=== PATIENT | male | born 1950 ===

== ENCOUNTER 2016-09-16 12:15 | Emergency (ER) | payer OTHER ==
[2016-09-16 12:15] VITALS: BMI 23.8
[2016-09-16] MEDS ORDERED: Sodium Chloride 0.9% 500 ML IV STA (13:38)
[2016-09-16 13:43] LABS: BASO # 0.1 K/uL (0.0-0.2); BASO % 1.2 % (0.0-2.0); EOS # 0.2 K/uL (0.0-0.7); EOS % 2.7 % (0.0-4.0); LYMPH # 1.6 K/uL (1.0-4.3); LYMPH % 21.2 % (20.0-40.0); MEAN CELL VOLUME 93.4 fl (80.0-94.0); MEAN CORPUSCULAR HEMOGLOBIN 31.4 pg (27.0-31.0); MEAN CORPUSCULAR HGB CONC 33.6 g/dL (33.0-37.0); MONO # 0.4 K/uL (0.0-0.8); MONO % 4.8 % (0.0-10.0); NEUT # 5.2 K/uL (1.8-7.0); NEUT % 70.1 % (50.0-75.0); RED CELL DISTRIBUTION WIDTH 14.4 % (11.5-14.5); WHITE BLOOD COUNT 7.3 K/uL (4.8-10.8)
[2016-09-16 13:54] LABS: ALB/GLOB RATIO 0.9 (1.0-2.1); ALKALINE PHOSPHATASE 82 U/L (38-126); ALT/SGPT 27 U/L (21-72); AST/SGOT 19 U/L (17-59); BILIRUBIN,TOTAL 0.1 mg/dl (0.2-1.3); BLOOD UREA NITROGEN 35 mg/dl (9-20); CALCIUM 8.5 mg/dL (8.4-10.2); CARBON DIOXIDE 23 mmol/L (22-30); CHLORIDE 110 mmol/L (98-107); GFR AFRICAN-AMERICAN > 60; GLUCOSE,RANDOM 230 mg/dL (75-110); POTASSIUM 4.2 MMOL/L (3.6-5.0); SODIUM 136 mmol/l (132-148); TOTAL PROTEIN 5.6 G/DL (6.3-8.2)
[2016-09-16] MEDS ORDERED: Sodium Chloride 0.9% 1,000 ML IV STA (14:00)
--- NOTE | 2016-09-16 14:11 | RAD ---
HISTORY: cough COMPARISON: Chest x-ray performed 08/24/16 TECHNIQUE: Chest PA and lateral FINDINGS: LUNGS: Small left pleural effusion and associated consolidation. No definite pneumothorax. Please note that chest x-ray has limited sensitivity for the detection of pulmonary masses. CARDIOVASCULAR: Heart size appears within normal limits. Atherosclerotic calcifications the aorta. OSSEOUS STRUCTURES: Degenerative changes. VISUALIZED UPPER ABDOMEN: Unremarkable. OTHER FINDINGS: None. IMPRESSION: Small left pleural effusion and associated consolidation.
--- NOTE | 2016-09-16 15:01 | ED PDOC ---
HPI: General Adult Time Seen by Provider: 09/16/16 13:09 Chief Complaint (Nursing): Dizziness/Lightheaded Chief Complaint (Provider): dizziness History Per: Patient, Other History/Exam Limitations: no limitations Additional Complaint(s): 66yo M in ED for eval of dizziness and vomiting x1 one with swelling to hands b/ l. Pt is homeless and part of care mngt for CHF pts-pt states he is complaint with CHF medication. denies FOSS, SOB, CP, abd pain, change in BM. in contact with CLOTILDE Nunez who suggests admission for observation due to symptom progression with compliance of medication. + Past Medical History Reviewed: Historical Data, Nursing Documentation, Vital Signs Vital Signs: Last Vital Signs Temp 97.8 F 09/16/16 12:25 Pulse 84 09/16/16 12:25 Resp 18 09/16/16 12:25 BP 138/74 09/16/16 12:25 Pulse Ox 99 09/16/16 15:10 - Medical History PMH: Anxiety, Bipolar Disorder, CHF, Depression, Diabetes (type II), HTN, Peripheral Edema, Pneumonia, Chronic Pain (b/l leg pain) Denies: Arthritis, COPD, HIV, Hypercholesterolemia, Hypothyroidism, Chronic Kidney Disease, Rheumatoid Arthritis - Family History Family History: States: Unknown Family Hx - Home Medications Home Medications: Ambulatory Orders Medication Instructions Recorded Furosemide [Lasix] 40 mg PO BID #60 tab 08/26/16 Lisinopril [Zestril] 40 mg PO DAILY #60 tab 08/26/16 MetFORMIN [glucoPHAGE] 1,000 mg PO BIDWM #60 tab 08/26/16 Metoprolol Tartrate [Lopressor] 50 mg PO Q12 #60 tab 08/26/16 Pentoxifylline [Pentoxil] 400 mg PO BID #60 ter 08/26/16 Spironolactone [Aldactone] 50 mg PO DAILY #30 tab 08/26/16 amLODIPine [Norvasc] 10 mg PO DAILY #30 tab 08/26/16 - Allergies Allergies/Adverse Reactions: Allergies Allergy/AdvReac Type Severity Reaction Status Date / Time No Known Allergies Allergy Verified 05/02/16 11:36 Review of Systems ROS Statement: Except As Marked, All Systems Reviewed And Found Negative Neurological: Positive for: Dizziness Physical Exam - Reviewed Nursing Documentation Reviewed: Yes Vital Signs Reviewed: Yes - Physical Exam Appears: Positive for: Non-toxic, No Acute Distress, Uncomfortable Head Exam: Positive for: ATRAUMATIC, NORMAL INSPECTION, NORMOCEPHALIC Skin: Positive for: Normal Color, Warm, DRY Eye Exam: Positive for: EOMI, Normal appearance, PERRL ENT: Positive for: Normal ENT Inspection Cardiovascular/Chest: Positive for: Regular Rate, Rhythm Respiratory: Positive for: CNT, Normal Breath Sounds Gastrointestinal/Abdominal: Positive for: Normal Exam, Bowel Sounds, Soft Back: Positive for: Normal Inspection Extremity: Positive for: Normal ROM Neurologic/Psych: Positive for: Alert, Oriented - Laboratory Results Result Diagrams: 09/16/16 13:21 09/16/16 13:21 - ECG O2 Sat by Pulse Oximetry: 99 - Radiology X-Ray: Read By Radiologist X-Ray Interpretation: No Acute Disease - Progress ED Course And Treament: Pt will get fluids, baisc labs, chest xray. Pt was evaulated by his PRODUCT DEVELOPMENT ENGINEER in the ER. Medical Decision Making Medical Decision Making: Pt with improving Pro-BNP: 09/16/16-2,960 from 9880 08/15/16 no elevated WBC. EKG nor NSR no ST elevation PT HR stable in ED. PT comfortable in ED sleeping-no complaints of dizziness, nausea. tolerated PO in ED. PRODUCT DEVELOPMENT ENGINEER Enrique, made aware. will f.u with pt in clinic. Disposition - Clinical Impression Clinical Impression: Dehydration - Patient ED Disposition Is Patient to be Admitted: No Counseled Patient/Family Regarding: Studies Performed, Diagnosis, Need For Followup, Rx Given - Disposition Disposition: Routine/Home Disposition Time: 15:59 Condition: STABLE Instructions: Dizziness (ED)
[2016-09-16 16:03] VITALS: BP 128/78; PULSE 78; RESP 20; O2SAT 98
[2016-09-16 17:37] VITALS: TEMP 97.6
== END 2016-09-16 17:37 | disposition home or self-care (01) ==
LOC: H.ER 12:15
DX: R42 Dizziness and giddiness (principal); E11.9 Type 2 diabetes mellitus without complications; Z79.84 Long term (current) use of oral hypoglycemic drugs; I10 Essential (primary) hypertension; F31.9 Bipolar disorder, unspecified; Z59.0 Homelessness; I50.9 Heart failure, unspecified

== ENCOUNTER 2016-10-18 15:40 | Inpatient (IN) | payer SELFPAY ==
[2016-10-18 15:40] VITALS: BMI 23.8
[2016-10-18 16:38] LABS: BASO # 0.1 K/uL (0.0-0.2); BASO % 1.5 % (0.0-2.0); EOS # 0.2 K/uL (0.0-0.7); EOS % 2.3 % (0.0-4.0); HEMATOCRIT 30.4 % (35.0-51.0); LYMPH # 1.9 K/uL (1.0-4.3); LYMPH % 27.6 % (20.0-40.0); MEAN CELL VOLUME 92.1 fl (80.0-94.0); MEAN CORPUSCULAR HEMOGLOBIN 31.9 pg (27.0-31.0); MEAN CORPUSCULAR HGB CONC 34.6 g/dL (33.0-37.0); MEAN PLATELET VOLUME 10.5 fl (7.2-11.7); MONO # 0.4 K/uL (0.0-0.8); MONO % 5.1 % (0.0-10.0); NEUT # 4.5 K/uL (1.8-7.0); NEUT % 63.5 % (50.0-75.0); NRBC % 0.1 % (0.0-0.0); RED CELL DISTRIBUTION WIDTH 14.8 % (11.5-14.5)
--- NOTE | 2016-10-18 16:49 | RAD ---
HISTORY: Abnormal EKG COMPARISON: 09/16/2016. TECHNIQUE: Chest PA and lateral FINDINGS: LUNGS: The right lung is clear. There is left lower lobe airspace disease. PLEURA: Again seen is a small left pleural effusion. No significant right pleural effusion identified. No pneumothorax apparent. CARDIOVASCULAR: The heart is normal in size. Atherosclerotic aortic arch calcifications are present. . OSSEOUS STRUCTURES: No significant abnormalities. VISUALIZED UPPER ABDOMEN: Normal. OTHER FINDINGS: None. IMPRESSION: Small left pleural effusion. Underlying atelectasis/pneumonia cannot be excluded. Follow-up to resolution is advised.
[2016-10-18 16:53] LABS: ALB/GLOB RATIO 0.8 (1.0-2.1); ALKALINE PHOSPHATASE 87 U/L (38-126); ALT/SGPT 30 U/L (21-72); AST/SGOT 30 U/L (17-59); BILIRUBIN,TOTAL 0.4 mg/dl (0.2-1.3); BLOOD UREA NITROGEN 46 mg/dl (9-20); CARBON DIOXIDE 20 mmol/L (22-30); CHLORIDE 114 mmol/L (98-107); GFR AFRICAN-AMERICAN > 60; GLUCOSE,RANDOM 186 mg/dL (75-110); SODIUM 141 mmol/l (132-148); TOTAL PROTEIN 5.3 G/DL (6.3-8.2)
--- NOTE | 2016-10-18 16:53 | ED PDOC ---
HPI: Hypertension/Hypotension Time Seen by Provider: 10/18/16 15:54 Chief Complaint (Nursing): High Blood Pressure Past Medical History Vital Signs: Last Vital Signs Temp 97.9 F 10/18/16 15:42 Pulse 81 10/18/16 15:42 Resp 20 10/18/16 15:42 BP 160/77 H 10/18/16 15:42 Pulse Ox 98 10/18/16 15:42 - Medical History PMH: Anxiety, Bipolar Disorder, CHF, Depression, Diabetes (type II), HTN, Peripheral Edema, Pneumonia, Chronic Pain (b/l leg pain) Denies: Arthritis, COPD, HIV, Hypercholesterolemia, Hypothyroidism, Chronic Kidney Disease, Rheumatoid Arthritis - Family History Family History: States: Unknown Family Hx - Home Medications Home Medications: Ambulatory Orders Medication Instructions Recorded Lisinopril [Zestril] 40 mg PO DAILY #60 tab 08/26/16 MetFORMIN [glucoPHAGE] 1,000 mg PO BIDWM #60 tab 08/26/16 Metoprolol Tartrate [Lopressor] 50 mg PO Q12 #60 tab 08/26/16 Spironolactone [Aldactone] 50 mg PO DAILY #30 tab 08/26/16 amLODIPine [Norvasc] 10 mg PO DAILY #30 tab 08/26/16 Furosemide [Lasix] 40 mg PO DAILY 10/18/16 - Allergies Allergies/Adverse Reactions: Allergies Allergy/AdvReac Type Severity Reaction Status Date / Time No Known Allergies Allergy Verified 10/18/16 15:41 - Laboratory Results Result Diagrams: 10/18/16 16:27 - ECG O2 Sat by Pulse Oximetry: 98 Medical Decision Making Medical Decision Making: Time: 16:48 --Chest X-ray FINDINGS: LUNGS: The right lung is clear. There is left lower lobe airspace disease. PLEURA: Again seen is a small left pleural effusion. No significant right pleural effusion identified. No pneumothorax apparent. CARDIOVASCULAR: The heart is normal in size. Atherosclerotic aortic arch calcifications are present. . OSSEOUS STRUCTURES: No significant abnormalities. VISUALIZED UPPER ABDOMEN: Normal. OTHER FINDINGS: None. IMPRESSION: Small left pleural effusion. Underlying atelectasis/pneumonia cannot be excluded. Follow-up to resolution is advised.
--- NOTE | 2016-10-18 17:20 | ED PDOC ---
HPI: Chest Pain Time Seen by Provider: 10/18/16 15:54 Chief Complaint (Nursing): High Blood Pressure Chief Complaint (Provider): ckg changes History Per: Patient History/Exam Limitations: no limitations Modifying Factors: None Exacerbating Factors: None Alleviating Factors: None Additional Complaint(s): 66yo M in ED for eval of dizziness and some blurred vision on the left side noted today- seen at clinic noted changes on EKG-peaked T-waves. pt has not been complaint with medication for 2 months. pt denies then any chest pain, shortness of breath abd pain or back pain. - Risk Factors PE Risk Factors: Pos: CHF TAD Risk Factors: Pos: Hypertension Past Medical History Reviewed: Historical Data, Nursing Documentation, Vital Signs Vital Signs: Last Vital Signs Temp 97.9 F 10/18/16 15:42 Pulse 81 10/18/16 15:42 Resp 20 10/18/16 15:42 BP 160/77 H 10/18/16 15:42 Pulse Ox 98 10/18/16 16:52 - Medical History PMH: Anxiety, Bipolar Disorder, CHF, Depression, Diabetes (type II), HTN, Peripheral Edema, Pneumonia, Chronic Pain (b/l leg pain) Denies: Arthritis, COPD, HIV, Hypercholesterolemia, Hypothyroidism, Chronic Kidney Disease, Rheumatoid Arthritis - Family History Family History: States: Unknown Family Hx - Home Medications Home Medications: Ambulatory Orders Medication Instructions Recorded Lisinopril [Zestril] 40 mg PO DAILY #60 tab 08/26/16 MetFORMIN [glucoPHAGE] 1,000 mg PO BIDWM #60 tab 08/26/16 Metoprolol Tartrate [Lopressor] 50 mg PO Q12 #60 tab 08/26/16 Spironolactone [Aldactone] 50 mg PO DAILY #30 tab 08/26/16 amLODIPine [Norvasc] 10 mg PO DAILY #30 tab 08/26/16 Furosemide [Lasix] 40 mg PO DAILY 10/18/16 - Allergies Allergies/Adverse Reactions: Allergies Allergy/AdvReac Type Severity Reaction Status Date / Time No Known Allergies Allergy Verified 10/18/16 15:41 MÓNICA Risk Score for UA/NSTEMI - MÓNICA Risk Score Age > 64: NO 3 or more CAD Risk Factors: NO Known CAD (Stenosis greater than 50%): NO Aspirin use in past 7 days: NO Severe Angina: NO EKG ST changes greater than 0.5mm: NO Positive Cardiac Marker: NO MÓNICA Score: 0 Risk %: 5% Curb-65 Severity Score - CURB-65 Severity Score Confusion: No Bun >19mg/dl (>7mmol/L): No Respiratory Rate greater than/equal to 30: No Systolic BP <90 or Diastolic BP less than/equal 60mmHg: No Age >64: No Curb-65 Score: 0 Percentage 30-day mortality: 0.6% Wells Criteria for PE - Wells Criteria for Pulmonary Embolism Clinical Signs and Symptoms of DVT: No P.E is #1 Diagnosis, or Equally Likely: No Heart Rate >100: No Immobilization at least 3 days;Surgery previous 4 weeks: No Previous, objectively diagnosed PE or DVT: No Hemoptysis: No Malignancy w/treatment within 6 months, or palliative: No Total Score: 0 Review of Systems ROS Statement: Except As Marked, All Systems Reviewed And Found Negative Cardiovascular: Positive for: Chest Pain. Negative for: Palpitations Neurological: Positive for: Dizziness Physical Exam - Reviewed Nursing Documentation Reviewed: Yes Vital Signs Reviewed: Yes - Physical Exam Appears: Positive for: Non-toxic, No Acute Distress Head Exam: Positive for: ATRAUMATIC, NORMAL INSPECTION, NORMOCEPHALIC Skin: Positive for: Normal Color, Warm, DRY Eye Exam: Positive for: EOMI, Normal appearance, PERRL ENT: Positive for: Normal ENT Inspection Neck: Positive for: Normal, Painless ROM Cardiovascular/Chest: Positive for: Regular Rate, Rhythm Respiratory: Positive for: CNT, Normal Breath Sounds Neurologic/Psych: Positive for: Alert, Oriented - Laboratory Results Result Diagrams: 10/18/16 16:27 10/18/16 16:27 - ECG ECG Rhythm: Positive for: Sinus Rhythm Interpretation Of Abn EKG: peaked T-waves in V2-V-5. changed from last EKG. O2 Sat by Pulse Oximetry: 98 - Radiology X-Ray: Read By Radiologist (domenica effusion, sm. ) - Progress ED Course And Treament: pt will get cardiac work up to r/o abnormal K+ and or cardiac enzymes Re-evaluation Time: 17:49 Condition: Re-examined (while in ED pt c/o of intermittent CP. given morphine 2mg IV . VS and cardiac montior normal) Medical Decision Making Medical Decision Making: Pt will be admitted to telelmetry due to EKG changes and CP to family medicine. stable at time of admission. pt explained the need for admission and understands and agrees. Disposition - Clinical Impression Clinical Impression: Chest pain - Patient ED Disposition Is Patient to be Admitted: Yes - Disposition Disposition Time: 17:51 Condition: FAIR - POA Present On Arrival: None
--- NOTE | 2016-10-18 17:54 | CP.PCM.HP ---
History of Present Illness - History of Present Illness History of Present Illness: 66yo M with PMHx DM, HTN, diastolic CHF, nephrotic syndrome, vascular disease, and Bipolar Disorder admitted for chest pain and uncontrolled HTN. chest pain x1 day, started at 4PM today, 15min duration, no radiation, sharp. a/w SOB. Was in the clinic today, sent to ED for elevated BP with T waves on EKG, received clonidine 0.1mg in the clinic for BP 186/86. Previous admission for anasasarca and chest pain. Prior renal duplex WNL. Last ECHO with LVEF 45-50%. Pt homeless and states compliance with medications. Denies fever, chills, nausea, vomiting, H/A, abd pain, diarrhea, dysuria, hematuria. Does not go to shelters. Not able to report if sleeping on additional pillows or inclined for often. Able to walk 20 blocks and/or 5-10 flights of stairs with no chest pain or SOB. Not able to report weight changes. SHx: smoker 1/2ppd x30 years, denies EtOH, denies drugs Allergies: NKDA Meds: checked on [facility] PCP: [facility] ED course: afebrile, BP 160/77 CBC, CMP, coag morphine 2mg IVP EKG NSR CXR UA troponin neg BNP 4330 Present on Admission - Present on Admission Any Indicators Present on Admission: No Review of Systems - Constitutional Constitutional: absent: Chills, Fever - EENT Eyes: Blurred Vision - Cardiovascular Cardiovascular: Chest Pain. absent: Dyspnea - Respiratory Respiratory: absent: Cough, Dyspnea - Gastrointestinal Gastrointestinal: absent: Abdominal Pain, Diarrhea, Nausea, Vomiting - Genitourinary Genitourinary: absent: Dysuria, Hematuria - Musculoskeletal Musculoskeletal: absent: Back Pain - Neurological Neurological: absent: Headaches Past Patient History - Infectious Disease Hx of Infectious Diseases: None - Tetanus Immunizations Tetanus Immunization: Unknown - Past Medical History & Family History Past Medical History?: Yes - Past Social History Smoking Status: Light Smoker < 10 Cigarettes Daily - CARDIAC Hx Congestive Heart Failure: Yes Hx Hypercholesterolemia: No Hx Hypertension: Yes Hx Peripheral Edema: Yes - PULMONARY Hx Chronic Obstructive Pulmonary Disease (COPD): No Hx Pneumonia: Yes - NEUROLOGICAL Hx Neurological Disorder: No - HEENT Hx HEENT Problems: No - RENAL Hx Chronic Kidney Disease: No - ENDOCRINE/METABOLIC Hx Hypothyroidism: No - HEMATOLOGICAL/ONCOLOGICAL Hx Human Immunodeficiency Virus (HIV): No - INTEGUMENTARY Hx Dermatological Problems: Yes - MUSCULOSKELETAL/RHEUMATOLOGICAL Hx Arthritis: No Hx Rheumatoid Arthritis: No - GASTROINTESTINAL Hx Gastrointestinal Disorders: No - GENITOURINARY/GYNECOLOGICAL Hx Genitourinary Disorders: No - PSYCHIATRIC Hx Anxiety: Yes Hx Bipolar Disorder: Yes Hx Depression: Yes - SURGICAL HISTORY Hx Surgeries: No - ANESTHESIA Hx Anesthesia: Yes Hx Anesthesia Reactions: No Hx Malignant Hyperthermia: No Meds Allergies/Adverse Reactions: Allergies Allergy/AdvReac Type Severity Reaction Status Date / Time No Known Allergies Allergy Verified 10/18/16 15:41 Physical Exam - Constitutional Appears: Well, No Acute Distress - Head Exam Head Exam: ATRAUMATIC, NORMAL INSPECTION - Eye Exam Eye Exam: Normal appearance - ENT Exam ENT Exam: Normal Exam - Neck Exam Neck exam: Positive for: Normal Inspection - Respiratory Exam Respiratory Exam: Rales (b/l lower lung bases) - Cardiovascular Exam Cardiovascular Exam: REGULAR RHYTHM - GI/Abdominal Exam GI & Abdominal Exam: Normal Bowel Sounds, Soft - Extremities Exam Extremities exam: Positive for: normal capillary refill, pedal edema, pedal pulses present - Neurological Exam Neurological exam: Alert, Oriented x3 - Skin Skin Exam: Dry, Warm Results - Vital Signs Recent Vital Signs: Last Vital Signs Temp 97.9 F 10/18/16 15:42 Pulse 81 10/18/16 15:42 Resp 20 10/18/16 15:42 BP 160/77 H 10/18/16 15:42 Pulse Ox 98 10/18/16 17:51 - Labs Result Diagrams: 10/18/16 16:27 10/18/16 16:27 Labs: Laboratory Results - last 24 hr 10/18/16 16:27 WBC 7.0 RBC 3.30 L Hgb 10.5 L Hct 30.4 L MCV 92.1 MCH 31.9 H MCHC 34.6 RDW 14.8 H Plt Count 209 MPV 10.5 Neut % (Auto) 63.5 Lymph % (Auto) 27.6 [place] % (Auto) 5.1 Eos % (Auto) 2.3 Baso % (Auto) 1.5 Neut # 4.5 Lymph # 1.9 [place] # 0.4 Eos # 0.2 Baso # 0.1 Sodium 141 Potassium 5.0 Chloride 114 H Carbon Dioxide 20 L Anion Gap 12 BUN 46 H Creatinine 1.3 Est GFR ( Amer) > 60 Est GFR (Non-Af Amer) 55 Random Glucose 186 H Calcium 8.0 L Total Bilirubin 0.4 AST 30 ALT 30 Alkaline Phosphatase 87 Troponin I 0.0140 NT-Pro-B Natriuret Pep 4330 H Total Protein 5.3 L Albumin 2.4 L Globulin 2.9 Albumin/Globulin Ratio 0.8 L Assessment & Plan - Assessment and Plan (Free Text) Assessment: 66yo M with PMHx DM, HTN, diastolic CHF, nephrotic syndrome, vascular disease, and Bipolar Disorder admitted for chest pain and uncontrolled HTN. chest pain -r/o ACS -reviewed labs from 08/16/16: lipid panel -trend troponin -EKG -ASA 81mg CHF exacerbation -ECHO LVEF 45-50% -BNP 4330 -ACEi, BB -lasix 40mg IV BID -daily weight -I/O uncontrolled HTN -c/w home meds DM -reviewed labs from 08/16/16: HgBA1c 9.4 -held metformin -accuchecks -SSI pseudohypocalcemia -baseline low albumin -monitor DVT ppx -lovenox Decision To Admit - Pt Status Changed To: Hospital Disposition Of: Inpatient - Admit Certification Admit to Inpatient:: After my assessment, the patient will require hospitalization for at least two midnights. This is because of the severity of symptoms shown, intensity of services needed, and/or the medical risk in this patient being treated as an outpatient. - . Bed Request Type: Telemetry Admitting Physician: Mary Jane Ferguson
[2016-10-18] MEDS ORDERED: Glucagon Recombinant 1 mg Inj IM PRN (18:27)
[2016-10-18] MEDS ORDERED: Dextrose 50% SYRINGE Inj (50 ml) IV PRN (18:27)
[2016-10-18 18:48] LABS: RBC URINE 12 /hpf (0-3); URINE BACTERIA FEW (<OCC); URINE BILIRUBIN NEGATIVE (NEGATIVE); URINE BLOOD SMALL (NEGATIVE); URINE COLOR YELLOW (YELLOW); URINE GLUCOSE (UA) >=500 mg/dL (Normal); URINE KETONE NEGATIVE (NEGATIVE); URINE LEUKOCYTE ESTERASE NEG Leu/uL (Negative); URINE PROTEIN >=500 mg/dL (NEGATIVE); URINE UROBILINOGEN 0.2-1.0 mg/dL (0.2-1.0); WBC URINE 1 /hpf (0-5)
[2016-10-18 19:24] LABS: PARTIAL THROMBOPLASTIN TIME 28.9 SECONDS (23.3-32.5)
[2016-10-18] MEDS: Insulin Regular 100 units/ml SC SCH (21:30)
[2016-10-19 05:07] LABS: HEMATOCRIT 26.4 % (35.0-51.0); MEAN CELL VOLUME 92.9 fl (80.0-94.0); MEAN CORPUSCULAR HEMOGLOBIN 30.8 pg (27.0-31.0); MEAN CORPUSCULAR HGB CONC 33.2 g/dL (33.0-37.0); RED CELL DISTRIBUTION WIDTH 14.5 % (11.5-14.5); WHITE BLOOD COUNT 6.5 K/uL (4.8-10.8)
[2016-10-19 05:13] LABS: ALB/GLOB RATIO 0.8 (1.0-2.1); ALKALINE PHOSPHATASE 83 U/L (38-126); ALT/SGPT 32 U/L (21-72); AST/SGOT 19 U/L (17-59); BILIRUBIN,TOTAL 0.1 mg/dl (0.2-1.3); BLOOD UREA NITROGEN 42 mg/dl (9-20); CARBON DIOXIDE 21 mmol/L (22-30); CHLORIDE 115 mmol/L (98-107); GFR AFRICAN-AMERICAN > 60; GLUCOSE,RANDOM 193 mg/dL (75-110); POTASSIUM 4.4 MMOL/L (3.6-5.0); SODIUM 141 mmol/l (132-148); TOTAL PROTEIN 4.5 G/DL (6.3-8.2)
[2016-10-19] MEDS: Insulin Regular 100 units/ml SC SCH ×4 (06:40→21:18)
--- NOTE | 2016-10-19 08:06 | CP.PCM.PN ---
Subjective - Date & Time of Evaluation Date of Evaluation: 10/19/16 Time of Evaluation: 07:30 - Subjective Subjective: The patient is a 66 y/o man w/ PMHx of DM, HTN, diastolic CHF, nephrotic syndrome, vascular disease, and Bipolar Disorder admitted for chest pain and uncontrolled HTN. The patient was seen this morning. There are no acute events overnight. The patient is not in acute distress. The patient is laying in bed. The patient reports that he is pain free this morning and that overnight the pain was less than initial presentation. The patient mainly complains of left leg pain. The patient reports that he is able to sleep without issue except if he were to turn to his left side due to left leg pain. The patient reports that the right leg has mild pain. The patient denies headaches, dizziness, dyspnea, abdominal pain, nausea, vomiting, diarrhea, dysuria, and fevers. Objective - Vital Signs/Intake and Output Vital Signs (last 24 hours): Temp Pulse Resp BP Pulse Ox 98.3 F 66 19 177/74 H 98 10/19/16 04:50 10/19/16 04:50 10/19/16 04:50 10/19/16 04:50 10/19/16 04:50 Intake and Output: 10/19/16 10/19/16 06:59 18:59 Intake Total 480 Output Total 550 Balance -70 - Medications Medications: Current Medications Amlodipine Besylate (Norvasc) 10 mg PO DAILY [facility] Aspirin (Aspirin Chewable) 81 mg PO DAILY [facility] Dextrose (Glutose 15) 0 gm PO ONCE PRN; Protocol PRN Reason: Hypoglycemia Protocol Dextrose (Dextrose 50% Inj) 0 ml IV STAT PRN; Protocol PRN Reason: Hyglycemia Protocol Enoxaparin Sodium (Lovenox) 40 mg SC DAILY [facility] PRN Reason: Protocol Furosemide (Lasix) 40 mg IV BID [facility] Glucagon (Glucagen Diagnostic Kit) 0 mg IM STAT PRN; Protocol PRN Reason: Hypoglycemia Protocol Insulin Human Regular (Humulin R) 0 units SC ACHS [facility] PRN Reason: Protocol Last Admin: 10/19/16 06:40 Dose: 3 u Lisinopril (Zestril) 40 mg PO DAILY [facility] Metoprolol Tartrate (Lopressor) 50 mg PO Q12 [facility] Last Admin: 10/18/16 21:24 Dose: 50 mg Nicotine (Nicoderm Cq) 1 patch TD DAILY [facility] Spironolactone (Aldactone) 50 mg PO DAILY [facility] - Labs Labs: 10/19/16 05:00 10/19/16 05:00 PT 9.6 SECONDS (9.6-11.2) 10/18/16 16:27 INR 0.92 (0.92-1.08) 10/18/16 16:27 APTT 28.9 SECONDS (23.3-32.5) 10/18/16 16:27 - Constitutional Appears: No Acute Distress - Head Exam Head Exam: ATRAUMATIC, NORMOCEPHALIC - Eye Exam Eye Exam: EOMI Pupil Exam: PERRL - ENT Exam ENT Exam: Mucous Membranes Moist - Respiratory Exam Respiratory Exam: absent: Accessory Muscle Use, Chest Wall Tenderness, Decreased Breath Sounds, Prolonged Expiratory Phase, Rales, Rhonchi, Wheezes, Respiratory Distress, Stridor Additional comments: mild bibasilar crackles - Cardiovascular Exam Cardiovascular Exam: REGULAR RHYTHM. absent: Tachycardia - GI/Abdominal Exam GI & Abdominal Exam: Soft, Normal Bowel Sounds. absent: Distended, Tenderness - Extremities Exam Extremities Exam: Calf Tenderness, Pedal Edema, Tenderness. absent: Joint Swelling Additional comments: Patient has left thigh and calf tenderness, +1 pitting edema, chronic venous insufficiency, faint DP and PT pulses, negative Kaylyn's sign, no erythema Right lower extremity also has +1 pitting edema, chronic venous insufficiency, but no thigh or calf tenderness - Neurological Exam Neurological Exam: Alert, Awake, Oriented x3 - Skin Skin Exam: Dry, Intact, Normal Color, Warm Assessment and Plan - Assessment and Plan (Free Text) Assessment: The patient is a 66 y/o man w/ PMHx of DM, HTN, diastolic CHF, nephrotic syndrome, vascular disease, and Bipolar Disorder admitted for chest pain and uncontrolled HTN. Plan: 1. Chest Pain - r/o ACS - troponins x2 neg - follow up 3rd troponin - follow up EKG - Aspirin 81 mg PO daily - follow up chest CT w/o contrast 2. CHF Exacerbation - NYHA Class I, diastolic CHF - ECHO 08/16/2016: LVEF 45-50%, LV normal size, moderate concentric LV hypertrophy, borderline LV systolic function - pro-BNP 4330 - lisinopril 40 mg PO daily - metoprolol tartrate 50 mg PO Q12h - lasix 40 mg IV BID - spironolactone 50 mg PO daily - daily weight: 144 lb - I/O: -70 3. HTN- uncontrolled - 182/79 mmHg - currently denies headaches, vision change, nausea, vomiting, dyspnea - amlodipine 10 mg PO daily - lisinopril 40 mg PO daily - lasix 40 mg IV BID - metoprolol 50 mg PO Q12h - start hydralazine 25 mg PO TID - continue to monitor especially for acute changes - follow up AM cortisol, TSH, Vit D. 25-OH, aldosterone, metaneprhine - Nephrology consulted, Dr. Trimble, is aware 4. Left Calf Pain - negative Kaylyn's sign - follow up bilateral venous duplex ultrasound 5. Anemia of chronic disease - Hb 8.8 - normocytic, normochromic - follow up occult blood - follow up CBC tomorrow AM 6. Diabetes Mellitus Type 2 - non-insulin dependent - fingerstick: 274 - HbA1c 08/16/16: 9.4% - held metformin - accuchecks - Regular insulin sliding scale - hypoglycemic protocol 7. Pseudohypocalcemia - baseline low albumin - monitor 8. DVT prophylaxis - lovenox 40 mg SC daily 9. Nicotine dependence - smokes 1/2 pack/day for 52 years - nicotine patch daily
[2016-10-19] MEDS: Enoxaparin 40 mg Syringe SC SCH ×2 (09:01→09:28)
--- NOTE | 2016-10-19 12:27 | CT ---
PROCEDURE: CT Chest without contrast HISTORY: Chest pain, smoker x 52 years COMPARISON: None. TECHNIQUE: Contiguous axial images were obtained through the chest without intravenous contrast enhancement. Sagittal and coronal reconstructions were performed. Radiation dose (DLP): 329.50 mGy-cm. This CT exam was performed using one or more of the following dose reduction techniques: Automated exposure control, adjustment of the mA and/or kV according to patient size, and/or use of iterative reconstruction technique. FINDINGS: LUNGS: There is a 15 mm subpleural cavity in the superior segment of the right lower lobe. There are discrete nodular densities along the wall of the cavity, the largest lateral nodule measures 9 mm. There is paraseptal emphysema in both lungs and scattered centrilobular emphysema.There is no mass or consolidation. There is subsegmental atelectasis/scarring in the lingula and both lower lobes. There are no endobronchial lesions. MEDIASTINUM: The aorta is not dilated. There is mild cardiomegaly. There is trace pericardial effusion. There are subcentimeter mediastinal lymph nodes, likely reactive in etiology. PLEURA: There is a large left pleural effusion and compressive atelectasis of the left lower lobe and a small right pleural effusion and compressive atelectasis in the right lower lobe. No pneumothorax. BONES: No fracture. No destructive lesion. Within normal limits for the patient's age. UPPER ABDOMEN: Both adrenal glands are normal. There is nonspecific perinephric fat stranding. OTHER FINDINGS: There is mild anasarca. IMPRESSION: 1. 15 mm subpleural cavity in the superior segment of the right lower lobe with discrete nodular densities along the wall, the largest lateral nodule measures 9 mm. Findings may be related to nonspecific infection however neoplastic etiology is not entirely excluded. Short-term interval follow-up in 3 months is recommended or correlation with CT examination is recommended to assess stability/ resolution and benign versus malignant etiology. 2. Large left and small right pleural effusions with compressive atelectasis. 3. Additional comments as described above.
--- NOTE | 2016-10-19 12:35 | US ---
PROCEDURE: Bilateral lower extremity venous duplex Doppler. HISTORY: Left thigh and calf pain; r/o DVT COMPARISON: None available. TECHNIQUE: Bilateral common femoral, superficial femoral, popliteal and posterior tibial veins were evaluated. Flow was assessed with color Doppler, compressibility, assessment of phasic flow and augmentation response. FINDINGS: COMMON FEMORAL VEIN: Right CFV: Normal color flow, compressibility and augmentation response. Left CFV: Normal color flow, compressibility and augmentation response. SUPERFICIAL FEMORAL VEIN: Right SFV: Normal color flow, compressibility and augmentation response. Left SFV: Normal color flow, compressibility and augmentation response. POPLITEAL VEIN: Right Popliteal: Normal color flow, compressibility and augmentation response. Left Popliteal: Normal color flow, compressibility and augmentation response. POSTERIOR TIBIAL VEIN: Right PTV: Normal color flow, compressibility and augmentation response. Left PTV: Normal color flow, compressibility and augmentation response. OTHER FINDINGS: None. IMPRESSION: No evidence of deep venous thrombosis.
--- NOTE | 2016-10-19 20:41 | CP.PCM.CON ---
History of Present Illness - History of Present Illness History of Present Illness: pt seen and examined, full consult is dictated #[id number] 1. htn, uncontrolled, add hydralazine and titrate as needed 2. ckd-3, r/o dm n vs htn nephrosclerosis, vs ch gn 3. proteinuria 4. b/l pleural effusion , left >rt 5. anemia check 24 hr up,cr. crcl, isrrael, c3, c4, hept.b, c serology, upep, fe, tibc, ferritin u/s of kidneys Past Patient History - Infectious Disease Hx of Infectious Diseases: None - Tetanus Immunizations Tetanus Immunization: Unknown - Past Medical History & Family History Past Medical History?: Yes - Past Social History Smoking Status: Light Smoker < 10 Cigarettes Daily - CARDIAC Hx Congestive Heart Failure: Yes Hx Hypercholesterolemia: No Hx Hypertension: Yes Hx Peripheral Edema: Yes - PULMONARY Hx Chronic Obstructive Pulmonary Disease (COPD): No Hx Pneumonia: Yes - NEUROLOGICAL Hx Neurological Disorder: No - HEENT Hx HEENT Problems: No - RENAL Hx Chronic Kidney Disease: No - ENDOCRINE/METABOLIC Hx Hypothyroidism: No - HEMATOLOGICAL/ONCOLOGICAL Hx Human Immunodeficiency Virus (HIV): No - INTEGUMENTARY Hx Dermatological Problems: Yes - MUSCULOSKELETAL/RHEUMATOLOGICAL Hx Arthritis: No Hx Rheumatoid Arthritis: No - GASTROINTESTINAL Hx Gastrointestinal Disorders: No - GENITOURINARY/GYNECOLOGICAL Hx Genitourinary Disorders: No - PSYCHIATRIC Hx Anxiety: Yes Hx Bipolar Disorder: Yes Hx Depression: Yes - SURGICAL HISTORY Hx Surgeries: No - ANESTHESIA Hx Anesthesia: Yes Hx Anesthesia Reactions: No Hx Malignant Hyperthermia: No Meds Allergies/Adverse Reactions: Allergies Allergy/AdvReac Type Severity Reaction Status Date / Time No Known Allergies Allergy Verified 10/18/16 15:41 - Medications Medications: Current Medications Amlodipine Besylate (Norvasc) 10 mg PO DAILY [facility] Last Admin: 10/19/16 09:00 Dose: 10 mg Aspirin (Aspirin Chewable) 81 mg PO DAILY [facility] Last Admin: 10/19/16 09:01 Dose: 81 mg Clonidine HCl (Catapres) 0.1 mg PO BID [facility] Last Admin: 10/19/16 16:52 Dose: 0.1 mg Dextrose (Glutose 15) 0 gm PO ONCE PRN; Protocol PRN Reason: Hypoglycemia Protocol Dextrose (Dextrose 50% Inj) 0 ml IV STAT PRN; Protocol PRN Reason: Hyglycemia Protocol Enoxaparin Sodium (Lovenox) 40 mg SC DAILY [facility] PRN Reason: Protocol Last Admin: 10/19/16 09:28 Dose: Not Given Furosemide (Lasix) 40 mg IV BID [facility] Last Admin: 10/19/16 17:22 Dose: 40 mg Glipizide (Glucotrol) 5 mg PO ACBD [facility] Last Admin: 10/19/16 16:52 Dose: 5 mg Glucagon (Glucagen Diagnostic Kit) 0 mg IM STAT PRN; Protocol PRN Reason: Hypoglycemia Protocol Hydralazine HCl (Apresoline) 25 mg PO TID [facility] Last Admin: 10/19/16 16:52 Dose: 25 mg Insulin Human Regular (Humulin R) 0 units SC ACHS [facility] PRN Reason: Protocol Last Admin: 10/19/16 16:53 Dose: 3 u Lisinopril (Zestril) 40 mg PO DAILY [facility] Last Admin: 10/19/16 09:00 Dose: 40 mg Metoprolol Tartrate (Lopressor) 50 mg PO Q12 [facility] Last Admin: 10/19/16 09:01 Dose: 50 mg Nicotine (Nicoderm Cq) 1 patch TD DAILY [facility] Last Admin: 10/19/16 09:01 Dose: 1 patch Spironolactone (Aldactone) 50 mg PO DAILY [facility] Last Admin: 10/19/16 09:00 Dose: 50 mg Results - Vital Signs Recent Vital Signs: Last Vital Signs Temp 98.7 F 10/19/16 20:33 Pulse 70 10/19/16 20:33 Resp 20 10/19/16 20:33 BP 167/71 H 10/19/16 20:33 Pulse Ox 97 10/19/16 20:33 - Labs Result Diagrams: 10/19/16 05:00 10/19/16 05:00 Labs: Laboratory Results - last 24 hr 10/18/16 10/18/16 10/19/16 20:01 21:21 05:00 WBC 6.5 RBC 2.84 L Hgb 8.8 L Hct 26.4 L MCV 92.9 MCH 30.8 MCHC 33.2 RDW 14.5 Plt Count 176 Sodium 141 Potassium 4.4 Chloride 115 H Carbon Dioxide 21 L Anion Gap 9 L BUN 42 H Creatinine 1.3 Est GFR ( Amer) > 60 Est GFR (Non-Af Amer) 55 POC Glucose (mg/dL) 280 H 234 H Random Glucose 193 H Calcium 8.0 L Total Bilirubin 0.1 L AST 19 ALT 32 Alkaline Phosphatase 83 Troponin I < 0.0120 Total Protein 4.5 L Albumin 2.0 L Globulin 2.5 Albumin/Globulin Ratio 0.8 L 10/19/16 10/19/16 10/19/16 05:13 10:49 12:10 WBC RBC Hgb Hct MCV MCH MCHC RDW Plt Count Sodium Potassium Chloride Carbon Dioxide Anion Gap BUN Creatinine Est GFR ( Amer) Est GFR (Non-Af Amer) POC Glucose (mg/dL) 274 H 192 H Random Glucose Calcium Total Bilirubin AST ALT Alkaline Phosphatase Troponin I < 0.0120 Total Protein Albumin Globulin Albumin/Globulin Ratio 10/19/16 15:50 WBC RBC Hgb Hct MCV MCH MCHC RDW Plt Count Sodium Potassium Chloride Carbon Dioxide Anion Gap BUN Creatinine Est GFR ( Amer) Est GFR (Non-Af Amer) POC Glucose (mg/dL) 252 H Random Glucose Calcium Total Bilirubin AST ALT Alkaline Phosphatase Troponin I Total Protein Albumin Globulin Albumin/Globulin Ratio
--- NOTE | 2016-10-20 00:30 | CON ---
DATE: 10/19/2016 RENAL CONSULTATION REQUESTING PHYSICIAN: Elizabeth Kelley MD. REASON FOR RENAL CONSULTATION: Proteinuria, uncontrolled hypertension. HISTORY OF PRESENT ILLNESS: The patient is a 66-year-old male with a past medical history significant for longstanding hypertension, diabetes, proteinuria, chronic kidney disease, intermittent claudication, bipolar disorder , bilateral lower extremity swelling, and ETOH abuse, who was admitted for chest pain and uncontrolled hypertension. Chest pain was for 1 day and prior to the admission and lasted for about 15 minutes. No radiation. Sharp in nature and associated with shortness of breath. The patient was sent from the clinic for elevated blood pressure. The patient is not in acute distress. No headache, no dizziness, no nausea, vomiting, diarrhea. No abdominal pain. No dysuria or frequency. PAST MEDICAL HISTORY: Again, significant for hypertension, diabetes, depression , bipolar, anxiety, chronic leg pain, intermittent claudication, and pneumonia. PAST SURGICAL HISTORY: Questionable angiogram of both lower extremities and questionable angioplasty. The patient does not know exactly which was done in [facility]. ALLERGIES: No known drug allergies. SOCIAL HISTORY: The patient is a smoker, used to smoke 3-4 packs before, now he is smoking 1 pack per day. Occasional alcohol use and no drug abuse. PERSONAL HISTORY: He is single. No children. FAMILY HISTORY: Not significant. CURRENT MEDICATIONS: Include spironolactone 50 mg p.o. daily, hydralazine 25 mg p.o. t.i.d., aspirin 81 mg p.o. daily, Catapres 0.1 mg p.o. b.i.d., glipizide 5 mg p.o. a.c. daily, insulin for sliding scale, Lasix 40 mg IV b.i.d. , metoprolol 50 mg p.o. q.12 hours, Lovenox 40 mg p.o. daily, Nicoderm patch 1 patch daily, amlodipine 10 mg p.o. daily, and lisinopril 40 mg p.o. daily. REVIEW OF SYSTEMS: Significant for chest discomfort and swelling of the legs, and also pain around the areola of the nipple, and tenderness. All other review of systems are reviewed and are negative. PHYSICAL EXAMINATION: VITAL SIGNS: Blood pressure 167/71, pulse 70, respirations 20, temperature 98.7 , saturation 96 %, 5 feet 5 inches, and weight is 144 pounds. GENERAL: The patient is a 66-year-old male, moderately built, moderately nourished, not in acute distress. HEENT: Pupils normal, reactive to light and accommodation. Conjunctivae pink. Sclerae anicteric. Tongue is moist. NECK: Trachea is midline. LUNGS: Symmetric on both sides. Bilateral breath sounds present. No crackles. CARDIOVASCULAR: Fenton at the 5th intercostal space midclavicular line. S1 and S2 audible. No murmur or gallop. ABDOMEN: Normal in appearance, soft, tympanic. No guarding, no hepatosplenomegaly. CENTRAL NERVOUS SYSTEM: The patient is alert, awake, oriented x 2-3. Sensory and motor systems are grossly within normal limits. EXTREMITIES: No cyanosis, no clubbing, no edema. LABORATORY DATA: Include as follows: As of 10/19/2016, WBC 6.5, hemoglobin 8.8 , hematocrit is 26.4, platelets 176. Sodium 141, potassium 4.4, chloride 115, CO2 21, BUN 42, creatinine 1.3, GFR is 55, glucose 193, calcium is 8, total bili 0.1, AST 19, ALT 32, alkaline phosphatase 83, Troponin 0.012 and second set 0.012. Chest x-ray as of 10/18/2016: A small left pleural effusion, underlying atelectasis. Pneumonia cannot be excluded. Extremity ultrasound: No evidence of deep vein thrombosis. CT of the chest as of 10/19/2016: A 15 mm subpleural cavity in the superior segment of the right lower lobe with discrete nodular densities along the wall, the largest lateral margin measures 9 mm. Findings may be related to nonspecific infection; however, a neoplastic etiology is not entirely excluded. A short-term interval followup in 3 months is recommended or correlation with the CT examination is recommended to assess the stability or resolution and benign versus malignant etiology. Large left and small right pleural effusion with compressive atelectasis. His other laboratory data include as follows: Urinalysis as of 10/18/2016: Urine color yellow, clear, pH 6, specific gravity 1.017, protein more than 500, glucose more than 500, ketones negative, blood small, nitrites negative, bilirubin is negative, bilirubin 0.2-1.0, leukocyte esterase negative, and RBCs 12, WBCs 1, bacteria few, hyaline casts 0-2. SUMMARY: The patient is a 66-year-old male with a history of longstanding hypertension, diabetes, bipolar disorder, intermittent claudication , anxiety, active smoker, who was admitted with chest discomfort and uncontrolled hypertension. 1. Chronic kidney disease, stage III, most likely secondary to the diabetic nephropathy. Cannot rule out underlying hypertensive nephrosclerosis. 2. Proteinuria, massive. Rule out diabetic nephropathy versus chronic glomerulonephritis. 3. Diabetes. 4. Edema, most likely secondary to proteinuria and fluid overload. 5. Bilateral pleural effusions, left more than the right. The Lasix was increased to 40 mg IV b.i.d. Monitor BMP daily. Hydralazine 25 mg p.o. t.i.d. was added for better control of the pressure. Continue Norvasc and continue Zestril, and also spironolactone. Monitor for hyperkalemia due to Zestril and spironolactone. Check echocardiogram for left ventricular ejection fraction. Consider to discontinue spironolactone due to bilateral areolar pain, most likely secondary to spironolactone. Will also check hepatitis B and C serology , ELIJAH, Complement level C3-C4, 24-hour urine protein, creatinine clearance, and ultrasound of kidneys for size, if not done recently. Thank you for allowing me to participate in your patient's care. Blas Trimble MD cc: [id number] TT: 10/20/2016 00:29:04 Confirmation # [id number] Dictation # [id number] manjeet PATTERSON
[2016-10-20] MEDS: Insulin Regular 100 units/ml SC SCH ×4 (06:41→21:54)
[2016-10-20 07:24] LABS: IRON 51 ug/dL (49-181)
[2016-10-20 07:36] LABS: HEMATOCRIT 28.5 % (35.0-51.0); MEAN CELL VOLUME 92.1 fl (80.0-94.0); MEAN CORPUSCULAR HEMOGLOBIN 31.6 pg (27.0-31.0); MEAN CORPUSCULAR HGB CONC 34.3 g/dL (33.0-37.0); RED CELL DISTRIBUTION WIDTH 15.1 % (11.5-14.5); WHITE BLOOD COUNT 7.7 K/uL (4.8-10.8)
[2016-10-20 07:57] LABS: THYROID STIMULATING HORMONE 3.34 mIU/ML (0.46-4.68)
[2016-10-20] MEDS: Enoxaparin 40 mg Syringe SC SCH ×2 (08:36→08:43)
--- NOTE | 2016-10-20 09:11 | CP.PCM.PN ---
Subjective - Date & Time of Evaluation Date of Evaluation: 10/20/16 Time of Evaluation: 08:00 - Subjective Subjective: Pt lying comfortably in bed upon entering room. Denies any current complaints, however, does state that pt had headache overnight for which he was given tylenol and "another BP medicine." Pt reports that this improved his headache and was able to sleep through the night after that. Denies any further episodes of chest pain. Denies SOB, fever, chills, cough, N/ V/D or abdominal pain. States that the leg pain he was having yesterday has significantly improved. Objective - Vital Signs/Intake and Output Vital Signs (last 24 hours): Temp Pulse Resp BP Pulse Ox 97.7 F 63 20 183/81 H 96 10/20/16 08:00 10/20/16 08:38 10/20/16 08:00 10/20/16 08:41 10/20/16 08:00 - Medications Medications: Current Medications Amlodipine Besylate (Norvasc) 10 mg PO DAILY [facility] Last Admin: 10/20/16 08:36 Dose: 10 mg Aspirin (Aspirin Chewable) 81 mg PO DAILY [facility] Last Admin: 10/20/16 08:36 Dose: 81 mg Clonidine HCl (Catapres) 0.1 mg PO BID [facility] Last Admin: 10/20/16 08:34 Dose: 0.1 mg Dextrose (Glutose 15) 0 gm PO ONCE PRN; Protocol PRN Reason: Hypoglycemia Protocol Dextrose (Dextrose 50% Inj) 0 ml IV STAT PRN; Protocol PRN Reason: Hyglycemia Protocol Enoxaparin Sodium (Lovenox) 40 mg SC DAILY [facility] PRN Reason: Protocol Last Admin: 10/20/16 08:43 Dose: Not Given Furosemide (Lasix) 40 mg IV BID [facility] Last Admin: 10/20/16 08:41 Dose: 40 mg Glipizide (Glucotrol) 5 mg PO ACBD [facility] Last Admin: 10/20/16 08:35 Dose: 5 mg Glucagon (Glucagen Diagnostic Kit) 0 mg IM STAT PRN; Protocol PRN Reason: Hypoglycemia Protocol Hydralazine HCl (Apresoline) 25 mg PO TID [facility] Last Admin: 10/20/16 08:35 Dose: 25 mg Insulin Human Regular (Humulin R) 0 units SC ACHS [facility] PRN Reason: Protocol Last Admin: 10/20/16 06:41 Dose: 2 u Lisinopril (Zestril) 40 mg PO DAILY [facility] Last Admin: 10/20/16 08:35 Dose: 40 mg Metoprolol Tartrate (Lopressor) 50 mg PO Q12 [facility] Last Admin: 10/20/16 08:38 Dose: 50 mg Nicotine (Nicoderm Cq) 1 patch TD DAILY [facility] Last Admin: 10/20/16 08:36 Dose: 1 patch Spironolactone (Aldactone) 50 mg PO DAILY [facility] Last Admin: 10/20/16 08:35 Dose: 50 mg - Labs Labs: 10/20/16 05:40 10/19/16 05:00 PT 9.6 SECONDS (9.6-11.2) 10/18/16 16:27 INR 0.92 (0.92-1.08) 10/18/16 16:27 APTT 28.9 SECONDS (23.3-32.5) 10/18/16 16:27 - Constitutional Appears: Non-toxic, No Acute Distress - Eye Exam Eye Exam: EOMI, Normal appearance - ENT Exam ENT Exam: Mucous Membranes Moist - Respiratory Exam Respiratory Exam: NORMAL BREATHING PATTERN (with some crackles present in b/l bases, L>R). absent: Accessory Muscle Use, Rhonchi, Wheezes, Respiratory Distress - Cardiovascular Exam Cardiovascular Exam: REGULAR RHYTHM, +S1, +S2. absent: Gallop, Irregular Rhythm , Rubs, Murmur - GI/Abdominal Exam GI & Abdominal Exam: Soft, Normal Bowel Sounds. absent: Distended, Tenderness - Extremities Exam Extremities Exam: Pedal Edema (trace b/l). absent: Calf Tenderness Additional comments: venous stasis changes, pedal pulses 1+ b/l - Neurological Exam Neurological Exam: Alert, Awake - Skin Skin Exam: Dry, Warm Assessment and Plan - Assessment and Plan (Free Text) Assessment: The patient is a 66 y/o man w/ PMHx of DM, HTN, diastolic CHF, nephrotic syndrome, vascular disease, and Bipolar Disorder admitted for chest pain and uncontrolled HTN. 1. Chest Pain - resolved - troponins and EKG negative; ACS ruled out - Aspirin 81 mg PO daily 2. CHF Exacerbation - NYHA Class I, diastolic CHF - ECHO 08/16/2016: LVEF 45-50%, LV normal size, moderate concentric LV hypertrophy, borderline LV systolic function - pro-BNP 4330 on admission - lisinopril 40 mg PO daily - metoprolol tartrate 50 mg PO Q12h - lasix 40 mg IV BID - spironolactone 50 mg PO daily - daily weights - I/O's - CT chest: 15mm subpleural cavity in the superior segment of the RLL with discrete nodular densities along the wall, the largest lateral nodule measures 9mm; findings maybe related to nonspecific infection, however, neoplastic etiolgy is not entirely excluded. B/l pleural effusions, L>R. -short-term interval follow-up in 3 months recommended 3. HTN - uncontrolled, with proteinuria - amlodipine 10 mg PO daily - lisinopril 40 mg PO daily - lasix 40 mg IV BID - start hydralazine 25 mg PO TID - Clonidine 0.1mg BID started last night due to continued elevated BP - Nephrology consult appreciated - f/u complement levels, am cortisol, ferritin, hep b and C, TSH, vitamin D, isrrael, aldosterone, metanephrines, spep, upep - Renal US done 04/2016: no hemodynamically significant stenosis involving renal arteries; mildly echogenic renal cortices b/l - daily BMP to monitor K+ (pt is on ARON-I and spironolactone) 4. Left Calf Pain - improved - b/l LE duplex negative for DVT 5. Anemia of chronic disease - Hb improved from 8.8 to 9.8 today - follow up occult blood 6. NIDDMII, with hyperglycemia - HbA1c 08/16/16: 9.4% - hold metformin - accuchecks. hypoglycemia protocol - LDSS - Glipizide 5mg BID added for better glycemic control 7. Pseudohypocalcemia - baseline low albumin - monitor 8. DVT prophylaxis - lovenox 40 mg SC daily 9. Nicotine dependence - smokes 1/2 pack/day for 52 years - nicotine patch daily - smoking cessation counseled
[2016-10-20 10:17] LABS: BLOOD UREA NITROGEN 44 mg/dl (9-20); CALCIUM 8.3 mg/dL (8.4-10.2); CARBON DIOXIDE 21 mmol/L (22-30); CHLORIDE 112 mmol/L (98-107); GFR AFRICAN-AMERICAN > 60; GLUCOSE,RANDOM 216 mg/dL (75-110); POTASSIUM 4.8 MMOL/L (3.6-5.0); SODIUM 140 mmol/l (132-148)
--- NOTE | 2016-10-20 13:58 | CON ---
DATE: 10/20/2016 HISTORY OF PRESENT ILLNESS: The patient is a 66-year-old male with history of diabetes mellitus, hyp ertension, CHF with nephrotic syndrome, and bipolar disorder, who was referred for pulmonary evaluati on because of an abnormal CT scan and chest x-ray. He was admitted with chest pains and uncontrolled hypertension. FAMILY HISTORY: Nonrevealing. SOCIAL HISTORY: He smokes 1 pack of cigarettes daily. Denies alcohol use. Denies drug use, remberto ocampo is noncompliant to follow up with his physician visits. PHYSICAL EXAMINATION: GENERAL: The patient appears emaciated. VITAL SIGNS: Remarkable for blood pressure of 153/81, pulse 63, respiratory rate 18-20 per minute. He is afebrile. SKIN: Shows fair turgor. HEENT: Pupils equal and reactive to light and accommodation. Mouth shows fair hygiene. NECK: JVP flat. LUNGS: Poor aeration bilaterally, left-sided dullness worse than right side. Ribs are very prominen t. HEART: S1, S2. ABDOMEN: Soft, nontender, no organomegaly. EXTREMITIES: Shows some clubbing, otherwise unremarkable. CENTRAL NERVOUS SYSTEM: Exam is grossly intact. LABORATORY DATA: Remarkable for the WBC of 7.7, hemoglobin 9.8, platelet count of 192,000. Sodium 1 40, potassium 4.8, BUN 44, creatinine 1.2, serum glucose 218. PT 9.6, INR 0.92. CT scan of the ches t is remarkable for 50 mm subpleural cavity in the superior segment of the right lower lobe with disc rete nodular densities along the wall. The largest left lateral nodule measures 9 mm. Findings may be related to nonspecific infection; however, neoplastic etiology is not entirely excluded. CT scan in 3 months advised. Patient also has a large left and small right pleural effusion with compressive atelectasis. IMPRESSION: This patient is a chronic smoker with abnormal CT scan result. The findings probably se condary to inflammation. The patient has a history of nephrotic syndrome and cardiac disease. Howev er, malignancy has to be ruled out. The nodules are too small to be evaluated and the cavitary type lesion might just be secondary to fluid plus inflammation within the airways rather than true cavity. PLAN: Suggest thoracentesis via interventional radiology for diagnosis and analysis of a left pleura l effusion. The pulmonary nodules are too small to be evaluated at present, but should be followed u p with a repeat CT scan of the chest in 3 months to follow if all pleural fluid results are nonreveal ing. Will continue to follow with you. Continue therapy as ordered. Laron Raymond MD cc: [id number] TT: 10/20/2016 13:57:37 Confirmation # [id number] Dictation # [id number]
[2016-10-21 05:58] LABS: ABG ALLEN TEST YES; ARTERIAL BLOOD GAS HCO3 23.3 mmol/L (21-28); ARTERIAL BLOOD GAS O2 CAPACITY 22.1 mL/dL (16-24); ARTERIAL BLOOD GAS O2 CONTENT 21.2 ML/dL (15-23); ARTERIAL BLOOD GAS PO2 70 mm/Hg (80-100); ARTERIAL BLOOD HGB O2 SAT 92.7 % (95.0-98.0); CARBOXYHEMOGLOBIN 2.1 % (0.5-1.5); METHEMOGLOBIN 1.2 % (0.0-3.0)
--- NOTE | 2016-10-21 06:16 | CP.PCM.PCO ---
Assessment & Plan - Assessment and Plan (Free Text) Plan: Paged by nurse this AM for elevated BP 177/70, patient asymptomatic, no headaches, syncope, vision changes chest pain SOB PE: s1s1, left sided diminished BS, right sided CTA - given morning dose of hydralazine 25 mg PO early
[2016-10-21] MEDS: Insulin Regular 100 units/ml SC SCH ×4 (06:32→21:54)
[2016-10-21 07:54] LABS: CALCIUM 8.4 mg/dL (8.4-10.2); POTASSIUM 4.7 MMOL/L (3.6-5.0)
[2016-10-21] MEDS ORDERED: Lidocaine 1% Inj (20ml) ONE (09:18)
--- NOTE | 2016-10-21 09:18 | CP.PCM.PN ---
Subjective - Date & Time of Evaluation Date of Evaluation: 10/21/16 Time of Evaluation: 09:18 - Subjective Subjective: FEELS BETTER SXCHEDULED FOR THORACENTESES TODAY WILL CONTINUE RX ORDERED Objective - Vital Signs/Intake and Output Vital Signs (last 24 hours): Temp Pulse Resp BP Pulse Ox 97.9 F 67 20 179/78 H 96 10/21/16 08:08 10/21/16 08:34 10/21/16 08:08 10/21/16 08:34 10/21/16 08:08 - Medications Medications: Current Medications Acetaminophen (Tylenol 325mg Tab) 650 mg PO Q4 PRN PRN Reason: Headache Last Admin: 10/21/16 08:30 Dose: 650 mg Amlodipine Besylate (Norvasc) 10 mg PO DAILY [facility] Last Admin: 10/21/16 08:34 Dose: 10 mg Aspirin (Aspirin Chewable) 81 mg PO DAILY [facility] Last Admin: 10/20/16 08:36 Dose: 81 mg Clonidine HCl (Catapres) 0.1 mg PO BID [facility] Last Admin: 10/21/16 08:34 Dose: 0.1 mg Dextrose (Glutose 15) 0 gm PO ONCE PRN; Protocol PRN Reason: Hypoglycemia Protocol Dextrose (Dextrose 50% Inj) 0 ml IV STAT PRN; Protocol PRN Reason: Hyglycemia Protocol Enoxaparin Sodium (Lovenox) 40 mg SC DAILY [facility] PRN Reason: Protocol Last Admin: 10/20/16 08:43 Dose: Not Given Furosemide (Lasix) 40 mg PO BID [facility] Last Admin: 10/21/16 08:33 Dose: 40 mg Glipizide (Glucotrol) 5 mg PO ACBD [facility] Last Admin: 10/21/16 08:33 Dose: 5 mg Glucagon (Glucagen Diagnostic Kit) 0 mg IM STAT PRN; Protocol PRN Reason: Hypoglycemia Protocol Hydralazine HCl (Apresoline) 25 mg PO TID [facility] Last Admin: 10/21/16 08:33 Dose: Not Given Insulin Human Regular (Humulin R) 0 units SC ACHS [facility] PRN Reason: Protocol Last Admin: 10/21/16 06:32 Dose: 2 u Lisinopril (Zestril) 40 mg PO DAILY [facility] Last Admin: 10/21/16 08:32 Dose: 40 mg Metoprolol Tartrate (Lopressor) 50 mg PO Q12 [facility] Last Admin: 10/21/16 08:31 Dose: 50 mg Nicotine (Nicoderm Cq) 1 patch TD DAILY [facility] Last Admin: 10/21/16 08:32 Dose: 1 patch Spironolactone (Aldactone) 50 mg PO DAILY [facility] Last Admin: 10/21/16 08:35 Dose: 50 mg - Labs Labs: 10/20/16 05:40 10/21/16 04:40 PT 9.9 SECONDS (9.6-11.2) 10/21/16 04:40 INR 0.95 (0.92-1.08) 10/21/16 04:40 APTT 28.9 SECONDS (23.3-32.5) 10/18/16 16:27
--- NOTE | 2016-10-21 09:37 | PCM.SURG1 ---
Surgeon's Initial Post Op Note - Surgeon's Notes Surgeon: Antonio Rebolledo MD Field Sales Executive: None Type of Anesthesia: Local Pre-Operative Diagnosis: Left pleural effusion Operative Findings: US showed a large left effusion Post-Operative Diagnosis: Left pleural effusion Operation Performed: US guided left thoracentesis. Specimen/Specimens Removed: 1300 cc of clear fluid Estimated Blood Loss: EBL {In ML}: 0 Blood Products Given: N/A Drains Used: No Drains Post-Op Condition: Good Date of Surgery/Procedure: 10/21/16 Time of Surgery/Procedure: 09:35
--- NOTE | 2016-10-21 09:54 | CP.PCM.PN ---
Subjective - Date & Time of Evaluation Date of Evaluation: 10/21/16 Time of Evaluation: 07:05 - Subjective Subjective: The patient is a 66 y/o man w/ PMHx of DM, HTN, diastolic CHF, nephrotic syndrome, vascular disease, and Bipolar Disorder admitted for chest pain and uncontrolled HTN. The patient was seen this morning. There are no acute events overnight. The patient is not in acute distress. The patient is laying in bed. The patient complains of mild headache. The patient continues to complain of left leg pain. The patient is scheduled for thoracocentesis this morning. The patient denies headaches, dizziness, dyspnea, abdominal pain, nausea, vomiting, diarrhea , dysuria, and fevers. Objective - Vital Signs/Intake and Output Vital Signs (last 24 hours): Temp Pulse Resp BP Pulse Ox 98.2 F 62 18 161/68 H 100 10/21/16 09:20 10/21/16 09:40 10/21/16 09:40 10/21/16 09:20 10/21/16 09:40 - Medications Medications: Current Medications Acetaminophen (Tylenol 325mg Tab) 650 mg PO Q4 PRN PRN Reason: Headache Last Admin: 10/21/16 08:30 Dose: 650 mg Amlodipine Besylate (Norvasc) 10 mg PO DAILY [facility] Last Admin: 10/21/16 08:34 Dose: 10 mg Aspirin (Aspirin Chewable) 81 mg PO DAILY [facility] Last Admin: 10/20/16 08:36 Dose: 81 mg Clonidine HCl (Catapres) 0.1 mg PO BID [facility] Last Admin: 10/21/16 08:34 Dose: 0.1 mg Dextrose (Glutose 15) 0 gm PO ONCE PRN; Protocol PRN Reason: Hypoglycemia Protocol Dextrose (Dextrose 50% Inj) 0 ml IV STAT PRN; Protocol PRN Reason: Hyglycemia Protocol Enoxaparin Sodium (Lovenox) 40 mg SC DAILY [facility] PRN Reason: Protocol Last Admin: 10/20/16 08:43 Dose: Not Given Furosemide (Lasix) 40 mg PO BID [facility] Last Admin: 10/21/16 08:33 Dose: 40 mg Glipizide (Glucotrol) 5 mg PO ACBD [facility] Last Admin: 10/21/16 08:33 Dose: 5 mg Glucagon (Glucagen Diagnostic Kit) 0 mg IM STAT PRN; Protocol PRN Reason: Hypoglycemia Protocol Hydralazine HCl (Apresoline) 25 mg PO TID [facility] Last Admin: 10/21/16 08:33 Dose: Not Given Insulin Human Regular (Humulin R) 0 units SC [facility] PRN Reason: Protocol Last Admin: 10/21/16 06:32 Dose: 2 u Lisinopril (Zestril) 40 mg PO DAILY [facility] Last Admin: 10/21/16 08:32 Dose: 40 mg Metoprolol Tartrate (Lopressor) 50 mg PO Q12 [facility] Last Admin: 10/21/16 08:31 Dose: 50 mg Nicotine (Nicoderm Cq) 1 patch TD DAILY [facility] Last Admin: 10/21/16 08:32 Dose: 1 patch Spironolactone (Aldactone) 50 mg PO DAILY [facility] Last Admin: 10/21/16 08:35 Dose: 50 mg - Labs Labs: 10/20/16 05:40 10/21/16 04:40 PT 9.9 SECONDS (9.6-11.2) 10/21/16 04:40 INR 0.95 (0.92-1.08) 10/21/16 04:40 APTT 28.9 SECONDS (23.3-32.5) 10/18/16 16:27 - Constitutional Appears: No Acute Distress - Head Exam Head Exam: ATRAUMATIC, NORMOCEPHALIC - ENT Exam ENT Exam: Mucous Membranes Moist - Respiratory Exam Respiratory Exam: NORMAL BREATHING PATTERN. absent: Accessory Muscle Use, Chest Wall Tenderness, Wheezes, Respiratory Distress Additional comments: mild bibasilar crackles more so on the left than the right. - Cardiovascular Exam Cardiovascular Exam: REGULAR RHYTHM. absent: Tachycardia - GI/Abdominal Exam GI & Abdominal Exam: Soft, Normal Bowel Sounds. absent: Distended, Tenderness - Extremities Exam Additional comments: venous stasis changes, faint +1 pedal pulses bilaterally - Neurological Exam Neurological Exam: Alert, Awake, Oriented x3 - Skin Skin Exam: Dry, Intact, Warm Assessment and Plan - Assessment and Plan (Free Text) Assessment: The patient is a 66 y/o man w/ PMHx of DM, HTN, diastolic CHF, nephrotic syndrome, vascular disease, and Bipolar Disorder admitted for chest pain and uncontrolled HTN. Plan: 1. HTN - uncontrolled, with proteinuria - amlodipine 10 mg PO daily - lisinopril 40 mg PO daily - lasix 40 mg IV BID - hydralazine 25 mg PO TID - Clonidine 0.1mg BID - Nephrology consult appreciated - f/u am cortisol, hep b, isrrael, aldosterone, metanephrines, spep, upep - Renal US done 04/2016: no hemodynamically significant stenosis involving renal arteries; mildly echogenic renal cortices b/l - Complement, ferritin, TSH WNL; Hep C negative - Vit D <12.8 - K+: 4.7; daily BMP to monitor K+ (pt is on ARON-I and spironolactone) 2. CHF Exacerbation - NYHA Class I, diastolic CHF - ECHO 08/16/2016: LVEF 45-50%, LV normal size, moderate concentric LV hypertrophy, borderline LV systolic function - pro-BNP 4330 on admission - lisinopril 40 mg PO daily - metoprolol tartrate 50 mg PO Q12h - lasix 40 mg IV BID - spironolactone 50 mg PO daily - daily weights - I/O's - CT chest: 15mm subpleural cavity in the superior segment of the RLL with discrete nodular densities along the wall, the largest lateral nodule measures 9mm; findings maybe related to nonspecific infection, however, neoplastic etiolgy is not entirely excluded. B/l pleural effusions, L>R. - short-term interval follow-up in 3 months recommended - follow up thoracocentesis and fluid studies 3. Left Calf Pain - improved but still present - bilateral LE duplex negative for DVT 4. Anemia of chronic disease - Hb 9.8 - normocytic, normochromic - follow up occult blood 5. NIDDMII, with hyperglycemia - HbA1c 08/16/16: 9.4% - hold metformin - accuchecks. hypoglycemia protocol - LDSS - Glipizide 5mg PO BID 6. Pseudohypocalcemia - baseline low albumin - monitor 7. DVT prophylaxis - lovenox 40 mg SC daily 8. Nicotine dependence - smokes 1/2 pack/day for 52 years - nicotine patch daily - smoking cessation counseled
--- NOTE | 2016-10-21 10:06 | US ---
PROCEDURE: Date of procedure: 10/21/2016 Procedure: 1. Ultrasound-guided left thoracentesis, CPT 12250 Medications: 5 CC 1% Lidocaine HISTORY: Left pleural effusion, shortness of breath TECHNIQUE: Following informed consent ,the Patients' left chest was marked. Procedure time-out was called, and the patient was placed in the sitting position and limited ultrasound showed a large left effusion. The patient's left back was prepped and draped in the usual sterile fashion. After the skin was anesthetized with lidocaine, a drainage catheter was advanced under ultrasound guidance into the pleural space. Ultrasound-guided thoracentesis was performed. A total of 1300 cubic centimeters of straw-colored fluid removed without complication. A Xeroform dressing was applied. IMPRESSION: Ultrasound guided left thoracentesis. There were no immediate complications.
[2016-10-21 10:10] LABS: BODY FLUID TYPE PLEURAL/THORACENTESI
--- NOTE | 2016-10-21 10:55 | CARD ---
APPROVED REPORT EKG Measurement Heart [id number] [place] 220P2 [id number] <Conclusion> Sinus rhythm with 1st degree AV block Otherwise normal ECG
[2016-10-21 11:19] LABS: LDH,BODY FLUID 223 IU (NONE ESTABLISHED)
[2016-10-21 13:58] LABS: BF GROSS APPEARANCE CLEAR (CLEAR)
--- NOTE | 2016-10-21 14:06 | RAD ---
PROCEDURE: CHEST RADIOGRAPH, 1 VIEW portable study 09:45. HISTORY: Status post left thoracentesis new line Relevant interventional procedure(s): October 21, 2016. Left thoracentesis with recovery of 1.3 L of fluid. COMPARISON: 10/18/2016. FINDINGS: LUNGS: Improved aeration left lower lobe. New right lower lobe infiltrate. PLEURA: No significant pneumothorax status post recent thoracentesis. CARDIOVASCULAR: Normal. OSSEOUS STRUCTURES: No significant abnormalities. VISUALIZED UPPER ABDOMEN: Normal. OTHER FINDINGS: None. IMPRESSION: Status post left thoracentesis, no pneumothorax. New right lower lobe infiltrate.
[2016-10-21 14:42] LABS: BODY FLUID TOTAL COUNT 100 (0-0)
[2016-10-21 16:31] LABS: CORTISOL AM 12.4 ug/dL (4.46-22.7)
--- NOTE | 2016-10-21 18:57 | CARD ---
APPROVED REPORT EKG Measurement Heart [id number] [place] 216P5 [id number] <Conclusion> Sinus rhythm with 1st degree AV block Otherwise normal ECG
--- NOTE | 2016-10-21 20:01 | CP.PCM.PN ---
Subjective - Date & Time of Evaluation Date of Evaluation: 10/21/16 Time of Evaluation: 20:00 - Subjective Subjective: pt seen and examined, follow up consult is dictated #[id number] s/p thoracentesis Objective - Vital Signs/Intake and Output Vital Signs (last 24 hours): Temp Pulse Resp BP Pulse Ox 98.4 F 64 18 174/72 H 99 10/21/16 19:38 10/21/16 19:38 10/21/16 19:38 10/21/16 19:38 10/21/16 19:38 - Medications Medications: Current Medications Acetaminophen (Tylenol 325mg Tab) 650 mg PO Q4 PRN PRN Reason: Headache Last Admin: 10/21/16 08:30 Dose: 650 mg Amlodipine Besylate (Norvasc) 10 mg PO DAILY [facility] Last Admin: 10/21/16 08:34 Dose: 10 mg Aspirin (Aspirin Chewable) 81 mg PO DAILY [facility] Last Admin: 10/21/16 12:57 Dose: Not Given Clonidine HCl (Catapres) 0.1 mg PO BID [facility] Last Admin: 10/21/16 16:54 Dose: 0.1 mg Dextrose (Glutose 15) 0 gm PO ONCE PRN; Protocol PRN Reason: Hypoglycemia Protocol Dextrose (Dextrose 50% Inj) 0 ml IV STAT PRN; Protocol PRN Reason: Hyglycemia Protocol Enoxaparin Sodium (Lovenox) 40 mg SC DAILY [facility] PRN Reason: Protocol Last Admin: 10/20/16 08:43 Dose: Not Given Furosemide (Lasix) 40 mg PO BID [facility] Last Admin: 10/21/16 16:56 Dose: 40 mg Glipizide (Glucotrol) 5 mg PO ACBD [facility] Last Admin: 10/21/16 16:54 Dose: 5 mg Glucagon (Glucagen Diagnostic Kit) 0 mg IM STAT PRN; Protocol PRN Reason: Hypoglycemia Protocol Hydralazine HCl (Apresoline) 25 mg PO TID [facility] Last Admin: 10/21/16 16:56 Dose: 25 mg Insulin Human Regular (Humulin R) 0 units SC ACHS [facility] PRN Reason: Protocol Last Admin: 10/21/16 16:55 Dose: Not Given Lisinopril (Zestril) 40 mg PO DAILY [facility] Last Admin: 10/21/16 08:32 Dose: 40 mg Metoprolol Tartrate (Lopressor) 50 mg PO Q12 [facility] Last Admin: 10/21/16 08:31 Dose: 50 mg Nicotine (Nicoderm Cq) 1 patch TD DAILY [facility] Last Admin: 10/21/16 08:32 Dose: 1 patch Spironolactone (Aldactone) 50 mg PO DAILY [facility] Last Admin: 10/21/16 08:35 Dose: 50 mg - Labs Labs: 10/20/16 05:40 10/21/16 04:40 PT 9.9 SECONDS (9.6-11.2) 10/21/16 04:40 INR 0.95 (0.92-1.08) 10/21/16 04:40 APTT 28.9 SECONDS (23.3-32.5) 10/18/16 16:27
--- NOTE | 2016-10-22 00:12 | PN ---
DATE: 10/21/2016 LOCATION: The patient is located in room 401, bed 1. REQUESTED BY: Dr. Kemi Kelley. REASON FOR RENAL CONSULTATION: Increased BUN and creatinine, uncontrolled hypertension. HISTORY OF PRESENT ILLNESS: This is a 66-year-old elderly male with multiple medical proble ms including hypertension, diabetes, CHF and cellulitis of the legs, questionable Angioplasty of the lower extremities in the past, who was admitted with bilateral lower extremity swelling and the patie nt was found to have pleural effusion, bilateral, left more than the right. Underwent thoracentesis by interventional radiology and drained about 1.3 liters of fluid. The patient does complain of slig ht pain in the left scapular region. No chest pain, no palpitation, no nausea, vomiting. PHYSICAL EXAMINATION: VITAL SIGNS: As follows: Blood pressure 174/72, pulse 64, respiration 18, temperature 98.4, saturat ion 99%. Height 5 feet 5 inches and weight is 135 pounds. GENERAL: The patient is a 66-year-old elderly male, moderately built, moderately nourished, not in any distress. HEENT: Pupils normal, reactive to light and accommodation. Conjunctivae pink. Sclerae anicteric. Tongue is moist. NECK: Trachea midline. LUNGS: Symmetric on both sides. Bilateral breath sounds present. Occasional basal crackles present . CARDIOVASCULAR: [place] in the fifth intercostal space midclavicular line. S1 and S2 audible. No murm ur, no gallop. ABDOMEN: Normal in appearance, soft, tympanic. No guarding, no rigidity. No hepatosplenomegaly. CENTRAL NERVOUS SYSTEM: The patient is alert, awake, oriented x 2-3. Sensory and motor system is wi thin normal limits. EXTREMITIES: No cyanosis, no clubbing. The patient has 1+ edema in both lower extremities. CURRENT MEDICATIONS: Include as follows: On Aldactone 50 mg p.o. daily, hydralazine 25 mg p.o. t.i. d., clonidine 0.1 mg p.o. b.i.d., Imuran oral for sliding scale, Lasix 40 mg p.o. b.i.d., Lopressor 5 0 mg p.o. q. 12 hours, Lovenox 40 mg subQ daily, Nicoderm patch transdermal daily and Norvasc 10 mg d aily, Tylenol and Zestril 40 mg p.o. daily. LABORATORY DATA: Include as follows: As of 10/21/2016, PT is 9.9, INR 0.95. Sodium 140, potassium 4 .7, chloride 111, CO2 23, BUN 45, creatinine 1.5, glucose is 194, calcium is 8.4. His pleural fluid is clear and pH 8, WBC is 333 and RBC is 18 and neutrophils 58 and lymph is 39, monos 4 and glucose i s 184 and total protein less than 2 and LDH is 223 and fluid is pale yellow, which is consistent in t he pleural fluid analysis with transudate and the pleural fluid Gram stain is pending. SUMMARY: The patient is a 66-year-old elderly male with a history of hypertension, diabetes , congestive heart failure, was admitted with bilateral lower extremity swelling and shortness of consuelo ath and with increased BUN and creatinine and bilateral pleural effusion. ASSESSMENT AND PLAN: 1. Chronic kidney disease stage III, rule out diabetic nephropathy versus rule out hypertensive neph rosclerosis versus chronic glomerulonephritis. 2. Uncontrolled hypertension. The patient is on multiple medications. Continue Zestril 40 mg daily , Norvasc 10 mg daily and Lopressor 50 mg p.o. q. 12 hours, Lasix 40 mg p.o. b.i.d., clonidine 0.1 mg p.o. b.i.d. and increase hydralazine from 25 mg t.i.d. to 50 mg t.i.d. and spironolactone 50 mg p.o. daily and also low sodium diet. 3. Bilateral pleural effusion, status post thoracentesis on the left side, drained about 1.3 liters. Continue Lasix 40 mg p.o. b.i.d. 4. Diabetes. Sugars are under control. Will follow with you. If not done, consider to check 24-hour urine for catecholamines and metanephrines. Thank you for allowing me to participate in your patient's care. Blas Trimble MD cc: [id number] TT: 10/22/2016 00:11:32 Confirmation # [id number] Dictation # [id number] mn
[2016-10-22 07:19] LABS: CALCIUM 7.8 mg/dL (8.4-10.2); POTASSIUM 4.8 MMOL/L (3.6-5.0)
[2016-10-22] MEDS: Insulin Regular 100 units/ml SC SCH ×4 (08:44→22:08)
--- NOTE | 2016-10-22 09:27 | CP.PCM.PN ---
Subjective - Date & Time of Evaluation Date of Evaluation: 10/22/16 Time of Evaluation: 07:50 - Subjective Subjective: The patient is a 66 y/o man w/ PMHx of DM, HTN, diastolic CHF, nephrotic syndrome, vascular disease, and Bipolar Disorder admitted for chest pain and uncontrolled HTN. The patient was seen this morning. There are no acute events overnight. The patient is not in acute distress. The patient is laying in bed. The patient continues to complain of the same left leg pain. The patient tolerated the thoracentesis yesterday. The patient reports mild chest pain with respiration. The patient denies headaches, dizziness, dyspnea, abdominal pain, nausea, vomiting, diarrhea, dysuria, and fevers. Objective - Vital Signs/Intake and Output Vital Signs (last 24 hours): Temp Pulse Resp BP Pulse Ox 97.8 F 65 20 173/74 H 98 10/22/16 09:00 10/22/16 09:00 10/22/16 09:00 10/22/16 09:00 10/22/16 09:00 Intake and Output: 10/22/16 10/22/16 06:59 18:59 Intake Total 240 Balance 240 - Medications Medications: Current Medications Acetaminophen (Tylenol 325mg Tab) 650 mg PO Q4 PRN PRN Reason: Headache Last Admin: 10/21/16 08:30 Dose: 650 mg Amlodipine Besylate (Norvasc) 10 mg PO DAILY [facility] Last Admin: 10/22/16 08:45 Dose: 10 mg Aspirin (Aspirin Chewable) 81 mg PO DAILY [facility] Last Admin: 10/22/16 08:43 Dose: 81 mg Clonidine HCl (Catapres) 0.1 mg PO BID [facility] Last Admin: 10/22/16 08:43 Dose: 0.1 mg Dextrose (Glutose 15) 0 gm PO ONCE PRN; Protocol PRN Reason: Hypoglycemia Protocol Dextrose (Dextrose 50% Inj) 0 ml IV STAT PRN; Protocol PRN Reason: Hyglycemia Protocol Enoxaparin Sodium (Lovenox) 40 mg SC DAILY [facility] PRN Reason: Protocol Last Admin: 10/20/16 08:43 Dose: Not Given Furosemide (Lasix) 40 mg PO BID [facility] Last Admin: 10/22/16 08:45 Dose: 40 mg Glipizide (Glucotrol) 5 mg PO ACBD [facility] Last Admin: 10/22/16 08:43 Dose: 5 mg Glucagon (Glucagen Diagnostic Kit) 0 mg IM STAT PRN; Protocol PRN Reason: Hypoglycemia Protocol Hydralazine HCl (Apresoline) 50 mg PO TID [facility] Last Admin: 10/22/16 08:43 Dose: 50 mg Insulin Human Regular (Humulin R) 0 units SC ACHS [facility] PRN Reason: Protocol Last Admin: 10/22/16 08:44 Dose: 2 u Lisinopril (Zestril) 40 mg PO DAILY [facility] Last Admin: 10/22/16 08:45 Dose: 40 mg Metoprolol Tartrate (Lopressor) 50 mg PO Q12 [facility] Last Admin: 10/22/16 08:45 Dose: 50 mg Nicotine (Nicoderm Cq) 1 patch TD DAILY [facility] Last Admin: 10/22/16 08:45 Dose: 1 patch Spironolactone (Aldactone) 50 mg PO DAILY [facility] Last Admin: 10/22/16 08:43 Dose: 50 mg - Labs Labs: 10/20/16 05:40 10/22/16 04:30 PT 9.9 SECONDS (9.6-11.2) 10/21/16 04:40 INR 0.95 (0.92-1.08) 10/21/16 04:40 APTT 28.9 SECONDS (23.3-32.5) 10/18/16 16:27 - Constitutional Appears: No Acute Distress - Head Exam Head Exam: ATRAUMATIC, NORMOCEPHALIC - ENT Exam ENT Exam: Mucous Membranes Moist - Respiratory Exam Respiratory Exam: absent: Accessory Muscle Use, Chest Wall Tenderness, Decreased Breath Sounds, Prolonged Expiratory Phase, Rales, Rhonchi, Wheezes, Respiratory Distress, Stridor Additional comments: mild bibasilar crackles, improved compared to yesterday - Cardiovascular Exam Cardiovascular Exam: REGULAR RHYTHM. absent: Tachycardia - GI/Abdominal Exam GI & Abdominal Exam: Soft, Normal Bowel Sounds. absent: Distended, Tenderness - Extremities Exam Extremities Exam: Pedal Edema. absent: Calf Tenderness, Tenderness Additional comments: venous stasis changes, faint +1 pedal pulses bilaterally, trace pedal edema - Neurological Exam Neurological Exam: Alert, Awake, Oriented x3 - Skin Skin Exam: Dry, Intact, Warm Assessment and Plan - Assessment and Plan (Free Text) Assessment: The patient is a 66 y/o man w/ PMHx of DM, HTN, diastolic CHF, nephrotic syndrome, vascular disease, and Bipolar Disorder admitted for chest pain and uncontrolled HTN. Plan: 1. HTN - uncontrolled, with proteinuria - amlodipine 10 mg PO daily - lisinopril 40 mg PO daily - lasix 40 mg IV BID - hydralazine 50 mg PO TID - Clonidine 0.1mg BID - Nephrology consult, recommendations appreciated - AM cortisol: 12.4 - Hep B: HBsAg negative, HBsAb positive - Renal US done 04/2016: no hemodynamically significant stenosis involving renal arteries; mildly echogenic renal cortices b/l - Complement, ferritin, TSH WNL; Hep C negative - Vit D <12.8 - K+: 4.7; daily BMP to monitor K+ (pt is on ARON-I and spironolactone) - Follow up ELIJAH, aldosterone, metanephrines, spep, upep - collecting 24 hour urine 2. CHF Exacerbation - NYHA Class I, diastolic CHF - ECHO 08/16/2016: LVEF 45-50%, LV normal size, moderate concentric LV hypertrophy, borderline LV systolic function - pro-BNP 4330 on admission - lisinopril 40 mg PO daily - metoprolol tartrate 50 mg PO Q12h - lasix 40 mg IV BID - spironolactone 50 mg PO daily - daily weights - I/O's - CT chest: 15mm subpleural cavity in the superior segment of the RLL with discrete nodular densities along the wall, the largest lateral nodule measures 9mm; findings maybe related to nonspecific infection, however, neoplastic etiolgy is not entirely excluded. B/l pleural effusions, L>R. - short-term interval follow-up in 3 months recommended - follow up thoracocentesis and fluid studies 3. Left Calf Pain - improved but still present - bilateral LE duplex negative for DVT 4. Anemia of chronic disease - Hb 9.8 - normocytic, normochromic - follow up occult blood 5. NIDDMII, with hyperglycemia - HbA1c 08/16/16: 9.4% - hold metformin - accuchecks. hypoglycemia protocol - LDSS - Glipizide 5mg PO BID 6. Pseudohypocalcemia - baseline low albumin - monitor 7. DVT prophylaxis - lovenox 40 mg SC daily 8. Nicotine dependence - smokes 1/2 pack/day for 52 years - nicotine patch daily - smoking cessation counseled
--- NOTE | 2016-10-22 13:35 | RAD ---
HISTORY: s/p thoracocentesis COMPARISON: Comparison is made to 10/21/2016 TECHNIQUE: Chest PA and lateral FINDINGS: LUNGS: Hyperinflation of the lungs is again noted. No evidence of new infiltrate or consolidation in the lungs PLEURA: Left pleural effusion appears larger compared to the previous exam. Blunting of the right costophrenic angle. CARDIOVASCULAR: Normal. OSSEOUS STRUCTURES: No significant abnormalities. VISUALIZED UPPER ABDOMEN: Normal. OTHER FINDINGS: None. IMPRESSION: No evidence of new infiltrate or consolidation in the lungs. Bilateral pleural effusions larger on the left.
--- NOTE | 2016-10-22 19:03 | CP.PCM.PN ---
Subjective - Date & Time of Evaluation Date of Evaluation: 10/22/16 Time of Evaluation: 19:03 - Subjective Subjective: pt seen and examined, follow up consult is dictated #[id number] Objective - Vital Signs/Intake and Output Vital Signs (last 24 hours): Temp Pulse Resp BP Pulse Ox 97.5 F L 63 18 153/64 H 98 10/22/16 17:00 10/22/16 17:08 10/22/16 17:00 10/22/16 17:09 10/22/16 17:00 Intake and Output: 10/22/16 10/23/16 18:59 06:59 Intake Total 480 Balance 480 - Medications Medications: Current Medications Acetaminophen (Tylenol 325mg Tab) 650 mg PO Q4 PRN PRN Reason: Pain, moderate (4-7) Amlodipine Besylate (Norvasc) 10 mg PO DAILY [facility] Last Admin: 10/22/16 08:45 Dose: 10 mg Aspirin (Aspirin Chewable) 81 mg PO DAILY [facility] Last Admin: 10/22/16 08:43 Dose: 81 mg Clonidine HCl (Catapres) 0.1 mg PO BID [facility] Last Admin: 10/22/16 17:08 Dose: 0.1 mg Dextrose (Glutose 15) 0 gm PO ONCE PRN; Protocol PRN Reason: Hypoglycemia Protocol Dextrose (Dextrose 50% Inj) 0 ml IV STAT PRN; Protocol PRN Reason: Hyglycemia Protocol Enoxaparin Sodium (Lovenox) 40 mg SC DAILY [facility] PRN Reason: Protocol Last Admin: 10/20/16 08:43 Dose: Not Given Furosemide (Lasix) 40 mg PO BID [facility] Last Admin: 10/22/16 17:09 Dose: 40 mg Glipizide (Glucotrol) 5 mg PO ACBD [facility] Last Admin: 10/22/16 17:08 Dose: 5 mg Glucagon (Glucagen Diagnostic Kit) 0 mg IM STAT PRN; Protocol PRN Reason: Hypoglycemia Protocol Hydralazine HCl (Apresoline) 50 mg PO TID [facility] Last Admin: 10/22/16 17:07 Dose: 50 mg Insulin Human Regular (Humulin R) 0 units SC ACHS [facility] PRN Reason: Protocol Last Admin: 10/22/16 17:08 Dose: Not Given Lisinopril (Zestril) 40 mg PO DAILY [facility] Last Admin: 10/22/16 08:45 Dose: 40 mg Metoprolol Tartrate (Lopressor) 50 mg PO Q12 [facility] Last Admin: 10/22/16 08:45 Dose: 50 mg Nicotine (Nicoderm Cq) 1 patch TD DAILY [facility] Last Admin: 10/22/16 08:45 Dose: 1 patch Spironolactone (Aldactone) 50 mg PO DAILY [facility] Last Admin: 10/22/16 08:43 Dose: 50 mg - Labs Labs: 10/20/16 05:40 10/22/16 04:30 PT 9.9 SECONDS (9.6-11.2) 10/21/16 04:40 INR 0.95 (0.92-1.08) 10/21/16 04:40 APTT 28.9 SECONDS (23.3-32.5) 10/18/16 16:27
--- NOTE | 2016-10-23 00:08 | PN ---
DATE: 10/22/2016 FOLLOWUP RENAL CONSULTATION LOCATION: The patient is located in room 401, bed 1. REQUESTED BY: Dr. Elizabeth Kelley. REASON FOR RENAL CONSULTATION: Proteinuria, chronic kidney disease, uncontrolled hypertension. HISTORY OF PRESENT ILLNESS: The patient is a 66-year-old elderly male with a history of longstanding hypertension, diabetes, CHF, and proteinuria, chronic kidney disease, peripheral vascular disease, who was admitted with chief complaints of uncontrolled hypertension and dizziness and some blurred vision on the left side. The patient was noncompliant with medication for the last 2 months. The patient is not in acute distress, status post thoracentesis on the left side yesterday and drained about 1.3 liters of straw-colored fluid. The patient is not in acute distress and denies any chest pain, palpitations. Denies any fever or cough. No abdominal pain, no nausea, vomiting, diarrhea. PHYSICAL EXAMINATION: VITAL SIGNS: As follows: Blood pressure 158/67, prior to this evening blood pressure 153/64, pulse 62, respiration 18, temperature 98.2, height 5 feet 5 inches and weight is 139 pounds. GENERAL: The patient is a 66-year-old elderly male, moderately built, well nourished, not in distress. HEENT: Pupils normal, reactive to light and accommodation. Conjunctivae pink. Sclerae anicteric. Tongue is moist. NECK: Trachea is midline. LUNGS: Symmetric on both sides. Bilateral breath sounds present. Occasional basal crackles present. CARDIOVASCULAR: [place] in the fifth intercostal space midclavicular line. S1 and S2 audible. No murmur or gallop. ABDOMEN: Normal in appearance, soft, tympanic. No guarding, no rigidity. No hepatosplenomegaly. CENTRAL NERVOUS SYSTEM: The patient is alert, awake, oriented x 3, nonfocal on examination. Cranial nerves II-XII grossly intact. Sensory and motor system is within normal limits. EXTREMITIES: No cyanosis, no clubbing. The patient has 1+ edema in both lower extremities. CURRENT MEDICATIONS: Include as follows: Aldactone 50 mg p.o. daily, hydralazine 50 mg p.o. t.i.d., aspirin 81 mg p.o. daily, Catapres 0.1 mg p.o. b.i.d., glipizide 5 mg , Humulin R for sliding scale, Lasix 40 mg p.o. b.i.d., Lopressor 50 mg p.o. q. 12 hours, Lovenox 40 mg subQ daily, Nicoderm patch, Norvasc 10 mg daily, Zestril 40 mg p.o. daily. LABORATORY DATA: Include as follows: As of 10/22/2016, sodium 138, potassium 4.8, chloride 110, CO2 of 22, BUN 51, creatinine 1.6, glucose 141, calcium 7.8. SUMMARY: The patient is a 66-year-old elderly male with a history of hypertension, diabetes, congestive heart failure, questionable peripheral vascular disease, proteinuria, chronic kidney disease. 1. Uncontrolled hypertension. Plan: Continue current medication, Norvasc and metoprolol, Zestril, hydralazine, Lasix and spironolactone and titrate clonidine as needed and increase to 0.1 p.o. b.i.d. to 3 times a day and consider to decrease Lasix to 40 mg daily from tomorrow. 2. Diabetes. 3. Chronic kidney disease stage III, rule out diabetic nephropathy versus hypertensive nephrosclerosis. His ultrasound kidneys from the previous admission was consistent with normal signs about 11 cm, doubt hypertensive nephrosclerosis at this time. 4. Proteinuria, rule out diabetic nephropathy versus chronic glomerulonephritis. Check 24-hour urine protein, creatinine clearance. His serological workup _ and complement levels are within normal limits. We will follow with you. Thank you for allowing me to participate in your patient's care and discuss with resident. Blas Trimble MD cc: [id number] TT: 10/23/2016 00:07:28 Confirmation # [id number] Dictation # [id number] spenser PATTERSON
[2016-10-23] MEDS: Insulin Regular 100 units/ml SC SCH ×2 (06:48→13:46)
[2016-10-23 06:52] LABS: HEMATOCRIT 27.6 % (35.0-51.0); MEAN CELL VOLUME 92.2 fl (80.0-94.0); MEAN CORPUSCULAR HEMOGLOBIN 31.4 pg (27.0-31.0); RED CELL DISTRIBUTION WIDTH 14.8 % (11.5-14.5); WHITE BLOOD COUNT 7.4 K/uL (4.8-10.8)
[2016-10-23 07:02] LABS: CALCIUM 8.1 mg/dL (8.4-10.2); POTASSIUM 5.1 MMOL/L (3.6-5.0)
[2016-10-23 08:11] VITALS: RESP 20
[2016-10-23] MEDS: Enoxaparin 40 mg Syringe SC SCH ×2 (08:59→09:06)
--- NOTE | 2016-10-23 10:35 | CP.PCM.PN ---
Subjective - Date & Time of Evaluation Date of Evaluation: 10/23/16 Time of Evaluation: 10:36 - Subjective Subjective: S/P THORACENTESES FOR PLEURAL EFFUSIUON FEELS BETTER Objective - Vital Signs/Intake and Output Vital Signs (last 24 hours): Temp Pulse Resp BP Pulse Ox 98.0 F 63 20 170/70 H 97 10/23/16 08:11 10/23/16 08:59 10/23/16 08:11 10/23/16 08:59 10/23/16 08:11 - Medications Medications: Current Medications Acetaminophen (Tylenol 325mg Tab) 650 mg PO Q4 PRN PRN Reason: Pain, moderate (4-7) Last Admin: 10/23/16 08:55 Dose: 650 mg Amlodipine Besylate (Norvasc) 10 mg PO DAILY [facility] Last Admin: 10/23/16 08:57 Dose: 10 mg Aspirin (Aspirin Chewable) 81 mg PO DAILY [facility] Last Admin: 10/23/16 08:58 Dose: 81 mg Clonidine HCl (Catapres) 0.1 mg PO BID [facility] Last Admin: 10/23/16 08:57 Dose: 0.1 mg Dextrose (Glutose 15) 0 gm PO ONCE PRN; Protocol PRN Reason: Hypoglycemia Protocol Dextrose (Dextrose 50% Inj) 0 ml IV STAT PRN; Protocol PRN Reason: Hyglycemia Protocol Enoxaparin Sodium (Lovenox) 40 mg SC DAILY [facility] PRN Reason: Protocol Last Admin: 10/23/16 09:06 Dose: Not Given Furosemide (Lasix) 40 mg PO DAILY [facility] Glipizide (Glucotrol) 5 mg PO ACBD [facility] Last Admin: 10/23/16 08:56 Dose: 5 mg Glucagon (Glucagen Diagnostic Kit) 0 mg IM STAT PRN; Protocol PRN Reason: Hypoglycemia Protocol Hydralazine HCl (Apresoline) 50 mg PO TID [facility] Last Admin: 10/23/16 08:57 Dose: 50 mg Insulin Human Regular (Humulin R) 0 units SC ACHS [facility] PRN Reason: Protocol Last Admin: 10/23/16 06:48 Dose: 1 u Lisinopril (Zestril) 40 mg PO DAILY [facility] Last Admin: 10/23/16 08:59 Dose: 40 mg Metoprolol Tartrate (Lopressor) 50 mg PO Q12 [facility] Last Admin: 10/23/16 08:56 Dose: 50 mg Nicotine (Nicoderm Cq) 1 patch TD DAILY [facility] Last Admin: 10/23/16 08:59 Dose: 1 patch Spironolactone (Aldactone) 50 mg PO DAILY [facility] Last Admin: 10/23/16 08:58 Dose: 50 mg - Labs Labs: 10/23/16 05:30 10/23/16 05:30 PT 9.9 SECONDS (9.6-11.2) 10/21/16 04:40 INR 0.95 (0.92-1.08) 10/21/16 04:40 APTT 28.9 SECONDS (23.3-32.5) 10/18/16 16:27 - Constitutional Appears: No Acute Distress - Head Exam Head Exam: ATRAUMATIC, NORMAL INSPECTION, NORMOCEPHALIC - Eye Exam Eye Exam: EOMI, Normal appearance, PERRL Pupil Exam: NORMAL ACCOMODATION, PERRL - ENT Exam ENT Exam: Mucous Membranes Moist, Normal Exam - Neck Exam Neck Exam: Full ROM, Normal Inspection. absent: Lymphadenopathy - Respiratory Exam Respiratory Exam: Decreased Breath Sounds, NORMAL BREATHING PATTERN - Cardiovascular Exam Cardiovascular Exam: REGULAR RHYTHM, +S1, +S2. absent: Murmur - GI/Abdominal Exam GI & Abdominal Exam: Soft, Normal Bowel Sounds. absent: Tenderness - Rectal Exam Rectal Exam: NORMAL INSPECTION - Extremities Exam Extremities Exam: Full ROM, Normal Capillary Refill, Normal Inspection. absent : Joint Swelling, Pedal Edema - Back Exam Back Exam: NORMAL INSPECTION - Neurological Exam Neurological Exam: Alert, Awake, CN II-XII Intact, Normal Gait, Oriented x3 - Psychiatric Exam Psychiatric exam: Normal Affect, Normal Mood - Skin Skin Exam: Dry, Intact, Normal Color, Warm Assessment and Plan - Assessment and Plan (Free Text) Assessment: EXUDATIVE PLEURAL EFFUSION PULMONARY NODULES Plan: CONTINUE SAME RX
[2016-10-23 12:18] VITALS: TEMP 97.9; O2SAT 99
[2016-10-23 16:17] VITALS: BP 136/56; PULSE 64
--- NOTE | 2016-10-23 17:30 | CP.PCM.DIS ---
Provider - Provider Date of Admission: 10/18/16 18:38 Attending physician: Elizabeth Kelley MD Time Spent in preparation of Discharge (in minutes): 30 Diagnosis - Discharge Diagnosis (1) Hypertensive emergency Status: Acute (2) CHF exacerbation Status: Acute Hospital Course - Lab Results Lab Results: Micro Results 10/21/16 10:08 Pleural Fluid Gram Stain - Final 10/21/16 10:08 Pleural Fluid Body Fluid Culture - Preliminary NO GROWTH AFTER 2 DAYS 10/21/16 10:08 Pleural Fluid Anaerobic Culture - Final NO ANAEROBES ISOLATED. Most Recent Lab Values WBC 7.4 K/uL (4.8-10.8) 10/23/16 05:30 RBC 2.99 Mil/uL (4.40-5.90) L 10/23/16 05:30 Hgb 9.4 g/dL (12.0-18.0) L 10/23/16 05:30 Hct 27.6 % (35.0-51.0) L 10/23/16 05:30 MCV 92.2 fl (80.0-94.0) 10/23/16 05:30 MCH 31.4 pg (27.0-31.0) H 10/23/16 05:30 MCHC 34.0 g/dL (33.0-37.0) 10/23/16 05:30 RDW 14.8 % (11.5-14.5) H 10/23/16 05:30 Plt Count 179 K/uL (130-400) 10/23/16 05:30 MPV 10.5 fl (7.2-11.7) 10/18/16 16:27 Neut % (Auto) 63.5 % (50.0-75.0) 10/18/16 16:27 Lymph % (Auto) 27.6 % (20.0-40.0) 10/18/16 16:27 [place] % (Auto) 5.1 % (0.0-10.0) 10/18/16 16:27 Eos % (Auto) 2.3 % (0.0-4.0) 10/18/16 16:27 Baso % (Auto) 1.5 % (0.0-2.0) 10/18/16 16:27 Neut # 4.5 K/uL (1.8-7.0) 10/18/16 16:27 Lymph # 1.9 K/uL (1.0-4.3) 10/18/16 16:27 [place] # 0.4 K/uL (0.0-0.8) 10/18/16 16:27 Eos # 0.2 K/uL (0.0-0.7) 10/18/16 16:27 Baso # 0.1 K/uL (0.0-0.2) 10/18/16 16:27 PT 9.9 SECONDS (9.6-11.2) 10/21/16 04:40 INR 0.95 (0.92-1.08) 10/21/16 04:40 APTT 28.9 SECONDS (23.3-32.5) 10/18/16 16:27 pCO2 36 mm/Hg (35-45) 10/21/16 05:35 pO2 70 mm/Hg (80-100) L 10/21/16 05:35 HCO3 23.3 mmol/L (21-28) 10/21/16 05:35 ABG pH 7.40 (7.35-7.45) 10/21/16 05:35 ABG Total CO2 23.4 mmol/L (22-28) 10/21/16 05:35 ABG O2 Saturation 95.9 % (95-98) 10/21/16 05:35 ABG O2 Content 21.2 ML/dL (15-23) 10/21/16 05:35 ABG Base Excess -1.9 mmol/L (-2.0-3.0) 10/21/16 05:35 ABG Hemoglobin 16.3 g/dL (11.7-17.4) 10/21/16 05:35 ABG Carboxyhemoglobin 2.1 % (0.5-1.5) H 10/21/16 05:35 POC ABG HHb (Measured) 4.0 % (0.0-5.0) 10/21/16 05:35 ABG Methemoglobin 1.2 % (0.0-3.0) 10/21/16 05:35 ABG O2 Capacity 22.1 mL/dL (16-24) 10/21/16 05:35 Andry Test Yes 10/21/16 05:35 A-a O2 Difference 35.0 mm/Hg 10/21/16 05:35 Hgb O2 Saturation 92.7 % (95.0-98.0) L 10/21/16 05:35 FiO2 21.0 % 10/21/16 05:35 Sodium 139 mmol/l (132-148) 10/23/16 05:30 Potassium 5.1 MMOL/L (3.6-5.0) H 10/23/16 05:30 Chloride 110 mmol/L (98-107) H 10/23/16 05:30 Carbon Dioxide 24 mmol/L (22-30) 10/23/16 05:30 Anion Gap 10 (10-20) 10/23/16 05:30 BUN 55 mg/dl (9-20) H 10/23/16 05:30 Creatinine 1.7 mg/dL (0.8-1.5) H 10/23/16 05:30 Est GFR ( Amer) 49 10/23/16 05:30 Est GFR (Non-Af Amer) 41 10/23/16 05:30 POC Glucose (mg/dL) 311 mg/dL (65-110) H 10/23/16 11:19 Random Glucose 175 mg/dL (75-110) H 10/23/16 05:30 Calcium 8.1 mg/dL (8.4-10.2) L 10/23/16 05:30 Iron 51 ug/dL (49-181) 10/20/16 05:40 TIBC 254 ug/dL (250-450) 10/20/16 05:40 % Saturation 20 % (20-55) 10/20/16 05:40 Ferritin 71.9 ng/mL 10/20/16 05:40 Total Bilirubin 0.1 mg/dl (0.2-1.3) L 10/19/16 05:00 AST 19 U/L (17-59) 10/19/16 05:00 ALT 32 U/L (21-72) 10/19/16 05:00 Alkaline Phosphatase 83 U/L (38-126) 10/19/16 05:00 Troponin I < 0.0120 ng/mL (0.00-0.120) 10/19/16 12:10 NT-Pro-B Natriuret Pep 4330 pg/ml (0-900) H 10/18/16 16:27 Total Protein 4.5 G/DL (6.3-8.2) L 10/19/16 05:00 Albumin 2.0 g/dL (3.5-5.0) L 10/19/16 05:00 Globulin 2.5 gm/dL (2.2-3.9) 10/19/16 05:00 Albumin/Globulin Ratio 0.8 (1.0-2.1) L 10/19/16 05:00 25-OH Vitamin D Total < 12.8 NG/ML (30.0-100.0) L 10/20/16 05:40 TSH 3rd Generation 3.34 mIU/ML (0.46-4.68) 10/20/16 05:40 Cortisol AM Sample 12.4 ug/dL (4.46-22.7) 10/20/16 05:40 Urine Color Yellow (YELLOW) 10/18/16 18:15 Urine Clarity Clear (Clear) 10/18/16 18:15 Urine pH 6.0 (5.0-8.0) 10/18/16 18:15 Ur Specific [employer] 1.017 (1.003-1.030) 10/18/16 18:15 Urine Protein >=500 mg/dL (NEGATIVE) 10/18/16 18:15 Urine Glucose (UA) >=500 mg/dL (Normal) 10/18/16 18:15 Urine Ketones Negative mg/dL (NEGATIVE) 10/18/16 18:15 Urine Blood Small (NEGATIVE) 10/18/16 18:15 Urine Nitrate Negative (NEGATIVE) 10/18/16 18:15 Urine Bilirubin Negative (NEGATIVE) 10/18/16 18:15 Urine Urobilinogen 0.2-1.0 mg/dL (0.2-1.0) 10/18/16 18:15 Ur Leukocyte Esterase Neg Justino/uL (Negative) 10/18/16 18:15 Urine RBC (Auto) 12 /hpf (0-3) H 10/18/16 18:15 Urine Microscopic WBC 1 /hpf (0-5) 10/18/16 18:15 Ur Squamous Epith Cells < 1 /hpf (0-5) 10/18/16 18:15 Urine Bacteria Few (<OCC) H 10/18/16 18:15 Hyaline Casts 0-2 /hpf (0-2) 10/18/16 18:15 Urine Collection Time 24 HRS 10/22/16 11:57 Urine Total Volume 2500 mL 10/22/16 11:57 Creatinine Clearance 35.0 mL/min (107-139) L 10/22/16 11:57 Ur Protein 24 Hr Calc 8300.0 mg/24hr (42-225) H 10/22/16 11:57 Fluid Source Pleural/thoracentesi 10/21/16 10:08 Fluid Appearance Clear (CLEAR) 10/21/16 10:08 Fluid pH 8.0 10/21/16 10:08 Fluid WBC 333.0 /mm3 (0.0-300.0) H 10/21/16 10:08 Fluid RBC 18.0 /mm3 (0.0-0.0) H 10/21/16 10:08 Fluid Tot Cell Count 100 (0-0) H 10/21/16 10:08 Fluid Neutrophils 58.0 % (0-0) H 10/21/16 10:08 Fluid Lymphocytes 35.0 % (0-0) H 10/21/16 10:08 Fld Monocyte/Macrophag 4 % (0-0) H 10/21/16 10:08 Fluid Glucose 184 mg/dL (NONE ESTABLISHED) 10/21/16 10:08 Fluid Total Protein < 2.0 g/dL (NONE ESTABLISHED) 10/21/16 10:08 Fluid LDH 223 IU (NONE ESTABLISHED) 10/21/16 10:08 Fluid Comment Pale yellow 10/21/16 10:08 Stool Occult Blood Negative (NEGATIVE) 10/20/16 08:17 Complement C3 94.0 mg/dL (88.0-165.0) 10/20/16 05:40 Complement C4 43.3 mg/dL (14.0-44.0) 10/20/16 05:40 Hep Bs Antigen Negative (NEGATIVE) 10/20/16 05:40 Hep Bs Antibody Positive (NEGATIVE) 10/20/16 05:40 Hepatitis C Antibody Negative (NEGATIVE) 10/20/16 05:40 - Hospital Course Hospital Course: The patient is a 66 y/o man w/ PMHx of DM, HTN, diastolic CHF, nephrotic syndrome, vascular disease, and Bipolar Disorder admitted for chest pain and uncontrolled HTN. The patient was sent from the [facility] for hypertensive emergency due to BP in 180s systolic, chest pain, and visual disturbance which responded to clonidine. The patient was seen in the ED and given morphine for pain. The patient had CMP, coags, UA, and pro-BNP which were WNL. The CBC showed chronic anemia. The CXR showed pleural effusion for which the patient had thoracocentesis which showed clear yellow exudate. Repeat CXR showed less effusion compared to initial CXR. The patient continued to have elevated blood pressures in the 170s systolic with lowest at 155 systolic and highest at 197 systolic with no complaints of chest pain or visual disturbance. The patient was restarted on home BP medications (amlodipine, furosemide, lisinopril, and metoprolol). The patient was seen by nephrology and had clonidine and hydralazine added for better control. The patient also had blood work drawn to evaluate for possible secondary cause of his resistant hypertension. The patient complained of left leg pain and had bilateral venous ultrasound that showed no DVT. The patient reports improvement and denies any chest pain or dyspnea. The patient is improved but continues to have elevated blood pressure. The patient has been seen, examined, and deemed medically fit with no contraindication for discharge home. The patient is to follow up with the [facility] for health maintenance. The patient will be discharge on the following medications for blood pressure control; amlodipine 10 mg PO daily, clonidine 0.1 PO BID, furosemide 40 mg PO daily, hydralazine 50 mg PO TID, lisinopril 40 mg PO daily, metoprolol 50 mg PO Q12h. He will also be given aspirin 81 mg PO daily, metformin 1000 mg PO BID, glipizide 5 mg PO ACBD, and spironolactone 50 mg PO daily. The patient is to have repeat blood work in 3 days. The patient is to follow up with Dr. Justin in [facility] on 11/01/2016 @ 10:[address] eSbastian for cardiology on 11/05/2016 @ 10:00 AM. Discharge Exam - Head Exam Head Exam: ATRAUMATIC, NORMAL INSPECTION, NORMOCEPHALIC - Eye Exam Eye Exam: EOMI Pupil Exam: PERRL - ENT Exam ENT Exam: Mucous Membranes Moist - Respiratory Exam Respiratory Exam: absent: Accessory Muscle Use, Chest Wall Tenderness, Decreased Breath Sounds, Prolonged Expiratory Phase, Rales, Rhonchi, Wheezes, Respiratory Distress, Stridor Additional comments: mild bibasilar crackles more on the left than right - Cardiovascular Exam Cardiovascular Exam: REGULAR RHYTHM. absent: Tachycardia - GI/Abdominal Exam GI & Abdominal Exam: Normal Bowel Sounds, Soft. absent: Distended, Tenderness - Extremities Exam Additional comments: faint pedal pulses bilaterally, chronic venous stasis changes bilaterally - Neurological Exam Neurological exam: Alert, Normal Gait, Oriented x3 - Skin Skin Exam: Dry, Intact, Normal Color, Warm Discharge Plan - Discharge Medications Prescriptions: amLODIPine [Norvasc] 10 mg PO DAILY #30 tab cloNIDine [Catapres] 0.1 mg PO BID #60 tab Furosemide [Lasix] 40 mg PO DAILY #30 GlipiZIDE [Glucotrol] 5 mg PO ACBD #60 tab hydrALAZINE [Apresoline] 50 mg PO TID #90 tab Lisinopril [Zestril] 40 mg PO DAILY #60 tab MetFORMIN [glucoPHAGE] 1,000 mg PO BIDWM #60 tab Metoprolol Tartrate [Lopressor] 50 mg PO Q12 #60 tab Spironolactone [Aldactone] 50 mg PO DAILY #30 tab - Follow Up Plan Condition: IMPROVED Disposition: HOME/ ROUTINE Instructions: Heart Failure (DC), Chest Pain (DC), Chronic Hypertension (DC) Additional Instructions: Have bloodwork done in 3 days at the lab in the hospital. Follow up with Dr. Justin in the [facility] clinic on November 01 at 10:30am. Follow up with Dr. Sebastian in Specialty clinic on the 1st floor of the hospital on November 05 at 10:00am. Referrals: [facility] [Outside] Shane Sebastian MD [Staff Provider] - Clinical Quality Measures - CQM - Heart Failure Ejection Fraction: Less Than 40 % Left Ventricular Function to be assessed after discharge: Yes ARON Inhibitor Prescribed: Yes Aldosterone Antagonist Prescribed: Yes Will be discharged to: Home Follow Up Date (must be within 7 days from discharge): 11/01/16 Follow Up Time: 09:00
== END 2016-10-23 16:40 | disposition home or self-care (01) | DRG 543 ==
LOC: H.ER 15:40 → H.ERHOLD 18:38 → H.TEL 20:31
PROVIDERS: ADMIT Family Medicine Geriatric Medicine; ATTEND Family Medicine Geriatric Medicine
PROC: 0W9B3ZZ Drainage of Left Pleural Cavity, Percutaneous Approach (ICD-10-PCS; principal; 2016-10-21)
DX: I16.1 Hypertensive emergency (principal); I50.33 Acute on chronic diastolic (congestive) heart failure; J91.8 Pleural effusion in other conditions classified elsewhere; E11.21 Type 2 diabetes mellitus with diabetic nephropathy; N18.3 Chronic kidney disease, stage 3 (moderate); E11.22 Type 2 diabetes mellitus with diabetic chronic kidney disease; E11.65 Type 2 diabetes mellitus with hyperglycemia; I13.0 Hypertensive heart and chronic kidney disease with heart failure and stage 1 through stage 4 chronic kidney disease, or unspecified chronic kidney disease; F17.210 Nicotine dependence, cigarettes, uncomplicated; D63.8 Anemia in other chronic diseases classified elsewhere; F31.9 Bipolar disorder, unspecified; Z59.0 Homelessness; Z91.14 Patient's other noncompliance with medication regimen; F41.9 Anxiety disorder, unspecified; G89.29 Other chronic pain; E83.51 Hypocalcemia; I87.8 Other specified disorders of veins; R91.8 Other nonspecific abnormal finding of lung field; I73.9 Peripheral vascular disease, unspecified

== ENCOUNTER 2016-12-15 16:31 | Emergency (ER) | payer SELFPAY ==
[2016-12-15 16:31] VITALS: BMI 23.8
[2016-12-15 16:36] VITALS: TEMP 99.6
[2016-12-15 17:40] LABS: BASO # 0.1 K/uL (0.0-0.2); BASO % 1.2 % (0.0-2.0); EOS # 0.1 K/uL (0.0-0.7); EOS % 1.4 % (0.0-4.0); HEMATOCRIT 29.9 % (35.0-51.0); LYMPH # 1.8 K/uL (1.0-4.3); LYMPH % 22.8 % (20.0-40.0); MEAN CELL VOLUME 95.4 fl (80.0-94.0); MEAN CORPUSCULAR HEMOGLOBIN 32.7 pg (27.0-31.0); MEAN CORPUSCULAR HGB CONC 34.3 g/dL (33.0-37.0); MEAN PLATELET VOLUME 10.2 fl (7.2-11.7); MONO # 0.4 K/uL (0.0-0.8); MONO % 5.6 % (0.0-10.0); NEUT # 5.5 K/uL (1.8-7.0); NRBC % 0.1 % (0.0-0.0); RED CELL DISTRIBUTION WIDTH 15.8 % (11.5-14.5)
[2016-12-15 17:47] LABS: ALKALINE PHOSPHATASE 76 U/L (38-126); ALT/SGPT 31 U/L (21-72); AST/SGOT 29 U/L (17-59); BILIRUBIN,TOTAL 0.2 mg/dl (0.2-1.3); BLOOD UREA NITROGEN 33 mg/dl (9-20); CARBON DIOXIDE 19 mmol/L (22-30); CHLORIDE 117 mmol/L (98-107); GFR AFRICAN-AMERICAN > 60; GLUCOSE,RANDOM 148 mg/dL (75-110); POTASSIUM 4.4 MMOL/L (3.6-5.0); SODIUM 142 mmol/l (132-148); TOTAL PROTEIN 5.4 G/DL (6.3-8.2)
[2016-12-15 17:50] LABS: ALB/GLOB RATIO 0.9 (1.0-2.1)
[2016-12-15 17:57] LABS: PARTIAL THROMBOPLASTIN TIME 31.1 Seconds (25.6-37.1)
[2016-12-15] MEDS ORDERED: Sodium Chloride 0.9% 1,000 ML IV STA (18:03)
[2016-12-15 18:33] VITALS: PULSE 86; RESP 17; O2SAT 98
--- NOTE | 2016-12-15 19:24 | ED PDOC ---
- Laboratory Results Result Diagrams: 12/15/16 17:22 12/15/16 17:22 - ECG O2 Sat by Pulse Oximetry: 98 Medical Decision Making Medical Decision Makin Patient signed out to me from Dr. Alfredo pending CXR and US results. 2023 US FINDINGS: Right lower extremity: Common femoral, superficial femoral, popliteal and posterior tibial veins were evaluated. All veins examined are compressible. There are no intraluminal filling defects. There is expected blood flow on Doppler imaging. There is change in waveform with augmentation. There is a small node in the right groin. There is right calf edema Left lower extremity: Common femoral, superficial femoral, popliteal and posterior tibial veins were evaluated. All veins examined are compressible. There are no intraluminal filling defects. There is expected blood flow on Doppler imaging. There is change in waveform with augmentation. There is a small node in the left inguinal region. There is edema in the left thigh and left calf; US IMPRESSION: No deep venous thrombosis in the visualized vascular segments of the lower extremities; small inguinal nodes bilaterally; lower extremity edema CXR shows mild CHF. * Lasix 40mg PO 2100 Upon re-evaluation, patient is feeling much better and is medically stable and ready for discharge. Counseling has been provided and patient is in agreement. Return if symptoms persist or acutely worsen. Scribe Attestation: Documented by Mile Blank acting as a scribe for Aliza Tanner MD. Scribe Attestation: All medical record entries made by the Scribe were at my direction and personally dictated by me. I have reviewed the chart and agree that the record accurately reflects my personal performance of the history, physical exam, medical decision making, and the department course for this patient. I have also personally directed, reviewed, and agree with the discharge instructions and disposition. Disposition Counseled Patient/Family Regarding: Studies Performed, Diagnosis, Need For Followup - Clinical Impression Clinical Impression: Chronic edema - POA Present On Arrival: None - Disposition Referrals: [facility] [Outside] [facility] [Outside] Disposition: Routine/Home Disposition Time: 12:00 Condition: IMPROVED Additional Instructions: follow up with your primary doctor in 1-2 days return to the ED with any worsening or concerning symptoms Instructions: Leg Edema (ED)
--- NOTE | 2016-12-15 19:38 | ED PDOC ---
Lower Extremity Pain/Injury Time Seen by Provider: 12/15/16 17:10 Chief Complaint (Nursing): Lower Extremity Problem/Injury Chief Complaint (Provider): Lower Extremity Problem History Per: Patient History/Exam Limitations: no limitations Onset/Duration Of Symptoms: Days (a few days) Current Symptoms Are (Timing): Still Present Additional Complaint(s): 66 year old male presents to ED with complaints of bilateral lower extremity edema and pain for a few days an has an extensive cardiac history and DM (Type II). Patient admits he is noncompliant with his prescriptions. (-) chest pain, SOB, numbness, or tingling. PCP: Non CPH Past Medical History Reviewed: Historical Data, Nursing Documentation, Vital Signs Vital Signs: Last Vital Signs Temp 99.6 F 12/15/16 16:33 Pulse 86 12/15/16 18:32 Resp 17 12/15/16 18:32 BP 183/82 H 12/15/16 18:32 Pulse Ox 98 12/15/16 19:24 - Medical History PMH: Anxiety, Bipolar Disorder, CHF, Depression, Diabetes (type II), HTN, Peripheral Edema, Pneumonia, Chronic Pain (b/l leg pain) Denies: Arthritis, COPD, HIV, Hypercholesterolemia, Hypothyroidism, Chronic Kidney Disease, Rheumatoid Arthritis - Family History Family History: States: Unknown Family Hx - Home Medications Home Medications: Ambulatory Orders Medication Instructions Recorded Aspirin [Aspirin Chewable] 81 mg PO DAILY 10/23/16 Furosemide [Lasix] 40 mg PO DAILY #30 10/23/16 GlipiZIDE [Glucotrol] 5 mg PO ACBD #60 tab 10/23/16 Lisinopril [Zestril] 40 mg PO DAILY #60 tab 10/23/16 MetFORMIN [glucoPHAGE] 1,000 mg PO BIDWM #60 tab 10/23/16 Metoprolol Tartrate [Lopressor] 50 mg PO Q12 #60 tab 10/23/16 Spironolactone [Aldactone] 50 mg PO DAILY #30 tab 10/23/16 amLODIPine [Norvasc] 10 mg PO DAILY #30 tab 10/23/16 cloNIDine [Catapres] 0.1 mg PO BID #60 tab 10/23/16 hydrALAZINE [Apresoline] 50 mg PO TID #90 tab 10/23/16 - Allergies Allergies/Adverse Reactions: Allergies Allergy/AdvReac Type Severity Reaction Status Date / Time No Known Allergies Allergy Verified 12/15/16 18:07 Wells Criteria for PE - Wells Criteria for Pulmonary Embolism Heart Rate >100: No Hemoptysis: No Total Score: 0 Review of Systems ROS Statement: Except As Marked, All Systems Reviewed And Found Negative Cardiovascular: Negative for: Chest Pain Respiratory: Negative for: Shortness of Breath Musculoskeletal: Positive for: Leg Pain (Bilateral lower extermity edema and pain) Neurological: Negative for: Weakness, Numbness Physical Exam - Reviewed Nursing Documentation Reviewed: Yes Vital Signs Reviewed: Yes - Physical Exam Appears: Positive for: Non-toxic, No Acute Distress Head Exam: Positive for: ATRAUMATIC Skin: Positive for: Normal Color, Warm, Dry Eye Exam: Positive for: Normal appearance Cardiovascular/Chest: Positive for: Regular Rate, Rhythm. Negative for: Murmur Respiratory: Positive for: Normal Breath Sounds. Negative for: Respiratory Distress Gastrointestinal/Abdominal: Positive for: Normal Exam, Soft. Negative for: Tenderness Back: Positive for: Normal Inspection Extremity: Positive for: Normal ROM. Negative for: Other (No erythema or induration to bilateral legs; +2 pitting edema bilateral) Neurologic/Psych: Positive for: Alert, Oriented. Negative for: Motor/Sensory Deficits - Laboratory Results Result Diagrams: 12/15/16 17:22 12/15/16 17:22 - ECG O2 Sat by Pulse Oximetry: 98 (RA) Pulse Ox Interpretation: Normal Medical Decision Making Medical Decision Makin Initial impression: chronic leg edema Initial plan: * Labs * PTT/PT * CXR * Lopressor 50mg PO * NS IV * Norvasc 10mg PO * US DUPLEX LOWER EXTRM VEIN BILAT * Re-eval Scribe Attestation: Documented by Mile Blank acting as a scribe for Katherine Alfredo MD. Scribe Attestation: All medical record entries made by the Scribe were at my direction and personally dictated by me. I have reviewed the chart and agree that the record accurately reflects my personal performance of the history, physical exam, medical decision making, and the department course for this patient. I have also personally directed, reviewed, and agree with the discharge instructions and disposition.
--- NOTE | 2016-12-15 20:20 | US ---
EXAM: US Duplex Bilateral Lower Extremity Veins CLINICAL HISTORY: 66 years old, male; Signs and symptoms; Other: Legs swollen; Additional info: Ble swelling TECHNIQUE: Real-time ultrasound scan of the veins of the bilateral lower extremities with color Doppler flow, spectral waveform analysis and compression. EXAM DATE/TIME: 12/15/2016 5:15 PM COMPARISON: US - DUPLEX LOWER EXTRM VEIN BILAT 08/17/2015 9:47:49 AM FINDINGS: Right lower extremity: Common femoral, superficial femoral, popliteal and posterior tibial veins were evaluated. All veins examined are compressible. There are no intraluminal filling defects. There is expected blood flow on Doppler imaging. There is change in waveform with augmentation. There is a small node in the right groin. There is right calf edema Left lower extremity: Common femoral, superficial femoral, popliteal and posterior tibial veins were evaluated. All veins examined are compressible. There are no intraluminal filling defects. There is expected blood flow on Doppler imaging. There is change in waveform with augmentation. There is a small node in the left inguinal region. There is edema in the left thigh and left calf; Impression: No deep venous thrombosis in the visualized vascular segments of the lower extremities; small inguinal nodes bilaterally; lower extremity edema
[2016-12-15 21:10] VITALS: BP 199/97
--- NOTE | 2016-12-16 18:41 | RAD ---
HISTORY: BLE swelling COMPARISON: Chest x-ray performed 10/22/16 TECHNIQUE: Chest, one view. FINDINGS: LUNGS: Left basilar atelectasis/infiltrate and or small pleural effusion. No definite pneumothorax . Please note that chest x-ray has limited sensitivity for the detection of pulmonary masses. CARDIOVASCULAR: Cardiomegaly. Dense atherosclerotic calcification of the aortic knob. OSSEOUS STRUCTURES: No acute osseous abnormality identified. VISUALIZED UPPER ABDOMEN: Unremarkable. OTHER FINDINGS: None. IMPRESSION: Left basilar atelectasis/infiltrate and or small pleural effusion. Cardiomegaly. Dense atherosclerotic calcification of the aortic knob. Study marked for PA review.
== END 2016-12-16 01:45 | disposition home or self-care (01) ==
LOC: H.ER 16:31
DX: R60.0 Localized edema (principal); E11.9 Type 2 diabetes mellitus without complications

== ENCOUNTER 2017-03-05 12:57 | Inpatient (IN) | payer OTHER, SELFPAY ==
[2017-03-05 12:58] VITALS: BMI 23.8
--- NOTE | 2017-03-05 13:23 | ED PDOC ---
HPI: Chest Pain Time Seen by Provider: 03/05/17 13:05 Chief Complaint (Nursing): Chest Pain Chief Complaint (Provider): chest pain History Per: Patient History/Exam Limitations: no limitations Onset/Duration Of Symptoms: Days (x 3) Additional Complaint(s): Kris Durand is a 66 year old non-domiciled male, with a previous medical history of hypertension, CHF, diabetes and bipolar disorder, who presents to the ED with complaints of right sided chest pain associated with shortness of breath, bilateral leg swelling and nonbloody diarrhea ongoing for 3 days. Patient denies any fever, chills, headache, dizziness, nausea, vomiting, abdominal pain, urinary symptoms, numbness or tingling. Patient states he is noncompliant with his medications. PMD: none provided Past Medical History Reviewed: Historical Data, Nursing Documentation, Vital Signs Vital Signs: Last Vital Signs Temp 98.0 F 03/05/17 13:00 Pulse 86 03/05/17 13:00 Resp 16 03/05/17 13:00 BP 192/96 H 03/05/17 13:00 Pulse Ox 98 03/05/17 15:16 - Medical History PMH: Anxiety, Bipolar Disorder, CHF, Depression, Diabetes (type II), HTN, Peripheral Edema, Pneumonia, Chronic Pain (b/l leg pain) Denies: Arthritis, COPD, HIV, Hypercholesterolemia, Hypothyroidism, Chronic Kidney Disease, Rheumatoid Arthritis - Surgical History Surgical History: No Surg Hx - Family History Family History: States: Unknown Family Hx - Home Medications Home Medications: Ambulatory Orders Medication Instructions Recorded Aspirin [Aspirin Chewable] 81 mg PO DAILY 10/23/16 Furosemide [Lasix] 40 mg PO DAILY #30 10/23/16 GlipiZIDE [Glucotrol] 5 mg PO ACBD #60 tab 10/23/16 Lisinopril [Zestril] 40 mg PO DAILY #60 tab 10/23/16 MetFORMIN [glucoPHAGE] 1,000 mg PO BIDWM #60 tab 10/23/16 Metoprolol Tartrate [Lopressor] 50 mg PO Q12 #60 tab 10/23/16 Spironolactone [Aldactone] 50 mg PO DAILY #30 tab 10/23/16 amLODIPine [Norvasc] 10 mg PO DAILY #30 tab 10/23/16 cloNIDine [Catapres] 0.1 mg PO BID #60 tab 10/23/16 hydrALAZINE [Apresoline] 50 mg PO TID #90 tab 10/23/16 - Allergies Allergies/Adverse Reactions: Allergies Allergy/AdvReac Type Severity Reaction Status Date / Time No Known Allergies Allergy Verified 12/15/16 18:07 Review of Systems ROS Statement: Except As Marked, All Systems Reviewed And Found Negative Constitutional: Negative for: Fever, Chills Cardiovascular: Positive for: Chest Pain Respiratory: Positive for: Shortness of Breath Gastrointestinal: Positive for: Diarrhea. Negative for: Nausea, Vomiting, Abdominal Pain Genitourinary Male: Negative for: Dysuria, Frequency, Incontinence, Hematuria Musculoskeletal: Positive for: Other (leg swelling) Neurological: Negative for: Numbness, Headache, Dizziness Physical Exam - Reviewed Nursing Documentation Reviewed: Yes Vital Signs Reviewed: Yes - Physical Exam Appears: Positive for: Non-toxic, No Acute Distress Head Exam: Positive for: ATRAUMATIC, NORMAL INSPECTION, NORMOCEPHALIC Skin: Positive for: Normal Color, Warm, Dry Eye Exam: Positive for: EOMI, Normal appearance, PERRL ENT: Positive for: Normal ENT Inspection Neck: Positive for: Normal, Painless ROM, Supple Cardiovascular/Chest: Positive for: Regular Rate, Rhythm, Edema Respiratory: Positive for: Other (coarse breath sounds bilaterally ). Negative for: Respiratory Distress Gastrointestinal/Abdominal: Positive for: Normal Exam, Bowel Sounds, Soft. Negative for: Tenderness Back: Positive for: Normal Inspection. Negative for: L CVA Tenderness, R CVA Tenderness Extremity: Positive for: Normal ROM, Tenderness (b/l calf), Pedal Edema (b/l with 2+pitting) Neurologic/Psych: Positive for: Alert, Oriented - Laboratory Results Result Diagrams: 03/05/17 13:35 03/05/17 13:35 Interpretation Of Abn Labs: 36/1.9 bun/cr; elevated probnp - ECG ECG: Positive for: Interpreted By Me, Viewed By Me ECG Rhythm: Positive for: Normal ST Segment, Sinus Rhythm. Negative for: ST/T Changes O2 Sat by Pulse Oximetry: 98 (RA) Pulse Ox Interpretation: Normal - Radiology X-Ray: Read By Radiologist X-Ray Interpretation: Other (effusion L and venous congestion) - Progress ED Course And Treament: 1516: Stable. AAOx3. Pain free. Will need admit for chf and pleural effusion. Spoke with [facility] resident. Will admit tele. Medical Decision Making Medical Decision Making: Initial Plan: * alcohol serum * b-type natriuretic peptide * Troponin I * EKG * PTT * PT * CXR * aspirin 325 mg PO * Bentyl 10 mg PO * albuterol * solu-medrol 125 mg IV * peak flow pre/post treatment * US duplex lower extremity * reevaluation Scribe Attestation: Documented by Katherine Del Angel, acting as a scribe for Willem Kimbrough MD. Provider Scribe Attestation: All medical record entries made by the Scribe were at my direction and personally dictated by me. I have reviewed the chart and agree that the record accurately reflects my personal performance of the history, physical exam, medical decision making, and the department course for this patient. I have also personally directed, reviewed, and agree with the discharge instructions and disposition. Disposition - Clinical Impression Clinical Impression: CHF (congestive heart failure), Chest pain, Pleural effusion - Patient ED Disposition Is Patient to be Admitted: Yes Counseled Patient/Family Regarding: Studies Performed, Diagnosis - Disposition Disposition Time: 15:20 Condition: FAIR - Pt Status Changed To: Hospital Disposition Of: Inpatient - Admit Certification Admit to Inpatient:: After my assessment, the patient will require hospitalization for at least two midnights. This is because of the severity of symptoms shown, intensity of services needed, and/or the medical risk in this patient being treated as an outpatient. - POA Present On Arrival: None Core Measure Indicators: Chest Pain
[2017-03-05 13:49] LABS: BASO % 0.4 % (0.0-2.0); EOS # 0.1 K/uL (0.0-0.7); EOS % 1.8 % (0.0-4.0); HEMATOCRIT 33.2 % (35.0-51.0); LYMPH # 1.3 K/uL (1.0-4.3); LYMPH % 21.5 % (20.0-40.0); MEAN CELL VOLUME 95.7 fl (80.0-94.0); MEAN CORPUSCULAR HEMOGLOBIN 32.2 pg (27.0-31.0); MEAN CORPUSCULAR HGB CONC 33.7 g/dL (33.0-37.0); MONO # 0.4 K/uL (0.0-0.8); MONO % 7.1 % (0.0-10.0); NEUT # 4.1 K/uL (1.8-7.0); NEUT % 69.2 % (50.0-75.0); NRBC % 0.1 % (0.0-0.0); RED CELL DISTRIBUTION WIDTH 15.1 % (11.5-14.5)
[2017-03-05 13:58] LABS: ALCOHOL SERUM < 10 mg/dl (0-10); ALKALINE PHOSPHATASE 74 U/L (38-126); ALT/SGPT 37 U/L (21-72); AST/SGOT 45 U/L (17-59); BILIRUBIN,TOTAL 0.4 mg/dl (0.2-1.3); BLOOD UREA NITROGEN 36 mg/dl (9-20); CALCIUM 8.3 mg/dL (8.4-10.2); CARBON DIOXIDE 21 mmol/L (22-30); CHLORIDE 115 mmol/L (98-107); GFR AFRICAN-AMERICAN 43; GLUCOSE,RANDOM 133 mg/dL (75-110); POTASSIUM 3.8 MMOL/L (3.6-5.0); SODIUM 141 mmol/l (132-148); TOTAL PROTEIN 5.6 G/DL (6.3-8.2)
[2017-03-05 14:08] LABS: PARTIAL THROMBOPLASTIN TIME 33.2 Seconds (25.6-37.1)
[2017-03-05] MEDS ORDERED: Albuterol-Ipratrop 3 mg / 0.5 (3 ml) UD INH STA (14:16)
[2017-03-05] MEDS ORDERED: Albuterol-Ipratrop 3 mg / 0.5 (3 ml) UD IH STA (14:16)
--- NOTE | 2017-03-05 14:39 | RAD ---
HISTORY: dyspnea COMPARISON: 12/15/2016 FINDINGS: LUNGS: There is mild pulmonary venous congestion. There is atelectasis/ scarring in the right upper and lower lobes. PLEURA: Moderate left pleural effusion. No pneumothorax. CARDIOVASCULAR: Borderline cardiomegaly. Atherosclerotic aortic arch calcifications are present. OSSEOUS STRUCTURES: No significant abnormalities. VISUALIZED UPPER ABDOMEN: Normal. OTHER FINDINGS: None. IMPRESSION: 1. Moderate left pleural effusion. Underlying pneumonia cannot be excluded. Follow-up to resolution is advised. 2. Mild pulmonary venous congestion. Atelectasis/scarring in the right upper and lower lobes.
--- NOTE | 2017-03-05 14:45 | US ---
PROCEDURE: Bilateral lower extremity venous duplex Doppler. HISTORY: r/o dvt COMPARISON: None available. TECHNIQUE: Bilateral common femoral, superficial femoral, popliteal and posterior tibial veins were evaluated. Flow was assessed with color Doppler, compressibility, assessment of phasic flow and augmentation response. FINDINGS: COMMON FEMORAL VEIN: Right CFV: Normal flow, compressibility and augmentation response. Left CFV: Normal flow, compressibility and augmentation response. SUPERFICIAL FEMORAL VEIN: Right SFV: Normal flow, compressibility and augmentation response. Left SFV: Normal flow, compressibility and augmentation response. POPLITEAL VEIN: Right Popliteal: Normal flow, compressibility and augmentation response. Left Popliteal: Normal flow, compressibility and augmentation response. POSTERIOR TIBIAL VEIN: Right PTV: Normal flow, compressibility and augmentation response. Left PTV: Normal flow, compressibility and augmentation response. OTHER FINDINGS: There is a 4.5 x 0.9 x 2.9 cm right popliteal cyst and a 2.9 x 0.7 x 2.6 cm left popliteal cyst. There are enlarged bilateral inguinal lymph nodes. There is diffuse subcutaneous edema. IMPRESSION: 1. No evidence of deep venous thrombosis. 2. Bilateral popliteal cysts, larger on the right. 3. Bilateral inguinal lymphadenopathy. Clinical correlation and follow-up is advised.
[2017-03-05] MEDS ORDERED: Albuterol-Ipratrop 3 mg / 0.5 (3 ml) UD ONE (14:52)
[2017-03-05] MEDS ORDERED: Albuterol-Ipratrop 3 mg / 0.5 (3 ml) UD INH PRN (16:42)
--- NOTE | 2017-03-05 17:36 | CP.PCM.HP ---
History of Present Illness - History of Present Illness History of Present Illness: 66 y/o homeless M with PMHx of DM type 2, HTN, Diastolic CHF, who presents to ED c/o intermittent right sided chest pain, and back pain for months, no radiating, worse when taking deep breath. Also patient is c/o SOB, intermittent for 1 year, however worsening for the last 3 months, and bilateral leg swelling. Also patient states that he has had many episodes of watery, unknown if bloody, diarrheas since yesterday, associated to chills, diffuse abdominal pain, nausea, and one episode of vomit. Patient reports that he run out of his medications 3 days ago, and he can not afford his medications. 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 PMD: CFH PMHx: DM type 2, HTN, diastolic CHF FHx: Mother//DM Social: smoker: 1 pack every 3 days since age 12, no etoh, no recreational drugs Allergies: NKDA Homeless ED course: Alert, awake, oriented x 3 VS: afebrile, BP: elevated : 192/96 PE: alert, oriented x 3 CV: RRR, normal S1, S2, no murmur resp: decreased breath sounds to auscultation of lower lobes bilateral, mostly in left side, fine scant crackles in right lower lobe. extremities: lower ext edema pitting 3+, decreased peripheral pulses b/l neuro: grossly normal Lbs: CBC: H/H: 11.2/33.2, no leukocytosis CMP: BUN/Cr: 36/1.9 Pro-BNP: 8640 EKG: no acute ST-T wave changes CXR: moderate left pleural effusion, underlying pneumonia no excluded treatment:ASA 325 PO once, Bentyl 10 mg once, Duoneb x 2, solu-medrol 125 mg once, lasix 40 mg IV once, Nitrostat sl 0.4 mg once, lisinopril 40 mg once Present on Admission - Present on Admission Any Indicators Present on Admission: No History of DVT/PE: No History of Uncontrolled Diabetes: No Urinary Catheter: No Decubitus Ulcer Present: No Review of Systems - Review of Systems All systems: reviewed and no additional remarkable complaints except (as per HPI ) Past Patient History - Infectious Disease Hx of Infectious Diseases: None - Tetanus Immunizations Tetanus Immunization: Unknown - Past Medical History & Family History Past Medical History?: Yes - Past Social History Smoking Status: Light Smoker < 10 Cigarettes Daily - CARDIAC Hx Congestive Heart Failure: Yes Hx Hypercholesterolemia: No Hx Hypertension: Yes Hx Peripheral Edema: Yes - PULMONARY Hx Chronic Obstructive Pulmonary Disease (COPD): No Hx Pneumonia: Yes - NEUROLOGICAL Hx Neurological Disorder: No - HEENT Hx HEENT Problems: No - RENAL Hx Chronic Kidney Disease: No - ENDOCRINE/METABOLIC Hx Hypothyroidism: No - HEMATOLOGICAL/ONCOLOGICAL Hx Human Immunodeficiency Virus (HIV): No - INTEGUMENTARY Hx Dermatological Problems: Yes - MUSCULOSKELETAL/RHEUMATOLOGICAL Hx Arthritis: No Hx Rheumatoid Arthritis: No - GASTROINTESTINAL Hx Gastrointestinal Disorders: No - GENITOURINARY/GYNECOLOGICAL Hx Genitourinary Disorders: No - PSYCHIATRIC Hx Anxiety: Yes Hx Bipolar Disorder: Yes Hx Depression: Yes - SURGICAL HISTORY Hx Surgeries: No - ANESTHESIA Hx Anesthesia: Yes Hx Anesthesia Reactions: No Hx Malignant Hyperthermia: No Meds Allergies/Adverse Reactions: Allergies Allergy/AdvReac Type Severity Reaction Status Date / Time No Known Allergies Allergy Verified 12/15/16 18:07 Physical Exam - Constitutional Appears: No Acute Distress - ENT Exam ENT Exam: Mucous Membranes Moist - Respiratory Exam Respiratory Exam: Decreased Breath Sounds (lower lobes b/l), Rales (fine, diffuse, in right lower lobe), NORMAL BREATHING PATTERN - Cardiovascular Exam Cardiovascular Exam: REGULAR RHYTHM - GI/Abdominal Exam GI & Abdominal Exam: Normal Bowel Sounds, Soft, Tenderness (diffuse tenderness to palpation, mostly in RLQ). absent: Distended, Guarding, Rebound, Rigid - Extremities Exam Extremities exam: Positive for: normal inspection. Negative for: calf tenderness, pedal edema - Neurological Exam Neurological exam: Alert, Oriented x3 Results - Vital Signs Recent Vital Signs: Last Vital Signs Temp 98.0 F 03/05/17 13:00 Pulse 89 03/05/17 16:38 Resp 20 03/05/17 16:38 BP 163/78 H 03/05/17 16:38 Pulse Ox 100 03/05/17 16:38 - Labs Result Diagrams: 03/05/17 13:35 03/05/17 13:35 Assessment & Plan - Assessment and Plan (Free Text) Assessment: 66 y/o homeless M with PMHx of DM type 2, HTN, Diastolic CHF admitted with CHF exacerbation. Plan: SOB most likely due to Diastolic Congested Heart Failure exacerbation as per last Echo on 08/16/16 left ventricle systolic function was borderline. EF : 45-50 % Possible a combination of diastolic with systolic CHF -admit to telemetry -c/w Furosemide 40 mg IVP daily -c/w home Lisinopril 40 mg PO daily c/w aspirin 81 mg PO daily -Held Metoprolol T 50 mg BID for now because CHF in exacerbation -f/u clinical status Chest pain -reproducible with palpation possible 2/2 costochondritis Troponin I x neg EKG showed no acute ST-T wave changes f/u Troponin I pain control c/w monitoring HTN uncontrolled 2/2 no taking antihypertensive c/w Lisinopril 40 mg PO daily Held Metoprolol T 50 mg BID for now because CHF in exacerbation Held amlodipine because edema Abdominal pain, associated to diarrheas acute Viral gastroenteritis? afebrile, no leukocytosis f/ru tolerance of heart healthy diet DM type 2 re-assume glipizide BID Stop Metformin because GFR : 36 Insulin Lispro by sliding scale accucheck ACHS Azotemia Cr: 1.9, in previous admission 1.4 possible 2/2 decreased cardiac output 2/2 CHF exacerbation c/w lasix f/u BUN/Cr DVT prophylaxis SCDs for now - Date & Time Date: 03/05/17 Time: 17:00
[2017-03-06] MEDS: Insulin Lispro (humaLOG) 100 Units/ml Inj SC SCH ×5 (00:36→22:15)
[2017-03-06 06:45] LABS: HEMATOCRIT 30.1 % (35.0-51.0); MEAN CELL VOLUME 94.7 fl (80.0-94.0); MEAN CORPUSCULAR HEMOGLOBIN 31.9 pg (27.0-31.0); MEAN CORPUSCULAR HGB CONC 33.7 g/dL (33.0-37.0); RED CELL DISTRIBUTION WIDTH 14.7 % (11.5-14.5); WHITE BLOOD COUNT 4.9 K/uL (4.8-10.8)
[2017-03-06 06:46] LABS: ALB/GLOB RATIO 1.1 (1.0-2.1); BILIRUBIN,TOTAL 0.2 mg/dl (0.2-1.3); CALCIUM 7.9 mg/dL (8.4-10.2); POTASSIUM 3.6 MMOL/L (3.6-5.0)
[2017-03-06 06:54] LABS: TROPONIN I 0.022 ng/mL (0.00-0.120)
--- NOTE | 2017-03-06 09:39 | CP.PCM.PN ---
Subjective - Date & Time of Evaluation Date of Evaluation: 03/06/17 Time of Evaluation: 07:15 - Subjective Subjective: Patient seen and examined in telemetry unit this morning. Patient less short of breath than yesterday. Still right sided chest pain present and reproducible with palpation, however improving Afebrile, but but still elevated today Denies N/V, abdominal pain, or new episodes of diarrheas. Last diarrhea was yesterday before admission Objective - Vital Signs/Intake and Output Vital Signs (last 24 hours): Temp Pulse Resp BP Pulse Ox 98.3 F 70 18 183/80 H 97 03/06/17 08:19 03/06/17 09:21 03/06/17 08:19 03/06/17 09:21 03/06/17 08:19 - Medications Medications: Current Medications Acetaminophen (Tylenol 325mg Tab) 650 mg PO Q4 PRN PRN Reason: Pain, Mild (1-3) Albuterol/Ipratropium (Duoneb 3 Mg/0.5 Mg (3 Ml) Ud) 3 ml INH RQ4 PRN PRN Reason: Shortness of Breath Amlodipine Besylate (Norvasc) 10 mg PO DAILY [facility] Aspirin (Ecotrin) 81 mg PO DAILY [facility] Last Admin: 03/06/17 09:17 Dose: 81 mg Clonidine HCl (Catapres) 0.1 mg PO BID [facility] Last Admin: 03/06/17 09:21 Dose: 0.1 mg Furosemide (Lasix) 40 mg IVP DAILY [facility] Last Admin: 03/06/17 09:19 Dose: 40 mg Hydralazine HCl (Apresoline) 25 mg PO TID [facility] Insulin Human Lispro (Humalog) 0 units SC ACHS [facility] PRN Reason: Protocol Last Admin: 03/06/17 07:10 Dose: 4 unit Lisinopril (Zestril) 40 mg PO DAILY [facility] Last Admin: 03/06/17 09:17 Dose: 40 mg Metoprolol Tartrate (Lopressor) 50 mg PO Q12 [facility] Nitroglycerin (Nitrostat Sl Tab) 0.4 mg SL Q5M PRN PRN Reason: Other Pentoxifylline (Pentoxil) 400 mg PO TID [facility] Last Admin: 03/06/17 09:17 Dose: 400 mg Spironolactone (Aldactone) 50 mg PO DAILY [facility] Last Admin: 03/06/17 09:17 Dose: 50 mg - Labs Labs: 03/06/17 05:00 03/06/17 05:00 PT 11.0 Seconds (9.8-13.1) 03/05/17 13:35 INR 1.1 (0.9-1.2) 03/05/17 13:35 APTT 33.2 Seconds (25.6-37.1) 03/05/17 13:35 - Constitutional Appears: No Acute Distress - ENT Exam ENT Exam: Mucous Membranes Moist - Respiratory Exam Respiratory Exam: Decreased Breath Sounds (still decreased breath sound to auscultation of lower lobes bilateral, however improving. Fine scan crackles in right lower lobe. ), NORMAL BREATHING PATTERN - Cardiovascular Exam Cardiovascular Exam: REGULAR RHYTHM, +S1, +S2 - GI/Abdominal Exam GI & Abdominal Exam: Soft, Normal Bowel Sounds. absent: Distended, Firm, Guarding, Rigid, Tenderness - Extremities Exam Extremities Exam: Pedal Edema. absent: Calf Tenderness Additional comments: Edema in lower extremities pitting 3+, improving - Neurological Exam Neurological Exam: Alert, Awake, Oriented x3 Assessment and Plan - Assessment and Plan (Free Text) Assessment: 66 y/o homeless M with PMHx of DM type 2, HTN, Diastolic CHF admitted with CHF exacerbation and chest pain. Plan: Diastolic Congested Heart Failure exacerbation Improving clinically as per last Echo on 08/16/16 left ventricle systolic function was borderline. EF : 45-50 % Possible a combination of diastolic with systolic CHF -c/w Furosemide 40 mg IVP daily -c/w home Lisinopril 40 mg PO daily -c/w aspirin 81 mg PO daily -started on Hydralazine 25 mg TID PO -Started on clonidine 0.1 mg BID -started on Aldactone 50 mg PO daily -Held Metoprolol T 50 mg BID for now because CHF in exacerbation. -Held Amlodipine because edema -f/u clinical status Chest pain improving, ACS ruled out -reproducible with palpation possible 2/2 costochondritis vs CHF exacerb Troponin I x 3 neg EKG showed no acute ST-T wave changes pain control c/w monitoring HTN uncontrolled 2/2 no taking antihypertensive c/w Lisinopril 40 mg PO daily -started on Hydralazine 25 mg TID PO -Started on clonidine 0.1 mg BID Held Metoprolol T 50 mg BID for now because CHF in exacerbation Held amlodipine because edema Abdominal pain, associated to diarrheas resolved, asymptomatic this morning, and tolerating heart healthy diet Viral gastroenteritis? afebrile, no leukocytosis DM type 2 re-assume glipizide BID Stopped Metformin because GFR : 36 Insulin Lispro by sliding scale start Levemir 10 units SC HS accucheck ACHS CKD stage 3 Noted in previous admission was mention by nephro in prior admission Diabetic nephropathy vs Chronic glomerulonephritis Cr: 2.0 today, BUN:45 possible 2/2 decreased cardiac output 2/2 CHF exacerbation, but pt also has a h/ o Nephrotic syndrome consider Nephro c/w lasix f/u Cr Cleranc, protein 24 hr,C 3, C4, ELIJAH, Sed rate, Microalb f/u BUN/Cr Consider Re- consult Nephro DVT prophylaxis Heparin 5000 units Q12
--- NOTE | 2017-03-06 14:23 | CT ---
PROCEDURE: CT Chest without contrast HISTORY: evaluate nodules, other pathologies; compare2 prev COMPARISON: None. TECHNIQUE: Contiguous axial images were obtained through the chest without intravenous contrast enhancement. Sagittal and coronal reconstructions were performed. Radiation dose (DLP): 244.78 mGy-cm. This CT exam was performed using one or more of the following dose reduction techniques: Automated exposure control, adjustment of the mA and/or kV according to patient size, and/or use of iterative reconstruction technique. FINDINGS: LUNGS: Persisting cavitary nodule pleural-based originate from superior segment right lower lobe. The cavitary component is partially collapsed compared the prior study. The solid nodular component is stable. Orthogonal measurements 9 x 12 mm. MEDIASTINUM: Lingular atelectasis, consolidative change remains. Unremarkable thoracic aorta. No aneurysm. Normal sized heart. Main pulmonary artery unremarkable. No vascular congestion. No lymphadenopathy. PLEURA: Bilateral pleural effusions left larger than right. The effusions have increased bilaterally. Compressive atelectasis both lower lobes. BONES: No fracture. No destructive lesion. UPPER ABDOMEN: Grossly unremarkable. OTHER FINDINGS: None. IMPRESSION: Partial collapse of cavitary component of complex nodule/ mass. Stable solid component 9 x 12 mm. Modest interval increase in bilateral pleural effusions.
--- NOTE | 2017-03-06 15:15 | RAD ---
HISTORY: pneumonia VS chf COMPARISON: CT chest from 03/06/2017 TECHNIQUE: Chest PA and lateral FINDINGS: LUNGS: The lungs are well inflated. There is a 14 mm nodule in the right lower lobe. There is a persistent left lower lobe consolidation. There is mild pulmonary venous congestion. There is right basilar atelectasis. PLEURA: There is a persistent moderate left pleural effusion. Also noted is small right pleural effusion. No pneumothorax. CARDIOVASCULAR: The heart is normal in size. Atherosclerotic aortic arch calcifications are present. OSSEOUS STRUCTURES: No significant abnormalities. VISUALIZED UPPER ABDOMEN: Normal. OTHER FINDINGS: None. IMPRESSION: No significant interval change in left lower lobe atelectasis/ consolidation and moderate left pleural effusion. Follow-up is advised. 14 mm nodule in the right lower lobe.
[2017-03-06] MEDS: Insulin Detemir 100 Units/ml Inj SC SCH (22:16)
[2017-03-07 00:55] LABS: RBC URINE 6 /hpf (0-3); URINE BILIRUBIN NEGATIVE (NEGATIVE); URINE BLOOD SMALL (NEGATIVE); URINE COLOR YELLOW (YELLOW); URINE GLUCOSE (UA) >=500 mg/dL (Normal); URINE KETONE NEGATIVE (NEGATIVE); URINE LEUKOCYTE ESTERASE NEG Leu/uL (Negative); URINE PROTEIN >=500 mg/dL (NEGATIVE); URINE UROBILINOGEN 0.2-1.0 mg/dL (0.2-1.0); WBC URINE 5 /hpf (0-5)
[2017-03-07] MEDS: Insulin Lispro (humaLOG) 100 Units/ml Inj SC SCH ×4 (06:41→21:40)
--- NOTE | 2017-03-07 08:52 | CP.PCM.PN ---
Subjective - Date & Time of Evaluation Date of Evaluation: 03/07/17 Time of Evaluation: 07:55 - Subjective Subjective: Patient seen and examined this morning in telemetry. Still c/o being short of breath, mild upper back pain, but improving. Denies Cp, N,V, abdominal pain, diarrheas at this evaluation Afebrile, had an uneventful night Objective - Vital Signs/Intake and Output Vital Signs (last 24 hours): Temp Pulse Resp BP Pulse Ox 97.8 F 62 18 164/64 H 98 03/07/17 08:00 03/07/17 08:00 03/07/17 08:00 03/07/17 08:00 03/07/17 08:00 - Medications Medications: Current Medications Acetaminophen (Tylenol 325mg Tab) 650 mg PO Q4 PRN PRN Reason: Pain, Mild (1-3) Albuterol/Ipratropium (Duoneb 3 Mg/0.5 Mg (3 Ml) Ud) 3 ml INH RQ4 PRN PRN Reason: Shortness of Breath Amlodipine Besylate (Norvasc) 10 mg PO DAILY [facility] Aspirin (Ecotrin) 81 mg PO DAILY [facility] Last Admin: 03/06/17 09:17 Dose: 81 mg Clonidine HCl (Catapres) 0.1 mg PO BID [facility] Last Admin: 03/06/17 16:44 Dose: 0.1 mg Furosemide (Lasix) 40 mg IVP DAILY [facility] Last Admin: 03/06/17 09:19 Dose: 40 mg Glipizide (Glucotrol) 5 mg PO BID [facility] Last Admin: 03/06/17 16:42 Dose: 5 mg Heparin Sodium (Porcine) (Heparin) 5,000 units SC Q12 [facility] PRN Reason: Protocol Last Admin: 03/06/17 22:12 Dose: 5,000 units Hydralazine HCl (Apresoline) 25 mg PO TID [facility] Last Admin: 03/06/17 16:42 Dose: 25 mg Insulin Detemir (Levemir) 10 units SC HS [facility] Last Admin: 03/06/17 22:16 Dose: 10 u Insulin Human Lispro (Humalog) 0 units SC ACHS [facility] PRN Reason: Protocol Last Admin: 03/07/17 06:41 Dose: Not Given Lisinopril (Zestril) 40 mg PO DAILY [facility] Last Admin: 03/06/17 09:17 Dose: 40 mg Metoprolol Tartrate (Lopressor) 50 mg PO Q12 [facility] Nitroglycerin (Nitrostat Sl Tab) 0.4 mg SL Q5M PRN PRN Reason: Other Pentoxifylline (Pentoxil) 400 mg PO TID [facility] Last Admin: 03/06/17 16:42 Dose: 400 mg Spironolactone (Aldactone) 50 mg PO DAILY [facility] Last Admin: 03/06/17 09:17 Dose: 50 mg - Labs Labs: 03/06/17 05:00 03/06/17 05:00 PT 11.0 Seconds (9.8-13.1) 03/05/17 13:35 INR 1.1 (0.9-1.2) 03/05/17 13:35 APTT 29.2 Seconds (25.6-37.1) 03/07/17 06:20 - Constitutional Appears: No Acute Distress - ENT Exam ENT Exam: Mucous Membranes Moist - Respiratory Exam Respiratory Exam: Clear to Ausculation Bilateral, NORMAL BREATHING PATTERN - Cardiovascular Exam Cardiovascular Exam: REGULAR RHYTHM, +S1, +S2 - GI/Abdominal Exam GI & Abdominal Exam: Soft, Normal Bowel Sounds. absent: Firm, Guarding, Rigid, Tenderness - Extremities Exam Extremities Exam: Pedal Edema. absent: Calf Tenderness Additional comments: lower extremities edema bilateral, pitting 2+ - Neurological Exam Neurological Exam: Alert, Awake, Oriented x3 - Skin Skin Exam: Dry, Intact, Normal Color Assessment and Plan - Assessment and Plan (Free Text) Assessment: 66 y/o homeless M with PMHx of DM type 2, HTN, Diastolic CHF admitted with CHF exacerbation and chest pain. Plan: Diastolic Congested Heart Failure exacerbation Improving clinically Possible a combination of diastolic with systolic CHF -c/w Furosemide 40 mg IVP daily -c/w home Lisinopril 40 mg PO daily -c/w Aldactone 50 mg PO daily -Held Metoprolol T 50 mg BID for now because CHF in exacerbation. -re-started Metoprolol T 50 mg BID CXR on 03/06/17: no significant interval change in left lower lobe atelectasis/ consolidation with moderate left pleural effusion. -f/u clinical status -Cardiology consult appreciated, Dr. Sebastian. Cardio agrees with current medical management, and recommends re-start Metoprolol -consider IR consult for possible toracentesis Chest pain improving, ACS ruled out -reproducible with palpation possible 2/2 costochondritis Troponin I x 3 neg EKG showed no acute ST-T wave changes pain control c/w monitoring HTN uncontrolled 2/2 no taking antihypertensive -c/w Lisinopril 40 mg PO daily -c/w aspirin 81 mg PO daily -c/w Hydralazine 25 mg TID PO -c/w clonidine 0.1 mg BID -re-started Metoprolol T 50 mg BID -start Atorvastatin 40 mg daily -re-started amlodipine 10 mg PO daily DM type 2 re-assume glipizide BID Stopped Metformin because GFR : 36 Insulin Lispro by sliding scale c/w Levemir 10 units SC HS accucheck ACHS CKD stage 3 Noted in previous admission was mention by nephro in prior admission Diabetic nephropathy vs Chronic glomerulonephritis Cr: 2.1 today, BUN:52 possible 2/2 decreased cardiac output 2/2 CHF exacerbation, but pt also has a h/ o Nephrotic syndrome c/w lasix f/u Cr Cleranc, protein 24 hr,C 3, C4, ELIJAH, Sed rate, Microalb f/u BUN/Cr Consult Nephro appreciated, f/u recommendations H/o of Lung nodule Chest CT scan on 09/2016 showed a 15 mm subpleural cavity in the superior segment of right lower lobe with the largest lateral nodule 9 mm. With 3 months f/u recommendations. Pt was supposed to f/u at [facility] with PMD, but did not. Will do recommended chest CT scan while in house. Chest CT on 03/06/17: Partial collapse of cavitary component of complex nodule/ mass. Stable solid component 9 x 12 mm DVT prophylaxis Heparin 5000 units Q12
[2017-03-07 09:56] LABS: BILIRUBIN,TOTAL 0.2 mg/dl (0.2-1.3); POTASSIUM 3.8 MMOL/L (3.6-5.0); TOTAL PROTEIN 5.5 G/DL (6.3-8.2)
--- NOTE | 2017-03-07 10:30 | CP.PCM.CON ---
History of Present Illness - History of Present Illness History of Present Illness: This 66-year-old man who gives history of being a diabetic since 1990 and having suffered a myocardial infarction in 1991 has come to the hospital complaining of shortness of breath. Pedal edema and recurring diarrhea with chills and fever. He is a hypertensive and chronic cigarette smoker who reports that he quit smoking couple of weeks back. The patient has had multiple hospitalizations in the past and has been treated for congestive cardiac failure. He lives in a homeless senior care and cannot afford medications and often does not take them because of it. He is also not on salt restricted diet. He denies any effort related chest pain but reports significan dyspnea on exertion. Physical examination shows an elderly man was able to lie virtually flat in bed and breathing comfortably at rest. Has a heart rate of 74 bpm regular and a blood pressure of 170/70 mmHg. His jugular venous pressure was not elevated and there was moderate to severe pedal edema. His pedal pulses could not be felt because of pedal edema. There was no carotid bruits. Extremities were warm and nailbeds were pink. There was no central or peripheral cyanosis. His respiratory rate was 16 breaths per minute. His apex was not palpable. First and second heart sounds were normal. There was no murmur or gallop. There were no rales. Air entry was absent at left base. His electrocardiogram showed sinus rhythm with a pattern suggestive of left ventricular hypertrophy. His QT interval was mildly prolonged at 492 ms. There were no Q waves on the electric cardiogram. An echocardiogram done in August of this year showed mildly hypertrophied left ventricle with depressed left ventricular diastolic compliance. The left ventricular wall motion was borderline and ejection fraction was in the range of 50-55%. There was no significant valvulopathy. His chest x-ray showed large left pleural effusion. His lab data was noted. There was significant hypoalbuminemia and there was a large amount of protein in the urine. His BUN/creatinine were 52 and 2.1 mg percent and his GFR was depressed. His potassium level was normal. His CBC showed macrocytosis. His proBNP was elevated. Impression: Congestive cardiac failure, left ventricular diastolic and chronic. Hypertension with diabetes mellitus and possibly nephrotic syndrome. 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 (Poor dietary compliance and poor compliance with medications most likely due to his homeless status.) The patient is collecting 24-hour urine for estimation of proteinuria. In the meantime his present medical management appears to be appropriate have restarted him on metoprolol. Past Patient History - Infectious Disease Hx of Infectious Diseases: None - Tetanus Immunizations Tetanus Immunization: Unknown - Past Medical History & Family History Past Medical History?: Yes - Past Social History Smoking Status: Light Smoker < 10 Cigarettes Daily - CARDIAC Hx Congestive Heart Failure: Yes Hx Hypercholesterolemia: No Hx Hypertension: Yes Hx Peripheral Edema: Yes - PULMONARY Hx Chronic Obstructive Pulmonary Disease (COPD): No Hx Pneumonia: Yes - NEUROLOGICAL Hx Neurological Disorder: No - HEENT Hx HEENT Problems: No - RENAL Hx Chronic Kidney Disease: No - ENDOCRINE/METABOLIC Hx Hypothyroidism: No - HEMATOLOGICAL/ONCOLOGICAL Hx Human Immunodeficiency Virus (HIV): No - INTEGUMENTARY Hx Dermatological Problems: Yes - MUSCULOSKELETAL/RHEUMATOLOGICAL Hx Arthritis: No Hx Rheumatoid Arthritis: No - GASTROINTESTINAL Hx Gastrointestinal Disorders: No - GENITOURINARY/GYNECOLOGICAL Hx Genitourinary Disorders: No - PSYCHIATRIC Hx Anxiety: Yes Hx Bipolar Disorder: Yes Hx Depression: Yes - SURGICAL HISTORY Hx Surgeries: No - ANESTHESIA Hx Anesthesia: Yes Hx Anesthesia Reactions: No Hx Malignant Hyperthermia: No Meds Allergies/Adverse Reactions: Allergies Allergy/AdvReac Type Severity Reaction Status Date / Time No Known Allergies Allergy Verified 12/15/16 18:07 - Medications Medications: Current Medications Acetaminophen (Tylenol 325mg Tab) 650 mg PO Q4 PRN PRN Reason: Pain, Mild (1-3) Albuterol/Ipratropium (Duoneb 3 Mg/0.5 Mg (3 Ml) Ud) 3 ml INH RQ4 PRN PRN Reason: Shortness of Breath Amlodipine Besylate (Norvasc) 10 mg PO DAILY [facility] Aspirin (Ecotrin) 81 mg PO DAILY [facility] Last Admin: 03/07/17 10:17 Dose: 81 mg Clonidine HCl (Catapres) 0.1 mg PO BID [facility] Last Admin: 03/07/17 10:17 Dose: 0.1 mg Furosemide (Lasix) 40 mg IVP DAILY [facility] Last Admin: 03/06/17 09:19 Dose: 40 mg Glipizide (Glucotrol) 5 mg PO BID [facility] Last Admin: 03/06/17 16:42 Dose: 5 mg Heparin Sodium (Porcine) (Heparin) 5,000 units SC Q12 [facility] PRN Reason: Protocol Last Admin: 09/08/17 10:18 Dose: 5,000 units Hydralazine HCl (Apresoline) 25 mg PO TID [facility] Last Admin: 03/07/17 10:17 Dose: 25 mg Insulin Detemir (Levemir) 10 units SC HS [facility] Last Admin: 03/06/17 22:16 Dose: 10 u Insulin Human Lispro (Humalog) 0 units SC [facility] PRN Reason: Protocol Last Admin: 03/07/17 06:41 Dose: Not Given Lisinopril (Zestril) 40 mg PO DAILY [facility] Last Admin: 03/06/17 09:17 Dose: 40 mg Metoprolol Tartrate (Lopressor) 50 mg PO Q12 [facility] Nitroglycerin (Nitrostat Sl Tab) 0.4 mg SL Q5M PRN PRN Reason: Other Pentoxifylline (Pentoxil) 400 mg PO TID [facility] Last Admin: 03/07/17 10:18 Dose: 400 mg Spironolactone (Aldactone) 50 mg PO DAILY [facility] Last Admin: 03/07/17 10:17 Dose: 50 mg Results - Vital Signs Recent Vital Signs: Last Vital Signs Temp 97.8 F 03/07/17 08:00 Pulse 62 03/07/17 08:00 Resp 18 03/07/17 08:00 BP 164/64 H 03/07/17 08:00 Pulse Ox 98 03/07/17 08:00 - Labs Result Diagrams: 03/06/17 05:00 03/07/17 09:00 Labs: Laboratory Results - last 24 hr 03/06/17 03/06/17 03/06/17 11:07 16:09 21:56 ESR APTT Sodium Potassium Chloride Carbon Dioxide Anion Gap BUN Creatinine Est GFR ( Amer) Est GFR (Non-Af Amer) POC Glucose (mg/dL) 296 H 81 82 Random Glucose Calcium Total Bilirubin AST ALT Alkaline Phosphatase Total Protein Albumin Globulin Albumin/Globulin Ratio Urine Color Urine Clarity Urine pH Ur Specific [place] Urine Protein Urine Glucose (UA) Urine Ketones Urine Blood Urine Nitrate Urine Bilirubin Urine Urobilinogen Ur Leukocyte Esterase Urine RBC (Auto) Urine Microscopic WBC Ur Squamous Epith Cells Hyaline Casts Urine Yeast (Budding) 03/07/17 03/07/17 03/07/17 00:45 06:16 06:20 ESR 73 H APTT Sodium Potassium Chloride Carbon Dioxide Anion Gap BUN Creatinine Est GFR ( Amer) Est GFR (Non-Af Amer) POC Glucose (mg/dL) 136 H Random Glucose Calcium Total Bilirubin AST ALT Alkaline Phosphatase Total Protein Albumin Globulin Albumin/Globulin Ratio Urine Color Yellow Urine Clarity Slighty-cloudy Urine pH 6.0 Ur Specific [place] 1.014 Urine Protein >=500 Urine Glucose (UA) >=500 Urine Ketones Negative Urine Blood Small Urine Nitrate Positive H Urine Bilirubin Negative Urine Urobilinogen 0.2-1.0 Ur Leukocyte Esterase Neg Urine RBC (Auto) 6 H Urine Microscopic WBC 5 Ur Squamous Epith Cells < 1 Hyaline Casts 0-2 Urine Yeast (Budding) Mod H 03/07/17 03/07/17 06:20 09:00 ESR APTT 29.2 Sodium 139 Potassium 3.8 Chloride 110 H Carbon Dioxide 23 Anion Gap 10 BUN 52 H Creatinine 2.1 H Est GFR ( Amer) 38 Est GFR (Non-Af Amer) 32 POC Glucose (mg/dL) Random Glucose 74 L Calcium 8.0 L Total Bilirubin 0.2 AST 35 ALT 35 Alkaline Phosphatase 69 Total Protein 5.5 L Albumin 2.7 L Globulin 2.8 Albumin/Globulin Ratio 1.0 Urine Color Urine Clarity Urine pH Ur Specific [place] Urine Protein Urine Glucose (UA) Urine Ketones Urine Blood Urine Nitrate Urine Bilirubin Urine Urobilinogen Ur Leukocyte Esterase Urine RBC (Auto) Urine Microscopic WBC Ur Squamous Epith Cells Hyaline Casts Urine Yeast (Budding)
--- NOTE | 2017-03-07 11:36 | CARD ---
APPROVED REPORT EKG Measurement Heart [id number] <Conclusion> Normal sinus rhythm Normal ECG
--- NOTE | 2017-03-07 11:38 | CARD ---
APPROVED REPORT EKG Measurement Heart [id number] <Conclusion> Normal sinus rhythm Prolonged QT Abnormal ECG
--- NOTE | 2017-03-07 19:49 | CP.PCM.CON ---
History of Present Illness - History of Present Illness History of Present Illness: pt is seen and examined, full consult is dictated #[id number] Past Patient History - Infectious Disease Hx of Infectious Diseases: None - Tetanus Immunizations Tetanus Immunization: Unknown - Past Medical History & Family History Past Medical History?: Yes - Past Social History Smoking Status: Light Smoker < 10 Cigarettes Daily - CARDIAC Hx Congestive Heart Failure: Yes Hx Hypercholesterolemia: No Hx Hypertension: Yes Hx Peripheral Edema: Yes - PULMONARY Hx Chronic Obstructive Pulmonary Disease (COPD): No Hx Pneumonia: Yes - NEUROLOGICAL Hx Neurological Disorder: No - HEENT Hx HEENT Problems: No - RENAL Hx Chronic Kidney Disease: No - ENDOCRINE/METABOLIC Hx Hypothyroidism: No - HEMATOLOGICAL/ONCOLOGICAL Hx Human Immunodeficiency Virus (HIV): No - INTEGUMENTARY Hx Dermatological Problems: Yes - MUSCULOSKELETAL/RHEUMATOLOGICAL Hx Arthritis: No Hx Rheumatoid Arthritis: No - GASTROINTESTINAL Hx Gastrointestinal Disorders: No - GENITOURINARY/GYNECOLOGICAL Hx Genitourinary Disorders: No - PSYCHIATRIC Hx Anxiety: Yes Hx Bipolar Disorder: Yes Hx Depression: Yes - SURGICAL HISTORY Hx Surgeries: No - ANESTHESIA Hx Anesthesia: Yes Hx Anesthesia Reactions: No Hx Malignant Hyperthermia: No Meds Allergies/Adverse Reactions: Allergies Allergy/AdvReac Type Severity Reaction Status Date / Time No Known Allergies Allergy Verified 12/15/16 18:07 - Medications Medications: Current Medications Acetaminophen (Tylenol 325mg Tab) 650 mg PO Q4 PRN PRN Reason: Pain, Mild (1-3) Albuterol/Ipratropium (Duoneb 3 Mg/0.5 Mg (3 Ml) Ud) 3 ml INH RQ4 PRN PRN Reason: Shortness of Breath Amlodipine Besylate (Norvasc) 10 mg PO DAILY [facility] Aspirin (Ecotrin) 81 mg PO DAILY [facility] Last Admin: 03/07/17 10:17 Dose: 81 mg Atorvastatin Calcium (Lipitor) 40 mg PO DAILY [facility] Last Admin: 03/07/17 12:35 Dose: 40 mg Clonidine HCl (Catapres) 0.1 mg PO BID [facility] Last Admin: 03/07/17 17:10 Dose: 0.1 mg Furosemide (Lasix) 40 mg IVP DAILY [facility] Last Admin: 03/07/17 10:25 Dose: 40 mg Glipizide (Glucotrol) 5 mg PO BID [facility] Last Admin: 03/07/17 17:08 Dose: 5 mg Heparin Sodium (Porcine) (Heparin) 5,000 units SC Q12 [facility] PRN Reason: Protocol Last Admin: 03/07/17 10:18 Dose: 5,000 units Hydralazine HCl (Apresoline) 25 mg PO TID [facility] Last Admin: 03/07/17 17:10 Dose: 25 mg Insulin Detemir (Levemir) 10 units SC HS [facility] Last Admin: 03/06/17 22:16 Dose: 10 u Insulin Human Lispro (Humalog) 0 units SC ACHS [facility] PRN Reason: Protocol Last Admin: 03/07/17 17:06 Dose: Not Given Lisinopril (Zestril) 40 mg PO DAILY [facility] Last Admin: 03/07/17 10:19 Dose: 40 mg Metoprolol Tartrate (Lopressor) 50 mg PO Q12 [facility] Nitroglycerin (Nitrostat Sl Tab) 0.4 mg SL Q5M PRN PRN Reason: Other Pentoxifylline (Pentoxil) 400 mg PO TID [facility] Last Admin: 03/07/17 17:08 Dose: 400 mg Spironolactone (Aldactone) 50 mg PO DAILY [facility] Last Admin: 03/07/17 10:17 Dose: 50 mg Results - Vital Signs Recent Vital Signs: Last Vital Signs Temp 98.4 F 03/07/17 19:27 Pulse 69 03/07/17 19:27 Resp 20 03/07/17 19:27 BP 170/73 H 03/07/17 19:27 Pulse Ox 99 03/07/17 19:27 - Labs Result Diagrams: 03/06/17 05:00 03/07/17 09:00 Labs: Laboratory Results - last 24 hr 03/06/17 03/06/17 03/06/17 13:00 16:09 21:56 ESR APTT Sodium Potassium Chloride Carbon Dioxide Anion Gap BUN Creatinine Est GFR ( Amer) Est GFR (Non-Af Amer) POC Glucose (mg/dL) 81 82 Random Glucose Calcium Total Bilirubin AST ALT Alkaline Phosphatase Total Protein Albumin Globulin Albumin/Globulin Ratio Urine Color Urine Clarity Urine pH Ur Specific [place] Urine Protein Urine Glucose (UA) Urine Ketones Urine Blood Urine Nitrate Urine Bilirubin Urine Urobilinogen Ur Leukocyte Esterase Urine RBC (Auto) Urine Microscopic WBC Ur Squamous Epith Cells Hyaline Casts Urine Yeast (Budding) Urine Collection Time 24 Urine Total Volume 2200 Ur Protein 24 Hr Calc 9306.0 H Complement C3 Complement C4 03/07/17 03/07/17 03/07/17 00:45 06:16 06:20 ESR 73 H APTT Sodium Potassium Chloride Carbon Dioxide Anion Gap BUN Creatinine Est GFR ( Amer) Est GFR (Non-Af Amer) POC Glucose (mg/dL) 136 H Random Glucose Calcium Total Bilirubin AST ALT Alkaline Phosphatase Total Protein Albumin Globulin Albumin/Globulin Ratio Urine Color Yellow Urine Clarity Slighty-cloudy Urine pH 6.0 Ur Specific [place] 1.014 Urine Protein >=500 Urine Glucose (UA) >=500 Urine Ketones Negative Urine Blood Small Urine Nitrate Positive H Urine Bilirubin Negative Urine Urobilinogen 0.2-1.0 Ur Leukocyte Esterase Neg Urine RBC (Auto) 6 H Urine Microscopic WBC 5 Ur Squamous Epith Cells < 1 Hyaline Casts 0-2 Urine Yeast (Budding) Mod H Urine Collection Time Urine Total Volume Ur Protein 24 Hr Calc Complement C3 Complement C4 03/07/17 03/07/17 03/07/17 06:20 06:20 09:00 ESR APTT 29.2 Sodium 139 Potassium 3.8 Chloride 110 H Carbon Dioxide 23 Anion Gap 10 BUN 52 H Creatinine 2.1 H Est GFR ( Amer) 38 Est GFR (Non-Af Amer) 32 POC Glucose (mg/dL) Random Glucose 74 L Calcium 8.0 L Total Bilirubin 0.2 AST 35 ALT 35 Alkaline Phosphatase 69 Total Protein 5.5 L Albumin 2.7 L Globulin 2.8 Albumin/Globulin Ratio 1.0 Urine Color Urine Clarity Urine pH Ur Specific [place] Urine Protein Urine Glucose (UA) Urine Ketones Urine Blood Urine Nitrate Urine Bilirubin Urine Urobilinogen Ur Leukocyte Esterase Urine RBC (Auto) Urine Microscopic WBC Ur Squamous Epith Cells Hyaline Casts Urine Yeast (Budding) Urine Collection Time Urine Total Volume Ur Protein 24 Hr Calc Complement C3 100.0 Complement C4 51.7 H 03/07/17 03/07/17 10:52 16:03 ESR APTT Sodium Potassium Chloride Carbon Dioxide Anion Gap BUN Creatinine Est GFR ( Amer) Est GFR (Non-Af Amer) POC Glucose (mg/dL) 127 H 123 H Random Glucose Calcium Total Bilirubin AST ALT Alkaline Phosphatase Total Protein Albumin Globulin Albumin/Globulin Ratio Urine Color Urine Clarity Urine pH Ur Specific [place] Urine Protein Urine Glucose (UA) Urine Ketones Urine Blood Urine Nitrate Urine Bilirubin Urine Urobilinogen Ur Leukocyte Esterase Urine RBC (Auto) Urine Microscopic WBC Ur Squamous Epith Cells Hyaline Casts Urine Yeast (Budding) Urine Collection Time Urine Total Volume Ur Protein 24 Hr Calc Complement C3 Complement C4
[2017-03-07] MEDS: Insulin Detemir 100 Units/ml Inj SC SCH (21:41)
[2017-03-08 04:32] LABS: MICROALBUMIN 353.7 mg/dL
--- NOTE | 2017-03-08 04:46 | CON ---
DATE: RENAL CONSULTATION REQUESTED BY: Dr. Elizabeth Kelley REASON FOR CONSULTATION: Chronic kidney disease, proteinuria, and shortness of breath. Patient is located in room 410, bed 2. HISTORY OF PRESENT ILLNESS: Mr. Durand is a 66 years old elderly male with a past medical history significant for type 2 diabetes, hypertension, diastolic CHF, proteinuria, chronic kidney disease, who was admitted on 03/05/2017 with a chief complaints of intermittent right-sided chest pain and back pain for months, no radiating, worse when he takes deep breath and also complaints of shortness of breath on and off for the last 1 years status post thoracentesis in the past. Patient was also complaining of bilateral lower extremity swelling and occasional diarrhea and occasional nausea and vomiting x1. As per the patient, he ran out of his medication few days prior to the admission and also complains of bilateral leg swelling. Denies any recent weight loss or weight gain. Denies any dysuria or frequency. Denies any headache or dizziness. No chest pain. No palpitation. PAST MEDICAL HISTORY: Significant for type 2 diabetes, hypertension, diastolic CHF, chronic kidney disease, and proteinuria. PAST SURGICAL HISTORY: Denies. ALLERGIES: NO KNOWN DRUG ALLERGIES. SOCIAL HISTORY: The patient is a smoker. He smokes 1 pack for 3 to 4 days. No alcohol abuse. Denies any drug abuse. PERSONAL HISTORY: He is . CURRENT MEDICATIONS: Include Aldactone 50 mg p.o. daily, hydralazine 25 mg p.o. t.i.d., clonidine 0.1 mg p.o. b.i.d., DuoNeb inhaler, aspirin 81 mg daily, glipizide 5 mg p.o., subcutaneous heparin 5000 q. 12 hours, Humalog per sliding scale, Lasix 40 mg IV daily, Levemir 10 units subcutaneous at bedtime, Lipitor 40 mg p.o. daily, metoprolol 50 mg p.o. q. 12 hours, Nitrostat sublingual p.r.n., amlodipine 10 mg p.o. daily, Pentoxil 400 mg p.o. t.i.d., Tylenol, and lisinopril 40 mg p.o. daily. REVIEW OF SYSTEMS: Significant for right-sided chest pain and back pain and also the shortness of breath, bilateral leg swelling, occasional nausea and vomiting x1. All other review of systems are reviewed and are as per HPI. PHYSICAL EXAMINATION: VITAL SIGNS: Blood pressure 170/93, pulse 69, respirations 20, temperature 98.4, saturation 99%. Height 5 feet 5 inches and weight is 148 pounds. GENERAL: Mr. Durand is a 66 years old elderly male, moderately build, moderately nourished, not in acute distress. HEENT: Pupils normal, reactive to light and accommodation. Conjunctivae pink. Sclerae anicteric. Tongue is moist. Trachea is midline. LUNGS: Symmetric on both sides. Occasional basal crackles present and also slightly decreased breath sounds on the left side. CARDIOVASCULAR: [place] at the fifth intercostal space, midclavicular line. S1 and S2 audible. No murmur or gallop. ABDOMEN: Normal in appearance. Slightly protuberant. Soft and tympanic. Mild tenderness in the right upper quadrant region and also tenderness in the right infrascapular region and flank tenderness on the right side. No guarding. No rigidity. No hepatosplenomegaly. No abdominal bruit. CENTRAL NERVOUS SYSTEM: The patient is alert, awake, and oriented x3. Nonfocal. NEUROLOGIC: Cranial nerves II through XII grossly intact. Sensory and motor system is within normal limits. EXTREMITIES: No cyanosis. No clubbing. 1+ edema in both lower extremities. LABORATORY DATA: Include as follows; as of 03/07/2017, sodium 139, potassium 3.8, chloride 110, CO2 of 23, BUN 52, creatinine 2.1, glucose 127, calcium 8.0, total bili 0.2, AST 35, ALT 35, alkaline phosphatase 69, total protein 5.5, albumin is 2.7, and globulin is 2.8. As of 03/07/2017; urinalysis, yellow, slightly cloudy; pH of 6, and specific gravity of 1.014, protein more than 500, glucose more than 500, ketones negative, blood small, nitrites positive, bilirubin is negative, urobilinogen is 0.22 to 1.0. Leukocyte esterase negative and RBC 6 and WBC 5 and hyaline cast 0-2, yeast is moderate. C4 is 51.7. Other laboratory reports as of 03/06/2017; WBC 4.9, hemoglobin 10.1, hematocrit is 30.1, platelets 207. Sodium 137, potassium is 3.6, chloride 121, CO2 of 19, BUN 45, creatinine 2.0 and glucose 285. Troponin 0.024 and 0.022. A 24-hour urine collection volume is 2200 and 24-hour urine protein is 9306 mg. Alcohol level less than 10. Review of the labs from the previous admissions; hepatitis B and C serology was negative. ELIJAH was negative. Complement levels were normal. HIV was also negative. Urine immunofixation is positive for free kappa monoclonal band present as of 08/07/2016 and serum immunofixation, a faint band in IgA is present against dense polyclonal background while this may represent a reactive or inflammatory process. A developing plasma cell disorder cannot be excluded and clinical correlation is suggested. If indicated, repeat the immunofixation testing in 3 to 6 months. Echocardiogram as of 01/10/2016; ejection fraction about 55% and normal systolic function and concentric LVH and impaired diastolic relaxation. ASSESSMENT: In summary, Mr. Ladarius Ponce is 66 years old elderly male with history of type 2 diabetes, hypertension, diastolic congestive heart failure, proteinuria, chronic kidney disease. Repeat 24-hour urine protein about 9 g and previous immunofixation is positive for kappa light chains and the serum immunofixation, faint band in IgG. The GFR about 32 mL. 1. Renal failure. Chronic kidney disease, stage 3B. Etiology is not clear. Rule out diabetic nephropathy. Cannot rule out underlying multiple myeloma. 2. Hypertension. 3. Diabetes. 4. Nephrotic-range proteinuria. Cannot rule out nephrotic syndrome in view of proteinuria more than 9 g and urine serum protein, serum albumin is 2.7. PLAN: Repeat urine immunofixation, serum immunofixation and also follow up PTH intact level and beta-2 microglobulin levels also. Check urine culture to rule out any UTI. Consider hematology evaluation to rule out multiple myeloma and also check lipid profile. Continue gentle diuresis. We will follow with you. Thank you for allowing me to participate in your patient's care. Blas Trimble MD
[2017-03-08 04:57] LABS: CALCIUM 7.9 mg/dL (8.4-10.2); POTASSIUM 3.8 MMOL/L (3.6-5.0)
[2017-03-08] MEDS: Insulin Lispro (humaLOG) 100 Units/ml Inj SC SCH ×4 (06:36→21:27)
--- NOTE | 2017-03-08 09:42 | CP.PCM.PN ---
Subjective - Date & Time of Evaluation Date of Evaluation: 03/08/17 Time of Evaluation: 08:10 - Subjective Subjective: Patient seen and examined in telemetry this morning. Patient less short of breath, and cough improving. Still reporting right lower costal chest pain, reproducible with palpation. afebrile, BP still elevated Denies dizziness, blurry vision, abdominal pain, diarrheas. Objective - Vital Signs/Intake and Output Vital Signs (last 24 hours): Temp Pulse Resp BP Pulse Ox 98.3 F 61 18 188/88 H 99 03/08/17 08:15 03/08/17 08:43 03/08/17 08:15 03/08/17 08:43 03/08/17 08:15 - Medications Medications: Current Medications Acetaminophen (Tylenol 325mg Tab) 650 mg PO Q4 PRN PRN Reason: Pain, Mild (1-3) Albuterol/Ipratropium (Duoneb 3 Mg/0.5 Mg (3 Ml) Ud) 3 ml INH RQ4 PRN PRN Reason: Shortness of Breath Amlodipine Besylate (Norvasc) 10 mg PO DAILY [facility] Last Admin: 03/08/17 08:39 Dose: 10 mg Aspirin (Ecotrin) 81 mg PO DAILY [facility] Last Admin: 03/08/17 08:37 Dose: 81 mg Atorvastatin Calcium (Lipitor) 40 mg PO DAILY [facility] Last Admin: 03/08/17 08:39 Dose: 40 mg Clonidine HCl (Catapres) 0.1 mg PO BID [facility] Last Admin: 03/08/17 08:38 Dose: 0.1 mg Furosemide (Lasix) 40 mg IVP DAILY [facility] Last Admin: 03/08/17 08:41 Dose: 40 mg Glipizide (Glucotrol) 5 mg PO BID [facility] Last Admin: 03/08/17 08:37 Dose: 5 mg Heparin Sodium (Porcine) (Heparin) 5,000 units SC Q12 [facility] PRN Reason: Protocol Last Admin: 03/08/17 08:49 Dose: Not Given Hydralazine HCl (Apresoline) 25 mg PO TID [facility] Last Admin: 03/08/17 08:38 Dose: 25 mg Insulin Detemir (Levemir) 10 units SC HS [facility] Last Admin: 03/07/17 21:41 Dose: 10 u Insulin Human Lispro (Humalog) 0 units SC ACHS [facility] PRN Reason: Protocol Last Admin: 03/08/17 06:36 Dose: Not Given Lisinopril (Zestril) 40 mg PO DAILY [facility] Last Admin: 03/08/17 08:40 Dose: 40 mg Metoprolol Tartrate (Lopressor) 50 mg PO Q12 [facility] Last Admin: 03/08/17 08:43 Dose: 50 mg Nitroglycerin (Nitrostat Sl Tab) 0.4 mg SL Q5M PRN PRN Reason: Other Pentoxifylline (Pentoxil) 400 mg PO TID [facility] Last Admin: 03/08/17 08:39 Dose: 400 mg Spironolactone (Aldactone) 50 mg PO DAILY [facility] Last Admin: 03/08/17 08:39 Dose: 50 mg - Labs Labs: 03/06/17 05:00 03/08/17 04:10 PT 11.0 Seconds (9.8-13.1) 03/05/17 13:35 INR 1.1 (0.9-1.2) 03/05/17 13:35 APTT 29.2 Seconds (25.6-37.1) 03/07/17 06:20 - Constitutional Appears: No Acute Distress - ENT Exam ENT Exam: Mucous Membranes Moist - Respiratory Exam Respiratory Exam: Decreased Breath Sounds (lower lobes bilateral), Rales (to auscultation of right lower lobe), NORMAL BREATHING PATTERN. absent: Rhonchi, Wheezes, Respiratory Distress - Cardiovascular Exam Cardiovascular Exam: REGULAR RHYTHM, +S1, +S2 - GI/Abdominal Exam GI & Abdominal Exam: Soft, Normal Bowel Sounds. absent: Distended, Guarding, Rigid, Tenderness - Extremities Exam Extremities Exam: absent: Calf Tenderness Additional comments: edema in lower extremities pitting 2 + - Neurological Exam Neurological Exam: Alert, Awake, Oriented x3 Assessment and Plan - Assessment and Plan (Free Text) Assessment: 66 y/o homeless M with PMHx of DM type 2, HTN, Diastolic CHF ,now with CHF exacerbation and worsening renal function. Plan: Diastolic Congested Heart Failure exacerbation Improving clinically Possible a combination of diastolic with systolic CHF -c/w Furosemide 40 mg IVP daily -c/w home Lisinopril 40 mg PO daily -c/w Aldactone 50 mg PO daily -c/w Metoprolol T 50 mg BID CXR on 03/06/17: no significant interval change in left lower lobe atelectasis/ consolidation with moderate left pleural effusion. -f/u clinical status -Cardiology consult appreciated, Dr. Sebastian. Cardio agrees with current medical management, and recommends re-start Metoprolol -Possible toracentesis on Friday03/10/17 by IR for moderate left pleural effusion HTN still uncontrolled 2/2 no taking antihypertensive as outpatient -c/w Lisinopril 40 mg PO daily -c/w aspirin 81 mg PO daily -increased Hydralazine from 25 to 50 mg TID PO -c/w clonidine 0.1 mg BID PO -c/w Metoprolol T 50 mg BID -c/w Atorvastatin 40 mg daily -c/w amlodipine 10 mg PO daily f/u BP Costal pain could be 2/2 costochondritis -Give tylenol 650 mg Q6 deb x 2 and re-assess -CXR showed no significant osseous abnormalities -c/w tylenol as pain control; no NSAIDs because impaired renal function will monitor DM type 2 re-assume glipizide BID Stopped Metformin because GFR : 36 Insulin Lispro by sliding scale decreased Levemir from 10 to 5 units SC HS accucheck ACHS f/u BSL CKD stage 3 Noted in previous admission was mention by nephro in prior admission Diabetic nephropathy vs Chronic glomerulonephritis Cr: 2.0 today, BUN:55 protein 24 hr: 9 g in nephrotic range beta 2 microglob: elevated micro-alb ratio: elevated, creatinine clearance: decreased C3: normal, C4 elevated Nephro on board, f/u recommendations UTI Asymptomatic no leukocytosis UA positive for nitrate, WBC normal, neg leukocyte becky f/u final urine Cx, no growth in preliminary H/o of Lung nodule Chest CT scan on 09/2016 showed a 15 mm subpleural cavity in the superior segment of right lower lobe with the largest lateral nodule 9 mm. With 3 months f/u recommendations. Pt was supposed to f/u at [facility] with PMD, but did not. Will do recommended chest CT scan while in house. Chest CT on 03/06/17: Partial collapse of cavitary component of complex nodule/ mass. Stable solid component 9 x 12 mm DVT prophylaxis Heparin 5000 units Q12
[2017-03-08] MEDS: Insulin Detemir 100 Units/ml Inj SC SCH (21:26)
[2017-03-09 06:22] LABS: ACETONE None Detected; ETHANOL None Detected; METHANOL None Detected
[2017-03-09] MEDS: Insulin Lispro (humaLOG) 100 Units/ml Inj SC SCH ×4 (07:20→21:41)
[2017-03-09 09:03] LABS: MICROALBUMIN 208.7 mg/dL
--- NOTE | 2017-03-09 09:39 | CP.PCM.PN ---
Subjective - Date & Time of Evaluation Date of Evaluation: 03/09/17 Time of Evaluation: 08:15 - Subjective Subjective: 66 y/o M examined at beside. Pt reports feeling OK. Pt still complains of right lower costal chest pain which is described as mild but persistent. Pt w/ good appetite, tolerating PO. BP is elevated. NO overnight events. Pt denies fever, SOB, palpitations, abdominal pain, urinary complaints or change in bowel movement. Objective - Vital Signs/Intake and Output Vital Signs (last 24 hours): Temp Pulse Resp BP Pulse Ox 98.5 F 68 20 197/81 H 97 03/09/17 08:33 03/09/17 09:19 03/09/17 08:33 03/09/17 09:19 03/09/17 08:33 Intake and Output: 03/09/17 03/09/17 06:59 18:59 Intake Total 240 480 Output Total 50 550 Balance 190 -70 - Medications Medications: Current Medications Acetaminophen (Tylenol 325mg Tab) 650 mg PO Q4 PRN PRN Reason: Pain, Mild (1-3) Albuterol/Ipratropium (Duoneb 3 Mg/0.5 Mg (3 Ml) Ud) 3 ml INH RQ4 PRN PRN Reason: Shortness of Breath Amlodipine Besylate (Norvasc) 10 mg PO DAILY [facility] Last Admin: 03/08/17 08:39 Dose: 10 mg Aspirin (Ecotrin) 81 mg PO DAILY [facility] Last Admin: 03/09/17 09:17 Dose: 81 mg Atorvastatin Calcium (Lipitor) 40 mg PO DAILY [facility] Last Admin: 03/09/17 09:18 Dose: 40 mg Clonidine HCl (Catapres) 0.1 mg PO BID [facility] Last Admin: 03/09/17 09:16 Dose: 0.1 mg Furosemide (Lasix) 40 mg IVP DAILY [facility] Last Admin: 03/09/17 09:18 Dose: 40 mg Glipizide (Glucotrol) 5 mg PO BID [facility] Last Admin: 03/09/17 09:17 Dose: 5 mg Heparin Sodium (Porcine) (Heparin) 5,000 units SC Q12 [facility] PRN Reason: Protocol Last Admin: 03/09/17 09:17 Dose: 5,000 units Hydralazine HCl (Apresoline) 50 mg PO TID [facility] Last Admin: 03/09/17 09:16 Dose: 50 mg Insulin Detemir (Levemir) 5 units SC HS [facility] Last Admin: 03/08/17 21:26 Dose: 5 units Insulin Human Lispro (Humalog) 0 units SC ACHS [facility] PRN Reason: Protocol Last Admin: 03/09/17 07:20 Dose: Not Given Lisinopril (Zestril) 40 mg PO DAILY [facility] Last Admin: 03/09/17 09:19 Dose: 40 mg Metoprolol Tartrate (Lopressor) 50 mg PO Q12 [facility] Last Admin: 03/08/17 21:13 Dose: 50 mg Nitroglycerin (Nitrostat Sl Tab) 0.4 mg SL Q5M PRN PRN Reason: Other Pentoxifylline (Pentoxil) 400 mg PO TID [facility] Last Admin: 03/08/17 17:17 Dose: 400 mg Spironolactone (Aldactone) 50 mg PO DAILY [facility] Last Admin: 03/09/17 09:15 Dose: 50 mg - Labs Labs: 03/06/17 05:00 03/08/17 04:10 PT 11.0 Seconds (9.8-13.1) 03/05/17 13:35 INR 1.1 (0.9-1.2) 03/05/17 13:35 APTT 29.2 Seconds (25.6-37.1) 03/07/17 06:20 - Constitutional Appears: Well, No Acute Distress - Head Exam Head Exam: NORMAL INSPECTION - ENT Exam ENT Exam: Mucous Membranes Moist - Neck Exam Neck Exam: Full ROM - Respiratory Exam Respiratory Exam: Decreased Breath Sounds, Rales. absent: Wheezes, Respiratory Distress, Stridor - Cardiovascular Exam Cardiovascular Exam: REGULAR RHYTHM, +S1, +S2 Additional comments: edema in lower extremities pitting 2 + Assessment and Plan - Assessment and Plan (Free Text) Plan: 66 y/o homeless M with PMHx of DM type 2, HTN, Diastolic CHF ,now with CHF exacerbation and worsening renal function. 1. Diastolic Congested Heart Failure exacerbation - Clinically improving. - Possible a combination of diastolic with systolic CHF - c/w Furosemide 40 mg IVP daily - c/w home Lisinopril 40 mg PO daily - c/w Aldactone 50 mg PO daily - c/w Metoprolol T 50 mg BID - CXR on 03/06/17: no significant interval change in left lower lobe atelectasis/ consolidation with moderate left pleural effusion. - Will start NPO at midnight, stop Heparin tonight in preparation for Thoracocentesis. - Thoracocentesis on Friday03/10/17 by IR for moderate left pleural effusion - f/u clinical status - Cardiology on board. 2. HTN - Elevated still uncontrolled. Today: 197/81 - increased dosage of clonidine from 0.1 mg BID PO to 0.2 mg BID PO. - c/w Hydralazine 50 mg TID PO. (increased dosage yesterday from 25 mg TID PO) - c/w Lisinopril 40 mg PO daily - c/w aspirin 81 mg PO daily - c/w Metoprolol T 50 mg BID - c/w Atorvastatin 40 mg daily - c/w amlodipine 10 mg PO daily - f/u BP 3. Costal pain - could be 2/2 costochondritis - Give tylenol 650 mg Q6 deb x 2 and re-assess - CXR showed no significant osseous abnormalities - c/w Tylenol as pain control; no NSAIDs because impaired renal function - will monitor 4. DM type 2 - Resume glipizide BID - Stopped Metformin because GFR : 36 yesterday. - Insulin Lispro by sliding scale - Decreased Levemir from 10 to 5 units SC HS yesterday. - accucheck ACHS - f/u BSL 5. CKD stage 3 - Noted in previous admission - Diabetic nephropathy ruled out by nephrology. - Cr: 2.0; BUN:55 (on 12/06/16) - protein 24 hr: 9 g in nephrotic range (on 12/06/16) - beta 2 microglob: elevated - micro-alb ratio: elevated, creatinine clearance: decreased - C3: normal, C4 elevated - Nephro on board, Hematology consult was recommended to rule out Multiple Myeloma. - f/u recommendations 6. UTI - Asymptomatic - no leukocytosis - UA positive for nitrate, WBC normal, neg leukocyte becky - Urine culture "probable contamination." 7. H/o of Lung nodule - Chest CT scan on 09/2016 showed a 15 mm subpleural cavity in the superior segment of right lower lobe with the largest lateral nodule 9 mm. With 3 months f/u recommendations. - Pt was supposed to f/u at [facility] with PMD, but did not. Will do recommended chest CT scan while in house. - Chest CT on 03/06/17: Partial collapse of cavitary component of complex nodule/ mass. Stable solid component 9 x 12 mm 8. DVT prophylaxis - Heparin 5000 units Q12H -Will hold heparin tonight in preparation for thoracocentesis.
--- NOTE | 2017-03-09 11:57 | CP.PCM.PN ---
Subjective - Date & Time of Evaluation Date of Evaluation: 03/09/17 Time of Evaluation: 11:57 - Subjective Subjective: pt is een and examined, follow up consult is dictated #[id number] Objective - Vital Signs/Intake and Output Vital Signs (last 24 hours): Temp Pulse Resp BP Pulse Ox 98.5 F 68 20 197/81 H 97 03/09/17 08:33 03/09/17 09:19 03/09/17 08:33 03/09/17 09:19 03/09/17 08:33 Intake and Output: 03/09/17 03/09/17 06:59 18:59 Intake Total 240 480 Output Total 50 550 Balance 190 -70 - Medications Medications: Current Medications Acetaminophen (Tylenol 325mg Tab) 650 mg PO Q4 PRN PRN Reason: Pain, Mild (1-3) Albuterol/Ipratropium (Duoneb 3 Mg/0.5 Mg (3 Ml) Ud) 3 ml INH RQ4 PRN PRN Reason: Shortness of Breath Amlodipine Besylate (Norvasc) 10 mg PO DAILY [facility] Last Admin: 03/08/17 08:39 Dose: 10 mg Aspirin (Ecotrin) 81 mg PO DAILY [facility] Last Admin: 03/09/17 09:17 Dose: 81 mg Atorvastatin Calcium (Lipitor) 40 mg PO DAILY [facility] Last Admin: 03/09/17 09:18 Dose: 40 mg Clonidine HCl (Catapres) 0.1 mg PO BID [facility] Last Admin: 03/09/17 09:16 Dose: 0.1 mg Furosemide (Lasix) 40 mg IVP DAILY [facility] Last Admin: 03/09/17 09:18 Dose: 40 mg Glipizide (Glucotrol) 5 mg PO BID [facility] Last Admin: 03/09/17 09:17 Dose: 5 mg Heparin Sodium (Porcine) (Heparin) 5,000 units SC Q12 [facility] PRN Reason: Protocol Last Admin: 03/09/17 09:17 Dose: 5,000 units Hydralazine HCl (Apresoline) 50 mg PO TID [facility] Last Admin: 03/09/17 09:16 Dose: 50 mg Insulin Detemir (Levemir) 5 units SC HS [facility] Last Admin: 03/08/17 21:26 Dose: 5 units Insulin Human Lispro (Humalog) 0 units SC ACHS [facility] PRN Reason: Protocol Last Admin: 03/09/17 07:20 Dose: Not Given Lisinopril (Zestril) 40 mg PO DAILY [facility] Last Admin: 03/09/17 09:19 Dose: 40 mg Metoprolol Tartrate (Lopressor) 50 mg PO Q12 [facility] Last Admin: 03/08/17 21:13 Dose: 50 mg Nitroglycerin (Nitrostat Sl Tab) 0.4 mg SL Q5M PRN PRN Reason: Other Pentoxifylline (Pentoxil) 400 mg PO TID [facility] Last Admin: 03/08/17 17:17 Dose: 400 mg Spironolactone (Aldactone) 50 mg PO DAILY [facility] Last Admin: 03/09/17 09:15 Dose: 50 mg - Labs Labs: 03/06/17 05:00 03/08/17 04:10 PT 11.0 Seconds (9.8-13.1) 03/05/17 13:35 INR 1.1 (0.9-1.2) 03/05/17 13:35 APTT 29.2 Seconds (25.6-37.1) 03/07/17 06:20
[2017-03-09 12:47] LABS: KAPPA QUANTITATIVE 112 mg/dL (176-443); KAPPA/LAMDA QUANTITATIVE RATIO 1.58 (1.29-2.55); LAMBDA QUANTITATIVE 71 mg/dL (91-240)
--- NOTE | 2017-03-09 16:42 | PN ---
DATE: LOCATION: Room 663, bed 1. REQUESTED BY: Dr. Elizabeth Kelley. REASON FOR RENAL CONSULTATION: Chronic kidney disease, anemia, CHF for further evaluation and proteinuria. SUBJECTIVE: Mr. Durand is a 66 years old homeless male with a history of type 2 diabetes, hypertension, diastolic CHF, proteinuria, CKD was admitted with chief complaints of right-sided chest pain increasing with deep breath and shortness of breath for the last 1 year. The patient was also found to have elevated BUN and creatinine and also bilateral leg swelling. The patient is feeling slightly better but still complains of right infrascapular pain and tenderness. No fever. No cough. No shortness of breath. PHYSICAL EXAMINATION GENERAL: Mr. Durand is 66 years old elderly male, moderately built, moderately nourished, not in acute distress. VITAL SIGNS: Blood pressure 197/81, pulse 68, respirations 20, temperature 98.5, saturations 97%. Height 5 feet 5 inches and weight is 144 pounds. HEENT: Pupils are normal and reactive to light and accommodation. Conjunctivae pink. Sclerae anicteric. Tongue is moist. Trachea is midline. LUNGS: Symmetric on both sides. Bilateral breath sounds present. Occasional basal crackles present. CARDIOVASCULAR: [place] at the fifth intercostal space, midclavicular line, S1 and S2 audible. No murmur. No gallop. ABDOMEN: Normal in appearance. Soft and tympanic. No guarding. No rigidity. No hepatosplenomegaly. MARKETING PROJECT LEAD: The patient is alert, awake, and oriented x3. Nonfocal on examination. Cranial nerves II through XII grossly intact. Sensory and motor system is within normal limits. EXTREMITIES: No cyanosis. No clubbing. The patient has 1+ edema in both lower extremities. CURRENT MEDICATIONS: As follows, Aldactone 50 mg p.o. daily and hydralazine 50 mg p.o. t.i.d., metoprolol 50 mg p.o. q. 12 hours, amlodipine 10 mg daily, lisinopril 40 mg p.o. daily, Tylenol, pentoxifylline 400 mg p.o. t.i.d. and calcium with vitamin D 1 tablet daily, Nitrostat sublingual p.r.n., Lipitor 40 mg p.o. at bedtime, Levemir 5 units subcutaneous, Lasix 40 mg IV daily, Humalog for sliding scale, subcutaneous heparin 5000 unit q.12 hours, glipizide 5 mg b.i.d., aspirin and DuoNeb inhaler. LABORATORY DATA: Include as follows; as of 03/08/2017, sodium 139, potassium 3.8, chloride 112, CO2 23, BUN 55, creatinine 2.0, glucose 110, calcium 7.9. Beta-2 microglobulin is 12.5. ELIJAH is negative and complement level C3 is 100, C4 is 51.7 both are normal. Total kappa lambda ratio is 1.58 and kappa light chain is 112 and lambda light chain is 71. As of 03/06/2017, 24-hour urine protein is 9306 mg and 24-hour urine volume is 2200 mL. ASSESSMENT: Mr. Durand is a 66-year-old elderly male with a history of longstanding diabetes type 2, hypertension, congestive heart failure, nephrotic proteinuria on multiple diabetes medications. 1. Uncontrolled hypertension. Increase the hydralazine to 100 mg p.o. q.8 hours and titrate as needed and also increase Lasix to 40 mg q.12 hours. 2. Chronic kidney disease stage IV, most likely secondary to diabetic nephropathy, cannot rule out monoclonal gammopathy of undetermined significance. 3. Mild anemia. 4. Congestive heart failure. We will also check PTH intact level and restrict the fluids to 1 L per day. We will follow with you. Thank you for allowing me to participate in your patient's care. Blas Trimble MD
[2017-03-09] MEDS: Insulin Detemir 100 Units/ml Inj SC SCH (21:42)
[2017-03-10 07:36] LABS: BILIRUBIN,TOTAL 0.2 mg/dl (0.2-1.3); CALCIUM 8.2 mg/dL (8.4-10.2); POTASSIUM 4.3 MMOL/L (3.6-5.0); TOTAL PROTEIN 5.6 G/DL (6.3-8.2)
[2017-03-10] MEDS: Insulin Lispro (humaLOG) 100 Units/ml Inj SC SCH ×4 (07:37→22:24)
[2017-03-10 07:39] LABS: HEMATOCRIT 32.6 % (35.0-51.0); MEAN CELL VOLUME 94.7 fl (80.0-94.0); MEAN CORPUSCULAR HEMOGLOBIN 31.7 pg (27.0-31.0); MEAN CORPUSCULAR HGB CONC 33.5 g/dL (33.0-37.0); RED CELL DISTRIBUTION WIDTH 14.8 % (11.5-14.5); WHITE BLOOD COUNT 7.8 K/uL (4.8-10.8)
[2017-03-10 07:47] LABS: PARTIAL THROMBOPLASTIN TIME 32.3 Seconds (25.6-37.1)
[2017-03-10] MEDS: Calcium-Vit D 500 mg-200 Units Tab UD PO SCH (08:52)
--- NOTE | 2017-03-10 11:42 | CP.PCM.PN ---
Subjective - Date & Time of Evaluation Date of Evaluation: 03/10/17 Time of Evaluation: 07:25 - Subjective Subjective: Patient seen and examined in [facility] this morning. Patient still c/o shot of breath, but denies chest pain, N/V, abd pain, diarrheas. Afebrile, still with elevated BP Had an uneventful night Schedule for Thoracocentesis today Objective - Vital Signs/Intake and Output Vital Signs (last 24 hours): Temp Pulse Resp BP Pulse Ox 97.7 F 60 20 167/67 H 98 03/10/17 09:29 03/10/17 10:09 03/10/17 07:31 03/10/17 10:09 03/10/17 07:31 Intake and Output: 03/10/17 03/10/17 06:59 18:59 Output Total 200 Balance -200 - Medications Medications: Current Medications Acetaminophen (Tylenol 325mg Tab) 650 mg PO Q4 PRN PRN Reason: Pain, Mild (1-3) Albuterol/Ipratropium (Duoneb 3 Mg/0.5 Mg (3 Ml) Ud) 3 ml INH RQ4 PRN PRN Reason: Shortness of Breath Amlodipine Besylate (Norvasc) 10 mg PO DAILY [facility] Last Admin: 03/10/17 08:51 Dose: 10 mg Aspirin (Ecotrin) 81 mg PO DAILY [facility] Last Admin: 03/09/17 09:17 Dose: 81 mg Atorvastatin Calcium (Lipitor) 40 mg PO DAILY [facility] Last Admin: 03/10/17 08:51 Dose: 40 mg Calcium/Vitamin D (Oyster Shell Calcium/Vitamin D 500 Mg-200 Iu) 1 tab PO DAILY [facility] Last Admin: 03/10/17 08:52 Dose: 1 tab Clonidine HCl (Catapres) 0.2 mg PO BID [facility] Last Admin: 03/10/17 08:50 Dose: 0.2 mg Furosemide (Lasix) 40 mg IVP BID [facility] Last Admin: 03/10/17 08:51 Dose: Not Given Glipizide (Glucotrol) 5 mg PO BID [facility] Last Admin: 03/10/17 08:51 Dose: 5 mg Heparin Sodium (Porcine) (Heparin) 5,000 units SC Q12 [facility] PRN Reason: Protocol Last Admin: 03/09/17 09:17 Dose: 5,000 units Hydralazine HCl (Apresoline) 75 mg PO TID [facility] Last Admin: 03/10/17 08:50 Dose: 75 mg Insulin Detemir (Levemir) 5 units SC HS [facility] Last Admin: 03/09/17 21:42 Dose: 5 units Insulin Human Lispro (Humalog) 0 units SC ACHS [facility] PRN Reason: Protocol Last Admin: 03/10/17 07:37 Dose: Not Given Lisinopril (Zestril) 40 mg PO DAILY [facility] Last Admin: 03/10/17 08:52 Dose: Not Given Metoprolol Tartrate (Lopressor) 50 mg PO Q12 [facility] Last Admin: 03/10/17 08:51 Dose: Not Given Nitroglycerin (Nitrostat Sl Tab) 0.4 mg SL Q5M PRN PRN Reason: Other Pentoxifylline (Pentoxil) 400 mg PO TID [facility] Last Admin: 03/10/17 08:52 Dose: 400 mg Spironolactone (Aldactone) 50 mg PO DAILY [facility] Last Admin: 03/10/17 09:00 Dose: 50 mg - Labs Labs: 03/10/17 06:50 03/10/17 06:50 PT 10.2 Seconds (9.8-13.1) 03/10/17 06:50 INR 1.0 (0.9-1.2) 03/10/17 06:50 APTT 32.3 Seconds (25.6-37.1) 03/10/17 06:50 - Constitutional Appears: No Acute Distress - ENT Exam ENT Exam: Mucous Membranes Moist - Respiratory Exam Respiratory Exam: Decreased Breath Sounds (to auscultation of lower lobes), Rales (scant, diffuse), NORMAL BREATHING PATTERN - Cardiovascular Exam Cardiovascular Exam: REGULAR RHYTHM, +S1, +S2 - GI/Abdominal Exam GI & Abdominal Exam: Soft, Normal Bowel Sounds. absent: Distended, Guarding, Rigid, Tenderness - Extremities Exam Extremities Exam: Normal Inspection, Pedal Edema. absent: Calf Tenderness Additional comments: lower extremities edema pitting 2+ - Neurological Exam Neurological Exam: Alert, Awake, Oriented x3 Assessment and Plan - Assessment and Plan (Free Text) Assessment: 66 y/o homeless M with PMHx of DM type 2, HTN, Diastolic CHF ,now with CHF exacerbation and worsening renal function. Plan: 1. Diastolic Congested Heart Failure exacerbation - Clinically improving. - Possible a combination of diastolic with systolic CHF -increased frequency by Nephro Furosemide 40 mg IVP BID - c/w home Lisinopril 40 mg PO daily - c/w Aldactone 50 mg PO daily - c/w Metoprolol T 50 mg BID - CXR on 03/06/17: no significant interval change in left lower lobe atelectasis/ consolidation with moderate left pleural effusion. - Will start NPO at midnight, stop Heparin tonight in preparation for Thoracocentesis. - Thoracocentesis today 03/10/17 by IR for moderate left pleural effusion -f/u Pleural cultures, protein, glucose, cytology - f/u clinical status - Cardiology on board. 2. HTN - Elevated still uncontrolled. Consider renal artery stenosis - c/w clonidine 0.2 mg BID PO. - increased Hydralazine 75 mg TID PO as per Nephro ( titrate to 100 mg TID as needed) - c/w Lisinopril 40 mg PO daily - c/w aspirin 81 mg PO daily - c/w Metoprolol T 50 mg BID - c/w Atorvastatin 40 mg daily - c/w amlodipine 10 mg PO daily - f/u BP -F/u renal dupplex US 3. Costal pain - could be 2/2 costochondritis - Give tylenol 650 mg Q6 deb x 2 and re-assess - CXR showed no significant osseous abnormalities - c/w Tylenol as pain control; no NSAIDs because impaired renal function - will monitor 4. DM type 2 - Resume glipizide BID - Stopped Metformin because GFR : 36 yesterday. - Insulin Lispro by sliding scale -c/w Levemir 5 units SC HS . - accucheck ACHS - f/u BSL 5. CKD stage 3 - Noted in previous admission - Diabetic nephropathy ruled out by nephrology. - Cr: 2.0; BUN:55 (on 12/06/16) - protein 24 hr: 9 g in nephrotic range (on 12/06/16) - beta 2 microglob: elevated -Micro-alb ratio: elevated, creatinine clearance: decreased -C3: normal, C4 elevated -Nephro on board, f/u recommendations -Hematology consult to rule out Multiple Myeloma vs MGUS, f/u recommendations 6. UTI - Asymptomatic - no leukocytosis - UA positive for nitrate, WBC normal, neg leukocyte becky - Urine culture "probable contamination." 7. H/o of Lung nodule - Chest CT scan on 09/2016 showed a 15 mm subpleural cavity in the superior segment of right lower lobe with the largest lateral nodule 9 mm. With 3 months f/u recommendations. - Pt was supposed to f/u at [facility] with PMD, but did not. Will do recommended chest CT scan while in house. - Chest CT on 03/06/17: Partial collapse of cavitary component of complex nodule/ mass. Stable solid component 9 x 12 mm 8. DVT prophylaxis - Heparin 5000 units Q12H -Held Heparin last night in preparation for thoracocentesis.
[2017-03-10 11:48] LABS: CORTISOL AM 13.9 ug/dL (4.46-22.7)
[2017-03-10] MEDS ORDERED: Lidocaine 1% Inj (20ml) ONE (14:41)
--- NOTE | 2017-03-10 14:58 | PCM.SURG1 ---
Surgeon's Initial Post Op Note - Surgeon's Notes Surgeon: Antonio Rebolledo Political Science Chair: None Type of Anesthesia: Local Pre-Operative Diagnosis: Left pleural effusion Operative Findings: US showed large left effusion Post-Operative Diagnosis: Left pleural effusion Operation Performed: US guided left thoracentesis. Specimen/Specimens Removed: 1100 cc of clear yellow fluid Estimated Blood Loss: EBL {In ML}: 0 Blood Products Given: N/A Drains Used: No Drains Post-Op Condition: Good Date of Surgery/Procedure: 03/10/17 Time of Surgery/Procedure: 14:55
[2017-03-10 15:21] LABS: BODY FLUID TYPE PLEURAL/THORACENTESI
[2017-03-10 15:32] LABS: LDH,BODY FLUID 212 IU (NONE ESTABLISHED)
--- NOTE | 2017-03-10 15:44 | RAD ---
PROCEDURE: CHEST RADIOGRAPH, 1 VIEW HISTORY: Status post left thoracentesis. COMPARISON: None available. FINDINGS: LUNGS: Improved aeration of the left lung following thoracentesis. PLEURA: Substantial decrease left pleural effusion. No pneumothorax CARDIOVASCULAR: No radiographic findings to suggest acute or significant cardiovascular disease. OSSEOUS STRUCTURES: No significant abnormalities. VISUALIZED UPPER ABDOMEN: Normal. OTHER FINDINGS: None. IMPRESSION: No adverse findings/ no pneumothorax following left thoracentesis. Improved aeration of the left lung.
[2017-03-10 16:28] LABS: BF GROSS APPEARANCE CLEAR (CLEAR)
--- NOTE | 2017-03-10 20:17 | CP.PCM.PN ---
Subjective - Date & Time of Evaluation Date of Evaluation: 03/10/17 Time of Evaluation: 20:17 - Subjective Subjective: pt is seen and examined, follow up consult is dictated #[id number] Objective - Vital Signs/Intake and Output Vital Signs (last 24 hours): Temp Pulse Resp BP Pulse Ox 96.4 F L 60 20 188/74 H 98 03/10/17 16:00 03/10/17 16:01 03/10/17 16:00 03/10/17 16:03 03/10/17 16:00 - Medications Medications: Current Medications Acetaminophen (Tylenol 325mg Tab) 650 mg PO Q4 PRN PRN Reason: Pain, Mild (1-3) Last Admin: 03/10/17 15:38 Dose: 650 mg Albuterol/Ipratropium (Duoneb 3 Mg/0.5 Mg (3 Ml) Ud) 3 ml INH RQ4 PRN PRN Reason: Shortness of Breath Amlodipine Besylate (Norvasc) 10 mg PO DAILY [facility] Last Admin: 03/10/17 08:51 Dose: 10 mg Aspirin (Ecotrin) 81 mg PO DAILY [facility] Last Admin: 03/10/17 16:02 Dose: 81 mg Atorvastatin Calcium (Lipitor) 40 mg PO DAILY [facility] Last Admin: 03/10/17 08:51 Dose: 40 mg Calcium/Vitamin D (Oyster Shell Calcium/Vitamin D 500 Mg-200 Iu) 1 tab PO DAILY [facility] Last Admin: 03/10/17 08:52 Dose: 1 tab Clonidine HCl (Catapres) 0.2 mg PO BID [facility] Last Admin: 03/10/17 16:01 Dose: 0.2 mg Furosemide (Lasix) 40 mg IVP BID [facility] Last Admin: 03/10/17 16:03 Dose: 40 mg Glipizide (Glucotrol) 5 mg PO BID [facility] Last Admin: 03/10/17 16:02 Dose: 5 mg Heparin Sodium (Porcine) (Heparin) 5,000 units SC Q12 [facility] PRN Reason: Protocol Last Admin: 03/09/17 09:17 Dose: 5,000 units Hydralazine HCl (Apresoline) 75 mg PO TID [facility] Last Admin: 03/10/17 16:01 Dose: 75 mg Insulin Detemir (Levemir) 5 units SC HS [facility] Last Admin: 03/09/17 21:42 Dose: 5 units Insulin Human Lispro (Humalog) 0 units SC ACHS [facility] PRN Reason: Protocol Last Admin: 03/10/17 16:02 Dose: Not Given Lisinopril (Zestril) 40 mg PO DAILY [facility] Last Admin: 03/10/17 08:52 Dose: Not Given Metoprolol Tartrate (Lopressor) 50 mg PO Q12 [facility] Last Admin: 03/10/17 08:51 Dose: Not Given Nitroglycerin (Nitrostat Sl Tab) 0.4 mg SL Q5M PRN PRN Reason: Other Pentoxifylline (Pentoxil) 400 mg PO TID [facility] Last Admin: 03/10/17 16:01 Dose: 400 mg Spironolactone (Aldactone) 50 mg PO DAILY [facility] Last Admin: 03/10/17 09:00 Dose: 50 mg - Labs Labs: 03/10/17 06:50 03/10/17 06:50 PT 10.2 Seconds (9.8-13.1) 03/10/17 06:50 INR 1.0 (0.9-1.2) 03/10/17 06:50 APTT 32.3 Seconds (25.6-37.1) 03/10/17 06:50
[2017-03-10] MEDS: Insulin Detemir 100 Units/ml Inj SC SCH (22:27)
--- NOTE | 2017-03-11 01:23 | PN ---
DATE: FOLLOWUP RENAL CONSULTATION LOCATION: Patient is located in room 633, bed 1. REQUESTING DOCTOR: Dr. Elizabeth Kelley. REASON FOR FOLLOWUP: Chronic kidney disease and further evaluation. SUBJECTIVE: Mr. Durand is a 66 years old elderly male with history of longstanding hypertension, diabetes, chronic kidney disease, proteinuria, CHF was admitted with bilateral leg swelling, shortness of breath and right-sided chest pain. Patient is feeling slightly better today, not in acute distress. Denies any nausea, vomiting, diarrhea and denies any fever, cough. Less pain on the right side today. PHYSICAL EXAMINATION: GENERAL: Mr. Ladarius Ponce is a 66 years old elderly male moderately build, moderately nourished, not in acute distress. VITAL SIGNS: Blood pressure 188/74, pulse 64, respirations 20, temperature 96.4, saturation 98%, height 5 feet 5 inches and weight is 140 pounds. HEENT: Pupils normally reactive to light and accommodation. Conjunctiva are pink. Sclerae anicteric. Tongue is moist. Trachea is midline. LUNGS: Symmetric on both sides. Bilateral breath sounds present. Occasional basal crackles present. CARDIOVASCULAR: [place] at the fifth intercostal space, midclavicular line, S1 and S2 audible. No murmur. No gallop. ABDOMEN: Normal in appearance. Soft and tympanic. No guarding. No rigidity. No hepatosplenomegaly. CLINICAL ASSESSMENT MANAGER: The patient is alert, awake, and oriented x3. Nonfocal on examination. Cranial nerves II through XII grossly intact. Sensory and motor system is within normal limits. EXTREMITIES: No cyanosis. No clubbing. The patient has 1+ edema in both lower extremities and also chronic skin changes present in both lower extremities. CURRENT MEDICATIONS: Include as follows; Aldactone 50 mg p.o. daily, hydralazine 75 mg p.o. t.i.d., Clonidine 0.2 mg p.o. b.i.d., and aspirin 81 mg daily, Glipizide 5 mg b.i.d., subcutaneous 5000 q. 12 hours, Lasix 40 mg IV b.i.d., Lipitor 40 mg daily, Lopressor 50 mg q. 12 hours, Nitrostat 0.4 mg sublingual p.r.n., calcium with vitamin D one tablet p.o.daily, Pentoxil 400 mg p.o. t.i.d., Tylenol, lisinopril 40 mg p.o. daily. LABORATORY DATA: His current laboratory data include as follows as of 03/10/2017; WBC 7.8, hemoglobin 10.9, hematocrit is 32.6, platelets 236, PT 10.2, PTT 32.3. Sodium 140, potassium 4.3, chloride 114, CO2 of 21, BUN 62, creatinine 1.8, glucose 109, calcium 8.2, total bilirubin 0.8, AST 21, ALT 34, alkaline phosphatase 71, and proBNP 3810, total protein 5.6, albumin 2.8, triglycerides 89 and cholesterol is 198, LDL is 102, HDL 53, serum cortisol 13.9. Pleural fluid clear and WBC 45, RBC is 78. Glucose now 174. Total protein less than 2, LDH 212, straw color. ASSESSMENT: In summary, Mr. Durand is a 66 years old elderly male with history of hypertension, diabetes, chronic kidney disease, proteinuria, congestive heart failure with increase in BUN and creatinine. 1. Chronic kidney disease, stage III most likely secondary to diabetic nephropathy cannot rule out MGUS. 2. Congestive heart failure. 3. Uncontrolled hypertension. PLAN: Continue Lasix and titrate hydralazine and metoprolol as tolerated. Restrictive fluids to go 1500 mL per day. We will follow with you. Thank you for allowing me to participate in your patient's care and concern daily weights. Blas Trimble MD
[2017-03-11] MEDS: Insulin Lispro (humaLOG) 100 Units/ml Inj SC SCH ×4 (06:43→21:30)
--- NOTE | 2017-03-11 07:18 | CP.PCM.CON ---
History of Present Illness - History of Present Illness History of Present Illness: 66 year old male with a history of DM, HTN, CHF, admitted with chest pain, LE swelling, diarrhea, found to be in renal failure with anemia, lung nodule, pleural effusion. The patient reports to progressive chest pain and shortness of breath. He also has been experiencing watery diarrhea. He denies abnormal bleeding and bruising. He is s/p thoracentesis and reports to breathing better. Past medical history: DM, HTN, CHF Past surgical history: None Family history: Father had throat cancer Social history: Former tobacco abuse, denies alcohol and illicit drug use. Allergies: NKA Review of systems: All remaining review of systems including HEENT, cardiovascular, respiratory, gastrointestinal, genitourinary, musculoskeletal, dermatologic, neurologic, and psychiatric are negative unless mentioned in the HPI. Past Patient History - Infectious Disease Hx of Infectious Diseases: None - Tetanus Immunizations Tetanus Immunization: Unknown - Past Medical History & Family History Past Medical History?: Yes - Past Social History Smoking Status: Light Smoker < 10 Cigarettes Daily - CARDIAC Hx Cardiac Disorders: Yes Hx Congestive Heart Failure: Yes Hx Hypercholesterolemia: No Hx Hypertension: Yes - PULMONARY Hx Chronic Obstructive Pulmonary Disease (COPD): No - NEUROLOGICAL HX Cerebrovascular Accident: No - HEENT Hx HEENT Problems: No - RENAL Hx Renal Failure: No - ENDOCRINE/METABOLIC Hx Diabetes Mellitus Type 1: No Hx Diabetes Mellitus Type 2: Yes Hx Hypothyroidism: No - HEMATOLOGICAL/ONCOLOGICAL Hx Human Immunodeficiency Virus (HIV): No - INTEGUMENTARY Hx Dermatological Problems: Yes - MUSCULOSKELETAL/RHEUMATOLOGICAL Hx Arthritis: No Hx Rheumatoid Arthritis: No - GASTROINTESTINAL Hx Gastrointestinal Disorders: No - GENITOURINARY/GYNECOLOGICAL Hx Genitourinary Disorders: No - PSYCHIATRIC Hx Anxiety: Yes Hx Bipolar Disorder: Yes Hx Depression: Yes - SURGICAL HISTORY Hx Surgeries: No - ANESTHESIA Hx Anesthesia: Yes Hx Anesthesia Reactions: No Hx Malignant Hyperthermia: No Meds Allergies/Adverse Reactions: Allergies Allergy/AdvReac Type Severity Reaction Status Date / Time No Known Allergies Allergy Verified 12/15/16 18:07 - Medications Medications: Current Medications Acetaminophen (Tylenol 325mg Tab) 650 mg PO Q4 PRN PRN Reason: Pain, Mild (1-3) Last Admin: 03/10/17 15:38 Dose: 650 mg Albuterol/Ipratropium (Duoneb 3 Mg/0.5 Mg (3 Ml) Ud) 3 ml INH RQ4 PRN PRN Reason: Shortness of Breath Amlodipine Besylate (Norvasc) 10 mg PO DAILY [facility] Last Admin: 03/10/17 08:51 Dose: 10 mg Aspirin (Ecotrin) 81 mg PO DAILY [facility] Last Admin: 03/10/17 16:02 Dose: 81 mg Atorvastatin Calcium (Lipitor) 40 mg PO DAILY [facility] Last Admin: 03/10/17 08:51 Dose: 40 mg Calcium/Vitamin D (Oyster Shell Calcium/Vitamin D 500 Mg-200 Iu) 1 tab PO DAILY [facility] Last Admin: 03/10/17 08:52 Dose: 1 tab Clonidine HCl (Catapres) 0.2 mg PO BID [facility] Last Admin: 03/10/17 16:01 Dose: 0.2 mg Furosemide (Lasix) 40 mg IVP BID [facility] Last Admin: 03/10/17 16:03 Dose: 40 mg Glipizide (Glucotrol) 5 mg PO BID [facility] Last Admin: 03/10/17 16:02 Dose: 5 mg Heparin Sodium (Porcine) (Heparin) 5,000 units SC Q12 [facility] PRN Reason: Protocol Last Admin: 03/09/17 09:17 Dose: 5,000 units Hydralazine HCl (Apresoline) 75 mg PO TID [facility] Last Admin: 03/10/17 16:01 Dose: 75 mg Insulin Detemir (Levemir) 5 units SC HS [facility] Last Admin: 03/10/17 22:27 Dose: 5 units Insulin Human Lispro (Humalog) 0 units SC ACHS [facility] PRN Reason: Protocol Last Admin: 03/11/17 06:43 Dose: Not Given Lisinopril (Zestril) 40 mg PO DAILY [facility] Last Admin: 03/10/17 08:52 Dose: Not Given Metoprolol Tartrate (Lopressor) 50 mg PO Q12 [facility] Last Admin: 03/10/17 20:55 Dose: 50 mg Nitroglycerin (Nitrostat Sl Tab) 0.4 mg SL Q5M PRN PRN Reason: Other Pentoxifylline (Pentoxil) 400 mg PO TID [facility] Last Admin: 03/10/17 16:01 Dose: 400 mg Spironolactone (Aldactone) 50 mg PO DAILY [facility] Last Admin: 03/10/17 09:00 Dose: 50 mg Physical Exam - Head Exam Head Exam: ATRAUMATIC - Eye Exam Eye Exam: Normal appearance - ENT Exam ENT Exam: Mucous Membranes Dry - Respiratory Exam Respiratory Exam: NORMAL BREATHING PATTERN - Cardiovascular Exam Cardiovascular Exam: +S1, +S2 - GI/Abdominal Exam GI & Abdominal Exam: Normal Bowel Sounds - Extremities Exam Extremities exam: Positive for: pedal edema - Neurological Exam Neurological exam: Oriented x3 - Psychiatric Exam Psychiatric exam: Normal Affect, Normal Mood - Skin Skin Exam: Warm Results - Vital Signs Recent Vital Signs: Last Vital Signs Temp 98.5 F 03/10/17 23:59 Pulse 60 03/10/17 23:59 Resp 18 03/10/17 23:59 BP 166/79 H 03/10/17 23:59 Pulse Ox 97 03/10/17 23:59 - Labs Result Diagrams: 03/10/17 06:50 03/10/17 06:50 Labs: Laboratory Results - last 24 hr 03/06/17 03/07/17 03/10/17 05:00 06:20 06:50 WBC 7.8 D RBC 3.45 L Hgb 10.9 L Hct 32.6 L MCV 94.7 H MCH 31.7 H MCHC 33.5 RDW 14.8 H Plt Count 236 PT INR APTT Sodium Potassium Chloride Carbon Dioxide Anion Gap BUN Creatinine Est GFR ( Amer) Est GFR (Non-Af Amer) POC Glucose (mg/dL) Random Glucose Calcium Total Bilirubin AST ALT Alkaline Phosphatase NT-Pro-B Natriuret Pep Total Protein Albumin Globulin Albumin/Globulin Ratio Triglycerides Cholesterol LDL Cholesterol Direct HDL Cholesterol PTH Intact Whole Molec 123 H Cortisol AM Sample Fluid Source Fluid Appearance Fluid WBC Fluid RBC Fluid Tot Cell Count Fluid Neutrophils Fluid Lymphocytes Fld Monocyte/Macrophag Fluid Glucose Fluid Total Protein Fluid LDH Fluid Comment Toxicology Panel see note 03/10/17 03/10/17 03/10/17 06:50 06:50 10:48 WBC RBC Hgb Hct MCV MCH MCHC RDW Plt Count PT 10.2 INR 1.0 APTT 32.3 Sodium 140 Potassium 4.3 Chloride 114 H Carbon Dioxide 21 L Anion Gap 9 L BUN 62 H Creatinine 1.8 H Est GFR ( Amer) 46 Est GFR (Non-Af Amer) 38 POC Glucose (mg/dL) 290 H Random Glucose 109 Calcium 8.2 L Total Bilirubin 0.2 AST 21 ALT 34 Alkaline Phosphatase 71 NT-Pro-B Natriuret Pep 3810 H Total Protein 5.6 L Albumin 2.8 L Globulin 2.8 Albumin/Globulin Ratio 1.0 Triglycerides 89 D Cholesterol 198 LDL Cholesterol Direct 102 HDL Cholesterol 53 PTH Intact Whole Molec Cortisol AM Sample 13.9 Fluid Source Fluid Appearance Fluid WBC Fluid RBC Fluid Tot Cell Count Fluid Neutrophils Fluid Lymphocytes Fld Monocyte/Macrophag Fluid Glucose Fluid Total Protein Fluid LDH Fluid Comment Toxicology Panel 03/10/17 03/10/17 03/10/17 15:00 15:00 15:47 WBC RBC Hgb Hct MCV MCH MCHC RDW Plt Count PT INR APTT Sodium Potassium Chloride Carbon Dioxide Anion Gap BUN Creatinine Est GFR ( Amer) Est GFR (Non-Af Amer) POC Glucose (mg/dL) 144 H Random Glucose Calcium Total Bilirubin AST ALT Alkaline Phosphatase NT-Pro-B Natriuret Pep Total Protein Albumin Globulin Albumin/Globulin Ratio Triglycerides Cholesterol LDL Cholesterol Direct HDL Cholesterol PTH Intact Whole Molec Cortisol AM Sample Fluid Source Pleural/thoracentesi Fluid Appearance Clear Fluid WBC 45.0 Fluid RBC 78.0 H Fluid Tot Cell Count 10 H Fluid Neutrophils 40.0 H Fluid Lymphocytes 40.0 H Fld Monocyte/Macrophag 20 H Fluid Glucose 174 Fluid Total Protein < 2.0 Fluid LDH 212 Fluid Comment Straw Toxicology Panel 03/10/17 03/11/17 21:52 05:17 WBC RBC Hgb Hct MCV MCH MCHC RDW Plt Count PT INR APTT Sodium Potassium Chloride Carbon Dioxide Anion Gap BUN Creatinine Est GFR ( Amer) Est GFR (Non-Af Amer) POC Glucose (mg/dL) 211 H 133 H Random Glucose Calcium Total Bilirubin AST ALT Alkaline Phosphatase NT-Pro-B Natriuret Pep Total Protein Albumin Globulin Albumin/Globulin Ratio Triglycerides Cholesterol LDL Cholesterol Direct HDL Cholesterol PTH Intact Whole Molec Cortisol AM Sample Fluid Source Fluid Appearance Fluid WBC Fluid RBC Fluid Tot Cell Count Fluid Neutrophils Fluid Lymphocytes Fld Monocyte/Macrophag Fluid Glucose Fluid Total Protein Fluid LDH Fluid Comment Toxicology Panel Assessment & Plan (1) Anemia Assessment and Plan: check ferritin, retic count, b12 folate, FOBT agree with ruling out monoclonal protein given renal failure anemia of CKD Status: Chronic (2) Pleural effusion Assessment and Plan: s/p thoracentesis f/u cytology Status: Acute (3) Lung nodule Assessment and Plan: ?infectious ?malignant recommend biopsy if accessible Thank you for this interesting consult. Status: Acute
[2017-03-11] MEDS: Calcium-Vit D 500 mg-200 Units Tab UD PO SCH ×2 (08:34→10:39)
[2017-03-11 10:01] LABS: CALCIUM 8.2 mg/dL (8.4-10.2); POTASSIUM 4.2 MMOL/L (3.6-5.0)
--- NOTE | 2017-03-11 10:04 | CP.PCM.PN ---
Subjective - Date & Time of Evaluation Date of Evaluation: 03/11/17 Time of Evaluation: 07:00 - Subjective Subjective: Patient seen and examined in [facility] this morning. Less SOB than yesterday, still c/o right lower costal chest pain reproducible with self-palpation Denies chills, palpitations, abdominal pain, diarrheas, dizziness. Afebrile, still with elevated SBP NPO this morning for dupplex renal ultrasound Objective - Vital Signs/Intake and Output Vital Signs (last 24 hours): Temp Pulse Resp BP Pulse Ox 97.9 F 70 20 152/68 H 97 03/11/17 07:26 03/11/17 07:26 03/11/17 07:26 03/11/17 07:26 03/11/17 07:26 - Medications Medications: Current Medications Acetaminophen (Tylenol 325mg Tab) 650 mg PO Q4 PRN PRN Reason: Pain, Mild (1-3) Last Admin: 03/10/17 15:38 Dose: 650 mg Albuterol/Ipratropium (Duoneb 3 Mg/0.5 Mg (3 Ml) Ud) 3 ml INH RQ4 PRN PRN Reason: Shortness of Breath Amlodipine Besylate (Norvasc) 10 mg PO DAILY [facility] Last Admin: 03/11/17 08:33 Dose: Not Given Aspirin (Ecotrin) 81 mg PO DAILY [facility] Last Admin: 03/11/17 08:32 Dose: Not Given Atorvastatin Calcium (Lipitor) 40 mg PO DAILY [facility] Last Admin: 03/11/17 08:33 Dose: Not Given Calcium/Vitamin D (Oyster Shell Calcium/Vitamin D 500 Mg-200 Iu) 1 tab PO DAILY [facility] Last Admin: 03/11/17 08:34 Dose: Not Given Clonidine HCl (Catapres) 0.2 mg PO BID [facility] Last Admin: 03/11/17 08:32 Dose: Not Given Furosemide (Lasix) 40 mg IVP BID [facility] Last Admin: 03/11/17 08:35 Dose: Not Given Glipizide (Glucotrol) 5 mg PO BID [facility] Last Admin: 03/11/17 08:32 Dose: Not Given Heparin Sodium (Porcine) (Heparin) 5,000 units SC Q12 [facility] PRN Reason: Protocol Last Admin: 03/09/17 09:17 Dose: 5,000 units Hydralazine HCl (Apresoline) 75 mg PO TID [facility] Last Admin: 03/11/17 08:32 Dose: Not Given Insulin Detemir (Levemir) 5 units SC HS [facility] Last Admin: 03/10/17 22:27 Dose: 5 units Insulin Human Lispro (Humalog) 0 units SC ACHS [facility] PRN Reason: Protocol Last Admin: 03/11/17 06:43 Dose: Not Given Lisinopril (Zestril) 40 mg PO DAILY [facility] Last Admin: 03/11/17 08:34 Dose: Not Given Metoprolol Tartrate (Lopressor) 50 mg PO Q12 [facility] Last Admin: 03/11/17 08:33 Dose: Not Given Nitroglycerin (Nitrostat Sl Tab) 0.4 mg SL Q5M PRN PRN Reason: Other Pentoxifylline (Pentoxil) 400 mg PO TID [facility] Last Admin: 03/11/17 08:34 Dose: Not Given Spironolactone (Aldactone) 50 mg PO DAILY [facility] Last Admin: 03/11/17 08:32 Dose: Not Given - Labs Labs: 03/10/17 06:50 03/10/17 06:50 PT 10.2 Seconds (9.8-13.1) 03/10/17 06:50 INR 1.0 (0.9-1.2) 03/10/17 06:50 APTT 32.3 Seconds (25.6-37.1) 03/10/17 06:50 - Constitutional Appears: No Acute Distress - ENT Exam ENT Exam: Mucous Membranes Moist - Respiratory Exam Respiratory Exam: Decreased Breath Sounds (lower lobes bilateral, however improving), NORMAL BREATHING PATTERN Additional comments: Crackles to auscultation of right lower lobe - Cardiovascular Exam Cardiovascular Exam: REGULAR RHYTHM, +S1, +S2 - GI/Abdominal Exam GI & Abdominal Exam: Soft, Normal Bowel Sounds. absent: Distended, Guarding, Rigid, Tenderness - Extremities Exam Extremities Exam: Pedal Edema. absent: Calf Tenderness Additional comments: bilateral lower extremities edema pitting 2+ - Neurological Exam Neurological Exam: Alert, Awake, Oriented x3 Assessment and Plan - Assessment and Plan (Free Text) Assessment: 66 y/o homeless M with PMHx of DM type 2, HTN, Diastolic CHF ,now with CHF exacerbation and worsening renal function. Plan: Diastolic Congested Heart Failure exacerbation - Clinically improving. - Possible a combination of diastolic with systolic CHF -c/w Nephro Furosemide 40 mg IVP BID - c/w home Lisinopril 40 mg PO daily - c/w Aldactone 50 mg PO daily - c/w Metoprolol T 50 mg BID - CXR on 03/06/17: no significant interval change in left lower lobe atelectasis/ consolidation with moderate left pleural effusion. - s/p Thoracocentesis on 03/10/17 by IR for moderate left pleural effusion - Pleural fluid removed 1100 cc of clear yellow fluid. Cultures: gram stain no growth, few polymorphonuclear WBC,no fungal elements. protein, glucose, cytology - f/u clinical status - Cardiology on board, Dr. Sebastian. HTN - Elevated still uncontrolled. Consider renal artery stenosis - c/w clonidine 0.2 mg BID PO. -c/w Hydralazine 75 mg TID PO as per Nephro ( titrate to 100 mg TID as needed) - c/w Lisinopril 40 mg PO daily - c/w aspirin 81 mg PO daily - c/w Metoprolol T 50 mg BID - c/w Atorvastatin 40 mg daily - c/w amlodipine 10 mg PO daily - f/u BP -F/u renal dupplex US official report Anemia -f/u ferritin, retic count, b12 folate, FOBT -Hematology consult to rule out Multiple Myeloma vs MGUS, f/u recommendations Costal pain - could be 2/2 costochondritis - CXR showed no significant osseous abnormalities - c/w Tylenol as pain control; no NSAIDs because impaired renal function - will monitor 4. DM type 2 improving HgbA1C 12/18/16 8.5 % - c/w glipizide BID - Stopped Metformin because GFR : 36 yesterday. - Insulin Lispro by sliding scale -c/w Levemir 5 units SC HS . -accucheck ACHS -consider repeat HgbA1C as outpatient - f/u BSL 5. CKD stage 3 stable - Noted in previous admission - Diabetic nephropathy ruled out by nephrology. - Cr: 1.9; BUN:62 - protein 24 hr: 9 g in nephrotic range (on 12/06/16) - beta 2 microglob: elevated -Micro-alb ratio: elevated, creatinine clearance: decreased -C3: normal, C4 elevated -Nephro on board, f/u recommendations 6. UTI - Asymptomatic - no leukocytosis -f/u repeat urine culture - UA positive for nitrate, WBC normal, neg leukocyte becky - Urine culture "probable contamination." 7. H/o of Lung nodule - Chest CT scan on 09/2016 showed a 15 mm subpleural cavity in the superior segment of right lower lobe with the largest lateral nodule 9 mm. With 3 months f/u recommendations. - Pt was supposed to f/u at [facility] with PMD, but did not. Will do recommended chest CT scan while in house. - Chest CT on 03/06/17: Partial collapse of cavitary component of complex nodule/ mass. Stable solid component 9 x 12 mm 8. DVT prophylaxis - c/w Heparin 5000 units Q12H
[2017-03-11 11:01] LABS: BODY FLUID TOTAL COUNT 100 (0-0)
--- NOTE | 2017-03-11 12:18 | US ---
PROCEDURE: Ultrasonography renal arterial evaluation HISTORY: persistent elevated BP COMPARISON: 05/06/2016. TECHNIQUE: Real-time ultrasonography evaluation of the renal arteries were performed. Comparison is made to the aorta. Report prepared by production technologist. FINDINGS: RIGHT KIDNEY: Measures: 4.9 x 11.9 cm. AORTA: Patent. Peak systolic velocity 48.3 centimeters/second RIGHT RENAL ARTERY: Renal artery to aorta ratio: 3.6 * Proximal segment: Patent. Peak systolic velocity 130.9 centimeters/second * Mid segment: Patent. Peak systolic velocity 172.2 centimeters/second * Distal segment: Patent. Peak systolic velocity 109.4 centimeters/second Other findings: Right Kidney measures approximately 4.9 x 11.9 centimeters. LEFT RENAL ARTERY: Renal artery to aorta ratio: 2.7 * Proximal segment: Patent. Peak systolic velocity 128.3 centimeters/second * Mid segment: Patent. Peak systolic velocity 113.3 centimeters/second * Distal segment: Patent. Peak systolic velocity 128.8 centimeters/second Other findings: Left Kidney measures approximately 6.1 x 11.6 centimeters. IMPRESSION: Limited evaluation. No definite hemodynamically significant stenosis involving the renal arteries as visualized. No significant interval change compared to the prior examination
[2017-03-11 12:56] LABS: KAPPA/LAMBDA FREE RATIO 18.22 (0.26-1.65)
--- NOTE | 2017-03-11 14:42 | CT ---
PROCEDURE: Date of procedure: 03/10/2017 Procedure: 1. Ultrasound-guided left thoracentesis, CPT 77523 Medications: 6cc 1% Lidocaine HISTORY: Left pleural effusion, shortness of breath TECHNIQUE: Following informed consent ,the Patients' left chest was marked. Procedure time-out was called, and the patient was placed in the sitting position and limited ultrasound showed a large left effusion. The patient's left back was prepped and draped in the usual sterile fashion. After the skin was anesthetized with lidocaine, a drainage catheter was advanced under ultrasound guidance into the pleural space. Ultrasound-guided thoracentesis was performed. A total of 1100 cubic centimeters of straw-colored fluid removed without complication. A Xeroform dressing was applied. IMPRESSION: Ultrasound guided left thoracentesis. There were no immediate complications.
[2017-03-11] MEDS: Pantoprazole 40 mg EC Tab PO SCH (17:31)
[2017-03-11] MEDS: Insulin Detemir 100 Units/ml Inj SC SCH (21:30)
[2017-03-12 00:34] VITALS: O2SAT 97
[2017-03-12 07:31] VITALS: RESP 20; TEMP 98.4
[2017-03-12 07:57] LABS: RBC URINE 1 /hpf (0-3); URINE BACTERIA RARE (<OCC); URINE BILIRUBIN NEGATIVE (NEGATIVE); URINE BLOOD NEGATIVE (NEGATIVE); URINE COLOR YELLOW (YELLOW); URINE GLUCOSE (UA) 150 mg/dL (Normal); URINE KETONE NEGATIVE (NEGATIVE); URINE LEUKOCYTE ESTERASE NEG Leu/uL (Negative); URINE PROTEIN >=500 mg/dL (NEGATIVE); URINE UROBILINOGEN 0.2-1.0 mg/dL (0.2-1.0); WBC URINE 3 /hpf (0-5)
[2017-03-12 08:41] LABS: HEMATOCRIT 28.7 % (35.0-51.0); MEAN CORPUSCULAR HEMOGLOBIN 31.7 pg (27.0-31.0); MEAN CORPUSCULAR HGB CONC 33.4 g/dL (33.0-37.0); RED CELL DISTRIBUTION WIDTH 14.8 % (11.5-14.5); WHITE BLOOD COUNT 8.1 K/uL (4.8-10.8)
--- NOTE | 2017-03-12 08:46 | CP.PCM.DIS ---
Provider - Provider Date of Admission: 03/05/17 15:22 Attending physician: Elizabeth Kelley MD Consults: Aniline Press Worker, Dr. Morales Therapy Administrative Assistant, Dr. Iraheta Time Spent in preparation of Discharge (in minutes): 30 Diagnosis - Discharge Diagnosis (1) CHF exacerbation Status: Acute (2) Chronic kidney disease (CKD) Status: Chronic (3) HTN (hypertension) Status: Chronic (4) Diabetes mellitus type 2 in nonobese Status: Chronic Hospital Course - Lab Results Lab Results: Micro Results 03/10/17 15:00 Body Fluid - Lung Gram Stain - Final 03/10/17 15:00 Body Fluid - Lung Body Fluid Culture - Preliminary NO GROWTH AFTER 24 HOURS 03/07/17 10:40 Blood Blood Culture - Preliminary NO GROWTH AFTER 4 DAYS 03/07/17 10:15 Blood Blood Culture - Preliminary NO GROWTH AFTER 4 DAYS 03/10/17 15:00 Lung Fungal Culture - Preliminary 03/07/17 16:26 Urine,Clean Catch Urine Culture - Final 10-50,000 CFU/ML. MULTIPLE SPECIES. PROBABLE CONTAMINATION. Most Recent Lab Values WBC 8.1 K/uL (4.8-10.8) 03/12/17 07:30 RBC 3.02 Mil/uL (4.40-5.90) L 03/12/17 07:30 Hgb 9.6 g/dL (12.0-18.0) L 03/12/17 07:30 Hct 28.7 % (35.0-51.0) L 03/12/17 07:30 MCV 95.0 fl (80.0-94.0) H 03/12/17 07:30 MCH 31.7 pg (27.0-31.0) H 03/12/17 07:30 MCHC 33.4 g/dL (33.0-37.0) 03/12/17 07:30 RDW 14.8 % (11.5-14.5) H 03/12/17 07:30 Plt Count 218 K/uL (130-400) 03/12/17 07:30 MPV 10.0 fl (7.2-11.7) 03/05/17 13:35 Neut % (Auto) 69.2 % (50.0-75.0) 03/05/17 13:35 Lymph % (Auto) 21.5 % (20.0-40.0) 03/05/17 13:35 [place] % (Auto) 7.1 % (0.0-10.0) 03/05/17 13:35 Eos % (Auto) 1.8 % (0.0-4.0) 03/05/17 13:35 Baso % (Auto) 0.4 % (0.0-2.0) 03/05/17 13:35 Neut # 4.1 K/uL (1.8-7.0) 03/05/17 13:35 Lymph # 1.3 K/uL (1.0-4.3) 03/05/17 13:35 [place] # 0.4 K/uL (0.0-0.8) 03/05/17 13:35 Eos # 0.1 K/uL (0.0-0.7) 03/05/17 13:35 Baso # 0.0 K/uL (0.0-0.2) 03/05/17 13:35 ESR 73 mm/hr (0-20) H 03/07/17 06:20 PT 10.2 Seconds (9.8-13.1) 03/10/17 06:50 INR 1.0 (0.9-1.2) 03/10/17 06:50 APTT 32.3 Seconds (25.6-37.1) 03/10/17 06:50 Sodium 140 mmol/l (132-148) 03/11/17 09:44 Potassium 4.2 MMOL/L (3.6-5.0) 03/11/17 09:44 Chloride 112 mmol/L (98-107) H 03/11/17 09:44 Carbon Dioxide 24 mmol/L (22-30) 03/11/17 09:44 Anion Gap 8 (10-20) L 03/11/17 09:44 BUN 62 mg/dl (9-20) H 03/11/17 09:44 Creatinine 1.9 mg/dL (0.8-1.5) H 03/11/17 09:44 Est GFR ( Amer) 43 03/11/17 09:44 Est GFR (Non-Af Amer) 36 03/11/17 09:44 POC Glucose (mg/dL) 171 mg/dL (65-110) H 03/12/17 06:16 Random Glucose 98 mg/dL (75-110) 03/11/17 09:44 Calcium 8.2 mg/dL (8.4-10.2) L 03/11/17 09:44 Total Bilirubin 0.2 mg/dl (0.2-1.3) 03/10/17 06:50 AST 21 U/L (17-59) 03/10/17 06:50 ALT 34 U/L (21-72) 03/10/17 06:50 Alkaline Phosphatase 71 U/L (38-126) 03/10/17 06:50 Troponin I 0.0220 ng/mL (0.00-0.120) 03/06/17 05:00 NT-Pro-B Natriuret Pep 3810 pg/ml (0-900) H 03/10/17 06:50 Total Protein 5.6 G/DL (6.3-8.2) L 03/10/17 06:50 Total Protein (PEP) 4.0 g/dL (6.1-8.1) L 03/11/17 08:30 Albumin 2.8 g/dL (3.5-5.0) L 03/10/17 06:50 Globulin 2.8 gm/dL (2.2-3.9) 03/10/17 06:50 Albumin/Globulin Ratio 1.0 (1.0-2.1) 03/10/17 06:50 [id number] 12.50 mg/L (<or= 2.51) H 03/07/17 20:50 Triglycerides 89 mg/DL (0-149) D 03/10/17 06:50 Cholesterol 198 mg/dL (0-199) 03/10/17 06:50 LDL Cholesterol Direct 102 mg/dL (0-129) 03/10/17 06:50 HDL Cholesterol 53 MG/DL (30-70) 03/10/17 06:50 Ethanolamine None detected 03/06/17 05:00 PTH Intact Whole Molec 123 pg/mL (14-64) H 03/07/17 06:20 Cortisol AM Sample 13.9 ug/dL (4.46-22.7) 03/10/17 06:50 Urine Color Yellow (YELLOW) 03/07/17 00:45 Urine Clarity Slighty-cloudy (Clear) 03/07/17 00:45 Urine pH 6.0 (5.0-8.0) 03/07/17 00:45 Ur Specific [place] 1.014 (1.003-1.030) 03/07/17 00:45 Urine Protein >=500 mg/dL (NEGATIVE) 03/07/17 00:45 Urine Glucose (UA) >=500 mg/dL (Normal) 03/07/17 00:45 Urine Ketones Negative mg/dL (NEGATIVE) 03/07/17 00:45 Urine Blood Small (NEGATIVE) 03/07/17 00:45 Urine Nitrate Positive (NEGATIVE) H 03/07/17 00:45 Urine Bilirubin Negative (NEGATIVE) 03/07/17 00:45 Urine Urobilinogen 0.2-1.0 mg/dL (0.2-1.0) 03/07/17 00:45 Ur Leukocyte Esterase Neg [place]/uL (Negative) 03/07/17 00:45 Urine RBC (Auto) 6 /hpf (0-3) H 03/07/17 00:45 Urine Microscopic WBC 5 /hpf (0-5) 03/07/17 00:45 Ur Squamous Epith Cells < 1 /hpf (0-5) 03/07/17 00:45 Urine Bacteria Rare (<OCC) 01/09/17 07:30 Hyaline Casts 0-2 /hpf (0-2) 03/07/17 00:45 Urine Yeast (Budding) Mod /hpf (NEGATIVE) H 03/07/17 00:45 Urine Collection Time 24 HRS 03/07/17 01:00 Urine Total Volume 2200 mL 03/07/17 01:00 Urine Creatinine 44 mg/dL (20-370) 03/07/17 01:00 Creatinine Clearance 28.0 mL/min (107-139) L 03/07/17 01:00 Urine Microalbumin 208.7 mg/dL 03/07/17 01:00 Microalb/Creat Ratio 4786 (<30) H 03/07/17 01:00 Ur Protein 24 Hr Calc 9306.0 mg/24hr (42-225) H 03/06/17 13:00 Fluid Source Pleural/thoracentesi 03/10/17 15:00 Fluid Appearance Clear (CLEAR) 03/10/17 15:00 Fluid WBC 45.0 /mm3 (0.0-300.0) 03/10/17 15:00 Fluid RBC 78.0 /mm3 (0.0-0.0) H 03/10/17 15:00 Fluid Tot Cell Count 100 (0-0) H 03/10/17 15:00 Fluid Neutrophils 40.0 % (0-0) H 03/10/17 15:00 Fluid Lymphocytes 40.0 % (0-0) H 03/10/17 15:00 Fld Monocyte/Macrophag 20 % (0-0) H 03/10/17 15:00 Fluid Glucose 174 mg/dL (NONE ESTABLISHED) 03/10/17 15:00 Fluid Total Protein < 2.0 g/dL (NONE ESTABLISHED) 03/10/17 15:00 Fluid LDH 212 IU (NONE ESTABLISHED) 03/10/17 15:00 Fluid Comment Straw 03/10/17 15:00 Toxicology Panel see note 03/06/17 05:00 Alcohol, Quantitative < 10 mg/dl (0-10) 03/05/17 13:35 Methyl Alcohol Level None detected 03/06/17 05:00 Isopropanol None detected 03/06/17 05:00 Acetone Level None detected 03/06/17 05:00 IgA 109.7 mg/dL (70.0-400.0) 03/11/17 06:30 Serum Immunofixation Detected (Not Detected) H 03/07/17 20:50 ELIJAH Screen Negative (Negative) 03/07/17 06:20 Complement C3 100.0 mg/dL (88.0-165.0) 03/07/17 06:20 Complement C4 51.7 mg/dL (14.0-44.0) H 03/07/17 06:20 Tot [place]/Lambda Ratio 1.58 (1.29-2.55) 03/07/17 20:50 [place] Light Chain Anal 112 mg/dL (176-443) L 03/07/17 20:50 Free [place] Light Chains 756.3 mg/L (3.3-19.4) H 03/07/17 20:50 Lambda Light Chain Anal 71 mg/dL (91-240) L 03/07/17 20:50 Free Lambda Light Chain 41.5 mg/L (5.7-26.3) H 03/07/17 20:50 Free [place]/Lambda Ratio 18.22 (0.26-1.65) H 03/07/17 20:50 - Hospital Course Hospital Course: 66 y/o homeless M with PMHx of DM type 2, HTN, Diastolic CHF admitted with CHF exacerbation and impaired renal function. Patient was not taking medications for few months because he can not afford his medications. During admission patient was managed with diuretic,b-tamara, ACEI, and spironolactone. Cardio consulted and agreed with initial medical management. Because moderate left pleural effusion persistent regarding diuretic given, IR was consulted and thoracocentesis was done on 03/10/17 and 1100 cc of clear yellow fluid was removed. Patient had uncontrolled elevated BP and antihypertensive treatment was adjusted as tolerated, and also patient was refusing PO medications. Renal US showed no findings of renal arteries stenosis. Mild anemia was noted associated with worsening renal function. Therapy Administrative Assistant and Aniline Press Worker were consulted for possible Multiple Myeloma vs MGUS. Some order work up pending and needs f/u as outpatient for further work up and possible kidney biopsy. As per Hemo no other intervention while in house. DM was uncontrolled and managed with PO hypoglycemic and insulin. Metformin was discontinued due to impaired renal function. Lung nodule found in prior admission was found to be stable in repeat f/u chest CT scan. As per Hemo/Onc and IR no intervention at this time. Pt will f/u with PMD at [facility] on 03/18/17. Home medications Amlodipine 10 mg PO daily Aspirin 81 mg PO daily Atorvastatin 40 mg PO daily Clonidine 0.2 mg BID PO increased dose from 0.1 to 0.2 mg due to uncontrolled BP Lasix 40 mg PO daily Glipizide 10 mg PO BID increased dose from 5 mg BID due to uncontrolled BSL HYdralazine 50 mg TID Lisinopril 40 mg PO daily Metoprolol T 50 mg BID Pentoxifylline 400 mg PO TID Spirinolactone 50 mg PO daily Metformin was stopped in this admission because impaired renal function. - Date & Time of H&P Date of H&P: 03/05/17 Time of H&P: 17:05 Discharge Exam - Head Exam Head Exam: ATRAUMATIC - Eye Exam Eye Exam: Normal appearance - Respiratory Exam Respiratory Exam: Decreased Breath Sounds (very sligthly in lower lobes bilateral), NORMAL BREATHING PATTERN Additional comments: scant crackles in right lower lobe - Cardiovascular Exam Cardiovascular Exam: REGULAR RHYTHM, +S1, +S2 - GI/Abdominal Exam GI & Abdominal Exam: Normal Bowel Sounds, Soft. absent: Distended, Guarding - Extremities Exam Extremities exam: normal inspection, pedal edema Additional comments: bilateral pitting 2 + edema of LE - Neurological Exam Neurological exam: Alert, Oriented x3 - Skin Skin Exam: Dry, Intact, Normal Color Discharge Plan - Discharge Medications Prescriptions: amLODIPine [Norvasc] 10 mg PO DAILY #30 Aspirin [Ecotrin] 81 mg PO DAILY #30 Atorvastatin [Lipitor] 40 mg PO DAILY #30 tab cloNIDine [Catapres] 0.2 mg PO BID #60 tab Furosemide [Lasix] 40 mg PO DAILY #30 GlipiZIDE [Glucotrol] 10 mg PO BID #60 tab hydrALAZINE [Apresoline] 50 mg PO TID #90 tab Lisinopril [Zestril] 40 mg PO DAILY #30 tab Metoprolol Tartrate [Lopressor] 50 mg PO BID #60 Pentoxifylline [Pentoxil] 400 mg PO TID #90 ter Spironolactone [Aldactone] 50 mg PO DAILY #30 tab - Follow Up Plan Condition: STABLE Disposition: HOME/ ROUTINE Patient education suggested?: Yes Instructions: Heart Failure (DC), Heart Healthy Diet (DC) Additional Instructions: F/u with PMD at [facility] on 03/18/17 at 11:20 am ER precautions given Referrals: [facility] [place] [Outside] Shane Sebastian MD [Staff Provider] -
[2017-03-12] MEDS ORDERED: Pantoprazole 40 mg EC Tab PO SCH (09:00)
[2017-03-12] MEDS: Calcium-Vit D 500 mg-200 Units Tab UD PO SCH (09:00)
[2017-03-12 09:07] LABS: CALCIUM 7.9 mg/dL (8.4-10.2); POTASSIUM 4.6 MMOL/L (3.6-5.0)
[2017-03-12] MEDS: Insulin Lispro (humaLOG) 100 Units/ml Inj SC SCH ×2 (09:11→11:45)
[2017-03-12] MEDS: Pantoprazole 40 mg EC Tab PO SCH (09:17)
--- NOTE | 2017-03-12 10:07 | CP.PCM.PN ---
Subjective - Date & Time of Evaluation Date of Evaluation: 03/11/17 Time of Evaluation: 18:15 - Subjective Subjective: No complaints. Objective - Vital Signs/Intake and Output Vital Signs (last 24 hours): Temp Pulse Resp BP Pulse Ox 98.4 F 61 20 182/70 H 97 03/12/17 07:30 03/12/17 09:17 03/12/17 07:30 03/12/17 09:17 03/12/17 07:30 - Medications Medications: Current Medications Acetaminophen (Tylenol 325mg Tab) 650 mg PO Q4 PRN PRN Reason: Pain, Mild (1-3) Last Admin: 03/10/17 15:38 Dose: 650 mg Albuterol/Ipratropium (Duoneb 3 Mg/0.5 Mg (3 Ml) Ud) 3 ml INH RQ4 PRN PRN Reason: Shortness of Breath Amlodipine Besylate (Norvasc) 10 mg PO DAILY [facility] Last Admin: 03/12/17 09:15 Dose: 10 mg Aspirin (Ecotrin) 81 mg PO DAILY [facility] Last Admin: 03/12/17 09:09 Dose: 81 mg Atorvastatin Calcium (Lipitor) 40 mg PO DAILY [facility] Last Admin: 03/12/17 09:13 Dose: 40 mg Calcium/Vitamin D (Oyster Shell Calcium/Vitamin D 500 Mg-200 Iu) 1 tab PO DAILY [facility] Last Admin: 03/11/17 10:39 Dose: Not Given Clonidine HCl (Catapres) 0.2 mg PO BID [facility] Last Admin: 03/12/17 09:08 Dose: 0.2 mg Furosemide (Lasix) 40 mg IVP DAILY [facility] Last Admin: 03/12/17 09:13 Dose: 40 mg Glipizide (Glucotrol) 5 mg PO BID [facility] Last Admin: 03/12/17 09:09 Dose: 5 mg Heparin Sodium (Porcine) (Heparin) 5,000 units SC Q12 [facility] PRN Reason: Protocol Last Admin: 03/12/17 09:24 Dose: Not Given Hydralazine HCl (Apresoline) 100 mg PO TID [facility] Insulin Detemir (Levemir) 5 units SC HS [facility] Last Admin: 03/11/17 21:30 Dose: Not Given Insulin Human Lispro (Humalog) 0 units SC ACHS [facility] PRN Reason: Protocol Last Admin: 03/12/17 09:11 Dose: 2 unit Lisinopril (Zestril) 40 mg PO DAILY [facility] Last Admin: 03/12/17 09:17 Dose: 40 mg Metoprolol Tartrate (Lopressor) 50 mg PO Q12 [facility] Last Admin: 03/12/17 09:13 Dose: 50 mg Nitroglycerin (Nitrostat Sl Tab) 0.4 mg SL Q5M PRN PRN Reason: Other Pantoprazole Sodium (Protonix Ec Tab) 40 mg PO DAILY [facility] Last Admin: 03/12/17 09:17 Dose: 40 mg Pentoxifylline (Pentoxil) 400 mg PO TID [facility] Last Admin: 03/12/17 09:17 Dose: 400 mg Spironolactone (Aldactone) 50 mg PO DAILY [facility] Last Admin: 03/12/17 09:07 Dose: 50 mg - Labs Labs: 03/12/17 07:30 03/12/17 07:30 PT 10.2 Seconds (9.8-13.1) 03/10/17 06:50 INR 1.0 (0.9-1.2) 03/10/17 06:50 APTT 32.3 Seconds (25.6-37.1) 03/10/17 06:50 - Head Exam Head Exam: ATRAUMATIC - Eye Exam Eye Exam: Normal appearance - ENT Exam ENT Exam: Mucous Membranes Dry - Respiratory Exam Respiratory Exam: NORMAL BREATHING PATTERN - Cardiovascular Exam Cardiovascular Exam: +S1, +S2 - GI/Abdominal Exam GI & Abdominal Exam: Normal Bowel Sounds Assessment and Plan (1) Anemia Assessment & Plan: anemia of CKD f/u monoclonal protein evaluation Status: Chronic (2) Pleural effusion Assessment & Plan: s/p thoracentesis f/u cytology Status: Acute (3) Lung nodule Assessment & Plan: f/u pleural fluid cytology may need biopsy Status: Acute
[2017-03-12 12:49] VITALS: BP 157/64; PULSE 79
[2017-03-12 21:16] LABS: BETA 1 GLOBULIN 0.3 g/dL (0.4-0.6); BETA 2 GLOBULIN 0.3 g/dL (0.2-0.5); GAMMA GLOBULIN 0.4 g/dL (0.8-1.7)
== END 2017-03-12 15:19 | disposition home or self-care (01) | DRG 544 ==
LOC: H.ER 12:57 → H.ERHOLD 15:22 → H.TEL 17:54 → H.MEDSURG1 03-08 18:40
PROVIDERS: ADMIT Family Medicine Geriatric Medicine; ATTEND Family Medicine Geriatric Medicine
PROC: 0W9B3ZZ Drainage of Left Pleural Cavity, Percutaneous Approach (ICD-10-PCS; principal; 2017-03-10)
DX: I13.0 Hypertensive heart and chronic kidney disease with heart failure and stage 1 through stage 4 chronic kidney disease, or unspecified chronic kidney disease (principal); I50.32 Chronic diastolic (congestive) heart failure; J90 Pleural effusion, not elsewhere classified; E11.22 Type 2 diabetes mellitus with diabetic chronic kidney disease; E11.649 Type 2 diabetes mellitus with hypoglycemia without coma; J44.9 Chronic obstructive pulmonary disease, unspecified; E11.65 Type 2 diabetes mellitus with hyperglycemia; N18.3 Chronic kidney disease, stage 3 (moderate); D63.1 Anemia in chronic kidney disease; E88.09 Other disorders of plasma-protein metabolism, not elsewhere classified; F17.210 Nicotine dependence, cigarettes, uncomplicated; F31.9 Bipolar disorder, unspecified; I25.2 Old myocardial infarction; Z59.0 Homelessness; Z79.82 Long term (current) use of aspirin; Z79.84 Long term (current) use of oral hypoglycemic drugs; Z79.899 Other long term (current) drug therapy; Z87.01 Personal history of pneumonia (recurrent); Z91.14 Patient's other noncompliance with medication regimen

== ENCOUNTER 2017-03-31 20:55 | Inpatient (IN) | payer SELFPAY ==
[2017-03-31 20:55] VITALS: BMI 23.8
--- NOTE | 2017-03-31 21:25 | ED PDOC ---
HPI: Hypertension/Hypotension Time Seen by Provider: 03/31/17 21:05 Chief Complaint (Nursing): High Blood Pressure Chief Complaint (Provider): hypertension History Per: Patient History/Exam Limitations: no limitations Onset/Duration Of Symptoms: Days (1) Current Symptoms Are (Timing): Still Present Associated Symptoms: Dizziness Additional History Per: Patient Additional Complaint(s): 66 y/o male history of diabetes, hypertension, congestive heart failure, lung nodule brought in by EMS for eval of hypertension x 1 day. Patient states he began to fill dizzy this morning, which he usually feels when his blood pressure is high. Patient also notes pain to right upper back and swelling to bilateral legs with some shortness of breath x 3 days, but notes this to be a on and off issue x years. Patient states he he was discharged from hospital a few weeks ago, had prescriptions filled on 03/20 but has not taken in them in one week. Patient denies headache, extremity numbness/weakness, chest pain, palpitations, abdominal pain, changes in bowel movements, urinary symptoms. Past Medical History Reviewed: Historical Data, Nursing Documentation, Vital Signs Vital Signs: Last Vital Signs Temp 97.8 F 03/31/17 20:58 Pulse 88 03/31/17 20:58 Resp 18 03/31/17 20:58 BP 226/97 H 03/31/17 20:58 Pulse Ox 98 03/31/17 20:58 - Medical History PMH: Anxiety, Bipolar Disorder, CHF, Depression, Diabetes (type II), HTN, Peripheral Edema, Pneumonia, Chronic Pain (b/l leg pain) Denies: Arthritis, COPD, HIV, Hypercholesterolemia, Hypothyroidism, Chronic Kidney Disease, Rheumatoid Arthritis - Surgical History Surgical History: No Surg Hx - Family History Family History: States: Unknown Family Hx - Home Medications Home Medications: Ambulatory Orders Medication Instructions Recorded Aspirin [Ecotrin] 81 mg PO DAILY #30 03/12/17 Atorvastatin [Lipitor] 40 mg PO DAILY #30 tab 03/12/17 Furosemide [Lasix] 40 mg PO DAILY #30 03/12/17 GlipiZIDE [Glucotrol] 10 mg PO BID #60 tab 03/12/17 Lisinopril [Zestril] 40 mg PO DAILY #30 tab 03/12/17 Metoprolol Tartrate [Lopressor] 50 mg PO BID #60 03/12/17 Pentoxifylline [Pentoxil] 400 mg PO TID #90 ter 03/12/17 amLODIPine [Norvasc] 10 mg PO DAILY #30 03/12/17 cloNIDine [Catapres] 0.2 mg PO BID #60 tab 03/12/17 hydrALAZINE [Apresoline] 50 mg PO TID #90 tab 03/12/17 Spironolactone [Aldactone] 25 mg PO DAILY 03/31/17 - Allergies Allergies/Adverse Reactions: Allergies Allergy/AdvReac Type Severity Reaction Status Date / Time No Known Allergies Allergy Verified 12/15/16 18:07 Review of Systems ROS Statement: Except As Marked, All Systems Reviewed And Found Negative Musculoskeletal: Positive for: Back Pain, Leg Pain Neurological: Positive for: Dizziness Physical Exam - Reviewed Nursing Documentation Reviewed: Yes Vital Signs Reviewed: Yes - Physical Exam Appears: Positive for: Well, Non-toxic, No Acute Distress Head Exam: Positive for: ATRAUMATIC, NORMAL INSPECTION, NORMOCEPHALIC Skin: Positive for: Normal Color Eye Exam: Positive for: Normal appearance, EOMI, PERRL ENT: Positive for: Normal ENT Inspection Cardiovascular/Chest: Positive for: Regular Rate, Rhythm Respiratory: Positive for: Normal Breath Sounds Gastrointestinal/Abdominal: Positive for: Normal Exam Back: Positive for: Normal Inspection Extremity: Positive for: Swelling (2+ pitting edema) Neurologic/Psych: Positive for: Alert, Oriented - Laboratory Results Result Diagrams: 03/31/17 22:50 03/31/17 22:50 - ECG ECG: Positive for: Viewed By Me (reviewed by ED attending) ECG Rhythm: Positive for: Sinus Rhythm O2 Sat by Pulse Oximetry: 98 - Radiology X-Ray: Viewed By Me X-Ray Interpretation: No Acute Disease - Progress ED Course And Treament: labs, ekg, chest xray, urine, PO clonidine EXAM: CT Head Without Intravenous Contrast CLINICAL HISTORY: 66 years old, male; Signs and symptoms; Dizziness and other: Hypertension; Additional info: Dizziness, hypertension. Sent phy. Doc. TECHNIQUE: Axial computed tomography images of the head/brain without intravenous contrast. All CT scans at this facility use one or more dose reduction techniques, viz.: automated exposure control; ma/kV adjustment per patient size (including targeted exams where dose is matched to indication; i.e. head); or iterative reconstruction technique. Coronal and sagittal reformatted images were created and reviewed. COMPARISON: CT - HEAD W/O CONTRAST 12/07/2015 5:25:58 PM FINDINGS: Brain: No acute intracranial hemorrhage. Age-appropriate periventricular white matter disease. No edema. Ventricles: Age-appropriate ventriculomegaly. Bones: No acute displaced fracture. Sinuses: Unremarkable as visualized. No acute sinusitis. Mastoid air cells: Unremarkable as visualized. No mastoid effusion. IMPRESSION: No acute intracranial hemorrhage, or suspicious mass effect Case discussed with ED attending Dr. Mendoza, will place in observation tele for CFH exacerbation, uncontrolled hypertension. IV lasix, nitropaste ordered. Case discussed with family practice resident on-call for admission. Disposition - Clinical Impression Clinical Impression: CHF (congestive heart failure), Uncontrolled hypertension - Patient ED Disposition Is Patient to be Admitted: Yes - Disposition Disposition Time: 23:20 Condition: FAIR - Pt Status Changed To: Hospital Disposition Of: Observation - POA Present On Arrival: Poor Glycemic Control
--- NOTE | 2017-03-31 22:48 | CT ---
EXAM: CT Head Without Intravenous Contrast CLINICAL HISTORY: 66 years old, male; Signs and symptoms; Dizziness and other: Hypertension; Additional info: Dizziness, hypertension. Sent phy. Doc. TECHNIQUE: Axial computed tomography images of the head/brain without intravenous contrast. All CT scans at this facility use one or more dose reduction techniques, viz.: automated exposure control; ma/kV adjustment per patient size (including targeted exams where dose is matched to indication; i.e. head); or iterative reconstruction technique. Coronal and sagittal reformatted images were created and reviewed. COMPARISON: CT - HEAD W/O CONTRAST 12/07/2015 5:25:58 PM FINDINGS: Brain: No acute intracranial hemorrhage. Age-appropriate periventricular white matter disease. No edema. Ventricles: Age-appropriate ventriculomegaly. Bones: No acute displaced fracture. Sinuses: Unremarkable as visualized. No acute sinusitis. Mastoid air cells: Unremarkable as visualized. No mastoid effusion. IMPRESSION: No acute intracranial hemorrhage, or suspicious mass effect.
[2017-03-31 22:53] LABS: BASO # 0.1 K/uL (0.0-0.2); BASO % 1.2 % (0.0-2.0); EOS # 0.2 K/uL (0.0-0.7); EOS % 2.2 % (0.0-4.0); LYMPH # 1.9 K/uL (1.0-4.3); LYMPH % 24.4 % (20.0-40.0); MEAN CELL VOLUME 95.4 fl (80.0-94.0); MEAN CORPUSCULAR HEMOGLOBIN 31.9 pg (27.0-31.0); MEAN CORPUSCULAR HGB CONC 33.5 g/dL (33.0-37.0); MEAN PLATELET VOLUME 9.8 fl (7.2-11.7); MONO # 0.5 K/uL (0.0-0.8); MONO % 6.6 % (0.0-10.0); NEUT # 5.2 K/uL (1.8-7.0); NEUT % 65.6 % (50.0-75.0); NRBC % 0.1 % (0.0-0.0); WHITE BLOOD COUNT 7.9 K/uL (4.8-10.8)
[2017-03-31 23:11] LABS: ALCOHOL SERUM < 10 mg/dl (0-10); ALKALINE PHOSPHATASE 74 U/L (38-126); ALT/SGPT 26 U/L (21-72); AST/SGOT 23 U/L (17-59); BILIRUBIN,TOTAL 0.3 mg/dl (0.2-1.3); BLOOD UREA NITROGEN 46 mg/dl (9-20); CARBON DIOXIDE 20 mmol/L (22-30); CHLORIDE 116 mmol/L (98-107); GFR AFRICAN-AMERICAN 41; GLUCOSE,RANDOM 135 mg/dL (75-110); POTASSIUM 3.9 MMOL/L (3.6-5.0); SODIUM 145 mmol/l (132-148); TOTAL PROTEIN 5.6 G/DL (6.3-8.2)
[2017-03-31] MEDS ORDERED: Nitroglycerin 2% 15 INCH/30 GM TUBE TOP STA (23:27)
[2017-03-31 23:30] LABS: URINE BACTERIA RARE (<OCC); URINE BILIRUBIN NEGATIVE (NEGATIVE); URINE BLOOD SMALL (NEGATIVE); URINE COLOR YELLOW (YELLOW); URINE GLUCOSE (UA) >=500 mg/dL (Normal); URINE KETONE NEGATIVE (NEGATIVE); URINE LEUKOCYTE ESTERASE NEG Leu/uL (Negative); URINE PROTEIN >=500 mg/dL (NEGATIVE); URINE UROBILINOGEN 0.2-1.0 mg/dL (0.2-1.0)
[2017-03-31] MEDS ORDERED: Nitroglycerin 2% Ointment Foilpak UD TOP ONE (23:51)
[2017-04-01 00:05] LABS: RBC URINE 7 /hpf (0-3); WBC URINE 4 /hpf (0-5)
--- NOTE | 2017-04-01 00:13 | CP.PCM.HP ---
History of Present Illness - History of Present Illness History of Present Illness: CC: SOB Background: [facility] patient, who appears to have difficulty purchasing medications for his medical conditions which result in readmissions. Ms Wong contacted his friend Valeriy Morejon who said patient does not take medication and he offers him a place to sleep when possible. 66M who p/w worsening shortness of breath, headaches. He denies chest pain, palpitations, dysuria, diarrhea, abdominal pain. He was discharged on 2016 with scheduled follow up 03/18/17 which he was unable to make. He says he never got medication because he cannot afford medication. PMH: sCHF (Echo: 07/2016, EF: 45-50% w/abnml relaxation Grade II), DM, HTN, CKD Stage III, Anemia, Lung Nodule SHx: smoker, denies alcohol, denies illicit drugs; homeless AME: See Med Rec Allergies: NKDA ED COURSE VSS: 36.6- 88- 226/97- 18- SpO2- 98% CBC: 7.9>10.1L/30L<224, MCV- 95.4 CMP: 145/3.9- 116H/20L- 46H/2.0H, Gluc- 135H, Ca- 8.0 (8.6c), TBili- 0.3, ALP/ AST/ALT- 74/23/26, TProt/Alb- 5.6/2.8, Trop: 0.0290 BNP: 10,600H UTox- negative CT Head: No acute ICH, or suspicious mass effect CXR: Left heart border obscured when compared to prior admission Meds: Lasix, Nitro, Clonidine Present on Admission - Present on Admission Any Indicators Present on Admission: No Review of Systems - Review of Systems All systems: reviewed and no additional remarkable complaints except - Respiratory Respiratory: As Per HPI Past Patient History - Infectious Disease Hx of Infectious Diseases: None - Tetanus Immunizations Tetanus Immunization: Unknown - Past Medical History & Family History Past Medical History?: Yes - Past Social History Smoking Status: Light Smoker < 10 Cigarettes Daily - CARDIAC Hx Congestive Heart Failure: Yes Hx Hypercholesterolemia: No Hx Hypertension: Yes Hx Peripheral Edema: Yes - PULMONARY Hx Chronic Obstructive Pulmonary Disease (COPD): No Hx Pneumonia: Yes - NEUROLOGICAL HX Cerebrovascular Accident: No - HEENT Hx HEENT Problems: No - RENAL Hx Chronic Kidney Disease: No - ENDOCRINE/METABOLIC Hx Hypothyroidism: No - HEMATOLOGICAL/ONCOLOGICAL Hx Human Immunodeficiency Virus (HIV): No - INTEGUMENTARY Hx Dermatological Problems: Yes - MUSCULOSKELETAL/RHEUMATOLOGICAL Hx Arthritis: No Hx Rheumatoid Arthritis: No - GASTROINTESTINAL Hx Gastrointestinal Disorders: No - GENITOURINARY/GYNECOLOGICAL Hx Genitourinary Disorders: No - PSYCHIATRIC Hx Anxiety: Yes Hx Bipolar Disorder: Yes Hx Depression: Yes - SURGICAL HISTORY Hx Surgeries: No - ANESTHESIA Hx Anesthesia: Yes Hx Anesthesia Reactions: No Hx Malignant Hyperthermia: No Meds Allergies/Adverse Reactions: Allergies Allergy/AdvReac Type Severity Reaction Status Date / Time No Known Allergies Allergy Verified 12/15/16 18:07 Physical Exam - Constitutional Appears: Non-toxic, No Acute Distress - Head Exam Head Exam: ATRAUMATIC, NORMAL INSPECTION - Eye Exam Eye Exam: EOMI, Normal appearance - ENT Exam ENT Exam: Mucous Membranes Dry - Neck Exam Neck exam: Positive for: Full Rom. Negative for: Lymphadenopathy - Respiratory Exam Respiratory Exam: Decreased Breath Sounds (On LEFT base), NORMAL BREATHING PATTERN. absent: Wheezes - Cardiovascular Exam Cardiovascular Exam: REGULAR RHYTHM - GI/Abdominal Exam GI & Abdominal Exam: Normal Bowel Sounds, Soft. absent: Tenderness - Extremities Exam Extremities exam: Positive for: normal capillary refill, pedal edema (up to b/l knees). Negative for: calf tenderness - Neurological Exam Neurological exam: Alert - Psychiatric Exam Psychiatric exam: Normal Affect - Skin Skin Exam: Normal Color, Warm Results - Vital Signs Recent Vital Signs: Last Vital Signs Temp 36.6 C 03/31/17 20:58 Pulse 75 03/31/17 22:07 Resp 18 03/31/17 20:58 BP 187/84 H 03/31/17 23:59 Pulse Ox 98 03/31/17 23:30 - Labs Result Diagrams: 04/01/17 04:30 04/01/17 04:30 Labs: Laboratory Results - last 24 hr 03/31/17 03/31/17 03/31/17 22:40 22:50 22:50 WBC 7.9 RBC 3.15 L Hgb 10.1 L Hct 30.0 L MCV 95.4 H MCH 31.9 H MCHC 33.5 RDW 15.0 H Plt Count 224 MPV 9.8 Neut % (Auto) 65.6 Lymph % (Auto) 24.4 [place] % (Auto) 6.6 Eos % (Auto) 2.2 Baso % (Auto) 1.2 Neut # 5.2 Lymph # 1.9 [place] # 0.5 Eos # 0.2 Baso # 0.1 Sodium 145 Potassium 3.9 Chloride 116 H Carbon Dioxide 20 L Anion Gap 13 BUN 46 H Creatinine 2.0 H Est GFR ( Amer) 41 Est GFR (Non-Af Amer) 34 POC Glucose (mg/dL) 160 H Random Glucose 135 H Calcium 8.0 L Total Bilirubin 0.3 AST 23 ALT 26 Alkaline Phosphatase 74 Troponin I 0.0290 NT-Pro-B Natriuret Pep 21214 H Total Protein 5.6 L Albumin 2.8 L Globulin 2.8 Albumin/Globulin Ratio 1.0 Urine Color Urine Clarity Urine pH Ur Specific [place] Urine Protein Urine Glucose (UA) Urine Ketones Urine Blood Urine Nitrate Urine Bilirubin Urine Urobilinogen Ur Leukocyte Esterase Urine RBC (Auto) Urine Microscopic WBC Ur Squamous Epith Cells Urine Bacteria Hyaline Casts Urine Opiates Screen Urine Methadone Screen Ur Barbiturates Screen Ur Phencyclidine Scrn Ur Amphetamines Screen U Benzodiazepines Scrn U Oth Cocaine Metabols U Cannabinoids Screen Alcohol, Quantitative < 10 03/31/17 03/31/17 23:21 23:21 WBC RBC Hgb Hct MCV MCH MCHC RDW Plt Count MPV Neut % (Auto) Lymph % (Auto) [place] % (Auto) Eos % (Auto) Baso % (Auto) Neut # Lymph # [place] # Eos # Baso # Sodium Potassium Chloride Carbon Dioxide Anion Gap BUN Creatinine Est GFR ( Amer) Est GFR (Non-Af Amer) POC Glucose (mg/dL) Random Glucose Calcium Total Bilirubin AST ALT Alkaline Phosphatase Troponin I NT-Pro-B Natriuret Pep Total Protein Albumin Globulin Albumin/Globulin Ratio Urine Color Yellow Urine Clarity Slighty-cloudy Urine pH 6.0 Ur Specific [place] 1.018 Urine Protein >=500 Urine Glucose (UA) >=500 Urine Ketones Negative Urine Blood Small Urine Nitrate Negative Urine Bilirubin Negative Urine Urobilinogen 0.2-1.0 Ur Leukocyte Esterase Neg Urine RBC (Auto) 7 H Urine Microscopic WBC 4 Ur Squamous Epith Cells < 1 Urine Bacteria Rare Hyaline Casts 0-2 Urine Opiates Screen Negative Urine Methadone Screen Negative Ur Barbiturates Screen Negative Ur Phencyclidine Scrn Negative Ur Amphetamines Screen Negative U Benzodiazepines Scrn Negative U Oth Cocaine Metabols Negative U Cannabinoids Screen Negative Alcohol, Quantitative Assessment & Plan (1) CHF exacerbation Assessment and Plan: Acute on chronic exacerbation with BNP over 10,000 and not taking medications. Based on prior echo there is a component of systolic and diastolic dysfunction. - restart medication - Trend Troponins - 2-view CXR - Daily weights - I&Os Status: Acute (2) DVT prophylaxis Assessment and Plan: Started on Heparin 5,000U, SC, Q8H Status: Acute (3) Diabetes Assessment and Plan: Not well-controlled, re-start medication Status: Chronic (4) HTN (hypertension) Assessment and Plan: Not well-controlled, given patient's history of not taking medication clonidine , although cheap, is a concerning drug due to BP rebound when abruptly stopped. Reconsider BP medication and patient will likely need a meds to beds program to increase compliance. - Re-start medication - monitor BP Status: Chronic (5) Chronic kidney disease (CKD) Assessment and Plan: CKD Stage III at last visit and known to Dr Trimble who felt proteinuria was diabetic nephropathy vs. MGUS. - c/w hydralazine/lopressor - Restrict fluid to 1500ml/day (recommendation from last visit) - Consider Nephrology consult for continued work-up Status: Chronic (6) Lung nodule Assessment and Plan: Cavitary lesion at superior aspect of RLL. Lung cytology of LEFT thoracentesis at prior visit negative for malignancy, however it is noted there is a recurrence of LEFT pleural effusion this admission but this is in the setting of low oncotic pressure combined with heart failure picture. Status: Chronic (7) Anemia due to chronic kidney disease Assessment and Plan: As per Dr Iraheta, who was consulted at last visit. Remains stable. Status: Chronic
[2017-04-01 05:36] LABS: BASO # 0.1 K/uL (0.0-0.2); BASO % 1.3 % (0.0-2.0); EOS # 0.2 K/uL (0.0-0.7); EOS % 3.1 % (0.0-4.0); HEMATOCRIT 30.3 % (35.0-51.0); LYMPH # 1.5 K/uL (1.0-4.3); LYMPH % 21.5 % (20.0-40.0); MEAN CELL VOLUME 95.8 fl (80.0-94.0); MEAN CORPUSCULAR HGB CONC 33.4 g/dL (33.0-37.0); MEAN PLATELET VOLUME 10.1 fl (7.2-11.7); MONO # 0.6 K/uL (0.0-0.8); MONO % 8.1 % (0.0-10.0); NEUT # 4.8 K/uL (1.8-7.0); NRBC % 0.1 % (0.0-0.0); WHITE BLOOD COUNT 7.2 K/uL (4.8-10.8)
[2017-04-01 05:41] LABS: BILIRUBIN,TOTAL 0.2 mg/dl (0.2-1.3); POTASSIUM 3.6 MMOL/L (3.6-5.0); TOTAL PROTEIN 5.2 G/DL (6.3-8.2)
[2017-04-01 05:48] LABS: TROPONIN I 0.031 ng/mL (0.00-0.120)
[2017-04-01] MEDS ORDERED: Glucagon Recombinant 1 mg Inj IM PRN (05:55)
[2017-04-01] MEDS ORDERED: Dextrose 50% SYRINGE Inj (50 ml) IV PRN (05:55)
--- NOTE | 2017-04-01 08:35 | CP.PCM.PN ---
Subjective - Date & Time of Evaluation Date of Evaluation: 04/01/17 Time of Evaluation: 08:32 - Subjective Subjective: 66 y/o male seen and evaluated at bedside. Patient is in NAD and is AAOx3. Patient states that he is feeling better than he did yesterday. Patient states that his breathing has gotten better than yesterday as well. Patent also states that his upper back pain has also gotten better since yesterday. Patient denies of any F/N/V/C/SOB/CP this morning. Patient denies of any other complains at this time. Objective - Vital Signs/Intake and Output Vital Signs (last 24 hours): Temp Pulse Resp BP Pulse Ox 98.2 F 66 18 160/63 H 97 04/01/17 08:00 04/01/17 08:00 04/01/17 08:00 04/01/17 08:00 04/01/17 08:00 - Medications Medications: Current Medications Amlodipine Besylate (Norvasc) 10 mg PO DAILY THOMAS Aspirin (Ecotrin) 81 mg PO DAILY THOMAS Atorvastatin Calcium (Lipitor) 40 mg PO DAILY THOMAS Dextrose (Dextrose 50% Inj) 0 ml IV STAT PRN; Protocol PRN Reason: Hyglycemia Protocol Dextrose (Glutose 15) 0 gm PO ONCE PRN; Protocol PRN Reason: Hypoglycemia Protocol Furosemide (Lasix) 40 mg PO DAILY THOMAS Glipizide (Glucotrol) 10 mg PO BID THOMAS Glucagon (Glucagen Diagnostic Kit) 0 mg IM STAT PRN; Protocol PRN Reason: Hypoglycemia Protocol Heparin Sodium (Porcine) (Heparin) 5,000 units SC Q8 THOMAS PRN Reason: Protocol Last Admin: 04/01/17 03:35 Dose: Not Given Hydralazine HCl (Apresoline) 50 mg PO TID THOMAS Lisinopril (Zestril) 40 mg PO DAILY THOMAS Metoprolol Tartrate (Lopressor) 50 mg PO BID THOMAS Pentoxifylline (Pentoxil) 400 mg PO TID THOMAS Spironolactone (Aldactone) 50 mg PO DAILY [facility] - Labs Labs: 04/01/17 04:30 04/01/17 04:30 - Constitutional Appears: Well, Non-toxic, No Acute Distress - Head Exam Head Exam: ATRAUMATIC - Eye Exam Eye Exam: EOMI, PERRL - ENT Exam ENT Exam: Mucous Membranes Dry - Neck Exam Neck Exam: Full ROM - Respiratory Exam Respiratory Exam: Clear to Ausculation Bilateral, NORMAL BREATHING PATTERN - Cardiovascular Exam Cardiovascular Exam: REGULAR RHYTHM - GI/Abdominal Exam GI & Abdominal Exam: Normal Bowel Sounds - Extremities Exam Extremities Exam: Full ROM, Normal Capillary Refill, Pedal Edema Additional comments: +1 pitting edema noted on the distal medial leg bilaterally - Back Exam Back Exam: NORMAL INSPECTION - Neurological Exam Neurological Exam: Alert, Awake, Oriented x3 - Psychiatric Exam Psychiatric exam: Normal Affect, Normal Mood Assessment and Plan - Assessment and Plan (Free Text) Assessment: 66 y/o male with PMHx of CHF, DM, HTN, CKD Stage III, Anemia, Lung Nodule seen and evaluated at bedside for hypertensive crisis Plan: (1) CHF exacerbation Acute on chronic exacerbation with BNP over 10,000 and not taking medications. Based on prior echo there is a component of systolic and diastolic dysfunction. - restart medication - Trend Troponins - 2-view CXR - Impression: Reaccumulation of left pleural effusion. Increasing consolidative changes, compressive atelectasis primarily affective left lower lobe. Cavitary mass right lower lobe which appears to be stable - Daily weights - I&Os Status: Acute (2) DVT prophylaxis Assessment and Plan: Started on Heparin 5,000U, SC, Q8H Status: Acute (3) Diabetes Assessment and Plan: Not well-controlled, re-start medication -Glipizide 10 mg PO BID Status: Chronic (4) HTN (hypertension) Assessment and Plan: Not well-controlled, given patient's history of not taking medication clonidine , although cheap, is a concerning drug due to BP rebound when abruptly stopped. Reconsider BP medication and patient will likely need a med to [facility] program to increase compliance. - Re-start medication -Amlodipine Besylate 10 mg PO qd -Atorvastatin 40 mg PO qd -Furosemide 40 mg PO qd -Hydralazine 50 mg PO TID -Lisinopril 40 mg PO qd -Metoprolol 50 mg PO BID -Spironolactone 50 mg PO qd - monitor BP Status: Chronic (5) Chronic kidney disease (CKD) Assessment and Plan: CKD Stage III at last visit and known to Dr Trimble who felt proteinuria was diabetic nephropathy vs. MGUS. - c/w hydralazine/lopressor - Restrict fluid to 1500ml/day (recommendation from last visit) - Nephrology Recs are appreciated Status: Chronic (6) Lung nodule Assessment and Plan: Cavitary lesion at superior aspect of RLL. Lung cytology of LEFT thoracentesis at prior visit negative for malignancy, however it is noted there is a recurrence of LEFT pleural effusion this admission but this is in the setting of low oncotic pressure combined with heart failure picture. Status: Chronic (7) Anemia due to chronic kidney disease Assessment and Plan: As per Dr Iraheta, who was consulted at last visit. Remains stable. Status: Chronic
--- NOTE | 2017-04-01 08:41 | RAD ---
HISTORY: Right-sided chest pain. Relevant interventional procedure(s): 03/10/2017 left thoracentesis with removal of 1.1 L of fluid COMPARISON: 03/10/2017 single-view chest. 03/06/2017 CT thorax FINDINGS: LUNGS: Cavitary nodule again identified right lower lobe. PLEURA: Large left pleural effusion. Compressive atelectasis remains left lower lobe. This has increased since the post thoracentesis chest radiograph 03/10/2017 CARDIOVASCULAR: No radiographic findings to suggest acute or significant cardiovascular disease. OSSEOUS STRUCTURES: No significant abnormalities. VISUALIZED UPPER ABDOMEN: Normal. OTHER FINDINGS: None. IMPRESSION: Reaccumulation of left pleural effusion. Increasing consolidative changes, compressive atelectasis primarily affecting left lower lobe. Cavitary mass right lower lobe. This is approximately stable. Please note: No preliminary report/ innterpretation of this examination provided by emergency department personnel.
--- NOTE | 2017-04-01 09:51 | CP.PCM.CON ---
History of Present Illness - History of Present Illness History of Present Illness: This patient who is 66 years of age admitted with high blood pressure because he was not taking medication my understanding that he is homeless. Patient has multiple admission in the past for high blood pressure diabetes among other things and congestive cardiomyopathy and patient does not take medication and he keep coming back intermittently with this multitude of medical problem Patient diagnosed previously to have nephrotic syndrome proteinuria was about 9 gm He had previously ultrasound of the kidney as well and cardiology evaluation was diagnosis of congestive cardiomyopathy with history of chronic kidney disease Review of Systems - Constitutional Constitutional: absent: Chills - EENT Eyes: As Per HPI Nose/Mouth/Throat: As Per HPI - Cardiovascular Cardiovascular: Dyspnea, Leg Edema. absent: Chest Pain - Respiratory Respiratory: Dyspnea - Gastrointestinal Gastrointestinal: absent: Coffee Ground Emesis, Excessive Flatus - Genitourinary Genitourinary: Nocturia - Musculoskeletal Musculoskeletal: Muscle Weakness - Neurological Neurological: As Per HPI - Psychiatric Psychiatric: As Per HPI - Endocrine Endocrine: As Per HPI Past Patient History - Infectious Disease Hx of Infectious Diseases: None - Tetanus Immunizations Tetanus Immunization: Unknown - Past Medical History & Family History Past Medical History?: Yes - Past Social History Smoking Status: Light Smoker < 10 Cigarettes Daily - CARDIAC Hx Congestive Heart Failure: Yes Hx Hypercholesterolemia: No Hx Hypertension: Yes Hx Peripheral Edema: Yes - PULMONARY Hx Chronic Obstructive Pulmonary Disease (COPD): No Hx Pneumonia: Yes - NEUROLOGICAL HX Cerebrovascular Accident: No - HEENT Hx HEENT Problems: No - RENAL Hx Chronic Kidney Disease: No - ENDOCRINE/METABOLIC Hx Hypothyroidism: No - HEMATOLOGICAL/ONCOLOGICAL Hx Human Immunodeficiency Virus (HIV): No - INTEGUMENTARY Hx Dermatological Problems: Yes - MUSCULOSKELETAL/RHEUMATOLOGICAL Hx Arthritis: No Hx Rheumatoid Arthritis: No - GASTROINTESTINAL Hx Gastrointestinal Disorders: No - GENITOURINARY/GYNECOLOGICAL Hx Genitourinary Disorders: No - PSYCHIATRIC Hx Anxiety: Yes Hx Bipolar Disorder: Yes Hx Depression: Yes - SURGICAL HISTORY Hx Surgeries: No - ANESTHESIA Hx Anesthesia: Yes Hx Anesthesia Reactions: No Hx Malignant Hyperthermia: No Meds Allergies/Adverse Reactions: Allergies Allergy/AdvReac Type Severity Reaction Status Date / Time No Known Allergies Allergy Verified 12/15/16 18:07 - Medications Medications: Current Medications Amlodipine Besylate (Norvasc) 10 mg PO DAILY ON LICENSE OF [facility] Aspirin (Ecotrin) 81 mg PO DAILY ON LICENSE OF [facility] Last Admin: 04/01/17 08:47 Dose: 81 mg Atorvastatin Calcium (Lipitor) 40 mg PO DAILY ON LICENSE OF [facility] Last Admin: 04/01/17 08:48 Dose: 40 mg Dextrose (Dextrose 50% Inj) 0 ml IV STAT PRN; Protocol PRN Reason: Hyglycemia Protocol Dextrose (Glutose 15) 0 gm PO ONCE PRN; Protocol PRN Reason: Hypoglycemia Protocol Furosemide (Lasix) 40 mg PO DAILY ON [facility] OF [facility] Last Admin: 04/01/17 08:47 Dose: 40 mg Glipizide (Glucotrol) 10 mg PO BID ON [facility] OF [facility] Last Admin: 04/01/17 08:47 Dose: 10 mg Glucagon (Glucagen Diagnostic Kit) 0 mg IM STAT PRN; Protocol PRN Reason: Hypoglycemia Protocol Heparin Sodium (Porcine) (Heparin) 5,000 units SC Q8 ON [facility] OF [facility] PRN Reason: Protocol Last Admin: 04/01/17 08:50 Dose: 5,000 units Hydralazine HCl (Apresoline) 50 mg PO TID ON LICENSE OF [facility] Lisinopril (Zestril) 40 mg PO DAILY ON LICENSE OF [facility] Metoprolol Tartrate (Lopressor) 50 mg PO BID ON LICENSE OF [facility] Pentoxifylline (Pentoxil) 400 mg PO TID ON LICENSE OF [facility] Last Admin: 04/01/17 08:47 Dose: 400 mg Spironolactone (Aldactone) 50 mg PO DAILY ON LICENSE OF [facility] Last Admin: 04/01/17 08:47 Dose: 50 mg Physical Exam - Constitutional Appears: No Acute Distress - ENT Exam ENT Exam: Mucous Membranes Moist - Respiratory Exam Respiratory Exam: NORMAL BREATHING PATTERN. absent: Chest Wall Tenderness - Cardiovascular Exam Cardiovascular Exam: absent: JVD, Rubs - GI/Abdominal Exam GI & Abdominal Exam: Normal Bowel Sounds - Extremities Exam Extremities exam: Negative for: calf tenderness - Back Exam Back exam: absent: CVA tenderness (L), CVA tenderness (R) - Neurological Exam Neurological exam: Alert Results - Vital Signs Recent Vital Signs: Last Vital Signs Temp 98.2 F 04/01/17 08:00 Pulse 66 04/01/17 08:49 Resp 18 04/01/17 08:00 BP 160/63 H 04/01/17 08:49 Pulse Ox 97 04/01/17 08:00 - Labs Result Diagrams: 04/01/17 04:30 04/01/17 04:30 Labs: Laboratory Results - last 24 hr 03/31/17 03/31/17 03/31/17 22:40 22:50 22:50 WBC 7.9 RBC 3.15 L Hgb 10.1 L Hct 30.0 L MCV 95.4 H MCH 31.9 H MCHC 33.5 RDW 15.0 H Plt Count 224 MPV 9.8 Neut % (Auto) 65.6 Lymph % (Auto) 24.4 [place] % (Auto) 6.6 Eos % (Auto) 2.2 Baso % (Auto) 1.2 Neut # 5.2 Lymph # 1.9 [place] # 0.5 Eos # 0.2 Baso # 0.1 Sodium 145 Potassium 3.9 Chloride 116 H Carbon Dioxide 20 L Anion Gap 13 BUN 46 H Creatinine 2.0 H Est GFR ( Amer) 41 Est GFR (Non-Af Amer) 34 POC Glucose (mg/dL) 160 H Random Glucose 135 H Calcium 8.0 L Total Bilirubin 0.3 AST 23 ALT 26 Alkaline Phosphatase 74 Troponin I 0.0290 NT-Pro-B Natriuret Pep 50663 H Total Protein 5.6 L Albumin 2.8 L Globulin 2.8 Albumin/Globulin Ratio 1.0 Urine Color Urine Clarity Urine pH Ur Specific [place] Urine Protein Urine Glucose (UA) Urine Ketones Urine Blood Urine Nitrate Urine Bilirubin Urine Urobilinogen Ur Leukocyte Esterase Urine RBC (Auto) Urine Microscopic WBC Ur Squamous Epith Cells Urine Bacteria Hyaline Casts Urine Opiates Screen Urine Methadone Screen Ur Barbiturates Screen Ur Phencyclidine Scrn Ur Amphetamines Screen U Benzodiazepines Scrn U Oth Cocaine Metabols U Cannabinoids Screen Alcohol, Quantitative < 10 03/31/17 03/31/17 04/01/17 23:21 23:21 04:30 WBC 7.2 RBC 3.17 L Hgb 10.1 L Hct 30.3 L MCV 95.8 H MCH 32.0 H MCHC 33.4 RDW 15.0 H Plt Count 209 MPV 10.1 Neut % (Auto) 66.0 Lymph % (Auto) 21.5 [place] % (Auto) 8.1 Eos % (Auto) 3.1 Baso % (Auto) 1.3 Neut # 4.8 Lymph # 1.5 [place] # 0.6 Eos # 0.2 Baso # 0.1 Sodium Potassium Chloride Carbon Dioxide Anion Gap BUN Creatinine Est GFR ( Amer) Est GFR (Non-Af Amer) POC Glucose (mg/dL) Random Glucose Calcium Total Bilirubin AST ALT Alkaline Phosphatase Troponin I NT-Pro-B Natriuret Pep Total Protein Albumin Globulin Albumin/Globulin Ratio Urine Color Yellow Urine Clarity Slighty-cloudy Urine pH 6.0 Ur Specific [place] 1.018 Urine Protein >=500 Urine Glucose (UA) >=500 Urine Ketones Negative Urine Blood Small Urine Nitrate Negative Urine Bilirubin Negative Urine Urobilinogen 0.2-1.0 Ur Leukocyte Esterase Neg Urine RBC (Auto) 7 H Urine Microscopic WBC 4 Ur Squamous Epith Cells < 1 Urine Bacteria Rare Hyaline Casts 0-2 Urine Opiates Screen Negative Urine Methadone Screen Negative Ur Barbiturates Screen Negative Ur Phencyclidine Scrn Negative Ur Amphetamines Screen Negative U Benzodiazepines Scrn Negative U Oth Cocaine Metabols Negative U Cannabinoids Screen Negative Alcohol, Quantitative 04/01/17 04:30 WBC RBC Hgb Hct MCV MCH MCHC RDW Plt Count MPV Neut % (Auto) Lymph % (Auto) [place] % (Auto) Eos % (Auto) Baso % (Auto) Neut # Lymph # [place] # Eos # Baso # Sodium 144 Potassium 3.6 Chloride 118 H Carbon Dioxide 19 L Anion Gap 11 BUN 43 H Creatinine 1.8 H Est GFR ( Amer) 46 Est GFR (Non-Af Amer) 38 POC Glucose (mg/dL) Random Glucose 173 H Calcium 8.0 L Total Bilirubin 0.2 AST 20 ALT 23 Alkaline Phosphatase 67 Troponin I 0.0310 NT-Pro-B Natriuret Pep Total Protein 5.2 L Albumin 2.6 L Globulin 2.6 Albumin/Globulin Ratio 1.0 Urine Color Urine Clarity Urine pH Ur Specific [place] Urine Protein Urine Glucose (UA) Urine Ketones Urine Blood Urine Nitrate Urine Bilirubin Urine Urobilinogen Ur Leukocyte Esterase Urine RBC (Auto) Urine Microscopic WBC Ur Squamous Epith Cells Urine Bacteria Hyaline Casts Urine Opiates Screen Urine Methadone Screen Ur Barbiturates Screen Ur Phencyclidine Scrn Ur Amphetamines Screen U Benzodiazepines Scrn U Oth Cocaine Metabols U Cannabinoids Screen Alcohol, Quantitative Assessment & Plan (1) Chronic kidney disease, stage 3 (moderate) Assessment and Plan: Patient with history of ckd3 admitted with elevated blood pressure which is getting better after he was started on medications Medications reviewed patient taken lisinopril, Lasix, hydralazine, Norvasc And at the present blood pressure much better controlled is still have one plus pitting edema And previously patient has evaluation not long time ago was nephrotic syndrome proteinuria and it is believed that his chronic kidney disease most likely related to diabetic nephropathy however other etiology cannot be ruled out For now patient is stable and eventually at later time patient may need kidney biopsy when he is more stable regarding his blood pressure and cardiac status. Status: Acute (2) CHF (congestive heart failure) Status: Acute (3) Uncontrolled hypertension Status: Acute
--- NOTE | 2017-04-01 12:46 | RAD ---
HISTORY: Shortness of breath COMPARISON: 03/31/2017 TECHNIQUE: Chest PA and lateral FINDINGS: LUNGS: No definite infiltrate. Take heterogeneous nodule identified lateral to right hilum consistent with cavitary nodule seen on CT examination of 03/06/2017. Not appreciated in lateral projection. PLEURA: Moderate left pleural effusion. No evidence of right pleural effusion. CARDIOVASCULAR: Normal. OSSEOUS STRUCTURES: No significant abnormalities. VISUALIZED UPPER ABDOMEN: Normal. OTHER FINDINGS: None. IMPRESSION: Vague nodule again appreciated lateral to right hilum unchanged from 03/31. Moderate left pleural effusion.
--- NOTE | 2017-04-02 01:17 | CARD ---
APPROVED REPORT EKG Measurement Heart [id number] IN [id number] [id number] <Conclusion> Normal sinus rhythm Prolonged QT Abnormal ECG
[2017-04-02 05:51] LABS: HEMATOCRIT 25.8 % (35.0-51.0); MEAN CELL VOLUME 94.4 fl (80.0-94.0); MEAN CORPUSCULAR HEMOGLOBIN 32.4 pg (27.0-31.0); MEAN CORPUSCULAR HGB CONC 34.3 g/dL (33.0-37.0); RED CELL DISTRIBUTION WIDTH 14.9 % (11.5-14.5); WHITE BLOOD COUNT 6.1 K/uL (4.8-10.8)
[2017-04-02 06:39] LABS: ALB/GLOB RATIO 0.9 (1.0-2.1); ALKALINE PHOSPHATASE 53 U/L (38-126); ALT/SGPT 20 U/L (21-72); AST/SGOT 17 U/L (17-59); BILIRUBIN,TOTAL < 0.1 mg/dl (0.2-1.3); BLOOD UREA NITROGEN 47 mg/dl (9-20); CALCIUM 7.8 mg/dL (8.4-10.2); CARBON DIOXIDE 22 mmol/L (22-30); CHLORIDE 115 mmol/L (98-107); GFR AFRICAN-AMERICAN 46; GLUCOSE,RANDOM 112 mg/dL (75-110); SODIUM 142 mmol/l (132-148); TOTAL PROTEIN 4.6 G/DL (6.3-8.2)
--- NOTE | 2017-04-02 08:38 | CP.PCM.PN ---
Subjective - Date & Time of Evaluation Date of Evaluation: 04/02/17 Time of Evaluation: 08:28 - Subjective Subjective: 66 y/o male seen and evaluated at bedside. Patient is in NAD and is AAOx3. Patient states that his breathing is getting better but now he feels fatigue. Patient states that he feels weakness and feels little dizzy when he is walking. Patient continues to complain about the upper back pain. Patient denies of any recent F/N/V/C/SOB/CP today. Patient denies of any bleeding or pain during urinating. When asked, patient agrees to having dark black color stools. Patient denies of any other complains at this time. Objective - Vital Signs/Intake and Output Vital Signs (last 24 hours): Temp Pulse Resp BP Pulse Ox 98.4 F 64 19 163/73 H 96 04/02/17 05:00 04/02/17 05:00 04/02/17 05:00 04/02/17 05:00 04/02/17 05:00 - Medications Medications: Current Medications Amlodipine Besylate (Norvasc) 10 mg PO DAILY [facility] Last Admin: 04/01/17 09:00 Dose: 10 mg Aspirin (Ecotrin) 81 mg PO DAILY [facility] Last Admin: 04/01/17 08:47 Dose: 81 mg Atorvastatin Calcium (Lipitor) 40 mg PO DAILY [facility] Last Admin: 04/01/17 08:48 Dose: 40 mg Dextrose (Dextrose 50% Inj) 0 ml IV STAT PRN; Protocol PRN Reason: Hyglycemia Protocol Dextrose (Glutose 15) 0 gm PO ONCE PRN; Protocol PRN Reason: Hypoglycemia Protocol Furosemide (Lasix) 40 mg PO DAILY [facility] Last Admin: 04/01/17 08:47 Dose: 40 mg Glipizide (Glucotrol) 10 mg PO BID [facility] Last Admin: 04/01/17 16:24 Dose: 10 mg Glucagon (Glucagen Diagnostic Kit) 0 mg IM STAT PRN; Protocol PRN Reason: Hypoglycemia Protocol Heparin Sodium (Porcine) (Heparin) 5,000 units SC Q8 [facility] PRN Reason: Protocol Last Admin: 04/02/17 00:47 Dose: Not Given Hydralazine HCl (Apresoline) 50 mg PO TID [facility] Last Admin: 04/01/17 16:20 Dose: 50 mg Lisinopril (Zestril) 40 mg PO DAILY [facility] Last Admin: 04/01/17 16:24 Dose: 40 mg Metoprolol Tartrate (Lopressor) 50 mg PO BID [facility] Last Admin: 04/01/17 16:21 Dose: 50 mg Pantoprazole Sodium (Protonix Ec Tab) 40 mg PO DAILY [facility] Pentoxifylline (Pentoxil) 400 mg PO TID [facility] Last Admin: 04/01/17 16:23 Dose: 400 mg Spironolactone (Aldactone) 50 mg PO DAILY [facility] Last Admin: 04/01/17 08:47 Dose: 50 mg - Labs Labs: 04/02/17 05:00 04/02/17 05:00 - Constitutional Appears: Well, Non-toxic, No Acute Distress - Head Exam Head Exam: ATRAUMATIC - Eye Exam Eye Exam: EOMI, Normal appearance, PERRL - ENT Exam ENT Exam: Mucous Membranes Moist - Neck Exam Neck Exam: Full ROM, Normal Inspection - Respiratory Exam Respiratory Exam: Decreased Breath Sounds, NORMAL BREATHING PATTERN Additional comments: crackles present during inspiration - Cardiovascular Exam Cardiovascular Exam: REGULAR RHYTHM - GI/Abdominal Exam GI & Abdominal Exam: Normal Bowel Sounds - Extremities Exam Extremities Exam: Normal Capillary Refill, Pedal Edema Additional comments: Pedal pulses are slightly diminished 1/4 bilaterally on DP and PT, +1 pitting edema noted on at the distal medial leg as well as dorsum of the feet bilaterally mild tenderness on palpation of the calf bilaterally - Neurological Exam Neurological Exam: Alert, Awake, Oriented x3 - Psychiatric Exam Psychiatric exam: Normal Affect, Normal Mood Assessment and Plan - Assessment and Plan (Free Text) Assessment: 66 y/o male with PMHx of CHF, DM, HTN, CKD Stage III, Anemia, Lung Nodule seen and evaluated at bedside for hypertensive crisis Plan: (1) CHF exacerbation Acute on chronic exacerbation with BNP over 10,000 and not taking medications. Based on prior echo there is a component of systolic and diastolic dysfunction. - restart medication - Trend Troponins - 2-view CXR (04/01): - Impression: Vague nodule lateral to right hulum unchanged from 03/31. Moderate left pleural effusion - CT scan from previous admission (04/05): - Partial collapse of cavitary component of complex nodule/mass. Stable solid component 9 x 12 mm. Bilateral pleural effusion - (03/10): underwent left thoracentesis for pleural effusion: removed 1100 cc of clear yellow fluid - Daily weights - I&Os Status: Acute (2) DVT prophylaxis Assessment and Plan: Heparin 5,000U, SC, Q8H - On hold Status: Acute (3) Diabetes Assessment and Plan: Not well-controlled, re-start medication -Glipizide 10 mg PO BID Status: Chronic (4) HTN (hypertension) Assessment and Plan: Not well-controlled, given patient's history of not taking medication clonidine , although cheap, is a concerning drug due to BP rebound when abruptly stopped. Reconsider BP medication and patient will likely need a meds to beds program to increase compliance. - Re-start medication -Amlodipine Besylate 10 mg PO qd -Atorvastatin 40 mg PO qd -Furosemide 40 mg IV once dose given today -Furosemide 80 mg PO qd temporarily until the blood pressure is stabilized -Hydralazine 50 mg PO TID -Lisinopril 40 mg PO qd -Metoprolol 50 mg PO BID -Spironolactone 50 mg PO qd - monitor BP Status: Chronic (5) Chronic kidney disease (CKD) Assessment and Plan: CKD Stage III at last visit and known to Dr Trimble who felt proteinuria was diabetic nephropathy vs. MGUS. - c/w hydralazine/lopressor - Restrict fluid to 1500ml/day (recommendation from last visit) - Will consider kidney biopsy once stable prior to discharge - Nephrology Recs are appreciated Status: Chronic (6) Lung nodule Assessment and Plan: Cavitary lesion at superior aspect of RLL. Lung cytology of LEFT thoracentesis at prior visit negative for malignancy, however it is noted there is a recurrence of LEFT pleural effusion this admission but this is in the setting of low oncotic pressure combined with heart failure picture. Status: Chronic (7) Anemia due to chronic kidney disease Assessment and Plan: As per Dr Iraheta, who was consulted at last visit. Remains stable. Repeat H&H Type and screen Check Iron levels Venofer will continue to monitor patient's Hbg and Hct Status: Chronic
[2017-04-02 11:16] LABS: HEMATOCRIT 28.4 % (35.0-51.0)
[2017-04-02 11:31] LABS: IRON 76 ug/dL (49-181)
--- NOTE | 2017-04-02 11:58 | CP.PCM.PN ---
Subjective - Date & Time of Evaluation Date of Evaluation: 04/02/17 Time of Evaluation: 11:57 - Subjective Subjective: Patient is up and around No new event reported No significant complaining Blood pressure is still elevated despite 4 antihypertensive medications Leg edema at least 1+ Impression and plan Blood pressure is still elevated Chronic kidney disease stage III stable creatinine came down to 1.8 As discussed with the resident to increase Lasix from 40 mg to 80 mg for a few days and monitor his volume status Objective - Vital Signs/Intake and Output Vital Signs (last 24 hours): Temp Pulse Resp BP Pulse Ox 98.3 F 103 H 18 173/74 H 97 04/02/17 08:00 04/02/17 08:51 04/02/17 08:00 04/02/17 08:52 04/02/17 08:00 - Medications Medications: Current Medications Amlodipine Besylate (Norvasc) 10 mg PO DAILY [facility] Last Admin: 04/02/17 08:51 Dose: 10 mg Aspirin (Ecotrin) 81 mg PO DAILY [facility] Last Admin: 04/02/17 08:50 Dose: 81 mg Atorvastatin Calcium (Lipitor) 40 mg PO DAILY [facility] Last Admin: 04/01/17 08:48 Dose: 40 mg Dextrose (Dextrose 50% Inj) 0 ml IV STAT PRN; Protocol PRN Reason: Hyglycemia Protocol Dextrose (Glutose 15) 0 gm PO ONCE PRN; Protocol PRN Reason: Hypoglycemia Protocol Furosemide (Lasix) 80 mg PO DAILY [facility] Glipizide (Glucotrol) 10 mg PO BID [facility] Last Admin: 04/02/17 08:50 Dose: 10 mg Glucagon (Glucagen Diagnostic Kit) 0 mg IM STAT PRN; Protocol PRN Reason: Hypoglycemia Protocol Heparin Sodium (Porcine) (Heparin) 5,000 units SC Q8 [facility] PRN Reason: Protocol Last Admin: 04/02/17 08:49 Dose: Not Given Hydralazine HCl (Apresoline) 50 mg PO TID [facility] Last Admin: 04/02/17 08:49 Dose: 50 mg Iron Sucrose 200 mg/ Sodium (Chloride) 110 mls @ 110 mls/hr IVPB DAILY [facility] Stop: 04/05/17 10:16 Lisinopril (Zestril) 40 mg PO DAILY [facility] Last Admin: 04/02/17 08:49 Dose: 40 mg Metoprolol Tartrate (Lopressor) 50 mg PO BID [facility] Last Admin: 04/02/17 08:48 Dose: 50 mg Pantoprazole Sodium (Protonix Ec Tab) 40 mg PO DAILY [facility] Pentoxifylline (Pentoxil) 400 mg PO TID [facility] Last Admin: 04/02/17 08:50 Dose: 400 mg Spironolactone (Aldactone) 50 mg PO DAILY [facility] Last Admin: 04/02/17 08:50 Dose: 50 mg - Labs Labs: 04/02/17 10:40 04/02/17 05:00 Assessment and Plan (1) Chronic kidney disease, stage 3 (moderate) Status: Acute (2) CHF (congestive heart failure) Status: Acute (3) Uncontrolled hypertension Status: Acute
[2017-04-02] MEDS: Pantoprazole 40 mg EC Tab PO SCH (13:30)
[2017-04-03 08:02] VITALS: RESP 18
[2017-04-03] MEDS: Pantoprazole 40 mg EC Tab PO SCH (08:06)
--- NOTE | 2017-04-03 08:58 | CP.PCM.PN ---
Subjective - Date & Time of Evaluation Date of Evaluation: 04/03/17 Time of Evaluation: 08:52 - Subjective Subjective: Family medicine progress note 66 y/o male seen and evaluated at bedside. Patient is AAOx3 and is in NAD. Patient agrees to having little shortness of breathe but has gotten better since the admission. Patient states that he continues to have pain in the mid back on the right side. Patient states that same pain occurs on the front right chest as well. Patient denies of any acute overnight events. Patient states that his weakness has improved a little but does not notice a big difference. When asked, patient denies of taking any medications since yesterday evening. Patient denies of any recent F/N/V/C/CP/diarrhea. Patient denies of any other complains at this time. Objective - Vital Signs/Intake and Output Vital Signs (last 24 hours): Temp Pulse Resp BP Pulse Ox 98.4 F 74 18 173/69 H 98 04/03/17 08:02 04/03/17 08:07 04/03/17 08:02 04/03/17 08:08 04/03/17 08:02 - Medications Medications: Current Medications Amlodipine Besylate (Norvasc) 10 mg PO DAILY [facility] Last Admin: 04/03/17 08:07 Dose: 10 mg Aspirin (Ecotrin) 81 mg PO DAILY [facility] Last Admin: 04/03/17 08:06 Dose: 81 mg Atorvastatin Calcium (Lipitor) 40 mg PO DAILY [facility] Last Admin: 04/03/17 08:06 Dose: 40 mg Dextrose (Dextrose 50% Inj) 0 ml IV STAT PRN; Protocol PRN Reason: Hyglycemia Protocol Dextrose (Glutose 15) 0 gm PO ONCE PRN; Protocol PRN Reason: Hypoglycemia Protocol Furosemide (Lasix) 80 mg PO DAILY [facility] Last Admin: 04/03/17 08:08 Dose: 80 mg Glipizide (Glucotrol) 10 mg PO BID [facility] Last Admin: 04/03/17 08:06 Dose: 10 mg Glucagon (Glucagen Diagnostic Kit) 0 mg IM STAT PRN; Protocol PRN Reason: Hypoglycemia Protocol Heparin Sodium (Porcine) (Heparin) 5,000 units SC Q8 [facility] PRN Reason: Protocol Last Admin: 04/02/17 08:49 Dose: Not Given Hydralazine HCl (Apresoline) 50 mg PO TID [facility] Last Admin: 04/03/17 08:06 Dose: 50 mg Iron Sucrose 200 mg/ Sodium (Chloride) 110 mls @ 110 mls/hr IVPB DAILY [facility] Stop: 04/05/17 10:16 Last Admin: 04/02/17 13:30 Dose: 110 mls/hr Lisinopril (Zestril) 40 mg PO DAILY [facility] Last Admin: 04/03/17 08:07 Dose: 40 mg Metoprolol Tartrate (Lopressor) 50 mg PO BID [facility] Last Admin: 04/03/17 08:07 Dose: 50 mg Pantoprazole Sodium (Protonix Ec Tab) 40 mg PO DAILY [facility] Last Admin: 04/03/17 08:06 Dose: 40 mg Pentoxifylline (Pentoxil) 400 mg PO TID [facility] Last Admin: 04/03/17 08:07 Dose: 400 mg Spironolactone (Aldactone) 50 mg PO DAILY [facility] Last Admin: 04/03/17 08:08 Dose: 50 mg - Labs Labs: 04/02/17 10:40 04/02/17 05:00 - Constitutional Appears: Well, Non-toxic, No Acute Distress - Head Exam Head Exam: ATRAUMATIC - Eye Exam Eye Exam: EOMI, PERRL Pupil Exam: NORMAL ACCOMODATION, PERRL - ENT Exam ENT Exam: Mucous Membranes Moist - Neck Exam Neck Exam: Full ROM, Normal Inspection - Respiratory Exam Respiratory Exam: NORMAL BREATHING PATTERN Additional comments: Crackles noted on inspiration on lower left during inspiration - Cardiovascular Exam Cardiovascular Exam: REGULAR RHYTHM - GI/Abdominal Exam GI & Abdominal Exam: Normal Bowel Sounds - Rectal Exam Rectal Exam: Deferred - Extremities Exam Extremities Exam: Full ROM, Pedal Edema Additional comments: +1 pitting edema noted on the distal medial aspect of the leg as well as dorsum of the feet bilaterally - Back Exam Back Exam: NORMAL INSPECTION - Neurological Exam Neurological Exam: Alert, Awake, Oriented x3 - Psychiatric Exam Psychiatric exam: Normal Affect, Normal Mood - Skin Skin Exam: Dry, Normal Color Assessment and Plan - Assessment and Plan (Free Text) Assessment: 66 y/o male with PMHx of CHF, DM, HTN, CKD Stage III, Anemia, Lung Nodule seen and evaluated at bedside for hypertensive crisis Plan: (1) CHF exacerbation Acute on chronic exacerbation with BNP over 10,000 and not taking medications. Based on prior echo there is a component of systolic and diastolic dysfunction. - restart medication - Trend Troponins - 2-view CXR (04/01): - Impression: Vague nodule lateral to right hulum unchanged from 03/31. Moderate left pleural effusion - CT scan from previous admission (04/05): - Partial collapse of cavitary component of complex nodule/mass. Stable solid component 9 x 12 mm. Bilateral pleural effusion - (03/10): underwent left thoracentesis for pleural effusion: removed 1100 cc of clear yellow fluid - Daily weights - I&Os Status: Acute (2) DVT prophylaxis Assessment and Plan: Heparin 5,000U, SC, Q8H - On hold Status: Acute (3) Diabetes Assessment and Plan: Not well-controlled, re-start medication -Glipizide 10 mg PO BID Status: Chronic (4) HTN (hypertension) Assessment and Plan: Not well-controlled, given patient's history of not taking medication clonidine , although cheap, is a concerning drug due to BP rebound when abruptly stopped. Reconsider BP medication and patient will likely need a meds to [facility] program to increase compliance. - Re-start medication -Amlodipine Besylate 10 mg PO qd -Atorvastatin 40 mg PO qd -Furosemide 80 mg PO qd temporarily until the blood pressure is stabilized -Hydralazine 50 mg PO TID -Lisinopril 40 mg PO qd -Metoprolol 50 mg PO BID -Spironolactone 50 mg PO qd - monitor BP Status: Chronic (5) Chronic kidney disease (CKD) Assessment and Plan: CKD Stage III at last visit and known to Dr Trimble who felt proteinuria was diabetic nephropathy vs. MGUS. - c/w hydralazine/lopressor - Restrict fluid to 1500ml/day (recommendation from last visit) - Can benefit from kidney biopsy however due to elevated constant high blood pressure and noncompliance with medications, unable to perform at this time. Will consider of performing as outpatient once stable - Nephrology Recs are appreciated Status: Chronic (6) Lung nodule Assessment and Plan: Cavitary lesion at superior aspect of RLL. Lung cytology of LEFT thoracentesis at prior visit negative for malignancy, however it is noted there is a recurrence of LEFT pleural effusion this admission but this is in the setting of low oncotic pressure combined with heart failure picture. Status: Chronic (7) Anemia due to chronic kidney disease Assessment and Plan: As per Dr Iraheta, who was consulted at last visit. Remains stable. H&H today: - Hbg @ 9.6 (trending up since yesterday @ 8.8), Hct @ 28.4 (trending up since yesterday @ 25.8) Type and screen Check Iron levels - Iron 76, TIBC @ 245 (low), Ferritin 49.3, % sat @ 31% Continue venofer will continue to monitor patient's Hbg and Hct Status: Chronic
[2017-04-03 12:06] VITALS: BP 160/76; PULSE 67
[2017-04-03 12:16] VITALS: TEMP 98.7; O2SAT 96
--- NOTE | 2017-04-03 13:43 | CP.PCM.DIS ---
Provider - Provider Date of Admission: 04/01/17 21:12 Attending physician: Elizabeth Kelley MD Time Spent in preparation of Discharge (in minutes): 20 Hospital Course - Lab Results Lab Results: Most Recent Lab Values WBC 6.1 K/uL (4.8-10.8) 04/02/17 05:00 RBC 2.73 Mil/uL (4.40-5.90) L 04/02/17 05:00 Hgb 9.6 g/dL (12.0-18.0) L 04/02/17 10:40 Hct 28.4 % (35.0-51.0) L 04/02/17 10:40 MCV 94.4 fl (80.0-94.0) H 04/02/17 05:00 MCH 32.4 pg (27.0-31.0) H 04/02/17 05:00 MCHC 34.3 g/dL (33.0-37.0) 04/02/17 05:00 RDW 14.9 % (11.5-14.5) H 04/02/17 05:00 Plt Count 182 K/uL (130-400) 04/02/17 05:00 MPV 10.1 fl (7.2-11.7) 04/01/17 04:30 Neut % (Auto) 66.0 % (50.0-75.0) 04/01/17 04:30 Lymph % (Auto) 21.5 % (20.0-40.0) 04/01/17 04:30 [place] % (Auto) 8.1 % (0.0-10.0) 04/01/17 04:30 Eos % (Auto) 3.1 % (0.0-4.0) 04/01/17 04:30 Baso % (Auto) 1.3 % (0.0-2.0) 04/01/17 04:30 Neut # 4.8 K/uL (1.8-7.0) 04/01/17 04:30 Lymph # 1.5 K/uL (1.0-4.3) 04/01/17 04:30 [place] # 0.6 K/uL (0.0-0.8) 04/01/17 04:30 Eos # 0.2 K/uL (0.0-0.7) 04/01/17 04:30 Baso # 0.1 K/uL (0.0-0.2) 04/01/17 04:30 Sodium 142 mmol/l (132-148) 04/02/17 05:00 Potassium 4.0 MMOL/L (3.6-5.0) 04/02/17 05:00 Chloride 115 mmol/L (98-107) H 04/02/17 05:00 Carbon Dioxide 22 mmol/L (22-30) 04/02/17 05:00 Anion Gap 9 (10-20) L 04/02/17 05:00 BUN 47 mg/dl (9-20) H 04/02/17 05:00 Creatinine 1.8 mg/dL (0.8-1.5) H 04/02/17 05:00 Est GFR ( Amer) 46 04/02/17 05:00 Est GFR (Non-Af Amer) 38 04/02/17 05:00 POC Glucose (mg/dL) 163 mg/dL (65-110) H 04/03/17 10:53 Random Glucose 112 mg/dL (75-110) H 04/02/17 05:00 Calcium 7.8 mg/dL (8.4-10.2) L 04/02/17 05:00 Iron 76 ug/dL (49-181) 04/02/17 10:40 TIBC 245 ug/dL (250-450) L 04/02/17 10:40 % Saturation 31 % (20-55) 04/02/17 10:40 Ferritin 49.3 ng/Ml (17.9-464) 04/02/17 10:40 Total Bilirubin < 0.1 mg/dl (0.2-1.3) L 04/02/17 05:00 AST 17 U/L (17-59) 04/02/17 05:00 ALT 20 U/L (21-72) L 04/02/17 05:00 Alkaline Phosphatase 53 U/L (38-126) 04/02/17 05:00 Troponin I 0.0180 ng/mL (0.00-0.120) 04/01/17 12:25 NT-Pro-B Natriuret Pep 76126 pg/ml (0-900) H 03/31/17 22:50 Total Protein 4.6 G/DL (6.3-8.2) L 04/02/17 05:00 Albumin 2.2 g/dL (3.5-5.0) L 04/02/17 05:00 Globulin 2.4 gm/dL (2.2-3.9) 04/02/17 05:00 Albumin/Globulin Ratio 0.9 (1.0-2.1) L 04/02/17 05:00 Urine Color Yellow (YELLOW) 03/31/17 23:21 Urine Clarity Slighty-cloudy (Clear) 03/31/17 23:21 Urine pH 6.0 (5.0-8.0) 03/31/17 23:21 Ur Specific [place] 1.018 (1.003-1.030) 03/31/17 23:21 Urine Protein >=500 mg/dL (NEGATIVE) 03/31/17 23:21 Urine Glucose (UA) >=500 mg/dL (Normal) 03/31/17 23:21 Urine Ketones Negative mg/dL (NEGATIVE) 03/31/17 23:21 Urine Blood Small (NEGATIVE) 03/31/17 23:21 Urine Nitrate Negative (NEGATIVE) 03/31/17 23:21 Urine Bilirubin Negative (NEGATIVE) 03/31/17 23:21 Urine Urobilinogen 0.2-1.0 mg/dL (0.2-1.0) 03/31/17 23:21 Ur Leukocyte Esterase Neg [place]/uL (Negative) 03/31/17 23:21 Urine RBC (Auto) 7 /hpf (0-3) H 03/31/17 23:21 Urine Microscopic WBC 4 /hpf (0-5) 03/31/17 23:21 Ur Squamous Epith Cells < 1 /hpf (0-5) 03/31/17 23:21 Urine Bacteria Rare (<OCC) 03/31/17 23:21 Hyaline Casts 0-2 /hpf (0-2) 03/31/17 23:21 Urine Opiates Screen Negative (NEGATIVE) 03/31/17 23:21 Urine Methadone Screen Negative (NEGATIVE) 03/31/17 23:21 Ur Barbiturates Screen Negative (NEGATIVE) 03/31/17 23:21 Ur Phencyclidine Scrn Negative (NEGATIVE) 03/31/17 23:21 Ur Amphetamines Screen Negative (NEGATIVE) 03/31/17 23:21 U Benzodiazepines Scrn Negative (NEGATIVE) 03/31/17 23:21 U Oth Cocaine Metabols Negative (NEGATIVE) 03/31/17 23:21 U Cannabinoids Screen Negative (NEGATIVE) 03/31/17 23:21 Alcohol, Quantitative < 10 mg/dl (0-10) 03/31/17 22:50 Blood Type A NEGATIVE 04/02/17 10:40 Antibody Screen Negative 04/02/17 10:40 BBK History Checked Patient has bt 04/02/17 10:40 - Hospital Course Hospital Course: 66 y/o male seen and evaluated at bedside. Patient was admitted for hypertensive crisis. Blood pressure was well managed while his stay here until he refused to take medications. During the stay patient developed anemia which was resolved. Patient was given prescriptions for medications to be taken as an outpatient. Patient to follow up with the PMD once discharged. - Date & Time of H&P Date of H&P: 04/03/17 Time of H&P: 13:43 Discharge Exam - Eye Exam Eye Exam: EOMI, PERRL - ENT Exam ENT Exam: Mucous Membranes Moist - Neck Exam Neck exam: Full Rom, Normal Inspection - Respiratory Exam Respiratory Exam: NORMAL BREATHING PATTERN, UNREMARKABLE - Cardiovascular Exam Cardiovascular Exam: REGULAR RHYTHM - GI/Abdominal Exam GI & Abdominal Exam: Normal Bowel Sounds, Unremarkable - Extremities Exam Extremities exam: full ROM, normal inspection - Back Exam Back exam: FULL ROM, NORMAL INSPECTION - Neurological Exam Neurological exam: Alert, Oriented x3 - Psychiatric Exam Psychiatric exam: Normal Affect, Normal Mood - Skin Skin Exam: Dry, Normal Color Discharge Plan - Discharge Medications Prescriptions: amLODIPine [Norvasc] 10 mg PO DAILY #30 tab Aspirin [Ecotrin] 81 mg PO DAILY #30 tabec Atorvastatin [Lipitor] 40 mg PO DAILY #30 tab Furosemide [Lasix] 40 mg PO DAILY #30 tab hydrALAZINE [Apresoline] 50 mg PO TID #90 tab Lisinopril [Zestril] 40 mg PO DAILY #30 tab Metoprolol Tartrate [Lopressor] 50 mg PO BID #60 tab Pentoxifylline [Pentoxil] 400 mg PO TID #90 ter Spironolactone [Aldactone] 25 mg PO DAILY #30 tab - Follow Up Plan Condition: FAIR Disposition: HOME/ ROUTINE Instructions: Heart Failure (DC) Additional Instructions: patient to follow up with [facility] roe in 1-2 days follow up with nephro as directed -Can benefit from kidney biopsy however due to elevated constant high blood pressure and noncompliance with medications, unable to perform at this time. Will consider of performing as outpatient once stable patient urged to take medication as directed (hx of non compliance) stable to DC home today Referrals: [facility] [place] [Outside] Lauro Davidson MD [Staff Provider] -
== END 2017-04-03 15:53 | disposition home or self-care (01) | DRG 543 ==
LOC: H.ER 20:55 → H.ERHOLD 23:26 → H.TEL 04-01 02:49 → OBSVTOIN 04-01 21:12
PROVIDERS: ADMIT Family Medicine Geriatric Medicine; ATTEND Family Medicine Geriatric Medicine
DX: I16.9 Hypertensive crisis, unspecified (principal); I50.43 Acute on chronic combined systolic (congestive) and diastolic (congestive) heart failure; I42.0 Dilated cardiomyopathy; E11.21 Type 2 diabetes mellitus with diabetic nephropathy; E11.22 Type 2 diabetes mellitus with diabetic chronic kidney disease; N18.3 Chronic kidney disease, stage 3 (moderate); J98.11 Atelectasis; I13.0 Hypertensive heart and chronic kidney disease with heart failure and stage 1 through stage 4 chronic kidney disease, or unspecified chronic kidney disease; R91.1 Solitary pulmonary nodule; G89.29 Other chronic pain; D63.1 Anemia in chronic kidney disease; F31.9 Bipolar disorder, unspecified; F41.9 Anxiety disorder, unspecified; Z91.14 Patient's other noncompliance with medication regimen; F17.210 Nicotine dependence, cigarettes, uncomplicated

== ENCOUNTER 2017-04-13 19:42 | Inpatient (IN) | payer SELFPAY ==
[2017-04-13 19:43] VITALS: BMI 23.8
[2017-04-13 20:33] LABS: BASO # 0.1 K/uL (0.0-0.2); BASO % 1.1 % (0.0-2.0); EOS # 0.2 K/uL (0.0-0.7); EOS % 2.4 % (0.0-4.0); HEMATOCRIT 30.5 % (35.0-51.0); MEAN CORPUSCULAR HGB CONC 34.4 g/dL (33.0-37.0); MONO # 0.5 K/uL (0.0-0.8); MONO % 6.4 % (0.0-10.0); NEUT # 5.3 K/uL (1.8-7.0); NEUT % 65.1 % (50.0-75.0); RED CELL DISTRIBUTION WIDTH 15.6 % (11.5-14.5); WHITE BLOOD COUNT 8.1 K/uL (4.8-10.8)
--- NOTE | 2017-04-13 20:34 | ED PDOC ---
HPI: SOB/CHF/COPD Time Seen by Provider: 04/13/17 19:49 Chief Complaint (Nursing): Lower Extremity Problem/Injury Chief Complaint (Provider): leg edema History Per: Patient History/Exam Limitations: no limitations Onset/Duration Of Symptoms: Days (2), Gradual, Persistent Associated Symptoms: Productive Cough, Leg/Calf Pain, Ankle/Leg Swelling, Light- headedness. denies: Chest Pain Recently: Hospitalized Past Medical History Reviewed: Historical Data, Nursing Documentation, Vital Signs Vital Signs: Last Vital Signs Temp 98.8 F 04/13/17 19:46 Pulse 79 04/13/17 19:46 Resp 20 04/13/17 19:46 BP 168/87 H 04/13/17 22:02 Pulse Ox 96 04/13/17 20:35 - Medical History PMH: Anxiety, Bipolar Disorder, CHF, Depression, Diabetes (type II), HTN, Peripheral Edema, Pneumonia, Chronic Pain (b/l leg pain) Denies: Arthritis, COPD, HIV, Hypercholesterolemia, Hypothyroidism, Chronic Kidney Disease, Rheumatoid Arthritis - Family History Family History: States: Unknown Family Hx - Living Arrangements Living Arrangements: Other (Homeless) - Social History Current smoker - smoking cessation education provided: Yes - Home Medications Home Medications: Ambulatory Orders Medication Instructions Recorded GlipiZIDE [Glucotrol] 10 mg PO BID #60 tab 03/12/17 Aspirin [Ecotrin] 81 mg PO DAILY #30 tabec 04/03/17 Atorvastatin [Lipitor] 40 mg PO DAILY #30 tab 04/03/17 Furosemide [Lasix] 40 mg PO DAILY #30 tab 04/03/17 Lisinopril [Zestril] 40 mg PO DAILY #30 tab 04/03/17 Metoprolol Tartrate [Lopressor] 50 mg PO BID #60 tab 04/03/17 Pentoxifylline [Pentoxil] 400 mg PO TID #90 ter 04/03/17 Spironolactone [Aldactone] 25 mg PO DAILY #30 tab 04/03/17 amLODIPine [Norvasc] 10 mg PO DAILY #30 tab 04/03/17 hydrALAZINE [Apresoline] 50 mg PO TID #90 tab 04/03/17 cloNIDine [Catapres] 1 tab PO BID 04/13/17 - Allergies Allergies/Adverse Reactions: Allergies Allergy/AdvReac Type Severity Reaction Status Date / Time No Known Allergies Allergy Verified 12/15/16 18:07 Review of Systems ROS Statement: Except As Marked, All Systems Reviewed And Found Negative (and as per HPI) Constitutional: Positive for: Weakness, Malaise. Negative for: Fever Cardiovascular: Positive for: Chest Pain (intermittently but not currently), Edema, Light Headedness Respiratory: Positive for: Cough, Shortness of Breath, Sputum. Negative for: Pleuritic Pain Musculoskeletal: Positive for: Leg Pain Physical Exam - Reviewed Nursing Documentation Reviewed: Yes Vital Signs Reviewed: Yes - Physical Exam Appears: Positive for: Well, Non-toxic, No Acute Distress (dissheveled and unkempt) Head Exam: Positive for: ATRAUMATIC, NORMOCEPHALIC Skin: Positive for: Warm, Dry Eye Exam: Positive for: EOMI, PERRL ENT: Negative for: Pharyngeal Erythema, Tonsillar Exudate Neck: Positive for: Painless ROM, Supple Cardiovascular/Chest: Positive for: Regular Rate, Rhythm, Edema, Murmur Respiratory: Positive for: Decreased Breath Sounds (diffusely), Other (poor air movement) Gastrointestinal/Abdominal: Positive for: Soft. Negative for: Tenderness Back: Positive for: Normal Inspection. Negative for: Decreased ROM Extremity: Positive for: Normal ROM, Pedal Edema, Swelling. Negative for: Deformity Lymphatic: Negative for: Adenopathy Neurologic/Psych: Positive for: Alert. Negative for: Motor/Sensory Deficits - Laboratory Results Result Diagrams: 04/13/17 20:20 04/13/17 20:20 - ECG ECG Rhythm: Positive for: Sinus Rhythm, Nonspecific Changes O2 Sat by Pulse Oximetry: 96 Pulse Ox Interpretation: Normal Disposition - Clinical Impression Clinical Impression: CHF exacerbation, Chronic kidney disease (CKD), Pleural effusion - Disposition Disposition Time: 21:00 Condition: FAIR - Pt Status Changed To: Hospital Disposition Of: Observation - POA Present On Arrival: None
[2017-04-13 20:41] LABS: ALB/GLOB RATIO 1.1 (1.0-2.1); ALKALINE PHOSPHATASE 86 U/L (38-126); ALT/SGPT 30 U/L (21-72); AST/SGOT 26 U/L (17-59); BILIRUBIN,TOTAL < 0.1 mg/dl (0.2-1.3); BLOOD UREA NITROGEN 46 mg/dl (9-20); CALCIUM 7.8 mg/dL (8.4-10.2); CARBON DIOXIDE 20 mmol/L (22-30); CHLORIDE 116 mmol/L (98-107); GFR AFRICAN-AMERICAN 36; GLUCOSE,RANDOM 172 mg/dL (75-110); MAGNESIUM 2.1 MG/DL (1.6-2.3); PHOSPHOROUS 5.5 mg/dl (2.5-4.5); POTASSIUM 3.7 MMOL/L (3.6-5.0); SODIUM 142 mmol/l (132-148); TOTAL PROTEIN 5.6 G/DL (6.3-8.2)
[2017-04-13 20:50] LABS: PARTIAL THROMBOPLASTIN TIME 31.8 Seconds (25.6-37.1)
[2017-04-13] MEDS ORDERED: Aspirin 325 mg EC Tablets PO STA (21:24)
[2017-04-13] MEDS ORDERED: Nitroglycerin 2% Ointment Foilpak UD TOP STA (21:24)
[2017-04-13] MEDS ORDERED: Nitroglycerin 2% Ointment Foilpak UD TOP ONE (21:45)
[2017-04-13] MEDS ORDERED: Aspirin 325 mg EC Tablets PO ONE (21:45)
--- NOTE | 2017-04-13 22:32 | CP.PCM.HP ---
History of Present Illness - History of Present Illness History of Present Illness: 66 yo , m, Homeless, PMhx/o HTN, DM, CHF, Bipolar disorder presents c/o B/L leg pain started 4 days ago, more intense left side associated with swelling that has been getting worse during the last day. Patient has been limping, walking with difficulty using his cane and reports he tripped yesterday and fell landing over his left shoulder. He also reports chronic SOB on exertion for the last year, been able to walk only 1 1/2 block. He denies head trauma, dizziness, headache, syncope, orthopnea, PND, fever, cough, chest pain, hemoptysis, dysuria, olyguria, diarrhea, recent travel or immobilization. He Reports has been living in [address] and he has been taking his medications but only one tablet from each bottle of medicine. PMD: CFH PMHx : sCHF (Echo: 07/2016, EF: 45-50% w/abnml relaxation Grade II), DM, HTN, CKD Stage III, Anemia, Lung Nodule Allergies: NKDA Meds: Atorvastatin 40 mg daily, Furosemide 40 mg daily, aldactone 25 mg daily, metorprolol tartrate 50 mg BID, Hydralazine 50 mg TID, Lisinopril 20 mg 2 tab daily, aspirin 81 mg po daily, CLonidine 0.2 mg BID, Glipizide 10 mg BID SHx: smoker, denies alcohol, denies illicit drugs; [facility] ED course VS: BP: 168/87 RR: 20 O2 sat 96 PE: Chest Left 2/3 lung diminished breath sound. right 2/3 lung rales, no rhonchi, no wheezing B/L pedal edema 2+. Right calf tenderness, homans sign. Left shoulder: TD to palpation over joint line. Limited ROM due to pain. Labs: 8.1>10.5/30.5< 215 Bun/Cr 46/2.2 Phosp: 5.5 ProBNP: 5010 Imaging: EKG: Normal sinus rhythm, prolonged QT CXR: left pleural effusion Left shoulder XR: no fracture seen Meds: s/p lasix 40 mg IV, aspirin 325mg, nitroglycerin 0.5 path Present on Admission - Present on Admission Any Indicators Present on Admission: No History of DVT/PE: No History of Uncontrolled Diabetes: No Urinary Catheter: No Review of Systems - Respiratory Respiratory: Dyspnea - Musculoskeletal Additional comments: leg pain, leg swelling Past Patient History - Infectious Disease Hx of Infectious Diseases: None - Tetanus Immunizations Tetanus Immunization: Unknown - Past Medical History & Family History Past Medical History?: Yes - Past Social History Smoking Status: Light Smoker < 10 Cigarettes Daily - CARDIAC Hx Congestive Heart Failure: Yes Hx Hypercholesterolemia: No Hx Hypertension: Yes Hx Peripheral Edema: Yes - PULMONARY Hx Chronic Obstructive Pulmonary Disease (COPD): No Hx Pneumonia: Yes - NEUROLOGICAL HX Cerebrovascular Accident: No - HEENT Hx HEENT Problems: No - RENAL Hx Chronic Kidney Disease: No - ENDOCRINE/METABOLIC Hx Hypothyroidism: No - HEMATOLOGICAL/ONCOLOGICAL Hx Human Immunodeficiency Virus (HIV): No - INTEGUMENTARY Hx Dermatological Problems: Yes - MUSCULOSKELETAL/RHEUMATOLOGICAL Hx Arthritis: No Hx Rheumatoid Arthritis: No - GASTROINTESTINAL Hx Gastrointestinal Disorders: No - GENITOURINARY/GYNECOLOGICAL Hx Genitourinary Disorders: No - PSYCHIATRIC Hx Anxiety: Yes Hx Bipolar Disorder: Yes Hx Depression: Yes - SURGICAL HISTORY Hx Surgeries: No - ANESTHESIA Hx Anesthesia: Yes Hx Anesthesia Reactions: No Hx Malignant Hyperthermia: No Meds Allergies/Adverse Reactions: Allergies Allergy/AdvReac Type Severity Reaction Status Date / Time No Known Allergies Allergy Verified 12/15/16 18:07 Physical Exam - Constitutional Appears: No Acute Distress - Head Exam Head Exam: ATRAUMATIC, NORMOCEPHALIC - Eye Exam Eye Exam: Normal appearance - ENT Exam ENT Exam: Mucous Membranes Moist - Neck Exam Neck exam: Positive for: Normal Inspection - Respiratory Exam Respiratory Exam: Decreased Breath Sounds (Left 2/3 lung diminished breath sound. right 2/3 lung rales,). absent: Rhonchi, Wheezes - Cardiovascular Exam Cardiovascular Exam: REGULAR RHYTHM, +S1, +S2 - GI/Abdominal Exam GI & Abdominal Exam: Normal Bowel Sounds, Soft. absent: Tenderness - Extremities Exam Extremities exam: Positive for: calf tenderness (right calf tenderness. homans sign positive), pedal edema (B/L 2/3 legs 2+ pedal edema ) - Neurological Exam Neurological exam: Alert, Oriented x3 - Skin Skin Exam: Intact Results - Vital Signs Recent Vital Signs: Last Vital Signs Temp 98.8 F 04/13/17 19:46 Pulse 79 04/13/17 19:46 Resp 20 04/13/17 19:46 BP 168/87 H 04/13/17 22:02 Pulse Ox 96 04/13/17 20:35 - Labs Result Diagrams: 04/13/17 20:20 04/13/17 20:20 Labs: Laboratory Results - last 24 hr 04/13/17 04/13/17 04/13/17 20:20 20:20 20:20 WBC 8.1 RBC 3.18 L Hgb 10.5 L Hct 30.5 L MCV 96.0 H MCH 33.0 H MCHC 34.4 RDW 15.6 H Plt Count 215 MPV 10.0 Neut % (Auto) 65.1 Lymph % (Auto) 25.0 [place] % (Auto) 6.4 Eos % (Auto) 2.4 Baso % (Auto) 1.1 Neut # 5.3 Lymph # 2.0 [place] # 0.5 Eos # 0.2 Baso # 0.1 PT 10.4 INR 0.9 APTT 31.8 Sodium 142 Potassium 3.7 Chloride 116 H Carbon Dioxide 20 L Anion Gap 10 BUN 46 H Creatinine 2.2 H Est GFR ( Amer) 36 Est GFR (Non-Af Amer) 30 Random Glucose 172 H Calcium 7.8 L Phosphorus 5.5 H Magnesium 2.1 Total Bilirubin < 0.1 L AST 26 ALT 30 Alkaline Phosphatase 86 Troponin I 0.0180 NT-Pro-B Natriuret Pep 5010 H Total Protein 5.6 L Albumin 2.9 L D Globulin 2.7 Albumin/Globulin Ratio 1.1 Assessment & Plan - Assessment and Plan (Free Text) Plan: 66 yo , m, Homeless, PMhx/o HTN, DM, CHF, Bipolar disorder admitted for CHF exacerbation Assessment/Plan 1) Acute on chronic systolic CHF sCHF (Echo: 07/2016, EF: 45-50% w/abnml relaxation Grade II -probnp 5010 -Daily weights -restrict fluids to 800 ml/day - I&Os -Lasix 40 mg IV BID -Metoprolol hold due to acute exacerbation -c/w hydralazine -f/u cbc, cmp, ph, mg 2) Left shoulder pain secondary to fall over left shoulder -XR left shoulder: did not showed fracture -Tylenol 650 mg PO PRN pain 3) B/L leg pain possible secondary to pedal edema in CHF patient -Hx/o fall yesterday. Kaylyn sign right leg. Calf TD to palpation -to r/o DVT legs -Us Doppler venous b/l leg 4) CKD stage 3 A GFR: 46 , Cr 2.2 -Consider Nephro consult 5) Anemia secondary to CKD hgb: 10.5 6) HTN -Hydralazine -Metoprolol hold due to acute exacerbation - c/w Clonidine if BP uncontrolled 7) DM -c/w glipizide 8) DVT Prophylaxis -Heparin 5000 SC Q8h
[2017-04-14 05:33] LABS: BASO # 0.1 K/uL (0.0-0.2); BASO % 1.3 % (0.0-2.0); EOS # 0.2 K/uL (0.0-0.7); EOS % 2.7 % (0.0-4.0); HEMATOCRIT 25.8 % (35.0-51.0); LYMPH # 2.1 K/uL (1.0-4.3); LYMPH % 29.3 % (20.0-40.0); MEAN CELL VOLUME 95.9 fl (80.0-94.0); MEAN CORPUSCULAR HEMOGLOBIN 31.8 pg (27.0-31.0); MEAN CORPUSCULAR HGB CONC 33.2 g/dL (33.0-37.0); MEAN PLATELET VOLUME 9.7 fl (7.2-11.7); MONO # 0.4 K/uL (0.0-0.8); NEUT # 4.2 K/uL (1.8-7.0); NEUT % 60.7 % (50.0-75.0); NRBC % 0.1 % (0.0-0.0); RED CELL DISTRIBUTION WIDTH 15.3 % (11.5-14.5)
[2017-04-14] MEDS ORDERED: Pneumococcal 23-Valent Vaccine IM ONE ×2 (06:50→09:00)
[2017-04-14] MEDS ORDERED: Influenza Vaccine 18yr & older 0.5 ML/45 MCG SYR IM ONE (07:07)
--- NOTE | 2017-04-14 08:08 | RAD ---
PROCEDURE: Radiographs of the Left Shoulder HISTORY: Shoulder pain s/p fall COMPARISON: No prior. FINDINGS: BONES: No acute fracture dislocation is identified. degenerative changes in the glenohumeral and acromioclavicular joints with an old chip or avulsion fracture seen cephalad to the lateral portion of the distal clavicle above the AC joint. JOINTS: Degenerative changes as discussed above. SOFT TISSUES: Normal. OTHER FINDINGS: None. IMPRESSION: No acute fracture dislocation. Degenerative changes appear moderate at the acromioclavicular and glenohumeral joints without subluxation or dislocation.
--- NOTE | 2017-04-14 08:30 | CARD ---
APPROVED REPORT EKG Measurement Heart [id number] NE 180P-4 [id number] <Conclusion> Normal sinus rhythm Prolonged QT Abnormal ECG
--- NOTE | 2017-04-14 08:47 | RAD ---
HISTORY: leg edema COMPARISON: Chest radiographs 04/01/2017. FINDINGS: LUNGS: Borderline medial basilar patchy airspace disease. Underlying patchy airspace disease not excluded related to left basilar pleural effusion. PLEURA: Mild increased left basilar pleural effusion now appears moderate overall. No pneumothorax bilaterally. No right pleural effusion. . CARDIOVASCULAR: Normal. OSSEOUS STRUCTURES: No significant abnormalities. VISUALIZED UPPER ABDOMEN: Normal. OTHER FINDINGS: None. IMPRESSION: Mild increase in left basilar pleural effusion now moderate in overall volume. Underlying left basilar airspace disease not excluded. Borderline right basilar airspace changes. No right pleural effusion or pneumothorax bilaterally.
--- NOTE | 2017-04-14 10:15 | CP.PCM.PN ---
Subjective - Date & Time of Evaluation Date of Evaluation: 04/14/17 Time of Evaluation: 10:12 - Subjective Subjective: HD 2 S: Pt admitted yesterday for CHF exacerbation. No acute overnight events. Pt seen and examined this AM by bedside. Pt states that he feels a lot better this morning. His leg swelling has improved, as well as the pain in his L shoulder. Denies chest pain, palpitations, n/v/d/c and remains afebrile. BP remains elevated, asymptomatic. Objective - Vital Signs/Intake and Output Vital Signs (last 24 hours): Temp Pulse Resp BP Pulse Ox 97.6 F 79 18 200/89 H 99 04/14/17 01:57 04/14/17 09:11 04/14/17 01:57 04/14/17 09:12 04/14/17 01:57 - Medications Medications: Current Medications Acetaminophen (Tylenol 325mg Tab) 650 mg PO Q6H PRN PRN Reason: Pain, moderate (4-7) Amlodipine Besylate (Norvasc) 10 mg PO DAILY [facility] Last Admin: 04/14/17 09:11 Dose: 10 mg Aspirin (Ecotrin) 81 mg PO DAILY [facility] Last Admin: 04/14/17 09:11 Dose: 81 mg Atorvastatin Calcium (Lipitor) 40 mg PO DAILY [facility] Last Admin: 04/14/17 09:11 Dose: 40 mg Clonidine HCl (Catapres) 0.2 mg PO BID [facility] Furosemide (Lasix) 40 mg IV BID [facility] Last Admin: 04/14/17 09:12 Dose: 40 mg Glipizide (Glucotrol) 10 mg PO BID [facility] Last Admin: 04/14/17 09:11 Dose: 10 mg Heparin Sodium (Porcine) (Heparin) 5,000 units SC Q8 [facility] PRN Reason: Protocol Last Admin: 04/14/17 09:23 Dose: Not Given Hydralazine HCl (Apresoline) 25 mg PO TID [facility] Last Admin: 04/14/17 09:11 Dose: 25 mg Lisinopril (Zestril) 40 mg PO DAILY [facility] Last Admin: 04/14/17 09:11 Dose: 40 mg Nicotine (Nicoderm Cq) 1 patch TD DAILY [facility] Last Admin: 04/14/17 09:10 Dose: 1 patch Pentoxifylline (Pentoxil) 400 mg PO TID [facility] Last Admin: 04/14/17 09:10 Dose: 400 mg Spironolactone (Aldactone) 25 mg PO DAILY [facility] Last Admin: 04/14/17 09:10 Dose: 25 mg - Labs Labs: 04/14/17 04:20 04/13/17 20:20 PT 10.4 Seconds (9.8-13.1) 04/13/17 20:20 INR 0.9 (0.9-1.2) 04/13/17 20:20 APTT 31.8 Seconds (25.6-37.1) 04/13/17 20:20 - Constitutional Appears: Well, No Acute Distress, Older Than Stated Age, Other (Breathing comfortably in RA) - Head Exam Head Exam: ATRAUMATIC, NORMAL INSPECTION, NORMOCEPHALIC - Eye Exam Eye Exam: EOMI, Normal appearance, PERRL Pupil Exam: NORMAL ACCOMODATION, PERRL - ENT Exam ENT Exam: Mucous Membranes Moist, Normal Exam - Neck Exam Neck Exam: Full ROM, Normal Inspection. absent: Lymphadenopathy - Respiratory Exam Respiratory Exam: Wheezes (expiratory wheezing b/l in the lower lobes ), NORMAL BREATHING PATTERN. absent: Accessory Muscle Use, Chest Wall Tenderness - Cardiovascular Exam Cardiovascular Exam: REGULAR RHYTHM, +S1, +S2. absent: Bradycardia, Tachycardia , Murmur - GI/Abdominal Exam GI & Abdominal Exam: Soft, Normal Bowel Sounds. absent: Distended, Tenderness, Mass - Rectal Exam Rectal Exam: NORMAL INSPECTION - Extremities Exam Extremities Exam: Full ROM, Normal Capillary Refill, Normal Inspection, Pedal Edema (1+ pitting edema up to the knees b/l. L>R). absent: Joint Swelling - Back Exam Back Exam: NORMAL INSPECTION - Neurological Exam Neurological Exam: Alert, Awake, CN II-XII Intact, Oriented x3 - Psychiatric Exam Psychiatric exam: Normal Affect, Normal Mood - Skin Skin Exam: Dry, Intact, Normal Color, Warm Assessment and Plan - Assessment and Plan (Free Text) Assessment: Assessment/ Plan: 66 YO Male with PMH of CHF, HTN, CKD, DM and bipolar disorder is admitted for CHF exacerbation. Significant improvement this AM. 1) Acute on chronic systolic CHF -sCHF (Echo: 07/2016, EF: 45-50% w/abnml relaxation Grade II) -probnp 5010, will repeat in AM. -Daily weights -restrict fluids to 800 ml/day - I&Os -Lasix 40 mg IV BID -start Spironolactone daily -c/w hydralazine -no leukocytosis, afebrile, ph 5.3, mg 2.1 -trops neg x 2 2) B/L leg pain, improving - likely 2/2 pedal edema in CHF patient, sig improvement today -Kaylyn sign right leg. Calf TD to palpation (04/13)- neg findings today on physical exam -r/o DVT legs; follow up Us Doppler venous b/l leg neg per tech note, will follow up official findings 3) HTN, uncontrolled -BP today 200/89 -continue with Hydralazine -start amlodapine, clonidine 4) Left shoulder pain, improving -2/2 to fall on left shoulder -XR left shoulder: no fracture -Tylenol 650 mg PO PRN pain 5) CKD stage 3 B -GFR: 38 , Cr 2.1 6) Anemia -secondary to CKD -down from 10.5/30.5 yesterday, likely 2/2 to hemodilution. -Stable with hb/hct 8.6/25.8 today, pt asymptomatic 7) DM -c/w glipizide -start low corrective dose insulin 8) DVT Prophylaxis -Heparin 5000 SC Q8h
[2017-04-14 10:25] LABS: ALB/GLOB RATIO 0.9 (1.0-2.1); ALKALINE PHOSPHATASE 69 U/L (38-126); ALT/SGPT 24 U/L (21-72); AST/SGOT 18 U/L (17-59); BILIRUBIN,TOTAL < 0.1 mg/dl (0.2-1.3); BLOOD UREA NITROGEN 47 mg/dl (9-20); CALCIUM 7.9 mg/dL (8.4-10.2); CARBON DIOXIDE 19 mmol/L (22-30); CHLORIDE 118 mmol/L (98-107); GFR AFRICAN-AMERICAN 38; GLUCOSE,RANDOM 204 mg/dL (75-110); MAGNESIUM 2.1 MG/DL (1.6-2.3); PHOSPHOROUS 5.3 mg/dl (2.5-4.5); POTASSIUM 3.7 MMOL/L (3.6-5.0); SODIUM 142 mmol/l (132-148); TOTAL PROTEIN 4.6 G/DL (6.3-8.2)
[2017-04-14] MEDS ORDERED: Glucagon Recombinant 1 mg Inj IM PRN (13:16)
[2017-04-14] MEDS ORDERED: Dextrose 50% SYRINGE Inj (50 ml) IV PRN (13:16)
--- NOTE | 2017-04-14 14:53 | US ---
PROCEDURE: Bilateral lower extremity venous duplex Doppler. HISTORY: B/L leg pain s/p fall. COMPARISON: None available. TECHNIQUE: Bilateral common femoral, superficial femoral, popliteal and posterior tibial veins were evaluated. Flow was assessed with color Doppler, compressibility, assessment of phasic flow and augmentation response. FINDINGS: COMMON FEMORAL VEIN: Right CFV: Unremarkable. Left CFV: Unremarkable. SUPERFICIAL FEMORAL VEIN: Right SFV: Unremarkable. Left SFV: Unremarkable. POPLITEAL VEIN: Right Popliteal: Unremarkable. Left Popliteal: Unremarkable. POSTERIOR TIBIAL VEIN: Right PTV: Unremarkable. Left PTV: Unremarkable. OTHER FINDINGS: Morphologically, unremarkable lymph nodes. The largest in the right inguinal region 1.1 x 2 cm Bilateral calf edema Right popliteal fossa cyst 1.1 x 5.6 x 2.4 cm Left popliteal fossa cyst 1.2 x 5 cm. IMPRESSION: No evidence of deep venous thrombosis. Incidental finding(s): Cysts. Bilateral popliteal fossa
[2017-04-14] MEDS: Insulin Regular 100 units/ml SC SCH (17:38)
[2017-04-15] MEDS: Insulin Regular 100 units/ml SC SCH ×5 (00:18→23:01)
[2017-04-15 05:40] LABS: BASO # 0.1 K/uL (0.0-0.2); EOS # 0.1 K/uL (0.0-0.7); EOS % 2.3 % (0.0-4.0); HEMATOCRIT 26.8 % (35.0-51.0); LYMPH # 1.6 K/uL (1.0-4.3); LYMPH % 26.7 % (20.0-40.0); MEAN CELL VOLUME 95.8 fl (80.0-94.0); MEAN CORPUSCULAR HGB CONC 33.4 g/dL (33.0-37.0); MEAN PLATELET VOLUME 10.1 fl (7.2-11.7); MONO # 0.4 K/uL (0.0-0.8); MONO % 6.6 % (0.0-10.0); NEUT # 3.9 K/uL (1.8-7.0); NEUT % 63.4 % (50.0-75.0); RED CELL DISTRIBUTION WIDTH 15.3 % (11.5-14.5); WHITE BLOOD COUNT 6.1 K/uL (4.8-10.8)
[2017-04-15 08:44] LABS: IRON 58 ug/dL (49-181)
--- NOTE | 2017-04-15 08:44 | CP.PCM.PN ---
Subjective - Date & Time of Evaluation Date of Evaluation: 04/15/17 Time of Evaluation: 08:43 - Subjective Subjective: HD 2 66YO male admitted to hospital for CHF exacerbation. S: No acute overnight events. pt seen and examined by bedside this AM. He states that his shoulder pain has resolved at this time. He no longer has any LE pain. Denies chest pain, dyspnea, palpitations, n/v/d/c and remains afebrile. BP continues to be elevated. Unitask used [id number] Objective - Vital Signs/Intake and Output Vital Signs (last 24 hours): Temp Pulse Resp BP Pulse Ox 98.2 F 65 16 178/73 H 97 04/15/17 08:14 04/15/17 08:14 04/15/17 08:14 04/15/17 08:14 04/15/17 08:14 - Medications Medications: Current Medications Acetaminophen (Tylenol 325mg Tab) 650 mg PO Q6H PRN PRN Reason: Pain, moderate (4-7) Amlodipine Besylate (Norvasc) 10 mg PO DAILY [facility] Last Admin: 04/14/17 09:11 Dose: 10 mg Aspirin (Ecotrin) 81 mg PO DAILY [facility] Last Admin: 04/14/17 09:11 Dose: 81 mg Atorvastatin Calcium (Lipitor) 40 mg PO DAILY [facility] Last Admin: 04/14/17 09:11 Dose: 40 mg Clonidine HCl (Catapres) 0.2 mg PO BID [facility] Last Admin: 04/14/17 20:15 Dose: 0.2 mg Dextrose (Dextrose 50% Inj) 0 ml IV STAT PRN; Protocol PRN Reason: Hyglycemia Protocol Dextrose (Glutose 15) 0 gm PO ONCE PRN; Protocol PRN Reason: Hypoglycemia Protocol Furosemide (Lasix) 40 mg IV BID [facility] Last Admin: 04/14/17 17:37 Dose: 40 mg Glipizide (Glucotrol) 10 mg PO BID [facility] Last Admin: 04/14/17 17:36 Dose: 10 mg Glucagon (Glucagen Diagnostic Kit) 0 mg IM STAT PRN; Protocol PRN Reason: Hypoglycemia Protocol Heparin Sodium (Porcine) (Heparin) 5,000 units SC Q8 [facility] PRN Reason: Protocol Last Admin: 04/14/17 17:38 Dose: Not Given Hydralazine HCl (Apresoline) 50 mg PO TID [facility] Last Admin: 04/14/17 17:36 Dose: 50 mg Insulin Human Regular (Humulin R) 0 units SC ACHS [facility] PRN Reason: Protocol Last Admin: 04/15/17 00:18 Dose: Not Given Lisinopril (Zestril) 40 mg PO DAILY [facility] Last Admin: 04/14/17 09:11 Dose: 40 mg Nicotine (Nicoderm Cq) 1 patch TD DAILY [facility] Last Admin: 04/14/17 09:10 Dose: 1 patch Pentoxifylline (Pentoxil) 400 mg PO TID [facility] Last Admin: 04/14/17 17:37 Dose: 400 mg Spironolactone (Aldactone) 25 mg PO DAILY [facility] Last Admin: 04/14/17 09:10 Dose: 25 mg - Labs Labs: 04/15/17 04:20 04/14/17 10:35 PT 10.4 Seconds (9.8-13.1) 04/13/17 20:20 INR 0.9 (0.9-1.2) 04/13/17 20:20 APTT 31.8 Seconds (25.6-37.1) 04/13/17 20:20 - Constitutional Appears: Well, No Acute Distress - Head Exam Head Exam: ATRAUMATIC, NORMAL INSPECTION, NORMOCEPHALIC - Eye Exam Eye Exam: EOMI, Normal appearance, PERRL Pupil Exam: NORMAL ACCOMODATION, PERRL - ENT Exam ENT Exam: Mucous Membranes Moist, Normal Exam - Neck Exam Neck Exam: Full ROM, Normal Inspection. absent: Lymphadenopathy - Respiratory Exam Respiratory Exam: Clear to Ausculation Bilateral, NORMAL BREATHING PATTERN. absent: Wheezes - Cardiovascular Exam Cardiovascular Exam: REGULAR RHYTHM, +S1, +S2. absent: Murmur - GI/Abdominal Exam GI & Abdominal Exam: Soft, Normal Bowel Sounds. absent: Distended, Guarding, Tenderness - Rectal Exam Rectal Exam: NORMAL INSPECTION - Extremities Exam Extremities Exam: Full ROM, Normal Inspection, Pedal Edema (up to the mid rubio 1 + bilaterally ). absent: Joint Swelling, Tenderness Additional comments: No calf tenderness, no edema b/l this AM - Back Exam Back Exam: NORMAL INSPECTION. absent: CVA tenderness (L), CVA tenderness (R) - Neurological Exam Neurological Exam: Alert, Awake, CN II-XII Intact, Normal Gait, Oriented x3 - Psychiatric Exam Psychiatric exam: Normal Affect, Normal Mood - Skin Skin Exam: Dry, Intact, Normal Color, Warm Assessment and Plan - Assessment and Plan (Free Text) Assessment: 66 YO Male with PMH of CHF, HTN, CKD, DM and bipolar disorder is admitted for CHF exacerbation. Clinically improving but bp continues to be elevated. 1) Acute on chronic systolic CHF -sCHF (Echo: 07/2016, EF: 45-50% w/abnml relaxation Grade II) -probnp 5010, repeat this AM 3400. -Daily weights -restrict fluids to 800 ml/day - I&Os -Lasix 40 mg IV BID and Spironolactone daily -increase hydralazine 50mg TID -no leukocytosis, afebrile -trops neg x 3 2) B/L leg pain, resolved - likely 2/2 pedal edema in CHF patient -Kaylyn sign right leg. Calf TD to palpation (04/13)- neg findings on physical exam -Us Doppler venous b/l leg appreciated neg, with incidental finding of b/l popliteal fossa cyst 3) HTN, uncontrolled -BP today 196/76 -increase Hydralazine 50mg TID -continue amlodapine, clonidine 4) Left shoulder pain, improving -2/2 to fall on left shoulder -XR left shoulder: no fracture -Tylenol 650 mg PO PRN pain 5) CKD stage 3 B -GFR: 38 , Cr 2.1 6) Anemia -secondary to CKD -Stabilizing at 8.9/26.8 , pt asymptomatic 7) DM -c/w glipizide -continue low corrective dose insulin 8) DVT Prophylaxis -Heparin 5000 SC Q8h Dispo Pt to go home tomorrow with meds and follow up at [facility]
[2017-04-16 08:07] VITALS: RESP 18; O2SAT 97
[2017-04-16] MEDS: Insulin Regular 100 units/ml SC SCH ×2 (08:13→12:43)
--- NOTE | 2017-04-16 08:57 | CP.PCM.DIS ---
Provider - Provider Date of Admission: 04/14/17 15:36 Attending physician: Elizabeth Kelley MD Time Spent in preparation of Discharge (in minutes): 20 Hospital Course - Lab Results Lab Results: Micro Results 04/13/17 20:26 Blood-Venous Blood Culture - Preliminary NO GROWTH AFTER 48 HOURS 04/13/17 20:20 Blood-Venous Blood Culture - Preliminary NO GROWTH AFTER 48 HOURS Most Recent Lab Values WBC 6.1 K/uL (4.8-10.8) 04/15/17 04:20 RBC 2.79 Mil/uL (4.40-5.90) L 04/15/17 04:20 Hgb 8.9 g/dL (12.0-18.0) L 04/15/17 04:20 Hct 26.8 % (35.0-51.0) L 04/15/17 04:20 MCV 95.8 fl (80.0-94.0) H 04/15/17 04:20 MCH 32.0 pg (27.0-31.0) H 04/15/17 04:20 MCHC 33.4 g/dL (33.0-37.0) 04/15/17 04:20 RDW 15.3 % (11.5-14.5) H 04/15/17 04:20 Plt Count 175 K/uL (130-400) 04/15/17 04:20 MPV 10.1 fl (7.2-11.7) 04/15/17 04:20 Neut % (Auto) 63.4 % (50.0-75.0) 04/15/17 04:20 Lymph % (Auto) 26.7 % (20.0-40.0) 04/15/17 04:20 [place] % (Auto) 6.6 % (0.0-10.0) 04/15/17 04:20 Eos % (Auto) 2.3 % (0.0-4.0) 04/15/17 04:20 Baso % (Auto) 1.0 % (0.0-2.0) 04/15/17 04:20 Neut # 3.9 K/uL (1.8-7.0) 04/15/17 04:20 Lymph # 1.6 K/uL (1.0-4.3) 04/15/17 04:20 [place] # 0.4 K/uL (0.0-0.8) 04/15/17 04:20 Eos # 0.1 K/uL (0.0-0.7) 04/15/17 04:20 Baso # 0.1 K/uL (0.0-0.2) 04/15/17 04:20 PT 10.4 Seconds (9.8-13.1) 04/13/17 20:20 INR 0.9 (0.9-1.2) 04/13/17 20:20 APTT 31.8 Seconds (25.6-37.1) 04/13/17 20:20 Sodium 142 mmol/l (132-148) 04/14/17 10:35 Potassium 3.7 MMOL/L (3.6-5.0) 04/14/17 10:35 Chloride 118 mmol/L (98-107) H 04/14/17 10:35 Carbon Dioxide 19 mmol/L (22-30) L 04/14/17 10:35 Anion Gap 9 (10-20) L 04/14/17 10:35 BUN 47 mg/dl (9-20) H 04/14/17 10:35 Creatinine 2.1 mg/dL (0.8-1.5) H 04/14/17 10:35 Est GFR ( Amer) 38 04/14/17 10:35 Est GFR (Non-Af Amer) 32 04/14/17 10:35 POC Glucose (mg/dL) 202 mg/dL (65-110) H 04/15/17 22:40 Random Glucose 204 mg/dL (75-110) H 04/14/17 10:35 Calcium 7.9 mg/dL (8.4-10.2) L 04/14/17 10:35 Phosphorus 5.3 mg/dl (2.5-4.5) H 04/14/17 10:35 Magnesium 2.1 MG/DL (1.6-2.3) 04/14/17 10:35 Iron 58 ug/dL (49-181) 04/15/17 08:14 TIBC 230 ug/dL (250-450) L 04/15/17 08:14 % Saturation 25 % (20-55) 04/15/17 08:14 Total Bilirubin < 0.1 mg/dl (0.2-1.3) L 04/14/17 10:35 AST 18 U/L (17-59) 04/14/17 10:35 ALT 24 U/L (21-72) 04/14/17 10:35 Alkaline Phosphatase 69 U/L (38-126) 04/14/17 10:35 Troponin I 0.0180 ng/mL (0.00-0.120) 04/14/17 11:50 NT-Pro-B Natriuret Pep 3400 pg/ml (0-900) H 04/15/17 04:20 Total Protein 4.6 G/DL (6.3-8.2) L 04/14/17 10:35 Albumin 2.2 g/dL (3.5-5.0) L D 04/14/17 10:35 Globulin 2.4 gm/dL (2.2-3.9) 04/14/17 10:35 Albumin/Globulin Ratio 0.9 (1.0-2.1) L 04/14/17 10:35 - Hospital Course Hospital Course: 66 YO Male with PMH of CHF, HTN, CKD, DM and bipolar disorder is admitted for CHF exacerbation. During this admission, pts bp was uncontrolled. Changes were made to his medications metoprolol was d/c, hydralazine was changed to 50mg TID , and pt was started on Troprol XL. Pt feels well this AM, remains afebrile and breathing comfortably in room air. Pt agrees with plan to be d/c home with follow up in [facility]. of note pt is cymraes speaking, [employer] used [id number]. Discharge Exam - Head Exam Head Exam: ATRAUMATIC, NORMAL INSPECTION, NORMOCEPHALIC - Eye Exam Eye Exam: EOMI, Normal appearance, PERRL - ENT Exam ENT Exam: Mucous Membranes Moist - Neck Exam Neck exam: Full Rom - Respiratory Exam Respiratory Exam: NORMAL BREATHING PATTERN. absent: Chest Wall Tenderness, Wheezes - Cardiovascular Exam Cardiovascular Exam: REGULAR RHYTHM, +S1, +S2 - GI/Abdominal Exam GI & Abdominal Exam: Normal Bowel Sounds, Soft. absent: Guarding, Tenderness - Back Exam Back exam: absent: CVA tenderness (L), CVA tenderness (R) - Neurological Exam Neurological exam: Alert, CN II-XII Intact, Oriented x3 - Psychiatric Exam Psychiatric exam: Normal Affect, Normal Mood - Skin Skin Exam: Dry, Intact, Normal Color, Warm Discharge Plan - Discharge Medications Prescriptions: amLODIPine [Norvasc] 10 mg PO DAILY #30 tab Aspirin [Ecotrin] 81 mg PO DAILY #30 tabec Atorvastatin [Lipitor] 40 mg PO DAILY #30 tab cloNIDine [Catapres] 1 tab PO BID 30 Days tab Furosemide [Lasix] 40 mg PO DAILY #30 tab GlipiZIDE [Glucotrol] 10 mg PO BID #60 tab hydrALAZINE [Apresoline] 50 mg PO TID #90 tab Lisinopril [Zestril] 40 mg PO DAILY #30 tab Metoprolol Succinate [Toprol XL] 50 mg PO DAILY #30 tab Pentoxifylline [Pentoxil] 400 mg PO TID #90 ter Spironolactone [Aldactone] 25 mg PO DAILY #30 tab - Follow Up Plan Condition: FAIR Disposition: HOME/ ROUTINE Patient education suggested?: Yes Instructions: Heart Failure (DC) Additional Instructions: Pt has a follow up apt with Dr. Melo Apr at 10AM Stop taking Metoprolol 50mg daily, start taking Toprol Xl 50mg daily Stop taking Hydralazine 25mg TID, Start taking Hydralazine 50mg TID Referrals: Nathalia Melo MD [Resident] -
[2017-04-16 10:41] LABS: CALCIUM 8.3 mg/dL (8.4-10.2); MAGNESIUM 1.8 MG/DL (1.6-2.3); PHOSPHOROUS 4.8 mg/dl (2.5-4.5)
[2017-04-16 12:05] VITALS: BP 162/69; PULSE 67; TEMP 98.2
== END 2017-04-16 14:03 | disposition home or self-care (01) | DRG 544 ==
LOC: H.ER 19:42 → H.ERHOLD 21:22 → H.TEL 04-14 00:29 → OBSVTOIN 04-14 15:36
PROVIDERS: ADMIT Family Medicine Geriatric Medicine; ATTEND Family Medicine Geriatric Medicine
PROC: 3E0234Z Introduction of Serum, Toxoid and Vaccine into Muscle, Percutaneous Approach (ICD-10-PCS; principal; 2017-04-14)
DX: I13.0 Hypertensive heart and chronic kidney disease with heart failure and stage 1 through stage 4 chronic kidney disease, or unspecified chronic kidney disease (principal); I50.23 Acute on chronic systolic (congestive) heart failure; E11.22 Type 2 diabetes mellitus with diabetic chronic kidney disease; N18.3 Chronic kidney disease, stage 3 (moderate); D63.1 Anemia in chronic kidney disease; M25.512 Pain in left shoulder; F31.9 Bipolar disorder, unspecified; F17.210 Nicotine dependence, cigarettes, uncomplicated; Z23 Encounter for immunization; Z59.0 Homelessness; Z91.81 History of falling; Z79.82 Long term (current) use of aspirin; Z87.01 Personal history of pneumonia (recurrent)

== ENCOUNTER 2017-05-07 15:53 | Inpatient (IN) | payer SELFPAY ==
[2017-05-07 17:52] VITALS: BMI 21.9
[2017-05-07] MEDS ORDERED: Bismuth Subsalicylate 262 mg/15 ml Sus (240 ml) PO PRN (18:08)
[2017-05-07] MEDS ORDERED: Magnesium Hydroxide Susp 30 ml UD PO PRN (18:08)
[2017-05-07] MEDS ORDERED: Alum-Mag Hydrox-Simethicone Susp (30 mL) PO PRN (18:08)
[2017-05-07] MEDS ORDERED: Glucagon Recombinant 1 mg Inj IM PRN (18:59)
[2017-05-07] MEDS ORDERED: Dextrose 50% SYRINGE Inj (50 ml) IV PRN (18:59)
--- NOTE | 2017-05-07 19:14 | PCM.BM ---
<GumaroVaishnavi E - Last Filed: 05/07/17 19:12> Treatment Plan Problems - Problems identified on initial assessmt Hopelessness/Helplessness Date Initiated: 05/07/17 Time Initiated: 19:13 Assessment reference: HP NA Status: Active Treatment assets and liabiliti Patient Assests: negotiates basic needs Patient Liabilities: live alone, financial problems, poor support system, dietary restrictions, medical problems, imparied memory, language/speech - Milieu Protocol Maintain good personal hygiene: daily Encourage regular showers, daily Remind patient to perform daily oral care, daily Assist patient to perform ADL's Maintain personal safety: every shift Educate patient to report safety concerns to staff, every shift Monitor environment for contraband/sharps Medication safety: Monitor for expected outcome, potential side effects: every shift, Assess barriers to learning: every shift, Assess readiness for medication education: every shift <Karishma Iglesias - Last Filed: 05/08/17 15:47> Family Contact - Goals for Treatment Patient goals for treatment: Pt to be encouraged to attend activity and clinical groups 3-5x per week to identify at least 2 contributing factors to depression and suicide attempt. Psycho-education to be provided to patient/ family regarding benefits of medications and treatment adherence. Pt to be encouraged to participate in group milieu to develop effective coping skills to reduce depression and free of suicide ideation. Coordinate discharge resource needs by providing referral for psychiatric treatment follow up in the community. Discharge/Continuing Care - Education Needs Education Needs: Patient Medication, Patient Diagnosis/Disease Process, Patient Coping Skills, Patient Placement options, Patient Community resources, Patient Activities of Daily Living, Patient Nutrition, Patient Uses of Medical Equipment , Patient Health Practices/Safety, Patient Personal Hygiene/Grooming, Patient Aftercare Safety Plan - Discharge Discharge Criteria: Tolerates medication w/o severe side effects, Free of Suicidal thoughts, Free of agitation, Normal sleep pattern, Ability to care for self, Reduction of target symptoms Discharge to:: Halfway - Treatment Team Participation Discussed with Family/SO: No (No family involvement) <Zenia Bird - Last Filed: 05/09/17 08:15> - Diagnosis (1) Major depressive disorder with psychotic features Status: Acute Interventions: Medication management, Individual and group therapy, Psychoeducation 05/09/17 08:15 <Rahul Osorio - Last Filed: 05/09/17 13:17> Family Contact Family involvement: Harmeety/SO not involved Family contact: Patient declines to allow family contact at present Family contact name: Pt reported poor social support - Goals for Treatment Patient goals for treatment: Pt reported that he would like to reduce his depressive symptoms. Pt complained of chronic homelessness. Discharge/Continuing Care - Education Needs Education Needs: Patient Medication, Patient Diagnosis/Disease Process, Patient Coping Skills, Patient Community resources, Patient Aftercare Safety Plan - Discharge Discharge Criteria: Free of Suicidal thoughts, Normal sleep pattern, Ability to care for self, Reduction of target symptoms Discharge to:: Halfway - Additional Comments 05/09/17 13:16 Pt did not offer any complaints at this time and did not have any questions for team. Pt is awaiting results from medical team. - Treatment Team Participation Was Patient/Family/SO present at Treatment Team Meeting: Yes
[2017-05-07] MEDS: Insulin Regular 100 units/ml SC SCH (21:16)
[2017-05-08 06:57] LABS: HEMATOCRIT 27.6 % (35.0-51.0); MEAN CELL VOLUME 95.3 fl (80.0-94.0); MEAN CORPUSCULAR HEMOGLOBIN 31.8 pg (27.0-31.0); MEAN CORPUSCULAR HGB CONC 33.4 g/dL (33.0-37.0); RED CELL DISTRIBUTION WIDTH 14.6 % (11.5-14.5); WHITE BLOOD COUNT 7.3 K/uL (4.8-10.8)
[2017-05-08 07:49] LABS: ALKALINE PHOSPHATASE 92 U/L (38-126); ALT/SGPT 43 U/L (21-72); AST/SGOT 18 U/L (17-59); BILIRUBIN,TOTAL < 0.1 mg/dl (0.2-1.3); BLOOD UREA NITROGEN 97 mg/dl (9-20); CALCIUM 8.2 mg/dL (8.4-10.2); CARBON DIOXIDE 18 mmol/L (22-30); CHLORIDE 118 mmol/L (98-107); CHOLESTEROL 108 mg/dL (0-199); GFR AFRICAN-AMERICAN 29; GLUCOSE,RANDOM 119 mg/dL (75-110); SODIUM 144 mmol/l (132-148); TOTAL PROTEIN 5.3 G/DL (6.3-8.2)
[2017-05-08 07:56] LABS: T4 6.67 ug/dl (5.5-11.0)
[2017-05-08 08:09] LABS: THYROID STIMULATING HORMONE 3.55 mIU/ML (0.46-4.68)
[2017-05-08 08:10] LABS: POTASSIUM 5.9 MMOL/L (3.6-5.0)
[2017-05-08] MEDS: Lidocaine 5% Patch TD SCH (08:30)
[2017-05-08] MEDS: Insulin Regular 100 units/ml SC SCH ×4 (08:38→21:23)
[2017-05-08] MEDS: Sevelamer Carb 0.8 gm/Packet PO SCH ×2 (08:39→17:27)
[2017-05-08] MEDS: Metoprolol Succinate 50 mg XL Tab PO SCH (08:40)
--- NOTE | 2017-05-08 09:23 | CP.PCM.CON ---
History of Present Illness - History of Present Illness History of Present Illness: Patient who is 66 years of age transferred from the floor to psych unit because of the bipolar disorder follow-up. I was called to see him for abnormal kidney function. Patient is known was chronic kidney disease stage III to 4. With history of hypertension and diabetes mellitus. And pleural effusion including bilateral pleural effusion and the last CT scan of the chest. Patient also suspicious to have multiple myeloma he just had bone marrow few days ago and waiting for the final report . Again past medical history hypertension and chronic kidney disease stage IV. Diabetes mellitus in addition to the above medical issues. Review of Systems - Constitutional Constitutional: As Per HPI. absent: Chills - EENT Nose/Mouth/Throat: As Per HPI - Cardiovascular Cardiovascular: Dyspnea on Exertion, Edema. absent: Acrocyanosis, Chest Pain - Genitourinary Genitourinary: Nocturia - Musculoskeletal Musculoskeletal: Abnormal Gait, Muscle Weakness - Neurological Neurological: As Per HPI Past Patient History - Infectious Disease Hx of Infectious Diseases: None - Tetanus Immunizations Tetanus Immunization: Unknown - Past Medical History & Family History Past Medical History?: Yes - Past Social History Smoking Status: Light Smoker < 10 Cigarettes Daily - CARDIAC Hx Congestive Heart Failure: Yes Hx Hypercholesterolemia: No Hx Hypertension: Yes Hx Peripheral Edema: Yes - PULMONARY Hx Chronic Obstructive Pulmonary Disease (COPD): No Hx Pneumonia: Yes - NEUROLOGICAL Hx Neurological Disorder: No Hx Dementia: Yes - HEENT Hx HEENT Problems: No - RENAL Hx Chronic Kidney Disease: Yes - ENDOCRINE/METABOLIC Hx Endocrine Disorders: Yes Hx Diabetes Mellitus Type 2: Yes Hx Hypothyroidism: No - HEMATOLOGICAL/ONCOLOGICAL Hx Blood Disorders: No Hx Anemia: Yes Hx Blood Transfusions: Yes - INTEGUMENTARY Hx Dermatological Problems: No - MUSCULOSKELETAL/RHEUMATOLOGICAL Hx Arthritis: No Hx Falls: Yes Hx Rheumatoid Arthritis: No Hx Unsteady Gait: Yes - GASTROINTESTINAL Hx Gastrointestinal Disorders: No - GENITOURINARY/GYNECOLOGICAL Hx Genitourinary Disorders: No - PSYCHIATRIC Hx Depression: Yes Hx Substance Use: No - SURGICAL HISTORY Hx Surgeries: No - ANESTHESIA Hx Anesthesia: Yes Hx Anesthesia Reactions: No Hx Malignant Hyperthermia: No Meds Allergies/Adverse Reactions: Allergies Allergy/AdvReac Type Severity Reaction Status Date / Time No Known Allergies Allergy Verified 04/23/17 19:06 - Medications Medications: Current Medications Acetaminophen (Tylenol 325mg Tab) 650 mg PO Q4 PRN PRN Reason: Pain, moderate (4-7) Al Hydrox/Mg Hydrox/Simethicone (Maalox Plus 30 Ml) 30 ml PO Q4 PRN PRN Reason: Dyspepsia Amlodipine Besylate (Norvasc) 10 mg PO DAILY [facility] Last Admin: 05/08/17 08:39 Dose: 10 mg Aspirin (Ecotrin) 81 mg PO DAILY [facility] Last Admin: 05/08/17 08:31 Dose: 81 mg Atorvastatin Calcium (Lipitor) 40 mg PO DAILY [facility] Last Admin: 05/08/17 08:38 Dose: 40 mg Bismuth Subsalicylate (Pepto-Bismol) 524 mg PO Q4 PRN PRN Reason: Diarrhea Clonidine HCl (Catapres) 0.2 mg PO BID [facility] Last Admin: 05/08/17 08:36 Dose: 0.2 mg Dextrose (Dextrose 50% Inj) 0 ml IV STAT PRN; Protocol PRN Reason: Hypoglycemia Protocol Dextrose (Glutose 15) 0 gm PO ONCE PRN; Protocol PRN Reason: Hypoglycemia Protocol Furosemide (Lasix) 40 mg PO DAILY [facility] Gabapentin (Neurontin) 100 mg PO BID [facility] Last Admin: 05/08/17 08:31 Dose: 100 mg Glipizide (Glucotrol) 15 mg PO ACB [facility] Last Admin: 05/08/17 08:37 Dose: 15 mg Glipizide (Glucotrol) 10 mg PO ACD [facility] Glucagon (Glucagen Diagnostic Kit) 0 mg IM STAT PRN; Protocol PRN Reason: Hypoglycemia Protocol Heparin Sodium (Porcine) (Heparin) 5,000 units SC Q12 [facility]OMAS PRN Reason: Protocol Last Admin: 05/08/17 08:37 Dose: Not Given Hydralazine HCl (Apresoline) 100 mg PO TID [facility] Last Admin: 05/08/17 08:34 Dose: 100 mg Insulin Human Regular (Humulin R) 0 units SC ACHS [facility]OMAS PRN Reason: Protocol Last Admin: 05/08/17 08:38 Dose: Not Given Lidocaine (Lidoderm) 1 ea TD DAILY [facility] Last Admin: 05/08/17 08:30 Dose: Not Given Lorazepam (Ativan) 0.5 mg PO HS PRN PRN Reason: Insomnia Stop: 05/21/17 18:09 Lorazepam (Ativan) 0.5 mg PO Q6 PRN PRN Reason: Anixety/Agitation Stop: 05/21/17 18:09 Magnesium Hydroxide (Milk Of Magnesia) 30 ml PO HS PRN PRN Reason: Constipation Metoprolol Succinate (Toprol Xl) 50 mg PO DAILY [facility] Last Admin: 05/08/17 08:40 Dose: 50 mg Mirtazapine (Remeron) 15 mg PO HS [facility] Last Admin: 05/07/17 21:16 Dose: 15 mg Pentoxifylline (Pentoxil) 400 mg PO DAILY [facility] Last Admin: 05/08/17 08:31 Dose: 400 mg Risperidone (Risperdal Tab) 0.5 mg PO HS [facility] Last Admin: 05/07/17 21:16 Dose: 0.5 mg Sevelamer Carbonate (Renvela) 0.8 gm PO BID [facility] Last Admin: 05/08/17 08:39 Dose: 0.8 gm Physical Exam - Constitutional Appears: No Acute Distress - ENT Exam ENT Exam: Mucous Membranes Moist - Respiratory Exam Respiratory Exam: Rhonchi, NORMAL BREATHING PATTERN - Cardiovascular Exam Cardiovascular Exam: absent: JVD, Rubs - GI/Abdominal Exam GI & Abdominal Exam: Normal Bowel Sounds - Extremities Exam Extremities exam: Negative for: calf tenderness - Back Exam Back exam: absent: CVA tenderness (L), CVA tenderness (R) - Neurological Exam Neurological exam: Altered Results - Vital Signs Recent Vital Signs: Last Vital Signs Temp 97.5 F L 05/08/17 05:34 Pulse 61 05/08/17 08:40 Resp 18 05/08/17 05:34 BP 134/60 05/08/17 08:40 Pulse Ox - Labs Result Diagrams: 05/08/17 06:00 05/08/17 06:00 Labs: Laboratory Results - last 24 hr 05/07/17 05/08/17 05/08/17 20:05 05:26 06:00 WBC 7.3 RBC 2.89 L Hgb 9.2 L Hct 27.6 L MCV 95.3 H MCH 31.8 H MCHC 33.4 RDW 14.6 H Plt Count 189 Sodium Potassium Chloride Carbon Dioxide Anion Gap BUN Creatinine Est GFR ( Amer) Est GFR (Non-Af Amer) POC Glucose (mg/dL) 204 H 147 H Random Glucose Calcium Phosphorus Ferritin Total Bilirubin AST ALT Alkaline Phosphatase Total Protein Albumin Globulin Albumin/Globulin Ratio Triglycerides Cholesterol LDL Cholesterol Direct HDL Cholesterol Vitamin B12 Free T4 Thyroxine (T4) TSH 3rd Generation 05/08/17 05/08/17 05/08/17 06:00 06:00 08:03 WBC RBC Hgb Hct MCV MCH MCHC RDW Plt Count Sodium 144 Potassium 5.9 H Chloride 118 H Carbon Dioxide 18 L Anion Gap 14 BUN 97 H Creatinine 2.7 H Est GFR ( Amer) 29 Est GFR (Non-Af Amer) 24 POC Glucose (mg/dL) Random Glucose 119 H Calcium 8.2 L Phosphorus 6.7 H Ferritin 99.7 Total Bilirubin < 0.1 L AST 18 ALT 43 Alkaline Phosphatase 92 Total Protein 5.3 L Albumin 2.6 L Globulin 2.7 Albumin/Globulin Ratio 1.0 Triglycerides 30 D Cholesterol 108 LDL Cholesterol Direct 38 HDL Cholesterol 52 Vitamin B12 317 Free T4 0.80 Thyroxine (T4) 6.67 TSH 3rd Generation 3.55 Assessment & Plan (1) Acute kidney injury superimposed on chronic kidney disease Assessment and Plan: Patient appeared to have acute kidney injury superimposed on chronic kidney disease stage IV Hyperkalemia noted today therefore give stat Kayexalate 30 g now. Patient has bilateral pleural effusion more so on the left side on the previous CT scan. Multiple myeloma to be ruled out. Status: Acute (2) Hyperkalemia Status: Acute
--- NOTE | 2017-05-08 09:46 | CP.PCM.CON ---
History of Present Illness - History of Present Illness History of Present Illness: Hx taken from patient and previous records PMD: NHC(Homeless) 66 y/o M recently admitted to [facility] for CHF exacerbation and found to have, pleural effusion, pulm nodules, acute on CKD and acute on chronic anemia. Evaluated by Nephro and Hem-onc, S/P Thoracocentesis(negative for malignancy or AFB), sputum neg for AFB, s/p 1 unit of PRBC transfusion and bone marrow biopsy to r/o hematologic malignancy, clinically improved and stable. He was admitted to Psych unit, last night because of depression and recently reported SI and VH. Today patient is in not acute distress, lying in bed. C/O feeling that "he is being watched and followed here all the time". Denies CP, cough, palpitations , SOB, he is tolerating decubitus, and diet. Denies dysuria or diarrhea. Denies SI, HI or VH today. PMHx : CHF (Echo: 07/2016, EF: 45-50% w/abnml relaxation Grade II), DM, HTN, CKD Stage III, Anemia, Lung Nodule Allergies: NKDA SHx: smoker, denies alcohol, denies illicit drugs; homeless Review of Systems - Review of Systems All systems: reviewed and no additional remarkable complaints except - Constitutional Constitutional: Other Additional comments: Chronically ill. - Musculoskeletal Additional comments: back pain occasionally. - Integumentary Additional comments: Traumatic bruise Past Patient History - Infectious Disease Hx of Infectious Diseases: None - Tetanus Immunizations Tetanus Immunization: Unknown - Past Medical History & Family History Past Medical History?: Yes - Past Social History Smoking Status: Light Smoker < 10 Cigarettes Daily - CARDIAC Hx Congestive Heart Failure: Yes Hx Hypercholesterolemia: No Hx Hypertension: Yes Hx Peripheral Edema: Yes - PULMONARY Hx Chronic Obstructive Pulmonary Disease (COPD): No Hx Pneumonia: Yes - NEUROLOGICAL Hx Neurological Disorder: No Hx Dementia: No - HEENT Hx HEENT Problems: No - RENAL Hx Chronic Kidney Disease: Yes - ENDOCRINE/METABOLIC Hx Endocrine Disorders: Yes Hx Diabetes Mellitus Type 2: Yes Hx Hypothyroidism: No - HEMATOLOGICAL/ONCOLOGICAL Hx Blood Disorders: No Hx Anemia: Yes Hx Blood Transfusions: Yes - INTEGUMENTARY Hx Dermatological Problems: No - MUSCULOSKELETAL/RHEUMATOLOGICAL Hx Arthritis: No Hx Falls: Yes Hx Rheumatoid Arthritis: No Hx Unsteady Gait: Yes - GASTROINTESTINAL Hx Gastrointestinal Disorders: No - GENITOURINARY/GYNECOLOGICAL Hx Genitourinary Disorders: No - PSYCHIATRIC Hx Depression: Yes Hx Hallucinations: Yes Hx Substance Use: No - SURGICAL HISTORY Hx Surgeries: No - ANESTHESIA Hx Anesthesia: Yes Hx Anesthesia Reactions: No Hx Malignant Hyperthermia: No Meds Allergies/Adverse Reactions: Allergies Allergy/AdvReac Type Severity Reaction Status Date / Time No Known Allergies Allergy Verified 04/23/17 19:06 - Medications Medications: Current Medications Acetaminophen (Tylenol 325mg Tab) 650 mg PO Q4 PRN PRN Reason: Pain, moderate (4-7) Al Hydrox/Mg Hydrox/Simethicone (Maalox Plus 30 Ml) 30 ml PO Q4 PRN PRN Reason: Dyspepsia Amlodipine Besylate (Norvasc) 10 mg PO DAILY [facility] Last Admin: 05/08/17 08:39 Dose: 10 mg Aspirin (Ecotrin) 81 mg PO DAILY [facility] Last Admin: 05/08/17 08:31 Dose: 81 mg Atorvastatin Calcium (Lipitor) 40 mg PO DAILY [facility] Last Admin: 05/08/17 08:38 Dose: 40 mg Bismuth Subsalicylate (Pepto-Bismol) 524 mg PO Q4 PRN PRN Reason: Diarrhea Clonidine HCl (Catapres) 0.2 mg PO BID [facility] Last Admin: 05/08/17 08:36 Dose: 0.2 mg Dextrose (Dextrose 50% Inj) 0 ml IV STAT PRN; Protocol PRN Reason: Hypoglycemia Protocol Dextrose (Glutose 15) 0 gm PO ONCE PRN; Protocol PRN Reason: Hypoglycemia Protocol Furosemide (Lasix) 40 mg PO DAILY [facility] Gabapentin (Neurontin) 100 mg PO BID [facility] Last Admin: 05/08/17 08:31 Dose: 100 mg Glipizide (Glucotrol) 15 mg PO ACB [facility] Last Admin: 05/08/17 08:37 Dose: 15 mg Glipizide (Glucotrol) 10 mg PO ACD [facility] Glucagon (Glucagen Diagnostic Kit) 0 mg IM STAT PRN; Protocol PRN Reason: Hypoglycemia Protocol Heparin Sodium (Porcine) (Heparin) 5,000 units SC Q12 [facility] PRN Reason: Protocol Last Admin: 05/08/17 08:37 Dose: Not Given Hydralazine HCl (Apresoline) 100 mg PO TID [facility] Last Admin: 05/08/17 08:34 Dose: 100 mg Insulin Human Regular (Humulin R) 0 units SC ACHS [facility] PRN Reason: Protocol Last Admin: 05/08/17 08:38 Dose: Not Given Lidocaine (Lidoderm) 1 ea TD DAILY [facility] Last Admin: 05/08/17 08:30 Dose: Not Given Lorazepam (Ativan) 0.5 mg PO HS PRN PRN Reason: Insomnia Stop: 05/21/17 18:09 Lorazepam (Ativan) 0.5 mg PO Q6 PRN PRN Reason: Anixety/Agitation Stop: 05/21/17 18:09 Magnesium Hydroxide (Milk Of Magnesia) 30 ml PO HS PRN PRN Reason: Constipation Metoprolol Succinate (Toprol Xl) 50 mg PO DAILY [facility] Last Admin: 05/08/17 08:40 Dose: 50 mg Mirtazapine (Remeron) 15 mg PO HS [facility] Last Admin: 05/07/17 21:16 Dose: 15 mg Pentoxifylline (Pentoxil) 400 mg PO DAILY [facility] Last Admin: 05/08/17 08:31 Dose: 400 mg Risperidone (Risperdal Tab) 0.5 mg PO HS [facility] Last Admin: 05/07/17 21:16 Dose: 0.5 mg Sevelamer Carbonate (Renvela) 0.8 gm PO BID [facility] Last Admin: 05/08/17 08:39 Dose: 0.8 gm Physical Exam - Constitutional Appears: Non-toxic, No Acute Distress - Eye Exam Eye Exam: EOMI, PERRL - Respiratory Exam Respiratory Exam: Decreased Breath Sounds (L/lung base), NORMAL BREATHING PATTERN. absent: Rales, Rhonchi, Wheezes Additional comments: Tolerates flat decubitus - Cardiovascular Exam Cardiovascular Exam: REGULAR RHYTHM, +S1, +S2. absent: Systolic Murmur - GI/Abdominal Exam GI & Abdominal Exam: Normal Bowel Sounds, Soft. absent: Tenderness - Extremities Exam Extremities exam: Positive for: normal capillary refill. Negative for: joint swelling, pedal edema, tenderness - Back Exam Back exam: absent: CVA tenderness (L), CVA tenderness (R) - Neurological Exam Neurological exam: Alert, Oriented x3 - Psychiatric Exam Psychiatric exam: Depressed - Skin Skin Exam: Warm Additional comments: Chronic stasis dermatitis changes in both LE. Results - Vital Signs Recent Vital Signs: Last Vital Signs Temp 97.5 F L 05/08/17 05:34 Pulse 61 05/08/17 08:40 Resp 18 05/08/17 05:34 BP 134/60 05/08/17 08:40 Pulse Ox - Labs Result Diagrams: 05/08/17 06:00 05/08/17 06:00 Labs: Laboratory Results - last 24 hr 05/07/17 05/08/17 05/08/17 20:05 05:26 06:00 WBC 7.3 RBC 2.89 L Hgb 9.2 L Hct 27.6 L MCV 95.3 H MCH 31.8 H MCHC 33.4 RDW 14.6 H Plt Count 189 Sodium Potassium Chloride Carbon Dioxide Anion Gap BUN Creatinine Est GFR ( Amer) Est GFR (Non-Af Amer) POC Glucose (mg/dL) 204 H 147 H Random Glucose Calcium Phosphorus Ferritin Total Bilirubin AST ALT Alkaline Phosphatase Total Protein Albumin Globulin Albumin/Globulin Ratio Triglycerides Cholesterol LDL Cholesterol Direct HDL Cholesterol Vitamin B12 Free T4 Thyroxine (T4) TSH 3rd Generation 05/08/17 05/08/17 05/08/17 06:00 06:00 08:03 WBC RBC Hgb Hct MCV MCH MCHC RDW Plt Count Sodium 144 Potassium 5.9 H Chloride 118 H Carbon Dioxide 18 L Anion Gap 14 BUN 97 H Creatinine 2.7 H Est GFR ( Amer) 29 Est GFR (Non-Af Amer) 24 POC Glucose (mg/dL) Random Glucose 119 H Calcium 8.2 L Phosphorus 6.7 H Ferritin 99.7 Total Bilirubin < 0.1 L AST 18 ALT 43 Alkaline Phosphatase 92 Total Protein 5.3 L Albumin 2.6 L Globulin 2.7 Albumin/Globulin Ratio 1.0 Triglycerides 30 D Cholesterol 108 LDL Cholesterol Direct 38 HDL Cholesterol 52 Vitamin B12 317 Free T4 0.80 Thyroxine (T4) 6.67 TSH 3rd Generation 3.55 Assessment & Plan - Assessment and Plan (Free Text) Assessment: 66 y/o M with PMH including Systolic CHF, HTN, CKD, NIDDM2 and bipolar disorder is admitted to psychiatric unit for Depression Depression, acute on chronic -Improved but still depressed -No SI or HI -Managed by Psych service Anemia, acute on chronic -Stable. Poss CKD VS malignancy -Hgb 9.2 -F/U EPO -Heme/Onc consult by Dr Iraheta appreciated -FOBT negative -F/U Bone marrow biopsy results(ruling out MM) Hyperkalemia -5.1---> 5.9 Today -No clear explanation at this point. -Kayexalate stat ordered -Avoid Magnesium based meds. Nurse made aware -ACEi and Aldactone previously DCed. -Will monitor Hypertension -Improved -Likely due to underlying CKD stage 3B -Nephro consult appreciated -Continue Toprol XL 50mg PO daily, amlodipine 10mg PO daily, clonidine 0.2mg PO bid -C/W Hydralazine 100mg Q8h, CKD stage 3B -Last bun/cr 89/2.7 -Nephro consulted. Recs appreciated -Continue Sevelamer BID -Patient will benefit from Epogen pending Hem-onc recs on bone marrow biopsy results Pulmonary nodules and questionable cavitary lesion on CT/CXR -ID, pulm and Heme/Onc consulted -Pulmonology consult appreciated: As per Dr Raymond patient pleural studies is neg for malignancy or AFB he can F/U as outpatient. -Will need treatment for latent TB as outpatient due to elevated Quantiferon test Chronic systolic CHF -Controlled -Last Echo EF 45-50% on 07/2016 -Lasix 40 mg daily Non insulin dependent Type II DM controlled -C/W Glipizide 15 mg breakfast and 10 mg dinner -ACHS -SSI DVT Prophylaxis -Heparin 5000u SC Q12h(Patient has been refusing haparin)
[2017-05-08] MEDS ORDERED: Sod Polystyrene Sulf 15 gm/60 ml Susp PO ONE (10:10)
[2017-05-08 11:53] LABS: RBC URINE 3 /hpf (0-3); URINE BILIRUBIN NEGATIVE (NEGATIVE); URINE BLOOD NEGATIVE (NEGATIVE); URINE COLOR STRAW (YELLOW); URINE GLUCOSE (UA) 50 mg/dL (Normal); URINE KETONE NEGATIVE (NEGATIVE); URINE LEUKOCYTE ESTERASE NEG Leu/uL (Negative); URINE PROTEIN 100 mg/dL (NEGATIVE); URINE UROBILINOGEN 0.2-1.0 mg/dL (0.2-1.0); WBC URINE 4 /hpf (0-5)
--- NOTE | 2017-05-08 15:59 | PCM.PSYCH ---
Initial Psychiatric Evaluation - Initial Psychiatric Evaluation Type of Admission: Voluntary Chief Complaint (in patient's own words): transfer from [facility] after being admitted pleural effusion-with bone biopsy was performed 0n 6s, thorocentesis was performed on 6s. Pt was consulted by psych because depression ideations without any plan. Pt. was signed in voluntary, pt. refused heparin x2 (dvt prophylaxis). PT. has been noted to be moving about unit ie. ambulation in unit. Pt. has been agreeable receive insulin as well as other medications. staff report pt is irritable at times when assisted with adls. Pt. is eating and sleeps well. Pt. is being followed by family practice. Patient's Reaction to Hospitalization: pt signed in voluntarily to [facility] History of Present Illness and Precipitating Events: was admitted to a general medical surgical unit for multiple co morbidities. pt admitted to suicidal ideations and was medically cleared for transfer to [facility]. Pt reported feeling depressed for a long time. Pt reported that prior to hospitalization he had thoughts and ideation of suicide, but did not have a plan. Pt reported I have nothing to live for. Pt reported several stressors contributing to his depression and SI. Pt reported becoming homeless after losing his job. Pt reported he was living in his [employer] work van but not in the past couple of months because hes constantly using the van for different jobs. Pt reported he has been staying in the streets. Pt reported suicide thoughts in the past [place] [address] [place]. Pt reported several psychostressors, such as lack of health insurance, financial struggle, housing issues (homeless), and lack of social and emotional support. Pt reported 3 prior psychiatric hospitalizations. Pt reported he was hospitalized in [place] in 1970 secondary to depression and in July and October 2015 at [facility] secondary to depression and SI. Pt reported being non- compliant with psychotropic since discharge in October 2015. Pt reported non- compliance with outpatient mental health services. Pt reported medical issues as HTN, anemia and diabetes. Pt reported 2 prior suicide attempts, once in [place] and once in 2015. Pt denied hx of aggressive and assaultive bxs. Pt denied hx of self-injurious bxs. Current Medications: Active Medications Generic Name Dose Route Start Last Admin Trade Name Freq PRN Reason Stop Dose Admin Acetaminophen 650 mg 05/07/17 18:08 Tylenol 325mg Tab PO Q4 PRN Pain, moderate (4-7) Al Hydrox/Mg Hydrox/Simethicone 30 ml 05/07/17 18:08 Maalox Plus 30 Ml PO Q4 PRN Dyspepsia Amlodipine Besylate 10 mg 05/08/17 09:00 05/08/17 08:39 Norvasc PO 10 mg DAILY [facility] Administration Aspirin 81 mg 05/08/17 09:00 05/08/17 08:31 Ecotrin PO 81 mg DAILY [facility] Administration Atorvastatin Calcium 40 mg 05/08/17 09:00 05/08/17 08:38 Lipitor PO 40 mg DAILY [facility] Administration Bismuth Subsalicylate 524 mg 05/07/17 18:08 Pepto-Bismol PO Q4 PRN Diarrhea Clonidine HCl 0.2 mg 05/08/17 09:00 05/08/17 08:36 Catapres PO 0.2 mg BID [facility] Administration Dextrose 0 ml 05/07/17 18:59 Dextrose 50% Inj IV STAT PRN Hypoglycemia Protocol Protocol Dextrose 0 gm 05/07/17 18:59 Glutose 15 PO ONCE PRN Hypoglycemia Protocol Protocol Furosemide 40 mg 05/09/17 09:00 Lasix PO DAILY [facility] Gabapentin 100 mg 05/08/17 09:00 05/08/17 08:31 Neurontin PO 100 mg BID [facility] Administration Glipizide 15 mg 05/08/17 07:30 05/08/17 08:37 Glucotrol PO 15 mg ACB [facility] Administration Glipizide 10 mg 05/08/17 16:30 Glucotrol PO ACD [facility] Glucagon 0 mg 05/07/17 18:59 Glucagen Diagnostic Kit IM STAT PRN Hypoglycemia Protocol Protocol Heparin Sodium (Porcine) 5,000 units 05/07/17 21:00 05/08/17 08:37 Heparin SC Not Given Q12 [facility] Protocol Hydralazine HCl 100 mg 05/08/17 09:00 05/08/17 12:39 Apresoline PO 100 mg TID [facility] Administration Insulin Human Regular 0 units 05/07/17 22:00 05/08/17 12:41 Humulin R SC 2 u ACHS [facility] Administration Protocol Lidocaine 1 ea 05/08/17 09:00 05/08/17 08:30 Lidoderm TD Not Given DAILY [facility] Lorazepam 0.5 mg 05/07/17 18:08 Ativan PO 05/21/17 18:09 HS PRN Insomnia Lorazepam 0.5 mg 05/07/17 18:08 Ativan PO 05/21/17 18:09 Q6 PRN Anixety/Agitation Magnesium Hydroxide 30 ml 05/07/17 18:08 Milk Of Magnesia PO HS PRN Constipation Metoprolol Succinate 50 mg 05/08/17 09:00 05/08/17 08:40 Toprol Xl PO 50 mg DAILY [facility] Administration Mirtazapine 15 mg 05/07/17 22:00 05/07/17 21:16 Remeron PO 15 mg HS [facility] Administration Pentoxifylline 400 mg 05/08/17 09:00 05/08/17 08:31 Pentoxil PO 400 mg DAILY [facility] Administration Risperidone 0.5 mg 05/07/17 22:00 05/07/17 21:16 Risperdal Tab PO 0.5 mg HS [facility] Administration Sevelamer Carbonate 0.8 gm 05/08/17 09:00 05/08/17 08:39 Renvela PO 0.8 gm BID [facility] Administration Past Psychiatric History - Past Psychiatric History Prior Professional Help: history of bipolar disease Pertinent Medical Hx (Current Medical&Sleep Prob, Allergies): Allergies Allergy/AdvReac Type Severity Reaction Status Date / Time No Known Allergies Allergy Verified 04/23/17 19:06 Aspirin [Ecotrin] 81 mg PO DAILY #30 tabec 04/15/17 Atorvastatin [Lipitor] 40 mg PO DAILY #30 tab 04/15/17 Metoprolol Succinate [Toprol XL] 50 mg PO DAILY #30 tab 04/15/17 amLODIPine [Norvasc] 10 mg PO DAILY #30 tab 04/15/17 cloNIDine [Catapres] 1 tab PO BID 30 Days tab 04/15/17 hydrALAZINE [Apresoline] 50 mg PO TID #90 tab 04/15/17 Dextrose 50% [Dextrose 50% Inj] 0 ml IV STAT PRN syr 05/07/17 Dextrose Oral [Glutose 15] 0 gm PO ONCE PRN tube 05/07/17 Furosemide [Lasix] 80 mg PO DAILY tab 05/07/17 Gabapentin [Neurontin] 100 mg PO BID cap 05/07/17 GlipiZIDE [Glucotrol] 10 mg PO ACD tab 05/07/17 GlipiZIDE [Glucotrol] 15 mg PO ACB tab 05/07/17 Glucagon [Glucagen Diagnostic Kit] 0 mg IM STAT PRN vial 05/07/17 Heparin 5,000 units SC Q12 vial 05/07/17 Insulin Human Regular [HumuLIN R] 0 units SC ACHS ml 05/07/17 Metoprolol Succinate [Toprol XL] 50 mg PO DAILY tab 05/07/17 Mirtazapine [Remeron] 15 mg PO HS tab 05/07/17 Pentoxifylline [Pentoxil] [address] 05/07/17 Sevelamer Carbonate [Renvela] 0.8 gm PO BID packet 05/07/17 risperiDONE [RisperDAL Tab] 0.5 mg PO HS tab 05/07/17 PMHx : CHF (Echo: 07/2016, EF: 45-50% w/abnml relaxation Grade II), DM, HTN, CKD Stage III, Anemia, Lung Nodule, CHF exacerbation and found to have, pleural effusion, pulm nodules, acute on CKD and acute on chronic anemia. Evaluated by Nephro and Hem-onc, S/P Thoracocentesis(negative for malignancy or AFB), sputum neg for AFB, s/p 1 unit of PRBC transfusion and bone marrow biopsy to r/o hematologic malignancy Review of Systems - Psychiatric Psychiatric: Abnormal Sleep Pattern, Anxiety, Depression, Suicidal Ideation Mental Status Examination - Personal Presentation Personal Presentation: Looks stated age - Affect Affect: Constricted - Motor Activity Motor Activity: Calm - Reliability in Providing Information Reliability in Providing Information: Fair - Speech Additional comments: fairly goal directed somewhat circumstantial at times - Mood Mood: Depressed, Anxious - Formal Thought Process Formal Thought Process: Paranoia Additional comments: reportedly on floor was offering complaints that he was being followed currently denies - Hallucinations/Delusions Delusions: Persecution - Obsessions/Compulsions Obsessions: No Compulsions: No - Cognitive Functions Orientation: Person, Place, Situation Sensorium: Alert Attention/Concentration: Attentive Judgement: Imparied, as evidence by: Other Memory: Recent impaired, as evidenced by: Other - Risk Risk: Suicidal - Strength & Assets Inventory Additional comments: verbally signed - Limitations Additional comments: homeless decreased social support DSM 5 DX - DSM 5 DSM 5 Diagnosis: History of Bipolar Illness?MRE Depressed Alteration in Domicile: Homeless - Recommended/Plan of Treatment Treatment Recommendations and Plan of Treatment: inpt per attending vital signs and clinical observation per protocol and per clinical status prns per unit protocol hospitalist consult Increase mirtazepine to 30mg po hs (was on 15mg while and medical floor and continues to exhibit c/o depression) continue risperidone 0.5mg po hs get up slowly team has been in communication with hospitalist related to pt's refusal of lovenox Discharge planning in progress Projected ELOS: 5-7 days Prognosis: guarded Discharge Plan and Discharge Criteria: safety - Smoking Cessation Smoking Cessation Initiated: No Reason for not providing: pt deferred
[2017-05-08 17:51] LABS: FOLATE 13.3 ng/mL
[2017-05-09 07:16] LABS: HEMATOCRIT 26.8 % (35.0-51.0); MEAN CELL VOLUME 94.6 fl (80.0-94.0); MEAN CORPUSCULAR HGB CONC 33.8 g/dL (33.0-37.0); RED CELL DISTRIBUTION WIDTH 14.6 % (11.5-14.5); WHITE BLOOD COUNT 6.1 K/uL (4.8-10.8)
[2017-05-09 07:19] LABS: POTASSIUM 4.8 MMOL/L (3.6-5.0)
[2017-05-09 07:23] LABS: CALCIUM 8.4 mg/dL (8.4-10.2); PARTIAL THROMBOPLASTIN TIME 34.6 Seconds (25.6-37.1)
--- NOTE | 2017-05-09 08:26 | PCM.PYCHPN ---
Psychiatric Progress Note - Psychiatric Progress Note Patient seen today, length of contact: Patient evaluated, case discussed with team, chart reviewed, 35 min Patient Chief Complaint: "I'm still hearing voices" Problems Identified/Issues Discussed: Patient was observed lying calmly in bed. He continues to have auditory hallucinations, last heard last night. He can not recall what they say. He continues to feel depressed and hopeless. He reports improving sleep/appetite and denies current ideation to harm himself. We discussed continued titration of Risperdal. r/b/se reviewed. Medication Change: Yes (Increase Risperdal to 1 mg PO HS) Medical Record Reviewed: Yes Consults ordered or reviewed: Medicine consult appreciated Mental Status Examination - Cognitive Function Orientation: Person, Place, Situation Fund of Knowledge: [facility] Decription of patient's judgement and insights: Fair I/J - Mood Mood: Depressed, Anxious - Affect Affect: Constricted - Formal Thought Process Formal Thought Process: Hallucinations (Recent, not current) - Suicidal Ideation Suicidal Ideation: No - Homicidal Ideation Homicidal Ideation: No Goal/Treatment Plan - Goal/Treatment Plan Need for Continued Stay: Remain at risks for inpatient hospitalization, Severe depression anxiety, Discharge may exacerbated symptoms, Severe functional impairment Progress Toward Problem(s) and Goals/Treatment Plan: Major Depressive Disorder w/ psychotic features; patient requires continued hospitalization for treatment and safety -Continue Remeron 30 mg PO HS -Increase Risperdal to 1 mg PO HS -Individual and group therapy -Medicine consult appreciated -Disposition planning Estimated Date of D/C: 05/14/17
[2017-05-09] MEDS: Insulin Regular 100 units/ml SC SCH ×3 (08:30→17:04)
[2017-05-09] MEDS: Lidocaine 5% Patch TD SCH (08:32)
[2017-05-09] MEDS: Sevelamer Carb 0.8 gm/Packet PO SCH ×2 (08:34→17:02)
[2017-05-09] MEDS: Metoprolol Succinate 50 mg XL Tab PO SCH (08:35)
--- NOTE | 2017-05-09 11:32 | CP.PCM.CON ---
History of Present Illness - History of Present Illness History of Present Illness: 66 year old male with a history of DM, HTN, CKD, CHF, IgA kappa restricted monoclonal gammopathy s/p bone marrow biopsy a few days ago to evaluate for multiple myeloma, admitted to inpatient psychiatry for mood disorder. The patient reports to some pain at the bone marrow biopsy site. Otherwise, he has no complaints. Past medical history: DM, HTN, CKD, CHF Past surgical history: None Family history: Denies hematologic and oncologic problems Social history: Denies tobacco, alcohol, and illicit drug use. Allergies: NKA Review of systems: All remaining review of systems including HEENT, cardiovascular, respiratory, gastrointestinal, genitourinary, musculoskeletal, dermatologic, neurologic, and psychiatric are negative unless mentioned in the HPI. Past Patient History - Infectious Disease Hx of Infectious Diseases: None - Tetanus Immunizations Tetanus Immunization: Unknown - Past Medical History & Family History Past Medical History?: Yes - Past Social History Smoking Status: Light Smoker < 10 Cigarettes Daily - CARDIAC Hx Congestive Heart Failure: Yes Hx Hypercholesterolemia: No Hx Hypertension: Yes Hx Peripheral Edema: Yes - PULMONARY Hx Chronic Obstructive Pulmonary Disease (COPD): No Hx Pneumonia: Yes - NEUROLOGICAL Hx Neurological Disorder: No Hx Dementia: No - HEENT Hx HEENT Problems: No - RENAL Hx Chronic Kidney Disease: Yes - ENDOCRINE/METABOLIC Hx Endocrine Disorders: Yes Hx Diabetes Mellitus Type 2: Yes Hx Hypothyroidism: No - HEMATOLOGICAL/ONCOLOGICAL Hx Blood Disorders: No Hx Anemia: Yes Hx Blood Transfusions: Yes - INTEGUMENTARY Hx Dermatological Problems: No - MUSCULOSKELETAL/RHEUMATOLOGICAL Hx Arthritis: No Hx Falls: Yes Hx Rheumatoid Arthritis: No Hx Unsteady Gait: Yes - GASTROINTESTINAL Hx Gastrointestinal Disorders: No - GENITOURINARY/GYNECOLOGICAL Hx Genitourinary Disorders: No - PSYCHIATRIC Hx Depression: Yes Hx Hallucinations: Yes Hx Substance Use: No - SURGICAL HISTORY Hx Surgeries: No - ANESTHESIA Hx Anesthesia: Yes Hx Anesthesia Reactions: No Hx Malignant Hyperthermia: No Meds Allergies/Adverse Reactions: Allergies Allergy/AdvReac Type Severity Reaction Status Date / Time No Known Allergies Allergy Verified 04/23/17 19:06 - Medications Medications: Current Medications Acetaminophen (Tylenol 325mg Tab) 650 mg PO Q4 PRN PRN Reason: Pain, moderate (4-7) Al Hydrox/Mg Hydrox/Simethicone (Maalox Plus 30 Ml) 30 ml PO Q4 PRN PRN Reason: Dyspepsia Amlodipine Besylate (Norvasc) 10 mg PO DAILY [facility] Last Admin: 05/09/17 08:34 Dose: 10 mg Aspirin (Ecotrin) 81 mg PO DAILY [facility] Last Admin: 05/09/17 08:29 Dose: 81 mg Atorvastatin Calcium (Lipitor) 40 mg PO DAILY [facility] Last Admin: 05/09/17 08:37 Dose: 40 mg Bismuth Subsalicylate (Pepto-Bismol) 524 mg PO Q4 PRN PRN Reason: Diarrhea Clonidine HCl (Catapres) 0.2 mg PO BID [facility] Last Admin: 05/09/17 08:28 Dose: 0.2 mg Dextrose (Dextrose 50% Inj) 0 ml IV STAT PRN; Protocol PRN Reason: Hypoglycemia Protocol Dextrose (Glutose 15) 0 gm PO ONCE PRN; Protocol PRN Reason: Hypoglycemia Protocol Furosemide (Lasix) 40 mg PO DAILY [facility] Last Admin: 05/09/17 08:31 Dose: 40 mg Gabapentin (Neurontin) 100 mg PO BID [facility] Last Admin: 05/08/17 17:27 Dose: 100 mg Glipizide (Glucotrol) 15 mg PO ACB [facility] Last Admin: 05/09/17 08:30 Dose: 15 mg Glipizide (Glucotrol) 10 mg PO ACD [facility] Last Admin: 05/08/17 17:26 Dose: 10 mg Glucagon (Glucagen Diagnostic Kit) 0 mg IM STAT PRN; Protocol PRN Reason: Hypoglycemia Protocol Heparin Sodium (Porcine) (Heparin) 5,000 units SC Q12 THOMAS PRN Reason: Protocol Last Admin: 05/09/17 08:30 Dose: 5,000 units Hydralazine HCl (Apresoline) 100 mg PO TID [facility] Last Admin: 05/09/17 08:26 Dose: 100 mg Insulin Human Regular (Humulin R) 0 units SC ACHS THOMAS PRN Reason: Protocol Last Admin: 05/09/17 08:30 Dose: 2 u Lidocaine (Lidoderm) 1 ea TD DAILY [facility] Last Admin: 05/09/17 08:32 Dose: 1 ea Lorazepam (Ativan) 0.5 mg PO HS PRN PRN Reason: Insomnia Stop: 05/21/17 18:09 Lorazepam (Ativan) 0.5 mg PO Q6 PRN PRN Reason: Anixety/Agitation Stop: 05/21/17 18:09 Magnesium Hydroxide (Milk Of Magnesia) 30 ml PO HS PRN PRN Reason: Constipation Metoprolol Succinate (Toprol Xl) 50 mg PO DAILY [facility] Last Admin: 05/09/17 08:35 Dose: 50 mg Mirtazapine (Remeron) 30 mg PO HS [facility] Last Admin: 05/08/17 21:24 Dose: 30 mg Pentoxifylline (Pentoxil) 400 mg PO DAILY [facility] Last Admin: 05/09/17 08:33 Dose: 400 mg Risperidone (Risperdal Tab) 1 mg PO [facility] Sevelamer Carbonate (Renvela) 0.8 gm PO BID [facility] Last Admin: 05/09/17 08:34 Dose: 0.8 gm Physical Exam - Head Exam Head Exam: ATRAUMATIC - Eye Exam Eye Exam: Normal appearance - ENT Exam ENT Exam: Mucous Membranes Dry - Respiratory Exam Respiratory Exam: NORMAL BREATHING PATTERN - Cardiovascular Exam Cardiovascular Exam: +S1, +S2 - GI/Abdominal Exam GI & Abdominal Exam: Normal Bowel Sounds - Extremities Exam Extremities exam: Positive for: normal inspection - Neurological Exam Neurological exam: Oriented x3 - Psychiatric Exam Psychiatric exam: Flat Affect - Skin Skin Exam: Warm Results - Vital Signs Recent Vital Signs: Last Vital Signs Temp 97.7 F 05/09/17 05:34 Pulse 67 05/09/17 08:35 Resp 18 05/09/17 05:34 BP 154/65 H 05/09/17 08:35 Pulse Ox 97 05/09/17 05:34 - Labs Result Diagrams: 05/09/17 06:40 05/09/17 06:40 Labs: Laboratory Results - last 24 hr 05/07/17 05/08/17 05/08/17 11:35 06:00 06:00 WBC RBC Hgb Hct MCV MCH MCHC RDW Plt Count PT INR APTT Sodium Potassium Chloride Carbon Dioxide Anion Gap BUN Creatinine Est GFR ( Amer) Est GFR (Non-Af Amer) POC Glucose (mg/dL) Random Glucose Hemoglobin A1c 7.2 H Calcium Folate 13.3 Urine Color Straw Urine Clarity Clear Urine pH 6.0 Ur Specific [place] 1.011 Urine Protein 100 Urine Glucose (UA) 50 Urine Ketones Negative Urine Blood Negative Urine Nitrate Negative Urine Bilirubin Negative Urine Urobilinogen 0.2-1.0 Ur Leukocyte Esterase Neg Urine RBC (Auto) 3 Urine Microscopic WBC 4 Ur Squamous Epith Cells < 1 RPR 05/08/17 05/08/17 05/08/17 06:30 11:27 15:32 WBC RBC Hgb Hct MCV MCH MCHC RDW Plt Count PT INR APTT Sodium Potassium Chloride Carbon Dioxide Anion Gap BUN Creatinine Est GFR ( Amer) Est GFR (Non-Af Amer) POC Glucose (mg/dL) 249 H < 20 L* Random Glucose Hemoglobin A1c Calcium Folate Urine Color Urine Clarity Urine pH Ur Specific [place] Urine Protein Urine Glucose (UA) Urine Ketones Urine Blood Urine Nitrate Urine Bilirubin Urine Urobilinogen Ur Leukocyte Esterase Urine RBC (Auto) Urine Microscopic WBC Ur Squamous Epith Cells RPR Nonreactive 05/08/17 05/08/17 05/09/17 15:34 20:04 05:32 WBC RBC Hgb Hct MCV MCH MCHC RDW Plt Count PT INR APTT Sodium Potassium Chloride Carbon Dioxide Anion Gap BUN Creatinine Est GFR ( Amer) Est GFR (Non-Af Amer) POC Glucose (mg/dL) 202 H 109 239 H Random Glucose Hemoglobin A1c Calcium Folate Urine Color Urine Clarity Urine pH Ur Specific [place] Urine Protein Urine Glucose (UA) Urine Ketones Urine Blood Urine Nitrate Urine Bilirubin Urine Urobilinogen Ur Leukocyte Esterase Urine RBC (Auto) Urine Microscopic WBC Ur Squamous Epith Cells RPR 05/09/17 05/09/17 05/09/17 06:40 06:40 06:40 WBC 6.1 RBC 2.83 L Hgb 9.1 L Hct 26.8 L MCV 94.6 H MCH 32.0 H MCHC 33.8 RDW 14.6 H Plt Count 173 PT 11.9 INR 1.1 APTT 34.6 Sodium 143 Potassium 4.8 Chloride 117 H Carbon Dioxide 20 L Anion Gap 11 BUN 94 H Creatinine 2.7 H Est GFR ( Amer) 29 Est GFR (Non-Af Amer) 24 POC Glucose (mg/dL) Random Glucose 187 H Hemoglobin A1c Calcium 8.4 Folate Urine Color Urine Clarity Urine pH Ur Specific [place] Urine Protein Urine Glucose (UA) Urine Ketones Urine Blood Urine Nitrate Urine Bilirubin Urine Urobilinogen Ur Leukocyte Esterase Urine RBC (Auto) Urine Microscopic WBC Ur Squamous Epith Cells RPR 05/09/17 11:00 WBC RBC Hgb Hct MCV MCH MCHC RDW Plt Count PT INR APTT Sodium Potassium Chloride Carbon Dioxide Anion Gap BUN Creatinine Est GFR ( Amer) Est GFR (Non-Af Amer) POC Glucose (mg/dL) 133 H Random Glucose Hemoglobin A1c Calcium Folate Urine Color Urine Clarity Urine pH Ur Specific [place] Urine Protein Urine Glucose (UA) Urine Ketones Urine Blood Urine Nitrate Urine Bilirubin Urine Urobilinogen Ur Leukocyte Esterase Urine RBC (Auto) Urine Microscopic WBC Ur Squamous Epith Cells RPR Assessment & Plan (1) Monoclonal gammopathy Assessment and Plan: with anemia and renal failure rule out multiple myeloma s/p bone marrow biopsy a few days ago further treatment recommendations based on bone marrow results Thank you for this interesting consult. Status: Acute
--- NOTE | 2017-05-09 13:21 | CP.PCM.PN ---
Subjective - Date & Time of Evaluation Date of Evaluation: 05/09/17 Time of Evaluation: 13:18 - Subjective Subjective: Patient and the psych unit. No chest pain no shortness of breath. No vomiting. Patient reported eating. Physical exam Chest no significant rales Heart no rubs. Abdomen soft. Extremity may be trace edema. Lab reviewed Impression and plan Monitor kidney disease stable kidney function stage IV Blood pressure is still slightly elevated but reasonably acceptable. Waiting for hematology for the bone marrow report. To rule out multiple myeloma. Diabetes mellitus. Protein to creatinine ratio pending. PTH and phosphorus pending. Continue monitoring. Objective - Vital Signs/Intake and Output Vital Signs (last 24 hours): Temp Pulse Resp BP Pulse Ox 97.7 F 67 18 154/65 H 97 05/09/17 05:34 05/09/17 08:35 05/09/17 05:34 05/09/17 08:35 05/09/17 05:34 - Medications Medications: Current Medications Acetaminophen (Tylenol 325mg Tab) 650 mg PO Q4 PRN PRN Reason: Pain, moderate (4-7) Al Hydrox/Mg Hydrox/Simethicone (Maalox Plus 30 Ml) 30 ml PO Q4 PRN PRN Reason: Dyspepsia Amlodipine Besylate (Norvasc) 10 mg PO DAILY [facility] Last Admin: 05/09/17 08:34 Dose: 10 mg Aspirin (Ecotrin) 81 mg PO DAILY [facility] Last Admin: 05/09/17 08:29 Dose: 81 mg Atorvastatin Calcium (Lipitor) 40 mg PO DAILY [facility] Last Admin: 05/09/17 08:37 Dose: 40 mg Bismuth Subsalicylate (Pepto-Bismol) 524 mg PO Q4 PRN PRN Reason: Diarrhea Clonidine HCl (Catapres) 0.2 mg PO BID [facility] Last Admin: 05/09/17 08:28 Dose: 0.2 mg Dextrose (Dextrose 50% Inj) 0 ml IV STAT PRN; Protocol PRN Reason: Hypoglycemia Protocol Dextrose (Glutose 15) 0 gm PO ONCE PRN; Protocol PRN Reason: Hypoglycemia Protocol Furosemide (Lasix) 40 mg PO DAILY [facility] Last Admin: 05/09/17 08:31 Dose: 40 mg Gabapentin (Neurontin) 100 mg PO BID [facility] Last Admin: 05/08/17 17:27 Dose: 100 mg Glipizide (Glucotrol) 15 mg PO ACB [facility] Last Admin: 05/09/17 08:30 Dose: 15 mg Glipizide (Glucotrol) 10 mg PO ACD [facility] Last Admin: 05/08/17 17:26 Dose: 10 mg Glucagon (Glucagen Diagnostic Kit) 0 mg IM STAT PRN; Protocol PRN Reason: Hypoglycemia Protocol Heparin Sodium (Porcine) (Heparin) 5,000 units SC Q12 [facility]OMAS PRN Reason: Protocol Last Admin: 05/09/17 08:30 Dose: 5,000 units Hydralazine HCl (Apresoline) 100 mg PO TID [facility] Last Admin: 05/09/17 08:26 Dose: 100 mg Insulin Human Regular (Humulin R) 0 units SC ACHS [facility]OM[facility] PRN Reason: Protocol Last Admin: 05/09/17 08:30 Dose: 2 u Lidocaine (Lidoderm) 1 ea TD DAILY [facility] Last Admin: 05/09/17 08:32 Dose: 1 ea Lorazepam (Ativan) 0.5 mg PO HS PRN PRN Reason: Insomnia Stop: 05/21/17 18:09 Lorazepam (Ativan) 0.5 mg PO Q6 PRN PRN Reason: Anixety/Agitation Stop: 05/21/17 18:09 Magnesium Hydroxide (Milk Of Magnesia) 30 ml PO HS PRN PRN Reason: Constipation Metoprolol Succinate (Toprol Xl) 50 mg PO DAILY [facility] Last Admin: 05/09/17 08:35 Dose: 50 mg Mirtazapine (Remeron) 30 mg PO HS [facility] Last Admin: 05/08/17 21:24 Dose: 30 mg Pentoxifylline (Pentoxil) 400 mg PO DAILY [facility] Last Admin: 05/09/17 08:33 Dose: 400 mg Risperidone (Risperdal Tab) 1 mg PO HS [facility] Sevelamer Carbonate (Renvela) 0.8 gm PO BID [facility] Last Admin: 05/09/17 08:34 Dose: 0.8 gm - Labs Labs: 05/09/17 06:40 05/09/17 06:40 PT 11.9 Seconds (9.8-13.1) 05/09/17 06:40 INR 1.1 (0.9-1.2) 05/09/17 06:40 APTT 34.6 Seconds (25.6-37.1) 05/09/17 06:40 Assessment and Plan (1) Acute kidney injury superimposed on chronic kidney disease Status: Acute (2) Hyperkalemia Status: Acute
[2017-05-09 14:14] LABS: CREATININE, RANDOM URINE 46.8 mg/dL
[2017-05-10] MEDS: Lidocaine 5% Patch TD SCH (08:42)
[2017-05-10] MEDS: Insulin Regular 100 units/ml SC SCH ×4 (08:47→22:00)
[2017-05-10] MEDS: Sevelamer Carb 0.8 gm/Packet PO SCH ×2 (08:50→17:11)
[2017-05-10] MEDS: Metoprolol Succinate 50 mg XL Tab PO SCH (08:50)
--- NOTE | 2017-05-10 09:06 | PCM.PYCHPN ---
Psychiatric Progress Note - Psychiatric Progress Note Patient seen today, length of contact: Patient evaluated, case discussed with team, chart reviewed, 35 min Patient Chief Complaint: "I'm still hearing voices" Problems Identified/Issues Discussed: Patient was observed lying calmly in bed. He continues to have auditory hallucinations, last heard this morning. He can not recall what they say. He continues to feel depressed and hopeless w/ poor sleep. We discussed continued titration of Risperdal. r/b/se reviewed. Medication Change: Yes (Increase Risperdal to 2 mg PO HS) Medical Record Reviewed: Yes Mental Status Examination - Cognitive Function Orientation: Person, Place, Situation Fund of Knowledge: [facility] Decription of patient's judgement and insights: Fair I/J - Mood Mood: Depressed, Anxious - Affect Affect: Constricted - Formal Thought Process Formal Thought Process: Hallucinations (Recent, not current) Psychotic Thoughts and Behaviors: +AH - Suicidal Ideation Suicidal Ideation: No - Homicidal Ideation Homicidal Ideation: No Goal/Treatment Plan - Goal/Treatment Plan Need for Continued Stay: Remain at risks for inpatient hospitalization, Severe depression anxiety, Discharge may exacerbated symptoms, Severe functional impairment Progress Toward Problem(s) and Goals/Treatment Plan: Major Depressive Disorder w/ psychotic features; patient requires continued hospitalization for treatment and safety -Continue Remeron 30 mg PO HS -Increase Risperdal to 2 mg PO HS -Individual and group therapy -Medicine consult appreciated -Disposition planning Estimated Date of D/C: 05/14/17
--- NOTE | 2017-05-10 10:58 | CP.PCM.PN ---
Subjective - Date & Time of Evaluation Date of Evaluation: 05/10/17 Time of Evaluation: 11:00 - Subjective Subjective: 66 y/o M seen at bedside in not acute distress. Denies CP, palpitations, SOB, vomiting, diarrhea, nausea. C/O mild pain in the R/hip superficial, around the site of bone marrow biopsy, that resolves with lidoderm patch. Patient has been refusing heparin sq administration because of ecchymosis, small hematoma in the area of the injections. He states that he walks inside the room but not very often. Denies LE edema or pain. Objective - Vital Signs/Intake and Output Vital Signs (last 24 hours): Temp Pulse Resp BP Pulse Ox 98.1 F 65 18 152/66 H 97 05/10/17 06:00 05/10/17 08:50 05/10/17 06:00 05/10/17 08:50 05/09/17 05:34 - Medications Medications: Current Medications Acetaminophen (Tylenol 325mg Tab) 650 mg PO Q4 PRN PRN Reason: Pain, moderate (4-7) Al Hydrox/Mg Hydrox/Simethicone (Maalox Plus 30 Ml) 30 ml PO Q4 PRN PRN Reason: Dyspepsia Amlodipine Besylate (Norvasc) 10 mg PO DAILY [facility] Last Admin: 05/10/17 08:49 Dose: 10 mg Aspirin (Ecotrin) 81 mg PO DAILY [facility] Last Admin: 05/10/17 08:45 Dose: 81 mg Atorvastatin Calcium (Lipitor) 40 mg PO DAILY [facility] Last Admin: 05/10/17 08:48 Dose: 40 mg Bismuth Subsalicylate (Pepto-Bismol) 524 mg PO Q4 PRN PRN Reason: Diarrhea Clonidine HCl (Catapres) 0.2 mg PO BID [facility] Last Admin: 05/10/17 08:44 Dose: 0.2 mg Dextrose (Dextrose 50% Inj) 0 ml IV STAT PRN; Protocol PRN Reason: Hypoglycemia Protocol Dextrose (Glutose 15) 0 gm PO ONCE PRN; Protocol PRN Reason: Hypoglycemia Protocol Furosemide (Lasix) 40 mg PO DAILY [facility] Last Admin: 05/10/17 08:48 Dose: 40 mg Gabapentin (Neurontin) 100 mg PO BID [facility] Last Admin: 05/10/17 08:49 Dose: 100 mg Glipizide (Glucotrol) 15 mg PO ACB [facility] Last Admin: 05/10/17 08:46 Dose: 15 mg Glipizide (Glucotrol) 10 mg PO ACD [facility] Last Admin: 05/09/17 17:00 Dose: 10 mg Glucagon (Glucagen Diagnostic Kit) 0 mg IM STAT PRN; Protocol PRN Reason: Hypoglycemia Protocol Heparin Sodium (Porcine) (Heparin) 5,000 units SC Q12 THOMAS PRN Reason: Protocol Last Admin: 05/10/17 08:46 Dose: Not Given Hydralazine HCl (Apresoline) 100 mg PO TID [facility] Last Admin: 05/10/17 08:44 Dose: 100 mg Insulin Human Regular (Humulin R) 0 units SC ACHS [facility]OMAS PRN Reason: Protocol Last Admin: 05/10/17 08:47 Dose: 1 u Lidocaine (Lidoderm) 1 ea TD DAILY [facility] Last Admin: 05/10/17 08:42 Dose: 1 ea Lorazepam (Ativan) 0.5 mg PO HS PRN PRN Reason: Insomnia Stop: 05/21/17 18:09 Lorazepam (Ativan) 0.5 mg PO Q6 PRN PRN Reason: Anixety/Agitation Stop: 05/21/17 18:09 Magnesium Hydroxide (Milk Of Magnesia) 30 ml PO HS PRN PRN Reason: Constipation Metoprolol Succinate (Toprol Xl) 50 mg PO DAILY [facility] Last Admin: 05/10/17 08:50 Dose: 50 mg Mirtazapine (Remeron) 30 mg PO HS [facility] Last Admin: 05/09/17 21:23 Dose: 30 mg Pentoxifylline (Pentoxil) 400 mg PO DAILY [facility] Last Admin: 05/10/17 08:49 Dose: 400 mg Risperidone (Risperdal Tab) 2 mg PO HS [facility] Sevelamer Carbonate (Renvela) 0.8 gm PO BID [facility] Last Admin: 05/10/17 08:50 Dose: 0.8 gm - Labs Labs: 05/09/17 06:40 05/09/17 06:40 PT 11.9 Seconds (9.8-13.1) 05/09/17 06:40 INR 1.1 (0.9-1.2) 05/09/17 06:40 APTT 34.6 Seconds (25.6-37.1) 05/09/17 06:40 - Constitutional Appears: Non-toxic, No Acute Distress - Eye Exam Eye Exam: EOMI, PERRL - ENT Exam ENT Exam: Mucous Membranes Moist - Respiratory Exam Respiratory Exam: Clear to Ausculation Bilateral, NORMAL BREATHING PATTERN. absent: Rales, Wheezes - Cardiovascular Exam Cardiovascular Exam: REGULAR RHYTHM, +S1, +S2, Murmur (3/6) - GI/Abdominal Exam GI & Abdominal Exam: Soft, Normal Bowel Sounds. absent: Distended, Tenderness - Extremities Exam Extremities Exam: Full ROM, Normal Capillary Refill. absent: Calf Tenderness, Joint Swelling - Neurological Exam Neurological Exam: Alert, Awake, Oriented x3 - Skin Skin Exam: Warm Assessment and Plan - Assessment and Plan (Free Text) Assessment: 66 y/o M with PMH including Systolic CHF, HTN, CKD, NIDDM2 and bipolar disorder is admitted to psychiatric unit for Depression Depression, acute on chronic -Stable -No SI or HI -Managed by Psych service Anemia, acute on chronic -Stable. Poss CKD VS malignancy -EPO WNL -Heme/Onc consult by Dr Iraheta appreciated -F/U Bone marrow biopsy results(ruling out MM) Hypertension -Improved -Likely due to underlying CKD stage 3B -Nephro consult appreciated -Continue current plan CKD stage 3B -Last bun/cr 94/2.7 -Nephro consulted. Recs appreciated -Continue Sevelamer BID Pulmonary nodules and questionable cavitary lesion on CT/CXR -Unlikely malignancy -Pulmonology sign off. F/U as outpatient -Needs latent TB treatment as outpatient Chronic systolic CHF -Controlled -Last Echo EF 45-50% on 07/2016 -Lasix 40 mg daily Non insulin dependent Type II DM controlled -C/W Glipizide 15 mg breakfast and 10 mg dinner -ACHS -SSI Hyperkalemia -Resolved DVT Prophylaxis -Compression stockings -Heparin DCed. -Ambulation encouraged
[2017-05-11] MEDS: Insulin Regular 100 units/ml SC SCH ×5 (08:26→21:02)
[2017-05-11] MEDS: Lidocaine 5% Patch TD SCH (08:29)
[2017-05-11] MEDS: Sevelamer Carb 0.8 gm/Packet PO SCH ×2 (08:33→16:49)
[2017-05-11] MEDS: Metoprolol Succinate 50 mg XL Tab PO SCH (08:33)
[2017-05-11 08:58] LABS: CALCIUM 8.9 mg/dL (8.4-10.2)
--- NOTE | 2017-05-11 09:31 | PCM.PYCHPN ---
Psychiatric Progress Note - Psychiatric Progress Note Patient seen today, length of contact: Patient evaluated, case discussed with team, chart reviewed, 35 min Patient Chief Complaint: "I'm still hearing voices" Problems Identified/Issues Discussed: No new events overnight. He continues to have intermittent AH. He continues to feel depressed and hopeless w/ poor sleep. No adverse effects to medications noted. Medication Change: No Medical Record Reviewed: Yes Consults ordered or reviewed: Medicine consult appreciated Mental Status Examination - Cognitive Function Orientation: Person, Place, Situation Fund of Knowledge: [facility] Decription of patient's judgement and insights: Fair I/J - Mood Mood: Depressed - Affect Affect: Constricted - Formal Thought Process Formal Thought Process: Hallucinations (Recent, not current) Psychotic Thoughts and Behaviors: +AH - Suicidal Ideation Suicidal Ideation: No - Homicidal Ideation Homicidal Ideation: No Goal/Treatment Plan - Goal/Treatment Plan Need for Continued Stay: Remain at risks for inpatient hospitalization, Severe depression anxiety, Discharge may exacerbated symptoms, Severe functional impairment Progress Toward Problem(s) and Goals/Treatment Plan: Major Depressive Disorder w/ psychotic features; patient requires continued hospitalization for treatment and safety -Continue Remeron 30 mg PO HS -Continue Risperdal 2 mg PO HS -Individual and group therapy -Medicine consult appreciated -Disposition planning Estimated Date of D/C: 05/15/17
[2017-05-12] MEDS: Metoprolol Succinate 50 mg XL Tab PO SCH (08:29)
[2017-05-12] MEDS: Lidocaine 5% Patch TD SCH (08:39)
[2017-05-12] MEDS: Sevelamer Carb 0.8 gm/Packet PO SCH ×2 (08:45→17:21)
[2017-05-12] MEDS: Insulin Regular 100 units/ml SC SCH ×4 (08:46→21:10)
--- NOTE | 2017-05-12 09:47 | PCM.PYCHPN ---
Psychiatric Progress Note - Psychiatric Progress Note Patient seen today, length of contact: Patient evaluated, case discussed with team, chart reviewed, 35 min Patient Chief Complaint: "I'm still hearing voices" Problems Identified/Issues Discussed: No new events over the weekend. He continues to have intermittent AH. He continues to feel depressed and hopeless. No adverse effects to medications noted. Medication Change: Yes (Increase Risperdal to 3 mg PO HS) Medical Record Reviewed: Yes Consults ordered or reviewed: Medicine consult appreciated Mental Status Examination - Cognitive Function Orientation: Person, Place, Situation Fund of Knowledge: [facility] Decription of patient's judgement and insights: Fair I/J - Mood Mood: Depressed - Affect Affect: Constricted - Formal Thought Process Formal Thought Process: Hallucinations (Recent, not current) Psychotic Thoughts and Behaviors: +AH - Suicidal Ideation Suicidal Ideation: No - Homicidal Ideation Homicidal Ideation: No Goal/Treatment Plan - Goal/Treatment Plan Need for Continued Stay: Remain at risks for inpatient hospitalization, Severe depression anxiety, Discharge may exacerbated symptoms, Severe functional impairment Progress Toward Problem(s) and Goals/Treatment Plan: Major Depressive Disorder w/ psychotic features; patient requires continued hospitalization for treatment and safety -Continue Remeron 30 mg PO HS -Increase Risperdal to 3 mg PO HS -Individual and group therapy -Medicine consult appreciated -Disposition planning Estimated Date of D/C: 05/15/17
[2017-05-13] MEDS: Insulin Regular 100 units/ml SC SCH ×4 (08:21→21:07)
[2017-05-13] MEDS: Metoprolol Succinate 50 mg XL Tab PO SCH (08:22)
[2017-05-13] MEDS: Sevelamer Carb 0.8 gm/Packet PO SCH ×3 (08:23→16:48)
[2017-05-13] MEDS: Lidocaine 5% Patch TD SCH (08:26)
--- NOTE | 2017-05-13 08:50 | CP.PCM.PN ---
Subjective - Date & Time of Evaluation Date of Evaluation: 05/13/17 Time of Evaluation: 08:30 - Subjective Subjective: 66 y/o M seen at bedside in not acute distress. Patient has no complains today other than he is not very happy of being in the psych unit. He states that "people steal his food" because he ask for certain type of food and it never comes in the tray. Denies CP, palpitations, SOB, headache, abd pain. Patient is always found in bed when visited, he states that he has been walking and watching TV frequently. Objective - Vital Signs/Intake and Output Vital Signs (last 24 hours): Temp Pulse Resp BP Pulse Ox 97.2 F L 74 18 134/79 96 05/13/17 06:00 05/13/17 08:22 05/13/17 06:00 05/13/17 08:22 05/10/17 15:54 - Medications Medications: Current Medications Acetaminophen (Tylenol 325mg Tab) 650 mg PO Q4 PRN PRN Reason: Pain, moderate (4-7) Last Admin: 05/13/17 08:14 Dose: 650 mg Al Hydrox/Mg Hydrox/Simethicone (Maalox Plus 30 Ml) 30 ml PO Q4 PRN PRN Reason: Dyspepsia Amlodipine Besylate (Norvasc) 10 mg PO DAILY [facility] Last Admin: 05/13/17 08:19 Dose: 10 mg Aspirin (Ecotrin) 81 mg PO DAILY [facility] Last Admin: 05/13/17 08:17 Dose: 81 mg Atorvastatin Calcium (Lipitor) 40 mg PO DAILY [facility] Last Admin: 05/13/17 08:23 Dose: 40 mg Bismuth Subsalicylate (Pepto-Bismol) 524 mg PO Q4 PRN PRN Reason: Diarrhea Clonidine HCl (Catapres) 0.2 mg PO BID [facility] Last Admin: 05/13/17 08:17 Dose: 0.2 mg Dextrose (Dextrose 50% Inj) 0 ml IV STAT PRN; Protocol PRN Reason: Hypoglycemia Protocol Dextrose (Glutose 15) 0 gm PO ONCE PRN; Protocol PRN Reason: Hypoglycemia Protocol Furosemide (Lasix) 40 mg PO DAILY [facility] Last Admin: 05/13/17 08:20 Dose: 40 mg Gabapentin (Neurontin) 100 mg PO BID [facility] Last Admin: 05/13/17 08:26 Dose: 100 mg Glipizide (Glucotrol) 15 mg PO ACB [facility] Last Admin: 05/12/17 08:34 Dose: 15 mg Glipizide (Glucotrol) 10 mg PO ACD [facility] Last Admin: 05/12/17 17:19 Dose: 10 mg Glucagon (Glucagen Diagnostic Kit) 0 mg IM STAT PRN; Protocol PRN Reason: Hypoglycemia Protocol Hydralazine HCl (Apresoline) 100 mg PO TID [facility] Last Admin: 05/13/17 08:18 Dose: 100 mg Insulin Human Regular (Humulin R) 0 units SC ACHS THOMAS PRN Reason: Protocol Last Admin: 05/13/17 08:21 Dose: Not Given Lidocaine (Lidoderm) 1 ea TD DAILY [facility] Last Admin: 05/13/17 08:26 Dose: 1 ea Lorazepam (Ativan) 0.5 mg PO HS PRN PRN Reason: Insomnia Stop: 05/21/17 18:09 Lorazepam (Ativan) 0.5 mg PO Q6 PRN PRN Reason: Anixety/Agitation Stop: 05/21/17 18:09 Magnesium Hydroxide (Milk Of Magnesia) 30 ml PO HS PRN PRN Reason: Constipation Metoprolol Succinate (Toprol Xl) 50 mg PO DAILY [facility] Last Admin: 05/13/17 08:22 Dose: 50 mg Mirtazapine (Remeron) 30 mg PO HS [facility] Last Admin: 05/12/17 21:08 Dose: 30 mg Pentoxifylline (Pentoxil) 400 mg PO DAILY [facility] Last Admin: 05/13/17 08:19 Dose: 400 mg Risperidone (Risperdal Tab) 3 mg PO HS [facility] Last Admin: 05/12/17 21:08 Dose: 3 mg Sevelamer Carbonate (Renvela) 0.8 gm PO BID [facility] Last Admin: 05/13/17 08:37 Dose: Not Given - Labs Labs: 05/09/17 06:40 05/11/17 08:44 PT 11.9 Seconds (9.8-13.1) 05/09/17 06:40 INR 1.1 (0.9-1.2) 05/09/17 06:40 APTT 34.6 Seconds (25.6-37.1) 05/09/17 06:40 - Constitutional Appears: Non-toxic, No Acute Distress, Chronically Ill - Eye Exam Eye Exam: EOMI, PERRL - ENT Exam ENT Exam: Mucous Membranes Moist - Respiratory Exam Respiratory Exam: Decreased Breath Sounds. absent: Clear to Ausculation Bilateral (L/lung base), Rales, Wheezes - Cardiovascular Exam Cardiovascular Exam: REGULAR RHYTHM, +S1, +S2. absent: Gallop - GI/Abdominal Exam GI & Abdominal Exam: Soft, Normal Bowel Sounds. absent: Distended, Tenderness - Extremities Exam Extremities Exam: Full ROM, Normal Capillary Refill, Pedal Edema (+1). absent: Calf Tenderness - Neurological Exam Neurological Exam: Alert, Awake, Oriented x3 - Psychiatric Exam Psychiatric exam: Depressed - Skin Skin Exam: Warm Assessment and Plan - Assessment and Plan (Free Text) Assessment: 66 y/o M with PMH including Systolic CHF, HTN, CKD, NIDDM2 and bipolar disorder is admitted to psychiatric unit for Depression Depression, acute on chronic -Stable -No SI or HI -Managed by Psych service Anemia, acute on chronic -Stable. Poss CKD VS malignancy -Heme/Onc consult by Dr Iraheta appreciated -F/U Bone marrow biopsy results(ruling out MM) -F/U CBC AM Hypertension -Controlled -Likely due to underlying CKD stage 3B -Nephro consult appreciated -Continue current plan CKD stage 3B -Last bun/cr 94/2.7 -Nephro consulted. Recs appreciated -Continue Sevelamer BID -F/U BMP AM Non insulin dependent Type II DM controlled -C/W Glipizide 15 mg breakfast and 10 mg dinner -ACHS -SSI DVT Prophylaxis -Compression stockings -Ambulation encouraged
--- NOTE | 2017-05-13 10:47 | PCM.PYCHPN ---
Psychiatric Progress Note - Psychiatric Progress Note Patient seen today, length of contact: Patient evaluated, case discussed with team, chart reviewed, 35 min Patient Chief Complaint: "I'm regular." Problems Identified/Issues Discussed: No new events overnight. Patient reports that his mood is starting to improve. He denies current AH. No adverse effects to medications noted. NO SI/HI. Medication Change: No Medical Record Reviewed: Yes Consults ordered or reviewed: Medicine consult appreciated Mental Status Examination - Cognitive Function Orientation: Person, Place, Situation Fund of Knowledge: [facility] Decription of patient's judgement and insights: Fair I/J - Mood Mood: Depressed - Affect Affect: Constricted - Formal Thought Process Formal Thought Process: No Impairment Psychotic Thoughts and Behaviors: Denies current AH/VH/paranoia/delusions - Suicidal Ideation Suicidal Ideation: No - Homicidal Ideation Homicidal Ideation: No Goal/Treatment Plan - Goal/Treatment Plan Need for Continued Stay: Remain at risks for inpatient hospitalization, Severe depression anxiety, Discharge may exacerbated symptoms, Severe functional impairment Progress Toward Problem(s) and Goals/Treatment Plan: Major Depressive Disorder w/ psychotic features; patient requires continued hospitalization for treatment and safety -Continue Remeron 30 mg PO HS -Continue Risperdal 3 mg PO HS -Individual and group therapy -Medicine consult appreciated -Disposition planning Estimated Date of D/C: 05/19/17
[2017-05-14 07:44] LABS: CALCIUM 8.2 mg/dL (8.4-10.2); POTASSIUM 5.5 MMOL/L (3.6-5.0)
[2017-05-14 07:52] LABS: BASO % 0.8 % (0.0-2.0); EOS # 0.2 K/uL (0.0-0.7); EOS % 3.2 % (0.0-4.0); HEMATOCRIT 25.5 % (35.0-51.0); LYMPH # 1.5 K/uL (1.0-4.3); MEAN CELL VOLUME 95.4 fl (80.0-94.0); MEAN CORPUSCULAR HEMOGLOBIN 31.3 pg (27.0-31.0); MEAN CORPUSCULAR HGB CONC 32.9 g/dL (33.0-37.0); MEAN PLATELET VOLUME 10.7 fl (7.2-11.7); MONO # 0.5 K/uL (0.0-0.8); MONO % 8.7 % (0.0-10.0); NEUT % 63.3 % (50.0-75.0); RED CELL DISTRIBUTION WIDTH 14.4 % (11.5-14.5); WHITE BLOOD COUNT 6.3 K/uL (4.8-10.8)
[2017-05-14] MEDS: Insulin Regular 100 units/ml SC SCH ×4 (08:06→21:05)
[2017-05-14] MEDS: Lidocaine 5% Patch TD SCH (08:07)
[2017-05-14] MEDS: Sevelamer Carb 0.8 gm/Packet PO SCH ×2 (08:12→17:12)
[2017-05-14] MEDS: Metoprolol Succinate 50 mg XL Tab PO SCH (08:12)
[2017-05-14] MEDS ORDERED: Sod Polystyrene Sulf 15 gm/60 ml Susp PO ONE (09:30)
--- NOTE | 2017-05-14 11:04 | PCM.PYCHPN ---
Psychiatric Progress Note - Psychiatric Progress Note Patient seen today, length of contact: Patient evaluated, case discussed with team, chart reviewed, 35 min Patient Chief Complaint: "I'm regular." Problems Identified/Issues Discussed: No new events overnight. Patient continues to report feeling depressed w/ constricted affect. He denies current AH. No adverse effects to medications noted. NO SI/HI. Medication Change: No Medical Record Reviewed: Yes Consults ordered or reviewed: Medicine consult appreciated Mental Status Examination - Cognitive Function Orientation: Person, Place, Situation Fund of Knowledge: [facility] Decription of patient's judgement and insights: Fair I/J - Mood Mood: Depressed - Affect Affect: Constricted - Formal Thought Process Formal Thought Process: No Impairment Psychotic Thoughts and Behaviors: Denies current AH/VH/paranoia/delusions - Suicidal Ideation Suicidal Ideation: No - Homicidal Ideation Homicidal Ideation: No Goal/Treatment Plan - Goal/Treatment Plan Need for Continued Stay: Remain at risks for inpatient hospitalization, Severe depression anxiety, Discharge may exacerbated symptoms, Severe functional impairment Progress Toward Problem(s) and Goals/Treatment Plan: Major Depressive Disorder w/ psychotic features; patient requires continued hospitalization for treatment and safety -Continue Remeron 30 mg PO HS -Continue Risperdal 3 mg PO HS -Individual and group therapy -Medicine consult appreciated -Disposition planning Estimated Date of D/C: 05/19/17
[2017-05-15] MEDS: Lidocaine 5% Patch TD SCH (08:15)
[2017-05-15] MEDS: Sevelamer Carb 0.8 gm/Packet PO SCH ×2 (08:18→19:14)
[2017-05-15] MEDS: Insulin Regular 100 units/ml SC SCH ×4 (08:20→21:10)
[2017-05-15] MEDS: Metoprolol Succinate 50 mg XL Tab PO SCH (08:24)
[2017-05-15 09:05] LABS: CALCIUM 8.5 mg/dL (8.4-10.2); POTASSIUM 4.3 MMOL/L (3.6-5.0)
--- NOTE | 2017-05-15 09:36 | PCM.PYCHPN ---
Psychiatric Progress Note - Psychiatric Progress Note Patient seen today, length of contact: Patient evaluated, case discussed with team, chart reviewed, 35 min Patient Chief Complaint: "I'm regular." Problems Identified/Issues Discussed: No new events overnight. Patient is irritable, often complains about the food. He reports intermittent AH, but states that he does not want his medications to increased. Patient continues to report feeling depressed w/ constricted affect. At this time, it is unclear if patient is exaggerating symptoms in order to prolong his hospitalization as the patient is homeless. No adverse effects to medications noted. NO SI/HI. Medication Change: No Medical Record Reviewed: Yes Consults ordered or reviewed: Medicine consult appreciated Mental Status Examination - Cognitive Function Orientation: Person, Place, Situation, Time Memory: Intact Attention: WNL Concentration: WNL Association: WNL Fund of Knowledge: [facility] Decription of patient's judgement and insights: Fair I/J - Mood Mood: Depressed - Affect Affect: Constricted - Formal Thought Process Formal Thought Process: No Impairment Psychotic Thoughts and Behaviors: Denies current AH/VH/paranoia/delusions - Suicidal Ideation Suicidal Ideation: No - Homicidal Ideation Homicidal Ideation: No Goal/Treatment Plan - Goal/Treatment Plan Need for Continued Stay: Remain at risks for inpatient hospitalization, Severe depression anxiety, Discharge may exacerbated symptoms, Severe functional impairment Progress Toward Problem(s) and Goals/Treatment Plan: Major Depressive Disorder w/ psychotic features; patient requires continued hospitalization for treatment and safety -Continue Remeron 30 mg PO HS -Continue Risperdal 3 mg PO HS -Individual and group therapy -Medicine consult appreciated -Disposition planning Estimated Date of D/C: 05/19/17
--- NOTE | 2017-05-16 07:55 | PCM.PYCHPN ---
Psychiatric Progress Note - Psychiatric Progress Note Patient seen today, length of contact: Patient evaluated, case discussed with team, chart reviewed, 35 min Patient Chief Complaint: "I'm regular." Problems Identified/Issues Discussed: No new events. Patient reports that his mood is improving. He reports intermittent AH, but states that he does not want his medications to increased and is vague about the actual symptoms. At this time, it seems like the patient is exaggerating symptoms in order to prolong his hospitalization as the patient is homeless. No adverse effects to medications noted. NO SI/HI. Medication Change: No Medical Record Reviewed: Yes Consults ordered or reviewed: Medicine consult appreciated Mental Status Examination - Cognitive Function Orientation: Person, Place, Situation, Time Memory: Intact Attention: WNL Concentration: WNL Association: WNL Fund of Knowledge: [facility] Decription of patient's judgement and insights: Fair I/J - Mood Mood: Depressed - Affect Affect: Constricted - Formal Thought Process Formal Thought Process: No Impairment Psychotic Thoughts and Behaviors: Denies current AH/VH/paranoia/delusions - Suicidal Ideation Suicidal Ideation: No - Homicidal Ideation Homicidal Ideation: No Goal/Treatment Plan - Goal/Treatment Plan Need for Continued Stay: Remain at risks for inpatient hospitalization, Severe depression anxiety, Discharge may exacerbated symptoms, Severe functional impairment Progress Toward Problem(s) and Goals/Treatment Plan: Major Depressive Disorder w/ psychotic features; patient requires continued hospitalization for treatment and safety -Continue Remeron 30 mg PO HS -Continue Risperdal 3 mg PO HS -Individual and group therapy -Medicine consult appreciated -Disposition planning- will likely discharge on Friday w/ outpatient follow-up Estimated Date of D/C: 05/19/17
[2017-05-16] MEDS: Sevelamer Carb 0.8 gm/Packet PO SCH ×2 (08:41→17:00)
[2017-05-16] MEDS: Metoprolol Succinate 50 mg XL Tab PO SCH (08:43)
[2017-05-16] MEDS: Lidocaine 5% Patch TD SCH (08:47)
[2017-05-16] MEDS: Insulin Regular 100 units/ml SC SCH ×4 (08:48→21:09)
--- NOTE | 2017-05-16 12:59 | PCM.BM ---
Treatment Plan Problems - Problems identified on initial assessmt Hopelessness/Helplessness Date Initiated: 05/07/17 Time Initiated: 19:13 Assessment reference: HP NA Status: Active Treatment assets and liabiliti Patient Assests: negotiates basic needs Patient Liabilities: live alone, financial problems, poor support system, dietary restrictions, medical problems, imparied memory, language/speech - Milieu Protocol Maintain good personal hygiene: daily Encourage regular showers, daily Remind patient to perform daily oral care, daily Assist patient to perform ADL's Maintain personal safety: every shift Educate patient to report safety concerns to staff, every shift Monitor environment for contraband/sharps Medication safety: Monitor for expected outcome, potential side effects: every shift, Assess barriers to learning: every shift, Assess readiness for medication education: every shift Milieu Narrative: Major Depressive Disorder w/ psychotic features; patient requires continued hospitalization for treatment and safety -Continue Remeron 30 mg PO HS -Continue Risperdal 3 mg PO HS -Individual and group therapy -Medicine consult appreciated -Disposition planning- will likely discharge on Friday w/ outpatient follow-up Family Contact Family involvement: Jesus/SO not involved Family contact: Patient declines to allow family contact at present Family contact name: Pt reported poor social support - Goals for Treatment Patient goals for treatment: Pt reported that he would like to reduce his depressive symptoms. Pt complained of chronic homelessness. Discharge/Continuing Care - Education Needs Education Needs: Patient Medication, Patient Diagnosis/Disease Process, Patient Coping Skills, Patient Placement options, Patient Community resources, Patient Activities of Daily Living, Patient Nutrition, Patient Uses of Medical Equipment , Patient Health Practices/Safety, Patient Personal Hygiene/Grooming, Patient Aftercare Safety Plan - Discharge Discharge Criteria: Free of Suicidal thoughts, Normal sleep pattern, Ability to care for self, Reduction of target symptoms Discharge to:: [facility] - Additional Comments 05/09/17 13:16 Pt did not offer any complaints at this time and did not have any questions for team. Pt is awaiting results from medical team. - Treatment Team Participation Patient/Family/SO Statement: Major Depressive Disorder w/ psychotic features; patient requires continued hospitalization for treatment and safety -Continue Remeron 30 mg PO HS -Continue Risperdal 3 mg PO HS -Individual and group therapy -Medicine consult appreciated -Disposition planning- will likely discharge on Friday w/ outpatient follow-up Discussed with Family/SO: No (No family involvement) Was Patient/Family/SO present at Treatment Team Meeting: Yes Treatment Plan Review - Problem Hopelessness/Helplessness Date Initiated: 05/16/17 Time Initiated: 19:13 Progress toward outcomes: improved - Discharge / Continuing Care Discharge to:: [facility]: Outpatient therapy Health Needs: Medications/Rx
--- NOTE | 2017-05-16 15:14 | CP.PCM.PN ---
Subjective - Date & Time of Evaluation Date of Evaluation: 05/16/17 Time of Evaluation: 15:12 - Subjective Subjective: Patient appears to be stable in the psych unit And doing better. Review the lab Serum creatinine and kidney function stable consistent with stage IV CK D. Total protein in the urine 7.2 g consistent with nephrotic syndrome differential diagnosis whether it is related to multiple myeloma or most likely diabetes mellitus.. Serum phosphorus 6.7 patient on Renvela. PTH normal Still waiting for hematology bone marrow report to decide whether he has multiple myeloma or not. Diabetes mellitus patient on medication as per primary team. Hypertension under control. Objective - Vital Signs/Intake and Output Vital Signs (last 24 hours): Temp Pulse Resp BP Pulse Ox 97.5 F L 65 19 122/78 96 05/16/17 05:55 05/16/17 13:08 05/16/17 05:55 05/16/17 13:08 05/10/17 15:54 - Medications Medications: Current Medications Acetaminophen (Tylenol 325mg Tab) 650 mg PO Q4 PRN PRN Reason: Pain, moderate (4-7) Last Admin: 05/13/17 08:14 Dose: 650 mg Al Hydrox/Mg Hydrox/Simethicone (Maalox Plus 30 Ml) 30 ml PO Q4 PRN PRN Reason: Dyspepsia Amlodipine Besylate (Norvasc) 10 mg PO DAILY [facility] Last Admin: 05/16/17 08:42 Dose: 10 mg Aspirin (Ecotrin) 81 mg PO DAILY [facility] Last Admin: 05/16/17 08:42 Dose: 81 mg Atorvastatin Calcium (Lipitor) 40 mg PO DAILY [facility] Last Admin: 05/16/17 08:44 Dose: 40 mg Bismuth Subsalicylate (Pepto-Bismol) 524 mg PO Q4 PRN PRN Reason: Diarrhea Clonidine HCl (Catapres) 0.2 mg PO BID [facility] Last Admin: 05/16/17 08:41 Dose: 0.2 mg Dextrose (Dextrose 50% Inj) 0 ml IV STAT PRN; Protocol PRN Reason: Hypoglycemia Protocol Dextrose (Glutose 15) 0 gm PO ONCE PRN; Protocol PRN Reason: Hypoglycemia Protocol Furosemide (Lasix) 40 mg PO DAILY [facility] Last Admin: 05/16/17 09:00 Dose: 40 mg Gabapentin (Neurontin) 100 mg PO BID [facility] Last Admin: 05/16/17 08:43 Dose: 100 mg Glipizide (Glucotrol) 15 mg PO ACB [facility] Last Admin: 05/16/17 08:50 Dose: 15 mg Glipizide (Glucotrol) 10 mg PO ACD [facility] Last Admin: 05/15/17 19:19 Dose: 10 mg Glucagon (Glucagen Diagnostic Kit) 0 mg IM STAT PRN; Protocol PRN Reason: Hypoglycemia Protocol Hydralazine HCl (Apresoline) 100 mg PO TID [facility] Last Admin: 05/16/17 13:08 Dose: 100 mg Insulin Human Regular (Humulin R) 0 units SC ACHS [facility]OM[facility] PRN Reason: Protocol Last Admin: 05/16/17 13:06 Dose: Not Given Lidocaine (Lidoderm) 1 ea TD DAILY [facility] Last Admin: 05/16/17 08:47 Dose: Not Given Lorazepam (Ativan) 0.5 mg PO HS PRN PRN Reason: Insomnia Stop: 05/21/17 18:09 Lorazepam (Ativan) 0.5 mg PO Q6 PRN PRN Reason: Anixety/Agitation Stop: 05/21/17 18:09 Magnesium Hydroxide (Milk Of Magnesia) 30 ml PO HS PRN PRN Reason: Constipation Metoprolol Succinate (Toprol Xl) 50 mg PO DAILY [facility] Last Admin: 05/16/17 08:43 Dose: 50 mg Mirtazapine (Remeron) 30 mg PO HS [facility] Last Admin: 05/15/17 21:10 Dose: 30 mg Pentoxifylline (Pentoxil) 400 mg PO DAILY [facility] Last Admin: 05/16/17 08:42 Dose: 400 mg Risperidone (Risperdal Tab) 3 mg PO HS [facility] Last Admin: 05/15/17 21:10 Dose: 3 mg Sevelamer Carbonate (Renvela) 0.8 gm PO BID [facility] Last Admin: 05/16/17 08:41 Dose: 0.8 gm - Labs Labs: 05/14/17 06:30 05/15/17 08:27 PT 11.9 Seconds (9.8-13.1) 05/09/17 06:40 INR 1.1 (0.9-1.2) 05/09/17 06:40 APTT 34.6 Seconds (25.6-37.1) 05/09/17 06:40 Assessment and Plan (1) Acute kidney injury superimposed on chronic kidney disease Status: Acute (2) Hyperkalemia Status: Acute
--- NOTE | 2017-05-16 16:06 | CP.PCM.PN ---
Subjective - Date & Time of Evaluation Date of Evaluation: 05/16/17 Time of Evaluation: 15:30 - Subjective Subjective: Pt. seen and examined at bedside sleeping. Pt. wakes up spontaneously. Pt. with no complaints. Pt. reports no overnight events. Pt. denies any headache, shortness of breath, dyspnea, chst pain, nausea, vomiting, diarrhea, constipation, or pain. Objective - Vital Signs/Intake and Output Vital Signs (last 24 hours): Temp Pulse Resp BP Pulse Ox 97.8 F 67 20 147/57 L 96 05/16/17 15:41 05/16/17 15:41 05/16/17 15:41 05/16/17 15:41 05/10/17 15:54 - Medications Medications: Current Medications Acetaminophen (Tylenol 325mg Tab) 650 mg PO Q4 PRN PRN Reason: Pain, moderate (4-7) Last Admin: 05/13/17 08:14 Dose: 650 mg Al Hydrox/Mg Hydrox/Simethicone (Maalox Plus 30 Ml) 30 ml PO Q4 PRN PRN Reason: Dyspepsia Amlodipine Besylate (Norvasc) 10 mg PO DAILY [facility] Last Admin: 05/16/17 08:42 Dose: 10 mg Aspirin (Ecotrin) 81 mg PO DAILY [facility] Last Admin: 05/16/17 08:42 Dose: 81 mg Atorvastatin Calcium (Lipitor) 40 mg PO DAILY [facility] Last Admin: 05/16/17 08:44 Dose: 40 mg Bismuth Subsalicylate (Pepto-Bismol) 524 mg PO Q4 PRN PRN Reason: Diarrhea Clonidine HCl (Catapres) 0.2 mg PO BID [facility] Last Admin: 05/16/17 08:41 Dose: 0.2 mg Dextrose (Dextrose 50% Inj) 0 ml IV STAT PRN; Protocol PRN Reason: Hypoglycemia Protocol Dextrose (Glutose 15) 0 gm PO ONCE PRN; Protocol PRN Reason: Hypoglycemia Protocol Furosemide (Lasix) 40 mg PO DAILY [facility] Last Admin: 05/16/17 09:00 Dose: 40 mg Gabapentin (Neurontin) 100 mg PO BID [facility] Last Admin: 05/16/17 08:43 Dose: 100 mg Glipizide (Glucotrol) 15 mg PO ACB [facility] Last Admin: 05/16/17 08:50 Dose: 15 mg Glipizide (Glucotrol) 10 mg PO ACD [facility] Last Admin: 05/15/17 19:19 Dose: 10 mg Glucagon (Glucagen Diagnostic Kit) 0 mg IM STAT PRN; Protocol PRN Reason: Hypoglycemia Protocol Hydralazine HCl (Apresoline) 100 mg PO TID [facility] Last Admin: 05/16/17 13:08 Dose: 100 mg Insulin Human Regular (Humulin R) 0 units SC ACHS THOMAS PRN Reason: Protocol Last Admin: 05/16/17 13:06 Dose: Not Given Lidocaine (Lidoderm) 1 ea TD DAILY [facility] Last Admin: 05/16/17 08:47 Dose: Not Given Lorazepam (Ativan) 0.5 mg PO HS PRN PRN Reason: Insomnia Stop: 05/21/17 18:09 Lorazepam (Ativan) 0.5 mg PO Q6 PRN PRN Reason: Anixety/Agitation Stop: 05/21/17 18:09 Magnesium Hydroxide (Milk Of Magnesia) 30 ml PO HS PRN PRN Reason: Constipation Metoprolol Succinate (Toprol Xl) 50 mg PO DAILY [facility] Last Admin: 05/16/17 08:43 Dose: 50 mg Mirtazapine (Remeron) 30 mg PO HS [facility] Last Admin: 05/15/17 21:10 Dose: 30 mg Pentoxifylline (Pentoxil) 400 mg PO DAILY [facility] Last Admin: 05/16/17 08:42 Dose: 400 mg Risperidone (Risperdal Tab) 3 mg PO HS [facility] Last Admin: 05/15/17 21:10 Dose: 3 mg Sevelamer Carbonate (Renvela) 0.8 gm PO BID [facility] Last Admin: 05/16/17 08:41 Dose: 0.8 gm - Labs Labs: 05/14/17 06:30 05/15/17 08:27 PT 11.9 Seconds (9.8-13.1) 05/09/17 06:40 INR 1.1 (0.9-1.2) 05/09/17 06:40 APTT 34.6 Seconds (25.6-37.1) 05/09/17 06:40 - Constitutional Appears: Non-toxic, No Acute Distress - Eye Exam Eye Exam: Normal appearance. absent: Scleral icterus - ENT Exam ENT Exam: Mucous Membranes Moist - Neck Exam Neck Exam: Full ROM - Respiratory Exam Respiratory Exam: Rhonchi (Left lower lung field ), NORMAL BREATHING PATTERN - Cardiovascular Exam Cardiovascular Exam: REGULAR RHYTHM, +S1, +S2 - GI/Abdominal Exam GI & Abdominal Exam: Soft. absent: Tenderness - Extremities Exam Extremities Exam: Normal Inspection - Neurological Exam Neurological Exam: Alert, Awake - Psychiatric Exam Psychiatric exam: Flat Affect Assessment and Plan - Assessment and Plan (Free Text) Assessment: 66 y/o M with PMH including Systolic CHF, HTN, CKD, NIDDM2 and bipolar disorder is admitted to psychiatric unit for Depression Anemia- Chronic -EPO WNL -Bone marrow biopsy results- No malignancy Hypocellular bone marrow shows trilineage hematopoiesis with scattered plasma cells. No evidence of overth or advanced myelodysplasia, acute leukemia, metastatic neoplasm or lymphoma. -Heme/Onc consult by Dr Iraheta appreciated Hypertension- well controlled -Amlodipine 10mg -Hydralazine 100mg TID -Clonidine .2mg BID CKD stage IV- chronic -Last bun/cr 77/2.7 -GFR of 24 -Nephro consulted. Recs appreciated -Continue Sevelamer BID Pleural Effusion- Resolving -c/w Lasix 40mg po daily -currently asymptomatic -Will consider repeat CXR until resolution Pulmonary nodules and questionable cavitary lesion on CT/CXR -Unlikely malignancy -Pulmonology sign off. F/U as outpatient -Needs latent TB treatment as outpatient Chronic systolic CHF -Controlled -Last Echo EF 45-50% on 07/2016 -Lasix 40 mg daily Non insulin dependent Type II DM controlled -C/W Glipizide 15 mg breakfast and 10 mg dinner -ACHS -SSI DVT Prophylaxis -Ambulation encouraged Depression -Defer to Psych for mangement
[2017-05-17] MEDS: Sevelamer Carb 0.8 gm/Packet PO SCH ×2 (08:45→16:17)
[2017-05-17] MEDS: Metoprolol Succinate 50 mg XL Tab PO SCH (08:46)
[2017-05-17] MEDS: Insulin Regular 100 units/ml SC SCH ×5 (08:49→21:16)
[2017-05-17] MEDS: Lidocaine 5% Patch TD SCH (08:49)
--- NOTE | 2017-05-17 13:01 | PCM.PYCHPN ---
Psychiatric Progress Note - Psychiatric Progress Note Patient seen today, length of contact: Patient evaluated, case discussed with team, chart reviewed, 35 min Patient Chief Complaint: I am resting Problems Identified/Issues Discussed: Patient reports that his mood is improving. He reports intermittent AH, but denied command hallucinations . No adverse effects to medications noted. NO SI/HI. DSM 5 Symptoms Update: major depression with psychotic features Medication Change: No Medical Record Reviewed: Yes Mental Status Examination - Cognitive Function Orientation: Person, Place, Situation, Time Memory: Intact Attention: WNL Concentration: WNL Association: WNL Fund of Knowledge: WNL - Mood Mood: Depressed - Affect Affect: Constricted - Formal Thought Process Formal Thought Process: No Impairment - Suicidal Ideation Suicidal Ideation: No - Homicidal Ideation Homicidal Ideation: No Goal/Treatment Plan - Goal/Treatment Plan Need for Continued Stay: Remain at risks for inpatient hospitalization, Severe depression anxiety, Discharge may exacerbated symptoms, Severe functional impairment Progress Toward Problem(s) and Goals/Treatment Plan: continue current medications group and supportive therapy Estimated Date of D/C: 05/19/17
[2017-05-17 18:23] LABS: BASO # 0.1 K/uL (0.0-0.2); BASO % 1.1 % (0.0-2.0); EOS # 0.1 K/uL (0.0-0.7); EOS % 2.4 % (0.0-4.0); HEMATOCRIT 25.2 % (35.0-51.0); LYMPH # 1.1 K/uL (1.0-4.3); LYMPH % 18.7 % (20.0-40.0); MEAN CELL VOLUME 96.2 fl (80.0-94.0); MEAN CORPUSCULAR HEMOGLOBIN 31.3 pg (27.0-31.0); MEAN CORPUSCULAR HGB CONC 32.5 g/dL (33.0-37.0); MEAN PLATELET VOLUME 10.3 fl (7.2-11.7); MONO # 0.5 K/uL (0.0-0.8); MONO % 8.5 % (0.0-10.0); NEUT # 4.3 K/uL (1.8-7.0); NEUT % 69.3 % (50.0-75.0); RED CELL DISTRIBUTION WIDTH 14.8 % (11.5-14.5); WHITE BLOOD COUNT 6.2 K/uL (4.8-10.8)
[2017-05-17 18:51] LABS: ALKALINE PHOSPHATASE 185 U/L (38-126); ALT/SGPT 68 U/L (21-72); AST/SGOT 32 U/L (17-59); BILIRUBIN,TOTAL < 0.1 mg/dl (0.2-1.3); BLOOD UREA NITROGEN 73 mg/dl (9-20); CALCIUM 7.7 mg/dL (8.4-10.2); CARBON DIOXIDE 19 mmol/L (22-30); CHLORIDE 115 mmol/L (98-107); GFR AFRICAN-AMERICAN 33; GLUCOSE,RANDOM 242 mg/dL (75-110); SODIUM 141 mmol/l (132-148); TOTAL PROTEIN 5.4 G/DL (6.3-8.2)
--- NOTE | 2017-05-17 19:13 | CP.PCM.PCO ---
Additional Comments - Additional Comments Additional Comments: Patient complained of chest pain w/ respiration and reproducible w/ palpation. Vitals stable. Patient reports not ambulating except for using bathroom. Patient given O2 NC 2L, sent for EKG, CXR PA/Lat, and started onlovenox 30 mg SC daily (dosed due to CrCl of 24, CBC and CMP collected)
[2017-05-17] MEDS: Enoxaparin 30 mg Syringe SC SCH (20:50)
--- NOTE | 2017-05-18 08:48 | RAD ---
HISTORY: pleuritic chest pain COMPARISON: Chest radiographs 05/05/2017. TECHNIQUE: Chest PA and lateral FINDINGS: LUNGS: Underlying airspace disease at the mid to inferior left lung zone is not excluded. Mildly increased limited airspace disease seen in the right infrahilar space. PLEURA: Large left pleural effusion is now identified increase from a [id number] volume previously shown. Trace right pleural effusions not excluded. No pneumothorax bilaterally. CARDIOVASCULAR: Cardiomegaly persists with mild pulmonary venous congestion also identified, partially increased in the interval. OSSEOUS STRUCTURES: No significant abnormalities. VISUALIZED UPPER ABDOMEN: Normal. OTHER FINDINGS: None. IMPRESSION: CHF borderline increase in the interval. Marked increase in left pleural effusion now all opacifying the slightly more the 5th distal left thoracic cavity. Underlying infiltrates are not excluded at the mid to inferior left lung zones with limited right infrahilar/medial basilar infiltrate slightly increased in the interval as well. Trace right pleural effusion in question.
[2017-05-18] MEDS: Lidocaine 5% Patch TD SCH (09:15)
[2017-05-18] MEDS: Sevelamer Carb 0.8 gm/Packet PO SCH ×2 (09:18→16:24)
[2017-05-18] MEDS: Insulin Regular 100 units/ml SC SCH ×4 (09:25→21:10)
[2017-05-18] MEDS: Enoxaparin 30 mg Syringe SC SCH (09:26)
[2017-05-18] MEDS: Metoprolol Succinate 50 mg XL Tab PO SCH (09:28)
--- NOTE | 2017-05-18 14:32 | PCM.PYCHPN ---
Psychiatric Progress Note - Psychiatric Progress Note Patient seen today, length of contact: Patient evaluated, case discussed with team, chart reviewed, 35 min Patient Chief Complaint: I am feeling ok Problems Identified/Issues Discussed: Patient reports that his mood is improving.fine He reports intermittent AH, but denied command hallucinations . No adverse effects to medications reportedd. NO SI/HI. Medication Change: No Medical Record Reviewed: Yes Mental Status Examination - Cognitive Function Orientation: Person, Place, Situation, Time Memory: Intact Attention: WNL Concentration: WNL Association: WNL Fund of Knowledge: WNL - Mood Mood: Depressed - Affect Affect: Constricted - Formal Thought Process Formal Thought Process: No Impairment - Suicidal Ideation Suicidal Ideation: No - Homicidal Ideation Homicidal Ideation: No Goal/Treatment Plan - Goal/Treatment Plan Need for Continued Stay: Remain at risks for inpatient hospitalization, Severe depression anxiety, Discharge may exacerbated symptoms, Severe functional impairment Progress Toward Problem(s) and Goals/Treatment Plan: continue current medications group and supportive therapy Estimated Date of D/C: 05/19/17
[2017-05-18 14:57] VITALS: O2SAT 18
--- NOTE | 2017-05-18 22:53 | US ---
EXAM: Venous Doppler complete bilateral INDICATIONS: Evaluate for deep venous thrombosis. TECHNIQUE: Duplex venous evaluation of the both lower extremities was performed utilizing graded compression, color Doppler and spectral Doppler interrogation. COMPARISON: Bilateral lower extremity venous duplex 04/14/2017 FINDINGS: There is normal morphology, compressibility, Doppler flow, and augmentation of both common femoral, femoral, and popliteal veins. Visualized portions of the posterior tibial veins are unremarkable. Right popliteal fossa cyst measuring 2.9 x 1.2 x 2.1 cm noted. IMPRESSION: No evidence of deep venous thrombosis in the bilateral femoropopliteal systems. Right popliteal fossa cyst measuring 2.9 cm, decreased from prior exam where it measured 5.6 cm.
[2017-05-19 06:06] VITALS: RESP 19; TEMP 97.6
[2017-05-19 06:29] LABS: HEMATOCRIT 25.9 % (35.0-51.0); MEAN CELL VOLUME 95.7 fl (80.0-94.0); MEAN CORPUSCULAR HEMOGLOBIN 31.5 pg (27.0-31.0); MEAN CORPUSCULAR HGB CONC 32.9 g/dL (33.0-37.0); RED CELL DISTRIBUTION WIDTH 14.1 % (11.5-14.5); WHITE BLOOD COUNT 6.1 K/uL (4.8-10.8)
[2017-05-19 06:54] LABS: CALCIUM 8.3 mg/dL (8.4-10.2); POTASSIUM 4.2 MMOL/L (3.6-5.0)
[2017-05-19] MEDS: Insulin Regular 100 units/ml SC SCH ×2 (08:39→11:18)
[2017-05-19] MEDS: Enoxaparin 30 mg Syringe SC SCH (08:41)
[2017-05-19] MEDS: Sevelamer Carb 0.8 gm/Packet PO SCH (08:43)
[2017-05-19] MEDS ORDERED: Metoprolol Succinate 25 mg XL Tab PO SCH (09:00)
[2017-05-19] MEDS: Lidocaine 5% Patch TD SCH (11:16)
--- NOTE | 2017-05-19 11:47 | PCM.PYCHDC ---
Mental Status Examination - Mental Status Examination Orientation: Person, Place, Situation, Time Memory: Intact Mood: Neutral Affect: Broad Speech: Appropriate Attention: WNL Concentration: WNL Association: WNL Fund of Knowledge: WNL Formal Thought Process: No Impairment Description of patient's judgement and insight: Fair I/J Psychotic Thoughts and Behaviors: Denies current AH/VH/paranoia/delusions Suicidal Ideation: No Current Homicidal Ideation?: No Discharge Summary - Discharge Note Reason for Hospitalization: As per initial admission note: transfer from 6s after being admitted pleural effusion-with bone biopsy was performed 0n 6s, thorocentesis was performed on 6s. Pt was consulted by psych because depression ideations without any plan. Pt. was signed in voluntary, pt. refused heparin x2 (dvt prophylaxis). PT. has been noted to be moving about unit ie. ambulation in unit. Pt. has been agreeable receive insulin as well as other medications. staff report pt is irritable at times when assisted with adls. Pt. is eating and sleeps well. Pt. is being followed by family practice. Patient's Reaction to Hospitalization: pt signed in voluntarily to 3 History of Present Illness and Precipitating Events: was admitted to a general medical surgical unit for multiple co morbidities. pt admitted to suicidal ideations and was medically cleared for transfer to [facility]. Pt reported feeling depressed for a long time. Pt reported that prior to hospitalization he had thoughts and ideation of suicide, but did not have a plan. Pt reported I have nothing to live for. Pt reported several stressors contributing to his depression and SI. Pt reported becoming homeless after losing his job. Pt reported he was living in his [employer] work van but not in the past couple of months because hes constantly using the van for different jobs. Pt reported he has been staying in the streets. Pt reported suicide thoughts in the past [place] [address] [place]. Pt reported several psychostressors, such as lack of health insurance, financial struggle, housing issues (homeless), and lack of social and emotional support. Pt reported 3 prior psychiatric hospitalizations. Pt reported he was hospitalized in [place] in 1970 secondary to depression and in July and October 2015 at [facility] secondary to depression and SI. Pt reported being non- compliant with psychotropic since discharge in October 2015. Pt reported non- compliance with outpatient mental health services. Pt reported medical issues as HTN, anemia and diabetes. Pt reported 2 prior suicide attempts, once in [place] and once in 2016. Pt denied hx of aggressive and assaultive bxs. Pt denied hx of self-injurious bxs. Laboratory Data: Abnormal Lab Results 05/18/17 05/18/17 05/18/17 11:47 15:09 20:08 WBC RBC Hgb Hct MCV MCH MCHC RDW Plt Count Sodium Potassium Chloride Carbon Dioxide Anion Gap BUN Creatinine Est GFR ( Amer) Est GFR (Non-Af Amer) POC Glucose (mg/dL) 201 H 85 185 H Random Glucose Calcium 05/19/17 05/19/17 05/19/17 05:36 06:10 06:10 WBC 6.1 RBC 2.71 L Hgb 8.5 L Hct 25.9 L MCV 95.7 H MCH 31.5 H MCHC 32.9 L RDW 14.1 Plt Count 165 Sodium 144 Potassium 4.2 Chloride 116 H Carbon Dioxide 20 L Anion Gap 12 BUN 71 H Creatinine 2.5 H Est GFR ( Amer) 31 Est GFR (Non-Af Amer) 26 POC Glucose (mg/dL) 145 H Random Glucose 136 H Calcium 8.3 L 05/19/17 11:12 WBC RBC Hgb Hct MCV MCH MCHC RDW Plt Count Sodium Potassium Chloride Carbon Dioxide Anion Gap BUN Creatinine Est GFR ( Amer) Est GFR (Non-Af Amer) POC Glucose (mg/dL) 314 H Random Glucose Calcium Consultations:: List each consultation separately and include: 1. Reason for request. 2. Findings. 3. Follow-up Consultations: Medicine consult appreciated Summary of Hospital Course include:: 1. Description of specific treatment plan utilized for patients during their course of treatmen. 2. Summarize the time- course for resolution of acute symptoms and/or regressed behaviors. 3. Describe issues identified and worked on during hospitalization. 4. Describe medication utilized. 5. Describe medical problems identified and treated. 6. Reassessment of suicide risk Summary of Hospital Course: Patient was admitted to the geriatric unit. Individual and group therapy were provided. Patient was stabilized on Remeron 30 mg PO HS and Risperdal 3 mg PO HS. He no longer reports depression or hallucinations. Patient was likely trying to prolong his hospitalization for secondary gain of housing. He is psychiatrically stable for discharge at this time. - Diagnosis (1) Major depressive disorder with psychotic features Current Visit: Yes Status: Acute - Final Diagnosis (DSM 5) Condition upon Discharge: STABLE DSM 5: MDD w/ psychotic features Disposition: HOME/ ROUTINE Follow-up Treatment Plan: Major Depressive Disorder w/ psychotic features; patient is psychiatrically stable for discharge. -Continue Remeron 30 mg PO HS -Continue Risperdal 3 mg PO HS -Individual and group therapy -Medicine consult appreciated -Discharge w/ outpatient medical and psychiatric follow-up Prescriptions/Medication Reconciliation: amLODIPine [Norvasc] 10 mg PO DAILY #30 tab Aspirin [Ecotrin] 81 mg PO DAILY #30 tabec Atorvastatin [Lipitor] 40 mg PO DAILY #30 tab Calcium Acetate [Phoslo] 1,334 mg PO WM #180 capsule cloNIDine [Catapres] 1 tab PO BID 30 Days #60 tab Furosemide [Lasix] 80 mg PO DAILY #30 tab Gabapentin [Neurontin] 100 mg PO BID #60 cap GlipiZIDE [Glucotrol] 10 mg PO ACD #30 tab GlipiZIDE [Glucotrol] 15 mg PO ACB #90 tab hydrALAZINE [Apresoline] 100 mg PO TID #180 tab Lidocaine 5% [Lidoderm] 1 ea TD DAILY #30 patch Metoprolol Succinate [Toprol XL] 25 mg PO DAILY #30 tab Mirtazapine [Remeron] 30 mg PO HS #30 tab risperiDONE [RisperDAL Tab] 3 mg PO HS #30 tab traMADol [Ultram] 50 mg PO Q6 PRN #7 tab PRN Reason: Pain, Moderate (4-7) - Smoking Cessation Smoking Cessation Medication prescribed: No Reason for not providing: Not indicated - Antipsychotic Medications Pt discharged on 2 or more routine antipsychotic medications: No
[2017-05-19 12:19] VITALS: BP 118/62; PULSE 65
--- NOTE | 2017-05-19 12:33 | CARD ---
APPROVED REPORT EKG Measurement Heart [id number] <Conclusion> Sinus rhythm with 1st degree AV block Otherwise normal ECG
[2017-05-19] MEDS ORDERED: Calcium Acetate 667 MG Capsule PO SCH (18:30)
== END 2017-05-19 13:25 | disposition home or self-care (01) | DRG 430 ==
LOC: H.STEP 17:52
PROVIDERS: ADMIT Psychiatry & Neurology Psychiatry; ATTEND Psychiatry & Neurology Psychiatry
PROC: GZ51ZZZ Individual Psychotherapy, Behavioral (ICD-10-PCS; principal; 2017-05-07)
DX: F32.3 Major depressive disorder, single episode, severe with psychotic features (principal); N17.9 Acute kidney failure, unspecified; C90.00 Multiple myeloma not having achieved remission; F03.90 Unspecified dementia, unspecified severity, without behavioral disturbance, psychotic disturbance, mood disturbance, and anxiety; E11.22 Type 2 diabetes mellitus with diabetic chronic kidney disease; I13.0 Hypertensive heart and chronic kidney disease with heart failure and stage 1 through stage 4 chronic kidney disease, or unspecified chronic kidney disease; N04.9 Nephrotic syndrome with unspecified morphologic changes; I50.22 Chronic systolic (congestive) heart failure; E87.5 Hyperkalemia; N18.4 Chronic kidney disease, stage 4 (severe); R44.3 Hallucinations, unspecified; D64.9 Anemia, unspecified; F31.9 Bipolar disorder, unspecified; R45.851 Suicidal ideations; R76.11 Nonspecific reaction to tuberculin skin test without active tuberculosis; Z59.0 Homelessness; Z79.84 Long term (current) use of oral hypoglycemic drugs; Z79.899 Other long term (current) drug therapy; Z87.01 Personal history of pneumonia (recurrent); Z87.891 Personal history of nicotine dependence; Z91.19 Patient's noncompliance with other medical treatment and regimen; Z91.5 Personal history of self-harm; D47.2 Monoclonal gammopathy; R91.1 Solitary pulmonary nodule; R26.81 Unsteadiness on feet

== ENCOUNTER 2017-05-19 13:42 | Emergency (ER) | payer SELFPAY ==
[2017-05-19 13:53] VITALS: RESP 18; TEMP 97
--- NOTE | 2017-05-19 14:03 | ED PDOC ---
HPI: SOB/CHF/COPD Time Seen by Provider: 05/19/17 13:46 Chief Complaint (Nursing): Shortness Of Breath History Per: Patient Onset/Duration Of Symptoms: Days (2) Current Symptoms Are (Timing): Still Present Exacerbating Factor(s): Exertion Severity: Moderate Associated Symptoms: denies: Fever, Productive Cough Additional Complaint(s): SOB assoc with right sided chest pain and nonproductive cough. Denies fever. Past Medical History Vital Signs: Last Vital Signs Temp 97 F L 05/19/17 13:46 Pulse 68 05/19/17 14:32 Resp 18 05/19/17 14:32 BP 112/62 05/19/17 14:32 Pulse Ox 96 05/19/17 14:32 - Medical History PMH: Anemia, Anxiety, Bipolar Disorder, CHF, Depression, Diabetes (type II), HTN , Peripheral Edema, Pneumonia, Chronic Kidney Disease, Chronic Pain (b/l leg pain) Denies: Arthritis, COPD, Dementia, HIV, Hypercholesterolemia, Hypothyroidism , Rheumatoid Arthritis - Family History Family History: States: Unknown Family Hx - Home Medications Home Medications: Ambulatory Orders Medication Instructions Recorded Aspirin [Ecotrin] 81 mg PO DAILY #30 tabec 05/19/17 Atorvastatin [Lipitor] 40 mg PO DAILY #30 tab 05/19/17 Calcium Acetate [Phoslo] 1,334 mg PO WM #180 capsule 05/19/17 Furosemide [Lasix] 80 mg PO DAILY #30 tab 05/19/17 Gabapentin [Neurontin] 100 mg PO BID #60 cap 05/19/17 GlipiZIDE [Glucotrol] 10 mg PO ACD #30 tab 05/19/17 GlipiZIDE [Glucotrol] 15 mg PO ACB #90 tab 05/19/17 Lidocaine 5% [Lidoderm] 1 ea TD DAILY #30 patch 05/19/17 Metoprolol Succinate [Toprol XL] 25 mg PO DAILY #30 tab 05/19/17 Mirtazapine [Remeron] 30 mg PO HS #30 tab 05/19/17 amLODIPine [Norvasc] 10 mg PO DAILY #30 tab 05/19/17 cloNIDine [Catapres] 1 tab PO BID 30 Days #60 tab 05/19/17 hydrALAZINE [Apresoline] 100 mg PO TID #180 tab 05/19/17 risperiDONE [RisperDAL Tab] 3 mg PO HS #30 tab 05/19/17 traMADol [Ultram] 50 mg PO Q6 PRN #7 tab 05/19/17 - Allergies Allergies/Adverse Reactions: Allergies Allergy/AdvReac Type Severity Reaction Status Date / Time No Known Allergies Allergy Verified 04/23/17 19:06 Review of Systems ROS Statement: Except As Marked, All Systems Reviewed And Found Negative Cardiovascular: Positive for: Chest Pain Respiratory: Positive for: Shortness of Breath Physical Exam - Reviewed Nursing Documentation Reviewed: Yes Vital Signs Reviewed: Yes - Physical Exam Appears: Positive for: Non-toxic, No Acute Distress Head Exam: Positive for: ATRAUMATIC, NORMAL INSPECTION, NORMOCEPHALIC Skin: Positive for: Normal Color, Warm, DRY Eye Exam: Positive for: EOMI, Normal appearance, PERRL ENT: Positive for: Normal ENT Inspection Neck: Positive for: Normal, Painless ROM Cardiovascular/Chest: Positive for: Regular Rate, Rhythm Respiratory: Positive for: Decreased Breath Sounds (Right side no wheezing). Negative for: Respiratory Distress Gastrointestinal/Abdominal: Positive for: Normal Exam, Bowel Sounds, Soft Back: Positive for: Normal Inspection Extremity: Positive for: Normal ROM Neurologic/Psych: Positive for: Alert, Oriented - Laboratory Results Result Diagrams: 05/19/17 14:19 05/19/17 14:19 - ECG O2 Sat by Pulse Oximetry: 94 Medical Decision Making Medical Decision Making: Evaluated bt FP resident, will see in [facility] tomorrow Disposition - Clinical Impression Clinical Impression: Anemia due to chronic kidney disease, CHF (congestive heart failure) - Patient ED Disposition Is Patient to be Admitted: No Counseled Patient/Family Regarding: Studies Performed, Diagnosis, Need For Followup - Disposition Referrals: [facility] [Outside] Disposition: Routine/Home Disposition Time: 15:24 Condition: FAIR Instructions: Heart Failure (ED) Forms: [employer] (Macedonian) Print Language: YORUBA
[2017-05-19 14:33] LABS: BASO # 0.1 K/uL (0.0-0.2); BASO % 0.8 % (0.0-2.0); EOS # 0.1 K/uL (0.0-0.7); EOS % 0.8 % (0.0-4.0); LYMPH # 0.7 K/uL (1.0-4.3); LYMPH % 10.1 % (20.0-40.0); MEAN CELL VOLUME 95.4 fl (80.0-94.0); MEAN CORPUSCULAR HEMOGLOBIN 32.1 pg (27.0-31.0); MEAN CORPUSCULAR HGB CONC 33.7 g/dL (33.0-37.0); MEAN PLATELET VOLUME 10.4 fl (7.2-11.7); MONO # 0.5 K/uL (0.0-0.8); MONO % 6.9 % (0.0-10.0); NEUT # 5.8 K/uL (1.8-7.0); NEUT % 81.4 % (50.0-75.0); RED CELL DISTRIBUTION WIDTH 14.3 % (11.5-14.5); WHITE BLOOD COUNT 7.2 K/uL (4.8-10.8)
--- NOTE | 2017-05-19 14:39 | RAD ---
HISTORY: cough COMPARISON: May 17, 2017 FINDINGS: LUNGS: Stable consolidative changes likely compressive atelectasis left lower lobe and lingula. Stable right lower lobe infiltrate PLEURA: Stable large left pleural effusion. CARDIOVASCULAR: Normal. OSSEOUS STRUCTURES: No significant abnormalities. VISUALIZED UPPER ABDOMEN: Normal. OTHER FINDINGS: None. IMPRESSION: No significant interval change compared to the prior examination(s).
[2017-05-19 14:48] LABS: ALB/GLOB RATIO 1.1 (1.0-2.1); ALKALINE PHOSPHATASE 201 U/L (38-126); ALT/SGPT 64 U/L (21-72); AST/SGOT 25 U/L (17-59); BILIRUBIN,TOTAL < 0.1 mg/dl (0.2-1.3); BLOOD UREA NITROGEN 70 mg/dl (9-20); CALCIUM 8.3 mg/dL (8.4-10.2); CARBON DIOXIDE 19 mmol/L (22-30); CHLORIDE 113 mmol/L (98-107); GFR AFRICAN-AMERICAN 28; GLUCOSE,RANDOM 184 mg/dL (75-110); POTASSIUM 4.4 MMOL/L (3.6-5.0); SODIUM 141 mmol/l (132-148); TOTAL PROTEIN 6.1 G/DL (6.3-8.2)
[2017-05-19 16:03] VITALS: BP 130/78; PULSE 78; O2SAT 98
--- NOTE | 2017-05-20 08:28 | CARD ---
APPROVED REPORT EKG Measurement Heart [id number] <Conclusion> Sinus rhythm with 1st degree AV block Otherwise normal ECG
== END 2017-05-19 16:04 | disposition home or self-care (01) ==
LOC: H.ER 13:42
DX: D63.1 Anemia in chronic kidney disease (principal); I50.9 Heart failure, unspecified; E11.22 Type 2 diabetes mellitus with diabetic chronic kidney disease; F31.9 Bipolar disorder, unspecified; F41.9 Anxiety disorder, unspecified; G89.29 Other chronic pain; J44.9 Chronic obstructive pulmonary disease, unspecified; Z79.82 Long term (current) use of aspirin

== ENCOUNTER 2017-05-21 16:00 | Emergency (ER) | payer SELFPAY ==
[2017-05-21 16:06] VITALS: PULSE 90; RESP 16; TEMP 97.7; O2SAT 96
[2017-05-21 16:09] VITALS: BP 169/80
--- NOTE | 2017-05-21 17:36 | ED PDOC ---
HPI: Back Time Seen by Provider: 05/21/17 16:09 Chief Complaint (Nursing): Alcohol Ingestion Chief Complaint (Provider): back pain History Per: Patient, EMS History/Exam Limitations: intoxication Onset/Duration Of Symptoms: Mins (prior to arrival) Current Symptoms Are (Timing): Still Present Additional Complaint(s): 66 year old male who presents to the emergency department via EMS for an evaluation of intoxication prior to arrival. Patient denied drinking alcohol but reported lower back and painful urination, possibly related to kidney stones. PMD: none provided Past Medical History Reviewed: Historical Data, Nursing Documentation, Vital Signs Vital Signs: Last Vital Signs Temp 97.7 F 05/21/17 16:03 Pulse 90 05/21/17 16:03 Resp 16 05/21/17 16:03 BP 169/80 H 05/21/17 16:03 Pulse Ox 96 05/21/17 16:03 - Medical History PMH: Anemia, Anxiety, Bipolar Disorder, CHF, Depression, Diabetes (type II), HTN , Peripheral Edema, Pneumonia, Chronic Kidney Disease, Chronic Pain (b/l leg pain) Denies: Arthritis, COPD, Dementia, HIV, Hypercholesterolemia, Hypothyroidism , Rheumatoid Arthritis - Surgical History Surgical History: No Surg Hx - Family History Family History: States: Unknown Family Hx - Social History Current smoker - smoking cessation education provided: Yes Alcohol: None Drugs: Denies - Home Medications Home Medications: Ambulatory Orders Medication Instructions Recorded Aspirin [Ecotrin] 81 mg PO DAILY #30 tabec 05/19/17 Atorvastatin [Lipitor] 40 mg PO DAILY #30 tab 05/19/17 Calcium Acetate [Phoslo] 1,334 mg PO WM #180 capsule 05/19/17 Furosemide [Lasix] 80 mg PO DAILY #30 tab 05/19/17 Gabapentin [Neurontin] 100 mg PO BID #60 cap 05/19/17 GlipiZIDE [Glucotrol] 10 mg PO ACD #30 tab 05/19/17 GlipiZIDE [Glucotrol] 15 mg PO ACB #90 tab 05/19/17 Lidocaine 5% [Lidoderm] 1 ea TD DAILY #30 patch 05/19/17 Metoprolol Succinate [Toprol XL] 25 mg PO DAILY #30 tab 05/19/17 Mirtazapine [Remeron] 30 mg PO HS #30 tab 05/19/17 amLODIPine [Norvasc] 10 mg PO DAILY #30 tab 05/19/17 cloNIDine [Catapres] 1 tab PO BID 30 Days #60 tab 05/19/17 hydrALAZINE [Apresoline] 100 mg PO TID #180 tab 05/19/17 risperiDONE [RisperDAL Tab] 3 mg PO HS #30 tab 05/19/17 traMADol [Ultram] 50 mg PO Q6 PRN #7 tab 05/19/17 Ciprofloxacin [Cipro] 500 mg PO BID #6 tab 05/21/17 Ibuprofen [Motrin] 600 mg PO Q6 #20 tab 05/21/17 - Allergies Allergies/Adverse Reactions: Allergies Allergy/AdvReac Type Severity Reaction Status Date / Time No Known Allergies Allergy Verified 05/21/17 16:02 Review of Systems ROS Statement: Except As Marked, All Systems Reviewed And Found Negative Genitourinary Male: Positive for: Dysuria Musculoskeletal: Positive for: Back Pain (lower) Physical Exam - Reviewed Nursing Documentation Reviewed: Yes Vital Signs Reviewed: Yes - Physical Exam Appears: Positive for: Well, Non-toxic, No Acute Distress Head Exam: Positive for: ATRAUMATIC, NORMAL INSPECTION, NORMOCEPHALIC Cardiovascular/Chest: Positive for: Regular Rate, Rhythm, Chest Non Tender Respiratory: Positive for: Normal Breath Sounds. Negative for: Decreased Breath Sounds, Respiratory Distress Back: Positive for: Normal Inspection. Negative for: L CVA Tenderness, R CVA Tenderness Extremity: Positive for: Normal ROM Neurologic/Psych: Positive for: Alert (x3), Mood/Affect (intoxicated) - ECG O2 Sat by Pulse Oximetry: 96 (RA) Pulse Ox Interpretation: Normal Medical Decision Making Medical Decision Making: Initial Impression: Back pain; ETOH intoxication Initial Plan: * Urine dip Scribe Attestation: Documented by Bettina Lopez, acting as a scribe for Marichuy A. Petronella PA- C. Provider Scribe Attestation: All medical record entries made by the Scribe were at my direction and personally dictated by me. I have reviewed the chart and agree that the record accurately reflects my personal performance of the history, physical exam, medical decision making, and the department course for this patient. I have also personally directed, reviewed, and agree with the discharge instructions and disposition. Disposition - Clinical Impression Clinical Impression: Lower extremity edema, Leg pain - Patient ED Disposition Is Patient to be Admitted: No - Disposition Disposition: Routine/Home Disposition Time: 17:58 Condition: STABLE Prescriptions: Ciprofloxacin [Cipro] 500 mg PO BID #6 tab Ibuprofen [Motrin] 600 mg PO Q6 #20 tab Instructions: Leg Pain (ED) Forms: [facility] (Malaysian) Print Language: CANADIAN - POA Present On Arrival: None
== END 2017-05-21 17:57 | disposition home or self-care (01) ==
LOC: H.ER 16:00
DX: R60.0 Localized edema (principal); E11.22 Type 2 diabetes mellitus with diabetic chronic kidney disease; F10.10 Alcohol abuse, uncomplicated; F31.9 Bipolar disorder, unspecified; F41.9 Anxiety disorder, unspecified; G89.29 Other chronic pain; I13.0 Hypertensive heart and chronic kidney disease with heart failure and stage 1 through stage 4 chronic kidney disease, or unspecified chronic kidney disease; Z79.82 Long term (current) use of aspirin

== ENCOUNTER 2017-05-30 16:42 | Inpatient (IN) | payer SELFPAY ==
--- NOTE | 2017-05-30 17:34 | ED PDOC ---
HPI: Altered Mental Status Time Seen by Provider: 05/30/17 16:53 Chief Complaint (Nursing): Weakness/Neurological Deficit Chief Complaint (Provider): Psych Evaluation History Per: Patient History/Exam Limitations: None Onset/Duration Of Symptoms: Days (x 1) Current Symptoms Are (Timing): Still Present Additional Complaint(s): Kris Durand is a 66 year old male who was brought in by EMS for evaluation. He was found sleeping in the hallway of his building by a passerby today. Patient mentioned feeling feverish for the past 2 days. He reports that his last alcoholic drink was 2 weeks ago. Patient denies any chest pain or cough. PMD: none Past Medical History Reviewed: Historical Data, Nursing Documentation, Vital Signs Vital Signs: Last Vital Signs Temp 97.8 F 05/30/17 16:46 Pulse 73 05/30/17 16:46 Resp 18 05/30/17 16:46 BP 185/79 H 05/30/17 16:46 Pulse Ox 99 05/30/17 16:46 - Medical History PMH: Anemia, Anxiety, Bipolar Disorder, CHF, Depression, Diabetes (type II), HTN , Peripheral Edema, Pneumonia, Chronic Kidney Disease, Chronic Pain (b/l leg pain) Denies: Arthritis, COPD, Dementia, HIV, Hypercholesterolemia, Hypothyroidism , Rheumatoid Arthritis - Family History Family History: States: Unknown Family Hx - Social History Current smoker - smoking cessation education provided: Yes (Light smoker <10 a day) Alcohol: None Drugs: Denies - Home Medications Home Medications: Ambulatory Orders Medication Instructions Recorded Aspirin [Ecotrin] 81 mg PO DAILY #30 tabec 05/19/17 Atorvastatin [Lipitor] 40 mg PO DAILY #30 tab 05/19/17 Calcium Acetate [Phoslo] 1,334 mg PO WM #180 capsule 05/19/17 Furosemide [Lasix] 80 mg PO DAILY #30 tab 05/19/17 Gabapentin [Neurontin] 100 mg PO BID #60 cap 05/19/17 GlipiZIDE [Glucotrol] 10 mg PO ACD #30 tab 05/19/17 GlipiZIDE [Glucotrol] 15 mg PO ACB #90 tab 05/19/17 Lidocaine 5% [Lidoderm] 1 ea TD DAILY #30 patch 05/19/17 Metoprolol Succinate [Toprol XL] 25 mg PO DAILY #30 tab 05/19/17 Mirtazapine [Remeron] 30 mg PO HS #30 tab 05/19/17 amLODIPine [Norvasc] 10 mg PO DAILY #30 tab 05/19/17 cloNIDine [Catapres] 1 tab PO BID 30 Days #60 tab 05/19/17 hydrALAZINE [Apresoline] 100 mg PO TID #180 tab 05/19/17 risperiDONE [RisperDAL Tab] 3 mg PO HS #30 tab 05/19/17 traMADol [Ultram] 50 mg PO Q6 PRN #7 tab 05/19/17 Ciprofloxacin [Cipro] 500 mg PO BID #6 tab 05/21/17 Ibuprofen [Motrin] 600 mg PO Q6 #20 tab 05/21/17 - Allergies Allergies/Adverse Reactions: Allergies Allergy/AdvReac Type Severity Reaction Status Date / Time No Known Allergies Allergy Verified 05/21/17 16:02 Review of Systems ROS Statement: Except As Marked, All Systems Reviewed And Found Negative Cardiovascular: Negative for: Chest Pain Respiratory: Negative for: Cough Physical Exam - Reviewed Nursing Documentation Reviewed: Yes Vital Signs Reviewed: Yes - Physical Exam Appears: Positive for: Non-toxic, No Acute Distress Head Exam: Positive for: ATRAUMATIC, NORMOCEPHALIC Skin: Positive for: Normal Color Cardiovascular/Chest: Positive for: Regular Rate, Rhythm. Negative for: Murmur Respiratory: Positive for: Decreased Breath Sounds (on the left), Crackles (on right side) Extremity: Positive for: Swelling (generalized; all extremities). Negative for : Deformity (bony) Neurologic/Psych: Positive for: Alert, Oriented (x3) Comments: Facial edema to right side, noted. - Laboratory Results Result Diagrams: 06/02/17 10:30 06/03/17 10:10 - ECG O2 Sat by Pulse Oximetry: 99 (RA) Pulse Ox Interpretation: Normal Medical Decision Making Medical Decision Making: Time: 17:11 Impression: Subjective fever and edema Initial Plan: --VBG Shock panel --EKG --Alcohol Serum --BNP --CMP --Troponin --Urine Dipstick --EKG --CBC --PTT --Prothrombin time --chest x ray --Blood Culture --Urine culture --Influenza A B --Urinalysis Time: 17:30 Influenza A B --results reviews and are negative. Time: 18:19 --Admit to inpatient in telemetry to the care of Dr. Elizabeth Mckeon Attestation: Documented by Farrah Negrete, acting as a scribe for Katherine Alfredo MD. Provider Scribe Attestation: All medical record entries made by the Scribe were at my direction and personally dictated by me. I have reviewed the chart and agree that the record accurately reflects my personal performance of the history, physical exam, medical decision making, and the department course for this patient. I have also personally directed, reviewed, and agree with the discharge instructions and disposition. Disposition - Clinical Impression Clinical Impression: Pleural effusion, CHF (congestive heart failure) - Patient ED Disposition Is Patient to be Admitted: Yes - Disposition Disposition Time: 18:19 Condition: GUARDED - Pt Status Changed To: Hospital Disposition Of: Inpatient - Admit Certification Admit to Inpatient:: After my assessment, the patient will require hospitalization for at least two midnights. This is because of the severity of symptoms shown, intensity of services needed, and/or the medical risk in this patient being treated as an outpatient. - POA Present On Arrival: None
[2017-05-30 17:47] LABS: VENOUS BLOOD GAS BASE EXCESS -6.2 mmol/L (0.0-2.0); VENOUS BLOOD GAS PCO2 45 mmHg (40-60); VENOUS BLOOD PH 7.27 (7.32-7.43)
[2017-05-30 17:49] LABS: BASO # 0.1 K/uL (0.0-0.2); BASO % 0.9 % (0.0-2.0); EOS # 0.2 K/uL (0.0-0.7); EOS % 2.2 % (0.0-4.0); HEMATOCRIT 31.7 % (35.0-51.0); LYMPH # 2.2 K/uL (1.0-4.3); LYMPH % 24.9 % (20.0-40.0); MEAN CELL VOLUME 95.1 fl (80.0-94.0); MEAN CORPUSCULAR HEMOGLOBIN 31.1 pg (27.0-31.0); MEAN CORPUSCULAR HGB CONC 32.7 g/dL (33.0-37.0); MONO # 0.7 K/uL (0.0-0.8); MONO % 7.6 % (0.0-10.0); NEUT # 5.6 K/uL (1.8-7.0); NEUT % 64.4 % (50.0-75.0); RED CELL DISTRIBUTION WIDTH 15.5 % (11.5-14.5); WHITE BLOOD COUNT 8.7 K/uL (4.8-10.8)
[2017-05-30 18:12] LABS: PARTIAL THROMBOPLASTIN TIME 35.2 Seconds (25.6-37.1)
[2017-05-30 18:23] LABS: ALB/GLOB RATIO 0.9 (1.0-2.1); ALCOHOL SERUM < 10 mg/dl (0-10); ALKALINE PHOSPHATASE 152 U/L (38-126); ALT/SGPT 44 U/L (21-72); AST/SGOT 20 U/L (17-59); BILIRUBIN,TOTAL < 0.1 mg/dl (0.2-1.3); BLOOD UREA NITROGEN 38 mg/dl (9-20); CALCIUM 8.2 mg/dL (8.4-10.2); CARBON DIOXIDE 23 mmol/L (22-30); CHLORIDE 118 mmol/L (98-107); GFR AFRICAN-AMERICAN 43; GLUCOSE,RANDOM 132 mg/dL (75-110); POTASSIUM 3.9 MMOL/L (3.6-5.0); SODIUM 147 mmol/l (132-148); TOTAL PROTEIN 5.8 G/DL (6.3-8.2)
[2017-05-30 20:00] LABS: RBC URINE 3 /hpf (0-3); URINE BILIRUBIN NEGATIVE (NEGATIVE); URINE BLOOD SMALL (NEGATIVE); URINE COLOR YELLOW (YELLOW); URINE GLUCOSE (UA) >=500 mg/dL (Normal); URINE KETONE NEGATIVE (NEGATIVE); URINE LEUKOCYTE ESTERASE NEG Leu/uL (Negative); URINE PROTEIN >=500 mg/dL (NEGATIVE); URINE UROBILINOGEN 0.2-1.0 mg/dL (0.2-1.0); WBC URINE 4 /hpf (0-5)
--- NOTE | 2017-05-30 21:33 | CP.PCM.HP ---
History of Present Illness - History of Present Illness History of Present Illness: 66 year old undomiciled male presented with 2 day history of subjective fevers, chills and worsening productive cough. Of note he also complaints of polyuria and polydispia. While in ED patient repeated complaining he feels cold, and is covered with multiple blankets. He admits to having difficulty walking, legs feeling heavy making his gait unsteady. He has been feeling unwell for past few days and has not been taking his medications. He denies any headaches, visual changes, sore throat, chest pain, dyspnea, abdominal pain, nausea vomiting or diarrhea. Upon review of chart he was seen in ED last month for dysuria and back pain, treated with Cipro. He has been worked up for multiple myeloma in the past, bone biopsy was done Mar 2017: Hypocellular bone marrow. No evidence of overt or advanced myelodysplasia, acute leukemia, metastatic neoplasm or lymphoma. Labs from 2016 include: +SPEP,+UPEP, kappa light chain high. PMH: HTN, NIIDM2, CKD stage 3, depression, ?multiple myeloma Medications as per orders Allergies: NKDA Social: denies etoh, +tobacco use PMD: NHC Present on Admission - Present on Admission Any Indicators Present on Admission: No Review of Systems - Constitutional Constitutional: Chills, Fever - EENT Eyes: absent: Change in Vision Nose/Mouth/Throat: absent: Nasal Congestion, Post Nasal Drip, Dysphagia, Sore Throat, Neck Pain - Cardiovascular Cardiovascular: absent: Chest Pain, Palpitations - Respiratory Respiratory: Cough (productive). absent: Dyspnea, Hemoptysis, Wheezing, Excessive Mucous Production - Gastrointestinal Gastrointestinal: absent: Abdominal Pain, Change in Stool Character, Diarrhea, Nausea, Vomiting Past Patient History - Infectious Disease Hx of Infectious Diseases: None - Tetanus Immunizations Tetanus Immunization: Unknown - Past Medical History & Family History Past Medical History?: Yes - Past Social History Alcohol: None Drugs: Denies - CARDIAC Hx Hypertension: Yes - NEUROLOGICAL Hx Neurological Disorder: No - HEENT Hx HEENT Problems: No - RENAL Hx Chronic Kidney Disease: Yes - ENDOCRINE/METABOLIC Hx Diabetes Mellitus Type 2: Yes - HEMATOLOGICAL/ONCOLOGICAL Hx Blood Disorders: No - INTEGUMENTARY Hx Dermatological Problems: No - MUSCULOSKELETAL/RHEUMATOLOGICAL Hx Musculoskeletal Disorders: Yes (arthritis) - GASTROINTESTINAL Hx Gastrointestinal Disorders: No - GENITOURINARY/GYNECOLOGICAL Hx Genitourinary Disorders: No - PSYCHIATRIC Hx Psychophysiologic Disorder: Yes (bipolar, depression, anxiety) - SURGICAL HISTORY Hx Surgeries: No - ANESTHESIA Hx Anesthesia: Yes Hx Anesthesia Reactions: No Hx Malignant Hyperthermia: No Meds Allergies/Adverse Reactions: Allergies Allergy/AdvReac Type Severity Reaction Status Date / Time No Known Allergies Allergy Verified 05/21/17 16:02 Physical Exam - Constitutional Appears: No Acute Distress (appears uncomfortable) - Head Exam Head Exam: ATRAUMATIC, NORMAL INSPECTION, NORMOCEPHALIC - Respiratory Exam Respiratory Exam: Decreased Breath Sounds (left lower lung field), Clear to Auscultation Bilateral, NORMAL BREATHING PATTERN. absent: Accessory Muscle Use , Rales, Rhonchi, Wheezes, Respiratory Distress - Cardiovascular Exam Cardiovascular Exam: REGULAR RHYTHM, RRR, +S1, +S2. absent: Bradycardia, Tachycardia - GI/Abdominal Exam GI & Abdominal Exam: Normal Bowel Sounds, Soft. absent: Distended, Guarding, Tenderness - Rectal Exam Rectal Exam: Deferred - Extremities Exam Extremities exam: Positive for: pedal edema (extending up to knee, dry skin bilateral feet), tenderness (bilateral feet and legs, 3+ pitting edema). Negative for: pedal pulses present - Back Exam Back exam: NORMAL INSPECTION - Neurological Exam Neurological exam: Alert, CN II-XII Intact - Skin Skin Exam: Dry, Intact Results - Vital Signs Recent Vital Signs: Last Vital Signs Temp 98.4 F 05/30/17 20:48 Pulse 73 05/30/17 20:48 Resp 16 05/30/17 20:48 BP 185/81 H 05/30/17 20:48 Pulse Ox 98 05/30/17 20:48 - Labs Result Diagrams: 05/31/17 05:20 05/31/17 05:20 Labs: Laboratory Results - last 24 hr 05/30/17 05/30/17 05/30/17 17:30 17:30 17:30 WBC 8.7 RBC 3.33 L Hgb 10.4 L Hct 31.7 L MCV 95.1 H MCH 31.1 H MCHC 32.7 L RDW 15.5 H Plt Count 285 D MPV 10.0 Neut % (Auto) 64.4 Lymph % (Auto) 24.9 Yell % (Auto) 7.6 Eos % (Auto) 2.2 Baso % (Auto) 0.9 Neut # 5.6 Lymph # 2.2 Yell # 0.7 Eos # 0.2 Baso # 0.1 PT 10.4 INR 0.9 APTT 35.2 pO2 VBG pH VBG pCO2 VBG HCO3 VBG Total CO2 VBG O2 Sat (Calc) VBG Base Excess VBG Potassium Glucose Lactate FiO2 Sodium 147 Potassium 3.9 Chloride 118 H Carbon Dioxide 23 Anion Gap 10 BUN 38 H Creatinine 1.9 H Est GFR ( Amer) 43 Est GFR (Non-Af Amer) 36 Random Glucose 132 H Calcium 8.2 L Total Bilirubin < 0.1 L AST 20 ALT 44 Alkaline Phosphatase 152 H D Troponin I 0.0180 NT-Pro-B Natriuret Pep 4750 H Total Protein 5.8 L Albumin 2.7 L Globulin 3.0 Albumin/Globulin Ratio 0.9 L Venous Blood Potassium Urine Color Urine Clarity Urine pH Ur Specific [place] Urine Protein Urine Glucose (UA) Urine Ketones Urine Blood Urine Nitrate Urine Bilirubin Urine Urobilinogen Ur Leukocyte Esterase Urine RBC (Auto) Urine Microscopic WBC Ur Squamous Epith Cells Hyaline Casts Alcohol, Quantitative < 10 Influenza Typ A,B (EIA) 05/30/17 05/30/17 05/30/17 17:30 17:40 19:35 WBC RBC Hgb Hct MCV MCH MCHC RDW Plt Count MPV Neut % (Auto) Lymph % (Auto) Yell % (Auto) Eos % (Auto) Baso % (Auto) Neut # Lymph # Yell # Eos # Baso # PT INR APTT pO2 26 L VBG pH 7.27 L VBG pCO2 45 VBG HCO3 18.5 VBG Total CO2 22.1 VBG O2 Sat (Calc) 62.2 VBG Base Excess -6.2 L VBG Potassium 4.1 Glucose 129 H Lactate 0.5 L FiO2 21.0 Sodium 155.0 H Potassium Chloride 110.0 H Carbon Dioxide Anion Gap BUN Creatinine Est GFR ( Amer) Est GFR (Non-Af Amer) Random Glucose Calcium Total Bilirubin AST ALT Alkaline Phosphatase Troponin I NT-Pro-B Natriuret Pep Total Protein Albumin Globulin Albumin/Globulin Ratio Venous Blood Potassium 4.1 Urine Color Yellow Urine Clarity Slighty-cloudy Urine pH 5.0 Ur Specific [place] 1.016 Urine Protein >=500 Urine Glucose (UA) >=500 Urine Ketones Negative Urine Blood Small Urine Nitrate Negative Urine Bilirubin Negative Urine Urobilinogen 0.2-1.0 Ur Leukocyte Esterase Neg Urine RBC (Auto) 3 Urine Microscopic WBC 4 Ur Squamous Epith Cells 1 Hyaline Casts 3-5 H Alcohol, Quantitative Influenza Typ A,B (EIA) Negative for flu a/b Assessment & Plan (1) Proteinuria of undiagnosed cause Assessment and Plan: 66 year old male with hx of CKD, chronic pleural effusion, anemia, NIDDM2, HTN presented with complaints of productive cough, fevers/chills and anasarca, admitted due to anasarca likely 2' to proteinuria.. Possibly related to his chronic kidney disease and uncontrolled hypertension. Patient has 2+ pitting edema of bilateral lower extremities as well as swelling of upper extremities, he has chronic left pleural effusion that has been tapped in the past. given his productive cough will start empiric tx for HCAP: zosyn/ levaquin UA +protein>500, +glucose>500 consider 24 hour urine protein to assess proteinuria further Status: Acute (2) Anasarca Assessment and Plan: likely secondary to proteinuria Status: Acute (3) Pleural effusion Assessment and Plan: had thoracocentesis in the past appears stable on imaging Status: Chronic (4) Anemia Assessment and Plan: likely combination of anemia of chronic disease and iron deficiency anemia H.4 iron studies from 2016 -LOW: Iron: 47, TIBC:246, %Sat: 19, Ferritin: 99 is normal -HIGH MCV: 95 -Reticulocyte count WNL -TSH:3.5 WNL -vitamin B12 and folate WNL Status: Chronic (5) Chronic kidney disease, stage III (moderate) Status: Chronic (6) Diabetes mellitus type 2 in nonobese Status: Chronic (7) HTN (hypertension) Status: Chronic
[2017-05-30] MEDS: Metoprolol Succinate 25 mg XL Tab PO SCH (21:53)
[2017-05-31] MEDS ORDERED: Piperacillin/Tazobact 2.25 GM in Sodium Chloride 0.9% 50 ML IVPB SCH (04:00)
[2017-05-31 07:38] LABS: BASO # 0.1 K/uL (0.0-0.2); BASO % 0.6 % (0.0-2.0); EOS # 0.2 K/uL (0.0-0.7); HEMATOCRIT 25.7 % (35.0-51.0); LYMPH # 1.6 K/uL (1.0-4.3); LYMPH % 19.2 % (20.0-40.0); MEAN CORPUSCULAR HEMOGLOBIN 30.9 pg (27.0-31.0); MEAN CORPUSCULAR HGB CONC 32.9 g/dL (33.0-37.0); MEAN PLATELET VOLUME 10.2 fl (7.2-11.7); MONO # 0.6 K/uL (0.0-0.8); MONO % 7.6 % (0.0-10.0); NEUT % 70.6 % (50.0-75.0); RED CELL DISTRIBUTION WIDTH 14.9 % (11.5-14.5); WHITE BLOOD COUNT 8.5 K/uL (4.8-10.8)
[2017-05-31 07:51] LABS: ALB/GLOB RATIO 0.9 (1.0-2.1); ALKALINE PHOSPHATASE 114 U/L (38-126); ALT/SGPT 34 U/L (21-72); AST/SGOT 17 U/L (17-59); BILIRUBIN,TOTAL < 0.1 mg/dl (0.2-1.3); BLOOD UREA NITROGEN 36 mg/dl (9-20); CALCIUM 7.6 mg/dL (8.4-10.2); CARBON DIOXIDE 17 mmol/L (22-30); CHLORIDE 121 mmol/L (98-107); GFR AFRICAN-AMERICAN 43; GLUCOSE,RANDOM 223 mg/dL (75-110); POTASSIUM 3.7 MMOL/L (3.6-5.0); SODIUM 143 mmol/l (132-148); TOTAL PROTEIN 4.7 G/DL (6.3-8.2)
[2017-05-31] MEDS ORDERED: levoFLOXacin 500 mg in D5W 500 MG/100 ML BAG IVPB SCH (09:00)
[2017-05-31] MEDS ORDERED: Enoxaparin 40 mg Syringe SC SCH (09:00)
[2017-05-31] MEDS: Calcium Acetate 667 MG Capsule PO SCH ×3 (09:03→18:18)
[2017-05-31] MEDS: Metoprolol Succinate 25 mg XL Tab PO SCH (09:03)
--- NOTE | 2017-05-31 10:15 | CARD ---
APPROVED REPORT EKG Measurement Heart [id number] <Conclusion> Undetermined rhythm Prolonged QT Abnormal ECG
--- NOTE | 2017-05-31 10:53 | CP.PCM.PN ---
Subjective - Date & Time of Evaluation Date of Evaluation: 05/31/17 Time of Evaluation: 08:45 - Subjective Subjective: Patient seen and examined at bedside. No acute events overnight. Patient states still feels weak/fatigued with occasional SOB. No chest pain. Occasional cough. Afebrile overnight. Eating breakfast at this time. Admits to not taking medications in last 3-4 days. Patient does not follow up with specialists as indicated (heme/onc, nephro). No other complaints offered at this time. Objective - Vital Signs/Intake and Output Vital Signs (last 24 hours): Temp Pulse Resp BP Pulse Ox 97.7 F 80 18 172/61 H 97 05/31/17 08:13 05/31/17 09:03 05/31/17 08:13 05/31/17 09:03 05/31/17 08:13 - Medications Medications: Current Medications Amlodipine Besylate (Norvasc) 10 mg PO DAILY [facility] Last Admin: 05/31/17 09:03 Dose: 10 mg Aspirin (Ecotrin) 81 mg PO DAILY [facility] Last Admin: 05/31/17 09:02 Dose: 81 mg Atorvastatin Calcium (Lipitor) 40 mg PO DAILY [facility] Last Admin: 05/31/17 09:02 Dose: 40 mg Calcium Acetate (Phoslo) 1,334 mg PO WM [facility] Last Admin: 05/31/17 09:03 Dose: 1,334 mg Clonidine HCl (Catapres) 1 mg PO BID [facility] Enoxaparin Sodium (Lovenox) 40 mg SC DAILY [facility] PRN Reason: Protocol Last Admin: 05/31/17 08:59 Dose: 40 mg Furosemide (Lasix) 80 mg PO DAILY [facility] Last Admin: 05/31/17 09:02 Dose: 80 mg Gabapentin (Neurontin) 100 mg PO BID [facility] Last Admin: 05/31/17 09:02 Dose: 100 mg Glipizide (Glucotrol) 10 mg PO ACD [facility] Glipizide (Glucotrol) 15 mg PO ACB [facility] Hydralazine HCl (Apresoline) 100 mg PO TID [facility] Last Admin: 05/31/17 09:00 Dose: 100 mg Piperacillin Sod/Tazobactam (Sod 2.25 gm/ Sodium Chloride) 100 mls @ 100 mls/ hr IVPB Q6 [facility] PRN Reason: Protocol Last Admin: 05/31/17 09:07 Dose: 100 mls/hr Metoprolol Succinate (Toprol Xl) 25 mg PO DAILY [facility] Last Admin: 05/31/17 09:03 Dose: 25 mg Mirtazapine (Remeron) 30 mg PO HS [facility] Last Admin: 05/30/17 21:53 Dose: 30 mg Risperidone (Risperdal Tab) 3 mg PO HS [facility] Last Admin: 05/30/17 21:53 Dose: 3 mg Tramadol HCl (Ultram) 50 mg PO Q6 PRN PRN Reason: Pain, moderate (4-7) - Labs Labs: 05/31/17 05:20 05/31/17 05:20 PT 10.4 Seconds (9.8-13.1) 05/30/17 17:30 INR 0.9 (0.9-1.2) 05/30/17 17:30 APTT 35.2 Seconds (25.6-37.1) 05/30/17 17:30 - Constitutional Appears: Non-toxic, No Acute Distress - Head Exam Head Exam: NORMAL INSPECTION - Eye Exam Eye Exam: Normal appearance - Neck Exam Neck Exam: Normal Inspection - Respiratory Exam Respiratory Exam: Decreased Breath Sounds (Bases, L > R), NORMAL BREATHING PATTERN. absent: Rales, Wheezes - Cardiovascular Exam Cardiovascular Exam: RRR, +S1, +S2 - GI/Abdominal Exam GI & Abdominal Exam: Soft, Normal Bowel Sounds - Extremities Exam Extremities Exam: Pedal Edema (2+ extending to knees bilaterally) - Back Exam Back Exam: NORMAL INSPECTION - Neurological Exam Neurological Exam: Alert, Awake - Psychiatric Exam Psychiatric exam: Normal Affect, Normal Mood - Skin Skin Exam: Dry, Intact, Normal Color, Warm Assessment and Plan - Assessment and Plan (Free Text) Assessment: 66 year old male with hx of CKD, chronic pleural effusion, anemia, NIDDM2, HTN presented with complaints of productive cough, fevers/chills and extremity swelling. Patient has 2+ pitting edema of bilateral lower extremities and he has chronic left pleural effusion that has been tapped in the past. Afebrile at this time. Plan: (1) HCAP -given his productive cough empiric tx for HCAP started: zosyn/levaquin -CXR official read reviewed, unable to r/o infiltrate (2) Bilateral leg edema likely due to CHF -echo from 07/2016 reviewed, will repeat at this time. -B[place] 4k, [place] [id number] [place] 03/2017 -will give IV lasix 40mg IVP for diuresis -Cardio consulted, appreciate recommendations (3) Proteinuria of undiagnosed cause -UA +protein>500, +glucose>500 -consider 24 hour urine protein to assess proteinuria further -Nephro consulted, appreciate recommendations (4) Pleural effusion -had thoracocentesis in the past -appears stable on imaging (5) Anemia -likely combination of anemia of chronic disease (indolent MM) and iron deficiency anemia H.4 (consistent with previous values) iron studies from 2016 -LOW: Iron: 47, TIBC:246, %Sat: 19, Ferritin: 99 is normal -HIGH MCV: 95 -Reticulocyte count WNL -TSH:3.5 WNL -vitamin B12 and folate WNL (6) Chronic kidney disease, stage III (moderate) -GFR 36, CrCl 37 (7) Diabetes mellitus type 2 in nonobese -c/w home meds -glucosuria present (8) HTN (hypertension) -uncontrolled due to non compliance with meds -restart meds at this time (9) DVT prophylaxis -Heparin 5000 SC q8H due to renal failure
--- NOTE | 2017-05-31 13:37 | CP.PCM.CON ---
History of Present Illness - History of Present Illness History of Present Illness: 66 year old undomiciled male presented with 2 day history of subjective fevers, chills and worsening productive cough. He denies any headaches, visual changes, sore throat, chest pain, dyspnea, abdominal pain, nausea vomiting or diarrhea. Upon review of chart he was seen in ED last month for dysuria and back pain, treated with Cipro. He has been worked up for multiple myeloma in the past, bone biopsy was done Mar 2017: Hypocellular bone marrow. Pt denies SOB at present able to lie flat . Anemia, Anxiety, Bipolar Disorder, CHF, Depression, Diabetes (type II), HTN, Peripheral Edema, Pneumonia, Chronic Kidney Disease, Chronic Pain (b/l leg pain) PMH: HTN, NIIDM2, CKD stage 3, depression, ?multiple myeloma Medications as per orders Allergies: NKDA Social: denies etoh, +tobacco use BNP: 4,750 Hgb: 7.9 this AM EKG: NSR 06/01/17 Echo: normal good LV function EF: 60-65% Past Patient History - Infectious Disease Hx of Infectious Diseases: None - Tetanus Immunizations Tetanus Immunization: Unknown - Past Medical History & Family History Past Medical History?: Yes - Past Social History Alcohol: None Drugs: Denies - CARDIAC Hx Hypertension: Yes - PULMONARY Hx Respiratory Disorders: Yes (COPD) - NEUROLOGICAL Hx Neurological Disorder: No - HEENT Hx HEENT Problems: No - RENAL Hx Chronic Kidney Disease: Yes - ENDOCRINE/METABOLIC Hx Diabetes Mellitus Type 2: Yes - HEMATOLOGICAL/ONCOLOGICAL Hx Blood Disorders: No - INTEGUMENTARY Hx Dermatological Problems: No - MUSCULOSKELETAL/RHEUMATOLOGICAL Hx Musculoskeletal Disorders: Yes (arthritis) - GASTROINTESTINAL Hx Gastrointestinal Disorders: No - GENITOURINARY/GYNECOLOGICAL Hx Genitourinary Disorders: No - PSYCHIATRIC Hx Psychophysiologic Disorder: Yes (bipolar, depression, anxiety) - SURGICAL HISTORY Hx Surgeries: No - ANESTHESIA Hx Anesthesia: Yes Hx Anesthesia Reactions: No Hx Malignant Hyperthermia: No Meds Allergies/Adverse Reactions: Allergies Allergy/AdvReac Type Severity Reaction Status Date / Time No Known Allergies Allergy Verified 05/21/17 16:02 - Medications Medications: Current Medications Amlodipine Besylate (Norvasc) 10 mg PO DAILY [facility] Last Admin: 05/31/17 09:03 Dose: 10 mg Aspirin (Ecotrin) 81 mg PO DAILY [facility] Last Admin: 05/31/17 09:02 Dose: 81 mg Atorvastatin Calcium (Lipitor) 40 mg PO DAILY [facility] Last Admin: 05/31/17 09:02 Dose: 40 mg Calcium Acetate (Phoslo) 1,334 mg PO WM [facility] Last Admin: 05/31/17 09:03 Dose: 1,334 mg Clonidine HCl (Catapres) 0.1 mg PO BID [facility] Furosemide (Lasix) 80 mg PO DAILY [facility] Last Admin: 05/31/17 09:02 Dose: 80 mg Gabapentin (Neurontin) 100 mg PO BID [facility] Last Admin: 05/31/17 09:02 Dose: 100 mg Glipizide (Glucotrol) 10 mg PO ACD [facility] Glipizide (Glucotrol) 15 mg PO ACB [facility] Heparin Sodium (Porcine) (Heparin) 5,000 units SC Q8 [facility] PRN Reason: Protocol Hydralazine HCl (Apresoline) 100 mg PO TID [facility] Last Admin: 05/31/17 09:00 Dose: 100 mg Piperacillin Sod/Tazobactam (Sod 2.25 gm/ Sodium Chloride) 100 mls @ 100 mls/ hr IVPB Q6 [facility] PRN Reason: Protocol Last Admin: 05/31/17 09:07 Dose: 100 mls/hr Levofloxacin/Dextrose (Levaquin 750mg) 750 mg in 150 mls @ 100 mls/hr IVPB QOD [facility] Metoprolol Succinate (Toprol Xl) 25 mg PO DAILY [facility] Last Admin: 05/31/17 09:03 Dose: 25 mg Mirtazapine (Remeron) 30 mg PO HS [facility] Last Admin: 05/30/17 21:53 Dose: 30 mg Risperidone (Risperdal Tab) 3 mg PO [facility] Last Admin: 05/30/17 21:53 Dose: 3 mg Tramadol HCl (Ultram) 50 mg PO Q6 PRN PRN Reason: Pain, moderate (4-7) Physical Exam - Head Exam Head Exam: NORMAL INSPECTION - ENT Exam ENT Exam: Normal Exam - Neck Exam Neck exam: Positive for: Normal Inspection - Respiratory Exam Respiratory Exam: NORMAL BREATHING PATTERN - Cardiovascular Exam Cardiovascular Exam: REGULAR RHYTHM Results - Vital Signs Recent Vital Signs: Last Vital Signs Temp 98.7 F 05/31/17 12:50 Pulse 74 05/31/17 12:50 Resp 18 05/31/17 12:50 BP 164/69 H 05/31/17 12:50 Pulse Ox 98 05/31/17 12:50 - Labs Result Diagrams: 06/01/17 05:30 06/01/17 05:30 Labs: Laboratory Results - last 24 hr 05/30/17 05/30/17 05/30/17 17:30 17:30 17:30 WBC 8.7 RBC 3.33 L Hgb 10.4 L Hct 31.7 L MCV 95.1 H MCH 31.1 H MCHC 32.7 L RDW 15.5 H Plt Count 285 D MPV 10.0 Neut % (Auto) 64.4 Lymph % (Auto) 24.9 [place] % (Auto) 7.6 Eos % (Auto) 2.2 Baso % (Auto) 0.9 Neut # 5.6 Lymph # 2.2 Foard # 0.7 Eos # 0.2 Baso # 0.1 PT 10.4 INR 0.9 APTT 35.2 pO2 VBG pH VBG pCO2 VBG HCO3 VBG Total CO2 VBG O2 Sat (Calc) VBG Base Excess VBG Potassium Glucose Lactate FiO2 Sodium 147 Potassium 3.9 Chloride 118 H Carbon Dioxide 23 Anion Gap 10 BUN 38 H Creatinine 1.9 H Est GFR ( Amer) 43 Est GFR (Non-Af Amer) 36 POC Glucose (mg/dL) Random Glucose 132 H Calcium 8.2 L Total Bilirubin < 0.1 L AST 20 ALT 44 Alkaline Phosphatase 152 H D Troponin I 0.0180 NT-Pro-B Natriuret Pep 4750 H Total Protein 5.8 L Albumin 2.7 L Globulin 3.0 Albumin/Globulin Ratio 0.9 L Venous Blood Potassium Urine Color Urine Clarity Urine pH Ur Specific [place] Urine Protein Urine Glucose (UA) Urine Ketones Urine Blood Urine Nitrate Urine Bilirubin Urine Urobilinogen Ur Leukocyte Esterase Urine RBC (Auto) Urine Microscopic WBC Ur Squamous Epith Cells Hyaline Casts Alcohol, Quantitative < 10 Influenza Typ A,B (EIA) 05/30/17 05/30/17 05/30/17 17:30 17:40 19:35 WBC RBC Hgb Hct MCV MCH MCHC RDW Plt Count MPV Neut % (Auto) Lymph % (Auto) [place] % (Auto) Eos % (Auto) Baso % (Auto) Neut # Lymph # [place] # Eos # Baso # PT INR APTT pO2 26 L VBG pH 7.27 L VBG pCO2 45 VBG HCO3 18.5 VBG Total CO2 22.1 VBG O2 Sat (Calc) 62.2 VBG Base Excess -6.2 L VBG Potassium 4.1 Glucose 129 H Lactate 0.5 L FiO2 21.0 Sodium 155.0 H Potassium Chloride 110.0 H Carbon Dioxide Anion Gap BUN Creatinine Est GFR ( Amer) Est GFR (Non-Af Amer) POC Glucose (mg/dL) Random Glucose Calcium Total Bilirubin AST ALT Alkaline Phosphatase Troponin I NT-Pro-B Natriuret Pep Total Protein Albumin Globulin Albumin/Globulin Ratio Venous Blood Potassium 4.1 Urine Color Yellow Urine Clarity Slighty-cloudy Urine pH 5.0 Ur Specific [place] 1.016 Urine Protein >=500 Urine Glucose (UA) >=500 Urine Ketones Negative Urine Blood Small Urine Nitrate Negative Urine Bilirubin Negative Urine Urobilinogen 0.2-1.0 Ur Leukocyte Esterase Neg Urine RBC (Auto) 3 Urine Microscopic WBC 4 Ur Squamous Epith Cells 1 Hyaline Casts 3-5 H Alcohol, Quantitative Influenza Typ A,B (EIA) Negative for flu a/b 05/30/17 05/31/17 05/31/17 21:12 05:20 05:20 WBC 8.5 RBC 2.73 L Hgb 8.4 L D Hct 25.7 L MCV 94.0 MCH 30.9 MCHC 32.9 L RDW 14.9 H Plt Count 209 MPV 10.2 Neut % (Auto) 70.6 Lymph % (Auto) 19.2 L [place] % (Auto) 7.6 Eos % (Auto) 2.0 Baso % (Auto) 0.6 Neut # 6.0 Lymph # 1.6 [place] # 0.6 Eos # 0.2 Baso # 0.1 PT INR APTT pO2 VBG pH VBG pCO2 VBG HCO3 VBG Total CO2 VBG O2 Sat (Calc) VBG Base Excess VBG Potassium Glucose Lactate FiO2 Sodium 143 Potassium 3.7 Chloride 121 H Carbon Dioxide 17 L Anion Gap 9 L BUN 36 H Creatinine 1.9 H Est GFR ( Amer) 43 Est GFR (Non-Af Amer) 36 POC Glucose (mg/dL) 138 H Random Glucose 223 H Calcium 7.6 L Total Bilirubin < 0.1 L AST 17 ALT 34 Alkaline Phosphatase 114 Troponin I NT-Pro-B Natriuret Pep Total Protein 4.7 L Albumin 2.2 L Globulin 2.5 Albumin/Globulin Ratio 0.9 L Venous Blood Potassium Urine Color Urine Clarity Urine pH Ur Specific [place] Urine Protein Urine Glucose (UA) Urine Ketones Urine Blood Urine Nitrate Urine Bilirubin Urine Urobilinogen Ur Leukocyte Esterase Urine RBC (Auto) Urine Microscopic WBC Ur Squamous Epith Cells Hyaline Casts Alcohol, Quantitative Influenza Typ A,B (EIA) 05/31/17 05/31/17 05:35 11:06 WBC RBC Hgb Hct MCV MCH MCHC RDW Plt Count MPV Neut % (Auto) Lymph % (Auto) [place] % (Auto) Eos % (Auto) Baso % (Auto) Neut # Lymph # [place] # Eos # Baso # PT INR APTT pO2 VBG pH VBG pCO2 VBG HCO3 VBG Total CO2 VBG O2 Sat (Calc) VBG Base Excess VBG Potassium Glucose Lactate FiO2 Sodium Potassium Chloride Carbon Dioxide Anion Gap BUN Creatinine Est GFR ( Amer) Est GFR (Non-Af Amer) POC Glucose (mg/dL) 193 H 251 H Random Glucose Calcium Total Bilirubin AST ALT Alkaline Phosphatase Troponin I NT-Pro-B Natriuret Pep Total Protein Albumin Globulin Albumin/Globulin Ratio Venous Blood Potassium Urine Color Urine Clarity Urine pH Ur Specific [place] Urine Protein Urine Glucose (UA) Urine Ketones Urine Blood Urine Nitrate Urine Bilirubin Urine Urobilinogen Ur Leukocyte Esterase Urine RBC (Auto) Urine Microscopic WBC Ur Squamous Epith Cells Hyaline Casts Alcohol, Quantitative Influenza Typ A,B (EIA) Assessment & Plan - Assessment and Plan (Free Text) Assessment: Acute on chronic Left Systolic CHF Anemia DM CRF ? Multiple Myeloma
--- NOTE | 2017-05-31 13:53 | RAD ---
HISTORY: Fever COMPARISON: [facility] comparison chest dated 05/19/2017. FINDINGS: LUNGS: Re- demonstrated is opacification left lower lung culver slightly decreased from prior exam. Findings consistent with some combination of large effusion with atelectasis and/or infiltrate. Right lung is relatively clear. PLEURA: No significant pleural effusion identified, no pneumothorax apparent. CARDIOVASCULAR: Heart size difficult to assess due to silhouetting left cardiac border OSSEOUS STRUCTURES: No significant abnormalities. VISUALIZED UPPER ABDOMEN: Normal. OTHER FINDINGS: None. IMPRESSION: Re- demonstrated is opacification left lower lung culver slightly decreased from prior exam. Findings consistent with some combination of large effusion with atelectasis and/or infiltrate. Right lung is relatively clear.
--- NOTE | 2017-05-31 16:22 | CARD ---
APPROVED REPORT EXAM: Two-dimensional and M-mode echocardiogram with Doppler and color Doppler. Other Information Quality : GoodRhythm : NSR INDICATION Dyspnea 2D DIMENSIONS Left Atrium (2D)3.93 (1.6-4.0cm)IVSd1.05 (0.7-1.1cm) Aortic Root (2D)2.65 (2.0-3.7cm)LVDd4.80 (3.9-5.9cm) LVOT Diameter1.88 (1.8-2.4cm)PWd1.38 (0.7-1.1cm) IVSs1.51 (0.8-1.2cm)LVDs3.06 (2.5-4.0cm) FS (%) 36.2 %PWs1.86 (0.8-1.2cm) M-Mode DIMENSIONS Left Atrium (MM)3.93 (2.5-4.0cm)IVSd1.27 (0.7-1.1cm) Aortic Root3.40 (2.2-3.7cm)LVDd5.13 (4.0-5.6cm) Aortic Cusp Exc.1.33 (1.5-2.0cm)PWd1.27 (0.7-1.1cm) IVSs1.40 cmFS (%) 31 % LVDs3.53 (2.0-3.8cm)PWs1.67 cm Mitral Valve MV E Udlieugl123.9cm/sMV DECEL [id number] A Qcekqoth705.6cm/s MV [id number]/A ratio0.9MVA (PHT)4.36cm2 TDI Lateral E' Peak V8.47cm/sMedial E' Peak V9.04cm/sE/Lateral E'13.3 E/Medial E'12.5 Pulmonary Valve PV Peak Crdtrmzp445.3cm/s LEFT VENTRICLE The left ventricle is normal size. There is normal left ventricular wall thickness. The left ventricular function is normal. The left ventricular ejection fraction is within the normal range. The Ejection Fraction is 60-65%. There is normal LV segmental wall motion. The left ventricular diastolic function is normal. RIGHT VENTRICLE The right ventricle is normal size. There is normal right ventricular wall thickness. The right ventricular systolic function is normal. ATRIA The left atrium size is normal. The right atrium size is normal. AORTIC VALVE The aortic valve is normal in structure. No aortic regurgitation is present. There is no aortic valvular stenosis. MITRAL VALVE The mitral valve is normal in structure. There is no mitral valve stenosis. There is no mitral valve regurgitation noted. TRICUSPID VALVE The tricuspid valve is normal in structure. There is no tricuspid valve regurgitation noted. There is no tricuspid valve stenosis. PULMONIC VALVE The pulmonary valve is normal in structure. There is no pulmonic valvular regurgitation. GREAT VESSELS The aortic root is normal in size. The IVC is normal in size and collapses >50% with inspiration. PERICARDIAL EFFUSION The pericardium appears normal. <Conclusion> The left ventricle is normal size. The left ventricular function is normal. The left ventricular ejection fraction is within the normal range. The Ejection Fraction is 60-65%.
--- NOTE | 2017-05-31 21:49 | CON ---
NEPHROLOGY CONSULTATION HISTORY OF PRESENT ILLNESS: A 66-year-old homeless male with past medical history of hypertension, diabetes, CKD stage IIIB, depression and monoclonal gammopathy, presented with 2-day history of subjective fevers, chills and cough. Admitted for pleural effusion and CHF exacerbation. The patient with multiple admissions to [facility] over the past 2. On last admission, which was last month for CHF exacerbation, the patient underwent further renal workup and found to have a kappa predominant paraproteinemia with bone marrow biopsy done, which was negative for malignancy. The patient reports shortness of breath on walking just 1 block; has been having marked swelling of his legs since the past 2 months. The patient gives history that he uses Advil 4 tablets a day for his back pain; the patient also reports slow urine stream at times, but denies any dysuria and urinates about 2 to 3 times per night. Regarding current symptoms, the patient reports subjective fevers and chills that started about 2 days ago. Reports cough with pleuritic chest pain. PAST MEDICAL HISTORY: As above, the patient with IgA predominant kappa monoclonal gammopathy, CHF with mild systolic dysfunction and diastolic dysfunction, the patient with persistent and recurrent left pleural effusion. FAMILY HISTORY: SOCIAL HISTORY: Smokes 10 cigarettes per day. REVIEW OF SYSTEMS: CONSTITUTIONAL: As per HPI, fevers and chills. Appetite has been good. HEENT: Worsening vision. Denies any sore throat. RESPIRATORY: Per HPI. CARDIOVASCULAR: Reports palpitations. GASTROINTESTINAL: Denies any nausea, vomiting or diarrhea, but does report intermittent black stools. GENITOURINARY: As per HPI. SKIN: Denies pruritus. NEUROLOGIC: Has some numbness of feet. Denies headaches. Reports occasional dizziness. PSYCHIATRIC: Recent admission for depression with psychotic features. PHYSICAL EXAMINATION: GENERAL: Lying comfortably in bed without supplemental oxygen. Able to converse coherently in full sentences. No distress. VITAL SIGNS: Vitals this afternoon: Blood pressure 164/69, down from 202/79 last night; heart rate 74; respirations 18; temperature 98.7; O2 sat 98% on room air. HEENT: Has edema of face with even distribution. No cervical lymphadenopathy. No carotid bruits. RESPIRATORY: Lungs are clear to auscultation bilaterally. Markedly decreased breath sounds on left. CARDIOPULMONARY: Heart sounds, soft systolic murmur. Regular rate and rhythm. Faint right dorsalis pedis pulse, 2+ on left. GASTROINTESTINAL: Abdomen is soft, nontender, nondistended. GENITOURINARY: No bladder distention. EXTREMITIES: Moderate bilateral lower leg edema. SKIN: Warm. No cyanosis. PSYCHIATRIC: Normal mood. Normal affect. LABORATORY DATA: Labs this morning, CBC: WBC 8.5, hemoglobin 8.4, hematocrit 25.7, platelets 209. Chemistry panel: Sodium 143, potassium 3.7, chloride 121, bicarb 17, BUN 36, creatinine 1.9, glucose 223, calcium 7.6, AST 17, ALT 34, albumin 2.2. UA: Specific gravity 1.016, protein greater than 500 mg/dL, glucose greater than 500 mg/dL. Previous 24-hour urine dropped in collection showed just over 9 g protein done in 02/2017. Chest x-ray: Left-sided large pleural effusion. ASSESSMENT AND PLAN: 1. Chronic kidney disease stage IIIB. The patient with progressive renal insufficiency with serum creatinine increasing from approximately 1.1 one year ago to current level of 1.9. The patient already had severe nephrotic range proteinuria 1 year ago, which is atypical with relatively preserved renal function if these were simply diabetic nephropathy. The patient has multiple causes for nephrotic syndrome including possible monoclonal gammopathy of renal significance despite not having overt multiple myeloma. Also, the patient has history of extensive nonsteroidal antiinflammatory drug use and can have secondary membranous nephropathy. Ideally, the patient needs renal biopsy in order to find a treatable cause of his nephrotic syndrome. However, given the patient's social situation and lack of followup, utility of biopsy is limited unless the patient can guarantee that he will follow up with us closely. For now, we will continue to discuss need for biopsy with the patient and need for close followup. -We will start small dose of lisinopril 10 mg daily for antiproteinuric effect (hyperkalemia previously noted, but currently with potassium of only 3.7). 2. Hypertensive chronic kidney disease in the setting of medication noncompliance. The patient restarted on his home medications of amlodipine 10 mg daily, clonidine 0.1 mg b.i.d., hydralazine 100 mg t.i.d., metoprolol 25 mg daily and furosemide 80 mg daily. Blood pressure has already been brought down to a safe range (i.e. 25% decrease over the first day). We will change Lasix to IV 40 mg in the a.m. and 20 mg in the p.m. for the next 1 to 2 days. We can switch back to p.o. formulation thereafter. Ideally, he should be on b.i.d. dosing of Lasix given nephrotic syndrome; however, with inconsistent followup, this can potentially be dangerous as outpatient. 3. Chronic kidney disease mineral bone disorder. Corrected calcium is in normal range; however, likely has some degree of secondary hyperparathyroidism due to chronic kidney disease. We will check PTH and vitamin D 25-hydroxy levels. 4. Congestive heart failure with diastolic and systolic dysfunction. The patient is relatively euvolemic on exam despite having marked edema and large pleural effusion. Continue beta blockers; start ARON inhibior and bid diuretics dosing. 5. Pleural Effusion - Persistent L sided pleural effusion; previous fluid analysis consistent with transudate but should consider another thoracentesis with fluid analysis; 6. Pneumonia. The patient is being covered for possible healthcare-associated pneumonia. Started on Zosyn 2.25 g q. 6 hours and Levaquin 750 mg daily. We can consider lowering frequency of Levaquin to q. 48 hours for creatinine clearance less than 40. 7. Anemia - Repeat iron studies (iron deficient last month); will give IV iron if blood cultures remain negative. Thank you for this consult, we will be following closely. Fam Luz MD LEONARDO
[2017-06-01 06:30] LABS: HEMATOCRIT 24.1 % (35.0-51.0); MEAN CELL VOLUME 96.5 fl (80.0-94.0); MEAN CORPUSCULAR HEMOGLOBIN 31.6 pg (27.0-31.0); MEAN CORPUSCULAR HGB CONC 32.7 g/dL (33.0-37.0); RED CELL DISTRIBUTION WIDTH 15.3 % (11.5-14.5); WHITE BLOOD COUNT 8.9 K/uL (4.8-10.8)
[2017-06-01 07:00] LABS: ALB/GLOB RATIO 0.8 (1.0-2.1); ALKALINE PHOSPHATASE 97 U/L (38-126); ALT/SGPT 35 U/L (21-72); AST/SGOT 19 U/L (17-59); BILIRUBIN,TOTAL < 0.1 mg/dl (0.2-1.3); BLOOD UREA NITROGEN 37 mg/dl (9-20); CALCIUM 7.8 mg/dL (8.4-10.2); CARBON DIOXIDE 22 mmol/L (22-30); CHLORIDE 117 mmol/L (98-107); GFR AFRICAN-AMERICAN 36; GLUCOSE,RANDOM 70 mg/dL (75-110); IRON 51 ug/dL (49-181); PHOSPHOROUS 5.1 mg/dl (2.5-4.5); POTASSIUM 4.2 MMOL/L (3.6-5.0); SODIUM 142 mmol/l (132-148); TOTAL PROTEIN 4.6 G/DL (6.3-8.2)
[2017-06-01] MEDS: Calcium Acetate 667 MG Capsule PO SCH ×3 (08:19→17:58)
[2017-06-01] MEDS ORDERED: levoFLOXacin 750 mg in D5W 750 MG/150 ML BAG IVPB SCH (09:00)
[2017-06-01] MEDS ORDERED: levoFLOXacin 750 mg in D5W 150 ML BAG IVPB SCH (09:00)
[2017-06-01] MEDS: Metoprolol Succinate 25 mg XL Tab PO SCH (09:20)
--- NOTE | 2017-06-01 10:55 | CP.PCM.PN ---
Subjective - Date & Time of Evaluation Date of Evaluation: 06/01/17 Time of Evaluation: 08:49 - Subjective Subjective: Patient seen and examined at bedside. No acute events overnight though states coughing throughout night. Patient states still feels weak/fatigued with occasional SOB. No chest pain. Afebrile overnight. Seen by heme/onc and cardio yesterday. ECHO completed yesterday. Patient is homeless and non compliant with follow up appts. No other complaints offered at this time. Objective - Vital Signs/Intake and Output Vital Signs (last 24 hours): Temp Pulse Resp BP Pulse Ox 98.5 F 72 18 151/64 H 96 06/01/17 08:00 06/01/17 09:20 06/01/17 08:00 06/01/17 09:20 06/01/17 08:00 - Medications Medications: Current Medications Amlodipine Besylate (Norvasc) 10 mg PO DAILY [facility] Last Admin: 06/01/17 09:19 Dose: 10 mg Aspirin (Ecotrin) 81 mg PO DAILY [facility] Last Admin: 06/01/17 09:03 Dose: 81 mg Atorvastatin Calcium (Lipitor) 40 mg PO DAILY [facility] Last Admin: 06/01/17 09:17 Dose: 40 mg Calcium Acetate (Phoslo) 1,334 mg PO WM [facility] Last Admin: 06/01/17 08:19 Dose: 1,334 mg Clonidine HCl (Catapres) 0.1 mg PO BID [facility] Last Admin: 06/01/17 09:02 Dose: 0.1 mg Furosemide (Lasix) 40 mg PO DAILY [facility] Gabapentin (Neurontin) 100 mg PO BID [facility] Last Admin: 06/01/17 09:17 Dose: 100 mg Glipizide (Glucotrol) 10 mg PO ACD [facility] Last Admin: 05/31/17 18:14 Dose: 10 mg Glipizide (Glucotrol) 15 mg PO ACB [facility] Last Admin: 06/01/17 08:17 Dose: 15 mg Heparin Sodium (Porcine) (Heparin) 5,000 units SC Q8 [facility] PRN Reason: Protocol Last Admin: 06/01/17 09:18 Dose: 5,000 units Hydralazine HCl (Apresoline) 100 mg PO TID [facility] Last Admin: 06/01/17 09:16 Dose: 100 mg Piperacillin Sod/Tazobactam (Sod 2.25 gm/ Sodium Chloride) 100 mls @ 100 mls/ hr IVPB Q6 [facility] PRN Reason: Protocol Stop: 06/01/17 14:00 Last Admin: 06/01/17 04:38 Dose: 100 mls/hr Levofloxacin/Dextrose (Levaquin 750mg) 750 mg in 150 mls @ 100 mls/hr IVPB QOD [facility] Piperacillin Sod/Tazobactam (Sod 2.25 gm/ Sodium Chloride) 50 mls @ 50 mls/hr IVPB Q6 [facility] PRN Reason: Protocol Lisinopril (Zestril) 10 mg PO DAILY [facility] Last Admin: 06/01/17 09:20 Dose: 10 mg Metoprolol Succinate (Toprol Xl) 25 mg PO DAILY [facility] Last Admin: 06/01/17 09:20 Dose: 25 mg Mirtazapine (Remeron) 30 mg PO HS [facility] Last Admin: 05/31/17 21:31 Dose: 30 mg Risperidone (Risperdal Tab) 3 mg PO HS [facility] Last Admin: 05/31/17 21:31 Dose: 3 mg Tramadol HCl (Ultram) 50 mg PO Q6 PRN PRN Reason: Pain, moderate (4-7) - Labs Labs: 06/01/17 05:30 06/01/17 05:30 PT 10.4 Seconds (9.8-13.1) 05/30/17 17:30 INR 0.9 (0.9-1.2) 05/30/17 17:30 APTT 35.2 Seconds (25.6-37.1) 05/30/17 17:30 - Constitutional Appears: Non-toxic, No Acute Distress - Head Exam Head Exam: ATRAUMATIC, NORMAL INSPECTION, NORMOCEPHALIC - Neck Exam Additional comments: left submandibular swelling 5x3cm non tender and without erythema - Respiratory Exam Respiratory Exam: Decreased Breath Sounds (L > R bases), Clear to Ausculation Bilateral, NORMAL BREATHING PATTERN - Cardiovascular Exam Cardiovascular Exam: REGULAR RHYTHM, +S1, +S2. absent: Murmur - GI/Abdominal Exam GI & Abdominal Exam: Soft, Normal Bowel Sounds. absent: Tenderness - Extremities Exam Extremities Exam: Pedal Edema (2+ bilaterally) - Back Exam Back Exam: NORMAL INSPECTION - Neurological Exam Neurological Exam: Alert, Awake, Oriented x3 - Psychiatric Exam Psychiatric exam: Normal Affect, Normal Mood - Skin Skin Exam: Dry, Intact, Normal Color, Warm Assessment and Plan - Assessment and Plan (Free Text) Assessment: 66 year old male with hx of CKD, chronic pleural effusion, anemia, NIDDM2, HTN presented with complaints of productive cough, fevers/chills and extremity swelling. Patient has 2+ pitting edema of bilateral lower extremities and he has chronic left pleural effusion that has been tapped in the past. Afebrile at this time. Plan: (1) HCAP -given his productive cough empiric tx for HCAP started: zosyn/levaquin ( renally dosed) -CXR official read reviewed, unable to r/o infiltrate -duonebs prn sob (2) Bilateral leg edema likely due to CHF -echo reviewed, unremarkable -B[place] 4k, [place] [address] in 03/2017 -Lasix 40mg daily with 20mg qpm -duplex venous doppler pending -Cardio consulted, appreciate recommendations (3) Proteinuria of undiagnosed cause -UA +protein>500, +glucose>500 -consider 24 hour urine protein to assess proteinuria further -Nephro consulted, appreciate recommendations -likely will need kidney biopsy, though compliance with follow up must be considered. (4) Pleural effusion -had thoracocentesis in the past -appears stable on imaging (5) Anemia -likely combination of anemia of chronic disease (indolent MM) and iron deficiency anemia H.9 (consistent with previous values) iron studies reviewed -TSH:3.5 WNL -vitamin B12 and folate WNL (6) Chronic kidney disease, stage III (moderate) -GFR 36, CrCl 37 (7) Diabetes mellitus type 2 in nonobese -c/w home meds -glucosuria present (8) HTN (hypertension) -Better controlled on home meds, noncompliant prior to arrival -Will continue to monitor (9) Neck growth (left) -non tender will obtain u/s for further evaluation (10) DVT prophylaxis -Heparin 5000 SC q8H due to renal failure
--- NOTE | 2017-06-01 11:36 | US ---
PROCEDURE: Bilateral lower extremity venous duplex Doppler. HISTORY: b/l lower extremity swelling COMPARISON: None available. TECHNIQUE: Bilateral common femoral, superficial femoral, popliteal and posterior tibial veins were evaluated. Flow was assessed with color Doppler, compressibility, assessment of phasic flow and augmentation response. FINDINGS: COMMON FEMORAL VEIN: Right CFV: Unremarkable. Left CFV: Unremarkable. SUPERFICIAL FEMORAL VEIN: Right SFV: Unremarkable. Left SFV: Unremarkable. POPLITEAL VEIN: Right Popliteal: Unremarkable. Left Popliteal: Unremarkable. POSTERIOR TIBIAL VEIN: Right PTV: Unremarkable. Left PTV: Unremarkable. OTHER FINDINGS: Note made of mild diffuse bilateral subcutaneous edema. . Additionally, there are multiple bilateral small to medium size inguinal lymph nodes. . There is an elliptical shaped fluid collection in the right popliteal fossa measuring 4.3 x 1.4 x 2.45 cm most consistent with a Balderrama cyst. Bilateral inguinal lymph nodes. IMPRESSION: No evidence of deep venous thrombosis. . Subcutaneous edema. Balderrama's cyst right popliteal fossa as above.
[2017-06-01] MEDS ORDERED: EPOETIN ALFA 10,000 UNIT/ML ML SC ONE (13:51)
--- NOTE | 2017-06-01 13:54 | CP.PCM.PN ---
Subjective - Date & Time of Evaluation Date of Evaluation: 06/01/17 Time of Evaluation: 13:00 - Subjective Subjective: 66 yo M w/ pmh of htn, dm, CHF, and CKD IIIB, admitted with possible pneumonia; Patient somnolent but denies any pain, shortness of breath, nausea/vomiting; Objective - Vital Signs/Intake and Output Vital Signs (last 24 hours): Temp Pulse Resp BP Pulse Ox 98 F 74 18 127/66 95 06/01/17 12:24 06/01/17 13:15 06/01/17 12:24 06/01/17 13:15 06/01/17 12:24 - Medications Medications: Current Medications Amlodipine Besylate (Norvasc) 10 mg PO DAILY [facility] Last Admin: 06/01/17 09:19 Dose: 10 mg Aspirin (Ecotrin) 81 mg PO DAILY [facility] Last Admin: 06/01/17 09:03 Dose: 81 mg Atorvastatin Calcium (Lipitor) 40 mg PO DAILY [facility] Last Admin: 06/01/17 09:17 Dose: 40 mg Calcium Acetate (Phoslo) 1,334 mg PO WM [facility] Last Admin: 06/01/17 13:15 Dose: 1,334 mg Clonidine HCl (Catapres) 0.1 mg PO BID [facility] Last Admin: 06/01/17 09:02 Dose: 0.1 mg Epoetin Roel (Procrit) 10,000 unit SC ONCE ONE Stop: 06/01/17 13:52 Furosemide (Lasix) 40 mg PO DAILY [facility] Last Admin: 06/01/17 10:45 Dose: 40 mg Gabapentin (Neurontin) 100 mg PO BID [facility] Last Admin: 06/01/17 09:17 Dose: 100 mg Glipizide (Glucotrol) 10 mg PO ACD [facility] Last Admin: 05/31/17 18:14 Dose: 10 mg Glipizide (Glucotrol) 15 mg PO ACB [facility] Last Admin: 06/01/17 08:17 Dose: 15 mg Heparin Sodium (Porcine) (Heparin) 5,000 units SC Q8 [facility] PRN Reason: Protocol Last Admin: 06/01/17 09:18 Dose: 5,000 units Hydralazine HCl (Apresoline) 100 mg PO TID [facility] Last Admin: 06/01/17 13:15 Dose: 100 mg Piperacillin Sod/Tazobactam (Sod 2.25 gm/ Sodium Chloride) 100 mls @ 100 mls/ hr IVPB Q6 [facility] PRN Reason: Protocol Stop: 06/01/17 14:00 Last Admin: 06/01/17 10:55 Dose: 100 mls/hr Levofloxacin/Dextrose (Levaquin 750mg) 750 mg in 150 mls @ 100 mls/hr IVPB QOD [facility] Piperacillin Sod/Tazobactam (Sod 2.25 gm/ Sodium Chloride) 50 mls @ 50 mls/hr IVPB Q6 [facility] PRN Reason: Protocol Lisinopril (Zestril) 10 mg PO DAILY [facility] Last Admin: 06/01/17 09:20 Dose: 10 mg Metoprolol Succinate (Toprol Xl) 25 mg PO DAILY [facility] Last Admin: 06/01/17 09:20 Dose: 25 mg Mirtazapine (Remeron) 30 mg PO HS [facility] Last Admin: 05/31/17 21:31 Dose: 30 mg Risperidone (Risperdal Tab) 3 mg PO HS [facility] Last Admin: 05/31/17 21:31 Dose: 3 mg Tramadol HCl (Ultram) 50 mg PO Q6 PRN PRN Reason: Pain, moderate (4-7) - Labs Labs: 06/01/17 05:30 06/01/17 05:30 PT 10.4 Seconds (9.8-13.1) 05/30/17 17:30 INR 0.9 (0.9-1.2) 05/30/17 17:30 APTT 35.2 Seconds (25.6-37.1) 05/30/17 17:30 - Constitutional Appears: Non-toxic, No Acute Distress - Eye Exam Eye Exam: absent: Scleral icterus - ENT Exam ENT Exam: Mucous Membranes Moist - Neck Exam Additional comments: Swollen L jaw, non-tender, non-erythematous; - Respiratory Exam Respiratory Exam: Clear to Ausculation Bilateral Additional comments: markedly decreased sounds on L; - Cardiovascular Exam Cardiovascular Exam: RRR, +S1, +S2 - GI/Abdominal Exam GI & Abdominal Exam: Soft. absent: Distended, Tenderness - Exam Exam: Bladder Distension - Extremities Exam Additional comments: 2+ b/l lower leg edema; - Neurological Exam Neurological Exam: Alert, Awake Additional comments: slow to answer questions; - Psychiatric Exam Psychiatric exam: absent: Agitated - Skin Skin Exam: Warm. absent: Cyanosis Assessment and Plan (1) Acute kidney injury superimposed on chronic kidney disease Assessment & Plan: CHINTAN on CKD IIIB; likely hemodynamically mediated due to diuretics and also from drop in BP; otherwise relatively stable electrolyte and volume status; -Decrease diuretics to lasix PO 40 mg in am and 20 mg in pm; Status: Acute (2) Nephrotic syndrome Assessment & Plan: As mentioned in consult, multiple possible causes exist including monoclonal gammopathy; patient would benefit from renal biopsy although his outpatient f/u is questionable; -plan for IR biopsy (patient was agreeable yesterday, not very coherent today); -continue lisinopril 10 mg daily for anti-proteinuric effect, will try to titrate higher as tolerated; -continue with heparin subcu for DVT prophylaxis Status: Acute (3) Hypertensive CKD (chronic kidney disease) Assessment & Plan: BP improved although somewhat quickly; patient with questionable med compliance ; will change hydralazine to bid dosing; will try to titrate off clonidine and titrate up lisinopril; Status: Acute (4) Anemia of renal disease Assessment & Plan: Hgb dropping; relatively iron replete; -checking stool for occult blood -giving dose of EPO 10,000 u Status: Acute (5) Chronic kidney disease-mineral and bone disorder Assessment & Plan: Awaiting PTH and vit D 25-OH levels; on phoslo 2 tabs w/ meals, phos controlled , continue; Status: Acute (6) CHF (congestive heart failure) Assessment & Plan: Relatively euvolemic on exam; diuretics as above; Status: Acute
[2017-06-01] MEDS: Piperacillin/Tazobact 2.25 GM in Sodium Chloride 0.9% 50 ML IVPB SCH ×2 (16:42→21:28)
[2017-06-02] MEDS: Albuterol-Ipratrop 3 mg / 0.5 (3 ml) UD INH PRN (01:03)
[2017-06-02] MEDS: Piperacillin/Tazobact 2.25 GM in Sodium Chloride 0.9% 50 ML IVPB SCH ×4 (04:19→22:15)
[2017-06-02] MEDS ORDERED: guaiFENesin DM 200 mg-20 mg/10 ml UD PO PRN (06:36)
[2017-06-02] MEDS: Calcium Acetate 667 MG Capsule PO SCH ×3 (08:14→19:07)
[2017-06-02] MEDS ORDERED: levoFLOXacin 750 mg in D5W 150 ML BAG IVPB SCH (09:00)
--- NOTE | 2017-06-02 09:33 | CP.PCM.PN ---
Subjective - Date & Time of Evaluation Date of Evaluation: 06/02/17 Time of Evaluation: 08:15 - Subjective Subjective: Pt sitting OOB comfortable Shows evidence of volume overload (Pleural effusions, pedal oedema) due to hypoalbuminemia, due to (?) neprotic syndr Echo shows preserved LV function (Doubt CHF) Abn EKG (Prolonged QTc) is due to Resperdal (K+ normal) Stable from cardiac point of view. Objective - Vital Signs/Intake and Output Vital Signs (last 24 hours): Temp Pulse Resp BP Pulse Ox 98.9 F 76 18 154/56 H 94 L 06/02/17 08:00 06/02/17 08:00 06/02/17 08:00 06/02/17 08:00 06/02/17 08:00 - Medications Medications: Current Medications Albuterol/Ipratropium (Duoneb 3 Mg/0.5 Mg (3 Ml) Ud) 3 ml INH RQ6 PRN PRN Reason: Shortness of Breath Last Admin: 06/02/17 01:03 Dose: 3 ml Amlodipine Besylate (Norvasc) 10 mg PO DAILY [facility] Last Admin: 06/01/17 09:19 Dose: 10 mg Aspirin (Ecotrin) 81 mg PO DAILY [facility] Last Admin: 06/01/17 09:03 Dose: 81 mg Atorvastatin Calcium (Lipitor) 40 mg PO DAILY [facility] Last Admin: 06/01/17 09:17 Dose: 40 mg Calcium Acetate (Phoslo) 1,334 mg PO WM [facility] Last Admin: 06/01/17 17:58 Dose: 1,334 mg Clonidine HCl (Catapres) 0.1 mg PO DAILY [facility] Docusate Sodium (Colace) 100 mg PO BID [facility] Last Admin: 06/01/17 18:27 Dose: Not Given Ergocalciferol (Drisdol 50,000 Intl Units Cap) 1 cap PO Q7D [facility] Furosemide (Lasix) 40 mg PO DAILY [facility] Last Admin: 06/01/17 10:45 Dose: 40 mg Furosemide (Lasix) 20 mg PO QPM [facility] Last Admin: 06/01/17 18:27 Dose: Not Given Gabapentin (Neurontin) 100 mg PO BID [facility] Last Admin: 06/01/17 16:45 Dose: 100 mg Glipizide (Glucotrol) 10 mg PO ACD [facility] Last Admin: 06/01/17 16:46 Dose: 10 mg Glipizide (Glucotrol) 15 mg PO ACB [facility] Last Admin: 06/01/17 08:17 Dose: 15 mg Guaifenesin/Dextromethorphan (Robitussin Dm) 10 ml PO Q6 PRN PRN Reason: Cough Heparin Sodium (Porcine) (Heparin) 5,000 units SC Q8 [facility] PRN Reason: Protocol Last Admin: 06/02/17 00:21 Dose: Not Given Hydralazine HCl (Apresoline) 100 mg PO BID [facility] Last Admin: 06/01/17 16:46 Dose: 100 mg Piperacillin Sod/Tazobactam (Sod 2.25 gm/ Sodium Chloride) 50 mls @ 50 mls/hr IVPB Q6 [facility] PRN Reason: Protocol Last Admin: 06/02/17 04:19 Dose: Not Given Levofloxacin/Dextrose (Levaquin 750mg) 750 mg IVPB QOTHERDAY [facility] Lisinopril (Zestril) 10 mg PO DAILY [facility] Last Admin: 06/01/17 09:20 Dose: 10 mg Metoprolol Succinate (Toprol Xl) 25 mg PO DAILY [facility] Last Admin: 06/01/17 09:20 Dose: 25 mg Mirtazapine (Remeron) 30 mg PO HS [facility] Last Admin: 06/01/17 21:27 Dose: Not Given Risperidone (Risperdal Tab) 3 mg PO HS [facility] Last Admin: 06/01/17 21:27 Dose: Not Given Tramadol HCl (Ultram) 50 mg PO Q6 PRN PRN Reason: Pain, moderate (4-7) - Labs Labs: 06/01/17 05:30 06/01/17 05:30 PT 10.4 Seconds (9.8-13.1) 05/30/17 17:30 INR 0.9 (0.9-1.2) 05/30/17 17:30 APTT 35.2 Seconds (25.6-37.1) 05/30/17 17:30
[2017-06-02] MEDS ORDERED: levoFLOXacin 750 mg in D5W 750 MG/150 ML BAG IVPB SCH (09:45)
[2017-06-02 10:56] LABS: BASO # 0.1 K/uL (0.0-0.2); BASO % 0.6 % (0.0-2.0); EOS # 0.1 K/uL (0.0-0.7); EOS % 0.9 % (0.0-4.0); HEMATOCRIT 24.5 % (35.0-51.0); LYMPH # 1.6 K/uL (1.0-4.3); LYMPH % 16.3 % (20.0-40.0); MEAN CELL VOLUME 94.7 fl (80.0-94.0); MEAN CORPUSCULAR HGB CONC 32.7 g/dL (33.0-37.0); MEAN PLATELET VOLUME 10.8 fl (7.2-11.7); MONO # 0.6 K/uL (0.0-0.8); MONO % 6.3 % (0.0-10.0); NEUT # 7.4 K/uL (1.8-7.0); NEUT % 75.9 % (50.0-75.0); RED CELL DISTRIBUTION WIDTH 15.2 % (11.5-14.5); WHITE BLOOD COUNT 9.8 K/uL (4.8-10.8)
--- NOTE | 2017-06-02 11:55 | RAD ---
PROCEDURE: CHEST RADIOGRAPH, 1 VIEW HISTORY: cough COMPARISON: 05/30/2017. FINDINGS: LUNGS: Persistent consolidative changes/ compressive atelectasis primarily affecting the left lower lobe. PLEURA: Stable large left pleural effusion. CARDIOVASCULAR: Normal. OSSEOUS STRUCTURES: No significant abnormalities. VISUALIZED UPPER ABDOMEN: Normal. OTHER FINDINGS: None. IMPRESSION: No significant interval change compared to the prior examination(s). Persistent consolidative changes primarily affecting left lower lobe and large left pleural effusion.
[2017-06-02 12:05] LABS: ALB/GLOB RATIO 0.9 (1.0-2.1); ALKALINE PHOSPHATASE 102 U/L (38-126); ALT/SGPT 40 U/L (21-72); AST/SGOT 23 U/L (17-59); BILIRUBIN,TOTAL < 0.1 mg/dl (0.2-1.3); BLOOD UREA NITROGEN 44 mg/dl (9-20); CALCIUM 7.4 mg/dL (8.4-10.2); CARBON DIOXIDE 22 mmol/L (22-30); CHLORIDE 114 mmol/L (98-107); GFR AFRICAN-AMERICAN 31; GLUCOSE,RANDOM 162 mg/dL (75-110); POTASSIUM 4.3 MMOL/L (3.6-5.0); SODIUM 141 mmol/l (132-148); TOTAL PROTEIN 4.7 G/DL (6.3-8.2)
[2017-06-02] MEDS ORDERED: Artificial Tears Opht Soln OU PRN (14:50)
[2017-06-02] MEDS: Ergocalciferol 50,000 Intl Units Cap PO SCH (15:13)
[2017-06-02] MEDS: Metoprolol Succinate 25 mg XL Tab PO SCH (15:15)
--- NOTE | 2017-06-02 15:16 | CP.PCM.PN ---
Subjective - Date & Time of Evaluation Date of Evaluation: 06/02/17 Time of Evaluation: 09:00 - Subjective Subjective: Patient seen and evaluated at the bedside this morning. States he still has an occasional cough that is unchanged from yesterday. Worse at night. Denies SOB, chest pain, fever, chills. Objective - Vital Signs/Intake and Output Vital Signs (last 24 hours): Temp Pulse Resp BP Pulse Ox 99.3 F 79 18 145/65 98 06/02/17 12:19 06/02/17 12:19 06/02/17 12:19 06/02/17 12:19 06/02/17 12:19 - Medications Medications: Current Medications Albuterol/Ipratropium (Duoneb 3 Mg/0.5 Mg (3 Ml) Ud) 3 ml INH RQ6 PRN PRN Reason: Shortness of Breath Last Admin: 06/02/17 01:03 Dose: 3 ml Amlodipine Besylate (Norvasc) 10 mg PO DAILY [facility] Last Admin: 06/01/17 09:19 Dose: 10 mg Artificial Tears (Artificial Tears) 2 drop OU Q4 PRN PRN Reason: Dry eyes Aspirin (Ecotrin) 81 mg PO DAILY [facility] Last Admin: 06/01/17 09:03 Dose: 81 mg Atorvastatin Calcium (Lipitor) 40 mg PO DAILY [facility] Last Admin: 06/01/17 09:17 Dose: 40 mg Calcium Acetate (Phoslo) 1,334 mg PO WM [facility] Last Admin: 06/01/17 17:58 Dose: 1,334 mg Clonidine HCl (Catapres) 0.1 mg PO DAILY [facility] Docusate Sodium (Colace) 100 mg PO BID [facility] Last Admin: 06/01/17 18:27 Dose: Not Given Ergocalciferol (Drisdol 50,000 Intl Units Cap) 1 cap PO Q7D [facility] Furosemide (Lasix) 40 mg PO DAILY [facility] Last Admin: 06/01/17 10:45 Dose: 40 mg Furosemide (Lasix) 20 mg PO QPM [facility] Last Admin: 06/01/17 18:27 Dose: Not Given Gabapentin (Neurontin) 100 mg PO BID [facility] Last Admin: 06/01/17 16:45 Dose: 100 mg Glipizide (Glucotrol) 10 mg PO ACD [facility] Last Admin: 06/01/17 16:46 Dose: 10 mg Glipizide (Glucotrol) 15 mg PO ACB [facility] Last Admin: 06/01/17 08:17 Dose: 15 mg Guaifenesin/Dextromethorphan (Robitussin Dm) 10 ml PO Q6 PRN PRN Reason: Cough Heparin Sodium (Porcine) (Heparin) 5,000 units SC Q8 [facility] PRN Reason: Protocol Last Admin: 06/02/17 00:21 Dose: Not Given Hydralazine HCl (Apresoline) 100 mg PO BID [facility] Last Admin: 06/01/17 16:46 Dose: 100 mg Piperacillin Sod/Tazobactam (Sod 2.25 gm/ Sodium Chloride) 50 mls @ 50 mls/hr IVPB Q6 [facility] PRN Reason: Protocol Last Admin: 06/02/17 04:19 Dose: Not Given Levofloxacin/Dextrose (Levaquin 750mg) 750 mg in 150 mls @ 100 mls/hr IVPB QOD [facility] Lisinopril (Zestril) 10 mg PO DAILY [facility] Last Admin: 06/01/17 09:20 Dose: 10 mg Metoprolol Succinate (Toprol Xl) 25 mg PO DAILY [facility] Last Admin: 06/01/17 09:20 Dose: 25 mg Mirtazapine (Remeron) 30 mg PO HS [facility] Last Admin: 06/01/17 21:27 Dose: Not Given Risperidone (Risperdal Tab) 3 mg PO HS [facility] Last Admin: 06/01/17 21:27 Dose: Not Given Tramadol HCl (Ultram) 50 mg PO Q6 PRN PRN Reason: Pain, moderate (4-7) - Labs Labs: 06/02/17 10:30 06/02/17 10:30 PT 10.4 Seconds (9.8-13.1) 05/30/17 17:30 INR 0.9 (0.9-1.2) 05/30/17 17:30 APTT 35.2 Seconds (25.6-37.1) 05/30/17 17:30 - Constitutional Appears: Well, Non-toxic, No Acute Distress - Head Exam Head Exam: ATRAUMATIC, NORMAL INSPECTION - Eye Exam Eye Exam: Normal appearance, PERRL. absent: Conjunctival injection, Nystagmus, Periorbital swelling Pupil Exam: NORMAL ACCOMODATION. absent: Miosis, Mydriatic - ENT Exam ENT Exam: Mucous Membranes Moist - Respiratory Exam Respiratory Exam: Clear to Ausculation Bilateral. absent: Accessory Muscle Use , Chest Wall Tenderness, Rales, Wheezes Assessment and Plan - Assessment and Plan (Free Text) Assessment: Assessment: 66 year old male with hx of CKD, chronic pleural effusion, anemia, NIDDM2, HTN presented with complaints of productive cough, fevers/chills and extremity swelling. Patient has 2+ pitting edema of bilateral lower extremities and he has chronic left pleural effusion that has been tapped in the past. Afebrile at this time. Patient reporting acute onset of blurry vision today. Plan: # HCAP -Afebrile, no leukocytosis, symptoms improving -C/W zosyn/levaquin (renally dosed) -Repeat Cxray (06/02): Left-sided pleural effusion stable, no acute changes -duonebs prn sob # Bilateral leg edema likely due to CHF -Euvolemic on exam. Echo reviewed, unremarkable -BNP 4k, [place] [address] in 03/2017 -Lasix 40mg daily with 20mg qpm -BL duplex doppler negative for DVT -Cardio consulted- Prolonged QT on EKG findings due to pt antipsychotic medication -PT consult placed # Proteinuria of undiagnosed cause -UA +protein>500, +glucose>500 -consider 24 hour urine protein to assess proteinuria further -Nephro consulted- Will likely need kidney biopsy to evaluate cause of nephrotic syndrome, possible IR biopsy in house. C/w lisinopril 10mg and consider titrating up. Hydralazine changed to BID. Started on EPO for Anemia and phoslo for phosophate. -IR consulted: plan for IR tomorrow if possible -F/U PTH, Vit D levels -UCx positive for Staph Epidermis, >100k. No urinary symptoms. U/A negative likely contaminated. Will repeat U/A and UCx #Blurry Vision, new onset -Physical exam unremarkable. No other focal neurological deficits. No prior hx of CVA -Artificial tears BID, Neurochecks q12 -Head CT ordered -Neuro consulted # Anemia -likely combination of anemia of chronic disease (indolent MM) and iron deficiency anemia -H.9 (consistent with previous values) -Iron studies reviewed -TSH:3.5 WNL -vitamin B12 and folate WNL -EPO SC qdaily # Pleural effusion, stable -had thoracocentesis in the past -appears stable on imaging #Chronic kidney disease, stage III (moderate) -GFR 36, CrCl 37 #Diabetes mellitus type 2 in nonobese -c/w home meds -glucosuria present # HTN (hypertension) -Better controlled on home meds, noncompliant prior to arrival -Will continue to monitor #Neck growth (left) -Mass resolved. -F/U Neck Soft Tissue U/S #DVT prophylaxis -Heparin 5000 SC q8H due to renal failure
--- NOTE | 2017-06-02 16:33 | US ---
PROCEDURE: Limited ultrasound of the right submandibular region HISTORY: Right neck mass COMPARISON: None TECHNIQUE: Limited high-resolution ultrasound of the right submandibular region was performed at the site of swelling. FINDINGS: There is diffuse subcutaneous edema and prominent submandibular lymph node. There is also increased vascularity in the right submandibular gland. No evidence of drainable fluid collection or abscess. IMPRESSION: Diffuse right sided subcutaneous edema and prominent submandibular lymph node as well as hypervascular submandibular gland. No evidence of abscess or drainable fluid collection
--- NOTE | 2017-06-02 18:18 | CP.PCM.CON ---
History of Present Illness - History of Present Illness History of Present Illness: Mr. Durand is a 66-year-old homeless man with a past medical history of HTN, NIIDM2, CKD stage 3, depression, who was admitted for subjective fevers and URI. The patient was being evaluated by PT today, when he suddenly complained of bilateral loss of vision. He had no other complaints, then said his vision was blurry despite being able to count fingers and see colors appropriately. There was concern that this could be a stroke and CT scan of the head was ordered, but the patient refused to go for the study. Review of Systems - Review of Systems All systems: reviewed and no additional remarkable complaints except Past Patient History - Infectious Disease Hx of Infectious Diseases: None - Tetanus Immunizations Tetanus Immunization: Unknown - Past Medical History & Family History Past Medical History?: Yes - Past Social History Alcohol: None Drugs: Denies - CARDIAC Hx Hypertension: Yes - PULMONARY Hx Respiratory Disorders: Yes (COPD) - NEUROLOGICAL Hx Neurological Disorder: No - HEENT Hx HEENT Problems: No - RENAL Hx Chronic Kidney Disease: Yes - ENDOCRINE/METABOLIC Hx Diabetes Mellitus Type 2: Yes - HEMATOLOGICAL/ONCOLOGICAL Hx Blood Disorders: No - INTEGUMENTARY Hx Dermatological Problems: No - MUSCULOSKELETAL/RHEUMATOLOGICAL Hx Musculoskeletal Disorders: Yes (arthritis) - GASTROINTESTINAL Hx Gastrointestinal Disorders: No - GENITOURINARY/GYNECOLOGICAL Hx Genitourinary Disorders: No - PSYCHIATRIC Hx Psychophysiologic Disorder: Yes (bipolar, depression, anxiety) - SURGICAL HISTORY Hx Surgeries: No - ANESTHESIA Hx Anesthesia: Yes Hx Anesthesia Reactions: No Hx Malignant Hyperthermia: No Meds Allergies/Adverse Reactions: Allergies Allergy/AdvReac Type Severity Reaction Status Date / Time No Known Allergies Allergy Verified 05/21/17 16:02 - Medications Medications: Current Medications Albuterol/Ipratropium (Duoneb 3 Mg/0.5 Mg (3 Ml) Ud) 3 ml INH RQ6 PRN PRN Reason: Shortness of Breath Last Admin: 06/02/17 01:03 Dose: 3 ml Amlodipine Besylate (Norvasc) 10 mg PO DAILY [facility] Last Admin: 06/02/17 15:11 Dose: 10 mg Artificial Tears (Artificial Tears) 2 drop OU Q4 PRN PRN Reason: Dry eyes Last Admin: 06/02/17 15:09 Dose: 2 drop Aspirin (Ecotrin) 81 mg PO DAILY [facility] Last Admin: 06/02/17 15:10 Dose: 81 mg Atorvastatin Calcium (Lipitor) 40 mg PO DAILY [facility] Last Admin: 06/02/17 15:12 Dose: 40 mg Calcium Acetate (Phoslo) 1,334 mg PO WM [facility] Last Admin: 06/02/17 13:10 Dose: Not Given Clonidine HCl (Catapres) 0.1 mg PO DAILY [facility] Last Admin: 06/02/17 09:18 Dose: Not Given Docusate Sodium (Colace) 100 mg PO BID [facility] Last Admin: 06/02/17 15:09 Dose: 100 mg Ergocalciferol (Drisdol 50,000 Intl Units Cap) 1 cap PO Q7D [facility] Last Admin: 06/02/17 15:13 Dose: 1 cap Furosemide (Lasix) 40 mg PO DAILY [facility] Last Admin: 06/02/17 15:14 Dose: 40 mg Furosemide (Lasix) 20 mg PO QPM [facility] Last Admin: 06/01/17 18:27 Dose: Not Given Gabapentin (Neurontin) 100 mg PO BID [facility] Last Admin: 06/02/17 09:11 Dose: Not Given Glipizide (Glucotrol) 10 mg PO ACD [facility] Last Admin: 06/01/17 16:46 Dose: 10 mg Glipizide (Glucotrol) 15 mg PO ACB [facility] Last Admin: 06/02/17 08:13 Dose: Not Given Guaifenesin/Dextromethorphan (Robitussin Dm) 10 ml PO Q6 PRN PRN Reason: Cough Heparin Sodium (Porcine) (Heparin) 5,000 units SC Q8 [facility] PRN Reason: Protocol Last Admin: 06/02/17 09:13 Dose: Not Given Hydralazine HCl (Apresoline) 100 mg PO BID [facility] Last Admin: 06/02/17 09:10 Dose: Not Given Piperacillin Sod/Tazobactam (Sod 2.25 gm/ Sodium Chloride) 50 mls @ 50 mls/hr IVPB Q6 [facility] PRN Reason: Protocol Last Admin: 06/02/17 15:17 Dose: 50 mls/hr Levofloxacin/Dextrose (Levaquin 750mg) 750 mg in 150 mls @ 100 mls/hr IVPB QOD [facility] Lisinopril (Zestril) 10 mg PO DAILY [facility] Last Admin: 06/02/17 15:17 Dose: 10 mg Metoprolol Succinate (Toprol Xl) 25 mg PO DAILY [facility] Last Admin: 06/02/17 15:15 Dose: 25 mg Mirtazapine (Remeron) 30 mg PO HS [facility] Last Admin: 06/01/17 21:27 Dose: Not Given Risperidone (Risperdal Tab) 3 mg PO HS [facility] Last Admin: 06/01/17 21:27 Dose: Not Given Tramadol HCl (Ultram) 50 mg PO Q6 PRN PRN Reason: Pain, moderate (4-7) Physical Exam - Constitutional Appears: Well - Head Exam Head Exam: ATRAUMATIC, NORMAL INSPECTION, NORMOCEPHALIC - Eye Exam Eye Exam: EOMI, Normal appearance, PERRL - ENT Exam ENT Exam: Mucous Membranes Moist, Normal Exam - Neck Exam Neck exam: Positive for: Normal Inspection - Respiratory Exam Respiratory Exam: Clear to Auscultation Bilateral, NORMAL BREATHING PATTERN - Cardiovascular Exam Cardiovascular Exam: REGULAR RHYTHM - GI/Abdominal Exam GI & Abdominal Exam: Normal Bowel Sounds, Soft. absent: Tenderness - Rectal Exam Rectal Exam: Deferred - Extremities Exam Extremities exam: Positive for: normal inspection - Back Exam Back exam: NORMAL INSPECTION - Neurological Exam Neurological exam: Alert, CN II-XII Intact, Normal Gait, Oriented x3, Reflexes Normal Additional comments: With eyes closed the patient cannot find his nose. He is able to count fingers accurately to confrontation. He did not attempt visual acuity testing and complained about needing to use the bathroom despite urinating prior to my arrival. Results - Vital Signs Recent Vital Signs: Last Vital Signs Temp 98.9 F 06/02/17 15:54 Pulse 81 06/02/17 16:17 Resp 20 06/02/17 15:54 BP 166/66 H 06/02/17 15:54 Pulse Ox 94 L 06/02/17 16:17 - Labs Result Diagrams: 06/02/17 10:30 06/02/17 10:30 Labs: Laboratory Results - last 24 hr 06/01/17 06/01/17 06/02/17 05:30 21:08 05:23 WBC RBC Hgb Hct MCV MCH MCHC RDW Plt Count MPV Neut % (Auto) Lymph % (Auto) [place] % (Auto) Eos % (Auto) Baso % (Auto) Neut # Lymph # [place] # Eos # Baso # Sodium Potassium Chloride Carbon Dioxide Anion Gap BUN Creatinine Est GFR ( Amer) Est GFR (Non-Af Amer) POC Glucose (mg/dL) 159 H 76 Random Glucose Calcium Total Bilirubin AST ALT Alkaline Phosphatase Total Protein Albumin Globulin Albumin/Globulin Ratio PTH w/Ion &Tot Calcium 84 H 06/02/17 06/02/17 06/02/17 10:30 10:30 11:26 WBC 9.8 RBC 2.58 L Hgb 8.0 L Hct 24.5 L MCV 94.7 H MCH 31.0 MCHC 32.7 L RDW 15.2 H Plt Count 177 MPV 10.8 Neut % (Auto) 75.9 H Lymph % (Auto) 16.3 L [place] % (Auto) 6.3 Eos % (Auto) 0.9 Baso % (Auto) 0.6 Neut # 7.4 H Lymph # 1.6 [place] # 0.6 Eos # 0.1 Baso # 0.1 Sodium 141 Potassium 4.3 Chloride 114 H Carbon Dioxide 22 Anion Gap 9 L BUN 44 H Creatinine 2.5 H Est GFR ( Amer) 31 Est GFR (Non-Af Amer) 26 POC Glucose (mg/dL) 191 H Random Glucose 162 H Calcium 7.4 L Total Bilirubin < 0.1 L AST 23 ALT 40 Alkaline Phosphatase 102 Total Protein 4.7 L Albumin 2.3 L Globulin 2.4 Albumin/Globulin Ratio 0.9 L PTH w/Ion &Tot Calcium 06/02/17 16:34 WBC RBC Hgb Hct MCV MCH MCHC RDW Plt Count MPV Neut % (Auto) Lymph % (Auto) [place] % (Auto) Eos % (Auto) Baso % (Auto) Neut # Lymph # [place] # Eos # Baso # Sodium Potassium Chloride Carbon Dioxide Anion Gap BUN Creatinine Est GFR ( Amer) Est GFR (Non-Af Amer) POC Glucose (mg/dL) 168 H Random Glucose Calcium Total Bilirubin AST ALT Alkaline Phosphatase Total Protein Albumin Globulin Albumin/Globulin Ratio PTH w/Ion &Tot Calcium Assessment & Plan (1) Blurry vision, bilateral Assessment and Plan: This may be malingering, but a CT scan of the head may be obtained for further evaluation. Continue current medications, including aspirin 81 mg daily. Start lipitor 20 mg daily. Check lipids, HbA1c, B12, folate, TSH. Case management consult. youth accommodation support worker consult. Thank you. Status: Acute Priority: High
--- NOTE | 2017-06-02 21:42 | CP.PCM.PN ---
Subjective - Date & Time of Evaluation Date of Evaluation: 06/02/17 Time of Evaluation: 13:00 - Subjective Subjective: Patient reporting new decreased vision bilaterally; Objective - Vital Signs/Intake and Output Vital Signs (last 24 hours): Temp Pulse Resp BP Pulse Ox 98 F 74 20 165/68 H 95 06/02/17 19:54 06/02/17 19:54 06/02/17 19:54 06/02/17 19:54 06/02/17 19:54 - Medications Medications: Current Medications Albuterol/Ipratropium (Duoneb 3 Mg/0.5 Mg (3 Ml) Ud) 3 ml INH RQ6 PRN PRN Reason: Shortness of Breath Last Admin: 06/02/17 01:03 Dose: 3 ml Amlodipine Besylate (Norvasc) 10 mg PO DAILY [facility] Last Admin: 06/02/17 15:11 Dose: 10 mg Artificial Tears (Artificial Tears) 2 drop OU Q4 PRN PRN Reason: Dry eyes Last Admin: 06/02/17 15:09 Dose: 2 drop Aspirin (Ecotrin) 81 mg PO DAILY [facility] [place] Last Admin: 06/02/17 15:10 Dose: 81 mg Atorvastatin Calcium (Lipitor) 40 mg PO DAILY [facility] [place] Last Admin: 06/02/17 15:12 Dose: 40 mg Calcium Acetate (Phoslo) 1,334 mg PO WM [facility] [place] Last Admin: 06/02/17 19:07 Dose: 1,334 mg Clonidine HCl (Catapres) 0.1 mg PO DAILY [facility] [place] Last Admin: 06/02/17 09:18 Dose: Not Given Docusate Sodium (Colace) 100 mg PO BID [facility] [place] Last Admin: 06/02/17 19:05 Dose: 100 mg Ergocalciferol (Drisdol 50,000 Intl Units Cap) 1 cap PO Q7D [facility] [place] Last Admin: 06/02/17 15:13 Dose: 1 cap Furosemide (Lasix) 40 mg PO DAILY [facility] [place] Last Admin: 06/02/17 15:14 Dose: 40 mg Furosemide (Lasix) 20 mg PO QPM [facility] [place] Last Admin: 06/02/17 19:08 Dose: 20 mg Gabapentin (Neurontin) 100 mg PO BID [facility] [place] Last Admin: 06/02/17 19:07 Dose: 100 mg Glipizide (Glucotrol) 10 mg PO ACD [facility] [place] Last Admin: 06/02/17 17:06 Dose: Not Given Glipizide (Glucotrol) 15 mg PO ACB [facility] [place] Last Admin: 06/02/17 08:13 Dose: Not Given Guaifenesin/Dextromethorphan (Robitussin Dm) 10 ml PO Q6 PRN PRN Reason: Cough Heparin Sodium (Porcine) (Heparin) 5,000 units SC Q8 [facility] PRN Reason: Protocol Last Admin: 06/02/17 19:06 Dose: Not Given Hydralazine HCl (Apresoline) 100 mg PO BID [facility] [place] Last Admin: 06/02/17 19:04 Dose: 100 mg Piperacillin Sod/Tazobactam (Sod 2.25 gm/ Sodium Chloride) 50 mls @ 50 mls/hr IVPB Q6 [facility] PRN Reason: Protocol Last Admin: 06/02/17 15:17 Dose: 50 mls/hr Levofloxacin/Dextrose (Levaquin 750mg) 750 mg in 150 mls @ 100 mls/hr IVPB QOD [facility] Lisinopril (Zestril) 10 mg PO DAILY [facility] [place] Last Admin: 06/02/17 15:17 Dose: 10 mg Metoprolol Succinate (Toprol Xl) 25 mg PO DAILY [facility] [place] Last Admin: 06/02/17 15:15 Dose: 25 mg Mirtazapine (Remeron) 30 mg PO HS [facility] [place] Last Admin: 06/01/17 21:27 Dose: Not Given Risperidone (Risperdal Tab) 3 mg PO HS [facility] [place] Last Admin: 06/01/17 21:27 Dose: Not Given - Labs Labs: 06/02/17 10:30 06/02/17 10:30 PT 10.4 Seconds (9.8-13.1) 05/30/17 17:30 INR 0.9 (0.9-1.2) 05/30/17 17:30 APTT 35.2 Seconds (25.6-37.1) 05/30/17 17:30 - Constitutional Appears: Non-toxic, No Acute Distress - Eye Exam Eye Exam: absent: Scleral icterus - ENT Exam ENT Exam: Mucous Membranes Moist - Respiratory Exam Respiratory Exam: absent: Respiratory Distress Additional comments: Decreased breath sounds on L - Cardiovascular Exam Cardiovascular Exam: RRR, +S1, +S2 - GI/Abdominal Exam GI & Abdominal Exam: Soft. absent: Distended, Tenderness - Extremities Exam Additional comments: moderate b/l lower leg edema; - Neurological Exam Neurological Exam: Alert, Awake - Psychiatric Exam Psychiatric exam: absent: Agitated - Skin Skin Exam: Warm. 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 despite some degree of decreased GFR which is expected; Patient ideally needs renal biopsy but until it can be determined whether he will f/u as outpatient (and with whom - I can see the patient but only in [facility]), we will defer biopsy; Status: Acute (2) Nephrotic syndrome Assessment & Plan: As mentioned previously, has multiple possible etiologies and needs renal biopsy ; for now, will increase lisinopril to 20 mg daily for anti-proteinuric effect; Status: Acute (3) Hypertensive CKD (chronic kidney disease) Assessment & Plan: Fluctuating level of BP control (possibly worsened due to EPO administration); increasing lisinopril as above, continue rest of meds; Status: Acute (4) Anemia of renal disease Assessment & Plan: s/p dose of EPO, likely will not be able to receive it as outpatient; continue to monitor periodically; Status: Acute (5) Chronic kidney disease-mineral and bone disorder Assessment & Plan: PTH only mildly elevated; continue ergocalciferol 50,000 u weekly; Status: Acute (6) CHF (congestive heart failure) Status: Acute
[2017-06-02 22:16] LABS: CALCIUM 7.7 mg/dL (8.6-10.3)
[2017-06-03] MEDS: Piperacillin/Tazobact 2.25 GM in Sodium Chloride 0.9% 50 ML IVPB SCH (05:12)
[2017-06-03] MEDS: Metoprolol Succinate 25 mg XL Tab PO SCH (09:00)
[2017-06-03 11:27] LABS: ALB/GLOB RATIO 0.9 (1.0-2.1); ALKALINE PHOSPHATASE 111 U/L (38-126); ALT/SGPT 45 U/L (21-72); AST/SGOT 32 U/L (17-59); BILIRUBIN,TOTAL < 0.1 mg/dl (0.2-1.3); BLOOD UREA NITROGEN 48 mg/dl (9-20); CALCIUM 7.5 mg/dL (8.4-10.2); CARBON DIOXIDE 21 mmol/L (22-30); CHLORIDE 116 mmol/L (98-107); GFR AFRICAN-AMERICAN 29; GLUCOSE,RANDOM 92 mg/dL (75-110); PHOSPHOROUS 6.4 mg/dl (2.5-4.5); POTASSIUM 4.6 MMOL/L (3.6-5.0); SODIUM 141 mmol/l (132-148); TOTAL PROTEIN 4.8 G/DL (6.3-8.2)
--- NOTE | 2017-06-03 11:48 | CT ---
PROCEDURE: CT HEAD WITHOUT CONTRAST. HISTORY: Acute blurry vision BL COMPARISON: Unenhanced head CT 03/31/2017. TECHNIQUE: Axial computed tomography images were obtained through the head/brain without intravenous contrast. Radiation dose: Total exam DLP = 2217.87 mGy-cm. This CT exam was performed using one or more of the following dose reduction techniques: Automated exposure control, adjustment of the mA and/or kV according to patient size, and/or use of iterative reconstruction technique. FINDINGS: HEMORRHAGE: No intracranial hemorrhage. BRAIN: Diffuse expansion of the ventriculosulcal and cisternal spaces is appreciated with white matter lucency compatible with diffuse cerebral atrophy and chronic microangiopathy. Examination appears stable in the interval with no suspicious findings appreciable this time. There is no mass effect or suspicious extra-axial collection. Midline brain anatomy is stable and unremarkable. VENTRICLES: Unremarkable. No hydrocephalus. CALVARIUM: Unremarkable. PARANASAL SINUSES: Unremarkable as visualized. No significant inflammatory changes. MASTOID AIR CELLS: Unremarkable as visualized. No inflammatory changes. OTHER FINDINGS: None. IMPRESSION: Stable unenhanced head CT without suspicious interval findings. Age-related neuro degenerative changes are reiterated.
[2017-06-03 11:49] LABS: THYROID STIMULATING HORMONE 3.71 mIU/ML (0.46-4.68)
--- NOTE | 2017-06-03 14:59 | CP.PCM.PN ---
Subjective - Date & Time of Evaluation Date of Evaluation: 06/03/17 Time of Evaluation: 08:00 - Subjective Subjective: Overnight pt refused Head CT as per nurse. Pt seen and evaluated at the bedside this morning. States he was never asked ot do a head CT and is willing to have the test done now. I informed patient that the plan for him is to get a kidney biopsy and patient verbalized understanding and agreed. Complains of cough that is worse at night. Slowly resolving. States he still has blurry vision but has improved since yesterday. States he also feels generalized weakness but is able to walk with assistance. No other complaints. Objective - Vital Signs/Intake and Output Vital Signs (last 24 hours): Temp Pulse Resp BP Pulse Ox 98.6 F 73 20 136/61 99 06/03/17 13:00 06/03/17 13:00 06/03/17 13:00 06/03/17 13:00 06/03/17 14:32 - Medications Medications: Current Medications Albuterol/Ipratropium (Duoneb 3 Mg/0.5 Mg (3 Ml) Ud) 3 ml INH RQ6 PRN PRN Reason: Shortness of Breath Last Admin: 06/02/17 01:03 Dose: 3 ml Amlodipine Besylate (Norvasc) 10 mg PO DAILY [facility] Last Admin: 06/03/17 09:00 Dose: 10 mg Artificial Tears (Artificial Tears) 2 drop OU Q4 PRN PRN Reason: Dry eyes Last Admin: 06/02/17 15:09 Dose: 2 drop Aspirin (Ecotrin) 81 mg PO DAILY [facility] Last Admin: 06/03/17 10:32 Dose: Not Given Atorvastatin Calcium (Lipitor) 40 mg PO DAILY [facility] Last Admin: 06/03/17 09:00 Dose: 40 mg Calcium Acetate (Phoslo) 1,334 mg PO WM [facility] Last Admin: 06/03/17 13:21 Dose: 1,334 mg Docusate Sodium (Colace) 100 mg PO BID [facility] Last Admin: 06/03/17 09:00 Dose: 100 mg Ergocalciferol (Drisdol 50,000 Intl Units Cap) 1 cap PO Q7D [facility] Last Admin: 06/02/17 15:13 Dose: 1 cap Furosemide (Lasix) 20 mg PO QPM [facility] Last Admin: 06/02/17 19:08 Dose: 20 mg Furosemide (Lasix) 20 mg PO DAILY [facility] Last Admin: 06/03/17 09:00 Dose: 20 mg Gabapentin (Neurontin) 100 mg PO BID [facility] Last Admin: 06/03/17 09:00 Dose: 100 mg Glipizide (Glucotrol) 10 mg PO ACD [facility] Last Admin: 06/02/17 17:06 Dose: Not Given Glipizide (Glucotrol) 15 mg PO ACB [facility] Last Admin: 06/03/17 08:00 Dose: 15 mg Guaifenesin/Dextromethorphan (Robitussin Dm) 10 ml PO Q6 PRN PRN Reason: Cough Heparin Sodium (Porcine) (Heparin) 5,000 units SC Q8 [facility] PRN Reason: Protocol Last Admin: 06/02/17 19:06 Dose: Not Given Hydralazine HCl (Apresoline) 100 mg PO BID [facility] Last Admin: 06/03/17 09:00 Dose: 100 mg Lisinopril (Zestril) 10 mg PO DAILY [facility] Last Admin: 06/03/17 09:00 Dose: 10 mg Metoprolol Succinate (Toprol Xl) 25 mg PO DAILY [facility] Last Admin: 06/03/17 09:00 Dose: 25 mg Mirtazapine (Remeron) 30 mg PO HS [facility] Last Admin: 06/02/17 22:15 Dose: Not Given Risperidone (Risperdal Tab) 3 mg PO HS [facility] Last Admin: 06/02/17 22:15 Dose: Not Given - Labs Labs: 06/02/17 10:30 06/03/17 10:10 PT 10.4 Seconds (9.8-13.1) 05/30/17 17:30 INR 0.9 (0.9-1.2) 05/30/17 17:30 APTT 35.2 Seconds (25.6-37.1) 05/30/17 17:30 - Constitutional Appears: Well, Non-toxic, No Acute Distress - Head Exam Head Exam: ATRAUMATIC, NORMAL INSPECTION - Eye Exam Pupil Exam: NORMAL ACCOMODATION - ENT Exam ENT Exam: Normal Oropharynx - Respiratory Exam Respiratory Exam: Clear to Ausculation Bilateral. absent: Chest Wall Tenderness , Rales, Wheezes - Cardiovascular Exam Cardiovascular Exam: REGULAR RHYTHM, +S1, +S2. absent: Murmur - GI/Abdominal Exam GI & Abdominal Exam: Soft. absent: Distended, Tenderness - Neurological Exam Neurological Exam: Alert, Awake, Oriented x3 Neuro motor strength exam: Left Upper Extremity: 5, Right Upper Extremity: 5, Left Lower Extremity: 5, Right Lower Extremity: 5 - Psychiatric Exam Psychiatric exam: Normal Mood Assessment and Plan - Assessment and Plan (Free Text) Assessment: Assessment: 66 year old male with hx of CKD, chronic pleural effusion, anemia, NIDDM2, HTN presented with complaints of productive cough, fevers/chills and extremity swelling. Patient has 2+ pitting edema of bilateral lower extremities and he has chronic left pleural effusion that has been tapped in the past. Afebrile at this time. Transferred to Med/Surg today. Plan: # URI -Afebrile, no leukocytosis, symptoms improving -ABX DC'd as Cxray was negative for infiltrates. -Repeat Cxray (06/02): Left-sided pleural effusion stable, no acute changes -duonebs prn sob # Bilateral leg edema likely due to CHF -Euvolemic on exam. Echo reviewed, unremarkable -B[place] 4k, [place] [id number] in 03/2017 -Lasix 420g daily with 20mg qpm -BL duplex doppler negative for DVT -Cardio consulted- Prolonged QT on EKG findings due to pt antipsychotic medication -Evaluated and treated by PT yesterday. Will c/w PT therapy sessions # Proteinuria of undiagnosed cause -UA +protein>500, +glucose>500 -consider 24 hour urine protein to assess proteinuria further -Nephro consulted appreciated -IR consulted: plan for IR kidney biopsy tomorrow if possible -F/U PTH, Vit D levels -UCx positive for Staph Epidermis, >100k. No urinary symptoms. U/A negative likely contaminated. Will repeat U/A and UCx #Blurry Vision, new onset, improving -Physical exam unremarkable. No other focal neurological deficits. No prior hx of CVA -Artificial tears BID, Neurochecks q12 -Head CT- no acute changes -Neuro consult appreciated -F/U B12, Folate, TSH labs, RPR # Anemia, stable -asymptomatic -likely combination of anemia of chronic disease (indolent MM) and iron deficiency anemia -H.0 (consistent with previous values) -Iron studies reviewed -TSH:3.5 WNL -vitamin B12 and folate WNL -EPO SC qdaily # Pleural effusion, stable -had thoracocentesis in the past -appears stable on imaging #Chronic kidney disease, stage III (moderate) -GFR 36, CrCl 37 #Diabetes mellitus type 2 in nonobese -c/w home meds -glucosuria present # HTN (hypertension) -Elevated this morning in 150's systolic, but pt was refusing meds last night. Normotensive after receiving BP meds. -Will continue to monitor -ASA held due for biopsy #Neck growth (left) -Mass resolved. -Neck Soft Tissue U/S unremarkable -Likely 3rd spacing fluid from leaning on one side overnight #DVT prophylaxis -Heparin 5000 SC q8H due to renal failure
--- NOTE | 2017-06-03 18:18 | CP.PCM.PN ---
Subjective - Date & Time of Evaluation Date of Evaluation: 06/03/17 Time of Evaluation: 17:45 - Subjective Subjective: Patient reports eye sight improved after complaining of sudden worsening yesterday; tolerating diet; occasional shortness of breath; Objective - Vital Signs/Intake and Output Vital Signs (last 24 hours): Temp Pulse Resp BP Pulse Ox 98.4 F 74 17 146/63 93 L 06/03/17 15:39 06/03/17 15:39 06/03/17 15:39 06/03/17 15:39 06/03/17 15:39 - Medications Medications: Current Medications Albuterol/Ipratropium (Duoneb 3 Mg/0.5 Mg (3 Ml) Ud) 3 ml INH RQ6 PRN PRN Reason: Shortness of Breath Last Admin: 06/02/17 01:03 Dose: 3 ml Amlodipine Besylate (Norvasc) 10 mg PO DAILY [facility] Last Admin: 06/03/17 09:00 Dose: 10 mg Artificial Tears (Artificial Tears) 2 drop OU Q4 PRN PRN Reason: Dry eyes Last Admin: 06/02/17 15:09 Dose: 2 drop Aspirin (Ecotrin) 81 mg PO DAILY [facility] Last Admin: 06/03/17 10:32 Dose: Not Given Atorvastatin Calcium (Lipitor) 40 mg PO DAILY [facility] Last Admin: 06/03/17 09:00 Dose: 40 mg Calcium Acetate (Phoslo) 1,334 mg PO WM [facility] Last Admin: 06/03/17 13:21 Dose: 1,334 mg Docusate Sodium (Colace) 100 mg PO BID [facility] Last Admin: 06/03/17 09:00 Dose: 100 mg Ergocalciferol (Drisdol 50,000 Intl Units Cap) 1 cap PO Q7D [facility] Last Admin: 06/02/17 15:13 Dose: 1 cap Furosemide (Lasix) 20 mg PO QPM [facility] Last Admin: 06/02/17 19:08 Dose: 20 mg Furosemide (Lasix) 20 mg PO DAILY [facility] Last Admin: 06/03/17 09:00 Dose: 20 mg Gabapentin (Neurontin) 100 mg PO BID [facility] Last Admin: 06/03/17 09:00 Dose: 100 mg Glipizide (Glucotrol) 10 mg PO ACD [facility] Last Admin: 06/02/17 17:06 Dose: Not Given Glipizide (Glucotrol) 15 mg PO ACB [facility] Last Admin: 06/03/17 08:00 Dose: 15 mg Guaifenesin/Dextromethorphan (Robitussin Dm) 10 ml PO Q6 PRN PRN Reason: Cough Heparin Sodium (Porcine) (Heparin) 5,000 units SC Q8 [facility] PRN Reason: Protocol Last Admin: 06/02/17 19:06 Dose: Not Given Hydralazine HCl (Apresoline) 100 mg PO BID [facility] Last Admin: 06/03/17 09:00 Dose: 100 mg Lisinopril (Zestril) 10 mg PO DAILY [facility] Last Admin: 06/03/17 09:00 Dose: 10 mg Metoprolol Succinate (Toprol Xl) 25 mg PO DAILY [facility] Last Admin: 06/03/17 09:00 Dose: 25 mg Mirtazapine (Remeron) 30 mg PO HS [facility] Last Admin: 06/02/17 22:15 Dose: Not Given Risperidone (Risperdal Tab) 3 mg PO HS [facility] Last Admin: 06/02/17 22:15 Dose: Not Given - Labs Labs: 06/02/17 10:30 06/03/17 10:10 PT 10.4 Seconds (9.8-13.1) 05/30/17 17:30 INR 0.9 (0.9-1.2) 05/30/17 17:30 APTT 35.2 Seconds (25.6-37.1) 05/30/17 17:30 - Constitutional Appears: Non-toxic, No Acute Distress - Eye Exam Eye Exam: absent: Scleral icterus - ENT Exam ENT Exam: Mucous Membranes Moist - Respiratory Exam Respiratory Exam: absent: Respiratory Distress Additional comments: Markedly decreased breath sounds on L, bronchial sounds at R base; - Cardiovascular Exam Cardiovascular Exam: RRR, +S1, +S2 - GI/Abdominal Exam GI & Abdominal Exam: Soft. absent: Distended, Tenderness - Extremities Exam Additional comments: moderate b/l lower leg edema; - Neurological Exam Neurological Exam: Alert, Awake - Psychiatric Exam Psychiatric exam: absent: Agitated - Skin Skin Exam: Warm. absent: Cyanosis Assessment and Plan (1) Acute kidney injury superimposed on chronic kidney disease Assessment & Plan: CHINTAN on CKD IIIB; decreasing eGFR likely hemodynamically mediated due to being on diuretics as well as starting KEVIN blockade 2 days ago; relatively stable electrolyte and volume status despite marked total body edema from nephrotic syndrome; -diuretics decreased further to lasix 20 mg PO bid; continuing low dose lisinopril 10 mg daily; -avoid nephrotoxic meds; Status: Acute (2) Nephrotic syndrome Assessment & Plan: See consult note; has multiple causes for nephrotic syndrome and would benefit from renal biopsy; patient explained that I would be willing to follow him post biopsy and he said that he was willing to do so if he has transportation; Will plan for IR biopsy; holding ASA (as well as heparin on day of procedure); Will give DDAVP just before procedure to help avoid bleeding associated with platelet dysfunction; Status: Acute (3) Hypertensive CKD (chronic kidney disease) Assessment & Plan: Blood pressure better controlled; most recent high BP may have been due to EPO; continue current meds including lasix 20 mg bid; Status: Acute (4) Anemia of renal disease Assessment & Plan: Hgb stable; s/p EPO 10,000 u; continue to monitor; Status: Acute (5) Chronic kidney disease-mineral and bone disorder Assessment & Plan: Started on ergocalciferol for low 25-OH vit D level; continue phoslo 2 tabs w/ meals; Status: Acute (6) CHF (congestive heart failure) Status: Acute
[2017-06-03] MEDS: Albuterol-Ipratrop 3 mg / 0.5 (3 ml) UD INH PRN (23:55)
[2017-06-04 07:31] LABS: HEMATOCRIT 24.5 % (35.0-51.0); MEAN CORPUSCULAR HEMOGLOBIN 30.9 pg (27.0-31.0); MEAN CORPUSCULAR HGB CONC 32.5 g/dL (33.0-37.0); RED CELL DISTRIBUTION WIDTH 14.8 % (11.5-14.5); WHITE BLOOD COUNT 11.1 K/uL (4.8-10.8)
[2017-06-04 07:51] LABS: ALB/GLOB RATIO 0.9 (1.0-2.1); BILIRUBIN,TOTAL 0.1 mg/dl (0.2-1.3); CALCIUM 7.6 mg/dL (8.4-10.2); POTASSIUM 4.6 MMOL/L (3.6-5.0)
[2017-06-04] MEDS: Metoprolol Succinate 25 mg XL Tab PO SCH (08:59)
--- NOTE | 2017-06-04 09:33 | CP.PCM.PN ---
Subjective - Date & Time of Evaluation Date of Evaluation: 06/04/17 Time of Evaluation: 09:29 - Subjective Subjective: Me. Durand was seen and examined at the bedside. He is alert, oriented speaks mainly Dominican. Voice service [place] [id number] assist during the assessment. He denies any headache, weakness, lightheadedness, nausea, or vomiting. he still states of experiencing blurry vision. CT of the head showed neuro-degenerative changes. The result was explained to him by a Dominican speaking staff, verbalizes understanding.There was no untoward events overnight. Objective - Vital Signs/Intake and Output Vital Signs (last 24 hours): Temp Pulse Resp BP Pulse Ox 98.5 F 77 20 159/64 H 94 L 06/04/17 08:15 06/04/17 09:00 06/04/17 08:15 06/04/17 09:05 06/04/17 08:15 - Medications Medications: Current Medications Albuterol/Ipratropium (Duoneb 3 Mg/0.5 Mg (3 Ml) Ud) 3 ml INH RQ6 PRN PRN Reason: Shortness of Breath Last Admin: 06/03/17 23:55 Dose: 3 ml Amlodipine Besylate (Norvasc) 10 mg PO DAILY [facility] Last Admin: 06/04/17 08:58 Dose: 10 mg Artificial Tears (Artificial Tears) 2 drop OU Q4 PRN PRN Reason: Dry eyes Last Admin: 06/02/17 15:09 Dose: 2 drop Aspirin (Ecotrin) 81 mg PO DAILY [facility] Last Admin: 06/03/17 10:32 Dose: Not Given Atorvastatin Calcium (Lipitor) 40 mg PO DAILY [facility] Last Admin: 06/04/17 08:58 Dose: 40 mg Calcium Acetate (Phoslo) 1,334 mg PO WM [facility] Last Admin: 06/04/17 08:57 Dose: 1,334 mg Docusate Sodium (Colace) 100 mg PO BID [facility] Last Admin: 06/04/17 08:58 Dose: 100 mg Ergocalciferol (Drisdol 50,000 Intl Units Cap) 1 cap PO Q7D [facility] Last Admin: 06/02/17 15:13 Dose: 1 cap Furosemide (Lasix) 20 mg PO QPM [facility] Last Admin: 06/03/17 18:21 Dose: 20 mg Furosemide (Lasix) 20 mg PO DAILY [facility] Last Admin: 06/04/17 09:05 Dose: 20 mg Gabapentin (Neurontin) 100 mg PO BID [facility] Last Admin: 06/04/17 08:58 Dose: 100 mg Glipizide (Glucotrol) 10 mg PO ACD [facility] Last Admin: 06/03/17 17:00 Dose: 10 mg Glipizide (Glucotrol) 15 mg PO ACB [facility] Last Admin: 06/04/17 08:59 Dose: 15 mg Guaifenesin/Dextromethorphan (Robitussin Dm) 10 ml PO Q6 PRN PRN Reason: Cough Last Admin: 06/03/17 23:56 Dose: 10 ml Heparin Sodium (Porcine) (Heparin) 5,000 units SC Q8 [facility] PRN Reason: Protocol Last Admin: 06/02/17 19:06 Dose: Not Given Hydralazine HCl (Apresoline) 100 mg PO BID [facility] Last Admin: 06/04/17 09:00 Dose: 100 mg Lisinopril (Zestril) 10 mg PO DAILY [facility] Last Admin: 06/04/17 08:59 Dose: 10 mg Metoprolol Succinate (Toprol Xl) 25 mg PO DAILY [facility] Last Admin: 06/04/17 08:59 Dose: 25 mg Mirtazapine (Remeron) 30 mg PO HS [facility] Last Admin: 06/03/17 22:02 Dose: 30 mg Risperidone (Risperdal Tab) 3 mg PO HS [facility] Last Admin: 06/03/17 22:03 Dose: 3 mg - Labs Labs: 06/04/17 06:25 06/04/17 06:25 PT 10.4 Seconds (9.8-13.1) 05/30/17 17:30 INR 0.9 (0.9-1.2) 05/30/17 17:30 APTT 35.2 Seconds (25.6-37.1) 05/30/17 17:30 - Constitutional Appears: No Acute Distress - Head Exam Head Exam: ATRAUMATIC - Neurological Exam Neurological Exam: Alert, Awake, CN II-XII Intact, Oriented x3 Neuro motor strength exam: Left Upper Extremity: 5, Right Upper Extremity: 5, Left Lower Extremity: 5, Right Lower Extremity: 5 Additional comments: he is able to answer questions approriately and follows simple commands. Sensation is intact. Assessment and Plan (1) urry vision, bilateral Assessment & Plan: Case discussed with Dr. Das, continue all current medical, physical, and occupational therapies. There is no new recommendations neurology. Status: Acute
--- NOTE | 2017-06-04 14:32 | CP.PCM.PN ---
Subjective - Date & Time of Evaluation Date of Evaluation: 06/04/17 Time of Evaluation: 08:00 - Subjective Subjective: PT refused PT this morning because he was tired. States his vision is still blurry. When I spoke to patient this morning, he denies refusing PT and said he would be willing to participate in therapy. Discussed at length with patient the benefits of therapy. Patient verbalized understanding. Objective - Vital Signs/Intake and Output Vital Signs (last 24 hours): Temp Pulse Resp BP Pulse Ox 98.5 F 67 20 159/67 H 94 L 06/04/17 08:15 06/04/17 13:20 06/04/17 08:15 06/04/17 13:20 06/04/17 08:15 - Medications Medications: Current Medications Albuterol/Ipratropium (Duoneb 3 Mg/0.5 Mg (3 Ml) Ud) 3 ml INH RQ6 PRN PRN Reason: Shortness of Breath Last Admin: 06/03/17 23:55 Dose: 3 ml Amlodipine Besylate (Norvasc) 10 mg PO DAILY [facility] Last Admin: 06/04/17 08:58 Dose: 10 mg Artificial Tears (Artificial Tears) 2 drop OU Q4 PRN PRN Reason: Dry eyes Last Admin: 06/02/17 15:09 Dose: 2 drop Aspirin (Ecotrin) 81 mg PO DAILY [facility] Last Admin: 06/03/17 10:32 Dose: Not Given Atorvastatin Calcium (Lipitor) 40 mg PO DAILY [facility] Last Admin: 06/04/17 08:58 Dose: 40 mg Calcium Acetate (Phoslo) 1,334 mg PO WM [facility] Last Admin: 06/04/17 13:20 Dose: 1,334 mg Carvedilol (Coreg) 6.25 mg PO Q12 [facility] Docusate Sodium (Colace) 100 mg PO BID [facility] Last Admin: 06/04/17 08:58 Dose: 100 mg Ergocalciferol (Drisdol 50,000 Intl Units Cap) 1 cap PO Q7D [facility] Last Admin: 06/02/17 15:13 Dose: 1 cap Furosemide (Lasix) 20 mg PO QPM [facility] Last Admin: 06/03/17 18:21 Dose: 20 mg Furosemide (Lasix) 20 mg PO DAILY [facility] Last Admin: 06/04/17 09:05 Dose: 20 mg Gabapentin (Neurontin) 100 mg PO BID [facility] Last Admin: 06/04/17 08:58 Dose: 100 mg Glipizide (Glucotrol) 10 mg PO ACD [facility] Last Admin: 06/03/17 17:00 Dose: 10 mg Glipizide (Glucotrol) 15 mg PO ACB [facility] Last Admin: 06/04/17 08:59 Dose: 15 mg Guaifenesin/Dextromethorphan (Robitussin Dm) 10 ml PO Q6 PRN PRN Reason: Cough Last Admin: 06/03/17 23:56 Dose: 10 ml Heparin Sodium (Porcine) (Heparin) 5,000 units SC Q8 [facility] PRN Reason: Protocol Last Admin: 06/02/17 19:06 Dose: Not Given Hydralazine HCl (Apresoline) 100 mg PO BID [facility] Last Admin: 06/04/17 09:00 Dose: 100 mg Lisinopril (Zestril) 20 mg PO DAILY [facility] Mirtazapine (Remeron) 30 mg PO HS [facility] Last Admin: 06/03/17 22:02 Dose: 30 mg Risperidone (Risperdal Tab) 3 mg PO HS [facility] Last Admin: 06/03/17 22:03 Dose: 3 mg - Labs Labs: 06/04/17 06:25 06/04/17 06:25 PT 10.4 Seconds (9.8-13.1) 05/30/17 17:30 INR 0.9 (0.9-1.2) 05/30/17 17:30 APTT 35.2 Seconds (25.6-37.1) 05/30/17 17:30 - Constitutional Appears: Well, Non-toxic, No Acute Distress - Eye Exam Eye Exam: absent: Conjunctival injection, Nystagmus, Periorbital tenderness, PERRL, Scleral icterus Pupil Exam: NORMAL ACCOMODATION - ENT Exam ENT Exam: Mucous Membranes Moist - Neck Exam Neck Exam: absent: Lymphadenopathy - Respiratory Exam Respiratory Exam: Clear to Ausculation Bilateral. absent: Rales, Wheezes - Cardiovascular Exam Cardiovascular Exam: REGULAR RHYTHM, +S1, +S2. absent: Murmur - GI/Abdominal Exam GI & Abdominal Exam: Soft. absent: Tenderness - Extremities Exam Additional comments: Moderate BL edema up to knees. - Neurological Exam Neurological Exam: Alert, Awake, CN II-XII Intact, Oriented x3. absent: Motor Sensory Deficit, Reflexes Normal Neuro motor strength exam: Left Upper Extremity: 5, Right Upper Extremity: 5, Left Lower Extremity: 5, Right Lower Extremity: 5 - Psychiatric Exam Psychiatric exam: Flat Affect Assessment and Plan - Assessment and Plan (Free Text) Assessment: 66 year old male with hx of CKD, chronic pleural effusion, anemia, NIDDM2, HTN presented with complaints of productive cough, fevers/chills and extremity swelling. Patient has 2+ pitting edema of bilateral lower extremities and he has chronic left pleural effusion that has been tapped in the past. Plan for IR guided kidney biopsy tomorrow. Plan: # URI -Afebrile, no leukocytosis, cough improving -ABX DC'd as Cxray was negative for infiltrates. -Repeat Cxray (06/02): Left-sided pleural effusion stable, no acute changes -duonebs prn sob # Bilateral leg edema likely due to CHF -Euvolemic on exam. Echo reviewed, unremarkable -B[place] 4k, [place] [id number] in 03/2017 -Lasix 420g daily with 20mg qpm -BL duplex doppler negative for DVT -Cardio consulted- Prolonged QT on EKG findings due to pt antipsychotic medication -PT has refused PT this morning but I spoke to patient and he has agreed to participate in therapy. # Proteinuria of undiagnosed cause -UA +protein>500, +glucose>500 -consider 24 hour urine protein to assess proteinuria further -Nephro consulted appreciated -IR consulted: plan for IR kidney biopsy tomorrow if possible -F/U PTH, Vit D levels -UCx positive for Staph Epidermis, >100k. No urinary symptoms. U/A negative likely contaminated. Will repeat U/A and UCx #Blurry Vision, new onset -PT still complaining of blurry vision. Physical exam unremarkable. No other focal neurological deficits. No prior hx of CVA. Visual acuity assessed today, 2 /200 BL. Fundoscope exam unremarkable. -Artificial tears BID, Neurochecks q12 -Head CT- no acute changes -Neuro consult appreciated -F/U B12, Folate, TSH labs, RPR -Occupational therapy ordered to asses pt's ADL's and visual capabilities as well. # Anemia, stable -asymptomatic -likely combination of anemia of chronic disease (indolent MM) and iron deficiency anemia -H.0 (consistent with previous values) -Iron studies reviewed -TSH:3.5 WNL -vitamin B12 and folate WNL -EPO SC qdaily # Pleural effusion, stable -had thoracocentesis in the past -appears stable on imaging #Chronic kidney disease, stage III (moderate) -GFR 36, CrCl 37 -As per nephro will administer Desmopressin prior to Biopsy procedure prophylactically #Diabetes mellitus type 2 in nonobese -c/w home meds -glucosuria present # HTN (hypertension) -Elevated this morning in 150's systolic, but pt was refusing meds last night. Normotensive after receiving BP meds. -Will continue to monitor -ASA held due for biopsy #Neck growth (left) -Mass resolved. -Neck Soft Tissue U/S unremarkable -Likely 3rd spacing fluid from leaning on one side overnight #DVT prophylaxis -Heparin 5000 SC q8H due to renal failure ,will be held at midnight for tomorrow 's procedure # Diet -NPO at midnight
[2017-06-04 17:57] LABS: FOLATE 12.3 ng/mL
--- NOTE | 2017-06-04 21:47 | CP.PCM.PN ---
Subjective - Date & Time of Evaluation Date of Evaluation: 06/04/17 Time of Evaluation: 13:00 - Subjective Subjective: Patient tolerating diet; Objective - Vital Signs/Intake and Output Vital Signs (last 24 hours): Temp Pulse Resp BP Pulse Ox 98.2 F 79 20 153/72 H 94 L 06/04/17 16:15 06/04/17 21:24 06/04/17 16:15 06/04/17 21:24 06/04/17 16:15 - Medications Medications: Current Medications Albuterol/Ipratropium (Duoneb 3 Mg/0.5 Mg (3 Ml) Ud) 3 ml INH RQ6 PRN PRN Reason: Shortness of Breath Last Admin: 06/03/17 23:55 Dose: 3 ml Amlodipine Besylate (Norvasc) 10 mg PO DAILY [facility] Last Admin: 06/04/17 08:58 Dose: 10 mg Artificial Tears (Artificial Tears) 2 drop OU Q4 PRN PRN Reason: Dry eyes Last Admin: 06/02/17 15:09 Dose: 2 drop Aspirin (Ecotrin) 81 mg PO DAILY [facility] Last Admin: 06/03/17 10:32 Dose: Not Given Atorvastatin Calcium (Lipitor) 40 mg PO DAILY [facility] Last Admin: 06/04/17 08:58 Dose: 40 mg Calcium Acetate (Phoslo) 1,334 mg PO WM [facility] Last Admin: 06/04/17 18:01 Dose: 1,334 mg Carvedilol (Coreg) 6.25 mg PO Q12 [facility] Last Admin: 06/04/17 21:24 Dose: 6.25 mg Docusate Sodium (Colace) 100 mg PO BID [facility] Last Admin: 06/04/17 16:47 Dose: 100 mg Ergocalciferol (Drisdol 50,000 Intl Units Cap) 1 cap PO Q7D [facility] Last Admin: 06/02/17 15:13 Dose: 1 cap Furosemide (Lasix) 20 mg PO QPM [facility] Last Admin: 06/04/17 18:03 Dose: 20 mg Furosemide (Lasix) 20 mg PO DAILY [facility] Last Admin: 06/04/17 09:05 Dose: 20 mg Gabapentin (Neurontin) 100 mg PO BID [facility] Last Admin: 06/04/17 16:47 Dose: 100 mg Glipizide (Glucotrol) 10 mg PO ACD [facility] Last Admin: 06/04/17 16:48 Dose: 10 mg Glipizide (Glucotrol) 15 mg PO ACB [facility] Last Admin: 06/04/17 08:59 Dose: 15 mg Guaifenesin/Dextromethorphan (Robitussin Dm) 10 ml PO Q6 PRN PRN Reason: Cough Last Admin: 06/03/17 23:56 Dose: 10 ml Heparin Sodium (Porcine) (Heparin) 5,000 units SC Q8 [facility] PRN Reason: Protocol Last Admin: 06/04/17 18:26 Dose: Not Given Hydralazine HCl (Apresoline) 100 mg PO BID [facility] Last Admin: 06/04/17 16:48 Dose: 100 mg Lisinopril (Zestril) 20 mg PO DAILY [facility] Mirtazapine (Remeron) 30 mg PO HS [facility] Last Admin: 06/04/17 21:22 Dose: 30 mg Risperidone (Risperdal Tab) 3 mg PO HS [facility] Last Admin: 06/04/17 21:22 Dose: 3 mg - Labs Labs: 06/04/17 06:25 06/04/17 06:25 PT 10.4 Seconds (9.8-13.1) 05/30/17 17:30 INR 0.9 (0.9-1.2) 05/30/17 17:30 APTT 35.2 Seconds (25.6-37.1) 05/30/17 17:30 - Constitutional Appears: Non-toxic, No Acute Distress - Eye Exam Eye Exam: absent: Scleral icterus - ENT Exam ENT Exam: Mucous Membranes Moist - Respiratory Exam Respiratory Exam: Clear to Ausculation Bilateral, NORMAL BREATHING PATTERN - Cardiovascular Exam Cardiovascular Exam: RRR, +S1, +S2 - GI/Abdominal Exam GI & Abdominal Exam: Soft. absent: Distended, Tenderness - Extremities Exam Additional comments: mild/moderate leg edema b/l - Neurological Exam Neurological Exam: Alert, Awake - Psychiatric Exam Psychiatric exam: absent: Agitated - Skin Skin Exam: Warm. absent: Cyanosis Assessment and Plan (1) Acute kidney injury superimposed on chronic kidney disease Assessment & Plan: Hemodynamically mediated increases in serum creatinine due to diuretics and ARON inhibitor, renal function relatively stable; increasing dose of lisinopril to 20 mg daily; continue lasix 20 mg bid PO; Status: Acute (2) Nephrotic syndrome Assessment & Plan: Patient awaiting renal biopsy for suspected paraproteinemia causing nephrotic syndrome (membranous nephropathy and DM also in differential); increasing KEVIN blockade as mentioned above; Status: Acute (3) Hypertensive CKD (chronic kidney disease) Assessment & Plan: BP still elevated; changing metoprolol 25 mg bid to coreg 6.25 mg bid for better BP control; increased lisinopril dose; continue rest of meds; Status: Acute (4) Anemia of renal disease Assessment & Plan: Hgb stable; s/p EPO dose on 06/01, will re-dose weekly if patient remains admitted; Status: Acute (5) Chronic kidney disease-mineral and bone disorder Assessment & Plan: Mildly elevated PTH; continue ergocalciferol and phoslo; checking phos level ( goal < 5.5); Status: Acute (6) CHF (congestive heart failure) Status: Acute
[2017-06-04] MEDS ORDERED: Lactated Ringer's 1,000 ML IV SCH (23:15)
[2017-06-05 00:27] LABS: RBC URINE 4 /hpf (0-3); URINE BACTERIA RARE (<OCC); URINE BILIRUBIN NEGATIVE (NEGATIVE); URINE BLOOD NEGATIVE (NEGATIVE); URINE COLOR STRAW (YELLOW); URINE GLUCOSE (UA) 150 mg/dL (Normal); URINE KETONE NEGATIVE (NEGATIVE); URINE LEUKOCYTE ESTERASE NEG Leu/uL (Negative); URINE PROTEIN 100 mg/dL (NEGATIVE); URINE UROBILINOGEN 0.2-1.0 mg/dL (0.2-1.0); WBC URINE 1 /hpf (0-5)
[2017-06-05] MEDS ORDERED: Desmopressin 20 MCG in Sodium Chloride 0.9% 50 ML IV ONE (09:15)
--- NOTE | 2017-06-05 10:12 | CP.PCM.PN ---
Subjective - Date & Time of Evaluation Date of Evaluation: 06/05/17 Time of Evaluation: 10:10 - Subjective Subjective: Mr. Durand was seen and examined at the bedside. He is alert, oriented with complains of blurry vision. The result of the CT of the head was discussed with him with wireworker and verbalizes understanding. He complains of weakness in his lower extremities and wants to lay down. He denies any headache, dizziness, nausea, or vomiting. There was no untoward events overnight. Objective - Vital Signs/Intake and Output Vital Signs (last 24 hours): Temp Pulse Resp BP Pulse Ox 98 F 69 20 170/71 H 94 L 06/05/17 08:18 06/05/17 08:18 06/05/17 08:18 06/05/17 08:18 06/05/17 08:18 - Medications Medications: Current Medications Albuterol/Ipratropium (Duoneb 3 Mg/0.5 Mg (3 Ml) Ud) 3 ml INH RQ6 PRN PRN Reason: Shortness of Breath Last Admin: 06/03/17 23:55 Dose: 3 ml Amlodipine Besylate (Norvasc) 10 mg PO DAILY [facility] Last Admin: 06/04/17 08:58 Dose: 10 mg Artificial Tears (Artificial Tears) 2 drop OU Q4 PRN PRN Reason: Dry eyes Last Admin: 06/02/17 15:09 Dose: 2 drop Aspirin (Ecotrin) 81 mg PO DAILY [facility] Last Admin: 06/03/17 10:32 Dose: Not Given Atorvastatin Calcium (Lipitor) 40 mg PO DAILY [facility] Last Admin: 06/04/17 08:58 Dose: 40 mg Calcium Acetate (Phoslo) 1,334 mg PO WM [facility] Last Admin: 06/04/17 18:01 Dose: 1,334 mg Carvedilol (Coreg) 6.25 mg PO Q12 [facility] Last Admin: 06/04/17 21:24 Dose: 6.25 mg Docusate Sodium (Colace) 100 mg PO BID [facility] Last Admin: 06/04/17 16:47 Dose: 100 mg Ergocalciferol (Drisdol 50,000 Intl Units Cap) 1 cap PO Q7D [facility] Last Admin: 06/02/17 15:13 Dose: 1 cap Furosemide (Lasix) 20 mg PO QPM [facility] Last Admin: 06/04/17 18:03 Dose: 20 mg Furosemide (Lasix) 20 mg PO DAILY [facility] Last Admin: 06/04/17 09:05 Dose: 20 mg Gabapentin (Neurontin) 100 mg PO BID [facility] Last Admin: 06/04/17 16:47 Dose: 100 mg Glipizide (Glucotrol) 10 mg PO ACD [facility] Last Admin: 06/04/17 16:48 Dose: 10 mg Glipizide (Glucotrol) 15 mg PO ACB [facility] Last Admin: 06/04/17 08:59 Dose: 15 mg Guaifenesin/Dextromethorphan (Robitussin Dm) 10 ml PO Q6 PRN PRN Reason: Cough Last Admin: 06/03/17 23:56 Dose: 10 ml Heparin Sodium (Porcine) (Heparin) 5,000 units SC Q8 [facility] PRN Reason: Protocol Last Admin: 06/04/17 18:26 Dose: Not Given Hydralazine HCl (Apresoline) 100 mg PO BID [facility] Last Admin: 06/04/17 16:48 Dose: 100 mg Lisinopril (Zestril) 20 mg PO DAILY [facility] Mirtazapine (Remeron) 30 mg PO HS [facility] Last Admin: 06/04/17 21:22 Dose: 30 mg Risperidone (Risperdal Tab) 3 mg PO HS [facility] Last Admin: 06/04/17 21:22 Dose: 3 mg - Labs Labs: 06/04/17 06:25 06/04/17 06:25 PT 10.4 Seconds (9.8-13.1) 05/30/17 17:30 INR 0.9 (0.9-1.2) 05/30/17 17:30 APTT 35.2 Seconds (25.6-37.1) 05/30/17 17:30 - Constitutional Appears: No Acute Distress - Head Exam Head Exam: ATRAUMATIC - Neurological Exam Neurological Exam: Alert, Awake, Oriented x3 Neuro motor strength exam: Left Upper Extremity: 4, Right Upper Extremity: 5, Left Lower Extremity: 5, Right Lower Extremity: 5 Additional comments: Neurological unchanged from previous examination. Assessment and Plan (1) Blurry vision, bilateral Assessment & Plan: Case discussed with Dr. Magallon, continue all current medical, physical, and occupational therapies. Status: Acute
[2017-06-05] MEDS ORDERED: Desmopressin 4 mcg/ml Inj (10 ml) IV ONE (13:00)
--- NOTE | 2017-06-05 13:19 | CP.PCM.PN ---
Subjective - Date & Time of Evaluation Date of Evaluation: 06/05/17 Time of Evaluation: 13:16 - Subjective Subjective: No acute overnight events. Pt seen and examined at the bedside this morning. Still complains of blurry vision that is the same from yesterday. Additionally, states that he is having burning pain when urinating starting last night. Denies CP, SOB, n/v/d, abdominal pain, fever, chills. Later in the morning, the medicine team walked 5-6 steps with the patient to assess for his visual and physical capacity. Pt was able to walk slowly without assistance. Objective - Vital Signs/Intake and Output Vital Signs (last 24 hours): Temp Pulse Resp BP Pulse Ox 98 F 69 20 170/71 H 94 L 06/05/17 08:18 06/05/17 10:56 06/05/17 08:18 06/05/17 10:56 06/05/17 08:18 - Medications Medications: Current Medications Albuterol/Ipratropium (Duoneb 3 Mg/0.5 Mg (3 Ml) Ud) 3 ml INH RQ6 PRN PRN Reason: Shortness of Breath Last Admin: 06/03/17 23:55 Dose: 3 ml Amlodipine Besylate (Norvasc) 10 mg PO DAILY [facility] Last Admin: 06/05/17 10:54 Dose: 10 mg Artificial Tears (Artificial Tears) 2 drop OU Q4 PRN PRN Reason: Dry eyes Last Admin: 06/02/17 15:09 Dose: 2 drop Aspirin (Ecotrin) 81 mg PO DAILY [facility] Last Admin: 06/03/17 10:32 Dose: Not Given Atorvastatin Calcium (Lipitor) 40 mg PO DAILY [facility] Last Admin: 06/05/17 10:54 Dose: 40 mg Calcium Acetate (Phoslo) 1,334 mg PO WM [facility] Last Admin: 06/05/17 08:30 Dose: 1,334 mg Carvedilol (Coreg) 12.5 mg PO Q12 [facility] Docusate Sodium (Colace) 100 mg PO BID [facility] Last Admin: 06/05/17 10:49 Dose: 100 mg Ergocalciferol (Drisdol 50,000 Intl Units Cap) 1 cap PO Q7D [facility] Last Admin: 06/02/17 15:13 Dose: 1 cap Furosemide (Lasix) 20 mg PO QPM [facility] Last Admin: 06/04/17 18:03 Dose: 20 mg Furosemide (Lasix) 20 mg PO DAILY [facility] Last Admin: 06/05/17 10:53 Dose: 20 mg Gabapentin (Neurontin) 100 mg PO BID [facility] Last Admin: 06/05/17 10:54 Dose: 100 mg Glipizide (Glucotrol) 10 mg PO ACD [facility] Last Admin: 06/04/17 16:48 Dose: 10 mg Glipizide (Glucotrol) 15 mg PO ACB [facility] Last Admin: 06/05/17 10:51 Dose: 15 mg Guaifenesin/Dextromethorphan (Robitussin Dm) 10 ml PO Q6 PRN PRN Reason: Cough Last Admin: 06/03/17 23:56 Dose: 10 ml Heparin Sodium (Porcine) (Heparin) 5,000 units SC Q8 [facility] PRN Reason: Protocol Last Admin: 06/04/17 18:26 Dose: Not Given Hydralazine HCl (Apresoline) 100 mg PO BID [facility] Last Admin: 06/05/17 10:48 Dose: 100 mg Lisinopril (Zestril) 20 mg PO DAILY [facility] Last Admin: 06/05/17 10:56 Dose: 20 mg Mirtazapine (Remeron) 30 mg PO HS [facility] Last Admin: 06/04/17 21:22 Dose: 30 mg Risperidone (Risperdal Tab) 3 mg PO HS [facility] Last Admin: 06/04/17 21:22 Dose: 3 mg - Labs Labs: 06/04/17 06:25 06/04/17 06:25 PT 10.4 Seconds (9.8-13.1) 05/30/17 17:30 INR 0.9 (0.9-1.2) 05/30/17 17:30 APTT 35.2 Seconds (25.6-37.1) 05/30/17 17:30 - Constitutional Appears: Well, Non-toxic, Toxic - Head Exam Head Exam: ATRAUMATIC, NORMAL INSPECTION - ENT Exam ENT Exam: Mucous Membranes Moist - Respiratory Exam Respiratory Exam: Clear to Ausculation Bilateral, NORMAL BREATHING PATTERN. absent: Accessory Muscle Use, Rales, Wheezes - Cardiovascular Exam Cardiovascular Exam: REGULAR RHYTHM, +S1, +S2. absent: Murmur - GI/Abdominal Exam GI & Abdominal Exam: Soft, Tenderness (MIld tenderness to deep palpation), Normal Bowel Sounds. absent: Guarding, Rigid, Organomegaly - Back Exam Additional comments: When asked, patient stated he has pain on moderate palpation of CVA BL. No grimace or painful reaction noted. - Neurological Exam Neurological Exam: Alert, Awake, Normal Gait, Oriented x3 Neuro motor strength exam: Left Upper Extremity: 5, Right Upper Extremity: 5, Left Lower Extremity: 5, Right Lower Extremity: 5 - Psychiatric Exam Psychiatric exam: Flat Affect Assessment and Plan - Assessment and Plan (Free Text) Assessment: Assessment: 66 year old male with hx of CKD, chronic pleural effusion, anemia, NIDDM2, HTN presented with complaints of productive cough, fevers/chills and extremity swelling. Patient has 2+ pitting edema of bilateral lower extremities and he has chronic left pleural effusion that has been tapped in the past. Plan for IR guided kidney biopsy today. Plan: # URI -Afebrile, no leukocytosis, cough improving -ABX DC'd as Cxray was negative for infiltrates. -Repeat Cxray (06/02): Left-sided pleural effusion stable, no acute changes -duonebs prn sob # Bilateral leg edema likely due to CHF -Euvolemic on exam. Echo reviewed, unremarkable -BNP 4k, [place] [id number] in 03/2017 -Lasix 420g daily with 20mg qpm -BL duplex doppler negative for DVT -Cardio consulted- Prolonged QT on EKG findings due to pt antipsychotic medication -Pt cooperative with Physical Therapy yesterday afternoon. As per physical therapy, pt is cleared for D/C with assisted devices. # Proteinuria of undiagnosed cause -UA +protein>500, +glucose>500 -consider 24 hour urine protein to assess proteinuria further -Nephro consulted appreciated -IR consulted: plan for IR kidney biopsy today. -F/U PTH, Vit D levels #Blurry Vision, new onset -PT still complaining of blurry vision. Physical exam unremarkable. No other focal neurological deficits. No prior hx of CVA. Visual acuity assessed today, 2 /200 BL. Fundoscope exam unremarkable. -Artificial tears BID, Neurochecks q12 -Head CT- no acute changes -Neuro consult appreciated -F/U B12, Folate, TSH labs, RPR -Occupational therapy ordered to asses pt's ADL's and visual capabilities as well. #Urinary symptoms, new onset -Mild dysuria since last night -Afebrile, WBC 11 -U/A from 06/04 wnl -UCx (05/30) positive for Staph Epidermis, >100k. No urinary symptoms. Repeat UCx -Will monitor # Anemia, stable -asymptomatic -likely combination of anemia of chronic disease (indolent MM) and iron deficiency anemia -H.0 (consistent with previous values) -Iron studies reviewed -TSH:3.5 WNL -vitamin B12 and folate WNL -EPO SC qdaily # Pleural effusion, stable -had thoracocentesis in the past -appears stable on imaging #Chronic kidney disease, stage III (moderate) -GFR 36, CrCl 37 -As per nephro will administer Desmopressin prior to Biopsy procedure prophylactically #Diabetes mellitus type 2 in nonobese -c/w home meds -glucosuria present # HTN (hypertension) -Elevated this morning in 170's systolic, pt occasionally refusing meds. Encouraged pt to take meds -Lisinopril 20mg increased nephrology -Will continue to monitor -ASA held due for biopsy #Neck growth (left) -Mass resolved. -Neck Soft Tissue U/S unremarkable -Likely 3rd spacing fluid from leaning on one side overnight #DVT prophylaxis -Heparin 5000 SC q8H due to renal failure ,held for today's procedure, will restart after procedure. # Diet -NPO. Will restart Renal Diet after biopsy
[2017-06-05] MEDS ORDERED: Absorbable Gelatin Sponge Size 12-7 ONE (13:20)
[2017-06-05] MEDS ORDERED: Lidocaine 1% Inj (20ml) ONE (13:20)
[2017-06-05] MEDS ORDERED: Propofol 10 mg/ml Inj (20 ML) ONE (13:34)
--- NOTE | 2017-06-05 13:46 | PCM.SURG1 ---
Surgeon's Initial Post Op Note - Surgeon's Notes Surgeon: Antonio Rebolledo MD [employer] Analyst: NONE Type of Anesthesia: Local Pre-Operative Diagnosis: Renal failure Operative Findings: US showed an unremarkable left kidney. Post-Operative Diagnosis: Renal failure Operation Performed: US guided left renal biospy. Three 18 g core specimen obtained. Biopsy tract embolized with gelfoam. Specimen/Specimens Removed: 18 g core x 3 Estimated Blood Loss: EBL {In ML}: 3 Blood Products Given: N/A Drains Used: No Drains Post-Op Condition: Fair Date of Surgery/Procedure: 06/05/17 Time of Surgery/Procedure: 13:40
[2017-06-05] MEDS ORDERED: Sodium Chloride 0.9% 100 ML IV ONE (13:55)
[2017-06-05] MEDS ORDERED: HYDROmorphone 0.5 mg/0.5 ml ISec IVP PRN (14:14)
[2017-06-05 16:15] LABS: ALB/GLOB RATIO 0.8 (1.0-2.1); BILIRUBIN,TOTAL 0.1 mg/dl (0.2-1.3); CALCIUM 8.1 mg/dL (8.4-10.2); POTASSIUM 4.5 MMOL/L (3.6-5.0); TOTAL PROTEIN 4.9 G/DL (6.3-8.2)
--- NOTE | 2017-06-05 18:31 | CP.PCM.PN ---
Subjective - Date & Time of Evaluation Date of Evaluation: 06/05/17 Time of Evaluation: 16:00 - Subjective Subjective: Patient is s/p L kidney biopsy earlier today; denies any pain; Objective - Vital Signs/Intake and Output Vital Signs (last 24 hours): Temp Pulse Resp BP Pulse Ox 97.7 F 69 20 139/60 93 L 06/05/17 16:03 06/05/17 17:14 06/05/17 16:03 06/05/17 17:18 06/05/17 16:03 Intake and Output: 06/05/17 06/05/17 06:59 18:59 Intake Total 50 Balance 50 - Medications Medications: Current Medications Albuterol/Ipratropium (Duoneb 3 Mg/0.5 Mg (3 Ml) Ud) 3 ml INH RQ6 PRN PRN Reason: Shortness of Breath Last Admin: 06/03/17 23:55 Dose: 3 ml Amlodipine Besylate (Norvasc) 10 mg PO DAILY [facility] Last Admin: 06/05/17 10:54 Dose: 10 mg Artificial Tears (Artificial Tears) 2 drop OU Q4 PRN PRN Reason: Dry eyes Last Admin: 06/02/17 15:09 Dose: 2 drop Aspirin (Ecotrin) 81 mg PO DAILY [facility] Last Admin: 06/03/17 10:32 Dose: Not Given Atorvastatin Calcium (Lipitor) 40 mg PO DAILY [facility] Last Admin: 06/05/17 10:54 Dose: 40 mg Calcium Acetate (Phoslo) 1,334 mg PO WM [facility] Last Admin: 06/05/17 17:40 Dose: 1,334 mg Carvedilol (Coreg) 12.5 mg PO Q12 [facility] Docusate Sodium (Colace) 100 mg PO BID [facility] Last Admin: 06/05/17 17:17 Dose: 100 mg Ergocalciferol (Drisdol 50,000 Intl Units Cap) 1 cap PO Q7D [facility] Last Admin: 06/02/17 15:13 Dose: 1 cap Furosemide (Lasix) 20 mg PO QPM [facility] Last Admin: 06/05/17 17:18 Dose: 20 mg Furosemide (Lasix) 20 mg PO DAILY [facility] Last Admin: 06/05/17 10:53 Dose: 20 mg Gabapentin (Neurontin) 100 mg PO BID [facility] Last Admin: 06/05/17 17:19 Dose: 100 mg Glipizide (Glucotrol) 10 mg PO ACD [facility] Last Admin: 06/05/17 17:18 Dose: 10 mg Glipizide (Glucotrol) 15 mg PO ACB [facility] Last Admin: 06/05/17 10:51 Dose: 15 mg Guaifenesin/Dextromethorphan (Robitussin Dm) 10 ml PO Q6 PRN PRN Reason: Cough Last Admin: 06/03/17 23:56 Dose: 10 ml Heparin Sodium (Porcine) (Heparin) 5,000 units SC Q8 [facility] PRN Reason: Protocol Last Admin: 06/04/17 18:26 Dose: Not Given Hydralazine HCl (Apresoline) 100 mg PO BID [facility] Last Admin: 06/05/17 17:14 Dose: 100 mg Lisinopril (Zestril) 20 mg PO DAILY [facility] Last Admin: 06/05/17 10:56 Dose: 20 mg Mirtazapine (Remeron) 30 mg PO HS [facility] Last Admin: 06/04/17 21:22 Dose: 30 mg Risperidone (Risperdal Tab) 3 mg PO HS [facility] Last Admin: 06/04/17 21:22 Dose: 3 mg - Labs Labs: 06/04/17 06:25 06/05/17 15:43 PT 10.4 Seconds (9.8-13.1) 05/30/17 17:30 INR 0.9 (0.9-1.2) 05/30/17 17:30 APTT 35.2 Seconds (25.6-37.1) 05/30/17 17:30 - Constitutional Appears: Non-toxic, No Acute Distress - Eye Exam Eye Exam: Normal appearance. absent: Scleral icterus - ENT Exam ENT Exam: Mucous Membranes Moist - Respiratory Exam Respiratory Exam: absent: Respiratory Distress Additional comments: decreased L sided breath sounds; - Cardiovascular Exam Cardiovascular Exam: RRR, +S1, +S2 - GI/Abdominal Exam GI & Abdominal Exam: Soft. absent: Distended, Tenderness - Extremities Exam Additional comments: moderate b/l lower leg edema (stable); - Psychiatric Exam Psychiatric exam: absent: Agitated - Skin Skin Exam: Warm. absent: Cyanosis Assessment and Plan (1) Acute kidney injury superimposed on chronic kidney disease Assessment & Plan: Renal function slightly improved despite increasing dose of lisinopril; gentle but sustained diuresis; will continue same; Status: Acute (2) Nephrotic syndrome Assessment & Plan: s/p Renal biopsy today; preliminary results likely available by late tomorrow; therapy will be based on results; for now will continue to titrate upward lisinopril dose as tolerated to max to control proteinuria; Status: Acute (3) Hypertensive CKD (chronic kidney disease) Assessment & Plan: BP still elevated; increasing coreg dose to 12.5 mg bid, continue rest of BP meds including lasix 20 mg PO bid; Status: Acute (4) Anemia of renal disease Assessment & Plan: Hgb stable, will re-assess after biopsy; Status: Acute (5) Chronic kidney disease-mineral and bone disorder Assessment & Plan: Phos elevated, continue phoslo 2 tabs w/ meals; Status: Acute (6) CHF (congestive heart failure) Status: Acute
[2017-06-06 07:41] LABS: HEMATOCRIT 22.2 % (35.0-51.0); MEAN CORPUSCULAR HEMOGLOBIN 31.9 pg (27.0-31.0); MEAN CORPUSCULAR HGB CONC 33.2 g/dL (33.0-37.0); RED CELL DISTRIBUTION WIDTH 14.9 % (11.5-14.5); WHITE BLOOD COUNT 9.7 K/uL (4.8-10.8)
--- NOTE | 2017-06-06 08:33 | CP.PCM.PN ---
Subjective - Date & Time of Evaluation Date of Evaluation: 06/06/17 Time of Evaluation: 08:30 - Subjective Subjective: Mr. ambriz was seen and examined at the bedside. He is alert, oriented in all spheres. He denies any headache, weakness, numbness, nausea, or vomiting. He states of experiencing mild dizziness especially when changing position. he denies of bumping to leone. There was no untoward events overnight. Objective - Vital Signs/Intake and Output Vital Signs (last 24 hours): Temp Pulse Resp BP Pulse Ox 97.9 F 72 17 171/65 H 95 06/06/17 07:56 06/06/17 07:56 06/06/17 07:56 06/06/17 07:56 06/06/17 07:56 - Medications Medications: Current Medications Albuterol/Ipratropium (Duoneb 3 Mg/0.5 Mg (3 Ml) Ud) 3 ml INH RQ6 PRN PRN Reason: Shortness of Breath Last Admin: 06/03/17 23:55 Dose: 3 ml Amlodipine Besylate (Norvasc) 10 mg PO DAILY [facility] Last Admin: 06/05/17 10:54 Dose: 10 mg Artificial Tears (Artificial Tears) 2 drop OU Q4 PRN PRN Reason: Dry eyes Last Admin: 06/02/17 15:09 Dose: 2 drop Aspirin (Ecotrin) 81 mg PO DAILY [facility] Last Admin: 06/03/17 10:32 Dose: Not Given Atorvastatin Calcium (Lipitor) 40 mg PO DAILY [facility] Last Admin: 06/05/17 10:54 Dose: 40 mg Calcium Acetate (Phoslo) 1,334 mg PO WM [facility] Last Admin: 06/05/17 17:40 Dose: 1,334 mg Carvedilol (Coreg) 12.5 mg PO Q12 [facility] Last Admin: 06/05/17 21:47 Dose: 12.5 mg Docusate Sodium (Colace) 100 mg PO BID [facility] Last Admin: 06/05/17 17:17 Dose: 100 mg Ergocalciferol (Drisdol 50,000 Intl Units Cap) 1 cap PO Q7D [facility] Last Admin: 06/02/17 15:13 Dose: 1 cap Furosemide (Lasix) 20 mg PO QPM [facility] Last Admin: 06/05/17 17:18 Dose: 20 mg Furosemide (Lasix) 20 mg PO DAILY [facility] Last Admin: 06/05/17 10:53 Dose: 20 mg Gabapentin (Neurontin) 100 mg PO BID [facility] Last Admin: 06/05/17 17:19 Dose: 100 mg Glipizide (Glucotrol) 10 mg PO ACD [facility] Last Admin: 06/05/17 17:18 Dose: 10 mg Glipizide (Glucotrol) 15 mg PO ACB [facility] Last Admin: 06/05/17 10:51 Dose: 15 mg Guaifenesin/Dextromethorphan (Robitussin Dm) 10 ml PO Q6 PRN PRN Reason: Cough Last Admin: 06/03/17 23:56 Dose: 10 ml Heparin Sodium (Porcine) (Heparin) 5,000 units SC Q8 [facility] PRN Reason: Protocol Last Admin: 06/04/17 18:26 Dose: Not Given Hydralazine HCl (Apresoline) 100 mg PO BID [facility] Last Admin: 06/05/17 17:14 Dose: 100 mg Lisinopril (Zestril) 20 mg PO DAILY [facility] Last Admin: 06/05/17 10:56 Dose: 20 mg Mirtazapine (Remeron) 30 mg PO HS [facility] Last Admin: 06/05/17 21:47 Dose: 30 mg Risperidone (Risperdal Tab) 3 mg PO HS [facility] Last Admin: 06/05/17 21:47 Dose: 3 mg - Labs Labs: 06/06/17 06:20 06/05/17 15:43 PT 10.4 Seconds (9.8-13.1) 05/30/17 17:30 INR 0.9 (0.9-1.2) 05/30/17 17:30 APTT 35.2 Seconds (25.6-37.1) 05/30/17 17:30 - Constitutional Appears: No Acute Distress - Head Exam Head Exam: ATRAUMATIC - Neurological Exam Neurological Exam: Alert, Awake, Oriented x3 Neuro motor strength exam: Left Upper Extremity: 5, Right Upper Extremity: 5, Left Lower Extremity: 5, Right Lower Extremity: 5 Additional comments: Neurological unchanged from previous examination. Assessment and Plan (1) Blurry vision, bilateral Assessment & Plan: Case discussed with Dr. Das, continue all current medical, physical and occupational therapies. Recommends orthostatic vital signs. Status: Acute
[2017-06-06 12:16] LABS: BASO # 0.1 K/uL (0.0-0.2); BASO % 1.1 % (0.0-2.0); EOS # 0.1 K/uL (0.0-0.7); EOS % 1.4 % (0.0-4.0); HEMATOCRIT 22.7 % (35.0-51.0); LYMPH % 11.3 % (20.0-40.0); MEAN CELL VOLUME 95.6 fl (80.0-94.0); MEAN CORPUSCULAR HGB CONC 32.4 g/dL (33.0-37.0); MEAN PLATELET VOLUME 10.7 fl (7.2-11.7); MONO # 0.5 K/uL (0.0-0.8); MONO % 5.6 % (0.0-10.0); NEUT # 7.5 K/uL (1.8-7.0); NEUT % 80.6 % (50.0-75.0); WHITE BLOOD COUNT 9.3 K/uL (4.8-10.8)
[2017-06-06 12:38] LABS: ALB/GLOB RATIO 0.9 (1.0-2.1); BILIRUBIN,TOTAL 0.1 mg/dl (0.2-1.3); CALCIUM 8.3 mg/dL (8.4-10.2); TOTAL PROTEIN 5.3 G/DL (6.3-8.2)
--- NOTE | 2017-06-06 15:02 | CP.PCM.PN ---
Subjective - Date & Time of Evaluation Date of Evaluation: 06/06/17 Time of Evaluation: 08:00 - Subjective Subjective: No acute overnight events. Seen and evaluated at the bedside this morning. Denies CP, SOB, n/v/d, dysuria, calf pain, fever, chills. States cough is improving. Mild blurry vision improved since yesterday. Objective - Vital Signs/Intake and Output Vital Signs (last 24 hours): Temp Pulse Resp BP Pulse Ox 97.9 F 72 17 171/65 H 95 06/06/17 07:56 06/06/17 09:21 06/06/17 07:56 06/06/17 09:21 06/06/17 07:56 - Medications Medications: Current Medications Albuterol/Ipratropium (Duoneb 3 Mg/0.5 Mg (3 Ml) Ud) 3 ml INH RQ6 PRN PRN Reason: Shortness of Breath Last Admin: 06/03/17 23:55 Dose: 3 ml Amlodipine Besylate (Norvasc) 10 mg PO DAILY [facility] Last Admin: 06/06/17 09:21 Dose: 10 mg Artificial Tears (Artificial Tears) 2 drop OU Q4 PRN PRN Reason: Dry eyes Last Admin: 06/02/17 15:09 Dose: 2 drop Aspirin (Ecotrin) 81 mg PO DAILY [facility] Last Admin: 06/03/17 10:32 Dose: Not Given Atorvastatin Calcium (Lipitor) 40 mg PO DAILY [facility] Last Admin: 06/06/17 09:20 Dose: 40 mg Calcium Acetate (Phoslo) 1,334 mg PO WM [facility] Last Admin: 06/06/17 08:30 Dose: 1,334 mg Carvedilol (Coreg) 12.5 mg PO Q12 [facility] Last Admin: 06/06/17 09:18 Dose: 12.5 mg Docusate Sodium (Colace) 100 mg PO BID [facility] Last Admin: 06/06/17 09:21 Dose: 100 mg Ergocalciferol (Drisdol 50,000 Intl Units Cap) 1 cap PO Q7D [facility] Last Admin: 06/02/17 15:13 Dose: 1 cap Ferrous Sulfate (Feosol) 325 mg PO BID [facility] Furosemide (Lasix) 20 mg PO QPM [facility] Last Admin: 06/05/17 17:18 Dose: 20 mg Furosemide (Lasix) 20 mg PO DAILY [facility] Last Admin: 06/06/17 09:20 Dose: 20 mg Gabapentin (Neurontin) 100 mg PO BID [facility] Last Admin: 06/06/17 09:21 Dose: 100 mg Glipizide (Glucotrol) 10 mg PO ACD [facility] Last Admin: 06/05/17 17:18 Dose: 10 mg Glipizide (Glucotrol) 15 mg PO ACB [facility] Last Admin: 06/06/17 09:18 Dose: 15 mg Guaifenesin/Dextromethorphan (Robitussin Dm) 10 ml PO Q6 PRN PRN Reason: Cough Last Admin: 06/03/17 23:56 Dose: 10 ml Heparin Sodium (Porcine) (Heparin) 5,000 units SC Q8 [facility] PRN Reason: Protocol Last Admin: 06/04/17 18:26 Dose: Not Given Hydralazine HCl (Apresoline) 100 mg PO BID [facility] Last Admin: 06/06/17 09:16 Dose: 100 mg Lisinopril (Zestril) 30 mg PO DAILY [facility] Mirtazapine (Remeron) 30 mg PO HS [facility] Last Admin: 06/05/17 21:47 Dose: 30 mg Risperidone (Risperdal Tab) 3 mg PO HS [facility] Last Admin: 06/05/17 21:47 Dose: 3 mg - Labs Labs: 06/06/17 12:07 06/06/17 12:07 PT 10.4 Seconds (9.8-13.1) 05/30/17 17:30 INR 0.9 (0.9-1.2) 05/30/17 17:30 APTT 35.2 Seconds (25.6-37.1) 05/30/17 17:30 - Constitutional Appears: Well, Non-toxic, No Acute Distress - Head Exam Head Exam: ATRAUMATIC, NORMAL INSPECTION - ENT Exam ENT Exam: Mucous Membranes Moist - Cardiovascular Exam Cardiovascular Exam: REGULAR RHYTHM, +S1, +S2. absent: Murmur - GI/Abdominal Exam GI & Abdominal Exam: Soft, Normal Bowel Sounds. absent: Tenderness - Extremities Exam Extremities Exam: Pedal Edema - Back Exam Back Exam: absent: CVA tenderness (L), CVA tenderness (R) - Neurological Exam Neurological Exam: Alert, Awake, Oriented x3 - Psychiatric Exam Psychiatric exam: Flat Affect Assessment and Plan - Assessment and Plan (Free Text) Assessment: 66 year old male with hx of CKD, chronic pleural effusion, chronic anemia, NIDDM2, HTN currently pending D/C upon stabilization of pt's deconditioned state. Found to be anemic today, will transfuse 1 unit. S/P Kidney Biopsy yesterday. Plan: #Deconditioned 2/2 to Chronic Disease -Pt noted to have weakness and gait instability. Evaluated by physical therapy- Assisted devices needed for safe discharge -general utility worker will arrange for assisted devices. # Anemia, Acute on Chronic -7.4 today. Pt complaining of weakness and lightheadedness. -Will transfuse 1 unit today -Likely combination of anemia of chronic disease (indolent MM) and iron deficiency anemia -Iron studies reviewed -vitamin B12 and folate WNL -Started on ferrous sulfate PO # Proteinuria of undiagnosed cause -UA +protein>500, +glucose>500 -Nephro consulted appreciated (Dr. Luz) -Biopsy completed yesterday; management will depend on results. Nephrology on board. -F/U PTH, Vit D levels # URI -Afebrile, no leukocytosis, cough improving -ABX DC'd as Cxray was negative for infiltrates. -Repeat Cxray (06/02): Left-sided pleural effusion stable, no acute changes -duonebs prn sob # Bilateral leg edema likely due to CHF -Euvolemic on remainder of exam. Echo reviewed, unremarkable -B[place] 4k, [place] [id number] in 03/2017 -Lasix 420g daily with 20mg qpm -BL duplex doppler negative for DVT -Cardio consulted- Prolonged QT on EKG findings due to pt antipsychotic medication -Norvasc D/C'd as it may be contributing to LE edema # HTN (hypertension) -Elevated this morning in 170's systolic this morning. -Coreg dosage increased to 12.5mg. -Lisinopril 30mg, will titrate up as per Nephrology -Will continue to monitor -ASA 81mg #Blurry Vision, new onset -No complaints of blurry vision today. Physical exam unremarkable. No other focal neurological deficits. No prior hx of CVA. Visual acuity assessed today, 2 /200 BL. Fundoscope exam unremarkable. Possibly malingering. -Artificial tears BID -Head CT- no acute changes -Neuro consult appreciated -F/U B12, Folate, RPR- wnl -Occupational therapy ordered to asses pt's ADL's and visual capabilities as well. #Urinary symptoms, new onset -No Urinary complaints today -Afebrile, WBC 11 -U/A from 06/04 wnl -UCx (05/30) positive for Staph Epidermis, >100k. No urinary symptoms. Repeat UCx -Will monitor # Pleural effusion, stable -Had thoracocentesis in the past -appears stable on imaging #Chronic kidney disease, stage III (moderate) -GFR 36, CrCl 37 -As per nephro will administer Desmopressin prior to Biopsy procedure prophylactically #Diabetes mellitus type 2 in nonobese -c/w home meds -glucosuria present #DVT prophylaxis -Heparin 5000 SC q8H . Pt has been refusing heparin. Will be held today given anemia but will restart tomorrow. # Diet -Renal Diet
--- NOTE | 2017-06-06 20:44 | CP.PCM.PN ---
Subjective - Date & Time of Evaluation Date of Evaluation: 06/06/17 Time of Evaluation: 20:15 - Subjective Subjective: Patient tolerating diet; still with cough; Objective - Vital Signs/Intake and Output Vital Signs (last 24 hours): Temp Pulse Resp BP Pulse Ox 98.2 F 70 20 155/64 H 93 L 06/06/17 16:37 06/06/17 17:05 06/06/17 16:37 06/06/17 17:10 06/06/17 16:37 - Medications Medications: Current Medications Albuterol/Ipratropium (Duoneb 3 Mg/0.5 Mg (3 Ml) Ud) 3 ml INH RQ6 PRN PRN Reason: Shortness of Breath Last Admin: 06/03/17 23:55 Dose: 3 ml Amlodipine Besylate (Norvasc) 10 mg PO DAILY [facility] Last Admin: 06/06/17 09:21 Dose: 10 mg Artificial Tears (Artificial Tears) 2 drop OU Q4 PRN PRN Reason: Dry eyes Last Admin: 06/02/17 15:09 Dose: 2 drop Aspirin (Ecotrin) 81 mg PO DAILY [facility] Last Admin: 06/03/17 10:32 Dose: Not Given Atorvastatin Calcium (Lipitor) 40 mg PO DAILY [facility] Last Admin: 06/06/17 09:20 Dose: 40 mg Calcium Acetate (Phoslo) 1,334 mg PO WM [facility] Last Admin: 06/06/17 17:29 Dose: 1,334 mg Carvedilol (Coreg) 12.5 mg PO Q12 [facility] Last Admin: 06/06/17 09:18 Dose: 12.5 mg Docusate Sodium (Colace) 100 mg PO BID [facility] Last Admin: 06/06/17 17:08 Dose: 100 mg Ergocalciferol (Drisdol 50,000 Intl Units Cap) 1 cap PO Q7D [facility] Last Admin: 06/02/17 15:13 Dose: 1 cap Ferrous Sulfate (Feosol) 325 mg PO BID [facility] Last Admin: 06/06/17 17:17 Dose: 325 mg Furosemide (Lasix) 20 mg PO QPM [facility] Last Admin: 06/06/17 17:10 Dose: 20 mg Furosemide (Lasix) 20 mg PO DAILY [facility] Last Admin: 06/06/17 09:20 Dose: 20 mg Furosemide (Lasix) 20 mg IVP ONCE ONE Stop: 06/06/17 20:44 Gabapentin (Neurontin) 100 mg PO BID [facility] Last Admin: 06/06/17 17:11 Dose: 100 mg Glipizide (Glucotrol) 10 mg PO ACD [facility] Last Admin: 06/06/17 17:10 Dose: 10 mg Glipizide (Glucotrol) 15 mg PO ACB [facility] Last Admin: 06/06/17 09:18 Dose: 15 mg Guaifenesin/Dextromethorphan (Robitussin Dm) 10 ml PO Q6 PRN PRN Reason: Cough Last Admin: 06/03/17 23:56 Dose: 10 ml Heparin Sodium (Porcine) (Heparin) 5,000 units SC Q8 [facility] PRN Reason: Protocol Last Admin: 06/06/17 17:30 Dose: Not Given Hydralazine HCl (Apresoline) 100 mg PO BID [facility] Last Admin: 06/06/17 17:05 Dose: 100 mg Lisinopril (Zestril) 30 mg PO DAILY [facility] Last Admin: 06/06/17 11:18 Dose: 30 mg Mirtazapine (Remeron) 30 mg PO HS [facility] Last Admin: 06/05/17 21:47 Dose: 30 mg Risperidone (Risperdal Tab) 3 mg PO HS [facility] Last Admin: 06/05/17 21:47 Dose: 3 mg - Labs Labs: 06/06/17 12:07 06/06/17 12:07 PT 10.4 Seconds (9.8-13.1) 05/30/17 17:30 INR 0.9 (0.9-1.2) 05/30/17 17:30 APTT 35.2 Seconds (25.6-37.1) 05/30/17 17:30 - Constitutional Appears: No Acute Distress - Eye Exam Eye Exam: absent: Scleral icterus - ENT Exam ENT Exam: Mucous Membranes Moist - Cardiovascular Exam Cardiovascular Exam: RRR, +S1, +S2 - GI/Abdominal Exam GI & Abdominal Exam: Soft - Extremities Exam Additional comments: moderate edema of all ext; - Psychiatric Exam Psychiatric exam: Agitated - Skin Skin Exam: Warm. absent: Cyanosis Assessment and Plan (1) Acute kidney injury superimposed on chronic kidney disease Assessment & Plan: Renal function relatively stable of late; K at high end of normal; will continue current dose of diuretics, lisinopril being slowly increased for BP control/anti-proteinuric effect; Status: Acute (2) Nephrotic syndrome Assessment & Plan: s/p renal biopsy yesterday; still awaiting results; suspecting monoconal gammopathy affecting kidney; for now will continue to titrate upward KEVIN blockade; Status: Acute (3) Hypertensive CKD (chronic kidney disease) Assessment & Plan: BP still uncontrolled; will re-assess after increasing lisinopril dose; Status: Acute (4) Anemia of renal disease Assessment & Plan: Hgb not improved; getting 1 u prbc today (giving IV lasix 20 mg afterward); will re-dose EPO once BP better controlled; Status: Acute (5) Chronic kidney disease-mineral and bone disorder Assessment & Plan: Mildly elevated PTH, continue ergocalciferol weekly; Status: Acute (6) CHF (congestive heart failure) Status: Acute
[2017-06-07 06:37] LABS: BASO # 0.1 K/uL (0.0-0.2); BASO % 0.8 % (0.0-2.0); EOS # 0.1 K/uL (0.0-0.7); EOS % 1.5 % (0.0-4.0); HEMATOCRIT 26.4 % (35.0-51.0); LYMPH # 1.2 K/uL (1.0-4.3); LYMPH % 13.4 % (20.0-40.0); MEAN CELL VOLUME 93.5 fl (80.0-94.0); MEAN CORPUSCULAR HEMOGLOBIN 30.8 pg (27.0-31.0); MEAN CORPUSCULAR HGB CONC 32.9 g/dL (33.0-37.0); MEAN PLATELET VOLUME 10.7 fl (7.2-11.7); MONO # 0.6 K/uL (0.0-0.8); MONO % 6.6 % (0.0-10.0); NEUT # 7.1 K/uL (1.8-7.0); NEUT % 77.7 % (50.0-75.0); RED CELL DISTRIBUTION WIDTH 15.8 % (11.5-14.5); WHITE BLOOD COUNT 9.2 K/uL (4.8-10.8)
[2017-06-07 06:57] LABS: ALB/GLOB RATIO 0.9 (1.0-2.1); BILIRUBIN,TOTAL 0.2 mg/dl (0.2-1.3); CALCIUM 8.2 mg/dL (8.4-10.2); PHOSPHOROUS 5.4 mg/dl (2.5-4.5); TOTAL PROTEIN 5.5 G/DL (6.3-8.2)
--- NOTE | 2017-06-07 11:45 | CP.PCM.PN ---
Subjective - Date & Time of Evaluation Date of Evaluation: 06/07/17 Time of Evaluation: 09:43 - Subjective Subjective: Patient seen and examined at bedside. No acute events overnight. Patient tolerating PO well. Patient had 1U pRBC transfused yesterday. Denies CP, SOB, n/ v/d, fever, chills. Cough improving. Objective - Vital Signs/Intake and Output Vital Signs (last 24 hours): Temp Pulse Resp BP Pulse Ox 97.9 F 71 18 172/69 H 95 06/07/17 08:17 06/07/17 08:17 06/07/17 08:17 06/07/17 10:24 06/07/17 08:17 Intake and Output: 06/07/17 06/07/17 06:59 18:59 Intake Total 240 Output Total 550 Balance -310 - Medications Medications: Current Medications Albuterol/Ipratropium (Duoneb 3 Mg/0.5 Mg (3 Ml) Ud) 3 ml INH RQ6 PRN PRN Reason: Shortness of Breath Last Admin: 06/03/17 23:55 Dose: 3 ml Amlodipine Besylate (Norvasc) 10 mg PO DAILY [facility] Last Admin: 06/07/17 10:25 Dose: 10 mg Artificial Tears (Artificial Tears) 2 drop OU Q4 PRN PRN Reason: Dry eyes Last Admin: 06/02/17 15:09 Dose: 2 drop Aspirin (Ecotrin) 81 mg PO DAILY [facility] Last Admin: 06/07/17 10:26 Dose: 81 mg Atorvastatin Calcium (Lipitor) 40 mg PO DAILY [facility] Last Admin: 06/07/17 10:25 Dose: 40 mg Calcium Acetate (Phoslo) 1,334 mg PO WM [facility] Last Admin: 06/06/17 17:29 Dose: 1,334 mg Carvedilol (Coreg) 12.5 mg PO Q12 [facility] Last Admin: 06/07/17 10:26 Dose: 12.5 mg Clonidine HCl (Catapres) 0.1 mg PO BID [facility] Last Admin: 06/07/17 10:23 Dose: 0.1 mg Docusate Sodium (Colace) 100 mg PO BID [facility] Last Admin: 06/07/17 10:24 Dose: 100 mg Ergocalciferol (Drisdol 50,000 Intl Units Cap) 1 cap PO Q7D [facility] Last Admin: 06/02/17 15:13 Dose: 1 cap Ferrous Sulfate (Feosol) 325 mg PO BID [facility] Last Admin: 06/07/17 10:23 Dose: 325 mg Furosemide (Lasix) 20 mg PO QPM [facility] Last Admin: 06/06/17 17:10 Dose: 20 mg Furosemide (Lasix) 20 mg PO DAILY [facility] Last Admin: 06/07/17 10:24 Dose: 20 mg Gabapentin (Neurontin) 100 mg PO BID [facility] Last Admin: 06/07/17 10:24 Dose: 100 mg Glipizide (Glucotrol) 10 mg PO ACD [facility] Last Admin: 06/06/17 17:10 Dose: 10 mg Glipizide (Glucotrol) 15 mg PO ACB [facility] Last Admin: 06/07/17 10:25 Dose: 15 mg Guaifenesin/Dextromethorphan (Robitussin Dm) 10 ml PO Q6 PRN PRN Reason: Cough Last Admin: 06/03/17 23:56 Dose: 10 ml Heparin Sodium (Porcine) (Heparin) 5,000 units SC Q8 [facility] PRN Reason: Protocol Last Admin: 06/07/17 10:26 Dose: Not Given Hydralazine HCl (Apresoline) 100 mg PO TID [facility] Lisinopril (Zestril) 30 mg PO DAILY [facility] Last Admin: 06/07/17 10:24 Dose: 30 mg Mirtazapine (Remeron) 30 mg PO HS [facility] Last Admin: 06/06/17 21:37 Dose: 30 mg Risperidone (Risperdal Tab) 3 mg PO HS [facility] Last Admin: 06/06/17 21:38 Dose: 3 mg - Labs Labs: 06/07/17 06:26 06/07/17 06:26 PT 10.4 Seconds (9.8-13.1) 05/30/17 17:30 INR 0.9 (0.9-1.2) 05/30/17 17:30 APTT 35.2 Seconds (25.6-37.1) 05/30/17 17:30 - Constitutional Appears: Non-toxic, No Acute Distress, Chronically Ill - Head Exam Head Exam: ATRAUMATIC, NORMAL INSPECTION, NORMOCEPHALIC - Neck Exam Neck Exam: Normal Inspection - Respiratory Exam Respiratory Exam: Clear to Ausculation Bilateral, NORMAL BREATHING PATTERN - Cardiovascular Exam Cardiovascular Exam: REGULAR RHYTHM, +S1, +S2. absent: Murmur - GI/Abdominal Exam GI & Abdominal Exam: Soft, Normal Bowel Sounds. absent: Tenderness - Extremities Exam Extremities Exam: Normal Inspection - Back Exam Back Exam: NORMAL INSPECTION - Neurological Exam Neurological Exam: Alert, Awake - Psychiatric Exam Psychiatric exam: Normal Affect, Normal Mood - Skin Skin Exam: Dry, Intact, Normal Color, Warm Assessment and Plan - Assessment and Plan (Free Text) Assessment: 66 year old male with hx of CKD, chronic pleural effusion, chronic anemia, NIDDM2, HTN currently pending D/C upon stabilization of pt's deconditioned state. Found to be anemic yesterday s/p 1 unit pRBC. S/P Kidney Biopsy this admission. Plan: #Deconditioned 2/2 to Chronic Disease -Pt noted to have weakness and gait instability. 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 -Was unable to participate in PT yesterday due to anemia, resolved today, PT today # Anemia, Acute on Chronic -8.7 today s/p 1U pRBC. Weakness/lightheadedness improved. -Likely combination of anemia of chronic disease (indolent MM) and iron deficiency anemia -Iron studies reviewed -vitamin B12 and folate WNL -Started on ferrous sulfate PO BID # Proteinuria of undiagnosed cause -UA +protein>500, +glucose>500 -Nephro consulted appreciated (Dr. Luz) -Biopsy completed this admission; management will depend on results. Nephrology on board. -PTH elevated, Vit D low # URI -Afebrile, no leukocytosis, cough improving -ABX DC'd as Cxray was negative for infiltrates. -Repeat Cxray (06/02): Left-sided pleural effusion stable, no acute changes -duonebs prn sob # Bilateral leg edema likely due to CHF -Euvolemic on remainder of exam. Echo reviewed, unremarkable -[place] 4k[place] [id number] [place] 03/2017 -Lasix 20 BID -BL duplex doppler negative for DVT -Cardio consulted-appreciate recommendations -Norvasc decreased as it may be contributing to LE edema # HTN (hypertension) -Elevated this morning in 170's systolic this morning. -Coreg dosage increased to 25mg. -decreased amlodipine to 5mg -Lisinopril 30mg, will titrate up as per Nephrology -Will continue to monitor -ASA 81mg #Blurry Vision, new onset -No complaints of blurry vision today. Physical exam unremarkable. No other focal neurological deficits. No prior hx of CVA. Fundoscope exam unremarkable. Possibly malingering. -Artificial tears BID -Head CT- no acute changes -Neuro consult appreciated -F/U B12, Folate, RPR- wnl -Occupational therapy # Pleural effusion, stable -Had thoracocentesis in the past -appears stable on imaging #Chronic kidney disease, stage III (moderate) -GFR 36, CrCl 37 #Diabetes mellitus type 2 in nonobese -stable -c/w home meds #DVT prophylaxis -Heparin 5000 SC q8H . Pt has been refusing heparin. scds # Diet -Renal Diet
--- NOTE | 2017-06-07 23:09 | CP.PCM.PN ---
Objective - Vital Signs/Intake and Output Vital Signs (last 24 hours): Temp Pulse Resp BP Pulse Ox 97.8 F 69 20 174/72 H 93 L 06/07/17 15:50 06/07/17 21:43 06/07/17 15:50 06/07/17 21:43 06/07/17 15:50 - Medications Medications: Current Medications Albuterol/Ipratropium (Duoneb 3 Mg/0.5 Mg (3 Ml) Ud) 3 ml INH RQ6 PRN PRN Reason: Shortness of Breath Last Admin: 06/03/17 23:55 Dose: 3 ml Amlodipine Besylate (Norvasc) 5 mg PO DAILY [facility] Artificial Tears (Artificial Tears) 2 drop OU Q4 PRN PRN Reason: Dry eyes Last Admin: 06/02/17 15:09 Dose: 2 drop Aspirin (Ecotrin) 81 mg PO DAILY [facility] Last Admin: 06/07/17 10:26 Dose: 81 mg Atorvastatin Calcium (Lipitor) 40 mg PO DAILY [facility] Last Admin: 06/07/17 10:25 Dose: 40 mg Calcium Acetate (Phoslo) 1,334 mg PO WM [facility] Last Admin: 06/07/17 18:16 Dose: Not Given Carvedilol (Coreg) 25 mg PO Q12 [facility] Last Admin: 06/07/17 21:43 Dose: 25 mg Clonidine HCl (Catapres) 0.1 mg PO BID [facility] Last Admin: 06/07/17 17:04 Dose: 0.1 mg Docusate Sodium (Colace) 100 mg PO BID [facility] Last Admin: 06/07/17 17:04 Dose: 100 mg Ergocalciferol (Drisdol 50,000 Intl Units Cap) 1 cap PO Q7D [facility] Last Admin: 06/02/17 15:13 Dose: 1 cap Ferrous Sulfate (Feosol) 325 mg PO BID [facility] Last Admin: 06/07/17 17:04 Dose: 325 mg Furosemide (Lasix) 20 mg PO QPM [facility] Last Admin: 06/06/17 17:10 Dose: 20 mg Furosemide (Lasix) 20 mg PO DAILY [facility] Last Admin: 06/07/17 10:24 Dose: 20 mg Gabapentin (Neurontin) 100 mg PO BID [facility] Last Admin: 06/07/17 17:04 Dose: 100 mg Glipizide (Glucotrol) 10 mg PO ACD [facility] Last Admin: 06/07/17 17:08 Dose: 10 mg Glipizide (Glucotrol) 15 mg PO ACB [facility] Last Admin: 06/07/17 10:25 Dose: 15 mg Guaifenesin/Dextromethorphan (Robitussin Dm) 10 ml PO Q6 PRN PRN Reason: Cough Last Admin: 06/03/17 23:56 Dose: 10 ml Heparin Sodium (Porcine) (Heparin) 5,000 units SC Q8 [facility] PRN Reason: Protocol Last Admin: 06/07/17 17:05 Dose: Not Given Hydralazine HCl (Apresoline) 100 mg PO TID [facility] Lisinopril (Zestril) 30 mg PO DAILY [facility] Last Admin: 06/07/17 10:24 Dose: 30 mg Mirtazapine (Remeron) 30 mg PO HS [facility] Last Admin: 06/07/17 21:43 Dose: 30 mg Risperidone (Risperdal Tab) 3 mg PO HS [facility] Last Admin: 06/07/17 21:43 Dose: 3 mg - Labs Labs: 06/07/17 06:26 06/07/17 06:26 PT 10.4 Seconds (9.8-13.1) 05/30/17 17:30 INR 0.9 (0.9-1.2) 05/30/17 17:30 APTT 35.2 Seconds (25.6-37.1) 05/30/17 17:30 Assessment and Plan (1) Acute kidney injury superimposed on chronic kidney disease Status: Acute (2) Nephrotic syndrome Status: Acute (3) Hypertensive CKD (chronic kidney disease) Status: Acute (4) Anemia of renal disease Status: Acute (5) Chronic kidney disease-mineral and bone disorder Status: Acute (6) CHF (congestive heart failure) Status: Acute
[2017-06-08] MEDS ORDERED: Dextrose 50% SYRINGE Inj (50 ml) IV PRN (08:03)
[2017-06-08] MEDS ORDERED: Glucagon Recombinant 1 mg Inj IM PRN (08:03)
--- NOTE | 2017-06-08 08:04 | CP.PCM.PN ---
Subjective - Date & Time of Evaluation Date of Evaluation: 06/08/17 Time of Evaluation: 08:01 - Subjective Subjective: Ms. Durand was seen and examined at the bedside. He is alert, oriented in all spheres. He claims of blurry vision, but denies any headache, lightheadedness, weakness, nausea, or vomiting. He further claims of bumping to leone especially around his room. He further claims of being cooperative to his physical therapy. There was no untoward events overnight. Objective - Vital Signs/Intake and Output Vital Signs (last 24 hours): Temp Pulse Resp BP Pulse Ox 97.8 F 67 18 173/76 H 94 L 06/08/17 00:15 06/08/17 00:15 06/08/17 00:15 06/08/17 00:15 06/08/17 00:15 - Medications Medications: Current Medications Albuterol/Ipratropium (Duoneb 3 Mg/0.5 Mg (3 Ml) Ud) 3 ml INH RQ6 PRN PRN Reason: Shortness of Breath Last Admin: 06/03/17 23:55 Dose: 3 ml Amlodipine Besylate (Norvasc) 5 mg PO DAILY [facility] Artificial Tears (Artificial Tears) 2 drop OU Q4 PRN PRN Reason: Dry eyes Last Admin: 06/02/17 15:09 Dose: 2 drop Aspirin (Ecotrin) 81 mg PO DAILY [facility] Last Admin: 06/07/17 10:26 Dose: 81 mg Atorvastatin Calcium (Lipitor) 40 mg PO DAILY [facility] Last Admin: 06/07/17 10:25 Dose: 40 mg Calcium Acetate (Phoslo) 1,334 mg PO WM [facility] Last Admin: 06/07/17 18:16 Dose: Not Given Carvedilol (Coreg) 25 mg PO Q12 [facility] Last Admin: 06/07/17 21:43 Dose: 25 mg Clonidine HCl (Catapres) 0.1 mg PO BID [facility] Last Admin: 06/07/17 17:04 Dose: 0.1 mg Docusate Sodium (Colace) 100 mg PO BID [facility] Last Admin: 06/07/17 17:04 Dose: 100 mg Ergocalciferol (Drisdol 50,000 Intl Units Cap) 1 cap PO Q7D [facility] Last Admin: 06/02/17 15:13 Dose: 1 cap Ferrous Sulfate (Feosol) 325 mg PO BID [facility] Last Admin: 06/07/17 17:04 Dose: 325 mg Furosemide (Lasix) 20 mg PO QPM [facility] Last Admin: 06/06/17 17:10 Dose: 20 mg Furosemide (Lasix) 20 mg PO DAILY [facility] Last Admin: 06/07/17 10:24 Dose: 20 mg Gabapentin (Neurontin) 100 mg PO BID [facility] Last Admin: 06/07/17 17:04 Dose: 100 mg Glipizide (Glucotrol) 10 mg PO ACD [facility] Last Admin: 06/07/17 17:08 Dose: 10 mg Glipizide (Glucotrol) 15 mg PO ACB [facility] Last Admin: 06/07/17 10:25 Dose: 15 mg Guaifenesin/Dextromethorphan (Robitussin Dm) 10 ml PO Q6 PRN PRN Reason: Cough Last Admin: 06/03/17 23:56 Dose: 10 ml Heparin Sodium (Porcine) (Heparin) 5,000 units SC Q8 [facility] PRN Reason: Protocol Last Admin: 06/08/17 00:50 Dose: Not Given Hydralazine HCl (Apresoline) 100 mg PO TID [facility] Lisinopril (Zestril) 30 mg PO DAILY [facility] Last Admin: 06/07/17 10:24 Dose: 30 mg Mirtazapine (Remeron) 30 mg PO HS [facility] Last Admin: 06/07/17 21:43 Dose: 30 mg Risperidone (Risperdal Tab) 3 mg PO HS [facility] Last Admin: 06/07/17 21:43 Dose: 3 mg - Labs Labs: 06/07/17 06:26 06/07/17 06:26 PT 10.4 Seconds (9.8-13.1) 05/30/17 17:30 INR 0.9 (0.9-1.2) 05/30/17 17:30 APTT 35.2 Seconds (25.6-37.1) 05/30/17 17:30 - Constitutional Appears: No Acute Distress - Head Exam Head Exam: ATRAUMATIC - Neurological Exam Neurological Exam: Alert, Awake, CN II-XII Intact, Normal Gait, Oriented x3 Neuro motor strength exam: Left Upper Extremity: 5, Right Upper Extremity: 5, Left Lower Extremity: 5, Right Lower Extremity: 5 Additional comments: Neurological unchanged from previous examination. Assessment and Plan (1) urry vision, bilateral Assessment & Plan: Case discussed with Dr. Das, continue all current medical, physical, and occupational therapies. This maybe a malingering case. There is no new recommendation from neurology. Status: Acute
[2017-06-08 08:20] LABS: HEMATOCRIT 26.6 % (35.0-51.0); MEAN CELL VOLUME 93.4 fl (80.0-94.0); MEAN CORPUSCULAR HEMOGLOBIN 31.1 pg (27.0-31.0); MEAN CORPUSCULAR HGB CONC 33.3 g/dL (33.0-37.0); RED CELL DISTRIBUTION WIDTH 15.4 % (11.5-14.5)
[2017-06-08 08:30] LABS: BILIRUBIN,TOTAL 0.1 mg/dl (0.2-1.3); CALCIUM 8.2 mg/dL (8.4-10.2); POTASSIUM 5.1 MMOL/L (3.6-5.0); TOTAL PROTEIN 5.5 G/DL (6.3-8.2)
[2017-06-08] MEDS ORDERED: NIFEdipine 60 mg ER Tab PO SCH (10:15)
--- NOTE | 2017-06-08 11:30 | CP.PCM.PN ---
Subjective - Date & Time of Evaluation Date of Evaluation: 06/08/17 Time of Evaluation: 09:00 - Subjective Subjective: Overnight pt had BS of 88, given a snack and BS returned to normal range. Pt this morning states that he occasionally gets dizzy and has discomfort in his lower extremities. Also claiming no change in blurry vision. Denies CP, SOB, n/v /d, cough, fever, chills, etc. Objective - Vital Signs/Intake and Output Vital Signs (last 24 hours): Temp Pulse Resp BP Pulse Ox 97.3 F L 63 20 178/72 H 94 L 06/08/17 08:28 06/08/17 08:28 06/08/17 08:28 06/08/17 08:15 06/08/17 08:28 - Medications Medications: Current Medications Acetaminophen (Tylenol 325mg Tab) 650 mg PO Q4 PRN PRN Reason: Pain, Mild (1-3) Albuterol/Ipratropium (Duoneb 3 Mg/0.5 Mg (3 Ml) Ud) 3 ml INH RQ6 PRN PRN Reason: Shortness of Breath Last Admin: 06/03/17 23:55 Dose: 3 ml Artificial Tears (Artificial Tears) 2 drop OU Q4 PRN PRN Reason: Dry eyes Last Admin: 06/02/17 15:09 Dose: 2 drop Aspirin (Ecotrin) 81 mg PO DAILY [facility] Last Admin: 06/08/17 08:15 Dose: 81 mg Atorvastatin Calcium (Lipitor) 40 mg PO DAILY [facility] Last Admin: 06/08/17 08:15 Dose: 40 mg Calcium Acetate (Phoslo) 1,334 mg PO WM [facility] Last Admin: 06/08/17 08:17 Dose: 1,334 mg Carvedilol (Coreg) 25 mg PO Q12 [facility] Last Admin: 06/08/17 08:11 Dose: 25 mg Clonidine HCl (Catapres) 0.1 mg PO BID [facility] Last Admin: 06/08/17 08:13 Dose: 0.1 mg Dextrose (Dextrose 50% Inj) 0 ml IV STAT PRN; Protocol PRN Reason: Hypoglycemia Protocol Dextrose (Glutose 15) 0 gm PO ONCE PRN; Protocol PRN Reason: Hypoglycemia Protocol Docusate Sodium (Colace) 100 mg PO BID [facility] Last Admin: 06/08/17 08:14 Dose: 100 mg Ergocalciferol (Drisdol 50,000 Intl Units Cap) 1 cap PO Q7D [facility] Last Admin: 06/02/17 15:13 Dose: 1 cap Ferrous Sulfate (Feosol) 325 mg PO BID [facility] Last Admin: 06/08/17 08:09 Dose: 325 mg Furosemide (Lasix) 20 mg PO QPM [facility] Last Admin: 06/06/17 17:10 Dose: 20 mg Furosemide (Lasix) 40 mg PO DAILY [facility] Gabapentin (Neurontin) 100 mg PO BID [facility] Last Admin: 06/08/17 08:09 Dose: 100 mg Glipizide (Glucotrol) 10 mg PO ACD [facility] Last Admin: 06/07/17 17:08 Dose: 10 mg Glipizide (Glucotrol) 15 mg PO ACB [facility] Last Admin: 06/08/17 08:11 Dose: 15 mg Glucagon (Glucagen Diagnostic Kit) 0 mg IM STAT PRN; Protocol PRN Reason: Hypoglycemia Protocol Guaifenesin/Dextromethorphan (Robitussin Dm) 10 ml PO Q6 PRN PRN Reason: Cough Last Admin: 06/03/17 23:56 Dose: 10 ml Heparin Sodium (Porcine) (Heparin) 5,000 units SC Q8 [facility] PRN Reason: Protocol Last Admin: 06/08/17 08:17 Dose: 5,000 units Hydralazine HCl (Apresoline) 100 mg PO TID [facility] Lisinopril (Zestril) 30 mg PO DAILY [facility] Last Admin: 06/08/17 08:13 Dose: 30 mg Meclizine HCl (Antivert) 25 mg PO DAILY [facility] Mirtazapine (Remeron) 30 mg PO HS [facility] Last Admin: 06/07/17 21:43 Dose: 30 mg Nifedipine (Procardia Xl) 60 mg PO DAILY [facility] Risperidone (Risperdal Tab) 3 mg PO HS [facility] Last Admin: 06/07/17 21:43 Dose: 3 mg - Labs Labs: 06/08/17 08:03 06/08/17 08:03 PT 10.4 Seconds (9.8-13.1) 05/30/17 17:30 INR 0.9 (0.9-1.2) 05/30/17 17:30 APTT 35.2 Seconds (25.6-37.1) 12/01/17 17:30 - Constitutional Appears: Well, Non-toxic - ENT Exam ENT Exam: Mucous Membranes Moist - Respiratory Exam Respiratory Exam: Clear to Ausculation Bilateral. absent: Rales, Wheezes - Cardiovascular Exam Cardiovascular Exam: REGULAR RHYTHM, +S1, +S2. absent: Murmur - GI/Abdominal Exam GI & Abdominal Exam: Soft, Normal Bowel Sounds. absent: Tenderness - Extremities Exam Extremities Exam: Pedal Edema Additional comments: Mild-moderate pedal edema, unchanged - Neurological Exam Neurological Exam: Alert, Awake, Oriented x3 Assessment and Plan - Assessment and Plan (Free Text) Assessment: 66 year old male with hx of CKD, chronic pleural effusion, chronic anemia, NIDDM2, HTN currently pending D/C upon stabilization of pt's deconditioned state. S/P transfusion f 1 unit PRBC. Plan: #Deconditioned 2/2 to Chronic Disease -Pt noted to have weakness and gait instability. Evaluated by physical therapy- Assisted devices needed for safe discharge. Recommending TCU. -Social has arranged assisted devices. -C/w physical therapy # Anemia, Acute on Chronic, resolved -8.9 today s/p 1U PRBC. Weakness/lightheadedness improved. Mild complaints dizziness (meclezine ordered) -Likely combination of anemia of chronic disease (indolent MM) and iron deficiency anemia -Iron studies reviewed -vitamin B12 and folate WNL -C/w ferrous sulfate PO BID # Proteinuria of undiagnosed cause -UA +protein>500, +glucose>500 -Nephro consulted appreciated (Dr. Luz) -Biopsy completed this admission; management will depend on results. Nephrology on board. F/U Biopsy -PTH elevated, Vit D low # HTN (hypertension), uncontrolled -Elevated this morning in 170's systolic -Coreg dosage increased to 25mg. Started on Clonidine and Lasix increased to 40mg by Nephroloy -Lisinopril 30mg -Will continue to monitor -ASA 81mg # Bilateral leg edema likely due to CHF -Improving Echo reviewed, unremarkable -B[place] 4k, [place] [id number] in 03/2017 -Lasix 20 BID -BL duplex doppler negative for DVT -Cardio consulted-appreciate recommendations -Norvasc decreased as it may be contributing to LE edema #Blurry Vision, new onset -No complaints of blurry vision today. Physical exam unremarkable. No other focal neurological deficits. No prior hx of CVA. Fundoscope exam unremarkable. Possibly malingering. -Artificial tears BID -Head CT- no acute changes -Neuro consult appreciated -F/U B12, Folate, RPR- wnl -Occupational therapy # Pleural effusion, stable -Had thoracocentesis in the past -appears stable on imaging #Chronic kidney disease, stage III (moderate) -GFR 36, CrCl 37 #Diabetes mellitus type 2 in nonobese -stable -c/w home meds #DVT prophylaxis -Heparin 5000 SC q8H . Pt has been refusing heparin. scds # Diet -Renal Diet
[2017-06-08] MEDS: NIFEdipine 60 mg ER Tab PO SCH (21:38)
[2017-06-09] MEDS: NIFEdipine 60 mg ER Tab PO SCH ×2 (09:48→22:06)
[2017-06-09] MEDS: Ergocalciferol 50,000 Intl Units Cap PO SCH (09:54)
--- NOTE | 2017-06-09 10:05 | CP.PCM.PN ---
Subjective - Date & Time of Evaluation Date of Evaluation: 06/09/17 Time of Evaluation: 09:58 - Subjective Subjective: Mr. Durand was seen and examined at the bedside. He is alert, oriented in all spheres. He denies any headache, dizziness, lightheadedness, nausea, or vomiting. He still complains of blurred vision. He said that it cause him to bumped to [place].There was no untoward events overnight. Objective - Vital Signs/Intake and Output Vital Signs (last 24 hours): Temp Pulse Resp BP Pulse Ox 97.6 F 65 20 135/71 90 L 06/09/17 07:37 06/09/17 07:37 06/09/17 07:37 06/09/17 09:49 06/09/17 07:37 - Medications Medications: Current Medications Acetaminophen (Tylenol 325mg Tab) 650 mg PO Q6 [facility] Last Admin: 06/09/17 04:00 Dose: Not Given Albuterol/Ipratropium (Duoneb 3 Mg/0.5 Mg (3 Ml) Ud) 3 ml INH RQ6 PRN PRN Reason: Shortness of Breath Last Admin: 06/03/17 23:55 Dose: 3 ml Artificial Tears (Artificial Tears) 2 drop OU Q4 PRN PRN Reason: Dry eyes Last Admin: 06/02/17 15:09 Dose: 2 drop Aspirin (Ecotrin) 81 mg PO DAILY [facility] Last Admin: 06/09/17 09:51 Dose: 81 mg Atorvastatin Calcium (Lipitor) 40 mg PO DAILY [facility] Last Admin: 06/09/17 09:50 Dose: 40 mg Calcium Acetate (Phoslo) 1,334 mg PO WM [facility] Last Admin: 06/09/17 08:00 Dose: 1,334 mg Carvedilol (Coreg) 25 mg PO Q12 [facility] Last Admin: 06/09/17 09:50 Dose: 25 mg Clonidine HCl (Catapres) 0.1 mg PO BID [facility] Last Admin: 06/09/17 09:51 Dose: 0.1 mg Dextrose (Dextrose 50% Inj) 0 ml IV STAT PRN; Protocol PRN Reason: Hypoglycemia Protocol Dextrose (Glutose 15) 0 gm PO ONCE PRN; Protocol PRN Reason: Hypoglycemia Protocol Docusate Sodium (Colace) 100 mg PO BID [facility] Last Admin: 06/09/17 09:50 Dose: 100 mg Ergocalciferol (Drisdol 50,000 Intl Units Cap) 1 cap PO Q7D [facility] Last Admin: 06/09/17 09:54 Dose: 1 cap Ferrous Sulfate (Feosol) 325 mg PO BID [facility] Last Admin: 06/09/17 09:50 Dose: 325 mg Furosemide (Lasix) 20 mg PO QPM [facility] Last Admin: 06/08/17 17:31 Dose: Not Given Furosemide (Lasix) 40 mg PO DAILY [facility] Last Admin: 06/09/17 09:49 Dose: 40 mg Gabapentin (Neurontin) 100 mg PO BID [facility] Last Admin: 06/09/17 09:50 Dose: 100 mg Glipizide (Glucotrol) 10 mg PO ACD [facility] Last Admin: 06/08/17 16:36 Dose: 10 mg Glipizide (Glucotrol) 15 mg PO ACB [facility] Last Admin: 06/09/17 09:51 Dose: 15 mg Glucagon (Glucagen Diagnostic Kit) 0 mg IM STAT PRN; Protocol PRN Reason: Hypoglycemia Protocol Guaifenesin/Dextromethorphan (Robitussin Dm) 10 ml PO Q6 PRN PRN Reason: Cough Last Admin: 06/03/17 23:56 Dose: 10 ml Heparin Sodium (Porcine) (Heparin) 5,000 units SC Q8 [facility] PRN Reason: Protocol Last Admin: 06/09/17 09:58 Dose: Not Given Hydralazine HCl (Apresoline) 100 mg PO TID [facility] Lisinopril (Zestril) 30 mg PO DAILY [facility] Last Admin: 06/09/17 09:56 Dose: 30 mg Meclizine HCl (Antivert) 25 mg PO BID [facility] Last Admin: 06/09/17 09:48 Dose: 25 mg Mirtazapine (Remeron) 30 mg PO HS [facility] Last Admin: 06/08/17 21:39 Dose: 30 mg Nifedipine (Procardia Xl) 60 mg PO Q12H [facility] Last Admin: 06/09/17 09:48 Dose: 60 mg Risperidone (Risperdal Tab) 3 mg PO HS [facility] Last Admin: 06/08/17 21:39 Dose: 3 mg - Labs Labs: 06/08/17 08:03 06/08/17 08:03 PT 10.4 Seconds (9.8-13.1) 05/30/17 17:30 INR 0.9 (0.9-1.2) 05/30/17 17:30 APTT 35.2 Seconds (25.6-37.1) 05/30/17 17:30 - Constitutional Appears: No Acute Distress - Head Exam Head Exam: ATRAUMATIC - Neurological Exam Neurological Exam: Alert, Awake, Normal Gait, Oriented x3 Neuro motor strength exam: Left Upper Extremity: 5, Right Upper Extremity: 5, Left Lower Extremity: 5, Right Lower Extremity: 5 Additional comments: Neurological unchanged from previous examination. Assessment and Plan (1) Blurry vision, bilateral Assessment & Plan: Case discussed with Dr. Das, with persistent blurred vision, recommends MRI of the brain without contrast, MRA of the head and neck. Continue all current medical, physical, and occupational therapies. Status: Acute
--- NOTE | 2017-06-09 11:11 | RAD ---
HISTORY: worsening pleural effusions? COMPARISON: Portable chest 06/02/2017. TECHNIQUE: Chest PA and lateral FINDINGS: LUNGS: Limited patchy infrahilar cyst density is improved with interval adequate definition of the right hemidiaphragm now present. Persistent left basilar airspace disease not excluded underlying left pleural effusion. . PLEURA: Prominent left pleural effusion appears of slightly increased with none identified at the right. No pneumothorax bilaterally. CARDIOVASCULAR: Cardiac silhouette remains obscured by large left pleural effusion. No definite pulmonary vascular derangement appreciated. OSSEOUS STRUCTURES: No significant abnormalities. VISUALIZED UPPER ABDOMEN: Normal. OTHER FINDINGS: None. IMPRESSION: Mildly increased large left pleural effusion evident with underlying left basilar airspace disease not excluded. Improving medial basilar/ infrahilar patchy infiltrate or atelectasis noted at the right. No right pleural effusion.
--- NOTE | 2017-06-09 14:29 | CP.PCM.PN ---
Subjective - Date & Time of Evaluation Date of Evaluation: 06/09/17 Time of Evaluation: 08:00 - Subjective Subjective: No acute overnight events.Pt seen and evaluated this morning. States he still has blurry vision, unchanged. Reports that he has been able to ambulating without assistance and feels stronger today. Reports not having a bowel movement in 3 days. Denies SOB, cough, chest pain, calf pain. Objective - Vital Signs/Intake and Output Vital Signs (last 24 hours): Temp Pulse Resp BP Pulse Ox 97.6 F 65 20 135/71 90 L 06/09/17 07:37 06/09/17 07:37 06/09/17 07:37 06/09/17 09:49 06/09/17 07:37 - Medications Medications: Current Medications Acetaminophen (Tylenol 325mg Tab) 650 mg PO Q6 [facility] Last Admin: 06/09/17 10:05 Dose: 650 mg Albuterol/Ipratropium (Duoneb 3 Mg/0.5 Mg (3 Ml) Ud) 3 ml INH RQ6 PRN PRN Reason: Shortness of Breath Last Admin: 06/03/17 23:55 Dose: 3 ml Artificial Tears (Artificial Tears) 2 drop OU Q4 PRN PRN Reason: Dry eyes Last Admin: 06/02/17 15:09 Dose: 2 drop Aspirin (Ecotrin) 81 mg PO DAILY [facility] Last Admin: 06/09/17 09:51 Dose: 81 mg Atorvastatin Calcium (Lipitor) 40 mg PO DAILY [facility] Last Admin: 06/09/17 09:50 Dose: 40 mg Calcium Acetate (Phoslo) 1,334 mg PO WM [facility] Last Admin: 06/09/17 08:00 Dose: 1,334 mg Carvedilol (Coreg) 25 mg PO Q12 [facility] Last Admin: 06/09/17 09:50 Dose: 25 mg Clonidine HCl (Catapres) 0.1 mg PO BID [facility] Last Admin: 06/09/17 09:51 Dose: 0.1 mg Dextrose (Dextrose 50% Inj) 0 ml IV STAT PRN; Protocol PRN Reason: Hypoglycemia Protocol Dextrose (Glutose 15) 0 gm PO ONCE PRN; Protocol PRN Reason: Hypoglycemia Protocol Docusate Sodium (Colace) 100 mg PO BID [facility] Last Admin: 06/09/17 09:50 Dose: 100 mg Ergocalciferol (Drisdol 50,000 Intl Units Cap) 1 cap PO Q7D [facility] Last Admin: 06/09/17 09:54 Dose: 1 cap Ferrous Sulfate (Feosol) 325 mg PO BID [facility] Last Admin: 06/09/17 09:50 Dose: 325 mg Furosemide (Lasix) 20 mg PO QPM [facility] Last Admin: 06/08/17 17:31 Dose: Not Given Furosemide (Lasix) 40 mg PO DAILY [facility] Last Admin: 06/09/17 09:49 Dose: 40 mg Gabapentin (Neurontin) 100 mg PO BID [facility] Last Admin: 06/09/17 09:50 Dose: 100 mg Glipizide (Glucotrol) 10 mg PO ACD [facility] Last Admin: 06/08/17 16:36 Dose: 10 mg Glipizide (Glucotrol) 15 mg PO ACB [facility] Last Admin: 06/09/17 09:51 Dose: 15 mg Glucagon (Glucagen Diagnostic Kit) 0 mg IM STAT PRN; Protocol PRN Reason: Hypoglycemia Protocol Guaifenesin/Dextromethorphan (Robitussin Dm) 10 ml PO Q6 PRN PRN Reason: Cough Last Admin: 06/03/17 23:56 Dose: 10 ml Heparin Sodium (Porcine) (Heparin) 5,000 units SC Q8 [facility] PRN Reason: Protocol Last Admin: 06/09/17 09:58 Dose: Not Given Hydralazine HCl (Apresoline) 100 mg PO TID [facility] Lisinopril (Zestril) 30 mg PO DAILY [facility] Last Admin: 06/09/17 09:56 Dose: 30 mg Meclizine HCl (Antivert) 25 mg PO BID [facility] Last Admin: 06/09/17 09:48 Dose: 25 mg Mirtazapine (Remeron) 30 mg PO HS [facility] Last Admin: 06/08/17 21:39 Dose: 30 mg Nifedipine (Procardia Xl) 60 mg PO Q12H [facility] Last Admin: 06/09/17 09:48 Dose: 60 mg Risperidone (Risperdal Tab) 3 mg PO HS [facility] Last Admin: 06/08/17 21:39 Dose: 3 mg - Labs Labs: 06/08/17 08:03 06/08/17 08:03 PT 10.4 Seconds (9.8-13.1) 05/30/17 17:30 INR 0.9 (0.9-1.2) 05/30/17 17:30 APTT 35.2 Seconds (25.6-37.1) 05/30/17 17:30 - Constitutional Appears: Well, Non-toxic - ENT Exam ENT Exam: Mucous Membranes Moist - Respiratory Exam Respiratory Exam: Clear to Ausculation Bilateral, NORMAL BREATHING PATTERN. absent: Rales, Rhonchi, Wheezes, Respiratory Distress - Cardiovascular Exam Cardiovascular Exam: REGULAR RHYTHM, +S1, +S2. absent: Murmur - GI/Abdominal Exam GI & Abdominal Exam: Soft, Normal Bowel Sounds. absent: Tenderness - Extremities Exam Extremities Exam: Pedal Edema (+1 pitting edema). absent: Calf Tenderness - Neurological Exam Neurological Exam: Alert, Awake, Oriented x3 - Psychiatric Exam Psychiatric exam: Normal Mood Assessment and Plan - Assessment and Plan (Free Text) Assessment: 66 year old male with hx of CKD, chronic pleural effusion, chronic anemia, NIDDM2, HTN currently pending D/C upon stabilization of pt's deconditioned state. S/P transfusion f 1 unit PRBC. Neurology recommending Brain MRI, Head and Neck MRA w/o contrast to evaluate blurry vision Plan: #Deconditioned 2/2 to Chronic Disease -Pt's weakness improving. Pt is now ambulating without assistance. -Pt noted to have weakness and gait instability. Evaluated by physical therapy- Assisted devices needed for safe discharge. Recommending TCU. -Social has arranged assisted devices. -C/w physical therapy. PT to teach pt how to use assisted device # Anemia, Acute on Chronic, resolved -8.9 today s/p 1U PRBC. Weakness/lightheadedness improved. Mild complaints dizziness (meclezine ordered) -Likely combination of anemia of chronic disease (indolent MM) and iron deficiency anemia -Iron studies reviewed -vitamin B12 and folate WNL -C/w ferrous sulfate PO BID # Proteinuria of undiagnosed cause -UA +protein>500, +glucose>500 -Nephro consulted appreciated (Dr. Luz) -Biopsy completed this admission; management will depend on results. Nephrology on board. F/U Biopsy -PTH elevated, Vit D low # HTN (hypertension), uncontrolled -Normotensive -Coreg dosage increased to 25mg. Started on Clonidine and Lasix increased to 40mg by Nephroloy -Lisinopril 30mg -Will continue to monitor -ASA 81mg # Bilateral leg edema likely due to CHF -Improving Echo reviewed, unremarkable -B[place] 4k, [place] [id number] in 03/2017 -Lasix 20 BID -BL duplex doppler negative for DVT -Cardio consulted-appreciate recommendations -Norvasc decreased as it may be contributing to LE edema #Blurry Vision, new onset -No complaints of blurry vision today. Physical exam unremarkable. No other focal neurological deficits. No prior hx of CVA. Fundoscope exam unremarkable. Possibly malingering. -Artificial tears BID -Head CT- no acute changes -Neuro consult appreciated- Brain MRI, MRA Head and Neck -B12, Folate, RPR- wnl # Pleural effusion, stable -Had thoracocentesis in the past -appears stable on imaging #Chronic kidney disease, stage III (moderate) -GFR 36, CrCl 37 #Diabetes mellitus type 2 in nonobese -stable -c/w home meds #DVT prophylaxis -Heparin 5000 SC q8H . Pt has been refusing heparin. scds # Diet -Renal Diet
[2017-06-10 06:23] LABS: ALB/GLOB RATIO 0.9 (1.0-2.1); ALKALINE PHOSPHATASE 199 U/L (38-126); ALT/SGPT 88 U/L (21-72); AST/SGOT 39 U/L (17-59); BILIRUBIN,TOTAL < 0.1 mg/dl (0.2-1.3); BLOOD UREA NITROGEN 74 mg/dl (9-20); CARBON DIOXIDE 21 mmol/L (22-30); CHLORIDE 112 mmol/L (98-107); GFR AFRICAN-AMERICAN 31; GLUCOSE,RANDOM 123 mg/dL (75-110); PHOSPHOROUS 6.2 mg/dl (2.5-4.5); POTASSIUM 5.4 MMOL/L (3.6-5.0); SODIUM 139 mmol/l (132-148); TOTAL PROTEIN 5.4 G/DL (6.3-8.2)
[2017-06-10 06:24] LABS: BASO # 0.1 K/uL (0.0-0.2); BASO % 1.6 % (0.0-2.0); EOS # 0.2 K/uL (0.0-0.7); EOS % 2.3 % (0.0-4.0); LYMPH # 1.5 K/uL (1.0-4.3); LYMPH % 22.1 % (20.0-40.0); MEAN CELL VOLUME 93.8 fl (80.0-94.0); MEAN CORPUSCULAR HEMOGLOBIN 31.4 pg (27.0-31.0); MEAN CORPUSCULAR HGB CONC 33.4 g/dL (33.0-37.0); MEAN PLATELET VOLUME 10.5 fl (7.2-11.7); MONO # 0.5 K/uL (0.0-0.8); MONO % 7.4 % (0.0-10.0); NEUT # 4.4 K/uL (1.8-7.0); NEUT % 66.6 % (50.0-75.0); RED CELL DISTRIBUTION WIDTH 15.3 % (11.5-14.5); WHITE BLOOD COUNT 6.6 K/uL (4.8-10.8)
--- NOTE | 2017-06-10 07:08 | CP.PCM.PN ---
Subjective - Date & Time of Evaluation Date of Evaluation: 06/09/17 Time of Evaluation: 12:30 - Subjective Subjective: Patient denies shortness of breath; no nausea/vomiting reported; Objective - Vital Signs/Intake and Output Vital Signs (last 24 hours): Temp Pulse Resp BP Pulse Ox 97.4 F L 68 19 127/56 L 96 06/10/17 00:00 06/10/17 00:00 06/10/17 00:00 06/10/17 00:00 06/10/17 00:00 - Medications Medications: Current Medications Acetaminophen (Tylenol 325mg Tab) 650 mg PO Q6 [facility] Last Admin: 06/10/17 04:44 Dose: 650 mg Albuterol/Ipratropium (Duoneb 3 Mg/0.5 Mg (3 Ml) Ud) 3 ml INH RQ6 PRN PRN Reason: Shortness of Breath Last Admin: 06/03/17 23:55 Dose: 3 ml Artificial Tears (Artificial Tears) 2 drop OU Q4 PRN PRN Reason: Dry eyes Last Admin: 06/02/17 15:09 Dose: 2 drop Aspirin (Ecotrin) 81 mg PO DAILY [facility] Last Admin: 06/09/17 09:51 Dose: 81 mg Atorvastatin Calcium (Lipitor) 40 mg PO DAILY [facility] Last Admin: 06/09/17 09:50 Dose: 40 mg Calcium Acetate (Phoslo) 1,334 mg PO WM [facility] Last Admin: 06/09/17 18:11 Dose: Not Given Carvedilol (Coreg) 25 mg PO Q12 [facility] Last Admin: 06/09/17 22:03 Dose: 25 mg Cholecalciferol (Vitamin D) 2,000 iu PO DAILY [facility] Clonidine HCl (Catapres) 0.1 mg PO BID [facility] Last Admin: 06/09/17 18:10 Dose: Not Given Cyanocobalamin (Vitamin B12 1000 Mcg Tab) 1,000 mcg PO DAILY [facility] Dextrose (Dextrose 50% Inj) 0 ml IV STAT PRN; Protocol PRN Reason: Hypoglycemia Protocol Dextrose (Glutose 15) 0 gm PO ONCE PRN; Protocol PRN Reason: Hypoglycemia Protocol Docusate Sodium (Colace) 100 mg PO BID [facility] Last Admin: 06/09/17 18:10 Dose: Not Given Ergocalciferol (Drisdol 50,000 Intl Units Cap) 1 cap PO Q7D [facility] Last Admin: 06/09/17 09:54 Dose: 1 cap Ferrous Sulfate (Feosol) 325 mg PO BID [facility] Last Admin: 06/09/17 18:10 Dose: Not Given Furosemide (Lasix) 20 mg PO QPM [facility] Last Admin: 06/09/17 18:12 Dose: Not Given Furosemide (Lasix) 40 mg PO DAILY [facility] Last Admin: 06/09/17 09:49 Dose: 40 mg Gabapentin (Neurontin) 100 mg PO BID [facility] Last Admin: 06/09/17 18:11 Dose: Not Given Glipizide (Glucotrol) 10 mg PO ACD [facility] Last Admin: 06/09/17 18:10 Dose: Not Given Glipizide (Glucotrol) 15 mg PO ACB [facility] Last Admin: 06/09/17 09:51 Dose: 15 mg Glucagon (Glucagen Diagnostic Kit) 0 mg IM STAT PRN; Protocol PRN Reason: Hypoglycemia Protocol Guaifenesin/Dextromethorphan (Robitussin Dm) 10 ml PO Q6 PRN PRN Reason: Cough Last Admin: 06/03/17 23:56 Dose: 10 ml Heparin Sodium (Porcine) (Heparin) 5,000 units SC Q8 [facility] PRN Reason: Protocol Last Admin: 06/10/17 01:50 Dose: Not Given Hydralazine HCl (Apresoline) 100 mg PO TID [facility] Lisinopril (Zestril) 30 mg PO DAILY [facility] Last Admin: 06/09/17 09:56 Dose: 30 mg Meclizine HCl (Antivert) 25 mg PO BID [facility] Last Admin: 06/09/17 18:09 Dose: Not Given Mirtazapine (Remeron) 30 mg PO HS [facility] Last Admin: 06/09/17 22:06 Dose: 30 mg Nifedipine (Procardia Xl) 60 mg PO Q12H [facility] Last Admin: 06/09/17 22:06 Dose: 60 mg Risperidone (Risperdal Tab) 3 mg PO HS [facility] Last Admin: 06/09/17 22:06 Dose: 3 mg Sennosides (Senokot Tab) 8.6 mg PO HS [facility] Last Admin: 06/09/17 22:08 Dose: 8.6 mg - Labs Labs: 06/10/17 05:35 06/10/17 05:35 PT 10.4 Seconds (9.8-13.1) 05/30/17 17:30 INR 0.9 (0.9-1.2) 05/30/17 17:30 APTT 35.2 Seconds (25.6-37.1) 05/30/17 17:30 - Constitutional Appears: Non-toxic, No Acute Distress - Eye Exam Eye Exam: Normal appearance. absent: Scleral icterus - ENT Exam ENT Exam: Mucous Membranes Moist - Respiratory Exam Additional comments: Decreased breath sounds on L - Cardiovascular Exam Cardiovascular Exam: RRR, +S1, +S2 - GI/Abdominal Exam GI & Abdominal Exam: Soft. absent: Distended, Tenderness - Extremities Exam Additional comments: moderately edematous - Neurological Exam Neurological Exam: Alert, Awake - Skin Skin Exam: Warm. absent: Cyanosis Assessment and Plan (1) Acute kidney injury superimposed on chronic kidney disease Assessment & Plan: Relatively stable renal function with hemodynamic fluctuations; will continue lisinopril 30 mg daily and lasix 40/20 PO; Status: Acute (2) Nephrotic syndrome Assessment & Plan: Prelim results from biopsy returned late today; mainly diabetic nephropathy changes; no evidence of paraproteinemia on immunofluorescence despite markedly elevated serum kappa predominance; Mainstay of therapy is KEVIN blockade and glycemic control; overall poor prison renal prognosis; Status: Acute (3) Hypertensive CKD (chronic kidney disease) Assessment & Plan: BP better controlled with nifedipine XL 60 mg bid, continue current meds; Status: Acute (4) Anemia of renal disease Assessment & Plan: Will start EPO since BP better controlled; Status: Acute (5) Chronic kidney disease-mineral and bone disorder Status: Acute (6) CHF (congestive heart failure) Status: Acute
[2017-06-10] MEDS ORDERED: Sod Polystyrene Sulf 15 gm/60 ml Susp PO ONE (08:00)
--- NOTE | 2017-06-10 08:17 | CP.PCM.PN ---
Subjective - Date & Time of Evaluation Date of Evaluation: 06/09/17 Time of Evaluation: 12:30 - Subjective Subjective: Patient denies shortness of breath; no nausea/vomiting reported; Objective - Vital Signs/Intake and Output Vital Signs (last 24 hours): Temp Pulse Resp BP Pulse Ox 97.4 F L 61 20 128/66 90 L 06/10/17 07:43 06/10/17 07:43 06/10/17 07:43 06/10/17 07:43 06/10/17 07:43 - Medications Medications: Current Medications Acetaminophen (Tylenol 325mg Tab) 650 mg PO Q6 [facility] Last Admin: 06/10/17 04:44 Dose: 650 mg Albuterol/Ipratropium (Duoneb 3 Mg/0.5 Mg (3 Ml) Ud) 3 ml INH RQ6 PRN PRN Reason: Shortness of Breath Last Admin: 06/03/17 23:55 Dose: 3 ml Artificial Tears (Artificial Tears) 2 drop OU Q4 PRN PRN Reason: Dry eyes Last Admin: 06/02/17 15:09 Dose: 2 drop Aspirin (Ecotrin) 81 mg PO DAILY [facility] Last Admin: 06/09/17 09:51 Dose: 81 mg Atorvastatin Calcium (Lipitor) 40 mg PO DAILY [facility] Last Admin: 06/09/17 09:50 Dose: 40 mg Calcium Acetate (Phoslo) 1,334 mg PO WM [facility] Last Admin: 06/09/17 18:11 Dose: Not Given Carvedilol (Coreg) 25 mg PO Q12 [facility] Last Admin: 06/09/17 22:03 Dose: 25 mg Cholecalciferol (Vitamin D) 2,000 iu PO DAILY [facility] Clonidine HCl (Catapres) 0.1 mg PO DAILY [facility] Cyanocobalamin (Vitamin B12 1000 Mcg Tab) 1,000 mcg PO DAILY [facility] Dextrose (Dextrose 50% Inj) 0 ml IV STAT PRN; Protocol PRN Reason: Hypoglycemia Protocol Dextrose (Glutose 15) 0 gm PO ONCE PRN; Protocol PRN Reason: Hypoglycemia Protocol Docusate Sodium (Colace) 100 mg PO BID [facility] Last Admin: 06/09/17 18:10 Dose: Not Given Ergocalciferol (Drisdol 50,000 Intl Units Cap) 1 cap PO Q7D [facility] Last Admin: 06/09/17 09:54 Dose: 1 cap Ferrous Sulfate (Feosol) 325 mg PO BID [facility] Last Admin: 06/09/17 18:10 Dose: Not Given Furosemide (Lasix) 20 mg PO QPM [facility] Last Admin: 06/09/17 18:12 Dose: Not Given Furosemide (Lasix) 40 mg PO DAILY [facility] Last Admin: 06/09/17 09:49 Dose: 40 mg Gabapentin (Neurontin) 100 mg PO BID [facility] Last Admin: 06/09/17 18:11 Dose: Not Given Glipizide (Glucotrol) 10 mg PO ACD [facility] Last Admin: 06/09/17 18:10 Dose: Not Given Glipizide (Glucotrol) 15 mg PO ACB [facility] Last Admin: 06/09/17 09:51 Dose: 15 mg Glucagon (Glucagen Diagnostic Kit) 0 mg IM STAT PRN; Protocol PRN Reason: Hypoglycemia Protocol Guaifenesin/Dextromethorphan (Robitussin Dm) 10 ml PO Q6 PRN PRN Reason: Cough Last Admin: 06/03/17 23:56 Dose: 10 ml Heparin Sodium (Porcine) (Heparin) 5,000 units SC Q8 [facility] PRN Reason: Protocol Last Admin: 06/10/17 01:50 Dose: Not Given Lisinopril (Zestril) 20 mg PO DAILY [facility] Meclizine HCl (Antivert) 25 mg PO BID [facility] Last Admin: 06/09/17 18:09 Dose: Not Given Mirtazapine (Remeron) 30 mg PO HS [facility] Last Admin: 06/09/17 22:06 Dose: 30 mg Nifedipine (Procardia Xl) 60 mg PO Q12H [facility] Last Admin: 06/09/17 22:06 Dose: 60 mg Risperidone (Risperdal Tab) 3 mg PO HS [facility] Last Admin: 06/09/17 22:06 Dose: 3 mg Sennosides (Senokot Tab) 8.6 mg PO HS [facility] Last Admin: 06/09/17 22:08 Dose: 8.6 mg - Labs Labs: 06/10/17 05:35 06/10/17 05:35 PT 10.4 Seconds (9.8-13.1) 05/30/17 17:30 INR 0.9 (0.9-1.2) 05/30/17 17:30 APTT 35.2 Seconds (25.6-37.1) 05/30/17 17:30 - Constitutional Appears: Non-toxic, No Acute Distress - Head Exam Head Exam: NORMAL INSPECTION - Eye Exam Eye Exam: Normal appearance. absent: Scleral icterus - ENT Exam ENT Exam: Mucous Membranes Moist - Respiratory Exam Additional comments: markedly decreased sounds on L; - Cardiovascular Exam Cardiovascular Exam: RRR, +S1, +S2 - GI/Abdominal Exam GI & Abdominal Exam: Soft. absent: Distended, Tenderness - Extremities Exam Additional comments: moderately edematous legs - Neurological Exam Neurological Exam: Alert, Awake - Psychiatric Exam Psychiatric exam: Normal Affect, Normal Mood - Skin Skin Exam: Warm. absent: Cyanosis Assessment and Plan (1) Acute kidney injury superimposed on chronic kidney disease Assessment & Plan: Relatively stable renal function lately; increase in serum creatinine due to hemodynamic changes from diuresis and KEVIN blockade; continuing with lisinopril 30 mg daily and lasix 40 in am and 20 mg in pm; checking labs tomorrow; Status: Acute (2) Nephrotic syndrome Assessment & Plan: Prelim results from biopsy returned late today; mainly diabetic nephropathy changes; no evidence of renal involvement of paraproteinemia on immunofluorescence despite markedly elevated serum kappa predominance; Mainstay of therapy is KEVIN blockade and glycemic control; overall poor snf renal prognosis; Status: Acute (3) Hypertensive CKD (chronic kidney disease) Assessment & Plan: BP better controlled with nifedipine XL 60 mg bid, continue current meds; Status: Acute (4) Anemia of renal disease Assessment & Plan: Will start EPO since BP better controlled; Status: Acute (5) Chronic kidney disease-mineral and bone disorder Status: Acute (6) CHF (congestive heart failure) Status: Acute
[2017-06-10] MEDS ORDERED: Alum-Mag Hydrox-Simethicone Susp (30 mL) PO PRN (09:00)
[2017-06-10] MEDS ORDERED: Cholecalciferol 1,000 INTLU TAB PO SCH (09:00)
--- NOTE | 2017-06-10 09:04 | CP.PCM.PN ---
Subjective - Date & Time of Evaluation Date of Evaluation: 06/10/17 Time of Evaluation: 11:05 - Subjective Subjective: Last night, pt refused MRI complaining of abdominal pain and stating later that he felt anxious. Agreed this morning to have imaging studies done if he received sedative medication prior. Pt reports that he is having mild intermittent abdominal pain that occurs after meals starting yesterday. Reports occasionaly cough that is improving. Denies any fever, chills, cp, sob, calf pain, urinary changes. Reports regular BM. Objective - Vital Signs/Intake and Output Vital Signs (last 24 hours): Temp Pulse Resp BP Pulse Ox 97.4 F L 61 20 128/66 90 L 06/10/17 07:43 06/10/17 07:43 06/10/17 07:43 06/10/17 07:43 06/10/17 07:43 - Medications Medications: Current Medications Acetaminophen (Tylenol 325mg Tab) 650 mg PO Q6 [facility] Last Admin: 06/10/17 04:44 Dose: 650 mg Al Hydrox/Mg Hydrox/Simethicone (Maalox Plus 30 Ml) 30 ml PO Q4 PRN PRN Reason: Indigestion / Heartburn Albuterol/Ipratropium (Duoneb 3 Mg/0.5 Mg (3 Ml) Ud) 3 ml INH RQ6 PRN PRN Reason: Shortness of Breath Last Admin: 06/03/17 23:55 Dose: 3 ml Artificial Tears (Artificial Tears) 2 drop OU Q4 PRN PRN Reason: Dry eyes Last Admin: 06/02/17 15:09 Dose: 2 drop Aspirin (Ecotrin) 81 mg PO DAILY [facility] Last Admin: 06/09/17 09:51 Dose: 81 mg Atorvastatin Calcium (Lipitor) 40 mg PO DAILY [facility] Last Admin: 06/09/17 09:50 Dose: 40 mg Calcium Acetate (Phoslo) 2,001 mg PO WM [facility] Carvedilol (Coreg) 25 mg PO Q12 [facility] Last Admin: 06/09/17 22:03 Dose: 25 mg Clonidine HCl (Catapres) 0.1 mg PO DAILY [facility] Cyanocobalamin (Vitamin B12 1000 Mcg Tab) 1,000 mcg PO DAILY [facility] Dextrose (Dextrose 50% Inj) 0 ml IV STAT PRN; Protocol PRN Reason: Hypoglycemia Protocol Dextrose (Glutose 15) 0 gm PO ONCE PRN; Protocol PRN Reason: Hypoglycemia Protocol Docusate Sodium (Colace) 100 mg PO BID [facility] Last Admin: 06/09/17 18:10 Dose: Not Given Epoetin Roel (Procrit) 10,000 unit SC TTS [facility] Ergocalciferol (Drisdol 50,000 Intl Units Cap) 1 cap PO Q7D [facility] Last Admin: 06/09/17 09:54 Dose: 1 cap Ferrous Sulfate (Feosol) 325 mg PO BID [facility] Last Admin: 06/09/17 18:10 Dose: Not Given Furosemide (Lasix) 20 mg PO QPM [facility] Last Admin: 06/09/17 18:12 Dose: Not Given Furosemide (Lasix) 40 mg PO DAILY [facility] Last Admin: 06/09/17 09:49 Dose: 40 mg Gabapentin (Neurontin) 100 mg PO BID [facility] Last Admin: 06/09/17 18:11 Dose: Not Given Glipizide (Glucotrol) 10 mg PO ACD [facility] Last Admin: 06/09/17 18:10 Dose: Not Given Glipizide (Glucotrol) 15 mg PO ACB [facility] Last Admin: 06/09/17 09:51 Dose: 15 mg Glucagon (Glucagen Diagnostic Kit) 0 mg IM STAT PRN; Protocol PRN Reason: Hypoglycemia Protocol Guaifenesin/Dextromethorphan (Robitussin Dm) 10 ml PO Q6 PRN PRN Reason: Cough Last Admin: 06/03/17 23:56 Dose: 10 ml Heparin Sodium (Porcine) (Heparin) 5,000 units SC Q8 [facility] PRN Reason: Protocol Last Admin: 06/10/17 01:50 Dose: Not Given Lisinopril (Zestril) 20 mg PO DAILY [facility] Meclizine HCl (Antivert) 25 mg PO BID [facility] Last Admin: 06/09/17 18:09 Dose: Not Given Mirtazapine (Remeron) 30 mg PO HS [facility] Last Admin: 06/09/17 22:06 Dose: 30 mg Nifedipine (Procardia Xl) 60 mg PO Q12H [facility] Last Admin: 06/09/17 22:06 Dose: 60 mg Risperidone (Risperdal Tab) 3 mg PO HS [facility] Last Admin: 06/09/17 22:06 Dose: 3 mg Sennosides (Senokot Tab) 8.6 mg PO HS [facility] Last Admin: 06/09/17 22:08 Dose: 8.6 mg - Labs Labs: 06/10/17 05:35 06/10/17 05:35 PT 10.4 Seconds (9.8-13.1) 05/30/17 17:30 INR 0.9 (0.9-1.2) 05/30/17 17:30 APTT 35.2 Seconds (25.6-37.1) 05/30/17 17:30 - Constitutional Appears: Well, Non-toxic, No Acute Distress - Head Exam Head Exam: ATRAUMATIC - ENT Exam ENT Exam: Mucous Membranes Moist - Respiratory Exam Respiratory Exam: Decreased Breath Sounds, Rales, Rhonchi (Rhonchi improved after patient coughed ). absent: Accessory Muscle Use, Wheezes Additional comments: Rales BL; more pronounced in left lung bases - Cardiovascular Exam Cardiovascular Exam: REGULAR RHYTHM, +S1, +S2. absent: Murmur - GI/Abdominal Exam GI & Abdominal Exam: Tenderness (Tender to deep palpation in epigastric region ) , Normal Bowel Sounds - Extremities Exam Extremities Exam: Pedal Edema (BL LE edema up to lower knee. Pitting +2. Hoffmans negative ). absent: Calf Tenderness - Neurological Exam Neurological Exam: Alert, Awake, Oriented x3 - Psychiatric Exam Psychiatric exam: Anxious Assessment and Plan - Assessment and Plan (Free Text) Assessment: 66 year old male with hx of CKD, chronic pleural effusion, chronic anemia, NIDDM2, HTN currently pending D/C upon stabilization of pt's deconditioned state. Planning for Brain MRI today to evaluate blurry vision as per neurology' s recommendation. Pt refused imaging last night but is agreeable today with sedative prior. Will administer Ativan prior. Plan: #Deconditioned 2/2 to Chronic Disease -Pt's weakness improving. Pt is now ambulating without assistance. -Pt noted to have weakness and gait instability. -Spoke with PT: Pt taught how to use rolling walker last week. TCU was recommended. Will be evaluated today by PT. # Anemia, Acute on Chronic, resolved -8.0 today s/p 1U PRBC. dizziness resolved -Likely combination of anemia of chronic disease (indolent MM) and iron deficiency anemia -Iron studies reviewed -vitamin B12 and folate WNL -C/w ferrous sulfate PO BID -Procrit restarted by nephrology # Proteinuria of undiagnosed cause -UA +protein>500, +glucose>500 -Nephro on board (Dr. Luz) -Kidney biopsy report: Diabetic Nephropathy, Management includes RAAS blockade and Glycemic control. Poor kidney prognosis -PTH elevated, Vit D low # HTN (hypertension), uncontrolled -Normotensive -Coreg 25mg q12 PO -Lisinopril 30mg lowered to 20mg po daily by nephrology -Nifedipine 60mg BID -Clonidine 0.10 po mg daily -ASA 81mg -Will continue to monitor # Bilateral leg edema likely due to CHF -Worsened today. Pitting edema up to lower knee. Pt has bee refusing lasix x2 days. Spoke to patient about the importance of taking his medication. Patient verbalized understanding and is agreeable to take it today. Will monitor after Lasix administration. -Improving Echo reviewed, unremarkable -B[place] 4k[place] [id number] in 03/2017 -Lasix 20 daily,40mg QPM (pt has been refusing lasix for past 2 days) -BL duplex doppler negative for DVT -Cardio consulted-appreciate recommendations #Blurry Vision, new onset -No complaints of blurry vision today. Physical exam unremarkable. No other focal neurological deficits. No prior hx of CVA. Fundoscope exam unremarkable. Possibly malingering. -Artificial tears BID -Head CT- no acute changes -Neuro consult appreciated- Brain MRI, MRA Head and Neck -B12, Folate, RPR- wnl # Pleural effusion, stable -Had thoracocentesis in the past -appears stable on imaging #Chronic kidney disease, stage III (moderate) -GFR 36, CrCl 37 -Phoslo given for hyperphosphatemia -Kayexelate given for mildly elevated potassium #Diabetes mellitus type 2 in nonobese -stable -c/w home meds #DVT prophylaxis -Heparin 5000 SC q8H . Pt has been refusing heparin. scds # Diet -Renal Diet
[2017-06-10] MEDS: NIFEdipine 60 mg ER Tab PO SCH ×2 (13:12→21:25)
[2017-06-10] MEDS ORDERED: Alum-Mag Hydrox-Simethicone Susp (30 mL) PO ONE (16:32)
[2017-06-10] MEDS: EPOETIN ALFA 10,000 UNIT/ML ML SC SCH (16:45)
--- NOTE | 2017-06-10 21:59 | CP.PCM.PN ---
Subjective - Date & Time of Evaluation Date of Evaluation: 06/10/17 Time of Evaluation: 21:00 - Subjective Subjective: 66 yo homeless M w/ htn, dm, CKD IIIB/IV with nephrotic syndrome, recurrent L pleural effusion; Reports feeling well; denies refusing any of his meds (although documented repeatedly by nursing staff); shortness of breath improved; Objective - Vital Signs/Intake and Output Vital Signs (last 24 hours): Temp Pulse Resp BP Pulse Ox 97.9 F 92 H 20 153/72 H 90 L 06/10/17 16:09 06/10/17 21:25 06/10/17 16:09 06/10/17 21:25 06/10/17 16:09 - Medications Medications: Current Medications Acetaminophen (Tylenol 325mg Tab) 650 mg PO Q6 [facility] Last Admin: 06/10/17 21:30 Dose: Not Given Al Hydrox/Mg Hydrox/Simethicone (Maalox Plus 30 Ml) 30 ml PO Q4 PRN PRN Reason: Indigestion / Heartburn Albuterol/Ipratropium (Duoneb 3 Mg/0.5 Mg (3 Ml) Ud) 3 ml INH RQ6 PRN PRN Reason: Shortness of Breath Last Admin: 06/03/17 23:55 Dose: 3 ml Artificial Tears (Artificial Tears) 2 drop OU Q4 PRN PRN Reason: Dry eyes Last Admin: 06/02/17 15:09 Dose: 2 drop Aspirin (Ecotrin) 81 mg PO DAILY [facility] Last Admin: 06/10/17 13:14 Dose: 81 mg Atorvastatin Calcium (Lipitor) 40 mg PO DAILY [facility] Last Admin: 06/10/17 13:11 Dose: 40 mg Calcium Acetate (Phoslo) 2,001 mg PO WM [facility] Last Admin: 06/10/17 18:43 Dose: Not Given Carvedilol (Coreg) 25 mg PO Q12 [facility] Last Admin: 06/10/17 21:24 Dose: 25 mg Clonidine HCl (Catapres) 0.1 mg PO DAILY [facility] Last Admin: 06/10/17 13:04 Dose: 0.1 mg Cyanocobalamin (Vitamin B12 1000 Mcg Tab) 1,000 mcg PO DAILY [facility] Last Admin: 06/10/17 13:09 Dose: 1,000 mcg Dextrose (Dextrose 50% Inj) 0 ml IV STAT PRN; Protocol PRN Reason: Hypoglycemia Protocol Dextrose (Glutose 15) 0 gm PO ONCE PRN; Protocol PRN Reason: Hypoglycemia Protocol Docusate Sodium (Colace) 100 mg PO BID [facility] Last Admin: 06/10/17 18:42 Dose: Not Given Epoetin Roel (Procrit) 10,000 unit SC TTS [facility] Last Admin: 06/10/17 16:45 Dose: 10,000 unit Ergocalciferol (Drisdol 50,000 Intl Units Cap) 1 cap PO Q7D [facility] Last Admin: 06/09/17 09:54 Dose: 1 cap Ferrous Sulfate (Feosol) 325 mg PO BID [facility] Last Admin: 06/10/17 18:42 Dose: Not Given Furosemide (Lasix) 20 mg PO QPM [facility] Last Admin: 06/10/17 18:44 Dose: Not Given Furosemide (Lasix) 40 mg PO DAILY [facility] Last Admin: 06/10/17 13:13 Dose: 40 mg Gabapentin (Neurontin) 100 mg PO BID [facility] Last Admin: 06/10/17 18:43 Dose: Not Given Glipizide (Glucotrol) 10 mg PO ACD [facility] Last Admin: 06/10/17 18:42 Dose: Not Given Glipizide (Glucotrol) 15 mg PO ACB [facility] Last Admin: 06/10/17 13:12 Dose: Not Given Glucagon (Glucagen Diagnostic Kit) 0 mg IM STAT PRN; Protocol PRN Reason: Hypoglycemia Protocol Guaifenesin/Dextromethorphan (Robitussin Dm) 10 ml PO Q6 PRN PRN Reason: Cough Last Admin: 06/03/17 23:56 Dose: 10 ml Heparin Sodium (Porcine) (Heparin) 5,000 units SC Q8 [facility] PRN Reason: Protocol Last Admin: 06/10/17 18:43 Dose: Not Given Lisinopril (Zestril) 20 mg PO DAILY [facility] Last Admin: 06/10/17 13:16 Dose: 20 mg Meclizine HCl (Antivert) 25 mg PO BID [facility] Last Admin: 06/10/17 18:42 Dose: Not Given Mirtazapine (Remeron) 30 mg PO HS [facility] Last Admin: 06/10/17 21:26 Dose: 30 mg Nifedipine (Procardia Xl) 60 mg PO Q12H [facility] Last Admin: 06/10/17 21:25 Dose: 60 mg Risperidone (Risperdal Tab) 3 mg PO HS [facility] Last Admin: 06/10/17 21:27 Dose: 3 mg Sennosides (Senokot Tab) 8.6 mg PO HS [facility] Last Admin: 06/10/17 21:27 Dose: 8.6 mg - Labs Labs: 06/10/17 05:35 06/10/17 05:35 PT 10.4 Seconds (9.8-13.1) 05/30/17 17:30 INR 0.9 (0.9-1.2) 05/30/17 17:30 APTT 35.2 Seconds (25.6-37.1) 05/30/17 17:30 - Constitutional Appears: No Acute Distress - Head Exam Head Exam: NORMAL INSPECTION - Eye Exam Eye Exam: Normal appearance. absent: Scleral icterus - ENT Exam ENT Exam: Mucous Membranes Moist - Respiratory Exam Respiratory Exam: absent: Respiratory Distress Additional comments: markedly decreased breath sounds on L; - Cardiovascular Exam Cardiovascular Exam: RRR, +S1, +S2 - GI/Abdominal Exam GI & Abdominal Exam: Soft. absent: Distended, Tenderness - Extremities Exam Additional comments: moderate lower leg edema extending to thighs; - Neurological Exam Neurological Exam: Alert, Awake - Psychiatric Exam Psychiatric exam: absent: Agitated - Skin Skin Exam: Warm. absent: Cyanosis Assessment and Plan (1) Acute kidney injury superimposed on chronic kidney disease Assessment & Plan: Hemodynamic fluctuations in GFR due to diuresis and KEVIN blockade; decreasing lisinopril to 20 mg daily for now; continue PO lasix 40 mg in am and 20 mg in pm ; Status: Acute (2) Nephrotic syndrome Assessment & Plan: CKD IIIB w/ nephrotic syndrome; s/p renal biopsy last week that showed primarily underlying DM nephropathy; mainstay of therapy is KEVIN blockade, BP and glycemic control; discussed with patient at length with chute greaser regarding need for close outpatient f/u and need for dialysis in the coming 1-2 years; acquiring meds will remain a challenge for him and so prognosis is very guarded; Should continue lisinopril despite mild hyperkalemia; will have to be on standing kayexalate every other day; Status: Acute (3) Hypertensive CKD (chronic kidney disease) Assessment & Plan: BP overall much better controlled with nifedipine XL 60 mg bid; seeking to taper off clonidine to simplify regimen (if BP permits); Status: Acute (4) Anemia of renal disease Assessment & Plan: Started on EPO 10,000 u, will plan to give three times per week while admitted; Status: Acute (5) Chronic kidney disease-mineral and bone disorder Assessment & Plan: On ergocalciferol 50,000 u; corrected Ca at goal; has secondary hyperparathryoidism; should repeat PTH level monthly as outpatient; need also to avoid oversuppression of PTH; Status: Acute (6) CHF (congestive heart failure) Status: Acute
[2017-06-11 06:38] LABS: HEMATOCRIT 26.7 % (35.0-51.0); MEAN CELL VOLUME 92.8 fl (80.0-94.0); MEAN CORPUSCULAR HEMOGLOBIN 31.4 pg (27.0-31.0); MEAN CORPUSCULAR HGB CONC 33.9 g/dL (33.0-37.0); RED CELL DISTRIBUTION WIDTH 15.1 % (11.5-14.5); WHITE BLOOD COUNT 6.1 K/uL (4.8-10.8)
[2017-06-11 06:51] LABS: ALB/GLOB RATIO 0.9 (1.0-2.1); BILIRUBIN,TOTAL 0.1 mg/dl (0.2-1.3); CALCIUM 7.8 mg/dL (8.4-10.2); POTASSIUM 5.4 MMOL/L (3.6-5.0); TOTAL PROTEIN 5.8 G/DL (6.3-8.2)
--- NOTE | 2017-06-11 08:09 | CP.PCM.PN ---
Subjective - Date & Time of Evaluation Date of Evaluation: 06/11/17 Time of Evaluation: 08:05 - Subjective Subjective: Mr. Durand was seen and examined at the bedside. He is alert, oriented in all spheres. He denies any headache, dizziness, lightheadedness, nausea, or vomiting. He states of experiencing mild blurry vision. According to the staff, he is non-compliant to most of his medical regimen. Spoke to the patient regarding the importance of his treatment, but he states that he will see. There was no untoward events overnight. Objective - Vital Signs/Intake and Output Vital Signs (last 24 hours): Temp Pulse Resp BP Pulse Ox 97.5 F L 65 20 111/68 90 L 06/11/17 07:42 06/11/17 07:42 06/11/17 07:42 06/11/17 07:42 06/11/17 07:42 - Medications Medications: Current Medications Acetaminophen (Tylenol 325mg Tab) 650 mg PO Q6 [facility] Last Admin: 06/11/17 04:07 Dose: Not Given Al Hydrox/Mg Hydrox/Simethicone (Maalox Plus 30 Ml) 30 ml PO Q4 PRN PRN Reason: Indigestion / Heartburn Albuterol/Ipratropium (Duoneb 3 Mg/0.5 Mg (3 Ml) Ud) 3 ml INH RQ6 PRN PRN Reason: Shortness of Breath Last Admin: 06/03/17 23:55 Dose: 3 ml Artificial Tears (Artificial Tears) 2 drop OU Q4 PRN PRN Reason: Dry eyes Last Admin: 06/02/17 15:09 Dose: 2 drop Aspirin (Ecotrin) 81 mg PO DAILY [facility] Last Admin: 06/10/17 13:14 Dose: 81 mg Atorvastatin Calcium (Lipitor) 40 mg PO DAILY [facility] Last Admin: 06/10/17 13:11 Dose: 40 mg Calcium Acetate (Phoslo) 2,001 mg PO WM [facility] Last Admin: 06/10/17 18:43 Dose: Not Given Carvedilol (Coreg) 25 mg PO Q12 [facility] Last Admin: 06/10/17 21:24 Dose: 25 mg Clonidine HCl (Catapres) 0.1 mg PO DAILY [facility] Last Admin: 06/10/17 13:04 Dose: 0.1 mg Cyanocobalamin (Vitamin B12 1000 Mcg Tab) 1,000 mcg PO DAILY [facility] Last Admin: 06/10/17 13:09 Dose: 1,000 mcg Dextrose (Dextrose 50% Inj) 0 ml IV STAT PRN; Protocol PRN Reason: Hypoglycemia Protocol Dextrose (Glutose 15) 0 gm PO ONCE PRN; Protocol PRN Reason: Hypoglycemia Protocol Docusate Sodium (Colace) 100 mg PO BID [facility] Last Admin: 06/10/17 18:42 Dose: Not Given Epoetin Roel (Procrit) 10,000 unit SC TTS [facility] Last Admin: 06/10/17 16:45 Dose: 10,000 unit Ergocalciferol (Drisdol 50,000 Intl Units Cap) 1 cap PO Q7D [facility] Last Admin: 06/09/17 09:54 Dose: 1 cap Ferrous Sulfate (Feosol) 325 mg PO BID [facility] Last Admin: 06/10/17 18:42 Dose: Not Given Furosemide (Lasix) 20 mg PO QPM [facility] Last Admin: 06/10/17 18:44 Dose: Not Given Furosemide (Lasix) 40 mg PO DAILY [facility] Last Admin: 06/10/17 13:13 Dose: 40 mg Gabapentin (Neurontin) 100 mg PO BID [facility] Last Admin: 06/10/17 18:43 Dose: Not Given Glipizide (Glucotrol) 10 mg PO ACD [facility] Last Admin: 06/10/17 18:42 Dose: Not Given Glipizide (Glucotrol) 15 mg PO ACB [facility] Last Admin: 06/10/17 13:12 Dose: Not Given Glucagon (Glucagen Diagnostic Kit) 0 mg IM STAT PRN; Protocol PRN Reason: Hypoglycemia Protocol Guaifenesin/Dextromethorphan (Robitussin Dm) 10 ml PO Q6 PRN PRN Reason: Cough Last Admin: 06/03/17 23:56 Dose: 10 ml Heparin Sodium (Porcine) (Heparin) 5,000 units SC Q8 [facility] PRN Reason: Protocol Last Admin: 06/11/17 00:30 Dose: Not Given Lisinopril (Zestril) 20 mg PO DAILY [facility] Last Admin: 06/10/17 13:16 Dose: 20 mg Meclizine HCl (Antivert) 25 mg PO BID [facility] Last Admin: 06/10/17 18:42 Dose: Not Given Mirtazapine (Remeron) 30 mg PO HS [facility] Last Admin: 06/10/17 21:26 Dose: 30 mg Nifedipine (Procardia Xl) 60 mg PO Q12H [facility] Last Admin: 06/10/17 21:25 Dose: 60 mg Risperidone (Risperdal Tab) 3 mg PO HS [facility] Last Admin: 06/10/17 21:27 Dose: 3 mg Sennosides (Senokot Tab) 8.6 mg PO HS [facility] Last Admin: 06/10/17 21:27 Dose: 8.6 mg - Labs Labs: 06/11/17 04:00 06/11/17 05:45 PT 10.4 Seconds (9.8-13.1) 05/30/17 17:30 INR 0.9 (0.9-1.2) 05/30/17 17:30 APTT 35.2 Seconds (25.6-37.1) 05/30/17 17:30 - Constitutional Appears: No Acute Distress - Head Exam Head Exam: ATRAUMATIC - Neurological Exam Neurological Exam: Alert, Awake, Normal Gait Neuro motor strength exam: Left Upper Extremity: 5, Right Upper Extremity: 5, Left Lower Extremity: 5, Right Lower Extremity: 5 Additional comments: Neurological unchanged from previous examination. Assessment and Plan (1) Blurry vision, bilateral Assessment & Plan: Case discussed with Dr. Das, continue all current medical, physical, and occupational therapies. Pending MRI of the brain, MRA of the head and neck result. Status: Acute
--- NOTE | 2017-06-11 08:24 | CP.PCM.DIS ---
Provider - Provider Date of Admission: 05/30/17 18:19 Attending physician: Elizabeth Kelley MD Hospital Course - Lab Results Lab Results: Micro Results 06/04/17 06:31 Urine Urine Culture - Final No Growth (<1,000 CFU/ML) 05/30/17 17:20 Blood Blood Culture - Final NO GROWTH AFTER 5 DAYS 05/30/17 17:20 Blood Gram Stain - Final TEST NOT PERFORMED 05/30/17 17:30 Blood Blood Culture - Final NO GROWTH AFTER 5 DAYS 05/30/17 17:30 Blood Gram Stain - Final TEST NOT PERFORMED 05/30/17 19:35 Urine Urine Culture - Final Staphylococcus Epidermidis Most Recent Lab Values WBC 6.1 K/uL (4.8-10.8) 06/11/17 04:00 RBC 2.87 Mil/uL (4.40-5.90) L 06/11/17 04:00 Hgb 9.0 g/dL (12.0-18.0) L 06/11/17 04:00 Hct 26.7 % (35.0-51.0) L 06/11/17 04:00 MCV 92.8 fl (80.0-94.0) 06/11/17 04:00 MCH 31.4 pg (27.0-31.0) H 06/11/17 04:00 MCHC 33.9 g/dL (33.0-37.0) 06/11/17 04:00 RDW 15.1 % (11.5-14.5) H 06/11/17 04:00 Plt Count 243 K/uL (130-400) 06/11/17 04:00 MPV 10.5 fl (7.2-11.7) 06/10/17 05:35 Neut % (Auto) 66.6 % (50.0-75.0) 06/10/17 05:35 Lymph % (Auto) 22.1 % (20.0-40.0) 06/10/17 05:35 [place] % (Auto) 7.4 % (0.0-10.0) 06/10/17 05:35 Eos % (Auto) 2.3 % (0.0-4.0) 06/10/17 05:35 Baso % (Auto) 1.6 % (0.0-2.0) 06/10/17 05:35 Neut # 4.4 K/uL (1.8-7.0) 06/10/17 05:35 Lymph # 1.5 K/uL (1.0-4.3) 06/10/17 05:35 [place] # 0.5 K/uL (0.0-0.8) 06/10/17 05:35 Eos # 0.2 K/uL (0.0-0.7) 06/10/17 05:35 Baso # 0.1 K/uL (0.0-0.2) 06/10/17 05:35 PT 10.4 Seconds (9.8-13.1) 05/30/17 17:30 INR 0.9 (0.9-1.2) 05/30/17 17:30 APTT 35.2 Seconds (25.6-37.1) 05/30/17 17:30 pO2 26 mm/Hg (30-55) L 05/30/17 17:40 VBG pH 7.27 (7.32-7.43) L 05/30/17 17:40 VBG pCO2 45 mmHg (40-60) 05/30/17 17:40 VBG HCO3 18.5 mmol/L 05/30/17 17:40 VBG Total CO2 22.1 mmol/L (22-28) 05/30/17 17:40 VBG O2 Sat (Calc) 62.2 % (40-65) 05/30/17 17:40 VBG Base Excess -6.2 mmol/L (0.0-2.0) L 05/30/17 17:40 VBG Potassium 4.1 mmol/L (3.6-5.2) 05/30/17 17:40 Sodium 155.0 mmol/L (132-148) H 05/30/17 17:40 Chloride 110.0 mmol/L (98-107) H 05/30/17 17:40 Glucose 129 mg/dL (75-110) H 05/30/17 17:40 Lactate 0.5 mmol/L (0.7-2.1) L 05/30/17 17:40 FiO2 21.0 % 05/30/17 17:40 Sodium 141 mmol/l (132-148) 06/11/17 05:45 Potassium 5.4 MMOL/L (3.6-5.0) H 06/11/17 05:45 Chloride 113 mmol/L (98-107) H 06/11/17 05:45 Carbon Dioxide 23 mmol/L (22-30) 06/11/17 05:45 Anion Gap 10 (10-20) 06/11/17 05:45 BUN 79 mg/dl (9-20) H 06/11/17 05:45 Creatinine 2.4 mg/dl (0.8-1.5) H 06/11/17 05:45 Est GFR ( Amer) 33 06/11/17 05:45 Est GFR (Non-Af Amer) 27 06/11/17 05:45 POC Glucose (mg/dL) 116 mg/dL (65-110) H 06/11/17 05:30 Random Glucose 134 mg/dL (75-110) H 06/11/17 05:45 Calcium 7.8 mg/dL (8.4-10.2) L 06/11/17 05:45 Phosphorus 6.2 mg/dl (2.5-4.5) H 06/10/17 05:35 Magnesium 2.0 MG/DL (1.6-2.3) 06/10/17 05:35 Iron 51 ug/dL (49-181) 06/01/17 05:30 TIBC 200 ug/dL (250-450) L 06/01/17 05:30 % Saturation 26 % (20-55) 06/01/17 05:30 Ferritin 117.0 ng/Ml (17.9-464) 06/01/17 05:30 Total Bilirubin 0.1 mg/dl (0.2-1.3) L 06/11/17 05:45 AST 38 U/L (17-59) 06/11/17 05:45 ALT 91 U/L (21-72) H 06/11/17 05:45 Alkaline Phosphatase 209 U/L (38-126) H 06/11/17 05:45 Troponin I 0.0180 ng/mL (0.00-0.120) 05/30/17 17:30 NT-Pro-B Natriuret Pep 4750 pg/ml (0-900) H 05/30/17 17:30 Total Protein 5.8 G/DL (6.3-8.2) L 06/11/17 05:45 Albumin 2.8 g/dL (3.5-5.0) L 06/11/17 05:45 Globulin 3.0 gm/dL (2.2-3.9) 06/11/17 05:45 Albumin/Globulin Ratio 0.9 (1.0-2.1) L 06/11/17 05:45 Triglycerides 76 mg/DL (0-149) D 06/03/17 10:10 Cholesterol 120 mg/dL (0-199) 06/03/17 10:10 LDL Cholesterol Direct 49 mg/dL (0-129) 06/03/17 10:10 HDL Cholesterol 44 MG/DL (30-70) 06/03/17 10:10 Vitamin B12 305 pg/mL (239-931) 06/03/17 10:10 25-OH Vitamin D Total < 12.8 NG/ML (30.0-100.0) L 06/01/17 05:30 Folate 12.3 ng/mL 06/03/17 10:10 Procalcitonin 0.13 NG/ML (0.19-0.49) L 05/31/17 05:20 TSH 3rd Generation 3.97 mIU/ML (0.46-4.68) 06/06/17 16:08 Calcium (PTH Intact) 7.7 mg/dL (8.6-10.3) L 06/01/17 05:30 PTH w/Ion &Tot Calcium 84 pg/mL (14-64) H 06/01/17 05:30 Venous Blood Potassium 4.1 mmol/L (3.6-5.2) 05/30/17 17:40 Urine Color Straw (YELLOW) 06/04/17 23:35 Urine Clarity Clear (Clear) 06/04/17 23:35 Urine pH 6.0 (5.0-8.0) 06/04/17 23:35 Ur Specific [place] 1.010 (1.003-1.030) 06/04/17 23:35 Urine Protein 100 mg/dL (NEGATIVE) 06/04/17 23:35 Urine Glucose (UA) 150 mg/dL (Normal) 06/04/17 23:35 Urine Ketones Negative mg/dL (NEGATIVE) 06/04/17 23:35 Urine Blood Negative (NEGATIVE) 06/04/17 23:35 Urine Nitrate Negative (NEGATIVE) 06/04/17 23:35 Urine Bilirubin Negative (NEGATIVE) 06/04/17 23:35 Urine Urobilinogen 0.2-1.0 mg/dL (0.2-1.0) 12 23:35 Ur Leukocyte Esterase Neg Justino/uL (Negative) 06/04/17 23:35 Urine RBC (Auto) 4 /hpf (0-3) H 06/04/17 23:35 Urine Microscopic WBC 1 /hpf (0-5) 06/04/17 23:35 Ur Squamous Epith Cells < 1 /hpf (0-5) 06/04/17 23:35 Urine Bacteria Rare (<OCC) 06/04/17 23:35 Hyaline Casts 3-5 /hpf (0-2) H 05/30/17 19:35 Stool Occult Blood Negative (NEGATIVE) 06/03/17 08:18 Alcohol, Quantitative < 10 mg/dl (0-10) 05/30/17 17:30 RPR Nonreactive (NONREACTIVE) 06/05/17 09:03 Influenza Typ A,B (EIA) Negative for flu a/b (NEGATIVE) 05/30/17 17:30 Blood Type A NEGATIVE 06/06/17 16:08 Antibody Screen Negative 06/06/17 16:08 Crossmatch See Detail 06/06/17 16:08 BBK History Checked Patient has bt 06/06/17 16:08 - Hospital Course Hospital Course: Admission Date: Discharge Diagnosis: Hospital Course: 66 year old male with hx of CKD, chronic pleural effusion, chronic anemia, NIDDM2, HTN admitted to [facility] for weakness and gait instability and found to have BL LE edema secondary to Nephrotic Syndrome. A kidney biopsy was completed. Patient was seen by [employer], Dr. Cassidy, and his blood pressure medications were optimized. During his hospital course, he became anemic and was transfused 1 unit of blood. Patient also received multiple days of physical therapy for weakness and unsteady gait and was discharged on a rolling walker. Of note, pt had multiple episodes of being non compliant with treatment throughout his stay. Patient was safely discharged to [facility]. Discharge Medications: Aspirin (Ecotrin) 81 mg PO DAILY [facility] Atorvastatin Calcium (Lipitor) 40 mg PO DAILY [facility] Clopidogrel 75mg PO Daily 30 days (RX given) Calcium Acetate (Phoslo) 2,001 mg PO WM [facility] Carvedilol (Coreg) 25 mg PO Q12 [facility] (RX given) (RX given) Clonidine HCl (Catapres) 0.1 mg PO DAILY [facility] (RX given) Cyanocobalamin (Vitamin B12 1000 Mcg Tab) 1,000 mcg PO DAILY [facility] (RX given) Epoetin Roel (Procrit) 10,000 unit SC TTS [facility] (RX given) (RX given) Ergocalciferol (Drisdol 50,000 Intl Units Cap) 1 cap PO Q7D [facility] (RX given) Ferrous Sulfate (Feosol) 325 mg PO BID [facility] (RX given) (RX given) Furosemide (Lasix) 20 mg PO QPM [facility] Furosemide (Lasix) 40 mg PO DAILY [facility] Gabapentin (Neurontin) 100 mg PO BID [facility] Glipizide (Glucotrol) 10 mg PO ACD [facility] Glipizide (Glucotrol) 15 mg PO ACB [facility] Mirtazapine (Remeron) 30 mg PO HS [facility] Nifedipine (Procardia Xl) 60 mg PO Q12H [facility] Risperidone (Risperdal Tab) 3 mg PO HS [facility] Condition upon Discharge: Fair Activity: Ambulating with Rolling walker Discharge Instructions: Continue taking medications. Follow up with PMD at [facility]. Discharge Exam - Head Exam Head Exam: ATRAUMATIC Discharge Plan - Discharge Medications Prescriptions: Carvedilol [Coreg] 25 mg PO Q12 30 Days #60 tab cloNIDine [Catapres] 0.1 mg PO BID 30 Days #60 tab Clopidogrel [Plavix] 75 mg PO DAILY 30 Days #30 tab Cyanocobalamin [Vitamin B12 1000 mcg Tab] 1,000 mcg PO DAILY 30 Days #30 tab Epoetin Roel [Procrit] 10,000 unit SC TTS 20 Days #30 ml Ergocalciferol [Drisdol 50,000 Intl Units Cap] 1 cap PO Q7D 30 Days #4 cap Ferrous Sulfate [Feosol] 325 mg PO BID 30 Days #60 tab Furosemide [Lasix] 20 mg PO QPM 30 Days #30 tab Furosemide [Lasix] 40 mg PO DAILY 30 Days #30 tab NIFEdipine ER [Procardia XL] 60 mg PO Q12H 30 Days #30 ter - Follow Up Plan Condition: GUARDED Disposition: HOME/ ROUTINE Instructions: Heart Failure (DC), Percutaneous Kidney Biopsy (DC) Additional Instructions: follow up at [facility] Jun 16 @ 2:20pm with Dr. Nova at [facility]. Referrals: [facility] [place] [Outside]
[2017-06-11] MEDS: Sod Polystyrene Sulf 15 gm/60 ml Susp PO ONE ×3 (08:38→14:12)
--- NOTE | 2017-06-11 10:07 | MRI ---
PROCEDURE: MRI BRAIN WITHOUT CONTRAST HISTORY: blurred vision COMPARISON: Unenhanced head CT 06/03/2017. TECHNIQUE: Multiplanar, multisequence MR images of the brain were obtained without intravenous contrast enhancement. FINDINGS: HEMORRHAGE: None DWI: No evidence of an acute or early subacute infarction. BRAIN PARENCHYMA: Age related neuro degenerative changes appear reiterated the current examination including diffuse cerebral atrophy and chronic microangiopathy. Microangiopathy extends into the dali. There is no mass effect. There is no suspicious extra-axial collection exclusive of white matter changes, midline brain anatomy remains unremarkable. VENTRICLES: Unremarkable. No hydrocephalus. CRANIUM: Limited right mastoid effusions are identified with minimal left mastoid effusions present. ORBITS: Grossly unremarkable. PARANASAL SINUSES/MASTOIDS: Clear VASCULAR SYSTEM: Skull base flow voids intact. OTHER FINDINGS: None. IMPRESSION: No definite acute intracranial findings. Age-related neuro degenerative findings are reiterated.
--- NOTE | 2017-06-11 10:35 | MRI ---
PROCEDURE: Magnetic Resonance Angiography Brain HISTORY: blurred vision COMPARISON: None available. TECHNIQUE: 3D time of flight MR angiography of the intracranial arteries was performed. Rotating maximum intensity projection images were generated. FINDINGS: INTERNAL CAROTID ARTERIES: Atherosclerotic changes within cavernous internal carotid arteries are identified bilaterally resulting in at least moderate bilateral ICA stenoses. They appear to remain patent through their bifurcations nevertheless. The visualized distal cervical ICAs are widely patent as imaged. ANTERIOR CEREBRAL ARTERIES: High-grade proximal right A1 YARY stenosis is not excluded just distal to its origin with the left A1 YARY segment widely patent. Artifacts obscure the distal bilateral A2 YARY segments with a high-grade distal left tertiary YARY branch stenosis not excluded. MIDDLE CEREBRAL ARTERIES: Proximal left M1 MCA high-grade stenosis is questioned as well as entered tertiary branch laterally. Diminished flow suggested in perisylvian left MCA branches when compared to the right. POSTERIOR CIRCULATION: Basilar Artery: Unremarkable. Distal Vertebral Arteries: Unremarkable. Posterior Cerebral Arteries: Unremarkable. Posterior Inferior Cerebellar Arteries: Unremarkable. ANEURYSM/ VASCULAR MALFORMATIONS: None. OTHER FINDINGS: None. IMPRESSION: Artifacts limit this exam somewhat however, diminished flow suggested perisylvian low distal left MCA branches when compared to the right with high-grade stenoses suggests at the proximal left M1 MCA branch as well as a least 1 tertiary branch. A high-grade proximal right A1 YARY stenosis also identified near its origin as well as the distal left tertiary YARY branch. Moderate bilateral cavernous ICA atherosclerosis and resulting stenosis without severe stenosis evident or occlusion. The bilateral ICAs appear patent through their bifurcations nonetheless.
--- NOTE | 2017-06-11 10:47 | MRI ---
PROCEDURE: MR Angiography of the neck without contrast HISTORY: blurred vision COMPARISON: None available. TECHNIQUE: 3D [id number] angiography of the neck was performed. Rotating maximum intensity projection images of the cervical carotid and vertebral arteries were generated. The origins of the common carotid arteries were not visualized, which is a limitation inherent to the non-contrast time of flight technique. FINDINGS: RIGHT CAROTID ARTERIES: Common Carotid Artery: Normal. Carotid Bifurcation: Normal. Internal Carotid Artery:Normal. External Carotid Artery (proximal branches): Normal. LEFT CAROTID ARTERIES: Common Carotid Artery: Normal. Carotid Bifurcation: Normal. Internal Carotid Artery:Normal. External Carotid Artery (proximal branches): Normal. VERTEBRAL ARTERIES: Right Vertebral Artery: Normal. Left Vertebral Artery: Limited distal left vertebral artery stenosis a few cm proximal to junction with the basilar artery. OTHER FINDINGS: None. IMPRESSION: No significant visualized bilateral common or internal carotid artery stenosis as discussed above. Limited distal left vertebral artery stenosis.
[2017-06-11] MEDS: NIFEdipine 60 mg ER Tab PO SCH ×2 (13:45→21:27)
--- NOTE | 2017-06-11 13:53 | CP.PCM.PN ---
Subjective - Date & Time of Evaluation Date of Evaluation: 06/11/17 Time of Evaluation: 08:00 - Subjective Subjective: No acute overnight events. Brain MRI completed yesterday. This morning patient has no physical complaints. Pt denies CP, SOB, palpatations, regular BM. Objective - Vital Signs/Intake and Output Vital Signs (last 24 hours): Temp Pulse Resp BP Pulse Ox 97.5 F L 75 20 159/69 H 90 L 06/11/17 07:42 06/11/17 13:44 06/11/17 07:42 06/11/17 13:44 06/11/17 07:42 - Medications Medications: Current Medications Acetaminophen (Tylenol 325mg Tab) 650 mg PO Q6 [facility] Last Admin: 06/11/17 13:45 Dose: Not Given Al Hydrox/Mg Hydrox/Simethicone (Maalox Plus 30 Ml) 30 ml PO Q4 PRN PRN Reason: Indigestion / Heartburn Albuterol/Ipratropium (Duoneb 3 Mg/0.5 Mg (3 Ml) Ud) 3 ml INH RQ6 PRN PRN Reason: Shortness of Breath Last Admin: 06/03/17 23:55 Dose: 3 ml Artificial Tears (Artificial Tears) 2 drop OU Q4 PRN PRN Reason: Dry eyes Last Admin: 06/02/17 15:09 Dose: 2 drop Aspirin (Ecotrin) 81 mg PO DAILY [facility] Last Admin: 06/11/17 08:24 Dose: 81 mg Atorvastatin Calcium (Lipitor) 40 mg PO DAILY [facility] Last Admin: 06/11/17 08:33 Dose: 40 mg Calcium Acetate (Phoslo) 2,001 mg PO WM [facility] Last Admin: 06/11/17 13:45 Dose: Not Given Carvedilol (Coreg) 25 mg PO Q12 [facility] Last Admin: 06/11/17 13:15 Dose: 25 mg Clonidine HCl (Catapres) 0.1 mg PO DAILY [facility] Last Admin: 06/11/17 13:44 Dose: Not Given Cyanocobalamin (Vitamin B12 1000 Mcg Tab) 1,000 mcg PO DAILY [facility] Last Admin: 06/11/17 08:27 Dose: 1,000 mcg Dextrose (Dextrose 50% Inj) 0 ml IV STAT PRN; Protocol PRN Reason: Hypoglycemia Protocol Dextrose (Glutose 15) 0 gm PO ONCE PRN; Protocol PRN Reason: Hypoglycemia Protocol Docusate Sodium (Colace) 100 mg PO BID [facility] Last Admin: 06/11/17 08:25 Dose: 100 mg Epoetin Roel (Procrit) 10,000 unit SC TTS [facility] Last Admin: 06/10/17 16:45 Dose: 10,000 unit Ergocalciferol (Drisdol 50,000 Intl Units Cap) 1 cap PO Q7D [facility] Last Admin: 06/09/17 09:54 Dose: 1 cap Ferrous Sulfate (Feosol) 325 mg PO BID [facility] Last Admin: 06/11/17 08:23 Dose: 325 mg Furosemide (Lasix) 20 mg PO QPM [facility] Last Admin: 06/10/17 18:44 Dose: Not Given Furosemide (Lasix) 40 mg PO DAILY [facility] Last Admin: 06/11/17 08:33 Dose: 40 mg Gabapentin (Neurontin) 100 mg PO BID [facility] Last Admin: 06/11/17 08:23 Dose: 100 mg Glipizide (Glucotrol) 10 mg PO ACD [facility] Last Admin: 06/10/17 18:42 Dose: Not Given Glipizide (Glucotrol) 15 mg PO ACB [facility] Last Admin: 06/11/17 08:24 Dose: 15 mg Glucagon (Glucagen Diagnostic Kit) 0 mg IM STAT PRN; Protocol PRN Reason: Hypoglycemia Protocol Guaifenesin/Dextromethorphan (Robitussin Dm) 10 ml PO Q6 PRN PRN Reason: Cough Last Admin: 06/03/17 23:56 Dose: 10 ml Heparin Sodium (Porcine) (Heparin) 5,000 units SC Q8 [facility] PRN Reason: Protocol Last Admin: 06/11/17 13:44 Dose: Not Given Lisinopril (Zestril) 20 mg PO DAILY [facility] Last Admin: 06/11/17 08:33 Dose: 20 mg Meclizine HCl (Antivert) 25 mg PO BID [facility] Last Admin: 06/11/17 13:44 Dose: Not Given Mirtazapine (Remeron) 30 mg PO HS [facility] Last Admin: 06/10/17 21:26 Dose: 30 mg Nifedipine (Procardia Xl) 60 mg PO Q12H [facility] Last Admin: 06/11/17 13:45 Dose: Not Given Risperidone (Risperdal Tab) 3 mg PO HS [facility] Last Admin: 06/10/17 21:27 Dose: 3 mg Sennosides (Senokot Tab) 8.6 mg PO HS [facility] Last Admin: 06/10/17 21:27 Dose: 8.6 mg - Labs Labs: 06/11/17 04:00 06/11/17 05:45 PT 10.4 Seconds (9.8-13.1) 05/30/17 17:30 INR 0.9 (0.9-1.2) 05/30/17 17:30 APTT 35.2 Seconds (25.6-37.1) 05/30/17 17:30 - Constitutional Appears: Well, Non-toxic, No Acute Distress - ENT Exam ENT Exam: Mucous Membranes Moist - Respiratory Exam Respiratory Exam: Rales (Left lower lung base, stable from yesterday), Rhonchi, Wheezes. absent: Accessory Muscle Use, Respiratory Distress - Cardiovascular Exam Cardiovascular Exam: REGULAR RHYTHM, +S1, +S2. absent: Murmur - GI/Abdominal Exam GI & Abdominal Exam: Soft. absent: Distended, Tenderness - Extremities Exam Extremities Exam: Pedal Edema Additional comments: + 1 pitting edema up to mid leg - Neurological Exam Neurological Exam: Alert, Awake, Oriented x3 - Psychiatric Exam Psychiatric exam: Flat Affect Assessment and Plan - Assessment and Plan (Free Text) Assessment: 66 year old male with hx of CKD, chronic pleural effusion, chronic anemia, NIDDM2, HTN currently pending D/C upon stabilization of pt's deconditioned state. Pt is a poor historian. Plan: #Deconditioned 2/2 to Chronic Disease -Pt's weakness improving. -Pt noted to have weakness and gait instability. -Spoke with PT: Pt taught how to use rolling walker, pt is agreeable to use assisted device. TCU was recommended. PLAN: At this time, pt is not a safe discharge, will try to optimize patient for discharge in the am. #Blurry Vision, new onset -Pt told physical therapy he has a history of cataracts but denied this to the MD. Poor historian. Often tell different providers contradicting things with regards to his blurry vision. Evaluated by physical therapy and occupational therapy, no visual deficits noted. Patient advised to follow up with an farm or ranch animal caretaker outpatient. -Brain MRI, Head and Neck MRA- no acute findings -Head CT- no acute changes -B12, Folate, RPR- wnl #Hyperkalemia -5.4 today. Asymptomatic. Patient has been refusing kayexalate. -Likely secondary to lisinopril in the setting of nephropathy. Field Map Technician aware, holding Lisinopril. Recommending pt to take kayexelate outpatient QOD if Lisinopril continued. -Will give Lasix IV now as it will also reduce patients volume overload state. -F/U AM BMP # Nephrotic Syndrome secondary to Diabetic Nephropathy -UA +protein>500, +glucose>500 -Nephro on board (Dr. Luz) -Kidney biopsy report: Diabetic Nephropathy, Management includes RAAS blockade and Glycemic control. Poor kidney prognosis. -PTH elevated, Vit D low # Anemia, Acute on Chronic, resolved -9.0 today s/p 1U PRBC. -Likely combination of anemia of chronic disease (indolent MM) and iron deficiency anemia -Iron studies reviewed -vitamin B12 and folate WNL -C/w ferrous sulfate PO BID -Procrit restarted by nephrology # Bilateral leg edema likely due to CHF -Better today. Pt refusing lasix in the pm. Spoke to patient about the importance of taking his medication. Patient verbalized understanding and is agreeable to take it today. Will monitor after Lasix administration. Will give 20mg IV Lasix now. -Improving Echo reviewed, unremarkable -B[place] 4k, [place] [id number] in 03/2017 -Lasix 20 daily,40mg QPM (pt has been refusing lasix for past 2 days) -BL duplex doppler negative for DVT -Cardio consulted-appreciate recommendations # HTN (hypertension), uncontrolled -Normotensive -Coreg 25mg q12 PO -Lisinopril D/C'd -Nifedipine 60mg BID -Clonidine 0.10 po mg daily, will need to be tapered off as per nephrology. -ASA 81mg -Will continue to monitor # Pleural effusion, stable -Had thoracocentesis in the past -appears stable on imaging #Chronic kidney disease, stage III (moderate) -GFR 36, CrCl 37 -Phoslo given for hyperphosphatemia #Diabetes mellitus type 2 in nonobese -stable -c/w home meds #DVT prophylaxis -Heparin 5000 SC q8H . Pt has been refusing heparin. scds # Diet -Renal Diet
--- NOTE | 2017-06-11 18:42 | CP.PCM.PN ---
Subjective - Date & Time of Evaluation Date of Evaluation: 06/11/17 Time of Evaluation: 18:40 - Subjective Subjective: 66 yo M w/ pmh of htn, dm, CKD IIIB w/ nephrotic syndrome, recurrent L pleural effusion, admitted with CHF exacerbation; Patient reportedly refusing meds; reports feeling ill; complaining of his leg edema; Objective - Vital Signs/Intake and Output Vital Signs (last 24 hours): Temp Pulse Resp BP Pulse Ox 97.3 F L 69 20 165/72 H 91 L 06/11/17 17:00 06/11/17 16:54 06/11/17 17:00 06/11/17 17:00 06/11/17 17:00 - Medications Medications: Current Medications Acetaminophen (Tylenol 325mg Tab) 650 mg PO Q6 [facility] Last Admin: 06/11/17 13:45 Dose: Not Given Al Hydrox/Mg Hydrox/Simethicone (Maalox Plus 30 Ml) 30 ml PO Q4 PRN PRN Reason: Indigestion / Heartburn Albuterol/Ipratropium (Duoneb 3 Mg/0.5 Mg (3 Ml) Ud) 3 ml INH RQ6 PRN PRN Reason: Shortness of Breath Last Admin: 06/03/17 23:55 Dose: 3 ml Artificial Tears (Artificial Tears) 2 drop OU Q4 PRN PRN Reason: Dry eyes Last Admin: 06/02/17 15:09 Dose: 2 drop Aspirin (Ecotrin) 81 mg PO DAILY [facility] Last Admin: 06/11/17 08:24 Dose: 81 mg Atorvastatin Calcium (Lipitor) 40 mg PO DAILY [facility] Last Admin: 06/11/17 08:33 Dose: 40 mg Calcium Acetate (Phoslo) 2,001 mg PO WM [facility] Last Admin: 06/11/17 13:45 Dose: Not Given Carvedilol (Coreg) 25 mg PO Q12 [facility] Last Admin: 06/11/17 13:15 Dose: 25 mg Clonidine HCl (Catapres) 0.1 mg PO BID [facility] Cyanocobalamin (Vitamin B12 1000 Mcg Tab) 1,000 mcg PO DAILY [facility] Last Admin: 06/11/17 08:27 Dose: 1,000 mcg Dextrose (Dextrose 50% Inj) 0 ml IV STAT PRN; Protocol PRN Reason: Hypoglycemia Protocol Dextrose (Glutose 15) 0 gm PO ONCE PRN; Protocol PRN Reason: Hypoglycemia Protocol Docusate Sodium (Colace) 100 mg PO BID [facility] Last Admin: 06/11/17 08:25 Dose: 100 mg Epoetin Roel (Procrit) 10,000 unit SC TTS [facility] Last Admin: 06/10/17 16:45 Dose: 10,000 unit Ergocalciferol (Drisdol 50,000 Intl Units Cap) 1 cap PO Q7D [facility] Last Admin: 06/09/17 09:54 Dose: 1 cap Ferrous Sulfate (Feosol) 325 mg PO BID [facility] Last Admin: 06/11/17 08:23 Dose: 325 mg Furosemide (Lasix) 20 mg PO QPM [facility] Last Admin: 06/10/17 18:44 Dose: Not Given Furosemide (Lasix) 40 mg PO DAILY [facility] Last Admin: 06/11/17 08:33 Dose: 40 mg Gabapentin (Neurontin) 100 mg PO BID [facility] Last Admin: 06/11/17 08:23 Dose: 100 mg Glipizide (Glucotrol) 10 mg PO ACD [facility] Last Admin: 06/10/17 18:42 Dose: Not Given Glipizide (Glucotrol) 15 mg PO ACB [facility] Last Admin: 06/11/17 08:24 Dose: 15 mg Glucagon (Glucagen Diagnostic Kit) 0 mg IM STAT PRN; Protocol PRN Reason: Hypoglycemia Protocol Guaifenesin/Dextromethorphan (Robitussin Dm) 10 ml PO Q6 PRN PRN Reason: Cough Last Admin: 06/03/17 23:56 Dose: 10 ml Heparin Sodium (Porcine) (Heparin) 5,000 units SC Q8 [facility] PRN Reason: Protocol Last Admin: 06/11/17 13:44 Dose: Not Given Meclizine HCl (Antivert) 25 mg PO BID [facility] Last Admin: 06/11/17 13:44 Dose: Not Given Mirtazapine (Remeron) 30 mg PO HS [facility] Last Admin: 06/10/17 21:26 Dose: 30 mg Nifedipine (Procardia Xl) 60 mg PO Q12H [facility] Last Admin: 06/11/17 13:45 Dose: Not Given Risperidone (Risperdal Tab) 3 mg PO HS [facility] Last Admin: 06/10/17 21:27 Dose: 3 mg Sennosides (Senokot Tab) 8.6 mg PO HS [facility] Last Admin: 06/10/17 21:27 Dose: 8.6 mg - Labs Labs: 06/11/17 04:00 06/11/17 05:45 PT 10.4 Seconds (9.8-13.1) 05/30/17 17:30 INR 0.9 (0.9-1.2) 05/30/17 17:30 APTT 35.2 Seconds (25.6-37.1) 05/30/17 17:30 - Constitutional Appears: Non-toxic, No Acute Distress - Eye Exam Eye Exam: absent: Scleral icterus - ENT Exam ENT Exam: Mucous Membranes Moist - Respiratory Exam Additional comments: Mild R basal rales, decreased breath sounds on L; - Cardiovascular Exam Cardiovascular Exam: RRR, +S1, +S2 - GI/Abdominal Exam GI & Abdominal Exam: Soft. absent: Distended, Tenderness - Extremities Exam Additional comments: markedly edematous legs extending to thighs; - Neurological Exam Neurological Exam: Alert, Awake - Psychiatric Exam Psychiatric exam: absent: Agitated - Skin Skin Exam: Warm. 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; overall poor renal prognosis; mainstay of treatment is KEVIN blockade (being stopped as mentioned above), and adequate glycemic/blood pressure control (goal < 130/80); should continue bid dosing of lasix as well (40 in am and 20 in pm) as nephrotic syndrome results in a sodium avid state and once daily diuretic dosing is generally not effective; Discussed with patient that he needs close outpatient f/u; he can f/u in our renal clinic in [facility]; Status: Acute (3) Hypertensive CKD (chronic kidney disease) Assessment & Plan: BP had been controlled but again elevated in the setting of patient non- compliance; EPO may have also increased BP; continue current meds; will go back to clonidine 0.1 mg bid since lisinopril is being stopped; Status: Acute (4) Anemia of renal disease Assessment & Plan: Hgb stable, will continue to give EPO three times a week while still here; Status: Acute (5) Chronic kidney disease-mineral and bone disorder Assessment & Plan: Secondary hyperparathyroidism; continue ergocalciferol 50,000 u weekly; continue phoslo 2 tabs w/ meals; Status: Acute (6) CHF (congestive heart failure) Assessment & Plan: With diastolic and mild systolic dysfunction; diuretics as mentioned above; Status: Acute
[2017-06-12 06:44] LABS: POTASSIUM 5.3 MMOL/L (3.6-5.0)
[2017-06-12 07:18] VITALS: BP 153/75; PULSE 67; RESP 20; TEMP 98.1; O2SAT 95
--- NOTE | 2017-06-12 07:21 | CP.PCM.PN ---
Subjective - Date & Time of Evaluation Date of Evaluation: 06/12/17 Time of Evaluation: 07:18 - Subjective Subjective: Mr. Durand was seen and examined at the bedside. He is alert, oriented in all spheres. He denies any headache, dizziness, nausea, or vomiting. He is sitting in his bed all dressed up, ready to be discharge. According to the staff, he remains non-compliant to some of his medical regimen such as his blood pressure medications. He further states of being discharge today to a correction. There was no untoward events overnight. Objective - Vital Signs/Intake and Output Vital Signs (last 24 hours): Temp Pulse Resp BP Pulse Ox 97.7 F 72 19 164/78 H 94 L 06/12/17 00:37 06/12/17 00:37 06/12/17 00:37 06/12/17 00:37 06/12/17 00:37 - Medications Medications: Current Medications Acetaminophen (Tylenol 325mg Tab) 650 mg PO Q6 [facility] Last Admin: 06/12/17 04:37 Dose: Not Given Al Hydrox/Mg Hydrox/Simethicone (Maalox Plus 30 Ml) 30 ml PO Q4 PRN PRN Reason: Indigestion / Heartburn Albuterol/Ipratropium (Duoneb 3 Mg/0.5 Mg (3 Ml) Ud) 3 ml INH RQ6 PRN PRN Reason: Shortness of Breath Last Admin: 06/03/17 23:55 Dose: 3 ml Artificial Tears (Artificial Tears) 2 drop OU Q4 PRN PRN Reason: Dry eyes Last Admin: 06/02/17 15:09 Dose: 2 drop Aspirin (Ecotrin) 81 mg PO DAILY [facility] Last Admin: 06/11/17 08:24 Dose: 81 mg Atorvastatin Calcium (Lipitor) 40 mg PO DAILY [facility] Last Admin: 06/11/17 08:33 Dose: 40 mg Calcium Acetate (Phoslo) 2,001 mg PO WM [facility] Last Admin: 06/11/17 19:08 Dose: Not Given Carvedilol (Coreg) 25 mg PO Q12 [facility] Last Admin: 06/11/17 21:27 Dose: 25 mg Clonidine HCl (Catapres) 0.1 mg PO BID [facility] Last Admin: 06/11/17 19:05 Dose: Not Given Cyanocobalamin (Vitamin B12 1000 Mcg Tab) 1,000 mcg PO DAILY [facility] Last Admin: 06/11/17 08:27 Dose: 1,000 mcg Dextrose (Dextrose 50% Inj) 0 ml IV STAT PRN; Protocol PRN Reason: Hypoglycemia Protocol Dextrose (Glutose 15) 0 gm PO ONCE PRN; Protocol PRN Reason: Hypoglycemia Protocol Docusate Sodium (Colace) 100 mg PO BID [facility] Last Admin: 06/11/17 19:04 Dose: Not Given Epoetin Roel (Procrit) 10,000 unit SC TTS [facility] Last Admin: 06/10/17 16:45 Dose: 10,000 unit Ergocalciferol (Drisdol 50,000 Intl Units Cap) 1 cap PO Q7D [facility] Last Admin: 06/09/17 09:54 Dose: 1 cap Ferrous Sulfate (Feosol) 325 mg PO BID [facility] Last Admin: 06/11/17 19:05 Dose: Not Given Furosemide (Lasix) 20 mg PO QPM [facility] Last Admin: 06/10/17 18:44 Dose: Not Given Furosemide (Lasix) 40 mg PO DAILY [facility] Last Admin: 06/11/17 08:33 Dose: 40 mg Gabapentin (Neurontin) 100 mg PO BID [facility] Last Admin: 06/11/17 19:08 Dose: Not Given Glipizide (Glucotrol) 10 mg PO ACD [facility] Last Admin: 06/11/17 19:06 Dose: Not Given Glipizide (Glucotrol) 15 mg PO ACB [facility] Last Admin: 06/11/17 08:24 Dose: 15 mg Glucagon (Glucagen Diagnostic Kit) 0 mg IM STAT PRN; Protocol PRN Reason: Hypoglycemia Protocol Guaifenesin/Dextromethorphan (Robitussin Dm) 10 ml PO Q6 PRN PRN Reason: Cough Last Admin: 06/03/17 23:56 Dose: 10 ml Heparin Sodium (Porcine) (Heparin) 5,000 units SC Q8 [facility] PRN Reason: Protocol Last Admin: 06/12/17 00:20 Dose: Not Given Meclizine HCl (Antivert) 25 mg PO BID [facility] Last Admin: 06/11/17 19:04 Dose: Not Given Mirtazapine (Remeron) 30 mg PO HS [facility] Last Admin: 06/11/17 21:42 Dose: Not Given Nifedipine (Procardia Xl) 60 mg PO Q12H [facility] Last Admin: 06/11/17 21:27 Dose: 60 mg Risperidone (Risperdal Tab) 3 mg PO HS [facility] Last Admin: 06/11/17 21:42 Dose: Not Given Sennosides (Senokot Tab) 8.6 mg PO HS [facility] Last Admin: 06/11/17 21:42 Dose: Not Given - Labs Labs: 06/11/17 04:00 06/12/17 06:00 PT 10.4 Seconds (9.8-13.1) 05/30/17 17:30 INR 0.9 (0.9-1.2) 05/30/17 17:30 APTT 35.2 Seconds (25.6-37.1) 05/30/17 17:30 - Constitutional Appears: No Acute Distress - Head Exam Head Exam: ATRAUMATIC - Neurological Exam Neurological Exam: Alert, Awake, Oriented x3 Neuro motor strength exam: Left Upper Extremity: 5, Right Upper Extremity: 5, Left Lower Extremity: 5, Right Lower Extremity: 5 Additional comments: Neurological unchanged form previous examination. Assessment and Plan (1) Blurry vision, bilateral Assessment & Plan: Case discussed with Dr. Das, continue all current medical regimen. If patient to be discharge today, to continue aspirin 81 mg PO daily, Lipitor 40 mg PO daily, and follow up with neurology as an outpatient in a month. Status: Acute
[2017-06-12] MEDS: EPOETIN ALFA 10,000 UNIT/ML ML SC SCH (09:04)
[2017-06-12] MEDS ORDERED: Sod Polystyrene Sulf 15 gm/60 ml Susp PO ONE (09:46)
[2017-06-12] MEDS: NIFEdipine 60 mg ER Tab PO SCH (10:10)
--- NOTE | 2017-06-12 13:02 | CP.PCM.DIS ---
Provider - Provider Date of Admission: 05/30/17 18:19 Attending physician: Elizabeth Kelley MD Time Spent in preparation of Discharge (in minutes): 30 Hospital Course - Lab Results Lab Results: Micro Results 06/04/17 06:31 Urine Urine Culture - Final No Growth (<1,000 CFU/ML) 05/30/17 17:20 Blood Blood Culture - Final NO GROWTH AFTER 5 DAYS 05/30/17 17:20 Blood Gram Stain - Final TEST NOT PERFORMED 05/30/17 17:30 Blood Blood Culture - Final NO GROWTH AFTER 5 DAYS 05/30/17 17:30 Blood Gram Stain - Final TEST NOT PERFORMED 05/30/17 19:35 Urine Urine Culture - Final Staphylococcus Epidermidis Most Recent Lab Values WBC 6.1 K/uL (4.8-10.8) 06/11/17 04:00 RBC 2.87 Mil/uL (4.40-5.90) L 06/11/17 04:00 Hgb 9.0 g/dL (12.0-18.0) L 06/11/17 04:00 Hct 26.7 % (35.0-51.0) L 06/11/17 04:00 MCV 92.8 fl (80.0-94.0) 06/11/17 04:00 MCH 31.4 pg (27.0-31.0) H 06/11/17 04:00 MCHC 33.9 g/dL (33.0-37.0) 06/11/17 04:00 RDW 15.1 % (11.5-14.5) H 06/11/17 04:00 Plt Count 243 K/uL (130-400) 06/11/17 04:00 MPV 10.5 fl (7.2-11.7) 06/10/17 05:35 Neut % (Auto) 66.6 % (50.0-75.0) 06/10/17 05:35 Lymph % (Auto) 22.1 % (20.0-40.0) 06/10/17 05:35 [place] % (Auto) 7.4 % (0.0-10.0) 06/10/17 05:35 Eos % (Auto) 2.3 % (0.0-4.0) 06/10/17 05:35 Baso % (Auto) 1.6 % (0.0-2.0) 06/10/17 05:35 Neut # 4.4 K/uL (1.8-7.0) 06/10/17 05:35 Lymph # 1.5 K/uL (1.0-4.3) 06/10/17 05:35 [place] # 0.5 K/uL (0.0-0.8) 06/10/17 05:35 Eos # 0.2 K/uL (0.0-0.7) 06/10/17 05:35 Baso # 0.1 K/uL (0.0-0.2) 06/10/17 05:35 PT 10.4 Seconds (9.8-13.1) 05/30/17 17:30 INR 0.9 (0.9-1.2) 05/30/17 17:30 APTT 35.2 Seconds (25.6-37.1) 05/30/17 17:30 pO2 26 mm/Hg (30-55) L 05/30/17 17:40 VBG pH 7.27 (7.32-7.43) L 05/30/17 17:40 VBG pCO2 45 mmHg (40-60) 05/30/17 17:40 VBG HCO3 18.5 mmol/L 05/30/17 17:40 VBG Total CO2 22.1 mmol/L (22-28) 05/30/17 17:40 VBG O2 Sat (Calc) 62.2 % (40-65) 05/30/17 17:40 VBG Base Excess -6.2 mmol/L (0.0-2.0) L 05/30/17 17:40 VBG Potassium 4.1 mmol/L (3.6-5.2) 05/30/17 17:40 Sodium 155.0 mmol/L (132-148) H 05/30/17 17:40 Chloride 110.0 mmol/L (98-107) H 05/30/17 17:40 Glucose 129 mg/dL (75-110) H 05/30/17 17:40 Lactate 0.5 mmol/L (0.7-2.1) L 05/30/17 17:40 FiO2 21.0 % 05/30/17 17:40 Sodium 144 mmol/l (132-148) 06/12/17 06:00 Potassium 5.3 MMOL/L (3.6-5.0) H 06/12/17 06:00 Chloride 115 mmol/L (98-107) H 06/12/17 06:00 Carbon Dioxide 23 mmol/L (22-30) 06/12/17 06:00 Anion Gap 11 (10-20) 06/12/17 06:00 BUN 77 mg/dl (9-20) H 06/12/17 06:00 Creatinine 2.3 mg/dl (0.8-1.5) H 06/12/17 06:00 Est GFR ( Amer) 35 06/12/17 06:00 Est GFR (Non-Af Amer) 29 06/12/17 06:00 POC Glucose (mg/dL) 212 mg/dL (65-110) H 06/12/17 10:38 Random Glucose 130 mg/dL (75-110) H 06/12/17 06:00 Calcium 8.0 mg/dL (8.4-10.2) L 06/12/17 06:00 Phosphorus 6.2 mg/dl (2.5-4.5) H 06/10/17 05:35 Magnesium 2.0 MG/DL (1.6-2.3) 06/10/17 05:35 Iron 51 ug/dL (49-181) 06/01/17 05:30 TIBC 200 ug/dL (250-450) L 06/01/17 05:30 % Saturation 26 % (20-55) 06/01/17 05:30 Ferritin 117.0 ng/Ml (17.9-464) 06/01/17 05:30 Total Bilirubin 0.1 mg/dl (0.2-1.3) L 06/11/17 05:45 AST 38 U/L (17-59) 06/11/17 05:45 ALT 91 U/L (21-72) H 06/11/17 05:45 Alkaline Phosphatase 209 U/L (38-126) H 06/11/17 05:45 Troponin I 0.0180 ng/mL (0.00-0.120) 05/30/17 17:30 NT-Pro-B Natriuret Pep 4750 pg/ml (0-900) H 05/30/17 17:30 Total Protein 5.8 G/DL (6.3-8.2) L 06/11/17 05:45 Albumin 2.8 g/dL (3.5-5.0) L 06/11/17 05:45 Globulin 3.0 gm/dL (2.2-3.9) 06/11/17 05:45 Albumin/Globulin Ratio 0.9 (1.0-2.1) L 06/11/17 05:45 Triglycerides 76 mg/DL (0-149) D 06/03/17 10:10 Cholesterol 120 mg/dL (0-199) 06/03/17 10:10 LDL Cholesterol Direct 49 mg/dL (0-129) 06/03/17 10:10 HDL Cholesterol 44 MG/DL (30-70) 06/03/17 10:10 Vitamin B12 305 pg/mL (239-931) 06/03/17 10:10 25-OH Vitamin D Total < 12.8 NG/ML (30.0-100.0) L 06/01/17 05:30 Folate 12.3 ng/mL 06/03/17 10:10 Procalcitonin 0.13 NG/ML (0.19-0.49) L 05/31/17 05:20 TSH 3rd Generation 3.97 mIU/ML (0.46-4.68) 06/06/17 16:08 Calcium (PTH Intact) 7.7 mg/dL (8.6-10.3) L 06/01/17 05:30 PTH w/Ion &Tot Calcium 84 pg/mL (14-64) H 06/01/17 05:30 Venous Blood Potassium 4.1 mmol/L (3.6-5.2) 05/30/17 17:40 Urine Color Straw (YELLOW) 06/04/17 23:35 Urine Clarity Clear (Clear) 06/04/17 23:35 Urine pH 6.0 (5.0-8.0) 06/04/17 23:35 Ur Specific [place] 1.010 (1.003-1.030) 06/04/17 23:35 Urine Protein 100 mg/dL (NEGATIVE) 06/04/17 23:35 Urine Glucose (UA) 150 mg/dL (Normal) 06/04/17 23:35 Urine Ketones Negative mg/dL (NEGATIVE) 06/04/17 23:35 Urine Blood Negative (NEGATIVE) 06/04/17 23:35 Urine Nitrate Negative (NEGATIVE) 06/04/17 23:35 Urine Bilirubin Negative (NEGATIVE) 06/04/17 23:35 Urine Urobilinogen 0.2-1.0 mg/dL (0.2-1.0) 06/04/17 23:35 Ur Leukocyte Esterase Neg Justino/uL (Negative) 06/04/17 23:35 Urine RBC (Auto) 4 /hpf (0-3) H 06/04/17 23:35 Urine Microscopic WBC 1 /hpf (0-5) 06/04/17 23:35 Ur Squamous Epith Cells < 1 /hpf (0-5) 06/04/17 23:35 Urine Bacteria Rare (<OCC) 06/04/17 23:35 Hyaline Casts 3-5 /hpf (0-2) H 05/30/17 19:35 Stool Occult Blood Negative (NEGATIVE) 06/03/17 08:18 Alcohol, Quantitative < 10 mg/dl (0-10) 05/30/17 17:30 RPR Nonreactive (NONREACTIVE) 06/05/17 09:03 Influenza Typ A,B (EIA) Negative for flu a/b (NEGATIVE) 05/30/17 17:30 Blood Type A NEGATIVE 06/06/17 16:08 Antibody Screen Negative 06/06/17 16:08 Crossmatch See Detail 06/06/17 16:08 BBK History Checked Patient has bt 06/06/17 16:08 - Hospital Course Hospital Course: Admission Date: 05/30/17 Discharge Diagnosis: 06/12/17 Hospital Course: 66 year old male with hx of CKD, chronic pleural effusion, chronic anemia, NIDDM2, HTN admitted to [facility] for weakness and gait instability and found to have BL LE edema secondary to Nephrotic Syndrome. A kidney biopsy was completed. Patient was seen by [facility], Dr. Cassidy, and his blood pressure and CKD medications were optimized. During his hospital course, he became anemic and was transfused 1 unit of blood. Patient also received multiple days of physical therapy for weakness and unsteady gait and was discharged on a rolling walker. Of note, pt had multiple episodes of being non compliant with treatment throughout his stay. Patient was safely discharged to [facility]. Discharge Medications: Aspirin (Ecotrin) 81 mg PO DAILY THOMAS Atorvastatin Calcium (Lipitor) 40 mg PO DAILY THOMAS Clopidogrel 75mg PO Daily 30 days (RX given) Calcium Acetate (Phoslo) 2,001 mg PO WM THOMAS Carvedilol (Coreg) 25 mg PO Q12 THOMAS (RX given) (RX given) Clonidine HCl (Catapres) 0.1 mg PO DAILY THOMAS (RX given) Cyanocobalamin (Vitamin B12 1000 Mcg Tab) 1,000 mcg PO DAILY THOMAS (RX given) Epoetin Roel (Procrit) 10,000 unit SC TTS THOMAS (RX given) (RX given) Ergocalciferol (Drisdol 50,000 Intl Units Cap) 1 cap PO Q7D THOMAS (RX given) Ferrous Sulfate (Feosol) 325 mg PO BID THOMAS (RX given) (RX given) Furosemide (Lasix) 20 mg PO QPM THOMAS Furosemide (Lasix) 40 mg PO DAILY THOMAS Gabapentin (Neurontin) 100 mg PO BID THOMAS Glipizide (Glucotrol) 10 mg PO ACD THOMAS Glipizide (Glucotrol) 15 mg PO ACB THOMAS Mirtazapine (Remeron) 30 mg PO HS THOMAS Nifedipine (Procardia Xl) 60 mg PO Q12H THOMAS Risperidone (Risperdal Tab) 3 mg PO HS THOMAS Condition upon Discharge: Fair Activity: Ambulating with Rolling walker Discharge Instructions: Continue taking medications. Follow up with PMD at [facility]. Discharge Exam - Head Exam Head Exam: ATRAUMATIC - ENT Exam ENT Exam: Mucous Membranes Moist - Respiratory Exam Respiratory Exam: NORMAL BREATHING PATTERN. absent: Accessory Muscle Use, Rales , Wheezes, Respiratory Distress - Cardiovascular Exam Cardiovascular Exam: REGULAR RHYTHM, +S1, +S2. absent: Systolic Murmur - GI/Abdominal Exam GI & Abdominal Exam: Normal Bowel Sounds, Soft. absent: Tenderness - Extremities Exam Extremities exam: pedal edema (BL LE edema, +1 pitting up to mid rubio. ) - Neurological Exam Neurological exam: Alert, Oriented x3 - Psychiatric Exam Psychiatric exam: Normal Affect Discharge Plan - Discharge Medications Prescriptions: Carvedilol [Coreg] 25 mg PO Q12 30 Days #60 tab cloNIDine [Catapres] 0.1 mg PO BID 30 Days #60 tab Clopidogrel [Plavix] 75 mg PO DAILY 30 Days #30 tab Cyanocobalamin [Vitamin B12 1000 mcg Tab] 1,000 mcg PO DAILY 30 Days #30 tab Epoetin Roel [Procrit] 10,000 unit SC TTS 20 Days #30 ml Ergocalciferol [Drisdol 50,000 Intl Units Cap] 1 cap PO Q7D 30 Days #4 cap Ferrous Sulfate [Feosol] 325 mg PO BID 30 Days #60 tab Furosemide [Lasix] 20 mg PO QPM 30 Days #30 tab Furosemide [Lasix] 40 mg PO DAILY 30 Days #30 tab NIFEdipine ER [Procardia XL] 60 mg PO Q12H 30 Days #30 ter - Follow Up Plan Condition: GUARDED Disposition: HOME/ ROUTINE Instructions: Heart Failure (DC), Percutaneous Kidney Biopsy (DC) Additional Instructions: follow up at [facility] Jun 16 @ 2:20pm with Dr. Nova at [facility]. Referrals: [facility] [Outside]
--- NOTE | 2017-06-25 12:54 | PCM.SURG1 ---
Surgeon's Initial Post Op Note - Surgeon's Notes Surgeon: Antonio Rebolledo MD Journeyman Meat Cutter: NONE Type of Anesthesia: Local Pre-Operative Diagnosis: Left pleural effusion Operative Findings: US showed a large left pleural effusion. Post-Operative Diagnosis: Left pleural effusion Operation Performed: US guided left thoracentesis. Specimen/Specimens Removed: 1100 cc of straw colored fluid Estimated Blood Loss: EBL {In ML}: 1 Blood Products Given: N/A Drains Used: No Drains Post-Op Condition: Fair Date of Surgery/Procedure: 06/12/17 Time of Surgery/Procedure: 11:10
== END 2017-06-12 12:17 | disposition home or self-care (01) | DRG 544 ==
LOC: H.ER 16:42 → H.ERHOLD 18:19 → H.TEL 20:47 → H.MEDSURG1 06-03 18:43
PROVIDERS: ADMIT Family Medicine Geriatric Medicine; ATTEND Family Medicine Geriatric Medicine
PROC: 0TB13ZX Excision of Left Kidney, Percutaneous Approach, Diagnostic (ICD-10-PCS; 2017-06-05)
PROC: 30233N1 Transfusion of Nonautologous Red Blood Cells into Peripheral Vein, Percutaneous Approach (ICD-10-PCS; principal; 2017-06-06)
DX: I13.0 Hypertensive heart and chronic kidney disease with heart failure and stage 1 through stage 4 chronic kidney disease, or unspecified chronic kidney disease (principal); I50.43 Acute on chronic combined systolic (congestive) and diastolic (congestive) heart failure; N17.9 Acute kidney failure, unspecified; E11.21 Type 2 diabetes mellitus with diabetic nephropathy; N25.81 Secondary hyperparathyroidism of renal origin; I45.81 Long QT syndrome; D50.9 Iron deficiency anemia, unspecified; D63.1 Anemia in chronic kidney disease; F17.200 Nicotine dependence, unspecified, uncomplicated; E11.22 Type 2 diabetes mellitus with diabetic chronic kidney disease; N18.3 Chronic kidney disease, stage 3 (moderate); D63.8 Anemia in other chronic diseases classified elsewhere; F17.210 Nicotine dependence, cigarettes, uncomplicated; H53.8 Other visual disturbances; R80.9 Proteinuria, unspecified; M89.9 Disorder of bone, unspecified; Z59.0 Homelessness; Z91.19 Patient's noncompliance with other medical treatment and regimen; Z91.14 Patient's other noncompliance with medication regimen; F32.9 Major depressive disorder, single episode, unspecified; G89.29 Other chronic pain; R26.81 Unsteadiness on feet; L98.9 Disorder of the skin and subcutaneous tissue, unspecified; J06.9 Acute upper respiratory infection, unspecified

== ENCOUNTER 2017-06-12 18:24 | Inpatient (IN) | payer SELFPAY ==
[2017-06-12 19:52] LABS: BASO # 0.1 K/uL (0.0-0.2); BASO % 1.3 % (0.0-2.0); EOS # 0.2 K/uL (0.0-0.7); EOS % 2.3 % (0.0-4.0); LYMPH # 1.3 K/uL (1.0-4.3); LYMPH % 18.2 % (20.0-40.0); MEAN CELL VOLUME 94.4 fl (80.0-94.0); MEAN CORPUSCULAR HEMOGLOBIN 30.3 pg (27.0-31.0); MEAN CORPUSCULAR HGB CONC 32.1 g/dL (33.0-37.0); MEAN PLATELET VOLUME 10.1 fl (7.2-11.7); MONO # 0.5 K/uL (0.0-0.8); MONO % 7.3 % (0.0-10.0); NEUT # 4.9 K/uL (1.8-7.0); NEUT % 70.9 % (50.0-75.0); RED CELL DISTRIBUTION WIDTH 15.7 % (11.5-14.5); WHITE BLOOD COUNT 6.9 K/uL (4.8-10.8)
[2017-06-12 20:01] LABS: BILIRUBIN,TOTAL 0.2 mg/dl (0.2-1.3); CALCIUM 8.2 mg/dL (8.4-10.2); POTASSIUM 4.8 MMOL/L (3.6-5.0); TOTAL PROTEIN 6.1 G/DL (6.3-8.2)
[2017-06-12 20:04] LABS: PARTIAL THROMBOPLASTIN TIME 35.7 Seconds (25.6-37.1)
[2017-06-12 20:09] LABS: TROPONIN I 0.014 ng/mL (0.00-0.120)
[2017-06-12] MEDS ORDERED: Ergocalciferol 50,000 Intl Units Cap PO SCH (21:00)
--- NOTE | 2017-06-12 21:02 | ED PDOC ---
HPI:Nausea, Vomiting, Diarrhea Time Seen by Provider: 06/12/17 19:02 Chief Complaint (Nursing): Lower Extremity Problem/Injury Chief Complaint (Provider): diarrhea History Per: Patient Onset/Duration Of Symptoms: Hrs (2) Current Symptoms Are (Timing): Still Present Quality Of Discomfort: Cramping, "Pain" Associated Symptoms: Diarrhea. denies: Nausea, Vomiting, Loss Of Appetite, Urinary Symptoms Additional Complaint(s): Diarrhea sudden onset multiple episodes started about 2 hours prior to arrival, not sure if it's bloody. Reports associated crampy pain. He is unable to control the episodes and has had multiple bowel movements in his clothing Pt just discharged from hospital this afternoon. Admitted for CHF, pleural effusion, nephrotic syndrome/renal insufficiency, and anemia which required transfusion. He is homeless and reports that when he went to assisted after discharge, there were no beds. Past Medical History Reviewed: Historical Data, Nursing Documentation, Vital Signs Vital Signs: Last Vital Signs Temp 97.6 F 06/12/17 18:32 Pulse 74 06/12/17 20:41 Resp 18 06/12/17 20:41 BP 180/70 H 06/12/17 20:41 Pulse Ox 97 06/12/17 20:41 - Medical History PMH: Anemia, Anxiety, Bipolar Disorder, CHF, Depression, Diabetes (type II), HTN , Peripheral Edema, Pneumonia, Chronic Kidney Disease, Chronic Pain (b/l leg pain) Denies: Arthritis, COPD, Dementia, HIV, Hypercholesterolemia, Hypothyroidism , Rheumatoid Arthritis - Family History Family History: States: Unknown Family Hx - Social History Current smoker - smoking cessation education provided: Yes - Home Medications Home Medications: Ambulatory Orders Medication Instructions Recorded Aspirin [Ecotrin] 81 mg PO DAILY #30 tabec 05/19/17 Atorvastatin [Lipitor] 40 mg PO DAILY #30 tab 05/19/17 Calcium Acetate [Phoslo] 1,334 mg PO WM #180 capsule 05/19/17 Gabapentin [Neurontin] 100 mg PO BID #60 cap 05/19/17 GlipiZIDE [Glucotrol] 10 mg PO ACD #30 tab 05/19/17 GlipiZIDE [Glucotrol] 15 mg PO ACB #90 tab 05/19/17 Lidocaine 5% [Lidoderm] 1 ea TD DAILY #30 patch 05/19/17 Metoprolol Succinate [Toprol XL] 25 mg PO DAILY #30 tab 05/19/17 Mirtazapine [Remeron] 30 mg PO HS #30 tab 05/19/17 risperiDONE [RisperDAL Tab] 3 mg PO HS #30 tab 05/19/17 traMADol [Ultram] 50 mg PO Q6 PRN #7 tab 05/19/17 Ibuprofen [Motrin Tab] 600 mg PO Q6 #20 tab 05/21/17 Carvedilol [Coreg] 25 mg PO Q12 30 Days #60 tab 06/12/17 Clopidogrel [Plavix] 75 mg PO DAILY 30 Days #30 tab 06/12/17 Cyanocobalamin [Vitamin B12 1000 1,000 mcg PO DAILY 30 Days #30 tab 06/12/17 mcg Tab] Epoetin Roel [Procrit] 10,000 unit SC TTS 20 Days #30 ml 06/12/17 Ergocalciferol [Drisdol 50,000 1 cap PO Q7D 30 Days #4 cap 06/12/17 Intl Units Cap] Ferrous Sulfate [Feosol] 325 mg PO BID 30 Days #60 tab 06/12/17 Furosemide [Lasix] 20 mg PO QPM 30 Days #30 tab 06/12/17 Furosemide [Lasix] 40 mg PO DAILY 30 Days #30 tab 06/12/17 NIFEdipine ER [Procardia XL] 60 mg PO Q12H 30 Days #30 ter 06/12/17 cloNIDine [Catapres] 0.1 mg PO BID 30 Days #60 tab 06/12/17 - Allergies Allergies/Adverse Reactions: Allergies Allergy/AdvReac Type Severity Reaction Status Date / Time No Known Allergies Allergy Verified 05/21/17 16:02 Review of Systems ROS Statement: Except As Marked, All Systems Reviewed And Found Negative (and as per HPI) Constitutional: Positive for: Weakness, Malaise Cardiovascular: Positive for: Light Headedness. Negative for: Chest Pain Respiratory: Positive for: Shortness of Breath, SOB with Exertion Gastrointestinal: Positive for: Abdominal Pain, Diarrhea. Negative for: Nausea , Vomiting Physical Exam - Reviewed Nursing Documentation Reviewed: Yes Vital Signs Reviewed: Yes - Physical Exam Appears: Positive for: In Acute Distress (tired appearing) Head Exam: Positive for: ATRAUMATIC, NORMOCEPHALIC Skin: Positive for: Pallor Eye Exam: Positive for: EOMI, PERRL ENT: Positive for: Other (tacky mucus membranes) Neck: Positive for: Painless ROM, Supple Cardiovascular/Chest: Positive for: Regular Rate, Rhythm. Negative for: Tachycardia Respiratory: Positive for: Rhonchi. Negative for: Accessory Muscle Use, Respiratory Distress Gastrointestinal/Abdominal: Positive for: Soft, Tenderness (diffuse mild). Negative for: Mass, Distended, Guarding, Rebound Back: Positive for: Normal Inspection. Negative for: Decreased ROM Extremity: Positive for: Normal ROM. Negative for: Deformity Lymphatic: Negative for: Adenopathy Neurologic/Psych: Positive for: Alert. Negative for: Motor/Sensory Deficits - Laboratory Results Result Diagrams: 06/14/17 05:30 06/14/17 05:30 - ECG O2 Sat by Pulse Oximetry: 97 Pulse Ox Interpretation: Normal - Radiology X-Ray Interpretation: Other (LEFT left effusion) Disposition - Clinical Impression Clinical Impression: CHF exacerbation, Edema, Diarrhea Discussed With : Lori Magana Doctor Will See Patient In The: ED Counseled Patient/Family Regarding: Studies Performed, Diagnosis - Disposition Disposition Time: 20:30 Condition: STABLE - Pt Status Changed To: Hospital Disposition Of: Observation - POA Present On Arrival: None
--- NOTE | 2017-06-12 21:06 | CP.PCM.HP ---
History of Present Illness - History of Present Illness History of Present Illness: 66 year old male with PMH of HTN, CKD, NIDDM2, chronic left sided pleural effusion, nephrotic syndrome, and anemia, presented with complaints of multiple bowel movements, and lower extremity pain and difficulty ambulating. He was discharged earlier today, to senior living but states there were no beds. He had about nine bowel movements, non bloody without associated abdominal pain, nausea or vomiting. He did not have anything to eat since lunch. His lower extremities are painful and edematous. During his previous admission he was found to have Nephrotic Syndrome for which he had renal biopsy. The results of his renal biopsy are pending. Patient is poor historian. ROS: Admits to having diarrhea, lower extremity pain and edema. Denies fevers, chills, headache, dizziness, chest pain, dyspnea, cough, abdominal pain, nausea, vomiting. PMH: HTN, NIIDM2, CKD stage 3, depression, left pleural effusion, nephrotic syndrome, Anemia Medications as per orders Allergies: NKDA Social: denies etoh, +tobacco use Surgical Hx:thoracocentesis, left renal biopsy Family hx: unknown PMD: NHC Present on Admission - Present on Admission Any Indicators Present on Admission: No Past Patient History - Infectious Disease Hx of Infectious Diseases: None - Tetanus Immunizations Tetanus Immunization: Unknown - Past Medical History & Family History Past Medical History?: Yes - Past Social History Smoking Status: Light Smoker < 10 Cigarettes Daily - CARDIAC Hx Congestive Heart Failure: Yes Hx Hypercholesterolemia: No Hx Hypertension: Yes Hx Peripheral Edema: Yes - PULMONARY Hx Chronic Obstructive Pulmonary Disease (COPD): No Hx Pneumonia: Yes - NEUROLOGICAL Hx Dementia: No - HEENT Hx HEENT Problems: No - RENAL Hx Chronic Kidney Disease: Yes - ENDOCRINE/METABOLIC Hx Hypothyroidism: No - HEMATOLOGICAL/ONCOLOGICAL Hx Anemia: Yes Hx Human Immunodeficiency Virus (HIV): No - INTEGUMENTARY Hx Dermatological Problems: No - MUSCULOSKELETAL/RHEUMATOLOGICAL Hx Arthritis: No Hx Rheumatoid Arthritis: No - GASTROINTESTINAL Hx Gastrointestinal Disorders: No - GENITOURINARY/GYNECOLOGICAL Hx Genitourinary Disorders: No - PSYCHIATRIC Hx Anxiety: Yes Hx Bipolar Disorder: Yes Hx Depression: Yes - SURGICAL HISTORY Hx Surgeries: No - ANESTHESIA Hx Anesthesia: Yes Hx Anesthesia Reactions: No Hx Malignant Hyperthermia: No Meds Allergies/Adverse Reactions: Allergies Allergy/AdvReac Type Severity Reaction Status Date / Time No Known Allergies Allergy Verified 05/21/17 16:02 Physical Exam - Constitutional Appears: Non-toxic, No Acute Distress, Chronically Ill - Head Exam Head Exam: ATRAUMATIC, NORMAL INSPECTION, NORMOCEPHALIC - Eye Exam Eye Exam: EOMI Pupil Exam: NORMAL ACCOMODATION - Neck Exam Neck exam: Positive for: Full Rom, Normal Inspection - Respiratory Exam Respiratory Exam: Decreased Breath Sounds (left lung posteriorly), NORMAL BREATHING PATTERN. absent: Accessory Muscle Use, Rales, Rhonchi, Wheezes, Respiratory Distress Additional comments: right lung clear to auscultation - Cardiovascular Exam Cardiovascular Exam: REGULAR RHYTHM, +S1, +S2. absent: Tachycardia Additional comments: distant heart sounds - GI/Abdominal Exam GI & Abdominal Exam: Soft. absent: Distended, Guarding, Hyperactive Bowel Sounds, Normal Bowel Sounds, Rebound, Rigid, Tenderness - Rectal Exam Rectal Exam: Deferred - Extremities Exam Extremities exam: Positive for: pedal edema (bilaterally, +1 pitting) - Neurological Exam Neurological exam: Alert Additional comments: gait not assessed - Psychiatric Exam Psychiatric exam: Depressed - Skin Skin Exam: Dry, Intact Results - Vital Signs Recent Vital Signs: Last Vital Signs Temp 97.6 F 06/12/17 18:32 Pulse 74 06/12/17 20:41 Resp 18 06/12/17 20:41 BP 180/70 H 06/12/17 20:41 Pulse Ox 97 06/12/17 21:05 - Labs Result Diagrams: 06/12/17 19:44 06/12/17 19:44 Labs: Laboratory Results - last 24 hr 06/12/17 06/12/17 06/12/17 19:01 19:44 19:44 WBC 6.9 RBC 2.97 L Hgb 9.0 L Hct 28.0 L MCV 94.4 H MCH 30.3 MCHC 32.1 L RDW 15.7 H Plt Count 291 MPV 10.1 Neut % (Auto) 70.9 Lymph % (Auto) 18.2 L [place] % (Auto) 7.3 Eos % (Auto) 2.3 Baso % (Auto) 1.3 Neut # 4.9 Lymph # 1.3 [place] # 0.5 Eos # 0.2 Baso # 0.1 PT INR APTT Sodium 146 Potassium 4.8 Chloride 118 H Carbon Dioxide 20 L Anion Gap 13 BUN 72 H Creatinine 2.1 H Est GFR ( Amer) 38 Est GFR (Non-Af Amer) 32 POC Glucose (mg/dL) 142 H Random Glucose 142 H Calcium 8.2 L Total Bilirubin 0.2 AST 54 ALT 93 H Alkaline Phosphatase 249 H Troponin I 0.0140 NT-Pro-B Natriuret Pep 1450 H Total Protein 6.1 L Albumin 3.0 L Globulin 3.1 Albumin/Globulin Ratio 1.0 06/12/17 19:44 WBC RBC Hgb Hct MCV MCH MCHC RDW Plt Count MPV Neut % (Auto) Lymph % (Auto) [place] % (Auto) Eos % (Auto) Baso % (Auto) Neut # Lymph # [place] # Eos # Baso # PT 12.0 INR 1.1 APTT 35.7 Sodium Potassium Chloride Carbon Dioxide Anion Gap BUN Creatinine Est GFR ( Amer) Est GFR (Non-Af Amer) POC Glucose (mg/dL) Random Glucose Calcium Total Bilirubin AST ALT Alkaline Phosphatase Troponin I NT-Pro-B Natriuret Pep Total Protein Albumin Globulin Albumin/Globulin Ratio Assessment & Plan (1) Uncontrolled hypertension Assessment and Plan: 66 year old male with multiple comorbidities presented with complaints of multiple bowel movements, admitted for uncontrolled HTN. Patient is poor historian and non compliant with medications. Has not had BM since arriving to ED. BP systolic 180s upon evaluation however the patient is asymptomatic. He has no headache, chest pain, dyspnea, nausea or vomiting, will resume home medications and monitor BP, admit to telemetry for close monitoring. HTN Medications: Coreg 25 mg q12 Lasix 40 mg PO qAM Lasix 20 mg PO qPM Toprol XL 25mg daily Procardia XL 60mg q12 Status: Acute (2) Anemia Assessment and Plan: stable, had transfusion last admission anemia of chronic disease/iron deficiency on feosol, procrit Status: Chronic (3) Chronic kidney disease, stage III (moderate) Assessment and Plan: secondary to diabetic nephropathy, with associated nephrotic syndrome renal function is stable renal biopsy is pending from previous admission Status: Chronic (4) Pleural effusion Assessment and Plan: chronic, stable, has had throacentesis in the past no respiratory distress f/u CXR report Status: Chronic (5) Type 2 diabetes mellitus Assessment and Plan: -stable -c/w home meds: Glucotrol 15 mg PO ACB/Glucotrol 10mg PO ACD Status: Chronic (6) DVT prophylaxis Assessment and Plan: heparin and scds Status: Acute
[2017-06-12] MEDS: NIFEdipine 60 mg ER Tab PO SCH (21:38)
[2017-06-13] MEDS ORDERED: Metoprolol 1 mg/ml Inj IVP PRN (00:03)
[2017-06-13 07:07] LABS: HEMATOCRIT 25.7 % (35.0-51.0); MEAN CELL VOLUME 94.4 fl (80.0-94.0); MEAN CORPUSCULAR HEMOGLOBIN 30.7 pg (27.0-31.0); MEAN CORPUSCULAR HGB CONC 32.5 g/dL (33.0-37.0); RED CELL DISTRIBUTION WIDTH 15.2 % (11.5-14.5); WHITE BLOOD COUNT 5.2 K/uL (4.8-10.8)
[2017-06-13] MEDS ORDERED: Calcium Acetate 667 MG Capsule PO SCH (07:30)
[2017-06-13 07:38] LABS: ALB/GLOB RATIO 0.9 (1.0-2.1); BILIRUBIN,TOTAL 0.1 mg/dl (0.2-1.3); CALCIUM 7.9 mg/dL (8.4-10.2); POTASSIUM 4.2 MMOL/L (3.6-5.0); TOTAL PROTEIN 5.2 G/DL (6.3-8.2)
--- NOTE | 2017-06-13 07:41 | CP.PCM.PN ---
Subjective - Date & Time of Evaluation Date of Evaluation: 06/13/17 Time of Evaluation: 07:41 - Subjective Subjective: 66 YO M was seen resting comfortably in bed. Denies any overnight events. Has not had any episodes of diarrhea overnight. - Blood pressure remains elevated, patient was not given night time dose, since patients heart rate was low as per nurse. Patient noted to be 170/80 this morning, with a heart rate n the 90's. Nurse was advised to give morning meds - Denies chest pain, SOB, palpitations N/V Objective - Vital Signs/Intake and Output Vital Signs (last 24 hours): Temp Pulse Resp BP Pulse Ox 98.7 F 66 18 146/61 96 06/13/17 04:00 06/13/17 05:00 06/13/17 05:00 06/13/17 05:00 06/13/17 05:00 Intake and Output: 06/13/17 06/13/17 06:59 18:59 Output Total 900 Balance -900 - Medications Medications: Current Medications Acetaminophen (Tylenol 325mg Tab) 650 mg PO Q6 PRN PRN Reason: Pain, Mild (1-3) Aspirin (Ecotrin) 81 mg PO DAILY [facility] Atorvastatin Calcium (Lipitor) 40 mg PO DAILY [facility] Calcium Acetate (Phoslo) 1,334 mg PO WM [facility] Carvedilol (Coreg) 25 mg PO Q12 [facility] Last Admin: 06/12/17 21:38 Dose: 25 mg Clonidine HCl (Catapres) 0.1 mg PO BID [facility] Last Admin: 06/13/17 00:40 Dose: 0.1 mg Clopidogrel Bisulfate (Plavix) 75 mg PO DAILY [facility] Cyanocobalamin (Vitamin B12 1000 Mcg Tab) 1,000 mcg PO DAILY [facility] Epoetin Roel (Procrit) 10,000 unit SC TTS [facility] Ergocalciferol (Drisdol 50,000 Intl Units Cap) 1 cap PO Q7D@2100 [facility] Last Admin: 06/12/17 21:39 Dose: 1 cap Ferrous Sulfate (Feosol) 325 mg PO BID [facility] Furosemide (Lasix) 20 mg PO QPM [facility] Last Admin: 06/12/17 21:37 Dose: 20 mg Furosemide (Lasix) 40 mg PO DAILY [facility] Gabapentin (Neurontin) 100 mg PO BID [facility] Glipizide (Glucotrol) 10 mg PO ACD [facility] Glipizide (Glucotrol) 15 mg PO ACB [facility] Heparin Sodium (Porcine) (Heparin) 5,000 units SC Q12 [facility] PRN Reason: Protocol Last Admin: 06/12/17 21:39 Dose: 5,000 units Lidocaine (Lidoderm) 1 ea TD DAILY [facility] Metoprolol Succinate (Toprol Xl) 25 mg PO DAILY [facility] Metoprolol Tartrate (Lopressor) 5 mg IVP Q6 PRN PRN Reason: Systolic Blood Pressure Mirtazapine (Remeron) 30 mg PO HS [facility] Last Admin: 06/12/17 21:37 Dose: 30 mg Nifedipine (Procardia Xl) 60 mg PO Q12H [facility] Last Admin: 06/12/17 21:38 Dose: 60 mg Risperidone (Risperdal Tab) 3 mg PO HS [facility] Last Admin: 06/12/17 21:40 Dose: 3 mg Tramadol HCl (Ultram) 50 mg PO Q6 PRN PRN Reason: Pain, moderate (4-7) - Labs Labs: 06/13/17 06:50 06/13/17 06:50 PT 12.0 Seconds (9.8-13.1) 06/12/17 19:44 INR 1.1 (0.9-1.2) 06/12/17 19:44 APTT 35.7 Seconds (25.6-37.1) 06/12/17 19:44 - Constitutional Appears: No Acute Distress - Eye Exam Eye Exam: Normal appearance - Respiratory Exam Respiratory Exam: Decreased Breath Sounds (left lung base posteriorly), Clear to Ausculation Bilateral. absent: Rhonchi, Wheezes - Cardiovascular Exam Cardiovascular Exam: REGULAR RHYTHM, +S1, +S2 - GI/Abdominal Exam GI & Abdominal Exam: Soft, Normal Bowel Sounds. absent: Tenderness - Exam Exam: NORMAL INSPECTION - Extremities Exam Additional comments: 1+ b/l pitting edema b/l - Neurological Exam Neurological Exam: Alert, Awake, Oriented x3 - Skin Skin Exam: Normal Color, Warm Additional comments: dry skin, scabs noted on lower extremity Assessment and Plan - Assessment and Plan (Free Text) Assessment: (1) Uncontrolled hypertension Assessment and Plan: HTN Medications: Coreg 25 mg q12 Lasix 40 mg PO qAM Lasix 20 mg PO qPM Toprol XL 25mg daily Procardia XL 60mg q12 Clonadine .1 mg PO BID - Will discuss with nephro, possibility of D/C patients Clonadine, to prevent rebound hypertension outpatient, since patient has a history of non compliance with medications. Can possibly add hydralazine and increase the Coreg. - Continue ICU/Tele monitoring Status: Acute (2) Anemia Assessment and Plan: stable, had transfusion last admission anemia of chronic disease/iron deficiency on feosol, procrit Status: Chronic (3) Chronic kidney disease, stage III (moderate) Assessment and Plan: secondary to diabetic nephropathy, with associated nephrotic syndrome renal function is stable renal biopsy is pending from previous admission Status: Chronic (4) Pleural effusion Assessment and Plan: chronic, stable, has had throacentesis in the past no respiratory distress f/u CXR report Status: Chronic (5) Type 2 diabetes mellitus Assessment and Plan: -stable -c/w home meds: Glucotrol 15 mg PO ACB/Glucotrol 10mg PO ACD Status: Chronic (6) DVT prophylaxis Assessment and Plan: heparin and scds Status: Acute
--- NOTE | 2017-06-13 07:55 | RAD ---
HISTORY: edema COMPARISON: Chest radiographs 06/08/2017. FINDINGS: LUNGS: A large left pleural effusions identified once again which is likely increased in volume slightly with underlying airspace disease not excluded. Limited medial basilar atelectasis is diminished at the right base. No right pleural effusion. No pneumothorax bilaterally. Poor vascularity is normal. Cardiac size is obscured by left pleural effusion. OSSEOUS STRUCTURES: No significant abnormalities. VISUALIZED UPPER ABDOMEN: Normal. OTHER FINDINGS: None. IMPRESSION: Mild increase in large left pleural effusion with underlying airspace disease not excluded the left base. Diminishing medial basilar airspace disease at the right.
[2017-06-13] MEDS: NIFEdipine 60 mg ER Tab PO SCH ×2 (08:32→21:30)
[2017-06-13] MEDS: Lidocaine 5% Patch TD SCH (08:37)
[2017-06-13] MEDS ORDERED: Metoprolol Succinate 25 mg XL Tab PO SCH (09:00)
[2017-06-13] MEDS ORDERED: Lidocaine 1% Inj (20ml) ONE (13:25)
--- NOTE | 2017-06-13 13:41 | PCM.SURG1 ---
Surgeon's Initial Post Op Note - Surgeon's Notes Surgeon: Antonio Rebolledo MD Shuttlecock Assembler: NONE Type of Anesthesia: Local Pre-Operative Diagnosis: Left pleural effusion Operative Findings: US showed a large left pleural effusion Post-Operative Diagnosis: Left pleural effusion Operation Performed: US guided left thoracentesis Specimen/Specimens Removed: 1.6 liters Estimated Blood Loss: EBL {In ML}: 0 Blood Products Given: N/A Drains Used: No Drains Post-Op Condition: Good Date of Surgery/Procedure: 06/13/17 Time of Surgery/Procedure: 13:35
[2017-06-13 14:15] LABS: BODY FLUID TYPE PLEURAL/THORACENTESI
[2017-06-13 14:25] LABS: LDH,BODY FLUID 319 IU (NONE ESTABLISHED)
--- NOTE | 2017-06-13 15:22 | RAD ---
PROCEDURE: CHEST RADIOGRAPH, 1 VIEW HISTORY: Status post left thoracentesis Relevant interventional procedure(s): June 13, 2017. Thoracentesis. COMPARISON: June 12, 2017. FINDINGS: LUNGS: Improved aeration of the lingula and left lower lobe. Evolving right lower lobe infiltrate. PLEURA: Post thoracentesis: Substantial decrease in left pleural effusion. No pneumothorax CARDIOVASCULAR: No radiographic findings to suggest acute or significant cardiovascular disease. OSSEOUS STRUCTURES: No significant abnormalities. VISUALIZED UPPER ABDOMEN: Normal. OTHER FINDINGS: None. IMPRESSION: No adverse findings following left thoracentesis. Qualitatively, decrease in left pleural effusion and improved aeration of the left lung.
[2017-06-13 16:01] LABS: BF GROSS APPEARANCE CLOUDY (CLEAR)
[2017-06-13 16:44] LABS: BODY FLUID TOTAL COUNT 100 (0-0)
--- NOTE | 2017-06-13 18:27 | CARD ---
APPROVED REPORT EKG Measurement Heart [id number] <Conclusion> Sinus rhythm with 1st degree AV block Possible Left atrial enlargement Borderline ECG
--- NOTE | 2017-06-13 19:03 | CP.PCM.CON ---
Past Patient History - Infectious Disease Hx of Infectious Diseases: None - Tetanus Immunizations Tetanus Immunization: Unknown - Past Medical History & Family History Past Medical History?: Yes - Past Social History Smoking Status: Light Smoker < 10 Cigarettes Daily - CARDIAC Hx Congestive Heart Failure: Yes Hx Hypercholesterolemia: No Hx Hypertension: Yes Hx Peripheral Edema: Yes - PULMONARY Hx Chronic Obstructive Pulmonary Disease (COPD): No Hx Pneumonia: Yes - NEUROLOGICAL Hx Dementia: No - HEENT Hx HEENT Problems: No - RENAL Hx Chronic Kidney Disease: Yes - ENDOCRINE/METABOLIC Hx Hypothyroidism: No - HEMATOLOGICAL/ONCOLOGICAL Hx Anemia: Yes Hx Human Immunodeficiency Virus (HIV): No - INTEGUMENTARY Hx Dermatological Problems: No - MUSCULOSKELETAL/RHEUMATOLOGICAL Hx Arthritis: No Hx Rheumatoid Arthritis: No - GASTROINTESTINAL Hx Gastrointestinal Disorders: No - GENITOURINARY/GYNECOLOGICAL Hx Genitourinary Disorders: No - PSYCHIATRIC Hx Anxiety: Yes Hx Bipolar Disorder: Yes Hx Depression: Yes - SURGICAL HISTORY Hx Surgeries: No - ANESTHESIA Hx Anesthesia: Yes Hx Anesthesia Reactions: No Hx Malignant Hyperthermia: No Meds Allergies/Adverse Reactions: Allergies Allergy/AdvReac Type Severity Reaction Status Date / Time No Known Allergies Allergy Verified 05/21/17 16:02 - Medications Medications: Current Medications Acetaminophen (Tylenol 325mg Tab) 650 mg PO Q6 PRN PRN Reason: Pain, Mild (1-3) Aspirin (Ecotrin) 81 mg PO DAILY [facility] Last Admin: 06/13/17 08:33 Dose: 81 mg Atorvastatin Calcium (Lipitor) 40 mg PO DAILY [facility] Last Admin: 06/13/17 08:39 Dose: 40 mg Calcium Acetate (Phoslo) 1,334 mg PO WM [facility] Last Admin: 06/13/17 18:04 Dose: 1,334 mg Carvedilol (Coreg) 25 mg PO Q12 [facility] Last Admin: 06/13/17 08:34 Dose: 25 mg Clopidogrel Bisulfate (Plavix) 75 mg PO DAILY [facility] Last Admin: 06/13/17 08:41 Dose: 75 mg Cyanocobalamin (Vitamin B12 1000 Mcg Tab) 1,000 mcg PO DAILY [facility] Last Admin: 06/13/17 08:45 Dose: 1,000 mcg Epoetin Roel (Procrit) 10,000 unit SC TTS [facility] Ergocalciferol (Drisdol 50,000 Intl Units Cap) 1 cap PO Q7D@2100 [facility] Last Admin: 06/12/17 21:39 Dose: 1 cap Ferrous Sulfate (Feosol) 325 mg PO BID [facility] Last Admin: 06/13/17 16:34 Dose: 325 mg Furosemide (Lasix) 20 mg PO QPM [facility] Last Admin: 06/13/17 18:04 Dose: 20 mg Furosemide (Lasix) 40 mg PO DAILY [facility] Last Admin: 06/13/17 08:37 Dose: 40 mg Gabapentin (Neurontin) 100 mg PO BID [facility] Last Admin: 06/13/17 16:34 Dose: 100 mg Glipizide (Glucotrol) 10 mg PO ACD [facility] Last Admin: 06/13/17 16:31 Dose: 10 mg Glipizide (Glucotrol) 15 mg PO ACB [facility] Last Admin: 06/13/17 07:40 Dose: 15 mg Heparin Sodium (Porcine) (Heparin) 5,000 units SC Q12 [facility] PRN Reason: Protocol Last Admin: 06/13/17 08:37 Dose: 5,000 units Lidocaine (Lidoderm) 1 ea TD DAILY [facility] Last Admin: 06/13/17 08:37 Dose: 1 ea Metoprolol Tartrate (Lopressor) 5 mg IVP Q6 PRN PRN Reason: Systolic Blood Pressure Mirtazapine (Remeron) 30 mg PO HS [facility] Last Admin: 06/12/17 21:37 Dose: 30 mg Nifedipine (Procardia Xl) 60 mg PO Q12H [facility] Last Admin: 06/13/17 08:32 Dose: 60 mg Risperidone (Risperdal Tab) 3 mg PO HS [facility] Last Admin: 06/12/17 21:40 Dose: 3 mg Tramadol HCl (Ultram) 50 mg PO Q6 PRN PRN Reason: Pain, moderate (4-7) Last Admin: 06/13/17 14:29 Dose: 50 mg Results - Vital Signs Recent Vital Signs: Last Vital Signs Temp 98.4 F 06/13/17 18:54 Pulse 65 06/13/17 18:54 Resp 20 06/13/17 18:54 BP 124/50 L 06/13/17 18:54 Pulse Ox 96 06/13/17 18:54 - Labs Result Diagrams: 06/14/17 05:30 06/14/17 05:30 Labs: Laboratory Results - last 24 hr 06/12/17 06/12/17 06/12/17 19:44 19:44 19:44 WBC 6.9 RBC 2.97 L Hgb 9.0 L Hct 28.0 L MCV 94.4 H MCH 30.3 MCHC 32.1 L RDW 15.7 H Plt Count 291 MPV 10.1 Neut % (Auto) 70.9 Lymph % (Auto) 18.[address] [place] % (Auto) 7.3 Eos % (Auto) 2.3 Baso % (Auto) 1.3 Neut # 4.9 Lymph # 1.3 [place] # 0.5 Eos # 0.2 Baso # 0.1 PT 12.0 INR 1.1 APTT 35.7 Sodium 146 Potassium 4.8 Chloride 118 H Carbon Dioxide 20 L Anion Gap 13 BUN 72 H Creatinine 2.1 H Est GFR ( Amer) 38 Est GFR (Non-Af Amer) 32 POC Glucose (mg/dL) Random Glucose 142 H Calcium 8.2 L Total Bilirubin 0.2 AST 54 ALT 93 H Alkaline Phosphatase 249 H Lactate Dehydrogenase Troponin I 0.0140 NT-Pro-B Natriuret Pep 1450 H Total Protein 6.1 L Albumin 3.0 L Globulin 3.1 Albumin/Globulin Ratio 1.0 Fluid Source Fluid Appearance Fluid WBC Fluid RBC Fluid Tot Cell Count Fluid Neutrophils Fluid Lymphocytes Fld Monocyte/Macrophag Fluid LDH Fluid Comment 06/12/17 06/13/17 06/13/17 21:50 00:49 06:12 WBC RBC Hgb Hct MCV MCH MCHC RDW Plt Count MPV Neut % (Auto) Lymph % (Auto) [place] % (Auto) Eos % (Auto) Baso % (Auto) Neut # Lymph # [place] # Eos # Baso # PT INR APTT Sodium Potassium Chloride Carbon Dioxide Anion Gap BUN Creatinine Est GFR ( Amer) Est GFR (Non-Af Amer) POC Glucose (mg/dL) 206 H 136 H 123 H Random Glucose Calcium Total Bilirubin AST ALT Alkaline Phosphatase Lactate Dehydrogenase Troponin I NT-Pro-B Natriuret Pep Total Protein Albumin Globulin Albumin/Globulin Ratio Fluid Source Fluid Appearance Fluid WBC Fluid RBC Fluid Tot Cell Count Fluid Neutrophils Fluid Lymphocytes Fld Monocyte/Macrophag Fluid LDH Fluid Comment 06/13/17 06/13/17 06/13/17 06:50 06:50 11:14 WBC 5.2 RBC 2.72 L Hgb 8.4 L Hct 25.7 L MCV 94.4 H MCH 30.7 MCHC 32.5 L RDW 15.2 H Plt Count 236 MPV Neut % (Auto) Lymph % (Auto) [place] % (Auto) Eos % (Auto) Baso % (Auto) Neut # Lymph # [place] # Eos # Baso # PT INR APTT Sodium 148 Potassium 4.2 Chloride 118 H Carbon Dioxide 22 Anion Gap 12 BUN 62 H Creatinine 2.1 H Est GFR ( Amer) 38 Est GFR (Non-Af Amer) 32 POC Glucose (mg/dL) 245 H Random Glucose 120 H Calcium 7.9 L Total Bilirubin 0.1 L AST 31 ALT 72 D Alkaline Phosphatase 214 H Lactate Dehydrogenase Troponin I NT-Pro-B Natriuret Pep Total Protein 5.2 L Albumin 2.4 L Globulin 2.7 Albumin/Globulin Ratio 0.9 L Fluid Source Fluid Appearance Fluid WBC Fluid RBC Fluid Tot Cell Count Fluid Neutrophils Fluid Lymphocytes Fld Monocyte/Macrophag Fluid LDH Fluid Comment 06/13/17 06/13/17 06/13/17 12:27 14:00 14:00 WBC RBC Hgb Hct MCV MCH MCHC RDW Plt Count MPV Neut % (Auto) Lymph % (Auto) [place] % (Auto) Eos % (Auto) Baso % (Auto) Neut # Lymph # [place] # Eos # Baso # PT INR APTT Sodium Potassium Chloride Carbon Dioxide Anion Gap BUN Creatinine Est GFR ( Amer) Est GFR (Non-Af Amer) POC Glucose (mg/dL) Random Glucose Calcium Total Bilirubin AST ALT Alkaline Phosphatase Lactate Dehydrogenase 548 Troponin I NT-Pro-B Natriuret Pep Total Protein Albumin Globulin Albumin/Globulin Ratio Fluid Source Pleural/thoracentesi Fluid Appearance Cloudy Fluid WBC 44.0 Fluid RBC 3.0 H Fluid Tot Cell Count 100 H Fluid Neutrophils 32.0 H Fluid Lymphocytes 52.0 H Fld Monocyte/Macrophag 16 H Fluid LDH 319 Fluid Comment None 06/13/17 17:26 WBC RBC Hgb Hct MCV MCH MCHC RDW Plt Count MPV Neut % (Auto) Lymph % (Auto) [place] % (Auto) Eos % (Auto) Baso % (Auto) Neut # Lymph # [place] # Eos # Baso # PT INR APTT Sodium Potassium Chloride Carbon Dioxide Anion Gap BUN Creatinine Est GFR ( Amer) Est GFR (Non-Af Amer) POC Glucose (mg/dL) 176 H Random Glucose Calcium Total Bilirubin AST ALT Alkaline Phosphatase Lactate Dehydrogenase Troponin I NT-Pro-B Natriuret Pep Total Protein Albumin Globulin Albumin/Globulin Ratio Fluid Source Fluid Appearance Fluid WBC Fluid RBC Fluid Tot Cell Count Fluid Neutrophils Fluid Lymphocytes Fld Monocyte/Macrophag Fluid LDH Fluid Comment Assessment & Plan (1) Hypertensive CKD (chronic kidney disease) Assessment and Plan: BP markedly elevated on presentation but controlled after restarting the meds patient was taking during recent admission; unfortunately, as patient is unable to procure meds as outpatient, we do not have a extermination inspector solution for treating his htn; will discuss with patient; for now, continue current meds; Status: Acute (2) Chronic kidney disease, stage 3 (moderate) Assessment and Plan: Secondary to diabetic nephropathy; relatively stable renal function but with poor prognosis in the setting of nephrotic syndrome; will hold off on KEVIN blockade due to hyperkalemia and uncertain patient adherence to meds; Status: Chronic (3) Anemia of renal disease Assessment and Plan: Hgb below goal, will continue EPO 10,000 qTTS; Status: Acute (4) Chronic kidney disease-mineral and bone disorder Assessment and Plan: Secondary hyperparathyroidism; continue ergocalciferol 50,000 u weekly and phoslo 2 tabs w/ meals; Status: Chronic (5) Nephrotic syndrome Status: Acute Priority: High (6) Pleural effusion Assessment and Plan: Recurrent L pleural effusion s/p thoracentesis with 1.6 L removed today; continue diuretics to prevent recurrence; Status: Chronic
[2017-06-14 07:00] LABS: HEMATOCRIT 25.1 % (35.0-51.0); MEAN CORPUSCULAR HEMOGLOBIN 31.9 pg (27.0-31.0); MEAN CORPUSCULAR HGB CONC 34.3 g/dL (33.0-37.0); RED CELL DISTRIBUTION WIDTH 15.2 % (11.5-14.5); WHITE BLOOD COUNT 5.5 K/uL (4.8-10.8)
[2017-06-14 07:57] LABS: ALB/GLOB RATIO 0.9 (1.0-2.1); BILIRUBIN,TOTAL 0.2 mg/dl (0.2-1.3); CALCIUM 7.8 mg/dL (8.4-10.2); POTASSIUM 4.5 MMOL/L (3.6-5.0); TOTAL PROTEIN 5.1 G/DL (6.3-8.2)
[2017-06-14] MEDS ORDERED: EPOETIN ALFA 10,000 UNIT/ML ML SC SCH (09:00)
[2017-06-14] MEDS: Lidocaine 5% Patch TD SCH (09:02)
[2017-06-14] MEDS: NIFEdipine 60 mg ER Tab PO SCH ×2 (09:06→20:59)
[2017-06-14] MEDS ORDERED: guaiFENesin-DM 600-30 mg ER Tab PO SCH (10:00)
[2017-06-14] MEDS: guaiFENesin-DM 600-30 mg ER Tab PO SCH ×2 (10:09→17:17)
--- NOTE | 2017-06-14 10:33 | CP.PCM.PN ---
Subjective - Date & Time of Evaluation Date of Evaluation: 06/14/17 Time of Evaluation: 10:31 - Subjective Subjective: 66 YO M was seen at bedside resting comfortably. States he slept ok but has been having this cough all night which is productive with whitish colored sputum. Denies any episodes of diarrhea. Denies chills, nausea vomiting. However states he feels a little cold. Has remained afebrile overnight. - Patient had a large left sided effusion drained yesterday 1.5 L was drained from the left lung. Objective - Vital Signs/Intake and Output Vital Signs (last 24 hours): Temp Pulse Resp BP Pulse Ox 97.8 F 53 L 20 135/63 95 06/14/17 08:10 06/14/17 09:07 06/14/17 08:10 06/14/17 09:08 06/14/17 08:10 - Medications Medications: Current Medications Acetaminophen (Tylenol 325mg Tab) 650 mg PO Q6 PRN PRN Reason: Pain, Mild (1-3) Aspirin (Ecotrin) 81 mg PO DAILY [facility] Last Admin: 06/14/17 09:05 Dose: 81 mg Atorvastatin Calcium (Lipitor) 40 mg PO DAILY [facility] Last Admin: 06/14/17 09:09 Dose: 40 mg Calcium Acetate (Phoslo) 1,334 mg PO WM [facility] Last Admin: 06/14/17 08:00 Dose: 1,334 mg Carvedilol (Coreg) 25 mg PO Q12 [facility] Last Admin: 06/14/17 09:07 Dose: Not Given Clopidogrel Bisulfate (Plavix) 75 mg PO DAILY [facility] Last Admin: 06/14/17 09:06 Dose: 75 mg Cyanocobalamin (Vitamin B12 1000 Mcg Tab) 1,000 mcg PO DAILY [facility] Last Admin: 06/13/17 08:45 Dose: 1,000 mcg Epoetin Roel (Procrit) 10,000 unit SC TTS [facility] Last Admin: 06/14/17 09:02 Dose: 10,000 unit Ergocalciferol (Drisdol 50,000 Intl Units Cap) 1 cap PO Q7D@2100 [facility] Last Admin: 06/12/17 21:39 Dose: 1 cap Ferrous Sulfate (Feosol) 325 mg PO BID [facility] Last Admin: 06/14/17 09:05 Dose: 325 mg Furosemide (Lasix) 20 mg PO QPM [facility] Last Admin: 06/13/17 18:04 Dose: 20 mg Furosemide (Lasix) 40 mg PO DAILY [facility] Last Admin: 06/14/17 09:08 Dose: 40 mg Gabapentin (Neurontin) 100 mg PO BID [facility] Last Admin: 06/14/17 09:04 Dose: 100 mg Glipizide (Glucotrol) 10 mg PO ACD [facility] Last Admin: 06/13/17 16:31 Dose: 10 mg Glipizide (Glucotrol) 15 mg PO ACB [facility] Last Admin: 06/14/17 07:45 Dose: 15 mg Guaifenesin/Dextromethorphan (Mucinex-Dm 600-30 Mg) 1 tab PO BID [facility] Heparin Sodium (Porcine) (Heparin) 5,000 units SC Q12 [facility] PRN Reason: Protocol Last Admin: 06/14/17 09:08 Dose: 5,000 units Lidocaine (Lidoderm) 1 ea TD DAILY [facility] Last Admin: 06/14/17 09:02 Dose: 1 ea Mirtazapine (Remeron) 30 mg PO HS [facility] Last Admin: 06/13/17 21:54 Dose: 30 mg Nifedipine (Procardia Xl) 60 mg PO Q12H [facility] Last Admin: 06/14/17 09:06 Dose: Not Given Risperidone (Risperdal Tab) 3 mg PO HS [facility] Last Admin: 06/13/17 21:54 Dose: 3 mg Tramadol HCl (Ultram) 50 mg PO Q6 PRN PRN Reason: Pain, moderate (4-7) Last Admin: 06/13/17 14:29 Dose: 50 mg - Labs Labs: 06/14/17 05:30 06/14/17 05:30 PT 12.0 Seconds (9.8-13.1) 06/12/17 19:44 INR 1.1 (0.9-1.2) 06/12/17 19:44 APTT 35.7 Seconds (25.6-37.1) 06/12/17 19:44 - Constitutional Appears: No Acute Distress - Head Exam Head Exam: NORMAL INSPECTION - Respiratory Exam Respiratory Exam: Rhonchi, NORMAL BREATHING PATTERN. absent: Accessory Muscle Use, Respiratory Distress - Cardiovascular Exam Cardiovascular Exam: REGULAR RHYTHM, +S1, +S2 - Extremities Exam Additional comments: 1+ pittting edema b/l - Neurological Exam Neurological Exam: Alert, Awake, CN II-XII Intact, Oriented x3 - Skin Skin Exam: Normal Color, Warm Assessment and Plan - Assessment and Plan (Free Text) Assessment: (1) hypertension ( Currently controlled with meds Assessment and Plan: HTN Medications: - Nefedapine ER ( Procardia) 60 PO Q12 - Coreg (Carvedilol) 25 mg q12 - [place] has been D/C because of rebound hypertension, and patients poor compliance to taking medication while outpatient. - Will follow nephro recommendations Status: Acute (2) URI w/ cough - Muccinex - Duoneb thomas (3) Anemia Assessment and Plan: stable, had transfusion last admission Hb: 8.6 anemia of chronic disease/iron deficiency on feosol, procrit Status: Chronic (4) Chronic kidney disease, stage III (moderate) Assessment and Plan: secondary to diabetic nephropathy, with associated nephrotic syndrome renal function is stable renal biopsy is pending from previous admission Status: Chronic (5) Pleural effusion Assessment and Plan: - Patient had thoracocentesis: 1.5 Liters removed from left lung yesterday by intentional radiology - F/U with plural fluid cultures - Status: Chronic (6) Type 2 diabetes mellitus Assessment and Plan: -stable -c/w home meds: Glucotrol 15 mg PO ACB/Glucotrol 10mg PO ACD Status: Chronic (7) DVT prophylaxis Assessment and Plan: heparin and scds Status: Acute
[2017-06-14] MEDS: Albuterol-Ipratrop 3 mg / 0.5 (3 ml) UD INH SCH ×2 (13:36→19:07)
--- NOTE | 2017-06-14 19:17 | CP.PCM.PN ---
Subjective - Date & Time of Evaluation Date of Evaluation: 06/14/17 Time of Evaluation: 14:00 - Subjective Subjective: Patient reports feeling better since thoracentesis yesterday, breathing and cough improved; Objective - Vital Signs/Intake and Output Vital Signs (last 24 hours): Temp Pulse Resp BP Pulse Ox 99.0 F 69 20 169/66 H 91 L 06/14/17 16:14 06/14/17 16:14 06/14/17 16:14 06/14/17 17:17 06/14/17 16:14 - Medications Medications: Current Medications Acetaminophen (Tylenol 325mg Tab) 650 mg PO Q6 PRN PRN Reason: Pain, Mild (1-3) Albuterol/Ipratropium (Duoneb 3 Mg/0.5 Mg (3 Ml) Ud) 3 ml INH RQ6 [facility] Last Admin: 06/14/17 19:07 Dose: 3 ml Aspirin (Ecotrin) 81 mg PO DAILY [facility] Last Admin: 06/14/17 09:05 Dose: 81 mg Atorvastatin Calcium (Lipitor) 40 mg PO DAILY [facility] Last Admin: 06/14/17 09:09 Dose: 40 mg Calcium Acetate (Phoslo) 1,334 mg PO WM [facility] Last Admin: 06/14/17 12:10 Dose: 1,334 mg Carvedilol (Coreg) 25 mg PO Q12 [facility] Last Admin: 06/14/17 09:07 Dose: Not Given Clopidogrel Bisulfate (Plavix) 75 mg PO DAILY [facility] Last Admin: 06/14/17 09:06 Dose: 75 mg Cyanocobalamin (Vitamin B12 1000 Mcg Tab) 1,000 mcg PO DAILY [facility] Last Admin: 06/14/17 09:00 Dose: 1,000 mcg Epoetin Roel (Procrit) 10,000 unit SC TTS [facility] Last Admin: 06/14/17 09:02 Dose: 10,000 unit Ergocalciferol (Drisdol 50,000 Intl Units Cap) 1 cap PO Q7D@2100 [facility] Last Admin: 06/12/17 21:39 Dose: 1 cap Ferrous Sulfate (Feosol) 325 mg PO BID [facility] Last Admin: 06/14/17 17:19 Dose: 325 mg Furosemide (Lasix) 20 mg PO QPM [facility] Last Admin: 06/14/17 17:17 Dose: 20 mg Furosemide (Lasix) 40 mg PO DAILY [facility] Last Admin: 06/14/17 09:08 Dose: 40 mg Gabapentin (Neurontin) 100 mg PO BID [facility] Last Admin: 06/14/17 17:19 Dose: 100 mg Glipizide (Glucotrol) 10 mg PO ACD [facility] Last Admin: 06/14/17 17:18 Dose: 10 mg Glipizide (Glucotrol) 15 mg PO ACB [facility] Last Admin: 06/14/17 07:45 Dose: 15 mg Guaifenesin/Dextromethorphan (Mucinex-Dm 600-30 Mg) 1 tab PO BID [facility] Last Admin: 06/14/17 17:17 Dose: 1 tab Heparin Sodium (Porcine) (Heparin) 5,000 units SC Q12 [facility] PRN Reason: Protocol Last Admin: 06/14/17 09:08 Dose: 5,000 units Lidocaine (Lidoderm) 1 ea TD DAILY [facility] Last Admin: 06/14/17 09:02 Dose: 1 ea Mirtazapine (Remeron) 30 mg PO HS [facility] Last Admin: 06/13/17 21:54 Dose: 30 mg Nifedipine (Procardia Xl) 60 mg PO Q12H [facility] Last Admin: 06/14/17 09:06 Dose: Not Given Risperidone (Risperdal Tab) 3 mg PO HS [facility] Last Admin: 06/13/17 21:54 Dose: 3 mg Tramadol HCl (Ultram) 50 mg PO Q6 PRN PRN Reason: Pain, moderate (4-7) Last Admin: 06/13/17 14:29 Dose: 50 mg - Labs Labs: 06/14/17 05:30 06/14/17 05:30 PT 12.0 Seconds (9.8-13.1) 06/12/17 19:44 INR 1.1 (0.9-1.2) 06/12/17 19:44 APTT 35.7 Seconds (25.6-37.1) 06/12/17 19:44 - Constitutional Appears: Non-toxic, No Acute Distress - Eye Exam Eye Exam: Normal appearance - ENT Exam ENT Exam: Mucous Membranes Moist - Respiratory Exam Respiratory Exam: absent: Respiratory Distress Additional comments: mild L basal rales; - Cardiovascular Exam Cardiovascular Exam: RRR, +S1, +S2 - GI/Abdominal Exam GI & Abdominal Exam: Soft. absent: Distended, Tenderness - Extremities Exam Additional comments: moderately edematous legs; - Neurological Exam Neurological Exam: Alert, Awake - Psychiatric Exam Psychiatric exam: Normal Affect, Normal Mood - Skin Skin Exam: Warm. absent: Cyanosis Assessment and Plan (1) Hypertensive CKD (chronic kidney disease) Assessment & Plan: BP controlled; continue current meds; Status: Acute (2) Chronic kidney disease, stage 3 (moderate) Assessment & Plan: Stable renal function; need to monitor closely as outpatient; Status: Chronic (3) Anemia of renal disease Assessment & Plan: Hgb below goal, continue EPO 10,000 u q48h; Status: Acute (4) Chronic kidney disease-mineral and bone disorder Assessment & Plan: Phos elevated; continue phoslo 2 tabs tid w/ meals; continue ergocalciferol 50, 000 u weekly for secondary hyperparathryoidism; Status: Chronic (5) Nephrotic syndrome Assessment & Plan: Secondary to DM nephropathy with no involvement of monoclonal gammopathy per renal biopsy; not on KEVIN blockade due to hyperkalemia issues and patient not expected to comply regularly with kayexalate; need to keep BP < 130/80 correction ; Status: Acute (6) Pleural effusion Assessment & Plan: Recurrent L pleural effusion; fluid analysis consistent with transudate; continue bid dosing of lasix; Status: Chronic - Assessment and Plan (Free Text) Assessment: Overall poor prognosis in this homeless patient who doesn't have regular ability to acquire meds; will continue to encourage to f/u in clinic;
[2017-06-15] MEDS: Albuterol-Ipratrop 3 mg / 0.5 (3 ml) UD INH SCH ×3 (01:27→13:14)
[2017-06-15] MEDS: guaiFENesin-DM 600-30 mg ER Tab PO SCH ×2 (08:47→16:08)
[2017-06-15] MEDS: NIFEdipine 60 mg ER Tab PO SCH (08:48)
[2017-06-15] MEDS: Lidocaine 5% Patch TD SCH (08:49)
--- NOTE | 2017-06-15 10:54 | CP.PCM.DIS ---
Provider - Provider Date of Admission: 06/13/17 16:11 Attending physician: Elizabeth Kelley MD Time Spent in preparation of Discharge (in minutes): 30 Hospital Course - Lab Results Lab Results: Micro Results 06/13/17 14:00 Other: Please Indicate Mycobacterial Culture - Preliminary 06/13/17 14:00 Body Fluid - Pleural Fluid Gram Stain - Final 06/13/17 14:00 Body Fluid - Pleural Fluid Body Fluid Culture - Preliminary NO GROWTH AFTER 24 HOURS 06/12/17 07:19 Naris MRSA Culture (Admit) - Final MRSA NOT DETECTED Most Recent Lab Values WBC 5.5 K/uL (4.8-10.8) 06/14/17 05:30 RBC 2.70 Mil/uL (4.40-5.90) L 06/14/17 05:30 Hgb 8.6 g/dL (12.0-18.0) L 06/14/17 05:30 Hct 25.1 % (35.0-51.0) L 06/14/17 05:30 MCV 93.0 fl (80.0-94.0) 06/14/17 05:30 MCH 31.9 pg (27.0-31.0) H 06/14/17 05:30 MCHC 34.3 g/dL (33.0-37.0) 06/14/17 05:30 RDW 15.2 % (11.5-14.5) H 06/14/17 05:30 Plt Count 255 K/uL (130-400) 06/14/17 05:30 MPV 10.1 fl (7.2-11.7) 06/12/17 19:44 Neut % (Auto) 70.9 % (50.0-75.0) 06/12/17 19:44 Lymph % (Auto) 18.2 % (20.0-40.0) L 06/12/17 19:44 [place] % (Auto) 7.3 % (0.0-10.0) 06/12/17 19:44 Eos % (Auto) 2.3 % (0.0-4.0) 06/12/17 19:44 Baso % (Auto) 1.3 % (0.0-2.0) 06/12/17 19:44 Neut # 4.9 K/uL (1.8-7.0) 06/12/17 19:44 Lymph # 1.3 K/uL (1.0-4.3) 06/12/17 19:44 [place] # 0.5 K/uL (0.0-0.8) 06/12/17 19:44 Eos # 0.2 K/uL (0.0-0.7) 06/12/17 19:44 Baso # 0.1 K/uL (0.0-0.2) 06/12/17 19:44 PT 12.0 Seconds (9.8-13.1) 06/12/17 19:44 INR 1.1 (0.9-1.2) 06/12/17 19:44 APTT 35.7 Seconds (25.6-37.1) 06/12/17 19:44 Sodium 144 mmol/l (132-148) 06/14/17 05:30 Potassium 4.5 MMOL/L (3.6-5.0) 06/14/17 05:30 Chloride 117 mmol/L (98-107) H 06/14/17 05:30 Carbon Dioxide 22 mmol/L (22-30) 06/14/17 05:30 Anion Gap 10 (10-20) 06/14/17 05:30 BUN 65 mg/dl (9-20) H 06/14/17 05:30 Creatinine 2.2 mg/dl (0.8-1.5) H 06/14/17 05:30 Est GFR ( Amer) 36 06/14/17 05:30 Est GFR (Non-Af Amer) 30 06/14/17 05:30 POC Glucose (mg/dL) 75 mg/dL (65-110) 06/15/17 05:55 Random Glucose 118 mg/dL (75-110) H 06/14/17 05:30 Calcium 7.8 mg/dL (8.4-10.2) L 06/14/17 05:30 Total Bilirubin 0.2 mg/dl (0.2-1.3) 06/14/17 05:30 AST 21 U/L (17-59) 06/14/17 05:30 ALT 56 U/L (21-72) 06/14/17 05:30 Alkaline Phosphatase 176 U/L (38-126) H 06/14/17 05:30 Lactate Dehydrogenase 548 U/L (313-618) 06/13/17 12:27 Troponin I 0.0140 ng/mL (0.00-0.120) 06/12/17 19:44 NT-Pro-B Natriuret Pep 1450 pg/ml (0-900) H 06/12/17 19:44 Total Protein 5.1 G/DL (6.3-8.2) L 06/14/17 05:30 Albumin 2.4 g/dL (3.5-5.0) L 06/14/17 05:30 Globulin 2.8 gm/dL (2.2-3.9) 06/14/17 05:30 Albumin/Globulin Ratio 0.9 (1.0-2.1) L 06/14/17 05:30 Fluid Source Pleural/thoracentesi 06/13/17 14:00 Fluid Appearance Cloudy (CLEAR) 06/13/17 14:00 Fluid WBC 44.0 /mm3 (0.0-300.0) 06/13/17 14:00 Fluid RBC 3.0 /mm3 (0.0-0.0) H 06/13/17 14:00 Fluid Tot Cell Count 100 (0-0) H 06/13/17 14:00 Fluid Neutrophils 32.0 % (0-0) H 06/13/17 14:00 Fluid Lymphocytes 52.0 % (0-0) H 06/13/17 14:00 Fld Monocyte/Macrophag 16 % (0-0) H 06/13/17 14:00 Fluid Total Protein < 2.0 g/dL (NONE ESTABLISHED) 06/13/17 14:00 Fluid LDH 319 IU (NONE ESTABLISHED) 06/13/17 14:00 Fluid Comment None 06/13/17 14:00 - Hospital Course Hospital Course: 66 year old male with PMH of HTN, CKD, NIDDM2, chronic left sided pleural effusion, nephrotic syndrome, and anemia, presented with complaints of multiple bowel movements. Patient was DCd recently s/p thoracocentesis for chronic pleural effusion. BP was noted to be elevated. Patient's BP list was optimized, clonidine was DC' d during this admission. Nephrology was consulted for recommendations. See reconciled home medication list below. Stable to DC home today. Denies cp, f/c/nv/FOSS/ SOB/abd pain/focal weakness. Patient was urged to comply with treatment regimen as directed, urged to follow up in clinic as directed. Explained consequences of poor follow up of chrinic conditions. Verbalizes understanding but is upset upon leaving as he is homeless. Discharge Exam - Head Exam Head Exam: NORMAL INSPECTION - Eye Exam Eye Exam: EOMI - ENT Exam ENT Exam: Mucous Membranes Moist - Respiratory Exam Respiratory Exam: Clear to PA & Lateral - Cardiovascular Exam Cardiovascular Exam: +S1, +S2 - GI/Abdominal Exam GI & Abdominal Exam: Normal Bowel Sounds, Soft. absent: Distended, Firm, Guarding, Rigid, Tenderness - Extremities Exam Extremities exam: normal inspection - Neurological Exam Neurological exam: Alert, Oriented x3 - Psychiatric Exam Psychiatric exam: Normal Affect, Normal Mood - Skin Skin Exam: Dry, Normal Color, Warm Discharge Plan - Discharge Medications Prescriptions: Aspirin [Ecotrin] 81 mg PO DAILY #30 tabec Atorvastatin [Lipitor] 40 mg PO DAILY #30 tab Calcium Acetate [Phoslo] 1,334 mg PO WM #180 capsule Carvedilol [Coreg] 25 mg PO Q12 30 Days #60 tab Clopidogrel [Plavix] 75 mg PO DAILY 30 Days #30 tab Cyanocobalamin [Vitamin B12 1000 mcg Tab] 1,000 mcg PO DAILY 30 Days #30 tab Epoetin Roel [Procrit] 10,000 unit SC TTS 20 Days #30 ml Ergocalciferol [Drisdol 50,000 Intl Units Cap] 1 cap PO Q7D 30 Days #4 cap Ferrous Sulfate [Feosol] 325 mg PO BID 30 Days #60 tab Furosemide [Lasix] 40 mg PO DAILY 30 Days #30 tab Gabapentin [Neurontin] 100 mg PO BID #60 cap GlipiZIDE [Glucotrol] 15 mg PO ACB #90 tab Mirtazapine [Remeron] 30 mg PO HS #30 tab NIFEdipine ER [Procardia XL] 60 mg PO Q12H 30 Days #[address] ter risperiDONE [RisperDAL Tab] 3 mg PO HS #30 tab - Follow Up Plan Condition: STABLE Disposition: HOME/ ROUTINE Instructions: How to Check Your Blood Sugar (DC), Pleural Effusion (DC) Referrals: Black Martínez MD [Resident] -
[2017-06-15 11:04] VITALS: PULSE 67
--- NOTE | 2017-06-15 14:30 | CP.PCM.PN ---
Objective - Vital Signs/Intake and Output Vital Signs (last 24 hours): Temp Pulse Resp BP Pulse Ox 97.8 F 67 17 168/55 H 98 06/15/17 11:03 06/15/17 11:03 06/15/17 11:03 06/15/17 11:03 06/15/17 08:29 - Medications Medications: Current Medications Acetaminophen (Tylenol 325mg Tab) 650 mg PO Q6 PRN PRN Reason: Pain, Mild (1-3) Albuterol/Ipratropium (Duoneb 3 Mg/0.5 Mg (3 Ml) Ud) 3 ml INH RQ6 [facility] Last Admin: 06/15/17 13:14 Dose: 3 ml Aspirin (Ecotrin) 81 mg PO DAILY [facility] Last Admin: 06/15/17 08:48 Dose: 81 mg Atorvastatin Calcium (Lipitor) 40 mg PO DAILY [facility] Last Admin: 06/15/17 08:50 Dose: 40 mg Calcium Acetate (Phoslo) 1,334 mg PO WM [facility] Last Admin: 06/15/17 12:08 Dose: 1,334 mg Carvedilol (Coreg) 25 mg PO Q12 [facility] Last Admin: 06/15/17 08:48 Dose: 25 mg Clopidogrel Bisulfate (Plavix) 75 mg PO DAILY [facility] Last Admin: 06/15/17 08:50 Dose: 75 mg Cyanocobalamin (Vitamin B12 1000 Mcg Tab) 1,000 mcg PO DAILY [facility] Last Admin: 06/15/17 08:47 Dose: 1,000 mcg Epoetin Roel (Procrit) 10,000 unit SC TTS [facility] Last Admin: 06/14/17 09:02 Dose: 10,000 unit Ergocalciferol (Drisdol 50,000 Intl Units Cap) 1 cap PO Q7D@2100 [facility] Last Admin: 06/12/17 21:39 Dose: 1 cap Ferrous Sulfate (Feosol) 325 mg PO BID [facility] Last Admin: 06/15/17 08:47 Dose: 325 mg Furosemide (Lasix) 20 mg PO QPM [facility] Last Admin: 06/14/17 17:17 Dose: 20 mg Furosemide (Lasix) 40 mg PO DAILY [facility] Last Admin: 06/15/17 08:47 Dose: 40 mg Gabapentin (Neurontin) 100 mg PO BID [facility] Last Admin: 06/15/17 08:50 Dose: 100 mg Glipizide (Glucotrol) 10 mg PO ACD [facility] Last Admin: 06/14/17 17:18 Dose: 10 mg Glipizide (Glucotrol) 15 mg PO ACB [facility] Last Admin: 06/15/17 08:49 Dose: 15 mg Guaifenesin/Dextromethorphan (Mucinex-Dm 600-30 Mg) 1 tab PO BID [facility] Last Admin: 06/15/17 08:47 Dose: 1 tab Heparin Sodium (Porcine) (Heparin) 5,000 units SC Q12 [facility] PRN Reason: Protocol Last Admin: 06/15/17 08:56 Dose: Not Given Lidocaine (Lidoderm) 1 ea TD DAILY [facility] Last Admin: 06/15/17 08:49 Dose: 1 ea Mirtazapine (Remeron) 30 mg PO HS [facility] Last Admin: 06/14/17 21:00 Dose: 30 mg Nifedipine (Procardia Xl) 60 mg PO Q12H [facility] Last Admin: 06/15/17 08:48 Dose: 60 mg Risperidone (Risperdal Tab) 3 mg PO HS [facility] Last Admin: 06/14/17 21:00 Dose: 3 mg Tramadol HCl (Ultram) 50 mg PO Q6 PRN PRN Reason: Pain, moderate (4-7) Last Admin: 06/13/17 14:29 Dose: 50 mg - Labs Labs: 06/14/17 05:30 06/14/17 05:30 PT 12.0 Seconds (9.8-13.1) 06/12/17 19:44 INR 1.1 (0.9-1.2) 06/12/17 19:44 APTT 35.7 Seconds (25.6-37.1) 06/12/17 19:44 Assessment and Plan (1) Hypertensive CKD (chronic kidney disease) Status: Acute (2) Chronic kidney disease, stage 3 (moderate) Status: Chronic (3) Anemia of renal disease Status: Acute (4) Chronic kidney disease-mineral and bone disorder Status: Chronic (5) Nephrotic syndrome Status: Acute (6) Pleural effusion Status: Chronic
[2017-06-15 16:03] VITALS: BP 166/69; RESP 20; TEMP 98; O2SAT 95
--- NOTE | 2017-06-19 11:15 | US ---
PROCEDURE: Date of procedure: 06/13/2017 Procedure: 1. Ultrasound-guided left thoracentesis, CPT 69363 Medications: 6cc 1% Lidocaine HISTORY: Left pleural effusion, shortness of breath TECHNIQUE: Following informed consent ,the Patients' left chest was marked. Procedure time-out was called, and the patient was placed in the sitting position and limited ultrasound showed a large left effusion. The patient's left back was prepped and draped in the usual sterile fashion. After the skin was anesthetized with lidocaine, a drainage catheter was advanced under ultrasound guidance into the pleural space. Ultrasound-guided thoracentesis was performed. A total of 1800 cubic centimeters of straw-colored fluid removed without complication. A Xeroform dressing was applied. IMPRESSION: Ultrasound guided left thoracentesis. There were no immediate complications.
== END 2017-06-15 17:10 | disposition home or self-care (01) | DRG 127 ==
LOC: H.ER 18:24 → H.ERHOLD 20:27 → H.ICU/CCU 22:25 → OBSVTOIN 06-13 16:11 → H.MEDSURG1 06-13 19:10
PROVIDERS: ADMIT Family Medicine Geriatric Medicine; ATTEND Family Medicine Geriatric Medicine
PROC: 0W9B3ZZ Drainage of Left Pleural Cavity, Percutaneous Approach (ICD-10-PCS; principal; 2017-06-13)
DX: I13.0 Hypertensive heart and chronic kidney disease with heart failure and stage 1 through stage 4 chronic kidney disease, or unspecified chronic kidney disease (principal); J91.8 Pleural effusion in other conditions classified elsewhere; E11.21 Type 2 diabetes mellitus with diabetic nephropathy; N18.3 Chronic kidney disease, stage 3 (moderate); E11.22 Type 2 diabetes mellitus with diabetic chronic kidney disease; E87.5 Hyperkalemia; I50.9 Heart failure, unspecified; D63.1 Anemia in chronic kidney disease; F17.200 Nicotine dependence, unspecified, uncomplicated; J06.9 Acute upper respiratory infection, unspecified; N25.81 Secondary hyperparathyroidism of renal origin; Z59.0 Homelessness; Z91.14 Patient's other noncompliance with medication regimen; M89.9 Disorder of bone, unspecified

== ENCOUNTER 2017-06-22 19:47 | Inpatient (IN) | payer SELFPAY ==
[2017-06-22] MEDS ORDERED: Azithromycin 500 MG in Sodium Chloride 0.9% 250 ML IVPB STA (20:21)
[2017-06-22] MEDS ORDERED: cefTRIAXone IV 1 gm in Dextros 50 ML IVPB ONE (20:39)
[2017-06-22 20:44] LABS: BASO % 0.5 % (0.0-2.0); HEMOGLOBIN 10.7 g/dL (12.0-18.0); LYMPH # 0.6 K/uL (1.0-4.3); LYMPH % 9.7 % (20.0-40.0); MEAN CELL VOLUME 94.4 fl (80.0-94.0); MEAN CORPUSCULAR HEMOGLOBIN 31.3 pg (27.0-31.0); MEAN CORPUSCULAR HGB CONC 33.2 g/dL (33.0-37.0); MEAN PLATELET VOLUME 9.8 fl (7.2-11.7); MONO # 0.6 K/uL (0.0-0.8); MONO % 9.8 % (0.0-10.0); NEUT # 4.6 K/uL (1.8-7.0); NRBC % 0.2 % (0.0-0.0); PLATELET COUNT 258 K/uL (130-400); RBC 3.41 Mil/uL (4.40-5.90); RED CELL DISTRIBUTION WIDTH 17.6 % (11.5-14.5); WHITE BLOOD COUNT 5.7 K/uL (4.8-10.8)
[2017-06-22 20:50] LABS: INR 1.2 (0.9-1.2); PARTIAL THROMBOPLASTIN TIME 45.1 Seconds (25.6-37.1); PROTHROMBIN TIME 13.8 Seconds (9.8-13.1)
[2017-06-22 20:53] LABS: ABG ALLEN TEST YES; ARTERIAL BLOOD GAS HCO3 15.8 mmol/L (21-28); ARTERIAL BLOOD GAS O2 SAT 85.3 % (95-98); ARTERIAL BLOOD GAS PCO2 73 mm/Hg (35-45); ARTERIAL BLOOD GAS PH 7.06 (7.35-7.45); ARTERIAL BLOOD GAS PO2 53 mm/Hg (80-100); ARTERIAL BLOOD GAS TCO2 22.9 mmol/L (22-28); VENOUS BLOOD GAS BASE EXCESS -10.8 mmol/L (0.0-2.0); VENOUS BLOOD GAS PCO2 73 mmHg (40-60); VENOUS BLOOD GAS PO2 53 mm/Hg (30-55); VENOUS BLOOD PH 7.06 (7.32-7.43)
--- NOTE | 2017-06-22 20:54 | ED PDOC ---
HPI: General Adult Time Seen by Provider: 06/22/17 19:59 Chief Complaint (Nursing): Dizziness/Lightheaded Chief Complaint (Provider): Dizziness/Lightheaded History Per: Patient, EMS History/Exam Limitations: other (Caveat: Patient is lethargic) Current Symptoms Are (Timing): Still Present Recently: Seen In ED Additional Complaint(s): Kris is a 66 year old male with a past medical history of hypertension, chronic kidney disease, diabetes, chronic left pleural effusion, nephrotic syndrome, anemia and chronic pitting edema, who was brought by EMS to the emergency department complaining of generalized weakness. As per EMS, patient is homeless and stays in a garage. . Patient was recently here (06/14/2017) and was treated with left thoracentesis.Patient history limited due to patient being lethargic. PMD: Provider KRISTY Past Medical History Reviewed: Historical Data, Nursing Documentation, Vital Signs Vital Signs: Last Vital Signs Temp 98 F 06/24/17 00:00 Pulse 67 06/24/17 00:00 Resp 38 H 06/24/17 00:00 BP 148/90 06/24/17 00:00 Pulse Ox 94 L 06/24/17 02:52 - Medical History PMH: Anemia, Anxiety, Bipolar Disorder, Bronchitis, CHF, Depression, Diabetes ( type II), HTN, Peripheral Edema, Pneumonia, Chronic Kidney Disease, Chronic Pain (b/l leg pain) Denies: Arthritis, Asthma, Atrial Fibrillation, CAD, Cardia Arrhythmia, COPD , Crohn's Disease, Dementia, Diverticulitis, Emphysema, Fractures, Gastritis, Gall Bladder Disease, HIV, Hypercholesterolemia, Hyperthyroidism, Hypothyroidism , Kidney Stones, Mitral Valve Prolapse, Osteoporosis, Pancreatitis, Paranoia, Post Traumatic Stress Disorder, Pulmonary Embolism, Rheumatoid Arthritis, Schizophrenia, Sickle Cell Disease, Sleep Apnea - Surgical History Surgical History: No Surg Hx Denies: Pacemaker - Family History Family History: States: Unknown Family Hx - Social History Current smoker - smoking cessation education provided: No Alcohol: None Drugs: Denies - Home Medications Home Medications: Ambulatory Orders Medication Instructions Recorded GlipiZIDE [Glucotrol] 10 mg PO ACD #30 tab 05/19/17 Aspirin [Ecotrin] 81 mg PO DAILY #30 tabec 06/15/17 Atorvastatin [Lipitor] 40 mg PO DAILY #30 tab 06/15/17 Calcium Acetate [Phoslo] 1,334 mg PO WM #180 capsule 06/15/17 Carvedilol [Coreg] 25 mg PO Q12 30 Days #60 tab 06/15/17 Clopidogrel [Plavix] 75 mg PO DAILY 30 Days #30 tab 06/15/17 Cyanocobalamin [Vitamin B12 1000 1,000 mcg PO DAILY 30 Days #30 tab 06/15/17 mcg Tab] Epoetin Roel [Procrit] 10,000 unit SC TTS 20 Days #30 ml 06/15/17 Ergocalciferol [Drisdol 50,000 1 cap PO Q7D 30 Days #4 cap 06/15/17 Intl Units Cap] Ferrous Sulfate [Feosol] 325 mg PO BID 30 Days #60 tab 06/15/17 Furosemide [Lasix] 40 mg PO DAILY 30 Days #30 tab 06/15/17 Gabapentin [Neurontin] 100 mg PO BID #60 cap 06/15/17 GlipiZIDE [Glucotrol] 15 mg PO ACB #90 tab 06/15/17 Mirtazapine [Remeron] 30 mg PO HS #30 tab 06/15/17 NIFEdipine ER [Procardia XL] 60 mg PO Q12H 30 Days #30 ter 06/15/17 risperiDONE [RisperDAL Tab] 3 mg PO HS #30 tab 06/15/17 - Allergies Allergies/Adverse Reactions: Allergies Allergy/AdvReac Type Severity Reaction Status Date / Time No Known Allergies Allergy Verified 05/21/17 16:02 Review of Systems Review Of Systems: ROS cannot be obtained secondary to pt's inabilty to answer questions. (Caveat: Lethargic) Physical Exam - Reviewed Nursing Documentation Reviewed: Yes Vital Signs Reviewed: Yes - Physical Exam Appears: Positive for: Well, Uncomfortable (LETHARGIC, APPEARS WEAK) Skin: Positive for: Normal Color, Warm, Dry Neck: Positive for: Normal Cardiovascular/Chest: Positive for: Regular Rate, Rhythm (BRADYCHARDIA) Respiratory: Positive for: Crackles, Rhonchi Pulses-Dorsalis Pedis (L): 2+ Pulses-Dorsalis Pedis (R): 2+ Gastrointestinal/Abdominal: Positive for: Soft Male Genital Exam: Positive for: other (Fleshy mass to right side to penile shaft noted) Extremity: Positive for: Pedal Edema (Bilateral 2+) Neurologic/Psych: Positive for: Other (LETHARGIC) - Laboratory Results Result Diagrams: 06/23/17 11:00 06/23/17 07:00 - ECG O2 Sat by Pulse Oximetry: 94 (Nasal Cannula) - Radiology X-Ray: Interpreted by Ne X-Ray Interpretation: Other (Slightly worse left-sided pleural effusion and slightly more layers in small basis as compared to 06/13 results. ) - Critical Care Total Time (In Min): 30 Medical Decision Making Medical Decision Making: LETHARGIC Time: 20:18 Plan: - Arterial Blood Gas Shock Panel - Venous Blood Gas Shock Panel - EKG - B-Type Natriuretic Peptide - CMP - Magnesium - Phosphorous - CBC - Partial Thromboplastin Time - Prothrombin Time - Portable Chest X-Ray - Lasix 40 mg IVP - Rocephin 1 gm Sodium Chloride 0.9% 100 ML - Zithromax 500 mg Sodium Chloride 0.9% 250 ml IVPB - Blood Culture - Urine Culture - Influenza A B - Urinalysis PT LEATHRAGIC. NOTED TO HAVE WORSENING PLEURAL EFFUSION ON LEFT COMPARED TO PRIOR CXR. ALSO R SIDE APPEARS TO HAVE MORE FLUID ON XR. THIS CORRELATES WITH PHYSICAL EXAM IN WHICH PT LUNGS SOUND CONGESTED. THIS IS PROB DUE TO HISTORY OF NEPHROTIC SYNDROME AND CHF. PT ALSO NOTED TO BE HYPOTHERMIC. GIVEN IV ABX FOR POSSIBLE INFECTION. WILL RULE OUT SEPSIS. PT MAINTAINING HIS BLOOD PRESSURE. Time: 20:40 Patient will be admitted as an inpatient in ICU for worsening pleural effusion, CHF,and sepsis under the care of DR Kelley. [facility] resident made aware hospitalist/granulating machine operator dr eyad tsai. Time: 20:43 Critical Care Time: 30 minutes Patient placed on BIPAP due to increasing c02 levels and is clinically improving slightly w bipap.. Time: 21:08 - BiPAP/CPAP Setting Adjustment - Lasix 40 mmg IVP Time: 21:46 - Lactic Acid - Arterial Blood Gas Scribe Attestation: Documented by Nathaniel Lombardi, acting as a scribe for Aliza Tanner MD. Provider Scribe Attestation: All medical record entries made by the Scribe were at my direction and personally dictated by me. I have reviewed the chart and agree that the record accurately reflects my personal performance of the history, physical exam, medical decision making, and the department course for this patient. I have also personally directed, reviewed, and agree with the discharge instructions and disposition. Disposition - Clinical Impression Clinical Impression: CHF (congestive heart failure), Pleural effusion - Patient ED Disposition Is Patient to be Admitted: Yes - Disposition Disposition Time: 20:45 Condition: GUARDED
[2017-06-22 21:00] LABS: ALB/GLOB RATIO 0.9 (1.0-2.1); ALBUMIN 2.9 g/dL (3.5-5.0); CALCIUM 8.3 mg/dL (8.4-10.2)
[2017-06-22 21:03] LABS: ABG ALLEN TEST YES; ARTERIAL BLOOD GAS HCO3 16.1 mmol/L (21-28); ARTERIAL BLOOD GAS HEMOGLOBIN 10.2 g/dL (11.7-17.4); ARTERIAL BLOOD GAS O2 CAPACITY 14.9 mL/dL (16-24); ARTERIAL BLOOD GAS O2 CONTENT 14.9 ML/dL (15-23); ARTERIAL BLOOD GAS O2 SAT 100.1 % (95-98); ARTERIAL BLOOD GAS PCO2 61 mm/Hg (35-45); ARTERIAL BLOOD GAS PH 7.09 (7.35-7.45); ARTERIAL BLOOD GAS PO2 406 mm/Hg (80-100); ARTERIAL BLOOD GAS TCO2 20.4 mmol/L (22-28)
[2017-06-22 21:04] LABS: SQUAMOUS EPITHIAL < 1 /hpf (0-5); URINE BACTERIA RARE (<OCC); URINE BILIRUBIN NEGATIVE (NEGATIVE); URINE BLOOD MODERATE (NEGATIVE); URINE CLARITY CLOUDY (Clear); URINE COLOR YELLOW (YELLOW); URINE GLUCOSE (UA) >=500 mg/dL (Normal); URINE LEUKOCYTE ESTERASE NEG Leu/uL (Negative); URINE PROTEIN >=500 mg/dL (NEGATIVE); URINE UROBILINOGEN 0.2-1.0 mg/dL (0.2-1.0)
--- NOTE | 2017-06-22 21:14 | CP.PCM.CON ---
History of Present Illness - History of Present Illness History of Present Illness: CC: SOB, LE swelling HPI: This is a 66 y/o male with HTN, DM2, nephrotic syndrome/CKD, and chronic L pl effusion. He is brought in by EMS this evening with c/o generalized weakness and SOB. Apparently he is borderline homeless currently, residing in a garage. Patient is a poor historian, and provides minimal history otherwise. He was here just about 1 week prior, at which time he had a thoracentesis. ROS: 14 pt. ROS negative other than HPI MHx: HTN, DM2, nephrotic syndrome/CKD, and chronic L pl effusion SHx: Thoracentesis (L), renal biopsy Allergies: NKDA Medications: As per med rec Family Hx: No relevant findings Social Hx: Lives in garage, Surrogate dec mkr: Unclear, a person is listed as a contact but unclear relationship Past Patient History - Infectious Disease Hx of Infectious Diseases: None - Tetanus Immunizations Tetanus Immunization: Unknown - Past Medical History & Family History Past Medical History?: Yes - Past Social History Smoking Status: Light Smoker < 10 Cigarettes Daily - CARDIAC Hx Atrial Fibrillation: No Hx Cardia Arrhythmia: No Hx Congestive Heart Failure: Yes Hx Hypercholesterolemia: No Hx Hypertension: Yes Hx Mitral Valve Prolapse: No Hx Pacemaker: No Hx Peripheral Edema: Yes - PULMONARY Hx Asthma: No Hx Bronchitis: Yes Hx Chronic Obstructive Pulmonary Disease (COPD): No Hx Emphysema: No Hx Pneumonia: Yes Hx Pulmonary Embolism: No Hx Sleep Apnea: No - NEUROLOGICAL Hx Dementia: No - HEENT Hx HEENT Problems: No - RENAL Hx Chronic Kidney Disease: Yes Hx Kidney Stones: No - ENDOCRINE/METABOLIC Hx Hyperthyroidism: No Hx Hypothyroidism: No - HEMATOLOGICAL/ONCOLOGICAL Hx Anemia: Yes Hx Human Immunodeficiency Virus (HIV): No Hx Sickle Cell Disease: No - INTEGUMENTARY Hx Dermatological Problems: No - MUSCULOSKELETAL/RHEUMATOLOGICAL Hx Arthritis: No Hx Fractures: No Hx Osteoporosis: No Hx Rheumatoid Arthritis: No - GASTROINTESTINAL Hx Crohn's Disease: No Hx Diverticulitis: No Hx Gall Bladder Disease: No Hx Gastritis: No Hx Pancreatitis: No - GENITOURINARY/GYNECOLOGICAL Hx Genitourinary Disorders: No - PSYCHIATRIC Hx Anxiety: Yes Hx Bipolar Disorder: Yes Hx Depression: Yes Hx Paranoia: No Hx Post Traumatic Stress Disorder: No Hx Schizophrenia: No - SURGICAL HISTORY Hx Surgeries: No - ANESTHESIA Hx Anesthesia: Yes Hx Anesthesia Reactions: No Hx Malignant Hyperthermia: No Meds Allergies/Adverse Reactions: Allergies Allergy/AdvReac Type Severity Reaction Status Date / Time No Known Allergies Allergy Verified 05/21/17 16:02 - Medications Medications: Current Medications Furosemide (Lasix) 40 mg IVP ONCE ONE Stop: 06/22/17 21:08 Ceftriaxone Sodium 1 gm/ (Sodium Chloride) 100 mls @ 100 mls/hr IVPB STAT STA PRN Reason: Protocol Stop: 06/22/17 21:19 Last Admin: 06/22/17 20:57 Dose: 100 mls/hr Azithromycin 500 mg/ Sodium (Chloride) 250 mls @ 250 mls/hr IVPB STAT STA PRN Reason: Protocol Stop: 06/22/17 21:20 Results - Vital Signs Recent Vital Signs: Last Vital Signs Temp 86.0 F L 06/22/17 20:19 Pulse 57 L 06/22/17 20:37 Resp 16 06/22/17 20:37 BP 144/66 06/22/17 20:52 Pulse Ox 94 L 06/22/17 21:08 - Labs Result Diagrams: 06/22/17 20:33 06/22/17 20:33 Labs: Laboratory Results - last 24 hr 06/22/17 06/22/17 06/22/17 20:27 20:33 20:33 WBC 5.7 RBC 3.41 L Hgb 10.7 L D Hct 32.2 L MCV 94.4 H MCH 31.3 H MCHC 33.2 RDW 17.6 H Plt Count 258 MPV 9.8 Neut % (Auto) 80.0 H Lymph % (Auto) 9.7 L Pettis % (Auto) 9.8 Eos % (Auto) 0.0 Baso % (Auto) 0.5 Neut # 4.6 Lymph # 0.6 L Pettis # 0.6 Eos # 0.0 Baso # 0.0 PT INR APTT pCO2 pO2 HCO3 ABG pH ABG Total CO2 ABG O2 Saturation ABG O2 Content ABG Base Excess ABG Hemoglobin ABG Carboxyhemoglobin POC ABG HHb (Measured) ABG Methemoglobin ABG O2 Capacity Andry Test ABG Potassium VBG pH VBG pCO2 VBG HCO3 VBG Total CO2 VBG O2 Sat (Calc) VBG Base Excess VBG Potassium A-a O2 Difference Hgb O2 Saturation Glucose Lactate Vent Mode Mechanical Rate FiO2 Inspiratory BiPAP Expiratory BiPAP Crit Value Called To Crit Value Called By Crit Value Read Back Blood Gas Notified Time Sodium 147 Potassium 4.6 Chloride 119 H Carbon Dioxide 18 L Anion Gap 15 BUN 70 H Creatinine 2.4 H Est GFR ( Amer) 33 Est GFR (Non-Af Amer) 27 POC Glucose (mg/dL) 177 H Random Glucose 189 H Lactic Acid Calcium 8.3 L Phosphorus 7.6 H Magnesium 2.7 H Total Bilirubin 0.2 AST 47 ALT 66 Alkaline Phosphatase 189 H NT-Pro-B Natriuret Pep 3500 H Total Protein 6.0 L Albumin 2.9 L D Globulin 3.1 Albumin/Globulin Ratio 0.9 L Arterial Blood Potassium Venous Blood Potassium Urine Color Urine Clarity Urine pH Ur Specific Saxton Urine Protein Urine Glucose (UA) Urine Ketones Urine Blood Urine Nitrate Urine Bilirubin Urine Urobilinogen Ur Leukocyte Esterase Urine RBC (Auto) Urine Microscopic WBC Ur Squamous Epith Cells Urine Bacteria Hyaline Casts Influenza Typ A,B (EIA) 06/22/17 06/22/17 06/22/17 20:33 20:33 20:35 WBC RBC Hgb Hct MCV MCH MCHC RDW Plt Count MPV Neut % (Auto) Lymph % (Auto) Pettis % (Auto) Eos % (Auto) Baso % (Auto) Neut # Lymph # Pettis # Eos # Baso # PT 13.8 H INR 1.2 APTT 45.1 H pCO2 pO2 HCO3 ABG pH ABG Total CO2 ABG O2 Saturation ABG O2 Content ABG Base Excess ABG Hemoglobin ABG Carboxyhemoglobin POC ABG HHb (Measured) ABG Methemoglobin ABG O2 Capacity Andry Test ABG Potassium VBG pH VBG pCO2 VBG HCO3 VBG Total CO2 VBG O2 Sat (Calc) VBG Base Excess VBG Potassium A-a O2 Difference Hgb O2 Saturation Glucose Lactate Vent Mode Mechanical Rate FiO2 Inspiratory BiPAP Expiratory BiPAP Crit Value Called To Crit Value Called By Crit Value Read Back Blood Gas Notified Time Sodium Potassium Chloride Carbon Dioxide Anion Gap BUN Creatinine Est GFR ( Amer) Est GFR (Non-Af Amer) POC Glucose (mg/dL) Random Glucose Lactic Acid 0.5 L Calcium Phosphorus Magnesium Total Bilirubin AST ALT Alkaline Phosphatase NT-Pro-B Natriuret Pep Total Protein Albumin Globulin Albumin/Globulin Ratio Arterial Blood Potassium Venous Blood Potassium Urine Color Urine Clarity Urine pH Ur Specific Saxton Urine Protein Urine Glucose (UA) Urine Ketones Urine Blood Urine Nitrate Urine Bilirubin Urine Urobilinogen Ur Leukocyte Esterase Urine RBC (Auto) Urine Microscopic WBC Ur Squamous Epith Cells Urine Bacteria Hyaline Casts Influenza Typ A,B (EIA) Negative for flu a/b 06/22/17 06/22/17 06/22/17 20:49 20:52 21:00 WBC RBC Hgb Hct MCV MCH MCHC RDW Plt Count MPV Neut % (Auto) Lymph % (Auto) Pettis % (Auto) Eos % (Auto) Baso % (Auto) Neut # Lymph # Pettis # Eos # Baso # PT INR APTT pCO2 73 H* 61 H pO2 53 406 H HCO3 15.8 L 16.1 L ABG pH 7.06 L* 7.09 L* ABG Total CO2 22.9 20.4 L ABG O2 Saturation 85.3 L 100.1 H ABG O2 Content 14.9 L ABG Base Excess -10.8 L -11.3 L ABG Hemoglobin 10.2 L ABG Carboxyhemoglobin 2.0 H POC ABG HHb (Measured) -0.1 L ABG Methemoglobin 1.9 ABG O2 Capacity 14.9 L Andry Test Yes Yes ABG Potassium 4.5 VBG pH 7.06 L* VBG pCO2 73 H* VBG HCO3 15.8 VBG Total CO2 22.9 VBG O2 Sat (Calc) 85.3 H VBG Base Excess -10.8 L VBG Potassium 4.5 A-a O2 Difference 231.0 Hgb O2 Saturation 96.2 Glucose 200 H Lactate 0.4 L Vent Mode Bipap Mechanical Rate 14 FiO2 21.0 100.0 Inspiratory BiPAP 12 Expiratory BiPAP 5 Crit Value Called To carlos Tanner md, md Crit Value Called By [id number] Crit Value Read Back Y Y Blood Gas Notified Time 2051 2102 Sodium 147.0 Potassium Chloride 121.0 H Carbon Dioxide Anion Gap BUN Creatinine Est GFR ( Amer) Est GFR (Non-Af Amer) POC Glucose (mg/dL) Random Glucose Lactic Acid Calcium Phosphorus Magnesium Total Bilirubin AST ALT Alkaline Phosphatase NT-Pro-B Natriuret Pep Total Protein Albumin Globulin Albumin/Globulin Ratio Arterial Blood Potassium 4.5 Venous Blood Potassium 4.5 Urine Color Yellow Urine Clarity Cloudy Urine pH 6.0 Ur Specific Saxton 1.018 Urine Protein >=500 Urine Glucose (UA) >=500 Urine Ketones Trace Urine Blood Moderate Urine Nitrate Positive H Urine Bilirubin Negative Urine Urobilinogen 0.2-1.0 Ur Leukocyte Esterase Neg Urine RBC (Auto) 4 H Urine Microscopic WBC 12 H Ur Squamous Epith Cells < 1 Urine Bacteria Rare Hyaline Casts 3-5 H Influenza Typ A,B (EIA) - EKG Data EKG Interpreted by: Myself EKG shows normal: Sinus rhythm Rate: Bradycardia - EKG Data EKG comments: 1 deg AV block, bradycardia, artifact in lateral leads - Imaging and Cardiology Chest x-ray Status: Report reviewed by me (vol overload; appearance of pleural effusions b/l ) Assessment & Plan (1) HCAP (healthcare-associated pneumonia) Assessment and Plan: 66 y/o male with multiple medical conditions presenting with worsening LE edema , SOB, and possibly HCAP as well as UTI and sepsis; patient also with worsening renal function. Plan discussed with resident, and details are in resident note. Briefly, -Admit to ICU -Continue Bairhugger -Agree with starting renally dosed Vanco and Zosyn IV given patient was recently in the hospital, this will cover UTI as well; f/u cultures, repeat lactic acid -Continue BiPAP, repeat ABG in 1 hr and AM; NPO while on bipap and GI PPx with Protonix -Duonebs PRN -Continue aggressive diuresis, lasix 60 mg IV Q12h to start, and increase dose as necessary; measure i/o -SCDs for DVT PPx now in case patient goes for repeat thoracentesis Status: Acute (2) Anasarca Status: Acute (3) Acute kidney injury superimposed on chronic kidney disease Status: Acute (4) DM2 (diabetes mellitus, type 2) Status: Acute (5) Pleural effusion Status: Acute (6) Type 2 diabetes mellitus Status: Chronic (7) DVT prophylaxis Status: Acute (8) Sepsis Status: Acute
[2017-06-22 21:18] LABS: ANISOCYTOSIS MODERATE; BANDS 10 % (0-2); LYMPHOCYTE 10 % (20-50); MICROCYTOSIS SLIGHT; MONOCYTE 10 % (0-10); NEUTROPHIL 69 % (42-75); OVALOCYTES SLIGHT; PLATELET ESTIMATE NORMAL (NORMAL); POIKILOCYTOSIS SLIGHT; REACTIVE LYMPHOCYTES 1 % (0-0); SCHISTOCYTES SLIGHT; SPHEROCYTES SLIGHT; TOTAL CELLS COUNTED 100
[2017-06-22 21:19] LABS: ACANTHOCYTES SLIGHT; BURR CELLS MODERATE; GIANT PLATELETS PRESENT; LARGE PLATELETS PRESENT
[2017-06-22] MEDS ORDERED: Albuterol-Ipratrop 3 mg / 0.5 (3 ml) UD INH PRN (22:30)
[2017-06-22] MEDS ORDERED: Glucagon Recombinant 1 mg Inj IM PRN (22:36)
[2017-06-22 22:43] LABS: ABG ALLEN TEST YES; ARTERIAL BLOOD GAS HCO3 17.4 mmol/L (21-28); ARTERIAL BLOOD GAS HEMOGLOBIN 8.9 g/dL (11.7-17.4); ARTERIAL BLOOD GAS O2 CAPACITY 12.3 mL/dL (16-24); ARTERIAL BLOOD GAS O2 CONTENT 12.1 ML/dL (15-23); ARTERIAL BLOOD GAS O2 SAT 98.6 % (95-98); ARTERIAL BLOOD GAS PCO2 54 mm/Hg (35-45); ARTERIAL BLOOD GAS PH 7.15 (7.35-7.45); ARTERIAL BLOOD GAS PO2 95 mm/Hg (80-100); ARTERIAL BLOOD GAS TCO2 20.5 mmol/L (22-28)
--- NOTE | 2017-06-22 22:51 | CP.PCM.HP ---
<Nathalia Melo - Last Filed: 06/23/17 00:55> History of Present Illness - History of Present Illness History of Present Illness: 66 yo ,m, PMhx/o HTN,DM,CKD, chronic left pleural effusion, nephrotic syndrome, anemia and chronic pitting edema, who was brought by EMS to the emergency department complaining of generalized weakness. As per EMS, patient is homeless and stays in a garage. Patient lethargic in ED, with respiratory distress, using bipap, with hypothermia and difficulty to obtain history due to patient condition. Patient open eye on verbal stimuli and moves her head to states SOB and denies chest pain. Patient was recent discharged from hospital 06/15/17 PMH: HTN, NIIDM2, CKD stage 3, depression, left pleural effusion, nephrotic syndrome, Anemia Medications as per orders Allergies: NKDA Social: denies etoh, +tobacco use Surgical Hx:thoracocentesis, left renal biopsy Family hx: unknown PMD: [facility] ED course: ABG: respiraotory acidosis PH:7.06. PCO@ 61. Bipap Meds: Ceftrixone, Azithromycin x1 dose,Lasix 80 mg IV -ICU consult, ICU admission Present on Admission - Present on Admission Any Indicators Present on Admission: No History of DVT/PE: No History of Uncontrolled Diabetes: No Urinary Catheter: No Decubitus Ulcer Present: No Review of Systems - Review of Systems Review of Systems: Unable to obtain due to patient condition. - Cardiovascular Cardiovascular: As Per HPI - Respiratory Respiratory: Dyspnea Past Patient History - Infectious Disease Hx of Infectious Diseases: None - Tetanus Immunizations Tetanus Immunization: Unknown - Past Medical History & Family History Past Medical History?: Yes - Past Social History Smoking Status: Light Smoker < 10 Cigarettes Daily - CARDIAC Hx Atrial Fibrillation: No Hx Cardia Arrhythmia: No Hx Congestive Heart Failure: Yes Hx Hypercholesterolemia: No Hx Hypertension: Yes Hx Mitral Valve Prolapse: No Hx Pacemaker: No Hx Peripheral Edema: Yes - PULMONARY Hx Asthma: No Hx Bronchitis: Yes Hx Chronic Obstructive Pulmonary Disease (COPD): No Hx Emphysema: No Hx Pneumonia: Yes Hx Pulmonary Embolism: No Hx Sleep Apnea: No - NEUROLOGICAL Hx Dementia: No - HEENT Hx HEENT Problems: No - RENAL Hx Chronic Kidney Disease: Yes Hx Kidney Stones: No - ENDOCRINE/METABOLIC Hx Hyperthyroidism: No Hx Hypothyroidism: No - HEMATOLOGICAL/ONCOLOGICAL Hx Anemia: Yes Hx Human Immunodeficiency Virus (HIV): No Hx Sickle Cell Disease: No - INTEGUMENTARY Hx Dermatological Problems: No - MUSCULOSKELETAL/RHEUMATOLOGICAL Hx Arthritis: No Hx Fractures: No Hx Osteoporosis: No Hx Rheumatoid Arthritis: No - GASTROINTESTINAL Hx Crohn's Disease: No Hx Diverticulitis: No Hx Gall Bladder Disease: No Hx Gastritis: No Hx Pancreatitis: No - GENITOURINARY/GYNECOLOGICAL Hx Genitourinary Disorders: No - PSYCHIATRIC Hx Anxiety: Yes Hx Bipolar Disorder: Yes Hx Depression: Yes Hx Paranoia: No Hx Post Traumatic Stress Disorder: No Hx Schizophrenia: No - SURGICAL HISTORY Hx Surgeries: No - ANESTHESIA Hx Anesthesia: Yes Hx Anesthesia Reactions: No Hx Malignant Hyperthermia: No Meds Allergies/Adverse Reactions: Allergies Allergy/AdvReac Type Severity Reaction Status Date / Time No Known Allergies Allergy Verified 05/21/17 16:02 Physical Exam - Constitutional Appears: In Acute Distress, Chronically Ill - Head Exam Head Exam: ATRAUMATIC, NORMOCEPHALIC - Eye Exam Eye Exam: PERRL - ENT Exam ENT Exam: Mucous Membranes Moist - Neck Exam Neck exam: Positive for: Normal Inspection - Respiratory Exam Respiratory Exam: Decreased Breath Sounds, Rales. absent: Wheezes Additional comments: B/L diminished breath sound and left side 2/3. - Cardiovascular Exam Cardiovascular Exam: REGULAR RHYTHM, +S1 - GI/Abdominal Exam GI & Abdominal Exam: Normal Bowel Sounds, Soft. absent: Guarding, Tenderness - Extremities Exam Extremities exam: Positive for: pedal edema (3+ pitting edema B/L Legs ) - Neurological Exam Additional comments: lethargic, move 4 ext under pain stimuli, no motor deficit noted - Skin Skin Exam: Intact Results - Vital Signs Recent Vital Signs: Last Vital Signs Temp 87.0 F L 06/22/17 21:16 Pulse 84 06/22/17 21:47 Resp 18 06/22/17 21:16 BP 116/61 06/22/17 21:16 Pulse Ox 94 L 06/22/17 21:55 - Labs Result Diagrams: 06/22/17 20:33 06/22/17 20:33 Labs: Laboratory Results - last 24 hr 06/22/17 06/22/17 06/22/17 20:27 20:33 20:33 WBC 5.7 RBC 3.41 L Hgb 10.7 L D Hct 32.2 L MCV 94.4 H MCH 31.3 H MCHC 33.2 RDW 17.6 H Plt Count 258 MPV 9.8 Neut % (Auto) 80.0 H Lymph % (Auto) 9.7 L [place] % (Auto) 9.8 Eos % (Auto) 0.0 Baso % (Auto) 0.5 Neut # 4.6 Lymph # 0.6 L [place] # 0.6 Eos # 0.0 Baso # 0.0 Neutrophils % (Manual) 69 Band Neutrophils % 10 H Lymphocytes % (Manual) 10 L Reactive Lymphs % 1 H Monocytes % (Manual) 10 Platelet Estimate Normal Large Platelets Present Giant Platelets Present Poikilocytosis (manual Slight Anisocytosis (manual) Moderate Microcytosis (manual) Slight Macrocytosis (manual) Slight Spherocytes Slight Ovalocytes Slight [place] Cells Moderate Acanthocytes (Spur) Slight Schistocytes Slight PT INR APTT pCO2 pO2 HCO3 ABG pH ABG Total CO2 ABG O2 Saturation ABG O2 Content ABG Base Excess ABG Hemoglobin ABG Carboxyhemoglobin POC ABG HHb (Measured) ABG Methemoglobin ABG O2 Capacity Andry Test ABG Potassium VBG pH VBG pCO2 VBG HCO3 VBG Total CO2 VBG O2 Sat (Calc) VBG Base Excess VBG Potassium A-a O2 Difference Hgb O2 Saturation Glucose Lactate Vent Mode Mechanical Rate FiO2 Inspiratory BiPAP Expiratory BiPAP Crit Value Called To Crit Value Called By Crit Value Read Back Blood Gas Notified Time Sodium 147 Potassium 4.6 Chloride 119 H Carbon Dioxide 18 L Anion Gap 15 BUN 70 H Creatinine 2.4 H Est GFR ( Amer) 33 Est GFR (Non-Af Amer) 27 POC Glucose (mg/dL) 177 H Random Glucose 189 H Lactic Acid Calcium 8.3 L Phosphorus 7.6 H Magnesium 2.7 H Total Bilirubin 0.2 AST 47 ALT 66 Alkaline Phosphatase 189 H Troponin I NT-Pro-B Natriuret Pep 3500 H Total Protein 6.0 L Albumin 2.9 L D Globulin 3.1 Albumin/Globulin Ratio 0.9 L Arterial Blood Potassium Venous Blood Potassium Urine Color Urine Clarity Urine pH Ur Specific [place] Urine Protein Urine Glucose (UA) Urine Ketones Urine Blood Urine Nitrate Urine Bilirubin Urine Urobilinogen Ur Leukocyte Esterase Urine RBC (Auto) Urine Microscopic WBC Ur Squamous Epith Cells Urine Bacteria Hyaline Casts Influenza Typ A,B (EIA) 06/22/17 06/22/17 06/22/17 20:33 20:33 20:35 WBC RBC Hgb Hct MCV MCH MCHC RDW Plt Count MPV Neut % (Auto) Lymph % (Auto) [place] % (Auto) Eos % (Auto) Baso % (Auto) Neut # Lymph # [place] # Eos # Baso # Neutrophils % (Manual) Band Neutrophils % Lymphocytes % (Manual) Reactive Lymphs % Monocytes % (Manual) Platelet Estimate Large Platelets Giant Platelets Poikilocytosis (manual Anisocytosis (manual) Microcytosis (manual) Macrocytosis (manual) Spherocytes Ovalocytes Jude Cells Acanthocytes (Spur) Schistocytes PT 13.8 H INR 1.2 APTT 45.1 H pCO2 pO2 HCO3 ABG pH ABG Total CO2 ABG O2 Saturation ABG O2 Content ABG Base Excess ABG Hemoglobin ABG Carboxyhemoglobin POC ABG HHb (Measured) ABG Methemoglobin ABG O2 Capacity Andry Test ABG Potassium VBG pH VBG pCO2 VBG HCO3 VBG Total CO2 VBG O2 Sat (Calc) VBG Base Excess VBG Potassium A-a O2 Difference Hgb O2 Saturation Glucose Lactate Vent Mode Mechanical Rate FiO2 Inspiratory BiPAP Expiratory BiPAP Crit Value Called To Crit Value Called By Crit Value Read Back Blood Gas Notified Time Sodium Potassium Chloride Carbon Dioxide Anion Gap BUN Creatinine Est GFR ( Amer) Est GFR (Non-Af Amer) POC Glucose (mg/dL) Random Glucose Lactic Acid 0.5 L Calcium Phosphorus Magnesium Total Bilirubin AST ALT Alkaline Phosphatase Troponin I NT-Pro-B Natriuret Pep Total Protein Albumin Globulin Albumin/Globulin Ratio Arterial Blood Potassium Venous Blood Potassium Urine Color Urine Clarity Urine pH Ur Specific [place] Urine Protein Urine Glucose (UA) Urine Ketones Urine Blood Urine Nitrate Urine Bilirubin Urine Urobilinogen Ur Leukocyte Esterase Urine RBC (Auto) Urine Microscopic WBC Ur Squamous Epith Cells Urine Bacteria Hyaline Casts Influenza Typ A,B (EIA) Negative for flu a/b 06/22/17 06/22/17 06/22/17 20:49 20:52 21:00 WBC RBC Hgb Hct MCV MCH MCHC RDW Plt Count MPV Neut % (Auto) Lymph % (Auto) [place] % (Auto) Eos % (Auto) Baso % (Auto) Neut # Lymph # [place] # Eos # Baso # Neutrophils % (Manual) Band Neutrophils % Lymphocytes % (Manual) Reactive Lymphs % Monocytes % (Manual) Platelet Estimate Large Platelets Giant Platelets Poikilocytosis (manual Anisocytosis (manual) Microcytosis (manual) Macrocytosis (manual) Spherocytes Ovalocytes Jude Cells Acanthocytes (Spur) Schistocytes PT INR APTT pCO2 73 H* 61 H pO2 53 406 H HCO3 15.8 L 16.1 L ABG pH 7.06 L* 7.09 L* ABG Total CO2 22.9 20.4 L ABG O2 Saturation 85.3 L 100.1 H ABG O2 Content 14.9 L ABG Base Excess -10.8 L -11.3 L ABG Hemoglobin 10.2 L ABG Carboxyhemoglobin 2.0 H POC ABG HHb (Measured) -0.1 L ABG Methemoglobin 1.9 ABG O2 Capacity 14.9 L Andry Test Yes Yes ABG Potassium 4.5 VBG pH 7.06 L* VBG pCO2 73 H* VBG HCO3 15.8 VBG Total CO2 22.9 VBG O2 Sat (Calc) 85.3 H VBG Base Excess -10.8 L VBG Potassium 4.5 A-a O2 Difference 231.0 Hgb O2 Saturation 96.2 Glucose 200 H Lactate 0.4 L Vent Mode Bipap Mechanical Rate 14 FiO2 21.0 100.0 Inspiratory BiPAP 12 Expiratory BiPAP 5 Crit Value Called To aliza Tanner md, md Crit Value Called By [id number] Crit Value Read Back Y Y Blood Gas Notified Time 2051 2102 Sodium 147.0 Potassium Chloride 121.0 H Carbon Dioxide Anion Gap BUN Creatinine Est GFR ( Amer) Est GFR (Non-Af Amer) POC Glucose (mg/dL) Random Glucose Lactic Acid Calcium Phosphorus Magnesium Total Bilirubin AST ALT Alkaline Phosphatase Troponin I NT-Pro-B Natriuret Pep Total Protein Albumin Globulin Albumin/Globulin Ratio Arterial Blood Potassium 4.5 Venous Blood Potassium 4.5 Urine Color Yellow Urine Clarity Cloudy Urine pH 6.0 Ur Specific [place] 1.018 Urine Protein >=500 Urine Glucose (UA) >=500 Urine Ketones Trace Urine Blood Moderate Urine Nitrate Positive H Urine Bilirubin Negative Urine Urobilinogen 0.2-1.0 Ur Leukocyte Esterase Neg Urine RBC (Auto) 4 H Urine Microscopic WBC 12 H Ur Squamous Epith Cells < 1 Urine Bacteria Rare Hyaline Casts 3-5 H Influenza Typ A,B (EIA) 06/22/17 06/22/17 21:55 22:42 WBC RBC Hgb Hct MCV MCH MCHC RDW Plt Count MPV Neut % (Auto) Lymph % (Auto) [place] % (Auto) Eos % (Auto) Baso % (Auto) Neut # Lymph # [place] # Eos # Baso # Neutrophils % (Manual) Band Neutrophils % Lymphocytes % (Manual) Reactive Lymphs % Monocytes % (Manual) Platelet Estimate Large Platelets Giant Platelets Poikilocytosis (manual Anisocytosis (manual) Microcytosis (manual) Macrocytosis (manual) Spherocytes Ovalocytes Jude Cells Acanthocytes (Spur) Schistocytes PT INR APTT pCO2 54 H pO2 95 HCO3 17.4 L ABG pH 7.15 L* ABG Total CO2 20.5 L ABG O2 Saturation 98.6 H ABG O2 Content 12.1 L ABG Base Excess -9.7 L ABG Hemoglobin 8.9 L ABG Carboxyhemoglobin 2.1 H POC ABG HHb (Measured) 1.4 ABG Methemoglobin 0.8 ABG O2 Capacity 12.3 L Andry Test Yes ABG Potassium VBG pH VBG pCO2 VBG HCO3 VBG Total CO2 VBG O2 Sat (Calc) VBG Base Excess VBG Potassium A-a O2 Difference 194.0 Hgb O2 Saturation 95.8 Glucose Lactate Vent Mode Mechanical Rate 12 FiO2 50.0 Inspiratory BiPAP 12 Expiratory BiPAP 5 Crit Value Called To Md anjana smart Crit Value Called By 515 Crit Value Read Back Y Blood Gas Notified Time 2245 Sodium Potassium Chloride Carbon Dioxide Anion Gap BUN Creatinine Est GFR ( Amer) Est GFR (Non-Af Amer) POC Glucose (mg/dL) Random Glucose Lactic Acid Calcium Phosphorus Magnesium Total Bilirubin AST ALT Alkaline Phosphatase Troponin I < 0.0120 NT-Pro-B Natriuret Pep Total Protein Albumin Globulin Albumin/Globulin Ratio Arterial Blood Potassium Venous Blood Potassium Urine Color Urine Clarity Urine pH Ur Specific [place] Urine Protein Urine Glucose (UA) Urine Ketones Urine Blood Urine Nitrate Urine Bilirubin Urine Urobilinogen Ur Leukocyte Esterase Urine RBC (Auto) Urine Microscopic WBC Ur Squamous Epith Cells Urine Bacteria Hyaline Casts Influenza Typ A,B (EIA) Assessment & Plan - Assessment and Plan (Free Text) Plan: 66 yo ,m, PMhx/o HTN,DM,CKD, chronic left pleural effusion, nephrotic syndrome, anemia and chronic pitting edema, who was brought by EMS to the emergency department complaining of generalized weakness admitted for acute respiratory failure, CHF,sepsis Assesment/Plan 1) Acute Respiratory Failure secondary to overload fluids, pleural effusion, Anasarca -Admit ICU -NPO -Bipap -s/p Lasix 80 ED -Lasix 60 mg BID 2) HAP -recent admission -worsening left pleural effusion -Vanco, Zosyn -f/u CXR 3) Sepsis SIRS(hypothermia,taquipnea) plus UTI, pleural effusion -Abx Vanco, zosyn -Central line left femoral placed due to hypotension and if needed pressors -f/u blood cx 4) Acute diastolic CHF secondary to pulmonary edema and fluid overload -ProBNP 3500 -on lasix -Echo 05/31/17 normal EF 60-65% 5) UTI leukocyturia, nitrates + -urine cx 6) Anasarca secondary to nephrotic syndrome 7) Left Pleural effusion -chronic, has had thoracentesis in the past -f/u CXR 8) Acute in CKD stage 3 GFR27 BUN/cr 70/2.4 9) DM -home meds hold -SSI 10) HTN -hold meds due to hypotension 11) DVT Prophylaxis SCD in case need repeated thoracentesis tomorrow <Rocio Whitt - Last Filed: 06/23/17 08:19> Results - Vital Signs Recent Vital Signs: Last Vital Signs Temp 98.6 F 06/23/17 07:00 Pulse 86 06/23/17 07:00 Resp 34 H 06/23/17 07:00 BP 122/60 06/23/17 07:00 Pulse Ox 95 06/23/17 07:00 - Labs Result Diagrams: 06/23/17 04:30 06/23/17 07:00 Labs: Laboratory Results - last 24 hr 06/22/17 06/22/17 06/22/17 00:22 20:27 20:33 WBC RBC Hgb Hct MCV MCH MCHC RDW Plt Count MPV Neut % (Auto) Lymph % (Auto) [place] % (Auto) Eos % (Auto) Baso % (Auto) Neut # Lymph # [place] # Eos # Baso # Neutrophils % (Manual) Band Neutrophils % Lymphocytes % (Manual) Reactive Lymphs % Monocytes % (Manual) Platelet Estimate Large Platelets Giant Platelets Poikilocytosis (manual Anisocytosis (manual) Microcytosis (manual) Macrocytosis (manual) Spherocytes Ovalocytes Jude Cells Acanthocytes (Spur) Schistocytes PT INR APTT pCO2 pO2 59 H HCO3 ABG pH ABG Total CO2 ABG O2 Saturation ABG O2 Content ABG Base Excess ABG Hemoglobin ABG Carboxyhemoglobin POC ABG HHb (Measured) ABG Methemoglobin ABG O2 Capacity Andry Test ABG Potassium VBG pH 7.18 L* VBG pCO2 48 VBG HCO3 16.4 VBG Total CO2 19.4 L VBG O2 Sat (Calc) 93.5 H VBG Base Excess -10.4 L VBG Potassium 4.6 A-a O2 Difference Hgb O2 Saturation Sodium 146.0 147 Chloride 120.0 H 119 H Glucose 195 H Lactate 0.5 L Vent Mode Mechanical Rate FiO2 50.0 Inspiratory BiPAP Expiratory BiPAP 5 Crit Value Called To Desire kaplan Crit Value Called By Khushboo taylor Crit Value Read Back Y Blood Gas Notified Time 28 Potassium 4.6 Carbon Dioxide 18 L Anion Gap 15 BUN 70 H Creatinine 2.4 H Est GFR ( Amer) 33 Est GFR (Non-Af Amer) 27 POC Glucose (mg/dL) 177 H Random Glucose 189 H Lactic Acid Calcium 8.3 L Phosphorus 7.6 H Magnesium 2.7 H Total Bilirubin 0.2 AST 47 ALT 66 Alkaline Phosphatase 189 H Troponin I NT-Pro-B Natriuret Pep 3500 H Total Protein 6.0 L Albumin 2.9 L D Globulin 3.1 Albumin/Globulin Ratio 0.9 L Arterial Blood Potassium Venous Blood Potassium 4.6 Urine Color Urine Clarity Urine pH Ur Specific [place] Urine Protein Urine Glucose (UA) Urine Ketones Urine Blood Urine Nitrate Urine Bilirubin Urine Urobilinogen Ur Leukocyte Esterase Urine RBC (Auto) Urine Microscopic WBC Ur Squamous Epith Cells Urine Bacteria Hyaline Casts Influenza Typ A,B (EIA) 06/22/17 06/22/17 06/22/17 20:33 20:33 20:33 WBC 5.7 RBC 3.41 L Hgb 10.7 L D Hct 32.2 L MCV 94.4 H MCH 31.3 H MCHC 33.2 RDW 17.6 H Plt Count 258 MPV 9.8 Neut % (Auto) 80.0 H Lymph % (Auto) 9.7 L [place] % (Auto) 9.8 Eos % (Auto) 0.0 Baso % (Auto) 0.5 Neut # 4.6 Lymph # 0.6 L [place] # 0.6 Eos # 0.0 Baso # 0.0 Neutrophils % (Manual) 69 Band Neutrophils % 10 H Lymphocytes % (Manual) 10 L Reactive Lymphs % 1 H Monocytes % (Manual) 10 Platelet Estimate Normal Large Platelets Present Giant Platelets Present Poikilocytosis (manual Slight Anisocytosis (manual) Moderate Microcytosis (manual) Slight Macrocytosis (manual) Slight Spherocytes Slight Ovalocytes Slight [place] Cells Moderate Acanthocytes (Spur) Slight Schistocytes Slight PT 13.8 H INR 1.2 APTT 45.1 H pCO2 pO2 HCO3 ABG pH ABG Total CO2 ABG O2 Saturation ABG O2 Content ABG Base Excess ABG Hemoglobin ABG Carboxyhemoglobin POC ABG HHb (Measured) ABG Methemoglobin ABG O2 Capacity Andry Test ABG Potassium VBG pH VBG pCO2 VBG HCO3 VBG Total CO2 VBG O2 Sat (Calc) VBG Base Excess VBG Potassium A-a O2 Difference Hgb O2 Saturation Sodium Chloride Glucose Lactate Vent Mode Mechanical Rate FiO2 Inspiratory BiPAP Expiratory BiPAP Crit Value Called To Crit Value Called By Crit Value Read Back Blood Gas Notified Time Potassium Carbon Dioxide Anion Gap BUN Creatinine Est GFR ( Amer) Est GFR (Non-Af Amer) POC Glucose (mg/dL) Random Glucose Lactic Acid Calcium Phosphorus Magnesium Total Bilirubin AST ALT Alkaline Phosphatase Troponin I NT-Pro-B Natriuret Pep Total Protein Albumin Globulin Albumin/Globulin Ratio Arterial Blood Potassium Venous Blood Potassium Urine Color Urine Clarity Urine pH Ur Specific [place] Urine Protein Urine Glucose (UA) Urine Ketones Urine Blood Urine Nitrate Urine Bilirubin Urine Urobilinogen Ur Leukocyte Esterase Urine RBC (Auto) Urine Microscopic WBC Ur Squamous Epith Cells Urine Bacteria Hyaline Casts Influenza Typ A,B (EIA) Negative for flu a/b 06/22/17 06/22/17 06/22/17 20:35 20:49 20:52 WBC RBC Hgb Hct MCV MCH MCHC RDW Plt Count MPV Neut % (Auto) Lymph % (Auto) [place] % (Auto) Eos % (Auto) Baso % (Auto) Neut # Lymph # [place] # Eos # Baso # Neutrophils % (Manual) Band Neutrophils % Lymphocytes % (Manual) Reactive Lymphs % Monocytes % (Manual) Platelet Estimate Large Platelets Giant Platelets Poikilocytosis (manual Anisocytosis (manual) Microcytosis (manual) Macrocytosis (manual) Spherocytes Ovalocytes Jude Cells Acanthocytes (Spur) Schistocytes PT INR APTT pCO2 73 H* pO2 53 HCO3 15.8 L ABG pH 7.06 L* ABG Total CO2 22.9 ABG O2 Saturation 85.3 L ABG O2 Content ABG Base Excess -10.8 L ABG Hemoglobin ABG Carboxyhemoglobin POC ABG HHb (Measured) ABG Methemoglobin ABG O2 Capacity Andry Test Yes ABG Potassium 4.5 VBG pH 7.06 L* VBG pCO2 73 H* VBG HCO3 15.8 VBG Total CO2 22.9 VBG O2 Sat (Calc) 85.3 H VBG Base Excess -10.8 L VBG Potassium 4.5 A-a O2 Difference Hgb O2 Saturation Sodium 147.0 Chloride 121.0 H Glucose 200 H Lactate 0.4 L Vent Mode Mechanical Rate FiO2 21.0 Inspiratory BiPAP Expiratory BiPAP Crit Value Called To aliza Tanner md Crit Value Called By 6075 Crit Value Read Back Y Blood Gas Notified Time 2051 Potassium Carbon Dioxide Anion Gap BUN Creatinine Est GFR ( Amer) Est GFR (Non-Af Amer) POC Glucose (mg/dL) Random Glucose Lactic Acid 0.5 L Calcium Phosphorus Magnesium Total Bilirubin AST ALT Alkaline Phosphatase Troponin I NT-Pro-B Natriuret Pep Total Protein Albumin Globulin Albumin/Globulin Ratio Arterial Blood Potassium 4.5 Venous Blood Potassium 4.5 Urine Color Yellow Urine Clarity Cloudy Urine pH 6.0 Ur Specific [place] 1.018 Urine Protein >=500 Urine Glucose (UA) >=500 Urine Ketones Trace Urine Blood Moderate Urine Nitrate Positive H Urine Bilirubin Negative Urine Urobilinogen 0.2-1.0 Ur Leukocyte Esterase Neg Urine RBC (Auto) 4 H Urine Microscopic WBC 12 H Ur Squamous Epith Cells < 1 Urine Bacteria Rare Hyaline Casts 3-5 H Influenza Typ A,B (EIA) 06/22/17 06/22/17 06/22/17 21:00 21:55 22:42 WBC RBC Hgb Hct MCV MCH MCHC RDW Plt Count MPV Neut % (Auto) Lymph % (Auto) [place] % (Auto) Eos % (Auto) Baso % (Auto) Neut # Lymph # [place] # Eos # Baso # Neutrophils % (Manual) Band Neutrophils % Lymphocytes % (Manual) Reactive Lymphs % Monocytes % (Manual) Platelet Estimate Large Platelets Giant Platelets Poikilocytosis (manual Anisocytosis (manual) Microcytosis (manual) Macrocytosis (manual) Spherocytes Ovalocytes [place] Cells Acanthocytes (Spur) Schistocytes PT INR APTT pCO2 61 H 54 H pO2 406 H 95 HCO3 16.1 L 17.4 L ABG pH 7.09 L* 7.15 L* ABG Total CO2 20.4 L 20.5 L ABG O2 Saturation 100.1 H 98.6 H ABG O2 Content 14.9 L 12.1 L ABG Base Excess -11.3 L -9.7 L ABG Hemoglobin 10.2 L 8.9 L ABG Carboxyhemoglobin 2.0 H 2.1 H POC ABG HHb (Measured) -0.1 L 1.4 ABG Methemoglobin 1.9 0.8 ABG O2 Capacity 14.9 L 12.3 L Andry Test Yes Yes ABG Potassium VBG pH VBG pCO2 VBG HCO3 VBG Total CO2 VBG O2 Sat (Calc) VBG Base Excess VBG Potassium A-a O2 Difference 231.0 194.0 Hgb O2 Saturation 96.2 95.8 Sodium Chloride Glucose Lactate Vent Mode Bipap Mechanical Rate 14 12 FiO2 100.0 50.0 Inspiratory BiPAP 12 12 Expiratory BiPAP 5 5 Crit Value Called To Aliza smart Crit Value Called By [id number] Crit Value Read Back Y Y Blood Gas Notified Time 21025 Potassium Carbon Dioxide Anion Gap BUN Creatinine Est GFR ( Amer) Est GFR (Non-Af Amer) POC Glucose (mg/dL) Random Glucose Lactic Acid Calcium Phosphorus Magnesium Total Bilirubin AST ALT Alkaline Phosphatase Troponin I < 0.0120 NT-Pro-B Natriuret Pep Total Protein Albumin Globulin Albumin/Globulin Ratio Arterial Blood Potassium Venous Blood Potassium Urine Color Urine Clarity Urine pH Ur Specific [place] Urine Protein Urine Glucose (UA) Urine Ketones Urine Blood Urine Nitrate Urine Bilirubin Urine Urobilinogen Ur Leukocyte Esterase Urine RBC (Auto) Urine Microscopic WBC Ur Squamous Epith Cells Urine Bacteria Hyaline Casts Influenza Typ A,B (EIA) 06/22/17 06/23/17 06/23/17 22:52 04:30 06:40 WBC 2.8 L D RBC 2.65 L Hgb 8.1 L D Hct 25.3 L MCV 95.4 H MCH 30.6 MCHC 32.1 L RDW 17.5 H Plt Count 206 MPV Neut % (Auto) Lymph % (Auto) [place] % (Auto) Eos % (Auto) Baso % (Auto) Neut # Lymph # [place] # Eos # Baso # Neutrophils % (Manual) Band Neutrophils % Lymphocytes % (Manual) Reactive Lymphs % Monocytes % (Manual) Platelet Estimate Large Platelets Giant Platelets Poikilocytosis (manual Anisocytosis (manual) Microcytosis (manual) Macrocytosis (manual) Spherocytes Ovalocytes Jude Cells Acanthocytes (Spur) Schistocytes PT INR APTT pCO2 31 L pO2 83 HCO3 17.8 L ABG pH 7.32 L ABG Total CO2 17.0 L ABG O2 Saturation 98.2 H ABG O2 Content 12.8 L ABG Base Excess -9.1 L ABG Hemoglobin 9.4 L ABG Carboxyhemoglobin 1.2 POC ABG HHb (Measured) 1.8 ABG Methemoglobin 1.3 ABG O2 Capacity 13.0 L Andry Test Yes ABG Potassium VBG pH VBG pCO2 VBG HCO3 VBG Total CO2 VBG O2 Sat (Calc) VBG Base Excess VBG Potassium A-a O2 Difference 235.0 Hgb O2 Saturation 95.7 Sodium Chloride Glucose Lactate Vent Mode Bipap Mechanical Rate 12 FiO2 50.0 Inspiratory BiPAP 12 Expiratory BiPAP 5 Crit Value Called To Crit Value Called By Crit Value Read Back Blood Gas Notified Time Potassium Carbon Dioxide Anion Gap BUN Creatinine Est GFR ( Amer) Est GFR (Non-Af Amer) POC Glucose (mg/dL) 172 H Random Glucose Lactic Acid Calcium Phosphorus Magnesium Total Bilirubin AST ALT Alkaline Phosphatase Troponin I NT-Pro-B Natriuret Pep Total Protein Albumin Globulin Albumin/Globulin Ratio Arterial Blood Potassium Venous Blood Potassium Urine Color Urine Clarity Urine pH Ur Specific [place] Urine Protein Urine Glucose (UA) Urine Ketones Urine Blood Urine Nitrate Urine Bilirubin Urine Urobilinogen Ur Leukocyte Esterase Urine RBC (Auto) Urine Microscopic WBC Ur Squamous Epith Cells Urine Bacteria Hyaline Casts Influenza Typ A,B (EIA) 06/23/17 06/23/17 06/23/17 06:43 07:00 07:30 WBC RBC Hgb Hct MCV MCH MCHC RDW Plt Count MPV Neut % (Auto) Lymph % (Auto) [place] % (Auto) Eos % (Auto) Baso % (Auto) Neut # Lymph # [place] # Eos # Baso # Neutrophils % (Manual) Band Neutrophils % Lymphocytes % (Manual) Reactive Lymphs % Monocytes % (Manual) Platelet Estimate Large Platelets Giant Platelets Poikilocytosis (manual Anisocytosis (manual) Microcytosis (manual) Macrocytosis (manual) Spherocytes Ovalocytes [place] Cells Acanthocytes (Spur) Schistocytes PT INR APTT pCO2 pO2 HCO3 ABG pH ABG Total CO2 ABG O2 Saturation ABG O2 Content ABG Base Excess ABG Hemoglobin ABG Carboxyhemoglobin POC ABG HHb (Measured) ABG Methemoglobin ABG O2 Capacity Andry Test ABG Potassium VBG pH VBG pCO2 VBG HCO3 VBG Total CO2 VBG O2 Sat (Calc) VBG Base Excess VBG Potassium A-a O2 Difference Hgb O2 Saturation Sodium 147 Chloride 122 H Glucose Lactate Vent Mode Mechanical Rate FiO2 Inspiratory BiPAP Expiratory BiPAP Crit Value Called To Crit Value Called By Crit Value Read Back Blood Gas Notified Time Potassium 4.4 Carbon Dioxide 19 L Anion Gap 10 BUN 76 H Creatinine 2.7 H Est GFR ( Amer) 29 Est GFR (Non-Af Amer) 24 POC Glucose (mg/dL) 132 H Random Glucose 149 H Lactic Acid 0.7 Calcium 7.7 L Phosphorus Magnesium Total Bilirubin < 0.1 L AST 71 H D ALT 58 Alkaline Phosphatase 133 H D Troponin I < 0.0120 NT-Pro-B Natriuret Pep Total Protein 4.9 L Albumin 2.1 L D Globulin 2.7 Albumin/Globulin Ratio 0.8 L Arterial Blood Potassium Venous Blood Potassium Urine Color Urine Clarity Urine pH Ur Specific Driscoll Urine Protein Urine Glucose (UA) Urine Ketones Urine Blood Urine Nitrate Urine Bilirubin Urine Urobilinogen Ur Leukocyte Esterase Urine RBC (Auto) Urine Microscopic WBC Ur Squamous Epith Cells Urine Bacteria Hyaline Casts Influenza Typ A,B (EIA) Attending/Attestation - Attestation Notes (Text): 06/23/17 08:17 ATTENDING NOTE/ATTESATION CHART REVIEWED - WORK UP REVIEWED. CASE DISCUSSED WITH RESIDENT. PATIENT ADMITTED TO ICU WITH ICU CONSULT.. PATIENT KNOWN CKD AND NEPHROTIC SYNDROME. WORK UP SHOWS FLUID OVERLOAD, HYPOTHERMIA, RESPIRATORY INSUFF. AGREE WITH WORK UP AND INTIAL TREEATMENT.
--- NOTE | 2017-06-23 00:09 | PCM.PROC ---
Procedures Attestation:: I certify that I have explained the specified Operation(s) or Procedure(s), risks, benefits and reasonable alternatives to the Patient and/or other person responsible. The opportunity was given to ask questions and all questions answered - Central Line Placement Left Femoral Triple Lumen Catheter Aseptic technique was employed throughout the procedure: Hand Hygiene done prior to procedure, Full sterile barriers (mask, hair cover, sterile gown, sterile gloves), Full body sterile drape, Chloraprep Antiseptic: 2 minute prep for Femoral Pt. Placed on Pulse Ox Monitor: Yes Central Line Prep: Povidone-Iodine 1% Local Anesthesia Used: Lidocaine 1% Ultrasound Used for Placement: No Central Line Lumen Inserted: triple Central Line Length: 20 cm Post Procedure: Sutured in Place, Good Blood Return, All Ports Aspirated, Flushed, Capped, Sterile Dressing Applied Secured by: Suture Post Procedure X-Ray: No Patient Tolerated Procedure: Well, No Complications Immediate Complications: None
[2017-06-23 00:31] LABS: VENOUS BLOOD GAS BASE EXCESS -10.4 mmol/L (0.0-2.0); VENOUS BLOOD GAS PCO2 48 mmHg (40-60); VENOUS BLOOD GAS PO2 59 mm/Hg (30-55); VENOUS BLOOD PH 7.18 (7.32-7.43)
[2017-06-23 05:16] LABS: MEAN CELL VOLUME 95.4 fl (80.0-94.0); MEAN CORPUSCULAR HEMOGLOBIN 30.6 pg (27.0-31.0); MEAN CORPUSCULAR HGB CONC 32.1 g/dL (33.0-37.0); RBC 2.65 Mil/uL (4.40-5.90); RED CELL DISTRIBUTION WIDTH 17.5 % (11.5-14.5)
[2017-06-23 05:22] LABS: HEMOGLOBIN 8.1 g/dL (12.0-18.0); WHITE BLOOD COUNT 2.8 K/uL (4.8-10.8)
[2017-06-23 06:47] LABS: ABG ALLEN TEST YES; ARTERIAL BLOOD GAS HCO3 17.8 mmol/L (21-28); ARTERIAL BLOOD GAS HEMOGLOBIN 9.4 g/dL (11.7-17.4); ARTERIAL BLOOD GAS O2 CONTENT 12.8 ML/dL (15-23); ARTERIAL BLOOD GAS O2 SAT 98.2 % (95-98); ARTERIAL BLOOD GAS PCO2 31 mm/Hg (35-45); ARTERIAL BLOOD GAS PH 7.32 (7.35-7.45); ARTERIAL BLOOD GAS PO2 83 mm/Hg (80-100)
[2017-06-23 07:37] LABS: ALB/GLOB RATIO 0.8 (1.0-2.1); ALBUMIN 2.1 g/dL (3.5-5.0); ALT/SGPT 58 U/L (21-72); AST/SGOT 71 U/L (17-59); BLOOD UREA NITROGEN 76 mg/dl (9-20); CALCIUM 7.7 mg/dL (8.4-10.2); GFR AFRICAN-AMERICAN 29; GFR NON-AFRICAN AMERICAN 24
--- NOTE | 2017-06-23 08:36 | CARD ---
APPROVED REPORT EKG Measurement Heart [id number] <Conclusion> Sinus bradycardia with 1st degree AV block Prolonged QT Abnormal ECG
--- NOTE | 2017-06-23 09:01 | RAD ---
HISTORY: Sepsis Patient COMPARISON: Chest radiograph dated 06/13/2017. FINDINGS: LUNGS: Pulmonary vascular congestion. Bibasilar atelectasis. Left basilar infiltrate not excluded. PLEURA: Small right and moderate left pleural effusions. No pneumothorax apparent. CARDIOVASCULAR: Atherosclerotic aortic calcifications. Cardiomediastinal silhouette stably enlarged. OSSEOUS STRUCTURES: Unchanged. VISUALIZED UPPER ABDOMEN: Normal. OTHER FINDINGS: None. IMPRESSION: Pulmonary vascular congestion with small right and moderate left pleural effusions. Left basilar infiltrate not excluded.
--- NOTE | 2017-06-23 09:50 | CP.PCM.PN ---
<Melissa Vega - Last Filed: 06/23/17 11:02> Subjective - Date & Time of Evaluation Date of Evaluation: 06/23/17 Time of Evaluation: 09:48 - Subjective Subjective: BP: 123/86, HR: 86 O2 saturation:97% on bipap: IPAP:12, EPAP:5, FIO2: 50, Rate:12 66 YO M seen and examined at bedside, not responding to verbal stimuli, however does respond to sternal rub. Patient is saturating at 97% on BIPAP. Objective - Vital Signs/Intake and Output Vital Signs (last 24 hours): Temp Pulse Resp BP Pulse Ox 98.6 F 86 35 H 123/61 97 06/23/17 08:00 06/23/17 08:00 06/23/17 08:00 06/23/17 08:48 06/23/17 08:00 Intake and Output: 06/23/17 06/23/17 06:59 18:59 Intake Total 600 Output Total 300 Balance 300 - Medications Medications: Current Medications Albuterol/Ipratropium (Duoneb 3 Mg/0.5 Mg (3 Ml) Ud) 3 ml INH RQ4 PRN PRN Reason: Shortness of Breath Dextrose (Dextrose 50% Inj) 0 ml IV STAT PRN; Protocol PRN Reason: Hypoglycemia Protocol Dextrose (Glutose 15) 0 gm PO ONCE PRN; Protocol PRN Reason: Hypoglycemia Protocol Furosemide (Lasix) 60 mg IV BID [facility] Last Admin: 06/23/17 08:48 Dose: 60 mg Glucagon (Glucagen Diagnostic Kit) 0 mg IM STAT PRN; Protocol PRN Reason: Hypoglycemia Protocol Vancomycin HCl 1,250 mg/ (Sodium Chloride) 250 mls @ 166.667 mls/hr IVPB Q24H [facility] PRN Reason: Protocol Last Admin: 06/23/17 01:04 Dose: 166.667 mls/hr Piperacillin Sod/Tazobactam (Sod 2.25 gm/ Sodium Chloride) 100 mls @ 100 mls/ hr IVPB Q6 [facility] PRN Reason: Protocol Last Admin: 06/23/17 09:00 Dose: 100 mls/hr Insulin Human Lispro (Humalog) 0 units SC ACHS [facility] PRN Reason: Protocol Pantoprazole Sodium (Protonix Inj) 40 mg IVP DAILY [facility] Last Admin: 06/23/17 08:49 Dose: 40 mg - Labs Labs: 06/23/17 04:30 06/23/17 07:00 PT 13.8 Seconds (9.8-13.1) H 06/22/17 20:33 INR 1.2 (0.9-1.2) 06/22/17 20:33 APTT 45.1 Seconds (25.6-37.1) H 06/22/17 20:33 - Constitutional Appears: Chronically Ill - Head Exam Head Exam: NORMAL INSPECTION - Eye Exam Eye Exam: PERRL - Respiratory Exam Respiratory Exam: Clear to Ausculation Bilateral, NORMAL BREATHING PATTERN. absent: Rhonchi, Wheezes - Cardiovascular Exam Cardiovascular Exam: REGULAR RHYTHM, +S1, +S2 - GI/Abdominal Exam GI & Abdominal Exam: Soft. absent: Tenderness - Extremities Exam Extremities Exam: Pedal Edema Additional comments: 3+ pitting edema - Neurological Exam Neurological Exam: Awake Additional comments: lethargic, move 4 ext under pain stimuli, responds to sternal rub - Skin Skin Exam: Intact Assessment and Plan - Assessment and Plan (Free Text) Assessment: 66 yo ,m, PMhx/o HTN,DM,CKD, chronic left pleural effusion, nephrotic syndrome, anemia and chronic pitting edema, who was brought by EMS to the emergency department complaining of generalized weakness admitted for acute respiratory failure, CHF,sepsis Assesment/Plan 1) Acute Respiratory Failure ( Metabolic acidosis) secondary to overload fluids, pleural effusion, Anasarca - Admit ICU - ABG: PH:7.32, CO2:31, HCO3: 17.8.Respiratory acidosis resolving, is becoming more metabolic acidosis. PH has improved from 7.15 to 7.32. - Pulm has been consulted - NPO - O2 saturation:97% on bipap: IPAP:12, EPAP:5, FIO2: 50, Rate:12 - s/p Lasix 80 ED -Lasix 60 mg BID 2) HCAP -recent admission -worsening left pleural effusion -Vanco, Zosyn -Chest X ray shows pulmonary vascular congestion with small right and moderate left pleural effusions. Left basilar infiltrate not excluded. 3) Sepsis SIRS(hypothermia,tachpnea) plus UTI, pleural effusion -Abx Vanco, zosyn -Central line left femoral placed due to hypotension and if needed pressers -f/u blood cx 4) Acute diastolic CHF secondary to pulmonary edema and fluid overload -ProBNP 3500 -on lasix -Echo 05/31/17 normal EF 60-65% 5) UTI leukocyturia, nitrates + -urine cx 6) Anasarca secondary to nephrotic syndrome 7) Left Pleural effusion -chronic, has had thoracentesis in the past -Chest X ray shows pulmonary vascular congestion with small right and moderate left pleural effusions. Left basilar infiltrate not excluded. 8) Acute in CKD stage 3 - Prelim renal biopsy results from previous results show: Nephrotic syndrome secondary to Diabetic nephropathy: Advised to continue KEVIN inhibition and DM controll. GFR27 BUN/cr 70/2.4 9) DM -home meds hold -SSI 10) HTN -hold meds due to hypotension 11) DVT prophylaxis - Lovenox 30 SC <Rocio Whitt - Last Filed: 06/24/17 08:07> Objective - Vital Signs/Intake and Output Vital Signs (last 24 hours): Temp Pulse Resp BP Pulse Ox 97.6 F 64 21 134/73 96 06/24/17 04:00 06/24/17 06:00 06/24/17 06:00 06/24/17 06:00 06/24/17 06:00 Intake and Output: 06/24/17 06/24/17 06:59 18:59 Intake Total 0 Balance 0 - Medications Medications: Current Medications Albuterol/Ipratropium (Duoneb 3 Mg/0.5 Mg (3 Ml) Ud) 3 ml INH RQ4 PRN PRN Reason: Shortness of Breath Clopidogrel Bisulfate (Plavix) 75 mg PO DAILY [facility] Dextrose (Dextrose 50% Inj) 0 ml IV STAT PRN; Protocol PRN Reason: Hypoglycemia Protocol Dextrose (Glutose 15) 0 gm PO ONCE PRN; Protocol PRN Reason: Hypoglycemia Protocol Enoxaparin Sodium (Lovenox) 30 mg SC DAILY [facility] PRN Reason: Protocol Last Admin: 06/23/17 16:17 Dose: 30 mg Epoetin Roel (Procrit) 10,000 unit SC MWF [facility] Last Admin: 06/23/17 16:18 Dose: 10,000 unit Ergocalciferol (Drisdol 50,000 Intl Units Cap) 1 cap PO Q7D [facility] Furosemide (Lasix) 60 mg IV BID [facility] Last Admin: 06/23/17 16:16 Dose: 60 mg Glucagon (Glucagen Diagnostic Kit) 0 mg IM STAT PRN; Protocol PRN Reason: Hypoglycemia Protocol Vancomycin HCl 1,250 mg/ (Sodium Chloride) 250 mls @ 166.667 mls/hr IVPB Q24H [facility] PRN Reason: Protocol Last Admin: 06/23/17 01:04 Dose: 166.667 mls/hr Piperacillin Sod/Tazobactam (Sod 2.25 gm/ Sodium Chloride) 100 mls @ 100 mls/ hr IVPB Q6 [facility] PRN Reason: Protocol Last Admin: 06/24/17 04:13 Dose: 100 mls/hr Insulin Human Lispro (Humalog) 0 units SC ACHS [facility] PRN Reason: Protocol Last Admin: 06/23/17 22:00 Dose: Not Given Pantoprazole Sodium (Protonix Inj) 40 mg IVP DAILY [facility] Last Admin: 06/23/17 08:49 Dose: 40 mg - Labs Labs: 06/24/17 05:15 06/24/17 05:15 PT 13.8 Seconds (9.8-13.1) H 06/22/17 20:33 INR 1.2 (0.9-1.2) 06/22/17 20:33 APTT 45.1 Seconds (25.6-37.1) H 06/22/17 20:33 Attending/Attestation - Attestation I have personally seen and examined this patient.: Yes I have fully participated in the care of the patient.: Yes I have reviewed all pertinent clinical information, including history, physical exam and plan: Yes Notes (Text): 06/24/17 08:06 Attending Note ATTESTATION Patient seen and examined. Case discussed with resident. Case also discussed with ICU Attending. Nephrology and Pulmonary consults called. Agree with findings and plan.
--- NOTE | 2017-06-23 10:40 | CP.PCM.CON ---
Past Patient History - Infectious Disease Hx of Infectious Diseases: None - Tetanus Immunizations Tetanus Immunization: Unknown - Past Medical History & Family History Past Medical History?: Yes - Past Social History Smoking Status: Light Smoker < 10 Cigarettes Daily - CARDIAC Hx Atrial Fibrillation: No Hx Cardia Arrhythmia: No Hx Congestive Heart Failure: Yes Hx Hypercholesterolemia: No Hx Hypertension: Yes Hx Mitral Valve Prolapse: No Hx Pacemaker: No Hx Peripheral Edema: Yes - PULMONARY Hx Asthma: No Hx Bronchitis: Yes Hx Chronic Obstructive Pulmonary Disease (COPD): No Hx Emphysema: No Hx Pneumonia: Yes Hx Pulmonary Embolism: No Hx Sleep Apnea: No - NEUROLOGICAL Hx Dementia: No - HEENT Hx HEENT Problems: No - RENAL Hx Chronic Kidney Disease: Yes Hx Kidney Stones: No - ENDOCRINE/METABOLIC Hx Hyperthyroidism: No Hx Hypothyroidism: No - HEMATOLOGICAL/ONCOLOGICAL Hx Anemia: Yes Hx Human Immunodeficiency Virus (HIV): No Hx Sickle Cell Disease: No - INTEGUMENTARY Hx Dermatological Problems: No - MUSCULOSKELETAL/RHEUMATOLOGICAL Hx Arthritis: No Hx Fractures: No Hx Osteoporosis: No Hx Rheumatoid Arthritis: No - GASTROINTESTINAL Hx Crohn's Disease: No Hx Diverticulitis: No Hx Gall Bladder Disease: No Hx Gastritis: No Hx Pancreatitis: No - GENITOURINARY/GYNECOLOGICAL Hx Genitourinary Disorders: No - PSYCHIATRIC Hx Anxiety: Yes Hx Bipolar Disorder: Yes Hx Depression: Yes Hx Paranoia: No Hx Post Traumatic Stress Disorder: No Hx Schizophrenia: No - SURGICAL HISTORY Hx Surgeries: No - ANESTHESIA Hx Anesthesia: Yes Hx Anesthesia Reactions: No Hx Malignant Hyperthermia: No Meds Allergies/Adverse Reactions: Allergies Allergy/AdvReac Type Severity Reaction Status Date / Time No Known Allergies Allergy Verified 05/21/17 16:02 - Medications Medications: Current Medications Albuterol/Ipratropium (Duoneb 3 Mg/0.5 Mg (3 Ml) Ud) 3 ml INH RQ4 PRN PRN Reason: Shortness of Breath Dextrose (Dextrose 50% Inj) 0 ml IV STAT PRN; Protocol PRN Reason: Hypoglycemia Protocol Dextrose (Glutose 15) 0 gm PO ONCE PRN; Protocol PRN Reason: Hypoglycemia Protocol Enoxaparin Sodium (Lovenox) 30 mg SC DAILY THOMAS PRN Reason: Protocol Furosemide (Lasix) 60 mg IV BID THOMAS Last Admin: 06/23/17 08:48 Dose: 60 mg Glucagon (Glucagen Diagnostic Kit) 0 mg IM STAT PRN; Protocol PRN Reason: Hypoglycemia Protocol Vancomycin HCl 1,250 mg/ (Sodium Chloride) 250 mls @ 166.667 mls/hr IVPB Q24H THOMAS PRN Reason: Protocol Last Admin: 06/23/17 01:04 Dose: 166.667 mls/hr Piperacillin Sod/Tazobactam (Sod 2.25 gm/ Sodium Chloride) 100 mls @ 100 mls/ hr IVPB Q6 THOMAS PRN Reason: Protocol Last Admin: 06/23/17 09:00 Dose: 100 mls/hr Insulin Human Lispro (Humalog) 0 units SC ACHS THOMAS PRN Reason: Protocol Pantoprazole Sodium (Protonix Inj) 40 mg IVP DAILY [facility] Last Admin: 06/23/17 08:49 Dose: 40 mg Results - Vital Signs Recent Vital Signs: Last Vital Signs Temp 98.6 F 06/23/17 08:00 Pulse 85 06/23/17 10:00 Resp 36 H 06/23/17 10:00 BP 114/62 06/23/17 10:00 Pulse Ox 96 06/23/17 10:00 - Labs Result Diagrams: 06/23/17 04:30 06/23/17 07:00 Labs: Laboratory Results - last 24 hr 06/22/17 06/22/17 06/22/17 00:22 20:27 20:33 WBC RBC Hgb Hct MCV MCH MCHC RDW Plt Count MPV Neut % (Auto) Lymph % (Auto) [place] % (Auto) Eos % (Auto) Baso % (Auto) Neut # Lymph # [place] # Eos # Baso # Neutrophils % (Manual) Band Neutrophils % Lymphocytes % (Manual) Reactive Lymphs % Monocytes % (Manual) Platelet Estimate Large Platelets Giant Platelets Poikilocytosis (manual Anisocytosis (manual) Microcytosis (manual) Macrocytosis (manual) Spherocytes Ovalocytes Jude Cells Acanthocytes (Spur) Schistocytes Retic Count PT INR APTT pCO2 pO2 59 H HCO3 ABG pH ABG Total CO2 ABG O2 Saturation ABG O2 Content ABG Base Excess ABG Hemoglobin ABG Carboxyhemoglobin POC ABG HHb (Measured) ABG Methemoglobin ABG O2 Capacity Andry Test ABG Potassium VBG pH 7.18 L* VBG pCO2 48 VBG HCO3 16.4 VBG Total CO2 19.4 L VBG O2 Sat (Calc) 93.5 H VBG Base Excess -10.4 L VBG Potassium 4.6 A-a O2 Difference Hgb O2 Saturation Sodium 146.0 147 Chloride 120.0 H 119 H Glucose 195 H Lactate 0.5 L Vent Mode Mechanical Rate FiO2 50.0 Inspiratory BiPAP Expiratory BiPAP 5 Crit Value Called To Desire kaplan Crit Value Called By Khushboo taylor Crit Value Read Back Y Blood Gas Notified Time 28 Potassium 4.6 Carbon Dioxide 18 L Anion Gap 15 BUN 70 H Creatinine 2.4 H Est GFR ( Amer) 33 Est GFR (Non-Af Amer) 27 POC Glucose (mg/dL) 177 H Random Glucose 189 H Lactic Acid Calcium 8.3 L Phosphorus 7.6 H Magnesium 2.7 H Total Bilirubin 0.2 AST 47 ALT 66 Alkaline Phosphatase 189 H Troponin I NT-Pro-B Natriuret Pep 3500 H Total Protein 6.0 L Albumin 2.9 L D Globulin 3.1 Albumin/Globulin Ratio 0.9 L Arterial Blood Potassium Venous Blood Potassium 4.6 Urine Color Urine Clarity Urine pH Ur Specific [place] Urine Protein Urine Glucose (UA) Urine Ketones Urine Blood Urine Nitrate Urine Bilirubin Urine Urobilinogen Ur Leukocyte Esterase Urine RBC (Auto) Urine Microscopic WBC Ur Squamous Epith Cells Urine Bacteria Hyaline Casts Influenza Typ A,B (EIA) 06/22/17 06/22/17 06/22/17 20:33 20:33 20:33 WBC 5.7 RBC 3.41 L Hgb 10.7 L D Hct 32.2 L MCV 94.4 H MCH 31.3 H MCHC 33.2 RDW 17.6 H Plt Count 258 MPV 9.8 Neut % (Auto) 80.0 H Lymph % (Auto) 9.7 L [place] % (Auto) 9.8 Eos % (Auto) 0.0 Baso % (Auto) 0.5 Neut # 4.6 Lymph # 0.6 L [place] # 0.6 Eos # 0.0 Baso # 0.0 Neutrophils % (Manual) 69 Band Neutrophils % 10 H Lymphocytes % (Manual) 10 L Reactive Lymphs % 1 H Monocytes % (Manual) 10 Platelet Estimate Normal Large Platelets Present Giant Platelets Present Poikilocytosis (manual Slight Anisocytosis (manual) Moderate Microcytosis (manual) Slight Macrocytosis (manual) Slight Spherocytes Slight Ovalocytes Slight Jude Cells Moderate Acanthocytes (Spur) Slight Schistocytes Slight Retic Count PT 13.8 H INR 1.2 APTT 45.1 H pCO2 pO2 HCO3 ABG pH ABG Total CO2 ABG O2 Saturation ABG O2 Content ABG Base Excess ABG Hemoglobin ABG Carboxyhemoglobin POC ABG HHb (Measured) ABG Methemoglobin ABG O2 Capacity Andry Test ABG Potassium VBG pH VBG pCO2 VBG HCO3 VBG Total CO2 VBG O2 Sat (Calc) VBG Base Excess VBG Potassium A-a O2 Difference Hgb O2 Saturation Sodium Chloride Glucose Lactate Vent Mode Mechanical Rate FiO2 Inspiratory BiPAP Expiratory BiPAP Crit Value Called To Crit Value Called By Crit Value Read Back Blood Gas Notified Time Potassium Carbon Dioxide Anion Gap BUN Creatinine Est GFR ( Amer) Est GFR (Non-Af Amer) POC Glucose (mg/dL) Random Glucose Lactic Acid Calcium Phosphorus Magnesium Total Bilirubin AST ALT Alkaline Phosphatase Troponin I NT-Pro-B Natriuret Pep Total Protein Albumin Globulin Albumin/Globulin Ratio Arterial Blood Potassium Venous Blood Potassium Urine Color Urine Clarity Urine pH Ur Specific [place] Urine Protein Urine Glucose (UA) Urine Ketones Urine Blood Urine Nitrate Urine Bilirubin Urine Urobilinogen Ur Leukocyte Esterase Urine RBC (Auto) Urine Microscopic WBC Ur Squamous Epith Cells Urine Bacteria Hyaline Casts Influenza Typ A,B (EIA) Negative for flu a/b 06/22/17 06/22/17 06/22/17 20:35 20:49 20:52 WBC RBC Hgb Hct MCV MCH MCHC RDW Plt Count MPV Neut % (Auto) Lymph % (Auto) [place] % (Auto) Eos % (Auto) Baso % (Auto) Neut # Lymph # [place] # Eos # Baso # Neutrophils % (Manual) Band Neutrophils % Lymphocytes % (Manual) Reactive Lymphs % Monocytes % (Manual) Platelet Estimate Large Platelets Giant Platelets Poikilocytosis (manual Anisocytosis (manual) Microcytosis (manual) Macrocytosis (manual) Spherocytes Ovalocytes [place] Cells Acanthocytes (Spur) Schistocytes Retic Count PT INR APTT pCO2 73 H* pO2 53 HCO3 15.8 L ABG pH 7.06 L* ABG Total CO2 22.9 ABG O2 Saturation 85.3 L ABG O2 Content ABG Base Excess -10.8 L ABG Hemoglobin ABG Carboxyhemoglobin POC ABG HHb (Measured) ABG Methemoglobin ABG O2 Capacity Andry Test Yes ABG Potassium 4.5 VBG pH 7.06 L* VBG pCO2 73 H* VBG HCO3 15.8 VBG Total CO2 22.9 VBG O2 Sat (Calc) 85.3 H VBG Base Excess -10.8 L VBG Potassium 4.5 A-a O2 Difference Hgb O2 Saturation Sodium 147.0 Chloride 121.0 H Glucose 200 H Lactate 0.4 L Vent Mode Mechanical Rate FiO2 21.0 Inspiratory BiPAP Expiratory BiPAP Crit Value Called To aliza Tanner md Crit Value Called By 6075 Crit Value Read Back Y Blood Gas Notified Time 2051 Potassium Carbon Dioxide Anion Gap BUN Creatinine Est GFR ( Amer) Est GFR (Non-Af Amer) POC Glucose (mg/dL) Random Glucose Lactic Acid 0.5 L Calcium Phosphorus Magnesium Total Bilirubin AST ALT Alkaline Phosphatase Troponin I NT-Pro-B Natriuret Pep Total Protein Albumin Globulin Albumin/Globulin Ratio Arterial Blood Potassium 4.5 Venous Blood Potassium 4.5 Urine Color Yellow Urine Clarity Cloudy Urine pH 6.0 Ur Specific [place] 1.018 Urine Protein >=500 Urine Glucose (UA) >=500 Urine Ketones Trace Urine Blood Moderate Urine Nitrate Positive H Urine Bilirubin Negative Urine Urobilinogen 0.2-1.0 Ur Leukocyte Esterase Neg Urine RBC (Auto) 4 H Urine Microscopic WBC 12 H Ur Squamous Epith Cells < 1 Urine Bacteria Rare Hyaline Casts 3-5 H Influenza Typ A,B (EIA) 06/22/17 06/22/17 06/22/17 21:00 21:55 22:42 WBC RBC Hgb Hct MCV MCH MCHC RDW Plt Count MPV Neut % (Auto) Lymph % (Auto) [place] % (Auto) Eos % (Auto) Baso % (Auto) Neut # Lymph # [place] # Eos # Baso # Neutrophils % (Manual) Band Neutrophils % Lymphocytes % (Manual) Reactive Lymphs % Monocytes % (Manual) Platelet Estimate Large Platelets Giant Platelets Poikilocytosis (manual Anisocytosis (manual) Microcytosis (manual) Macrocytosis (manual) Spherocytes Ovalocytes Jude Cells Acanthocytes (Spur) Schistocytes Retic Count PT INR APTT pCO2 61 H 54 H pO2 406 H 95 HCO3 16.1 L 17.4 L ABG pH 7.09 L* 7.15 L* ABG Total CO2 20.4 L 20.5 L ABG O2 Saturation 100.1 H 98.6 H ABG O2 Content 14.9 L 12.1 L ABG Base Excess -11.3 L -9.7 L ABG Hemoglobin 10.2 L 8.9 L ABG Carboxyhemoglobin 2.0 H 2.1 H POC ABG HHb (Measured) -0.1 L 1.4 ABG Methemoglobin 1.9 0.8 ABG O2 Capacity 14.9 L 12.3 L Andry Test Yes Yes ABG Potassium VBG pH VBG pCO2 VBG HCO3 VBG Total CO2 VBG O2 Sat (Calc) VBG Base Excess VBG Potassium A-a O2 Difference 231.0 194.0 Hgb O2 Saturation 96.2 95.8 Sodium Chloride Glucose Lactate Vent Mode Bipap Mechanical Rate 14 12 FiO2 100.0 50.0 Inspiratory BiPAP 12 12 Expiratory BiPAP 5 5 Crit Value Called To Aliza smart Crit Value Called By [id number] Crit Value Read Back Y Y Blood Gas Notified Time 2102 2244 Potassium Carbon Dioxide Anion Gap BUN Creatinine Est GFR ( Amer) Est GFR (Non-Af Amer) POC Glucose (mg/dL) Random Glucose Lactic Acid Calcium Phosphorus Magnesium Total Bilirubin AST ALT Alkaline Phosphatase Troponin I < 0.0120 NT-Pro-B Natriuret Pep Total Protein Albumin Globulin Albumin/Globulin Ratio Arterial Blood Potassium Venous Blood Potassium Urine Color Urine Clarity Urine pH Ur Specific [place] Urine Protein Urine Glucose (UA) Urine Ketones Urine Blood Urine Nitrate Urine Bilirubin Urine Urobilinogen Ur Leukocyte Esterase Urine RBC (Auto) Urine Microscopic WBC Ur Squamous Epith Cells Urine Bacteria Hyaline Casts Influenza Typ A,B (EIA) 06/22/17 06/23/17 06/23/17 22:52 04:30 06:40 WBC 2.8 L D RBC 2.65 L Hgb 8.1 L D Hct 25.3 L MCV 95.4 H MCH 30.6 MCHC 32.1 L RDW 17.5 H Plt Count 206 MPV Neut % (Auto) Lymph % (Auto) [place] % (Auto) Eos % (Auto) Baso % (Auto) Neut # Lymph # [place] # Eos # Baso # Neutrophils % (Manual) Band Neutrophils % Lymphocytes % (Manual) Reactive Lymphs % Monocytes % (Manual) Platelet Estimate Large Platelets Giant Platelets Poikilocytosis (manual Anisocytosis (manual) Microcytosis (manual) Macrocytosis (manual) Spherocytes Ovalocytes Jude Cells Acanthocytes (Spur) Schistocytes Retic Count PT INR APTT pCO2 31 L pO2 83 HCO3 17.8 L ABG pH 7.32 L ABG Total CO2 17.0 L ABG O2 Saturation 98.2 H ABG O2 Content 12.8 L ABG Base Excess -9.1 L ABG Hemoglobin 9.4 L ABG Carboxyhemoglobin 1.2 POC ABG HHb (Measured) 1.8 ABG Methemoglobin 1.3 ABG O2 Capacity 13.0 L Andry Test Yes ABG Potassium VBG pH VBG pCO2 VBG HCO3 VBG Total CO2 VBG O2 Sat (Calc) VBG Base Excess VBG Potassium A-a O2 Difference 235.0 Hgb O2 Saturation 95.7 Sodium Chloride Glucose Lactate Vent Mode Bipap Mechanical Rate 12 FiO2 50.0 Inspiratory BiPAP 12 Expiratory BiPAP 5 Crit Value Called To Crit Value Called By Crit Value Read Back Blood Gas Notified Time Potassium Carbon Dioxide Anion Gap BUN Creatinine Est GFR ( Amer) Est GFR (Non-Af Amer) POC Glucose (mg/dL) 172 H Random Glucose Lactic Acid Calcium Phosphorus Magnesium Total Bilirubin AST ALT Alkaline Phosphatase Troponin I NT-Pro-B Natriuret Pep Total Protein Albumin Globulin Albumin/Globulin Ratio Arterial Blood Potassium Venous Blood Potassium Urine Color Urine Clarity Urine pH Ur Specific [place] Urine Protein Urine Glucose (UA) Urine Ketones Urine Blood Urine Nitrate Urine Bilirubin Urine Urobilinogen Ur Leukocyte Esterase Urine RBC (Auto) Urine Microscopic WBC Ur Squamous Epith Cells Urine Bacteria Hyaline Casts Influenza Typ A,B (EIA) 06/23/17 06/23/17 06/23/17 06:43 07:00 07:30 WBC RBC Hgb Hct MCV MCH MCHC RDW Plt Count MPV Neut % (Auto) Lymph % (Auto) [place] % (Auto) Eos % (Auto) Baso % (Auto) Neut # Lymph # [place] # Eos # Baso # Neutrophils % (Manual) Band Neutrophils % Lymphocytes % (Manual) Reactive Lymphs % Monocytes % (Manual) Platelet Estimate Large Platelets Giant Platelets Poikilocytosis (manual Anisocytosis (manual) Microcytosis (manual) Macrocytosis (manual) Spherocytes Ovalocytes [place]ell Cells Acanthocytes (Spur) Schistocytes Retic Count PT INR APTT pCO2 pO2 HCO3 ABG pH ABG Total CO2 ABG O2 Saturation ABG O2 Content ABG Base Excess ABG Hemoglobin ABG Carboxyhemoglobin POC ABG HHb (Measured) ABG Methemoglobin ABG O2 Capacity Andry Test ABG Potassium VBG pH VBG pCO2 VBG HCO3 VBG Total CO2 VBG O2 Sat (Calc) VBG Base Excess VBG Potassium A-a O2 Difference Hgb O2 Saturation Sodium 147 Chloride 122 H Glucose Lactate Vent Mode Mechanical Rate FiO2 Inspiratory BiPAP Expiratory BiPAP Crit Value Called To Crit Value Called By Crit Value Read Back Blood Gas Notified Time Potassium 4.4 Carbon Dioxide 19 L Anion Gap 10 BUN 76 H Creatinine 2.7 H Est GFR ( Amer) 29 Est GFR (Non-Af Amer) 24 POC Glucose (mg/dL) 132 H Random Glucose 149 H Lactic Acid 0.7 Calcium 7.7 L Phosphorus Magnesium Total Bilirubin < 0.1 L AST 71 H D ALT 58 Alkaline Phosphatase 133 H D Troponin I < 0.0120 NT-Pro-B Natriuret Pep Total Protein 4.9 L Albumin 2.1 L D Globulin 2.7 Albumin/Globulin Ratio 0.8 L Arterial Blood Potassium Venous Blood Potassium Urine Color Urine Clarity Urine pH Ur Specific [place] Urine Protein Urine Glucose (UA) Urine Ketones Urine Blood Urine Nitrate Urine Bilirubin Urine Urobilinogen Ur Leukocyte Esterase Urine RBC (Auto) Urine Microscopic WBC Ur Squamous Epith Cells Urine Bacteria Hyaline Casts Influenza Typ A,B (EIA) 06/23/17 09:30 WBC RBC Hgb Hct MCV MCH MCHC RDW Plt Count MPV Neut % (Auto) Lymph % (Auto) [place] % (Auto) Eos % (Auto) Baso % (Auto) Neut # Lymph # [place] # Eos # Baso # Neutrophils % (Manual) Band Neutrophils % Lymphocytes % (Manual) Reactive Lymphs % Monocytes % (Manual) Platelet Estimate Large Platelets Giant Platelets Poikilocytosis (manual Anisocytosis (manual) Microcytosis (manual) Macrocytosis (manual) Spherocytes Ovalocytes [place]ell Cells Acanthocytes (Spur) Schistocytes Retic Count 5.4 H D PT INR APTT pCO2 pO2 HCO3 ABG pH ABG Total CO2 ABG O2 Saturation ABG O2 Content ABG Base Excess ABG Hemoglobin ABG Carboxyhemoglobin POC ABG HHb (Measured) ABG Methemoglobin ABG O2 Capacity Andry Test ABG Potassium VBG pH VBG pCO2 VBG HCO3 VBG Total CO2 VBG O2 Sat (Calc) VBG Base Excess VBG Potassium A-a O2 Difference Hgb O2 Saturation Sodium Chloride Glucose Lactate Vent Mode Mechanical Rate FiO2 Inspiratory BiPAP Expiratory BiPAP Crit Value Called To Crit Value Called By Crit Value Read Back Blood Gas Notified Time Potassium Carbon Dioxide Anion Gap BUN Creatinine Est GFR ( Amer) Est GFR (Non-Af Amer) POC Glucose (mg/dL) Random Glucose Lactic Acid Calcium Phosphorus Magnesium Total Bilirubin AST ALT Alkaline Phosphatase Troponin I NT-Pro-B Natriuret Pep Total Protein Albumin Globulin Albumin/Globulin Ratio Arterial Blood Potassium Venous Blood Potassium Urine Color Urine Clarity Urine pH Ur Specific [place] Urine Protein Urine Glucose (UA) Urine Ketones Urine Blood Urine Nitrate Urine Bilirubin Urine Urobilinogen Ur Leukocyte Esterase Urine RBC (Auto) Urine Microscopic WBC Ur Squamous Epith Cells Urine Bacteria Hyaline Casts Influenza Typ A,B (EIA)
[2017-06-23] MEDS: Insulin Lispro (humaLOG) 100 Units/ml Inj SC SCH ×3 (11:07→22:00)
[2017-06-23] MEDS ORDERED: NIFEdipine 60 mg ER Tab PO SCH (11:15)
--- NOTE | 2017-06-23 11:37 | RAD ---
PROCEDURE: CHEST RADIOGRAPH, 1 VIEW HISTORY: pleural effusion COMPARISON: Chest radiograph dated 06/22/2017. FINDINGS: LUNGS: Pulmonary vascular congestion. Bibasilar atelectasis. PLEURA: Small right and moderate left pleural effusions. No appreciable pneumothorax. CARDIOVASCULAR: Unchanged. OSSEOUS STRUCTURES: Unchanged. VISUALIZED UPPER ABDOMEN: Normal. OTHER FINDINGS: None. IMPRESSION: Small right and moderate left pleural effusions, grossly unchanged when accounting for differences in patient position.
--- NOTE | 2017-06-23 11:53 | US ---
PROCEDURE: Bilateral lower extremity venous duplex Doppler. HISTORY: Nephrotic syndrome.r/o DVT COMPARISON: Lower extremity ultrasound dated 06/01/2017. TECHNIQUE: Bilateral common femoral, superficial femoral, popliteal and posterior tibial veins were evaluated. Flow was assessed with color Doppler, compressibility, assessment of phasic flow and augmentation response. FINDINGS: COMMON FEMORAL VEIN: Right CFV: Unremarkable. Left CFV: Unable to be evaluated due to central line and overlying bandage. SUPERFICIAL FEMORAL VEIN: Right SFV: Unremarkable. Left SFV: Unremarkable. POPLITEAL VEIN: Right Popliteal: Unremarkable. Left Popliteal: Unremarkable. POSTERIOR TIBIAL VEIN: Right PTV: Unremarkable. Left PTV: Unremarkable. OTHER FINDINGS: Bilateral subcutaneous edema. Anechoic, avascular structure in the right popliteal fossa measuring 4.2 x 1.5 centimeter. Anechoic, avascular structure in the left popliteal fossa, measuring 5.2 x 1.4 centimeter. IMPRESSION: No evidence of deep venous thrombosis. Bilateral Balderrama's cysts.
--- NOTE | 2017-06-23 12:12 | CP.PCM.CON ---
History of Present Illness - History of Present Illness History of Present Illness: 66 y/o male with Pmx of ?monoclonal ?IgA bands on bone marrow biopsy (?MM/IgA gamopathy), developed CHINTAN/CKD with underlying chronic diastolic (EF 66%), h/o left sided recurrent pleural effusion, CKD stage II-III, Anemia of chronic disease, Dm-II, h/o HTN admitted to ICu overnight for hypercapneic respiratory failure on bi-pap. Patient remains hemodynamically stable, Utox not available. LActic normal (being treated for sepsis with IV abx). Patient has h/o smoking Patient was drowsy during my evaluation in AM with Family medicine rounds. Review of Systems - Review of Systems Systems not reviewed;Unavailable: Altered Mental Status, Intoxicated Review of Systems: limited ROS 2nd underlying change in mental status Past Patient History - Infectious Disease Hx of Infectious Diseases: None - Tetanus Immunizations Tetanus Immunization: Unknown - Past Medical History & Family History Past Medical History?: Yes - Past Social History Smoking Status: Light Smoker < 10 Cigarettes Daily - CARDIAC Hx Atrial Fibrillation: No Hx Cardia Arrhythmia: No Hx Congestive Heart Failure: Yes Hx Hypercholesterolemia: No Hx Hypertension: Yes Hx Mitral Valve Prolapse: No Hx Pacemaker: No Hx Peripheral Edema: Yes - PULMONARY Hx Asthma: No Hx Bronchitis: Yes Hx Chronic Obstructive Pulmonary Disease (COPD): No Hx Emphysema: No Hx Pneumonia: Yes Hx Pulmonary Embolism: No Hx Sleep Apnea: No - NEUROLOGICAL Hx Dementia: No - HEENT Hx HEENT Problems: No - RENAL Hx Chronic Kidney Disease: Yes Hx Kidney Stones: No - ENDOCRINE/METABOLIC Hx Hyperthyroidism: No Hx Hypothyroidism: No - HEMATOLOGICAL/ONCOLOGICAL Hx Anemia: Yes Hx Human Immunodeficiency Virus (HIV): No Hx Sickle Cell Disease: No - INTEGUMENTARY Hx Dermatological Problems: No - MUSCULOSKELETAL/RHEUMATOLOGICAL Hx Arthritis: No Hx Fractures: No Hx Osteoporosis: No Hx Rheumatoid Arthritis: No - GASTROINTESTINAL Hx Crohn's Disease: No Hx Diverticulitis: No Hx Gall Bladder Disease: No Hx Gastritis: No Hx Pancreatitis: No - GENITOURINARY/GYNECOLOGICAL Hx Genitourinary Disorders: No - PSYCHIATRIC Hx Anxiety: Yes Hx Bipolar Disorder: Yes Hx Depression: Yes Hx Paranoia: No Hx Post Traumatic Stress Disorder: No Hx Schizophrenia: No - SURGICAL HISTORY Hx Surgeries: No - ANESTHESIA Hx Anesthesia: Yes Hx Anesthesia Reactions: No Hx Malignant Hyperthermia: No Meds Allergies/Adverse Reactions: Allergies Allergy/AdvReac Type Severity Reaction Status Date / Time No Known Allergies Allergy Verified 05/21/17 16:02 - Medications Medications: Current Medications Albuterol/Ipratropium (Duoneb 3 Mg/0.5 Mg (3 Ml) Ud) 3 ml INH RQ4 PRN PRN Reason: Shortness of Breath Clopidogrel Bisulfate (Plavix) 75 mg PO DAILY [facility] Dextrose (Dextrose 50% Inj) 0 ml IV STAT PRN; Protocol PRN Reason: Hypoglycemia Protocol Dextrose (Glutose 15) 0 gm PO ONCE PRN; Protocol PRN Reason: Hypoglycemia Protocol Enoxaparin Sodium (Lovenox) 30 mg SC DAILY [facility] PRN Reason: Protocol Furosemide (Lasix) 60 mg IV BID [facility] Last Admin: 06/23/17 08:48 Dose: 60 mg Glucagon (Glucagen Diagnostic Kit) 0 mg IM STAT PRN; Protocol PRN Reason: Hypoglycemia Protocol Vancomycin HCl 1,250 mg/ (Sodium Chloride) 250 mls @ 166.667 mls/hr IVPB Q24H [facility]OMAS PRN Reason: Protocol Last Admin: 06/23/17 01:04 Dose: 166.667 mls/hr Piperacillin Sod/Tazobactam (Sod 2.25 gm/ Sodium Chloride) 100 mls @ 100 mls/ hr IVPB Q6 [facility]OMAS PRN Reason: Protocol Last Admin: 06/23/17 09:00 Dose: 100 mls/hr Insulin Human Lispro (Humalog) 0 units SC ACHS [facility]OM[facility] PRN Reason: Protocol Last Admin: 06/23/17 11:07 Dose: Not Given Pantoprazole Sodium (Protonix Inj) 40 mg IVP DAILY [facility] Last Admin: 06/23/17 08:49 Dose: 40 mg Physical Exam - Constitutional Appears: No Acute Distress, Unkempt - Head Exam Head Exam: ATRAUMATIC - ENT Exam ENT Exam: Mucous Membranes Moist - Respiratory Exam Respiratory Exam: Decreased Breath Sounds, Rales, Rhonchi. absent: Wheezes, Respiratory Distress - Cardiovascular Exam Cardiovascular Exam: REGULAR RHYTHM, +S1, +S2, Systolic Murmur - GI/Abdominal Exam GI & Abdominal Exam: Normal Bowel Sounds. absent: Diminished Bowel Sounds, Tenderness - Additional Findings Additional findings: B/L LE edema 3+ Results - Vital Signs Recent Vital Signs: Last Vital Signs Temp 98 F 06/23/17 12:00 Pulse 83 06/23/17 12:00 Resp 37 H 06/23/17 12:00 BP 124/65 06/23/17 12:00 Pulse Ox 98 06/23/17 12:00 - Labs Result Diagrams: 06/23/17 04:30 06/23/17 07:00 Labs: Laboratory Results - last 24 hr 06/22/17 06/22/17 06/22/17 00:22 20:27 20:33 WBC RBC Hgb Hct MCV MCH MCHC RDW Plt Count MPV Neut % (Auto) Lymph % (Auto) Stanton % (Auto) Eos % (Auto) Baso % (Auto) Neut # Lymph # Stanton # Eos # Baso # Neutrophils % (Manual) Band Neutrophils % Lymphocytes % (Manual) Reactive Lymphs % Monocytes % (Manual) Platelet Estimate Large Platelets Giant Platelets Poikilocytosis (manual Anisocytosis (manual) Microcytosis (manual) Macrocytosis (manual) Spherocytes Ovalocytes Jude Cells Acanthocytes (Spur) Schistocytes Retic Count PT INR APTT pCO2 pO2 59 H HCO3 ABG pH ABG Total CO2 ABG O2 Saturation ABG O2 Content ABG Base Excess ABG Hemoglobin ABG Carboxyhemoglobin POC ABG HHb (Measured) ABG Methemoglobin ABG O2 Capacity Andry Test ABG Potassium VBG pH 7.18 L* VBG pCO2 48 VBG HCO3 16.4 VBG Total CO2 19.4 L VBG O2 Sat (Calc) 93.5 H VBG Base Excess -10.4 L VBG Potassium 4.6 A-a O2 Difference Hgb O2 Saturation Sodium 146.0 147 Chloride 120.0 H 119 H Glucose 195 H Lactate 0.5 L Vent Mode Mechanical Rate FiO2 50.0 Inspiratory BiPAP Expiratory BiPAP 5 Crit Value Called To Desire kaplan Crit Value Called By Khushboo taylor Crit Value Read Back Y Blood Gas Notified Time 28 Potassium 4.6 Carbon Dioxide 18 L Anion Gap 15 BUN 70 H Creatinine 2.4 H Est GFR ( Amer) 33 Est GFR (Non-Af Amer) 27 POC Glucose (mg/dL) 177 H Random Glucose 189 H Lactic Acid Calcium 8.3 L Phosphorus 7.6 H Magnesium 2.7 H Total Bilirubin 0.2 AST 47 ALT 66 Alkaline Phosphatase 189 H Troponin I NT-Pro-B Natriuret Pep 3500 H Total Protein 6.0 L Albumin 2.9 L D Globulin 3.1 Albumin/Globulin Ratio 0.9 L Arterial Blood Potassium Venous Blood Potassium 4.6 Urine Color Urine Clarity Urine pH Ur Specific [place] Urine Protein Urine Glucose (UA) Urine Ketones Urine Blood Urine Nitrate Urine Bilirubin Urine Urobilinogen Ur Leukocyte Esterase Urine RBC (Auto) Urine Microscopic WBC Ur Squamous Epith Cells Urine Bacteria Hyaline Casts Influenza Typ A,B (EIA) 06/22/17 06/22/17 06/22/17 20:33 20:33 20:33 WBC 5.7 RBC 3.41 L Hgb 10.7 L D Hct 32.2 L MCV 94.4 H MCH 31.3 H MCHC 33.2 RDW 17.6 H Plt Count 258 MPV 9.8 Neut % (Auto) 80.0 H Lymph % (Auto) 9.7 L Stanton % (Auto) 9.8 Eos % (Auto) 0.0 Baso % (Auto) 0.5 Neut # 4.6 Lymph # 0.6 L Stanton # 0.6 Eos # 0.0 Baso # 0.0 Neutrophils % (Manual) 69 Band Neutrophils % 10 H Lymphocytes % (Manual) 10 L Reactive Lymphs % 1 H Monocytes % (Manual) 10 Platelet Estimate Normal Large Platelets Present Giant Platelets Present Poikilocytosis (manual Slight Anisocytosis (manual) Moderate Microcytosis (manual) Slight Macrocytosis (manual) Slight Spherocytes Slight Ovalocytes Slight Jude Cells Moderate Acanthocytes (Spur) Slight Schistocytes Slight Retic Count PT 13.8 H INR 1.2 APTT 45.1 H pCO2 pO2 HCO3 ABG pH ABG Total CO2 ABG O2 Saturation ABG O2 Content ABG Base Excess ABG Hemoglobin ABG Carboxyhemoglobin POC ABG HHb (Measured) ABG Methemoglobin ABG O2 Capacity Andry Test ABG Potassium VBG pH VBG pCO2 VBG HCO3 VBG Total CO2 VBG O2 Sat (Calc) VBG Base Excess VBG Potassium A-a O2 Difference Hgb O2 Saturation Sodium Chloride Glucose Lactate Vent Mode Mechanical Rate FiO2 Inspiratory BiPAP Expiratory BiPAP Crit Value Called To Crit Value Called By Crit Value Read Back Blood Gas Notified Time Potassium Carbon Dioxide Anion Gap BUN Creatinine Est GFR ( Amer) Est GFR (Non-Af Amer) POC Glucose (mg/dL) Random Glucose Lactic Acid Calcium Phosphorus Magnesium Total Bilirubin AST ALT Alkaline Phosphatase Troponin I NT-Pro-B Natriuret Pep Total Protein Albumin Globulin Albumin/Globulin Ratio Arterial Blood Potassium Venous Blood Potassium Urine Color Urine Clarity Urine pH Ur Specific [place] Urine Protein Urine Glucose (UA) Urine Ketones Urine Blood Urine Nitrate Urine Bilirubin Urine Urobilinogen Ur Leukocyte Esterase Urine RBC (Auto) Urine Microscopic WBC Ur Squamous Epith Cells Urine Bacteria Hyaline Casts Influenza Typ A,B (EIA) Negative for flu a/b 06/22/17 06/22/17 06/22/17 20:35 20:49 20:52 WBC RBC Hgb Hct MCV MCH MCHC RDW Plt Count MPV Neut % (Auto) Lymph % (Auto) Stanton % (Auto) Eos % (Auto) Baso % (Auto) Neut # Lymph # Stanton # Eos # Baso # Neutrophils % (Manual) Band Neutrophils % Lymphocytes % (Manual) Reactive Lymphs % Monocytes % (Manual) Platelet Estimate Large Platelets Giant Platelets Poikilocytosis (manual Anisocytosis (manual) Microcytosis (manual) Macrocytosis (manual) Spherocytes Ovalocytes Jude Cells Acanthocytes (Spur) Schistocytes Retic Count PT INR APTT pCO2 73 H* pO2 53 HCO3 15.8 L ABG pH 7.06 L* ABG Total CO2 22.9 ABG O2 Saturation 85.3 L ABG O2 Content ABG Base Excess -10.8 L ABG Hemoglobin ABG Carboxyhemoglobin POC ABG HHb (Measured) ABG Methemoglobin ABG O2 Capacity Andry Test Yes ABG Potassium 4.5 VBG pH 7.06 L* VBG pCO2 73 H* VBG HCO3 15.8 VBG Total CO2 22.9 VBG O2 Sat (Calc) 85.3 H VBG Base Excess -10.8 L VBG Potassium 4.5 A-a O2 Difference Hgb O2 Saturation Sodium 147.0 Chloride 121.0 H Glucose 200 H Lactate 0.4 L Vent Mode Mechanical Rate FiO2 21.0 Inspiratory BiPAP Expiratory BiPAP Crit Value Called To aliza Tanner md Crit Value Called By 60 Crit Value Read Back Y Blood Gas Notified Time 2051 Potassium Carbon Dioxide Anion Gap BUN Creatinine Est GFR ( Amer) Est GFR (Non-Af Amer) POC Glucose (mg/dL) Random Glucose Lactic Acid 0.5 L Calcium Phosphorus Magnesium Total Bilirubin AST ALT Alkaline Phosphatase Troponin I NT-Pro-B Natriuret Pep Total Protein Albumin Globulin Albumin/Globulin Ratio Arterial Blood Potassium 4.5 Venous Blood Potassium 4.5 Urine Color Yellow Urine Clarity Cloudy Urine pH 6.0 Ur Specific [place] 1.018 Urine Protein >=500 Urine Glucose (UA) >=500 Urine Ketones Trace Urine Blood Moderate Urine Nitrate Positive H Urine Bilirubin Negative Urine Urobilinogen 0.2-1.0 Ur Leukocyte Esterase Neg Urine RBC (Auto) 4 H Urine Microscopic WBC 12 H Ur Squamous Epith Cells < 1 Urine Bacteria Rare Hyaline Casts 3-5 H Influenza Typ A,B (EIA) 06/22/17 06/22/17 06/22/17 21:00 21:55 22:42 WBC RBC Hgb Hct MCV MCH MCHC RDW Plt Count MPV Neut % (Auto) Lymph % (Auto) Stanton % (Auto) Eos % (Auto) Baso % (Auto) Neut # Lymph # Stanton # Eos # Baso # Neutrophils % (Manual) Band Neutrophils % Lymphocytes % (Manual) Reactive Lymphs % Monocytes % (Manual) Platelet Estimate Large Platelets Giant Platelets Poikilocytosis (manual Anisocytosis (manual) Microcytosis (manual) Macrocytosis (manual) Spherocytes Ovalocytes Jude Cells Acanthocytes (Spur) Schistocytes Retic Count PT INR APTT pCO2 61 H 54 H pO2 406 H 95 HCO3 16.1 L 17.4 L ABG pH 7.09 L* 7.15 L* ABG Total CO2 20.4 L 20.5 L ABG O2 Saturation 100.1 H 98.6 H ABG O2 Content 14.9 L 12.1 L ABG Base Excess -11.3 L -9.7 L ABG Hemoglobin 10.2 L 8.9 L ABG Carboxyhemoglobin 2.0 H 2.1 H POC ABG HHb (Measured) -0.1 L 1.4 ABG Methemoglobin 1.9 0.8 ABG O2 Capacity 14.9 L 12.3 L Andry Test Yes Yes ABG Potassium VBG pH VBG pCO2 VBG HCO3 VBG Total CO2 VBG O2 Sat (Calc) VBG Base Excess VBG Potassium A-a O2 Difference 231.0 194.0 Hgb O2 Saturation 96.2 95.8 Sodium Chloride Glucose Lactate Vent Mode Bipap Mechanical Rate 14 12 FiO2 100.0 50.0 Inspiratory BiPAP 12 12 Expiratory BiPAP 5 5 Crit Value Called To Aliza smart Crit Value Called By [id number] Crit Value Read Back Y Y Blood Gas Notified Time 2102 2244 Potassium Carbon Dioxide Anion Gap BUN Creatinine Est GFR ( Amer) Est GFR (Non-Af Amer) POC Glucose (mg/dL) Random Glucose Lactic Acid Calcium Phosphorus Magnesium Total Bilirubin AST ALT Alkaline Phosphatase Troponin I < 0.0120 NT-Pro-B Natriuret Pep Total Protein Albumin Globulin Albumin/Globulin Ratio Arterial Blood Potassium Venous Blood Potassium Urine Color Urine Clarity Urine pH Ur Specific [place] Urine Protein Urine Glucose (UA) Urine Ketones Urine Blood Urine Nitrate Urine Bilirubin Urine Urobilinogen Ur Leukocyte Esterase Urine RBC (Auto) Urine Microscopic WBC Ur Squamous Epith Cells Urine Bacteria Hyaline Casts Influenza Typ A,B (EIA) 06/22/17 06/23/17 06/23/17 22:52 04:30 06:40 WBC 2.8 L D RBC 2.65 L Hgb 8.1 L D Hct 25.3 L MCV 95.4 H MCH 30.6 MCHC 32.1 L RDW 17.5 H Plt Count 206 MPV Neut % (Auto) Lymph % (Auto) Stanton % (Auto) Eos % (Auto) Baso % (Auto) Neut # Lymph # Stanton # Eos # Baso # Neutrophils % (Manual) Band Neutrophils % Lymphocytes % (Manual) Reactive Lymphs % Monocytes % (Manual) Platelet Estimate Large Platelets Giant Platelets Poikilocytosis (manual Anisocytosis (manual) Microcytosis (manual) Macrocytosis (manual) Spherocytes Ovalocytes Gore Cells Acanthocytes (Spur) Schistocytes Retic Count PT INR APTT pCO2 31 L pO2 83 HCO3 17.8 L ABG pH 7.32 L ABG Total CO2 17.0 L ABG O2 Saturation 98.2 H ABG O2 Content 12.8 L ABG Base Excess -9.1 L ABG Hemoglobin 9.4 L ABG Carboxyhemoglobin 1.2 POC ABG HHb (Measured) 1.8 ABG Methemoglobin 1.3 ABG O2 Capacity 13.0 L Andry Test Yes ABG Potassium VBG pH VBG pCO2 VBG HCO3 VBG Total CO2 VBG O2 Sat (Calc) VBG Base Excess VBG Potassium A-a O2 Difference 235.0 Hgb O2 Saturation 95.7 Sodium Chloride Glucose Lactate Vent Mode Bipap Mechanical Rate 12 FiO2 50.0 Inspiratory BiPAP 12 Expiratory BiPAP 5 Crit Value Called To Crit Value Called By Crit Value Read Back Blood Gas Notified Time Potassium Carbon Dioxide Anion Gap BUN Creatinine Est GFR ( Amer) Est GFR (Non-Af Amer) POC Glucose (mg/dL) 172 H Random Glucose Lactic Acid Calcium Phosphorus Magnesium Total Bilirubin AST ALT Alkaline Phosphatase Troponin I NT-Pro-B Natriuret Pep Total Protein Albumin Globulin Albumin/Globulin Ratio Arterial Blood Potassium Venous Blood Potassium Urine Color Urine Clarity Urine pH Ur Specific [place] Urine Protein Urine Glucose (UA) Urine Ketones Urine Blood Urine Nitrate Urine Bilirubin Urine Urobilinogen Ur Leukocyte Esterase Urine RBC (Auto) Urine Microscopic WBC Ur Squamous Epith Cells Urine Bacteria Hyaline Casts Influenza Typ A,B (EIA) 06/23/17 06/23/17 06/23/17 06:43 07:00 07:30 WBC RBC Hgb Hct MCV MCH MCHC RDW Plt Count MPV Neut % (Auto) Lymph % (Auto) Stanton % (Auto) Eos % (Auto) Baso % (Auto) Neut # Lymph # Stanton # Eos # Baso # Neutrophils % (Manual) Band Neutrophils % Lymphocytes % (Manual) Reactive Lymphs % Monocytes % (Manual) Platelet Estimate Large Platelets Giant Platelets Poikilocytosis (manual Anisocytosis (manual) Microcytosis (manual) Macrocytosis (manual) Spherocytes Ovalocytes Gore Cells Acanthocytes (Spur) Schistocytes Retic Count PT INR APTT pCO2 pO2 HCO3 ABG pH ABG Total CO2 ABG O2 Saturation ABG O2 Content ABG Base Excess ABG Hemoglobin ABG Carboxyhemoglobin POC ABG HHb (Measured) ABG Methemoglobin ABG O2 Capacity Andry Test ABG Potassium VBG pH VBG pCO2 VBG HCO3 VBG Total CO2 VBG O2 Sat (Calc) VBG Base Excess VBG Potassium A-a O2 Difference Hgb O2 Saturation Sodium 147 Chloride 122 H Glucose Lactate Vent Mode Mechanical Rate FiO2 Inspiratory BiPAP Expiratory BiPAP Crit Value Called To Crit Value Called By Crit Value Read Back Blood Gas Notified Time Potassium 4.4 Carbon Dioxide 19 L Anion Gap 10 BUN 76 H Creatinine 2.7 H Est GFR ( Amer) 29 Est GFR (Non-Af Amer) 24 POC Glucose (mg/dL) 132 H Random Glucose 149 H Lactic Acid 0.7 Calcium 7.7 L Phosphorus Magnesium Total Bilirubin < 0.1 L AST 71 H D ALT 58 Alkaline Phosphatase 133 H D Troponin I < 0.0120 NT-Pro-B Natriuret Pep Total Protein 4.9 L Albumin 2.1 L D Globulin 2.7 Albumin/Globulin Ratio 0.8 L Arterial Blood Potassium Venous Blood Potassium Urine Color Urine Clarity Urine pH Ur Specific [place] Urine Protein Urine Glucose (UA) Urine Ketones Urine Blood Urine Nitrate Urine Bilirubin Urine Urobilinogen Ur Leukocyte Esterase Urine RBC (Auto) Urine Microscopic WBC Ur Squamous Epith Cells Urine Bacteria Hyaline Casts Influenza Typ A,B (EIA) 06/23/17 06/23/17 09:30 11:05 WBC RBC Hgb Hct MCV MCH MCHC RDW Plt Count MPV Neut % (Auto) Lymph % (Auto) Stanton % (Auto) Eos % (Auto) Baso % (Auto) Neut # Lymph # Stanton # Eos # Baso # Neutrophils % (Manual) Band Neutrophils % Lymphocytes % (Manual) Reactive Lymphs % Monocytes % (Manual) Platelet Estimate Large Platelets Giant Platelets Poikilocytosis (manual Anisocytosis (manual) Microcytosis (manual) Macrocytosis (manual) Spherocytes Ovalocytes Jude Cells Acanthocytes (Spur) Schistocytes Retic Count 5.4 H D PT INR APTT pCO2 pO2 HCO3 ABG pH ABG Total CO2 ABG O2 Saturation ABG O2 Content ABG Base Excess ABG Hemoglobin ABG Carboxyhemoglobin POC ABG HHb (Measured) ABG Methemoglobin ABG O2 Capacity Andry Test ABG Potassium VBG pH VBG pCO2 VBG HCO3 VBG Total CO2 VBG O2 Sat (Calc) VBG Base Excess VBG Potassium A-a O2 Difference Hgb O2 Saturation Sodium Chloride Glucose Lactate Vent Mode Mechanical Rate FiO2 Inspiratory BiPAP Expiratory BiPAP Crit Value Called To Crit Value Called By Crit Value Read Back Blood Gas Notified Time Potassium Carbon Dioxide Anion Gap BUN Creatinine Est GFR ( Amer) Est GFR (Non-Af Amer) POC Glucose (mg/dL) 114 H Random Glucose Lactic Acid Calcium Phosphorus Magnesium Total Bilirubin AST ALT Alkaline Phosphatase Troponin I NT-Pro-B Natriuret Pep Total Protein Albumin Globulin Albumin/Globulin Ratio Arterial Blood Potassium Venous Blood Potassium Urine Color Urine Clarity Urine pH Ur Specific [place] Urine Protein Urine Glucose (UA) Urine Ketones Urine Blood Urine Nitrate Urine Bilirubin Urine Urobilinogen Ur Leukocyte Esterase Urine RBC (Auto) Urine Microscopic WBC Ur Squamous Epith Cells Urine Bacteria Hyaline Casts Influenza Typ A,B (EIA) Assessment & Plan - Assessment and Plan (Free Text) Plan: AMS: check Utox, check CT head, upon sternal rub patient awakens but goes back to sleep suspect benzo or opoid induced AMS, cannot rule out acute intracranial processes -Hypercapneic respiratory failure: suspect 2nd intoxication, unknown substance, continue bi-pap to keep spo2 >92 -Leukopenia: possible initial sepsis, lactic normal, no fevers, empirically on ABX -CKD: obtain nephology consult regarding possible AV fistula for future HD indication, consult IR for tunneled catheter -Pleural effusion: continue negative balance with lasix, consider bumex -Monoclonal gamopathy/Anemia: possibel plasmacytoma vs. MM, consider heme/onc consult -COPD: continue bronchodialtors -Chronic diastolic heart failure (last echo EF 60%): continue negative balance, not a candidate for ACEi 2nd renal failure, consider asa, and AV tarah tamara -place peripheral line and d/c femoral line -continue DVt/PUD ppx -if patient does not wake up despite narcan, consider CT head and possible EEG ( subclinical seizures) cc time 45 minutes - Date & Time Date: 06/23/17 Time: 12:30
[2017-06-23] MEDS ORDERED: Naloxone 0.4 mg/ml Inj (Adult) IVP ONE (12:15)
[2017-06-23 12:47] LABS: BARBITURATES, UR NEGATIVE (NEGATIVE); BENZODIAZEPINES, UR NEGATIVE (NEGATIVE); OPIATES, UR NEGATIVE (NEGATIVE); PHENCYCLIDINE, UR NEGATIVE (NEGATIVE)
[2017-06-23 13:09] LABS: BASO % 0.4 % (0.0-2.0); EOS % 0.5 % (0.0-4.0); HEMOGLOBIN 8.6 g/dL (12.0-18.0); LYMPH # 0.4 K/uL (1.0-4.3); LYMPH % 5.5 % (20.0-40.0); MEAN CELL VOLUME 94.9 fl (80.0-94.0); MEAN CORPUSCULAR HEMOGLOBIN 31.4 pg (27.0-31.0); MEAN PLATELET VOLUME 10.4 fl (7.2-11.7); MONO # 0.6 K/uL (0.0-0.8); MONO % 8.3 % (0.0-10.0); NEUT # 5.7 K/uL (1.8-7.0); NEUT % 85.3 % (50.0-75.0); NRBC % 0.8 % (0.0-0.0); RBC 2.74 Mil/uL (4.40-5.90); RED CELL DISTRIBUTION WIDTH 18.3 % (11.5-14.5)
[2017-06-23 13:17] LABS: WHITE BLOOD COUNT 6.7 K/uL (4.8-10.8)
[2017-06-23] MEDS: Enoxaparin 30 mg Syringe SC SCH (16:17)
[2017-06-23] MEDS: EPOETIN ALFA 10,000 UNIT/ML ML SC SCH (16:18)
--- NOTE | 2017-06-23 21:14 | CON ---
HISTORY OF PRESENT ILLNESS: Mr. Durand is a 66-year-old male, who is referred for pulmonary evaluation by Dr. Kelley. He was admitted because of generalized malaise and lethargy with respiratory failure, requiring BiPAP therapy. He is unable to give any history, but he is easily arousable on deep palpation of the chest wall. PAST MEDICAL HISTORY: He has a past medical history of hypertension, diabetes mellitus, chronic kidney disease, chronic persistent left pleural effusion with nephrotic syndrome, anemia, and edema of lower extremities. No history was obtained from the patient. PHYSICAL EXAMINATION: GENERAL: The patient is easily arousable. He is presently on BiPAP and is maintaining good oxygenation on BiPAP. VITAL SIGNS: Blood pressure 114/62 with a pulse of 85, respiratory rate up to 36 per minute, and O2 sat 96% on BiPAP. SKIN: Shows poor turgor. HEENT: Pupils are equal and reactive to light and accommodation. Mouth shows poor hygiene. NECK: JVP flat. LUNGS: Poor aeration bilaterally with rales. Left basal dullness appreciated. HEART: S1, S2. ABDOMEN: Soft with ascites. EXTREMITIES: Show 2+ pitting pedal edema. CENTRAL NERVOUS SYSTEM: Could not be easily evaluated because of the patient's clinical cognition. LABORATORY DATA: Chest x-ray is remarkable for left pleural effusion, bibasilar atelectasis, atherosclerotic aortic calcification, cardiomegaly. WBC 2.8, hemoglobin 8.1, platelet count 206,000. Sodium 147, potassium 4.4, BUN 76, creatinine 2.7, and serum glucose 149. ProBNP 3500 and troponin less than 0.012. ABG with questionable FiO2, pH is 7.32, pCO2 of 31, and pO2 of 83, O2 sat 98.2%. EKG: Sinus bradycardia with first-degree AV block, prolonged QT. IMPRESSION: A 66-year-old male with chronic renal failure and respiratory failure with pleural effusion and lethargy. Clinical picture is compatible with respiratory failure due to multiorgan disease including nephrotic syndrome and pleural effusion. One has to rule out some form of substance ingestion including alcohol, drugs. PLAN: Continue therapy with BiPAP. Septic workup is already done. Adequate oxygenation. Pleural effusion is probably secondary to chronic renal disease and nephrotic syndrome. We will continue to monitor for now. No need for thoracentesis unless clinical picture does not improve. We will continue to follow with you. Laron Raymond MD
--- NOTE | 2017-06-24 00:37 | CON ---
DATE: NEPHROLOGY CONSULTATION LOCATION: [facility]. HISTORY OF PRESENT ILLNESS: This 66-year-old homeless male with past medical history of hypertension, diabetes, CKD stage IIIB, depression and monoclonal gammopathy and recurrent pleural effusion, found obtunded in a garage and admitted yesterday. The patient found to be markedly hypercapnic and placed on BiPAP. Nephrology is being consulted for advanced CKD care. The patient just discharged about one week ago for recurrent left pleural effusion with 1.6 liters drain during thoracentesis. The patient at that time also had uncontrolled hypertension, but was able to be discharged on an extensive antihypertensive regimen with the understanding that the patient likely will not have adequate access to outpatient meds. Further history is unobtainable from the patient at this time. The patient is admitted to ICU, first on BiPAP with improvement in hypercapnia, and also being treated for sepsis with IV antibiotics. PAST MEDICAL HISTORY: As above. The patient with IgA predominant kappa monoclonal gammopathy, status post renal biopsy in 04/2017 with biopsy results consistent with diabetic nephropathy as well as associated FSGS changes, CHF with mild systolic and diastolic dysfunction, recurrent left pleural effusion. FAMILY HISTORY: Unobtainable. SOCIAL HISTORY: Previously reported to have smoked 10 cigarettes per day. REVIEW OF SYSTEMS: As per HPI. Otherwise unobtainable at this point due to the patient being obtunded. PHYSICAL EXAMINATION GENERAL: The patient is minimally arousable to verbal stimuli, mildly agitated during exam. VITAL SIGNS: This morning blood pressure 124/65, heart rate 83, respirations 37, temperature is 98, O2 sat 98% on 50% FiO2 via BiPAP . HEENT: Moist mucous membranes, nonicteric. No cervical lymphadenopathy. RESPIRATORY: Decreased breath sounds at bilateral bases. The patient is tachypneic. CARDIOVASCULAR: Heart sounds, S1 and S2 normal. No murmurs, no gallops, no rubs. GASTROINTESTINAL: Abdomen is mildly tender and mildly distended. GENITOURINARY: Salazar catheter in place. EXTREMITIES: Anasarca, marked bilateral lower leg edema extending to upper thighs. SKIN: Warm. No cyanosis of distal extremities. NEURO: The patient is arousable, but not following commands. LABORATORY DATA: CBC: WBC 2.8, hemoglobin 8.1, hematocrit 25.3, platelets 206. Chemistry panel: Sodium 147, potassium 4.4, chloride 122, bicarb 19, BUN 76, creatinine 2.7, glucose 149, calcium 7.7, albumin 2.1. ABG done this morning, pH 7.32, pCO2 of 31, decreased from 73 on presentation, pO2 of 83 on 50% FiO2. UA: Urine protein greater than 500 mg/dL, glucose greater than 500 mg/dL, nitrate positive, blood moderate, 4 rbc's per high-power field, 12 wbc's per high-power field. Chest x-ray directly visualized, bilateral haziness at bases noted - greater on left. ASSESSMENT AND PLAN: 1. Chronic kidney disease stage IIIB. The patient with biopsy proven diabetic nephropathy with significantly worsening renal function over the past 8 months. Biopsy findings notable for FSGS changes with diffuse portal site effacement on electron microscopy which explains the patient's nephrotic syndrome; question is whether there is any other primary process going on other than diabetic nephropathy. High suspicion was present for monoclonal gammopathy causing renal failure; however, immunofluorescence staining on renal biopsy was completely negative for any such deposition. The mainstay of treatment at this point is KEVIN blockade as tolerated and blood pressure control. Avoid nephrotoxic agents. Need to be careful to not over-diurese the patient and need to strike a balance between congestive heart failure status and renal failure. 2. Acute kidney injury. The patient continues to have worsening of renal function due primarily to causes mentioned above. We will check urine lytes to look for any prerenal etiology. The patient had previously been taking extensive amount of NSAIDs, which may also explain FSGS findings on biopsy. It was explained to the patient previously to stop all NSAID use. 3. Hypertensive chronic kidney disease, currently with blood pressure on lower side of normal (otherwise the patient with uncontrolled hypertension, on multiple antihypertensive agents). Agree with holding antihypertensive meds for now. 4. Hypercapnic respiratory failure. Hypercapnia currently improved on BiPAP. Etiology is suspected drug use. Awaiting urine toxicology. Agree with Narcan for now. 5. Mild non-gap metabolic acidosis due to advanced renal failure. Will eventually need to be on bicarb replacement p.o. 6. Anemia of chronic kidney disease. Iron studies recently showed the patient was iron replete. We will restart EPO 10,000 units q. 48 hours; 7. Congestive heart failure. The patient with recurrent pleural effusion secondary to both congestive heart failure as well as contributed to by nephrotic syndrome. The patient needs to be standing diuretics as outpatient as well as KEVIN blockade to help prevent reaccumulation of pleural fluid. Has been having issues with hyperkalemia and therefore doses need to be started slowly and titrated upward as tolerated. 8. Chronic kidney disease mineral bone disease. The patient with mild secondary hyperparathyroidism of chronic kidney disease. We will restart ergocalciferol 50,000 units weekly. 9. Sepsis. The patient is currently on vancomycin 1.25 g dosed q. 24 hours as well as Zosyn 2.25 g q. 6 hours. We will check random vancomycin level before next dose to avoid vancomycin toxicity. Thank you for this consult. We will be following up closely. Fam Luz MD
[2017-06-24 05:41] LABS: BASO % 0.5 % (0.0-2.0); EOS % 0.1 % (0.0-4.0); HEMOGLOBIN 8.3 g/dL (12.0-18.0); LYMPH # 0.8 K/uL (1.0-4.3); LYMPH % 10.9 % (20.0-40.0); MEAN CELL VOLUME 95.7 fl (80.0-94.0); MEAN CORPUSCULAR HGB CONC 32.4 g/dL (33.0-37.0); MEAN PLATELET VOLUME 10.5 fl (7.2-11.7); MONO # 0.7 K/uL (0.0-0.8); MONO % 9.4 % (0.0-10.0); NEUT # 5.7 K/uL (1.8-7.0); NEUT % 79.1 % (50.0-75.0); NRBC % 0.7 % (0.0-0.0); RBC 2.68 Mil/uL (4.40-5.90); RED CELL DISTRIBUTION WIDTH 18.9 % (11.5-14.5); WHITE BLOOD COUNT 7.2 K/uL (4.8-10.8)
[2017-06-24 05:55] LABS: ALB/GLOB RATIO 0.9 (1.0-2.1); ALBUMIN 2.6 g/dL (3.5-5.0); CALCIUM 7.8 mg/dL (8.4-10.2)
[2017-06-24 06:07] LABS: ABG ALLEN TEST YES; ARTERIAL BLOOD GAS HCO3 16.5 mmol/L (21-28); ARTERIAL BLOOD GAS O2 SAT 98.7 % (95-98); ARTERIAL BLOOD GAS PCO2 34 mm/Hg (35-45); ARTERIAL BLOOD GAS PH 7.26 (7.35-7.45); ARTERIAL BLOOD GAS PO2 100 mm/Hg (80-100); ARTERIAL BLOOD GAS TCO2 16.3 mmol/L (22-28)
--- NOTE | 2017-06-24 08:24 | CP.PCM.PN ---
Subjective - Date & Time of Evaluation Date of Evaluation: 06/24/17 Time of Evaluation: 08:24 - Subjective Subjective: MORE AWAKE AND ALERT TODAY STILL ON BIPAP O2 SAT--100% Objective - Vital Signs/Intake and Output Vital Signs (last 24 hours): Temp Pulse Resp BP Pulse Ox 97.6 F 64 21 134/73 96 06/24/17 04:00 06/24/17 06:00 06/24/17 06:00 06/24/17 06:00 06/24/17 06:00 Intake and Output: 06/24/17 06/24/17 06:59 18:59 Intake Total 0 Balance 0 - Medications Medications: Current Medications Albuterol/Ipratropium (Duoneb 3 Mg/0.5 Mg (3 Ml) Ud) 3 ml INH RQ4 PRN PRN Reason: Shortness of Breath Clopidogrel Bisulfate (Plavix) 75 mg PO DAILY THOMAS Dextrose (Dextrose 50% Inj) 0 ml IV STAT PRN; Protocol PRN Reason: Hypoglycemia Protocol Dextrose (Glutose 15) 0 gm PO ONCE PRN; Protocol PRN Reason: Hypoglycemia Protocol Enoxaparin Sodium (Lovenox) 30 mg SC DAILY THOMAS PRN Reason: Protocol Last Admin: 06/23/17 16:17 Dose: 30 mg Epoetin Roel (Procrit) 10,000 unit SC MWF THOMAS Last Admin: 06/23/17 16:18 Dose: 10,000 unit Ergocalciferol (Drisdol 50,000 Intl Units Cap) 1 cap PO Q7D THOMAS Furosemide (Lasix) 40 mg IV BID THOMAS Glucagon (Glucagen Diagnostic Kit) 0 mg IM STAT PRN; Protocol PRN Reason: Hypoglycemia Protocol Vancomycin HCl 1,250 mg/ (Sodium Chloride) 250 mls @ 166.667 mls/hr IVPB Q24H THOMAS PRN Reason: Protocol Last Admin: 06/23/17 01:04 Dose: 166.667 mls/hr Piperacillin Sod/Tazobactam (Sod 2.25 gm/ Sodium Chloride) 100 mls @ 100 mls/ hr IVPB Q6 THOMAS PRN Reason: Protocol Last Admin: 06/24/17 04:13 Dose: 100 mls/hr Insulin Human Lispro (Humalog) 0 units SC ACHS THOMAS PRN Reason: Protocol Last Admin: 06/23/17 22:00 Dose: Not Given Pantoprazole Sodium (Protonix Inj) 40 mg IVP DAILY THOMAS Last Admin: 06/23/17 08:49 Dose: 40 mg - Labs Labs: 06/24/17 05:15 06/24/17 05:15 PT 13.8 Seconds (9.8-13.1) H 06/22/17 20:33 INR 1.2 (0.9-1.2) 06/22/17 20:33 APTT 45.1 Seconds (25.6-37.1) H 06/22/17 20:33 - Constitutional Appears: Chronically Ill - Head Exam Head Exam: ATRAUMATIC, NORMAL INSPECTION, NORMOCEPHALIC - Eye Exam Eye Exam: EOMI, Normal appearance, PERRL Pupil Exam: NORMAL ACCOMODATION, PERRL - ENT Exam ENT Exam: Mucous Membranes Moist, Normal Exam - Neck Exam Neck Exam: Full ROM, Normal Inspection. absent: Lymphadenopathy - Respiratory Exam Respiratory Exam: Decreased Breath Sounds, Rales, NORMAL BREATHING PATTERN - Cardiovascular Exam Cardiovascular Exam: REGULAR RHYTHM, +S1, +S2. absent: Murmur - GI/Abdominal Exam GI & Abdominal Exam: Soft, Normal Bowel Sounds. absent: Tenderness - Rectal Exam Rectal Exam: NORMAL INSPECTION - Extremities Exam Extremities Exam: Full ROM, Normal Capillary Refill, Normal Inspection, Pedal Edema. absent: Joint Swelling - Back Exam Back Exam: NORMAL INSPECTION - Neurological Exam Neurological Exam: Alert, Awake, CN II-XII Intact, Normal Gait, Oriented x3 - Psychiatric Exam Psychiatric exam: Normal Affect, Normal Mood - Skin Skin Exam: Dry, Intact, Normal Color, Warm Assessment and Plan - Assessment and Plan (Free Text) Assessment: RESPIRATORY FAILURE IMPROVED PLEURAL EFFUSION NEPHROTIC SYNDROME Plan: D/C BIPAP BEGIN O2 VIA NC
[2017-06-24] MEDS: Enoxaparin 30 mg Syringe SC SCH (08:26)
[2017-06-24 08:41] LABS: INR 1.3 (0.9-1.2); PROTHROMBIN TIME 14.7 Seconds (9.8-13.1)
--- NOTE | 2017-06-24 09:21 | CP.PCM.PN ---
<Melissa Vega - Last Filed: 06/24/17 14:54> Subjective - Date & Time of Evaluation Date of Evaluation: 06/24/17 Time of Evaluation: 07:30 - Subjective Subjective: - Patient was seen at bedside off the bipap. Appears more responsive then yesterday, responds to verbal command, however does not appear at baseline. Seems to blank out while being spoken too. - Will order Head CT stat. Objective - Vital Signs/Intake and Output Vital Signs (last 24 hours): Temp Pulse Resp BP Pulse Ox 98.5 F 70 27 H 158/75 H 90 L 06/24/17 08:00 06/24/17 08:00 06/24/17 08:00 06/24/17 08:29 06/24/17 08:00 Intake and Output: 06/24/17 06/24/17 06:59 18:59 Intake Total 0 Balance 0 - Medications Medications: Current Medications Albuterol/Ipratropium (Duoneb 3 Mg/0.5 Mg (3 Ml) Ud) 3 ml INH RQ4 PRN PRN Reason: Shortness of Breath Clopidogrel Bisulfate (Plavix) 75 mg PO DAILY COUNTS INCLUDE 234 BEDS AT THE [facility] Dextrose (Dextrose 50% Inj) 0 ml IV STAT PRN; Protocol PRN Reason: Hypoglycemia Protocol Dextrose (Glutose 15) 0 gm PO ONCE PRN; Protocol PRN Reason: Hypoglycemia Protocol Enoxaparin Sodium (Lovenox) 30 mg SC DAILY THOMAS PRN Reason: Protocol Last Admin: 06/24/17 08:26 Dose: 30 mg Epoetin Roel (Procrit) 10,000 unit SC MWF THOMAS Last Admin: 06/23/17 16:18 Dose: 10,000 unit Ergocalciferol (Drisdol 50,000 Intl Units Cap) 1 cap PO Q7D COUNTS INCLUDE 234 BEDS AT THE [facility] Furosemide (Lasix) 40 mg IV BID COUNTS INCLUDE 234 BEDS AT THE [facility] Last Admin: 06/24/17 08:29 Dose: 40 mg Glucagon (Glucagen Diagnostic Kit) 0 mg IM STAT PRN; Protocol PRN Reason: Hypoglycemia Protocol Vancomycin HCl 1,250 mg/ (Sodium Chloride) 250 mls @ 166.667 mls/hr IVPB Q24H THOMAS PRN Reason: Protocol Last Admin: 06/23/17 01:04 Dose: 166.667 mls/hr Piperacillin Sod/Tazobactam (Sod 2.25 gm/ Sodium Chloride) 100 mls @ 100 mls/ hr IVPB Q6 THOMAS PRN Reason: Protocol Last Admin: 06/24/17 04:13 Dose: 100 mls/hr Insulin Human Lispro (Humalog) 0 units SC ACHS THOMAS PRN Reason: Protocol Last Admin: 06/23/17 22:00 Dose: Not Given Pantoprazole Sodium (Protonix Inj) 40 mg IVP DAILY COUNTS INCLUDE 234 BEDS AT THE [facility] Last Admin: 06/24/17 08:26 Dose: 40 mg - Labs Labs: 06/24/17 05:15 06/24/17 05:15 PT 14.7 Seconds (9.8-13.1) H 06/24/17 07:45 INR 1.3 (0.9-1.2) H 06/24/17 07:45 APTT 45.1 Seconds (25.6-37.1) H 06/22/17 20:33 - Constitutional Appears: No Acute Distress - Head Exam Head Exam: NORMAL INSPECTION - Eye Exam Eye Exam: Normal appearance - Respiratory Exam Respiratory Exam: Rales Additional comments: decreased breath sounds on base of left lung - Cardiovascular Exam Cardiovascular Exam: REGULAR RHYTHM, +S1, +S2 - GI/Abdominal Exam GI & Abdominal Exam: Soft - Extremities Exam Additional comments: 2+ b/l pitting edema - Neurological Exam Neurological Exam: Altered, Awake, CN II-XII Intact Assessment and Plan - Assessment and Plan (Free Text) Assessment: Assessment: 66 yo ,m, PMhx/o HTN,DM,CKD, chronic left pleural effusion, nephrotic syndrome, anemia and chronic pitting edema, who was brought by EMS to the emergency department complaining of generalized weakness admitted for acute respiratory failure, CHF,sepsis Assesment/Plan 1) Acute Respiratory Failure ( Metabolic acidosis) secondary to overload fluids, pleural effusion, Anasarca - Continue Tele monitoring - ABG PH:7.26 CO2:34, HCO3: 16.5. Respiratory acidosis resolving, is becoming more metabolic acidosis. - Pulm has been consulted - D/ C BIPAP, C/W nasal canula -Decrease Lasix 60 BID to Lasix 40 BID (HOLD LASIX ) - Repeat ABG on nasal canula 2) HCAP -recent admission -worsening left pleural effusion -Zosyn ( hold) - Hold Vanco because of worsening renal function -Chest X ray shows pulmonary vascular congestion with small right and moderate left pleural effusions. Left basilar infiltrate not excluded. - Start Rocephin 3) Altered mental status - Head CT: Did not show any acute changes. No hemorrhage noted. - Neuro checks Q2 - Bladder scan: WNL - Start Rocephin - Repeat ABG 4) Sepsis SIRS(hypothermia,tachpnea) plus UTI, pleural effusion -D/C Vanco, zosyn. Currently holding vanco because of nephroxicity -Central line left femoral placed due to hypotension and if needed pressers - with random vanco: 12 - Blood culture x 2 negative - Start Rocephin 5) Acute diastolic CHF secondary to pulmonary edema and fluid overload -ProBNP 3500 -Echo 05/31/17 normal EF 60-65% 6) UTI leukocyturia, nitrates + -urine cx - Start Rocephin 7) Left Pleural effusion -chronic, has had thoracentesis in the past -Chest X ray shows pulmonary vascular congestion with small right and moderate left pleural effusions. Left basilar infiltrate not excluded. 8) Acute in CKD stage 4 - Worsening of CKD from stage 3 to stage 4 secondary to CHINTAN - Prelim renal biopsy results from previous results show: Nephrotic syndrome secondary to Diabetic nephropathy: Advised to continue KEVIN inhibition and DM control. - GFR: 17, BUN/Cr: BUN: 89/ Creatinine: 3.6 - M.6, Phosphorus:9.7 - Hold Vancomycin dosage - Hold Lasix 9) DM -home meds hold -SSI 10) HTN -Continue home meds Coreg 25Q12 11) Anemia of chronic disease - HB: 8.3, HCT: 25.6 12) DVT prophylaxis - Lovenox 30 SC <Rocio Whitt - Last Filed: 06/25/17 07:28> Objective - Vital Signs/Intake and Output Vital Signs (last 24 hours): Temp Pulse Resp BP Pulse Ox 98.3 F 58 L 16 123/68 99 06/25/17 05:39 06/25/17 05:39 06/25/17 05:39 06/25/17 05:39 06/25/17 05:39 Intake and Output: 06/25/17 06/25/17 06:59 18:59 Intake Total 1000 Output Total 120 Balance 880 - Medications Medications: Current Medications Albuterol/Ipratropium (Duoneb 3 Mg/0.5 Mg (3 Ml) Ud) 3 ml INH RQ4 PRN PRN Reason: Shortness of Breath Calcium Acetate (Phoslo) 2,001 mg PO WM COUNTS INCLUDE 234 BEDS AT THE [facility] Last Admin: 06/24/17 18:22 Dose: 2,001 mg Carvedilol (Coreg) 12.5 mg PO Q12 THOMAS Dextrose (Dextrose 50% Inj) 0 ml IV STAT PRN; Protocol PRN Reason: Hypoglycemia Protocol Dextrose (Glutose 15) 0 gm PO ONCE PRN; Protocol PRN Reason: Hypoglycemia Protocol Enoxaparin Sodium (Lovenox) 30 mg SC DAILY THOMAS PRN Reason: Protocol Last Admin: 06/24/17 08:26 Dose: 30 mg Epoetin Roel (Procrit) 10,000 unit SC MWF COUNTS INCLUDE 234 BEDS AT THE [facility] Last Admin: 06/23/17 16:18 Dose: 10,000 unit Ergocalciferol (Drisdol 50,000 Intl Units Cap) 1 cap PO Q7D COUNTS INCLUDE 234 BEDS AT THE [facility] Furosemide (Lasix) 40 mg IV BID COUNTS INCLUDE 234 BEDS AT THE [facility] Last Admin: 06/24/17 08:29 Dose: 40 mg Glucagon (Glucagen Diagnostic Kit) 0 mg IM STAT PRN; Protocol PRN Reason: Hypoglycemia Protocol Vancomycin HCl 1,250 mg/ (Sodium Chloride) 250 mls @ 166.667 mls/hr IVPB Q24H COUNTS INCLUDE 234 BEDS AT THE [facility] PRN Reason: Protocol Last Admin: 06/23/17 01:04 Dose: 166.667 mls/hr Piperacillin Sod/Tazobactam (Sod 2.25 gm/ Sodium Chloride) 100 mls @ 100 mls/ hr IVPB Q6 COUNTS INCLUDE 234 BEDS AT THE [facility] PRN Reason: Protocol Last Admin: 06/24/17 09:00 Dose: 100 mls/hr Ceftriaxone Sodium 1 gm/ (Sodium Chloride) 100 mls @ 100 mls/hr IVPB DAILY COUNTS INCLUDE 234 BEDS AT THE [facility] PRN Reason: Protocol Sodium Chloride (Sodium Chloride 0.9%) 1,000 mls @ 80 mls/hr IV .[id number] COUNTS INCLUDE 234 BEDS AT THE [facility] Stop: 06/25/17 14:03 Last Admin: 06/25/17 04:40 Dose: 80 mls/hr Insulin Human Lispro (Humalog) 0 units SC ACHS COUNTS INCLUDE 234 BEDS AT THE [facility] PRN Reason: Protocol Last Admin: 06/24/17 22:22 Dose: Not Given Pantoprazole Sodium (Protonix Inj) 40 mg IVP DAILY COUNTS INCLUDE 234 BEDS AT THE [facility] Last Admin: 06/24/17 08:26 Dose: 40 mg Thiamine HCl (Vitamin B1 Tab) 100 mg PO BID THOMAS Last Admin: 06/24/17 22:30 Dose: 100 mg - Labs Labs: 06/25/17 05:00 06/25/17 05:00 PT 14.7 Seconds (9.8-13.1) H 06/24/17 07:45 INR 1.3 (0.9-1.2) H 06/24/17 07:45 APTT 45.1 Seconds (25.6-37.1) H 06/22/17 20:33 Attending/Attestation - Attestation I have personally seen and examined this patient.: Yes I have fully participated in the care of the patient.: Yes I have reviewed all pertinent clinical information, including history, physical exam and plan: Yes Notes (Text): 06/25/17 07:25 Attending note - Attestation Patient seen and examined. Case discussed with resident. Patient awake and responds to questions/commands appropiately. Elevated Bun/Cr increase from yesterday. Patient received lasix 60mg iv bid. Findings discussed on rounds. Nephrology consulted and has seen patient. Will hold lasix this am and reinstitute at lower dose. Vancomycin/zosyn dc'd. started on Rocephin positive nitirite/leuks on UA pending urine c/s. Agree with plan.
--- NOTE | 2017-06-24 11:13 | RAD ---
PROCEDURE: CHEST RADIOGRAPH, 1 VIEW HISTORY: pleural effusion COMPARISON: 06/23/2017 FINDINGS: LUNGS: No definite consolidation. Cannot exclude consolidation at lung bases due to superimposed pleural effusions. PLEURA: Bilateral small right and moderate left pleural effusion, grossly unchanged. No pneumothorax. CARDIOVASCULAR: Normal. OSSEOUS STRUCTURES: No significant abnormalities. VISUALIZED UPPER ABDOMEN: Normal. OTHER FINDINGS: None. IMPRESSION: Bilateral pleural effusion, left greater than right. No definite consolidation.
[2017-06-24] MEDS: Insulin Lispro (humaLOG) 100 Units/ml Inj SC SCH ×3 (11:35→22:22)
--- NOTE | 2017-06-24 13:04 | CT ---
PROCEDURE: CT HEAD WITHOUT CONTRAST. HISTORY: acute altered mental status s/p fall COMPARISON: 06/03/2017 TECHNIQUE: Axial computed tomography images were obtained through the head/brain without intravenous contrast. Radiation dose: Total exam DLP = 866.90 mGy-cm. This CT exam was performed using one or more of the following dose reduction techniques: Automated exposure control, adjustment of the mA and/or kV according to patient size, and/or use of iterative reconstruction technique. FINDINGS: HEMORRHAGE: No intracranial hemorrhage. BRAIN: No mass effect or edema. Minimal age-appropriate atrophy. Mild periventricular white matter lucency consistent with chronic microvascular ischemic change. No evidence of acute infarct. VENTRICLES: Unremarkable. No hydrocephalus. CALVARIUM: No fracture. Small left occipital parietal scalp hematoma. PARANASAL SINUSES: Unremarkable as visualized. No significant inflammatory changes. MASTOID AIR CELLS: Unremarkable as visualized. No inflammatory changes. OTHER FINDINGS: None. IMPRESSION: No intracranial hemorrhage. No evidence of acute infarct. Involutional changes consistent with age.
[2017-06-24 13:24] LABS: SQUAMOUS EPITHIAL 1 /hpf (0-5); URINE AMORPHOUS SEDIMENT RARE /ul (<OCC); URINE BILIRUBIN NEGATIVE (NEGATIVE); URINE BLOOD LARGE (NEGATIVE); URINE CLARITY TURBID (Clear); URINE COLOR YELLOW (YELLOW); URINE GLUCOSE (UA) 50 mg/dL (Normal); URINE LEUKOCYTE ESTERASE SMALL Leu/uL (Negative); URINE PROTEIN >=500 mg/dL (NEGATIVE); URINE UROBILINOGEN 0.2-1.0 mg/dL (0.2-1.0)
[2017-06-24] MEDS: Sodium Chloride 0.9% 1,000 ML IV SCH (14:23)
--- NOTE | 2017-06-24 14:51 | CP.PCM.PCO ---
<Ariel Gomes - Last Filed: 06/24/17 14:45> Assessment & Plan - Assessment and Plan (Free Text) Plan: 10: 30 am Patient observed to be agitated upon physical exam during team rounds which was not observed during AM rounds. STAT Head CT negative Neurochecks Q2 cont. pulse ox. monitor 1:30 pm : spoke to nephlaura Luz, bladder scan performed with 0 ml residual vol. in bladder, start NS at 80 ml/hr, check CPK will also obtain repeat ABG since patient weaned off Bipap. Discussed with FM Dr. Whitt and Nephro Dr. Luz <Rocio Whitt - Last Filed: 06/25/17 07:24> Attending/Attestation - Attestation I have fully participated in the care of the patient.: Yes I have reviewed all pertinent clinical information: Yes Notes (Text): 06/25/17 07:24 Case dicussed with resident. agree with findings and plan.
[2017-06-24 17:14] LABS: ABG ALLEN TEST YES; ARTERIAL BLOOD GAS HCO3 15.6 mmol/L (21-28); ARTERIAL BLOOD GAS HEMOGLOBIN 10.6 g/dL (11.7-17.4); ARTERIAL BLOOD GAS O2 CAPACITY 14.8 mL/dL (16-24); ARTERIAL BLOOD GAS O2 CONTENT 14.6 ML/dL (15-23); ARTERIAL BLOOD GAS O2 SAT 98.6 % (95-98); ARTERIAL BLOOD GAS PCO2 35 mm/Hg (35-45); ARTERIAL BLOOD GAS PH 7.23 (7.35-7.45); ARTERIAL BLOOD GAS PO2 115 mm/Hg (80-100); ARTERIAL BLOOD GAS TCO2 15.8 mmol/L (22-28)
--- NOTE | 2017-06-24 21:04 | CP.PCM.PN ---
Subjective - Date & Time of Evaluation Date of Evaluation: 06/24/17 Time of Evaluation: 12:30 - Subjective Subjective: 66 yo M w/ pmh of htn, dm, recurrent L pleural effusion and CKD IIIB w/ nephrotic syndrome, admitted with lethargy, AMS and hypothermia; Patient again agitated today; attempts to verbalize but incoherent; waxing/ waning mental status reported; Objective - Vital Signs/Intake and Output Vital Signs (last 24 hours): Temp Pulse Resp BP Pulse Ox 98.3 F 58 L 16 122/66 97 06/24/17 12:21 06/24/17 16:06 06/24/17 16:06 06/24/17 16:06 06/24/17 16:06 Intake and Output: 06/24/17 06/25/17 18:59 06:59 Intake Total 650 Output Total 200 Balance 450 - Medications Medications: Current Medications Albuterol/Ipratropium (Duoneb 3 Mg/0.5 Mg (3 Ml) Ud) 3 ml INH RQ4 PRN PRN Reason: Shortness of Breath Calcium Acetate (Phoslo) 2,001 mg PO WM [facility] Last Admin: 06/24/17 18:22 Dose: 2,001 mg Carvedilol (Coreg) 25 mg PO Q12 [facility] Last Admin: 06/24/17 10:27 Dose: 25 mg Dextrose (Dextrose 50% Inj) 0 ml IV STAT PRN; Protocol PRN Reason: Hypoglycemia Protocol Dextrose (Glutose 15) 0 gm PO ONCE PRN; Protocol PRN Reason: Hypoglycemia Protocol Enoxaparin Sodium (Lovenox) 30 mg SC DAILY [facility] PRN Reason: Protocol Last Admin: 06/24/17 08:26 Dose: 30 mg Epoetin Roel (Procrit) 10,000 unit SC MWF [facility] Last Admin: 06/23/17 16:18 Dose: 10,000 unit Ergocalciferol (Drisdol 50,000 Intl Units Cap) 1 cap PO Q7D [facility] Furosemide (Lasix) 40 mg IV BID [facility] Last Admin: 06/24/17 08:29 Dose: 40 mg Glucagon (Glucagen Diagnostic Kit) 0 mg IM STAT PRN; Protocol PRN Reason: Hypoglycemia Protocol Vancomycin HCl 1,250 mg/ (Sodium Chloride) 250 mls @ 166.667 mls/hr IVPB Q24H [facility] PRN Reason: Protocol Last Admin: 06/23/17 01:04 Dose: 166.667 mls/hr Piperacillin Sod/Tazobactam (Sod 2.25 gm/ Sodium Chloride) 100 mls @ 100 mls/ hr IVPB Q6 [facility] PRN Reason: Protocol Last Admin: 06/24/17 09:00 Dose: 100 mls/hr Ceftriaxone Sodium 1 gm/ (Sodium Chloride) 100 mls @ 100 mls/hr IVPB DAILY [facility] PRN Reason: Protocol Sodium Chloride (Sodium Chloride 0.9%) 1,000 mls @ 80 mls/hr IV .[id number] [facility] Stop: 06/25/17 14:03 Last Admin: 06/24/17 14:23 Dose: 80 mls/hr Insulin Human Lispro (Humalog) 0 units SC ACHS [facility] PRN Reason: Protocol Last Admin: 06/24/17 17:25 Dose: Not Given Pantoprazole Sodium (Protonix Inj) 40 mg IVP DAILY [facility] Last Admin: 06/24/17 08:26 Dose: 40 mg - Labs Labs: 06/24/17 05:15 06/24/17 05:15 PT 14.7 Seconds (9.8-13.1) H 06/24/17 07:45 INR 1.3 (0.9-1.2) H 06/24/17 07:45 APTT 45.1 Seconds (25.6-37.1) H 06/22/17 20:33 - Constitutional Appears: Non-toxic, No Acute Distress, Agitated - Eye Exam Eye Exam: absent: Scleral icterus - ENT Exam ENT Exam: Mucous Membranes Moist - Respiratory Exam Respiratory Exam: Clear to Ausculation Bilateral. absent: Respiratory Distress - Cardiovascular Exam Cardiovascular Exam: RRR, +S1, +S2 - GI/Abdominal Exam GI & Abdominal Exam: Firm Additional comments: mildly distended; - Extremities Exam Additional comments: moderately edematous upper and lower ext; - Neurological Exam Neurological Exam: Alert, Awake - Psychiatric Exam Additional comments: agitated and not cooperative with exam; - Skin Skin Exam: Warm. absent: Cyanosis Assessment and Plan (1) Acute renal failure Assessment & Plan: CHINTAN on CKD; oligo-anuric renal failure of unclear etiology; patient already prone to ATN insults in the setting of nephrotic syndrome, presented with moderate hypothermia which can cause decreased renal blood flow; Stable volume status (on room air) and with moderate metabolic acidosis from renal failure; no urgent indication to initiate DAY CARE PROVIDER at this time, however, will need to monitor closely; -can give trial of IVF w/ NS at 80 cc/hr -avoid nephrotoxic agents Status: Acute (2) Altered mental status Assessment & Plan: Etiology unclear; head CT unrevealing; doesn't seem consistent with uremic encephalopathy (patient would be somnolent rather than agitated); -check thiamine level Status: Acute (3) SIRS (systemic inflammatory response syndrome) Assessment & Plan: Negative blood cultures; abx switched to ceftriaxone, no renal dose adjustment needed, but urine culture showing gram pos cocci, ID/sensitivity; Status: Acute (4) Nephrotic syndrome Assessment & Plan: Secondary to diabetic nephropathy 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
--- NOTE | 2017-06-24 21:28 | CP.PCM.PCO ---
Physician Communication Note - Physician Communication Note Physician Communication Note: Patient re-assessed at bedside for report of AMS observed during AM shift. Assessment & Plan - Assessment and Plan (Free Text) Assessment: Patient seen and examined at bedside. Awake , alert, following commands ( squeeze my hands, cranial nerve testing), oriented to person. Not oriented to time or place. Answering questions, was able to state his friends name "Valeriy" whom is his emergency contact. During physical exam patient verbalized discomfort to palpation of left lower extremity and guarded my hand from abdominal exam stating "it tickles". Plan: Will continue with neuro checks Q2, IV hydration, monitor intake and output. - Date & Time Date: 06/24/17 Time: 20:00
[2017-06-25] MEDS: Sodium Chloride 0.9% 1,000 ML IV SCH (04:40)
[2017-06-25 05:57] LABS: HEMOGLOBIN 7.8 g/dL (12.0-18.0); MEAN CELL VOLUME 95.8 fl (80.0-94.0); MEAN CORPUSCULAR HEMOGLOBIN 30.9 pg (27.0-31.0); MEAN CORPUSCULAR HGB CONC 32.3 g/dL (33.0-37.0); RBC 2.53 Mil/uL (4.40-5.90); WHITE BLOOD COUNT 8.1 K/uL (4.8-10.8)
[2017-06-25 06:18] LABS: ALB/GLOB RATIO 0.9 (1.0-2.1); ALBUMIN 2.4 g/dL (3.5-5.0); ALT/SGPT 56 U/L (21-72); AST/SGOT 27 U/L (17-59); CALCIUM 8.1 mg/dL (8.4-10.2); GFR AFRICAN-AMERICAN 18; GFR NON-AFRICAN AMERICAN 15
[2017-06-25 06:26] LABS: BLOOD UREA NITROGEN 96 mg/dl (9-20)
--- NOTE | 2017-06-25 07:38 | CP.PCM.PN ---
<Melissa Vega - Last Filed: 06/25/17 09:04> Subjective - Date & Time of Evaluation Date of Evaluation: 06/25/17 Time of Evaluation: 07:30 - Subjective Subjective: 66 YO M seen at bedside. Appears to be doing better today. Is able to maintain eye contact and concersate. Follows commands. Denies any overnight events. - Denies any chest pain, SOB, nausea, vomiting, abdominal pain. Objective - Vital Signs/Intake and Output Vital Signs (last 24 hours): Temp Pulse Resp BP Pulse Ox 98.3 F 58 L 16 123/68 99 06/25/17 05:39 06/25/17 05:39 06/25/17 05:39 06/25/17 05:39 06/25/17 05:39 Intake and Output: 06/25/17 06/25/17 06:59 18:59 Intake Total 1000 Output Total 120 Balance 880 - Medications Medications: Current Medications Albuterol/Ipratropium (Duoneb 3 Mg/0.5 Mg (3 Ml) Ud) 3 ml INH RQ4 PRN PRN Reason: Shortness of Breath Calcium Acetate (Phoslo) 2,001 mg PO WM [facility] Last Admin: 06/24/17 18:22 Dose: 2,001 mg Carvedilol (Coreg) 12.5 mg PO Q12 [facility] Dextrose (Dextrose 50% Inj) 0 ml IV STAT PRN; Protocol PRN Reason: Hypoglycemia Protocol Dextrose (Glutose 15) 0 gm PO ONCE PRN; Protocol PRN Reason: Hypoglycemia Protocol Enoxaparin Sodium (Lovenox) 30 mg SC DAILY [facility] PRN Reason: Protocol Last Admin: 06/24/17 08:26 Dose: 30 mg Epoetin Roel (Procrit) 10,000 unit SC MWF [facility] Last Admin: 06/23/17 16:18 Dose: 10,000 unit Ergocalciferol (Drisdol 50,000 Intl Units Cap) 1 cap PO Q7D [facility] Furosemide (Lasix) 40 mg IV BID [facility] Last Admin: 06/24/17 08:29 Dose: 40 mg Glucagon (Glucagen Diagnostic Kit) 0 mg IM STAT PRN; Protocol PRN Reason: Hypoglycemia Protocol Vancomycin HCl 1,250 mg/ (Sodium Chloride) 250 mls @ 166.667 mls/hr IVPB Q24H [facility] PRN Reason: Protocol Last Admin: 06/23/17 01:04 Dose: 166.667 mls/hr Piperacillin Sod/Tazobactam (Sod 2.25 gm/ Sodium Chloride) 100 mls @ 100 mls/ hr IVPB Q6 [facility] PRN Reason: Protocol Last Admin: 06/24/17 09:00 Dose: 100 mls/hr Ceftriaxone Sodium 1 gm/ (Sodium Chloride) 100 mls @ 100 mls/hr IVPB DAILY [facility] PRN Reason: Protocol Sodium Chloride (Sodium Chloride 0.9%) 1,000 mls @ 80 mls/hr IV .[id number] [facility] Stop: 06/25/17 14:03 Last Admin: 06/25/17 04:40 Dose: 80 mls/hr Insulin Human Lispro (Humalog) 0 units SC ACHS [facility] PRN Reason: Protocol Last Admin: 06/24/17 22:22 Dose: Not Given Pantoprazole Sodium (Protonix Inj) 40 mg IVP DAILY [facility] Last Admin: 06/24/17 08:26 Dose: 40 mg Thiamine HCl (Vitamin B1 Tab) 100 mg PO BID [facility] Last Admin: 06/24/17 22:30 Dose: 100 mg - Labs Labs: 06/25/17 05:00 06/25/17 05:00 PT 14.7 Seconds (9.8-13.1) H 06/24/17 07:45 INR 1.3 (0.9-1.2) H 06/24/17 07:45 APTT 45.1 Seconds (25.6-37.1) H 06/22/17 20:33 - Constitutional Appears: No Acute Distress - Head Exam Head Exam: NORMAL INSPECTION - Eye Exam Eye Exam: Normal appearance - Respiratory Exam Respiratory Exam: Decreased Breath Sounds, Rales, Rhonchi, Wheezes Additional comments: decreased breath sounds at base of left lung - Cardiovascular Exam Cardiovascular Exam: REGULAR RHYTHM, +S1, +S2 - GI/Abdominal Exam GI & Abdominal Exam: Soft, Normal Bowel Sounds. absent: Tenderness - Extremities Exam Extremities Exam: Normal Inspection - Neurological Exam Neurological Exam: Alert, Awake, CN II-XII Intact, Oriented x3 - Skin Skin Exam: Normal Color, Warm Assessment and Plan - Assessment and Plan (Free Text) Assessment: 66 yo ,m, PMhx/o HTN,DM,CKD, chronic left pleural effusion, nephrotic syndrome, anemia and chronic pitting edema, who was brought by EMS to the emergency department complaining of generalized weakness admitted for acute respiratory failure, CHF,sepsis Assesment/Plan 1) Acute Respiratory Failure ( Metabolic acidosis) secondary to overload fluids, pleural effusion, Anasarca - Continue Tele monitoring - Patients metabolic acidosis seems to be worsening secondary to worsening renal function - ABG PH: 7.23, CO2: 35, HCO3:15.6, PO2:115. Will decrease O2 from 3 liters to 2 liters - Pulm has been consulted - C/W nasal canula saturating well -Decrease Lasix 60 BID to Lasix 40 BID (HOLD LASIX b/c of worsening renal function. will discuss with nephro_ - Repeat ABG 2) HCAP -recent admission -worsening left pleural effusion -Zosyn ( hold) - Hold Vanco because of worsening renal function -Chest X ray shows pulmonary vascular congestion with small right and moderate left pleural effusions. Left basilar infiltrate not excluded. - C/W Rocephin 3) Altered mental status - Head CT: Did not show any acute changes. No hemorrhage noted. - Neuro checks Q2 - Bladder scan: WNL - Start Rocephin - Repeat ABG 4) Sepsis SIRS(hypothermia,tachpnea) plus UTI, pleural effusion -D/C Vanco, zosyn. Currently holding vanco because of nephroxicity -Central line left femoral placed due to hypotension and if needed pressers - with random vanco: 12 - Blood culture x 2 negative - Urine culture showed :Gram positive coci >100,000 - C/W Rocephin 5) Acute diastolic CHF secondary to pulmonary edema and fluid overload -ProBNP 3500 -Echo 05/31/17 normal EF 60-65% 6) UTI leukocyturia, nitrates + - Urine Culture: > 100,000 gram positive coci - Start Rocephin 7) Left Pleural effusion -chronic, has had thoracentesis in the past -Chest X ray shows pulmonary vascular congestion with small right and moderate left pleural effusions. Left basilar infiltrate not excluded. 8) Acute in CKD stage 4 - Worsening of CKD from stage 3 to stage 4 secondary to CHINTAN - Prelim renal biopsy results from previous results show: Nephrotic syndrome secondary to Diabetic nephropathy: Advised to continue KEVIN inhibition and DM control. - GFR: 15, BUN/Cr: BUN: 96/ Creatinine: 4.1 - M.6, Phosphorus:9.7 - Hold Vancomycin dosage - Hold Lasix 9) DM -home meds hold -SSI 10) HTN -Continue home meds Coreg Q12 11) Anemia of chronic disease - HB: 8.3, HCT: 25.6 - C/W procrit 12) DVT prophylaxis - Lovenox 30 SC <Rocio Whitt - Last Filed: 06/25/17 11:29> Objective - Vital Signs/Intake and Output Vital Signs (last 24 hours): Temp Pulse Resp BP Pulse Ox 97.4 F L 59 L 20 139/67 100 06/25/17 08:20 06/25/17 08:20 06/25/17 08:20 06/25/17 08:20 06/25/17 08:20 Intake and Output: 06/25/17 06/25/17 06:59 18:59 Intake Total 1000 Output Total 120 Balance 880 - Medications Medications: Current Medications Albuterol/Ipratropium (Duoneb 3 Mg/0.5 Mg (3 Ml) Ud) 3 ml INH RQ4 PRN PRN Reason: Shortness of Breath Calcium Acetate (Phoslo) 2,001 mg PO WM [facility] Last Admin: 06/25/17 10:29 Dose: 2,001 mg Carvedilol (Coreg) 12.5 mg PO Q12 [facility] Last Admin: 06/25/17 10:30 Dose: Not Given Dextrose (Dextrose 50% Inj) 0 ml IV STAT PRN; Protocol PRN Reason: Hypoglycemia Protocol Dextrose (Glutose 15) 0 gm PO ONCE PRN; Protocol PRN Reason: Hypoglycemia Protocol Enoxaparin Sodium (Lovenox) 30 mg SC DAILY [facility] PRN Reason: Protocol Last Admin: 06/25/17 10:31 Dose: Not Given Epoetin Roel (Procrit) 10,000 unit SC MWF [facility] Last Admin: 06/25/17 10:29 Dose: 10,000 unit Ergocalciferol (Drisdol 50,000 Intl Units Cap) 1 cap PO Q7D [facility] Furosemide (Lasix) 40 mg IV BID [facility] Last Admin: 06/24/17 08:29 Dose: 40 mg Glucagon (Glucagen Diagnostic Kit) 0 mg IM STAT PRN; Protocol PRN Reason: Hypoglycemia Protocol Vancomycin HCl 1,250 mg/ (Sodium Chloride) 250 mls @ 166.667 mls/hr IVPB Q24H [facility] PRN Reason: Protocol Last Admin: 06/23/17 01:04 Dose: 166.667 mls/hr Piperacillin Sod/Tazobactam (Sod 2.25 gm/ Sodium Chloride) 100 mls @ 100 mls/ hr IVPB Q6 [facility] PRN Reason: Protocol Last Admin: 06/24/17 09:00 Dose: 100 mls/hr Ceftriaxone Sodium 1 gm/ (Sodium Chloride) 100 mls @ 100 mls/hr IVPB DAILY [facility] PRN Reason: Protocol Last Admin: 06/25/17 10:32 Dose: 100 mls/hr Sodium Chloride (Sodium Chloride 0.9%) 1,000 mls @ 80 mls/hr IV .[id number] [facility] Stop: 06/25/17 14:03 Last Admin: 06/25/17 04:40 Dose: 80 mls/hr Dextrose (Dextrose 5% In Water 1000 Ml) 1,000 mls @ 50 mls/hr IV .Q20H [facility] Stop: 06/26/17 09:37 Insulin Human Lispro (Humalog) 0 units SC ACHS [facility] PRN Reason: Protocol Last Admin: 06/25/17 08:00 Dose: Not Given Pantoprazole Sodium (Protonix Inj) 40 mg IVP DAILY [facility] Last Admin: 06/25/17 10:31 Dose: 40 mg Thiamine HCl (Vitamin B1 Tab) 100 mg PO BID [facility] Last Admin: 06/25/17 10:33 Dose: 100 mg - Labs Labs: 06/25/17 05:00 06/25/17 05:00 PT 14.7 Seconds (9.8-13.1) H 06/24/17 07:45 INR 1.3 (0.9-1.2) H 06/24/17 07:45 APTT 45.1 Seconds (25.6-37.1) H 06/22/17 20:33 Attending/Attestation - Attestation I have personally seen and examined this patient.: Yes I have fully participated in the care of the patient.: Yes I have reviewed all pertinent clinical information, including history, physical exam and plan: Yes Notes (Text): 06/25/17 11:27 Attending Note ATTESTATION Patient seen and examined. patient more awake today. answers questions/follows commands. increased bun/cr. Lasix on hold and gentle hydration as per nephrology cruise consultant. will have thoracentesis today for pleural effusion. Case discussed with resident. Agree with findings and plan.
[2017-06-25] MEDS: Insulin Lispro (humaLOG) 100 Units/ml Inj SC SCH ×4 (08:00→22:26)
[2017-06-25] MEDS ORDERED: NIFEdipine 60 mg ER Tab PO SCH (09:00)
--- NOTE | 2017-06-25 09:29 | CP.PCM.PN ---
Subjective - Date & Time of Evaluation Date of Evaluation: 06/25/17 Time of Evaluation: 09:30 - Subjective Subjective: slight improvement of mental status shortness of breath less Objective - Vital Signs/Intake and Output Vital Signs (last 24 hours): Temp Pulse Resp BP Pulse Ox 97.4 F L 59 L 20 139/67 100 06/25/17 08:20 06/25/17 08:20 06/25/17 08:20 06/25/17 08:20 06/25/17 08:20 Intake and Output: 06/25/17 06/25/17 06:59 18:59 Intake Total 1000 Output Total 120 Balance 880 - Medications Medications: Current Medications Albuterol/Ipratropium (Duoneb 3 Mg/0.5 Mg (3 Ml) Ud) 3 ml INH RQ4 PRN PRN Reason: Shortness of Breath Calcium Acetate (Phoslo) 2,001 mg PO WM [facility] Last Admin: 06/24/17 18:22 Dose: 2,001 mg Carvedilol (Coreg) 12.5 mg PO Q12 [facility] Dextrose (Dextrose 50% Inj) 0 ml IV STAT PRN; Protocol PRN Reason: Hypoglycemia Protocol Dextrose (Glutose 15) 0 gm PO ONCE PRN; Protocol PRN Reason: Hypoglycemia Protocol Enoxaparin Sodium (Lovenox) 30 mg SC DAILY [facility] PRN Reason: Protocol Last Admin: 06/24/17 08:26 Dose: 30 mg Epoetin Roel (Procrit) 10,000 unit SC MWF [facility] Last Admin: 06/23/17 16:18 Dose: 10,000 unit Ergocalciferol (Drisdol 50,000 Intl Units Cap) 1 cap PO Q7D [facility] Furosemide (Lasix) 40 mg IV BID [facility] Last Admin: 06/24/17 08:29 Dose: 40 mg Glucagon (Glucagen Diagnostic Kit) 0 mg IM STAT PRN; Protocol PRN Reason: Hypoglycemia Protocol Vancomycin HCl 1,250 mg/ (Sodium Chloride) 250 mls @ 166.667 mls/hr IVPB Q24H [facility] PRN Reason: Protocol Last Admin: 06/23/17 01:04 Dose: 166.667 mls/hr Piperacillin Sod/Tazobactam (Sod 2.25 gm/ Sodium Chloride) 100 mls @ 100 mls/ hr IVPB Q6 [facility] PRN Reason: Protocol Last Admin: 06/24/17 09:00 Dose: 100 mls/hr Ceftriaxone Sodium 1 gm/ (Sodium Chloride) 100 mls @ 100 mls/hr IVPB DAILY [facility] PRN Reason: Protocol Sodium Chloride (Sodium Chloride 0.9%) 1,000 mls @ 80 mls/hr IV .[id number] [facility] Stop: 06/25/17 14:03 Last Admin: 06/25/17 04:40 Dose: 80 mls/hr Insulin Human Lispro (Humalog) 0 units SC ACHS [facility] PRN Reason: Protocol Last Admin: 06/25/17 08:00 Dose: Not Given Pantoprazole Sodium (Protonix Inj) 40 mg IVP DAILY [facility] Last Admin: 06/24/17 08:26 Dose: 40 mg Thiamine HCl (Vitamin B1 Tab) 100 mg PO BID [facility] Last Admin: 06/24/17 22:30 Dose: 100 mg - Labs Labs: 06/25/17 05:00 06/25/17 05:00 PT 14.7 Seconds (9.8-13.1) H 06/24/17 07:45 INR 1.3 (0.9-1.2) H 06/24/17 07:45 APTT 45.1 Seconds (25.6-37.1) H 06/22/17 20:33 - Constitutional Appears: Chronically Ill - Head Exam Head Exam: ATRAUMATIC, NORMAL INSPECTION, NORMOCEPHALIC - Eye Exam Eye Exam: EOMI, Normal appearance, PERRL Pupil Exam: NORMAL ACCOMODATION, PERRL - ENT Exam ENT Exam: Mucous Membranes Moist, Normal Exam - Neck Exam Neck Exam: Full ROM, Normal Inspection. absent: Lymphadenopathy - Respiratory Exam Respiratory Exam: Decreased Breath Sounds, Prolonged Expiratory Phase, Rales, NORMAL BREATHING PATTERN - Cardiovascular Exam Cardiovascular Exam: REGULAR RHYTHM, +S1, +S2. absent: Murmur - GI/Abdominal Exam GI & Abdominal Exam: Soft, Normal Bowel Sounds. absent: Tenderness - Rectal Exam Rectal Exam: NORMAL INSPECTION - Extremities Exam Extremities Exam: Full ROM, Normal Capillary Refill, Normal Inspection. absent : Joint Swelling, Pedal Edema - Back Exam Back Exam: NORMAL INSPECTION - Neurological Exam Neurological Exam: Alert, Awake, CN II-XII Intact - Skin Skin Exam: Dry, Intact, Normal Color, Warm Assessment and Plan - Assessment and Plan (Free Text) Assessment: bilateral pleural effusions due to chronic renal failure Plan: suggest interventional radiology eval for possible thoracenteses and nephrology eval re-dialysis
[2017-06-25] MEDS: EPOETIN ALFA 10,000 UNIT/ML ML SC SCH (10:29)
[2017-06-25] MEDS: Enoxaparin 30 mg Syringe SC SCH (10:31)
[2017-06-25] MEDS ORDERED: Lidocaine 2% Inj (20ml) ONE (11:49)
--- NOTE | 2017-06-25 13:58 | PCM.SURG1 ---
Surgeon's Initial Post Op Note - Surgeon's Notes Surgeon: Jermaine Malik MD Automatic Drilling Machine Operator: None Type of Anesthesia: Local Pre-Operative Diagnosis: SOB, left pleural effusion Operative Findings: large left pleural effusion Post-Operative Diagnosis: same Operation Performed: US guided left thoracentesis Specimen/Specimens Removed: 1.2 L straw colored fluid removed. Sample submitted as requested. Estimated Blood Loss: EBL {In ML}: 0 Date of Surgery/Procedure: 06/25/17 Time of Surgery/Procedure: 12:00
[2017-06-25 16:55] LABS: BODY FLUID TYPE PLEURAL/THORACENTESI
[2017-06-25] MEDS ORDERED: Sodium Chloride 3% for Inhalation 4 ML VIAL.NEB IH PRN (17:44)
--- NOTE | 2017-06-25 17:44 | CP.PCM.CON ---
History of Present Illness - History of Present Illness History of Present Illness: called for + urine culture with coag neg staph - started on zyvox await pleural fluid cultures cefepime added for gram neg Past Patient History - Infectious Disease Hx of Infectious Diseases: None - Tetanus Immunizations Tetanus Immunization: Unknown - Past Medical History & Family History Past Medical History?: Yes - Past Social History Alcohol: None Drugs: Denies - CARDIAC Hx Congestive Heart Failure: Yes Hx Hypercholesterolemia: No Hx Hypertension: Yes - PULMONARY Hx Chronic Obstructive Pulmonary Disease (COPD): No - NEUROLOGICAL Hx Dementia: No - HEENT Hx HEENT Problems: No - RENAL Hx Chronic Kidney Disease: Yes Hx Kidney Stones: No - ENDOCRINE/METABOLIC Hx Hypothyroidism: No - HEMATOLOGICAL/ONCOLOGICAL Hx Anemia: Yes Hx Human Immunodeficiency Virus (HIV): No Hx Sickle Cell Disease: No - INTEGUMENTARY Hx Dermatological Problems: No - MUSCULOSKELETAL/RHEUMATOLOGICAL Hx Arthritis: No Hx Rheumatoid Arthritis: No - GASTROINTESTINAL Hx Crohn's Disease: No Hx Diverticulitis: No Hx Gall Bladder Disease: No Hx Gastritis: No Hx Pancreatitis: No - GENITOURINARY/GYNECOLOGICAL Hx Genitourinary Disorders: No - PSYCHIATRIC Hx Anxiety: Yes Hx Bipolar Disorder: Yes Hx Depression: Yes Hx Paranoia: No Hx Post Traumatic Stress Disorder: No Hx Schizophrenia: No - SURGICAL HISTORY Hx Surgeries: No - ANESTHESIA Hx Anesthesia: Yes Hx Anesthesia Reactions: No Hx Malignant Hyperthermia: No Meds Allergies/Adverse Reactions: Allergies Allergy/AdvReac Type Severity Reaction Status Date / Time No Known Allergies Allergy Verified 05/21/17 16:02 - Medications Medications: Current Medications Albuterol/Ipratropium (Duoneb 3 Mg/0.5 Mg (3 Ml) Ud) 3 ml INH RQ4 PRN PRN Reason: Shortness of Breath Calcium Acetate (Phoslo) 2,001 mg PO WM [facility] Last Admin: 06/25/17 13:50 Dose: Not Given Carvedilol (Coreg) 12.5 mg PO Q12 [facility] Last Admin: 06/25/17 10:30 Dose: Not Given Dextrose (Dextrose 50% Inj) 0 ml IV STAT PRN; Protocol PRN Reason: Hypoglycemia Protocol Dextrose (Glutose 15) 0 gm PO ONCE PRN; Protocol PRN Reason: Hypoglycemia Protocol Enoxaparin Sodium (Lovenox) 30 mg SC DAILY [facility] PRN Reason: Protocol Last Admin: 06/25/17 10:31 Dose: Not Given Epoetin Roel (Procrit) 10,000 unit SC MWF [facility] Last Admin: 06/25/17 10:29 Dose: 10,000 unit Ergocalciferol (Drisdol 50,000 Intl Units Cap) 1 cap PO Q7D [facility] Furosemide (Lasix) 40 mg IV BID [facility] Last Admin: 06/24/17 08:29 Dose: 40 mg Glucagon (Glucagen Diagnostic Kit) 0 mg IM STAT PRN; Protocol PRN Reason: Hypoglycemia Protocol Haloperidol Lactate (Haldol) 0.5 mg IM Q6 PRN PRN Reason: Agitation Last Admin: 06/25/17 14:35 Dose: 0.5 mg Dextrose (Dextrose 5% In Water 1000 Ml) 1,000 mls @ 50 mls/hr IV .Q20H [facility] Stop: 06/26/17 09:37 Linezolid (Zyvox 600mg/300ml D5w) 600 mg in 300 mls @ 300 mls/hr IVPB Q12 [facility] PRN Reason: Protocol Cefepime HCl 1 gm/ Sodium (Chloride) 100 mls @ 100 mls/hr IVPB DAILY [facility] PRN Reason: Protocol Insulin Human Lispro (Humalog) 0 units SC ACHS [facility] PRN Reason: Protocol Last Admin: 06/25/17 13:37 Dose: Not Given Pantoprazole Sodium (Protonix Inj) 40 mg IVP DAILY [facility] Last Admin: 06/25/17 10:31 Dose: 40 mg Thiamine HCl (Vitamin B1 Tab) 100 mg PO BID [facility] Last Admin: 06/25/17 10:33 Dose: 100 mg Results - Vital Signs Recent Vital Signs: Last Vital Signs Temp 97.1 F L 06/25/17 12:58 Pulse 66 06/25/17 16:07 Resp 17 06/25/17 16:07 BP 169/76 H 06/25/17 16:07 Pulse Ox 94 L 06/25/17 16:07 - Labs Result Diagrams: 06/25/17 05:00 06/25/17 05:00 Labs: Laboratory Results - last 24 hr 06/24/17 06/24/17 06/24/17 11:02 16:07 21:30 WBC RBC Hgb Hct MCV MCH MCHC RDW Plt Count Sodium Potassium Chloride Carbon Dioxide Anion Gap BUN Creatinine Est GFR ( Amer) Est GFR (Non-Af Amer) POC Glucose (mg/dL) 143 H Random Glucose Calcium Phosphorus Magnesium Total Bilirubin AST ALT Alkaline Phosphatase Total Protein Albumin Globulin Albumin/Globulin Ratio Ur Random Sodium 37 Ur Random Potassium 57.2 Fluid Source Ur L.pneumophila Ag Negative 06/25/17 06/25/17 06/25/17 05:00 05:00 05:50 WBC 8.1 RBC 2.53 L Hgb 7.8 L Hct 24.2 L MCV 95.8 H MCH 30.9 MCHC 32.3 L RDW 19.0 H Plt Count 179 Sodium 150 H Potassium 5.0 Chloride 124 H Carbon Dioxide 17 L Anion Gap 14 BUN 96 H Creatinine 4.1 H Est GFR ( Amer) 18 Est GFR (Non-Af Amer) 15 POC Glucose (mg/dL) 114 H Random Glucose 117 H Calcium 8.1 L Phosphorus Magnesium Total Bilirubin < 0.1 L AST 27 ALT 56 Alkaline Phosphatase 142 H Total Protein 5.3 L Albumin 2.4 L Globulin 2.8 Albumin/Globulin Ratio 0.9 L Ur Random Sodium Ur Random Potassium Fluid Source Ur L.pneumophila Ag 06/25/17 06/25/17 08:15 16:51 WBC RBC Hgb Hct MCV MCH MCHC RDW Plt Count Sodium Potassium Chloride Carbon Dioxide Anion Gap BUN Creatinine Est GFR ( Amer) Est GFR (Non-Af Amer) POC Glucose (mg/dL) Random Glucose Calcium Phosphorus 11.0 H Magnesium 2.8 H Total Bilirubin AST ALT Alkaline Phosphatase Total Protein Albumin Globulin Albumin/Globulin Ratio Ur Random Sodium Ur Random Potassium Fluid Source Pleural/thoracentesi Ur L.pneumophila Ag
[2017-06-25 17:59] LABS: BF GROSS APPEARANCE CLEAR (CLEAR)
--- NOTE | 2017-06-25 19:02 | CP.PCM.PN ---
Subjective - Date & Time of Evaluation Date of Evaluation: 06/25/17 Time of Evaluation: 12:00 - Subjective Subjective: Patient reports feeling well; doesn't recall why he came to hospital; for L thoracentesis again today; tolerating diet; Objective - Vital Signs/Intake and Output Vital Signs (last 24 hours): Temp Pulse Resp BP Pulse Ox 97.1 F L 66 17 149/78 94 L 06/25/17 12:58 06/25/17 16:07 06/25/17 16:07 06/25/17 18:00 06/25/17 16:07 - Medications Medications: Current Medications Albuterol/Ipratropium (Duoneb 3 Mg/0.5 Mg (3 Ml) Ud) 3 ml INH RQ4 PRN PRN Reason: Shortness of Breath Calcium Acetate (Phoslo) 2,001 mg PO WM [facility] Last Admin: 06/25/17 18:30 Dose: 2,001 mg Carvedilol (Coreg) 12.5 mg PO Q12 [facility] Last Admin: 06/25/17 10:30 Dose: Not Given Dextrose (Dextrose 50% Inj) 0 ml IV STAT PRN; Protocol PRN Reason: Hypoglycemia Protocol Dextrose (Glutose 15) 0 gm PO ONCE PRN; Protocol PRN Reason: Hypoglycemia Protocol Enoxaparin Sodium (Lovenox) 30 mg SC DAILY [facility] PRN Reason: Protocol Last Admin: 06/25/17 10:31 Dose: Not Given Epoetin Roel (Procrit) 10,000 unit SC MWF [facility] Last Admin: 06/25/17 10:29 Dose: 10,000 unit Ergocalciferol (Drisdol 50,000 Intl Units Cap) 1 cap PO Q7D [facility] Furosemide (Lasix) 40 mg IV BID [facility] Last Admin: 06/24/17 08:29 Dose: 40 mg Glucagon (Glucagen Diagnostic Kit) 0 mg IM STAT PRN; Protocol PRN Reason: Hypoglycemia Protocol Haloperidol Lactate (Haldol) 0.5 mg IM Q6 PRN PRN Reason: Agitation Last Admin: 06/25/17 14:35 Dose: 0.5 mg Dextrose (Dextrose 5% In Water 1000 Ml) 1,000 mls @ 50 mls/hr IV .Q20H [facility] Stop: 06/26/17 09:37 Linezolid (Zyvox 600mg/300ml D5w) 600 mg in 300 mls @ 300 mls/hr IVPB Q12 [facility] PRN Reason: Protocol Cefepime HCl 1 gm/ Sodium (Chloride) 100 mls @ 100 mls/hr IVPB DAILY [facility] PRN Reason: Protocol Insulin Human Lispro (Humalog) 0 units SC ACHS [facility] PRN Reason: Protocol Last Admin: 06/25/17 18:29 Dose: Not Given Pantoprazole Sodium (Protonix Inj) 40 mg IVP DAILY [facility] Last Admin: 06/25/17 10:31 Dose: 40 mg Thiamine HCl (Vitamin B1 Tab) 100 mg PO BID [facility] Last Admin: 06/25/17 18:30 Dose: Not Given - Labs Labs: 06/25/17 05:00 06/25/17 05:00 PT 14.7 Seconds (9.8-13.1) H 06/24/17 07:45 INR 1.3 (0.9-1.2) H 06/24/17 07:45 APTT 45.1 Seconds (25.6-37.1) H 06/22/17 20:33 - Constitutional Appears: Non-toxic, No Acute Distress - Head Exam Head Exam: NORMAL INSPECTION - Eye Exam Eye Exam: Scleral icterus - ENT Exam ENT Exam: Mucous Membranes Moist - Respiratory Exam Respiratory Exam: absent: Respiratory Distress Additional comments: diminished breath sounds particularly on L; - Cardiovascular Exam Cardiovascular Exam: RRR, +S1, +S2 - GI/Abdominal Exam GI & Abdominal Exam: Soft. absent: Distended, Tenderness - Extremities Exam Additional comments: moderately edematous legs; - Neurological Exam Neurological Exam: Alert, Awake - Psychiatric Exam Additional comments: less agitated today, cooperative with exam; - Skin Skin Exam: Warm. absent: Cyanosis Assessment and Plan (1) Acute renal failure Assessment & Plan: CHINTAN on CKD; urine sediment directly observed, showing numerous coarse granular casts consistent with ATN; also with packed field of WBC's which raises the question of pyelo; urine showing jame pyuria and urine culture growing Staph epi, however, this is an unlikely UTI pathogen and so culture being repeated; awaiting ID input as well; Otherwise, rate of increase of serum creat has actually slowed; relatively stable electrolyte and volume status (hypernatremia and metabolic acidosis noted ); no indication for initiation of SHIATSU THERAPIST at this time; -obtaining CT abd/pelvis without contrast to further evaluate for pyelo, possible stone; -changing IVF to D5W at 50 cc/hr; -avoid nephrotoxic agents Status: Acute (2) Altered mental status Assessment & Plan: Improved; possibly related to sepsis; Status: Acute (3) SIRS (systemic inflammatory response syndrome) Assessment & Plan: UTI, see above; ok to remove eden; dose antibiotics for CrCl < 10; Status: Acute (4) Nephrotic syndrome Assessment & Plan: Secondary to diabetic nephropathy, NSAID use may be contributory; needs to be on KEVIN blockade mcfp, holding for now in the setting of acute renal failure ; Status: Acute (5) Anemia Assessment & Plan: Hgb dropping; continue EPO qMWF; Status: Chronic (6) Chronic kidney disease, stage 3 (moderate) Status: Chronic (7) Hypertensive CKD (chronic kidney disease) Assessment & Plan: BP lower than usual; restarted on coreg, starting rest of previous anti-htn meds slowly as needed; Status: Acute
[2017-06-25 19:43] LABS: BODY FLUID MONO/MACROPHAGE 10 % (0-0); BODY FLUID TOTAL COUNT 100 (0-0)
[2017-06-25] MEDS: Linezolid 600 mg in D5W 300 ml 600 MG/300 ML BAG IVPB SCH (22:28)
[2017-06-26] MEDS ORDERED: NIFEdipine 60 mg ER Tab PO SCH (06:38)
[2017-06-26 06:48] LABS: HEMOGLOBIN 9.3 g/dL (12.0-18.0); MEAN CELL VOLUME 95.1 fl (80.0-94.0); MEAN CORPUSCULAR HEMOGLOBIN 30.7 pg (27.0-31.0); MEAN CORPUSCULAR HGB CONC 32.3 g/dL (33.0-37.0); RBC 3.03 Mil/uL (4.40-5.90); RED CELL DISTRIBUTION WIDTH 18.2 % (11.5-14.5); WHITE BLOOD COUNT 10.1 K/uL (4.8-10.8)
[2017-06-26 07:07] LABS: ALB/GLOB RATIO 0.8 (1.0-2.1); ALBUMIN 2.7 g/dL (3.5-5.0); CALCIUM 8.5 mg/dL (8.4-10.2); URIC ACID 9.9 mg/Dl (3.5-8.5)
--- NOTE | 2017-06-26 07:31 | CP.PCM.PN ---
Subjective - Date & Time of Evaluation Date of Evaluation: 06/26/17 Time of Evaluation: 07:28 - Subjective Subjective: 7:30 am 66 YO M seen at bedside, seems agitated. Has one to one next to patient. Patient has been refusing PO medications. Denies visual or auditory hallucinations today. Denies chest pain, SOB, vomiting. Has been tolerating regular diet. - It is noted patient has a abrasion over bridge of his nose. Patient does no recall how he obtained it. Overnight nurse states he has been agitated and picking his nose and could have injured himself. Have advised to cut patients nails or put something over his hands to prevent further injury to self. Objective - Vital Signs/Intake and Output Vital Signs (last 24 hours): Temp Pulse Resp BP Pulse Ox 98.3 F 66 18 185/74 H 95 06/26/17 06:13 06/26/17 06:13 06/26/17 06:13 06/26/17 06:13 06/26/17 06:13 Intake and Output: 06/26/17 06/26/17 06:59 18:59 Intake Total 1040 Output Total 100 Balance 940 - Medications Medications: Current Medications Albuterol/Ipratropium (Duoneb 3 Mg/0.5 Mg (3 Ml) Ud) 3 ml INH RQ4 PRN PRN Reason: Shortness of Breath Calcium Acetate (Phoslo) 2,001 mg PO WM [facility] Last Admin: 06/25/17 18:30 Dose: 2,001 mg Carvedilol (Coreg) 12.5 mg PO Q12 [facility] Last Admin: 06/25/17 10:30 Dose: Not Given Dextrose (Dextrose 50% Inj) 0 ml IV STAT PRN; Protocol PRN Reason: Hypoglycemia Protocol Dextrose (Glutose 15) 0 gm PO ONCE PRN; Protocol PRN Reason: Hypoglycemia Protocol Enoxaparin Sodium (Lovenox) 30 mg SC DAILY [facility] PRN Reason: Protocol Last Admin: 06/25/17 10:31 Dose: Not Given Epoetin Roel (Procrit) 10,000 unit SC MWF [facility] Last Admin: 06/25/17 10:29 Dose: 10,000 unit Ergocalciferol (Drisdol 50,000 Intl Units Cap) 1 cap PO Q7D [facility] Furosemide (Lasix) 40 mg IV BID [facility] Last Admin: 06/24/17 08:29 Dose: 40 mg Glucagon (Glucagen Diagnostic Kit) 0 mg IM STAT PRN; Protocol PRN Reason: Hypoglycemia Protocol Haloperidol Lactate (Haldol) 0.5 mg IM Q6 PRN PRN Reason: Agitation Last Admin: 06/25/17 14:35 Dose: 0.5 mg Dextrose (Dextrose 5% In Water 1000 Ml) 1,000 mls @ 50 mls/hr IV .Q20H [facility] Stop: 06/26/17 09:37 Linezolid (Zyvox 600mg/300ml D5w) 600 mg in 300 mls @ 300 mls/hr IVPB Q12 [facility] PRN Reason: Protocol Last Admin: 06/25/17 22:28 Dose: 300 mls/hr Cefepime HCl 1 gm/ Sodium (Chloride) 100 mls @ 100 mls/hr IVPB DAILY [facility] PRN Reason: Protocol Insulin Human Lispro (Humalog) 0 units SC ACHS [facility] PRN Reason: Protocol Last Admin: 06/25/17 22:26 Dose: Not Given Nifedipine (Procardia Xl) 60 mg PO Q12 [facility] Pantoprazole Sodium (Protonix Inj) 40 mg IVP DAILY [facility] Last Admin: 06/25/17 10:31 Dose: 40 mg Thiamine HCl (Vitamin B1 Tab) 100 mg PO BID [facility] Last Admin: 06/25/17 18:30 Dose: Not Given - Labs Labs: 06/26/17 05:50 06/26/17 05:50 PT 14.7 Seconds (9.8-13.1) H 06/24/17 07:45 INR 1.3 (0.9-1.2) H 06/24/17 07:45 APTT 45.1 Seconds (25.6-37.1) H 06/22/17 20:33 - Constitutional Appears: No Acute Distress, Agitated - Head Exam Head Exam: NORMAL INSPECTION Additional comments: .5 x .5 cm abrasion over nasal bridge - Respiratory Exam Respiratory Exam: Clear to Ausculation Bilateral, NORMAL BREATHING PATTERN. absent: Rales, Rhonchi Additional comments: Scattered crackles - Cardiovascular Exam Cardiovascular Exam: REGULAR RHYTHM, +S1, +S2 - GI/Abdominal Exam GI & Abdominal Exam: Soft. absent: Tenderness - Extremities Exam Additional comments: 2+ B/L pitting edema - Neurological Exam Neurological Exam: Alert, Awake, CN II-XII Intact, Oriented x3 - Skin Skin Exam: Warm Assessment and Plan - Assessment and Plan (Free Text) Assessment: 66 yo ,m, PMhx/o HTN,DM,CKD, chronic left pleural effusion, nephrotic syndrome, anemia and chronic pitting edema, who was brought by EMS to the emergency department complaining of generalized weakness admitted for acute respiratory failure, CHF,sepsis Assesment/Plan 1) Acute Respiratory Failure ( Metabolic acidosis) secondary to overload fluids, pleural effusion, Anasarca - S/P thracocentesis 1.2 L - Patients metabolic acidosis seems to be worsening secondary to worsening renal function - ABG PH: 7.23, CO2: 35, HCO3:15.6, PO2:115. - Pulm has been consulted - C/W nasal canula 2L O2 saturating well - Start Lasix 40 mg IV BID. F/U with renal function - Repeat X Ray shows decrease in size of residual small left pleural effusion post thracentesis. Stable small right pleural effusion. - F/U with pleural fluid, cytology, culture. 2) HCAP -recent admission -D/C vanco and zosin secondary to worsening renal function - Intial chest Chest X ray shows pulmonary vascular congestion with small right and moderate left pleural effusions. Left basilar infiltrate not excluded. - Repeat X Ray shows decrease in size of residual small left pleural effusion post thoracocentesis. Stable small right pleural effusion. - C/W Maxapine and Linozolid 3) Altered mental status - Possibly seconday to the Meteabolic encephalopathy vs UTI - Head CT: Did not show any acute changes. No hemorrhage noted. - Bladder scan: WNL - D/C eden - Urine showed gram positive coagulase negative - C/W Maxapine and Linozolid - F/u with Mg , Phos and electrolytes. Mg and phos has been increasing secondary to CKD with ATN 4) Sepsis ( resolving) - Afebrile SIRS(hypothermia,tachpnea) plus UTI, pleural effusion -D/C Vanco, zosyn. Currently because of nephroxicity -Central line left femoral placed due to hypotension and if needed pressers - with random vanco: 12 - Blood culture x 2 negative - Urine culture showed :Urine showed gram positive coagulase negative >100,000 - C/W ID recommendations - C/W Maxapine and Linozolid 5) Acute diastolic CHF secondary to pulmonary edema and fluid overload -ProBNP 3500 -Echo 05/31/17 normal EF 60-65% - Start lasix 40 mg IV BID again, monitor renal function 6) UTI - Urine was collected on 06/22 on the day of the admission. UTI is not associated with Eden. leukocyturia, nitrates + - Urine Culture: > 100,000 gram positive coci coagulase negative. Similar to previous admission - C/W Maxapine and Linozolid 7) Reccurent Left Pleural effusion - S/P left thoracocentesis: Removed 1.2 L of straw colored fluid. F/u with cultures and cytology -Chest X ray shows pulmonary vascular congestion with small right and moderate left pleural effusions. Left basilar infiltrate not excluded. - Repeat X Ray shows decrease in size of residual small left pleural effusion post thracentesis. Stable small right pleural effusion. 8) CKD stage 4 w/ new onset of ATN - Worsening of CKD from stage 3 to stage 4 secondary to CHINTAN - Prelim renal biopsy results from previous results show: Nephrotic syndrome secondary to Diabetic nephropathy: Advised to continue KEVIN inhibition and DM control. - GFR: 15, BUN/Cr: BUN: 101/ Creatinine: 4.1 - M.6, Phosphorus:9.7 - D/C nephrotoxic medications - F/U with morning CMP 9) DM 2 -home meds hold -SSI 10) HTN - Hydralazine 50 Q8 11) Anemia of chronic disease ( improving) - HB: 9.3, HCT: 28.8 - C/W procrit 12) DVT prophylaxis - Lovenox 30 SC
--- NOTE | 2017-06-26 08:42 | CP.PCM.PN ---
Subjective - Date & Time of Evaluation Date of Evaluation: 06/26/17 Time of Evaluation: 08:42 - Subjective Subjective: S/P THORACENTESES MENTAL STATUS STILL POOR NO SOB/CHEST PAINS Objective - Vital Signs/Intake and Output Vital Signs (last 24 hours): Temp Pulse Resp BP Pulse Ox 97.5 F L 68 18 188/61 H 94 L 06/26/17 08:00 06/26/17 08:00 06/26/17 08:00 06/26/17 08:00 06/26/17 08:00 Intake and Output: 06/26/17 06/26/17 06:59 18:59 Intake Total 1040 Output Total 100 Balance 940 - Medications Medications: Current Medications Albuterol/Ipratropium (Duoneb 3 Mg/0.5 Mg (3 Ml) Ud) 3 ml INH RQ4 PRN PRN Reason: Shortness of Breath Amlodipine Besylate (Norvasc) 10 mg PO DAILY [facility] Calcium Acetate (Phoslo) 2,001 mg PO WM [facility] Last Admin: 06/25/17 18:30 Dose: 2,001 mg Carvedilol (Coreg) 12.5 mg PO Q12 [facility] Last Admin: 06/25/17 10:30 Dose: Not Given Dextrose (Dextrose 50% Inj) 0 ml IV STAT PRN; Protocol PRN Reason: Hypoglycemia Protocol Dextrose (Glutose 15) 0 gm PO ONCE PRN; Protocol PRN Reason: Hypoglycemia Protocol Enoxaparin Sodium (Lovenox) 30 mg SC DAILY [facility] PRN Reason: Protocol Last Admin: 06/25/17 10:31 Dose: Not Given Epoetin Roel (Procrit) 10,000 unit SC MWF [facility] Last Admin: 06/25/17 10:29 Dose: 10,000 unit Ergocalciferol (Drisdol 50,000 Intl Units Cap) 1 cap PO Q7D [facility] Furosemide (Lasix) 40 mg IV BID [facility] Last Admin: 06/24/17 08:29 Dose: 40 mg Glucagon (Glucagen Diagnostic Kit) 0 mg IM STAT PRN; Protocol PRN Reason: Hypoglycemia Protocol Haloperidol Lactate (Haldol) 0.5 mg IM Q6 PRN PRN Reason: Agitation Last Admin: 06/25/17 14:35 Dose: 0.5 mg Linezolid (Zyvox 600mg/300ml D5w) 600 mg in 300 mls @ 300 mls/hr IVPB Q12 [facility] PRN Reason: Protocol Last Admin: 06/25/17 22:28 Dose: 300 mls/hr Cefepime HCl 1 gm/ Sodium (Chloride) 100 mls @ 100 mls/hr IVPB DAILY [facility] PRN Reason: Protocol Dextrose (Dextrose 5% In Water 1000 Ml) 1,000 mls @ 80 mls/hr IV .[id number] [facility] Stop: 06/26/17 09:37 Insulin Human Lispro (Humalog) 0 units SC ACHS [facility] PRN Reason: Protocol Last Admin: 06/25/17 22:26 Dose: Not Given Pantoprazole Sodium (Protonix Inj) 40 mg IVP DAILY [facility] Last Admin: 06/25/17 10:31 Dose: 40 mg Thiamine HCl (Vitamin B1 Tab) 100 mg PO BID [facility] Last Admin: 06/25/17 18:30 Dose: Not Given - Labs Labs: 06/26/17 05:50 06/26/17 05:50 PT 14.7 Seconds (9.8-13.1) H 06/24/17 07:45 INR 1.3 (0.9-1.2) H 06/24/17 07:45 APTT 45.1 Seconds (25.6-37.1) H 06/22/17 20:33 - Constitutional Appears: Chronically Ill - Head Exam Head Exam: ATRAUMATIC, NORMAL INSPECTION, NORMOCEPHALIC - Eye Exam Eye Exam: EOMI, Normal appearance, PERRL Pupil Exam: NORMAL ACCOMODATION, PERRL - ENT Exam ENT Exam: Mucous Membranes Moist, Normal Exam - Neck Exam Neck Exam: Full ROM, Normal Inspection. absent: Lymphadenopathy - Respiratory Exam Respiratory Exam: Decreased Breath Sounds, Prolonged Expiratory Phase, Rales, NORMAL BREATHING PATTERN Additional comments: BETTER AERATION OF LUNGS POST-THORACENTESES - Cardiovascular Exam Cardiovascular Exam: REGULAR RHYTHM, +S1, +S2. absent: Murmur - GI/Abdominal Exam GI & Abdominal Exam: Soft, Normal Bowel Sounds. absent: Tenderness - Rectal Exam Rectal Exam: NORMAL INSPECTION - Extremities Exam Extremities Exam: Full ROM, Normal Capillary Refill, Normal Inspection. absent : Joint Swelling, Pedal Edema - Back Exam Back Exam: NORMAL INSPECTION - Neurological Exam Neurological Exam: Alert, Awake, CN II-XII Intact, Normal Gait, Oriented x3 - Psychiatric Exam Psychiatric exam: Normal Affect, Normal Mood - Skin Skin Exam: Dry, Intact, Normal Color, Warm Assessment and Plan - Assessment and Plan (Free Text) Assessment: BILATERAL PLEURAL EFFUSIONS PROBABLY DUE TO RENAL FAILURE Plan: CONTINUE PRESENT RX WILL FOLLOW WITH YOU
[2017-06-26] MEDS: Insulin Lispro (humaLOG) 100 Units/ml Inj SC SCH ×4 (09:34→22:44)
--- NOTE | 2017-06-26 09:35 | RAD ---
PROCEDURE: CHEST RADIOGRAPH, 1 VIEW HISTORY: pleural effusion COMPARISON: Chest radiograph dated 06/24/2017 FINDINGS: LUNGS: Pulmonary vascular congestion. PLEURA: Decrease in size of residual small left pleural effusion post thoracentesis. Stable small right pleural effusion. CARDIOVASCULAR: Unchanged. OSSEOUS STRUCTURES: Unchanged. VISUALIZED UPPER ABDOMEN: Normal. OTHER FINDINGS: None. IMPRESSION: Decrease in size of residual small left pleural effusion post thoracentesis. Stable small right pleural effusion.
--- NOTE | 2017-06-26 09:48 | CT ---
PROCEDURE: ULTRASOUND-GUIDED THORACENTESIS CLINICAL HISTORY: 66-year-old male with shortness of breath and left pleural effusion is referred to Interventional Radiology for ultrasound-guided thoracentesis. COMPARISON: Correlation is made to chest radiograph dated 06/24/2017 PROCEDURE: 1. Ultrasound-guided left thoracentesis. PRE-PROCEDURE FINDINGS: 1. Large volume pleural effusion. POST-PROCEDURE FINDINGS: 1. Small residual left pleural effusion. 2. No evidence of post-procedural complication. INTERVENTIONAL RADIOLOGIST: Jermaine Malik M.D. (the attending was present for the entire procedure) ANESTHESIA: None. MEDICATION: Lidocaine 1% for local subcutaneous analgesia. COMPLICATIONS: None. PROCEDURE DESCRIPTION AND FINDINGS: The risks, benefits, alternatives and possible complications of the procedure were fully discussed; all questions were answered and informed consent was obtained. The patient was brought into the interventional suite and a pre-procedure 'time-out' was performed. The patient was placed in the seated position. Preliminary ultrasound images of the left hemithorax demonstrate a large simple appearing pleural effusion. The left hemithorax was prepped and draped in the usual sterile fashion. Maximum sterile barrier precautions were maintained throughout the entire procedure. Following subcutaneous infiltration of lidocaine 1% for local analgesia, under ultrasound guidance, a 5 [place] centesis catheter was advanced into left pleural space with real-time visualization of needle entry. The ultrasound images were permanently recorded and submitted to the PACS. The inner stylet was removed with prompt return of straw-colored fluid. The catheter was attached to gentle vacuum suction. A total of 1200 mL of straw-colored fluid was aspirated. A sample was sent to the laboratory for analysis. The drainage catheter was then removed. A sterile adhesive bandage was placed over the puncture site. The patient tolerated the procedure well without immediate post-procedure complications and was transferred back to the floor in stable condition. IMPRESSION: SUCCESSFUL ULTRASOUND-GUIDED LEFT DIAGNOSTIC AND THERAPEUTIC THORACENTESIS.
--- NOTE | 2017-06-26 11:09 | CP.PCM.PN ---
Subjective - Date & Time of Evaluation Date of Evaluation: 06/26/17 Time of Evaluation: 11:07 - Subjective Subjective: Patient reportedly confused; having trouble swallowing even thickened liquid; cooperating with PT; reports L sided flank pain and dysuria; Objective - Vital Signs/Intake and Output Vital Signs (last 24 hours): Temp Pulse Resp BP Pulse Ox 97.5 F L 68 18 188/61 H 94 L 06/26/17 08:00 06/26/17 09:33 06/26/17 08:00 06/26/17 09:33 06/26/17 08:00 Intake and Output: 06/26/17 06/26/17 06:59 18:59 Intake Total 1040 Output Total 100 Balance 940 - Medications Medications: Current Medications Albuterol/Ipratropium (Duoneb 3 Mg/0.5 Mg (3 Ml) Ud) 3 ml INH RQ4 PRN PRN Reason: Shortness of Breath Amlodipine Besylate (Norvasc) 10 mg PO DAILY [facility] Last Admin: 06/26/17 09:33 Dose: 10 mg Calcium Acetate (Phoslo) 2,001 mg PO WM [facility] Last Admin: 06/26/17 09:35 Dose: 2,001 mg Carvedilol (Coreg) 12.5 mg PO Q12 [facility] Last Admin: 06/25/17 10:30 Dose: Not Given Dextrose (Dextrose 50% Inj) 0 ml IV STAT PRN; Protocol PRN Reason: Hypoglycemia Protocol Dextrose (Glutose 15) 0 gm PO ONCE PRN; Protocol PRN Reason: Hypoglycemia Protocol Enoxaparin Sodium (Lovenox) 30 mg SC DAILY [facility] PRN Reason: Protocol Last Admin: 06/25/17 10:31 Dose: Not Given Epoetin Roel (Procrit) 10,000 unit SC MWF [facility] Last Admin: 06/25/17 10:29 Dose: 10,000 unit Ergocalciferol (Drisdol 50,000 Intl Units Cap) 1 cap PO Q7D [facility] Furosemide (Lasix) 40 mg IV BID [facility] Last Admin: 06/24/17 08:29 Dose: 40 mg Furosemide (Lasix) 100 mg IVP ONCE ONE Stop: 06/26/17 11:07 Glucagon (Glucagen Diagnostic Kit) 0 mg IM STAT PRN; Protocol PRN Reason: Hypoglycemia Protocol Haloperidol Lactate (Haldol) 0.5 mg IM Q6 PRN PRN Reason: Agitation Last Admin: 06/25/17 14:35 Dose: 0.5 mg Hydralazine HCl (Apresoline) 50 mg PO Q8 [facility] Linezolid (Zyvox 600mg/300ml D5w) 600 mg in 300 mls @ 300 mls/hr IVPB Q12 [facility] PRN Reason: Protocol Last Admin: 06/25/17 22:28 Dose: 300 mls/hr Cefepime HCl 1 gm/ Sodium (Chloride) 100 mls @ 100 mls/hr IVPB DAILY [facility] PRN Reason: Protocol Dextrose (Dextrose 5% In Water 1000 Ml) 1,000 mls @ 80 mls/hr IV .[id number] [facility] Stop: 06/27/17 10:55 Insulin Human Lispro (Humalog) 0 units SC ACHS [facility] PRN Reason: Protocol Last Admin: 06/26/17 09:34 Dose: Not Given Pantoprazole Sodium (Protonix Inj) 40 mg IVP DAILY [facility] Last Admin: 06/26/17 09:35 Dose: 40 mg Thiamine HCl (Vitamin B1 Tab) 100 mg PO BID [facility] Last Admin: 06/26/17 09:36 Dose: 100 mg - Labs Labs: 06/26/17 05:50 06/26/17 05:50 PT 14.7 Seconds (9.8-13.1) H 06/24/17 07:45 INR 1.3 (0.9-1.2) H 06/24/17 07:45 APTT 45.1 Seconds (25.6-37.1) H 06/22/17 20:33 - Constitutional Appears: Non-toxic, No Acute Distress - Eye Exam Eye Exam: absent: Scleral icterus - ENT Exam ENT Exam: Mucous Membranes Moist - Respiratory Exam Respiratory Exam: Clear to Ausculation Bilateral. absent: Respiratory Distress - Cardiovascular Exam Cardiovascular Exam: RRR, +S1, +S2 - GI/Abdominal Exam GI & Abdominal Exam: Soft. absent: Distended, Tenderness - Exam Additional comments: L CVA tenderness; - Extremities Exam Additional comments: moderately edematous ext; anasarca; - Neurological Exam Neurological Exam: Alert, Awake - Psychiatric Exam Psychiatric exam: absent: Agitated - Skin Skin Exam: Warm. absent: Cyanosis Assessment and Plan (1) Acute renal failure Assessment & Plan: CHINTAN on CKD; ATN in the setting of acute insult (patient found moderately hypothermic, with possible UTI sepsis); oliguric renal failure; serum creatinine now at plateau since yesterday indicating renal recovery is close; Volume overloaded with pulmonary venous congestion on CXR but otherwise on stable FIO2 requirement; relatively stable electrolyte status (stable metabolic acidosis); hypernatremia persists in the setting of poor PO intake; -Will hold off on HD for now; -Resume lasix 80 mg IV bid -Awaiting CT abd/pelvis to look for possible cause of complicated UTI -Increase D5W to 100 cc/hr (hypernatremia may worsen with lasix); will not worsen hypertension or pulm venous congestion; -Avoid nephrotoxic agents Status: Acute (2) Altered mental status Assessment & Plan: Etiology unclear but UTI/sepsis most likely; possible component of renal failure but this generally causes more lethargy/drowsiness than agitation; need to dose meds for CrCl < 10 to avoid accumulation of metabolites that can worsen mental status (meds properly dosed currently); Status: Acute (3) SIRS (systemic inflammatory response syndrome) Assessment & Plan: With moderate hypothermia on admission; urine culture growing coag neg Staph; ID input appreciated, started on linezolid and cefepime (dosed for CrCl < 10); awaiting repeat urine culture and CT abd/pelvis; Status: Acute (4) Nephrotic syndrome Assessment & Plan: Is contributing to patient's recurrent pleural effusion; due to DM nephropathy and possibly NSAID use; unfortunately, no good treatment other than KEVIN blockade (which we cannot start now due to CHINTAN) and tight BP control (<130/80); at some point after CHINTAN recovers, may benefit from being initiated on HD early ( once eGFR < 15); Status: Chronic (5) Anemia Assessment & Plan: Hgb still below goal; continue EPO 10,000 u qMWF; Status: Chronic (6) Chronic kidney disease, stage 3 (moderate) Status: Chronic (7) Hypertensive CKD (chronic kidney disease) Assessment & Plan: BP uncontrolled in the setting of volume overload; nifedipine XL changed to norvasc so it can be crushed (but will take a few days to take fulll effect); patient has poor adherence to meds and so clonidine not being given due to fear of rebound hypertension; -Start hydralazine 50 mg q8h; can increase to 100 mg as needed; -Lasix as above Status: Acute
[2017-06-26 11:33] LABS: TOTAL PROTEIN,BODY FLUID < 2.0 g/dL (NONE ESTABLISHED)
--- NOTE | 2017-06-26 13:11 | CP.PCM.CON ---
History of Present Illness - History of Present Illness History of Present Illness: 66 yo ,m, PMhx/o HTN,DM,CKD, chronic left pleural effusion, nephrotic syndrome, anemia and chronic pitting edema, who was brought by EMS to the emergency department complaining of generalized weakness. As per EMS, patient is homeless and stays in a garage. Patient lethargic in ED, with respiratory distress, using bipap, with hypothermia Improved somewhat but remains uremic and confused ID caLLED FOR + CULTURES PMH: HTN, NIIDM2, CKD stage 3, depression, left pleural effusion, nephrotic syndrome, Anemia Myeloma Medications as per orders Allergies: NKDA Social: denies etoh, +tobacco use Surgical Hx:thoracocentesis, left renal biopsy Family hx: unknown Review of Systems - Review of Systems Systems not reviewed;Unavailable: Altered Mental Status All systems: reviewed and no additional remarkable complaints except - Constitutional Constitutional: As Per HPI - EENT Eyes: absent: As Per HPI, Blind Spots, Blurred Vision, Change in Vision, Decreased Night Vision, Diplopia, Discharge, Dry Eye, Exophthalmos, Floaters, Irritation, Itchy Eyes, Loss of Peripheral Vision, Pain, Photophobia, Requires Corrective Lenses, Sees Flashes, Spots in Vision, Tunnel Vision, Other Visual Disturbances, Loss of Vision, Other Ears: absent: As Per HPI, Decreased Hearing, Ear Discharge, Ear Pain, Tinnitus, Abnormal Hearing, Disequilibrium, Dizziness, Other Nose/Mouth/Throat: absent: As Per HPI, Epistaxis, Nasal Congestion, Nasal Discharge, Nasal Obstruction, Nasal Trauma, Nose Pain, Post Nasal Drip, Sinus Pain, Sinus Pressure, Bleeding Gums, Change in Voice, Dental Pain, Dry Mouth, Dysphagia, Halitosis, Hoarsness, Lip Swelling, Mouth Lesions, Mouth Pain, Odynophagia, Sore Throat, Throat Swelling, Tongue Swelling, Facial Pain, Neck Pain, Neck Mass, Other - Cardiovascular Cardiovascular: absent: As Per HPI, Acrocyanosis, Chest Pain, Chest Pain at Rest , Chest Pain with Activity, Claudication, Diaphoresis, Dyspnea, Dyspnea on Exertion, Edema, Irregular Heart Rhythm, Pain Radiating to Arm/Neck/Jaw, Leg Edema, Leg Ulcers, Lightheadedness, Orthopnea, Palpitations, Paroxysmal Nocturnal Dyspnea, Pedal Edema, Radiating Pain, Rapid Heart Rate, Slow Heart Rate, Syncope, Other - Respiratory Respiratory: absent: As Per HPI, Cough, Dyspnea, Hemoptysis, Dyspnea on Exertion , Wheezing, Snoring, Stridor, Pain on Inspiration, Chest Congestion, Excessive Mucous Production, Change in Mucous Color, Pain with Coughing, Other - Gastrointestinal Gastrointestinal: absent: As Per HPI, Abdominal Pain, Belching, Bloating, Change in Bowel Habits, Change in Stool Character, Coffee Ground Emesis, Constipation, Cramping, Diarrhea, Dyspepsia, Dysphagia, Early Satiety, Excessive Flatus, Fecal Incontinence, Heartburn, Hematemesis, Hematochezia, Loose Stools, Melena, Nausea, Odynophagia, Temesmus, Vomiting, Other - Genitourinary Genitourinary: absent: As Per HPI, Change in Urinary Stream, Difficulty Urinating, Dysuria, Flank Pain, Hematuria, Pyuria, Nocturia, Urinary Incontinence, Urinary Frequency, Urinary Hesitance, Urinary Urgency, Voiding Freq/Small Amts, Freq UTI, Hx Renal/Bladder Calculi, Hx /Renal Surgery, Bladder Distension, Other - Musculoskeletal Musculoskeletal: absent: As Per HPI, Abnormal Gait, Arthralgias, Atrophy, Back Pain, Deformity, Joint Swelling, Limited Range of Motion, Loss of Height, Muscle Cramps, Muscle Weakness, Myalgias, Neck Pain, Numbness, Radiating Pain into Limb, Stiffness, Tingling, Other - Integumentary Integumentary: absent: As Per HPI, Acne, Alopecia, Bleeding Lesions, Change in Hair, Change in Nails, Change in Pigmentation, Changing Lesions, Dry Skin, Erythema, Furuncle, Hirsutism, Lesions, New Lesions, Non-Healing Lesions, Photosensitivity, Pruritus, Rash, Skin Pain, Skin Ulcer, Sores, Striae, Swelling , Unusual Bruising, Wounds, Jaundice, Other - Neurological Neurological: absent: As Per HPI, Abnormal Gait, Abnormal Hearing, Abnormal Movements, Abnormal Speech, Behavioral Changes, Burning Sensations, Confusion, Convulsions, Disequilibrium, Dizziness, Numbness, Focal Weakness, Frequent Falls , Headaches, Lack of Coordination, Loss of Vision, Memory Loss, Paresthesias, Radicular Pain, Restless Legs, Sensory Deficit, Syncope, Tingling, Tremor, Vertigo, Weakness, Other Visual Disturbances, Other - Psychiatric Psychiatric: absent: As Per HPI, Abnormal Sleep Pattern, Anhedonia, Anxiety, Auditory Hallucinations, Behavioral Changes, Change in Appetite, Change in Libido, Confusion, Depression, Difficulty Concentrating, Hallucinations, Homicidal Ideation, Hopelessness, Irritability, Memory Loss, Mood Swings, Panic Attacks, Paranoia, Suicidal Ideation, Visual Hallucinations, Tactile Hallucinations, Other - Endocrine Endocrine: absent: As Per HPI, Change in Body Appearance, Change in Libido, Cold Intolorance, Deepening of Voice, Excessive Sweating, Fatigue, Flushing, Heat Intolorance, Increase in Ring/Shoe/Hat Size, Palpitations, Polydipsia, Polyphagia, Polyuria, Other - Hematologic/Lymphatic Hematologic: absent: As Per HPI, Easy Bleeding, Easy Bruising, Lymphadenopathy, Other Past Patient History - Infectious Disease Hx of Infectious Diseases: None - Tetanus Immunizations Tetanus Immunization: Unknown - Past Medical History & Family History Past Medical History?: Yes - Past Social History Alcohol: None Drugs: Denies - CARDIAC Hx Congestive Heart Failure: Yes Hx Hypercholesterolemia: No Hx Hypertension: Yes - PULMONARY Hx Chronic Obstructive Pulmonary Disease (COPD): No - NEUROLOGICAL Hx Dementia: No - HEENT Hx HEENT Problems: No - RENAL Hx Chronic Kidney Disease: Yes Hx Kidney Stones: No - ENDOCRINE/METABOLIC Hx Hypothyroidism: No - HEMATOLOGICAL/ONCOLOGICAL Hx Anemia: Yes Hx Human Immunodeficiency Virus (HIV): No Hx Sickle Cell Disease: No - INTEGUMENTARY Hx Dermatological Problems: No - MUSCULOSKELETAL/RHEUMATOLOGICAL Hx Arthritis: No Hx Rheumatoid Arthritis: No - GASTROINTESTINAL Hx Crohn's Disease: No Hx Diverticulitis: No Hx Gall Bladder Disease: No Hx Gastritis: No Hx Pancreatitis: No - GENITOURINARY/GYNECOLOGICAL Hx Genitourinary Disorders: No - PSYCHIATRIC Hx Anxiety: Yes Hx Bipolar Disorder: Yes Hx Depression: Yes Hx Paranoia: No Hx Post Traumatic Stress Disorder: No Hx Schizophrenia: No - SURGICAL HISTORY Hx Surgeries: No - ANESTHESIA Hx Anesthesia: Yes Hx Anesthesia Reactions: No Hx Malignant Hyperthermia: No Meds Allergies/Adverse Reactions: Allergies Allergy/AdvReac Type Severity Reaction Status Date / Time No Known Allergies Allergy Verified 05/21/17 16:02 - Medications Medications: Current Medications Albuterol/Ipratropium (Duoneb 3 Mg/0.5 Mg (3 Ml) Ud) 3 ml INH RQ4 PRN PRN Reason: Shortness of Breath Amlodipine Besylate (Norvasc) 10 mg PO DAILY [facility] Last Admin: 06/26/17 09:33 Dose: 10 mg Calcium Acetate (Phoslo) 2,001 mg PO [facility] Last Admin: 06/26/17 09:35 Dose: 2,001 mg Carvedilol (Coreg) 12.5 mg PO Q12 [facility] Last Admin: 06/25/17 10:30 Dose: Not Given Dextrose (Dextrose 50% Inj) 0 ml IV STAT PRN; Protocol PRN Reason: Hypoglycemia Protocol Dextrose (Glutose 15) 0 gm PO ONCE PRN; Protocol PRN Reason: Hypoglycemia Protocol Enoxaparin Sodium (Lovenox) 30 mg SC DAILY [facility] PRN Reason: Protocol Last Admin: 06/25/17 10:31 Dose: Not Given Epoetin Roel (Procrit) 10,000 unit SC MWF [facility] Last Admin: 06/25/17 10:29 Dose: 10,000 unit Ergocalciferol (Drisdol 50,000 Intl Units Cap) 1 cap PO Q7D [facility] Furosemide (Lasix) 80 mg IV BID [facility] Glucagon (Glucagen Diagnostic Kit) 0 mg IM STAT PRN; Protocol PRN Reason: Hypoglycemia Protocol Haloperidol Lactate (Haldol) 0.5 mg IM Q6 PRN PRN Reason: Agitation Last Admin: 06/25/17 14:35 Dose: 0.5 mg Hydralazine HCl (Apresoline) 50 mg PO Q8 [facility] Linezolid (Zyvox 600mg/300ml D5w) 600 mg in 300 mls @ 300 mls/hr IVPB Q12 [facility] PRN Reason: Protocol Last Admin: 06/25/17 22:28 Dose: 300 mls/hr Cefepime HCl 1 gm/ Sodium (Chloride) 100 mls @ 100 mls/hr IVPB [facility]ILY [facility] PRN Reason: Protocol Dextrose (Dextrose 5% In Water 1000 Ml) 1,000 mls @ 80 mls/hr IV .[id number] [facility] Stop: 06/27/17 10:55 Insulin Human Lispro (Humalog) 0 units SC ACHS [facility] PRN Reason: Protocol Last Admin: 06/26/17 11:54 Dose: Not Given Pantoprazole Sodium (Protonix Inj) 40 mg IVP DAILY [facility] Last Admin: 06/26/17 09:35 Dose: 40 mg Thiamine HCl (Vitamin B1 Tab) 100 mg PO BID [facility] Last Admin: 06/26/17 09:36 Dose: 100 mg Physical Exam - Constitutional Appears: Non-toxic, Confused, Chronically Ill - Head Exam Head Exam: ATRAUMATIC, NORMAL INSPECTION, NORMOCEPHALIC - Eye Exam Eye Exam: PERRL. absent: Scleral icterus - ENT Exam ENT Exam: Mucous Membranes Dry, Normal External Ear Exam - Neck Exam Neck exam: Negative for: Lymphadenopathy - Respiratory Exam Respiratory Exam: Decreased Breath Sounds, Rales, Rhonchi - Cardiovascular Exam Cardiovascular Exam: REGULAR RHYTHM, +S1, +S2 - GI/Abdominal Exam GI & Abdominal Exam: Diminished Bowel Sounds, Soft. absent: Tenderness - Rectal Exam Rectal Exam: Deferred - Exam Exam: NORMAL INSPECTION - Extremities Exam Extremities exam: Positive for: pedal edema, pedal pulses present. Negative for : calf tenderness, tenderness - Back Exam Back exam: absent: CVA tenderness (L), CVA tenderness (R) - Neurological Exam Neurological exam: Altered - Psychiatric Exam Psychiatric exam: Depressed - Skin Skin Exam: Dry Results - Vital Signs Recent Vital Signs: Last Vital Signs Temp 98.2 F 06/26/17 12:00 Pulse 65 06/26/17 12:00 Resp 18 06/26/17 12:00 BP 176/72 H 06/26/17 12:00 Pulse Ox 95 06/26/17 12:00 - Labs Result Diagrams: 06/26/17 05:50 06/26/17 05:50 Labs: Laboratory Results - last 24 hr 06/25/17 06/26/17 06/26/17 16:51 05:50 05:50 WBC 10.1 RBC 3.03 L Hgb 9.3 L Hct 28.8 L MCV 95.1 H MCH 30.7 MCHC 32.3 L RDW 18.2 H Plt Count 208 Sodium 151 H Potassium 5.1 H Chloride 124 H Carbon Dioxide 17 L Anion Gap 15 BUN 101 H* Creatinine 4.1 H Est GFR ( Amer) 18 Est GFR (Non-Af Amer) 15 POC Glucose (mg/dL) Random Glucose 157 H Uric Acid 9.9 H Calcium 8.5 Total Bilirubin 0.2 AST 26 ALT 56 Alkaline Phosphatase 171 H D Total Protein 5.8 L Albumin 2.7 L Globulin 3.2 Albumin/Globulin Ratio 0.8 L Fluid Source Pleural/thoracentesi Fluid Appearance Clear Fluid WBC 26.0 Fluid RBC 247.0 H Fluid Tot Cell Count 100 H Fluid Neutrophils 38.0 H Fluid Lymphocytes 52.0 H Fld Monocyte/Macrophag 10 H Fluid Total Protein Fluid LDH Fluid Comment Yellowish 06/26/17 06/26/17 09:42 11:33 WBC RBC Hgb Hct MCV MCH MCHC RDW Plt Count Sodium Potassium Chloride Carbon Dioxide Anion Gap BUN Creatinine Est GFR ( Amer) Est GFR (Non-Af Amer) POC Glucose (mg/dL) 193 H Random Glucose Uric Acid Calcium Total Bilirubin AST ALT Alkaline Phosphatase Total Protein Albumin Globulin Albumin/Globulin Ratio Fluid Source Fluid Appearance Fluid WBC Fluid RBC Fluid Tot Cell Count Fluid Neutrophils Fluid Lymphocytes Fld Monocyte/Macrophag Fluid Total Protein < 2.0 Fluid LDH 323 Fluid Comment Assessment & Plan (1) Acute renal failure Status: Acute (2) Altered mental status Status: Acute (3) CHF (congestive heart failure) Status: Acute (4) DM2 (diabetes mellitus, type 2) Status: Acute (5) HCAP (healthcare-associated pneumonia) Status: Acute (6) Pleural effusion Status: Acute (7) SIRS (systemic inflammatory response syndrome) Status: Acute (8) Sepsis Status: Acute (9) Acute kidney injury superimposed on chronic kidney disease Status: Acute (10) Alcohol abuse Status: Acute (11) Anasarca Status: Acute (12) Anemia of renal disease Status: Acute (13) Bilateral lower extremity edema Status: Acute - Assessment and Plan (Free Text) Assessment: AWAIT REPEAT CULTURES CONSIDER PALLIATIVE CARE
[2017-06-26] MEDS: Cefepime 1 GM in Sodium Chloride 0.9% 100 ML IVPB SCH (13:15)
[2017-06-26] MEDS: Linezolid 600 mg in D5W 300 ml 600 MG/300 ML BAG IVPB SCH ×2 (13:16→21:44)
--- NOTE | 2017-06-26 18:30 | CT ---
PROCEDURE: CT Abdomen and Pelvis without intravenous contrast HISTORY: looking for cause of complicated UTI; COMPARISON: 09/05/2015 CT abdomen and pelvis. TECHNIQUE: Unenhanced study. Neither oral nor intravenous contrast administered. . Radiation dose: Total exam DLP = 1087.21 mGy-cm. This CT exam was performed using one or more of the following dose reduction techniques: Automated exposure control, adjustment of the mA and/or kV according to patient size, and/or use of iterative reconstruction technique. FINDINGS: LOWER THORAX: Completely visualize bilateral pleural effusions and compressive atelectasis. Incomplete visualization right middle lobe consolidative change. LIVER: Unremarkable. No gross lesion or ductal dilatation. GALLBLADDER AND BILE DUCTS: Unremarkable. PANCREAS: Unremarkable. No gross lesion or ductal dilatation. SPLEEN: Unremarkable. ADRENALS: Unremarkable. No mass. KIDNEYS AND URETERS: Unremarkable. No hydronephrosis. No solid mass. Calcifications within renal arterial should not be mistaken for calculus disease. VASCULATURE: Unremarkable. No aortic aneurysm. BOWEL: Fecal impaction without a component of obstruction. Fluid-filled loops of small bowel without mechanical obstruction. APPENDIX: Unremarkable. Normal appendix. PERITONEUM: Unremarkable. No free fluid. No free air. LYMPH NODES: Unremarkable. No enlarged lymph nodes. BLADDER: Unremarkable. REPRODUCTIVE: Bilateral hydroceles. Unremarkable prostate BONES: No acute fracture. OTHER FINDINGS: Diffuse anasarca, lower extremity edema. IMPRESSION: Unremarkable kidneys, ureters and urinary bladder. Bilateral pleural effusions, anasarca and lower extremity edema suggests a component of right heart failure. Additional benign and/or incidental findings described above.
[2017-06-27 06:40] LABS: ALB/GLOB RATIO 0.8 (1.0-2.1); ALBUMIN 2.5 g/dL (3.5-5.0); CALCIUM 8.2 mg/dL (8.4-10.2)
[2017-06-27] MEDS: Insulin Lispro (humaLOG) 100 Units/ml Inj SC SCH ×6 (07:42→22:21)
[2017-06-27] MEDS ORDERED: Levalbuterol 0.63 MG/3 ML Inhal Soln UD INH PRN (07:56)
--- NOTE | 2017-06-27 08:29 | CP.PCM.PN ---
Subjective - Date & Time of Evaluation Date of Evaluation: 06/27/17 Time of Evaluation: 07:30 - Subjective Subjective: - Patient was seen at bedside resting comfortably today. Appears less agitated. States he slept well. However still continues to have thoughts somebody is trying to hurt him. Denies any suicidal or homicidal ideations. Has some burning during urination, - Denies any chest pain, SOB, nausea , vomiting. Objective - Vital Signs/Intake and Output Vital Signs (last 24 hours): Temp Pulse Resp BP Pulse Ox 97 F L 59 L 18 175/79 H 97 06/27/17 05:26 06/27/17 05:26 06/27/17 05:26 06/27/17 05:26 06/27/17 05:26 Intake and Output: 06/27/17 06/27/17 06:59 18:59 Intake Total 1200 Output Total 300 Balance 900 - Medications Medications: Current Medications Albuterol/Ipratropium (Duoneb 3 Mg/0.5 Mg (3 Ml) Ud) 3 ml INH RQ4 PRN PRN Reason: Shortness of Breath Amlodipine Besylate (Norvasc) 10 mg PO DAILY [facility] Last Admin: 06/26/17 09:33 Dose: 10 mg Calcium Acetate (Phoslo) 2,001 mg PO WM [facility] Last Admin: 06/26/17 23:40 Dose: 2,001 mg Carvedilol (Coreg) 12.5 mg PO Q12 [facility] Last Admin: 06/25/17 10:30 Dose: Not Given Dextrose (Dextrose 50% Inj) 0 ml IV STAT PRN; Protocol PRN Reason: Hypoglycemia Protocol Dextrose (Glutose 15) 0 gm PO ONCE PRN; Protocol PRN Reason: Hypoglycemia Protocol Enoxaparin Sodium (Lovenox) 30 mg SC DAILY [facility] PRN Reason: Protocol Last Admin: 06/25/17 10:31 Dose: Not Given Epoetin Roel (Procrit) 10,000 unit SC MWF [facility] Last Admin: 06/25/17 10:29 Dose: 10,000 unit Ergocalciferol (Drisdol 50,000 Intl Units Cap) 1 cap PO Q7D [facility] Furosemide (Lasix) 80 mg IV BID [facility] Last Admin: 06/26/17 17:01 Dose: Not Given Glucagon (Glucagen Diagnostic Kit) 0 mg IM STAT PRN; Protocol PRN Reason: Hypoglycemia Protocol Haloperidol Lactate (Haldol) 0.5 mg IM Q6 PRN PRN Reason: Agitation Last Admin: 06/25/17 14:35 Dose: 0.5 mg Hydralazine HCl (Apresoline) 50 mg PO Q8 [facility] Last Admin: 06/27/17 01:15 Dose: 50 mg Linezolid (Zyvox 600mg/300ml D5w) 600 mg in 300 mls @ 300 mls/hr IVPB Q12 [facility] PRN Reason: Protocol Last Admin: 06/26/17 21:44 Dose: 300 mls/hr Cefepime HCl 1 gm/ Sodium (Chloride) 100 mls @ 100 mls/hr IVPB DAILY [facility] PRN Reason: Protocol Last Admin: 06/26/17 13:15 Dose: 100 mls/hr Dextrose (Dextrose 5% In Water 1000 Ml) 1,000 mls @ 80 mls/hr IV .[id number] [facility] Stop: 06/27/17 10:55 Last Admin: 06/26/17 23:37 Dose: 80 mls/hr Insulin Human Lispro (Humalog) 0 units SC ACHS [facility] PRN Reason: Protocol Last Admin: 06/27/17 07:43 Dose: 3 units Levalbuterol HCl (Xopenex) 0.63 mg INH RQ8 PRN PRN Reason: Shortness of Breath Pantoprazole Sodium (Protonix Inj) 40 mg IVP DAILY [facility] Last Admin: 06/26/17 09:35 Dose: 40 mg Thiamine HCl (Vitamin B1 Tab) 100 mg PO BID [facility] Last Admin: 06/26/17 17:02 Dose: 100 mg - Labs Labs: 06/26/17 05:50 06/27/17 04:32 PT 14.7 Seconds (9.8-13.1) H 06/24/17 07:45 INR 1.3 (0.9-1.2) H 06/24/17 07:45 APTT 45.1 Seconds (25.6-37.1) H 06/22/17 20:33 - Constitutional Appears: No Acute Distress - Head Exam Head Exam: NORMAL INSPECTION Additional comments: . 5 x .5 cm abrasion over bridge of nose - Eye Exam Eye Exam: Normal appearance - Respiratory Exam Respiratory Exam: Clear to Ausculation Bilateral, NORMAL BREATHING PATTERN. absent: Rhonchi, Wheezes - Cardiovascular Exam Cardiovascular Exam: REGULAR RHYTHM, +S1, +S2 - Extremities Exam Additional comments: Abrasion noted on the dorsum of the left hand - 2+ pitting edema of lower extremity - Neurological Exam Neurological Exam: Alert, Awake, CN II-XII Intact - Skin Skin Exam: Warm Assessment and Plan - Assessment and Plan (Free Text) Assessment: 66 yo ,m, PMhx/o HTN,DM,CKD, chronic left pleural effusion, nephrotic syndrome, anemia and chronic pitting edema, who was brought by EMS to the emergency department complaining of generalized weakness admitted for acute respiratory failure, CHF,sepsis Assesment/Plan 1) Acute Respiratory Failure ( Metabolic acidosis) secondary to overload fluids, pleural effusion, Anasarca - S/P thracocentesis 1.2 L - Patients metabolic acidosis seems to be worsening secondary to worsening renal function - ABG PH: 7.23, CO2: 35, HCO3:15.6, PO2:115. - Pulm has been consulted - C/W nasal canula 2L O2 saturating well - Repeat X Ray shows decrease in size of residual small left pleural effusion post thracentesis. Stable small right pleural effusion. - F/U with pleural fluid, cytology, culture. 2) HCAP ( Resolving) -recent admission - Initial chest Chest X ray shows pulmonary vascular congestion with small right and moderate left pleural effusions. Left basilar infiltrate not excluded. - Repeat X Ray shows decrease in size of residual small left pleural effusion post thoracocentesis. Stable small right pleural effusion. - C/W Maxapine and Linozolid - Repeat chest x ray does not show infilterate 3) Altered mental status - Possibly secondary to the Meteabolic encephalopathy vs UTI - Head CT: Did not show any acute changes. No hemorrhage noted. - Bladder scan: WNL - Urine showed gram positive coagulase negative - C/W Maxapine and Linozolid - BUN and creatine repeated this morning, appear to have stabilized. BUN: from 101 to 94, creatine from 4.1 to 4.0 4) Sepsis ( resolving) - Afebrile SIRS(hypothermia,tachpnea) plus UTI, pleural effusion -D/C Vanco, zosyn. Currently because of nephroxicity -Central line left femoral placed due to hypotension and if needed pressers - with random vanco: 12 - Blood culture x 2 negative - Urine culture showed :Urine showed gram positive coagulase negative >100,000 - C/W ID recommendations - C/W Maxapine and Linozolid 5) Acute diastolic CHF secondary to pulmonary edema and fluid overload -ProBNP 3500 -Echo 05/31/17 normal EF 60-65% - C/W lasix 80 IV BID 6) UTI - Urine was collected on 06/22 on the day of the admission. UTI is not associated with Salazar. leukocyturia, nitrates + - Urine Culture: > 100,000 gram positive coci coagulase negative. Similar to previous admission - Repeat Urine Culture is negative: No Growth. - C/W Maxapine and Linozolid 7) Reccurent Left Pleural effusion - S/P left thoracocentesis: Removed 1.2 L of straw colored fluid. F/u with cultures and cytology - Repeat X Ray shows decrease in size of residual small left pleural effusion post thracentesis. Stable small right pleural effusion. 8) CKD stage 4 w/ new onset of ATN - Worsening of CKD from stage 3 to stage 4 secondary to CHINTAN - Kidney funtion has shown slight improvement. BUN/ Creatinine : 101/4.1 to 94/ 4.0. GFR: 15 - Prelim renal biopsy results from previous results show: Nephrotic syndrome secondary to Diabetic nephropathy: Advised to continue KEVIN inhibition and DM control. - M.8, Phosphorus:9.7 to 8.3 - D/C nephrotoxic medications - F/U with morning CMP 9) DM 2 -home meds hold -SSI 10) HTN - Hydralazine 50 Q8 - Amlodipine 10 mg daily 11) Anemia of chronic disease ( improving) - HB: 9.3, HCT: 28.8 - C/W procrit 12) DVT prophylaxis - Lovenox 30 SC
--- NOTE | 2017-06-27 09:18 | RAD ---
HISTORY: pleural effusion COMPARISON: Portable chest 06/18/2017. FINDINGS: LUNGS: Underlying airspace disease the bilateral lung bases remains difficult to exclude at the left greater than right sides. PLEURA: Residual left pleural effusion unchanged with minimal right pleural effusion again evident. No pneumothorax bilaterally. CARDIOVASCULAR: Diminishing pulmonary venous congestion. Cardiac size remains obscured by left basilar opacity. OSSEOUS STRUCTURES: No significant abnormalities. VISUALIZED UPPER ABDOMEN: Normal. OTHER FINDINGS: None. IMPRESSION: Improving CHF pattern with underlying bibasilar airspace disease not excluded greater the left and right sides. No pneumothorax. Stable residual left pleural effusion. Trace right pleural effusion identified.
[2017-06-27] MEDS: Cefepime 1 GM in Sodium Chloride 0.9% 100 ML IVPB SCH (09:42)
[2017-06-27] MEDS: Enoxaparin 30 mg Syringe SC SCH ×3 (09:42→12:16)
[2017-06-27] MEDS: Linezolid 600 mg in D5W 300 ml 600 MG/300 ML BAG IVPB SCH ×2 (09:49→20:37)
[2017-06-27] MEDS: EPOETIN ALFA 10,000 UNIT/ML ML SC SCH ×2 (09:51→12:15)
--- NOTE | 2017-06-27 12:12 | CP.PCM.PN ---
Subjective - Date & Time of Evaluation Date of Evaluation: 06/27/17 Time of Evaluation: 12:12 - Subjective Subjective: CLINICALLY UNCHANGED NO SOB MENTAL STATUS STILL POOR WILL CONTINUE CURRENT RX Objective - Vital Signs/Intake and Output Vital Signs (last 24 hours): Temp Pulse Resp BP Pulse Ox 97.9 F 55 L 18 163/71 H 98 06/27/17 09:00 06/27/17 09:43 06/27/17 09:00 06/27/17 09:43 06/27/17 09:00 Intake and Output: 06/27/17 06/27/17 06:59 18:59 Intake Total 1200 Output Total 300 Balance 900 - Medications Medications: Current Medications Amlodipine Besylate (Norvasc) 10 mg PO DAILY [facility] Last Admin: 06/27/17 09:43 Dose: 10 mg Calcium Acetate (Phoslo) 2,001 mg PO WM [facility] Last Admin: 06/27/17 08:00 Dose: 2,001 mg Carvedilol (Coreg) 12.5 mg PO Q12 [facility] Last Admin: 06/25/17 10:30 Dose: Not Given Dextrose (Dextrose 50% Inj) 0 ml IV STAT PRN; Protocol PRN Reason: Hypoglycemia Protocol Dextrose (Glutose 15) 0 gm PO ONCE PRN; Protocol PRN Reason: Hypoglycemia Protocol Enoxaparin Sodium (Lovenox) 30 mg SC DAILY [facility] PRN Reason: Protocol Last Admin: 06/27/17 10:13 Dose: Not Given Epoetin Roel (Procrit) 10,000 unit SC MWF [facility] Last Admin: 06/27/17 09:51 Dose: Not Given Ergocalciferol (Drisdol 50,000 Intl Units Cap) 1 cap PO Q7D [facility] Furosemide (Lasix) 80 mg IV BID [facility] Last Admin: 06/27/17 09:41 Dose: 80 mg Glucagon (Glucagen Diagnostic Kit) 0 mg IM STAT PRN; Protocol PRN Reason: Hypoglycemia Protocol Haloperidol Lactate (Haldol) 0.5 mg IM Q6 PRN PRN Reason: Agitation Last Admin: 06/25/17 14:35 Dose: 0.5 mg Hydralazine HCl (Apresoline) 50 mg PO Q8 [facility] Last Admin: 06/27/17 09:40 Dose: Not Given Linezolid (Zyvox 600mg/300ml D5w) 600 mg in 300 mls @ 300 mls/hr IVPB Q12 [facility] PRN Reason: Protocol Last Admin: 06/27/17 09:49 Dose: 300 mls/hr Cefepime HCl 1 gm/ Sodium (Chloride) 100 mls @ 100 mls/hr IVPB DAILY [facility] PRN Reason: Protocol Last Admin: 06/27/17 09:42 Dose: 100 mls/hr Insulin Human Lispro (Humalog) 0 units SC ACHS [facility] PRN Reason: Protocol Last Admin: 06/27/17 07:43 Dose: 3 units Levalbuterol HCl (Xopenex) 0.63 mg INH RQ8 PRN PRN Reason: Shortness of Breath Pantoprazole Sodium (Protonix Inj) 40 mg IVP DAILY [facility] Last Admin: 06/27/17 09:44 Dose: 40 mg Thiamine HCl (Vitamin B1 Tab) 100 mg PO BID [facility] Last Admin: 06/27/17 09:45 Dose: 100 mg - Labs Labs: 06/26/17 05:50 06/27/17 04:32 PT 14.7 Seconds (9.8-13.1) H 06/24/17 07:45 INR 1.3 (0.9-1.2) H 06/24/17 07:45 APTT 45.1 Seconds (25.6-37.1) H 06/22/17 20:33
[2017-06-27] MEDS ORDERED: Bacitracin 500 Units/gm Oint Foilpak UD TOP SCH (13:00)
[2017-06-27] MEDS: Bacitracin OINT 15GM TOP SCH ×2 (13:15→16:39)
--- NOTE | 2017-06-27 13:57 | CP.PCM.PN ---
Subjective - Date & Time of Evaluation Date of Evaluation: 06/27/17 Time of Evaluation: 05:00 - Subjective Subjective: seen on rounds iv rx renewed Objective - Vital Signs/Intake and Output Vital Signs (last 24 hours): Temp Pulse Resp BP Pulse Ox 97.9 F 53 L 18 162/78 H 98 06/27/17 12:16 06/27/17 12:16 06/27/17 12:16 06/27/17 12:16 06/27/17 12:16 Intake and Output: 06/27/17 06/27/17 06:59 18:59 Intake Total 1200 Output Total 300 Balance 900 - Medications Medications: Current Medications Amlodipine Besylate (Norvasc) 10 mg PO DAILY [facility] Last Admin: 06/27/17 09:43 Dose: 10 mg Bacitracin (Bacitracin Oint) 1 applic TOP TID [facility] Calcium Acetate (Phoslo) 2,001 mg PO WM [facility] Last Admin: 06/27/17 12:15 Dose: 2,001 mg Carvedilol (Coreg) 12.5 mg PO Q12 [facility] Last Admin: 06/25/17 10:30 Dose: Not Given Dextrose (Dextrose 50% Inj) 0 ml IV STAT PRN; Protocol PRN Reason: Hypoglycemia Protocol Dextrose (Glutose 15) 0 gm PO ONCE PRN; Protocol PRN Reason: Hypoglycemia Protocol Enoxaparin Sodium (Lovenox) 30 mg SC DAILY [facility] PRN Reason: Protocol Last Admin: 06/27/17 12:16 Dose: 30 mg Epoetin Roel (Procrit) 10,000 unit SC MWF [facility] Last Admin: 06/27/17 12:15 Dose: 10,000 unit Ergocalciferol (Drisdol 50,000 Intl Units Cap) 1 cap PO Q7D [facility] Furosemide (Lasix) 80 mg IV BID [facility] Last Admin: 06/27/17 09:41 Dose: 80 mg Glucagon (Glucagen Diagnostic Kit) 0 mg IM STAT PRN; Protocol PRN Reason: Hypoglycemia Protocol Haloperidol Lactate (Haldol) 0.5 mg IM Q6 PRN PRN Reason: Agitation Last Admin: 06/25/17 14:35 Dose: 0.5 mg Hydralazine HCl (Apresoline) 50 mg PO Q8 [facility] Last Admin: 06/27/17 09:40 Dose: Not Given Linezolid (Zyvox 600mg/300ml D5w) 600 mg in 300 mls @ 300 mls/hr IVPB Q12 [facility] PRN Reason: Protocol Last Admin: 06/27/17 09:49 Dose: 300 mls/hr Cefepime HCl 1 gm/ Sodium (Chloride) 100 mls @ 100 mls/hr IVPB DAILY [facility] PRN Reason: Protocol Last Admin: 06/27/17 09:42 Dose: 100 mls/hr Insulin Human Lispro (Humalog) 0 units SC ACHS [facility] PRN Reason: Protocol Last Admin: 06/27/17 12:41 Dose: 3 units Levalbuterol HCl (Xopenex) 0.63 mg INH RQ8 PRN PRN Reason: Shortness of Breath Pantoprazole Sodium (Protonix Inj) 40 mg IVP DAILY [facility] Last Admin: 06/27/17 09:44 Dose: 40 mg Thiamine HCl (Vitamin B1 Tab) 100 mg PO BID [facility] Last Admin: 06/27/17 09:45 Dose: 100 mg - Labs Labs: 06/26/17 05:50 06/27/17 04:32 PT 14.7 Seconds (9.8-13.1) H 06/24/17 07:45 INR 1.3 (0.9-1.2) H 06/24/17 07:45 APTT 45.1 Seconds (25.6-37.1) H 06/22/17 20:33 - Constitutional Appears: Non-toxic, Chronically Ill - Head Exam Head Exam: NORMOCEPHALIC - Eye Exam Eye Exam: PERRL - ENT Exam ENT Exam: Mucous Membranes Dry - Neck Exam Neck Exam: Normal Inspection - Respiratory Exam Respiratory Exam: Accessory Muscle Use Assessment and Plan (1) Acute renal failure Status: Acute (2) Altered mental status Status: Acute (3) CHF (congestive heart failure) Status: Acute (4) DM2 (diabetes mellitus, type 2) Status: Acute (5) HCAP (healthcare-associated pneumonia) Status: Acute (6) Pleural effusion Status: Acute (7) SIRS (systemic inflammatory response syndrome) Status: Acute (8) Sepsis Status: Acute (9) Acute kidney injury superimposed on chronic kidney disease Status: Acute (10) Alcohol abuse Status: Acute (11) Anasarca Status: Acute (12) Anemia of renal disease Status: Acute (13) Bilateral lower extremity edema Status: Acute
--- NOTE | 2017-06-27 16:12 | CP.PCM.PN ---
Subjective - Date & Time of Evaluation Date of Evaluation: 06/27/17 Time of Evaluation: 12:30 - Subjective Subjective: 66 yo M w/ htn, dm, CKD IIIB secondary to DM nephropathy, nephrotic syndrome, recurrent L pleural effusion, admitted with hypothermia, SIRS/Sepsis, and acute renal failure; Patient still doesn't remember the circumstances involving his being brought to hospital; reports feeling ill but cannot expound further; not having much PO intake per nursing staff; having increased urine output but unable to quantify as he is incontinent at times (eden discontinued); Objective - Vital Signs/Intake and Output Vital Signs (last 24 hours): Temp Pulse Resp BP Pulse Ox 98.9 F 54 L 20 114/58 L 98 06/27/17 16:01 06/27/17 16:01 06/27/17 16:01 06/27/17 16:01 06/27/17 16:01 Intake and Output: 06/27/17 06/27/17 06:59 18:59 Intake Total 1200 Output Total 300 Balance 900 - Medications Medications: Current Medications Amlodipine Besylate (Norvasc) 10 mg PO DAILY [facility] Last Admin: 06/27/17 09:43 Dose: 10 mg Bacitracin (Bacitracin Oint) 1 applic TOP TID [facility] Calcium Acetate (Phoslo) 2,001 mg PO WM [facility] Last Admin: 06/27/17 12:15 Dose: 2,001 mg Carvedilol (Coreg) 12.5 mg PO Q12 [facility] Last Admin: 06/25/17 10:30 Dose: Not Given Dextrose (Dextrose 50% Inj) 0 ml IV STAT PRN; Protocol PRN Reason: Hypoglycemia Protocol Dextrose (Glutose 15) 0 gm PO ONCE PRN; Protocol PRN Reason: Hypoglycemia Protocol Enoxaparin Sodium (Lovenox) 30 mg SC DAILY [facility] PRN Reason: Protocol Last Admin: 06/27/17 12:16 Dose: 30 mg Epoetin Roel (Procrit) 10,000 unit SC MWF [facility] Last Admin: 06/27/17 12:15 Dose: 10,000 unit Ergocalciferol (Drisdol 50,000 Intl Units Cap) 1 cap PO Q7D [facility] Glucagon (Glucagen Diagnostic Kit) 0 mg IM STAT PRN; Protocol PRN Reason: Hypoglycemia Protocol Haloperidol Lactate (Haldol) 0.5 mg IM Q6 PRN PRN Reason: Agitation Last Admin: 06/25/17 14:35 Dose: 0.5 mg Hydralazine HCl (Apresoline) 50 mg PO Q8 [facility] Last Admin: 06/27/17 09:40 Dose: Not Given Linezolid (Zyvox 600mg/300ml D5w) 600 mg in 300 mls @ 300 mls/hr IVPB Q12 [facility] PRN Reason: Protocol Last Admin: 06/27/17 09:49 Dose: 300 mls/hr Cefepime HCl 1 gm/ Sodium (Chloride) 100 mls @ 100 mls/hr IVPB DAILY [facility] PRN Reason: Protocol Last Admin: 06/27/17 09:42 Dose: 100 mls/hr Insulin Human Lispro (Humalog) 0 units SC ACHS [facility] PRN Reason: Protocol Last Admin: 06/27/17 12:41 Dose: 3 units Levalbuterol HCl (Xopenex) 0.63 mg INH RQ8 PRN PRN Reason: Shortness of Breath Pantoprazole Sodium (Protonix Inj) 40 mg IVP DAILY [facility] Last Admin: 06/27/17 09:44 Dose: 40 mg Thiamine HCl (Vitamin B1 Tab) 100 mg PO BID [facility] Last Admin: 06/27/17 09:45 Dose: 100 mg - Labs Labs: 06/26/17 05:50 06/27/17 04:32 PT 14.7 Seconds (9.8-13.1) H 06/24/17 07:45 INR 1.3 (0.9-1.2) H 06/24/17 07:45 APTT 45.1 Seconds (25.6-37.1) H 06/22/17 20:33 - Constitutional Appears: Non-toxic, No Acute Distress - Eye Exam Eye Exam: absent: Scleral icterus - ENT Exam ENT Exam: Mucous Membranes Moist - Respiratory Exam Respiratory Exam: Clear to Ausculation Bilateral. absent: Respiratory Distress - Cardiovascular Exam Cardiovascular Exam: RRR, +S1, +S2 - GI/Abdominal Exam GI & Abdominal Exam: Soft. absent: Distended, Tenderness - Extremities Exam Additional comments: moderately edematous legs; anasarca - Neurological Exam Neurological Exam: Alert, Awake - Psychiatric Exam Psychiatric exam: absent: Agitated - Skin Skin Exam: Warm. absent: Cyanosis Assessment and Plan (1) Acute renal failure Assessment & Plan: CHINTAN on CKD; ATN in the setting of SIRS/Sepsis; serum creatinine at plateau since past 3 days; oliguria improved and CXR showing decreased venous congestion after being put on IV lasix yesterday; relatively stable electrolyte status and low FIO2 requirement (on room air); Need to avoid intravascular volume depletion in the setting of recovery from ATN (can expect polyuria); -hold lasix dose this evening, will re-assess tomorrow; -continue D5W at 80 cc/hr for hypernatremia (improving); will likely switch to 1 /2NS by tomorrow to avoid volume depletion; -avoid nephrotoxic agents Status: Acute (2) Altered mental status Assessment & Plan: Somewhat improved but not at baseline; being treated for sepsis, will look for continued improvement; Status: Acute (3) SIRS (systemic inflammatory response syndrome) Assessment & Plan: With likely HCAP and questionable UTI (repeat urine culture negative though abx had not yet been upgraded); on linezolid and cefepime (no renal dose adjustment needed); no mention of pyelo on CT abd/pelvis; should continue abx per ID; Status: Acute (4) Nephrotic syndrome Assessment & Plan: Secondary to DM nephropathy and possibly NSAIDS; anasarca seen on imaging; makes patient prone to intravascular volume depletion and ATN insults; will avoid very aggressive diuresis; snf will benefit from KEVIN blockade (ARON-I/ ARB) if he can be followed closely and hyperkalemia can be managed; Status: Chronic (5) Anemia Assessment & Plan: Hgb stable but below goal; continue EPO 10,000 u qMWF; Status: Chronic (6) Chronic kidney disease, stage 3 (moderate) Status: Chronic (7) Hypertensive CKD (chronic kidney disease) Assessment & Plan: Blood pressure better controlled after adding hydralazine and diuretics; holding lasix as above, continue hydralazine and amlodipine; Status: Acute
--- NOTE | 2017-06-28 07:06 | CP.PCM.PN ---
Subjective - Date & Time of Evaluation Date of Evaluation: 06/28/17 Time of Evaluation: 07:30 - Subjective Subjective: 66 YO M is seen at bedside. Resting comfortably. Patient is conversating well with good eye contact. Patient has good appetitie however, is no happy with the food he is currently receiving because of the consistency of the food, is requesting . Have spoken to nurse at bedside, and will repeat a Swallow eval. - Patient was noted to have a rectal temperature of 92 F. No shivering or chills noted. Rest of vitals were stable. Objective - Vital Signs/Intake and Output Vital Signs (last 24 hours): Temp Pulse Resp BP Pulse Ox 96.8 F L 57 L 18 172/76 H 95 06/28/17 04:42 06/28/17 05:23 06/28/17 04:42 06/28/17 05:23 06/28/17 04:42 Intake and Output: 06/28/17 06/28/17 06:59 18:59 Intake Total 1300 Output Total 200 Balance 1100 - Medications Medications: Current Medications Amlodipine Besylate (Norvasc) 10 mg PO DAILY [facility] Last Admin: 06/27/17 09:43 Dose: 10 mg Bacitracin (Bacitracin Oint) 1 applic TOP TID [facility] Last Admin: 06/27/17 16:39 Dose: 1 applic Calcium Acetate (Phoslo) 2,001 mg PO WM [facility] Last Admin: 06/27/17 18:02 Dose: 2,001 mg Dextrose (Dextrose 50% Inj) 0 ml IV STAT PRN; Protocol PRN Reason: Hypoglycemia Protocol Dextrose (Glutose 15) 0 gm PO ONCE PRN; Protocol PRN Reason: Hypoglycemia Protocol Enoxaparin Sodium (Lovenox) 30 mg SC DAILY [facility] PRN Reason: Protocol Last Admin: 06/27/17 12:16 Dose: 30 mg Epoetin Roel (Procrit) 10,000 unit SC MWF [facility] Last Admin: 06/27/17 12:15 Dose: 10,000 unit Ergocalciferol (Drisdol 50,000 Intl Units Cap) 1 cap PO Q7D [facility] Glucagon (Glucagen Diagnostic Kit) 0 mg IM STAT PRN; Protocol PRN Reason: Hypoglycemia Protocol Haloperidol Lactate (Haldol) 0.5 mg IM Q6 PRN PRN Reason: Agitation Last Admin: 06/25/17 14:35 Dose: 0.5 mg Hydralazine HCl (Apresoline) 50 mg PO Q8 [facility] Last Admin: 06/28/17 05:23 Dose: 50 mg Linezolid (Zyvox 600mg/300ml D5w) 600 mg in 300 mls @ 300 mls/hr IVPB Q12 [facility] PRN Reason: Protocol Last Admin: 06/27/17 20:37 Dose: 300 mls/hr Cefepime HCl 1 gm/ Sodium (Chloride) 100 mls @ 100 mls/hr IVPB DAILY [facility] PRN Reason: Protocol Last Admin: 06/27/17 09:42 Dose: 100 mls/hr Dextrose (Dextrose 5% In Water 1000 Ml) 1,000 mls @ 80 mls/hr IV .[id number] [facility] Stop: 06/28/17 16:28 Last Admin: 06/27/17 16:46 Dose: 80 mls/hr Insulin Human Lispro (Humalog) 0 units SC ACHS [facility] PRN Reason: Protocol Last Admin: 06/27/17 22:21 Dose: Not Given Levalbuterol HCl (Xopenex) 0.63 mg INH RQ8 PRN PRN Reason: Shortness of Breath Pantoprazole Sodium (Protonix Inj) 40 mg IVP DAILY [facility] Last Admin: 06/27/17 09:44 Dose: 40 mg Thiamine HCl (Vitamin B1 Tab) 100 mg PO BID [facility] Last Admin: 06/27/17 16:38 Dose: 100 mg - Labs Labs: 06/26/17 05:50 06/27/17 04:32 PT 14.7 Seconds (9.8-13.1) H 06/24/17 07:45 INR 1.3 (0.9-1.2) H 06/24/17 07:45 APTT 45.1 Seconds (25.6-37.1) H 06/22/17 20:33 - Constitutional Appears: No Acute Distress - Head Exam Head Exam: NORMAL INSPECTION - Eye Exam Eye Exam: Normal appearance - Neck Exam Neck Exam: Full ROM, Normal Inspection - Respiratory Exam Respiratory Exam: Decreased Breath Sounds, Clear to Ausculation Bilateral, NORMAL BREATHING PATTERN. absent: Rhonchi, Wheezes Additional comments: Crackles heard at base of lungs. Also decreased breath sounds at base of lungs b /l - Cardiovascular Exam Cardiovascular Exam: REGULAR RHYTHM, +S1, +S2 - GI/Abdominal Exam GI & Abdominal Exam: Soft, Normal Bowel Sounds. absent: Tenderness - Extremities Exam Extremities Exam: Normal Inspection. absent: Calf Tenderness - Neurological Exam Neurological Exam: Alert, Awake, CN II-XII Intact - Skin Skin Exam: Dry Additional comments: scab over nose. Assessment and Plan - Assessment and Plan (Free Text) Assessment: 66 yo ,m, PMhx/o HTN,DM,CKD, chronic left pleural effusion, nephrotic syndrome, anemia and chronic pitting edema, who was brought by EMS to the emergency department complaining of generalized weakness admitted for acute respiratory failure, CHF,sepsis, Assesment/Plan 1) New onset of Hypothermia - Rectal temperature of 92 degrees F - Warming fluids were ordered - Bear hugger ordered - Neuro consulted - Repeat EKG - F/U with Folate, Free T4, Prolactin, Vit B12, Cortisol, Ionized Calcium, VBG, lactic acid, MRI, Blood culture, Urine Culture. 2) Altered mental status ( improving) - Possibly secondary to the Metabolic encephalopathy vs UTI - Head CT: Did not show any acute changes. No hemorrhage noted. - Bladder scan: WNL - Urine showed gram positive coagulase negative - C/W Neuro recommendations - C/W Maxapine and Linozolid 3) Indolent Multiple myeloma - Has monoclonal gammopathy but wasn't at level of MM per previous bone marrow; - Consider consulting heme onc, since patients new onset of hypothermia 4) Sepsis ( resolving) - Afebrile - SIRS(hypothermia,tachpnea) plus UTI, on admission - Initial chest Chest X ray shows pulmonary vascular congestion with small right and moderate left pleural effusions. Left basilar infiltrate not excluded. - Repeat X Ray shows decrease in size of residual small left pleural effusion post thoracocentesis. Stable small right pleural effusion. - Blood culture x 2 negative - Urine culture showed :Urine showed gram positive coagulase negative >100,000 - C/W ID recommendations - C/W Maxapine and Linozolid 5) Acute diastolic CHF secondary to pulmonary edema and fluid overload -ProBNP 3500 -Echo 05/31/17 normal EF 60-65% - D/C lasix as per nephro 6) UTI ( Resolved) - Initial Urine Culture: > 100,000 gram positive coci coagulase negative. Similar to previous admission - Repeat Urine Culture is negative: No Growth. - C/W Maxapine and Linozolid 7) Recurrent Left Pleural effusion - S/P left thoracocentesis: Removed 1.2 L of straw colored fluid. F/u with cultures and cytology - Repeat X Ray shows decrease in size of residual small left pleural effusion post thracentesis. Stable small right pleural effusion. - Exudative pleural fluid: Total serum Protein:5.5, Plerual fluid protein: 2, serum LDH: 689, Pleural fluid LDH: 323: Positive lights criteria 8) CKD stage 4 w/ new onset of ATN - Worsening of CKD from stage 3 to stage 4 secondary to CHINTAN - Kidney function has shown slight improvement. BUN/ Creatinine : 90/3.7 - Prelim renal biopsy results from previous results show: Nephrotic syndrome secondary to Diabetic nephropathy: Advised to continue KEVIN inhibition and DM control. - M.5, Phosphorus:7.3 ( trending down) - F/U with morning CMP 8) DM 2 -home meds hold -SSI 9) HTN - Hydralazine 50 Q8 - Amlodipine 10 mg daily 10) Anemia of chronic disease ( improving) - HB: 8.8, HCT: 27.7 - Bone marrow biopsy showed findings consistent with multiple myeloma - C/W procrit 11) DVT prophylaxis - Lovenox 30 SC
[2017-06-28 07:34] LABS: ALB/GLOB RATIO 0.8 (1.0-2.1); ALBUMIN 2.3 g/dL (3.5-5.0); CALCIUM 8.2 mg/dL (8.4-10.2)
[2017-06-28 07:42] LABS: IRON 39 ug/dL (49-181)
[2017-06-28 07:51] LABS: TOTAL IRON BINDING CAPACITY 193 ug/dL (250-450)
[2017-06-28 07:59] LABS: % IRON SATURATION 20 % (20-55)
[2017-06-28 08:17] LABS: BASO # 0.1 K/uL (0.0-0.2); BASO % 0.7 % (0.0-2.0); EOS # 0.1 K/uL (0.0-0.7); EOS % 1.5 % (0.0-4.0); HEMOGLOBIN 8.8 g/dL (12.0-18.0); LYMPH # 0.7 K/uL (1.0-4.3); MEAN CELL VOLUME 94.1 fl (80.0-94.0); MEAN CORPUSCULAR HGB CONC 31.9 g/dL (33.0-37.0); MEAN PLATELET VOLUME 9.8 fl (7.2-11.7); MONO # 0.4 K/uL (0.0-0.8); MONO % 4.6 % (0.0-10.0); NEUT # 7.8 K/uL (1.8-7.0); NEUT % 85.2 % (50.0-75.0); NRBC % 0.9 % (0.0-0.0); PLATELET COUNT 147 K/uL (130-400); RBC 2.95 Mil/uL (4.40-5.90); RED CELL DISTRIBUTION WIDTH 17.8 % (11.5-14.5); WHITE BLOOD COUNT 9.1 K/uL (4.8-10.8)
[2017-06-28] MEDS: Bacitracin OINT 15GM TOP SCH ×3 (08:38→17:42)
[2017-06-28] MEDS: Insulin Lispro (humaLOG) 100 Units/ml Inj SC SCH ×4 (08:38→22:37)
[2017-06-28] MEDS: Enoxaparin 30 mg Syringe SC SCH (08:39)
[2017-06-28] MEDS: Linezolid 600 mg in D5W 300 ml 600 MG/300 ML BAG IVPB SCH ×2 (08:40→20:57)
[2017-06-28] MEDS: Cefepime 1 GM in Sodium Chloride 0.9% 100 ML IVPB SCH (09:10)
[2017-06-28 11:40] LABS: BANDS 2 % (0-2); EOSINOPHIL 2 % (0-7); LYMPHOCYTE 9 % (20-50); METAMYELOCYTE 3 % (0-0); MONOCYTE 6 % (0-10); NEUTROPHIL 78 % (42-75); TOTAL CELLS COUNTED 100
[2017-06-28 11:41] LABS: ANISOCYTOSIS SLIGHT; BURR CELLS MODERATE; PLATELET ESTIMATE NORMAL (NORMAL); POIKILOCYTOSIS SLIGHT; SCHISTOCYTES SLIGHT; TOXIC GRANULATION PRESENT
[2017-06-28 11:42] LABS: GIANT PLATELETS PRESENT; LARGE PLATELETS PRESENT
--- NOTE | 2017-06-28 12:10 | CP.PCM.PN ---
Subjective - Date & Time of Evaluation Date of Evaluation: 06/28/17 Time of Evaluation: 12:13 - Subjective Subjective: NO CHEST PAINS/SOB HYPOTHERMIC AND BRADYCARDIC TODAY RESPONDS APPROPRIATELY TO VERBAL COMMANDS Objective - Vital Signs/Intake and Output Vital Signs (last 24 hours): Temp Pulse Resp BP Pulse Ox 92 F L 57 L 20 161/68 H 92 L 06/28/17 08:35 06/28/17 09:09 06/28/17 08:00 06/28/17 09:09 06/28/17 08:00 Intake and Output: 06/28/17 06/28/17 06:59 18:59 Intake Total 1300 Output Total 200 Balance 1100 - Medications Medications: Current Medications Amlodipine Besylate (Norvasc) 10 mg PO DAILY [facility] Last Admin: 06/28/17 09:08 Dose: Not Given Bacitracin (Bacitracin Oint) 1 applic TOP TID [facility] Last Admin: 06/28/17 08:38 Dose: 1 applic Calcium Acetate (Phoslo) 2,001 mg PO WM [facility] Last Admin: 06/28/17 08:37 Dose: Not Given Dextrose (Dextrose 50% Inj) 0 ml IV STAT PRN; Protocol PRN Reason: Hypoglycemia Protocol Dextrose (Glutose 15) 0 gm PO ONCE PRN; Protocol PRN Reason: Hypoglycemia Protocol Enoxaparin Sodium (Lovenox) 30 mg SC DAILY [facility] PRN Reason: Protocol Last Admin: 06/28/17 08:39 Dose: Not Given Epoetin Roel (Procrit) 10,000 unit SC MWF [facility] Last Admin: 06/27/17 12:15 Dose: 10,000 unit Ergocalciferol (Drisdol 50,000 Intl Units Cap) 1 cap PO Q7D [facility] Glucagon (Glucagen Diagnostic Kit) 0 mg IM STAT PRN; Protocol PRN Reason: Hypoglycemia Protocol Haloperidol Lactate (Haldol) 0.5 mg IM Q6 PRN PRN Reason: Agitation Last Admin: 06/25/17 14:35 Dose: 0.5 mg Hydralazine HCl (Apresoline) 50 mg PO Q8 [facility] Last Admin: 06/28/17 09:09 Dose: Not Given Linezolid (Zyvox 600mg/300ml D5w) 600 mg in 300 mls @ 300 mls/hr IVPB Q12 [facility] PRN Reason: Protocol Last Admin: 06/28/17 08:40 Dose: 300 mls/hr Cefepime HCl 1 gm/ Sodium (Chloride) 100 mls @ 100 mls/hr IVPB DAILY [facility] PRN Reason: Protocol Last Admin: 06/28/17 09:10 Dose: 100 mls/hr Dextrose (Dextrose 5% In Water 1000 Ml) 1,000 mls @ 80 mls/hr IV .[id number] [facility] Stop: 06/28/17 16:28 Last Admin: 06/28/17 05:00 Dose: Not Given Insulin Human Lispro (Humalog) 0 units SC ACHS [facility] PRN Reason: Protocol Last Admin: 06/28/17 08:38 Dose: 2 units Levalbuterol HCl (Xopenex) 0.63 mg INH RQ8 PRN PRN Reason: Shortness of Breath Pantoprazole Sodium (Protonix Inj) 40 mg IVP DAILY [facility] Last Admin: 06/28/17 08:37 Dose: 40 mg Thiamine HCl (Vitamin B1 Tab) 100 mg PO BID [facility] Last Admin: 06/28/17 08:37 Dose: Not Given - Labs Labs: 06/28/17 06:30 06/28/17 06:30 PT 14.7 Seconds (9.8-13.1) H 06/24/17 07:45 INR 1.3 (0.9-1.2) H 06/24/17 07:45 APTT 45.1 Seconds (25.6-37.1) H 06/22/17 20:33 - Constitutional Appears: Chronically Ill - Head Exam Head Exam: ATRAUMATIC, NORMAL INSPECTION, NORMOCEPHALIC - Eye Exam Eye Exam: EOMI, Normal appearance, PERRL Pupil Exam: NORMAL ACCOMODATION, PERRL - ENT Exam ENT Exam: Mucous Membranes Moist, Normal Exam - Neck Exam Neck Exam: Full ROM, Normal Inspection. absent: Lymphadenopathy - Respiratory Exam Respiratory Exam: Decreased Breath Sounds, Prolonged Expiratory Phase, Rales, NORMAL BREATHING PATTERN - Cardiovascular Exam Cardiovascular Exam: REGULAR RHYTHM, +S1, +S2. absent: Murmur - GI/Abdominal Exam GI & Abdominal Exam: Soft, Normal Bowel Sounds. absent: Tenderness - Rectal Exam Rectal Exam: NORMAL INSPECTION - Extremities Exam Extremities Exam: Full ROM, Normal Capillary Refill, Normal Inspection. absent : Joint Swelling, Pedal Edema - Back Exam Back Exam: NORMAL INSPECTION - Neurological Exam Neurological Exam: Alert, Awake, CN II-XII Intact - Psychiatric Exam Psychiatric exam: Normal Affect, Normal Mood - Skin Skin Exam: Dry, Intact, Normal Color, Warm Assessment and Plan - Assessment and Plan (Free Text) Assessment: ESRD PLEURAL EFFUSIONS STABLE HYPOTHERMIA/BRADYCARDIA-?ETIOLOGY Plan: ADD DUONEB TO RX CONTINUE PRESENT RX
--- NOTE | 2017-06-28 12:50 | CARD ---
APPROVED REPORT EKG Measurement Heart [id number] <Conclusion> Sinus bradycardia with 1st degree AV block Prolonged QT Abnormal ECG
[2017-06-28] MEDS ORDERED: Chlorhexidine Gluconate 1 APPL/PKT TP ONE ×2 (12:56→17:09)
--- NOTE | 2017-06-28 13:11 | CP.PCM.PN ---
Subjective - Date & Time of Evaluation Date of Evaluation: 06/28/17 Time of Evaluation: 13:09 - Subjective Subjective: 66 yo M w/ pmh of htn, dm, recurrent L pleural effusion, CKD IIIB w/ nephrotic syndrome, admitted with hypothermia, AMS and CHINTAN; Patient again hypothermic today with T 92 deg; not consuming much PO intake; reports being in pain all over his body; Objective - Vital Signs/Intake and Output Vital Signs (last 24 hours): Temp Pulse Resp BP Pulse Ox 92 F L 52 L 18 141/66 100 06/28/17 08:35 06/28/17 12:30 06/28/17 12:30 06/28/17 12:30 06/28/17 12:30 Intake and Output: 06/28/17 06/28/17 06:59 18:59 Intake Total 1300 Output Total 200 Balance 1100 - Medications Medications: Current Medications Albuterol/Ipratropium (Duoneb 3 Mg/0.5 Mg (3 Ml) Ud) 3 ml INH RQID [facility] Amlodipine Besylate (Norvasc) 10 mg PO DAILY [facility] Last Admin: 06/28/17 09:08 Dose: Not Given Bacitracin (Bacitracin Oint) 1 applic TOP TID [facility] Last Admin: 06/28/17 12:54 Dose: 1 applic Calcium Acetate (Phoslo) 2,001 mg PO WM [facility] Last Admin: 06/28/17 12:55 Dose: Not Given Dextrose (Dextrose 50% Inj) 0 ml IV STAT PRN; Protocol PRN Reason: Hypoglycemia Protocol Dextrose (Glutose 15) 0 gm PO ONCE PRN; Protocol PRN Reason: Hypoglycemia Protocol Enoxaparin Sodium (Lovenox) 30 mg SC DAILY [facility] PRN Reason: Protocol Last Admin: 06/28/17 08:39 Dose: Not Given Epoetin Roel (Procrit) 10,000 unit SC MWF [facility] Last Admin: 06/27/17 12:15 Dose: 10,000 unit Ergocalciferol (Drisdol 50,000 Intl Units Cap) 1 cap PO Q7D [facility] Glucagon (Glucagen Diagnostic Kit) 0 mg IM STAT PRN; Protocol PRN Reason: Hypoglycemia Protocol Haloperidol Lactate (Haldol) 0.5 mg IM Q6 PRN PRN Reason: Agitation Last Admin: 06/25/17 14:35 Dose: 0.5 mg Hydralazine HCl (Apresoline) 50 mg PO Q8 [facility] Last Admin: 06/28/17 09:09 Dose: Not Given Linezolid (Zyvox 600mg/300ml D5w) 600 mg in 300 mls @ 300 mls/hr IVPB Q12 [facility] PRN Reason: Protocol Last Admin: 06/28/17 08:40 Dose: 300 mls/hr Cefepime HCl 1 gm/ Sodium (Chloride) 100 mls @ 100 mls/hr IVPB DAILY [facility] PRN Reason: Protocol Last Admin: 06/28/17 09:10 Dose: 100 mls/hr Sodium Chloride (Sodium Chloride 0.45%) 1,000 mls @ 80 mls/hr IV .[id number] [facility] Stop: 06/29/17 13:59 Insulin Human Lispro (Humalog) 0 units SC ACHS [facility] PRN Reason: Protocol Last Admin: 06/28/17 12:54 Dose: 3 units Levalbuterol HCl (Xopenex) 0.63 mg INH RQ8 PRN PRN Reason: Shortness of Breath Pantoprazole Sodium (Protonix Inj) 40 mg IVP DAILY [facility] Last Admin: 06/28/17 08:37 Dose: 40 mg Thiamine HCl (Vitamin B1 Tab) 100 mg PO BID [facility] Last Admin: 06/28/17 08:37 Dose: Not Given - Labs Labs: 06/28/17 06:30 06/28/17 06:30 PT 14.7 Seconds (9.8-13.1) H 06/24/17 07:45 INR 1.3 (0.9-1.2) H 06/24/17 07:45 APTT 45.1 Seconds (25.6-37.1) H 06/22/17 20:33 - Constitutional Appears: No Acute Distress - Eye Exam Eye Exam: absent: Scleral icterus - ENT Exam ENT Exam: Mucous Membranes Moist - Respiratory Exam Respiratory Exam: Clear to Ausculation Bilateral. absent: Respiratory Distress Additional comments: Decreased breath sounds at bases, more so on L; - Cardiovascular Exam Cardiovascular Exam: Bradycardia, +S1, +S2 - GI/Abdominal Exam GI & Abdominal Exam: Soft, Tenderness - Exam Additional comments: scrotal edema; - Extremities Exam Additional comments: moderately edematous, anasarca; - Neurological Exam Neurological Exam: Alert, Awake - Psychiatric Exam Psychiatric exam: absent: Agitated - Skin Skin Exam: Warm. absent: Cyanosis Assessment and Plan (1) Acute renal failure Assessment & Plan: CHINTAN on CKD; ATN, resolving slowly; urine output unclear with patient sometimes incontinent; relatively stable electrolyte status and FIO2 requirement; hypernatremia continues to improve on D5W but patient himself not consuming much PO intake; Again hypothermic, this time mild, but was significantly worse on presentation; may have pushed him toward ATN; -changing IVF to 1/2NS at 80 cc/hr to avoid intravascular volume depletion; -Avoid nephrotoxic agents Status: Acute (2) Hypothermia Assessment & Plan: Very concerning for underlying pathology that is not yet diagnosed; -Neuro sending workup for hypothermia; will discuss with ID regarding possible sepsis (blood cultures neg); -Has monoclonal gammopathy but wasn't at level of MM per previous bone marrow; consider recalling hematology; -Checking thiamine level, TSH, morning cortisol; Status: Acute (3) Altered mental status Status: Acute (4) SIRS (systemic inflammatory response syndrome) Status: Acute (5) Nephrotic syndrome Status: Chronic (6) Anemia Status: Chronic (7) Chronic kidney disease, stage 3 (moderate) Status: Chronic (8) Hypertensive CKD (chronic kidney disease) Status: Acute
[2017-06-28] MEDS ORDERED: Sodium Chloride 0.9% 1,000 ML IV SCH (14:00)
[2017-06-28] MEDS: Sodium Chloride 0.45% 1,000 ML IV SCH (15:06)
--- NOTE | 2017-06-28 15:14 | CP.PCM.CON ---
History of Present Illness - History of Present Illness History of Present Illness: CONSULT DICTATED METABOLIC ENCEPHALOPATHY I DOUBT CENTRAL CAUSE FOR HIS PRESENTING PROBLEM TREAT HIM WITH PROPER ANTIBIOTICS , HYDRATION AND CORRECT ELECTROLYTES MRI BRAIN AND EEG Past Patient History - Infectious Disease Hx of Infectious Diseases: None - Tetanus Immunizations Tetanus Immunization: Unknown - Past Medical History & Family History Past Medical History?: Yes - Past Social History Alcohol: None Drugs: Denies - CARDIAC Hx Cardiac Disorders: Yes Hx Congestive Heart Failure: Yes Hx Hypercholesterolemia: No Hx Hypertension: Yes - PULMONARY Hx Chronic Obstructive Pulmonary Disease (COPD): No - NEUROLOGICAL HX Cerebrovascular Accident: No - HEENT Hx HEENT Problems: No - RENAL Hx Renal Failure: Yes - ENDOCRINE/METABOLIC Hx Diabetes Mellitus Type 1: No Hx Diabetes Mellitus Type 2: Yes Hx Hypothyroidism: No - HEMATOLOGICAL/ONCOLOGICAL Hx Anemia: Yes Hx Human Immunodeficiency Virus (HIV): No Hx Sickle Cell Disease: No - INTEGUMENTARY Hx Dermatological Problems: No - MUSCULOSKELETAL/RHEUMATOLOGICAL Hx Arthritis: No Hx Rheumatoid Arthritis: No - GASTROINTESTINAL Hx Crohn's Disease: No Hx Diverticulitis: No Hx Gall Bladder Disease: No Hx Gastritis: No Hx Pancreatitis: No - GENITOURINARY/GYNECOLOGICAL Hx Genitourinary Disorders: No - PSYCHIATRIC Hx Anxiety: Yes Hx Bipolar Disorder: Yes Hx Depression: Yes Hx Paranoia: No Hx Post Traumatic Stress Disorder: No Hx Schizophrenia: No - SURGICAL HISTORY Hx Surgeries: No - ANESTHESIA Hx Anesthesia: Yes Hx Anesthesia Reactions: No Hx Malignant Hyperthermia: No Meds Allergies/Adverse Reactions: Allergies Allergy/AdvReac Type Severity Reaction Status Date / Time No Known Allergies Allergy Verified 05/21/17 16:02 - Medications Medications: Current Medications Albuterol/Ipratropium (Duoneb 3 Mg/0.5 Mg (3 Ml) Ud) 3 ml INH RQID [facility] Amlodipine Besylate (Norvasc) 10 mg PO DAILY [facility] Last Admin: 06/28/17 09:08 Dose: Not Given Bacitracin (Bacitracin Oint) 1 applic TOP TID [facility] Last Admin: 06/28/17 12:54 Dose: 1 applic Calcium Acetate (Phoslo) 2,001 mg PO WM [facility] Last Admin: 06/28/17 12:55 Dose: Not Given Dextrose (Dextrose 50% Inj) 0 ml IV STAT PRN; Protocol PRN Reason: Hypoglycemia Protocol Dextrose (Glutose 15) 0 gm PO ONCE PRN; Protocol PRN Reason: Hypoglycemia Protocol Enoxaparin Sodium (Lovenox) 30 mg SC DAILY [facility] PRN Reason: Protocol Last Admin: 06/28/17 08:39 Dose: Not Given Epoetin Roel (Procrit) 10,000 unit SC MWF [facility] Last Admin: 06/27/17 12:15 Dose: 10,000 unit Ergocalciferol (Drisdol 50,000 Intl Units Cap) 1 cap PO Q7D [facility] Glucagon (Glucagen Diagnostic Kit) 0 mg IM STAT PRN; Protocol PRN Reason: Hypoglycemia Protocol Haloperidol Lactate (Haldol) 0.5 mg IM Q6 PRN PRN Reason: Agitation Last Admin: 06/25/17 14:35 Dose: 0.5 mg Hydralazine HCl (Apresoline) 50 mg PO Q8 [facility] Last Admin: 06/28/17 09:09 Dose: Not Given Linezolid (Zyvox 600mg/300ml D5w) 600 mg in 300 mls @ 300 mls/hr IVPB Q12 [facility] PRN Reason: Protocol Last Admin: 06/28/17 08:40 Dose: 300 mls/hr Cefepime HCl 1 gm/ Sodium (Chloride) 100 mls @ 100 mls/hr IVPB DAILY [facility] PRN Reason: Protocol Last Admin: 06/28/17 09:10 Dose: 100 mls/hr Sodium Chloride (Sodium Chloride 0.45%) 1,000 mls @ 80 mls/hr IV .[id number] [facility] Stop: 06/29/17 13:59 Last Admin: 06/28/17 15:06 Dose: 80 mls/hr Sodium Chloride (Sodium Chloride 0.9%) 1,000 mls @ 80 mls/hr IV .[id number] [facility] Stop: 06/29/17 13:52 Last Admin: 06/28/17 15:08 Dose: Not Given Insulin Human Lispro (Humalog) 0 units SC ACHS [facility] PRN Reason: Protocol Last Admin: 06/28/17 12:54 Dose: 3 units Levalbuterol HCl (Xopenex) 0.63 mg INH RQ8 PRN PRN Reason: Shortness of Breath Pantoprazole Sodium (Protonix Inj) 40 mg IVP DAILY [facility] Last Admin: 06/28/17 08:37 Dose: 40 mg Thiamine HCl (Vitamin B1 Tab) 100 mg PO BID [facility] Last Admin: 06/28/17 08:37 Dose: Not Given Results - Vital Signs Recent Vital Signs: Last Vital Signs Temp 90.7 F L 06/28/17 13:00 Pulse 52 L 06/28/17 12:30 Resp 18 06/28/17 12:30 BP 141/66 06/28/17 12:30 Pulse Ox 100 06/28/17 12:30 - Labs Result Diagrams: 06/28/17 06:30 06/28/17 06:30 Labs: Laboratory Results - last 24 hr 06/27/17 06/27/17 06/28/17 16:33 22:06 05:19 WBC RBC Hgb Hct MCV MCH MCHC RDW Plt Count MPV Neut % (Auto) Lymph % (Auto) [place] % (Auto) Eos % (Auto) Baso % (Auto) Neut # Lymph # [place] # Eos # Baso # Neutrophils % (Manual) Band Neutrophils % Lymphocytes % (Manual) Monocytes % (Manual) Eosinophils % (Manual) Metamyelocytes % Toxic Granulation Platelet Estimate Large Platelets Giant Platelets Poikilocytosis (manual Anisocytosis (manual) Macrocytosis (manual) [place] Cells Schistocytes Sodium Potassium Chloride Carbon Dioxide Anion Gap BUN Creatinine Est GFR ( Amer) Est GFR (Non-Af Amer) POC Glucose (mg/dL) 207 H 223 H 201 H Random Glucose Calcium Phosphorus Magnesium Iron TIBC % Saturation Ferritin Total Bilirubin AST ALT Alkaline Phosphatase Ammonia Total Creatine Kinase Total Protein Albumin Globulin Albumin/Globulin Ratio 06/28/17 06/28/17 06/28/17 06:30 06:30 06:30 WBC 9.1 RBC 2.95 L Hgb 8.8 L Hct 27.7 L MCV 94.1 H MCH 30.0 MCHC 31.9 L RDW 17.8 H Plt Count 147 MPV 9.8 Neut % (Auto) 85.2 H Lymph % (Auto) 8.0 L [place] % (Auto) 4.6 Eos % (Auto) 1.5 Baso % (Auto) 0.7 Neut # 7.8 H Lymph # 0.7 L [place] # 0.4 Eos # 0.1 Baso # 0.1 Neutrophils % (Manual) 78 H Band Neutrophils % 2 Lymphocytes % (Manual) 9 L Monocytes % (Manual) 6 Eosinophils % (Manual) 2 Metamyelocytes % 3 H Toxic Granulation Present Platelet Estimate Normal Large Platelets Present Giant Platelets Present Poikilocytosis (manual Slight Anisocytosis (manual) Slight Macrocytosis (manual) Slight [place] Cells Moderate Schistocytes Slight Sodium 144 Potassium 4.1 Chloride 119 H Carbon Dioxide 19 L Anion Gap 10 BUN 90 H Creatinine 3.7 H Est GFR ( Amer) 20 Est GFR (Non-Af Amer) 17 POC Glucose (mg/dL) Random Glucose 244 H Calcium 8.2 L Phosphorus 7.3 H Magnesium 2.5 H Iron 39 L TIBC 193 L % Saturation 20 Ferritin 301.0 Total Bilirubin 0.1 L AST 20 ALT 46 Alkaline Phosphatase 139 H Ammonia Total Creatine Kinase Total Protein 5.1 L Albumin 2.3 L Globulin 2.8 Albumin/Globulin Ratio 0.8 L 06/28/17 06/28/17 06/28/17 11:28 13:49 13:49 WBC RBC Hgb Hct MCV MCH MCHC RDW Plt Count MPV Neut % (Auto) Lymph % (Auto) [place] % (Auto) Eos % (Auto) Baso % (Auto) Neut # Lymph # [place] # Eos # Baso # Neutrophils % (Manual) Band Neutrophils % Lymphocytes % (Manual) Monocytes % (Manual) Eosinophils % (Manual) Metamyelocytes % Toxic Granulation Platelet Estimate Large Platelets Giant Platelets Poikilocytosis (manual Anisocytosis (manual) Macrocytosis (manual) [place] Cells Schistocytes Sodium Potassium Chloride Carbon Dioxide Anion Gap BUN Creatinine Est GFR ( Amer) Est GFR (Non-Af Amer) POC Glucose (mg/dL) 212 H Random Glucose Calcium Phosphorus Magnesium Iron TIBC % Saturation Ferritin Total Bilirubin AST ALT Alkaline Phosphatase Ammonia < 9 L Total Creatine Kinase 29 L Total Protein Albumin Globulin Albumin/Globulin Ratio
--- NOTE | 2017-06-28 16:59 | CON ---
DATE: 06/28/2017 REASON FOR THE CONSULTATION: Change in mental status. CHIEF COMPLAINT: The patient was brought into [facility] for low temperature and loss of consciousness. From neurological point of view, I was called in to evaluate him for further management. HISTORY OF PRESENT ILLNESS: Mr. Kris Durand is a 66-year-old right-handed male, who [place], being brought in to [facility] with history that he was found in the garage with change in mental status and subtherapeutic temperature. During the hospitalization, the patient was found to have his mentation which is abnormal and poor thermoregulation and I was called in to evaluate him for further management. PAST MEDICAL HISTORY: Hypertension, diabetes mellitus, nephrotic syndrome, chronic kidney disease and chronic left pleural effusion. SURGICAL HISTORY: Thoracocentesis and renal biopsy in the past. PERSONAL HISTORY: Denies smoking or alcohol use. ALLERGIES: NO KNOWN ALLERGIES. REVIEW OF SYSTEMS: Twelve-point systems had been reviewed. From neuro, change in mental status. MEDICATIONS: Apresoline, Drisdol, DuoNeb, glucagon, Haldol, Lovenox, Norvasc, Procrit, Protonix and Zyvox. PHYSICAL EXAMINATION: VITAL SIGNS: Blood pressure 141/66, mean pressure 91, respiratory rate 18, temperature 90.7 Fahrenheit rectal, pulse rate is 52. The patient is under hyperthermic blanket. GENERAL: The patient is awake, alert, oriented to person. NECK: Supple. No carotid bruit. HEART: Sounds are regular. EXTREMITIES: Both legs are externally rotated with 3+ pitting edema. NEUROLOGICAL: The patient is examined in the presence of an airplane fueler. He knows he is in the hospital, he does not know the name. No history of headache. He follows 2-step command. No right and left confusion. He knows the president. He could not be able to do simple calculation. He could be able to move his both upper extremities as per the command. He could not be able to move his lower extremities. Cranial nerve examination: Responds to visual threat. Pupils react to light. Extraocular movement normal. No nystagmus. No facial sensory deficit. No facial asymmetry. Hearing is normal. Tongue is midline. Good gag. Motor examination: He could be able to lift both the upper extremities against gravity, mild sensory tremor, no asterixis. Tone is normal in both upper extremities. Tone is increased in both lower extremities and 3+ pitting edema. Deep tendon reflexes, biceps, brachialis, triceps 3+, both the knees are absent, both ankles are absent. Plantars are upgoing on both sides. Sensory examination: Decreased position sense and temperature sense with decreased pinprick sensation in both lower extremities consistent with the neuropathy. Coordination and gait are deferred at this time. WORKUP: CT of the head reviewed by me. No acute pathology is noted. Mild atrophy noted. Blood workup: WBC 9.1, hemoglobin 8.8, hematocrit 27.7, platelet 147. Sodium 144, potassium 4.1, chloride 109, bicarbonate 19, BUN 90, creatinine 3.7, GFR 17, glucose 212, calcium 8.2, phosphorus 7.3, magnesium 2.5, alkaline phosphatase 139, protein 5.1. B12 and thyroid function tests are pending. CONCLUSION: Mr. Kris Durand had been presenting with change in mental status with significant underlying medical disorders including chronic kidney disease, pleural effusion with schizophrenic and bipolar disorder and visual hallucination as per the history. Although, this is a possibility of encephalopathy, bilateral cerebral dysfunction, could be related to his metabolic derangement versus infectious source. From neurological examination, the patient does not have any meningeal signs suggestive of meningitis. Because of orientation and moving his both upper and lower extremities as per the command, I doubt he has encephalitis. The patient also showed evidence of myelopathy picture consistent with upper motor neuron dysfunction. It could be from central and the brain as well as the cervical cord pathology. RECOMMENDATION: 1. MRI of the brain. 2. Proper hydration. Keep the temperature normal. 3. Appropriate antibiotic. 4. MRI of the brain. 5. EEG. 6. The patient should be kept fall precaution and correct his anemia. The patient should have followup by commercial fisherman for pleural effusion and licensed mortician for his chronic kidney disease and psychiatrist for his underlying bipolar disorder. The patient's condition had been well discussed with the resident. The patient will be followed closely with you. Jimbo Coello MD
[2017-06-29 03:31] LABS: ABG ALLEN TEST YES; ARTERIAL BLOOD GAS HCO3 19.1 mmol/L (21-28); ARTERIAL BLOOD GAS O2 SAT 94.6 % (95-98); ARTERIAL BLOOD GAS PCO2 30 mm/Hg (35-45); ARTERIAL BLOOD GAS PH 7.36 (7.35-7.45); ARTERIAL BLOOD GAS PO2 63 mm/Hg (80-100); ARTERIAL BLOOD GAS TCO2 17.8 mmol/L (22-28)
[2017-06-29] MEDS: Sodium Chloride 0.45% 1,000 ML IV SCH (04:44)
[2017-06-29] MEDS: Albuterol-Ipratrop 3 mg / 0.5 (3 ml) UD INH SCH ×4 (07:55→20:19)
[2017-06-29 08:08] LABS: MEAN CELL VOLUME 93.2 fl (80.0-94.0); MEAN CORPUSCULAR HGB CONC 33.3 g/dL (33.0-37.0); RBC 2.9 Mil/uL (4.40-5.90); RED CELL DISTRIBUTION WIDTH 17.9 % (11.5-14.5); WHITE BLOOD COUNT 12.5 K/uL (4.8-10.8)
--- NOTE | 2017-06-29 08:18 | CP.PCM.PCO ---
Addendum Addendum: 06/29/17: 0245 CC: pt desaturating to 80s on NC with O2 at 4L Nurse notified the keno writer pt had desaturated. Pt was suctioned by nurse, started on ventimask at 40% oxygen due to O2 sat remaining in low 80s. I came to evaluate the patient he was somnolent, but arousable, his O2 saturation was 93% on the ventimask. His breathing was mildly labored, improved on venti-mask, audible secretions in airway. Lung sounds : +transmitted sounds from upper airway, right lung base +rales, left lung decreased breath sounds in lower lung A/P: 66 year old male with hx of htn, chronic left pleural effusion, nephrotic sdx admitted with hypothermia, found to be acutely hypoxic. His O2 sat improved saturation on ventimask. Patient was started on warming fluids earlier today, and given his nephrotic syndrome, possible etiology is fluid overload/pulmonary edema vs worsening left sided pleural effusion. -stat ABG -stat CXR -consider lasix case d/w Dr. Martins Approx 330 : notified of ABG, continue with ventimask. awaiting XR of chest. breathing stable. 0500 notified of XR was taken: reviewed by me, appears to have increased opacity of bilateral lung bases. Worsening bilateral pleural effusion. IV fluids discontinued, Lasix 20mg IV ordered. 7:45 reeassessed the patient, on Ventimask 50% with O2 sat of 95%, somnolent, more lethargic this AM, with edema of bilateral upper extremities. right IV appears to have infiltrated, left arm bands need to be removed due to edema, nurse Francoise made aware. lung exam essentially unchanged [place] cath placed by night RN, small amount of light yellow urine noted in [place] , follow ins and outs. -lasix 60mg IVP ordered, discussed with senior resident. Tita Magana PGY2
[2017-06-29 08:22] LABS: ALB/GLOB RATIO 0.8 (1.0-2.1); ALBUMIN 2.3 g/dL (3.5-5.0); CALCIUM 7.9 mg/dL (8.4-10.2)
[2017-06-29] MEDS: Linezolid 600 mg in D5W 300 ml 600 MG/300 ML BAG IVPB SCH ×2 (09:08→21:26)
[2017-06-29] MEDS: Insulin Lispro (humaLOG) 100 Units/ml Inj SC SCH ×4 (09:15→21:57)
[2017-06-29] MEDS: Cefepime 1 GM in Sodium Chloride 0.9% 100 ML IVPB SCH (09:24)
[2017-06-29] MEDS: Bacitracin OINT 15GM TOP SCH ×3 (09:25→16:36)
[2017-06-29] MEDS: Enoxaparin 30 mg Syringe SC SCH (09:25)
--- NOTE | 2017-06-29 10:59 | CP.PCM.PN ---
Objective - Vital Signs/Intake and Output Vital Signs (last 24 hours): Temp Pulse Resp BP Pulse Ox 98.6 F 77 20 146/62 95 06/29/17 08:00 06/29/17 09:16 06/29/17 08:00 06/29/17 09:28 06/29/17 08:00 Intake and Output: 06/29/17 06/29/17 06:59 18:59 Output Total 200 Balance -200 - Medications Medications: Current Medications Albumin Human (Albumin Human 25% (12.5 Gm/50 Ml)) 12.5 gm IV Q6H [facility] Stop: 06/30/17 05:01 Albuterol/Ipratropium (Duoneb 3 Mg/0.5 Mg (3 Ml) Ud) 3 ml INH RQID [facility] Last Admin: 06/29/17 07:55 Dose: 3 ml Amlodipine Besylate (Norvasc) 10 mg PO DAILY [facility] Last Admin: 06/29/17 09:15 Dose: Not Given Bacitracin (Bacitracin Oint) 1 applic TOP TID [facility] Last Admin: 06/29/17 09:25 Dose: 1 applic Calcium Acetate (Phoslo) 2,001 mg PO WM [facility] Last Admin: 06/29/17 09:15 Dose: Not Given Dextrose (Dextrose 50% Inj) 0 ml IV STAT PRN; Protocol PRN Reason: Hypoglycemia Protocol Dextrose (Glutose 15) 0 gm PO ONCE PRN; Protocol PRN Reason: Hypoglycemia Protocol Enoxaparin Sodium (Lovenox) 30 mg SC DAILY [facility] PRN Reason: Protocol Last Admin: 06/29/17 09:25 Dose: 30 mg Epoetin Roel (Procrit) 10,000 unit SC MWF [facility] Last Admin: 06/27/17 12:15 Dose: 10,000 unit Ergocalciferol (Drisdol 50,000 Intl Units Cap) 1 cap PO Q7D [facility] Furosemide (Lasix) 80 mg IV Q8 [facility] Glucagon (Glucagen Diagnostic Kit) 0 mg IM STAT PRN; Protocol PRN Reason: Hypoglycemia Protocol Haloperidol Lactate (Haldol) 0.5 mg IM Q6 PRN PRN Reason: Agitation Last Admin: 06/25/17 14:35 Dose: 0.5 mg Hydralazine HCl (Apresoline) 50 mg PO Q8 [facility] Last Admin: 06/29/17 09:16 Dose: Not Given Linezolid (Zyvox 600mg/300ml D5w) 600 mg in 300 mls @ 300 mls/hr IVPB Q12 [facility] PRN Reason: Protocol Last Admin: 06/29/17 09:08 Dose: 300 mls/hr Cefepime HCl 1 gm/ Sodium (Chloride) 100 mls @ 100 mls/hr IVPB DAILY [facility] PRN Reason: Protocol Last Admin: 06/29/17 09:24 Dose: 100 mls/hr Insulin Human Lispro (Humalog) 0 units SC ACHS [facility] PRN Reason: Protocol Last Admin: 06/29/17 09:15 Dose: Not Given Levalbuterol HCl (Xopenex) 0.63 mg INH RQ8 PRN PRN Reason: Shortness of Breath Pantoprazole Sodium (Protonix Inj) 40 mg IVP DAILY [facility] Last Admin: 06/29/17 09:17 Dose: 40 mg Thiamine HCl (Vitamin B1 Tab) 100 mg PO BID [facility] Last Admin: 06/29/17 09:16 Dose: Not Given - Labs Labs: 06/29/17 06:30 06/29/17 06:30 PT 14.7 Seconds (9.8-13.1) H 06/24/17 07:45 INR 1.3 (0.9-1.2) H 06/24/17 07:45 APTT 45.1 Seconds (25.6-37.1) H 06/22/17 20:33
[2017-06-29] MEDS: Albumin Human 25% (12.5 gm/50 ml) IV SCH ×3 (11:37→23:00)
--- NOTE | 2017-06-29 11:40 | CP.PCM.PN ---
Subjective - Date & Time of Evaluation Date of Evaluation: 06/29/17 Time of Evaluation: 11:40 - Subjective Subjective: ON BIPAP O2 SAT--95% LUNGS-DULLNESS AT BASES HEART-S1S2 CXR-WORSENING L PLEURAL EFFUSION MAY NEED REPEAT THORACENTESES CONTINUE BIPAP AND O2 SUPPLEMENTATION Objective - Vital Signs/Intake and Output Vital Signs (last 24 hours): Temp Pulse Resp BP Pulse Ox 98.6 F 77 20 146/62 95 06/29/17 08:00 06/29/17 09:16 06/29/17 08:00 06/29/17 09:28 06/29/17 08:00 Intake and Output: 06/29/17 06/29/17 06:59 18:59 Output Total 200 Balance -200 - Medications Medications: Current Medications Albumin Human (Albumin Human 25% (12.5 Gm/50 Ml)) 12.5 gm IV Q6H [facility] Stop: 06/30/17 05:01 Last Admin: 06/29/17 11:37 Dose: 12.5 gm Albuterol/Ipratropium (Duoneb 3 Mg/0.5 Mg (3 Ml) Ud) 3 ml INH RQID [facility] Last Admin: 06/29/17 11:34 Dose: 3 ml Amlodipine Besylate (Norvasc) 10 mg PO DAILY [facility] Last Admin: 06/29/17 09:15 Dose: Not Given Bacitracin (Bacitracin Oint) 1 applic TOP TID [facility] Last Admin: 06/29/17 09:25 Dose: 1 applic Calcium Acetate (Phoslo) 2,001 mg PO WM [facility] Last Admin: 06/29/17 09:15 Dose: Not Given Dextrose (Dextrose 50% Inj) 0 ml IV STAT PRN; Protocol PRN Reason: Hypoglycemia Protocol Dextrose (Glutose 15) 0 gm PO ONCE PRN; Protocol PRN Reason: Hypoglycemia Protocol Enoxaparin Sodium (Lovenox) 30 mg SC DAILY [facility] PRN Reason: Protocol Last Admin: 06/29/17 09:25 Dose: 30 mg Epoetin Roel (Procrit) 10,000 unit SC MWF [facility] Last Admin: 06/27/17 12:15 Dose: 10,000 unit Ergocalciferol (Drisdol 50,000 Intl Units Cap) 1 cap PO Q7D [facility] Furosemide (Lasix) 80 mg IV Q8 [facility] Glucagon (Glucagen Diagnostic Kit) 0 mg IM STAT PRN; Protocol PRN Reason: Hypoglycemia Protocol Haloperidol Lactate (Haldol) 0.5 mg IM Q6 PRN PRN Reason: Agitation Last Admin: 06/25/17 14:35 Dose: 0.5 mg Hydralazine HCl (Apresoline) 50 mg PO Q8 [facility] Last Admin: 06/29/17 09:16 Dose: Not Given Linezolid (Zyvox 600mg/300ml D5w) 600 mg in 300 mls @ 300 mls/hr IVPB Q12 [facility] PRN Reason: Protocol Last Admin: 06/29/17 09:08 Dose: 300 mls/hr Cefepime HCl 1 gm/ Sodium (Chloride) 100 mls @ 100 mls/hr IVPB DAILY [facility] PRN Reason: Protocol Last Admin: 06/29/17 09:24 Dose: 100 mls/hr Insulin Human Lispro (Humalog) 0 units SC ACHS [facility] PRN Reason: Protocol Last Admin: 06/29/17 09:15 Dose: Not Given Levalbuterol HCl (Xopenex) 0.63 mg INH RQ8 PRN PRN Reason: Shortness of Breath Pantoprazole Sodium (Protonix Inj) 40 mg IVP DAILY [facility] Last Admin: 06/29/17 09:17 Dose: 40 mg Thiamine HCl (Vitamin B1 Tab) 100 mg PO BID [facility] Last Admin: 06/29/17 09:16 Dose: Not Given - Labs Labs: 06/29/17 06:30 06/29/17 06:30 PT 14.7 Seconds (9.8-13.1) H 06/24/17 07:45 INR 1.3 (0.9-1.2) H 06/24/17 07:45 APTT 45.1 Seconds (25.6-37.1) H 06/22/17 20:33
--- NOTE | 2017-06-29 11:57 | CP.PCM.PN ---
Subjective - Date & Time of Evaluation Date of Evaluation: 06/29/17 Time of Evaluation: 11:55 - Subjective Subjective: 66 yo M w/ pmh of htn, dm, CKD IIIB w/ 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, monoclonal gammopathy, recurrent L pleural effusion, admitted with hypothermia, CHINTAN; Patient with O2 desaturation this morning; started on BIPAP to decrease work of breathing; more lethargic, unable to consume PO intake including meds; Objective - Vital Signs/Intake and Output Vital Signs (last 24 hours): Temp Pulse Resp BP Pulse Ox 98.6 F 72 20 146/62 95 06/29/17 08:00 06/29/17 11:00 06/29/17 08:00 06/29/17 09:28 06/29/17 08:00 Intake and Output: 06/29/17 06/29/17 06:59 18:59 Output Total 200 Balance -200 - Medications Medications: Current Medications Albumin Human (Albumin Human 25% (12.5 Gm/50 Ml)) 12.5 gm IV Q6H [facility] Stop: 06/30/17 05:01 Last Admin: 06/29/17 11:37 Dose: 12.5 gm Albuterol/Ipratropium (Duoneb 3 Mg/0.5 Mg (3 Ml) Ud) 3 ml INH RQID [facility] Last Admin: 06/29/17 11:34 Dose: 3 ml Amlodipine Besylate (Norvasc) 10 mg PO DAILY [facility] Last Admin: 06/29/17 09:15 Dose: Not Given Bacitracin (Bacitracin Oint) 1 applic TOP TID [facility] Last Admin: 06/29/17 09:25 Dose: 1 applic Calcium Acetate (Phoslo) 2,001 mg PO WM [facility] Last Admin: 06/29/17 09:15 Dose: Not Given Dextrose (Dextrose 50% Inj) 0 ml IV STAT PRN; Protocol PRN Reason: Hypoglycemia Protocol Dextrose (Glutose 15) 0 gm PO ONCE PRN; Protocol PRN Reason: Hypoglycemia Protocol Enoxaparin Sodium (Lovenox) 30 mg SC DAILY [facility] PRN Reason: Protocol Last Admin: 06/29/17 09:25 Dose: 30 mg Epoetin Roel (Procrit) 10,000 unit SC MWF [facility] Last Admin: 06/27/17 12:15 Dose: 10,000 unit Ergocalciferol (Drisdol 50,000 Intl Units Cap) 1 cap PO Q7D [facility] Furosemide (Lasix) 80 mg IV Q8 [facility] Glucagon (Glucagen Diagnostic Kit) 0 mg IM STAT PRN; Protocol PRN Reason: Hypoglycemia Protocol Haloperidol Lactate (Haldol) 0.5 mg IM Q6 PRN PRN Reason: Agitation Last Admin: 06/25/17 14:35 Dose: 0.5 mg Hydralazine HCl (Apresoline) 50 mg PO Q8 [facility] Last Admin: 06/29/17 09:16 Dose: Not Given Linezolid (Zyvox 600mg/300ml D5w) 600 mg in 300 mls @ 300 mls/hr IVPB Q12 [facility] PRN Reason: Protocol Last Admin: 06/29/17 09:08 Dose: 300 mls/hr Cefepime HCl 1 gm/ Sodium (Chloride) 100 mls @ 100 mls/hr IVPB DAILY [facility] PRN Reason: Protocol Last Admin: 06/29/17 09:24 Dose: 100 mls/hr Insulin Human Lispro (Humalog) 0 units SC ACHS [facility] PRN Reason: Protocol Last Admin: 06/29/17 09:15 Dose: Not Given Levalbuterol HCl (Xopenex) 0.63 mg INH RQ8 PRN PRN Reason: Shortness of Breath Pantoprazole Sodium (Protonix Inj) 40 mg IVP DAILY [facility] Last Admin: 06/29/17 09:17 Dose: 40 mg Thiamine HCl (Vitamin B1 Tab) 100 mg PO BID [facility] Last Admin: 06/29/17 09:16 Dose: Not Given - Labs Labs: 06/29/17 06:30 06/29/17 06:30 PT 14.7 Seconds (9.8-13.1) H 06/24/17 07:45 INR 1.3 (0.9-1.2) H 06/24/17 07:45 APTT 45.1 Seconds (25.6-37.1) H 06/22/17 20:33 - Constitutional Appears: No Acute Distress, Chronically Ill - Eye Exam Eye Exam: absent: Scleral icterus - ENT Exam ENT Exam: Mucous Membranes Moist - Respiratory Exam Additional comments: Markedly decreased breath sounds on L; tachypneic on BIPAP; - Cardiovascular Exam Cardiovascular Exam: RRR, +S1, +S2 - GI/Abdominal Exam GI & Abdominal Exam: Soft. absent: Distended, Tenderness - Exam Exam: Scrotal Swelling - Extremities Exam Additional comments: markedly edematous b/l UE and LE; - Neurological Exam Neurological Exam: Alert, Awake Additional comments: lethargic but able to respond verbally; - Psychiatric Exam Psychiatric exam: absent: Agitated - Skin Skin Exam: Warm. absent: Cyanosis Assessment and Plan (1) Acute renal failure Assessment & Plan: CHINTAN on CKD; ATN in the setting of moderate hypothermia; serum creat had reached plateau and then with mild improvement; however, renal recovery appears halted; never became polyuric (currently non-oliguric); may have had yet an additional renal insult with mild hypothermia seen yesterday; relatively stable electrolyte status and doesn't appear volume overloaded (despite anasarca); -Ideally should continue IVF but stopped due to concern for worsening resp status; -Rare possibility for superimposed renal vein thrombosis in the setting of nephrotic syndrome, check renal vein duplex -No indication for HD currently but this may change; nephrotic syndrome is contributing to patient's overall deterioration and may need to initiate HD earlier than is the norm; Status: Acute (2) Pleural effusion Assessment & Plan: Recurrent L pleural effusion; very rapid accumulation of fluid after thoracentesis; appears transudative but should consider pleural biopsy, especially since effusion is almost completely unilateral; while we can try diuretics, will likely not be very effective as effusion is not intravascular; -needs repeat thoracentesis -will try IV albumin 25% q6h along with IV lasix 80 mg q8h Status: Chronic (3) Hypothermia Assessment & Plan: Temperature improved but etiology still unclear; awaiting workup; Status: Acute (4) Altered mental status Status: Acute (5) SIRS (systemic inflammatory response syndrome) Assessment & Plan: On cefepime (dosed for CrCl < 20) and linezolid; f/u blood cultures; Status: Acute (6) Nephrotic syndrome Assessment & Plan: See above; prognosis is overall extremely guarded; Status: Chronic (7) Anemia Assessment & Plan: Hgb stable, continue EPO three times per week; Status: Chronic (8) Chronic kidney disease, stage 3 (moderate) Status: Chronic (9) Hypertensive CKD (chronic kidney disease) Assessment & Plan: BP overall seems improved but patient may be intravascularly volume depleted; cannot take PO meds; avoid IV anti-htn meds unless SBP consistently > 170'sl Status: Acute
--- NOTE | 2017-06-29 12:16 | CP.PCM.PN ---
Subjective - Date & Time of Evaluation Date of Evaluation: 06/29/17 Time of Evaluation: 08:30 - Subjective Subjective: 66 yo M w/ pmh of htn, dm, CKD IIIB w/ 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, monoclonal gammopathy, recurrent L pleural effusion, admitted with hypothermia, CHINTAN Patient with O2 desaturation this morning; placed on ventimask initially and given 80 mg of lasix total STAT. O2 sat improved and remained stable but tachypnea continued. Started on BIPAP to decrease work of breathing after discussing with nephro and ICU stock saw operator; more lethargic today but arousable to voice and touch. Remains stable after Bipap. Objective - Vital Signs/Intake and Output Vital Signs (last 24 hours): Temp Pulse Resp BP Pulse Ox 98.6 F 72 20 146/62 95 06/29/17 09:00 06/29/17 11:00 06/29/17 09:00 06/29/17 09:28 06/29/17 09:00 Intake and Output: 06/29/17 06/29/17 06:59 18:59 Output Total 200 Balance -200 - Medications Medications: Current Medications Albumin Human (Albumin Human 25% (12.5 Gm/50 Ml)) 12.5 gm IV Q6H [facility] Stop: 06/30/17 05:01 Last Admin: 06/29/17 11:37 Dose: 12.5 gm Albuterol/Ipratropium (Duoneb 3 Mg/0.5 Mg (3 Ml) Ud) 3 ml INH RQID [facility] Last Admin: 06/29/17 11:34 Dose: 3 ml Amlodipine Besylate (Norvasc) 10 mg PO DAILY [facility] Last Admin: 06/29/17 09:15 Dose: Not Given Bacitracin (Bacitracin Oint) 1 applic TOP TID [facility] Last Admin: 06/29/17 09:25 Dose: 1 applic Calcium Acetate (Phoslo) 2,001 mg PO WM [facility] Last Admin: 06/29/17 09:15 Dose: Not Given Dextrose (Dextrose 50% Inj) 0 ml IV STAT PRN; Protocol PRN Reason: Hypoglycemia Protocol Dextrose (Glutose 15) 0 gm PO ONCE PRN; Protocol PRN Reason: Hypoglycemia Protocol Enoxaparin Sodium (Lovenox) 30 mg SC DAILY [facility] PRN Reason: Protocol Last Admin: 06/29/17 09:25 Dose: 30 mg Epoetin Roel (Procrit) 10,000 unit SC MWF [facility] Last Admin: 06/27/17 12:15 Dose: 10,000 unit Ergocalciferol (Drisdol 50,000 Intl Units Cap) 1 cap PO Q7D [facility] Furosemide (Lasix) 80 mg IV Q8 [facility] Glucagon (Glucagen Diagnostic Kit) 0 mg IM STAT PRN; Protocol PRN Reason: Hypoglycemia Protocol Haloperidol Lactate (Haldol) 0.5 mg IM Q6 PRN PRN Reason: Agitation Last Admin: 06/25/17 14:35 Dose: 0.5 mg Hydralazine HCl (Apresoline) 50 mg PO Q8 [facility] Last Admin: 06/29/17 09:16 Dose: Not Given Linezolid (Zyvox 600mg/300ml D5w) 600 mg in 300 mls @ 300 mls/hr IVPB Q12 [facility] PRN Reason: Protocol Last Admin: 06/29/17 09:08 Dose: 300 mls/hr Cefepime HCl 1 gm/ Sodium (Chloride) 100 mls @ 100 mls/hr IVPB DAILY [facility] PRN Reason: Protocol Last Admin: 06/29/17 09:24 Dose: 100 mls/hr Insulin Human Lispro (Humalog) 0 units SC ACHS [facility] PRN Reason: Protocol Last Admin: 06/29/17 09:15 Dose: Not Given Levalbuterol HCl (Xopenex) 0.63 mg INH RQ8 PRN PRN Reason: Shortness of Breath Pantoprazole Sodium (Protonix Inj) 40 mg IVP DAILY [facility] Last Admin: 06/29/17 09:17 Dose: 40 mg Thiamine HCl (Vitamin B1 Tab) 100 mg PO BID [facility] Last Admin: 06/29/17 09:16 Dose: Not Given - Labs Labs: 06/29/17 06:30 06/29/17 06:30 PT 14.7 Seconds (9.8-13.1) H 06/24/17 07:45 INR 1.3 (0.9-1.2) H 06/24/17 07:45 APTT 45.1 Seconds (25.6-37.1) H 06/22/17 20:33 - Constitutional Appears: Confused, Chronically Ill (intercostal retractions on ventimask), Other - Head Exam Head Exam: ATRAUMATIC - Eye Exam Eye Exam: EOMI Pupil Exam: PERRL - ENT Exam ENT Exam: Mucous Membranes Moist - Respiratory Exam Respiratory Exam: Accessory Muscle Use, Decreased Breath Sounds, Rales, Respiratory Distress - Cardiovascular Exam Cardiovascular Exam: +S1, +S2 - GI/Abdominal Exam GI & Abdominal Exam: Soft. absent: Tenderness - Extremities Exam Additional comments: UE: BL swelling 2/2 anasarca LE : 3+ pitting edema on left, 1+ on right LE - Neurological Exam Neurological Exam: Altered, Oriented x3 Assessment and Plan - Assessment and Plan (Free Text) Plan: 66 yo M w/ pmh of htn, dm, CKD IIIB w/ 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, monoclonal gammopathy, recurrent L pleural effusion, admitted with hypothermia, CHINTAN Desaturation -Acute -Patient with O2 desaturation this morning; placed on ventimask initially and given 80 mg of lasix total STAT. -O2 sat improved and remained stable but tachypnea and intercostal retractions continued. -Started on BIPAP to decrease work of breathing after discussing with nephro and ICU stock saw operator; lethargic but arousable to voice and touch. -Remains stable after Bipap 10/5 and high dose lasix 80 mg Q8 hrs -cont. O2 monitoring -neurochecks -1:1 continued Recurrent Left Pleural effusion - S/P left thoracocentesis: Removed 1.2 L of straw colored fluid. F/u with cultures and cytology - has reaccumulated 06/29/17 2/2 warming fluids - Repeat X Ray shows increase in both left and right sided effusion - c/w Bipap 10/5 and increased lasix to 80mg Q8 hrs - Exudative pleural fluid: Total serum Protein:5.5, Plerual fluid protein: 2, serum LDH: 689, Pleural fluid LDH: 323: Positive lights criteria New onset of Hypothermia( resolved) - Rectal temperature of 92 degrees F initially, now remains stable at 98 deg F - Warming fluids at 80 ml/hr x 1.5 L - Bear hugger - Neuro consult appreciated - Repeat EKG WNL - F/U with Folate, Free T4, Prolactin, Vit B12, Cortisol, Ionized Calcium, VBG, lactic acid, MRI, Blood culture, Urine Culture. Altered mental status (waxing and waning) - Possibly secondary to the Metabolic encephalopathy vs UTI - Initial Urine showed gram positive coagulase negative - Repeat Urine Culture is negative: No Growth - C/W Neuro recommendations - C/W Maxapine and Linozolid UTI ( Resolved) - Initial Urine Culture: > 100,000 gram positive coci coagulase negative. Similar to previous admission - Repeat Urine Culture is negative: No Growth. - C/W Maxapine and Linozolid CKD stage 4 w/ new onset of ATN - Worsening of CKD from stage 3 to stage 4 secondary to CHINTAN - Kidney function has shown slight improvement. - Prelim renal biopsy results from previous results show: Nephrotic syndrome secondary to Diabetic nephropathy: Advised to continue KEVIN inhibition and DM control. - F/U with morning CMP Indolent Multiple myeloma - Has monoclonal gammopathy but wasn't at level of MM per previous bone marrow; - Consider consulting heme onc, since patients new onset of hypothermia Sepsis ( resolved) - Afebrile - SIRS(hypothermia,tachpnea) plus UTI, on admission - Initial chest Chest X ray shows pulmonary vascular congestion with small right and moderate left pleural effusions. Left basilar infiltrate not excluded. - Repeat X Ray shows decrease in size of residual small left pleural effusion post thoracocentesis. Stable small right pleural effusion. - Blood culture x 2 negative - Urine culture showed :Urine showed gram positive coagulase negative >100,000 - C/W ID recommendations - C/W Maxapine and Linozolid Acute diastolic CHF secondary to pulmonary edema and fluid overload -ProBNP 3500 -Echo 05/31/17 normal EF 60-65% - D/C lasix as per nephro DM 2 -home meds hold -SSI HTN - Hydralazine 50 Q8 - Amlodipine 10 mg daily Anemia of chronic disease ( improving) - HB: 8.8, HCT: 27.7 - Bone marrow biopsy showed findings consistent with multiple myeloma - C/W procrit DVT prophylaxis - Lovenox 30 SC
--- NOTE | 2017-06-29 12:30 | CP.PCM.PN ---
Subjective - Date & Time of Evaluation Date of Evaluation: 06/29/17 Time of Evaluation: 09:00 - Subjective Subjective: euthermic today but now on bipap all recent cultures neg repeat thoracentesis may be needed Objective - Vital Signs/Intake and Output Vital Signs (last 24 hours): Temp Pulse Resp BP Pulse Ox 98.6 F 72 20 146/62 95 06/29/17 09:00 06/29/17 11:00 06/29/17 09:00 06/29/17 09:28 06/29/17 09:00 Intake and Output: 06/29/17 06/29/17 06:59 18:59 Output Total 200 Balance -200 - Medications Medications: Current Medications Albumin Human (Albumin Human 25% (12.5 Gm/50 Ml)) 12.5 gm IV Q6H [facility] Stop: 06/30/17 05:01 Last Admin: 06/29/17 11:37 Dose: 12.5 gm Albuterol/Ipratropium (Duoneb 3 Mg/0.5 Mg (3 Ml) Ud) 3 ml INH RQID [facility] Last Admin: 06/29/17 11:34 Dose: 3 ml Amlodipine Besylate (Norvasc) 10 mg PO DAILY [facility] Last Admin: 06/29/17 09:15 Dose: Not Given Bacitracin (Bacitracin Oint) 1 applic TOP TID [facility] Last Admin: 06/29/17 09:25 Dose: 1 applic Calcium Acetate (Phoslo) 2,001 mg PO WM [facility] Last Admin: 06/29/17 09:15 Dose: Not Given Dextrose (Dextrose 50% Inj) 0 ml IV STAT PRN; Protocol PRN Reason: Hypoglycemia Protocol Dextrose (Glutose 15) 0 gm PO ONCE PRN; Protocol PRN Reason: Hypoglycemia Protocol Enoxaparin Sodium (Lovenox) 30 mg SC DAILY [facility] PRN Reason: Protocol Last Admin: 06/29/17 09:25 Dose: 30 mg Epoetin Roel (Procrit) 10,000 unit SC MWF [facility] Last Admin: 06/27/17 12:15 Dose: 10,000 unit Ergocalciferol (Drisdol 50,000 Intl Units Cap) 1 cap PO Q7D [facility] Furosemide (Lasix) 80 mg IV Q8 [facility] Glucagon (Glucagen Diagnostic Kit) 0 mg IM STAT PRN; Protocol PRN Reason: Hypoglycemia Protocol Haloperidol Lactate (Haldol) 0.5 mg IM Q6 PRN PRN Reason: Agitation Last Admin: 06/25/17 14:35 Dose: 0.5 mg Hydralazine HCl (Apresoline) 50 mg PO Q8 [facility] Last Admin: 06/29/17 09:16 Dose: Not Given Linezolid (Zyvox 600mg/300ml D5w) 600 mg in 300 mls @ 300 mls/hr IVPB Q12 [facility] PRN Reason: Protocol Last Admin: 06/29/17 09:08 Dose: 300 mls/hr Cefepime HCl 1 gm/ Sodium (Chloride) 100 mls @ 100 mls/hr IVPB DAILY [facility] PRN Reason: Protocol Last Admin: 06/29/17 09:24 Dose: 100 mls/hr Insulin Human Lispro (Humalog) 0 units SC ACHS [facility] PRN Reason: Protocol Last Admin: 06/29/17 09:15 Dose: Not Given Levalbuterol HCl (Xopenex) 0.63 mg INH RQ8 PRN PRN Reason: Shortness of Breath Pantoprazole Sodium (Protonix Inj) 40 mg IVP DAILY [facility] Last Admin: 06/29/17 09:17 Dose: 40 mg Thiamine HCl (Vitamin B1 Tab) 100 mg PO BID [facility] Last Admin: 06/29/17 09:16 Dose: Not Given - Labs Labs: 06/29/17 06:30 06/29/17 06:30 PT 14.7 Seconds (9.8-13.1) H 06/24/17 07:45 INR 1.3 (0.9-1.2) H 06/24/17 07:45 APTT 45.1 Seconds (25.6-37.1) H 06/22/17 20:33 - Constitutional Appears: Non-toxic, Older Than Stated Age, Cachectic, Chronically Ill - Head Exam Head Exam: NORMOCEPHALIC - Eye Exam Eye Exam: absent: Scleral icterus - ENT Exam ENT Exam: Mucous Membranes Dry - Respiratory Exam Respiratory Exam: Decreased Breath Sounds, Prolonged Expiratory Phase, Rales, Rhonchi - Cardiovascular Exam Cardiovascular Exam: REGULAR RHYTHM, +S1, +S2 - GI/Abdominal Exam GI & Abdominal Exam: Distended - Rectal Exam Rectal Exam: Deferred - Exam Exam: NORMAL INSPECTION - Back Exam Back Exam: absent: CVA tenderness (L), CVA tenderness (R) - Neurological Exam Neurological Exam: Altered - Psychiatric Exam Psychiatric exam: Depressed - Skin Skin Exam: Dry Assessment and Plan (1) Acute renal failure Status: Acute (2) Altered mental status Status: Acute (3) CHF (congestive heart failure) Status: Acute (4) DM2 (diabetes mellitus, type 2) Status: Acute (5) HCAP (healthcare-associated pneumonia) Status: Acute (6) Pleural effusion Status: Acute (7) SIRS (systemic inflammatory response syndrome) Status: Acute (8) Sepsis Status: Acute (9) Acute kidney injury superimposed on chronic kidney disease Status: Acute (10) Alcohol abuse Status: Acute (11) Anasarca Status: Acute (12) Anemia of renal disease Status: Acute (13) Bilateral lower extremity edema Status: Acute - Assessment and Plan (Free Text) Assessment: 66 yo M w/ pmh of htn, dm, CKD IIIB w/ 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, monoclonal gammopathy, recurrent L pleural effusion, admitted with hypothermia, CHINTAN; Patient with O2 desaturation this morning; started on BIPAP to decrease work of breathing; more lethargic, unable to consume PO intake including meds; cont iv antibiotics x 7 days then de-escalate
--- NOTE | 2017-06-29 15:41 | RAD ---
HISTORY: pt desaturated on room air COMPARISON: 06/27/2017 FINDINGS: LUNGS: No definite infiltrate. Left-sided volume loss with mild leftward shift of heart. PLEURA: Moderate left and small right pleural effusion. Increased size of left pleural effusion compared to prior examination. No pneumothorax. CARDIOVASCULAR: Normal. OSSEOUS STRUCTURES: No significant abnormalities. VISUALIZED UPPER ABDOMEN: Normal. OTHER FINDINGS: None. IMPRESSION: Bilateral pleural effusion, left greater than right. Left effusion increased from prior exam. Left-sided volume loss.
[2017-06-29] MEDS ORDERED: Sodium Chloride 3% for Inhalation 4 ML VIAL.NEB IH PRN (17:54)
[2017-06-29 18:01] LABS: ABG ALLEN TEST YES; ARTERIAL BLOOD GAS HCO3 14.8 mmol/L (21-28); ARTERIAL BLOOD GAS O2 SAT 98.3 % (95-98); ARTERIAL BLOOD GAS PCO2 43 mm/Hg (35-45); ARTERIAL BLOOD GAS PH 7.16 (7.35-7.45); ARTERIAL BLOOD GAS PO2 116 mm/Hg (80-100); ARTERIAL BLOOD GAS TCO2 16.6 mmol/L (22-28)
--- NOTE | 2017-06-29 18:01 | CP.PCM.CON ---
History of Present Illness - History of Present Illness History of Present Illness: I responded to code blue on patient in 4 N, was the first physician to arrive, pt was unresponsive and had no pulse and was not breathing. CPR started and I intubated the patient. He was in asystole but pule returned in about 4 minutes, he was given two dose of epi. As per nurse who was in the room , patient was awake but suddenly became unresponsive and cyanotic. After CPR he had BP 180/90 and SR 100, due to epi. Patient been admitted multiple time with respiratory distress and recurrent pleural effusion. He has nephrotic syndrome and has anasarca with low albumin. He has bone marrow biopsy done showed monoclonal gammopathy but no renal biopsy done yet. He has CKD stage 4. Yesterday 06/18, he was hypothermic, has been followed by ID and has been on Cefipine and zyvox. Has been hypoxic at times due t large left pleural effusion but oxygen saturation has been well maintainedby supplement oxygen and BiPAP , when needed. Review of Systems - Review of Systems Systems not reviewed;Unavailable: Unstable Vital Signs, Respiratory Distress, Intubated Past Patient History - Infectious Disease Hx of Infectious Diseases: None - Tetanus Immunizations Tetanus Immunization: Unknown - Past Medical History & Family History Past Medical History?: Yes - Past Social History Alcohol: None Drugs: Denies - CARDIAC Hx Cardiac Disorders: Yes Hx Congestive Heart Failure: Yes Hx Hypercholesterolemia: No Hx Hypertension: Yes - PULMONARY Hx Chronic Obstructive Pulmonary Disease (COPD): No - NEUROLOGICAL HX Cerebrovascular Accident: No - HEENT Hx HEENT Problems: No - RENAL Hx Renal Failure: Yes - ENDOCRINE/METABOLIC Hx Diabetes Mellitus Type 1: No Hx Diabetes Mellitus Type 2: Yes Hx Hypothyroidism: No - HEMATOLOGICAL/ONCOLOGICAL Hx Anemia: Yes Hx Human Immunodeficiency Virus (HIV): No Hx Sickle Cell Disease: No - INTEGUMENTARY Hx Dermatological Problems: No - MUSCULOSKELETAL/RHEUMATOLOGICAL Hx Arthritis: No Hx Rheumatoid Arthritis: No - GASTROINTESTINAL Hx Crohn's Disease: No Hx Diverticulitis: No Hx Gall Bladder Disease: No Hx Gastritis: No Hx Pancreatitis: No - GENITOURINARY/GYNECOLOGICAL Hx Genitourinary Disorders: No - PSYCHIATRIC Hx Anxiety: Yes Hx Bipolar Disorder: Yes Hx Depression: Yes Hx Paranoia: No Hx Post Traumatic Stress Disorder: No Hx Schizophrenia: No - SURGICAL HISTORY Hx Surgeries: No - ANESTHESIA Hx Anesthesia: Yes Hx Anesthesia Reactions: No Hx Malignant Hyperthermia: No Meds Allergies/Adverse Reactions: Allergies Allergy/AdvReac Type Severity Reaction Status Date / Time No Known Allergies Allergy Verified 05/21/17 16:02 - Medications Medications: Current Medications Albumin Human (Albumin Human 25% (12.5 Gm/50 Ml)) 12.5 gm IV Q6H [facility] Stop: 06/30/17 05:01 Last Admin: 06/29/17 16:35 Dose: 12.5 gm Albuterol/Ipratropium (Duoneb 3 Mg/0.5 Mg (3 Ml) Ud) 3 ml INH RQID [facility] Last Admin: 06/29/17 15:53 Dose: 3 ml Amlodipine Besylate (Norvasc) 10 mg PO DAILY [facility] Last Admin: 06/29/17 09:15 Dose: Not Given Bacitracin (Bacitracin Oint) 1 applic TOP TID [facility] Last Admin: 06/29/17 16:36 Dose: 1 applic Calcium Acetate (Phoslo) 2,001 mg PO WM [facility] Last Admin: 06/29/17 17:50 Dose: Not Given Dextrose (Dextrose 50% Inj) 0 ml IV STAT PRN; Protocol PRN Reason: Hypoglycemia Protocol Dextrose (Glutose 15) 0 gm PO ONCE PRN; Protocol PRN Reason: Hypoglycemia Protocol Enoxaparin Sodium (Lovenox) 30 mg SC DAILY [facility] PRN Reason: Protocol Last Admin: 06/29/17 09:25 Dose: 30 mg Epoetin Roel (Procrit) 10,000 unit SC MWF [facility] Last Admin: 06/27/17 12:15 Dose: 10,000 unit Ergocalciferol (Drisdol 50,000 Intl Units Cap) 1 cap PO Q7D [facility] Furosemide (Lasix) 80 mg IV Q8 [facility] Last Admin: 06/29/17 16:56 Dose: 80 mg Glucagon (Glucagen Diagnostic Kit) 0 mg IM STAT PRN; Protocol PRN Reason: Hypoglycemia Protocol Haloperidol Lactate (Haldol) 0.5 mg IM Q6 PRN PRN Reason: Agitation Last Admin: 06/25/17 14:35 Dose: 0.5 mg Hydralazine HCl (Apresoline) 50 mg PO Q8 [facility] Last Admin: 06/29/17 16:36 Dose: Not Given Linezolid (Zyvox 600mg/300ml D5w) 600 mg in 300 mls @ 300 mls/hr IVPB Q12 [facility] PRN Reason: Protocol Last Admin: 06/29/17 09:08 Dose: 300 mls/hr Cefepime HCl 1 gm/ Sodium (Chloride) 100 mls @ 100 mls/hr IVPB DAILY [facility] PRN Reason: Protocol Last Admin: 06/29/17 09:24 Dose: 100 mls/hr Insulin Human Lispro (Humalog) 0 units SC ACHS [facility] PRN Reason: Protocol Last Admin: 06/29/17 16:57 Dose: Not Given Levalbuterol HCl (Xopenex) 0.63 mg INH RQ8 PRN PRN Reason: Shortness of Breath Pantoprazole Sodium (Protonix Inj) 40 mg IVP DAILY [facility] Last Admin: 06/29/17 09:17 Dose: 40 mg Thiamine HCl (Vitamin B1 Tab) 100 mg PO BID [facility] Last Admin: 06/29/17 17:51 Dose: Not Given Physical Exam - Constitutional Appears: Unkempt, Older Than Stated Age - Head Exam Head Exam: ATRAUMATIC - Eye Exam Pupil Exam: PERRL - Neck Exam Neck exam: Positive for: Full Rom - Respiratory Exam Respiratory Exam: Decreased Breath Sounds - Cardiovascular Exam Cardiovascular Exam: Tachycardia - GI/Abdominal Exam GI & Abdominal Exam: Soft - Extremities Exam Extremities exam: Positive for: pedal edema Results - Vital Signs Recent Vital Signs: Last Vital Signs Temp 98.5 F 06/29/17 15:46 Pulse 77 06/29/17 16:36 Resp 18 06/29/17 15:46 BP 149/68 06/29/17 16:56 Pulse Ox 100 06/29/17 15:46 - Labs Result Diagrams: 06/29/17 18:00 06/29/17 06:30 Labs: Laboratory Results - last 24 hr 06/28/17 06/29/17 06/29/17 21:52 03:28 06:30 WBC 12.5 H RBC 2.90 L Hgb 9.0 L Hct 27.0 L MCV 93.2 MCH 31.0 MCHC 33.3 RDW 17.9 H Plt Count 157 pCO2 30 L pO2 63 L HCO3 19.1 L ABG pH 7.36 ABG Total CO2 17.8 L ABG O2 Saturation 94.6 L ABG Base Excess -7.3 L Andry Test Yes ABG Potassium 4.2 A-a O2 Difference 185.0 Sodium 140.0 Chloride 118.0 H Glucose 119 H Lactate 0.6 L Vent Mode 40% vm FiO2 40.0 Potassium Carbon Dioxide Anion Gap BUN Creatinine Est GFR ( Amer) Est GFR (Non-Af Amer) POC Glucose (mg/dL) 161 H Random Glucose Calcium Total Bilirubin AST ALT Alkaline Phosphatase Total Protein Albumin Globulin Albumin/Globulin Ratio Arterial Blood Potassium 4.2 06/29/17 06/29/17 06/29/17 06:30 07:21 11:02 WBC RBC Hgb Hct MCV MCH MCHC RDW Plt Count pCO2 pO2 HCO3 ABG pH ABG Total CO2 ABG O2 Saturation ABG Base Excess Andry Test ABG Potassium A-a O2 Difference Sodium 142 Chloride 118 H Glucose Lactate Vent Mode FiO2 Potassium 4.3 Carbon Dioxide 17 L Anion Gap 11 BUN 86 H Creatinine 3.8 H Est GFR ( Amer) 19 Est GFR (Non-Af Amer) 16 POC Glucose (mg/dL) 116 H 158 H Random Glucose 112 H Calcium 7.9 L Total Bilirubin 0.2 AST 19 ALT 47 Alkaline Phosphatase 148 H Total Protein 5.3 L Albumin 2.3 L Globulin 2.9 Albumin/Globulin Ratio 0.8 L Arterial Blood Potassium Assessment & Plan - Assessment and Plan (Free Text) Assessment: Cardiac arrest s/p resuscitated , had CPR Resp failure: Large left sided pleural effusion Anasarca: due to hypoalbuminemia , nephrotic syndrome DM Anemia CHINTAN CKD stage 4 Had SIRS but at the moment does not look septic. Plan: Transferred to ICU Vent setting: AC 500 , rate increased to 18/m after reviewing first EKG, PEEP 5 , Fio decreased to 80% Stat labs, CMP , CBC EKG: ordered and reviewed On zosyn and cefapime Will start low volume bicarb due to metabolic acidosis with renal failure DVT prophylaxis Heparin 5000 unit s/q q 8 H Renal and ID follow up. Need chest tube insertion, VATS or recurrent thoracentesis for recurrent pleural effusion.
[2017-06-29 18:12] LABS: BASO # 0.1 K/uL (0.0-0.2); BASO % 0.7 % (0.0-2.0); EOS % 0.3 % (0.0-4.0); HEMOGLOBIN 8.5 g/dL (12.0-18.0); LYMPH # 1.1 K/uL (1.0-4.3); LYMPH % 15.9 % (20.0-40.0); MEAN CELL VOLUME 96.3 fl (80.0-94.0); MEAN CORPUSCULAR HEMOGLOBIN 30.4 pg (27.0-31.0); MEAN CORPUSCULAR HGB CONC 31.6 g/dL (33.0-37.0); MEAN PLATELET VOLUME 10.2 fl (7.2-11.7); MONO # 0.3 K/uL (0.0-0.8); MONO % 4.2 % (0.0-10.0); NEUT # 5.6 K/uL (1.8-7.0); NEUT % 78.9 % (50.0-75.0); NRBC % 1.2 % (0.0-0.0); RBC 2.8 Mil/uL (4.40-5.90); WHITE BLOOD COUNT 7.1 K/uL (4.8-10.8)
--- NOTE | 2017-06-29 18:21 | PCM.RRT ---
<Kirby Webber - Last Filed: 06/29/17 18:34> VEIN ACCESS TECHNICIAN Nurse Assessment - Ventilator Settings Mode: PRVC/AC Ventilator Respiratory Rate Settin Ventilator Tidal Volume Settin PEEP/CPAP (cm H2O): 5 SAO2 %: 100 FIO2 (% Oxygen): 100 - Diagnostic Test Ordered EKG: Yes Chest X-Ray: Yes - Stat Labs Ordered VEIN ACCESS TECHNICIAN Stat Labs Ordered: CBC, BMP, TROPONIN, ABG CPR started during VEIN ACCESS TECHNICIAN?: Yes I.Reason for VEIN ACCESS TECHNICIAN - A) Acute Change in Patient: (Select all that apply): Acute change in heart rate less than 50 or greater than 120 - Neurological Status (Select all that apply): absent: Responsive - Respiratory Oxygen Delivery Method: BiPAP @% - Constitutional Appears: Other (Unresponsive) - Respiratory Exam Respiratory Exam: Decreased Breath Sounds (L/base), Rales, Wheezes - Cardiovascular Exam Cardiovascular Exam: absent: +S1, +S2 - GI/Abdominal Exam GI & Abdominal Exam: Soft - Neurological Exam Neurological Exam: absent: Alert, Oriented x3 - Extremities Exam Extremities Exam: Pedal Edema. absent: Normal Inspection Plan - Assessment of Findings&Treatment Plan 66 y/o M, homeless man, with PMHx of CHF, nephrotic syndrome, CKD, monoclonal gammopathy is called code blue after becoming unresponsive and cyanotic. Patient had been on Bipap since earlier today due to resp distress and high dose Lasix was started this morning after worsening Pleural Effusion overnight. When we arrived to bedside patient was already being evaluated by ICU attendant , he was found unresponsive and with no pulse, CPR was started and 2 Epi were given to patient. He was intubated at bedside. A pulse was obtained and patient was attached to ventilator and transferred to ICU still unresponsive with following VS: PO: 99% HR 115 BP 180/90 Cardiac arrest s/p CPR Large left sided pleural effusion Anasarca likely due to hypoalbuminemia, nephrotic syndrome DM Chronic Anemia Acute on CKD stage 4 Plan Transferred to ICU Vent setting: AC 500 , rate increased to 18/m after reviewing first EKG, PEEP 5 , Fio decreased to 80% Stat labs: CMP, CBC, Troponin, ABG EKG: ordered and reviewed CXR Case discussed with ICU attendant, Dr Pamela duke f/u labs. <Theresa Catalan - Last Filed: 06/29/17 18:54> Attending/Attestation - Attestation I have personally seen and examined this patient.: Yes I have fully participated in the care of the patient.: Yes I have reviewed all pertinent clinical information, including history, physical exam and plan: Yes Notes (Text): Diesel Stationary Engineer - Dr Santiago was present during the Code Blue CPR done. ACLS protocol followed. Patient was intubated and transferred to ICU
--- NOTE | 2017-06-29 18:24 | PCM.PROC ---
Procedures Attestation:: I certify that I have explained the specified Operation(s) or Procedure(s), risks, benefits and reasonable alternatives to the Patient and/or other person responsible. The opportunity was given to ask questions and all questions answered - Intubation Time Out Performed: No (intubated during code blue) Sedative: None Laryngoscope: Osorio ET Tube Size: 7.5 ET Tube Uncuffed: Yes ET Tube Secured at Depth: 22 ET Tube Secured Locarion: Lips ET Tube Placement Confirmation: Visualized Passing Through Cords, Breath Sounds Equal Bilaterally, No Breath Sounds Over Epigastrum, Confirmation w/Capnometry Patient Tolerated Procedure: Other Procedure Immediate Complications: None (CXR ordered, reviewed, appropraite location of ETT confirmed.)
[2017-06-29] MEDS ORDERED: Sodium Bicarbonate 8.4% 150 MEQ in Dextrose 5% In Water 1,000 ML IV SCH (18:30)
[2017-06-29 18:59] LABS: TROPONIN I 0.015 ng/mL (0.00-0.120)
[2017-06-29 19:05] LABS: ALB/GLOB RATIO 0.9 (1.0-2.1); ALBUMIN 2.5 g/dL (3.5-5.0); CALCIUM 7.8 mg/dL (8.4-10.2)
--- NOTE | 2017-06-29 19:39 | CP.PCM.PCO ---
Addendum Addendum: 06/29/17 19:19 66 y/o M with Hx of CHF, CKD and monoclonal gammopathy s/p CPR due to cardiac arrest is stable after being transferred to ICU and attached to ventilator. Labs reviewed: ABG + CMP consistent with non anion gap metabolic acidosis. 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 After discussing the possibility of thoracentesis vs chest tube placement with environmental field services technician and considering that patient is stable after placed on vent but s/p cardiac arrest, we will consult IR for thoracentesis or Thoracic Sx for chest tube placement after discussing it with morning team tomorrow morning. 06/29/17 20:08 Spoke with Valeriy Morejon(Person to notify) and made aware of last events. Will come to see patient tomorrow.
[2017-06-29 21:45] LABS: FOLATE 10.4 ng/mL
[2017-06-30] MEDS: Albumin Human 25% (12.5 gm/50 ml) IV SCH (05:00)
[2017-06-30 05:41] LABS: HEMOGLOBIN 8.4 g/dL (12.0-18.0); MEAN CELL VOLUME 95.7 fl (80.0-94.0); MEAN CORPUSCULAR HEMOGLOBIN 31.3 pg (27.0-31.0); MEAN CORPUSCULAR HGB CONC 32.7 g/dL (33.0-37.0); RBC 2.69 Mil/uL (4.40-5.90); RED CELL DISTRIBUTION WIDTH 17.6 % (11.5-14.5); WHITE BLOOD COUNT 13.7 K/uL (4.8-10.8)
[2017-06-30 05:43] LABS: ABG ALLEN TEST YES; ARTERIAL BLOOD GAS HCO3 18.7 mmol/L (21-28); ARTERIAL BLOOD GAS HEMOGLOBIN 8.6 g/dL (11.7-17.4); ARTERIAL BLOOD GAS O2 CAPACITY 12.6 mL/dL (16-24); ARTERIAL BLOOD GAS O2 CONTENT 12.6 ML/dL (15-23); ARTERIAL BLOOD GAS O2 SAT 99.9 % (95-98); ARTERIAL BLOOD GAS PCO2 36 mm/Hg (35-45); ARTERIAL BLOOD GAS PO2 274 mm/Hg (80-100); ARTERIAL BLOOD GAS TCO2 18.8 mmol/L (22-28)
[2017-06-30 06:07] LABS: ALB/GLOB RATIO 0.9 (1.0-2.1); ALBUMIN 2.7 g/dL (3.5-5.0); CALCIUM 8.1 mg/dL (8.4-10.2)
[2017-06-30] MEDS: Insulin Lispro (humaLOG) 100 Units/ml Inj SC SCH ×4 (06:43→22:00)
[2017-06-30] MEDS: Albuterol-Ipratrop 3 mg / 0.5 (3 ml) UD INH SCH ×4 (07:29→20:10)
--- NOTE | 2017-06-30 07:58 | CP.PCM.PN ---
Subjective - Date & Time of Evaluation Date of Evaluation: 06/30/17 Time of Evaluation: 07:05 - Subjective Subjective: Patient seen and examined bedside in ICU. Patient was transferred to ICU yesterday after cardiac arrest. Patient today awake, intubated, on ventilator PRVC/AC FIO2 50% peep 5, RR 18. Pt able to open eye and follow commands while on ventilator, able to move partially hand and foot. Noted b/l arms swollen, more swollen compared with feet.Salazar with yellow urine 100 ml Objective - Vital Signs/Intake and Output Vital Signs (last 24 hours): Temp Pulse Resp BP Pulse Ox 97.3 F L 56 L 18 158/76 H 100 06/30/17 04:00 06/30/17 06:00 06/30/17 06:00 06/30/17 06:00 06/30/17 06:00 Intake and Output: 06/30/17 06/30/17 06:59 18:59 Intake Total 880 Output Total 250 Balance 630 - Medications Medications: Current Medications Albuterol/Ipratropium (Duoneb 3 Mg/0.5 Mg (3 Ml) Ud) 3 ml INH RQID [facility] Last Admin: 06/30/17 07:29 Dose: 3 ml Amlodipine Besylate (Norvasc) 10 mg PO DAILY [facility] Last Admin: 06/29/17 09:15 Dose: Not Given Bacitracin (Bacitracin Oint) 1 applic TOP TID [facility] Last Admin: 06/29/17 16:36 Dose: 1 applic Calcium Acetate (Phoslo) 2,001 mg PO WM [facility] Last Admin: 06/29/17 17:50 Dose: Not Given Dextrose (Dextrose 50% Inj) 0 ml IV STAT PRN; Protocol PRN Reason: Hypoglycemia Protocol Dextrose (Glutose 15) 0 gm PO ONCE PRN; Protocol PRN Reason: Hypoglycemia Protocol Enoxaparin Sodium (Lovenox) 30 mg SC DAILY [facility] PRN Reason: Protocol Last Admin: 06/29/17 09:25 Dose: 30 mg Epoetin Roel (Procrit) 10,000 unit SC MWF [facility] Last Admin: 06/27/17 12:15 Dose: 10,000 unit Ergocalciferol (Drisdol 50,000 Intl Units Cap) 1 cap PO Q7D [facility] Furosemide (Lasix) 80 mg IV Q8 [facility] Last Admin: 06/30/17 01:45 Dose: Not Given Glucagon (Glucagen Diagnostic Kit) 0 mg IM STAT PRN; Protocol PRN Reason: Hypoglycemia Protocol Haloperidol Lactate (Haldol) 0.5 mg IM Q6 PRN PRN Reason: Agitation Last Admin: 06/25/17 14:35 Dose: 0.5 mg Hydralazine HCl (Apresoline) 50 mg PO Q8 [facility] Last Admin: 06/30/17 01:45 Dose: Not Given Linezolid (Zyvox 600mg/300ml D5w) 600 mg in 300 mls @ 300 mls/hr IVPB Q12 [facility] PRN Reason: Protocol Last Admin: 06/29/17 21:26 Dose: 300 mls/hr Cefepime HCl 1 gm/ Sodium (Chloride) 100 mls @ 100 mls/hr IVPB DAILY [facility] PRN Reason: Protocol Last Admin: 06/29/17 09:24 Dose: 100 mls/hr Sodium Bicarbonate 150 meq/ (Dextrose) 1,150 mls @ 60 mls/hr IV .[id number] [facility] Stop: 06/30/17 18:29 Last Admin: 06/29/17 20:15 Dose: 60 mls/hr Insulin Human Lispro (Humalog) 0 units SC ACHS [facility] PRN Reason: Protocol Last Admin: 06/30/17 06:43 Dose: 3 units Levalbuterol HCl (Xopenex) 0.63 mg INH RQ8 PRN PRN Reason: Shortness of Breath Pantoprazole Sodium (Protonix Inj) 40 mg IVP DAILY [facility] Last Admin: 06/29/17 09:17 Dose: 40 mg Thiamine HCl (Vitamin B1 Tab) 100 mg PO BID [facility] Last Admin: 06/29/17 17:51 Dose: Not Given - Labs Labs: 06/30/17 04:35 06/30/17 04:35 PT 14.7 Seconds (9.8-13.1) H 06/24/17 07:45 INR 1.3 (0.9-1.2) H 06/24/17 07:45 APTT 45.1 Seconds (25.6-37.1) H 06/22/17 20:33 - Constitutional Appears: Non-toxic, No Acute Distress - Head Exam Head Exam: ATRAUMATIC, NORMOCEPHALIC - Eye Exam Eye Exam: Normal appearance - ENT Exam ENT Exam: Mucous Membranes Moist - Neck Exam Neck Exam: Normal Inspection - Respiratory Exam Respiratory Exam: Decreased Breath Sounds (b/l more left lung base). absent: Rhonchi, Wheezes - Cardiovascular Exam Cardiovascular Exam: REGULAR RHYTHM, +S1, +S2 - GI/Abdominal Exam GI & Abdominal Exam: Soft, Normal Bowel Sounds. absent: Tenderness - Extremities Exam Extremities Exam: Pedal Edema (left foot 1+) Additional comments: B/L hands swollen , pitting edema 2+ - Neurological Exam Neurological Exam: Awake Additional comments: patient intubated but awake, able to open eyes and move partially 4 ext - Skin Skin Exam: Pallor Assessment and Plan - Assessment and Plan (Free Text) Plan: 66 yo M w/ pmh of htn, dm, CKD IIIB w/ 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, monoclonal gammopathy, recurrent L pleural effusion, admitted for sepsis, Hypothermia, CHINTAN on CKD 1) Acute Respiratory Failure secondary to worsening pleural effusion on nephrotic syndrome -Admitted ICU -s/p cardiac arrest yesterday evening with ROSC after 4 min and 2 rounds of epi -Intubated On venitilator day # 1 PRVC/AC FIO2 50 %, Peep 5, RR: 18 -ABG: PH 7.3 HCO3 18 metabolic acidosis: improving -f/u CXR, ABG 2) Recurrent Left Pleural effusion - S/P left thoracocentesis: Removed 1.2 L of straw colored fluid. 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 -PLt 119 -F/U CBC 5) Altered mental status (waxing and waning) - Possibly secondary to the Metabolic encephalopathy vs UTI - Initial Urine showed gram positive coagulase negative - Repeat Urine Culture is negative: No Growth - C/W Neuro recommendations - C/W Maxapine ( day 5) and Linozolid ( day 6) 6) Hypothermia -resolved - Rectal temperature normalized - Neuro consult appreciated - Repeat EKG WNL -B12 high >1000, folate normal,lactate 1.5 nl - F/U with Prolactin, Cortisol, Ionized Calcium,, MRI, Blood culture, Urine Culture. 7) UTI ( Resolved) - Initial Urine Culture: > 100,000 gram positive coci coagulase negative. Similar to previous admission - Repeat Urine Culture is negative: No Growth. - C/W Maxapine and Linozolid 8) CHINTAN on CKD stage 4 w/ new onset of ATN - Worsening of CKD from stage 3 to stage 4 secondary to CHINTAN - Kidney function has shown slight improvement. - Nephorologist consult appreciated: Advised to continue KEVIN inhibition and DM control. no HD for now - F/U with morning CMP 9) Indolent Multiple myeloma - Has monoclonal gammopathy but wasn't at level of MM per previous bone marrow -Bone marrow biopsy 05/05/17 hypocellular bone marrow with scattered plasma cells. no evidence of overt or advanced myelodysplasia, acute leukemia, met neoplasm or lymphoma. - Hemo-Onc consult suggested 10) Sepsis - ( resolved) - Afebrile - SIRS(hypothermia,tachpnea) plus UTI, on admission - Initial chest Chest X ray shows pulmonary vascular congestion with small right and moderate left pleural effusions. Left basilar infiltrate not excluded. - Repeat X Ray shows decrease in size of residual small left pleural effusion post thoracocentesis. Stable small right pleural effusion. - Blood culture x 2 negative - Urine culture showed :Urine showed gram positive coagulase negative >100,000 - C/W ID recommendations - C/W Maxapine day # 5 and Linozolid day # 6 -Procalcitonin normal 0.05 11) Acute diastolic CHF secondary to pulmonary edema and fluid overload -ProBNP 3500 -Echo 05/31/17 normal EF 60-65% - D/C lasix as per nephro 12) DM 2 -home meds hold -SSI -Hga1c 7.2 04/2017 13) HTN - Hydralazine 50 Q8 - Amlodipine 10 mg daily 14) Anemia -secondary to CKD - HB: 8.8, HCT: 27.7 - C/W procrit 15) DVT prophylaxis -Lovenox 30 mg sc (renal dose Cr CL 18)
--- NOTE | 2017-06-30 08:44 | RAD ---
HISTORY: unresponsive/intubated COMPARISON: Chest x-ray performed 06/29/17 at 429 hours TECHNIQUE: Chest, one view. FINDINGS: Endotracheal tube tip terminates approximately 5.5 cm above the endy. Numerous external wires and leads obscure evaluation of the underlying parenchyma. LUNGS: Small moderate left and small right pleural effusions and associated consolidations. Pulmonary venous congestion. No definite pneumothorax. Please note that chest x-ray has limited sensitivity for the detection of pulmonary masses. CARDIOVASCULAR: Cardiomegaly. Atherosclerotic calcifications of the aorta. OSSEOUS STRUCTURES: Osseous demineralization. Degenerative changes. VISUALIZED UPPER ABDOMEN: Unremarkable. OTHER FINDINGS: None. IMPRESSION: Endotracheal tube tip terminates approximately 5.5 cm above the endy. Small moderate left and small right pleural effusions and associated consolidations. Pulmonary venous congestion. Cardiomegaly.
[2017-06-30] MEDS: Bacitracin OINT 15GM TOP SCH ×3 (09:19→16:38)
[2017-06-30] MEDS: Enoxaparin 30 mg Syringe SC SCH (09:21)
[2017-06-30] MEDS: Linezolid 600 mg in D5W 300 ml 600 MG/300 ML BAG IVPB SCH ×2 (09:22→20:37)
[2017-06-30] MEDS: Cefepime 1 GM in Sodium Chloride 0.9% 100 ML IVPB SCH (09:23)
--- NOTE | 2017-06-30 09:34 | CP.PCM.PN ---
Subjective - Date & Time of Evaluation Date of Evaluation: 06/30/17 Time of Evaluation: 09:34 - Subjective Subjective: EVENTS OF YESTERDAY NOTED PT IS INTUBATED AND BEING VENTILATED WILL PROBABLY NEED IR FOR THORACENTESES WILL CONTINUE TO FOLLOW WITH YOU Objective - Vital Signs/Intake and Output Vital Signs (last 24 hours): Temp Pulse Resp BP Pulse Ox 98.7 F 58 L 24 152/66 H 100 06/30/17 08:00 06/30/17 08:00 06/30/17 08:00 06/30/17 09:20 06/30/17 08:00 Intake and Output: 06/30/17 06/30/17 06:59 18:59 Intake Total 880 Output Total 250 Balance 630 - Medications Medications: Current Medications Albuterol/Ipratropium (Duoneb 3 Mg/0.5 Mg (3 Ml) Ud) 3 ml INH RQID [facility] Last Admin: 06/30/17 07:29 Dose: 3 ml Amlodipine Besylate (Norvasc) 10 mg PO DAILY [facility] Last Admin: 06/30/17 09:23 Dose: 10 mg Bacitracin (Bacitracin Oint) 1 applic TOP TID [facility] Last Admin: 06/30/17 09:19 Dose: 1 applic Calcium Acetate (Phoslo) 2,001 mg PO WM [facility] Last Admin: 06/30/17 08:21 Dose: Not Given Dextrose (Dextrose 50% Inj) 0 ml IV STAT PRN; Protocol PRN Reason: Hypoglycemia Protocol Dextrose (Glutose 15) 0 gm PO ONCE PRN; Protocol PRN Reason: Hypoglycemia Protocol Enoxaparin Sodium (Lovenox) 30 mg SC DAILY [facility] PRN Reason: Protocol Last Admin: 06/30/17 09:21 Dose: 30 mg Epoetin Roel (Procrit) 10,000 unit SC MWF [facility] Last Admin: 06/27/17 12:15 Dose: 10,000 unit Ergocalciferol (Drisdol 50,000 Intl Units Cap) 1 cap PO Q7D [facility] Furosemide (Lasix) 80 mg IV Q8 [facility] Last Admin: 06/30/17 09:20 Dose: 80 mg Glucagon (Glucagen Diagnostic Kit) 0 mg IM STAT PRN; Protocol PRN Reason: Hypoglycemia Protocol Haloperidol Lactate (Haldol) 0.5 mg IM Q6 PRN PRN Reason: Agitation Last Admin: 06/25/17 14:35 Dose: 0.5 mg Hydralazine HCl (Apresoline) 50 mg PO Q8 [facility] Last Admin: 06/30/17 09:20 Dose: 50 mg Linezolid (Zyvox 600mg/300ml D5w) 600 mg in 300 mls @ 300 mls/hr IVPB Q12 [facility] PRN Reason: Protocol Last Admin: 06/30/17 09:22 Dose: 300 mls/hr Cefepime HCl 1 gm/ Sodium (Chloride) 100 mls @ 100 mls/hr IVPB DAILY [facility] PRN Reason: Protocol Last Admin: 06/30/17 09:23 Dose: 100 mls/hr Sodium Bicarbonate 150 meq/ (Dextrose) 1,150 mls @ 60 mls/hr IV .[id number] [facility] Stop: 06/30/17 18:29 Last Admin: 06/29/17 20:15 Dose: 60 mls/hr Insulin Human Lispro (Humalog) 0 units SC ACHS [facility] PRN Reason: Protocol Last Admin: 06/30/17 06:43 Dose: 3 units Levalbuterol HCl (Xopenex) 0.63 mg INH RQ8 PRN PRN Reason: Shortness of Breath Pantoprazole Sodium (Protonix Inj) 40 mg IVP DAILY [facility] Last Admin: 06/30/17 09:23 Dose: 40 mg Thiamine HCl (Vitamin B1 Tab) 100 mg PO BID [facility] Last Admin: 06/30/17 09:22 Dose: 100 mg - Labs Labs: 06/30/17 04:35 06/30/17 04:35 PT 14.7 Seconds (9.8-13.1) H 06/24/17 07:45 INR 1.3 (0.9-1.2) H 06/24/17 07:45 APTT 45.1 Seconds (25.6-37.1) H 06/22/17 20:33
[2017-06-30] MEDS: EPOETIN ALFA 10,000 UNIT/ML ML SC SCH (09:37)
--- NOTE | 2017-06-30 10:07 | CARD ---
APPROVED REPORT EKG Measurement Heart [id number] <Conclusion> Sinus tachycardia with occasional and consecutive premature ventricular complexes and fusion complexes Possible Left atrial enlargement T wave abnormality, consider lateral ischemia Abnormal ECG
--- NOTE | 2017-06-30 12:00 | RAD ---
HISTORY: pleural effusion COMPARISON: Chest x-ray performed 06/29/17 TECHNIQUE: Chest, one view. FINDINGS: Endotracheal tube terminates approximately 5 cm above the endy. Nasogastric tube extends expected location of the stomach, distal tip excluded from view. LUNGS: Bilateral lower lobe infiltrates and small pleural effusions. Pulmonary venous congestion. No definite pneumothorax. Biapical pleural thickening. CARDIOVASCULAR: Cardiomegaly. Atherosclerotic calcifications of the aorta. OSSEOUS STRUCTURES: Osseous demineralization. Degenerative changes. VISUALIZED UPPER ABDOMEN: Unremarkable. OTHER FINDINGS: None. IMPRESSION: Endotracheal tube terminates approximately 5 cm above the endy. Nasogastric tube extends to the expected location of the stomach, distal tip excluded from view. Bilateral lower lobe infiltrates and small pleural effusions. Pulmonary venous congestion. Biapical pleural thickening. Cardiomegaly. Atherosclerotic calcifications of the aorta.
--- NOTE | 2017-06-30 12:14 | CP.PCM.PN ---
Subjective - Date & Time of Evaluation Date of Evaluation: 06/30/17 Time of Evaluation: 11:00 - Subjective Subjective: 66 yo M w/ pmh of htn, dm, CKD IIIB w/ 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 nephropathy, monoclonal gammopathy, recurrent L pleural effusion, admitted with hypothermia, CHINTAN, Patient suffered PEA cardiac arrest yesterday evening with ROSC after 4 min and 2 rounds of epi; currently intubated but alert; 250 cc UO overnight; Objective - Vital Signs/Intake and Output Vital Signs (last 24 hours): Temp Pulse Resp BP Pulse Ox 98.7 F 58 L 24 152/66 H 100 06/30/17 08:00 06/30/17 08:00 06/30/17 08:00 06/30/17 09:20 06/30/17 08:00 Intake and Output: 06/30/17 06/30/17 06:59 18:59 Intake Total 880 120 Output Total 250 Balance 630 120 - Medications Medications: Current Medications Albuterol/Ipratropium (Duoneb 3 Mg/0.5 Mg (3 Ml) Ud) 3 ml INH RQID [facility] Last Admin: 06/30/17 11:04 Dose: 3 ml Amlodipine Besylate (Norvasc) 10 mg PO DAILY [facility] Last Admin: 06/30/17 09:23 Dose: 10 mg Bacitracin (Bacitracin Oint) 1 applic TOP TID [facility] Last Admin: 06/30/17 09:19 Dose: 1 applic Calcium Acetate (Phoslo) 2,001 mg PO WM [facility] Last Admin: 06/30/17 08:21 Dose: Not Given Dextrose (Dextrose 50% Inj) 0 ml IV STAT PRN; Protocol PRN Reason: Hypoglycemia Protocol Dextrose (Glutose 15) 0 gm PO ONCE PRN; Protocol PRN Reason: Hypoglycemia Protocol Enoxaparin Sodium (Lovenox) 30 mg SC DAILY [facility] PRN Reason: Protocol Last Admin: 06/30/17 09:21 Dose: 30 mg Epoetin Roel (Procrit) 10,000 unit SC MWF [facility] Last Admin: 06/30/17 09:37 Dose: 10,000 unit Ergocalciferol (Drisdol 50,000 Intl Units Cap) 1 cap PO Q7D [facility] Furosemide (Lasix) 80 mg IV Q8 [facility] Last Admin: 06/30/17 09:20 Dose: 80 mg Glucagon (Glucagen Diagnostic Kit) 0 mg IM STAT PRN; Protocol PRN Reason: Hypoglycemia Protocol Haloperidol Lactate (Haldol) 0.5 mg IM Q6 PRN PRN Reason: Agitation Last Admin: 06/25/17 14:35 Dose: 0.5 mg Hydralazine HCl (Apresoline) 50 mg PO Q8 [facility] Last Admin: 06/30/17 09:20 Dose: 50 mg Linezolid (Zyvox 600mg/300ml D5w) 600 mg in 300 mls @ 300 mls/hr IVPB Q12 [facility] PRN Reason: Protocol Last Admin: 06/30/17 09:22 Dose: 300 mls/hr Cefepime HCl 1 gm/ Sodium (Chloride) 100 mls @ 100 mls/hr IVPB DAILY [facility] PRN Reason: Protocol Last Admin: 06/30/17 09:23 Dose: 100 mls/hr Sodium Bicarbonate 150 meq/ (Dextrose) 1,150 mls @ 60 mls/hr IV .[id number] [facility] Stop: 06/30/17 18:29 Last Admin: 06/29/17 20:15 Dose: 60 mls/hr Insulin Human Lispro (Humalog) 0 units SC ACHS [facility] PRN Reason: Protocol Last Admin: 06/30/17 06:43 Dose: 3 units Levalbuterol HCl (Xopenex) 0.63 mg INH RQ8 PRN PRN Reason: Shortness of Breath Pantoprazole Sodium (Protonix Inj) 40 mg IVP DAILY [facility] Last Admin: 06/30/17 09:23 Dose: 40 mg Thiamine HCl (Vitamin B1 Tab) 100 mg PO BID [facility] Last Admin: 06/30/17 09:22 Dose: 100 mg - Labs Labs: 06/30/17 04:35 06/30/17 04:35 PT 14.7 Seconds (9.8-13.1) H 06/24/17 07:45 INR 1.3 (0.9-1.2) H 06/24/17 07:45 APTT 45.1 Seconds (25.6-37.1) H 06/22/17 20:33 - Constitutional Appears: Non-toxic, No Acute Distress, Chronically Ill - Eye Exam Eye Exam: absent: Scleral icterus - ENT Exam ENT Exam: Mucous Membranes Moist Additional comments: intubated; - Respiratory Exam Respiratory Exam: absent: Respiratory Distress Additional comments: markedly decreased breath sounds on L; - Cardiovascular Exam Cardiovascular Exam: RRR, +S1, +S2 - GI/Abdominal Exam GI & Abdominal Exam: Soft. absent: Distended, Tenderness - Exam Exam: absent: Bladder Distension Additional comments: eden in place; scrotal edema unchanged; - Extremities Exam Additional comments: markedly edematous UE and LE b/l; - Neurological Exam Neurological Exam: Alert, Awake Additional comments: following commands lethargically; - Psychiatric Exam Psychiatric exam: absent: Agitated - Skin Skin Exam: Warm. absent: Cyanosis Assessment and Plan (1) Acute renal failure Assessment & Plan: CHINTAN on CKD; ATN that was showing slow recovery, now with yet another ATN insult (cardiac arrest); borderline oliguria despite being on IV lasix 80 mg q8h; moderate non-gap metabolic acidosis noted, started on gentle bicarb drip by tile mechanic helper; Overall prognosis appears grim; no overt indication for initiating CUSTOMER SUCCESS INTERN at this time with stable FIO2 requirement (50%) and no electrolyte abnormality in need of urgent correction; -continue IV lasix as above; -will monitor closely for need to initiate CUSTOMER SUCCESS INTERN Status: Acute (2) Pleural effusion Assessment & Plan: Recurrent L pleural effusion; consistent with transudate but rapidity of recurrence (as well as being unilateral) is suspicious for another cause; should consider pleural biopsy; may need pleurodesis if another etiology cannot be found; given IV albumin yesterday in an effort to decrease third spacing/ pleural effusion until thoracentesis could be done, will hold off for now as patient is stable after intubation; Status: Chronic (3) Hypothermia Assessment & Plan: Recurrent, of unclear etiology; f/u neuro and heme workup; Status: Acute (4) Altered mental status Status: Acute (5) SIRS (systemic inflammatory response syndrome) Assessment & Plan: No bacteremia but still concern for underlying infectious process; on linezolid and cefepime (dosed for CrCl < 10); f/u procalcitonin; Status: Acute (6) Nephrotic syndrome Assessment & Plan: Severe hypoalbuminemia; due to DM nephropathy; 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 that can be explained by the same process or possibly due to NSAID use; no good treatment options other than KEVIN blockade; no role for immunosuppressive therapy ; -awaiting renal vein duplex to r/o thrombosis (rare complication of nephrotic syndrome); Status: Chronic (7) Anemia Assessment & Plan: Relatively stable, continue EPO 3 times per week; Status: Chronic (8) Chronic kidney disease, stage 3 (moderate) Status: Chronic (9) Hypertensive CKD (chronic kidney disease) Assessment & Plan: BP mildly elevated; continue norvasc 10 and hydralazine 50 mg q8h for now; Status: Acute - Assessment and Plan (Free Text) Assessment: Critical care time spent assessing patient, and discussing with CCM and primary teams > 35 minutes;
[2017-06-30 14:54] LABS: ABG ALLEN TEST YES; ARTERIAL BLOOD GAS HCO3 21.5 mmol/L (21-28); ARTERIAL BLOOD GAS O2 SAT 99.4 % (95-98); ARTERIAL BLOOD GAS PCO2 31 mm/Hg (35-45); ARTERIAL BLOOD GAS PH 7.41 (7.35-7.45); ARTERIAL BLOOD GAS PO2 161 mm/Hg (80-100); ARTERIAL BLOOD GAS TCO2 20.6 mmol/L (22-28)
--- NOTE | 2017-06-30 15:42 | CP.CCUPN ---
CCU Subjective - Physician Review Subjective (Free Text): Events overnight reviewed. 06/30/17 15:40 Critical Care Time Spent (in minutes): 40 CCU Objective - Vital Signs / Intake & Output Vital Signs (Last 4 hours): Vital Signs Temp Pulse Resp BP Pulse Ox 06/30/17 14:00 59 L 22 162/68 H 100 06/30/17 12:00 98.4 F 59 L 23 165/64 H 100 Intake and Output (Last 8hrs): Intake & Output 06/30/17 06/30/17 06/30/17 06:59 14:59 22:59 Intake Total 880 700 Output Total 250 Balance 630 700 Intake: IV 480 300 Intake, Piggyback 300 400 Albumin 100 Output: Urine 250 Urethral (Salazar) 250 Other: # Bowel Movements 1 - Physical Exam Physical Exam Limitations: Positive for: Altered Mental Status Head: Positive for: Atraumatic, Normocephalic Pupils: Positive for: PERRL Mouth: Positive for: Moist Mucous Membranes Respiratory/Chest: Positive for: Clear to Auscultation, Good Air Exchange, Respiratory Distress Abdomen: Positive for: Normal Bowel Sounds. Negative for: Tenderness, Distention, Peritoneal Signs Upper Extremity: Positive for: Normal Inspection Lower Extremity: Positive for: Normal Inspection Neurological: Positive for: Other (nor arousable off sedation) - Medications Active Medications: Active Medications Generic Name Dose Route Start Last Admin Trade Name Freq PRN Reason Stop Dose Admin Albuterol/Ipratropium 3 ml 06/28/17 16:00 06/30/17 15:15 Duoneb 3 Mg/0.5 Mg (3 Ml) Ud INH 3 ml RQID THOMAS Administration Amlodipine Besylate 10 mg 06/26/17 09:00 06/30/17 09:23 Norvasc PO 10 mg DAILY THOMAS Administration Bacitracin 1 applic 06/27/17 13:00 06/30/17 12:53 Bacitracin Oint TOP 1 applic TID THOMAS Administration Calcium Acetate 2,001 mg 06/24/17 18:30 06/30/17 12:54 Phoslo PO Not Given WM THOMAS Dextrose 0 ml 06/22/17 22:36 Dextrose 50% Inj IV STAT PRN Hypoglycemia Protocol Protocol Dextrose 0 gm 06/22/17 22:36 Glutose 15 PO ONCE PRN Hypoglycemia Protocol Protocol Enoxaparin Sodium 30 mg 06/23/17 10:30 06/30/17 09:21 Lovenox SC 30 mg DAILY THOMAS Administration Protocol Epoetin Roel 10,000 unit 06/23/17 13:00 06/30/17 09:37 Procrit SC 10,000 unit MWF THOMAS Administration Ergocalciferol 1 cap 06/24/17 10:00 Drisdol 50,000 Intl Units Cap PO Q7D THOMAS Furosemide 80 mg 06/29/17 11:00 06/30/17 09:20 Lasix IV 80 mg Q8 THOMAS Administration Glucagon 0 mg 06/22/17 22:36 Glucagen Diagnostic Kit IM STAT PRN Hypoglycemia Protocol Protocol Haloperidol Lactate 0.5 mg 06/25/17 14:45 06/25/17 14:35 Haldol IM 0.5 mg Q6 PRN Administration Agitation Hydralazine HCl 50 mg 06/26/17 19:30 06/30/17 09:20 Apresoline PO 50 mg Q8 THOMAS Administration Linezolid 600 mg in 300 mls @ 300 mls/hr 06/25/17 21:00 06/30/17 09:22 Zyvox 600mg/300ml D5w IVPB 300 mls/hr Q12 THOMAS Administration Protocol Cefepime HCl 1 gm/ Sodium 100 mls @ 100 mls/hr 06/26/17 09:00 06/30/17 09:23 Chloride IVPB 100 mls/hr DAILY THOMAS Administration Protocol Insulin Human Lispro 0 units 06/23/17 07:30 06/30/17 12:53 Humalog SC 3 units ACHS THOMAS Administration Protocol Levalbuterol HCl 0.63 mg 06/27/17 07:56 Xopenex INH RQ8 PRN Shortness of Breath Pantoprazole Sodium 40 mg 06/23/17 09:00 06/30/17 09:23 Protonix Inj IVP 40 mg DAILY THOMAS Administration Sodium Bicarbonate 1,300 mg 06/30/17 17:00 Sodium Bicarbonate Tab PO Q8 THOMAS Thiamine HCl 100 mg 06/24/17 21:30 06/30/17 09:22 Vitamin B1 Tab PO 100 mg BID THOMAS Administration - Patient Studies Lab Studies: Microbiology Studies 06/29/17 08:29 Gram Stain - Final Trachasp 06/25/17 16:51 Anaerobic Culture - Final Pleural Fluid NO ANAEROBES ISOLATED. 06/25/17 16:51 Gram Stain - Final Body Fluid - Pleural Fluid Body Fluid Culture - Preliminary NO GROWTH AFTER 2 DAYS 06/28/17 11:05 Blood Culture - Preliminary Blood NO GROWTH AFTER 48 HOURS 06/28/17 18:27 Gram Stain - Final Sputum Lab Studies 06/30/17 06/30/17 06/30/17 Range/Units 13:00 11:46 06:38 WBC (4.8-10.8) K/uL RBC (4.40-5.90) Mil/uL Hgb (12.0-18.0) g/dL Hct (35.0-51.0) % MCV (80.0-94.0) fl MCH (27.0-31.0) pg MCHC (33.0-37.0) g/dL RDW (11.5-14.5) % Plt Count (130-400) K/uL MPV (7.2-11.7) fl Neut % (Auto) (50.0-75.0) % Lymph % (Auto) (20.0-40.0) % [place] % (Auto) (0.0-10.0) % Eos % (Auto) (0.0-4.0) % Baso % (Auto) (0.0-2.0) % Neut # (1.8-7.0) K/uL Lymph # (1.0-4.3) K/uL [place] # (0.0-0.8) K/uL Eos # (0.0-0.7) K/uL Baso # (0.0-0.2) K/uL pCO2 31 L (35-45) mm/Hg pO2 161 H (80-100) mm/Hg HCO3 21.5 (21-28) mmol/L ABG pH 7.41 (7.35-7.45) ABG Total CO2 20.6 L (22-28) mmol/L ABG O2 Saturation 99.4 H (95-98) % ABG O2 Content (15-23) ML/dL ABG Base Excess -4.4 L (-2.0-3.0) mmol/L ABG Hemoglobin (11.7-17.4) g/dL ABG Carboxyhemoglobin (0.5-1.5) % POC ABG HHb (Measured) (0.0-5.0) % ABG Methemoglobin (0.0-3.0) % ABG O2 Capacity (16-24) mL/dL Andry Test Yes ABG Potassium 3.7 (3.6-5.2) mmol/L A-a O2 Difference 85.0 mm/Hg Hgb O2 Saturation (95.0-98.0) % Sodium 143.0 (132-148) mmol/L Chloride 118.0 H (98-107) mmol/L Glucose 171 H (75-110) mg/dL Lactate 1.1 (0.7-2.1) mmol/L Vent Mode A/c Mechanical Rate 22 FiO2 40.0 % Tidal Volume 500 PEEP 5 Crit Value Called To Crit Value Called By Crit Value Read Back Blood Gas Notified Time Potassium (3.6-5.0) MMOL/L Carbon Dioxide (22-30) mmol/L Anion Gap (10-20) BUN (9-20) mg/dl Creatinine (0.8-1.5) mg/dl Est GFR ( Amer) Est GFR (Non-Af Amer) POC Glucose (mg/dL) 201 H 211 H (65-110) mg/dL Random Glucose (75-110) mg/dL Calcium (8.4-10.2) mg/dL Total Bilirubin (0.2-1.3) mg/dl AST (17-59) U/L ALT (21-72) U/L Alkaline Phosphatase (38-126) U/L Troponin I (0.00-0.120) ng/mL Total Protein (6.3-8.2) G/DL Albumin (3.5-5.0) g/dL Globulin (2.2-3.9) gm/dL Albumin/Globulin Ratio (1.0-2.1) Folate ng/mL Procalcitonin (0.19-0.49) NG/ML Prolactin (3.7-17.9) ng/mL Arterial Blood Potassium 3.7 (3.6-5.2) mmol/L 06/30/17 06/30/17 06/30/17 Range/Units 05:36 04:35 04:35 WBC 13.7 H D (4.8-10.8) K/uL RBC 2.69 L (4.40-5.90) Mil/uL Hgb 8.4 L (12.0-18.0) g/dL Hct 25.8 L (35.0-51.0) % MCV 95.7 H (80.0-94.0) fl MCH 31.3 H (27.0-31.0) pg MCHC 32.7 L (33.0-37.0) g/dL RDW 17.6 H (11.5-14.5) % Plt Count 119 L (130-400) K/uL MPV (7.2-11.7) fl Neut % (Auto) (50.0-75.0) % Lymph % (Auto) (20.0-40.0) % [place] % (Auto) (0.0-10.0) % Eos % (Auto) (0.0-4.0) % Baso % (Auto) (0.0-2.0) % Neut # (1.8-7.0) K/uL Lymph # (1.0-4.3) K/uL [place] # (0.0-0.8) K/uL Eos # (0.0-0.7) K/uL Baso # (0.0-0.2) K/uL pCO2 36 (35-45) mm/Hg pO2 274 H (80-100) mm/Hg HCO3 18.7 L (21-28) mmol/L ABG pH 7.30 L (7.35-7.45) ABG Total CO2 18.8 L (22-28) mmol/L ABG O2 Saturation 99.9 H (95-98) % ABG O2 Content 12.6 L (15-23) ML/dL ABG Base Excess -8.0 L (-2.0-3.0) mmol/L ABG Hemoglobin 8.6 L (11.7-17.4) g/dL ABG Carboxyhemoglobin 0.9 (0.5-1.5) % POC ABG HHb (Measured) 0.1 (0.0-5.0) % ABG Methemoglobin 0.5 (0.0-3.0) % ABG O2 Capacity 12.6 L (16-24) mL/dL Andry Test Yes ABG Potassium (3.6-5.2) mmol/L A-a O2 Difference 251.0 mm/Hg Hgb O2 Saturation 98.5 H (95.0-98.0) % Sodium 145 (132-148) mmol/L Chloride 115 H (98-107) mmol/L Glucose (75-110) mg/dL Lactate (0.7-2.1) mmol/L Vent Mode A/c Mechanical Rate 18 FiO2 80.0 % Tidal Volume 500 PEEP 5 Crit Value Called To Crit Value Called By Crit Value Read Back Blood Gas Notified Time Potassium 4.4 (3.6-5.0) MMOL/L Carbon Dioxide 18 L (22-30) mmol/L Anion Gap 16 (10-20) BUN 89 H (9-20) mg/dl Creatinine 4.0 H (0.8-1.5) mg/dl Est GFR ( Amer) 18 Est GFR (Non-Af Amer) 15 POC Glucose (mg/dL) (65-110) mg/dL Random Glucose 209 H (75-110) mg/dL Calcium 8.1 L (8.4-10.2) mg/dL Total Bilirubin 0.4 (0.2-1.3) mg/dl AST 65 H (17-59) U/L ALT 78 H (21-72) U/L Alkaline Phosphatase 224 H (38-126) U/L Troponin I (0.00-0.120) ng/mL Total Protein 5.7 L (6.3-8.2) G/DL Albumin 2.7 L (3.5-5.0) g/dL Globulin 3.0 (2.2-3.9) gm/dL Albumin/Globulin Ratio 0.9 L (1.0-2.1) Folate ng/mL Procalcitonin (0.19-0.49) NG/ML Prolactin (3.7-17.9) ng/mL Arterial Blood Potassium (3.6-5.2) mmol/L 06/29/17 06/29/17 06/29/17 Range/Units 21:55 18:00 18:00 WBC 7.1 (4.8-10.8) K/uL RBC 2.80 L (4.40-5.90) Mil/uL Hgb 8.5 L (12.0-18.0) g/dL Hct 27.0 L (35.0-51.0) % MCV 96.3 H D (80.0-94.0) fl MCH 30.4 (27.0-31.0) pg MCHC 31.6 L (33.0-37.0) g/dL RDW 18.0 H (11.5-14.5) % Plt Count 123 L D (130-400) K/uL MPV 10.2 (7.2-11.7) fl Neut % (Auto) 78.9 H (50.0-75.0) % Lymph % (Auto) 15.9 L (20.0-40.0) % [place] % (Auto) 4.2 (0.0-10.0) % Eos % (Auto) 0.3 (0.0-4.0) % Baso % (Auto) 0.7 (0.0-2.0) % Neut # 5.6 (1.8-7.0) K/uL Lymph # 1.1 (1.0-4.3) K/uL [place] # 0.3 (0.0-0.8) K/uL Eos # 0.0 (0.0-0.7) K/uL Baso # 0.1 (0.0-0.2) K/uL pCO2 (35-45) mm/Hg pO2 (80-100) mm/Hg HCO3 (21-28) mmol/L ABG pH (7.35-7.45) ABG Total CO2 (22-28) mmol/L ABG O2 Saturation (95-98) % ABG O2 Content (15-23) ML/dL ABG Base Excess (-2.0-3.0) mmol/L ABG Hemoglobin (11.7-17.4) g/dL ABG Carboxyhemoglobin (0.5-1.5) % POC ABG HHb (Measured) (0.0-5.0) % ABG Methemoglobin (0.0-3.0) % ABG O2 Capacity (16-24) mL/dL Andry Test ABG Potassium (3.6-5.2) mmol/L A-a O2 Difference mm/Hg Hgb O2 Saturation (95.0-98.0) % Sodium 142 (132-148) mmol/L Chloride 117 H (98-107) mmol/L Glucose (75-110) mg/dL Lactate (0.7-2.1) mmol/L Vent Mode Mechanical Rate FiO2 % Tidal Volume PEEP Crit Value Called To Crit Value Called By Crit Value Read Back Blood Gas Notified Time Potassium 4.3 (3.6-5.0) MMOL/L Carbon Dioxide 17 L (22-30) mmol/L Anion Gap 12 (10-20) BUN 85 H (9-20) mg/dl Creatinine 4.2 H (0.8-1.5) mg/dl Est GFR ( Amer) 17 Est GFR (Non-Af Amer) 14 POC Glucose (mg/dL) 197 H (65-110) mg/dL Random Glucose 235 H (75-110) mg/dL Calcium 7.8 L (8.4-10.2) mg/dL Total Bilirubin 0.3 (0.2-1.3) mg/dl AST 76 H D (17-59) U/L ALT 68 (21-72) U/L Alkaline Phosphatase 236 H D (38-126) U/L Troponin I 0.0150 (0.00-0.120) ng/mL Total Protein 5.4 L (6.3-8.2) G/DL Albumin 2.5 L (3.5-5.0) g/dL Globulin 2.9 (2.2-3.9) gm/dL Albumin/Globulin Ratio 0.9 L (1.0-2.1) Folate ng/mL Procalcitonin (0.19-0.49) NG/ML Prolactin (3.7-17.9) ng/mL Arterial Blood Potassium (3.6-5.2) mmol/L 06/29/17 06/29/17 06/29/17 Range/Units 17:50 15:52 12:00 WBC (4.8-10.8) K/uL RBC (4.40-5.90) Mil/uL Hgb (12.0-18.0) g/dL Hct (35.0-51.0) % MCV (80.0-94.0) fl MCH (27.0-31.0) pg MCHC (33.0-37.0) g/dL RDW (11.5-14.5) % Plt Count (130-400) K/uL MPV (7.2-11.7) fl Neut % (Auto) (50.0-75.0) % Lymph % (Auto) (20.0-40.0) % [place] % (Auto) (0.0-10.0) % Eos % (Auto) (0.0-4.0) % Baso % (Auto) (0.0-2.0) % Neut # (1.8-7.0) K/uL Lymph # (1.0-4.3) K/uL [place] # (0.0-0.8) K/uL Eos # (0.0-0.7) K/uL Baso # (0.0-0.2) K/uL pCO2 43 (35-45) mm/Hg pO2 116 H (80-100) mm/Hg HCO3 14.8 L (21-28) mmol/L ABG pH 7.16 L* (7.35-7.45) ABG Total CO2 16.6 L (22-28) mmol/L ABG O2 Saturation 98.3 H (95-98) % ABG O2 Content (15-23) ML/dL ABG Base Excess -13.0 L (-2.0-3.0) mmol/L ABG Hemoglobin (11.7-17.4) g/dL ABG Carboxyhemoglobin (0.5-1.5) % POC ABG HHb (Measured) (0.0-5.0) % ABG Methemoglobin (0.0-3.0) % ABG O2 Capacity (16-24) mL/dL Andry Test Yes ABG Potassium 4.2 (3.6-5.2) mmol/L A-a O2 Difference 543.0 mm/Hg Hgb O2 Saturation (95.0-98.0) % Sodium 142.0 (132-148) mmol/L Chloride 118.0 H (98-107) mmol/L Glucose 265 H (75-110) mg/dL Lactate 1.5 (0.7-2.1) mmol/L Vent Mode A/c Mechanical Rate 16 FiO2 100.0 % Tidal Volume 500 PEEP 5 Crit Value Called To Pamela dye md Crit Value Called By 302 Crit Value Read Back Y Blood Gas Notified Time 1758 Potassium (3.6-5.0) MMOL/L Carbon Dioxide (22-30) mmol/L Anion Gap (10-20) BUN (9-20) mg/dl Creatinine (0.8-1.5) mg/dl Est GFR ( Amer) Est GFR (Non-Af Amer) POC Glucose (mg/dL) 143 H (65-110) mg/dL Random Glucose (75-110) mg/dL Calcium (8.4-10.2) mg/dL Total Bilirubin (0.2-1.3) mg/dl AST (17-59) U/L ALT (21-72) U/L Alkaline Phosphatase (38-126) U/L Troponin I (0.00-0.120) ng/mL Total Protein (6.3-8.2) G/DL Albumin (3.5-5.0) g/dL Globulin (2.2-3.9) gm/dL Albumin/Globulin Ratio (1.0-2.1) Folate ng/mL Procalcitonin 0.05 L (0.19-0.49) NG/ML Prolactin (3.7-17.9) ng/mL Arterial Blood Potassium 4.2 (3.6-5.2) mmol/L 06/28/17 Range/Units 13:49 WBC (4.8-10.8) K/uL RBC (4.40-5.90) Mil/uL Hgb (12.0-18.0) g/dL Hct (35.0-51.0) % MCV (80.0-94.0) fl MCH (27.0-31.0) pg MCHC (33.0-37.0) g/dL RDW (11.5-14.5) % Plt Count (130-400) K/uL MPV (7.2-11.7) fl Neut % (Auto) (50.0-75.0) % Lymph % (Auto) (20.0-40.0) % [place] % (Auto) (0.0-10.0) % Eos % (Auto) (0.0-4.0) % Baso % (Auto) (0.0-2.0) % Neut # (1.8-7.0) K/uL Lymph # (1.0-4.3) K/uL [place] # (0.0-0.8) K/uL Eos # (0.0-0.7) K/uL Baso # (0.0-0.2) K/uL pCO2 (35-45) mm/Hg pO2 (80-100) mm/Hg HCO3 (21-28) mmol/L ABG pH (7.35-7.45) ABG Total CO2 (22-28) mmol/L ABG O2 Saturation (95-98) % ABG O2 Content (15-23) ML/dL ABG Base Excess (-2.0-3.0) mmol/L ABG Hemoglobin (11.7-17.4) g/dL ABG Carboxyhemoglobin (0.5-1.5) % POC ABG HHb (Measured) (0.0-5.0) % ABG Methemoglobin (0.0-3.0) % ABG O2 Capacity (16-24) mL/dL Andry Test ABG Potassium (3.6-5.2) mmol/L A-a O2 Difference mm/Hg Hgb O2 Saturation (95.0-98.0) % Sodium (132-148) mmol/L Chloride (98-107) mmol/L Glucose (75-110) mg/dL Lactate (0.7-2.1) mmol/L Vent Mode Mechanical Rate FiO2 % Tidal Volume PEEP Crit Value Called To Crit Value Called By Crit Value Read Back Blood Gas Notified Time Potassium (3.6-5.0) MMOL/L Carbon Dioxide (22-30) mmol/L Anion Gap (10-20) BUN (9-20) mg/dl Creatinine (0.8-1.5) mg/dl Est GFR ( Amer) Est GFR (Non-Af Amer) POC Glucose (mg/dL) (65-110) mg/dL Random Glucose (75-110) mg/dL Calcium (8.4-10.2) mg/dL Total Bilirubin (0.2-1.3) mg/dl AST (17-59) U/L ALT (21-72) U/L Alkaline Phosphatase (38-126) U/L Troponin I (0.00-0.120) ng/mL Total Protein (6.3-8.2) G/DL Albumin (3.5-5.0) g/dL Globulin (2.2-3.9) gm/dL Albumin/Globulin Ratio (1.0-2.1) Folate 10.4 ng/mL Procalcitonin (0.19-0.49) NG/ML Prolactin 95.0 H (3.7-17.9) ng/mL Arterial Blood Potassium (3.6-5.2) mmol/L Laboratory Results - last 24 hr 06/28/17 06/29/17 06/29/17 13:49 12:00 15:52 WBC RBC Hgb Hct MCV MCH MCHC RDW Plt Count MPV Neut % (Auto) Lymph % (Auto) [place] % (Auto) Eos % (Auto) Baso % (Auto) Neut # Lymph # [place] # Eos # Baso # pCO2 pO2 HCO3 ABG pH ABG Total CO2 ABG O2 Saturation ABG O2 Content ABG Base Excess ABG Hemoglobin ABG Carboxyhemoglobin POC ABG HHb (Measured) ABG Methemoglobin ABG O2 Capacity Andry Test ABG Potassium A-a O2 Difference Hgb O2 Saturation Sodium Chloride Glucose Lactate Vent Mode Mechanical Rate FiO2 Tidal Volume PEEP Crit Value Called To Crit Value Called By Crit Value Read Back Blood Gas Notified Time Potassium Carbon Dioxide Anion Gap BUN Creatinine Est GFR ( Amer) Est GFR (Non-Af Amer) POC Glucose (mg/dL) 143 H Random Glucose Calcium Total Bilirubin AST ALT Alkaline Phosphatase Troponin I Total Protein Albumin Globulin Albumin/Globulin Ratio Folate 10.4 Procalcitonin 0.05 L Prolactin 95.0 H Arterial Blood Potassium 06/29/17 06/29/17 06/29/17 17:50 18:00 18:00 WBC 7.1 RBC 2.80 L Hgb 8.5 L Hct 27.0 L MCV 96.3 H D MCH 30.4 MCHC 31.6 L RDW 18.0 H Plt Count 123 L D MPV 10.2 Neut % (Auto) 78.9 H Lymph % (Auto) 15.9 L [place] % (Auto) 4.2 Eos % (Auto) 0.3 Baso % (Auto) 0.7 Neut # 5.6 Lymph # 1.1 [place] # 0.3 Eos # 0.0 Baso # 0.1 pCO2 43 pO2 116 H HCO3 14.8 L ABG pH 7.16 L* ABG Total CO2 16.6 L ABG O2 Saturation 98.3 H ABG O2 Content ABG Base Excess -13.0 L ABG Hemoglobin ABG Carboxyhemoglobin POC ABG HHb (Measured) ABG Methemoglobin ABG O2 Capacity Andry Test Yes ABG Potassium 4.2 A-a O2 Difference 543.0 Hgb O2 Saturation Sodium 142.0 142 Chloride 118.0 H 117 H Glucose 265 H Lactate 1.5 Vent Mode A/c Mechanical Rate 16 FiO2 100.0 Tidal Volume 500 PEEP 5 Crit Value Called To Pamela dye md Crit Value Called By 302 Crit Value Read Back Y Blood Gas Notified Time 1758 Potassium 4.3 Carbon Dioxide 17 L Anion Gap 12 BUN 85 H Creatinine 4.2 H Est GFR ( Amer) 17 Est GFR (Non-Af Amer) 14 POC Glucose (mg/dL) Random Glucose 235 H Calcium 7.8 L Total Bilirubin 0.3 AST 76 H D ALT 68 Alkaline Phosphatase 236 H D Troponin I 0.0150 Total Protein 5.4 L Albumin 2.5 L Globulin 2.9 Albumin/Globulin Ratio 0.9 L Folate Procalcitonin Prolactin Arterial Blood Potassium 4.2 06/29/17 06/30/17 06/30/17 21:55 04:35 04:35 WBC 13.7 H D RBC 2.69 L Hgb 8.4 L Hct 25.8 L MCV 95.7 H MCH 31.3 H MCHC 32.7 L RDW 17.6 H Plt Count 119 L MPV Neut % (Auto) Lymph % (Auto) [place] % (Auto) Eos % (Auto) Baso % (Auto) Neut # Lymph # [place] # Eos # Baso # pCO2 pO2 HCO3 ABG pH ABG Total CO2 ABG O2 Saturation ABG O2 Content ABG Base Excess ABG Hemoglobin ABG Carboxyhemoglobin POC ABG HHb (Measured) ABG Methemoglobin ABG O2 Capacity Andry Test ABG Potassium A-a O2 Difference Hgb O2 Saturation Sodium 145 Chloride 115 H Glucose Lactate Vent Mode Mechanical Rate FiO2 Tidal Volume PEEP Crit Value Called To Crit Value Called By Crit Value Read Back Blood Gas Notified Time Potassium 4.4 Carbon Dioxide 18 L Anion Gap 16 BUN 89 H Creatinine 4.0 H Est GFR ( Amer) 18 Est GFR (Non-Af Amer) 15 POC Glucose (mg/dL) 197 H Random Glucose 209 H Calcium 8.1 L Total Bilirubin 0.4 AST 65 H ALT 78 H Alkaline Phosphatase 224 H Troponin I Total Protein 5.7 L Albumin 2.7 L Globulin 3.0 Albumin/Globulin Ratio 0.9 L Folate Procalcitonin Prolactin Arterial Blood Potassium 06/30/17 06/30/17 06/30/17 05:36 06:38 11:46 WBC RBC Hgb Hct MCV MCH MCHC RDW Plt Count MPV Neut % (Auto) Lymph % (Auto) [place] % (Auto) Eos % (Auto) Baso % (Auto) Neut # Lymph # [place] # Eos # Baso # pCO2 36 pO2 274 H HCO3 18.7 L ABG pH 7.30 L ABG Total CO2 18.8 L ABG O2 Saturation 99.9 H ABG O2 Content 12.6 L ABG Base Excess -8.0 L ABG Hemoglobin 8.6 L ABG Carboxyhemoglobin 0.9 POC ABG HHb (Measured) 0.1 ABG Methemoglobin 0.5 ABG O2 Capacity 12.6 L Nadry Test Yes ABG Potassium A-a O2 Difference 251.0 Hgb O2 Saturation 98.5 H Sodium Chloride Glucose Lactate Vent Mode A/c Mechanical Rate 18 FiO2 80.0 Tidal Volume 500 PEEP 5 Crit Value Called To Crit Value Called By Crit Value Read Back Blood Gas Notified Time Potassium Carbon Dioxide Anion Gap BUN Creatinine Est GFR ( Amer) Est GFR (Non-Af Amer) POC Glucose (mg/dL) 211 H 201 H Random Glucose Calcium Total Bilirubin AST ALT Alkaline Phosphatase Troponin I Total Protein Albumin Globulin Albumin/Globulin Ratio Folate Procalcitonin Prolactin Arterial Blood Potassium 06/30/17 13:00 WBC RBC Hgb Hct MCV MCH MCHC RDW Plt Count MPV Neut % (Auto) Lymph % (Auto) [place] % (Auto) Eos % (Auto) Baso % (Auto) Neut # Lymph # [place] # Eos # Baso # pCO2 31 L pO2 161 H HCO3 21.5 ABG pH 7.41 ABG Total CO2 20.6 L ABG O2 Saturation 99.4 H ABG O2 Content ABG Base Excess -4.4 L ABG Hemoglobin ABG Carboxyhemoglobin POC ABG HHb (Measured) ABG Methemoglobin ABG O2 Capacity Andry Test Yes ABG Potassium 3.7 A-a O2 Difference 85.0 Hgb O2 Saturation Sodium 143.0 Chloride 118.0 H Glucose 171 H Lactate 1.1 Vent Mode A/c Mechanical Rate 22 FiO2 40.0 Tidal Volume 500 PEEP 5 Crit Value Called To Crit Value Called By Crit Value Read Back Blood Gas Notified Time Potassium Carbon Dioxide Anion Gap BUN Creatinine Est GFR ( Amer) Est GFR (Non-Af Amer) POC Glucose (mg/dL) Random Glucose Calcium Total Bilirubin AST ALT Alkaline Phosphatase Troponin I Total Protein Albumin Globulin Albumin/Globulin Ratio Folate Procalcitonin Prolactin Arterial Blood Potassium 3.7 Fingerstick Blood Sugar Results: 201 Critical Care Progress Note - Nutrition Nutrition: Nutrition Category Date Time Status NPO Diet [DIET] Diets 06/30/17 Dinner Active Assessment/Plan - Assessment and Plan (Free Text) Plan: 66 yo M w/ pmh of htn, dm, CKD IIIB w/ 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, monoclonal gammopathy, recurrent L pleural effusion, admitted with hypothermia, [facility] -Hypoxic respiratory failure: Continue ventilation to keep sPO2 >92 and pH b/w 7.35-7.45, continue bronchodialtors -s/p cardiac arrest: off pressors, will d/c IVF (clinically fluid overloaded) -COPD: continue bronchodilators -CKD stage III-IV; exact etiology unknown, nephrology eval, consider oral bicarb + calcitriol + EPA -?gamopathy: obtain heme/onc consult -AMS: not on sedation while on ventilator, opens eyes, but not able to move upper extremities, possible underlying anoxic brain injury -Sepsis: RLL infiltrate, suspect aspiration, continue abx (?linezoild/cefepie) f /u sputum culture and de-escalate -Chronic diastolic heart failure: will benefit from antiplatelets, av tarah tamara, will not benefit from ACEI, will benefit from statin DM 2 -BGM q6hrs, ISS lispro -Anemia of chronic disease: continue EPA -continue dvt/pud ppx -start tube feeds to avoid malnutrition -Patient not a candidate for CPAP/extubation as patients mental status is poor. Cc time 40 minutes - Date & Time Date: 06/30/17 Time: 15:42
[2017-06-30] MEDS ORDERED: Labetalol 5mg/ml (4ml) IVP PRN (15:44)
[2017-07-01 04:59] LABS: ABG ALLEN TEST YES; ARTERIAL BLOOD GAS HCO3 22.8 mmol/L (21-28); ARTERIAL BLOOD GAS HEMOGLOBIN 8.1 g/dL (11.7-17.4); ARTERIAL BLOOD GAS O2 CAPACITY 11.3 mL/dL (16-24); ARTERIAL BLOOD GAS O2 CONTENT 11.2 ML/dL (15-23); ARTERIAL BLOOD GAS O2 SAT 99.4 % (95-98); ARTERIAL BLOOD GAS PCO2 29 mm/Hg (35-45); ARTERIAL BLOOD GAS PH 7.46 (7.35-7.45); ARTERIAL BLOOD GAS PO2 110 mm/Hg (80-100); ARTERIAL BLOOD GAS TCO2 21.5 mmol/L (22-28)
[2017-07-01 05:50] LABS: BASO % 0.3 % (0.0-2.0); EOS # 0.1 K/uL (0.0-0.7); EOS % 0.5 % (0.0-4.0); HEMOGLOBIN 8.5 g/dL (12.0-18.0); LYMPH # 0.5 K/uL (1.0-4.3); MEAN CELL VOLUME 92.8 fl (80.0-94.0); MEAN CORPUSCULAR HEMOGLOBIN 31.9 pg (27.0-31.0); MEAN CORPUSCULAR HGB CONC 34.4 g/dL (33.0-37.0); MONO # 0.3 K/uL (0.0-0.8); MONO % 2.4 % (0.0-10.0); NEUT # 10.9 K/uL (1.8-7.0); NEUT % 92.8 % (50.0-75.0); NRBC % 0.2 % (0.0-0.0); RBC 2.67 Mil/uL (4.40-5.90); RED CELL DISTRIBUTION WIDTH 17.2 % (11.5-14.5); WHITE BLOOD COUNT 11.8 K/uL (4.8-10.8)
[2017-07-01 05:56] LABS: PLATELET COUNT 108 K/uL (130-400)
[2017-07-01 06:30] LABS: ALB/GLOB RATIO 0.9 (1.0-2.1); ALBUMIN 2.7 g/dL (3.5-5.0); CALCIUM 8.5 mg/dL (8.4-10.2)
[2017-07-01] MEDS: Insulin Lispro (humaLOG) 100 Units/ml Inj SC SCH ×4 (06:53→21:56)
--- NOTE | 2017-07-01 08:18 | CP.PCM.PN ---
Subjective - Date & Time of Evaluation Date of Evaluation: 07/01/17 Time of Evaluation: 07:00 - Subjective Subjective: Patient seen and examined bedside in ICU. Patient awake, alert, intubated day # 2 on settings AC, FIO2 30, peep 5 ,RR 22. Patient able to move his hands and feet, not sedated. Salazar with yellow urine 50 ml. Objective - Vital Signs/Intake and Output Vital Signs (last 24 hours): Temp Pulse Resp BP Pulse Ox 98.0 F 60 22 155/76 H 100 07/01/17 04:00 07/01/17 06:00 07/01/17 06:00 07/01/17 06:00 07/01/17 06:00 Intake and Output: 07/01/17 07/01/17 06:59 18:59 Intake Total 630 40 Output Total 800 Balance -170 40 - Medications Medications: Current Medications Albuterol/Ipratropium (Duoneb 3 Mg/0.5 Mg (3 Ml) Ud) 3 ml INH RQID [facility] Last Admin: 06/30/17 20:10 Dose: 3 ml Amlodipine Besylate (Norvasc) 10 mg PO DAILY [facility] Last Admin: 06/30/17 09:23 Dose: 10 mg Bacitracin (Bacitracin Oint) 1 applic TOP TID [facility] Last Admin: 06/30/17 16:38 Dose: 1 applic Calcium Acetate (Phoslo) 2,001 mg PO WM [facility] Last Admin: 06/30/17 18:33 Dose: 2,001 mg Dextrose (Dextrose 50% Inj) 0 ml IV STAT PRN; Protocol PRN Reason: Hypoglycemia Protocol Dextrose (Glutose 15) 0 gm PO ONCE PRN; Protocol PRN Reason: Hypoglycemia Protocol Enoxaparin Sodium (Lovenox) 30 mg SC DAILY [facility] PRN Reason: Protocol Last Admin: 06/30/17 09:21 Dose: 30 mg Epoetin Roel (Procrit) 10,000 unit SC MWF [facility] Last Admin: 06/30/17 09:37 Dose: 10,000 unit Ergocalciferol (Drisdol 50,000 Intl Units Cap) 1 cap PO Q7D [facility] Furosemide (Lasix) 80 mg IV Q8 [facility] Last Admin: 07/01/17 00:17 Dose: 80 mg Glucagon (Glucagen Diagnostic Kit) 0 mg IM STAT PRN; Protocol PRN Reason: Hypoglycemia Protocol Haloperidol Lactate (Haldol) 0.5 mg IM Q6 PRN PRN Reason: Agitation Last Admin: 06/25/17 14:35 Dose: 0.5 mg Hydralazine HCl (Apresoline) 50 mg PO Q8 [facility] Last Admin: 07/01/17 01:53 Dose: 50 mg Linezolid (Zyvox 600mg/300ml D5w) 600 mg in 300 mls @ 300 mls/hr IVPB Q12 [facility] PRN Reason: Protocol Last Admin: 06/30/17 20:37 Dose: 300 mls/hr Cefepime HCl 1 gm/ Sodium (Chloride) 100 mls @ 100 mls/hr IVPB DAILY [facility] PRN Reason: Protocol Last Admin: 06/30/17 09:23 Dose: 100 mls/hr Insulin Human Lispro (Humalog) 0 units SC ACHS [facility] PRN Reason: Protocol Last Admin: 07/01/17 06:53 Dose: 2 units Labetalol HCl (Trandate) 5 mg IVP Q6H PRN PRN Reason: Systolic Blood Pressure Levalbuterol HCl (Xopenex) 0.63 mg INH RQ8 PRN PRN Reason: Shortness of Breath Pantoprazole Sodium (Protonix Inj) 40 mg IVP DAILY [facility] Last Admin: 06/30/17 09:23 Dose: 40 mg Sodium Bicarbonate (Sodium Bicarbonate Tab) 1,300 mg PO Q8 [facility] Last Admin: 07/01/17 01:00 Dose: 1,300 mg Thiamine HCl (Vitamin B1 Tab) 100 mg PO BID [facility] Last Admin: 06/30/17 16:41 Dose: 100 mg - Labs Labs: 07/01/17 05:15 07/01/17 05:15 PT 14.7 Seconds (9.8-13.1) H 06/24/17 07:45 INR 1.3 (0.9-1.2) H 06/24/17 07:45 APTT 45.1 Seconds (25.6-37.1) H 06/22/17 20:33 - Constitutional Appears: In Acute Distress, Chronically Ill - Head Exam Head Exam: ATRAUMATIC, NORMOCEPHALIC - Eye Exam Eye Exam: PERRL - Neck Exam Neck Exam: Normal Inspection - Respiratory Exam Respiratory Exam: Decreased Breath Sounds Additional comments: b/l bibasal decreased breath sound, worse left side, mil better compared with yesterday. - Cardiovascular Exam Cardiovascular Exam: REGULAR RHYTHM, +S1, +S2 - GI/Abdominal Exam GI & Abdominal Exam: Soft, Normal Bowel Sounds. absent: Tenderness - Extremities Exam Extremities Exam: Pedal Edema (pedal edema left foot. B/L hand pedal edema 2+, scrotum edema) Additional comments: left hand dorsal surface skin tear aprox 3cm scab formation. - Back Exam Additional comments: sacral pressure ulcer 2cm x 2cm stage 2 - Neurological Exam Neurological Exam: Awake Neuro motor strength exam: Left Upper Extremity: 2/1 (hand), Right Upper Extremity: 2/1 (hand), Left Lower Extremity: 2/1 (foot), Right Lower Extremity: 2/1 (foot) - Skin Additional comments: left hand dorsal surface skin abrasion aprox 3cm x 1 cm.no erythema, no discharged, covered with bandage and abx cream Assessment and Plan - Assessment and Plan (Free Text) Plan: 66 yo M w/ pmh of htn, dm, CKD IIIB w/ 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, monoclonal gammopathy, recurrent L pleural effusion, admitted for sepsis, Hypothermia, CHINTAN on CKD 1) Acute Respiratory Failure secondary to worsening pleural effusion on nephrotic syndrome -Admitted ICU -s/p cardiac arrest 2 days ago with ROSC after 4 min and 2 rounds of epi -Intubated On venitilator day # 2 PRVC/AC FIO2 30 %, Peep 5, RR: 22 -ABG: PH 7.46 HCO3 22 metabolic alk -sputum and trach cx: yeast -f/u CXR, ABG 2) Recurrent Left Pleural effusion - S/P left thoracocentesis: Removed 1.2 L of straw colored fluid. F/u with cultures and cytology - has reaccumulated 06/29/17 2/2 warming fluids - CXR today showed mild improvement of pleural effusion while on lasix and still b/l infiltrates - IR consult suggested for thoracentesis after patient get off from ventilator - Transudate pleural fluid: Total serum Protein:5.5, Plerual fluid protein: 2, serum LDH: 689, Pleural fluid LDH: 323: Positive lights criteria -Pulmonology consult appreciated 3) HAP -recent admission before 06/22 -worsening of pleural effusions and new infiltrates. -c/w cefepime day # 6, linezolid day # 7 -f/u procalcitonin.last procalcitonin level normalized 2 days ago 4) Sepsis - SIRS (hypothermia,tachypnea, leukocytosis) and possible aspirative PNA after cardiac arrest - CXR: b/l lower lobe infiltrates and small pleural effusions - ID consult appreciated - C/W Maxapine day # 6 and Linozolid day # 7 -Procalcitonin normalized 2 days ago. f/u levels 5) Nephrotic Syndrome -secondary to DM nepropathy -Kidney biopsy 06/05/17: Diabetic nephropathy, nodular glomerulosclerosis, associated with aprox 40 % globally sclerosed glomeruli( calss III), 10-15 % segmentally sclerosed glomeruli, docal moderate interstitial fibrosis and mod vascular sclerosis, including marked hyaline arteriolosclerosis.NO EVIDENCE OF MONOCLONAL LIGHT OR HEAVY CHAIN-RELATED RENAL DISEASE. 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 -awaiting renal vein duplex to r/o thrombosis (rare complication of nephrotic syndrome) -F/U HIV test 6) CHINTAN on CKD stage 4 w/ new onset of ATN - Worsening of CKD from stage 3 to stage 4 secondary to CHINTAN - Kidney function has shown slight improvement. - Nephorologist consult appreciated: Advised to continue KEVIN inhibition and DM control. no HD for now -c/w oral bicarbonate, vit d, calcium acetate - F/U with morning CMP 7) Thrombocytopenia -may be secondary to bone marrow suppresion secondary to nephrotic syndrome. -PLt 119 -F/U CBC 8) Hypothyroidism -TSH 7, Ft4 0.7 -Econdrinologist consult suggested:Contacted [employer] office Dr Mann [phone] and was told that there is not aviation engineer coverage until 07/14/17 and patients needs to be seen by Hospitalist service. 9) Hyperprolactinemia -Pralactin level 95 -Endocrionologist consult suggested: as per above 10) Pressure Ulcer Sacral region stage 2 -wound care consult 11) Hypothermia -secondary to sepsis/hypothryroidism -on admission, 2 days ago and today(3 episosdes of hypothermia) -Marino esparza - Neuro consult appreciated: MRI suggested. last MRI 05/2017 no abnormality on thalamus 12) UTI ( Resolved) - on admission Initial Urine Culture: > 100,000 gram positive coci coagulase negative. Similar to previous admission - Repeat Urine Culture is negative for bacteria but now growing yeasts. - C/W Maxapine and Linozolid 13) Monoclonal Gammopathy -Bone marrow biopsy 05/05/17 hypocellular bone marrow with scattered plasma cells. no evidence of overt or advanced myelodysplasia, acute leukemia, met neoplasm or lymphoma. - Hemo-Onc consult suggested: no multiple myeloma 14) Acute diastolic CHF secondary to pulmonary edema and fluid overload -ProBNP 3500 -Echo 05/31/17 normal EF 60-65% - c/w lasix as per nephro 15) DM 2 -home meds hold -SSI -Hga1c 7.2 04/2017 16) HTN - Hydralazine 50 Q8 - Amlodipine 10 mg daily 17) Anemia -secondary to CKD - HB: 8.5 - C/W procrit 18) DVT prophylaxis -Lovenox 30 mg sc (renal dose Cr CL 18)
[2017-07-01] MEDS: Albuterol-Ipratrop 3 mg / 0.5 (3 ml) UD INH SCH ×4 (08:24→19:12)
[2017-07-01] MEDS: Enoxaparin 30 mg Syringe SC SCH (08:59)
[2017-07-01] MEDS: Bacitracin OINT 15GM TOP SCH ×3 (09:00→17:36)
[2017-07-01] MEDS: Ergocalciferol 50,000 Intl Units Cap PO SCH (09:01)
[2017-07-01] MEDS: Cefepime 1 GM in Sodium Chloride 0.9% 100 ML IVPB SCH (09:02)
--- NOTE | 2017-07-01 09:02 | CP.PCM.PN ---
Subjective - Date & Time of Evaluation Date of Evaluation: 07/01/17 Time of Evaluation: 09:02 - Subjective Subjective: STILL INTUBATED AND BEING VENTILATED AWAKE AND ALERT Objective - Vital Signs/Intake and Output Vital Signs (last 24 hours): Temp Pulse Resp BP Pulse Ox 93.4 F L 61 24 158/72 H 100 07/01/17 08:00 07/01/17 08:00 07/01/17 08:00 07/01/17 08:00 07/01/17 08:00 Intake and Output: 07/01/17 07/01/17 06:59 18:59 Intake Total 630 40 Output Total 800 Balance -170 40 - Medications Medications: Current Medications Albuterol/Ipratropium (Duoneb 3 Mg/0.5 Mg (3 Ml) Ud) 3 ml INH RQID [facility] Last Admin: 07/01/17 08:24 Dose: 3 ml Amlodipine Besylate (Norvasc) 10 mg PO DAILY [facility] Last Admin: 06/30/17 09:23 Dose: 10 mg Bacitracin (Bacitracin Oint) 1 applic TOP TID [facility] Last Admin: 06/30/17 16:38 Dose: 1 applic Calcium Acetate (Phoslo) 2,001 mg PO WM [facility] Last Admin: 06/30/17 18:33 Dose: 2,001 mg Dextrose (Dextrose 50% Inj) 0 ml IV STAT PRN; Protocol PRN Reason: Hypoglycemia Protocol Dextrose (Glutose 15) 0 gm PO ONCE PRN; Protocol PRN Reason: Hypoglycemia Protocol Enoxaparin Sodium (Lovenox) 30 mg SC DAILY [facility] PRN Reason: Protocol Last Admin: 06/30/17 09:21 Dose: 30 mg Epoetin Roel (Procrit) 10,000 unit SC MWF [facility] Last Admin: 06/30/17 09:37 Dose: 10,000 unit Ergocalciferol (Drisdol 50,000 Intl Units Cap) 1 cap PO Q7D [facility] Furosemide (Lasix) 80 mg IV Q8 [facility] Last Admin: 07/01/17 00:17 Dose: 80 mg Glucagon (Glucagen Diagnostic Kit) 0 mg IM STAT PRN; Protocol PRN Reason: Hypoglycemia Protocol Haloperidol Lactate (Haldol) 0.5 mg IM Q6 PRN PRN Reason: Agitation Last Admin: 06/25/17 14:35 Dose: 0.5 mg Hydralazine HCl (Apresoline) 50 mg PO Q8 [facility] Last Admin: 07/01/17 01:53 Dose: 50 mg Linezolid (Zyvox 600mg/300ml D5w) 600 mg in 300 mls @ 300 mls/hr IVPB Q12 [facility] PRN Reason: Protocol Last Admin: 06/30/17 20:37 Dose: 300 mls/hr Cefepime HCl 1 gm/ Sodium (Chloride) 100 mls @ 100 mls/hr IVPB DAILY [facility] PRN Reason: Protocol Last Admin: 06/30/17 09:23 Dose: 100 mls/hr Insulin Human Lispro (Humalog) 0 units SC ACHS [facility] PRN Reason: Protocol Last Admin: 07/01/17 06:53 Dose: 2 units Labetalol HCl (Trandate) 5 mg IVP Q6H PRN PRN Reason: Systolic Blood Pressure Levalbuterol HCl (Xopenex) 0.63 mg INH RQ8 PRN PRN Reason: Shortness of Breath Pantoprazole Sodium (Protonix Inj) 40 mg IVP DAILY [facility] Last Admin: 06/30/17 09:23 Dose: 40 mg Sodium Bicarbonate (Sodium Bicarbonate Tab) 1,300 mg PO Q8 [facility] Last Admin: 07/01/17 01:00 Dose: 1,300 mg Thiamine HCl (Vitamin B1 Tab) 100 mg PO BID [facility] Last Admin: 06/30/17 16:41 Dose: 100 mg - Labs Labs: 07/01/17 05:15 07/01/17 05:15 PT 14.7 Seconds (9.8-13.1) H 06/24/17 07:45 INR 1.3 (0.9-1.2) H 06/24/17 07:45 APTT 45.1 Seconds (25.6-37.1) H 06/22/17 20:33 - Constitutional Appears: Chronically Ill - Head Exam Head Exam: ATRAUMATIC, NORMAL INSPECTION, NORMOCEPHALIC - Eye Exam Eye Exam: EOMI, Normal appearance, PERRL Pupil Exam: NORMAL ACCOMODATION, PERRL - ENT Exam ENT Exam: Mucous Membranes Moist, Normal Exam - Neck Exam Neck Exam: Full ROM, Normal Inspection. absent: Lymphadenopathy - Respiratory Exam Respiratory Exam: Rales Additional comments: ON THE VENT - Cardiovascular Exam Cardiovascular Exam: REGULAR RHYTHM, +S1, +S2. absent: Murmur - GI/Abdominal Exam GI & Abdominal Exam: Soft, Normal Bowel Sounds. absent: Tenderness - Rectal Exam Rectal Exam: NORMAL INSPECTION - Extremities Exam Extremities Exam: Full ROM, Normal Capillary Refill, Normal Inspection. absent : Joint Swelling, Pedal Edema - Back Exam Back Exam: NORMAL INSPECTION - Neurological Exam Neurological Exam: Alert, Awake, CN II-XII Intact, Normal Gait, Oriented x3 - Psychiatric Exam Psychiatric exam: Normal Affect, Normal Mood - Skin Skin Exam: Dry, Intact, Normal Color, Warm Assessment and Plan - Assessment and Plan (Free Text) Assessment: S/P CPR PLEURAL EFFUSION Plan: CONTINUE RX ORDERED CONTINUE ATTEMPTS TO EXTUBATE
[2017-07-01] MEDS: Linezolid 600 mg in D5W 300 ml 600 MG/300 ML BAG IVPB SCH ×2 (09:33→21:47)
--- NOTE | 2017-07-01 09:57 | RAD ---
PROCEDURE: CHEST RADIOGRAPH, 1 VIEW HISTORY: pt intubated COMPARISON: 06/30/2017 FINDINGS: LUNGS: Bibasilar dense opacities. Left base obscured by moderate pleural effusion. No evidence of right pleural effusion. No pneumothorax. PLEURA: As above. CARDIOVASCULAR: Normal heart size. ET tube and NG tube unchanged. OSSEOUS STRUCTURES: No significant abnormalities. VISUALIZED UPPER ABDOMEN: Normal. OTHER FINDINGS: None. IMPRESSION: Moderate left pleural effusion. Bibasilar opacities. No significant interval change.
--- NOTE | 2017-07-01 11:13 | US ---
PROCEDURE: Ultrasonography renal arterial evaluation HISTORY: rule out renal vein thrombosis COMPARISON: 03/11/2017 TECHNIQUE: Real-time ultrasonography evaluation of the renal arteries were performed. Comparison is made to the aorta. Report prepared by cytogenetic technologist. FINDINGS: RIGHT KIDNEY: Measures: 4.8 x 11.3 cm. AORTA: Patent. Peak systolic velocity 66.0 cm centimeters/second RIGHT RENAL ARTERY: Renal artery to aorta ratio: 1.7 cm * Proximal segment: Patent. Peak systolic velocity 104.6 centimeters/second * Mid segment: Patent. Peak systolic velocity 88.8 centimeters/second * Distal segment: Patent. Peak systolic velocity 73.0 centimeters/second Other findings: Right Kidney measures approximately 4.1 x 11.3 centimeters. Patent right renal vein LEFT RENAL ARTERY: Renal artery to aorta ratio: 2.5 * Proximal segment: Patent. Peak systolic velocity 88.7 centimeters/second * Mid segment: Patent. Peak systolic velocity 166.0 centimeters/second * Distal segment: Patent. Peak systolic velocity 150.9 centimeters/second Other findings: Left Kidney measures approximately 5.4 x 11.2 centimeters. Patent left renal vein IMPRESSION: Limited evaluation. No definite hemodynamically significant stenosis involving the renal arteries as visualized. (Please note that the proximal left peroneal artery was not visualized. Patent renal veins bilaterally. Concordant results (preliminary interpretation) provided by [employer]. Procedure Completed: 12:03 Preliminary (vRad) Report: Dictated and Authenticated: 15:44 30 June 2017. Final Interpretation: 11:11. Harriett .
--- NOTE | 2017-07-01 11:16 | CP.CCUPN ---
<Lori Magana - Last Filed: 07/01/17 12:40> CCU Subjective - Physician Review Subjective (Free Text): 07/01/17 11:06 66 year old male with PMH of HTN, CKD, nephrotic syndrome, chronic left sided pleural effusion admitted for hypothermia, AMS with acute hypercapneic respiratory failure on 06/22. On 06/29 patients respiratory status began to deteriorate. Same day, patient had cardiac arrest with ROSC after 4 minutes and 2 doses of epi and subsequent intubation during code. This morning the patient remains intubated without sedation, alert and following commands. Noted drop in temperature to 93.4 F this AM. Leukocytosis is improving, anemia stable. Pt has hyperprolactinemia, hypothyroidism, etiology is unknown. Cultures + yeast (sputum/urine). Will attempt to wean of ventilator. Case D/W primary team: for possible thoracentesis. CCU Objective - Vital Signs / Intake & Output Vital Signs (Last 4 hours): Vital Signs Temp Pulse Resp BP Pulse Ox 07/01/17 11:00 58 L 16 147/62 100 07/01/17 10:52 157/64 H 07/01/17 10:00 57 L 16 157/64 H 100 07/01/17 09:13 62 158/72 H 07/01/17 09:00 62 158/72 H 07/01/17 08:00 93.4 F L 61 24 158/72 H 100 Intake and Output (Last 8hrs): Intake & Output 06/30/17 07/01/17 07/01/17 22:59 06:59 14:59 Intake Total 370 270 520 Output Total 750 800 Balance -380 -530 520 Weight 69.4 kg Intake: IV 0 Intake, Piggyback 300 400 Tube Feeding 70 270 120 Output: Urine 750 800 Urethral (Eden) 750 800 Other: # Bowel Movements 1 - Physical Exam Head: Positive for: Atraumatic, Normocephalic Pupils: Positive for: PERRL Respiratory/Chest: Positive for: Good Air Exchange, Decreased Breath Sounds ( bilateral lung bases). Negative for: Retracting, Rhonchi Cardiovascular: Positive for: Regular Rate and Rhythm, Murmurs. Negative for: Tachycardic, Bradycardic Abdomen: Positive for: Normal Bowel Sounds. Negative for: Tenderness, Distention, Peritoneal Signs Genitourinary Male: Positive for: Penile Swelling, Testicle Swelling Upper Extremity: Positive for: Edema (bilaterallly, 2+ pitting. strength 2/5) Lower Extremity: Positive for: Normal Inspection, Other (strength 1/5). Negative for: CALF TENDERNESS, Tenderness, Erythema Neurological: Positive for: Other (awake and alert, intubated, following commands) - Medications Active Medications: Active Medications Generic Name Dose Route Start Last Admin Trade Name Freq PRN Reason Stop Dose Admin Albuterol/Ipratropium 3 ml 06/28/17 16:00 07/01/17 08:24 Duoneb 3 Mg/0.5 Mg (3 Ml) Ud INH 3 ml RQID THOMAS Administration Amlodipine Besylate 10 mg 06/26/17 09:00 07/01/17 09:13 Norvasc PO 10 mg DAILY THOMAS Administration Bacitracin 1 applic 06/27/17 13:00 07/01/17 09:00 Bacitracin Oint TOP 1 applic TID THOMAS Administration Calcium Acetate 2,001 mg 06/24/17 18:30 07/01/17 09:01 Phoslo PO 2,001 mg WM THOMAS Administration Dextrose 0 ml 06/22/17 22:36 Dextrose 50% Inj IV STAT PRN Hypoglycemia Protocol Protocol Dextrose 0 gm 06/22/17 22:36 Glutose 15 PO ONCE PRN Hypoglycemia Protocol Protocol Enoxaparin Sodium 30 mg 06/23/17 10:30 07/01/17 08:59 Lovenox SC 30 mg DAILY THOMAS Administration Protocol Epoetin Roel 10,000 unit 06/23/17 13:00 06/30/17 09:37 Procrit SC 10,000 unit MWF THOMAS Administration Ergocalciferol 1 cap 06/24/17 10:00 07/01/17 09:01 Drisdol 50,000 Intl Units Cap PO 1 cap Q7D THOMAS Administration Furosemide 80 mg 06/29/17 11:00 07/01/17 10:52 Lasix IV 80 mg Q8 THOMAS Administration Glucagon 0 mg 06/22/17 22:36 Glucagen Diagnostic Kit IM STAT PRN Hypoglycemia Protocol Protocol Haloperidol Lactate 0.5 mg 06/25/17 14:45 06/25/17 14:35 Haldol IM 0.5 mg Q6 PRN Administration Agitation Hydralazine HCl 50 mg 06/26/17 19:30 07/01/17 09:00 Apresoline PO 50 mg Q8 THOMAS Administration Linezolid 600 mg in 300 mls @ 300 mls/hr 06/25/17 21:00 07/01/17 09:33 Zyvox 600mg/300ml D5w IVPB 300 mls/hr Q12 THOAMS Administration Protocol Cefepime HCl 1 gm/ Sodium 100 mls @ 100 mls/hr 06/26/17 09:00 07/01/17 09:02 Chloride IVPB 100 mls/hr DAILY THOMAS Administration Protocol Insulin Human Lispro 0 units 06/23/17 07:30 07/01/17 06:53 Humalog SC 2 units ACHS THOMAS Administration Protocol Labetalol HCl 5 mg 06/30/17 15:44 Trandate IVP Q6H PRN Systolic Blood Pressure Levalbuterol HCl 0.63 mg 06/27/17 07:56 Xopenex INH RQ8 PRN Shortness of Breath Pantoprazole Sodium 40 mg 06/23/17 09:00 07/01/17 08:59 Protonix Inj IVP 40 mg DAILY THOMAS Administration Sodium Bicarbonate 1,300 mg 06/30/17 17:00 07/01/17 09:02 Sodium Bicarbonate Tab PO 1,300 mg Q8 THOMAS Administration Thiamine HCl 100 mg 06/24/17 21:30 07/01/17 09:02 Vitamin B1 Tab PO 100 mg BID THOMAS Administration - Patient Studies Lab Studies: Microbiology Studies 06/28/17 18:27 Gram Stain - Final Sputum Sputum Culture - Final Yeast Species 06/29/17 15:38 Urine Culture - Final Urine,Eden Yeast Species 06/29/17 17:43 MRSA Culture (Admit) - Final Naris MRSA NOT DETECTED 06/29/17 08:29 Gram Stain - Final Trachasp 06/25/17 16:51 Anaerobic Culture - Final Pleural Fluid NO ANAEROBES ISOLATED. 06/25/17 16:51 Gram Stain - Final Body Fluid - Pleural Fluid Body Fluid Culture - Preliminary NO GROWTH AFTER 2 DAYS 06/28/17 11:05 Blood Culture - Preliminary Blood NO GROWTH AFTER 48 HOURS Lab Studies 07/01/17 07/01/17 07/01/17 Range/Units 06:28 05:15 05:15 WBC (4.8-10.8) K/uL RBC (4.40-5.90) Mil/uL Hgb (12.0-18.0) g/dL Hct (35.0-51.0) % MCV (80.0-94.0) fl MCH (27.0-31.0) pg MCHC (33.0-37.0) g/dL RDW (11.5-14.5) % Plt Count (130-400) K/uL MPV (7.2-11.7) fl Neut % (Auto) (50.0-75.0) % Lymph % (Auto) (20.0-40.0) % Casey % (Auto) (0.0-10.0) % Eos % (Auto) (0.0-4.0) % Baso % (Auto) (0.0-2.0) % Neut # (1.8-7.0) K/uL Lymph # (1.0-4.3) K/uL Casey # (0.0-0.8) K/uL Eos # (0.0-0.7) K/uL Baso # (0.0-0.2) K/uL pCO2 (35-45) mm/Hg pO2 (80-100) mm/Hg HCO3 (21-28) mmol/L ABG pH (7.35-7.45) ABG Total CO2 (22-28) mmol/L ABG O2 Saturation (95-98) % ABG O2 Content (15-23) ML/dL ABG Base Excess (-2.0-3.0) mmol/L ABG Hemoglobin (11.7-17.4) g/dL ABG Carboxyhemoglobin (0.5-1.5) % POC ABG HHb (Measured) (0.0-5.0) % ABG Methemoglobin (0.0-3.0) % ABG O2 Capacity (16-24) mL/dL Andry Test ABG Potassium (3.6-5.2) mmol/L A-a O2 Difference mm/Hg Hgb O2 Saturation (95.0-98.0) % Sodium 142 (132-148) mmol/L Chloride 113 H (98-107) mmol/L Glucose (75-110) mg/dL Lactate (0.7-2.1) mmol/L Vent Mode Mechanical Rate FiO2 % Tidal Volume PEEP Potassium 3.6 (3.6-5.0) MMOL/L Carbon Dioxide 20 L (22-30) mmol/L Anion Gap 13 (10-20) BUN 81 H (9-20) mg/dl Creatinine 4.1 H (0.8-1.5) mg/dl Est GFR ( Amer) 18 Est GFR (Non-Af Amer) 15 POC Glucose (mg/dL) 181 H (65-110) mg/dL Random Glucose 190 H (75-110) mg/dL Lactic Acid 0.8 (0.7-2.1) MMOL/L Calcium 8.5 (8.4-10.2) mg/dL Phosphorus 7.8 H (2.5-4.5) mg/dl Magnesium 2.5 H (1.6-2.3) MG/DL Total Bilirubin 0.3 (0.2-1.3) mg/dl AST 43 (17-59) U/L ALT 69 (21-72) U/L Alkaline Phosphatase 233 H (38-126) U/L Total Protein 5.6 L (6.3-8.2) G/DL Albumin 2.7 L (3.5-5.0) g/dL Globulin 2.9 (2.2-3.9) gm/dL Albumin/Globulin Ratio 0.9 L (1.0-2.1) Arterial Blood Potassium (3.6-5.2) mmol/L 07/01/17 07/01/17 06/30/17 Range/Units 05:15 04:51 21:48 WBC 11.8 H (4.8-10.8) K/uL RBC 2.67 L (4.40-5.90) Mil/uL Hgb 8.5 L (12.0-18.0) g/dL Hct 24.8 L (35.0-51.0) % MCV 92.8 D (80.0-94.0) fl MCH 31.9 H (27.0-31.0) pg MCHC 34.4 (33.0-37.0) g/dL RDW 17.2 H (11.5-14.5) % Plt Count 108 L (130-400) K/uL MPV 10.0 (7.2-11.7) fl Neut % (Auto) 92.8 H (50.0-75.0) % Lymph % (Auto) 4.0 L (20.0-40.0) % Casey % (Auto) 2.4 (0.0-10.0) % Eos % (Auto) 0.5 (0.0-4.0) % Baso % (Auto) 0.3 (0.0-2.0) % Neut # 10.9 H (1.8-7.0) K/uL Lymph # 0.5 L (1.0-4.3) K/uL Casey # 0.3 (0.0-0.8) K/uL Eos # 0.1 (0.0-0.7) K/uL Baso # 0.0 (0.0-0.2) K/uL pCO2 29 L (35-45) mm/Hg pO2 110 H (80-100) mm/Hg HCO3 22.8 (21-28) mmol/L ABG pH 7.46 H (7.35-7.45) ABG Total CO2 21.5 L (22-28) mmol/L ABG O2 Saturation 99.4 H (95-98) % ABG O2 Content 11.2 L (15-23) ML/dL ABG Base Excess -2.7 L (-2.0-3.0) mmol/L ABG Hemoglobin 8.1 L (11.7-17.4) g/dL ABG Carboxyhemoglobin 1.3 (0.5-1.5) % POC ABG HHb (Measured) 0.6 (0.0-5.0) % ABG Methemoglobin 1.2 (0.0-3.0) % ABG O2 Capacity 11.3 L (16-24) mL/dL Andry Test Yes ABG Potassium (3.6-5.2) mmol/L A-a O2 Difference 68.0 mm/Hg Hgb O2 Saturation 96.8 (95.0-98.0) % Sodium (132-148) mmol/L Chloride (98-107) mmol/L Glucose (75-110) mg/dL Lactate (0.7-2.1) mmol/L Vent Mode A/c Mechanical Rate 22 FiO2 30.0 % Tidal Volume 500 PEEP 5 Potassium (3.6-5.0) MMOL/L Carbon Dioxide (22-30) mmol/L Anion Gap (10-20) BUN (9-20) mg/dl Creatinine (0.8-1.5) mg/dl Est GFR ( Amer) Est GFR (Non-Af Amer) POC Glucose (mg/dL) 126 H (65-110) mg/dL Random Glucose (75-110) mg/dL Lactic Acid (0.7-2.1) MMOL/L Calcium (8.4-10.2) mg/dL Phosphorus (2.5-4.5) mg/dl Magnesium (1.6-2.3) MG/DL Total Bilirubin (0.2-1.3) mg/dl AST (17-59) U/L ALT (21-72) U/L Alkaline Phosphatase (38-126) U/L Total Protein (6.3-8.2) G/DL Albumin (3.5-5.0) g/dL Globulin (2.2-3.9) gm/dL Albumin/Globulin Ratio (1.0-2.1) Arterial Blood Potassium (3.6-5.2) mmol/L 06/30/17 06/30/17 Range/Units 13:00 11:46 WBC (4.8-10.8) K/uL RBC (4.40-5.90) Mil/uL Hgb (12.0-18.0) g/dL Hct (35.0-51.0) % MCV (80.0-94.0) fl MCH (27.0-31.0) pg MCHC (33.0-37.0) g/dL RDW (11.5-14.5) % Plt Count (130-400) K/uL MPV (7.2-11.7) fl Neut % (Auto) (50.0-75.0) % Lymph % (Auto) (20.0-40.0) % Casey % (Auto) (0.0-10.0) % Eos % (Auto) (0.0-4.0) % Baso % (Auto) (0.0-2.0) % Neut # (1.8-7.0) K/uL Lymph # (1.0-4.3) K/uL Casey # (0.0-0.8) K/uL Eos # (0.0-0.7) K/uL Baso # (0.0-0.2) K/uL pCO2 31 L (35-45) mm/Hg pO2 161 H (80-100) mm/Hg HCO3 21.5 (21-28) mmol/L ABG pH 7.41 (7.35-7.45) ABG Total CO2 20.6 L (22-28) mmol/L ABG O2 Saturation 99.4 H (95-98) % ABG O2 Content (15-23) ML/dL ABG Base Excess -4.4 L (-2.0-3.0) mmol/L ABG Hemoglobin (11.7-17.4) g/dL ABG Carboxyhemoglobin (0.5-1.5) % POC ABG HHb (Measured) (0.0-5.0) % ABG Methemoglobin (0.0-3.0) % ABG O2 Capacity (16-24) mL/dL Andry Test Yes ABG Potassium 3.7 (3.6-5.2) mmol/L A-a O2 Difference 85.0 mm/Hg Hgb O2 Saturation (95.0-98.0) % Sodium 143.0 (132-148) mmol/L Chloride 118.0 H (98-107) mmol/L Glucose 171 H (75-110) mg/dL Lactate 1.1 (0.7-2.1) mmol/L Vent Mode A/c Mechanical Rate 22 FiO2 40.0 % Tidal Volume 500 PEEP 5 Potassium (3.6-5.0) MMOL/L Carbon Dioxide (22-30) mmol/L Anion Gap (10-20) BUN (9-20) mg/dl Creatinine (0.8-1.5) mg/dl Est GFR ( Amer) Est GFR (Non-Af Amer) POC Glucose (mg/dL) 201 H (65-110) mg/dL Random Glucose (75-110) mg/dL Lactic Acid (0.7-2.1) MMOL/L Calcium (8.4-10.2) mg/dL Phosphorus (2.5-4.5) mg/dl Magnesium (1.6-2.3) MG/DL Total Bilirubin (0.2-1.3) mg/dl AST (17-59) U/L ALT (21-72) U/L Alkaline Phosphatase (38-126) U/L Total Protein (6.3-8.2) G/DL Albumin (3.5-5.0) g/dL Globulin (2.2-3.9) gm/dL Albumin/Globulin Ratio (1.0-2.1) Arterial Blood Potassium 3.7 (3.6-5.2) mmol/L Laboratory Results - last 24 hr 06/30/17 06/30/17 06/30/17 11:46 13:00 21:48 WBC RBC Hgb Hct MCV MCH MCHC RDW Plt Count MPV Neut % (Auto) Lymph % (Auto) Casey % (Auto) Eos % (Auto) Baso % (Auto) Neut # Lymph # Casey # Eos # Baso # pCO2 31 L pO2 161 H HCO3 21.5 ABG pH 7.41 ABG Total CO2 20.6 L ABG O2 Saturation 99.4 H ABG O2 Content ABG Base Excess -4.4 L ABG Hemoglobin ABG Carboxyhemoglobin POC ABG HHb (Measured) ABG Methemoglobin ABG O2 Capacity Andry Test Yes ABG Potassium 3.7 A-a O2 Difference 85.0 Hgb O2 Saturation Sodium 143.0 Chloride 118.0 H Glucose 171 H Lactate 1.1 Vent Mode A/c Mechanical Rate 22 FiO2 40.0 Tidal Volume 500 PEEP 5 Potassium Carbon Dioxide Anion Gap BUN Creatinine Est GFR ( Amer) Est GFR (Non-Af Amer) POC Glucose (mg/dL) 201 H 126 H Random Glucose Lactic Acid Calcium Phosphorus Magnesium Total Bilirubin AST ALT Alkaline Phosphatase Total Protein Albumin Globulin Albumin/Globulin Ratio Arterial Blood Potassium 3.7 07/01/17 07/01/17 07/01/17 04:51 05:15 05:15 WBC 11.8 H RBC 2.67 L Hgb 8.5 L Hct 24.8 L MCV 92.8 D MCH 31.9 H MCHC 34.4 RDW 17.2 H Plt Count 108 L MPV 10.0 Neut % (Auto) 92.8 H Lymph % (Auto) 4.0 L Casey % (Auto) 2.4 Eos % (Auto) 0.5 Baso % (Auto) 0.3 Neut # 10.9 H Lymph # 0.5 L Casey # 0.3 Eos # 0.1 Baso # 0.0 pCO2 29 L pO2 110 H HCO3 22.8 ABG pH 7.46 H ABG Total CO2 21.5 L ABG O2 Saturation 99.4 H ABG O2 Content 11.2 L ABG Base Excess -2.7 L ABG Hemoglobin 8.1 L ABG Carboxyhemoglobin 1.3 POC ABG HHb (Measured) 0.6 ABG Methemoglobin 1.2 ABG O2 Capacity 11.3 L Andry Test Yes ABG Potassium A-a O2 Difference 68.0 Hgb O2 Saturation 96.8 Sodium 142 Chloride 113 H Glucose Lactate Vent Mode A/c Mechanical Rate 22 FiO2 30.0 Tidal Volume 500 PEEP 5 Potassium 3.6 Carbon Dioxide 20 L Anion Gap 13 BUN 81 H Creatinine 4.1 H Est GFR ( Amer) 18 Est GFR (Non-Af Amer) 15 POC Glucose (mg/dL) Random Glucose 190 H Lactic Acid Calcium 8.5 Phosphorus 7.8 H Magnesium 2.5 H Total Bilirubin 0.3 AST 43 ALT 69 Alkaline Phosphatase 233 H Total Protein 5.6 L Albumin 2.7 L Globulin 2.9 Albumin/Globulin Ratio 0.9 L Arterial Blood Potassium 07/01/17 07/01/17 05:15 06:28 WBC RBC Hgb Hct MCV MCH MCHC RDW Plt Count MPV Neut % (Auto) Lymph % (Auto) Casey % (Auto) Eos % (Auto) Baso % (Auto) Neut # Lymph # Casey # Eos # Baso # pCO2 pO2 HCO3 ABG pH ABG Total CO2 ABG O2 Saturation ABG O2 Content ABG Base Excess ABG Hemoglobin ABG Carboxyhemoglobin POC ABG HHb (Measured) ABG Methemoglobin ABG O2 Capacity Andry Test ABG Potassium A-a O2 Difference Hgb O2 Saturation Sodium Chloride Glucose Lactate Vent Mode Mechanical Rate FiO2 Tidal Volume PEEP Potassium Carbon Dioxide Anion Gap BUN Creatinine Est GFR ( Amer) Est GFR (Non-Af Amer) POC Glucose (mg/dL) 181 H Random Glucose Lactic Acid 0.8 Calcium Phosphorus Magnesium Total Bilirubin AST ALT Alkaline Phosphatase Total Protein Albumin Globulin Albumin/Globulin Ratio Arterial Blood Potassium Fingerstick Blood Sugar Results: 181 Review of Systems - Review of Systems Systems not reviewed;Unavailable: Intubated Critical Care Progress Note - Ventilator Checklist Head of Bed 30 Degrees: Yes Daily Assessment of Readiness to Wean: Yes PUD Prophalyxis: Yes DVT Prophylaxis: Yes - Vent Settings MODE:: ASSIST CONTROL TIDAL VOLUME:: 500 RESP RATE:: 16 FIO2:: 30 PEEP:: 5 - Extremities/Vascular Does the Patient have a Central Venous Catheter?: No Does the Patient need a Eden Catheter?: Yes Catheter Insertion Criteria: Need for accurate measurement of output in critically ill patient - Restraints Justification for Restraints: High risk for self extubation - Prophylaxis GI Prophylaxis GI: PPI - Prophylaxis DVT Prophylaxis DVT: Lovenox - Nutrition Nutrition: Nutrition: tube feeds via OG tube at 40cc/hr Category Date Time Status NPO Diet [DIET] Diets 06/30/17 Dinner Active Assessment/Plan - Assessment and Plan (Free Text) Assessment: 66 year old male with PMH of HTN, CKD, nephrotic syndrome, chronic left sided pleural effusion admitted for hypothermia, AMS with acute hypercapneic respiratory failure on 06/22. Subsequently developed acute hypoxic respiratory failure, cardiac arrest required intubation on 06/29/17. #Acute Hypoxic Respiratory failure #CKD with nephrotic syndrome #Pleural Effusion #Anasarca #Thrombocytopenia, acute #Anemia, chronic #Prophylaxis DVT/GI Neuro: intubated, awake, following commands, generalized weakness. No sedation. EEG today. MRI ordered. Cardiovascular: Echo in May: EF 60-65%, s/p cardiac arrest. Hemodynamically stable, c/w hydralazine and amlodipine. Pulm: Day 2 of mechanical ventilation, ABG this AM: ABG: PH 7.46, CO2 29, HCO2 22.8, O2: 99.4 Vent settings: PRVC/AC: PEEP 5, RR 16, FIO2 30%, will attempt to wean off vent today. Chronic left pleural effusion, right sided pleural effusion/infiltrate improved. Continue with diuresis (lasix 80mg q8), duonebs and iv antibotics. Attempt to wean of vent today. GI: prophylaxis with pantoprazole, tube feeds via OG tube @40cc/hr : Eden in place, yellow urine small amount in eden bag, Ins/Outs reviewed. Renal function is stable. continue to monitor urine output. Endocrine: DM: sliding scale. Found to have Hyperprolactinemia, Hypothyroidism. Etiology unknown. Will d/w primary team. Heme: Leukocytosis likely 2' to infection, Anemia is chronic and likely 2' to renal disease, Thrombocytopenia is new- Infectious Disease: Leukocytosis improving. Temp 93.4F. Peggy esparza placed on pt. Maxipime/Zyvox. Cultures: Trach asp: Yeast+, Urine: yeast +, Sputum: yeast+ . await recs from ID Patient seen and examined with Dr. Ellis. Case discussed with Dr. Ellis. <Hakan Ellis M - Last Filed: 07/01/17 12:42> CCU Objective - Vital Signs / Intake & Output Vital Signs (Last 4 hours): Vital Signs Temp Pulse Resp BP Pulse Ox 07/01/17 12:00 97.4 F L 62 15 151/73 H 100 07/01/17 11:00 58 L 16 147/62 100 07/01/17 10:52 157/64 H 07/01/17 10:00 57 L 16 157/64 H 100 07/01/17 09:13 62 158/72 H 07/01/17 09:00 62 158/72 H Intake and Output (Last 8hrs): Intake & Output 06/30/17 07/01/17 07/01/17 22:59 06:59 14:59 Intake Total 370 270 520 Output Total 750 800 Balance -380 -530 520 Weight 153 lb Intake: IV 0 Intake, Piggyback 300 400 Tube Feeding 70 270 120 Output: Urine 750 800 Urethral (Eden) 750 800 Other: # Bowel Movements 1 - Medications Active Medications: Active Medications Generic Name Dose Route Start Last Admin Trade Name Freq PRN Reason Stop Dose Admin Albuterol/Ipratropium 3 ml 06/28/17 16:00 07/01/17 11:44 Duoneb 3 Mg/0.5 Mg (3 Ml) Ud INH 3 ml RQID THOMAS Administration Amlodipine Besylate 10 mg 06/26/17 09:00 07/01/17 09:13 Norvasc PO 10 mg DAILY THOMAS Administration Bacitracin 1 applic 06/27/17 13:00 07/01/17 12:05 Bacitracin Oint TOP 1 applic TID THOMAS Administration Calcium Acetate 2,001 mg 06/24/17 18:30 07/01/17 12:04 Phoslo PO 2,001 mg WM THOMAS Administration Dextrose 0 ml 06/22/17 22:36 Dextrose 50% Inj IV STAT PRN Hypoglycemia Protocol Protocol Dextrose 0 gm 06/22/17 22:36 Glutose 15 PO ONCE PRN Hypoglycemia Protocol Protocol Enoxaparin Sodium 30 mg 06/23/17 10:30 07/01/17 08:59 Lovenox SC 30 mg DAILY THOMAS Administration Protocol Epoetin Roel 10,000 unit 06/23/17 13:00 06/30/17 09:37 Procrit SC 10,000 unit MWF THOMAS Administration Ergocalciferol 1 cap 06/24/17 10:00 07/01/17 09:01 Drisdol 50,000 Intl Units Cap PO 1 cap Q7D THOMAS Administration Furosemide 80 mg 06/29/17 11:00 07/01/17 10:52 Lasix IV 80 mg Q8 THOMAS Administration Glucagon 0 mg 06/22/17 22:36 Glucagen Diagnostic Kit IM STAT PRN Hypoglycemia Protocol Protocol Haloperidol Lactate 0.5 mg 06/25/17 14:45 06/25/17 14:35 Haldol IM 0.5 mg Q6 PRN Administration Agitation Hydralazine HCl 50 mg 06/26/17 19:30 07/01/17 09:00 Apresoline PO 50 mg Q8 THOMAS Administration Linezolid 600 mg in 300 mls @ 300 mls/hr 06/25/17 21:00 07/01/17 09:33 Zyvox 600mg/300ml D5w IVPB 300 mls/hr Q12 THOMAS Administration Protocol Cefepime HCl 1 gm/ Sodium 100 mls @ 100 mls/hr 06/26/17 09:00 07/01/17 09:02 Chloride IVPB 100 mls/hr DAILY THOMAS Administration Protocol Insulin Human Lispro 0 units 06/23/17 07:30 07/01/17 12:01 Humalog SC 4 units ACHS THOMAS Administration Protocol Labetalol HCl 5 mg 06/30/17 15:44 Trandate IVP Q6H PRN Systolic Blood Pressure Levalbuterol HCl 0.63 mg 06/27/17 07:56 Xopenex INH RQ8 PRN Shortness of Breath Pantoprazole Sodium 40 mg 06/23/17 09:00 07/01/17 08:59 Protonix Inj IVP 40 mg DAILY THOMAS Administration Sodium Bicarbonate 1,300 mg 06/30/17 17:00 07/01/17 09:02 Sodium Bicarbonate Tab PO 1,300 mg Q8 THOMAS Administration Thiamine HCl 100 mg 06/24/17 21:30 07/01/17 09:02 Vitamin B1 Tab PO 100 mg BID THOMAS Administration - Patient Studies Lab Studies: Microbiology Studies 06/29/17 08:29 Gram Stain - Final Trachasp Sputum Culture - Preliminary Yeast Species 06/25/17 16:51 Gram Stain - Final Body Fluid - Pleural Fluid Body Fluid Culture - Preliminary NO GROWTH AFTER 3 DAYS 06/28/17 11:05 Blood Culture - Preliminary Blood NO GROWTH AFTER 3 DAYS 06/28/17 18:27 Gram Stain - Final Sputum Sputum Culture - Final Yeast Species 06/29/17 15:38 Urine Culture - Final Urine,Eden Yeast Species 06/29/17 17:43 MRSA Culture (Admit) - Final Naris MRSA NOT DETECTED 06/25/17 16:51 Anaerobic Culture - Final Pleural Fluid NO ANAEROBES ISOLATED. Lab Studies 07/01/17 07/01/17 07/01/17 Range/Units 11:16 06:28 05:15 WBC (4.8-10.8) K/uL RBC (4.40-5.90) Mil/uL Hgb (12.0-18.0) g/dL Hct (35.0-51.0) % MCV (80.0-94.0) fl MCH (27.0-31.0) pg MCHC (33.0-37.0) g/dL RDW (11.5-14.5) % Plt Count (130-400) K/uL MPV (7.2-11.7) fl Neut % (Auto) (50.0-75.0) % Lymph % (Auto) (20.0-40.0) % Casey % (Auto) (0.0-10.0) % Eos % (Auto) (0.0-4.0) % Baso % (Auto) (0.0-2.0) % Neut # (1.8-7.0) K/uL Lymph # (1.0-4.3) K/uL Casey # (0.0-0.8) K/uL Eos # (0.0-0.7) K/uL Baso # (0.0-0.2) K/uL Neutrophils % (Manual) (42-75) % Lymphocytes % (Manual) (20-50) % Monocytes % (Manual) (0-10) % Platelet Estimate (NORMAL) Hypochromasia (manual) Poikilocytosis (manual Anisocytosis (manual) Tear Drop Cells Ovalocytes Jude Cells Schistocytes pCO2 (35-45) mm/Hg pO2 (80-100) mm/Hg HCO3 (21-28) mmol/L ABG pH (7.35-7.45) ABG Total CO2 (22-28) mmol/L ABG O2 Saturation (95-98) % ABG O2 Content (15-23) ML/dL ABG Base Excess (-2.0-3.0) mmol/L ABG Hemoglobin (11.7-17.4) g/dL ABG Carboxyhemoglobin (0.5-1.5) % POC ABG HHb (Measured) (0.0-5.0) % ABG Methemoglobin (0.0-3.0) % ABG O2 Capacity (16-24) mL/dL Andry Test ABG Potassium (3.6-5.2) mmol/L A-a O2 Difference mm/Hg Hgb O2 Saturation (95.0-98.0) % Sodium (132-148) mmol/L Chloride (98-107) mmol/L Glucose (75-110) mg/dL Lactate (0.7-2.1) mmol/L Vent Mode Mechanical Rate FiO2 % Tidal Volume PEEP Potassium (3.6-5.0) MMOL/L Carbon Dioxide (22-30) mmol/L Anion Gap (10-20) BUN (9-20) mg/dl Creatinine (0.8-1.5) mg/dl Est GFR ( Amer) Est GFR (Non-Af Amer) POC Glucose (mg/dL) 255 H 181 H (65-110) mg/dL Random Glucose (75-110) mg/dL Lactic Acid 0.8 (0.7-2.1) MMOL/L Calcium (8.4-10.2) mg/dL Phosphorus (2.5-4.5) mg/dl Magnesium (1.6-2.3) MG/DL Total Bilirubin (0.2-1.3) mg/dl AST (17-59) U/L ALT (21-72) U/L Alkaline Phosphatase (38-126) U/L Total Protein (6.3-8.2) G/DL Albumin (3.5-5.0) g/dL Globulin (2.2-3.9) gm/dL Albumin/Globulin Ratio (1.0-2.1) Arterial Blood Potassium (3.6-5.2) mmol/L 07/01/17 07/01/17 07/01/17 Range/Units 05:15 05:15 04:51 WBC 11.8 H (4.8-10.8) K/uL RBC 2.67 L (4.40-5.90) Mil/uL Hgb 8.5 L (12.0-18.0) g/dL Hct 24.8 L (35.0-51.0) % MCV 92.8 D (80.0-94.0) fl MCH 31.9 H (27.0-31.0) pg MCHC 34.4 (33.0-37.0) g/dL RDW 17.2 H (11.5-14.5) % Plt Count 108 L (130-400) K/uL MPV 10.0 (7.2-11.7) fl Neut % (Auto) 92.8 H (50.0-75.0) % Lymph % (Auto) 4.0 L (20.0-40.0) % Casey % (Auto) 2.4 (0.0-10.0) % Eos % (Auto) 0.5 (0.0-4.0) % Baso % (Auto) 0.3 (0.0-2.0) % Neut # 10.9 H (1.8-7.0) K/uL Lymph # 0.5 L (1.0-4.3) K/uL Casey # 0.3 (0.0-0.8) K/uL Eos # 0.1 (0.0-0.7) K/uL Baso # 0.0 (0.0-0.2) K/uL Neutrophils % (Manual) 96 H (42-75) % Lymphocytes % (Manual) 2 L (20-50) % Monocytes % (Manual) 2 (0-10) % Platelet Estimate Decreased L (NORMAL) Hypochromasia (manual) Slight Poikilocytosis (manual Moderate Anisocytosis (manual) Slight Tear Drop Cells Slight Ovalocytes Slight Jude Cells Moderate Schistocytes Slight pCO2 29 L (35-45) mm/Hg pO2 110 H (80-100) mm/Hg HCO3 22.8 (21-28) mmol/L ABG pH 7.46 H (7.35-7.45) ABG Total CO2 21.5 L (22-28) mmol/L ABG O2 Saturation 99.4 H (95-98) % ABG O2 Content 11.2 L (15-23) ML/dL ABG Base Excess -2.7 L (-2.0-3.0) mmol/L ABG Hemoglobin 8.1 L (11.7-17.4) g/dL ABG Carboxyhemoglobin 1.3 (0.5-1.5) % POC ABG HHb (Measured) 0.6 (0.0-5.0) % ABG Methemoglobin 1.2 (0.0-3.0) % ABG O2 Capacity 11.3 L (16-24) mL/dL Andry Test Yes ABG Potassium (3.6-5.2) mmol/L A-a O2 Difference 68.0 mm/Hg Hgb O2 Saturation 96.8 (95.0-98.0) % Sodium 142 (132-148) mmol/L Chloride 113 H (98-107) mmol/L Glucose (75-110) mg/dL Lactate (0.7-2.1) mmol/L Vent Mode A/c Mechanical Rate 22 FiO2 30.0 % Tidal Volume 500 PEEP 5 Potassium 3.6 (3.6-5.0) MMOL/L Carbon Dioxide 20 L (22-30) mmol/L Anion Gap 13 (10-20) BUN 81 H (9-20) mg/dl Creatinine 4.1 H (0.8-1.5) mg/dl Est GFR ( Amer) 18 Est GFR (Non-Af Amer) 15 POC Glucose (mg/dL) (65-110) mg/dL Random Glucose 190 H (75-110) mg/dL Lactic Acid (0.7-2.1) MMOL/L Calcium 8.5 (8.4-10.2) mg/dL Phosphorus 7.8 H (2.5-4.5) mg/dl Magnesium 2.5 H (1.6-2.3) MG/DL Total Bilirubin 0.3 (0.2-1.3) mg/dl AST 43 (17-59) U/L ALT 69 (21-72) U/L Alkaline Phosphatase 233 H (38-126) U/L Total Protein 5.6 L (6.3-8.2) G/DL Albumin 2.7 L (3.5-5.0) g/dL Globulin 2.9 (2.2-3.9) gm/dL Albumin/Globulin Ratio 0.9 L (1.0-2.1) Arterial Blood Potassium (3.6-5.2) mmol/L 06/30/17 06/30/17 Range/Units 21:48 13:00 WBC (4.8-10.8) K/uL RBC (4.40-5.90) Mil/uL Hgb (12.0-18.0) g/dL Hct (35.0-51.0) % MCV (80.0-94.0) fl MCH (27.0-31.0) pg MCHC (33.0-37.0) g/dL RDW (11.5-14.5) % Plt Count (130-400) K/uL MPV (7.2-11.7) fl Neut % (Auto) (50.0-75.0) % Lymph % (Auto) (20.0-40.0) % Casey % (Auto) (0.0-10.0) % Eos % (Auto) (0.0-4.0) % Baso % (Auto) (0.0-2.0) % Neut # (1.8-7.0) K/uL Lymph # (1.0-4.3) K/uL Casey # (0.0-0.8) K/uL Eos # (0.0-0.7) K/uL Baso # (0.0-0.2) K/uL Neutrophils % (Manual) (42-75) % Lymphocytes % (Manual) (20-50) % Monocytes % (Manual) (0-10) % Platelet Estimate (NORMAL) Hypochromasia (manual) Poikilocytosis (manual Anisocytosis (manual) Tear Drop Cells Ovalocytes Chester Cells Schistocytes pCO2 31 L (35-45) mm/Hg pO2 161 H (80-100) mm/Hg HCO3 21.5 (21-28) mmol/L ABG pH 7.41 (7.35-7.45) ABG Total CO2 20.6 L (22-28) mmol/L ABG O2 Saturation 99.4 H (95-98) % ABG O2 Content (15-23) ML/dL ABG Base Excess -4.4 L (-2.0-3.0) mmol/L ABG Hemoglobin (11.7-17.4) g/dL ABG Carboxyhemoglobin (0.5-1.5) % POC ABG HHb (Measured) (0.0-5.0) % ABG Methemoglobin (0.0-3.0) % ABG O2 Capacity (16-24) mL/dL Andry Test Yes ABG Potassium 3.7 (3.6-5.2) mmol/L A-a O2 Difference 85.0 mm/Hg Hgb O2 Saturation (95.0-98.0) % Sodium 143.0 (132-148) mmol/L Chloride 118.0 H (98-107) mmol/L Glucose 171 H (75-110) mg/dL Lactate 1.1 (0.7-2.1) mmol/L Vent Mode A/c Mechanical Rate 22 FiO2 40.0 % Tidal Volume 500 PEEP 5 Potassium (3.6-5.0) MMOL/L Carbon Dioxide (22-30) mmol/L Anion Gap (10-20) BUN (9-20) mg/dl Creatinine (0.8-1.5) mg/dl Est GFR ( Amer) Est GFR (Non-Af Amer) POC Glucose (mg/dL) 126 H (65-110) mg/dL Random Glucose (75-110) mg/dL Lactic Acid (0.7-2.1) MMOL/L Calcium (8.4-10.2) mg/dL Phosphorus (2.5-4.5) mg/dl Magnesium (1.6-2.3) MG/DL Total Bilirubin (0.2-1.3) mg/dl AST (17-59) U/L ALT (21-72) U/L Alkaline Phosphatase (38-126) U/L Total Protein (6.3-8.2) G/DL Albumin (3.5-5.0) g/dL Globulin (2.2-3.9) gm/dL Albumin/Globulin Ratio (1.0-2.1) Arterial Blood Potassium 3.7 (3.6-5.2) mmol/L Laboratory Results - last 24 hr 06/30/17 06/30/17 07/01/17 13:00 21:48 04:51 WBC RBC Hgb Hct MCV MCH MCHC RDW Plt Count MPV Neut % (Auto) Lymph % (Auto) Casey % (Auto) Eos % (Auto) Baso % (Auto) Neut # Lymph # Casey # Eos # Baso # Neutrophils % (Manual) Lymphocytes % (Manual) Monocytes % (Manual) Platelet Estimate Hypochromasia (manual) Poikilocytosis (manual Anisocytosis (manual) Tear Drop Cells Ovalocytes Chester Cells Schistocytes pCO2 31 L 29 L pO2 161 H 110 H HCO3 21.5 22.8 ABG pH 7.41 7.46 H ABG Total CO2 20.6 L 21.5 L ABG O2 Saturation 99.4 H 99.4 H ABG O2 Content 11.2 L ABG Base Excess -4.4 L -2.7 L ABG Hemoglobin 8.1 L ABG Carboxyhemoglobin 1.3 POC ABG HHb (Measured) 0.6 ABG Methemoglobin 1.2 ABG O2 Capacity 11.3 L Andry Test Yes Yes ABG Potassium 3.7 A-a O2 Difference 85.0 68.0 Hgb O2 Saturation 96.8 Sodium 143.0 Chloride 118.0 H Glucose 171 H Lactate 1.1 Vent Mode A/c A/c Mechanical Rate 22 22 FiO2 40.0 30.0 Tidal Volume 500 500 PEEP 5 5 Potassium Carbon Dioxide Anion Gap BUN Creatinine Est GFR ( Amer) Est GFR (Non-Af Amer) POC Glucose (mg/dL) 126 H Random Glucose Lactic Acid Calcium Phosphorus Magnesium Total Bilirubin AST ALT Alkaline Phosphatase Total Protein Albumin Globulin Albumin/Globulin Ratio Arterial Blood Potassium 3.7 07/01/17 07/01/17 07/01/17 05:15 05:15 05:15 WBC 11.8 H RBC 2.67 L Hgb 8.5 L Hct 24.8 L MCV 92.8 D MCH 31.9 H MCHC 34.4 RDW 17.2 H Plt Count 108 L MPV 10.0 Neut % (Auto) 92.8 H Lymph % (Auto) 4.0 L Casey % (Auto) 2.4 Eos % (Auto) 0.5 Baso % (Auto) 0.3 Neut # 10.9 H Lymph # 0.5 L Casey # 0.3 Eos # 0.1 Baso # 0.0 Neutrophils % (Manual) 96 H Lymphocytes % (Manual) 2 L Monocytes % (Manual) 2 Platelet Estimate Decreased L Hypochromasia (manual) Slight Poikilocytosis (manual Moderate Anisocytosis (manual) Slight Tear Drop Cells Slight Ovalocytes Slight Jude Cells Moderate Schistocytes Slight pCO2 pO2 HCO3 ABG pH ABG Total CO2 ABG O2 Saturation ABG O2 Content ABG Base Excess ABG Hemoglobin ABG Carboxyhemoglobin POC ABG HHb (Measured) ABG Methemoglobin ABG O2 Capacity Andry Test ABG Potassium A-a O2 Difference Hgb O2 Saturation Sodium 142 Chloride 113 H Glucose Lactate Vent Mode Mechanical Rate FiO2 Tidal Volume PEEP Potassium 3.6 Carbon Dioxide 20 L Anion Gap 13 BUN 81 H Creatinine 4.1 H Est GFR ( Amer) 18 Est GFR (Non-Af Amer) 15 POC Glucose (mg/dL) Random Glucose 190 H Lactic Acid 0.8 Calcium 8.5 Phosphorus 7.8 H Magnesium 2.5 H Total Bilirubin 0.3 AST 43 ALT 69 Alkaline Phosphatase 233 H Total Protein 5.6 L Albumin 2.7 L Globulin 2.9 Albumin/Globulin Ratio 0.9 L Arterial Blood Potassium 07/01/17 07/01/17 06:28 11:16 WBC RBC Hgb Hct MCV MCH MCHC RDW Plt Count MPV Neut % (Auto) Lymph % (Auto) Casey % (Auto) Eos % (Auto) Baso % (Auto) Neut # Lymph # Casey # Eos # Baso # Neutrophils % (Manual) Lymphocytes % (Manual) Monocytes % (Manual) Platelet Estimate Hypochromasia (manual) Poikilocytosis (manual Anisocytosis (manual) Tear Drop Cells Ovalocytes Chester Cells Schistocytes pCO2 pO2 HCO3 ABG pH ABG Total CO2 ABG O2 Saturation ABG O2 Content ABG Base Excess ABG Hemoglobin ABG Carboxyhemoglobin POC ABG HHb (Measured) ABG Methemoglobin ABG O2 Capacity Andry Test ABG Potassium A-a O2 Difference Hgb O2 Saturation Sodium Chloride Glucose Lactate Vent Mode Mechanical Rate FiO2 Tidal Volume PEEP Potassium Carbon Dioxide Anion Gap BUN Creatinine Est GFR ( Amer) Est GFR (Non-Af Amer) POC Glucose (mg/dL) 181 H 255 H Random Glucose Lactic Acid Calcium Phosphorus Magnesium Total Bilirubin AST ALT Alkaline Phosphatase Total Protein Albumin Globulin Albumin/Globulin Ratio Arterial Blood Potassium Critical Care Progress Note - Nutrition Nutrition: Nutrition Category Date Time Status NPO Diet [DIET] Diets 06/30/17 Dinner Active Attending/Attestation - Attestation I have personally seen and examined this patient.: Yes I have fully participated in the care of the patient.: Yes I have reviewed all pertinent clinical information: Yes Notes (Text): 07/01/17 12:42 Today: Saturday, July 01, 2017 The patient was Seen/interviewed and examined by me at the bedside during ICU round, Medical records reviewed and Management issues were discussed and formulated with the house staff. Events reviewed I have reviewed all the relevant clinical, laboratory, hemodynamic, radiographic data and medications Pain issues, skin care, head of the bed elevation, glycemic control were addressed. I concur with resident's assessment and plan of care as transcribed in Dr. Magana note.
[2017-07-01 12:34] LABS: LYMPHOCYTE 2 % (20-50); MONOCYTE 2 % (0-10); NEUTROPHIL 96 % (42-75); TOTAL CELLS COUNTED 100
[2017-07-01 12:35] LABS: ANISOCYTOSIS SLIGHT; PLATELET ESTIMATE DECREASED (NORMAL)
[2017-07-01 12:36] LABS: BURR CELLS MODERATE; HYPOCHROMIC SLIGHT; OVALOCYTES SLIGHT; POIKILOCYTOSIS MODERATE; SCHISTOCYTES SLIGHT; TEARDROP CELLS SLIGHT
--- NOTE | 2017-07-01 13:43 | CP.PCM.PN ---
Subjective - Date & Time of Evaluation Date of Evaluation: 07/01/17 Time of Evaluation: 08:00 - Subjective Subjective: intubated/ sedated in ICU iv rx in progress no new cultures + hypothermia possibly central ? neuro on board Objective - Vital Signs/Intake and Output Vital Signs (last 24 hours): Temp Pulse Resp BP Pulse Ox 97.4 F L 65 22 130/62 100 07/01/17 12:00 07/01/17 13:01 07/01/17 13:01 07/01/17 13:01 07/01/17 13:01 Intake and Output: 07/01/17 07/01/17 06:59 18:59 Intake Total 630 650 Output Total 800 Balance -170 650 - Medications Medications: Current Medications Albuterol/Ipratropium (Duoneb 3 Mg/0.5 Mg (3 Ml) Ud) 3 ml INH RQID [facility] Last Admin: 07/01/17 11:44 Dose: 3 ml Amlodipine Besylate (Norvasc) 10 mg PO DAILY [facility] Last Admin: 07/01/17 09:13 Dose: 10 mg Bacitracin (Bacitracin Oint) 1 applic TOP TID [facility] Last Admin: 07/01/17 12:05 Dose: 1 applic Calcium Acetate (Phoslo) 2,001 mg PO WM [facility] Last Admin: 07/01/17 12:04 Dose: 2,001 mg Dextrose (Dextrose 50% Inj) 0 ml IV STAT PRN; Protocol PRN Reason: Hypoglycemia Protocol Dextrose (Glutose 15) 0 gm PO ONCE PRN; Protocol PRN Reason: Hypoglycemia Protocol Enoxaparin Sodium (Lovenox) 30 mg SC DAILY [facility] PRN Reason: Protocol Last Admin: 07/01/17 08:59 Dose: 30 mg Epoetin Roel (Procrit) 10,000 unit SC MWF [facility] Last Admin: 06/30/17 09:37 Dose: 10,000 unit Ergocalciferol (Drisdol 50,000 Intl Units Cap) 1 cap PO Q7D [facility] Last Admin: 07/01/17 09:01 Dose: 1 cap Furosemide (Lasix) 80 mg IV Q8 [facility] Last Admin: 07/01/17 10:52 Dose: 80 mg Glucagon (Glucagen Diagnostic Kit) 0 mg IM STAT PRN; Protocol PRN Reason: Hypoglycemia Protocol Haloperidol Lactate (Haldol) 0.5 mg IM Q6 PRN PRN Reason: Agitation Last Admin: 06/25/17 14:35 Dose: 0.5 mg Hydralazine HCl (Apresoline) 50 mg PO Q8 [facility] Last Admin: 07/01/17 09:00 Dose: 50 mg Linezolid (Zyvox 600mg/300ml D5w) 600 mg in 300 mls @ 300 mls/hr IVPB Q12 [facility] PRN Reason: Protocol Last Admin: 07/01/17 09:33 Dose: 300 mls/hr Cefepime HCl 1 gm/ Sodium (Chloride) 100 mls @ 100 mls/hr IVPB DAILY [facility] PRN Reason: Protocol Last Admin: 07/01/17 09:02 Dose: 100 mls/hr Insulin Human Lispro (Humalog) 0 units SC ACHS [facility] PRN Reason: Protocol Last Admin: 07/01/17 12:01 Dose: 4 units Labetalol HCl (Trandate) 5 mg IVP Q6H PRN PRN Reason: Systolic Blood Pressure Levalbuterol HCl (Xopenex) 0.63 mg INH RQ8 PRN PRN Reason: Shortness of Breath Pantoprazole Sodium (Protonix Inj) 40 mg IVP DAILY [facility] Last Admin: 07/01/17 08:59 Dose: 40 mg Sodium Bicarbonate (Sodium Bicarbonate Tab) 1,300 mg PO Q8 [facility] Last Admin: 07/01/17 09:02 Dose: 1,300 mg Thiamine HCl (Vitamin B1 Tab) 100 mg PO BID [facility] Last Admin: 07/01/17 09:02 Dose: 100 mg - Labs Labs: 07/01/17 05:15 07/01/17 05:15 PT 14.7 Seconds (9.8-13.1) H 06/24/17 07:45 INR 1.3 (0.9-1.2) H 06/24/17 07:45 APTT 45.1 Seconds (25.6-37.1) H 06/22/17 20:33 - Constitutional Appears: Cachectic, Chronically Ill - Head Exam Head Exam: NORMOCEPHALIC - Eye Exam Eye Exam: absent: Scleral icterus - ENT Exam ENT Exam: Mucous Membranes Dry - Neck Exam Neck Exam: absent: Lymphadenopathy - Respiratory Exam Respiratory Exam: Decreased Breath Sounds - Cardiovascular Exam Cardiovascular Exam: REGULAR RHYTHM - GI/Abdominal Exam GI & Abdominal Exam: Distended, Soft - Rectal Exam Rectal Exam: Deferred - Exam Exam: NORMAL INSPECTION - Extremities Exam Extremities Exam: absent: Pedal Edema - Back Exam Back Exam: absent: CVA tenderness (L), CVA tenderness (R) - Neurological Exam Neurological Exam: Altered - Psychiatric Exam Psychiatric exam: Depressed - Skin Skin Exam: Dry Assessment and Plan (1) Acute renal failure Status: Acute (2) Altered mental status Status: Acute (3) CHF (congestive heart failure) Status: Acute (4) DM2 (diabetes mellitus, type 2) Status: Acute (5) HCAP (healthcare-associated pneumonia) Status: Acute (6) Pleural effusion Status: Acute (7) SIRS (systemic inflammatory response syndrome) Status: Acute (8) Sepsis Status: Acute (9) Acute kidney injury superimposed on chronic kidney disease Status: Acute (10) Alcohol abuse Status: Acute (11) Anasarca Status: Acute (12) Anemia of renal disease Status: Acute (13) Bilateral lower extremity edema Status: Acute - Assessment and Plan (Free Text) Assessment: AFB pending may need bronchoscopy to r/o malignancy dr hoffman on board Mycamine added all bacterial cultures neg thus far
[2017-07-01] MEDS: Micafungin 100 MG in Sodium Chloride 0.9% 100 ML IVPB SCH (14:50)
--- NOTE | 2017-07-01 19:21 | CP.PCM.PN ---
Subjective - Date & Time of Evaluation Date of Evaluation: 07/01/17 Time of Evaluation: 19:00 - Subjective Subjective: Patient still intubated due to poor mental status; Objective - Vital Signs/Intake and Output Vital Signs (last 24 hours): Temp Pulse Resp BP Pulse Ox 98.9 F 102 H 20 129/56 L 97 07/01/17 16:00 07/01/17 18:00 07/01/17 18:00 07/01/17 18:01 07/01/17 18:00 Intake and Output: 07/01/17 07/02/17 18:59 06:59 Intake Total 990 Output Total 700 Balance 290 - Medications Medications: Current Medications Albuterol/Ipratropium (Duoneb 3 Mg/0.5 Mg (3 Ml) Ud) 3 ml INH RQID [facility] Last Admin: 07/01/17 19:12 Dose: 3 ml Amlodipine Besylate (Norvasc) 10 mg PO DAILY [facility] Last Admin: 07/01/17 09:13 Dose: 10 mg Bacitracin (Bacitracin Oint) 1 applic TOP TID [facility] Last Admin: 07/01/17 17:36 Dose: 1 applic Calcium Acetate (Phoslo) 2,001 mg PO WM [facility] Last Admin: 07/01/17 17:35 Dose: 2,001 mg Dextrose (Dextrose 50% Inj) 0 ml IV STAT PRN; Protocol PRN Reason: Hypoglycemia Protocol Dextrose (Glutose 15) 0 gm PO ONCE PRN; Protocol PRN Reason: Hypoglycemia Protocol Epoetin Roel (Procrit) 10,000 unit SC MWF [facility] Last Admin: 06/30/17 09:37 Dose: 10,000 unit Ergocalciferol (Drisdol 50,000 Intl Units Cap) 1 cap PO Q7D [facility] Last Admin: 07/01/17 09:01 Dose: 1 cap Furosemide (Lasix) 80 mg IV Q8 [facility] Last Admin: 07/01/17 18:01 Dose: 80 mg Glucagon (Glucagen Diagnostic Kit) 0 mg IM STAT PRN; Protocol PRN Reason: Hypoglycemia Protocol Haloperidol Lactate (Haldol) 0.5 mg IM Q6 PRN PRN Reason: Agitation Last Admin: 06/25/17 14:35 Dose: 0.5 mg Hydralazine HCl (Apresoline) 25 mg PO Q8 [facility] Linezolid (Zyvox 600mg/300ml D5w) 600 mg in 300 mls @ 300 mls/hr IVPB Q12 [facility] PRN Reason: Protocol Last Admin: 07/01/17 09:33 Dose: 300 mls/hr Cefepime HCl 1 gm/ Sodium (Chloride) 100 mls @ 100 mls/hr IVPB DAILY [facility] PRN Reason: Protocol Last Admin: 07/01/17 09:02 Dose: 100 mls/hr Micafungin Sodium 100 mg/ (Sodium Chloride) 100 mls @ 100 mls/hr IVPB DAILY [facility] PRN Reason: Protocol Last Admin: 07/01/17 14:50 Dose: 100 mls/hr Insulin Human Lispro (Humalog) 0 units SC ACHS [facility] PRN Reason: Protocol Last Admin: 07/01/17 17:40 Dose: 2 units Labetalol HCl (Trandate) 5 mg IVP Q6H PRN PRN Reason: Systolic Blood Pressure Levalbuterol HCl (Xopenex) 0.63 mg INH RQ8 PRN PRN Reason: Shortness of Breath Pantoprazole Sodium (Protonix Inj) 40 mg IVP DAILY [facility] Last Admin: 07/01/17 08:59 Dose: 40 mg Sodium Bicarbonate (Sodium Bicarbonate Tab) 1,300 mg PO Q8 [facility] Last Admin: 07/01/17 18:53 Dose: 1,300 mg Thiamine HCl (Vitamin B1 Tab) 100 mg PO BID [facility] Last Admin: 07/01/17 17:35 Dose: 100 mg - Labs Labs: 07/01/17 05:15 07/01/17 05:15 PT 14.7 Seconds (9.8-13.1) H 06/24/17 07:45 INR 1.3 (0.9-1.2) H 06/24/17 07:45 APTT 45.1 Seconds (25.6-37.1) H 06/22/17 20:33 - Constitutional Appears: Non-toxic, No Acute Distress - Eye Exam Eye Exam: absent: Scleral icterus - ENT Exam ENT Exam: Mucous Membranes Moist - Respiratory Exam Respiratory Exam: Clear to Ausculation Bilateral Additional comments: tachypneic - Cardiovascular Exam Cardiovascular Exam: RRR, +S1, +S2 - GI/Abdominal Exam GI & Abdominal Exam: Soft. absent: Distended, Tenderness - Exam Exam: Scrotal Swelling - Extremities Exam Additional comments: markedly edematous, anasarca - Neurological Exam Neurological Exam: Awake Additional comments: not following commands; - Psychiatric Exam Psychiatric exam: absent: Agitated - Skin Skin Exam: Warm. absent: Cyanosis Assessment and Plan (1) Acute renal failure Assessment & Plan: CHINTAN on CKD IIIB; repeated ATN insults; nevertheless, serum creatinine at relative plateau over past few days which indicates a hemodynamic component as to why renal function not improving; likely intravascularly volume depletion, despite hypertensive readings, in the setting of severe nephrotic sydrome as well as being given diuretics; furthermore, patient has likely renovascular disease (see extensive calcifications on CT); Diuretics being maintained to avoid worsening of pleural effusion; -will decrease BP meds to allow for better renal perfusion (decreasing hydralazine to 25 mg q8h) -no indication for [employer] at this time Status: Acute (2) Pleural effusion Status: Chronic (3) Hypothermia Status: Acute (4) Altered mental status Status: Acute (5) SIRS (systemic inflammatory response syndrome) Assessment & Plan: Now with yeast in sputum culture, started on micafungin, no renal dose adjustment needed; continue to dose rest of abx for CrCl < 15; Status: Acute (6) Nephrotic syndrome Status: Chronic (7) Anemia Assessment & Plan: Hgb relatively stable but platelet count noted to be dropping, lovenox stopped; continue EPO; Status: Chronic (8) Chronic kidney disease, stage 3 (moderate) Status: Chronic (9) Hypertensive CKD (chronic kidney disease) Assessment & Plan: Hydralazine dose being decreased, would target SBP in 150's for now; Status: Acute
[2017-07-02 05:36] LABS: ABG ALLEN TEST YES; ARTERIAL BLOOD GAS HCO3 23.3 mmol/L (21-28); ARTERIAL BLOOD GAS HEMOGLOBIN 8.2 g/dL (11.7-17.4); ARTERIAL BLOOD GAS O2 CAPACITY 12.1 mL/dL (16-24); ARTERIAL BLOOD GAS O2 CONTENT 12.1 ML/dL (15-23); ARTERIAL BLOOD GAS O2 SAT 99.8 % (95-98); ARTERIAL BLOOD GAS PCO2 35 mm/Hg (35-45); ARTERIAL BLOOD GAS PH 7.41 (7.35-7.45); ARTERIAL BLOOD GAS PO2 329 mm/Hg (80-100); ARTERIAL BLOOD GAS TCO2 23.3 mmol/L (22-28)
[2017-07-02 05:42] LABS: BASO % 0.3 % (0.0-2.0); EOS # 0.1 K/uL (0.0-0.7); EOS % 0.8 % (0.0-4.0); HEMOGLOBIN 7.4 g/dL (12.0-18.0); LYMPH # 0.8 K/uL (1.0-4.3); MEAN CELL VOLUME 94.4 fl (80.0-94.0); MEAN CORPUSCULAR HEMOGLOBIN 30.9 pg (27.0-31.0); MEAN CORPUSCULAR HGB CONC 32.8 g/dL (33.0-37.0); MONO # 0.4 K/uL (0.0-0.8); MONO % 3.4 % (0.0-10.0); NEUT # 9.8 K/uL (1.8-7.0); NEUT % 88.5 % (50.0-75.0); NRBC % 0.2 % (0.0-0.0); RBC 2.4 Mil/uL (4.40-5.90); RED CELL DISTRIBUTION WIDTH 17.4 % (11.5-14.5)
[2017-07-02 05:48] LABS: ALB/GLOB RATIO 0.9 (1.0-2.1); ALBUMIN 2.6 g/dL (3.5-5.0); CALCIUM 8.9 mg/dL (8.4-10.2)
[2017-07-02 05:57] LABS: INR 1.2 (0.9-1.2); PROTHROMBIN TIME 13.7 Seconds (9.8-13.1)
[2017-07-02 05:58] LABS: PARTIAL THROMBOPLASTIN TIME 37.2 Seconds (25.6-37.1)
[2017-07-02 06:03] LABS: T4 4.33 ug/dl (5.5-11.0)
--- NOTE | 2017-07-02 07:51 | CP.PCM.PN ---
Subjective - Date & Time of Evaluation Date of Evaluation: 07/02/17 Time of Evaluation: 07:10 - Subjective Subjective: Patient seen and examined bedside in ICU. Patient intubated on ventilator day # 3, awake, alert, open eyes on verbal commands, able to move hands and feet. Vent setting Ac FIO2 30%, peep 5, RR 16, [place] with yellow urine 350 ml. CPAP trial tried yesterday. will try again today with extubation in the morning Patient seen by marine gear keeper this morning. Objective - Vital Signs/Intake and Output Vital Signs (last 24 hours): Temp Pulse Resp BP Pulse Ox 98.7 F 72 16 163/67 H 100 07/02/17 04:00 07/02/17 06:00 07/02/17 06:00 07/02/17 06:00 07/02/17 06:00 Intake and Output: 07/02/17 07/02/17 06:59 18:59 Intake Total 671 Output Total 800 Balance -129 - Medications Medications: Current Medications Albuterol/Ipratropium (Duoneb 3 Mg/0.5 Mg (3 Ml) Ud) 3 ml INH RQID [facility] Last Admin: 07/01/17 19:12 Dose: 3 ml Amlodipine Besylate (Norvasc) 10 mg PO DAILY [facility] Last Admin: 07/01/17 09:13 Dose: 10 mg Bacitracin (Bacitracin Oint) 1 applic TOP TID [facility] Last Admin: 07/01/17 17:36 Dose: 1 applic Calcium Acetate (Phoslo) 2,001 mg PO WM [facility] Last Admin: 07/01/17 17:35 Dose: 2,001 mg Dextrose (Dextrose 50% Inj) 0 ml IV STAT PRN; Protocol PRN Reason: Hypoglycemia Protocol Dextrose (Glutose 15) 0 gm PO ONCE PRN; Protocol PRN Reason: Hypoglycemia Protocol Enoxaparin Sodium (Lovenox) 30 mg SC DAILY [facility] PRN Reason: Protocol Epoetin Roel (Procrit) 10,000 unit SC MWF [facility] Last Admin: 06/30/17 09:37 Dose: 10,000 unit Ergocalciferol (Drisdol 50,000 Intl Units Cap) 1 cap PO Q7D [facility] Last Admin: 07/01/17 09:01 Dose: 1 cap Furosemide (Lasix) 80 mg IV Q8 [facility] Last Admin: 07/02/17 01:51 Dose: 80 mg Glucagon (Glucagen Diagnostic Kit) 0 mg IM STAT PRN; Protocol PRN Reason: Hypoglycemia Protocol Haloperidol Lactate (Haldol) 0.5 mg IM Q6 PRN PRN Reason: Agitation Last Admin: 06/25/17 14:35 Dose: 0.5 mg Hydralazine HCl (Apresoline) 25 mg PO Q8 [facility] Last Admin: 07/02/17 01:39 Dose: 25 mg Linezolid (Zyvox 600mg/300ml D5w) 600 mg in 300 mls @ 300 mls/hr IVPB Q12 [facility] PRN Reason: Protocol Last Admin: 07/01/17 21:47 Dose: 300 mls/hr Cefepime HCl 1 gm/ Sodium (Chloride) 100 mls @ 100 mls/hr IVPB DAILY [facility] PRN Reason: Protocol Last Admin: 07/01/17 09:02 Dose: 100 mls/hr Micafungin Sodium 100 mg/ (Sodium Chloride) 100 mls @ 100 mls/hr IVPB DAILY [facility] PRN Reason: Protocol Last Admin: 07/01/17 14:50 Dose: 100 mls/hr Insulin Human Lispro (Humalog) 0 units SC ACHS [facility] PRN Reason: Protocol Last Admin: 07/01/17 21:56 Dose: Not Given Labetalol HCl (Trandate) 5 mg IVP Q6H PRN PRN Reason: Systolic Blood Pressure Levalbuterol HCl (Xopenex) 0.63 mg INH RQ8 PRN PRN Reason: Shortness of Breath Pantoprazole Sodium (Protonix Inj) 40 mg IVP DAILY [facility] Last Admin: 07/01/17 08:59 Dose: 40 mg Sodium Bicarbonate (Sodium Bicarbonate Tab) 1,300 mg PO Q8 [facility] Last Admin: 07/02/17 01:39 Dose: 1,300 mg Thiamine HCl (Vitamin B1 Tab) 100 mg PO BID [facility] Last Admin: 07/01/17 17:35 Dose: 100 mg - Labs Labs: 07/02/17 04:45 07/02/17 04:45 PT 13.7 Seconds (9.8-13.1) H 07/02/17 04:45 INR 1.2 (0.9-1.2) 07/02/17 04:45 APTT 37.2 Seconds (25.6-37.1) H 07/02/17 04:45 - Constitutional Appears: In Acute Distress - Head Exam Head Exam: ATRAUMATIC, NORMOCEPHALIC - Eye Exam Eye Exam: Normal appearance - Neck Exam Neck Exam: Normal Inspection - Respiratory Exam Respiratory Exam: Decreased Breath Sounds, Rhonchi, Wheezes Additional comments: decreased breath sound left lung base, wheezing noticed b/l anterior upper chest today in the morning - Cardiovascular Exam Cardiovascular Exam: REGULAR RHYTHM, +S1, +S2 - GI/Abdominal Exam GI & Abdominal Exam: Soft, Normal Bowel Sounds. absent: Tenderness - Extremities Exam Extremities Exam: Pedal Edema Additional comments: right foot pedal edema 2+, B/L edema 3 + B/l thigh scrotal edema - Neurological Exam Neurological Exam: Alert, Awake Neuro motor strength exam: Left Upper Extremity: 2/1, Right Upper Extremity: 2/1 , Left Lower Extremity: 2/1, Right Lower Extremity: 2/1 - Skin Skin Exam: Abrasion, Pallor - Additional Findings Additional findings: abrasion over tip of nose and left hand dorsal surface, no erythema, discharge appreciated. Assessment and Plan - Assessment and Plan (Free Text) Plan: 66 yo M w/ pmh of htn, dm, CKD IIIB w/ 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, monoclonal gammopathy, recurrent L pleural effusion, admitted for sepsis, Hypothermia, CHINTAN on CKD 1) Acute Respiratory Failure secondary to worsening pleural effusion on nephrotic syndrome -Admitted ICU -s/p cardiac arrest 3 days ago with ROSC after 4 min and 2 rounds of epi -Intubated On venitilator day # 3 PRVC/AC FIO2 30 %, Peep 5, RR: 16 -ABG: PH 7.41 HCO3 23 -sputum and trach cx: yeast -f/u CXR, ABG 2) Recurrent Left Pleural effusion - S/P left thoracocentesis: Removed 1.2 L of straw colored fluid. F/u with cultures and cytology - has reaccumulated 06/29/17 2/2 warming fluids - CXR today showed mild improvement of pleural effusion while on lasix - IR consult suggested for thoracentesis after patient get off from ventilator - Transudate pleural fluid: Total serum Protein:5.5, Plerual fluid protein: 2, serum LDH: 689, Pleural fluid LDH: 323: Positive lights criteria -Pulmonology consult appreciated 3) HAP -recent admission before 06/22 -worsening of pleural effusions and new infiltrates. -c/w cefepime day # 7, linezolid day # 8 -Procalcitonin 14.4 07/01/17 4) Sepsis - SIRS (hypothermia,tachypnea,leukocytosis) and possible aspirative PNA after cardiac arrest - CXR: b/l lower lobe infiltrates and small pleural effusions - ID consult appreciated: Added Mycamine - C/W Maxapine day # 7 and Linozolid day # 8 -Procalcitonin 14.4 07/01/17 5) Nephrotic Syndrome -secondary to DM nepropathy -Kidney biopsy 06/05/17: Diabetic nephropathy, nodular glomerulosclerosis, associated with aprox 40 % globally sclerosed glomeruli( calss III), 10-15 % segmentally sclerosed glomeruli, docal moderate interstitial fibrosis and mod vascular sclerosis, including marked hyaline arteriolosclerosis.NO EVIDENCE OF MONOCLONAL LIGHT OR HEAVY CHAIN-RELATED RENAL DISEASE. 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 -Renal duplex: no renal vein thrombosis -F/U HIV test 6) CHINTAN on CKD stage 4 w/ new onset of ATN - Worsening of CKD from stage 3 to stage 4 secondary to CHINTAN - Nephorologist consult appreciated: Advised to continue KEVIN inhibition and DM control. no HD for now -c/w oral bicarbonate, vit d, calcium acetate - F/U with morning CMP 7) Thrombocytopenia -may be secondary to bone marrow suppresion secondary to nephrotic syndrome. -PLt 82 -F/U CBC 8) Hypothyroidism -TSH 4, Ft4 0.7 -Econdrinologist consult appreciated: will repeat thyroid labs, ab, high prolactin could be related to not good clearance due to CHINTAN or microadenoma. MRI brain when pt stable. 9) Hyperprolactinemia -Pralactin level 95 -Endocrionologist consult suggested: will repeat thyroid labs, ab, high prolactin could be related to not good clearance due to CHINTAN or microadenoma. MRI brain when pt stable. -f/u serial prolactin levels. 10) Pressure Ulcer and TDI -Sacral region stage 2 -wound care consult appreciated 11) Hypothermia -resolved -secondary to sepsis/hypothryroidism -on admission, 2 days ago and yesterday(3 episosdes of hypothermia) -Marino esparza - Neuro consult appreciated: MRI suggested. last MRI 05/2017 no abnormality on thalamus 12) UTI ( Resolved) - on admission Initial Urine Culture: > 100,000 gram positive coci coagulase negative. Similar to previous admission - Repeat Urine Culture is negative for bacteria but now growing yeasts. - C/W Maxapine and Linozolid 13) Monoclonal Gammopathy -Bone marrow biopsy 05/05/17 hypocellular bone marrow with scattered plasma cells. no evidence of overt or advanced myelodysplasia, acute leukemia, met neoplasm or lymphoma. - Hemo-Onc consult suggested: no multiple myeloma 14) Acute diastolic CHF secondary to pulmonary edema and fluid overload -ProBNP 3500 -Echo 05/31/17 normal EF 60-65% - c/w lasix as per nephro 15) DM 2 -home meds hold -SSI -Hga1c 7.2 04/2017 16) HTN - Hydralazine 25 Q8 reduced by anaesthetic technician. To keep systolic BP 150 - Labetalol 5m IV PRN 17) Anemia -secondary to CKD/sepsis - HB: 7.4 -Transfusion 2 U today - C/W procrit 18) DVT prophylaxis -Lovenox 30 mg sc (renal dose Cr CL 18) -will discuss if DC due to thrombocytopenia 19) GI prophylaxis -patient intubated in ICU -Pantoprazol 40 mg IV
[2017-07-02] MEDS: Albuterol-Ipratrop 3 mg / 0.5 (3 ml) UD INH SCH ×4 (08:18→19:41)
--- NOTE | 2017-07-02 08:50 | CON ---
DATE: ENDOCRINOLOGY FOLLOWUP NOTE: LOCATION: In the room 425 PCU. HISTORY OF PRESENT ILLNESS: This is 66-year-old male with known history of type 2 diabetes, hypertension, presenting here with altered mental status and marked hypothermia, concomitant bilateral pleural effusions and is now endotracheally intubated with acute respiratory failure and is also being referred for endocrine evaluation because of abnormal thyroid function studies and prolactin elevations as noted. PAST MEDICAL HISTORY: History of type 2 diabetes, currently on a combination of glipizide given a 15 mg in the morning with 10 mg in the evening, history of hypertensive cardiovascular disease and dyslipidemia, history of diabetic retinopathy, polyneuropathy and nephropathy with underlying chronic kidney disease, history of generalized anxiety and depression on psychotropic medications. FAMILY HISTORY: Positive for diabetes and hypertension. SOCIAL HISTORY: The patient has supportive family. No known substance use. REVIEW OF SYSTEMS: Not possible at this time, but the chart has been reviewed and then consultants and chemistry technician's notes and management have been reviewed in detail as noted. PHYSICAL EXAMINATION: GENERAL: This is an average-built male, in no apparent distress. VITAL SIGNS: Blood pressure of 150/90, pulse of 100 beats per minute and regular, temperature 95, respirations as per the ventilator parameters. HEENT: Head normocephalic. Eyes anicteric with pink conjunctivae. Funduscopy not possible at this time. Ears, nose, and throat otherwise normal. NECK: Supple. Thyroid gland is normal in size. No carotid bruit or any cervical adenopathy. CARDIOPULMONARY: Adynamic precordium. S1, S2 is rapid and regular. LUNGS: Show scattered rhonchi. ABDOMEN: Flat, soft with positive bowel sounds. EXTREMITIES: No peripheral edema. Pulses are +2 bilaterally. LABORATORY DATA: His chemistry showed BUN of 81, sodium 142, potassium 3.6, chloride 113, CO2 of 20, glucose 190, and creatinine 4.1. His glucose ranges from 181 to 193 mg/dL. Blood glucose was 255. His prolactin level was 95 with a free T4 of 0.7 and a TSH of 7.14, and a cortisol level of 19.5. ASSESSMENT: This is a 66-year-old male with acute respiratory failure and supervening bilateral pleural effusion and concomitant uncontrolled type 2 diabetes and hypertension with underlying diabetic microvascular complications of retinopathy, polyneuropathy and nephropathy with underlying chronic kidney disease and aggressive azotemia as noted thereof. He also has possible early hypothyroidism of a peripheral type with slightly elevated TSH levels, which also could be a component of acute sick euthyroid syndrome. The elevated prolactin or the hyperprolactinemia would not be really accurate, considering the fact that this underlying chronic kidney disease prolactin clearance causing falsely elevated prolactin levels. However, only an MRI scan can fully exclude any underlying nonfunctioning pituitary macroadenoma versus an overt prolactinoma thereof. Mostly may have been some nonfunctioning macroadenomas with compression of the hypothalamic pituitary axis causing a false elevation of prolactin level, and with concomitant underlying chronic kidney disease, would expect higher elevations of the prolactin levels thereof. PLAN OF MANAGEMENT: As the patient is hemodynamically unstable at this time, we have deferred any further scanning of the brain as noted and would just monitor the prolactin level serially and observe the changes and fluctuations or elevations thereof. We will repeat the thyroid studies and obtain thyroid antibodies including a thyroid peroxidase antiglobulin levels to fully confirm and/or indicate the presence of underlying thyroid autoimmunity. No indication at this time for any kind of thyroid pharmacotherapy until we are completely certain the presence indeed of early hypothyroidism; and because of this steady, mild elevation this will not account for the so called central hypothermia. This is actually evidence of peripheral hypothyroidism. There is a very remote possibility of TSH secreting pituitary macroadenoma. We will follow and advice accordingly. Bettina Mann MD
--- NOTE | 2017-07-02 09:35 | CP.PCM.PN ---
Subjective - Date & Time of Evaluation Date of Evaluation: 07/02/17 Time of Evaluation: 09:35 - Subjective Subjective: AWAKE AND ALERT VSS RESPONDS TO VERBAL COMMANDS STILL INTUBATED AND ON THE VENT Objective - Vital Signs/Intake and Output Vital Signs (last 24 hours): Temp Pulse Resp BP Pulse Ox 97.8 F 73 17 160/71 H 99 07/02/17 08:00 07/02/17 08:00 07/02/17 08:00 07/02/17 08:00 07/02/17 08:00 Intake and Output: 07/02/17 07/02/17 06:59 18:59 Intake Total 671 Output Total 800 Balance -129 - Medications Medications: Current Medications Albuterol/Ipratropium (Duoneb 3 Mg/0.5 Mg (3 Ml) Ud) 3 ml INH RQID [facility] Last Admin: 07/02/17 08:18 Dose: 3 ml Amlodipine Besylate (Norvasc) 10 mg PO DAILY [facility] Last Admin: 07/01/17 09:13 Dose: 10 mg Bacitracin (Bacitracin Oint) 1 applic TOP TID [facility] Last Admin: 07/01/17 17:36 Dose: 1 applic Calcium Acetate (Phoslo) 2,001 mg PO WM [facility] Last Admin: 07/01/17 17:35 Dose: 2,001 mg Dextrose (Dextrose 50% Inj) 0 ml IV STAT PRN; Protocol PRN Reason: Hypoglycemia Protocol Dextrose (Glutose 15) 0 gm PO ONCE PRN; Protocol PRN Reason: Hypoglycemia Protocol Enoxaparin Sodium (Lovenox) 30 mg SC DAILY [facility] PRN Reason: Protocol Epoetin Roel (Procrit) 10,000 unit SC MWF [facility] Last Admin: 06/30/17 09:37 Dose: 10,000 unit Ergocalciferol (Drisdol 50,000 Intl Units Cap) 1 cap PO Q7D [facility] Last Admin: 07/01/17 09:01 Dose: 1 cap Furosemide (Lasix) 80 mg IV Q8 [facility] Last Admin: 07/02/17 01:51 Dose: 80 mg Glucagon (Glucagen Diagnostic Kit) 0 mg IM STAT PRN; Protocol PRN Reason: Hypoglycemia Protocol Haloperidol Lactate (Haldol) 0.5 mg IM Q6 PRN PRN Reason: Agitation Last Admin: 12/27/17 14:35 Dose: 0.5 mg Hydralazine HCl (Apresoline) 25 mg PO Q8 [facility] Last Admin: 07/02/17 01:39 Dose: 25 mg Linezolid (Zyvox 600mg/300ml D5w) 600 mg in 300 mls @ 300 mls/hr IVPB Q12 [facility] PRN Reason: Protocol Last Admin: 07/01/17 21:47 Dose: 300 mls/hr Cefepime HCl 1 gm/ Sodium (Chloride) 100 mls @ 100 mls/hr IVPB DAILY [facility] PRN Reason: Protocol Last Admin: 07/01/17 09:02 Dose: 100 mls/hr Micafungin Sodium 100 mg/ (Sodium Chloride) 100 mls @ 100 mls/hr IVPB DAILY [facility] PRN Reason: Protocol Last Admin: 07/01/17 14:50 Dose: 100 mls/hr Insulin Human Lispro (Humalog) 0 units SC ACHS [facility] PRN Reason: Protocol Last Admin: 07/01/17 21:56 Dose: Not Given Labetalol HCl (Trandate) 5 mg IVP Q6H PRN PRN Reason: Systolic Blood Pressure Levalbuterol HCl (Xopenex) 0.63 mg INH RQ8 PRN PRN Reason: Shortness of Breath Pantoprazole Sodium (Protonix Inj) 40 mg IVP DAILY [facility] Last Admin: 07/01/17 08:59 Dose: 40 mg Sodium Bicarbonate (Sodium Bicarbonate Tab) 1,300 mg PO Q8 [facility] Last Admin: 07/02/17 01:39 Dose: 1,300 mg Thiamine HCl (Vitamin B1 Tab) 100 mg PO BID [facility] Last Admin: 07/01/17 17:35 Dose: 100 mg - Labs Labs: 07/02/17 04:45 07/02/17 04:45 PT 13.7 Seconds (9.8-13.1) H 07/02/17 04:45 INR 1.2 (0.9-1.2) 07/02/17 04:45 APTT 37.2 Seconds (25.6-37.1) H 07/02/17 04:45 - Constitutional Appears: Chronically Ill - Head Exam Head Exam: ATRAUMATIC, NORMAL INSPECTION, NORMOCEPHALIC - Eye Exam Eye Exam: EOMI, Normal appearance, PERRL Pupil Exam: NORMAL ACCOMODATION, PERRL - ENT Exam ENT Exam: Mucous Membranes Moist, Normal Exam - Neck Exam Neck Exam: Full ROM, Normal Inspection. absent: Lymphadenopathy - Respiratory Exam Respiratory Exam: Clear to Ausculation Bilateral - Cardiovascular Exam Cardiovascular Exam: REGULAR RHYTHM, +S1, +S2. absent: Murmur - GI/Abdominal Exam GI & Abdominal Exam: Soft, Normal Bowel Sounds. absent: Tenderness - Rectal Exam Rectal Exam: NORMAL INSPECTION - Extremities Exam Extremities Exam: Full ROM, Normal Capillary Refill, Normal Inspection. absent : Joint Swelling, Pedal Edema - Back Exam Back Exam: NORMAL INSPECTION - Neurological Exam Neurological Exam: Alert, Awake, CN II-XII Intact, Oriented x3 - Psychiatric Exam Psychiatric exam: Normal Affect, Normal Mood - Skin Skin Exam: Dry, Intact, Normal Color, Warm Assessment and Plan - Assessment and Plan (Free Text) Assessment: RESPIRATORY FAILURE--IMPROVED PLEURAL EFFUSION RENAL FAILURE Plan: ATTEMPT TO WEAN OFF VENT
[2017-07-02] MEDS: Bacitracin OINT 15GM TOP SCH ×3 (09:37→16:22)
[2017-07-02] MEDS: EPOETIN ALFA 10,000 UNIT/ML ML SC SCH (09:44)
[2017-07-02] MEDS: Enoxaparin 30 mg Syringe SC SCH (10:02)
[2017-07-02] MEDS: Linezolid 600 mg in D5W 300 ml 600 MG/300 ML BAG IVPB SCH ×2 (10:03→20:55)
[2017-07-02] MEDS: Micafungin 100 MG in Sodium Chloride 0.9% 100 ML IVPB SCH (11:25)
--- NOTE | 2017-07-02 11:34 | CP.CCUPN ---
<Lori Magana - Last Filed: 07/02/17 15:37> CCU Subjective - Physician Review Subjective (Free Text): Patient seen and examined bedside. Patient extubated this morning. On Ventimask at 40%, breathing comfortably. He is awake, follows commands. He is no longer hypothermic. Continues to have anasarca despite high dose lasix. ABG reviewed, high PAO2: 329. Procalcitonin noted to be elevated, worsening anemia and thrombocytopenia, leukocytosis improved. Patient was seen and evaluated by Endocrinology on 07/01/17 for his hyperprolactinemia and hypothyroidism. Will monitor respiratory status closely. CCU Objective - Vital Signs / Intake & Output Vital Signs (Last 4 hours): Vital Signs Temp Pulse Resp BP Pulse Ox 07/02/17 10:00 74 16 162/67 H 99 07/02/17 09:41 71 160/73 H 07/02/17 09:39 69 160/73 H 07/02/17 09:35 160/73 H 07/02/17 08:00 97.8 F 73 17 160/71 H 99 Intake and Output (Last 8hrs): Intake & Output 07/01/17 07/02/17 07/02/17 22:59 06:59 14:59 Intake Total 443 488 420 Output Total 700 800 Balance -257 -312 420 Intake: IV 8 8 Intake, Piggyback 100 300 320 Tube Feeding 335 180 Free Water Flush 100 Output: Urine 700 800 Urethral (Salazar) 700 800 - Physical Exam Head: Positive for: Atraumatic, Normocephalic Pupils: Positive for: PERRL Nose (External): Positive for: Lesions (on nose brown scab) Respiratory/Chest: Positive for: Good Air Exchange, Decreased Breath Sounds ( clear to auscultation except for left lung base, decreased breath sounds). Negative for: Retracting, Rhonchi Cardiovascular: Positive for: Regular Rate and Rhythm, Murmurs. Negative for: Tachycardic, Bradycardic Abdomen: Positive for: Normal Bowel Sounds. Negative for: Tenderness, Distention, Peritoneal Signs Genitourinary Male: Positive for: Penile Swelling, Testicle Swelling Upper Extremity: Positive for: Edema (bilaterallly, 2+ pitting, strength 2/5) Lower Extremity: Positive for: Normal Inspection, Edema (1+ up to thigh), Other (strength 1/5). Negative for: CALF TENDERNESS, Tenderness, Erythema Neurological: Positive for: Other (awake and alert, intubated, following commands) Skin: Positive for: Warm, Dry, Other (gauze on back of left hand) Psychiatric: Positive for: Alert - Medications Active Medications: Active Medications Generic Name Dose Route Start Last Admin Trade Name Freq PRN Reason Stop Dose Admin Albuterol/Ipratropium 3 ml 06/28/17 16:00 07/02/17 08:18 Duoneb 3 Mg/0.5 Mg (3 Ml) Ud INH 3 ml RQID THOMAS Administration Amlodipine Besylate 10 mg 06/26/17 09:00 07/02/17 09:39 Norvasc PO 10 mg DAILY THOMAS Administration Bacitracin 1 applic 06/27/17 13:00 07/02/17 09:37 Bacitracin Oint TOP 1 applic TID THOMAS Administration Calcium Acetate 2,001 mg 06/24/17 18:30 07/02/17 09:42 Phoslo PO Not Given WM THOMAS Dextrose 0 ml 06/22/17 22:36 Dextrose 50% Inj IV STAT PRN Hypoglycemia Protocol Protocol Dextrose 0 gm 06/22/17 22:36 Glutose 15 PO ONCE PRN Hypoglycemia Protocol Protocol Enoxaparin Sodium 30 mg 07/02/17 09:00 07/02/17 10:02 Lovenox SC 30 mg DAILY THOMAS Administration Protocol Epoetin Roel 10,000 unit 06/23/17 13:00 07/02/17 09:44 Procrit SC 10,000 unit MWF THOMAS Administration Ergocalciferol 1 cap 06/24/17 10:00 07/01/17 09:01 Drisdol 50,000 Intl Units Cap PO 1 cap Q7D THOMAS Administration Furosemide 80 mg 06/29/17 11:00 07/02/17 09:35 Lasix IV 80 mg Q8 THOMAS Administration Glucagon 0 mg 06/22/17 22:36 Glucagen Diagnostic Kit IM STAT PRN Hypoglycemia Protocol Protocol Haloperidol Lactate 0.5 mg 06/25/17 14:45 06/25/17 14:35 Haldol IM 0.5 mg Q6 PRN Administration Agitation Hydralazine HCl 25 mg 07/02/17 01:00 07/02/17 09:41 Apresoline PO 25 mg Q8 THOMAS Administration Linezolid 600 mg in 300 mls @ 300 mls/hr 06/25/17 21:00 07/02/17 10:03 Zyvox 600mg/300ml D5w IVPB 300 mls/hr Q12 THOMAS Administration Protocol Cefepime HCl 1 gm/ Sodium 100 mls @ 100 mls/hr 06/26/17 09:00 07/01/17 09:02 Chloride IVPB 100 mls/hr DAILY THOMAS Administration Protocol Micafungin Sodium 100 mg/ 100 mls @ 100 mls/hr 07/01/17 13:45 07/02/17 11:25 Sodium Chloride IVPB 100 mls/hr DAILY THOMAS Administration Protocol Insulin Human Lispro 0 units 06/23/17 07:30 07/01/17 21:56 Humalog SC Not Given ACHS [facility] Protocol Labetalol HCl 5 mg 06/30/17 15:44 Trandate IVP Q6H PRN Systolic Blood Pressure Levalbuterol HCl 0.63 mg 06/27/17 07:56 Xopenex INH RQ8 PRN Shortness of Breath Pantoprazole Sodium 40 mg 06/23/17 09:00 07/02/17 09:50 Protonix Inj IVP 40 mg DAILY THOMAS Administration Sodium Bicarbonate 1,300 mg 06/30/17 17:00 07/02/17 09:41 Sodium Bicarbonate Tab PO 1,300 mg Q8 THOMAS Administration Thiamine HCl 100 mg 06/24/17 21:30 07/02/17 09:40 Vitamin B1 Tab PO 100 mg BID THOMAS Administration - Patient Studies Lab Studies: Microbiology Studies 06/28/17 11:05 Blood Culture - Preliminary Blood NO GROWTH AFTER 4 DAYS 06/25/17 16:51 Gram Stain - Final Body Fluid - Pleural Fluid Body Fluid Culture - Final No growth. 06/29/17 08:29 Gram Stain - Final Trachasp Sputum Culture - Preliminary Yeast Species 06/28/17 18:27 Gram Stain - Final Sputum Sputum Culture - Final Yeast Species 06/29/17 15:38 Urine Culture - Final Urine,Salazar Yeast Species Lab Studies 07/02/17 07/02/17 07/02/17 Range/Units 04:53 04:45 04:45 WBC (4.8-10.8) K/uL RBC (4.40-5.90) Mil/uL Hgb (12.0-18.0) g/dL Hct (35.0-51.0) % MCV (80.0-94.0) fl MCH (27.0-31.0) pg MCHC (33.0-37.0) g/dL RDW (11.5-14.5) % Plt Count (130-400) K/uL MPV (7.2-11.7) fl Neut % (Auto) (50.0-75.0) % Lymph % (Auto) (20.0-40.0) % [place] % (Auto) (0.0-10.0) % Eos % (Auto) (0.0-4.0) % Baso % (Auto) (0.0-2.0) % Neut # (1.8-7.0) K/uL Lymph # (1.0-4.3) K/uL [place] # (0.0-0.8) K/uL Eos # (0.0-0.7) K/uL Baso # (0.0-0.2) K/uL Neutrophils % (Manual) (42-75) % Lymphocytes % (Manual) (20-50) % Monocytes % (Manual) (0-10) % Platelet Estimate (NORMAL) Hypochromasia (manual) Poikilocytosis (manual Anisocytosis (manual) Tear Drop Cells Ovalocytes [place] Cells Schistocytes PT 13.7 H (9.8-13.1) Seconds INR 1.2 (0.9-1.2) APTT 37.2 H (25.6-37.1) Seconds pCO2 35 (35-45) mm/Hg pO2 329 H (80-100) mm/Hg HCO3 23.3 (21-28) mmol/L ABG pH 7.41 (7.35-7.45) ABG Total CO2 23.3 (22-28) mmol/L ABG O2 Saturation 99.8 H (95-98) % ABG O2 Content 12.1 L (15-23) ML/dL ABG Base Excess -2.1 L (-2.0-3.0) mmol/L ABG Hemoglobin 8.2 L (11.7-17.4) g/dL ABG Carboxyhemoglobin 1.1 (0.5-1.5) % POC ABG HHb (Measured) 0.2 (0.0-5.0) % ABG Methemoglobin 1.3 (0.0-3.0) % ABG O2 Capacity 12.1 L (16-24) mL/dL Andry Test Yes A-a O2 Difference -159.0 mm/Hg Hgb O2 Saturation 97.4 (95.0-98.0) % Vent Mode Prvc ac Mechanical Rate 16 FiO2 30.0 % Tidal Volume 500 PEEP 5 Sodium (132-148) mmol/l Potassium (3.6-5.0) MMOL/L Chloride (98-107) mmol/L Carbon Dioxide (22-30) mmol/L Anion Gap (10-20) BUN (9-20) mg/dl Creatinine (0.8-1.5) mg/dl Est GFR ( Amer) Est GFR (Non-Af Amer) POC Glucose (mg/dL) (65-110) mg/dL Random Glucose (75-110) mg/dL Lactic Acid (0.7-2.1) MMOL/L Calcium (8.4-10.2) mg/dL Ionized Calcium Phosphorus (2.5-4.5) mg/dl Magnesium (1.6-2.3) MG/DL Total Bilirubin (0.2-1.3) mg/dl AST (17-59) U/L ALT (21-72) U/L Alkaline Phosphatase (38-126) U/L Total Protein (6.3-8.2) G/DL Albumin (3.5-5.0) g/dL Globulin (2.2-3.9) gm/dL Albumin/Globulin Ratio (1.0-2.1) Procalcitonin (0.19-0.49) NG/ML Free T4 0.73 L (0.78-2.19) ng/dL Thyroxine (T4) (5.5-11.0) ug/dl TSH 3rd Generation (0.46-4.68) mIU/ML Cortisol AM Sample (4.46-22.7) ug/dL 07/02/17 07/02/17 07/02/17 Range/Units 04:45 04:45 04:45 WBC 11.0 H (4.8-10.8) K/uL RBC 2.40 L (4.40-5.90) Mil/uL Hgb 7.4 L (12.0-18.0) g/dL Hct 22.7 L (35.0-51.0) % MCV 94.4 H (80.0-94.0) fl MCH 30.9 (27.0-31.0) pg MCHC 32.8 L (33.0-37.0) g/dL RDW 17.4 H (11.5-14.5) % Plt Count 82 L D (130-400) K/uL MPV 11.0 (7.2-11.7) fl Neut % (Auto) 88.5 H (50.0-75.0) % Lymph % (Auto) 7.0 L (20.0-40.0) % [place] % (Auto) 3.4 (0.0-10.0) % Eos % (Auto) 0.8 (0.0-4.0) % Baso % (Auto) 0.3 (0.0-2.0) % Neut # 9.8 H (1.8-7.0) K/uL Lymph # 0.8 L (1.0-4.3) K/uL [place] # 0.4 (0.0-0.8) K/uL Eos # 0.1 (0.0-0.7) K/uL Baso # 0.0 (0.0-0.2) K/uL Neutrophils % (Manual) (42-75) % Lymphocytes % (Manual) (20-50) % Monocytes % (Manual) (0-10) % Platelet Estimate (NORMAL) Hypochromasia (manual) Poikilocytosis (manual Anisocytosis (manual) Tear Drop Cells Ovalocytes Jude Cells Schistocytes PT (9.8-13.1) Seconds INR (0.9-1.2) APTT (25.6-37.1) Seconds pCO2 (35-45) mm/Hg pO2 (80-100) mm/Hg HCO3 (21-28) mmol/L ABG pH (7.35-7.45) ABG Total CO2 (22-28) mmol/L ABG O2 Saturation (95-98) % ABG O2 Content (15-23) ML/dL ABG Base Excess (-2.0-3.0) mmol/L ABG Hemoglobin (11.7-17.4) g/dL ABG Carboxyhemoglobin (0.5-1.5) % POC ABG HHb (Measured) (0.0-5.0) % ABG Methemoglobin (0.0-3.0) % ABG O2 Capacity (16-24) mL/dL Andry Test A-a O2 Difference mm/Hg Hgb O2 Saturation (95.0-98.0) % Vent Mode Mechanical Rate FiO2 % Tidal Volume PEEP Sodium 145 (132-148) mmol/l Potassium 3.6 (3.6-5.0) MMOL/L Chloride 111 H (98-107) mmol/L Carbon Dioxide 22 (22-30) mmol/L Anion Gap 16 (10-20) BUN 86 H (9-20) mg/dl Creatinine 4.2 H (0.8-1.5) mg/dl Est GFR ( Amer) 17 Est GFR (Non-Af Amer) 14 POC Glucose (mg/dL) (65-110) mg/dL Random Glucose 197 H (75-110) mg/dL Lactic Acid 0.8 (0.7-2.1) MMOL/L Calcium 8.9 (8.4-10.2) mg/dL Ionized Calcium Phosphorus 7.6 H (2.5-4.5) mg/dl Magnesium 2.5 H (1.6-2.3) MG/DL Total Bilirubin 0.3 (0.2-1.3) mg/dl AST 26 (17-59) U/L ALT 61 (21-72) U/L Alkaline Phosphatase 236 H (38-126) U/L Total Protein 5.5 L (6.3-8.2) G/DL Albumin 2.6 L (3.5-5.0) g/dL Globulin 2.9 (2.2-3.9) gm/dL Albumin/Globulin Ratio 0.9 L (1.0-2.1) Procalcitonin (0.19-0.49) NG/ML Free T4 (0.78-2.19) ng/dL Thyroxine (T4) 4.33 L (5.5-11.0) ug/dl TSH 3rd Generation 5.04 H (0.46-4.68) mIU/ML Cortisol AM Sample (4.46-22.7) ug/dL 07/02/17 07/01/17 07/01/17 Range/Units 04:37 21:55 17:38 WBC (4.8-10.8) K/uL RBC (4.40-5.90) Mil/uL Hgb (12.0-18.0) g/dL Hct (35.0-51.0) % MCV (80.0-94.0) fl MCH (27.0-31.0) pg MCHC (33.0-37.0) g/dL RDW (11.5-14.5) % Plt Count (130-400) K/uL MPV (7.2-11.7) fl Neut % (Auto) (50.0-75.0) % Lymph % (Auto) (20.0-40.0) % [place] % (Auto) (0.0-10.0) % Eos % (Auto) (0.0-4.0) % Baso % (Auto) (0.0-2.0) % Neut # (1.8-7.0) K/uL Lymph # (1.0-4.3) K/uL [place] # (0.0-0.8) K/uL Eos # (0.0-0.7) K/uL Baso # (0.0-0.2) K/uL Neutrophils % (Manual) (42-75) % Lymphocytes % (Manual) (20-50) % Monocytes % (Manual) (0-10) % Platelet Estimate (NORMAL) Hypochromasia (manual) Poikilocytosis (manual Anisocytosis (manual) Tear Drop Cells Ovalocytes Jude Cells Schistocytes PT (9.8-13.1) Seconds INR (0.9-1.2) APTT (25.6-37.1) Seconds pCO2 (35-45) mm/Hg pO2 (80-100) mm/Hg HCO3 (21-28) mmol/L ABG pH (7.35-7.45) ABG Total CO2 (22-28) mmol/L ABG O2 Saturation (95-98) % ABG O2 Content (15-23) ML/dL ABG Base Excess (-2.0-3.0) mmol/L ABG Hemoglobin (11.7-17.4) g/dL ABG Carboxyhemoglobin (0.5-1.5) % POC ABG HHb (Measured) (0.0-5.0) % ABG Methemoglobin (0.0-3.0) % ABG O2 Capacity (16-24) mL/dL Andry Test A-a O2 Difference mm/Hg Hgb O2 Saturation (95.0-98.0) % Vent Mode Mechanical Rate FiO2 % Tidal Volume PEEP Sodium (132-148) mmol/l Potassium (3.6-5.0) MMOL/L Chloride (98-107) mmol/L Carbon Dioxide (22-30) mmol/L Anion Gap (10-20) BUN (9-20) mg/dl Creatinine (0.8-1.5) mg/dl Est GFR ( Amer) Est GFR (Non-Af Amer) POC Glucose (mg/dL) 202 H 154 H 193 H (65-110) mg/dL Random Glucose (75-110) mg/dL Lactic Acid (0.7-2.1) MMOL/L Calcium (8.4-10.2) mg/dL Ionized Calcium Phosphorus (2.5-4.5) mg/dl Magnesium (1.6-2.3) MG/DL Total Bilirubin (0.2-1.3) mg/dl AST (17-59) U/L ALT (21-72) U/L Alkaline Phosphatase (38-126) U/L Total Protein (6.3-8.2) G/DL Albumin (3.5-5.0) g/dL Globulin (2.2-3.9) gm/dL Albumin/Globulin Ratio (1.0-2.1) Procalcitonin (0.19-0.49) NG/ML Free T4 (0.78-2.19) ng/dL Thyroxine (T4) (5.5-11.0) ug/dl TSH 3rd Generation (0.46-4.68) mIU/ML Cortisol AM Sample (4.46-22.7) ug/dL 07/01/17 07/01/17 06/29/17 Range/Units 15:05 05:15 06:30 WBC (4.8-10.8) K/uL RBC (4.40-5.90) Mil/uL Hgb (12.0-18.0) g/dL Hct (35.0-51.0) % MCV (80.0-94.0) fl MCH (27.0-31.0) pg MCHC (33.0-37.0) g/dL RDW (11.5-14.5) % Plt Count (130-400) K/uL MPV (7.2-11.7) fl Neut % (Auto) (50.0-75.0) % Lymph % (Auto) (20.0-40.0) % [place] % (Auto) (0.0-10.0) % Eos % (Auto) (0.0-4.0) % Baso % (Auto) (0.0-2.0) % Neut # (1.8-7.0) K/uL Lymph # (1.0-4.3) K/uL [place] # (0.0-0.8) K/uL Eos # (0.0-0.7) K/uL Baso # (0.0-0.2) K/uL Neutrophils % (Manual) 96 H (42-75) % Lymphocytes % (Manual) 2 L (20-50) % Monocytes % (Manual) 2 (0-10) % Platelet Estimate Decreased L (NORMAL) Hypochromasia (manual) Slight Poikilocytosis (manual Moderate Anisocytosis (manual) Slight Tear Drop Cells Slight Ovalocytes Slight Jude Cells Moderate Schistocytes Slight PT (9.8-13.1) Seconds INR (0.9-1.2) APTT (25.6-37.1) Seconds pCO2 (35-45) mm/Hg pO2 (80-100) mm/Hg HCO3 (21-28) mmol/L ABG pH (7.35-7.45) ABG Total CO2 (22-28) mmol/L ABG O2 Saturation (95-98) % ABG O2 Content (15-23) ML/dL ABG Base Excess (-2.0-3.0) mmol/L ABG Hemoglobin (11.7-17.4) g/dL ABG Carboxyhemoglobin (0.5-1.5) % POC ABG HHb (Measured) (0.0-5.0) % ABG Methemoglobin (0.0-3.0) % ABG O2 Capacity (16-24) mL/dL Andry Test A-a O2 Difference mm/Hg Hgb O2 Saturation (95.0-98.0) % Vent Mode Mechanical Rate FiO2 % Tidal Volume PEEP Sodium (132-148) mmol/l Potassium (3.6-5.0) MMOL/L Chloride (98-107) mmol/L Carbon Dioxide (22-30) mmol/L Anion Gap (10-20) BUN (9-20) mg/dl Creatinine (0.8-1.5) mg/dl Est GFR ( Amer) Est GFR (Non-Af Amer) POC Glucose (mg/dL) (65-110) mg/dL Random Glucose (75-110) mg/dL Lactic Acid (0.7-2.1) MMOL/L Calcium (8.4-10.2) mg/dL Ionized Calcium Phosphorus (2.5-4.5) mg/dl Magnesium (1.6-2.3) MG/DL Total Bilirubin (0.2-1.3) mg/dl AST (17-59) U/L ALT (21-72) U/L Alkaline Phosphatase (38-126) U/L Total Protein (6.3-8.2) G/DL Albumin (3.5-5.0) g/dL Globulin (2.2-3.9) gm/dL Albumin/Globulin Ratio (1.0-2.1) Procalcitonin 14.44 H (0.19-0.49) NG/ML Free T4 (0.78-2.19) ng/dL Thyroxine (T4) (5.5-11.0) ug/dl TSH 3rd Generation (0.46-4.68) mIU/ML Cortisol AM Sample 19.5 (4.46-22.7) ug/dL 06/28/17 Range/Units 13:49 WBC (4.8-10.8) K/uL RBC (4.40-5.90) Mil/uL Hgb (12.0-18.0) g/dL Hct (35.0-51.0) % MCV (80.0-94.0) fl MCH (27.0-31.0) pg MCHC (33.0-37.0) g/dL RDW (11.5-14.5) % Plt Count (130-400) K/uL MPV (7.2-11.7) fl Neut % (Auto) (50.0-75.0) % Lymph % (Auto) (20.0-40.0) % [place] % (Auto) (0.0-10.0) % Eos % (Auto) (0.0-4.0) % Baso % (Auto) (0.0-2.0) % Neut # (1.8-7.0) K/uL Lymph # (1.0-4.3) K/uL [place] # (0.0-0.8) K/uL Eos # (0.0-0.7) K/uL Baso # (0.0-0.2) K/uL Neutrophils % (Manual) (42-75) % Lymphocytes % (Manual) (20-50) % Monocytes % (Manual) (0-10) % Platelet Estimate (NORMAL) Hypochromasia (manual) Poikilocytosis (manual Anisocytosis (manual) Tear Drop Cells Ovalocytes Jude Cells Schistocytes PT (9.8-13.1) Seconds INR (0.9-1.2) APTT (25.6-37.1) Seconds pCO2 (35-45) mm/Hg pO2 (80-100) mm/Hg HCO3 (21-28) mmol/L ABG pH (7.35-7.45) ABG Total CO2 (22-28) mmol/L ABG O2 Saturation (95-98) % ABG O2 Content (15-23) ML/dL ABG Base Excess (-2.0-3.0) mmol/L ABG Hemoglobin (11.7-17.4) g/dL ABG Carboxyhemoglobin (0.5-1.5) % POC ABG HHb (Measured) (0.0-5.0) % ABG Methemoglobin (0.0-3.0) % ABG O2 Capacity (16-24) mL/dL Andry Test A-a O2 Difference mm/Hg Hgb O2 Saturation (95.0-98.0) % Vent Mode Mechanical Rate FiO2 % Tidal Volume PEEP Sodium (132-148) mmol/l Potassium (3.6-5.0) MMOL/L Chloride (98-107) mmol/L Carbon Dioxide (22-30) mmol/L Anion Gap (10-20) BUN (9-20) mg/dl Creatinine (0.8-1.5) mg/dl Est GFR ( Amer) Est GFR (Non-Af Amer) POC Glucose (mg/dL) (65-110) mg/dL Random Glucose (75-110) mg/dL Lactic Acid (0.7-2.1) MMOL/L Calcium (8.4-10.2) mg/dL Ionized Calcium TNP Phosphorus (2.5-4.5) mg/dl Magnesium (1.6-2.3) MG/DL Total Bilirubin (0.2-1.3) mg/dl AST (17-59) U/L ALT (21-72) U/L Alkaline Phosphatase (38-126) U/L Total Protein (6.3-8.2) G/DL Albumin (3.5-5.0) g/dL Globulin (2.2-3.9) gm/dL Albumin/Globulin Ratio (1.0-2.1) Procalcitonin (0.19-0.49) NG/ML Free T4 (0.78-2.19) ng/dL Thyroxine (T4) (5.5-11.0) ug/dl TSH 3rd Generation (0.46-4.68) mIU/ML Cortisol AM Sample (4.46-22.7) ug/dL Laboratory Results - last 24 hr 06/28/17 06/29/17 07/01/17 13:49 06:30 05:15 WBC RBC Hgb Hct MCV MCH MCHC RDW Plt Count MPV Neut % (Auto) Lymph % (Auto) [place] % (Auto) Eos % (Auto) Baso % (Auto) Neut # Lymph # [place] # Eos # Baso # Neutrophils % (Manual) 96 H Lymphocytes % (Manual) 2 L Monocytes % (Manual) 2 Platelet Estimate Decreased L Hypochromasia (manual) Slight Poikilocytosis (manual Moderate Anisocytosis (manual) Slight Tear Drop Cells Slight Ovalocytes Slight [place] Cells Moderate Schistocytes Slight PT INR APTT pCO2 pO2 HCO3 ABG pH ABG Total CO2 ABG O2 Saturation ABG O2 Content ABG Base Excess ABG Hemoglobin ABG Carboxyhemoglobin POC ABG HHb (Measured) ABG Methemoglobin ABG O2 Capacity Andry Test A-a O2 Difference Hgb O2 Saturation Vent Mode Mechanical Rate FiO2 Tidal Volume PEEP Sodium Potassium Chloride Carbon Dioxide Anion Gap BUN Creatinine Est GFR ( Amer) Est GFR (Non-Af Amer) POC Glucose (mg/dL) Random Glucose Lactic Acid Calcium Ionized Calcium TNP Phosphorus Magnesium Total Bilirubin AST ALT Alkaline Phosphatase Total Protein Albumin Globulin Albumin/Globulin Ratio Procalcitonin Free T4 Thyroxine (T4) TSH 3rd Generation Cortisol AM Sample 19.5 07/01/17 07/01/17 07/01/17 15:05 17:38 21:55 WBC RBC Hgb Hct MCV MCH MCHC RDW Plt Count MPV Neut % (Auto) Lymph % (Auto) [place] % (Auto) Eos % (Auto) Baso % (Auto) Neut # Lymph # [place] # Eos # Baso # Neutrophils % (Manual) Lymphocytes % (Manual) Monocytes % (Manual) Platelet Estimate Hypochromasia (manual) Poikilocytosis (manual Anisocytosis (manual) Tear Drop Cells Ovalocytes [place] Cells Schistocytes PT INR APTT pCO2 pO2 HCO3 ABG pH ABG Total CO2 ABG O2 Saturation ABG O2 Content ABG Base Excess ABG Hemoglobin ABG Carboxyhemoglobin POC ABG HHb (Measured) ABG Methemoglobin ABG O2 Capacity Andry Test A-a O2 Difference Hgb O2 Saturation Vent Mode Mechanical Rate FiO2 Tidal Volume PEEP Sodium Potassium Chloride Carbon Dioxide Anion Gap BUN Creatinine Est GFR ( Amer) Est GFR (Non-Af Amer) POC Glucose (mg/dL) 193 H 154 H Random Glucose Lactic Acid Calcium Ionized Calcium Phosphorus Magnesium Total Bilirubin AST ALT Alkaline Phosphatase Total Protein Albumin Globulin Albumin/Globulin Ratio Procalcitonin 14.44 H Free T4 Thyroxine (T4) TSH 3rd Generation Cortisol AM Sample 07/02/17 07/02/17 07/02/17 04:37 04:45 04:45 WBC 11.0 H RBC 2.40 L Hgb 7.4 L Hct 22.7 L MCV 94.4 H MCH 30.9 MCHC 32.8 L RDW 17.4 H Plt Count 82 L D MPV 11.0 Neut % (Auto) 88.5 H Lymph % (Auto) 7.0 L [place] % (Auto) 3.4 Eos % (Auto) 0.8 Baso % (Auto) 0.3 Neut # 9.8 H Lymph # 0.8 L [place] # 0.4 Eos # 0.1 Baso # 0.0 Neutrophils % (Manual) Lymphocytes % (Manual) Monocytes % (Manual) Platelet Estimate Hypochromasia (manual) Poikilocytosis (manual Anisocytosis (manual) Tear Drop Cells Ovalocytes Jude Cells Schistocytes PT INR APTT pCO2 pO2 HCO3 ABG pH ABG Total CO2 ABG O2 Saturation ABG O2 Content ABG Base Excess ABG Hemoglobin ABG Carboxyhemoglobin POC ABG HHb (Measured) ABG Methemoglobin ABG O2 Capacity Andry Test A-a O2 Difference Hgb O2 Saturation Vent Mode Mechanical Rate FiO2 Tidal Volume PEEP Sodium 145 Potassium 3.6 Chloride 111 H Carbon Dioxide 22 Anion Gap 16 BUN 86 H Creatinine 4.2 H Est GFR ( Amer) 17 Est GFR (Non-Af Amer) 14 POC Glucose (mg/dL) 202 H Random Glucose 197 H Lactic Acid Calcium 8.9 Ionized Calcium Phosphorus 7.6 H Magnesium 2.5 H Total Bilirubin 0.3 AST 26 ALT 61 Alkaline Phosphatase 236 H Total Protein 5.5 L Albumin 2.6 L Globulin 2.9 Albumin/Globulin Ratio 0.9 L Procalcitonin Free T4 Thyroxine (T4) 4.33 L TSH 3rd Generation 5.04 H Cortisol AM Sample 07/02/17 07/02/17 07/02/17 04:45 04:45 04:45 WBC RBC Hgb Hct MCV MCH MCHC RDW Plt Count MPV Neut % (Auto) Lymph % (Auto) [place] % (Auto) Eos % (Auto) Baso % (Auto) Neut # Lymph # [place] # Eos # Baso # Neutrophils % (Manual) Lymphocytes % (Manual) Monocytes % (Manual) Platelet Estimate Hypochromasia (manual) Poikilocytosis (manual Anisocytosis (manual) Tear Drop Cells Ovalocytes Jude Cells Schistocytes PT 13.7 H INR 1.2 APTT 37.2 H pCO2 pO2 HCO3 ABG pH ABG Total CO2 ABG O2 Saturation ABG O2 Content ABG Base Excess ABG Hemoglobin ABG Carboxyhemoglobin POC ABG HHb (Measured) ABG Methemoglobin ABG O2 Capacity Andry Test A-a O2 Difference Hgb O2 Saturation Vent Mode Mechanical Rate FiO2 Tidal Volume PEEP Sodium Potassium Chloride Carbon Dioxide Anion Gap BUN Creatinine Est GFR ( Amer) Est GFR (Non-Af Amer) POC Glucose (mg/dL) Random Glucose Lactic Acid 0.8 Calcium Ionized Calcium Phosphorus Magnesium Total Bilirubin AST ALT Alkaline Phosphatase Total Protein Albumin Globulin Albumin/Globulin Ratio Procalcitonin Free T4 0.73 L Thyroxine (T4) TSH 3rd Generation Cortisol AM Sample 07/02/17 04:53 WBC RBC Hgb Hct MCV MCH MCHC RDW Plt Count MPV Neut % (Auto) Lymph % (Auto) [place] % (Auto) Eos % (Auto) Baso % (Auto) Neut # Lymph # [place] # Eos # Baso # Neutrophils % (Manual) Lymphocytes % (Manual) Monocytes % (Manual) Platelet Estimate Hypochromasia (manual) Poikilocytosis (manual Anisocytosis (manual) Tear Drop Cells Ovalocytes Jude Cells Schistocytes PT INR APTT pCO2 35 pO2 329 H HCO3 23.3 ABG pH 7.41 ABG Total CO2 23.3 ABG O2 Saturation 99.8 H ABG O2 Content 12.1 L ABG Base Excess -2.1 L ABG Hemoglobin 8.2 L ABG Carboxyhemoglobin 1.1 POC ABG HHb (Measured) 0.2 ABG Methemoglobin 1.3 ABG O2 Capacity 12.1 L Andry Test Yes A-a O2 Difference -159.0 Hgb O2 Saturation 97.4 Vent Mode Prvc ac Mechanical Rate 16 FiO2 30.0 Tidal Volume 500 PEEP 5 Sodium Potassium Chloride Carbon Dioxide Anion Gap BUN Creatinine Est GFR ( Amer) Est GFR (Non-Af Amer) POC Glucose (mg/dL) Random Glucose Lactic Acid Calcium Ionized Calcium Phosphorus Magnesium Total Bilirubin AST ALT Alkaline Phosphatase Total Protein Albumin Globulin Albumin/Globulin Ratio Procalcitonin Free T4 Thyroxine (T4) TSH 3rd Generation Cortisol AM Sample Fingerstick Blood Sugar Results: 202 Assessment/Plan - Assessment and Plan (Free Text) Assessment: Assessment: 66 year old male with PMH of HTN, CKD, nephrotic syndrome, chronic left sided pleural effusion admitted for hypothermia, AMS with acute hypercapnia respiratory failure on 06/22. Subsequently developed acute hypoxic respiratory failure, cardiac arrest required intubation on 06/29/17. His acute hypoxic respiratory failure has resolved and he was successfully extubated this morning. Breathing comfortably on ventimask at 40% FIO2. His Procalcitonin was noted to be elevated at 14.4, leukocytosis continues to improve now 11.0. He has worsening of anemia hg now 7.4 down from 8.5, worsening thrombocytopenia , platelets 82 down from 108, Coags reviewed. PT/PTT elevated, INR 1.2. Renal function has been stable. His elevated prolactin level may be secondary to undiagnosed seizure disorder, MRI is pending. Endocrinology on consult for high prolactin and thyroid values. Cultures +yeast : urine/blood/sputum #Healthcare associated pneumonia #UTI #Chronic/Recurrent Pleural Effusion #Anasarca #Thrombocytopenia, acute #Acute Renal Failure #Nephrotic Syndrome in setting of CKD #Hypertension #Anemia, chronic #Diabetes Mellitus, type 2 #Prophylaxis DVT/GI Plan: -Monitor respiratory status closely -Continue with IV antibiotics/antifungal as per ID : Maxipime/Linezolid/Mycamine -Continue with diuresis, consider albumin infusion if albumin continues to drop -follow up HIV -Monitor In/Outs -Pantoprazole/Lovenox for DVT ppx Case d/w <Ervin Mata - Last Filed: 07/02/17 17:35> CCU Subjective - Physician Review Subjective (Free Text): Attestation: Patient seen and examined at the bedside with Resident Dr. Tita Magana; and I agree with his outline of plans and management documented above as discussed on AM rounds reflecting my review of all applicable clinical data, and participation in the care of the patient throughout the day in ICU; July 02, 2017.
[2017-07-02] MEDS: Cefepime 1 GM in Sodium Chloride 0.9% 100 ML IVPB SCH (12:09)
[2017-07-02] MEDS: Insulin Lispro (humaLOG) 100 Units/ml Inj SC SCH ×3 (12:13→21:25)
--- NOTE | 2017-07-02 12:41 | CP.PCM.PN ---
Subjective - Date & Time of Evaluation Date of Evaluation: 07/02/17 Time of Evaluation: 10:00 - Subjective Subjective: self extubated awake / confused Objective - Vital Signs/Intake and Output Vital Signs (last 24 hours): Temp Pulse Resp BP Pulse Ox 97.7 F 78 22 151/62 H 96 07/02/17 12:00 07/02/17 12:00 07/02/17 12:00 07/02/17 12:00 07/02/17 12:00 Intake and Output: 07/02/17 07/02/17 06:59 18:59 Intake Total 671 520 Output Total 800 Balance -129 520 - Medications Medications: Current Medications Albuterol/Ipratropium (Duoneb 3 Mg/0.5 Mg (3 Ml) Ud) 3 ml INH RQID [facility] Last Admin: 07/02/17 11:41 Dose: 3 ml Amlodipine Besylate (Norvasc) 10 mg PO DAILY [facility] Last Admin: 07/02/17 09:39 Dose: 10 mg Bacitracin (Bacitracin Oint) 1 applic TOP TID [facility] Last Admin: 07/02/17 12:12 Dose: 1 applic Calcium Acetate (Phoslo) 2,001 mg PO WM [facility] Last Admin: 07/02/17 09:42 Dose: Not Given Dextrose (Dextrose 50% Inj) 0 ml IV STAT PRN; Protocol PRN Reason: Hypoglycemia Protocol Dextrose (Glutose 15) 0 gm PO ONCE PRN; Protocol PRN Reason: Hypoglycemia Protocol Enoxaparin Sodium (Lovenox) 30 mg SC DAILY [facility] PRN Reason: Protocol Last Admin: 07/02/17 10:02 Dose: 30 mg Epoetin Roel (Procrit) 10,000 unit SC MWF [facility] Last Admin: 07/02/17 09:44 Dose: 10,000 unit Ergocalciferol (Drisdol 50,000 Intl Units Cap) 1 cap PO Q7D [facility] Last Admin: 07/01/17 09:01 Dose: 1 cap Furosemide (Lasix) 80 mg IV Q8 [facility] Last Admin: 07/02/17 09:35 Dose: 80 mg Glucagon (Glucagen Diagnostic Kit) 0 mg IM STAT PRN; Protocol PRN Reason: Hypoglycemia Protocol Haloperidol Lactate (Haldol) 0.5 mg IM Q6 PRN PRN Reason: Agitation Last Admin: 06/25/17 14:35 Dose: 0.5 mg Hydralazine HCl (Apresoline) 25 mg PO Q8 [facility] Last Admin: 07/02/17 09:41 Dose: 25 mg Linezolid (Zyvox 600mg/300ml D5w) 600 mg in 300 mls @ 300 mls/hr IVPB Q12 [facility] PRN Reason: Protocol Last Admin: 07/02/17 10:03 Dose: 300 mls/hr Cefepime HCl 1 gm/ Sodium (Chloride) 100 mls @ 100 mls/hr IVPB DAILY [facility] PRN Reason: Protocol Last Admin: 07/02/17 12:09 Dose: 100 mls/hr Micafungin Sodium 100 mg/ (Sodium Chloride) 100 mls @ 100 mls/hr IVPB DAILY [facility] PRN Reason: Protocol Last Admin: 07/02/17 11:25 Dose: 100 mls/hr Insulin Human Lispro (Humalog) 0 units SC ACHS [facility] PRN Reason: Protocol Last Admin: 07/02/17 12:13 Dose: 3 units Labetalol HCl (Trandate) 5 mg IVP Q6H PRN PRN Reason: Systolic Blood Pressure Levalbuterol HCl (Xopenex) 0.63 mg INH RQ8 PRN PRN Reason: Shortness of Breath Pantoprazole Sodium (Protonix Inj) 40 mg IVP DAILY [facility] Last Admin: 07/02/17 09:50 Dose: 40 mg Sodium Bicarbonate (Sodium Bicarbonate Tab) 1,300 mg PO Q8 [facility] Last Admin: 07/02/17 09:41 Dose: 1,300 mg Thiamine HCl (Vitamin B1 Tab) 100 mg PO BID [facility] Last Admin: 07/02/17 09:40 Dose: 100 mg - Labs Labs: 07/02/17 04:45 07/02/17 04:45 PT 13.7 Seconds (9.8-13.1) H 07/02/17 04:45 INR 1.2 (0.9-1.2) 07/02/17 04:45 APTT 37.2 Seconds (25.6-37.1) H 07/02/17 04:45 - Constitutional Appears: Confused, Chronically Ill - Head Exam Head Exam: NORMOCEPHALIC - Eye Exam Eye Exam: PERRL - ENT Exam ENT Exam: Mucous Membranes Dry - Neck Exam Neck Exam: absent: Lymphadenopathy - Respiratory Exam Respiratory Exam: Decreased Breath Sounds, Prolonged Expiratory Phase, Rhonchi - Cardiovascular Exam Cardiovascular Exam: REGULAR RHYTHM, +S1, +S2 - GI/Abdominal Exam GI & Abdominal Exam: Distended, Soft. absent: Tenderness - Rectal Exam Rectal Exam: Deferred - Exam Exam: NORMAL INSPECTION Assessment and Plan (1) Acute renal failure Status: Acute (2) Altered mental status Status: Acute (3) CHF (congestive heart failure) Status: Acute (4) DM2 (diabetes mellitus, type 2) Status: Acute (5) HCAP (healthcare-associated pneumonia) Status: Acute (6) Pleural effusion Status: Acute (7) SIRS (systemic inflammatory response syndrome) Status: Acute (8) Sepsis Status: Acute (9) Acute kidney injury superimposed on chronic kidney disease Status: Acute (10) Alcohol abuse Status: Acute (11) Anasarca Status: Acute (12) Anemia of renal disease Status: Acute (13) Bilateral lower extremity edema Status: Acute
--- NOTE | 2017-07-02 13:59 | RAD ---
HISTORY: Intubated. Portable study 04:39. COMPARISON: July 01, 2017. FINDINGS: LUNGS: Interval improvement in pulmonary edema. PLEURA: Persistent bilateral pleural effusions left larger than right. CARDIOVASCULAR: No radiographic findings to suggest acute or significant cardiovascular disease. OSSEOUS STRUCTURES: No significant abnormalities. VISUALIZED UPPER ABDOMEN: Normal. OTHER FINDINGS: Stable in satisfactory position a nasogastric tube and endotracheal tube. IMPRESSION: Improving pulmonary edema. Otherwise no interval change.
--- NOTE | 2017-07-02 17:34 | PCM.PROC ---
Procedures Attestation:: I certify that I have explained the specified Operation(s) or Procedure(s), risks, benefits and reasonable alternatives to the Patient and/or other person responsible. The opportunity was given to ask questions and all questions answered - Extubation Clinical Parameters: Resolution/Stabilization of disease process, Hemodynamically Stable, Intact Cough/Gag Reflex, Spontaneous Respirations, Acceptable Vent Settings (FIO2<50%, PEEP<8, PaO2>75, pH>7.25) Weaning Criteria Met: Yes General Weaning Approaches: Pressure Support Ventilation (PSV) Weaning, Spontaneous breathing trials and use of T-Piece Patient Condition: Patient has been successfully extubated and assessed Oxygen Therapy: O2 via Venti Mask Patient Tolerated Procedure: Well
--- NOTE | 2017-07-02 21:14 | CP.PCM.PN ---
Subjective - Date & Time of Evaluation Date of Evaluation: 07/02/17 Time of Evaluation: 19:15 - Subjective Subjective: Patient extubated earlier today; Objective - Vital Signs/Intake and Output Vital Signs (last 24 hours): Temp Pulse Resp BP Pulse Ox 94.3 F L 66 25 H 133/54 L 99 07/02/17 16:00 07/02/17 18:00 07/02/17 18:00 07/02/17 18:00 07/02/17 18:00 Intake and Output: 07/02/17 07/03/17 18:59 06:59 Intake Total 641 Output Total 1601 Balance -960 - Medications Medications: Current Medications Albuterol/Ipratropium (Duoneb 3 Mg/0.5 Mg (3 Ml) Ud) 3 ml INH RQID [facility] Last Admin: 07/02/17 19:41 Dose: 3 ml Amlodipine Besylate (Norvasc) 10 mg PO DAILY [facility] Last Admin: 07/02/17 09:39 Dose: 10 mg Bacitracin (Bacitracin Oint) 1 applic TOP TID [facility] Last Admin: 07/02/17 16:22 Dose: 1 applic Calcium Acetate (Phoslo) 2,001 mg PO WM [facility] Last Admin: 07/02/17 18:08 Dose: Not Given Dextrose (Dextrose 50% Inj) 0 ml IV STAT PRN; Protocol PRN Reason: Hypoglycemia Protocol Dextrose (Glutose 15) 0 gm PO ONCE PRN; Protocol PRN Reason: Hypoglycemia Protocol Enoxaparin Sodium (Lovenox) 30 mg SC DAILY [facility] PRN Reason: Protocol Last Admin: 07/02/17 10:02 Dose: 30 mg Epoetin Roel (Procrit) 10,000 unit SC MWF [facility] Last Admin: 07/02/17 09:44 Dose: 10,000 unit Ergocalciferol (Drisdol 50,000 Intl Units Cap) 1 cap PO Q7D [facility] Last Admin: 07/01/17 09:01 Dose: 1 cap Furosemide (Lasix) 80 mg IV Q8 [facility] Last Admin: 07/02/17 16:21 Dose: 80 mg Glucagon (Glucagen Diagnostic Kit) 0 mg IM STAT PRN; Protocol PRN Reason: Hypoglycemia Protocol Hydralazine HCl (Apresoline) 25 mg PO Q8 [facility] Last Admin: 07/02/17 16:22 Dose: 25 mg Linezolid (Zyvox 600mg/300ml D5w) 600 mg in 300 mls @ 300 mls/hr IVPB Q12 [facility] PRN Reason: Protocol Last Admin: 07/02/17 20:55 Dose: 300 mls/hr Cefepime HCl 1 gm/ Sodium (Chloride) 100 mls @ 100 mls/hr IVPB DAILY [facility] PRN Reason: Protocol Last Admin: 07/02/17 12:09 Dose: 100 mls/hr Micafungin Sodium 100 mg/ (Sodium Chloride) 100 mls @ 100 mls/hr IVPB DAILY [facility] PRN Reason: Protocol Last Admin: 07/02/17 11:25 Dose: 100 mls/hr Insulin Human Lispro (Humalog) 0 units SC ACHS [facility] PRN Reason: Protocol Last Admin: 07/02/17 16:57 Dose: 2 units Labetalol HCl (Trandate) 5 mg IVP Q6H PRN PRN Reason: Systolic Blood Pressure Levalbuterol HCl (Xopenex) 0.63 mg INH RQ8 PRN PRN Reason: Shortness of Breath Pantoprazole Sodium (Protonix Ec Tab) 40 mg PO DAILY [facility] Sodium Bicarbonate (Sodium Bicarbonate Tab) 1,300 mg PO Q8 [facility] Last Admin: 07/02/17 16:23 Dose: 1,300 mg Thiamine HCl (Vitamin B1 Tab) 100 mg PO BID [facility] Last Admin: 07/02/17 16:26 Dose: 100 mg - Labs Labs: 07/02/17 04:45 07/02/17 04:45 PT 13.7 Seconds (9.8-13.1) H 07/02/17 04:45 INR 1.2 (0.9-1.2) 07/02/17 04:45 APTT 37.2 Seconds (25.6-37.1) H 07/02/17 04:45 - Constitutional Appears: Non-toxic, No Acute Distress - Eye Exam Eye Exam: absent: Scleral icterus - ENT Exam ENT Exam: Mucous Membranes Moist - Respiratory Exam Respiratory Exam: Clear to Ausculation Bilateral. absent: Respiratory Distress Additional comments: Decreased breath sounds on L; - Cardiovascular Exam Cardiovascular Exam: RRR, +S1, +S2 - GI/Abdominal Exam GI & Abdominal Exam: Soft. absent: Distended, Tenderness - Exam Exam: Scrotal Swelling - Extremities Exam Additional comments: markedly edematous, anasarca; - Neurological Exam Neurological Exam: Alert, Awake Additional comments: folllowing commands; - Psychiatric Exam Psychiatric exam: absent: Agitated - Skin Skin Exam: Warm. absent: Cyanosis Assessment and Plan (1) Acute renal failure Assessment & Plan: CHINTAN on CKD with multiple ATN insults; now non-oliguric and urine output increasing significantly; serum creatinine at relative; plateau and indicates renal recovery is close; need to avoid intravascular volume depletion; currently on lasix IV 80 mg q8h to help pulmonary status but may need to hold if urine output increases further; will benefit from prbc transfusion; Status: Acute (2) Pleural effusion Assessment & Plan: Recurrent L sided effusion; in need of repeat thoracentesis; previous fluid analysis indicative of transudate but may benefit from addional workup to avoid recurrence; Status: Chronic (3) Hypothermia Status: Acute (4) Altered mental status Status: Acute (5) SIRS (systemic inflammatory response syndrome) Assessment & Plan: On linezolid, micafungin and cefepime (dosed for CrCl < 15); Status: Acute (6) Nephrotic syndrome Status: Chronic (7) Anemia Assessment & Plan: Hgb dropping despite being on EPO; will repeat iron studies; should keep hgb > 8 in this patient with severe nephrotic syndrome and evidence of renovascular disease; Status: Chronic (8) Chronic kidney disease, stage 3 (moderate) Status: Chronic (9) Hypertensive CKD (chronic kidney disease) Assessment & Plan: SBP in 150's, on hydralazine 25 mg q8h; recommend to avoid dropping BP further for now (as we are still hopeful of recovery of CHINTAN); Status: Acute
[2017-07-03] MEDS ORDERED: Chlorhexidine Gluconate 1 APPL/PKT TP ONE (01:35)
--- NOTE | 2017-07-03 01:40 | PN ---
DATE: ENDOCRINOLOGY FOLLOWUP NOTE LOCATION: In the ICU, room 425. SUBJECTIVE: This is a 66-year-old male with recent uncontrolled type 2 diabetes and hypertension, presenting here with hypothermia and altered mental status, and he is followed closely for metabolic management. Remains endotracheally intubated at this time with acute respiratory failure and underlying bilateral pleural effusion. His glycemic levels have remained near optimal at this time with glucose ranging from 151-193 mg/dL. His latest thyroid study showed a T4 of 4.33 with a TSH of 5.04 and free T4 of 0.73. The numbers of the TSH levels have remarkably come down as noted. His chemistry showed a BUN of 86, , potassium 3.6, chloride 111, CO2 of 22, glucose 197, and creatinine 4.2. His elevated prolactin level is also related to the impaired given some of the underlying advanced renal insufficiency as noted thereof. So, at this time, he remains clinically and biochemically euthyroid with early elevation of the TSH most likely secondary to an acute sick euthyroid syndrome with the possibility of early autoimmune thyroiditis with hypothyroidism. PLAN OF MANAGEMENT: No indication at this time for any kind of thyroid pharmacotherapy, pending the serial thyroid testing and evaluation to be undertaken. The thyroid peroxidase antibody has been sent out which will confirm and/or indicate the presence of thyroid autoimmunity. We will follow and advise accordingly. Bettina Mann MD
[2017-07-03 04:45] LABS: ABG ALLEN TEST YES; ARTERIAL BLOOD GAS HCO3 26.1 mmol/L (21-28); ARTERIAL BLOOD GAS HEMOGLOBIN 7.9 g/dL (11.7-17.4); ARTERIAL BLOOD GAS O2 CAPACITY 10.9 mL/dL (16-24); ARTERIAL BLOOD GAS O2 CONTENT 10.8 ML/dL (15-23); ARTERIAL BLOOD GAS O2 SAT 98.9 % (95-98); ARTERIAL BLOOD GAS PCO2 39 mm/Hg (35-45); ARTERIAL BLOOD GAS PH 7.43 (7.35-7.45); ARTERIAL BLOOD GAS PO2 78 mm/Hg (80-100); ARTERIAL BLOOD GAS TCO2 27.1 mmol/L (22-28)
[2017-07-03 05:27] LABS: TB ANTIGEN MINUS NIL 0.05 IU/mL
[2017-07-03] MEDS ORDERED: Levothyroxine 25 MCG TAB PO SCH (06:30)
[2017-07-03 07:51] LABS: INR 1.2 (0.9-1.2); PARTIAL THROMBOPLASTIN TIME 37.5 Seconds (25.6-37.1); PROTHROMBIN TIME 13.8 Seconds (9.8-13.1)
[2017-07-03 08:06] LABS: BASO # 0.1 K/uL (0.0-0.2); BASO % 0.8 % (0.0-2.0); EOS # 0.1 K/uL (0.0-0.7); EOS % 0.8 % (0.0-4.0); HEMOGLOBIN 7.5 g/dL (12.0-18.0); LYMPH % 11.4 % (20.0-40.0); MEAN CELL VOLUME 93.4 fl (80.0-94.0); MEAN CORPUSCULAR HEMOGLOBIN 31.2 pg (27.0-31.0); MEAN CORPUSCULAR HGB CONC 33.4 g/dL (33.0-37.0); MEAN PLATELET VOLUME 10.6 fl (7.2-11.7); MONO # 0.4 K/uL (0.0-0.8); MONO % 4.7 % (0.0-10.0); NEUT % 82.3 % (50.0-75.0); NRBC % 0.1 % (0.0-0.0); RBC 2.41 Mil/uL (4.40-5.90); RED CELL DISTRIBUTION WIDTH 17.6 % (11.5-14.5); WHITE BLOOD COUNT 8.5 K/uL (4.8-10.8)
[2017-07-03 08:20] LABS: ALBUMIN 2.7 g/dL (3.5-5.0); CALCIUM 8.7 mg/dL (8.4-10.2)
[2017-07-03] MEDS: Albuterol-Ipratrop 3 mg / 0.5 (3 ml) UD INH SCH ×4 (08:26→19:31)
[2017-07-03] MEDS ORDERED: Pantoprazole 40 mg EC Tab PO SCH (09:00)
[2017-07-03] MEDS: Cefepime 1 GM in Sodium Chloride 0.9% 100 ML IVPB SCH (09:34)
--- NOTE | 2017-07-03 09:34 | CP.PCM.PN ---
Subjective - Date & Time of Evaluation Date of Evaluation: 07/03/17 Time of Evaluation: 07:00 - Subjective Subjective: Patient seen and examined bedside in ICU. Patient was extubated yesterday and during the day was alert, able to follow commands . Patient this morning more lethargic,tachypneic, RR:40 resp/min using NC with normal O2 saturation 98% , able to open eyes but less responsive than yesterday. Salazar urine clear yellow 400 ml. Objective - Vital Signs/Intake and Output Vital Signs (last 24 hours): Temp Pulse Resp BP Pulse Ox 99.6 F 87 35 H 153/65 H 97 07/03/17 08:00 07/03/17 08:00 07/03/17 08:00 07/03/17 08:00 07/03/17 08:00 Intake and Output: 07/03/17 07/03/17 06:59 18:59 Intake Total 300 100 Output Total 2800 Balance -2500 100 - Medications Medications: Current Medications Albuterol/Ipratropium (Duoneb 3 Mg/0.5 Mg (3 Ml) Ud) 3 ml INH RQID [facility] Last Admin: 07/03/17 08:26 Dose: 3 ml Amlodipine Besylate (Norvasc) 10 mg PO DAILY [facility] Last Admin: 07/02/17 09:39 Dose: 10 mg Bacitracin (Bacitracin Oint) 1 applic TOP TID [facility] Last Admin: 07/02/17 16:22 Dose: 1 applic Calcium Acetate (Phoslo) 2,001 mg PO WM [facility] Last Admin: 07/02/17 18:08 Dose: Not Given Dextrose (Dextrose 50% Inj) 0 ml IV STAT PRN; Protocol PRN Reason: Hypoglycemia Protocol Dextrose (Glutose 15) 0 gm PO ONCE PRN; Protocol PRN Reason: Hypoglycemia Protocol Enoxaparin Sodium (Lovenox) 30 mg SC DAILY [facility] PRN Reason: Protocol Last Admin: 07/02/17 10:02 Dose: 30 mg Epoetin Roel (Procrit) 10,000 unit SC MWF [facility] Last Admin: 07/02/17 09:44 Dose: 10,000 unit Ergocalciferol (Drisdol 50,000 Intl Units Cap) 1 cap PO Q7D [facility] Last Admin: 07/01/17 09:01 Dose: 1 cap Glucagon (Glucagen Diagnostic Kit) 0 mg IM STAT PRN; Protocol PRN Reason: Hypoglycemia Protocol Hydralazine HCl (Apresoline) 25 mg PO Q8 [facility] Last Admin: 07/03/17 00:04 Dose: Not Given Linezolid (Zyvox 600mg/300ml D5w) 600 mg in 300 mls @ 300 mls/hr IVPB Q12 [facility] PRN Reason: Protocol Last Admin: 07/02/17 20:55 Dose: 300 mls/hr Cefepime HCl 1 gm/ Sodium (Chloride) 100 mls @ 100 mls/hr IVPB DAILY [facility] PRN Reason: Protocol Last Admin: 07/02/17 12:09 Dose: 100 mls/hr Micafungin Sodium 100 mg/ (Sodium Chloride) 100 mls @ 100 mls/hr IVPB DAILY [facility] PRN Reason: Protocol Last Admin: 07/02/17 11:25 Dose: 100 mls/hr Insulin Human Lispro (Humalog) 0 units SC ACHS [facility] PRN Reason: Protocol Last Admin: 07/02/17 21:25 Dose: Not Given Labetalol HCl (Trandate) 5 mg IVP Q6H PRN PRN Reason: Systolic Blood Pressure Last Admin: 07/03/17 04:23 Dose: 5 mg Levalbuterol HCl (Xopenex) 0.63 mg INH RQ8 PRN PRN Reason: Shortness of Breath Pantoprazole Sodium (Protonix Ec Tab) 40 mg PO DAILY [facility] Sodium Bicarbonate (Sodium Bicarbonate Tab) 1,300 mg PO Q8 [facility] Last Admin: 07/02/17 16:23 Dose: 1,300 mg Thiamine HCl (Vitamin B1 Tab) 100 mg PO BID [facility] Last Admin: 07/02/17 16:26 Dose: 100 mg - Labs Labs: 07/03/17 06:55 07/03/17 06:54 PT 13.8 Seconds (9.8-13.1) H 07/03/17 06:55 INR 1.2 (0.9-1.2) 07/03/17 06:55 APTT 37.5 Seconds (25.6-37.1) H 07/03/17 06:55 - Constitutional Appears: In Acute Distress (from SOB) - Head Exam Head Exam: ATRAUMATIC, NORMOCEPHALIC - Eye Exam Eye Exam: Normal appearance, PERRL - ENT Exam ENT Exam: Mucous Membranes Moist - Neck Exam Neck Exam: Normal Inspection - Respiratory Exam Respiratory Exam: Decreased Breath Sounds Additional comments: B/L bibasilar - Cardiovascular Exam Cardiovascular Exam: REGULAR RHYTHM, +S1, +S2 - GI/Abdominal Exam GI & Abdominal Exam: Soft, Normal Bowel Sounds. absent: Tenderness - Extremities Exam Extremities Exam: Pedal Edema (less edema +1 b/l thigh and left foot +2 pedal edema ) - Neurological Exam Additional comments: lethargic - Skin Skin Exam: Abrasion Additional comments: left dorsal hand, over nose. sacral ulcer stage 2 and TDI Assessment and Plan - Assessment and Plan (Free Text) Plan: 66 yo M w/ pmh of htn, dm, CKD IIIB w/ 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, monoclonal gammopathy, recurrent L pleural effusion, admitted for sepsis, Hypothermia, CHINTAN on CKD Assessment/Plan 1) Acute Respiratory Failure secondary to worsening pleural effusion on nephrotic syndrome -Admitted ICU -s/p cardiac arrest 4 days ago with ROSC after 4 min and 2 rounds of epi -Patient extubated yesterday, breathing by NC, O2 sat normal -ABG this morning normal, except mild hypoxemia -sputum and trach cx: yeast -f/u CXR, ABG 2) Recurrent Left Pleural effusion - S/P left thoracocentesis: Removed 1.2 L of straw colored fluid. F/u with cultures and cytology - has reaccumulated 06/29/17 2/2 warming fluids - CXR mild improvement of pleural effusion while on lasix - IR consult suggested - Transudate pleural fluid: Total serum Protein:5.5, Plerual fluid protein: 2, serum LDH: 689, Pleural fluid LDH: 323: Positive lights criteria -Pulmonology consult appreciated -quantiferon gold:indeterminate 3) HAP -improving -recent admission before 06/22 -CXR: pleural effusions and new infiltrates. -c/w cefepime day # 8, linezolid day # 9 -Procalcitonin 14.4 07/01/17 -will f/u procalcitonin 4) Sepsis - SIRS (hypothermia,tachypnea,leukocytosis) - CXR: b/l lower lobe infiltrates and small pleural effusions - ID consult appreciated: Added Mycamine - C/W Maxapine day # 8 and Linozolid day # 9 -Procalcitonin 14.4 07/01/17 -f/u procalcitonin 5) Nephrotic Syndrome -secondary to DM nepropathy -Kidney biopsy 06/05/17: Diabetic nephropathy, nodular glomerulosclerosis, associated with aprox 40 % globally sclerosed glomeruli( calss III), 10-15 % segmentally sclerosed glomeruli, docal moderate interstitial fibrosis and mod vascular sclerosis, including marked hyaline arteriolosclerosis.NO EVIDENCE OF MONOCLONAL LIGHT OR HEAVY CHAIN-RELATED RENAL DISEASE. 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 -Renal duplex: no renal vein thrombosis - HIV test neg 6) CHINTAN on CKD stage 4 w/ new onset of ATN - Worsening of CKD from stage 3 to stage 4 secondary to CHINTAN - Nephorologist consult appreciated: Advised to continue KEVIN inhibition and DM control. no HD for now -c/w oral bicarbonate, vit d, calcium acetate - F/U with morning CMP 7) Thrombocytopenia -may be secondary to bone marrow suppresion secondary to nephrotic syndrome. -PLt 82- 88 improving -F/U CBC 8) Hypothyroidism -TSH 4, Ft4 0.7 -Econdrinologist consult appreciated: will repeat thyroid labs, ab, high prolactin could be related to not good clearance due to CHINTAN or microadenoma. MRI brain when pt stable. 9) Hyperprolactinemia -Pralactin level 95 -Endocrionologist consult suggested: will repeat thyroid labs, ab, high prolactin could be related to not good clearance due to CHINTAN or microadenoma. MRI brain when pt stable. -f/u serial prolactin levels. 10) Pressure Ulcer and TDI -Sacral region stage 2 -wound care consult appreciated 11) Hypothermia -resolved -secondary to sepsis/hypothryroidism -on admission, 2 days ago and yesterday(3 episosdes of hypothermia) -Marino esparza - Neuro consult appreciated: MRI suggested. last MRI 05/2017 no abnormality on thalamus 12) UTI ( Resolved) - on admission Initial Urine Culture: > 100,000 gram positive coci coagulase negative. Similar to previous admission - Repeat Urine Culture is negative for bacteria but now growing yeasts. - C/W Maxapine and Linozolid 13) Monoclonal Gammopathy -Bone marrow biopsy 11/6/17 hypocellular bone marrow with scattered plasma cells. no evidence of overt or advanced myelodysplasia, acute leukemia, met neoplasm or lymphoma. 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 To keep systolic BP 150 - Labetalol 5m IV PRN 17) Anemia -secondary to CKD/sepsis - HB: 7.5 -Transfusion 2 U today - C/W procrit 18) DVT prophylaxis -Lovenox 30 mg sc (renal dose Cr CL 18) 19) GI prophylaxis -Pantoprazol 40 mg IV
[2017-07-03] MEDS: Enoxaparin 30 mg Syringe SC SCH (09:45)
[2017-07-03] MEDS: Bacitracin OINT 15GM TOP SCH ×3 (09:46→16:31)
[2017-07-03] MEDS ORDERED: Metoprolol 1 mg/ml Inj IVP SCH (10:22)
--- NOTE | 2017-07-03 10:52 | CP.PCM.PN ---
Subjective - Date & Time of Evaluation Date of Evaluation: 07/03/17 Time of Evaluation: 10:52 - Subjective Subjective: EXTUBATED ON HEATING BLANKET LUNGS-FAIR AERATION WITH BASAL RALES HEART-S1S2 CXR-BILATERAL PLEURAL EFFUSIONS[L>R] PLAN-CONTINUE CURRENT RX Objective - Vital Signs/Intake and Output Vital Signs (last 24 hours): Temp Pulse Resp BP Pulse Ox 99.6 F 87 35 H 153/65 H 97 07/03/17 08:00 07/03/17 08:00 07/03/17 08:00 07/03/17 08:00 07/03/17 08:00 Intake and Output: 07/03/17 07/03/17 06:59 18:59 Intake Total 300 100 Output Total 2800 Balance -2500 100 - Medications Medications: Current Medications Albuterol/Ipratropium (Duoneb 3 Mg/0.5 Mg (3 Ml) Ud) 3 ml INH RQID [facility] Last Admin: 07/03/17 08:26 Dose: 3 ml Amlodipine Besylate (Norvasc) 10 mg PO DAILY [facility] Last Admin: 07/02/17 09:39 Dose: 10 mg Bacitracin (Bacitracin Oint) 1 applic TOP TID [facility] Last Admin: 07/03/17 09:46 Dose: 1 applic Calcium Acetate (Phoslo) 2,001 mg PO WM [facility] Last Admin: 07/03/17 09:46 Dose: Not Given Dextrose (Dextrose 50% Inj) 0 ml IV STAT PRN; Protocol PRN Reason: Hypoglycemia Protocol Dextrose (Glutose 15) 0 gm PO ONCE PRN; Protocol PRN Reason: Hypoglycemia Protocol Enoxaparin Sodium (Lovenox) 30 mg SC DAILY [facility] PRN Reason: Protocol Last Admin: 07/03/17 09:45 Dose: 30 mg Epoetin Roel (Procrit) 10,000 unit SC MWF [facility] Last Admin: 07/02/17 09:44 Dose: 10,000 unit Ergocalciferol (Drisdol 50,000 Intl Units Cap) 1 cap PO Q7D [facility] Last Admin: 07/01/17 09:01 Dose: 1 cap Glucagon (Glucagen Diagnostic Kit) 0 mg IM STAT PRN; Protocol PRN Reason: Hypoglycemia Protocol Hydralazine HCl (Apresoline) 25 mg PO Q8 [facility] Last Admin: 07/03/17 09:47 Dose: Not Given Linezolid (Zyvox 600mg/300ml D5w) 600 mg in 300 mls @ 300 mls/hr IVPB Q12 [facility] PRN Reason: Protocol Last Admin: 07/02/17 20:55 Dose: 300 mls/hr Cefepime HCl 1 gm/ Sodium (Chloride) 100 mls @ 100 mls/hr IVPB DAILY [facility] PRN Reason: Protocol Last Admin: 07/03/17 09:34 Dose: 100 mls/hr Micafungin Sodium 100 mg/ (Sodium Chloride) 100 mls @ 100 mls/hr IVPB DAILY [facility] PRN Reason: Protocol Last Admin: 07/02/17 11:25 Dose: 100 mls/hr Insulin Human Lispro (Humalog) 0 units SC ACHS [facility] PRN Reason: Protocol Last Admin: 07/02/17 21:25 Dose: Not Given Metoprolol Tartrate (Lopressor) 2.5 mg IVP Q6 [facility] Pantoprazole Sodium (Protonix Ec Tab) 40 mg PO DAILY [facility] Last Admin: 07/03/17 09:46 Dose: Not Given Sodium Bicarbonate (Sodium Bicarbonate Tab) 1,300 mg PO Q8 [facility] Last Admin: 07/02/17 16:23 Dose: 1,300 mg Thiamine HCl (Vitamin B1 Tab) 100 mg PO BID [facility] Last Admin: 07/03/17 09:46 Dose: Not Given - Labs Labs: 07/03/17 06:55 07/03/17 06:54 PT 13.8 Seconds (9.8-13.1) H 07/03/17 06:55 INR 1.2 (0.9-1.2) 07/03/17 06:55 APTT 37.5 Seconds (25.6-37.1) H 07/03/17 06:55
[2017-07-03] MEDS: Linezolid 600 mg in D5W 300 ml 600 MG/300 ML BAG IVPB SCH ×2 (11:26→20:41)
--- NOTE | 2017-07-03 11:44 | CP.CCUPN ---
<Regina Maganamelita - Last Filed: 07/03/17 13:41> CCU Subjective - Physician Review Subjective (Free Text): Patient seen and examined bedside. This AM the patient is more drowsy but arousable. He is more tachypneic this morning. Remains on zohra hugger. Placed on [place] oxygen due to desaturation on NC. Repeat CXR appears to have some worsening of bilateral effusions. No further episodes of hypothermia. Patient to have swallow eval today. All labs and imaging reviewed. Assessment and Plan: 66 year old male with PMH of HTN, CKD, nephrotic syndrome, chronic left sided pleural effusion admitted for hypothermia, AMS with acute hypercapnia respiratory failure on 06/22, subsequently developed acute hypoxic respiratory failure, cardiac arrest required intubation on 06/29/17. Patient was extubated on 07/02/17. Will repeat his prolactin/procalcitonin. His anemia/thrombocytopenia are stable. His BP remains elevated despite hydralazine and amlodipine. Will start labetolol for better HR/BP control and decrease myocardial demand. He continues to have anasarca, albumin has been stable. consider spironolactone. D/c norvasc, as it is possibly contributing to edema His EEG report is pending. HIV is negative. #Healthcare associated pneumonia #UTI #Chronic/Recurrent Pleural Effusion #Anasarca #Thrombocytopenia, acute #Acute Renal Failure #Nephrotic Syndrome in setting of CKD #Hypertension #Anemia, chronic #Diabetes Mellitus, type 2 #Prophylaxis DVT/GI Plan: -Follow up EEG. -Follow up prolactin, procalcitonin -Continue with IV antibiotics/antifungal as per ID : Maxipime/Linezolid/Mycamine -Continue with diuresis, consider spironolactone given worsening of pleural effusion -Lopressor 2.5mg q6 added Case d/w primary team. Case d/w Dr. Mata. CCU Objective - Vital Signs / Intake & Output Vital Signs (Last 4 hours): Vital Signs Temp Pulse Resp BP Pulse Ox 07/03/17 08:00 99.6 F 87 35 H 153/65 H 97 Intake and Output (Last 8hrs): Intake & Output 07/02/17 07/03/17 07/03/17 22:59 06:59 14:59 Intake Total 321 0 100 Output Total 1601 2800 Balance -1280 -2800 100 Intake: IV 0 Intake, Piggyback 320 100 Oral 1 0 Output: Urine 1600 2800 Urethral (Salazar) 1600 2800 Stool 1 - Physical Exam Head: Positive for: Atraumatic, Normocephalic Pupils: Positive for: PERRL Mouth: Positive for: Moist Mucous Membranes Nose (External): Positive for: Lesions (on nose brown scab) Respiratory/Chest: Positive for: Good Air Exchange, Respiratory Distress (mild) , Decreased Breath Sounds (clear to auscultation exccept for right lung base has rales, left lung decreased breath sounds). Negative for: Wheezes, Retracting, Rhonchi Cardiovascular: Positive for: Regular Rate and Rhythm, Murmurs. Negative for: Tachycardic, Bradycardic Abdomen: Positive for: Normal Bowel Sounds. Negative for: Tenderness, Distention, Peritoneal Signs Genitourinary Male: Positive for: Penile Swelling, Testicle Swelling Upper Extremity: Positive for: Edema (bilaterallly, 2+ pitting ) Lower Extremity: Positive for: Edema (1+ up to thigh). Negative for: Tenderness Neurological: Positive for: Other (awake and alert, intubated, following commands) Skin: Positive for: Warm, Dry, Other (gauze on back of left hand) Psychiatric: Positive for: Other (drowsy, arousable ) - Medications Active Medications: Active Medications Generic Name Dose Route Start Last Admin Trade Name Freq PRN Reason Stop Dose Admin Albuterol/Ipratropium 3 ml 06/28/17 16:00 07/03/17 08:26 Duoneb 3 Mg/0.5 Mg (3 Ml) Ud INH 3 ml RQID THOMAS Administration Amlodipine Besylate 10 mg 06/26/17 09:00 07/02/17 09:39 Norvasc PO 10 mg DAILY THOMAS Administration Bacitracin 1 applic 06/27/17 13:00 07/03/17 09:46 Bacitracin Oint TOP 1 applic TID THOMAS Administration Calcium Acetate 2,001 mg 06/24/17 18:30 07/03/17 11:33 Phoslo PO Not Given WM THOMAS Dextrose 0 ml 06/22/17 22:36 Dextrose 50% Inj IV STAT PRN Hypoglycemia Protocol Protocol Dextrose 0 gm 06/22/17 22:36 Glutose 15 PO ONCE PRN Hypoglycemia Protocol Protocol Enoxaparin Sodium 30 mg 07/02/17 09:00 07/03/17 09:45 Lovenox SC 30 mg DAILY THOMAS Administration Protocol Epoetin Roel 10,000 unit 06/23/17 13:00 07/02/17 09:44 Procrit SC 10,000 unit MWF THOMAS Administration Ergocalciferol 1 cap 06/24/17 10:00 07/01/17 09:01 Drisdol 50,000 Intl Units Cap PO 1 cap Q7D THOMAS Administration Glucagon 0 mg 06/22/17 22:36 Glucagen Diagnostic Kit IM STAT PRN Hypoglycemia Protocol Protocol Hydralazine HCl 25 mg 07/02/17 01:00 07/03/17 09:47 Apresoline PO Not Given Q8 THOMAS Linezolid 600 mg in 300 mls @ 300 mls/hr 06/25/17 21:00 07/03/17 11:26 Zyvox 600mg/300ml D5w IVPB 300 mls/hr Q12 THOMAS Administration Protocol Cefepime HCl 1 gm/ Sodium 100 mls @ 100 mls/hr 06/26/17 09:00 07/03/17 09:34 Chloride IVPB 100 mls/hr DAILY THOMAS Administration Protocol Micafungin Sodium 100 mg/ 100 mls @ 100 mls/hr 07/01/17 13:45 07/02/17 11:25 Sodium Chloride IVPB 100 mls/hr DAILY THOMAS Administration Protocol Insulin Human Lispro 0 units 06/23/17 07:30 07/02/17 21:25 Humalog SC Not Given ACHS [facility] Protocol Metoprolol Tartrate 2.5 mg 07/03/17 10:22 Lopressor IVP Q6 THOMAS Pantoprazole Sodium 40 mg 07/03/17 09:00 07/03/17 09:46 Protonix Ec Tab PO Not Given DAILY THOMAS Sodium Bicarbonate 1,300 mg 06/30/17 17:00 07/02/17 16:23 Sodium Bicarbonate Tab PO 1,300 mg Q8 THOMAS Administration Thiamine HCl 100 mg 06/24/17 21:30 07/03/17 09:46 Vitamin B1 Tab PO Not Given BID THOMAS - Patient Studies Lab Studies: Microbiology Studies 06/28/17 11:05 Blood Culture - Final Blood NO GROWTH AFTER 5 DAYS Gram Stain - Final TEST NOT PERFORMED 06/29/17 08:29 Gram Stain - Final Trachasp Sputum Culture - Final Yeast Species 06/25/17 16:51 Gram Stain - Final Body Fluid - Pleural Fluid Body Fluid Culture - Final No growth. Lab Studies 07/03/17 07/03/17 07/03/17 Range/Units 11:31 10:10 06:55 WBC (4.8-10.8) K/uL RBC (4.40-5.90) Mil/uL Hgb (12.0-18.0) g/dL Hct (35.0-51.0) % MCV (80.0-94.0) fl MCH (27.0-31.0) pg MCHC (33.0-37.0) g/dL RDW (11.5-14.5) % Plt Count (130-400) K/uL MPV (7.2-11.7) fl Neut % (Auto) (50.0-75.0) % Lymph % (Auto) (20.0-40.0) % [place] % (Auto) (0.0-10.0) % Eos % (Auto) (0.0-4.0) % Baso % (Auto) (0.0-2.0) % Neut # (1.8-7.0) K/uL Lymph # (1.0-4.3) K/uL [place] # (0.0-0.8) K/uL Eos # (0.0-0.7) K/uL Baso # (0.0-0.2) K/uL PT 13.8 H (9.8-13.1) Seconds INR 1.2 (0.9-1.2) APTT 37.5 H (25.6-37.1) Seconds pCO2 (35-45) mm/Hg pO2 (80-100) mm/Hg HCO3 (21-28) mmol/L ABG pH (7.35-7.45) ABG Total CO2 (22-28) mmol/L ABG O2 Saturation (95-98) % ABG O2 Content (15-23) ML/dL ABG Base Excess (-2.0-3.0) mmol/L ABG Hemoglobin (11.7-17.4) g/dL ABG Carboxyhemoglobin (0.5-1.5) % POC ABG HHb (Measured) (0.0-5.0) % ABG Methemoglobin (0.0-3.0) % ABG O2 Capacity (16-24) mL/dL Andry Test A-a O2 Difference mm/Hg Hgb O2 Saturation (95.0-98.0) % Vent Mode FiO2 % Sodium (132-148) mmol/l Potassium (3.6-5.0) MMOL/L Chloride (98-107) mmol/L Carbon Dioxide (22-30) mmol/L Anion Gap (10-20) BUN (9-20) mg/dl Creatinine (0.8-1.5) mg/dl Est GFR ( Amer) Est GFR (Non-Af Amer) POC Glucose (mg/dL) 122 H (65-110) mg/dL Random Glucose (75-110) mg/dL Calcium (8.4-10.2) mg/dL Phosphorus (2.5-4.5) mg/dl Magnesium (1.6-2.3) MG/DL Total Bilirubin (0.2-1.3) mg/dl AST (17-59) U/L ALT (21-72) U/L Alkaline Phosphatase (38-126) U/L Total Protein (6.3-8.2) G/DL Albumin (3.5-5.0) g/dL Globulin (2.2-3.9) gm/dL Albumin/Globulin Ratio (1.0-2.1) Vitamin B1 Urine Myoglobin Serum Immunofixation (Not Detected) HIV 1&2 Ag/Ab, 4th Gen (Nonreactive) TB Test (QFT) Nil IU/mL TB Test Mitogen - Nil IU/mL TB Test TB - Nil IU/mL TB Test (QFT) (Negative) Blood Type A NEGATIVE Antibody Screen Negative Crossmatch See Detail BBK History Checked Patient has bt 07/03/17 07/03/17 07/03/17 Range/Units 06:55 06:54 04:40 WBC 8.5 (4.8-10.8) K/uL RBC 2.41 L (4.40-5.90) Mil/uL Hgb 7.5 L (12.0-18.0) g/dL Hct 22.5 L (35.0-51.0) % MCV 93.4 (80.0-94.0) fl MCH 31.2 H (27.0-31.0) pg MCHC 33.4 (33.0-37.0) g/dL RDW 17.6 H (11.5-14.5) % Plt Count 88 L (130-400) K/uL MPV 10.6 (7.2-11.7) fl Neut % (Auto) 82.3 H (50.0-75.0) % Lymph % (Auto) 11.4 L (20.0-40.0) % [place] % (Auto) 4.7 (0.0-10.0) % Eos % (Auto) 0.8 (0.0-4.0) % Baso % (Auto) 0.8 (0.0-2.0) % Neut # 7.0 (1.8-7.0) K/uL Lymph # 1.0 (1.0-4.3) K/uL [place] # 0.4 (0.0-0.8) K/uL Eos # 0.1 (0.0-0.7) K/uL Baso # 0.1 (0.0-0.2) K/uL PT (9.8-13.1) Seconds INR (0.9-1.2) APTT (25.6-37.1) Seconds pCO2 39 (35-45) mm/Hg pO2 78 L (80-100) mm/Hg HCO3 26.1 (21-28) mmol/L ABG pH 7.43 (7.35-7.45) ABG Total CO2 27.1 (22-28) mmol/L ABG O2 Saturation 98.9 H (95-98) % ABG O2 Content 10.8 L (15-23) ML/dL ABG Base Excess 1.5 (-2.0-3.0) mmol/L ABG Hemoglobin 7.9 L (11.7-17.4) g/dL ABG Carboxyhemoglobin 1.6 H (0.5-1.5) % POC ABG HHb (Measured) 1.1 (0.0-5.0) % ABG Methemoglobin 0.7 (0.0-3.0) % ABG O2 Capacity 10.9 L (16-24) mL/dL Andry Test Yes A-a O2 Difference 101.0 mm/Hg Hgb O2 Saturation 96.5 (95.0-98.0) % Vent Mode Nasal cannula FiO2 32.0 % Sodium 148 (132-148) mmol/l Potassium 3.3 L (3.6-5.0) MMOL/L Chloride 112 H (98-107) mmol/L Carbon Dioxide 24 (22-30) mmol/L Anion Gap 15 (10-20) BUN 81 H (9-20) mg/dl Creatinine 4.3 H (0.8-1.5) mg/dl Est GFR ( Amer) 17 Est GFR (Non-Af Amer) 14 POC Glucose (mg/dL) (65-110) mg/dL Random Glucose 104 (75-110) mg/dL Calcium 8.7 (8.4-10.2) mg/dL Phosphorus 7.7 H (2.5-4.5) mg/dl Magnesium 2.4 H (1.6-2.3) MG/DL Total Bilirubin 0.3 (0.2-1.3) mg/dl AST 21 (17-59) U/L ALT 55 (21-72) U/L Alkaline Phosphatase 221 H (38-126) U/L Total Protein 5.6 L (6.3-8.2) G/DL Albumin 2.7 L (3.5-5.0) g/dL Globulin 2.9 (2.2-3.9) gm/dL Albumin/Globulin Ratio 1.0 (1.0-2.1) Vitamin B1 Urine Myoglobin Serum Immunofixation (Not Detected) HIV 1&2 Ag/Ab, 4th Gen (Nonreactive) TB Test (QFT) Nil IU/mL TB Test Mitogen - Nil IU/mL TB Test TB - Nil IU/mL TB Test (QFT) (Negative) Blood Type Antibody Screen Crossmatch BBK History Checked 07/03/17 07/02/17 07/02/17 Range/Units 04:32 21:20 16:50 WBC (4.8-10.8) K/uL RBC (4.40-5.90) Mil/uL Hgb (12.0-18.0) g/dL Hct (35.0-51.0) % MCV (80.0-94.0) fl MCH (27.0-31.0) pg MCHC (33.0-37.0) g/dL RDW (11.5-14.5) % Plt Count (130-400) K/uL MPV (7.2-11.7) fl Neut % (Auto) (50.0-75.0) % Lymph % (Auto) (20.0-40.0) % [place] % (Auto) (0.0-10.0) % Eos % (Auto) (0.0-4.0) % Baso % (Auto) (0.0-2.0) % Neut # (1.8-7.0) K/uL Lymph # (1.0-4.3) K/uL [place] # (0.0-0.8) K/uL Eos # (0.0-0.7) K/uL Baso # (0.0-0.2) K/uL PT (9.8-13.1) Seconds INR (0.9-1.2) APTT (25.6-37.1) Seconds pCO2 (35-45) mm/Hg pO2 (80-100) mm/Hg HCO3 (21-28) mmol/L ABG pH (7.35-7.45) ABG Total CO2 (22-28) mmol/L ABG O2 Saturation (95-98) % ABG O2 Content (15-23) ML/dL ABG Base Excess (-2.0-3.0) mmol/L ABG Hemoglobin (11.7-17.4) g/dL ABG Carboxyhemoglobin (0.5-1.5) % POC ABG HHb (Measured) (0.0-5.0) % ABG Methemoglobin (0.0-3.0) % ABG O2 Capacity (16-24) mL/dL Andry Test A-a O2 Difference mm/Hg Hgb O2 Saturation (95.0-98.0) % Vent Mode FiO2 % Sodium (132-148) mmol/l Potassium (3.6-5.0) MMOL/L Chloride (98-107) mmol/L Carbon Dioxide (22-30) mmol/L Anion Gap (10-20) BUN (9-20) mg/dl Creatinine (0.8-1.5) mg/dl Est GFR ( Amer) Est GFR (Non-Af Amer) POC Glucose (mg/dL) 119 H 165 H 157 H (65-110) mg/dL Random Glucose (75-110) mg/dL Calcium (8.4-10.2) mg/dL Phosphorus (2.5-4.5) mg/dl Magnesium (1.6-2.3) MG/DL Total Bilirubin (0.2-1.3) mg/dl AST (17-59) U/L ALT (21-72) U/L Alkaline Phosphatase (38-126) U/L Total Protein (6.3-8.2) G/DL Albumin (3.5-5.0) g/dL Globulin (2.2-3.9) gm/dL Albumin/Globulin Ratio (1.0-2.1) Vitamin B1 Urine Myoglobin Serum Immunofixation (Not Detected) HIV 1&2 Ag/Ab, 4th Gen (Nonreactive) TB Test (QFT) Nil IU/mL TB Test Mitogen - Nil IU/mL TB Test TB - Nil IU/mL TB Test (QFT) (Negative) Blood Type Antibody Screen Crossmatch BBK History Checked 07/02/17 07/01/17 07/01/17 Range/Units 11:35 15:05 15:05 WBC (4.8-10.8) K/uL RBC (4.40-5.90) Mil/uL Hgb (12.0-18.0) g/dL Hct (35.0-51.0) % MCV (80.0-94.0) fl MCH (27.0-31.0) pg MCHC (33.0-37.0) g/dL RDW (11.5-14.5) % Plt Count (130-400) K/uL MPV (7.2-11.7) fl Neut % (Auto) (50.0-75.0) % Lymph % (Auto) (20.0-40.0) % [place] % (Auto) (0.0-10.0) % Eos % (Auto) (0.0-4.0) % Baso % (Auto) (0.0-2.0) % Neut # (1.8-7.0) K/uL Lymph # (1.0-4.3) K/uL [place] # (0.0-0.8) K/uL Eos # (0.0-0.7) K/uL Baso # (0.0-0.2) K/uL PT (9.8-13.1) Seconds INR (0.9-1.2) APTT (25.6-37.1) Seconds pCO2 (35-45) mm/Hg pO2 (80-100) mm/Hg HCO3 (21-28) mmol/L ABG pH (7.35-7.45) ABG Total CO2 (22-28) mmol/L ABG O2 Saturation (95-98) % ABG O2 Content (15-23) ML/dL ABG Base Excess (-2.0-3.0) mmol/L ABG Hemoglobin (11.7-17.4) g/dL ABG Carboxyhemoglobin (0.5-1.5) % POC ABG HHb (Measured) (0.0-5.0) % ABG Methemoglobin (0.0-3.0) % ABG O2 Capacity (16-24) mL/dL Andry Test A-a O2 Difference mm/Hg Hgb O2 Saturation (95.0-98.0) % Vent Mode FiO2 % Sodium (132-148) mmol/l Potassium (3.6-5.0) MMOL/L Chloride (98-107) mmol/L Carbon Dioxide (22-30) mmol/L Anion Gap (10-20) BUN (9-20) mg/dl Creatinine (0.8-1.5) mg/dl Est GFR ( Amer) Est GFR (Non-Af Amer) POC Glucose (mg/dL) 238 H (65-110) mg/dL Random Glucose (75-110) mg/dL Calcium (8.4-10.2) mg/dL Phosphorus (2.5-4.5) mg/dl Magnesium (1.6-2.3) MG/DL Total Bilirubin (0.2-1.3) mg/dl AST (17-59) U/L ALT (21-72) U/L Alkaline Phosphatase (38-126) U/L Total Protein (6.3-8.2) G/DL Albumin (3.5-5.0) g/dL Globulin (2.2-3.9) gm/dL Albumin/Globulin Ratio (1.0-2.1) Vitamin B1 Urine Myoglobin Serum Immunofixation (Not Detected) HIV 1&2 Ag/Ab, 4th Gen Nonreactive (Nonreactive) TB Test (QFT) Nil 0.04 IU/mL TB Test Mitogen - Nil 0.29 IU/mL TB Test TB - Nil 0.05 IU/mL TB Test (QFT) Indeterminate H (Negative) Blood Type Antibody Screen Crossmatch BBK History Checked 06/28/17 06/28/17 06/28/17 Range/Units 23:00 13:49 13:49 WBC (4.8-10.8) K/uL RBC (4.40-5.90) Mil/uL Hgb (12.0-18.0) g/dL Hct (35.0-51.0) % MCV (80.0-94.0) fl MCH (27.0-31.0) pg MCHC (33.0-37.0) g/dL RDW (11.5-14.5) % Plt Count (130-400) K/uL MPV (7.2-11.7) fl Neut % (Auto) (50.0-75.0) % Lymph % (Auto) (20.0-40.0) % [place] % (Auto) (0.0-10.0) % Eos % (Auto) (0.0-4.0) % Baso % (Auto) (0.0-2.0) % Neut # (1.8-7.0) K/uL Lymph # (1.0-4.3) K/uL [place] # (0.0-0.8) K/uL Eos # (0.0-0.7) K/uL Baso # (0.0-0.2) K/uL PT (9.8-13.1) Seconds INR (0.9-1.2) APTT (25.6-37.1) Seconds pCO2 (35-45) mm/Hg pO2 (80-100) mm/Hg HCO3 (21-28) mmol/L ABG pH (7.35-7.45) ABG Total CO2 (22-28) mmol/L ABG O2 Saturation (95-98) % ABG O2 Content (15-23) ML/dL ABG Base Excess (-2.0-3.0) mmol/L ABG Hemoglobin (11.7-17.4) g/dL ABG Carboxyhemoglobin (0.5-1.5) % POC ABG HHb (Measured) (0.0-5.0) % ABG Methemoglobin (0.0-3.0) % ABG O2 Capacity (16-24) mL/dL Andry Test A-a O2 Difference mm/Hg Hgb O2 Saturation (95.0-98.0) % Vent Mode FiO2 % Sodium (132-148) mmol/l Potassium (3.6-5.0) MMOL/L Chloride (98-107) mmol/L Carbon Dioxide (22-30) mmol/L Anion Gap (10-20) BUN (9-20) mg/dl Creatinine (0.8-1.5) mg/dl Est GFR ( Amer) Est GFR (Non-Af Amer) POC Glucose (mg/dL) (65-110) mg/dL Random Glucose (75-110) mg/dL Calcium (8.4-10.2) mg/dL Phosphorus (2.5-4.5) mg/dl Magnesium (1.6-2.3) MG/DL Total Bilirubin (0.2-1.3) mg/dl AST (17-59) U/L ALT (21-72) U/L Alkaline Phosphatase (38-126) U/L Total Protein (6.3-8.2) G/DL Albumin (3.5-5.0) g/dL Globulin (2.2-3.9) gm/dL Albumin/Globulin Ratio (1.0-2.1) Vitamin B1 TNP Urine Myoglobin TNP Serum Immunofixation Detected H (Not Detected) HIV 1&2 Ag/Ab, 4th Gen (Nonreactive) TB Test (QFT) Nil IU/mL TB Test Mitogen - Nil IU/mL TB Test TB - Nil IU/mL TB Test (QFT) (Negative) Blood Type Antibody Screen Crossmatch BBK History Checked Laboratory Results - last 24 hr 06/28/17 06/28/17 06/28/17 13:49 13:49 23:00 WBC RBC Hgb Hct MCV MCH MCHC RDW Plt Count MPV Neut % (Auto) Lymph % (Auto) [place] % (Auto) Eos % (Auto) Baso % (Auto) Neut # Lymph # [place] # Eos # Baso # PT INR APTT pCO2 pO2 HCO3 ABG pH ABG Total CO2 ABG O2 Saturation ABG O2 Content ABG Base Excess ABG Hemoglobin ABG Carboxyhemoglobin POC ABG HHb (Measured) ABG Methemoglobin ABG O2 Capacity Andry Test A-a O2 Difference Hgb O2 Saturation Vent Mode FiO2 Sodium Potassium Chloride Carbon Dioxide Anion Gap BUN Creatinine Est GFR ( Amer) Est GFR (Non-Af Amer) POC Glucose (mg/dL) Random Glucose Calcium Phosphorus Magnesium Total Bilirubin AST ALT Alkaline Phosphatase Total Protein Albumin Globulin Albumin/Globulin Ratio Vitamin B1 TNP Urine Myoglobin TNP Serum Immunofixation Detected H HIV 1&2 Ag/Ab, 4th Gen TB Test (QFT) Nil TB Test Mitogen - Nil TB Test TB - Nil TB Test (QFT) Blood Type Antibody Screen Crossmatch BBK History Checked 07/01/17 07/01/17 07/02/17 15:05 15:05 11:35 WBC RBC Hgb Hct MCV MCH MCHC RDW Plt Count MPV Neut % (Auto) Lymph % (Auto) [place] % (Auto) Eos % (Auto) Baso % (Auto) Neut # Lymph # [place] # Eos # Baso # PT INR APTT pCO2 pO2 HCO3 ABG pH ABG Total CO2 ABG O2 Saturation ABG O2 Content ABG Base Excess ABG Hemoglobin ABG Carboxyhemoglobin POC ABG HHb (Measured) ABG Methemoglobin ABG O2 Capacity Andry Test A-a O2 Difference Hgb O2 Saturation Vent Mode FiO2 Sodium Potassium Chloride Carbon Dioxide Anion Gap BUN Creatinine Est GFR ( Amer) Est GFR (Non-Af Amer) POC Glucose (mg/dL) 238 H Random Glucose Calcium Phosphorus Magnesium Total Bilirubin AST ALT Alkaline Phosphatase Total Protein Albumin Globulin Albumin/Globulin Ratio Vitamin B1 Urine Myoglobin Serum Immunofixation HIV 1&2 Ag/Ab, 4th Gen Nonreactive TB Test (QFT) Nil 0.04 TB Test Mitogen - Nil 0.29 TB Test TB - Nil 0.05 TB Test (QFT) Indeterminate H Blood Type Antibody Screen Crossmatch BBK History Checked 07/02/17 07/02/17 07/03/17 16:50 21:20 04:32 WBC RBC Hgb Hct MCV MCH MCHC RDW Plt Count MPV Neut % (Auto) Lymph % (Auto) [place] % (Auto) Eos % (Auto) Baso % (Auto) Neut # Lymph # [place] # Eos # Baso # PT INR APTT pCO2 pO2 HCO3 ABG pH ABG Total CO2 ABG O2 Saturation ABG O2 Content ABG Base Excess ABG Hemoglobin ABG Carboxyhemoglobin POC ABG HHb (Measured) ABG Methemoglobin ABG O2 Capacity Andry Test A-a O2 Difference Hgb O2 Saturation Vent Mode FiO2 Sodium Potassium Chloride Carbon Dioxide Anion Gap BUN Creatinine Est GFR ( Amer) Est GFR (Non-Af Amer) POC Glucose (mg/dL) 157 H 165 H 119 H Random Glucose Calcium Phosphorus Magnesium Total Bilirubin AST ALT Alkaline Phosphatase Total Protein Albumin Globulin Albumin/Globulin Ratio Vitamin B1 Urine Myoglobin Serum Immunofixation HIV 1&2 Ag/Ab, 4th Gen TB Test (QFT) Nil TB Test Mitogen - Nil TB Test TB - Nil TB Test (QFT) Blood Type Antibody Screen Crossmatch BBK History Checked 07/03/17 07/03/17 07/03/17 04:40 06:54 06:55 WBC 8.5 RBC 2.41 L Hgb 7.5 L Hct 22.5 L MCV 93.4 MCH 31.2 H MCHC 33.4 RDW 17.6 H Plt Count 88 L MPV 10.6 Neut % (Auto) 82.3 H Lymph % (Auto) 11.4 L [place] % (Auto) 4.7 Eos % (Auto) 0.8 Baso % (Auto) 0.8 Neut # 7.0 Lymph # 1.0 [place] # 0.4 Eos # 0.1 Baso # 0.1 PT INR APTT pCO2 39 pO2 78 L HCO3 26.1 ABG pH 7.43 ABG Total CO2 27.1 ABG O2 Saturation 98.9 H ABG O2 Content 10.8 L ABG Base Excess 1.5 ABG Hemoglobin 7.9 L ABG Carboxyhemoglobin 1.6 H POC ABG HHb (Measured) 1.1 ABG Methemoglobin 0.7 ABG O2 Capacity 10.9 L Andry Test Yes A-a O2 Difference 101.0 Hgb O2 Saturation 96.5 Vent Mode Nasal cannula FiO2 32.0 Sodium 148 Potassium 3.3 L Chloride 112 H Carbon Dioxide 24 Anion Gap 15 BUN 81 H Creatinine 4.3 H Est GFR ( Amer) 17 Est GFR (Non-Af Amer) 14 POC Glucose (mg/dL) Random Glucose 104 Calcium 8.7 Phosphorus 7.7 H Magnesium 2.4 H Total Bilirubin 0.3 AST 21 ALT 55 Alkaline Phosphatase 221 H Total Protein 5.6 L Albumin 2.7 L Globulin 2.9 Albumin/Globulin Ratio 1.0 Vitamin B1 Urine Myoglobin Serum Immunofixation HIV 1&2 Ag/Ab, 4th Gen TB Test (QFT) Nil TB Test Mitogen - Nil TB Test TB - Nil TB Test (QFT) Blood Type Antibody Screen Crossmatch BBK History Checked 07/03/17 07/03/17 07/03/17 06:55 10:10 11:31 WBC RBC Hgb Hct MCV MCH MCHC RDW Plt Count MPV Neut % (Auto) Lymph % (Auto) [place] % (Auto) Eos % (Auto) Baso % (Auto) Neut # Lymph # [place] # Eos # Baso # PT 13.8 H INR 1.2 APTT 37.5 H pCO2 pO2 HCO3 ABG pH ABG Total CO2 ABG O2 Saturation ABG O2 Content ABG Base Excess ABG Hemoglobin ABG Carboxyhemoglobin POC ABG HHb (Measured) ABG Methemoglobin ABG O2 Capacity Andry Test A-a O2 Difference Hgb O2 Saturation Vent Mode FiO2 Sodium Potassium Chloride Carbon Dioxide Anion Gap BUN Creatinine Est GFR ( Amer) Est GFR (Non-Af Amer) POC Glucose (mg/dL) 122 H Random Glucose Calcium Phosphorus Magnesium Total Bilirubin AST ALT Alkaline Phosphatase Total Protein Albumin Globulin Albumin/Globulin Ratio Vitamin B1 Urine Myoglobin Serum Immunofixation HIV 1&2 Ag/Ab, 4th Gen TB Test (QFT) Nil TB Test Mitogen - Nil TB Test TB - Nil TB Test (QFT) Blood Type A NEGATIVE Antibody Screen Negative Crossmatch See Detail BBK History Checked Patient has bt Fingerstick Blood Sugar Results: 165 <AdolfoErvin Cindy - Last Filed: 07/03/17 16:36> Assessment/Plan - Assessment and Plan (Free Text) Plan: Attestation: Patient seen and examined at the bedside with Resident Dr. Tita Magana; and I agree with his outline of plans and management documented above as discussed on AM rounds reflecting my review of all applicable clinical data, and participation in the care of the patient throughout the day in ICU; July 03, 2017.
--- NOTE | 2017-07-03 12:09 | RAD ---
HISTORY: tachypneic, extubated 07/02 COMPARISON: 07/02/2017 FINDINGS: LUNGS: Probable consolidation at left base. Obscured by pleural effusion. PLEURA: Moderate left and small right pleural effusion. No significant change compared to prior. CARDIOVASCULAR: Normal. OSSEOUS STRUCTURES: No significant abnormalities. VISUALIZED UPPER ABDOMEN: Normal. OTHER FINDINGS: None. IMPRESSION: Bilateral pleural effusion, left greater than right. Probable consolidation at left base peer
[2017-07-03] MEDS: Insulin Lispro (humaLOG) 100 Units/ml Inj SC SCH ×3 (13:08→22:27)
[2017-07-03] MEDS: Micafungin 100 MG in Sodium Chloride 0.9% 100 ML IVPB SCH (13:15)
--- NOTE | 2017-07-03 15:29 | CP.PCM.PN ---
Subjective - Date & Time of Evaluation Date of Evaluation: 07/03/17 Time of Evaluation: 12:30 - Subjective Subjective: Patient much more tachypneic today; pleural effusions noted to be increasing after extubation yesterday; remains NPO; Objective - Vital Signs/Intake and Output Vital Signs (last 24 hours): Temp Pulse Resp BP Pulse Ox 100.0 F H 81 30 H 166/64 H 100 07/03/17 12:00 07/03/17 13:20 07/03/17 13:52 07/03/17 13:20 07/03/17 12:00 Intake and Output: 07/03/17 07/03/17 06:59 18:59 Intake Total 300 200 Output Total 2800 Balance -2500 200 - Medications Medications: Current Medications Albuterol/Ipratropium (Duoneb 3 Mg/0.5 Mg (3 Ml) Ud) 3 ml INH RQID [facility] Last Admin: 07/03/17 12:04 Dose: 3 ml Bacitracin (Bacitracin Oint) 1 applic TOP TID [facility] Last Admin: 07/03/17 13:16 Dose: 1 applic Calcium Acetate (Phoslo) 2,001 mg PO WM [facility] Last Admin: 07/03/17 11:33 Dose: Not Given Dextrose (Dextrose 50% Inj) 0 ml IV STAT PRN; Protocol PRN Reason: Hypoglycemia Protocol Dextrose (Glutose 15) 0 gm PO ONCE PRN; Protocol PRN Reason: Hypoglycemia Protocol Enoxaparin Sodium (Lovenox) 30 mg SC DAILY [facility] PRN Reason: Protocol Last Admin: 07/03/17 09:45 Dose: 30 mg Epoetin Roel (Procrit) 10,000 unit SC MWF [facility] Last Admin: 07/02/17 09:44 Dose: 10,000 unit Ergocalciferol (Drisdol 50,000 Intl Units Cap) 1 cap PO Q7D [facility] Last Admin: 07/01/17 09:01 Dose: 1 cap Glucagon (Glucagen Diagnostic Kit) 0 mg IM STAT PRN; Protocol PRN Reason: Hypoglycemia Protocol Hydralazine HCl (Apresoline) 25 mg PO Q8 [facility] Last Admin: 07/03/17 09:47 Dose: Not Given Linezolid (Zyvox 600mg/300ml D5w) 600 mg in 300 mls @ 300 mls/hr IVPB Q12 [facility] PRN Reason: Protocol Last Admin: 07/03/17 11:26 Dose: 300 mls/hr Cefepime HCl 1 gm/ Sodium (Chloride) 100 mls @ 100 mls/hr IVPB DAILY [facility] PRN Reason: Protocol Last Admin: 07/03/17 09:34 Dose: 100 mls/hr Micafungin Sodium 100 mg/ (Sodium Chloride) 100 mls @ 100 mls/hr IVPB DAILY [facility] PRN Reason: Protocol Last Admin: 07/03/17 13:15 Dose: 100 mls/hr Insulin Human Lispro (Humalog) 0 units SC ACHS [facility] PRN Reason: Protocol Last Admin: 07/03/17 13:08 Dose: Not Given Metoprolol Tartrate (Lopressor) 5 mg IVP Q6 [facility] Pantoprazole Sodium (Protonix Ec Tab) 40 mg PO DAILY [facility] Last Admin: 07/03/17 09:46 Dose: Not Given Sodium Bicarbonate (Sodium Bicarbonate Tab) 1,300 mg PO Q8 [facility] Last Admin: 07/02/17 16:23 Dose: 1,300 mg Thiamine HCl (Vitamin B1 Tab) 100 mg PO BID [facility] Last Admin: 07/03/17 09:46 Dose: Not Given - Labs Labs: 07/03/17 06:55 07/03/17 06:54 PT 13.8 Seconds (9.8-13.1) H 07/03/17 06:55 INR 1.2 (0.9-1.2) 07/03/17 06:55 APTT 37.5 Seconds (25.6-37.1) H 07/03/17 06:55 - Constitutional Appears: Chronically Ill - Eye Exam Eye Exam: absent: Scleral icterus - Respiratory Exam Respiratory Exam: Decreased Breath Sounds, Respiratory Distress - Cardiovascular Exam Cardiovascular Exam: RRR, +S1, +S2 - GI/Abdominal Exam GI & Abdominal Exam: Soft. absent: Distended - Extremities Exam Additional comments: marked leg edema (somewhat improved) - Neurological Exam Neurological Exam: Alert, Awake Additional comments: follows commands; - Psychiatric Exam Psychiatric exam: absent: Agitated - Skin Skin Exam: Warm. absent: Cyanosis Assessment and Plan (1) Acute renal failure Assessment & Plan: CHINTAN on CKD in the setting of multiple ATN insults; new polyuria likely due to ATN recovery phase rather than diuretics alone (had been on the same dose of IV lasix since past few days); ideally should be given IVF to replenish losses but concern for worsening pleural effusions; -holding lasix for now -avoid dropping BP drastically (ok to keep SBP in 150's for now) -avoid nephrotoxic agents Status: Acute (2) Pleural effusion Assessment & Plan: Worsening effusions, now bilateral; patient requiring high flow O2; unclear why effusions recurring so rapidly (nephrotic syndrome may be contributory but patient with normal EF); agree with CT surgery eval; may need chest tube placement or at least in-dwelling pleurx catheter; diuresis alone not helping significantly (see I/O from yesterday); Status: Chronic (3) Hypothermia Status: Acute (4) Altered mental status Status: Acute (5) SIRS (systemic inflammatory response syndrome) Assessment & Plan: On cefepime, micafungin and linezolid, adequately dosed for CrCl < 15; continue same per ID recs; Status: Acute (6) Nephrotic syndrome Assessment & Plan: Poor overall renal prognosis; secondary to diabetic nephropathy 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
[2017-07-03] MEDS: Metoprolol 1 mg/ml Inj IVP SCH ×2 (16:28→22:18)
[2017-07-04] MEDS: Metoprolol 1 mg/ml Inj IVP SCH ×4 (03:30→22:00)
[2017-07-04 05:13] LABS: BASO # 0.1 K/uL (0.0-0.2); BASO % 1.2 % (0.0-2.0); EOS # 0.1 K/uL (0.0-0.7); EOS % 0.9 % (0.0-4.0); HEMOGLOBIN 8.2 g/dL (12.0-18.0); LYMPH # 1.2 K/uL (1.0-4.3); LYMPH % 12.9 % (20.0-40.0); MEAN CELL VOLUME 95.8 fl (80.0-94.0); MEAN CORPUSCULAR HEMOGLOBIN 30.7 pg (27.0-31.0); MEAN CORPUSCULAR HGB CONC 32.1 g/dL (33.0-37.0); MEAN PLATELET VOLUME 10.8 fl (7.2-11.7); MONO # 0.4 K/uL (0.0-0.8); MONO % 4.5 % (0.0-10.0); NEUT # 7.5 K/uL (1.8-7.0); NEUT % 80.5 % (50.0-75.0); NRBC % 0.1 % (0.0-0.0); RBC 2.66 Mil/uL (4.40-5.90); RED CELL DISTRIBUTION WIDTH 17.1 % (11.5-14.5); WHITE BLOOD COUNT 9.3 K/uL (4.8-10.8)
[2017-07-04 05:27] LABS: ALB/GLOB RATIO 0.9 (1.0-2.1); ALBUMIN 2.8 g/dL (3.5-5.0); CALCIUM 8.6 mg/dL (8.4-10.2)
[2017-07-04 05:31] LABS: T4 5.58 ug/dl (5.5-11.0)
[2017-07-04] MEDS ORDERED: Propofol 10 mg/ml 1,000 MG/100 ML VIAL ONE (05:34)
--- NOTE | 2017-07-04 05:53 | PCM.PROC ---
Procedures Attestation:: I certify that I have explained the specified Operation(s) or Procedure(s), risks, benefits and reasonable alternatives to the Patient and/or other person responsible. The opportunity was given to ask questions and all questions answered - Intubation Time Out Performed: Yes Sedative: Other (Propofol) Laryngoscope: Home ET Tube Size: 8.0 ET Tube Uncuffed: No ET Tube Secured Locarion: Teeth ET Tube Placement Confirmation: Visualized Passing Through Cords, Breath Sounds Equal Bilaterally, No Breath Sounds Over Epigastrum, Confirmation w/Capnometry Patient Tolerated Procedure: Well, No Complications Procedure Immediate Complications: None Additional comments: Patient became acutely unresponsive and bradycardic to 32, and was emergently intubated.
[2017-07-04 06:32] LABS: ABG ALLEN TEST YES
[2017-07-04 06:34] LABS: ARTERIAL BLOOD GAS HEMOGLOBIN 8.8 g/dL (11.7-17.4); ARTERIAL BLOOD GAS O2 CONTENT 5.9 ML/dL (15-23); ARTERIAL BLOOD GAS PCO2 48 mm/Hg (35-45); ARTERIAL BLOOD GAS PH 7.34 (7.35-7.45); ARTERIAL BLOOD GAS PO2 26 mm/Hg (80-100); ARTERIAL BLOOD GAS TCO2 27.4 mmol/L (22-28)
[2017-07-04 07:57] LABS: PROTHROMBIN TIME 12.9 Seconds (9.8-13.1)
[2017-07-04 07:58] LABS: INR 1.2 (0.9-1.2); PARTIAL THROMBOPLASTIN TIME 35.9 Seconds (25.6-37.1)
--- NOTE | 2017-07-04 08:13 | CP.PCM.PN ---
Subjective - Date & Time of Evaluation Date of Evaluation: 07/04/17 Time of Evaluation: 07:00 - Subjective Subjective: Patient seen and examined bedside in ICU. Patient become unresponsive and bradycardic this morning and needed intubation. Comatose, able to open eyes on verbal stimuli. Vent mode AC peep 5 , RR 14, Fio2 50%. [place] on normal urine color 200 ml. Objective - Vital Signs/Intake and Output Vital Signs (last 24 hours): Temp Pulse Resp BP Pulse Ox 98.7 F 75 30 H 147/65 100 07/04/17 08:02 07/04/17 08:02 07/04/17 08:02 07/04/17 08:02 07/04/17 08:02 Intake and Output: 07/04/17 07/04/17 06:59 18:59 Intake Total 850 Output Total 750 Balance 100 - Medications Medications: Current Medications Albuterol/Ipratropium (Duoneb 3 Mg/0.5 Mg (3 Ml) Ud) 3 ml INH RQID [facility] Last Admin: 07/03/17 19:31 Dose: 3 ml Bacitracin (Bacitracin Oint) 1 applic TOP TID [facility] Last Admin: 07/03/17 16:31 Dose: 1 applic Calcium Acetate (Phoslo) 2,001 mg PO WM [facility] Last Admin: 07/03/17 17:29 Dose: Not Given Dextrose (Dextrose 50% Inj) 0 ml IV STAT PRN; Protocol PRN Reason: Hypoglycemia Protocol Dextrose (Glutose 15) 0 gm PO ONCE PRN; Protocol PRN Reason: Hypoglycemia Protocol Enoxaparin Sodium (Lovenox) 30 mg SC DAILY [facility] PRN Reason: Protocol Last Admin: 07/03/17 09:45 Dose: 30 mg Epoetin Roel (Procrit) 10,000 unit SC MWF [facility] Last Admin: 07/02/17 09:44 Dose: 10,000 unit Ergocalciferol (Drisdol 50,000 Intl Units Cap) 1 cap PO Q7D [facility] Last Admin: 07/01/17 09:01 Dose: 1 cap Glucagon (Glucagen Diagnostic Kit) 0 mg IM STAT PRN; Protocol PRN Reason: Hypoglycemia Protocol Hydralazine HCl (Apresoline) 25 mg PO Q8 [facility] Last Admin: 07/04/17 01:00 Dose: Not Given Linezolid (Zyvox 600mg/300ml D5w) 600 mg in 300 mls @ 300 mls/hr IVPB Q12 [facility] PRN Reason: Protocol Last Admin: 07/03/17 20:41 Dose: 300 mls/hr Cefepime HCl 1 gm/ Sodium (Chloride) 100 mls @ 100 mls/hr IVPB DAILY [facility] PRN Reason: Protocol Last Admin: 07/03/17 09:34 Dose: 100 mls/hr Micafungin Sodium 100 mg/ (Sodium Chloride) 100 mls @ 100 mls/hr IVPB DAILY [facility] PRN Reason: Protocol Last Admin: 07/03/17 13:15 Dose: 100 mls/hr Propofol (Diprivan) 1,000 mg in 100 mls @ 2.082 mls/hr IV .Q24H [facility]; 5 MCG/KG/ MIN PRN Reason: Protocol Stop: 07/05/17 05:57 Levetiracetam 750 mg/ Sodium (Chloride) 107.5 mls @ 215 mls/hr IVPB ONCE ONE Stop: 07/04/17 08:23 Levetiracetam 500 mg/ Sodium (Chloride) 105 mls @ 210 mls/hr IVPB Q12 [facility] Insulin Human Lispro (Humalog) 0 units SC ACHS [facility] PRN Reason: Protocol Last Admin: 07/03/17 22:27 Dose: Not Given Metoprolol Tartrate (Lopressor) 5 mg IVP Q6 [facility] Last Admin: 07/04/17 03:30 Dose: 5 mg Pantoprazole Sodium (Protonix Inj) 40 mg IVP DAILY [facility] Sodium Bicarbonate (Sodium Bicarbonate Tab) 1,300 mg PO Q8 [facility] Last Admin: 07/02/17 16:23 Dose: 1,300 mg Thiamine HCl (Vitamin B1 Tab) 100 mg PO BID [facility] Last Admin: 07/03/17 16:35 Dose: Not Given - Labs Labs: 07/04/17 04:40 07/04/17 04:40 PT 12.9 Seconds (9.8-13.1) 07/04/17 04:40 INR 1.2 (0.9-1.2) 07/04/17 04:40 APTT 35.9 Seconds (25.6-37.1) 07/04/17 04:40 - Constitutional Appears: Non-toxic, No Acute Distress - Head Exam Head Exam: ATRAUMATIC, NORMOCEPHALIC - Eye Exam Eye Exam: Normal appearance - ENT Exam ENT Exam: Mucous Membranes Moist - Neck Exam Neck Exam: Normal Inspection - Respiratory Exam Respiratory Exam: Decreased Breath Sounds. absent: Rales, Rhonchi, Wheezes Additional comments: b/L bibasal - Cardiovascular Exam Cardiovascular Exam: REGULAR RHYTHM, +S1, +S2 - GI/Abdominal Exam GI & Abdominal Exam: Soft, Normal Bowel Sounds. absent: Tenderness - Extremities Exam Extremities Exam: Pedal Edema Additional comments: left foot 1+, b/l thigh 1+ - Neurological Exam Neurological Exam: Awake Additional comments: comatose on ventilator Assessment and Plan - Assessment and Plan (Free Text) Plan: 66 yo M w/ pmh of htn, dm, CKD IIIB w/ 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, monoclonal gammopathy, recurrent L pleural effusion, admitted for sepsis, Hypothermia, CHINTAN on CKD Assessment/Plan 1) Acute Respiratory Failure secondary to worsening pleural effusion on nephrotic syndrome -Admitted ICU -s/p cardiac arrest 5 days ago with ROSC after 4 min and 2 rounds of epi -Patient extubated yesterday, and reintubated again this morning. A/C peep5 RR 14 Fio2 50 % -ABG Ph normal, hypoxemia PO2 26 before intubation -sputum fungus cx: preliminary neg. on mycamine -f/u CXR, ABG 2) Recurrent Left Pleural effusion - S/P left thoracocentesis before admission to ICU: Removed 1.2 L of straw colored fluid. Cx neg for bact adn fungis -Transudate pleural fluid: Total serum Protein:5.5, Plerual fluid protein: 2, serum LDH: 689, Pleural fluid LDH: 323: Positive lights criteria - CXR mild improvement of pleural effusion while on lasix. Lasix Dc yesterday - IR consult suggested -Pulmonology consult appreciated -quantiferon gold:indeterminate 3) HAP -resolving -recent admission before 06/22 -CXR: pleural effusions b/l and atelectasis or infiltrates difficult to exclude -c/w cefepime day # 9, linezolid day # 10 -Procalcitonin 14.4 trending down 7.3 4) Sepsis -resolving - SIRS (hypothermia,tachypnea,leukocytosis) - CXR: b/l lower lobe infiltrates and small pleural effusions - ID consult appreciated: Added Mycamine - C/W Maxapine day # 9 and Linozolid day # 10 -Procalcitonin 14.4 trending down 7.3 5) Nephrotic Syndrome -secondary to DM nepropathy -Kidney biopsy 06/05/17: Diabetic nephropathy, nodular glomerulosclerosis, associated with aprox 40 % globally sclerosed glomeruli( calss III), 10-15 % segmentally sclerosed glomeruli, docal moderate interstitial fibrosis and mod vascular sclerosis, including marked hyaline arteriolosclerosis.NO EVIDENCE OF MONOCLONAL LIGHT OR HEAVY CHAIN-RELATED RENAL DISEASE. 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 -Renal duplex: no renal vein thrombosis - HIV test neg -Lasix dc yesterday 6) CHINTAN on CKD stage 4 w/ new onset of ATN - Worsening of CKD from stage 3 to stage 4 secondary to CHINTAN - Nephorologist consult appreciated: Advised to continue KEVIN inhibition and DM control. no HD for now -c/w oral bicarbonate, vit d, calcium acetate. Lasix DC yesterday - F/U with morning CMP 7) Thrombocytopenia -may be secondary to bone marrow suppresion secondary to nephrotic syndrome. -PLt 82-88-83 -F/U CBC 8) Hypothyroidism -TSH 5.58, Ft4 0.7 -Econdrinologist consult appreciated: will repeat thyroid labs, ab, high prolactin could be related to not good clearance due to CHINTAN or microadenoma. -MRI brain today 9) Hyperprolactinemia -Pralactin level 95-58 trending down -Endocrionologist consult suggested: will repeat thyroid labs, ab, high prolactin could be related to not good clearance due to CHINTAN or microadenoma. MRI brain when pt stable. -f/u serial prolactin levels. -MRI brain today 10) Pressure Ulcer and TDI -Sacral region stage 2 -wound care consult appreciated 11) Hypothermia -resolved -secondary to sepsis/hypothryroidism -3 episodes of hypothermia -Bear hugger - Neuro consult appreciated: MRI suggested. last MRI 05/2017 no abnormality on thalamus -MRI brain today 12) UTI ( Resolved) - on admission Initial Urine Culture: > 100,000 gram positive coci coagulase negative. Similar to previous admission - Repeat Urine Culture is negative for bacteria but now growing yeasts. - C/W Maxapine and Linozolid 13) Monoclonal Gammopathy -Bone marrow biopsy 05/05/17 hypocellular bone marrow with scattered plasma cells. no evidence of overt or advanced myelodysplasia, acute leukemia, met neoplasm or lymphoma. - Hemo-Onc consult suggested: no multiple myeloma 14) Acute diastolic CHF secondary to pulmonary edema and fluid overload -ProBNP 3500 -Echo 05/31/17 normal EF 60-65% -c/w labetalol, hydralazine 15) DM 2 -home meds hold -SSI -Hga1c 7.2 04/2017 16) HTN - Hydralazine 25 Q8 reduced by starter mechanic. To keep systolic BP 150 - Labetalol 5m IV PRN 17) Anemia -secondary to CKD/sepsis - HB: 8.2 improved w/o transfusion -no transfucion givent due to lack of consent. pt intubated. - C/W procrit 18) DVT prophylaxis -Lovenox 30 mg sc (renal dose Cr CL 18) 19) GI prophylaxis -Pantoprazol 40 mg IV
[2017-07-04] MEDS: Bacitracin OINT 15GM TOP SCH ×3 (08:56→16:03)
[2017-07-04] MEDS: Cefepime 1 GM in Sodium Chloride 0.9% 100 ML IVPB SCH (09:00)
[2017-07-04] MEDS: Enoxaparin 30 mg Syringe SC SCH (09:00)
--- NOTE | 2017-07-04 09:01 | RAD ---
PROCEDURE: CHEST RADIOGRAPH, 1 VIEW HISTORY: pleural effusion COMPARISON: Portable chest 07/03/2017. FINDINGS: LUNGS: The image appears more erect positioned with probable mildly diminishing left pleural effusion and minimal unchanged right pleural effusion noted. Underlying atelectasis or infiltrates not excluded both lungs bases, left greater than right. Cardiac size is stable. No definite pulmonary vascular derangement or pneumothorax. PLEURA: As above CARDIOVASCULAR: As above OSSEOUS STRUCTURES: No significant abnormalities. VISUALIZED UPPER ABDOMEN: Normal. OTHER FINDINGS: None. IMPRESSION: Likely diminishing left pleural effusion remaining greater than that seen on the right significantly. Underlying bilateral basilar infiltrates or atelectasis remain difficult to exclude.
[2017-07-04] MEDS: EPOETIN ALFA 10,000 UNIT/ML ML SC SCH (09:03)
[2017-07-04] MEDS: Albuterol-Ipratrop 3 mg / 0.5 (3 ml) UD INH SCH ×4 (09:04→19:06)
[2017-07-04] MEDS: Linezolid 600 mg in D5W 300 ml 600 MG/300 ML BAG IVPB SCH ×2 (09:05→20:05)
--- NOTE | 2017-07-04 09:31 | RAD ---
HISTORY: newly intubated COMPARISON: Chest radiograph 07/04/2017 FINDINGS: Endotracheal tube is in place terminating approximately 3 cm above the endy. LUNGS: Increased opacity is seen in both bases once again suspicious for bilateral basilar infiltrates. PLEURA: Moderate left pleural effusion persists with right pleural effusion diminished if not resolved. CARDIOVASCULAR: Cardiac silhouette is stable. No definite pulmonary vascular derangement appreciated. OSSEOUS STRUCTURES: No significant abnormalities. VISUALIZED UPPER ABDOMEN: Normal. OTHER FINDINGS: None. IMPRESSION: Adequate endotracheal intubation. Persistent bilateral basilar infiltrates as well as moderate left pleural effusion. Diminished or resolved right pleural effusion.
[2017-07-04] MEDS: Propofol 10 mg/ml 1,000 MG/100 ML VIAL IV SCH (09:38)
--- NOTE | 2017-07-04 10:03 | CP.CCUPN ---
<Lori Magana - Last Filed: 07/04/17 11:13> CCU Subjective - Physician Review Subjective (Free Text): Patient intubated emergently overnight, he was acutely unresponsive and bradycardic. Lethargic this morning, no sedation. Appears less edematous this morning. Repeat ABG Patients vital signs reviewed. All labs and imaging reviewed. Hg 8.2, Plts: 83 07/03/17: CRP 136. Procalcitonin 7.1 Prolactin 58 CXR: Adequate endotracheal intubation. Persistent bilateral basilar infiltrates as well as moderate left pleural effusion. Diminished or resolved right pleural effusion. Assessment: 66 year old male with PMH of HTN, CKD, nephrotic syndrome, chronic left sided pleural effusion admitted for hypothermia, AMS with acute hypercapnia respiratory failure on 06/22, subsequently developed acute hypoxic respiratory failure, cardiac arrest required intubation on 06/29/17. Patient was extubated on 07/02/17. Patient was intubated on 07/04/17. Pt was acutely unresponsive and bradycardic. ABG revealed hypoxia. Prolactin level was repeated on 07/03 to assess for seizures, remains elevated at 58. 3, previously 95. although it is trending down. His EEG report is still pending, will get MRI today and start Keppra. Procalcitonin level trending down, now 7.1 His EEG report is pending. 1. Acute Respiratory Failure 2. Chronic/Recurrent Pleural Effusion 3. UTI 4. Anasarca 5. Thrombocytopenia, acute 6. Acute Renal Failure 7. Nephrotic Syndrome in setting of CKD 8. Hypertension 9. Anemia, chronic 10.Diabetes Mellitus, type 2 11.Prophylaxis DVT/GI Plan: - F/u repeat ABG - EEG pending. Will get MRI/CT head - Started on Keppra - Will discuss goals of care with primary team. - Monitor I/Os Case discussed with Dr. Mata. [place] PGY2 CCU Objective - Vital Signs / Intake & Output Vital Signs (Last 4 hours): Vital Signs Temp Pulse Resp BP Pulse Ox 07/04/17 08:59 77 155/63 H 07/04/17 08:56 77 155/63 H 07/04/17 08:02 98.7 F 75 30 H 147/65 100 07/04/17 07:00 76 14 147/65 100 07/04/17 06:00 80 100 H 150/64 26 L Intake and Output (Last 8hrs): Intake & Output 07/03/17 07/04/17 07/04/17 22:59 06:59 14:59 Intake Total 490 530 500 Output Total 1300 550 Balance -810 -20 500 Intake: IV 320 530 Intake, Piggyback 170 500 Output: Urine 1300 550 Urethral (Salazar) 1300 550 Other: # Bowel Movements 1 - Physical Exam Head: Positive for: Atraumatic, Normocephalic Pupils: Positive for: PERRL Mouth: Positive for: Moist Mucous Membranes Nose (External): Positive for: Lesions (on nose brown scab) Respiratory/Chest: Positive for: Good Air Exchange, Respiratory Distress (mild) , Decreased Breath Sounds (clear to auscultation exccept for right lung base has rales, left lung decreased breath sounds). Negative for: Wheezes, Retracting, Rhonchi Cardiovascular: Positive for: Regular Rate and Rhythm, Murmurs. Negative for: Tachycardic, Bradycardic Abdomen: Positive for: Normal Bowel Sounds. Negative for: Tenderness, Distention, Peritoneal Signs Genitourinary Male: Positive for: Penile Swelling, Testicle Swelling Upper Extremity: Positive for: Edema (bilaterallly, 1+ pitting ) Lower Extremity: Positive for: Edema (trace). Negative for: Tenderness Neurological: Positive for: Other (awake and alert, intubated, following commands) Skin: Positive for: Warm, Dry, Other (gauze on back of left hand) Psychiatric: Positive for: Other (drowsy, arousable ) - Medications Active Medications: Active Medications Generic Name Dose Route Start Last Admin Trade Name Freq PRN Reason Stop Dose Admin Albuterol/Ipratropium 3 ml 06/28/17 16:00 07/04/17 09:04 Duoneb 3 Mg/0.5 Mg (3 Ml) Ud INH 3 ml RQID THOMAS Administration Bacitracin 1 applic 06/27/17 13:00 07/04/17 08:56 Bacitracin Oint TOP 1 applic TID THOMAS Administration Calcium Acetate 2,001 mg 06/24/17 18:30 07/03/17 17:29 Phoslo PO Not Given WM THOMAS Dextrose 0 ml 06/22/17 22:36 Dextrose 50% Inj IV STAT PRN Hypoglycemia Protocol Protocol Dextrose 0 gm 06/22/17 22:36 Glutose 15 PO ONCE PRN Hypoglycemia Protocol Protocol Enoxaparin Sodium 30 mg 07/02/17 09:00 07/04/17 09:00 Lovenox SC 30 mg DAILY THOMAS Administration Protocol Epoetin Roel 10,000 unit 06/23/17 13:00 07/04/17 09:03 Procrit SC 10,000 unit MWF THOMAS Administration Ergocalciferol 1 cap 06/24/17 10:00 07/01/17 09:01 Drisdol 50,000 Intl Units Cap PO 1 cap Q7D THOMAS Administration Glucagon 0 mg 06/22/17 22:36 Glucagen Diagnostic Kit IM STAT PRN Hypoglycemia Protocol Protocol Hydralazine HCl 25 mg 07/02/17 01:00 07/04/17 08:56 Apresoline PO 25 mg Q8 THOMAS Administration Linezolid 600 mg in 300 mls @ 300 mls/hr 06/25/17 21:00 07/04/17 09:05 Zyvox 600mg/300ml D5w IVPB 300 mls/hr Q12 THOMAS Administration Protocol Cefepime HCl 1 gm/ Sodium 100 mls @ 100 mls/hr 06/26/17 09:00 07/04/17 09:00 Chloride IVPB 100 mls/hr DAILY THOMAS Administration Protocol Micafungin Sodium 100 mg/ 100 mls @ 100 mls/hr 07/01/17 13:45 07/03/17 13:15 Sodium Chloride IVPB 100 mls/hr DAILY THOMAS Administration Protocol Propofol 1,000 mg in 100 mls @ 2.082 mls/hr 07/04/17 06:00 07/04/17 09:38 Diprivan IV 07/05/17 05:57 5 mcg/kg/min .Q24H THOMAS 2.082 mls/hr Protocol Administration 5 MCG/KG/MIN Levetiracetam 500 mg/ Sodium 105 mls @ 210 mls/hr 07/04/17 21:00 Chloride IVPB Q12 THOMAS Insulin Human Lispro 0 units 06/23/17 07:30 07/03/17 22:27 Humalog SC Not Given ACHS THOMAS Protocol Metoprolol Tartrate 5 mg 07/03/17 15:24 07/04/17 08:59 Lopressor IVP 5 mg Q6 THOMAS Administration Pantoprazole Sodium 40 mg 07/04/17 09:00 07/04/17 09:04 Protonix Inj IVP 40 mg DAILY THOMAS Administration Sodium Bicarbonate 1,300 mg 06/30/17 17:00 07/02/17 16:23 Sodium Bicarbonate Tab PO 1,300 mg Q8 THOMAS Administration Thiamine HCl 100 mg 06/24/17 21:30 07/04/17 09:05 Vitamin B1 Tab PO 100 mg BID THOMAS Administration - Patient Studies Lab Studies: Microbiology Studies 07/01/17 10:01 Fungal Culture - Preliminary Sputum 06/28/17 11:05 Blood Culture - Final Blood NO GROWTH AFTER 5 DAYS Gram Stain - Final TEST NOT PERFORMED Lab Studies 07/04/17 07/04/17 07/04/17 Range/Units 05:25 04:40 04:40 WBC (4.8-10.8) K/uL RBC (4.40-5.90) Mil/uL Hgb (12.0-18.0) g/dL Hct (35.0-51.0) % MCV (80.0-94.0) fl MCH (27.0-31.0) pg MCHC (33.0-37.0) g/dL RDW (11.5-14.5) % Plt Count (130-400) K/uL MPV (7.2-11.7) fl Neut % (Auto) (50.0-75.0) % Lymph % (Auto) (20.0-40.0) % [place] % (Auto) (0.0-10.0) % Eos % (Auto) (0.0-4.0) % Baso % (Auto) (0.0-2.0) % Neut # (1.8-7.0) K/uL Lymph # (1.0-4.3) K/uL [place] # (0.0-0.8) K/uL Eos # (0.0-0.7) K/uL Baso # (0.0-0.2) K/uL PT (9.8-13.1) Seconds INR (0.9-1.2) APTT (25.6-37.1) Seconds pCO2 48 H (35-45) mm/Hg pO2 26 L* (80-100) mm/Hg HCO3 24.0 (21-28) mmol/L ABG pH 7.34 L (7.35-7.45) ABG Total CO2 27.4 (22-28) mmol/L ABG O2 Saturation 49.0 L (95-98) % ABG O2 Content 5.9 L (15-23) ML/dL ABG Base Excess -0.1 (-2.0-3.0) mmol/L ABG Hemoglobin 8.8 L (11.7-17.4) g/dL ABG Carboxyhemoglobin 0.9 (0.5-1.5) % POC ABG HHb (Measured) 49.6 H (0.0-5.0) % ABG Methemoglobin 1.8 (0.0-3.0) % ABG O2 Capacity 12.0 L (16-24) mL/dL Andry Test Yes A-a O2 Difference 342.0 mm/Hg Hgb O2 Saturation 47.7 L (95.0-98.0) % Liter Flow 20 Vent Mode Hfov Mechanical Rate 14 FiO2 60.0 % Tidal Volume 400 PEEP 5 Crit Value Called To Dr castano Crit Value Called By 6012 Crit Value Read Back Y Blood Gas Notified Time 528 Sodium 148 (132-148) mmol/l Potassium 3.7 (3.6-5.0) MMOL/L Chloride 114 H (98-107) mmol/L Carbon Dioxide 27 (22-30) mmol/L Anion Gap 11 (10-20) BUN 81 H (9-20) mg/dl Creatinine 4.3 H (0.8-1.5) mg/dl Est GFR ( Amer) 17 Est GFR (Non-Af Amer) 14 POC Glucose (mg/dL) (65-110) mg/dL Random Glucose 112 H (75-110) mg/dL Calcium 8.6 (8.4-10.2) mg/dL Total Bilirubin 0.4 (0.2-1.3) mg/dl AST 22 (17-59) U/L ALT 53 (21-72) U/L Alkaline Phosphatase 211 H (38-126) U/L C-Reactive Prot, Quant (<8.0) mg/L Total Protein 5.9 L (6.3-8.2) G/DL Albumin 2.8 L (3.5-5.0) g/dL Globulin 3.1 (2.2-3.9) gm/dL Albumin/Globulin Ratio 0.9 L (1.0-2.1) Procalcitonin (0.19-0.49) NG/ML Free T4 0.70 L (0.78-2.19) ng/dL Thyroxine (T4) 5.58 (5.5-11.0) ug/dl TSH 3rd Generation 5.55 H (0.46-4.68) mIU/ML Prolactin (3.7-17.9) ng/mL Thyroglobulin Antibody (< OR = 1) IU/mL Beta-(1,3)-D-Glucan pg/mL B-(1,3)-D-Glucan Intrp Blood Type Antibody Screen Crossmatch BBK History Checked 07/04/17 07/04/17 07/04/17 Range/Units 04:40 04:40 04:18 WBC 9.3 (4.8-10.8) K/uL RBC 2.66 L (4.40-5.90) Mil/uL Hgb 8.2 L (12.0-18.0) g/dL Hct 25.5 L (35.0-51.0) % MCV 95.8 H D (80.0-94.0) fl MCH 30.7 (27.0-31.0) pg MCHC 32.1 L (33.0-37.0) g/dL RDW 17.1 H (11.5-14.5) % Plt Count 83 L (130-400) K/uL MPV 10.8 (7.2-11.7) fl Neut % (Auto) 80.5 H (50.0-75.0) % Lymph % (Auto) 12.9 L (20.0-40.0) % [place] % (Auto) 4.5 (0.0-10.0) % Eos % (Auto) 0.9 (0.0-4.0) % Baso % (Auto) 1.2 (0.0-2.0) % Neut # 7.5 H (1.8-7.0) K/uL Lymph # 1.2 (1.0-4.3) K/uL [place] # 0.4 (0.0-0.8) K/uL Eos # 0.1 (0.0-0.7) K/uL Baso # 0.1 (0.0-0.2) K/uL PT 12.9 (9.8-13.1) Seconds INR 1.2 (0.9-1.2) APTT 35.9 (25.6-37.1) Seconds pCO2 (35-45) mm/Hg pO2 (80-100) mm/Hg HCO3 (21-28) mmol/L ABG pH (7.35-7.45) ABG Total CO2 (22-28) mmol/L ABG O2 Saturation (95-98) % ABG O2 Content (15-23) ML/dL ABG Base Excess (-2.0-3.0) mmol/L ABG Hemoglobin (11.7-17.4) g/dL ABG Carboxyhemoglobin (0.5-1.5) % POC ABG HHb (Measured) (0.0-5.0) % ABG Methemoglobin (0.0-3.0) % ABG O2 Capacity (16-24) mL/dL Andry Test A-a O2 Difference mm/Hg Hgb O2 Saturation (95.0-98.0) % Liter Flow Vent Mode Mechanical Rate FiO2 % Tidal Volume PEEP Crit Value Called To Crit Value Called By Crit Value Read Back Blood Gas Notified Time Sodium (132-148) mmol/l Potassium (3.6-5.0) MMOL/L Chloride (98-107) mmol/L Carbon Dioxide (22-30) mmol/L Anion Gap (10-20) BUN (9-20) mg/dl Creatinine (0.8-1.5) mg/dl Est GFR ( Amer) Est GFR (Non-Af Amer) POC Glucose (mg/dL) 106 (65-110) mg/dL Random Glucose (75-110) mg/dL Calcium (8.4-10.2) mg/dL Total Bilirubin (0.2-1.3) mg/dl AST (17-59) U/L ALT (21-72) U/L Alkaline Phosphatase (38-126) U/L C-Reactive Prot, Quant (<8.0) mg/L Total Protein (6.3-8.2) G/DL Albumin (3.5-5.0) g/dL Globulin (2.2-3.9) gm/dL Albumin/Globulin Ratio (1.0-2.1) Procalcitonin (0.19-0.49) NG/ML Free T4 (0.78-2.19) ng/dL Thyroxine (T4) (5.5-11.0) ug/dl TSH 3rd Generation (0.46-4.68) mIU/ML Prolactin (3.7-17.9) ng/mL Thyroglobulin Antibody (< OR = 1) IU/mL Beta-(1,3)-D-Glucan pg/mL B-(1,3)-D-Glucan Intrp Blood Type Antibody Screen Crossmatch BBK History Checked 07/03/17 07/03/17 07/03/17 Range/Units 22:27 16:56 11:31 WBC (4.8-10.8) K/uL RBC (4.40-5.90) Mil/uL Hgb (12.0-18.0) g/dL Hct (35.0-51.0) % MCV (80.0-94.0) fl MCH (27.0-31.0) pg MCHC (33.0-37.0) g/dL RDW (11.5-14.5) % Plt Count (130-400) K/uL MPV (7.2-11.7) fl Neut % (Auto) (50.0-75.0) % Lymph % (Auto) (20.0-40.0) % [place] % (Auto) (0.0-10.0) % Eos % (Auto) (0.0-4.0) % Baso % (Auto) (0.0-2.0) % Neut # (1.8-7.0) K/uL Lymph # (1.0-4.3) K/uL [place] # (0.0-0.8) K/uL Eos # (0.0-0.7) K/uL Baso # (0.0-0.2) K/uL PT (9.8-13.1) Seconds INR (0.9-1.2) APTT (25.6-37.1) Seconds pCO2 (35-45) mm/Hg pO2 (80-100) mm/Hg HCO3 (21-28) mmol/L ABG pH (7.35-7.45) ABG Total CO2 (22-28) mmol/L ABG O2 Saturation (95-98) % ABG O2 Content (15-23) ML/dL ABG Base Excess (-2.0-3.0) mmol/L ABG Hemoglobin (11.7-17.4) g/dL ABG Carboxyhemoglobin (0.5-1.5) % POC ABG HHb (Measured) (0.0-5.0) % ABG Methemoglobin (0.0-3.0) % ABG O2 Capacity (16-24) mL/dL Andry Test A-a O2 Difference mm/Hg Hgb O2 Saturation (95.0-98.0) % Liter Flow Vent Mode Mechanical Rate FiO2 % Tidal Volume PEEP Crit Value Called To Crit Value Called By Crit Value Read Back Blood Gas Notified Time Sodium (132-148) mmol/l Potassium (3.6-5.0) MMOL/L Chloride (98-107) mmol/L Carbon Dioxide (22-30) mmol/L Anion Gap (10-20) BUN (9-20) mg/dl Creatinine (0.8-1.5) mg/dl Est GFR ( Amer) Est GFR (Non-Af Amer) POC Glucose (mg/dL) 141 H 151 H 122 H (65-110) mg/dL Random Glucose (75-110) mg/dL Calcium (8.4-10.2) mg/dL Total Bilirubin (0.2-1.3) mg/dl AST (17-59) U/L ALT (21-72) U/L Alkaline Phosphatase (38-126) U/L C-Reactive Prot, Quant (<8.0) mg/L Total Protein (6.3-8.2) G/DL Albumin (3.5-5.0) g/dL Globulin (2.2-3.9) gm/dL Albumin/Globulin Ratio (1.0-2.1) Procalcitonin (0.19-0.49) NG/ML Free T4 (0.78-2.19) ng/dL Thyroxine (T4) (5.5-11.0) ug/dl TSH 3rd Generation (0.46-4.68) mIU/ML Prolactin (3.7-17.9) ng/mL Thyroglobulin Antibody (< OR = 1) IU/mL Beta-(1,3)-D-Glucan pg/mL B-(1,3)-D-Glucan Intrp Blood Type Antibody Screen Crossmatch BBK History Checked 07/03/17 07/03/17 07/03/17 Range/Units 10:10 10:10 09:54 WBC (4.8-10.8) K/uL RBC (4.40-5.90) Mil/uL Hgb (12.0-18.0) g/dL Hct (35.0-51.0) % MCV (80.0-94.0) fl MCH (27.0-31.0) pg MCHC (33.0-37.0) g/dL RDW (11.5-14.5) % Plt Count (130-400) K/uL MPV (7.2-11.7) fl Neut % (Auto) (50.0-75.0) % Lymph % (Auto) (20.0-40.0) % [place] % (Auto) (0.0-10.0) % Eos % (Auto) (0.0-4.0) % Baso % (Auto) (0.0-2.0) % Neut # (1.8-7.0) K/uL Lymph # (1.0-4.3) K/uL [place] # (0.0-0.8) K/uL Eos # (0.0-0.7) K/uL Baso # (0.0-0.2) K/uL PT (9.8-13.1) Seconds INR (0.9-1.2) APTT (25.6-37.1) Seconds pCO2 (35-45) mm/Hg pO2 (80-100) mm/Hg HCO3 (21-28) mmol/L ABG pH (7.35-7.45) ABG Total CO2 (22-28) mmol/L ABG O2 Saturation (95-98) % ABG O2 Content (15-23) ML/dL ABG Base Excess (-2.0-3.0) mmol/L ABG Hemoglobin (11.7-17.4) g/dL ABG Carboxyhemoglobin (0.5-1.5) % POC ABG HHb (Measured) (0.0-5.0) % ABG Methemoglobin (0.0-3.0) % ABG O2 Capacity (16-24) mL/dL Andry Test A-a O2 Difference mm/Hg Hgb O2 Saturation (95.0-98.0) % Liter Flow Vent Mode Mechanical Rate FiO2 % Tidal Volume PEEP Crit Value Called To Crit Value Called By Crit Value Read Back Blood Gas Notified Time Sodium (132-148) mmol/l Potassium (3.6-5.0) MMOL/L Chloride (98-107) mmol/L Carbon Dioxide (22-30) mmol/L Anion Gap (10-20) BUN (9-20) mg/dl Creatinine (0.8-1.5) mg/dl Est GFR ( Amer) Est GFR (Non-Af Amer) POC Glucose (mg/dL) (65-110) mg/dL Random Glucose (75-110) mg/dL Calcium (8.4-10.2) mg/dL Total Bilirubin (0.2-1.3) mg/dl AST (17-59) U/L ALT (21-72) U/L Alkaline Phosphatase (38-126) U/L C-Reactive Prot, Quant 136.6 H (<8.0) mg/L Total Protein (6.3-8.2) G/DL Albumin (3.5-5.0) g/dL Globulin (2.2-3.9) gm/dL Albumin/Globulin Ratio (1.0-2.1) Procalcitonin 7.13 H (0.19-0.49) NG/ML Free T4 (0.78-2.19) ng/dL Thyroxine (T4) (5.5-11.0) ug/dl TSH 3rd Generation (0.46-4.68) mIU/ML Prolactin (3.7-17.9) ng/mL Thyroglobulin Antibody (< OR = 1) IU/mL Beta-(1,3)-D-Glucan pg/mL B-(1,3)-D-Glucan Intrp Blood Type A NEGATIVE Antibody Screen Negative Crossmatch See Detail BBK History Checked Patient has bt 07/03/17 07/02/17 07/01/17 Range/Units 09:54 04:45 12:06 WBC (4.8-10.8) K/uL RBC (4.40-5.90) Mil/uL Hgb (12.0-18.0) g/dL Hct (35.0-51.0) % MCV (80.0-94.0) fl MCH (27.0-31.0) pg MCHC (33.0-37.0) g/dL RDW (11.5-14.5) % Plt Count (130-400) K/uL MPV (7.2-11.7) fl Neut % (Auto) (50.0-75.0) % Lymph % (Auto) (20.0-40.0) % [place] % (Auto) (0.0-10.0) % Eos % (Auto) (0.0-4.0) % Baso % (Auto) (0.0-2.0) % Neut # (1.8-7.0) K/uL Lymph # (1.0-4.3) K/uL [place] # (0.0-0.8) K/uL Eos # (0.0-0.7) K/uL Baso # (0.0-0.2) K/uL PT (9.8-13.1) Seconds INR (0.9-1.2) APTT (25.6-37.1) Seconds pCO2 (35-45) mm/Hg pO2 (80-100) mm/Hg HCO3 (21-28) mmol/L ABG pH (7.35-7.45) ABG Total CO2 (22-28) mmol/L ABG O2 Saturation (95-98) % ABG O2 Content (15-23) ML/dL ABG Base Excess (-2.0-3.0) mmol/L ABG Hemoglobin (11.7-17.4) g/dL ABG Carboxyhemoglobin (0.5-1.5) % POC ABG HHb (Measured) (0.0-5.0) % ABG Methemoglobin (0.0-3.0) % ABG O2 Capacity (16-24) mL/dL Andry Test A-a O2 Difference mm/Hg Hgb O2 Saturation (95.0-98.0) % Liter Flow Vent Mode Mechanical Rate FiO2 % Tidal Volume PEEP Crit Value Called To Crit Value Called By Crit Value Read Back Blood Gas Notified Time Sodium (132-148) mmol/l Potassium (3.6-5.0) MMOL/L Chloride (98-107) mmol/L Carbon Dioxide (22-30) mmol/L Anion Gap (10-20) BUN (9-20) mg/dl Creatinine (0.8-1.5) mg/dl Est GFR ( Amer) Est GFR (Non-Af Amer) POC Glucose (mg/dL) (65-110) mg/dL Random Glucose (75-110) mg/dL Calcium (8.4-10.2) mg/dL Total Bilirubin (0.2-1.3) mg/dl AST (17-59) U/L ALT (21-72) U/L Alkaline Phosphatase (38-126) U/L C-Reactive Prot, Quant (<8.0) mg/L Total Protein (6.3-8.2) G/DL Albumin (3.5-5.0) g/dL Globulin (2.2-3.9) gm/dL Albumin/Globulin Ratio (1.0-2.1) Procalcitonin (0.19-0.49) NG/ML Free T4 (0.78-2.19) ng/dL Thyroxine (T4) (5.5-11.0) ug/dl TSH 3rd Generation (0.46-4.68) mIU/ML Prolactin 58.3 H (3.7-17.9) ng/mL Thyroglobulin Antibody <1 (< OR = 1) IU/mL Beta-(1,3)-D-Glucan 45 pg/mL B-(1,3)-D-Glucan Intrp Negative Blood Type Antibody Screen Crossmatch BBK History Checked Laboratory Results - last 24 hr 07/01/17 07/02/17 07/03/17 12:06 04:45 09:54 WBC RBC Hgb Hct MCV MCH MCHC RDW Plt Count MPV Neut % (Auto) Lymph % (Auto) [place] % (Auto) Eos % (Auto) Baso % (Auto) Neut # Lymph # [place] # Eos # Baso # PT INR APTT pCO2 pO2 HCO3 ABG pH ABG Total CO2 ABG O2 Saturation ABG O2 Content ABG Base Excess ABG Hemoglobin ABG Carboxyhemoglobin POC ABG HHb (Measured) ABG Methemoglobin ABG O2 Capacity Andry Test A-a O2 Difference Hgb O2 Saturation Liter Flow Vent Mode Mechanical Rate FiO2 Tidal Volume PEEP Crit Value Called To Crit Value Called By Crit Value Read Back Blood Gas Notified Time Sodium Potassium Chloride Carbon Dioxide Anion Gap BUN Creatinine Est GFR ( Amer) Est GFR (Non-Af Amer) POC Glucose (mg/dL) Random Glucose Calcium Total Bilirubin AST ALT Alkaline Phosphatase C-Reactive Prot, Quant Total Protein Albumin Globulin Albumin/Globulin Ratio Procalcitonin Free T4 Thyroxine (T4) TSH 3rd Generation Prolactin 58.3 H Thyroglobulin Antibody <1 Beta-(1,3)-D-Glucan 45 B-(1,3)-D-Glucan Intrp Negative Blood Type Antibody Screen Crossmatch BBK History Checked 07/03/17 07/03/17 07/03/17 09:54 10:10 10:10 WBC RBC Hgb Hct MCV MCH MCHC RDW Plt Count MPV Neut % (Auto) Lymph % (Auto) [place] % (Auto) Eos % (Auto) Baso % (Auto) Neut # Lymph # [place] # Eos # Baso # PT INR APTT pCO2 pO2 HCO3 ABG pH ABG Total CO2 ABG O2 Saturation ABG O2 Content ABG Base Excess ABG Hemoglobin ABG Carboxyhemoglobin POC ABG HHb (Measured) ABG Methemoglobin ABG O2 Capacity Andry Test A-a O2 Difference Hgb O2 Saturation Liter Flow Vent Mode Mechanical Rate FiO2 Tidal Volume PEEP Crit Value Called To Crit Value Called By Crit Value Read Back Blood Gas Notified Time Sodium Potassium Chloride Carbon Dioxide Anion Gap BUN Creatinine Est GFR ( Amer) Est GFR (Non-Af Amer) POC Glucose (mg/dL) Random Glucose Calcium Total Bilirubin AST ALT Alkaline Phosphatase C-Reactive Prot, Quant 136.6 H Total Protein Albumin Globulin Albumin/Globulin Ratio Procalcitonin 7.13 H Free T4 Thyroxine (T4) TSH 3rd Generation Prolactin Thyroglobulin Antibody Beta-(1,3)-D-Glucan B-(1,3)-D-Glucan Intrp Blood Type A NEGATIVE Antibody Screen Negative Crossmatch See Detail BBK History Checked Patient has bt 07/03/17 07/03/1718 11:31 16:56 22:27 WBC RBC Hgb Hct MCV MCH MCHC RDW Plt Count MPV Neut % (Auto) Lymph % (Auto) [place] % (Auto) Eos % (Auto) Baso % (Auto) Neut # Lymph # [place] # Eos # Baso # PT INR APTT pCO2 pO2 HCO3 ABG pH ABG Total CO2 ABG O2 Saturation ABG O2 Content ABG Base Excess ABG Hemoglobin ABG Carboxyhemoglobin POC ABG HHb (Measured) ABG Methemoglobin ABG O2 Capacity Andry Test A-a O2 Difference Hgb O2 Saturation Liter Flow Vent Mode Mechanical Rate FiO2 Tidal Volume PEEP Crit Value Called To Crit Value Called By Crit Value Read Back Blood Gas Notified Time Sodium Potassium Chloride Carbon Dioxide Anion Gap BUN Creatinine Est GFR ( Amer) Est GFR (Non-Af Amer) POC Glucose (mg/dL) 122 H 151 H 141 H Random Glucose Calcium Total Bilirubin AST ALT Alkaline Phosphatase C-Reactive Prot, Quant Total Protein Albumin Globulin Albumin/Globulin Ratio Procalcitonin Free T4 Thyroxine (T4) TSH 3rd Generation Prolactin Thyroglobulin Antibody Beta-(1,3)-D-Glucan B-(1,3)-D-Glucan Intrp Blood Type Antibody Screen Crossmatch BBK History Checked 07/04/17 07/04/17 07/04/17 04:18 04:40 04:40 WBC 9.3 RBC 2.66 L Hgb 8.2 L Hct 25.5 L MCV 95.8 H D MCH 30.7 MCHC 32.1 L RDW 17.1 H Plt Count 83 L MPV 10.8 Neut % (Auto) 80.5 H Lymph % (Auto) 12.9 L [place] % (Auto) 4.5 Eos % (Auto) 0.9 Baso % (Auto) 1.2 Neut # 7.5 H Lymph # 1.2 [place] # 0.4 Eos # 0.1 Baso # 0.1 PT 12.9 INR 1.2 APTT 35.9 pCO2 pO2 HCO3 ABG pH ABG Total CO2 ABG O2 Saturation ABG O2 Content ABG Base Excess ABG Hemoglobin ABG Carboxyhemoglobin POC ABG HHb (Measured) ABG Methemoglobin ABG O2 Capacity Andry Test A-a O2 Difference Hgb O2 Saturation Liter Flow Vent Mode Mechanical Rate FiO2 Tidal Volume PEEP Crit Value Called To Crit Value Called By Crit Value Read Back Blood Gas Notified Time Sodium Potassium Chloride Carbon Dioxide Anion Gap BUN Creatinine Est GFR ( Amer) Est GFR (Non-Af Amer) POC Glucose (mg/dL) 106 Random Glucose Calcium Total Bilirubin AST ALT Alkaline Phosphatase C-Reactive Prot, Quant Total Protein Albumin Globulin Albumin/Globulin Ratio Procalcitonin Free T4 Thyroxine (T4) TSH 3rd Generation Prolactin Thyroglobulin Antibody Beta-(1,3)-D-Glucan B-(1,3)-D-Glucan Intrp Blood Type Antibody Screen Crossmatch BBK History Checked 07/04/17 07/04/17 07/04/17 04:40 04:40 05:25 WBC RBC Hgb Hct MCV MCH MCHC RDW Plt Count MPV Neut % (Auto) Lymph % (Auto) [place] % (Auto) Eos % (Auto) Baso % (Auto) Neut # Lymph # [place] # Eos # Baso # PT INR APTT pCO2 48 H pO2 26 L* HCO3 24.0 ABG pH 7.34 L ABG Total CO2 27.4 ABG O2 Saturation 49.0 L ABG O2 Content 5.9 L ABG Base Excess -0.1 ABG Hemoglobin 8.8 L ABG Carboxyhemoglobin 0.9 POC ABG HHb (Measured) 49.6 H ABG Methemoglobin 1.8 ABG O2 Capacity 12.0 L Andry Test Yes A-a O2 Difference 342.0 Hgb O2 Saturation 47.7 L Liter Flow 20 Vent Mode Hfov Mechanical Rate 14 FiO2 60.0 Tidal Volume 400 PEEP 5 Crit Value Called To Dr castano Crit Value Called By [id number] Crit Value Read Back Y Blood Gas Notified Time 528 Sodium 148 Potassium 3.7 Chloride 114 H Carbon Dioxide 27 Anion Gap 11 BUN 81 H Creatinine 4.3 H Est GFR ( Amer) 17 Est GFR (Non-Af Amer) 14 POC Glucose (mg/dL) Random Glucose 112 H Calcium 8.6 Total Bilirubin 0.4 AST 22 ALT 53 Alkaline Phosphatase 211 H C-Reactive Prot, Quant Total Protein 5.9 L Albumin 2.8 L Globulin 3.1 Albumin/Globulin Ratio 0.9 L Procalcitonin Free T4 0.70 L Thyroxine (T4) 5.58 TSH 3rd Generation 5.55 H Prolactin Thyroglobulin Antibody Beta-(1,3)-D-Glucan B-(1,3)-D-Glucan Intrp Blood Type Antibody Screen Crossmatch BBK History Checked Fingerstick Blood Sugar Results: 141 <Erivn Mata - Last Filed: 07/04/17 23:48> Assessment/Plan - Assessment and Plan (Free Text) Plan: Attestation: Patient seen and examined at the bedside with Resident Dr. Tita Magana; and I agree with her outline of plans and management documented above as discussed on AM rounds reflecting my review of all applicable clinical data, and participation in the care of the patient throughout the day in ICU; July 04, 2017.
[2017-07-04 11:23] LABS: ABG ALLEN TEST YES; ARTERIAL BLOOD GAS HCO3 25.8 mmol/L (21-28); ARTERIAL BLOOD GAS HEMOGLOBIN 7.5 g/dL (11.7-17.4); ARTERIAL BLOOD GAS O2 CONTENT 11.1 ML/dL (15-23); ARTERIAL BLOOD GAS O2 SAT 100.9 % (95-98); ARTERIAL BLOOD GAS PCO2 34 mm/Hg (35-45); ARTERIAL BLOOD GAS PH 7.47 (7.35-7.45); ARTERIAL BLOOD GAS PO2 261 mm/Hg (80-100); ARTERIAL BLOOD GAS TCO2 25.7 mmol/L (22-28)
[2017-07-04] MEDS: Insulin Lispro (humaLOG) 100 Units/ml Inj SC SCH ×3 (12:21→21:31)
[2017-07-04 12:33] LABS: PROLACTIN 52.7 ng/mL (3.7-17.9)
--- NOTE | 2017-07-04 13:01 | CP.PCM.PN ---
Subjective - Date & Time of Evaluation Date of Evaluation: 07/04/17 Time of Evaluation: 07:00 - Subjective Subjective: afebrile intubated and sedated Objective - Vital Signs/Intake and Output Vital Signs (last 24 hours): Temp Pulse Resp BP Pulse Ox 98.3 F 73 29 H 158/63 H 100 07/04/17 11:55 07/04/17 11:55 07/04/17 11:55 07/04/17 11:55 07/04/17 11:55 Intake and Output: 07/04/17 07/04/17 06:59 18:59 Intake Total 850 500 Output Total 750 Balance 100 500 - Medications Medications: Current Medications Albuterol/Ipratropium (Duoneb 3 Mg/0.5 Mg (3 Ml) Ud) 3 ml INH RQID [facility] Last Admin: 07/04/17 12:18 Dose: 3 ml Bacitracin (Bacitracin Oint) 1 applic TOP TID [facility] Last Admin: 07/04/17 12:21 Dose: 1 applic Calcium Acetate (Phoslo) 2,001 mg PO WM [facility] Last Admin: 07/04/17 12:22 Dose: 2,001 mg Dextrose (Dextrose 50% Inj) 0 ml IV STAT PRN; Protocol PRN Reason: Hypoglycemia Protocol Dextrose (Glutose 15) 0 gm PO ONCE PRN; Protocol PRN Reason: Hypoglycemia Protocol Enoxaparin Sodium (Lovenox) 30 mg SC DAILY [facility] PRN Reason: Protocol Last Admin: 07/04/17 09:00 Dose: 30 mg Epoetin Roel (Procrit) 10,000 unit SC MWF [facility] Last Admin: 07/04/17 09:03 Dose: 10,000 unit Ergocalciferol (Drisdol 50,000 Intl Units Cap) 1 cap PO Q7D [facility] Last Admin: 07/01/17 09:01 Dose: 1 cap Glucagon (Glucagen Diagnostic Kit) 0 mg IM STAT PRN; Protocol PRN Reason: Hypoglycemia Protocol Hydralazine HCl (Apresoline) 25 mg PO Q8 [facility] Last Admin: 07/04/17 08:56 Dose: 25 mg Linezolid (Zyvox 600mg/300ml D5w) 600 mg in 300 mls @ 300 mls/hr IVPB Q12 [facility] PRN Reason: Protocol Last Admin: 07/04/17 09:05 Dose: 300 mls/hr Cefepime HCl 1 gm/ Sodium (Chloride) 100 mls @ 100 mls/hr IVPB DAILY [facility] PRN Reason: Protocol Last Admin: 07/04/17 09:00 Dose: 100 mls/hr Micafungin Sodium 100 mg/ (Sodium Chloride) 100 mls @ 100 mls/hr IVPB DAILY [facility] PRN Reason: Protocol Last Admin: 07/03/17 13:15 Dose: 100 mls/hr Propofol (Diprivan) 1,000 mg in 100 mls @ 2.082 mls/hr IV .Q24H [facility]; 5 MCG/KG/ MIN PRN Reason: Protocol Stop: 07/05/17 05:57 Last Admin: 07/04/17 09:38 Dose: 5 mcg/kg/min, 2.082 mls/hr Levetiracetam 500 mg/ Sodium (Chloride) 105 mls @ 210 mls/hr IVPB Q12 [facility] Insulin Human Lispro (Humalog) 0 units SC ACHS [facility] PRN Reason: Protocol Last Admin: 07/04/17 12:21 Dose: Not Given Metoprolol Tartrate (Lopressor) 5 mg IVP Q6 [facility] Last Admin: 07/04/17 08:59 Dose: 5 mg Pantoprazole Sodium (Protonix Inj) 40 mg IVP DAILY [facility] Last Admin: 07/04/17 09:04 Dose: 40 mg Sodium Bicarbonate (Sodium Bicarbonate Tab) 1,300 mg PO Q8 [facility] Last Admin: 07/02/17 16:23 Dose: 1,300 mg Thiamine HCl (Vitamin B1 Tab) 100 mg PO BID [facility] Last Admin: 07/04/17 09:05 Dose: 100 mg - Labs Labs: 07/04/17 04:40 07/04/17 04:40 PT 12.9 Seconds (9.8-13.1) 07/04/17 04:40 INR 1.2 (0.9-1.2) 07/04/17 04:40 APTT 35.9 Seconds (25.6-37.1) 07/04/17 04:40 - Constitutional Appears: Non-toxic, Cachectic, Chronically Ill - Head Exam Head Exam: NORMOCEPHALIC - Eye Exam Eye Exam: PERRL. absent: Scleral icterus - ENT Exam ENT Exam: Mucous Membranes Dry - Neck Exam Neck Exam: absent: Lymphadenopathy - Respiratory Exam Respiratory Exam: Decreased Breath Sounds - Cardiovascular Exam Cardiovascular Exam: REGULAR RHYTHM - GI/Abdominal Exam GI & Abdominal Exam: Distended, Soft - Rectal Exam Rectal Exam: Deferred - Exam Exam: NORMAL INSPECTION - Extremities Exam Extremities Exam: absent: Pedal Edema - Back Exam Back Exam: absent: CVA tenderness (L), CVA tenderness (R) - Neurological Exam Neurological Exam: Altered Assessment and Plan (1) Acute renal failure Status: Acute (2) Altered mental status Status: Acute (3) CHF (congestive heart failure) Status: Acute (4) DM2 (diabetes mellitus, type 2) Status: Acute (5) HCAP (healthcare-associated pneumonia) Status: Acute (6) Pleural effusion Status: Acute (7) SIRS (systemic inflammatory response syndrome) Status: Acute (8) Sepsis Status: Acute (9) Acute kidney injury superimposed on chronic kidney disease Status: Acute (10) Alcohol abuse Status: Acute (11) Anasarca Status: Acute (12) Anemia of renal disease Status: Acute (13) Bilateral lower extremity edema Status: Acute - Assessment and Plan (Free Text) Assessment: bilat pneumonia/ sepsis/ resp failure all cultures neg thus far cont zyvox/cefepime / mycamine poor prognosis
--- NOTE | 2017-07-04 13:51 | CP.PCM.PN ---
Subjective - Date & Time of Evaluation Date of Evaluation: 07/04/17 Time of Evaluation: 13:51 - Subjective Subjective: EVENTS OF THIS AM NOTED PT WAS RE-INTUBATED AND PLACED ON THE VENT WILL CONTINUE PRESENT RX PROGNOSIS IS POOR Objective - Vital Signs/Intake and Output Vital Signs (last 24 hours): Temp Pulse Resp BP Pulse Ox 98.3 F 73 29 H 158/63 H 100 07/04/17 11:55 07/04/17 11:55 07/04/17 11:55 07/04/17 11:55 07/04/17 11:55 Intake and Output: 07/04/17 07/04/17 06:59 18:59 Intake Total 850 500 Output Total 750 Balance 100 500 - Medications Medications: Current Medications Albuterol/Ipratropium (Duoneb 3 Mg/0.5 Mg (3 Ml) Ud) 3 ml INH RQID [facility] Last Admin: 07/04/17 12:18 Dose: 3 ml Bacitracin (Bacitracin Oint) 1 applic TOP TID [facility] Last Admin: 07/04/17 12:21 Dose: 1 applic Calcium Acetate (Phoslo) 2,001 mg PO WM [facility] Last Admin: 07/04/17 12:22 Dose: 2,001 mg Dextrose (Dextrose 50% Inj) 0 ml IV STAT PRN; Protocol PRN Reason: Hypoglycemia Protocol Dextrose (Glutose 15) 0 gm PO ONCE PRN; Protocol PRN Reason: Hypoglycemia Protocol Enoxaparin Sodium (Lovenox) 30 mg SC DAILY [facility] PRN Reason: Protocol Last Admin: 07/04/17 09:00 Dose: 30 mg Epoetin Roel (Procrit) 10,000 unit SC MWF [facility] Last Admin: 07/04/17 09:03 Dose: 10,000 unit Ergocalciferol (Drisdol 50,000 Intl Units Cap) 1 cap PO Q7D [facility] Last Admin: 07/01/17 09:01 Dose: 1 cap Glucagon (Glucagen Diagnostic Kit) 0 mg IM STAT PRN; Protocol PRN Reason: Hypoglycemia Protocol Hydralazine HCl (Apresoline) 25 mg PO Q8 [facility] Last Admin: 07/04/17 08:56 Dose: 25 mg Linezolid (Zyvox 600mg/300ml D5w) 600 mg in 300 mls @ 300 mls/hr IVPB Q12 [facility] PRN Reason: Protocol Last Admin: 07/04/17 09:05 Dose: 300 mls/hr Cefepime HCl 1 gm/ Sodium (Chloride) 100 mls @ 100 mls/hr IVPB DAILY [facility] PRN Reason: Protocol Last Admin: 07/04/17 09:00 Dose: 100 mls/hr Micafungin Sodium 100 mg/ (Sodium Chloride) 100 mls @ 100 mls/hr IVPB DAILY [facility] PRN Reason: Protocol Last Admin: 07/03/17 13:15 Dose: 100 mls/hr Propofol (Diprivan) 1,000 mg in 100 mls @ 2.082 mls/hr IV .Q24H [facility]; 5 MCG/KG/ MIN PRN Reason: Protocol Stop: 07/05/17 05:57 Last Admin: 07/04/17 09:38 Dose: 5 mcg/kg/min, 2.082 mls/hr Levetiracetam 500 mg/ Sodium (Chloride) 105 mls @ 210 mls/hr IVPB Q12 [facility] Insulin Human Lispro (Humalog) 0 units SC ACHS [facility] PRN Reason: Protocol Last Admin: 07/04/17 12:21 Dose: Not Given Metoprolol Tartrate (Lopressor) 5 mg IVP Q6 [facility] Last Admin: 07/04/17 08:59 Dose: 5 mg Pantoprazole Sodium (Protonix Inj) 40 mg IVP DAILY [facility] Last Admin: 07/04/17 09:04 Dose: 40 mg Sodium Bicarbonate (Sodium Bicarbonate Tab) 1,300 mg PO Q8 [facility] Last Admin: 07/02/17 16:23 Dose: 1,300 mg Thiamine HCl (Vitamin B1 Tab) 100 mg PO BID [facility] Last Admin: 07/04/17 09:05 Dose: 100 mg - Labs Labs: 07/04/17 04:40 07/04/17 04:40 PT 12.9 Seconds (9.8-13.1) 07/04/17 04:40 INR 1.2 (0.9-1.2) 07/04/17 04:40 APTT 35.9 Seconds (25.6-37.1) 07/04/17 04:40
[2017-07-04] MEDS: Micafungin 100 MG in Sodium Chloride 0.9% 100 ML IVPB SCH (15:55)
--- NOTE | 2017-07-04 18:52 | MRI ---
PROCEDURE: MRI of the brain dated 07/04/2017 HISTORY: AMS.Respiratory distress. . Hypothermia. COMPARISON: Comparison made with prior CT scan brain 06/24/2017 TECHNIQUE: Multiplanar, multisequence MR images of the brain were obtained without intravenous contrast enhancement. FINDINGS: HEMORRHAGE: No acute parenchymal, subarachnoid or extra-axial hemorrhage. No evidence of hemosiderin deposition seen on gradient echo weighted sequence DWI: No evidence of an acute or early subacute infarction seen on diffusion imaging. . BRAIN PARENCHYMA: Moderate diffuse/confluent chronic white matter ischemic changes seen extending peripherally into the deep and subcortical white matter both cerebral hemispheres. Multiple more discrete chronic appearing lacunar type infarcts scattered about the deep and subcortical white matter as well. Diffuse chronic ischemic changes within the brainstem also felt to be present however the possibility of sequela of osmotic myelinolysis cannot be completely excluded. Clinical correlation is therefore recommended. There are a few scattered tiny chronic basal nuclei lacunar type infarcts difficult to distinguish from dilated perivascular spaces. Moderate somewhat more central volume loss evidenced by slight disproportion enlargement of the ventricles as compared the sulci. Volume loss. VENTRICLES: No obstructive hydrocephalus CRANIUM: No acute calvarial abnormalities. . ORBITS: Orbits and contents grossly unremarkable. PARANASAL SINUSES/MASTOIDS: The relatively large amount of secretion present within the nasopharynx extending anteriorly into the posterior margins of the nasal cavities. In addition, there is opacification of both mastoid air complexes. Findings may be due to longstanding intubation with collected secretions. . Clinical correlation recommended. Minimal mucosal thickening both maxillary antra and ethmoid air complex. The VASCULAR SYSTEM: Visualized major vascular flow voids at skull base are patent. . OTHER FINDINGS: None. IMPRESSION: No acute intracranial hemorrhage or infarct seen. Moderate diffuse/ confluent chronic white matter ischemic changes with scattered more discrete chronic appearing lacunar type infarcts scattered about the deep and subcortical white matter of both cerebral hemispheres. Additionally, there are mild diffuse prolonged T2 signal changes within the dali that may represent chronic ischemia as well however the possibility of sequela of osmotic myelinolysis not excluded. . Suspect few scattered chronic bilateral basal nuclei lacunar type infarcts. Moderate slightly more central volume loss as detailed above. Relatively large amount secretions seen within the nasopharynx and posterior nasal cavities with opacification both mastoid air complexes. These changes are likely due to longstanding intubation however clinical correlation recommended.
--- NOTE | 2017-07-04 19:58 | CP.PCM.CON ---
History of Present Illness - History of Present Illness History of Present Illness: Mr. Durand is a 66-year-old man who is currently in the ICU after a long and complicated hospital course with multiple medical co-morbidities, and multi- organ failure as well as pneumonia and sepsis. This morning he became bradycardic into the 30's and had respiratory failure, required intubation and sedation. There were no witnessed abnormal movements or shaking. He was stabilized and is currently on a low dose of propofol, but following commands and moving all extremities. Review of Systems - Review of Systems Systems not reviewed;Unavailable: Altered Mental Status, Intubated All systems: reviewed and no additional remarkable complaints except Past Patient History - Infectious Disease Hx of Infectious Diseases: None - Tetanus Immunizations Tetanus Immunization: Unknown - Past Medical History & Family History Past Medical History?: Yes - Past Social History Alcohol: None Drugs: Denies - CARDIAC Hx Cardiac Disorders: Yes Hx Congestive Heart Failure: Yes Hx Hypercholesterolemia: No Hx Hypertension: Yes - PULMONARY Hx Chronic Obstructive Pulmonary Disease (COPD): No - NEUROLOGICAL HX Cerebrovascular Accident: No - HEENT Hx HEENT Problems: No - RENAL Hx Renal Failure: Yes - ENDOCRINE/METABOLIC Hx Diabetes Mellitus Type 1: No Hx Diabetes Mellitus Type 2: Yes Hx Hypothyroidism: No - HEMATOLOGICAL/ONCOLOGICAL Hx Anemia: Yes Hx Human Immunodeficiency Virus (HIV): No Hx Sickle Cell Disease: No - INTEGUMENTARY Hx Dermatological Problems: No - MUSCULOSKELETAL/RHEUMATOLOGICAL Hx Arthritis: No Hx Rheumatoid Arthritis: No - GASTROINTESTINAL Hx Crohn's Disease: No Hx Diverticulitis: No Hx Gall Bladder Disease: No Hx Gastritis: No Hx Pancreatitis: No - GENITOURINARY/GYNECOLOGICAL Hx Genitourinary Disorders: No - PSYCHIATRIC Hx Anxiety: Yes Hx Bipolar Disorder: Yes Hx Depression: Yes Hx Paranoia: No Hx Post Traumatic Stress Disorder: No Hx Schizophrenia: No - SURGICAL HISTORY Hx Surgeries: No - ANESTHESIA Hx Anesthesia: Yes Hx Anesthesia Reactions: No Hx Malignant Hyperthermia: No Meds Allergies/Adverse Reactions: Allergies Allergy/AdvReac Type Severity Reaction Status Date / Time No Known Allergies Allergy Verified 05/21/17 16:02 - Medications Medications: Current Medications Albuterol/Ipratropium (Duoneb 3 Mg/0.5 Mg (3 Ml) Ud) 3 ml INH RQID [facility] Last Admin: 07/04/17 19:06 Dose: 3 ml Bacitracin (Bacitracin Oint) 1 applic TOP TID [facility] Last Admin: 07/04/17 16:03 Dose: 1 applic Calcium Acetate (Phoslo) 2,001 mg PO WM [facility] Last Admin: 07/04/17 18:37 Dose: 2,001 mg Dextrose (Dextrose 50% Inj) 0 ml IV STAT PRN; Protocol PRN Reason: Hypoglycemia Protocol Dextrose (Glutose 15) 0 gm PO ONCE PRN; Protocol PRN Reason: Hypoglycemia Protocol Enoxaparin Sodium (Lovenox) 30 mg SC DAILY [facility] PRN Reason: Protocol Last Admin: 07/04/17 09:00 Dose: 30 mg Epoetin Roel (Procrit) 10,000 unit SC MWF [facility] Last Admin: 07/04/17 09:03 Dose: 10,000 unit Ergocalciferol (Drisdol 50,000 Intl Units Cap) 1 cap PO Q7D [facility] Last Admin: 07/01/17 09:01 Dose: 1 cap Glucagon (Glucagen Diagnostic Kit) 0 mg IM STAT PRN; Protocol PRN Reason: Hypoglycemia Protocol Hydralazine HCl (Apresoline) 25 mg PO Q8 [facility] Last Admin: 07/04/17 16:02 Dose: 25 mg Linezolid (Zyvox 600mg/300ml D5w) 600 mg in 300 mls @ 300 mls/hr IVPB Q12 [facility] PRN Reason: Protocol Last Admin: 07/04/17 09:05 Dose: 300 mls/hr Cefepime HCl 1 gm/ Sodium (Chloride) 100 mls @ 100 mls/hr IVPB DAILY [facility] PRN Reason: Protocol Last Admin: 07/04/17 09:00 Dose: 100 mls/hr Micafungin Sodium 100 mg/ (Sodium Chloride) 100 mls @ 100 mls/hr IVPB DAILY [facility] PRN Reason: Protocol Last Admin: 07/04/17 15:55 Dose: 100 mls/hr Propofol (Diprivan) 1,000 mg in 100 mls @ 2.082 mls/hr IV .Q24H [facility]; 5 MCG/KG/ MIN PRN Reason: Protocol Stop: 07/05/17 05:57 Last Admin: 07/04/17 09:38 Dose: 5 mcg/kg/min, 2.082 mls/hr Levetiracetam 500 mg/ Sodium (Chloride) 105 mls @ 210 mls/hr IVPB Q12 [facility] Insulin Human Lispro (Humalog) 0 units SC ACHS [facility] PRN Reason: Protocol Last Admin: 07/04/17 18:36 Dose: Not Given Metoprolol Tartrate (Lopressor) 5 mg IVP Q6 [facility] Last Admin: 07/04/17 16:03 Dose: 5 mg Pantoprazole Sodium (Protonix Inj) 40 mg IVP DAILY [facility] Last Admin: 07/04/17 09:04 Dose: 40 mg Sodium Bicarbonate (Sodium Bicarbonate Tab) 1,300 mg PO Q8 [facility] Last Admin: 07/02/17 16:23 Dose: 1,300 mg Thiamine HCl (Vitamin B1 Tab) 100 mg PO BID [facility] Last Admin: 07/04/17 16:05 Dose: 100 mg Physical Exam - Neurological Exam Additional comments: Intubated, on mild sedations, brainstem reflexes intact, breathing over the ventilator with good volumes, follows commands, moves all extremities, reflexes are brisk with upgoing plantar responses bilaterally. Results - Vital Signs Recent Vital Signs: Last Vital Signs Temp 99.3 F 07/04/17 16:00 Pulse 68 07/04/17 18:00 Resp 14 07/04/17 18:00 BP 156/61 H 07/04/17 18:00 Pulse Ox 100 07/04/17 18:00 - Labs Result Diagrams: 07/04/17 04:40 07/04/17 04:40 Labs: Laboratory Results - last 24 hr 07/01/17 07/03/17 07/03/17 12:06 09:54 10:10 WBC RBC Hgb Hct MCV MCH MCHC RDW Plt Count MPV Neut % (Auto) Lymph % (Auto) [place] % (Auto) Eos % (Auto) Baso % (Auto) Neut # Lymph # [place] # Eos # Baso # PT INR APTT pCO2 pO2 HCO3 ABG pH ABG Total CO2 ABG O2 Saturation ABG O2 Content ABG Base Excess ABG Hemoglobin ABG Carboxyhemoglobin POC ABG HHb (Measured) ABG Methemoglobin ABG O2 Capacity Andry Test A-a O2 Difference Hgb O2 Saturation Liter Flow Vent Mode Mechanical Rate FiO2 Tidal Volume PEEP Crit Value Called To Crit Value Called By Crit Value Read Back Blood Gas Notified Time Sodium Potassium Chloride Carbon Dioxide Anion Gap BUN Creatinine Est GFR ( Amer) Est GFR (Non-Af Amer) POC Glucose (mg/dL) Random Glucose Calcium Total Bilirubin AST ALT Alkaline Phosphatase C-Reactive Prot, Quant 136.6 H Total Protein Albumin Globulin Albumin/Globulin Ratio Procalcitonin 7.13 H Free T4 Thyroxine (T4) TSH 3rd Generation Prolactin Beta-(1,3)-D-Glucan 45 B-(1,3)-D-Glucan Intrp Negative 07/03/17 07/04/17 07/04/17 22:27 04:18 04:40 WBC 9.3 RBC 2.66 L Hgb 8.2 L Hct 25.5 L MCV 95.8 H D MCH 30.7 MCHC 32.1 L RDW 17.1 H Plt Count 83 L MPV 10.8 Neut % (Auto) 80.5 H Lymph % (Auto) 12.9 L [place] % (Auto) 4.5 Eos % (Auto) 0.9 Baso % (Auto) 1.2 Neut # 7.5 H Lymph # 1.2 [place] # 0.4 Eos # 0.1 Baso # 0.1 PT INR APTT pCO2 pO2 HCO3 ABG pH ABG Total CO2 ABG O2 Saturation ABG O2 Content ABG Base Excess ABG Hemoglobin ABG Carboxyhemoglobin POC ABG HHb (Measured) ABG Methemoglobin ABG O2 Capacity Andry Test A-a O2 Difference Hgb O2 Saturation Liter Flow Vent Mode Mechanical Rate FiO2 Tidal Volume PEEP Crit Value Called To Crit Value Called By Crit Value Read Back Blood Gas Notified Time Sodium Potassium Chloride Carbon Dioxide Anion Gap BUN Creatinine Est GFR ( Amer) Est GFR (Non-Af Amer) POC Glucose (mg/dL) 141 H 106 Random Glucose Calcium Total Bilirubin AST ALT Alkaline Phosphatase C-Reactive Prot, Quant Total Protein Albumin Globulin Albumin/Globulin Ratio Procalcitonin Free T4 Thyroxine (T4) TSH 3rd Generation Prolactin Beta-(1,3)-D-Glucan B-(1,3)-D-Glucan Intrp 07/04/17 07/04/17 07/04/17 04:40 04:40 04:40 WBC RBC Hgb Hct MCV MCH MCHC RDW Plt Count MPV Neut % (Auto) Lymph % (Auto) [place] % (Auto) Eos % (Auto) Baso % (Auto) Neut # Lymph # [place] # Eos # Baso # PT 12.9 INR 1.2 APTT 35.9 pCO2 pO2 HCO3 ABG pH ABG Total CO2 ABG O2 Saturation ABG O2 Content ABG Base Excess ABG Hemoglobin ABG Carboxyhemoglobin POC ABG HHb (Measured) ABG Methemoglobin ABG O2 Capacity Andry Test A-a O2 Difference Hgb O2 Saturation Liter Flow Vent Mode Mechanical Rate FiO2 Tidal Volume PEEP Crit Value Called To Crit Value Called By Crit Value Read Back Blood Gas Notified Time Sodium 148 Potassium 3.7 Chloride 114 H Carbon Dioxide 27 Anion Gap 11 BUN 81 H Creatinine 4.3 H Est GFR ( Amer) 17 Est GFR (Non-Af Amer) 14 POC Glucose (mg/dL) Random Glucose 112 H Calcium 8.6 Total Bilirubin 0.4 AST 22 ALT 53 Alkaline Phosphatase 211 H C-Reactive Prot, Quant Total Protein 5.9 L Albumin 2.8 L Globulin 3.1 Albumin/Globulin Ratio 0.9 L Procalcitonin Free T4 0.70 L Thyroxine (T4) 5.58 TSH 3rd Generation 5.55 H Prolactin 52.7 H Beta-(1,3)-D-Glucan B-(1,3)-D-Glucan Intrp 07/04/17 07/04/17 07/04/17 05:25 09:42 10:51 WBC RBC Hgb Hct MCV MCH MCHC RDW Plt Count MPV Neut % (Auto) Lymph % (Auto) [place] % (Auto) Eos % (Auto) Baso % (Auto) Neut # Lymph # [place] # Eos # Baso # PT INR APTT pCO2 48 H 34 L pO2 26 L* 261 H HCO3 24.0 25.8 ABG pH 7.34 L 7.47 H ABG Total CO2 27.4 25.7 ABG O2 Saturation 49.0 L 100.9 H ABG O2 Content 5.9 L 11.1 L ABG Base Excess -0.1 1.1 ABG Hemoglobin 8.8 L 7.5 L ABG Carboxyhemoglobin 0.9 1.5 POC ABG HHb (Measured) 49.6 H -0.9 L ABG Methemoglobin 1.8 1.0 ABG O2 Capacity 12.0 L 11.0 L Andry Test Yes Yes A-a O2 Difference 342.0 53.0 Hgb O2 Saturation 47.7 L 98.4 H Liter Flow 20 Vent Mode Hfov Ac prvc Mechanical Rate 14 14 FiO2 60.0 50.0 Tidal Volume 400 400 PEEP 5 5 Crit Value Called To Dr castano Crit Value Called By [id number] Crit Value Read Back Y Blood Gas Notified Time 528 Sodium Potassium Chloride Carbon Dioxide Anion Gap BUN Creatinine Est GFR ( Amer) Est GFR (Non-Af Amer) POC Glucose (mg/dL) 114 H Random Glucose Calcium Total Bilirubin AST ALT Alkaline Phosphatase C-Reactive Prot, Quant Total Protein Albumin Globulin Albumin/Globulin Ratio Procalcitonin Free T4 Thyroxine (T4) TSH 3rd Generation Prolactin Beta-(1,3)-D-Glucan B-(1,3)-D-Glucan Intrp 07/04/17 18:10 WBC RBC Hgb Hct MCV MCH MCHC RDW Plt Count MPV Neut % (Auto) Lymph % (Auto) [place] % (Auto) Eos % (Auto) Baso % (Auto) Neut # Lymph # [place] # Eos # Baso # PT INR APTT pCO2 pO2 HCO3 ABG pH ABG Total CO2 ABG O2 Saturation ABG O2 Content ABG Base Excess ABG Hemoglobin ABG Carboxyhemoglobin POC ABG HHb (Measured) ABG Methemoglobin ABG O2 Capacity Andry Test A-a O2 Difference Hgb O2 Saturation Liter Flow Vent Mode Mechanical Rate FiO2 Tidal Volume PEEP Crit Value Called To Crit Value Called By Crit Value Read Back Blood Gas Notified Time Sodium Potassium Chloride Carbon Dioxide Anion Gap BUN Creatinine Est GFR ( Amer) Est GFR (Non-Af Amer) POC Glucose (mg/dL) 124 H Random Glucose Calcium Total Bilirubin AST ALT Alkaline Phosphatase C-Reactive Prot, Quant Total Protein Albumin Globulin Albumin/Globulin Ratio Procalcitonin Free T4 Thyroxine (T4) TSH 3rd Generation Prolactin Beta-(1,3)-D-Glucan B-(1,3)-D-Glucan Intrp - Imaging and Cardiology MRI - head Status: Image reviewed by me, Report reviewed by me (Diffuse chronic white matter disease and chronic infarcts. ) Assessment & Plan (1) Altered mental status Assessment and Plan: Likely due to toxic-metabolic encephalopathy and multi-organ failure. Continue conservative management. No further recommendations at this time. Thank you Status: Acute Priority: High
[2017-07-04] MEDS: levETIRAcetam 500 MG in Sodium Chloride 0.9% 100 ML IVPB SCH (20:08)
--- NOTE | 2017-07-04 21:33 | CP.PCM.PN ---
Subjective - Date & Time of Evaluation Date of Evaluation: 07/04/17 Time of Evaluation: 17:00 - Subjective Subjective: Patient became bradycardic and unreponsive early this morning, given atropine and re-intubated; subsequently placed on dopamine; Objective - Vital Signs/Intake and Output Vital Signs (last 24 hours): Temp Pulse Resp BP Pulse Ox 98.4 F 73 14 151/58 H 100 07/04/17 20:00 07/04/17 20:00 07/04/17 20:00 07/04/17 20:00 07/04/17 20:00 Intake and Output: 07/04/17 07/05/17 18:59 06:59 Intake Total 636 612 Output Total 500 Balance 136 612 - Medications Medications: Current Medications Albuterol/Ipratropium (Duoneb 3 Mg/0.5 Mg (3 Ml) Ud) 3 ml INH RQID [facility] Last Admin: 07/04/17 19:06 Dose: 3 ml Bacitracin (Bacitracin Oint) 1 applic TOP TID [facility] Last Admin: 07/04/17 16:03 Dose: 1 applic Calcium Acetate (Phoslo) 2,001 mg PO WM [facility] Last Admin: 07/04/17 18:37 Dose: 2,001 mg Dextrose (Dextrose 50% Inj) 0 ml IV STAT PRN; Protocol PRN Reason: Hypoglycemia Protocol Dextrose (Glutose 15) 0 gm PO ONCE PRN; Protocol PRN Reason: Hypoglycemia Protocol Enoxaparin Sodium (Lovenox) 30 mg SC DAILY [facility] PRN Reason: Protocol Last Admin: 07/04/17 09:00 Dose: 30 mg Epoetin Roel (Procrit) 10,000 unit SC MWF [facility] Last Admin: 07/04/17 09:03 Dose: 10,000 unit Ergocalciferol (Drisdol 50,000 Intl Units Cap) 1 cap PO Q7D [facility] Last Admin: 07/01/17 09:01 Dose: 1 cap Glucagon (Glucagen Diagnostic Kit) 0 mg IM STAT PRN; Protocol PRN Reason: Hypoglycemia Protocol Hydralazine HCl (Apresoline) 25 mg PO Q8 [facility] Last Admin: 07/04/17 16:02 Dose: 25 mg Linezolid (Zyvox 600mg/300ml D5w) 600 mg in 300 mls @ 300 mls/hr IVPB Q12 [facility] PRN Reason: Protocol Last Admin: 07/04/17 20:05 Dose: 300 mls/hr Cefepime HCl 1 gm/ Sodium (Chloride) 100 mls @ 100 mls/hr IVPB DAILY [facility] PRN Reason: Protocol Last Admin: 07/04/17 09:00 Dose: 100 mls/hr Micafungin Sodium 100 mg/ (Sodium Chloride) 100 mls @ 100 mls/hr IVPB DAILY [facility] PRN Reason: Protocol Last Admin: 07/04/17 15:55 Dose: 100 mls/hr Propofol (Diprivan) 1,000 mg in 100 mls @ 2.082 mls/hr IV .Q24H [facility]; 5 MCG/KG/ MIN PRN Reason: Protocol Stop: 07/05/17 05:57 Last Admin: 07/04/17 09:38 Dose: 5 mcg/kg/min, 2.082 mls/hr Levetiracetam 500 mg/ Sodium (Chloride) 105 mls @ 210 mls/hr IVPB Q12 [facility] Last Admin: 07/04/17 20:08 Dose: 210 mls/hr Insulin Human Lispro (Humalog) 0 units SC ACHS [facility] PRN Reason: Protocol Last Admin: 07/04/17 21:31 Dose: Not Given Metoprolol Tartrate (Lopressor) 5 mg IVP Q6 [facility] Last Admin: 07/04/17 16:03 Dose: 5 mg Pantoprazole Sodium (Protonix Inj) 40 mg IVP DAILY [facility] Last Admin: 07/04/17 09:04 Dose: 40 mg Sodium Bicarbonate (Sodium Bicarbonate Tab) 1,300 mg PO Q8 [facility] Last Admin: 07/02/17 16:23 Dose: 1,300 mg Thiamine HCl (Vitamin B1 Tab) 100 mg PO BID [facility] Last Admin: 07/04/17 16:05 Dose: 100 mg - Labs Labs: 07/04/17 04:40 07/04/17 04:40 PT 12.9 Seconds (9.8-13.1) 07/04/17 04:40 INR 1.2 (0.9-1.2) 07/04/17 04:40 APTT 35.9 Seconds (25.6-37.1) 07/04/17 04:40 - Constitutional Appears: No Acute Distress, Chronically Ill - Eye Exam Eye Exam: Normal appearance. absent: Scleral icterus - ENT Exam ENT Exam: Mucous Membranes Moist - Respiratory Exam Respiratory Exam: absent: Respiratory Distress Additional comments: markedly decreased breath sounds on L base; - Cardiovascular Exam Cardiovascular Exam: RRR, +S1, +S2 - GI/Abdominal Exam GI & Abdominal Exam: Soft. absent: Distended, Tenderness - Extremities Exam Additional comments: edema in dependent areas (distal leg edema resolved); - Neurological Exam Neurological Exam: Alert, Awake Additional comments: following commands; - Psychiatric Exam Psychiatric exam: absent: Agitated - Skin Skin Exam: Cyanosis. absent: Warm Assessment and Plan (1) Acute renal failure Assessment & Plan: CHINTAN on CKD with multiple ATN insults; nevertheless, serum creatinine still remains stable lately; need to avoid intravascular volume depletion; will continue to hold diuretics; will ideally benefit from volume repletion though holding off due to concern for worsening pleural effusions Status: Acute (2) Pleural effusion Assessment & Plan: Now with increasing R sided effusion; has not benefitted from diuresis; agree with CCM team that thoracentesis with fluid analysis from R effusion should be done to further evaluate cause of recurrent effusions; Status: Chronic (3) Hypothermia Status: Acute (4) Altered mental status Status: Acute (5) SIRS (systemic inflammatory response syndrome) Status: Acute (6) Nephrotic syndrome Assessment & Plan: Contributing to overall morbidity and likely intravascular volume depletion despite elevated BP; will restart KEVIN blockade once renal function recovers; Status: Chronic (7) Anemia Assessment & Plan: Hgb well below goal despite being on EPO, will increase dose to 15,000 u three times per week; Status: Chronic (8) Chronic kidney disease, stage 3 (moderate) Status: Chronic (9) Hypertensive CKD (chronic kidney disease) Assessment & Plan: BP elevated; will restart amlodipine 10 mg daily; Status: Acute
[2017-07-05] MEDS: Propofol 10 mg/ml 1,000 MG/100 ML VIAL IV SCH (02:52)
[2017-07-05] MEDS: Metoprolol 1 mg/ml Inj IVP SCH ×4 (04:00→21:29)
[2017-07-05 04:25] LABS: ABG ALLEN TEST YES; ARTERIAL BLOOD GAS HCO3 25.8 mmol/L (21-28); ARTERIAL BLOOD GAS HEMOGLOBIN 7.7 g/dL (11.7-17.4); ARTERIAL BLOOD GAS O2 CONTENT 11.1 ML/dL (15-23); ARTERIAL BLOOD GAS O2 SAT 100.5 % (95-98); ARTERIAL BLOOD GAS PCO2 42 mm/Hg (35-45); ARTERIAL BLOOD GAS PO2 179 mm/Hg (80-100); ARTERIAL BLOOD GAS TCO2 27.3 mmol/L (22-28)
[2017-07-05] MEDS: Levothyroxine 50 MCG TAB PO SCH (05:32)
[2017-07-05 06:12] LABS: BASO # 0.1 K/uL (0.0-0.2); BASO % 0.9 % (0.0-2.0); EOS # 0.1 K/uL (0.0-0.7); EOS % 1.4 % (0.0-4.0); HEMOGLOBIN 7.3 g/dL (12.0-18.0); LYMPH # 1.2 K/uL (1.0-4.3); LYMPH % 13.8 % (20.0-40.0); MEAN CORPUSCULAR HEMOGLOBIN 31.5 pg (27.0-31.0); MEAN CORPUSCULAR HGB CONC 33.1 g/dL (33.0-37.0); MEAN PLATELET VOLUME 9.6 fl (7.2-11.7); MONO # 0.4 K/uL (0.0-0.8); MONO % 4.6 % (0.0-10.0); NEUT # 6.6 K/uL (1.8-7.0); NEUT % 79.3 % (50.0-75.0); NRBC % 0.2 % (0.0-0.0); RBC 2.31 Mil/uL (4.40-5.90); RED CELL DISTRIBUTION WIDTH 17.2 % (11.5-14.5); WHITE BLOOD COUNT 8.3 K/uL (4.8-10.8)
[2017-07-05 06:24] LABS: ALB/GLOB RATIO 0.9 (1.0-2.1); ALBUMIN 2.5 g/dL (3.5-5.0); CALCIUM 8.7 mg/dL (8.4-10.2)
[2017-07-05] MEDS: Insulin Lispro (humaLOG) 100 Units/ml Inj SC SCH ×4 (06:31→21:36)
[2017-07-05] MEDS ORDERED: Epoetin Alfa 4000 UNIT/ML Inj SC ONE (08:28)
[2017-07-05] MEDS: Albuterol-Ipratrop 3 mg / 0.5 (3 ml) UD INH SCH ×4 (08:50→19:15)
--- NOTE | 2017-07-05 09:14 | CP.PCM.PN ---
Subjective - Date & Time of Evaluation Date of Evaluation: 07/05/17 Time of Evaluation: 07:00 - Subjective Subjective: Patient seen and examined bedside in ICU, intubated, awake, able to open eyes, and able to move his left hand. Vent setting FIO2 50 %, RR 14, peep5. [place] with yellow urine 175 ml. Patient sedated with diprivan, received suplena by OGT. Pt seen by neurologist yesterday. no further management. Objective - Vital Signs/Intake and Output Vital Signs (last 24 hours): Temp Pulse Resp BP Pulse Ox 98.2 F 72 14 169/62 H 100 07/05/17 04:00 07/05/17 07:00 07/05/17 07:00 07/05/17 07:00 07/05/17 07:00 Intake and Output: 07/05/17 07/05/17 06:59 18:59 Intake Total 1629 Output Total 450 Balance 1179 - Medications Medications: Current Medications Albuterol/Ipratropium (Duoneb 3 Mg/0.5 Mg (3 Ml) Ud) 3 ml INH RQID [facility] Last Admin: 07/05/17 08:50 Dose: 3 ml Amlodipine Besylate (Norvasc) 10 mg PO DAILY [facility] Bacitracin (Bacitracin Oint) 1 applic TOP TID [facility] Last Admin: 07/04/17 16:03 Dose: 1 applic Calcium Acetate (Phoslo) 2,001 mg PO 0830,1200,1830 [facility] Dextrose (Dextrose 50% Inj) 0 ml IV STAT PRN; Protocol PRN Reason: Hypoglycemia Protocol Dextrose (Glutose 15) 0 gm PO ONCE PRN; Protocol PRN Reason: Hypoglycemia Protocol Enoxaparin Sodium (Lovenox) 30 mg SC DAILY [facility] PRN Reason: Protocol Last Admin: 07/04/17 09:00 Dose: 30 mg Epoetin Roel (Procrit) 14,000 unit SC MWF [facility] Ergocalciferol (Drisdol 50,000 Intl Units Cap) 1 cap PO Q7D [facility] Last Admin: 07/01/17 09:01 Dose: 1 cap Glucagon (Glucagen Diagnostic Kit) 0 mg IM STAT PRN; Protocol PRN Reason: Hypoglycemia Protocol Hydralazine HCl (Apresoline) 25 mg PO Q8 [facility] Last Admin: 07/05/17 00:13 Dose: 25 mg Linezolid (Zyvox 600mg/300ml D5w) 600 mg in 300 mls @ 300 mls/hr IVPB Q12 [facility] PRN Reason: Protocol Last Admin: 07/04/17 20:05 Dose: 300 mls/hr Cefepime HCl 1 gm/ Sodium (Chloride) 100 mls @ 100 mls/hr IVPB DAILY [facility] PRN Reason: Protocol Last Admin: 07/04/17 09:00 Dose: 100 mls/hr Micafungin Sodium 100 mg/ (Sodium Chloride) 100 mls @ 100 mls/hr IVPB DAILY [facility] PRN Reason: Protocol Last Admin: 07/04/17 15:55 Dose: 100 mls/hr Levetiracetam 500 mg/ Sodium (Chloride) 105 mls @ 210 mls/hr IVPB Q12 [facility] Last Admin: 07/04/17 20:08 Dose: 210 mls/hr Insulin Human Lispro (Humalog) 0 units SC ACHS [facility] PRN Reason: Protocol Last Admin: 07/05/17 06:31 Dose: Not Given Levothyroxine Sodium (Synthroid) 50 mcg PO DAILY@0630 [facility] Last Admin: 07/05/17 05:32 Dose: 50 mcg Metoprolol Tartrate (Lopressor) 5 mg IVP Q6 [facility] Last Admin: 07/05/17 04:00 Dose: 5 mg Pantoprazole Sodium (Protonix Inj) 40 mg IVP DAILY [facility] Last Admin: 07/04/17 09:04 Dose: 40 mg Sodium Bicarbonate (Sodium Bicarbonate Tab) 1,300 mg PO Q8 [facility] Last Admin: 07/02/17 16:23 Dose: 1,300 mg Thiamine HCl (Vitamin B1 Tab) 100 mg PO BID [facility] Last Admin: 07/04/17 16:05 Dose: 100 mg - Labs Labs: 07/05/17 05:30 07/05/17 05:30 PT 12.9 Seconds (9.8-13.1) 07/04/17 04:40 INR 1.2 (0.9-1.2) 07/04/17 04:40 APTT 35.9 Seconds (25.6-37.1) 07/04/17 04:40 - Constitutional Appears: In Acute Distress - Head Exam Head Exam: ATRAUMATIC, NORMOCEPHALIC - Eye Exam Eye Exam: Normal appearance - ENT Exam ENT Exam: Mucous Membranes Moist - Neck Exam Neck Exam: Normal Inspection - Respiratory Exam Respiratory Exam: Decreased Breath Sounds. absent: Rales, Rhonchi, Wheezes Additional comments: b/l bibasal - Cardiovascular Exam Cardiovascular Exam: REGULAR RHYTHM, +S1, +S2 - GI/Abdominal Exam GI & Abdominal Exam: Soft, Normal Bowel Sounds. absent: Tenderness - Extremities Exam Extremities Exam: absent: Pedal Edema Additional comments: Edema over both upper extremities, hands and forearm 2+ left hand dorsal side abbrasion with scab. - Neurological Exam Neurological Exam: Awake Additional comments: on ventilator, sedated but awake, able to mover helper his left hand. - Skin Additional comments: left hand dorsal side abrasion, abrasion over nose with scab formation Assessment and Plan - Assessment and Plan (Free Text) Plan: 66 yo M w/ pmh of htn, dm, CKD IIIB w/ 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, monoclonal gammopathy, recurrent L pleural effusion, admitted for sepsis, Hypothermia, CHINTAN on CKD Assessment/Plan 1) Acute Respiratory Failure secondary to worsening pleural effusion on nephrotic syndrome -Admitted ICU -s/p cardiac arrest 6 days ago with ROSC after 4 min and 2 rounds of epi -Intubated day # 2. A/C peep 5 RR 14 Fio2 50 % -ABG Ph normal, hypoxemia PO2 26 before intubation -sputum fungus cx: preliminary neg. on mycamine -f/u CXR, ABG 2) Recurrent Left Pleural effusion - S/P left thoracocentesis before admission to ICU: Removed 1.2 L of straw colored fluid. Cx neg for bact adn fungis -Transudate pleural fluid: Total serum Protein:5.5, Plerual fluid protein: 2, serum LDH: 689, Pleural fluid LDH: 323: Positive lights criteria - CXR mild improvement of pleural effusion while on lasix. Lasix Dc yesterday - IR consult consulted yest for chest tube or thoracentesis -Pulmonology consult appreciated: no benefit for bronchoscopy or lung biopsy -quantiferon gold:indeterminate 3) Multiorgan damage -Patient with poor prognosis and multiorgan damage, brain, renal, hemo -DNR status 4) HAP -resolving -recent admission before 06/22 -CXR: CXR: decrease vascular congestion mild improvement aeration, persist areas of B/L lower atelectasis and left pleural effusion -c/w cefepime day # 10, linezolid day # 11 -Procalcitonin 14.4 trending down 7.3 5) Sepsis -resolved -all cultures neg - CXR: b/l lower lobe infiltrates and small pleural effusions - ID consult appreciated: Added Mycamine - C/W Maxapine day # 10 and Linozolid day # 11 -Procalcitonin 14.4 trending down 7.3 6) Nephrotic Syndrome -secondary to DM nepropathy -Kidney biopsy 06/05/17: Diabetic nephropathy, nodular glomerulosclerosis, associated with aprox 40 % globally sclerosed glomeruli( calss III), 10-15 % segmentally sclerosed glomeruli, docal moderate interstitial fibrosis and mod vascular sclerosis, including marked hyaline arteriolosclerosis.NO EVIDENCE OF MONOCLONAL LIGHT OR HEAVY CHAIN-RELATED RENAL DISEASE. 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 -Renal duplex: no renal vein thrombosis - HIV test neg -Lasix dc 7) CHINTAN on CKD stage 4 w/ new onset of ATN - Worsening of CKD from stage 3 to stage 4 secondary to CHINTAN - Nephorologist consult appreciated: Advised to continue KEVIN inhibition and DM control. no HD for now -c/w oral bicarbonate, vit d, calcium acetate. Lasix DC - F/U with morning CMP 8) Thrombocytopenia -may be secondary to bone marrow suppresion secondary to nephrotic syndrome. -PLt trending down 82-76 -HemOnc consult suggested by [employer] [address] Randle. -F/U CBC 9) Hypothyroidism -TSH 5.58, Ft4 0.7 -Econdrinologist consult appreciated: will repeat thyroid labs, ab, high prolactin could be related to not good clearance due to CHINTAN or microadenoma. 10) Hyperprolactinemia -Pralactin level 95-58 trending down -Endocrionologist consult suggested: will repeat thyroid labs, ab, high prolactin could be related to not good clearance due to CHINTAN or microadenoma. MRI brain when pt stable. -f/u serial prolactin levels. -given Keppra yesterday for possible seizure event. EEG no report yet -MRI brain:no inracraneal hemorrhage, chronic lacunar infarct b/l cerebral, changes in dali haydee represent chronic ischemia or sequela of osmotic myelonilolysis not excluded.chronic b/l basal nuclei lacunar infarcts, mastoid ppasification secondary to intubation 11) Pressure Ulcer and TDI -Sacral region stage 2 -wound care consult appreciated 12) Hypothermia -resolved -secondary to sepsis/hypothryroidism -3 episodes of hypothermia -Bear hugger - Neuro consult appreciated: no further management -MRI brain old lacunar infarts. no intracraneal bleeding. 13) UTI ( Resolved) - on admission Initial Urine Culture: > 100,000 gram positive coci coagulase negative. Similar to previous admission - Repeat Urine Culture is negative for bacteria but now growing yeasts. - C/W Maxapine and Linozolid 14) Monoclonal Gammopathy -Bone marrow biopsy 05/05/17 hypocellular bone marrow with scattered plasma cells. no evidence of overt or advanced myelodysplasia, acute leukemia, met neoplasm or lymphoma. - Hemo-Onc consult suggested: no multiple myeloma 15) Acute diastolic CHF secondary to pulmonary edema and fluid overload -ProBNP 3500 -Echo 05/31/17 normal EF 60-65% -c/w labetalol, hydralazine 16) DM 2 -home meds hold -SSI -Hga1c 7.2 04/2017 17) HTN - Hydralazine 25 Q8 reduced by caregiver services home. To keep systolic BP 150 - Labetalol 5m IV PRN 18) Anemia -secondary to CKD/sepsis - HB: 8.2 improved w/o transfusion -no transfucion givent due to lack of consent. pt intubated. - C/W procrit 19) DVT prophylaxis -Lovenox 30 mg sc (renal dose Cr CL 18) 20) GI prophylaxis -Pantoprazol 40 mg IV
[2017-07-05] MEDS: Bacitracin OINT 15GM TOP SCH ×3 (09:24→16:49)
[2017-07-05] MEDS: levETIRAcetam 500 MG in Sodium Chloride 0.9% 100 ML IVPB SCH ×2 (09:25→20:06)
[2017-07-05] MEDS: Enoxaparin 30 mg Syringe SC SCH (09:25)
[2017-07-05] MEDS: Linezolid 600 mg in D5W 300 ml 600 MG/300 ML BAG IVPB SCH ×2 (09:30→20:06)
--- NOTE | 2017-07-05 09:33 | RAD ---
HISTORY: intubated COMPARISON: Yesterday FINDINGS: LUNGS: Endotracheal tube is identified in the distal trachea but approximately 2 centimeters above the endy. There is persistent bilateral lower lobe alveolar density, minimally improved at the right lung base. Left lung base is grossly stable with probable left effusion and additional atelectasis in the retrocardiac region. Vasculature appears mildly improved from prior study as well as aeration in the right upper lobe and left upper lobe. NG tube is noted in the region of the GE junction and stomach. No appreciable pneumothorax is seen. PLEURA: See above CARDIOVASCULAR: Mildly improved congestion. . OSSEOUS STRUCTURES: No significant abnormalities. VISUALIZED UPPER ABDOMEN: Normal. OTHER FINDINGS: None. IMPRESSION: Overall interval decrease in vascular congestion and mild interval improvement in aeration although persistent areas of bilateral lower lobe atelectasis and left pleural effusion remain.
[2017-07-05] MEDS: Micafungin 100 MG in Sodium Chloride 0.9% 100 ML IVPB SCH (10:38)
[2017-07-05] MEDS: Cefepime 1 GM in Sodium Chloride 0.9% 100 ML IVPB SCH (10:39)
--- NOTE | 2017-07-05 11:11 | PN ---
DATE: ENDOCRINOLOGY FOLLOWUP NOTE LOCATION: Room 425, ICU. SUBJECTIVE: This is a 66-year-old male presenting here with hypothermia and altered mental status and evaluated to have acute respiratory failure with underlying pleural effusion and is now being followed closely for metabolic management. His glycemic levels are fluctuating and improved and the latest glucose levels have ranged from 114 to 124 mg/dL. His latest chemistry showed a BUN of 81, sodium 148, potassium 3.7, chloride 114, CO2 of 27, glucose 112, creatinine 4.3. His latest thyroid study showed a T4 of 5.58 with a TSH of 5.55 and a free T4 of 0.70 indicative of so called early hypothyroidism with underlying autoimmune thyroiditis on the background of a new optimal metabolic control with diabetic recommendation as outpatient until the present time. So at this time we will obtain serial chemistries and supplement accordingly as needed. We will follow up with you. Bettina Mann MD
--- NOTE | 2017-07-05 14:34 | CP.PCM.CON ---
History of Present Illness - History of Present Illness History of Present Illness: 66 year old male with a history of DM, HTN, CKD, CHF, with cavitary lung lesion , anemia and elevated free light chain protein s/p bone marrow biopsy consistent with MGUS, CKD s/p kidney biopsy currently admitted with sepsis, bradycardia requiring vent support with anemia and thrombocytopenia. I currently cannot obtain a history from the patient. Review of his blood work shows he was admitted with mild thrombocytopenia which has nadired today at 76, 000. His hgb has nadired at 7.3 with no overt evidence of blood loss. Past medical, surgical, family, social history cannot be obtained from the patient. Allergies: NKA Review of systems cannot be obtained. Past Patient History - Infectious Disease Hx of Infectious Diseases: None - Tetanus Immunizations Tetanus Immunization: Unknown - Past Medical History & Family History Past Medical History?: Yes - Past Social History Alcohol: None Drugs: Denies - CARDIAC Hx Cardiac Disorders: Yes Hx Congestive Heart Failure: Yes Hx Hypercholesterolemia: No Hx Hypertension: Yes - PULMONARY Hx Chronic Obstructive Pulmonary Disease (COPD): No - NEUROLOGICAL HX Cerebrovascular Accident: No - HEENT Hx HEENT Problems: No - RENAL Hx Renal Failure: Yes - ENDOCRINE/METABOLIC Hx Diabetes Mellitus Type 1: No Hx Diabetes Mellitus Type 2: Yes Hx Hypothyroidism: No - HEMATOLOGICAL/ONCOLOGICAL Hx Anemia: Yes Hx Human Immunodeficiency Virus (HIV): No Hx Sickle Cell Disease: No - INTEGUMENTARY Hx Dermatological Problems: No - MUSCULOSKELETAL/RHEUMATOLOGICAL Hx Arthritis: No Hx Rheumatoid Arthritis: No - GASTROINTESTINAL Hx Crohn's Disease: No Hx Diverticulitis: No Hx Gall Bladder Disease: No Hx Gastritis: No Hx Pancreatitis: No - GENITOURINARY/GYNECOLOGICAL Hx Genitourinary Disorders: No - PSYCHIATRIC Hx Anxiety: Yes Hx Bipolar Disorder: Yes Hx Depression: Yes Hx Paranoia: No Hx Post Traumatic Stress Disorder: No Hx Schizophrenia: No - SURGICAL HISTORY Hx Surgeries: No - ANESTHESIA Hx Anesthesia: Yes Hx Anesthesia Reactions: No Hx Malignant Hyperthermia: No Meds Allergies/Adverse Reactions: Allergies Allergy/AdvReac Type Severity Reaction Status Date / Time No Known Allergies Allergy Verified 05/21/17 16:02 - Medications Medications: Current Medications Albuterol/Ipratropium (Duoneb 3 Mg/0.5 Mg (3 Ml) Ud) 3 ml INH RQID [facility] Last Admin: 07/05/17 11:29 Dose: 3 ml Amlodipine Besylate (Norvasc) 10 mg PO DAILY [facility] Last Admin: 07/05/17 09:52 Dose: 10 mg Bacitracin (Bacitracin Oint) 1 applic TOP TID [facility] Last Admin: 07/05/17 13:05 Dose: 1 applic Calcium Acetate (Phoslo) 2,001 mg PO 0830,1200,1830 [facility] Last Admin: 07/05/17 13:09 Dose: 2,001 mg Dextrose (Dextrose 50% Inj) 0 ml IV STAT PRN; Protocol PRN Reason: Hypoglycemia Protocol Dextrose (Glutose 15) 0 gm PO ONCE PRN; Protocol PRN Reason: Hypoglycemia Protocol Enoxaparin Sodium (Lovenox) 30 mg SC DAILY [facility] PRN Reason: Protocol Last Admin: 07/05/17 09:25 Dose: 30 mg Epoetin Roel (Procrit) 14,000 unit SC MWF [facility] Ergocalciferol (Drisdol 50,000 Intl Units Cap) 1 cap PO Q7D [facility] Last Admin: 07/01/17 09:01 Dose: 1 cap Glucagon (Glucagen Diagnostic Kit) 0 mg IM STAT PRN; Protocol PRN Reason: Hypoglycemia Protocol Hydralazine HCl (Apresoline) 25 mg PO Q8 [facility] Last Admin: 07/05/17 09:23 Dose: 25 mg Linezolid (Zyvox 600mg/300ml D5w) 600 mg in 300 mls @ 300 mls/hr IVPB Q12 [facility] PRN Reason: Protocol Last Admin: 07/05/17 09:30 Dose: 300 mls/hr Cefepime HCl 1 gm/ Sodium (Chloride) 100 mls @ 100 mls/hr IVPB DAILY [facility] PRN Reason: Protocol Last Admin: 07/05/17 10:39 Dose: 100 mls/hr Micafungin Sodium 100 mg/ (Sodium Chloride) 100 mls @ 100 mls/hr IVPB DAILY [facility] PRN Reason: Protocol Last Admin: 07/05/17 10:38 Dose: 100 mls/hr Levetiracetam 500 mg/ Sodium (Chloride) 105 mls @ 210 mls/hr IVPB Q12 [facility] Last Admin: 07/05/17 09:25 Dose: 210 mls/hr Insulin Human Lispro (Humalog) 0 units SC ACHS [facility] PRN Reason: Protocol Last Admin: 07/05/17 11:30 Dose: 3 units Levothyroxine Sodium (Synthroid) 50 mcg PO DAILY@0630 [facility] Last Admin: 07/05/17 05:32 Dose: 50 mcg Metoprolol Tartrate (Lopressor) 5 mg IVP Q6 [facility] Last Admin: 07/05/17 10:37 Dose: 5 mg Pantoprazole Sodium (Protonix Inj) 40 mg IVP DAILY [facility] Last Admin: 07/05/17 09:30 Dose: 40 mg Sodium Bicarbonate (Sodium Bicarbonate Tab) 1,300 mg PO Q8 [facility] Last Admin: 07/02/17 16:23 Dose: 1,300 mg Thiamine HCl (Vitamin B1 Tab) 100 mg PO BID [facility] Last Admin: 07/05/17 09:23 Dose: 100 mg Physical Exam - Head Exam Head Exam: ATRAUMATIC - Eye Exam Eye Exam: Normal appearance - ENT Exam ENT Exam: Mucous Membranes Dry - Respiratory Exam Respiratory Exam: Decreased Breath Sounds - Cardiovascular Exam Cardiovascular Exam: +S1, +S2 - GI/Abdominal Exam GI & Abdominal Exam: Normal Bowel Sounds - Extremities Exam Extremities exam: Positive for: normal inspection Results - Vital Signs Recent Vital Signs: Last Vital Signs Temp 99.5 F 07/05/17 12:00 Pulse 73 07/05/17 14:00 Resp 14 07/05/17 14:00 BP 157/57 H 07/05/17 14:00 Pulse Ox 100 07/05/17 14:00 - Labs Result Diagrams: 07/05/17 05:30 07/05/17 15:30 Labs: Laboratory Results - last 24 hr 07/04/17 07/04/17 07/05/17 18:10 21:09 04:00 WBC RBC Hgb Hct MCV MCH MCHC RDW Plt Count MPV Neut % (Auto) Lymph % (Auto) Todd % (Auto) Eos % (Auto) Baso % (Auto) Neut # Lymph # Todd # Eos # Baso # pCO2 42 pO2 179 H HCO3 25.8 ABG pH 7.40 ABG Total CO2 27.3 ABG O2 Saturation 100.5 H ABG O2 Content 11.1 L ABG Base Excess 1.1 ABG Hemoglobin 7.7 L ABG Carboxyhemoglobin 1.4 POC ABG HHb (Measured) -0.5 L ABG Methemoglobin 0.8 ABG O2 Capacity 11.0 L Andry Test Yes A-a O2 Difference 125.0 Hgb O2 Saturation 98.4 H Vent Mode A/c Mechanical Rate 14 FiO2 50.0 Tidal Volume 400 PEEP 5 Sodium Potassium Chloride Carbon Dioxide Anion Gap BUN Creatinine Est GFR ( Amer) Est GFR (Non-Af Amer) POC Glucose (mg/dL) 124 H 167 H Random Glucose Calcium Total Bilirubin AST ALT Alkaline Phosphatase Total Protein Albumin Globulin Albumin/Globulin Ratio 07/05/17 07/05/17 07/05/17 04:47 05:30 05:30 WBC 8.3 RBC 2.31 L Hgb 7.3 L Hct 21.9 L MCV 95.0 H MCH 31.5 H MCHC 33.1 RDW 17.2 H Plt Count 76 L MPV 9.6 Neut % (Auto) 79.3 H Lymph % (Auto) 13.8 L Todd % (Auto) 4.6 Eos % (Auto) 1.4 Baso % (Auto) 0.9 Neut # 6.6 Lymph # 1.2 Todd # 0.4 Eos # 0.1 Baso # 0.1 pCO2 pO2 HCO3 ABG pH ABG Total CO2 ABG O2 Saturation ABG O2 Content ABG Base Excess ABG Hemoglobin ABG Carboxyhemoglobin POC ABG HHb (Measured) ABG Methemoglobin ABG O2 Capacity Andry Test A-a O2 Difference Hgb O2 Saturation Vent Mode Mechanical Rate FiO2 Tidal Volume PEEP Sodium 151 H Potassium 3.7 Chloride 116 H Carbon Dioxide 25 Anion Gap 14 BUN 79 H Creatinine 4.1 H Est GFR ( Amer) 18 Est GFR (Non-Af Amer) 15 POC Glucose (mg/dL) 141 H Random Glucose 146 H Calcium 8.7 Total Bilirubin 0.2 AST 28 ALT 46 Alkaline Phosphatase 199 H Total Protein 5.4 L Albumin 2.5 L Globulin 2.9 Albumin/Globulin Ratio 0.9 L 07/05/17 11:08 WBC RBC Hgb Hct MCV MCH MCHC RDW Plt Count MPV Neut % (Auto) Lymph % (Auto) Todd % (Auto) Eos % (Auto) Baso % (Auto) Neut # Lymph # Todd # Eos # Baso # pCO2 pO2 HCO3 ABG pH ABG Total CO2 ABG O2 Saturation ABG O2 Content ABG Base Excess ABG Hemoglobin ABG Carboxyhemoglobin POC ABG HHb (Measured) ABG Methemoglobin ABG O2 Capacity Andry Test A-a O2 Difference Hgb O2 Saturation Vent Mode Mechanical Rate FiO2 Tidal Volume PEEP Sodium Potassium Chloride Carbon Dioxide Anion Gap BUN Creatinine Est GFR ( Amer) Est GFR (Non-Af Amer) POC Glucose (mg/dL) 236 H Random Glucose Calcium Total Bilirubin AST ALT Alkaline Phosphatase Total Protein Albumin Globulin Albumin/Globulin Ratio Assessment & Plan (1) Thrombocytopenia Assessment and Plan: likely sepsis related, will review peripheral smear will check fibrinogen to rule out DIC; unlikely given normal coags no current transfusion indication Status: Acute (2) Anemia Assessment and Plan: will check ferritin, retic count, b12, folate to characterize anemia of chronic disease anemia of renal disease transfusion support PRN Status: Chronic (3) MGUS (monoclonal gammopathy of unknown significance) Assessment and Plan: f/u official renal biopsy results Thank you for this interesting consult. Status: Acute
[2017-07-05] MEDS ORDERED: Hydrogen Peroxide 3% Soln (480ml) TP ONE (15:49)
[2017-07-05 17:07] LABS: CALCIUM 8.5 mg/dL (8.4-10.2)
--- NOTE | 2017-07-05 17:53 | PCM.EEG ---
Electroencephalogram Report - Electroencephalogram Report Procedure Date: 07/01/17 Interpretation: Indication: Possible seizure, encephalopathy. Medications were reviewed. Technical: This is a digitally recorded electroencephalogram. The international 10-20 electrode placement system is used for scalp electrode placement. Eighteen channels of scalp EEG are recorded Another channel was used for for ECG. Diffuse Abnormality: No well formed alpha activity was seen. Frontal intermittent rhythm delta slowing was seen. Focal abnormality: Intermittent focal slowing was seen. This activity is seen over bilateral hemisphere. Impression: This EEG is abnormal. Diffuse slowing is seen, suggestive of a diffuse abnormality of the brain. This finding is nonspecific, and can be seen in a diffuse or multifocal abnormality of the brain. Some focal slowing was seen , suggestive of a focal abnormality. Clinical correlation is needed.
--- NOTE | 2017-07-05 23:32 | CP.PCM.PN ---
Subjective - Date & Time of Evaluation Date of Evaluation: 07/05/17 Time of Evaluation: 12:15 - Subjective Subjective: Patient still intubated; alert, no complaints; Objective - Vital Signs/Intake and Output Vital Signs (last 24 hours): Temp Pulse Resp BP Pulse Ox 99.1 F 72 16 134/58 L 100 07/05/17 20:00 07/05/17 21:38 07/05/17 21:38 07/05/17 21:38 07/05/17 21:38 Intake and Output: 07/05/17 07/06/17 18:59 06:59 Intake Total 2001 935 Output Total 650 Balance 1352 935 - Medications Medications: Current Medications Albuterol/Ipratropium (Duoneb 3 Mg/0.5 Mg (3 Ml) Ud) 3 ml INH RQID [facility] Last Admin: 07/05/17 19:15 Dose: 3 ml Amlodipine Besylate (Norvasc) 10 mg PO DAILY [facility] Last Admin: 07/05/17 09:52 Dose: 10 mg Bacitracin (Bacitracin Oint) 1 applic TOP TID [facility] Last Admin: 07/05/17 16:49 Dose: 1 applic Calcium Acetate (Phoslo) 2,001 mg PO 0830,1200,1830 [facility] Last Admin: 07/05/17 17:53 Dose: 2,001 mg Dextrose (Dextrose 50% Inj) 0 ml IV STAT PRN; Protocol PRN Reason: Hypoglycemia Protocol Dextrose (Glutose 15) 0 gm PO ONCE PRN; Protocol PRN Reason: Hypoglycemia Protocol Enoxaparin Sodium (Lovenox) 30 mg SC DAILY [facility] PRN Reason: Protocol Last Admin: 07/05/17 09:25 Dose: 30 mg Epoetin Roel (Procrit) 14,000 unit SC MWF [facility] Ergocalciferol (Drisdol 50,000 Intl Units Cap) 1 cap PO Q7D [facility] Last Admin: 07/01/17 09:01 Dose: 1 cap Glucagon (Glucagen Diagnostic Kit) 0 mg IM STAT PRN; Protocol PRN Reason: Hypoglycemia Protocol Hydralazine HCl (Apresoline) 25 mg PO Q8 [facility] Last Admin: 07/05/17 16:49 Dose: 25 mg Linezolid (Zyvox 600mg/300ml D5w) 600 mg in 300 mls @ 300 mls/hr IVPB Q12 [facility] PRN Reason: Protocol Last Admin: 07/05/17 20:06 Dose: 300 mls/hr Cefepime HCl 1 gm/ Sodium (Chloride) 100 mls @ 100 mls/hr IVPB DAILY [facility] PRN Reason: Protocol Last Admin: 07/05/17 10:39 Dose: 100 mls/hr Micafungin Sodium 100 mg/ (Sodium Chloride) 100 mls @ 100 mls/hr IVPB DAILY [facility] PRN Reason: Protocol Last Admin: 07/05/17 10:38 Dose: 100 mls/hr Levetiracetam 500 mg/ Sodium (Chloride) 105 mls @ 210 mls/hr IVPB Q12 [facility] Last Admin: 07/05/17 20:06 Dose: 210 mls/hr Insulin Human Lispro (Humalog) 0 units SC ACHS [facility] PRN Reason: Protocol Last Admin: 07/05/17 21:36 Dose: Not Given Levothyroxine Sodium (Synthroid) 50 mcg PO DAILY@0630 [facility] Last Admin: 07/05/17 05:32 Dose: 50 mcg Metoprolol Tartrate (Lopressor) 5 mg IVP Q6 [facility] Last Admin: 07/05/17 21:29 Dose: 5 mg Pantoprazole Sodium (Protonix Inj) 40 mg IVP DAILY [facility] Last Admin: 07/05/17 09:30 Dose: 40 mg Sodium Bicarbonate (Sodium Bicarbonate Tab) 1,300 mg PO Q8 [facility] Last Admin: 07/02/17 16:23 Dose: 1,300 mg Thiamine HCl (Vitamin B1 Tab) 100 mg PO BID [facility] Last Admin: 07/05/17 16:48 Dose: 100 mg - Labs Labs: 07/05/17 05:30 07/05/17 15:30 PT 12.9 Seconds (9.8-13.1) 07/04/17 04:40 INR 1.2 (0.9-1.2) 07/04/17 04:40 APTT 35.9 Seconds (25.6-37.1) 07/04/17 04:40 - Constitutional Appears: Non-toxic, No Acute Distress - Eye Exam Eye Exam: absent: Scleral icterus - ENT Exam ENT Exam: Mucous Membranes Moist - Respiratory Exam Respiratory Exam: Clear to Ausculation Bilateral Additional comments: decreased breath sounds on L; - Cardiovascular Exam Cardiovascular Exam: RRR, +S1, +S2 - GI/Abdominal Exam GI & Abdominal Exam: Soft. absent: Distended, Tenderness - Extremities Exam Additional comments: moderately edematous proximal legs and b/l arms; - Neurological Exam Neurological Exam: Alert, Awake Additional comments: follows commands; - Psychiatric Exam Psychiatric exam: absent: Agitated - Skin Skin Exam: Warm. absent: Cyanosis Assessment and Plan (1) Acute renal failure Assessment & Plan: CHINTAN on CKD; serum creatinine mildly improved, showing signs of renal recovery from ATN; non-oliguric though urine output decreased from polyuria seen 2 days ago; -continue to hold diuretics; would benefit from intravascular volume repletion but holding off due to concern for worsening effusions -avoid aggressive BP control as this can compromise renal perfusion (keep SBP 140-150); Status: Acute (2) Pleural effusion Assessment & Plan: Recurrent and now involving R side; agree with CCM team assessment for R sided thoracenesis and further workup for cause of recurrence; consider pleural biopsy ; diuretics have not been shown to be helpful; Status: Chronic (3) Hypothermia Status: Acute (4) Altered mental status Status: Acute (5) SIRS (systemic inflammatory response syndrome) Assessment & Plan: On cefepime (dosed for CrCl < 20), linezolid and micafungin (no renal dose adjustment needed for latter 2); continue per ID; Status: Acute (6) Nephrotic syndrome Status: Chronic (7) Anemia Assessment & Plan: Worsening despite being on EPO; will increase dose to 14,000 u qMWF; Status: Chronic (8) Chronic kidney disease, stage 3 (moderate) Status: Chronic (9) Hypertensive CKD (chronic kidney disease) Assessment & Plan: BP elevated; restarting amlodipine 10 mg daily; Status: Acute
[2017-07-06] MEDS: Metoprolol 1 mg/ml Inj IVP SCH ×4 (04:42→21:19)
[2017-07-06 04:43] LABS: ABG ALLEN TEST YES; ARTERIAL BLOOD GAS HCO3 24.9 mmol/L (21-28); ARTERIAL BLOOD GAS HEMOGLOBIN 6.9 g/dL (11.7-17.4); ARTERIAL BLOOD GAS O2 CAPACITY 9.7 mL/dL (16-24); ARTERIAL BLOOD GAS O2 CONTENT 9.8 ML/dL (15-23); ARTERIAL BLOOD GAS O2 SAT 100.6 % (95-98); ARTERIAL BLOOD GAS PCO2 45 mm/Hg (35-45); ARTERIAL BLOOD GAS PH 7.36 (7.35-7.45); ARTERIAL BLOOD GAS PO2 120 mm/Hg (80-100); ARTERIAL BLOOD GAS TCO2 26.8 mmol/L (22-28)
[2017-07-06] MEDS: Levothyroxine 50 MCG TAB PO SCH (06:28)
[2017-07-06 06:29] LABS: BASO # 0.1 K/uL (0.0-0.2); BASO % 0.9 % (0.0-2.0); EOS # 0.2 K/uL (0.0-0.7); EOS % 1.8 % (0.0-4.0); LYMPH # 0.8 K/uL (1.0-4.3); LYMPH % 9.1 % (20.0-40.0); MEAN CELL VOLUME 95.1 fl (80.0-94.0); MEAN CORPUSCULAR HEMOGLOBIN 31.2 pg (27.0-31.0); MEAN CORPUSCULAR HGB CONC 32.8 g/dL (33.0-37.0); MEAN PLATELET VOLUME 10.5 fl (7.2-11.7); MONO # 0.3 K/uL (0.0-0.8); MONO % 3.6 % (0.0-10.0); NEUT # 7.4 K/uL (1.8-7.0); NEUT % 84.6 % (50.0-75.0); NRBC % 0.2 % (0.0-0.0); RBC 2.05 Mil/uL (4.40-5.90); RED CELL DISTRIBUTION WIDTH 16.8 % (11.5-14.5); WHITE BLOOD COUNT 8.8 K/uL (4.8-10.8)
[2017-07-06] MEDS: Insulin Lispro (humaLOG) 100 Units/ml Inj SC SCH ×5 (06:31→22:38)
[2017-07-06 06:33] LABS: HEMOGLOBIN 6.4 g/dL (12.0-18.0); PLATELET COUNT 63 K/uL (130-400)
[2017-07-06 06:50] LABS: ALB/GLOB RATIO 0.8 (1.0-2.1); ALBUMIN 2.2 g/dL (3.5-5.0); CALCIUM 8.2 mg/dL (8.4-10.2)
[2017-07-06] MEDS: Albuterol-Ipratrop 3 mg / 0.5 (3 ml) UD INH SCH ×4 (07:32→19:38)
[2017-07-06] MEDS: levETIRAcetam 500 MG in Sodium Chloride 0.9% 100 ML IVPB SCH ×2 (08:30→21:18)
[2017-07-06] MEDS: Bacitracin OINT 15GM TOP SCH ×3 (08:34→17:06)
[2017-07-06] MEDS: Enoxaparin 30 mg Syringe SC SCH (08:35)
[2017-07-06] MEDS: Linezolid 600 mg in D5W 300 ml 600 MG/300 ML BAG IVPB SCH ×2 (08:38→21:18)
[2017-07-06] MEDS: Cefepime 1 GM in Sodium Chloride 0.9% 100 ML IVPB SCH (09:03)
--- NOTE | 2017-07-06 09:24 | CP.PCM.PN ---
Subjective - Date & Time of Evaluation Date of Evaluation: 07/06/17 Time of Evaluation: 09:23 - Subjective Subjective: no overnight events, intubated, eye opening, [place] in/making urine Objective - Vital Signs/Intake and Output Vital Signs (last 24 hours): Temp Pulse Resp BP Pulse Ox 97.9 F 68 30 H 138/57 L 100 07/06/17 08:00 07/06/17 08:37 07/06/17 08:00 07/06/17 08:37 07/06/17 08:00 Intake and Output: 07/06/17 07/06/17 06:59 18:59 Intake Total 2140 94 Output Total 450 10 Balance 1690 84 - Medications Medications: Current Medications Albuterol/Ipratropium (Duoneb 3 Mg/0.5 Mg (3 Ml) Ud) 3 ml INH RQID [facility] Last Admin: 07/06/17 07:32 Dose: 3 ml Amlodipine Besylate (Norvasc) 10 mg PO DAILY [facility] Last Admin: 07/06/17 08:37 Dose: 10 mg Bacitracin (Bacitracin Oint) 1 applic TOP TID [facility] Last Admin: 07/06/17 08:34 Dose: 1 applic Calcium Acetate (Phoslo) 2,001 mg PO 0830,1200,1830 [facility] Last Admin: 07/06/17 08:36 Dose: 2,001 mg Dextrose (Dextrose 50% Inj) 0 ml IV STAT PRN; Protocol PRN Reason: Hypoglycemia Protocol Dextrose (Glutose 15) 0 gm PO ONCE PRN; Protocol PRN Reason: Hypoglycemia Protocol Enoxaparin Sodium (Lovenox) 30 mg SC DAILY [facility] PRN Reason: Protocol Last Admin: 07/06/17 08:35 Dose: 30 mg Epoetin Roel (Procrit) 14,000 unit SC MWF [facility] Ergocalciferol (Drisdol 50,000 Intl Units Cap) 1 cap PO Q7D [facility] Last Admin: 07/01/17 09:01 Dose: 1 cap Glucagon (Glucagen Diagnostic Kit) 0 mg IM STAT PRN; Protocol PRN Reason: Hypoglycemia Protocol Hydralazine HCl (Apresoline) 25 mg PO Q8 [facility] Last Admin: 07/06/17 08:34 Dose: 25 mg Linezolid (Zyvox 600mg/300ml D5w) 600 mg in 300 mls @ 300 mls/hr IVPB Q12 [facility] PRN Reason: Protocol Last Admin: 07/06/17 08:38 Dose: 300 mls/hr Cefepime HCl 1 gm/ Sodium (Chloride) 100 mls @ 100 mls/hr IVPB DAILY [facility] PRN Reason: Protocol Last Admin: 07/06/17 09:03 Dose: 100 mls/hr Micafungin Sodium 100 mg/ (Sodium Chloride) 100 mls @ 100 mls/hr IVPB DAILY [facility] PRN Reason: Protocol Last Admin: 07/05/17 10:38 Dose: 100 mls/hr Levetiracetam 500 mg/ Sodium (Chloride) 105 mls @ 210 mls/hr IVPB Q12 [facility] Last Admin: 07/06/17 08:30 Dose: 210 mls/hr Insulin Human Lispro (Humalog) 0 units SC ACHS [facility] PRN Reason: Protocol Last Admin: 07/06/17 06:32 Dose: 3 units Levothyroxine Sodium (Synthroid) 50 mcg PO DAILY@0630 [facility] Last Admin: 07/06/17 06:28 Dose: 50 mcg Metoprolol Tartrate (Lopressor) 5 mg IVP Q6 [facility] Last Admin: 07/06/17 04:42 Dose: 5 mg Pantoprazole Sodium (Protonix Inj) 40 mg IVP DAILY [facility] Last Admin: 07/06/17 08:36 Dose: 40 mg Sodium Bicarbonate (Sodium Bicarbonate Tab) 1,300 mg PO Q8 [facility] Last Admin: 07/02/17 16:23 Dose: 1,300 mg Thiamine HCl (Vitamin B1 Tab) 100 mg PO BID [facility] Last Admin: 07/06/17 08:35 Dose: 100 mg - Labs Labs: 07/06/17 05:30 07/06/17 05:30 PT 12.9 Seconds (9.8-13.1) 07/04/17 04:40 INR 1.2 (0.9-1.2) 07/04/17 04:40 APTT 35.9 Seconds (25.6-37.1) 07/04/17 04:40 - Constitutional Appears: Non-toxic, No Acute Distress - Head Exam Head Exam: ATRAUMATIC, NORMAL INSPECTION - Eye Exam Eye Exam: EOMI, Normal appearance - ENT Exam Additional comments: intubated - Neck Exam Neck Exam: Normal Inspection - Respiratory Exam Respiratory Exam: Decreased Breath Sounds. absent: Wheezes - Cardiovascular Exam Cardiovascular Exam: REGULAR RHYTHM - GI/Abdominal Exam GI & Abdominal Exam: Soft - Extremities Exam Additional comments: UE edema - Neurological Exam Neurological Exam: Alert - Skin Skin Exam: Dry, Warm Assessment and Plan - Assessment and Plan (Free Text) Assessment: 66 yo M w/ PMHx HTN, DM, CKD IIIB w/ 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, monoclonal gammopathy, recurrent L pleural effusion, admitted for sepsis, Hypothermia, CHINTAN on CKD Assessment/Plan 1) Acute Respiratory Failure -improved -SBT as tolerated, and extubate if indicated -sputum fungus cx: preliminary neg. on mycamine 2) Recurrent Left Pleural effusion, Transudate -Pulmonology consult appreciated: no benefit for bronchoscopy or lung biopsy -IR c/s -quantiferon gold:positive then indeterminate 3) HAP -improved -c/w cefepime day # 11, linezolid day # 12 -Procalcitonin 14.4 trending down 7.3 4) DM nephropathy -Kidney biopsy 06/05/17: Diabetic nephropathy, nodular glomerulosclerosis, associated with aprox 40 % globally sclerosed glomeruli( calss III), 10-15 % segmentally sclerosed glomeruli, docal moderate interstitial fibrosis and mod vascular sclerosis, including marked hyaline arteriolosclerosis.NO EVIDENCE OF MONOCLONAL LIGHT OR HEAVY CHAIN-RELATED RENAL DISEASE. -Nephro consult appreciated -Renal duplex: no renal vein thrombosis 5) CHINTAN on CKD stage 4 w/ new onset of ATN - Nephorologist consult appreciated -hold Lasix DC 6) Thrombocytopenia -HemOnc consult 7) Hypothyroidism, subclinical -Econdrinologist consult appreciated 8) Hyperprolactinemia -Prolactin trending down -Endocrionologist consult suggested -MRI brain:no inracraneal hemorrhage, chronic lacunar infarct b/l cerebral, changes in dali haydee represent chronic ischemia or sequela of osmotic myelonilolysis not excluded.chronic b/l basal nuclei lacunar infarcts, mastoid ppasification secondary to intubation 9) Pressure Ulcer and TDI -Sacral region stage 2 -wound care consult appreciated 10) Acute diastolic CHF -Echo 05/31/17 normal EF 60-65% -c/w labetalol, hydralazine 11) DM 2 -SSI 12) HTN - Hydralazine 25 Q8 reduced by broth setter. To keep systolic BP 150 - Labetalol 5m IV PRN 13) Anemia -secondary to CKD -transfucion 1 u pRBC today -C/W procrit 14) DVT prophylaxis -Lovenox 30 mg sc (renal dose) 25) GI prophylaxis -Pantoprazol 40 mg IV
[2017-07-06] MEDS: Micafungin 100 MG in Sodium Chloride 0.9% 100 ML IVPB SCH (09:43)
--- NOTE | 2017-07-06 09:56 | CP.PCM.PN ---
Subjective - Date & Time of Evaluation Date of Evaluation: 07/06/17 Time of Evaluation: 09:56 - Subjective Subjective: STILL INTUBATED ALERT AND AWAKE CASE DISCUSSED WITH PMD--RE--FURTHER INTERVENTION FOR PLEURAL EFFUSIONS PT IS NOT A CANDIDATE FOR PLOEUREDYSES OR THORACIC SURGERY INTERVENTION PLEURAL EFFUSION IS PROBABLY DUE TO CHRONIC KIDNEY DZ THE RISKS OF SURGERY OUTWEIGH THE BENEFITS WILL ADVOCATE SUPPORTIVE AND COMFORT CARE PROGNOSIS IS POOR Objective - Vital Signs/Intake and Output Vital Signs (last 24 hours): Temp Pulse Resp BP Pulse Ox 97.9 F 68 30 H 138/57 L 100 07/06/17 08:00 07/06/17 08:37 07/06/17 08:00 07/06/17 08:37 07/06/17 08:00 Intake and Output: 07/06/17 07/06/17 06:59 18:59 Intake Total 2140 94 Output Total 450 10 Balance 1690 84 - Medications Medications: Current Medications Albuterol/Ipratropium (Duoneb 3 Mg/0.5 Mg (3 Ml) Ud) 3 ml INH RQID [facility] Last Admin: 07/06/17 07:32 Dose: 3 ml Amlodipine Besylate (Norvasc) 10 mg PO DAILY [facility] Last Admin: 07/06/17 08:37 Dose: 10 mg Bacitracin (Bacitracin Oint) 1 applic TOP TID [facility] Last Admin: 07/06/17 08:34 Dose: 1 applic Calcium Acetate (Phoslo) 2,001 mg PO 0830,1200,1830 [facility] Last Admin: 07/06/17 08:36 Dose: 2,001 mg Dextrose (Dextrose 50% Inj) 0 ml IV STAT PRN; Protocol PRN Reason: Hypoglycemia Protocol Dextrose (Glutose 15) 0 gm PO ONCE PRN; Protocol PRN Reason: Hypoglycemia Protocol Enoxaparin Sodium (Lovenox) 30 mg SC DAILY [facility] PRN Reason: Protocol Last Admin: 07/06/17 08:35 Dose: 30 mg Epoetin Roel (Procrit) 14,000 unit SC MWF [facility] Ergocalciferol (Drisdol 50,000 Intl Units Cap) 1 cap PO Q7D [facility] Last Admin: 07/01/17 09:01 Dose: 1 cap Glucagon (Glucagen Diagnostic Kit) 0 mg IM STAT PRN; Protocol PRN Reason: Hypoglycemia Protocol Hydralazine HCl (Apresoline) 25 mg PO Q8 [facility] Last Admin: 07/06/17 08:34 Dose: 25 mg Linezolid (Zyvox 600mg/300ml D5w) 600 mg in 300 mls @ 300 mls/hr IVPB Q12 [facility] PRN Reason: Protocol Last Admin: 07/06/17 08:38 Dose: 300 mls/hr Cefepime HCl 1 gm/ Sodium (Chloride) 100 mls @ 100 mls/hr IVPB DAILY [facility] PRN Reason: Protocol Last Admin: 07/06/17 09:03 Dose: 100 mls/hr Micafungin Sodium 100 mg/ (Sodium Chloride) 100 mls @ 100 mls/hr IVPB DAILY [facility] PRN Reason: Protocol Last Admin: 07/06/17 09:43 Dose: 100 mls/hr Levetiracetam 500 mg/ Sodium (Chloride) 105 mls @ 210 mls/hr IVPB Q12 [facility] Last Admin: 07/06/17 08:30 Dose: 210 mls/hr Insulin Human Lispro (Humalog) 0 units SC ACHS [facility] PRN Reason: Protocol Last Admin: 07/06/17 06:32 Dose: 3 units Levothyroxine Sodium (Synthroid) 50 mcg PO DAILY@0630 [facility] Last Admin: 07/06/17 06:28 Dose: 50 mcg Metoprolol Tartrate (Lopressor) 5 mg IVP Q6 [facility] Last Admin: 07/06/17 04:42 Dose: 5 mg Pantoprazole Sodium (Protonix Inj) 40 mg IVP DAILY [facility] Last Admin: 07/06/17 08:36 Dose: 40 mg Sodium Bicarbonate (Sodium Bicarbonate Tab) 1,300 mg PO Q8 [facility] Last Admin: 07/02/17 16:23 Dose: 1,300 mg Thiamine HCl (Vitamin B1 Tab) 100 mg PO BID [facility] Last Admin: 07/06/17 08:35 Dose: 100 mg - Labs Labs: 07/06/17 05:30 07/06/17 05:30 PT 12.9 Seconds (9.8-13.1) 07/04/17 04:40 INR 1.2 (0.9-1.2) 07/04/17 04:40 APTT 35.9 Seconds (25.6-37.1) 07/04/17 04:40
--- NOTE | 2017-07-06 10:58 | RAD ---
HISTORY: intubated COMPARISON: Yesterday FINDINGS: LUNGS: Frontal portable view of the chest reveal stable position of the endotracheal tube and NG tube. Persistent bilateral lower lung field areas of atelectasis with pleural effusions are once again seen. There may be some mild increase in subsegmental atelectasis at the right lung base. Vasculature is unchanged. No new infiltrate or pneumothorax is seen in the upper lung culver. PLEURA: Bilateral effusions and atelectasis. CARDIOVASCULAR: No increase in vascular congestion. OSSEOUS STRUCTURES: No significant abnormalities. VISUALIZED UPPER ABDOMEN: Normal. OTHER FINDINGS: None. IMPRESSION: Bilateral effusions and atelectasis at the lung bases. There is mild increase in atelectasis at the right lung base. Status post intubation.
[2017-07-06 12:18] LABS: BASOPHIL 2 % (0-2); EOSINOPHIL 1 % (0-7); LYMPHOCYTE 5 % (20-50); MONOCYTE 6 % (0-10); NEUTROPHIL 86 % (42-75); PLATELET ESTIMATE DECREASED (NORMAL); TOTAL CELLS COUNTED 100
[2017-07-06 12:19] LABS: ANISOCYTOSIS SLIGHT
[2017-07-06 12:31] LABS: GIANT PLATELETS PRESENT; HYPOCHROMIC MODERATE; LARGE PLATELETS PRESENT; OVALOCYTES SLIGHT; SCHISTOCYTES SLIGHT
--- NOTE | 2017-07-06 13:00 | PN ---
DATE: ENDOCRINOLOGY FOLLOWUP NOTE LOCATION: In ICU room #425. SUBJECTIVE: This is a 66-year-old male, presenting here with acute respiratory failure and underlying pleural effusion and is now being followed closely for metabolic management. He has since then been extubated and is tolerating the high flow oxygen by nasal cannula as noted thereof. 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 He has been started on low dose levothyroxine replacement given and the latest TSH level is 5.55 with a T4 of 5.58 and a free T4 of 0.70. His latest chemistry shows a BUN of 78, sodium 148, potassium 3.6, chloride 113, CO2 of 26, glucose 200 and creatinine 3.6. His glucose values have been slightly elevated that are ranging from 202 to 223 mg/dL. So at this time, we will continue the low dose levothyroxine given as 50 mcg daily as ordered. We will consider basal insulin if hyperglycemic levels persists as noted. We would expect elevate prolactin levels, the last one of which was 58.3 only because of the underlying progressive renal insufficiency with reduced clearance of the prolactin levels as noted. We will obtain serial chemistries and supplement accordingly as needed. We will follow up with you. Bettina Mann MD
--- NOTE | 2017-07-06 13:05 | CP.PCM.PN ---
Subjective - Date & Time of Evaluation Date of Evaluation: 07/06/17 Time of Evaluation: 12:30 - Subjective Subjective: 66 yo M w/ pmh of htn, dm, CKD IIIB, recurrent pleural effusion, monoclonal gammopathy, admitted with recurrent pleural effusion, hypoxemic resp failure now intubated, SIRS, HCAP, and CHINTAN; Patient alert on vent; denies any pain; off of bear hugger; Objective - Vital Signs/Intake and Output Vital Signs (last 24 hours): Temp Pulse Resp BP Pulse Ox 97.8 F 70 19 151/58 H 100 07/06/17 12:00 07/06/17 12:00 07/06/17 12:00 07/06/17 12:00 07/06/17 12:00 Intake and Output: 07/06/17 07/06/17 06:59 18:59 Intake Total 2140 1134 Output Total 450 10 Balance 1690 1124 - Medications Medications: Current Medications Albuterol/Ipratropium (Duoneb 3 Mg/0.5 Mg (3 Ml) Ud) 3 ml INH RQID [facility] Last Admin: 07/06/17 11:25 Dose: 3 ml Amlodipine Besylate (Norvasc) 10 mg PO DAILY [facility] Last Admin: 07/06/17 08:37 Dose: 10 mg Bacitracin (Bacitracin Oint) 1 applic TOP TID [facility] Last Admin: 07/06/17 08:34 Dose: 1 applic Calcium Acetate (Phoslo) 2,001 mg PO 0830,1200,1830 [facility] Last Admin: 07/06/17 08:36 Dose: 2,001 mg Dextrose (Dextrose 50% Inj) 0 ml IV STAT PRN; Protocol PRN Reason: Hypoglycemia Protocol Dextrose (Glutose 15) 0 gm PO ONCE PRN; Protocol PRN Reason: Hypoglycemia Protocol Enoxaparin Sodium (Lovenox) 30 mg SC DAILY [facility] PRN Reason: Protocol Last Admin: 07/06/17 08:35 Dose: 30 mg Epoetin Roel (Procrit) 14,000 unit SC MWF [facility] Ergocalciferol (Drisdol 50,000 Intl Units Cap) 1 cap PO Q7D [facility] Last Admin: 07/01/17 09:01 Dose: 1 cap Glucagon (Glucagen Diagnostic Kit) 0 mg IM STAT PRN; Protocol PRN Reason: Hypoglycemia Protocol Hydralazine HCl (Apresoline) 25 mg PO Q8 [facility] Last Admin: 07/06/17 08:34 Dose: 25 mg Linezolid (Zyvox 600mg/300ml D5w) 600 mg in 300 mls @ 300 mls/hr IVPB Q12 [facility] PRN Reason: Protocol Last Admin: 07/06/17 08:38 Dose: 300 mls/hr Cefepime HCl 1 gm/ Sodium (Chloride) 100 mls @ 100 mls/hr IVPB DAILY [facility] PRN Reason: Protocol Last Admin: 07/06/17 09:03 Dose: 100 mls/hr Micafungin Sodium 100 mg/ (Sodium Chloride) 100 mls @ 100 mls/hr IVPB DAILY [facility] PRN Reason: Protocol Last Admin: 07/06/17 09:43 Dose: 100 mls/hr Levetiracetam 500 mg/ Sodium (Chloride) 105 mls @ 210 mls/hr IVPB Q12 [facility] Last Admin: 07/06/17 08:30 Dose: 210 mls/hr Insulin Human Lispro (Humalog) 0 units SC ACHS [facility] PRN Reason: Protocol Last Admin: 07/06/17 06:32 Dose: 3 units Levothyroxine Sodium (Synthroid) 50 mcg PO DAILY@0630 [facility] Last Admin: 07/06/17 06:28 Dose: 50 mcg Metoprolol Tartrate (Lopressor) 5 mg IVP Q6 [facility] Last Admin: 07/06/17 11:08 Dose: Not Given Pantoprazole Sodium (Protonix Inj) 40 mg IVP DAILY [facility] Last Admin: 07/06/17 08:36 Dose: 40 mg Sodium Bicarbonate (Sodium Bicarbonate Tab) 1,300 mg PO Q8 [facility] Last Admin: 07/02/17 16:23 Dose: 1,300 mg Thiamine HCl (Vitamin B1 Tab) 100 mg PO BID [facility] Last Admin: 07/06/17 08:35 Dose: 100 mg - Labs Labs: 07/06/17 05:30 07/06/17 05:30 PT 12.9 Seconds (9.8-13.1) 07/04/17 04:40 INR 1.2 (0.9-1.2) 07/04/17 04:40 APTT 35.9 Seconds (25.6-37.1) 07/04/17 04:40 - Constitutional Appears: Non-toxic, No Acute Distress, Chronically Ill - Eye Exam Eye Exam: absent: Scleral icterus - ENT Exam ENT Exam: Mucous Membranes Moist - Respiratory Exam Respiratory Exam: Clear to Ausculation Bilateral. absent: Respiratory Distress Additional comments: mildly decreased breath sounds on L; - Cardiovascular Exam Cardiovascular Exam: RRR, +S1, +S2 - GI/Abdominal Exam GI & Abdominal Exam: Soft. absent: Distended, Tenderness - Exam Exam: absent: Bladder Distension - Extremities Exam Additional comments: proximal leg edema, b/l arm edema; - Neurological Exam Neurological Exam: Alert, Awake Additional comments: following commands; - Psychiatric Exam Psychiatric exam: absent: Agitated - Skin Skin Exam: Warm. absent: Cyanosis Assessment and Plan (1) Acute renal failure Assessment & Plan: CHINTAN on CKD; ATN, showing signs of resolving; non-oliguric; concern for third spacing and lack of adequate intravascular volume despite having adequate BP; patient to get prbc transfusion today; will also give IV albumin 25% x 2 doses; continue to hold diuretics; Status: Acute (2) Pleural effusion Assessment & Plan: Acute on chronic; workup on multiple occasions, with thoracenteses done on L, indicative of transudate; being attributed CKD and nephrotic syndrome, however , while these are contributory, the rapidity of recurrence indicates some other superimposed process; Nevertheless, we will try to treat nephrotic syndrome with maximal KEVIN blockade even if we have to deal with the consequences of such as resulting hyperkalemia which was seen previously; as a last resort, we may have to intentionally decrease GFR further (such as with NSAIDS) to decrease proteinuria and eventually start dialysis prematurely; For now, we will wait for renal function to recover further from ATN before restarting KEVIN blockade and diuretics; Status: Chronic (3) Nephrotic syndrome Assessment & Plan: See above; causing increased morbidity and overall declining health; secondary to diabetic nephropathy so no role for immunosuppressive treatment; will restart KEVIN blockade as soon as possible; Status: Chronic (4) Chronic kidney disease, stage 3 (moderate) Assessment & Plan: Secondary to biopsy proven diabetic nephropathy; possibly worsened by NSAID use ; no significant immunoglobulin deposition on renal biopsy despite high serum kappa predominance; Status: Chronic (5) Hypertensive CKD (chronic kidney disease) Assessment & Plan: On amlodipine 10 mg daily, hydralazine 25 mg q8h and metoprolol; continue same; Status: Acute (6) Hypothermia Status: Acute (7) Altered mental status Status: Acute (8) SIRS (systemic inflammatory response syndrome) Status: Acute (9) Anemia Status: Chronic - Assessment and Plan (Free Text) Assessment: Critical care time assessing patient and discussing with primary/CCM team > 35 minutes;
--- NOTE | 2017-07-06 14:26 | CP.PCM.PN ---
Subjective - Date & Time of Evaluation Date of Evaluation: 07/06/17 Time of Evaluation: 10:00 - Subjective Subjective: arousable on vent intubated nad Objective - Vital Signs/Intake and Output Vital Signs (last 24 hours): Temp Pulse Resp BP Pulse Ox 97.8 F 70 20 141/59 L 100 07/06/17 12:00 07/06/17 14:00 07/06/17 14:00 07/06/17 14:00 07/06/17 14:00 Intake and Output: 07/06/17 07/06/17 06:59 18:59 Intake Total 2140 1622 Output Total 450 10 Balance 1690 1612 - Medications Medications: Current Medications Albuterol/Ipratropium (Duoneb 3 Mg/0.5 Mg (3 Ml) Ud) 3 ml INH RQID [facility] Last Admin: 07/06/17 11:25 Dose: 3 ml Amlodipine Besylate (Norvasc) 10 mg PO DAILY [facility] Last Admin: 07/06/17 08:37 Dose: 10 mg Bacitracin (Bacitracin Oint) 1 applic TOP TID [facility] Last Admin: 07/06/17 14:17 Dose: 1 applic Calcium Acetate (Phoslo) 2,001 mg PO 0830,1200,1830 [facility] Last Admin: 07/06/17 13:00 Dose: 2,001 mg Dextrose (Dextrose 50% Inj) 0 ml IV STAT PRN; Protocol PRN Reason: Hypoglycemia Protocol Dextrose (Glutose 15) 0 gm PO ONCE PRN; Protocol PRN Reason: Hypoglycemia Protocol Enoxaparin Sodium (Lovenox) 30 mg SC DAILY [facility] PRN Reason: Protocol Last Admin: 07/06/17 08:35 Dose: 30 mg Epoetin Roel (Procrit) 14,000 unit SC MWF [facility] Ergocalciferol (Drisdol 50,000 Intl Units Cap) 1 cap PO Q7D [facility] Last Admin: 07/01/17 09:01 Dose: 1 cap Glucagon (Glucagen Diagnostic Kit) 0 mg IM STAT PRN; Protocol PRN Reason: Hypoglycemia Protocol Hydralazine HCl (Apresoline) 25 mg PO Q8 [facility] Last Admin: 07/06/17 08:34 Dose: 25 mg Linezolid (Zyvox 600mg/300ml D5w) 600 mg in 300 mls @ 300 mls/hr IVPB Q12 [facility] PRN Reason: Protocol Last Admin: 07/06/17 08:38 Dose: 300 mls/hr Cefepime HCl 1 gm/ Sodium (Chloride) 100 mls @ 100 mls/hr IVPB DAILY [facility] PRN Reason: Protocol Last Admin: 07/06/17 09:03 Dose: 100 mls/hr Micafungin Sodium 100 mg/ (Sodium Chloride) 100 mls @ 100 mls/hr IVPB DAILY [facility] PRN Reason: Protocol Last Admin: 07/06/17 09:43 Dose: 100 mls/hr Levetiracetam 500 mg/ Sodium (Chloride) 105 mls @ 210 mls/hr IVPB Q12 [facility] Last Admin: 07/06/17 08:30 Dose: 210 mls/hr Insulin Human Lispro (Humalog) 0 units SC ACHS [facility] PRN Reason: Protocol Last Admin: 07/06/17 11:30 Dose: 3 units Levothyroxine Sodium (Synthroid) 50 mcg PO DAILY@0630 [facility] Last Admin: 07/06/17 06:28 Dose: 50 mcg Metoprolol Tartrate (Lopressor) 5 mg IVP Q6 [facility] Last Admin: 07/06/17 11:08 Dose: Not Given Pantoprazole Sodium (Protonix Inj) 40 mg IVP DAILY [facility] Last Admin: 07/06/17 08:36 Dose: 40 mg Sodium Bicarbonate (Sodium Bicarbonate Tab) 1,300 mg PO Q8 [facility] Last Admin: 07/02/17 16:23 Dose: 1,300 mg Thiamine HCl (Vitamin B1 Tab) 100 mg PO BID [facility] Last Admin: 07/06/17 08:35 Dose: 100 mg - Labs Labs: 07/06/17 05:30 07/06/17 05:30 PT 12.9 Seconds (9.8-13.1) 07/04/17 04:40 INR 1.2 (0.9-1.2) 07/04/17 04:40 APTT 35.9 Seconds (25.6-37.1) 07/04/17 04:40 - Constitutional Appears: Non-toxic, Confused, Cachectic, Chronically Ill - Head Exam Head Exam: NORMOCEPHALIC - Eye Exam Eye Exam: absent: Scleral icterus - ENT Exam ENT Exam: Mucous Membranes Dry - Neck Exam Neck Exam: absent: Lymphadenopathy - Respiratory Exam Respiratory Exam: Decreased Breath Sounds - Cardiovascular Exam Cardiovascular Exam: REGULAR RHYTHM - GI/Abdominal Exam GI & Abdominal Exam: Distended, Soft - Rectal Exam Rectal Exam: Deferred - Exam Exam: NORMAL INSPECTION - Extremities Exam Extremities Exam: Pedal Edema - Back Exam Back Exam: absent: CVA tenderness (L), CVA tenderness (R) - Neurological Exam Neurological Exam: Alert, Awake - Psychiatric Exam Psychiatric exam: Depressed - Skin Skin Exam: Dry Assessment and Plan (1) Acute renal failure Status: Acute (2) Altered mental status Status: Acute (3) CHF (congestive heart failure) Status: Acute (4) DM2 (diabetes mellitus, type 2) Status: Acute (5) HCAP (healthcare-associated pneumonia) Status: Acute (6) Pleural effusion Status: Acute (7) SIRS (systemic inflammatory response syndrome) Status: Acute (8) Sepsis Status: Acute (9) Acute kidney injury superimposed on chronic kidney disease Status: Acute (10) Alcohol abuse Status: Acute (11) Anasarca Status: Acute (12) Anemia of renal disease Status: Acute (13) Bilateral lower extremity edema Status: Acute
--- NOTE | 2017-07-06 20:18 | CP.PCM.PN ---
Subjective - Date & Time of Evaluation Date of Evaluation: 07/06/17 Time of Evaluation: 17:00 - Subjective Subjective: Vented,awake Case discussed with rock dust sprayer; agree with PRBC transfusion Objective - Vital Signs/Intake and Output Vital Signs (last 24 hours): Temp Pulse Resp BP Pulse Ox 98.0 F 69 22 144/57 L 100 07/06/17 19:28 07/06/17 19:28 07/06/17 19:28 07/06/17 19:28 07/06/17 19:28 Intake and Output: 07/06/17 07/07/17 18:59 06:59 Intake Total 2110 Output Total 660 Balance 1450 - Medications Medications: Current Medications Albumin Human (Albumin Human 25% (12.5 Gm/50 Ml)) 12.5 gm IV Q6H [facility] Stop: 07/07/17 00:46 Albuterol/Ipratropium (Duoneb 3 Mg/0.5 Mg (3 Ml) Ud) 3 ml INH RQID [facility] Last Admin: 07/06/17 19:38 Dose: 3 ml Amlodipine Besylate (Norvasc) 10 mg PO DAILY [facility] Last Admin: 07/06/17 08:37 Dose: 10 mg Bacitracin (Bacitracin Oint) 1 applic TOP TID [facility] Last Admin: 07/06/17 17:06 Dose: 1 applic Calcium Acetate (Phoslo) 2,001 mg PO 0830,1200,1830 [facility] Last Admin: 07/06/17 17:46 Dose: 2,001 mg Dextrose (Dextrose 50% Inj) 0 ml IV STAT PRN; Protocol PRN Reason: Hypoglycemia Protocol Dextrose (Glutose 15) 0 gm PO ONCE PRN; Protocol PRN Reason: Hypoglycemia Protocol Enoxaparin Sodium (Lovenox) 30 mg SC DAILY [facility] PRN Reason: Protocol Last Admin: 07/06/17 08:35 Dose: 30 mg Epoetin Roel (Procrit) 14,000 unit SC MWF [facility] Ergocalciferol (Drisdol 50,000 Intl Units Cap) 1 cap PO Q7D [facility] Last Admin: 07/01/17 09:01 Dose: 1 cap Glucagon (Glucagen Diagnostic Kit) 0 mg IM STAT PRN; Protocol PRN Reason: Hypoglycemia Protocol Hydralazine HCl (Apresoline) 25 mg PO Q8 [facility] Last Admin: 07/06/17 17:06 Dose: 25 mg Linezolid (Zyvox 600mg/300ml D5w) 600 mg in 300 mls @ 300 mls/hr IVPB Q12 [facility] PRN Reason: Protocol Last Admin: 07/06/17 08:38 Dose: 300 mls/hr Cefepime HCl 1 gm/ Sodium (Chloride) 100 mls @ 100 mls/hr IVPB DAILY [facility] PRN Reason: Protocol Last Admin: 07/06/17 09:03 Dose: 100 mls/hr Micafungin Sodium 100 mg/ (Sodium Chloride) 100 mls @ 100 mls/hr IVPB DAILY [facility] PRN Reason: Protocol Last Admin: 07/06/17 09:43 Dose: 100 mls/hr Levetiracetam 500 mg/ Sodium (Chloride) 105 mls @ 210 mls/hr IVPB Q12 [facility] Last Admin: 07/06/17 08:30 Dose: 210 mls/hr Insulin Human Lispro (Humalog) 0 units SC ACHS [facility] PRN Reason: Protocol Last Admin: 07/06/17 17:06 Dose: 3 units Levothyroxine Sodium (Synthroid) 50 mcg PO DAILY@0630 [facility] Last Admin: 07/06/17 06:28 Dose: 50 mcg Metoprolol Tartrate (Lopressor) 5 mg IVP Q6 [facility] Last Admin: 07/06/17 17:07 Dose: 5 mg Pantoprazole Sodium (Protonix Inj) 40 mg IVP DAILY [facility] Last Admin: 07/06/17 08:36 Dose: 40 mg Sodium Bicarbonate (Sodium Bicarbonate Tab) 1,300 mg PO Q8 [facility] Last Admin: 07/02/17 16:23 Dose: 1,300 mg Thiamine HCl (Vitamin B1 Tab) 100 mg PO BID [facility] Last Admin: 07/06/17 17:10 Dose: 100 mg - Labs Labs: 07/06/17 05:30 07/06/17 05:30 PT 12.9 Seconds (9.8-13.1) 07/04/17 04:40 INR 1.2 (0.9-1.2) 07/04/17 04:40 APTT 35.9 Seconds (25.6-37.1) 07/04/17 04:40 - Head Exam Head Exam: ATRAUMATIC - Eye Exam Eye Exam: Normal appearance - ENT Exam ENT Exam: Mucous Membranes Dry - Respiratory Exam Respiratory Exam: Decreased Breath Sounds - Cardiovascular Exam Cardiovascular Exam: +S1, +S2 - GI/Abdominal Exam GI & Abdominal Exam: Normal Bowel Sounds Assessment and Plan (1) Thrombocytopenia Assessment & Plan: likely sepsis related will send fibrinogen will need to rule out HIT if plt count declines further tomorrow; heparin Ab and serotonin release assay Status: Acute (2) Anemia Assessment & Plan: w/u sent anemia of chronic disease, renal disease Status: Chronic (3) MGUS (monoclonal gammopathy of unknown significance) Assessment & Plan: by bone marrow biopsy f/u kidney biopsy results Status: Acute
[2017-07-06] MEDS: Albumin Human 25% (12.5 gm/50 ml) IV SCH (21:38)
[2017-07-07] MEDS: Albumin Human 25% (12.5 gm/50 ml) IV SCH ×2 (03:52→21:37)
[2017-07-07] MEDS: Metoprolol 1 mg/ml Inj IVP SCH ×4 (03:54→21:37)
[2017-07-07 05:53] LABS: HEMOGLOBIN 7.6 g/dL (12.0-18.0); MEAN CELL VOLUME 93.7 fl (80.0-94.0); MEAN CORPUSCULAR HEMOGLOBIN 31.5 pg (27.0-31.0); MEAN CORPUSCULAR HGB CONC 33.6 g/dL (33.0-37.0); RBC 2.41 Mil/uL (4.40-5.90); WHITE BLOOD COUNT 5.8 K/uL (4.8-10.8)
[2017-07-07 06:05] LABS: ABG ALLEN TEST YES; ARTERIAL BLOOD GAS HCO3 24.3 mmol/L (21-28); ARTERIAL BLOOD GAS HEMOGLOBIN 7.1 g/dL (11.7-17.4); ARTERIAL BLOOD GAS O2 CONTENT 10.1 ML/dL (15-23); ARTERIAL BLOOD GAS O2 SAT 100.9 % (95-98); ARTERIAL BLOOD GAS PCO2 42 mm/Hg (35-45); ARTERIAL BLOOD GAS PH 7.37 (7.35-7.45); ARTERIAL BLOOD GAS PO2 126 mm/Hg (80-100); ARTERIAL BLOOD GAS TCO2 25.6 mmol/L (22-28)
[2017-07-07 06:07] LABS: ALBUMIN 2.7 g/dL (3.5-5.0); CALCIUM 8.5 mg/dL (8.4-10.2)
[2017-07-07] MEDS: Insulin Lispro (humaLOG) 100 Units/ml Inj SC SCH ×4 (06:38→21:39)
[2017-07-07] MEDS: Levothyroxine 50 MCG TAB PO SCH (06:38)
--- NOTE | 2017-07-07 07:43 | CP.CCUPN ---
CCU Objective - Vital Signs / Intake & Output Vital Signs (Last 4 hours): Vital Signs Temp Pulse Resp BP Pulse Ox 07/07/17 06:00 69 14 144/60 100 07/07/17 04:00 98.1 F 70 16 161/57 H 100 07/07/17 03:54 72 149/56 L Intake and Output (Last 8hrs): Intake & Output 07/06/17 07/07/17 07/07/17 22:59 06:59 14:59 Intake Total 1473 765 Output Total 650 400 Balance 823 365 Intake: IV 8 Intake, Piggyback 400 50 Tube Feeding 315 315 Blood Product 200 Albumin 50 Free Water Flush 500 400 Output: Gastric Amount 50 Stomach 50 Urine 600 400 Urethral (Salazar) 600 400 Other: # Bowel Movements 1 1 - Physical Exam Head: Positive for: Atraumatic, Normocephalic Pupils: Positive for: PERRL Mouth: Positive for: Moist Mucous Membranes Nose (External): Positive for: Lesions (on nose brown scab) Respiratory/Chest: Positive for: Good Air Exchange, Respiratory Distress (mild) , Decreased Breath Sounds (clear to auscultation exccept for right lung base has rales, left lung decreased breath sounds). Negative for: Wheezes, Retracting, Rhonchi Cardiovascular: Positive for: Regular Rate and Rhythm, Murmurs. Negative for: Tachycardic, Bradycardic Abdomen: Positive for: Normal Bowel Sounds. Negative for: Tenderness, Distention, Peritoneal Signs Genitourinary Male: Positive for: Penile Swelling, Testicle Swelling Upper Extremity: Positive for: Edema (bilaterallly, 1+ pitting ) Lower Extremity: Positive for: Edema (trace). Negative for: Tenderness Neurological: Positive for: Other (awake and alert, intubated, following commands) Skin: Positive for: Warm, Dry, Other (gauze on back of left hand) Psychiatric: Positive for: Other (drowsy, arousable ) - Medications Active Medications: Active Medications Generic Name Dose Route Start Last Admin Trade Name Freq PRN Reason Stop Dose Admin Albuterol/Ipratropium 3 ml 06/28/17 16:00 07/06/17 19:38 Duoneb 3 Mg/0.5 Mg (3 Ml) Ud INH 3 ml RQID THOMAS Administration Amlodipine Besylate 10 mg 07/05/17 09:00 07/06/17 08:37 Norvasc PO 10 mg DAILY THOMAS Administration Bacitracin 1 applic 06/27/17 13:00 07/06/17 17:06 Bacitracin Oint TOP 1 applic TID THOMAS Administration Calcium Acetate 2,001 mg 07/05/17 08:30 07/06/17 17:46 Phoslo PO 2,001 mg 0830,1200,1830 THOMAS Administration Dextrose 0 ml 06/22/17 22:36 Dextrose 50% Inj IV STAT PRN Hypoglycemia Protocol Protocol Dextrose 0 gm 06/22/17 22:36 Glutose 15 PO ONCE PRN Hypoglycemia Protocol Protocol Enoxaparin Sodium 30 mg 07/02/17 09:00 07/06/17 08:35 Lovenox SC 30 mg DAILY THOMAS Administration Protocol Epoetin Roel 14,000 unit 07/07/17 09:00 Procrit SC MWF THOMAS Ergocalciferol 1 cap 06/24/17 10:00 07/01/17 09:01 Drisdol 50,000 Intl Units Cap PO 1 cap Q7D THOMAS Administration Glucagon 0 mg 06/22/17 22:36 Glucagen Diagnostic Kit IM STAT PRN Hypoglycemia Protocol Protocol Hydralazine HCl 25 mg 07/02/17 01:00 07/07/17 00:04 Apresoline PO 25 mg Q8 THOMAS Administration Linezolid 600 mg in 300 mls @ 300 mls/hr 06/25/17 21:00 07/06/17 21:18 Zyvox 600mg/300ml D5w IVPB 300 mls/hr Q12 THOMAS Administration Protocol Cefepime HCl 1 gm/ Sodium 100 mls @ 100 mls/hr 06/26/17 09:00 07/06/17 09:03 Chloride IVPB 100 mls/hr DAILY THOMAS Administration Protocol Micafungin Sodium 100 mg/ 100 mls @ 100 mls/hr 07/01/17 13:45 07/06/17 09:43 Sodium Chloride IVPB 100 mls/hr DAILY THOMAS Administration Protocol Levetiracetam 500 mg/ Sodium 105 mls @ 210 mls/hr 07/04/17 21:00 07/06/17 21: 18 Chloride IVPB 210 mls/hr Q12 THOMAS Administration Insulin Human Lispro 0 units 06/23/17 07:30 07/07/17 06:38 Humalog SC 2 units ACHS THOMAS Administration Protocol Levothyroxine Sodium 50 mcg 07/05/17 06:30 07/07/17 06:38 Synthroid PO 50 mcg DAILY@0630 THOMAS Administration Metoprolol Tartrate 5 mg 07/03/17 15:24 07/07/17 03:54 Lopressor IVP 5 mg Q6 THOMAS Administration Pantoprazole Sodium 40 mg 07/04/17 09:00 07/06/17 08:36 Protonix Inj IVP 40 mg DAILY THOMAS Administration Sodium Bicarbonate 1,300 mg 06/30/17 17:00 07/02/17 16:23 Sodium Bicarbonate Tab PO 1,300 mg Q8 THOMAS Administration Thiamine HCl 100 mg 06/24/17 21:30 07/06/17 17:10 Vitamin B1 Tab PO 100 mg BID THOMAS Administration - Patient Studies Lab Studies: Lab Studies 07/07/17 07/07/17 07/07/17 Range/Units 05:49 04:20 04:20 WBC (4.8-10.8) K/uL RBC (4.40-5.90) Mil/uL Hgb (12.0-18.0) g/dL Hct (35.0-51.0) % MCV (80.0-94.0) fl MCH (27.0-31.0) pg MCHC (33.0-37.0) g/dL RDW (11.5-14.5) % Plt Count (130-400) K/uL Neutrophils % (Manual) (42-75) % Lymphocytes % (Manual) (20-50) % Monocytes % (Manual) (0-10) % Eosinophils % (Manual) (0-7) % Basophils % (Manual) (0-2) % Platelet Estimate (NORMAL) Large Platelets Giant Platelets Hypochromasia (manual) Anisocytosis (manual) Ovalocytes Schistocytes Retic Count 0.8 D (0.5-1.5) % pCO2 42 (35-45) mm/Hg pO2 126 H (80-100) mm/Hg HCO3 24.3 (21-28) mmol/L ABG pH 7.37 (7.35-7.45) ABG Total CO2 25.6 (22-28) mmol/L ABG O2 Saturation 100.9 H (95-98) % ABG O2 Content 10.1 L (15-23) ML/dL ABG Base Excess -0.9 (-2.0-3.0) mmol/L ABG Hemoglobin 7.1 L (11.7-17.4) g/dL ABG Carboxyhemoglobin 2.1 H (0.5-1.5) % POC ABG HHb (Measured) -0.9 L (0.0-5.0) % ABG Methemoglobin 0.4 (0.0-3.0) % ABG O2 Capacity 10.0 L (16-24) mL/dL Andry Test Yes A-a O2 Difference 107.0 mm/Hg Hgb O2 Saturation 98.4 H (95.0-98.0) % Vent Mode Prvc/ac Mechanical Rate 14 FiO2 40.0 % Tidal Volume 400 PEEP 5 Sodium 144 (132-148) mmol/l Potassium 3.6 (3.6-5.0) MMOL/L Chloride 110 H (98-107) mmol/L Carbon Dioxide 25 (22-30) mmol/L Anion Gap 13 (10-20) BUN 70 H (9-20) mg/dl Creatinine 3.4 H (0.8-1.5) mg/dl Est GFR ( Amer) 22 Est GFR (Non-Af Amer) 18 POC Glucose (mg/dL) (65-110) mg/dL Random Glucose 200 H (75-110) mg/dL Calcium 8.5 (8.4-10.2) mg/dL Ferritin 187.0 (17.9-464) ng/Ml Total Bilirubin 0.2 (0.2-1.3) mg/dl AST 17 (17-59) U/L ALT 42 (21-72) U/L Alkaline Phosphatase 163 H (38-126) U/L Total Protein 5.6 L (6.3-8.2) G/DL Albumin 2.7 L D (3.5-5.0) g/dL Globulin 2.9 (2.2-3.9) gm/dL Albumin/Globulin Ratio 1.0 (1.0-2.1) Vitamin B12 603 (239-931) pg/mL Blood Type Antibody Screen Crossmatch BBK History Checked 07/07/17 07/07/17 07/06/17 Range/Units 04:20 04:16 22:01 WBC 5.8 (4.8-10.8) K/uL RBC 2.41 L (4.40-5.90) Mil/uL Hgb 7.6 L (12.0-18.0) g/dL Hct 22.6 L (35.0-51.0) % MCV 93.7 (80.0-94.0) fl MCH 31.5 H (27.0-31.0) pg MCHC 33.6 (33.0-37.0) g/dL RDW 16.0 H (11.5-14.5) % Plt Count 75 L (130-400) K/uL Neutrophils % (Manual) (42-75) % Lymphocytes % (Manual) (20-50) % Monocytes % (Manual) (0-10) % Eosinophils % (Manual) (0-7) % Basophils % (Manual) (0-2) % Platelet Estimate (NORMAL) Large Platelets Giant Platelets Hypochromasia (manual) Anisocytosis (manual) Ovalocytes Schistocytes Retic Count (0.5-1.5) % pCO2 (35-45) mm/Hg pO2 (80-100) mm/Hg HCO3 (21-28) mmol/L ABG pH (7.35-7.45) ABG Total CO2 (22-28) mmol/L ABG O2 Saturation (95-98) % ABG O2 Content (15-23) ML/dL ABG Base Excess (-2.0-3.0) mmol/L ABG Hemoglobin (11.7-17.4) g/dL ABG Carboxyhemoglobin (0.5-1.5) % POC ABG HHb (Measured) (0.0-5.0) % ABG Methemoglobin (0.0-3.0) % ABG O2 Capacity (16-24) mL/dL Andry Test A-a O2 Difference mm/Hg Hgb O2 Saturation (95.0-98.0) % Vent Mode Mechanical Rate FiO2 % Tidal Volume PEEP Sodium (132-148) mmol/l Potassium (3.6-5.0) MMOL/L Chloride (98-107) mmol/L Carbon Dioxide (22-30) mmol/L Anion Gap (10-20) BUN (9-20) mg/dl Creatinine (0.8-1.5) mg/dl Est GFR ( Amer) Est GFR (Non-Af Amer) POC Glucose (mg/dL) 183 H 180 H (65-110) mg/dL Random Glucose (75-110) mg/dL Calcium (8.4-10.2) mg/dL Ferritin (17.9-464) ng/Ml Total Bilirubin (0.2-1.3) mg/dl AST (17-59) U/L ALT (21-72) U/L Alkaline Phosphatase (38-126) U/L Total Protein (6.3-8.2) G/DL Albumin (3.5-5.0) g/dL Globulin (2.2-3.9) gm/dL Albumin/Globulin Ratio (1.0-2.1) Vitamin B12 (239-931) pg/mL Blood Type Antibody Screen Crossmatch BBK History Checked 07/06/17 07/06/17 07/06/17 Range/Units 16:03 15:15 11:20 WBC (4.8-10.8) K/uL RBC (4.40-5.90) Mil/uL Hgb (12.0-18.0) g/dL Hct (35.0-51.0) % MCV (80.0-94.0) fl MCH (27.0-31.0) pg MCHC (33.0-37.0) g/dL RDW (11.5-14.5) % Plt Count (130-400) K/uL Neutrophils % (Manual) (42-75) % Lymphocytes % (Manual) (20-50) % Monocytes % (Manual) (0-10) % Eosinophils % (Manual) (0-7) % Basophils % (Manual) (0-2) % Platelet Estimate (NORMAL) Large Platelets Giant Platelets Hypochromasia (manual) Anisocytosis (manual) Ovalocytes Schistocytes Retic Count (0.5-1.5) % pCO2 (35-45) mm/Hg pO2 (80-100) mm/Hg HCO3 (21-28) mmol/L ABG pH (7.35-7.45) ABG Total CO2 (22-28) mmol/L ABG O2 Saturation (95-98) % ABG O2 Content (15-23) ML/dL ABG Base Excess (-2.0-3.0) mmol/L ABG Hemoglobin (11.7-17.4) g/dL ABG Carboxyhemoglobin (0.5-1.5) % POC ABG HHb (Measured) (0.0-5.0) % ABG Methemoglobin (0.0-3.0) % ABG O2 Capacity (16-24) mL/dL Andry Test A-a O2 Difference mm/Hg Hgb O2 Saturation (95.0-98.0) % Vent Mode Mechanical Rate FiO2 % Tidal Volume PEEP Sodium (132-148) mmol/l Potassium (3.6-5.0) MMOL/L Chloride (98-107) mmol/L Carbon Dioxide (22-30) mmol/L Anion Gap (10-20) BUN (9-20) mg/dl Creatinine (0.8-1.5) mg/dl Est GFR ( Amer) Est GFR (Non-Af Amer) POC Glucose (mg/dL) 217 H 211 H (65-110) mg/dL Random Glucose (75-110) mg/dL Calcium (8.4-10.2) mg/dL Ferritin (17.9-464) ng/Ml Total Bilirubin (0.2-1.3) mg/dl AST (17-59) U/L ALT (21-72) U/L Alkaline Phosphatase (38-126) U/L Total Protein (6.3-8.2) G/DL Albumin (3.5-5.0) g/dL Globulin (2.2-3.9) gm/dL Albumin/Globulin Ratio (1.0-2.1) Vitamin B12 (239-931) pg/mL Blood Type A NEGATIVE Antibody Screen Negative Crossmatch See Detail BBK History Checked Patient has bt 07/06/17 07/03/17 Range/Units 05:30 10:10 WBC (4.8-10.8) K/uL RBC (4.40-5.90) Mil/uL Hgb (12.0-18.0) g/dL Hct (35.0-51.0) % MCV (80.0-94.0) fl MCH (27.0-31.0) pg MCHC (33.0-37.0) g/dL RDW (11.5-14.5) % Plt Count (130-400) K/uL Neutrophils % (Manual) 86 H (42-75) % Lymphocytes % (Manual) 5 L (20-50) % Monocytes % (Manual) 6 (0-10) % Eosinophils % (Manual) 1 (0-7) % Basophils % (Manual) 2 (0-2) % Platelet Estimate Decreased L (NORMAL) Large Platelets Present Giant Platelets Present Hypochromasia (manual) Moderate Anisocytosis (manual) Slight Ovalocytes Slight Schistocytes Slight Retic Count (0.5-1.5) % pCO2 (35-45) mm/Hg pO2 (80-100) mm/Hg HCO3 (21-28) mmol/L ABG pH (7.35-7.45) ABG Total CO2 (22-28) mmol/L ABG O2 Saturation (95-98) % ABG O2 Content (15-23) ML/dL ABG Base Excess (-2.0-3.0) mmol/L ABG Hemoglobin (11.7-17.4) g/dL ABG Carboxyhemoglobin (0.5-1.5) % POC ABG HHb (Measured) (0.0-5.0) % ABG Methemoglobin (0.0-3.0) % ABG O2 Capacity (16-24) mL/dL Andry Test A-a O2 Difference mm/Hg Hgb O2 Saturation (95.0-98.0) % Vent Mode Mechanical Rate FiO2 % Tidal Volume PEEP Sodium (132-148) mmol/l Potassium (3.6-5.0) MMOL/L Chloride (98-107) mmol/L Carbon Dioxide (22-30) mmol/L Anion Gap (10-20) BUN (9-20) mg/dl Creatinine (0.8-1.5) mg/dl Est GFR ( Amer) Est GFR (Non-Af Amer) POC Glucose (mg/dL) (65-110) mg/dL Random Glucose (75-110) mg/dL Calcium (8.4-10.2) mg/dL Ferritin (17.9-464) ng/Ml Total Bilirubin (0.2-1.3) mg/dl AST (17-59) U/L ALT (21-72) U/L Alkaline Phosphatase (38-126) U/L Total Protein (6.3-8.2) G/DL Albumin (3.5-5.0) g/dL Globulin (2.2-3.9) gm/dL Albumin/Globulin Ratio (1.0-2.1) Vitamin B12 (239-931) pg/mL Blood Type Antibody Screen Crossmatch See Detail BBK History Checked Laboratory Results - last 24 hr 07/03/17 07/06/17 07/06/17 10:10 05:30 11:20 WBC RBC Hgb Hct MCV MCH MCHC RDW Plt Count Neutrophils % (Manual) 86 H Lymphocytes % (Manual) 5 L Monocytes % (Manual) 6 Eosinophils % (Manual) 1 Basophils % (Manual) 2 Platelet Estimate Decreased L Large Platelets Present Giant Platelets Present Hypochromasia (manual) Moderate Anisocytosis (manual) Slight Ovalocytes Slight Schistocytes Slight Retic Count pCO2 pO2 HCO3 ABG pH ABG Total CO2 ABG O2 Saturation ABG O2 Content ABG Base Excess ABG Hemoglobin ABG Carboxyhemoglobin POC ABG HHb (Measured) ABG Methemoglobin ABG O2 Capacity Andry Test A-a O2 Difference Hgb O2 Saturation Vent Mode Mechanical Rate FiO2 Tidal Volume PEEP Sodium Potassium Chloride Carbon Dioxide Anion Gap BUN Creatinine Est GFR ( Amer) Est GFR (Non-Af Amer) POC Glucose (mg/dL) 211 H Random Glucose Calcium Ferritin Total Bilirubin AST ALT Alkaline Phosphatase Total Protein Albumin Globulin Albumin/Globulin Ratio Vitamin B12 Blood Type Antibody Screen Crossmatch See Detail BBK History Checked 07/06/17 07/06/17 07/06/17 15:15 16:03 22:01 WBC RBC Hgb Hct MCV MCH MCHC RDW Plt Count Neutrophils % (Manual) Lymphocytes % (Manual) Monocytes % (Manual) Eosinophils % (Manual) Basophils % (Manual) Platelet Estimate Large Platelets Giant Platelets Hypochromasia (manual) Anisocytosis (manual) Ovalocytes Schistocytes Retic Count pCO2 pO2 HCO3 ABG pH ABG Total CO2 ABG O2 Saturation ABG O2 Content ABG Base Excess ABG Hemoglobin ABG Carboxyhemoglobin POC ABG HHb (Measured) ABG Methemoglobin ABG O2 Capacity Andry Test A-a O2 Difference Hgb O2 Saturation Vent Mode Mechanical Rate FiO2 Tidal Volume PEEP Sodium Potassium Chloride Carbon Dioxide Anion Gap BUN Creatinine Est GFR ( Amer) Est GFR (Non-Af Amer) POC Glucose (mg/dL) 217 H 180 H Random Glucose Calcium Ferritin Total Bilirubin AST ALT Alkaline Phosphatase Total Protein Albumin Globulin Albumin/Globulin Ratio Vitamin B12 Blood Type A NEGATIVE Antibody Screen Negative Crossmatch See Detail BBK History Checked Patient has bt 07/07/17 07/07/17 07/07/17 04:16 04:20 04:20 WBC 5.8 RBC 2.41 L Hgb 7.6 L Hct 22.6 L MCV 93.7 MCH 31.5 H MCHC 33.6 RDW 16.0 H Plt Count 75 L Neutrophils % (Manual) Lymphocytes % (Manual) Monocytes % (Manual) Eosinophils % (Manual) Basophils % (Manual) Platelet Estimate Large Platelets Giant Platelets Hypochromasia (manual) Anisocytosis (manual) Ovalocytes Schistocytes Retic Count pCO2 pO2 HCO3 ABG pH ABG Total CO2 ABG O2 Saturation ABG O2 Content ABG Base Excess ABG Hemoglobin ABG Carboxyhemoglobin POC ABG HHb (Measured) ABG Methemoglobin ABG O2 Capacity Andry Test A-a O2 Difference Hgb O2 Saturation Vent Mode Mechanical Rate FiO2 Tidal Volume PEEP Sodium 144 Potassium 3.6 Chloride 110 H Carbon Dioxide 25 Anion Gap 13 BUN 70 H Creatinine 3.4 H Est GFR ( Amer) 22 Est GFR (Non-Af Amer) 18 POC Glucose (mg/dL) 183 H Random Glucose 200 H Calcium 8.5 Ferritin 187.0 Total Bilirubin 0.2 AST 17 ALT 42 Alkaline Phosphatase 163 H Total Protein 5.6 L Albumin 2.7 L D Globulin 2.9 Albumin/Globulin Ratio 1.0 Vitamin B12 603 Blood Type Antibody Screen Crossmatch BBK History Checked 07/07/17 07/07/17 04:20 05:49 WBC RBC Hgb Hct MCV MCH MCHC RDW Plt Count Neutrophils % (Manual) Lymphocytes % (Manual) Monocytes % (Manual) Eosinophils % (Manual) Basophils % (Manual) Platelet Estimate Large Platelets Giant Platelets Hypochromasia (manual) Anisocytosis (manual) Ovalocytes Schistocytes Retic Count 0.8 D pCO2 42 pO2 126 H HCO3 24.3 ABG pH 7.37 ABG Total CO2 25.6 ABG O2 Saturation 100.9 H ABG O2 Content 10.1 L ABG Base Excess -0.9 ABG Hemoglobin 7.1 L ABG Carboxyhemoglobin 2.1 H POC ABG HHb (Measured) -0.9 L ABG Methemoglobin 0.4 ABG O2 Capacity 10.0 L Andry Test Yes A-a O2 Difference 107.0 Hgb O2 Saturation 98.4 H Vent Mode Prvc/ac Mechanical Rate 14 FiO2 40.0 Tidal Volume 400 PEEP 5 Sodium Potassium Chloride Carbon Dioxide Anion Gap BUN Creatinine Est GFR ( Amer) Est GFR (Non-Af Amer) POC Glucose (mg/dL) Random Glucose Calcium Ferritin Total Bilirubin AST ALT Alkaline Phosphatase Total Protein Albumin Globulin Albumin/Globulin Ratio Vitamin B12 Blood Type Antibody Screen Crossmatch BBK History Checked Fingerstick Blood Sugar Results: 183
[2017-07-07] MEDS: Albuterol-Ipratrop 3 mg / 0.5 (3 ml) UD INH SCH ×4 (08:00→19:20)
--- NOTE | 2017-07-07 08:29 | PN ---
DATE: 07/06/2017 CRITICAL CARE PROGRESS NOTE LOCATION: The patient is in ICU, bed 425. SUBJECTIVE: The patient is seen and evaluated at the bed side overnight, remains on mechanical ventilation. Respiratory rate 14, tidal volume 400, FiO2 40%, PEEP of 5, observed rate 14, observed tidal volume 515, minute ventilation 9.2 liters, saturating 100%, peak airway pressure 21, end-tidal CO2 29. Patient is off sedation. PHYSICAL EXAMINATION: GENERAL: Alert, awake, opens eyes, able to lift left hand off bed. No distress noted. VITAL SIGNS: Temperature 97.8, heart rate 70, blood pressure 151/58, mean arterial pressure 89, saturation 100%. Intake 4142, output 1100. Positive balance 3042. Weight 148 pounds. HEAD, EYES, EAR, NOSE AND THROAT: Pupils are reactive. Conjunctivae pale. Sclerae anicteric. NECK: Supple. Endotracheal tube without secretions. CHEST: Bilateral breath sounds diminished intensity. HEART: Rhythm regular. S1, S2 normal. No audible murmur. ABDOMEN: Bowel sounds present. Soft. EXTREMITIES: Trace edema. SKIN: Without rash. DP palpable. NEUROLOGIC: Reduced range for motion on the right arm, moves left. CURRENT MEDICATIONS: Include DuoNeb 3 mL via nebulizer q.i.d., amlodipine 10 mg daily. bacitracin ointment one application topically three times daily, PhosLo 2001 mg p.o. three times a day, cefepime 1 g IV daily, dextrose 15, Lovenox 30 subcu daily, Procrit 14,000 units subcu three times a week, ergocalciferol 1 capsule once a week, Humalog 0 units subcu a.c. h.s., levetiracetam/Keppra 500 mg IV q.12, Zyvox 600 mg IV q.12., metoprolol 5 mg IV q.6, micafungin 100 mg IV daily, Protonix 40 IV daily, thiamine 100 mg twice daily. LABORATORY DATA: WBC 8.8, hemoglobin 6.4, hematocrit 19.5, platelet count 63, neutrophils 84.6, lymphocytes 9.1, monocytes 3.6. PT 12.9, INR 1.2, PTT 35.9. ABG, pH 7.36, pCO2 45, pO2 120, oxygen saturation 98.2, on AC 40, 400, 40%. PEEP of 5. SMA-7: Sodium 148, potassium 3.6, chloride 113, CO2 26, blood urea nitrogen 78 and creatinine 3.6, random glucose 200, calcium 8.2. Total bilirubin 0.1, AST 29, ALT 43, alkaline phosphatase 171, total protein 4.9, albumin 2.2. Fluid rbc 247, total cell count of 100. Fluid neutrophils 38, lymphocytes 52, fluid total protein less than 2, fluid LDH 323. Toxicology negative. Immunology, thyroglobulin antibody less than 1. Urine culture, yeast positive. Sputum culture, yeast positive. Chest x-ray , bilateral effusions and atelectasis of the lung bases. Mild increase in atelectasis at the right lung base. Brain MRI, moderate diffuse confluent chronic white matter, ischemic changes with a scattered more discrete chronic appearing lacunar type infarcts scattered about the deep and subcortical white matter of both cerebral hemispheres, mild diffuse prolonged T2 signal changes within the dali that may represent chronic ischemic as well, suspect a few scattered chronic bilateral basal nuclear lacunar type infarct. EEG, abnormal diffuse slowing suggestive of diffuse abnormality of the brain. This finding is nonspecific consistent with a diffuse multifocal abnormality of the brain. IMPRESSION: 1. Neurologic: The patient is currently alert, able to follow simple commands. 2. Pulmonary: Failed extubation, currently comfortable. Spontaneous breathing trial today. Continue albuterol inhalation q.i.d. 3. Cardiac: Hypertension. Continue amlodipine 10 mg daily. 4. Infectious Disease: Suspected pneumonia with bilateral pleural effusion, atelectasis, lung nodule noted in the right lung, status post thoracentesis, fluid consistent with transudate. 5. Renal: Acute on chronic renal insufficiency, stage IIIB. History of for diabetes and hypertension status post renal biopsy consistent with diabetic nephropathy. 6. Hematology: Anemia, chronic, seen by Dr. Iraheta, recommended transfusion of 1 unit of packed red blood cells, consent obtained from 2 physicians to administer packed red blood cell product. 7. Endocrine: Stable. 8. Gastrointestinal: Continue feeding as tolerated. Discussed with renal consult, albumin infusion ordered to increase oncotic pressure and reduce fluid retention. Allen Llanos MD [facility] # [id number]
--- NOTE | 2017-07-07 08:57 | PN ---
CRITICAL CARE PROGRESS NOTE LOCATION: Patient in ICU, bed 425. TIME SPENT: 35 minutes. SUBJECTIVE: The patient is seen and evaluated at the bedside. A 66-year-old male, homeless, with history of diabetes mellitus type 2, hypertension, nephrotic syndrome, chronic kidney disease stage IIIB, monoclonal gammopathy, chronic anemia with recurrent left pleural effusion, status post thoracentesis, reportedly with transudative effusion, admitted with hypothermia, sepsis. Patient intubated, extubated, re-intubated in less than 48 hours. Noted to be hypoxic and bradycardia status post cardiopulmonary resuscitation for a week prior to this admission. The patient remains intubated on mechanical ventilation on AC/PRVC, rate of 14, tidal volume of 400, FiO2 of 50%, PEEP of 5, observed rate 14, tidal volume 400, saturation 100%, peak airway pressure 18, mean airway pressure 10, end-tidal CO2 of 30. Remained normotensive, afebrile. Telemetry sinus rate, off sedation. This morning alert, awake, able to follow simple commands, lifts left arm off the bed on verbal request. PHYSICAL EXAMINATION: CURRENT VITAL SIGNS: Temperature 99.5, heart rate 70 regular, blood pressure 163/57, mean arterial pressure of 92, intake 2265, output 950. Positive balance of 1315 mL. Weight 150 pounds. HEAD, EYES, EARS, NOSE AND THROAT: Pupils are reactive. Conjunctivae pale. Sclerae white. CHEST: Reduced breath sounds. HEART: Rhythm regular. S1, S2 normal. No audible murmur. ABDOMEN: Bowel sounds present, soft. EXTREMITIES: Pedal edema. NEUROLOGIC: Awake, alert, follows commands appropriate. SKIN: Without rash. CURRENT MEDICATIONS: Include thiamine 100 mg p.o. twice daily, sodium bicarbonate mg q.8h., Protonix 40 IV daily, micafungin 100 mg daily, metoprolol 5 mg IV q.6h., Zyvox 600 mg q.12h., levothyroxine 50 mcg daily, Keppra 500 mg IV q.12h., Accu-Chek with regular insulin coverage, hydralazine 25 mg q.8h., amlodipine 10 mg daily, DuoNeb 3 ml via nebulizer q.6h. LABORATORY DATA: WBC 8.3, hemoglobin 7.3, hematocrit 21.9, platelet count 76, neutrophils 79.3, lymphocytes 13.8, monocytes of 4.6. PT 12.9, INR 1.2, PTT 35.9. ABG: pH 7.40, pCO2 of 42, pO2 of 179, oxygen saturation 100.5% on AC 40, 450%, PEEP of 5. SMA-7: Sodium 151, potassium 3.7, chloride 116, CO2 of 25, blood urea nitrogen 79, creatinine 4.1, random glucose 146, calcium 8.7, total bilirubin 0.2, AST 28, ALT 46, alkaline phosphatase 199. Urinalysis, blood large, nitrite negative. Pleural fluid: WBC 26, RBC 247, total cell count of 100, neutrophils 38, lymphocytes 52, fluid total protein less than 2, ratio less than 0.5. LDH 322 with ratio less than 0.6. Urine drug screen negative. Serum immunofixation, faint IgG lambda monoclonal protein band present, monoclonal IgA band without corresponding light chain present. IMPRESSION: 1. Neurology: Status post cardiopulmonary resuscitation with suspected hypoxic encephalopathy, post extubation, bradycardia, unresponsiveness, re-intubated, currently off the sedation, more wakeful, able to follow simple commands. 2. Pulmonary: Respiratory failure, history of bilateral pleural effusion, status post thoracentesis, etiology unclear. Study consistent with transudative effusion. History of monoclonal gammopathy associated with diabetes/nephrotic syndrome. 3. Cardiac: History of hypertension, currently controlled. 4. Renal: Chronic kidney disease stage III, nephrotic syndrome. Appreciate a discussion with renal consult. Closely monitor renal function, noted to be worsening secondary to recurrent insult from hypoperfusion related to cardiorespiratory arrest. 5. Endocrine: No acute issues. 6. Hematology: Anemia, probably chronic associated with thrombocytopenia. No history of alcoholism or liver disease. May benefit from hematology evaluation to rule out myelodysplastic syndrome. We will discuss with primary team. 7. Infectious disease: Currently on Zyvox and cefepime and micafungin for sepsis and also due to fungemia. Continue deep venous thrombosis and gastrointestinal prophylaxis. Continue to monitor the respiratory status. Keep off the sedation. Spontaneous breathing trial; if stable, attempt to extubate in the morning. Allen Llanos MD
--- NOTE | 2017-07-07 09:04 | CP.PCM.PN ---
Subjective - Date & Time of Evaluation Date of Evaluation: 07/07/17 Time of Evaluation: 07:00 - Subjective Subjective: Patient seen and examined bedside in ICU, intubated, arousable, awake, moving hands and feet. on ventilator AC RR 14, peep 5, FIO2 40. [place] with yellow urine 200 ml. Objective - Vital Signs/Intake and Output Vital Signs (last 24 hours): Temp Pulse Resp BP Pulse Ox 97.6 F 67 15 151/58 H 100 07/07/17 08:00 07/07/17 08:00 07/07/17 08:00 07/07/17 08:00 07/07/17 08:00 Intake and Output: 07/07/17 07/07/17 06:59 18:59 Intake Total 1750 200 Output Total 400 Balance 1350 200 - Medications Medications: Current Medications Albuterol/Ipratropium (Duoneb 3 Mg/0.5 Mg (3 Ml) Ud) 3 ml INH RQID [facility] Last Admin: 07/07/17 08:00 Dose: 3 ml Amlodipine Besylate (Norvasc) 10 mg PO DAILY [facility] Last Admin: 07/06/17 08:37 Dose: 10 mg Bacitracin (Bacitracin Oint) 1 applic TOP TID [facility] Last Admin: 07/06/17 17:06 Dose: 1 applic Calcium Acetate (Phoslo) 2,001 mg PO 0830,1200,1830 [facility] Last Admin: 07/06/17 17:46 Dose: 2,001 mg Dextrose (Dextrose 50% Inj) 0 ml IV STAT PRN; Protocol PRN Reason: Hypoglycemia Protocol Dextrose (Glutose 15) 0 gm PO ONCE PRN; Protocol PRN Reason: Hypoglycemia Protocol Enoxaparin Sodium (Lovenox) 30 mg SC DAILY [facility] PRN Reason: Protocol Last Admin: 07/06/17 08:35 Dose: 30 mg Epoetin Roel (Procrit) 14,000 unit SC MWF [facility] Ergocalciferol (Drisdol 50,000 Intl Units Cap) 1 cap PO Q7D [facility] Last Admin: 07/01/17 09:01 Dose: 1 cap Glucagon (Glucagen Diagnostic Kit) 0 mg IM STAT PRN; Protocol PRN Reason: Hypoglycemia Protocol Hydralazine HCl (Apresoline) 25 mg PO Q8 [facility] Last Admin: 07/07/17 00:04 Dose: 25 mg Linezolid (Zyvox 600mg/300ml D5w) 600 mg in 300 mls @ 300 mls/hr IVPB Q12 [facility] PRN Reason: Protocol Last Admin: 07/06/17 21:18 Dose: 300 mls/hr Cefepime HCl 1 gm/ Sodium (Chloride) 100 mls @ 100 mls/hr IVPB DAILY [facility] PRN Reason: Protocol Last Admin: 07/06/17 09:03 Dose: 100 mls/hr Micafungin Sodium 100 mg/ (Sodium Chloride) 100 mls @ 100 mls/hr IVPB DAILY [facility] PRN Reason: Protocol Last Admin: 07/06/17 09:43 Dose: 100 mls/hr Levetiracetam 500 mg/ Sodium (Chloride) 105 mls @ 210 mls/hr IVPB Q12 [facility] Last Admin: 07/06/17 21:18 Dose: 210 mls/hr Insulin Human Lispro (Humalog) 0 units SC ACHS [facility] PRN Reason: Protocol Last Admin: 07/07/17 06:38 Dose: 2 units Levothyroxine Sodium (Synthroid) 50 mcg PO DAILY@0630 [facility] Last Admin: 07/07/17 06:38 Dose: 50 mcg Metoprolol Tartrate (Lopressor) 5 mg IVP Q6 [facility] Last Admin: 07/07/17 03:54 Dose: 5 mg Pantoprazole Sodium (Protonix Inj) 40 mg IVP DAILY [facility] Last Admin: 07/06/17 08:36 Dose: 40 mg Sodium Bicarbonate (Sodium Bicarbonate Tab) 1,300 mg PO Q8 [facility] Last Admin: 07/02/17 16:23 Dose: 1,300 mg Thiamine HCl (Vitamin B1 Tab) 100 mg PO BID [facility] Last Admin: 07/06/17 17:10 Dose: 100 mg - Labs Labs: 07/07/17 04:20 07/07/17 04:20 PT 12.9 Seconds (9.8-13.1) 07/04/17 04:40 INR 1.2 (0.9-1.2) 07/04/17 04:40 APTT 35.9 Seconds (25.6-37.1) 07/04/17 04:40 - Constitutional Appears: In Acute Distress - Head Exam Head Exam: ATRAUMATIC, NORMOCEPHALIC - Eye Exam Eye Exam: Normal appearance - Respiratory Exam Respiratory Exam: Decreased Breath Sounds. absent: Rales, Rhonchi, Wheezes Additional comments: diminished breath sound right lung base - Cardiovascular Exam Cardiovascular Exam: REGULAR RHYTHM, +S1, +S2 - GI/Abdominal Exam GI & Abdominal Exam: Soft, Normal Bowel Sounds. absent: Tenderness - Extremities Exam Extremities Exam: Normal Inspection. absent: Pedal Edema - Neurological Exam Neurological Exam: Awake Additional comments: patient intubated awake, able to move hands and feet. - Skin Additional comments: nose abrasion with scab formation. left hand abrasion with scab formation. 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 Patient is DNR status. Bad prognosis. Assessment/Plan 1) Acute Respiratory Failure -improved -on ventilator day #4 -SBT as tolerated, and extubate if indicated -sputum fungus cx: preliminary neg. on mycamine 2) Recurrent Left Pleural effusion, Transudate -Pulmonology consult appreciated: no benefit for bronchoscopy or lung biopsy -IR consult consulted: right pleural effusion resolved. will consider left side thoracentesis if ICU Dr suggests -quantiferon gold:positive then indeterminate 3) HAP -improved -c/w cefepime day # 12, linezolid day # 13 -Procalcitonin 14.4 trending down 7.3 4) DM nephropathy -Kidney biopsy 06/05/17: Diabetic nephropathy, nodular glomerulosclerosis, associated with aprox 40 % globally sclerosed glomeruli( calss III), 10-15 % segmentally sclerosed glomeruli, docal moderate interstitial fibrosis and mod vascular sclerosis, including marked hyaline arteriolosclerosis.NO EVIDENCE OF MONOCLONAL LIGHT OR HEAVY CHAIN-RELATED RENAL DISEASE. -Nephro consult appreciated -Renal duplex: no renal vein thrombosis 5) CHINTAN on CKD stage 4 w/ new onset of ATN - Nephorologist consult appreciated -hold Lasix DC 6) Thrombocytopenia -HemOnc consult appreciated -trending up 75 today 7) Hypothyroidism, subclinical -Econdrinologist consult appreciated 8) Hyperprolactinemia -Prolactin trending down -Endocrionologist consult suggested -MRI brain:no inracraneal hemorrhage, chronic lacunar infarct b/l cerebral, changes in dali haydee represent chronic ischemia or sequela of osmotic myelonilolysis not excluded.chronic b/l basal nuclei lacunar infarcts, mastoid ppasification secondary to intubation 9) Pressure Ulcer and TDI -Sacral region stage 2 -wound care consult appreciated 10) Acute diastolic CHF -Echo 05/31/17 normal EF 60-65% -c/w labetalol, hydralazine 11) DM 2 -SSI 12) HTN - Hydralazine 25 Q8 reduced by trademark affixer. To keep systolic BP 150 - Labetalol 5m IV PRN 13) Anemia -secondary to CKD -s/p transfucion 1 u pRBC -Hgb 7.6 today -C/W procrit 14) DVT prophylaxis -Lovenox 30 mg sc (renal dose) 15) GI prophylaxis -Pantoprazol 40 mg IV
[2017-07-07] MEDS: Bacitracin OINT 15GM TOP SCH ×3 (09:07→17:57)
[2017-07-07] MEDS: levETIRAcetam 500 MG in Sodium Chloride 0.9% 100 ML IVPB SCH ×2 (09:08→20:04)
[2017-07-07] MEDS: Enoxaparin 30 mg Syringe SC SCH (09:10)
[2017-07-07] MEDS: Cefepime 1 GM in Sodium Chloride 0.9% 100 ML IVPB SCH (09:11)
--- NOTE | 2017-07-07 09:11 | RAD ---
HISTORY: ETT placement COMPARISON: Portable chest 07/06/2017. FINDINGS: Endotracheal and nasogastric tubes are unchanged in position. LUNGS: Diminishing right basilar atelectasis or infiltrate. Dense atelectasis or possible infiltrate is unchanged at the left base. PLEURA: Moderate left pleural effusions unchanged with none on the right. No pneumothorax bilaterally. CARDIOVASCULAR: The visualized cardiac silhouette is stable with no definite pulmonary venous congestion pattern appreciated at this time. OSSEOUS STRUCTURES: No significant abnormalities. VISUALIZED UPPER ABDOMEN: Normal. OTHER FINDINGS: None. IMPRESSION: Moderate left pleural effusion persists with underlying atelectasis or infiltrate not excluded the left base. Limited patchy density remains in the right base with no right pleural effusion identified. Continued clinical and radiographic monitor advised.
[2017-07-07] MEDS: Linezolid 600 mg in D5W 300 ml 600 MG/300 ML BAG IVPB SCH ×2 (09:12→20:04)
--- NOTE | 2017-07-07 09:12 | PN ---
DATE: ENDO FOLLOWUP NOTE SUBJECTIVE: This is a 66-year-old male with a recent admission for acute respiratory failure and subsequent intubation with underlying pleural effusion, has subsequently been extubated and being followed up closely for metabolic management. He also had abnormal thyroid function studies as noted. He has remained clinically euthyroid and biochemically, has evidence of the so-called early hypothyroid condition with superimposed acute sick euthyroid syndrome noted. Latest studies showed a with a free T4 of 0.70 and . His repeat prolactin level was 52.7. The latest chemistry shows a BUN of 81, sodium 148, potassium 3.7, chloride 114, CO2 of 27, glucose 112, and creatinine 4.3. At this time, we will start him on , levothyroxine mcg - given once daily before breakfast as ordered. We will titrate incrementally as indicated to optimize metabolic control. thyroid antibodies and antigen, which will confirm and/or indicate the presence of underlying immunity. We will follow and advise accordingly. Bettina Mann MD
[2017-07-07] MEDS: Epoetin Alfa 20000 UNIT/ML Inj SC SCH (09:14)
--- NOTE | 2017-07-07 09:40 | PN ---
DATE: ENDOCRINOLOGY FOLLOWUP NOTE LOCATION: ICU, room 425. SUBJECTIVE: This is a 66-year-old male presenting here with acute respiratory failure and underlying bilateral pleural effusion, also marked hypothermia and has improved clinically and hemodynamically as noted thereof. He also remains clinically euthyroid. Although biochemically he does have evidence of early hypothyroxinemia with improving TSH values, ranging from 7.14 to 5.04 as noted. His free INCOMPLETE DICTATION Bettina Mann MD
--- NOTE | 2017-07-07 10:25 | CP.PCM.PN ---
Subjective - Date & Time of Evaluation Date of Evaluation: 07/07/17 Time of Evaluation: 10:20 - Subjective Subjective: Mr. Durand was seen and examined at the bedside in ICU. He remains on mechanical ventilation, awake, alert and not fighting the ventilation. He also has OGT with feeding. He is tolerating it well. He denies any headache or dizziness. He is able to follow simple commands. He remains with bilateral upper extremities restraints for patient safety. The left upper extremity positive for edema and with superficial skin tear noted in his left hand. He also has bilateral lower extremities SCD's. The patient remains on airborne precaution to rule out TB. There was no untoward events overnight. Objective - Vital Signs/Intake and Output Vital Signs (last 24 hours): Temp Pulse Resp BP Pulse Ox 97.6 F 75 15 158/60 H 100 07/07/17 08:00 07/07/17 09:13 07/07/17 08:00 07/07/17 09:13 07/07/17 08:00 Intake and Output: 07/07/17 07/07/17 06:59 18:59 Intake Total 1750 700 Output Total 400 Balance 1350 700 - Medications Medications: Current Medications Albuterol/Ipratropium (Duoneb 3 Mg/0.5 Mg (3 Ml) Ud) 3 ml INH RQID [facility] Last Admin: 07/07/17 08:00 Dose: 3 ml Amlodipine Besylate (Norvasc) 10 mg PO DAILY [facility] Last Admin: 07/07/17 09:13 Dose: 10 mg Bacitracin (Bacitracin Oint) 1 applic TOP TID [facility] Last Admin: 07/07/17 09:07 Dose: 1 applic Calcium Acetate (Phoslo) 2,001 mg PO 0830,1200,1830 [facility] Last Admin: 07/07/17 09:13 Dose: 2,001 mg Dextrose (Dextrose 50% Inj) 0 ml IV STAT PRN; Protocol PRN Reason: Hypoglycemia Protocol Dextrose (Glutose 15) 0 gm PO ONCE PRN; Protocol PRN Reason: Hypoglycemia Protocol Enoxaparin Sodium (Lovenox) 30 mg SC DAILY [facility] PRN Reason: Protocol Last Admin: 07/07/17 09:10 Dose: 30 mg Epoetin Roel (Procrit) 14,000 unit SC MWF [facility] Last Admin: 07/07/17 09:14 Dose: 14,000 unit Ergocalciferol (Drisdol 50,000 Intl Units Cap) 1 cap PO Q7D [facility] Last Admin: 07/01/17 09:01 Dose: 1 cap Glucagon (Glucagen Diagnostic Kit) 0 mg IM STAT PRN; Protocol PRN Reason: Hypoglycemia Protocol Hydralazine HCl (Apresoline) 25 mg PO Q8 [facility] Last Admin: 07/07/17 09:06 Dose: 25 mg Linezolid (Zyvox 600mg/300ml D5w) 600 mg in 300 mls @ 300 mls/hr IVPB Q12 [facility] PRN Reason: Protocol Last Admin: 07/07/17 09:12 Dose: 300 mls/hr Cefepime HCl 1 gm/ Sodium (Chloride) 100 mls @ 100 mls/hr IVPB DAILY [facility] PRN Reason: Protocol Last Admin: 07/07/17 09:11 Dose: 100 mls/hr Micafungin Sodium 100 mg/ (Sodium Chloride) 100 mls @ 100 mls/hr IVPB DAILY [facility] PRN Reason: Protocol Last Admin: 07/06/17 09:43 Dose: 100 mls/hr Levetiracetam 500 mg/ Sodium (Chloride) 105 mls @ 210 mls/hr IVPB Q12 [facility] Last Admin: 07/07/17 09:08 Dose: 210 mls/hr Insulin Human Lispro (Humalog) 0 units SC ACHS [facility] PRN Reason: Protocol Last Admin: 07/07/17 06:38 Dose: 2 units Levothyroxine Sodium (Synthroid) 50 mcg PO DAILY@0630 [facility] Last Admin: 07/07/17 06:38 Dose: 50 mcg Metoprolol Tartrate (Lopressor) 5 mg IVP Q6 [facility] Last Admin: 07/07/17 09:10 Dose: 5 mg Pantoprazole Sodium (Protonix Inj) 40 mg IVP DAILY [facility] Last Admin: 07/07/17 09:15 Dose: 40 mg Sodium Bicarbonate (Sodium Bicarbonate Tab) 1,300 mg PO Q8 [facility] Last Admin: 07/02/17 16:23 Dose: 1,300 mg Thiamine HCl (Vitamin B1 Tab) 100 mg PO BID [facility] Last Admin: 07/07/17 09:15 Dose: 100 mg - Labs Labs: 07/07/17 04:20 07/07/17 04:20 PT 12.9 Seconds (9.8-13.1) 07/04/17 04:40 INR 1.2 (0.9-1.2) 07/04/17 04:40 APTT 35.9 Seconds (25.6-37.1) 07/04/17 04:40 - Constitutional Appears: No Acute Distress - Head Exam Head Exam: NORMAL INSPECTION - Neurological Exam Neurological Exam: Alert, Awake Neuro motor strength exam: Left Upper Extremity: 3, Right Upper Extremity: 3, Left Lower Extremity: 3, Right Lower Extremity: 3 Additional comments: He is able to follow simple commands.Sensation remains intact. Assessment and Plan (1) Altered mental status Assessment & Plan: Case discussed with Dr. Das, continue all current medical regimen. There is no new recommendations from neurology. Status: Acute
--- NOTE | 2017-07-07 11:21 | CP.CCUPN ---
Addendum entered and electronically signed by Layo Curiel DO 07/07/17 14:40 : Pt. re-evaluated at bedside. Opening eyes spontaneously able to follow commands. Appears comfortable not in distress still intubated without sedation. Vent settings adjusted. Current vent settings Mode-CPAP, PS-12, PEEP-5, FIO2-40 % Will consider extubation and placement of chest tube with or without pelurodysis tomorrow. Original Note: <Layo Curiel - Last Filed: 07/07/17 12:06> CCU Subjective - Physician Review Subjective (Free Text): 07/07/17 11:22 Pt. seen at bedside currently intubated on mechanical ventilation, not on sedation, but responsive to pain. Overnight events reviewed. 07/07/17 11:24 CCU Objective - Vital Signs / Intake & Output Vital Signs (Last 4 hours): Vital Signs Temp Pulse Resp BP Pulse Ox 07/07/17 09:13 75 158/60 H 07/07/17 09:10 73 158/60 H 07/07/17 09:06 75 158/60 H 07/07/17 08:00 97.6 F 67 15 151/58 H 100 Intake and Output (Last 8hrs): Intake & Output 07/06/17 07/07/17 07/07/17 22:59 06:59 14:59 Intake Total 1473 765 700 Output Total 650 400 Balance 823 365 700 Weight 148 lb Intake: IV 8 Intake, Piggyback 400 50 500 Tube Feeding 315 315 200 Blood Product 200 Albumin 50 Free Water Flush 500 400 Output: Gastric Amount 50 Stomach 50 Urine 600 400 Urethral (Salazar) 600 400 Other: # Bowel Movements 1 1 - Physical Exam Head: Positive for: Atraumatic, Normocephalic Mouth: Positive for: Moist Mucous Membranes Nose (External): Positive for: Abrasion (Nasal Abrasion) Respiratory/Chest: Positive for: Good Air Exchange (on mechancal ventilation) Cardiovascular: Positive for: Regular Rate and Rhythm. Negative for: Tachycardic, Bradycardic Abdomen: Negative for: Tenderness, Distention Genitourinary Male: Positive for: Penile Swelling, Testicle Swelling Lower Extremity: Positive for: Edema (Bilateral trace edema ). Negative for: Tenderness Skin: Positive for: Warm, Dry Psychiatric: Positive for: Other (lethargic unable to assess ) - Medications Active Medications: Active Medications Generic Name Dose Route Start Last Admin Trade Name Freq PRN Reason Stop Dose Admin Albuterol/Ipratropium 3 ml 06/28/17 16:00 07/07/17 08:00 Duoneb 3 Mg/0.5 Mg (3 Ml) Ud INH 3 ml RQID THOMAS Administration Amlodipine Besylate 10 mg 07/05/17 09:00 07/07/17 09:13 Norvasc PO 10 mg DAILY THOMAS Administration Bacitracin 1 applic 06/27/17 13:00 07/07/17 09:07 Bacitracin Oint TOP 1 applic TID THOMAS Administration Calcium Acetate 2,001 mg 07/05/17 08:30 07/07/17 09:13 Phoslo PO 2,001 mg 0830,1200,1830 THOMAS Administration Dextrose 0 ml 06/22/17 22:36 Dextrose 50% Inj IV STAT PRN Hypoglycemia Protocol Protocol Dextrose 0 gm 06/22/17 22:36 Glutose 15 PO ONCE PRN Hypoglycemia Protocol Protocol Enoxaparin Sodium 30 mg 07/02/17 09:00 07/07/17 09:10 Lovenox SC 30 mg DAILY THOMAS Administration Protocol Epoetin Roel 14,000 unit 07/07/17 09:00 07/07/17 09:14 Procrit SC 14,000 unit MWF THOMAS Administration Ergocalciferol 1 cap 06/24/17 10:00 07/01/17 09:01 Drisdol 50,000 Intl Units Cap PO 1 cap Q7D THOMAS Administration Glucagon 0 mg 06/22/17 22:36 Glucagen Diagnostic Kit IM STAT PRN Hypoglycemia Protocol Protocol Hydralazine HCl 25 mg 07/02/17 01:00 07/07/17 09:06 Apresoline PO 25 mg Q8 THOMAS Administration Linezolid 600 mg in 300 mls @ 300 mls/hr 06/25/17 21:00 07/07/17 09:12 Zyvox 600mg/300ml D5w IVPB 300 mls/hr Q12 THOMAS Administration Protocol Cefepime HCl 1 gm/ Sodium 100 mls @ 100 mls/hr 06/26/17 09:00 07/07/17 09:11 Chloride IVPB 100 mls/hr DAILY THOMAS Administration Protocol Micafungin Sodium 100 mg/ 100 mls @ 100 mls/hr 07/01/17 13:45 07/06/17 09:43 Sodium Chloride IVPB 100 mls/hr DAILY THOMAS Administration Protocol Levetiracetam 500 mg/ Sodium 105 mls @ 210 mls/hr 07/04/17 21:00 07/07/17 09: 08 Chloride IVPB 210 mls/hr Q12 THOMAS Administration Insulin Human Lispro 0 units 06/23/17 07:30 07/07/17 06:38 Humalog SC 2 units ACHS THOMAS Administration Protocol Levothyroxine Sodium 50 mcg 07/05/17 06:30 07/07/17 06:38 Synthroid PO 50 mcg DAILY@0630 THOMAS Administration Metoprolol Tartrate 5 mg 07/03/17 15:24 07/07/17 09:10 Lopressor IVP 5 mg Q6 THOMAS Administration Pantoprazole Sodium 40 mg 07/04/17 09:00 07/07/17 09:15 Protonix Inj IVP 40 mg DAILY THOMAS Administration Sodium Bicarbonate 1,300 mg 06/30/17 17:00 07/02/17 16:23 Sodium Bicarbonate Tab PO 1,300 mg Q8 THOMAS Administration Thiamine HCl 100 mg 06/24/17 21:30 07/07/17 09:15 Vitamin B1 Tab PO 100 mg BID THOMAS Administration - Patient Studies Lab Studies: Lab Studies 07/07/17 07/07/17 07/07/17 Range/Units 05:49 04:20 04:20 WBC (4.8-10.8) K/uL RBC (4.40-5.90) Mil/uL Hgb (12.0-18.0) g/dL Hct (35.0-51.0) % MCV (80.0-94.0) fl MCH (27.0-31.0) pg MCHC (33.0-37.0) g/dL RDW (11.5-14.5) % Plt Count (130-400) K/uL Neutrophils % (Manual) (42-75) % Lymphocytes % (Manual) (20-50) % Monocytes % (Manual) (0-10) % Eosinophils % (Manual) (0-7) % Basophils % (Manual) (0-2) % Platelet Estimate (NORMAL) Large Platelets Giant Platelets Hypochromasia (manual) Anisocytosis (manual) Ovalocytes Schistocytes Retic Count 0.8 D (0.5-1.5) % pCO2 42 (35-45) mm/Hg pO2 126 H (80-100) mm/Hg HCO3 24.3 (21-28) mmol/L ABG pH 7.37 (7.35-7.45) ABG Total CO2 25.6 (22-28) mmol/L ABG O2 Saturation 100.9 H (95-98) % ABG O2 Content 10.1 L (15-23) ML/dL ABG Base Excess -0.9 (-2.0-3.0) mmol/L ABG Hemoglobin 7.1 L (11.7-17.4) g/dL ABG Carboxyhemoglobin 2.1 H (0.5-1.5) % POC ABG HHb (Measured) -0.9 L (0.0-5.0) % ABG Methemoglobin 0.4 (0.0-3.0) % ABG O2 Capacity 10.0 L (16-24) mL/dL Andry Test Yes A-a O2 Difference 107.0 mm/Hg Hgb O2 Saturation 98.4 H (95.0-98.0) % Vent Mode Prvc/ac Mechanical Rate 14 FiO2 40.0 % Tidal Volume 400 PEEP 5 Sodium 144 (132-148) mmol/l Potassium 3.6 (3.6-5.0) MMOL/L Chloride 110 H (98-107) mmol/L Carbon Dioxide 25 (22-30) mmol/L Anion Gap 13 (10-20) BUN 70 H (9-20) mg/dl Creatinine 3.4 H (0.8-1.5) mg/dl Est GFR ( Amer) 22 Est GFR (Non-Af Amer) 18 POC Glucose (mg/dL) (65-110) mg/dL Random Glucose 200 H (75-110) mg/dL Calcium 8.5 (8.4-10.2) mg/dL Ferritin 187.0 (17.9-464) ng/Ml Total Bilirubin 0.2 (0.2-1.3) mg/dl AST 17 (17-59) U/L ALT 42 (21-72) U/L Alkaline Phosphatase 163 H (38-126) U/L Total Protein 5.6 L (6.3-8.2) G/DL Albumin 2.7 L D (3.5-5.0) g/dL Globulin 2.9 (2.2-3.9) gm/dL Albumin/Globulin Ratio 1.0 (1.0-2.1) Vitamin B12 603 (239-931) pg/mL Blood Type Antibody Screen Crossmatch BBK History Checked 07/07/17 07/07/17 07/06/17 Range/Units 04:20 04:16 22:01 WBC 5.8 (4.8-10.8) K/uL RBC 2.41 L (4.40-5.90) Mil/uL Hgb 7.6 L (12.0-18.0) g/dL Hct 22.6 L (35.0-51.0) % MCV 93.7 (80.0-94.0) fl MCH 31.5 H (27.0-31.0) pg MCHC 33.6 (33.0-37.0) g/dL RDW 16.0 H (11.5-14.5) % Plt Count 75 L (130-400) K/uL Neutrophils % (Manual) (42-75) % Lymphocytes % (Manual) (20-50) % Monocytes % (Manual) (0-10) % Eosinophils % (Manual) (0-7) % Basophils % (Manual) (0-2) % Platelet Estimate (NORMAL) Large Platelets Giant Platelets Hypochromasia (manual) Anisocytosis (manual) Ovalocytes Schistocytes Retic Count (0.5-1.5) % pCO2 (35-45) mm/Hg pO2 (80-100) mm/Hg HCO3 (21-28) mmol/L ABG pH (7.35-7.45) ABG Total CO2 (22-28) mmol/L ABG O2 Saturation (95-98) % ABG O2 Content (15-23) ML/dL ABG Base Excess (-2.0-3.0) mmol/L ABG Hemoglobin (11.7-17.4) g/dL ABG Carboxyhemoglobin (0.5-1.5) % POC ABG HHb (Measured) (0.0-5.0) % ABG Methemoglobin (0.0-3.0) % ABG O2 Capacity (16-24) mL/dL Andry Test A-a O2 Difference mm/Hg Hgb O2 Saturation (95.0-98.0) % Vent Mode Mechanical Rate FiO2 % Tidal Volume PEEP Sodium (132-148) mmol/l Potassium (3.6-5.0) MMOL/L Chloride (98-107) mmol/L Carbon Dioxide (22-30) mmol/L Anion Gap (10-20) BUN (9-20) mg/dl Creatinine (0.8-1.5) mg/dl Est GFR ( Amer) Est GFR (Non-Af Amer) POC Glucose (mg/dL) 183 H 180 H (65-110) mg/dL Random Glucose (75-110) mg/dL Calcium (8.4-10.2) mg/dL Ferritin (17.9-464) ng/Ml Total Bilirubin (0.2-1.3) mg/dl AST (17-59) U/L ALT (21-72) U/L Alkaline Phosphatase (38-126) U/L Total Protein (6.3-8.2) G/DL Albumin (3.5-5.0) g/dL Globulin (2.2-3.9) gm/dL Albumin/Globulin Ratio (1.0-2.1) Vitamin B12 (239-931) pg/mL Blood Type Antibody Screen Crossmatch BBK History Checked 07/06/17 07/06/17 07/06/17 Range/Units 16:03 15:15 11:20 WBC (4.8-10.8) K/uL RBC (4.40-5.90) Mil/uL Hgb (12.0-18.0) g/dL Hct (35.0-51.0) % MCV (80.0-94.0) fl MCH (27.0-31.0) pg MCHC (33.0-37.0) g/dL RDW (11.5-14.5) % Plt Count (130-400) K/uL Neutrophils % (Manual) (42-75) % Lymphocytes % (Manual) (20-50) % Monocytes % (Manual) (0-10) % Eosinophils % (Manual) (0-7) % Basophils % (Manual) (0-2) % Platelet Estimate (NORMAL) Large Platelets Giant Platelets Hypochromasia (manual) Anisocytosis (manual) Ovalocytes Schistocytes Retic Count (0.5-1.5) % pCO2 (35-45) mm/Hg pO2 (80-100) mm/Hg HCO3 (21-28) mmol/L ABG pH (7.35-7.45) ABG Total CO2 (22-28) mmol/L ABG O2 Saturation (95-98) % ABG O2 Content (15-23) ML/dL ABG Base Excess (-2.0-3.0) mmol/L ABG Hemoglobin (11.7-17.4) g/dL ABG Carboxyhemoglobin (0.5-1.5) % POC ABG HHb (Measured) (0.0-5.0) % ABG Methemoglobin (0.0-3.0) % ABG O2 Capacity (16-24) mL/dL Andry Test A-a O2 Difference mm/Hg Hgb O2 Saturation (95.0-98.0) % Vent Mode Mechanical Rate FiO2 % Tidal Volume PEEP Sodium (132-148) mmol/l Potassium (3.6-5.0) MMOL/L Chloride (98-107) mmol/L Carbon Dioxide (22-30) mmol/L Anion Gap (10-20) BUN (9-20) mg/dl Creatinine (0.8-1.5) mg/dl Est GFR ( Amer) Est GFR (Non-Af Amer) POC Glucose (mg/dL) 217 H 211 H (65-110) mg/dL Random Glucose (75-110) mg/dL Calcium (8.4-10.2) mg/dL Ferritin (17.9-464) ng/Ml Total Bilirubin (0.2-1.3) mg/dl AST (17-59) U/L ALT (21-72) U/L Alkaline Phosphatase (38-126) U/L Total Protein (6.3-8.2) G/DL Albumin (3.5-5.0) g/dL Globulin (2.2-3.9) gm/dL Albumin/Globulin Ratio (1.0-2.1) Vitamin B12 (239-931) pg/mL Blood Type A NEGATIVE Antibody Screen Negative Crossmatch See Detail BBK History Checked Patient has bt 07/06/17 07/03/17 Range/Units 05:30 10:10 WBC (4.8-10.8) K/uL RBC (4.40-5.90) Mil/uL Hgb (12.0-18.0) g/dL Hct (35.0-51.0) % MCV (80.0-94.0) fl MCH (27.0-31.0) pg MCHC (33.0-37.0) g/dL RDW (11.5-14.5) % Plt Count (130-400) K/uL Neutrophils % (Manual) 86 H (42-75) % Lymphocytes % (Manual) 5 L (20-50) % Monocytes % (Manual) 6 (0-10) % Eosinophils % (Manual) 1 (0-7) % Basophils % (Manual) 2 (0-2) % Platelet Estimate Decreased L (NORMAL) Large Platelets Present Giant Platelets Present Hypochromasia (manual) Moderate Anisocytosis (manual) Slight Ovalocytes Slight Schistocytes Slight Retic Count (0.5-1.5) % pCO2 (35-45) mm/Hg pO2 (80-100) mm/Hg HCO3 (21-28) mmol/L ABG pH (7.35-7.45) ABG Total CO2 (22-28) mmol/L ABG O2 Saturation (95-98) % ABG O2 Content (15-23) ML/dL ABG Base Excess (-2.0-3.0) mmol/L ABG Hemoglobin (11.7-17.4) g/dL ABG Carboxyhemoglobin (0.5-1.5) % POC ABG HHb (Measured) (0.0-5.0) % ABG Methemoglobin (0.0-3.0) % ABG O2 Capacity (16-24) mL/dL Andry Test A-a O2 Difference mm/Hg Hgb O2 Saturation (95.0-98.0) % Vent Mode Mechanical Rate FiO2 % Tidal Volume PEEP Sodium (132-148) mmol/l Potassium (3.6-5.0) MMOL/L Chloride (98-107) mmol/L Carbon Dioxide (22-30) mmol/L Anion Gap (10-20) BUN (9-20) mg/dl Creatinine (0.8-1.5) mg/dl Est GFR ( Amer) Est GFR (Non-Af Amer) POC Glucose (mg/dL) (65-110) mg/dL Random Glucose (75-110) mg/dL Calcium (8.4-10.2) mg/dL Ferritin (17.9-464) ng/Ml Total Bilirubin (0.2-1.3) mg/dl AST (17-59) U/L ALT (21-72) U/L Alkaline Phosphatase (38-126) U/L Total Protein (6.3-8.2) G/DL Albumin (3.5-5.0) g/dL Globulin (2.2-3.9) gm/dL Albumin/Globulin Ratio (1.0-2.1) Vitamin B12 (239-931) pg/mL Blood Type Antibody Screen Crossmatch See Detail BBK History Checked Laboratory Results - last 24 hr 07/03/17 07/06/17 07/06/17 10:10 05:30 11:20 WBC RBC Hgb Hct MCV MCH MCHC RDW Plt Count Neutrophils % (Manual) 86 H Lymphocytes % (Manual) 5 L Monocytes % (Manual) 6 Eosinophils % (Manual) 1 Basophils % (Manual) 2 Platelet Estimate Decreased L Large Platelets Present Giant Platelets Present Hypochromasia (manual) Moderate Anisocytosis (manual) Slight Ovalocytes Slight Schistocytes Slight Retic Count pCO2 pO2 HCO3 ABG pH ABG Total CO2 ABG O2 Saturation ABG O2 Content ABG Base Excess ABG Hemoglobin ABG Carboxyhemoglobin POC ABG HHb (Measured) ABG Methemoglobin ABG O2 Capacity Andry Test A-a O2 Difference Hgb O2 Saturation Vent Mode Mechanical Rate FiO2 Tidal Volume PEEP Sodium Potassium Chloride Carbon Dioxide Anion Gap BUN Creatinine Est GFR ( Amer) Est GFR (Non-Af Amer) POC Glucose (mg/dL) 211 H Random Glucose Calcium Ferritin Total Bilirubin AST ALT Alkaline Phosphatase Total Protein Albumin Globulin Albumin/Globulin Ratio Vitamin B12 Blood Type Antibody Screen Crossmatch See Detail BBK History Checked 07/06/17 07/06/17 07/06/17 15:15 16:03 22:01 WBC RBC Hgb Hct MCV MCH MCHC RDW Plt Count Neutrophils % (Manual) Lymphocytes % (Manual) Monocytes % (Manual) Eosinophils % (Manual) Basophils % (Manual) Platelet Estimate Large Platelets Giant Platelets Hypochromasia (manual) Anisocytosis (manual) Ovalocytes Schistocytes Retic Count pCO2 pO2 HCO3 ABG pH ABG Total CO2 ABG O2 Saturation ABG O2 Content ABG Base Excess ABG Hemoglobin ABG Carboxyhemoglobin POC ABG HHb (Measured) ABG Methemoglobin ABG O2 Capacity Andry Test A-a O2 Difference Hgb O2 Saturation Vent Mode Mechanical Rate FiO2 Tidal Volume PEEP Sodium Potassium Chloride Carbon Dioxide Anion Gap BUN Creatinine Est GFR ( Amer) Est GFR (Non-Af Amer) POC Glucose (mg/dL) 217 H 180 H Random Glucose Calcium Ferritin Total Bilirubin AST ALT Alkaline Phosphatase Total Protein Albumin Globulin Albumin/Globulin Ratio Vitamin B12 Blood Type A NEGATIVE Antibody Screen Negative Crossmatch See Detail BBK History Checked Patient has bt 07/07/17 07/07/17 07/07/17 04:16 04:20 04:20 WBC 5.8 RBC 2.41 L Hgb 7.6 L Hct 22.6 L MCV 93.7 MCH 31.5 H MCHC 33.6 RDW 16.0 H Plt Count 75 L Neutrophils % (Manual) Lymphocytes % (Manual) Monocytes % (Manual) Eosinophils % (Manual) Basophils % (Manual) Platelet Estimate Large Platelets Giant Platelets Hypochromasia (manual) Anisocytosis (manual) Ovalocytes Schistocytes Retic Count pCO2 pO2 HCO3 ABG pH ABG Total CO2 ABG O2 Saturation ABG O2 Content ABG Base Excess ABG Hemoglobin ABG Carboxyhemoglobin POC ABG HHb (Measured) ABG Methemoglobin ABG O2 Capacity Andry Test A-a O2 Difference Hgb O2 Saturation Vent Mode Mechanical Rate FiO2 Tidal Volume PEEP Sodium 144 Potassium 3.6 Chloride 110 H Carbon Dioxide 25 Anion Gap 13 BUN 70 H Creatinine 3.4 H Est GFR ( Amer) 22 Est GFR (Non-Af Amer) 18 POC Glucose (mg/dL) 183 H Random Glucose 200 H Calcium 8.5 Ferritin 187.0 Total Bilirubin 0.2 AST 17 ALT 42 Alkaline Phosphatase 163 H Total Protein 5.6 L Albumin 2.7 L D Globulin 2.9 Albumin/Globulin Ratio 1.0 Vitamin B12 603 Blood Type Antibody Screen Crossmatch BBK History Checked 07/07/17 07/07/17 04:20 05:49 WBC RBC Hgb Hct MCV MCH MCHC RDW Plt Count Neutrophils % (Manual) Lymphocytes % (Manual) Monocytes % (Manual) Eosinophils % (Manual) Basophils % (Manual) Platelet Estimate Large Platelets Giant Platelets Hypochromasia (manual) Anisocytosis (manual) Ovalocytes Schistocytes Retic Count 0.8 D pCO2 42 pO2 126 H HCO3 24.3 ABG pH 7.37 ABG Total CO2 25.6 ABG O2 Saturation 100.9 H ABG O2 Content 10.1 L ABG Base Excess -0.9 ABG Hemoglobin 7.1 L ABG Carboxyhemoglobin 2.1 H POC ABG HHb (Measured) -0.9 L ABG Methemoglobin 0.4 ABG O2 Capacity 10.0 L Andry Test Yes A-a O2 Difference 107.0 Hgb O2 Saturation 98.4 H Vent Mode Prvc/ac Mechanical Rate 14 FiO2 40.0 Tidal Volume 400 PEEP 5 Sodium Potassium Chloride Carbon Dioxide Anion Gap BUN Creatinine Est GFR ( Amer) Est GFR (Non-Af Amer) POC Glucose (mg/dL) Random Glucose Calcium Ferritin Total Bilirubin AST ALT Alkaline Phosphatase Total Protein Albumin Globulin Albumin/Globulin Ratio Vitamin B12 Blood Type Antibody Screen Crossmatch BBK History Checked Fingerstick Blood Sugar Results: 183 Review of Systems - Review of Systems Review of Systems: unable to obtain given patient currently intubated Assessment/Plan - Assessment and Plan (Free Text) Plan: 66 y.o. male admitted for sepsis with history of Nephrotic syndrome, recurrently pulmonary effusion, underlying Type II DM now with continued respiratory failure with continued dependence on mechanical ventilation. Assessment/Plan 1- Acute Respiratory Failure of unclear etiology with recurrent left pleural effusion a- Will consider Tracheostomy tube given patient has failed weaning trial b- Continue current management and re-evaluate c- Consider chest tube placement and pleurodysis given patient is not a good candidate for lung biopsy d- Pulmonology consult Dr. Raymond input appreciated 2- Nephrotic Syndrome- due to Type II DM a- Pt. with low albumin b- Continue current management with I.V. diuretics c- Neprhology consult Dr. Luz input appreciated 3- Hospital acquired Pneumonia a- Continue I.V. antibiotics b- Follow cultures c- Consider repeat quantiferon gold d- Pulmonolology consult Dr. Raymond input appreciated 4- DM-chronic a- Continue current mangement 5- Hyperpolactinemia- of undetermined significance consider occult siezures a- c/w Keppra 6- HTN- Well controlled a- c/w current management 7- DVT prophlaxis a- Lovenox 40 mg sc 8- GI prophylaxis a- Protonix 40mg daily 9- Code status a- DNR <LatefHakan M - Last Filed: 07/07/17 17:54> CCU Objective - Vital Signs / Intake & Output Vital Signs (Last 4 hours): Vital Signs Temp Pulse Resp BP Pulse Ox 07/07/17 16:00 98.2 F 79 16 149/62 100 07/07/17 14:00 71 20 155/59 H 100 Intake and Output (Last 8hrs): Intake & Output 07/07/17 07/07/17 07/07/17 06:59 14:59 22:59 Intake Total 765 1000 Output Total 400 Balance 365 1000 Weight 148 lb Intake: Intake, Piggyback 50 600 Tube Feeding 315 400 Free Water Flush 400 Output: Urine 400 Urethral (Salazar) 400 Other: # Bowel Movements 1 1 - Medications Active Medications: Active Medications Generic Name Dose Route Start Last Admin Trade Name Freq PRN Reason Stop Dose Admin Albuterol/Ipratropium 3 ml 06/28/17 16:00 07/07/17 15:54 Duoneb 3 Mg/0.5 Mg (3 Ml) Ud INH 3 ml RQID THOMAS Administration Amlodipine Besylate 10 mg 07/05/17 09:00 07/07/17 09:13 Norvasc PO 10 mg DAILY THOMAS Administration Bacitracin 1 applic 06/27/17 13:00 07/07/17 12:42 Bacitracin Oint TOP 1 applic TID THOMAS Administration Calcium Acetate 2,001 mg 07/05/17 08:30 07/07/17 12:45 Phoslo PO 2,001 mg 0830,1200,1830 THOMAS Administration Dextrose 0 ml 06/22/17 22:36 Dextrose 50% Inj IV STAT PRN Hypoglycemia Protocol Protocol Dextrose 0 gm 06/22/17 22:36 Glutose 15 PO ONCE PRN Hypoglycemia Protocol Protocol Enoxaparin Sodium 30 mg 07/02/17 09:00 07/07/17 09:10 Lovenox SC 30 mg DAILY THOMAS Administration Protocol Epoetin Roel 14,000 unit 07/07/17 09:00 07/07/17 09:14 Procrit SC 14,000 unit MWF THOMAS Administration Ergocalciferol 1 cap 06/24/17 10:00 07/01/17 09:01 Drisdol 50,000 Intl Units Cap PO 1 cap Q7D THOMAS Administration Glipizide 10 mg 07/07/17 16:30 Glucotrol PO BIDAC THOMAS Glucagon 0 mg 06/22/17 22:36 Glucagen Diagnostic Kit IM STAT PRN Hypoglycemia Protocol Protocol Hydralazine HCl 25 mg 07/02/17 01:00 07/07/17 09:06 Apresoline PO 25 mg Q8 THOMAS Administration Linezolid 600 mg in 300 mls @ 300 mls/hr 06/25/17 21:00 07/07/17 09:12 Zyvox 600mg/300ml D5w IVPB 300 mls/hr Q12 THOMAS Administration Protocol Cefepime HCl 1 gm/ Sodium 100 mls @ 100 mls/hr 06/26/17 09:00 07/07/17 09:11 Chloride IVPB 100 mls/hr DAILY THOMAS Administration Protocol Micafungin Sodium 100 mg/ 100 mls @ 100 mls/hr 07/01/17 13:45 07/07/17 12:44 Sodium Chloride IVPB 100 mls/hr DAILY THOMAS Administration Protocol Levetiracetam 500 mg/ Sodium 105 mls @ 210 mls/hr 07/04/17 21:00 07/07/17 09: 08 Chloride IVPB 210 mls/hr Q12 THOMAS Administration Insulin Human Lispro 0 units 07/07/17 16:30 Humalog SC ACHS [facility] Protocol Levothyroxine Sodium 50 mcg 07/05/17 06:30 07/07/17 06:38 Synthroid PO 50 mcg DAILY@0630 THOMAS Administration Metoprolol Tartrate 5 mg 07/03/17 15:24 07/07/17 09:10 Lopressor IVP 5 mg Q6 THOMAS Administration Pantoprazole Sodium 40 mg 07/04/17 09:00 07/07/17 09:15 Protonix Inj IVP 40 mg DAILY THOMAS Administration Sodium Bicarbonate 1,300 mg 06/30/17 17:00 07/02/17 16:23 Sodium Bicarbonate Tab PO 1,300 mg Q8 THOMAS Administration Thiamine HCl 100 mg 06/24/17 21:30 07/07/17 09:15 Vitamin B1 Tab PO 100 mg BID THOMAS Administration - Patient Studies Lab Studies: Microbiology Studies 07/06/17 19:20 Mycobacterial Culture - Preliminary Other: Please Indicate Lab Studies 01/08/18 01/08/18 01/08/18 Range/Units 16:09 12:11 05:49 WBC (4.8-10.8) K/uL RBC (4.40-5.90) Mil/uL Hgb (12.0-18.0) g/dL Hct (35.0-51.0) % MCV (80.0-94.0) fl MCH (27.0-31.0) pg MCHC (33.0-37.0) g/dL RDW (11.5-14.5) % Plt Count (130-400) K/uL Retic Count (0.5-1.5) % pCO2 42 (35-45) mm/Hg pO2 126 H (80-100) mm/Hg HCO3 24.3 (21-28) mmol/L ABG pH 7.37 (7.35-7.45) ABG Total CO2 25.6 (22-28) mmol/L ABG O2 Saturation 100.9 H (95-98) % ABG O2 Content 10.1 L (15-23) ML/dL ABG Base Excess -0.9 (-2.0-3.0) mmol/L ABG Hemoglobin 7.1 L (11.7-17.4) g/dL ABG Carboxyhemoglobin 2.1 H (0.5-1.5) % POC ABG HHb (Measured) -0.9 L (0.0-5.0) % ABG Methemoglobin 0.4 (0.0-3.0) % ABG O2 Capacity 10.0 L (16-24) mL/dL Andry Test Yes A-a O2 Difference 107.0 mm/Hg Hgb O2 Saturation 98.4 H (95.0-98.0) % Vent Mode Prvc/ac Mechanical Rate 14 FiO2 40.0 % Tidal Volume 400 PEEP 5 Sodium (132-148) mmol/l Potassium (3.6-5.0) MMOL/L Chloride (98-107) mmol/L Carbon Dioxide (22-30) mmol/L Anion Gap (10-20) BUN (9-20) mg/dl Creatinine (0.8-1.5) mg/dl Est GFR ( Amer) Est GFR (Non-Af Amer) POC Glucose (mg/dL) 219 H 222 H (65-110) mg/dL Random Glucose (75-110) mg/dL Calcium (8.4-10.2) mg/dL Ferritin (17.9-464) ng/Ml Total Bilirubin (0.2-1.3) mg/dl AST (17-59) U/L ALT (21-72) U/L Alkaline Phosphatase (38-126) U/L Total Protein (6.3-8.2) G/DL Albumin (3.5-5.0) g/dL Globulin (2.2-3.9) gm/dL Albumin/Globulin Ratio (1.0-2.1) Vitamin B12 (239-931) pg/mL Folate ng/mL Blood Type Antibody Screen Crossmatch BBK History Checked 07/07/17 07/07/17 07/07/17 Range/Units 04:20 04:20 04:20 WBC 5.8 (4.8-10.8) K/uL RBC 2.41 L (4.40-5.90) Mil/uL Hgb 7.6 L (12.0-18.0) g/dL Hct 22.6 L (35.0-51.0) % MCV 93.7 (80.0-94.0) fl MCH 31.5 H (27.0-31.0) pg MCHC 33.6 (33.0-37.0) g/dL RDW 16.0 H (11.5-14.5) % Plt Count 75 L (130-400) K/uL Retic Count 0.8 D (0.5-1.5) % pCO2 (35-45) mm/Hg pO2 (80-100) mm/Hg HCO3 (21-28) mmol/L ABG pH (7.35-7.45) ABG Total CO2 (22-28) mmol/L ABG O2 Saturation (95-98) % ABG O2 Content (15-23) ML/dL ABG Base Excess (-2.0-3.0) mmol/L ABG Hemoglobin (11.7-17.4) g/dL ABG Carboxyhemoglobin (0.5-1.5) % POC ABG HHb (Measured) (0.0-5.0) % ABG Methemoglobin (0.0-3.0) % ABG O2 Capacity (16-24) mL/dL Andry Test A-a O2 Difference mm/Hg Hgb O2 Saturation (95.0-98.0) % Vent Mode Mechanical Rate FiO2 % Tidal Volume PEEP Sodium 144 (132-148) mmol/l Potassium 3.6 (3.6-5.0) MMOL/L Chloride 110 H (98-107) mmol/L Carbon Dioxide 25 (22-30) mmol/L Anion Gap 13 (10-20) BUN 70 H (9-20) mg/dl Creatinine 3.4 H (0.8-1.5) mg/dl Est GFR ( Amer) 22 Est GFR (Non-Af Amer) 18 POC Glucose (mg/dL) (65-110) mg/dL Random Glucose 200 H (75-110) mg/dL Calcium 8.5 (8.4-10.2) mg/dL Ferritin 187.0 (17.9-464) ng/Ml Total Bilirubin 0.2 (0.2-1.3) mg/dl AST 17 (17-59) U/L ALT 42 (21-72) U/L Alkaline Phosphatase 163 H (38-126) U/L Total Protein 5.6 L (6.3-8.2) G/DL Albumin 2.7 L D (3.5-5.0) g/dL Globulin 2.9 (2.2-3.9) gm/dL Albumin/Globulin Ratio 1.0 (1.0-2.1) Vitamin B12 603 (239-931) pg/mL Folate 9.8 ng/mL Blood Type Antibody Screen Crossmatch BBK History Checked 07/07/17 07/06/17 07/06/17 Range/Units 04:16 22:01 15:15 WBC (4.8-10.8) K/uL RBC (4.40-5.90) Mil/uL Hgb (12.0-18.0) g/dL Hct (35.0-51.0) % MCV (80.0-94.0) fl MCH (27.0-31.0) pg MCHC (33.0-37.0) g/dL RDW (11.5-14.5) % Plt Count (130-400) K/uL Retic Count (0.5-1.5) % pCO2 (35-45) mm/Hg pO2 (80-100) mm/Hg HCO3 (21-28) mmol/L ABG pH (7.35-7.45) ABG Total CO2 (22-28) mmol/L ABG O2 Saturation (95-98) % ABG O2 Content (15-23) ML/dL ABG Base Excess (-2.0-3.0) mmol/L ABG Hemoglobin (11.7-17.4) g/dL ABG Carboxyhemoglobin (0.5-1.5) % POC ABG HHb (Measured) (0.0-5.0) % ABG Methemoglobin (0.0-3.0) % ABG O2 Capacity (16-24) mL/dL Andry Test A-a O2 Difference mm/Hg Hgb O2 Saturation (95.0-98.0) % Vent Mode Mechanical Rate FiO2 % Tidal Volume PEEP Sodium (132-148) mmol/l Potassium (3.6-5.0) MMOL/L Chloride (98-107) mmol/L Carbon Dioxide (22-30) mmol/L Anion Gap (10-20) BUN (9-20) mg/dl Creatinine (0.8-1.5) mg/dl Est GFR ( Amer) Est GFR (Non-Af Amer) POC Glucose (mg/dL) 183 H 180 H (65-110) mg/dL Random Glucose (75-110) mg/dL Calcium (8.4-10.2) mg/dL Ferritin (17.9-464) ng/Ml Total Bilirubin (0.2-1.3) mg/dl AST (17-59) U/L ALT (21-72) U/L Alkaline Phosphatase (38-126) U/L Total Protein (6.3-8.2) G/DL Albumin (3.5-5.0) g/dL Globulin (2.2-3.9) gm/dL Albumin/Globulin Ratio (1.0-2.1) Vitamin B12 (239-931) pg/mL Folate ng/mL Blood Type A NEGATIVE Antibody Screen Negative Crossmatch See Detail BBK History Checked Patient has bt Laboratory Results - last 24 hr 07/06/17 07/06/17 07/07/17 15:15 22:01 04:16 WBC RBC Hgb Hct MCV MCH MCHC RDW Plt Count Retic Count pCO2 pO2 HCO3 ABG pH ABG Total CO2 ABG O2 Saturation ABG O2 Content ABG Base Excess ABG Hemoglobin ABG Carboxyhemoglobin POC ABG HHb (Measured) ABG Methemoglobin ABG O2 Capacity Andry Test A-a O2 Difference Hgb O2 Saturation Vent Mode Mechanical Rate FiO2 Tidal Volume PEEP Sodium Potassium Chloride Carbon Dioxide Anion Gap BUN Creatinine Est GFR ( Amer) Est GFR (Non-Af Amer) POC Glucose (mg/dL) 180 H 183 H Random Glucose Calcium Ferritin Total Bilirubin AST ALT Alkaline Phosphatase Total Protein Albumin Globulin Albumin/Globulin Ratio Vitamin B12 Folate Blood Type A NEGATIVE Antibody Screen Negative Crossmatch See Detail BBK History Checked Patient has bt 07/07/17 07/07/17 07/07/17 04:20 04:20 04:20 WBC 5.8 RBC 2.41 L Hgb 7.6 L Hct 22.6 L MCV 93.7 MCH 31.5 H MCHC 33.6 RDW 16.0 H Plt Count 75 L Retic Count 0.8 D pCO2 pO2 HCO3 ABG pH ABG Total CO2 ABG O2 Saturation ABG O2 Content ABG Base Excess ABG Hemoglobin ABG Carboxyhemoglobin POC ABG HHb (Measured) ABG Methemoglobin ABG O2 Capacity Andry Test A-a O2 Difference Hgb O2 Saturation Vent Mode Mechanical Rate FiO2 Tidal Volume PEEP Sodium 144 Potassium 3.6 Chloride 110 H Carbon Dioxide 25 Anion Gap 13 BUN 70 H Creatinine 3.4 H Est GFR ( Amer) 22 Est GFR (Non-Af Amer) 18 POC Glucose (mg/dL) Random Glucose 200 H Calcium 8.5 Ferritin 187.0 Total Bilirubin 0.2 AST 17 ALT 42 Alkaline Phosphatase 163 H Total Protein 5.6 L Albumin 2.7 L D Globulin 2.9 Albumin/Globulin Ratio 1.0 Vitamin B12 603 Folate 9.8 Blood Type Antibody Screen Crossmatch BBK History Checked 07/07/17 07/07/17 07/07/17 05:49 12:11 16:09 WBC RBC Hgb Hct MCV MCH MCHC RDW Plt Count Retic Count pCO2 42 pO2 126 H HCO3 24.3 ABG pH 7.37 ABG Total CO2 25.6 ABG O2 Saturation 100.9 H ABG O2 Content 10.1 L ABG Base Excess -0.9 ABG Hemoglobin 7.1 L ABG Carboxyhemoglobin 2.1 H POC ABG HHb (Measured) -0.9 L ABG Methemoglobin 0.4 ABG O2 Capacity 10.0 L Andry Test Yes A-a O2 Difference 107.0 Hgb O2 Saturation 98.4 H Vent Mode Prvc/ac Mechanical Rate 14 FiO2 40.0 Tidal Volume 400 PEEP 5 Sodium Potassium Chloride Carbon Dioxide Anion Gap BUN Creatinine Est GFR ( Amer) Est GFR (Non-Af Amer) POC Glucose (mg/dL) 222 H 219 H Random Glucose Calcium Ferritin Total Bilirubin AST ALT Alkaline Phosphatase Total Protein Albumin Globulin Albumin/Globulin Ratio Vitamin B12 Folate Blood Type Antibody Screen Crossmatch BBK History Checked Attending/Attestation - Attestation I have personally seen and examined this patient.: Yes I have fully participated in the care of the patient.: Yes I have reviewed all pertinent clinical information: Yes Notes (Text): 07/07/17 17:54 Today: Friday, July 07, 2017 The patient was Seen/interviewed and examined by me at the bedside during ICU round, Medical records reviewed and Management issues were discussed and formulated with the house staff. Events reviewed I have reviewed all the relevant clinical, laboratory, hemodynamic, radiographic data and medications Pain issues, skin care, head of the bed elevation, glycemic control were addressed. I concur with resident's assessment and plan of care as transcribed in Dr. Curiel note.
[2017-07-07] MEDS: Micafungin 100 MG in Sodium Chloride 0.9% 100 ML IVPB SCH (12:44)
[2017-07-07 13:45] LABS: FOLATE 9.8 ng/mL
--- NOTE | 2017-07-07 16:29 | PN ---
DATE: ENDOCRINOLOGY FOLLOWUP NOTE LOCATION: Room 433, ICU. SUBJECTIVE: This is a 66-year-old male who was admitted with acute respiratory failure and underlying bilateral pleural effusion and currently extubated and tolerating his high oxygen delivery by nasal cannula as noted and is also being followed closely for metabolic management. His glycemic levels are fluctuating but much improved at this time and the latest glucose levels have ranged from 180 to 183 and 222 mg/dL. The latest chemistries showed a BUN of 20, sodium 144, potassium 3.6, chloride 110, CO2 of 25, glucose 200, and creatinine 3.4. His latest thyroid studies showed a T4 of 5.58 with a TSH of 5.55 and a free T4 of 0.70 and a prolactin of 52.7. So, at this time, we will continue the low dose levothyroxine given as 50 mcg once daily as ordered. We will obtain serum chemistries and supplement accordingly as needed. We will also add glipizide given as 10 mg b.i.d. before meals as ordered. We will titrate incrementally as indicated to optimize metabolic control. We will follow and advise accordingly. Bettina Mann MD
--- NOTE | 2017-07-07 20:28 | CP.PCM.PN ---
Subjective - Date & Time of Evaluation Date of Evaluation: 07/07/17 Time of Evaluation: 12:00 - Subjective Subjective: Patient still intubated; fluctuating mental status reported but has been alert and following commands; s/p 1 u prbc transfusion yesterday; Objective - Vital Signs/Intake and Output Vital Signs (last 24 hours): Temp Pulse Resp BP Pulse Ox 98.2 F 76 27 H 154/58 H 100 07/07/17 16:00 07/07/17 18:07 07/07/17 18:00 07/07/17 18:07 07/07/17 18:00 Intake and Output: 07/07/17 07/08/17 18:59 06:59 Intake Total 1788 Output Total 500 Balance 1288 - Medications Medications: Current Medications Albumin Human (Albumin Human 25% (12.5 Gm/50 Ml)) 12.5 gm IV Q6H [facility] Stop: 07/08/17 02:31 Albuterol/Ipratropium (Duoneb 3 Mg/0.5 Mg (3 Ml) Ud) 3 ml INH RQID [facility] Last Admin: 07/07/17 19:20 Dose: 3 ml Amlodipine Besylate (Norvasc) 10 mg PO DAILY [facility] Last Admin: 07/07/17 09:13 Dose: 10 mg Bacitracin (Bacitracin Oint) 1 applic TOP TID [facility] Last Admin: 07/07/17 17:57 Dose: 1 applic Calcium Acetate (Phoslo) 2,001 mg PO 0830,1200,1830 [facility] Last Admin: 07/07/17 18:07 Dose: 2,001 mg Dextrose (Dextrose 50% Inj) 0 ml IV STAT PRN; Protocol PRN Reason: Hypoglycemia Protocol Dextrose (Glutose 15) 0 gm PO ONCE PRN; Protocol PRN Reason: Hypoglycemia Protocol Enoxaparin Sodium (Lovenox) 30 mg SC DAILY [facility] PRN Reason: Protocol Last Admin: 07/07/17 09:10 Dose: 30 mg Epoetin Roel (Procrit) 14,000 unit SC MWF [facility] Last Admin: 07/07/17 09:14 Dose: 14,000 unit Ergocalciferol (Drisdol 50,000 Intl Units Cap) 1 cap PO Q7D [facility] Last Admin: 07/01/17 09:01 Dose: 1 cap Glipizide (Glucotrol) 10 mg PO BIDAC [facility] Last Admin: 07/07/17 17:57 Dose: 10 mg Glucagon (Glucagen Diagnostic Kit) 0 mg IM STAT PRN; Protocol PRN Reason: Hypoglycemia Protocol Hydralazine HCl (Apresoline) 25 mg PO Q8 [facility] Last Admin: 07/07/17 17:56 Dose: 25 mg Linezolid (Zyvox 600mg/300ml D5w) 600 mg in 300 mls @ 300 mls/hr IVPB Q12 [facility] PRN Reason: Protocol Last Admin: 07/07/17 20:04 Dose: 300 mls/hr Cefepime HCl 1 gm/ Sodium (Chloride) 100 mls @ 100 mls/hr IVPB DAILY [facility] PRN Reason: Protocol Last Admin: 07/07/17 09:11 Dose: 100 mls/hr Micafungin Sodium 100 mg/ (Sodium Chloride) 100 mls @ 100 mls/hr IVPB DAILY [facility] PRN Reason: Protocol Last Admin: 07/07/17 12:44 Dose: 100 mls/hr Levetiracetam 500 mg/ Sodium (Chloride) 105 mls @ 210 mls/hr IVPB Q12 [facility] Last Admin: 07/07/17 20:04 Dose: 210 mls/hr Insulin Human Lispro (Humalog) 0 units SC ACHS [facility] PRN Reason: Protocol Last Admin: 07/07/17 17:57 Dose: Not Given Levothyroxine Sodium (Synthroid) 50 mcg PO DAILY@0630 [facility] Last Admin: 07/07/17 06:38 Dose: 50 mcg Metoprolol Tartrate (Lopressor) 5 mg IVP Q6 [facility] Last Admin: 07/07/17 18:07 Dose: 5 mg Pantoprazole Sodium (Protonix Inj) 40 mg IVP DAILY [facility] Last Admin: 07/07/17 09:15 Dose: 40 mg Sodium Bicarbonate (Sodium Bicarbonate Tab) 1,300 mg PO Q8 [facility] Last Admin: 07/02/17 16:23 Dose: 1,300 mg Thiamine HCl (Vitamin B1 Tab) 100 mg PO BID [facility] Last Admin: 07/07/17 18:08 Dose: 100 mg - Labs Labs: 07/07/17 04:20 07/07/17 04:20 PT 12.9 Seconds (9.8-13.1) 07/04/17 04:40 INR 1.2 (0.9-1.2) 07/04/17 04:40 APTT 35.9 Seconds (25.6-37.1) 07/04/17 04:40 - Constitutional Appears: No Acute Distress, Chronically Ill - Eye Exam Eye Exam: absent: Scleral icterus - ENT Exam ENT Exam: Mucous Membranes Moist - Respiratory Exam Respiratory Exam: Clear to Ausculation Bilateral. absent: Respiratory Distress Additional comments: somewhat decreased sounds on L base; - Cardiovascular Exam Cardiovascular Exam: RRR, +S1, +S2 - GI/Abdominal Exam GI & Abdominal Exam: Soft. absent: Distended - Neurological Exam Neurological Exam: Alert, Awake Additional comments: following commands; - Psychiatric Exam Psychiatric exam: absent: Agitated - Skin Skin Exam: Warm. absent: Cyanosis Assessment and Plan (1) Acute renal failure Assessment & Plan: CHINTAN on CKD; ATN, recovering very slowly, likely due to hemodynamic factors ( renovascular disease along with marked hypoalbuminemia leading to compromised renal perfusion); will give some more IV albumin; avoid dropping SBP < 140-150 for now; Status: Acute (2) Pleural effusion Assessment & Plan: See note from yesterday; L sided effusion appears stable lately but concern that he may not tolerate extubation again; may need repeat thoracentesis/pleurx catheter placement; Status: Chronic (3) Nephrotic syndrome Assessment & Plan: Needs to be on max dose of KEVIN blockade but waiting till renal function improves further and stabilizes; Status: Chronic (4) Chronic kidney disease, stage 3 (moderate) Status: Chronic (5) Hypertensive CKD (chronic kidney disease) Assessment & Plan: On amlodipine 10 mg daily, hydaralazine 25 mg q8h and metoprolol 2.5 mg q6h; continue same; higher BP goal for now as mentioned above; Status: Acute (6) Hypothermia Status: Acute (7) Altered mental status Status: Acute (8) SIRS (systemic inflammatory response syndrome) Status: Acute (9) Anemia Assessment & Plan: s/p 1 u prbc yesterday, EPO dose just increased, continue qMWF; Status: Chronic (10) Monoclonal gammopathy Assessment & Plan: Discussed with heme today; didn't meet criteria for myeloma on BM biopsy previously and renal biopsy didn't show significant immunoglobulin deposition; heme doesn't think that condition would have progressed to over myeloma so quickly since BM biopsy done just 2 months ago; Status: Chronic
[2017-07-08 04:24] LABS: ABG ALLEN TEST YES; ARTERIAL BLOOD GAS HCO3 25.1 mmol/L (21-28); ARTERIAL BLOOD GAS HEMOGLOBIN 6.5 g/dL (11.7-17.4); ARTERIAL BLOOD GAS O2 CAPACITY 9.4 mL/dL (16-24); ARTERIAL BLOOD GAS O2 CONTENT 9.3 ML/dL (15-23); ARTERIAL BLOOD GAS O2 SAT 99.2 % (95-98); ARTERIAL BLOOD GAS PCO2 39 mm/Hg (35-45); ARTERIAL BLOOD GAS PH 7.41 (7.35-7.45); ARTERIAL BLOOD GAS PO2 145 mm/Hg (80-100); ARTERIAL BLOOD GAS TCO2 25.9 mmol/L (22-28)
[2017-07-08] MEDS: Albumin Human 25% (12.5 gm/50 ml) IV SCH (04:34)
[2017-07-08] MEDS: Metoprolol 1 mg/ml Inj IVP SCH ×4 (04:36→22:41)
[2017-07-08 05:39] LABS: BASO # 0.1 K/uL (0.0-0.2); BASO % 1.4 % (0.0-2.0); EOS # 0.2 K/uL (0.0-0.7); EOS % 4.1 % (0.0-4.0); LYMPH # 0.8 K/uL (1.0-4.3); LYMPH % 15.5 % (20.0-40.0); MEAN CELL VOLUME 93.8 fl (80.0-94.0); MEAN CORPUSCULAR HGB CONC 33.1 g/dL (33.0-37.0); MEAN PLATELET VOLUME 11.6 fl (7.2-11.7); MONO # 0.3 K/uL (0.0-0.8); MONO % 5.5 % (0.0-10.0); NEUT # 3.7 K/uL (1.8-7.0); NEUT % 73.5 % (50.0-75.0); NRBC % 0.7 % (0.0-0.0); RBC 2.11 Mil/uL (4.40-5.90); RED CELL DISTRIBUTION WIDTH 15.6 % (11.5-14.5); WHITE BLOOD COUNT 5.1 K/uL (4.8-10.8)
[2017-07-08 06:05] LABS: ALBUMIN 2.5 g/dL (3.5-5.0); ALT/SGPT 40 U/L (21-72); AST/SGOT 16 U/L (17-59); BLOOD UREA NITROGEN 65 mg/dl (9-20); CALCIUM 8.4 mg/dL (8.4-10.2); GFR AFRICAN-AMERICAN 25; GFR NON-AFRICAN AMERICAN 20
[2017-07-08 06:19] LABS: HEMOGLOBIN 6.5 g/dL (12.0-18.0)
[2017-07-08] MEDS: Insulin Lispro (humaLOG) 100 Units/ml Inj SC SCH ×4 (06:39→22:11)
[2017-07-08] MEDS: Levothyroxine 50 MCG TAB PO SCH (06:40)
--- NOTE | 2017-07-08 07:09 | CP.PCM.PN ---
Subjective - Date & Time of Evaluation Date of Evaluation: 07/08/17 Time of Evaluation: 07:00 - Subjective Subjective: Patient seen and examined bedside in ICU, intubated, awake, alert, no follow commands. Vent AC FIO2 40 % RR: 14 Peep 5. Salazar with normal yellow urine 150 ml. will transfuse 1 u Objective - Vital Signs/Intake and Output Vital Signs (last 24 hours): Temp Pulse Resp BP Pulse Ox 99.3 F 70 15 129/52 L 100 07/08/17 04:00 07/08/17 06:00 07/08/17 06:00 07/08/17 06:00 07/08/17 06:00 Intake and Output: 07/08/17 07/08/17 06:59 18:59 Intake Total 1740 Output Total 500 Balance 1240 - Medications Medications: Current Medications Albuterol/Ipratropium (Duoneb 3 Mg/0.5 Mg (3 Ml) Ud) 3 ml INH RQID [facility] Last Admin: 07/07/17 19:20 Dose: 3 ml Amlodipine Besylate (Norvasc) 10 mg PO DAILY [facility] Last Admin: 07/07/17 09:13 Dose: 10 mg Bacitracin (Bacitracin Oint) 1 applic TOP TID [facility] Last Admin: 07/07/17 17:57 Dose: 1 applic Calcium Acetate (Phoslo) 2,001 mg PO 0830,1200,1830 [facility] Last Admin: 07/07/17 18:07 Dose: 2,001 mg Dextrose (Dextrose 50% Inj) 0 ml IV STAT PRN; Protocol PRN Reason: Hypoglycemia Protocol Dextrose (Glutose 15) 0 gm PO ONCE PRN; Protocol PRN Reason: Hypoglycemia Protocol Enoxaparin Sodium (Lovenox) 30 mg SC DAILY [facility] PRN Reason: Protocol Last Admin: 07/07/17 09:10 Dose: 30 mg Epoetin Roel (Procrit) 14,000 unit SC MWF [facility] Last Admin: 07/07/17 09:14 Dose: 14,000 unit Ergocalciferol (Drisdol 50,000 Intl Units Cap) 1 cap PO Q7D [facility] Last Admin: 07/01/17 09:01 Dose: 1 cap Glipizide (Glucotrol) 10 mg PO BIDAC [facility] Last Admin: 07/08/17 06:40 Dose: 10 mg Glucagon (Glucagen Diagnostic Kit) 0 mg IM STAT PRN; Protocol PRN Reason: Hypoglycemia Protocol Hydralazine HCl (Apresoline) 25 mg PO Q8 [facility] Last Admin: 07/08/17 00:14 Dose: 25 mg Linezolid (Zyvox 600mg/300ml D5w) 600 mg in 300 mls @ 300 mls/hr IVPB Q12 [facility] PRN Reason: Protocol Last Admin: 07/07/17 20:04 Dose: 300 mls/hr Cefepime HCl 1 gm/ Sodium (Chloride) 100 mls @ 100 mls/hr IVPB DAILY [facility] PRN Reason: Protocol Last Admin: 07/07/17 09:11 Dose: 100 mls/hr Micafungin Sodium 100 mg/ (Sodium Chloride) 100 mls @ 100 mls/hr IVPB DAILY [facility] PRN Reason: Protocol Last Admin: 07/07/17 12:44 Dose: 100 mls/hr Levetiracetam 500 mg/ Sodium (Chloride) 105 mls @ 210 mls/hr IVPB Q12 [facility] Last Admin: 07/07/17 20:04 Dose: 210 mls/hr Insulin Human Lispro (Humalog) 0 units SC ACHS [facility] PRN Reason: Protocol Last Admin: 07/08/17 06:39 Dose: Not Given Levothyroxine Sodium (Synthroid) 50 mcg PO DAILY@0630 [facility] Last Admin: 07/08/17 06:40 Dose: 50 mcg Metoprolol Tartrate (Lopressor) 5 mg IVP Q6 [facility] Last Admin: 07/08/17 04:36 Dose: 5 mg Pantoprazole Sodium (Protonix Inj) 40 mg IVP DAILY [facility] Last Admin: 07/07/17 09:15 Dose: 40 mg Sodium Bicarbonate (Sodium Bicarbonate Tab) 1,300 mg PO Q8 [facility] Last Admin: 07/02/17 16:23 Dose: 1,300 mg Thiamine HCl (Vitamin B1 Tab) 100 mg PO BID [facility] Last Admin: 07/07/17 18:08 Dose: 100 mg - Labs Labs: 07/08/17 05:00 07/08/17 05:00 PT 12.9 Seconds (9.8-13.1) 07/04/17 04:40 INR 1.2 (0.9-1.2) 07/04/17 04:40 APTT 35.9 Seconds (25.6-37.1) 07/04/17 04:40 - Constitutional Appears: In Acute Distress - Head Exam Head Exam: ATRAUMATIC, NORMOCEPHALIC - Eye Exam Eye Exam: Normal appearance - Neck Exam Neck Exam: Normal Inspection - Respiratory Exam Respiratory Exam: Decreased Breath Sounds. absent: Rales, Rhonchi, Wheezes Additional comments: right lung base - Cardiovascular Exam Cardiovascular Exam: REGULAR RHYTHM, +S1, +S2 - GI/Abdominal Exam GI & Abdominal Exam: Soft, Normal Bowel Sounds. absent: Tenderness - Exam Additional comments: scrotal edema - Extremities Exam Extremities Exam: Normal Inspection. absent: Pedal Edema - Neurological Exam Neurological Exam: Alert, Awake, Oriented x3 - Skin Additional comments: left hand abrasion dorsal side covered with bandage and Abx Assessment and Plan - Assessment and Plan (Free Text) Plan: 66 yo M w/ PMHx HTN, DM, CKD IIIB w/ 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, monoclonal gammopathy, recurrent L pleural effusion, admitted for sepsis, Hypothermia, CHINTAN on CKD. Patient is DNR status. Assessment/Plan 1) Acute Respiratory Failure -improved -on ventilator day #5 -sputum fungus cx: preliminary neg. on mycamine 2) Recurrent Left Pleural effusion, Transudate -Pulmonology consult appreciated: no benefit for bronchoscopy or lung biopsy -IR consult consulted: right pleural effusion resolved. left side thoracentesis if ICU Dr suggests.for elective procedure will need 2 physician consent -will consider surgery consult for chest tube -quantiferon gold:positive then indeterminate 3) HAP -improved -c/w cefepime day # 13, linezolid day # 14 -Procalcitonin 14.4 trending down 7.3 4) DM nephropathy -Kidney biopsy 06/05/17: Diabetic nephropathy, nodular glomerulosclerosis, associated with aprox 40 % globally sclerosed glomeruli( calss III), 10-15 % segmentally sclerosed glomeruli, docal moderate interstitial fibrosis and mod vascular sclerosis, including marked hyaline arteriolosclerosis.NO EVIDENCE OF MONOCLONAL LIGHT OR HEAVY CHAIN-RELATED RENAL DISEASE. -Nephro consult appreciated -Renal duplex: no renal vein thrombosis 5) CHINTAN on CKD stage 4 w/ new onset of ATN - Nephorologist consult appreciated -hold Lasix DC 6) Thrombocytopenia -HemOnc consult appreciated -trending down 75-69 7) Hypothyroidism, subclinical -Econdrinologist consult appreciated -on levothryroxin 8) Hyperprolactinemia -Prolactin trending down -Endocrionologist consult suggested -MRI brain:no inracraneal hemorrhage, chronic lacunar infarct b/l cerebral, changes in dali haydee represent chronic ischemia or sequela of osmotic myelonilolysis not excluded.chronic b/l basal nuclei lacunar infarcts, mastoid ppasification secondary to intubation 9) Pressure Ulcer and TDI -Sacral region stage 2 -wound care consult appreciated 10) Acute diastolic CHF -Echo 05/31/17 normal EF 60-65% -c/w labetalol, hydralazine 11) DM 2 -SSI 12) HTN - Hydralazine 25 Q8 reduced by explosive ordnance disposal specialist. To keep systolic BP 150 - Labetalol 5m IV PRN 13) Anemia -secondary to CKD -s/p transfucion 1 u pRBC -Hgb 6.5 today. will transfuse 1 U -C/W procrit 14) DVT prophylaxis -Lovenox 30 mg sc (renal dose) 15) GI prophylaxis -Pantoprazol 40 mg IV
[2017-07-08] MEDS: Albuterol-Ipratrop 3 mg / 0.5 (3 ml) UD INH SCH ×4 (07:29→19:23)
[2017-07-08] MEDS: Ergocalciferol 50,000 Intl Units Cap PO SCH (08:40)
[2017-07-08] MEDS: Bacitracin OINT 15GM TOP SCH ×3 (08:40→18:40)
[2017-07-08] MEDS: levETIRAcetam 500 MG in Sodium Chloride 0.9% 100 ML IVPB SCH ×2 (08:42→20:43)
[2017-07-08] MEDS: Cefepime 1 GM in Sodium Chloride 0.9% 100 ML IVPB SCH (08:43)
[2017-07-08] MEDS: Linezolid 600 mg in D5W 300 ml 600 MG/300 ML BAG IVPB SCH ×2 (08:46→20:44)
[2017-07-08] MEDS: Enoxaparin 30 mg Syringe SC SCH (09:48)
--- NOTE | 2017-07-08 10:42 | CP.CCUPN ---
<MaganaLori aggarwal - Last Filed: 07/08/17 13:30> CCU Subjective - Physician Review Subjective (Free Text): Patient awake this morning on mechanical ventilation. He is not following commands. No sedation. Still has anasarca. On tube feeds. Case discussed with Payable Manager: poor prognosis. Unlikely to benefit form pleurodesis given patients nephrotic syndrome is likely contributing to recurrent pleural effusions. Patients mental status is waxing and waning. All Labs and Imaging reviewed. I/O: 3528 I /1000 O : +[id number] 66 year old male with PMH of HTN, CKD, nephrotic syndrome, chronic left sided pleural effusion admitted for hypothermia, AMS with acute hypercapnia respiratory failure on 06/22, subsequently developed acute hypoxic respiratory failure, cardiac arrest required intubation on 06/29/17. Patient was extubated on 07/02/17. Patient was intubated on 07/04/17. Patient's mental status continues to wax and wane, acute respiratory failure with worsening anemia, thrombocytopenia, persistent left sided pleural effusion in setting of nephrotic syndrome. Patient has been afebrile and leukocytosis has resolved. Cultures reviewed. Pt tolerated CPAP yesterday, however has poor mental status. Unlikely DIC but will get fibrinogen to rule out. Antibiotics: 06/22/17: Azithro/Rocephin/Vancomycin x 1 dose 06/23/17: Zosyn x 1 dose 06/25/17: Zyvox - 06/25/17- present (Day 14) 06/26/17: Maxipime 06/26/17- present (Day 13) 07/01/17: Mycamine -07/01/17- present (day 8) #. Acute respiratory failure secondary to HCAP and pleural effusions. # Anemia #. Thrombocytopenia #. Hyperprolactinemia #. 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 Hypothyroidism #. NIDDM2 #. DVT/GI Prohpylaxis Plan: Consider d/c Antibiotics, . will discuss with ID. rule out GI bleed, hold lovenox, increase protonix dosing rule out DIC, fibrinogen/coags ordered. transfused yesterday, for 1 unit PRBC transfusion today Chest tube placement by Surgery for recurrent effusion Case d/w Dr. Ellis and primary team. CCU Objective - Vital Signs / Intake & Output Vital Signs (Last 4 hours): Vital Signs Temp Pulse Resp BP Pulse Ox 07/08/17 09:49 71 150/60 07/08/17 08:44 74 140/55 L 07/08/17 08:40 74 140/55 L 07/08/17 08:00 99.0 F 75 12 140/55 L 100 Intake and Output (Last 8hrs): Intake & Output 07/07/17 07/08/17 07/08/17 22:59 06:59 14:59 Intake Total 1668 860 Output Total 500 500 Balance 1168 360 Intake: IV 48 Intake, Piggyback 500 100 Tube Feeding 720 360 Free Water Flush 400 400 Output: Urine 500 500 Urethral (Salazar) 500 500 Other: # Bowel Movements 1 - Physical Exam Head: Positive for: Atraumatic, Normocephalic Pupils: Positive for: PERRL Mouth: Positive for: Moist Mucous Membranes Nose (External): Positive for: Abrasion (Nasal Abrasion) Respiratory/Chest: Positive for: Good Air Exchange (on mechancal ventilation), Decreased Breath Sounds (left side) Cardiovascular: Positive for: Regular Rate and Rhythm. Negative for: Tachycardic, Bradycardic Abdomen: Negative for: Tenderness, Distention Genitourinary Male: Positive for: Penile Swelling, Testicle Swelling Upper Extremity: Positive for: Edema (bilaterallly, 1+ pitting ) Lower Extremity: Positive for: Edema (Bilateral trace edema ). Negative for: Tenderness Neurological: Positive for: Other (awake and alert, intubated, following commands) Skin: Positive for: Warm, Dry - Medications Active Medications: Active Medications Generic Name Dose Route Start Last Admin Trade Name Abbi PRN Reason Stop Dose Admin Albuterol/Ipratropium 3 ml 06/28/17 16:00 07/08/17 07:29 Duoneb 3 Mg/0.5 Mg (3 Ml) Ud INH 3 ml RQID THOMAS Administration Amlodipine Besylate 10 mg 07/05/17 09:00 07/08/17 08:44 Norvasc PO 10 mg DAILY THOMAS Administration Bacitracin 1 applic 06/27/17 13:00 07/08/17 08:40 Bacitracin Oint TOP 1 applic TID THOMAS Administration Calcium Acetate 2,001 mg 07/05/17 08:30 07/08/17 08:44 Phoslo PO 2,001 mg 0830,1200,1830 THOMAS Administration Dextrose 0 ml 06/22/17 22:36 Dextrose 50% Inj IV STAT PRN Hypoglycemia Protocol Protocol Dextrose 0 gm 06/22/17 22:36 Glutose 15 PO ONCE PRN Hypoglycemia Protocol Protocol Enoxaparin Sodium 30 mg 07/02/17 09:00 07/08/17 09:48 Lovenox SC Not Given DAILY THOMAS Protocol Epoetin Roel 14,000 unit 07/07/17 09:00 07/07/17 09:14 Procrit SC 14,000 unit MWF THOMAS Administration Ergocalciferol 1 cap 06/24/17 10:00 07/01/17 09:01 Drisdol 50,000 Intl Units Cap PO 1 cap Q7D THOMAS Administration Glipizide 10 mg 07/07/17 16:30 07/08/17 06:40 Glucotrol PO 10 mg BIDAC THOMAS Administration Glucagon 0 mg 06/22/17 22:36 Glucagen Diagnostic Kit IM STAT PRN Hypoglycemia Protocol Protocol Hydralazine HCl 25 mg 07/02/17 01:00 07/08/17 08:40 Apresoline PO 25 mg Q8 THOMAS Administration Linezolid 600 mg in 300 mls @ 300 mls/hr 06/25/17 21:00 07/08/17 08:46 Zyvox 600mg/300ml D5w IVPB 300 mls/hr Q12 THOMAS Administration Protocol Cefepime HCl 1 gm/ Sodium 100 mls @ 100 mls/hr 06/26/17 09:00 07/08/17 08:43 Chloride IVPB 100 mls/hr DAILY THOMAS Administration Protocol Micafungin Sodium 100 mg/ 100 mls @ 100 mls/hr 07/01/17 13:45 07/07/17 12:44 Sodium Chloride IVPB 100 mls/hr DAILY THOMAS Administration Protocol Levetiracetam 500 mg/ Sodium 105 mls @ 210 mls/hr 07/04/17 21:00 07/08/17 08: 42 Chloride IVPB 210 mls/hr Q12 THOMAS Administration Insulin Human Lispro 0 units 07/07/17 16:30 07/08/17 06:39 Humalog SC Not Given ACHS THOMAS Protocol Levothyroxine Sodium 50 mcg 07/05/17 06:30 07/08/17 06:40 Synthroid PO 50 mcg DAILY@0630 THOMAS Administration Metoprolol Tartrate 5 mg 07/03/17 15:24 07/08/17 09:49 Lopressor IVP 5 mg Q6 THOMAS Administration Pantoprazole Sodium 40 mg 07/04/17 09:00 07/08/17 08:45 Protonix Inj IVP 40 mg DAILY THOMAS Administration Sodium Bicarbonate 1,300 mg 06/30/17 17:00 07/02/17 16:23 Sodium Bicarbonate Tab PO 1,300 mg Q8 THOMAS Administration Thiamine HCl 100 mg 06/24/17 21:30 07/08/17 08:46 Vitamin B1 Tab PO 100 mg BID THOMAS Administration - Patient Studies Lab Studies: Microbiology Studies 07/06/17 19:20 Mycobacterial Culture - Preliminary Other: Please Indicate Lab Studies 07/08/17 07/08/17 07/08/17 Range/Units 07:45 05:49 05:00 WBC (4.8-10.8) K/uL RBC (4.40-5.90) Mil/uL Hgb (12.0-18.0) g/dL Hct (35.0-51.0) % MCV (80.0-94.0) fl MCH (27.0-31.0) pg MCHC (33.0-37.0) g/dL RDW (11.5-14.5) % Plt Count (130-400) K/uL MPV (7.2-11.7) fl Neut % (Auto) (50.0-75.0) % Lymph % (Auto) (20.0-40.0) % Wise % (Auto) (0.0-10.0) % Eos % (Auto) (0.0-4.0) % Baso % (Auto) (0.0-2.0) % Neut # (1.8-7.0) K/uL Lymph # (1.0-4.3) K/uL Wise # (0.0-0.8) K/uL Eos # (0.0-0.7) K/uL Baso # (0.0-0.2) K/uL pCO2 (35-45) mm/Hg pO2 (80-100) mm/Hg HCO3 (21-28) mmol/L ABG pH (7.35-7.45) ABG Total CO2 (22-28) mmol/L ABG O2 Saturation (95-98) % ABG O2 Content (15-23) ML/dL ABG Base Excess (-2.0-3.0) mmol/L ABG Hemoglobin (11.7-17.4) g/dL ABG Carboxyhemoglobin (0.5-1.5) % POC ABG HHb (Measured) (0.0-5.0) % ABG Methemoglobin (0.0-3.0) % ABG O2 Capacity (16-24) mL/dL Andry Test A-a O2 Difference mm/Hg Hgb O2 Saturation (95.0-98.0) % Vent Mode Mechanical Rate FiO2 % Tidal Volume PEEP Sodium 142 (132-148) mmol/l Potassium 3.5 L (3.6-5.0) MMOL/L Chloride 107 (98-107) mmol/L Carbon Dioxide 24 (22-30) mmol/L Anion Gap 15 (10-20) BUN 65 H (9-20) mg/dl Creatinine 3.1 H (0.8-1.5) mg/dl Est GFR ( Amer) 25 Est GFR (Non-Af Amer) 20 POC Glucose (mg/dL) 154 H (65-110) mg/dL Random Glucose 163 H (75-110) mg/dL Calcium 8.4 (8.4-10.2) mg/dL Total Bilirubin < 0.1 L (0.2-1.3) mg/dl AST 16 L (17-59) U/L ALT 40 (21-72) U/L Alkaline Phosphatase 139 H (38-126) U/L Total Protein 5.2 L (6.3-8.2) G/DL Albumin 2.5 L (3.5-5.0) g/dL Globulin 2.6 (2.2-3.9) gm/dL Albumin/Globulin Ratio 1.0 (1.0-2.1) Folate ng/mL Blood Type A NEGATIVE Antibody Screen Negative Crossmatch See Detail BBK History Checked Patient has bt 07/08/17 07/08/17 07/07/17 Range/Units 05:00 04:00 21:27 WBC 5.1 (4.8-10.8) K/uL RBC 2.11 L (4.40-5.90) Mil/uL Hgb 6.5 L* (12.0-18.0) g/dL Hct 19.8 L (35.0-51.0) % MCV 93.8 (80.0-94.0) fl MCH 31.0 (27.0-31.0) pg MCHC 33.1 (33.0-37.0) g/dL RDW 15.6 H (11.5-14.5) % Plt Count 69 L (130-400) K/uL MPV 11.6 (7.2-11.7) fl Neut % (Auto) 73.5 (50.0-75.0) % Lymph % (Auto) 15.5 L (20.0-40.0) % Wise % (Auto) 5.5 (0.0-10.0) % Eos % (Auto) 4.1 H (0.0-4.0) % Baso % (Auto) 1.4 (0.0-2.0) % Neut # 3.7 (1.8-7.0) K/uL Lymph # 0.8 L (1.0-4.3) K/uL Wise # 0.3 (0.0-0.8) K/uL Eos # 0.2 (0.0-0.7) K/uL Baso # 0.1 (0.0-0.2) K/uL pCO2 39 (35-45) mm/Hg pO2 145 H (80-100) mm/Hg HCO3 25.1 (21-28) mmol/L ABG pH 7.41 (7.35-7.45) ABG Total CO2 25.9 (22-28) mmol/L ABG O2 Saturation 99.2 H (95-98) % ABG O2 Content 9.3 L (15-23) ML/dL ABG Base Excess 0.1 (-2.0-3.0) mmol/L ABG Hemoglobin 6.5 L (11.7-17.4) g/dL ABG Carboxyhemoglobin 0.8 (0.5-1.5) % POC ABG HHb (Measured) 0.8 (0.0-5.0) % ABG Methemoglobin 0.4 (0.0-3.0) % ABG O2 Capacity 9.4 L (16-24) mL/dL Andry Test Yes A-a O2 Difference 91.0 mm/Hg Hgb O2 Saturation 97.9 (95.0-98.0) % Vent Mode A/c Mechanical Rate 14 FiO2 40.0 % Tidal Volume 400 PEEP 5 Sodium (132-148) mmol/l Potassium (3.6-5.0) MMOL/L Chloride (98-107) mmol/L Carbon Dioxide (22-30) mmol/L Anion Gap (10-20) BUN (9-20) mg/dl Creatinine (0.8-1.5) mg/dl Est GFR ( Amer) Est GFR (Non-Af Amer) POC Glucose (mg/dL) 185 H (65-110) mg/dL Random Glucose (75-110) mg/dL Calcium (8.4-10.2) mg/dL Total Bilirubin (0.2-1.3) mg/dl AST (17-59) U/L ALT (21-72) U/L Alkaline Phosphatase (38-126) U/L Total Protein (6.3-8.2) G/DL Albumin (3.5-5.0) g/dL Globulin (2.2-3.9) gm/dL Albumin/Globulin Ratio (1.0-2.1) Folate ng/mL Blood Type Antibody Screen Crossmatch BBK History Checked 07/07/17 07/07/17 07/07/17 Range/Units 16:09 12:11 04:20 WBC (4.8-10.8) K/uL RBC (4.40-5.90) Mil/uL Hgb (12.0-18.0) g/dL Hct (35.0-51.0) % MCV (80.0-94.0) fl MCH (27.0-31.0) pg MCHC (33.0-37.0) g/dL RDW (11.5-14.5) % Plt Count (130-400) K/uL MPV (7.2-11.7) fl Neut % (Auto) (50.0-75.0) % Lymph % (Auto) (20.0-40.0) % Wise % (Auto) (0.0-10.0) % Eos % (Auto) (0.0-4.0) % Baso % (Auto) (0.0-2.0) % Neut # (1.8-7.0) K/uL Lymph # (1.0-4.3) K/uL Wise # (0.0-0.8) K/uL Eos # (0.0-0.7) K/uL Baso # (0.0-0.2) K/uL pCO2 (35-45) mm/Hg pO2 (80-100) mm/Hg HCO3 (21-28) mmol/L ABG pH (7.35-7.45) ABG Total CO2 (22-28) mmol/L ABG O2 Saturation (95-98) % ABG O2 Content (15-23) ML/dL ABG Base Excess (-2.0-3.0) mmol/L ABG Hemoglobin (11.7-17.4) g/dL ABG Carboxyhemoglobin (0.5-1.5) % POC ABG HHb (Measured) (0.0-5.0) % ABG Methemoglobin (0.0-3.0) % ABG O2 Capacity (16-24) mL/dL Andry Test A-a O2 Difference mm/Hg Hgb O2 Saturation (95.0-98.0) % Vent Mode Mechanical Rate FiO2 % Tidal Volume PEEP Sodium (132-148) mmol/l Potassium (3.6-5.0) MMOL/L Chloride (98-107) mmol/L Carbon Dioxide (22-30) mmol/L Anion Gap (10-20) BUN (9-20) mg/dl Creatinine (0.8-1.5) mg/dl Est GFR ( Amer) Est GFR (Non-Af Amer) POC Glucose (mg/dL) 219 H 222 H (65-110) mg/dL Random Glucose (75-110) mg/dL Calcium (8.4-10.2) mg/dL Total Bilirubin (0.2-1.3) mg/dl AST (17-59) U/L ALT (21-72) U/L Alkaline Phosphatase (38-126) U/L Total Protein (6.3-8.2) G/DL Albumin (3.5-5.0) g/dL Globulin (2.2-3.9) gm/dL Albumin/Globulin Ratio (1.0-2.1) Folate 9.8 ng/mL Blood Type Antibody Screen Crossmatch BBK History Checked Laboratory Results - last 24 hr 07/07/17 07/07/17 07/07/17 04:20 12:11 16:09 WBC RBC Hgb Hct MCV MCH MCHC RDW Plt Count MPV Neut % (Auto) Lymph % (Auto) Wise % (Auto) Eos % (Auto) Baso % (Auto) Neut # Lymph # Wise # Eos # Baso # pCO2 pO2 HCO3 ABG pH ABG Total CO2 ABG O2 Saturation ABG O2 Content ABG Base Excess ABG Hemoglobin ABG Carboxyhemoglobin POC ABG HHb (Measured) ABG Methemoglobin ABG O2 Capacity Andry Test A-a O2 Difference Hgb O2 Saturation Vent Mode Mechanical Rate FiO2 Tidal Volume PEEP Sodium Potassium Chloride Carbon Dioxide Anion Gap BUN Creatinine Est GFR ( Amer) Est GFR (Non-Af Amer) POC Glucose (mg/dL) 222 H 219 H Random Glucose Calcium Total Bilirubin AST ALT Alkaline Phosphatase Total Protein Albumin Globulin Albumin/Globulin Ratio Folate 9.8 Blood Type Antibody Screen Crossmatch BBK History Checked 07/07/17 07/08/17 07/08/17 21:27 04:00 05:00 WBC 5.1 RBC 2.11 L Hgb 6.5 L* Hct 19.8 L MCV 93.8 MCH 31.0 MCHC 33.1 RDW 15.6 H Plt Count 69 L MPV 11.6 Neut % (Auto) 73.5 Lymph % (Auto) 15.5 L Wise % (Auto) 5.5 Eos % (Auto) 4.1 H Baso % (Auto) 1.4 Neut # 3.7 Lymph # 0.8 L Wise # 0.3 Eos # 0.2 Baso # 0.1 pCO2 39 pO2 145 H HCO3 25.1 ABG pH 7.41 ABG Total CO2 25.9 ABG O2 Saturation 99.2 H ABG O2 Content 9.3 L ABG Base Excess 0.1 ABG Hemoglobin 6.5 L ABG Carboxyhemoglobin 0.8 POC ABG HHb (Measured) 0.8 ABG Methemoglobin 0.4 ABG O2 Capacity 9.4 L Andry Test Yes A-a O2 Difference 91.0 Hgb O2 Saturation 97.9 Vent Mode A/c Mechanical Rate 14 FiO2 40.0 Tidal Volume 400 PEEP 5 Sodium Potassium Chloride Carbon Dioxide Anion Gap BUN Creatinine Est GFR ( Amer) Est GFR (Non-Af Amer) POC Glucose (mg/dL) 185 H Random Glucose Calcium Total Bilirubin AST ALT Alkaline Phosphatase Total Protein Albumin Globulin Albumin/Globulin Ratio Folate Blood Type Antibody Screen Crossmatch BBK History Checked 07/08/17 07/08/17 07/08/17 05:00 05:49 07:45 WBC RBC Hgb Hct MCV MCH MCHC RDW Plt Count MPV Neut % (Auto) Lymph % (Auto) Wise % (Auto) Eos % (Auto) Baso % (Auto) Neut # Lymph # Wise # Eos # Baso # pCO2 pO2 HCO3 ABG pH ABG Total CO2 ABG O2 Saturation ABG O2 Content ABG Base Excess ABG Hemoglobin ABG Carboxyhemoglobin POC ABG HHb (Measured) ABG Methemoglobin ABG O2 Capacity Andry Test A-a O2 Difference Hgb O2 Saturation Vent Mode Mechanical Rate FiO2 Tidal Volume PEEP Sodium 142 Potassium 3.5 L Chloride 107 Carbon Dioxide 24 Anion Gap 15 BUN 65 H Creatinine 3.1 H Est GFR ( Amer) 25 Est GFR (Non-Af Amer) 20 POC Glucose (mg/dL) 154 H Random Glucose 163 H Calcium 8.4 Total Bilirubin < 0.1 L AST 16 L ALT 40 Alkaline Phosphatase 139 H Total Protein 5.2 L Albumin 2.5 L Globulin 2.6 Albumin/Globulin Ratio 1.0 Folate Blood Type A NEGATIVE Antibody Screen Negative Crossmatch See Detail BBK History Checked Patient has bt Fingerstick Blood Sugar Results: 185 <LatefHakan M - Last Filed: 07/08/17 15:30> CCU Objective - Vital Signs / Intake & Output Vital Signs (Last 4 hours): Vital Signs Temp Pulse Resp BP Pulse Ox 07/08/17 12:00 98.5 F 77 12 141/54 L 93 L Intake and Output (Last 8hrs): Intake & Output 07/08/17 07/08/17 07/08/17 06:59 14:59 22:59 Intake Total 860 Output Total 500 Balance 360 Intake: Intake, Piggyback 100 Tube Feeding 360 Free Water Flush 400 Output: Urine 500 Urethral (Salazar) 500 - Medications Active Medications: Active Medications Generic Name Dose Route Start Last Admin Trade Name Freq PRN Reason Stop Dose Admin Albuterol/Ipratropium 3 ml 06/28/17 16:00 07/08/17 15:21 Duoneb 3 Mg/0.5 Mg (3 Ml) Ud INH 3 ml RQID THOMAS Administration Amlodipine Besylate 10 mg 07/05/17 09:00 07/08/17 08:44 Norvasc PO 10 mg DAILY THOMAS Administration Bacitracin 1 applic 06/27/17 13:00 07/08/17 08:40 Bacitracin Oint TOP 1 applic TID THOMAS Administration Calcium Acetate 2,001 mg 07/05/17 08:30 07/08/17 12:13 Phoslo PO 2,001 mg 0830,1200,1830 THOMAS Administration Dextrose 0 ml 06/22/17 22:36 Dextrose 50% Inj IV STAT PRN Hypoglycemia Protocol Protocol Dextrose 0 gm 06/22/17 22:36 Glutose 15 PO ONCE PRN Hypoglycemia Protocol Protocol Enoxaparin Sodium 30 mg 07/02/17 09:00 07/08/17 09:48 Lovenox SC Not Given DAILY THOMAS Protocol Epoetin Roel 14,000 unit 07/07/17 09:00 07/07/17 09:14 Procrit SC 14,000 unit MWF THOMAS Administration Ergocalciferol 1 cap 06/24/17 10:00 07/01/17 09:01 Drisdol 50,000 Intl Units Cap PO 1 cap Q7D THOMAS Administration Glipizide 10 mg 07/07/17 16:30 07/08/17 06:40 Glucotrol PO 10 mg BIDAC THOMAS Administration Glucagon 0 mg 06/22/17 22:36 Glucagen Diagnostic Kit IM STAT PRN Hypoglycemia Protocol Protocol Hydralazine HCl 25 mg 07/02/17 01:00 07/08/17 08:40 Apresoline PO 25 mg Q8 THOMAS Administration Linezolid 600 mg in 300 mls @ 300 mls/hr 06/25/17 21:00 07/08/17 08:46 Zyvox 600mg/300ml D5w IVPB 300 mls/hr Q12 THOMAS Administration Protocol Cefepime HCl 1 gm/ Sodium 100 mls @ 100 mls/hr 06/26/17 09:00 07/08/17 08:43 Chloride IVPB 100 mls/hr DAILY THOMAS Administration Protocol Micafungin Sodium 100 mg/ 100 mls @ 100 mls/hr 07/01/17 13:45 07/07/17 12:44 Sodium Chloride IVPB 100 mls/hr DAILY THOMAS Administration Protocol Levetiracetam 500 mg/ Sodium 105 mls @ 210 mls/hr 07/04/17 21:00 07/08/17 08: 42 Chloride IVPB 210 mls/hr Q12 THOMAS Administration Insulin Human Lispro 0 units 07/07/17 16:30 07/08/17 06:39 Humalog SC Not Given ACHS THOMAS Protocol Levothyroxine Sodium 50 mcg 07/05/17 06:30 07/08/17 06:40 Synthroid PO 50 mcg DAILY@0630 THOMAS Administration Metoprolol Tartrate 5 mg 07/03/17 15:24 07/08/17 09:49 Lopressor IVP 5 mg Q6 THOMAS Administration Pantoprazole Sodium 40 mg 07/08/17 21:00 Protonix Inj IVP Q12 THOMAS Sodium Bicarbonate 1,300 mg 06/30/17 17:00 07/02/17 16:23 Sodium Bicarbonate Tab PO 1,300 mg Q8 THOMAS Administration Thiamine HCl 100 mg 06/24/17 21:30 07/08/17 08:46 Vitamin B1 Tab PO 100 mg BID THOMAS Administration - Patient Studies Lab Studies: Microbiology Studies 06/25/17 16:51 Fungal Culture - Preliminary Pleural Fluid NO FUNGUS GROWTH IN 1 WEEK. 07/06/17 19:20 Mycobacterial Culture - Preliminary Other: Please Indicate Lab Studies 07/08/17 07/08/17 07/08/17 Range/Units 12:50 12:30 07:45 WBC (4.8-10.8) K/uL RBC (4.40-5.90) Mil/uL Hgb (12.0-18.0) g/dL Hct (35.0-51.0) % MCV (80.0-94.0) fl MCH (27.0-31.0) pg MCHC (33.0-37.0) g/dL RDW (11.5-14.5) % Plt Count (130-400) K/uL MPV (7.2-11.7) fl Neut % (Auto) (50.0-75.0) % Lymph % (Auto) (20.0-40.0) % Wise % (Auto) (0.0-10.0) % Eos % (Auto) (0.0-4.0) % Baso % (Auto) (0.0-2.0) % Neut # (1.8-7.0) K/uL Lymph # (1.0-4.3) K/uL Wise # (0.0-0.8) K/uL Eos # (0.0-0.7) K/uL Baso # (0.0-0.2) K/uL PT 13.4 H (9.8-13.1) Seconds INR 1.2 (0.9-1.2) APTT 30.8 (25.6-37.1) Seconds Fibrinogen 596 H (200-400) mg/dl pCO2 (35-45) mm/Hg pO2 (80-100) mm/Hg HCO3 (21-28) mmol/L ABG pH (7.35-7.45) ABG Total CO2 (22-28) mmol/L ABG O2 Saturation (95-98) % ABG O2 Content (15-23) ML/dL ABG Base Excess (-2.0-3.0) mmol/L ABG Hemoglobin (11.7-17.4) g/dL ABG Carboxyhemoglobin (0.5-1.5) % POC ABG HHb (Measured) (0.0-5.0) % ABG Methemoglobin (0.0-3.0) % ABG O2 Capacity (16-24) mL/dL Andry Test A-a O2 Difference mm/Hg Hgb O2 Saturation (95.0-98.0) % Vent Mode Mechanical Rate FiO2 % Tidal Volume PEEP Sodium (132-148) mmol/l Potassium (3.6-5.0) MMOL/L Chloride (98-107) mmol/L Carbon Dioxide (22-30) mmol/L Anion Gap (10-20) BUN (9-20) mg/dl Creatinine (0.8-1.5) mg/dl Est GFR ( Amer) Est GFR (Non-Af Amer) POC Glucose (mg/dL) (65-110) mg/dL Random Glucose (75-110) mg/dL Calcium (8.4-10.2) mg/dL Total Bilirubin (0.2-1.3) mg/dl AST (17-59) U/L ALT (21-72) U/L Alkaline Phosphatase (38-126) U/L Total Protein (6.3-8.2) G/DL Albumin (3.5-5.0) g/dL Globulin (2.2-3.9) gm/dL Albumin/Globulin Ratio (1.0-2.1) Procalcitonin (0.19-0.49) NG/ML Urine Color Yellow (YELLOW) Urine Clarity Turbid (Clear) Urine pH 6.0 (5.0-8.0) Ur Specific Oolitic 1.012 (1.003-1.030) Urine Protein >=500 (NEGATIVE) mg/dL Urine Glucose (UA) 150 (Normal) mg/dL Urine Ketones Negative (NEGATIVE) mg/dL Urine Blood Small (NEGATIVE) Urine Nitrate Negative (NEGATIVE) Urine Bilirubin Negative (NEGATIVE) Urine Urobilinogen 0.2-1.0 (0.2-1.0) mg/dL Ur Leukocyte Esterase Neg (Negative) Justino/uL Urine RBC (Auto) 14 H (0-3) /hpf Urine Microscopic WBC 20 H (0-5) /hpf Ur Squamous Epith Cells 2 (0-5) /hpf Amorphous Sediment Occ H (<OCC) /ul Urine Bacteria Occ H (<OCC) Granular Casts (Auto) 3 (0-1) /lpf Blood Type A NEGATIVE Antibody Screen Negative Crossmatch See Detail BBK History Checked Patient has bt 07/08/17 07/08/17 07/08/17 Range/Units 05:49 05:00 05:00 WBC (4.8-10.8) K/uL RBC (4.40-5.90) Mil/uL Hgb (12.0-18.0) g/dL Hct (35.0-51.0) % MCV (80.0-94.0) fl MCH (27.0-31.0) pg MCHC (33.0-37.0) g/dL RDW (11.5-14.5) % Plt Count (130-400) K/uL MPV (7.2-11.7) fl Neut % (Auto) (50.0-75.0) % Lymph % (Auto) (20.0-40.0) % Wise % (Auto) (0.0-10.0) % Eos % (Auto) (0.0-4.0) % Baso % (Auto) (0.0-2.0) % Neut # (1.8-7.0) K/uL Lymph # (1.0-4.3) K/uL Wise # (0.0-0.8) K/uL Eos # (0.0-0.7) K/uL Baso # (0.0-0.2) K/uL PT (9.8-13.1) Seconds INR (0.9-1.2) APTT (25.6-37.1) Seconds Fibrinogen (200-400) mg/dl pCO2 (35-45) mm/Hg pO2 (80-100) mm/Hg HCO3 (21-28) mmol/L ABG pH (7.35-7.45) ABG Total CO2 (22-28) mmol/L ABG O2 Saturation (95-98) % ABG O2 Content (15-23) ML/dL ABG Base Excess (-2.0-3.0) mmol/L ABG Hemoglobin (11.7-17.4) g/dL ABG Carboxyhemoglobin (0.5-1.5) % POC ABG HHb (Measured) (0.0-5.0) % ABG Methemoglobin (0.0-3.0) % ABG O2 Capacity (16-24) mL/dL Andry Test A-a O2 Difference mm/Hg Hgb O2 Saturation (95.0-98.0) % Vent Mode Mechanical Rate FiO2 % Tidal Volume PEEP Sodium 142 (132-148) mmol/l Potassium 3.5 L (3.6-5.0) MMOL/L Chloride 107 (98-107) mmol/L Carbon Dioxide 24 (22-30) mmol/L Anion Gap 15 (10-20) BUN 65 H (9-20) mg/dl Creatinine 3.1 H (0.8-1.5) mg/dl Est GFR ( Amer) 25 Est GFR (Non-Af Amer) 20 POC Glucose (mg/dL) 154 H (65-110) mg/dL Random Glucose 163 H (75-110) mg/dL Calcium 8.4 (8.4-10.2) mg/dL Total Bilirubin < 0.1 L (0.2-1.3) mg/dl AST 16 L (17-59) U/L ALT 40 (21-72) U/L Alkaline Phosphatase 139 H (38-126) U/L Total Protein 5.2 L (6.3-8.2) G/DL Albumin 2.5 L (3.5-5.0) g/dL Globulin 2.6 (2.2-3.9) gm/dL Albumin/Globulin Ratio 1.0 (1.0-2.1) Procalcitonin 0.97 H (0.19-0.49) NG/ML Urine Color (YELLOW) Urine Clarity (Clear) Urine pH (5.0-8.0) Ur Specific Oolitic (1.003-1.030) Urine Protein (NEGATIVE) mg/dL Urine Glucose (UA) (Normal) mg/dL Urine Ketones (NEGATIVE) mg/dL Urine Blood (NEGATIVE) Urine Nitrate (NEGATIVE) Urine Bilirubin (NEGATIVE) Urine Urobilinogen (0.2-1.0) mg/dL Ur Leukocyte Esterase (Negative) Justino/uL Urine RBC (Auto) (0-3) /hpf Urine Microscopic WBC (0-5) /hpf Ur Squamous Epith Cells (0-5) /hpf Amorphous Sediment (<OCC) /ul Urine Bacteria (<OCC) Granular Casts (Auto) (0-1) /lpf Blood Type Antibody Screen Crossmatch BBK History Checked 07/08/17 07/08/17 07/07/17 Range/Units 05:00 04:00 21:27 WBC 5.1 (4.8-10.8) K/uL RBC 2.11 L (4.40-5.90) Mil/uL Hgb 6.5 L* (12.0-18.0) g/dL Hct 19.8 L (35.0-51.0) % MCV 93.8 (80.0-94.0) fl MCH 31.0 (27.0-31.0) pg MCHC 33.1 (33.0-37.0) g/dL RDW 15.6 H (11.5-14.5) % Plt Count 69 L (130-400) K/uL MPV 11.6 (7.2-11.7) fl Neut % (Auto) 73.5 (50.0-75.0) % Lymph % (Auto) 15.5 L (20.0-40.0) % Wise % (Auto) 5.5 (0.0-10.0) % Eos % (Auto) 4.1 H (0.0-4.0) % Baso % (Auto) 1.4 (0.0-2.0) % Neut # 3.7 (1.8-7.0) K/uL Lymph # 0.8 L (1.0-4.3) K/uL Wise # 0.3 (0.0-0.8) K/uL Eos # 0.2 (0.0-0.7) K/uL Baso # 0.1 (0.0-0.2) K/uL PT (9.8-13.1) Seconds INR (0.9-1.2) APTT (25.6-37.1) Seconds Fibrinogen (200-400) mg/dl pCO2 39 (35-45) mm/Hg pO2 145 H (80-100) mm/Hg HCO3 25.1 (21-28) mmol/L ABG pH 7.41 (7.35-7.45) ABG Total CO2 25.9 (22-28) mmol/L ABG O2 Saturation 99.2 H (95-98) % ABG O2 Content 9.3 L (15-23) ML/dL ABG Base Excess 0.1 (-2.0-3.0) mmol/L ABG Hemoglobin 6.5 L (11.7-17.4) g/dL ABG Carboxyhemoglobin 0.8 (0.5-1.5) % POC ABG HHb (Measured) 0.8 (0.0-5.0) % ABG Methemoglobin 0.4 (0.0-3.0) % ABG O2 Capacity 9.4 L (16-24) mL/dL Andry Test Yes A-a O2 Difference 91.0 mm/Hg Hgb O2 Saturation 97.9 (95.0-98.0) % Vent Mode A/c Mechanical Rate 14 FiO2 40.0 % Tidal Volume 400 PEEP 5 Sodium (132-148) mmol/l Potassium (3.6-5.0) MMOL/L Chloride (98-107) mmol/L Carbon Dioxide (22-30) mmol/L Anion Gap (10-20) BUN (9-20) mg/dl Creatinine (0.8-1.5) mg/dl Est GFR ( Amer) Est GFR (Non-Af Amer) POC Glucose (mg/dL) 185 H (65-110) mg/dL Random Glucose (75-110) mg/dL Calcium (8.4-10.2) mg/dL Total Bilirubin (0.2-1.3) mg/dl AST (17-59) U/L ALT (21-72) U/L Alkaline Phosphatase (38-126) U/L Total Protein (6.3-8.2) G/DL Albumin (3.5-5.0) g/dL Globulin (2.2-3.9) gm/dL Albumin/Globulin Ratio (1.0-2.1) Procalcitonin (0.19-0.49) NG/ML Urine Color (YELLOW) Urine Clarity (Clear) Urine pH (5.0-8.0) Ur Specific Oolitic (1.003-1.030) Urine Protein (NEGATIVE) mg/dL Urine Glucose (UA) (Normal) mg/dL Urine Ketones (NEGATIVE) mg/dL Urine Blood (NEGATIVE) Urine Nitrate (NEGATIVE) Urine Bilirubin (NEGATIVE) Urine Urobilinogen (0.2-1.0) mg/dL Ur Leukocyte Esterase (Negative) Justino/uL Urine RBC (Auto) (0-3) /hpf Urine Microscopic WBC (0-5) /hpf Ur Squamous Epith Cells (0-5) /hpf Amorphous Sediment (<OCC) /ul Urine Bacteria (<OCC) Granular Casts (Auto) (0-1) /lpf Blood Type Antibody Screen Crossmatch BBK History Checked 07/07/17 07/06/17 Range/Units 16:09 15:15 WBC (4.8-10.8) K/uL RBC (4.40-5.90) Mil/uL Hgb (12.0-18.0) g/dL Hct (35.0-51.0) % MCV (80.0-94.0) fl MCH (27.0-31.0) pg MCHC (33.0-37.0) g/dL RDW (11.5-14.5) % Plt Count (130-400) K/uL MPV (7.2-11.7) fl Neut % (Auto) (50.0-75.0) % Lymph % (Auto) (20.0-40.0) % Wise % (Auto) (0.0-10.0) % Eos % (Auto) (0.0-4.0) % Baso % (Auto) (0.0-2.0) % Neut # (1.8-7.0) K/uL Lymph # (1.0-4.3) K/uL Wise # (0.0-0.8) K/uL Eos # (0.0-0.7) K/uL Baso # (0.0-0.2) K/uL PT (9.8-13.1) Seconds INR (0.9-1.2) APTT (25.6-37.1) Seconds Fibrinogen (200-400) mg/dl pCO2 (35-45) mm/Hg pO2 (80-100) mm/Hg HCO3 (21-28) mmol/L ABG pH (7.35-7.45) ABG Total CO2 (22-28) mmol/L ABG O2 Saturation (95-98) % ABG O2 Content (15-23) ML/dL ABG Base Excess (-2.0-3.0) mmol/L ABG Hemoglobin (11.7-17.4) g/dL ABG Carboxyhemoglobin (0.5-1.5) % POC ABG HHb (Measured) (0.0-5.0) % ABG Methemoglobin (0.0-3.0) % ABG O2 Capacity (16-24) mL/dL Andry Test A-a O2 Difference mm/Hg Hgb O2 Saturation (95.0-98.0) % Vent Mode Mechanical Rate FiO2 % Tidal Volume PEEP Sodium (132-148) mmol/l Potassium (3.6-5.0) MMOL/L Chloride (98-107) mmol/L Carbon Dioxide (22-30) mmol/L Anion Gap (10-20) BUN (9-20) mg/dl Creatinine (0.8-1.5) mg/dl Est GFR ( Amer) Est GFR (Non-Af Amer) POC Glucose (mg/dL) 219 H (65-110) mg/dL Random Glucose (75-110) mg/dL Calcium (8.4-10.2) mg/dL Total Bilirubin (0.2-1.3) mg/dl AST (17-59) U/L ALT (21-72) U/L Alkaline Phosphatase (38-126) U/L Total Protein (6.3-8.2) G/DL Albumin (3.5-5.0) g/dL Globulin (2.2-3.9) gm/dL Albumin/Globulin Ratio (1.0-2.1) Procalcitonin (0.19-0.49) NG/ML Urine Color (YELLOW) Urine Clarity (Clear) Urine pH (5.0-8.0) Ur Specific Oolitic (1.003-1.030) Urine Protein (NEGATIVE) mg/dL Urine Glucose (UA) (Normal) mg/dL Urine Ketones (NEGATIVE) mg/dL Urine Blood (NEGATIVE) Urine Nitrate (NEGATIVE) Urine Bilirubin (NEGATIVE) Urine Urobilinogen (0.2-1.0) mg/dL Ur Leukocyte Esterase (Negative) Justino/uL Urine RBC (Auto) (0-3) /hpf Urine Microscopic WBC (0-5) /hpf Ur Squamous Epith Cells (0-5) /hpf Amorphous Sediment (<OCC) /ul Urine Bacteria (<OCC) Granular Casts (Auto) (0-1) /lpf Blood Type A NEGATIVE Antibody Screen Negative Crossmatch See Detail BBK History Checked Patient has bt Laboratory Results - last 24 hr 07/06/17 07/07/17 07/07/17 15:15 16:09 21:27 WBC RBC Hgb Hct MCV MCH MCHC RDW Plt Count MPV Neut % (Auto) Lymph % (Auto) Wise % (Auto) Eos % (Auto) Baso % (Auto) Neut # Lymph # Wise # Eos # Baso # PT INR APTT Fibrinogen pCO2 pO2 HCO3 ABG pH ABG Total CO2 ABG O2 Saturation ABG O2 Content ABG Base Excess ABG Hemoglobin ABG Carboxyhemoglobin POC ABG HHb (Measured) ABG Methemoglobin ABG O2 Capacity Andry Test A-a O2 Difference Hgb O2 Saturation Vent Mode Mechanical Rate FiO2 Tidal Volume PEEP Sodium Potassium Chloride Carbon Dioxide Anion Gap BUN Creatinine Est GFR ( Amer) Est GFR (Non-Af Amer) POC Glucose (mg/dL) 219 H 185 H Random Glucose Calcium Total Bilirubin AST ALT Alkaline Phosphatase Total Protein Albumin Globulin Albumin/Globulin Ratio Procalcitonin Urine Color Urine Clarity Urine pH Ur Specific Oolitic Urine Protein Urine Glucose (UA) Urine Ketones Urine Blood Urine Nitrate Urine Bilirubin Urine Urobilinogen Ur Leukocyte Esterase Urine RBC (Auto) Urine Microscopic WBC Ur Squamous Epith Cells Amorphous Sediment Urine Bacteria Granular Casts (Auto) Blood Type A NEGATIVE Antibody Screen Negative Crossmatch See Detail BBK History Checked Patient has bt 07/08/17 07/08/17 07/08/17 04:00 05:00 05:00 WBC 5.1 RBC 2.11 L Hgb 6.5 L* Hct 19.8 L MCV 93.8 MCH 31.0 MCHC 33.1 RDW 15.6 H Plt Count 69 L MPV 11.6 Neut % (Auto) 73.5 Lymph % (Auto) 15.5 L Wise % (Auto) 5.5 Eos % (Auto) 4.1 H Baso % (Auto) 1.4 Neut # 3.7 Lymph # 0.8 L Wise # 0.3 Eos # 0.2 Baso # 0.1 PT INR APTT Fibrinogen pCO2 39 pO2 145 H HCO3 25.1 ABG pH 7.41 ABG Total CO2 25.9 ABG O2 Saturation 99.2 H ABG O2 Content 9.3 L ABG Base Excess 0.1 ABG Hemoglobin 6.5 L ABG Carboxyhemoglobin 0.8 POC ABG HHb (Measured) 0.8 ABG Methemoglobin 0.4 ABG O2 Capacity 9.4 L Andry Test Yes A-a O2 Difference 91.0 Hgb O2 Saturation 97.9 Vent Mode A/c Mechanical Rate 14 FiO2 40.0 Tidal Volume 400 PEEP 5 Sodium 142 Potassium 3.5 L Chloride 107 Carbon Dioxide 24 Anion Gap 15 BUN 65 H Creatinine 3.1 H Est GFR ( Amer) 25 Est GFR (Non-Af Amer) 20 POC Glucose (mg/dL) Random Glucose 163 H Calcium 8.4 Total Bilirubin < 0.1 L AST 16 L ALT 40 Alkaline Phosphatase 139 H Total Protein 5.2 L Albumin 2.5 L Globulin 2.6 Albumin/Globulin Ratio 1.0 Procalcitonin Urine Color Urine Clarity Urine pH Ur Specific Oolitic Urine Protein Urine Glucose (UA) Urine Ketones Urine Blood Urine Nitrate Urine Bilirubin Urine Urobilinogen Ur Leukocyte Esterase Urine RBC (Auto) Urine Microscopic WBC Ur Squamous Epith Cells Amorphous Sediment Urine Bacteria Granular Casts (Auto) Blood Type Antibody Screen Crossmatch BBK History Checked 07/08/17 07/08/17 07/08/17 05:00 05:49 07:45 WBC RBC Hgb Hct MCV MCH MCHC RDW Plt Count MPV Neut % (Auto) Lymph % (Auto) Wise % (Auto) Eos % (Auto) Baso % (Auto) Neut # Lymph # Wise # Eos # Baso # PT INR APTT Fibrinogen pCO2 pO2 HCO3 ABG pH ABG Total CO2 ABG O2 Saturation ABG O2 Content ABG Base Excess ABG Hemoglobin ABG Carboxyhemoglobin POC ABG HHb (Measured) ABG Methemoglobin ABG O2 Capacity Andry Test A-a O2 Difference Hgb O2 Saturation Vent Mode Mechanical Rate FiO2 Tidal Volume PEEP Sodium Potassium Chloride Carbon Dioxide Anion Gap BUN Creatinine Est GFR ( Amer) Est GFR (Non-Af Amer) POC Glucose (mg/dL) 154 H Random Glucose Calcium Total Bilirubin AST ALT Alkaline Phosphatase Total Protein Albumin Globulin Albumin/Globulin Ratio Procalcitonin 0.97 H Urine Color Urine Clarity Urine pH Ur Specific Oolitic Urine Protein Urine Glucose (UA) Urine Ketones Urine Blood Urine Nitrate Urine Bilirubin Urine Urobilinogen Ur Leukocyte Esterase Urine RBC (Auto) Urine Microscopic WBC Ur Squamous Epith Cells Amorphous Sediment Urine Bacteria Granular Casts (Auto) Blood Type A NEGATIVE Antibody Screen Negative Crossmatch See Detail BBK History Checked Patient has bt 07/08/17 07/08/17 12:30 12:50 WBC RBC Hgb Hct MCV MCH MCHC RDW Plt Count MPV Neut % (Auto) Lymph % (Auto) Wise % (Auto) Eos % (Auto) Baso % (Auto) Neut # Lymph # Wise # Eos # Baso # PT 13.4 H INR 1.2 APTT 30.8 Fibrinogen 596 H pCO2 pO2 HCO3 ABG pH ABG Total CO2 ABG O2 Saturation ABG O2 Content ABG Base Excess ABG Hemoglobin ABG Carboxyhemoglobin POC ABG HHb (Measured) ABG Methemoglobin ABG O2 Capacity Andry Test A-a O2 Difference Hgb O2 Saturation Vent Mode Mechanical Rate FiO2 Tidal Volume PEEP Sodium Potassium Chloride Carbon Dioxide Anion Gap BUN Creatinine Est GFR ( Amer) Est GFR (Non-Af Amer) POC Glucose (mg/dL) Random Glucose Calcium Total Bilirubin AST ALT Alkaline Phosphatase Total Protein Albumin Globulin Albumin/Globulin Ratio Procalcitonin Urine Color Yellow Urine Clarity Turbid Urine pH 6.0 Ur Specific Oolitic 1.012 Urine Protein >=500 Urine Glucose (UA) 150 Urine Ketones Negative Urine Blood Small Urine Nitrate Negative Urine Bilirubin Negative Urine Urobilinogen 0.2-1.0 Ur Leukocyte Esterase Neg Urine RBC (Auto) 14 H Urine Microscopic WBC 20 H Ur Squamous Epith Cells 2 Amorphous Sediment Occ H Urine Bacteria Occ H Granular Casts (Auto) 3 Blood Type Antibody Screen Crossmatch BBK History Checked Attending/Attestation - Attestation I have personally seen and examined this patient.: Yes I have fully participated in the care of the patient.: Yes I have reviewed all pertinent clinical information: Yes Notes (Text): 07/08/17 15:29 Today: Saturday, July 08, 2017 The patient was Seen and examined by me at the bedside with ICU team, Medical records reviewed and Management issues were discussed and formulated with the house staff. Events reviewed I have reviewed all the relevant clinical, laboratory, hemodynamic, radiographic data and medications Pain issues, skin care, head of the bed elevation, glycemic control were addressed. I concur with resident's assessment and plan of care as transcribed in Dr. Magana note.
--- NOTE | 2017-07-08 12:07 | RAD ---
HISTORY: Pleural effusion COMPARISON: 07/07/2017. FINDINGS: The endotracheal tube is slightly low in position and terminates 1 cm proximal to the endy. The nasogastric tube terminates in the stomach. LUNGS: The right lung is well inflated and clear. There is interval mild improvement in left lower lobe airspace disease. PLEURA: Interval mild improvement in left pleural effusion. No right pleural effusion. No pneumothorax. CARDIOVASCULAR: Normal. OSSEOUS STRUCTURES: No significant abnormalities. VISUALIZED UPPER ABDOMEN: Normal. OTHER FINDINGS: None. IMPRESSION: Improving left pleural effusion and and lower lobe atelectasis/ pneumonia. Endotracheal tube is low in position and terminates 1 cm proximal to the endy. Repositioning is advised.
[2017-07-08 12:46] LABS: GRANULAR CAST 3 /lpf (0-1); SQUAMOUS EPITHIAL 2 /hpf (0-5); URINE AMORPHOUS SEDIMENT OCC /ul (<OCC); URINE BACTERIA OCC (<OCC); URINE BILIRUBIN NEGATIVE (NEGATIVE); URINE BLOOD SMALL (NEGATIVE); URINE CLARITY TURBID (Clear); URINE COLOR YELLOW (YELLOW); URINE GLUCOSE (UA) 150 mg/dL (Normal); URINE LEUKOCYTE ESTERASE NEG Leu/uL (Negative); URINE PROTEIN >=500 mg/dL (NEGATIVE); URINE UROBILINOGEN 0.2-1.0 mg/dL (0.2-1.0)
--- NOTE | 2017-07-08 13:09 | CP.PCM.PN ---
Subjective - Date & Time of Evaluation Date of Evaluation: 07/08/17 Time of Evaluation: 12:00 - Subjective Subjective: Vented Objective - Vital Signs/Intake and Output Vital Signs (last 24 hours): Temp Pulse Resp BP Pulse Ox 98.5 F 77 12 141/54 L 93 L 07/08/17 12:00 07/08/17 12:00 07/08/17 12:00 07/08/17 12:00 07/08/17 12:00 Intake and Output: 07/08/17 07/08/17 06:59 18:59 Intake Total 1740 Output Total 500 Balance 1240 - Medications Medications: Current Medications Albuterol/Ipratropium (Duoneb 3 Mg/0.5 Mg (3 Ml) Ud) 3 ml INH RQID [facility] Last Admin: 07/08/17 11:08 Dose: 3 ml Amlodipine Besylate (Norvasc) 10 mg PO DAILY [facility] Last Admin: 07/08/17 08:44 Dose: 10 mg Bacitracin (Bacitracin Oint) 1 applic TOP TID [facility] Last Admin: 07/08/17 08:40 Dose: 1 applic Calcium Acetate (Phoslo) 2,001 mg PO 0830,1200,1830 [facility] Last Admin: 07/08/17 12:13 Dose: 2,001 mg Dextrose (Dextrose 50% Inj) 0 ml IV STAT PRN; Protocol PRN Reason: Hypoglycemia Protocol Dextrose (Glutose 15) 0 gm PO ONCE PRN; Protocol PRN Reason: Hypoglycemia Protocol Enoxaparin Sodium (Lovenox) 30 mg SC DAILY [facility] PRN Reason: Protocol Last Admin: 07/08/17 09:48 Dose: Not Given Epoetin Roel (Procrit) 14,000 unit SC MWF [facility] Last Admin: 07/07/17 09:14 Dose: 14,000 unit Ergocalciferol (Drisdol 50,000 Intl Units Cap) 1 cap PO Q7D [facility] Last Admin: 07/01/17 09:01 Dose: 1 cap Glipizide (Glucotrol) 10 mg PO BIDAC [facility] Last Admin: 07/08/17 06:40 Dose: 10 mg Glucagon (Glucagen Diagnostic Kit) 0 mg IM STAT PRN; Protocol PRN Reason: Hypoglycemia Protocol Hydralazine HCl (Apresoline) 25 mg PO Q8 [facility] Last Admin: 07/08/17 08:40 Dose: 25 mg Linezolid (Zyvox 600mg/300ml D5w) 600 mg in 300 mls @ 300 mls/hr IVPB Q12 [facility] PRN Reason: Protocol Last Admin: 07/08/17 08:46 Dose: 300 mls/hr Cefepime HCl 1 gm/ Sodium (Chloride) 100 mls @ 100 mls/hr IVPB DAILY [facility] PRN Reason: Protocol Last Admin: 07/08/17 08:43 Dose: 100 mls/hr Micafungin Sodium 100 mg/ (Sodium Chloride) 100 mls @ 100 mls/hr IVPB DAILY [facility] PRN Reason: Protocol Last Admin: 07/07/17 12:44 Dose: 100 mls/hr Levetiracetam 500 mg/ Sodium (Chloride) 105 mls @ 210 mls/hr IVPB Q12 [facility] Last Admin: 07/08/17 08:42 Dose: 210 mls/hr Insulin Human Lispro (Humalog) 0 units SC ACHS [facility] PRN Reason: Protocol Last Admin: 07/08/17 06:39 Dose: Not Given Levothyroxine Sodium (Synthroid) 50 mcg PO DAILY@0630 [facility] Last Admin: 07/08/17 06:40 Dose: 50 mcg Metoprolol Tartrate (Lopressor) 5 mg IVP Q6 [facility] Last Admin: 07/08/17 09:49 Dose: 5 mg Pantoprazole Sodium (Protonix Inj) 40 mg IVP Q12 [facility] Sodium Bicarbonate (Sodium Bicarbonate Tab) 1,300 mg PO Q8 [facility] Last Admin: 07/02/17 16:23 Dose: 1,300 mg Thiamine HCl (Vitamin B1 Tab) 100 mg PO BID [facility] Last Admin: 07/08/17 08:46 Dose: 100 mg - Labs Labs: 07/08/17 05:00 07/08/17 05:00 PT 12.9 Seconds (9.8-13.1) 07/04/17 04:40 INR 1.2 (0.9-1.2) 07/04/17 04:40 APTT 35.9 Seconds (25.6-37.1) 07/04/17 04:40 - Head Exam Head Exam: ATRAUMATIC - Eye Exam Eye Exam: Normal appearance - ENT Exam ENT Exam: Mucous Membranes Dry - Respiratory Exam Respiratory Exam: Decreased Breath Sounds - Cardiovascular Exam Cardiovascular Exam: +S1, +S2 - GI/Abdominal Exam GI & Abdominal Exam: Normal Bowel Sounds Assessment and Plan (1) Thrombocytopenia Assessment & Plan: suspect sepsis related no current DIC Status: Acute (2) Anemia Assessment & Plan: hypoproliferative erythroid response from renal disease on EPO transfusion support PRN no iron/b12/folate deficiency Status: Chronic (3) MGUS (monoclonal gammopathy of unknown significance) Assessment & Plan: by bone marrow Status: Acute
[2017-07-08] MEDS ORDERED: Lidocaine 2% w Epi 1:100,000 Inj IJ ONE (13:11)
[2017-07-08] MEDS ORDERED: Lidocaine 1% Inj (20ml) ONE (13:16)
[2017-07-08 13:19] LABS: INR 1.2 (0.9-1.2); PARTIAL THROMBOPLASTIN TIME 30.8 Seconds (25.6-37.1); PROTHROMBIN TIME 13.4 Seconds (9.8-13.1)
--- NOTE | 2017-07-08 13:46 | PN ---
DATE: 07/08/17 ROOM: 433, ICU This is a 66-year-old male with recent acute respiratory failure with underlying pleural effusion and has since then been extubated and is improving clinically and hemodynamically as noted. He also has recent uncontrolled type 2 diabetes with improving glycemic fluctuations after the initiation of oral hypoglycemic therapy as given. His glucose values have ranged from 154 to 185 mg/dL. The latest chemistry showed a BUN of 65, sodium 142, potassium 3.5, chloride 107, CO2 of 24, glucose 163 and creatinine 3.1. So at this time, we will continue the same oral hypoglycemic drug therapy as given with glipizide given as 10 mg b.i.d. before meals as ordered. He is also being managed for recent early hypothyroidism with superimposed acute sick euthyroid syndrome and has been started on a low-dose levothyroxine replacement therapy, which he is tolerating fairly well at this time. The latest thyroid study showed a T4 of 5.53 with a TSH of 5.55 and a free T4 of 0.7. So at this time, we will continue levothyroxine also given as 50 mcg once daily as ordered. We will titrate incremental as indicated to optimize metabolic control. We will follow. Bettina Mann MD
--- NOTE | 2017-07-08 14:21 | CP.PCM.CON ---
History of Present Illness - History of Present Illness History of Present Illness: CT surgery consult note for Dr. Hannah Vila, PGY-1 Pt S & E at bedside. Pt intubated, unable to obtain ROS. History as per EMR/ ICU attending. 66M w/PMH sig for recurrent Left pleural effusion consulted for chest tube placement of same. Pt originally admitted for generalized weakness, developed respiratory distress and intubated/moved to ICU for further care. Pt with recurrent left pleural effusions requiring multiple thoracentesis. PMH: HTN, DM, CKD stage 3, depression, L pleural effusion, nephrotic syndrome, Anemia PSH: L renal bx, hx thoracentesis All: NKDA SH: Denies ETOH or illicit drug use; admits to tobacco use; homeless Review of Systems - Review of Systems Systems not reviewed;Unavailable: Intubated Past Patient History - Infectious Disease Hx of Infectious Diseases: None - Tetanus Immunizations Tetanus Immunization: Unknown - Past Medical History & Family History Past Medical History?: Yes - Past Social History Alcohol: None Drugs: Denies - CARDIAC Hx Cardiac Disorders: Yes Hx Congestive Heart Failure: Yes Hx Hypercholesterolemia: No Hx Hypertension: Yes - PULMONARY Hx Chronic Obstructive Pulmonary Disease (COPD): No - NEUROLOGICAL HX Cerebrovascular Accident: No - HEENT Hx HEENT Problems: No - RENAL Hx Renal Failure: Yes - ENDOCRINE/METABOLIC Hx Diabetes Mellitus Type 1: No Hx Diabetes Mellitus Type 2: Yes Hx Hypothyroidism: No - HEMATOLOGICAL/ONCOLOGICAL Hx Anemia: Yes Hx Human Immunodeficiency Virus (HIV): No Hx Sickle Cell Disease: No - INTEGUMENTARY Hx Dermatological Problems: No - MUSCULOSKELETAL/RHEUMATOLOGICAL Hx Arthritis: No Hx Rheumatoid Arthritis: No - GASTROINTESTINAL Hx Crohn's Disease: No Hx Diverticulitis: No Hx Gall Bladder Disease: No Hx Gastritis: No Hx Pancreatitis: No - GENITOURINARY/GYNECOLOGICAL Hx Genitourinary Disorders: No - PSYCHIATRIC Hx Anxiety: Yes Hx Bipolar Disorder: Yes Hx Depression: Yes Hx Paranoia: No Hx Post Traumatic Stress Disorder: No Hx Schizophrenia: No - SURGICAL HISTORY Hx Surgeries: No - ANESTHESIA Hx Anesthesia: Yes Hx Anesthesia Reactions: No Hx Malignant Hyperthermia: No Meds Allergies/Adverse Reactions: Allergies Allergy/AdvReac Type Severity Reaction Status Date / Time No Known Allergies Allergy Verified 05/21/17 16:02 - Medications Medications: Current Medications Albuterol/Ipratropium (Duoneb 3 Mg/0.5 Mg (3 Ml) Ud) 3 ml INH RQID [facility] Last Admin: 07/08/17 11:08 Dose: 3 ml Amlodipine Besylate (Norvasc) 10 mg PO DAILY [facility] Last Admin: 07/08/17 08:44 Dose: 10 mg Bacitracin (Bacitracin Oint) 1 applic TOP TID [facility] Last Admin: 07/08/17 08:40 Dose: 1 applic Calcium Acetate (Phoslo) 2,001 mg PO 0830,1200,1830 [facility] Last Admin: 07/08/17 12:13 Dose: 2,001 mg Dextrose (Dextrose 50% Inj) 0 ml IV STAT PRN; Protocol PRN Reason: Hypoglycemia Protocol Dextrose (Glutose 15) 0 gm PO ONCE PRN; Protocol PRN Reason: Hypoglycemia Protocol Enoxaparin Sodium (Lovenox) 30 mg SC DAILY [facility] PRN Reason: Protocol Last Admin: 07/08/17 09:48 Dose: Not Given Epoetin Roel (Procrit) 14,000 unit SC MWF [facility] Last Admin: 07/07/17 09:14 Dose: 14,000 unit Ergocalciferol (Drisdol 50,000 Intl Units Cap) 1 cap PO Q7D [facility] Last Admin: 07/01/17 09:01 Dose: 1 cap Glipizide (Glucotrol) 10 mg PO BIDAC [facility] Last Admin: 07/08/17 06:40 Dose: 10 mg Glucagon (Glucagen Diagnostic Kit) 0 mg IM STAT PRN; Protocol PRN Reason: Hypoglycemia Protocol Hydralazine HCl (Apresoline) 25 mg PO Q8 [facility] Last Admin: 07/08/17 08:40 Dose: 25 mg Linezolid (Zyvox 600mg/300ml D5w) 600 mg in 300 mls @ 300 mls/hr IVPB Q12 [facility] PRN Reason: Protocol Last Admin: 07/08/17 08:46 Dose: 300 mls/hr Cefepime HCl 1 gm/ Sodium (Chloride) 100 mls @ 100 mls/hr IVPB DAILY [facility] PRN Reason: Protocol Last Admin: 07/08/17 08:43 Dose: 100 mls/hr Micafungin Sodium 100 mg/ (Sodium Chloride) 100 mls @ 100 mls/hr IVPB DAILY [facility] PRN Reason: Protocol Last Admin: 07/07/17 12:44 Dose: 100 mls/hr Levetiracetam 500 mg/ Sodium (Chloride) 105 mls @ 210 mls/hr IVPB Q12 [facility] Last Admin: 07/08/17 08:42 Dose: 210 mls/hr Insulin Human Lispro (Humalog) 0 units SC ACHS [facility] PRN Reason: Protocol Last Admin: 07/08/17 06:39 Dose: Not Given Levothyroxine Sodium (Synthroid) 50 mcg PO DAILY@0630 [facility] Last Admin: 07/08/17 06:40 Dose: 50 mcg Metoprolol Tartrate (Lopressor) 5 mg IVP Q6 [facility] Last Admin: 07/08/17 09:49 Dose: 5 mg Pantoprazole Sodium (Protonix Inj) 40 mg IVP Q12 [facility] Sodium Bicarbonate (Sodium Bicarbonate Tab) 1,300 mg PO Q8 [facility] Last Admin: 07/02/17 16:23 Dose: 1,300 mg Thiamine HCl (Vitamin B1 Tab) 100 mg PO BID [facility] Last Admin: 07/08/17 08:46 Dose: 100 mg Physical Exam - Constitutional Appears: Non-toxic, No Acute Distress - Head Exam Head Exam: ATRAUMATIC, NORMAL INSPECTION, NORMOCEPHALIC - Eye Exam Eye Exam: EOMI, Normal appearance - ENT Exam ENT Exam: Mucous Membranes Moist Additional comments: ET tube in place - Neck Exam Neck exam: Positive for: Normal Inspection - Respiratory Exam Respiratory Exam: NORMAL BREATHING PATTERN (on mechanical vent) - Cardiovascular Exam Cardiovascular Exam: REGULAR RHYTHM, +S1, +S2 - GI/Abdominal Exam GI & Abdominal Exam: Soft. absent: Tenderness - Extremities Exam Extremities exam: Positive for: normal inspection - Neurological Exam Neurological exam: Alert Additional comments: intubated, non verbal - Psychiatric Exam Additional comments: unable to assess, intubated/non verbal - Skin Skin Exam: Dry, Normal Color, Warm Results - Vital Signs Recent Vital Signs: Last Vital Signs Temp 98.5 F 07/08/17 12:00 Pulse 77 07/08/17 12:00 Resp 12 07/08/17 12:00 BP 141/54 L 07/08/17 12:00 Pulse Ox 93 L 07/08/17 12:00 - Labs Result Diagrams: 07/08/17 05:00 07/08/17 05:00 Labs: Laboratory Results - last 24 hr 01/01/1407/07/17 07/07/17 15:15 16:09 21:27 WBC RBC Hgb Hct MCV MCH MCHC RDW Plt Count MPV Neut % (Auto) Lymph % (Auto) [place] % (Auto) Eos % (Auto) Baso % (Auto) Neut # Lymph # [place] # Eos # Baso # PT INR APTT Fibrinogen pCO2 pO2 HCO3 ABG pH ABG Total CO2 ABG O2 Saturation ABG O2 Content ABG Base Excess ABG Hemoglobin ABG Carboxyhemoglobin POC ABG HHb (Measured) ABG Methemoglobin ABG O2 Capacity Andry Test A-a O2 Difference Hgb O2 Saturation Vent Mode Mechanical Rate FiO2 Tidal Volume PEEP Sodium Potassium Chloride Carbon Dioxide Anion Gap BUN Creatinine Est GFR ( Amer) Est GFR (Non-Af Amer) POC Glucose (mg/dL) 219 H 185 H Random Glucose Calcium Total Bilirubin AST ALT Alkaline Phosphatase Total Protein Albumin Globulin Albumin/Globulin Ratio Procalcitonin Urine Color Urine Clarity Urine pH Ur Specific [place] Urine Protein Urine Glucose (UA) Urine Ketones Urine Blood Urine Nitrate Urine Bilirubin Urine Urobilinogen Ur Leukocyte Esterase Urine RBC (Auto) Urine Microscopic WBC Ur Squamous Epith Cells Amorphous Sediment Urine Bacteria Granular Casts (Auto) Blood Type A NEGATIVE Antibody Screen Negative Crossmatch See Detail BBK History Checked Patient has bt 07/08/17 07/08/17 07/08/17 04:00 05:00 05:00 WBC 5.1 RBC 2.11 L Hgb 6.5 L* Hct 19.8 L MCV 93.8 MCH 31.0 MCHC 33.1 RDW 15.6 H Plt Count 69 L MPV 11.6 Neut % (Auto) 73.5 Lymph % (Auto) 15.5 L [place] % (Auto) 5.5 Eos % (Auto) 4.1 H Baso % (Auto) 1.4 Neut # 3.7 Lymph # 0.8 L [place] # 0.3 Eos # 0.2 Baso # 0.1 PT INR APTT Fibrinogen pCO2 39 pO2 145 H HCO3 25.1 ABG pH 7.41 ABG Total CO2 25.9 ABG O2 Saturation 99.2 H ABG O2 Content 9.3 L ABG Base Excess 0.1 ABG Hemoglobin 6.5 L ABG Carboxyhemoglobin 0.8 POC ABG HHb (Measured) 0.8 ABG Methemoglobin 0.4 ABG O2 Capacity 9.4 L Andry Test Yes A-a O2 Difference 91.0 Hgb O2 Saturation 97.9 Vent Mode A/c Mechanical Rate 14 FiO2 40.0 Tidal Volume 400 PEEP 5 Sodium 142 Potassium 3.5 L Chloride 107 Carbon Dioxide 24 Anion Gap 15 BUN 65 H Creatinine 3.1 H Est GFR ( Amer) 25 Est GFR (Non-Af Amer) 20 POC Glucose (mg/dL) Random Glucose 163 H Calcium 8.4 Total Bilirubin < 0.1 L AST 16 L ALT 40 Alkaline Phosphatase 139 H Total Protein 5.2 L Albumin 2.5 L Globulin 2.6 Albumin/Globulin Ratio 1.0 Procalcitonin Urine Color Urine Clarity Urine pH Ur Specific [place] Urine Protein Urine Glucose (UA) Urine Ketones Urine Blood Urine Nitrate Urine Bilirubin Urine Urobilinogen Ur Leukocyte Esterase Urine RBC (Auto) Urine Microscopic WBC Ur Squamous Epith Cells Amorphous Sediment Urine Bacteria Granular Casts (Auto) Blood Type Antibody Screen Crossmatch BBK History Checked 07/08/17 07/08/17 07/08/17 05:00 05:49 07:45 WBC RBC Hgb Hct MCV MCH MCHC RDW Plt Count MPV Neut % (Auto) Lymph % (Auto) [place] % (Auto) Eos % (Auto) Baso % (Auto) Neut # Lymph # [place] # Eos # Baso # PT INR APTT Fibrinogen pCO2 pO2 HCO3 ABG pH ABG Total CO2 ABG O2 Saturation ABG O2 Content ABG Base Excess ABG Hemoglobin ABG Carboxyhemoglobin POC ABG HHb (Measured) ABG Methemoglobin ABG O2 Capacity Andry Test A-a O2 Difference Hgb O2 Saturation Vent Mode Mechanical Rate FiO2 Tidal Volume PEEP Sodium Potassium Chloride Carbon Dioxide Anion Gap BUN Creatinine Est GFR ( Amer) Est GFR (Non-Af Amer) POC Glucose (mg/dL) 154 H Random Glucose Calcium Total Bilirubin AST ALT Alkaline Phosphatase Total Protein Albumin Globulin Albumin/Globulin Ratio Procalcitonin 0.97 H Urine Color Urine Clarity Urine pH Ur Specific [place] Urine Protein Urine Glucose (UA) Urine Ketones Urine Blood Urine Nitrate Urine Bilirubin Urine Urobilinogen Ur Leukocyte Esterase Urine RBC (Auto) Urine Microscopic WBC Ur Squamous Epith Cells Amorphous Sediment Urine Bacteria Granular Casts (Auto) Blood Type A NEGATIVE Antibody Screen Negative Crossmatch See Detail BBK History Checked Patient has bt 07/08/17 07/08/17 12:30 12:50 WBC RBC Hgb Hct MCV MCH MCHC RDW Plt Count MPV Neut % (Auto) Lymph % (Auto) [place] % (Auto) Eos % (Auto) Baso % (Auto) Neut # Lymph # [place] # Eos # Baso # PT 13.4 H INR 1.2 APTT 30.8 Fibrinogen 596 H pCO2 pO2 HCO3 ABG pH ABG Total CO2 ABG O2 Saturation ABG O2 Content ABG Base Excess ABG Hemoglobin ABG Carboxyhemoglobin POC ABG HHb (Measured) ABG Methemoglobin ABG O2 Capacity Nadry Test A-a O2 Difference Hgb O2 Saturation Vent Mode Mechanical Rate FiO2 Tidal Volume PEEP Sodium Potassium Chloride Carbon Dioxide Anion Gap BUN Creatinine Est GFR ( Amer) Est GFR (Non-Af Amer) POC Glucose (mg/dL) Random Glucose Calcium Total Bilirubin AST ALT Alkaline Phosphatase Total Protein Albumin Globulin Albumin/Globulin Ratio Procalcitonin Urine Color Yellow Urine Clarity Turbid Urine pH 6.0 Ur Specific [place] 1.012 Urine Protein >=500 Urine Glucose (UA) 150 Urine Ketones Negative Urine Blood Small Urine Nitrate Negative Urine Bilirubin Negative Urine Urobilinogen 0.2-1.0 Ur Leukocyte Esterase Neg Urine RBC (Auto) 14 H Urine Microscopic WBC 20 H Ur Squamous Epith Cells 2 Amorphous Sediment Occ H Urine Bacteria Occ H Granular Casts (Auto) 3 Blood Type Antibody Screen Crossmatch BBK History Checked Assessment & Plan - Assessment and Plan (Free Text) Assessment: 66M w/recurrent pleural effusions requiring recurrent thoracentesis consulted for chest tube placement Plan: Left Chest tube placed FU CXR FU fluid cytology, LDH, glucose, cells Daily chest tube dressing changes FU CT chest/ab/pelvis Further mgmt as per ICU and primary teams DW attending Cadence, PGY-1 - Date & Time Date: 07/08/17 Time: 14:26 Chest Tube Insertion - Chest Tube Placement Indication: Other (pleural effusion, recurrent) Consent Obtained: Written Procedural Sedation: None Procedure Description: Prepped W/Betadine, Sterile Drape Applied, Local Anes Used: (10cc Lidocaine 2% w/epi) Incision Completed And Tube Inserted At: between ribs 4 and 5 at the midaxillary line Post Insertion Procedure(s): Tube Sutured To Chest Wall, Tube Connected To Suction, No Air Leak Noted
--- NOTE | 2017-07-08 15:09 | RAD ---
PROCEDURE: CHEST RADIOGRAPH, 1 VIEW HISTORY: s/p left chest tube insertion COMPARISON: Chest radiograph performed approximately 9.5 hours prior FINDINGS: LUNGS: Bibasilar atelectasis. Hazy change involving the right lung base. PLEURA: Questionable small right pleural effusion. Small left pleural effusion. No pneumothorax. CARDIOVASCULAR: Atherosclerotic aortic calcifications. Cardiomediastinal silhouette unchanged. OSSEOUS STRUCTURES: No significant abnormalities. VISUALIZED UPPER ABDOMEN: Normal. OTHER FINDINGS: New left-sided large-bore chest tube. Endotracheal and enteric tubes, unchanged. IMPRESSION: New left-sided chest tube with decrease in size of left pleural effusion. No appreciable pneumothorax. Layering right pleural effusion versus atelectasis/ infiltrate.
--- NOTE | 2017-07-08 15:14 | CP.PCM.PN ---
Subjective - Date & Time of Evaluation Date of Evaluation: 07/08/17 Time of Evaluation: 15:02 - Subjective Subjective: Reason for consultation: Left pleural effusion. Requsested by DR Ellis. Imaging studies and progress notes reviewed . 66 yo male intubated on vent support with multiple comorbidities now has recurrent left pleural effusion. treated previously with IR guided drainages. Tube thoracostomy recommened by Dr. Valentine, and possible pleurodesis later. A chest tube inserted at the bedside, and cxr shows clearing of left base. CT of chest today to assess lung parenchymal process. Pleural fluid for analysis. d/ w Drs. Wagner and Cadence on rounds. Objective - Vital Signs/Intake and Output Vital Signs (last 24 hours): Temp Pulse Resp BP Pulse Ox 98.5 F 77 12 141/54 L 93 L 07/08/17 12:00 07/08/17 12:00 07/08/17 12:00 07/08/17 12:00 07/08/17 12:00 Intake and Output: 07/08/17 07/08/17 06:59 18:59 Intake Total 1740 Output Total 500 Balance 1240 - Medications Medications: Current Medications Albuterol/Ipratropium (Duoneb 3 Mg/0.5 Mg (3 Ml) Ud) 3 ml INH RQID [facility] Last Admin: 07/08/17 11:08 Dose: 3 ml Amlodipine Besylate (Norvasc) 10 mg PO DAILY [facility] Last Admin: 07/08/17 08:44 Dose: 10 mg Bacitracin (Bacitracin Oint) 1 applic TOP TID [facility] Last Admin: 07/08/17 08:40 Dose: 1 applic Calcium Acetate (Phoslo) 2,001 mg PO 0830,1200,1830 [facility] Last Admin: 07/08/17 12:13 Dose: 2,001 mg Dextrose (Dextrose 50% Inj) 0 ml IV STAT PRN; Protocol PRN Reason: Hypoglycemia Protocol Dextrose (Glutose 15) 0 gm PO ONCE PRN; Protocol PRN Reason: Hypoglycemia Protocol Enoxaparin Sodium (Lovenox) 30 mg SC DAILY [facility] PRN Reason: Protocol Last Admin: 07/08/17 09:48 Dose: Not Given Epoetin Roel (Procrit) 14,000 unit SC MWF [facility] Last Admin: 07/07/17 09:14 Dose: 14,000 unit Ergocalciferol (Drisdol 50,000 Intl Units Cap) 1 cap PO Q7D [facility] Last Admin: 07/01/17 09:01 Dose: 1 cap Glipizide (Glucotrol) 10 mg PO BIDAC [facility] Last Admin: 07/08/17 06:40 Dose: 10 mg Glucagon (Glucagen Diagnostic Kit) 0 mg IM STAT PRN; Protocol PRN Reason: Hypoglycemia Protocol Hydralazine HCl (Apresoline) 25 mg PO Q8 [facility] Last Admin: 07/08/17 08:40 Dose: 25 mg Linezolid (Zyvox 600mg/300ml D5w) 600 mg in 300 mls @ 300 mls/hr IVPB Q12 [facility] PRN Reason: Protocol Last Admin: 07/08/17 08:46 Dose: 300 mls/hr Cefepime HCl 1 gm/ Sodium (Chloride) 100 mls @ 100 mls/hr IVPB DAILY [facility] PRN Reason: Protocol Last Admin: 07/08/17 08:43 Dose: 100 mls/hr Micafungin Sodium 100 mg/ (Sodium Chloride) 100 mls @ 100 mls/hr IVPB DAILY [facility] PRN Reason: Protocol Last Admin: 07/07/17 12:44 Dose: 100 mls/hr Levetiracetam 500 mg/ Sodium (Chloride) 105 mls @ 210 mls/hr IVPB Q12 [facility] Last Admin: 07/08/17 08:42 Dose: 210 mls/hr Insulin Human Lispro (Humalog) 0 units SC ACHS [facility] PRN Reason: Protocol Last Admin: 07/08/17 06:39 Dose: Not Given Levothyroxine Sodium (Synthroid) 50 mcg PO DAILY@0630 [facility] Last Admin: 07/08/17 06:40 Dose: 50 mcg Metoprolol Tartrate (Lopressor) 5 mg IVP Q6 [facility] Last Admin: 07/08/17 09:49 Dose: 5 mg Pantoprazole Sodium (Protonix Inj) 40 mg IVP Q12 [facility] Sodium Bicarbonate (Sodium Bicarbonate Tab) 1,300 mg PO Q8 [facility] Last Admin: 07/02/17 16:23 Dose: 1,300 mg Thiamine HCl (Vitamin B1 Tab) 100 mg PO BID [facility] Last Admin: 07/08/17 08:46 Dose: 100 mg - Labs Labs: 07/08/17 05:00 07/08/17 05:00 PT 13.4 Seconds (9.8-13.1) H 07/08/17 12:50 INR 1.2 (0.9-1.2) 07/08/17 12:50 APTT 30.8 Seconds (25.6-37.1) 07/08/17 12:50
[2017-07-08 16:34] LABS: GLUCOSE,BODY FLUID 119 mg/dL (NONE ESTABLISHED); TOTAL PROTEIN,BODY FLUID < 2.0 g/dL (NONE ESTABLISHED)
--- NOTE | 2017-07-08 18:18 | CT ---
PROCEDURE: CT chest and abdomen without contrast HISTORY: eval lung parenchyma, GI bleed COMPARISON: CT abdomen from 06/26/2017. TECHNIQUE: CT scan of the chest and abdomen was performed without administration of intravenous contrast. Oral contrast was not administered. Radiation dose: Total exam DLP = 758.18 mGy-cm. This CT exam was performed using one or more of the following dose reduction techniques: Automated exposure control, adjustment of the mA and/or kV according to patient size, and/or use of iterative reconstruction technique. FINDINGS: CT CHEST:: There is diffuse centrilobular emphysema in the lungs. There are 2 discrete 4-5 mm nodules in the posterior segment of the right upper lobe. There is a moderate right pleural effusion with compressive atelectasis of the right lower lobe. There is airspace disease with air bronchogram in the left lower lobe. There is a calcified nodule in the left lower lobe. There is a small left hydro pneumothorax. A left chest tube terminates in the posterior inferior pleural cavity. An endotracheal tube is stable position. The nasogastric tube terminates in the stomach. LIVER: Normal in size. No gross lesion or ductal dilatation. GALLBLADDER AND BILE DUCTS: Contracted. PANCREAS: Normal in size. No gross lesion or ductal dilatation. SPLEEN: Normal in size. ADRENALS: No discrete nodule. KIDNEYS AND URETERS: Normal in size without nephrolithiasis. No hydronephrosis. VASCULATURE: Unremarkable. No aortic aneurysm. BOWEL: The visualized small bowel loops are normal in caliber BONES: No acute fracture. OTHER FINDINGS: There is small abdominal ascites. IMPRESSION: 1. Left chest tube terminates in the posterior inferior pleural cavity. Small left hydro pneumothorax. Airspace disease in the left lower lobe could represent atelectasis or pneumonia. 2. Moderate right pleural effusion and compressive atelectasis in the right lower lobe. 3. Diffuse centrilobular emphysema in the lungs. Small 4-5 mm nodules in the posterior segment of the right upper lobe may be postinflammatory however follow-up 6-12 months interval is recommended to assess stability/resolution.
--- NOTE | 2017-07-08 18:24 | CP.PCM.PN ---
Subjective - Date & Time of Evaluation Date of Evaluation: 07/08/17 Time of Evaluation: 18:21 - Subjective Subjective: 66 yo M w/ pmh of htn, dm, CKD IIIB, recurrent L pleural effusion, MGUS, admitted with hypothermia, CHINTAN and recurrent pleural effusion; hospital course complicated by brief cardiac arrest, hypoxemic resp failure and altered mental status; Patient is s/p L sided chest tube placement today; subsequently has had several episodes of vomiting; mental status noted to be waxing/waning; Objective - Vital Signs/Intake and Output Vital Signs (last 24 hours): Temp Pulse Resp BP Pulse Ox 98.5 F 78 15 146/60 100 07/08/17 16:00 07/08/17 16:00 07/08/17 16:00 07/08/17 16:00 07/08/17 16:00 Intake and Output: 07/08/17 07/08/17 06:59 18:59 Intake Total 1740 Output Total 500 Balance 1240 - Medications Medications: Current Medications Albuterol/Ipratropium (Duoneb 3 Mg/0.5 Mg (3 Ml) Ud) 3 ml INH RQID [facility] Last Admin: 07/08/17 15:21 Dose: 3 ml Amlodipine Besylate (Norvasc) 10 mg PO DAILY [facility] Last Admin: 07/08/17 08:44 Dose: 10 mg Bacitracin (Bacitracin Oint) 1 applic TOP TID [facility] Last Admin: 07/08/17 08:40 Dose: 1 applic Calcium Acetate (Phoslo) 2,001 mg PO 0830,1200,1830 [facility] Last Admin: 07/08/17 12:13 Dose: 2,001 mg Dextrose (Dextrose 50% Inj) 0 ml IV STAT PRN; Protocol PRN Reason: Hypoglycemia Protocol Dextrose (Glutose 15) 0 gm PO ONCE PRN; Protocol PRN Reason: Hypoglycemia Protocol Enoxaparin Sodium (Lovenox) 30 mg SC DAILY [facility] PRN Reason: Protocol Last Admin: 07/08/17 09:48 Dose: Not Given Epoetin Roel (Procrit) 14,000 unit SC MWF [facility] Last Admin: 07/07/17 09:14 Dose: 14,000 unit Ergocalciferol (Drisdol 50,000 Intl Units Cap) 1 cap PO Q7D [facility] Last Admin: 07/01/17 09:01 Dose: 1 cap Glipizide (Glucotrol) 10 mg PO BIDAC [facility] Last Admin: 07/08/17 06:40 Dose: 10 mg Glucagon (Glucagen Diagnostic Kit) 0 mg IM STAT PRN; Protocol PRN Reason: Hypoglycemia Protocol Hydralazine HCl (Apresoline) 25 mg PO Q8 [facility] Last Admin: 07/08/17 08:40 Dose: 25 mg Linezolid (Zyvox 600mg/300ml D5w) 600 mg in 300 mls @ 300 mls/hr IVPB Q12 [facility] PRN Reason: Protocol Last Admin: 07/08/17 08:46 Dose: 300 mls/hr Cefepime HCl 1 gm/ Sodium (Chloride) 100 mls @ 100 mls/hr IVPB DAILY [facility] PRN Reason: Protocol Last Admin: 07/08/17 08:43 Dose: 100 mls/hr Micafungin Sodium 100 mg/ (Sodium Chloride) 100 mls @ 100 mls/hr IVPB DAILY [facility] PRN Reason: Protocol Last Admin: 07/07/17 12:44 Dose: 100 mls/hr Levetiracetam 500 mg/ Sodium (Chloride) 105 mls @ 210 mls/hr IVPB Q12 [facility] Last Admin: 07/08/17 08:42 Dose: 210 mls/hr Insulin Human Lispro (Humalog) 0 units SC ACHS [facility] PRN Reason: Protocol Last Admin: 07/08/17 06:39 Dose: Not Given Levothyroxine Sodium (Synthroid) 50 mcg PO DAILY@0630 [facility] Last Admin: 07/08/17 06:40 Dose: 50 mcg Metoprolol Tartrate (Lopressor) 5 mg IVP Q6 [facility] Last Admin: 07/08/17 09:49 Dose: 5 mg Pantoprazole Sodium (Protonix Inj) 40 mg IVP Q12 [facility] Sodium Bicarbonate (Sodium Bicarbonate Tab) 1,300 mg PO Q8 [facility] Last Admin: 07/02/17 16:23 Dose: 1,300 mg Thiamine HCl (Vitamin B1 Tab) 100 mg PO BID [facility] Last Admin: 07/08/17 08:46 Dose: 100 mg - Labs Labs: 07/08/17 05:00 07/08/17 05:00 PT 13.4 Seconds (9.8-13.1) H 07/08/17 12:50 INR 1.2 (0.9-1.2) 07/08/17 12:50 APTT 30.8 Seconds (25.6-37.1) 07/08/17 12:50 - Constitutional Appears: In Acute Distress, Chronically Ill - Eye Exam Eye Exam: absent: Scleral icterus - ENT Exam ENT Exam: Mucous Membranes Moist - Respiratory Exam Additional comments: rales/rhonchorous sounds on L, clear on R - Cardiovascular Exam Cardiovascular Exam: RRR, +S1, +S2 - GI/Abdominal Exam GI & Abdominal Exam: Soft. absent: Distended, Tenderness - Extremities Exam Additional comments: markedly edematous upper ext and dependent areas; - Neurological Exam Neurological Exam: Awake Additional comments: responsive at times to verbal stimuli, more lethargic today; - Skin Skin Exam: Warm. absent: Cyanosis Assessment and Plan (1) Acute renal failure Assessment & Plan: CHINTAN on CKD; ATN, recovering very slowly; s/p IV albumin overnight to help maintain intravascular volume status; will given another 50 g IV albumin; avoid nephrotoxic agents (no NSAIDS for pain; morphine also not ideal as the metabolites accumulate in renal failure; can use dilaudid as needed); Status: Acute (2) Pleural effusion Assessment & Plan: Now s/p L sided chest tube placement; fluid analysis sent again, will f/u; Status: Chronic (3) Nephrotic syndrome Assessment & Plan: Still holding off on KEVIN blockade until renal function improves further and stabilizes; Status: Chronic (4) Chronic kidney disease, stage 3 (moderate) Status: Chronic (5) Hypertensive CKD (chronic kidney disease) Assessment & Plan: BP acceptable; avoiding drastic reduction in BP; keep SBP ~150; continue current meds; Status: Acute (6) Hypothermia Status: Acute (7) Altered mental status Status: Acute (8) SIRS (systemic inflammatory response syndrome) Status: Acute (9) Anemia Assessment & Plan: Hgb again dropped; s/p 1 more unit prbc today; continue EPO 14,000 u qMWF; Status: Chronic (10) Monoclonal gammopathy Status: Chronic
[2017-07-08] MEDS: Micafungin 100 MG in Sodium Chloride 0.9% 100 ML IVPB SCH (18:42)
[2017-07-08] MEDS ORDERED: HYDROmorphone 0.5 mg/0.5 ml ISec IVP PRN ×2 (18:53→23:36)
[2017-07-08] MEDS ORDERED: HYDROmorphone 0.5 mg/0.5 ml ISec IVP SCH (23:15)
[2017-07-09] MEDS: Metoprolol 1 mg/ml Inj IVP SCH ×4 (04:10→22:56)
[2017-07-09 05:43] LABS: HEMOGLOBIN 7.8 g/dL (12.0-18.0); MEAN CELL VOLUME 92.5 fl (80.0-94.0); MEAN CORPUSCULAR HEMOGLOBIN 30.4 pg (27.0-31.0); MEAN CORPUSCULAR HGB CONC 32.9 g/dL (33.0-37.0); RBC 2.56 Mil/uL (4.40-5.90); RED CELL DISTRIBUTION WIDTH 15.5 % (11.5-14.5); WHITE BLOOD COUNT 4.1 K/uL (4.8-10.8)
[2017-07-09 05:56] LABS: ABG ALLEN TEST YES; ARTERIAL BLOOD GAS HCO3 24.7 mmol/L (21-28); ARTERIAL BLOOD GAS HEMOGLOBIN 8.3 g/dL (11.7-17.4); ARTERIAL BLOOD GAS O2 CAPACITY 11.6 mL/dL (16-24); ARTERIAL BLOOD GAS O2 CONTENT 11.7 ML/dL (15-23); ARTERIAL BLOOD GAS O2 SAT 100.5 % (95-98); ARTERIAL BLOOD GAS PCO2 38 mm/Hg (35-45); ARTERIAL BLOOD GAS PH 7.41 (7.35-7.45); ARTERIAL BLOOD GAS PO2 129 mm/Hg (80-100); ARTERIAL BLOOD GAS TCO2 25.3 mmol/L (22-28)
[2017-07-09 06:06] LABS: ALB/GLOB RATIO 0.9 (1.0-2.1); ALBUMIN 2.4 g/dL (3.5-5.0); CALCIUM 8.1 mg/dL (8.4-10.2)
[2017-07-09] MEDS: Insulin Lispro (humaLOG) 100 Units/ml Inj SC SCH ×4 (06:48→22:09)
[2017-07-09] MEDS: Levothyroxine 50 MCG TAB PO SCH (06:51)
--- NOTE | 2017-07-09 07:17 | CP.PCM.PN ---
Subjective - Date & Time of Evaluation Date of Evaluation: 07/09/17 Time of Evaluation: 07:05 - Subjective Subjective: CT surgery progress note for Dr. Hannah Vila, PGY-1 Pt S & E at bedside. Pt intubated. CT with 900cc serous output since placement. Objective - Vital Signs/Intake and Output Vital Signs (last 24 hours): Temp Pulse Resp BP Pulse Ox 99.4 F 72 22 157/63 H 100 07/09/17 00:00 07/09/17 06:00 07/09/17 06:00 07/09/17 06:00 07/09/17 06:00 Intake and Output: 07/09/17 07/09/17 06:59 18:59 Intake Total 1035 Output Total 530 Balance 505 - Medications Medications: Current Medications Albuterol/Ipratropium (Duoneb 3 Mg/0.5 Mg (3 Ml) Ud) 3 ml INH RQID [facility] Last Admin: 07/08/17 19:23 Dose: 3 ml Amlodipine Besylate (Norvasc) 10 mg PO DAILY [facility] Last Admin: 07/08/17 08:44 Dose: 10 mg Bacitracin (Bacitracin Oint) 1 applic TOP TID [facility] Last Admin: 07/08/17 18:40 Dose: 1 applic Calcium Acetate (Phoslo) 2,001 mg PO 0830,1200,1830 [facility] Last Admin: 07/08/17 18:43 Dose: 2,001 mg Dextrose (Dextrose 50% Inj) 0 ml IV STAT PRN; Protocol PRN Reason: Hypoglycemia Protocol Dextrose (Glutose 15) 0 gm PO ONCE PRN; Protocol PRN Reason: Hypoglycemia Protocol Enoxaparin Sodium (Lovenox) 30 mg SC DAILY [facility] PRN Reason: Protocol Last Admin: 07/08/17 09:48 Dose: Not Given Epoetin Roel (Procrit) 14,000 unit SC MWF [facility] Last Admin: 07/07/17 09:14 Dose: 14,000 unit Ergocalciferol (Drisdol 50,000 Intl Units Cap) 1 cap PO Q7D [facility] Last Admin: 07/01/17 09:01 Dose: 1 cap Glipizide (Glucotrol) 10 mg PO BIDAC [facility] Last Admin: 07/08/17 18:40 Dose: 10 mg Glucagon (Glucagen Diagnostic Kit) 0 mg IM STAT PRN; Protocol PRN Reason: Hypoglycemia Protocol Hydralazine HCl (Apresoline) 25 mg PO Q8 [facility] Last Admin: 07/09/17 01:34 Dose: 25 mg Hydromorphone HCl (Dilaudid) 0.5 mg IVP Q4H PRN PRN Reason: Pain, moderate (4-7) Stop: 07/10/17 18:54 Linezolid (Zyvox 600mg/300ml D5w) 600 mg in 300 mls @ 300 mls/hr IVPB Q12 [facility] PRN Reason: Protocol Last Admin: 07/08/17 20:44 Dose: 300 mls/hr Cefepime HCl 1 gm/ Sodium (Chloride) 100 mls @ 100 mls/hr IVPB DAILY [facility] PRN Reason: Protocol Last Admin: 07/08/17 08:43 Dose: 100 mls/hr Micafungin Sodium 100 mg/ (Sodium Chloride) 100 mls @ 100 mls/hr IVPB DAILY [facility] PRN Reason: Protocol Last Admin: 07/08/17 18:42 Dose: 100 mls/hr Levetiracetam 500 mg/ Sodium (Chloride) 105 mls @ 210 mls/hr IVPB Q12 [facility] Last Admin: 07/08/17 20:43 Dose: 210 mls/hr Insulin Human Lispro (Humalog) 0 units SC ACHS [facility] PRN Reason: Protocol Last Admin: 07/09/17 06:48 Dose: Not Given Levothyroxine Sodium (Synthroid) 50 mcg PO DAILY@0630 [facility] Last Admin: 07/09/17 06:51 Dose: 50 mcg Metoprolol Tartrate (Lopressor) 5 mg IVP Q6 [facility] Last Admin: 07/09/17 04:10 Dose: 5 mg Pantoprazole Sodium (Protonix Inj) 40 mg IVP Q12 [facility] Last Admin: 07/08/17 20:42 Dose: 40 mg Sodium Bicarbonate (Sodium Bicarbonate Tab) 1,300 mg PO Q8 [facility] Last Admin: 07/02/17 16:23 Dose: 1,300 mg Thiamine HCl (Vitamin B1 Tab) 100 mg PO BID [facility] Last Admin: 07/08/17 18:43 Dose: 100 mg - Labs Labs: 07/09/17 04:40 07/09/17 04:40 PT 13.4 Seconds (9.8-13.1) H 07/08/17 12:50 INR 1.2 (0.9-1.2) 07/08/17 12:50 APTT 30.8 Seconds (25.6-37.1) 07/08/17 12:50 - Constitutional Appears: Non-toxic, No Acute Distress - Head Exam Head Exam: ATRAUMATIC, NORMAL INSPECTION, NORMOCEPHALIC - Eye Exam Eye Exam: EOMI, Normal appearance - ENT Exam ENT Exam: Mucous Membranes Dry Additional comments: ET tube in place - Respiratory Exam Respiratory Exam: NORMAL BREATHING PATTERN (on mechanical vent) Additional comments: Left chest wall with dressing in place over CT insertion site- dressing C/D/I - Cardiovascular Exam Cardiovascular Exam: REGULAR RHYTHM, +S1, +S2 - Neurological Exam Neurological Exam: Awake - Psychiatric Exam Additional comments: unable to assess, non verbal due to ET tube - Skin Skin Exam: Dry, Intact, Normal Color, Warm Assessment and Plan - Assessment and Plan (Free Text) Assessment: 66M w/recurrent pleural effusion s/p CT placement POD#1 Plan: Daily CXR CT to water seal Monitor output Dressing changes PRN FU pleural fluid studies Will DW attending Cadence, PGY-1
[2017-07-09] MEDS: Albuterol-Ipratrop 3 mg / 0.5 (3 ml) UD INH SCH ×4 (07:50→19:16)
--- NOTE | 2017-07-09 08:16 | CP.PCM.PN ---
Subjective - Date & Time of Evaluation Date of Evaluation: 07/09/17 Time of Evaluation: 07:00 - Subjective Subjective: Patient seen and examined bedside. Patient intubated AC, Fio2 40 %, peep 5 RR: 14. Patient awake, alert, follow commands, moving hand and feet. s/p Chest tube placement POD#1 with 900cc serous output since placement. output Salazar 150 ml yellow urine. Objective - Vital Signs/Intake and Output Vital Signs (last 24 hours): Temp Pulse Resp BP Pulse Ox 99.4 F 72 22 157/63 H 100 07/09/17 00:00 07/09/17 06:00 07/09/17 06:00 07/09/17 06:00 07/09/17 06:00 Intake and Output: 07/09/17 07/09/17 06:59 18:59 Intake Total 1035 Output Total 530 Balance 505 - Medications Medications: Current Medications Albuterol/Ipratropium (Duoneb 3 Mg/0.5 Mg (3 Ml) Ud) 3 ml INH RQID [facility] Last Admin: 07/09/17 07:50 Dose: 3 ml Amlodipine Besylate (Norvasc) 10 mg PO DAILY [facility] Last Admin: 07/08/17 08:44 Dose: 10 mg Bacitracin (Bacitracin Oint) 1 applic TOP TID [facility] Last Admin: 07/08/17 18:40 Dose: 1 applic Calcium Acetate (Phoslo) 2,001 mg PO 0830,1200,1830 [facility] Last Admin: 07/08/17 18:43 Dose: 2,001 mg Dextrose (Dextrose 50% Inj) 0 ml IV STAT PRN; Protocol PRN Reason: Hypoglycemia Protocol Dextrose (Glutose 15) 0 gm PO ONCE PRN; Protocol PRN Reason: Hypoglycemia Protocol Enoxaparin Sodium (Lovenox) 30 mg SC DAILY [facility] PRN Reason: Protocol Last Admin: 07/08/17 09:48 Dose: Not Given Epoetin Roel (Procrit) 14,000 unit SC MWF [facility] Last Admin: 07/07/17 09:14 Dose: 14,000 unit Ergocalciferol (Drisdol 50,000 Intl Units Cap) 1 cap PO Q7D [facility] Last Admin: 07/01/17 09:01 Dose: 1 cap Glipizide (Glucotrol) 10 mg PO BIDAC [facility] Last Admin: 07/08/17 18:40 Dose: 10 mg Glucagon (Glucagen Diagnostic Kit) 0 mg IM STAT PRN; Protocol PRN Reason: Hypoglycemia Protocol Hydralazine HCl (Apresoline) 25 mg PO Q8 [facility] Last Admin: 07/09/17 01:34 Dose: 25 mg Hydromorphone HCl (Dilaudid) 0.5 mg IVP Q4H PRN PRN Reason: Pain, moderate (4-7) Stop: 07/10/17 18:54 Linezolid (Zyvox 600mg/300ml D5w) 600 mg in 300 mls @ 300 mls/hr IVPB Q12 [facility] PRN Reason: Protocol Last Admin: 07/08/17 20:44 Dose: 300 mls/hr Cefepime HCl 1 gm/ Sodium (Chloride) 100 mls @ 100 mls/hr IVPB DAILY [facility] PRN Reason: Protocol Last Admin: 07/08/17 08:43 Dose: 100 mls/hr Micafungin Sodium 100 mg/ (Sodium Chloride) 100 mls @ 100 mls/hr IVPB DAILY [facility] PRN Reason: Protocol Last Admin: 07/08/17 18:42 Dose: 100 mls/hr Levetiracetam 500 mg/ Sodium (Chloride) 105 mls @ 210 mls/hr IVPB Q12 [facility] Last Admin: 07/08/17 20:43 Dose: 210 mls/hr Insulin Human Lispro (Humalog) 0 units SC ACHS [facility] PRN Reason: Protocol Last Admin: 07/09/17 06:48 Dose: Not Given Levothyroxine Sodium (Synthroid) 50 mcg PO DAILY@0630 [facility] Last Admin: 07/09/17 06:51 Dose: 50 mcg Metoprolol Tartrate (Lopressor) 5 mg IVP Q6 [facility] Last Admin: 07/09/17 04:10 Dose: 5 mg Pantoprazole Sodium (Protonix Inj) 40 mg IVP Q12 [facility] Last Admin: 07/08/17 20:42 Dose: 40 mg Sodium Bicarbonate (Sodium Bicarbonate Tab) 1,300 mg PO Q8 [facility] Last Admin: 07/02/17 16:23 Dose: 1,300 mg Thiamine HCl (Vitamin B1 Tab) 100 mg PO BID [facility] Last Admin: 07/08/17 18:43 Dose: 100 mg - Labs Labs: 07/09/17 04:40 01/10/18 04:40 PT 13.4 Seconds (9.8-13.1) H 07/08/17 12:50 INR 1.2 (0.9-1.2) 07/08/17 12:50 APTT 30.8 Seconds (25.6-37.1) 07/08/17 12:50 - Constitutional Appears: In Acute Distress, Cachectic, Chronically Ill - Head Exam Head Exam: ATRAUMATIC, NORMOCEPHALIC - Eye Exam Eye Exam: Normal appearance - ENT Exam ENT Exam: Mucous Membranes Moist - Neck Exam Neck Exam: Normal Inspection - Respiratory Exam Respiratory Exam: Decreased Breath Sounds. absent: Rales, Rhonchi, Wheezes Additional comments: bibasal - Cardiovascular Exam Cardiovascular Exam: REGULAR RHYTHM, +S1, +S2 - GI/Abdominal Exam GI & Abdominal Exam: Soft, Normal Bowel Sounds. absent: Tenderness - Extremities Exam Extremities Exam: Normal Inspection. absent: Pedal Edema Additional comments: b/l hand and forearm edema 2+ - Neurological Exam Neurological Exam: Alert, Awake - Skin Skin Exam: Abrasion - Additional Findings Additional findings: left hand with scab formation, covered with bandage and abx cream Assessment and Plan - Assessment and Plan (Free Text) Plan: 66 yo M w/ PMHx HTN, DM, CKD IIIB w/ 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, monoclonal gammopathy, recurrent L pleural effusion, admitted for sepsis, Hypothermia, CHINTAN on CKD. Patient is DNR status. Assessment/Plan 1) Acute Respiratory Failure -improved -on ventilator day #6 -sputum fungus cx: preliminary neg. on mycamine day #8 2) Recurrent Left Pleural effusion, Transudate -Pulmonology consult appreciated: no benefit for bronchoscopy or lung biopsy -IR consult appreciated -Cardiothoracic surgery consult appreciated - s/p Chest tube placement POD#1 -quantiferon gold:indeterminated high 3) HAP -improved -c/w cefepime day # 14, linezolid day # 15 -Procalcitonin 14.4 trending down 0.7 4) DM nephropathy -Kidney biopsy 06/05/17: Diabetic nephropathy, nodular glomerulosclerosis, associated with aprox 40 % globally sclerosed glomeruli( calss III), 10-15 % segmentally sclerosed glomeruli, docal moderate interstitial fibrosis and mod vascular sclerosis, including marked hyaline arteriolosclerosis.NO EVIDENCE OF MONOCLONAL LIGHT OR HEAVY CHAIN-RELATED RENAL DISEASE. -Nephro consult appreciated: c/w albumin, dilaudid for pain, no morphine, no NSAID -Renal duplex: no renal vein thrombosis 5) CHINTAN on CKD stage 4 w/ new onset of ATN - Nephorologist consult appreciated -hold Lasix DC 6) Thrombocytopenia -HemOnc consult appreciated -trending up 75-69-77 7) Hypothyroidism, subclinical -Econdrinologist consult appreciated -on levothryroxin 8) Hyperprolactinemia -Prolactin trending down -Endocrionologist consult suggested -MRI brain:no inracraneal hemorrhage, chronic lacunar infarct b/l cerebral, changes in dali haydee represent chronic ischemia or sequela of osmotic myelonilolysis not excluded.chronic b/l basal nuclei lacunar infarcts, mastoid ppasification secondary to intubation 9) Pressure Ulcer and TDI -Sacral region stage 2 -wound care consult appreciated 10) pEF CHF -Echo 05/31/17 normal EF 60-65% -c/w labetalol, hydralazine 11) DM 2 -SSI 12) HTN - Hydralazine 25 Q8. To keep systolic BP 150 - Labetalol 5m IV PRN 13) Anemia -secondary to CKD -s/p transfucion 1 u pRBC -Hgb 7.8 today. -C/W procrit 14) DVT prophylaxis -Lovenox 30 mg sc (renal dose) 15) GI prophylaxis -Pantoprazol 40 mg IV
[2017-07-09] MEDS: Bacitracin OINT 15GM TOP SCH ×3 (08:39→16:42)
[2017-07-09] MEDS: Linezolid 600 mg in D5W 300 ml 600 MG/300 ML BAG IVPB SCH ×2 (08:41→20:00)
[2017-07-09] MEDS: Micafungin 100 MG in Sodium Chloride 0.9% 100 ML IVPB SCH (08:43)
[2017-07-09] MEDS: levETIRAcetam 500 MG in Sodium Chloride 0.9% 100 ML IVPB SCH ×2 (08:45→20:01)
[2017-07-09] MEDS: Enoxaparin 30 mg Syringe SC SCH (08:45)
[2017-07-09] MEDS: Cefepime 1 GM in Sodium Chloride 0.9% 100 ML IVPB SCH (08:46)
--- NOTE | 2017-07-09 09:14 | CP.PCM.PN ---
Subjective - Date & Time of Evaluation Date of Evaluation: 07/09/17 Time of Evaluation: 09:10 - Subjective Subjective: Mr. Durand was seen examined at the bedside in ICU. He is awake and remains on mechanical ventilation. He is able to follow simple commands such as moving his bilateral upper and lower extremities. He respond using non-verbal communication such a nodding or shaking his head. He denies any headache, dizziness, nausea, or vomiting. His bilateral upper extremities positive for edema, being elevated with pillows. All his skin tear in his upper extremities are covered with dressing which is dry and intact. He has bilateral lower SCD's on. He remains on airborne precautions to rule out TB, first two sputum results were negative for TB. Objective - Vital Signs/Intake and Output Vital Signs (last 24 hours): Temp Pulse Resp BP Pulse Ox 99.0 F 75 12 161/60 H 100 07/09/17 08:00 07/09/17 08:43 07/09/17 08:00 07/09/17 08:43 07/09/17 08:00 Intake and Output: 07/09/17 07/09/17 06:59 18:59 Intake Total 1035 Output Total 530 Balance 505 - Medications Medications: Current Medications Albuterol/Ipratropium (Duoneb 3 Mg/0.5 Mg (3 Ml) Ud) 3 ml INH RQID [facility] Last Admin: 07/09/17 07:50 Dose: 3 ml Amlodipine Besylate (Norvasc) 10 mg PO DAILY [facility] Last Admin: 07/09/17 08:43 Dose: 10 mg Bacitracin (Bacitracin Oint) 1 applic TOP TID [facility] Last Admin: 07/09/17 08:39 Dose: 1 applic Calcium Acetate (Phoslo) 2,001 mg PO 0830,1200,1830 [facility] Last Admin: 07/09/17 08:42 Dose: 2,001 mg Dextrose (Dextrose 50% Inj) 0 ml IV STAT PRN; Protocol PRN Reason: Hypoglycemia Protocol Dextrose (Glutose 15) 0 gm PO ONCE PRN; Protocol PRN Reason: Hypoglycemia Protocol Enoxaparin Sodium (Lovenox) 30 mg SC DAILY [facility] PRN Reason: Protocol Last Admin: 07/09/17 08:45 Dose: 30 mg Epoetin Roel (Procrit) 14,000 unit SC MWF [facility] Last Admin: 07/07/17 09:14 Dose: 14,000 unit Ergocalciferol (Drisdol 50,000 Intl Units Cap) 1 cap PO Q7D [facility] Last Admin: 07/08/17 08:40 Dose: 1 cap Glipizide (Glucotrol) 10 mg PO BIDAC [facility] Last Admin: 07/09/17 08:41 Dose: 10 mg Glucagon (Glucagen Diagnostic Kit) 0 mg IM STAT PRN; Protocol PRN Reason: Hypoglycemia Protocol Hydralazine HCl (Apresoline) 25 mg PO Q8 [facility] Last Admin: 07/09/17 01:34 Dose: 25 mg Hydromorphone HCl (Dilaudid) 0.5 mg IVP Q4H PRN PRN Reason: Pain, moderate (4-7) Stop: 07/10/17 18:54 Linezolid (Zyvox 600mg/300ml D5w) 600 mg in 300 mls @ 300 mls/hr IVPB Q12 [facility] PRN Reason: Protocol Last Admin: 07/09/17 08:41 Dose: 300 mls/hr Cefepime HCl 1 gm/ Sodium (Chloride) 100 mls @ 100 mls/hr IVPB DAILY [facility] PRN Reason: Protocol Last Admin: 07/09/17 08:46 Dose: 100 mls/hr Micafungin Sodium 100 mg/ (Sodium Chloride) 100 mls @ 100 mls/hr IVPB DAILY [facility] PRN Reason: Protocol Last Admin: 07/09/17 08:43 Dose: 100 mls/hr Levetiracetam 500 mg/ Sodium (Chloride) 105 mls @ 210 mls/hr IVPB Q12 [facility] Last Admin: 07/09/17 08:45 Dose: 210 mls/hr Insulin Human Lispro (Humalog) 0 units SC ACHS [facility] PRN Reason: Protocol Last Admin: 07/09/17 06:48 Dose: Not Given Levothyroxine Sodium (Synthroid) 50 mcg PO DAILY@0630 [facility] Last Admin: 07/09/17 06:51 Dose: 50 mcg Metoprolol Tartrate (Lopressor) 5 mg IVP Q6 [facility] Last Admin: 07/09/17 04:10 Dose: 5 mg Pantoprazole Sodium (Protonix Inj) 40 mg IVP Q12 [facility] Last Admin: 07/09/17 08:42 Dose: 40 mg Sodium Bicarbonate (Sodium Bicarbonate Tab) 1,300 mg PO Q8 [facility] Last Admin: 07/02/17 16:23 Dose: 1,300 mg Thiamine HCl (Vitamin B1 Tab) 100 mg PO BID [facility] Last Admin: 07/09/17 08:41 Dose: 100 mg - Labs Labs: 07/09/17 04:40 07/09/17 04:40 PT 13.4 Seconds (9.8-13.1) H 07/08/17 12:50 INR 1.2 (0.9-1.2) 07/08/17 12:50 APTT 30.8 Seconds (25.6-37.1) 07/08/17 12:50 - Constitutional Appears: No Acute Distress - Head Exam Head Exam: NORMAL INSPECTION - Neurological Exam Neurological Exam: Alert, Awake Neuro motor strength exam: Left Upper Extremity: 2/1, Right Upper Extremity: 2/1 , Left Lower Extremity: 2/1, Right Lower Extremity: 2/1 Additional comments: Neurological uncganged from previous examination. Assessment and Plan (1) Altered mental status Assessment & Plan: Case discussed with Dr. Das, continue all current medical regimen and treat any underlying abnormalities of electrolytes and CBC. There is no new recommendations from neurology. Status: Acute
--- NOTE | 2017-07-09 09:54 | CP.PCM.PN ---
Subjective - Date & Time of Evaluation Date of Evaluation: 07/09/17 Time of Evaluation: 09:54 - Subjective Subjective: AWAKE AND ALERT L CHEST TUBE IN PLACE STILL ON THE VENT CXR-IMPROVEMENT OF PLEURAL EFFUSIONS IMP-RESP FAILURE-IMPROVING PLEURAL EFFUSIONS RENAL FAILURE WILL CONTINUE CURRENT RX ATTEMPT TO EXTUBATE Objective - Vital Signs/Intake and Output Vital Signs (last 24 hours): Temp Pulse Resp BP Pulse Ox 99.0 F 75 12 161/60 H 100 07/09/17 08:00 07/09/17 08:45 07/09/17 08:00 07/09/17 08:45 07/09/17 08:00 Intake and Output: 07/09/17 07/09/17 06:59 18:59 Intake Total 1035 Output Total 530 Balance 505 - Medications Medications: Current Medications Albuterol/Ipratropium (Duoneb 3 Mg/0.5 Mg (3 Ml) Ud) 3 ml INH RQID [facility] Last Admin: 07/09/17 07:50 Dose: 3 ml Amlodipine Besylate (Norvasc) 10 mg PO DAILY [facility] Last Admin: 07/09/17 08:43 Dose: 10 mg Bacitracin (Bacitracin Oint) 1 applic TOP TID [facility] Last Admin: 07/09/17 08:39 Dose: 1 applic Calcium Acetate (Phoslo) 2,001 mg PO 0830,1200,1830 [facility] Last Admin: 07/09/17 08:42 Dose: 2,001 mg Dextrose (Dextrose 50% Inj) 0 ml IV STAT PRN; Protocol PRN Reason: Hypoglycemia Protocol Dextrose (Glutose 15) 0 gm PO ONCE PRN; Protocol PRN Reason: Hypoglycemia Protocol Enoxaparin Sodium (Lovenox) 30 mg SC DAILY [facility] PRN Reason: Protocol Last Admin: 07/09/17 08:45 Dose: 30 mg Epoetin Roel (Procrit) 14,000 unit SC MWF [facility] Last Admin: 07/07/17 09:14 Dose: 14,000 unit Ergocalciferol (Drisdol 50,000 Intl Units Cap) 1 cap PO Q7D [facility] Last Admin: 07/08/17 08:40 Dose: 1 cap Glipizide (Glucotrol) 10 mg PO BIDAC [facility] Last Admin: 07/09/17 08:41 Dose: 10 mg Glucagon (Glucagen Diagnostic Kit) 0 mg IM STAT PRN; Protocol PRN Reason: Hypoglycemia Protocol Hydralazine HCl (Apresoline) 25 mg PO Q8 [facility] Last Admin: 07/09/17 08:45 Dose: 25 mg Hydromorphone HCl (Dilaudid) 0.5 mg IVP Q4H PRN PRN Reason: Pain, moderate (4-7) Stop: 07/10/17 18:54 Linezolid (Zyvox 600mg/300ml D5w) 600 mg in 300 mls @ 300 mls/hr IVPB Q12 [facility] PRN Reason: Protocol Last Admin: 07/09/17 08:41 Dose: 300 mls/hr Cefepime HCl 1 gm/ Sodium (Chloride) 100 mls @ 100 mls/hr IVPB DAILY [facility] PRN Reason: Protocol Last Admin: 07/09/17 08:46 Dose: 100 mls/hr Micafungin Sodium 100 mg/ (Sodium Chloride) 100 mls @ 100 mls/hr IVPB DAILY [facility] PRN Reason: Protocol Last Admin: 07/09/17 08:43 Dose: 100 mls/hr Levetiracetam 500 mg/ Sodium (Chloride) 105 mls @ 210 mls/hr IVPB Q12 [facility] Last Admin: 07/09/17 08:45 Dose: 210 mls/hr Insulin Human Lispro (Humalog) 0 units SC ACHS [facility] PRN Reason: Protocol Last Admin: 07/09/17 06:48 Dose: Not Given Levothyroxine Sodium (Synthroid) 50 mcg PO DAILY@0630 [facility] Last Admin: 07/09/17 06:51 Dose: 50 mcg Metoprolol Tartrate (Lopressor) 5 mg IVP Q6 [facility] Last Admin: 07/09/17 04:10 Dose: 5 mg Pantoprazole Sodium (Protonix Inj) 40 mg IVP Q12 [facility] Last Admin: 07/09/17 08:42 Dose: 40 mg Sodium Bicarbonate (Sodium Bicarbonate Tab) 1,300 mg PO Q8 [facility] Last Admin: 07/02/17 16:23 Dose: 1,300 mg Thiamine HCl (Vitamin B1 Tab) 100 mg PO BID [facility] Last Admin: 07/09/17 08:41 Dose: 100 mg - Labs Labs: 07/09/17 04:40 07/09/17 04:40 PT 13.4 Seconds (9.8-13.1) H 07/08/17 12:50 INR 1.2 (0.9-1.2) 07/08/17 12:50 APTT 30.8 Seconds (25.6-37.1) 07/08/17 12:50
--- NOTE | 2017-07-09 11:32 | PN ---
DATE: ENDOCRINOLOGY FOLLOWUP NOTE LOCATION: In ICU, room 433. This is a 66-year-old male with recent admission for acute respiratory failure and subsequent endotracheal intubation and has since then improved clinically and hemodynamically as noted thereof. His glycemic levels are much improved at this time and have ranged from 68-90 mg/dL. The latest chemistry showed a BUN of 67, sodium 140, potassium 3.6, chloride 108, CO2 of 25, glucose 79 and creatinine 2.8. So at this time, we will actually lower the glipizide because of the variability and suboptimal meal portion noted and lower the glipizide to 2.5 mg before meals to start today as ordered. We will titrate incrementally as indicated to optimize metabolic control. We will also continue the low-dose correction scale using regular insulin as ordered. Moreover, his latest thyroid studies showed a T4 of 5.58 with a TSH of 5.55 and a free T4 of 0.70. So at this time, we will continue the low-dose levothyroxine replacement therapy given as 50 mcg once daily before breakfast as ordered. We will also obtain serial thyroid studies and titrate his dose regimen accordingly as indicated. He is also undergoing hematologic workup for marked anemia as noted. We will obtain serial chemistries and supplement accordingly as needed. We will follow. Bettina Mann MD
[2017-07-09] MEDS: Epoetin Alfa 20000 UNIT/ML Inj SC SCH (11:40)
--- NOTE | 2017-07-09 11:52 | PCM.PROC ---
Procedures Attestation:: I certify that I have explained the specified Operation(s) or Procedure(s), risks, benefits and reasonable alternatives to the Patient and/or other person responsible. The opportunity was given to ask questions and all questions answered - Central Line Placement Right Subclavian Triple Lumen Catheter Aseptic technique was employed throughout the procedure: Hand Hygiene done prior to procedure, Full sterile barriers (mask, hair cover, sterile gown, sterile gloves), Full body sterile drape, Chloraprep Antiseptic: 30 second prep for IJ or SC sites CVP Time Out Performed: Yes Pt. Placed on Pulse Ox Monitor: Yes Central Line Prep: Chlorhexidine-Alcohol Combination Local Anesthesia Used: Lidocaine 1% Amount of Anesthesia Used (mls): 5 Ultrasound Used for Placement: Yes Central Line Lumen Inserted: triple Central Line Length: 16 cm Post Procedure: Sutured in Place, Good Blood Return, All Ports Aspirated, Flushed, Capped, Sterile Dressing Applied Secured by: Suture Post procedure dressing: Clear vapor permeable, Chlorhexidine disc (Biopatch) Post Procedure X-Ray: Yes Patient Tolerated Procedure: Well Immediate Complications: None Additional Comments: Central Line placement with TLC placement into L subclavian performed by Dr. Alvarado Wagner under my complete supervision at the bedside. Procedure performed under emergent conditions in ICU, and under 2 physician consent between myself and the PMD, Dr. Kelley: due to poor peripheral venous access due to gross edema / anasarca involving the extremities and loss of current peripheral IV access. Post procedure CXR shows satisfactory placement of tip of TLC in SVC. No new PTX seen in L lung, existing L-sided chest tube position intact.
--- NOTE | 2017-07-09 11:54 | PCM.SURG1 ---
Surgeon's Initial Post Op Note - Surgeon's Notes Surgeon: Dr Wagner, Dr Mata Psychiatric Nurse Practitioner: Dr Vila Type of Anesthesia: Local (Lidocaine 1%) Pre-Operative Diagnosis: nephrotic syndrome, respiratory failure, pleural effusions, failure to wean Operative Findings: patent subclavian vein Post-Operative Diagnosis: as above Operation Performed: left subclavian vein triple lumen catheter. ultrasound confirmation at bedside. CXR ordered to confirm placement Specimen/Specimens Removed: none Estimated Blood Loss: EBL {In ML}: 10 Blood Products Given: N/A Drains Used: No Drains Post-Op Condition: Good Date of Surgery/Procedure: 07/09/17 Time of Surgery/Procedure: 11:54
--- NOTE | 2017-07-09 12:07 | CP.CCUPN ---
<Regina Maganamelita - Last Filed: 07/09/17 14:36> CCU Subjective - Physician Review Subjective (Free Text): 66 year old male with PMH of HTN, CKD, nephrotic syndrome, chronic left sided pleural effusion admitted for hypothermia, AMS with acute hypercapnia respiratory failure on 06/22, subsequently developed acute hypoxic respiratory failure, cardiac arrest required intubation on 06/29/17. Patient was extubated on 07/02/17. Patient was intubated on 07/04/17. Patient awake this morning on mechanical ventilation, he is more alert. Day #1 : Left sided chest tube in place: total output 840cc. Tube is to suction. Patient more alert today. His anemia improved s/p transfusion with 2 units PRBCs. All Labs and Imaging reviewed. Positive fluid balance. Antibiotics: 06/22/17: Azithro/Rocephin/Vancomycin x 1 dose 06/23/17: Zosyn x 1 dose 06/25/17: Zyvox - 06/25/17- present (Day 15) 06/26/17: Maxipime 06/26/17- present (Day 14) 07/01/17: Mycamine -07/01/17- present (day 9) #. Acute respiratory failure secondary to HCAP and pleural effusions # Anemia likely 2' to acute blood loss, pending FOBT, s/p transfusion 2units PRBC on 07/08 #. Thrombocytopenia, stable etiology unknown. #. Hyperprolactinemia, possibly 2' to seizures #. 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 Hypothyroidism #. NIDDM2 #. DVT/GI Prophylaxis Plan: - Consider d/c Antibiotics. ID will see pt today. - rule out GI bleed, continue with protonix, awaiting results of FOBT sent 07/08 - Will give Lasix 60mg due to positive fluid balance, follow urine output - Continue with Keppra for seizures - CPAP trial Patient seen and examined with Dr. Mata on bedside rounds. Case discussed with primary team. CCU Objective - Vital Signs / Intake & Output Vital Signs (Last 4 hours): Vital Signs Pulse Resp BP Pulse Ox 07/09/17 10:00 76 27 H 169/64 H 99 07/09/17 08:45 75 161/60 H 07/09/17 08:43 75 161/60 H Intake and Output (Last 8hrs): Intake & Output 07/08/17 07/09/17 07/09/17 22:59 06:59 14:59 Intake Total 2494 631 Output Total 1300 530 Balance 1194 101 Intake: IV 4 16 Intake, Piggyback 1000 Tube Feeding 540 315 Blood Product 650 Free Water Flush 300 300 Output: Chest Tube Drainage 800 30 Left Mid-Axillary Chest 800 30 Urine 500 500 Urethral (Salazar) 500 500 Other: # Bowel Movements 2 1 - Physical Exam Head: Positive for: Atraumatic, Normocephalic Pupils: Positive for: PERRL Conjunctiva: Positive for: Normal Respiratory/Chest: Positive for: Good Air Exchange (on mechancal ventilation), Decreased Breath Sounds (left side) Cardiovascular: Positive for: Regular Rate and Rhythm. Negative for: Tachycardic, Bradycardic Abdomen: Negative for: Tenderness, Distention Genitourinary Male: Positive for: Penile Swelling, Testicle Swelling Upper Extremity: Positive for: Edema (bilateral, right > left) Lower Extremity: Negative for: Tenderness Neurological: Positive for: Other (somnolent, arousable, intubated, following commands) - Medications Active Medications: Active Medications Generic Name Dose Route Start Last Admin Trade Name Freq PRN Reason Stop Dose Admin Albuterol/Ipratropium 3 ml 06/28/17 16:00 07/09/17 11:40 Duoneb 3 Mg/0.5 Mg (3 Ml) Ud INH 3 ml RQID THOMAS Administration Amlodipine Besylate 10 mg 07/05/17 09:00 07/09/17 08:43 Norvasc PO 10 mg DAILY THOMAS Administration Bacitracin 1 applic 06/27/17 13:00 07/09/17 08:39 Bacitracin Oint TOP 1 applic TID THOMAS Administration Calcium Acetate 2,001 mg 07/05/17 08:30 07/09/17 08:42 Phoslo PO 2,001 mg 0830,1200,1830 THOMAS Administration Dextrose 0 ml 06/22/17 22:36 Dextrose 50% Inj IV STAT PRN Hypoglycemia Protocol Protocol Dextrose 0 gm 06/22/17 22:36 Glutose 15 PO ONCE PRN Hypoglycemia Protocol Protocol Enoxaparin Sodium 30 mg 07/02/17 09:00 07/09/17 08:45 Lovenox SC 30 mg DAILY THOMAS Administration Protocol Epoetin Roel 14,000 unit 07/07/17 09:00 07/09/17 11:40 Procrit SC 14,000 unit MWF THOMAS Administration Glipizide 2.5 mg 07/09/17 16:30 Glucotrol PO BIDAC THOMAS Glucagon 0 mg 06/22/17 22:36 Glucagen Diagnostic Kit IM STAT PRN Hypoglycemia Protocol Protocol Hydralazine HCl 25 mg 07/02/17 01:00 07/09/17 08:45 Apresoline PO 25 mg Q8 THOMAS Administration Hydromorphone HCl 0.5 mg 07/08/17 23:36 Dilaudid IVP 07/10/17 18:54 Q4H PRN Pain, moderate (4-7) Linezolid 600 mg in 300 mls @ 300 mls/hr 06/25/17 21:00 07/09/17 08:41 Zyvox 600mg/300ml D5w IVPB 300 mls/hr Q12 THOMAS Administration Protocol Cefepime HCl 1 gm/ Sodium 100 mls @ 100 mls/hr 06/26/17 09:00 07/09/17 08:46 Chloride IVPB 100 mls/hr DAILY THOMAS Administration Protocol Micafungin Sodium 100 mg/ 100 mls @ 100 mls/hr 07/01/17 13:45 07/09/17 08:43 Sodium Chloride IVPB 100 mls/hr DAILY THOMAS Administration Protocol Levetiracetam 500 mg/ Sodium 105 mls @ 210 mls/hr 07/04/17 21:00 07/09/17 08: 45 Chloride IVPB 210 mls/hr Q12 THOMAS Administration Insulin Human Lispro 0 units 07/07/17 16:30 07/09/17 06:48 Humalog SC Not Given ACHS THOMAS Protocol Levothyroxine Sodium 50 mcg 07/05/17 06:30 07/09/17 06:51 Synthroid PO 50 mcg DAILY@0630 THOMAS Administration Metoprolol Tartrate 5 mg 07/03/17 15:24 07/09/17 04:10 Lopressor IVP 5 mg Q6 THOMAS Administration Pantoprazole Sodium 40 mg 07/08/17 21:00 07/09/17 08:42 Protonix Inj IVP 40 mg Q12 THOMAS Administration Sodium Bicarbonate 1,300 mg 06/30/17 17:00 07/02/17 16:23 Sodium Bicarbonate Tab PO 1,300 mg Q8 THOMAS Administration Thiamine HCl 100 mg 06/24/17 21:30 07/09/17 08:41 Vitamin B1 Tab PO 100 mg BID THOMAS Administration - Patient Studies Lab Studies: Microbiology Studies 07/01/17 10:01 Fungal Culture - Final Sputum Jenny Albicans 07/07/17 06:17 Mycobacterial Culture - Preliminary Other: Please Indicate 07/06/17 10:31 Mycobacterial Culture - Preliminary Other: Please Indicate 06/25/17 16:51 Fungal Culture - Preliminary Pleural Fluid NO FUNGUS GROWTH IN 1 WEEK. Lab Studies 07/09/17 07/09/17 07/09/17 Range/Units 08:32 05:51 05:16 WBC (4.8-10.8) K/uL RBC (4.40-5.90) Mil/uL Hgb (12.0-18.0) g/dL Hct (35.0-51.0) % MCV (80.0-94.0) fl MCH (27.0-31.0) pg MCHC (33.0-37.0) g/dL RDW (11.5-14.5) % Plt Count (130-400) K/uL PT (9.8-13.1) Seconds INR (0.9-1.2) APTT (25.6-37.1) Seconds Fibrinogen (200-400) mg/dl pCO2 38 (35-45) mm/Hg pO2 129 H (80-100) mm/Hg HCO3 24.7 (21-28) mmol/L ABG pH 7.41 (7.35-7.45) ABG Total CO2 25.3 (22-28) mmol/L ABG O2 Saturation 100.5 H (95-98) % ABG O2 Content 11.7 L (15-23) ML/dL ABG Base Excess -0.4 (-2.0-3.0) mmol/L ABG Hemoglobin 8.3 L (11.7-17.4) g/dL ABG Carboxyhemoglobin 1.7 H (0.5-1.5) % POC ABG HHb (Measured) -0.5 L (0.0-5.0) % ABG Methemoglobin 0.5 (0.0-3.0) % ABG O2 Capacity 11.6 L (16-24) mL/dL Andry Test Yes A-a O2 Difference 109.0 mm/Hg Hgb O2 Saturation 98.3 H (95.0-98.0) % Vent Mode A/c Mechanical Rate 14 FiO2 40.0 % Tidal Volume 400 PEEP 5 Sodium (132-148) mmol/l Potassium (3.6-5.0) MMOL/L Chloride (98-107) mmol/L Carbon Dioxide (22-30) mmol/L Anion Gap (10-20) BUN (9-20) mg/dl Creatinine (0.8-1.5) mg/dl Est GFR ( Amer) Est GFR (Non-Af Amer) POC Glucose (mg/dL) 90 68 (65-110) mg/dL Random Glucose (75-110) mg/dL Calcium (8.4-10.2) mg/dL Total Bilirubin (0.2-1.3) mg/dl AST (17-59) U/L ALT (21-72) U/L Alkaline Phosphatase (38-126) U/L Total Protein (6.3-8.2) G/DL Albumin (3.5-5.0) g/dL Globulin (2.2-3.9) gm/dL Albumin/Globulin Ratio (1.0-2.1) Procalcitonin (0.19-0.49) NG/ML Urine Color (YELLOW) Urine Clarity (Clear) Urine pH (5.0-8.0) Ur Specific Echo (1.003-1.030) Urine Protein (NEGATIVE) mg/dL Urine Glucose (UA) (Normal) mg/dL Urine Ketones (NEGATIVE) mg/dL Urine Blood (NEGATIVE) Urine Nitrate (NEGATIVE) Urine Bilirubin (NEGATIVE) Urine Urobilinogen (0.2-1.0) mg/dL Ur Leukocyte Esterase (Negative) Justino/uL Urine RBC (Auto) (0-3) /hpf Urine Microscopic WBC (0-5) /hpf Ur Squamous Epith Cells (0-5) /hpf Amorphous Sediment (<OCC) /ul Urine Bacteria (<OCC) Granular Casts (Auto) (0-1) /lpf Fluid Glucose (NONE ESTABLISHED) mg/dL Fluid Total Protein (NONE ESTABLISHED) g/dL Fluid LDH (NONE ESTABLISHED) IU Blood Type Antibody Screen Crossmatch BBK History Checked 07/09/17 07/09/17 07/08/17 Range/Units 04:40 04:40 21:50 WBC 4.1 L (4.8-10.8) K/uL RBC 2.56 L (4.40-5.90) Mil/uL Hgb 7.8 L (12.0-18.0) g/dL Hct 23.7 L (35.0-51.0) % MCV 92.5 (80.0-94.0) fl MCH 30.4 (27.0-31.0) pg MCHC 32.9 L (33.0-37.0) g/dL RDW 15.5 H (11.5-14.5) % Plt Count 77 L (130-400) K/uL PT (9.8-13.1) Seconds INR (0.9-1.2) APTT (25.6-37.1) Seconds Fibrinogen (200-400) mg/dl pCO2 (35-45) mm/Hg pO2 (80-100) mm/Hg HCO3 (21-28) mmol/L ABG pH (7.35-7.45) ABG Total CO2 (22-28) mmol/L ABG O2 Saturation (95-98) % ABG O2 Content (15-23) ML/dL ABG Base Excess (-2.0-3.0) mmol/L ABG Hemoglobin (11.7-17.4) g/dL ABG Carboxyhemoglobin (0.5-1.5) % POC ABG HHb (Measured) (0.0-5.0) % ABG Methemoglobin (0.0-3.0) % ABG O2 Capacity (16-24) mL/dL Andry Test A-a O2 Difference mm/Hg Hgb O2 Saturation (95.0-98.0) % Vent Mode Mechanical Rate FiO2 % Tidal Volume PEEP Sodium 140 (132-148) mmol/l Potassium 3.6 (3.6-5.0) MMOL/L Chloride 108 H (98-107) mmol/L Carbon Dioxide 25 (22-30) mmol/L Anion Gap 11 (10-20) BUN 67 H (9-20) mg/dl Creatinine 2.8 H (0.8-1.5) mg/dl Est GFR ( Amer) 28 Est GFR (Non-Af Amer) 23 POC Glucose (mg/dL) 77 (65-110) mg/dL Random Glucose 79 (75-110) mg/dL Calcium 8.1 L (8.4-10.2) mg/dL Total Bilirubin 0.4 (0.2-1.3) mg/dl AST 18 (17-59) U/L ALT 37 (21-72) U/L Alkaline Phosphatase 116 (38-126) U/L Total Protein 5.0 L (6.3-8.2) G/DL Albumin 2.4 L (3.5-5.0) g/dL Globulin 2.6 (2.2-3.9) gm/dL Albumin/Globulin Ratio 0.9 L (1.0-2.1) Procalcitonin (0.19-0.49) NG/ML Urine Color (YELLOW) Urine Clarity (Clear) Urine pH (5.0-8.0) Ur Specific Echo (1.003-1.030) Urine Protein (NEGATIVE) mg/dL Urine Glucose (UA) (Normal) mg/dL Urine Ketones (NEGATIVE) mg/dL Urine Blood (NEGATIVE) Urine Nitrate (NEGATIVE) Urine Bilirubin (NEGATIVE) Urine Urobilinogen (0.2-1.0) mg/dL Ur Leukocyte Esterase (Negative) Justino/uL Urine RBC (Auto) (0-3) /hpf Urine Microscopic WBC (0-5) /hpf Ur Squamous Epith Cells (0-5) /hpf Amorphous Sediment (<OCC) /ul Urine Bacteria (<OCC) Granular Casts (Auto) (0-1) /lpf Fluid Glucose (NONE ESTABLISHED) mg/dL Fluid Total Protein (NONE ESTABLISHED) g/dL Fluid LDH (NONE ESTABLISHED) IU Blood Type Antibody Screen Crossmatch BBK History Checked 07/08/17 07/08/17 07/08/17 Range/Units 17:06 15:54 12:50 WBC (4.8-10.8) K/uL RBC (4.40-5.90) Mil/uL Hgb (12.0-18.0) g/dL Hct (35.0-51.0) % MCV (80.0-94.0) fl MCH (27.0-31.0) pg MCHC (33.0-37.0) g/dL RDW (11.5-14.5) % Plt Count (130-400) K/uL PT 13.4 H (9.8-13.1) Seconds INR 1.2 (0.9-1.2) APTT 30.8 (25.6-37.1) Seconds Fibrinogen 596 H (200-400) mg/dl pCO2 (35-45) mm/Hg pO2 (80-100) mm/Hg HCO3 (21-28) mmol/L ABG pH (7.35-7.45) ABG Total CO2 (22-28) mmol/L ABG O2 Saturation (95-98) % ABG O2 Content (15-23) ML/dL ABG Base Excess (-2.0-3.0) mmol/L ABG Hemoglobin (11.7-17.4) g/dL ABG Carboxyhemoglobin (0.5-1.5) % POC ABG HHb (Measured) (0.0-5.0) % ABG Methemoglobin (0.0-3.0) % ABG O2 Capacity (16-24) mL/dL Andry Test A-a O2 Difference mm/Hg Hgb O2 Saturation (95.0-98.0) % Vent Mode Mechanical Rate FiO2 % Tidal Volume PEEP Sodium (132-148) mmol/l Potassium (3.6-5.0) MMOL/L Chloride (98-107) mmol/L Carbon Dioxide (22-30) mmol/L Anion Gap (10-20) BUN (9-20) mg/dl Creatinine (0.8-1.5) mg/dl Est GFR ( Amer) Est GFR (Non-Af Amer) POC Glucose (mg/dL) 112 H (65-110) mg/dL Random Glucose (75-110) mg/dL Calcium (8.4-10.2) mg/dL Total Bilirubin (0.2-1.3) mg/dl AST (17-59) U/L ALT (21-72) U/L Alkaline Phosphatase (38-126) U/L Total Protein (6.3-8.2) G/DL Albumin (3.5-5.0) g/dL Globulin (2.2-3.9) gm/dL Albumin/Globulin Ratio (1.0-2.1) Procalcitonin (0.19-0.49) NG/ML Urine Color (YELLOW) Urine Clarity (Clear) Urine pH (5.0-8.0) Ur Specific Echo (1.003-1.030) Urine Protein (NEGATIVE) mg/dL Urine Glucose (UA) (Normal) mg/dL Urine Ketones (NEGATIVE) mg/dL Urine Blood (NEGATIVE) Urine Nitrate (NEGATIVE) Urine Bilirubin (NEGATIVE) Urine Urobilinogen (0.2-1.0) mg/dL Ur Leukocyte Esterase (Negative) Justino/uL Urine RBC (Auto) (0-3) /hpf Urine Microscopic WBC (0-5) /hpf Ur Squamous Epith Cells (0-5) /hpf Amorphous Sediment (<OCC) /ul Urine Bacteria (<OCC) Granular Casts (Auto) (0-1) /lpf Fluid Glucose 119 (NONE ESTABLISHED) mg/dL Fluid Total Protein < 2.0 (NONE ESTABLISHED) g/dL Fluid LDH 374 (NONE ESTABLISHED) IU Blood Type Antibody Screen Crossmatch BBK History Checked 07/08/17 07/08/17 07/08/17 Range/Units 12:30 07:45 05:00 WBC (4.8-10.8) K/uL RBC (4.40-5.90) Mil/uL Hgb (12.0-18.0) g/dL Hct (35.0-51.0) % MCV (80.0-94.0) fl MCH (27.0-31.0) pg MCHC (33.0-37.0) g/dL RDW (11.5-14.5) % Plt Count (130-400) K/uL PT (9.8-13.1) Seconds INR (0.9-1.2) APTT (25.6-37.1) Seconds Fibrinogen (200-400) mg/dl pCO2 (35-45) mm/Hg pO2 (80-100) mm/Hg HCO3 (21-28) mmol/L ABG pH (7.35-7.45) ABG Total CO2 (22-28) mmol/L ABG O2 Saturation (95-98) % ABG O2 Content (15-23) ML/dL ABG Base Excess (-2.0-3.0) mmol/L ABG Hemoglobin (11.7-17.4) g/dL ABG Carboxyhemoglobin (0.5-1.5) % POC ABG HHb (Measured) (0.0-5.0) % ABG Methemoglobin (0.0-3.0) % ABG O2 Capacity (16-24) mL/dL Andry Test A-a O2 Difference mm/Hg Hgb O2 Saturation (95.0-98.0) % Vent Mode Mechanical Rate FiO2 % Tidal Volume PEEP Sodium (132-148) mmol/l Potassium (3.6-5.0) MMOL/L Chloride (98-107) mmol/L Carbon Dioxide (22-30) mmol/L Anion Gap (10-20) BUN (9-20) mg/dl Creatinine (0.8-1.5) mg/dl Est GFR ( Amer) Est GFR (Non-Af Amer) POC Glucose (mg/dL) (65-110) mg/dL Random Glucose (75-110) mg/dL Calcium (8.4-10.2) mg/dL Total Bilirubin (0.2-1.3) mg/dl AST (17-59) U/L ALT (21-72) U/L Alkaline Phosphatase (38-126) U/L Total Protein (6.3-8.2) G/DL Albumin (3.5-5.0) g/dL Globulin (2.2-3.9) gm/dL Albumin/Globulin Ratio (1.0-2.1) Procalcitonin 0.97 H (0.19-0.49) NG/ML Urine Color Yellow (YELLOW) Urine Clarity Turbid (Clear) Urine pH 6.0 (5.0-8.0) Ur Specific Echo 1.012 (1.003-1.030) Urine Protein >=500 (NEGATIVE) mg/dL Urine Glucose (UA) 150 (Normal) mg/dL Urine Ketones Negative (NEGATIVE) mg/dL Urine Blood Small (NEGATIVE) Urine Nitrate Negative (NEGATIVE) Urine Bilirubin Negative (NEGATIVE) Urine Urobilinogen 0.2-1.0 (0.2-1.0) mg/dL Ur Leukocyte Esterase Neg (Negative) Justino/uL Urine RBC (Auto) 14 H (0-3) /hpf Urine Microscopic WBC 20 H (0-5) /hpf Ur Squamous Epith Cells 2 (0-5) /hpf Amorphous Sediment Occ H (<OCC) /ul Urine Bacteria Occ H (<OCC) Granular Casts (Auto) 3 (0-1) /lpf Fluid Glucose (NONE ESTABLISHED) mg/dL Fluid Total Protein (NONE ESTABLISHED) g/dL Fluid LDH (NONE ESTABLISHED) IU Blood Type A NEGATIVE Antibody Screen Negative Crossmatch See Detail BBK History Checked Patient has bt 07/06/17 Range/Units 15:15 WBC (4.8-10.8) K/uL RBC (4.40-5.90) Mil/uL Hgb (12.0-18.0) g/dL Hct (35.0-51.0) % MCV (80.0-94.0) fl MCH (27.0-31.0) pg MCHC (33.0-37.0) g/dL RDW (11.5-14.5) % Plt Count (130-400) K/uL PT (9.8-13.1) Seconds INR (0.9-1.2) APTT (25.6-37.1) Seconds Fibrinogen (200-400) mg/dl pCO2 (35-45) mm/Hg pO2 (80-100) mm/Hg HCO3 (21-28) mmol/L ABG pH (7.35-7.45) ABG Total CO2 (22-28) mmol/L ABG O2 Saturation (95-98) % ABG O2 Content (15-23) ML/dL ABG Base Excess (-2.0-3.0) mmol/L ABG Hemoglobin (11.7-17.4) g/dL ABG Carboxyhemoglobin (0.5-1.5) % POC ABG HHb (Measured) (0.0-5.0) % ABG Methemoglobin (0.0-3.0) % ABG O2 Capacity (16-24) mL/dL Andry Test A-a O2 Difference mm/Hg Hgb O2 Saturation (95.0-98.0) % Vent Mode Mechanical Rate FiO2 % Tidal Volume PEEP Sodium (132-148) mmol/l Potassium (3.6-5.0) MMOL/L Chloride (98-107) mmol/L Carbon Dioxide (22-30) mmol/L Anion Gap (10-20) BUN (9-20) mg/dl Creatinine (0.8-1.5) mg/dl Est GFR ( Amer) Est GFR (Non-Af Amer) POC Glucose (mg/dL) (65-110) mg/dL Random Glucose (75-110) mg/dL Calcium (8.4-10.2) mg/dL Total Bilirubin (0.2-1.3) mg/dl AST (17-59) U/L ALT (21-72) U/L Alkaline Phosphatase (38-126) U/L Total Protein (6.3-8.2) G/DL Albumin (3.5-5.0) g/dL Globulin (2.2-3.9) gm/dL Albumin/Globulin Ratio (1.0-2.1) Procalcitonin (0.19-0.49) NG/ML Urine Color (YELLOW) Urine Clarity (Clear) Urine pH (5.0-8.0) Ur Specific Echo (1.003-1.030) Urine Protein (NEGATIVE) mg/dL Urine Glucose (UA) (Normal) mg/dL Urine Ketones (NEGATIVE) mg/dL Urine Blood (NEGATIVE) Urine Nitrate (NEGATIVE) Urine Bilirubin (NEGATIVE) Urine Urobilinogen (0.2-1.0) mg/dL Ur Leukocyte Esterase (Negative) Justino/uL Urine RBC (Auto) (0-3) /hpf Urine Microscopic WBC (0-5) /hpf Ur Squamous Epith Cells (0-5) /hpf Amorphous Sediment (<OCC) /ul Urine Bacteria (<OCC) Granular Casts (Auto) (0-1) /lpf Fluid Glucose (NONE ESTABLISHED) mg/dL Fluid Total Protein (NONE ESTABLISHED) g/dL Fluid LDH (NONE ESTABLISHED) IU Blood Type A NEGATIVE Antibody Screen Negative Crossmatch See Detail BBK History Checked Patient has bt Laboratory Results - last 24 hr 07/06/17 07/08/17 07/08/17 15:15 05:00 07:45 WBC RBC Hgb Hct MCV MCH MCHC RDW Plt Count PT INR APTT Fibrinogen pCO2 pO2 HCO3 ABG pH ABG Total CO2 ABG O2 Saturation ABG O2 Content ABG Base Excess ABG Hemoglobin ABG Carboxyhemoglobin POC ABG HHb (Measured) ABG Methemoglobin ABG O2 Capacity Andry Test A-a O2 Difference Hgb O2 Saturation Vent Mode Mechanical Rate FiO2 Tidal Volume PEEP Sodium Potassium Chloride Carbon Dioxide Anion Gap BUN Creatinine Est GFR ( Amer) Est GFR (Non-Af Amer) POC Glucose (mg/dL) Random Glucose Calcium Total Bilirubin AST ALT Alkaline Phosphatase Total Protein Albumin Globulin Albumin/Globulin Ratio Procalcitonin 0.97 H Urine Color Urine Clarity Urine pH Ur Specific Echo Urine Protein Urine Glucose (UA) Urine Ketones Urine Blood Urine Nitrate Urine Bilirubin Urine Urobilinogen Ur Leukocyte Esterase Urine RBC (Auto) Urine Microscopic WBC Ur Squamous Epith Cells Amorphous Sediment Urine Bacteria Granular Casts (Auto) Fluid Glucose Fluid Total Protein Fluid LDH Blood Type A NEGATIVE A NEGATIVE Antibody Screen Negative Negative Crossmatch See Detail See Detail BBK History Checked Patient has bt Patient has bt 07/08/17 07/08/17 07/08/17 12:30 12:50 15:54 WBC RBC Hgb Hct MCV MCH MCHC RDW Plt Count PT 13.4 H INR 1.2 APTT 30.8 Fibrinogen 596 H pCO2 pO2 HCO3 ABG pH ABG Total CO2 ABG O2 Saturation ABG O2 Content ABG Base Excess ABG Hemoglobin ABG Carboxyhemoglobin POC ABG HHb (Measured) ABG Methemoglobin ABG O2 Capacity Andry Test A-a O2 Difference Hgb O2 Saturation Vent Mode Mechanical Rate FiO2 Tidal Volume PEEP Sodium Potassium Chloride Carbon Dioxide Anion Gap BUN Creatinine Est GFR ( Amer) Est GFR (Non-Af Amer) POC Glucose (mg/dL) Random Glucose Calcium Total Bilirubin AST ALT Alkaline Phosphatase Total Protein Albumin Globulin Albumin/Globulin Ratio Procalcitonin Urine Color Yellow Urine Clarity Turbid Urine pH 6.0 Ur Specific Echo 1.012 Urine Protein >=500 Urine Glucose (UA) 150 Urine Ketones Negative Urine Blood Small Urine Nitrate Negative Urine Bilirubin Negative Urine Urobilinogen 0.2-1.0 Ur Leukocyte Esterase Neg Urine RBC (Auto) 14 H Urine Microscopic WBC 20 H Ur Squamous Epith Cells 2 Amorphous Sediment Occ H Urine Bacteria Occ H Granular Casts (Auto) 3 Fluid Glucose 119 Fluid Total Protein < 2.0 Fluid LDH 374 Blood Type Antibody Screen Crossmatch BBK History Checked 07/08/17 07/08/17 07/09/17 17:06 21:50 04:40 WBC 4.1 L RBC 2.56 L Hgb 7.8 L Hct 23.7 L MCV 92.5 MCH 30.4 MCHC 32.9 L RDW 15.5 H Plt Count 77 L PT INR APTT Fibrinogen pCO2 pO2 HCO3 ABG pH ABG Total CO2 ABG O2 Saturation ABG O2 Content ABG Base Excess ABG Hemoglobin ABG Carboxyhemoglobin POC ABG HHb (Measured) ABG Methemoglobin ABG O2 Capacity Andry Test A-a O2 Difference Hgb O2 Saturation Vent Mode Mechanical Rate FiO2 Tidal Volume PEEP Sodium Potassium Chloride Carbon Dioxide Anion Gap BUN Creatinine Est GFR ( Amer) Est GFR (Non-Af Amer) POC Glucose (mg/dL) 112 H 77 Random Glucose Calcium Total Bilirubin AST ALT Alkaline Phosphatase Total Protein Albumin Globulin Albumin/Globulin Ratio Procalcitonin Urine Color Urine Clarity Urine pH Ur Specific Echo Urine Protein Urine Glucose (UA) Urine Ketones Urine Blood Urine Nitrate Urine Bilirubin Urine Urobilinogen Ur Leukocyte Esterase Urine RBC (Auto) Urine Microscopic WBC Ur Squamous Epith Cells Amorphous Sediment Urine Bacteria Granular Casts (Auto) Fluid Glucose Fluid Total Protein Fluid LDH Blood Type Antibody Screen Crossmatch BBK History Checked 07/09/17 07/09/17 07/09/17 04:40 05:16 05:51 WBC RBC Hgb Hct MCV MCH MCHC RDW Plt Count PT INR APTT Fibrinogen pCO2 38 pO2 129 H HCO3 24.7 ABG pH 7.41 ABG Total CO2 25.3 ABG O2 Saturation 100.5 H ABG O2 Content 11.7 L ABG Base Excess -0.4 ABG Hemoglobin 8.3 L ABG Carboxyhemoglobin 1.7 H POC ABG HHb (Measured) -0.5 L ABG Methemoglobin 0.5 ABG O2 Capacity 11.6 L Andry Test Yes A-a O2 Difference 109.0 Hgb O2 Saturation 98.3 H Vent Mode A/c Mechanical Rate 14 FiO2 40.0 Tidal Volume 400 PEEP 5 Sodium 140 Potassium 3.6 Chloride 108 H Carbon Dioxide 25 Anion Gap 11 BUN 67 H Creatinine 2.8 H Est GFR ( Amer) 28 Est GFR (Non-Af Amer) 23 POC Glucose (mg/dL) 68 Random Glucose 79 Calcium 8.1 L Total Bilirubin 0.4 AST 18 ALT 37 Alkaline Phosphatase 116 Total Protein 5.0 L Albumin 2.4 L Globulin 2.6 Albumin/Globulin Ratio 0.9 L Procalcitonin Urine Color Urine Clarity Urine pH Ur Specific Echo Urine Protein Urine Glucose (UA) Urine Ketones Urine Blood Urine Nitrate Urine Bilirubin Urine Urobilinogen Ur Leukocyte Esterase Urine RBC (Auto) Urine Microscopic WBC Ur Squamous Epith Cells Amorphous Sediment Urine Bacteria Granular Casts (Auto) Fluid Glucose Fluid Total Protein Fluid LDH Blood Type Antibody Screen Crossmatch BBK History Checked 07/09/17 08:32 WBC RBC Hgb Hct MCV MCH MCHC RDW Plt Count PT INR APTT Fibrinogen pCO2 pO2 HCO3 ABG pH ABG Total CO2 ABG O2 Saturation ABG O2 Content ABG Base Excess ABG Hemoglobin ABG Carboxyhemoglobin POC ABG HHb (Measured) ABG Methemoglobin ABG O2 Capacity Andry Test A-a O2 Difference Hgb O2 Saturation Vent Mode Mechanical Rate FiO2 Tidal Volume PEEP Sodium Potassium Chloride Carbon Dioxide Anion Gap BUN Creatinine Est GFR ( Amer) Est GFR (Non-Af Amer) POC Glucose (mg/dL) 90 Random Glucose Calcium Total Bilirubin AST ALT Alkaline Phosphatase Total Protein Albumin Globulin Albumin/Globulin Ratio Procalcitonin Urine Color Urine Clarity Urine pH Ur Specific Echo Urine Protein Urine Glucose (UA) Urine Ketones Urine Blood Urine Nitrate Urine Bilirubin Urine Urobilinogen Ur Leukocyte Esterase Urine RBC (Auto) Urine Microscopic WBC Ur Squamous Epith Cells Amorphous Sediment Urine Bacteria Granular Casts (Auto) Fluid Glucose Fluid Total Protein Fluid LDH Blood Type Antibody Screen Crossmatch BBK History Checked Fingerstick Blood Sugar Results: 68 <Ervin Mata - Last Filed: 07/09/17 19:00> CCU Subjective - Physician Review Subjective (Free Text): Attestation: Patient seen and examined at the bedside with Resident Dr. Tita Magana; and I agree with her outline of plans and management documented above as discussed on AM rounds reflecting my review of all applicable clinical data, and participation in the care of the patient throughout the day in ICU; July 09, 2017.
--- NOTE | 2017-07-09 12:39 | RAD ---
HISTORY: Intubated COMPARISON: 07/08/2017. FINDINGS: The endotracheal tube terminates 2.6 cm proximal to the endy. The nasogastric tube terminates in the stomach. LUNGS: There is improving haziness in the right lower lobe and persistent small left pleural effusion. There is mild pulmonary venous congestion. PLEURA: There is the small left pleural effusion, no pneumothorax apparent. CARDIOVASCULAR: Stable. Atherosclerotic aortic arch calcifications are present. OSSEOUS STRUCTURES: No significant abnormalities. VISUALIZED UPPER ABDOMEN: Normal. OTHER FINDINGS: None. IMPRESSION: 1. Improving right pleural effusion versus lower lobe pneumonia. 2. Small left pleural effusion. Underlying atelectasis/pneumonia cannot be excluded. Follow-up is advised.
--- NOTE | 2017-07-09 12:47 | RAD ---
PROCEDURE: CHEST RADIOGRAPH, 1 VIEW HISTORY: s/p subclavian central line placement COMPARISON: 07/09/2017 at 4:32 a.m.. FINDINGS: The endotracheal tube terminates 2.1 cm proximal to the endy. The nasogastric tube terminates in the distal esophagus. The left subclavian line terminates in the proximal SVC/brachiocephalic junction. LUNGS: Clear. PLEURA: No pneumothorax. Worsening right pleural effusion and small stable left pleural effusion. CARDIOVASCULAR: Normal. OSSEOUS STRUCTURES: No significant abnormalities. VISUALIZED UPPER ABDOMEN: Normal. OTHER FINDINGS: None. IMPRESSION: 1. The left subclavian line terminates in the SVC/brachiocephalic junction. 2. Worsening right pleural effusion and stable small left pleural effusion. 3. The nasogastric tube likely terminates in the distal esophagus. Repositioning is advised.
--- NOTE | 2017-07-09 14:08 | CP.PCM.PN ---
Subjective - Date & Time of Evaluation Date of Evaluation: 07/09/17 Time of Evaluation: 07:00 - Subjective Subjective: no fever or leukocytosis sedated on vent NAD Objective - Vital Signs/Intake and Output Vital Signs (last 24 hours): Temp Pulse Resp BP Pulse Ox 99.1 F 87 29 H 148/56 L 97 07/09/17 12:00 07/09/17 12:00 07/09/17 12:00 07/09/17 12:00 07/09/17 12:00 Intake and Output: 07/09/17 07/09/17 06:59 18:59 Intake Total 1035 Output Total 530 Balance 505 - Medications Medications: Current Medications Albuterol/Ipratropium (Duoneb 3 Mg/0.5 Mg (3 Ml) Ud) 3 ml INH RQID [facility] Last Admin: 07/09/17 11:40 Dose: 3 ml Amlodipine Besylate (Norvasc) 10 mg PO DAILY [facility] Last Admin: 07/09/17 08:43 Dose: 10 mg Bacitracin (Bacitracin Oint) 1 applic TOP TID [facility] Last Admin: 07/09/17 08:39 Dose: 1 applic Calcium Acetate (Phoslo) 2,001 mg PO 0830,1200,1830 [facility] Last Admin: 07/09/17 12:00 Dose: 2,001 mg Dextrose (Dextrose 50% Inj) 0 ml IV STAT PRN; Protocol PRN Reason: Hypoglycemia Protocol Dextrose (Glutose 15) 0 gm PO ONCE PRN; Protocol PRN Reason: Hypoglycemia Protocol Enoxaparin Sodium (Lovenox) 30 mg SC DAILY [facility] PRN Reason: Protocol Last Admin: 07/09/17 08:45 Dose: 30 mg Epoetin Roel (Procrit) 14,000 unit SC MWF [facility] Last Admin: 07/09/17 11:40 Dose: 14,000 unit Glipizide (Glucotrol) 2.5 mg PO BIDAC [facility] Glucagon (Glucagen Diagnostic Kit) 0 mg IM STAT PRN; Protocol PRN Reason: Hypoglycemia Protocol Hydralazine HCl (Apresoline) 25 mg PO Q8 [facility] Last Admin: 07/09/17 08:45 Dose: 25 mg Hydromorphone HCl (Dilaudid) 0.5 mg IVP Q4H PRN PRN Reason: Pain, moderate (4-7) Stop: 07/10/17 18:54 Linezolid (Zyvox 600mg/300ml D5w) 600 mg in 300 mls @ 300 mls/hr IVPB Q12 [facility] PRN Reason: Protocol Last Admin: 07/09/17 08:41 Dose: 300 mls/hr Cefepime HCl 1 gm/ Sodium (Chloride) 100 mls @ 100 mls/hr IVPB DAILY [facility] PRN Reason: Protocol Last Admin: 07/09/17 08:46 Dose: 100 mls/hr Micafungin Sodium 100 mg/ (Sodium Chloride) 100 mls @ 100 mls/hr IVPB DAILY [facility] PRN Reason: Protocol Last Admin: 07/09/17 08:43 Dose: 100 mls/hr Levetiracetam 500 mg/ Sodium (Chloride) 105 mls @ 210 mls/hr IVPB Q12 [facility] Last Admin: 07/09/17 08:45 Dose: 210 mls/hr Insulin Human Lispro (Humalog) 0 units SC ACHS [facility] PRN Reason: Protocol Last Admin: 07/09/17 12:06 Dose: Not Given Levothyroxine Sodium (Synthroid) 50 mcg PO DAILY@0630 [facility] Last Admin: 07/09/17 06:51 Dose: 50 mcg Metoprolol Tartrate (Lopressor) 5 mg IVP Q6 [facility] Last Admin: 07/09/17 10:00 Dose: 5 mg Pantoprazole Sodium (Protonix Inj) 40 mg IVP Q12 [facility] Last Admin: 07/09/17 08:42 Dose: 40 mg Sodium Bicarbonate (Sodium Bicarbonate Tab) 1,300 mg PO Q8 [facility] Last Admin: 07/02/17 16:23 Dose: 1,300 mg Thiamine HCl (Vitamin B1 Tab) 100 mg PO BID [facility] Last Admin: 07/09/17 08:41 Dose: 100 mg - Labs Labs: 07/09/17 04:40 07/09/17 04:40 PT 13.4 Seconds (9.8-13.1) H 07/08/17 12:50 INR 1.2 (0.9-1.2) 07/08/17 12:50 APTT 30.8 Seconds (25.6-37.1) 07/08/17 12:50 - Constitutional Appears: Non-toxic, Cachectic, Chronically Ill - Head Exam Head Exam: NORMOCEPHALIC - Eye Exam Eye Exam: PERRL. absent: Scleral icterus - ENT Exam ENT Exam: Mucous Membranes Dry - Neck Exam Neck Exam: absent: Lymphadenopathy - Respiratory Exam Respiratory Exam: Decreased Breath Sounds, Rales, Rhonchi - Cardiovascular Exam Cardiovascular Exam: REGULAR RHYTHM, +S1, +S2 - GI/Abdominal Exam GI & Abdominal Exam: Distended, Soft. absent: Tenderness - Rectal Exam Rectal Exam: Deferred - Exam Exam: NORMAL INSPECTION - Extremities Exam Extremities Exam: absent: Calf Tenderness, Pedal Edema, Tenderness - Back Exam Back Exam: absent: CVA tenderness (L), CVA tenderness (R) - Neurological Exam Neurological Exam: Altered - Skin Skin Exam: Dry Assessment and Plan (1) Acute renal failure Status: Acute (2) Altered mental status Status: Acute (3) CHF (congestive heart failure) Status: Acute (4) DM2 (diabetes mellitus, type 2) Status: Acute (5) HCAP (healthcare-associated pneumonia) Status: Acute (6) Pleural effusion Status: Acute (7) SIRS (systemic inflammatory response syndrome) Status: Acute (8) Sepsis Status: Acute (9) Acute kidney injury superimposed on chronic kidney disease Status: Acute (10) Alcohol abuse Status: Acute (11) Anasarca Status: Acute (12) Anemia of renal disease Status: Acute (13) Bilateral lower extremity edema Status: Acute - Assessment and Plan (Free Text) Assessment: 66 yo male admitted with sepsis/ septic shock/ resp failure all cultures neg thus far awaiting AFB smears/ cultures LINDA could not be done Procalcitonin level sent some improvement in renal function noted cont IV antibiotics for now d/c isolation when/ if 3 negative smears obbtained
--- NOTE | 2017-07-09 20:35 | CP.PCM.PN ---
Subjective - Date & Time of Evaluation Date of Evaluation: 07/09/17 Time of Evaluation: 20:00 - Subjective Subjective: Patient alert, following commands; still intubated; Objective - Vital Signs/Intake and Output Vital Signs (last 24 hours): Temp Pulse Resp BP Pulse Ox 98.9 F 82 15 152/82 H 99 07/09/17 16:00 07/09/17 20:00 07/09/17 20:00 07/09/17 20:00 07/09/17 20:00 Intake and Output: 07/09/17 07/10/17 18:59 06:59 Intake Total 1240 Output Total 1510 Balance -270 - Medications Medications: Current Medications Albumin Human (Albumin Human 25% (12.5 Gm/50 Ml)) 12.5 gm IV Q6H [facility] Stop: 07/10/17 02:46 Albuterol/Ipratropium (Duoneb 3 Mg/0.5 Mg (3 Ml) Ud) 3 ml INH RQID [facility] Last Admin: 07/09/17 19:16 Dose: 3 ml Amlodipine Besylate (Norvasc) 10 mg PO DAILY [facility] Last Admin: 07/09/17 08:43 Dose: 10 mg Bacitracin (Bacitracin Oint) 1 applic TOP TID [facility] Last Admin: 07/09/17 16:42 Dose: 1 applic Calcium Acetate (Phoslo) 2,001 mg PO 0830,1200,1830 [facility] Last Admin: 07/09/17 12:00 Dose: 2,001 mg Dextrose (Dextrose 50% Inj) 0 ml IV STAT PRN; Protocol PRN Reason: Hypoglycemia Protocol Dextrose (Glutose 15) 0 gm PO ONCE PRN; Protocol PRN Reason: Hypoglycemia Protocol Enoxaparin Sodium (Lovenox) 30 mg SC DAILY [facility] PRN Reason: Protocol Last Admin: 07/09/17 08:45 Dose: 30 mg Epoetin Roel (Procrit) 14,000 unit SC MWF [facility] Last Admin: 07/09/17 11:40 Dose: 14,000 unit Glipizide (Glucotrol) 2.5 mg PO BIDAC [facility] Last Admin: 07/09/17 16:43 Dose: 2.5 mg Glucagon (Glucagen Diagnostic Kit) 0 mg IM STAT PRN; Protocol PRN Reason: Hypoglycemia Protocol Hydralazine HCl (Apresoline) 25 mg PO Q8 [facility] Last Admin: 07/09/17 16:42 Dose: 25 mg Hydromorphone HCl (Dilaudid) 0.5 mg IVP Q4H PRN PRN Reason: Pain, moderate (4-7) Stop: 07/10/17 18:54 Hydromorphone HCl (Dilaudid) 0.5 mg IVP Q8 [facility] Linezolid (Zyvox 600mg/300ml D5w) 600 mg in 300 mls @ 300 mls/hr IVPB Q12 [facility] PRN Reason: Protocol Last Admin: 07/09/17 20:00 Dose: 300 mls/hr Cefepime HCl 1 gm/ Sodium (Chloride) 100 mls @ 100 mls/hr IVPB DAILY [facility] PRN Reason: Protocol Last Admin: 07/09/17 08:46 Dose: 100 mls/hr Micafungin Sodium 100 mg/ (Sodium Chloride) 100 mls @ 100 mls/hr IVPB DAILY [facility] PRN Reason: Protocol Last Admin: 07/09/17 08:43 Dose: 100 mls/hr Levetiracetam 500 mg/ Sodium (Chloride) 105 mls @ 210 mls/hr IVPB Q12 [facility] Last Admin: 07/09/17 20:01 Dose: 210 mls/hr Insulin Human Lispro (Humalog) 0 units SC ACHS [facility] PRN Reason: Protocol Last Admin: 07/09/17 16:51 Dose: Not Given Levothyroxine Sodium (Synthroid) 50 mcg PO DAILY@0630 [facility] Last Admin: 07/09/17 06:51 Dose: 50 mcg Metoprolol Tartrate (Lopressor) 5 mg IVP Q6 [facility] Last Admin: 07/09/17 16:44 Dose: 5 mg Pantoprazole Sodium (Protonix Inj) 40 mg IVP Q12 [facility] Last Admin: 07/09/17 08:42 Dose: 40 mg Sodium Bicarbonate (Sodium Bicarbonate Tab) 1,300 mg PO Q8 [facility] Last Admin: 07/02/17 16:23 Dose: 1,300 mg Thiamine HCl (Vitamin B1 Tab) 100 mg PO BID [facility] Last Admin: 07/09/17 16:52 Dose: 100 mg - Labs Labs: 07/09/17 04:40 07/09/17 04:40 PT 13.4 Seconds (9.8-13.1) H 07/08/17 12:50 INR 1.2 (0.9-1.2) 07/08/17 12:50 APTT 30.8 Seconds (25.6-37.1) 07/08/17 12:50 - Constitutional Appears: Chronically Ill - Eye Exam Eye Exam: absent: Scleral icterus - ENT Exam ENT Exam: Mucous Membranes Moist - Respiratory Exam Respiratory Exam: Clear to Ausculation Bilateral. absent: Respiratory Distress - Cardiovascular Exam Cardiovascular Exam: RRR, +S1, +S2 - GI/Abdominal Exam GI & Abdominal Exam: Soft. absent: Distended - Extremities Exam Additional comments: markedly edematous arms and dependent areas; - Neurological Exam Neurological Exam: Alert, Awake Additional comments: following commands; - Psychiatric Exam Psychiatric exam: absent: Agitated - Skin Skin Exam: Warm. absent: Cyanosis Assessment and Plan (1) Acute renal failure Assessment & Plan: CHINTAN on CKD; renal function continues to improve slowly; continue to keep volume replete; giving IV albumin 50 g; Status: Acute (2) Pleural effusion Status: Chronic (3) Nephrotic syndrome Assessment & Plan: With marked hypoalbuminemia; goal is to start KEVIN blockade once renal function stabilizes; Status: Chronic (4) Chronic kidney disease, stage 3 (moderate) Status: Chronic (5) Hypertensive CKD (chronic kidney disease) Assessment & Plan: BP elevated; continue current meds for now (amlodipine 10, hydralazine 25 q8h and metoprolol); will start with lisinopril 10 mg once creat stable; Status: Acute (6) Hypothermia Status: Acute (7) Altered mental status Status: Acute (8) SIRS (systemic inflammatory response syndrome) Status: Acute (9) Anemia Assessment & Plan: s/p 2 u prbc transfusion; will continue EPO 14,000 u qMWF (dose just increased last week); Status: Chronic (10) Monoclonal gammopathy Status: Chronic
[2017-07-09] MEDS ORDERED: Albumin Human 25% (12.5 gm/50 ml) IV SCH (20:45)
[2017-07-10] MEDS: HYDROmorphone 0.5 mg/0.5 ml ISec IVP SCH ×3 (00:54→16:34)
[2017-07-10] MEDS ORDERED: Albumin Human 25% (12.5 gm/50 ml) IV SCH (04:00)
[2017-07-10] MEDS: Metoprolol 1 mg/ml Inj IVP SCH ×4 (04:53→22:02)
[2017-07-10 04:57] LABS: ABG ALLEN TEST YES; ARTERIAL BLOOD GAS HCO3 25.6 mmol/L (21-28); ARTERIAL BLOOD GAS HEMOGLOBIN 7.5 g/dL (11.7-17.4); ARTERIAL BLOOD GAS O2 CAPACITY 10.5 mL/dL (16-24); ARTERIAL BLOOD GAS O2 CONTENT 10.6 ML/dL (15-23); ARTERIAL BLOOD GAS O2 SAT 100.8 % (95-98); ARTERIAL BLOOD GAS PCO2 39 mm/Hg (35-45); ARTERIAL BLOOD GAS PH 7.42 (7.35-7.45); ARTERIAL BLOOD GAS PO2 106 mm/Hg (80-100); ARTERIAL BLOOD GAS TCO2 26.5 mmol/L (22-28)
[2017-07-10] MEDS: Levothyroxine 50 MCG TAB PO SCH (05:41)
[2017-07-10 05:56] LABS: BASO # 0.1 K/uL (0.0-0.2); EOS # 0.3 K/uL (0.0-0.7); EOS % 6.5 % (0.0-4.0); HEMOGLOBIN 6.9 g/dL (12.0-18.0); LYMPH # 0.8 K/uL (1.0-4.3); LYMPH % 21.7 % (20.0-40.0); MEAN CELL VOLUME 92.5 fl (80.0-94.0); MEAN CORPUSCULAR HEMOGLOBIN 30.1 pg (27.0-31.0); MEAN CORPUSCULAR HGB CONC 32.6 g/dL (33.0-37.0); MEAN PLATELET VOLUME 11.5 fl (7.2-11.7); MONO # 0.2 K/uL (0.0-0.8); MONO % 6.1 % (0.0-10.0); NEUT # 2.5 K/uL (1.8-7.0); NEUT % 63.7 % (50.0-75.0); NRBC % 0.5 % (0.0-0.0); RBC 2.29 Mil/uL (4.40-5.90); RED CELL DISTRIBUTION WIDTH 15.3 % (11.5-14.5); WHITE BLOOD COUNT 3.9 K/uL (4.8-10.8)
[2017-07-10 06:10] LABS: ALBUMIN 2.3 g/dL (3.5-5.0); ALT/SGPT 36 U/L (21-72); AST/SGOT 15 U/L (17-59); BLOOD UREA NITROGEN 61 mg/dl (9-20); CALCIUM 8.5 mg/dL (8.4-10.2); GFR AFRICAN-AMERICAN 26; GFR NON-AFRICAN AMERICAN 22
[2017-07-10 06:15] LABS: T4 5.47 ug/dl (5.5-11.0)
[2017-07-10] MEDS: Insulin Lispro (humaLOG) 100 Units/ml Inj SC SCH ×4 (06:33→21:57)
--- NOTE | 2017-07-10 07:28 | CP.PCM.PN ---
Subjective - Date & Time of Evaluation Date of Evaluation: 07/10/17 Time of Evaluation: 07:00 - Subjective Subjective: CT surgery progress note for Dr. Hannah Vila, PGY-1 Pt S & E at bedside. Pt intubated, arousable to tactile stimuli. CT with 0cc output over 24H, on waterseal. PRVC RR 12, TV 400, PEEP 5, FiO2 30. Objective - Vital Signs/Intake and Output Vital Signs (last 24 hours): Temp Pulse Resp BP Pulse Ox 98.5 F 72 14 153/63 H 100 07/10/17 04:00 07/10/17 05:42 07/10/17 05:42 07/10/17 05:42 07/10/17 05:42 Intake and Output: 07/10/17 07/10/17 06:59 18:59 Intake Total 1345 Output Total 1001 10 Balance 344 -10 - Medications Medications: Current Medications Albuterol/Ipratropium (Duoneb 3 Mg/0.5 Mg (3 Ml) Ud) 3 ml INH RQID [facility] Last Admin: 07/09/17 19:16 Dose: 3 ml Amlodipine Besylate (Norvasc) 10 mg PO DAILY [facility] Last Admin: 07/09/17 08:43 Dose: 10 mg Bacitracin (Bacitracin Oint) 1 applic TOP TID [facility] Last Admin: 07/09/17 16:42 Dose: 1 applic Calcium Acetate (Phoslo) 2,001 mg PO 0830,1200,1830 [facility] Last Admin: 07/09/17 12:00 Dose: 2,001 mg Dextrose (Dextrose 50% Inj) 0 ml IV STAT PRN; Protocol PRN Reason: Hypoglycemia Protocol Dextrose (Glutose 15) 0 gm PO ONCE PRN; Protocol PRN Reason: Hypoglycemia Protocol Enoxaparin Sodium (Lovenox) 30 mg SC DAILY [facility] PRN Reason: Protocol Last Admin: 07/09/17 08:45 Dose: 30 mg Epoetin Roel (Procrit) 14,000 unit SC MWF [facility] Last Admin: 07/09/17 11:40 Dose: 14,000 unit Glipizide (Glucotrol) 2.5 mg PO BIDAC [facility] Last Admin: 07/09/17 16:43 Dose: 2.5 mg Glucagon (Glucagen Diagnostic Kit) 0 mg IM STAT PRN; Protocol PRN Reason: Hypoglycemia Protocol Hydralazine HCl (Apresoline) 25 mg PO Q8 [facility] Last Admin: 07/10/17 00:35 Dose: 25 mg Hydromorphone HCl (Dilaudid) 0.5 mg IVP Q4H PRN PRN Reason: Pain, moderate (4-7) Stop: 07/10/17 18:54 Hydromorphone HCl (Dilaudid) 0.5 mg IVP Q8 [facility] Last Admin: 07/10/17 00:54 Dose: 0.5 mg Linezolid (Zyvox 600mg/300ml D5w) 600 mg in 300 mls @ 300 mls/hr IVPB Q12 [facility] PRN Reason: Protocol Last Admin: 07/09/17 20:00 Dose: 300 mls/hr Cefepime HCl 1 gm/ Sodium (Chloride) 100 mls @ 100 mls/hr IVPB DAILY [facility] PRN Reason: Protocol Last Admin: 07/09/17 08:46 Dose: 100 mls/hr Micafungin Sodium 100 mg/ (Sodium Chloride) 100 mls @ 100 mls/hr IVPB DAILY [facility] PRN Reason: Protocol Last Admin: 07/09/17 08:43 Dose: 100 mls/hr Levetiracetam 500 mg/ Sodium (Chloride) 105 mls @ 210 mls/hr IVPB Q12 [facility] Last Admin: 07/09/17 20:01 Dose: 210 mls/hr Potassium Chloride (Potassium Cl 10meq/50ml Sterile Water) 50 mls @ 50 mls/hr IVPB Q1 [facility] Stop: 07/10/17 09:59 Insulin Human Lispro (Humalog) 0 units SC ACHS [facility] PRN Reason: Protocol Last Admin: 07/10/17 06:33 Dose: Not Given Levothyroxine Sodium (Synthroid) 50 mcg PO DAILY@0630 [facility] Last Admin: 07/10/17 05:41 Dose: 50 mcg Metoprolol Tartrate (Lopressor) 5 mg IVP Q6 [facility] Last Admin: 07/10/17 04:53 Dose: 5 mg Pantoprazole Sodium (Protonix Inj) 40 mg IVP Q12 [facility] Last Admin: 07/09/17 22:00 Dose: 40 mg Sodium Bicarbonate (Sodium Bicarbonate Tab) 1,300 mg PO Q8 [facility] Last Admin: 07/02/17 16:23 Dose: 1,300 mg Thiamine HCl (Vitamin B1 Tab) 100 mg PO BID [facility] Last Admin: 07/09/17 16:52 Dose: 100 mg - Labs Labs: 07/10/17 04:20 07/10/17 04:20 PT 13.4 Seconds (9.8-13.1) H 07/08/17 12:50 INR 1.2 (0.9-1.2) 07/08/17 12:50 APTT 30.8 Seconds (25.6-37.1) 07/08/17 12:50 - Constitutional Appears: Non-toxic, No Acute Distress - Head Exam Head Exam: ATRAUMATIC, NORMAL INSPECTION, NORMOCEPHALIC - Eye Exam Eye Exam: EOMI, Normal appearance - ENT Exam ENT Exam: Mucous Membranes Dry (ET in place) - Neck Exam Neck Exam: Normal Inspection - Respiratory Exam Respiratory Exam: NORMAL BREATHING PATTERN (on mechanical vent) Additional comments: Left subclavian in place L chest tube in place, dressing C/D/I - Cardiovascular Exam Cardiovascular Exam: REGULAR RHYTHM, +S1, +S2 - GI/Abdominal Exam GI & Abdominal Exam: Soft. absent: Distended, Firm, Guarding, Rigid, Tenderness - Extremities Exam Extremities Exam: Normal Inspection - Neurological Exam Neurological Exam: Awake. absent: Oriented x3 Additional comments: non verbal, intubated - Psychiatric Exam Psychiatric exam: absent: Normal Affect, Normal Mood - Skin Skin Exam: Dry, Intact, Normal Color, Warm Assessment and Plan - Assessment and Plan (Free Text) Assessment: 66M w/recurrent left pleural effusion s/p CT placement POD#2, now with Right side pleural effusion Plan: Daily CXR CT to water seal Monitor output Dressing changes PRN FU pleural fluid studies Will place Right sided CT as requested by ICU DW attending Cadence, PGY-1 Chest Tube Insertion - Chest Tube Placement Indication: Other (pleural effusion on right) Consent Obtained: Written Procedural Sedation: None Procedure Description: Prepped W/Betadine, Sterile Drape Applied, Local Anes Used: (lidocaine 2% with epi) Incision Completed And Tube Inserted At: Right mid axillary line between ribs 4 and 5 Post Insertion Procedure(s): Tube Sutured To Chest Wall, CXR Completed To Confirm Placement, Tube Connected To Suction, No Air Leak Noted
[2017-07-10] MEDS: Albuterol-Ipratrop 3 mg / 0.5 (3 ml) UD INH SCH ×4 (07:54→19:13)
[2017-07-10] MEDS ORDERED: Potassium CL 10 MEQ/50 ML 50 ML IVPB SCH (08:00)
[2017-07-10] MEDS ORDERED: Lidocaine 2% w Epi 1:100,000 Inj IJ ONE (08:30)
[2017-07-10] MEDS: Bacitracin OINT 15GM TOP SCH ×2 (09:21→12:10)
[2017-07-10] MEDS: levETIRAcetam 500 MG in Sodium Chloride 0.9% 100 ML IVPB SCH ×2 (09:24→22:01)
[2017-07-10] MEDS: Enoxaparin 30 mg Syringe SC SCH (09:25)
[2017-07-10] MEDS: Cefepime 1 GM in Sodium Chloride 0.9% 100 ML IVPB SCH (09:31)
[2017-07-10] MEDS: Linezolid 600 mg in D5W 300 ml 600 MG/300 ML BAG IVPB SCH ×2 (09:38→22:03)
--- NOTE | 2017-07-10 09:41 | CP.PCM.PCO ---
Physician Communication Note - Physician Communication Note Physician Communication Note: Specimens from 07/10/17 are RIGHT SIDE PLEURAL FLUID
--- NOTE | 2017-07-10 10:00 | RAD ---
PROCEDURE: CHEST RADIOGRAPH, 1 VIEW HISTORY: intubated, chest tube COMPARISON: Chest radiograph dated 07/09/2017. FINDINGS: LUNGS: Pulmonary vascular congestion, stable. PLEURA: Small bilateral pleural effusions, stable. CARDIOVASCULAR: Atherosclerotic aortic calcifications. Cardiomediastinal silhouette stably prominent. OSSEOUS STRUCTURES: Unchanged. VISUALIZED UPPER ABDOMEN: Normal. OTHER FINDINGS: Endotracheal, enteric, left chest tubes, unchanged. Left subclavian access venous catheter, unchanged IMPRESSION: No significant interval change.
--- NOTE | 2017-07-10 10:17 | CP.PCM.PN ---
Subjective - Date & Time of Evaluation Date of Evaluation: 07/10/17 Time of Evaluation: 07:10 - Subjective Subjective: Patient seen and examined bedside in ICU, intubated day #7. Patient awake, alert , obey commands, moving hands and feet. he shakes his head and denies pain. B/L chest tubes. R chest tube placed today draining hematic fluid 50 ml. [place] with clear urine 50 ml. noticed one loose stool dark brown BM in the morning c diff ordered Objective - Vital Signs/Intake and Output Vital Signs (last 24 hours): Temp Pulse Resp BP Pulse Ox 98.8 F 80 20 148/55 L 100 07/10/17 08:00 07/10/17 09:33 07/10/17 08:00 07/10/17 09:33 07/10/17 08:00 Intake and Output: 07/10/17 07/10/17 06:59 18:59 Intake Total 1345 750 Output Total 1001 10 Balance 344 740 - Medications Medications: Current Medications Albuterol/Ipratropium (Duoneb 3 Mg/0.5 Mg (3 Ml) Ud) 3 ml INH RQID [facility] Last Admin: 07/10/17 07:54 Dose: 3 ml Amlodipine Besylate (Norvasc) 10 mg PO DAILY [facility] Last Admin: 07/10/17 09:33 Dose: 10 mg Bacitracin (Bacitracin Oint) 1 applic TOP TID [facility] Last Admin: 07/10/17 09:21 Dose: 1 applic Calcium Acetate (Phoslo) 2,001 mg PO 0830,1200,1830 [facility] Last Admin: 07/10/17 09:34 Dose: 2,001 mg Dextrose (Dextrose 50% Inj) 0 ml IV STAT PRN; Protocol PRN Reason: Hypoglycemia Protocol Dextrose (Glutose 15) 0 gm PO ONCE PRN; Protocol PRN Reason: Hypoglycemia Protocol Enoxaparin Sodium (Lovenox) 30 mg SC DAILY [facility] PRN Reason: Protocol Last Admin: 07/10/17 09:25 Dose: 30 mg Epoetin Roel (Procrit) 14,000 unit SC MWF [facility] Last Admin: 07/09/17 11:40 Dose: 14,000 unit Glipizide (Glucotrol) 2.5 mg PO BIDAC [facility] Last Admin: 07/10/17 09:23 Dose: 2.5 mg Glucagon (Glucagen Diagnostic Kit) 0 mg IM STAT PRN; Protocol PRN Reason: Hypoglycemia Protocol Hydralazine HCl (Apresoline) 25 mg PO Q8 [facility] Last Admin: 07/10/17 09:20 Dose: 25 mg Hydromorphone HCl (Dilaudid) 0.5 mg IVP Q4H PRN PRN Reason: Pain, moderate (4-7) Stop: 07/10/17 18:54 Hydromorphone HCl (Dilaudid) 0.5 mg IVP Q8 [facility] Last Admin: 07/10/17 09:22 Dose: 0.5 mg Linezolid (Zyvox 600mg/300ml D5w) 600 mg in 300 mls @ 300 mls/hr IVPB Q12 [facility] PRN Reason: Protocol Last Admin: 07/10/17 09:38 Dose: 300 mls/hr Cefepime HCl 1 gm/ Sodium (Chloride) 100 mls @ 100 mls/hr IVPB DAILY [facility] PRN Reason: Protocol Last Admin: 07/10/17 09:31 Dose: 100 mls/hr Micafungin Sodium 100 mg/ (Sodium Chloride) 100 mls @ 100 mls/hr IVPB DAILY [facility] PRN Reason: Protocol Last Admin: 07/09/17 08:43 Dose: 100 mls/hr Levetiracetam 500 mg/ Sodium (Chloride) 105 mls @ 210 mls/hr IVPB Q12 [facility] Last Admin: 07/10/17 09:24 Dose: 210 mls/hr Insulin Human Lispro (Humalog) 0 units SC ACHS [facility] PRN Reason: Protocol Last Admin: 07/10/17 06:33 Dose: Not Given Levothyroxine Sodium (Synthroid) 50 mcg PO DAILY@0630 [facility] Last Admin: 07/10/17 05:41 Dose: 50 mcg Metoprolol Tartrate (Lopressor) 5 mg IVP Q6 [facility] Last Admin: 07/10/17 09:24 Dose: 5 mg Pantoprazole Sodium (Protonix Inj) 40 mg IVP Q12 [facility] Last Admin: 07/10/17 09:35 Dose: 40 mg Sodium Bicarbonate (Sodium Bicarbonate Tab) 1,300 mg PO Q8 [facility] Last Admin: 07/02/17 16:23 Dose: 1,300 mg Thiamine HCl (Vitamin B1 Tab) 100 mg PO BID [facility] Last Admin: 07/10/17 09:36 Dose: 100 mg - Labs Labs: 07/10/17 04:20 07/10/17 04:20 PT 13.4 Seconds (9.8-13.1) H 07/08/17 12:50 INR 1.2 (0.9-1.2) 07/08/17 12:50 APTT 30.8 Seconds (25.6-37.1) 07/08/17 12:50 - Constitutional Appears: In Acute Distress - Head Exam Head Exam: ATRAUMATIC, NORMOCEPHALIC - Eye Exam Eye Exam: Normal appearance - ENT Exam ENT Exam: Mucous Membranes Moist - Neck Exam Neck Exam: Normal Inspection - Respiratory Exam Respiratory Exam: Decreased Breath Sounds, Rhonchi Additional comments: b/l bibasal. B/L chest tubes. left triple lumen subclavian catheter. - Cardiovascular Exam Cardiovascular Exam: REGULAR RHYTHM, +S1, +S2 - GI/Abdominal Exam GI & Abdominal Exam: Soft, Normal Bowel Sounds. absent: Tenderness - Extremities Exam Extremities Exam: Normal Inspection. absent: Pedal Edema Additional comments: b/l hand and forearm swelling, edema 2+ - Back Exam Back Exam: NORMAL INSPECTION - Neurological Exam Neurological Exam: Alert, Awake Additional comments: on ventilator, alert, awake, moves hand and feet, but muscle strength diminished 4 ext. - Skin Additional comments: left hand abrasion with scab formation mild erythema sacral ulcer resolved. 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 Patient is DNR status. Assessment/Plan 1) Acute Respiratory Failure -improving -on ventilator day #7 .CPAP trial -sputum fungus cx: preliminary neg. on mycamine day #9 2) Recurrent Left Pleural effusion, Transudate -Pulmonology consult appreciated: no benefit for bronchoscopy or lung biopsy -IR consult appreciated -Cardiothoracic surgery consult appreciated - s/p Chest tube placement POD#2 left side -s/p chest tube placement today right side 50 ml serosanguineous fluid -quantiferon gold:indeterminated high 3) HAP -improved -c/w cefepime day # 15, linezolid day # 16 -Procalcitonin 14.4 trending down 0.7 4) DM nephropathy -Kidney biopsy 06/05/17: Diabetic nephropathy, nodular glomerulosclerosis, associated with aprox 40 % globally sclerosed glomeruli( calss III), 10-15 % segmentally sclerosed glomeruli, docal moderate interstitial fibrosis and mod vascular sclerosis, including marked hyaline arteriolosclerosis.NO EVIDENCE OF MONOCLONAL LIGHT OR HEAVY CHAIN-RELATED RENAL DISEASE. -Nephro consult appreciated: c/w albumin, dilaudid for pain, no morphine, no NSAID -Renal duplex: no renal vein thrombosis 5) CHINTAN on CKD stage 4 w/ new onset of ATN - Nephorologist consult appreciated -s/p lasix yesterday 6) Thrombocytopenia -HemOnc consult appreciated -trending up [id number] 7) Hypothyroidism, subclinical -Econdrinologist consult appreciated -on levothryroxin 8) Hyperprolactinemia -Prolactin trending down -Endocrionologist consult suggested -MRI brain:no inracraneal hemorrhage, chronic lacunar infarct b/l cerebral, changes in dali haydee represent chronic ischemia or sequela of osmotic myelonilolysis not excluded.chronic b/l basal nuclei lacunar infarcts, mastoid ppasification secondary to intubation 9) Pressure Ulcer and TDI -resolved 10) pEF CHF -Echo 05/31/17 normal EF 60-65% -c/w labetalol, hydralazine 11) DM 2 -SSI 12) HTN - Hydralazine 25 Q8. To keep systolic BP 150 - Labetalol 5m IV PRN 13) Anemia -secondary to CKD -s/p transfucion 1 u pRBC -Hgb 6.9 today. f/u CBC -C/W procrit 14) DVT prophylaxis -Lovenox 30 mg sc (renal dose) 15) GI prophylaxis -Pantoprazol 40 mg IV
[2017-07-10 11:07] LABS: BODY FLUID TYPE PLEURAL
[2017-07-10 12:03] LABS: GLUCOSE,BODY FLUID 145 mg/dL (NONE ESTABLISHED)
[2017-07-10 12:22] LABS: BF GROSS APPEARANCE BLOODY (CLEAR)
[2017-07-10 12:24] LABS: BODY FLUID MONO/MACROPHAGE 5 % (0-0)
--- NOTE | 2017-07-10 12:26 | CP.CCUPN ---
Addendum entered and electronically signed by Lori Magana MD 07/10/17 15: 58: occult blood was negative. Original Note: <Lori Magana - Last Filed: 07/10/17 13:01> CCU Subjective - Physician Review Subjective (Free Text): 66 year old male with PMH of HTN, CKD, nephrotic syndrome, chronic left sided pleural effusion admitted for hypothermia, AMS with acute hypercapnia respiratory failure on 06/22, subsequently developed acute hypoxic respiratory failure, cardiac arrest required intubation on 06/29/17. Patient was extubated on 07/02/17. Patient was intubated on 07/04/17. Today: Patient remains intubated. Following some commands. Somnolent but arousable. Day # 0 : Right sided chest tube, 50 cc of sanguinous output. Day #2 : Left sided chest tube in place. No output overnight. total 840cc. ROS: unable to assess, patient intubated. Vital signs, Labs and Imaging reviewed. WBC: 3.9, HG 6.9, PLT: 76 K+: 3.2 BUN/Cr: 61/2.9 Antibiotics: 06/22/17: Azithro/Rocephin/Vancomycin x 1 dose 06/23/17: Zosyn x 1 dose 06/25/17: Zyvox - 06/25/17- present (Day 16) 06/26/17: Maxipime 06/26/17- present (Day 15) 07/01/17: Mycamine -07/01/17- present (day 10) #. Acute respiratory failure secondary to HCAP and pleural effusions # Pancytopenia #. Hyperprolactinemia, possibly 2' to seizures #. 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 Hypothyroidism #. NIDDM2 #. DVT/GI Prophylaxis Plan: - Antibiotics continued as per ID - FOBT pending. On lovenox/protonix for prophylatic measures. - Continue with Keppra for seizures - Await for renal function to stablize then will start lisinopril - Weaning trial with CPAP today Case discussed with Dr. Mata. Case discussed with primary team. CCU Objective - Vital Signs / Intake & Output Vital Signs (Last 4 hours): Vital Signs Pulse Resp BP Pulse Ox 07/10/17 10:00 70 14 146/56 L 99 07/10/17 09:33 80 148/55 L 07/10/17 09:24 80 148/55 L 07/10/17 09:20 78 163/57 H Intake and Output (Last 8hrs): Intake & Output 07/09/17 07/10/17 07/10/17 22:59 06:59 14:59 Intake Total 1425 610 850 Output Total 1510 1001 10 Balance -85 -391 840 Weight 67.132 kg Intake: Intake, Piggyback 400 50 600 Oral 45 90 100 Tube Feeding 630 270 Blood Product 50 Albumin 50 Free Water Flush 300 150 150 Output: Chest Tube Drainage 10 10 Left Mid-Axillary Chest 10 10 Gastric Amount 1 Stomach 1 Urine 1500 1000 Urethral (Salazar) 1500 1000 Other: # Bowel Movements 3 1 1 - Physical Exam Head: Positive for: Atraumatic, Normocephalic Pupils: Positive for: PERRL Conjunctiva: Positive for: Normal. Negative for: Icteric Mouth: Positive for: Moist Mucous Membranes Nose (External): Positive for: Abrasion (Nasal Abrasion) Respiratory/Chest: Positive for: Good Air Exchange (on mechancal ventilation), Decreased Breath Sounds (left side) Cardiovascular: Positive for: Regular Rate and Rhythm. Negative for: Tachycardic, Bradycardic Abdomen: Negative for: Tenderness, Distention Genitourinary Male: Positive for: Penile Swelling, Testicle Swelling Upper Extremity: Positive for: Edema (bilateral, right > left) Lower Extremity: Negative for: Tenderness Neurological: Positive for: Other (somnolent, arousable, intubated, following commands) Skin: Positive for: Warm, Dry - Medications Active Medications: Active Medications Generic Name Dose Route Start Last Admin Trade Name Freq PRN Reason Stop Dose Admin Albuterol/Ipratropium 3 ml 06/28/17 16:00 07/10/17 11:32 Duoneb 3 Mg/0.5 Mg (3 Ml) Ud INH 3 ml RQID [facility] Administration Amlodipine Besylate 10 mg 07/05/17 09:00 07/10/17 09:33 Norvasc PO 10 mg DAILY [facility] Administration Bacitracin 1 applic 06/27/17 13:00 07/10/17 12:10 Bacitracin Oint TOP 1 applic TID [facility] Administration Calcium Acetate 2,001 mg 07/05/17 08:30 07/10/17 12:13 Phoslo PO 2,001 mg 0830,1200,1830 [facility] Administration Dextrose 0 ml 06/22/17 22:36 Dextrose 50% Inj IV STAT PRN Hypoglycemia Protocol Protocol Dextrose 0 gm 06/22/17 22:36 Glutose 15 PO ONCE PRN Hypoglycemia Protocol Protocol Enoxaparin Sodium 30 mg 07/02/17 09:00 07/10/17 09:25 Lovenox SC 30 mg DAILY [facility] Administration Protocol Epoetin Roel 14,000 unit 07/07/17 09:00 07/09/17 11:40 Procrit SC 14,000 unit MWF [facility] Administration Glipizide 2.5 mg 07/09/17 16:30 07/10/17 09:23 Glucotrol PO 2.5 mg BIDAC [facility] Administration Glucagon 0 mg 06/22/17 22:36 Glucagen Diagnostic Kit IM STAT PRN Hypoglycemia Protocol Protocol Hydralazine HCl 25 mg 07/02/17 01:00 07/10/17 09:20 Apresoline PO 25 mg Q8 [facility] Administration Hydromorphone HCl 0.5 mg 07/08/17 23:36 Dilaudid IVP 07/10/17 18:54 Q4H PRN Pain, moderate (4-7) Hydromorphone HCl 0.5 mg 07/10/17 01:00 07/10/17 09:22 Dilaudid IVP 0.5 mg Q8 [facility] Administration Linezolid 600 mg in 300 mls @ 300 mls/hr 06/25/17 21:00 07/10/17 09:38 Zyvox 600mg/300ml D5w IVPB 300 mls/hr Q12 [facility] Administration Protocol Cefepime HCl 1 gm/ Sodium 100 mls @ 100 mls/hr 06/26/17 09:00 07/10/17 09:31 Chloride IVPB 100 mls/hr DAILY [facility] Administration Protocol Micafungin Sodium 100 mg/ 100 mls @ 100 mls/hr 07/01/17 13:45 07/09/17 08:43 Sodium Chloride IVPB 100 mls/hr DAILY [facility] Administration Protocol Levetiracetam 500 mg/ Sodium 105 mls @ 210 mls/hr 07/04/17 21:00 07/10/17 09: 24 Chloride IVPB 210 mls/hr Q12 [facility] Administration Insulin Human Lispro 0 units 07/07/17 16:30 07/10/17 12:11 Humalog SC Not Given [facility] Protocol Levothyroxine Sodium 50 mcg 07/05/17 06:30 07/10/17 05:41 Synthroid PO 50 mcg DAILY@0630 [facility] Administration Metoprolol Tartrate 5 mg 07/03/17 15:24 07/10/17 09:24 Lopressor IVP 5 mg Q6 [facility] Administration Pantoprazole Sodium 40 mg 07/08/17 21:00 07/10/17 09:35 Protonix Inj IVP 40 mg Q12 [facility] Administration Sodium Bicarbonate 1,300 mg 06/30/17 17:00 07/02/17 16:23 Sodium Bicarbonate Tab PO 1,300 mg Q8 [facility] Administration Thiamine HCl 100 mg 06/24/17 21:30 07/10/17 09:36 Vitamin B1 Tab PO 100 mg BID [facility] Administration - Patient Studies Lab Studies: Microbiology Studies 07/08/17 15:54 Gram Stain - Final Pleural Fluid 07/08/17 06:15 Mycobacterial Culture - Preliminary Other: Please Indicate 07/08/17 09:24 Mycobacterial Culture - Preliminary Other: Please Indicate 07/01/17 10:01 Fungal Culture - Final Sputum Jenny Albicans Lab Studies 07/10/17 07/10/17 07/10/17 Range/Units 11:47 11:04 05:19 WBC (4.8-10.8) K/uL RBC (4.40-5.90) Mil/uL Hgb (12.0-18.0) g/dL Hct (35.0-51.0) % MCV (80.0-94.0) fl MCH (27.0-31.0) pg MCHC (33.0-37.0) g/dL RDW (11.5-14.5) % Plt Count (130-400) K/uL MPV (7.2-11.7) fl Neut % (Auto) (50.0-75.0) % Lymph % (Auto) (20.0-40.0) % [place] % (Auto) (0.0-10.0) % Eos % (Auto) (0.0-4.0) % Baso % (Auto) (0.0-2.0) % Neut # (1.8-7.0) K/uL Lymph # (1.0-4.3) K/uL [place] # (0.0-0.8) K/uL Eos # (0.0-0.7) K/uL Baso # (0.0-0.2) K/uL pCO2 (35-45) mm/Hg pO2 (80-100) mm/Hg HCO3 (21-28) mmol/L ABG pH (7.35-7.45) ABG Total CO2 (22-28) mmol/L ABG O2 Saturation (95-98) % ABG O2 Content (15-23) ML/dL ABG Base Excess (-2.0-3.0) mmol/L ABG Hemoglobin (11.7-17.4) g/dL ABG Carboxyhemoglobin (0.5-1.5) % POC ABG HHb (Measured) (0.0-5.0) % ABG Methemoglobin (0.0-3.0) % ABG O2 Capacity (16-24) mL/dL Andry Test A-a O2 Difference mm/Hg Hgb O2 Saturation (95.0-98.0) % Vent Mode Mechanical Rate FiO2 % Tidal Volume PEEP Sodium (132-148) mmol/l Potassium (3.6-5.0) MMOL/L Chloride (98-107) mmol/L Carbon Dioxide (22-30) mmol/L Anion Gap (10-20) BUN (9-20) mg/dl Creatinine (0.8-1.5) mg/dl Est GFR ( Amer) Est GFR (Non-Af Amer) POC Glucose (mg/dL) 179 H 180 H (65-110) mg/dL Random Glucose (75-110) mg/dL Calcium (8.4-10.2) mg/dL Total Bilirubin (0.2-1.3) mg/dl AST (17-59) U/L ALT (21-72) U/L Alkaline Phosphatase (38-126) U/L Total Protein (6.3-8.2) G/DL Albumin (3.5-5.0) g/dL Globulin (2.2-3.9) gm/dL Albumin/Globulin Ratio (1.0-2.1) Procalcitonin (0.19-0.49) NG/ML Free T4 (0.78-2.19) ng/dL Thyroxine (T4) (5.5-11.0) ug/dl TSH 3rd Generation (0.46-4.68) mIU/ML Fluid Source Pleural Fluid Glucose 145 (NONE ESTABLISHED) mg/dL Stool Occult Blood (NEGATIVE) 07/10/17 07/10/17 07/10/17 Range/Units 04:49 04:20 04:20 WBC (4.8-10.8) K/uL RBC (4.40-5.90) Mil/uL Hgb (12.0-18.0) g/dL Hct (35.0-51.0) % MCV (80.0-94.0) fl MCH (27.0-31.0) pg MCHC (33.0-37.0) g/dL RDW (11.5-14.5) % Plt Count (130-400) K/uL MPV (7.2-11.7) fl Neut % (Auto) (50.0-75.0) % Lymph % (Auto) (20.0-40.0) % [place] % (Auto) (0.0-10.0) % Eos % (Auto) (0.0-4.0) % Baso % (Auto) (0.0-2.0) % Neut # (1.8-7.0) K/uL Lymph # (1.0-4.3) K/uL [place] # (0.0-0.8) K/uL Eos # (0.0-0.7) K/uL Baso # (0.0-0.2) K/uL pCO2 39 (35-45) mm/Hg pO2 106 H (80-100) mm/Hg HCO3 25.6 (21-28) mmol/L ABG pH 7.42 (7.35-7.45) ABG Total CO2 26.5 (22-28) mmol/L ABG O2 Saturation 100.8 H (95-98) % ABG O2 Content 10.6 L (15-23) ML/dL ABG Base Excess 0.8 (-2.0-3.0) mmol/L ABG Hemoglobin 7.5 L (11.7-17.4) g/dL ABG Carboxyhemoglobin 1.7 H (0.5-1.5) % POC ABG HHb (Measured) -0.8 L (0.0-5.0) % ABG Methemoglobin 0.8 (0.0-3.0) % ABG O2 Capacity 10.5 L (16-24) mL/dL Andry Test Yes A-a O2 Difference 59.0 mm/Hg Hgb O2 Saturation 98.3 H (95.0-98.0) % Vent Mode Prvc/ac Mechanical Rate 12 FiO2 30.0 % Tidal Volume 400 PEEP 5 Sodium 143 (132-148) mmol/l Potassium 3.4 L (3.6-5.0) MMOL/L Chloride 108 H (98-107) mmol/L Carbon Dioxide 26 (22-30) mmol/L Anion Gap 12 (10-20) BUN 61 H (9-20) mg/dl Creatinine 2.9 H (0.8-1.5) mg/dl Est GFR ( Amer) 26 Est GFR (Non-Af Amer) 22 POC Glucose (mg/dL) (65-110) mg/dL Random Glucose 161 H (75-110) mg/dL Calcium 8.5 (8.4-10.2) mg/dL Total Bilirubin < 0.1 L (0.2-1.3) mg/dl AST 15 L (17-59) U/L ALT 36 (21-72) U/L Alkaline Phosphatase 122 (38-126) U/L Total Protein 4.8 L (6.3-8.2) G/DL Albumin 2.3 L (3.5-5.0) g/dL Globulin 2.4 (2.2-3.9) gm/dL Albumin/Globulin Ratio 1.0 (1.0-2.1) Procalcitonin (0.19-0.49) NG/ML Free T4 0.97 (0.78-2.19) ng/dL Thyroxine (T4) 5.47 L (5.5-11.0) ug/dl TSH 3rd Generation 3.71 (0.46-4.68) mIU/ML Fluid Source Fluid Glucose (NONE ESTABLISHED) mg/dL Stool Occult Blood (NEGATIVE) 07/10/17 07/09/17 07/09/17 Range/Units 04:20 21:41 16:47 WBC 3.9 L (4.8-10.8) K/uL RBC 2.29 L (4.40-5.90) Mil/uL Hgb 6.9 L (12.0-18.0) g/dL Hct 21.1 L (35.0-51.0) % MCV 92.5 (80.0-94.0) fl MCH 30.1 (27.0-31.0) pg MCHC 32.6 L (33.0-37.0) g/dL RDW 15.3 H (11.5-14.5) % Plt Count 76 L (130-400) K/uL MPV 11.5 (7.2-11.7) fl Neut % (Auto) 63.7 (50.0-75.0) % Lymph % (Auto) 21.7 (20.0-40.0) % [place] % (Auto) 6.1 (0.0-10.0) % Eos % (Auto) 6.5 H (0.0-4.0) % Baso % (Auto) 2.0 (0.0-2.0) % Neut # 2.5 (1.8-7.0) K/uL Lymph # 0.8 L (1.0-4.3) K/uL [place] # 0.2 (0.0-0.8) K/uL Eos # 0.3 (0.0-0.7) K/uL Baso # 0.1 (0.0-0.2) K/uL pCO2 (35-45) mm/Hg pO2 (80-100) mm/Hg HCO3 (21-28) mmol/L ABG pH (7.35-7.45) ABG Total CO2 (22-28) mmol/L ABG O2 Saturation (95-98) % ABG O2 Content (15-23) ML/dL ABG Base Excess (-2.0-3.0) mmol/L ABG Hemoglobin (11.7-17.4) g/dL ABG Carboxyhemoglobin (0.5-1.5) % POC ABG HHb (Measured) (0.0-5.0) % ABG Methemoglobin (0.0-3.0) % ABG O2 Capacity (16-24) mL/dL Andry Test A-a O2 Difference mm/Hg Hgb O2 Saturation (95.0-98.0) % Vent Mode Mechanical Rate FiO2 % Tidal Volume PEEP Sodium (132-148) mmol/l Potassium (3.6-5.0) MMOL/L Chloride (98-107) mmol/L Carbon Dioxide (22-30) mmol/L Anion Gap (10-20) BUN (9-20) mg/dl Creatinine (0.8-1.5) mg/dl Est GFR ( Amer) Est GFR (Non-Af Amer) POC Glucose (mg/dL) 182 H 125 H (65-110) mg/dL Random Glucose (75-110) mg/dL Calcium (8.4-10.2) mg/dL Total Bilirubin (0.2-1.3) mg/dl AST (17-59) U/L ALT (21-72) U/L Alkaline Phosphatase (38-126) U/L Total Protein (6.3-8.2) G/DL Albumin (3.5-5.0) g/dL Globulin (2.2-3.9) gm/dL Albumin/Globulin Ratio (1.0-2.1) Procalcitonin (0.19-0.49) NG/ML Free T4 (0.78-2.19) ng/dL Thyroxine (T4) (5.5-11.0) ug/dl TSH 3rd Generation (0.46-4.68) mIU/ML Fluid Source Fluid Glucose (NONE ESTABLISHED) mg/dL Stool Occult Blood (NEGATIVE) 07/09/17 07/08/17 Range/Units 15:08 12:30 WBC (4.8-10.8) K/uL RBC (4.40-5.90) Mil/uL Hgb (12.0-18.0) g/dL Hct (35.0-51.0) % MCV (80.0-94.0) fl MCH (27.0-31.0) pg MCHC (33.0-37.0) g/dL RDW (11.5-14.5) % Plt Count (130-400) K/uL MPV (7.2-11.7) fl Neut % (Auto) (50.0-75.0) % Lymph % (Auto) (20.0-40.0) % [place] % (Auto) (0.0-10.0) % Eos % (Auto) (0.0-4.0) % Baso % (Auto) (0.0-2.0) % Neut # (1.8-7.0) K/uL Lymph # (1.0-4.3) K/uL [place] # (0.0-0.8) K/uL Eos # (0.0-0.7) K/uL Baso # (0.0-0.2) K/uL pCO2 (35-45) mm/Hg pO2 (80-100) mm/Hg HCO3 (21-28) mmol/L ABG pH (7.35-7.45) ABG Total CO2 (22-28) mmol/L ABG O2 Saturation (95-98) % ABG O2 Content (15-23) ML/dL ABG Base Excess (-2.0-3.0) mmol/L ABG Hemoglobin (11.7-17.4) g/dL ABG Carboxyhemoglobin (0.5-1.5) % POC ABG HHb (Measured) (0.0-5.0) % ABG Methemoglobin (0.0-3.0) % ABG O2 Capacity (16-24) mL/dL Andry Test A-a O2 Difference mm/Hg Hgb O2 Saturation (95.0-98.0) % Vent Mode Mechanical Rate FiO2 % Tidal Volume PEEP Sodium (132-148) mmol/l Potassium (3.6-5.0) MMOL/L Chloride (98-107) mmol/L Carbon Dioxide (22-30) mmol/L Anion Gap (10-20) BUN (9-20) mg/dl Creatinine (0.8-1.5) mg/dl Est GFR ( Amer) Est GFR (Non-Af Amer) POC Glucose (mg/dL) (65-110) mg/dL Random Glucose (75-110) mg/dL Calcium (8.4-10.2) mg/dL Total Bilirubin (0.2-1.3) mg/dl AST (17-59) U/L ALT (21-72) U/L Alkaline Phosphatase (38-126) U/L Total Protein (6.3-8.2) G/DL Albumin (3.5-5.0) g/dL Globulin (2.2-3.9) gm/dL Albumin/Globulin Ratio (1.0-2.1) Procalcitonin 0.71 H (0.19-0.49) NG/ML Free T4 (0.78-2.19) ng/dL Thyroxine (T4) (5.5-11.0) ug/dl TSH 3rd Generation (0.46-4.68) mIU/ML Fluid Source Fluid Glucose (NONE ESTABLISHED) mg/dL Stool Occult Blood Negative (NEGATIVE) Laboratory Results - last 24 hr 07/08/17 07/09/17 07/09/17 12:30 15:08 16:47 WBC RBC Hgb Hct MCV MCH MCHC RDW Plt Count MPV Neut % (Auto) Lymph % (Auto) [place] % (Auto) Eos % (Auto) Baso % (Auto) Neut # Lymph # [place] # Eos # Baso # pCO2 pO2 HCO3 ABG pH ABG Total CO2 ABG O2 Saturation ABG O2 Content ABG Base Excess ABG Hemoglobin ABG Carboxyhemoglobin POC ABG HHb (Measured) ABG Methemoglobin ABG O2 Capacity Andry Test A-a O2 Difference Hgb O2 Saturation Vent Mode Mechanical Rate FiO2 Tidal Volume PEEP Sodium Potassium Chloride Carbon Dioxide Anion Gap BUN Creatinine Est GFR ( Amer) Est GFR (Non-Af Amer) POC Glucose (mg/dL) 125 H Random Glucose Calcium Total Bilirubin AST ALT Alkaline Phosphatase Total Protein Albumin Globulin Albumin/Globulin Ratio Procalcitonin 0.71 H Free T4 Thyroxine (T4) TSH 3rd Generation Fluid Source Fluid Glucose Stool Occult Blood Negative 07/09/17 07/10/17 07/10/17 21:41 04:20 04:20 WBC 3.9 L RBC 2.29 L Hgb 6.9 L Hct 21.1 L MCV 92.5 MCH 30.1 MCHC 32.6 L RDW 15.3 H Plt Count 76 L MPV 11.5 Neut % (Auto) 63.7 Lymph % (Auto) 21.7 [place] % (Auto) 6.1 Eos % (Auto) 6.5 H Baso % (Auto) 2.0 Neut # 2.5 Lymph # 0.8 L [place] # 0.2 Eos # 0.3 Baso # 0.1 pCO2 pO2 HCO3 ABG pH ABG Total CO2 ABG O2 Saturation ABG O2 Content ABG Base Excess ABG Hemoglobin ABG Carboxyhemoglobin POC ABG HHb (Measured) ABG Methemoglobin ABG O2 Capacity Andry Test A-a O2 Difference Hgb O2 Saturation Vent Mode Mechanical Rate FiO2 Tidal Volume PEEP Sodium 143 Potassium 3.4 L Chloride 108 H Carbon Dioxide 26 Anion Gap 12 BUN 61 H Creatinine 2.9 H Est GFR ( Amer) 26 Est GFR (Non-Af Amer) 22 POC Glucose (mg/dL) 182 H Random Glucose 161 H Calcium 8.5 Total Bilirubin < 0.1 L AST 15 L ALT 36 Alkaline Phosphatase 122 Total Protein 4.8 L Albumin 2.3 L Globulin 2.4 Albumin/Globulin Ratio 1.0 Procalcitonin Free T4 Thyroxine (T4) 5.47 L TSH 3rd Generation 3.71 Fluid Source Fluid Glucose Stool Occult Blood 07/10/17 07/10/17 07/10/17 04:20 04:49 05:19 WBC RBC Hgb Hct MCV MCH MCHC RDW Plt Count MPV Neut % (Auto) Lymph % (Auto) [place] % (Auto) Eos % (Auto) Baso % (Auto) Neut # Lymph # [place] # Eos # Baso # pCO2 39 pO2 106 H HCO3 25.6 ABG pH 7.42 ABG Total CO2 26.5 ABG O2 Saturation 100.8 H ABG O2 Content 10.6 L ABG Base Excess 0.8 ABG Hemoglobin 7.5 L ABG Carboxyhemoglobin 1.7 H POC ABG HHb (Measured) -0.8 L ABG Methemoglobin 0.8 ABG O2 Capacity 10.5 L Andry Test Yes A-a O2 Difference 59.0 Hgb O2 Saturation 98.3 H Vent Mode Prvc/ac Mechanical Rate 12 FiO2 30.0 Tidal Volume 400 PEEP 5 Sodium Potassium Chloride Carbon Dioxide Anion Gap BUN Creatinine Est GFR ( Amer) Est GFR (Non-Af Amer) POC Glucose (mg/dL) 180 H Random Glucose Calcium Total Bilirubin AST ALT Alkaline Phosphatase Total Protein Albumin Globulin Albumin/Globulin Ratio Procalcitonin Free T4 0.97 Thyroxine (T4) TSH 3rd Generation Fluid Source Fluid Glucose Stool Occult Blood 07/10/17 07/10/17 11:04 11:47 WBC RBC Hgb Hct MCV MCH MCHC RDW Plt Count MPV Neut % (Auto) Lymph % (Auto) [place] % (Auto) Eos % (Auto) Baso % (Auto) Neut # Lymph # [place] # Eos # Baso # pCO2 pO2 HCO3 ABG pH ABG Total CO2 ABG O2 Saturation ABG O2 Content ABG Base Excess ABG Hemoglobin ABG Carboxyhemoglobin POC ABG HHb (Measured) ABG Methemoglobin ABG O2 Capacity Andry Test A-a O2 Difference Hgb O2 Saturation Vent Mode Mechanical Rate FiO2 Tidal Volume PEEP Sodium Potassium Chloride Carbon Dioxide Anion Gap BUN Creatinine Est GFR ( Amer) Est GFR (Non-Af Amer) POC Glucose (mg/dL) 179 H Random Glucose Calcium Total Bilirubin AST ALT Alkaline Phosphatase Total Protein Albumin Globulin Albumin/Globulin Ratio Procalcitonin Free T4 Thyroxine (T4) TSH 3rd Generation Fluid Source Pleural Fluid Glucose 145 Stool Occult Blood Fingerstick Blood Sugar Results: 179 <Ervin Mata - Last Filed: 07/10/17 17:20> CCU Subjective - Physician Review Subjective (Free Text): Attestation: Patient seen and examined at the bedside with Resident Dr. Tita Magana; and I agree with his outline of plans and management documented above as discussed on AM rounds reflecting my review of all applicable clinical data, and participation in the care of the patient throughout the day in ICU; July 10, 2017.
--- NOTE | 2017-07-10 13:51 | CP.PCM.PN ---
Subjective - Date & Time of Evaluation Date of Evaluation: 07/10/17 Time of Evaluation: 13:43 - Subjective Subjective: Pt s/e. ct of chest yesterday: Left basilar pneumothorax, and not fully expanded left lung. right pleural effusion with comp atelectasis . Biltateral parenchymal dis of lower lobes. a/p: Right pneumothorax, basilar, loculated, and pleural effusion. Consider talc slurry pleurodesis next week in OR. D/w Dr. Mata. Both tubes on suction today; Off suction right tube starting tomorrow, and Left tube to be on Suction continuously. Objective - Vital Signs/Intake and Output Vital Signs (last 24 hours): Temp Pulse Resp BP Pulse Ox 98.5 F 75 22 157/56 H 100 07/10/17 12:00 07/10/17 12:00 07/10/17 12:00 07/10/17 12:00 07/10/17 12:00 Intake and Output: 07/10/17 07/10/17 06:59 18:59 Intake Total 1345 850 Output Total 1001 10 Balance 344 840 - Medications Medications: Current Medications Albuterol/Ipratropium (Duoneb 3 Mg/0.5 Mg (3 Ml) Ud) 3 ml INH RQID [facility] Last Admin: 07/10/17 11:32 Dose: 3 ml Amlodipine Besylate (Norvasc) 10 mg PO DAILY [facility] Last Admin: 07/10/17 09:33 Dose: 10 mg Bacitracin (Bacitracin Oint) 1 applic TOP TID [facility] Last Admin: 07/10/17 12:10 Dose: 1 applic Calcium Acetate (Phoslo) 2,001 mg PO 0830,1200,1830 [facility] Last Admin: 07/10/17 12:13 Dose: 2,001 mg Dextrose (Dextrose 50% Inj) 0 ml IV STAT PRN; Protocol PRN Reason: Hypoglycemia Protocol Dextrose (Glutose 15) 0 gm PO ONCE PRN; Protocol PRN Reason: Hypoglycemia Protocol Enoxaparin Sodium (Lovenox) 30 mg SC DAILY [facility] PRN Reason: Protocol Last Admin: 07/10/17 09:25 Dose: 30 mg Epoetin Roel (Procrit) 14,000 unit SC MWF [facility] Last Admin: 07/09/17 11:40 Dose: 14,000 unit Glipizide (Glucotrol) 2.5 mg PO BIDAC [facility] Last Admin: 07/10/17 09:23 Dose: 2.5 mg Glucagon (Glucagen Diagnostic Kit) 0 mg IM STAT PRN; Protocol PRN Reason: Hypoglycemia Protocol Hydralazine HCl (Apresoline) 25 mg PO Q8 [facility] Last Admin: 07/10/17 09:20 Dose: 25 mg Hydromorphone HCl (Dilaudid) 0.5 mg IVP Q4H PRN PRN Reason: Pain, moderate (4-7) Stop: 07/10/17 18:54 Hydromorphone HCl (Dilaudid) 0.5 mg IVP Q8 [facility] Last Admin: 07/10/17 09:22 Dose: 0.5 mg Linezolid (Zyvox 600mg/300ml D5w) 600 mg in 300 mls @ 300 mls/hr IVPB Q12 [facility] PRN Reason: Protocol Last Admin: 07/10/17 09:38 Dose: 300 mls/hr Cefepime HCl 1 gm/ Sodium (Chloride) 100 mls @ 100 mls/hr IVPB DAILY [facility] PRN Reason: Protocol Last Admin: 07/10/17 09:31 Dose: 100 mls/hr Micafungin Sodium 100 mg/ (Sodium Chloride) 100 mls @ 100 mls/hr IVPB DAILY [facility] PRN Reason: Protocol Last Admin: 07/09/17 08:43 Dose: 100 mls/hr Levetiracetam 500 mg/ Sodium (Chloride) 105 mls @ 210 mls/hr IVPB Q12 [facility] Last Admin: 07/10/17 09:24 Dose: 210 mls/hr Insulin Human Lispro (Humalog) 0 units SC ACHS [facility] PRN Reason: Protocol Last Admin: 07/10/17 12:11 Dose: Not Given Levothyroxine Sodium (Synthroid) 50 mcg PO DAILY@0630 [facility] Last Admin: 07/10/17 05:41 Dose: 50 mcg Metoprolol Tartrate (Lopressor) 5 mg IVP Q6 [facility] Last Admin: 07/10/17 09:24 Dose: 5 mg Pantoprazole Sodium (Protonix Inj) 40 mg IVP Q12 [facility] Last Admin: 07/10/17 09:35 Dose: 40 mg Sodium Bicarbonate (Sodium Bicarbonate Tab) 1,300 mg PO Q8 [facility] Last Admin: 07/02/17 16:23 Dose: 1,300 mg Thiamine HCl (Vitamin B1 Tab) 100 mg PO BID [facility] Last Admin: 07/10/17 09:36 Dose: 100 mg - Labs Labs: 07/10/17 04:20 07/10/17 04:20 PT 13.4 Seconds (9.8-13.1) H 07/08/17 12:50 INR 1.2 (0.9-1.2) 07/08/17 12:50 APTT 30.8 Seconds (25.6-37.1) 07/08/17 12:50
--- NOTE | 2017-07-10 16:13 | CP.PCM.PN ---
Subjective - Date & Time of Evaluation Date of Evaluation: 07/10/17 Time of Evaluation: 11:00 - Subjective Subjective: Vented Objective - Vital Signs/Intake and Output Vital Signs (last 24 hours): Temp Pulse Resp BP Pulse Ox 98.5 F 75 22 157/56 H 100 07/10/17 12:00 07/10/17 12:00 07/10/17 12:00 07/10/17 12:00 07/10/17 12:00 Intake and Output: 07/10/17 07/10/17 06:59 18:59 Intake Total 1345 850 Output Total 1001 10 Balance 344 840 - Medications Medications: Current Medications Albuterol/Ipratropium (Duoneb 3 Mg/0.5 Mg (3 Ml) Ud) 3 ml INH RQID [facility] Last Admin: 07/10/17 15:02 Dose: 3 ml Amlodipine Besylate (Norvasc) 10 mg PO DAILY [facility] Last Admin: 07/10/17 09:33 Dose: 10 mg Bacitracin (Bacitracin Oint) 1 applic TOP DAILY [facility] Calcium Acetate (Phoslo) 2,001 mg PO 0830,1200,1830 [facility] Last Admin: 07/10/17 12:13 Dose: 2,001 mg Dextrose (Dextrose 50% Inj) 0 ml IV STAT PRN; Protocol PRN Reason: Hypoglycemia Protocol Dextrose (Glutose 15) 0 gm PO ONCE PRN; Protocol PRN Reason: Hypoglycemia Protocol Enoxaparin Sodium (Lovenox) 30 mg SC DAILY [facility] PRN Reason: Protocol Last Admin: 07/10/17 09:25 Dose: 30 mg Epoetin Roel (Procrit) 14,000 unit SC MWF [facility] Last Admin: 07/09/17 11:40 Dose: 14,000 unit Glipizide (Glucotrol) 2.5 mg PO BIDAC [facility] Last Admin: 07/10/17 09:23 Dose: 2.5 mg Glucagon (Glucagen Diagnostic Kit) 0 mg IM STAT PRN; Protocol PRN Reason: Hypoglycemia Protocol Hydralazine HCl (Apresoline) 25 mg PO Q8 [facility] Last Admin: 07/10/17 09:20 Dose: 25 mg Hydromorphone HCl (Dilaudid) 0.5 mg IVP Q4H PRN PRN Reason: Pain, moderate (4-7) Stop: 07/10/17 18:54 Hydromorphone HCl (Dilaudid) 0.5 mg IVP Q8 [facility] Last Admin: 07/10/17 09:22 Dose: 0.5 mg Linezolid (Zyvox 600mg/300ml D5w) 600 mg in 300 mls @ 300 mls/hr IVPB Q12 [facility] PRN Reason: Protocol Last Admin: 07/10/17 09:38 Dose: 300 mls/hr Cefepime HCl 1 gm/ Sodium (Chloride) 100 mls @ 100 mls/hr IVPB DAILY [facility] PRN Reason: Protocol Last Admin: 07/10/17 09:31 Dose: 100 mls/hr Micafungin Sodium 100 mg/ (Sodium Chloride) 100 mls @ 100 mls/hr IVPB DAILY [facility] PRN Reason: Protocol Last Admin: 07/09/17 08:43 Dose: 100 mls/hr Levetiracetam 500 mg/ Sodium (Chloride) 105 mls @ 210 mls/hr IVPB Q12 [facility] Last Admin: 07/10/17 09:24 Dose: 210 mls/hr Insulin Human Lispro (Humalog) 0 units SC ACHS [facility] PRN Reason: Protocol Last Admin: 07/10/17 12:11 Dose: Not Given Levothyroxine Sodium (Synthroid) 50 mcg PO DAILY@0630 [facility] Last Admin: 07/10/17 05:41 Dose: 50 mcg Metoprolol Tartrate (Lopressor) 5 mg IVP Q6 [facility] Last Admin: 07/10/17 09:24 Dose: 5 mg Pantoprazole Sodium (Protonix Inj) 40 mg IVP Q12 [facility] Last Admin: 07/10/17 09:35 Dose: 40 mg Sodium Bicarbonate (Sodium Bicarbonate Tab) 1,300 mg PO Q8 [facility] Last Admin: 07/02/17 16:23 Dose: 1,300 mg Thiamine HCl (Vitamin B1 Tab) 100 mg PO BID [facility] Last Admin: 07/10/17 09:36 Dose: 100 mg - Labs Labs: 07/10/17 04:20 07/10/17 04:20 PT 13.4 Seconds (9.8-13.1) H 07/08/17 12:50 INR 1.2 (0.9-1.2) 07/08/17 12:50 APTT 30.8 Seconds (25.6-37.1) 07/08/17 12:50 - Head Exam Head Exam: ATRAUMATIC - Eye Exam Eye Exam: Normal appearance - ENT Exam ENT Exam: Mucous Membranes Dry - Respiratory Exam Respiratory Exam: Decreased Breath Sounds - Cardiovascular Exam Cardiovascular Exam: +S1, +S2 - GI/Abdominal Exam GI & Abdominal Exam: Normal Bowel Sounds Assessment and Plan (1) Thrombocytopenia Assessment & Plan: likely sepsis related Status: Acute (2) Anemia Assessment & Plan: chronic disease and renal disease on EPO transfusion support Status: Chronic (3) MGUS (monoclonal gammopathy of unknown significance) Assessment & Plan: by bone marrow biopsy Status: Acute
[2017-07-10] MEDS: Micafungin 100 MG in Sodium Chloride 0.9% 100 ML IVPB SCH (16:37)
--- NOTE | 2017-07-10 22:11 | CP.PCM.PN ---
Objective - Vital Signs/Intake and Output Vital Signs (last 24 hours): Temp Pulse Resp BP Pulse Ox 99.7 F H 76 13 154/56 H 100 07/10/17 16:00 07/10/17 22:02 07/10/17 18:00 07/10/17 22:02 07/10/17 18:00 Intake and Output: 07/10/17 07/11/17 18:59 06:59 Intake Total 1664 Output Total 970 Balance 694 - Medications Medications: Current Medications Albuterol/Ipratropium (Duoneb 3 Mg/0.5 Mg (3 Ml) Ud) 3 ml INH RQID [facility] Last Admin: 07/10/17 19:13 Dose: 3 ml Amlodipine Besylate (Norvasc) 10 mg PO DAILY [facility] Last Admin: 07/10/17 09:33 Dose: 10 mg Bacitracin (Bacitracin Oint) 1 applic TOP DAILY [facility] Calcium Acetate (Phoslo) 2,001 mg PO 0830,1200,1830 [facility] Last Admin: 07/10/17 17:38 Dose: 2,001 mg Dextrose (Dextrose 50% Inj) 0 ml IV STAT PRN; Protocol PRN Reason: Hypoglycemia Protocol Dextrose (Glutose 15) 0 gm PO ONCE PRN; Protocol PRN Reason: Hypoglycemia Protocol Enoxaparin Sodium (Lovenox) 30 mg SC DAILY [facility] PRN Reason: Protocol Last Admin: 07/10/17 09:25 Dose: 30 mg Epoetin Roel (Procrit) 14,000 unit SC MWF [facility] Last Admin: 07/09/17 11:40 Dose: 14,000 unit Glipizide (Glucotrol) 2.5 mg PO BIDAC [facility] Last Admin: 07/10/17 16:36 Dose: 2.5 mg Glucagon (Glucagen Diagnostic Kit) 0 mg IM STAT PRN; Protocol PRN Reason: Hypoglycemia Protocol Hydralazine HCl (Apresoline) 25 mg PO Q8 [facility] Last Admin: 07/10/17 16:33 Dose: 25 mg Hydromorphone HCl (Dilaudid) 0.5 mg IVP Q8 [facility] Last Admin: 07/10/17 16:34 Dose: 0.5 mg Linezolid (Zyvox 600mg/300ml D5w) 600 mg in 300 mls @ 300 mls/hr IVPB Q12 [facility] PRN Reason: Protocol Last Admin: 07/10/17 22:03 Dose: 300 mls/hr Cefepime HCl 1 gm/ Sodium (Chloride) 100 mls @ 100 mls/hr IVPB DAILY [facility] PRN Reason: Protocol Last Admin: 07/10/17 09:31 Dose: 100 mls/hr Micafungin Sodium 100 mg/ (Sodium Chloride) 100 mls @ 100 mls/hr IVPB DAILY [facility] PRN Reason: Protocol Last Admin: 07/10/17 16:37 Dose: 100 mls/hr Levetiracetam 500 mg/ Sodium (Chloride) 105 mls @ 210 mls/hr IVPB Q12 [facility] Last Admin: 07/10/17 22:01 Dose: 210 mls/hr Insulin Human Lispro (Humalog) 0 units SC ACHS [facility] PRN Reason: Protocol Last Admin: 07/10/17 21:57 Dose: Not Given Levothyroxine Sodium (Synthroid) 50 mcg PO DAILY@0630 [facility] Last Admin: 07/10/17 05:41 Dose: 50 mcg Metoprolol Tartrate (Lopressor) 5 mg IVP Q6 [facility] Last Admin: 07/10/17 22:02 Dose: 5 mg Mirtazapine (Remeron) 30 mg PO HS [facility] Last Admin: 07/10/17 22:02 Dose: 30 mg Pantoprazole Sodium (Protonix Inj) 40 mg IVP Q12 [facility] Last Admin: 07/10/17 22:02 Dose: 40 mg Sodium Bicarbonate (Sodium Bicarbonate Tab) 1,300 mg PO Q8 [facility] Last Admin: 07/02/17 16:23 Dose: 1,300 mg Thiamine HCl (Vitamin B1 Tab) 100 mg PO BID [facility] Last Admin: 07/10/17 16:39 Dose: 100 mg - Labs Labs: 07/10/17 04:20 07/10/17 04:20 PT 13.4 Seconds (9.8-13.1) H 07/08/17 12:50 INR 1.2 (0.9-1.2) 07/08/17 12:50 APTT 30.8 Seconds (25.6-37.1) 07/08/17 12:50 Assessment and Plan (1) Acute renal failure Status: Acute (2) Pleural effusion Status: Chronic (3) Nephrotic syndrome Status: Chronic (4) Chronic kidney disease, stage 3 (moderate) Status: Chronic (5) Hypertensive CKD (chronic kidney disease) Status: Acute (6) Hypothermia Status: Acute (7) Altered mental status Status: Acute (8) SIRS (systemic inflammatory response syndrome) Status: Acute (9) Anemia Status: Chronic (10) Monoclonal gammopathy Status: Chronic
[2017-07-11] MEDS: HYDROmorphone 0.5 mg/0.5 ml ISec IVP SCH (02:03)
[2017-07-11] MEDS: Metoprolol 1 mg/ml Inj IVP SCH ×4 (04:49→21:49)
[2017-07-11 05:53] LABS: ABG ALLEN TEST YES; ARTERIAL BLOOD GAS HCO3 24.7 mmol/L (21-28); ARTERIAL BLOOD GAS HEMOGLOBIN 7.5 g/dL (11.7-17.4); ARTERIAL BLOOD GAS O2 CAPACITY 10.5 mL/dL (16-24); ARTERIAL BLOOD GAS O2 CONTENT 10.5 ML/dL (15-23); ARTERIAL BLOOD GAS O2 SAT 100.1 % (95-98); ARTERIAL BLOOD GAS PCO2 42 mm/Hg (35-45); ARTERIAL BLOOD GAS PH 7.38 (7.35-7.45); ARTERIAL BLOOD GAS PO2 95 mm/Hg (80-100); ARTERIAL BLOOD GAS TCO2 26.1 mmol/L (22-28)
[2017-07-11 06:26] LABS: HEMOGLOBIN 7.2 g/dL (12.0-18.0); MEAN CELL VOLUME 93.2 fl (80.0-94.0); MEAN CORPUSCULAR HEMOGLOBIN 30.6 pg (27.0-31.0); MEAN CORPUSCULAR HGB CONC 32.9 g/dL (33.0-37.0); RBC 2.35 Mil/uL (4.40-5.90); RED CELL DISTRIBUTION WIDTH 15.5 % (11.5-14.5); WHITE BLOOD COUNT 4.6 K/uL (4.8-10.8)
[2017-07-11] MEDS: Levothyroxine 50 MCG TAB PO SCH (06:29)
[2017-07-11 06:34] LABS: ALBUMIN 2.4 g/dL (3.5-5.0); CALCIUM 8.5 mg/dL (8.4-10.2)
[2017-07-11] MEDS: Insulin Lispro (humaLOG) 100 Units/ml Inj SC SCH ×4 (06:36→21:54)
--- NOTE | 2017-07-11 07:22 | CP.PCM.PN ---
Subjective - Date & Time of Evaluation Date of Evaluation: 07/11/17 Time of Evaluation: 06:35 - Subjective Subjective: CT surgery progress note for Dr. Hannah Vila, PGY-1 Pt S & E at bedside. Pt intubated, PRVC RR 14, TV 400, PEEP 5, FiO2 30%. Right CT w/655 serosanguinous output; Left CT w/0 output over 12H. Objective - Vital Signs/Intake and Output Vital Signs (last 24 hours): Temp Pulse Resp BP Pulse Ox 98.8 F 71 16 135/52 L 96 07/11/17 04:00 07/11/17 06:00 07/11/17 06:00 07/11/17 06:00 07/11/17 06:00 Intake and Output: 07/11/17 07/11/17 06:59 18:59 Intake Total 1195 Output Total 700 Balance 495 - Medications Medications: Current Medications Albuterol/Ipratropium (Duoneb 3 Mg/0.5 Mg (3 Ml) Ud) 3 ml INH RQID [facility] Last Admin: 07/10/17 19:13 Dose: 3 ml Amlodipine Besylate (Norvasc) 10 mg PO DAILY [facility] Last Admin: 07/10/17 09:33 Dose: 10 mg Bacitracin (Bacitracin Oint) 1 applic TOP DAILY [facility] Calcium Acetate (Phoslo) 2,001 mg PO 0830,1200,1830 [facility] Last Admin: 07/10/17 17:38 Dose: 2,001 mg Dextrose (Dextrose 50% Inj) 0 ml IV STAT PRN; Protocol PRN Reason: Hypoglycemia Protocol Dextrose (Glutose 15) 0 gm PO ONCE PRN; Protocol PRN Reason: Hypoglycemia Protocol Enoxaparin Sodium (Lovenox) 30 mg SC DAILY [facility] PRN Reason: Protocol Last Admin: 07/10/17 09:25 Dose: 30 mg Epoetin Roel (Procrit) 14,000 unit SC MWF [facility] Last Admin: 07/09/17 11:40 Dose: 14,000 unit Glipizide (Glucotrol) 2.5 mg PO BIDAC [facility] Last Admin: 07/10/17 16:36 Dose: 2.5 mg Glucagon (Glucagen Diagnostic Kit) 0 mg IM STAT PRN; Protocol PRN Reason: Hypoglycemia Protocol Hydralazine HCl (Apresoline) 25 mg PO Q8 [facility] Last Admin: 07/11/17 02:03 Dose: 25 mg Hydromorphone HCl (Dilaudid) 0.5 mg IVP Q8 [facility] Last Admin: 07/11/17 02:03 Dose: 0.5 mg Linezolid (Zyvox 600mg/300ml D5w) 600 mg in 300 mls @ 300 mls/hr IVPB Q12 [facility] PRN Reason: Protocol Last Admin: 07/10/17 22:03 Dose: 300 mls/hr Cefepime HCl 1 gm/ Sodium (Chloride) 100 mls @ 100 mls/hr IVPB DAILY [facility] PRN Reason: Protocol Last Admin: 07/10/17 09:31 Dose: 100 mls/hr Micafungin Sodium 100 mg/ (Sodium Chloride) 100 mls @ 100 mls/hr IVPB DAILY [facility] PRN Reason: Protocol Last Admin: 07/10/17 16:37 Dose: 100 mls/hr Levetiracetam 500 mg/ Sodium (Chloride) 105 mls @ 210 mls/hr IVPB Q12 [facility] Last Admin: 07/10/17 22:01 Dose: 210 mls/hr Insulin Human Lispro (Humalog) 0 units SC ACHS [facility] PRN Reason: Protocol Last Admin: 07/11/17 06:36 Dose: Not Given Levothyroxine Sodium (Synthroid) 50 mcg PO DAILY@0630 [facility] Last Admin: 07/11/17 06:29 Dose: 50 mcg Metoprolol Tartrate (Lopressor) 5 mg IVP Q6 [facility] Last Admin: 07/11/17 04:49 Dose: 5 mg Mirtazapine (Remeron) 30 mg PO HS [facility] Last Admin: 07/10/17 22:02 Dose: 30 mg Pantoprazole Sodium (Protonix Inj) 40 mg IVP Q12 [facility] Last Admin: 07/10/17 22:02 Dose: 40 mg Sodium Bicarbonate (Sodium Bicarbonate Tab) 1,300 mg PO Q8 [facility] Last Admin: 07/02/17 16:23 Dose: 1,300 mg Thiamine HCl (Vitamin B1 Tab) 100 mg PO BID [facility] Last Admin: 07/10/17 16:39 Dose: 100 mg - Labs Labs: 07/11/17 05:00 07/11/17 04:55 PT 13.4 Seconds (9.8-13.1) H 07/08/17 12:50 INR 1.2 (0.9-1.2) 07/08/17 12:50 APTT 30.8 Seconds (25.6-37.1) 07/08/17 12:50 - Constitutional Appears: Non-toxic, No Acute Distress - Head Exam Head Exam: ATRAUMATIC, NORMAL INSPECTION, NORMOCEPHALIC - Eye Exam Eye Exam: EOMI, Normal appearance - ENT Exam ENT Exam: Mucous Membranes Dry (ET in place) - Neck Exam Neck Exam: Normal Inspection - Respiratory Exam Respiratory Exam: NORMAL BREATHING PATTERN (on mech vent) Additional comments: Left chest wall with CT in place, dressing C/D/I; Right chest wall with CT in place, dressing C/D/I - Cardiovascular Exam Cardiovascular Exam: REGULAR RHYTHM, +S1, +S2 - Extremities Exam Extremities Exam: Pedal Edema Additional comments: edema of upper extremities - Neurological Exam Neurological Exam: Awake. absent: Oriented x3 Additional comments: intubated, non verbal - Skin Skin Exam: Dry, Intact, Normal Color, Warm Assessment and Plan - Assessment and Plan (Free Text) Assessment: 66M w/recurrent left pleural effusion s/p Left CT placement POD#3, s/p Right CT placement POD#1 Plan: Daily CXR Right CT to water seal Left CT to suction 2/2 persistent pneumothorax Monitor output Dressing changes PRN Fluid from Left CT placement WBC WNL (99) RBC 35, 640 PMNs 36 Lymphocytes 8 (high) Macrophages 5 (high) Glucose WNL (145) LDH 225 Protein <2 WNL turbid FU fluid analysis from R pleural fluid Will DW attending Cadence, PGY-1
--- NOTE | 2017-07-11 07:23 | PN ---
DATE: 07/10/17 ENDOCRINOLOGY FOLLOWUP NOTE LOCATION: Room 433-1 ICU. SUBJECTIVE: This is a 66-year-old male with underlying bilateral pleural effusion and has currently improved. His glycemic levels are fluctuating, but much improved at this time. The latest glucose have ranged from 125 to 182 mg/dL. The latest chemistries showed a BUN of 51, sodium , potassium 3.4, chloride , and creatinine 2.9. as ordered. Low dose correction scale using euthyroid syndrome. We will obtain serial chemistries and supplement accordingly as needed. Bettina Mann MD
[2017-07-11] MEDS: Albuterol-Ipratrop 3 mg / 0.5 (3 ml) UD INH SCH ×4 (07:34→19:07)
--- NOTE | 2017-07-11 07:36 | RAD ---
HISTORY: chest tubes COMPARISON: Portable chest 07/10/2017. FINDINGS: LUNGS: Endotracheal and nasogastric tubes do not appear simply changed in position. Left central venous line also unchanged. Bilateral chest tubes appear stable as well. Limited left basilar atelectasis or infiltrate persists, borderline at the right base. PLEURA: Mild left pleural effusions unchanged with likely minimal right pleural effusion not excluded. No pneumothorax bilaterally. CARDIOVASCULAR: Normal cardiac size again evident. No definite pulmonary vascular derangement. OSSEOUS STRUCTURES: No significant abnormalities. VISUALIZED UPPER ABDOMEN: Normal. OTHER FINDINGS: None. IMPRESSION: Borderline right basilar airspace disease now evident in representing interval improvement. Mild left and borderline right pleural effusions are unchanged in appearance with underlying left basilar atelectasis or infiltrate persisting.
[2017-07-11] MEDS: levETIRAcetam 500 MG in Sodium Chloride 0.9% 100 ML IVPB SCH ×2 (08:57→21:48)
[2017-07-11] MEDS: Enoxaparin 30 mg Syringe SC SCH (09:04)
[2017-07-11] MEDS: Bacitracin OINT 15GM TOP SCH (09:04)
[2017-07-11] MEDS: Epoetin Alfa 20000 UNIT/ML Inj SC SCH (09:04)
--- NOTE | 2017-07-11 09:26 | CP.PCM.PN ---
Subjective - Date & Time of Evaluation Date of Evaluation: 07/11/17 Time of Evaluation: 07:10 - Subjective Subjective: Patient seen and examined bedside in ICU, intubated day #8. PRVC RR 14, TV 400 , PEEP 5, FiO2 30%. Patient awake, alert, not obey commands today. B/L chest tube placed, 655 serosanguinous right side and left side not new draignage.eden urine 150 ml Objective - Vital Signs/Intake and Output Vital Signs (last 24 hours): Temp Pulse Resp BP Pulse Ox 98.7 F 82 12 147/54 L 98 07/11/17 08:00 07/11/17 09:25 07/11/17 08:00 07/11/17 09:25 07/11/17 08:00 Intake and Output: 07/11/17 07/11/17 06:59 18:59 Intake Total 1195 Output Total 700 Balance 495 - Medications Medications: Current Medications Albuterol/Ipratropium (Duoneb 3 Mg/0.5 Mg (3 Ml) Ud) 3 ml INH RQID [facility] Last Admin: 07/11/17 07:34 Dose: 3 ml Amlodipine Besylate (Norvasc) 10 mg PO DAILY [facility] Last Admin: 07/11/17 09:10 Dose: 10 mg Bacitracin (Bacitracin Oint) 1 applic TOP DAILY [facility] Last Admin: 07/11/17 09:04 Dose: 1 applic Calcium Acetate (Phoslo) 2,001 mg PO 0830,1200,1830 [facility] Last Admin: 07/11/17 09:11 Dose: 2,001 mg Dextrose (Dextrose 50% Inj) 0 ml IV STAT PRN; Protocol PRN Reason: Hypoglycemia Protocol Dextrose (Glutose 15) 0 gm PO ONCE PRN; Protocol PRN Reason: Hypoglycemia Protocol Enoxaparin Sodium (Lovenox) 30 mg SC DAILY [facility] PRN Reason: Protocol Last Admin: 07/11/17 09:04 Dose: 30 mg Epoetin Roel (Procrit) 14,000 unit SC MWF [facility] Last Admin: 07/11/17 09:04 Dose: 14,000 unit Furosemide (Lasix) 60 mg IVP ONCE ONE Stop: 07/11/17 09:31 Glipizide (Glucotrol) 2.5 mg PO BIDAC [facility] Last Admin: 07/11/17 09:10 Dose: 2.5 mg Glucagon (Glucagen Diagnostic Kit) 0 mg IM STAT PRN; Protocol PRN Reason: Hypoglycemia Protocol Hydralazine HCl (Apresoline) 25 mg PO Q8 [facility] Last Admin: 07/11/17 09:10 Dose: 25 mg Hydromorphone HCl (Dilaudid) 0.5 mg IVP Q8 [facility] Last Admin: 07/11/17 02:03 Dose: 0.5 mg Linezolid (Zyvox 600mg/300ml D5w) 600 mg in 300 mls @ 300 mls/hr IVPB Q12 [facility] PRN Reason: Protocol Last Admin: 07/10/17 22:03 Dose: 300 mls/hr Cefepime HCl 1 gm/ Sodium (Chloride) 100 mls @ 100 mls/hr IVPB DAILY [facility] PRN Reason: Protocol Last Admin: 07/10/17 09:31 Dose: 100 mls/hr Micafungin Sodium 100 mg/ (Sodium Chloride) 100 mls @ 100 mls/hr IVPB DAILY [facility] PRN Reason: Protocol Last Admin: 07/10/17 16:37 Dose: 100 mls/hr Levetiracetam 500 mg/ Sodium (Chloride) 105 mls @ 210 mls/hr IVPB Q12 [facility] Last Admin: 07/11/17 08:57 Dose: 210 mls/hr Insulin Human Lispro (Humalog) 0 units SC ACHS [facility] PRN Reason: Protocol Last Admin: 07/11/17 06:36 Dose: Not Given Levothyroxine Sodium (Synthroid) 50 mcg PO DAILY@0630 [facility] Last Admin: 07/11/17 06:29 Dose: 50 mcg Metoprolol Tartrate (Lopressor) 5 mg IVP Q6 [facility] Last Admin: 07/11/17 09:25 Dose: 5 mg Mirtazapine (Remeron) 30 mg PO HS [facility] Last Admin: 07/10/17 22:02 Dose: 30 mg Pantoprazole Sodium (Protonix Inj) 40 mg IVP Q12 [facility] Last Admin: 07/11/17 09:08 Dose: 40 mg Sodium Bicarbonate (Sodium Bicarbonate Tab) 1,300 mg PO Q8 [facility] Last Admin: 07/02/17 16:23 Dose: 1,300 mg Thiamine HCl (Vitamin B1 Tab) 100 mg PO BID [facility] Last Admin: 07/11/17 09:10 Dose: 100 mg - Labs Labs: 07/11/17 05:00 07/11/17 04:55 PT 13.4 Seconds (9.8-13.1) H 07/08/17 12:50 INR 1.2 (0.9-1.2) 07/08/17 12:50 APTT 30.8 Seconds (25.6-37.1) 07/08/17 12:50 - Constitutional Appears: In Acute Distress - Head Exam Head Exam: ATRAUMATIC, NORMOCEPHALIC - Eye Exam Eye Exam: Normal appearance - ENT Exam ENT Exam: Mucous Membranes Moist - Respiratory Exam Respiratory Exam: Decreased Breath Sounds, Rhonchi. absent: Rales, Wheezes Additional comments: b/l bibasal. B/L chest tubes. left triple lumen subclavian catheter. - Cardiovascular Exam Cardiovascular Exam: REGULAR RHYTHM, +S1, +S2 - GI/Abdominal Exam GI & Abdominal Exam: Soft, Normal Bowel Sounds. absent: Tenderness - Extremities Exam Extremities Exam: absent: Pedal Edema Additional comments: left hand abrasion with scab formation mild erythema - Neurological Exam Neurological Exam: Alert, Awake Additional comments: on ventilator, alert, awake, not moving much hand and feet today - Skin Additional comments: sacral ulcer resolved. 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 Patient is DNR status. Assessment/Plan 1) Acute Respiratory Failure -improving -on ventilator day #8 .CPAP trial tolerated yesterday -sputum fungus cx: preliminary neg. on mycamine day #10 2) Recurrent Left Pleural effusion, Transudate -Pulmonology consult appreciated: no benefit for bronchoscopy or lung biopsy -IR consult appreciated -Cardiothoracic surgery consult appreciated - s/p Chest tube placement POD#3 left side no output in 12 h -s/p chest tube placement POD#1 right side 655 ml serosanguineous fluid -quantiferon gold:indeterminated high 3) HAP -improved -c/w cefepime day # 16, linezolid day # 17 -Procalcitonin 14.4 trending down 0.7 4) DM nephropathy -Kidney biopsy 06/05/17: Diabetic nephropathy, nodular glomerulosclerosis, associated with aprox 40 % globally sclerosed glomeruli( calss III), 10-15 % segmentally sclerosed glomeruli, docal moderate interstitial fibrosis and mod vascular sclerosis, including marked hyaline arteriolosclerosis.NO EVIDENCE OF MONOCLONAL LIGHT OR HEAVY CHAIN-RELATED RENAL DISEASE. -Nephro consult appreciated: c/w albumin, dilaudid for pain, no morphine, no NSAID. No steroids needed -Renal duplex: no renal vein thrombosis 5) CHINTAN on CKD stage 4 w/ new onset of ATN - Nephorologist consult appreciated -s/p lasix 6) Thrombocytopenia -HemOnc consult appreciated -trending up [id number] 7) Hypothyroidism, subclinical -Econdrinologist consult appreciated -on levothryroxin 8) Hyperprolactinemia -Prolactin trending down -Endocrionologist consult suggested -MRI brain:no inracraneal hemorrhage, chronic lacunar infarct b/l cerebral, changes in dali haydee represent chronic ischemia or sequela of osmotic myelonilolysis not excluded.chronic b/l basal nuclei lacunar infarcts, mastoid ppasification secondary to intubation 9) Pressure Ulcer and TDI -resolved 10) pEF CHF -Echo 05/31/17 normal EF 60-65% -c/w labetalol, hydralazine 11) DM 2 -SSI 12) HTN - Hydralazine 25 Q8. To keep systolic BP 150 - Labetalol 5m IV PRN 13) Anemia -secondary to CKD -s/p transfucion 1 u pRBC -Hgb 7.2 today. f/u CBC -C/W procrit 14) DVT prophylaxis -Lovenox 30 mg sc (renal dose) 15) GI prophylaxis -Pantoprazol 40 mg IV
[2017-07-11] MEDS: Cefepime 1 GM in Sodium Chloride 0.9% 100 ML IVPB SCH (09:32)
--- NOTE | 2017-07-11 09:53 | CP.PCM.PN ---
Subjective - Date & Time of Evaluation Date of Evaluation: 07/11/17 Time of Evaluation: 09:50 - Subjective Subjective: Mr. Durand was seen and examined at the bedside in ICU. He is alert, able to answer using non-verbal cues such as nodding or shaking his head. He denies any headache, dizziness, or numbness. He remains on mechanical ventilation with GCS- 12T. He has a bilateral chest tube via gravity draining to a serosanguinous fluid. He has bilateral lower extremities SCD's . There was no untoward events overnight. Objective - Vital Signs/Intake and Output Vital Signs (last 24 hours): Temp Pulse Resp BP Pulse Ox 98.7 F 82 12 147/54 L 98 07/11/17 08:00 07/11/17 09:25 07/11/17 08:00 07/11/17 09:25 07/11/17 08:00 Intake and Output: 07/11/17 07/11/17 06:59 18:59 Intake Total 1195 Output Total 700 Balance 495 - Medications Medications: Current Medications Albuterol/Ipratropium (Duoneb 3 Mg/0.5 Mg (3 Ml) Ud) 3 ml INH RQID [facility] Last Admin: 07/11/17 07:34 Dose: 3 ml Amlodipine Besylate (Norvasc) 10 mg PO DAILY [facility] Last Admin: 07/11/17 09:10 Dose: 10 mg Bacitracin (Bacitracin Oint) 1 applic TOP DAILY [facility] Last Admin: 07/11/17 09:04 Dose: 1 applic Calcium Acetate (Phoslo) 2,001 mg PO 0830,1200,1830 [facility] Last Admin: 07/11/17 09:11 Dose: 2,001 mg Dextrose (Dextrose 50% Inj) 0 ml IV STAT PRN; Protocol PRN Reason: Hypoglycemia Protocol Dextrose (Glutose 15) 0 gm PO ONCE PRN; Protocol PRN Reason: Hypoglycemia Protocol Enoxaparin Sodium (Lovenox) 30 mg SC DAILY [facility] PRN Reason: Protocol Last Admin: 07/11/17 09:04 Dose: 30 mg Epoetin Roel (Procrit) 14,000 unit SC MWF [facility] Last Admin: 07/11/17 09:04 Dose: 14,000 unit Glipizide (Glucotrol) 2.5 mg PO BIDAC [facility] Last Admin: 07/11/17 09:10 Dose: 2.5 mg Glucagon (Glucagen Diagnostic Kit) 0 mg IM STAT PRN; Protocol PRN Reason: Hypoglycemia Protocol Hydralazine HCl (Apresoline) 25 mg PO Q8 [facility] Last Admin: 07/11/17 09:10 Dose: 25 mg Hydromorphone HCl (Dilaudid) 0.5 mg IVP Q8 [facility] Last Admin: 07/11/17 02:03 Dose: 0.5 mg Linezolid (Zyvox 600mg/300ml D5w) 600 mg in 300 mls @ 300 mls/hr IVPB Q12 [facility] PRN Reason: Protocol Last Admin: 07/10/17 22:03 Dose: 300 mls/hr Cefepime HCl 1 gm/ Sodium (Chloride) 100 mls @ 100 mls/hr IVPB DAILY [facility] PRN Reason: Protocol Last Admin: 07/11/17 09:32 Dose: 100 mls/hr Micafungin Sodium 100 mg/ (Sodium Chloride) 100 mls @ 100 mls/hr IVPB DAILY [facility] PRN Reason: Protocol Last Admin: 07/10/17 16:37 Dose: 100 mls/hr Levetiracetam 500 mg/ Sodium (Chloride) 105 mls @ 210 mls/hr IVPB Q12 [facility] Last Admin: 07/11/17 08:57 Dose: 210 mls/hr Insulin Human Lispro (Humalog) 0 units SC ACHS [facility] PRN Reason: Protocol Last Admin: 07/11/17 06:36 Dose: Not Given Levothyroxine Sodium (Synthroid) 50 mcg PO DAILY@0630 [facility] Last Admin: 07/11/17 06:29 Dose: 50 mcg Metoprolol Tartrate (Lopressor) 5 mg IVP Q6 [facility] Last Admin: 07/11/17 09:25 Dose: 5 mg Mirtazapine (Remeron) 30 mg PO HS [facility] Last Admin: 07/10/17 22:02 Dose: 30 mg Pantoprazole Sodium (Protonix Inj) 40 mg IVP Q12 [facility] Last Admin: 07/11/17 09:08 Dose: 40 mg Sodium Bicarbonate (Sodium Bicarbonate Tab) 1,300 mg PO Q8 [facility] Last Admin: 07/02/17 16:23 Dose: 1,300 mg Thiamine HCl (Vitamin B1 Tab) 100 mg PO BID [facility] Last Admin: 07/11/17 09:10 Dose: 100 mg - Labs Labs: 07/11/17 05:00 07/11/17 04:55 PT 13.4 Seconds (9.8-13.1) H 07/08/17 12:50 INR 1.2 (0.9-1.2) 07/08/17 12:50 APTT 30.8 Seconds (25.6-37.1) 07/08/17 12:50 - Constitutional Appears: No Acute Distress - Head Exam Head Exam: NORMAL INSPECTION - Neurological Exam Neurological Exam: Alert, Awake Neuro motor strength exam: Left Upper Extremity: 2/1, Right Upper Extremity: 2/1 , Left Lower Extremity: 2/1, Right Lower Extremity: 2/1 Additional comments: He is able to follow simple commands, but unable to raise his bilateral lower and upper extremities. Sensation remains intact. Assessment and Plan (1) Altered mental status Assessment & Plan: Case discussed with Dr. Das, continue all current medical regimen. There is no new recommendations from neurology. Status: Acute
--- NOTE | 2017-07-11 10:14 | CP.PCM.CON ---
History of Present Illness - History of Present Illness History of Present Illness: Podiatry consulted for elongated toenails x 10. Unable to obtain true HPI due to patient intubation and altered mental status. Review of Systems - Review of Systems All systems: reviewed and no additional remarkable complaints except (per HPI) Past Patient History - Infectious Disease Hx of Infectious Diseases: None - Tetanus Immunizations Tetanus Immunization: Unknown - Past Medical History & Family History Past Medical History?: Yes - Past Social History Alcohol: None Drugs: Denies - CARDIAC Hx Cardiac Disorders: Yes Hx Congestive Heart Failure: Yes Hx Hypercholesterolemia: No Hx Hypertension: Yes - PULMONARY Hx Chronic Obstructive Pulmonary Disease (COPD): No - NEUROLOGICAL HX Cerebrovascular Accident: No - HEENT Hx HEENT Problems: No - RENAL Hx Renal Failure: Yes - ENDOCRINE/METABOLIC Hx Diabetes Mellitus Type 1: No Hx Diabetes Mellitus Type 2: Yes Hx Hypothyroidism: No - HEMATOLOGICAL/ONCOLOGICAL Hx Anemia: Yes Hx Human Immunodeficiency Virus (HIV): No Hx Sickle Cell Disease: No - INTEGUMENTARY Hx Dermatological Problems: No - MUSCULOSKELETAL/RHEUMATOLOGICAL Hx Arthritis: No Hx Rheumatoid Arthritis: No - GASTROINTESTINAL Hx Crohn's Disease: No Hx Diverticulitis: No Hx Gall Bladder Disease: No Hx Gastritis: No Hx Pancreatitis: No - GENITOURINARY/GYNECOLOGICAL Hx Genitourinary Disorders: No - PSYCHIATRIC Hx Anxiety: Yes Hx Bipolar Disorder: Yes Hx Depression: Yes Hx Paranoia: No Hx Post Traumatic Stress Disorder: No Hx Schizophrenia: No - SURGICAL HISTORY Hx Surgeries: No - ANESTHESIA Hx Anesthesia: Yes Hx Anesthesia Reactions: No Hx Malignant Hyperthermia: No Meds Allergies/Adverse Reactions: Allergies Allergy/AdvReac Type Severity Reaction Status Date / Time No Known Allergies Allergy Verified 05/21/17 16:02 - Medications Medications: Current Medications Albuterol/Ipratropium (Duoneb 3 Mg/0.5 Mg (3 Ml) Ud) 3 ml INH RQID [facility] Last Admin: 07/11/17 07:34 Dose: 3 ml Amlodipine Besylate (Norvasc) 10 mg PO DAILY [facility] Last Admin: 07/11/17 09:10 Dose: 10 mg Bacitracin (Bacitracin Oint) 1 applic TOP DAILY [facility] Last Admin: 07/11/17 09:04 Dose: 1 applic Calcium Acetate (Phoslo) 2,001 mg PO 0830,1200,1830 [facility] Last Admin: 07/11/17 09:11 Dose: 2,001 mg Dextrose (Dextrose 50% Inj) 0 ml IV STAT PRN; Protocol PRN Reason: Hypoglycemia Protocol Dextrose (Glutose 15) 0 gm PO ONCE PRN; Protocol PRN Reason: Hypoglycemia Protocol Enoxaparin Sodium (Lovenox) 30 mg SC DAILY [facility] PRN Reason: Protocol Last Admin: 07/11/17 09:04 Dose: 30 mg Epoetin Roel (Procrit) 14,000 unit SC MWF [facility] Last Admin: 07/11/17 09:04 Dose: 14,000 unit Glipizide (Glucotrol) 2.5 mg PO BIDAC [facility] Last Admin: 07/11/17 09:10 Dose: 2.5 mg Glucagon (Glucagen Diagnostic Kit) 0 mg IM STAT PRN; Protocol PRN Reason: Hypoglycemia Protocol Hydralazine HCl (Apresoline) 25 mg PO Q8 [facility] Last Admin: 07/11/17 09:10 Dose: 25 mg Hydromorphone HCl (Dilaudid) 0.5 mg IVP Q8 [facility] Last Admin: 07/11/17 02:03 Dose: 0.5 mg Linezolid (Zyvox 600mg/300ml D5w) 600 mg in 300 mls @ 300 mls/hr IVPB Q12 [facility] PRN Reason: Protocol Last Admin: 07/10/17 22:03 Dose: 300 mls/hr Cefepime HCl 1 gm/ Sodium (Chloride) 100 mls @ 100 mls/hr IVPB DAILY [facility] PRN Reason: Protocol Last Admin: 07/11/17 09:32 Dose: 100 mls/hr Micafungin Sodium 100 mg/ (Sodium Chloride) 100 mls @ 100 mls/hr IVPB DAILY [facility] PRN Reason: Protocol Last Admin: 07/10/17 16:37 Dose: 100 mls/hr Levetiracetam 500 mg/ Sodium (Chloride) 105 mls @ 210 mls/hr IVPB Q12 [facility] Last Admin: 07/11/17 08:57 Dose: 210 mls/hr Insulin Human Lispro (Humalog) 0 units SC ACHS [facility] PRN Reason: Protocol Last Admin: 07/11/17 06:36 Dose: Not Given Levothyroxine Sodium (Synthroid) 50 mcg PO DAILY@0630 [facility] Last Admin: 07/11/17 06:29 Dose: 50 mcg Metoprolol Tartrate (Lopressor) 5 mg IVP Q6 [facility] Last Admin: 07/11/17 09:25 Dose: 5 mg Mirtazapine (Remeron) 30 mg PO HS [facility] Last Admin: 07/10/17 22:02 Dose: 30 mg Pantoprazole Sodium (Protonix Inj) 40 mg IVP Q12 [facility] Last Admin: 07/11/17 09:08 Dose: 40 mg Sodium Bicarbonate (Sodium Bicarbonate Tab) 1,300 mg PO Q8 [facility] Last Admin: 07/02/17 16:23 Dose: 1,300 mg Thiamine HCl (Vitamin B1 Tab) 100 mg PO BID [facility] Last Admin: 07/11/17 09:10 Dose: 100 mg Physical Exam - Constitutional Appears: Non-toxic, No Acute Distress - Extremities Exam Additional comments: Vasc: DP/PT pulses palpable 2/4 B/L. Temperature gradient warm to cool B/L. CFT < 3 sec to all digits. No pedal edema noted. Neuro: Protective sensation unable to be assessed secondary to altered mental status and intubation Derm: Elongated dystrophic toenails x 10. No open lesions, no erythema, no ecchymosis, skin well hydrated Ortho: Tenderness to palpation of toenails x 10 - Neurological Exam Neurological exam: Altered - Psychiatric Exam Psychiatric exam: Flat Affect - Skin Skin Exam: Intact, Normal Color Results - Vital Signs Recent Vital Signs: Last Vital Signs Temp 98.7 F 07/11/17 08:00 Pulse 82 07/11/17 09:25 Resp 12 07/11/17 08:00 BP 147/54 L 07/11/17 09:25 Pulse Ox 98 07/11/17 08:00 - Labs Result Diagrams: 07/11/17 05:00 07/11/17 04:55 Labs: Laboratory Results - last 24 hr 07/10/17 07/10/17 07/10/17 11:04 11:04 11:47 WBC RBC Hgb Hct MCV MCH MCHC RDW Plt Count pCO2 pO2 HCO3 ABG pH ABG Total CO2 ABG O2 Saturation ABG O2 Content ABG Base Excess ABG Hemoglobin ABG Carboxyhemoglobin POC ABG HHb (Measured) ABG Methemoglobin ABG O2 Capacity Andry Test A-a O2 Difference Hgb O2 Saturation Vent Mode Mechanical Rate FiO2 Tidal Volume PEEP Sodium Potassium Chloride Carbon Dioxide Anion Gap BUN Creatinine Est GFR ( Amer) Est GFR (Non-Af Amer) POC Glucose (mg/dL) 179 H Random Glucose Calcium Total Bilirubin AST ALT Alkaline Phosphatase Total Protein Albumin Globulin Albumin/Globulin Ratio Fluid Source Pleural Fluid Appearance Bloody Fluid pH Fluid WBC 99.0 Fluid RBC 44393.0 H Fluid Tot Cell Count TEST NOT PERFORMED Fluid Neutrophils 37.0 H Fluid Lymphocytes 8.0 H Fld Monocyte/Macrophag 5 H Fluid Glucose 145 Fluid LDH 225 Fluid Comment Turbid 07/10/17 07/10/17 07/10/17 15:56 17:00 21:56 WBC RBC Hgb Hct MCV MCH MCHC RDW Plt Count pCO2 pO2 HCO3 ABG pH ABG Total CO2 ABG O2 Saturation ABG O2 Content ABG Base Excess ABG Hemoglobin ABG Carboxyhemoglobin POC ABG HHb (Measured) ABG Methemoglobin ABG O2 Capacity Andry Test A-a O2 Difference Hgb O2 Saturation Vent Mode Mechanical Rate FiO2 Tidal Volume PEEP Sodium Potassium Chloride Carbon Dioxide Anion Gap BUN Creatinine Est GFR ( Amer) Est GFR (Non-Af Amer) POC Glucose (mg/dL) 191 H 202 H Random Glucose Calcium Total Bilirubin AST ALT Alkaline Phosphatase Total Protein Albumin Globulin Albumin/Globulin Ratio Fluid Source Fluid Appearance Fluid pH 8.0 Fluid WBC Fluid RBC Fluid Tot Cell Count Fluid Neutrophils Fluid Lymphocytes Fld Monocyte/Macrophag Fluid Glucose Fluid LDH Fluid Comment 07/11/17 07/11/17 07/11/17 04:55 05:00 05:30 WBC 4.6 L RBC 2.35 L Hgb 7.2 L Hct 21.9 L MCV 93.2 MCH 30.6 MCHC 32.9 L RDW 15.5 H Plt Count 93 L pCO2 pO2 HCO3 ABG pH ABG Total CO2 ABG O2 Saturation ABG O2 Content ABG Base Excess ABG Hemoglobin ABG Carboxyhemoglobin POC ABG HHb (Measured) ABG Methemoglobin ABG O2 Capacity Andry Test A-a O2 Difference Hgb O2 Saturation Vent Mode Mechanical Rate FiO2 Tidal Volume PEEP Sodium 144 Potassium 3.6 Chloride 108 H Carbon Dioxide 27 Anion Gap 13 BUN 56 H Creatinine 2.6 H Est GFR ( Amer) 30 Est GFR (Non-Af Amer) 25 POC Glucose (mg/dL) 289 H Random Glucose 226 H Calcium 8.5 Total Bilirubin 0.1 L AST 20 ALT 40 Alkaline Phosphatase 165 H D Total Protein 4.9 L Albumin 2.4 L Globulin 2.5 Albumin/Globulin Ratio 1.0 Fluid Source Fluid Appearance Fluid pH Fluid WBC Fluid RBC Fluid Tot Cell Count Fluid Neutrophils Fluid Lymphocytes Fld Monocyte/Macrophag Fluid Glucose Fluid LDH Fluid Comment 07/11/17 05:34 WBC RBC Hgb Hct MCV MCH MCHC RDW Plt Count pCO2 42 pO2 95 HCO3 24.7 ABG pH 7.38 ABG Total CO2 26.1 ABG O2 Saturation 100.1 H ABG O2 Content 10.5 L ABG Base Excess -0.3 ABG Hemoglobin 7.5 L ABG Carboxyhemoglobin 1.4 POC ABG HHb (Measured) -0.1 L ABG Methemoglobin 0.9 ABG O2 Capacity 10.5 L Andry Test Yes A-a O2 Difference 66.0 Hgb O2 Saturation 97.9 Vent Mode Prvc/ac Mechanical Rate 14 FiO2 30.0 Tidal Volume 400 PEEP 5 Sodium Potassium Chloride Carbon Dioxide Anion Gap BUN Creatinine Est GFR ( Amer) Est GFR (Non-Af Amer) POC Glucose (mg/dL) Random Glucose Calcium Total Bilirubin AST ALT Alkaline Phosphatase Total Protein Albumin Globulin Albumin/Globulin Ratio Fluid Source Fluid Appearance Fluid pH Fluid WBC Fluid RBC Fluid Tot Cell Count Fluid Neutrophils Fluid Lymphocytes Fld Monocyte/Macrophag Fluid Glucose Fluid LDH Fluid Comment Assessment & Plan - Assessment and Plan (Free Text) Assessment: 66 y/o diabetic male with elongated painful dystrophic toenails x 10 Plan: Pt seen and evaluated at bedside Discussed with attending Dr. Bishop Aseptic debridement of toenails x 10 with sterile nippers Pt tolerated procedure without incident Cleansed with alcohol pads Podiatry to sign off at this time Thank you for this consult
[2017-07-11] MEDS: Micafungin 100 MG in Sodium Chloride 0.9% 100 ML IVPB SCH (10:51)
--- NOTE | 2017-07-11 11:08 | CP.CCUPN ---
<Lori Magana - Last Filed: 07/11/17 14:19> CCU Subjective - Physician Review Subjective (Free Text): Patient remains intubated. Following some commands. Somnolent but arousable. Unable to assess mental status- not at baseline. Day # 1 : Right sided chest tube to gravity. 655cc total Day #3: Left sided chest tube to suction. No output overnight. Total 840 cc. ROS: unable to assess, patient intubated. Vital signs, Labs and Imaging reviewed. WBC: 4.6, HG 7.2, PLT: 93 BUN/Cr: 56/2.6 FOBT negative. Antibiotics: 06/22/17: Azithro/Rocephin/Vancomycin x 1 dose 06/23/17: Zosyn x 1 dose 06/25/17: Zyvox - 06/25/17- present (Day 17) 06/26/17: Maxipime 06/26/17- present (Day 16) 07/01/17: Mycamine -07/01/17- present (day 11) Assessment: 66 year old male with PMH of HTN, CKD, nephrotic syndrome, chronic left sided pleural effusion admitted for hypothermia, AMS with acute hypercapnia respiratory failure on 06/22, subsequently developed acute hypoxic respiratory failure, cardiac arrest required intubation on 06/29/17. Patient was extubated on 07/02/17. Patient was intubated on 07/04/17. Remains intubated due to respiratory failure. He has bilateral chest tubes. Left chest tube to suction, right chest tube to gravity. Panyctopenia: leukopenia stable, anemia stable, thrombocytopenia stable with slight increase in platelets. For possible pleurodesis next week. Tolerated CPAP today for about one hour, will try again this afternoon. Patient does not appear as alert, unable to assess mental status but does not appear to be at baseline. #. Acute respiratory failure secondary to HCAP and pleural effusions, improved # Pancytopenia, stable #. 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 Anasarca 2' hypoalbuminemia #. Hypertension #. Hypothyroidism #. NIDDM2 #. DVT/GI Prophylaxis Plan: - Possible pleurodesis next week, continue with cpap throughout the day - Antibiotics continued as per ID - Continue with Keppra for seizures - Await for renal function to stablize then will start Lisinopril - Further management as per primary team Case discussed with Dr. Mata. 07/11/17 11:16 CCU Objective - Vital Signs / Intake & Output Vital Signs (Last 4 hours): Vital Signs Temp Pulse Resp BP Pulse Ox 07/11/17 10:23 156/58 H 07/11/17 10:00 72 156/58 H 99 07/11/17 09:25 82 147/54 L 07/11/17 09:10 80 147/54 L 07/11/17 08:00 98.7 F 72 12 134/51 L 98 Intake and Output (Last 8hrs): Intake & Output 07/10/17 07/11/17 07/11/17 22:59 06:59 14:59 Intake Total 1349 660 400 Output Total 960 700 Balance 389 -40 400 Weight 66.678 kg 0 g Intake: IV 24 Intake, Piggyback 500 300 Tube Feeding 675 360 Free Water Flush 150 300 100 Output: Chest Tube Drainage 360 100 Left Mid-Axillary Chest 10 0 Right Lateral Chest 350 100 Gastric Amount 0 Stomach 0 Urine 600 600 Urethral (Salazar) 600 600 Other: # Bowel Movements 1 1 - Physical Exam Head: Positive for: Atraumatic, Normocephalic Pupils: Positive for: PERRL Conjunctiva: Positive for: Normal. Negative for: Icteric Mouth: Positive for: Moist Mucous Membranes Nose (External): Positive for: Abrasion (Nasal Abrasion-almost healed) Neck: Positive for: Other (central line: left neck in place with dressing, biopatch over line. clean and dry.) Respiratory/Chest: Positive for: Good Air Exchange (on mechancal ventilation), Decreased Breath Sounds (left side) Cardiovascular: Positive for: Regular Rate and Rhythm. Negative for: Tachycardic, Bradycardic Abdomen: Negative for: Tenderness, Distention Genitourinary Male: Positive for: Penile Swelling, Testicle Swelling Upper Extremity: Positive for: Edema (bilateral 2-3+ pitting edema; right > left ) Lower Extremity: Positive for: Normal Inspection. Negative for: Edema, Tenderness Neurological: Positive for: Other (somnolent, arousable, intubated, following commands) Skin: Positive for: Warm, Dry, Other (left hand with open wound dorsum of hand) Psychiatric: Positive for: Other (intubated) - Medications Active Medications: Active Medications Generic Name Dose Route Start Last Admin Trade Name Freq PRN Reason Stop Dose Admin Albuterol/Ipratropium 3 ml 06/28/17 16:00 07/11/17 07:34 Duoneb 3 Mg/0.5 Mg (3 Ml) Ud INH 3 ml RQID [facility] Administration Amlodipine Besylate 10 mg 07/05/17 09:00 07/11/17 09:10 Norvasc PO 10 mg DAILY [facility] Administration Bacitracin 1 applic 07/11/17 09:00 07/11/17 09:04 Bacitracin Oint TOP 1 applic DAILY [facility] Administration Calcium Acetate 2,001 mg 07/05/17 08:30 07/11/17 09:11 Phoslo PO 2,001 mg 0830,1200,1830 [facility] Administration Dextrose 0 ml 06/22/17 22:36 Dextrose 50% Inj IV STAT PRN Hypoglycemia Protocol Protocol Dextrose 0 gm 06/22/17 22:36 Glutose 15 PO ONCE PRN Hypoglycemia Protocol Protocol Enoxaparin Sodium 30 mg 07/02/17 09:00 07/11/17 09:04 Lovenox SC 30 mg DAILY [facility] Administration Protocol Epoetin Roel 14,000 unit 07/07/17 09:00 07/11/17 09:04 Procrit SC 14,000 unit MWF [facility] Administration Glipizide 2.5 mg 07/09/17 16:30 07/11/17 09:10 Glucotrol PO 2.5 mg BIDAC [facility] Administration Glucagon 0 mg 06/22/17 22:36 Glucagen Diagnostic Kit IM STAT PRN Hypoglycemia Protocol Protocol Hydralazine HCl 25 mg 07/02/17 01:00 07/11/17 09:10 Apresoline PO 25 mg Q8 [facility] Administration Cefepime HCl 1 gm/ Sodium 100 mls @ 100 mls/hr 06/26/17 09:00 07/11/17 09:32 Chloride IVPB 100 mls/hr DAILY [facility] Administration Protocol Micafungin Sodium 100 mg/ 100 mls @ 100 mls/hr 07/01/17 13:45 07/11/17 10:51 Sodium Chloride IVPB 100 mls/hr DAILY [facility] Administration Protocol Levetiracetam 500 mg/ Sodium 105 mls @ 210 mls/hr 07/04/17 21:00 01/12/18 08: 57 Chloride IVPB 210 mls/hr Q12 [facility] Administration Insulin Human Lispro 0 units 07/07/17 16:30 07/11/17 06:36 Humalog SC Not Given ACHS [facility] Protocol Levothyroxine Sodium 50 mcg 07/05/17 06:30 07/11/17 06:29 Synthroid PO 50 mcg DAILY@0630 [facility] Administration Metoprolol Tartrate 5 mg 07/03/17 15:24 07/11/17 09:25 Lopressor IVP 5 mg Q6 [facility] Administration Mirtazapine 30 mg 07/10/17 22:00 07/10/17 22:02 Remeron PO 30 mg HS [facility] Administration Pantoprazole Sodium 40 mg 07/08/17 21:00 07/11/17 09:08 Protonix Inj IVP 40 mg Q12 [facility] Administration Sodium Bicarbonate 1,300 mg 06/30/17 17:00 07/02/17 16:23 Sodium Bicarbonate Tab PO 1,300 mg Q8 [facility] Administration Thiamine HCl 100 mg 06/24/17 21:30 07/11/17 09:10 Vitamin B1 Tab PO 100 mg BID THOMAS Administration - Patient Studies Lab Studies: Microbiology Studies 07/08/17 15:54 Gram Stain - Final Pleural Fluid Body Fluid Culture - Preliminary NO GROWTH AFTER 2 DAYS 07/10/17 11:04 Gram Stain - Final Pleural Fluid Lab Studies 07/11/17 07/11/17 07/11/17 Range/Units 10:12 05:34 05:30 WBC (4.8-10.8) K/uL RBC (4.40-5.90) Mil/uL Hgb (12.0-18.0) g/dL Hct (35.0-51.0) % MCV (80.0-94.0) fl MCH (27.0-31.0) pg MCHC (33.0-37.0) g/dL RDW (11.5-14.5) % Plt Count (130-400) K/uL pCO2 42 (35-45) mm/Hg pO2 95 (80-100) mm/Hg HCO3 24.7 (21-28) mmol/L ABG pH 7.38 (7.35-7.45) ABG Total CO2 26.1 (22-28) mmol/L ABG O2 Saturation 100.1 H (95-98) % ABG O2 Content 10.5 L (15-23) ML/dL ABG Base Excess -0.3 (-2.0-3.0) mmol/L ABG Hemoglobin 7.5 L (11.7-17.4) g/dL ABG Carboxyhemoglobin 1.4 (0.5-1.5) % POC ABG HHb (Measured) -0.1 L (0.0-5.0) % ABG Methemoglobin 0.9 (0.0-3.0) % ABG O2 Capacity 10.5 L (16-24) mL/dL Andry Test Yes A-a O2 Difference 66.0 mm/Hg Hgb O2 Saturation 97.9 (95.0-98.0) % Vent Mode Prvc/ac Mechanical Rate 14 FiO2 30.0 % Tidal Volume 400 PEEP 5 Sodium (132-148) mmol/l Potassium (3.6-5.0) MMOL/L Chloride (98-107) mmol/L Carbon Dioxide (22-30) mmol/L Anion Gap (10-20) BUN (9-20) mg/dl Creatinine (0.8-1.5) mg/dl Est GFR ( Amer) Est GFR (Non-Af Amer) POC Glucose (mg/dL) 289 H (65-110) mg/dL Random Glucose (75-110) mg/dL Calcium (8.4-10.2) mg/dL Total Bilirubin (0.2-1.3) mg/dl AST (17-59) U/L ALT (21-72) U/L Alkaline Phosphatase (38-126) U/L Lactate Dehydrogenase 397 (313-618) U/L Total Protein (6.3-8.2) G/DL Albumin (3.5-5.0) g/dL Globulin (2.2-3.9) gm/dL Albumin/Globulin Ratio (1.0-2.1) Fluid Source Fluid Appearance (CLEAR) Fluid pH Fluid WBC (0.0-300.0) /mm3 Fluid RBC (0.0-0.0) /mm3 Fluid Tot Cell Count Fluid Neutrophils (0-0) % Fluid Lymphocytes (0-0) % Fld Monocyte/Macrophag (0-0) % Fluid Glucose (NONE ESTABLISHED) mg/dL Fluid LDH (NONE ESTABLISHED) IU Fluid Comment Crossmatch 07/11/17 07/11/17 07/10/17 Range/Units 05:00 04:55 21:56 WBC 4.6 L (4.8-10.8) K/uL RBC 2.35 L (4.40-5.90) Mil/uL Hgb 7.2 L (12.0-18.0) g/dL Hct 21.9 L (35.0-51.0) % MCV 93.2 (80.0-94.0) fl MCH 30.6 (27.0-31.0) pg MCHC 32.9 L (33.0-37.0) g/dL RDW 15.5 H (11.5-14.5) % Plt Count 93 L (130-400) K/uL pCO2 (35-45) mm/Hg pO2 (80-100) mm/Hg HCO3 (21-28) mmol/L ABG pH (7.35-7.45) ABG Total CO2 (22-28) mmol/L ABG O2 Saturation (95-98) % ABG O2 Content (15-23) ML/dL ABG Base Excess (-2.0-3.0) mmol/L ABG Hemoglobin (11.7-17.4) g/dL ABG Carboxyhemoglobin (0.5-1.5) % POC ABG HHb (Measured) (0.0-5.0) % ABG Methemoglobin (0.0-3.0) % ABG O2 Capacity (16-24) mL/dL Andry Test A-a O2 Difference mm/Hg Hgb O2 Saturation (95.0-98.0) % Vent Mode Mechanical Rate FiO2 % Tidal Volume PEEP Sodium 144 (132-148) mmol/l Potassium 3.6 (3.6-5.0) MMOL/L Chloride 108 H (98-107) mmol/L Carbon Dioxide 27 (22-30) mmol/L Anion Gap 13 (10-20) BUN 56 H (9-20) mg/dl Creatinine 2.6 H (0.8-1.5) mg/dl Est GFR ( Amer) 30 Est GFR (Non-Af Amer) 25 POC Glucose (mg/dL) 202 H (65-110) mg/dL Random Glucose 226 H (75-110) mg/dL Calcium 8.5 (8.4-10.2) mg/dL Total Bilirubin 0.1 L (0.2-1.3) mg/dl AST 20 (17-59) U/L ALT 40 (21-72) U/L Alkaline Phosphatase 165 H D (38-126) U/L Lactate Dehydrogenase (313-618) U/L Total Protein 4.9 L (6.3-8.2) G/DL Albumin 2.4 L (3.5-5.0) g/dL Globulin 2.5 (2.2-3.9) gm/dL Albumin/Globulin Ratio 1.0 (1.0-2.1) Fluid Source Fluid Appearance (CLEAR) Fluid pH Fluid WBC (0.0-300.0) /mm3 Fluid RBC (0.0-0.0) /mm3 Fluid Tot Cell Count Fluid Neutrophils (0-0) % Fluid Lymphocytes (0-0) % Fld Monocyte/Macrophag (0-0) % Fluid Glucose (NONE ESTABLISHED) mg/dL Fluid LDH (NONE ESTABLISHED) IU Fluid Comment Crossmatch 07/10/17 07/10/17 07/10/17 Range/Units 17:00 15:56 11:47 WBC (4.8-10.8) K/uL RBC (4.40-5.90) Mil/uL Hgb (12.0-18.0) g/dL Hct (35.0-51.0) % MCV (80.0-94.0) fl MCH (27.0-31.0) pg MCHC (33.0-37.0) g/dL RDW (11.5-14.5) % Plt Count (130-400) K/uL pCO2 (35-45) mm/Hg pO2 (80-100) mm/Hg HCO3 (21-28) mmol/L ABG pH (7.35-7.45) ABG Total CO2 (22-28) mmol/L ABG O2 Saturation (95-98) % ABG O2 Content (15-23) ML/dL ABG Base Excess (-2.0-3.0) mmol/L ABG Hemoglobin (11.7-17.4) g/dL ABG Carboxyhemoglobin (0.5-1.5) % POC ABG HHb (Measured) (0.0-5.0) % ABG Methemoglobin (0.0-3.0) % ABG O2 Capacity (16-24) mL/dL Andry Test A-a O2 Difference mm/Hg Hgb O2 Saturation (95.0-98.0) % Vent Mode Mechanical Rate FiO2 % Tidal Volume PEEP Sodium (132-148) mmol/l Potassium (3.6-5.0) MMOL/L Chloride (98-107) mmol/L Carbon Dioxide (22-30) mmol/L Anion Gap (10-20) BUN (9-20) mg/dl Creatinine (0.8-1.5) mg/dl Est GFR ( Amer) Est GFR (Non-Af Amer) POC Glucose (mg/dL) 191 H 179 H (65-110) mg/dL Random Glucose (75-110) mg/dL Calcium (8.4-10.2) mg/dL Total Bilirubin (0.2-1.3) mg/dl AST (17-59) U/L ALT (21-72) U/L Alkaline Phosphatase (38-126) U/L Lactate Dehydrogenase (313-618) U/L Total Protein (6.3-8.2) G/DL Albumin (3.5-5.0) g/dL Globulin (2.2-3.9) gm/dL Albumin/Globulin Ratio (1.0-2.1) Fluid Source Fluid Appearance (CLEAR) Fluid pH 8.0 Fluid WBC (0.0-300.0) /mm3 Fluid RBC (0.0-0.0) /mm3 Fluid Tot Cell Count Fluid Neutrophils (0-0) % Fluid Lymphocytes (0-0) % Fld Monocyte/Macrophag (0-0) % Fluid Glucose (NONE ESTABLISHED) mg/dL Fluid LDH (NONE ESTABLISHED) IU Fluid Comment Crossmatch 07/10/17 07/10/17 07/08/17 Range/Units 11:04 11:04 07:45 WBC (4.8-10.8) K/uL RBC (4.40-5.90) Mil/uL Hgb (12.0-18.0) g/dL Hct (35.0-51.0) % MCV (80.0-94.0) fl MCH (27.0-31.0) pg MCHC (33.0-37.0) g/dL RDW (11.5-14.5) % Plt Count (130-400) K/uL pCO2 (35-45) mm/Hg pO2 (80-100) mm/Hg HCO3 (21-28) mmol/L ABG pH (7.35-7.45) ABG Total CO2 (22-28) mmol/L ABG O2 Saturation (95-98) % ABG O2 Content (15-23) ML/dL ABG Base Excess (-2.0-3.0) mmol/L ABG Hemoglobin (11.7-17.4) g/dL ABG Carboxyhemoglobin (0.5-1.5) % POC ABG HHb (Measured) (0.0-5.0) % ABG Methemoglobin (0.0-3.0) % ABG O2 Capacity (16-24) mL/dL Andry Test A-a O2 Difference mm/Hg Hgb O2 Saturation (95.0-98.0) % Vent Mode Mechanical Rate FiO2 % Tidal Volume PEEP Sodium (132-148) mmol/l Potassium (3.6-5.0) MMOL/L Chloride (98-107) mmol/L Carbon Dioxide (22-30) mmol/L Anion Gap (10-20) BUN (9-20) mg/dl Creatinine (0.8-1.5) mg/dl Est GFR ( Amer) Est GFR (Non-Af Amer) POC Glucose (mg/dL) (65-110) mg/dL Random Glucose (75-110) mg/dL Calcium (8.4-10.2) mg/dL Total Bilirubin (0.2-1.3) mg/dl AST (17-59) U/L ALT (21-72) U/L Alkaline Phosphatase (38-126) U/L Lactate Dehydrogenase (313-618) U/L Total Protein (6.3-8.2) G/DL Albumin (3.5-5.0) g/dL Globulin (2.2-3.9) gm/dL Albumin/Globulin Ratio (1.0-2.1) Fluid Source Pleural Fluid Appearance Bloody (CLEAR) Fluid pH Fluid WBC 99.0 (0.0-300.0) /mm3 Fluid RBC 12232.0 H (0.0-0.0) /mm3 Fluid Tot Cell Count TEST NOT PERFORMED Fluid Neutrophils 37.0 H (0-0) % Fluid Lymphocytes 8.0 H (0-0) % Fld Monocyte/Macrophag 5 H (0-0) % Fluid Glucose 145 (NONE ESTABLISHED) mg/dL Fluid LDH 225 (NONE ESTABLISHED) IU Fluid Comment Turbid Crossmatch See Detail Laboratory Results - last 24 hr 07/08/17 07/10/17 07/10/17 07:45 11:04 11:04 WBC RBC Hgb Hct MCV MCH MCHC RDW Plt Count pCO2 pO2 HCO3 ABG pH ABG Total CO2 ABG O2 Saturation ABG O2 Content ABG Base Excess ABG Hemoglobin ABG Carboxyhemoglobin POC ABG HHb (Measured) ABG Methemoglobin ABG O2 Capacity Andry Test A-a O2 Difference Hgb O2 Saturation Vent Mode Mechanical Rate FiO2 Tidal Volume PEEP Sodium Potassium Chloride Carbon Dioxide Anion Gap BUN Creatinine Est GFR ( Amer) Est GFR (Non-Af Amer) POC Glucose (mg/dL) Random Glucose Calcium Total Bilirubin AST ALT Alkaline Phosphatase Lactate Dehydrogenase Total Protein Albumin Globulin Albumin/Globulin Ratio Fluid Source Pleural Fluid Appearance Bloody Fluid pH Fluid WBC 99.0 Fluid RBC 93459.0 H Fluid Tot Cell Count TEST NOT PERFORMED Fluid Neutrophils 37.0 H Fluid Lymphocytes 8.0 H Fld Monocyte/Macrophag 5 H Fluid Glucose 145 Fluid LDH 225 Fluid Comment Turbid Crossmatch See Detail 07/10/17 07/10/17 07/10/17 11:47 15:56 17:00 WBC RBC Hgb Hct MCV MCH MCHC RDW Plt Count pCO2 pO2 HCO3 ABG pH ABG Total CO2 ABG O2 Saturation ABG O2 Content ABG Base Excess ABG Hemoglobin ABG Carboxyhemoglobin POC ABG HHb (Measured) ABG Methemoglobin ABG O2 Capacity Andry Test A-a O2 Difference Hgb O2 Saturation Vent Mode Mechanical Rate FiO2 Tidal Volume PEEP Sodium Potassium Chloride Carbon Dioxide Anion Gap BUN Creatinine Est GFR ( Amer) Est GFR (Non-Af Amer) POC Glucose (mg/dL) 179 H 191 H Random Glucose Calcium Total Bilirubin AST ALT Alkaline Phosphatase Lactate Dehydrogenase Total Protein Albumin Globulin Albumin/Globulin Ratio Fluid Source Fluid Appearance Fluid pH 8.0 Fluid WBC Fluid RBC Fluid Tot Cell Count Fluid Neutrophils Fluid Lymphocytes Fld Monocyte/Macrophag Fluid Glucose Fluid LDH Fluid Comment Crossmatch 07/10/17 07/11/17 07/11/17 21:56 04:55 05:00 WBC 4.6 L RBC 2.35 L Hgb 7.2 L Hct 21.9 L MCV 93.2 MCH 30.6 MCHC 32.9 L RDW 15.5 H Plt Count 93 L pCO2 pO2 HCO3 ABG pH ABG Total CO2 ABG O2 Saturation ABG O2 Content ABG Base Excess ABG Hemoglobin ABG Carboxyhemoglobin POC ABG HHb (Measured) ABG Methemoglobin ABG O2 Capacity Andry Test A-a O2 Difference Hgb O2 Saturation Vent Mode Mechanical Rate FiO2 Tidal Volume PEEP Sodium 144 Potassium 3.6 Chloride 108 H Carbon Dioxide 27 Anion Gap 13 BUN 56 H Creatinine 2.6 H Est GFR ( Amer) 30 Est GFR (Non-Af Amer) 25 POC Glucose (mg/dL) 202 H Random Glucose 226 H Calcium 8.5 Total Bilirubin 0.1 L AST 20 ALT 40 Alkaline Phosphatase 165 H D Lactate Dehydrogenase Total Protein 4.9 L Albumin 2.4 L Globulin 2.5 Albumin/Globulin Ratio 1.0 Fluid Source Fluid Appearance Fluid pH Fluid WBC Fluid RBC Fluid Tot Cell Count Fluid Neutrophils Fluid Lymphocytes Fld Monocyte/Macrophag Fluid Glucose Fluid LDH Fluid Comment Crossmatch 07/11/17 07/11/17 07/11/17 05:30 05:34 10:12 WBC RBC Hgb Hct MCV MCH MCHC RDW Plt Count pCO2 42 pO2 95 HCO3 24.7 ABG pH 7.38 ABG Total CO2 26.1 ABG O2 Saturation 100.1 H ABG O2 Content 10.5 L ABG Base Excess -0.3 ABG Hemoglobin 7.5 L ABG Carboxyhemoglobin 1.4 POC ABG HHb (Measured) -0.1 L ABG Methemoglobin 0.9 ABG O2 Capacity 10.5 L Andry Test Yes A-a O2 Difference 66.0 Hgb O2 Saturation 97.9 Vent Mode Prvc/ac Mechanical Rate 14 FiO2 30.0 Tidal Volume 400 PEEP 5 Sodium Potassium Chloride Carbon Dioxide Anion Gap BUN Creatinine Est GFR ( Amer) Est GFR (Non-Af Amer) POC Glucose (mg/dL) 289 H Random Glucose Calcium Total Bilirubin AST ALT Alkaline Phosphatase Lactate Dehydrogenase 397 Total Protein Albumin Globulin Albumin/Globulin Ratio Fluid Source Fluid Appearance Fluid pH Fluid WBC Fluid RBC Fluid Tot Cell Count Fluid Neutrophils Fluid Lymphocytes Fld Monocyte/Macrophag Fluid Glucose Fluid LDH Fluid Comment Crossmatch Fingerstick Blood Sugar Results: 226 <Ervin Mata - Last Filed: 07/11/17 17:17> CCU Subjective - Physician Review Subjective (Free Text): Attestation: Patient seen and examined at the bedside with Resident Dr. Tita Magana; and I agree with his outline of plans and management documented above as discussed on AM rounds reflecting my review of all applicable clinical data, and participation in the care of the patient throughout the day in ICU; July 11, 2017.
[2017-07-11] MEDS: Linezolid 600 mg in D5W 300 ml 600 MG/300 ML BAG IVPB SCH (11:43)
--- NOTE | 2017-07-11 13:06 | CP.PCM.PN ---
Subjective - Date & Time of Evaluation Date of Evaluation: 07/11/17 Time of Evaluation: 13:02 - Subjective Subjective: pt s/e. Remain intubated on Vent. Hemorrhagic right pleural effusion. cxr-No acute changes. chest rtoj-Bunf-80cl/24hrs. Right-460cc/24 hrs. a/p: For talc pleurodesis on Friday next week. Chest tubes off suction to water seal. Objective - Vital Signs/Intake and Output Vital Signs (last 24 hours): Temp Pulse Resp BP Pulse Ox 98.9 F 76 13 144/58 L 97 07/11/17 12:00 07/11/17 12:00 07/11/17 12:00 07/11/17 12:00 07/11/17 12:00 Intake and Output: 07/11/17 07/11/17 06:59 18:59 Intake Total 1195 400 Output Total 700 Balance 495 400 - Medications Medications: Current Medications Albuterol/Ipratropium (Duoneb 3 Mg/0.5 Mg (3 Ml) Ud) 3 ml INH RQID [facility] Last Admin: 07/11/17 11:18 Dose: 3 ml Amlodipine Besylate (Norvasc) 10 mg PO DAILY [facility] Last Admin: 07/11/17 09:10 Dose: 10 mg Bacitracin (Bacitracin Oint) 1 applic TOP DAILY [facility] Last Admin: 07/11/17 09:04 Dose: 1 applic Calcium Acetate (Phoslo) 2,001 mg PO 0830,1200,1830 [facility] Last Admin: 07/11/17 11:47 Dose: 2,001 mg Dextrose (Dextrose 50% Inj) 0 ml IV STAT PRN; Protocol PRN Reason: Hypoglycemia Protocol Dextrose (Glutose 15) 0 gm PO ONCE PRN; Protocol PRN Reason: Hypoglycemia Protocol Enoxaparin Sodium (Lovenox) 30 mg SC DAILY [facility] PRN Reason: Protocol Last Admin: 07/11/17 09:04 Dose: 30 mg Epoetin Roel (Procrit) 14,000 unit SC MWF [facility] Last Admin: 07/11/17 09:04 Dose: 14,000 unit Glipizide (Glucotrol) 2.5 mg PO BIDAC [facility] Last Admin: 07/11/17 09:10 Dose: 2.5 mg Glucagon (Glucagen Diagnostic Kit) 0 mg IM STAT PRN; Protocol PRN Reason: Hypoglycemia Protocol Hydralazine HCl (Apresoline) 25 mg PO Q8 [facility] Last Admin: 07/11/17 09:10 Dose: 25 mg Cefepime HCl 1 gm/ Sodium (Chloride) 100 mls @ 100 mls/hr IVPB DAILY [facility] PRN Reason: Protocol Last Admin: 07/11/17 09:32 Dose: 100 mls/hr Micafungin Sodium 100 mg/ (Sodium Chloride) 100 mls @ 100 mls/hr IVPB DAILY [facility] PRN Reason: Protocol Last Admin: 07/11/17 10:51 Dose: 100 mls/hr Levetiracetam 500 mg/ Sodium (Chloride) 105 mls @ 210 mls/hr IVPB Q12 [facility] Last Admin: 07/11/17 08:57 Dose: 210 mls/hr Insulin Human Lispro (Humalog) 0 units SC ACHS [facility] PRN Reason: Protocol Last Admin: 07/11/17 11:41 Dose: Not Given Levothyroxine Sodium (Synthroid) 50 mcg PO DAILY@0630 [facility] Last Admin: 07/11/17 06:29 Dose: 50 mcg Metoprolol Tartrate (Lopressor) 5 mg IVP Q6 [facility] Last Admin: 07/11/17 09:25 Dose: 5 mg Mirtazapine (Remeron) 30 mg PO HS [facility] Last Admin: 07/10/17 22:02 Dose: 30 mg Pantoprazole Sodium (Protonix Inj) 40 mg IVP Q12 [facility] Last Admin: 07/11/17 09:08 Dose: 40 mg Sodium Bicarbonate (Sodium Bicarbonate Tab) 1,300 mg PO Q8 [facility] Last Admin: 07/02/17 16:23 Dose: 1,300 mg Thiamine HCl (Vitamin B1 Tab) 100 mg PO BID [facility] Last Admin: 07/11/17 09:10 Dose: 100 mg - Labs Labs: 07/11/17 05:00 07/11/17 04:55 PT 13.4 Seconds (9.8-13.1) H 07/08/17 12:50 INR 1.2 (0.9-1.2) 07/08/17 12:50 APTT 30.8 Seconds (25.6-37.1) 07/08/17 12:50
--- NOTE | 2017-07-11 13:42 | CP.PCM.PN ---
Subjective - Date & Time of Evaluation Date of Evaluation: 07/11/17 Time of Evaluation: 13:42 - Subjective Subjective: CLINICALLY UNCHANGED STILL INTUBATED AND BEING VENTILATED CASE DISCUSSED WITH DR ORTIZ--HE WILL CONSIDER TALC PLEURODYSES NEXT WEEK WILL CONTINUE PRESENT RX Objective - Vital Signs/Intake and Output Vital Signs (last 24 hours): Temp Pulse Resp BP Pulse Ox 98.9 F 76 13 144/58 L 97 07/11/17 12:00 07/11/17 12:00 07/11/17 12:00 07/11/17 12:00 07/11/17 12:00 Intake and Output: 07/11/17 07/11/17 06:59 18:59 Intake Total 1195 400 Output Total 700 Balance 495 400 - Medications Medications: Current Medications Albuterol/Ipratropium (Duoneb 3 Mg/0.5 Mg (3 Ml) Ud) 3 ml INH RQID [facility] Last Admin: 07/11/17 11:18 Dose: 3 ml Amlodipine Besylate (Norvasc) 10 mg PO DAILY [facility] Last Admin: 07/11/17 09:10 Dose: 10 mg Bacitracin (Bacitracin Oint) 1 applic TOP DAILY [facility] Last Admin: 07/11/17 09:04 Dose: 1 applic Calcium Acetate (Phoslo) 2,001 mg PO 0830,1200,1830 [facility] Last Admin: 07/11/17 11:47 Dose: 2,001 mg Dextrose (Dextrose 50% Inj) 0 ml IV STAT PRN; Protocol PRN Reason: Hypoglycemia Protocol Dextrose (Glutose 15) 0 gm PO ONCE PRN; Protocol PRN Reason: Hypoglycemia Protocol Enoxaparin Sodium (Lovenox) 30 mg SC DAILY [facility] PRN Reason: Protocol Last Admin: 07/11/17 09:04 Dose: 30 mg Epoetin Roel (Procrit) 14,000 unit SC MWF [facility] Last Admin: 07/11/17 09:04 Dose: 14,000 unit Glipizide (Glucotrol) 10 mg PO BIDAC [facility] Glucagon (Glucagen Diagnostic Kit) 0 mg IM STAT PRN; Protocol PRN Reason: Hypoglycemia Protocol Hydralazine HCl (Apresoline) 25 mg PO Q8 [facility] Last Admin: 07/11/17 09:10 Dose: 25 mg Cefepime HCl 1 gm/ Sodium (Chloride) 100 mls @ 100 mls/hr IVPB DAILY [facility] PRN Reason: Protocol Last Admin: 07/11/17 09:32 Dose: 100 mls/hr Micafungin Sodium 100 mg/ (Sodium Chloride) 100 mls @ 100 mls/hr IVPB DAILY [facility] PRN Reason: Protocol Last Admin: 07/11/17 10:51 Dose: 100 mls/hr Levetiracetam 500 mg/ Sodium (Chloride) 105 mls @ 210 mls/hr IVPB Q12 [facility] Last Admin: 07/11/17 08:57 Dose: 210 mls/hr Insulin Human Lispro (Humalog) 0 units SC ACHS [facility] PRN Reason: Protocol Last Admin: 07/11/17 11:41 Dose: Not Given Levothyroxine Sodium (Synthroid) 50 mcg PO DAILY@0630 [facility] Last Admin: 07/11/17 06:29 Dose: 50 mcg Metoprolol Tartrate (Lopressor) 5 mg IVP Q6 [facility] Last Admin: 07/11/17 09:25 Dose: 5 mg Mirtazapine (Remeron) 30 mg PO HS [facility] Last Admin: 07/10/17 22:02 Dose: 30 mg Pantoprazole Sodium (Protonix Inj) 40 mg IVP Q12 [facility] Last Admin: 07/11/17 09:08 Dose: 40 mg Sodium Bicarbonate (Sodium Bicarbonate Tab) 1,300 mg PO Q8 [facility] Last Admin: 07/02/17 16:23 Dose: 1,300 mg Thiamine HCl (Vitamin B1 Tab) 100 mg PO BID [facility] Last Admin: 07/11/17 09:10 Dose: 100 mg - Labs Labs: 07/11/17 05:00 07/11/17 04:55 PT 13.4 Seconds (9.8-13.1) H 07/08/17 12:50 INR 1.2 (0.9-1.2) 07/08/17 12:50 APTT 30.8 Seconds (25.6-37.1) 07/08/17 12:50
--- NOTE | 2017-07-11 14:52 | CP.PCM.PN ---
Subjective - Date & Time of Evaluation Date of Evaluation: 07/11/17 Time of Evaluation: 07:00 - Subjective Subjective: opens eyes chest tube in place remains vented NAD Objective - Vital Signs/Intake and Output Vital Signs (last 24 hours): Temp Pulse Resp BP Pulse Ox 98.9 F 76 13 144/58 L 97 07/11/17 12:00 07/11/17 12:00 07/11/17 12:00 07/11/17 12:00 07/11/17 12:00 Intake and Output: 07/11/17 07/11/17 06:59 18:59 Intake Total 1195 400 Output Total 700 Balance 495 400 - Medications Medications: Current Medications Albuterol/Ipratropium (Duoneb 3 Mg/0.5 Mg (3 Ml) Ud) 3 ml INH RQID [facility] Last Admin: 07/11/17 11:18 Dose: 3 ml Amlodipine Besylate (Norvasc) 10 mg PO DAILY [facility] Last Admin: 07/11/17 09:10 Dose: 10 mg Bacitracin (Bacitracin Oint) 1 applic TOP DAILY [facility] Last Admin: 07/11/17 09:04 Dose: 1 applic Calcium Acetate (Phoslo) 2,001 mg PO 0830,1200,1830 [facility] Last Admin: 07/11/17 11:47 Dose: 2,001 mg Dextrose (Dextrose 50% Inj) 0 ml IV STAT PRN; Protocol PRN Reason: Hypoglycemia Protocol Dextrose (Glutose 15) 0 gm PO ONCE PRN; Protocol PRN Reason: Hypoglycemia Protocol Enoxaparin Sodium (Lovenox) 30 mg SC DAILY [facility] PRN Reason: Protocol Last Admin: 07/11/17 09:04 Dose: 30 mg Epoetin Roel (Procrit) 14,000 unit SC MWF [facility] Last Admin: 07/11/17 09:04 Dose: 14,000 unit Glipizide (Glucotrol) 10 mg PO BIDAC [facility] Glucagon (Glucagen Diagnostic Kit) 0 mg IM STAT PRN; Protocol PRN Reason: Hypoglycemia Protocol Hydralazine HCl (Apresoline) 25 mg PO Q8 [facility] Last Admin: 07/11/17 09:10 Dose: 25 mg Cefepime HCl 1 gm/ Sodium (Chloride) 100 mls @ 100 mls/hr IVPB DAILY [facility] PRN Reason: Protocol Last Admin: 07/11/17 09:32 Dose: 100 mls/hr Micafungin Sodium 100 mg/ (Sodium Chloride) 100 mls @ 100 mls/hr IVPB DAILY [facility] PRN Reason: Protocol Last Admin: 07/11/17 10:51 Dose: 100 mls/hr Levetiracetam 500 mg/ Sodium (Chloride) 105 mls @ 210 mls/hr IVPB Q12 [facility] Last Admin: 07/11/17 08:57 Dose: 210 mls/hr Insulin Human Lispro (Humalog) 0 units SC ACHS [facility] PRN Reason: Protocol Last Admin: 07/11/17 11:41 Dose: Not Given Levothyroxine Sodium (Synthroid) 50 mcg PO DAILY@0630 [facility] Last Admin: 07/11/17 06:29 Dose: 50 mcg Metoprolol Tartrate (Lopressor) 5 mg IVP Q6 [facility] Last Admin: 07/11/17 09:25 Dose: 5 mg Mirtazapine (Remeron) 30 mg PO HS [facility] Last Admin: 07/10/17 22:02 Dose: 30 mg Pantoprazole Sodium (Protonix Inj) 40 mg IVP Q12 [facility] Last Admin: 07/11/17 09:08 Dose: 40 mg Sodium Bicarbonate (Sodium Bicarbonate Tab) 1,300 mg PO Q8 [facility] Last Admin: 07/02/17 16:23 Dose: 1,300 mg Thiamine HCl (Vitamin B1 Tab) 100 mg PO BID [facility] Last Admin: 07/11/17 09:10 Dose: 100 mg - Labs Labs: 07/11/17 05:00 07/11/17 04:55 PT 13.4 Seconds (9.8-13.1) H 07/08/17 12:50 INR 1.2 (0.9-1.2) 07/08/17 12:50 APTT 30.8 Seconds (25.6-37.1) 07/08/17 12:50 - Constitutional Appears: Non-toxic, Chronically Ill - Head Exam Head Exam: NORMOCEPHALIC - Eye Exam Eye Exam: PERRL - ENT Exam ENT Exam: Mucous Membranes Dry - Neck Exam Neck Exam: absent: Lymphadenopathy - Respiratory Exam Respiratory Exam: Decreased Breath Sounds - Cardiovascular Exam Cardiovascular Exam: REGULAR RHYTHM - GI/Abdominal Exam GI & Abdominal Exam: Distended, Soft - Rectal Exam Rectal Exam: Deferred - Exam Exam: NORMAL INSPECTION - Extremities Exam Extremities Exam: absent: Pedal Edema - Back Exam Back Exam: absent: CVA tenderness (L), CVA tenderness (R) Assessment and Plan (1) Acute renal failure Status: Acute (2) Altered mental status Status: Acute (3) CHF (congestive heart failure) Status: Acute (4) DM2 (diabetes mellitus, type 2) Status: Acute (5) HCAP (healthcare-associated pneumonia) Status: Acute (6) Pleural effusion Status: Acute (7) SIRS (systemic inflammatory response syndrome) Status: Acute (8) Sepsis Status: Acute (9) Acute kidney injury superimposed on chronic kidney disease Status: Acute (10) Alcohol abuse Status: Acute (11) Anasarca Status: Acute (12) Anemia of renal disease Status: Acute (13) Bilateral lower extremity edema Status: Acute
--- NOTE | 2017-07-11 16:03 | PN ---
DATE: ENDOCRINOLOGY FOLLOWUP NOTE LOCATION: ICU, room 433. SUBJECTIVE: This is a 66-year-old male with recent uncontrolled type 2 diabetes, presenting here with acute respiratory failure and now being followed closely for metabolic management. He remains clinically and biochemically euthyroid with evidence of very early hypothyroidism and superimposed acute sick euthyroid syndrome and the latest thyroid study showed a T4 of 5.58 with a TSH of 5.55 and a free T4 of 0.7. So, at this time, we will continue the low-dose levothyroxine medications given as 50 mcg once daily as ordered. His latest glucose levels have ranged from 222 to 289 mg/dL, which is actually an overnight acceleration as noted thereof. The latest chemistry showed a BUN of 56, sodium 144, potassium 3.6, chloride 108, CO2 of 27, glucose 226, and creatinine 2.6. So, at this time, we will modify once again his oral hypoglycemic therapy and increase the glipizide to 10 mg b.i.d. before meals as ordered. We will consider a second oral hypoglycemic drug therapy as indicated. We will follow. Bettina Mann MD
--- NOTE | 2017-07-11 17:52 | CP.PCM.PN ---
Objective - Vital Signs/Intake and Output Vital Signs (last 24 hours): Temp Pulse Resp BP Pulse Ox 100 F H 87 20 152/52 H 98 07/11/17 16:00 07/11/17 16:02 07/11/17 16:00 07/11/17 16:02 07/11/17 16:00 Intake and Output: 07/11/17 07/11/17 06:59 18:59 Intake Total 1195 870 Output Total 700 Balance 495 870 - Medications Medications: Current Medications Albuterol/Ipratropium (Duoneb 3 Mg/0.5 Mg (3 Ml) Ud) 3 ml INH RQID [facility] Last Admin: 07/11/17 15:38 Dose: 3 ml Amlodipine Besylate (Norvasc) 10 mg PO DAILY [facility] Last Admin: 07/11/17 09:10 Dose: 10 mg Bacitracin (Bacitracin Oint) 1 applic TOP DAILY [facility] Last Admin: 07/11/17 09:04 Dose: 1 applic Calcium Acetate (Phoslo) 2,001 mg PO 0830,1200,1830 [facility] Last Admin: 07/11/17 17:39 Dose: 2,001 mg Dextrose (Dextrose 50% Inj) 0 ml IV STAT PRN; Protocol PRN Reason: Hypoglycemia Protocol Dextrose (Glutose 15) 0 gm PO ONCE PRN; Protocol PRN Reason: Hypoglycemia Protocol Epoetin Roel (Procrit) 14,000 unit SC MWF [facility] Last Admin: 07/11/17 09:04 Dose: 14,000 unit Fluconazole (Diflucan) 200 mg PO DAILY [facility] PRN Reason: Protocol Glipizide (Glucotrol) 10 mg PO BIDAC [facility] Last Admin: 07/11/17 16:36 Dose: 10 mg Glucagon (Glucagen Diagnostic Kit) 0 mg IM STAT PRN; Protocol PRN Reason: Hypoglycemia Protocol Hydralazine HCl (Apresoline) 25 mg PO Q8 [facility] Last Admin: 07/11/17 16:02 Dose: 25 mg Cefepime HCl 1 gm/ Sodium (Chloride) 100 mls @ 100 mls/hr IVPB DAILY [facility] PRN Reason: Protocol Last Admin: 07/11/17 09:32 Dose: 100 mls/hr Levetiracetam 500 mg/ Sodium (Chloride) 105 mls @ 210 mls/hr IVPB Q12 [facility] Last Admin: 07/11/17 08:57 Dose: 210 mls/hr Insulin Human Lispro (Humalog) 0 units SC ACHS [facility] PRN Reason: Protocol Last Admin: 07/11/17 16:46 Dose: Not Given Levothyroxine Sodium (Synthroid) 50 mcg PO DAILY@0630 [facility] Last Admin: 07/11/17 06:29 Dose: 50 mcg Lisinopril (Zestril) 10 mg PO DAILY [facility] Metoprolol Tartrate (Lopressor) 5 mg IVP Q6 [facility] Last Admin: 07/11/17 15:54 Dose: 5 mg Mirtazapine (Remeron) 30 mg PO HS [facility] Last Admin: 07/10/17 22:02 Dose: 30 mg Pantoprazole Sodium (Protonix Inj) 40 mg IVP Q12 [facility] Last Admin: 07/11/17 09:08 Dose: 40 mg Sodium Bicarbonate (Sodium Bicarbonate Tab) 1,300 mg PO Q8 [facility] Last Admin: 07/02/17 16:23 Dose: 1,300 mg Thiamine HCl (Vitamin B1 Tab) 100 mg PO BID [facility] Last Admin: 07/11/17 16:02 Dose: 100 mg - Labs Labs: 07/11/17 05:00 07/11/17 04:55 PT 13.4 Seconds (9.8-13.1) H 07/08/17 12:50 INR 1.2 (0.9-1.2) 07/08/17 12:50 APTT 30.8 Seconds (25.6-37.1) 07/08/17 12:50 Assessment and Plan (1) Acute renal failure Status: Acute (2) Pleural effusion Status: Chronic (3) Nephrotic syndrome Status: Chronic (4) Chronic kidney disease, stage 3 (moderate) Status: Chronic (5) Hypertensive CKD (chronic kidney disease) Status: Acute (6) Hypothermia Status: Acute (7) Altered mental status Status: Acute (8) SIRS (systemic inflammatory response syndrome) Status: Acute (9) Anemia Status: Chronic (10) Monoclonal gammopathy Status: Chronic
[2017-07-12] MEDS: Metoprolol 1 mg/ml Inj IVP SCH ×4 (04:38→21:42)
[2017-07-12] MEDS: Levothyroxine 50 MCG TAB PO SCH (05:44)
[2017-07-12 06:39] LABS: BASO # 0.1 K/uL (0.0-0.2); BASO % 2.3 % (0.0-2.0); EOS # 0.3 K/uL (0.0-0.7); EOS % 7.6 % (0.0-4.0); HEMOGLOBIN 6.6 g/dL (12.0-18.0); LYMPH % 23.4 % (20.0-40.0); MEAN CELL VOLUME 93.7 fl (80.0-94.0); MEAN CORPUSCULAR HEMOGLOBIN 30.7 pg (27.0-31.0); MEAN CORPUSCULAR HGB CONC 32.7 g/dL (33.0-37.0); MEAN PLATELET VOLUME 11.1 fl (7.2-11.7); MONO # 0.2 K/uL (0.0-0.8); MONO % 5.5 % (0.0-10.0); NEUT # 2.5 K/uL (1.8-7.0); NEUT % 61.2 % (50.0-75.0); NRBC % 0.3 % (0.0-0.0); RBC 2.16 Mil/uL (4.40-5.90); RED CELL DISTRIBUTION WIDTH 15.1 % (11.5-14.5); WHITE BLOOD COUNT 4.1 K/uL (4.8-10.8)
[2017-07-12 06:50] LABS: ALB/GLOB RATIO 0.9 (1.0-2.1); ALBUMIN 2.2 g/dL (3.5-5.0); CALCIUM 8.7 mg/dL (8.4-10.2)
[2017-07-12] MEDS: Albuterol-Ipratrop 3 mg / 0.5 (3 ml) UD INH SCH (07:22)
--- NOTE | 2017-07-12 09:37 | CP.PCM.PN ---
Subjective - Date & Time of Evaluation Date of Evaluation: 07/12/17 Time of Evaluation: 08:10 - Subjective Subjective: Patient seen and examined bedside in ICU, intubated day #9. PRVC RR 12, PEEP 5 , FiO2 30%. Patient awake, alert, able to move left hand. B/L chest tube placed , 40 ml right side last 2 hours and and left side no output that last 12 hours..eden urine 200 ml Objective - Vital Signs/Intake and Output Vital Signs (last 24 hours): Temp Pulse Resp BP Pulse Ox 98.5 F 71 12 150/63 99 07/12/17 07:35 07/12/17 07:35 07/12/17 07:35 07/12/17 07:35 07/12/17 07:35 Intake and Output: 07/12/17 07/12/17 06:59 18:59 Intake Total 870 Output Total 40 Balance 830 - Medications Medications: Current Medications Albuterol/Ipratropium (Duoneb 3 Mg/0.5 Mg (3 Ml) Ud) 3 ml INH RQID [facility] Last Admin: 07/12/17 07:22 Dose: 3 ml Amlodipine Besylate (Norvasc) 10 mg PO DAILY [facility] Last Admin: 07/11/17 09:10 Dose: 10 mg Bacitracin (Bacitracin Oint) 1 applic TOP DAILY [facility] Last Admin: 07/11/17 09:04 Dose: 1 applic Calcium Acetate (Phoslo) 2,001 mg PO 0830,1200,1830 [facility] Last Admin: 07/11/17 17:39 Dose: 2,001 mg Dextrose (Dextrose 50% Inj) 0 ml IV STAT PRN; Protocol PRN Reason: Hypoglycemia Protocol Dextrose (Glutose 15) 0 gm PO ONCE PRN; Protocol PRN Reason: Hypoglycemia Protocol Epoetin Roel (Procrit) 14,000 unit SC MWF [facility] Last Admin: 07/11/17 09:04 Dose: 14,000 unit Fluconazole (Diflucan) 200 mg PO DAILY [facility] PRN Reason: Protocol Glipizide (Glucotrol) 10 mg PO BIDAC [facility] Last Admin: 07/11/17 16:36 Dose: 10 mg Glucagon (Glucagen Diagnostic Kit) 0 mg IM STAT PRN; Protocol PRN Reason: Hypoglycemia Protocol Hydralazine HCl (Apresoline) 25 mg PO Q8 [facility] Last Admin: 07/12/17 00:09 Dose: 25 mg Cefepime HCl 1 gm/ Sodium (Chloride) 100 mls @ 100 mls/hr IVPB DAILY [facility] PRN Reason: Protocol Last Admin: 07/11/17 09:32 Dose: 100 mls/hr Levetiracetam 500 mg/ Sodium (Chloride) 105 mls @ 210 mls/hr IVPB Q12 [facility] Last Admin: 07/11/17 21:48 Dose: 210 mls/hr Potassium Chloride (Potassium Cl 10meq/50ml Sterile Water) 50 mls @ 50 mls/hr IVPB Q1 [facility] Stop: 07/12/17 13:59 Insulin Human Lispro (Humalog) 0 units SC Q6H [facility] PRN Reason: Protocol Levothyroxine Sodium (Synthroid) 50 mcg PO DAILY@0630 [facility] Last Admin: 07/12/17 05:44 Dose: 50 mcg Lisinopril (Zestril) 10 mg PO DAILY [facility] Metoprolol Tartrate (Lopressor) 5 mg IVP Q6 [facility] Last Admin: 07/12/17 04:38 Dose: 5 mg Mirtazapine (Remeron) 30 mg PO HS [facility] Last Admin: 07/11/17 21:50 Dose: 30 mg Pantoprazole Sodium (Protonix Inj) 40 mg IVP Q12 [facility] Last Admin: 07/11/17 21:47 Dose: 40 mg Sodium Bicarbonate (Sodium Bicarbonate Tab) 1,300 mg PO Q8 [facility] Last Admin: 07/02/17 16:23 Dose: 1,300 mg Thiamine HCl (Vitamin B1 Tab) 100 mg PO BID [facility] Last Admin: 07/11/17 16:02 Dose: 100 mg - Labs Labs: 07/12/17 06:09 07/12/17 06:09 PT 13.4 Seconds (9.8-13.1) H 07/08/17 12:50 INR 1.2 (0.9-1.2) 07/08/17 12:50 APTT 30.8 Seconds (25.6-37.1) 07/08/17 12:50 - Constitutional Appears: Cachectic, Chronically Ill - Head Exam Head Exam: ATRAUMATIC, NORMOCEPHALIC - Eye Exam Eye Exam: Normal appearance - Neck Exam Neck Exam: Normal Inspection - Respiratory Exam Respiratory Exam: Decreased Breath Sounds. absent: Rales, Rhonchi, Wheezes Additional comments: b/l bibasal. B/L chest tubes. left side triple lumen subclavian catheter. - Cardiovascular Exam Cardiovascular Exam: REGULAR RHYTHM, +S1, +S2 - GI/Abdominal Exam GI & Abdominal Exam: Soft, Normal Bowel Sounds. absent: Tenderness - Exam Additional comments: scrotal swelling - Extremities Exam Extremities Exam: absent: Pedal Edema Additional comments: B/L hands and forearm edema 2+. left hand abrasion with scab formation - Neurological Exam Neurological Exam: Alert, Awake - Skin Additional comments: left hand abrasion with scab formation mild erythema Assessment and Plan - Assessment and Plan (Free Text) Plan: 66 yo M w/ PMHx HTN, DM, CKD IIIB w/ 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, monoclonal gammopathy, recurrent L pleural effusion, admitted for sepsis, Hypothermia, CHINTAN on CKD. Patient is DNR status. Assessment/Plan 1) Acute Respiratory Failure -improving -on ventilator day #9 -sputum cx ross Alb fungus cx. on mycamine day #11 2) Recurrent Left Pleural effusion, Transudate -Pulmonology consult appreciated: no benefit for bronchoscopy or lung biopsy -IR consult appreciated -Cardiothoracic surgery consult appreciated: talk pleurodesis next week - s/p Chest tube placement POD#4 left side no output in 12 h -s/p chest tube placement POD#2 right side 40 ml since last 12 hours -quantiferon gold:indeterminated high -pleural cx prelim no growth 24 hours -mycobact cx prelimi no growth 3) HAP -improved -c/w cefepime day # 17, linezolid day # 18 -Procalcitonin 14.4 trending down 0.7 4) DM nephropathy -Kidney biopsy 06/05/17: Diabetic nephropathy, nodular glomerulosclerosis, associated with aprox 40 % globally sclerosed glomeruli( calss III), 10-15 % segmentally sclerosed glomeruli, docal moderate interstitial fibrosis and mod vascular sclerosis, including marked hyaline arteriolosclerosis.NO EVIDENCE OF MONOCLONAL LIGHT OR HEAVY CHAIN-RELATED RENAL DISEASE. -Nephro consult appreciated: c/w albumin, dilaudid for pain, no morphine, no NSAID. No steroids needed -Renal duplex: no renal vein thrombosis 5) CHINTAN on CKD stage 4 w/ new onset of ATN - Nephorologist consult appreciated -no steroids, no Hd, ARON lisinopril 10 mg when Cr recovers 6) Thrombocytopenia -HemOnc consult appreciated -trending up 93-111 7) Hypothyroidism, subclinical -Econdrinologist consult appreciated -on levothryroxin 8) Hyperprolactinemia -Prolactin trending down -Endocrionologist consult suggested -MRI brain:no inracraneal hemorrhage, chronic lacunar infarct b/l cerebral, changes in dali haydee represent chronic ischemia or sequela of osmotic myelonilolysis not excluded.chronic b/l basal nuclei lacunar infarcts, mastoid ppasification secondary to intubation 9) Pressure Ulcer and TDI -resolved 10) pEF CHF -Echo 05/31/17 normal EF 60-65% -c/w labetalol, hydralazine 11) DM 2 -SSI 12) HTN - Hydralazine 25 Q8. To keep systolic BP 150 - Labetalol 5m IV PRN 13) Anemia -secondary to CKD -s/p transfucion 1 u pRBC -Hgb 6.6 today. f/u CBC -C/W procrit 14) DVT prophylaxis -Lovenox 30 mg sc (renal dose) 15) GI prophylaxis -Pantoprazol 40 mg IV
--- NOTE | 2017-07-12 09:50 | CP.CCUPN ---
CCU Subjective - Physician Review Subjective (Free Text): Events overnight reviewed. chest tube output recorded in electronic chart. Vitals reviewed. Critical Care Time Spent (in minutes): 45 CCU Objective - Vital Signs / Intake & Output Vital Signs (Last 4 hours): Vital Signs Temp Pulse Resp BP Pulse Ox 07/12/17 07:35 98.5 F 71 12 150/63 99 07/12/17 06:00 70 22 135/55 L 97 Intake and Output (Last 8hrs): Intake & Output 07/11/17 07/12/17 07/12/17 22:59 06:59 14:59 Intake Total 920 660 Output Total 1200 40 Balance -280 620 Intake: Intake, Piggyback 20 Tube Feeding 720 360 Free Water Flush 180 300 Output: Chest Tube Drainage 100 40 Left Mid-Axillary Chest 0 Right Lateral Chest 100 40 Urine 1100 Urethral (Salazar) 1100 Other: # Bowel Movements 1 - Physical Exam Head: Positive for: Atraumatic, Normocephalic Pupils: Positive for: PERRL Conjunctiva: Positive for: Normal. Negative for: Icteric Mouth: Positive for: Moist Mucous Membranes, Other (ET tube) Nose (External): Positive for: Abrasion (Nasal Abrasion-almost healed) Neck: Positive for: Other (central line: left neck in place with dressing, biopatch over line. clean and dry.) Respiratory/Chest: Positive for: Good Air Exchange (on mechancal ventilation), Decreased Breath Sounds (left side) Cardiovascular: Positive for: Regular Rate and Rhythm, Normal S1, S2. Negative for: Tachycardic, Bradycardic Abdomen: Negative for: Tenderness, Distention Genitourinary Male: Positive for: Penile Swelling, Testicle Swelling Upper Extremity: Positive for: Edema (bilateral 2-3+ pitting edema; right > left ) Lower Extremity: Positive for: Normal Inspection. Negative for: Edema, Tenderness Neurological: Positive for: Other (somnolent, arousable, intubated, following commands) Skin: Positive for: Warm, Dry, Other (left hand with open wound dorsum of hand) Psychiatric: Positive for: Other (intubated) - Medications Active Medications: Active Medications Generic Name Dose Route Start Last Admin Trade Name Freq PRN Reason Stop Dose Admin Albuterol/Ipratropium 3 ml 06/28/17 16:00 07/12/17 07:22 Duoneb 3 Mg/0.5 Mg (3 Ml) Ud INH 3 ml RQID [facility] Administration Amlodipine Besylate 10 mg 07/05/17 09:00 07/11/17 09:10 Norvasc PO 10 mg DAILY [facility] Administration Bacitracin 1 applic 07/11/17 09:00 07/11/17 09:04 Bacitracin Oint TOP 1 applic DAILY [facility] Administration Calcium Acetate 2,001 mg 07/05/17 08:30 07/11/17 17:39 Phoslo PO 2,001 mg 0830,1200,1830 [facility] Administration Dextrose 0 ml 06/22/17 22:36 Dextrose 50% Inj IV STAT PRN Hypoglycemia Protocol Protocol Dextrose 0 gm 06/22/17 22:36 Glutose 15 PO ONCE PRN Hypoglycemia Protocol Protocol Epoetin Roel 14,000 unit 07/07/17 09:00 07/11/17 09:04 Procrit SC 14,000 unit MWF [facility] Administration Fluconazole 200 mg 07/12/17 09:00 Diflucan PO DAILY [facility] Protocol Glipizide 10 mg 07/11/17 16:30 07/11/17 16:36 Glucotrol PO 10 mg BIDAC [facility] Administration Glucagon 0 mg 06/22/17 22:36 Glucagen Diagnostic Kit IM STAT PRN Hypoglycemia Protocol Protocol Hydralazine HCl 25 mg 07/02/17 01:00 07/12/17 00:09 Apresoline PO 25 mg Q8 [facility] Administration Cefepime HCl 1 gm/ Sodium 100 mls @ 100 mls/hr 06/26/17 09:00 07/11/17 09:32 Chloride IVPB 100 mls/hr DAILY [facility] Administration Protocol Levetiracetam 500 mg/ Sodium 105 mls @ 210 mls/hr 07/04/17 21:00 07/11/17 21: 48 Chloride IVPB 210 mls/hr Q12 [facility] Administration Potassium Chloride 50 mls @ 50 mls/hr 07/12/17 10:00 Potassium Cl 10meq/50ml Sterile Water IVPB 07/12/17 13:59 Q1 [facility] Insulin Human Lispro 0 units 07/12/17 09:45 Humalog SC Q6H [facility] Protocol Levothyroxine Sodium 50 mcg 07/05/17 06:30 07/12/17 05:44 Synthroid PO 50 mcg DAILY@0630 [facility] Administration Lisinopril 10 mg 07/12/17 09:00 Zestril PO DAILY [facility] Metoprolol Tartrate 5 mg 07/03/17 15:24 07/12/17 04:38 Lopressor IVP 5 mg Q6 [facility] Administration Mirtazapine 30 mg 07/10/17 22:00 07/11/17 21:50 Remeron PO 30 mg HS [facility]OM[facility] Administration Pantoprazole Sodium 40 mg 07/08/17 21:00 07/11/17 21:47 Protonix Inj IVP 40 mg Q12 [facility] Administration Sodium Bicarbonate 1,300 mg 06/30/17 17:00 07/02/17 16:23 Sodium Bicarbonate Tab PO 1,300 mg Q8 [facility] Administration Thiamine HCl 100 mg 06/24/17 21:30 07/11/17 16:02 Vitamin B1 Tab PO 100 mg BID THOMAS Administration - Patient Studies Lab Studies: Microbiology Studies 06/25/17 16:51 Mycobacterial Culture - Preliminary Other: Please Indicate 07/10/17 11:04 Gram Stain - Final Pleural Fluid Body Fluid Culture - Preliminary NO GROWTH AFTER 24 HOURS 07/08/17 15:54 Gram Stain - Final Pleural Fluid Body Fluid Culture - Preliminary NO GROWTH AFTER 2 DAYS Lab Studies 07/12/17 07/12/17 07/12/17 Range/Units 06:09 06:09 05:46 WBC 4.1 L (4.8-10.8) K/uL RBC 2.16 L (4.40-5.90) Mil/uL Hgb 6.6 L (12.0-18.0) g/dL Hct 20.3 L (35.0-51.0) % MCV 93.7 (80.0-94.0) fl MCH 30.7 (27.0-31.0) pg MCHC 32.7 L (33.0-37.0) g/dL RDW 15.1 H (11.5-14.5) % Plt Count 111 L (130-400) K/uL MPV 11.1 (7.2-11.7) fl Neut % (Auto) 61.2 (50.0-75.0) % Lymph % (Auto) 23.4 (20.0-40.0) % Wake % (Auto) 5.5 (0.0-10.0) % Eos % (Auto) 7.6 H (0.0-4.0) % Baso % (Auto) 2.3 H (0.0-2.0) % Neut # 2.5 (1.8-7.0) K/uL Lymph # 1.0 (1.0-4.3) K/uL Wake # 0.2 (0.0-0.8) K/uL Eos # 0.3 (0.0-0.7) K/uL Baso # 0.1 (0.0-0.2) K/uL Sodium 143 (132-148) mmol/l Potassium 3.2 L (3.6-5.0) MMOL/L Chloride 111 H (98-107) mmol/L Carbon Dioxide 26 (22-30) mmol/L Anion Gap 9 L (10-20) BUN 50 H (9-20) mg/dl Creatinine 2.5 H (0.8-1.5) mg/dl Est GFR ( Amer) 31 Est GFR (Non-Af Amer) 26 POC Glucose (mg/dL) 114 H (65-110) mg/dL Random Glucose 111 H (75-110) mg/dL Calcium 8.7 (8.4-10.2) mg/dL Total Bilirubin 0.2 (0.2-1.3) mg/dl AST 15 L D (17-59) U/L ALT 33 (21-72) U/L Alkaline Phosphatase 149 H (38-126) U/L Lactate Dehydrogenase (313-618) U/L Total Protein 4.7 L (6.3-8.2) G/DL Albumin 2.2 L (3.5-5.0) g/dL Globulin 2.5 (2.2-3.9) gm/dL Albumin/Globulin Ratio 0.9 L (1.0-2.1) C. difficile Ag & Toxin (NEGATIVE) Crossmatch 07/11/17 07/11/17 07/11/17 Range/Units 21:53 16:35 11:00 WBC (4.8-10.8) K/uL RBC (4.40-5.90) Mil/uL Hgb (12.0-18.0) g/dL Hct (35.0-51.0) % MCV (80.0-94.0) fl MCH (27.0-31.0) pg MCHC (33.0-37.0) g/dL RDW (11.5-14.5) % Plt Count (130-400) K/uL MPV (7.2-11.7) fl Neut % (Auto) (50.0-75.0) % Lymph % (Auto) (20.0-40.0) % Wake % (Auto) (0.0-10.0) % Eos % (Auto) (0.0-4.0) % Baso % (Auto) (0.0-2.0) % Neut # (1.8-7.0) K/uL Lymph # (1.0-4.3) K/uL Wake # (0.0-0.8) K/uL Eos # (0.0-0.7) K/uL Baso # (0.0-0.2) K/uL Sodium (132-148) mmol/l Potassium (3.6-5.0) MMOL/L Chloride (98-107) mmol/L Carbon Dioxide (22-30) mmol/L Anion Gap (10-20) BUN (9-20) mg/dl Creatinine (0.8-1.5) mg/dl Est GFR ( Amer) Est GFR (Non-Af Amer) POC Glucose (mg/dL) 140 H 220 H 209 H (65-110) mg/dL Random Glucose (75-110) mg/dL Calcium (8.4-10.2) mg/dL Total Bilirubin (0.2-1.3) mg/dl AST (17-59) U/L ALT (21-72) U/L Alkaline Phosphatase (38-126) U/L Lactate Dehydrogenase (313-618) U/L Total Protein (6.3-8.2) G/DL Albumin (3.5-5.0) g/dL Globulin (2.2-3.9) gm/dL Albumin/Globulin Ratio (1.0-2.1) C. difficile Ag & Toxin (NEGATIVE) Crossmatch 07/11/17 07/10/17 07/08/17 Range/Units 10:12 08:25 07:45 WBC (4.8-10.8) K/uL RBC (4.40-5.90) Mil/uL Hgb (12.0-18.0) g/dL Hct (35.0-51.0) % MCV (80.0-94.0) fl MCH (27.0-31.0) pg MCHC (33.0-37.0) g/dL RDW (11.5-14.5) % Plt Count (130-400) K/uL MPV (7.2-11.7) fl Neut % (Auto) (50.0-75.0) % Lymph % (Auto) (20.0-40.0) % Wake % (Auto) (0.0-10.0) % Eos % (Auto) (0.0-4.0) % Baso % (Auto) (0.0-2.0) % Neut # (1.8-7.0) K/uL Lymph # (1.0-4.3) K/uL Wake # (0.0-0.8) K/uL Eos # (0.0-0.7) K/uL Baso # (0.0-0.2) K/uL Sodium (132-148) mmol/l Potassium (3.6-5.0) MMOL/L Chloride (98-107) mmol/L Carbon Dioxide (22-30) mmol/L Anion Gap (10-20) BUN (9-20) mg/dl Creatinine (0.8-1.5) mg/dl Est GFR ( Amer) Est GFR (Non-Af Amer) POC Glucose (mg/dL) (65-110) mg/dL Random Glucose (75-110) mg/dL Calcium (8.4-10.2) mg/dL Total Bilirubin (0.2-1.3) mg/dl AST (17-59) U/L ALT (21-72) U/L Alkaline Phosphatase (38-126) U/L Lactate Dehydrogenase 397 (313-618) U/L Total Protein (6.3-8.2) G/DL Albumin (3.5-5.0) g/dL Globulin (2.2-3.9) gm/dL Albumin/Globulin Ratio (1.0-2.1) C. difficile Ag & Toxin Negative (NEGATIVE) Crossmatch See Detail Laboratory Results - last 24 hr 07/08/17 07/10/17 07/11/17 07:45 08:25 10:12 WBC RBC Hgb Hct MCV MCH MCHC RDW Plt Count MPV Neut % (Auto) Lymph % (Auto) Wake % (Auto) Eos % (Auto) Baso % (Auto) Neut # Lymph # Wake # Eos # Baso # Sodium Potassium Chloride Carbon Dioxide Anion Gap BUN Creatinine Est GFR ( Amer) Est GFR (Non-Af Amer) POC Glucose (mg/dL) Random Glucose Calcium Total Bilirubin AST ALT Alkaline Phosphatase Lactate Dehydrogenase 397 Total Protein Albumin Globulin Albumin/Globulin Ratio C. difficile Ag & Toxin Negative Crossmatch See Detail 07/11/17 07/11/17 07/11/17 11:00 16:35 21:53 WBC RBC Hgb Hct MCV MCH MCHC RDW Plt Count MPV Neut % (Auto) Lymph % (Auto) Wake % (Auto) Eos % (Auto) Baso % (Auto) Neut # Lymph # Wake # Eos # Baso # Sodium Potassium Chloride Carbon Dioxide Anion Gap BUN Creatinine Est GFR ( Amer) Est GFR (Non-Af Amer) POC Glucose (mg/dL) 209 H 220 H 140 H Random Glucose Calcium Total Bilirubin AST ALT Alkaline Phosphatase Lactate Dehydrogenase Total Protein Albumin Globulin Albumin/Globulin Ratio C. difficile Ag & Toxin Crossmatch 07/12/17 07/12/17 07/12/17 05:46 06:09 06:09 WBC 4.1 L RBC 2.16 L Hgb 6.6 L Hct 20.3 L MCV 93.7 MCH 30.7 MCHC 32.7 L RDW 15.1 H Plt Count 111 L MPV 11.1 Neut % (Auto) 61.2 Lymph % (Auto) 23.4 Wake % (Auto) 5.5 Eos % (Auto) 7.6 H Baso % (Auto) 2.3 H Neut # 2.5 Lymph # 1.0 Wake # 0.2 Eos # 0.3 Baso # 0.1 Sodium 143 Potassium 3.2 L Chloride 111 H Carbon Dioxide 26 Anion Gap 9 L BUN 50 H Creatinine 2.5 H Est GFR ( Amer) 31 Est GFR (Non-Af Amer) 26 POC Glucose (mg/dL) 114 H Random Glucose 111 H Calcium 8.7 Total Bilirubin 0.2 AST 15 L D ALT 33 Alkaline Phosphatase 149 H Lactate Dehydrogenase Total Protein 4.7 L Albumin 2.2 L Globulin 2.5 Albumin/Globulin Ratio 0.9 L C. difficile Ag & Toxin Crossmatch Fingerstick Blood Sugar Results: 114 Critical Care Progress Note - Ventilator Checklist Daily Sedation Vacation: Yes Daily Assessment of Readiness to Wean: Yes Daily Spontaneous Breathing Trial: Yes PUD Prophalyxis: Yes DVT Prophylaxis: Yes Oral Care with Chlorhexidine Gluconate {CHG}: Yes Assessment/Plan - Assessment and Plan (Free Text) Plan: 66 yo M w/ pmh of htn, dm, CKD, w/ 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, monoclonal gammopathy, recurrent L pleural effusion, admitted with hypothermia, CHINTAN -Hypoxic respiratory failure: Continue ventilation to keep sPO2 >92 and pH b/w 7.35-7.45, continue bronchodialtors, CPAP trial set today -s/p cardiac arrest: off pressors, awake, not following commands -b/l chest tube, if chest tube output <100 consider talc infusion for pleurodesis -COPD: continue bronchodilators, no wheezing, peak presure 20 -CKD stage III-IV; exact etiology unknown, nephrology follow up, continue as per nephrology -AMS: not on sedation while on ventilator, opens eyes, but not able to move upper extremities, possible underlying anoxic brain injury -Sepsis: RLL infiltrate, continue abx as per ID, f/u sputum culture and de- escalate -Chronic diastolic heart failure: continue current heart medications - DM 2, BGM q6hrs, ISS -Anemia of chronic disease + acute blood loss anemia: continue EPA, infuse 1 unit of blood to kep hb >8 -continue dvt/pud ppx: protonix/scds -continue tube feeds to avoid malnutrition -replace electrolytes -Patient tolerating CPAP, RSBI ~80-90 Cc time 45 minutes - Date & Time Date: 07/12/17 Time: 10:02
[2017-07-12 09:51] LABS: ABG ALLEN TEST YES; ARTERIAL BLOOD GAS HCO3 26.5 mmol/L (21-28); ARTERIAL BLOOD GAS O2 SAT 99.2 % (95-98); ARTERIAL BLOOD GAS PCO2 44 mm/Hg (35-45); ARTERIAL BLOOD GAS PO2 96 mm/Hg (80-100); ARTERIAL BLOOD GAS TCO2 28.7 mmol/L (22-28)
[2017-07-12] MEDS ORDERED: Potassium CL 10 MEQ/50 ML 50 ML IVPB SCH (10:00)
[2017-07-12] MEDS: Bacitracin OINT 15GM TOP SCH (10:02)
[2017-07-12] MEDS: Insulin Lispro (humaLOG) 100 Units/ml Inj SC SCH ×3 (10:04→21:46)
[2017-07-12] MEDS: Cefepime 1 GM in Sodium Chloride 0.9% 100 ML IVPB SCH (10:05)
[2017-07-12] MEDS: levETIRAcetam 500 MG in Sodium Chloride 0.9% 100 ML IVPB SCH ×2 (10:06→21:41)
--- NOTE | 2017-07-12 11:00 | CP.PCM.PN ---
Subjective - Date & Time of Evaluation Date of Evaluation: 07/12/17 Time of Evaluation: 10:58 - Subjective Subjective: 66 yo M w/ pmh of htn, dm, CKD IIIB w/ nephrotic syndrome (secondary to DM nephropathy), recurrent L pleural effusion, initially admitted with hypothermia , CHINTAN, recurrent pleural effusion; now s/p b/l chest tube placement; Patient alert, still intubated; denies any pain; no overt source of bleed reported; Objective - Vital Signs/Intake and Output Vital Signs (last 24 hours): Temp Pulse Resp BP Pulse Ox 98.5 F 75 12 153/63 H 99 07/12/17 07:35 07/12/17 10:08 07/12/17 07:35 07/12/17 10:08 07/12/17 07:35 Intake and Output: 07/12/17 07/12/17 06:59 18:59 Intake Total 870 Output Total 40 Balance 830 - Medications Medications: Current Medications Albuterol/Ipratropium (Duoneb 3 Mg/0.5 Mg (3 Ml) Ud) 3 ml INH RQID [facility] Last Admin: 07/12/17 07:22 Dose: 3 ml Amlodipine Besylate (Norvasc) 10 mg PO DAILY [facility] Last Admin: 07/12/17 10:07 Dose: 10 mg Bacitracin (Bacitracin Oint) 1 applic TOP DAILY [facility] Last Admin: 07/12/17 10:02 Dose: 1 applic Calcium Acetate (Phoslo) 2,001 mg PO 0830,1200,1830 [facility] Last Admin: 07/12/17 10:07 Dose: 2,001 mg Dextrose (Dextrose 50% Inj) 0 ml IV STAT PRN; Protocol PRN Reason: Hypoglycemia Protocol Dextrose (Glutose 15) 0 gm PO ONCE PRN; Protocol PRN Reason: Hypoglycemia Protocol Epoetin Roel (Procrit) 14,000 unit SC MWF [facility] Last Admin: 07/11/17 09:04 Dose: 14,000 unit Fluconazole (Diflucan) 200 mg PO DAILY [facility] PRN Reason: Protocol Last Admin: 07/12/17 10:02 Dose: 200 mg Glipizide (Glucotrol) 10 mg PO BIDAC [facility] Last Admin: 07/12/17 10:03 Dose: 10 mg Glucagon (Glucagen Diagnostic Kit) 0 mg IM STAT PRN; Protocol PRN Reason: Hypoglycemia Protocol Hydralazine HCl (Apresoline) 25 mg PO Q8 [facility] Last Admin: 07/12/17 10:01 Dose: 25 mg Cefepime HCl 1 gm/ Sodium (Chloride) 100 mls @ 100 mls/hr IVPB DAILY [facility] PRN Reason: Protocol Last Admin: 07/12/17 10:05 Dose: 100 mls/hr Levetiracetam 500 mg/ Sodium (Chloride) 105 mls @ 210 mls/hr IVPB Q12 [facility] Last Admin: 07/12/17 10:06 Dose: 210 mls/hr Potassium Chloride 10 meq/ (Sodium Chloride) 55 mls @ 55 mls/hr IV Q1 [facility] Stop: 07/12/17 14:59 Insulin Human Lispro (Humalog) 0 units SC Q6H [facility] PRN Reason: Protocol Last Admin: 07/12/17 10:04 Dose: Not Given Levothyroxine Sodium (Synthroid) 50 mcg PO DAILY@0630 [facility] Last Admin: 07/12/17 05:44 Dose: 50 mcg Lisinopril (Zestril) 10 mg PO DAILY [facility] Last Admin: 07/12/17 10:08 Dose: 10 mg Metoprolol Tartrate (Lopressor) 5 mg IVP Q6 [facility] Last Admin: 07/12/17 10:04 Dose: 5 mg Mirtazapine (Remeron) 30 mg PO HS [facility] Last Admin: 07/11/17 21:50 Dose: 30 mg Pantoprazole Sodium (Protonix Inj) 40 mg IVP Q12 [facility] Last Admin: 07/12/17 10:08 Dose: 40 mg Sodium Bicarbonate (Sodium Bicarbonate Tab) 1,300 mg PO Q8 [facility] Last Admin: 07/02/17 16:23 Dose: 1,300 mg Thiamine HCl (Vitamin B1 Tab) 100 mg PO BID [facility] Last Admin: 07/12/17 10:08 Dose: 100 mg - Labs Labs: 07/12/17 06:09 07/12/17 06:09 PT 13.4 Seconds (9.8-13.1) H 07/08/17 12:50 INR 1.2 (0.9-1.2) 07/08/17 12:50 APTT 30.8 Seconds (25.6-37.1) 07/08/17 12:50 - Constitutional Appears: No Acute Distress, Chronically Ill - Eye Exam Eye Exam: absent: Scleral icterus - ENT Exam ENT Exam: Mucous Membranes Moist - Respiratory Exam Respiratory Exam: Clear to Ausculation Bilateral. absent: Respiratory Distress - Cardiovascular Exam Cardiovascular Exam: RRR, +S1, +S2 - GI/Abdominal Exam GI & Abdominal Exam: Soft. absent: Distended, Tenderness - Extremities Exam Additional comments: markedly edematous dependent areas; - Neurological Exam Neurological Exam: Alert, Awake Additional comments: following commands; - Psychiatric Exam Psychiatric exam: absent: Agitated - Skin Skin Exam: Warm. absent: Cyanosis Assessment and Plan (1) Acute renal failure Assessment & Plan: CHINTAN on CKD; ATN, resolving; non-oliguric; relatively stable electrolyte status ( mild hyopkalemia noted) and FIO2 requirement; renal function not yet at baseline (creat ~ 2 on previous admission) but expect overall progression of CKD with underlying DM nephropathy and multiple ATN insults; -agree with prbc transfusion as this will aid intravascular oncotic pressure; -avoid dropping BP, should aim for SBP in 150's; Status: Acute (2) Pleural effusion Assessment & Plan: s/p b/l chest tubes placed this week for chronic effusions; L always consistent with transudate but R effusion bloody (awaiting cytology); in setting of severe nephrotic syndrome, our goal will be to titrate upward KEVIN blockade and eventually start on an adequate diuretic regimen; Status: Chronic (3) Nephrotic syndrome Assessment & Plan: 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; starting lisinopril 10 mg daily today and titrating upward; director long 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 care may benefit from ACTH gel (acthar) but likely will not be able to procure due to cost; Status: Chronic (4) Chronic kidney disease, stage 3 (moderate) Status: Chronic (5) Hypertensive CKD (chronic kidney disease) Assessment & Plan: BP control fluctuating; aiming for SBP in 150's, continue current regimen; lasix 40 mg IV prn Status: Acute (6) Hypothermia Status: Acute (7) Altered mental status Status: Acute (8) SIRS (systemic inflammatory response syndrome) Status: Acute (9) Anemia Assessment & Plan: Hgb again dropping; getting 1 u prbc transfusion; continue EPO 14,000 u qMWF, will likely increase dose in a week; Status: Chronic (10) Monoclonal gammopathy Status: Chronic
--- NOTE | 2017-07-12 12:31 | CP.PCM.PN ---
Subjective - Date & Time of Evaluation Date of Evaluation: 07/12/17 Time of Evaluation: 12:29 - Subjective Subjective: CT Sx: Dr Gannon Pt S&E. IAN. Intubated and sedated. B/L chest tubes on water seal with negligble output. No ptx evident on todays CXR Objective - Vital Signs/Intake and Output Vital Signs (last 24 hours): Temp Pulse Resp BP Pulse Ox 98.5 F 75 15 153/63 H 95 07/12/17 07:35 07/12/17 10:08 07/12/17 10:00 07/12/17 10:08 07/12/17 10:00 Intake and Output: 07/12/17 07/12/17 06:59 18:59 Intake Total 870 Output Total 40 Balance 830 - Medications Medications: Current Medications Amlodipine Besylate (Norvasc) 10 mg PO DAILY [facility] Last Admin: 07/12/17 10:07 Dose: 10 mg Bacitracin (Bacitracin Oint) 1 applic TOP DAILY [facility] Last Admin: 07/12/17 10:02 Dose: 1 applic Calcium Acetate (Phoslo) 2,001 mg PO 0830,1200,1830 [facility] Last Admin: 07/12/17 10:07 Dose: 2,001 mg Dextrose (Dextrose 50% Inj) 0 ml IV STAT PRN; Protocol PRN Reason: Hypoglycemia Protocol Dextrose (Glutose 15) 0 gm PO ONCE PRN; Protocol PRN Reason: Hypoglycemia Protocol Epoetin Roel (Procrit) 14,000 unit SC MWF [facility] Last Admin: 07/11/17 09:04 Dose: 14,000 unit Fluconazole (Diflucan) 200 mg PO DAILY [facility] PRN Reason: Protocol Last Admin: 07/12/17 10:02 Dose: 200 mg Glipizide (Glucotrol) 10 mg PO BIDAC [facility] Last Admin: 07/12/17 10:03 Dose: 10 mg Glucagon (Glucagen Diagnostic Kit) 0 mg IM STAT PRN; Protocol PRN Reason: Hypoglycemia Protocol Hydralazine HCl (Apresoline) 25 mg PO Q8 [facility] Last Admin: 07/12/17 10:01 Dose: 25 mg Cefepime HCl 1 gm/ Sodium (Chloride) 100 mls @ 100 mls/hr IVPB DAILY [facility] PRN Reason: Protocol Last Admin: 07/12/17 10:05 Dose: 100 mls/hr Levetiracetam 500 mg/ Sodium (Chloride) 105 mls @ 210 mls/hr IVPB Q12 [facility] Last Admin: 07/12/17 10:06 Dose: 210 mls/hr Potassium Chloride 10 meq/ (Sodium Chloride) 55 mls @ 55 mls/hr IV Q1 [facility] Stop: 07/12/17 14:59 Last Admin: 07/12/17 10:55 Dose: 55 mls/hr Insulin Human Lispro (Humalog) 0 units SC Q6H [facility] PRN Reason: Protocol Last Admin: 07/12/17 10:04 Dose: Not Given Levothyroxine Sodium (Synthroid) 50 mcg PO DAILY@0630 [facility] Last Admin: 07/12/17 05:44 Dose: 50 mcg Lisinopril (Zestril) 10 mg PO DAILY [facility] Last Admin: 07/12/17 10:08 Dose: 10 mg Metoprolol Tartrate (Lopressor) 5 mg IVP Q6 [facility] Last Admin: 07/12/17 10:04 Dose: 5 mg Mirtazapine (Remeron) 30 mg PO HS [facility] Last Admin: 07/11/17 21:50 Dose: 30 mg Pantoprazole Sodium (Protonix Inj) 40 mg IVP Q12 [facility] Last Admin: 07/12/17 10:08 Dose: 40 mg Sodium Bicarbonate (Sodium Bicarbonate Tab) 1,300 mg PO Q8 [facility] Last Admin: 07/02/17 16:23 Dose: 1,300 mg Thiamine HCl (Vitamin B1 Tab) 100 mg PO BID [facility] Last Admin: 07/12/17 10:08 Dose: 100 mg - Labs Labs: 07/12/17 06:09 07/12/17 06:09 PT 13.4 Seconds (9.8-13.1) H 07/08/17 12:50 INR 1.2 (0.9-1.2) 07/08/17 12:50 APTT 30.8 Seconds (25.6-37.1) 07/08/17 12:50 - Constitutional Appears: Chronically Ill - ENT Exam ENT Exam: Mucous Membranes Moist - Respiratory Exam Respiratory Exam: absent: Accessory Muscle Use, Respiratory Distress - Cardiovascular Exam Cardiovascular Exam: REGULAR RHYTHM - GI/Abdominal Exam GI & Abdominal Exam: Soft. absent: Distended Assessment and Plan - Assessment and Plan (Free Text) Assessment: 66M with b/l chest tubes, respiratory failure, s/p cardiac arrest with nephrotic syndrome Plan: cont chest tubes to water seal daily cxr further mgmt per ICU potential for talc pleurodesis in future if pt is stabilized (chronic anemia from unknown source??) will d/w Dr Jagdeep Wagner, PGY3
--- NOTE | 2017-07-12 13:13 | PN ---
DATE: ENDOCRINOLOGY FOLLOWUP NOTE LOCATION: Room 433, ICU. SUBJECTIVE: This is a 66-year-old male with recent acute respiratory failure and underlying bilateral pleural effusion and currently being followed closely for metabolic management. He also had recent hyperglycemic accelerations that have improved remarkably as noted. His latest chemistries showed a BUN of 81, sodium 148, potassium 3.3, chloride 112, CO2 of 24, glucose 104, and creatinine 4.3. His latest prolactin level is 58.3, which is expected to be elevated in the presence of underlying renal insufficiency as noted. His latest thyroid study showed a T4 of 5.58 with a free T4 of 0.7 and a TSH of 5.55. So, at this time, we will continue the same low-dose correction scale using regular insulin as ordered. We will also continue the low-dose oral hypoglycemic therapy with glipizide given as 10 mg b.i.d. before meals as ordered. We will continue the same low-dose correction scale using levothyroxine at 50 mcg once daily as ordered. We will obtain serial chemistries and supplement accordingly as needed. We will follow. Bettina Mann MD
[2017-07-13] MEDS: Metoprolol 1 mg/ml Inj IVP SCH ×5 (02:11→23:29)
[2017-07-13 04:36] LABS: ABG ALLEN TEST YES; ARTERIAL BLOOD GAS HCO3 26.4 mmol/L (21-28); ARTERIAL BLOOD GAS O2 SAT 99.7 % (95-98); ARTERIAL BLOOD GAS PCO2 41 mm/Hg (35-45); ARTERIAL BLOOD GAS PH 7.42 (7.35-7.45); ARTERIAL BLOOD GAS PO2 99 mm/Hg (80-100); ARTERIAL BLOOD GAS TCO2 27.9 mmol/L (22-28)
[2017-07-13] MEDS: Insulin Lispro (humaLOG) 100 Units/ml Inj SC SCH ×4 (04:36→21:35)
[2017-07-13 05:23] LABS: BASO # 0.1 K/uL (0.0-0.2); BASO % 2.1 % (0.0-2.0); EOS # 0.4 K/uL (0.0-0.7); HEMOGLOBIN 8.6 g/dL (12.0-18.0); LYMPH # 0.9 K/uL (1.0-4.3); LYMPH % 17.4 % (20.0-40.0); MEAN CELL VOLUME 90.4 fl (80.0-94.0); MEAN CORPUSCULAR HEMOGLOBIN 31.3 pg (27.0-31.0); MEAN CORPUSCULAR HGB CONC 34.6 g/dL (33.0-37.0); MEAN PLATELET VOLUME 10.4 fl (7.2-11.7); MONO # 0.3 K/uL (0.0-0.8); MONO % 6.4 % (0.0-10.0); NEUT # 3.5 K/uL (1.8-7.0); NEUT % 67.1 % (50.0-75.0); NRBC % 0.3 % (0.0-0.0); RBC 2.76 Mil/uL (4.40-5.90); RED CELL DISTRIBUTION WIDTH 16.1 % (11.5-14.5); WHITE BLOOD COUNT 5.1 K/uL (4.8-10.8)
[2017-07-13] MEDS: Levothyroxine 50 MCG TAB PO SCH (05:39)
[2017-07-13 05:40] LABS: ALB/GLOB RATIO 0.9 (1.0-2.1); ALBUMIN 2.5 g/dL (3.5-5.0); CALCIUM 9.4 mg/dL (8.4-10.2)
--- NOTE | 2017-07-13 07:24 | CP.PCM.PN ---
Subjective - Date & Time of Evaluation Date of Evaluation: 07/13/17 Time of Evaluation: 06:30 - Subjective Subjective: Cardiothoracic Surgery Note for Dr. Gannon Patient seen and examined at bedside. No acute event overnight. Patient is intubated and on vent support. As per nurse, he tolerated positive pressure trial yesterday for 8 hrs. Another trial will be down today. Patient is alert and awake. He is able to follow some commands. Denies any pain. Patient with elevate BP (SBP in 170s). Bilateral chest tubes on water seal with output of 120 cc/24 hrs as per nursing. Objective - Vital Signs/Intake and Output Vital Signs (last 24 hours): Temp Pulse Resp BP Pulse Ox 98.6 F 71 19 178/81 H 97 07/13/17 04:00 07/13/17 06:00 07/13/17 06:00 07/13/17 06:00 07/13/17 06:00 Intake and Output: 07/13/17 07/13/17 06:59 18:59 Intake Total 800 Output Total 600 Balance 200 - Medications Medications: Current Medications Amlodipine Besylate (Norvasc) 10 mg PO DAILY [facility] Last Admin: 07/12/17 10:07 Dose: 10 mg Bacitracin (Bacitracin Oint) 1 applic TOP DAILY [facility] Last Admin: 07/12/17 10:02 Dose: 1 applic Calcium Acetate (Phoslo) 2,001 mg PO 0830,1200,1830 [facility] Last Admin: 07/12/17 18:32 Dose: 2,001 mg Dextrose (Dextrose 50% Inj) 0 ml IV STAT PRN; Protocol PRN Reason: Hypoglycemia Protocol Dextrose (Glutose 15) 0 gm PO ONCE PRN; Protocol PRN Reason: Hypoglycemia Protocol Epoetin Roel (Procrit) 14,000 unit SC MWF [facility] Last Admin: 07/11/17 09:04 Dose: 14,000 unit Fluconazole (Diflucan) 200 mg PO DAILY [facility] PRN Reason: Protocol Last Admin: 07/12/17 10:02 Dose: 200 mg Glipizide (Glucotrol) 10 mg PO BIDAC [facility] Last Admin: 07/12/17 17:02 Dose: 10 mg Glucagon (Glucagen Diagnostic Kit) 0 mg IM STAT PRN; Protocol PRN Reason: Hypoglycemia Protocol Hydralazine HCl (Apresoline) 25 mg PO Q8 [facility] Last Admin: 07/13/17 00:49 Dose: 25 mg Levetiracetam 500 mg/ Sodium (Chloride) 105 mls @ 210 mls/hr IVPB Q12 [facility] Last Admin: 07/12/17 21:41 Dose: 210 mls/hr Cefepime HCl 1 gm/ Sodium (Chloride) 50 mls @ 50 mls/hr IVPB DAILY [facility] PRN Reason: Protocol Insulin Human Lispro (Humalog) 0 units SC Q6H [facility] PRN Reason: Protocol Last Admin: 07/13/17 04:36 Dose: Not Given Levothyroxine Sodium (Synthroid) 50 mcg PO DAILY@0630 [facility] Last Admin: 07/13/17 05:39 Dose: 50 mcg Lisinopril (Zestril) 10 mg PO DAILY [facility] Last Admin: 07/12/17 10:08 Dose: 10 mg Lorazepam (Ativan) 1 mg IVP STAT STA Stop: 07/13/17 07:14 Metoprolol Tartrate (Lopressor) 5 mg IVP Q6 [facility] Last Admin: 07/13/17 04:37 Dose: Not Given Mirtazapine (Remeron) 30 mg PO HS [facility] Last Admin: 07/12/17 21:42 Dose: 30 mg Pantoprazole Sodium (Protonix Inj) 40 mg IVP Q12 [facility] Last Admin: 07/12/17 21:42 Dose: 40 mg Sodium Bicarbonate (Sodium Bicarbonate Tab) 1,300 mg PO Q8 [facility] Last Admin: 07/02/17 16:23 Dose: 1,300 mg Thiamine HCl (Vitamin B1 Tab) 100 mg PO BID [facility] Last Admin: 07/12/17 17:00 Dose: 100 mg - Labs Labs: 07/13/17 05:10 07/13/17 05:10 PT 13.4 Seconds (9.8-13.1) H 07/08/17 12:50 INR 1.2 (0.9-1.2) 07/08/17 12:50 APTT 30.8 Seconds (25.6-37.1) 07/08/17 12:50 - Constitutional Appears: No Acute Distress - Head Exam Head Exam: ATRAUMATIC, NORMOCEPHALIC - Eye Exam Eye Exam: EOMI, Normal appearance Pupil Exam: PERRL - ENT Exam ENT Exam: Mucous Membranes Moist Additional comments: et tube and OG tube in place - Respiratory Exam Additional comments: intubated and on ventilator support bilateral chest tubes in place with serosanguinous output - Cardiovascular Exam Cardiovascular Exam: REGULAR RHYTHM - GI/Abdominal Exam GI & Abdominal Exam: Soft, Normal Bowel Sounds. absent: Tenderness - Neurological Exam Neurological Exam: Alert, Awake - Psychiatric Exam Psychiatric exam: Flat Affect - Skin Skin Exam: Dry, Intact, Normal Color, Warm Assessment and Plan - Assessment and Plan (Free Text) Plan: 66 M with bilateral pleural effusions s/p bilateral chest tubes, respiratory failure, s/p cardiac arrest, and nephrotic syndrome -Chest tubes to water seal -CXR daily - no signs of pneumothorax, trace bilateral effusions still present -Management as per ICU -Talc pleurodesis this week if patient is stable -Will discuss with Dr Jagdeep Cagle PGY1
--- NOTE | 2017-07-13 07:26 | RAD ---
PROCEDURE: CHEST RADIOGRAPH, 1 VIEW HISTORY: intubated, chest tube COMPARISON: Chest radiograph dated 07/12/2017 FINDINGS: LUNGS: Pulmonary vascular congestion. PLEURA: Small to moderate left and trace right pleural effusions. CARDIOVASCULAR: Atherosclerotic aortic calcifications. Cardiomediastinal silhouette stably prominent. OSSEOUS STRUCTURES: Unchanged. VISUALIZED UPPER ABDOMEN: Normal. OTHER FINDINGS: Endotracheal and enteric tubes, unchanged. Left subclavian access venous catheter unchanged. Bilateral chest tubes, unchanged. IMPRESSION: Small to moderate left and trace right pleural effusions.
--- NOTE | 2017-07-13 08:08 | RAD ---
EXAM: XR Chest, 1 View CLINICAL HISTORY: 66 years old, male; Pain; Chest pain; Radiating; Additional info: Pleural effusions. Respiratory failure TECHNIQUE: Frontal view of the chest. COMPARISON: CR - CHEST PORTABLE 2017-07-02 04:35 FINDINGS: Lungs: Bibasilar right middle lobe and lingular nonspecific infiltrates and consolidation are present, consistent with atelectasis or pneumonia. Pleural space: Moderate bilateral pleural effusions. No pneumothorax. Heart: There is silhouetting of bilateral heart borders. Mediastinum: Unremarkable. Bones/joints: Degenerative changes within the spine. Degenerative changes within the left shoulder. Tubes, lines and devices: The endotracheal tube is above the endy. The NG tube is below the hemidiaphragm and the tip is not seen. Left subclavian central venous line is in SVC. There is right sided chest tube. There is right chest wall emphysema. IMPRESSION: 1. Moderate bilateral pleural effusions. There is possible interval increase in the right-sided pleural effusion when compared to prior examination. 2. Bibasilar right middle lobe and lingular nonspecific infiltrates and consolidation are present, consistent with atelectasis or pneumonia versus mucus plugging or aspiration. 3. Interval placement of right basilar chest tube with right chest wall emphysema. There is increased haziness of the right lung base when compared to prior examination. This could be due to increasing pleural effusion versus artifactual secondary to a parenchymal opacity associated with atelectasis or related to chest tube insertion. Correlation with chest tube drainage is recommended.
--- NOTE | 2017-07-13 08:58 | CP.PCM.PN ---
Subjective - Date & Time of Evaluation Date of Evaluation: 07/13/17 Time of Evaluation: 08:55 - Subjective Subjective: Mr. Durand was seen and examined at the bedside in ICU. He is responsive to pain stimuli with pupils sluggish. He remains on mechanical ventilation with GCS 4T. He also has OGT for feeding and medication. He has bilateral chest tube draining to a serosanguinous fluid. He is unable to follow simple commands. is H /H was low and PRBC was given to the patient. He had episode of elevated blood pressure and lopressor was given. At present his BP-175/74. He also has the bilateral lower SCD's. Objective - Vital Signs/Intake and Output Vital Signs (last 24 hours): Temp Pulse Resp BP Pulse Ox 96.6 F L 70 15 175/74 H 100 07/13/17 08:00 07/13/17 08:00 07/13/17 08:00 07/13/17 08:00 07/13/17 08:00 Intake and Output: 07/13/17 07/13/17 06:59 18:59 Intake Total 800 Output Total 600 Balance 200 - Medications Medications: Current Medications Amlodipine Besylate (Norvasc) 10 mg PO DAILY [facility] Last Admin: 07/12/17 10:07 Dose: 10 mg Bacitracin (Bacitracin Oint) 1 applic TOP DAILY [facility] Last Admin: 07/12/17 10:02 Dose: 1 applic Calcium Acetate (Phoslo) 2,001 mg PO 0830,1200,1830 [facility] Last Admin: 07/12/17 18:32 Dose: 2,001 mg Dextrose (Dextrose 50% Inj) 0 ml IV STAT PRN; Protocol PRN Reason: Hypoglycemia Protocol Dextrose (Glutose 15) 0 gm PO ONCE PRN; Protocol PRN Reason: Hypoglycemia Protocol Epoetin Roel (Procrit) 14,000 unit SC MWF [facility] Last Admin: 07/11/17 09:04 Dose: 14,000 unit Fluconazole (Diflucan) 200 mg PO DAILY [facility] PRN Reason: Protocol Last Admin: 07/12/17 10:02 Dose: 200 mg Glipizide (Glucotrol) 10 mg PO BIDAC [facility] Last Admin: 07/12/17 17:02 Dose: 10 mg Glucagon (Glucagen Diagnostic Kit) 0 mg IM STAT PRN; Protocol PRN Reason: Hypoglycemia Protocol Hydralazine HCl (Apresoline) 25 mg PO Q8 [facility] Last Admin: 07/13/17 00:49 Dose: 25 mg Levetiracetam 500 mg/ Sodium (Chloride) 105 mls @ 210 mls/hr IVPB Q12 [facility] Last Admin: 07/12/17 21:41 Dose: 210 mls/hr Cefepime HCl 1 gm/ Sodium (Chloride) 50 mls @ 50 mls/hr IVPB DAILY [facility] PRN Reason: Protocol Insulin Human Lispro (Humalog) 0 units SC Q6H [facility] PRN Reason: Protocol Last Admin: 07/13/17 04:36 Dose: Not Given Levothyroxine Sodium (Synthroid) 50 mcg PO DAILY@0630 [facility] Last Admin: 07/13/17 05:39 Dose: 50 mcg Lisinopril (Zestril) 10 mg PO DAILY [facility] Last Admin: 07/12/17 10:08 Dose: 10 mg Metoprolol Tartrate (Lopressor) 5 mg IVP Q6 [facility] Last Admin: 07/13/17 04:37 Dose: Not Given Mirtazapine (Remeron) 30 mg PO HS [facility] Last Admin: 07/12/17 21:42 Dose: 30 mg Pantoprazole Sodium (Protonix Inj) 40 mg IVP Q12 [facility] Last Admin: 07/12/17 21:42 Dose: 40 mg Sodium Bicarbonate (Sodium Bicarbonate Tab) 1,300 mg PO Q8 [facility] Last Admin: 07/02/17 16:23 Dose: 1,300 mg Thiamine HCl (Vitamin B1 Tab) 100 mg PO BID [facility] Last Admin: 07/12/17 17:00 Dose: 100 mg - Labs Labs: 07/13/17 05:10 07/13/17 05:10 PT 13.4 Seconds (9.8-13.1) H 07/08/17 12:50 INR 1.2 (0.9-1.2) 07/08/17 12:50 APTT 30.8 Seconds (25.6-37.1) 07/08/17 12:50 - Constitutional Appears: No Acute Distress - Head Exam Head Exam: NORMAL INSPECTION - Neurological Exam Neuro motor strength exam: Left Upper Extremity: 0, Right Upper Extremity: 0, Left Lower Extremity: 0, Right Lower Extremity: 0 Additional comments: GCS-4T Assessment and Plan (1) Altered mental status Assessment & Plan: Case discussed with Dr. Das, continue all current medical regimen. If the mental status deteriorate, do stat CT of the head without contrast. Status: Acute
[2017-07-13] MEDS: levETIRAcetam 500 MG in Sodium Chloride 0.9% 100 ML IVPB SCH ×2 (09:53→20:49)
--- NOTE | 2017-07-13 10:42 | CP.PCM.PN ---
Subjective - Date & Time of Evaluation Date of Evaluation: 07/13/17 Time of Evaluation: 10:40 - Subjective Subjective: no overnight events. transfused 1u pRBC yesterday. intubated. CPAP trials. chest tubes in. [place] in. Objective - Vital Signs/Intake and Output Vital Signs (last 24 hours): Temp Pulse Resp BP Pulse Ox 96.6 F L 70 15 175/77 H 100 07/13/17 08:00 07/13/17 09:26 07/13/17 08:00 07/13/17 09:26 07/13/17 08:00 Intake and Output: 07/13/17 07/13/17 06:59 18:59 Intake Total 800 Output Total 600 Balance 200 - Medications Medications: Current Medications Amlodipine Besylate (Norvasc) 10 mg PO DAILY [facility] Last Admin: 07/13/17 09:26 Dose: 10 mg Bacitracin (Bacitracin Oint) 1 applic TOP DAILY [facility] Last Admin: 07/12/17 10:02 Dose: 1 applic Calcium Acetate (Phoslo) 2,001 mg PO 0830,1200,1830 [facility] Last Admin: 07/13/17 09:27 Dose: 2,001 mg Dextrose (Dextrose 50% Inj) 0 ml IV STAT PRN; Protocol PRN Reason: Hypoglycemia Protocol Dextrose (Glutose 15) 0 gm PO ONCE PRN; Protocol PRN Reason: Hypoglycemia Protocol Epoetin Roel (Procrit) 14,000 unit SC MWF [facility] Last Admin: 07/11/17 09:04 Dose: 14,000 unit Fluconazole (Diflucan) 200 mg PO DAILY [facility] PRN Reason: Protocol Last Admin: 07/13/17 09:26 Dose: 200 mg Glipizide (Glucotrol) 10 mg PO BIDAC [facility] Last Admin: 07/13/17 09:26 Dose: 10 mg Glucagon (Glucagen Diagnostic Kit) 0 mg IM STAT PRN; Protocol PRN Reason: Hypoglycemia Protocol Hydralazine HCl (Apresoline) 25 mg PO Q8 [facility] Last Admin: 07/13/17 09:26 Dose: 25 mg Levetiracetam 500 mg/ Sodium (Chloride) 105 mls @ 210 mls/hr IVPB Q12 [facility] Last Admin: 07/13/17 09:53 Dose: 210 mls/hr Cefepime HCl 1 gm/ Sodium (Chloride) 50 mls @ 50 mls/hr IVPB DAILY [facility] PRN Reason: Protocol Insulin Human Lispro (Humalog) 0 units SC Q6H [facility] PRN Reason: Protocol Last Admin: 07/13/17 04:36 Dose: Not Given Levothyroxine Sodium (Synthroid) 50 mcg PO DAILY@0630 [facility] Last Admin: 07/13/17 05:39 Dose: 50 mcg Lisinopril (Zestril) 10 mg PO DAILY [facility] Last Admin: 07/13/17 09:25 Dose: 10 mg Metoprolol Tartrate (Lopressor) 5 mg IVP Q6 [facility] Last Admin: 07/13/17 04:37 Dose: Not Given Mirtazapine (Remeron) 30 mg PO HS [facility] Last Admin: 07/12/17 21:42 Dose: 30 mg Pantoprazole Sodium (Protonix Inj) 40 mg IVP Q12 [facility] Last Admin: 07/13/17 09:27 Dose: 40 mg Sodium Bicarbonate (Sodium Bicarbonate Tab) 1,300 mg PO Q8 [facility] Last Admin: 07/02/17 16:23 Dose: 1,300 mg Thiamine HCl (Vitamin B1 Tab) 100 mg PO BID [facility] Last Admin: 07/13/17 09:26 Dose: 100 mg - Labs Labs: 07/13/17 05:10 07/13/17 05:10 PT 13.4 Seconds (9.8-13.1) H 07/08/17 12:50 INR 1.2 (0.9-1.2) 07/08/17 12:50 APTT 30.8 Seconds (25.6-37.1) 07/08/17 12:50 - Constitutional Appears: No Acute Distress - Head Exam Head Exam: NORMAL INSPECTION - Eye Exam Additional comments: eye opening - ENT Exam Additional comments: intubated - Neck Exam Neck Exam: Normal Inspection - Respiratory Exam Respiratory Exam: absent: Rhonchi, Wheezes Additional comments: intubated - Cardiovascular Exam Cardiovascular Exam: REGULAR RHYTHM - GI/Abdominal Exam GI & Abdominal Exam: Soft Additional comments: tube feeds - Neurological Exam Neurological Exam: Awake - Skin Skin Exam: Warm Additional comments: UE pitting edema - Additional Findings Additional findings: [place], b/l chest tubes Assessment and Plan - Assessment and Plan (Free Text) Assessment: 66yo M w/ PMHx HTN, DM, DM nephropathy, monoclonal gammopathy, recurrent L pleural effusion admitted for sepsis, Hypothermia, CHINTAN on CKD currently intubated and DNR code status. Plan: CPAP trial as tolerated, H/H stable, ACEi restarted 1) Acute Respiratory Failure -ventilator day #10 -sputum cx ross Alb fungus cx. , diflucan PO, mycamine stopped 2) Recurrent Left Pleural effusion, Transudate -Pulmonology consult appreciated: no benefit for bronchoscopy or lung biopsy -Cardiothoracic surgery consult appreciated, considering talc pleurodesis - s/p Chest tube placement POD#5 left side -s/p chest tube placement POD#3 right side -quantiferon gold:indeterminate, AFB x4 neg -pleural cx with RBC 3) HAP -improved -c/w cefepime day # 18, linezolid day # 18 (stopped) 4) DM nephropathy -Kidney biopsy 06/05/17: Diabetic nephropathy, nodular glomerulosclerosis, associated with aprox 40 % globally sclerosed glomeruli( calss III), 10-15 % segmentally sclerosed glomeruli, docal moderate interstitial fibrosis and mod vascular sclerosis, including marked hyaline arteriolosclerosis.NO EVIDENCE OF MONOCLONAL LIGHT OR HEAVY CHAIN-RELATED RENAL DISEASE. -Nephro consult appreciated: c/w albumin, dilaudid for pain, no morphine, no NSAID. No steroids needed -Renal duplex: no renal vein thrombosis 5) CHINTAN on CKD stage 4 w/ new onset of ATN - Nephorologist consult appreciated -no steroids, no Hd -lisinopril increased from 10mg to 20mg daily 6) Thrombocytopenia -HemOnc consult appreciated 7) Hypothyroidism, subclinical -Econdrinologist consult appreciated -c/w levothryroxin 8) Hyperprolactinemia -Prolactin trending down -Endocrionologist consult suggested -MRI brain:no inracraneal hemorrhage, chronic lacunar infarct b/l cerebral, changes in dali haydee represent chronic ischemia or sequela of osmotic myelonilolysis not excluded.chronic b/l basal nuclei lacunar infarcts, mastoid ppasification secondary to intubation 9) Pressure Ulcer and TDI -resolved 10) pEF CHF -Echo 05/31/17 normal EF 60-65% -c/w labetalol, hydralazine 11) DM 2 -SSI 12) HTN - Hydralazine 25 Q8. To keep systolic BP 150 - Labetalol 5m IV PRN -lisinopril increased from 10mg to 20mg daily 13) Anemia -secondary to CKD -s/p transfucion 4u pRBC -C/W procrit 14) DVT prophylaxis -Lovenox 30 mg sc (renal dose) 15) GI prophylaxis -Pantoprazol 40 mg IV
[2017-07-13] MEDS: Bacitracin OINT 15GM TOP SCH (11:07)
[2017-07-13] MEDS: Cefepime 1 GM in Sodium Chloride 0.9% 50 ML IVPB SCH (11:50)
--- NOTE | 2017-07-13 12:02 | CP.PCM.PN ---
Subjective - Date & Time of Evaluation Date of Evaluation: 07/13/17 Time of Evaluation: 12:02 - Subjective Subjective: STILL INTUBATED AND BEING VENTILATED CHEST TUBES IN PLACE WITH MINIMAL DRAINAGE Objective - Vital Signs/Intake and Output Vital Signs (last 24 hours): Temp Pulse Resp BP Pulse Ox 96.6 F L 63 18 196/82 H 98 07/13/17 08:00 07/13/17 11:15 07/13/17 10:00 07/13/17 11:15 07/13/17 10:00 Intake and Output: 07/13/17 07/13/17 06:59 18:59 Intake Total 800 Output Total 600 Balance 200 - Medications Medications: Current Medications Amlodipine Besylate (Norvasc) 10 mg PO DAILY [facility] Last Admin: 07/13/17 09:26 Dose: 10 mg Bacitracin (Bacitracin Oint) 1 applic TOP DAILY [facility] Last Admin: 07/13/17 11:07 Dose: 1 applic Calcium Acetate (Phoslo) 2,001 mg PO 0830,1200,1830 [facility] Last Admin: 07/13/17 09:27 Dose: 2,001 mg Dextrose (Dextrose 50% Inj) 0 ml IV STAT PRN; Protocol PRN Reason: Hypoglycemia Protocol Dextrose (Glutose 15) 0 gm PO ONCE PRN; Protocol PRN Reason: Hypoglycemia Protocol Epoetin Roel (Procrit) 14,000 unit SC MWF [facility] Last Admin: 07/11/17 09:04 Dose: 14,000 unit Fluconazole (Diflucan) 200 mg PO DAILY [facility] PRN Reason: Protocol Last Admin: 07/13/17 09:26 Dose: 200 mg Glipizide (Glucotrol) 10 mg PO BIDAC [facility] Last Admin: 07/13/17 09:26 Dose: 10 mg Glucagon (Glucagen Diagnostic Kit) 0 mg IM STAT PRN; Protocol PRN Reason: Hypoglycemia Protocol Hydralazine HCl (Apresoline) 25 mg PO Q8 [facility] Last Admin: 07/13/17 09:26 Dose: 25 mg Levetiracetam 500 mg/ Sodium (Chloride) 105 mls @ 210 mls/hr IVPB Q12 [facility] Last Admin: 07/13/17 09:53 Dose: 210 mls/hr Cefepime HCl 1 gm/ Sodium (Chloride) 50 mls @ 50 mls/hr IVPB DAILY [facility] PRN Reason: Protocol Insulin Human Lispro (Humalog) 0 units SC Q6H [facility] PRN Reason: Protocol Last Admin: 07/13/17 11:16 Dose: Not Given Levothyroxine Sodium (Synthroid) 50 mcg PO DAILY@0630 [facility] Last Admin: 07/13/17 05:39 Dose: 50 mcg Lisinopril (Zestril) 20 mg PO DAILY [facility] Metoprolol Tartrate (Lopressor) 5 mg IVP Q6 [facility] Last Admin: 07/13/17 04:37 Dose: Not Given Mirtazapine (Remeron) 30 mg PO HS [facility] Last Admin: 07/12/17 21:42 Dose: 30 mg Pantoprazole Sodium (Protonix Inj) 40 mg IVP Q12 [facility] Last Admin: 07/13/17 09:27 Dose: 40 mg Sodium Bicarbonate (Sodium Bicarbonate Tab) 1,300 mg PO Q8 [facility] Last Admin: 07/02/17 16:23 Dose: 1,300 mg Thiamine HCl (Vitamin B1 Tab) 100 mg PO BID [facility] Last Admin: 07/13/17 09:26 Dose: 100 mg - Labs Labs: 07/13/17 05:10 07/13/17 05:10 PT 13.4 Seconds (9.8-13.1) H 07/08/17 12:50 INR 1.2 (0.9-1.2) 07/08/17 12:50 APTT 30.8 Seconds (25.6-37.1) 07/08/17 12:50 - Constitutional Appears: Chronically Ill - Head Exam Head Exam: ATRAUMATIC, NORMAL INSPECTION, NORMOCEPHALIC - Eye Exam Eye Exam: EOMI, Normal appearance, PERRL Pupil Exam: NORMAL ACCOMODATION, PERRL - ENT Exam ENT Exam: Mucous Membranes Moist, Normal Exam - Neck Exam Neck Exam: Full ROM, Normal Inspection. absent: Lymphadenopathy - Respiratory Exam Respiratory Exam: Decreased Breath Sounds, Rales Additional comments: ON THE RESPIRATOR - Cardiovascular Exam Cardiovascular Exam: REGULAR RHYTHM, +S1, +S2. absent: Murmur - GI/Abdominal Exam GI & Abdominal Exam: Soft, Normal Bowel Sounds. absent: Tenderness - Rectal Exam Rectal Exam: NORMAL INSPECTION - Extremities Exam Extremities Exam: Pedal Edema. absent: Joint Swelling - Back Exam Back Exam: NORMAL INSPECTION - Psychiatric Exam Psychiatric exam: Normal Affect, Normal Mood - Skin Skin Exam: Dry, Intact, Normal Color, Warm Assessment and Plan - Assessment and Plan (Free Text) Assessment: ACUTE RESPIRATORY FAILURE PLEURAL EFFUSIONS NEPHROTIC SYNDROME Plan: FOR CHEMICAL PLEURODYSES THIS WEEK
--- NOTE | 2017-07-13 12:58 | CP.CCUPN ---
CCU Subjective - Physician Review Subjective (Free Text): Events overnight reviewed. chest tube output recorded in electronic chart. Vitals significant for high BP 07/13/17 12:52 CCU Objective - Vital Signs / Intake & Output Vital Signs (Last 4 hours): Vital Signs Pulse Resp BP Pulse Ox 07/13/17 11:15 63 196/82 H 07/13/17 10:00 63 18 184/74 H 98 07/13/17 09:40 170/75 H 07/13/17 09:26 70 175/77 H 07/13/17 09:25 67 175/77 H Intake and Output (Last 8hrs): Intake & Output 07/12/17 07/13/17 07/13/17 22:59 06:59 14:59 Intake Total 1945 420 Output Total 670 600 Balance 1275 -180 Intake: Intake, Piggyback 600 Tube Feeding 720 270 Blood Product 325 Free Water Flush 300 150 Output: Chest Tube Drainage 120 Left Mid-Axillary Chest 0 Right Lateral Chest 120 Gastric Amount 0 Stomach 0 Urine 550 600 Urethral (Salazar) 550 600 Other: # Bowel Movements 1 1 - Physical Exam Head: Positive for: Atraumatic, Normocephalic Pupils: Positive for: PERRL Conjunctiva: Positive for: Normal. Negative for: Icteric Mouth: Positive for: Moist Mucous Membranes, Other (ET tube) Nose (External): Positive for: Abrasion (Nasal Abrasion-almost healed) Neck: Positive for: Other (central line: left neck in place with dressing, biopatch over line. clean and dry.) Respiratory/Chest: Positive for: Good Air Exchange (on mechancal ventilation), Decreased Breath Sounds (left side) Cardiovascular: Positive for: Regular Rate and Rhythm, Normal S1, S2. Negative for: Tachycardic, Bradycardic Abdomen: Negative for: Tenderness, Distention Genitourinary Male: Positive for: Penile Swelling, Testicle Swelling Upper Extremity: Positive for: Edema (bilateral 2-3+ pitting edema; right > left ) Lower Extremity: Positive for: Normal Inspection. Negative for: Edema, Tenderness Neurological: Positive for: Other (somnolent, arousable, intubated, following commands) Skin: Positive for: Warm, Dry, Other (left hand with open wound dorsum of hand) Psychiatric: Positive for: Other (intubated) - Medications Active Medications: Active Medications Generic Name Dose Route Start Last Admin Trade Name Freq PRN Reason Stop Dose Admin Amlodipine Besylate 10 mg 07/05/17 09:00 07/13/17 09:26 Norvasc PO 10 mg DAILY [facility] Administration Bacitracin 1 applic 07/11/17 09:00 07/13/17 11:07 Bacitracin Oint TOP 1 applic DAILY [facility] Administration Calcium Acetate 2,001 mg 07/05/17 08:30 07/13/17 09:27 Phoslo PO 2,001 mg 0830,1200,1830 [facility] Administration Dextrose 0 ml 06/22/17 22:36 Dextrose 50% Inj IV STAT PRN Hypoglycemia Protocol Protocol Dextrose 0 gm 06/22/17 22:36 Glutose 15 PO ONCE PRN Hypoglycemia Protocol Protocol Epoetin Roel 14,000 unit 07/07/17 09:00 07/11/17 09:04 Procrit SC 14,000 unit MWF [facility] Administration Fluconazole 200 mg 07/12/17 09:00 07/13/17 09:26 Diflucan PO 200 mg DAILY [facility] Administration Protocol Glipizide 10 mg 07/11/17 16:30 07/13/17 09:26 Glucotrol PO 10 mg BIDAC [facility] Administration Glucagon 0 mg 06/22/17 22:36 Glucagen Diagnostic Kit IM STAT PRN Hypoglycemia Protocol Protocol Hydralazine HCl 10 mg 07/13/17 12:47 Apresoline IV Q6 PRN Systolic Blood Pressure Hydralazine HCl 50 mg 07/13/17 12:48 Apresoline PO Q8 [facility] Levetiracetam 500 mg/ Sodium 105 mls @ 210 mls/hr 07/04/17 21:00 07/13/17 09: 53 Chloride IVPB 210 mls/hr Q12 [facility] Administration Cefepime HCl 1 gm/ Sodium 50 mls @ 50 mls/hr 07/13/17 09:00 07/13/17 11:50 Chloride IVPB 50 mls/hr DAILY [facility] Administration Protocol Insulin Human Lispro 0 units 07/12/17 09:45 07/13/17 11:16 Humalog SC Not Given Q6H [facility] Protocol Levothyroxine Sodium 50 mcg 07/05/17 06:30 07/13/17 05:39 Synthroid PO 50 mcg DAILY@0630 [facility] Administration Lisinopril 20 mg 07/14/17 09:00 Zestril PO DAILY [facility] Metoprolol Tartrate 5 mg 07/03/17 15:24 07/13/17 09:40 Lopressor IVP 5 mg Q6 [facility] Administration Mirtazapine 30 mg 07/10/17 22:00 07/12/17 21:42 Remeron PO 30 mg HS [facility] Administration Pantoprazole Sodium 40 mg 07/08/17 21:00 07/13/17 09:27 Protonix Inj IVP 40 mg Q12 [facility] Administration Sodium Bicarbonate 1,300 mg 06/30/17 17:00 07/02/17 16:23 Sodium Bicarbonate Tab PO 1,300 mg Q8 [facility] Administration Thiamine HCl 100 mg 06/24/17 21:30 07/13/17 09:26 Vitamin B1 Tab PO 100 mg BID [facility] Administration - Patient Studies Lab Studies: Microbiology Studies 07/10/17 11:04 Gram Stain - Final Pleural Fluid Body Fluid Culture - Preliminary NO GROWTH AFTER 2 DAYS 07/08/17 15:54 Gram Stain - Final Pleural Fluid Body Fluid Culture - Preliminary NO GROWTH AFTER 3 DAYS 06/25/17 16:51 Mycobacterial Culture - Preliminary Other: Please Indicate Lab Studies 07/13/17 07/13/17 07/13/17 Range/Units 11:10 05:10 05:10 WBC 5.1 (4.8-10.8) K/uL RBC 2.76 L (4.40-5.90) Mil/uL Hgb 8.6 L D (12.0-18.0) g/dL Hct 24.9 L (35.0-51.0) % MCV 90.4 D (80.0-94.0) fl MCH 31.3 H (27.0-31.0) pg MCHC 34.6 (33.0-37.0) g/dL RDW 16.1 H (11.5-14.5) % Plt Count 140 (130-400) K/uL MPV 10.4 (7.2-11.7) fl Neut % (Auto) 67.1 (50.0-75.0) % Lymph % (Auto) 17.4 L (20.0-40.0) % [place] % (Auto) 6.4 (0.0-10.0) % Eos % (Auto) 7.0 H (0.0-4.0) % Baso % (Auto) 2.1 H (0.0-2.0) % Neut # 3.5 (1.8-7.0) K/uL Lymph # 0.9 L (1.0-4.3) K/uL [place] # 0.3 (0.0-0.8) K/uL Eos # 0.4 (0.0-0.7) K/uL Baso # 0.1 (0.0-0.2) K/uL pCO2 (35-45) mm/Hg pO2 (80-100) mm/Hg HCO3 (21-28) mmol/L ABG pH (7.35-7.45) ABG Total CO2 (22-28) mmol/L ABG O2 Saturation (95-98) % ABG Base Excess (-2.0-3.0) mmol/L Andry Test ABG Potassium (3.6-5.2) mmol/L A-a O2 Difference mm/Hg Sodium 145 (132-148) mmol/L Chloride 111 H (98-107) mmol/L Glucose (75-110) mg/dL Lactate (0.7-2.1) mmol/L Vent Mode Mechanical Rate FiO2 % Tidal Volume PEEP Potassium 3.7 (3.6-5.0) MMOL/L Carbon Dioxide 28 (22-30) mmol/L Anion Gap 10 (10-20) BUN 50 H (9-20) mg/dl Creatinine 2.4 H (0.8-1.5) mg/dl Est GFR ( Amer) 33 Est GFR (Non-Af Amer) 27 POC Glucose (mg/dL) 174 H (65-110) mg/dL Random Glucose 183 H (75-110) mg/dL Calcium 9.4 (8.4-10.2) mg/dL Phosphorus 3.5 (2.5-4.5) mg/dl Magnesium 2.2 (1.6-2.3) MG/DL Total Bilirubin 0.2 (0.2-1.3) mg/dl AST 30 (17-59) U/L ALT 48 (21-72) U/L Alkaline Phosphatase 210 H D (38-126) U/L Total Protein 5.3 L (6.3-8.2) G/DL Albumin 2.5 L (3.5-5.0) g/dL Globulin 2.8 (2.2-3.9) gm/dL Albumin/Globulin Ratio 0.9 L (1.0-2.1) Arterial Blood Potassium (3.6-5.2) mmol/L Blood Type Antibody Screen Crossmatch BBK History Checked 07/13/17 07/13/17 07/12/17 Range/Units 04:34 04:00 21:45 WBC (4.8-10.8) K/uL RBC (4.40-5.90) Mil/uL Hgb (12.0-18.0) g/dL Hct (35.0-51.0) % MCV (80.0-94.0) fl MCH (27.0-31.0) pg MCHC (33.0-37.0) g/dL RDW (11.5-14.5) % Plt Count (130-400) K/uL MPV (7.2-11.7) fl Neut % (Auto) (50.0-75.0) % Lymph % (Auto) (20.0-40.0) % [place] % (Auto) (0.0-10.0) % Eos % (Auto) (0.0-4.0) % Baso % (Auto) (0.0-2.0) % Neut # (1.8-7.0) K/uL Lymph # (1.0-4.3) K/uL [place] # (0.0-0.8) K/uL Eos # (0.0-0.7) K/uL Baso # (0.0-0.2) K/uL pCO2 41 (35-45) mm/Hg pO2 99 (80-100) mm/Hg HCO3 26.4 (21-28) mmol/L ABG pH 7.42 (7.35-7.45) ABG Total CO2 27.9 (22-28) mmol/L ABG O2 Saturation 99.7 H (95-98) % ABG Base Excess 1.9 (-2.0-3.0) mmol/L Andry Test Yes ABG Potassium 3.6 (3.6-5.2) mmol/L A-a O2 Difference 64.0 mm/Hg Sodium 142.0 (132-148) mmol/L Chloride 113.0 H (98-107) mmol/L Glucose 200 H (75-110) mg/dL Lactate 0.6 L (0.7-2.1) mmol/L Vent Mode A/c Mechanical Rate 16 FiO2 30.0 % Tidal Volume 400 PEEP 5 Potassium (3.6-5.0) MMOL/L Carbon Dioxide (22-30) mmol/L Anion Gap (10-20) BUN (9-20) mg/dl Creatinine (0.8-1.5) mg/dl Est GFR ( Amer) Est GFR (Non-Af Amer) POC Glucose (mg/dL) 180 H 160 H (65-110) mg/dL Random Glucose (75-110) mg/dL Calcium (8.4-10.2) mg/dL Phosphorus (2.5-4.5) mg/dl Magnesium (1.6-2.3) MG/DL Total Bilirubin (0.2-1.3) mg/dl AST (17-59) U/L ALT (21-72) U/L Alkaline Phosphatase (38-126) U/L Total Protein (6.3-8.2) G/DL Albumin (3.5-5.0) g/dL Globulin (2.2-3.9) gm/dL Albumin/Globulin Ratio (1.0-2.1) Arterial Blood Potassium 3.6 (3.6-5.2) mmol/L Blood Type Antibody Screen Crossmatch BBK History Checked 07/12/17 07/12/17 Range/Units 16:45 10:00 WBC (4.8-10.8) K/uL RBC (4.40-5.90) Mil/uL Hgb (12.0-18.0) g/dL Hct (35.0-51.0) % MCV (80.0-94.0) fl MCH (27.0-31.0) pg MCHC (33.0-37.0) g/dL RDW (11.5-14.5) % Plt Count (130-400) K/uL MPV (7.2-11.7) fl Neut % (Auto) (50.0-75.0) % Lymph % (Auto) (20.0-40.0) % [place] % (Auto) (0.0-10.0) % Eos % (Auto) (0.0-4.0) % Baso % (Auto) (0.0-2.0) % Neut # (1.8-7.0) K/uL Lymph # (1.0-4.3) K/uL [place] # (0.0-0.8) K/uL Eos # (0.0-0.7) K/uL Baso # (0.0-0.2) K/uL pCO2 (35-45) mm/Hg pO2 (80-100) mm/Hg HCO3 (21-28) mmol/L ABG pH (7.35-7.45) ABG Total CO2 (22-28) mmol/L ABG O2 Saturation (95-98) % ABG Base Excess (-2.0-3.0) mmol/L Andry Test ABG Potassium (3.6-5.2) mmol/L A-a O2 Difference mm/Hg Sodium (132-148) mmol/L Chloride (98-107) mmol/L Glucose (75-110) mg/dL Lactate (0.7-2.1) mmol/L Vent Mode Mechanical Rate FiO2 % Tidal Volume PEEP Potassium (3.6-5.0) MMOL/L Carbon Dioxide (22-30) mmol/L Anion Gap (10-20) BUN (9-20) mg/dl Creatinine (0.8-1.5) mg/dl Est GFR ( Amer) Est GFR (Non-Af Amer) POC Glucose (mg/dL) 167 H (65-110) mg/dL Random Glucose (75-110) mg/dL Calcium (8.4-10.2) mg/dL Phosphorus (2.5-4.5) mg/dl Magnesium (1.6-2.3) MG/DL Total Bilirubin (0.2-1.3) mg/dl AST (17-59) U/L ALT (21-72) U/L Alkaline Phosphatase (38-126) U/L Total Protein (6.3-8.2) G/DL Albumin (3.5-5.0) g/dL Globulin (2.2-3.9) gm/dL Albumin/Globulin Ratio (1.0-2.1) Arterial Blood Potassium (3.6-5.2) mmol/L Blood Type A NEGATIVE Antibody Screen Negative Crossmatch See Detail BBK History Checked Patient has bt Laboratory Results - last 24 hr 07/12/17 07/12/17 07/12/17 10:00 16:45 21:45 WBC RBC Hgb Hct MCV MCH MCHC RDW Plt Count MPV Neut % (Auto) Lymph % (Auto) [place] % (Auto) Eos % (Auto) Baso % (Auto) Neut # Lymph # [place] # Eos # Baso # pCO2 pO2 HCO3 ABG pH ABG Total CO2 ABG O2 Saturation ABG Base Excess Andry Test ABG Potassium A-a O2 Difference Sodium Chloride Glucose Lactate Vent Mode Mechanical Rate FiO2 Tidal Volume PEEP Potassium Carbon Dioxide Anion Gap BUN Creatinine Est GFR ( Amer) Est GFR (Non-Af Amer) POC Glucose (mg/dL) 167 H 160 H Random Glucose Calcium Phosphorus Magnesium Total Bilirubin AST ALT Alkaline Phosphatase Total Protein Albumin Globulin Albumin/Globulin Ratio Arterial Blood Potassium Blood Type A NEGATIVE Antibody Screen Negative Crossmatch See Detail BBK History Checked Patient has bt 07/13/17 07/13/17 07/13/17 04:00 04:34 05:10 WBC 5.1 RBC 2.76 L Hgb 8.6 L D Hct 24.9 L MCV 90.4 D MCH 31.3 H MCHC 34.6 RDW 16.1 H Plt Count 140 MPV 10.4 Neut % (Auto) 67.1 Lymph % (Auto) 17.4 L [place] % (Auto) 6.4 Eos % (Auto) 7.0 H Baso % (Auto) 2.1 H Neut # 3.5 Lymph # 0.9 L [place] # 0.3 Eos # 0.4 Baso # 0.1 pCO2 41 pO2 99 HCO3 26.4 ABG pH 7.42 ABG Total CO2 27.9 ABG O2 Saturation 99.7 H ABG Base Excess 1.9 Andry Test Yes ABG Potassium 3.6 A-a O2 Difference 64.0 Sodium 142.0 Chloride 113.0 H Glucose 200 H Lactate 0.6 L Vent Mode A/c Mechanical Rate 16 FiO2 30.0 Tidal Volume 400 PEEP 5 Potassium Carbon Dioxide Anion Gap BUN Creatinine Est GFR ( Amer) Est GFR (Non-Af Amer) POC Glucose (mg/dL) 180 H Random Glucose Calcium Phosphorus Magnesium Total Bilirubin AST ALT Alkaline Phosphatase Total Protein Albumin Globulin Albumin/Globulin Ratio Arterial Blood Potassium 3.6 Blood Type Antibody Screen Crossmatch BBK History Checked 07/13/17 07/13/17 05:10 11:10 WBC RBC Hgb Hct MCV MCH MCHC RDW Plt Count MPV Neut % (Auto) Lymph % (Auto) [place] % (Auto) Eos % (Auto) Baso % (Auto) Neut # Lymph # [place] # Eos # Baso # pCO2 pO2 HCO3 ABG pH ABG Total CO2 ABG O2 Saturation ABG Base Excess Andry Test ABG Potassium A-a O2 Difference Sodium 145 Chloride 111 H Glucose Lactate Vent Mode Mechanical Rate FiO2 Tidal Volume PEEP Potassium 3.7 Carbon Dioxide 28 Anion Gap 10 BUN 50 H Creatinine 2.4 H Est GFR ( Amer) 33 Est GFR (Non-Af Amer) 27 POC Glucose (mg/dL) 174 H Random Glucose 183 H Calcium 9.4 Phosphorus 3.5 Magnesium 2.2 Total Bilirubin 0.2 AST 30 ALT 48 Alkaline Phosphatase 210 H D Total Protein 5.3 L Albumin 2.5 L Globulin 2.8 Albumin/Globulin Ratio 0.9 L Arterial Blood Potassium Blood Type Antibody Screen Crossmatch BBK History Checked Fingerstick Blood Sugar Results: 174 Assessment/Plan - Assessment and Plan (Free Text) Plan: 66 yo M w/ pmh of htn, dm, CKD, w/ 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, monoclonal gammopathy, recurrent L pleural effusion, admitted with hypothermia, CHINTAN -HTN: currently on av tarah tamara HR 60s, acei increased by nephrology, add hudralazine PRN -Hypoxic respiratory failure: tolerating CPAP trial daily -s/p cardiac arrest: off pressors, now HTN: continue av tarah tamara, acei and hydralazine -b/l chest tube, if chest tube output <100 consider talc infusion for pleurodesis -COPD: continue bronchodilators, no wheezing, peak presure 20 -CKD stage III-IV; exact etiology unknown, nephrology follow up -AMS: more awake today, check keppra level -Sepsis: RLL infiltrate, continue abx as per ID, f/u sputum culture and de- escalate -Chronic diastolic heart failure: continue current heart medications, monitor BP - DM 2, BGM q6hrs, ISS -Anemia of chronic disease: monitor cbc to keep hb >8 -continue dvt/pud ppx: protonix/scds -continue tube feeds to avoid malnutrition -replace electrolytes -awaiting pleurodesis, check keppra level
--- NOTE | 2017-07-13 13:34 | CP.PCM.PN ---
Subjective - Date & Time of Evaluation Date of Evaluation: 07/13/17 Time of Evaluation: 06:00 - Subjective Subjective: easily arousable on vent in NAD BP elevated no fever CT in place Objective - Vital Signs/Intake and Output Vital Signs (last 24 hours): Temp Pulse Resp BP Pulse Ox 96.6 F L 70 18 191/86 H 98 07/13/17 08:00 07/13/17 13:03 07/13/17 10:00 07/13/17 13:03 07/13/17 10:00 Intake and Output: 07/13/17 07/13/17 06:59 18:59 Intake Total 800 Output Total 600 Balance 200 - Medications Medications: Current Medications Amlodipine Besylate (Norvasc) 10 mg PO DAILY [facility] Last Admin: 07/13/17 09:26 Dose: 10 mg Bacitracin (Bacitracin Oint) 1 applic TOP DAILY [facility] Last Admin: 07/13/17 11:07 Dose: 1 applic Calcium Acetate (Phoslo) 2,001 mg PO 0830,1200,1830 [facility] Last Admin: 07/13/17 13:05 Dose: 2,001 mg Dextrose (Dextrose 50% Inj) 0 ml IV STAT PRN; Protocol PRN Reason: Hypoglycemia Protocol Dextrose (Glutose 15) 0 gm PO ONCE PRN; Protocol PRN Reason: Hypoglycemia Protocol Epoetin Roel (Procrit) 14,000 unit SC MWF [facility] Last Admin: 07/11/17 09:04 Dose: 14,000 unit Fluconazole (Diflucan) 200 mg PO DAILY [facility] PRN Reason: Protocol Last Admin: 07/13/17 09:26 Dose: 200 mg Glipizide (Glucotrol) 10 mg PO BIDAC [facility] Last Admin: 07/13/17 09:26 Dose: 10 mg Glucagon (Glucagen Diagnostic Kit) 0 mg IM STAT PRN; Protocol PRN Reason: Hypoglycemia Protocol Hydralazine HCl (Apresoline) 10 mg IV Q6 PRN PRN Reason: Systolic Blood Pressure Last Admin: 07/13/17 13:03 Dose: 10 mg Hydralazine HCl (Apresoline) 50 mg PO Q8 [facility] Levetiracetam 500 mg/ Sodium (Chloride) 105 mls @ 210 mls/hr IVPB Q12 [facility] Last Admin: 07/13/17 09:53 Dose: 210 mls/hr Cefepime HCl 1 gm/ Sodium (Chloride) 50 mls @ 50 mls/hr IVPB DAILY [facility] PRN Reason: Protocol Last Admin: 07/13/17 11:50 Dose: 50 mls/hr Insulin Human Lispro (Humalog) 0 units SC Q6H [facility] PRN Reason: Protocol Last Admin: 07/13/17 11:16 Dose: Not Given Levothyroxine Sodium (Synthroid) 50 mcg PO DAILY@0630 [facility] Last Admin: 07/13/17 05:39 Dose: 50 mcg Lisinopril (Zestril) 20 mg PO DAILY [facility] Metoprolol Tartrate (Lopressor) 5 mg IVP Q6 [facility] Last Admin: 07/13/17 09:40 Dose: 5 mg Mirtazapine (Remeron) 30 mg PO HS [facility] Last Admin: 07/12/17 21:42 Dose: 30 mg Pantoprazole Sodium (Protonix Inj) 40 mg IVP Q12 [facility] Last Admin: 07/13/17 09:27 Dose: 40 mg Sodium Bicarbonate (Sodium Bicarbonate Tab) 1,300 mg PO Q8 [facility] Last Admin: 07/02/17 16:23 Dose: 1,300 mg Thiamine HCl (Vitamin B1 Tab) 100 mg PO BID [facility] Last Admin: 07/13/17 09:26 Dose: 100 mg - Labs Labs: 07/13/17 05:10 07/13/17 05:10 PT 13.4 Seconds (9.8-13.1) H 07/08/17 12:50 INR 1.2 (0.9-1.2) 07/08/17 12:50 APTT 30.8 Seconds (25.6-37.1) 07/08/17 12:50 - Constitutional Appears: Non-toxic, Cachectic, Chronically Ill - Head Exam Head Exam: NORMOCEPHALIC - Eye Exam Eye Exam: PERRL - ENT Exam ENT Exam: absent: Mucous Membranes Dry - Neck Exam Neck Exam: Lymphadenopathy - Respiratory Exam Respiratory Exam: Decreased Breath Sounds, Rales, Rhonchi - Cardiovascular Exam Cardiovascular Exam: REGULAR RHYTHM - GI/Abdominal Exam GI & Abdominal Exam: Distended, Soft - Rectal Exam Rectal Exam: Deferred - Exam Exam: NORMAL INSPECTION - Extremities Exam Extremities Exam: absent: Pedal Edema - Back Exam Back Exam: absent: CVA tenderness (L), CVA tenderness (R) - Neurological Exam Neurological Exam: Alert, Altered, CN II-XII Intact Assessment and Plan (1) Acute renal failure Status: Acute (2) Altered mental status Status: Acute (3) CHF (congestive heart failure) Status: Acute (4) DM2 (diabetes mellitus, type 2) Status: Acute (5) HCAP (healthcare-associated pneumonia) Status: Acute (6) Pleural effusion Status: Acute (7) SIRS (systemic inflammatory response syndrome) Status: Acute (8) Sepsis Status: Acute (9) Acute kidney injury superimposed on chronic kidney disease Status: Acute (10) Alcohol abuse Status: Acute (11) Anasarca Status: Acute (12) Anemia of renal disease Status: Acute (13) Bilateral lower extremity edema Status: Acute - Assessment and Plan (Free Text) Assessment: 66 yo male with hx ETOH, DMII, Nephrotic syndrome admitted with resp failure, sepsis, recurrent pleural efffusions all cultures neg to date AFB cultures neg as well Cont empiric rx for now Overall improved but prognosis poor
--- NOTE | 2017-07-13 21:33 | CP.PCM.PN ---
Subjective - Date & Time of Evaluation Date of Evaluation: 07/13/17 Time of Evaluation: 14:30 - Subjective Subjective: Patient reports some L thigh discomfort; Objective - Vital Signs/Intake and Output Vital Signs (last 24 hours): Temp Pulse Resp BP Pulse Ox 97.3 F L 61 12 171/61 H 97 07/13/17 20:00 07/13/17 20:00 07/13/17 20:00 07/13/17 20:00 07/13/17 20:00 Intake and Output: 07/13/17 07/14/17 18:59 06:59 Intake Total 1040 90 Output Total 1210 Balance -170 90 - Medications Medications: Current Medications Amlodipine Besylate (Norvasc) 10 mg PO DAILY [facility] Last Admin: 07/13/17 09:26 Dose: 10 mg Bacitracin (Bacitracin Oint) 1 applic TOP DAILY [facility] Last Admin: 07/13/17 11:07 Dose: 1 applic Calcium Acetate (Phoslo) 2,001 mg PO 0830,1200,1830 [facility] Last Admin: 07/13/17 19:09 Dose: 2,001 mg Dextrose (Dextrose 50% Inj) 0 ml IV STAT PRN; Protocol PRN Reason: Hypoglycemia Protocol Dextrose (Glutose 15) 0 gm PO ONCE PRN; Protocol PRN Reason: Hypoglycemia Protocol Epoetin Roel (Procrit) 14,000 unit SC MWF [facility] Last Admin: 07/11/17 09:04 Dose: 14,000 unit Fluconazole (Diflucan) 200 mg PO DAILY [facility] PRN Reason: Protocol Last Admin: 07/13/17 09:26 Dose: 200 mg Glipizide (Glucotrol) 10 mg PO BIDAC [facility] Last Admin: 07/13/17 19:07 Dose: 10 mg Glucagon (Glucagen Diagnostic Kit) 0 mg IM STAT PRN; Protocol PRN Reason: Hypoglycemia Protocol Hydralazine HCl (Apresoline) 10 mg IV Q6 PRN PRN Reason: Systolic Blood Pressure Last Admin: 07/13/17 13:03 Dose: 10 mg Hydralazine HCl (Apresoline) 50 mg PO Q8 [facility] Last Admin: 07/13/17 19:07 Dose: 50 mg Levetiracetam 500 mg/ Sodium (Chloride) 105 mls @ 210 mls/hr IVPB Q12 [facility] Last Admin: 07/13/17 20:49 Dose: 210 mls/hr Cefepime HCl 1 gm/ Sodium (Chloride) 50 mls @ 50 mls/hr IVPB DAILY [facility] PRN Reason: Protocol Last Admin: 07/13/17 11:50 Dose: 50 mls/hr Insulin Human Lispro (Humalog) 0 units SC Q6H [facility] PRN Reason: Protocol Last Admin: 07/13/17 19:08 Dose: Not Given Levothyroxine Sodium (Synthroid) 50 mcg PO DAILY@0630 [facility] Last Admin: 07/13/17 05:39 Dose: 50 mcg Lisinopril (Zestril) 20 mg PO DAILY [facility] Metoprolol Tartrate (Lopressor) 5 mg IVP Q6 [facility] Last Admin: 07/13/17 19:08 Dose: 5 mg Mirtazapine (Remeron) 30 mg PO HS [facility] Last Admin: 07/13/17 21:22 Dose: 30 mg Pantoprazole Sodium (Protonix Inj) 40 mg IVP Q12 [facility] Last Admin: 07/13/17 20:50 Dose: 40 mg Sodium Bicarbonate (Sodium Bicarbonate Tab) 1,300 mg PO Q8 [facility] Last Admin: 07/02/17 16:23 Dose: 1,300 mg Thiamine HCl (Vitamin B1 Tab) 100 mg PO BID [facility] Last Admin: 07/13/17 19:07 Dose: 100 mg - Labs Labs: 07/13/17 05:10 07/13/17 05:10 PT 13.4 Seconds (9.8-13.1) H 07/08/17 12:50 INR 1.2 (0.9-1.2) 07/08/17 12:50 APTT 30.8 Seconds (25.6-37.1) 07/08/17 12:50 - Constitutional Appears: No Acute Distress - Eye Exam Eye Exam: absent: Scleral icterus - ENT Exam ENT Exam: Mucous Membranes Moist - Respiratory Exam Respiratory Exam: Clear to Ausculation Bilateral. absent: Respiratory Distress - Cardiovascular Exam Cardiovascular Exam: RRR, +S1, +S2 - GI/Abdominal Exam GI & Abdominal Exam: Soft. absent: Distended, Tenderness - Exam Additional comments: scrotal swelling improved; - Extremities Exam Additional comments: improving leg and arm edema; - Neurological Exam Neurological Exam: Alert, Awake Additional comments: following commands; - Psychiatric Exam Psychiatric exam: absent: Agitated - Skin Skin Exam: Warm. absent: Cyanosis Assessment and Plan (1) Acute renal failure Assessment & Plan: CHINTAN on CKD; ATN resolving; started on low dose KEVIN blockade yesterday with serum creatinine remaining stable; patient is auto-diuresing, should avoid giving further diuretics for now unless there is some pulm vascular congestion seen on daily CXR; Status: Acute (2) Pleural effusion Assessment & Plan: s/p b/l chest tubes; awaiting cytology from R effusion (was bloody); Status: Chronic (3) Nephrotic syndrome Assessment & Plan: Severe, secondary to DM nephropathy; started on lisinopril, increasing dose to 20 mg today; goal is to increase to 40 mg; we will also try to add non- dihydopiyridine CCB (ie. diltiazem or verapamil) as a second line agent for anti -proteinuric effect (will need to taper off B-tamara); Status: Chronic (4) Chronic kidney disease, stage 3 (moderate) Status: Chronic (5) Hypertensive CKD (chronic kidney disease) Assessment & Plan: BP increasing, hydralazine and lisinopril dose increased; will monitor and make changes as above; Status: Acute (6) Hypothermia Status: Acute (7) Altered mental status Status: Acute (8) SIRS (systemic inflammatory response syndrome) Status: Acute (9) Anemia Assessment & Plan: s/p 1 u prbc yesterday; continue EPO qMWF; Status: Chronic (10) Monoclonal gammopathy Status: Chronic
--- NOTE | 2017-07-14 00:13 | PN ---
DATE: ENDOCRINOLOGY FOLLOWUP NOTE LOCATION: ICU, room 433. SUBJECTIVE: This is a 66-year-old male with recent early hypothyroidism and superimposed acute sick euthyroid syndrome, now being followed closely for metabolic management. He is tolerating the levothyroxine given at a low dose as noted. His latest thyroid studies showed a T4 of 5.58 with a TSH of 5.55 and a free T4 of 0.7. His glycemic profile has also been fluctuating, but improved and the latest glucose levels have ranged from 174 to 180 mg/dL. His latest chemistry showed a BUN of 50, sodium 145, potassium 3.7, chloride 111, CO2 of , glucose 83 and creatinine 2.4. So at this time we will continue the low-dose oral hypoglycemic therapy with glipizide given as 10 mg b.i.d. before meals as ordered. We will continue also the levothyroxine given as 50 mcg once daily as given. We will titrate incrementally as indicated to optimize metabolic control. We will follow. Bettina Mann MD
[2017-07-14] MEDS: Metoprolol 1 mg/ml Inj IVP SCH ×4 (04:07→21:06)
[2017-07-14] MEDS: Insulin Lispro (humaLOG) 100 Units/ml Inj SC SCH ×4 (04:32→21:52)
[2017-07-14 05:22] LABS: BASO # 0.1 K/uL (0.0-0.2); BASO % 2.3 % (0.0-2.0); EOS # 0.3 K/uL (0.0-0.7); EOS % 5.3 % (0.0-4.0); HEMOGLOBIN 9.4 g/dL (12.0-18.0); LYMPH # 0.8 K/uL (1.0-4.3); LYMPH % 13.8 % (20.0-40.0); MEAN CELL VOLUME 91.8 fl (80.0-94.0); MEAN CORPUSCULAR HEMOGLOBIN 30.5 pg (27.0-31.0); MEAN CORPUSCULAR HGB CONC 33.3 g/dL (33.0-37.0); MONO # 0.4 K/uL (0.0-0.8); NEUT # 3.9 K/uL (1.8-7.0); NEUT % 71.6 % (50.0-75.0); NRBC % 0.7 % (0.0-0.0); RBC 3.07 Mil/uL (4.40-5.90); WHITE BLOOD COUNT 5.4 K/uL (4.8-10.8)
[2017-07-14 05:25] LABS: ABG ALLEN TEST YES; ARTERIAL BLOOD GAS HCO3 25.7 mmol/L (21-28); ARTERIAL BLOOD GAS O2 SAT 99.4 % (95-98); ARTERIAL BLOOD GAS PCO2 48 mm/Hg (35-45); ARTERIAL BLOOD GAS PH 7.36 (7.35-7.45); ARTERIAL BLOOD GAS PO2 106 mm/Hg (80-100); ARTERIAL BLOOD GAS TCO2 28.6 mmol/L (22-28)
[2017-07-14 05:37] LABS: ALB/GLOB RATIO 0.9 (1.0-2.1); ALBUMIN 2.5 g/dL (3.5-5.0); CALCIUM 9.6 mg/dL (8.4-10.2)
[2017-07-14] MEDS: Levothyroxine 50 MCG TAB PO SCH (06:27)
[2017-07-14] MEDS ORDERED: Potassium Chloride 20 mEq/15 ml LIQ UD PO ONE (07:40)
--- NOTE | 2017-07-14 07:42 | CP.PCM.PN ---
Subjective - Date & Time of Evaluation Date of Evaluation: 07/14/17 Time of Evaluation: 07:37 - Subjective Subjective: CT Surgery Progress Note for Dr. Gannon This patient was seen and examined this Am at bedside tolerating CPAP since yesterday. Chest tube outputs minimal bilaterally, no air leaks. [id number]. Objective - Vital Signs/Intake and Output Vital Signs (last 24 hours): Temp Pulse Resp BP Pulse Ox 97.8 F 74 13 169/78 H 100 07/14/17 04:00 07/14/17 06:00 07/14/17 06:00 07/14/17 06:00 07/14/17 06:00 Intake and Output: 07/14/17 07/14/17 06:59 18:59 Intake Total 940 Output Total 730 Balance 210 - Medications Medications: Current Medications Amlodipine Besylate (Norvasc) 10 mg PO DAILY [facility] Last Admin: 07/13/17 09:26 Dose: 10 mg Bacitracin (Bacitracin Oint) 1 applic TOP DAILY [facility] Last Admin: 07/13/17 11:07 Dose: 1 applic Calcium Acetate (Phoslo) 2,001 mg PO 0830,1200,1830 [facility] Last Admin: 07/13/17 19:09 Dose: 2,001 mg Dextrose (Dextrose 50% Inj) 0 ml IV STAT PRN; Protocol PRN Reason: Hypoglycemia Protocol Dextrose (Glutose 15) 0 gm PO ONCE PRN; Protocol PRN Reason: Hypoglycemia Protocol Epoetin Roel (Procrit) 14,000 unit SC MWF [facility] Last Admin: 07/11/17 09:04 Dose: 14,000 unit Fluconazole (Diflucan) 200 mg PO DAILY [facility] PRN Reason: Protocol Last Admin: 07/13/17 09:26 Dose: 200 mg Glipizide (Glucotrol) 10 mg PO BIDAC [facility] Last Admin: 07/13/17 19:07 Dose: 10 mg Glucagon (Glucagen Diagnostic Kit) 0 mg IM STAT PRN; Protocol PRN Reason: Hypoglycemia Protocol Hydralazine HCl (Apresoline) 10 mg IV Q6 PRN PRN Reason: Systolic Blood Pressure Last Admin: 07/13/17 13:03 Dose: 10 mg Hydralazine HCl (Apresoline) 50 mg PO Q8 [facility] Last Admin: 07/14/17 01:02 Dose: 50 mg Levetiracetam 500 mg/ Sodium (Chloride) 105 mls @ 210 mls/hr IVPB Q12 [facility] Last Admin: 07/13/17 20:49 Dose: 210 mls/hr Cefepime HCl 1 gm/ Sodium (Chloride) 50 mls @ 50 mls/hr IVPB DAILY [facility] PRN Reason: Protocol Last Admin: 07/13/17 11:50 Dose: 50 mls/hr Insulin Human Lispro (Humalog) 0 units SC Q6H [facility] PRN Reason: Protocol Last Admin: 07/14/17 04:32 Dose: Not Given Levothyroxine Sodium (Synthroid) 50 mcg PO DAILY@0630 [facility] Last Admin: 07/14/17 06:27 Dose: 50 mcg Lisinopril (Zestril) 20 mg PO DAILY [facility] Metoprolol Tartrate (Lopressor) 2.5 mg IVP Q6 [facility] Last Admin: 07/14/17 04:07 Dose: 2.5 mg Mirtazapine (Remeron) 30 mg PO HS [facility] Last Admin: 07/13/17 21:22 Dose: 30 mg Pantoprazole Sodium (Protonix Inj) 40 mg IVP Q12 [facility] Last Admin: 07/13/17 20:50 Dose: 40 mg Sodium Bicarbonate (Sodium Bicarbonate Tab) 1,300 mg PO Q8 [facility] Last Admin: 07/02/17 16:23 Dose: 1,300 mg Thiamine HCl (Vitamin B1 Tab) 100 mg PO BID [facility] Last Admin: 07/13/17 19:07 Dose: 100 mg - Labs Labs: 07/14/17 04:20 07/14/17 04:20 PT 13.4 Seconds (9.8-13.1) H 07/08/17 12:50 INR 1.2 (0.9-1.2) 07/08/17 12:50 APTT 30.8 Seconds (25.6-37.1) 07/08/17 12:50 - Constitutional Appears: Non-toxic - Head Exam Head Exam: ATRAUMATIC, NORMOCEPHALIC - Eye Exam Eye Exam: EOMI - ENT Exam ENT Exam: Mucous Membranes Moist - Respiratory Exam Respiratory Exam: NORMAL BREATHING PATTERN - Cardiovascular Exam Cardiovascular Exam: +S1, +S2 - GI/Abdominal Exam GI & Abdominal Exam: Soft. absent: Tenderness - Neurological Exam Neurological Exam: Alert, Awake - Psychiatric Exam Psychiatric exam: Normal Affect - Skin Skin Exam: Dry, Intact Assessment and Plan - Assessment and Plan (Free Text) Assessment: 66 M with bilateral pleural effusions s/p bilateral chest tubes, respiratory failure, s/p cardiac arrest, and nephrotic syndrome -Chest tubes to water seal -CXR daily - no signs of pneumothorax, trace bilateral effusions still present -Management as per ICU -Talc pleurodesis this week if patient is stable -Will discuss with Dr Jagdeep West PGY2
[2017-07-14] MEDS: Cefepime 1 GM in Sodium Chloride 0.9% 50 ML IVPB SCH (08:13)
[2017-07-14] MEDS: Bacitracin OINT 15GM TOP SCH (08:13)
[2017-07-14] MEDS ORDERED: Sodium Chloride 3% for Inhalation 4 ML VIAL.NEB IH PRN (08:28)
--- NOTE | 2017-07-14 08:39 | CP.PCM.PN ---
Subjective - Date & Time of Evaluation Date of Evaluation: 07/14/17 Time of Evaluation: 08:35 - Subjective Subjective: Mr. Durand was seenand examined at the bedside in ICU. He is more alert and able to mumble word without any sound eventhough he has ET tube and OGT in huis mouth.He remains on mechanical ventilator and bilateral chest tube. He also has bilateral lower extremities SCD's.He is able to follow simple commands and denies any headache, dizziness, lightheadedness. He has bilateral upper extremities restraint for patient safety. There was no untoward events overnight. Objective - Vital Signs/Intake and Output Vital Signs (last 24 hours): Temp Pulse Resp BP Pulse Ox 97.7 F 76 22 148/62 100 07/14/17 08:00 07/14/17 08:00 07/14/17 08:00 07/14/17 08:15 07/14/17 08:00 Intake and Output: 07/14/17 07/14/17 06:59 18:59 Intake Total 940 94 Output Total 730 Balance 210 94 - Medications Medications: Current Medications Amlodipine Besylate (Norvasc) 10 mg PO DAILY [facility] Last Admin: 07/14/17 08:14 Dose: 10 mg Bacitracin (Bacitracin Oint) 1 applic TOP DAILY [facility] Last Admin: 07/14/17 08:13 Dose: 1 applic Bumetanide (Bumex) 2 mg IVP ONCE ONE Stop: 07/14/17 09:01 Calcium Acetate (Phoslo) 2,001 mg PO 0830,1200,1830 [facility] Last Admin: 07/14/17 08:14 Dose: 2,001 mg Dextrose (Dextrose 50% Inj) 0 ml IV STAT PRN; Protocol PRN Reason: Hypoglycemia Protocol Dextrose (Glutose 15) 0 gm PO ONCE PRN; Protocol PRN Reason: Hypoglycemia Protocol Epoetin Roel (Procrit) 14,000 unit SC MWF [facility] Last Admin: 07/11/17 09:04 Dose: 14,000 unit Fluconazole (Diflucan) 200 mg PO DAILY [facility] PRN Reason: Protocol Last Admin: 07/14/17 08:13 Dose: 200 mg Glipizide (Glucotrol) 10 mg PO BIDAC [facility] Last Admin: 07/14/17 08:13 Dose: 10 mg Glucagon (Glucagen Diagnostic Kit) 0 mg IM STAT PRN; Protocol PRN Reason: Hypoglycemia Protocol Hydralazine HCl (Apresoline) 10 mg IV Q6 PRN PRN Reason: Systolic Blood Pressure Last Admin: 07/13/17 13:03 Dose: 10 mg Hydralazine HCl (Apresoline) 50 mg PO Q8 [facility] Last Admin: 07/14/17 08:13 Dose: 50 mg Levetiracetam 500 mg/ Sodium (Chloride) 105 mls @ 210 mls/hr IVPB Q12 [facility] Last Admin: 07/13/17 20:49 Dose: 210 mls/hr Cefepime HCl 1 gm/ Sodium (Chloride) 50 mls @ 50 mls/hr IVPB DAILY [facility] PRN Reason: Protocol Last Admin: 07/14/17 08:13 Dose: 50 mls/hr Insulin Human Lispro (Humalog) 0 units SC Q6H [facility] PRN Reason: Protocol Last Admin: 07/14/17 04:32 Dose: Not Given Levothyroxine Sodium (Synthroid) 50 mcg PO DAILY@0630 [facility] Last Admin: 07/14/17 06:27 Dose: 50 mcg Lisinopril (Zestril) 20 mg PO DAILY [facility] Last Admin: 07/14/17 08:15 Dose: 20 mg Metoprolol Tartrate (Lopressor) 2.5 mg IVP Q6 [facility] Last Admin: 07/14/17 04:07 Dose: 2.5 mg Mirtazapine (Remeron) 30 mg PO HS [facility] Last Admin: 07/13/17 21:22 Dose: 30 mg Pantoprazole Sodium (Protonix Inj) 40 mg IVP Q12 [facility] Last Admin: 07/14/17 08:15 Dose: 40 mg Sodium Bicarbonate (Sodium Bicarbonate Tab) 1,300 mg PO Q8 [facility] Last Admin: 07/02/17 16:23 Dose: 1,300 mg Thiamine HCl (Vitamin B1 Tab) 100 mg PO BID [facility] Last Admin: 07/14/17 08:15 Dose: 100 mg - Labs Labs: 07/14/17 04:20 07/14/17 04:20 PT 13.4 Seconds (9.8-13.1) H 07/08/17 12:50 INR 1.2 (0.9-1.2) 07/08/17 12:50 APTT 30.8 Seconds (25.6-37.1) 07/08/17 12:50 - Constitutional Appears: No Acute Distress - Head Exam Head Exam: NORMAL INSPECTION - Neurological Exam Neurological Exam: Alert, Awake Neuro motor strength exam: Left Upper Extremity: 3, Right Upper Extremity: 3, Left Lower Extremity: 3, Right Lower Extremity: 3 Additional comments: Neurological improved from previous examination.He is able to follow commands. Assessment and Plan (1) Altered mental status Assessment & Plan: Case discussed with Dr. Das, continue all current medical regimen. With the patient history of cerebral artery atherosclerosis and negative for occult blood , will start on aspirin 81 mg via OGT daily and Plavix 75 mg via OGT daily. Status: Acute
--- NOTE | 2017-07-14 10:19 | CP.PCM.PN ---
Subjective - Date & Time of Evaluation Date of Evaluation: 07/14/17 Time of Evaluation: 07:10 - Subjective Subjective: Patient seen and examined bedside in ICU on ventilator day #13 on AC now RR 16, peep5 FIo2 30 %. Patient awake,alert. obey commands and more active moving hands and feet. Patient denies pain by shaking his head. Tolerating CPAP trial yesterday. B/L chest tubes, no drainage noted left side. right side 340 ml in 24 h. Salazar with yellow urine 250 ml. no overnight events. Objective - Vital Signs/Intake and Output Vital Signs (last 24 hours): Temp Pulse Resp BP Pulse Ox 97.7 F 76 22 177/74 H 100 07/14/17 08:00 07/14/17 08:00 07/14/17 08:00 07/14/17 09:23 07/14/17 08:00 Intake and Output: 07/14/17 07/14/17 06:59 18:59 Intake Total 940 94 Output Total 730 Balance 210 94 - Medications Medications: Current Medications Amlodipine Besylate (Norvasc) 10 mg PO DAILY [facility] Last Admin: 07/14/17 08:14 Dose: 10 mg Aspirin (Ecotrin) 81 mg PO DAILY [facility] Last Admin: 07/14/17 09:21 Dose: 81 mg Bacitracin (Bacitracin Oint) 1 applic TOP DAILY [facility] Last Admin: 07/14/17 08:13 Dose: 1 applic Calcium Acetate (Phoslo) 2,001 mg PO 0830,1200,1830 [facility] Last Admin: 07/14/17 08:14 Dose: 2,001 mg Clopidogrel Bisulfate (Plavix) 75 mg PO DAILY [facility] Last Admin: 07/14/17 09:21 Dose: 75 mg Dextrose (Dextrose 50% Inj) 0 ml IV STAT PRN; Protocol PRN Reason: Hypoglycemia Protocol Dextrose (Glutose 15) 0 gm PO ONCE PRN; Protocol PRN Reason: Hypoglycemia Protocol Epoetin Roel (Procrit) 14,000 unit SC MWF [facility] Last Admin: 07/11/17 09:04 Dose: 14,000 unit Fluconazole (Diflucan) 200 mg PO DAILY [facility] PRN Reason: Protocol Last Admin: 07/14/17 08:13 Dose: 200 mg Glipizide (Glucotrol) 10 mg PO BIDAC [facility] Last Admin: 07/14/17 08:13 Dose: 10 mg Glucagon (Glucagen Diagnostic Kit) 0 mg IM STAT PRN; Protocol PRN Reason: Hypoglycemia Protocol Hydralazine HCl (Apresoline) 10 mg IV Q6 PRN PRN Reason: Systolic Blood Pressure Last Admin: 07/13/17 13:03 Dose: 10 mg Hydralazine HCl (Apresoline) 50 mg PO Q8 [facility] Last Admin: 07/14/17 08:13 Dose: 50 mg Levetiracetam 500 mg/ Sodium (Chloride) 105 mls @ 210 mls/hr IVPB Q12 [facility] Last Admin: 07/13/17 20:49 Dose: 210 mls/hr Cefepime HCl 1 gm/ Sodium (Chloride) 50 mls @ 50 mls/hr IVPB DAILY [facility] PRN Reason: Protocol Last Admin: 07/14/17 08:13 Dose: 50 mls/hr Insulin Human Lispro (Humalog) 0 units SC Q6H [facility] PRN Reason: Protocol Last Admin: 07/14/17 04:32 Dose: Not Given Levothyroxine Sodium (Synthroid) 50 mcg PO DAILY@0630 [facility] Last Admin: 07/14/17 06:27 Dose: 50 mcg Lisinopril (Zestril) 20 mg PO DAILY [facility] Last Admin: 07/14/17 08:15 Dose: 20 mg Metoprolol Tartrate (Lopressor) 2.5 mg IVP Q6 [facility] Last Admin: 07/14/17 09:23 Dose: 2.5 mg Mirtazapine (Remeron) 30 mg PO HS [facility] Last Admin: 07/13/17 21:22 Dose: 30 mg Pantoprazole Sodium (Protonix Inj) 40 mg IVP Q12 [facility] Last Admin: 07/14/17 08:15 Dose: 40 mg Sodium Bicarbonate (Sodium Bicarbonate Tab) 1,300 mg PO Q8 [facility] Last Admin: 07/02/17 16:23 Dose: 1,300 mg Thiamine HCl (Vitamin B1 Tab) 100 mg PO BID [facility] Last Admin: 07/14/17 08:15 Dose: 100 mg - Labs Labs: 07/14/17 04:20 07/14/17 04:20 PT 13.4 Seconds (9.8-13.1) H 07/08/17 12:50 INR 1.2 (0.9-1.2) 07/08/17 12:50 APTT 30.8 Seconds (25.6-37.1) 07/08/17 12:50 - Constitutional Appears: Non-toxic, Cachectic, Chronically Ill - Head Exam Head Exam: ATRAUMATIC, NORMOCEPHALIC - Eye Exam Eye Exam: Normal appearance - ENT Exam ENT Exam: Mucous Membranes Moist - Respiratory Exam Respiratory Exam: Decreased Breath Sounds. absent: Rales, Rhonchi, Wheezes Additional comments: b/l bibasal. B/L chest tubes. left side triple lumen subclavian catheter. - Cardiovascular Exam Cardiovascular Exam: REGULAR RHYTHM, +S1, +S2 - GI/Abdominal Exam GI & Abdominal Exam: Soft, Normal Bowel Sounds. absent: Tenderness - Extremities Exam Extremities Exam: Normal Inspection. absent: Pedal Edema Additional comments: B/L hands and forearm edema 1+. left hand abrasion with scab formation - Neurological Exam Neurological Exam: Alert, Awake - Skin Skin Exam: absent: Petechiae, Rash Assessment and Plan - Assessment and Plan (Free Text) Plan: 66yo M w/ PMHx HTN, DM, DM nephropathy, monoclonal gammopathy, recurrent L pleural effusion admitted for sepsis, Hypothermia, CHINTAN on CKD currently intubated and DNR code status. Plan: CPAP trial as tolerated, H/H stable, ACEi restarted 1) Acute Respiratory Failure -ventilator day #13 -sputum cx ross Alb fungus cx. , diflucan PO, mycamine day 13 2) Recurrent Left Pleural effusion, Transudate -Pulmonology consult appreciated: no benefit for bronchoscopy or lung biopsy -Cardiothoracic surgery consult appreciated, considering talc pleurodesis - s/p Chest tube placement POD#6 left side -s/p chest tube placement POD#4 right side -quantiferon gold:indeterminate, AFB x4 neg -pleural cx with RBC 3) HAP -improved -c/w cefepime day # 19, linezolid day # 18 (stopped) 4) DM nephropathy -Kidney biopsy 06/05/17: Diabetic nephropathy, nodular glomerulosclerosis, associated with aprox 40 % globally sclerosed glomeruli( calss III), 10-15 % segmentally sclerosed glomeruli, docal moderate interstitial fibrosis and mod vascular sclerosis, including marked hyaline arteriolosclerosis.NO EVIDENCE OF MONOCLONAL LIGHT OR HEAVY CHAIN-RELATED RENAL DISEASE. -Nephro consult appreciated: c/w albumin, dilaudid for pain, no morphine, no NSAID. No steroids needed -Renal duplex: no renal vein thrombosis 5) CHINTAN on CKD stage 4 w/ new onset of ATN - Nephorologist consult appreciated -no steroids, no Hd -lisinopril increased from 10mg to 20mg daily 6) Thrombocytopenia -HemOnc consult appreciated 7) Hypothyroidism, subclinical -Econdrinologist consult appreciated -c/w levothryroxin 8) Hyperprolactinemia -Prolactin trending down -Endocrionologist consult suggested -MRI brain:no inracraneal hemorrhage, chronic lacunar infarct b/l cerebral, changes in dali haydee represent chronic ischemia or sequela of osmotic myelonilolysis not excluded.chronic b/l basal nuclei lacunar infarcts, mastoid ppasification secondary to intubation 9) Pressure Ulcer and TDI -resolved 10) pEF CHF -Echo 05/31/17 normal EF 60-65% -c/w labetalol, hydralazine -lisinopril 20 mg daily 11) DM 2 -SSI 12) HTN - Hydralazine 25 Q8. To keep systolic BP 150 - Labetalol 5m IV PRN -lisinopril 20mg daily 13) Anemia -secondary to CKD -s/p transfucion 4u pRBC -C/W procrit 14) DVT prophylaxis -Lovenox 30 mg sc (renal dose) 15) GI prophylaxis -Pantoprazol 40 mg IV
[2017-07-14] MEDS: levETIRAcetam 500 MG in Sodium Chloride 0.9% 100 ML IVPB SCH ×2 (10:40→21:05)
[2017-07-14] MEDS: Epoetin Alfa 20000 UNIT/ML Inj SC SCH (10:41)
--- NOTE | 2017-07-14 10:56 | RAD ---
PROCEDURE: CHEST RADIOGRAPH, 1 VIEW HISTORY: intubated, chest tube COMPARISON: Portable chest radiograph 07/13/2017. FINDINGS: Nasogastric tube is been or retracted with the tip terminating at the upper 3rd of the esophagus and the side hole terminating at the lower pharynx. Advancing the nasogastric tube into the stomach and confirmed by radiography is advised. Otherwise, the endotracheal tube, left central line and bilateral chest tubes are unchanged in position. LUNGS: Left basilar opacity is diminishing suggesting improving left pleural effusion. Underlying atelectasis or infiltrate is not excluded at the left base. Borderline medial basilar patchy opacities diminishing. No right pleural effusion. No pneumothorax bilaterally. PLEURA: No pneumothorax or pleural fluid seen. As above. CARDIOVASCULAR: Cardiac size remains normal. No pulmonary derangement appreciated. OSSEOUS STRUCTURES: No significant abnormalities. VISUALIZED UPPER ABDOMEN: Normal. OTHER FINDINGS: None. IMPRESSION: Diminishing left pleural effusion though underlying atelectasis or infiltrate is not excluded at the left base. Nasonex tube appears to been retracted, terminating at the upper 3rd of the esophagus with the side hole of the tube in the lower pharynx. Advancing the catheter into the stomach and confirming by follow-up chest or abdomen radiograph is advised.
--- NOTE | 2017-07-14 10:59 | CP.CCUPN ---
CCU Subjective - Physician Review Subjective (Free Text): Events overnight reviewed. Patient remained on CPAP during the night. (+) secretions today sent for culture ?stenotrohpmonas CCU Objective - Vital Signs / Intake & Output Vital Signs (Last 4 hours): Vital Signs Temp Pulse Resp BP Pulse Ox 07/14/17 10:00 68 20 164/66 H 100 07/14/17 09:23 177/74 H 07/14/17 08:15 148/62 07/14/17 08:14 148/62 07/14/17 08:13 148/62 07/14/17 08:00 97.7 F 76 22 148/62 100 Intake and Output (Last 8hrs): Intake & Output 07/13/17 07/14/17 07/14/17 22:59 06:59 14:59 Intake Total 1470 510 386 Output Total 1210 730 Balance 260 -220 386 Weight 141 lb Intake: IV 100 0 6 Intake, Piggyback 200 50 Tube Feeding 720 360 180 Free Water Flush 450 150 150 Output: Chest Tube Drainage 210 130 Left Mid-Axillary Chest 0 0 Right Lateral Chest 210 130 Gastric Amount 0 Stomach 0 Urine 1000 600 Urethral (Salazar) 1000 600 Other: # Bowel Movements 1 1 1 - Physical Exam Head: Positive for: Atraumatic, Normocephalic Pupils: Positive for: PERRL Conjunctiva: Positive for: Normal. Negative for: Icteric Mouth: Positive for: Moist Mucous Membranes, Other (ET tube) Nose (External): Positive for: Abrasion (Nasal Abrasion-almost healed) Neck: Positive for: Other (central line: left neck in place with dressing, biopatch over line. clean and dry.) Respiratory/Chest: Positive for: Good Air Exchange (on mechancal ventilation), Decreased Breath Sounds (left side) Cardiovascular: Positive for: Regular Rate and Rhythm, Normal S1, S2. Negative for: Tachycardic, Bradycardic Abdomen: Negative for: Tenderness, Distention Genitourinary Male: Positive for: Penile Swelling, Testicle Swelling Upper Extremity: Positive for: Edema (bilateral 2-3+ pitting edema; right > left ) Lower Extremity: Positive for: Normal Inspection. Negative for: Edema, Tenderness Neurological: Positive for: Other (somnolent, arousable, intubated, following commands) Skin: Positive for: Warm, Dry, Other (left hand with open wound dorsum of hand) Psychiatric: Positive for: Other (intubated) - Medications Active Medications: Active Medications Generic Name Dose Route Start Last Admin Trade Name Freq PRN Reason Stop Dose Admin Amlodipine Besylate 10 mg 07/05/17 09:00 07/14/17 08:14 Norvasc PO 10 mg DAILY THOMAS Administration Aspirin 81 mg 07/14/17 09:00 07/14/17 09:21 Ecotrin PO 81 mg DAILY THOMAS Administration Bacitracin 1 applic 07/11/17 09:00 07/14/17 08:13 Bacitracin Oint TOP 1 applic DAILY THOMAS Administration Calcium Acetate 2,001 mg 07/05/17 08:30 07/14/17 08:14 Phoslo PO 2,001 mg 0830,1200,1830 [facility]OMAS Administration Clopidogrel Bisulfate 75 mg 07/14/17 09:00 07/14/17 09:21 Plavix PO 75 mg DAILY THOMAS Administration Dextrose 0 ml 06/22/17 22:36 Dextrose 50% Inj IV STAT PRN Hypoglycemia Protocol Protocol Dextrose 0 gm 06/22/17 22:36 Glutose 15 PO ONCE PRN Hypoglycemia Protocol Protocol Epoetin Roel 14,000 unit 07/07/17 09:00 07/14/17 10:41 Procrit SC 14,000 unit MWF [facility] Administration Fluconazole 200 mg 07/12/17 09:00 07/14/17 08:13 Diflucan PO 200 mg DAILY THOMAS Administration Protocol Glipizide 10 mg 07/11/17 16:30 07/14/17 08:13 Glucotrol PO 10 mg BIDAC THOMAS Administration Glucagon 0 mg 06/22/17 22:36 Glucagen Diagnostic Kit IM STAT PRN Hypoglycemia Protocol Protocol Hydralazine HCl 10 mg 07/13/17 12:47 07/13/17 13:03 Apresoline IV 10 mg Q6 PRN Administration Systolic Blood Pressure Hydralazine HCl 50 mg 07/13/17 12:48 07/14/17 08:13 Apresoline PO 50 mg Q8 [facility]OMAS Administration Levetiracetam 500 mg/ Sodium 105 mls @ 210 mls/hr 07/04/17 21:00 07/14/17 10: 40 Chloride IVPB 210 mls/hr Q12 [facility]OMAS Administration Cefepime HCl 1 gm/ Sodium 50 mls @ 50 mls/hr 07/13/17 09:00 07/14/17 08:13 Chloride IVPB 50 mls/hr DAILY THOMAS Administration Protocol Insulin Human Lispro 0 units 07/12/17 09:45 07/14/17 04:32 Humalog SC Not Given Q6H [facility] Protocol Levothyroxine Sodium 50 mcg 07/05/17 06:30 07/14/17 06:27 Synthroid PO 50 mcg DAILY@0630 [facility] Administration Lisinopril 20 mg 07/14/17 09:00 07/14/17 08:15 Zestril PO 20 mg DAILY [facility] Administration Metoprolol Tartrate 2.5 mg 07/13/17 23:59 07/14/17 09:23 Lopressor IVP 2.5 mg Q6 [facility]OMAS Administration Mirtazapine 30 mg 07/10/17 22:00 07/13/17 21:22 Remeron PO 30 mg HS THOMAS Administration Pantoprazole Sodium 40 mg 07/08/17 21:00 07/14/17 08:15 Protonix Inj IVP 40 mg Q12 [facility] Administration Sodium Bicarbonate 1,300 mg 06/30/17 17:00 07/02/17 16:23 Sodium Bicarbonate Tab PO 1,300 mg Q8 [facility] Administration Thiamine HCl 100 mg 06/24/17 21:30 07/14/17 08:15 Vitamin B1 Tab PO 100 mg BID THOMAS Administration - Patient Studies Lab Studies: Microbiology Studies 07/06/17 19:20 Mycobacterial Culture - Preliminary Other: Please Indicate 07/10/17 11:04 Gram Stain - Final Pleural Fluid Body Fluid Culture - Preliminary NO GROWTH AFTER 3 DAYS 07/08/17 15:54 Gram Stain - Final Pleural Fluid Body Fluid Culture - Final NO GROWTH AFTER 4 DAYS Lab Studies 07/14/17 07/14/17 07/14/17 Range/Units 05:03 04:26 04:20 WBC (4.8-10.8) K/uL RBC (4.40-5.90) Mil/uL Hgb (12.0-18.0) g/dL Hct (35.0-51.0) % MCV (80.0-94.0) fl MCH (27.0-31.0) pg MCHC (33.0-37.0) g/dL RDW (11.5-14.5) % Plt Count (130-400) K/uL MPV (7.2-11.7) fl Neut % (Auto) (50.0-75.0) % Lymph % (Auto) (20.0-40.0) % Labette % (Auto) (0.0-10.0) % Eos % (Auto) (0.0-4.0) % Baso % (Auto) (0.0-2.0) % Neut # (1.8-7.0) K/uL Lymph # (1.0-4.3) K/uL Labette # (0.0-0.8) K/uL Eos # (0.0-0.7) K/uL Baso # (0.0-0.2) K/uL pCO2 48 H (35-45) mm/Hg pO2 106 H (80-100) mm/Hg HCO3 25.7 (21-28) mmol/L ABG pH 7.36 (7.35-7.45) ABG Total CO2 28.6 H (22-28) mmol/L ABG O2 Saturation 99.4 H (95-98) % ABG Base Excess 1.0 (-2.0-3.0) mmol/L Andry Test Yes ABG Potassium 3.3 L (3.6-5.2) mmol/L A-a O2 Difference 48.0 mm/Hg Glucose 247 H (75-110) mg/dL Lactate 0.7 (0.7-2.1) mmol/L Vent Mode Cpap FiO2 30.0 % PEEP 5 Pressure Support 12 Sodium 143.0 145 (132-148) mmol/l Potassium 3.4 L (3.6-5.0) MMOL/L Chloride 115.0 H 111 H (98-107) mmol/L Carbon Dioxide 28 (22-30) mmol/L Anion Gap 9 L (10-20) BUN 46 H (9-20) mg/dl Creatinine 2.0 H (0.8-1.5) mg/dl Est GFR ( Amer) 41 Est GFR (Non-Af Amer) 34 POC Glucose (mg/dL) 257 H (65-110) mg/dL Random Glucose 240 H (75-110) mg/dL Calcium 9.6 (8.4-10.2) mg/dL Phosphorus 3.4 (2.5-4.5) mg/dl Magnesium 2.1 (1.6-2.3) MG/DL Total Bilirubin 0.3 (0.2-1.3) mg/dl AST 32 (17-59) U/L ALT 42 (21-72) U/L Alkaline Phosphatase 226 H (38-126) U/L Total Protein 5.3 L (6.3-8.2) G/DL Albumin 2.5 L (3.5-5.0) g/dL Globulin 2.9 (2.2-3.9) gm/dL Albumin/Globulin Ratio 0.9 L (1.0-2.1) Arterial Blood Potassium 3.3 L (3.6-5.2) mmol/L Ur Random Creatinine mg/dL Ur Random Sodium mmol/L 07/14/17 07/13/17 07/13/17 Range/Units 04:20 21:26 17:00 WBC 5.4 (4.8-10.8) K/uL RBC 3.07 L (4.40-5.90) Mil/uL Hgb 9.4 L (12.0-18.0) g/dL Hct 28.1 L (35.0-51.0) % MCV 91.8 (80.0-94.0) fl MCH 30.5 (27.0-31.0) pg MCHC 33.3 (33.0-37.0) g/dL RDW 16.0 H (11.5-14.5) % Plt Count 175 (130-400) K/uL MPV 11.0 (7.2-11.7) fl Neut % (Auto) 71.6 (50.0-75.0) % Lymph % (Auto) 13.8 L (20.0-40.0) % Labette % (Auto) 7.0 (0.0-10.0) % Eos % (Auto) 5.3 H (0.0-4.0) % Baso % (Auto) 2.3 H (0.0-2.0) % Neut # 3.9 (1.8-7.0) K/uL Lymph # 0.8 L (1.0-4.3) K/uL Labette # 0.4 (0.0-0.8) K/uL Eos # 0.3 (0.0-0.7) K/uL Baso # 0.1 (0.0-0.2) K/uL pCO2 (35-45) mm/Hg pO2 (80-100) mm/Hg HCO3 (21-28) mmol/L ABG pH (7.35-7.45) ABG Total CO2 (22-28) mmol/L ABG O2 Saturation (95-98) % ABG Base Excess (-2.0-3.0) mmol/L Andry Test ABG Potassium (3.6-5.2) mmol/L A-a O2 Difference mm/Hg Glucose (75-110) mg/dL Lactate (0.7-2.1) mmol/L Vent Mode FiO2 % PEEP Pressure Support Sodium (132-148) mmol/l Potassium (3.6-5.0) MMOL/L Chloride (98-107) mmol/L Carbon Dioxide (22-30) mmol/L Anion Gap (10-20) BUN (9-20) mg/dl Creatinine (0.8-1.5) mg/dl Est GFR ( Amer) Est GFR (Non-Af Amer) POC Glucose (mg/dL) 203 H 208 H (65-110) mg/dL Random Glucose (75-110) mg/dL Calcium (8.4-10.2) mg/dL Phosphorus (2.5-4.5) mg/dl Magnesium (1.6-2.3) MG/DL Total Bilirubin (0.2-1.3) mg/dl AST (17-59) U/L ALT (21-72) U/L Alkaline Phosphatase (38-126) U/L Total Protein (6.3-8.2) G/DL Albumin (3.5-5.0) g/dL Globulin (2.2-3.9) gm/dL Albumin/Globulin Ratio (1.0-2.1) Arterial Blood Potassium (3.6-5.2) mmol/L Ur Random Creatinine mg/dL Ur Random Sodium mmol/L 07/13/17 07/13/17 Range/Units 11:10 08:37 WBC (4.8-10.8) K/uL RBC (4.40-5.90) Mil/uL Hgb (12.0-18.0) g/dL Hct (35.0-51.0) % MCV (80.0-94.0) fl MCH (27.0-31.0) pg MCHC (33.0-37.0) g/dL RDW (11.5-14.5) % Plt Count (130-400) K/uL MPV (7.2-11.7) fl Neut % (Auto) (50.0-75.0) % Lymph % (Auto) (20.0-40.0) % Labette % (Auto) (0.0-10.0) % Eos % (Auto) (0.0-4.0) % Baso % (Auto) (0.0-2.0) % Neut # (1.8-7.0) K/uL Lymph # (1.0-4.3) K/uL Labette # (0.0-0.8) K/uL Eos # (0.0-0.7) K/uL Baso # (0.0-0.2) K/uL pCO2 (35-45) mm/Hg pO2 (80-100) mm/Hg HCO3 (21-28) mmol/L ABG pH (7.35-7.45) ABG Total CO2 (22-28) mmol/L ABG O2 Saturation (95-98) % ABG Base Excess (-2.0-3.0) mmol/L Andry Test ABG Potassium (3.6-5.2) mmol/L A-a O2 Difference mm/Hg Glucose (75-110) mg/dL Lactate (0.7-2.1) mmol/L Vent Mode FiO2 % PEEP Pressure Support Sodium (132-148) mmol/l Potassium (3.6-5.0) MMOL/L Chloride (98-107) mmol/L Carbon Dioxide (22-30) mmol/L Anion Gap (10-20) BUN (9-20) mg/dl Creatinine (0.8-1.5) mg/dl Est GFR ( Amer) Est GFR (Non-Af Amer) POC Glucose (mg/dL) 174 H (65-110) mg/dL Random Glucose (75-110) mg/dL Calcium (8.4-10.2) mg/dL Phosphorus (2.5-4.5) mg/dl Magnesium (1.6-2.3) MG/DL Total Bilirubin (0.2-1.3) mg/dl AST (17-59) U/L ALT (21-72) U/L Alkaline Phosphatase (38-126) U/L Total Protein (6.3-8.2) G/DL Albumin (3.5-5.0) g/dL Globulin (2.2-3.9) gm/dL Albumin/Globulin Ratio (1.0-2.1) Arterial Blood Potassium (3.6-5.2) mmol/L Ur Random Creatinine 49.0 mg/dL Ur Random Sodium 36 mmol/L Laboratory Results - last 24 hr 07/13/17 07/13/17 07/13/17 08:37 11:10 17:00 WBC RBC Hgb Hct MCV MCH MCHC RDW Plt Count MPV Neut % (Auto) Lymph % (Auto) Labette % (Auto) Eos % (Auto) Baso % (Auto) Neut # Lymph # Labette # Eos # Baso # pCO2 pO2 HCO3 ABG pH ABG Total CO2 ABG O2 Saturation ABG Base Excess Andry Test ABG Potassium A-a O2 Difference Glucose Lactate Vent Mode FiO2 PEEP Pressure Support Sodium Potassium Chloride Carbon Dioxide Anion Gap BUN Creatinine Est GFR ( Amer) Est GFR (Non-Af Amer) POC Glucose (mg/dL) 174 H 208 H Random Glucose Calcium Phosphorus Magnesium Total Bilirubin AST ALT Alkaline Phosphatase Total Protein Albumin Globulin Albumin/Globulin Ratio Arterial Blood Potassium Ur Random Creatinine 49.0 Ur Random Sodium 36 07/13/17 07/14/17 07/14/17 21:26 04:20 04:20 WBC 5.4 RBC 3.07 L Hgb 9.4 L Hct 28.1 L MCV 91.8 MCH 30.5 MCHC 33.3 RDW 16.0 H Plt Count 175 MPV 11.0 Neut % (Auto) 71.6 Lymph % (Auto) 13.8 L Labette % (Auto) 7.0 Eos % (Auto) 5.3 H Baso % (Auto) 2.3 H Neut # 3.9 Lymph # 0.8 L Labette # 0.4 Eos # 0.3 Baso # 0.1 pCO2 pO2 HCO3 ABG pH ABG Total CO2 ABG O2 Saturation ABG Base Excess Andry Test ABG Potassium A-a O2 Difference Glucose Lactate Vent Mode FiO2 PEEP Pressure Support Sodium 145 Potassium 3.4 L Chloride 111 H Carbon Dioxide 28 Anion Gap 9 L BUN 46 H Creatinine 2.0 H Est GFR ( Amer) 41 Est GFR (Non-Af Amer) 34 POC Glucose (mg/dL) 203 H Random Glucose 240 H Calcium 9.6 Phosphorus 3.4 Magnesium 2.1 Total Bilirubin 0.3 AST 32 ALT 42 Alkaline Phosphatase 226 H Total Protein 5.3 L Albumin 2.5 L Globulin 2.9 Albumin/Globulin Ratio 0.9 L Arterial Blood Potassium Ur Random Creatinine Ur Random Sodium 07/14/17 07/14/17 04:26 05:03 WBC RBC Hgb Hct MCV MCH MCHC RDW Plt Count MPV Neut % (Auto) Lymph % (Auto) Labette % (Auto) Eos % (Auto) Baso % (Auto) Neut # Lymph # Labette # Eos # Baso # pCO2 48 H pO2 106 H HCO3 25.7 ABG pH 7.36 ABG Total CO2 28.6 H ABG O2 Saturation 99.4 H ABG Base Excess 1.0 Andry Test Yes ABG Potassium 3.3 L A-a O2 Difference 48.0 Glucose 247 H Lactate 0.7 Vent Mode Cpap FiO2 30.0 PEEP 5 Pressure Support 12 Sodium 143.0 Potassium Chloride 115.0 H Carbon Dioxide Anion Gap BUN Creatinine Est GFR ( Amer) Est GFR (Non-Af Amer) POC Glucose (mg/dL) 257 H Random Glucose Calcium Phosphorus Magnesium Total Bilirubin AST ALT Alkaline Phosphatase Total Protein Albumin Globulin Albumin/Globulin Ratio Arterial Blood Potassium 3.3 L Ur Random Creatinine Ur Random Sodium Fingerstick Blood Sugar Results: 257 Assessment/Plan - Assessment and Plan (Free Text) Plan: 66 yo M w/ pmh of htn, dm, CKD, w/ 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, monoclonal gammopathy, recurrent L pleural effusion, admitted with hypothermia, CHINTAN -HTN: controlled, on hydralazine PRN -Hypoxic respiratory failure: tolerating CPAP trial overnight, extubate post ng meds today -s/p cardiac arrest: off pressors, stable HR and BP -b/l chest tube, if chest tube output <100 consider talc infusion for pleurodesis -COPD: continue bronchodilators -CKD stage III-IV: nephrology follow up -AMS: resolved, antiplatelets started by neurology, fecal occult blood neg, s/p recent blood transfusion -Sepsis: RLL infiltrate, continue abx as per ID, f/u sputum culture and de- escalate -Chronic diastolic heart failure: continue current heart medications, monitor BP - DM 2, BGM q6hrs, ISS -Anemia of chronic disease: monitor cbc to keep hb >8 -continue dvt/pud ppx: protonix/scds -continue tube feeds to avoid malnutrition -replace electrolytes -Surgery resident informed ICU team that patient may not be getting pleurodesis and there are no plans for next 2-3 days. Surgery team OK with extubation and suggested that talc infusion may be easier if patient is extubated. cc time 55 minutes - Date & Time Date: 07/14/17 Time: 16:11
[2017-07-14] MEDS ORDERED: Dextrose 50% SYRINGE Inj (50 ml) IVP PRN (14:52)
[2017-07-14] MEDS ORDERED: Albuterol-Ipratrop 3 mg / 0.5 (3 ml) UD INH PRN (15:00)
[2017-07-14 15:58] LABS: ABG ALLEN TEST YES; ARTERIAL BLOOD GAS HCO3 27.1 mmol/L (21-28); ARTERIAL BLOOD GAS O2 SAT 99.4 % (95-98); ARTERIAL BLOOD GAS PCO2 35 mm/Hg (35-45); ARTERIAL BLOOD GAS PH 7.48 (7.35-7.45); ARTERIAL BLOOD GAS PO2 110 mm/Hg (80-100); ARTERIAL BLOOD GAS TCO2 27.2 mmol/L (22-28)
--- NOTE | 2017-07-14 16:45 | PN ---
DATE: ENDOCRINOLOGY FOLLOWUP NOTE LOCATION: ICU, room 433. SUBJECTIVE: This is a 66-year-old male with recent acute respiratory failure with underlying pleural effusion and is now being followed closely for metabolic management. His glycemic levels are fluctuating but improved and have ranged from 180-257 mg/dL. The latest chemistries showed a BUN of 46, sodium 145, potassium 3.4, chloride 111, CO2 of 28, glucose 240, and creatinine 2.0. So, at this time, we will continue the same oral hypoglycemic drug therapy as given with glipizide given as 10 mg b.i.d. as ordered. He also remains clinically euthyroid with very early evidence of hypothyroidism related to underlying autoimmune thyroiditis. We will continue the same levothyroxine given as 50 mcg daily as ordered. We will titrate incremental as indicated to optimize metabolic control. We will follow. Bettina Mann MD
--- NOTE | 2017-07-14 18:27 | CP.PCM.PN ---
Subjective - Date & Time of Evaluation Date of Evaluation: 07/14/17 Time of Evaluation: 18:25 - Subjective Subjective: 66 yo M w/ pmh of htn, dm, CKD IIIB w/ nephrotic syndrome (secondary to DM nephropathy), recurrent L pleural effusion, initially admitted with hypothermia , CHINTAN, recurrent pleural effusion; now s/p b/l chest tube placement last week; Extubated today; reports some shortness of breath; otherwise is tolerating PO liquids and meds; Objective - Vital Signs/Intake and Output Vital Signs (last 24 hours): Temp Pulse Resp BP Pulse Ox 97.8 F 79 21 164/59 H 100 07/14/17 16:00 07/14/17 16:00 07/14/17 16:00 07/14/17 16:00 07/14/17 16:00 Intake and Output: 07/14/17 07/14/17 06:59 18:59 Intake Total 940 851 Output Total 730 Balance 210 851 - Medications Medications: Current Medications Albuterol/Ipratropium (Duoneb 3 Mg/0.5 Mg (3 Ml) Ud) 3 ml INH RQ6 PRN PRN Reason: Shortness of Breath Amlodipine Besylate (Norvasc) 10 mg PO DAILY [facility] Last Admin: 07/14/17 08:14 Dose: 10 mg Aspirin (Ecotrin) 81 mg PO DAILY [facility] Last Admin: 07/14/17 09:21 Dose: 81 mg Bacitracin (Bacitracin Oint) 1 applic TOP DAILY [facility] Last Admin: 07/14/17 08:13 Dose: 1 applic Calcium Acetate (Phoslo) 2,001 mg PO 0830,1200,1830 [facility] Last Admin: 07/14/17 12:26 Dose: 2,001 mg Clopidogrel Bisulfate (Plavix) 75 mg PO DAILY [facility] Last Admin: 07/14/17 09:21 Dose: 75 mg Dextrose (Dextrose 50% Inj) 0 ml IV STAT PRN; Protocol PRN Reason: Hypoglycemia Protocol Dextrose (Glutose 15) 0 gm PO ONCE PRN; Protocol PRN Reason: Hypoglycemia Protocol Dextrose (Dextrose 50% Inj) 50 ml IVP Q1H PRN PRN Reason: Hypoglycemia Epoetin Roel (Procrit) 14,000 unit SC MWF [facility] Last Admin: 07/14/17 10:41 Dose: 14,000 unit Fluconazole (Diflucan) 200 mg PO DAILY [facility] PRN Reason: Protocol Last Admin: 07/14/17 08:13 Dose: 200 mg Glucagon (Glucagen Diagnostic Kit) 0 mg IM STAT PRN; Protocol PRN Reason: Hypoglycemia Protocol Hydralazine HCl (Apresoline) 10 mg IV Q6 PRN PRN Reason: Systolic Blood Pressure Last Admin: 07/14/17 14:51 Dose: 10 mg Hydralazine HCl (Apresoline) 50 mg PO Q8 [facility] Last Admin: 07/14/17 16:21 Dose: 50 mg Levetiracetam 500 mg/ Sodium (Chloride) 105 mls @ 210 mls/hr IVPB Q12 [facility] Last Admin: 07/14/17 10:40 Dose: 210 mls/hr Cefepime HCl 1 gm/ Sodium (Chloride) 50 mls @ 50 mls/hr IVPB DAILY [facility] PRN Reason: Protocol Last Admin: 07/14/17 08:13 Dose: 50 mls/hr Insulin Human Lispro (Humalog) 0 units SC Q6H [facility] PRN Reason: Protocol Last Admin: 07/14/17 11:26 Dose: Not Given Levothyroxine Sodium (Synthroid) 50 mcg PO DAILY@0630 [facility] Last Admin: 07/14/17 06:27 Dose: 50 mcg Lisinopril (Zestril) 10 mg PO ONCE ONE Stop: 07/15/17 18:18 Lisinopril (Zestril) 30 mg PO DAILY [facility] Metoprolol Tartrate (Lopressor) 5 mg IVP Q6 [facility] Last Admin: 07/14/17 16:21 Dose: 5 mg Pantoprazole Sodium (Protonix Inj) 40 mg IVP Q12 [facility] Last Admin: 07/14/17 08:15 Dose: 40 mg Sodium Bicarbonate (Sodium Bicarbonate Tab) 1,300 mg PO Q8 [facility] Last Admin: 07/02/17 16:23 Dose: 1,300 mg Thiamine HCl (Vitamin B1 Tab) 100 mg PO DAILY [facility] - Labs Labs: 07/14/17 04:20 07/14/17 04:20 PT 13.4 Seconds (9.8-13.1) H 07/08/17 12:50 INR 1.2 (0.9-1.2) 07/08/17 12:50 APTT 30.8 Seconds (25.6-37.1) 07/08/17 12:50 - Constitutional Appears: No Acute Distress - Eye Exam Eye Exam: absent: Scleral icterus - ENT Exam ENT Exam: Mucous Membranes Moist - Respiratory Exam Respiratory Exam: Clear to Ausculation Bilateral. absent: Respiratory Distress - Cardiovascular Exam Cardiovascular Exam: RRR, +S1, +S2 - GI/Abdominal Exam GI & Abdominal Exam: Soft. absent: Tenderness Additional comments: mildly distended; - Extremities Exam Additional comments: marked edema of dependent areas; otherwise, arm and lower leg edema improved; - Neurological Exam Neurological Exam: Alert, Awake Additional comments: following commands; - Psychiatric Exam Psychiatric exam: absent: Agitated - Skin Skin Exam: Warm. absent: Cyanosis Assessment and Plan (1) Acute renal failure Assessment & Plan: CHINTAN on CKD; ATN resolving; non-oliguric; goal now is to avoid any nephrotoxic insults and sudden drops of BP; Status: Acute (2) Nephrotic syndrome Assessment & Plan: Started on lisinopril, increasing dose to 30 mg; will start cardizem for anti- proteinuric effect; Status: Chronic (3) Pleural effusion Assessment & Plan: L chest tube with no further drainage, R with 340 cc over 24 hrs; awaiting R pleural fluid cytology; Status: Chronic (4) Hypertensive CKD (chronic kidney disease) Assessment & Plan: BP uncontrolled; hydralazine increased to 50 mg q8h; lisinopril being increased gradually, cardizem to be started also; Status: Acute (5) Chronic kidney disease, stage 3 (moderate) Assessment & Plan: Serum creatinine now down around baseline (~2.0); goal now is to control proteinuria and gradual BP control, see above; holding phoslo until full diet restarted (phos currently controlled); Status: Chronic (6) Hypothermia Status: Acute (7) Altered mental status Status: Acute (8) SIRS (systemic inflammatory response syndrome) Status: Acute (9) Anemia Assessment & Plan: Hgb improving; continue EPO 22156 u qMWF; Status: Chronic (10) Monoclonal gammopathy Status: Chronic
[2017-07-15] MEDS: Insulin Lispro (humaLOG) 100 Units/ml Inj SC SCH ×4 (04:08→22:15)
[2017-07-15] MEDS: Metoprolol 1 mg/ml Inj IVP SCH ×4 (04:09→22:41)
[2017-07-15 05:48] LABS: BASO # 0.1 K/uL (0.0-0.2); BASO % 2.7 % (0.0-2.0); EOS # 0.3 K/uL (0.0-0.7); EOS % 5.6 % (0.0-4.0); HEMOGLOBIN 9.3 g/dL (12.0-18.0); LYMPH # 0.8 K/uL (1.0-4.3); LYMPH % 16.6 % (20.0-40.0); MEAN CELL VOLUME 92.4 fl (80.0-94.0); MEAN CORPUSCULAR HEMOGLOBIN 30.2 pg (27.0-31.0); MEAN CORPUSCULAR HGB CONC 32.7 g/dL (33.0-37.0); MEAN PLATELET VOLUME 10.7 fl (7.2-11.7); MONO # 0.4 K/uL (0.0-0.8); MONO % 7.9 % (0.0-10.0); NEUT # 3.3 K/uL (1.8-7.0); NEUT % 67.2 % (50.0-75.0); NRBC % 1.4 % (0.0-0.0); RBC 3.07 Mil/uL (4.40-5.90); RED CELL DISTRIBUTION WIDTH 16.4 % (11.5-14.5)
[2017-07-15 05:59] LABS: ALB/GLOB RATIO 0.8 (1.0-2.1); ALBUMIN 2.3 g/dL (3.5-5.0); CALCIUM 9.6 mg/dL (8.4-10.2)
[2017-07-15] MEDS: Levothyroxine 50 MCG TAB PO SCH (06:43)
--- NOTE | 2017-07-15 08:03 | RAD ---
PROCEDURE: CHEST RADIOGRAPH, 1 VIEW HISTORY: intubated, chest tube COMPARISON: Frontal chest radiograph 07/14/2017. FINDINGS: The endotracheal and nasogastric tubes appear to have been removed. Left central venous line is unchanged position as well as bilateral chest tubes. LUNGS: Underlying left basilar airspace disease remains difficult to exclude. Borderline patchy density right base. PLEURA: Mild left pleural effusions unchanged with none identified at the right. No pneumothorax bilaterally. CARDIOVASCULAR: Cardiac silhouette appears stable. No definite pulmonary vascular derangement. OSSEOUS STRUCTURES: No significant abnormalities. VISUALIZED UPPER ABDOMEN: Normal. OTHER FINDINGS: None. IMPRESSION: Stable mild left pleural effusion unchanged with underlying airspace disease not excluded the left base. No right pleural effusion. Trace patchy density appears renal developing in the right base. Patient appears to be extubated with nasogastric tube apparently removed as well.
[2017-07-15] MEDS: Cefepime 1 GM in Sodium Chloride 0.9% 50 ML IVPB SCH (08:40)
[2017-07-15] MEDS: Bacitracin OINT 15GM TOP SCH (08:51)
--- NOTE | 2017-07-15 08:53 | CP.PCM.PN ---
Subjective - Date & Time of Evaluation Date of Evaluation: 07/15/17 Time of Evaluation: 07:10 - Subjective Subjective: Patient seen and examined bedside AAOx2 (not place). Patient was extubated yesterday, able to follow commands, using O2 NC. He denies chest pain, SOB, n/v/ abd pain, diarrhea. Patient [place] in time, [place] B/L chest tube in place, left side no output, right side 180 ml. Salazar yellow urine 200 ml. Objective - Vital Signs/Intake and Output Vital Signs (last 24 hours): Temp Pulse Resp BP Pulse Ox 98.5 F 75 18 169/67 H 100 07/15/17 08:00 07/15/17 08:00 07/15/17 08:00 07/15/17 08:00 07/15/17 08:00 Intake and Output: 07/15/17 07/15/17 06:59 18:59 Intake Total 0 Output Total 1130 Balance -1130 - Medications Medications: Current Medications Albuterol/Ipratropium (Duoneb 3 Mg/0.5 Mg (3 Ml) Ud) 3 ml INH RQ6 PRN PRN Reason: Shortness of Breath Amlodipine Besylate (Norvasc) 10 mg PO DAILY [facility] Last Admin: 07/14/17 08:14 Dose: 10 mg Aspirin (Ecotrin) 81 mg PO DAILY [facility] Last Admin: 07/14/17 09:21 Dose: 81 mg Bacitracin (Bacitracin Oint) 1 applic TOP DAILY [facility] Last Admin: 07/14/17 08:13 Dose: 1 applic Calcium Acetate (Phoslo) 2,001 mg PO 0830,1200,1830 [facility] Last Admin: 07/14/17 12:26 Dose: 2,001 mg Clopidogrel Bisulfate (Plavix) 75 mg PO DAILY [facility] Last Admin: 07/14/17 09:21 Dose: 75 mg Dextrose (Dextrose 50% Inj) 0 ml IV STAT PRN; Protocol PRN Reason: Hypoglycemia Protocol Dextrose (Glutose 15) 0 gm PO ONCE PRN; Protocol PRN Reason: Hypoglycemia Protocol Dextrose (Dextrose 50% Inj) 50 ml IVP Q1H PRN PRN Reason: Hypoglycemia Epoetin Roel (Procrit) 14,000 unit SC MWF [facility] Last Admin: 07/14/17 10:41 Dose: 14,000 unit Fluconazole (Diflucan) 200 mg PO DAILY [facility] PRN Reason: Protocol Last Admin: 07/14/17 08:13 Dose: 200 mg Glucagon (Glucagen Diagnostic Kit) 0 mg IM STAT PRN; Protocol PRN Reason: Hypoglycemia Protocol Hydralazine HCl (Apresoline) 50 mg PO Q8 [facility] Last Admin: 07/15/17 01:31 Dose: Not Given Hydralazine HCl (Apresoline) 10 mg IV Q6 PRN PRN Reason: SBP > 170 Levetiracetam 500 mg/ Sodium (Chloride) 105 mls @ 210 mls/hr IVPB Q12 [facility] Last Admin: 07/14/17 21:05 Dose: 210 mls/hr Cefepime HCl 1 gm/ Sodium (Chloride) 50 mls @ 50 mls/hr IVPB DAILY [facility] PRN Reason: Protocol Last Admin: 07/14/17 08:13 Dose: 50 mls/hr Insulin Human Lispro (Humalog) 0 units SC Q6H [facility] PRN Reason: Protocol Last Admin: 07/15/17 04:08 Dose: Not Given Levothyroxine Sodium (Synthroid) 50 mcg PO DAILY@0630 [facility] Last Admin: 07/15/17 06:43 Dose: 50 mcg Lisinopril (Zestril) 40 mg PO DAILY [facility] Metoprolol Tartrate (Lopressor) 5 mg IVP Q6 [facility] Last Admin: 07/15/17 04:09 Dose: 5 mg Pantoprazole Sodium (Protonix Inj) 40 mg IVP Q12 [facility] Last Admin: 07/14/17 21:06 Dose: 40 mg Sodium Bicarbonate (Sodium Bicarbonate Tab) 1,300 mg PO Q8 [facility] Last Admin: 07/02/17 16:23 Dose: 1,300 mg Thiamine HCl (Vitamin B1 Tab) 100 mg PO DAILY [facility] - Labs Labs: 07/15/17 05:37 07/15/17 05:37 PT 13.4 Seconds (9.8-13.1) H 07/08/17 12:50 INR 1.2 (0.9-1.2) 07/08/17 12:50 APTT 30.8 Seconds (25.6-37.1) 07/08/17 12:50 - Constitutional Appears: Non-toxic, No Acute Distress - Head Exam Head Exam: ATRAUMATIC, NORMOCEPHALIC - Eye Exam Eye Exam: Normal appearance - ENT Exam ENT Exam: Mucous Membranes Moist - Neck Exam Neck Exam: Normal Inspection - Respiratory Exam Respiratory Exam: Decreased Breath Sounds. absent: Rales, Rhonchi, Wheezes Additional comments: b/l bibasal. B/L chest tubes. left side triple lumen subclavian catheter. - Cardiovascular Exam Cardiovascular Exam: REGULAR RHYTHM, +S1, +S2 - GI/Abdominal Exam GI & Abdominal Exam: Soft, Normal Bowel Sounds. absent: Tenderness - Extremities Exam Extremities Exam: Normal Inspection. absent: Pedal Edema Additional comments: B/L hands and forearm edema improving 1+. left hand abrasion with scab formation - Neurological Exam Neurological Exam: Alert, Awake, Oriented x3 - Psychiatric Exam Psychiatric exam: Normal Affect, Normal Mood - Skin Additional comments: left hand abrasion with scab formation Assessment and Plan - Assessment and Plan (Free Text) Plan: 66yo M w/ PMHx HTN, DM, DM nephropathy, monoclonal gammopathy, recurrent L pleural effusion admitted for sepsis, Hypothermia, CHINTAN on CKD currently intubated and DNR code status. 1) Acute Respiratory Failure -resolved -extubated yesterday -sputum cx ross Alb fungus cx. , diflucan PO, mycamine day 14 2) Recurrent Left Pleural effusion, Transudate -Pulmonology consult appreciated: no benefit for bronchoscopy or lung biopsy -Cardiothoracic surgery consult appreciated, considering talc pleurodesis - s/p Chest tube placement POD#7 left side -s/p chest tube placement POD#5 right side -quantiferon gold:indeterminate, AFB x4 neg -pleural cx with RBC 3) HAP -improved -c/w cefepime day # 20 4) DM nephropathy -Kidney biopsy 12: Diabetic nephropathy, nodular glomerulosclerosis, associated with aprox 40 % globally sclerosed glomeruli( calss III), 10-15 % segmentally sclerosed glomeruli, docal moderate interstitial fibrosis and mod vascular sclerosis, including marked hyaline arteriolosclerosis.NO EVIDENCE OF MONOCLONAL LIGHT OR HEAVY CHAIN-RELATED RENAL DISEASE. -Nephro consult appreciated: Lisinopril 30 mg, Hydralazine 50 Q8h -Renal duplex: no renal vein thrombosis 5) CHINTAN on CKD stage 4 w/ new onset of ATN - Nephorologist consult appreciated -no steroids, no Hd -lisinopril increased from 30 mg daily 6) Thrombocytopenia -HemOnc consult appreciated 7) Hypothyroidism, subclinical -Econdrinologist consult appreciated -c/w levothryroxin 8) Hyperprolactinemia -Prolactin trending down -Endocrionologist consult suggested -MRI brain:no inracraneal hemorrhage, chronic lacunar infarct b/l cerebral, changes in dali haydee represent chronic ischemia or sequela of osmotic myelonilolysis not excluded.chronic b/l basal nuclei lacunar infarcts, mastoid ppasification secondary to intubation 9) Pressure Ulcer and TDI -resolved 10) pEF CHF -Echo 05/31/17 normal EF 60-65% -c/w labetalol, hydralazine 50 mg Q8h -lisinopril 30 mg daily 11) DM 2 -SSI 12) HTN - Hydralazine 50 Q8. To keep systolic BP 150 - Metropolol Tartrate 5 mg IV deb q 6h -lisinopril 30mg daily 13) Anemia -secondary to CKD -s/p transfucion 4u pRBC -C/W procrit 14) DVT prophylaxis -Lovenox 40 mg sc (Cr Cl 35 ml) 15) GI prophylaxis -Pantoprazol 40 mg IV
--- NOTE | 2017-07-15 08:54 | PN ---
DATE: SUBJECTIVE: This is a 66-year-old male with acute respiratory failure and now being followed up closely for metabolic management. His glycemic levels are fluctuating, much improved at this time. The glucose levels are ranging from mg/dL. The latest chemistry showed a BUN of 46, sodium 145, potassium 3.4, chloride , CO2 28, glucose 240 and creatinine 2.0. His thyroid studies have also remained near optimal at this time T4 is 5.58 and the TSH of 5.55 and after repeat, . So at this time, we will continue the same levothyroxine, given at 50 mcg once daily as ordered. We will also continue the glipizide given as 10 mg b.i.d. as ordered. We will titrate incremental as indicated to optimize metabolic control. We will follow. Bettina Mann MD
--- NOTE | 2017-07-15 09:19 | CP.PCM.PN ---
Subjective - Date & Time of Evaluation Date of Evaluation: 07/15/17 Time of Evaluation: 09:17 - Subjective Subjective: CT Surgery Note for Dr. Gannon This patient was seen and examined this AM at bedside s/p extubation. He is alert and oriented to self. He denies any chest pain or SOB. Left chest tube 0cc output right CT 180cc output Objective - Vital Signs/Intake and Output Vital Signs (last 24 hours): Temp Pulse Resp BP Pulse Ox 98.5 F 74 18 169/67 H 100 07/15/17 08:00 07/15/17 08:55 07/15/17 08:00 07/15/17 08:55 07/15/17 08:00 Intake and Output: 07/15/17 07/15/17 06:59 18:59 Intake Total 0 Output Total 1130 Balance -1130 - Medications Medications: Current Medications Albuterol/Ipratropium (Duoneb 3 Mg/0.5 Mg (3 Ml) Ud) 3 ml INH RQ6 PRN PRN Reason: Shortness of Breath Amlodipine Besylate (Norvasc) 10 mg PO DAILY [facility] Last Admin: 07/15/17 08:54 Dose: 10 mg Aspirin (Ecotrin) 81 mg PO DAILY [facility] Last Admin: 07/14/17 09:21 Dose: 81 mg Bacitracin (Bacitracin Oint) 1 applic TOP DAILY [facility] Last Admin: 07/15/17 08:51 Dose: 1 applic Calcium Acetate (Phoslo) 2,001 mg PO 0830,1200,1830 [facility] Last Admin: 07/14/17 12:26 Dose: 2,001 mg Clopidogrel Bisulfate (Plavix) 75 mg PO DAILY [facility] Last Admin: 07/15/17 08:54 Dose: 75 mg Dextrose (Dextrose 50% Inj) 0 ml IV STAT PRN; Protocol PRN Reason: Hypoglycemia Protocol Dextrose (Glutose 15) 0 gm PO ONCE PRN; Protocol PRN Reason: Hypoglycemia Protocol Dextrose (Dextrose 50% Inj) 50 ml IVP Q1H PRN PRN Reason: Hypoglycemia Epoetin Roel (Procrit) 14,000 unit SC MWF [facility] Last Admin: 07/14/17 10:41 Dose: 14,000 unit Fluconazole (Diflucan) 200 mg PO DAILY [facility] PRN Reason: Protocol Last Admin: 07/15/17 08:53 Dose: 200 mg Glucagon (Glucagen Diagnostic Kit) 0 mg IM STAT PRN; Protocol PRN Reason: Hypoglycemia Protocol Hydralazine HCl (Apresoline) 50 mg PO Q8 [facility] Last Admin: 07/15/17 08:51 Dose: 50 mg Hydralazine HCl (Apresoline) 10 mg IV Q6 PRN PRN Reason: SBP > 170 Levetiracetam 500 mg/ Sodium (Chloride) 105 mls @ 210 mls/hr IVPB Q12 [facility] Last Admin: 07/14/17 21:05 Dose: 210 mls/hr Cefepime HCl 1 gm/ Sodium (Chloride) 50 mls @ 50 mls/hr IVPB DAILY [facility] PRN Reason: Protocol Last Admin: 07/14/17 08:13 Dose: 50 mls/hr Insulin Human Lispro (Humalog) 0 units SC Q6H [facility] PRN Reason: Protocol Last Admin: 07/15/17 04:08 Dose: Not Given Levothyroxine Sodium (Synthroid) 50 mcg PO DAILY@0630 [facility] Last Admin: 07/15/17 06:43 Dose: 50 mcg Lisinopril (Zestril) 40 mg PO DAILY [facility] Last Admin: 07/15/17 08:55 Dose: 40 mg Metoprolol Tartrate (Lopressor) 5 mg IVP Q6 [facility] Last Admin: 07/15/17 04:09 Dose: 5 mg Pantoprazole Sodium (Protonix Inj) 40 mg IVP Q12 [facility] Last Admin: 07/15/17 08:54 Dose: 40 mg Sodium Bicarbonate (Sodium Bicarbonate Tab) 1,300 mg PO Q8 [facility] Last Admin: 07/02/17 16:23 Dose: 1,300 mg Thiamine HCl (Vitamin B1 Tab) 100 mg PO DAILY [facility] Last Admin: 07/15/17 08:54 Dose: 100 mg - Labs Labs: 07/15/17 05:37 07/15/17 05:37 PT 13.4 Seconds (9.8-13.1) H 07/08/17 12:50 INR 1.2 (0.9-1.2) 07/08/17 12:50 APTT 30.8 Seconds (25.6-37.1) 07/08/17 12:50 - Constitutional Appears: Non-toxic, No Acute Distress - Head Exam Head Exam: ATRAUMATIC, NORMOCEPHALIC - Eye Exam Eye Exam: Normal appearance - ENT Exam ENT Exam: Mucous Membranes Moist - Respiratory Exam Respiratory Exam: NORMAL BREATHING PATTERN - Cardiovascular Exam Cardiovascular Exam: +S1, +S2 - GI/Abdominal Exam GI & Abdominal Exam: Soft. absent: Tenderness - Neurological Exam Neurological Exam: Alert, Awake - Psychiatric Exam Psychiatric exam: Normal Affect, Normal Mood - Skin Skin Exam: Dry, Intact Assessment and Plan - Assessment and Plan (Free Text) Assessment: 66 M with bilateral pleural effusions s/p bilateral chest tubes, respiratory failure, s/p cardiac arrest, and nephrotic syndrome -Chest tubes to water seal will continue to monitor output -Patient stable -CT chest today -Discussed with Dr Jagdeep West PGY2
--- NOTE | 2017-07-15 09:30 | CP.PCM.PN ---
Subjective - Date & Time of Evaluation Date of Evaluation: 07/15/17 Time of Evaluation: 09:30 - Subjective Subjective: EXTUBATED AWAKE/ALERT AND ORIENTED X 3 NO APPARENT DISTRESS Objective - Vital Signs/Intake and Output Vital Signs (last 24 hours): Temp Pulse Resp BP Pulse Ox 98.5 F 74 18 169/67 H 100 07/15/17 08:00 07/15/17 08:55 07/15/17 08:00 07/15/17 08:55 07/15/17 08:00 Intake and Output: 07/15/17 07/15/17 06:59 18:59 Intake Total 0 Output Total 1130 Balance -1130 - Medications Medications: Current Medications Albuterol/Ipratropium (Duoneb 3 Mg/0.5 Mg (3 Ml) Ud) 3 ml INH RQ6 PRN PRN Reason: Shortness of Breath Amlodipine Besylate (Norvasc) 10 mg PO DAILY [facility] Last Admin: 07/15/17 08:54 Dose: 10 mg Aspirin (Ecotrin) 81 mg PO DAILY [facility] Last Admin: 07/14/17 09:21 Dose: 81 mg Bacitracin (Bacitracin Oint) 1 applic TOP DAILY [facility] Last Admin: 07/15/17 08:51 Dose: 1 applic Calcium Acetate (Phoslo) 2,001 mg PO 0830,1200,1830 [facility] Last Admin: 07/14/17 12:26 Dose: 2,001 mg Clopidogrel Bisulfate (Plavix) 75 mg PO DAILY [facility] Last Admin: 07/15/17 08:54 Dose: 75 mg Dextrose (Dextrose 50% Inj) 0 ml IV STAT PRN; Protocol PRN Reason: Hypoglycemia Protocol Dextrose (Glutose 15) 0 gm PO ONCE PRN; Protocol PRN Reason: Hypoglycemia Protocol Dextrose (Dextrose 50% Inj) 50 ml IVP Q1H PRN PRN Reason: Hypoglycemia Epoetin Roel (Procrit) 14,000 unit SC MWF [facility] Last Admin: 07/14/17 10:41 Dose: 14,000 unit Fluconazole (Diflucan) 200 mg PO DAILY [facility] PRN Reason: Protocol Last Admin: 07/15/17 08:53 Dose: 200 mg Glucagon (Glucagen Diagnostic Kit) 0 mg IM STAT PRN; Protocol PRN Reason: Hypoglycemia Protocol Hydralazine HCl (Apresoline) 50 mg PO Q8 [facility] Last Admin: 07/15/17 08:51 Dose: 50 mg Hydralazine HCl (Apresoline) 10 mg IV Q6 PRN PRN Reason: SBP > 170 Levetiracetam 500 mg/ Sodium (Chloride) 105 mls @ 210 mls/hr IVPB Q12 [facility] Last Admin: 07/14/17 21:05 Dose: 210 mls/hr Cefepime HCl 1 gm/ Sodium (Chloride) 50 mls @ 50 mls/hr IVPB DAILY [facility] PRN Reason: Protocol Last Admin: 07/14/17 08:13 Dose: 50 mls/hr Insulin Human Lispro (Humalog) 0 units SC Q6H [facility] PRN Reason: Protocol Last Admin: 07/15/17 04:08 Dose: Not Given Levothyroxine Sodium (Synthroid) 50 mcg PO DAILY@0630 [facility] Last Admin: 07/15/17 06:43 Dose: 50 mcg Lisinopril (Zestril) 40 mg PO DAILY [facility] Last Admin: 07/15/17 08:55 Dose: 40 mg Metoprolol Tartrate (Lopressor) 5 mg IVP Q6 [facility] Last Admin: 07/15/17 04:09 Dose: 5 mg Pantoprazole Sodium (Protonix Inj) 40 mg IVP Q12 [facility] Last Admin: 07/15/17 08:54 Dose: 40 mg Sodium Bicarbonate (Sodium Bicarbonate Tab) 1,300 mg PO Q8 [facility] Last Admin: 07/02/17 16:23 Dose: 1,300 mg Thiamine HCl (Vitamin B1 Tab) 100 mg PO DAILY [facility] Last Admin: 07/15/17 08:54 Dose: 100 mg - Labs Labs: 07/15/17 05:37 07/15/17 05:37 PT 13.4 Seconds (9.8-13.1) H 07/08/17 12:50 INR 1.2 (0.9-1.2) 07/08/17 12:50 APTT 30.8 Seconds (25.6-37.1) 07/08/17 12:50 - Constitutional Appears: No Acute Distress - Head Exam Head Exam: ATRAUMATIC, NORMAL INSPECTION, NORMOCEPHALIC - Eye Exam Eye Exam: EOMI, Normal appearance, PERRL Pupil Exam: NORMAL ACCOMODATION, PERRL - ENT Exam ENT Exam: Mucous Membranes Moist, Normal Exam - Neck Exam Neck Exam: Full ROM, Normal Inspection. absent: Lymphadenopathy - Respiratory Exam Respiratory Exam: Decreased Breath Sounds, NORMAL BREATHING PATTERN - Cardiovascular Exam Cardiovascular Exam: REGULAR RHYTHM, +S1, +S2. absent: Murmur - GI/Abdominal Exam GI & Abdominal Exam: Soft, Normal Bowel Sounds. absent: Tenderness - Rectal Exam Rectal Exam: NORMAL INSPECTION - Extremities Exam Extremities Exam: Full ROM, Normal Capillary Refill, Normal Inspection. absent : Joint Swelling, Pedal Edema - Back Exam Back Exam: NORMAL INSPECTION - Neurological Exam Neurological Exam: Alert, Awake, CN II-XII Intact, Oriented x3 - Psychiatric Exam Psychiatric exam: Normal Affect, Normal Mood - Skin Skin Exam: Dry, Intact, Normal Color, Warm Assessment and Plan - Assessment and Plan (Free Text) Assessment: RESPIRATORY FAILURE-IMPROVED PLEURAL EFFUSIONS NEPHROTIC SYNDROME Plan: CONTINUE CURRENT RX
[2017-07-15] MEDS: levETIRAcetam 500 MG in Sodium Chloride 0.9% 100 ML IVPB SCH ×2 (09:44→22:00)
--- NOTE | 2017-07-15 10:43 | CP.CCUPN ---
<Lori Magana - Last Filed: 07/15/17 14:35> CCU Subjective - Physician Review Subjective (Free Text): Patient seen and examined this monring. Awake , responding to questions, following commands. No respiratory distress, on NC. Bilateral chest tubes in place to waterseal. Right ches tube with bloody output. Denies any pain, headache, dizziness, dyspnea, chest pain, abdominal pain, nausea/vomiting. Vital signs reviewed. BP 160-170s systolic. Labs: H.3, K+ 3.3, B-120s today Right chest tube output: 180cc Left chest tube output : 0cc Urine output: 775cc A/P: 66 year old male with PMH of HTN, DM, CKD, w/ nephrotic syndrome, monoclonal gammopathy, recurrent L pleural effusion, admitted with hypothermia, CHINTAN and altered mental status. Hypothermia/CHINTAN/AMS have resolved however patient then had subsequent respiratory failure requiring intubation thought to be 2' to persistent pleural effusions bilaterally vs PNA. He was extubated 07/14. However CT chest now revealed right chest tube is in lung parenchyma with associated pneumothorax. Dr. Gannon will take pt to OR this afternoon. Neuro: Awake, oriented to person and place, not time, Plavix as per neuro Cardiovascular: HTN: On Hydralazine 50mg q8, Lopressor 5mg q6, Norvasc 10mg, started on Zestril 40mg, has Hydralazine 10mg q 6 PRN Respiratory: COPD, recurrent pleural effusion. Has bilateral chest tubes, NO output from left chest tube, right tube with 180cc output of blood overnight. Possible pleurodesis later this week. Follow up CT chest report Renal: -CKD stage III-IV: started on lisinopril nephrology following for nephrotic syndrome. Endocrine: - DM 2, blood glucose monitoring, sliding scale insulin, hypothyroidism: on synthroid Heme: -Anemia of chronic disease: monitor cbc to keep hb >8, FOBT was negative. Thrombocytopenia resolved. Leukocytosis resolved Prophylaxis: DVT: SCDS, GI: Protonix Hypokalemia: replace with KCL 10meq x [address] reviewed [address]. Gannon, right chest tube found to be in lung parenchyma , patient for OR to replace chest tube. 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 Tita Magana PGY2 07/15/17 14:39 CCU Objective - Vital Signs / Intake & Output Vital Signs (Last 4 hours): Vital Signs Temp Pulse Resp BP Pulse Ox 07/15/17 10:05 73 175/66 H 07/15/17 10:00 64 13 175/66 H 100 07/15/17 08:55 74 169/67 H 07/15/17 08:54 74 169/67 H 07/15/17 08:51 74 169/67 H 07/15/17 08:00 98.5 F 75 18 169/67 H 100 Intake and Output (Last 8hrs): Intake & Output 07/14/17 07/15/17 07/15/17 22:59 06:59 14:59 Intake Total 33 0 120 Output Total 1530 955 Balance -1497 -955 120 Intake: IV 8 Intake, Piggyback 0 100 Oral 25 20 Output: Chest Tube Drainage 55 180 Left Mid-Axillary Chest 0 Right Lateral Chest 55 180 Urine 1475 775 Urethral (Salazar) 1475 775 Other: # Bowel Movements 1 1 - Physical Exam Head: Positive for: Atraumatic, Normocephalic Pupils: Positive for: PERRL Conjunctiva: Positive for: Normal. Negative for: Icteric Mouth: Positive for: Moist Mucous Membranes, Other (ET tube). Negative for: Dry , Drooling Neck: Positive for: Other (central line: left neck in place with dressing, biopatch over line. clean and dry.) Respiratory/Chest: Positive for: Clear to Auscultation (anteriorly bilateraly), Good Air Exchange (on mechancal ventilation), Decreased Breath Sounds (left lung base) Cardiovascular: Positive for: Regular Rate and Rhythm, Normal S1, S2. Negative for: Tachycardic, Bradycardic Abdomen: Positive for: Normal Bowel Sounds. Negative for: Tenderness, Distention Upper Extremity: Positive for: Edema (bilateral 2+ pitting edema; right > left) Lower Extremity: Positive for: Normal Inspection. Negative for: Edema, Tenderness Skin: Positive for: Warm, Dry, Other (skin tear back of left hand) Psychiatric: Positive for: Other (oriented to person and place, not oriented to time) - Medications Active Medications: Active Medications Generic Name Dose Route Start Last Admin Trade Name Freq PRN Reason Stop Dose Admin Albuterol/Ipratropium 3 ml 07/14/17 15:00 Duoneb 3 Mg/0.5 Mg (3 Ml) Ud INH RQ6 PRN Shortness of Breath Amlodipine Besylate 10 mg 07/05/17 09:00 07/15/17 08:54 Norvasc PO 10 mg DAILY THOMAS Administration Aspirin 81 mg 07/14/17 09:00 07/15/17 09:45 Ecotrin PO 81 mg DAILY THOMAS Administration Bacitracin 1 applic 07/11/17 09:00 07/15/17 08:51 Bacitracin Oint TOP 1 applic DAILY THOMAS Administration Calcium Acetate 2,001 mg 07/05/17 08:30 07/14/17 12:26 Phoslo PO 2,001 mg 0830,1200,1830 THOMAS Administration Clopidogrel Bisulfate 75 mg 07/14/17 09:00 07/15/17 08:54 Plavix PO 75 mg DAILY THOMAS Administration Dextrose 0 ml 06/22/17 22:36 Dextrose 50% Inj IV STAT PRN Hypoglycemia Protocol Protocol Dextrose 0 gm 06/22/17 22:36 Glutose 15 PO ONCE PRN Hypoglycemia Protocol Protocol Dextrose 50 ml 07/14/17 14:52 Dextrose 50% Inj IVP Q1H PRN Hypoglycemia Epoetin Roel 14,000 unit 07/07/17 09:00 07/14/17 10:41 Procrit SC 14,000 unit MWF THOMAS Administration Fluconazole 200 mg 07/12/17 09:00 07/15/17 08:53 Diflucan PO 200 mg DAILY THOMAS Administration Protocol Glucagon 0 mg 06/22/17 22:36 Glucagen Diagnostic Kit IM STAT PRN Hypoglycemia Protocol Protocol Hydralazine HCl 50 mg 07/13/17 12:48 07/15/17 08:51 Apresoline PO 50 mg Q8 THOMAS Administration Hydralazine HCl 10 mg 07/15/17 01:28 Apresoline IV Q6 PRN SBP > 170 Levetiracetam 500 mg/ Sodium 105 mls @ 210 mls/hr 07/04/17 21:00 07/15/17 09: 44 Chloride IVPB 210 mls/hr Q12 THOMAS Administration Cefepime HCl 1 gm/ Sodium 50 mls @ 50 mls/hr 07/13/17 09:00 07/14/17 08:13 Chloride IVPB 50 mls/hr DAILY THOMAS Administration Protocol Potassium Chloride 50 mls @ 50 mls/hr 07/15/17 11:00 Potassium Cl 10meq/50ml Sterile Water IVPB 07/15/17 12:59 Q1 THOMAS Insulin Human Lispro 0 units 07/12/17 09:45 07/15/17 04:08 Humalog SC Not Given Q6H [facility] Protocol Levothyroxine Sodium 50 mcg 07/05/17 06:30 07/15/17 06:43 Synthroid PO 50 mcg DAILY@0630 THOMAS Administration Lisinopril 40 mg 07/15/17 09:00 07/15/17 08:55 Zestril PO 40 mg DAILY THOMAS Administration Metoprolol Tartrate 5 mg 07/14/17 14:51 07/15/17 10:05 Lopressor IVP 5 mg Q6 THOMAS Administration Pantoprazole Sodium 40 mg 07/08/17 21:00 07/15/17 08:54 Protonix Inj IVP 40 mg Q12 THOMAS Administration Sodium Bicarbonate 1,300 mg 06/30/17 17:00 07/02/17 16:23 Sodium Bicarbonate Tab PO 1,300 mg Q8 THOMAS Administration Thiamine HCl 100 mg 07/15/17 09:00 07/15/17 08:54 Vitamin B1 Tab PO 100 mg DAILY THOMAS Administration - Patient Studies Lab Studies: Microbiology Studies 07/07/17 06:17 Mycobacterial Culture - Preliminary Other: Please Indicate 07/06/17 10:31 Mycobacterial Culture - Preliminary Other: Please Indicate 07/10/17 11:04 Gram Stain - Final Pleural Fluid Body Fluid Culture - Final NO GROWTH AFTER 4 DAYS 07/06/17 19:20 Mycobacterial Culture - Preliminary Other: Please Indicate Lab Studies 07/15/17 07/15/17 07/15/17 Range/Units 05:37 05:37 04:06 WBC 5.0 (4.8-10.8) K/uL RBC 3.07 L (4.40-5.90) Mil/uL Hgb 9.3 L (12.0-18.0) g/dL Hct 28.4 L (35.0-51.0) % MCV 92.4 (80.0-94.0) fl MCH 30.2 (27.0-31.0) pg MCHC 32.7 L (33.0-37.0) g/dL RDW 16.4 H (11.5-14.5) % Plt Count 209 (130-400) K/uL MPV 10.7 (7.2-11.7) fl Neut % (Auto) 67.2 (50.0-75.0) % Lymph % (Auto) 16.6 L (20.0-40.0) % Benson % (Auto) 7.9 (0.0-10.0) % Eos % (Auto) 5.6 H (0.0-4.0) % Baso % (Auto) 2.7 H (0.0-2.0) % Neut # 3.3 (1.8-7.0) K/uL Lymph # 0.8 L (1.0-4.3) K/uL Benson # 0.4 (0.0-0.8) K/uL Eos # 0.3 (0.0-0.7) K/uL Baso # 0.1 (0.0-0.2) K/uL pCO2 (35-45) mm/Hg pO2 (80-100) mm/Hg HCO3 (21-28) mmol/L ABG pH (7.35-7.45) ABG Total CO2 (22-28) mmol/L ABG O2 Saturation (95-98) % ABG Base Excess (-2.0-3.0) mmol/L Andry Test ABG Potassium (3.6-5.2) mmol/L A-a O2 Difference mm/Hg Sodium 148 (132-148) mmol/L Chloride 113 H (98-107) mmol/L Glucose (75-110) mg/dL Lactate (0.7-2.1) mmol/L FiO2 % Potassium 3.3 L (3.6-5.0) MMOL/L Carbon Dioxide 30 (22-30) mmol/L Anion Gap 8 L (10-20) BUN 39 H (9-20) mg/dl Creatinine 1.9 H (0.8-1.5) mg/dl Est GFR ( Amer) 43 Est GFR (Non-Af Amer) 36 POC Glucose (mg/dL) 111 H (65-110) mg/dL Random Glucose 117 H (75-110) mg/dL Calcium 9.6 (8.4-10.2) mg/dL Phosphorus 3.0 (2.5-4.5) mg/dl Magnesium 1.9 (1.6-2.3) MG/DL Total Bilirubin 0.3 (0.2-1.3) mg/dl AST 24 (17-59) U/L ALT 38 (21-72) U/L Alkaline Phosphatase 181 H (38-126) U/L Total Protein 5.0 L (6.3-8.2) G/DL Albumin 2.3 L (3.5-5.0) g/dL Globulin 2.7 (2.2-3.9) gm/dL Albumin/Globulin Ratio 0.8 L (1.0-2.1) Arterial Blood Potassium (3.6-5.2) mmol/L 07/14/17 07/14/17 07/14/17 Range/Units 21:48 17:35 16:10 WBC (4.8-10.8) K/uL RBC (4.40-5.90) Mil/uL Hgb (12.0-18.0) g/dL Hct (35.0-51.0) % MCV (80.0-94.0) fl MCH (27.0-31.0) pg MCHC (33.0-37.0) g/dL RDW (11.5-14.5) % Plt Count (130-400) K/uL MPV (7.2-11.7) fl Neut % (Auto) (50.0-75.0) % Lymph % (Auto) (20.0-40.0) % Benson % (Auto) (0.0-10.0) % Eos % (Auto) (0.0-4.0) % Baso % (Auto) (0.0-2.0) % Neut # (1.8-7.0) K/uL Lymph # (1.0-4.3) K/uL Benson # (0.0-0.8) K/uL Eos # (0.0-0.7) K/uL Baso # (0.0-0.2) K/uL pCO2 (35-45) mm/Hg pO2 (80-100) mm/Hg HCO3 (21-28) mmol/L ABG pH (7.35-7.45) ABG Total CO2 (22-28) mmol/L ABG O2 Saturation (95-98) % ABG Base Excess (-2.0-3.0) mmol/L Andry Test ABG Potassium (3.6-5.2) mmol/L A-a O2 Difference mm/Hg Sodium (132-148) mmol/L Chloride (98-107) mmol/L Glucose (75-110) mg/dL Lactate (0.7-2.1) mmol/L FiO2 % Potassium (3.6-5.0) MMOL/L Carbon Dioxide (22-30) mmol/L Anion Gap (10-20) BUN (9-20) mg/dl Creatinine (0.8-1.5) mg/dl Est GFR ( Amer) Est GFR (Non-Af Amer) POC Glucose (mg/dL) 113 H 138 H 152 H (65-110) mg/dL Random Glucose (75-110) mg/dL Calcium (8.4-10.2) mg/dL Phosphorus (2.5-4.5) mg/dl Magnesium (1.6-2.3) MG/DL Total Bilirubin (0.2-1.3) mg/dl AST (17-59) U/L ALT (21-72) U/L Alkaline Phosphatase (38-126) U/L Total Protein (6.3-8.2) G/DL Albumin (3.5-5.0) g/dL Globulin (2.2-3.9) gm/dL Albumin/Globulin Ratio (1.0-2.1) Arterial Blood Potassium (3.6-5.2) mmol/L 07/14/17 07/14/17 Range/Units 15:50 11:25 WBC (4.8-10.8) K/uL RBC (4.40-5.90) Mil/uL Hgb (12.0-18.0) g/dL Hct (35.0-51.0) % MCV (80.0-94.0) fl MCH (27.0-31.0) pg MCHC (33.0-37.0) g/dL RDW (11.5-14.5) % Plt Count (130-400) K/uL MPV (7.2-11.7) fl Neut % (Auto) (50.0-75.0) % Lymph % (Auto) (20.0-40.0) % Benson % (Auto) (0.0-10.0) % Eos % (Auto) (0.0-4.0) % Baso % (Auto) (0.0-2.0) % Neut # (1.8-7.0) K/uL Lymph # (1.0-4.3) K/uL Benson # (0.0-0.8) K/uL Eos # (0.0-0.7) K/uL Baso # (0.0-0.2) K/uL pCO2 35 (35-45) mm/Hg pO2 110 H (80-100) mm/Hg HCO3 27.1 (21-28) mmol/L ABG pH 7.48 H (7.35-7.45) ABG Total CO2 27.2 (22-28) mmol/L ABG O2 Saturation 99.4 H (95-98) % ABG Base Excess 2.8 (-2.0-3.0) mmol/L Andry Test Yes ABG Potassium 3.7 (3.6-5.2) mmol/L A-a O2 Difference 96.0 mm/Hg Sodium 143.0 (132-148) mmol/L Chloride 114.0 H (98-107) mmol/L Glucose 156 H (75-110) mg/dL Lactate 0.4 L (0.7-2.1) mmol/L FiO2 35.0 % Potassium (3.6-5.0) MMOL/L Carbon Dioxide (22-30) mmol/L Anion Gap (10-20) BUN (9-20) mg/dl Creatinine (0.8-1.5) mg/dl Est GFR ( Amer) Est GFR (Non-Af Amer) POC Glucose (mg/dL) 180 H (65-110) mg/dL Random Glucose (75-110) mg/dL Calcium (8.4-10.2) mg/dL Phosphorus (2.5-4.5) mg/dl Magnesium (1.6-2.3) MG/DL Total Bilirubin (0.2-1.3) mg/dl AST (17-59) U/L ALT (21-72) U/L Alkaline Phosphatase (38-126) U/L Total Protein (6.3-8.2) G/DL Albumin (3.5-5.0) g/dL Globulin (2.2-3.9) gm/dL Albumin/Globulin Ratio (1.0-2.1) Arterial Blood Potassium 3.7 (3.6-5.2) mmol/L Laboratory Results - last 24 hr 07/14/17 07/14/17 07/14/17 11:25 15:50 16:10 WBC RBC Hgb Hct MCV MCH MCHC RDW Plt Count MPV Neut % (Auto) Lymph % (Auto) Benson % (Auto) Eos % (Auto) Baso % (Auto) Neut # Lymph # Benson # Eos # Baso # pCO2 35 pO2 110 H HCO3 27.1 ABG pH 7.48 H ABG Total CO2 27.2 ABG O2 Saturation 99.4 H ABG Base Excess 2.8 Andry Test Yes ABG Potassium 3.7 A-a O2 Difference 96.0 Sodium 143.0 Chloride 114.0 H Glucose 156 H Lactate 0.4 L FiO2 35.0 Potassium Carbon Dioxide Anion Gap BUN Creatinine Est GFR ( Amer) Est GFR (Non-Af Amer) POC Glucose (mg/dL) 180 H 152 H Random Glucose Calcium Phosphorus Magnesium Total Bilirubin AST ALT Alkaline Phosphatase Total Protein Albumin Globulin Albumin/Globulin Ratio Arterial Blood Potassium 3.7 07/14/17 07/14/17 07/15/17 17:35 21:48 04:06 WBC RBC Hgb Hct MCV MCH MCHC RDW Plt Count MPV Neut % (Auto) Lymph % (Auto) Benson % (Auto) Eos % (Auto) Baso % (Auto) Neut # Lymph # Benson # Eos # Baso # pCO2 pO2 HCO3 ABG pH ABG Total CO2 ABG O2 Saturation ABG Base Excess Andry Test ABG Potassium A-a O2 Difference Sodium Chloride Glucose Lactate FiO2 Potassium Carbon Dioxide Anion Gap BUN Creatinine Est GFR ( Amer) Est GFR (Non-Af Amer) POC Glucose (mg/dL) 138 H 113 H 111 H Random Glucose Calcium Phosphorus Magnesium Total Bilirubin AST ALT Alkaline Phosphatase Total Protein Albumin Globulin Albumin/Globulin Ratio Arterial Blood Potassium 07/15/17 07/15/17 05:37 05:37 WBC 5.0 RBC 3.07 L Hgb 9.3 L Hct 28.4 L MCV 92.4 MCH 30.2 MCHC 32.7 L RDW 16.4 H Plt Count 209 MPV 10.7 Neut % (Auto) 67.2 Lymph % (Auto) 16.6 L Benson % (Auto) 7.9 Eos % (Auto) 5.6 H Baso % (Auto) 2.7 H Neut # 3.3 Lymph # 0.8 L Benson # 0.4 Eos # 0.3 Baso # 0.1 pCO2 pO2 HCO3 ABG pH ABG Total CO2 ABG O2 Saturation ABG Base Excess Andry Test ABG Potassium A-a O2 Difference Sodium 148 Chloride 113 H Glucose Lactate FiO2 Potassium 3.3 L Carbon Dioxide 30 Anion Gap 8 L BUN 39 H Creatinine 1.9 H Est GFR ( Amer) 43 Est GFR (Non-Af Amer) 36 POC Glucose (mg/dL) Random Glucose 117 H Calcium 9.6 Phosphorus 3.0 Magnesium 1.9 Total Bilirubin 0.3 AST 24 ALT 38 Alkaline Phosphatase 181 H Total Protein 5.0 L Albumin 2.3 L Globulin 2.7 Albumin/Globulin Ratio 0.8 L Arterial Blood Potassium Fingerstick Blood Sugar Results: 111 <Bandar Ortega - Last Filed: 07/15/17 16:47> CCU Objective - Vital Signs / Intake & Output Vital Signs (Last 4 hours): Vital Signs Pulse Resp BP Pulse Ox 07/15/17 16:36 73 172/82 H 07/15/17 14:00 79 19 159/72 H 95 Intake and Output (Last 8hrs): Intake & Output 07/15/17 07/15/17 07/15/17 06:59 14:59 22:59 Intake Total 0 370 100 Output Total 955 Balance -955 370 100 Intake: Intake, Piggyback 0 350 100 Oral 20 Output: Chest Tube Drainage 180 Right Lateral Chest 180 Urine 775 Urethral (Salazar) 775 Other: # Bowel Movements 1 1 - Medications Active Medications: Active Medications Generic Name Dose Route Start Last Admin Trade Name Freq PRN Reason Stop Dose Admin Albuterol/Ipratropium 3 ml 07/14/17 15:00 Duoneb 3 Mg/0.5 Mg (3 Ml) Ud INH RQ6 PRN Shortness of Breath Amlodipine Besylate 10 mg 07/05/17 09:00 07/15/17 08:54 Norvasc PO 10 mg DAILY THOMAS Administration Aspirin 81 mg 07/14/17 09:00 07/15/17 09:45 Ecotrin PO 81 mg DAILY THOMAS Administration Bacitracin 1 applic 07/11/17 09:00 07/15/17 08:51 Bacitracin Oint TOP 1 applic DAILY THOMAS Administration Calcium Acetate 2,001 mg 07/05/17 08:30 07/14/17 12:26 Phoslo PO 2,001 mg 0830,1200,1830 THOMAS Administration Dextrose 0 ml 06/22/17 22:36 Dextrose 50% Inj IV STAT PRN Hypoglycemia Protocol Protocol Dextrose 0 gm 06/22/17 22:36 Glutose 15 PO ONCE PRN Hypoglycemia Protocol Protocol Dextrose 50 ml 07/14/17 14:52 Dextrose 50% Inj IVP Q1H PRN Hypoglycemia Epoetin Roel 14,000 unit 07/07/17 09:00 07/14/17 10:41 Procrit SC 14,000 unit MWF THOMAS Administration Fluconazole 200 mg 07/12/17 09:00 07/15/17 08:53 Diflucan PO 200 mg DAILY THOMAS Administration Protocol Glucagon 0 mg 06/22/17 22:36 Glucagen Diagnostic Kit IM STAT PRN Hypoglycemia Protocol Protocol Hydralazine HCl 50 mg 07/13/17 12:48 07/15/17 08:51 Apresoline PO 50 mg Q8 THOMAS Administration Hydralazine HCl 10 mg 07/15/17 01:28 Apresoline IV Q6 PRN SBP > 170 Levetiracetam 500 mg/ Sodium 105 mls @ 210 mls/hr 07/04/17 21:00 07/15/17 09: 44 Chloride IVPB 210 mls/hr Q12 THOMAS Administration Cefepime HCl 1 gm/ Sodium 50 mls @ 50 mls/hr 07/13/17 09:00 07/15/17 08:40 Chloride IVPB 50 mls/hr DAILY THOMAS Administration Protocol Insulin Human Lispro 0 units 07/12/17 09:45 07/15/17 11:00 Humalog SC Not Given Q6H [facility] Protocol Levothyroxine Sodium 50 mcg 07/05/17 06:30 07/15/17 06:43 Synthroid PO 50 mcg DAILY@0630 THOMAS Administration Lisinopril 40 mg 07/15/17 09:00 07/15/17 08:55 Zestril PO 40 mg DAILY THOMAS Administration Metoprolol Tartrate 5 mg 07/14/17 14:51 07/15/17 16:36 Lopressor IVP 5 mg Q6 THOMAS Administration Pantoprazole Sodium 40 mg 07/08/17 21:00 07/15/17 08:54 Protonix Inj IVP 40 mg Q12 THOMAS Administration Sodium Bicarbonate 1,300 mg 06/30/17 17:00 07/02/17 16:23 Sodium Bicarbonate Tab PO 1,300 mg Q8 THOMAS Administration Thiamine HCl 100 mg 07/15/17 09:00 07/15/17 08:54 Vitamin B1 Tab PO 100 mg DAILY THOMAS Administration - Patient Studies Lab Studies: Microbiology Studies 07/14/17 19:35 Gram Stain - Final Trachasp 07/07/17 06:17 Mycobacterial Culture - Preliminary Other: Please Indicate 07/06/17 10:31 Mycobacterial Culture - Preliminary Other: Please Indicate 07/10/17 11:04 Gram Stain - Final Pleural Fluid Body Fluid Culture - Final NO GROWTH AFTER 4 DAYS Lab Studies 07/15/17 07/15/17 07/15/17 Range/Units 14:40 13:10 12:51 WBC (4.8-10.8) K/uL RBC (4.40-5.90) Mil/uL Hgb 0.0 L* D Cancelled (12.0-18.0) g/dL Hct 0.0 L Cancelled (35.0-51.0) % MCV (80.0-94.0) fl MCH (27.0-31.0) pg MCHC (33.0-37.0) g/dL RDW (11.5-14.5) % Plt Count (130-400) K/uL MPV (7.2-11.7) fl Neut % (Auto) (50.0-75.0) % Lymph % (Auto) (20.0-40.0) % Benson % (Auto) (0.0-10.0) % Eos % (Auto) (0.0-4.0) % Baso % (Auto) (0.0-2.0) % Neut # (1.8-7.0) K/uL Lymph # (1.0-4.3) K/uL Benson # (0.0-0.8) K/uL Eos # (0.0-0.7) K/uL Baso # (0.0-0.2) K/uL Sodium (132-148) mmol/l Potassium (3.6-5.0) MMOL/L Chloride (98-107) mmol/L Carbon Dioxide (22-30) mmol/L Anion Gap (10-20) BUN (9-20) mg/dl Creatinine (0.8-1.5) mg/dl Est GFR ( Amer) Est GFR (Non-Af Amer) POC Glucose (mg/dL) (65-110) mg/dL Random Glucose (75-110) mg/dL Calcium (8.4-10.2) mg/dL Phosphorus (2.5-4.5) mg/dl Magnesium (1.6-2.3) MG/DL Total Bilirubin (0.2-1.3) mg/dl AST (17-59) U/L ALT (21-72) U/L Alkaline Phosphatase (38-126) U/L Total Protein (6.3-8.2) G/DL Albumin (3.5-5.0) g/dL Globulin (2.2-3.9) gm/dL Albumin/Globulin Ratio (1.0-2.1) Blood Type A NEGATIVE Antibody Screen Negative Crossmatch See Detail BBK History Checked Patient has bt 07/15/17 07/15/17 07/15/17 Range/Units 11:08 05:37 05:37 WBC 5.0 (4.8-10.8) K/uL RBC 3.07 L (4.40-5.90) Mil/uL Hgb 9.3 L (12.0-18.0) g/dL Hct 28.4 L (35.0-51.0) % MCV 92.4 (80.0-94.0) fl MCH 30.2 (27.0-31.0) pg MCHC 32.7 L (33.0-37.0) g/dL RDW 16.4 H (11.5-14.5) % Plt Count 209 (130-400) K/uL MPV 10.7 (7.2-11.7) fl Neut % (Auto) 67.2 (50.0-75.0) % Lymph % (Auto) 16.6 L (20.0-40.0) % Benson % (Auto) 7.9 (0.0-10.0) % Eos % (Auto) 5.6 H (0.0-4.0) % Baso % (Auto) 2.7 H (0.0-2.0) % Neut # 3.3 (1.8-7.0) K/uL Lymph # 0.8 L (1.0-4.3) K/uL Benson # 0.4 (0.0-0.8) K/uL Eos # 0.3 (0.0-0.7) K/uL Baso # 0.1 (0.0-0.2) K/uL Sodium 148 (132-148) mmol/l Potassium 3.3 L (3.6-5.0) MMOL/L Chloride 113 H (98-107) mmol/L Carbon Dioxide 30 (22-30) mmol/L Anion Gap 8 L (10-20) BUN 39 H (9-20) mg/dl Creatinine 1.9 H (0.8-1.5) mg/dl Est GFR ( Amer) 43 Est GFR (Non-Af Amer) 36 POC Glucose (mg/dL) 129 H (65-110) mg/dL Random Glucose 117 H (75-110) mg/dL Calcium 9.6 (8.4-10.2) mg/dL Phosphorus 3.0 (2.5-4.5) mg/dl Magnesium 1.9 (1.6-2.3) MG/DL Total Bilirubin 0.3 (0.2-1.3) mg/dl AST 24 (17-59) U/L ALT 38 (21-72) U/L Alkaline Phosphatase 181 H (38-126) U/L Total Protein 5.0 L (6.3-8.2) G/DL Albumin 2.3 L (3.5-5.0) g/dL Globulin 2.7 (2.2-3.9) gm/dL Albumin/Globulin Ratio 0.8 L (1.0-2.1) Blood Type Antibody Screen Crossmatch BBK History Checked 07/15/17 07/14/17 07/14/17 Range/Units 04:06 21:48 17:35 WBC (4.8-10.8) K/uL RBC (4.40-5.90) Mil/uL Hgb (12.0-18.0) g/dL Hct (35.0-51.0) % MCV (80.0-94.0) fl MCH (27.0-31.0) pg MCHC (33.0-37.0) g/dL RDW (11.5-14.5) % Plt Count (130-400) K/uL MPV (7.2-11.7) fl Neut % (Auto) (50.0-75.0) % Lymph % (Auto) (20.0-40.0) % Benson % (Auto) (0.0-10.0) % Eos % (Auto) (0.0-4.0) % Baso % (Auto) (0.0-2.0) % Neut # (1.8-7.0) K/uL Lymph # (1.0-4.3) K/uL Benson # (0.0-0.8) K/uL Eos # (0.0-0.7) K/uL Baso # (0.0-0.2) K/uL Sodium (132-148) mmol/l Potassium (3.6-5.0) MMOL/L Chloride (98-107) mmol/L Carbon Dioxide (22-30) mmol/L Anion Gap (10-20) BUN (9-20) mg/dl Creatinine (0.8-1.5) mg/dl Est GFR ( Amer) Est GFR (Non-Af Amer) POC Glucose (mg/dL) 111 H 113 H 138 H (65-110) mg/dL Random Glucose (75-110) mg/dL Calcium (8.4-10.2) mg/dL Phosphorus (2.5-4.5) mg/dl Magnesium (1.6-2.3) MG/DL Total Bilirubin (0.2-1.3) mg/dl AST (17-59) U/L ALT (21-72) U/L Alkaline Phosphatase (38-126) U/L Total Protein (6.3-8.2) G/DL Albumin (3.5-5.0) g/dL Globulin (2.2-3.9) gm/dL Albumin/Globulin Ratio (1.0-2.1) Blood Type Antibody Screen Crossmatch BBK History Checked Laboratory Results - last 24 hr 07/14/17 07/14/17 07/15/17 17:35 21:48 04:06 WBC RBC Hgb Hct MCV MCH MCHC RDW Plt Count MPV Neut % (Auto) Lymph % (Auto) Benson % (Auto) Eos % (Auto) Baso % (Auto) Neut # Lymph # Benson # Eos # Baso # Sodium Potassium Chloride Carbon Dioxide Anion Gap BUN Creatinine Est GFR ( Amer) Est GFR (Non-Af Amer) POC Glucose (mg/dL) 138 H 113 H 111 H Random Glucose Calcium Phosphorus Magnesium Total Bilirubin AST ALT Alkaline Phosphatase Total Protein Albumin Globulin Albumin/Globulin Ratio Blood Type Antibody Screen Crossmatch BBK History Checked 07/15/17 07/15/17 07/15/17 05:37 05:37 11:08 WBC 5.0 RBC 3.07 L Hgb 9.3 L Hct 28.4 L MCV 92.4 MCH 30.2 MCHC 32.7 L RDW 16.4 H Plt Count 209 MPV 10.7 Neut % (Auto) 67.2 Lymph % (Auto) 16.6 L Benson % (Auto) 7.9 Eos % (Auto) 5.6 H Baso % (Auto) 2.7 H Neut # 3.3 Lymph # 0.8 L Benson # 0.4 Eos # 0.3 Baso # 0.1 Sodium 148 Potassium 3.3 L Chloride 113 H Carbon Dioxide 30 Anion Gap 8 L BUN 39 H Creatinine 1.9 H Est GFR ( Amer) 43 Est GFR (Non-Af Amer) 36 POC Glucose (mg/dL) 129 H Random Glucose 117 H Calcium 9.6 Phosphorus 3.0 Magnesium 1.9 Total Bilirubin 0.3 AST 24 ALT 38 Alkaline Phosphatase 181 H Total Protein 5.0 L Albumin 2.3 L Globulin 2.7 Albumin/Globulin Ratio 0.8 L Blood Type Antibody Screen Crossmatch BBK History Checked 07/15/17 07/15/17 07/15/17 12:51 13:10 14:40 WBC RBC Hgb Cancelled 0.0 L* D Hct Cancelled 0.0 L MCV MCH MCHC RDW Plt Count MPV Neut % (Auto) Lymph % (Auto) Benson % (Auto) Eos % (Auto) Baso % (Auto) Neut # Lymph # Benson # Eos # Baso # Sodium Potassium Chloride Carbon Dioxide Anion Gap BUN Creatinine Est GFR ( Amer) Est GFR (Non-Af Amer) POC Glucose (mg/dL) Random Glucose Calcium Phosphorus Magnesium Total Bilirubin AST ALT Alkaline Phosphatase Total Protein Albumin Globulin Albumin/Globulin Ratio Blood Type A NEGATIVE Antibody Screen Negative Crossmatch See Detail BBK History Checked Patient has bt Critical Care Progress Note - Nutrition Nutrition: Nutrition Category Date Time Status NPO Diet [DIET] Diets 07/15/17 Dinner Active Attending/Attestation - Attestation I have personally seen and examined this patient.: Yes I have fully participated in the care of the patient.: Yes I have reviewed all pertinent clinical information: Yes Notes (Text): 07/15/17 16:41 I have seen and examined the patient. Medical records, lab studies, and imaging were reviewed by me and a management plan was formulated on multidisciplinary rounds with resident Dr. Magana. I agree with their above documented assessment and plan. patient has complication of chest tube passed into lung parenchyma. He will have to go to OR for removal. Bilateral pleurodesis will be delayed until patient's pulmonary issues have been stabilized. Clinically patient is doing well and breathing normally. He has rescinded his own DNR, he is now full code. Will hold Plavix and lovenox for surgical intervention. Transfusing platelets and PRBC's. Critical Care Time minutes. Multi-disciplinary rounds were performed with house staff, nursing, speech therapy, respiratory therapy, pharmacy and nutrition with integrated input from the primary team/attending and other consulting services. The documented time is cumulative and includes review of patient data/exams/labs/chart review and examination of the patient on rounds and throughout the day; time is exclusive of any procedures or teaching time. 07/15/17 16:42
[2017-07-15] MEDS ORDERED: Enoxaparin 40 mg Syringe SC SCH (11:00)
[2017-07-15] MEDS ORDERED: Potassium CL 10 MEQ/50 ML 50 ML IVPB SCH (11:00)
--- NOTE | 2017-07-15 12:25 | RAD ---
PROCEDURE: CHEST RADIOGRAPH, 1 VIEW HISTORY: intubated, chest tube COMPARISON: Portable chest 05/09/2018 4:32 a.m.. FINDINGS: Endotracheal and nasogastric tubes are not grossly changed in position as well as left central venous line. LUNGS: Persistent right basilar airspace disease is appreciated results potentially at the left base the left basilar pleural effusion is a more definite finding there. A mild right pleural effusion is difficult to exclude. Likely unchanged. No pneumothorax bilaterally. CARDIOVASCULAR: Stable cardiac silhouette. Slightly diminished pulmonary venous congestion pattern. OSSEOUS STRUCTURES: No significant abnormalities. VISUALIZED UPPER ABDOMEN: Normal. OTHER FINDINGS: None. IMPRESSION: Likely improvement in pulmonary venous congestion. Bilateral pleural effusions persist with potential underlying airspace disease again evident bilaterally.
[2017-07-15] MEDS ORDERED: Bupivacaine 0.5% Inj(30mL) ONE (13:31)
[2017-07-15] MEDS ORDERED: Lidocaine 1% Inj (20ml) ONE ×2 (13:31→18:12)
[2017-07-15] MEDS ORDERED: Bacitracin Ointment 30 GM TUBE ONE ×2 (13:31→20:10)
--- NOTE | 2017-07-15 13:55 | CT ---
PROCEDURE: CT Chest without contrast HISTORY: Evaluate pneumo and effusions s/p chest tube COMPARISON: Multiple serial examinations preceding the most recent study: July 122017. 07/08/2017 CT thorax TECHNIQUE: Contiguous axial images were obtained through the chest without intravenous contrast enhancement. Sagittal and coronal reconstructions were performed. Radiation dose (DLP): 685.65 mGy-cm. This CT exam was performed using one or more of the following dose reduction techniques: Automated exposure control, adjustment of the mA and/or kV according to patient size, and/or use of iterative reconstruction technique. FINDINGS: LUNGS: Collapse of the right lung, new finding compared to recent serial chest radiographs. Right lower lobe consolidative changes. MEDIASTINUM: Unremarkable thoracic aorta. No aneurysm. Normal sized heart. Main pulmonary artery unremarkable. No vascular congestion. No lymphadenopathy. PLEURA: New large right pneumothorax without evidence of tension pneumothorax. Residual right pleural effusion. This is partially loculated, subpulmonic effusion. Moderate left pleural effusion. Chest tube in the left pleural space identified posteriorly. No evidence of left pneumothorax. Portions of the left pleural effusion or loculated. BONES: No fracture. No destructive lesion. UPPER ABDOMEN: Grossly unremarkable. OTHER FINDINGS: Removal of support apparatus since the prior study: The patient has been extubated in the antrum since the most recent chest radiograph. PICC line in satisfactory position IMPRESSION: 1. New right pneumothorax at least 50% of right lung volume. The chest tube position is approximately stable. 2. Residual, Subpulmonic right pleural effusion 3. Partially loculated left pleural effusion. . 4. Consolidative changes/ compressive atelectasis left lung related to the left pleural effusion. Communication of results: I discussed findings with the nurse involved in the care and management the patient. This information was already known to the referring physician.
--- NOTE | 2017-07-15 14:04 | CP.PCM.PN ---
Subjective - Date & Time of Evaluation Date of Evaluation: 07/15/17 Time of Evaluation: 13:55 - Subjective Subjective: pt s/e. awake and resp onding to verbal commands vss. off ventilator support. chsst tube output-right 180ccv bloody drainge H and H pending. ct of chest this am- chest tube in the parenchyma of right lung, pleural effusion and pneumothorax left chest-no pneumothorax but some efflusion remians + consolidation and compressive atelectais. I would like to take care of ascute emergency issues of right lung first, and other issues electively. Since the pt is on plavix and lovonox, will trasfuse with 2 units of platelets before OR as recommended by ICU attending, . Objective - Vital Signs/Intake and Output Vital Signs (last 24 hours): Temp Pulse Resp BP Pulse Ox 97.7 F 79 21 153/59 H 97 07/15/17 12:00 07/15/17 12:00 07/15/17 12:00 07/15/17 12:00 07/15/17 12:00 Intake and Output: 07/15/17 07/15/17 06:59 18:59 Intake Total 0 120 Output Total 1130 Balance -1130 120 - Medications Medications: Current Medications Albuterol/Ipratropium (Duoneb 3 Mg/0.5 Mg (3 Ml) Ud) 3 ml INH RQ6 PRN PRN Reason: Shortness of Breath Amlodipine Besylate (Norvasc) 10 mg PO DAILY [facility] Last Admin: 07/15/17 08:54 Dose: 10 mg Aspirin (Ecotrin) 81 mg PO DAILY [facility] Last Admin: 07/15/17 09:45 Dose: 81 mg Bacitracin (Bacitracin Oint) 1 applic TOP DAILY [facility] Last Admin: 07/15/17 08:51 Dose: 1 applic Calcium Acetate (Phoslo) 2,001 mg PO 0830,1200,1830 [facility] Last Admin: 07/14/17 12:26 Dose: 2,001 mg Dextrose (Dextrose 50% Inj) 0 ml IV STAT PRN; Protocol PRN Reason: Hypoglycemia Protocol Dextrose (Glutose 15) 0 gm PO ONCE PRN; Protocol PRN Reason: Hypoglycemia Protocol Dextrose (Dextrose 50% Inj) 50 ml IVP Q1H PRN PRN Reason: Hypoglycemia Epoetin Roel (Procrit) 14,000 unit SC MWF [facility] Last Admin: 07/14/17 10:41 Dose: 14,000 unit Fluconazole (Diflucan) 200 mg PO DAILY [facility] PRN Reason: Protocol Last Admin: 07/15/17 08:53 Dose: 200 mg Glucagon (Glucagen Diagnostic Kit) 0 mg IM STAT PRN; Protocol PRN Reason: Hypoglycemia Protocol Hydralazine HCl (Apresoline) 50 mg PO Q8 [facility] Last Admin: 07/15/17 08:51 Dose: 50 mg Hydralazine HCl (Apresoline) 10 mg IV Q6 PRN PRN Reason: SBP > 170 Levetiracetam 500 mg/ Sodium (Chloride) 105 mls @ 210 mls/hr IVPB Q12 [facility] Last Admin: 07/15/17 09:44 Dose: 210 mls/hr Cefepime HCl 1 gm/ Sodium (Chloride) 50 mls @ 50 mls/hr IVPB DAILY [facility] PRN Reason: Protocol Last Admin: 07/15/17 08:40 Dose: 50 mls/hr Potassium Chloride 10 meq/ (Sodium Chloride) 55 mls @ 55 mls/hr IV Q1 [facility] Stop: 07/15/17 15:59 Last Admin: 07/15/17 13:13 Dose: 55 mls/hr Insulin Human Lispro (Humalog) 0 units SC Q6H [facility] PRN Reason: Protocol Last Admin: 07/15/17 11:00 Dose: Not Given Levothyroxine Sodium (Synthroid) 50 mcg PO DAILY@0630 [facility] Last Admin: 07/15/17 06:43 Dose: 50 mcg Lisinopril (Zestril) 40 mg PO DAILY [facility] Last Admin: 07/15/17 08:55 Dose: 40 mg Metoprolol Tartrate (Lopressor) 5 mg IVP Q6 [facility] Last Admin: 07/15/17 10:05 Dose: 5 mg Pantoprazole Sodium (Protonix Inj) 40 mg IVP Q12 [facility] Last Admin: 07/15/17 08:54 Dose: 40 mg Sodium Bicarbonate (Sodium Bicarbonate Tab) 1,300 mg PO Q8 [facility] Last Admin: 07/02/17 16:23 Dose: 1,300 mg Thiamine HCl (Vitamin B1 Tab) 100 mg PO DAILY [facility] Last Admin: 07/15/17 08:54 Dose: 100 mg - Labs Labs: 07/15/17 05:37 07/15/17 05:37 PT 13.4 Seconds (9.8-13.1) H 07/08/17 12:50 INR 1.2 (0.9-1.2) 07/08/17 12:50 APTT 30.8 Seconds (25.6-37.1) 07/08/17 12:50
--- NOTE | 2017-07-15 15:02 | CP.PCM.PN ---
Subjective - Date & Time of Evaluation Date of Evaluation: 07/15/17 Time of Evaluation: 12:00 - Subjective Subjective: Awake, talking. Objective - Vital Signs/Intake and Output Vital Signs (last 24 hours): Temp Pulse Resp BP Pulse Ox 97.7 F 79 19 159/72 H 95 07/15/17 12:00 07/15/17 14:00 07/15/17 14:00 07/15/17 14:00 07/15/17 14:00 Intake and Output: 07/15/17 07/15/17 06:59 18:59 Intake Total 0 370 Output Total 1130 Balance -1130 370 - Medications Medications: Current Medications Albuterol/Ipratropium (Duoneb 3 Mg/0.5 Mg (3 Ml) Ud) 3 ml INH RQ6 PRN PRN Reason: Shortness of Breath Amlodipine Besylate (Norvasc) 10 mg PO DAILY [facility] Last Admin: 07/15/17 08:54 Dose: 10 mg Aspirin (Ecotrin) 81 mg PO DAILY [facility] Last Admin: 07/15/17 09:45 Dose: 81 mg Bacitracin (Bacitracin Oint) 1 applic TOP DAILY [facility] Last Admin: 07/15/17 08:51 Dose: 1 applic Calcium Acetate (Phoslo) 2,001 mg PO 0830,1200,1830 [facility] Last Admin: 07/14/17 12:26 Dose: 2,001 mg Dextrose (Dextrose 50% Inj) 0 ml IV STAT PRN; Protocol PRN Reason: Hypoglycemia Protocol Dextrose (Glutose 15) 0 gm PO ONCE PRN; Protocol PRN Reason: Hypoglycemia Protocol Dextrose (Dextrose 50% Inj) 50 ml IVP Q1H PRN PRN Reason: Hypoglycemia Epoetin Roel (Procrit) 14,000 unit SC MWF [facility] Last Admin: 07/14/17 10:41 Dose: 14,000 unit Fluconazole (Diflucan) 200 mg PO DAILY [facility] PRN Reason: Protocol Last Admin: 07/15/17 08:53 Dose: 200 mg Glucagon (Glucagen Diagnostic Kit) 0 mg IM STAT PRN; Protocol PRN Reason: Hypoglycemia Protocol Hydralazine HCl (Apresoline) 50 mg PO Q8 [facility] Last Admin: 07/15/17 08:51 Dose: 50 mg Hydralazine HCl (Apresoline) 10 mg IV Q6 PRN PRN Reason: SBP > 170 Levetiracetam 500 mg/ Sodium (Chloride) 105 mls @ 210 mls/hr IVPB Q12 [facility] Last Admin: 07/15/17 09:44 Dose: 210 mls/hr Cefepime HCl 1 gm/ Sodium (Chloride) 50 mls @ 50 mls/hr IVPB DAILY [facility] PRN Reason: Protocol Last Admin: 07/15/17 08:40 Dose: 50 mls/hr Potassium Chloride 10 meq/ (Sodium Chloride) 55 mls @ 55 mls/hr IV Q1 [facility] Stop: 07/15/17 15:59 Last Admin: 07/15/17 14:48 Dose: 55 mls/hr Insulin Human Lispro (Humalog) 0 units SC Q6H [facility] PRN Reason: Protocol Last Admin: 07/15/17 11:00 Dose: Not Given Levothyroxine Sodium (Synthroid) 50 mcg PO DAILY@0630 [facility] Last Admin: 07/15/17 06:43 Dose: 50 mcg Lisinopril (Zestril) 40 mg PO DAILY [facility] Last Admin: 07/15/17 08:55 Dose: 40 mg Metoprolol Tartrate (Lopressor) 5 mg IVP Q6 [facility] Last Admin: 07/15/17 10:05 Dose: 5 mg Pantoprazole Sodium (Protonix Inj) 40 mg IVP Q12 [facility] Last Admin: 07/15/17 08:54 Dose: 40 mg Sodium Bicarbonate (Sodium Bicarbonate Tab) 1,300 mg PO Q8 [facility] Last Admin: 07/02/17 16:23 Dose: 1,300 mg Thiamine HCl (Vitamin B1 Tab) 100 mg PO DAILY [facility] Last Admin: 07/15/17 08:54 Dose: 100 mg - Labs Labs: 07/15/17 12:51 07/15/17 05:37 PT 13.4 Seconds (9.8-13.1) H 07/08/17 12:50 INR 1.2 (0.9-1.2) 07/08/17 12:50 APTT 30.8 Seconds (25.6-37.1) 07/08/17 12:50 - Head Exam Head Exam: ATRAUMATIC - Eye Exam Eye Exam: Normal appearance - ENT Exam ENT Exam: Mucous Membranes Dry - Respiratory Exam Respiratory Exam: NORMAL BREATHING PATTERN - Cardiovascular Exam Cardiovascular Exam: +S1, +S2 - GI/Abdominal Exam GI & Abdominal Exam: Normal Bowel Sounds Assessment and Plan (1) Anemia Assessment & Plan: chronic disease, CKD Status: Chronic (2) MGUS (monoclonal gammopathy of unknown significance) Assessment & Plan: by bone marrow biopsy Status: Acute (3) Thrombocytopenia Assessment & Plan: resolved Status: Acute
[2017-07-15] MEDS ORDERED: Lidocaine 4% (Laryng-O-Jet) Kit MM ONE (18:11)
[2017-07-15] MEDS ORDERED: Succinylcholine 200 mg/10 ml Inj IV ONE (18:11)
[2017-07-15] MEDS ORDERED: Etomidate 20 mg/10ml Inj IV ONE (18:13)
[2017-07-15] MEDS ORDERED: Sodium Chloride 0.9% 1,000 ML IV ONE ×2 (18:35→18:38)
--- NOTE | 2017-07-15 18:56 | CP.PCM.PN ---
Subjective - Date & Time of Evaluation Date of Evaluation: 07/15/17 Time of Evaluation: 11:30 - Subjective Subjective: 66 yo M w/ pmh of htn, dm, CKD IIIB w/ 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 nephropathy, recurrent L pleural effusion, admitted with b/l pleural effusions, CHINTAN, hospital course complicated by brief cardiac arrest, b/l chest tube placement; Patient seen before chest CT that found large R pneumothorax, patient going to OR for chest tube replacement; otherwise, he was denying any shortness of breath on nasal cannula O2; tolerating PO meds and small amounts of jello/ pudding; Objective - Vital Signs/Intake and Output Vital Signs (last 24 hours): Temp Pulse Resp BP Pulse Ox 97.7 F 75 16 172/75 H 97 07/15/17 12:00 07/15/17 18:13 07/15/17 18:00 07/15/17 18:13 07/15/17 18:00 Intake and Output: 07/15/17 07/15/17 06:59 18:59 Intake Total 0 770 Output Total 1130 755 Balance -1130 15 - Medications Medications: Current Medications Albuterol/Ipratropium (Duoneb 3 Mg/0.5 Mg (3 Ml) Ud) 3 ml INH RQ6 PRN PRN Reason: Shortness of Breath Amlodipine Besylate (Norvasc) 10 mg PO DAILY [facility] Last Admin: 07/15/17 08:54 Dose: 10 mg Aspirin (Ecotrin) 81 mg PO DAILY [facility] Last Admin: 07/15/17 09:45 Dose: 81 mg Bacitracin (Bacitracin Oint) 1 applic TOP DAILY [facility] Last Admin: 07/15/17 08:51 Dose: 1 applic Calcium Acetate (Phoslo) 2,001 mg PO 0830,1200,1830 [facility] Last Admin: 07/14/17 12:26 Dose: 2,001 mg Dextrose (Dextrose 50% Inj) 0 ml IV STAT PRN; Protocol PRN Reason: Hypoglycemia Protocol Dextrose (Glutose 15) 0 gm PO ONCE PRN; Protocol PRN Reason: Hypoglycemia Protocol Dextrose (Dextrose 50% Inj) 50 ml IVP Q1H PRN PRN Reason: Hypoglycemia Epoetin Roel (Procrit) 14,000 unit SC MWF [facility] Last Admin: 07/14/17 10:41 Dose: 14,000 unit Fluconazole (Diflucan) 200 mg PO DAILY [facility] PRN Reason: Protocol Last Admin: 07/15/17 08:53 Dose: 200 mg Glucagon (Glucagen Diagnostic Kit) 0 mg IM STAT PRN; Protocol PRN Reason: Hypoglycemia Protocol Hydralazine HCl (Apresoline) 50 mg PO Q8 [facility] Last Admin: 07/15/17 18:10 Dose: Not Given Hydralazine HCl (Apresoline) 10 mg IV Q6 PRN PRN Reason: SBP > 170 Last Admin: 07/15/17 18:13 Dose: 10 mg Levetiracetam 500 mg/ Sodium (Chloride) 105 mls @ 210 mls/hr IVPB Q12 [facility] Last Admin: 07/15/17 09:44 Dose: 210 mls/hr Cefepime HCl 1 gm/ Sodium (Chloride) 50 mls @ 50 mls/hr IVPB DAILY [facility] PRN Reason: Protocol Last Admin: 07/15/17 08:40 Dose: 50 mls/hr Insulin Human Lispro (Humalog) 0 units SC Q6H [facility] PRN Reason: Protocol Last Admin: 07/15/17 17:00 Dose: Not Given Levothyroxine Sodium (Synthroid) 50 mcg PO DAILY@0630 [facility] Last Admin: 07/15/17 06:43 Dose: 50 mcg Lisinopril (Zestril) 40 mg PO DAILY [facility] Last Admin: 07/15/17 08:55 Dose: 40 mg Metoprolol Tartrate (Lopressor) 5 mg IVP Q6 [facility] Last Admin: 07/15/17 16:36 Dose: 5 mg Pantoprazole Sodium (Protonix Inj) 40 mg IVP Q12 [facility] Last Admin: 07/15/17 08:54 Dose: 40 mg Sodium Bicarbonate (Sodium Bicarbonate Tab) 1,300 mg PO Q8 [facility] Last Admin: 07/02/17 16:23 Dose: 1,300 mg Thiamine HCl (Vitamin B1 Tab) 100 mg PO DAILY [facility] Last Admin: 07/15/17 08:54 Dose: 100 mg - Labs Labs: 07/15/17 14:40 07/15/17 05:37 PT 13.4 Seconds (9.8-13.1) H 07/08/17 12:50 INR 1.2 (0.9-1.2) 07/08/17 12:50 APTT 30.8 Seconds (25.6-37.1) 07/08/17 12:50 - Constitutional Appears: Non-toxic, No Acute Distress - Eye Exam Eye Exam: absent: Scleral icterus - ENT Exam ENT Exam: Mucous Membranes Moist - Respiratory Exam Respiratory Exam: absent: Rales, Rhonchi, Respiratory Distress - Cardiovascular Exam Cardiovascular Exam: RRR, +S1, +S2 - GI/Abdominal Exam GI & Abdominal Exam: Soft. absent: Distended, Tenderness - Exam Additional comments: scrotal swelling much improved; - Extremities Exam Additional comments: marked edema especially of dependent areas, overall improved; - Neurological Exam Neurological Exam: Alert, Awake Additional comments: following commands; - Psychiatric Exam Psychiatric exam: Normal Affect. absent: Agitated - Skin Skin Exam: Warm. absent: Cyanosis Assessment and Plan (1) Acute renal failure Assessment & Plan: CHINTAN on CKD, resolving; renal function continues to improve (even after starting ARON inhibitor); recommend to decrease BP very slowly; Status: Acute (2) Nephrotic syndrome Assessment & Plan: Started on ARON inhibitor, lisinopril dose today increased to max; will re- assess tomorrow (after OR today) to add additional agent to control proteinuria (likely short acting cardizem; has had problems with hyperkalemia previously so will be careful about starting aldactone); Status: Chronic (3) Pleural effusion Assessment & Plan: Still draining on R; should send pleural fluid cytology from R if wasn't sent before; Status: Chronic (4) Hypertensive CKD (chronic kidney disease) Assessment & Plan: BP uncontrolled; will add meds after stabilized post-OR; Status: Acute (5) Chronic kidney disease, stage 3 (moderate) Status: Chronic (6) Hypothermia Status: Acute (7) Altered mental status Status: Acute (8) SIRS (systemic inflammatory response syndrome) Status: Acute (9) Anemia Assessment & Plan: Hgb relatively stable; continue EPO qMWF; Status: Chronic (10) Monoclonal gammopathy Status: Chronic
[2017-07-15] MEDS ORDERED: Rocuronium 10 mg/ml (5 ml) ONE (19:01)
[2017-07-15] MEDS ORDERED: Bacitracin OINT 15GM TOP ONE (20:10)
--- NOTE | 2017-07-15 20:48 | PCM.SURG1 ---
Surgeon's Initial Post Op Note - Surgeon's Notes Surgeon: Dr. Gannon Plant Breeder: Dr. West PGY2 Type of Anesthesia: General Endo Pre-Operative Diagnosis: Traumatic Pneumothorax Operative Findings: See operative report Post-Operative Diagnosis: Traumatic Pneumothorax Operation Performed: Mini throacotomy, Anterior and posterior chest tube placements, Pleural Biopsy Specimen/Specimens Removed: Pleura, Chest tube tip Estimated Blood Loss: EBL {In ML}: 20 Drains Used: Chest Tubes Date of Surgery/Procedure: 07/15/17 Time of Surgery/Procedure: 20:49
[2017-07-15] MEDS ORDERED: HYDROmorphone 0.5 mg/0.5 ml ISec IVP PRN (21:00)
--- NOTE | 2017-07-15 23:42 | CP.PCM.PCO ---
Addendum Addendum: 07/15/17 23:37 Patient seen back in ICU from post op at 11:20 pm. Alert, stable, intubated, able to responds to verbal commands nodding his head. As per nurse patient should remain intubated overnight as per anesthesiology recs.
[2017-07-16] MEDS: Insulin Lispro (humaLOG) 100 Units/ml Inj SC SCH ×4 (04:30→21:53)
[2017-07-16] MEDS: Metoprolol 1 mg/ml Inj IVP SCH ×4 (04:57→21:54)
[2017-07-16 04:59] LABS: ABG ALLEN TEST YES; ARTERIAL BLOOD GAS HCO3 25.2 mmol/L (21-28); ARTERIAL BLOOD GAS HEMOGLOBIN 10.3 g/dL (11.7-17.4); ARTERIAL BLOOD GAS O2 CAPACITY 14.3 mL/dL (16-24); ARTERIAL BLOOD GAS O2 CONTENT 14.2 ML/dL (15-23); ARTERIAL BLOOD GAS O2 SAT 99.4 % (95-98); ARTERIAL BLOOD GAS PCO2 37 mm/Hg (35-45); ARTERIAL BLOOD GAS PH 7.43 (7.35-7.45); ARTERIAL BLOOD GAS PO2 113 mm/Hg (80-100); ARTERIAL BLOOD GAS TCO2 25.7 mmol/L (22-28)
[2017-07-16 05:25] LABS: HEMOGLOBIN 9.8 g/dL (12.0-18.0); MEAN CORPUSCULAR HEMOGLOBIN 30.1 pg (27.0-31.0); MEAN CORPUSCULAR HGB CONC 32.7 g/dL (33.0-37.0); RBC 3.27 Mil/uL (4.40-5.90); RED CELL DISTRIBUTION WIDTH 16.3 % (11.5-14.5); WHITE BLOOD COUNT 5.7 K/uL (4.8-10.8)
[2017-07-16 05:36] LABS: ALBUMIN 2.3 g/dL (3.5-5.0); CALCIUM 8.9 mg/dL (8.4-10.2)
[2017-07-16 05:48] LABS: T4 7.96 ug/dl (5.5-11.0)
[2017-07-16 06:27] LABS: ALB/GLOB RATIO 0.8 (1.0-2.1)
[2017-07-16] MEDS: Levothyroxine 50 MCG TAB PO SCH (07:27)
[2017-07-16] MEDS: Bacitracin OINT 15GM TOP SCH (08:04)
--- NOTE | 2017-07-16 08:59 | CP.PCM.PN ---
Subjective - Date & Time of Evaluation Date of Evaluation: 07/16/17 Time of Evaluation: 07:00 - Subjective Subjective: Patient seen and examined bedside. Patient intubated s/p relocation right chest tube last night in OR secondary to Pneumothorax. Patient awake, alert, follow commands, moving hands. Right chest tube posterior 126 ml serosanguineous output. Right chest tube anterior 36 ml serosanguineous output. Left side chest tube 0 output. Salazar with dark yellow urine 60 ml. Objective - Vital Signs/Intake and Output Vital Signs (last 24 hours): Temp Pulse Resp BP Pulse Ox 99.9 F H 80 19 145/60 99 07/16/17 08:00 07/16/17 08:00 07/16/17 08:00 07/16/17 08:00 07/16/17 08:00 Intake and Output: 07/16/17 07/16/17 06:59 18:59 Intake Total 100 Output Total 472 50 Balance -372 -50 - Medications Medications: Current Medications Albuterol/Ipratropium (Duoneb 3 Mg/0.5 Mg (3 Ml) Ud) 3 ml INH RQ6 PRN PRN Reason: Shortness of Breath Amlodipine Besylate (Norvasc) 10 mg PO DAILY [facility] Last Admin: 07/15/17 08:54 Dose: 10 mg Aspirin (Ecotrin) 81 mg PO DAILY [facility] Last Admin: 07/15/17 09:45 Dose: 81 mg Bacitracin (Bacitracin Oint) 1 applic TOP DAILY [facility] Last Admin: 07/16/17 08:04 Dose: 1 applic Calcium Acetate (Phoslo) 2,001 mg PO 0830,1200,1830 [facility] Last Admin: 07/14/17 12:26 Dose: 2,001 mg Dextrose (Dextrose 50% Inj) 0 ml IV STAT PRN; Protocol PRN Reason: Hypoglycemia Protocol Dextrose (Glutose 15) 0 gm PO ONCE PRN; Protocol PRN Reason: Hypoglycemia Protocol Dextrose (Dextrose 50% Inj) 50 ml IVP Q1H PRN PRN Reason: Hypoglycemia Epoetin Roel (Procrit) 14,000 unit SC MWF [facility] Last Admin: 07/14/17 10:41 Dose: 14,000 unit Fluconazole (Diflucan) 200 mg PO DAILY [facility] PRN Reason: Protocol Last Admin: 07/15/17 08:53 Dose: 200 mg Glucagon (Glucagen Diagnostic Kit) 0 mg IM STAT PRN; Protocol PRN Reason: Hypoglycemia Protocol Hydralazine HCl (Apresoline) 50 mg PO Q8 [facility] Last Admin: 07/16/17 01:00 Dose: Not Given Hydralazine HCl (Apresoline) 10 mg IV Q6 PRN PRN Reason: SBP > 170 Last Admin: 07/15/17 18:13 Dose: 10 mg Levetiracetam 500 mg/ Sodium (Chloride) 105 mls @ 210 mls/hr IVPB Q12 [facility] Last Admin: 07/15/17 22:00 Dose: 210 mls/hr Cefepime HCl 1 gm/ Sodium (Chloride) 50 mls @ 50 mls/hr IVPB DAILY [facility] PRN Reason: Protocol Last Admin: 07/15/17 08:40 Dose: 50 mls/hr Insulin Human Lispro (Humalog) 0 units SC Q6H [facility] PRN Reason: Protocol Last Admin: 07/16/17 04:30 Dose: Not Given Levothyroxine Sodium (Synthroid) 50 mcg PO DAILY@0630 [facility] Last Admin: 07/16/17 07:27 Dose: Not Given Lisinopril (Zestril) 40 mg PO DAILY [facility] Last Admin: 07/15/17 08:55 Dose: 40 mg Metoprolol Tartrate (Lopressor) 5 mg IVP Q6 [facility] Last Admin: 07/16/17 04:57 Dose: 5 mg Pantoprazole Sodium (Protonix Inj) 40 mg IVP Q12 [facility] Last Admin: 07/16/17 08:10 Dose: 40 mg Sodium Bicarbonate (Sodium Bicarbonate Tab) 1,300 mg PO Q8 [facility] Last Admin: 07/02/17 16:23 Dose: 1,300 mg Thiamine HCl (Vitamin B1 Tab) 100 mg PO DAILY [facility] Last Admin: 07/15/17 08:54 Dose: 100 mg - Labs Labs: 07/16/17 04:20 07/16/17 04:20 PT 13.4 Seconds (9.8-13.1) H 07/08/17 12:50 INR 1.2 (0.9-1.2) 07/08/17 12:50 APTT 30.8 Seconds (25.6-37.1) 07/08/17 12:50 - Constitutional Appears: Non-toxic - Head Exam Head Exam: ATRAUMATIC, NORMOCEPHALIC - Eye Exam Eye Exam: Normal appearance - Neck Exam Neck Exam: Normal Inspection - Respiratory Exam Respiratory Exam: Decreased Breath Sounds. absent: Rales, Rhonchi, Wheezes Additional comments: b/l bibasal. Right side anterior and posterior chest tube. left side chest tube. left side triple lumen subclavian catheter. - Cardiovascular Exam Cardiovascular Exam: REGULAR RHYTHM, +S1, +S2 - GI/Abdominal Exam GI & Abdominal Exam: Soft, Normal Bowel Sounds. absent: Tenderness - Extremities Exam Extremities Exam: Normal Inspection. absent: Pedal Edema Additional comments: B/L hands and forearm edema improving 1+. left hand abrasion with scab formation - Neurological Exam Neurological Exam: Alert, Awake - Skin Skin Exam: absent: Petechiae Assessment and Plan - Assessment and Plan (Free Text) Plan: 66yo M w/ PMHx HTN, DM, DM nephropathy, monoclonal gammopathy, recurrent L pleural effusion admitted for sepsis, Hypothermia, CHINTAN on CKD currently intubated and DNR code status. 1) Acute Respiratory Failure -Intubated day # 1 s/p OR relocation right chest tube for Pneumotorax -Trial CPAP to try extubate today -sputum cx ross Alb fungus cx. , diflucan PO, mycamine day 14 2) Pneumotorax right side -resolved -s/p right side chest tube placement posterior and anterior -f/u CXR daily 3) Recurrent Left Pleural effusion, Transudate -Pulmonology consult appreciated: no benefit for bronchoscopy or lung biopsy -Cardiothoracic surgery consult appreciated, considering talc pleurodesis - s/p Chest tube placement POD#8 left side -s/p chest tube placement POD#6 right side. Relocation yesterday -s/p right side chest tube anterior POD#1 -quantiferon gold:indeterminate, AFB x4 neg -pleural cx with RBC 4) HAP -improved -c/w cefepime day # 21 5) DM nephropathy -Kidney biopsy 06/05/17: Diabetic nephropathy, nodular glomerulosclerosis, associated with aprox 40 % globally sclerosed glomeruli( calss III), 10-15 % segmentally sclerosed glomeruli, docal moderate interstitial fibrosis and mod vascular sclerosis, including marked hyaline arteriolosclerosis.NO EVIDENCE OF MONOCLONAL LIGHT OR HEAVY CHAIN-RELATED RENAL DISEASE. -Nephro consult appreciated: Lisinopril 30 mg, Hydralazine 50 Q8h -Renal duplex: no renal vein thrombosis 6) CHINTAN on CKD stage 4 w/ new onset of ATN - Nephorologist consult appreciated -no steroids, no Hd -lisinopril increased from 30 mg daily 7) Hypothyroidism, subclinical -Econdrinologist consult appreciated -c/w levothryroxin 8) Hyperprolactinemia -Prolactin trending down -Endocrionologist consult suggested -MRI brain:no inracraneal hemorrhage, chronic lacunar infarct b/l cerebral, changes in dali haydee represent chronic ischemia or sequela of osmotic myelonilolysis not excluded.chronic b/l basal nuclei lacunar infarcts, mastoid ppasification secondary to intubation 9) Pressure Ulcer and TDI -resolved 10) pEF CHF -Echo 05/31/17 normal EF 60-65% -c/w labetalol, hydralazine 50 mg Q8h -lisinopril 30 mg daily 11) DM 2 -SSI 12) HTN - Hydralazine 50 Q8. To keep systolic BP 150 - Metropolol Tartrate 5 mg IV deb q 6h -lisinopril 30mg daily 13) Anemia -secondary to CKD -s/p transfucion 4u pRBC -Hgb:9.8 -C/W procrit 14) DVT prophylaxis -Lovenox 40 mg sc (Cr Cl 35 ml) 15) GI prophylaxis -Pantoprazol 40 mg IV
[2017-07-16] MEDS: levETIRAcetam 500 MG in Sodium Chloride 0.9% 100 ML IVPB SCH ×2 (09:48→20:10)
[2017-07-16] MEDS: Epoetin Alfa 20000 UNIT/ML Inj SC SCH (09:50)
--- NOTE | 2017-07-16 09:56 | CP.PCM.PN ---
Subjective - Date & Time of Evaluation Date of Evaluation: 07/16/17 Time of Evaluation: 09:52 - Subjective Subjective: Mr. Durand was seen and examined at the bedside in ICU. He is awake opens his eyes with tactile stimuli. He is re-intubated yesterday. He had his right chesttube re-positioned and inserted one more in the OR. It is draining to a minimal peach-colored drainage connected to suction.He is able to move his bilateral lower and upper extremities with pain stimuli. He remains on bilateral wrist restraints and SCD's. There was no untoward events overnight. Objective - Vital Signs/Intake and Output Vital Signs (last 24 hours): Temp Pulse Resp BP Pulse Ox 99.9 F H 80 20 146/62 99 07/16/17 08:00 07/16/17 09:51 07/16/17 09:00 07/16/17 09:51 07/16/17 09:00 Intake and Output: 07/16/17 07/16/17 06:59 18:59 Intake Total 100 Output Total 472 50 Balance -372 -50 - Medications Medications: Current Medications Albuterol/Ipratropium (Duoneb 3 Mg/0.5 Mg (3 Ml) Ud) 3 ml INH RQ6 PRN PRN Reason: Shortness of Breath Amlodipine Besylate (Norvasc) 10 mg PO DAILY [facility] Last Admin: 07/15/17 08:54 Dose: 10 mg Aspirin (Ecotrin) 81 mg PO DAILY [facility] Last Admin: 07/15/17 09:45 Dose: 81 mg Bacitracin (Bacitracin Oint) 1 applic TOP DAILY [facility] Last Admin: 07/16/17 08:04 Dose: 1 applic Calcium Acetate (Phoslo) 2,001 mg PO 0830,1200,1830 [facility] Last Admin: 07/14/17 12:26 Dose: 2,001 mg Dextrose (Dextrose 50% Inj) 0 ml IV STAT PRN; Protocol PRN Reason: Hypoglycemia Protocol Dextrose (Glutose 15) 0 gm PO ONCE PRN; Protocol PRN Reason: Hypoglycemia Protocol Dextrose (Dextrose 50% Inj) 50 ml IVP Q1H PRN PRN Reason: Hypoglycemia Epoetin Roel (Procrit) 14,000 unit SC MWF [facility] Last Admin: 07/16/17 09:50 Dose: 14,000 unit Fluconazole (Diflucan) 200 mg PO DAILY [facility] PRN Reason: Protocol Last Admin: 07/15/17 08:53 Dose: 200 mg Glucagon (Glucagen Diagnostic Kit) 0 mg IM STAT PRN; Protocol PRN Reason: Hypoglycemia Protocol Hydralazine HCl (Apresoline) 50 mg PO Q8 [facility] Last Admin: 07/16/17 09:49 Dose: Not Given Hydralazine HCl (Apresoline) 10 mg IV Q6 PRN PRN Reason: SBP > 170 Last Admin: 07/15/17 18:13 Dose: 10 mg Levetiracetam 500 mg/ Sodium (Chloride) 105 mls @ 210 mls/hr IVPB Q12 [facility] Last Admin: 07/16/17 09:48 Dose: 210 mls/hr Cefepime HCl 1 gm/ Sodium (Chloride) 50 mls @ 50 mls/hr IVPB DAILY [facility] PRN Reason: Protocol Last Admin: 07/15/17 08:40 Dose: 50 mls/hr Potassium Chloride 10 meq/ (Sodium Chloride) 55 mls @ 55 mls/hr IV Q1 [facility] Stop: 07/16/17 11:59 Insulin Human Lispro (Humalog) 0 units SC Q6H [facility] PRN Reason: Protocol Last Admin: 07/16/17 04:30 Dose: Not Given Levothyroxine Sodium (Synthroid) 50 mcg PO DAILY@0630 [facility] Last Admin: 07/16/17 07:27 Dose: Not Given Lisinopril (Zestril) 40 mg PO DAILY [facility] Last Admin: 07/15/17 08:55 Dose: 40 mg Metoprolol Tartrate (Lopressor) 5 mg IVP Q6 [facility] Last Admin: 07/16/17 09:51 Dose: 5 mg Pantoprazole Sodium (Protonix Inj) 40 mg IVP Q12 [facility] Last Admin: 07/16/17 08:10 Dose: 40 mg Sodium Bicarbonate (Sodium Bicarbonate Tab) 1,300 mg PO Q8 [facility] Last Admin: 07/02/17 16:23 Dose: 1,300 mg Thiamine HCl (Vitamin B1 Tab) 100 mg PO DAILY [facility] Last Admin: 07/15/17 08:54 Dose: 100 mg - Labs Labs: 07/16/17 04:20 07/16/17 04:20 PT 13.4 Seconds (9.8-13.1) H 07/08/17 12:50 INR 1.2 (0.9-1.2) 07/08/17 12:50 APTT 30.8 Seconds (25.6-37.1) 07/08/17 12:50 - Constitutional Appears: No Acute Distress - Head Exam Head Exam: NORMAL INSPECTION - Neurological Exam Neurological Exam: Awake Neuro motor strength exam: Left Upper Extremity: 2/1, Right Upper Extremity: 2/1 , Left Lower Extremity: 2/1, Right Lower Extremity: 2/1 Additional comments: Neurological unchanged from previous examination. Assessment and Plan (1) Altered mental status Assessment & Plan: Case discussed with Dr. Das, continue all current medical regimen. There is no new recommendation from neurology. Status: Acute
[2017-07-16] MEDS: Cefepime 1 GM in Sodium Chloride 0.9% 50 ML IVPB SCH (11:15)
--- NOTE | 2017-07-16 11:43 | CP.PCM.PN ---
Subjective - Date & Time of Evaluation Date of Evaluation: 07/16/17 Time of Evaluation: 11:40 - Subjective Subjective: CT Surgery Progress Note for Dr. Gannon This 66M was seen and examined this AM at bedside. No acute events reported overnight, patient with minimal vent requirments this AM. AM AP CXR shows no pneumo and R chest tubes in apex. Anterior R CT with 40cc serosang, R Posterior 400cc serosang, L CT minimal output. Dressings CDI. Objective - Vital Signs/Intake and Output Vital Signs (last 24 hours): Temp Pulse Resp BP Pulse Ox 99.9 F H 77 16 152/60 H 100 07/16/17 08:00 07/16/17 10:00 07/16/17 10:00 07/16/17 10:00 07/16/17 10:00 Intake and Output: 07/16/17 07/16/17 06:59 18:59 Intake Total 100 150 Output Total 472 50 Balance -372 100 - Medications Medications: Current Medications Albuterol/Ipratropium (Duoneb 3 Mg/0.5 Mg (3 Ml) Ud) 3 ml INH RQ6 PRN PRN Reason: Shortness of Breath Amlodipine Besylate (Norvasc) 10 mg PO DAILY [facility] Last Admin: 07/15/17 08:54 Dose: 10 mg Aspirin (Ecotrin) 81 mg PO DAILY [facility] Last Admin: 07/15/17 09:45 Dose: 81 mg Bacitracin (Bacitracin Oint) 1 applic TOP DAILY [facility] Last Admin: 07/16/17 08:04 Dose: 1 applic Calcium Acetate (Phoslo) 2,001 mg PO 0830,1200,1830 [facility] Last Admin: 07/14/17 12:26 Dose: 2,001 mg Dextrose (Dextrose 50% Inj) 0 ml IV STAT PRN; Protocol PRN Reason: Hypoglycemia Protocol Dextrose (Glutose 15) 0 gm PO ONCE PRN; Protocol PRN Reason: Hypoglycemia Protocol Dextrose (Dextrose 50% Inj) 50 ml IVP Q1H PRN PRN Reason: Hypoglycemia Epoetin Roel (Procrit) 14,000 unit SC MWF [facility] Last Admin: 07/16/17 09:50 Dose: 14,000 unit Fluconazole (Diflucan) 200 mg PO DAILY [facility] PRN Reason: Protocol Last Admin: 07/15/17 08:53 Dose: 200 mg Glucagon (Glucagen Diagnostic Kit) 0 mg IM STAT PRN; Protocol PRN Reason: Hypoglycemia Protocol Hydralazine HCl (Apresoline) 50 mg PO Q8 [facility] Last Admin: 07/16/17 09:49 Dose: Not Given Hydralazine HCl (Apresoline) 10 mg IV Q6 PRN PRN Reason: SBP > 170 Last Admin: 07/15/17 18:13 Dose: 10 mg Levetiracetam 500 mg/ Sodium (Chloride) 105 mls @ 210 mls/hr IVPB Q12 [facility] Last Admin: 07/16/17 09:48 Dose: 210 mls/hr Cefepime HCl 1 gm/ Sodium (Chloride) 50 mls @ 50 mls/hr IVPB DAILY [facility] PRN Reason: Protocol Last Admin: 07/15/17 08:40 Dose: 50 mls/hr Potassium Chloride 10 meq/ (Sodium Chloride) 55 mls @ 55 mls/hr IV Q1 [facility] Stop: 07/16/17 11:59 Last Admin: 07/16/17 10:44 Dose: 55 mls/hr Insulin Human Lispro (Humalog) 0 units SC Q6H [facility] PRN Reason: Protocol Last Admin: 07/16/17 04:30 Dose: Not Given Levothyroxine Sodium (Synthroid) 50 mcg PO DAILY@0630 [facility] Last Admin: 07/16/17 07:27 Dose: Not Given Lisinopril (Zestril) 40 mg PO DAILY [facility] Last Admin: 07/15/17 08:55 Dose: 40 mg Metoprolol Tartrate (Lopressor) 5 mg IVP Q6 [facility] Last Admin: 07/16/17 09:51 Dose: 5 mg Pantoprazole Sodium (Protonix Inj) 40 mg IVP Q12 [facility] Last Admin: 07/16/17 08:10 Dose: 40 mg Sodium Bicarbonate (Sodium Bicarbonate Tab) 1,300 mg PO Q8 [facility] Last Admin: 07/02/17 16:23 Dose: 1,300 mg Thiamine HCl (Vitamin B1 Tab) 100 mg PO DAILY [facility] Last Admin: 07/15/17 08:54 Dose: 100 mg - Labs Labs: 07/16/17 04:20 07/16/17 04:20 PT 13.4 Seconds (9.8-13.1) H 07/08/17 12:50 INR 1.2 (0.9-1.2) 07/08/17 12:50 APTT 30.8 Seconds (25.6-37.1) 07/08/17 12:50 - Constitutional Appears: Non-toxic, No Acute Distress - Head Exam Head Exam: ATRAUMATIC, NORMOCEPHALIC - Eye Exam Eye Exam: EOMI, Normal appearance - ENT Exam ENT Exam: Mucous Membranes Moist - Respiratory Exam Respiratory Exam: NORMAL BREATHING PATTERN Additional comments: 2 R chest tubes to suction , 1 L chest tube to water seal. Outputs in subjective. - Cardiovascular Exam Cardiovascular Exam: +S1, +S2 - GI/Abdominal Exam GI & Abdominal Exam: Soft Assessment and Plan - Assessment and Plan (Free Text) Assessment: 66M POD#1 s/p mini R mini thoracotamy and anterior and posterior chest tube placement, and removal of traumatic chest tube. Patient doing well R CTs to suction L CT to water seal Monitor outputs Followup daily CXRs Extubate when ready per ICU team. D/W Dr. Jagdeep West PGY2
--- NOTE | 2017-07-16 11:47 | RAD ---
PROCEDURE: CHEST RADIOGRAPH, 1 VIEW HISTORY: intubated, chest tube COMPARISON: 07/15/2017 FINDINGS: LUNGS: Clear. PLEURA: Bilateral small pleural effusion, grossly unchanged. No pneumothorax. 2 right apical chest tubes, unchanged. CARDIOVASCULAR: Normal heart size. ET OSSEOUS STRUCTURES: No significant abnormalities. VISUALIZED UPPER ABDOMEN: Normal. OTHER FINDINGS: Tube unchanged. IMPRESSION: Small bilateral pleural effusion. Two right chest tubes. No pneumothorax. No infiltrate.
[2017-07-16] MEDS: Dextrose 5%/0.45% NS 1,000 ML IV SCH ×2 (12:45→20:11)
--- NOTE | 2017-07-16 13:20 | CP.CCUPN ---
<Lori Magana - Last Filed: 07/16/17 13:41> CCU Subjective - Physician Review Subjective (Free Text): Patient reintubated for procedure on 07/15/17. Somnolent, easily arousable to voice/touch. Not following commands. . Patient taken to OR last night, received 1 unit PRBCs/ 1 unit of platelets. Taken to OR for right sided pnemothorax, chest tube in lung parenchyma. chest tube was removed, 2 new chest tubes placed in OR. Right chest tubes to suction, left chest tube to gravity. ROS unable to obtain, patient intubated. Vital signs reviewed. afebrile, HR 70-80s, NSR. BP 140-150s. O2 100% on FIO2 35% Labs: H.8, Na: 150, K+ 3.5. Accuchecks reviewed. A/P: 66 year old male with PMH of HTN, DM, CKD, w/ nephrotic syndrome, monoclonal gammopathy, recurrent L pleural effusion, admitted with hypothermia, CHINTAN and altered mental status. Hypothermia/CHINTAN/AMS have resolved however patient then had subsequent respiratory failure requiring intubation thought to be 2' to persistent pleural effusions bilaterally vs PNA. Patient now reintubated. Attempt to wean today. Neuro: No sedation. Somnolent not following commands, will reassess Cardiovascular: HTN: On Hydralazine 50mg q8, Lopressor 5mg q6, Norvasc 10mg, started on Zestril 40mg, has Hydralazine 10mg q 6 PRN Respiratory: COPD/Bilateral pleural effusions.Pt has 2 chest tubes in right side : anterior/posterior tubes. 1 left sided chest tube. Bilateral breath sounds clear, bilateral lower lobes with decreased breath sounds. Renal: -CKD stage III-IV: on lisinopril, nephrology following for nephrotic syndrome. Endocrine: - DM 2, blood glucose monitoring, sliding scale insulin, hypothyroidism: on synthroid Heme: -Anemia of chronic disease: hg 9.8 s/p transfusion with 1 unit PRBC, received in unit of platelets. ID: Cefepime Prophylaxis: DVT: SCDS, GI: Protonix Case d/w Dr. Mata CCU Objective - Vital Signs / Intake & Output Vital Signs (Last 4 hours): Vital Signs Temp Pulse Resp BP Pulse Ox 01/17/18 12:00 98.8 F 81 28 H 152/59 H 99 07/16/17 10:00 77 16 152/60 H 100 07/16/17 09:51 80 146/62 07/16/17 09:49 80 146/62 Intake and Output (Last 8hrs): Intake & Output 07/15/17 07/16/17 07/16/17 22:59 06:59 14:59 Intake Total 1500 0 150 Output Total 865 362 50 Balance 635 -362 100 Intake: IV 1100 0 Intake, Piggyback 100 150 Blood Product 300 Output: Chest Tube Drainage 305 162 Left Mid-Axillary Chest 5 0 Right 36 Right Lateral Chest 300 126 Urine 560 200 50 Urethral (Salazar) 450 200 50 Other: # Bowel Movements 1 - Physical Exam Head: Positive for: Atraumatic, Normocephalic Conjunctiva: Positive for: Normal. Negative for: Icteric Mouth: Positive for: Moist Mucous Membranes, Other (ET tube). Negative for: Dry , Drooling Nose (External): Positive for: Abrasion (Nasal Abrasion-almost healed) Neck: Positive for: Other (central line: left neck in place with dressing, biopatch still over line. clean and dry.) Respiratory/Chest: Positive for: Clear to Auscultation (anteriorly bilateraly), Good Air Exchange (on mechancal ventilation), Decreased Breath Sounds ( bilateral lung bases) Cardiovascular: Positive for: Regular Rate and Rhythm, Normal S1, S2. Negative for: Tachycardic, Bradycardic Abdomen: Positive for: Other (soft). Negative for: Tenderness, Distention Genitourinary Male: Positive for: Penile Swelling, Testicle Swelling Upper Extremity: Positive for: Edema (bilateral 3+ pitting edema; right > left) Lower Extremity: Positive for: Normal Inspection. Negative for: Edema, Tenderness Neurological: Positive for: Other (somnolent, arousable, intubated, not following commands) Skin: Positive for: Warm, Dry, Other (skin tear back of left hand) - Medications Active Medications: Active Medications Generic Name Dose Route Start Last Admin Trade Name Freq PRN Reason Stop Dose Admin Albumin Human 12.5 gm 07/16/17 13:00 Albumin Human 25% (12.5 Gm/50 Ml) IV 07/16/17 19:01 Q6H [facility]OMAS Albuterol/Ipratropium 3 ml 07/14/17 15:00 Duoneb 3 Mg/0.5 Mg (3 Ml) Ud INH RQ6 PRN Shortness of Breath Amlodipine Besylate 10 mg 07/05/17 09:00 07/15/17 08:54 Norvasc PO 10 mg DAILY THOMAS Administration Aspirin 81 mg 07/14/17 09:00 07/15/17 09:45 Ecotrin PO 81 mg DAILY THOMAS Administration Bacitracin 1 applic 07/11/17 09:00 07/16/17 08:04 Bacitracin Oint TOP 1 applic DAILY THOMAS Administration Calcium Acetate 2,001 mg 07/05/17 08:30 07/14/17 12:26 Phoslo PO 2,001 mg 0830,1200,1830 [facility] Administration Dextrose 0 ml 06/22/17 22:36 Dextrose 50% Inj IV STAT PRN Hypoglycemia Protocol Protocol Dextrose 0 gm 06/22/17 22:36 Glutose 15 PO ONCE PRN Hypoglycemia Protocol Protocol Dextrose 50 ml 07/14/17 14:52 Dextrose 50% Inj IVP Q1H PRN Hypoglycemia Epoetin Roel 14,000 unit 07/07/17 09:00 07/16/17 09:50 Procrit SC 14,000 unit MWF [facility]OMAS Administration Fluconazole 200 mg 07/12/17 09:00 07/15/17 08:53 Diflucan PO 200 mg DAILY THOMAS Administration Protocol Glucagon 0 mg 06/22/17 22:36 Glucagen Diagnostic Kit IM STAT PRN Hypoglycemia Protocol Protocol Hydralazine HCl 50 mg 07/13/17 12:48 07/16/17 09:49 Apresoline PO Not Given Q8 THOMAS Hydralazine HCl 10 mg 07/15/17 01:28 07/15/17 18:13 Apresoline IV 10 mg Q6 PRN Administration SBP > 170 Levetiracetam 500 mg/ Sodium 105 mls @ 210 mls/hr 07/04/17 21:00 07/16/17 09: 48 Chloride IVPB 210 mls/hr Q12 THOMAS Administration Cefepime HCl 1 gm/ Sodium 50 mls @ 50 mls/hr 07/13/17 09:00 07/15/17 08:40 Chloride IVPB 50 mls/hr DAILY THOMAS Administration Protocol Dextrose/Sodium Chloride 1,000 mls @ 125 mls/hr 07/16/17 12:45 Dextrose 5%/0.45% Ns 1000 Ml IV 07/17/17 12:45 .Q8H [facility] Insulin Human Lispro 0 units 07/12/17 09:45 07/16/17 11:00 Humalog SC Not Given Q6H [facility] Protocol Levothyroxine Sodium 50 mcg 07/05/17 06:30 07/16/17 07:27 Synthroid PO Not Given DAILY@0630 [facility] Lisinopril 40 mg 07/15/17 09:00 07/15/17 08:55 Zestril PO 40 mg DAILY THOMAS Administration Metoprolol Tartrate 5 mg 07/14/17 14:51 07/16/17 09:51 Lopressor IVP 5 mg Q6 [facility] Administration Pantoprazole Sodium 40 mg 07/08/17 21:00 07/16/17 08:10 Protonix Inj IVP 40 mg Q12 [facility] Administration Sodium Bicarbonate 1,300 mg 06/30/17 17:00 07/02/17 16:23 Sodium Bicarbonate Tab PO 1,300 mg Q8 [facility] Administration Thiamine HCl 100 mg 07/15/17 09:00 07/15/17 08:54 Vitamin B1 Tab PO 100 mg DAILY [facility]OMAS Administration - Patient Studies Lab Studies: Microbiology Studies 07/08/17 09:24 Mycobacterial Culture - Preliminary Other: Please Indicate 07/08/17 06:15 Mycobacterial Culture - Preliminary Other: Please Indicate 07/14/17 19:35 Gram Stain - Final Trachasp 07/07/17 06:17 Mycobacterial Culture - Preliminary Other: Please Indicate 07/06/17 10:31 Mycobacterial Culture - Preliminary Other: Please Indicate Lab Studies 07/16/17 07/16/17 07/16/17 Range/Units 11:10 04:50 04:20 WBC (4.8-10.8) K/uL RBC (4.40-5.90) Mil/uL Hgb Hct MCV (80.0-94.0) fl MCH (27.0-31.0) pg MCHC (33.0-37.0) g/dL RDW (11.5-14.5) % Plt Count (130-400) K/uL pCO2 37 (35-45) mm/Hg pO2 113 H (80-100) mm/Hg HCO3 25.2 (21-28) mmol/L ABG pH 7.43 (7.35-7.45) ABG Total CO2 25.7 (22-28) mmol/L ABG O2 Saturation 99.4 H (95-98) % ABG O2 Content 14.2 L (15-23) ML/dL ABG Base Excess 0.4 (-2.0-3.0) mmol/L ABG Hemoglobin 10.3 L (11.7-17.4) g/dL ABG Carboxyhemoglobin 1.3 (0.5-1.5) % POC ABG HHb (Measured) 0.6 (0.0-5.0) % ABG Methemoglobin 1.4 (0.0-3.0) % ABG O2 Capacity 14.3 L (16-24) mL/dL Andry Test Yes A-a O2 Difference 197.0 mm/Hg Hgb O2 Saturation 96.6 (95.0-98.0) % Vent Mode A/c Mechanical Rate 10 FiO2 50.0 % Tidal Volume 450 PEEP 5 Sodium 150 H (132-148) mmol/l Potassium 3.5 L (3.6-5.0) MMOL/L Chloride 116 H (98-107) mmol/L Carbon Dioxide 26 (22-30) mmol/L Anion Gap 12 (10-20) BUN 38 H (9-20) mg/dl Creatinine 1.9 H (0.8-1.5) mg/dl Est GFR ( Amer) 43 Est GFR (Non-Af Amer) 36 POC Glucose (mg/dL) 83 (65-110) mg/dL Random Glucose 102 (75-110) mg/dL Calcium 8.9 (8.4-10.2) mg/dL Total Bilirubin 0.4 (0.2-1.3) mg/dl AST 22 (17-59) U/L ALT 39 (21-72) U/L Alkaline Phosphatase 155 H (38-126) U/L Total Protein 5.0 L (6.3-8.2) G/DL Albumin 2.3 L (3.5-5.0) g/dL Globulin 2.7 (2.2-3.9) gm/dL Albumin/Globulin Ratio 0.8 L (1.0-2.1) Thyroxine (T4) 7.96 (5.5-11.0) ug/dl TSH 3rd Generation 2.62 (0.46-4.68) mIU/ML Levetiracetam mcg/mL Blood Type Antibody Screen Crossmatch BBK History Checked 07/16/17 07/16/17 07/15/17 Range/Units 04:20 04:08 21:41 WBC 5.7 (4.8-10.8) K/uL RBC 3.27 L (4.40-5.90) Mil/uL Hgb 9.8 L D Hct 30.1 L MCV 92.0 (80.0-94.0) fl MCH 30.1 (27.0-31.0) pg MCHC 32.7 L (33.0-37.0) g/dL RDW 16.3 H (11.5-14.5) % Plt Count 268 (130-400) K/uL pCO2 (35-45) mm/Hg pO2 (80-100) mm/Hg HCO3 (21-28) mmol/L ABG pH (7.35-7.45) ABG Total CO2 (22-28) mmol/L ABG O2 Saturation (95-98) % ABG O2 Content (15-23) ML/dL ABG Base Excess (-2.0-3.0) mmol/L ABG Hemoglobin (11.7-17.4) g/dL ABG Carboxyhemoglobin (0.5-1.5) % POC ABG HHb (Measured) (0.0-5.0) % ABG Methemoglobin (0.0-3.0) % ABG O2 Capacity (16-24) mL/dL Andry Test A-a O2 Difference mm/Hg Hgb O2 Saturation (95.0-98.0) % Vent Mode Mechanical Rate FiO2 % Tidal Volume PEEP Sodium (132-148) mmol/l Potassium (3.6-5.0) MMOL/L Chloride (98-107) mmol/L Carbon Dioxide (22-30) mmol/L Anion Gap (10-20) BUN (9-20) mg/dl Creatinine (0.8-1.5) mg/dl Est GFR ( Amer) Est GFR (Non-Af Amer) POC Glucose (mg/dL) 104 118 H (65-110) mg/dL Random Glucose (75-110) mg/dL Calcium (8.4-10.2) mg/dL Total Bilirubin (0.2-1.3) mg/dl AST (17-59) U/L ALT (21-72) U/L Alkaline Phosphatase (38-126) U/L Total Protein (6.3-8.2) G/DL Albumin (3.5-5.0) g/dL Globulin (2.2-3.9) gm/dL Albumin/Globulin Ratio (1.0-2.1) Thyroxine (T4) (5.5-11.0) ug/dl TSH 3rd Generation (0.46-4.68) mIU/ML Levetiracetam mcg/mL Blood Type Antibody Screen Crossmatch BBK History Checked 07/15/17 07/15/17 07/15/17 Range/Units 16:46 14:40 13:10 WBC (4.8-10.8) K/uL RBC (4.40-5.90) Mil/uL Hgb 0.0 L* D Hct 0.0 L MCV (80.0-94.0) fl MCH (27.0-31.0) pg MCHC (33.0-37.0) g/dL RDW (11.5-14.5) % Plt Count (130-400) K/uL pCO2 (35-45) mm/Hg pO2 (80-100) mm/Hg HCO3 (21-28) mmol/L ABG pH (7.35-7.45) ABG Total CO2 (22-28) mmol/L ABG O2 Saturation (95-98) % ABG O2 Content (15-23) ML/dL ABG Base Excess (-2.0-3.0) mmol/L ABG Hemoglobin (11.7-17.4) g/dL ABG Carboxyhemoglobin (0.5-1.5) % POC ABG HHb (Measured) (0.0-5.0) % ABG Methemoglobin (0.0-3.0) % ABG O2 Capacity (16-24) mL/dL Andry Test A-a O2 Difference mm/Hg Hgb O2 Saturation (95.0-98.0) % Vent Mode Mechanical Rate FiO2 % Tidal Volume PEEP Sodium (132-148) mmol/l Potassium (3.6-5.0) MMOL/L Chloride (98-107) mmol/L Carbon Dioxide (22-30) mmol/L Anion Gap (10-20) BUN (9-20) mg/dl Creatinine (0.8-1.5) mg/dl Est GFR ( Amer) Est GFR (Non-Af Amer) POC Glucose (mg/dL) 110 (65-110) mg/dL Random Glucose (75-110) mg/dL Calcium (8.4-10.2) mg/dL Total Bilirubin (0.2-1.3) mg/dl AST (17-59) U/L ALT (21-72) U/L Alkaline Phosphatase (38-126) U/L Total Protein (6.3-8.2) G/DL Albumin (3.5-5.0) g/dL Globulin (2.2-3.9) gm/dL Albumin/Globulin Ratio (1.0-2.1) Thyroxine (T4) (5.5-11.0) ug/dl TSH 3rd Generation (0.46-4.68) mIU/ML Levetiracetam mcg/mL Blood Type A NEGATIVE Antibody Screen Negative Crossmatch See Detail BBK History Checked Patient has bt 07/15/17 07/13/17 Range/Units 12:51 13:50 WBC (4.8-10.8) K/uL RBC (4.40-5.90) Mil/uL Hgb Cancelled Hct Cancelled MCV (80.0-94.0) fl MCH (27.0-31.0) pg MCHC (33.0-37.0) g/dL RDW (11.5-14.5) % Plt Count (130-400) K/uL pCO2 (35-45) mm/Hg pO2 (80-100) mm/Hg HCO3 (21-28) mmol/L ABG pH (7.35-7.45) ABG Total CO2 (22-28) mmol/L ABG O2 Saturation (95-98) % ABG O2 Content (15-23) ML/dL ABG Base Excess (-2.0-3.0) mmol/L ABG Hemoglobin (11.7-17.4) g/dL ABG Carboxyhemoglobin (0.5-1.5) % POC ABG HHb (Measured) (0.0-5.0) % ABG Methemoglobin (0.0-3.0) % ABG O2 Capacity (16-24) mL/dL Andry Test A-a O2 Difference mm/Hg Hgb O2 Saturation (95.0-98.0) % Vent Mode Mechanical Rate FiO2 % Tidal Volume PEEP Sodium (132-148) mmol/l Potassium (3.6-5.0) MMOL/L Chloride (98-107) mmol/L Carbon Dioxide (22-30) mmol/L Anion Gap (10-20) BUN (9-20) mg/dl Creatinine (0.8-1.5) mg/dl Est GFR ( Amer) Est GFR (Non-Af Amer) POC Glucose (mg/dL) (65-110) mg/dL Random Glucose (75-110) mg/dL Calcium (8.4-10.2) mg/dL Total Bilirubin (0.2-1.3) mg/dl AST (17-59) U/L ALT (21-72) U/L Alkaline Phosphatase (38-126) U/L Total Protein (6.3-8.2) G/DL Albumin (3.5-5.0) g/dL Globulin (2.2-3.9) gm/dL Albumin/Globulin Ratio (1.0-2.1) Thyroxine (T4) (5.5-11.0) ug/dl TSH 3rd Generation (0.46-4.68) mIU/ML Levetiracetam 34.7 mcg/mL Blood Type Antibody Screen Crossmatch BBK History Checked Laboratory Results - last 24 hr 07/13/17 07/15/17 07/15/17 13:50 12:51 13:10 WBC RBC Hgb Cancelled Hct Cancelled MCV MCH MCHC RDW Plt Count pCO2 pO2 HCO3 ABG pH ABG Total CO2 ABG O2 Saturation ABG O2 Content ABG Base Excess ABG Hemoglobin ABG Carboxyhemoglobin POC ABG HHb (Measured) ABG Methemoglobin ABG O2 Capacity Andry Test A-a O2 Difference Hgb O2 Saturation Vent Mode Mechanical Rate FiO2 Tidal Volume PEEP Sodium Potassium Chloride Carbon Dioxide Anion Gap BUN Creatinine Est GFR ( Amer) Est GFR (Non-Af Amer) POC Glucose (mg/dL) Random Glucose Calcium Total Bilirubin AST ALT Alkaline Phosphatase Total Protein Albumin Globulin Albumin/Globulin Ratio Thyroxine (T4) TSH 3rd Generation Levetiracetam 34.7 Blood Type A NEGATIVE Antibody Screen Negative Crossmatch See Detail BBK History Checked Patient has bt 07/15/17 07/15/17 07/15/17 14:40 16:46 21:41 WBC RBC Hgb 0.0 L* D Hct 0.0 L MCV MCH MCHC RDW Plt Count pCO2 pO2 HCO3 ABG pH ABG Total CO2 ABG O2 Saturation ABG O2 Content ABG Base Excess ABG Hemoglobin ABG Carboxyhemoglobin POC ABG HHb (Measured) ABG Methemoglobin ABG O2 Capacity Andry Test A-a O2 Difference Hgb O2 Saturation Vent Mode Mechanical Rate FiO2 Tidal Volume PEEP Sodium Potassium Chloride Carbon Dioxide Anion Gap BUN Creatinine Est GFR ( Amer) Est GFR (Non-Af Amer) POC Glucose (mg/dL) 110 118 H Random Glucose Calcium Total Bilirubin AST ALT Alkaline Phosphatase Total Protein Albumin Globulin Albumin/Globulin Ratio Thyroxine (T4) TSH 3rd Generation Levetiracetam Blood Type Antibody Screen Crossmatch BBK History Checked 07/16/17 07/16/17 07/16/17 04:08 04:20 04:20 WBC 5.7 RBC 3.27 L Hgb 9.8 L D Hct 30.1 L MCV 92.0 MCH 30.1 MCHC 32.7 L RDW 16.3 H Plt Count 268 pCO2 pO2 HCO3 ABG pH ABG Total CO2 ABG O2 Saturation ABG O2 Content ABG Base Excess ABG Hemoglobin ABG Carboxyhemoglobin POC ABG HHb (Measured) ABG Methemoglobin ABG O2 Capacity Andry Test A-a O2 Difference Hgb O2 Saturation Vent Mode Mechanical Rate FiO2 Tidal Volume PEEP Sodium 150 H Potassium 3.5 L Chloride 116 H Carbon Dioxide 26 Anion Gap 12 BUN 38 H Creatinine 1.9 H Est GFR ( Amer) 43 Est GFR (Non-Af Amer) 36 POC Glucose (mg/dL) 104 Random Glucose 102 Calcium 8.9 Total Bilirubin 0.4 AST 22 ALT 39 Alkaline Phosphatase 155 H Total Protein 5.0 L Albumin 2.3 L Globulin 2.7 Albumin/Globulin Ratio 0.8 L Thyroxine (T4) 7.96 TSH 3rd Generation 2.62 Levetiracetam Blood Type Antibody Screen Crossmatch BBK History Checked 07/16/17 07/16/17 04:50 11:10 WBC RBC Hgb Hct MCV MCH MCHC RDW Plt Count pCO2 37 pO2 113 H HCO3 25.2 ABG pH 7.43 ABG Total CO2 25.7 ABG O2 Saturation 99.4 H ABG O2 Content 14.2 L ABG Base Excess 0.4 ABG Hemoglobin 10.3 L ABG Carboxyhemoglobin 1.3 POC ABG HHb (Measured) 0.6 ABG Methemoglobin 1.4 ABG O2 Capacity 14.3 L Andry Test Yes A-a O2 Difference 197.0 Hgb O2 Saturation 96.6 Vent Mode A/c Mechanical Rate 10 FiO2 50.0 Tidal Volume 450 PEEP 5 Sodium Potassium Chloride Carbon Dioxide Anion Gap BUN Creatinine Est GFR ( Amer) Est GFR (Non-Af Amer) POC Glucose (mg/dL) 83 Random Glucose Calcium Total Bilirubin AST ALT Alkaline Phosphatase Total Protein Albumin Globulin Albumin/Globulin Ratio Thyroxine (T4) TSH 3rd Generation Levetiracetam Blood Type Antibody Screen Crossmatch BBK History Checked Fingerstick Blood Sugar Results: 83 Critical Care Progress Note - Nutrition Nutrition: Nutrition Category Date Time Status NPO Diet [DIET] Diets 07/15/17 Dinner Active <Ervin Mata - Last Filed: 07/16/17 18:00> CCU Subjective - Physician Review Subjective (Free Text): Attestation: Patient seen and examined at the bedside with Resident Dr. Tita Magana; and I agree with her outline of plans and management documented above as discussed on AM rounds reflecting my review of all applicable clinical data, and participation in the care of the patient throughout the day in ICU; July 16, 2017.
[2017-07-16] MEDS: Albumin Human 25% (12.5 gm/50 ml) IV SCH ×2 (14:24→20:10)
--- NOTE | 2017-07-16 14:39 | RAD ---
PROCEDURE: CHEST RADIOGRAPH, 1 VIEW HISTORY: Post op chest tube placemnet X 2 removal X 1 COMPARISON: 07/15/2017 FINDINGS: LUNGS: Minimal subsegmental atelectasis at the right lung base. PLEURA: There are now 2 right chest tubes identified. These extend to the lung apex and represent a changed in positioning of the prior chest tube or replacement with a new chest tube. There is a single left chest tube, grossly unchanged. There is a questionable small left pneumothorax laterally at the lung base. Subsequent chest radiography of 07/16/2017 demonstrates no pneumothorax. Likely skin fold. CARDIOVASCULAR: Endotracheal tube unchanged. Left subclavian central venous catheter unchanged. OSSEOUS STRUCTURES: No significant abnormalities. VISUALIZED UPPER ABDOMEN: Normal. OTHER FINDINGS: None. IMPRESSION: Two right apical chest tubes. No right pneumothorax. Probable skin fold at lateral left base simulating a pneumothorax. Left chest tube unchanged. Small left pleural effusion. Endotracheal tube. Left subclavian central venous catheter.
--- NOTE | 2017-07-16 23:06 | CP.PCM.PN ---
Subjective - Date & Time of Evaluation Date of Evaluation: 07/16/17 Time of Evaluation: 12:30 - Subjective Subjective: Patient s/p mini-thoracotomy yesterday after being found to have large R pneumothorax, had removal of R chest tube and replacement with 2 R sided chest tubes, one anteriorly and one posteriorly; no record of any intra-op/angeline-op hypotension; remains intubated, NPO; Objective - Vital Signs/Intake and Output Vital Signs (last 24 hours): Temp Pulse Resp BP Pulse Ox 100.1 F H 78 17 173/65 H 98 07/16/17 16:00 07/16/17 21:54 07/16/17 18:00 07/16/17 21:54 07/16/17 18:00 Intake and Output: 07/16/17 07/17/17 18:59 06:59 Intake Total 1100 Output Total 170 Balance 930 - Medications Medications: Current Medications Albumin Human (Albumin Human 25% (12.5 Gm/50 Ml)) 12.5 gm IV ONCE ONE Stop: 07/17/17 00:00 Albuterol/Ipratropium (Duoneb 3 Mg/0.5 Mg (3 Ml) Ud) 3 ml INH RQ6 PRN PRN Reason: Shortness of Breath Amlodipine Besylate (Norvasc) 10 mg PO DAILY [facility] Last Admin: 07/16/17 09:15 Dose: Not Given Aspirin (Ecotrin) 81 mg PO DAILY [facility] Last Admin: 07/16/17 09:15 Dose: Not Given Bacitracin (Bacitracin Oint) 1 applic TOP DAILY [facility] Last Admin: 07/16/17 08:04 Dose: 1 applic Calcium Acetate (Phoslo) 2,001 mg PO 0830,1200,1830 [facility] Last Admin: 07/14/17 12:26 Dose: 2,001 mg Dextrose (Dextrose 50% Inj) 0 ml IV STAT PRN; Protocol PRN Reason: Hypoglycemia Protocol Dextrose (Glutose 15) 0 gm PO ONCE PRN; Protocol PRN Reason: Hypoglycemia Protocol Dextrose (Dextrose 50% Inj) 50 ml IVP Q1H PRN PRN Reason: Hypoglycemia Epoetin Roel (Procrit) 14,000 unit SC MWF [facility] Last Admin: 07/16/17 09:50 Dose: 14,000 unit Fluconazole (Diflucan) 200 mg PO DAILY [facility] PRN Reason: Protocol Last Admin: 07/16/17 09:15 Dose: Not Given Glucagon (Glucagen Diagnostic Kit) 0 mg IM STAT PRN; Protocol PRN Reason: Hypoglycemia Protocol Hydralazine HCl (Apresoline) 50 mg PO Q8 [facility] Last Admin: 07/16/17 16:33 Dose: Not Given Hydralazine HCl (Apresoline) 10 mg IV Q6 PRN PRN Reason: SBP > 170 Last Admin: 07/16/17 18:13 Dose: 10 mg Levetiracetam 500 mg/ Sodium (Chloride) 105 mls @ 210 mls/hr IVPB Q12 [facility] Last Admin: 07/16/17 20:10 Dose: 210 mls/hr Cefepime HCl 1 gm/ Sodium (Chloride) 50 mls @ 50 mls/hr IVPB DAILY [facility]OMAS PRN Reason: Protocol Last Admin: 07/16/17 11:15 Dose: 50 mls/hr Dextrose/Sodium Chloride (Dextrose 5%/0.45% Ns 1000 Ml) 1,000 mls @ 125 mls/hr IV .Q8H [facility] Stop: 07/17/17 12:45 Last Admin: 07/16/17 20:11 Dose: 125 mls/hr Insulin Human Lispro (Humalog) 0 units SC Q6H [facility] PRN Reason: Protocol Last Admin: 07/16/17 21:53 Dose: Not Given Levothyroxine Sodium (Synthroid) 50 mcg PO DAILY@0630 [facility] Last Admin: 07/16/17 07:27 Dose: Not Given Lisinopril (Zestril) 40 mg PO DAILY [facility] Last Admin: 07/15/17 08:55 Dose: 40 mg Metoprolol Tartrate (Lopressor) 5 mg IVP Q6 [facility] Last Admin: 07/16/17 21:54 Dose: 5 mg Pantoprazole Sodium (Protonix Inj) 40 mg IVP Q12 [facility] Last Admin: 07/16/17 20:19 Dose: 40 mg Sodium Bicarbonate (Sodium Bicarbonate Tab) 1,300 mg PO Q8 [facility] Last Admin: 07/02/17 16:23 Dose: 1,300 mg Thiamine HCl (Vitamin B1 Tab) 100 mg PO DAILY [facility] Last Admin: 07/16/17 09:15 Dose: Not Given - Labs Labs: 07/16/17 04:20 07/16/17 04:20 PT 13.4 Seconds (9.8-13.1) H 07/08/17 12:50 INR 1.2 (0.9-1.2) 07/08/17 12:50 APTT 30.8 Seconds (25.6-37.1) 07/08/17 12:50 - Constitutional Appears: Non-toxic, No Acute Distress - Eye Exam Eye Exam: absent: Scleral icterus - ENT Exam ENT Exam: Mucous Membranes Moist - Respiratory Exam Respiratory Exam: absent: Respiratory Distress Additional comments: good air movement; - Cardiovascular Exam Cardiovascular Exam: RRR, +S1, +S2 - GI/Abdominal Exam GI & Abdominal Exam: Soft. absent: Distended - Extremities Exam Additional comments: edema pronounced in dependent areas; - Neurological Exam Additional comments: arousable to tactile stimuli; - Skin Skin Exam: Warm. absent: Cyanosis Assessment and Plan (1) Acute renal failure Assessment & Plan: CHINTAN on CKD; ATN resolving; however, oliguric this morning; no hypotension noted lately but likely intravascularly volume depleted despite hypertension (third spacing in the setting of hypoalbuminemia; was off any standing IVF lately, and diuresed intermittently); -D5NS at 100 cc/hr started by CCM team; will switch to D5-1/2NS at 125 cc/hr to correct hypernatremia and add IV albumin 12.5 g x 2 for volume expansion; Status: Acute (2) Nephrotic syndrome Assessment & Plan: On lisinopril 40 mg daily, will hold subsequent doses until oliguria improves; Status: Chronic (3) Pleural effusion Assessment & Plan: Now s/p new R sided chest tubes and pleural biopsy, awaiting results of biopsy and pleural fluid cytology; Status: Chronic (4) Hypertensive CKD (chronic kidney disease) Assessment & Plan: Currently with no OG access; continue metoprolol IV and prn hydralazine; Status: Acute (5) Chronic kidney disease, stage 3 (moderate) Status: Chronic (6) Hypothermia Status: Acute (7) Altered mental status Status: Acute (8) SIRS (systemic inflammatory response syndrome) Status: Acute (9) Anemia Assessment & Plan: s/p 1 more unit prbc yesterday; continue EPO three times per week; Status: Chronic (10) Monoclonal gammopathy Status: Chronic
[2017-07-16] MEDS ORDERED: Albumin Human 25% (12.5 gm/50 ml) IV ONE (23:59)
--- NOTE | 2017-07-17 02:40 | PN ---
DATE: LOCATION: Room 433. SUBJECTIVE: This is a 66-year-old male with recent admission for acute respiratory failure and currently being followed closely for metabolic management. He has been re-intubated and has also an ongoing right chest tube insertion and drainage as noted. His glycemic profile is fluctuating but improved and the latest glucose levels have ranged from 83-104 and 127 mg/dL. His latest chemistry showed a BUN of 38, sodium 150, potassium 3.5, chloride 116, CO2 of 26, glucose 102 and creatinine 1.9. He has been taken off the Glucotrol or glipizide therapy because of the reintubation as noted. He remains clinically euthyroid and biochemically the repeat thyroid studies have improved with a total T4 of 7.96 and a TSH of 2.62. So at this time, we will continue the levothyroxine given as 50 mcg once daily as ordered. We will titrate incremental as indicated to optimize metabolic control. We will follow. Bettina Mann MD
[2017-07-17] MEDS ORDERED: EnalaprilAT 1.25 mg/ml Inj IV SCH (04:00)
[2017-07-17] MEDS: Insulin Lispro (humaLOG) 100 Units/ml Inj SC SCH ×5 (04:18→22:45)
[2017-07-17] MEDS: Metoprolol 1 mg/ml Inj IVP SCH ×4 (04:26→22:46)
[2017-07-17] MEDS: Dextrose 5%/0.45% NS 1,000 ML IV SCH ×2 (04:30→19:00)
[2017-07-17 05:18] LABS: BASO # 0.1 K/uL (0.0-0.2); BASO % 1.4 % (0.0-2.0); EOS # 0.1 K/uL (0.0-0.7); EOS % 1.5 % (0.0-4.0); HEMOGLOBIN 9.1 g/dL (12.0-18.0); LYMPH % 15.8 % (20.0-40.0); MEAN CELL VOLUME 93.4 fl (80.0-94.0); MEAN CORPUSCULAR HEMOGLOBIN 30.6 pg (27.0-31.0); MEAN CORPUSCULAR HGB CONC 32.8 g/dL (33.0-37.0); MEAN PLATELET VOLUME 10.1 fl (7.2-11.7); MONO # 0.6 K/uL (0.0-0.8); MONO % 9.3 % (0.0-10.0); NEUT # 4.8 K/uL (1.8-7.0); NRBC % 0.3 % (0.0-0.0); RBC 2.96 Mil/uL (4.40-5.90); RED CELL DISTRIBUTION WIDTH 17.5 % (11.5-14.5); WHITE BLOOD COUNT 6.6 K/uL (4.8-10.8)
[2017-07-17 05:46] LABS: ALB/GLOB RATIO 0.9 (1.0-2.1); ALBUMIN 2.5 g/dL (3.5-5.0); CALCIUM 8.2 mg/dL (8.4-10.2)
[2017-07-17 05:50] LABS: ABG ALLEN TEST YES; ARTERIAL BLOOD GAS HCO3 23.7 mmol/L (21-28); ARTERIAL BLOOD GAS HEMOGLOBIN 9.8 g/dL (11.7-17.4); ARTERIAL BLOOD GAS O2 CAPACITY 13.6 mL/dL (16-24); ARTERIAL BLOOD GAS O2 CONTENT 13.6 ML/dL (15-23); ARTERIAL BLOOD GAS O2 SAT 99.7 % (95-98); ARTERIAL BLOOD GAS PCO2 37 mm/Hg (35-45); ARTERIAL BLOOD GAS PO2 118 mm/Hg (80-100)
[2017-07-17] MEDS: Levothyroxine 50 MCG TAB PO SCH (07:04)
--- NOTE | 2017-07-17 08:33 | CP.PCM.PN ---
Subjective - Date & Time of Evaluation Date of Evaluation: 07/17/17 Time of Evaluation: 08:27 - Subjective Subjective: CT Surgery Progress Note for Dr. Gannon This 66M was seen and examined this AM at bedside. No acute events reported overnight, patient with minimal vent requirments this AM. AM AP CXR shows no pneumo and R chest tubes in apex. Anterior R CT with 50cc serosang, R Posterior 58cc serosang, L CT no output. Objective - Vital Signs/Intake and Output Vital Signs (last 24 hours): Temp Pulse Resp BP Pulse Ox 98.1 F 66 16 167/67 H 100 07/17/17 04:00 07/17/17 07:59 07/17/17 06:00 07/17/17 07:59 07/17/17 06:00 Intake and Output: 07/17/17 07/17/17 06:59 18:59 Intake Total 1700 Output Total 288 Balance 1412 - Medications Medications: Current Medications Albuterol/Ipratropium (Duoneb 3 Mg/0.5 Mg (3 Ml) Ud) 3 ml INH RQ6 PRN PRN Reason: Shortness of Breath Aspirin (Ecotrin) 81 mg PO DAILY [facility] Last Admin: 07/16/17 09:15 Dose: Not Given Bacitracin (Bacitracin Oint) 1 applic TOP DAILY [facility] Last Admin: 07/16/17 08:04 Dose: 1 applic Calcium Acetate (Phoslo) 2,001 mg PO 0830,1200,1830 [facility] Last Admin: 07/14/17 12:26 Dose: 2,001 mg Dextrose (Dextrose 50% Inj) 0 ml IV STAT PRN; Protocol PRN Reason: Hypoglycemia Protocol Dextrose (Glutose 15) 0 gm PO ONCE PRN; Protocol PRN Reason: Hypoglycemia Protocol Dextrose (Dextrose 50% Inj) 50 ml IVP Q1H PRN PRN Reason: Hypoglycemia Enalaprilat (Vasotec Iv) 1.25 mg IV Q6 [facility] Last Admin: 07/17/17 04:28 Dose: 1.25 mg Epoetin Roel (Procrit) 14,000 unit SC MWF [facility] Last Admin: 07/16/17 09:50 Dose: 14,000 unit Fluconazole (Diflucan) 200 mg PO DAILY [facility] PRN Reason: Protocol Last Admin: 07/16/17 09:15 Dose: Not Given Glucagon (Glucagen Diagnostic Kit) 0 mg IM STAT PRN; Protocol PRN Reason: Hypoglycemia Protocol Hydralazine HCl (Apresoline) 50 mg PO Q8 [facility] Last Admin: 07/17/17 01:00 Dose: Not Given Hydralazine HCl (Apresoline) 10 mg IV Q6 PRN PRN Reason: SBP > 170 Last Admin: 07/17/17 07:59 Dose: 10 mg Levetiracetam 500 mg/ Sodium (Chloride) 105 mls @ 210 mls/hr IVPB Q12 [facility] Last Admin: 07/16/17 20:10 Dose: 210 mls/hr Cefepime HCl 1 gm/ Sodium (Chloride) 50 mls @ 50 mls/hr IVPB DAILY [facility] PRN Reason: Protocol Last Admin: 07/16/17 11:15 Dose: 50 mls/hr Dextrose/Sodium Chloride (Dextrose 5%/0.45% Ns 1000 Ml) 1,000 mls @ 125 mls/hr IV .Q8H [facility] Stop: 07/17/17 12:45 Last Admin: 07/17/17 04:30 Dose: 125 mls/hr Potassium Chloride 10 meq/ (Sodium Chloride) 105 mls @ 105 mls/hr IV ONCE ONE Stop: 07/17/17 08:59 Insulin Human Lispro (Humalog) 0 units SC Q6H [facility] PRN Reason: Protocol Last Admin: 07/17/17 04:42 Dose: Not Given Levothyroxine Sodium (Synthroid) 50 mcg PO DAILY@0630 [facility] Last Admin: 07/17/17 07:04 Dose: Not Given Lisinopril (Zestril) 40 mg PO DAILY [facility] Last Admin: 07/15/17 08:55 Dose: 40 mg Metoprolol Tartrate (Lopressor) 5 mg IVP Q6 [facility] Last Admin: 07/17/17 04:26 Dose: 5 mg Pantoprazole Sodium (Protonix Inj) 40 mg IVP Q12 [facility] Last Admin: 07/16/17 20:19 Dose: 40 mg Sodium Bicarbonate (Sodium Bicarbonate Tab) 1,300 mg PO Q8 [facility] Last Admin: 07/02/17 16:23 Dose: 1,300 mg Thiamine HCl (Vitamin B1 Tab) 100 mg PO DAILY [facility] Last Admin: 07/16/17 09:15 Dose: Not Given - Labs Labs: 07/17/17 05:06 07/17/17 05:06 PT 13.4 Seconds (9.8-13.1) H 07/08/17 12:50 INR 1.2 (0.9-1.2) 07/08/17 12:50 APTT 30.8 Seconds (25.6-37.1) 07/08/17 12:50 - Constitutional Appears: Non-toxic, No Acute Distress - Head Exam Head Exam: ATRAUMATIC, NORMOCEPHALIC - Eye Exam Eye Exam: EOMI, Normal appearance - ENT Exam ENT Exam: Mucous Membranes Moist - Respiratory Exam Respiratory Exam: NORMAL BREATHING PATTERN Additional comments: 2 R chest tubes to suction , 1 L chest tube to water seal. Outputs in subjective. - Cardiovascular Exam Cardiovascular Exam: +S1, +S2 - GI/Abdominal Exam GI & Abdominal Exam: Soft Assessment and Plan - Assessment and Plan (Free Text) Assessment: 66M POD#2 s/p mini R mini thoracotamy and anterior and posterior chest tube placement, and removal of traumatic chest tube. Patient doing well R CTs to suction L CT to water seal Monitor outputs Followup daily CXRs Extubate when ready per ICU team. D/W Dr. Jagdeep West PGY2
[2017-07-17] MEDS: Cefepime 1 GM in Sodium Chloride 0.9% 50 ML IVPB SCH (08:40)
[2017-07-17] MEDS: levETIRAcetam 500 MG in Sodium Chloride 0.9% 100 ML IVPB SCH ×2 (08:40→22:45)
[2017-07-17] MEDS: Bacitracin OINT 15GM TOP SCH (08:41)
--- NOTE | 2017-07-17 09:42 | CP.PCM.PN ---
Subjective - Date & Time of Evaluation Date of Evaluation: 07/17/17 Time of Evaluation: 09:38 - Subjective Subjective: Ms. Durand was seen and examined at the bedside in ICU. He is alert, able to respond appropriately with commands. He remains on mechanical ventilation with GCS-12T. He uses non verbal cues such as nodding or shaking his head. He also has bilateral wrist restraint for patient safety.He also has bilateral chest tube draining to a minimal scanty serosanguinous fluid. He has bilateral lower SCD's. There was no untoward events overnight. Objective - Vital Signs/Intake and Output Vital Signs (last 24 hours): Temp Pulse Resp BP Pulse Ox 98.2 F 70 19 160/62 H 100 07/17/17 08:00 07/17/17 08:43 07/17/17 08:00 07/17/17 08:43 07/17/17 08:00 Intake and Output: 07/17/17 07/17/17 06:59 18:59 Intake Total 1700 Output Total 288 Balance 1412 - Medications Medications: Current Medications Albuterol/Ipratropium (Duoneb 3 Mg/0.5 Mg (3 Ml) Ud) 3 ml INH RQ6 PRN PRN Reason: Shortness of Breath Aspirin (Ecotrin) 81 mg PO DAILY [facility] Last Admin: 07/17/17 08:44 Dose: Not Given Bacitracin (Bacitracin Oint) 1 applic TOP DAILY [facility] Last Admin: 07/17/17 08:41 Dose: 1 applic Calcium Acetate (Phoslo) 2,001 mg PO 0830,1200,1830 [facility] Last Admin: 07/14/17 12:26 Dose: 2,001 mg Dextrose (Dextrose 50% Inj) 0 ml IV STAT PRN; Protocol PRN Reason: Hypoglycemia Protocol Dextrose (Glutose 15) 0 gm PO ONCE PRN; Protocol PRN Reason: Hypoglycemia Protocol Dextrose (Dextrose 50% Inj) 50 ml IVP Q1H PRN PRN Reason: Hypoglycemia Enalaprilat (Vasotec Iv) 1.25 mg IV Q6 [facility] Last Admin: 07/17/17 04:28 Dose: 1.25 mg Epoetin Roel (Procrit) 14,000 unit SC MWF [facility] Last Admin: 07/16/17 09:50 Dose: 14,000 unit Fluconazole (Diflucan) 200 mg PO DAILY [facility] PRN Reason: Protocol Last Admin: 07/17/17 08:44 Dose: Not Given Glucagon (Glucagen Diagnostic Kit) 0 mg IM STAT PRN; Protocol PRN Reason: Hypoglycemia Protocol Hydralazine HCl (Apresoline) 50 mg PO Q8 [facility] Last Admin: 07/17/17 08:43 Dose: Not Given Hydralazine HCl (Apresoline) 10 mg IV Q6 PRN PRN Reason: SBP > 170 Last Admin: 07/17/17 07:59 Dose: 10 mg Levetiracetam 500 mg/ Sodium (Chloride) 105 mls @ 210 mls/hr IVPB Q12 [facility] Last Admin: 07/17/17 08:40 Dose: 210 mls/hr Cefepime HCl 1 gm/ Sodium (Chloride) 50 mls @ 50 mls/hr IVPB DAILY [facility] PRN Reason: Protocol Last Admin: 07/17/17 08:40 Dose: 50 mls/hr Dextrose/Sodium Chloride (Dextrose 5%/0.45% Ns 1000 Ml) 1,000 mls @ 125 mls/hr IV .Q8H [facility] Stop: 07/17/17 12:45 Last Admin: 07/17/17 04:30 Dose: 125 mls/hr Insulin Human Lispro (Humalog) 0 units SC Q6H [facility] PRN Reason: Protocol Last Admin: 07/17/17 04:42 Dose: Not Given Levothyroxine Sodium (Synthroid) 50 mcg PO DAILY@0630 [facility] Last Admin: 07/17/17 07:04 Dose: Not Given Lisinopril (Zestril) 40 mg PO DAILY [facility] Last Admin: 07/15/17 08:55 Dose: 40 mg Metoprolol Tartrate (Lopressor) 5 mg IVP Q6 [facility] Last Admin: 07/17/17 04:26 Dose: 5 mg Pantoprazole Sodium (Protonix Inj) 40 mg IVP Q12 [facility] Last Admin: 07/17/17 08:40 Dose: 40 mg Sodium Bicarbonate (Sodium Bicarbonate Tab) 1,300 mg PO Q8 [facility] Last Admin: 07/02/17 16:23 Dose: 1,300 mg Thiamine HCl (Vitamin B1 Tab) 100 mg PO DAILY [facility] Last Admin: 07/16/17 09:15 Dose: Not Given - Labs Labs: 07/17/17 05:06 07/17/17 05:06 PT 13.4 Seconds (9.8-13.1) H 07/08/17 12:50 INR 1.2 (0.9-1.2) 07/08/17 12:50 APTT 30.8 Seconds (25.6-37.1) 07/08/17 12:50 - Constitutional Appears: No Acute Distress - Head Exam Head Exam: NORMAL INSPECTION - Neurological Exam Neurological Exam: Alert, Awake Neuro motor strength exam: Left Upper Extremity: 3, Right Upper Extremity: 3, Left Lower Extremity: 3, Right Lower Extremity: 3 Additional comments: Neurological unchanged from previous examination. Assessment and Plan (1) Altered mental status Assessment & Plan: Case discussed with Dr. Das, continue all current medical regimen. There is no new recommendations from neurology. Status: Acute
--- NOTE | 2017-07-17 10:13 | CP.PCM.PN ---
Subjective - Date & Time of Evaluation Date of Evaluation: 07/17/17 Time of Evaluation: 07:15 - Subjective Subjective: Patient seen and examined bedside. Patient intubated day #2, awake, more alert than yesterday, obey commands, moving hands and feet. Patient is nodding head and denies pain. Left side chest tube noticed 35 ml serosanguineous liquid. right side chest tube anterior 80 ml, right side posterior 210 ml serosanguineous liquid. folley urine more clear today 150 ml Objective - Vital Signs/Intake and Output Vital Signs (last 24 hours): Temp Pulse Resp BP Pulse Ox 98.2 F 70 19 160/62 H 100 07/17/17 08:00 07/17/17 08:43 07/17/17 08:00 07/17/17 08:43 07/17/17 08:00 Intake and Output: 07/17/17 07/17/17 06:59 18:59 Intake Total 1700 Output Total 288 Balance 1412 - Medications Medications: Current Medications Albuterol/Ipratropium (Duoneb 3 Mg/0.5 Mg (3 Ml) Ud) 3 ml INH RQ6 PRN PRN Reason: Shortness of Breath Aspirin (Ecotrin) 81 mg PO DAILY [facility] Last Admin: 07/17/17 08:44 Dose: Not Given Bacitracin (Bacitracin Oint) 1 applic TOP DAILY [facility] Last Admin: 07/17/17 08:41 Dose: 1 applic Calcium Acetate (Phoslo) 2,001 mg PO 0830,1200,1830 [facility] Last Admin: 07/14/17 12:26 Dose: 2,001 mg Dextrose (Dextrose 50% Inj) 0 ml IV STAT PRN; Protocol PRN Reason: Hypoglycemia Protocol Dextrose (Glutose 15) 0 gm PO ONCE PRN; Protocol PRN Reason: Hypoglycemia Protocol Dextrose (Dextrose 50% Inj) 50 ml IVP Q1H PRN PRN Reason: Hypoglycemia Enalaprilat (Vasotec Iv) 1.25 mg IV Q6 [facility] Last Admin: 07/17/17 04:28 Dose: 1.25 mg Epoetin Role (Procrit) 14,000 unit SC MWF [facility] Last Admin: 07/16/17 09:50 Dose: 14,000 unit Fluconazole (Diflucan) 200 mg PO DAILY [facility] PRN Reason: Protocol Last Admin: 07/17/17 08:44 Dose: Not Given Glucagon (Glucagen Diagnostic Kit) 0 mg IM STAT PRN; Protocol PRN Reason: Hypoglycemia Protocol Hydralazine HCl (Apresoline) 50 mg PO Q8 [facility] Last Admin: 07/17/17 08:43 Dose: Not Given Hydralazine HCl (Apresoline) 10 mg IV Q6 PRN PRN Reason: SBP > 170 Last Admin: 07/17/17 07:59 Dose: 10 mg Levetiracetam 500 mg/ Sodium (Chloride) 105 mls @ 210 mls/hr IVPB Q12 [facility] Last Admin: 07/17/17 08:40 Dose: 210 mls/hr Cefepime HCl 1 gm/ Sodium (Chloride) 50 mls @ 50 mls/hr IVPB DAILY [facility] PRN Reason: Protocol Last Admin: 07/17/17 08:40 Dose: 50 mls/hr Dextrose/Sodium Chloride (Dextrose 5%/0.45% Ns 1000 Ml) 1,000 mls @ 125 mls/hr IV .Q8H [facility] Stop: 07/17/17 12:45 Last Admin: 07/17/17 04:30 Dose: 125 mls/hr Insulin Human Lispro (Humalog) 0 units SC Q6H [facility] PRN Reason: Protocol Last Admin: 07/17/17 04:42 Dose: Not Given Levothyroxine Sodium (Synthroid) 50 mcg PO DAILY@0630 [facility] Last Admin: 07/17/17 07:04 Dose: Not Given Lisinopril (Zestril) 40 mg PO DAILY [facility] Last Admin: 07/15/17 08:55 Dose: 40 mg Metoprolol Tartrate (Lopressor) 5 mg IVP Q6 [facility] Last Admin: 07/17/17 04:26 Dose: 5 mg Pantoprazole Sodium (Protonix Inj) 40 mg IVP Q12 [facility] Last Admin: 07/17/17 08:40 Dose: 40 mg Sodium Bicarbonate (Sodium Bicarbonate Tab) 1,300 mg PO Q8 [facility] Last Admin: 07/02/17 16:23 Dose: 1,300 mg Thiamine HCl (Vitamin B1 Tab) 100 mg PO DAILY [facility] Last Admin: 07/16/17 09:15 Dose: Not Given - Labs Labs: 07/17/17 05:06 07/17/17 05:06 PT 13.4 Seconds (9.8-13.1) H 07/08/17 12:50 INR 1.2 (0.9-1.2) 07/08/17 12:50 APTT 30.8 Seconds (25.6-37.1) 07/08/17 12:50 - Constitutional Appears: Non-toxic, Cachectic, Chronically Ill - Head Exam Head Exam: ATRAUMATIC, NORMOCEPHALIC - Eye Exam Eye Exam: Normal appearance - Neck Exam Neck Exam: Normal Inspection - Respiratory Exam Respiratory Exam: Decreased Breath Sounds, Rhonchi. absent: Rales, Wheezes, Stridor Additional comments: b/l bibasal. Right side anterior and posterior chest tube. left side chest tube. left side triple lumen subclavian catheter. - Cardiovascular Exam Cardiovascular Exam: REGULAR RHYTHM, +S1, +S2 - GI/Abdominal Exam GI & Abdominal Exam: Soft, Normal Bowel Sounds. absent: Tenderness - Extremities Exam Extremities Exam: absent: Pedal Edema Additional comments: B/L hands and forearm edema improving 1+. left hand abrasion with scab formation - Neurological Exam Neurological Exam: Alert, Awake - Skin Skin Exam: absent: Mottled, Petechiae Assessment and Plan - Assessment and Plan (Free Text) Plan: 66 yo M w/ PMHx HTN, DM, DM nephropathy, monoclonal gammopathy, recurrent L pleural effusion admitted for sepsis, Hypothermia, CHINTAN on CKD currently intubated and Full Code 1) Acute Respiratory Failure -Intubated day # 2 s/p OR relocation right chest tube for Pneumotorax -Trial CPAP to try extubate today -sputum cx ross Alb fungus cx. , diflucan PO, mycamine day 14 -F/u CXR daily 2) Pneumotorax right side -resolved -s/p right side chest tube placement posterior and anterior -f/u CXR daily 3) Recurrent Left Pleural effusion, Transudate -Pulmonology consult appreciated: no benefit for bronchoscopy or lung biopsy -Cardiothoracic surgery consult appreciated, considering talc pleurodesis - s/p Chest tube placement POD#9 left side -s/p chest tube placement POD#6 right side.removal and Relocation new chest tube yesterday -s/p right side chest tube anterior POD#2 and right side chest tube post Posterior POD#2 -CT chest s/p relocation chest tube right side showed left pleural effusion partially loculated -quantiferon gold:indeterminate, AFB x4 neg -f/u pleural cx 4) HAP -improved -c/w cefepime day # 22 5) DM nephropathy -Kidney biopsy 06/05/17: Diabetic nephropathy, nodular glomerulosclerosis, associated with aprox 40 % globally sclerosed glomeruli( calss III), 10-15 % segmentally sclerosed glomeruli, docal moderate interstitial fibrosis and mod vascular sclerosis, including marked hyaline arteriolosclerosis.NO EVIDENCE OF MONOCLONAL LIGHT OR HEAVY CHAIN-RELATED RENAL DISEASE. -Nephro consult appreciated: on D5-1/2 NS at 125ml/h, albumin 12.5 g x 2 Lisinopril hold. Enalaprilat IV 1.25 Q6h deb, Hydralazine 50 Q8h -Renal duplex: no renal vein thrombosis 6) CHINTAN on CKD stage 4 w/ new onset of ATN -BUN/Cr improving - Nephorologist consult appreciated -no steroids, no Hd -lisinopril hold 7) Hypothyroidism, subclinical -Econdrinologist consult appreciated -c/w levothryroxin 50 mcg daily 8) Hyperprolactinemia -Prolactin trending down -Endocrionologist consult suggested -MRI brain:no inracraneal hemorrhage, chronic lacunar infarct b/l cerebral, changes in dali haydee represent chronic ischemia or sequela of osmotic myelonilolysis not excluded.chronic b/l basal nuclei lacunar infarcts, mastoid ppasification secondary to intubation 9) Pressure Ulcer and TDI -resolved 10) pEF CHF -Echo 05/31/17 normal EF 60-65% -c/w Metoprolol IV, hydralazine 50 mg Q8h PRN 11) DM 2 -SSI 12) HTN - Hydralazine 50 Q8. To keep systolic BP 150 - Metropolol Tartrate 5 mg IV deb q 6h -lisinopril 30mg daily 13) Anemia -secondary to CKD -s/p transfucion 4u pRBC -Hgb:9.1 -C/W procrit 14) DVT prophylaxis -Heparin hold (Cr Cl 32 ml) -Possible relocation left side chest tube today . 15) GI prophylaxis -Pantoprazol 40 mg IV
--- NOTE | 2017-07-17 10:37 | RAD ---
PROCEDURE: CHEST RADIOGRAPH, 1 VIEW HISTORY: intubated, chest tube COMPARISON: 07/16/2017 FINDINGS: LUNGS: Clear. PLEURA: Bilateral small pleural effusion unchanged from prior. Two right apical chest tubes are unchanged from prior. No pneumothorax. CARDIOVASCULAR: Normal heart size. ET tube unchanged in position. OSSEOUS STRUCTURES: No significant abnormalities. VISUALIZED UPPER ABDOMEN: Normal. OTHER FINDINGS: None. IMPRESSION: No interval change from 07/16/2017.
[2017-07-17] MEDS ORDERED: HYDROmorphone 1 mg/ml ISec IVP PRN (12:35)
[2017-07-17] MEDS ORDERED: Dextrose 5%/0.45% NS 1,000 ML IV SCH (12:36)
[2017-07-17] MEDS ORDERED: Iodoform 1/4inx15ft BOT EXT ONE (12:38)
--- NOTE | 2017-07-17 12:46 | CP.PCM.PN ---
Subjective - Date & Time of Evaluation Date of Evaluation: 07/17/17 Time of Evaluation: 12:20 - Subjective Subjective: 66 yo M w/ pmh of htn, dm, CKD IIIB secondary to diabetic nephropathy w/ nephrotic syndrome, recurrent pleural effusion, admitted with pleural effusion, CHINTAN; Patient extubated this morning; currently on venti-mask; reports pain at site of R chest tube placement; some shortness of breath; currently NPO awaiting swallow eval; Objective - Vital Signs/Intake and Output Vital Signs (last 24 hours): Temp Pulse Resp BP Pulse Ox 97.9 F 80 92 H 158/63 H 21 L 07/17/17 12:00 07/17/17 12:00 07/17/17 12:00 07/17/17 12:00 07/17/17 12:00 Intake and Output: 07/17/17 07/17/17 06:59 18:59 Intake Total 1700 Output Total 288 Balance 1412 - Medications Medications: Current Medications Albuterol/Ipratropium (Duoneb 3 Mg/0.5 Mg (3 Ml) Ud) 3 ml INH RQ6 PRN PRN Reason: Shortness of Breath Aspirin (Ecotrin) 81 mg PO DAILY [facility] Last Admin: 07/17/17 08:44 Dose: Not Given Bacitracin (Bacitracin Oint) 1 applic TOP DAILY [facility] Last Admin: 07/17/17 08:41 Dose: 1 applic Calcium Acetate (Phoslo) 2,001 mg PO 0830,1200,1830 [facility] Last Admin: 07/14/17 12:26 Dose: 2,001 mg Dextrose (Dextrose 50% Inj) 0 ml IV STAT PRN; Protocol PRN Reason: Hypoglycemia Protocol Dextrose (Glutose 15) 0 gm PO ONCE PRN; Protocol PRN Reason: Hypoglycemia Protocol Dextrose (Dextrose 50% Inj) 50 ml IVP Q1H PRN PRN Reason: Hypoglycemia Enalaprilat (Vasotec Iv) 1.25 mg IV Q6 [facility] Last Admin: 07/17/17 04:28 Dose: 1.25 mg Epoetin Roel (Procrit) 14,000 unit SC MWF [facility] Last Admin: 07/16/17 09:50 Dose: 14,000 unit Fluconazole (Diflucan) 200 mg PO DAILY [facility] PRN Reason: Protocol Last Admin: 07/17/17 08:44 Dose: Not Given Glucagon (Glucagen Diagnostic Kit) 0 mg IM STAT PRN; Protocol PRN Reason: Hypoglycemia Protocol Hydralazine HCl (Apresoline) 50 mg PO Q8 [facility] Last Admin: 07/17/17 08:43 Dose: Not Given Hydralazine HCl (Apresoline) 10 mg IV Q6 PRN PRN Reason: SBP > 170 Last Admin: 07/17/17 07:59 Dose: 10 mg Hydromorphone HCl (Dilaudid) 0.5 mg IVP Q4H PRN PRN Reason: Pain, moderate (4-7) Levetiracetam 500 mg/ Sodium (Chloride) 105 mls @ 210 mls/hr IVPB Q12 [facility] Last Admin: 07/17/17 08:40 Dose: 210 mls/hr Cefepime HCl 1 gm/ Sodium (Chloride) 50 mls @ 50 mls/hr IVPB DAILY [facility] PRN Reason: Protocol Last Admin: 07/17/17 08:40 Dose: 50 mls/hr Dextrose/Sodium Chloride (Dextrose 5%/0.45% Ns 1000 Ml) 1,000 mls @ 75 mls/hr IV .[id number] [facility] Stop: 07/17/17 12:45 Insulin Human Lispro (Humalog) 0 units SC Q6H [facility] PRN Reason: Protocol Last Admin: 07/17/17 04:42 Dose: Not Given Levothyroxine Sodium (Synthroid) 50 mcg PO DAILY@0630 [facility] Last Admin: 07/17/17 07:04 Dose: Not Given Lisinopril (Zestril) 40 mg PO DAILY [facility] Last Admin: 07/15/17 08:55 Dose: 40 mg Metoprolol Tartrate (Lopressor) 5 mg IVP Q6 [facility] Last Admin: 07/17/17 04:26 Dose: 5 mg Pantoprazole Sodium (Protonix Inj) 40 mg IVP Q12 [facility] Last Admin: 07/17/17 08:40 Dose: 40 mg Sodium Bicarbonate (Sodium Bicarbonate Tab) 1,300 mg PO Q8 [facility] Last Admin: 07/02/17 16:23 Dose: 1,300 mg Thiamine HCl (Vitamin B1 Tab) 100 mg PO DAILY [facility] Last Admin: 07/16/17 09:15 Dose: Not Given - Labs Labs: 07/17/17 05:06 07/17/17 05:06 PT 13.4 Seconds (9.8-13.1) H 07/08/17 12:50 INR 1.2 (0.9-1.2) 07/08/17 12:50 APTT 30.8 Seconds (25.6-37.1) 07/08/17 12:50 - Constitutional Appears: Non-toxic, Chronically Ill - Eye Exam Eye Exam: absent: Scleral icterus - ENT Exam ENT Exam: Mucous Membranes Moist - Respiratory Exam Additional comments: tachypneic; decreased breath sounds on L, clear on R; - Cardiovascular Exam Cardiovascular Exam: RRR, +S1, +S2. absent: JVD - GI/Abdominal Exam GI & Abdominal Exam: Soft. absent: Distended, Tenderness - Extremities Exam Additional comments: markedly edematous dependent areas and b/l arms; - Neurological Exam Neurological Exam: Alert, Awake Additional comments: responding appropriately to verbal stimuli; - Psychiatric Exam Psychiatric exam: absent: Agitated - Skin Skin Exam: Warm. absent: Cyanosis Assessment and Plan (1) Acute renal failure Assessment & Plan: CHINTAN on CKD; ATN, had been resolving; oliuria during assessment yesterday so started on IV albumin (12.5 g x 3) in addition to IVF (D5-1/2NS at 125 cc/hr); UO overall improved but still likely is intrascularly volume contracted; -will give another 2 doses of 25% IV albumin 12.5 g -decreasing D5-1/2NS to 75 cc/hr due to somewhat worsened upper ext edema; need to keep maintenance fluid to avoid worsening hypernatremia (mildly improved today -will continue to hold lisinopril temporarily until renal function and UO stabilize; hold IV enalaprilat as well; Status: Acute (2) Nephrotic syndrome Assessment & Plan: Needs to be on max dose of KEVIN blockade terminal block assembler; will likely restart lisinopril tomorrow; Status: Chronic (3) Pleural effusion Assessment & Plan: s/p R pleural biopsy, awaiting results (cytology sent as well); Status: Chronic (4) Hypertensive CKD (chronic kidney disease) Assessment & Plan: BP elevated; cannot give PO meds yet; continue IV metoprolol 5 mg q6h and hydralazine 10 mg IV q4-6h prn for SBP > 170; Status: Acute (5) Chronic kidney disease, stage 3 (moderate) Status: Chronic (6) Hypothermia Status: Acute (7) Altered mental status Status: Acute (8) SIRS (systemic inflammatory response syndrome) Status: Acute (9) Anemia Assessment & Plan: Mild drop in hgb, monitor; continu EPO 14,000 u qMWF: Status: Chronic (10) Monoclonal gammopathy Status: Chronic
--- NOTE | 2017-07-17 13:55 | CP.PCM.PN ---
Subjective - Date & Time of Evaluation Date of Evaluation: 07/17/17 Time of Evaluation: 13:49 - Subjective Subjective: Pt s/e. Extubated this am vss hct-27 cxr-good aeration of both lungs.-min babilar effusuions. Chest tubes-left:0 output. right-80 cc/24 sanguinous-No air leak. a/p: Satisfactory post op. Remove left chest tube. Right chest tubes to suction. d/w Rhys Kim and Kristy on rounds. Objective - Vital Signs/Intake and Output Vital Signs (last 24 hours): Temp Pulse Resp BP Pulse Ox 97.9 F 80 92 H 158/63 H 21 L 07/17/17 12:00 07/17/17 12:00 07/17/17 12:00 07/17/17 12:00 07/17/17 12:00 Intake and Output: 07/17/17 07/17/17 06:59 18:59 Intake Total 1700 Output Total 288 Balance 1412 - Medications Medications: Current Medications Albuterol/Ipratropium (Duoneb 3 Mg/0.5 Mg (3 Ml) Ud) 3 ml INH RQ6 PRN PRN Reason: Shortness of Breath Aspirin (Ecotrin) 81 mg PO DAILY [facility] Last Admin: 07/17/17 08:44 Dose: Not Given Bacitracin (Bacitracin Oint) 1 applic TOP DAILY [facility] Last Admin: 07/17/17 08:41 Dose: 1 applic Calcium Acetate (Phoslo) 2,001 mg PO 0830,1200,1830 [facility] Last Admin: 07/14/17 12:26 Dose: 2,001 mg Dextrose (Dextrose 50% Inj) 0 ml IV STAT PRN; Protocol PRN Reason: Hypoglycemia Protocol Dextrose (Glutose 15) 0 gm PO ONCE PRN; Protocol PRN Reason: Hypoglycemia Protocol Dextrose (Dextrose 50% Inj) 50 ml IVP Q1H PRN PRN Reason: Hypoglycemia Epoetin Roel (Procrit) 14,000 unit SC MWF [facility] Last Admin: 07/16/17 09:50 Dose: 14,000 unit Fluconazole (Diflucan) 200 mg PO DAILY [facility] PRN Reason: Protocol Last Admin: 07/17/17 08:44 Dose: Not Given Glucagon (Glucagen Diagnostic Kit) 0 mg IM STAT PRN; Protocol PRN Reason: Hypoglycemia Protocol Hydralazine HCl (Apresoline) 50 mg PO Q8 [facility] Last Admin: 07/17/17 08:43 Dose: Not Given Hydralazine HCl (Apresoline) 10 mg IV Q4H PRN PRN Reason: SBP > 170 Hydromorphone HCl (Dilaudid) 0.5 mg IVP Q4H PRN PRN Reason: Pain, moderate (4-7) Levetiracetam 500 mg/ Sodium (Chloride) 105 mls @ 210 mls/hr IVPB Q12 [facility] Last Admin: 07/17/17 08:40 Dose: 210 mls/hr Cefepime HCl 1 gm/ Sodium (Chloride) 50 mls @ 50 mls/hr IVPB DAILY [facility] PRN Reason: Protocol Last Admin: 07/17/17 08:40 Dose: 50 mls/hr Insulin Human Lispro (Humalog) 0 units SC Q6H [facility] PRN Reason: Protocol Last Admin: 07/17/17 04:42 Dose: Not Given Levothyroxine Sodium (Synthroid) 50 mcg PO DAILY@0630 [facility] Last Admin: 07/17/17 07:04 Dose: Not Given Lisinopril (Zestril) 40 mg PO DAILY [facility] Last Admin: 07/15/17 08:55 Dose: 40 mg Metoprolol Tartrate (Lopressor) 5 mg IVP Q6 [facility] Last Admin: 07/17/17 04:26 Dose: 5 mg Pantoprazole Sodium (Protonix Inj) 40 mg IVP Q12 [facility] Last Admin: 07/17/17 08:40 Dose: 40 mg Sodium Bicarbonate (Sodium Bicarbonate Tab) 1,300 mg PO Q8 [facility] Last Admin: 07/02/17 16:23 Dose: 1,300 mg Thiamine HCl (Vitamin B1 Tab) 100 mg PO DAILY [facility] Last Admin: 07/16/17 09:15 Dose: Not Given - Labs Labs: 07/17/17 05:06 07/17/17 05:06 PT 13.4 Seconds (9.8-13.1) H 07/08/17 12:50 INR 1.2 (0.9-1.2) 07/08/17 12:50 APTT 30.8 Seconds (25.6-37.1) 07/08/17 12:50
--- NOTE | 2017-07-17 14:11 | CP.CCUPN ---
Addendum entered and electronically signed by Lori Magana MD 07/17/17 16: 49: Patient desaturated to about 86% despite having non-rebreather mask. Started on high flow O2 NC with appropriate response in pulse oximetry. Patient appears more somnolent this afternoon. S/p L chest tube removal this afternoon. CXR post CT removal was reviewed. no PTX. ABG done and reviewed. High PO2 of 221: Will titrate down O2. The above was d/w Dr. Mata. Original Note: <Lori Magana - Last Filed: 07/17/17 13:59> CCU Subjective - Physician Review Subjective (Free Text): Patient seen and examined bedside. Awake and alert, following all commands. + Back pain Continues to have upper extremity swelling. Bilateral chest tubes in places. 2 chest tubes on right side: 1 Chest tube left side. Vital signs reviewed. afebrile, HR 70-80s, NSR. BP 160s, informed PO meds were not given since patient does not have OG tube. I/Os reviewed. Labs: H.1, K+ 3.4 ABG: pH: 7.40 / CO2 37 / pO2 118 / O2SAT: 99.7 Accuchecks reviewed. Trachasp: Yeast species (07/14/17) A/P: 66 year old male with PMH of HTN, DM, CKD, w/ nephrotic syndrome, monoclonal gammopathy, recurrent L pleural effusion, admitted with hypothermia, CHINTAN and altered mental status. Hypothermia/CHINTAN/AMS have resolved however patient then had subsequent respiratory failure requiring intubation thought to be 2' to persistent pleural effusions bilaterally vs PNA. Patient is alert today, tolerated CPAP and extubated this morning. Placed on venti mask. Breathing comfortably. Neuro: Awake and alert. Following commands. On keppra. Cardiovascular: HTN: On Hydralazine 50mg q8, Lopressor 5mg q6, Norvasc 10mg, started on Zestril 40mg, has Hydralazine 10mg q 6 PRN Respiratory: COPD/Bilateral pleural effusions. Has 2 chest tubes in right side: anterior/posterior tubes. 1 left sided chest tube. Bilateral breath sounds clear anteriorly, bilateral lower lobes with decreased breath sounds. Renal: -CKD stage III-IV: on lisinopril, nephrology following for nephrotic syndrome Endocrine: - DM 2, blood glucose monitoring, sliding scale insulin, hypothyroidism: on synthroid Heme: -Anemia of chronic disease: hg 9.1 ID: Cefepime, Trachasp culture: Yeast species (07/14/17) Prophylaxis: DVT: SCDS, Heparin started 07/17/17 GI: Protonix Case discussed with Dr. Chu. Tita Magana PGY-2 CCU Objective - Vital Signs / Intake & Output Vital Signs (Last 4 hours): Vital Signs Temp Pulse Resp BP Pulse Ox 07/17/17 12:00 97.9 F 80 92 H 158/63 H 21 L 07/17/17 10:00 73 15 166/63 H 100 Intake and Output (Last 8hrs): Intake & Output 07/16/17 07/17/17 07/17/17 22:59 06:59 14:59 Intake Total 1150 1050 Output Total 120 288 Balance 1030 762 Intake: IV 1000 1000 Intake, Piggyback 150 50 Output: Chest Tube Drainage 20 88 Left Mid-Axillary Chest 0 0 Right Anterior Chest 0 50 Right Posterior Chest 20 38 Urine 100 200 Urethral (Salazar) 100 200 Other: # Bowel Movements 0 - Physical Exam Head: Positive for: Atraumatic, Normocephalic Pupils: Positive for: PERRL Conjunctiva: Positive for: Normal. Negative for: Icteric Mouth: Positive for: Moist Mucous Membranes. Negative for: Dry, Drooling Neck: Positive for: Other (central line: left neck in place with dressing, biopatch still over line. clean and dry.) Respiratory/Chest: Positive for: Clear to Auscultation (anteriorly bilateraly), Good Air Exchange (on mechancal ventilation), Decreased Breath Sounds ( bilateral lung bases). Negative for: Respiratory Distress, Accessory Muscle Use , Wheezes, Tachypneic Cardiovascular: Positive for: Regular Rate and Rhythm, Normal S1, S2. Negative for: Tachycardic, Bradycardic Abdomen: Positive for: Other (soft). Negative for: Tenderness, Distention Genitourinary Male: Positive for: Penile Swelling, Testicle Swelling Upper Extremity: Positive for: Edema (bilateral 3+ pitting edema; right > left) Lower Extremity: Positive for: Normal Inspection. Negative for: Edema, Tenderness Neurological: Positive for: Other (somnolent, arousable, intubated, not following commands) Skin: Positive for: Warm, Dry, Other (skin tear back of left hand) Psychiatric: Positive for: Alert - Medications Active Medications: Active Medications Generic Name Dose Route Start Last Admin Trade Name Freq PRN Reason Stop Dose Admin Albuterol/Ipratropium 3 ml 07/14/17 15:00 Duoneb 3 Mg/0.5 Mg (3 Ml) Ud INH RQ6 PRN Shortness of Breath Aspirin 81 mg 07/14/17 09:00 07/17/17 08:44 Ecotrin PO Not Given DAILY [facility] Bacitracin 1 applic 07/11/17 09:00 07/17/17 08:41 Bacitracin Oint TOP 1 applic DAILY [facility] Administration Calcium Acetate 2,001 mg 07/05/17 08:30 07/14/17 12:26 Phoslo PO 2,001 mg 0830,1200,1830 [facility] Administration Dextrose 0 ml 06/22/17 22:36 Dextrose 50% Inj IV STAT PRN Hypoglycemia Protocol Protocol Dextrose 0 gm 06/22/17 22:36 Glutose 15 PO ONCE PRN Hypoglycemia Protocol Protocol Dextrose 50 ml 07/14/17 14:52 Dextrose 50% Inj IVP Q1H PRN Hypoglycemia Epoetin Roel 14,000 unit 07/07/17 09:00 07/16/17 09:50 Procrit SC 14,000 unit MWF [facility] Administration Fluconazole 200 mg 07/12/17 09:00 07/17/17 08:44 Diflucan PO Not Given DAILY [facility] Protocol Glucagon 0 mg 06/22/17 22:36 Glucagen Diagnostic Kit IM STAT PRN Hypoglycemia Protocol Protocol Heparin Sodium (Porcine) 5,000 units 07/17/17 21:00 Heparin SC Q12 [facility] Protocol Hydralazine HCl 50 mg 07/13/17 12:48 07/17/17 08:43 Apresoline PO Not Given Q8 [facility] Hydralazine HCl 10 mg 07/17/17 13:03 Apresoline IV Q4H PRN SBP > 170 Hydromorphone HCl 0.5 mg 07/17/17 12:35 Dilaudid IVP Q4H PRN Pain, moderate (4-7) Levetiracetam 500 mg/ Sodium 105 mls @ 210 mls/hr 07/04/17 21:00 07/17/17 08: 40 Chloride IVPB 210 mls/hr Q12 [facility] Administration Cefepime HCl 1 gm/ Sodium 50 mls @ 50 mls/hr 07/13/17 09:00 07/17/17 08:40 Chloride IVPB 50 mls/hr DAILY [facility] Administration Protocol Insulin Human Lispro 0 units 07/12/17 09:45 07/17/17 04:42 Humalog SC Not Given Q6H [facility] Protocol Levothyroxine Sodium 50 mcg 07/05/17 06:30 07/17/17 07:04 Synthroid PO Not Given DAILY@0630 [facility] Lisinopril 40 mg 07/15/17 09:00 07/15/17 08:55 Zestril PO 40 mg DAILY [facility] Administration Metoprolol Tartrate 5 mg 07/14/17 14:51 07/17/17 04:26 Lopressor IVP 5 mg Q6 [facility] Administration Pantoprazole Sodium 40 mg 07/08/17 21:00 07/17/17 08:40 Protonix Inj IVP 40 mg Q12 [facility] Administration Sodium Bicarbonate 1,300 mg 06/30/17 17:00 07/02/17 16:23 Sodium Bicarbonate Tab PO 1,300 mg Q8 [facility] Administration Thiamine HCl 100 mg 07/15/17 09:00 07/16/17 09:15 Vitamin B1 Tab PO Not Given DAILY [facility] - Patient Studies Lab Studies: Microbiology Studies 07/14/17 19:35 Gram Stain - Final Trachasp Sputum Culture - Final Yeast Species 06/25/17 16:51 Fungal Culture - Preliminary Pleural Fluid NO FUNGUS GROWTH IN 2 WEEKS. 07/08/17 09:24 Mycobacterial Culture - Preliminary Other: Please Indicate 07/08/17 06:15 Mycobacterial Culture - Preliminary Other: Please Indicate Lab Studies 07/17/17 07/17/17 07/17/17 Range/Units 11:08 05:22 05:06 WBC (4.8-10.8) K/uL RBC (4.40-5.90) Mil/uL Hgb (12.0-18.0) g/dL Hct (35.0-51.0) % MCV (80.0-94.0) fl MCH (27.0-31.0) pg MCHC (33.0-37.0) g/dL RDW (11.5-14.5) % Plt Count (130-400) K/uL MPV (7.2-11.7) fl Neut % (Auto) (50.0-75.0) % Lymph % (Auto) (20.0-40.0) % Mclean % (Auto) (0.0-10.0) % Eos % (Auto) (0.0-4.0) % Baso % (Auto) (0.0-2.0) % Neut # (1.8-7.0) K/uL Lymph # (1.0-4.3) K/uL Mclean # (0.0-0.8) K/uL Eos # (0.0-0.7) K/uL Baso # (0.0-0.2) K/uL pCO2 37 (35-45) mm/Hg pO2 118 H (80-100) mm/Hg HCO3 23.7 (21-28) mmol/L ABG pH 7.40 (7.35-7.45) ABG Total CO2 24.0 (22-28) mmol/L ABG O2 Saturation 99.7 H (95-98) % ABG O2 Content 13.6 L (15-23) ML/dL ABG Base Excess -1.6 (-2.0-3.0) mmol/L ABG Hemoglobin 9.8 L (11.7-17.4) g/dL ABG Carboxyhemoglobin 1.5 (0.5-1.5) % POC ABG HHb (Measured) 0.3 (0.0-5.0) % ABG Methemoglobin 1.3 (0.0-3.0) % ABG O2 Capacity 13.6 L (16-24) mL/dL Andry Test Yes A-a O2 Difference 85.0 mm/Hg Hgb O2 Saturation 96.9 (95.0-98.0) % Vent Mode Prvc ac Mechanical Rate 12 FiO2 35.0 % Tidal Volume 450 PEEP 5 Sodium 148 (132-148) mmol/l Potassium 3.4 L (3.6-5.0) MMOL/L Chloride 115 H (98-107) mmol/L Carbon Dioxide 24 (22-30) mmol/L Anion Gap 12 (10-20) BUN 37 H (9-20) mg/dl Creatinine 2.1 H (0.8-1.5) mg/dl Est GFR ( Amer) 38 Est GFR (Non-Af Amer) 32 POC Glucose (mg/dL) 178 H (65-110) mg/dL Random Glucose 197 H (75-110) mg/dL Calcium 8.2 L (8.4-10.2) mg/dL Total Bilirubin 0.6 (0.2-1.3) mg/dl AST 30 (17-59) U/L ALT 29 (21-72) U/L Alkaline Phosphatase 134 H (38-126) U/L Total Protein 5.2 L (6.3-8.2) G/DL Albumin 2.5 L (3.5-5.0) g/dL Globulin 2.7 (2.2-3.9) gm/dL Albumin/Globulin Ratio 0.9 L (1.0-2.1) Brucella IgG Antibody Brucella IgM Antibody 07/17/17 07/17/17 07/16/17 Range/Units 05:06 04:41 21:26 WBC 6.6 (4.8-10.8) K/uL RBC 2.96 L (4.40-5.90) Mil/uL Hgb 9.1 L (12.0-18.0) g/dL Hct 27.7 L (35.0-51.0) % MCV 93.4 (80.0-94.0) fl MCH 30.6 (27.0-31.0) pg MCHC 32.8 L (33.0-37.0) g/dL RDW 17.5 H (11.5-14.5) % Plt Count 268 (130-400) K/uL MPV 10.1 (7.2-11.7) fl Neut % (Auto) 72.0 (50.0-75.0) % Lymph % (Auto) 15.8 L (20.0-40.0) % Mclean % (Auto) 9.3 (0.0-10.0) % Eos % (Auto) 1.5 (0.0-4.0) % Baso % (Auto) 1.4 (0.0-2.0) % Neut # 4.8 (1.8-7.0) K/uL Lymph # 1.0 (1.0-4.3) K/uL Mclean # 0.6 (0.0-0.8) K/uL Eos # 0.1 (0.0-0.7) K/uL Baso # 0.1 (0.0-0.2) K/uL pCO2 (35-45) mm/Hg pO2 (80-100) mm/Hg HCO3 (21-28) mmol/L ABG pH (7.35-7.45) ABG Total CO2 (22-28) mmol/L ABG O2 Saturation (95-98) % ABG O2 Content (15-23) ML/dL ABG Base Excess (-2.0-3.0) mmol/L ABG Hemoglobin (11.7-17.4) g/dL ABG Carboxyhemoglobin (0.5-1.5) % POC ABG HHb (Measured) (0.0-5.0) % ABG Methemoglobin (0.0-3.0) % ABG O2 Capacity (16-24) mL/dL Andry Test A-a O2 Difference mm/Hg Hgb O2 Saturation (95.0-98.0) % Vent Mode Mechanical Rate FiO2 % Tidal Volume PEEP Sodium (132-148) mmol/l Potassium (3.6-5.0) MMOL/L Chloride (98-107) mmol/L Carbon Dioxide (22-30) mmol/L Anion Gap (10-20) BUN (9-20) mg/dl Creatinine (0.8-1.5) mg/dl Est GFR ( Amer) Est GFR (Non-Af Amer) POC Glucose (mg/dL) 211 H 162 H (65-110) mg/dL Random Glucose (75-110) mg/dL Calcium (8.4-10.2) mg/dL Total Bilirubin (0.2-1.3) mg/dl AST (17-59) U/L ALT (21-72) U/L Alkaline Phosphatase (38-126) U/L Total Protein (6.3-8.2) G/DL Albumin (3.5-5.0) g/dL Globulin (2.2-3.9) gm/dL Albumin/Globulin Ratio (1.0-2.1) Brucella IgG Antibody Brucella IgM Antibody 07/16/17 07/14/17 Range/Units 17:06 04:20 WBC (4.8-10.8) K/uL RBC (4.40-5.90) Mil/uL Hgb (12.0-18.0) g/dL Hct (35.0-51.0) % MCV (80.0-94.0) fl MCH (27.0-31.0) pg MCHC (33.0-37.0) g/dL RDW (11.5-14.5) % Plt Count (130-400) K/uL MPV (7.2-11.7) fl Neut % (Auto) (50.0-75.0) % Lymph % (Auto) (20.0-40.0) % Mclean % (Auto) (0.0-10.0) % Eos % (Auto) (0.0-4.0) % Baso % (Auto) (0.0-2.0) % Neut # (1.8-7.0) K/uL Lymph # (1.0-4.3) K/uL Mclean # (0.0-0.8) K/uL Eos # (0.0-0.7) K/uL Baso # (0.0-0.2) K/uL pCO2 (35-45) mm/Hg pO2 (80-100) mm/Hg HCO3 (21-28) mmol/L ABG pH (7.35-7.45) ABG Total CO2 (22-28) mmol/L ABG O2 Saturation (95-98) % ABG O2 Content (15-23) ML/dL ABG Base Excess (-2.0-3.0) mmol/L ABG Hemoglobin (11.7-17.4) g/dL ABG Carboxyhemoglobin (0.5-1.5) % POC ABG HHb (Measured) (0.0-5.0) % ABG Methemoglobin (0.0-3.0) % ABG O2 Capacity (16-24) mL/dL Andry Test A-a O2 Difference mm/Hg Hgb O2 Saturation (95.0-98.0) % Vent Mode Mechanical Rate FiO2 % Tidal Volume PEEP Sodium (132-148) mmol/l Potassium (3.6-5.0) MMOL/L Chloride (98-107) mmol/L Carbon Dioxide (22-30) mmol/L Anion Gap (10-20) BUN (9-20) mg/dl Creatinine (0.8-1.5) mg/dl Est GFR ( Amer) Est GFR (Non-Af Amer) POC Glucose (mg/dL) 127 H (65-110) mg/dL Random Glucose (75-110) mg/dL Calcium (8.4-10.2) mg/dL Total Bilirubin (0.2-1.3) mg/dl AST (17-59) U/L ALT (21-72) U/L Alkaline Phosphatase (38-126) U/L Total Protein (6.3-8.2) G/DL Albumin (3.5-5.0) g/dL Globulin (2.2-3.9) gm/dL Albumin/Globulin Ratio (1.0-2.1) Brucella IgG Antibody 0.12 Brucella IgM Antibody 0.06 Laboratory Results - last 24 hr 07/14/17 07/16/17 07/16/17 04:20 17:06 21:26 WBC RBC Hgb Hct MCV MCH MCHC RDW Plt Count MPV Neut % (Auto) Lymph % (Auto) Mclean % (Auto) Eos % (Auto) Baso % (Auto) Neut # Lymph # Mclean # Eos # Baso # pCO2 pO2 HCO3 ABG pH ABG Total CO2 ABG O2 Saturation ABG O2 Content ABG Base Excess ABG Hemoglobin ABG Carboxyhemoglobin POC ABG HHb (Measured) ABG Methemoglobin ABG O2 Capacity Andry Test A-a O2 Difference Hgb O2 Saturation Vent Mode Mechanical Rate FiO2 Tidal Volume PEEP Sodium Potassium Chloride Carbon Dioxide Anion Gap BUN Creatinine Est GFR ( Amer) Est GFR (Non-Af Amer) POC Glucose (mg/dL) 127 H 162 H Random Glucose Calcium Total Bilirubin AST ALT Alkaline Phosphatase Total Protein Albumin Globulin Albumin/Globulin Ratio Brucella IgG Antibody 0.12 Brucella IgM Antibody 0.06 07/17/17 07/17/17 07/17/17 04:41 05:06 05:06 WBC 6.6 RBC 2.96 L Hgb 9.1 L Hct 27.7 L MCV 93.4 MCH 30.6 MCHC 32.8 L RDW 17.5 H Plt Count 268 MPV 10.1 Neut % (Auto) 72.0 Lymph % (Auto) 15.8 L Mclean % (Auto) 9.3 Eos % (Auto) 1.5 Baso % (Auto) 1.4 Neut # 4.8 Lymph # 1.0 Mclean # 0.6 Eos # 0.1 Baso # 0.1 pCO2 pO2 HCO3 ABG pH ABG Total CO2 ABG O2 Saturation ABG O2 Content ABG Base Excess ABG Hemoglobin ABG Carboxyhemoglobin POC ABG HHb (Measured) ABG Methemoglobin ABG O2 Capacity Andry Test A-a O2 Difference Hgb O2 Saturation Vent Mode Mechanical Rate FiO2 Tidal Volume PEEP Sodium 148 Potassium 3.4 L Chloride 115 H Carbon Dioxide 24 Anion Gap 12 BUN 37 H Creatinine 2.1 H Est GFR ( Amer) 38 Est GFR (Non-Af Amer) 32 POC Glucose (mg/dL) 211 H Random Glucose 197 H Calcium 8.2 L Total Bilirubin 0.6 AST 30 ALT 29 Alkaline Phosphatase 134 H Total Protein 5.2 L Albumin 2.5 L Globulin 2.7 Albumin/Globulin Ratio 0.9 L Brucella IgG Antibody Brucella IgM Antibody 07/17/17 07/17/17 05:22 11:08 WBC RBC Hgb Hct MCV MCH MCHC RDW Plt Count MPV Neut % (Auto) Lymph % (Auto) Mclean % (Auto) Eos % (Auto) Baso % (Auto) Neut # Lymph # Mclean # Eos # Baso # pCO2 37 pO2 118 H HCO3 23.7 ABG pH 7.40 ABG Total CO2 24.0 ABG O2 Saturation 99.7 H ABG O2 Content 13.6 L ABG Base Excess -1.6 ABG Hemoglobin 9.8 L ABG Carboxyhemoglobin 1.5 POC ABG HHb (Measured) 0.3 ABG Methemoglobin 1.3 ABG O2 Capacity 13.6 L Andry Test Yes A-a O2 Difference 85.0 Hgb O2 Saturation 96.9 Vent Mode Prvc ac Mechanical Rate 12 FiO2 35.0 Tidal Volume 450 PEEP 5 Sodium Potassium Chloride Carbon Dioxide Anion Gap BUN Creatinine Est GFR ( Amer) Est GFR (Non-Af Amer) POC Glucose (mg/dL) 178 H Random Glucose Calcium Total Bilirubin AST ALT Alkaline Phosphatase Total Protein Albumin Globulin Albumin/Globulin Ratio Brucella IgG Antibody Brucella IgM Antibody Fingerstick Blood Sugar Results: 178 Critical Care Progress Note - Nutrition Nutrition: Nutrition Category Date Time Status NPO Diet [DIET] Diets 07/15/17 Dinner Active <Ervin Mata - Last Filed: 07/17/17 17:19> CCU Subjective - Physician Review Subjective (Free Text): Attestation: Patient seen and examined at the bedside with Resident Dr. Tita Magana; and I agree with her outline of plans and management documented above as discussed on AM rounds reflecting my review of all applicable clinical data, and participation in the care of the patient throughout the day in ICU; July 17, 2017.
[2017-07-17] MEDS ORDERED: HYDROmorphone 0.5 mg/0.5 ml ISec ONE (14:27)
[2017-07-17] MEDS: HYDROmorphone 0.5 mg/0.5 ml ISec IVP PRN (14:38)
--- NOTE | 2017-07-17 15:47 | RAD ---
PROCEDURE: CHEST RADIOGRAPH, 1 VIEW HISTORY: chest tube pull COMPARISON: 07/17/2017 at 4:42 a.m. FINDINGS: LUNGS: No pulmonary infiltrate. PLEURA: Small bilateral pleural effusion, grossly unchanged. 2 right apical chest tubes unchanged. Status post removal of left chest tube. No pneumothorax. CARDIOVASCULAR: Normal heart size. Left subclavian central venous catheter terminating in the region of the junction of the brachiocephalic vein and superior vena cava. OSSEOUS STRUCTURES: No significant abnormalities. VISUALIZED UPPER ABDOMEN: Normal. OTHER FINDINGS: None. IMPRESSION: Status post removal of left chest tube with no evidence of pneumothorax. Small bilateral pleural effusion. No infiltrate.
[2017-07-17] MEDS ORDERED: Albuterol-Ipratrop 3 mg / 0.5 (3 ml) UD INH STA (16:15)
[2017-07-17 16:32] LABS: ABG ALLEN TEST YES; ARTERIAL BLOOD GAS HCO3 23.5 mmol/L (21-28); ARTERIAL BLOOD GAS HEMOGLOBIN 10.7 g/dL (11.7-17.4); ARTERIAL BLOOD GAS O2 CAPACITY 15.1 mL/dL (16-24); ARTERIAL BLOOD GAS O2 CONTENT 15.1 ML/dL (15-23); ARTERIAL BLOOD GAS O2 SAT 99.7 % (95-98); ARTERIAL BLOOD GAS PCO2 39 mm/Hg (35-45); ARTERIAL BLOOD GAS PH 7.38 (7.35-7.45); ARTERIAL BLOOD GAS PO2 221 mm/Hg (80-100); ARTERIAL BLOOD GAS TCO2 24.3 mmol/L (22-28)
--- NOTE | 2017-07-17 17:18 | PCM.PROC ---
Procedures Attestation:: I certify that I have explained the specified Operation(s) or Procedure(s), risks, benefits and reasonable alternatives to the Patient and/or other person responsible. The opportunity was given to ask questions and all questions answered - Extubation Clinical Parameters: Resolution/Stabilization of disease process, Hemodynamically Stable, Intact Cough/Gag Reflex, Spontaneous Respirations, Acceptable Vent Settings (FIO2<50%, PEEP<8, PaO2>75, pH>7.25) Weaning Criteria Met: Yes General Weaning Approaches: Pressure Support Ventilation (PSV) Weaning Patient Condition: Patient has been successfully extubated and assessed Oxygen Therapy: O2 via Venti Mask (40%) Patient Tolerated Procedure: Well
--- NOTE | 2017-07-17 18:28 | PN ---
DATE: ENDOCRINOLOGY FOLLOWUP NOTE LOCATION: Room 433, ICU. SUBJECTIVE: This is a 66-year-old male with recent acute respiratory failure and recently reintubated this time and is now being followed closely for metabolic management. His glycemic levels are fluctuating but improved and the glucose levels have ranged from 145 to 178 and 211 mg/dL. His latest chemistry shows a BUN of 37, sodium 148, potassium 3.4, chloride 115, CO2 of 37, and glucose 197 with a creatinine of 2.1. His latest thyroid studies show a T4 of 7.96 with a TSH of 2.62. So, at this time, we will continue the low-dose correction scale using Humalog insulin as given every 6 hours. We will also continue the levothyroxine given as 50 mcg once daily as ordered. We will titrate incrementally as indicated to optimize metabolic control. We will follow and advise accordingly. Bettina Mann MD
[2017-07-17] MEDS: Albumin Human 25% (12.5 gm/50 ml) IV SCH (23:55)
[2017-07-18] MEDS: Dextrose 5%/0.45% NS 1,000 ML IV SCH (04:02)
[2017-07-18] MEDS: Insulin Lispro (humaLOG) 100 Units/ml Inj SC SCH ×4 (04:03→21:49)
[2017-07-18] MEDS: Metoprolol 1 mg/ml Inj IVP SCH ×4 (04:04→22:19)
[2017-07-18] MEDS: HYDROmorphone 0.5 mg/0.5 ml ISec IVP PRN (04:13)
[2017-07-18] MEDS: Albumin Human 25% (12.5 gm/50 ml) IV SCH (05:17)
[2017-07-18] MEDS: Levothyroxine 50 MCG TAB PO SCH (05:30)
[2017-07-18 06:23] LABS: HEMOGLOBIN 8.9 g/dL (12.0-18.0); MEAN CELL VOLUME 93.5 fl (80.0-94.0); MEAN CORPUSCULAR HEMOGLOBIN 29.8 pg (27.0-31.0); MEAN CORPUSCULAR HGB CONC 31.9 g/dL (33.0-37.0); RBC 2.98 Mil/uL (4.40-5.90); RED CELL DISTRIBUTION WIDTH 17.8 % (11.5-14.5)
[2017-07-18 06:36] LABS: ALB/GLOB RATIO 0.9 (1.0-2.1); ALBUMIN 2.4 g/dL (3.5-5.0); CALCIUM 7.7 mg/dL (8.4-10.2)
[2017-07-18] MEDS ORDERED: Potassium Chloride 20 mEq ER Tab PO ONE (06:44)
[2017-07-18 06:54] LABS: INR 1.4 (0.9-1.2); PARTIAL THROMBOPLASTIN TIME 34.2 Seconds (25.6-37.1); PROTHROMBIN TIME 15.3 Seconds (9.8-13.1)
[2017-07-18] MEDS ORDERED: Potassium CL 10 MEQ/50 ML 50 ML IVPB SCH (07:00)
--- NOTE | 2017-07-18 07:14 | CP.PCM.PN ---
Subjective - Date & Time of Evaluation Date of Evaluation: 07/18/17 Time of Evaluation: 07:12 - Subjective Subjective: CT surgery progress note for Dr. Hannah Vila, PGY-1 Pt S & E at bedside. Pt s/p ex-tubation, stable overnight. No acute events as per nursing. R posterior CT w/700cc out/12H, R anterior CT w/0cc out/12H. No air leak bilaterally Objective - Vital Signs/Intake and Output Vital Signs (last 24 hours): Temp Pulse Resp BP Pulse Ox 97.3 F L 67 20 174/70 H 97 07/18/17 04:00 07/18/17 06:00 07/18/17 06:00 07/18/17 06:00 07/18/17 06:00 Intake and Output: 07/18/17 07/18/17 06:59 18:59 Intake Total 1100 Output Total 988 Balance 112 - Medications Medications: Current Medications Albuterol/Ipratropium (Duoneb 3 Mg/0.5 Mg (3 Ml) Ud) 3 ml INH RQ6 PRN PRN Reason: Shortness of Breath Aspirin (Ecotrin) 81 mg PO DAILY [facility] Last Admin: 07/17/17 08:44 Dose: Not Given Bacitracin (Bacitracin Oint) 1 applic TOP DAILY [facility] Last Admin: 07/17/17 08:41 Dose: 1 applic Calcium Acetate (Phoslo) 2,001 mg PO 0830,1200,1830 [facility] Last Admin: 07/14/17 12:26 Dose: 2,001 mg Dextrose (Dextrose 50% Inj) 0 ml IV STAT PRN; Protocol PRN Reason: Hypoglycemia Protocol Dextrose (Glutose 15) 0 gm PO ONCE PRN; Protocol PRN Reason: Hypoglycemia Protocol Dextrose (Dextrose 50% Inj) 50 ml IVP Q1H PRN PRN Reason: Hypoglycemia Epoetin Roel (Procrit) 14,000 unit SC MWF [facility] Last Admin: 07/16/17 09:50 Dose: 14,000 unit Fluconazole (Diflucan) 200 mg PO DAILY [facility] PRN Reason: Protocol Last Admin: 07/17/17 08:44 Dose: Not Given Glucagon (Glucagen Diagnostic Kit) 0 mg IM STAT PRN; Protocol PRN Reason: Hypoglycemia Protocol Heparin Sodium (Porcine) (Heparin) 5,000 units SC Q12 [facility] PRN Reason: Protocol Last Admin: 07/17/17 22:44 Dose: 5,000 units Hydralazine HCl (Apresoline) 50 mg PO Q8 [facility] Last Admin: 07/18/17 01:46 Dose: Not Given Hydralazine HCl (Apresoline) 10 mg IV Q4H PRN PRN Reason: SBP > 170 Last Admin: 07/17/17 17:15 Dose: 10 mg Hydromorphone HCl (Dilaudid) 0.5 mg IVP Q4H PRN PRN Reason: Pain, moderate (4-7) Last Admin: 07/18/17 04:13 Dose: 0.5 mg Levetiracetam 500 mg/ Sodium (Chloride) 105 mls @ 210 mls/hr IVPB Q12 [facility] Last Admin: 07/17/17 22:45 Dose: 210 mls/hr Cefepime HCl 1 gm/ Sodium (Chloride) 50 mls @ 50 mls/hr IVPB DAILY [facility] PRN Reason: Protocol Last Admin: 07/17/17 08:40 Dose: 50 mls/hr Dextrose/Sodium Chloride (Dextrose 5%/0.45% Ns 1000 Ml) 1,000 mls @ 75 mls/hr IV .[id number] [facility] Stop: 07/18/17 18:35 Last Admin: 07/18/17 04:02 Dose: 75 mls/hr Potassium Chloride 10 meq/ (Sodium Chloride) 55 mls @ 55 mls/hr IV Q1 [facility] Stop: 07/18/17 10:59 Insulin Human Lispro (Humalog) 0 units SC Q6H [facility] PRN Reason: Protocol Last Admin: 07/18/17 04:03 Dose: Not Given Levothyroxine Sodium (Synthroid) 50 mcg PO DAILY@0630 [facility] Last Admin: 07/18/17 05:30 Dose: Not Given Lisinopril (Zestril) 40 mg PO DAILY [facility] Last Admin: 07/15/17 08:55 Dose: 40 mg Metoprolol Tartrate (Lopressor) 5 mg IVP Q6 [facility] Last Admin: 07/18/17 04:04 Dose: 5 mg Pantoprazole Sodium (Protonix Inj) 40 mg IVP Q12 [facility] Last Admin: 07/17/17 22:49 Dose: 40 mg Sodium Bicarbonate (Sodium Bicarbonate Tab) 1,300 mg PO Q8 [facility] Last Admin: 07/02/17 16:23 Dose: 1,300 mg Thiamine HCl (Vitamin B1 Tab) 100 mg PO DAILY [facility] Last Admin: 07/17/17 08:45 Dose: Not Given - Labs Labs: 07/18/17 05:30 07/18/17 05:30 PT 15.3 Seconds (9.8-13.1) H 07/18/17 05:30 INR 1.4 (0.9-1.2) H 07/18/17 05:30 APTT 34.2 Seconds (25.6-37.1) 07/18/17 05:30 - Constitutional Appears: Non-toxic, No Acute Distress - Head Exam Head Exam: ATRAUMATIC, NORMAL INSPECTION, NORMOCEPHALIC - Eye Exam Eye Exam: EOMI, Normal appearance - ENT Exam ENT Exam: Mucous Membranes Moist, Normal Exam - Neck Exam Neck Exam: Normal Inspection - Respiratory Exam Respiratory Exam: NORMAL BREATHING PATTERN Additional comments: Right chest wall with dressing in place over CT insertion sites- Clean/dry/ intact - Cardiovascular Exam Cardiovascular Exam: REGULAR RHYTHM, +S1, +S2 - GI/Abdominal Exam GI & Abdominal Exam: Soft - Neurological Exam Neurological Exam: Alert, Awake - Skin Skin Exam: Dry, Intact, Normal Color, Warm Assessment and Plan - Assessment and Plan (Free Text) Assessment: 66M POD#3 s/p mini R mini thoracotamy and anterior and posterior chest tube placement, and removal of traumatic chest tube. Plan: Patient stable R CTs to suction Monitor outputs Followup daily CXRs Aggressive pulmonary toilet CT chest with atelectasis, circumferentially loculated effusion, and consolidation of left lower lobe, right lower lobe with trace effusion & atelectasis and consolidation- reviewed with attending No surgical intervention at this time May need pleurodesis in the future DW attending Cadence, PGY-1
[2017-07-18] MEDS: Bacitracin OINT 15GM TOP SCH (09:23)
[2017-07-18] MEDS: levETIRAcetam 500 MG in Sodium Chloride 0.9% 100 ML IVPB SCH ×2 (09:24→20:45)
--- NOTE | 2017-07-18 09:30 | CP.PCM.PN ---
Subjective - Date & Time of Evaluation Date of Evaluation: 07/18/17 Time of Evaluation: 07:15 - Subjective Subjective: Patient seen and examined bedside. Patient extubated,using high flow 70 % 35 LPM , awake,alert,able to follow commands, nodding head reporting right side chest pain. unable to talk clear, but unable to said he is in Power. Left side chest tube removed yesterday. Salazar with dark yellow urine 250 ml. Right side chest tube anterior 40 ml and posterior. When asked patient about CPR and intubation reports and shakes his head reporting YES, but unsure in patient is competent to make decision. Psyq will evaluate patient medical decision making capacity Objective - Vital Signs/Intake and Output Vital Signs (last 24 hours): Temp Pulse Resp BP Pulse Ox 97.6 F 67 15 173/73 H 94 L 07/18/17 08:00 07/18/17 09:24 07/18/17 08:23 07/18/17 09:24 07/18/17 08:00 Intake and Output: 07/18/17 07/18/17 06:59 18:59 Intake Total 1100 Output Total 988 Balance 112 - Medications Medications: Current Medications Albuterol/Ipratropium (Duoneb 3 Mg/0.5 Mg (3 Ml) Ud) 3 ml INH RQ6 [facility] Aspirin (Ecotrin) 81 mg PO DAILY [facility] Last Admin: 07/18/17 09:23 Dose: Not Given Bacitracin (Bacitracin Oint) 1 applic TOP DAILY [facility] Last Admin: 07/18/17 09:23 Dose: 1 applic Calcium Acetate (Phoslo) 2,001 mg PO 0830,1200,1830 [facility] Last Admin: 07/14/17 12:26 Dose: 2,001 mg Dextrose (Dextrose 50% Inj) 0 ml IV STAT PRN; Protocol PRN Reason: Hypoglycemia Protocol Dextrose (Glutose 15) 0 gm PO ONCE PRN; Protocol PRN Reason: Hypoglycemia Protocol Dextrose (Dextrose 50% Inj) 50 ml IVP Q1H PRN PRN Reason: Hypoglycemia Epoetin Roel (Procrit) 14,000 unit SC MWF [facility] Last Admin: 07/16/17 09:50 Dose: 14,000 unit Fluconazole (Diflucan) 200 mg PO DAILY [facility] PRN Reason: Protocol Last Admin: 07/18/17 09:23 Dose: Not Given Glucagon (Glucagen Diagnostic Kit) 0 mg IM STAT PRN; Protocol PRN Reason: Hypoglycemia Protocol Heparin Sodium (Porcine) (Heparin) 5,000 units SC Q12 [facility] PRN Reason: Protocol Last Admin: 07/18/17 09:23 Dose: 5,000 units Hydralazine HCl (Apresoline) 50 mg PO Q8 [facility] Last Admin: 07/18/17 09:22 Dose: Not Given Hydralazine HCl (Apresoline) 10 mg IV Q4H PRN PRN Reason: SBP > 170 Last Admin: 07/17/17 17:15 Dose: 10 mg Hydromorphone HCl (Dilaudid) 0.5 mg IVP Q4H PRN PRN Reason: Pain, moderate (4-7) Last Admin: 07/18/17 04:13 Dose: 0.5 mg Levetiracetam 500 mg/ Sodium (Chloride) 105 mls @ 210 mls/hr IVPB Q12 [facility] Last Admin: 07/18/17 09:24 Dose: 210 mls/hr Cefepime HCl 1 gm/ Sodium (Chloride) 50 mls @ 50 mls/hr IVPB DAILY [facility] PRN Reason: Protocol Last Admin: 07/17/17 08:40 Dose: 50 mls/hr Potassium Chloride 10 meq/ (Sodium Chloride) 55 mls @ 55 mls/hr IV Q1 [facility] Stop: 07/18/17 10:59 Last Admin: 07/18/17 09:23 Dose: 55 mls/hr Potassium Chloride/Dextrose/Sod Cl (Potassium Chl 20 Meq In D5-1/2ns) 1,000 mls @ 125 mls/hr IV .Q8H [facility] Stop: 07/19/17 09:15 Insulin Human Lispro (Humalog) 0 units SC Q6H [facility] PRN Reason: Protocol Last Admin: 07/18/17 04:03 Dose: Not Given Levothyroxine Sodium (Synthroid) 50 mcg PO DAILY@0630 [facility] Last Admin: 07/18/17 05:30 Dose: Not Given Lisinopril (Zestril) 40 mg PO DAILY [facility] Last Admin: 07/15/17 08:55 Dose: 40 mg Metoprolol Tartrate (Lopressor) 5 mg IVP Q6 [facility] Last Admin: 07/18/17 09:24 Dose: 5 mg Pantoprazole Sodium (Protonix Inj) 40 mg IVP Q12 [facility] Last Admin: 07/18/17 09:25 Dose: 40 mg Sodium Bicarbonate (Sodium Bicarbonate Tab) 1,300 mg PO Q8 [facility] Last Admin: 07/02/17 16:23 Dose: 1,300 mg Thiamine HCl (Vitamin B1 Tab) 100 mg PO DAILY [facility] Last Admin: 07/18/17 09:26 Dose: Not Given - Labs Labs: 07/18/17 05:30 07/18/17 05:30 PT 15.3 Seconds (9.8-13.1) H 07/18/17 05:30 INR 1.4 (0.9-1.2) H 07/18/17 05:30 APTT 34.2 Seconds (25.6-37.1) 07/18/17 05:30 - Constitutional Appears: Non-toxic, In Acute Distress - Head Exam Head Exam: ATRAUMATIC, NORMOCEPHALIC - Respiratory Exam Respiratory Exam: Decreased Breath Sounds. absent: Rales, Rhonchi, Wheezes, Stridor Additional comments: left side hemithorax absent breath sound Right side anterior and posterior chest tube. left side triple lumen subclavian catheter. - Cardiovascular Exam Cardiovascular Exam: REGULAR RHYTHM, +S1, +S2 - GI/Abdominal Exam GI & Abdominal Exam: Soft, Normal Bowel Sounds. absent: Tenderness - Extremities Exam Extremities Exam: absent: Pedal Edema Additional comments: B/L hands and forearm edema improving 1+. left hand abrasion with scab formation - Neurological Exam Neurological Exam: Alert, Awake - Psychiatric Exam Psychiatric exam: Normal Mood - Skin Additional comments: left hand abrasion with scab formation Assessment and Plan - Assessment and Plan (Free Text) Plan: 66 yo M w/ PMHx HTN, DM, DM nephropathy, monoclonal gammopathy, recurrent L pleural effusion admitted for sepsis, Hypothermia, CHINTAN on CKD currently intubated and Full Code Will have Psyq evaluation for medical decision making capacity 1) Acute Respiratory Failure -Extubated yesterday -on High flow 70% 35 LPM -s/p OR relocation right chest tube for Pneumotorax -sputum cx ross Alb fungus cx. , diflucan PO, mycamine day 15 -CXR today: left side hemithorax opacification.Possible atelectasia by me. no official report yet -Pulmonology reconsulted Dr joshi.Pending evaluation 2) Recurrent Left Pleural effusion, Transudate -Pulmonology consult appreciated: no benefit for bronchoscopy or lung biopsy -Cardiothoracic surgery consult appreciated, considering talc pleurodesis - s/p left side chest tube removed -s/p chest tube placement POD#7 right side.removal and Relocation new chest tube day2 -s/p right side chest tube anterior POD#3 and right side chest tube post Posterior POD#3 -CT chest s/p relocation chest tube right side and showed left pleural effusion partially loculated -quantiferon gold:indeterminate, AFB x4 neg -f/u pleural cx 3) Hypernatremia -secondary to low intake after OR relocation right chest tube -NGT possible needed -Hydration D5 1/2 NS 125 ml/h -f/u BMP 4) HAP -improved -c/w cefepime day # 23 5) DM nephropathy -Kidney biopsy 06/05/17: Diabetic nephropathy, nodular glomerulosclerosis, associated with aprox 40 % globally sclerosed glomeruli( calss III), 10-15 % segmentally sclerosed glomeruli, docal moderate interstitial fibrosis and mod vascular sclerosis, including marked hyaline arteriolosclerosis.NO EVIDENCE OF MONOCLONAL LIGHT OR HEAVY CHAIN-RELATED RENAL DISEASE. -Nephro consult appreciated: on D5-1/2 NS at 125ml/h, albumin 12.5 g x 2 Lisinopril hold. Enalaprilat IV 1.25 Q6h deb, Hydralazine 50 Q8h -Renal duplex: no renal vein thrombosis 6) CHINTAN on CKD stage 4 w/ new onset of ATN -BUN/Cr improving - Nephorologist consult appreciated -no steroids, no Hd -lisinopril hold 7) Hypothyroidism, subclinical -Econdrinologist consult appreciated -c/w levothryroxin 50 mcg daily 8) Hyperprolactinemia -Prolactin trending down -Endocrionologist consult suggested -MRI brain:no inracraneal hemorrhage, chronic lacunar infarct b/l cerebral, changes in dali haydee represent chronic ischemia or sequela of osmotic myelonilolysis not excluded.chronic b/l basal nuclei lacunar infarcts, mastoid ppasification secondary to intubation 9) Pressure Ulcer and TDI -resolved 10) pEF CHF -Echo 05/31/17 normal EF 60-65% -c/w Metoprolol IV, hydralazine 50 mg Q8h PRN 11) DM 2 -SSI 12) HTN - Hydralazine 50 Q8. To keep systolic BP 150 - Metropolol Tartrate 5 mg IV deb q 6h -lisinopril 30mg daily 13) Anemia -secondary to CKD -s/p transfucion 4u pRBC -Hgb:8.9 -C/W procrit 14) DVT prophylaxis -Heparin hold (Cr Cl 32 ml) 15) GI prophylaxis -Pantoprazol 40 mg IV
--- NOTE | 2017-07-18 09:33 | CP.CCUPN ---
<Magana,Reginamelita - Last Filed: 07/18/17 09:29> CCU Subjective - Physician Review Subjective (Free Text): 07/18/17 10:01 Patient seen and examined bedside. More awake and alert this morning, following all commands. Complaining of pain on right chest. No respiratory distress. Continues to have upper extremity edema, slightly improved from yesterday. Vital signs reviewed. Afebrile, hypertensive. I/Os reviewed. Right chest tube output for anterior/posterior reviewed. Posterior tube with 520cc/last 24 hrs. Anterior tube no output Weight : 148, up from 143 yesterday. Labs: H.9, Na+:150, K+:3.1 CXR reviewed: left hemithorax whiteout, trachea appears midline, appears displaced to left slightly. Final report pending. A/P: 66 year old male with PMH of HTN, DM, CKD, w/ nephrotic syndrome, monoclonal gammopathy, recurrent L pleural effusion, admitted with hypothermia, CHINTAN and altered mental status. Hypothermia/CHINTAN/AMS have resolved however patient then had subsequent respiratory failure requiring intubation thought to be 2' to persistent pleural effusions bilaterally vs PNA. Alert and awake. On High flow. Whiteout of left hemithorax. Repeat CXR later this afternoon. Monitor respiratory status. Neuro: Awake and alert. Following commands. On Keppra. Cardiovascular: HTN: On Hydralazine 50mg q8, Lopressor 5mg q6, Norvasc 10mg, has Hydralazine 10mg q 6 PRN, Lisinopril held. Respiratory: COPD/Bilateral pleural effusions now with white out of left chest on CXR. ?mucuous plugging/Atelectasis vs effusion,.Has 2 chest tubes in right side: anterior/posterior tubes. Will likely need CT of Chest, will d/w Surgical team and pulmonary. GI: Protonix for prophylaxis, swallow eval. Consider OG tube if does not pass swallow test. Renal/: -CKD stage III-IV: Lisinopril held, nephrology following for nephrotic syndrome Endocrine: - DM 2, blood glucose monitoring, sliding scale insulin, hypothyroidism: on synthroid. Dr. Mann is following. Heme: -Anemia of chronic disease: hg 8.9 ID: Cefepime, po diflucan. Trachasp culture: Yeast species (07/14/17) FEN: On D51/2 NS with 20 Meq KCL started 07/18/17, Hypokalemic: Potassium 10meq x 4, Currently NPO, follow up swallow eval , will consider OG tube if unable to take PO. Prophylaxis: DVT: SCDS, Heparin started 07/17/17 GI: Protonix Case discussed with Dr. Chu. Tita Magana PGY-2 CCU Objective - Vital Signs / Intake & Output Vital Signs (Last 4 hours): Vital Signs Temp Pulse Resp BP Pulse Ox 07/18/17 09:24 67 173/73 H 07/18/17 09:22 67 173/73 H 07/18/17 08:23 15 07/18/17 08:00 97.6 F 73 26 H 163/67 H 94 L 07/18/17 06:00 67 20 174/70 H 97 Intake and Output (Last 8hrs): Intake & Output 07/17/17 07/18/17 07/18/17 22:59 06:59 14:59 Intake Total 1850 800 Output Total 492 988 Balance 1358 -188 Weight 143 lb 11.2 oz 152 lb 8 oz Intake: IV 1550 600 Intake, Piggyback 300 200 Output: Chest Tube Drainage 92 488 Left Mid-Axillary Chest 0 Right Anterior Chest 6 28 Right Posterior Chest 86 460 Urine 400 500 Urethral (Salazar) 400 500 Other: # Bowel Movements 0 - Physical Exam Head: Positive for: Atraumatic, Normocephalic Pupils: Positive for: PERRL Conjunctiva: Positive for: Normal. Negative for: Icteric Mouth: Positive for: Moist Mucous Membranes. Negative for: Dry, Drooling Nose (External): Negative for: Lesions Neck: Positive for: Other (central line: left neck in place with dressing, biopatch still over line. clean and dry.) Respiratory/Chest: Positive for: Clear to Auscultation (right chest with good air entry), Decreased Breath Sounds (right lung base), Other (left chest: no breath sounds entire lung field, +dullness to percussion entire lung field.). Negative for: Respiratory Distress, Wheezes, Tachypneic Cardiovascular: Positive for: Regular Rate and Rhythm, Normal S1, S2. Negative for: Tachycardic, Bradycardic Abdomen: Positive for: Other (soft). Negative for: Tenderness, Distention Genitourinary Male: Positive for: Penile Swelling, Testicle Swelling Upper Extremity: Positive for: Edema (bilateral 2+ pitting edema; right > left) Lower Extremity: Positive for: Normal Inspection. Negative for: Edema, Tenderness Neurological: Positive for: Other (unable to speak clearly.) Skin: Positive for: Warm, Dry, Other (skin tear back of left hand) Psychiatric: Positive for: Depressed Mood - Medications Active Medications: Active Medications Generic Name Dose Route Start Last Admin Trade Name Freq PRN Reason Stop Dose Admin Albuterol/Ipratropium 3 ml 07/18/17 14:00 Duoneb 3 Mg/0.5 Mg (3 Ml) Ud INH RQ6 [facility] Aspirin 81 mg 07/14/17 09:00 07/18/17 09:23 Ecotrin PO Not Given DAILY [facility] Bacitracin 1 applic 07/11/17 09:00 07/18/17 09:23 Bacitracin Oint TOP 1 applic DAILY [facility] Administration Calcium Acetate 2,001 mg 07/05/17 08:30 07/14/17 12:26 Phoslo PO 2,001 mg 0830,1200,1830 [facility] Administration Dextrose 0 ml 06/22/17 22:36 Dextrose 50% Inj IV STAT PRN Hypoglycemia Protocol Protocol Dextrose 0 gm 06/22/17 22:36 Glutose 15 PO ONCE PRN Hypoglycemia Protocol Protocol Dextrose 50 ml 07/14/17 14:52 Dextrose 50% Inj IVP Q1H PRN Hypoglycemia Epoetin Roel 14,000 unit 07/07/17 09:00 07/16/17 09:50 Procrit SC 14,000 unit MWF [facility] Administration Fluconazole 200 mg 07/12/17 09:00 07/18/17 09:23 Diflucan PO Not Given DAILY [facility] Protocol Glucagon 0 mg 06/22/17 22:36 Glucagen Diagnostic Kit IM STAT PRN Hypoglycemia Protocol Protocol Heparin Sodium (Porcine) 5,000 units 07/17/17 21:00 07/18/17 09:23 Heparin SC 5,000 units Q12 [facility] Administration Protocol Hydralazine HCl 50 mg 07/13/17 12:48 07/18/17 09:22 Apresoline PO Not Given Q8 [facility] Hydralazine HCl 10 mg 07/17/17 13:03 07/17/17 17:15 Apresoline IV 10 mg Q4H PRN Administration SBP > 170 Hydromorphone HCl 0.5 mg 07/17/17 14:45 07/18/17 04:13 Dilaudid IVP 0.5 mg Q4H PRN Administration Pain, moderate (4-7) Levetiracetam 500 mg/ Sodium 105 mls @ 210 mls/hr 07/04/17 21:00 07/18/17 09: 24 Chloride IVPB 210 mls/hr Q12 [facility] Administration Cefepime HCl 1 gm/ Sodium 50 mls @ 50 mls/hr 07/13/17 09:00 07/17/17 08:40 Chloride IVPB 50 mls/hr DAILY [facility] Administration Protocol Potassium Chloride 10 meq/ 55 mls @ 55 mls/hr 07/18/17 07:00 07/18/17 09:23 Sodium Chloride IV 07/18/17 10:59 55 mls/hr Q1 [facility] Administration Potassium Chloride/Dextrose/Sod Cl 1,000 mls @ 125 mls/hr 07/18/17 09:15 Potassium Chl 20 Meq In D5-1/2ns IV 07/19/17 09:15 .Q8H [facility] Insulin Human Lispro 0 units 07/12/17 09:45 07/18/17 04:03 Humalog SC Not Given Q6H [facility] Protocol Levothyroxine Sodium 50 mcg 07/05/17 06:30 07/18/17 05:30 Synthroid PO Not Given DAILY@0630 [facility] Lisinopril 40 mg 07/15/17 09:00 07/15/17 08:55 Zestril PO 40 mg DAILY [facility] Administration Metoprolol Tartrate 5 mg 07/14/17 14:51 07/18/17 09:24 Lopressor IVP 5 mg Q6 [facility] Administration Pantoprazole Sodium 40 mg 07/08/17 21:00 07/18/17 09:25 Protonix Inj IVP 40 mg Q12 [facility] Administration Sodium Bicarbonate 1,300 mg 06/30/17 17:00 07/02/17 16:23 Sodium Bicarbonate Tab PO 1,300 mg Q8 [facility] Administration Thiamine HCl 100 mg 07/15/17 09:00 07/18/17 09:26 Vitamin B1 Tab PO Not Given DAILY [facility] - Patient Studies Lab Studies: Microbiology Studies 07/14/17 19:35 Gram Stain - Final Trachasp Sputum Culture - Final Yeast Species Lab Studies 07/18/17 07/18/17 07/18/17 Range/Units 05:30 05:30 05:30 WBC 6.0 (4.8-10.8) K/uL RBC 2.98 L (4.40-5.90) Mil/uL Hgb 8.9 L (12.0-18.0) g/dL Hct 27.9 L (35.0-51.0) % MCV 93.5 (80.0-94.0) fl MCH 29.8 (27.0-31.0) pg MCHC 31.9 L (33.0-37.0) g/dL RDW 17.8 H (11.5-14.5) % Plt Count 271 (130-400) K/uL PT 15.3 H (9.8-13.1) Seconds INR 1.4 H (0.9-1.2) APTT 34.2 (25.6-37.1) Seconds pCO2 (35-45) mm/Hg pO2 (80-100) mm/Hg HCO3 (21-28) mmol/L ABG pH (7.35-7.45) ABG Total CO2 (22-28) mmol/L ABG O2 Saturation (95-98) % ABG O2 Content (15-23) ML/dL ABG Base Excess (-2.0-3.0) mmol/L ABG Hemoglobin (11.7-17.4) g/dL ABG Carboxyhemoglobin (0.5-1.5) % POC ABG HHb (Measured) (0.0-5.0) % ABG Methemoglobin (0.0-3.0) % ABG O2 Capacity (16-24) mL/dL Andry Test A-a O2 Difference mm/Hg Hgb O2 Saturation (95.0-98.0) % Liter Flow Vent Mode FiO2 % Sodium 150 H (132-148) mmol/l Potassium 3.1 L (3.6-5.0) MMOL/L Chloride 116 H (98-107) mmol/L Carbon Dioxide 23 (22-30) mmol/L Anion Gap 14 (10-20) BUN 33 H (9-20) mg/dl Creatinine 2.1 H (0.8-1.5) mg/dl Est GFR ( Amer) 38 Est GFR (Non-Af Amer) 32 POC Glucose (mg/dL) (65-110) mg/dL Random Glucose 157 H (75-110) mg/dL Calcium 7.7 L (8.4-10.2) mg/dL Total Bilirubin 0.5 (0.2-1.3) mg/dl AST 24 (17-59) U/L ALT 34 (21-72) U/L Alkaline Phosphatase 130 H (38-126) U/L Total Protein 5.1 L (6.3-8.2) G/DL Albumin 2.4 L (3.5-5.0) g/dL Globulin 2.7 (2.2-3.9) gm/dL Albumin/Globulin Ratio 0.9 L (1.0-2.1) Brucella Agglutinins (()) Crossmatch 07/18/17 07/17/17 07/17/17 Range/Units 04:01 21:11 16:40 WBC (4.8-10.8) K/uL RBC (4.40-5.90) Mil/uL Hgb (12.0-18.0) g/dL Hct (35.0-51.0) % MCV (80.0-94.0) fl MCH (27.0-31.0) pg MCHC (33.0-37.0) g/dL RDW (11.5-14.5) % Plt Count (130-400) K/uL PT (9.8-13.1) Seconds INR (0.9-1.2) APTT (25.6-37.1) Seconds pCO2 (35-45) mm/Hg pO2 (80-100) mm/Hg HCO3 (21-28) mmol/L ABG pH (7.35-7.45) ABG Total CO2 (22-28) mmol/L ABG O2 Saturation (95-98) % ABG O2 Content (15-23) ML/dL ABG Base Excess (-2.0-3.0) mmol/L ABG Hemoglobin (11.7-17.4) g/dL ABG Carboxyhemoglobin (0.5-1.5) % POC ABG HHb (Measured) (0.0-5.0) % ABG Methemoglobin (0.0-3.0) % ABG O2 Capacity (16-24) mL/dL Andry Test A-a O2 Difference mm/Hg Hgb O2 Saturation (95.0-98.0) % Liter Flow Vent Mode FiO2 % Sodium (132-148) mmol/l Potassium (3.6-5.0) MMOL/L Chloride (98-107) mmol/L Carbon Dioxide (22-30) mmol/L Anion Gap (10-20) BUN (9-20) mg/dl Creatinine (0.8-1.5) mg/dl Est GFR ( Amer) Est GFR (Non-Af Amer) POC Glucose (mg/dL) 202 H 140 H 145 H (65-110) mg/dL Random Glucose (75-110) mg/dL Calcium (8.4-10.2) mg/dL Total Bilirubin (0.2-1.3) mg/dl AST (17-59) U/L ALT (21-72) U/L Alkaline Phosphatase (38-126) U/L Total Protein (6.3-8.2) G/DL Albumin (3.5-5.0) g/dL Globulin (2.2-3.9) gm/dL Albumin/Globulin Ratio (1.0-2.1) Brucella Agglutinins (()) Crossmatch 07/17/17 07/17/17 07/15/17 Range/Units 16:20 11:08 13:10 WBC (4.8-10.8) K/uL RBC (4.40-5.90) Mil/uL Hgb (12.0-18.0) g/dL Hct (35.0-51.0) % MCV (80.0-94.0) fl MCH (27.0-31.0) pg MCHC (33.0-37.0) g/dL RDW (11.5-14.5) % Plt Count (130-400) K/uL PT (9.8-13.1) Seconds INR (0.9-1.2) APTT (25.6-37.1) Seconds pCO2 39 (35-45) mm/Hg pO2 221 H (80-100) mm/Hg HCO3 23.5 (21-28) mmol/L ABG pH 7.38 (7.35-7.45) ABG Total CO2 24.3 (22-28) mmol/L ABG O2 Saturation 99.7 H (95-98) % ABG O2 Content 15.1 (15-23) ML/dL ABG Base Excess -1.8 (-2.0-3.0) mmol/L ABG Hemoglobin 10.7 L (11.7-17.4) g/dL ABG Carboxyhemoglobin 1.4 (0.5-1.5) % POC ABG HHb (Measured) 0.3 (0.0-5.0) % ABG Methemoglobin 1.5 (0.0-3.0) % ABG O2 Capacity 15.1 L (16-24) mL/dL Andry Test Yes A-a O2 Difference 443.0 mm/Hg Hgb O2 Saturation 96.7 (95.0-98.0) % Liter Flow 40 Vent Mode High flow FiO2 100.0 % Sodium (132-148) mmol/l Potassium (3.6-5.0) MMOL/L Chloride (98-107) mmol/L Carbon Dioxide (22-30) mmol/L Anion Gap (10-20) BUN (9-20) mg/dl Creatinine (0.8-1.5) mg/dl Est GFR ( Amer) Est GFR (Non-Af Amer) POC Glucose (mg/dL) 178 H (65-110) mg/dL Random Glucose (75-110) mg/dL Calcium (8.4-10.2) mg/dL Total Bilirubin (0.2-1.3) mg/dl AST (17-59) U/L ALT (21-72) U/L Alkaline Phosphatase (38-126) U/L Total Protein (6.3-8.2) G/DL Albumin (3.5-5.0) g/dL Globulin (2.2-3.9) gm/dL Albumin/Globulin Ratio (1.0-2.1) Brucella Agglutinins (()) Crossmatch See Detail 07/14/17 Range/Units 04:20 WBC (4.8-10.8) K/uL RBC (4.40-5.90) Mil/uL Hgb (12.0-18.0) g/dL Hct (35.0-51.0) % MCV (80.0-94.0) fl MCH (27.0-31.0) pg MCHC (33.0-37.0) g/dL RDW (11.5-14.5) % Plt Count (130-400) K/uL PT (9.8-13.1) Seconds INR (0.9-1.2) APTT (25.6-37.1) Seconds pCO2 (35-45) mm/Hg pO2 (80-100) mm/Hg HCO3 (21-28) mmol/L ABG pH (7.35-7.45) ABG Total CO2 (22-28) mmol/L ABG O2 Saturation (95-98) % ABG O2 Content (15-23) ML/dL ABG Base Excess (-2.0-3.0) mmol/L ABG Hemoglobin (11.7-17.4) g/dL ABG Carboxyhemoglobin (0.5-1.5) % POC ABG HHb (Measured) (0.0-5.0) % ABG Methemoglobin (0.0-3.0) % ABG O2 Capacity (16-24) mL/dL Andry Test A-a O2 Difference mm/Hg Hgb O2 Saturation (95.0-98.0) % Liter Flow Vent Mode FiO2 % Sodium (132-148) mmol/l Potassium (3.6-5.0) MMOL/L Chloride (98-107) mmol/L Carbon Dioxide (22-30) mmol/L Anion Gap (10-20) BUN (9-20) mg/dl Creatinine (0.8-1.5) mg/dl Est GFR ( Amer) Est GFR (Non-Af Amer) POC Glucose (mg/dL) (65-110) mg/dL Random Glucose (75-110) mg/dL Calcium (8.4-10.2) mg/dL Total Bilirubin (0.2-1.3) mg/dl AST (17-59) U/L ALT (21-72) U/L Alkaline Phosphatase (38-126) U/L Total Protein (6.3-8.2) G/DL Albumin (3.5-5.0) g/dL Globulin (2.2-3.9) gm/dL Albumin/Globulin Ratio (1.0-2.1) Brucella Agglutinins (()) Crossmatch Laboratory Results - last 24 hr 07/14/17 07/15/17 07/17/17 04:20 13:10 11:08 WBC RBC Hgb Hct MCV MCH MCHC RDW Plt Count PT INR APTT pCO2 pO2 HCO3 ABG pH ABG Total CO2 ABG O2 Saturation ABG O2 Content ABG Base Excess ABG Hemoglobin ABG Carboxyhemoglobin POC ABG HHb (Measured) ABG Methemoglobin ABG O2 Capacity Andry Test A-a O2 Difference Hgb O2 Saturation Liter Flow Vent Mode FiO2 Sodium Potassium Chloride Carbon Dioxide Anion Gap BUN Creatinine Est GFR ( Amer) Est GFR (Non-Af Amer) POC Glucose (mg/dL) 178 H Random Glucose Calcium Total Bilirubin AST ALT Alkaline Phosphatase Total Protein Albumin Globulin Albumin/Globulin Ratio Brucella Agglutinins Crossmatch See Detail 07/17/17 07/17/17 07/17/17 16:20 16:40 21:11 WBC RBC Hgb Hct MCV MCH MCHC RDW Plt Count PT INR APTT pCO2 39 pO2 221 H HCO3 23.5 ABG pH 7.38 ABG Total CO2 24.3 ABG O2 Saturation 99.7 H ABG O2 Content 15.1 ABG Base Excess -1.8 ABG Hemoglobin 10.7 L ABG Carboxyhemoglobin 1.4 POC ABG HHb (Measured) 0.3 ABG Methemoglobin 1.5 ABG O2 Capacity 15.1 L Andry Test Yes A-a O2 Difference 443.0 Hgb O2 Saturation 96.7 Liter Flow 40 Vent Mode High flow FiO2 100.0 Sodium Potassium Chloride Carbon Dioxide Anion Gap BUN Creatinine Est GFR ( Amer) Est GFR (Non-Af Amer) POC Glucose (mg/dL) 145 H 140 H Random Glucose Calcium Total Bilirubin AST ALT Alkaline Phosphatase Total Protein Albumin Globulin Albumin/Globulin Ratio Brucella Agglutinins Crossmatch 07/18/17 07/18/17 07/18/17 04:01 05:30 05:30 WBC 6.0 RBC 2.98 L Hgb 8.9 L Hct 27.9 L MCV 93.5 MCH 29.8 MCHC 31.9 L RDW 17.8 H Plt Count 271 PT 15.3 H INR 1.4 H APTT 34.2 pCO2 pO2 HCO3 ABG pH ABG Total CO2 ABG O2 Saturation ABG O2 Content ABG Base Excess ABG Hemoglobin ABG Carboxyhemoglobin POC ABG HHb (Measured) ABG Methemoglobin ABG O2 Capacity Andry Test A-a O2 Difference Hgb O2 Saturation Liter Flow Vent Mode FiO2 Sodium Potassium Chloride Carbon Dioxide Anion Gap BUN Creatinine Est GFR ( Amer) Est GFR (Non-Af Amer) POC Glucose (mg/dL) 202 H Random Glucose Calcium Total Bilirubin AST ALT Alkaline Phosphatase Total Protein Albumin Globulin Albumin/Globulin Ratio Brucella Agglutinins Crossmatch 07/18/17 05:30 WBC RBC Hgb Hct MCV MCH MCHC RDW Plt Count PT INR APTT pCO2 pO2 HCO3 ABG pH ABG Total CO2 ABG O2 Saturation ABG O2 Content ABG Base Excess ABG Hemoglobin ABG Carboxyhemoglobin POC ABG HHb (Measured) ABG Methemoglobin ABG O2 Capacity Andry Test A-a O2 Difference Hgb O2 Saturation Liter Flow Vent Mode FiO2 Sodium 150 H Potassium 3.1 L Chloride 116 H Carbon Dioxide 23 Anion Gap 14 BUN 33 H Creatinine 2.1 H Est GFR ( Amer) 38 Est GFR (Non-Af Amer) 32 POC Glucose (mg/dL) Random Glucose 157 H Calcium 7.7 L Total Bilirubin 0.5 AST 24 ALT 34 Alkaline Phosphatase 130 H Total Protein 5.1 L Albumin 2.4 L Globulin 2.7 Albumin/Globulin Ratio 0.9 L Brucella Agglutinins Crossmatch Fingerstick Blood Sugar Results: 202 Critical Care Progress Note - Nutrition Nutrition: Nutrition Category Date Time Status NPO Diet [DIET] Diets 07/15/17 Dinner Active <Ervin Mata - Last Filed: 07/18/17 17:44> CCU Subjective - Physician Review Subjective (Free Text): Attestation: Patient seen and examined at the bedside with Resident Dr. Tita Magana; and I agree with her outline of plans and management documented above as discussed on AM rounds reflecting my review of all applicable clinical data, and participation in the care of the patient throughout the day in ICU; July 18, 2017.
--- NOTE | 2017-07-18 10:49 | CP.PCM.PN ---
Subjective - Date & Time of Evaluation Date of Evaluation: 07/18/17 Time of Evaluation: 10:46 - Subjective Subjective: Mr. Durand was seen and examined at the bedside in ICU. He is alert with no verbal response. He communicates using non-verbal cues such as nodding or shaking his head. He is extubated yesterday, but with right sided chest tubes. He is able to follow simple commands such as turning his head side to side, raising all his extremities. He remains on SCD's. There was no untoward events overnight. Objective - Vital Signs/Intake and Output Vital Signs (last 24 hours): Temp Pulse Resp BP Pulse Ox 97.6 F 67 15 173/73 H 94 L 07/18/17 08:00 07/18/17 09:24 07/18/17 08:23 07/18/17 09:24 07/18/17 08:00 Intake and Output: 07/18/17 07/18/17 06:59 18:59 Intake Total 1100 250 Output Total 988 Balance 112 250 - Medications Medications: Current Medications Albuterol/Ipratropium (Duoneb 3 Mg/0.5 Mg (3 Ml) Ud) 3 ml INH RQ6 [facility] Aspirin (Ecotrin) 81 mg PO DAILY [facility] Last Admin: 07/18/17 09:23 Dose: Not Given Bacitracin (Bacitracin Oint) 1 applic TOP DAILY [facility] Last Admin: 07/18/17 09:23 Dose: 1 applic Calcium Acetate (Phoslo) 2,001 mg PO 0830,1200,1830 [facility] Last Admin: 07/14/17 12:26 Dose: 2,001 mg Dextrose (Dextrose 50% Inj) 0 ml IV STAT PRN; Protocol PRN Reason: Hypoglycemia Protocol Dextrose (Glutose 15) 0 gm PO ONCE PRN; Protocol PRN Reason: Hypoglycemia Protocol Dextrose (Dextrose 50% Inj) 50 ml IVP Q1H PRN PRN Reason: Hypoglycemia Epoetin Roel (Procrit) 14,000 unit SC MWF [facility] Last Admin: 07/16/17 09:50 Dose: 14,000 unit Fluconazole (Diflucan) 200 mg PO DAILY [facility] PRN Reason: Protocol Last Admin: 07/18/17 09:23 Dose: Not Given Glucagon (Glucagen Diagnostic Kit) 0 mg IM STAT PRN; Protocol PRN Reason: Hypoglycemia Protocol Heparin Sodium (Porcine) (Heparin) 5,000 units SC Q12 [facility] PRN Reason: Protocol Last Admin: 07/18/17 09:23 Dose: 5,000 units Hydralazine HCl (Apresoline) 50 mg PO Q8 [facility] Last Admin: 07/18/17 09:22 Dose: Not Given Hydralazine HCl (Apresoline) 10 mg IV Q4H PRN PRN Reason: SBP > 170 Last Admin: 07/17/17 17:15 Dose: 10 mg Hydromorphone HCl (Dilaudid) 0.5 mg IVP Q4H PRN PRN Reason: Pain, moderate (4-7) Last Admin: 07/18/17 04:13 Dose: 0.5 mg Levetiracetam 500 mg/ Sodium (Chloride) 105 mls @ 210 mls/hr IVPB Q12 [facility] Last Admin: 07/18/17 09:24 Dose: 210 mls/hr Cefepime HCl 1 gm/ Sodium (Chloride) 50 mls @ 50 mls/hr IVPB DAILY [facility] PRN Reason: Protocol Last Admin: 07/17/17 08:40 Dose: 50 mls/hr Potassium Chloride 10 meq/ (Sodium Chloride) 55 mls @ 55 mls/hr IV Q1 [facility] Stop: 07/18/17 10:59 Last Admin: 07/18/17 10:31 Dose: 55 mls/hr Potassium Chloride/Dextrose/Sod Cl (Potassium Chl 20 Meq In D5-1/2ns) 1,000 mls @ 125 mls/hr IV .Q8H [facility] Stop: 07/19/17 09:15 Insulin Human Lispro (Humalog) 0 units SC Q6H [facility] PRN Reason: Protocol Last Admin: 07/18/17 04:03 Dose: Not Given Levothyroxine Sodium (Synthroid) 50 mcg PO DAILY@0630 [facility] Last Admin: 07/18/17 05:30 Dose: Not Given Lisinopril (Zestril) 40 mg PO DAILY [facility] Last Admin: 07/15/17 08:55 Dose: 40 mg Metoprolol Tartrate (Lopressor) 5 mg IVP Q6 [facility] Last Admin: 07/18/17 09:24 Dose: 5 mg Pantoprazole Sodium (Protonix Inj) 40 mg IVP Q12 [facility] Last Admin: 07/18/17 09:25 Dose: 40 mg Sodium Bicarbonate (Sodium Bicarbonate Tab) 1,300 mg PO Q8 [facility] Last Admin: 07/02/17 16:23 Dose: 1,300 mg Thiamine HCl (Vitamin B1 Tab) 100 mg PO DAILY [facility] Last Admin: 07/18/17 09:26 Dose: Not Given - Labs Labs: 07/18/17 05:30 07/18/17 05:30 PT 15.3 Seconds (9.8-13.1) H 07/18/17 05:30 INR 1.4 (0.9-1.2) H 07/18/17 05:30 APTT 34.2 Seconds (25.6-37.1) 07/18/17 05:30 - Constitutional Appears: No Acute Distress - Head Exam Head Exam: NORMAL INSPECTION - Neurological Exam Neurological Exam: Alert, Awake Neuro motor strength exam: Left Upper Extremity: 3, Right Upper Extremity: 3, Left Lower Extremity: 2/1, Right Lower Extremity: 2/1 Additional comments: Neurological unchanged from previous examination. Assessment and Plan (1) Altered mental status Assessment & Plan: Case discussed with Dr. Das, continue all current medical regimen. There is no new recommendations from neurology. Status: Acute
[2017-07-18] MEDS: Potassium Ch 20mEq in D5-1/2NS 1,000 ML IV SCH (11:00)
--- NOTE | 2017-07-18 11:12 | RAD ---
PROCEDURE: CHEST RADIOGRAPH, 1 VIEW HISTORY: Pleural effusion COMPARISON: 07/17/2017 FINDINGS: LUNGS: Complete opacification of left scott thorax new since prior examination. Likely large left pleural effusion. No right-sided pulmonary infiltrate. No significant midline shift. PLEURA: Two right apical chest tubes unchanged in position. CARDIOVASCULAR: No pneumothorax. Heart size cannot be evaluated due to obscuring by left hemithoracic opacity. Left subclavian central venous catheter. OSSEOUS STRUCTURES: No significant abnormalities. VISUALIZED UPPER ABDOMEN: Normal. OTHER FINDINGS: None. IMPRESSION: Complete opacification of left scott thorax, likely due to new large left pleural effusion. Two right apical chest tubes unchanged. No pneumothorax.
--- NOTE | 2017-07-18 12:59 | CT ---
PROCEDURE: CT Chest without contrast HISTORY: Right lung eval COMPARISON: CT chest dated 07/15/2017. TECHNIQUE: Contiguous axial images were obtained through the chest without intravenous contrast enhancement. Sagittal and coronal reconstructions were performed. Radiation dose (DLP): 960.8 mGy-cm. This CT exam was performed using one or more of the following dose reduction techniques: Automated exposure control, adjustment of the mA and/or kV according to patient size, and/or use of iterative reconstruction technique. FINDINGS: LUNGS: Biapical bullous change. Evaluation for nodules limited due to adjacent lung pathology, but multiple right lung nodules measuring up to 7 millimeter identified. Right lower lobe atelectatic/consolidative changes, increased. Left lower lobe and subsegmental left upper lobe atelectatic/consolidative changes, increased. MEDIASTINUM: Unchanged. PLEURA: Increase in size of loculated left pleural effusion. Trace residual right pleural effusion. Trace residual right pneumothorax. BONES: Unchanged. UPPER ABDOMEN: Unchanged. OTHER FINDINGS: Debris in right bronchus intermedius. Interval removal of previous intraparenchymal right chest tube. New 2 right large bore chest tubes. IMPRESSION: Removal of right intraparenchymal chest tube. Two new right-sided large bore chest tubes. Increase in size of loculated left pleural effusion. Trace residual right pneumothorax.
--- NOTE | 2017-07-18 13:03 | CP.PCM.CON ---
History of Present Illness - History of Present Illness History of Present Illness: consult requested to evaluate capacity to make decision for medical procedures pt is 66 year old male with PMH of HTN, DM, CKD, w/ nephrotic syndrome, monoclonal gammopathy, recurrent L pleural effusion, admitted with hypothermia, I and altered mental status. patient then had subsequent respiratory failure requiring intubation , pt currently is extubated evaluation done throught translation pt seen in bed very limited movement speech is soft and very underproductive pt was able only to say his name, confused, oriented to person only, speech was irrelavent and thought process not goal directed, with responses not relevant to questions asked Past Patient History - Infectious Disease Hx of Infectious Diseases: None - Tetanus Immunizations Tetanus Immunization: Unknown - Past Medical History & Family History Past Medical History?: Yes - Past Social History Alcohol: None Drugs: Denies - CARDIAC Hx Cardiac Disorders: Yes Hx Congestive Heart Failure: Yes Hx Hypercholesterolemia: No Hx Hypertension: Yes - PULMONARY Hx Chronic Obstructive Pulmonary Disease (COPD): No - NEUROLOGICAL HX Cerebrovascular Accident: No - HEENT Hx HEENT Problems: No - RENAL Hx Renal Failure: Yes - ENDOCRINE/METABOLIC Hx Diabetes Mellitus Type 1: No Hx Diabetes Mellitus Type 2: Yes Hx Hypothyroidism: No - HEMATOLOGICAL/ONCOLOGICAL Hx Anemia: Yes Hx Human Immunodeficiency Virus (HIV): No Hx Sickle Cell Disease: No - INTEGUMENTARY Hx Dermatological Problems: No - MUSCULOSKELETAL/RHEUMATOLOGICAL Hx Arthritis: No Hx Rheumatoid Arthritis: No - GASTROINTESTINAL Hx Crohn's Disease: No Hx Diverticulitis: No Hx Gall Bladder Disease: No Hx Gastritis: No Hx Pancreatitis: No - GENITOURINARY/GYNECOLOGICAL Hx Genitourinary Disorders: No - PSYCHIATRIC Hx Anxiety: Yes Hx Bipolar Disorder: Yes Hx Depression: Yes Hx Paranoia: No Hx Post Traumatic Stress Disorder: No Hx Schizophrenia: No - SURGICAL HISTORY Hx Surgeries: No - ANESTHESIA Hx Anesthesia: Yes Hx Anesthesia Reactions: No Hx Malignant Hyperthermia: No Meds Allergies/Adverse Reactions: Allergies Allergy/AdvReac Type Severity Reaction Status Date / Time No Known Allergies Allergy Verified 05/21/17 16:02 - Medications Medications: Current Medications Albuterol/Ipratropium (Duoneb 3 Mg/0.5 Mg (3 Ml) Ud) 3 ml INH RQ6 [facility] Aspirin (Ecotrin) 81 mg PO DAILY [facility] Last Admin: 07/18/17 09:23 Dose: Not Given Bacitracin (Bacitracin Oint) 1 applic TOP DAILY [facility] Last Admin: 07/18/17 09:23 Dose: 1 applic Calcium Acetate (Phoslo) 2,001 mg PO 0830,1200,1830 [facility] Last Admin: 07/14/17 12:26 Dose: 2,001 mg Dextrose (Dextrose 50% Inj) 0 ml IV STAT PRN; Protocol PRN Reason: Hypoglycemia Protocol Dextrose (Glutose 15) 0 gm PO ONCE PRN; Protocol PRN Reason: Hypoglycemia Protocol Dextrose (Dextrose 50% Inj) 50 ml IVP Q1H PRN PRN Reason: Hypoglycemia Epoetin Roel (Procrit) 14,000 unit SC MWF [facility] Last Admin: 07/16/17 09:50 Dose: 14,000 unit Fluconazole (Diflucan) 200 mg PO DAILY [facility] PRN Reason: Protocol Last Admin: 07/18/17 09:23 Dose: Not Given Glucagon (Glucagen Diagnostic Kit) 0 mg IM STAT PRN; Protocol PRN Reason: Hypoglycemia Protocol Heparin Sodium (Porcine) (Heparin) 5,000 units SC Q12 [facility] PRN Reason: Protocol Last Admin: 07/18/17 09:23 Dose: 5,000 units Hydralazine HCl (Apresoline) 50 mg PO Q8 [facility] Last Admin: 07/18/17 09:22 Dose: Not Given Hydralazine HCl (Apresoline) 10 mg IV Q4H [facility] Hydromorphone HCl (Dilaudid) 0.5 mg IVP Q4H PRN PRN Reason: Pain, moderate (4-7) Last Admin: 07/18/17 04:13 Dose: 0.5 mg Levetiracetam 500 mg/ Sodium (Chloride) 105 mls @ 210 mls/hr IVPB Q12 [facility] Last Admin: 07/18/17 09:24 Dose: 210 mls/hr Cefepime HCl 1 gm/ Sodium (Chloride) 50 mls @ 50 mls/hr IVPB DAILY [facility] PRN Reason: Protocol Last Admin: 07/17/17 08:40 Dose: 50 mls/hr Potassium Chloride/Dextrose/Sod Cl (Potassium Chl 20 Meq In D5-1/2ns) 1,000 mls @ 125 mls/hr IV .Q8H [facility] Stop: 07/19/17 09:15 Last Admin: 07/18/17 11:00 Dose: 125 mls/hr Insulin Human Lispro (Humalog) 0 units SC Q6H [facility] PRN Reason: Protocol Last Admin: 07/18/17 11:00 Dose: Not Given Levothyroxine Sodium (Synthroid) 50 mcg PO DAILY@0630 [facility] Last Admin: 07/18/17 05:30 Dose: Not Given Lisinopril (Zestril) 40 mg PO DAILY [facility] Last Admin: 07/15/17 08:55 Dose: 40 mg Metoprolol Tartrate (Lopressor) 5 mg IVP Q6 [facility] Last Admin: 07/18/17 09:24 Dose: 5 mg Pantoprazole Sodium (Protonix Inj) 40 mg IVP Q12 [facility] Last Admin: 07/18/17 09:25 Dose: 40 mg Sodium Bicarbonate (Sodium Bicarbonate Tab) 1,300 mg PO Q8 [facility] Last Admin: 07/02/17 16:23 Dose: 1,300 mg Thiamine HCl (Vitamin B1 Tab) 100 mg PO DAILY [facility] Last Admin: 07/18/17 09:26 Dose: Not Given Physical Exam - Psychiatric Exam Additional comments: pt in bed dressed in hospital gown, speech underproductive, oriented to person only when asked about mood, pt unable to answer pt extremely confused , unable to comprehend or answer any questions asked about his understanding to risks or benifits of any medical procedure as intubation Results - Vital Signs Recent Vital Signs: Last Vital Signs Temp 97.4 F L 07/18/17 12:00 Pulse 73 07/18/17 12:18 Resp 21 07/18/17 12:00 BP 188/94 H 07/18/17 12:18 Pulse Ox 100 07/18/17 12:00 - Labs Result Diagrams: 07/18/17 05:30 07/18/17 05:30 Labs: Laboratory Results - last 24 hr 07/14/17 07/15/17 07/17/17 04:20 13:10 16:20 WBC RBC Hgb Hct MCV MCH MCHC RDW Plt Count PT INR APTT pCO2 39 pO2 221 H HCO3 23.5 ABG pH 7.38 ABG Total CO2 24.3 ABG O2 Saturation 99.7 H ABG O2 Content 15.1 ABG Base Excess -1.8 ABG Hemoglobin 10.7 L ABG Carboxyhemoglobin 1.4 POC ABG HHb (Measured) 0.3 ABG Methemoglobin 1.5 ABG O2 Capacity 15.1 L Andry Test Yes A-a O2 Difference 443.0 Hgb O2 Saturation 96.7 Liter Flow 40 Vent Mode High flow FiO2 100.0 Sodium Potassium Chloride Carbon Dioxide Anion Gap BUN Creatinine Est GFR ( Amer) Est GFR (Non-Af Amer) POC Glucose (mg/dL) Random Glucose Calcium Total Bilirubin AST ALT Alkaline Phosphatase Total Protein Albumin Globulin Albumin/Globulin Ratio Brucella Agglutinins Crossmatch See Detail 07/17/17 07/17/17 07/18/17 16:40 21:11 04:01 WBC RBC Hgb Hct MCV MCH MCHC RDW Plt Count PT INR APTT pCO2 pO2 HCO3 ABG pH ABG Total CO2 ABG O2 Saturation ABG O2 Content ABG Base Excess ABG Hemoglobin ABG Carboxyhemoglobin POC ABG HHb (Measured) ABG Methemoglobin ABG O2 Capacity Andry Test A-a O2 Difference Hgb O2 Saturation Liter Flow Vent Mode FiO2 Sodium Potassium Chloride Carbon Dioxide Anion Gap BUN Creatinine Est GFR ( Amer) Est GFR (Non-Af Amer) POC Glucose (mg/dL) 145 H 140 H 202 H Random Glucose Calcium Total Bilirubin AST ALT Alkaline Phosphatase Total Protein Albumin Globulin Albumin/Globulin Ratio Brucella Agglutinins Crossmatch 07/18/17 07/18/17 07/18/17 05:30 05:30 05:30 WBC 6.0 RBC 2.98 L Hgb 8.9 L Hct 27.9 L MCV 93.5 MCH 29.8 MCHC 31.9 L RDW 17.8 H Plt Count 271 PT 15.3 H INR 1.4 H APTT 34.2 pCO2 pO2 HCO3 ABG pH ABG Total CO2 ABG O2 Saturation ABG O2 Content ABG Base Excess ABG Hemoglobin ABG Carboxyhemoglobin POC ABG HHb (Measured) ABG Methemoglobin ABG O2 Capacity Andry Test A-a O2 Difference Hgb O2 Saturation Liter Flow Vent Mode FiO2 Sodium 150 H Potassium 3.1 L Chloride 116 H Carbon Dioxide 23 Anion Gap 14 BUN 33 H Creatinine 2.1 H Est GFR ( Amer) 38 Est GFR (Non-Af Amer) 32 POC Glucose (mg/dL) Random Glucose 157 H Calcium 7.7 L Total Bilirubin 0.5 AST 24 ALT 34 Alkaline Phosphatase 130 H Total Protein 5.1 L Albumin 2.4 L Globulin 2.7 Albumin/Globulin Ratio 0.9 L Brucella Agglutinins Crossmatch 07/18/17 11:18 WBC RBC Hgb Hct MCV MCH MCHC RDW Plt Count PT INR APTT pCO2 pO2 HCO3 ABG pH ABG Total CO2 ABG O2 Saturation ABG O2 Content ABG Base Excess ABG Hemoglobin ABG Carboxyhemoglobin POC ABG HHb (Measured) ABG Methemoglobin ABG O2 Capacity Andry Test A-a O2 Difference Hgb O2 Saturation Liter Flow Vent Mode FiO2 Sodium Potassium Chloride Carbon Dioxide Anion Gap BUN Creatinine Est GFR ( Amer) Est GFR (Non-Af Amer) POC Glucose (mg/dL) 129 H Random Glucose Calcium Total Bilirubin AST ALT Alkaline Phosphatase Total Protein Albumin Globulin Albumin/Globulin Ratio Brucella Agglutinins Crossmatch Assessment & Plan - Assessment and Plan (Free Text) Assessment: dementia rule out delirium due to respiratory failure Plan: pt at current mental status confused oriented to person only, unable to assess mental status or to asses capacity to make decision
--- NOTE | 2017-07-18 13:15 | CP.PCM.PN ---
Subjective - Date & Time of Evaluation Date of Evaluation: 07/18/17 Time of Evaluation: 13:09 - Subjective Subjective: Pt s/e. vss. O2 sat-satisfactory. Reviewed cxr and ct chest . The mucus plug must have been removed from the time of cxr and ct chest as ct chest shows essentially similar aeration as previous imaging studies. No surgical interventions. d/w Rhys Mata and Cadence. Objective - Vital Signs/Intake and Output Vital Signs (last 24 hours): Temp Pulse Resp BP Pulse Ox 97.4 F L 73 21 188/94 H 100 07/18/17 12:00 07/18/17 12:18 07/18/17 12:00 07/18/17 12:18 07/18/17 12:00 Intake and Output: 07/18/17 07/18/17 06:59 18:59 Intake Total 1100 1050 Output Total 988 Balance 112 1050 - Medications Medications: Current Medications Albuterol/Ipratropium (Duoneb 3 Mg/0.5 Mg (3 Ml) Ud) 3 ml INH RQ6 [facility] Aspirin (Ecotrin) 81 mg PO DAILY [facility] Last Admin: 07/18/17 09:23 Dose: Not Given Bacitracin (Bacitracin Oint) 1 applic TOP DAILY [facility] Last Admin: 07/18/17 09:23 Dose: 1 applic Calcium Acetate (Phoslo) 2,001 mg PO 0830,1200,1830 [facility] Last Admin: 07/14/17 12:26 Dose: 2,001 mg Dextrose (Dextrose 50% Inj) 0 ml IV STAT PRN; Protocol PRN Reason: Hypoglycemia Protocol Dextrose (Glutose 15) 0 gm PO ONCE PRN; Protocol PRN Reason: Hypoglycemia Protocol Dextrose (Dextrose 50% Inj) 50 ml IVP Q1H PRN PRN Reason: Hypoglycemia Epoetin Roel (Procrit) 14,000 unit SC MWF [facility] Last Admin: 07/16/17 09:50 Dose: 14,000 unit Fluconazole (Diflucan) 200 mg PO DAILY [facility] PRN Reason: Protocol Last Admin: 07/18/17 09:23 Dose: Not Given Glucagon (Glucagen Diagnostic Kit) 0 mg IM STAT PRN; Protocol PRN Reason: Hypoglycemia Protocol Heparin Sodium (Porcine) (Heparin) 5,000 units SC Q12 [facility] PRN Reason: Protocol Last Admin: 07/18/17 09:23 Dose: 5,000 units Hydralazine HCl (Apresoline) 50 mg PO Q8 [facility] Last Admin: 07/18/17 09:22 Dose: Not Given Hydralazine HCl (Apresoline) 10 mg IV Q4H [facility] Hydromorphone HCl (Dilaudid) 0.5 mg IVP Q4H PRN PRN Reason: Pain, moderate (4-7) Last Admin: 07/18/17 04:13 Dose: 0.5 mg Levetiracetam 500 mg/ Sodium (Chloride) 105 mls @ 210 mls/hr IVPB Q12 [facility] Last Admin: 07/18/17 09:24 Dose: 210 mls/hr Cefepime HCl 1 gm/ Sodium (Chloride) 50 mls @ 50 mls/hr IVPB DAILY [facility] PRN Reason: Protocol Last Admin: 07/17/17 08:40 Dose: 50 mls/hr Potassium Chloride/Dextrose/Sod Cl (Potassium Chl 20 Meq In D5-1/2ns) 1,000 mls @ 125 mls/hr IV .Q8H [facility] Stop: 07/19/17 09:15 Last Admin: 07/18/17 11:00 Dose: 125 mls/hr Insulin Human Lispro (Humalog) 0 units SC Q6H [facility] PRN Reason: Protocol Last Admin: 07/18/17 11:00 Dose: Not Given Levothyroxine Sodium (Synthroid) 50 mcg PO DAILY@0630 [facility] Last Admin: 07/18/17 05:30 Dose: Not Given Lisinopril (Zestril) 40 mg PO DAILY [facility] Last Admin: 07/15/17 08:55 Dose: 40 mg Metoprolol Tartrate (Lopressor) 5 mg IVP Q6 [facility] Last Admin: 07/18/17 09:24 Dose: 5 mg Pantoprazole Sodium (Protonix Inj) 40 mg IVP Q12 [facility] Last Admin: 07/18/17 09:25 Dose: 40 mg Sodium Bicarbonate (Sodium Bicarbonate Tab) 1,300 mg PO Q8 [facility] Last Admin: 07/02/17 16:23 Dose: 1,300 mg Thiamine HCl (Vitamin B1 Tab) 100 mg PO DAILY [facility] Last Admin: 07/18/17 09:26 Dose: Not Given - Labs Labs: 07/18/17 05:30 07/18/17 05:30 PT 15.3 Seconds (9.8-13.1) H 07/18/17 05:30 INR 1.4 (0.9-1.2) H 07/18/17 05:30 APTT 34.2 Seconds (25.6-37.1) 07/18/17 05:30
[2017-07-18] MEDS: Albuterol-Ipratrop 3 mg / 0.5 (3 ml) UD INH SCH ×2 (13:28→19:22)
--- NOTE | 2017-07-18 13:37 | CP.PCM.PN ---
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 REPEAT CXR IN AM Objective - Vital Signs/Intake and Output Vital Signs (last 24 hours): Temp Pulse Resp BP Pulse Ox 97.4 F L 73 21 188/94 H 100 07/18/17 12:00 07/18/17 12:18 07/18/17 12:00 07/18/17 12:18 07/18/17 12:00 Intake and Output: 07/18/17 07/18/17 06:59 18:59 Intake Total 1100 1050 Output Total 988 Balance 112 1050 - Medications Medications: Current Medications Albuterol/Ipratropium (Duoneb 3 Mg/0.5 Mg (3 Ml) Ud) 3 ml INH RQ6 [facility] Last Admin: 07/18/17 13:28 Dose: 3 ml Aspirin (Ecotrin) 81 mg PO DAILY [facility] Last Admin: 07/18/17 09:23 Dose: Not Given Bacitracin (Bacitracin Oint) 1 applic TOP DAILY [facility] Last Admin: 07/18/17 09:23 Dose: 1 applic Calcium Acetate (Phoslo) 2,001 mg PO 0830,1200,1830 [facility] Last Admin: 07/14/17 12:26 Dose: 2,001 mg Dextrose (Dextrose 50% Inj) 0 ml IV STAT PRN; Protocol PRN Reason: Hypoglycemia Protocol Dextrose (Glutose 15) 0 gm PO ONCE PRN; Protocol PRN Reason: Hypoglycemia Protocol Dextrose (Dextrose 50% Inj) 50 ml IVP Q1H PRN PRN Reason: Hypoglycemia Epoetin Roel (Procrit) 14,000 unit SC MWF [facility] Last Admin: 07/16/17 09:50 Dose: 14,000 unit Fluconazole (Diflucan) 200 mg PO DAILY [facility] PRN Reason: Protocol Last Admin: 07/18/17 09:23 Dose: Not Given Glucagon (Glucagen Diagnostic Kit) 0 mg IM STAT PRN; Protocol PRN Reason: Hypoglycemia Protocol Heparin Sodium (Porcine) (Heparin) 5,000 units SC Q12 [facility] PRN Reason: Protocol Last Admin: 07/18/17 09:23 Dose: 5,000 units Hydralazine HCl (Apresoline) 50 mg PO Q8 [facility] Last Admin: 07/18/17 09:22 Dose: Not Given Hydralazine HCl (Apresoline) 10 mg IV Q4H [facility] Hydromorphone HCl (Dilaudid) 0.5 mg IVP Q4H PRN PRN Reason: Pain, moderate (4-7) Last Admin: 07/18/17 04:13 Dose: 0.5 mg Levetiracetam 500 mg/ Sodium (Chloride) 105 mls @ 210 mls/hr IVPB Q12 [facility] Last Admin: 07/18/17 09:24 Dose: 210 mls/hr Cefepime HCl 1 gm/ Sodium (Chloride) 50 mls @ 50 mls/hr IVPB DAILY [facility] PRN Reason: Protocol Last Admin: 07/17/17 08:40 Dose: 50 mls/hr Potassium Chloride/Dextrose/Sod Cl (Potassium Chl 20 Meq In D5-1/2ns) 1,000 mls @ 125 mls/hr IV .Q8H [facility] Stop: 07/19/17 09:15 Last Admin: 07/18/17 11:00 Dose: 125 mls/hr Insulin Human Lispro (Humalog) 0 units SC Q6H [facility] PRN Reason: Protocol Last Admin: 07/18/17 11:00 Dose: Not Given Levothyroxine Sodium (Synthroid) 50 mcg PO DAILY@0630 [facility] Last Admin: 07/18/17 05:30 Dose: Not Given Lisinopril (Zestril) 40 mg PO DAILY [facility] Last Admin: 07/15/17 08:55 Dose: 40 mg Metoprolol Tartrate (Lopressor) 5 mg IVP Q6 [facility] Last Admin: 07/18/17 09:24 Dose: 5 mg Pantoprazole Sodium (Protonix Inj) 40 mg IVP Q12 [facility] Last Admin: 07/18/17 09:25 Dose: 40 mg Sodium Bicarbonate (Sodium Bicarbonate Tab) 1,300 mg PO Q8 [facility] Last Admin: 07/02/17 16:23 Dose: 1,300 mg Thiamine HCl (Vitamin B1 Tab) 100 mg PO DAILY [facility] Last Admin: 07/18/17 09:26 Dose: Not Given - Labs Labs: 07/18/17 05:30 07/18/17 05:30 PT 15.3 Seconds (9.8-13.1) H 07/18/17 05:30 INR 1.4 (0.9-1.2) H 07/18/17 05:30 APTT 34.2 Seconds (25.6-37.1) 07/18/17 05:30
[2017-07-18] MEDS: Cefepime 1 GM in Sodium Chloride 0.9% 50 ML IVPB SCH (14:16)
[2017-07-18] MEDS ORDERED: Morphine 4 MG/ML VIAL IVP PRN (14:18)
--- NOTE | 2017-07-18 14:59 | RAD ---
PROCEDURE: Intraoperative fluoroscopy HISTORY: FLUOROSCOPY COMPARISON: Not available TECHNIQUE: Intraoperative fluoroscopy was provided for positioning of right chest tubes. Total time of fluoroscopy was 48.8 seconds. FINDINGS: A single fluoroscopic spot film is submitted. IMPRESSION: Fluoroscopy provided.
--- NOTE | 2017-07-18 18:32 | CP.PCM.PN ---
Subjective - Date & Time of Evaluation Date of Evaluation: 07/18/17 Time of Evaluation: 12:00 - Subjective Subjective: Patient s/p extubation yesterday but needed to be placed on high flow O2 subsequently; CXR showing white out of L lung, getting chest PT; reporting pain at site of R chest tube; Objective - Vital Signs/Intake and Output Vital Signs (last 24 hours): Temp Pulse Resp BP Pulse Ox 97.4 F L 75 24 183/77 H 100 07/18/17 16:00 07/18/17 16:58 07/18/17 16:00 07/18/17 16:58 07/18/17 16:00 Intake and Output: 07/18/17 07/18/17 06:59 18:59 Intake Total 1100 1650 Output Total 988 Balance 112 1650 - Medications Medications: Current Medications Albuterol/Ipratropium (Duoneb 3 Mg/0.5 Mg (3 Ml) Ud) 3 ml INH RQ6 [facility] Last Admin: 07/18/17 13:28 Dose: 3 ml Aspirin (Ecotrin) 81 mg PO DAILY [facility] Last Admin: 07/18/17 09:23 Dose: Not Given Bacitracin (Bacitracin Oint) 1 applic TOP DAILY [facility] Last Admin: 07/18/17 09:23 Dose: 1 applic Calcium Acetate (Phoslo) 2,001 mg PO 0830,1200,1830 [facility] Last Admin: 07/14/17 12:26 Dose: 2,001 mg Dextrose (Dextrose 50% Inj) 0 ml IV STAT PRN; Protocol PRN Reason: Hypoglycemia Protocol Dextrose (Glutose 15) 0 gm PO ONCE PRN; Protocol PRN Reason: Hypoglycemia Protocol Dextrose (Dextrose 50% Inj) 50 ml IVP Q1H PRN PRN Reason: Hypoglycemia Enalaprilat (Vasotec) 0.625 mg IVP Q6H [facility] Epoetin Roel (Procrit) 14,000 unit SC MWF [facility] Last Admin: 07/16/17 09:50 Dose: 14,000 unit Fluconazole (Diflucan) 200 mg PO DAILY [facility] PRN Reason: Protocol Last Admin: 07/18/17 09:23 Dose: Not Given Glucagon (Glucagen Diagnostic Kit) 0 mg IM STAT PRN; Protocol PRN Reason: Hypoglycemia Protocol Heparin Sodium (Porcine) (Heparin) 5,000 units SC Q12 [facility] PRN Reason: Protocol Last Admin: 07/18/17 09:23 Dose: 5,000 units Hydralazine HCl (Apresoline) 50 mg PO Q8 [facility] Last Admin: 07/18/17 09:22 Dose: Not Given Hydralazine HCl (Apresoline) 10 mg IV Q4H [facility] Last Admin: 07/18/17 16:58 Dose: 10 mg Levetiracetam 500 mg/ Sodium (Chloride) 105 mls @ 210 mls/hr IVPB Q12 [facility] Last Admin: 07/18/17 09:24 Dose: 210 mls/hr Cefepime HCl 1 gm/ Sodium (Chloride) 50 mls @ 50 mls/hr IVPB DAILY [facility] PRN Reason: Protocol Last Admin: 07/18/17 14:16 Dose: 50 mls/hr Potassium Chloride/Dextrose/Sod Cl (Potassium Chl 20 Meq In D5-1/2ns) 1,000 mls @ 125 mls/hr IV .Q8H [facility] Stop: 07/19/17 09:15 Last Admin: 07/18/17 11:00 Dose: 125 mls/hr Insulin Human Lispro (Humalog) 0 units SC Q6H [facility] PRN Reason: Protocol Last Admin: 07/18/17 16:00 Dose: Not Given Levothyroxine Sodium (Synthroid) 50 mcg PO DAILY@0630 [facility] Last Admin: 07/18/17 05:30 Dose: Not Given Lisinopril (Zestril) 40 mg PO DAILY [facility] Last Admin: 07/15/17 08:55 Dose: 40 mg Metoprolol Tartrate (Lopressor) 5 mg IVP Q6 [facility] Last Admin: 07/18/17 16:04 Dose: 5 mg Morphine Sulfate (Morphine) 1 mg IVP Q4 PRN PRN Reason: Pain, moderate (4-7) Last Admin: 07/18/17 14:46 Dose: 1 mg Morphine Sulfate (Morphine) 2 mg IVP Q6 PRN PRN Reason: Pain, severe (8-10) Pantoprazole Sodium (Protonix Inj) 40 mg IVP Q12 [facility] Last Admin: 07/18/17 09:25 Dose: 40 mg Sodium Bicarbonate (Sodium Bicarbonate Tab) 1,300 mg PO Q8 [facility] Last Admin: 07/02/17 16:23 Dose: 1,300 mg Thiamine HCl (Vitamin B1 Tab) 100 mg PO DAILY [facility] Last Admin: 07/18/17 09:26 Dose: Not Given - Labs Labs: 07/18/17 05:30 07/18/17 05:30 PT 15.3 Seconds (9.8-13.1) H 07/18/17 05:30 INR 1.4 (0.9-1.2) H 07/18/17 05:30 APTT 34.2 Seconds (25.6-37.1) 07/18/17 05:30 - Constitutional Appears: Chronically Ill - Eye Exam Eye Exam: absent: Scleral icterus - ENT Exam ENT Exam: Mucous Membranes Moist - Respiratory Exam Additional comments: rhonchi on R; clear on L; - Cardiovascular Exam Cardiovascular Exam: RRR, +S1, +S2 - GI/Abdominal Exam GI & Abdominal Exam: Soft. absent: Distended - Exam Exam: absent: Scrotal Swelling - Extremities Exam Additional comments: edematous legs and arms, overall improved; - Neurological Exam Neurological Exam: Alert, Awake - Psychiatric Exam Psychiatric exam: absent: Agitated - Skin Skin Exam: Warm. absent: Cyanosis Assessment and Plan (1) Acute renal failure Assessment & Plan: CHINTAN on CKD, resolving; hemodynamic fluctuations in serum creatinine; need to avoid intravascular volume depletion; agree with increasing IVF with D5-1/2NS to 125 cc/hr, should help with hypernatremia also; avoid dropping BP drastically (goal SBP for now in 150's); Status: Acute (2) Nephrotic syndrome Assessment & Plan: Severe hypoalbuminemia; will restart lisinopril once able to swallow meds; for now will start low dose enalaprilat IV 0.625 mg q6h; Status: Chronic (3) Pleural effusion Assessment & Plan: L chest tube removed; R chest tube still draining, cytology negative; pleural biopsy not showing making mention of any malignant cells; f/u with thoracic surgery for further management; Status: Chronic (4) Hypertensive CKD (chronic kidney disease) Assessment & Plan: BP uncontrolled; changing IV hydralazine q4h to standing order; adding enalaprilat as above; resume PO meds once able to swallow; Status: Acute (5) Chronic kidney disease, stage 3 (moderate) Status: Chronic (6) Hypothermia Status: Acute (7) Altered mental status Status: Acute (8) SIRS (systemic inflammatory response syndrome) Status: Acute (9) Anemia Assessment & Plan: Hgb stable but still below goal, continue EPO 14,000 u three times per week; Status: Chronic (10) Monoclonal gammopathy Status: Chronic
[2017-07-18] MEDS ORDERED: Enalaprilat 2.5 MG/2 ML IVP SCH (18:45)
[2017-07-18] MEDS: EnalaprilAT 1.25 mg/ml Inj IVP SCH (20:57)
--- NOTE | 2017-07-19 00:48 | PN ---
DATE: ENDOCRINOLOGY FOLLOWUP NOTE LOCATION: ICU, room 433. SUBJECTIVE: This is a is a 66-year-old male with recent acute respiratory failure and subsequent reintubation and is now being followed closely for metabolic management. His glycemic levels are fluctuating, but improved and the glucose values are ranging from 129-218 and 214 mg/dL. His latest chemistry showed a BUN of 33, sodium 150, potassium 3.1, chloride 116, CO2 of 23, glucose 157 and creatinine 2.1. So at this time we will continue his low-dose correction scale using Humalog insulin as given. We will continue the serial chemistries and supplement accordingly needed. So far, we will hold off on any basal insulin for now, but if hyperglycemic levels supervene overnight, then we will start him on the low-dose basal insulin by tomorrow morning as indicated. We will follow and advise accordingly. Bettina Mann MD
[2017-07-19] MEDS: Sodium Chloride 3% for Inhalation 4 ML VIAL.NEB IH SCH ×2 (01:00→07:43)
[2017-07-19] MEDS: Albuterol-Ipratrop 3 mg / 0.5 (3 ml) UD INH SCH ×4 (01:00→19:46)
[2017-07-19] MEDS: Potassium Ch 20mEq in D5-1/2NS 1,000 ML IV SCH (01:15)
[2017-07-19] MEDS: EnalaprilAT 1.25 mg/ml Inj IVP SCH ×2 (01:30→08:28)
[2017-07-19] MEDS: Metoprolol 1 mg/ml Inj IVP SCH ×2 (04:14→09:28)
[2017-07-19] MEDS: Insulin Lispro (humaLOG) 100 Units/ml Inj SC SCH ×4 (04:25→21:45)
[2017-07-19 05:52] LABS: BASO # 0.1 K/uL (0.0-0.2); EOS # 0.3 K/uL (0.0-0.7); EOS % 4.4 % (0.0-4.0); HEMOGLOBIN 9.3 g/dL (12.0-18.0); LYMPH # 0.9 K/uL (1.0-4.3); LYMPH % 15.5 % (20.0-40.0); MEAN CELL VOLUME 93.7 fl (80.0-94.0); MEAN CORPUSCULAR HEMOGLOBIN 29.6 pg (27.0-31.0); MEAN CORPUSCULAR HGB CONC 31.6 g/dL (33.0-37.0); MEAN PLATELET VOLUME 9.7 fl (7.2-11.7); MONO # 0.5 K/uL (0.0-0.8); NEUT # 4.1 K/uL (1.8-7.0); NEUT % 71.1 % (50.0-75.0); NRBC % 0.5 % (0.0-0.0); RBC 3.13 Mil/uL (4.40-5.90); RED CELL DISTRIBUTION WIDTH 18.5 % (11.5-14.5); WHITE BLOOD COUNT 5.7 K/uL (4.8-10.8)
[2017-07-19 06:11] LABS: ALB/GLOB RATIO 0.9 (1.0-2.1); ALBUMIN 2.4 g/dL (3.5-5.0); CALCIUM 7.4 mg/dL (8.4-10.2)
--- NOTE | 2017-07-19 07:08 | CP.PCM.PN ---
Subjective - Date & Time of Evaluation Date of Evaluation: 07/19/17 Time of Evaluation: 05:45 - Subjective Subjective: CT surgery progress note for Dr. Hannah Vila, PGY-1 Pt S & E at bedside. No acute events overnight per nursing. R posterior CT w/450cc/12H, R anterior CT w/30cc/12H. No airleak bilaterally. Objective - Vital Signs/Intake and Output Vital Signs (last 24 hours): Temp Pulse Resp BP Pulse Ox 97.7 F 77 25 H 162/64 H 99 07/19/17 06:00 07/19/17 06:00 07/19/17 06:00 07/19/17 06:00 07/19/17 06:00 Intake and Output: 07/19/17 07/19/17 06:59 18:59 Intake Total 1600 Output Total 736 Balance 864 - Medications Medications: Current Medications Albuterol/Ipratropium (Duoneb 3 Mg/0.5 Mg (3 Ml) Ud) 3 ml INH RQ6 [facility] Last Admin: 07/19/17 01:00 Dose: 3 ml Aspirin (Ecotrin) 81 mg PO DAILY [facility] Last Admin: 07/18/17 09:23 Dose: Not Given Bacitracin (Bacitracin Oint) 1 applic TOP DAILY [facility] Last Admin: 07/18/17 09:23 Dose: 1 applic Calcium Acetate (Phoslo) 2,001 mg PO 0830,1200,1830 [facility] Last Admin: 07/14/17 12:26 Dose: 2,001 mg Dextrose (Dextrose 50% Inj) 0 ml IV STAT PRN; Protocol PRN Reason: Hypoglycemia Protocol Dextrose (Glutose 15) 0 gm PO ONCE PRN; Protocol PRN Reason: Hypoglycemia Protocol Dextrose (Dextrose 50% Inj) 50 ml IVP Q1H PRN PRN Reason: Hypoglycemia Enalaprilat (Vasotec Iv) 0.625 mg IVP Q6H [facility] Last Admin: 07/19/17 01:30 Dose: 0.625 mg Epoetin Roel (Procrit) 14,000 unit SC MWF [facility] Last Admin: 07/16/17 09:50 Dose: 14,000 unit Fluconazole (Diflucan) 200 mg PO DAILY [facility] PRN Reason: Protocol Last Admin: 07/18/17 09:23 Dose: Not Given Glucagon (Glucagen Diagnostic Kit) 0 mg IM STAT PRN; Protocol PRN Reason: Hypoglycemia Protocol Heparin Sodium (Porcine) (Heparin) 5,000 units SC Q12 [facility] PRN Reason: Protocol Last Admin: 07/18/17 20:53 Dose: 5,000 units Hydralazine HCl (Apresoline) 50 mg PO Q8 [facility] Last Admin: 07/18/17 09:22 Dose: Not Given Hydralazine HCl (Apresoline) 10 mg IV Q4H [facility] Last Admin: 07/19/17 05:21 Dose: 10 mg Levetiracetam 500 mg/ Sodium (Chloride) 105 mls @ 210 mls/hr IVPB Q12 [facility] Last Admin: 07/18/17 20:45 Dose: 210 mls/hr Cefepime HCl 1 gm/ Sodium (Chloride) 50 mls @ 50 mls/hr IVPB DAILY [facility] PRN Reason: Protocol Last Admin: 07/18/17 14:16 Dose: 50 mls/hr Potassium Chloride/Dextrose/Sod Cl (Potassium Chl 20 Meq In D5-1/2ns) 1,000 mls @ 125 mls/hr IV .Q8H [facility] Stop: 07/19/17 09:15 Last Admin: 07/19/17 01:15 Dose: 125 mls/hr Insulin Human Lispro (Humalog) 0 units SC Q6H [facility] PRN Reason: Protocol Last Admin: 07/19/17 04:25 Dose: Not Given Levothyroxine Sodium (Synthroid) 50 mcg PO DAILY@0630 [facility] Last Admin: 07/18/17 05:30 Dose: Not Given Lisinopril (Zestril) 40 mg PO DAILY [facility] Last Admin: 07/15/17 08:55 Dose: 40 mg Metoprolol Tartrate (Lopressor) 5 mg IVP Q6 [facility] Last Admin: 07/19/17 04:14 Dose: 5 mg Morphine Sulfate (Morphine) 1 mg IVP Q4 PRN PRN Reason: Pain, moderate (4-7) Last Admin: 07/18/17 14:46 Dose: 1 mg Morphine Sulfate (Morphine) 2 mg IVP Q6 PRN PRN Reason: Pain, severe (8-10) Pantoprazole Sodium (Protonix Inj) 40 mg IVP Q12 [facility] Last Admin: 07/18/17 20:54 Dose: 40 mg Sodium Bicarbonate (Sodium Bicarbonate Tab) 1,300 mg PO Q8 [facility] Last Admin: 07/02/17 16:23 Dose: 1,300 mg Thiamine HCl (Vitamin B1 Tab) 100 mg PO DAILY [facility] Last Admin: 07/18/17 09:26 Dose: Not Given - Labs Labs: 07/19/17 05:25 07/19/17 05:25 PT 15.3 Seconds (9.8-13.1) H 07/18/17 05:30 INR 1.4 (0.9-1.2) H 07/18/17 05:30 APTT 34.2 Seconds (25.6-37.1) 07/18/17 05:30 - Constitutional Appears: Non-toxic, No Acute Distress - Head Exam Head Exam: ATRAUMATIC, NORMAL INSPECTION, NORMOCEPHALIC - Eye Exam Eye Exam: EOMI, Normal appearance - ENT Exam ENT Exam: Mucous Membranes Moist, Normal Exam - Neck Exam Neck Exam: Full ROM, Normal Inspection - Respiratory Exam Respiratory Exam: NORMAL BREATHING PATTERN - Cardiovascular Exam Cardiovascular Exam: REGULAR RHYTHM, +S1, +S2 - Neurological Exam Neurological Exam: Alert, Awake - Skin Skin Exam: Dry, Intact, Normal Color, Warm Additional comments: Right chest wall with dressing in place- clean, dry, intact Assessment and Plan - Assessment and Plan (Free Text) Assessment: 66M POD#4 s/p mini R mini thoracotamy and anterior and posterior chest tube placement, and removal of traumatic chest tube. Plan: Patient continues to be stable R CTs to suction Monitor outputs FU daily CXRs Cont Aggressive pulmonary toilet No surgical intervention at this time May need pleurodesis in the future Will follow Will KENYA attending Cadence, PGY-1
[2017-07-19] MEDS: Levothyroxine 50 MCG TAB PO SCH (07:14)
[2017-07-19] MEDS: Morphine 4 MG/ML VIAL IVP PRN (08:07)
[2017-07-19] MEDS: Bacitracin OINT 15GM TOP SCH (08:27)
--- NOTE | 2017-07-19 08:28 | CP.CCUPN ---
CCU Subjective - Physician Review Events Since Last Encounter (Free Text): 07/19/17 08:25 alert and oriented, no sob, looks comfortable, BP is slightly high 177/80, not taking PO meds, will start. Has two chest tubes right sided, on IVD D5w with K for hypernatremia, which is improving . CCU Objective - Vital Signs / Intake & Output Vital Signs (Last 4 hours): Vital Signs Temp Pulse Resp BP Pulse Ox 07/19/17 08:10 81 177/70 H 07/19/17 08:00 98 F 81 22 177/70 H 98 07/19/17 07:08 20 07/19/17 06:00 97.7 F 77 25 H 162/64 H 99 07/19/17 05:21 67 153/63 H 07/19/17 04:56 19 Intake and Output (Last 8hrs): Intake & Output 07/18/17 07/19/17 07/19/17 22:59 06:59 14:59 Intake Total 1150 1000 250 Output Total 670 736 Balance 480 264 250 Weight 248 lb Intake: IV 1000 1000 250 Intake, Piggyback 100 Oral 50 Output: Chest Tube Drainage 270 436 Right Anterior Chest 0 6 Right Posterior Chest 270 430 Urine 400 300 Urethral (Salazar) 400 300 - Physical Exam Narrative Physical Exam (Free Text): 07/19/17 08:27 P/E Neck: No JVD Lungs: Decreased breath sound, rt base, Left lung breath sounds decreased in base also heart: No gallop Abdomen: soft, non-tender Ext: no edema Head: Positive for: Atraumatic, Normocephalic Pupils: Positive for: PERRL Conjunctiva: Positive for: Normal. Negative for: Icteric Mouth: Positive for: Moist Mucous Membranes. Negative for: Dry, Drooling Nose (External): Negative for: Lesions Neck: Positive for: Other (central line: left neck in place with dressing, biopatch still over line. clean and dry.) Respiratory/Chest: Positive for: Clear to Auscultation (right chest with good air entry), Decreased Breath Sounds (right lung base), Other (left chest: no breath sounds entire lung field, +dullness to percussion entire lung field.). Negative for: Respiratory Distress, Wheezes, Tachypneic Cardiovascular: Positive for: Regular Rate and Rhythm, Normal S1, S2. Negative for: Tachycardic, Bradycardic Abdomen: Positive for: Other (soft). Negative for: Tenderness, Distention Genitourinary Male: Positive for: Penile Swelling, Testicle Swelling Upper Extremity: Positive for: Edema (bilateral 2+ pitting edema; right > left) Lower Extremity: Positive for: Normal Inspection. Negative for: Edema, Tenderness Neurological: Positive for: Other (unable to speak clearly.) Skin: Positive for: Warm, Dry, Other (skin tear back of left hand) Psychiatric: Positive for: Depressed Mood - Medications Active Medications: Active Medications Generic Name Dose Route Start Last Admin Trade Name Freq PRN Reason Stop Dose Admin Albuterol/Ipratropium 3 ml 07/18/17 14:00 07/19/17 07:41 Duoneb 3 Mg/0.5 Mg (3 Ml) Ud INH 3 ml RQ6 [facility] Administration Aspirin 81 mg 07/14/17 09:00 07/18/17 09:23 Ecotrin PO Not Given DAILY [facility] Bacitracin 1 applic 07/11/17 09:00 07/18/17 09:23 Bacitracin Oint TOP 1 applic DAILY [facility] Administration Calcium Acetate 2,001 mg 07/05/17 08:30 07/14/17 12:26 Phoslo PO 2,001 mg 0830,1200,1830 [facility] Administration Dextrose 0 ml 06/22/17 22:36 Dextrose 50% Inj IV STAT PRN Hypoglycemia Protocol Protocol Dextrose 0 gm 06/22/17 22:36 Glutose 15 PO ONCE PRN Hypoglycemia Protocol Protocol Dextrose 50 ml 07/14/17 14:52 Dextrose 50% Inj IVP Q1H PRN Hypoglycemia Enalaprilat 0.625 mg 07/18/17 19:30 07/19/17 01:30 Vasotec Iv IVP 0.625 mg Q6H [facility] Administration Epoetin Roel 14,000 unit 07/07/17 09:00 07/16/17 09:50 Procrit SC 14,000 unit MWF [facility] Administration Fluconazole 200 mg 07/12/17 09:00 07/19/17 08:13 Diflucan PO 200 mg DAILY [facility] Administration Protocol Glucagon 0 mg 06/22/17 22:36 Glucagen Diagnostic Kit IM STAT PRN Hypoglycemia Protocol Protocol Heparin Sodium (Porcine) 5,000 units 07/17/17 21:00 07/18/17 20:53 Heparin SC 5,000 units Q12 [facility] Administration Protocol Hydralazine HCl 50 mg 07/13/17 12:48 07/18/17 09:22 Apresoline PO Not Given Q8 [facility] Hydralazine HCl 10 mg 07/18/17 12:30 07/19/17 08:10 Apresoline IV 10 mg Q4H [facility] Administration Levetiracetam 500 mg/ Sodium 105 mls @ 210 mls/hr 07/04/17 21:00 07/18/17 20: 45 Chloride IVPB 210 mls/hr Q12 [facility] Administration Cefepime HCl 1 gm/ Sodium 50 mls @ 50 mls/hr 07/13/17 09:00 07/18/17 14:16 Chloride IVPB 50 mls/hr DAILY [facility] Administration Protocol Potassium Chloride/Dextrose/Sod Cl 1,000 mls @ 125 mls/hr 07/18/17 09:15 01:15 Potassium Chl 20 Meq In D5-1/2ns IV 07/19/17 09:15 125 mls/hr .Q8H [facility] Administration Insulin Human Lispro 0 units 07/12/17 09:45 07/19/17 04:25 Humalog SC Not Given Q6H [facility] Protocol Levothyroxine Sodium 50 mcg 07/05/17 06:30 07/19/17 07:14 Synthroid PO 50 mcg DAILY@0630 [facility] Administration Lisinopril 40 mg 07/15/17 09:00 07/15/17 08:55 Zestril PO 40 mg DAILY [facility] Administration Metoprolol Tartrate 5 mg 07/14/17 14:51 07/19/17 04:14 Lopressor IVP 5 mg Q6 [facility] Administration Morphine Sulfate 1 mg 07/18/17 14:18 07/18/17 14:46 Morphine IVP 1 mg Q4 PRN Administration Pain, moderate (4-7) Morphine Sulfate 2 mg 07/18/17 14:19 07/19/17 08:07 Morphine IVP 2 mg Q6 PRN Administration Pain, severe (8-10) Pantoprazole Sodium 40 mg 07/08/17 21:00 07/18/17 20:54 Protonix Inj IVP 40 mg Q12 [facility] Administration Sodium Bicarbonate 1,300 mg 06/30/17 17:00 07/02/17 16:23 Sodium Bicarbonate Tab PO 1,300 mg Q8 [facility] Administration Thiamine HCl 100 mg 07/15/17 09:00 07/18/17 09:26 Vitamin B1 Tab PO Not Given DAILY [facility] - Patient Studies Lab Studies: Lab Studies 07/19/17 07/19/17 07/19/17 Range/Units 05:25 05:25 04:24 WBC 5.7 (4.8-10.8) K/uL RBC 3.13 L (4.40-5.90) Mil/uL Hgb 9.3 L (12.0-18.0) g/dL Hct 29.3 L (35.0-51.0) % MCV 93.7 (80.0-94.0) fl MCH 29.6 (27.0-31.0) pg MCHC 31.6 L (33.0-37.0) g/dL RDW 18.5 H (11.5-14.5) % Plt Count 306 (130-400) K/uL MPV 9.7 (7.2-11.7) fl Neut % (Auto) 71.1 (50.0-75.0) % Lymph % (Auto) 15.5 L (20.0-40.0) % [place] % (Auto) 8.0 (0.0-10.0) % Eos % (Auto) 4.4 H (0.0-4.0) % Baso % (Auto) 1.0 (0.0-2.0) % Neut # 4.1 (1.8-7.0) K/uL Lymph # 0.9 L (1.0-4.3) K/uL [place] # 0.5 (0.0-0.8) K/uL Eos # 0.3 (0.0-0.7) K/uL Baso # 0.1 (0.0-0.2) K/uL Sodium 148 (132-148) mmol/l Potassium 3.9 (3.6-5.0) MMOL/L Chloride 119 H (98-107) mmol/L Carbon Dioxide 22 (22-30) mmol/L Anion Gap 11 (10-20) BUN 30 H (9-20) mg/dl Creatinine 2.0 H (0.8-1.5) mg/dl Est GFR ( Amer) 41 Est GFR (Non-Af Amer) 34 POC Glucose (mg/dL) 169 H (65-110) mg/dL Random Glucose 180 H (75-110) mg/dL Calcium 7.4 L (8.4-10.2) mg/dL Total Bilirubin 0.5 (0.2-1.3) mg/dl AST 18 (17-59) U/L ALT 32 (21-72) U/L Alkaline Phosphatase 135 H (38-126) U/L Total Protein 5.0 L (6.3-8.2) G/DL Albumin 2.4 L (3.5-5.0) g/dL Globulin 2.6 (2.2-3.9) gm/dL Albumin/Globulin Ratio 0.9 L (1.0-2.1) 07/18/17 07/18/17 07/18/17 Range/Units 21:03 16:47 11:18 WBC (4.8-10.8) K/uL RBC (4.40-5.90) Mil/uL Hgb (12.0-18.0) g/dL Hct (35.0-51.0) % MCV (80.0-94.0) fl MCH (27.0-31.0) pg MCHC (33.0-37.0) g/dL RDW (11.5-14.5) % Plt Count (130-400) K/uL MPV (7.2-11.7) fl Neut % (Auto) (50.0-75.0) % Lymph % (Auto) (20.0-40.0) % [place] % (Auto) (0.0-10.0) % Eos % (Auto) (0.0-4.0) % Baso % (Auto) (0.0-2.0) % Neut # (1.8-7.0) K/uL Lymph # (1.0-4.3) K/uL [place] # (0.0-0.8) K/uL Eos # (0.0-0.7) K/uL Baso # (0.0-0.2) K/uL Sodium (132-148) mmol/l Potassium (3.6-5.0) MMOL/L Chloride (98-107) mmol/L Carbon Dioxide (22-30) mmol/L Anion Gap (10-20) BUN (9-20) mg/dl Creatinine (0.8-1.5) mg/dl Est GFR ( Amer) Est GFR (Non-Af Amer) POC Glucose (mg/dL) 214 H 218 H 129 H (65-110) mg/dL Random Glucose (75-110) mg/dL Calcium (8.4-10.2) mg/dL Total Bilirubin (0.2-1.3) mg/dl AST (17-59) U/L ALT (21-72) U/L Alkaline Phosphatase (38-126) U/L Total Protein (6.3-8.2) G/DL Albumin (3.5-5.0) g/dL Globulin (2.2-3.9) gm/dL Albumin/Globulin Ratio (1.0-2.1) Laboratory Results - last 24 hr 07/18/17 07/18/17 07/18/17 11:18 16:47 21:03 WBC RBC Hgb Hct MCV MCH MCHC RDW Plt Count MPV Neut % (Auto) Lymph % (Auto) Teton % (Auto) Eos % (Auto) Baso % (Auto) Neut # Lymph # T[place] # Eos # Baso # Sodium Potassium Chloride Carbon Dioxide Anion Gap BUN Creatinine Est GFR ( Amer) Est GFR (Non-Af Amer) POC Glucose (mg/dL) 129 H 218 H 214 H Random Glucose Calcium Total Bilirubin AST ALT Alkaline Phosphatase Total Protein Albumin Globulin Albumin/Globulin Ratio 07/19/17 07/19/17 07/19/17 04:24 05:25 05:25 WBC 5.7 RBC 3.13 L Hgb 9.3 L Hct 29.3 L MCV 93.7 MCH 29.6 MCHC 31.6 L RDW 18.5 H Plt Count 306 MPV 9.7 Neut % (Auto) 71.1 Lymph % (Auto) 15.5 L [place] % (Auto) 8.0 Eos % (Auto) 4.4 H Baso % (Auto) 1.0 Neut # 4.1 Lymph # 0.9 L [place] # 0.5 Eos # 0.3 Baso # 0.1 Sodium 148 Potassium 3.9 Chloride 119 H Carbon Dioxide 22 Anion Gap 11 BUN 30 H Creatinine 2.0 H Est GFR ( Amer) 41 Est GFR (Non-Af Amer) 34 POC Glucose (mg/dL) 169 H Random Glucose 180 H Calcium 7.4 L Total Bilirubin 0.5 AST 18 ALT 32 Alkaline Phosphatase 135 H Total Protein 5.0 L Albumin 2.4 L Globulin 2.6 Albumin/Globulin Ratio 0.9 L Fingerstick Blood Sugar Results: 214 Critical Care Progress Note - Nutrition Nutrition: Nutrition Category Date Time Status Dysphagia/Modified Consistency Diet [DIET] Diets 07/18/17 Dinner Active Assessment/Plan - Assessment and Plan (Free Text) Assessment: A/P: 66 year old male with PMH of HTN, DM, CKD, w/ nephrotic syndrome, monoclonal gammopathy, recurrent L pleural effusion, admitted with hypothermia, CHINTAN and altered mental status. Hypothermia/CHINTAN/AMS have resolved however patient then had subsequent respiratory failure requiring intubation thought to be 2' to persistent pleural effusions bilaterally vs PNA. Alert and awake. On High flow. Whiteout of left hemithorax. Repeat CXR later this afternoon. Monitor respiratory status. Resp Failure: COPD, pleural effusion, s/p rt sided chest tube, has opaque right lung yesterday but on exam has more right sided breath sounds, will check CXR today Hypernatremia: improving with IVF, will decrease to 80 cc/h, D5w with 20 kcl CKD-3B, with nephrotic syndrom, h/o monoclonal gammopathy: renal function stable HTN: Not well control , will start PO meds and will monitor, on Norvasc, lisinopril, hydralzine, lopressor Neuro: Awake and alert. Following commands. On Keppra. GI: Protonix for prophylaxis, swallow eval. Consider OG tube if does not pass swallow test. Endocrine: - DM 2, blood glucose monitoring, sliding scale insulin, hypothyroidism: on synthroid. Dr. Mann is following. Heme: -Anemia of chronic disease: hg 8.9 ID: Cefepime, po diflucan. Trachasp culture: Yeast species (07/14/17) Prophylaxis: DVT: SCDS, Heparin started 07/17/17 GI: Protonix
[2017-07-19] MEDS: Cefepime 1 GM in Sodium Chloride 0.9% 50 ML IVPB SCH (08:30)
--- NOTE | 2017-07-19 08:35 | CP.PCM.PN ---
Subjective - Date & Time of Evaluation Date of Evaluation: 07/19/17 Time of Evaluation: 07:15 - Subjective Subjective: Patient seen and examined bedside with . Patient extubated,using high flow 760% 35 LPM, awake,alert,able to speak louder today and follow commands, oriented x2 (person, place). Patient c/o right side chest pain over chest tube area. Morphine given. Denies abd pain, n,v,d. Aslazar with yellow urine 150 ml Right side chest tube anterior 6 ml and posterior 700 ml output. Psyq evaluation reports pt no able to make medical decision Objective - Vital Signs/Intake and Output Vital Signs (last 24 hours): Temp Pulse Resp BP Pulse Ox 98 F 81 22 177/70 H 98 07/19/17 08:00 07/19/17 08:10 07/19/17 08:00 07/19/17 08:28 07/19/17 08:00 Intake and Output: 07/19/17 07/19/17 06:59 18:59 Intake Total 1600 250 Output Total 736 Balance 864 250 - Medications Medications: Current Medications Albuterol/Ipratropium (Duoneb 3 Mg/0.5 Mg (3 Ml) Ud) 3 ml INH RQ6 [facility] Last Admin: 07/19/17 07:41 Dose: 3 ml Aspirin (Ecotrin) 81 mg PO DAILY [facility] Last Admin: 07/18/17 09:23 Dose: Not Given Bacitracin (Bacitracin Oint) 1 applic TOP DAILY [facility] Last Admin: 07/19/17 08:27 Dose: Not Given Calcium Acetate (Phoslo) 2,001 mg PO 0830,1200,1830 [facility] Last Admin: 07/14/17 12:26 Dose: 2,001 mg Dextrose (Dextrose 50% Inj) 0 ml IV STAT PRN; Protocol PRN Reason: Hypoglycemia Protocol Dextrose (Glutose 15) 0 gm PO ONCE PRN; Protocol PRN Reason: Hypoglycemia Protocol Dextrose (Dextrose 50% Inj) 50 ml IVP Q1H PRN PRN Reason: Hypoglycemia Enalaprilat (Vasotec Iv) 0.625 mg IVP Q6H [facility] Last Admin: 07/19/17 08:28 Dose: 0.625 mg Epoetin Roel (Procrit) 14,000 unit SC MWF [facility] Last Admin: 07/16/17 09:50 Dose: 14,000 unit Fluconazole (Diflucan) 200 mg PO DAILY [facility] PRN Reason: Protocol Last Admin: 07/19/17 08:13 Dose: 200 mg Glucagon (Glucagen Diagnostic Kit) 0 mg IM STAT PRN; Protocol PRN Reason: Hypoglycemia Protocol Heparin Sodium (Porcine) (Heparin) 5,000 units SC Q12 [facility] PRN Reason: Protocol Last Admin: 07/19/17 08:27 Dose: 5,000 units Hydralazine HCl (Apresoline) 50 mg PO Q8 [facility] Last Admin: 07/18/17 09:22 Dose: Not Given Hydralazine HCl (Apresoline) 10 mg IV Q4H [facility] Last Admin: 07/19/17 08:10 Dose: 10 mg Levetiracetam 500 mg/ Sodium (Chloride) 105 mls @ 210 mls/hr IVPB Q12 [facility] Last Admin: 07/18/17 20:45 Dose: 210 mls/hr Cefepime HCl 1 gm/ Sodium (Chloride) 50 mls @ 50 mls/hr IVPB DAILY [facility] PRN Reason: Protocol Last Admin: 07/19/17 08:30 Dose: 50 mls/hr Potassium Chloride/Dextrose/Sod Cl (Potassium Chl 20 Meq In D5-1/2ns) 1,000 mls @ 125 mls/hr IV .Q8H [facility] Stop: 07/19/17 09:15 Last Admin: 07/19/17 01:15 Dose: 125 mls/hr Insulin Human Lispro (Humalog) 0 units SC Q6H [facility] PRN Reason: Protocol Last Admin: 07/19/17 04:25 Dose: Not Given Levothyroxine Sodium (Synthroid) 50 mcg PO DAILY@0630 [facility] Last Admin: 07/19/17 07:14 Dose: 50 mcg Lisinopril (Zestril) 40 mg PO DAILY [facility] Last Admin: 07/15/17 08:55 Dose: 40 mg Metoprolol Tartrate (Lopressor) 5 mg IVP Q6 [facility] Last Admin: 07/19/17 04:14 Dose: 5 mg Morphine Sulfate (Morphine) 1 mg IVP Q4 PRN PRN Reason: Pain, moderate (4-7) Last Admin: 07/18/17 14:46 Dose: 1 mg Morphine Sulfate (Morphine) 2 mg IVP Q6 PRN PRN Reason: Pain, severe (8-10) Last Admin: 07/19/17 08:07 Dose: 2 mg Pantoprazole Sodium (Protonix Inj) 40 mg IVP Q12 [facility] Last Admin: 07/19/17 08:28 Dose: 40 mg Sodium Bicarbonate (Sodium Bicarbonate Tab) 1,300 mg PO Q8 [facility] Last Admin: 07/02/17 16:23 Dose: 1,300 mg Thiamine HCl (Vitamin B1 Tab) 100 mg PO DAILY [facility] Last Admin: 07/19/17 08:29 Dose: 100 mg - Labs Labs: 07/19/17 05:25 07/19/17 05:25 PT 15.3 Seconds (9.8-13.1) H 07/18/17 05:30 INR 1.4 (0.9-1.2) H 07/18/17 05:30 APTT 34.2 Seconds (25.6-37.1) 07/18/17 05:30 - Constitutional Appears: Non-toxic, No Acute Distress - Head Exam Head Exam: ATRAUMATIC, NORMOCEPHALIC - Eye Exam Eye Exam: Normal appearance - ENT Exam ENT Exam: Mucous Membranes Moist - Neck Exam Neck Exam: Normal Inspection - Respiratory Exam Respiratory Exam: Decreased Breath Sounds. absent: Rales, Rhonchi, Wheezes Additional comments: bibasal decreased breath sound Right side anterior and posterior chest tube. left side triple lumen subclavian catheter. - Cardiovascular Exam Cardiovascular Exam: REGULAR RHYTHM, +S1, +S2 - GI/Abdominal Exam GI & Abdominal Exam: Soft, Normal Bowel Sounds. absent: Tenderness - Extremities Exam Extremities Exam: absent: Pedal Edema Additional comments: B/L hands and forearm edema improving 1+. left hand abrasion with scab formation - Neurological Exam Neurological Exam: Alert, Awake, Oriented x3 - Psychiatric Exam Psychiatric exam: Normal Mood - Skin Additional comments: left hand abrasion with scab formation Assessment and Plan - Assessment and Plan (Free Text) Plan: 66 yo M w/ PMHx HTN, DM, DM nephropathy, monoclonal gammopathy, recurrent L pleural effusion admitted for sepsis, Hypothermia, CHINTAN on CKD Full Code Psyq evaluation reports that pt has not capacity to make medical decision. 1) Acute Respiratory Failure -Extubated -High flow 60% 35 LPM -s/p OR relocation right chest tube for Pneumotorax -sputum cx ross Alb fungus cx. , diflucan PO, diflucan day # 7 -CXR today: improved significant left hemithorax atelectasia. persistent left side pleural effusion interpreted by me.no official reading -Pulmonology reconsulted Dr joshi.Pending evaluation 2) Recurrent Left Pleural effusion, Transudate -Pulmonology consult appreciated: no benefit for bronchoscopy or lung biopsy -Cardiothoracic surgery consult appreciated, considering talc pleurodesis - s/p left side chest tube removed -s/p right side chest tube anterior POD#4 and right side chest tube post Posterior POD#4 -CT chest s/p relocation chest tube right side and showed left pleural effusion partially loculated -quantiferon gold:indeterminate, AFB x4 neg -f/u pleural cx -traq asp cx yest 1 3) Hypernatremia -resolved borderline hig -Hydration D5 1/2 NS 125 ml/h -f/u BMP 4) HAP -improved -c/w cefepime day # 24 5) DM nephropathy -Kidney biopsy 06/05/17: Diabetic nephropathy, nodular glomerulosclerosis, associated with aprox 40 % globally sclerosed glomeruli( calss III), 10-15 % segmentally sclerosed glomeruli, docal moderate interstitial fibrosis and mod vascular sclerosis, including marked hyaline arteriolosclerosis.NO EVIDENCE OF MONOCLONAL LIGHT OR HEAVY CHAIN-RELATED RENAL DISEASE. -Nephro consult appreciated: on D5-1/2 NS at 125ml/h, albumin 12.5 g x 2 -will start Lisinopril oral 40 mg daily .c/w Hydralazine 50 Q8h -Renal duplex: no renal vein thrombosis 6) CHINTAN on CKD stage 4 w/ new onset of ATN -BUN/Cr improving - Nephorologist consult appreciated -no steroids, no Hd 7) Hypothyroidism, subclinical -Econdrinologist consult appreciated -c/w levothryroxin 50 mcg daily 8) Hyperprolactinemia -Prolactin trending down last 57. f/u prolactin level -Endocrionologist consult suggested -MRI brain:no inracraneal hemorrhage, chronic lacunar infarct b/l cerebral, changes in dali haydee represent chronic ischemia or sequela of osmotic myelonilolysis not excluded.chronic b/l basal nuclei lacunar infarcts, mastoid ppasification secondary to intubation 9) Pressure Ulcer and TDI -resolved 10) pEF CHF -Echo 05/31/17 normal EF 60-65% -c/w Metoprolol IV, hydralazine 50 mg Q8h PRN 11) DM 2 -SSI 12) HTN - Hydralazine 50 Q8. To keep systolic BP 150 - Metropolol Tartrate 5 mg IV deb q 6h -lisinopril 40mg daily 13) Anemia -secondary to CKD -s/p transfucion 4u pRBC -Hgb: 9.3 -C/W procrit 14) DVT prophylaxis -on Heparin (Cr Cl 32 ml) 15) GI prophylaxis -Pantoprazol 40 mg IV
[2017-07-19] MEDS: levETIRAcetam 500 MG in Sodium Chloride 0.9% 100 ML IVPB SCH ×2 (09:28→20:04)
--- NOTE | 2017-07-19 09:59 | CP.PCM.PN ---
Subjective - Date & Time of Evaluation Date of Evaluation: 07/19/17 Time of Evaluation: 09:59 - Subjective Subjective: AWAKE AND ALERT NO SOB R CHEST TUBES IN PLACE Objective - Vital Signs/Intake and Output Vital Signs (last 24 hours): Temp Pulse Resp BP Pulse Ox 98 F 81 22 160/73 H 98 07/19/17 08:00 07/19/17 08:10 07/19/17 08:00 07/19/17 09:28 07/19/17 08:00 Intake and Output: 07/19/17 07/19/17 06:59 18:59 Intake Total 1600 250 Output Total 736 Balance 864 250 - Medications Medications: Current Medications Albuterol/Ipratropium (Duoneb 3 Mg/0.5 Mg (3 Ml) Ud) 3 ml INH RQ6 [facility] Last Admin: 07/19/17 07:41 Dose: 3 ml Aspirin (Ecotrin) 81 mg PO DAILY [facility] Last Admin: 07/18/17 09:23 Dose: Not Given Bacitracin (Bacitracin Oint) 1 applic TOP DAILY [facility] Last Admin: 07/19/17 08:27 Dose: Not Given Calcium Acetate (Phoslo) 2,001 mg PO 0830,1200,1830 [facility] Last Admin: 07/14/17 12:26 Dose: 2,001 mg Dextrose (Dextrose 50% Inj) 0 ml IV STAT PRN; Protocol PRN Reason: Hypoglycemia Protocol Dextrose (Glutose 15) 0 gm PO ONCE PRN; Protocol PRN Reason: Hypoglycemia Protocol Dextrose (Dextrose 50% Inj) 50 ml IVP Q1H PRN PRN Reason: Hypoglycemia Enalaprilat (Vasotec Iv) 0.625 mg IVP Q6H [facility] Last Admin: 07/19/17 08:28 Dose: 0.625 mg Epoetin Roel (Procrit) 14,000 unit SC MWF [facility] Last Admin: 07/16/17 09:50 Dose: 14,000 unit Fluconazole (Diflucan) 200 mg PO DAILY [facility] PRN Reason: Protocol Last Admin: 07/19/17 08:13 Dose: 200 mg Glucagon (Glucagen Diagnostic Kit) 0 mg IM STAT PRN; Protocol PRN Reason: Hypoglycemia Protocol Heparin Sodium (Porcine) (Heparin) 5,000 units SC Q12 [facility] PRN Reason: Protocol Last Admin: 07/19/17 08:27 Dose: 5,000 units Hydralazine HCl (Apresoline) 50 mg PO Q8 [facility] Last Admin: 07/18/17 09:22 Dose: Not Given Hydralazine HCl (Apresoline) 10 mg IV Q4H [facility] Last Admin: 07/19/17 08:10 Dose: 10 mg Levetiracetam 500 mg/ Sodium (Chloride) 105 mls @ 210 mls/hr IVPB Q12 [facility] Last Admin: 07/19/17 09:28 Dose: 210 mls/hr Cefepime HCl 1 gm/ Sodium (Chloride) 50 mls @ 50 mls/hr IVPB DAILY [facility] PRN Reason: Protocol Last Admin: 07/19/17 08:30 Dose: 50 mls/hr Insulin Human Lispro (Humalog) 0 units SC Q6H [facility] PRN Reason: Protocol Last Admin: 07/19/17 09:46 Dose: Not Given Levothyroxine Sodium (Synthroid) 50 mcg PO DAILY@0630 [facility] Last Admin: 07/19/17 07:14 Dose: 50 mcg Lisinopril (Zestril) 40 mg PO DAILY [facility] Last Admin: 07/15/17 08:55 Dose: 40 mg Metoprolol Tartrate (Lopressor) 5 mg IVP Q6 [facility] Last Admin: 07/19/17 09:28 Dose: 5 mg Morphine Sulfate (Morphine) 1 mg IVP Q4 PRN PRN Reason: Pain, moderate (4-7) Last Admin: 07/18/17 14:46 Dose: 1 mg Morphine Sulfate (Morphine) 2 mg IVP Q6 PRN PRN Reason: Pain, severe (8-10) Last Admin: 07/19/17 08:07 Dose: 2 mg Pantoprazole Sodium (Protonix Inj) 40 mg IVP Q12 [facility] Last Admin: 07/19/17 08:28 Dose: 40 mg Sodium Bicarbonate (Sodium Bicarbonate Tab) 1,300 mg PO Q8 [facility] Last Admin: 07/02/17 16:23 Dose: 1,300 mg Thiamine HCl (Vitamin B1 Tab) 100 mg PO DAILY [facility] Last Admin: 07/19/17 08:29 Dose: 100 mg - Labs Labs: 07/19/17 05:25 07/19/17 05:25 PT 15.3 Seconds (9.8-13.1) H 07/18/17 05:30 INR 1.4 (0.9-1.2) H 07/18/17 05:30 APTT 34.2 Seconds (25.6-37.1) 07/18/17 05:30 - Constitutional Appears: Chronically Ill - Head Exam Head Exam: ATRAUMATIC, NORMAL INSPECTION, NORMOCEPHALIC - Eye Exam Eye Exam: EOMI, Normal appearance, PERRL Pupil Exam: NORMAL ACCOMODATION, PERRL - ENT Exam ENT Exam: Mucous Membranes Moist, Normal Exam - Neck Exam Neck Exam: Full ROM, Normal Inspection. absent: Lymphadenopathy - Respiratory Exam Respiratory Exam: Clear to Ausculation Bilateral, Prolonged Expiratory Phase, NORMAL BREATHING PATTERN - Cardiovascular Exam Cardiovascular Exam: REGULAR RHYTHM, +S1, +S2. absent: Murmur - GI/Abdominal Exam GI & Abdominal Exam: Soft, Normal Bowel Sounds. absent: Tenderness - Rectal Exam Rectal Exam: NORMAL INSPECTION - Extremities Exam Extremities Exam: Full ROM, Normal Capillary Refill, Normal Inspection. absent : Joint Swelling, Pedal Edema - Back Exam Back Exam: NORMAL INSPECTION - Neurological Exam Neurological Exam: Alert, Awake, CN II-XII Intact, Oriented x3 - Psychiatric Exam Psychiatric exam: Normal Affect, Normal Mood - Skin Skin Exam: Dry, Intact, Normal Color, Warm Assessment and Plan - Assessment and Plan (Free Text) Assessment: RESPIRATORY FAILURE WITH PLEURAL EFFUSIONS IMPROVING Plan: CONTINUE CURRENT RX
--- NOTE | 2017-07-19 10:08 | RAD ---
PROCEDURE: CHEST RADIOGRAPH, 1 VIEW HISTORY: pleural effusion COMPARISON: Portable chest 07/18/2017. FINDINGS: 2 right chest tubes are unchanged in position. Left subclavian central venous line is also unchanged. LUNGS: Left pleural effusion is markedly reduced with significant improved aeration of the at least the right upper lobe. Left base remains opacified. No definite right-sided infiltrate. Reticular markings are somewhat increased at the mid to inferior lung zone. Cardiac silhouette is enlarged. No definite pulmonary vascular derangement. PLEURA: No pneumothorax bilaterally. Left pleural effusion addressed above. Trace right pleural effusion is questioned. CARDIOVASCULAR: As above. OSSEOUS STRUCTURES: No significant abnormalities. VISUALIZED UPPER ABDOMEN: Normal. OTHER FINDINGS: None. IMPRESSION: Digitally reduced left pleural effusion with significant residual remaining. Improving aeration left lung including the left upper lobe predominately. Left base remains opacified.
[2017-07-19] MEDS: Sodium Chloride 0.45% 1,000 ML IV SCH (14:01)
--- NOTE | 2017-07-19 16:43 | CP.PCM.PN ---
Subjective - Date & Time of Evaluation Date of Evaluation: 07/19/17 Time of Evaluation: 12:00 - Subjective Subjective: 66 yo M w/ pmh of htn, dm, CKD IIIB secondary to diabetic nephropathy w/ nephrotic syndrome, recurrent pleural effusion, admitted with SIRS/sepsis, CHINTAN and recurrent pleural effusion; R chest tubes continue to drain; patient denies being short of breath; admits to pain at side of R chest tube insertion; restarted on PO meds today, to try PO feeds soon; Objective - Vital Signs/Intake and Output Vital Signs (last 24 hours): Temp Pulse Resp BP Pulse Ox 96.5 F L 74 23 165/65 H 97 07/19/17 16:00 07/19/17 16:00 07/19/17 16:00 07/19/17 16:21 07/19/17 16:00 Intake and Output: 07/19/17 07/19/17 06:59 18:59 Intake Total 1600 1210 Output Total 736 Balance 864 1210 - Medications Medications: Current Medications Albuterol/Ipratropium (Duoneb 3 Mg/0.5 Mg (3 Ml) Ud) 3 ml INH RQ6 [facility] Last Admin: 07/19/17 13:33 Dose: 3 ml Aspirin (Ecotrin) 81 mg PO DAILY [facility] Last Admin: 07/18/17 09:23 Dose: Not Given Bacitracin (Bacitracin Oint) 1 applic TOP DAILY [facility] Last Admin: 07/19/17 08:27 Dose: Not Given Calcium Acetate (Phoslo) 2,001 mg PO 0830,1200,1830 [facility] Last Admin: 07/14/17 12:26 Dose: 2,001 mg Dextrose (Dextrose 50% Inj) 0 ml IV STAT PRN; Protocol PRN Reason: Hypoglycemia Protocol Dextrose (Glutose 15) 0 gm PO ONCE PRN; Protocol PRN Reason: Hypoglycemia Protocol Dextrose (Dextrose 50% Inj) 50 ml IVP Q1H PRN PRN Reason: Hypoglycemia Enalaprilat (Vasotec Iv) 0.625 mg IVP Q6H [facility] Last Admin: 07/19/17 08:28 Dose: 0.625 mg Epoetin Roel (Procrit) 14,000 unit SC MWF [facility] Last Admin: 07/16/17 09:50 Dose: 14,000 unit Fluconazole (Diflucan) 200 mg PO DAILY [facility] PRN Reason: Protocol Last Admin: 07/19/17 08:13 Dose: 200 mg Glucagon (Glucagen Diagnostic Kit) 0 mg IM STAT PRN; Protocol PRN Reason: Hypoglycemia Protocol Heparin Sodium (Porcine) (Heparin) 5,000 units SC Q12 [facility] PRN Reason: Protocol Last Admin: 07/19/17 08:27 Dose: 5,000 units Hydralazine HCl (Apresoline) 10 mg IV Q4H [facility] Last Admin: 07/19/17 12:25 Dose: 10 mg Hydralazine HCl (Apresoline) 50 mg PO Q8 [facility] Last Admin: 07/19/17 16:21 Dose: 50 mg Levetiracetam 500 mg/ Sodium (Chloride) 105 mls @ 210 mls/hr IVPB Q12 [facility] Last Admin: 07/19/17 09:28 Dose: 210 mls/hr Cefepime HCl 1 gm/ Sodium (Chloride) 50 mls @ 50 mls/hr IVPB DAILY [facility] PRN Reason: Protocol Last Admin: 07/19/17 08:30 Dose: 50 mls/hr Sodium Chloride (Sodium Chloride 0.45%) 1,000 mls @ 80 mls/hr IV .[id number] [facility] Stop: 07/20/17 13:22 Last Admin: 07/19/17 14:01 Dose: 80 mls/hr Insulin Human Lispro (Humalog) 0 units SC Q6H [facility] PRN Reason: Protocol Last Admin: 07/19/17 15:51 Dose: Not Given Levothyroxine Sodium (Synthroid) 50 mcg PO DAILY@0630 [facility] Last Admin: 07/19/17 07:14 Dose: 50 mcg Lisinopril (Zestril) 40 mg PO DAILY [facility] Last Admin: 07/19/17 16:21 Dose: 40 mg Metoprolol Tartrate (Lopressor) 5 mg IVP Q6 [facility] Last Admin: 07/19/17 09:28 Dose: 5 mg Morphine Sulfate (Morphine) 1 mg IVP Q4 PRN PRN Reason: Pain, moderate (4-7) Last Admin: 07/18/17 14:46 Dose: 1 mg Morphine Sulfate (Morphine) 2 mg IVP Q6 PRN PRN Reason: Pain, severe (8-10) Last Admin: 07/19/17 08:07 Dose: 2 mg Pantoprazole Sodium (Protonix Inj) 40 mg IVP Q12 [facility] Last Admin: 07/19/17 08:28 Dose: 40 mg Sodium Bicarbonate (Sodium Bicarbonate Tab) 1,300 mg PO Q8 [facility] Last Admin: 07/02/17 16:23 Dose: 1,300 mg Thiamine HCl (Vitamin B1 Tab) 100 mg PO DAILY [facility] Last Admin: 07/19/17 08:29 Dose: 100 mg - Labs Labs: 07/19/17 05:25 07/19/17 05:25 PT 15.3 Seconds (9.8-13.1) H 07/18/17 05:30 INR 1.4 (0.9-1.2) H 07/18/17 05:30 APTT 34.2 Seconds (25.6-37.1) 07/18/17 05:30 - Constitutional Appears: No Acute Distress, Chronically Ill - Eye Exam Eye Exam: absent: Scleral icterus - ENT Exam ENT Exam: Mucous Membranes Moist - Respiratory Exam Respiratory Exam: absent: Respiratory Distress Additional comments: mostly clear to auscultation but some R sided rhonchorous sounds; - Cardiovascular Exam Cardiovascular Exam: RRR, +S1, +S2 - GI/Abdominal Exam GI & Abdominal Exam: Distended, Soft. absent: Tenderness - Extremities Exam Additional comments: markedly edematous; - Neurological Exam Neurological Exam: Alert, Awake Additional comments: responding appropriately; - Psychiatric Exam Psychiatric exam: absent: Agitated - Skin Skin Exam: Warm. absent: Cyanosis Assessment and Plan (1) Acute renal failure Assessment & Plan: CHINTAN on CKD; ATN, resolved; still high risk for hemodynamic fluctuations in renal function in the setting of nephrotic syndrome and likely underlying vascular disease; avoid drastic reductions in BP; would aim for SBP in 150's for now, will try to control BP gradually now that PO meds being restarted; Status: Acute (2) Nephrotic syndrome Assessment & Plan: With severe hypoalbuminemia; restarted on KEVIN blockade (lisinopril 40 mg daily) ; will eventually add dihydropyridine CCB (cardizem) for further anti- proteinuric effect; aldactone also helpful in this regard but hyperkalemia had been an issue previously; will restart standing loop diuretics once patient is more stable; Status: Chronic (3) Pleural effusion Assessment & Plan: R chest tube still draining significant amount of fluid; in setting of recurrent effusions, may benefit from pleurodesis, will f/u with thoracic surgery; otherwise, we will continue to treat nephrotic syndrome as above; Status: Chronic (4) Hypertensive CKD (chronic kidney disease) Assessment & Plan: BP uncontrolled but just restarted on PO meds (hydralazine 50 mg q8h, lisinopril 40 mg daily); Status: Acute (5) Chronic kidney disease, stage 3 (moderate) Status: Chronic (6) Hypothermia Status: Acute (7) Altered mental status Status: Acute (8) SIRS (systemic inflammatory response syndrome) Status: Acute (9) Anemia Assessment & Plan: Hgb stable, continue current dose of EPO; Status: Chronic (10) Monoclonal gammopathy Status: Chronic
[2017-07-19] MEDS: Morphine 4 MG/ML VIAL IVP SCH ×2 (17:53→20:06)
--- NOTE | 2017-07-19 21:29 | PN ---
DATE: ENDOCRINOLOGY FOLLOWUP NOTE LOCATION: ICU, room 433. SUBJECTIVE: This is a 66-year-old male with recent acute respiratory failure and underlying pleural effusion and is now being followed closely for metabolic management. His glycemic levels are fluctuating, but improved and the glucose values have ranged from 163 to 195 mg/dL. His latest chemistry showed a BUN of 30, sodium 148, potassium 3.9, chloride 119, CO2 of 22, glucose 180 and creatinine 2.0. So at this time we will continue the same low-dose correction scale using Humalog insulin as given. We will also continue the low-dose levothyroxine given as Synthroid at 50 mcg daily as ordered. We will obtain serial chemistries and supplement accordingly as needed. We will follow. Bettina Mann MD
[2017-07-19] MEDS ORDERED: EnalaprilAT 1.25 mg/ml Inj IV ONE (23:19)
[2017-07-20] MEDS: Morphine 4 MG/ML VIAL IVP SCH ×6 (00:07→21:02)
[2017-07-20] MEDS: Sodium Chloride 0.45% 1,000 ML IV SCH (03:00)
[2017-07-20] MEDS: Albuterol-Ipratrop 3 mg / 0.5 (3 ml) UD INH SCH ×4 (03:11→20:50)
[2017-07-20] MEDS: Sodium Chloride 3% for Inhalation 4 ML VIAL.NEB IH SCH ×2 (03:30→20:50)
[2017-07-20] MEDS: Insulin Lispro (humaLOG) 100 Units/ml Inj SC SCH ×4 (04:00→21:58)
[2017-07-20] MEDS: Morphine 4 MG/ML VIAL IVP PRN (04:08)
[2017-07-20] MEDS: Levothyroxine 50 MCG TAB PO SCH (05:42)
[2017-07-20 05:50] LABS: BASO # 0.1 K/uL (0.0-0.2); BASO % 1.5 % (0.0-2.0); EOS # 0.3 K/uL (0.0-0.7); EOS % 5.9 % (0.0-4.0); HEMOGLOBIN 9.7 g/dL (12.0-18.0); LYMPH # 0.9 K/uL (1.0-4.3); LYMPH % 17.9 % (20.0-40.0); MEAN CELL VOLUME 94.3 fl (80.0-94.0); MEAN CORPUSCULAR HEMOGLOBIN 28.8 pg (27.0-31.0); MEAN CORPUSCULAR HGB CONC 30.5 g/dL (33.0-37.0); MEAN PLATELET VOLUME 9.4 fl (7.2-11.7); MONO # 0.4 K/uL (0.0-0.8); MONO % 8.1 % (0.0-10.0); NEUT # 3.4 K/uL (1.8-7.0); NEUT % 66.6 % (50.0-75.0); NRBC % 0.4 % (0.0-0.0); RBC 3.37 Mil/uL (4.40-5.90); RED CELL DISTRIBUTION WIDTH 18.7 % (11.5-14.5); WHITE BLOOD COUNT 5.1 K/uL (4.8-10.8)
[2017-07-20 06:15] LABS: ALB/GLOB RATIO 0.8 (1.0-2.1); ALBUMIN 2.4 g/dL (3.5-5.0); CALCIUM 7.3 mg/dL (8.4-10.2)
--- NOTE | 2017-07-20 08:37 | RAD ---
PROCEDURE: CHEST RADIOGRAPH, 1 VIEW HISTORY: Pleural effusion COMPARISON: Portable chest 07/19/2017 FINDINGS: 2 right chest tubes are unchanged in position as well as left central venous line. LUNGS: Borderline patchy density is question at the inferior right lung zone with left basilar atelectasis or infiltrate persisting. PLEURA: Moderate left pleural effusion unchanged. Trace right pleural effusion remaining with limited fluid seen in the minor fissure. No pneumothorax bilaterally. CARDIOVASCULAR: Cardiomegaly stable. No pulmonary vascular derangement appreciated this time. OSSEOUS STRUCTURES: No significant abnormalities. VISUALIZED UPPER ABDOMEN: Normal. OTHER FINDINGS: None. IMPRESSION: No signal change in moderate left and minimal right pleural effusions and underlying atelectasis or infiltrate at the left base, with trace patchy density remaining at the right base.
--- NOTE | 2017-07-20 08:52 | CP.PCM.PN ---
Subjective - Date & Time of Evaluation Date of Evaluation: 07/20/17 Time of Evaluation: 07:30 - Subjective Subjective: No interval events overnight Vital Signs: 36.3- 67- 149/67- 16- 99% (Hi-Blue 60%) Hi-Blue: 60% FiO2 Chest Tube Rt Post: 430ml total Chest Tube Rt Ant: 145ml LEFT subclavian: patent, non-erythematous IVF @ 80cc/hr (as per Nephrology) Salazar Catheter: Cloudy, yellow urine 66M easily awakened on entering the room. Patient is verbal and voice is stronger. He denies pain at RIGHT chest wall this morning, denies SOB, N/V, or having any BMs. States he feels "tired". Otherwise, wanted to know the plan which was discussed. Otherwise no acute complaints. Objective - Vital Signs/Intake and Output Vital Signs (last 24 hours): Temp Pulse Resp BP Pulse Ox 36.3 C L 71 24 149/67 98 07/20/17 08:00 07/20/17 08:00 07/20/17 08:00 07/20/17 08:00 07/20/17 08:00 Intake and Output: 07/20/17 07/20/17 06:59 18:59 Intake Total 980 160 Output Total 1385 Balance -405 160 - Medications Medications: Current Medications Albuterol/Ipratropium (Duoneb 3 Mg/0.5 Mg (3 Ml) Ud) 3 ml INH RQ6 [facility] Last Admin: 07/20/17 07:21 Dose: 3 ml Amlodipine Besylate (Norvasc) 5 mg PO Q12H [facility] Aspirin (Ecotrin) 81 mg PO DAILY [facility] Last Admin: 07/18/17 09:23 Dose: Not Given Bacitracin (Bacitracin Oint) 1 applic TOP DAILY [facility] Last Admin: 07/19/17 08:27 Dose: Not Given Calcium Acetate (Phoslo) 2,001 mg PO 0830,1200,1830 [facility] Last Admin: 07/14/17 12:26 Dose: 2,001 mg Dextrose (Dextrose 50% Inj) 0 ml IV STAT PRN; Protocol PRN Reason: Hypoglycemia Protocol Dextrose (Glutose 15) 0 gm PO ONCE PRN; Protocol PRN Reason: Hypoglycemia Protocol Dextrose (Dextrose 50% Inj) 50 ml IVP Q1H PRN PRN Reason: Hypoglycemia Epoetin Roel (Procrit) 14,000 unit SC MWF [facility] Last Admin: 07/16/17 09:50 Dose: 14,000 unit Fluconazole (Diflucan) 200 mg PO DAILY [facility] PRN Reason: Protocol Last Admin: 07/19/17 08:13 Dose: 200 mg Glucagon (Glucagen Diagnostic Kit) 0 mg IM STAT PRN; Protocol PRN Reason: Hypoglycemia Protocol Heparin Sodium (Porcine) (Heparin) 5,000 units SC Q12 [facility] PRN Reason: Protocol Last Admin: 07/19/17 20:04 Dose: 5,000 units Hydralazine HCl (Apresoline) 50 mg PO Q8 [facility] Last Admin: 07/20/17 00:07 Dose: 50 mg Levetiracetam 500 mg/ Sodium (Chloride) 105 mls @ 210 mls/hr IVPB Q12 [facility] Last Admin: 07/19/17 20:04 Dose: 210 mls/hr Cefepime HCl 1 gm/ Sodium (Chloride) 50 mls @ 50 mls/hr IVPB DAILY [facility] PRN Reason: Protocol Last Admin: 07/19/17 08:30 Dose: 50 mls/hr Sodium Chloride (Sodium Chloride 0.45%) 1,000 mls @ 80 mls/hr IV .[id number] [facility] Stop: 07/20/17 13:22 Last Admin: 07/20/17 03:00 Dose: 80 mls/hr Insulin Human Lispro (Humalog) 0 units SC Q6H [facility] PRN Reason: Protocol Last Admin: 07/20/17 04:00 Dose: Not Given Levothyroxine Sodium (Synthroid) 50 mcg PO DAILY@0630 [facility] Last Admin: 07/20/17 05:42 Dose: 50 mcg Lisinopril (Zestril) 40 mg PO DAILY [facility] Last Admin: 07/19/17 16:21 Dose: 40 mg Morphine Sulfate (Morphine) 2 mg IVP Q6 PRN PRN Reason: Pain, severe (8-10) Last Admin: 07/20/17 04:08 Dose: 2 mg Morphine Sulfate (Morphine) 1 mg IVP Q4 [facility] Last Admin: 07/20/17 05:09 Dose: Not Given Pantoprazole Sodium (Protonix Inj) 40 mg IVP Q12 [facility] Last Admin: 07/19/17 20:06 Dose: 40 mg Sodium Bicarbonate (Sodium Bicarbonate Tab) 1,300 mg PO Q8 [facility] Last Admin: 07/02/17 16:23 Dose: 1,300 mg Thiamine HCl (Vitamin B1 Tab) 100 mg PO DAILY [facility] Last Admin: 07/19/17 08:29 Dose: 100 mg - Labs Labs: 07/20/17 05:31 07/20/17 05:31 PT 15.3 Seconds (9.8-13.1) H 07/18/17 05:30 INR 1.4 (0.9-1.2) H 07/18/17 05:30 APTT 34.2 Seconds (25.6-37.1) 07/18/17 05:30 - Constitutional Appears: Non-toxic, No Acute Distress, Older Than Stated Age, Cachectic, Chronically Ill - Head Exam Head Exam: ATRAUMATIC, NORMAL INSPECTION - Eye Exam Eye Exam: EOMI, Normal appearance - ENT Exam ENT Exam: Mucous Membranes Dry (Likely due to oxygen) - Neck Exam Neck Exam: Full ROM (Quite Weak), Normal Inspection - Respiratory Exam Respiratory Exam: Decreased Breath Sounds (LEFT lower there are no breath sounds except transmittance), NORMAL BREATHING PATTERN. absent: Chest Wall Tenderness (LEFT subclavian: non-erythematous, patent, non-edematous), Wheezes - Cardiovascular Exam Cardiovascular Exam: REGULAR RHYTHM. absent: JVD - GI/Abdominal Exam GI & Abdominal Exam: Soft. absent: Tenderness, Normal Bowel Sounds (hypoactive) - Extremities Exam Extremities Exam: Normal Capillary Refill, Pedal Edema (b/l upper extremities more edematous than lower and scrotum). absent: Full ROM (Significant deconditioning) - Back Exam Back Exam: absent: NORMAL INSPECTION (skin tears x2 to lower lumbar area as per nursing, reddened area at sacrum that appears to be healing) - Neurological Exam Neurological Exam: Alert, Awake - Psychiatric Exam Psychiatric exam: Normal Affect - Skin Skin Exam: Dry, Warm Assessment and Plan - Assessment and Plan (Free Text) Assessment: 66M with multiple co-morbidities currently stabilized. Goals at this time are to begin strengthening and nutrition. Plan: 1) Acute Respiratory Failure- tenuous condition given condition of renalpulmonary - Trial of Hi-Blue 40% today (Currently 60%) - Surgery to manage Chest Tubes x2 on RIGHT, may see if one can be positioned along diaphragm as there is evidence of inadequate expansion and worsening opacities. Due to current condition not a good candidate for treating LEFT loculation aggressively - c/w Diflucan - CXR today: No changes (still moderate LEFT effusion with underlying atelectasis/infiltrate - Pulmonology Consult (Dr Raymond) appreciated: f/u recs 2) Recurrent Pleural Effusions, Transudate- loculated on LEFT, CT x2 on RIGHT. Effusions thought to be secondary to nephrotic syndrome. - Pulmonology: no benefit for bronchoscopy - CT Surgery: No aggressive intervention at this time for LEFT pleural effusion , RIGHT lung bx- fragments of fibroadipose tissue and skeletal muscle with intraparenchymal hemorrhage - TB ruled out 3) Hypernatremia- Improving - f/u BMP 4) HAP- improved -ID consultation (Dr Dolan) appreciated - c/w cefepime day 5) DM nephropathy -Kidney biopsy 06/05/17: Diabetic nephropathy, nodular glomerulosclerosis, associated with aprox 40 % globally sclerosed glomeruli( calss III), 10-15 % segmentally sclerosed glomeruli, docal moderate interstitial fibrosis and mod vascular sclerosis, including marked hyaline arteriolosclerosis.NO EVIDENCE OF MONOCLONAL LIGHT OR HEAVY CHAIN-RELATED RENAL DISEASE. Renal duplex: no renal vein thrombosis -Nephrology Consult appreciated: re-starting Hydralazine/Lisinopril with progression to Aldactone and ?Cardizem to control -Renal duplex: no renal vein thrombosis 6) CHINTAN on CKD stage 4- Improved, stable - Monitor BUN/Cr stable - Nephorologist consult appreciated 7) Hypothyroidism, subclinical - Econdrinologist consult appreciated - c/w levothryroxin 50 mcg daily 8) Hyperprolactinemia -Prolactin trending down last 27.1 -Endocrionologist consult appreciated -MRI brain:no inracraneal hemorrhage, chronic lacunar infarct b/l cerebral, changes in dali haydee represent chronic ischemia or sequela of osmotic myelonilolysis not excluded.chronic b/l basal nuclei lacunar infarcts, mastoid ppasification secondary to intubation 9) Pressure Ulcer and TDI -improving 10) pEF CHF - Echo 05/31/17 normal EF 60-65% - Will discuss b-tamara and Aldactone with biazzi nitrator operator 11) DM 2 -SSI 12) HTN - Hydralazine 50 Q8 - Lisinopril 40mg, Daily - Norvasc 5mg, Q12H (d/w biazzi nitrator operator) 13) Anemia- stable - secondary to CKD - c/w Procrit MWF 14) DVT prophylaxis - Heparin 5,000U, SC, Q12H 15) GI prophylaxis -Pantoprazol 40 mg IV
--- NOTE | 2017-07-20 09:11 | CP.CCUPN ---
CCU Subjective - Physician Review Events Since Last Encounter (Free Text): 07/20/17 09:08 alert an awake, no sob, able to swallow tablets now, BP sligtly high, strill draining from rt chest tubes, left side, has pleural effusion too. On hypotonic fluid ( 07/01 ) NS serum sodium is improving slowly, now 127. D5w was not give due to high BS. CCU Objective - Vital Signs / Intake & Output Vital Signs (Last 4 hours): Vital Signs Temp Pulse Resp BP Pulse Ox 07/20/17 08:00 97.4 F L 71 24 149/67 98 07/20/17 07:46 78 22 137/63 99 07/20/17 06:00 68 20 164/75 H 98 07/20/17 05:42 71 174/96 H Intake and Output (Last 8hrs): Intake & Output 07/19/17 07/20/17 07/20/17 22:59 06:59 14:59 Intake Total 660 640 160 Output Total 1010 1135 Balance -350 -495 160 Weight 148 lb 1 oz Intake: IV 560 640 160 Intake, Piggyback 100 Oral 0 Output: Chest Tube Drainage 660 685 Right Anterior Chest 0 10 Right Posterior Chest 660 675 Urine 350 450 Urethral (Salazar) 350 450 - Physical Exam Narrative Physical Exam (Free Text): 07/20/17 09:11 P/E Neck: No JVD Lungs: decreased breath sounds, left base Heart: N gallop Abdomen : soft, no tenders Ext:+1 edema Head: Positive for: Atraumatic, Normocephalic Pupils: Positive for: PERRL Conjunctiva: Positive for: Normal. Negative for: Icteric Mouth: Positive for: Moist Mucous Membranes. Negative for: Dry, Drooling Nose (External): Negative for: Lesions Neck: Positive for: Other (central line: left neck in place with dressing, biopatch still over line. clean and dry.) Respiratory/Chest: Positive for: Clear to Auscultation (right chest with good air entry), Decreased Breath Sounds (right lung base), Other (left chest: no breath sounds entire lung field, +dullness to percussion entire lung field.). Negative for: Respiratory Distress, Wheezes, Tachypneic Cardiovascular: Positive for: Regular Rate and Rhythm, Normal S1, S2. Negative for: Tachycardic, Bradycardic Abdomen: Positive for: Other (soft). Negative for: Tenderness, Distention Genitourinary Male: Positive for: Penile Swelling, Testicle Swelling Upper Extremity: Positive for: Edema (bilateral 2+ pitting edema; right > left) Lower Extremity: Positive for: Normal Inspection. Negative for: Edema, Tenderness Neurological: Positive for: Other (unable to speak clearly.) Skin: Positive for: Warm, Dry, Other (skin tear back of left hand) Psychiatric: Positive for: Depressed Mood - Medications Active Medications: Active Medications Generic Name Dose Route Start Last Admin Trade Name Freq PRN Reason Stop Dose Admin Albuterol/Ipratropium 3 ml 07/18/17 14:00 07/20/17 07:21 Duoneb 3 Mg/0.5 Mg (3 Ml) Ud INH 3 ml RQ6 [facility] Administration Amlodipine Besylate 5 mg 07/20/17 08:45 Norvasc PO Q12H [facility] Aspirin 81 mg 07/14/17 09:00 07/18/17 09:23 Ecotrin PO Not Given DAILY [facility] Bacitracin 1 applic 07/11/17 09:00 07/19/17 08:27 Bacitracin Oint TOP Not Given DAILY [facility] Calcium Acetate 2,001 mg 07/05/17 08:30 07/14/17 12:26 Phoslo PO 2,001 mg 0830,1200,1830 [facility] Administration Dextrose 0 ml 06/22/17 22:36 Dextrose 50% Inj IV STAT PRN Hypoglycemia Protocol Protocol Dextrose 0 gm 06/22/17 22:36 Glutose 15 PO ONCE PRN Hypoglycemia Protocol Protocol Dextrose 50 ml 07/14/17 14:52 Dextrose 50% Inj IVP Q1H PRN Hypoglycemia Epoetin Roel 14,000 unit 07/07/17 09:00 07/16/17 09:50 Procrit SC 14,000 unit MWF [facility] Administration Fluconazole 200 mg 07/12/17 09:00 07/19/17 08:13 Diflucan PO 200 mg DAILY [facility] Administration Protocol Glucagon 0 mg 06/22/17 22:36 Glucagen Diagnostic Kit IM STAT PRN Hypoglycemia Protocol Protocol Heparin Sodium (Porcine) 5,000 units 07/17/17 21:00 07/19/17 20:04 Heparin SC 5,000 units Q12 [facility] Administration Protocol Hydralazine HCl 50 mg 07/19/17 13:24 07/20/17 00:07 Apresoline PO 50 mg Q8 [facility] Administration Levetiracetam 500 mg/ Sodium 105 mls @ 210 mls/hr 07/04/17 21:00 07/19/17 20: 04 Chloride IVPB 210 mls/hr Q12 [facility] Administration Cefepime HCl 1 gm/ Sodium 50 mls @ 50 mls/hr 07/13/17 09:00 07/19/17 08:30 Chloride IVPB 50 mls/hr DAILY [facility] Administration Protocol Sodium Chloride 1,000 mls @ 80 mls/hr 07/19/17 13:30 07/20/17 03:00 Sodium Chloride 0.45% IV 07/20/17 13:22 80 mls/hr .[id number] [facility] Administration Insulin Human Lispro 0 units 07/12/17 09:45 07/20/17 04:00 Humalog SC Not Given Q6H [facility] Protocol Levothyroxine Sodium 50 mcg 07/05/17 06:30 07/20/17 05:42 Synthroid PO 50 mcg DAILY@0630 [facility] Administration Lisinopril 40 mg 07/19/17 12:45 07/19/17 16:21 Zestril PO 40 mg DAILY [facility] Administration Morphine Sulfate 2 mg 07/18/17 14:19 07/20/17 04:08 Morphine IVP 2 mg Q6 PRN Administration Pain, severe (8-10) Morphine Sulfate 1 mg 07/19/17 17:00 07/20/17 05:09 Morphine IVP Not Given Q4 [facility] Pantoprazole Sodium 40 mg 07/08/17 21:00 07/19/17 20:06 Protonix Inj IVP 40 mg Q12 [facility] Administration Sodium Bicarbonate 1,300 mg 06/30/17 17:00 07/02/17 16:23 Sodium Bicarbonate Tab PO 1,300 mg Q8 [facility] Administration Thiamine HCl 100 mg 07/15/17 09:00 07/19/17 08:29 Vitamin B1 Tab PO 100 mg DAILY [facility] Administration - Patient Studies Lab Studies: Microbiology Studies 07/15/17 09:00 Fungal Culture - Preliminary Hemovac Tip 06/25/17 16:51 Mycobacterial Culture - Preliminary Other: Please Indicate Lab Studies 07/20/17 07/20/17 07/20/17 Range/Units 05:31 05:31 05:00 WBC 5.1 (4.8-10.8) K/uL RBC 3.37 L (4.40-5.90) Mil/uL Hgb 9.7 L (12.0-18.0) g/dL Hct 31.8 L (35.0-51.0) % MCV 94.3 H (80.0-94.0) fl MCH 28.8 (27.0-31.0) pg MCHC 30.5 L (33.0-37.0) g/dL RDW 18.7 H (11.5-14.5) % Plt Count 323 (130-400) K/uL MPV 9.4 (7.2-11.7) fl Neut % (Auto) 66.6 (50.0-75.0) % Lymph % (Auto) 17.9 L (20.0-40.0) % Billings % (Auto) 8.1 (0.0-10.0) % Eos % (Auto) 5.9 H (0.0-4.0) % Baso % (Auto) 1.5 (0.0-2.0) % Neut # 3.4 (1.8-7.0) K/uL Lymph # 0.9 L (1.0-4.3) K/uL Billings # 0.4 (0.0-0.8) K/uL Eos # 0.3 (0.0-0.7) K/uL Baso # 0.1 (0.0-0.2) K/uL Sodium 147 (132-148) mmol/l Potassium 3.9 (3.6-5.0) MMOL/L Chloride 118 H (98-107) mmol/L Carbon Dioxide 21 L (22-30) mmol/L Anion Gap 12 (10-20) BUN 27 H (9-20) mg/dl Creatinine 1.9 H (0.8-1.5) mg/dl Est GFR ( Amer) 43 Est GFR (Non-Af Amer) 36 POC Glucose (mg/dL) 99 (65-110) mg/dL Random Glucose 100 (75-110) mg/dL Calcium 7.3 L (8.4-10.2) mg/dL Total Bilirubin 0.4 (0.2-1.3) mg/dl AST 14 L D (17-59) U/L ALT 33 (21-72) U/L Alkaline Phosphatase 140 H (38-126) U/L Total Protein 5.2 L (6.3-8.2) G/DL Albumin 2.4 L (3.5-5.0) g/dL Globulin 2.8 (2.2-3.9) gm/dL Albumin/Globulin Ratio 0.8 L (1.0-2.1) Prolactin (3.7-17.9) ng/mL 07/19/17 07/19/17 07/19/17 Range/Units 22:28 15:41 13:04 WBC (4.8-10.8) K/uL RBC (4.40-5.90) Mil/uL Hgb (12.0-18.0) g/dL Hct (35.0-51.0) % MCV (80.0-94.0) fl MCH (27.0-31.0) pg MCHC (33.0-37.0) g/dL RDW (11.5-14.5) % Plt Count (130-400) K/uL MPV (7.2-11.7) fl Neut % (Auto) (50.0-75.0) % Lymph % (Auto) (20.0-40.0) % Billings % (Auto) (0.0-10.0) % Eos % (Auto) (0.0-4.0) % Baso % (Auto) (0.0-2.0) % Neut # (1.8-7.0) K/uL Lymph # (1.0-4.3) K/uL Billings # (0.0-0.8) K/uL Eos # (0.0-0.7) K/uL Baso # (0.0-0.2) K/uL Sodium (132-148) mmol/l Potassium (3.6-5.0) MMOL/L Chloride (98-107) mmol/L Carbon Dioxide (22-30) mmol/L Anion Gap (10-20) BUN (9-20) mg/dl Creatinine (0.8-1.5) mg/dl Est GFR ( Amer) Est GFR (Non-Af Amer) POC Glucose (mg/dL) 118 H 163 H (65-110) mg/dL Random Glucose (75-110) mg/dL Calcium (8.4-10.2) mg/dL Total Bilirubin (0.2-1.3) mg/dl AST (17-59) U/L ALT (21-72) U/L Alkaline Phosphatase (38-126) U/L Total Protein (6.3-8.2) G/DL Albumin (3.5-5.0) g/dL Globulin (2.2-3.9) gm/dL Albumin/Globulin Ratio (1.0-2.1) Prolactin 27.1 H (3.7-17.9) ng/mL 07/19/17 Range/Units 09:44 WBC (4.8-10.8) K/uL RBC (4.40-5.90) Mil/uL Hgb (12.0-18.0) g/dL Hct (35.0-51.0) % MCV (80.0-94.0) fl MCH (27.0-31.0) pg MCHC (33.0-37.0) g/dL RDW (11.5-14.5) % Plt Count (130-400) K/uL MPV (7.2-11.7) fl Neut % (Auto) (50.0-75.0) % Lymph % (Auto) (20.0-40.0) % Billings % (Auto) (0.0-10.0) % Eos % (Auto) (0.0-4.0) % Baso % (Auto) (0.0-2.0) % Neut # (1.8-7.0) K/uL Lymph # (1.0-4.3) K/uL Billings # (0.0-0.8) K/uL Eos # (0.0-0.7) K/uL Baso # (0.0-0.2) K/uL Sodium (132-148) mmol/l Potassium (3.6-5.0) MMOL/L Chloride (98-107) mmol/L Carbon Dioxide (22-30) mmol/L Anion Gap (10-20) BUN (9-20) mg/dl Creatinine (0.8-1.5) mg/dl Est GFR ( Amer) Est GFR (Non-Af Amer) POC Glucose (mg/dL) 195 H (65-110) mg/dL Random Glucose (75-110) mg/dL Calcium (8.4-10.2) mg/dL Total Bilirubin (0.2-1.3) mg/dl AST (17-59) U/L ALT (21-72) U/L Alkaline Phosphatase (38-126) U/L Total Protein (6.3-8.2) G/DL Albumin (3.5-5.0) g/dL Globulin (2.2-3.9) gm/dL Albumin/Globulin Ratio (1.0-2.1) Prolactin (3.7-17.9) ng/mL Laboratory Results - last 24 hr 07/19/17 07/19/17 07/19/17 09:44 13:04 15:41 WBC RBC Hgb Hct MCV MCH MCHC RDW Plt Count MPV Neut % (Auto) Lymph % (Auto) Billings % (Auto) Eos % (Auto) Baso % (Auto) Neut # Lymph # Billings # Eos # Baso # Sodium Potassium Chloride Carbon Dioxide Anion Gap BUN Creatinine Est GFR ( Amer) Est GFR (Non-Af Amer) POC Glucose (mg/dL) 195 H 163 H Random Glucose Calcium Total Bilirubin AST ALT Alkaline Phosphatase Total Protein Albumin Globulin Albumin/Globulin Ratio Prolactin 27.1 H 07/19/17 07/20/17 07/20/17 22:28 05:00 05:31 WBC 5.1 RBC 3.37 L Hgb 9.7 L Hct 31.8 L MCV 94.3 H MCH 28.8 MCHC 30.5 L RDW 18.7 H Plt Count 323 MPV 9.4 Neut % (Auto) 66.6 Lymph % (Auto) 17.9 L Billings % (Auto) 8.1 Eos % (Auto) 5.9 H Baso % (Auto) 1.5 Neut # 3.4 Lymph # 0.9 L Billings # 0.4 Eos # 0.3 Baso # 0.1 Sodium Potassium Chloride Carbon Dioxide Anion Gap BUN Creatinine Est GFR ( Amer) Est GFR (Non-Af Amer) POC Glucose (mg/dL) 118 H 99 Random Glucose Calcium Total Bilirubin AST ALT Alkaline Phosphatase Total Protein Albumin Globulin Albumin/Globulin Ratio Prolactin 07/20/17 05:31 WBC RBC Hgb Hct MCV MCH MCHC RDW Plt Count MPV Neut % (Auto) Lymph % (Auto) Billings % (Auto) Eos % (Auto) Baso % (Auto) Neut # Lymph # Billings # Eos # Baso # Sodium 147 Potassium 3.9 Chloride 118 H Carbon Dioxide 21 L Anion Gap 12 BUN 27 H Creatinine 1.9 H Est GFR ( Amer) 43 Est GFR (Non-Af Amer) 36 POC Glucose (mg/dL) Random Glucose 100 Calcium 7.3 L Total Bilirubin 0.4 AST 14 L D ALT 33 Alkaline Phosphatase 140 H Total Protein 5.2 L Albumin 2.4 L Globulin 2.8 Albumin/Globulin Ratio 0.8 L Prolactin Fingerstick Blood Sugar Results: 99 Critical Care Progress Note - Nutrition Nutrition: Nutrition Category Date Time Status Dysphagia/Modified Consistency Diet [DIET] Diets 07/18/17 Dinner Active Assessment/Plan - Assessment and Plan (Free Text) Assessment: CHINTAN with h/o CKD: CHINTAN/AMS have resolved however patient then had subsequent respiratory failure requiring intubation thought to be 2' to persistent pleural effusions bilaterally vs PNA. Alert and awake. On High flow. Whiteout of left hemithorax. Repeated CXR this afternoon from this morning reviewed, has left sided pleural effusion also. Monitor respiratory status. Resp Failure: COPD, pleural effusion, s/p rt sided chest tube, has opaque right lung 07/18: no expanded. Hypernatremia: improving with IVF, will decrease to 80 cc/h, 1/2 with 20 kcl, NA today 147 CKD-3B, with nephrotic syndrom, h/o monoclonal gammopathy: renal function stable HTN: Not well control , On PO meds now, on lisinopril 40 mg and added Amlodipine 5 mg po q 12 H with holding parameters. Neuro: Awake and alert. Following commands. On Keppra. GI: Protonix for prophylaxis, swallow eval. Consider OG tube if does not pass swallow test. Endocrine: - DM 2, blood glucose monitoring, sliding scale insulin, hypothyroidism: on synthroid. Dr. Mann is following. Heme: -Anemia of chronic disease: hg 8.9 ID: Cefepime, po diflucan. Trachasp culture: Yeast species (07/14/17) Prophylaxis: DVT: SCDS, Heparin started 07/17/17 GI: Protonix
--- NOTE | 2017-07-20 09:20 | CP.PCM.PN ---
Subjective - Date & Time of Evaluation Date of Evaluation: 07/20/17 Time of Evaluation: 13:34 - Subjective Subjective: Ct Sx: Dr Gannon Pt S&E. No acute distress. Pt states he is comfortable. Dressings are clean and being changed by nursing. Left lung reaccumulating effusion Right side with ~670cc/24 hours PLAN: given pts respiratory status would rather avoid re-intubation and further OR procedures i.e. pleurodesis will follow and awaiting CCB/aldactone/lioop diuretics as per nephology to see if this helps reduce output will d/w Dr Gannon Objective - Vital Signs/Intake and Output Vital Signs (last 24 hours): Temp Pulse Resp BP Pulse Ox 97.4 F L 71 24 149/67 98 07/20/17 08:00 07/20/17 08:00 07/20/17 08:00 07/20/17 08:00 07/20/17 08:00 Intake and Output: 07/20/17 07/20/17 06:59 18:59 Intake Total 980 160 Output Total 1385 Balance -405 160 - Medications Medications: Current Medications Albuterol/Ipratropium (Duoneb 3 Mg/0.5 Mg (3 Ml) Ud) 3 ml INH RQ6 [facility] Last Admin: 07/20/17 07:21 Dose: 3 ml Amlodipine Besylate (Norvasc) 5 mg PO Q12H [facility] Aspirin (Ecotrin) 81 mg PO DAILY [facility] Last Admin: 07/18/17 09:23 Dose: Not Given Bacitracin (Bacitracin Oint) 1 applic TOP DAILY [facility] Last Admin: 07/19/17 08:27 Dose: Not Given Calcium Acetate (Phoslo) 2,001 mg PO 0830,1200,1830 [facility] Last Admin: 07/14/17 12:26 Dose: 2,001 mg Dextrose (Dextrose 50% Inj) 0 ml IV STAT PRN; Protocol PRN Reason: Hypoglycemia Protocol Dextrose (Glutose 15) 0 gm PO ONCE PRN; Protocol PRN Reason: Hypoglycemia Protocol Dextrose (Dextrose 50% Inj) 50 ml IVP Q1H PRN PRN Reason: Hypoglycemia Epoetin Roel (Procrit) 14,000 unit SC MWF [facility] Last Admin: 07/16/17 09:50 Dose: 14,000 unit Fluconazole (Diflucan) 200 mg PO DAILY [facility] PRN Reason: Protocol Last Admin: 07/19/17 08:13 Dose: 200 mg Glucagon (Glucagen Diagnostic Kit) 0 mg IM STAT PRN; Protocol PRN Reason: Hypoglycemia Protocol Heparin Sodium (Porcine) (Heparin) 5,000 units SC Q12 [facility] PRN Reason: Protocol Last Admin: 07/19/17 20:04 Dose: 5,000 units Hydralazine HCl (Apresoline) 50 mg PO Q8 [facility] Last Admin: 07/20/17 00:07 Dose: 50 mg Levetiracetam 500 mg/ Sodium (Chloride) 105 mls @ 210 mls/hr IVPB Q12 [facility] Last Admin: 07/19/17 20:04 Dose: 210 mls/hr Cefepime HCl 1 gm/ Sodium (Chloride) 50 mls @ 50 mls/hr IVPB DAILY [facility] PRN Reason: Protocol Last Admin: 07/19/17 08:30 Dose: 50 mls/hr Sodium Chloride (Sodium Chloride 0.45%) 1,000 mls @ 80 mls/hr IV .[id number] [facility] Stop: 07/20/17 13:22 Last Admin: 07/20/17 03:00 Dose: 80 mls/hr Insulin Human Lispro (Humalog) 0 units SC Q6H [facility] PRN Reason: Protocol Last Admin: 07/20/17 04:00 Dose: Not Given Levothyroxine Sodium (Synthroid) 50 mcg PO DAILY@0630 [facility] Last Admin: 07/20/17 05:42 Dose: 50 mcg Lisinopril (Zestril) 40 mg PO DAILY [facility] Last Admin: 07/19/17 16:21 Dose: 40 mg Morphine Sulfate (Morphine) 2 mg IVP Q6 PRN PRN Reason: Pain, severe (8-10) Last Admin: 07/20/17 04:08 Dose: 2 mg Morphine Sulfate (Morphine) 1 mg IVP Q4 [facility] Last Admin: 07/20/17 05:09 Dose: Not Given Pantoprazole Sodium (Protonix Inj) 40 mg IVP Q12 [facility] Last Admin: 07/19/17 20:06 Dose: 40 mg Sodium Bicarbonate (Sodium Bicarbonate Tab) 1,300 mg PO Q8 [facility] Last Admin: 07/02/17 16:23 Dose: 1,300 mg Thiamine HCl (Vitamin B1 Tab) 100 mg PO DAILY [facility] Last Admin: 07/19/17 08:29 Dose: 100 mg - Labs Labs: 07/20/17 05:31 07/20/17 05:31 PT 15.3 Seconds (9.8-13.1) H 07/18/17 05:30 INR 1.4 (0.9-1.2) H 07/18/17 05:30 APTT 34.2 Seconds (25.6-37.1) 07/18/17 05:30 - Constitutional Appears: No Acute Distress, Chronically Ill - ENT Exam ENT Exam: Mucous Membranes Dry - Respiratory Exam Respiratory Exam: absent: Accessory Muscle Use, Respiratory Distress - Cardiovascular Exam Cardiovascular Exam: REGULAR RHYTHM. absent: Tachycardia Additional comments: ct w/ 670 serosanguinous, no air leak - Neurological Exam Neurological Exam: Alert, Awake - Psychiatric Exam Psychiatric exam: Normal Affect, Normal Mood - Skin Skin Exam: Normal Color
[2017-07-20] MEDS: Bacitracin OINT 15GM TOP SCH (09:21)
[2017-07-20] MEDS: levETIRAcetam 500 MG in Sodium Chloride 0.9% 100 ML IVPB SCH ×2 (09:22→20:47)
[2017-07-20] MEDS: Cefepime 1 GM in Sodium Chloride 0.9% 50 ML IVPB SCH (09:23)
--- NOTE | 2017-07-20 11:14 | CP.PCM.PN ---
Subjective - Date & Time of Evaluation Date of Evaluation: 07/20/17 Time of Evaluation: 11:14 - Subjective Subjective: NO NEW CLINICAL FINDINGS CXR SHOWS WORSENING L PLEURAL EFFUSION PLEURAL EFFUSIONS FLORIAN WORSEN OR PERSIST DUE TO NEPHROTIC SYNDROME WILL CONTINUE SAME RX Objective - Vital Signs/Intake and Output Vital Signs (last 24 hours): Temp Pulse Resp BP Pulse Ox 97.4 F L 69 19 149/64 100 07/20/17 08:00 07/20/17 10:00 07/20/17 10:00 07/20/17 10:00 07/20/17 10:00 Intake and Output: 07/20/17 07/20/17 06:59 18:59 Intake Total 980 790 Output Total 1385 Balance -405 790 - Medications Medications: Current Medications Albuterol/Ipratropium (Duoneb 3 Mg/0.5 Mg (3 Ml) Ud) 3 ml INH RQ6 [facility] Last Admin: 07/20/17 07:21 Dose: 3 ml Amlodipine Besylate (Norvasc) 5 mg PO Q12H [facility] Aspirin (Ecotrin) 81 mg PO DAILY [facility] Last Admin: 07/18/17 09:23 Dose: Not Given Bacitracin (Bacitracin Oint) 1 applic TOP DAILY [facility] Last Admin: 07/20/17 09:21 Dose: 1 applic Calcium Acetate (Phoslo) 2,001 mg PO 0830,1200,1830 [facility] Last Admin: 07/14/17 12:26 Dose: 2,001 mg Dextrose (Dextrose 50% Inj) 0 ml IV STAT PRN; Protocol PRN Reason: Hypoglycemia Protocol Dextrose (Glutose 15) 0 gm PO ONCE PRN; Protocol PRN Reason: Hypoglycemia Protocol Dextrose (Dextrose 50% Inj) 50 ml IVP Q1H PRN PRN Reason: Hypoglycemia Epoetin Roel (Procrit) 14,000 unit SC MWF [facility] Last Admin: 07/16/17 09:50 Dose: 14,000 unit Fluconazole (Diflucan) 200 mg PO DAILY [facility] PRN Reason: Protocol Last Admin: 07/20/17 09:21 Dose: 200 mg Glucagon (Glucagen Diagnostic Kit) 0 mg IM STAT PRN; Protocol PRN Reason: Hypoglycemia Protocol Heparin Sodium (Porcine) (Heparin) 5,000 units SC Q12 [facility] PRN Reason: Protocol Last Admin: 07/20/17 09:22 Dose: 5,000 units Hydralazine HCl (Apresoline) 50 mg PO Q8 [facility] Last Admin: 07/20/17 09:20 Dose: 50 mg Levetiracetam 500 mg/ Sodium (Chloride) 105 mls @ 210 mls/hr IVPB Q12 [facility] Last Admin: 07/20/17 09:22 Dose: 210 mls/hr Cefepime HCl 1 gm/ Sodium (Chloride) 50 mls @ 50 mls/hr IVPB DAILY [facility] PRN Reason: Protocol Last Admin: 07/20/17 09:23 Dose: 50 mls/hr Sodium Chloride (Sodium Chloride 0.45%) 1,000 mls @ 80 mls/hr IV .[id number] [facility] Stop: 07/20/17 13:22 Last Admin: 07/20/17 03:00 Dose: 80 mls/hr Insulin Human Lispro (Humalog) 0 units SC Q6H [facility] PRN Reason: Protocol Last Admin: 07/20/17 09:30 Dose: Not Given Levothyroxine Sodium (Synthroid) 50 mcg PO DAILY@0630 [facility] Last Admin: 07/20/17 05:42 Dose: 50 mcg Lisinopril (Zestril) 40 mg PO DAILY [facility] Last Admin: 07/20/17 09:26 Dose: 40 mg Morphine Sulfate (Morphine) 2 mg IVP Q6 PRN PRN Reason: Pain, severe (8-10) Last Admin: 07/20/17 04:08 Dose: 2 mg Morphine Sulfate (Morphine) 1 mg IVP Q4 [facility] Last Admin: 07/20/17 09:24 Dose: Not Given Pantoprazole Sodium (Protonix Inj) 40 mg IVP Q12 [facility] Last Admin: 07/20/17 09:25 Dose: 40 mg Sodium Bicarbonate (Sodium Bicarbonate Tab) 1,300 mg PO Q8 [facility] Last Admin: 07/02/17 16:23 Dose: 1,300 mg Thiamine HCl (Vitamin B1 Tab) 100 mg PO DAILY [facility] Last Admin: 07/20/17 09:26 Dose: 100 mg - Labs Labs: 07/20/17 05:31 07/20/17 05:31 PT 15.3 Seconds (9.8-13.1) H 07/18/17 05:30 INR 1.4 (0.9-1.2) H 07/18/17 05:30 APTT 34.2 Seconds (25.6-37.1) 07/18/17 05:30
--- NOTE | 2017-07-20 22:39 | PN ---
DATE: ENDOCRINOLOGY FOLLOWUP NOTE LOCATION: In the room 433, ICU. SUBJECTIVE: This is a 66-year-old male with recent uncontrolled type 2 diabetes, now presenting here with acute respiratory failure and reintubation with worsening pleural effusion, especially on the left side as noted and is now being followed closely for metabolic management. He has ongoing right chest tube drainage as noted. His glycemic levels are fluctuating, but much improved at this time. He is now on the high flow oxygen delivery as noted. His latest glucose levels today have ranged from 102 to 129 mg/dL. Latest chemistries show a BUN of 27, sodium 147, potassium 3.9, chloride 118, CO2 of 21, glucose 100, and creatinine 1.9. He remains clinically euthyroid at this time and so, we will repeat thyroid studies and adjust his levothyroxine dose accordingly. For now, we will continue the same dose of 50 mcg daily as given. We will follow with you. Bettina Mann MD
[2017-07-21] MEDS: Albuterol-Ipratrop 3 mg / 0.5 (3 ml) UD INH SCH ×4 (01:00→19:08)
[2017-07-21] MEDS: Morphine 4 MG/ML VIAL IVP SCH ×6 (01:30→21:02)
[2017-07-21] MEDS: Insulin Lispro (humaLOG) 100 Units/ml Inj SC SCH ×4 (04:30→22:07)
[2017-07-21 05:24] LABS: BASO # 0.1 K/uL (0.0-0.2); BASO % 2.8 % (0.0-2.0); EOS # 0.2 K/uL (0.0-0.7); EOS % 4.3 % (0.0-4.0); HEMOGLOBIN 9.8 g/dL (12.0-18.0); LYMPH # 0.8 K/uL (1.0-4.3); LYMPH % 15.2 % (20.0-40.0); MEAN CELL VOLUME 93.8 fl (80.0-94.0); MEAN CORPUSCULAR HEMOGLOBIN 28.8 pg (27.0-31.0); MEAN CORPUSCULAR HGB CONC 30.7 g/dL (33.0-37.0); MEAN PLATELET VOLUME 9.3 fl (7.2-11.7); MONO # 0.5 K/uL (0.0-0.8); NEUT # 3.5 K/uL (1.8-7.0); NEUT % 68.7 % (50.0-75.0); NRBC % 0.3 % (0.0-0.0); RBC 3.42 Mil/uL (4.40-5.90); WHITE BLOOD COUNT 5.1 K/uL (4.8-10.8)
[2017-07-21 05:38] LABS: ALB/GLOB RATIO 0.8 (1.0-2.1); ALBUMIN 2.4 g/dL (3.5-5.0); CALCIUM 7.5 mg/dL (8.4-10.2)
[2017-07-21 05:49] LABS: T4 7.64 ug/dl (5.5-11.0)
[2017-07-21] MEDS: Levothyroxine 50 MCG TAB PO SCH (06:18)
--- NOTE | 2017-07-21 06:18 | CP.PCM.PN ---
Subjective - Date & Time of Evaluation Date of Evaluation: 07/20/17 Time of Evaluation: 12:00 - Subjective Subjective: Patient denies pain; started on PO diet, consumed more than half of it today without incident; still on high flow O2; Objective - Vital Signs/Intake and Output Vital Signs (last 24 hours): Temp Pulse Resp BP Pulse Ox 97.6 F 79 27 H 174/74 H 96 07/21/17 00:00 07/21/17 00:47 07/21/17 05:12 07/21/17 00:47 07/21/17 00:00 Intake and Output: 07/20/17 07/21/17 18:59 06:59 Intake Total 1365 200 Output Total 310 150 Balance 1055 50 - Medications Medications: Current Medications Albuterol/Ipratropium (Duoneb 3 Mg/0.5 Mg (3 Ml) Ud) 3 ml INH RQ6 [facility] Last Admin: 07/21/17 01:00 Dose: 3 ml Amlodipine Besylate (Norvasc) 5 mg PO Q12H [facility] Last Admin: 07/20/17 21:13 Dose: 5 mg Aspirin (Ecotrin) 81 mg PO DAILY [facility] Last Admin: 07/18/17 09:23 Dose: Not Given Bacitracin (Bacitracin Oint) 1 applic TOP DAILY [facility] Last Admin: 07/20/17 09:21 Dose: 1 applic Calcium Acetate (Phoslo) 2,001 mg PO 0830,1200,1830 [facility] Last Admin: 07/14/17 12:26 Dose: 2,001 mg Dextrose (Dextrose 50% Inj) 0 ml IV STAT PRN; Protocol PRN Reason: Hypoglycemia Protocol Dextrose (Glutose 15) 0 gm PO ONCE PRN; Protocol PRN Reason: Hypoglycemia Protocol Dextrose (Dextrose 50% Inj) 50 ml IVP Q1H PRN PRN Reason: Hypoglycemia Epoetin Roel (Procrit) 14,000 unit SC MWF [facility] Last Admin: 07/16/17 09:50 Dose: 14,000 unit Fluconazole (Diflucan) 200 mg PO DAILY [facility] PRN Reason: Protocol Last Admin: 07/20/17 09:21 Dose: 200 mg Furosemide (Lasix) 40 mg IVP BID [facility] Glucagon (Glucagen Diagnostic Kit) 0 mg IM STAT PRN; Protocol PRN Reason: Hypoglycemia Protocol Heparin Sodium (Porcine) (Heparin) 5,000 units SC Q12 [facility] PRN Reason: Protocol Last Admin: 07/20/17 20:46 Dose: 5,000 units Hydralazine HCl (Apresoline) 50 mg PO Q8 [facility] Last Admin: 07/21/17 00:47 Dose: 50 mg Levetiracetam 500 mg/ Sodium (Chloride) 105 mls @ 210 mls/hr IVPB Q12 [facility] Last Admin: 07/20/17 20:47 Dose: 210 mls/hr Cefepime HCl 1 gm/ Sodium (Chloride) 50 mls @ 50 mls/hr IVPB DAILY [facility] PRN Reason: Protocol Last Admin: 07/20/17 09:23 Dose: 50 mls/hr Insulin Human Lispro (Humalog) 0 units SC Q6H [facility] PRN Reason: Protocol Last Admin: 07/20/17 21:58 Dose: Not Given Levothyroxine Sodium (Synthroid) 50 mcg PO DAILY@0630 [facility] Last Admin: 07/20/17 05:42 Dose: 50 mcg Lisinopril (Zestril) 40 mg PO DAILY [facility] Last Admin: 07/20/17 09:26 Dose: 40 mg Morphine Sulfate (Morphine) 2 mg IVP Q6 PRN PRN Reason: Pain, severe (8-10) Last Admin: 07/20/17 04:08 Dose: 2 mg Morphine Sulfate (Morphine) 1 mg IVP Q4 [facility] Last Admin: 07/21/17 01:30 Dose: Not Given Pantoprazole Sodium (Protonix Inj) 40 mg IVP Q12 [facility] Last Admin: 07/20/17 20:48 Dose: 40 mg Sodium Bicarbonate (Sodium Bicarbonate Tab) 1,300 mg PO Q8 [facility] Last Admin: 07/02/17 16:23 Dose: 1,300 mg Thiamine HCl (Vitamin B1 Tab) 100 mg PO DAILY [facility] Last Admin: 07/20/17 09:26 Dose: 100 mg - Labs Labs: 07/21/17 04:20 07/21/17 04:20 PT 15.3 Seconds (9.8-13.1) H 07/18/17 05:30 INR 1.4 (0.9-1.2) H 07/18/17 05:30 APTT 34.2 Seconds (25.6-37.1) 07/18/17 05:30 - Constitutional Appears: Non-toxic, Chronically Ill - Eye Exam Eye Exam: Normal appearance - ENT Exam ENT Exam: absent: Mucous Membranes Moist - Respiratory Exam Additional comments: decreased breath sounds on L; - Cardiovascular Exam Additional comments: muffled heart sounds; - GI/Abdominal Exam GI & Abdominal Exam: Distended, Soft. absent: Tenderness - Extremities Exam Additional comments: markedly edematous - Neurological Exam Neurological Exam: Alert, Awake - Skin Skin Exam: Warm. absent: Cyanosis Assessment and Plan (1) Acute renal failure Assessment & Plan: CHINTAN on CKD; ATN resolved; urine output decreased this morning though serum creatinine stable; concern that patient is intravascularly volume depleted despite being hypertensive; holding off on diuretics for now; holding IVF due to re-accumulation of L pleural fluid; hypernatemia relatively mild ,patient encouraged to drink more water; Status: Acute (2) Nephrotic syndrome Assessment & Plan: On lisinopril 40 mg daily; continue same; Status: Chronic (3) Pleural effusion Status: Chronic (4) Hypertensive CKD (chronic kidney disease) Assessment & Plan: BP elevated, added norvasc today; contnue rest of meds; Status: Acute (5) Chronic kidney disease, stage 3 (moderate) Status: Chronic (6) Hypothermia Status: Acute (7) Altered mental status Status: Acute (8) SIRS (systemic inflammatory response syndrome) Status: Acute (9) Anemia Assessment & Plan: hgb stable, continue EPO three times per week; Status: Chronic (10) Monoclonal gammopathy Status: Chronic
[2017-07-21] MEDS: Sodium Chloride 3% for Inhalation 4 ML VIAL.NEB IH SCH ×2 (07:27→19:09)
[2017-07-21] MEDS: Bacitracin OINT 15GM TOP SCH (08:20)
[2017-07-21] MEDS: levETIRAcetam 500 MG in Sodium Chloride 0.9% 100 ML IVPB SCH ×2 (08:21→20:53)
[2017-07-21] MEDS: Epoetin Alfa 20000 UNIT/ML Inj SC SCH (08:22)
--- NOTE | 2017-07-21 08:23 | CP.PCM.PN ---
Subjective - Date & Time of Evaluation Date of Evaluation: 07/21/17 Time of Evaluation: 07:40 - Subjective Subjective: CT surgery progress note for Dr. Hannah Vila, PGY-1 Pt S & E at bedside. No acute events as per nursing. Dressings clean/dry/intact. Left lung w/ reaccumulating effusion. R anterior CT w/20cc, R posterior CT w/330cc over past 12H. Objective - Vital Signs/Intake and Output Vital Signs (last 24 hours): Temp Pulse Resp BP Pulse Ox 96 F L 87 19 182/79 H 95 07/21/17 04:00 07/21/17 06:00 07/21/17 07:24 07/21/17 06:00 07/21/17 06:00 Intake and Output: 07/21/17 07/21/17 06:59 18:59 Intake Total 250 Output Total 795 Balance -545 - Medications Medications: Current Medications Albuterol/Ipratropium (Duoneb 3 Mg/0.5 Mg (3 Ml) Ud) 3 ml INH RQ6 [facility] Last Admin: 07/21/17 07:24 Dose: 3 ml Amlodipine Besylate (Norvasc) 5 mg PO Q12H [facility] Last Admin: 07/20/17 21:13 Dose: 5 mg Aspirin (Ecotrin) 81 mg PO DAILY [facility] Last Admin: 07/18/17 09:23 Dose: Not Given Bacitracin (Bacitracin Oint) 1 applic TOP DAILY [facility] Last Admin: 07/20/17 09:21 Dose: 1 applic Calcium Acetate (Phoslo) 2,001 mg PO 0830,1200,1830 [facility] Last Admin: 07/14/17 12:26 Dose: 2,001 mg Dextrose (Dextrose 50% Inj) 0 ml IV STAT PRN; Protocol PRN Reason: Hypoglycemia Protocol Dextrose (Glutose 15) 0 gm PO ONCE PRN; Protocol PRN Reason: Hypoglycemia Protocol Dextrose (Dextrose 50% Inj) 50 ml IVP Q1H PRN PRN Reason: Hypoglycemia Diltiazem HCl (Cardizem) 120 mg PO ONCE ONE Stop: 07/21/17 08:17 Epoetin Roel (Procrit) 14,000 unit SC MWF [facility] Last Admin: 07/16/17 09:50 Dose: 14,000 unit Fluconazole (Diflucan) 200 mg PO DAILY [facility] PRN Reason: Protocol Last Admin: 07/20/17 09:21 Dose: 200 mg Furosemide (Lasix) 40 mg IVP BID [facility] Glucagon (Glucagen Diagnostic Kit) 0 mg IM STAT PRN; Protocol PRN Reason: Hypoglycemia Protocol Heparin Sodium (Porcine) (Heparin) 5,000 units SC Q12 [facility] PRN Reason: Protocol Last Admin: 07/20/17 20:46 Dose: 5,000 units Hydralazine HCl (Apresoline) 50 mg PO Q8 [facility] Last Admin: 07/21/17 00:47 Dose: 50 mg Levetiracetam 500 mg/ Sodium (Chloride) 105 mls @ 210 mls/hr IVPB Q12 [facility] Last Admin: 07/20/17 20:47 Dose: 210 mls/hr Cefepime HCl 1 gm/ Sodium (Chloride) 50 mls @ 50 mls/hr IVPB DAILY [facility] PRN Reason: Protocol Last Admin: 07/20/17 09:23 Dose: 50 mls/hr Insulin Human Lispro (Humalog) 0 units SC Q6H [facility] PRN Reason: Protocol Last Admin: 07/21/17 04:30 Dose: Not Given Levothyroxine Sodium (Synthroid) 50 mcg PO DAILY@0630 [facility] Last Admin: 07/21/17 06:18 Dose: 50 mcg Lisinopril (Zestril) 40 mg PO DAILY [facility] Last Admin: 07/20/17 09:26 Dose: 40 mg Morphine Sulfate (Morphine) 2 mg IVP Q6 PRN PRN Reason: Pain, severe (8-10) Last Admin: 07/20/17 04:08 Dose: 2 mg Morphine Sulfate (Morphine) 1 mg IVP Q4 [facility] Last Admin: 07/21/17 05:30 Dose: Not Given Pantoprazole Sodium (Protonix Inj) 40 mg IVP Q12 [facility] Last Admin: 07/20/17 20:48 Dose: 40 mg Sodium Bicarbonate (Sodium Bicarbonate Tab) 1,300 mg PO Q8 [facility] Last Admin: 07/02/17 16:23 Dose: 1,300 mg Thiamine HCl (Vitamin B1 Tab) 100 mg PO DAILY [facility] Last Admin: 07/20/17 09:26 Dose: 100 mg - Labs Labs: 07/21/17 04:20 07/21/17 04:20 PT 15.3 Seconds (9.8-13.1) H 01/19/18 05:30 INR 1.4 (0.9-1.2) H 07/18/17 05:30 APTT 34.2 Seconds (25.6-37.1) 07/18/17 05:30 - Constitutional Appears: Non-toxic, No Acute Distress - Head Exam Head Exam: ATRAUMATIC, NORMAL INSPECTION, NORMOCEPHALIC - Eye Exam Eye Exam: EOMI, Normal appearance - ENT Exam ENT Exam: Mucous Membranes Moist, Normal Exam - Neck Exam Neck Exam: Full ROM, Normal Inspection - Respiratory Exam Respiratory Exam: NORMAL BREATHING PATTERN - Cardiovascular Exam Cardiovascular Exam: REGULAR RHYTHM, +S1, +S2 Additional comments: Left chest wall with dressing in place-clean/dry/intact - GI/Abdominal Exam GI & Abdominal Exam: Soft. absent: Distended, Firm, Guarding, Rigid, Tenderness - Neurological Exam Neurological Exam: Awake - Skin Skin Exam: Dry, Intact, Normal Color, Warm Assessment and Plan - Assessment and Plan (Free Text) Assessment: 66M POD#6 s/p mini R mini thoracotamy and anterior and posterior chest tube placement, and removal of traumatic chest tube. Plan: Patient continues to be stable R CTs to suction Monitor outputs FU daily CXRs Cont Aggressive pulmonary toilet No surgical intervention at this time May need pleurodesis in the future, however pt needs to be medically optimized - CCB, aldactone, loop diuretics as per nephrology Will follow Will KENYA attending [place], PGY-1
[2017-07-21] MEDS: Cefepime 1 GM in Sodium Chloride 0.9% 50 ML IVPB SCH (09:02)
--- NOTE | 2017-07-21 09:29 | CP.PCM.PN ---
Subjective - Date & Time of Evaluation Date of Evaluation: 07/21/17 Time of Evaluation: 07:15 - Subjective Subjective: No interval events overnight Vital Signs: 36.3- 79- 172/68- 15- 100% Hi-Blue: 60% FiO2 Chest Tube Rt Post: 750ml/+320ml total/24hr Chest Tube Rt Ant: 165ml/+20ml total/24hr LEFT subclavian: patent, non-erythematous Salazar Catheter: Cloudy, yellow urine 66M easily awakened on entering the room. Patient is verbal and voice is stronger. He c/o pain at RIGHT chest wall 5/10 this morning, denies SOB, N/V, or having any BMs. Otherwise no acute complaints. Objective - Vital Signs/Intake and Output Vital Signs (last 24 hours): Temp Pulse Resp BP Pulse Ox 36.4 C L 84 16 176/77 H 98 07/21/17 08:00 07/21/17 08:22 07/21/17 08:00 07/21/17 09:04 07/21/17 08:00 Intake and Output: 07/21/17 07/21/17 06:59 18:59 Intake Total 250 100 Output Total 795 Balance -545 100 - Medications Medications: Current Medications Albuterol/Ipratropium (Duoneb 3 Mg/0.5 Mg (3 Ml) Ud) 3 ml INH RQ6 [facility] Last Admin: 07/21/17 07:24 Dose: 3 ml Amlodipine Besylate (Norvasc) 5 mg PO Q12H [facility] Last Admin: 07/21/17 08:22 Dose: 5 mg Aspirin (Ecotrin) 81 mg PO DAILY [facility] Last Admin: 07/18/17 09:23 Dose: Not Given Bacitracin (Bacitracin Oint) 1 applic TOP DAILY [facility] Last Admin: 07/21/17 08:20 Dose: 1 applic Calcium Acetate (Phoslo) 2,001 mg PO 0830,1200,1830 [facility] Last Admin: 07/14/17 12:26 Dose: 2,001 mg Dextrose (Dextrose 50% Inj) 0 ml IV STAT PRN; Protocol PRN Reason: Hypoglycemia Protocol Dextrose (Glutose 15) 0 gm PO ONCE PRN; Protocol PRN Reason: Hypoglycemia Protocol Dextrose (Dextrose 50% Inj) 50 ml IVP Q1H PRN PRN Reason: Hypoglycemia Epoetin Roel (Procrit) 14,000 unit SC MWF [facility] Last Admin: 07/21/17 08:22 Dose: 14,000 unit Fluconazole (Diflucan) 200 mg PO DAILY [facility] PRN Reason: Protocol Last Admin: 07/21/17 08:20 Dose: 200 mg Furosemide (Lasix) 40 mg IVP BID [facility] Last Admin: 07/21/17 09:04 Dose: 40 mg Glucagon (Glucagen Diagnostic Kit) 0 mg IM STAT PRN; Protocol PRN Reason: Hypoglycemia Protocol Heparin Sodium (Porcine) (Heparin) 5,000 units SC Q12 [facility] PRN Reason: Protocol Last Admin: 07/21/17 08:21 Dose: 5,000 units Hydralazine HCl (Apresoline) 50 mg PO Q8 [facility] Last Admin: 07/21/17 08:18 Dose: 50 mg Levetiracetam 500 mg/ Sodium (Chloride) 105 mls @ 210 mls/hr IVPB Q12 [facility] Last Admin: 07/21/17 08:21 Dose: 210 mls/hr Cefepime HCl 1 gm/ Sodium (Chloride) 50 mls @ 50 mls/hr IVPB DAILY [facility] PRN Reason: Protocol Last Admin: 07/21/17 09:02 Dose: 50 mls/hr Insulin Human Lispro (Humalog) 0 units SC Q6H [facility] PRN Reason: Protocol Last Admin: 07/21/17 04:30 Dose: Not Given Levothyroxine Sodium (Synthroid) 50 mcg PO DAILY@0630 [facility] Last Admin: 07/21/17 06:18 Dose: 50 mcg Lisinopril (Zestril) 40 mg PO DAILY [facility] Last Admin: 07/21/17 08:23 Dose: 40 mg Morphine Sulfate (Morphine) 2 mg IVP Q6 PRN PRN Reason: Pain, severe (8-10) Last Admin: 07/20/17 04:08 Dose: 2 mg Morphine Sulfate (Morphine) 1 mg IVP Q4 [facility] Last Admin: 07/21/17 08:32 Dose: 1 mg Pantoprazole Sodium (Protonix Inj) 40 mg IVP Q12 [facility] Last Admin: 07/21/17 08:22 Dose: 40 mg Sodium Bicarbonate (Sodium Bicarbonate Tab) 1,300 mg PO Q8 [facility] Last Admin: 07/02/17 16:23 Dose: 1,300 mg Thiamine HCl (Vitamin B1 Tab) 100 mg PO DAILY [facility] Last Admin: 07/21/17 08:23 Dose: 100 mg - Labs Labs: 07/21/17 04:20 07/21/17 04:20 PT 15.3 Seconds (9.8-13.1) H 07/18/17 05:30 INR 1.4 (0.9-1.2) H 07/18/17 05:30 APTT 34.2 Seconds (25.6-37.1) 07/18/17 05:30 - Constitutional Appears: Non-toxic, No Acute Distress - Head Exam Head Exam: ATRAUMATIC, NORMAL INSPECTION - Eye Exam Eye Exam: EOMI, Normal appearance - ENT Exam ENT Exam: Mucous Membranes Dry, Normal Exam - Neck Exam Neck Exam: Full ROM, Normal Inspection - Respiratory Exam Respiratory Exam: Decreased Breath Sounds (RIGHT base), Rhonchi (RIGHT lung), NORMAL BREATHING PATTERN Additional comments: Minimal air movement in LEFT lung. - Cardiovascular Exam Cardiovascular Exam: REGULAR RHYTHM, +S1, +S2 - GI/Abdominal Exam GI & Abdominal Exam: Soft, Normal Bowel Sounds. absent: Tenderness - Extremities Exam Extremities Exam: Normal Capillary Refill, Pedal Edema. absent: Normal Inspection ((b/l upper extremities more edematous than lower and scrotum)) - Back Exam Back Exam: absent: NORMAL INSPECTION ((skin tears x2 to lower lumbar area as per nursing, reddened area at sacrum that appears to be healing)) - Neurological Exam Neurological Exam: Alert, Awake - Psychiatric Exam Psychiatric exam: Normal Affect - Skin Skin Exam: Dry, Warm Assessment and Plan - Assessment and Plan (Free Text) Assessment: 66M with multiple co-morbidities currently stabilized. Goals at this time are to begin strengthening and nutrition. Plan: 1) Acute Respiratory Failure: Extubated, doing well on Hi-Blue 40%, recurrent pleural effusions, CXR showing LEFT post obstructive atelectasis - c/w Hi-Blue 40% - Bed program for Chest PT Q4H - CT Surgery: Rt Chest- Chest Tubes x2 on RIGHT, LEFT loculated effusion (no plans to aggressively intervene at this time) and daily CXRs no evidence of overall pulmonary improvement - c/w Diflucan as per ID - Pulmonology Consult (Dr Raymond) appreciated: no intervention at this time 2) Recurrent Pleural Effusions, Transudate- loculated on LEFT, CT x2 on RIGHT. Effusions thought to be secondary to nephrotic syndrome. - Pulmonology: no benefit for bronchoscopy - CT Surgery: No aggressive intervention at this time for LEFT pleural effusion , RIGHT lung bx- fragments of fibroadipose tissue and skeletal muscle with intraparenchymal hemorrhage - TB ruled out - Nephrology: c/w attempts to control nephrotic syndrome 3) Hypernatremia- Resolved - monitor with BMP 4) HAP- improving - ID consultation (Dr Dolan) appreciated - c/w cefepime but would like to discontinue - f/u Procalcitonin (last was 0.71H) 5) DM nephropathy - Kidney biopsy 06/05/17: Diabetic nephropathy, nodular glomerulosclerosis, associated with aprox 40 % globally sclerosed glomeruli( calss III), 10-15 % segmentally sclerosed glomeruli, docal moderate interstitial fibrosis and mod vascular sclerosis, including marked hyaline arteriolosclerosis.NO EVIDENCE OF MONOCLONAL LIGHT OR HEAVY CHAIN-RELATED RENAL DISEASE. Renal duplex: no renal vein thrombosis - Nephrology Consult appreciated: re-starting Hydralazine/Lisinopril, now added Lasix and Cardiazemssion to Aldactone and ?Cardizem to control - Renal duplex: no renal vein thrombosis - Lasix 40mg, IV, BID 6) CKD stage 4- Stable - Monitor BUN/Cr - Nephorologist consult appreciated 7) Hypothyroidism, subclinical - Econdrinologist consult appreciated - c/w levothryroxin 50 mcg daily 8) Hyperprolactinemia -Prolactin trending down last 27.1 -Test Deck Supervisor consult appreciated -MRI brain:no intra-cranial hemorrhage, chronic lacunar infarct b/l cerebral, changes in dali may represent chronic ischemia or sequela of osmotic myelonilolysis not excluded.chronic b/l basal nuclei lacunar infarcts, mastoid opacification secondary to intubation 9) Pressure Ulcer and TDI -improving 10) pEF CHF - Echo 05/31/17 normal EF 60-65% - Will discuss b-tamara and Aldactone with bridal gown fitter 11) DM 2: Low dose SSI not ordered currently, will f/u Test Deck Supervisor note 12) HTN - Hydralazine 50 Q8 - Lisinopril 40mg, Daily - Norvasc 5mg, Q12H (d/w bridal gown fitter) - Cardizem 120mg, PO, Daily 13) Anemia- stable - secondary to CKD - c/w Procrit MWF 14) DVT prophylaxis - Heparin 5,000U, SC, Q12H 15) GI prophylaxis -Pantoprazol 40 mg IV
--- NOTE | 2017-07-21 11:08 | CP.CCUPN ---
<Layo Curiel - Last Filed: 07/21/17 12:55> CCU Subjective - Physician Review Subjective (Free Text): Pt. seen at bedside with Dr. Ellis during a.m. rounds. Pt. currently on high flow oxygen at 40% and RT. chest tube draining to gravity. Pt. is awake and alert, appears comfortable. Pt. with no complaints at this time. Overnight events reviewed. 07/21/17 11:29 CCU Objective - Vital Signs / Intake & Output Vital Signs (Last 4 hours): Vital Signs Temp Pulse Resp BP Pulse Ox 07/21/17 10:00 79 17 179/88 H 95 07/21/17 09:04 176/77 H 07/21/17 08:22 84 175/75 H 07/21/17 08:18 78 175/75 H 07/21/17 08:00 97.5 F L 77 16 184/74 H 98 07/21/17 07:24 19 Intake and Output (Last 8hrs): Intake & Output 07/20/17 07/21/17 07/21/17 22:59 06:59 14:59 Intake Total 275 150 100 Output Total 460 645 Balance -185 -495 100 Intake: IV 0 Intake, Piggyback 100 Oral 275 50 100 Output: Chest Tube Drainage 60 270 Right Anterior Chest 0 20 Right Posterior Chest 60 250 Urine 400 375 Urethral (Salazar) 400 375 Stool 0 - Physical Exam Head: Positive for: Atraumatic, Normocephalic Conjunctiva: Negative for: Icteric Mouth: Positive for: Moist Mucous Membranes. Negative for: Dry Neck: Positive for: Normal Range of Motion (Supple ), Other (central line: left neck in place with dressing, biopatch still over line. clean and dry.) Respiratory/Chest: Positive for: Decreased Breath Sounds (greater on the left than right), Rhonchi (crackles on obth sides greater on the left), Tachypneic ( 25 breaths per minute ) Cardiovascular: Positive for: Regular Rate and Rhythm, Normal S1, S2 Abdomen: Positive for: Other (soft, non-tender ) Upper Extremity: Positive for: Edema (bilateral 2+ pitting edema; right > left) Lower Extremity: Negative for: CALF TENDERNESS Psychiatric: Positive for: Alert, Oriented x 3 (difficult to speech), Depressed Mood - Medications Active Medications: Active Medications Generic Name Dose Route Start Last Admin Trade Name Freq PRN Reason Stop Dose Admin Albuterol/Ipratropium 3 ml 07/18/17 14:00 07/21/17 07:24 Duoneb 3 Mg/0.5 Mg (3 Ml) Ud INH 3 ml RQ6 THOMAS Administration Amlodipine Besylate 5 mg 07/20/17 08:45 07/21/17 08:22 Norvasc PO 5 mg Q12H THOMAS Administration Aspirin 81 mg 07/14/17 09:00 07/18/17 09:23 Ecotrin PO Not Given DAILY THOMAS Bacitracin 1 applic 07/11/17 09:00 07/21/17 08:20 Bacitracin Oint TOP 1 applic DAILY THOMAS Administration Calcium Acetate 2,001 mg 07/05/17 08:30 07/14/17 12:26 Phoslo PO 2,001 mg 0830,1200,1830 THOMAS Administration Dextrose 0 ml 06/22/17 22:36 Dextrose 50% Inj IV STAT PRN Hypoglycemia Protocol Protocol Dextrose 0 gm 06/22/17 22:36 Glutose 15 PO ONCE PRN Hypoglycemia Protocol Protocol Dextrose 50 ml 07/14/17 14:52 Dextrose 50% Inj IVP Q1H PRN Hypoglycemia Epoetin Roel 14,000 unit 07/07/17 09:00 07/21/17 08:22 Procrit SC 14,000 unit [facility] Administration Fluconazole 200 mg 07/12/17 09:00 07/21/17 08:20 Diflucan PO 200 mg DAILY THOMAS Administration Protocol Furosemide 40 mg 07/21/17 09:00 07/21/17 09:04 Lasix IVP 40 mg BID THOMAS Administration Glucagon 0 mg 06/22/17 22:36 Glucagen Diagnostic Kit IM STAT PRN Hypoglycemia Protocol Protocol Heparin Sodium (Porcine) 5,000 units 07/17/17 21:00 07/21/17 08:21 Heparin SC 5,000 units Q12 THOMAS Administration Protocol Hydralazine HCl 50 mg 07/19/17 13:24 07/21/17 08:18 Apresoline PO 50 mg Q8 THOMAS Administration Levetiracetam 500 mg/ Sodium 105 mls @ 210 mls/hr 07/04/17 21:00 07/21/17 08: 21 Chloride IVPB 210 mls/hr Q12 THOMAS Administration Cefepime HCl 1 gm/ Sodium 50 mls @ 50 mls/hr 07/13/17 09:00 07/21/17 09:02 Chloride IVPB 50 mls/hr DAILY THOMAS Administration Protocol Insulin Human Lispro 0 units 07/12/17 09:45 07/21/17 04:30 Humalog SC Not Given Q6H THOMAS Protocol Levothyroxine Sodium 50 mcg 07/05/17 06:30 07/21/17 06:18 Synthroid PO 50 mcg DAILY@0630 THOMAS Administration Lisinopril 40 mg 07/19/17 12:45 07/21/17 08:23 Zestril PO 40 mg DAILY THOMAS Administration Morphine Sulfate 2 mg 07/18/17 14:19 07/20/17 04:08 Morphine IVP 2 mg Q6 PRN Administration Pain, severe (8-10) Morphine Sulfate 1 mg 07/19/17 17:00 07/21/17 08:32 Morphine IVP 1 mg Q4 THOMAS Administration Pantoprazole Sodium 40 mg 07/08/17 21:00 07/21/17 08:22 Protonix Inj IVP 40 mg Q12 THOMAS Administration Sodium Bicarbonate 1,300 mg 06/30/17 17:00 07/02/17 16:23 Sodium Bicarbonate Tab PO 1,300 mg Q8 THOMAS Administration Thiamine HCl 100 mg 07/15/17 09:00 07/21/17 08:23 Vitamin B1 Tab PO 100 mg DAILY THOMAS Administration - Patient Studies Lab Studies: Lab Studies 07/21/17 07/21/17 07/21/17 Range/Units 11:02 05:37 04:20 WBC (4.8-10.8) K/uL RBC (4.40-5.90) Mil/uL Hgb (12.0-18.0) g/dL Hct (35.0-51.0) % MCV (80.0-94.0) fl MCH (27.0-31.0) pg MCHC (33.0-37.0) g/dL RDW (11.5-14.5) % Plt Count (130-400) K/uL MPV (7.2-11.7) fl Neut % (Auto) (50.0-75.0) % Lymph % (Auto) (20.0-40.0) % [place] % (Auto) (0.0-10.0) % Eos % (Auto) (0.0-4.0) % Baso % (Auto) (0.0-2.0) % Neut # (1.8-7.0) K/uL Lymph # (1.0-4.3) K/uL [place] # (0.0-0.8) K/uL Eos # (0.0-0.7) K/uL Baso # (0.0-0.2) K/uL Sodium (132-148) mmol/l Potassium (3.6-5.0) MMOL/L Chloride (98-107) mmol/L Carbon Dioxide (22-30) mmol/L Anion Gap (10-20) BUN (9-20) mg/dl Creatinine (0.8-1.5) mg/dl Est GFR ( Amer) Est GFR (Non-Af Amer) POC Glucose (mg/dL) 115 H 96 (65-110) mg/dL Random Glucose (75-110) mg/dL Calcium (8.4-10.2) mg/dL Total Bilirubin (0.2-1.3) mg/dl AST (17-59) U/L ALT (21-72) U/L Alkaline Phosphatase (38-126) U/L Total Protein (6.3-8.2) G/DL Albumin (3.5-5.0) g/dL Globulin (2.2-3.9) gm/dL Albumin/Globulin Ratio (1.0-2.1) Free T4 1.43 (0.78-2.19) ng/dL Thyroxine (T4) (5.5-11.0) ug/dl TSH 3rd Generation (0.46-4.68) mIU/ML 07/21/17 07/21/17 07/20/17 Range/Units 04:20 04:20 21:10 WBC 5.1 (4.8-10.8) K/uL RBC 3.42 L (4.40-5.90) Mil/uL Hgb 9.8 L (12.0-18.0) g/dL Hct 32.0 L (35.0-51.0) % MCV 93.8 (80.0-94.0) fl MCH 28.8 (27.0-31.0) pg MCHC 30.7 L (33.0-37.0) g/dL RDW 19.0 H (11.5-14.5) % Plt Count 333 (130-400) K/uL MPV 9.3 (7.2-11.7) fl Neut % (Auto) 68.7 (50.0-75.0) % Lymph % (Auto) 15.2 L (20.0-40.0) % [place] % (Auto) 9.0 (0.0-10.0) % Eos % (Auto) 4.3 H (0.0-4.0) % Baso % (Auto) 2.8 H (0.0-2.0) % Neut # 3.5 (1.8-7.0) K/uL Lymph # 0.8 L (1.0-4.3) K/uL [place] # 0.5 (0.0-0.8) K/uL Eos # 0.2 (0.0-0.7) K/uL Baso # 0.1 (0.0-0.2) K/uL Sodium 148 (132-148) mmol/l Potassium 4.1 (3.6-5.0) MMOL/L Chloride 119 H (98-107) mmol/L Carbon Dioxide 20 L (22-30) mmol/L Anion Gap 13 (10-20) BUN 26 H (9-20) mg/dl Creatinine 1.9 H (0.8-1.5) mg/dl Est GFR ( Amer) 43 Est GFR (Non-Af Amer) 36 POC Glucose (mg/dL) 125 H (65-110) mg/dL Random Glucose 95 (75-110) mg/dL Calcium 7.5 L (8.4-10.2) mg/dL Total Bilirubin 0.4 (0.2-1.3) mg/dl AST 17 D (17-59) U/L ALT 25 (21-72) U/L Alkaline Phosphatase 153 H (38-126) U/L Total Protein 5.2 L (6.3-8.2) G/DL Albumin 2.4 L (3.5-5.0) g/dL Globulin 2.8 (2.2-3.9) gm/dL Albumin/Globulin Ratio 0.8 L (1.0-2.1) Free T4 (0.78-2.19) ng/dL Thyroxine (T4) 7.64 (5.5-11.0) ug/dl TSH 3rd Generation 3.31 (0.46-4.68) mIU/ML 07/20/17 Range/Units 16:10 WBC (4.8-10.8) K/uL RBC (4.40-5.90) Mil/uL Hgb (12.0-18.0) g/dL Hct (35.0-51.0) % MCV (80.0-94.0) fl MCH (27.0-31.0) pg MCHC (33.0-37.0) g/dL RDW (11.5-14.5) % Plt Count (130-400) K/uL MPV (7.2-11.7) fl Neut % (Auto) (50.0-75.0) % Lymph % (Auto) (20.0-40.0) % [place] % (Auto) (0.0-10.0) % Eos % (Auto) (0.0-4.0) % Baso % (Auto) (0.0-2.0) % Neut # (1.8-7.0) K/uL Lymph # (1.0-4.3) K/uL [place] # (0.0-0.8) K/uL Eos # (0.0-0.7) K/uL Baso # (0.0-0.2) K/uL Sodium (132-148) mmol/l Potassium (3.6-5.0) MMOL/L Chloride (98-107) mmol/L Carbon Dioxide (22-30) mmol/L Anion Gap (10-20) BUN (9-20) mg/dl Creatinine (0.8-1.5) mg/dl Est GFR ( Amer) Est GFR (Non-Af Amer) POC Glucose (mg/dL) 129 H (65-110) mg/dL Random Glucose (75-110) mg/dL Calcium (8.4-10.2) mg/dL Total Bilirubin (0.2-1.3) mg/dl AST (17-59) U/L ALT (21-72) U/L Alkaline Phosphatase (38-126) U/L Total Protein (6.3-8.2) G/DL Albumin (3.5-5.0) g/dL Globulin (2.2-3.9) gm/dL Albumin/Globulin Ratio (1.0-2.1) Free T4 (0.78-2.19) ng/dL Thyroxine (T4) (5.5-11.0) ug/dl TSH 3rd Generation (0.46-4.68) mIU/ML Laboratory Results - last 24 hr 07/20/17 07/20/17 07/21/17 16:10 21:10 04:20 WBC 5.1 RBC 3.42 L Hgb 9.8 L Hct 32.0 L MCV 93.8 MCH 28.8 MCHC 30.7 L RDW 19.0 H Plt Count 333 MPV 9.3 Neut % (Auto) 68.7 Lymph % (Auto) 15.2 L [place] % (Auto) 9.0 Eos % (Auto) 4.3 H Baso % (Auto) 2.8 H Neut # 3.5 Lymph # 0.8 L [place] # 0.5 Eos # 0.2 Baso # 0.1 Sodium Potassium Chloride Carbon Dioxide Anion Gap BUN Creatinine Est GFR ( Amer) Est GFR (Non-Af Amer) POC Glucose (mg/dL) 129 H 125 H Random Glucose Calcium Total Bilirubin AST ALT Alkaline Phosphatase Total Protein Albumin Globulin Albumin/Globulin Ratio Free T4 Thyroxine (T4) TSH 3rd Generation 07/21/17 07/21/17 07/21/17 04:20 04:20 05:37 WBC RBC Hgb Hct MCV MCH MCHC RDW Plt Count MPV Neut % (Auto) Lymph % (Auto) [place] % (Auto) Eos % (Auto) Baso % (Auto) Neut # Lymph # [place] # Eos # Baso # Sodium 148 Potassium 4.1 Chloride 119 H Carbon Dioxide 20 L Anion Gap 13 BUN 26 H Creatinine 1.9 H Est GFR ( Amer) 43 Est GFR (Non-Af Amer) 36 POC Glucose (mg/dL) 96 Random Glucose 95 Calcium 7.5 L Total Bilirubin 0.4 AST 17 D ALT 25 Alkaline Phosphatase 153 H Total Protein 5.2 L Albumin 2.4 L Globulin 2.8 Albumin/Globulin Ratio 0.8 L Free T4 1.43 Thyroxine (T4) 7.64 TSH 3rd Generation 3.31 07/21/17 11:02 WBC RBC Hgb Hct MCV MCH MCHC RDW Plt Count MPV Neut % (Auto) Lymph % (Auto) [place] % (Auto) Eos % (Auto) Baso % (Auto) Neut # Lymph # [place] # Eos # Baso # Sodium Potassium Chloride Carbon Dioxide Anion Gap BUN Creatinine Est GFR ( Amer) Est GFR (Non-Af Amer) POC Glucose (mg/dL) 115 H Random Glucose Calcium Total Bilirubin AST ALT Alkaline Phosphatase Total Protein Albumin Globulin Albumin/Globulin Ratio Free T4 Thyroxine (T4) TSH 3rd Generation Fingerstick Blood Sugar Results: 96 Review of Systems - Review of Systems Review of Systems: Unable to obtain. Pt. awake alert but demonstrates poverty of speech, but does respond to simple questions. - Psychiatric Additional comments: Pt. open up eyes and responds to questions appropriated but delayed response Critical Care Progress Note - Nutrition Nutrition: Nutrition Category Date Time Status Dysphagia/Modified Consistency Diet [DIET] Diets 07/18/17 Dinner Active Assessment/Plan - Assessment and Plan (Free Text) Plan: 66 y.o. male with PMHx of HTN, DM, CKD admitted for acute respiratory failure associated with recurrent left sided pleural effusion without resolution of left lung effusion and currently on high flow oxygen at 40% Acute Respiratory failure secondary to recurrent pleural effusion - Repeat CXR this a.m. shows recurrent left side pleural effusions 1- c/w high flow oxygen at 40% 2- Rt. anterior and posterior chest tube in place 3- Continue with duonebs q6 scheduled 4- Repeat CXR at 14:00 CKD- Chronic 1- Nephrology Dr. Luz on board input appreciated 2- c/w Lasix 40mg I.V. BID 3- Hydralazine 50mg q8 HTN 1- Amlodipine 5 mg daily 2- Lisinopril 40mg daily [facility] acquired pneumonia 1- Continue with Cefipime day #24 Anemia of unclear etiology most likely due to chronic disease 1- Procrit 14,000 units MWF DVT prophlaxis 1- Heparin 5000 sc q12 Seizures 1- Keppra 500mg I.V. q12 Diabetes 1-Humalog 6units with each meal Hypothyroidism 1- Levothyroxine 50mcg daily Diet 1- Dysphagia modified diet GI prophylaxis 1- Protonix 40mg I.V. q12 Code Status 1- full code <Latef,Hakan M - Last Filed: 07/21/17 16:43> CCU Objective - Vital Signs / Intake & Output Vital Signs (Last 4 hours): Vital Signs Temp Pulse Resp BP Pulse Ox 07/21/17 16:30 70 164/71 H 07/21/17 16:00 97.8 F 70 15 164/71 H 99 07/21/17 15:48 16 07/21/17 14:00 76 25 H 144/64 95 07/21/17 12:53 22 Intake and Output (Last 8hrs): Intake & Output 07/21/17 07/21/17 07/21/17 06:59 14:59 22:59 Intake Total 150 550 100 Output Total 645 Balance -495 550 100 Intake: IV 0 Intake, Piggyback 100 200 Oral 50 350 100 Output: Chest Tube Drainage 270 Right Anterior Chest 20 Right Posterior Chest 250 Urine 375 Urethral (Salazar) 375 - Medications Active Medications: Active Medications Generic Name Dose Route Start Last Admin Trade Name Freq PRN Reason Stop Dose Admin Albuterol/Ipratropium 3 ml 07/18/17 14:00 07/21/17 13:05 Duoneb 3 Mg/0.5 Mg (3 Ml) Ud INH 3 ml RQ6 THOMAS Administration Amlodipine Besylate 5 mg 07/20/17 08:45 07/21/17 08:22 Norvasc PO 5 mg Q12H THOMAS Administration Aspirin 81 mg 07/14/17 09:00 07/18/17 09:23 Ecotrin PO Not Given DAILY THOMAS Bacitracin 1 applic 07/11/17 09:00 07/21/17 08:20 Bacitracin Oint TOP 1 applic DAILY THOMAS Administration Calcium Acetate 2,001 mg 07/05/17 08:30 07/14/17 12:26 Phoslo PO 2,001 mg 0830,1200,1830 THOMAS Administration Dextrose 0 ml 06/22/17 22:36 Dextrose 50% Inj IV STAT PRN Hypoglycemia Protocol Protocol Dextrose 0 gm 06/22/17 22:36 Glutose 15 PO ONCE PRN Hypoglycemia Protocol Protocol Dextrose 50 ml 07/14/17 14:52 Dextrose 50% Inj IVP Q1H PRN Hypoglycemia Diltiazem HCl 120 mg 07/22/17 09:00 Cardizem Cd PO DAILY THOMAS Epoetin Roel 14,000 unit 07/07/17 09:00 07/21/17 08:22 Procrit SC 14,000 unit MWF THOMAS Administration Fluconazole 200 mg 07/12/17 09:00 07/21/17 08:20 Diflucan PO 200 mg DAILY THOMAS Administration Protocol Furosemide 40 mg 07/21/17 09:00 07/21/17 16:30 Lasix IVP 40 mg BID THOMAS Administration Glucagon 0 mg 06/22/17 22:36 Glucagen Diagnostic Kit IM STAT PRN Hypoglycemia Protocol Protocol Heparin Sodium (Porcine) 5,000 units 07/17/17 21:00 07/21/17 08:21 Heparin SC 5,000 units Q12 THOMAS Administration Protocol Hydralazine HCl 50 mg 07/19/17 13:24 07/21/17 16:30 Apresoline PO 50 mg Q8 THOMAS Administration Levetiracetam 500 mg/ Sodium 105 mls @ 210 mls/hr 07/04/17 21:00 07/21/17 08: 21 Chloride IVPB 210 mls/hr Q12 THOMAS Administration Cefepime HCl 1 gm/ Sodium 50 mls @ 50 mls/hr 07/13/17 09:00 07/21/17 09:02 Chloride IVPB 50 mls/hr DAILY THOMAS Administration Protocol Insulin Human Lispro 0 units 07/12/17 09:45 07/21/17 16:14 Humalog SC Not Given Q6H [facility] Protocol Levothyroxine Sodium 50 mcg 07/05/17 06:30 07/21/17 06:18 Synthroid PO 50 mcg DAILY@0630 THOMAS Administration Lisinopril 40 mg 07/19/17 12:45 07/21/17 08:23 Zestril PO 40 mg DAILY THOMAS Administration Morphine Sulfate 2 mg 07/18/17 14:19 07/20/17 04:08 Morphine IVP 2 mg Q6 PRN Administration Pain, severe (8-10) Morphine Sulfate 1 mg 07/19/17 17:00 07/21/17 16:33 Morphine IVP 1 mg Q4 THOMAS Administration Pantoprazole Sodium 40 mg 07/08/17 21:00 07/21/17 08:22 Protonix Inj IVP 40 mg Q12 THOMAS Administration Sodium Bicarbonate 1,300 mg 06/30/17 17:00 07/02/17 16:23 Sodium Bicarbonate Tab PO 1,300 mg Q8 THOMAS Administration Thiamine HCl 100 mg 07/15/17 09:00 07/21/17 08:23 Vitamin B1 Tab PO 100 mg DAILY THOMAS Administration - Patient Studies Lab Studies: Microbiology Studies 07/06/17 19:20 Mycobacterial Culture - Preliminary Other: Please Indicate Lab Studies 07/21/17 07/21/17 07/21/17 Range/Units 16:02 11:02 05:37 WBC (4.8-10.8) K/uL RBC (4.40-5.90) Mil/uL Hgb (12.0-18.0) g/dL Hct (35.0-51.0) % MCV (80.0-94.0) fl MCH (27.0-31.0) pg MCHC (33.0-37.0) g/dL RDW (11.5-14.5) % Plt Count (130-400) K/uL MPV (7.2-11.7) fl Neut % (Auto) (50.0-75.0) % Lymph % (Auto) (20.0-40.0) % [place] % (Auto) (0.0-10.0) % Eos % (Auto) (0.0-4.0) % Baso % (Auto) (0.0-2.0) % Neut # (1.8-7.0) K/uL Lymph # (1.0-4.3) K/uL [place] # (0.0-0.8) K/uL Eos # (0.0-0.7) K/uL Baso # (0.0-0.2) K/uL Sodium (132-148) mmol/l Potassium (3.6-5.0) MMOL/L Chloride (98-107) mmol/L Carbon Dioxide (22-30) mmol/L Anion Gap (10-20) BUN (9-20) mg/dl Creatinine (0.8-1.5) mg/dl Est GFR ( Amer) Est GFR (Non-Af Amer) POC Glucose (mg/dL) 131 H 115 H 96 (65-110) mg/dL Random Glucose (75-110) mg/dL Calcium (8.4-10.2) mg/dL Total Bilirubin (0.2-1.3) mg/dl AST (17-59) U/L ALT (21-72) U/L Alkaline Phosphatase (38-126) U/L Total Protein (6.3-8.2) G/DL Albumin (3.5-5.0) g/dL Globulin (2.2-3.9) gm/dL Albumin/Globulin Ratio (1.0-2.1) Free T4 (0.78-2.19) ng/dL Thyroxine (T4) (5.5-11.0) ug/dl TSH 3rd Generation (0.46-4.68) mIU/ML 07/21/17 07/21/17 07/21/17 Range/Units 04:20 04:20 04:20 WBC 5.1 (4.8-10.8) K/uL RBC 3.42 L (4.40-5.90) Mil/uL Hgb 9.8 L (12.0-18.0) g/dL Hct 32.0 L (35.0-51.0) % MCV 93.8 (80.0-94.0) fl MCH 28.8 (27.0-31.0) pg MCHC 30.7 L (33.0-37.0) g/dL RDW 19.0 H (11.5-14.5) % Plt Count 333 (130-400) K/uL MPV 9.3 (7.2-11.7) fl Neut % (Auto) 68.7 (50.0-75.0) % Lymph % (Auto) 15.2 L (20.0-40.0) % [place] % (Auto) 9.0 (0.0-10.0) % Eos % (Auto) 4.3 H (0.0-4.0) % Baso % (Auto) 2.8 H (0.0-2.0) % Neut # 3.5 (1.8-7.0) K/uL Lymph # 0.8 L (1.0-4.3) K/uL [place] # 0.5 (0.0-0.8) K/uL Eos # 0.2 (0.0-0.7) K/uL Baso # 0.1 (0.0-0.2) K/uL Sodium 148 (132-148) mmol/l Potassium 4.1 (3.6-5.0) MMOL/L Chloride 119 H (98-107) mmol/L Carbon Dioxide 20 L (22-30) mmol/L Anion Gap 13 (10-20) BUN 26 H (9-20) mg/dl Creatinine 1.9 H (0.8-1.5) mg/dl Est GFR ( Amer) 43 Est GFR (Non-Af Amer) 36 POC Glucose (mg/dL) (65-110) mg/dL Random Glucose 95 (75-110) mg/dL Calcium 7.5 L (8.4-10.2) mg/dL Total Bilirubin 0.4 (0.2-1.3) mg/dl AST 17 D (17-59) U/L ALT 25 (21-72) U/L Alkaline Phosphatase 153 H (38-126) U/L Total Protein 5.2 L (6.3-8.2) G/DL Albumin 2.4 L (3.5-5.0) g/dL Globulin 2.8 (2.2-3.9) gm/dL Albumin/Globulin Ratio 0.8 L (1.0-2.1) Free T4 1.43 (0.78-2.19) ng/dL Thyroxine (T4) 7.64 (5.5-11.0) ug/dl TSH 3rd Generation 3.31 (0.46-4.68) mIU/ML 07/20/17 Range/Units 21:10 WBC (4.8-10.8) K/uL RBC (4.40-5.90) Mil/uL Hgb (12.0-18.0) g/dL Hct (35.0-51.0) % MCV (80.0-94.0) fl MCH (27.0-31.0) pg MCHC (33.0-37.0) g/dL RDW (11.5-14.5) % Plt Count (130-400) K/uL MPV (7.2-11.7) fl Neut % (Auto) (50.0-75.0) % Lymph % (Auto) (20.0-40.0) % [place] % (Auto) (0.0-10.0) % Eos % (Auto) (0.0-4.0) % Baso % (Auto) (0.0-2.0) % Neut # (1.8-7.0) K/uL Lymph # (1.0-4.3) K/uL [place] # (0.0-0.8) K/uL Eos # (0.0-0.7) K/uL Baso # (0.0-0.2) K/uL Sodium (132-148) mmol/l Potassium (3.6-5.0) MMOL/L Chloride (98-107) mmol/L Carbon Dioxide (22-30) mmol/L Anion Gap (10-20) BUN (9-20) mg/dl Creatinine (0.8-1.5) mg/dl Est GFR ( Amer) Est GFR (Non-Af Amer) POC Glucose (mg/dL) 125 H (65-110) mg/dL Random Glucose (75-110) mg/dL Calcium (8.4-10.2) mg/dL Total Bilirubin (0.2-1.3) mg/dl AST (17-59) U/L ALT (21-72) U/L Alkaline Phosphatase (38-126) U/L Total Protein (6.3-8.2) G/DL Albumin (3.5-5.0) g/dL Globulin (2.2-3.9) gm/dL Albumin/Globulin Ratio (1.0-2.1) Free T4 (0.78-2.19) ng/dL Thyroxine (T4) (5.5-11.0) ug/dl TSH 3rd Generation (0.46-4.68) mIU/ML Laboratory Results - last 24 hr 07/20/17 07/21/17 07/21/17 21:10 04:20 04:20 WBC 5.1 RBC 3.42 L Hgb 9.8 L Hct 32.0 L MCV 93.8 MCH 28.8 MCHC 30.7 L RDW 19.0 H Plt Count 333 MPV 9.3 Neut % (Auto) 68.7 Lymph % (Auto) 15.2 L [place] % (Auto) 9.0 Eos % (Auto) 4.3 H Baso % (Auto) 2.8 H Neut # 3.5 Lymph # 0.8 L [place] # 0.5 Eos # 0.2 Baso # 0.1 Sodium 148 Potassium 4.1 Chloride 119 H Carbon Dioxide 20 L Anion Gap 13 BUN 26 H Creatinine 1.9 H Est GFR ( Amer) 43 Est GFR (Non-Af Amer) 36 POC Glucose (mg/dL) 125 H Random Glucose 95 Calcium 7.5 L Total Bilirubin 0.4 AST 17 D ALT 25 Alkaline Phosphatase 153 H Total Protein 5.2 L Albumin 2.4 L Globulin 2.8 Albumin/Globulin Ratio 0.8 L Free T4 Thyroxine (T4) 7.64 TSH 3rd Generation 3.31 07/21/17 07/21/17 07/21/17 04:20 05:37 11:02 WBC RBC Hgb Hct MCV MCH MCHC RDW Plt Count MPV Neut % (Auto) Lymph % (Auto) [place] % (Auto) Eos % (Auto) Baso % (Auto) Neut # Lymph # [place] # Eos # Baso # Sodium Potassium Chloride Carbon Dioxide Anion Gap BUN Creatinine Est GFR ( Amer) Est GFR (Non-Af Amer) POC Glucose (mg/dL) 96 115 H Random Glucose Calcium Total Bilirubin AST ALT Alkaline Phosphatase Total Protein Albumin Globulin Albumin/Globulin Ratio Free T4 1.43 Thyroxine (T4) TSH 3rd Generation 07/21/17 16:02 WBC RBC Hgb Hct MCV MCH MCHC RDW Plt Count MPV Neut % (Auto) Lymph % (Auto) [place] % (Auto) Eos % (Auto) Baso % (Auto) Neut # Lymph # [place] # Eos # Baso # Sodium Potassium Chloride Carbon Dioxide Anion Gap BUN Creatinine Est GFR ( Amer) Est GFR (Non-Af Amer) POC Glucose (mg/dL) 131 H Random Glucose Calcium Total Bilirubin AST ALT Alkaline Phosphatase Total Protein Albumin Globulin Albumin/Globulin Ratio Free T4 Thyroxine (T4) [facility] 3rd Generation Critical Care Progress Note - Nutrition Nutrition: Nutrition Category Date Time Status Dysphagia/Modified Consistency Diet [DIET] Diets 07/18/17 Dinner Active Attending/Attestation - Attestation I have personally seen and examined this patient.: Yes I have fully participated in the care of the patient.: Yes I have reviewed all pertinent clinical information: Yes Notes (Text): 07/21/17 16:41 Today: Friday, July 21, 2017 The patient was Seen/interviewed and examined by me at the bedside during ICU round, Medical records reviewed and Management issues were discussed and formulated with the house staff. Events reviewed I have reviewed all the relevant clinical, laboratory, hemodynamic, radiographic data and medications Pain issues, skin care, head of the bed elevation, glycemic control were addressed. I concur with resident's assessment and plan of care as transcribed in Dr. Curiel note. Repeat CXR showed improved Rt lungareation
--- NOTE | 2017-07-21 11:42 | RAD ---
HISTORY: chest tubes COMPARISON: Portable chest 07/20/2017. FINDINGS: 2 right-sided chest tubes are unchanged in position. A left central venous line is also stable in position. LUNGS: No interval change in fluid in the minor fissure as well as minimally at the right lower lobe pleural space with underlying atelectasis or infiltrate not excluded the right base though likely limited. There is near complete opacification left hemithorax with trace residual aeration at the left apex. Underlying infiltrate is not excluded diffusely. Consider post obstructive atelectasis. Cardiac silhouette is obscured. No definite pulmonary vascular derangement identified. No pneumothorax bilaterally. PLEURA: As above CARDIOVASCULAR: As above OSSEOUS STRUCTURES: No significant abnormalities. VISUALIZED UPPER ABDOMEN: Normal. OTHER FINDINGS: None. IMPRESSION: Near complete opacification left chest, likely from a postop obstructive atelectasis etiology underlying pneumonia is not completely excluded. Clinical follow-up is advised. Minimal right pleural effusions. Borderline underlying atelectasis or infiltrate right base. Findings discussed with Nurse Patricio 07/21/2017, 11:30 a.m. with written down and read back verification (Which the attending physician and resident are apparently already aware of).
--- NOTE | 2017-07-21 17:10 | RAD ---
HISTORY: Left-sided atelectasis. COMPARISON: 2017. Time of the most recent examination: 04:17. FINDINGS: LUNGS: Moderate improvement with respect aeration of the left lung. The left upper lobe is partially aerated. PLEURA: Stable position of chest tubes in the right pleural space. CARDIOVASCULAR: No significant interval change compared to the prior examination(s). OSSEOUS STRUCTURES: No significant abnormalities. VISUALIZED UPPER ABDOMEN: Normal. OTHER FINDINGS: None. IMPRESSION: Interval improvement with respect aeration of the left upper lobe.
--- NOTE | 2017-07-21 17:50 | PN ---
DATE: ENDOCRINOLOGY FOLLOWUP NOTE LOCATION: In room 433, ICU. SUBJECTIVE: This is a 66-year-old male with recent acute respiratory failure and underlying pleural effusion with chest tube insertion and is now also being followed closely for metabolic management. His glycemic levels are much improved at this time and have ranged from 96 to 116 and 125 mg/dL. His latest chemistry shows a BUN of 26, sodium 148, potassium 4.1, chloride 119, CO2 of 20, glucose 95, and creatinine 1.9. His latest thyroid studies shows a T4 of 7.64 with a TSH of 3.31 and a free T4 of 1.43. So, at this time, we will continue the same low-dose levothyroxine given at 50 mcg once daily as ordered. We will titrate incrementally as indicated to optimize metabolic control. We will also continue the low-dose correction scale using regular insulin as given. We will follow with you. Bettina Mann MD
--- NOTE | 2017-07-21 19:12 | CP.PCM.PN ---
Subjective - Date & Time of Evaluation Date of Evaluation: 07/21/17 Time of Evaluation: 12:45 - Subjective Subjective: Patient denies any shortness of breath; tolerating PO diet with assistance; with pain intermittently at site of R chest tube; Objective - Vital Signs/Intake and Output Vital Signs (last 24 hours): Temp Pulse Resp BP Pulse Ox 97.8 F 74 20 167/74 H 97 07/21/17 16:00 07/21/17 18:00 07/21/17 19:09 07/21/17 18:00 07/21/17 18:00 Intake and Output: 07/21/17 07/22/17 18:59 06:59 Intake Total 790 Output Total 1432 Balance -642 - Medications Medications: Current Medications Albuterol/Ipratropium (Duoneb 3 Mg/0.5 Mg (3 Ml) Ud) 3 ml INH RQ6 [facility] Last Admin: 07/21/17 19:08 Dose: 3 ml Amlodipine Besylate (Norvasc) 5 mg PO Q12H [facility] Last Admin: 07/21/17 08:22 Dose: 5 mg Aspirin (Ecotrin) 81 mg PO DAILY [facility] Last Admin: 07/18/17 09:23 Dose: Not Given Bacitracin (Bacitracin Oint) 1 applic TOP DAILY [facility] Last Admin: 07/21/17 08:20 Dose: 1 applic Calcium Acetate (Phoslo) 2,001 mg PO 0830,1200,1830 [facility] Last Admin: 07/14/17 12:26 Dose: 2,001 mg Dextrose (Dextrose 50% Inj) 0 ml IV STAT PRN; Protocol PRN Reason: Hypoglycemia Protocol Dextrose (Glutose 15) 0 gm PO ONCE PRN; Protocol PRN Reason: Hypoglycemia Protocol Dextrose (Dextrose 50% Inj) 50 ml IVP Q1H PRN PRN Reason: Hypoglycemia Diltiazem HCl (Cardizem Cd) 120 mg PO DAILY [facility] Epoetin Roel (Procrit) 14,000 unit SC MWF [facility] Last Admin: 07/21/17 08:22 Dose: 14,000 unit Fluconazole (Diflucan) 200 mg PO DAILY [facility] PRN Reason: Protocol Last Admin: 07/21/17 08:20 Dose: 200 mg Furosemide (Lasix) 40 mg IVP BID [facility] Last Admin: 07/21/17 16:30 Dose: 40 mg Glucagon (Glucagen Diagnostic Kit) 0 mg IM STAT PRN; Protocol PRN Reason: Hypoglycemia Protocol Heparin Sodium (Porcine) (Heparin) 5,000 units SC Q12 [facility] PRN Reason: Protocol Last Admin: 07/21/17 08:21 Dose: 5,000 units Hydralazine HCl (Apresoline) 50 mg PO Q8 [facility] Last Admin: 07/21/17 16:30 Dose: 50 mg Levetiracetam 500 mg/ Sodium (Chloride) 105 mls @ 210 mls/hr IVPB Q12 [facility] Last Admin: 07/21/17 08:21 Dose: 210 mls/hr Cefepime HCl 1 gm/ Sodium (Chloride) 50 mls @ 50 mls/hr IVPB DAILY [facility] PRN Reason: Protocol Last Admin: 07/21/17 09:02 Dose: 50 mls/hr Insulin Human Lispro (Humalog) 0 units SC Q6H [facility] PRN Reason: Protocol Last Admin: 07/21/17 16:14 Dose: Not Given Levothyroxine Sodium (Synthroid) 50 mcg PO DAILY@0630 [facility] Last Admin: 07/21/17 06:18 Dose: 50 mcg Lisinopril (Zestril) 40 mg PO DAILY [facility] Last Admin: 07/21/17 08:23 Dose: 40 mg Morphine Sulfate (Morphine) 2 mg IVP Q6 PRN PRN Reason: Pain, severe (8-10) Last Admin: 07/20/17 04:08 Dose: 2 mg Morphine Sulfate (Morphine) 1 mg IVP Q4 [facility] Last Admin: 07/21/17 16:33 Dose: 1 mg Pantoprazole Sodium (Protonix Inj) 40 mg IVP Q12 [facility] Last Admin: 07/21/17 08:22 Dose: 40 mg Sodium Bicarbonate (Sodium Bicarbonate Tab) 1,300 mg PO Q8 [facility] Last Admin: 07/02/17 16:23 Dose: 1,300 mg Thiamine HCl (Vitamin B1 Tab) 100 mg PO DAILY [facility] Last Admin: 07/21/17 08:23 Dose: 100 mg - Labs Labs: 07/21/17 04:20 07/21/17 04:20 PT 15.3 Seconds (9.8-13.1) H 07/18/17 05:30 INR 1.4 (0.9-1.2) H 07/18/17 05:30 APTT 34.2 Seconds (25.6-37.1) 07/18/17 05:30 - Constitutional Appears: Non-toxic, No Acute Distress - Eye Exam Eye Exam: absent: Scleral icterus - ENT Exam ENT Exam: Mucous Membranes Moist - Respiratory Exam Respiratory Exam: absent: Respiratory Distress Additional comments: markedly decreased breath sounds on L; - Cardiovascular Exam Cardiovascular Exam: RRR, +S1, +S2 - GI/Abdominal Exam GI & Abdominal Exam: Soft. absent: Distended, Tenderness - Extremities Exam Additional comments: markedly edematous; - Neurological Exam Neurological Exam: Alert, Awake Additional comments: following commands; - Psychiatric Exam Psychiatric exam: absent: Agitated - Skin Skin Exam: Warm. absent: Cyanosis Assessment and Plan (1) Acute renal failure Assessment & Plan: ATN resolving; stable renal function; goal is to decrease blood pressure slowly; Status: Acute (2) Nephrotic syndrome Assessment & Plan: Secondary to diabetic nephropathy; started on KEVIN blockade with lisinopril to decrease proteinuria, cardizem added today also for anti-proteinuric effect; would like to add aldactone as well but concerns remain regarding hyperkalemia, will have to monitor since patient just started PO diet; Status: Chronic (3) Pleural effusion Assessment & Plan: R chest tube still draining; L sided effusion re-accumulating per CXR yesterday ; started on diuretics and trying to maximize anti-proteinuric meds to avoid further re-accumulation of pleural effusion in the setting of severe nephrotic syndrome but efficacy of medical management is doubtful; should consider pleurodesis; Status: Chronic (4) Hypertensive CKD (chronic kidney disease) Assessment & Plan: BP slightly better controlled today after starting lasix 40 mg IV bid as well as cardizem; continue with rest of meds; goal SBP for now should be in 150's; Status: Acute (5) Chronic kidney disease, stage 3 (moderate) Status: Chronic (6) Hypothermia Status: Acute (7) Altered mental status Status: Acute (8) SIRS (systemic inflammatory response syndrome) Status: Acute (9) Anemia Assessment & Plan: Hgb stable, continue EPO [id number] u qMWF; Status: Chronic (10) Monoclonal gammopathy Status: Chronic
[2017-07-22] MEDS: Morphine 4 MG/ML VIAL IVP SCH ×3 (01:00→08:38)
[2017-07-22] MEDS: Albuterol-Ipratrop 3 mg / 0.5 (3 ml) UD INH SCH ×4 (01:01→19:34)
[2017-07-22] MEDS: Insulin Lispro (humaLOG) 100 Units/ml Inj SC SCH ×4 (04:47→21:16)
[2017-07-22 05:59] LABS: BASO # 0.2 K/uL (0.0-0.2); BASO % 2.8 % (0.0-2.0); EOS # 0.2 K/uL (0.0-0.7); EOS % 2.6 % (0.0-4.0); HEMOGLOBIN 10.2 g/dL (12.0-18.0); LYMPH # 0.9 K/uL (1.0-4.3); LYMPH % 13.9 % (20.0-40.0); MEAN CELL VOLUME 93.6 fl (80.0-94.0); MEAN CORPUSCULAR HEMOGLOBIN 29.3 pg (27.0-31.0); MEAN CORPUSCULAR HGB CONC 31.3 g/dL (33.0-37.0); MEAN PLATELET VOLUME 9.4 fl (7.2-11.7); MONO # 0.5 K/uL (0.0-0.8); MONO % 8.3 % (0.0-10.0); NEUT # 4.8 K/uL (1.8-7.0); NEUT % 72.4 % (50.0-75.0); NRBC % 0.1 % (0.0-0.0); RBC 3.48 Mil/uL (4.40-5.90); RED CELL DISTRIBUTION WIDTH 18.7 % (11.5-14.5); WHITE BLOOD COUNT 6.6 K/uL (4.8-10.8)
[2017-07-22 06:22] LABS: ALBUMIN 2.4 g/dL (3.5-5.0)
[2017-07-22 06:30] LABS: ALB/GLOB RATIO 0.8 (1.0-2.1)
[2017-07-22] MEDS: Levothyroxine 50 MCG TAB PO SCH (06:56)
[2017-07-22] MEDS: Sodium Chloride 3% for Inhalation 4 ML VIAL.NEB IH SCH ×3 (08:02→19:35)
[2017-07-22] MEDS: diltiaZEM 120 mg/24 Hours CD Cap PO SCH (08:30)
[2017-07-22] MEDS: Bacitracin OINT 15GM TOP SCH (08:30)
[2017-07-22] MEDS: levETIRAcetam 500 MG in Sodium Chloride 0.9% 100 ML IVPB SCH ×2 (08:31→20:08)
--- NOTE | 2017-07-22 09:18 | RAD ---
PROCEDURE: CHEST RADIOGRAPH, 1 VIEW HISTORY: Left lung collapse COMPARISON: Portable chest 07/21/2017. FINDINGS: LUNGS: Persistent opacity in the left chest suspicious for will grow 8 inferior left pulmonary infiltrate and probable pleural effusion. Trace right pleural effusion remains. No pneumothorax bilaterally. Right-sided chest tube unchanged in position. Left central venous line is also unchanged. Limited patchy density is increased in the mid to inferior right lung zone. Trace right pleural effusions not excluded. Cardiac size obscured by PLEURA: No pneumothorax or pleural fluid seen. CARDIOVASCULAR: Normal. OSSEOUS STRUCTURES: No significant abnormalities. VISUALIZED UPPER ABDOMEN: Normal. OTHER FINDINGS: None. 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
--- NOTE | 2017-07-22 09:41 | CP.PCM.PN ---
Subjective - Date & Time of Evaluation Date of Evaluation: 07/22/17 Time of Evaluation: 09:41 - Subjective Subjective: CXR CONTINUES TO SHOW COMBINATION OF ATELECTASIS OND EFFUSION IN R LUNG PT'S CLINICAL CONDITION IS STILL CRITICAL WILL CONTINUE CHEST PT AND BRONCHODILATOR RX WITH MUCOMYST ?BRONCHOSCOPY WITH [facility]AVAGE Objective - Vital Signs/Intake and Output Vital Signs (last 24 hours): Temp Pulse Resp BP Pulse Ox 97.6 F 92 H 21 179/79 H 94 L 07/22/17 08:00 07/22/17 08:32 07/22/17 08:28 07/22/17 08:32 07/22/17 08:00 Intake and Output: 07/22/17 07/22/17 06:59 18:59 Intake Total 102 Output Total 1164 Balance -1062 - Medications Medications: Current Medications Albuterol/Ipratropium (Duoneb 3 Mg/0.5 Mg (3 Ml) Ud) 3 ml INH RQ6 [facility] Last Admin: 07/22/17 01:01 Dose: 3 ml Amlodipine Besylate (Norvasc) 5 mg PO Q12H [facility] Last Admin: 07/22/17 08:31 Dose: 5 mg Aspirin (Ecotrin) 81 mg PO DAILY [facility] Last Admin: 07/18/17 09:23 Dose: Not Given Bacitracin (Bacitracin Oint) 1 applic TOP DAILY [facility] Last Admin: 07/22/17 08:30 Dose: 1 applic Calcium Acetate (Phoslo) 2,001 mg PO 0830,1200,1830 [facility] Last Admin: 07/14/17 12:26 Dose: 2,001 mg Dextrose (Dextrose 50% Inj) 0 ml IV STAT PRN; Protocol PRN Reason: Hypoglycemia Protocol Dextrose (Glutose 15) 0 gm PO ONCE PRN; Protocol PRN Reason: Hypoglycemia Protocol Dextrose (Dextrose 50% Inj) 50 ml IVP Q1H PRN PRN Reason: Hypoglycemia Diltiazem HCl (Cardizem Cd) 120 mg PO DAILY [facility] Last Admin: 07/22/17 08:30 Dose: 120 mg Epoetin Roel (Procrit) 14,000 unit SC MWF [facility] Last Admin: 07/21/17 08:22 Dose: 14,000 unit Fluconazole (Diflucan) 200 mg PO DAILY [facility] PRN Reason: Protocol Last Admin: 07/22/17 08:30 Dose: 200 mg Furosemide (Lasix) 40 mg IVP BID [facility] Last Admin: 07/22/17 08:31 Dose: 40 mg Glucagon (Glucagen Diagnostic Kit) 0 mg IM STAT PRN; Protocol PRN Reason: Hypoglycemia Protocol Heparin Sodium (Porcine) (Heparin) 5,000 units SC Q12 [facility] PRN Reason: Protocol Last Admin: 07/22/17 08:30 Dose: 5,000 units Hydralazine HCl (Apresoline) 50 mg PO Q8 [facility] Last Admin: 07/22/17 08:29 Dose: 50 mg Levetiracetam 500 mg/ Sodium (Chloride) 105 mls @ 210 mls/hr IVPB Q12 [facility] Last Admin: 07/22/17 08:31 Dose: 210 mls/hr Cefepime HCl 1 gm/ Sodium (Chloride) 50 mls @ 50 mls/hr IVPB DAILY [facility] PRN Reason: Protocol Last Admin: 07/21/17 09:02 Dose: 50 mls/hr Insulin Human Lispro (Humalog) 0 units SC Q6H [facility] PRN Reason: Protocol Last Admin: 07/22/17 04:47 Dose: Not Given Levothyroxine Sodium (Synthroid) 50 mcg PO DAILY@0630 [facility] Last Admin: 07/22/17 06:56 Dose: 50 mcg Lisinopril (Zestril) 40 mg PO DAILY [facility] Last Admin: 07/22/17 08:32 Dose: 40 mg Morphine Sulfate (Morphine) 2 mg IVP Q6 PRN PRN Reason: Pain, severe (8-10) Last Admin: 07/20/17 04:08 Dose: 2 mg Morphine Sulfate (Morphine) 1 mg IVP Q4 [facility] Last Admin: 07/22/17 08:38 Dose: 1 mg Pantoprazole Sodium (Protonix Inj) 40 mg IVP Q12 [facility] Last Admin: 07/22/17 08:32 Dose: 40 mg Sodium Bicarbonate (Sodium Bicarbonate Tab) 1,300 mg PO Q8 [facility] Last Admin: 07/02/17 16:23 Dose: 1,300 mg Spironolactone (Aldactone) 25 mg PO BID [facility] Thiamine HCl (Vitamin B1 Tab) 100 mg PO DAILY [facility] Last Admin: 07/22/17 08:32 Dose: 100 mg - Labs Labs: 07/22/17 05:00 07/22/17 05:00 PT 15.3 Seconds (9.8-13.1) H 07/18/17 05:30 INR 1.4 (0.9-1.2) H 07/18/17 05:30 APTT 34.2 Seconds (25.6-37.1) 07/18/17 05:30
--- NOTE | 2017-07-22 09:52 | CP.PCM.PN ---
Subjective - Date & Time of Evaluation Date of Evaluation: 07/22/17 Time of Evaluation: 07:15 - Subjective Subjective: Vital Signs: 36.4- 87- 161/69- 17- 96% (4LNC) Chest Tube Rt Post: 1050ml/+300ml total/24hr Chest Tube Rt Ant: 190ml/+25ml total/24hr LEFT subclavian: patent, non-erythematous Salazar Catheter: Cloudy, yellow urine 66M awake, alert on entering the room. Patient's voice continues to improve and is stronger. He c/o pain at RIGHT chest wall 01/06 this morning, denies SOB, N/V , or having any BMs. Otherwise no acute complaints. Objective - Vital Signs/Intake and Output Vital Signs (last 24 hours): Temp Pulse Resp BP Pulse Ox 36.4 C 92 H 21 179/79 H 94 L 07/22/17 08:00 07/22/17 08:32 07/22/17 08:28 07/22/17 08:32 07/22/17 08:00 Intake and Output: 07/22/17 07/22/17 06:59 18:59 Intake Total 102 Output Total 1164 Balance -1062 - Medications Medications: Current Medications Acetylcysteine (Acetylcysteine 20%) 2 ml INH RBID [facility] Albuterol/Ipratropium (Duoneb 3 Mg/0.5 Mg (3 Ml) Ud) 3 ml INH RQ6 [facility] Last Admin: 07/22/17 01:01 Dose: 3 ml Amlodipine Besylate (Norvasc) 5 mg PO Q12H [facility] Last Admin: 07/22/17 08:31 Dose: 5 mg Aspirin (Ecotrin) 81 mg PO DAILY [facility] Last Admin: 07/18/17 09:23 Dose: Not Given Bacitracin (Bacitracin Oint) 1 applic TOP DAILY [facility] Last Admin: 07/22/17 08:30 Dose: 1 applic Calcium Acetate (Phoslo) 2,001 mg PO 0830,1200,1830 [facility] Last Admin: 07/14/17 12:26 Dose: 2,001 mg Dextrose (Dextrose 50% Inj) 0 ml IV STAT PRN; Protocol PRN Reason: Hypoglycemia Protocol Dextrose (Glutose 15) 0 gm PO ONCE PRN; Protocol PRN Reason: Hypoglycemia Protocol Dextrose (Dextrose 50% Inj) 50 ml IVP Q1H PRN PRN Reason: Hypoglycemia Diltiazem HCl (Cardizem Cd) 120 mg PO DAILY [facility] Last Admin: 07/22/17 08:30 Dose: 120 mg Epoetin Roel (Procrit) 14,000 unit SC MWF [facility] Last Admin: 07/21/17 08:22 Dose: 14,000 unit Fluconazole (Diflucan) 200 mg PO DAILY [facility] PRN Reason: Protocol Last Admin: 07/22/17 08:30 Dose: 200 mg Furosemide (Lasix) 40 mg IVP BID [facility] Last Admin: 07/22/17 08:31 Dose: 40 mg Glucagon (Glucagen Diagnostic Kit) 0 mg IM STAT PRN; Protocol PRN Reason: Hypoglycemia Protocol Heparin Sodium (Porcine) (Heparin) 5,000 units SC Q12 [facility] PRN Reason: Protocol Last Admin: 07/22/17 08:30 Dose: 5,000 units Hydralazine HCl (Apresoline) 50 mg PO Q8 [facility] Last Admin: 07/22/17 08:29 Dose: 50 mg Levetiracetam 500 mg/ Sodium (Chloride) 105 mls @ 210 mls/hr IVPB Q12 [facility] Last Admin: 07/22/17 08:31 Dose: 210 mls/hr Cefepime HCl 1 gm/ Sodium (Chloride) 50 mls @ 50 mls/hr IVPB DAILY [facility] PRN Reason: Protocol Last Admin: 07/21/17 09:02 Dose: 50 mls/hr Insulin Human Lispro (Humalog) 0 units SC Q6H [facility] PRN Reason: Protocol Last Admin: 07/22/17 04:47 Dose: Not Given Levothyroxine Sodium (Synthroid) 50 mcg PO DAILY@0630 [facility] Last Admin: 07/22/17 06:56 Dose: 50 mcg Lisinopril (Zestril) 40 mg PO DAILY [facility] Last Admin: 07/22/17 08:32 Dose: 40 mg Morphine Sulfate (Morphine) 2 mg IVP Q6 PRN PRN Reason: Pain, severe (8-10) Last Admin: 07/20/17 04:08 Dose: 2 mg Morphine Sulfate (Morphine) 1 mg IVP Q4 [facility] Last Admin: 07/22/17 08:38 Dose: 1 mg Pantoprazole Sodium (Protonix Inj) 40 mg IVP Q12 [facility] Last Admin: 07/22/17 08:32 Dose: 40 mg Sodium Bicarbonate (Sodium Bicarbonate Tab) 1,300 mg PO Q8 [facility] Last Admin: 07/02/17 16:23 Dose: 1,300 mg Spironolactone (Aldactone) 25 mg PO BID [facility] Thiamine HCl (Vitamin B1 Tab) 100 mg PO DAILY [facility] Last Admin: 07/22/17 08:32 Dose: 100 mg - Labs Labs: 07/22/17 05:00 07/22/17 05:00 PT 15.3 Seconds (9.8-13.1) H 07/18/17 05:30 INR 1.4 (0.9-1.2) H 07/18/17 05:30 APTT 34.2 Seconds (25.6-37.1) 07/18/17 05:30 - Constitutional Appears: Non-toxic, No Acute Distress - Head Exam Head Exam: ATRAUMATIC, NORMAL INSPECTION - Eye Exam Eye Exam: Normal appearance - ENT Exam ENT Exam: Mucous Membranes Moist - Neck Exam Neck Exam: Full ROM, Normal Inspection - Respiratory Exam Respiratory Exam: Decreased Breath Sounds (low-mid LEFT lung), NORMAL BREATHING PATTERN - Cardiovascular Exam Cardiovascular Exam: REGULAR RHYTHM, +S1, +S2 - GI/Abdominal Exam GI & Abdominal Exam: Soft, Normal Bowel Sounds - Extremities Exam Extremities Exam: Normal Capillary Refill, Pedal Edema - Neurological Exam Neurological Exam: Alert, Awake - Psychiatric Exam Psychiatric exam: Normal Affect - Skin Skin Exam: Dry, Warm Assessment and Plan - Assessment and Plan (Free Text) Assessment: 66M currently critical but stable. Goals are strengthening, nutrition, and pleural effusion control. Plan: 1) Acute Respiratory Failure secondary to recurrent pleural effusions thought to be secondary to nephrotic syndrome after competing etiologies investigated. Pt is now extubated, on 4LNC, still requiring right - sided chest tubes (Post/ Ant) with the posterior draining ~300cc/daily. The left lung continues with mod -large loculated effusion and post-obstructive atelectasis picture. - c/w nasal cannula, will have some oxygen requirement due to pulmonary condition - Bed program for Chest PT Q4H, c/w suctioning when possible - CT Surgery Consult (Dr Gnanon) appreciated: Chest tubes to water seal, ?pleurex catheter Thurs/Fri, a cautionary note is it is unclear how patient will be able to care for and manage this pleurex catheter should he be discharged. Patient not a good candidate for aggressive intervention on LEFT loculated effusion. - Pulmonary Consult (Dr Raymond)appreciated: Chest PT, bronchodilators, mucomyst , will re-eval for role of bronchoscopy but unlikely - ID Consult (Dr Dolan) appreciated: - Nephrology Consult (Dr Luz) appreciated: c/w attempts to control nephrotic syndrome with ACEI/CCB, Aldactone being held for concerns of hyperkalemia. Anemia being treated with EPO MWF. HTN 2/2 CKD: Lasix 40mg, BID 3) Hypernatremia- Rising again - monitor with BMP - Will f/u Nephrology recommendations 4) HAP- awaiting Procalcitonin, would like to d/c Cefepime. - ID consultation (Dr Dolan) appreciated - c/w cefepime but would like to discontinue - f/u Procalcitonin (last was 0.71H) 5) DM nephropathy - Kidney biopsy 06/05/17: Diabetic nephropathy, nodular glomerulosclerosis, associated with aprox 40 % globally sclerosed glomeruli( calss III), 10-15 % segmentally sclerosed glomeruli, docal moderate interstitial fibrosis and mod vascular sclerosis, including marked hyaline arteriolosclerosis.NO EVIDENCE OF MONOCLONAL LIGHT OR HEAVY CHAIN-RELATED RENAL DISEASE. Renal duplex: no renal vein thrombosis - Renal duplex: no renal vein thrombosis 6) CKD stage 4- BUN/Cr rising, but stable - Monitor BUN/Cr 7) Hypothyroidism, subclinical: TSH- 3.31 - Econdrinologist consult (Dr Mann) appreciated - c/w levothryroxin 50 mcg daily 8) Hyperprolactinemia -Prolactin trending down last 27.1 -MRI brain:no intra-cranial hemorrhage, chronic lacunar infarct b/l cerebral, changes in dali may represent chronic ischemia or sequela of osmotic myelonilolysis not excluded.chronic b/l basal nuclei lacunar infarcts, mastoid opacification secondary to intubation 9) Pressure Ulcer and TDI -improving 10) pEF CHF - Echo 05/31/17 normal EF 60-65% - Pt on ACEI 11) DM 2: stable - Lispro, SSI, Low dose - Accu-checks 12) HTN - Hydralazine 50 Q8 - Lisinopril 40mg, Daily - Norvasc 5mg, Q12H (d/w [employer] substitute [employer]) - Cardizem 120mg, PO, Daily 13) Anemia- stable - secondary to CKD - c/w Saul WARREN 14) DVT prophylaxis - Heparin 5,000U, SC, Q12H 15) GI prophylaxis -Pantoprazol 40 mg IV
--- NOTE | 2017-07-22 10:09 | CP.PCM.PN ---
Subjective - Date & Time of Evaluation Date of Evaluation: 07/22/17 Time of Evaluation: 10:06 - Subjective Subjective: CT surgery pregress note for Dr. Gannon Pt seen and examined no acute events overnight. Serosang output in chest tube with approximately 200 from anterior and 300 from posterior. Continue with CT to water seal. Objective - Vital Signs/Intake and Output Vital Signs (last 24 hours): Temp Pulse Resp BP Pulse Ox 97.6 F 92 H 21 179/79 H 94 L 07/22/17 08:00 07/22/17 08:32 07/22/17 08:28 07/22/17 08:32 07/22/17 08:00 Intake and Output: 07/22/17 07/22/17 06:59 18:59 Intake Total 102 100 Output Total 1164 Balance -1062 100 - Medications Medications: Current Medications Acetylcysteine (Acetylcysteine 20%) 2 ml INH RBID [facility] Albuterol/Ipratropium (Duoneb 3 Mg/0.5 Mg (3 Ml) Ud) 3 ml INH RQ6 [facility] Last Admin: 07/22/17 01:01 Dose: 3 ml Amlodipine Besylate (Norvasc) 5 mg PO Q12H [facility] Last Admin: 07/22/17 08:31 Dose: 5 mg Aspirin (Ecotrin) 81 mg PO DAILY [facility] Last Admin: 07/18/17 09:23 Dose: Not Given Bacitracin (Bacitracin Oint) 1 applic TOP DAILY [facility] Last Admin: 07/22/17 08:30 Dose: 1 applic Calcium Acetate (Phoslo) 2,001 mg PO 0830,1200,1830 [facility] Last Admin: 07/14/17 12:26 Dose: 2,001 mg Dextrose (Dextrose 50% Inj) 0 ml IV STAT PRN; Protocol PRN Reason: Hypoglycemia Protocol Dextrose (Glutose 15) 0 gm PO ONCE PRN; Protocol PRN Reason: Hypoglycemia Protocol Dextrose (Dextrose 50% Inj) 50 ml IVP Q1H PRN PRN Reason: Hypoglycemia Diltiazem HCl (Cardizem Cd) 120 mg PO DAILY [facility] Last Admin: 07/22/17 08:30 Dose: 120 mg Epoetin Roel (Procrit) 14,000 unit SC MWF [facility] Last Admin: 07/21/17 08:22 Dose: 14,000 unit Fluconazole (Diflucan) 200 mg PO DAILY [facility] PRN Reason: Protocol Last Admin: 07/22/17 08:30 Dose: 200 mg Furosemide (Lasix) 40 mg IVP BID [facility] Last Admin: 07/22/17 08:31 Dose: 40 mg Glucagon (Glucagen Diagnostic Kit) 0 mg IM STAT PRN; Protocol PRN Reason: Hypoglycemia Protocol Heparin Sodium (Porcine) (Heparin) 5,000 units SC Q12 [facility] PRN Reason: Protocol Last Admin: 07/22/17 08:30 Dose: 5,000 units Hydralazine HCl (Apresoline) 50 mg PO Q8 [facility] Last Admin: 07/22/17 08:29 Dose: 50 mg Levetiracetam 500 mg/ Sodium (Chloride) 105 mls @ 210 mls/hr IVPB Q12 [facility] Last Admin: 07/22/17 08:31 Dose: 210 mls/hr Cefepime HCl 1 gm/ Sodium (Chloride) 50 mls @ 50 mls/hr IVPB DAILY [facility] PRN Reason: Protocol Last Admin: 07/21/17 09:02 Dose: 50 mls/hr Insulin Human Lispro (Humalog) 0 units SC Q6H [facility] PRN Reason: Protocol Last Admin: 07/22/17 04:47 Dose: Not Given Levothyroxine Sodium (Synthroid) 50 mcg PO DAILY@0630 [facility] Last Admin: 07/22/17 06:56 Dose: 50 mcg Lisinopril (Zestril) 40 mg PO DAILY [facility] Last Admin: 07/22/17 08:32 Dose: 40 mg Morphine Sulfate (Morphine) 2 mg IVP Q6 PRN PRN Reason: Pain, severe (8-10) Last Admin: 07/20/17 04:08 Dose: 2 mg Morphine Sulfate (Morphine) 1 mg IVP Q4 [facility] Last Admin: 07/22/17 08:38 Dose: 1 mg Pantoprazole Sodium (Protonix Inj) 40 mg IVP Q12 [facility] Last Admin: 07/22/17 08:32 Dose: 40 mg Sodium Bicarbonate (Sodium Bicarbonate Tab) 1,300 mg PO Q8 [facility] Last Admin: 07/02/17 16:23 Dose: 1,300 mg Spironolactone (Aldactone) 25 mg PO BID [facility] Thiamine HCl (Vitamin B1 Tab) 100 mg PO DAILY [facility] Last Admin: 07/22/17 08:32 Dose: 100 mg - Labs Labs: 07/22/17 05:00 07/22/17 05:00 PT 15.3 Seconds (9.8-13.1) H 07/18/17 05:30 INR 1.4 (0.9-1.2) H 07/18/17 05:30 APTT 34.2 Seconds (25.6-37.1) 07/18/17 05:30 - Constitutional Appears: Non-toxic, No Acute Distress - Head Exam Head Exam: ATRAUMATIC, NORMAL INSPECTION, NORMOCEPHALIC - Eye Exam Eye Exam: EOMI, Normal appearance - ENT Exam ENT Exam: Mucous Membranes Moist, Normal Exam - Neck Exam Neck Exam: Full ROM, Normal Inspection - Respiratory Exam Respiratory Exam: NORMAL BREATHING PATTERN - Cardiovascular Exam Cardiovascular Exam: REGULAR RHYTHM, +S1, +S2 Additional comments: Left chest wall with dressing in place-clean/dry/intact - GI/Abdominal Exam GI & Abdominal Exam: Soft. absent: Distended, Firm, Guarding, Rigid, Tenderness - Neurological Exam Neurological Exam: Awake - Skin Skin Exam: Dry, Intact, Normal Color, Warm Assessment and Plan - Assessment and Plan (Free Text) Assessment: 66M POD#7 s/p mini R mini thoracotamy and anterior and posterior chest tube placement, and removal of traumatic chest tube. Plan: Patient continues to be stable R CTs to suction Monitor outputs FU daily CXRs Cont Aggressive pulmonary toilet No surgical intervention at this time May need pleurodesis in the future, however pt needs to be medically optimized - CCB, aldactone, loop diuretics as per nephrology Will follow Will KENYA attending [facility] PGY2
[2017-07-22] MEDS: Cefepime 1 GM in Sodium Chloride 0.9% 50 ML IVPB SCH (11:13)
[2017-07-22] MEDS: Morphine 4 MG/ML VIAL IVP PRN (11:24)
--- NOTE | 2017-07-22 12:52 | CP.PCM.PN ---
Subjective - Date & Time of Evaluation Date of Evaluation: 07/22/17 Time of Evaluation: 12:43 - Subjective Subjective: Pt s/e. Continue to drain a large effusion from right. Issue of mucus plug left persists. I am incline to place Pleurex cath right so that he could be readily ambulated ( to open up the left lung), and make a detention care plan without cumbersome chest tubes. d/w Dr. Ellis, and with Drs. Wagner and Julio. For surgery on or Friday. Objective - Vital Signs/Intake and Output Vital Signs (last 24 hours): Temp Pulse Resp BP Pulse Ox 98.1 F 78 16 140/58 L 95 07/22/17 12:00 07/22/17 12:00 07/22/17 12:00 07/22/17 12:00 07/22/17 12:00 Intake and Output: 07/22/17 07/22/17 06:59 18:59 Intake Total 102 400 Output Total 1164 Balance -1062 400 - Medications Medications: Current Medications Acetylcysteine (Acetylcysteine 20%) 2 ml INH RBID THOMAS Albuterol/Ipratropium (Duoneb 3 Mg/0.5 Mg (3 Ml) Ud) 3 ml INH RQ6 [facility] Last Admin: 07/22/17 01:01 Dose: 3 ml Amlodipine Besylate (Norvasc) 5 mg PO Q12H [facility] Last Admin: 07/22/17 08:31 Dose: 5 mg Aspirin (Ecotrin) 81 mg PO DAILY [facility] Last Admin: 07/18/17 09:23 Dose: Not Given Bacitracin (Bacitracin Oint) 1 applic TOP DAILY [facility] Last Admin: 07/22/17 08:30 Dose: 1 applic Calcium Acetate (Phoslo) 2,001 mg PO 0830,1200,1830 [facility] Last Admin: 07/14/17 12:26 Dose: 2,001 mg Dextrose (Dextrose 50% Inj) 0 ml IV STAT PRN; Protocol PRN Reason: Hypoglycemia Protocol Dextrose (Glutose 15) 0 gm PO ONCE PRN; Protocol PRN Reason: Hypoglycemia Protocol Dextrose (Dextrose 50% Inj) 50 ml IVP Q1H PRN PRN Reason: Hypoglycemia Diltiazem HCl (Cardizem Cd) 120 mg PO DAILY [facility] Last Admin: 07/22/17 08:30 Dose: 120 mg Epoetin Roel (Procrit) 14,000 unit SC MWF [facility] Last Admin: 07/21/17 08:22 Dose: 14,000 unit Fluconazole (Diflucan) 200 mg PO DAILY [facility] PRN Reason: Protocol Last Admin: 07/22/17 08:30 Dose: 200 mg Furosemide (Lasix) 40 mg IVP BID [facility] Last Admin: 07/22/17 08:31 Dose: 40 mg Glucagon (Glucagen Diagnostic Kit) 0 mg IM STAT PRN; Protocol PRN Reason: Hypoglycemia Protocol Heparin Sodium (Porcine) (Heparin) 5,000 units SC Q12 [facility] PRN Reason: Protocol Last Admin: 07/22/17 08:30 Dose: 5,000 units Hydralazine HCl (Apresoline) 50 mg PO Q8 [facility] Last Admin: 07/22/17 08:29 Dose: 50 mg Levetiracetam 500 mg/ Sodium (Chloride) 105 mls @ 210 mls/hr IVPB Q12 [facility] Last Admin: 07/22/17 08:31 Dose: 210 mls/hr Cefepime HCl 1 gm/ Sodium (Chloride) 50 mls @ 50 mls/hr IVPB DAILY [facility] PRN Reason: Protocol Last Admin: 07/22/17 11:13 Dose: 50 mls/hr Insulin Human Lispro (Humalog) 0 units SC Q6H [facility] PRN Reason: Protocol Last Admin: 07/22/17 11:14 Dose: Not Given Levothyroxine Sodium (Synthroid) 50 mcg PO DAILY@0630 [facility] Last Admin: 07/22/17 06:56 Dose: 50 mcg Lisinopril (Zestril) 40 mg PO DAILY [facility] Last Admin: 07/22/17 08:32 Dose: 40 mg Oxycodone/Acetaminophen (Percocet 5/325 Mg Tab) 1 tab PO Q4 [facility] Stop: 07/25/17 13:01 Pantoprazole Sodium (Protonix Inj) 40 mg IVP Q12 [facility] Last Admin: 07/22/17 08:32 Dose: 40 mg Sodium Bicarbonate (Sodium Bicarbonate Tab) 1,300 mg PO Q8 [facility] Last Admin: 07/02/17 16:23 Dose: 1,300 mg Spironolactone (Aldactone) 25 mg PO BID [facility] Last Admin: 07/22/17 11:14 Dose: 25 mg Thiamine HCl (Vitamin B1 Tab) 100 mg PO DAILY [facility]OMAS Last Admin: 07/22/17 08:32 Dose: 100 mg - Labs Labs: 07/22/17 05:00 07/22/17 05:00 PT 15.3 Seconds (9.8-13.1) H 07/18/17 05:30 INR 1.4 (0.9-1.2) H 07/18/17 05:30 APTT 34.2 Seconds (25.6-37.1) 07/18/17 05:30
[2017-07-22] MEDS: Oxycodone/Acetaminophen 5/325 mg Tab PO SCH ×3 (13:18→21:00)
--- NOTE | 2017-07-22 14:19 | CP.CCUPN ---
<MaganaLori munroe - Last Filed: 07/22/17 14:16> CCU Subjective - Physician Review Subjective (Free Text): Patient awake and alert this AM. Voice is stronger today. He has pain of right chest tubes site. Both tubes are to waterseal. No other complaints. On high flow, switched over to NC this morning, patient tolerated. Tolerated pureed/thickened diet. Vital signs reviewed, BP uncontrolled. Labs, imaging and I/Os reviewed. Right Posterior CT: 310/12hr Right anterior CT: 186 / 12hr Urine output: 1000 12/hr CCU Objective - Vital Signs / Intake & Output Vital Signs (Last 4 hours): Vital Signs Temp Pulse Resp BP Pulse Ox 07/22/17 14:00 77 15 151/67 H 97 07/22/17 12:00 98.1 F 78 16 140/58 L 95 Intake and Output (Last 8hrs): Intake & Output 07/21/17 07/22/17 07/22/17 22:59 06:59 14:59 Intake Total 340 2 740 Output Total 1432 1164 Balance -1092 -1162 740 Intake: IV 0 2 Intake, Piggyback 100 200 Oral 240 540 Output: Chest Tube Drainage 332 164 Right Anterior Chest 32 154 Right Posterior Chest 300 10 Urine 1100 1000 Urethral ([place]) 1100 1000 - Physical Exam Head: Positive for: Atraumatic, Normocephalic Pupils: Positive for: PERRL Conjunctiva: Negative for: Icteric Mouth: Positive for: Moist Mucous Membranes. Negative for: Dry Nose (External): Negative for: Lesions Neck: Positive for: Normal Range of Motion (Supple ), Other (central line: left neck in place with dressing, clean and dry.) Respiratory/Chest: Positive for: Decreased Breath Sounds (L), Rhonchi (right chest, left chest decreased breath sounds). Negative for: Respiratory Distress , Wheezes Cardiovascular: Positive for: Regular Rate and Rhythm, Normal S1, S2 Abdomen: Positive for: Tenderness, Other (soft). Negative for: Distention Upper Extremity: Positive for: Edema (bilateral 2+ pitting edema; right > left) Lower Extremity: Negative for: Edema, CALF TENDERNESS Neurological: Positive for: Other (speech improving, not at baseline) Skin: Positive for: Warm, Dry, Other (skin tear back of left hand, healing. multiple blisters around tape on right chest) Psychiatric: Positive for: Alert, Oriented x 3 (difficult to speech), Depressed Mood - Medications Active Medications: Active Medications Generic Name Dose Route Start Last Admin Trade Name Freq PRN Reason Stop Dose Admin Acetylcysteine 2 ml 07/22/17 20:00 Acetylcysteine 20% INH RBID THOMAS Albuterol/Ipratropium 3 ml 07/18/17 14:00 07/22/17 01:01 Duoneb 3 Mg/0.5 Mg (3 Ml) Ud INH 3 ml RQ6 THOMAS Administration Amlodipine Besylate 5 mg 07/20/17 08:45 07/22/17 08:31 Norvasc PO 5 mg Q12H THOMAS Administration Aspirin 81 mg 07/14/17 09:00 07/18/17 09:23 Ecotrin PO Not Given DAILY THOMAS Bacitracin 1 applic 07/11/17 09:00 07/22/17 08:30 Bacitracin Oint TOP 1 applic DAILY THOMAS Administration Calcium Acetate 2,001 mg 07/05/17 08:30 07/14/17 12:26 Phoslo PO 2,001 mg 0830,1200,1830 THOMAS Administration Dextrose 0 ml 06/22/17 22:36 Dextrose 50% Inj IV STAT PRN Hypoglycemia Protocol Protocol Dextrose 0 gm 06/22/17 22:36 Glutose 15 PO ONCE PRN Hypoglycemia Protocol Protocol Dextrose 50 ml 07/14/17 14:52 Dextrose 50% Inj IVP Q1H PRN Hypoglycemia Diltiazem HCl 120 mg 07/22/17 09:00 07/22/17 08:30 Cardizem Cd PO 120 mg DAILY THOMAS Administration Epoetin Roel 14,000 unit 07/07/17 09:00 07/21/17 08:22 Procrit SC 14,000 unit MWF THOMAS Administration Fluconazole 200 mg 07/12/17 09:00 07/22/17 08:30 Diflucan PO 200 mg DAILY THOMAS Administration Protocol Furosemide 40 mg 07/21/17 09:00 07/22/17 08:31 Lasix IVP 40 mg BID THOMAS Administration Glucagon 0 mg 06/22/17 22:36 Glucagen Diagnostic Kit IM STAT PRN Hypoglycemia Protocol Protocol Heparin Sodium (Porcine) 5,000 units 07/17/17 21:00 07/22/17 08:30 Heparin SC 5,000 units Q12 THOMAS Administration Protocol Hydralazine HCl 50 mg 07/19/17 13:24 07/22/17 08:29 Apresoline PO 50 mg Q8 THOMAS Administration Levetiracetam 500 mg/ Sodium 105 mls @ 210 mls/hr 07/04/17 21:00 07/22/17 08: 31 Chloride IVPB 210 mls/hr Q12 THOMAS Administration Cefepime HCl 1 gm/ Sodium 50 mls @ 50 mls/hr 07/13/17 09:00 07/22/17 11:13 Chloride IVPB 50 mls/hr DAILY THOMAS Administration Protocol Insulin Human Lispro 0 units 07/12/17 09:45 07/22/17 11:14 Humalog SC Not Given Q6H THOMAS Protocol Levothyroxine Sodium 50 mcg 07/05/17 06:30 07/22/17 06:56 Synthroid PO 50 mcg DAILY@0630 THOMAS Administration Lisinopril 40 mg 07/19/17 12:45 07/22/17 08:32 Zestril PO 40 mg DAILY THOMAS Administration Oxycodone/Acetaminophen 1 tab 07/22/17 13:00 Percocet 5/325 Mg Tab PO 07/25/17 13:01 Q4 THOMAS Pantoprazole Sodium 40 mg 07/08/17 21:00 07/22/17 08:32 Protonix Inj IVP 40 mg Q12 THOMAS Administration Sodium Bicarbonate 1,300 mg 06/30/17 17:00 07/02/17 16:23 Sodium Bicarbonate Tab PO 1,300 mg Q8 THOMAS Administration Spironolactone 25 mg 07/22/17 09:00 07/22/17 11:14 Aldactone PO 25 mg BID THOMAS Administration Thiamine HCl 100 mg 07/15/17 09:00 07/22/17 08:32 Vitamin B1 Tab PO 100 mg DAILY THOMAS Administration - Patient Studies Lab Studies: Microbiology Studies 06/25/17 16:51 Fungal Culture - Preliminary Pleural Fluid NO FUNGUS GROWTH IN 3 WEEKS. 07/07/17 06:17 Mycobacterial Culture - Preliminary Other: Please Indicate 07/06/17 10:31 Mycobacterial Culture - Preliminary Other: Please Indicate 07/06/17 19:20 Mycobacterial Culture - Preliminary Other: Please Indicate Lab Studies 07/22/17 07/22/17 07/22/17 Range/Units 11:13 05:00 05:00 WBC 6.6 (4.8-10.8) K/uL RBC 3.48 L (4.40-5.90) Mil/uL Hgb 10.2 L (12.0-18.0) g/dL Hct 32.6 L (35.0-51.0) % MCV 93.6 (80.0-94.0) fl MCH 29.3 (27.0-31.0) pg MCHC 31.3 L (33.0-37.0) g/dL RDW 18.7 H (11.5-14.5) % Plt Count 334 (130-400) K/uL MPV 9.4 (7.2-11.7) fl Neut % (Auto) 72.4 (50.0-75.0) % Lymph % (Auto) 13.9 L (20.0-40.0) % Mower % (Auto) 8.3 (0.0-10.0) % Eos % (Auto) 2.6 (0.0-4.0) % Baso % (Auto) 2.8 H (0.0-2.0) % Neut # 4.8 (1.8-7.0) K/uL Lymph # 0.9 L (1.0-4.3) K/uL Mower # 0.5 (0.0-0.8) K/uL Eos # 0.2 (0.0-0.7) K/uL Baso # 0.2 (0.0-0.2) K/uL Sodium 149 H (132-148) mmol/l Potassium 3.9 (3.6-5.0) MMOL/L Chloride 119 H (98-107) mmol/L Carbon Dioxide 22 (22-30) mmol/L Anion Gap 12 (10-20) BUN 27 H (9-20) mg/dl Creatinine 2.1 H (0.8-1.5) mg/dl Est GFR ( Amer) 38 Est GFR (Non-Af Amer) 32 POC Glucose (mg/dL) 126 H (65-110) mg/dL Random Glucose 108 (75-110) mg/dL Calcium 8.0 L (8.4-10.2) mg/dL Total Bilirubin 0.4 (0.2-1.3) mg/dl AST 16 L (17-59) U/L ALT 20 L (21-72) U/L Alkaline Phosphatase 153 H (38-126) U/L Total Protein 5.4 L (6.3-8.2) G/DL Albumin 2.4 L (3.5-5.0) g/dL Globulin 2.9 (2.2-3.9) gm/dL Albumin/Globulin Ratio 0.8 L (1.0-2.1) 07/22/17 07/21/17 07/21/17 Range/Units 04:42 22:04 16:02 WBC (4.8-10.8) K/uL RBC (4.40-5.90) Mil/uL Hgb (12.0-18.0) g/dL Hct (35.0-51.0) % MCV (80.0-94.0) fl MCH (27.0-31.0) pg MCHC (33.0-37.0) g/dL RDW (11.5-14.5) % Plt Count (130-400) K/uL MPV (7.2-11.7) fl Neut % (Auto) (50.0-75.0) % Lymph % (Auto) (20.0-40.0) % Mower % (Auto) (0.0-10.0) % Eos % (Auto) (0.0-4.0) % Baso % (Auto) (0.0-2.0) % Neut # (1.8-7.0) K/uL Lymph # (1.0-4.3) K/uL Mower # (0.0-0.8) K/uL Eos # (0.0-0.7) K/uL Baso # (0.0-0.2) K/uL Sodium (132-148) mmol/l Potassium (3.6-5.0) MMOL/L Chloride (98-107) mmol/L Carbon Dioxide (22-30) mmol/L Anion Gap (10-20) BUN (9-20) mg/dl Creatinine (0.8-1.5) mg/dl Est GFR ( Amer) Est GFR (Non-Af Amer) POC Glucose (mg/dL) 108 147 H 131 H (65-110) mg/dL Random Glucose (75-110) mg/dL Calcium (8.4-10.2) mg/dL Total Bilirubin (0.2-1.3) mg/dl AST (17-59) U/L ALT (21-72) U/L Alkaline Phosphatase (38-126) U/L Total Protein (6.3-8.2) G/DL Albumin (3.5-5.0) g/dL Globulin (2.2-3.9) gm/dL Albumin/Globulin Ratio (1.0-2.1) Laboratory Results - last 24 hr 07/21/17 07/21/17 07/22/17 16:02 22:04 04:42 WBC RBC Hgb Hct MCV MCH MCHC RDW Plt Count MPV Neut % (Auto) Lymph % (Auto) Mower % (Auto) Eos % (Auto) Baso % (Auto) Neut # Lymph # Mower # Eos # Baso # Sodium Potassium Chloride Carbon Dioxide Anion Gap BUN Creatinine Est GFR ( Amer) Est GFR (Non-Af Amer) POC Glucose (mg/dL) 131 H 147 H 108 Random Glucose Calcium Total Bilirubin AST ALT Alkaline Phosphatase Total Protein Albumin Globulin Albumin/Globulin Ratio 07/22/17 07/22/17 07/22/17 05:00 05:00 11:13 WBC 6.6 RBC 3.48 L Hgb 10.2 L Hct 32.6 L MCV 93.6 MCH 29.3 MCHC 31.3 L RDW 18.7 H Plt Count 334 MPV 9.4 Neut % (Auto) 72.4 Lymph % (Auto) 13.9 L Mower % (Auto) 8.3 Eos % (Auto) 2.6 Baso % (Auto) 2.8 H Neut # 4.8 Lymph # 0.9 L Mower # 0.5 Eos # 0.2 Baso # 0.2 Sodium 149 H Potassium 3.9 Chloride 119 H Carbon Dioxide 22 Anion Gap 12 BUN 27 H Creatinine 2.1 H Est GFR ( Amer) 38 Est GFR (Non-Af Amer) 32 POC Glucose (mg/dL) 126 H Random Glucose 108 Calcium 8.0 L Total Bilirubin 0.4 AST 16 L ALT 20 L Alkaline Phosphatase 153 H Total Protein 5.4 L Albumin 2.4 L Globulin 2.9 Albumin/Globulin Ratio 0.8 L Fingerstick Blood Sugar Results: 126 Critical Care Progress Note - Nutrition Nutrition: Nutrition Category Date Time Status Dysphagia/Modified Consistency Diet [DIET] Diets 07/18/17 Dinner Active Assessment/Plan - Assessment and Plan (Free Text) Assessment: 66 M with recurrent pleural effusions, HAP, CKD, DM nephropathy with nephrotic syndrome, HTN, Anemia. Patient clinically improving gradually. given that he was intubated for acute respiratory failure, need to monitor his respiratory status closely. Case d/w Dr. Gannon, he plans to put pleurex catheter this or Friday. Neuro: Patient awake and alert. Speaking more clearly. ?seizures, prolactin trending down. MRI reviewed. Pt currently on Keppra. Neurology following patient. Cardiovascular: HTN: On Norvasc, Cardizem, Lasix, hydralazine, Zestril. Remains uncontrolled. Respiratory: B/L pleural effusions, HAP: Patient on NC, tolerating well. However given bilateral effusions, if he becomes hypoxic/tachypneic will put back on high flow o2. CXR reviewed. Chest PT Q4H. 2 chest tubes on right chest. Pulmonary is following, ?bronchoscopy. Surgery is following. Possible pleurex catheter placement on /Fri. For HAP: on cefepime. GI: Protonix, pureed thickened feedings. Tolerating well. Renal/: CKD with nephrotic syndrome: Nephrology is following. : On Hydralazine /Lisinopril, now added Lasix and Cardiazem Pt has [place]. Endocrine: DM/ Hypothyroidism: on synthroid. Management as per endocrine. Heme: anemia 2 to CKD, on Procrit . Prophylaxis: DVT: Heparin 5,000U, SC, Q12, GI: Pantoprazole 40 mg IV <Hakan Ellis M - Last Filed: 07/22/17 17:01> CCU Objective - Vital Signs / Intake & Output Vital Signs (Last 4 hours): Vital Signs Temp Pulse Resp BP Pulse Ox 07/22/17 16:00 97.7 F 96 H 17 155/63 H 90 L 07/22/17 14:00 77 15 151/67 H 97 Intake and Output (Last 8hrs): Intake & Output 07/22/17 07/22/17 07/22/17 06:59 14:59 22:59 Intake Total 2 740 50 Output Total 1164 Balance -1162 740 50 Intake: IV 2 Intake, Piggyback 200 Oral 540 50 Output: Chest Tube Drainage 164 Right Anterior Chest 154 Right Posterior Chest 10 Urine 1000 Urethral ([place]) 1000 - Medications Active Medications: Active Medications Generic Name Dose Route Start Last Admin Trade Name Freq PRN Reason Stop Dose Admin Acetylcysteine 2 ml 07/22/17 20:00 Acetylcysteine 20% INH RBID THOMAS Albuterol/Ipratropium 3 ml 07/18/17 14:00 07/22/17 14:57 Duoneb 3 Mg/0.5 Mg (3 Ml) Ud INH 3 ml RQ6 THOMAS Administration Amlodipine Besylate 5 mg 07/20/17 08:45 07/22/17 08:31 Norvasc PO 5 mg Q12H THOMAS Administration Aspirin 81 mg 07/14/17 09:00 07/18/17 09:23 Ecotrin PO Not Given DAILY THOMAS Bacitracin 1 applic 07/11/17 09:00 07/22/17 08:30 Bacitracin Oint TOP 1 applic DAILY THOMAS Administration Calcium Acetate 2,001 mg 07/05/17 08:30 07/14/17 12:26 Phoslo PO 2,001 mg 0830,1200,1830 THOMAS Administration Dextrose 0 ml 06/22/17 22:36 Dextrose 50% Inj IV STAT PRN Hypoglycemia Protocol Protocol Dextrose 0 gm 06/22/17 22:36 Glutose 15 PO ONCE PRN Hypoglycemia Protocol Protocol Dextrose 50 ml 07/14/17 14:52 Dextrose 50% Inj IVP Q1H PRN Hypoglycemia Diltiazem HCl 120 mg 07/22/17 09:00 07/22/17 08:30 Cardizem Cd PO 120 mg DAILY THOMAS Administration Epoetin Roel 14,000 unit 07/07/17 09:00 07/21/17 08:22 Procrit SC 14,000 unit MWF THOMAS Administration Fluconazole 200 mg 07/12/17 09:00 07/22/17 08:30 Diflucan PO 200 mg DAILY THOMAS Administration Protocol Furosemide 40 mg 07/21/17 09:00 07/22/17 08:31 Lasix IVP 40 mg BID THOMAS Administration Glucagon 0 mg 06/22/17 22:36 Glucagen Diagnostic Kit IM STAT PRN Hypoglycemia Protocol Protocol Heparin Sodium (Porcine) 5,000 units 07/17/17 21:00 07/22/17 08:30 Heparin SC 5,000 units Q12 THOMAS Administration Protocol Hydralazine HCl 50 mg 07/19/17 13:24 07/22/17 08:29 Apresoline PO 50 mg Q8 THOMAS Administration Levetiracetam 500 mg/ Sodium 105 mls @ 210 mls/hr 07/04/17 21:00 07/22/17 08: 31 Chloride IVPB 210 mls/hr Q12 THOMAS Administration Cefepime HCl 1 gm/ Sodium 50 mls @ 50 mls/hr 07/13/17 09:00 07/22/17 11:13 Chloride IVPB 50 mls/hr DAILY THOMAS Administration Protocol Insulin Human Lispro 0 units 07/12/17 09:45 07/22/17 11:14 Humalog SC Not Given Q6H THOMAS Protocol Levothyroxine Sodium 50 mcg 07/05/17 06:30 07/22/17 06:56 Synthroid PO 50 mcg DAILY@0630 THOMAS Administration Lisinopril 40 mg 07/19/17 12:45 07/22/17 08:32 Zestril PO 40 mg DAILY THOMAS Administration Oxycodone/Acetaminophen 1 tab 07/22/17 13:00 Percocet 5/325 Mg Tab PO 07/25/17 13:01 Q4 THOMAS Pantoprazole Sodium 40 mg 07/08/17 21:00 07/22/17 08:32 Protonix Inj IVP 40 mg Q12 THOMAS Administration Sodium Bicarbonate 1,300 mg 06/30/17 17:00 07/02/17 16:23 Sodium Bicarbonate Tab PO 1,300 mg Q8 THOMAS Administration Spironolactone 25 mg 07/22/17 09:00 07/22/17 11:14 Aldactone PO 25 mg BID THOMAS Administration Thiamine HCl 100 mg 07/15/17 09:00 07/22/17 08:32 Vitamin B1 Tab PO 100 mg DAILY THOMAS Administration - Patient Studies Lab Studies: Microbiology Studies 06/25/17 16:51 Fungal Culture - Preliminary Pleural Fluid NO FUNGUS GROWTH IN 3 WEEKS. 07/07/17 06:17 Mycobacterial Culture - Preliminary Other: Please Indicate 07/06/17 10:31 Mycobacterial Culture - Preliminary Other: Please Indicate Lab Studies 07/22/17 07/22/17 07/22/17 Range/Units 11:13 05:00 05:00 WBC 6.6 (4.8-10.8) K/uL RBC 3.48 L (4.40-5.90) Mil/uL Hgb 10.2 L (12.0-18.0) g/dL Hct 32.6 L (35.0-51.0) % MCV 93.6 (80.0-94.0) fl MCH 29.3 (27.0-31.0) pg MCHC 31.3 L (33.0-37.0) g/dL RDW 18.7 H (11.5-14.5) % Plt Count 334 (130-400) K/uL MPV 9.4 (7.2-11.7) fl Neut % (Auto) 72.4 (50.0-75.0) % Lymph % (Auto) 13.9 L (20.0-40.0) % Mower % (Auto) 8.3 (0.0-10.0) % Eos % (Auto) 2.6 (0.0-4.0) % Baso % (Auto) 2.8 H (0.0-2.0) % Neut # 4.8 (1.8-7.0) K/uL Lymph # 0.9 L (1.0-4.3) K/uL Mower # 0.5 (0.0-0.8) K/uL Eos # 0.2 (0.0-0.7) K/uL Baso # 0.2 (0.0-0.2) K/uL Sodium 149 H (132-148) mmol/l Potassium 3.9 (3.6-5.0) MMOL/L Chloride 119 H (98-107) mmol/L Carbon Dioxide 22 (22-30) mmol/L Anion Gap 12 (10-20) BUN 27 H (9-20) mg/dl Creatinine 2.1 H (0.8-1.5) mg/dl Est GFR ( Amer) 38 Est GFR (Non-Af Amer) 32 POC Glucose (mg/dL) 126 H (65-110) mg/dL Random Glucose 108 (75-110) mg/dL Calcium 8.0 L (8.4-10.2) mg/dL Total Bilirubin 0.4 (0.2-1.3) mg/dl AST 16 L (17-59) U/L ALT 20 L (21-72) U/L Alkaline Phosphatase 153 H (38-126) U/L Total Protein 5.4 L (6.3-8.2) G/DL Albumin 2.4 L (3.5-5.0) g/dL Globulin 2.9 (2.2-3.9) gm/dL Albumin/Globulin Ratio 0.8 L (1.0-2.1) 07/22/17 07/21/17 Range/Units 04:42 22:04 WBC (4.8-10.8) K/uL RBC (4.40-5.90) Mil/uL Hgb (12.0-18.0) g/dL Hct (35.0-51.0) % MCV (80.0-94.0) fl MCH (27.0-31.0) pg MCHC (33.0-37.0) g/dL RDW (11.5-14.5) % Plt Count (130-400) K/uL MPV (7.2-11.7) fl Neut % (Auto) (50.0-75.0) % Lymph % (Auto) (20.0-40.0) % Mower % (Auto) (0.0-10.0) % Eos % (Auto) (0.0-4.0) % Baso % (Auto) (0.0-2.0) % Neut # (1.8-7.0) K/uL Lymph # (1.0-4.3) K/uL Mower # (0.0-0.8) K/uL Eos # (0.0-0.7) K/uL Baso # (0.0-0.2) K/uL Sodium (132-148) mmol/l Potassium (3.6-5.0) MMOL/L Chloride (98-107) mmol/L Carbon Dioxide (22-30) mmol/L Anion Gap (10-20) BUN (9-20) mg/dl Creatinine (0.8-1.5) mg/dl Est GFR ( Amer) Est GFR (Non-Af Amer) POC Glucose (mg/dL) 108 147 H (65-110) mg/dL Random Glucose (75-110) mg/dL Calcium (8.4-10.2) mg/dL Total Bilirubin (0.2-1.3) mg/dl AST (17-59) U/L ALT (21-72) U/L Alkaline Phosphatase (38-126) U/L Total Protein (6.3-8.2) G/DL Albumin (3.5-5.0) g/dL Globulin (2.2-3.9) gm/dL Albumin/Globulin Ratio (1.0-2.1) Laboratory Results - last 24 hr 07/21/17 07/22/17 07/22/17 22:04 04:42 05:00 WBC 6.6 RBC 3.48 L Hgb 10.2 L Hct 32.6 L MCV 93.6 MCH 29.3 MCHC 31.3 L RDW 18.7 H Plt Count 334 MPV 9.4 Neut % (Auto) 72.4 Lymph % (Auto) 13.9 L Mower % (Auto) 8.3 Eos % (Auto) 2.6 Baso % (Auto) 2.8 H Neut # 4.8 Lymph # 0.9 L Mower # 0.5 Eos # 0.2 Baso # 0.2 Sodium Potassium Chloride Carbon Dioxide Anion Gap BUN Creatinine Est GFR ( Amer) Est GFR (Non-Af Amer) POC Glucose (mg/dL) 147 H 108 Random Glucose Calcium Total Bilirubin AST ALT Alkaline Phosphatase Total Protein Albumin Globulin Albumin/Globulin Ratio 07/22/17 07/22/17 05:00 11:13 WBC RBC Hgb Hct MCV MCH MCHC RDW Plt Count MPV Neut % (Auto) Lymph % (Auto) Mower % (Auto) Eos % (Auto) Baso % (Auto) Neut # Lymph # Mower # Eos # Baso # Sodium 149 H Potassium 3.9 Chloride 119 H Carbon Dioxide 22 Anion Gap 12 BUN 27 H Creatinine 2.1 H Est GFR ( Amer) 38 Est GFR (Non-Af Amer) 32 POC Glucose (mg/dL) 126 H Random Glucose 108 Calcium 8.0 L Total Bilirubin 0.4 AST 16 L ALT 20 L Alkaline Phosphatase 153 H Total Protein 5.4 L Albumin 2.4 L Globulin 2.9 Albumin/Globulin Ratio 0.8 L Critical Care Progress Note - Nutrition Nutrition: Nutrition Category Date Time Status Dysphagia/Modified Consistency Diet [DIET] Diets 07/18/17 Dinner Active Attending/Attestation - Attestation I have personally seen and examined this patient.: Yes I have fully participated in the care of the patient.: Yes I have reviewed all pertinent clinical information: Yes Notes (Text): 07/22/17 17:01 Today: Friday, July 21, 2017 The patient was Seen/interviewed and examined by me at the bedside during ICU round, Medical records reviewed and Management issues were discussed and formulated with the house staff. Events reviewed I have reviewed all the relevant clinical, laboratory, hemodynamic, radiographic data and medications Pain issues, skin care, head of the bed elevation, glycemic control were addressed. I concur with resident's assessment and plan of care as transcribed in Dr. Magana note.
[2017-07-22 18:19] LABS: % CD4 (T HELPER CELL) 50 Percent (30-61); % CD8 (SUPPRESSOR T CELL) 39 Percent (12-42); ABSOLUTE CD4 CELLS 390 Cells/mcL (490-1740); ABSOLUTE CD8 CELLS 308 Cells/mcL (180-1170); ABSOLUTE LYMPHOCYTES 784 Cells/mcL (850-3900); HELPER/SUPPRESSOR RATIO 1.27 Ratio (0.86-5.00)
--- NOTE | 2017-07-22 19:08 | CP.PCM.PN ---
Subjective - Date & Time of Evaluation Date of Evaluation: 07/22/17 Time of Evaluation: 18:30 - Subjective Subjective: Patient tolerating diet well; still with pain at site of R chest tube; off high flow O2 since this morning; Objective - Vital Signs/Intake and Output Vital Signs (last 24 hours): Temp Pulse Resp BP Pulse Ox 97.7 F 93 H 22 165/68 H 93 L 07/22/17 16:00 07/22/17 18:00 07/22/17 18:00 07/22/17 18:00 07/22/17 18:00 Intake and Output: 07/22/17 07/23/17 18:59 06:59 Intake Total 990 Output Total 1989 Balance -1000 - Medications Medications: Current Medications Acetylcysteine (Acetylcysteine 20%) 2 ml INH RBID [facility] Albuterol/Ipratropium (Duoneb 3 Mg/0.5 Mg (3 Ml) Ud) 3 ml INH RQ6 [facility] Last Admin: 07/22/17 14:57 Dose: 3 ml Amlodipine Besylate (Norvasc) 5 mg PO Q12H [facility] Last Admin: 07/22/17 08:31 Dose: 5 mg Aspirin (Ecotrin) 81 mg PO DAILY [facility] Last Admin: 07/18/17 09:23 Dose: Not Given Bacitracin (Bacitracin Oint) 1 applic TOP DAILY [facility] Last Admin: 07/22/17 08:30 Dose: 1 applic Calcium Acetate (Phoslo) 2,001 mg PO 0830,1200,1830 [facility] Last Admin: 07/14/17 12:26 Dose: 2,001 mg Dextrose (Dextrose 50% Inj) 0 ml IV STAT PRN; Protocol PRN Reason: Hypoglycemia Protocol Dextrose (Glutose 15) 0 gm PO ONCE PRN; Protocol PRN Reason: Hypoglycemia Protocol Dextrose (Dextrose 50% Inj) 50 ml IVP Q1H PRN PRN Reason: Hypoglycemia Diltiazem HCl (Cardizem Cd) 120 mg PO DAILY [facility] Last Admin: 07/22/17 08:30 Dose: 120 mg Epoetin Roel (Procrit) 14,000 unit SC MWF [facility] Last Admin: 07/21/17 08:22 Dose: 14,000 unit Fluconazole (Diflucan) 200 mg PO DAILY [facility] PRN Reason: Protocol Last Admin: 07/22/17 08:30 Dose: 200 mg Furosemide (Lasix) 40 mg IVP BID [facility] Last Admin: 07/22/17 17:22 Dose: 40 mg Glucagon (Glucagen Diagnostic Kit) 0 mg IM STAT PRN; Protocol PRN Reason: Hypoglycemia Protocol Heparin Sodium (Porcine) (Heparin) 5,000 units SC Q12 [facility] PRN Reason: Protocol Last Admin: 07/22/17 08:30 Dose: 5,000 units Hydralazine HCl (Apresoline) 50 mg PO Q8 [facility] Last Admin: 07/22/17 17:22 Dose: 50 mg Levetiracetam 500 mg/ Sodium (Chloride) 105 mls @ 210 mls/hr IVPB Q12 [facility] Last Admin: 07/22/17 08:31 Dose: 210 mls/hr Cefepime HCl 1 gm/ Sodium (Chloride) 50 mls @ 50 mls/hr IVPB DAILY [facility] PRN Reason: Protocol Last Admin: 07/22/17 11:13 Dose: 50 mls/hr Insulin Human Lispro (Humalog) 0 units SC Q6H [facility] PRN Reason: Protocol Last Admin: 07/22/17 16:30 Dose: Not Given Levothyroxine Sodium (Synthroid) 50 mcg PO DAILY@0630 [facility] Last Admin: 07/22/17 06:56 Dose: 50 mcg Lisinopril (Zestril) 40 mg PO DAILY [facility] Last Admin: 07/22/17 08:32 Dose: 40 mg Oxycodone/Acetaminophen (Percocet 5/325 Mg Tab) 1 tab PO Q4 [facility] Stop: 07/25/17 13:01 Last Admin: 07/22/17 17:24 Dose: 1 tab Pantoprazole Sodium (Protonix Inj) 40 mg IVP Q12 [facility] Last Admin: 07/22/17 08:32 Dose: 40 mg Sodium Bicarbonate (Sodium Bicarbonate Tab) 1,300 mg PO Q8 [facility] Last Admin: 07/02/17 16:23 Dose: 1,300 mg Spironolactone (Aldactone) 25 mg PO BID [facility] Last Admin: 07/22/17 17:22 Dose: 25 mg Thiamine HCl (Vitamin B1 Tab) 100 mg PO DAILY [facility] Last Admin: 07/22/17 08:32 Dose: 100 mg - Labs Labs: 07/22/17 05:00 07/22/17 05:00 PT 15.3 Seconds (9.8-13.1) H 07/18/17 05:30 INR 1.4 (0.9-1.2) H 07/18/17 05:30 APTT 34.2 Seconds (25.6-37.1) 07/18/17 05:30 - Constitutional Appears: Non-toxic, No Acute Distress - Eye Exam Eye Exam: absent: Scleral icterus - ENT Exam ENT Exam: Mucous Membranes Moist - Respiratory Exam Respiratory Exam: absent: Respiratory Distress Additional comments: markedly decreased breath sounds on L; - Cardiovascular Exam Cardiovascular Exam: REGULAR RHYTHM, +S1, +S2 - GI/Abdominal Exam GI & Abdominal Exam: Soft. absent: Distended, Tenderness - Exam Exam: Scrotal Swelling - Extremities Exam Additional comments: markedly edematous dependent areas and arms; - Psychiatric Exam Psychiatric exam: Normal Affect, Normal Mood. absent: Agitated - Skin Skin Exam: Warm. absent: Cyanosis Assessment and Plan (1) Acute renal failure Assessment & Plan: ATN resolved; trying to bring down BP slowly, avoid abrupt decreases; Status: Acute (2) Nephrotic syndrome Assessment & Plan: Started on aldactone today for added anti-proteinuric effect in addition to lisinopril and cardizem; monitor for hyperkalemai; Status: Chronic (3) Pleural effusion Assessment & Plan: Continue diuretics with lasix 40 mg IV bid and aldactone; achieving neg fluid balance; Status: Chronic (4) Hypertensive CKD (chronic kidney disease) Assessment & Plan: BP slighlty better controlled; will seek to increase cardizem and aldactone dose slowly; Status: Acute (5) Chronic kidney disease, stage 3 (moderate) Status: Chronic (6) Hypothermia Status: Acute (7) Altered mental status Status: Acute (8) SIRS (systemic inflammatory response syndrome) Status: Acute (9) Anemia Assessment & Plan: hgb stable, continue EPO Status: Chronic (10) Monoclonal gammopathy Status: Chronic
--- NOTE | 2017-07-22 19:33 | PN ---
DATE: ENDOCRINOLOGY FOLLOWUP NOTE LOCATION: Room 433. SUBJECTIVE: This is a 66-year-old male with recent acute respiratory failure with underlying pleural effusion and is now being followed closely for metabolic management. His glycemic levels are fluctuating, but improved and the latest glucose levels have ranged from 108 to 126 and 147 mg/dL. His latest chemistry showed a BUN of 27, sodium 149, potassium 3.9, chloride 119, CO2 of 27, glucose is 108, and creatinine is 2.1. His latest thyroid study are pending as ordered today and the last one done a week ago showed a T4 of 7.96 with a TSH of 2.62. So at this time, we will continue the low-dose levothyroxine given as 50 mcg once daily as ordered. We will continue also the low dose algorithm with Humalog insulin given every 6 hours as ordered. We will titrate incrementally as indicated to optimize metabolic control. We will follow. Bettina Mann MD
--- NOTE | 2017-07-22 20:35 | OP ---
PROCEDURE DATE: 07/15/2017 PREOPERATIVE DIAGNOSES: 1. Persistent right pleural effusion. 2. Respiratory failure. POSTOPERATIVE DIAGNOSES: 1. Persistent right pleural effusion. 2. Consolidation, right lower lobe. 3. Respiratory failure. 4. Nephrotic syndrome. OPERATIVE PROCEDURES: 1. Right mini thoracotomy and pneumolysis. 2. Fluoroscopic-guided tube thoracostomy x2. 3. Pleural biopsy. SURGEON: Sarabjit Gannon MD. BUSINESS SUPPORT MANAGER: Jocelyn Coulter DO DESCRIPTION OF PROCEDURE: The patient was taken to the operating room after transfusing him with 2 units of fresh platelets and an operative field was prepared and draped in a sterile fashion under satisfactory endotracheal general anesthesia. Surgery was initially started out with an incision in the mid axillary line in eighth intercostal space and carefully, the pleural cavity was entered using blunt dissection. Under fluoroscopic guidance as well as manual guidance, the chest tube was directed posteriorly to the apex. Next, a second 28-Pashto chest tube was inserted through an incision in the seventh intercostal space in midclavicular line and attempt was made to advance to the apex anteriorly. It was determined that a previously placed chest tube as well as adhesions were blocking the advancement of the chest tube, therefore, the previously placed chest tube was removed. Again, difficulty was encountered. Therefore, mini thoracotomy was made centered in the midclavicular line and after performing the pneumolysis, under direct fluoroscopic guidance, the chest tube was advanced and guided to the apex with index finger. At this time, exploration was made to evaluate the radiographic density in the right lower lobe, which was found to be consolidated lung. Lung was firm and purplish, light color which was not readily compressible. Pleura was at this time dissected off the chest wall and biopsy was carried out in the usual manner. Bleeding points were electrocauterized. After satisfactory hemostasis, thoracotomy was closed with continuous 0 Vicryl, subcutaneous tissue with continuous 3-0 Vicryl and skin with continuous 3-0 Prolene suture. After confirming the position of the chest tube with fluoro, chest tubes were secured at the skin edge with 0 silk sutures in the usual manner. Chest tubes were reconnected individually to the [place] pleural suction system. Thoracotomy wound was further reinforced with Dermabond and then rest of the wounds were covered with 4x4s and kept in the usual manner. The patient tolerated the procedure very well and was transferred to the recovery room, intubated with good vital signs. Estimated blood loss was minimum and sponge, needle, and instrument counts were correct. Sarabjit Gannon MD [facility]ARD[facility]
[2017-07-23] MEDS: Albuterol-Ipratrop 3 mg / 0.5 (3 ml) UD INH SCH ×4 (01:03→19:27)
[2017-07-23] MEDS: Oxycodone/Acetaminophen 5/325 mg Tab PO SCH ×5 (02:26→20:25)
[2017-07-23] MEDS: Insulin Lispro (humaLOG) 100 Units/ml Inj SC SCH ×4 (04:30→21:45)
[2017-07-23] MEDS: Levothyroxine 50 MCG TAB PO SCH (05:29)
[2017-07-23 05:40] LABS: HEMOGLOBIN 9.8 g/dL (12.0-18.0); MEAN CELL VOLUME 94.4 fl (80.0-94.0); MEAN CORPUSCULAR HEMOGLOBIN 29.1 pg (27.0-31.0); MEAN CORPUSCULAR HGB CONC 30.9 g/dL (33.0-37.0); RBC 3.38 Mil/uL (4.40-5.90); RED CELL DISTRIBUTION WIDTH 19.5 % (11.5-14.5); WHITE BLOOD COUNT 7.9 K/uL (4.8-10.8)
[2017-07-23 05:57] LABS: CALCIUM 8.3 mg/dL (8.4-10.2)
[2017-07-23] MEDS: Acetylcysteine 20% Inhal Soln (4ml) INH SCH ×2 (07:39→19:28)
[2017-07-23] MEDS: Sodium Chloride 3% for Inhalation 4 ML VIAL.NEB IH SCH ×4 (07:39→19:28)
--- NOTE | 2017-07-23 08:10 | CP.PCM.PN ---
Subjective - Date & Time of Evaluation Date of Evaluation: 07/23/17 Time of Evaluation: 07:15 - Subjective Subjective: Vital Signs: 36.6- 79- 148/68- 14- 95% (4LNC) Chest Tube Rt Post: 1385ml/+335ml total/24hr Chest Tube Rt Ant: ---ml/--ml total/24hr LEFT subclavian: patent, non-erythematous Salazar Catheter: Improved, yellow urine 66M resting and easily awakened on entering room. Patient answering all questions and following commands. Reporting marti pain at RIGHT chest wall. He says he is hungry and wants more food. Otherwise, denies SOB, N/V, or having BMs. Objective - Vital Signs/Intake and Output Vital Signs (last 24 hours): Temp Pulse Resp BP Pulse Ox 36.7 C 80 14 153/63 H 96 07/23/17 04:00 07/23/17 06:00 07/23/17 06:00 07/23/17 06:00 07/23/17 06:00 Intake and Output: 07/23/17 07/23/17 06:59 18:59 Intake Total 465 Output Total 1370 Balance -905 - Medications Medications: Current Medications Acetylcysteine (Acetylcysteine 20%) 2 ml INH RBID [facility] Last Admin: 07/23/17 07:39 Dose: 2 ml Albuterol/Ipratropium (Duoneb 3 Mg/0.5 Mg (3 Ml) Ud) 3 ml INH RQ6 [facility] Last Admin: 07/23/17 07:39 Dose: 3 ml Amlodipine Besylate (Norvasc) 5 mg PO Q12H [facility] Last Admin: 07/22/17 20:06 Dose: 5 mg Aspirin (Ecotrin) 81 mg PO DAILY [facility] Last Admin: 07/18/17 09:23 Dose: Not Given Bacitracin (Bacitracin Oint) 1 applic TOP DAILY [facility] Last Admin: 07/22/17 08:30 Dose: 1 applic Calcium Acetate (Phoslo) 2,001 mg PO 0830,1200,1830 [facility] Last Admin: 07/14/17 12:26 Dose: 2,001 mg Dextrose (Dextrose 50% Inj) 0 ml IV STAT PRN; Protocol PRN Reason: Hypoglycemia Protocol Dextrose (Glutose 15) 0 gm PO ONCE PRN; Protocol PRN Reason: Hypoglycemia Protocol Dextrose (Dextrose 50% Inj) 50 ml IVP Q1H PRN PRN Reason: Hypoglycemia Diltiazem HCl (Cardizem Cd) 120 mg PO DAILY [facility] Last Admin: 07/22/17 08:30 Dose: 120 mg Epoetin Roel (Procrit) 14,000 unit SC MWF [facility] Last Admin: 07/21/17 08:22 Dose: 14,000 unit Fluconazole (Diflucan) 200 mg PO DAILY [facility] PRN Reason: Protocol Last Admin: 07/22/17 08:30 Dose: 200 mg Furosemide (Lasix) 40 mg IVP BID [facility] Last Admin: 07/22/17 17:22 Dose: 40 mg Glucagon (Glucagen Diagnostic Kit) 0 mg IM STAT PRN; Protocol PRN Reason: Hypoglycemia Protocol Heparin Sodium (Porcine) (Heparin) 5,000 units SC Q12 [facility] PRN Reason: Protocol Last Admin: 07/22/17 20:06 Dose: 5,000 units Hydralazine HCl (Apresoline) 50 mg PO Q8 [facility] Last Admin: 07/23/17 00:50 Dose: 50 mg Levetiracetam 500 mg/ Sodium (Chloride) 105 mls @ 210 mls/hr IVPB Q12 [facility] Last Admin: 07/22/17 20:08 Dose: 210 mls/hr Cefepime HCl 1 gm/ Sodium (Chloride) 50 mls @ 50 mls/hr IVPB DAILY [facility] PRN Reason: Protocol Last Admin: 07/22/17 11:13 Dose: 50 mls/hr Insulin Human Lispro (Humalog) 0 units SC Q6H [facility] PRN Reason: Protocol Last Admin: 07/23/17 04:30 Dose: Not Given Levothyroxine Sodium (Synthroid) 50 mcg PO DAILY@0630 [facility] Last Admin: 07/23/17 05:29 Dose: 50 mcg Lisinopril (Zestril) 40 mg PO DAILY [facility] Last Admin: 07/22/17 08:32 Dose: 40 mg Oxycodone/Acetaminophen (Percocet 5/325 Mg Tab) 1 tab PO Q4 [facility] Stop: 07/25/17 13:01 Last Admin: 07/23/17 05:28 Dose: 1 tab Pantoprazole Sodium (Protonix Inj) 40 mg IVP Q12 [facility] Last Admin: 07/22/17 20:07 Dose: 40 mg Sodium Bicarbonate (Sodium Bicarbonate Tab) 1,300 mg PO Q8 [facility] Last Admin: 07/02/17 16:23 Dose: 1,300 mg Spironolactone (Aldactone) 25 mg PO BID [facility] Last Admin: 07/22/17 17:22 Dose: 25 mg Thiamine HCl (Vitamin B1 Tab) 100 mg PO DAILY [facility] Last Admin: 07/22/17 08:32 Dose: 100 mg - Labs Labs: 07/23/17 04:30 07/23/17 04:30 PT 15.3 Seconds (9.8-13.1) H 07/18/17 05:30 INR 1.4 (0.9-1.2) H 07/18/17 05:30 APTT 34.2 Seconds (25.6-37.1) 07/18/17 05:30 - Constitutional Appears: Non-toxic, No Acute Distress, Older Than Stated Age, Chronically Ill - Head Exam Head Exam: ATRAUMATIC, NORMAL INSPECTION - Eye Exam Eye Exam: EOMI, Normal appearance - ENT Exam ENT Exam: Mucous Membranes Moist, Normal Exam - Respiratory Exam Respiratory Exam: Decreased Breath Sounds (LLL, improved breath sounds in JUNE), NORMAL BREATHING PATTERN. absent: Wheezes - Cardiovascular Exam Cardiovascular Exam: REGULAR RHYTHM, +S1, +S2 - GI/Abdominal Exam GI & Abdominal Exam: Soft, Normal Bowel Sounds. absent: Tenderness - Extremities Exam Extremities Exam: Normal Capillary Refill. absent: Pedal Edema, Tenderness - Neurological Exam Neurological Exam: Alert, Awake - Psychiatric Exam Psychiatric exam: Normal Affect - Skin Skin Exam: Dry, Warm Assessment and Plan - Assessment and Plan (Free Text) Assessment: 66M currently critical but stable. Goals are strengthening, nutrition, and pleural effusion control. Plan: 1) Acute Respiratory Failure secondary to recurrent pleural effusions thought to be secondary to nephrotic syndrome after competing etiologies investigated. Pt is now extubated and continues on 4LNC, still requiring right - sided chest tubes (Post/Ant) with the posterior draining ~300cc/daily. The left lung continues with mod-large loculated effusion and greatly improved post- obstructive atelectasis picture. - c/w nasal cannula, will have some oxygen requirement due to pulmonary condition - Bed program for Chest PT Q4H, c/w suctioning when possible and medication as recommended by Pulmonary. - c/w aggressive PT (Pt was up in chair today) - Transfer to Telemetry 07/24 if clinically indicated, although no "Pulmonary/ Respiratory function bed" which at this time is likely helping with pulmonary toilet. - CT Surgery Consult (Dr Gannon) appreciated: Chest tubes to water seal, Pleurex catheter planned for Fri (of note it is unclear how patient will be able to care for and manage this pleurex catheter should he be discharged). Pt not a good candidate for aggressive intervention on LEFT loculated effusion. - Pulmonary Consult (Dr Raymond)appreciated: Chest PT, bronchodilators, mucomyst , c/w current management - ID Consult (Dr Dolan) appreciated: Okay to d/c Cefepime, culture if febrile - Nephrology Consult (Dr Luz) appreciated: c/w medically controlling nephrotic syndrome with ACEI/CCB, Aldactone and Lasix started (monitor for hyperkalemia), Anemia: EPO MWF. HTN 2/2 CKD: Lasix 40mg, BID 3) Hypernatremia- Stable at 149 - monitor with BMP - Will f/u Nephrology recommendations - Encourage PO hydration 4) HAP- PCT: 0.21, as per Dr Kelsi daniels to d/c Cefepime and culture if febrile - ID consultation (Dr Dolan) appreciated 5) DM nephropathy - Kidney biopsy 06/05/17: Diabetic nephropathy, nodular glomerulosclerosis, associated with aprox 40 % globally sclerosed glomeruli( calss III), 10-15 % segmentally sclerosed glomeruli, docal moderate interstitial fibrosis and mod vascular sclerosis, including marked hyaline arteriolosclerosis.NO EVIDENCE OF MONOCLONAL LIGHT OR HEAVY CHAIN-RELATED RENAL DISEASE. Renal duplex: no renal vein thrombosis - Renal duplex: no renal vein thrombosis 6) CKD stage 4- BUN/Cr stable today - Monitor BUN/Cr 7) Hypothyroidism, subclinical: TSH- 3.31 - Econdrinologist consult (Dr Mann) appreciated - c/w levothryroxin 50 mcg daily 8) Hyperprolactinemia- improving -Prolactin trending down last .1 -MRI brain:no intra-cranial hemorrhage, chronic lacunar infarct b/l cerebral, changes in dali may represent chronic ischemia or sequela of osmotic myelonilolysis not excluded.chronic b/l basal nuclei lacunar infarcts, mastoid opacification secondary to intubation 9) Pressure Ulcer and TDI -improving 10) pEF CHF - Echo 12/2/17 normal EF 60-65% - Pt on ACEI 11) DM 2: stable - Lispro, SSI, Low dose - Accu-checks 12) HTN - Hydralazine 50 Q8 - Lisinopril 40mg, Daily - 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
[2017-07-23] MEDS: diltiaZEM 120 mg/24 Hours CD Cap PO SCH (08:18)
[2017-07-23] MEDS: Cefepime 1 GM in Sodium Chloride 0.9% 50 ML IVPB SCH (08:20)
[2017-07-23] MEDS: Bacitracin OINT 15GM TOP SCH (08:59)
--- NOTE | 2017-07-23 09:49 | CP.PCM.PN ---
Subjective - Date & Time of Evaluation Date of Evaluation: 07/23/17 Time of Evaluation: 09:49 - Subjective Subjective: MORE AWAKE AND ALERT NO SOB/CHEST PAINS Objective - Vital Signs/Intake and Output Vital Signs (last 24 hours): Temp Pulse Resp BP Pulse Ox 97.8 F 95 H 25 H 156/68 H 89 L 07/23/17 08:00 07/23/17 08:57 07/23/17 08:00 07/23/17 08:57 07/23/17 08:00 Intake and Output: 07/23/17 07/23/17 06:59 18:59 Intake Total 465 240 Output Total 1370 Balance -905 240 - Medications Medications: Current Medications Acetylcysteine (Acetylcysteine 20%) 2 ml INH RBID [facility] Last Admin: 07/23/17 07:39 Dose: 2 ml Albuterol/Ipratropium (Duoneb 3 Mg/0.5 Mg (3 Ml) Ud) 3 ml INH RQ6 [facility] Last Admin: 07/23/17 07:39 Dose: 3 ml Amlodipine Besylate (Norvasc) 5 mg PO Q12H [facility] Last Admin: 07/23/17 08:18 Dose: 5 mg Aspirin (Ecotrin) 81 mg PO DAILY [facility] Last Admin: 07/18/17 09:23 Dose: Not Given Bacitracin (Bacitracin Oint) 1 applic TOP DAILY [facility] Last Admin: 07/23/17 08:59 Dose: 1 applic Calcium Acetate (Phoslo) 2,001 mg PO 0830,1200,1830 [facility] Last Admin: 07/14/17 12:26 Dose: 2,001 mg Dextrose (Dextrose 50% Inj) 0 ml IV STAT PRN; Protocol PRN Reason: Hypoglycemia Protocol Dextrose (Glutose 15) 0 gm PO ONCE PRN; Protocol PRN Reason: Hypoglycemia Protocol Dextrose (Dextrose 50% Inj) 50 ml IVP Q1H PRN PRN Reason: Hypoglycemia Diltiazem HCl (Cardizem Cd) 120 mg PO DAILY [facility] Last Admin: 07/23/17 08:18 Dose: 120 mg Epoetin Roel (Procrit) 14,000 unit SC MWF [facility] Last Admin: 07/21/17 08:22 Dose: 14,000 unit Fluconazole (Diflucan) 200 mg PO DAILY [facility] PRN Reason: Protocol Last Admin: 07/23/17 08:17 Dose: 200 mg Furosemide (Lasix) 40 mg IVP BID [facility] Last Admin: 07/23/17 08:19 Dose: 40 mg Glucagon (Glucagen Diagnostic Kit) 0 mg IM STAT PRN; Protocol PRN Reason: Hypoglycemia Protocol Heparin Sodium (Porcine) (Heparin) 5,000 units SC Q12 [facility] PRN Reason: Protocol Last Admin: 07/23/17 08:15 Dose: 5,000 units Hydralazine HCl (Apresoline) 50 mg PO Q8 [facility] Last Admin: 07/23/17 08:16 Dose: 50 mg Levetiracetam 500 mg/ Sodium (Chloride) 105 mls @ 210 mls/hr IVPB Q12 [facility] Last Admin: 07/22/17 20:08 Dose: 210 mls/hr Cefepime HCl 1 gm/ Sodium (Chloride) 50 mls @ 50 mls/hr IVPB DAILY [facility] PRN Reason: Protocol Last Admin: 07/23/17 08:20 Dose: 50 mls/hr Insulin Human Lispro (Humalog) 0 units SC Q6H [facility] PRN Reason: Protocol Last Admin: 07/23/17 04:30 Dose: Not Given Levothyroxine Sodium (Synthroid) 50 mcg PO DAILY@0630 [facility] Last Admin: 07/23/17 05:29 Dose: 50 mcg Lisinopril (Zestril) 40 mg PO DAILY [facility] Last Admin: 07/23/17 08:57 Dose: 40 mg Oxycodone/Acetaminophen (Percocet 5/325 Mg Tab) 1 tab PO Q4 [facility] Stop: 07/25/17 13:01 Last Admin: 07/23/17 09:34 Dose: 1 tab Pantoprazole Sodium (Protonix Inj) 40 mg IVP Q12 [facility] Last Admin: 07/23/17 09:28 Dose: 40 mg Sodium Bicarbonate (Sodium Bicarbonate Tab) 1,300 mg PO Q8 [facility] Last Admin: 07/02/17 16:23 Dose: 1,300 mg Spironolactone (Aldactone) 25 mg PO BID [facility] Last Admin: 07/23/17 08:18 Dose: 25 mg Thiamine HCl (Vitamin B1 Tab) 100 mg PO DAILY [facility] Last Admin: 07/23/17 08:17 Dose: 100 mg - Labs Labs: 07/23/17 04:30 07/23/17 04:30 PT 15.3 Seconds (9.8-13.1) H 07/18/17 05:30 INR 1.4 (0.9-1.2) H 07/18/17 05:30 APTT 34.2 Seconds (25.6-37.1) 07/18/17 05:30 - Constitutional Appears: No Acute Distress - Head Exam Head Exam: ATRAUMATIC, NORMAL INSPECTION, NORMOCEPHALIC - Eye Exam Eye Exam: EOMI, Normal appearance, PERRL Pupil Exam: NORMAL ACCOMODATION, PERRL - ENT Exam ENT Exam: Mucous Membranes Moist, Normal Exam - Neck Exam Neck Exam: Full ROM, Normal Inspection. absent: Lymphadenopathy - Respiratory Exam Respiratory Exam: Decreased Breath Sounds, Rales, NORMAL BREATHING PATTERN - Cardiovascular Exam Cardiovascular Exam: REGULAR RHYTHM, +S1, +S2. absent: Murmur - GI/Abdominal Exam GI & Abdominal Exam: Soft, Normal Bowel Sounds. absent: Tenderness - Rectal Exam Rectal Exam: NORMAL INSPECTION - Exam Speculum exam: NORMAL SPECULUM EXAM - Extremities Exam Extremities Exam: Full ROM, Normal Capillary Refill, Normal Inspection. absent : Joint Swelling, Pedal Edema - Back Exam Back Exam: NORMAL INSPECTION - Neurological Exam Neurological Exam: Alert, Awake, CN II-XII Intact, Normal Gait, Oriented x3 - Psychiatric Exam Psychiatric exam: Normal Affect, Normal Mood - Skin Skin Exam: Dry, Intact, Normal Color, Warm Assessment and Plan - Assessment and Plan (Free Text) Assessment: PLEURAL EFFUSIONS[CXR --BETTER AERATION OF LUNGS WITH BIBASILAR EFFUSIONS] Plan: CONTINUE PRESENT RX
[2017-07-23] MEDS: levETIRAcetam 500 MG in Sodium Chloride 0.9% 100 ML IVPB SCH ×2 (10:13→20:23)
--- NOTE | 2017-07-23 11:17 | RAD ---
HISTORY: reevaluate COMPARISON: 07/22/2017 FINDINGS: LUNGS: Opacity at right lung base. Nonspecific. PLEURA: Two right apical chest tubes, unchanged. No pneumothorax. CARDIOVASCULAR: Small to moderate left pleural effusion and small right pleural effusion. No pneumothorax. OSSEOUS STRUCTURES: Left subclavian central venous catheter, unchanged. VISUALIZED UPPER ABDOMEN: Normal. OTHER FINDINGS: None. IMPRESSION: Small right pleural effusion and small to moderate left pleural effusion. Two right apical chest tubes, unchanged. No pneumothorax.
[2017-07-23] MEDS: Epoetin Alfa 20000 UNIT/ML Inj SC SCH (11:18)
--- NOTE | 2017-07-23 12:06 | CP.CCUPN ---
<MaganaBeckbarrie - Last Filed: 07/23/17 14:17> CCU Subjective - Physician Review Subjective (Free Text): Patient awake and alert, breathing comfortably on NC. Requesting pancakes and scrambled eggs for breakfast. PT able to help patient to chair. Patient for possible pleurex catheter on Th/Fri this week. Will discuss with surgical team. Vital signs reviewed. Labs, imaging and I/Os reviewed. Right Posterior CT: 330cc Right anterior CT: 230cc CCU Objective - Vital Signs / Intake & Output Vital Signs (Last 4 hours): Vital Signs Pulse Resp BP Pulse Ox 07/23/17 10:00 76 17 141/80 93 L 07/23/17 09:00 88 24 157/68 H 97 07/23/17 08:57 95 H 156/68 H 07/23/17 08:19 153/66 H 07/23/17 08:18 83 153/66 H 07/23/17 08:16 83 153/66 H Intake and Output (Last 8hrs): Intake & Output 07/22/17 07/23/17 07/23/17 22:59 06:59 14:59 Intake Total 560 155 240 Output Total 2390 970 Balance -1830 -815 240 Weight 68.039 kg Intake: IV 140 35 Oral 420 120 240 Output: Chest Tube Drainage 390 170 Right Anterior Chest 140 90 Right Posterior Chest 250 80 Urine 2000 800 Urethral (Salazar) 2000 800 - Physical Exam Head: Positive for: Atraumatic, Normocephalic Pupils: Positive for: PERRL Conjunctiva: Negative for: Icteric Mouth: Positive for: Moist Mucous Membranes Nose (External): Negative for: Lesions Neck: Positive for: Normal Range of Motion (Supple ), Other (central line: left neck in place with dressing, clean and dry.) Respiratory/Chest: Positive for: Decreased Breath Sounds (L), Rhonchi (right chest, left chest decreased breath sounds), Other (on NC). Negative for: Respiratory Distress, Accessory Muscle Use, Wheezes, Tachypneic Cardiovascular: Positive for: Regular Rate and Rhythm, Normal S1, S2 Abdomen: Positive for: Tenderness, Other (soft). Negative for: Distention Upper Extremity: Positive for: Edema (bilateral 2+ pitting edema; right > left. improving) Lower Extremity: Negative for: Edema, CALF TENDERNESS Neurological: Positive for: Other (speech improving, not at baseline) Skin: Positive for: Warm, Dry, Other (multiple blisters around tape on right chest) Psychiatric: Positive for: Alert, Oriented x 3 (speech is more clear today), Depressed Mood - Medications Active Medications: Active Medications Generic Name Dose Route Start Last Admin Trade Name Freq PRN Reason Stop Dose Admin Acetylcysteine 2 ml 07/22/17 20:00 07/23/17 07:39 Acetylcysteine 20% INH 2 ml RBID [facility] Administration Albuterol/Ipratropium 3 ml 07/18/17 14:00 07/23/17 07:39 Duoneb 3 Mg/0.5 Mg (3 Ml) Ud INH 3 ml RQ6 [facility] Administration Amlodipine Besylate 5 mg 07/20/17 08:45 07/23/17 08:18 Norvasc PO 5 mg Q12H [facility] Administration Aspirin 81 mg 07/14/17 09:00 07/18/17 09:23 Ecotrin PO Not Given DAILY [facility] Bacitracin 1 applic 07/11/17 09:00 07/23/17 08:59 Bacitracin Oint TOP 1 applic DAILY [facility] Administration Calcium Acetate 2,001 mg 07/05/17 08:30 07/14/17 12:26 Phoslo PO 2,001 mg 0830,1200,1830 [facility] Administration Dextrose 0 ml 06/22/17 22:36 Dextrose 50% Inj IV STAT PRN Hypoglycemia Protocol Protocol Dextrose 0 gm 06/22/17 22:36 Glutose 15 PO ONCE PRN Hypoglycemia Protocol Protocol Dextrose 50 ml 07/14/17 14:52 Dextrose 50% Inj IVP Q1H PRN Hypoglycemia Diltiazem HCl 120 mg 07/22/17 09:00 07/23/17 08:18 Cardizem Cd PO 120 mg DAILY [facility] Administration Epoetin Roel 14,000 unit 07/07/17 09:00 07/23/17 11:18 Procrit SC 14,000 unit MWF [facility] Administration Fluconazole 200 mg 07/12/17 09:00 07/23/17 08:17 Diflucan PO 200 mg DAILY [facility] Administration Protocol Furosemide 40 mg 07/21/17 09:00 07/23/17 08:19 Lasix IVP 40 mg BID [facility] Administration Glucagon 0 mg 06/22/17 22:36 Glucagen Diagnostic Kit IM STAT PRN Hypoglycemia Protocol Protocol Heparin Sodium (Porcine) 5,000 units 07/17/17 21:00 07/23/17 08:15 Heparin SC 5,000 units Q12 [facility] Administration Protocol Hydralazine HCl 50 mg 07/19/17 13:24 07/23/17 08:16 Apresoline PO 50 mg Q8 [facility] Administration Levetiracetam 500 mg/ Sodium 105 mls @ 210 mls/hr 07/04/17 21:00 07/23/17 10: 13 Chloride IVPB 210 mls/hr Q12 [facility] Administration Cefepime HCl 1 gm/ Sodium 50 mls @ 50 mls/hr 07/13/17 09:00 07/23/17 08:20 Chloride IVPB 50 mls/hr DAILY [facility] Administration Protocol Insulin Human Lispro 0 units 07/12/17 09:45 07/23/17 11:23 Humalog SC Not Given Q6H [facility] Protocol Levothyroxine Sodium 50 mcg 07/05/17 06:30 07/23/17 05:29 Synthroid PO 50 mcg DAILY@0630 [facility] Administration Lisinopril 40 mg 07/19/17 12:45 07/23/17 08:57 Zestril PO 40 mg DAILY [facility] Administration Oxycodone/Acetaminophen 1 tab 07/22/17 13:00 07/23/17 09:34 Percocet 5/325 Mg Tab PO 07/25/17 13:01 1 tab Q4 [facility] Administration Pantoprazole Sodium 40 mg 07/08/17 21:00 07/23/17 09:28 Protonix Inj IVP 40 mg Q12 [facility] Administration Sodium Bicarbonate 1,300 mg 06/30/17 17:00 07/02/17 16:23 Sodium Bicarbonate Tab PO 1,300 mg Q8 [facility] Administration Spironolactone 25 mg 07/22/17 09:00 07/23/17 08:18 Aldactone PO 25 mg BID [facility] Administration Thiamine HCl 100 mg 07/15/17 09:00 07/23/17 08:17 Vitamin B1 Tab PO 100 mg DAILY [facility] Administration - Patient Studies Lab Studies: Microbiology Studies 06/25/17 16:51 Fungal Culture - Preliminary Pleural Fluid NO FUNGUS GROWTH IN 3 WEEKS. 07/07/17 06:17 Mycobacterial Culture - Preliminary Other: Please Indicate 07/06/17 10:31 Mycobacterial Culture - Preliminary Other: Please Indicate Lab Studies 07/23/17 07/23/17 07/23/17 Range/Units 11:21 04:30 04:30 WBC 7.9 (4.8-10.8) K/uL RBC 3.38 L (4.40-5.90) Mil/uL Hgb 9.8 L (12.0-18.0) g/dL Hct 31.9 L (35.0-51.0) % MCV 94.4 H (80.0-94.0) fl MCH 29.1 (27.0-31.0) pg MCHC 30.9 L (33.0-37.0) g/dL RDW 19.5 H (11.5-14.5) % Plt Count 315 (130-400) K/uL Sodium 149 H (132-148) mmol/l Potassium 3.8 (3.6-5.0) MMOL/L Chloride 117 H (98-107) mmol/L Carbon Dioxide 22 (22-30) mmol/L Anion Gap 14 (10-20) BUN 26 H (9-20) mg/dl Creatinine 2.1 H (0.8-1.5) mg/dl Est GFR ( Amer) 38 Est GFR (Non-Af Amer) 32 POC Glucose (mg/dL) 223 H (65-110) mg/dL Random Glucose 114 H (75-110) mg/dL Calcium 8.3 L (8.4-10.2) mg/dL Procalcitonin (0.19-0.49) NG/ML Absolute Lymphs (Flow) (850-3900) Cells/mcL % CD4 Cells (30-61) Percent Absolute CD4 Count (490-1740) Cells/mcL T-Help/Suppress Ratio (0.86-5.00) Ratio % CD8 Cells (12-42) Percent Absolute CD8 Count (180-1170) Cells/mcL T-Lymph Analys Comment 07/23/17 07/22/17 07/22/17 Range/Units 04:25 21:13 17:45 WBC (4.8-10.8) K/uL RBC (4.40-5.90) Mil/uL Hgb (12.0-18.0) g/dL Hct (35.0-51.0) % MCV (80.0-94.0) fl MCH (27.0-31.0) pg MCHC (33.0-37.0) g/dL RDW (11.5-14.5) % Plt Count (130-400) K/uL Sodium (132-148) mmol/l Potassium (3.6-5.0) MMOL/L Chloride (98-107) mmol/L Carbon Dioxide (22-30) mmol/L Anion Gap (10-20) BUN (9-20) mg/dl Creatinine (0.8-1.5) mg/dl Est GFR ( Amer) Est GFR (Non-Af Amer) POC Glucose (mg/dL) 124 H 171 H 185 H (65-110) mg/dL Random Glucose (75-110) mg/dL Calcium (8.4-10.2) mg/dL Procalcitonin (0.19-0.49) NG/ML Absolute Lymphs (Flow) (850-3900) Cells/mcL % CD4 Cells (30-61) Percent Absolute CD4 Count (490-1740) Cells/mcL T-Help/Suppress Ratio (0.86-5.00) Ratio % CD8 Cells (12-42) Percent Absolute CD8 Count (180-1170) Cells/mcL T-Lymph Analys Comment 07/22/17 07/21/17 Range/Units 05:00 04:20 WBC (4.8-10.8) K/uL RBC (4.40-5.90) Mil/uL Hgb (12.0-18.0) g/dL Hct (35.0-51.0) % MCV (80.0-94.0) fl MCH (27.0-31.0) pg MCHC (33.0-37.0) g/dL RDW (11.5-14.5) % Plt Count (130-400) K/uL Sodium (132-148) mmol/l Potassium (3.6-5.0) MMOL/L Chloride (98-107) mmol/L Carbon Dioxide (22-30) mmol/L Anion Gap (10-20) BUN (9-20) mg/dl Creatinine (0.8-1.5) mg/dl Est GFR ( Amer) Est GFR (Non-Af Amer) POC Glucose (mg/dL) (65-110) mg/dL Random Glucose (75-110) mg/dL Calcium (8.4-10.2) mg/dL Procalcitonin 0.21 (0.19-0.49) NG/ML Absolute Lymphs (Flow) 784 L (850-3900) Cells/mcL % CD4 Cells 50 (30-61) Percent Absolute CD4 Count 390 L (490-1740) Cells/mcL T-Help/Suppress Ratio 1.27 (0.86-5.00) Ratio % CD8 Cells 39 (12-42) Percent Absolute CD8 Count 308 (180-1170) Cells/mcL T-Lymph Analys Comment See note Laboratory Results - last 24 hr 07/21/17 07/22/17 07/22/17 04:20 05:00 17:45 WBC RBC Hgb Hct MCV MCH MCHC RDW Plt Count Sodium Potassium Chloride Carbon Dioxide Anion Gap BUN Creatinine Est GFR ( Amer) Est GFR (Non-Af Amer) POC Glucose (mg/dL) 185 H Random Glucose Calcium Procalcitonin 0.21 Absolute Lymphs (Flow) 784 L % CD4 Cells 50 Absolute CD4 Count 390 L T-Help/Suppress Ratio 1.27 % CD8 Cells 39 Absolute CD8 Count 308 T-Lymph Analys Comment See note 07/22/17 07/23/17 07/23/17 21:13 04:25 04:30 WBC 7.9 RBC 3.38 L Hgb 9.8 L Hct 31.9 L MCV 94.4 H MCH 29.1 MCHC 30.9 L RDW 19.5 H Plt Count 315 Sodium Potassium Chloride Carbon Dioxide Anion Gap BUN Creatinine Est GFR ( Amer) Est GFR (Non-Af Amer) POC Glucose (mg/dL) 171 H 124 H Random Glucose Calcium Procalcitonin Absolute Lymphs (Flow) % CD4 Cells Absolute CD4 Count T-Help/Suppress Ratio % CD8 Cells Absolute CD8 Count T-Lymph Analys Comment 07/23/17 07/23/17 04:30 11:21 WBC RBC Hgb Hct MCV MCH MCHC RDW Plt Count Sodium 149 H Potassium 3.8 Chloride 117 H Carbon Dioxide 22 Anion Gap 14 BUN 26 H Creatinine 2.1 H Est GFR ( Amer) 38 Est GFR (Non-Af Amer) 32 POC Glucose (mg/dL) 223 H Random Glucose 114 H Calcium 8.3 L Procalcitonin Absolute Lymphs (Flow) % CD4 Cells Absolute CD4 Count T-Help/Suppress Ratio % CD8 Cells Absolute CD8 Count T-Lymph Analys Comment Fingerstick Blood Sugar Results: 223 Critical Care Progress Note - Nutrition Nutrition: Nutrition Category Date Time Status Dysphagia/Modified Consistency Diet [DIET] Diets 07/18/17 Dinner Active Assessment/Plan - Assessment and Plan (Free Text) Assessment: 66 M with recurrent pleural effusions, HAP, CKD, DM nephropathy with nephrotic syndrome, HTN, Anemia. Clinically he is improving. Tolerating pureed diet will advance to soft. Neuro: AMS resolved. ?seizures. Patient awake and alert. Speaking more clearly. prolactin trending down. MRI reviewed. Pt currently on Keppra. Neurology following patient. Cardiovascular: HTN: On Norvasc, Cardizem, Lasix, hydralazine, Zestril. Remains uncontrolled. Respiratory: B/L pleural effusions, HAP: Patient on NC, tolerating well. However given bilateral effusions, if he becomes hypoxic/tachypneic will put back on high flow o2. Chest PT Q4H. 2 chest tubes on right chest. Pulmonary is following. Surgery is following. Possible pleurex catheter placement on Th/Fri. For HAP: on cefepime. CXR reviewed. GI: On pureed thickened feedings. Tolerating well. Advance as tolerated. Renal/: CKD with nephrotic syndrome: Nephrology is following. : On Hydralazine /Lisinopril, now added Lasix and Cardizem Endocrine: DM/ Hypothyroidism: on synthroid. Management as per endocrine. Heme: anemia 2 to CKD, on Procrit . Prophylaxis: DVT: Heparin 5,000U, SC, Q12 Case discussed with primary team, surgical team, and manager biostatistics. <Ervin Mata - Last Filed: 07/23/17 15:13> CCU Subjective - Physician Review Subjective (Free Text): Attestation: Patient seen and examined at the bedside with Resident Dr. Tita Magana; and I agree with her outline of plans and management documented above as discussed on AM rounds reflecting my review of all applicable clinical data, and participation in the care of the patient throughout the day in ICU; July 23, 2017.
--- NOTE | 2017-07-23 13:49 | CP.PCM.PN ---
Subjective - Date & Time of Evaluation Date of Evaluation: 07/23/17 Time of Evaluation: 13:47 - Subjective Subjective: Mr. Durand was seen and examined at the bedside in ICU. He is alert, but weak. He is currently on oxygen therapy via nasal cannula. He also has the right chest tubes draining to a serosanguinous minimal fluid. He is unable to stand up independently, needs total assist with ambulation, but able to answer to questions appropriately in Irish. There was no untoward events overnight. Objective - Vital Signs/Intake and Output Vital Signs (last 24 hours): Temp Pulse Resp BP Pulse Ox 97.7 F 71 16 135/80 99 07/23/17 12:27 07/23/17 13:00 07/23/17 13:00 07/23/17 13:00 07/23/17 13:00 Intake and Output: 07/23/17 07/23/17 06:59 18:59 Intake Total 465 240 Output Total 1370 Balance -905 240 - Medications Medications: Current Medications Acetylcysteine (Acetylcysteine 20%) 2 ml INH RBID [facility] Last Admin: 07/23/17 07:39 Dose: 2 ml Albuterol/Ipratropium (Duoneb 3 Mg/0.5 Mg (3 Ml) Ud) 3 ml INH RQ6 [facility] Last Admin: 07/23/17 13:46 Dose: 3 ml Amlodipine Besylate (Norvasc) 5 mg PO Q12H [facility] Last Admin: 07/23/17 08:18 Dose: 5 mg Aspirin (Ecotrin) 81 mg PO DAILY [facility] Last Admin: 07/18/17 09:23 Dose: Not Given Bacitracin (Bacitracin Oint) 1 applic TOP DAILY [facility] Last Admin: 07/23/17 08:59 Dose: 1 applic Calcium Acetate (Phoslo) 2,001 mg PO 0830,1200,1830 [facility] Last Admin: 07/14/17 12:26 Dose: 2,001 mg Dextrose (Dextrose 50% Inj) 0 ml IV STAT PRN; Protocol PRN Reason: Hypoglycemia Protocol Dextrose (Glutose 15) 0 gm PO ONCE PRN; Protocol PRN Reason: Hypoglycemia Protocol Dextrose (Dextrose 50% Inj) 50 ml IVP Q1H PRN PRN Reason: Hypoglycemia Diltiazem HCl (Cardizem Cd) 120 mg PO DAILY [facility] Last Admin: 07/23/17 08:18 Dose: 120 mg Epoetin Roel (Procrit) 14,000 unit SC MWF [facility] Last Admin: 07/23/17 11:18 Dose: 14,000 unit Fluconazole (Diflucan) 200 mg PO DAILY [facility] PRN Reason: Protocol Last Admin: 07/23/17 08:17 Dose: 200 mg Furosemide (Lasix) 40 mg IVP BID [facility] Last Admin: 07/23/17 08:19 Dose: 40 mg Glucagon (Glucagen Diagnostic Kit) 0 mg IM STAT PRN; Protocol PRN Reason: Hypoglycemia Protocol Heparin Sodium (Porcine) (Heparin) 5,000 units SC Q12 [facility] PRN Reason: Protocol Last Admin: 07/23/17 08:15 Dose: 5,000 units Hydralazine HCl (Apresoline) 50 mg PO Q8 [facility] Last Admin: 07/23/17 08:16 Dose: 50 mg Levetiracetam 500 mg/ Sodium (Chloride) 105 mls @ 210 mls/hr IVPB Q12 [facility] Last Admin: 07/23/17 10:13 Dose: 210 mls/hr Cefepime HCl 1 gm/ Sodium (Chloride) 50 mls @ 50 mls/hr IVPB DAILY [facility] PRN Reason: Protocol Last Admin: 07/23/17 08:20 Dose: 50 mls/hr Insulin Human Lispro (Humalog) 0 units SC Q6H [facility] PRN Reason: Protocol Last Admin: 07/23/17 11:23 Dose: Not Given Levothyroxine Sodium (Synthroid) 50 mcg PO DAILY@0630 [facility] Last Admin: 07/23/17 05:29 Dose: 50 mcg Lisinopril (Zestril) 40 mg PO DAILY [facility] Last Admin: 07/23/17 08:57 Dose: 40 mg Oxycodone/Acetaminophen (Percocet 5/325 Mg Tab) 1 tab PO Q4 [facility] Stop: 07/25/17 13:01 Last Admin: 07/23/17 09:34 Dose: 1 tab Sodium Bicarbonate (Sodium Bicarbonate Tab) 1,300 mg PO Q8 [facility] Last Admin: 07/02/17 16:23 Dose: 1,300 mg Spironolactone (Aldactone) 25 mg PO BID [facility] Last Admin: 07/23/17 08:18 Dose: 25 mg Thiamine HCl (Vitamin B1 Tab) 100 mg PO DAILY [facility] Last Admin: 07/23/17 08:17 Dose: 100 mg - Labs Labs: 07/23/17 04:30 07/23/17 04:30 PT 15.3 Seconds (9.8-13.1) H 07/18/17 05:30 INR 1.4 (0.9-1.2) H 07/18/17 05:30 APTT 34.2 Seconds (25.6-37.1) 07/18/17 05:30 - Constitutional Appears: No Acute Distress - Head Exam Head Exam: NORMAL INSPECTION - Neurological Exam Neurological Exam: Alert, Awake Neuro motor strength exam: Left Upper Extremity: 4, Right Upper Extremity: 4, Left Lower Extremity: 2/1, Right Lower Extremity: 2/1 Additional comments: He uis able to answer questions, follow commands. Assessment and Plan (1) Altered mental status Assessment & Plan: Case discussed with Dr. Nicholas, continue all current medical, physical, and occupational therapies. Treat any underlying electrolyte abnormality. Status: Acute
--- NOTE | 2017-07-23 14:40 | CP.PCM.PN ---
Subjective - Date & Time of Evaluation Date of Evaluation: 07/23/17 Time of Evaluation: 11:00 - Subjective Subjective: CT surgery progress note for Dr. Hannah Vila, PGY-1 Pt S & E at bedside. Pt sitting in chair, reports pain at CT insertion site. R posterior CT w/60cc, R anterior CT w/100cc over 12H. Both on waterseal. No acute events overnight per nursing. Objective - Vital Signs/Intake and Output Vital Signs (last 24 hours): Temp Pulse Resp BP Pulse Ox 97.7 F 74 18 154/68 H 99 07/23/17 12:27 07/23/17 14:00 07/23/17 14:00 07/23/17 14:00 07/23/17 14:00 Intake and Output: 07/23/17 07/23/17 06:59 18:59 Intake Total 465 240 Output Total 1370 Balance -905 240 - Medications Medications: Current Medications Acetylcysteine (Acetylcysteine 20%) 2 ml INH RBID [facility] Last Admin: 07/23/17 07:39 Dose: 2 ml Albuterol/Ipratropium (Duoneb 3 Mg/0.5 Mg (3 Ml) Ud) 3 ml INH RQ6 [facility] Last Admin: 07/23/17 13:46 Dose: 3 ml Amlodipine Besylate (Norvasc) 5 mg PO Q12H [facility] Last Admin: 07/23/17 08:18 Dose: 5 mg Aspirin (Ecotrin) 81 mg PO DAILY [facility] Last Admin: 07/18/17 09:23 Dose: Not Given Bacitracin (Bacitracin Oint) 1 applic TOP DAILY [facility] Last Admin: 07/23/17 08:59 Dose: 1 applic Calcium Acetate (Phoslo) 2,001 mg PO 0830,1200,1830 [facility] Last Admin: 07/14/17 12:26 Dose: 2,001 mg Dextrose (Dextrose 50% Inj) 0 ml IV STAT PRN; Protocol PRN Reason: Hypoglycemia Protocol Dextrose (Glutose 15) 0 gm PO ONCE PRN; Protocol PRN Reason: Hypoglycemia Protocol Dextrose (Dextrose 50% Inj) 50 ml IVP Q1H PRN PRN Reason: Hypoglycemia Diltiazem HCl (Cardizem Cd) 120 mg PO DAILY [facility] Last Admin: 07/23/17 08:18 Dose: 120 mg Epoetin Roel (Procrit) 14,000 unit SC MWF [facility] Last Admin: 07/23/17 11:18 Dose: 14,000 unit Fluconazole (Diflucan) 200 mg PO DAILY [facility] PRN Reason: Protocol Last Admin: 07/23/17 08:17 Dose: 200 mg Furosemide (Lasix) 40 mg IVP BID [facility] Last Admin: 07/23/17 08:19 Dose: 40 mg Glucagon (Glucagen Diagnostic Kit) 0 mg IM STAT PRN; Protocol PRN Reason: Hypoglycemia Protocol Heparin Sodium (Porcine) (Heparin) 5,000 units SC Q12 [facility] PRN Reason: Protocol Last Admin: 07/23/17 08:15 Dose: 5,000 units Hydralazine HCl (Apresoline) 50 mg PO Q8 [facility] Last Admin: 07/23/17 08:16 Dose: 50 mg Levetiracetam 500 mg/ Sodium (Chloride) 105 mls @ 210 mls/hr IVPB Q12 [facility] Last Admin: 07/23/17 10:13 Dose: 210 mls/hr Cefepime HCl 1 gm/ Sodium (Chloride) 50 mls @ 50 mls/hr IVPB DAILY [facility] PRN Reason: Protocol Last Admin: 07/23/17 08:20 Dose: 50 mls/hr Insulin Human Lispro (Humalog) 0 units SC Q6H [facility] PRN Reason: Protocol Last Admin: 07/23/17 11:23 Dose: Not Given Levothyroxine Sodium (Synthroid) 50 mcg PO DAILY@0630 [facility] Last Admin: 07/23/17 05:29 Dose: 50 mcg Lisinopril (Zestril) 40 mg PO DAILY [facility] Last Admin: 07/23/17 08:57 Dose: 40 mg Oxycodone/Acetaminophen (Percocet 5/325 Mg Tab) 1 tab PO Q4 [facility] Stop: 07/25/17 13:01 Last Admin: 07/23/17 09:34 Dose: 1 tab Sodium Bicarbonate (Sodium Bicarbonate Tab) 1,300 mg PO Q8 [facility] Last Admin: 07/02/17 16:23 Dose: 1,300 mg Spironolactone (Aldactone) 25 mg PO BID [facility] Last Admin: 07/23/17 08:18 Dose: 25 mg Thiamine HCl (Vitamin B1 Tab) 100 mg PO DAILY [facility] Last Admin: 07/23/17 08:17 Dose: 100 mg - Labs Labs: 07/23/17 04:30 07/23/17 04:30 PT 15.3 Seconds (9.8-13.1) H 07/18/17 05:30 INR 1.4 (0.9-1.2) H 07/18/17 05:30 APTT 34.2 Seconds (25.6-37.1) 07/18/17 05:30 - Constitutional Appears: Non-toxic, No Acute Distress - Head Exam Head Exam: ATRAUMATIC, NORMAL INSPECTION, NORMOCEPHALIC - Eye Exam Eye Exam: EOMI, Normal appearance - ENT Exam ENT Exam: Mucous Membranes Moist, Normal Exam - Neck Exam Neck Exam: Full ROM, Normal Inspection - Respiratory Exam Respiratory Exam: Chest Wall Tenderness (over Left flank- CT insertion site), NORMAL BREATHING PATTERN. absent: Accessory Muscle Use, Respiratory Distress Additional comments: CT insertion site dressing clean/dry/intact - Cardiovascular Exam Cardiovascular Exam: REGULAR RHYTHM, +S1, +S2 - GI/Abdominal Exam GI & Abdominal Exam: Soft. absent: Distended, Firm, Guarding, Tenderness - Extremities Exam Extremities Exam: absent: Pedal Edema Additional comments: Upper extremities with edema bilaterally - Neurological Exam Neurological Exam: Alert, Awake, CN II-XII Intact - Psychiatric Exam Psychiatric exam: Normal Affect, Normal Mood - Skin Skin Exam: Dry, Intact, Normal Color, Warm Assessment and Plan - Assessment and Plan (Free Text) Assessment: 66M POD#8 s/p mini R mini thoracotamy and anterior and posterior chest tube placement, and removal of traumatic chest tube. Plan: Patient continues to be stable R CTs to suction Monitor outputs FU daily CXRs Cont Aggressive pulmonary toilet Plan for OR pleurovac on Friday Will follow Will KENYA attending [place], PGY-1
--- NOTE | 2017-07-23 15:19 | PN ---
DATE: ENDOCRINOLOGY FOLLOWUP NOTE LOCATION: Room 433, ICU. SUBJECTIVE: This is a 66-year-old male with recent acute respiratory failure and underlying pleural effusion with ongoing chest tube insertion and drainage and is now being followed closely for metabolic management. He remains clinically euthyroid at this time and his glycemic levels are fluctuating but improved and the glucose values today have ranged from 124 to 171 and 223 mg/dL. The latest chemistry showed a BUN of 26, sodium 149, potassium 3.8, chloride 117, CO2 of 22, glucose 114, and creatinine 2.1. So, at this time, we will continue the levothyroxine given as 50 mcg once daily as ordered. We will also continue the low-dose correction scale using regular insulin as given. We will titrate incrementally as indicated to optimize metabolic control. We will follow. Bettina Mann MD
--- NOTE | 2017-07-23 18:25 | CP.PCM.PN ---
Subjective - Date & Time of Evaluation Date of Evaluation: 07/23/17 Time of Evaluation: 19:00 - Subjective Subjective: Patient still with pain at R chest tube site; otherwise tolerating diet well; no shortness of breath; Objective - Vital Signs/Intake and Output Vital Signs (last 24 hours): Temp Pulse Resp BP Pulse Ox 97.6 F 72 22 151/62 H 94 L 07/23/17 16:00 07/23/17 18:00 07/23/17 18:00 07/23/17 18:00 07/23/17 18:00 Intake and Output: 07/23/17 07/23/17 06:59 18:59 Intake Total 465 600 Output Total 1370 910 Balance -905 -310 - Medications Medications: Current Medications Acetylcysteine (Acetylcysteine 20%) 2 ml INH RBID [facility] Last Admin: 07/23/17 07:39 Dose: 2 ml Albuterol/Ipratropium (Duoneb 3 Mg/0.5 Mg (3 Ml) Ud) 3 ml INH RQ6 [facility] Last Admin: 07/23/17 13:46 Dose: 3 ml Amlodipine Besylate (Norvasc) 5 mg PO Q12H [facility] Last Admin: 07/23/17 08:18 Dose: 5 mg Aspirin (Ecotrin) 81 mg PO DAILY [facility] Last Admin: 07/18/17 09:23 Dose: Not Given Bacitracin (Bacitracin Oint) 1 applic TOP DAILY [facility] Last Admin: 07/23/17 08:59 Dose: 1 applic Calcium Acetate (Phoslo) 2,001 mg PO 0830,1200,1830 [facility] Last Admin: 07/14/17 12:26 Dose: 2,001 mg Dextrose (Dextrose 50% Inj) 0 ml IV STAT PRN; Protocol PRN Reason: Hypoglycemia Protocol Dextrose (Glutose 15) 0 gm PO ONCE PRN; Protocol PRN Reason: Hypoglycemia Protocol Dextrose (Dextrose 50% Inj) 50 ml IVP Q1H PRN PRN Reason: Hypoglycemia Diltiazem HCl (Cardizem Cd) 120 mg PO DAILY [facility] Last Admin: 07/23/17 08:18 Dose: 120 mg Epoetin Roel (Procrit) 14,000 unit SC MWF [facility] Last Admin: 07/23/17 11:18 Dose: 14,000 unit Fluconazole (Diflucan) 200 mg PO DAILY [facility] PRN Reason: Protocol Last Admin: 07/23/17 08:17 Dose: 200 mg Furosemide (Lasix) 40 mg IVP BID [facility] Last Admin: 07/23/17 17:00 Dose: 40 mg Glucagon (Glucagen Diagnostic Kit) 0 mg IM STAT PRN; Protocol PRN Reason: Hypoglycemia Protocol Heparin Sodium (Porcine) (Heparin) 5,000 units SC Q12 [facility] PRN Reason: Protocol Last Admin: 07/23/17 08:15 Dose: 5,000 units Hydralazine HCl (Apresoline) 50 mg PO Q8 [facility] Last Admin: 07/23/17 16:21 Dose: 50 mg Levetiracetam 500 mg/ Sodium (Chloride) 105 mls @ 210 mls/hr IVPB Q12 [facility] Last Admin: 07/23/17 10:13 Dose: 210 mls/hr Insulin Human Lispro (Humalog) 0 units SC Q6H [facility] PRN Reason: Protocol Last Admin: 07/23/17 11:23 Dose: Not Given Levothyroxine Sodium (Synthroid) 50 mcg PO DAILY@0630 [facility] Last Admin: 07/23/17 05:29 Dose: 50 mcg Lisinopril (Zestril) 40 mg PO DAILY [facility] Last Admin: 07/23/17 08:57 Dose: 40 mg Oxycodone/Acetaminophen (Percocet 5/325 Mg Tab) 1 tab PO Q4 [facility] Stop: 07/25/17 13:01 Last Admin: 07/23/17 16:25 Dose: Not Given Sodium Bicarbonate (Sodium Bicarbonate Tab) 1,300 mg PO Q8 [facility] Last Admin: 07/02/17 16:23 Dose: 1,300 mg Spironolactone (Aldactone) 25 mg PO BID [facility] Last Admin: 07/23/17 16:21 Dose: 25 mg Thiamine HCl (Vitamin B1 Tab) 100 mg PO DAILY [facility] Last Admin: 07/23/17 08:17 Dose: 100 mg - Labs Labs: 07/23/17 04:30 07/23/17 04:30 PT 15.3 Seconds (9.8-13.1) H 07/18/17 05:30 INR 1.4 (0.9-1.2) H 07/18/17 05:30 APTT 34.2 Seconds (25.6-37.1) 01/19/18 05:30 - Constitutional Appears: Non-toxic, No Acute Distress - Eye Exam Eye Exam: absent: Scleral icterus - ENT Exam ENT Exam: Mucous Membranes Moist - Respiratory Exam Respiratory Exam: absent: Respiratory Distress Additional comments: L side air movement much improved; ronchorous sounds b/l - Cardiovascular Exam Cardiovascular Exam: RRR, +S1, +S2 - GI/Abdominal Exam GI & Abdominal Exam: Distended, Soft. absent: Tenderness - Extremities Exam Additional comments: marked edema in dependent areas and b/l arms; - Neurological Exam Neurological Exam: Alert, Awake - Psychiatric Exam Psychiatric exam: absent: Agitated - Skin Skin Exam: Warm. absent: Cyanosis Assessment and Plan (1) Acute renal failure Assessment & Plan: ATN resolving; relatively stable electrolyte and volume status; trying to lower BP slowly, goal for now is SBP in 140's Status: Acute (2) Nephrotic syndrome Assessment & Plan: Severe proteinuria; thus far tolerating lisinopril and aldactone well (ie. no hyperkalemia) but this may change as diet progresses; continue diltiazem as well ; Status: Chronic (3) Pleural effusion Assessment & Plan: b/l effusions; for R sided pleurx catheter later this week; hope that aggressive KEVIN blockade and diuretics will help also; Status: Chronic (4) Hypertensive CKD (chronic kidney disease) Assessment & Plan: BP overall much better controlled; eventual goal is <130/80; continue current meds for now; Status: Acute (5) Chronic kidney disease, stage 3 (moderate) Assessment & Plan: Renal function stable despite aggressive KEVIN blockade and diuretics; continue current meds; Status: Chronic (6) Hypothermia Status: Acute (7) Altered mental status Status: Acute (8) SIRS (systemic inflammatory response syndrome) Status: Acute (9) Anemia Assessment & Plan: Hgb stable, continue EPO; Status: Chronic (10) Monoclonal gammopathy Status: Chronic
[2017-07-24] MEDS: Albuterol-Ipratrop 3 mg / 0.5 (3 ml) UD INH SCH ×4 (01:04→19:14)
[2017-07-24] MEDS: Oxycodone/Acetaminophen 5/325 mg Tab PO SCH ×5 (01:31→20:13)
[2017-07-24] MEDS: Insulin Lispro (humaLOG) 100 Units/ml Inj SC SCH ×4 (04:39→22:00)
[2017-07-24 05:56] LABS: HEMOGLOBIN 9.7 g/dL (12.0-18.0); MEAN CELL VOLUME 93.3 fl (80.0-94.0); MEAN CORPUSCULAR HEMOGLOBIN 29.5 pg (27.0-31.0); MEAN CORPUSCULAR HGB CONC 31.7 g/dL (33.0-37.0); RBC 3.3 Mil/uL (4.40-5.90); RED CELL DISTRIBUTION WIDTH 19.5 % (11.5-14.5); WHITE BLOOD COUNT 7.6 K/uL (4.8-10.8)
[2017-07-24 06:00] LABS: CALCIUM 8.5 mg/dL (8.4-10.2)
[2017-07-24] MEDS: Levothyroxine 50 MCG TAB PO SCH (06:10)
--- NOTE | 2017-07-24 06:15 | CP.PCM.PN ---
Subjective - Date & Time of Evaluation Date of Evaluation: 07/24/17 Time of Evaluation: 06:20 - Subjective Subjective: Vital Signs: 36.7- 84- 154/65- 21- 96% (4LNC) Chest Tube Rt Post: 1570ml/+185ml total/24hr Chest Tube Rt Ant: 620ml/--ml total/24hr LEFT subclavian: patent, non-erythematous Salazar Catheter: Improved, yellow urine 66M resting but easily awakened. Patient continues to improve with cognition, but some confusion remains. Reporting minimal pain at RIGHT chest wall 4-510. Otherwise, denies SOB. Objective - Vital Signs/Intake and Output Vital Signs (last 24 hours): Temp Pulse Resp BP Pulse Ox 36.5 C 79 29 H 150/65 97 07/24/17 04:00 07/24/17 06:00 07/24/17 06:00 07/24/17 06:00 07/24/17 06:00 Intake and Output: 07/23/17 07/24/17 18:59 06:59 Intake Total 600 24 Output Total 910 1000 Balance -310 -976 - Medications Medications: Current Medications Acetylcysteine (Acetylcysteine 20%) 2 ml INH RBID [facility] Last Admin: 07/23/17 19:28 Dose: 2 ml Albuterol/Ipratropium (Duoneb 3 Mg/0.5 Mg (3 Ml) Ud) 3 ml INH RQ6 [facility] Last Admin: 07/24/17 01:04 Dose: 3 ml Amlodipine Besylate (Norvasc) 5 mg PO Q12H [facility] Last Admin: 07/23/17 20:46 Dose: 5 mg Aspirin (Ecotrin) 81 mg PO DAILY [facility] Last Admin: 07/18/17 09:23 Dose: Not Given Bacitracin (Bacitracin Oint) 1 applic TOP DAILY [facility] Last Admin: 07/23/17 08:59 Dose: 1 applic Calcium Acetate (Phoslo) 2,001 mg PO 0830,1200,1830 [facility] Last Admin: 07/14/17 12:26 Dose: 2,001 mg Dextrose (Dextrose 50% Inj) 0 ml IV STAT PRN; Protocol PRN Reason: Hypoglycemia Protocol Dextrose (Glutose 15) 0 gm PO ONCE PRN; Protocol PRN Reason: Hypoglycemia Protocol Dextrose (Dextrose 50% Inj) 50 ml IVP Q1H PRN PRN Reason: Hypoglycemia Diltiazem HCl (Cardizem Cd) 120 mg PO DAILY [facility] Last Admin: 07/23/17 08:18 Dose: 120 mg Epoetin Roel (Procrit) 14,000 unit SC MWF [facility] Last Admin: 07/23/17 11:18 Dose: 14,000 unit Fluconazole (Diflucan) 200 mg PO DAILY [facility] PRN Reason: Protocol Last Admin: 07/23/17 08:17 Dose: 200 mg Furosemide (Lasix) 40 mg IVP BID [facility] Last Admin: 07/23/17 17:00 Dose: 40 mg Glucagon (Glucagen Diagnostic Kit) 0 mg IM STAT PRN; Protocol PRN Reason: Hypoglycemia Protocol Heparin Sodium (Porcine) (Heparin) 5,000 units SC Q12 [facility] PRN Reason: Protocol Last Admin: 07/23/17 20:22 Dose: 5,000 units Hydralazine HCl (Apresoline) 50 mg PO Q8 [facility] Last Admin: 07/24/17 01:31 Dose: 50 mg Levetiracetam 500 mg/ Sodium (Chloride) 105 mls @ 210 mls/hr IVPB Q12 [facility] Last Admin: 07/23/17 20:23 Dose: 210 mls/hr Insulin Human Lispro (Humalog) 0 units SC Q6H [facility] PRN Reason: Protocol Last Admin: 07/24/17 04:39 Dose: Not Given Levothyroxine Sodium (Synthroid) 50 mcg PO DAILY@0630 [facility] Last Admin: 07/24/17 06:10 Dose: 50 mcg Lisinopril (Zestril) 40 mg PO DAILY [facility] Last Admin: 07/23/17 08:57 Dose: 40 mg Oxycodone/Acetaminophen (Percocet 5/325 Mg Tab) 1 tab PO Q4 [facility] Stop: 07/25/17 13:01 Last Admin: 07/24/17 05:41 Dose: Not Given Sodium Bicarbonate (Sodium Bicarbonate Tab) 1,300 mg PO Q8 [facility] Last Admin: 07/02/17 16:23 Dose: 1,300 mg Spironolactone (Aldactone) 25 mg PO BID [facility] Last Admin: 07/23/17 16:21 Dose: 25 mg Thiamine HCl (Vitamin B1 Tab) 100 mg PO DAILY [facility] Last Admin: 07/23/17 08:17 Dose: 100 mg - Labs Labs: 07/24/17 04:20 07/24/17 04:20 PT 15.3 Seconds (9.8-13.1) H 07/18/17 05:30 INR 1.4 (0.9-1.2) H 07/18/17 05:30 APTT 34.2 Seconds (25.6-37.1) 07/18/17 05:30 - Constitutional Appears: Non-toxic, No Acute Distress - Head Exam Head Exam: ATRAUMATIC, NORMAL INSPECTION - Eye Exam Eye Exam: EOMI, Normal appearance - ENT Exam ENT Exam: Mucous Membranes Dry, Mucous Membranes Moist - Respiratory Exam Respiratory Exam: Decreased Breath Sounds (LLL), NORMAL BREATHING PATTERN - Cardiovascular Exam Cardiovascular Exam: REGULAR RHYTHM, +S1, +S2 - GI/Abdominal Exam GI & Abdominal Exam: Soft, Normal Bowel Sounds - Extremities Exam Extremities Exam: Full ROM (but weakened), Normal Capillary Refill - Neurological Exam Neurological Exam: Alert, Awake - Psychiatric Exam Psychiatric exam: Normal Affect - Skin Skin Exam: Dry, Warm Assessment and Plan - Assessment and Plan (Free Text) Plan: 1) Acute Respiratory Failure secondary to recurrent pleural effusions thought to be secondary to nephrotic syndrome after competing etiologies investigated. Pt is now extubated and continues on 4LNC, still with right - sided chest tubes (Post/Ant) draining less, plan for discontinuation of chest tubes, no further mention of plans for pleurex. The left lung continues with mod-large loculated effusion and improved aeration in JUNE. - c/w nasal cannula, will likely c/w oxygen requirement due to pulmonary condition - Bed program for Chest PT Q4H, c/w suctioning when possible and medication as recommended by Pulmonary. - c/w aggressive PT - Transfer to Telemetry when clinically indicated, will investigate possibility of getting [facility] "Pulmonary/Respiratory function bed" which at this time is helping with pulmonary toilet. - CT Surgery Consult (Dr Gannon) appreciated: Chest tubes to water seal, no further plans for pleurex catheter planned Fri. Pt not a good candidate for aggressive intervention on LEFT loculated effusion. - Pulmonary Consult (Dr Raymond)appreciated: Chest PT, bronchodilators, mucomyst , c/w current management - ID Consult (Dr Dloan) appreciated: No febrile episodes, culture if febrile - Nephrology Consult (Dr Luz) appreciated: c/w medically controlling nephrotic syndrome with ACEI/CCB, Aldactone and Lasix started (monitor for hyperkalemia), Anemia: EPO MWF. HTN 2/2 CKD: Lasix 40mg, BID 3) Hypernatremia- Slight bump to 151 - monitor with BMP - Will f/u Nephrology recommendations - Encourage and have accessible PO hydration 4) HAP- PCT: 0.21, as per Dr Kelsi daniels to d/c Cefepime and culture if febrile - ID consultation (Dr Dolan) appreciated 5) DM nephropathy - Kidney biopsy 06/05/17: Diabetic nephropathy, nodular glomerulosclerosis, associated with aprox 40 % globally sclerosed glomeruli( calss III), 10-15 % segmentally sclerosed glomeruli, docal moderate interstitial fibrosis and mod vascular sclerosis, including marked hyaline arteriolosclerosis.NO EVIDENCE OF MONOCLONAL LIGHT OR HEAVY CHAIN-RELATED RENAL DISEASE. Renal duplex: no renal vein thrombosis - Renal duplex: no renal vein thrombosis 6) CKD stage 4- BUN/Cr stable today - Monitor BUN/Cr 7) Hypothyroidism, subclinical: TSH- 3.31 - Econdrinologist consult (Dr Mann) appreciated - c/w levothryroxin 50 mcg daily 8) Hyperprolactinemia- improving -Prolactin trending down last 27.1 -MRI brain:no intra-cranial hemorrhage, chronic lacunar infarct b/l cerebral, changes in dali may represent chronic ischemia or sequela of osmotic myelonilolysis not excluded.chronic b/l basal nuclei lacunar infarcts, mastoid opacification secondary to intubation 9) Pressure Ulcer and TDI -improving 10) pEF CHF - Echo 05/31/17 normal EF 60-65% - Pt on ACEI 11) DM 2: stable - Lispro, SSI, Low dose - Accu-checks 12) HTN - Hydralazine 50 Q8 - Lisinopril 40mg, Daily - Norvasc 5mg, Q12H (d/w user experience manager) - Cardizem 120mg, PO, Daily 13) Anemia- stable - secondary to CKD - c/w Procrit MWF 14) DVT prophylaxis - Heparin 5,000U, SC, Q12H 15) GI prophylaxis -Pantoprazol 40 mg IV
[2017-07-24] MEDS: Acetylcysteine 20% Inhal Soln (4ml) INH SCH ×2 (07:49→19:14)
[2017-07-24] MEDS: Sodium Chloride 3% for Inhalation 4 ML VIAL.NEB IH SCH (07:49)
--- NOTE | 2017-07-24 08:25 | CP.PCM.PN ---
Subjective - Date & Time of Evaluation Date of Evaluation: 07/24/17 Time of Evaluation: 08:23 - Subjective Subjective: Cardiothoracic Progress Note for Dr. Gannon Pt was seen and examined this AM at bedside. No acute events reported overnight. Chest tube outputs are Anterior 50cc and posterior chest tube 60cc. Patient complaining of pain at chest tube insertions sites. Objective - Vital Signs/Intake and Output Vital Signs (last 24 hours): Temp Pulse Resp BP Pulse Ox 97.7 F 79 29 H 150/65 97 07/24/17 04:00 07/24/17 06:00 07/24/17 06:00 07/24/17 06:00 07/24/17 06:00 Intake and Output: 07/24/17 07/24/17 06:59 18:59 Intake Total 24 120 Output Total 1000 Balance -976 120 - Medications Medications: Current Medications Acetylcysteine (Acetylcysteine 20%) 2 ml INH RBID [facility] Last Admin: 07/24/17 07:49 Dose: 2 ml Albuterol/Ipratropium (Duoneb 3 Mg/0.5 Mg (3 Ml) Ud) 3 ml INH RQ6 [facility] Last Admin: 07/24/17 07:48 Dose: 3 ml Amlodipine Besylate (Norvasc) 5 mg PO Q12H [facility] Last Admin: 07/23/17 20:46 Dose: 5 mg Aspirin (Ecotrin) 81 mg PO DAILY [facility] Last Admin: 07/18/17 09:23 Dose: Not Given Bacitracin (Bacitracin Oint) 1 applic TOP DAILY [facility] Last Admin: 07/23/17 08:59 Dose: 1 applic Calcium Acetate (Phoslo) 2,001 mg PO 0830,1200,1830 [facility] Last Admin: 07/14/17 12:26 Dose: 2,001 mg Dextrose (Dextrose 50% Inj) 0 ml IV STAT PRN; Protocol PRN Reason: Hypoglycemia Protocol Dextrose (Glutose 15) 0 gm PO ONCE PRN; Protocol PRN Reason: Hypoglycemia Protocol Dextrose (Dextrose 50% Inj) 50 ml IVP Q1H PRN PRN Reason: Hypoglycemia Diltiazem HCl (Cardizem Cd) 120 mg PO DAILY [facility] Last Admin: 07/23/17 08:18 Dose: 120 mg Epoetin Roel (Procrit) 14,000 unit SC MWF [facility] Last Admin: 07/23/17 11:18 Dose: 14,000 unit Fluconazole (Diflucan) 200 mg PO DAILY [facility] PRN Reason: Protocol Last Admin: 07/23/17 08:17 Dose: 200 mg Furosemide (Lasix) 40 mg IVP BID [facility] Last Admin: 07/23/17 17:00 Dose: 40 mg Glucagon (Glucagen Diagnostic Kit) 0 mg IM STAT PRN; Protocol PRN Reason: Hypoglycemia Protocol Heparin Sodium (Porcine) (Heparin) 5,000 units SC Q12 [facility] PRN Reason: Protocol Last Admin: 07/23/17 20:22 Dose: 5,000 units Hydralazine HCl (Apresoline) 50 mg PO Q8 [facility] Last Admin: 07/24/17 01:31 Dose: 50 mg Levetiracetam 500 mg/ Sodium (Chloride) 105 mls @ 210 mls/hr IVPB Q12 [facility] Last Admin: 07/23/17 20:23 Dose: 210 mls/hr Insulin Human Lispro (Humalog) 0 units SC Q6H [facility] PRN Reason: Protocol Last Admin: 07/24/17 04:39 Dose: Not Given Levothyroxine Sodium (Synthroid) 50 mcg PO DAILY@0630 [facility] Last Admin: 07/24/17 06:10 Dose: 50 mcg Lisinopril (Zestril) 40 mg PO DAILY [facility] Last Admin: 07/23/17 08:57 Dose: 40 mg Oxycodone/Acetaminophen (Percocet 5/325 Mg Tab) 1 tab PO Q4 [facility] Stop: 07/25/17 13:01 Last Admin: 07/24/17 05:41 Dose: Not Given Sodium Bicarbonate (Sodium Bicarbonate Tab) 1,300 mg PO Q8 [facility] Last Admin: 07/02/17 16:23 Dose: 1,300 mg Spironolactone (Aldactone) 25 mg PO BID [facility] Last Admin: 07/23/17 16:21 Dose: 25 mg Thiamine HCl (Vitamin B1 Tab) 100 mg PO DAILY [facility] Last Admin: 07/23/17 08:17 Dose: 100 mg - Labs Labs: 07/24/17 04:20 07/24/17 04:20 PT 15.3 Seconds (9.8-13.1) H 07/18/17 05:30 INR 1.4 (0.9-1.2) H 07/18/17 05:30 APTT 34.2 Seconds (25.6-37.1) 07/18/17 05:30 - Constitutional Appears: Non-toxic, No Acute Distress - Head Exam Head Exam: ATRAUMATIC, NORMOCEPHALIC - Eye Exam Eye Exam: EOMI - ENT Exam ENT Exam: Mucous Membranes Moist - Respiratory Exam Respiratory Exam: NORMAL BREATHING PATTERN Additional comments: Chest tube dressings Dry and intact, chest tube tubing with minimal clotted blood and serosang fluid - Cardiovascular Exam Cardiovascular Exam: +S1, +S2 - GI/Abdominal Exam GI & Abdominal Exam: Soft. absent: Guarding, Rigid, Tenderness - Neurological Exam Neurological Exam: Alert, Awake - Skin Skin Exam: Dry, Intact Assessment and Plan - Assessment and Plan (Free Text) Assessment: 66M with nephrotic syndrome s/p chest tube insertion Follow chest tube output Daily CXR Treatment of nephrotic syndrome by primary team and renal D/W Dr. Jagdeep West PGY2
[2017-07-24] MEDS: levETIRAcetam 500 MG in Sodium Chloride 0.9% 100 ML IVPB SCH ×2 (08:26→20:09)
--- NOTE | 2017-07-24 08:58 | CP.PCM.PN ---
Subjective - Date & Time of Evaluation Date of Evaluation: 07/24/17 Time of Evaluation: 08:55 - Subjective Subjective: Mr. Durand was seen and examined at the bedside. He is alert, oriented and able to follow commands. He is able to feed himself with regular food. He remains with right chets tubes draining to a scanty serosanguinous fluid. He also has bilateral lower extremities SCD's. His upper extremities has edema. Objective - Vital Signs/Intake and Output Vital Signs (last 24 hours): Temp Pulse Resp BP Pulse Ox 97.7 F 81 29 H 156/70 H 97 07/24/17 04:00 07/24/17 08:26 07/24/17 06:00 07/24/17 08:26 07/24/17 06:00 Intake and Output: 07/24/17 07/24/17 06:59 18:59 Intake Total 24 120 Output Total 1000 Balance -976 120 - Medications Medications: Current Medications Acetylcysteine (Acetylcysteine 20%) 2 ml INH RBID [facility] Last Admin: 07/24/17 07:49 Dose: 2 ml Albuterol/Ipratropium (Duoneb 3 Mg/0.5 Mg (3 Ml) Ud) 3 ml INH RQ6 [facility] Last Admin: 07/24/17 07:48 Dose: 3 ml Amlodipine Besylate (Norvasc) 5 mg PO Q12H [facility] Last Admin: 07/24/17 08:26 Dose: 5 mg Aspirin (Ecotrin) 81 mg PO DAILY [facility] Last Admin: 07/18/17 09:23 Dose: Not Given Bacitracin (Bacitracin Oint) 1 applic TOP DAILY [facility] Last Admin: 07/23/17 08:59 Dose: 1 applic Calcium Acetate (Phoslo) 2,001 mg PO 0830,1200,1830 [facility] Last Admin: 07/14/17 12:26 Dose: 2,001 mg Dextrose (Dextrose 50% Inj) 0 ml IV STAT PRN; Protocol PRN Reason: Hypoglycemia Protocol Dextrose (Glutose 15) 0 gm PO ONCE PRN; Protocol PRN Reason: Hypoglycemia Protocol Dextrose (Dextrose 50% Inj) 50 ml IVP Q1H PRN PRN Reason: Hypoglycemia Diltiazem HCl (Cardizem Cd) 120 mg PO DAILY [facility] Last Admin: 07/23/17 08:18 Dose: 120 mg Epoetin Roel (Procrit) 14,000 unit SC MWF [facility] Last Admin: 07/23/17 11:18 Dose: 14,000 unit Fluconazole (Diflucan) 200 mg PO DAILY [facility] PRN Reason: Protocol Last Admin: 07/24/17 08:25 Dose: 200 mg Furosemide (Lasix) 40 mg IVP BID [facility] Last Admin: 07/23/17 17:00 Dose: 40 mg Glucagon (Glucagen Diagnostic Kit) 0 mg IM STAT PRN; Protocol PRN Reason: Hypoglycemia Protocol Heparin Sodium (Porcine) (Heparin) 5,000 units SC Q12 [facility] PRN Reason: Protocol Last Admin: 07/24/17 08:27 Dose: 5,000 units Hydralazine HCl (Apresoline) 50 mg PO Q8 [facility] Last Admin: 07/24/17 08:24 Dose: 50 mg Levetiracetam 500 mg/ Sodium (Chloride) 105 mls @ 210 mls/hr IVPB Q12 [facility] Last Admin: 07/24/17 08:26 Dose: 210 mls/hr Insulin Human Lispro (Humalog) 0 units SC Q6H [facility] PRN Reason: Protocol Last Admin: 07/24/17 04:39 Dose: Not Given Levothyroxine Sodium (Synthroid) 50 mcg PO DAILY@0630 [facility] Last Admin: 07/24/17 06:10 Dose: 50 mcg Lisinopril (Zestril) 40 mg PO DAILY [facility] Last Admin: 07/23/17 08:57 Dose: 40 mg Oxycodone/Acetaminophen (Percocet 5/325 Mg Tab) 1 tab PO Q4 [facility] Stop: 07/25/17 13:01 Last Admin: 07/24/17 05:41 Dose: Not Given Sodium Bicarbonate (Sodium Bicarbonate Tab) 1,300 mg PO Q8 [facility] Last Admin: 07/02/17 16:23 Dose: 1,300 mg Spironolactone (Aldactone) 25 mg PO BID [facility] Last Admin: 07/24/17 08:25 Dose: 25 mg Thiamine HCl (Vitamin B1 Tab) 100 mg PO DAILY [facility] Last Admin: 07/24/17 08:25 Dose: 100 mg - Labs Labs: 07/24/17 04:20 07/24/17 04:20 PT 15.3 Seconds (9.8-13.1) H 07/18/17 05:30 INR 1.4 (0.9-1.2) H 07/18/17 05:30 APTT 34.2 Seconds (25.6-37.1) 07/18/17 05:30 - Constitutional Appears: No Acute Distress - Head Exam Head Exam: NORMAL INSPECTION - Neurological Exam Neurological Exam: Alert, Awake, Oriented x3 Neuro motor strength exam: Left Upper Extremity: 3, Right Upper Extremity: 3, Left Lower Extremity: 3, Right Lower Extremity: 3 Additional comments: Neurological improved from previous examination. Assessment and Plan (1) Altered mental status Assessment & Plan: Case discussed with Dr. Nicholas, continue all current medical, physical, and occupational therapies. Treat any abnormality in his electrolytes. Status: Acute
--- NOTE | 2017-07-24 09:40 | RAD ---
HISTORY: chest tubes COMPARISON: 07/23/2017 FINDINGS: LUNGS: Opacity at right base, grossly unchanged. PLEURA: Bilateral pleural effusion, left greater than right. Two right apical chest tubes, unchanged. No pneumothorax. CARDIOVASCULAR: Grossly normal heart size. Left subclavian central venous catheter. OSSEOUS STRUCTURES: No significant abnormalities. VISUALIZED UPPER ABDOMEN: Normal. OTHER FINDINGS: None. IMPRESSION: Bilateral pleural effusion, left greater than right. Right basilar opacity, possible pneumonia. Two right apical chest tubes, unchanged.
--- NOTE | 2017-07-24 11:06 | CP.CCUPN ---
<MaganaReginamelita - Last Filed: 07/24/17 11:01> CCU Subjective - Physician Review Subjective (Free Text): Patient tolerated regular soft diet. Sitting upright in bed with NC. He is thirst, however no water bedside. Will supply water and encourage PO water intake. Vital signs reviewed. HTN remains uncontrolled. Labs, imaging and I/Os reviewed. mild hypernatremia. Right Anterior/Posterior chest tubes with less drainage today. Anterior: 50cc, Posterior: 60cc. Tubes to be removed. Case was discussed with CT surgery and Primary teams. CCU Objective - Vital Signs / Intake & Output Vital Signs (Last 4 hours): Vital Signs Temp Pulse Resp BP Pulse Ox 07/24/17 10:00 82 20 154/68 H 99 07/24/17 08:59 169/69 H 07/24/17 08:58 92 H 169/69 H 07/24/17 08:26 81 156/70 H 07/24/17 08:24 81 156/70 H 07/24/17 08:00 98.0 F 93 H 16 156/70 H 89 L Intake and Output (Last 8hrs): Intake & Output 07/23/17 07/24/17 07/24/17 22:59 06:59 14:59 Intake Total 368 16 580 Output Total 810 1000 Balance -442 -984 580 Weight 69.536 kg Intake: IV 8 16 Intake, Piggyback 100 Oral 360 480 Output: Chest Tube Drainage 110 Right Anterior Chest 50 Right Posterior Chest 60 Urine 700 1000 Urethral (Salazar) 700 1000 - Physical Exam Head: Positive for: Atraumatic, Normocephalic Pupils: Positive for: PERRL Extroacular Muscles: Positive for: EOMI Conjunctiva: Negative for: Icteric Mouth: Positive for: Moist Mucous Membranes Nose (External): Negative for: Lesions Neck: Positive for: Normal Range of Motion (Supple ), Other (central line: left neck in place with dressing, clean and dry.) Respiratory/Chest: Positive for: Decreased Breath Sounds (left lower chest ), Rales (right lower chest), Other (on NC, two chest tubes right chest serosang output). Negative for: Respiratory Distress, Accessory Muscle Use, Wheezes, Tachypneic Cardiovascular: Positive for: Regular Rate and Rhythm, Normal S1, S2 Abdomen: Positive for: Other (soft). Negative for: Tenderness, Distention Upper Extremity: Positive for: Edema (bilateral 1+ pitting edema; right > left. improving) Lower Extremity: Negative for: Edema, CALF TENDERNESS Skin: Positive for: Warm, Dry Psychiatric: Positive for: Alert, Oriented x 3, Depressed Mood - Medications Active Medications: Active Medications Generic Name Dose Route Start Last Admin Trade Name Freq PRN Reason Stop Dose Admin Acetylcysteine 2 ml 07/22/17 20:00 07/24/17 07:49 Acetylcysteine 20% INH 2 ml RBID THOMAS Administration Albuterol/Ipratropium 3 ml 07/18/17 14:00 07/24/17 07:48 Duoneb 3 Mg/0.5 Mg (3 Ml) Ud INH 3 ml RQ6 [facility]OM[facility] Administration Amlodipine Besylate 5 mg 07/20/17 08:45 07/24/17 08:26 Norvasc PO 5 mg Q12H [facility] Administration Aspirin 81 mg 07/14/17 09:00 07/18/17 09:23 Ecotrin PO Not Given DAILY THOMAS Bacitracin 1 applic 07/11/17 09:00 07/23/17 08:59 Bacitracin Oint TOP 1 applic DAILY [facility] Administration Calcium Acetate 2,001 mg 07/05/17 08:30 07/14/17 12:26 Phoslo PO 2,001 mg 0830,1200,1830 [facility] Administration Dextrose 0 ml 06/22/17 22:36 Dextrose 50% Inj IV STAT PRN Hypoglycemia Protocol Protocol Dextrose 0 gm 06/22/17 22:36 Glutose 15 PO ONCE PRN Hypoglycemia Protocol Protocol Dextrose 50 ml 07/14/17 14:52 Dextrose 50% Inj IVP Q1H PRN Hypoglycemia Diltiazem HCl 120 mg 07/22/17 09:00 07/23/17 08:18 Cardizem Cd PO 120 mg DAILY [facility] Administration Epoetin Roel 14,000 unit 07/07/17 09:00 07/23/17 11:18 Procrit SC 14,000 unit MWF [facility] Administration Fluconazole 200 mg 07/12/17 09:00 07/24/17 08:25 Diflucan PO 200 mg DAILY [facility] Administration Protocol Furosemide 40 mg 07/21/17 09:00 07/24/17 08:59 Lasix IVP 40 mg BID [facility] Administration Glucagon 0 mg 06/22/17 22:36 Glucagen Diagnostic Kit IM STAT PRN Hypoglycemia Protocol Protocol Heparin Sodium (Porcine) 5,000 units 07/17/17 21:00 07/24/17 08:27 Heparin SC 5,000 units Q12 [facility] Administration Protocol Hydralazine HCl 50 mg 07/19/17 13:24 07/24/17 08:24 Apresoline PO 50 mg Q8 [facility] Administration Levetiracetam 500 mg/ Sodium 105 mls @ 210 mls/hr 07/04/17 21:00 07/24/17 08: 26 Chloride IVPB 210 mls/hr Q12 [facility] Administration Insulin Human Lispro 0 units 07/12/17 09:45 07/24/17 04:39 Humalog SC Not Given Q6H [facility] Protocol Levothyroxine Sodium 50 mcg 07/05/17 06:30 07/24/17 06:10 Synthroid PO 50 mcg DAILY@0630 [facility] Administration Lisinopril 40 mg 07/19/17 12:45 07/24/17 08:58 Zestril PO 40 mg DAILY [facility] Administration Oxycodone/Acetaminophen 1 tab 07/22/17 13:00 07/24/17 05:41 Percocet 5/325 Mg Tab PO 07/25/17 13:01 Not Given Q4 [facility] Sodium Bicarbonate 1,300 mg 06/30/17 17:00 07/02/17 16:23 Sodium Bicarbonate Tab PO 1,300 mg Q8 [facility] Administration Spironolactone 25 mg 07/22/17 09:00 07/24/17 08:25 Aldactone PO 25 mg BID [facility] Administration Thiamine HCl 100 mg 07/15/17 09:00 07/24/17 08:25 Vitamin B1 Tab PO 100 mg DAILY [facility] Administration - Patient Studies Lab Studies: Microbiology Studies 07/08/17 09:24 Mycobacterial Culture - Preliminary Other: Please Indicate 07/08/17 06:15 Mycobacterial Culture - Preliminary Other: Please Indicate Lab Studies 07/24/17 07/24/17 07/24/17 Range/Units 04:39 04:20 04:20 WBC 7.6 (4.8-10.8) K/uL RBC 3.30 L (4.40-5.90) Mil/uL Hgb 9.7 L (12.0-18.0) g/dL Hct 30.8 L (35.0-51.0) % MCV 93.3 (80.0-94.0) fl MCH 29.5 (27.0-31.0) pg MCHC 31.7 L (33.0-37.0) g/dL RDW 19.5 H (11.5-14.5) % Plt Count 281 (130-400) K/uL Sodium 151 H (132-148) mmol/l Potassium 3.8 (3.6-5.0) MMOL/L Chloride 117 H (98-107) mmol/L Carbon Dioxide 24 (22-30) mmol/L Anion Gap 14 (10-20) BUN 27 H (9-20) mg/dl Creatinine 2.3 H (0.8-1.5) mg/dl Est GFR ( Amer) 35 Est GFR (Non-Af Amer) 29 POC Glucose (mg/dL) 99 (65-110) mg/dL Random Glucose 103 (75-110) mg/dL Calcium 8.5 (8.4-10.2) mg/dL 07/23/17 07/23/17 07/23/17 Range/Units 21:36 17:04 11:21 WBC (4.8-10.8) K/uL RBC (4.40-5.90) Mil/uL Hgb (12.0-18.0) g/dL Hct (35.0-51.0) % MCV (80.0-94.0) fl MCH (27.0-31.0) pg MCHC (33.0-37.0) g/dL RDW (11.5-14.5) % Plt Count (130-400) K/uL Sodium (132-148) mmol/l Potassium (3.6-5.0) MMOL/L Chloride (98-107) mmol/L Carbon Dioxide (22-30) mmol/L Anion Gap (10-20) BUN (9-20) mg/dl Creatinine (0.8-1.5) mg/dl Est GFR ( Amer) Est GFR (Non-Af Amer) POC Glucose (mg/dL) 121 H 169 H 223 H (65-110) mg/dL Random Glucose (75-110) mg/dL Calcium (8.4-10.2) mg/dL Laboratory Results - last 24 hr 07/23/17 07/23/1707/23/18 11:21 17:04 21:36 WBC RBC Hgb Hct MCV MCH MCHC RDW Plt Count Sodium Potassium Chloride Carbon Dioxide Anion Gap BUN Creatinine Est GFR ( Amer) Est GFR (Non-Af Amer) POC Glucose (mg/dL) 223 H 169 H 121 H Random Glucose Calcium 07/24/17 07/24/17 07/24/17 04:20 04:20 04:39 WBC 7.6 RBC 3.30 L Hgb 9.7 L Hct 30.8 L MCV 93.3 MCH 29.5 MCHC 31.7 L RDW 19.5 H Plt Count 281 Sodium 151 H Potassium 3.8 Chloride 117 H Carbon Dioxide 24 Anion Gap 14 BUN 27 H Creatinine 2.3 H Est GFR ( Amer) 35 Est GFR (Non-Af Amer) 29 POC Glucose (mg/dL) 99 Random Glucose 103 Calcium 8.5 Fingerstick Blood Sugar Results: 99 Critical Care Progress Note - Nutrition Nutrition: Nutrition Category Date Time Status Regular Diet [DIET] Diets 07/23/17 Lunch Active Assessment/Plan - Assessment and Plan (Free Text) Assessment: 66 M with recurrent pleural effusions, HAP, CKD, DM nephropathy with nephrotic syndrome, HTN, Anemia. Clinically he is improving. Effusions have improved, Continues to require O2 via NC. Still has 2 chest tubes in right chest, output decreased today, to be removed.. PT/OT to help with mobilization. Neuro: ? seizures,. Patient awake and alert. On Keppra. Neurology following patient. Cardiovascular: HTN: On Norvasc, Cardizem, Lasix, hydralazine, Zestril. Remains uncontrolled. Mgmt as per nephro. Respiratory: B/L pleural effusions : Patient on NC, tolerating well. Chest PT Q4H. 2 chest tubes on right chest output is decreasing. Continues to require O2 via NC. Pulmonary is following. Surgery is following. Antibiotics D/C. CXR: bilateral pleural effusions L>R. GI: Regular diet-soft. Tolerating well. Advance as tolerated. Renal/: CKD with nephrotic syndrome: Nephrology is following. : On Hydralazine /Lisinopril, Lasix and Cardizem Endocrine: DM/ Hypothyroidism: on synthroid. Management as per endocrine. 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 <Ervin Mata - Last Filed: 07/24/17 12:18> CCU Subjective - Physician Review Subjective (Free Text): Attestation: Patient seen and examined at the bedside with Resident Dr. Tita Magana; and I agree with her outline of plans and management documented above as discussed on AM rounds reflecting my review of all applicable clinical data, and participation in the care of the patient throughout the day in ICU; July 24, 2017.
[2017-07-24] MEDS: diltiaZEM 120 mg/24 Hours CD Cap PO SCH (11:30)
[2017-07-24] MEDS: Bacitracin OINT 15GM TOP SCH (11:30)
[2017-07-24] MEDS ORDERED: diltiaZEM 120 mg/24 Hours CD Cap PO ONE ×2 (12:56→19:00)
--- NOTE | 2017-07-24 23:31 | CP.PCM.PN ---
Subjective - Date & Time of Evaluation Date of Evaluation: 07/24/17 Time of Evaluation: 19:00 - Subjective Subjective: Patient still with pain at site of R chest tube; otherwise tolerating diet; apparently not drinking much water; Objective - Vital Signs/Intake and Output Vital Signs (last 24 hours): Temp Pulse Resp BP Pulse Ox 98.4 F 88 23 166/70 H 93 L 07/24/17 16:00 07/24/17 20:10 07/24/17 18:00 07/24/17 20:10 07/24/17 18:00 Intake and Output: 07/24/17 07/25/17 18:59 06:59 Intake Total 1425 Output Total 1700 Balance -275 - Medications Medications: Current Medications Acetylcysteine (Acetylcysteine 20%) 2 ml INH RBID [facility] Last Admin: 07/24/17 19:14 Dose: 2 ml Albuterol/Ipratropium (Duoneb 3 Mg/0.5 Mg (3 Ml) Ud) 3 ml INH RQ6 [facility] Last Admin: 07/24/17 19:14 Dose: 3 ml Amlodipine Besylate (Norvasc) 5 mg PO Q12H [facility] Last Admin: 07/24/17 20:10 Dose: 5 mg Aspirin (Ecotrin) 81 mg PO DAILY [facility] Last Admin: 07/18/17 09:23 Dose: Not Given Bacitracin (Bacitracin Oint) 1 applic TOP DAILY [facility] Last Admin: 07/24/17 11:30 Dose: 1 applic Calcium Acetate (Phoslo) 2,001 mg PO 0830,1200,1830 [facility] Last Admin: 07/14/17 12:26 Dose: 2,001 mg Dextrose (Dextrose 50% Inj) 0 ml IV STAT PRN; Protocol PRN Reason: Hypoglycemia Protocol Dextrose (Glutose 15) 0 gm PO ONCE PRN; Protocol PRN Reason: Hypoglycemia Protocol Dextrose (Dextrose 50% Inj) 50 ml IVP Q1H PRN PRN Reason: Hypoglycemia Diltiazem HCl (Cardizem Cd) 240 mg PO DAILY [facility] Epoetin Roel (Procrit) 14,000 unit SC MWF [facility] Last Admin: 07/23/17 11:18 Dose: 14,000 unit Fluconazole (Diflucan) 200 mg PO DAILY [facility] PRN Reason: Protocol Last Admin: 07/24/17 08:25 Dose: 200 mg Furosemide (Lasix) 40 mg IVP BID [facility] Last Admin: 07/24/17 16:39 Dose: 40 mg Glucagon (Glucagen Diagnostic Kit) 0 mg IM STAT PRN; Protocol PRN Reason: Hypoglycemia Protocol Heparin Sodium (Porcine) (Heparin) 5,000 units SC Q12 [facility] PRN Reason: Protocol Last Admin: 07/24/17 20:08 Dose: 5,000 units Hydralazine HCl (Apresoline) 50 mg PO Q8 [facility] Last Admin: 07/24/17 16:38 Dose: 50 mg Levetiracetam 500 mg/ Sodium (Chloride) 105 mls @ 210 mls/hr IVPB Q12 [facility] Last Admin: 07/24/17 20:09 Dose: 210 mls/hr Dextrose (Dextrose 5% In Water 1000 Ml) 1,000 mls @ 100 mls/hr IV .Q10H [facility] Stop: 07/25/17 18:48 Insulin Human Lispro (Humalog) 0 units SC Q6H [facility] PRN Reason: Protocol Last Admin: 07/24/17 16:45 Dose: Not Given Levothyroxine Sodium (Synthroid) 50 mcg PO DAILY@0630 [facility] Last Admin: 07/24/17 06:10 Dose: 50 mcg Lisinopril (Zestril) 40 mg PO DAILY [facility] Last Admin: 07/24/17 08:58 Dose: 40 mg Oxycodone/Acetaminophen (Percocet 5/325 Mg Tab) 1 tab PO Q4 [facility] Stop: 07/25/17 13:01 Last Admin: 07/24/17 20:13 Dose: 1 tab Sodium Bicarbonate (Sodium Bicarbonate Tab) 1,300 mg PO Q8 [facility] Last Admin: 07/02/17 16:23 Dose: 1,300 mg Spironolactone (Aldactone) 25 mg PO BID [facility] Last Admin: 07/24/17 16:38 Dose: 25 mg Thiamine HCl (Vitamin B1 Tab) 100 mg PO DAILY [facility] Last Admin: 07/24/17 08:25 Dose: 100 mg - Labs Labs: 07/24/17 04:20 07/24/17 04:20 PT 15.3 Seconds (9.8-13.1) H 07/18/17 05:30 INR 1.4 (0.9-1.2) H 07/18/17 05:30 APTT 34.2 Seconds (25.6-37.1) 07/18/17 05:30 - Constitutional Appears: Non-toxic, No Acute Distress - Eye Exam Eye Exam: absent: Scleral icterus - ENT Exam ENT Exam: Mucous Membranes Moist - Respiratory Exam Respiratory Exam: absent: Respiratory Distress Additional comments: markedly decreased sounds on L again; - Cardiovascular Exam Cardiovascular Exam: RRR, +S1, +S2 - GI/Abdominal Exam GI & Abdominal Exam: Soft. absent: Distended, Tenderness - Extremities Exam Additional comments: marked edema of dependent areas and b/l upper ext, improved; - Neurological Exam Neurological Exam: Alert, Awake - Psychiatric Exam Psychiatric exam: absent: Agitated - Skin Skin Exam: Warm. absent: Cyanosis Assessment and Plan (1) Acute renal failure Assessment & Plan: ATN resolving; new increase in serum creatinine likely due to hemodynamic cause in the setting of aggressive KEVIN blockade and diuretics; otherwise stable K, monitor; Status: Acute (2) Nephrotic syndrome Assessment & Plan: Attempting to maximize KEVIN blockade and increase dose of cardizem for added anti -proteinuric effect; adding ARB to ARON inhibitor may also be helpful but concern for significant hyperkalemia; in general, not recommended but considering patient's clinical course, we will re-assess this option once patient is on his regular diet;; Status: Chronic (3) Pleural effusion Assessment & Plan: Bilateral effusions; f/u with thoracic surgery for possible pleurodesis; Status: Chronic (4) Hypertensive CKD (chronic kidney disease) Assessment & Plan: BP rebounded today; will increase cardizem CD to 240 mg daily; continue rest of meds including diuretics; Status: Acute (5) Chronic kidney disease, stage 3 (moderate) Status: Chronic (6) Hypothermia Status: Acute (7) Altered mental status Status: Acute (8) SIRS (systemic inflammatory response syndrome) Status: Acute (9) Anemia Assessment & Plan: Hgb stable, just below goal, continue EPO 14,000 u qMWF; Status: Chronic (10) Monoclonal gammopathy Status: Chronic (11) Hypernatremia Assessment & Plan: Worsened by diuretics; patient repeatedly encouraged to drink more water but not doing so; starting D5W at 100 cc/hr to replenish free water deficit; Status: Acute
[2017-07-25] MEDS: Oxycodone/Acetaminophen 5/325 mg Tab PO SCH ×4 (00:30→09:34)
[2017-07-25] MEDS: Albuterol-Ipratrop 3 mg / 0.5 (3 ml) UD INH SCH ×4 (00:59→19:10)
--- NOTE | 2017-07-25 01:21 | PN ---
DATE: ENDOCRINOLOGY FOLLOWUP NOTE LOCATION: ICU, room 433. SUBJECTIVE: This is a 66-year-old male with recent admission for acute respiratory failure, now being followed closely for metabolic management. He also has underlying pleural effusion with ongoing chest tubes in both ____ and posterior chest leone as noted with serosanguineous drainage, being followed closely in the ICU for hemodynamic monitoring. His glycemic levels are much improved at this time and his glucose levels have ranged from 99 to 121 and 248 mg/dL. His latest chemistry showed a BUN of 27, sodium 151, potassium 3.8, chloride 117, CO2 24, glucose 103 and creatinine 2.3. He also remains clinically and biochemically euthyroid at this time with the latest T4 of 7.64 and a TSH of 3.31 and a free T4 of 1.43. So at this time, we will continue the low-dose correction scale using Humalog insulin as given every 6 hours as ordered. We will continue the levothyroxine given as 50 mcg once daily as ordered. We will follow and advise accordingly. Bettina Mann MD
[2017-07-25] MEDS: Insulin Lispro (humaLOG) 100 Units/ml Inj SC SCH ×4 (04:00→21:33)
[2017-07-25] MEDS: Sodium Chloride 3% for Inhalation 4 ML VIAL.NEB IH SCH (04:04)
[2017-07-25] MEDS: Levothyroxine 50 MCG TAB PO SCH (06:25)
[2017-07-25 06:46] LABS: HEMOGLOBIN 10.1 g/dL (12.0-18.0); MEAN CELL VOLUME 93.2 fl (80.0-94.0); MEAN CORPUSCULAR HEMOGLOBIN 29.1 pg (27.0-31.0); MEAN CORPUSCULAR HGB CONC 31.3 g/dL (33.0-37.0); RBC 3.48 Mil/uL (4.40-5.90); RED CELL DISTRIBUTION WIDTH 19.5 % (11.5-14.5); WHITE BLOOD COUNT 7.7 K/uL (4.8-10.8)
[2017-07-25 07:02] LABS: CALCIUM 8.4 mg/dL (8.4-10.2)
--- NOTE | 2017-07-25 07:11 | CP.PCM.PN ---
Subjective - Date & Time of Evaluation Date of Evaluation: 07/25/17 Time of Evaluation: 06:50 - Subjective Subjective: Vital Signs: 36.7- 68- 140/64- 15- 94% (4LNC) Chest Tube Rt Post: d/c'd after pt seen Chest Tube Rt Ant: d/c'd after pt seen LEFT subclavian: patent, non-erythematous Salazar Catheter: Improved, yellow urine 66M resting, minimal pain at RIGHT chest wall. Otherwise, denies SOB. Objective - Vital Signs/Intake and Output Vital Signs (last 24 hours): Temp Pulse Resp BP Pulse Ox 36.8 C 68 14 140/64 95 07/25/17 06:00 07/25/17 06:00 07/25/17 06:00 07/25/17 06:00 07/25/17 06:00 Intake and Output: 07/25/17 07/25/17 06:59 18:59 Intake Total 1220 Output Total 1160 Balance 60 - Medications Medications: Current Medications Acetylcysteine (Acetylcysteine 20%) 2 ml INH RBID [facility] Last Admin: 07/24/17 19:14 Dose: 2 ml Albuterol/Ipratropium (Duoneb 3 Mg/0.5 Mg (3 Ml) Ud) 3 ml INH RQ6 [facility] Last Admin: 07/25/17 00:59 Dose: 3 ml Amlodipine Besylate (Norvasc) 5 mg PO Q12H [facility] Last Admin: 07/24/17 20:10 Dose: 5 mg Aspirin (Ecotrin) 81 mg PO DAILY [facility] Last Admin: 07/18/17 09:23 Dose: Not Given Bacitracin (Bacitracin Oint) 1 applic TOP DAILY [facility] Last Admin: 07/24/17 11:30 Dose: 1 applic Calcium Acetate (Phoslo) 2,001 mg PO 0830,1200,1830 [facility] Last Admin: 07/14/17 12:26 Dose: 2,001 mg Dextrose (Dextrose 50% Inj) 0 ml IV STAT PRN; Protocol PRN Reason: Hypoglycemia Protocol Dextrose (Glutose 15) 0 gm PO ONCE PRN; Protocol PRN Reason: Hypoglycemia Protocol Dextrose (Dextrose 50% Inj) 50 ml IVP Q1H PRN PRN Reason: Hypoglycemia Diltiazem HCl (Cardizem Cd) 240 mg PO DAILY [facility] Epoetin Roel (Procrit) 14,000 unit SC MWF [facility] Last Admin: 07/23/17 11:18 Dose: 14,000 unit Fluconazole (Diflucan) 200 mg PO DAILY [facility] PRN Reason: Protocol Last Admin: 07/24/17 08:25 Dose: 200 mg Furosemide (Lasix) 40 mg IVP BID [facility] Last Admin: 07/24/17 16:39 Dose: 40 mg Glucagon (Glucagen Diagnostic Kit) 0 mg IM STAT PRN; Protocol PRN Reason: Hypoglycemia Protocol Heparin Sodium (Porcine) (Heparin) 5,000 units SC Q12 [facility] PRN Reason: Protocol Last Admin: 07/24/17 20:08 Dose: 5,000 units Hydralazine HCl (Apresoline) 50 mg PO Q8 [facility] Last Admin: 07/25/17 00:25 Dose: 50 mg Levetiracetam 500 mg/ Sodium (Chloride) 105 mls @ 210 mls/hr IVPB Q12 [facility] Last Admin: 07/24/17 20:09 Dose: 210 mls/hr Dextrose (Dextrose 5% In Water 1000 Ml) 1,000 mls @ 100 mls/hr IV .Q10H [facility] Stop: 07/25/17 18:48 Last Admin: 07/24/17 19:30 Dose: 100 mls/hr Insulin Human Lispro (Humalog) 0 units SC Q6H [facility] PRN Reason: Protocol Last Admin: 07/25/17 04:00 Dose: Not Given Levothyroxine Sodium (Synthroid) 50 mcg PO DAILY@0630 [facility] Last Admin: 07/25/17 06:25 Dose: 50 mcg Lisinopril (Zestril) 40 mg PO DAILY [facility] Last Admin: 07/24/17 08:58 Dose: 40 mg Oxycodone/Acetaminophen (Percocet 5/325 Mg Tab) 1 tab PO Q4 [facility] Stop: 07/25/17 13:01 Last Admin: 07/25/17 05:00 Dose: Not Given Sodium Bicarbonate (Sodium Bicarbonate Tab) 1,300 mg PO Q8 [facility] Last Admin: 07/02/17 16:23 Dose: 1,300 mg Spironolactone (Aldactone) 25 mg PO BID [facility] Last Admin: 07/24/17 16:38 Dose: 25 mg Thiamine HCl (Vitamin B1 Tab) 100 mg PO DAILY [facility] Last Admin: 07/24/17 08:25 Dose: 100 mg - Labs Labs: 07/25/17 06:30 07/25/17 06:30 PT 15.3 Seconds (9.8-13.1) H 07/18/17 05:30 INR 1.4 (0.9-1.2) H 07/18/17 05:30 APTT 34.2 Seconds (25.6-37.1) 07/18/17 05:30 - Constitutional Appears: Non-toxic, No Acute Distress, Older Than Stated Age, Chronically Ill - Head Exam Head Exam: ATRAUMATIC, NORMAL INSPECTION - Eye Exam Eye Exam: EOMI, Normal appearance - ENT Exam ENT Exam: Mucous Membranes Dry, Normal Exam - Neck Exam Neck Exam: Normal Inspection - Respiratory Exam Respiratory Exam: Decreased Breath Sounds (throughout LEFT lung, minimal ), NORMAL BREATHING PATTERN. absent: Wheezes - Cardiovascular Exam Cardiovascular Exam: REGULAR RHYTHM, +S1, +S2 - GI/Abdominal Exam GI & Abdominal Exam: Soft, Hypoactive Bowel Sounds. absent: Tenderness - Extremities Exam Extremities Exam: Full ROM, Normal Capillary Refill. absent: Joint Swelling, Pedal Edema - Neurological Exam Neurological Exam: Alert, Awake - Psychiatric Exam Psychiatric exam: Normal Affect - Skin Skin Exam: Dry, Warm Assessment and Plan - Assessment and Plan (Free Text) Assessment: 66M currently stable. Goals remain to continue with strengthening, nutrition, and pleural effusion control. Plan: 1) Pulmonary: Acute respiratory failure secondary to recurrent pleural effusions caused by nephrotic syndrome. Doing well on 4LNC, chest tubes discontinued today. CXR showing post-obstructive atelectasis again on the LEFT likely complicated by mod-large LEFT loculated effusion. - 4L nasal cannula - Chest PT Q4H - Suctioning to induce coughing and removal of secretions Q4H - c/w Pulmonary recommendations for mucomyst, bronchodilator. - Would consider Telemetry if able to get [facility] "Pulmonary/Respiratory function bed" to assist in pulmonary toilet CT Surgery Consult (Dr Gannon) appreciated: Chest tubes discontinued, repeat CXR at 0900, IR for thoracentesis PRN recollection. No intervention for left loculated effusion at this time. Pulmonary Consult (Dr Raymond)appreciated: Chest PT, bronchodilators, mucomyst, c /w current management ID Consult (Dr Dolan) appreciated: d/c Cefepime, culture if febrile, c/w Fluconazole PO Nephrology Consult (Dr Luz) appreciated: c/w medically controlling nephrotic syndrome with ACEI/CCB, Aldactone and Lasix started (monitor for hyperkalemia) 2) Cardiovascular: preCHF: Echo 05/31/17 normal EF 60-65% - HTN due to CKD: f/u Nephrology recommendations, would consider potassium levels will remain balanced if lasix is continued with ACEI/ARBs/and spironolactone. - Aspirin held by Neurology at this time. 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 NO EVIDENCE OF MONOCLONAL LIGHT OR HEAVY CHAIN- RELATED RENAL DISEASE. Renal duplex: no renal vein thrombosis - CKD stage 4: f/u Nephrology recs, monitor BUN/Cr - Anemia: improving, EPO MWF 4) Endocrinology: Stable, improving, f/u endocrinology recommendations, last TSH - 3.31, last Prolactin 27.1 - Prolactinemia: improving, monitor for now (last 27.1) - Hypothyroid: TSH stabilized, c/w Synthroid (last TSH 3.31) - DMII: SSI Lispro, Accu-checks, Hypoglycemic Bundle 5) Infectious Disease: Improving, no clinical indication of infection at this time - HAP: Prolactin: 0.21, no anitbiotics at this time, culture if febrile - c/w Fluconazole for suspected fungal infection Infectious Disease Consult (Dr Dolan) appreciated: c/w Fluconazole at this time 6) Neurology: Stable - c/w Keppra- changed from IV to PO today Neurology Consult (Dr Nicholas) appreciated: c/w Roseann, ASA being held 7) Skin: Overall doing very well thanks to the great care from nursing - Skin tear: healing site on LEFT dorsum of hand, healing on lower back x2, - Sacral-Stage I: healing - c/w heal boots - c/w pressure off-loading 8) Deconditioning - PT/OT, all activity as tolerated - Regular diet - Consult Dietary 9) DVT prophylaxis - Heparin 5,000U, SC, Q12H
[2017-07-25] MEDS ORDERED: HYDROmorphone 0.5 mg/0.5 ml ISec IVP STA ×2 (07:21→07:34)
[2017-07-25] MEDS ORDERED: HYDROmorphone 0.5 mg/0.5 ml ISec ONE (07:23)
--- NOTE | 2017-07-25 07:38 | CP.PCM.PN ---
Subjective - Date & Time of Evaluation Date of Evaluation: 07/25/17 Time of Evaluation: 07:35 - Subjective Subjective: CT Surgery: Dr Gannon Pt S&E. NAEO. Has pain at site of chest tube insertion x 2. There has been minimal output from tube. There is no air leak. Pt has been more alert and OOB. Objective - Vital Signs/Intake and Output Vital Signs (last 24 hours): Temp Pulse Resp BP Pulse Ox 98.2 F 68 14 140/64 95 07/25/17 06:00 07/25/17 06:00 07/25/17 06:00 07/25/17 06:00 07/25/17 06:00 Intake and Output: 07/25/17 07/25/17 06:59 18:59 Intake Total 1220 Output Total 1160 Balance 60 - Medications Medications: Current Medications Acetylcysteine (Acetylcysteine 20%) 2 ml INH RBID [facility] Last Admin: 07/24/17 19:14 Dose: 2 ml Albuterol/Ipratropium (Duoneb 3 Mg/0.5 Mg (3 Ml) Ud) 3 ml INH RQ6 [facility] Last Admin: 07/25/17 00:59 Dose: 3 ml Amlodipine Besylate (Norvasc) 5 mg PO Q12H [facility] Last Admin: 07/24/17 20:10 Dose: 5 mg Aspirin (Ecotrin) 81 mg PO DAILY [facility] Last Admin: 07/18/17 09:23 Dose: Not Given Bacitracin (Bacitracin Oint) 1 applic TOP DAILY [facility] Last Admin: 07/24/17 11:30 Dose: 1 applic Calcium Acetate (Phoslo) 2,001 mg PO 0830,1200,1830 [facility] Last Admin: 07/14/17 12:26 Dose: 2,001 mg Dextrose (Dextrose 50% Inj) 0 ml IV STAT PRN; Protocol PRN Reason: Hypoglycemia Protocol Dextrose (Glutose 15) 0 gm PO ONCE PRN; Protocol PRN Reason: Hypoglycemia Protocol Dextrose (Dextrose 50% Inj) 50 ml IVP Q1H PRN PRN Reason: Hypoglycemia Diltiazem HCl (Cardizem Cd) 240 mg PO DAILY [facility] Epoetin Roel (Procrit) 14,000 unit SC MWF [facility] Last Admin: 07/23/17 11:18 Dose: 14,000 unit Fluconazole (Diflucan) 200 mg PO DAILY [facility] PRN Reason: Protocol Last Admin: 07/24/17 08:25 Dose: 200 mg Furosemide (Lasix) 40 mg IVP BID [facility] Last Admin: 07/24/17 16:39 Dose: 40 mg Glucagon (Glucagen Diagnostic Kit) 0 mg IM STAT PRN; Protocol PRN Reason: Hypoglycemia Protocol Heparin Sodium (Porcine) (Heparin) 5,000 units SC Q12 [facility] PRN Reason: Protocol Last Admin: 07/24/17 20:08 Dose: 5,000 units Hydralazine HCl (Apresoline) 50 mg PO Q8 [facility] Last Admin: 07/25/17 00:25 Dose: 50 mg Levetiracetam 500 mg/ Sodium (Chloride) 105 mls @ 210 mls/hr IVPB Q12 [facility] Last Admin: 07/24/17 20:09 Dose: 210 mls/hr Dextrose (Dextrose 5% In Water 1000 Ml) 1,000 mls @ 100 mls/hr IV .Q10H [facility] Stop: 07/25/17 18:48 Last Admin: 07/24/17 19:30 Dose: 100 mls/hr Insulin Human Lispro (Humalog) 0 units SC Q6H [facility] PRN Reason: Protocol Last Admin: 07/25/17 04:00 Dose: Not Given Levothyroxine Sodium (Synthroid) 50 mcg PO DAILY@0630 [facility] Last Admin: 07/25/17 06:25 Dose: 50 mcg Lisinopril (Zestril) 40 mg PO DAILY [facility] Last Admin: 07/24/17 08:58 Dose: 40 mg Oxycodone/Acetaminophen (Percocet 5/325 Mg Tab) 1 tab PO Q4 [facility] Stop: 07/25/17 13:01 Last Admin: 07/25/17 05:00 Dose: Not Given Sodium Bicarbonate (Sodium Bicarbonate Tab) 1,300 mg PO Q8 [facility] Last Admin: 07/02/17 16:23 Dose: 1,300 mg Spironolactone (Aldactone) 25 mg PO BID [facility] Last Admin: 07/24/17 16:38 Dose: 25 mg Thiamine HCl (Vitamin B1 Tab) 100 mg PO DAILY [facility] Last Admin: 07/24/17 08:25 Dose: 100 mg - Labs Labs: 07/25/17 06:30 07/25/17 06:30 PT 15.3 Seconds (9.8-13.1) H 07/18/17 05:30 INR 1.4 (0.9-1.2) H 07/18/17 05:30 APTT 34.2 Seconds (25.6-37.1) 07/18/17 05:30 - Constitutional Appears: No Acute Distress - Eye Exam Eye Exam: Normal appearance - ENT Exam ENT Exam: Mucous Membranes Dry - Respiratory Exam Respiratory Exam: NORMAL BREATHING PATTERN. absent: Accessory Muscle Use, Respiratory Distress - Cardiovascular Exam Cardiovascular Exam: REGULAR RHYTHM. absent: Tachycardia - GI/Abdominal Exam GI & Abdominal Exam: Soft. absent: Distended - Neurological Exam Neurological Exam: Alert, Awake. absent: Oriented x3 - Psychiatric Exam Psychiatric exam: Normal Affect - Skin Skin Exam: Normal Color, Warm Additional comments: chest tube incision sites c/d/i Assessment and Plan - Assessment and Plan (Free Text) Assessment: 66M with nephrotic syndrome with right chest tubes x 2 on water seal Plan: chest tubes D/C at bedside CXR ordered for 9 AM further draining of effusion should be done by IR via thoracentesis please re-consult CT surgery if further intervention is needed will d/w Dr Jagdeep Wagner, PGY3
[2017-07-25] MEDS: Acetylcysteine 20% Inhal Soln (4ml) INH SCH ×2 (07:44→19:09)
[2017-07-25] MEDS: diltiaZEM 240 mg/24 Hours CD Cap PO SCH (09:17)
[2017-07-25] MEDS: Bacitracin OINT 15GM TOP SCH (09:17)
[2017-07-25] MEDS ORDERED: Oxycodone/Acetaminophen 5/325 mg Tab PO PRN (09:46)
--- NOTE | 2017-07-25 09:48 | CP.PCM.PN ---
Subjective - Date & Time of Evaluation Date of Evaluation: 07/25/17 Time of Evaluation: 09:46 - Subjective Subjective: Mr. Durand was seen and examined at the bedside in ICU. He is alert, oriented and easily gets irritated. He does answer few questions and follow commands. His bilateral chest tubes were discontinued today. He is not in any kind of distress. He has the bilateral SCD.There was no untoward events overnight. Objective - Vital Signs/Intake and Output Vital Signs (last 24 hours): Temp Pulse Resp BP Pulse Ox 97.6 F 69 13 153/73 H 97 07/25/17 08:00 07/25/17 08:00 07/25/17 08:00 07/25/17 09:21 07/25/17 08:00 Intake and Output: 07/25/17 07/25/17 06:59 18:59 Intake Total 1220 Output Total 1160 Balance 60 - Medications Medications: Current Medications Acetylcysteine (Acetylcysteine 20%) 2 ml INH RBID [facility] Last Admin: 07/25/17 07:44 Dose: 2 ml Albuterol/Ipratropium (Duoneb 3 Mg/0.5 Mg (3 Ml) Ud) 3 ml INH RQ6 [facility] Last Admin: 07/25/17 07:44 Dose: 3 ml Amlodipine Besylate (Norvasc) 5 mg PO Q12H [facility] Last Admin: 07/25/17 09:19 Dose: 5 mg Aspirin (Ecotrin) 81 mg PO DAILY [facility] Last Admin: 07/18/17 09:23 Dose: Not Given Bacitracin (Bacitracin Oint) 1 applic TOP DAILY [facility] Last Admin: 07/25/17 09:17 Dose: 1 applic Calcium Acetate (Phoslo) 2,001 mg PO 0830,1200,1830 [facility] Last Admin: 07/14/17 12:26 Dose: 2,001 mg Dextrose (Dextrose 50% Inj) 0 ml IV STAT PRN; Protocol PRN Reason: Hypoglycemia Protocol Dextrose (Glutose 15) 0 gm PO ONCE PRN; Protocol PRN Reason: Hypoglycemia Protocol Dextrose (Dextrose 50% Inj) 50 ml IVP Q1H PRN PRN Reason: Hypoglycemia Diltiazem HCl (Cardizem Cd) 240 mg PO DAILY [facility] Last Admin: 07/25/17 09:17 Dose: 240 mg Epoetin Roel (Procrit) 14,000 unit SC MWF [facility] Last Admin: 07/23/17 11:18 Dose: 14,000 unit Fluconazole (Diflucan) 200 mg PO DAILY [facility] PRN Reason: Protocol Last Admin: 07/25/17 09:17 Dose: 200 mg Furosemide (Lasix) 40 mg IVP BID [facility] Last Admin: 07/25/17 09:21 Dose: 40 mg Glucagon (Glucagen Diagnostic Kit) 0 mg IM STAT PRN; Protocol PRN Reason: Hypoglycemia Protocol Heparin Sodium (Porcine) (Heparin) 5,000 units SC Q12 [facility] PRN Reason: Protocol Last Admin: 07/24/17 20:08 Dose: 5,000 units Hydralazine HCl (Apresoline) 50 mg PO Q8 [facility] Last Admin: 07/25/17 09:16 Dose: 50 mg Dextrose (Dextrose 5% In Water 1000 Ml) 1,000 mls @ 100 mls/hr IV .Q10H [facility] Stop: 07/25/17 18:48 Last Admin: 07/25/17 07:39 Dose: 100 mls/hr Insulin Human Lispro (Humalog) 0 units SC Q6H [facility] PRN Reason: Protocol Last Admin: 07/25/17 04:00 Dose: Not Given Levetiracetam (Keppra) 500 mg PO Q12H [facility] Levothyroxine Sodium (Synthroid) 50 mcg PO DAILY@0630 [facility] Last Admin: 07/25/17 06:25 Dose: 50 mcg Lisinopril (Zestril) 40 mg PO DAILY [facility] Last Admin: 07/25/17 09:20 Dose: 40 mg Oxycodone/Acetaminophen (Percocet 5/325 Mg Tab) 1 tab PO Q4 [facility] Stop: 07/25/17 13:01 Last Admin: 07/25/17 09:34 Dose: Not Given Sodium Bicarbonate (Sodium Bicarbonate Tab) 1,300 mg PO Q8 [facility] Last Admin: 07/02/17 16:23 Dose: 1,300 mg Spironolactone (Aldactone) 25 mg PO BID [facility] Last Admin: 07/25/17 09:16 Dose: 25 mg Thiamine HCl (Vitamin B1 Tab) 100 mg PO DAILY [facility] Last Admin: 07/25/17 09:19 Dose: 100 mg - Labs Labs: 07/25/17 06:30 07/25/17 06:30 PT 15.3 Seconds (9.8-13.1) H 07/18/17 05:30 INR 1.4 (0.9-1.2) H 07/18/17 05:30 APTT 34.2 Seconds (25.6-37.1) 07/18/17 05:30 - Constitutional Appears: No Acute Distress - Head Exam Head Exam: NORMAL INSPECTION - Neurological Exam Neurological Exam: Alert, Awake Neuro motor strength exam: Left Upper Extremity: 5, Right Upper Extremity: 5, Left Lower Extremity: 3, Right Lower Extremity: 3 Additional comments: Neurological unchanged from previous examination. Assessment and Plan (1) Altered mental status Assessment & Plan: Case discussed with Dr. Nicholas, continue all current medical, physical, and occupational therapy. The patient mentation is improved , neurology is signing off from this case. Reconsult if mental status changes. Status: Acute
--- NOTE | 2017-07-25 10:22 | CP.CCUPN ---
<Regina Maganamelita - Last Filed: 07/25/17 10:20> CCU Subjective - Physician Review Subjective (Free Text): Patient doing well today. S/p removal of 2 right chest tubes. XR post CT pull revealed white out of left hemithorax. No PTX seen on right chest. Patient breathing comfortably on 4 L via NC, has mild pain right chest. Received pain medications. Upper extremity edema improving gradually, no longer pitting. Seen eating breakfast, tolerating regular soft diet. Encouraged participation in PT/OT. Needs assistance to chair, still very weak. CCU Objective - Vital Signs / Intake & Output Vital Signs (Last 4 hours): Vital Signs Temp Pulse Resp BP Pulse Ox 07/25/17 09:21 153/73 H 07/25/17 08:00 97.6 F 69 13 147/62 97 Intake and Output (Last 8hrs): Intake & Output 07/24/17 07/25/17 07/25/17 22:59 06:59 14:59 Intake Total 365 1220 Output Total 1700 1160 Balance -1335 60 Intake: IV 1100 Oral 365 120 Output: Chest Tube Drainage 0 10 Right Anterior Chest 0 10 Right Posterior Chest 0 0 Urine 1700 1150 Urethral (Salazar) 1700 1150 Stool 0 - Physical Exam Head: Positive for: Atraumatic, Normocephalic Pupils: Positive for: PERRL Extroacular Muscles: Positive for: EOMI Conjunctiva: Negative for: Icteric Mouth: Positive for: Moist Mucous Membranes Nose (External): Negative for: Lesions Neck: Positive for: Normal Range of Motion (Supple ), Other (central line: left neck in place with dressing, clean and dry.) Respiratory/Chest: Positive for: Clear to Auscultation (right lung, good air entry), Decreased Breath Sounds (entire left hemithorax). Negative for: Respiratory Distress, Accessory Muscle Use, Wheezes, Tachypneic Cardiovascular: Positive for: Regular Rate and Rhythm, Normal S1, S2. Negative for: Tachycardic, Bradycardic Abdomen: Negative for: Tenderness, Distention, Guarding Upper Extremity: Positive for: Edema (bilateral non-pitting edema; right > left. improving) Lower Extremity: Negative for: Edema, CALF TENDERNESS Neurological: Positive for: Other (speech improving, not at baseline) Skin: Positive for: Warm, Dry, Other (skin tear left hand healing well ) Psychiatric: Positive for: Alert, Oriented x 3 - Medications Active Medications: Active Medications Generic Name Dose Route Start Last Admin Trade Name Abbi PRN Reason Stop Dose Admin Acetylcysteine 2 ml 07/22/17 20:00 07/25/17 07:44 Acetylcysteine 20% INH 2 ml RBID [facility] Administration Albuterol/Ipratropium 3 ml 07/18/17 14:00 07/25/17 07:44 Duoneb 3 Mg/0.5 Mg (3 Ml) Ud INH 3 ml RQ6 [facility] Administration Amlodipine Besylate 5 mg 07/20/17 08:45 07/25/17 09:19 Norvasc PO 5 mg Q12H [facility] Administration Aspirin 81 mg 07/14/17 09:00 07/18/17 09:23 Ecotrin PO Not Given DAILY [facility] Bacitracin 1 applic 07/11/17 09:00 07/25/17 09:17 Bacitracin Oint TOP 1 applic DAILY [facility] Administration Calcium Acetate 2,001 mg 07/05/17 08:30 07/14/17 12:26 Phoslo PO 2,001 mg 0830,1200,1830 [facility] Administration Dextrose 0 ml 06/22/17 22:36 Dextrose 50% Inj IV STAT PRN Hypoglycemia Protocol Protocol Dextrose 0 gm 06/22/17 22:36 Glutose 15 PO ONCE PRN Hypoglycemia Protocol Protocol Dextrose 50 ml 07/14/17 14:52 Dextrose 50% Inj IVP Q1H PRN Hypoglycemia Diltiazem HCl 240 mg 07/25/17 09:00 07/25/17 09:17 Cardizem Cd PO 240 mg DAILY [facility] Administration Epoetin Roel 14,000 unit 07/07/17 09:00 07/23/17 11:18 Procrit SC 14,000 unit MWF [facility] Administration Fluconazole 200 mg 07/12/17 09:00 07/25/17 09:17 Diflucan PO 200 mg DAILY [facility] Administration Protocol Furosemide 40 mg 07/21/17 09:00 07/25/17 09:21 Lasix IVP 40 mg BID [facility] Administration Glucagon 0 mg 06/22/17 22:36 Glucagen Diagnostic Kit IM STAT PRN Hypoglycemia Protocol Protocol Heparin Sodium (Porcine) 5,000 units 07/17/17 21:00 07/24/17 20:08 Heparin SC 5,000 units Q12 [facility] Administration Protocol Hydralazine HCl 50 mg 07/19/17 13:24 07/25/17 09:16 Apresoline PO 50 mg Q8 [facility] Administration Dextrose 1,000 mls @ 100 mls/hr 07/24/17 19:00 07/25/17 07:39 Dextrose 5% In Water 1000 Ml IV 07/25/17 18:48 100 mls/hr .Q10H [facility] Administration Insulin Human Lispro 0 units 07/12/17 09:45 07/25/17 04:00 Humalog SC Not Given Q6H [facility] Protocol Levetiracetam 500 mg 07/25/17 09:00 Keppra PO Q12H [facility] Levothyroxine Sodium 50 mcg 07/05/17 06:30 07/25/17 06:25 Synthroid PO 50 mcg DAILY@0630 [facility] Administration Lisinopril 40 mg 07/19/17 12:45 07/25/17 09:20 Zestril PO 40 mg DAILY [facility] Administration Oxycodone/Acetaminophen 1 tab 07/25/17 09:46 Percocet 5/325 Mg Tab PO 07/25/17 13:01 Q4 PRN Pain, moderate (4-7) Sodium Bicarbonate 1,300 mg 06/30/17 17:00 07/02/17 16:23 Sodium Bicarbonate Tab PO 1,300 mg Q8 [facility] Administration Spironolactone 25 mg 07/22/17 09:00 07/25/17 09:16 Aldactone PO 25 mg BID [facility] Administration Thiamine HCl 100 mg 07/15/17 09:00 07/25/17 09:19 Vitamin B1 Tab PO 100 mg DAILY [facility] Administration - Patient Studies Lab Studies: Lab Studies 07/25/17 07/25/17 07/25/17 Range/Units 06:30 06:30 04:21 WBC 7.7 (4.8-10.8) K/uL RBC 3.48 L (4.40-5.90) Mil/uL Hgb 10.1 L (12.0-18.0) g/dL Hct 32.5 L (35.0-51.0) % MCV 93.2 (80.0-94.0) fl MCH 29.1 (27.0-31.0) pg MCHC 31.3 L (33.0-37.0) g/dL RDW 19.5 H (11.5-14.5) % Plt Count 277 (130-400) K/uL Sodium 145 (132-148) mmol/l Potassium 3.7 (3.6-5.0) MMOL/L Chloride 111 H (98-107) mmol/L Carbon Dioxide 23 (22-30) mmol/L Anion Gap 15 (10-20) BUN 26 H (9-20) mg/dl Creatinine 2.1 H (0.8-1.5) mg/dl Est GFR ( Amer) 38 Est GFR (Non-Af Amer) 32 POC Glucose (mg/dL) 172 H (65-110) mg/dL Random Glucose 145 H (75-110) mg/dL Calcium 8.4 (8.4-10.2) mg/dL 07/24/17 07/24/17 07/24/17 Range/Units 21:13 16:44 11:06 WBC (4.8-10.8) K/uL RBC (4.40-5.90) Mil/uL Hgb (12.0-18.0) g/dL Hct (35.0-51.0) % MCV (80.0-94.0) fl MCH (27.0-31.0) pg MCHC (33.0-37.0) g/dL RDW (11.5-14.5) % Plt Count (130-400) K/uL Sodium (132-148) mmol/l Potassium (3.6-5.0) MMOL/L Chloride (98-107) mmol/L Carbon Dioxide (22-30) mmol/L Anion Gap (10-20) BUN (9-20) mg/dl Creatinine (0.8-1.5) mg/dl Est GFR ( Amer) Est GFR (Non-Af Amer) POC Glucose (mg/dL) 146 H 153 H 248 H (65-110) mg/dL Random Glucose (75-110) mg/dL Calcium (8.4-10.2) mg/dL Laboratory Results - last 24 hr 07/24/17 07/24/17 07/24/17 11:06 16:44 21:13 WBC RBC Hgb Hct MCV MCH MCHC RDW Plt Count Sodium Potassium Chloride Carbon Dioxide Anion Gap BUN Creatinine Est GFR ( Amer) Est GFR (Non-Af Amer) POC Glucose (mg/dL) 248 H 153 H 146 H Random Glucose Calcium 07/25/17 07/25/17 07/25/17 04:21 06:30 06:30 WBC 7.7 RBC 3.48 L Hgb 10.1 L Hct 32.5 L MCV 93.2 MCH 29.1 MCHC 31.3 L RDW 19.5 H Plt Count 277 Sodium 145 Potassium 3.7 Chloride 111 H Carbon Dioxide 23 Anion Gap 15 BUN 26 H Creatinine 2.1 H Est GFR ( Amer) 38 Est GFR (Non-Af Amer) 32 POC Glucose (mg/dL) 172 H Random Glucose 145 H Calcium 8.4 Fingerstick Blood Sugar Results: 172 Critical Care Progress Note - Nutrition Nutrition: Nutrition Category Date Time Status Regular Diet [DIET] Diets 07/23/17 Lunch Active Assessment/Plan - Assessment and Plan (Free Text) Assessment: 66 M with recurrent pleural effusions, HAP, CKD, DM nephropathy with nephrotic syndrome, HTN, Anemia. Clinically he is improved. Chest PT q3 hours. Left hemithorax white out on CXR, likely 2' to mucus plug. He is aler and awake, tolerating diet. Both right sided chest tubes were removed this morning by surgical team. XR s/p removal was reviewed, report is pending. Monitor respiratory status. BP control improved, but still uncontrolled. Pain control with Tylenol/Percocet PRN. Neuro: ? seizures,. Patient awake and alert. On Keppra. Neurology following patient. Cardiovascular: HTN: On Norvasc, Cardizem, Lasix, hydralazine, Zestril. Remains uncontrolled. Mgmt as per nephro. Respiratory: B/L pleural effusions : Patient on NC, tolerating well. Chest PT Q4H. 2 chest tubes on right chest output is decreasing. Continues to require O2 via NC. Pulmonary is following. Surgery is following. Antibiotics D/C. CXR: bilateral pleural effusions L>R. GI: Regular diet-soft. Tolerating well. Advance as tolerated. Renal/: CKD with nephrotic syndrome: Nephrology is following. : On Hydralazine /Lisinopril, Lasix and Cardizem Endocrine: DM/ Hypothyroidism: on synthroid. BG mostly controlled with current management. follow endocrinology recs Heme: anemia 2 to CKD: on Procrit. Stable. ID: Antibiotics D/C 07/23 Prophylaxis: DVT: Heparin 5,000U SC, Q12 Encouraged participation in PT/OT. OOB to chair with assistance. Case discussed with primary team, surgical team, and log driver. <AdolfoErvin Yun - Last Filed: 07/25/17 12:28> CCU Subjective - Physician Review Subjective (Free Text): Attestation: Patient seen and examined at the bedside with Resident Dr. Tita Magana; and I agree with her outline of plans and management documented above as discussed on AM rounds reflecting my review of all applicable clinical data, and participation in the care of the patient throughout the day in ICU; July 25, 2017.
--- NOTE | 2017-07-25 11:15 | RAD ---
HISTORY: chest tubes COMPARISON: Chest radiograph dated 07/24/2017. FINDINGS: LUNGS: Interval complete opacification of the left hemithorax. Right basilar atelectasis. PLEURA: Persistent small right pleural effusion. Large left pleural effusion versus atelectasis from mucous plugging. Small right apical pneumothorax. CARDIOVASCULAR: Atherosclerotic aortic calcifications. Cardiomediastinal silhouette cannot be adequately evaluated secondary to adjacent, obscuring lung pathology. OSSEOUS STRUCTURES: Unchanged. VISUALIZED UPPER ABDOMEN: Normal. OTHER FINDINGS: Interval removal of right-sided chest tubes. Left subclavian access central venous catheter, unchanged. IMPRESSION: Tiny right apical pneumothorax post removal of right-sided chest tubes. Interval whiteout of left hemithorax may be due to large pleural effusion versus atelectasis from mucous plugging. Persistent small right pleural effusion. Findings conveyed to ELLY Galdamez by Dr. Malik at 11:05 a.m. on 07/25/2017.
[2017-07-25] MEDS: Epoetin Alfa 20000 UNIT/ML Inj SC SCH (11:42)
--- NOTE | 2017-07-25 13:17 | CP.PCM.PN ---
Subjective - Date & Time of Evaluation Date of Evaluation: 07/25/17 Time of Evaluation: 13:17 - Subjective Subjective: OOB TO CHAIR NO APPARENT DISTRESS Objective - Vital Signs/Intake and Output Vital Signs (last 24 hours): Temp Pulse Resp BP Pulse Ox 97.6 F 73 21 153/70 H 93 L 07/25/17 12:00 07/25/17 12:15 07/25/17 12:00 07/25/17 12:15 07/25/17 12:15 Intake and Output: 07/25/17 07/25/17 06:59 18:59 Intake Total 1220 640 Output Total 1160 Balance 60 640 - Medications Medications: Current Medications Acetylcysteine (Acetylcysteine 20%) 2 ml INH RBID [facility] Last Admin: 07/25/17 07:44 Dose: 2 ml Albuterol/Ipratropium (Duoneb 3 Mg/0.5 Mg (3 Ml) Ud) 3 ml INH RQ6 [facility] Last Admin: 07/25/17 13:08 Dose: 3 ml Amlodipine Besylate (Norvasc) 5 mg PO Q12H [facility] Last Admin: 07/25/17 09:19 Dose: 5 mg Aspirin (Ecotrin) 81 mg PO DAILY [facility] Last Admin: 07/18/17 09:23 Dose: Not Given Bacitracin (Bacitracin Oint) 1 applic TOP DAILY [facility] Last Admin: 07/25/17 09:17 Dose: 1 applic Calcium Acetate (Phoslo) 2,001 mg PO 0830,1200,1830 [facility] Last Admin: 07/14/17 12:26 Dose: 2,001 mg Dextrose (Dextrose 50% Inj) 0 ml IV STAT PRN; Protocol PRN Reason: Hypoglycemia Protocol Dextrose (Glutose 15) 0 gm PO ONCE PRN; Protocol PRN Reason: Hypoglycemia Protocol Dextrose (Dextrose 50% Inj) 50 ml IVP Q1H PRN PRN Reason: Hypoglycemia Diltiazem HCl (Cardizem Cd) 240 mg PO DAILY [facility] Last Admin: 07/25/17 09:17 Dose: 240 mg Epoetin Roel (Procrit) 14,000 unit SC MWF [facility] Last Admin: 07/25/17 11:42 Dose: 14,000 unit Fluconazole (Diflucan) 200 mg PO DAILY [facility] PRN Reason: Protocol Last Admin: 07/25/17 09:17 Dose: 200 mg Furosemide (Lasix) 40 mg IVP BID [facility] Last Admin: 07/25/17 09:21 Dose: 40 mg Glucagon (Glucagen Diagnostic Kit) 0 mg IM STAT PRN; Protocol PRN Reason: Hypoglycemia Protocol Heparin Sodium (Porcine) (Heparin) 5,000 units SC Q12 [facility] PRN Reason: Protocol Last Admin: 07/25/17 11:43 Dose: 5,000 units Hydralazine HCl (Apresoline) 50 mg PO Q8 [facility] Last Admin: 07/25/17 09:16 Dose: 50 mg Dextrose (Dextrose 5% In Water 1000 Ml) 1,000 mls @ 100 mls/hr IV .Q10H [facility] Stop: 07/25/17 18:48 Last Admin: 07/25/17 07:39 Dose: 100 mls/hr Insulin Human Lispro (Humalog) 0 units SC ACHS [facility] PRN Reason: Protocol Last Admin: 07/25/17 11:43 Dose: Not Given Levetiracetam (Keppra) 500 mg PO Q12H [facility] Last Admin: 07/25/17 11:42 Dose: 500 mg Levothyroxine Sodium (Synthroid) 50 mcg PO DAILY@0630 [facility] Last Admin: 07/25/17 06:25 Dose: 50 mcg Lisinopril (Zestril) 40 mg PO DAILY [facility] Last Admin: 07/25/17 09:20 Dose: 40 mg Sodium Bicarbonate (Sodium Bicarbonate Tab) 1,300 mg PO Q8 [facility] Last Admin: 07/02/17 16:23 Dose: 1,300 mg Spironolactone (Aldactone) 25 mg PO BID [facility] Last Admin: 07/25/17 09:16 Dose: 25 mg Thiamine HCl (Vitamin B1 Tab) 100 mg PO DAILY [facility] Last Admin: 07/25/17 09:19 Dose: 100 mg - Labs Labs: 07/25/17 06:30 07/25/17 06:30 PT 15.3 Seconds (9.8-13.1) H 07/18/17 05:30 INR 1.4 (0.9-1.2) H 07/18/17 05:30 APTT 34.2 Seconds (25.6-37.1) 07/18/17 05:30 - Constitutional Appears: Chronically Ill - Head Exam Head Exam: ATRAUMATIC, NORMAL INSPECTION, NORMOCEPHALIC - Eye Exam Eye Exam: EOMI, Normal appearance, PERRL Pupil Exam: NORMAL ACCOMODATION, PERRL - ENT Exam ENT Exam: Mucous Membranes Moist, Normal Exam - Neck Exam Neck Exam: Full ROM, Normal Inspection. absent: Lymphadenopathy - Respiratory Exam Respiratory Exam: Decreased Breath Sounds, NORMAL BREATHING PATTERN - Cardiovascular Exam Cardiovascular Exam: REGULAR RHYTHM, +S1, +S2. absent: Murmur - GI/Abdominal Exam GI & Abdominal Exam: Soft, Normal Bowel Sounds. absent: Tenderness - Rectal Exam Rectal Exam: NORMAL INSPECTION - Extremities Exam Extremities Exam: Full ROM, Normal Capillary Refill, Normal Inspection. absent : Joint Swelling, Pedal Edema - Back Exam Back Exam: NORMAL INSPECTION - Neurological Exam Neurological Exam: Alert, Awake, CN II-XII Intact, Normal Gait, Oriented x3 - Psychiatric Exam Psychiatric exam: Normal Affect, Normal Mood - Skin Skin Exam: Dry, Intact, Normal Color, Warm Assessment and Plan - Assessment and Plan (Free Text) Assessment: R SIDED CHEST TUBES REMOVED R PLEURAL EFFUSION IMPROVED ATELECTASES OF L LUNG PROBABLY DUE TO MUCUS PLUGGING OF AIRWAYS NEPHROTIC SYNDROME Plan: CONTINUE RX ORDERED
--- NOTE | 2017-07-25 14:20 | CP.PCM.PN ---
Subjective - Date & Time of Evaluation Date of Evaluation: 07/25/17 Time of Evaluation: 14:17 - Subjective Subjective: Pt s/e. Clinically stable. chest tubes removed this am. cxr-tiny apical pneurmo. Will follow prn. Objective - Vital Signs/Intake and Output Vital Signs (last 24 hours): Temp Pulse Resp BP Pulse Ox 97.6 F 73 21 153/70 H 93 L 07/25/17 12:00 07/25/17 12:15 07/25/17 12:00 07/25/17 12:15 07/25/17 12:15 Intake and Output: 07/25/17 07/25/17 06:59 18:59 Intake Total 1220 640 Output Total 1160 Balance 60 640 - Medications Medications: Current Medications Acetylcysteine (Acetylcysteine 20%) 2 ml INH RBID [facility] Last Admin: 07/25/17 07:44 Dose: 2 ml Albuterol/Ipratropium (Duoneb 3 Mg/0.5 Mg (3 Ml) Ud) 3 ml INH RQ6 [facility] Last Admin: 07/25/17 13:08 Dose: 3 ml Amlodipine Besylate (Norvasc) 5 mg PO Q12H [facility] Last Admin: 07/25/17 09:19 Dose: 5 mg Aspirin (Ecotrin) 81 mg PO DAILY [facility] Last Admin: 07/18/17 09:23 Dose: Not Given Bacitracin (Bacitracin Oint) 1 applic TOP DAILY [facility] Last Admin: 07/25/17 09:17 Dose: 1 applic Calcium Acetate (Phoslo) 2,001 mg PO 0830,1200,1830 [facility] Last Admin: 07/14/17 12:26 Dose: 2,001 mg Dextrose (Dextrose 50% Inj) 0 ml IV STAT PRN; Protocol PRN Reason: Hypoglycemia Protocol Dextrose (Glutose 15) 0 gm PO ONCE PRN; Protocol PRN Reason: Hypoglycemia Protocol Dextrose (Dextrose 50% Inj) 50 ml IVP Q1H PRN PRN Reason: Hypoglycemia Diltiazem HCl (Cardizem Cd) 240 mg PO DAILY [facility] Last Admin: 07/25/17 09:17 Dose: 240 mg Epoetin Roel (Procrit) 14,000 unit SC MWF [facility] Last Admin: 07/25/17 11:42 Dose: 14,000 unit Fluconazole (Diflucan) 200 mg PO DAILY [facility] PRN Reason: Protocol Last Admin: 07/25/17 09:17 Dose: 200 mg Furosemide (Lasix) 40 mg IVP BID [facility] Last Admin: 07/25/17 09:21 Dose: 40 mg Glucagon (Glucagen Diagnostic Kit) 0 mg IM STAT PRN; Protocol PRN Reason: Hypoglycemia Protocol Heparin Sodium (Porcine) (Heparin) 5,000 units SC Q12 [facility] PRN Reason: Protocol Last Admin: 07/25/17 11:43 Dose: 5,000 units Hydralazine HCl (Apresoline) 50 mg PO Q8 [facility] Last Admin: 07/25/17 09:16 Dose: 50 mg Dextrose (Dextrose 5% In Water 1000 Ml) 1,000 mls @ 100 mls/hr IV .Q10H [facility] Stop: 07/25/17 18:48 Last Admin: 07/25/17 07:39 Dose: 100 mls/hr Insulin Human Lispro (Humalog) 0 units SC ACHS [facility] PRN Reason: Protocol Last Admin: 07/25/17 11:43 Dose: Not Given Levetiracetam (Keppra) 500 mg PO Q12H [facility] Last Admin: 07/25/17 11:42 Dose: 500 mg Levothyroxine Sodium (Synthroid) 50 mcg PO DAILY@0630 [facility] Last Admin: 07/25/17 06:25 Dose: 50 mcg Lisinopril (Zestril) 40 mg PO DAILY [facility] Last Admin: 07/25/17 09:20 Dose: 40 mg Sodium Bicarbonate (Sodium Bicarbonate Tab) 1,300 mg PO Q8 [facility] Last Admin: 07/02/17 16:23 Dose: 1,300 mg Spironolactone (Aldactone) 25 mg PO BID [facility] Last Admin: 07/25/17 09:16 Dose: 25 mg Thiamine HCl (Vitamin B1 Tab) 100 mg PO DAILY [facility] Last Admin: 07/25/17 09:19 Dose: 100 mg - Labs Labs: 07/25/17 06:30 07/25/17 06:30 PT 15.3 Seconds (9.8-13.1) H 07/18/17 05:30 INR 1.4 (0.9-1.2) H 07/18/17 05:30 APTT 34.2 Seconds (25.6-37.1) 07/18/17 05:30
--- NOTE | 2017-07-25 14:44 | CP.PCM.PN ---
Subjective - Date & Time of Evaluation Date of Evaluation: 07/25/17 Time of Evaluation: 08:00 - Subjective Subjective: resting comfortably in view of clinical course would cont diflucan for 3 weeks Objective - Vital Signs/Intake and Output Vital Signs (last 24 hours): Temp Pulse Resp BP Pulse Ox 97.6 F 73 21 153/70 H 93 L 07/25/17 12:00 07/25/17 12:15 07/25/17 12:00 07/25/17 12:15 07/25/17 12:15 Intake and Output: 07/25/17 07/25/17 06:59 18:59 Intake Total 1220 640 Output Total 1160 Balance 60 640 - Medications Medications: Current Medications Acetylcysteine (Acetylcysteine 20%) 2 ml INH RBID [facility] Last Admin: 07/25/17 07:44 Dose: 2 ml Albuterol/Ipratropium (Duoneb 3 Mg/0.5 Mg (3 Ml) Ud) 3 ml INH RQ6 [facility] Last Admin: 07/25/17 13:08 Dose: 3 ml Amlodipine Besylate (Norvasc) 5 mg PO Q12H [facility] Last Admin: 07/25/17 09:19 Dose: 5 mg Aspirin (Ecotrin) 81 mg PO DAILY [facility] Last Admin: 07/18/17 09:23 Dose: Not Given Bacitracin (Bacitracin Oint) 1 applic TOP DAILY [facility] Last Admin: 07/25/17 09:17 Dose: 1 applic Calcium Acetate (Phoslo) 2,001 mg PO 0830,1200,1830 [facility] Last Admin: 07/14/17 12:26 Dose: 2,001 mg Dextrose (Dextrose 50% Inj) 0 ml IV STAT PRN; Protocol PRN Reason: Hypoglycemia Protocol Dextrose (Glutose 15) 0 gm PO ONCE PRN; Protocol PRN Reason: Hypoglycemia Protocol Dextrose (Dextrose 50% Inj) 50 ml IVP Q1H PRN PRN Reason: Hypoglycemia Diltiazem HCl (Cardizem Cd) 240 mg PO DAILY [facility] Last Admin: 07/25/17 09:17 Dose: 240 mg Epoetin Roel (Procrit) 14,000 unit SC MWF [facility] Last Admin: 07/25/17 11:42 Dose: 14,000 unit Fluconazole (Diflucan) 200 mg PO DAILY [facility] PRN Reason: Protocol Last Admin: 07/25/17 09:17 Dose: 200 mg Furosemide (Lasix) 40 mg IVP BID [facility] Last Admin: 07/25/17 09:21 Dose: 40 mg Glucagon (Glucagen Diagnostic Kit) 0 mg IM STAT PRN; Protocol PRN Reason: Hypoglycemia Protocol Heparin Sodium (Porcine) (Heparin) 5,000 units SC Q12 [facility] PRN Reason: Protocol Last Admin: 07/25/17 11:43 Dose: 5,000 units Hydralazine HCl (Apresoline) 50 mg PO Q8 [facility] Last Admin: 07/25/17 09:16 Dose: 50 mg Dextrose (Dextrose 5% In Water 1000 Ml) 1,000 mls @ 100 mls/hr IV .Q10H [facility] Stop: 07/25/17 18:48 Last Admin: 07/25/17 07:39 Dose: 100 mls/hr Insulin Human Lispro (Humalog) 0 units SC ACHS [facility] PRN Reason: Protocol Last Admin: 07/25/17 11:43 Dose: Not Given Levetiracetam (Keppra) 500 mg PO Q12H [facility] Last Admin: 07/25/17 11:42 Dose: 500 mg Levothyroxine Sodium (Synthroid) 50 mcg PO DAILY@0630 [facility] Last Admin: 07/25/17 06:25 Dose: 50 mcg Lisinopril (Zestril) 40 mg PO DAILY [facility] Last Admin: 07/25/17 09:20 Dose: 40 mg Sodium Bicarbonate (Sodium Bicarbonate Tab) 1,300 mg PO Q8 [facility] Last Admin: 07/02/17 16:23 Dose: 1,300 mg Spironolactone (Aldactone) 25 mg PO BID [facility] Last Admin: 07/25/17 09:16 Dose: 25 mg Thiamine HCl (Vitamin B1 Tab) 100 mg PO DAILY [facility] Last Admin: 07/25/17 09:19 Dose: 100 mg - Labs Labs: 07/25/17 06:30 07/25/17 06:30 PT 15.3 Seconds (9.8-13.1) H 07/18/17 05:30 INR 1.4 (0.9-1.2) H 07/18/17 05:30 APTT 34.2 Seconds (25.6-37.1) 07/18/17 05:30 Assessment and Plan (1) Acute renal failure Status: Acute (2) Altered mental status Status: Acute (3) CHF (congestive heart failure) Status: Acute (4) DM2 (diabetes mellitus, type 2) Status: Acute (5) HCAP (healthcare-associated pneumonia) Status: Acute (6) Pleural effusion Status: Acute (7) SIRS (systemic inflammatory response syndrome) Status: Acute (8) Sepsis Status: Acute (9) Acute kidney injury superimposed on chronic kidney disease Status: Acute (10) Alcohol abuse Status: Acute (11) Anasarca Status: Acute (12) Anemia of renal disease Status: Acute (13) Bilateral lower extremity edema Status: Acute
--- NOTE | 2017-07-25 23:26 | CP.PCM.PN ---
Subjective - Date & Time of Evaluation Date of Evaluation: 07/25/17 Time of Evaluation: 11:00 - Subjective Subjective: Patient tolerating a few steps ambulation with PT; tolerating diet well; s/p R chest tubes removal earlier today, still with some pain at the site; Objective - Vital Signs/Intake and Output Vital Signs (last 24 hours): Temp Pulse Resp BP Pulse Ox 98.2 F 73 16 155/62 H 95 07/25/17 19:48 07/25/17 21:40 07/25/17 21:40 07/25/17 21:40 07/25/17 21:40 Intake and Output: 07/25/17 07/26/17 18:59 06:59 Intake Total 1260 50 Output Total 650 Balance 610 50 - Medications Medications: Current Medications Acetylcysteine (Acetylcysteine 20%) 2 ml INH RBID [facility] Last Admin: 07/25/17 19:09 Dose: 2 ml Albuterol/Ipratropium (Duoneb 3 Mg/0.5 Mg (3 Ml) Ud) 3 ml INH RQ6 [facility] Last Admin: 07/25/17 19:10 Dose: 3 ml Amlodipine Besylate (Norvasc) 5 mg PO Q12H [facility] Last Admin: 07/25/17 20:31 Dose: 5 mg Aspirin (Ecotrin) 81 mg PO DAILY [facility] Last Admin: 07/18/17 09:23 Dose: Not Given Bacitracin (Bacitracin Oint) 1 applic TOP DAILY [facility] Last Admin: 07/25/17 09:17 Dose: 1 applic Calcium Acetate (Phoslo) 2,001 mg PO 0830,1200,1830 [facility] Last Admin: 07/14/17 12:26 Dose: 2,001 mg Dextrose (Dextrose 50% Inj) 0 ml IV STAT PRN; Protocol PRN Reason: Hypoglycemia Protocol Dextrose (Glutose 15) 0 gm PO ONCE PRN; Protocol PRN Reason: Hypoglycemia Protocol Dextrose (Dextrose 50% Inj) 50 ml IVP Q1H PRN PRN Reason: Hypoglycemia Diltiazem HCl (Cardizem Cd) 240 mg PO DAILY [facility] Last Admin: 07/25/17 09:17 Dose: 240 mg Epoetin Roel (Procrit) 14,000 unit SC MWF [facility] Last Admin: 07/25/17 11:42 Dose: 14,000 unit Fluconazole (Diflucan) 200 mg PO DAILY [facility] PRN Reason: Protocol Last Admin: 07/25/17 09:17 Dose: 200 mg Furosemide (Lasix) 40 mg IVP BID [facility] Last Admin: 07/25/17 17:32 Dose: 40 mg Glucagon (Glucagen Diagnostic Kit) 0 mg IM STAT PRN; Protocol PRN Reason: Hypoglycemia Protocol Heparin Sodium (Porcine) (Heparin) 5,000 units SC Q12 [facility] PRN Reason: Protocol Last Admin: 07/25/17 20:32 Dose: 5,000 units Hydralazine HCl (Apresoline) 50 mg PO Q8 [facility] Last Admin: 07/25/17 17:06 Dose: Not Given Insulin Human Lispro (Humalog) 0 units SC ACHS [facility] PRN Reason: Protocol Last Admin: 07/25/17 21:33 Dose: Not Given Levetiracetam (Keppra) 500 mg PO Q12H [facility] Last Admin: 07/25/17 21:40 Dose: 500 mg Levothyroxine Sodium (Synthroid) 50 mcg PO DAILY@0630 [facility] Last Admin: 07/25/17 06:25 Dose: 50 mcg Lisinopril (Zestril) 40 mg PO DAILY [facility] Last Admin: 07/25/17 09:20 Dose: 40 mg Sodium Bicarbonate (Sodium Bicarbonate Tab) 1,300 mg PO Q8 [facility] Last Admin: 07/02/17 16:23 Dose: 1,300 mg Spironolactone (Aldactone) 25 mg PO BID [facility] Last Admin: 07/25/17 17:40 Dose: 25 mg Thiamine HCl (Vitamin B1 Tab) 100 mg PO DAILY [facility] Last Admin: 07/25/17 09:19 Dose: 100 mg - Labs Labs: 07/25/17 06:30 07/25/17 06:30 PT 15.3 Seconds (9.8-13.1) H 07/18/17 05:30 INR 1.4 (0.9-1.2) H 07/18/17 05:30 APTT 34.2 Seconds (25.6-37.1) 07/18/17 05:30 - Constitutional Appears: Non-toxic, No Acute Distress - Eye Exam Eye Exam: Normal appearance. absent: Scleral icterus - ENT Exam ENT Exam: Mucous Membranes Moist - Respiratory Exam Respiratory Exam: absent: Respiratory Distress Additional comments: L air movement much improved; some rales present; - Cardiovascular Exam Cardiovascular Exam: RRR, +S1, +S2 - GI/Abdominal Exam GI & Abdominal Exam: Soft. absent: Distended, Tenderness - Extremities Exam Additional comments: edema in dependent areas, arm and distal leg edema much improved; - Neurological Exam Neurological Exam: Alert, Awake - Psychiatric Exam Psychiatric exam: absent: Agitated - Skin Skin Exam: Warm. absent: Cyanosis Assessment and Plan (1) Acute renal failure Assessment & Plan: ATN resolving; need to avoid nephrotoxic agents; can expect some more increase in serum creatinine as patient becomes intravascularly contracted with diuretics /KEVIN blockade; Status: Acute (2) Nephrotic syndrome Assessment & Plan: Trying to maximize control of proteinuria; on max dose lisinopril, cardizem dose increased today, and on aldactone; next step is to try adding ARB slowly, main concern is hyperkalemia; will reassess tomorrow and add losartan 25 mg daily; will repeat 24 hr urine collection for protein in a few days to look for improvement; Status: Chronic (3) Pleural effusion Assessment & Plan: Now s/p bilateral chest tube removal; pleural effusions being attributed to nephrotic syndrome (although the degree of recurrence makes this questionable) so we will try to maximally control proteinuria; see above; Status: Chronic (4) Hypertensive CKD (chronic kidney disease) Assessment & Plan: BP overall better controlled with increased dose of cardizem though still far from goal (<130/80); will try to decrease BP gradually to avoid CHINTAN; Status: Acute (5) Chronic kidney disease, stage 3 (moderate) Status: Chronic (6) Hypothermia Status: Acute (7) Altered mental status Status: Acute (8) SIRS (systemic inflammatory response syndrome) Status: Acute (9) Anemia Assessment & Plan: Hgb stable, continue EPO; Status: Chronic (10) Monoclonal gammopathy Status: Chronic (11) Hypernatremia Assessment & Plan: Improved with D5W overnight, stopping today and encouraging PO water intake; Status: Acute
--- NOTE | 2017-07-26 00:46 | PN ---
DATE: ENDOCRINOLOGY FOLLOWUP NOTE LOCATION: Room 433, ICU. SUBJECTIVE: This is a 66-year-old male with recent acute respiratory failure, now being followed closely for metabolic management. His glycemic levels are much improved at this time and have ranged from 146 to 153 and 172 mg/dL. His latest chemistry showed a BUN of 26, sodium 145, potassium 3.7, chloride 111, CO2 23, glucose 145 and creatinine 2.1. His latest thyroid studies showed a T4 of 7.64 with a TSH of 3.31 and a free T4 of 1.41. So at this time, we will continue the low-dose levothyroxine given as 50 mcg once daily as ordered. We will continue also the low-dose correction scale using Humalog insulin as given. We will titrate incremental as indicated to optimize metabolic control. We will follow and advise accordingly. Bettina Mann MD
[2017-07-26] MEDS: Albuterol-Ipratrop 3 mg / 0.5 (3 ml) UD INH SCH ×4 (01:00→19:20)
[2017-07-26 06:27] LABS: HEMOGLOBIN 10.1 g/dL (12.0-18.0); MEAN CELL VOLUME 91.7 fl (80.0-94.0); MEAN CORPUSCULAR HEMOGLOBIN 28.7 pg (27.0-31.0); MEAN CORPUSCULAR HGB CONC 31.3 g/dL (33.0-37.0); RBC 3.53 Mil/uL (4.40-5.90); RED CELL DISTRIBUTION WIDTH 18.4 % (11.5-14.5); WHITE BLOOD COUNT 6.7 K/uL (4.8-10.8)
[2017-07-26] MEDS: Levothyroxine 50 MCG TAB PO SCH (06:31)
[2017-07-26] MEDS: Insulin Lispro (humaLOG) 100 Units/ml Inj SC SCH ×4 (06:32→22:13)
[2017-07-26 07:03] LABS: CALCIUM 8.3 mg/dL (8.4-10.2)
--- NOTE | 2017-07-26 07:11 | CP.PCM.PN ---
Subjective - Date & Time of Evaluation Date of Evaluation: 07/26/17 Time of Evaluation: 07:15 - Subjective Subjective: Vital Signs: 37.7- 76- 158/68- 24- 91% (4LNC) LEFT subclavian: patent, non-erythematous Salazar Catheter: appears cloudy (?protein), yellow urine 66M resting, minimal pain at RIGHT chest wall. Otherwise, denies SOB. Objective - Vital Signs/Intake and Output Vital Signs (last 24 hours): Temp Pulse Resp BP Pulse Ox 36.8 C 76 24 158/68 H 96 07/26/17 04:00 07/26/17 05:21 07/26/17 05:21 07/26/17 05:21 07/26/17 05:21 Intake and Output: 07/26/17 07/26/17 06:59 18:59 Intake Total 150 Output Total 1000 Balance -850 - Medications Medications: Current Medications Acetylcysteine (Acetylcysteine 20%) 2 ml INH RBID [facility] Last Admin: 07/25/17 19:09 Dose: 2 ml Albuterol/Ipratropium (Duoneb 3 Mg/0.5 Mg (3 Ml) Ud) 3 ml INH RQ6 [facility] Last Admin: 07/26/17 01:00 Dose: 3 ml Amlodipine Besylate (Norvasc) 5 mg PO Q12H [facility] Last Admin: 07/25/17 20:31 Dose: 5 mg Aspirin (Ecotrin) 81 mg PO DAILY [facility] Last Admin: 07/18/17 09:23 Dose: Not Given Bacitracin (Bacitracin Oint) 1 applic TOP DAILY [facility] Last Admin: 07/25/17 09:17 Dose: 1 applic Calcium Acetate (Phoslo) 2,001 mg PO 0830,1200,1830 [facility] Last Admin: 07/14/17 12:26 Dose: 2,001 mg Dextrose (Dextrose 50% Inj) 0 ml IV STAT PRN; Protocol PRN Reason: Hypoglycemia Protocol Dextrose (Glutose 15) 0 gm PO ONCE PRN; Protocol PRN Reason: Hypoglycemia Protocol Dextrose (Dextrose 50% Inj) 50 ml IVP Q1H PRN PRN Reason: Hypoglycemia Diltiazem HCl (Cardizem Cd) 240 mg PO DAILY [facility] Last Admin: 07/25/17 09:17 Dose: 240 mg Epoetin Roel (Procrit) 14,000 unit SC MWF [facility] Last Admin: 07/25/17 11:42 Dose: 14,000 unit Fluconazole (Diflucan) 200 mg PO DAILY [facility] PRN Reason: Protocol Last Admin: 07/25/17 09:17 Dose: 200 mg Furosemide (Lasix) 40 mg IVP BID [facility] Last Admin: 07/25/17 17:32 Dose: 40 mg Glucagon (Glucagen Diagnostic Kit) 0 mg IM STAT PRN; Protocol PRN Reason: Hypoglycemia Protocol Heparin Sodium (Porcine) (Heparin) 5,000 units SC Q12 [facility] PRN Reason: Protocol Last Admin: 07/25/17 20:32 Dose: 5,000 units Hydralazine HCl (Apresoline) 50 mg PO Q8 [facility] Last Admin: 07/26/17 00:07 Dose: 50 mg Magnesium Sulfate 1 gm/ Sodium (Chloride) 102 mls @ 204 mls/hr IVPB ONCE ONE PRN Reason: 1 GM/30 MIN Stop: 07/26/17 07:37 Insulin Human Lispro (Humalog) 0 units SC ACHS [facility] PRN Reason: Protocol Last Admin: 07/26/17 06:32 Dose: Not Given Levetiracetam (Keppra) 500 mg PO Q12H [facility] Last Admin: 07/25/17 21:40 Dose: 500 mg Levothyroxine Sodium (Synthroid) 50 mcg PO DAILY@0630 [facility] Last Admin: 07/26/17 06:31 Dose: 50 mcg Lisinopril (Zestril) 40 mg PO DAILY [facility] Last Admin: 07/25/17 09:20 Dose: 40 mg Sodium Bicarbonate (Sodium Bicarbonate Tab) 1,300 mg PO Q8 [facility] Last Admin: 07/02/17 16:23 Dose: 1,300 mg Spironolactone (Aldactone) 25 mg PO BID [facility] Last Admin: 07/25/17 17:40 Dose: 25 mg Thiamine HCl (Vitamin B1 Tab) 100 mg PO DAILY [facility] Last Admin: 07/25/17 09:19 Dose: 100 mg - Labs Labs: 07/26/17 05:30 07/26/17 05:30 PT 15.3 Seconds (9.8-13.1) H 07/18/17 05:30 INR 1.4 (0.9-1.2) H 07/18/17 05:30 APTT 34.2 Seconds (25.6-37.1) 07/18/17 05:30 - Constitutional Appears: Non-toxic, Chronically Ill - Head Exam Head Exam: ATRAUMATIC, NORMAL INSPECTION - Eye Exam Eye Exam: EOMI, Normal appearance - ENT Exam ENT Exam: Mucous Membranes Dry, Normal Exam - Neck Exam Neck Exam: Full ROM - Respiratory Exam Respiratory Exam: Decreased Breath Sounds (LLL and some decrease on RLL), Rhonchi (RIGHT diffuse), NORMAL BREATHING PATTERN (tachypneic). absent: Wheezes - Cardiovascular Exam Cardiovascular Exam: REGULAR RHYTHM, +S1, +S2 - GI/Abdominal Exam GI & Abdominal Exam: Soft, Normal Bowel Sounds. absent: Tenderness - Neurological Exam Neurological Exam: Alert, Awake - Psychiatric Exam Psychiatric exam: Normal Affect - Skin Skin Exam: Dry, Warm Assessment and Plan - Assessment and Plan (Free Text) Assessment: 66M currently stable, but noted to be more tachypneic despite improvement in CXR. Goals remain to continue with strengthening, nutrition, and pleural effusion control. Will consider for Telemetry transfer Friday on Pulmonary function bed. Plan: 1) Pulmonary: Acute respiratory failure secondary to recurrent pleural effusions thought to be caused by nephrotic syndrome. Doing well on 4LNC. CXR showed small apical pneumo yesterday with post-obstructive atelectasis again on the LEFT that both have improved on today's CXR, but persistence of mod-large LEFT loculated effusion. - 4L nasal cannula - Chest PT Q4H - Suctioning to induce coughing and removal of secretions Q4H - c/w Pulmonary recommendations for mucomyst, bronchodilator. - Will eval for Telemetry on Friday if pt transfers with a [facility] "Pulmonary/ Respiratory function bed" to assist in pulmonary toilet CT Surgery Consult (Dr Gannno) appreciated: Chest tubes discontinued, IR for thoracentesis PRN recollection. CT surgery sign off. Pulmonary Consult (Dr Raymond)appreciated: Chest PT, bronchodilators, mucomyst, c /w current management ID Consult (Dr Dolan) appreciated: d/c Cefepime, culture if febrile, c/w Fluconazole PO for 3wks more (07/25/17) Nephrology Consult (Dr Luz) appreciated: c/w medically controlling nephrotic syndrome with ACEI/CCB, Aldactone and Lasix started (monitor for hyperkalemia), may start ARB soon. 2) Cardiovascular: preCHF: Echo 05/31/17 normal EF 60-65% - HTN due to CKD: f/u Nephrology recommendations, would consider potassium levels will remain balanced if lasix is continued with ACEI/ARBs/and spironolactone. - Aspirin held by Neurology at this time. 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 NO EVIDENCE OF MONOCLONAL LIGHT OR HEAVY CHAIN- RELATED RENAL DISEASE. Renal duplex: no renal vein thrombosis - CKD stage 4: f/u Nephrology recs, monitor BUN/Cr - Anemia: improving, EPO MWF 4) Endocrinology: Stable, improving, f/u endocrinology recommendations, last TSH - 3.31, last Prolactin 27.1 - Prolactinemia: improving, monitor for now (last 27.1) - Hypothyroid: TSH stabilized, c/w Synthroid (last TSH 3.31) - DMII: SSI Lispro, Accu-checks, Hypoglycemic Bundle 5) Infectious Disease: Improving, no clinical indication of infection at this time - HAP: Prolactin: 0.21, no anitbiotics at this time, culture if febrile - c/w Fluconazole for suspected fungal infection Infectious Disease Consult (Dr Dolan) appreciated: c/w Fluconazole at this time 6) Neurology: Stable - c/w Keppra 500mg, PO, Q12H Neurology Consult (Dr Nicholas) appreciated: c/w Keppra, ASA being held, signed off 7) Skin: Overall doing very well thanks to the great care from nursing - Skin tear: healing site on LEFT dorsum of hand, healing on lower back x2, - Sacral-Stage I: healing - c/w heal boots - c/w pressure off-loading 8) Deconditioning - PT/OT, all activity as tolerated - Modified Dysphagia with thin liquids - Consult Dietary: Recommend 60g Protein and modified dysphagia 9) DVT prophylaxis - Heparin 5,000U, SC, Q12H
[2017-07-26] MEDS: Acetylcysteine 20% Inhal Soln (4ml) INH SCH ×2 (07:25→19:20)
--- NOTE | 2017-07-26 08:18 | CP.CCUPN ---
CCU Subjective - Physician Review Events Since Last Encounter (Free Text): 07/26/17 08:15 Patient awake, no distress, on O2 supplement, no fever, no vomiting, events reviewed CCU Objective - Vital Signs / Intake & Output Vital Signs (Last 4 hours): Vital Signs Pulse Resp BP Pulse Ox 07/26/17 05:21 76 24 158/68 H 96 Intake and Output (Last 8hrs): Intake & Output 07/25/17 07/26/17 07/26/17 22:59 06:59 14:59 Intake Total 150 100 Output Total 650 1000 Balance -500 -900 Weight 149 lb 3.2 oz Intake: IV 100 0 Oral 50 100 Output: Urine 650 1000 Urethral (Salazar) 650 1000 - Physical Exam Head: Positive for: Atraumatic, Normocephalic Pupils: Positive for: PERRL Extroacular Muscles: Positive for: EOMI Conjunctiva: Negative for: Icteric Mouth: Positive for: Moist Mucous Membranes Nose (External): Negative for: Lesions Neck: Positive for: Normal Range of Motion (Supple ), Other (central line: left neck in place with dressing, clean and dry.) Respiratory/Chest: Positive for: Clear to Auscultation (right lung, good air entry), Decreased Breath Sounds (entire left hemithorax). Negative for: Respiratory Distress, Accessory Muscle Use, Wheezes, Tachypneic Cardiovascular: Positive for: Regular Rate and Rhythm, Normal S1, S2. Negative for: Tachycardic, Bradycardic Abdomen: Negative for: Tenderness, Distention, Guarding Genitourinary Male: Positive for: Penile Swelling, Testicle Swelling Upper Extremity: Positive for: Edema (bilateral non-pitting edema; right > left. improving) Lower Extremity: Negative for: Edema, CALF TENDERNESS Neurological: Positive for: Other (speech improving, not at baseline) Skin: Positive for: Warm, Dry, Other (skin tear left hand healing well ) Psychiatric: Positive for: Alert, Oriented x 3 - Medications Active Medications: Active Medications Generic Name Dose Route Start Last Admin Trade Name Freq PRN Reason Stop Dose Admin Acetylcysteine 2 ml 07/22/17 20:00 07/26/17 07:25 Acetylcysteine 20% INH 2 ml RBID THOMAS Administration Albuterol/Ipratropium 3 ml 07/18/17 14:00 07/26/17 07:25 Duoneb 3 Mg/0.5 Mg (3 Ml) Ud INH 3 ml RQ6 [facility]OMAS Administration Amlodipine Besylate 5 mg 07/20/17 08:45 07/25/17 20:31 Norvasc PO 5 mg Q12H [facility]OMAS Administration Aspirin 81 mg 07/14/17 09:00 07/18/17 09:23 Ecotrin PO Not Given DAILY THOMAS Bacitracin 1 applic 07/11/17 09:00 07/25/17 09:17 Bacitracin Oint TOP 1 applic DAILY THOMAS Administration Calcium Acetate 2,001 mg 07/05/17 08:30 07/14/17 12:26 Phoslo PO 2,001 mg 0830,1200,1830 [facility]OM[facility] Administration Dextrose 0 ml 06/22/17 22:36 Dextrose 50% Inj IV STAT PRN Hypoglycemia Protocol Protocol Dextrose 0 gm 06/22/17 22:36 Glutose 15 PO ONCE PRN Hypoglycemia Protocol Protocol Dextrose 50 ml 07/14/17 14:52 Dextrose 50% Inj IVP Q1H PRN Hypoglycemia Diltiazem HCl 240 mg 07/25/17 09:00 07/25/17 09:17 Cardizem Cd PO 240 mg DAILY [facility] Administration Epoetin Roel 14,000 unit 07/07/17 09:00 07/25/17 11:42 Procrit SC 14,000 unit MWF [facility] Administration Fluconazole 200 mg 07/12/17 09:00 07/25/17 09:17 Diflucan PO 200 mg DAILY [facility] Administration Protocol Furosemide 40 mg 07/21/17 09:00 07/25/17 17:32 Lasix IVP 40 mg BID [facility]OM[facility] Administration Glucagon 0 mg 06/22/17 22:36 Glucagen Diagnostic Kit IM STAT PRN Hypoglycemia Protocol Protocol Heparin Sodium (Porcine) 5,000 units 07/17/17 21:00 07/25/17 20:32 Heparin SC 5,000 units Q12 [facility] Administration Protocol Hydralazine HCl 50 mg 07/19/17 13:24 07/26/17 00:07 Apresoline PO 50 mg Q8 [facility] Administration Insulin Human Lispro 0 units 07/25/17 11:32 07/26/17 06:32 Humalog SC Not Given ACHS [facility]OM[facility] Protocol Levetiracetam 500 mg 07/25/17 09:00 07/25/17 21:40 Keppra PO 500 mg Q12H [facility] Administration Levothyroxine Sodium 50 mcg 07/05/17 06:30 07/26/17 06:31 Synthroid PO 50 mcg DAILY@0630 [facility] Administration Lisinopril 40 mg 07/19/17 12:45 07/25/17 09:20 Zestril PO 40 mg DAILY [facility] Administration Sodium Bicarbonate 1,300 mg 06/30/17 17:00 07/02/17 16:23 Sodium Bicarbonate Tab PO 1,300 mg Q8 [facility] Administration Spironolactone 25 mg 07/22/17 09:00 07/25/17 17:40 Aldactone PO 25 mg BID [facility] Administration Thiamine HCl 100 mg 07/15/17 09:00 07/25/17 09:19 Vitamin B1 Tab PO 100 mg DAILY [facility]OM[facility] Administration - Patient Studies Lab Studies: Lab Studies 07/26/17 07/26/17 07/26/17 Range/Units 05:30 05:30 05:13 WBC 6.7 (4.8-10.8) K/uL RBC 3.53 L (4.40-5.90) Mil/uL Hgb 10.1 L (12.0-18.0) g/dL Hct 32.3 L (35.0-51.0) % MCV 91.7 (80.0-94.0) fl MCH 28.7 (27.0-31.0) pg MCHC 31.3 L (33.0-37.0) g/dL RDW 18.4 H (11.5-14.5) % Plt Count 263 (130-400) K/uL Sodium 144 (132-148) mmol/l Potassium 3.7 (3.6-5.0) MMOL/L Chloride 108 H (98-107) mmol/L Carbon Dioxide 25 (22-30) mmol/L Anion Gap 15 (10-20) BUN 26 H (9-20) mg/dl Creatinine 2.2 H (0.8-1.5) mg/dl Est GFR ( Amer) 36 Est GFR (Non-Af Amer) 30 POC Glucose (mg/dL) 118 H (65-110) mg/dL Random Glucose 118 H (75-110) mg/dL Calcium 8.3 L (8.4-10.2) mg/dL Phosphorus 4.8 H (2.5-4.5) mg/dl Magnesium 1.5 L (1.6-2.3) MG/DL 07/26/17 07/25/17 07/25/17 Range/Units 04:20 20:55 16:55 WBC (4.8-10.8) K/uL RBC (4.40-5.90) Mil/uL Hgb (12.0-18.0) g/dL Hct (35.0-51.0) % MCV (80.0-94.0) fl MCH (27.0-31.0) pg MCHC (33.0-37.0) g/dL RDW (11.5-14.5) % Plt Count (130-400) K/uL Sodium (132-148) mmol/l Potassium (3.6-5.0) MMOL/L Chloride (98-107) mmol/L Carbon Dioxide (22-30) mmol/L Anion Gap (10-20) BUN (9-20) mg/dl Creatinine (0.8-1.5) mg/dl Est GFR ( Amer) Est GFR (Non-Af Amer) POC Glucose (mg/dL) 144 H 174 H 184 H (65-110) mg/dL Random Glucose (75-110) mg/dL Calcium (8.4-10.2) mg/dL Phosphorus (2.5-4.5) mg/dl Magnesium (1.6-2.3) MG/DL 07/25/17 Range/Units 11:33 WBC (4.8-10.8) K/uL RBC (4.40-5.90) Mil/uL Hgb (12.0-18.0) g/dL Hct (35.0-51.0) % MCV (80.0-94.0) fl MCH (27.0-31.0) pg MCHC (33.0-37.0) g/dL RDW (11.5-14.5) % Plt Count (130-400) K/uL Sodium (132-148) mmol/l Potassium (3.6-5.0) MMOL/L Chloride (98-107) mmol/L Carbon Dioxide (22-30) mmol/L Anion Gap (10-20) BUN (9-20) mg/dl Creatinine (0.8-1.5) mg/dl Est GFR ( Amer) Est GFR (Non-Af Amer) POC Glucose (mg/dL) 196 H (65-110) mg/dL Random Glucose (75-110) mg/dL Calcium (8.4-10.2) mg/dL Phosphorus (2.5-4.5) mg/dl Magnesium (1.6-2.3) MG/DL Laboratory Results - last 24 hr 07/25/17 07/25/17 07/25/17 11:33 16:55 20:55 WBC RBC Hgb Hct MCV MCH MCHC RDW Plt Count Sodium Potassium Chloride Carbon Dioxide Anion Gap BUN Creatinine Est GFR ( Amer) Est GFR (Non-Af Amer) POC Glucose (mg/dL) 196 H 184 H 174 H Random Glucose Calcium Phosphorus Magnesium 07/26/17 07/26/17 07/26/17 04:20 05:13 05:30 WBC 6.7 RBC 3.53 L Hgb 10.1 L Hct 32.3 L MCV 91.7 MCH 28.7 MCHC 31.3 L RDW 18.4 H Plt Count 263 Sodium Potassium Chloride Carbon Dioxide Anion Gap BUN Creatinine Est GFR ( Amer) Est GFR (Non-Af Amer) POC Glucose (mg/dL) 144 H 118 H Random Glucose Calcium Phosphorus Magnesium 07/26/17 05:30 WBC RBC Hgb Hct MCV MCH MCHC RDW Plt Count Sodium 144 Potassium 3.7 Chloride 108 H Carbon Dioxide 25 Anion Gap 15 BUN 26 H Creatinine 2.2 H Est GFR ( Amer) 36 Est GFR (Non-Af Amer) 30 POC Glucose (mg/dL) Random Glucose 118 H Calcium 8.3 L Phosphorus 4.8 H Magnesium 1.5 L Fingerstick Blood Sugar Results: 144 Critical Care Progress Note - Nutrition Nutrition: Nutrition Category Date Time Status Dysphagia/Modified Consistency Diet [DIET] Diets 07/26/17 Breakfast Active Assessment/Plan - Assessment and Plan (Free Text) Assessment: A/P Respiratory insufficiency, CHF, pleural effusion, HTN, anemia, DM, CKD, nephrotic syndrome - Continue meds - O2 supplement - Pulmonary toilets - DVT prophylaxis
[2017-07-26] MEDS: diltiaZEM 240 mg/24 Hours CD Cap PO SCH (08:28)
--- NOTE | 2017-07-26 11:15 | RAD ---
HISTORY: chest tubes COMPARISON: No prior. FINDINGS: Re- demonstrated is left-sided PICC line with tip in the brachiocephalic/SVC junction. LUNGS: Interval improvement previously noted complete opacification left scott thorax improved with aeration left upper lobe. Patchy infiltrate with effusion right lung base. Underlying mild vascular congestive changes suspected. PLEURA: No significant pleural effusion identified, no pneumothorax apparent. CARDIOVASCULAR: Normal. OSSEOUS STRUCTURES: No significant abnormalities. VISUALIZED UPPER ABDOMEN: Normal. OTHER FINDINGS: None. IMPRESSION: Interval improvement previously noted complete opacification left scott thorax improved with aeration left upper lobe. Patchy infiltrate with effusion right lung base. Underlying mild vascular congestive changes suspected.
[2017-07-26] MEDS: Bacitracin OINT 15GM TOP SCH (11:17)
--- NOTE | 2017-07-26 15:10 | PN ---
DATE: ENDOCRINOLOGY FOLLOWUP NOTE LOCATION: In room 433. SUBJECTIVE: This is a 66-year-old male with recent acute respiratory failure, currently taken off his chest tubes both the anterior and posterior chest leone as noticed. He is tolerating his oxygen delivery very well. His glycemic levels are fluctuating, but much improved at this time, and have ranged from 118 to 208 mg/dL. His latest chemistry showed a BUN of 26, sodium 144, potassium 3.7, chloride 108, CO2 of 25, glucose 118, creatinine 2.2. His latest thyroid studies showed a T4 of 7.64 with a TSH of 3.31 and free T4 of 1.43. ASSESSMENT AND PLAN: So at this time, we will continue the low-dose correction scale using Humalog insulin as given. We will also continue the levothyroxine given at 50 mcg daily as ordered. We will titrate incrementally as indicated to optimize metabolic control. We will follow. Bettina Mann MD
--- NOTE | 2017-07-26 18:12 | CP.PCM.PN ---
Subjective - Date & Time of Evaluation Date of Evaluation: 07/26/17 Time of Evaluation: 11:00 - Subjective Subjective: Patient tolerating diet; some pain at site of previous R chest tubes; denies sob ; Objective - Vital Signs/Intake and Output Vital Signs (last 24 hours): Temp Pulse Resp BP Pulse Ox 98.0 F 75 26 H 146/57 L 96 07/26/17 16:00 07/26/17 18:00 07/26/17 18:00 07/26/17 18:00 07/26/17 18:00 Intake and Output: 07/26/17 07/26/17 06:59 18:59 Intake Total 150 720 Output Total 1000 1000 Balance -850 -280 - Medications Medications: Current Medications Acetylcysteine (Acetylcysteine 20%) 2 ml INH RBID [facility] Last Admin: 07/26/17 07:25 Dose: 2 ml Albuterol/Ipratropium (Duoneb 3 Mg/0.5 Mg (3 Ml) Ud) 3 ml INH RQ6 [facility] Last Admin: 07/26/17 13:03 Dose: 3 ml Amlodipine Besylate (Norvasc) 5 mg PO Q12H [facility] Last Admin: 07/26/17 08:27 Dose: 5 mg Aspirin (Ecotrin) 81 mg PO DAILY [facility] Last Admin: 07/18/17 09:23 Dose: Not Given Bacitracin (Bacitracin Oint) 1 applic TOP DAILY [facility] Last Admin: 07/26/17 11:17 Dose: 1 applic Calcium Acetate (Phoslo) 2,001 mg PO 0830,1200,1830 [facility] Last Admin: 07/14/17 12:26 Dose: 2,001 mg Dextrose (Dextrose 50% Inj) 0 ml IV STAT PRN; Protocol PRN Reason: Hypoglycemia Protocol Dextrose (Glutose 15) 0 gm PO ONCE PRN; Protocol PRN Reason: Hypoglycemia Protocol Dextrose (Dextrose 50% Inj) 50 ml IVP Q1H PRN PRN Reason: Hypoglycemia Diltiazem HCl (Cardizem Cd) 240 mg PO DAILY [facility] Last Admin: 07/26/17 08:28 Dose: 240 mg Epoetin Roel (Procrit) 14,000 unit SC MWF [facility] Last Admin: 07/25/17 11:42 Dose: 14,000 unit Fluconazole (Diflucan) 200 mg PO DAILY [facility] PRN Reason: Protocol Last Admin: 07/26/17 08:28 Dose: 200 mg Furosemide (Lasix) 40 mg IVP BID [facility] Last Admin: 07/26/17 16:35 Dose: 40 mg Glucagon (Glucagen Diagnostic Kit) 0 mg IM STAT PRN; Protocol PRN Reason: Hypoglycemia Protocol Heparin Sodium (Porcine) (Heparin) 5,000 units SC Q12 [facility]OM[facility] PRN Reason: Protocol Last Admin: 07/26/17 08:26 Dose: 5,000 units Hydralazine HCl (Apresoline) 50 mg PO Q8 [facility] Last Admin: 07/26/17 16:33 Dose: 50 mg Insulin Human Lispro (Humalog) 0 units SC ACHS [facility]OM[facility] PRN Reason: Protocol Last Admin: 07/26/17 17:04 Dose: Not Given Levetiracetam (Keppra) 500 mg PO Q12H [facility] Last Admin: 07/26/17 08:26 Dose: 500 mg Levothyroxine Sodium (Synthroid) 50 mcg PO DAILY@0630 [facility] Last Admin: 07/26/17 06:31 Dose: 50 mcg Lisinopril (Zestril) 40 mg PO DAILY [facility] Last Admin: 07/26/17 09:08 Dose: 40 mg Losartan Potassium (Cozaar) 25 mg PO DAILY [facility] Last Admin: 07/26/17 11:14 Dose: 25 mg Sodium Bicarbonate (Sodium Bicarbonate Tab) 1,300 mg PO Q8 [facility] Last Admin: 07/02/17 16:23 Dose: 1,300 mg Spironolactone (Aldactone) 25 mg PO BID [facility] Last Admin: 07/26/17 16:34 Dose: 25 mg Thiamine HCl (Vitamin B1 Tab) 100 mg PO DAILY [facility] Last Admin: 07/26/17 08:28 Dose: 100 mg - Labs Labs: 07/26/17 05:30 07/26/17 05:30 PT 15.3 Seconds (9.8-13.1) H 07/18/17 05:30 INR 1.4 (0.9-1.2) H 07/18/17 05:30 APTT 34.2 Seconds (25.6-37.1) 07/18/17 05:30 - Constitutional Appears: Non-toxic, No Acute Distress - Eye Exam Eye Exam: absent: Scleral icterus - ENT Exam ENT Exam: Mucous Membranes Moist - Respiratory Exam Respiratory Exam: absent: Respiratory Distress Additional comments: markedly decreased sounds on L; - GI/Abdominal Exam GI & Abdominal Exam: Soft. absent: Distended, Tenderness - Extremities Exam Additional comments: edema of dependent areas, overall much improved; - Neurological Exam Neurological Exam: Alert, Awake - Psychiatric Exam Psychiatric exam: Normal Affect, Normal Mood. absent: Agitated - Skin Skin Exam: Warm. absent: Cyanosis Assessment and Plan (1) Acute renal failure Assessment & Plan: ATN resolving; can expect hemodynamic increases in serum creatinine with aggressive diuretics and increasing KEVIN blockade; monitor electrolytes; Status: Acute (2) Nephrotic syndrome Assessment & Plan: Losartan 25 mg added today in addition to ARON inhibitor, aldactone and cardizem ; will slowly increase losartan dose; Status: Chronic (3) Pleural effusion Assessment & Plan: Re-collection of L sided effusion? Continuing with control of nephrotic syndrome ; Status: Chronic (4) Hypertensive CKD (chronic kidney disease) Assessment & Plan: BP improving slowly as we would like; goal is eventually to achieve < 130/80; Status: Acute (5) Chronic kidney disease, stage 3 (moderate) Status: Chronic (6) Hypothermia Status: Acute (7) Altered mental status Status: Acute (8) SIRS (systemic inflammatory response syndrome) Status: Acute (9) Anemia Assessment & Plan: Hgb just at goal, continue EPO 3 times per week; Status: Chronic (10) Monoclonal gammopathy Status: Chronic (11) Hypernatremia Assessment & Plan: Stable, continue to encourage PO free water intake; Status: Acute
[2017-07-27] MEDS: Albuterol-Ipratrop 3 mg / 0.5 (3 ml) UD INH SCH ×4 (01:00→19:07)
[2017-07-27] MEDS: Insulin Lispro (humaLOG) 100 Units/ml Inj SC SCH ×4 (06:33→22:05)
[2017-07-27] MEDS: Levothyroxine 50 MCG TAB PO SCH (06:33)
[2017-07-27] MEDS: Acetylcysteine 20% Inhal Soln (4ml) INH SCH ×2 (07:22→19:07)
--- NOTE | 2017-07-27 07:38 | CP.PCM.PN ---
Subjective - Date & Time of Evaluation Date of Evaluation: 07/27/17 Time of Evaluation: 07:38 - Subjective Subjective: Vital Signs: 37.4- 92- 149/59- 21- 95% (4LNC) LEFT subclavian: patent, non-erythematous Salazar Catheter: appears cloudy (?protein), yellow urine 66M resting, minimal pain at RIGHT chest wall. Otherwise, denies SOB. Objective - Vital Signs/Intake and Output Vital Signs (last 24 hours): Temp Pulse Resp BP Pulse Ox 37.1 C 88 20 152/60 H 99 07/27/17 04:00 07/27/17 06:34 07/27/17 06:34 07/27/17 06:09 07/27/17 06:34 Intake and Output: 07/27/17 07/27/17 06:59 18:59 Intake Total 150 Balance 150 - Medications Medications: Current Medications Acetylcysteine (Acetylcysteine 20%) 2 ml INH RBID [facility] Last Admin: 07/27/17 07:22 Dose: Not Given Albuterol/Ipratropium (Duoneb 3 Mg/0.5 Mg (3 Ml) Ud) 3 ml INH RQ6 [facility] Last Admin: 07/27/17 07:22 Dose: 3 ml Amlodipine Besylate (Norvasc) 5 mg PO Q12H [facility] Last Admin: 07/26/17 20:09 Dose: 5 mg Aspirin (Ecotrin) 81 mg PO DAILY [facility] Last Admin: 07/18/17 09:23 Dose: Not Given Bacitracin (Bacitracin Oint) 1 applic TOP DAILY [facility] Last Admin: 07/26/17 11:17 Dose: 1 applic Calcium Acetate (Phoslo) 2,001 mg PO 0830,1200,1830 [facility] Last Admin: 07/14/17 12:26 Dose: 2,001 mg Dextrose (Dextrose 50% Inj) 0 ml IV STAT PRN; Protocol PRN Reason: Hypoglycemia Protocol Dextrose (Glutose 15) 0 gm PO ONCE PRN; Protocol PRN Reason: Hypoglycemia Protocol Dextrose (Dextrose 50% Inj) 50 ml IVP Q1H PRN PRN Reason: Hypoglycemia Diltiazem HCl (Cardizem Cd) 240 mg PO DAILY [facility] Last Admin: 07/26/17 08:28 Dose: 240 mg Epoetin Roel (Procrit) 14,000 unit SC MWF [facility] Last Admin: 07/25/17 11:42 Dose: 14,000 unit Fluconazole (Diflucan) 200 mg PO DAILY [facility] PRN Reason: Protocol Last Admin: 07/26/17 08:28 Dose: 200 mg Furosemide (Lasix) 40 mg IVP BID [facility] Last Admin: 07/26/17 16:35 Dose: 40 mg Glucagon (Glucagen Diagnostic Kit) 0 mg IM STAT PRN; Protocol PRN Reason: Hypoglycemia Protocol Heparin Sodium (Porcine) (Heparin) 5,000 units SC Q12 [facility] PRN Reason: Protocol Last Admin: 07/26/17 20:00 Dose: 5,000 units Hydralazine HCl (Apresoline) 50 mg PO Q8 [facility] Last Admin: 07/27/17 01:11 Dose: 50 mg Insulin Human Lispro (Humalog) 0 units SC ACHS [facility] PRN Reason: Protocol Last Admin: 07/27/17 06:33 Dose: Not Given Levetiracetam (Keppra) 500 mg PO Q12H [facility] Last Admin: 07/26/17 20:11 Dose: 500 mg Levothyroxine Sodium (Synthroid) 50 mcg PO DAILY@0630 [facility] Last Admin: 07/27/17 06:33 Dose: 50 mcg Lisinopril (Zestril) 40 mg PO DAILY [facility] Last Admin: 07/26/17 09:08 Dose: 40 mg Losartan Potassium (Cozaar) 25 mg PO DAILY [facility] Last Admin: 07/26/17 11:14 Dose: 25 mg Sodium Bicarbonate (Sodium Bicarbonate Tab) 1,300 mg PO Q8 [facility] Last Admin: 07/02/17 16:23 Dose: 1,300 mg Spironolactone (Aldactone) 25 mg PO BID [facility] Last Admin: 07/26/17 16:34 Dose: 25 mg Thiamine HCl (Vitamin B1 Tab) 100 mg PO DAILY [facility] Last Admin: 07/26/17 08:28 Dose: 100 mg - Labs Labs: 07/26/17 05:30 07/26/17 05:30 PT 15.3 Seconds (9.8-13.1) H 07/18/17 05:30 INR 1.4 (0.9-1.2) H 07/18/17 05:30 APTT 34.2 Seconds (25.6-37.1) 07/18/17 05:30 - Constitutional Appears: Non-toxic, No Acute Distress, Chronically Ill - Head Exam Head Exam: ATRAUMATIC, NORMAL INSPECTION - Eye Exam Eye Exam: EOMI, Normal appearance - ENT Exam ENT Exam: Mucous Membranes Moist, Normal Exam - Respiratory Exam Respiratory Exam: Chest Wall Tenderness (appropriate for s/p chest tube), Decreased Breath Sounds (mid-lower LEFT lung), Rhonchi (RLL), NORMAL BREATHING PATTERN - Cardiovascular Exam Cardiovascular Exam: REGULAR RHYTHM, +S1, +S2 - GI/Abdominal Exam GI & Abdominal Exam: Soft, Normal Bowel Sounds - Extremities Exam Extremities Exam: Normal Capillary Refill - Neurological Exam Neurological Exam: Alert, Awake - Psychiatric Exam Psychiatric exam: Normal Affect - Skin Skin Exam: Dry, Warm Assessment and Plan - Assessment and Plan (Free Text) Assessment: 66M currently stable, occasional tachypnea, CXR shows improvement. Goals remain to continue with strengthening, nutrition, and pleural effusion control. At this time patient on track for Telemetry transfer Friday on Pulmonary function bed. Plan: 1) Pulmonary: Acute respiratory failure secondary to recurrent pleural effusions thought to be caused by nephrotic syndrome. Continuing to do well on 4LNC with CXR showing improved aeration of LEFT lung. - 4L nasal cannula - c/w Chest PT Q4H - Suctioning to induce coughing and removal of secretions Q4H - c/w Pulmonary recommendations for mucomyst, bronchodilator. - Will eval for Telemetry on Friday with [facility] bed CT Surgery Consult (Dr Gannon) appreciated: Chest tubes discontinued, IR for thoracentesis PRN recollection. CT surgery sign off. Pulmonary Consult (Dr Raymond)appreciated: Chest PT, bronchodilators, mucomyst, c /w current management ID Consult (Dr Dolan) appreciated: d/c Cefepime, culture if febrile, c/w Fluconazole PO for 3wks more (07/25/17) Nephrology Consult (Dr Luz) appreciated: c/w medically controlling nephrotic syndrome with ACEI/CCB, Aldactone and Lasix started (monitor for hyperkalemia), started ARB yesterday. 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 f/u Nephrology recs, patient with hypomagnesemia and hypokalemia, both replaced. It would seem potassium levels are not an issue with current lasix regimen combined with ACEI/ARBs/and spironolactone. - Aspirin held by Neurology at this time. Nephrology Consult (Dr Luz) appreciated: Add ARB, c/w ACEI/Cardiazem/ Spironolactone, Hydralazine, Lasix 3) Renal: As per radiology read this morning that "possible decrease in LEFT effusion" it would seem current regimen is tentatively working for nephrotic syndrome. 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 NO EVIDENCE OF MONOCLONAL LIGHT OR HEAVY CHAIN- RELATED RENAL DISEASE. Renal duplex: no renal vein thrombosis - CKD stage 4: f/u Nephrology recs, monitor BUN/Cr - Anemia: remaining stable but no increase, EPO MWF 4) Endocrinology: Stable, improving, f/u endocrinology recommendations, last TSH - 3.31, last Prolactin 27.1 - Prolactinemia: improving, monitor for now (last 27.1) - Hypothyroid: TSH stabilized, c/w Synthroid (last TSH 3.31) - DMII: SSI Lispro, Accu-checks, Hypoglycemic Bundle 5) Infectious Disease: Improving, no clinical indication of infection at this time - HAP: Prolactin: 0.21, no anitbiotics at this time, culture if febrile - c/w Fluconazole for suspected fungal infection Infectious Disease Consult (Dr Dolan) appreciated: c/w Fluconazole at this time 6) Neurology: Stable - c/w Keppra 500mg, PO, Q12H Neurology Consult (Dr Nicholas) appreciated: c/w Keppra, ASA being held, signed off 7) Skin: Overall doing very well thanks to the great care from nursing - Skin tear: healing site on LEFT dorsum of hand, healing on lower back x2, - Sacral-Stage I: healing - c/w heal boots - c/w pressure off-loading 8) Deconditioning - PT/OT, all activity as tolerated - Modified Dysphagia with thin liquids - Consult Dietary: Recommend 60g Protein and modified dysphagia 9) DVT prophylaxis - Heparin 5,000U, SC, Q12H
--- NOTE | 2017-07-27 07:40 | CP.CCUPN ---
CCU Subjective - Physician Review Events Since Last Encounter (Free Text): 07/27/17 07:39 Patient awake, no distress, on O2 supplement, no fever, no vomiting, events reviewed CCU Objective - Vital Signs / Intake & Output Vital Signs (Last 4 hours): Vital Signs Temp Pulse Resp BP Pulse Ox 07/27/17 06:34 88 20 99 07/27/17 06:09 86 27 H 152/60 H 100 07/27/17 04:00 98.7 F 84 28 H 136/56 L 100 Intake and Output (Last 8hrs): Intake & Output 07/26/17 07/27/17 07/27/17 22:59 06:59 14:59 Intake Total 460 50 Output Total 1000 Balance -540 50 Weight 148 lb Intake: Oral 460 50 Output: Urine 1000 Urethral (Salazar) 1000 Other: # Voids Urethral (Salazar) 800 # Bowel Movements 1 - Physical Exam Head: Positive for: Atraumatic, Normocephalic Pupils: Positive for: PERRL Extroacular Muscles: Positive for: EOMI Conjunctiva: Negative for: Icteric Mouth: Positive for: Moist Mucous Membranes Nose (External): Negative for: Lesions Neck: Positive for: Normal Range of Motion (Supple ), Other (central line: left neck in place with dressing, clean and dry.) Respiratory/Chest: Positive for: Clear to Auscultation (right lung, good air entry), Decreased Breath Sounds (entire left hemithorax). Negative for: Respiratory Distress, Accessory Muscle Use, Wheezes, Tachypneic Cardiovascular: Positive for: Regular Rate and Rhythm, Normal S1, S2. Negative for: Tachycardic, Bradycardic Abdomen: Negative for: Tenderness, Distention, Guarding Genitourinary Male: Positive for: Penile Swelling, Testicle Swelling Upper Extremity: Positive for: Edema (bilateral non-pitting edema; right > left. improving) Lower Extremity: Negative for: Edema, CALF TENDERNESS Neurological: Positive for: Other (speech improving, not at baseline) Skin: Positive for: Warm, Dry, Other (skin tear left hand healing well ) Psychiatric: Positive for: Alert, Oriented x 3 - Medications Active Medications: Active Medications Generic Name Dose Route Start Last Admin Trade Name Freq PRN Reason Stop Dose Admin Acetylcysteine 2 ml 07/22/17 20:00 07/27/17 07:22 Acetylcysteine 20% INH Not Given RBID THOMAS Albuterol/Ipratropium 3 ml 07/18/17 14:00 07/27/17 07:22 Duoneb 3 Mg/0.5 Mg (3 Ml) Ud INH 3 ml RQ6 THOMAS Administration Amlodipine Besylate 5 mg 07/20/17 08:45 07/26/17 20:09 Norvasc PO 5 mg Q12H THOMAS Administration Aspirin 81 mg 07/14/17 09:00 07/18/17 09:23 Ecotrin PO Not Given DAILY THOMAS Bacitracin 1 applic 07/11/17 09:00 07/26/17 11:17 Bacitracin Oint TOP 1 applic DAILY THOMAS Administration Calcium Acetate 2,001 mg 07/05/17 08:30 07/14/17 12:26 Phoslo PO 2,001 mg 0830,1200,1830 THOMAS Administration Dextrose 0 ml 06/22/17 22:36 Dextrose 50% Inj IV STAT PRN Hypoglycemia Protocol Protocol Dextrose 0 gm 06/22/17 22:36 Glutose 15 PO ONCE PRN Hypoglycemia Protocol Protocol Dextrose 50 ml 07/14/17 14:52 Dextrose 50% Inj IVP Q1H PRN Hypoglycemia Diltiazem HCl 240 mg 07/25/17 09:00 07/26/17 08:28 Cardizem Cd PO 240 mg DAILY THOMAS Administration Epoetin Roel 14,000 unit 07/07/17 09:00 07/25/17 11:42 Procrit SC 14,000 unit MWF THOMAS Administration Fluconazole 200 mg 07/12/17 09:00 07/26/17 08:28 Diflucan PO 200 mg DAILY THOMAS Administration Protocol Furosemide 40 mg 07/21/17 09:00 07/26/17 16:35 Lasix IVP 40 mg BID THOMAS Administration Glucagon 0 mg 06/22/17 22:36 Glucagen Diagnostic Kit IM STAT PRN Hypoglycemia Protocol Protocol Heparin Sodium (Porcine) 5,000 units 07/17/17 21:00 07/26/17 20:00 Heparin SC 5,000 units Q12 THOMAS Administration Protocol Hydralazine HCl 50 mg 07/19/17 13:24 07/27/17 01:11 Apresoline PO 50 mg Q8 THOMAS Administration Insulin Human Lispro 0 units 07/25/17 11:32 07/27/17 06:33 Humalog SC Not Given ACHS THOMAS Protocol Levetiracetam 500 mg 07/25/17 09:00 07/26/17 20:11 Keppra PO 500 mg Q12H THOMAS Administration Levothyroxine Sodium 50 mcg 07/05/17 06:30 07/27/17 06:33 Synthroid PO 50 mcg DAILY@0630 THOMAS Administration Lisinopril 40 mg 07/19/17 12:45 07/26/17 09:08 Zestril PO 40 mg DAILY THOMAS Administration Losartan Potassium 25 mg 07/26/17 09:30 07/26/17 11:14 Cozaar PO 25 mg DAILY THOMAS Administration Sodium Bicarbonate 1,300 mg 06/30/17 17:00 07/02/17 16:23 Sodium Bicarbonate Tab PO 1,300 mg Q8 THOMAS Administration Spironolactone 25 mg 07/22/17 09:00 07/26/17 16:34 Aldactone PO 25 mg BID THOMAS Administration Thiamine HCl 100 mg 07/15/17 09:00 07/26/17 08:28 Vitamin B1 Tab PO 100 mg DAILY THOMAS Administration - Patient Studies Lab Studies: Microbiology Studies 06/25/17 16:51 Mycobacterial Culture - Preliminary Other: Please Indicate Lab Studies 07/26/17 07/26/17 07/26/17 Range/Units 21:14 17:03 11:16 POC Glucose (mg/dL) 168 H 116 H 208 H (65-110) mg/dL Laboratory Results - last 24 hr 07/26/17 07/26/17 07/26/17 11:16 17:03 21:14 POC Glucose (mg/dL) 208 H 116 H 168 H Fingerstick Blood Sugar Results: 144 Critical Care Progress Note - Nutrition Nutrition: Nutrition Category Date Time Status Dysphagia/Modified Consistency Diet [DIET] Diets 07/26/17 Breakfast Active Assessment/Plan - Assessment and Plan (Free Text) Assessment: A/P Respiratory insufficiency, CHF, pleural effusion, HTN, anemia, DM, CKD, nephrotic syndrome - Continue meds - O2 supplement - Pulmonary toilets - DVT prophylaxis
[2017-07-27 07:59] LABS: HEMOGLOBIN 9.9 g/dL (12.0-18.0); MEAN CELL VOLUME 92.8 fl (80.0-94.0); MEAN CORPUSCULAR HEMOGLOBIN 28.7 pg (27.0-31.0); MEAN CORPUSCULAR HGB CONC 30.9 g/dL (33.0-37.0); RBC 3.44 Mil/uL (4.40-5.90); RED CELL DISTRIBUTION WIDTH 19.5 % (11.5-14.5); WHITE BLOOD COUNT 7.4 K/uL (4.8-10.8)
[2017-07-27 08:01] LABS: CALCIUM 8.3 mg/dL (8.4-10.2)
[2017-07-27] MEDS: diltiaZEM 240 mg/24 Hours CD Cap PO SCH (08:37)
[2017-07-27] MEDS: Bacitracin OINT 15GM TOP SCH (08:37)
[2017-07-27] MEDS ORDERED: Potassium Chloride 20 mEq ER Tab PO ONE (08:53)
--- NOTE | 2017-07-27 11:19 | CP.PCM.PN ---
Subjective - Date & Time of Evaluation Date of Evaluation: 07/27/17 Time of Evaluation: 11:19 - Subjective Subjective: NO NEW CLINICAL FINDINGS CXR-BILATERAL PLEURAL EFFUSIONS[L>R] LUNGS-DULLNESS AT BASES HEART-S1S2 IMPR-PLEURAL EFFUSIONS DUE TO NEPHROTIC SYNDROME WILL CONTINUE CURRENT RX MAY NEED REPEATED THORACENTESES IF EFFUSIONS WORSEN/PERSIST Objective - Vital Signs/Intake and Output Vital Signs (last 24 hours): Temp Pulse Resp BP Pulse Ox 99.3 F 95 H 28 H 149/59 L 100 07/27/17 08:00 07/27/17 08:39 07/27/17 08:00 07/27/17 08:39 07/27/17 08:00 Intake and Output: 07/27/17 07/27/17 06:59 18:59 Intake Total 150 140 Balance 150 140 - Medications Medications: Current Medications Acetylcysteine (Acetylcysteine 20%) 2 ml INH RBID [facility] Last Admin: 07/27/17 07:22 Dose: Not Given Albuterol/Ipratropium (Duoneb 3 Mg/0.5 Mg (3 Ml) Ud) 3 ml INH RQ6 [facility] Last Admin: 07/27/17 07:22 Dose: 3 ml Amlodipine Besylate (Norvasc) 5 mg PO Q12H [facility] Last Admin: 07/27/17 08:39 Dose: 5 mg Aspirin (Ecotrin) 81 mg PO DAILY [facility] Last Admin: 07/18/17 09:23 Dose: Not Given Bacitracin (Bacitracin Oint) 1 applic TOP DAILY [facility] Last Admin: 07/27/17 08:37 Dose: 1 applic Calcium Acetate (Phoslo) 2,001 mg PO 0830,1200,1830 [facility] Last Admin: 07/14/17 12:26 Dose: 2,001 mg Dextrose (Dextrose 50% Inj) 0 ml IV STAT PRN; Protocol PRN Reason: Hypoglycemia Protocol Dextrose (Glutose 15) 0 gm PO ONCE PRN; Protocol PRN Reason: Hypoglycemia Protocol Dextrose (Dextrose 50% Inj) 50 ml IVP Q1H PRN PRN Reason: Hypoglycemia Diltiazem HCl (Cardizem Cd) 240 mg PO DAILY [facility] Last Admin: 07/27/17 08:37 Dose: 240 mg Epoetin Roel (Procrit) 14,000 unit SC MWF [facility] Last Admin: 07/25/17 11:42 Dose: 14,000 unit Fluconazole (Diflucan) 200 mg PO DAILY [facility] PRN Reason: Protocol Last Admin: 07/27/17 08:38 Dose: 200 mg Furosemide (Lasix) 40 mg IVP BID [facility] Last Admin: 07/27/17 08:38 Dose: 40 mg Glucagon (Glucagen Diagnostic Kit) 0 mg IM STAT PRN; Protocol PRN Reason: Hypoglycemia Protocol Heparin Sodium (Porcine) (Heparin) 5,000 units SC Q12 [facility]OMAS PRN Reason: Protocol Last Admin: 07/27/17 08:38 Dose: 5,000 units Hydralazine HCl (Apresoline) 50 mg PO Q8 [facility] Last Admin: 07/27/17 08:36 Dose: Not Given Insulin Human Lispro (Humalog) 0 units SC ACHS [facility] PRN Reason: Protocol Last Admin: 07/27/17 06:33 Dose: Not Given Levetiracetam (Keppra) 500 mg PO Q12H [facility] Last Admin: 07/27/17 08:38 Dose: 500 mg Levothyroxine Sodium (Synthroid) 50 mcg PO DAILY@0630 [facility] Last Admin: 07/27/17 06:33 Dose: 50 mcg Lisinopril (Zestril) 40 mg PO DAILY [facility] Last Admin: 07/27/17 08:39 Dose: 40 mg Losartan Potassium (Cozaar) 25 mg PO DAILY [facility] Last Admin: 07/27/17 08:38 Dose: 25 mg Sodium Bicarbonate (Sodium Bicarbonate Tab) 1,300 mg PO Q8 [facility] Last Admin: 07/02/17 16:23 Dose: 1,300 mg Spironolactone (Aldactone) 25 mg PO BID [facility] Last Admin: 07/27/17 08:36 Dose: 25 mg Thiamine HCl (Vitamin B1 Tab) 100 mg PO DAILY [facility] Last Admin: 07/27/17 08:39 Dose: 100 mg - Labs Labs: 07/27/17 06:55 07/27/17 06:55 PT 15.3 Seconds (9.8-13.1) H 07/18/17 05:30 INR 1.4 (0.9-1.2) H 07/18/17 05:30 APTT 34.2 Seconds (25.6-37.1) 07/18/17 05:30
--- NOTE | 2017-07-27 11:46 | RAD ---
HISTORY: chest tubes COMPARISON: Comparison chest 07/26/2017. FINDINGS: No change left-sided PICC line with tip in the left brachiocephalic vein near the SVC junction (oriented at approximately 45 degrees with respect to the long axis of the SVC) LUNGS: Re- demonstrated is opacification of the left mid to lower lung zone which may have diminished in size slightly with further improvement aeration left upper lung field. Findings likely represent some combination of atelectasis/ infiltrate and large effusion. . . Additionally, there is a smaller right-sided effusion with atelectasis and/or infiltrate right mid to lower lung zone as well. PLEURA: As above. No apparent pneumothorax. CARDIOVASCULAR: Heart size is difficult to assess due to silhouetting OSSEOUS STRUCTURES: No significant abnormalities. VISUALIZED UPPER ABDOMEN: Normal. OTHER FINDINGS: None. IMPRESSION: Re- demonstrated is opacification of the left mid to lower lung zone which may have diminished in size slightly with further improvement aeration left upper lung field. Findings likely represent some combination of atelectasis/ infiltrate and large effusion. . . Additionally, there is a smaller right-sided effusion with atelectasis and/or infiltrate right mid to lower lung zone as well.
--- NOTE | 2017-07-27 22:19 | PN ---
DATE: LOCATION: In ICU room 433. SUBJECTIVE: This is a 66-year-old male with recent acute respiratory failure and underlying pleural effusion and now has been taken off the chest tubes both anteriorly and posteriorly as noted thereof. His glycemic levels are fluctuating, but improved and the latest glucose levels have ranged from 116 to 168 mg/dL. The latest chemistry showed a BUN of 27, sodium 145, potassium 3.5, chloride 108, CO2 of 26, glucose 128 and creatinine 2.5. So at this time, we will continue the low dose levothyroxine given as 50 mcg once daily as ordered. We will repeat thyroid function studies tomorrow morning to titrate his dose regimen accordingly. The latest thyroid studies we have on record show the T4 of 7.64 with a TSH of 3.31 and a free T4 of 1.43. As mentioned, we will titrate his dose regimen to optimize metabolic control. We will follow. Bettina Mann MD
[2017-07-28] MEDS: Albuterol-Ipratrop 3 mg / 0.5 (3 ml) UD INH SCH ×4 (01:05→19:07)
[2017-07-28 06:08] LABS: HEMOGLOBIN 10.2 g/dL (12.0-18.0); MEAN CELL VOLUME 92.4 fl (80.0-94.0); MEAN CORPUSCULAR HEMOGLOBIN 29.2 pg (27.0-31.0); MEAN CORPUSCULAR HGB CONC 31.6 g/dL (33.0-37.0); RBC 3.49 Mil/uL (4.40-5.90); RED CELL DISTRIBUTION WIDTH 18.5 % (11.5-14.5); WHITE BLOOD COUNT 8.7 K/uL (4.8-10.8)
[2017-07-28] MEDS: Levothyroxine 50 MCG TAB PO SCH (06:21)
[2017-07-28 06:32] LABS: ALB/GLOB RATIO 0.8 (1.0-2.1); ALBUMIN 2.5 g/dL (3.5-5.0); CALCIUM 8.5 mg/dL (8.4-10.2)
[2017-07-28] MEDS: Insulin Lispro (humaLOG) 100 Units/ml Inj SC SCH ×4 (06:33→21:22)
[2017-07-28 06:45] LABS: T4 5.77 ug/dl (5.5-11.0)
[2017-07-28] MEDS: Acetylcysteine 20% Inhal Soln (4ml) INH SCH ×2 (08:21→19:07)
[2017-07-28] MEDS ORDERED: Lidocaine 5% Patch TD SCH (09:00)
--- NOTE | 2017-07-28 09:45 | CP.CCUPN ---
<Layo Curiel - Last Filed: 07/28/17 12:15> CCU Subjective - Physician Review Subjective (Free Text): Pt. seen at bedside this morning and discussed with Dr. Llanos. Pt. in no distress. Pt. sitting upright watching television. Pt. reports eating well and having a bowel movement daily. Overnight events reviewed. On ROS, Pt. denies any headache, chest pain, difficulty breathing, fever, chills , nausea, vomiting, or back pain. CCU Objective - Vital Signs / Intake & Output Vital Signs (Last 4 hours): Vital Signs Temp Pulse Resp BP Pulse Ox 07/28/17 08:00 98.1 F 81 17 141/64 100 07/28/17 06:00 82 143/66 100 - Physical Exam Physical Exam Limitations: Positive for: Other (Appearrs frail and cachectic) Head: Positive for: Atraumatic, Normocephalic Conjunctiva: Negative for: Icteric Mouth: Positive for: Moist Mucous Membranes Neck: Positive for: Normal Range of Motion (Supple ), Other (central line: left chest wall in place with dressing, clean and dry.) Respiratory/Chest: Positive for: Good Air Exchange, Rhonchi (Left basilar and mild lung rhonchi greater on the left than right ). Negative for: Respiratory Distress, Tachypneic Cardiovascular: Positive for: Regular Rate and Rhythm, Normal S1, S2. Negative for: Tachycardic, Bradycardic Abdomen: Negative for: Tenderness, Distention, Guarding Upper Extremity: Positive for: Edema (bilat upper extremity edema noted no change from previous exam but equal pulses bilaterally ), NORMAL PULSES, Capillary Refill < 2s Lower Extremity: Negative for: Edema, CALF TENDERNESS Neurological: Positive for: CN II-XII Intact Skin: Positive for: Warm, Dry, Other (supeficial abrasion of left hand healing well ) Psychiatric: Positive for: Alert, Oriented x 3 - Medications Active Medications: Active Medications Generic Name Dose Route Start Last Admin Trade Name Freq PRN Reason Stop Dose Admin Acetylcysteine 2 ml 07/22/17 20:00 07/28/17 08:21 Acetylcysteine 20% INH 2 ml RBID DEB Administration Albuterol/Ipratropium 3 ml 07/18/17 14:00 07/28/17 08:21 Duoneb 3 Mg/0.5 Mg (3 Ml) Ud INH 3 ml RQ6 DEB Administration Amlodipine Besylate 5 mg 07/20/17 08:45 07/27/17 21:30 Norvasc PO 5 mg Q12H DEB Administration Aspirin 81 mg 07/14/17 09:00 07/18/17 09:23 Ecotrin PO Not Given DAILY DEB Bacitracin 1 applic 07/11/17 09:00 07/27/17 08:37 Bacitracin Oint TOP 1 applic DAILY DEB Administration Calcium Acetate 2,001 mg 07/05/17 08:30 07/14/17 12:26 Phoslo PO 2,001 mg 0830,1200,1830 DEB Administration Dextrose 0 ml 06/22/17 22:36 Dextrose 50% Inj IV STAT PRN Hypoglycemia Protocol Protocol Dextrose 0 gm 06/22/17 22:36 Glutose 15 PO ONCE PRN Hypoglycemia Protocol Protocol Dextrose 50 ml 07/14/17 14:52 Dextrose 50% Inj IVP Q1H PRN Hypoglycemia Diltiazem HCl 240 mg 07/25/17 09:00 07/27/17 08:37 Cardizem Cd PO 240 mg DAILY DEB Administration Epoetin Roel 14,000 unit 07/07/17 09:00 07/25/17 11:42 Procrit SC 14,000 unit MWF DEB Administration Fluconazole 200 mg 07/12/17 09:00 07/27/17 08:38 Diflucan PO 200 mg DAILY DEB Administration Protocol Furosemide 40 mg 07/21/17 09:00 07/27/17 16:08 Lasix IVP 40 mg BID DEB Administration Glucagon 0 mg 06/22/17 22:36 Glucagen Diagnostic Kit IM STAT PRN Hypoglycemia Protocol Protocol Heparin Sodium (Porcine) 5,000 units 07/17/17 21:00 07/27/17 21:30 Heparin SC 5,000 units Q12 DEB Administration Protocol Hydralazine HCl 50 mg 07/19/17 13:24 07/28/17 02:51 Apresoline PO 50 mg Q8 DEB Administration Insulin Human Lispro 0 units 07/25/17 11:32 07/28/17 06:33 Humalog SC Not Given ACHS DEB Protocol Levetiracetam 500 mg 07/25/17 09:00 07/27/17 21:30 Keppra PO 500 mg Q12H DEB Administration Levothyroxine Sodium 50 mcg 07/05/17 06:30 07/28/17 06:21 Synthroid PO 50 mcg DAILY@0630 DEB Administration Lidocaine 1 ea 07/28/17 09:00 Lidoderm TD DAILY DEB Lisinopril 40 mg 07/19/17 12:45 07/27/17 08:39 Zestril PO 40 mg DAILY DEB Administration Losartan Potassium 25 mg 07/26/17 09:30 07/27/17 08:38 Cozaar PO 25 mg DAILY DEB Administration Sodium Bicarbonate 1,300 mg 06/30/17 17:00 07/02/17 16:23 Sodium Bicarbonate Tab PO 1,300 mg Q8 DEB Administration Spironolactone 25 mg 07/22/17 09:00 07/27/17 16:07 Aldactone PO 25 mg BID DEB Administration Thiamine HCl 100 mg 07/15/17 09:00 07/27/17 08:39 Vitamin B1 Tab PO 100 mg DAILY DEB Administration - Patient Studies Lab Studies: Lab Studies 07/28/17 07/28/17 07/27/17 Range/Units 04:30 04:30 21:21 WBC 8.7 (4.8-10.8) K/uL RBC 3.49 L (4.40-5.90) Mil/uL Hgb 10.2 L (12.0-18.0) g/dL Hct 32.3 L (35.0-51.0) % MCV 92.4 (80.0-94.0) fl MCH 29.2 (27.0-31.0) pg MCHC 31.6 L (33.0-37.0) g/dL RDW 18.5 H (11.5-14.5) % Plt Count 222 (130-400) K/uL Sodium 148 (132-148) mmol/l Potassium 4.0 (3.6-5.0) MMOL/L Chloride 111 H (98-107) mmol/L Carbon Dioxide 27 (22-30) mmol/L Anion Gap 14 (10-20) BUN 29 H (9-20) mg/dl Creatinine 2.6 H (0.8-1.5) mg/dl Est GFR ( Amer) 30 Est GFR (Non-Af Amer) 25 POC Glucose (mg/dL) 156 H (65-110) mg/dL Random Glucose 110 (75-110) mg/dL Calcium 8.5 (8.4-10.2) mg/dL Total Bilirubin 0.4 (0.2-1.3) mg/dl AST 14 L (17-59) U/L ALT 25 (21-72) U/L Alkaline Phosphatase 150 H (38-126) U/L Total Protein 5.7 L (6.3-8.2) G/DL Albumin 2.5 L (3.5-5.0) g/dL Globulin 3.3 (2.2-3.9) gm/dL Albumin/Globulin Ratio 0.8 L (1.0-2.1) Thyroxine (T4) 5.77 (5.5-11.0) ug/dl TSH 3rd Generation 2.93 (0.46-4.68) mIU/ML 07/27/17 07/27/17 07/27/17 Range/Units 16:41 11:13 05:17 WBC (4.8-10.8) K/uL RBC (4.40-5.90) Mil/uL Hgb (12.0-18.0) g/dL Hct (35.0-51.0) % MCV (80.0-94.0) fl MCH (27.0-31.0) pg MCHC (33.0-37.0) g/dL RDW (11.5-14.5) % Plt Count (130-400) K/uL Sodium (132-148) mmol/l Potassium (3.6-5.0) MMOL/L Chloride (98-107) mmol/L Carbon Dioxide (22-30) mmol/L Anion Gap (10-20) BUN (9-20) mg/dl Creatinine (0.8-1.5) mg/dl Est GFR ( Amer) Est GFR (Non-Af Amer) POC Glucose (mg/dL) 147 H 190 H 149 H (65-110) mg/dL Random Glucose (75-110) mg/dL Calcium (8.4-10.2) mg/dL Total Bilirubin (0.2-1.3) mg/dl AST (17-59) U/L ALT (21-72) U/L Alkaline Phosphatase (38-126) U/L Total Protein (6.3-8.2) G/DL Albumin (3.5-5.0) g/dL Globulin (2.2-3.9) gm/dL Albumin/Globulin Ratio (1.0-2.1) Thyroxine (T4) (5.5-11.0) ug/dl TSH 3rd Generation (0.46-4.68) mIU/ML Laboratory Results - last 24 hr 07/27/17 07/27/17 07/27/17 05:17 11:13 16:41 WBC RBC Hgb Hct MCV MCH MCHC RDW Plt Count Sodium Potassium Chloride Carbon Dioxide Anion Gap BUN Creatinine Est GFR ( Amer) Est GFR (Non-Af Amer) POC Glucose (mg/dL) 149 H 190 H 147 H Random Glucose Calcium Total Bilirubin AST ALT Alkaline Phosphatase Total Protein Albumin Globulin Albumin/Globulin Ratio Thyroxine (T4) TSH 3rd Generation 07/27/17 07/28/17 07/28/17 21:21 04:30 04:30 WBC 8.7 RBC 3.49 L Hgb 10.2 L Hct 32.3 L MCV 92.4 MCH 29.2 MCHC 31.6 L RDW 18.5 H Plt Count 222 Sodium 148 Potassium 4.0 Chloride 111 H Carbon Dioxide 27 Anion Gap 14 BUN 29 H Creatinine 2.6 H Est GFR ( Amer) 30 Est GFR (Non-Af Amer) 25 POC Glucose (mg/dL) 156 H Random Glucose 110 Calcium 8.5 Total Bilirubin 0.4 AST 14 L ALT 25 Alkaline Phosphatase 150 H Total Protein 5.7 L Albumin 2.5 L Globulin 3.3 Albumin/Globulin Ratio 0.8 L Thyroxine (T4) 5.77 TSH 3rd Generation 2.93 Fingerstick Blood Sugar Results: 104 Review of Systems - Review of Systems Review of Systems: See HPI Critical Care Progress Note - Nutrition Nutrition: Nutrition Category Date Time Status Dysphagia/Modified Consistency Diet [DIET] Diets 07/26/17 Breakfast Active Assessment/Plan - Assessment and Plan (Free Text) Plan: 66 y.o. male with chronic recurrent pleural effusion of unclear etiology now chronic but improving Recurrent Pleural Effusion- Chronic improving 1- Lasix 40mg IVP BID 2- Duoneb Q6 deb 3- Acetylcysteine INH BID HTN 1- Diltiazem CD 240mg po daily 2- Amlodipine 5mg po Q12 3- Lisinopril 40mg po daily 4- Losartan 25mg po daily CKD- Chronic with Nephrotic syndrome BUN/CR 29/2.6 GFR > 25 1- Spironolactone 25mg po bid 2- Lasix 40mg IVP BID 3- Input Nephrology input Anemia- Chronic H/H with MCV of 90 1- Procrit 14,000 units sc MWF Type II DM 1- HbA1c of 7.2 2- Start Sliding scale insulin 3- Consider starting basal insulin as per primary team to target accucheck < 150 Deconditioning 1- c/w PT/OT Hypothyroidism 1- c/wLevothyroxine 50mcg po daily DVT Prophylaxis 1- Heparin 5000 units sc q12 Code Status 1- Full code <Allen Llanos V - Last Filed: 07/28/17 15:11> CCU Subjective - Physician Review Events Since Last Encounter (Free Text): 07/28/17 15:10 Patient is seen, examined at bedside. Case was discussed in am rounds. Agree with plan of care as detailed in resident's note CCU Objective - Vital Signs / Intake & Output Vital Signs (Last 4 hours): Vital Signs Temp Pulse Resp BP Pulse Ox 07/28/17 14:00 83 16 131/60 100 07/28/17 12:00 98.6 F 82 16 133/58 L 100 Intake and Output (Last 8hrs): Intake & Output 07/28/17 07/28/17 07/28/17 06:59 14:59 22:59 Intake Total 450 Balance 450 Intake: Oral 450 Other: # Bowel Movements 1 - Medications Active Medications: Active Medications Generic Name Dose Route Start Last Admin Trade Name Freq PRN Reason Stop Dose Admin Acetylcysteine 2 ml 07/22/17 20:00 07/28/17 08:21 Acetylcysteine 20% INH 2 ml RBID DEB Administration Albuterol/Ipratropium 3 ml 07/18/17 14:00 07/28/17 12:59 Duoneb 3 Mg/0.5 Mg (3 Ml) Ud INH 3 ml RQ6 DEB Administration Amlodipine Besylate 5 mg 07/20/17 08:45 07/28/17 09:51 Norvasc PO 5 mg Q12H DEB Administration Aspirin 81 mg 07/14/17 09:00 07/18/17 09:23 Ecotrin PO Not Given DAILY DEB Bacitracin 1 applic 07/11/17 09:00 07/28/17 09:49 Bacitracin Oint TOP 1 applic DAILY DEB Administration Calcium Acetate 2,001 mg 07/05/17 08:30 07/14/17 12:26 Phoslo PO 2,001 mg 0830,1200,1830 DEB Administration Dextrose 0 ml 06/22/17 22:36 Dextrose 50% Inj IV STAT PRN Hypoglycemia Protocol Protocol Dextrose 0 gm 06/22/17 22:36 Glutose 15 PO ONCE PRN Hypoglycemia Protocol Protocol Dextrose 50 ml 07/14/17 14:52 Dextrose 50% Inj IVP Q1H PRN Hypoglycemia Dextrose 0 ml 07/28/17 12:03 Dextrose 50% Inj IV STAT PRN Hypoglycemia Protocol Protocol Dextrose 0 gm 07/28/17 12:03 Glutose 15 PO ONCE PRN Hypoglycemia Protocol Protocol Diltiazem HCl 240 mg 07/25/17 09:00 07/28/17 09:49 Cardizem Cd PO 240 mg DAILY DEB Administration Epoetin Roel 14,000 unit 07/07/17 09:00 07/28/17 09:53 Procrit SC 14,000 unit MWF DEB Administration Fluconazole 200 mg 07/12/17 09:00 07/28/17 09:50 Diflucan PO 200 mg DAILY DEB Administration Protocol Furosemide 40 mg 07/21/17 09:00 07/28/17 09:51 Lasix IVP 40 mg BID DEB Administration Glucagon 0 mg 06/22/17 22:36 Glucagen Diagnostic Kit IM STAT PRN Hypoglycemia Protocol Protocol Glucagon 0 mg 07/28/17 12:03 Glucagen Diagnostic Kit IM STAT PRN Hypoglycemia Protocol Protocol Heparin Sodium (Porcine) 5,000 units 07/17/17 21:00 07/28/17 09:50 Heparin SC 5,000 units Q12 DEB Administration Protocol Hydralazine HCl 50 mg 07/19/17 13:24 07/28/17 09:49 Apresoline PO 50 mg Q8 DEB Administration Insulin Human Lispro 0 units 07/25/17 11:32 07/28/17 12:08 Humalog SC Not Given ACHS DEB Protocol Insulin Human Regular 0 units 07/28/17 16:30 Humulin R SC ACHS DEB Protocol Levetiracetam 500 mg 07/25/17 09:00 07/28/17 09:51 Keppra PO 500 mg Q12H DEB Administration Levothyroxine Sodium 50 mcg 07/05/17 06:30 07/28/17 06:21 Synthroid PO 50 mcg DAILY@0630 DEB Administration Lidocaine 1 ea 07/28/17 09:00 07/28/17 09:51 Lidoderm TD 1 ea DAILY DEB Administration Lisinopril 40 mg 07/19/17 12:45 07/28/17 09:52 Zestril PO 40 mg DAILY DEB Administration Losartan Potassium 25 mg 07/26/17 09:30 07/28/17 09:50 Cozaar PO 25 mg DAILY DEB Administration Sodium Bicarbonate 1,300 mg 06/30/17 17:00 07/02/17 16:23 Sodium Bicarbonate Tab PO 1,300 mg Q8 DEB Administration Spironolactone 25 mg 07/22/17 09:00 07/28/17 09:48 Aldactone PO 25 mg BID DEB Administration Thiamine HCl 100 mg 07/15/17 09:00 07/28/17 09:52 Vitamin B1 Tab PO 100 mg DAILY DEB Administration - Patient Studies Lab Studies: Microbiology Studies 07/06/17 19:20 Mycobacterial Culture - Preliminary Other: Please Indicate Lab Studies 07/28/17 07/28/17 07/28/17 Range/Units 05:43 04:30 04:30 WBC 8.7 (4.8-10.8) K/uL RBC 3.49 L (4.40-5.90) Mil/uL Hgb 10.2 L (12.0-18.0) g/dL Hct 32.3 L (35.0-51.0) % MCV 92.4 (80.0-94.0) fl MCH 29.2 (27.0-31.0) pg MCHC 31.6 L (33.0-37.0) g/dL RDW 18.5 H (11.5-14.5) % Plt Count 222 (130-400) K/uL Sodium 148 (132-148) mmol/l Potassium 4.0 (3.6-5.0) MMOL/L Chloride 111 H (98-107) mmol/L Carbon Dioxide 27 (22-30) mmol/L Anion Gap 14 (10-20) BUN 29 H (9-20) mg/dl Creatinine 2.6 H (0.8-1.5) mg/dl Est GFR ( Amer) 30 Est GFR (Non-Af Amer) 25 POC Glucose (mg/dL) 104 (65-110) mg/dL Random Glucose 110 (75-110) mg/dL Calcium 8.5 (8.4-10.2) mg/dL Total Bilirubin 0.4 (0.2-1.3) mg/dl AST 14 L (17-59) U/L ALT 25 (21-72) U/L Alkaline Phosphatase 150 H (38-126) U/L Total Protein 5.7 L (6.3-8.2) G/DL Albumin 2.5 L (3.5-5.0) g/dL Globulin 3.3 (2.2-3.9) gm/dL Albumin/Globulin Ratio 0.8 L (1.0-2.1) Thyroxine (T4) 5.77 (5.5-11.0) ug/dl TSH 3rd Generation 2.93 (0.46-4.68) mIU/ML 07/27/17 07/27/17 Range/Units 21:21 16:41 WBC (4.8-10.8) K/uL RBC (4.40-5.90) Mil/uL Hgb (12.0-18.0) g/dL Hct (35.0-51.0) % MCV (80.0-94.0) fl MCH (27.0-31.0) pg MCHC (33.0-37.0) g/dL RDW (11.5-14.5) % Plt Count (130-400) K/uL Sodium (132-148) mmol/l Potassium (3.6-5.0) MMOL/L Chloride (98-107) mmol/L Carbon Dioxide (22-30) mmol/L Anion Gap (10-20) BUN (9-20) mg/dl Creatinine (0.8-1.5) mg/dl Est GFR ( Amer) Est GFR (Non-Af Amer) POC Glucose (mg/dL) 156 H 147 H (65-110) mg/dL Random Glucose (75-110) mg/dL Calcium (8.4-10.2) mg/dL Total Bilirubin (0.2-1.3) mg/dl AST (17-59) U/L ALT (21-72) U/L Alkaline Phosphatase (38-126) U/L Total Protein (6.3-8.2) G/DL Albumin (3.5-5.0) g/dL Globulin (2.2-3.9) gm/dL Albumin/Globulin Ratio (1.0-2.1) Thyroxine (T4) (5.5-11.0) ug/dl TSH 3rd Generation (0.46-4.68) mIU/ML Laboratory Results - last 24 hr 07/27/17 07/27/17 07/28/17 16:41 21:21 04:30 WBC RBC Hgb Hct MCV MCH MCHC RDW Plt Count Sodium 148 Potassium 4.0 Chloride 111 H Carbon Dioxide 27 Anion Gap 14 BUN 29 H Creatinine 2.6 H Est GFR ( Amer) 30 Est GFR (Non-Af Amer) 25 POC Glucose (mg/dL) 147 H 156 H Random Glucose 110 Calcium 8.5 Total Bilirubin 0.4 AST 14 L ALT 25 Alkaline Phosphatase 150 H Total Protein 5.7 L Albumin 2.5 L Globulin 3.3 Albumin/Globulin Ratio 0.8 L Thyroxine (T4) 5.77 TSH 3rd Generation 2.93 07/28/17 07/28/17 04:30 05:43 WBC 8.7 RBC 3.49 L Hgb 10.2 L Hct 32.3 L MCV 92.4 MCH 29.2 MCHC 31.6 L RDW 18.5 H Plt Count 222 Sodium Potassium Chloride Carbon Dioxide Anion Gap BUN Creatinine Est GFR ( Amer) Est GFR (Non-Af Amer) POC Glucose (mg/dL) 104 Random Glucose Calcium Total Bilirubin AST ALT Alkaline Phosphatase Total Protein Albumin Globulin Albumin/Globulin Ratio Thyroxine (T4) TSH 3rd Generation Critical Care Progress Note - Nutrition Nutrition: Nutrition Category Date Time Status Dysphagia/Modified Consistency Diet [DIET] Diets 07/26/17 Breakfast Active
[2017-07-28] MEDS: diltiaZEM 240 mg/24 Hours CD Cap PO SCH (09:49)
[2017-07-28] MEDS: Bacitracin OINT 15GM TOP SCH (09:49)
[2017-07-28] MEDS: Epoetin Alfa 20000 UNIT/ML Inj SC SCH (09:53)
[2017-07-28] MEDS ORDERED: Dextrose 50% SYRINGE Inj (50 ml) IV PRN (12:03)
[2017-07-28] MEDS ORDERED: Glucagon Recombinant 1 mg Inj IM PRN (12:03)
--- NOTE | 2017-07-28 16:08 | RAD ---
HISTORY: Two COMPARISON: Multiple serial examinations preceding the most recent study: July 27, 2017. FINDINGS: LUNGS: Consolidative changes both lower lobes left greater than right. PLEURA: Bilateral pleural effusions left larger than right. CARDIOVASCULAR: Normal. OSSEOUS STRUCTURES: No significant abnormalities. VISUALIZED UPPER ABDOMEN: Normal. OTHER FINDINGS: None. IMPRESSION: No significant interval change compared to the prior examination(s).
--- NOTE | 2017-07-28 16:15 | CP.PCM.PN ---
Subjective - Date & Time of Evaluation Date of Evaluation: 07/28/17 Time of Evaluation: 06:50 - Subjective Subjective: Vital Signs: 37.4- 84-143/66- 22- 99% (4LNC) LEFT subclavian: patent, non-erythematous Salazar Catheter: yellow urine 66M resting, denies pain at RIGHT chest wall. Otherwise, denies SOB, and confirms BM. Objective - Vital Signs/Intake and Output Vital Signs (last 24 hours): Temp Pulse Resp BP Pulse Ox 36.6 C 77 16 138/62 100 07/28/17 16:12 07/28/17 16:12 07/28/17 16:12 07/28/17 16:12 07/28/17 16:12 Intake and Output: 07/28/17 07/28/17 06:59 18:59 Intake Total 450 Balance 450 - Medications Medications: Current Medications Acetylcysteine (Acetylcysteine 20%) 2 ml INH RBID [facility] Last Admin: 07/28/17 08:21 Dose: 2 ml Albuterol/Ipratropium (Duoneb 3 Mg/0.5 Mg (3 Ml) Ud) 3 ml INH RQ6 [facility] Last Admin: 07/28/17 12:59 Dose: 3 ml Amlodipine Besylate (Norvasc) 5 mg PO Q12H [facility] Last Admin: 07/28/17 09:51 Dose: 5 mg Aspirin (Ecotrin) 81 mg PO DAILY [facility] Last Admin: 07/18/17 09:23 Dose: Not Given Bacitracin (Bacitracin Oint) 1 applic TOP DAILY [facility] Last Admin: 07/28/17 09:49 Dose: 1 applic Calcium Acetate (Phoslo) 2,001 mg PO 0830,1200,1830 [facility] Last Admin: 07/14/17 12:26 Dose: 2,001 mg Dextrose (Dextrose 50% Inj) 0 ml IV STAT PRN; Protocol PRN Reason: Hypoglycemia Protocol Dextrose (Glutose 15) 0 gm PO ONCE PRN; Protocol PRN Reason: Hypoglycemia Protocol Dextrose (Dextrose 50% Inj) 50 ml IVP Q1H PRN PRN Reason: Hypoglycemia Dextrose (Dextrose 50% Inj) 0 ml IV STAT PRN; Protocol PRN Reason: Hypoglycemia Protocol Dextrose (Glutose 15) 0 gm PO ONCE PRN; Protocol PRN Reason: Hypoglycemia Protocol Diltiazem HCl (Cardizem Cd) 240 mg PO DAILY [facility] Last Admin: 07/28/17 09:49 Dose: 240 mg Epoetin Roel (Procrit) 14,000 unit SC MWF [facility] Last Admin: 07/28/17 09:53 Dose: 14,000 unit Fluconazole (Diflucan) 200 mg PO DAILY [facility] PRN Reason: Protocol Last Admin: 07/28/17 09:50 Dose: 200 mg Furosemide (Lasix) 40 mg IVP BID [facility] Last Admin: 07/28/17 16:02 Dose: 40 mg Glucagon (Glucagen Diagnostic Kit) 0 mg IM STAT PRN; Protocol PRN Reason: Hypoglycemia Protocol Glucagon (Glucagen Diagnostic Kit) 0 mg IM STAT PRN; Protocol PRN Reason: Hypoglycemia Protocol Heparin Sodium (Porcine) (Heparin) 5,000 units SC Q12 [facility] PRN Reason: Protocol Last Admin: 07/28/17 09:50 Dose: 5,000 units Hydralazine HCl (Apresoline) 50 mg PO Q8 [facility] Last Admin: 07/28/17 16:01 Dose: 50 mg Insulin Human Lispro (Humalog) 0 units SC [facility] PRN Reason: Protocol Last Admin: 07/28/17 12:08 Dose: Not Given Insulin Human Regular (Humulin R) 0 units SC [facility] PRN Reason: Protocol Levetiracetam (Keppra) 500 mg PO Q12H [facility] Last Admin: 07/28/17 09:51 Dose: 500 mg Levothyroxine Sodium (Synthroid) 50 mcg PO DAILY@0630 [facility] Last Admin: 07/28/17 06:21 Dose: 50 mcg Lidocaine (Lidoderm) 2 ea TD DAILY [facility] Lisinopril (Zestril) 40 mg PO DAILY [facility] Last Admin: 07/28/17 09:52 Dose: 40 mg Losartan Potassium (Cozaar) 25 mg PO DAILY [facility] Last Admin: 07/28/17 09:50 Dose: 25 mg Sodium Bicarbonate (Sodium Bicarbonate Tab) 1,300 mg PO Q8 [facility] Last Admin: 07/02/17 16:23 Dose: 1,300 mg Spironolactone (Aldactone) 25 mg PO BID [facility] Last Admin: 07/28/17 16:01 Dose: 25 mg Thiamine HCl (Vitamin B1 Tab) 100 mg PO DAILY [facility] Last Admin: 07/28/17 09:52 Dose: 100 mg - Labs Labs: 07/28/17 04:30 07/28/17 04:30 PT 15.3 Seconds (9.8-13.1) H 07/18/17 05:30 INR 1.4 (0.9-1.2) H 07/18/17 05:30 APTT 34.2 Seconds (25.6-37.1) 07/18/17 05:30 - Constitutional Appears: Non-toxic, No Acute Distress - Head Exam Head Exam: ATRAUMATIC, NORMAL INSPECTION - Eye Exam Eye Exam: EOMI, Normal appearance - ENT Exam ENT Exam: Mucous Membranes Moist, Normal Exam - Respiratory Exam Respiratory Exam: Decreased Breath Sounds (bilateral L>R), NORMAL BREATHING PATTERN. absent: Rales, Wheezes - Cardiovascular Exam Cardiovascular Exam: REGULAR RHYTHM, +S1, +S2 - GI/Abdominal Exam GI & Abdominal Exam: Soft, Normal Bowel Sounds. absent: Tenderness - Extremities Exam Extremities Exam: Normal Capillary Refill. absent: Pedal Edema - Neurological Exam Neurological Exam: Alert, Awake - Psychiatric Exam Psychiatric exam: Normal Affect - Skin Skin Exam: Dry, Warm Assessment and Plan - Assessment and Plan (Free Text) Assessment: 66M currently stable, tachypnea resolved, CXR shows stability in effusions. Goals remain to continue with strengthening, nutrition, and pleural effusion control. At this time patient pt may be transferred to Telemetry on pulmonary function bed. Plan: 1) Pulmonary: Acute respiratory failure secondary to recurrent pleural effusions thought to be caused by nephrotic syndrome. Continuing to do well on 4LNC with CXR showing stable aeration of LEFT lung. - 4L nasal cannula - c/w Chest PT Q4H - Suctioning to induce coughing and removal of secretions Q4H - c/w Pulmonary recommendations for mucomyst, bronchodilator. - Transfer to Telemetry - Will send for IR thoracentesis as clinically indicated CT Surgery Consult (Dr Gannon) appreciated: Chest tubes discontinued, IR for thoracentesis PRN recollection. CT surgery sign off. Pulmonary Consult (Dr Raymond)appreciated: Chest PT, bronchodilators, mucomyst, c /w current management ID Consult (Dr Dolan) appreciated: d/c Cefepime, culture if febrile, c/w Fluconazole PO for 3wks more (07/25/17) Nephrology Consult (Dr Luz) appreciated: c/w medically controlling nephrotic syndrome with ACEI/CCB, Aldactone and Lasix started (monitor for hyperkalemia), started ARB yesterday. 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 f/u Nephrology recs, patient with hypomagnesemia and hypokalemia, both replaced. It would seem potassium levels are not an issue with current lasix regimen combined with ACEI/ARBs/and spironolactone. - Aspirin stopped in anticipation of the need for thoracentesis Nephrology Consult (Dr Luz) appreciated: Add ARB, c/w ACEI/Cardiazem/ Spironolactone, Hydralazine, Lasix 3) Renal: Current regimen is tentatively working for nephrotic syndrome. 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 NO EVIDENCE OF MONOCLONAL LIGHT OR HEAVY CHAIN- RELATED RENAL DISEASE. Renal duplex: no renal vein thrombosis - CKD stage 4: f/u Nephrology recs, monitor BUN/Cr - Anemia: remaining stable but no increase, EPO MWF 4) Endocrinology: Stable, improving, f/u endocrinology recommendations, last TSH - 3.31, last Prolactin 27.1 - Prolactinemia: improving, monitor for now (last 27.1) - Hypothyroid: TSH stabilized, c/w Synthroid (last TSH 3.31) - DMII: SSI Lispro, Accu-checks, Hypoglycemic Bundle 5) Infectious Disease: Improving, no clinical indication of infection at this time - HAP: Prolactin: 0.21, no anitbiotics at this time, culture if febrile - c/w Fluconazole for suspected fungal infection Infectious Disease Consult (Dr Dolan) appreciated: c/w Fluconazole at this time 6) Neurology: Stable - c/w Keppra 500mg, PO, Q12H Neurology Consult (Dr Nicholas) appreciated: c/w Keppra, ASA being held, signed off 7) Skin: Overall doing very well thanks to the great care from nursing - Skin tear: healing site on LEFT dorsum of hand, healing on lower back x2, - Sacral-Stage I: healing - c/w heal boots - c/w pressure off-loading 8) Deconditioning - PT/OT, all activity as tolerated - Modified Dysphagia with thin liquids - Consult Dietary: Recommend 60g Protein and modified dysphagia 9) DVT prophylaxis - Heparin 5,000U, SC, Q12H
[2017-07-28] MEDS ORDERED: Insulin Regular 100 units/ml SC SCH (16:30)
--- NOTE | 2017-07-28 19:00 | CP.PCM.PN ---
Subjective - Date & Time of Evaluation Date of Evaluation: 07/28/17 Time of Evaluation: 12:20 - Subjective Subjective: Patient tolerating diet; still with some pain at site of previous R chest tube insertion; no nausea/vomiting; some sob; Objective - Vital Signs/Intake and Output Vital Signs (last 24 hours): Temp Pulse Resp BP Pulse Ox 98 F 77 16 138/62 100 07/28/17 16:12 07/28/17 16:12 07/28/17 16:12 07/28/17 16:12 07/28/17 16:12 Intake and Output: 07/28/17 07/29/17 18:59 06:59 Intake Total 650 Output Total 850 Balance -200 - Medications Medications: Current Medications Acetylcysteine (Acetylcysteine 20%) 2 ml INH RBID [facility] Last Admin: 07/28/17 08:21 Dose: 2 ml Albuterol/Ipratropium (Duoneb 3 Mg/0.5 Mg (3 Ml) Ud) 3 ml INH RQ6 [facility] Last Admin: 07/28/17 12:59 Dose: 3 ml Amlodipine Besylate (Norvasc) 5 mg PO Q12H [facility] Last Admin: 07/28/17 09:51 Dose: 5 mg Aspirin (Ecotrin) 81 mg PO DAILY [facility] Last Admin: 07/18/17 09:23 Dose: Not Given Bacitracin (Bacitracin Oint) 1 applic TOP DAILY [facility] Last Admin: 07/28/17 09:49 Dose: 1 applic Calcium Acetate (Phoslo) 2,001 mg PO 0830,1200,1830 [facility] Last Admin: 07/14/17 12:26 Dose: 2,001 mg Dextrose (Dextrose 50% Inj) 0 ml IV STAT PRN; Protocol PRN Reason: Hypoglycemia Protocol Dextrose (Glutose 15) 0 gm PO ONCE PRN; Protocol PRN Reason: Hypoglycemia Protocol Dextrose (Dextrose 50% Inj) 50 ml IVP Q1H PRN PRN Reason: Hypoglycemia Dextrose (Dextrose 50% Inj) 0 ml IV STAT PRN; Protocol PRN Reason: Hypoglycemia Protocol Dextrose (Glutose 15) 0 gm PO ONCE PRN; Protocol PRN Reason: Hypoglycemia Protocol Diltiazem HCl (Cardizem Cd) 240 mg PO DAILY [facility] Last Admin: 07/28/17 09:49 Dose: 240 mg Epoetin Roel (Procrit) 14,000 unit SC MWF [facility] Last Admin: 07/28/17 09:53 Dose: 14,000 unit Fluconazole (Diflucan) 200 mg PO DAILY [facility] PRN Reason: Protocol Last Admin: 07/28/17 09:50 Dose: 200 mg Furosemide (Lasix) 40 mg IVP BID [facility] Last Admin: 07/28/17 16:02 Dose: 40 mg Glucagon (Glucagen Diagnostic Kit) 0 mg IM STAT PRN; Protocol PRN Reason: Hypoglycemia Protocol Glucagon (Glucagen Diagnostic Kit) 0 mg IM STAT PRN; Protocol PRN Reason: Hypoglycemia Protocol Heparin Sodium (Porcine) (Heparin) 5,000 units SC Q12 [facility] PRN Reason: Protocol Last Admin: 07/28/17 09:50 Dose: 5,000 units Hydralazine HCl (Apresoline) 50 mg PO Q8 [facility] Last Admin: 07/28/17 16:01 Dose: 50 mg Insulin Human Lispro (Humalog) 0 units SC [facility] PRN Reason: Protocol Last Admin: 07/28/17 17:41 Dose: Not Given Insulin Human Regular (Humulin R) 0 units SC [facility] PRN Reason: Protocol Levetiracetam (Keppra) 500 mg PO Q12H [facility] Last Admin: 07/28/17 09:51 Dose: 500 mg Levothyroxine Sodium (Synthroid) 50 mcg PO DAILY@0630 [facility] Last Admin: 07/28/17 06:21 Dose: 50 mcg Lidocaine (Lidoderm) 2 ea TD DAILY [facility] Lisinopril (Zestril) 40 mg PO DAILY [facility] Last Admin: 07/28/17 09:52 Dose: 40 mg Losartan Potassium (Cozaar) 25 mg PO DAILY [facility] Last Admin: 07/28/17 09:50 Dose: 25 mg Sodium Bicarbonate (Sodium Bicarbonate Tab) 1,300 mg PO Q8 [facility] Last Admin: 07/02/17 16:23 Dose: 1,300 mg Spironolactone (Aldactone) 25 mg PO BID [facility] Last Admin: 07/28/17 16:01 Dose: 25 mg Thiamine HCl (Vitamin B1 Tab) 100 mg PO DAILY [facility] Last Admin: 07/28/17 09:52 Dose: 100 mg - Labs Labs: 07/28/17 04:30 07/28/17 04:30 PT 15.3 Seconds (9.8-13.1) H 07/18/17 05:30 INR 1.4 (0.9-1.2) H 07/18/17 05:30 APTT 34.2 Seconds (25.6-37.1) 07/18/17 05:30 - Constitutional Appears: Non-toxic, No Acute Distress - Eye Exam Eye Exam: absent: Scleral icterus - ENT Exam ENT Exam: Mucous Membranes Moist - Respiratory Exam Respiratory Exam: Clear to Ausculation Bilateral. absent: Respiratory Distress Additional comments: tachypneic; - Cardiovascular Exam Cardiovascular Exam: RRR, +S1, +S2 - GI/Abdominal Exam GI & Abdominal Exam: Soft. absent: Distended, Tenderness - Extremities Exam Additional comments: edema of dependent areas; - Neurological Exam Neurological Exam: Alert, Awake - Psychiatric Exam Psychiatric exam: absent: Agitated - Skin Skin Exam: Warm. absent: Cyanosis Assessment and Plan (1) Acute renal failure Assessment & Plan: ATN resolved; recent increases in serum creatinine hemodynamically mediated in the setting of aggressive KEVIN blockade and diuretics; will monitor closely; may need to decrease diuretics in near future if serum creat continues to increase; avoid any nephrotoxic agents (no NSAIDS for pain); Status: Acute (2) Nephrotic syndrome Assessment & Plan: Severe nephrotic syndrome with recurrent pleural effusions being attributed to it; continuing with all possible measures to decrease proteinuria (KEVIN blockade , diltiazem, BP control); will likely not be able to increase losartan dose any further; Status: Chronic (3) Pleural effusion Status: Chronic (4) Hypertensive CKD (chronic kidney disease) Assessment & Plan: BP much improved; continue currents meds; Status: Acute (5) Chronic kidney disease, stage 3 (moderate) Assessment & Plan: Baseline serum creat ~1.9; overall poor renal prognosis; monitor; Status: Chronic (6) Hypothermia Status: Acute (7) Altered mental status Status: Acute (8) SIRS (systemic inflammatory response syndrome) Status: Acute (9) Anemia Assessment & Plan: Hgb stable, continue EPO qMWF; Status: Chronic (10) Monoclonal gammopathy Status: Chronic (11) Hypernatremia Assessment & Plan: Fluctuating; relatively mild; encourage PO water intake; Status: Acute
[2017-07-29] MEDS: Albuterol-Ipratrop 3 mg / 0.5 (3 ml) UD INH SCH ×4 (01:00→19:00)
--- NOTE | 2017-07-29 04:46 | PN ---
DATE: LOCATION: Room 432, ICU. SUBJECTIVE: This is a 66-year-old male with recent acute respiratory failure and underlying pleural effusion with recent discontinuation of the chest tubes as noted and is being followed closely for metabolic management. His glycemic levels are fluctuating but much improved at this time and the latest glucose levels have ranged from 104-156 mg/dL. His latest chemistries showed a BUN of 29, sodium 148, potassium 4.0, chloride 111, CO2 of 27, glucose 110 and creatinine 2.6. His latest thyroid studies showed a T4 of 5.77 with a TSH of 2.93. So at this time, we will continue the levothyroxine given as 50 mcg once daily as ordered. We will titrate incrementally as indicated to optimize metabolic control. We will continue the low-dose correction scale using regular insulin as ordered. We will follow and advise accordingly. Bettina Mann MD
--- NOTE | 2017-07-29 06:17 | CP.PCM.PN ---
Subjective - Date & Time of Evaluation Date of Evaluation: 07/29/17 Time of Evaluation: 06:17 - Subjective Subjective: Vital Signs: 36.7- 80-154/68- 18- 100% (4LNC) LEFT subclavian: patent, non-erythematous Salazar Catheter: yellow urine, will be d/c'd 66M resting, denies pain at RIGHT chest wall. Otherwise, denies SOB, and confirms BM. Objective - Vital Signs/Intake and Output Vital Signs (last 24 hours): Temp Pulse Resp BP Pulse Ox 36.7 C 79 18 151/55 H 97 07/29/17 05:28 07/29/17 05:28 07/29/17 05:28 07/29/17 05:28 07/29/17 05:28 Intake and Output: 07/28/17 07/29/17 18:59 06:59 Intake Total 650 50 Output Total 850 Balance -200 50 - Medications Medications: Current Medications Acetylcysteine (Acetylcysteine 20%) 2 ml INH RBID [facility] Last Admin: 07/28/17 19:07 Dose: 2 ml Albuterol/Ipratropium (Duoneb 3 Mg/0.5 Mg (3 Ml) Ud) 3 ml INH RQ6 [facility] Last Admin: 07/29/17 01:00 Dose: 3 ml Amlodipine Besylate (Norvasc) 5 mg PO Q12H [facility] Last Admin: 07/28/17 20:26 Dose: 5 mg Bacitracin (Bacitracin Oint) 1 applic TOP DAILY [facility] Last Admin: 07/28/17 09:49 Dose: 1 applic Calcium Acetate (Phoslo) 2,001 mg PO 0830,1200,1830 [facility] Last Admin: 07/14/17 12:26 Dose: 2,001 mg Dextrose (Dextrose 50% Inj) 0 ml IV STAT PRN; Protocol PRN Reason: Hypoglycemia Protocol Dextrose (Glutose 15) 0 gm PO ONCE PRN; Protocol PRN Reason: Hypoglycemia Protocol Dextrose (Dextrose 50% Inj) 50 ml IVP Q1H PRN PRN Reason: Hypoglycemia Dextrose (Dextrose 50% Inj) 0 ml IV STAT PRN; Protocol PRN Reason: Hypoglycemia Protocol Dextrose (Glutose 15) 0 gm PO ONCE PRN; Protocol PRN Reason: Hypoglycemia Protocol Diltiazem HCl (Cardizem Cd) 240 mg PO DAILY [facility] Last Admin: 07/28/17 09:49 Dose: 240 mg Epoetin Roel (Procrit) 14,000 unit SC MWF [facility] Last Admin: 07/28/17 09:53 Dose: 14,000 unit Fluconazole (Diflucan) 200 mg PO DAILY [facility] PRN Reason: Protocol Last Admin: 07/28/17 09:50 Dose: 200 mg Furosemide (Lasix) 40 mg IVP BID [facility] Last Admin: 07/28/17 16:02 Dose: 40 mg Glucagon (Glucagen Diagnostic Kit) 0 mg IM STAT PRN; Protocol PRN Reason: Hypoglycemia Protocol Glucagon (Glucagen Diagnostic Kit) 0 mg IM STAT PRN; Protocol PRN Reason: Hypoglycemia Protocol Heparin Sodium (Porcine) (Heparin) 5,000 units SC Q12 [facility] PRN Reason: Protocol Last Admin: 07/28/17 21:17 Dose: 5,000 units Hydralazine HCl (Apresoline) 50 mg PO Q8 [facility] Last Admin: 07/29/17 02:50 Dose: 50 mg Insulin Human Regular (Humulin R) 0 units SC ACHS [facility] PRN Reason: Protocol Levetiracetam (Keppra) 500 mg PO Q12H [facility] Last Admin: 07/28/17 20:26 Dose: 500 mg Levothyroxine Sodium (Synthroid) 50 mcg PO DAILY@0630 [facility] Last Admin: 07/28/17 06:21 Dose: 50 mcg Lidocaine (Lidoderm) 2 ea TD DAILY [facility] Lisinopril (Zestril) 40 mg PO DAILY [facility] Last Admin: 07/28/17 09:52 Dose: 40 mg Losartan Potassium (Cozaar) 25 mg PO DAILY [facility] Last Admin: 07/28/17 09:50 Dose: 25 mg Sodium Bicarbonate (Sodium Bicarbonate Tab) 1,300 mg PO Q8 [facility] Last Admin: 07/02/17 16:23 Dose: 1,300 mg Spironolactone (Aldactone) 25 mg PO BID [facility] Last Admin: 07/28/17 16:01 Dose: 25 mg Thiamine HCl (Vitamin B1 Tab) 100 mg PO DAILY [facility] Last Admin: 07/28/17 09:52 Dose: 100 mg - Labs Labs: 07/28/17 04:30 07/28/17 04:30 PT 15.3 Seconds (9.8-13.1) H 07/18/17 05:30 INR 1.4 (0.9-1.2) H 07/18/17 05:30 APTT 34.2 Seconds (25.6-37.1) 07/18/17 05:30 - Constitutional Appears: Non-toxic, No Acute Distress - Head Exam Head Exam: ATRAUMATIC, NORMAL INSPECTION - Eye Exam Eye Exam: EOMI, Normal appearance - ENT Exam ENT Exam: Mucous Membranes Moist - Respiratory Exam Respiratory Exam: Decreased Breath Sounds (bilateral , L>R) - Cardiovascular Exam Cardiovascular Exam: REGULAR RHYTHM, +S1, +S2 - GI/Abdominal Exam GI & Abdominal Exam: Soft, Normal Bowel Sounds. absent: Tenderness - Extremities Exam Extremities Exam: Normal Capillary Refill, Normal Inspection - Neurological Exam Neurological Exam: Alert, Awake - Psychiatric Exam Psychiatric exam: Normal Affect - Skin Skin Exam: Dry, Warm Assessment and Plan - Assessment and Plan (Free Text) Assessment: 66M currently stable, tachypnea resolved, CXR shows stability in effusions. Goals remain to continue with strengthening, nutrition, and pleural effusion control. Salazar discontinued and patient declining to work with Physical Therapy. Plan: 1) Pulmonary: Acute respiratory failure secondary to recurrent pleural effusions thought to be caused by nephrotic syndrome. Continuing to do well on 4LNC with CXR showing stable aeration of LEFT lung. - 4L nasal cannula - c/w Chest PT Q4H - Suctioning to induce coughing and removal of secretions Q4H - c/w Pulmonary recommendations for mucomyst, bronchodilator. - Will send for IR thoracentesis as clinically indicated CT Surgery Consult (Dr Gannon) appreciated: Chest tubes discontinued, IR for thoracentesis PRN recollection. CT surgery sign off. Pulmonary Consult (Dr Raymond)appreciated: Chest PT, bronchodilators, mucomyst, c /w current management ID Consult (Dr Dolan) appreciated: d/c Cefepime, culture if febrile, c/w Fluconazole PO for 3wks more (07/25/17) Nephrology Consult (Dr Luz) appreciated: c/w medically controlling nephrotic syndrome with ACEI/CCB, Aldactone and Lasix started (monitor for hyperkalemia), started ARB yesterday. 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 f/u Nephrology recs, patient with hypomagnesemia and hypokalemia, both replaced. It would seem potassium levels are not an issue with current lasix regimen combined with ACEI/ARBs/and spironolactone. - Aspirin stopped in anticipation of the need for thoracentesis Nephrology Consult (Dr Luz) appreciated: Add ARB, c/w ACEI/Cardiazem/ Spironolactone, Hydralazine, Lasix 3) Renal: Current regimen is tentatively working for nephrotic syndrome. 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 NO EVIDENCE OF MONOCLONAL LIGHT OR HEAVY CHAIN- RELATED RENAL DISEASE. Renal duplex: no renal vein thrombosis - CKD stage 4: f/u Nephrology recs, monitor BUN/Cr - Anemia: remaining stable but no increase, EPO MWF - d/c Salazar catheter today w/ TOV 4) Endocrinology: Stable, improving, f/u endocrinology recommendations, last TSH - 3.31, last Prolactin 27.1 - Prolactinemia: improving, monitor for now (last 27.1) - Hypothyroid: TSH stabilized, c/w Synthroid (last TSH 3.31) - DMII: SSI Lispro, Accu-checks, Hypoglycemic Bundle 5) Infectious Disease: Improving, no clinical indication of infection at this time - HAP: Prolactin: 0.21, no anitbiotics at this time, culture if febrile - c/w Fluconazole for suspected fungal infection Infectious Disease Consult (Dr Dolan) appreciated: c/w Fluconazole at this time 6) Neurology: Stable - c/w Keppra 500mg, PO, Q12H Neurology Consult (Dr Nicholas) appreciated: c/w Keppra, ASA being held, signed off 7) Skin: Overall doing very well thanks to the great care from nursing - Skin tear: healing site on LEFT dorsum of hand, healing on lower back x2, - Sacral-Stage I: healing - c/w heal boots - c/w pressure off-loading 8) Deconditioning - PT/OT, all activity as tolerated - Modified Dysphagia with thin liquids - Consult Dietary: Recommend 60g Protein and modified dysphagia 9) DVT prophylaxis - Heparin 5,000U, SC, Q12H
[2017-07-29] MEDS: Acetylcysteine 20% Inhal Soln (4ml) INH SCH ×2 (07:26→19:00)
--- NOTE | 2017-07-29 09:46 | CP.PCM.PN ---
Subjective - Date & Time of Evaluation Date of Evaluation: 07/29/17 Time of Evaluation: 09:46 - Subjective Subjective: NO NEW CLINICAL FINDINGS CXR CONTINUES TO SHOW PLEURAL EFFUSIONS BUT UNCHANGED FROM PRIOR FILMS WILL CONTINUE CURRENT RX WILL FOLLOW WITH YOU Objective - Vital Signs/Intake and Output Vital Signs (last 24 hours): Temp Pulse Resp BP Pulse Ox 97.3 F L 80 18 154/68 H 100 07/29/17 08:00 07/29/17 08:00 07/29/17 08:00 07/29/17 08:00 07/29/17 08:00 Intake and Output: 07/29/17 07/29/17 06:59 18:59 Intake Total 50 Balance 50 - Medications Medications: Current Medications Acetylcysteine (Acetylcysteine 20%) 2 ml INH RBID [facility] Last Admin: 07/29/17 07:26 Dose: 2 ml Albuterol/Ipratropium (Duoneb 3 Mg/0.5 Mg (3 Ml) Ud) 3 ml INH RQ6 [facility] Last Admin: 07/29/17 07:26 Dose: 3 ml Amlodipine Besylate (Norvasc) 5 mg PO Q12H [facility] Last Admin: 07/28/17 20:26 Dose: 5 mg Bacitracin (Bacitracin Oint) 1 applic TOP DAILY [facility] Last Admin: 07/28/17 09:49 Dose: 1 applic Calcium Acetate (Phoslo) 2,001 mg PO 0830,1200,1830 [facility] Last Admin: 07/14/17 12:26 Dose: 2,001 mg Dextrose (Dextrose 50% Inj) 0 ml IV STAT PRN; Protocol PRN Reason: Hypoglycemia Protocol Dextrose (Glutose 15) 0 gm PO ONCE PRN; Protocol PRN Reason: Hypoglycemia Protocol Dextrose (Dextrose 50% Inj) 50 ml IVP Q1H [facility]N PRN Reason: Hypoglycemia Dextrose (Dextrose 50% Inj) 0 ml IV STAT PRN; Protocol PRN Reason: Hypoglycemia Protocol Dextrose (Glutose 15) 0 gm PO ONCE PRN; Protocol PRN Reason: Hypoglycemia Protocol Diltiazem HCl (Cardizem Cd) 240 mg PO DAILY [facility] Last Admin: 07/28/17 09:49 Dose: 240 mg Epoetin Roel (Procrit) 14,000 unit SC MWF [facility] Last Admin: 07/28/17 09:53 Dose: 14,000 unit Fluconazole (Diflucan) 200 mg PO DAILY [facility] PRN Reason: Protocol Last Admin: 07/28/17 09:50 Dose: 200 mg Furosemide (Lasix) 40 mg IVP BID [facility] Last Admin: 07/28/17 16:02 Dose: 40 mg Glucagon (Glucagen Diagnostic Kit) 0 mg IM STAT PRN; Protocol PRN Reason: Hypoglycemia Protocol Glucagon (Glucagen Diagnostic Kit) 0 mg IM STAT PRN; Protocol PRN Reason: Hypoglycemia Protocol Heparin Sodium (Porcine) (Heparin) 5,000 units SC Q12 [facility] PRN Reason: Protocol Last Admin: 07/28/17 21:17 Dose: 5,000 units Hydralazine HCl (Apresoline) 50 mg PO Q8 [facility] Last Admin: 07/29/17 02:50 Dose: 50 mg Insulin Human Regular (Humulin R) 0 units SC ACHS [facility] PRN Reason: Protocol Levetiracetam (Keppra) 500 mg PO Q12H [facility] Last Admin: 07/28/17 20:26 Dose: 500 mg Levothyroxine Sodium (Synthroid) 50 mcg PO DAILY@0630 [facility] Last Admin: 07/28/17 06:21 Dose: 50 mcg Lidocaine (Lidoderm) 2 ea TD DAILY [facility] Lisinopril (Zestril) 40 mg PO DAILY [facility] Last Admin: 07/28/17 09:52 Dose: 40 mg Losartan Potassium (Cozaar) 25 mg PO DAILY [facility] Last Admin: 07/28/17 09:50 Dose: 25 mg Sodium Bicarbonate (Sodium Bicarbonate Tab) 1,300 mg PO Q8 [facility] Last Admin: 07/02/17 16:23 Dose: 1,300 mg Spironolactone (Aldactone) 25 mg PO BID [facility] Last Admin: 07/28/17 16:01 Dose: 25 mg Thiamine HCl (Vitamin B1 Tab) 100 mg PO DAILY [facility] Last Admin: 07/28/17 09:52 Dose: 100 mg - Labs Labs: 07/28/17 04:30 07/28/17 04:30 PT 15.3 Seconds (9.8-13.1) H 07/18/17 05:30 INR 1.4 (0.9-1.2) H 07/18/17 05:30 APTT 34.2 Seconds (25.6-37.1) 07/18/17 05:30
[2017-07-29] MEDS: Insulin Regular 100 units/ml SC SCH ×4 (09:55→22:25)
[2017-07-29] MEDS: Levothyroxine 50 MCG TAB PO SCH (09:56)
[2017-07-29] MEDS: Lidocaine 5% Patch TD SCH (09:57)
[2017-07-29] MEDS: diltiaZEM 240 mg/24 Hours CD Cap PO SCH (09:58)
[2017-07-29 10:59] LABS: CALCIUM 8.6 mg/dL (8.4-10.2)
--- NOTE | 2017-07-29 11:05 | RAD ---
PROCEDURE: CHEST RADIOGRAPH, 1 VIEW HISTORY: bilateral effusions COMPARISON: Multiple serial examinations preceding the most recent study: July 28, 2017. FINDINGS: LUNGS: Consolidative changes primarily affecting left lower lobe, lingula and to lesser extent right lower lobe. PLEURA: Stable bilateral pleural effusions. CARDIOVASCULAR: No radiographic findings to suggest acute or significant cardiovascular disease. PICC line in satisfactory position OSSEOUS STRUCTURES: No significant abnormalities. VISUALIZED UPPER ABDOMEN: Normal. OTHER FINDINGS: None. IMPRESSION: No significant interval change compared to the prior examination(s).
[2017-07-29] MEDS: Bacitracin OINT 15GM TOP SCH (13:20)
--- NOTE | 2017-07-29 21:20 | CP.PCM.PN ---
Subjective - Date & Time of Evaluation Date of Evaluation: 07/29/17 Time of Evaluation: 11:45 - Subjective Subjective: Patient tolerating diet; not giving much detail on ROS; still with pain on R lateral chest; Objective - Vital Signs/Intake and Output Vital Signs (last 24 hours): Temp Pulse Resp BP Pulse Ox 98.3 F 78 16 141/62 95 07/29/17 20:06 07/29/17 20:06 07/29/17 20:06 07/29/17 20:08 07/29/17 20:06 - Medications Medications: Current Medications Acetylcysteine (Acetylcysteine 20%) 2 ml INH RBID [facility] Last Admin: 07/29/17 19:00 Dose: 2 ml Albuterol/Ipratropium (Duoneb 3 Mg/0.5 Mg (3 Ml) Ud) 3 ml INH RQ6 [facility] Last Admin: 07/29/17 19:00 Dose: 3 ml Amlodipine Besylate (Norvasc) 5 mg PO Q12H [facility] Last Admin: 07/29/17 20:03 Dose: 5 mg Bacitracin (Bacitracin Oint) 1 applic TOP DAILY [facility] Last Admin: 07/29/17 13:20 Dose: Not Given Calcium Acetate (Phoslo) 2,001 mg PO 0830,1200,1830 [facility] Last Admin: 07/14/17 12:26 Dose: 2,001 mg Dextrose (Dextrose 50% Inj) 0 ml IV STAT PRN; Protocol PRN Reason: Hypoglycemia Protocol Dextrose (Glutose 15) 0 gm PO ONCE PRN; Protocol PRN Reason: Hypoglycemia Protocol Dextrose (Dextrose 50% Inj) 50 ml IVP Q1H PRN PRN Reason: Hypoglycemia Dextrose (Dextrose 50% Inj) 0 ml IV STAT PRN; Protocol PRN Reason: Hypoglycemia Protocol Dextrose (Glutose 15) 0 gm PO ONCE PRN; Protocol PRN Reason: Hypoglycemia Protocol Diltiazem HCl (Cardizem Cd) 240 mg PO DAILY [facility] Last Admin: 07/29/17 09:58 Dose: 240 mg Epoetin Roel (Procrit) 14,000 unit SC MWF [facility] Last Admin: 07/28/17 09:53 Dose: 14,000 unit Fluconazole (Diflucan) 200 mg PO DAILY [facility] PRN Reason: Protocol Last Admin: 07/29/17 09:58 Dose: 200 mg Furosemide (Lasix) 40 mg IVP BID [facility] Last Admin: 07/29/17 20:08 Dose: 40 mg Glucagon (Glucagen Diagnostic Kit) 0 mg IM STAT PRN; Protocol PRN Reason: Hypoglycemia Protocol Glucagon (Glucagen Diagnostic Kit) 0 mg IM STAT PRN; Protocol PRN Reason: Hypoglycemia Protocol Heparin Sodium (Porcine) (Heparin) 5,000 units SC Q12 [facility] PRN Reason: Protocol Last Admin: 07/29/17 20:05 Dose: 5,000 units Hydralazine HCl (Apresoline) 50 mg PO Q8 [facility] Last Admin: 07/29/17 20:03 Dose: 50 mg Insulin Human Regular (Humulin R) 0 units SC ACHS [facility] PRN Reason: Protocol Last Admin: 07/29/17 18:30 Dose: Not Given Levetiracetam (Keppra) 500 mg PO Q12H [facility] Last Admin: 07/29/17 20:05 Dose: 500 mg Levothyroxine Sodium (Synthroid) 50 mcg PO DAILY@0630 [facility] Last Admin: 07/29/17 09:56 Dose: Not Given Lidocaine (Lidoderm) 2 ea TD DAILY [facility] Last Admin: 07/29/17 09:57 Dose: 2 ea Lisinopril (Zestril) 40 mg PO DAILY [facility] Last Admin: 07/29/17 10:00 Dose: 40 mg Losartan Potassium (Cozaar) 25 mg PO DAILY [facility] Last Admin: 07/29/17 09:59 Dose: 25 mg Sodium Bicarbonate (Sodium Bicarbonate Tab) 1,300 mg PO Q8 [facility] Last Admin: 07/02/17 16:23 Dose: 1,300 mg Spironolactone (Aldactone) 25 mg PO BID [facility] Last Admin: 07/29/17 20:05 Dose: 25 mg Thiamine HCl (Vitamin B1 Tab) 100 mg PO DAILY [facility] Last Admin: 07/29/17 10:00 Dose: 100 mg - Labs Labs: 07/28/17 04:30 07/29/17 10:25 PT 15.3 Seconds (9.8-13.1) H 07/18/17 05:30 INR 1.4 (0.9-1.2) H 07/18/17 05:30 APTT 34.2 Seconds (25.6-37.1) 07/18/17 05:30 - Constitutional Appears: Non-toxic, No Acute Distress - Eye Exam Eye Exam: absent: Scleral icterus - ENT Exam ENT Exam: Mucous Membranes Moist - Respiratory Exam Respiratory Exam: Clear to Ausculation Bilateral. absent: Respiratory Distress - Cardiovascular Exam Cardiovascular Exam: RRR, +S1, +S2 - GI/Abdominal Exam GI & Abdominal Exam: Soft. absent: Distended, Tenderness - Extremities Exam Additional comments: edema of dependent areas, otherwise stable; - Neurological Exam Neurological Exam: Alert, Awake - Psychiatric Exam Psychiatric exam: absent: Agitated, Normal Mood - Skin Skin Exam: Warm. absent: Cyanosis Assessment and Plan (1) Chronic kidney disease, stage 3 (moderate) Assessment & Plan: CKD IIIB, stable renal function on current regimen of KEVIN blockade and diuretics ; goal is to control proteinuria in the setting of severe nephrotic syndrome that is likely contributing to recurrent pleural effusions; will repeat 24 hr urine protein to look for improvement; Status: Chronic (2) Acute renal failure Status: Resolved (3) Nephrotic syndrome Assessment & Plan: see above; further increase in losartan will result in decreased GFR and it's consequences, will consider after repeating 24 hr urine protein; Status: Chronic (4) Pleural effusion Assessment & Plan: recurrent; reported as stable on CXR; monitor; Status: Chronic (5) Hypertensive CKD (chronic kidney disease) Assessment & Plan: BP better controlled but not at goal; will increase cardizem dose further to 360 mg daily; Status: Acute (6) Hypothermia Status: Acute (7) Altered mental status Status: Acute (8) SIRS (systemic inflammatory response syndrome) Status: Acute (9) Anemia Status: Chronic (10) Monoclonal gammopathy Status: Chronic (11) Hypernatremia Assessment & Plan: Improved, encourage adequate fluid intake; Status: Acute
--- NOTE | 2017-07-29 23:09 | PN ---
DATE: ENDOCRINOLOGY FOLLOWUP NOTE LOCATION: ICU, room 433. SUBJECTIVE: This is a 66-year-old male with recent acute respiratory failure and underlying pleural effusion, now improving clinically and hemodynamically as noted thereof. He remains clinically and by chemically euthyroid at this time and the latest thyroid study showed a T4 of 5.77 with a TSH of 2.93. His latest chemistries showed a BUN of 33, sodium 145, potassium 4.0, chloride 108, CO2 of 29, glucose 178 and creatinine 2.5. His glucose levels have improved and are ranging from 107 to 171 mg/dL. It was 120 at bedtime last night. So at this time, we will continue the low-dose Humalog sliding scale coverage as ordered. We will also continue the levothyroxine given as 50 mcg once daily in the morning as ordered. We will obtain serial chemistries and serial thyroid studies accordingly. Bettina Mann MD
[2017-07-30] MEDS: Albuterol-Ipratrop 3 mg / 0.5 (3 ml) UD INH SCH ×4 (01:03→19:15)
[2017-07-30] MEDS: Levothyroxine 50 MCG TAB PO SCH (05:47)
[2017-07-30 06:59] LABS: HEMOGLOBIN 11.1 g/dL (12.0-18.0); MEAN CELL VOLUME 90.2 fl (80.0-94.0); MEAN CORPUSCULAR HGB CONC 32.1 g/dL (33.0-37.0); RBC 3.83 Mil/uL (4.40-5.90); WHITE BLOOD COUNT 8.5 K/uL (4.8-10.8)
[2017-07-30 07:14] LABS: CALCIUM 8.6 mg/dL (8.4-10.2)
[2017-07-30] MEDS: Insulin Regular 100 units/ml SC SCH ×4 (08:00→22:50)
[2017-07-30] MEDS: Acetylcysteine 20% Inhal Soln (4ml) INH SCH ×2 (08:48→19:16)
[2017-07-30] MEDS: Bacitracin OINT 15GM TOP SCH (09:59)
[2017-07-30] MEDS: Lidocaine 5% Patch TD SCH (10:05)
[2017-07-30] MEDS: diltiaZEM 180 mg/24 Hours CD Cap PO SCH (12:33)
[2017-07-30] MEDS: Epoetin Alfa 20000 UNIT/ML Inj SC SCH (12:35)
--- NOTE | 2017-07-30 13:55 | RAD ---
PROCEDURE: CHEST RADIOGRAPH, 1 VIEW HISTORY: b/l pleural effusions COMPARISON: July 29, 2017. FINDINGS: LUNGS: Consolidative changes both lower lobes. PLEURA: Stable bilateral pleural effusions left larger than right. CARDIOVASCULAR: No radiographic findings to suggest acute or significant cardiovascular disease. PICC line in satisfactory position OSSEOUS STRUCTURES: No significant abnormalities. VISUALIZED UPPER ABDOMEN: Normal. OTHER FINDINGS: None. IMPRESSION: No significant interval change compared to the prior examination(s).
--- NOTE | 2017-07-30 15:35 | PN ---
DATE: ENDOCRINOLOGY FOLLOWUP NOTE LOCATION: Room 433, ICU. SUBJECTIVE: This is a 66-year-old male with recent acute respiratory failure and underlying pleural effusion, currently taken off the chest tubes both anteriorly and posteriorly as noted and is improving clinically and hemodynamically as noted thereof. LABORATORY DATA: His glycemic levels are fluctuating and are ranging from 107 to 171 mg/dL. The latest chemistry showed a BUN of 33, sodium 145, potassium 4.0, chloride 108, CO2 of 29, glucose 178 and creatinine 2.5. His latest thyroid studies showed a T4 of 5.77 with a TSH of 2.93. PLAN: So at this time, we will continue the levothyroxine given as 50 mcg once daily as ordered. We will continue also the low-dose correction scale using Humalog insulin as given. We will titrate incrementally as indicated to optimize metabolic control. We will follow and advise accordingly. Bettina Mann MD
--- NOTE | 2017-07-30 21:20 | CP.PCM.PN ---
Subjective - Date & Time of Evaluation Date of Evaluation: 07/30/17 Time of Evaluation: 07:10 - Subjective Subjective: LEFT subclavian: patent, non-erythematous 66M resting, minimal pain at RIGHT chest wall. Otherwise, denies SOB. Objective - Vital Signs/Intake and Output Vital Signs (last 24 hours): Temp Pulse Resp BP Pulse Ox 36.7 C 78 16 145/61 96 07/30/17 20:10 07/30/17 20:10 07/30/17 20:10 07/30/17 20:10 07/30/17 20:10 Intake and Output: 07/30/17 07/31/17 18:59 06:59 Intake Total 540 Output Total 400 Balance 140 - Medications Medications: Current Medications Acetylcysteine (Acetylcysteine 20%) 2 ml INH RBID [facility] Last Admin: 07/30/17 19:16 Dose: Not Given Albuterol/Ipratropium (Duoneb 3 Mg/0.5 Mg (3 Ml) Ud) 3 ml INH RQ6 [facility] Last Admin: 07/30/17 19:15 Dose: 3 ml Amlodipine Besylate (Norvasc) 5 mg PO Q12H [facility] Last Admin: 07/30/17 10:02 Dose: 5 mg Bacitracin (Bacitracin Oint) 1 applic TOP DAILY [facility] Last Admin: 07/30/17 09:59 Dose: 1 applic Calcium Acetate (Phoslo) 2,001 mg PO 0830,1200,1830 [facility] Last Admin: 07/14/17 12:26 Dose: 2,001 mg Dextrose (Dextrose 50% Inj) 0 ml IV STAT PRN; Protocol PRN Reason: Hypoglycemia Protocol Dextrose (Glutose 15) 0 gm PO ONCE PRN; Protocol PRN Reason: Hypoglycemia Protocol Dextrose (Dextrose 50% Inj) 50 ml IVP Q1H PRN PRN Reason: Hypoglycemia Dextrose (Dextrose 50% Inj) 0 ml IV STAT PRN; Protocol PRN Reason: Hypoglycemia Protocol Dextrose (Glutose 15) 0 gm PO ONCE PRN; Protocol PRN Reason: Hypoglycemia Protocol Diltiazem HCl (Cardizem Cd) 360 mg PO DAILY [facility] Last Admin: 07/30/17 12:33 Dose: 360 mg Epoetin Roel (Procrit) 14,000 unit SC MWF [facility] Last Admin: 07/30/17 12:35 Dose: 14,000 unit Fluconazole (Diflucan) 200 mg PO DAILY [facility] PRN Reason: Protocol Last Admin: 07/30/17 10:00 Dose: 200 mg Furosemide (Lasix) 40 mg IVP BID [facility] Last Admin: 07/30/17 16:29 Dose: 40 mg Glucagon (Glucagen Diagnostic Kit) 0 mg IM STAT PRN; Protocol PRN Reason: Hypoglycemia Protocol Glucagon (Glucagen Diagnostic Kit) 0 mg IM STAT PRN; Protocol PRN Reason: Hypoglycemia Protocol Heparin Sodium (Porcine) (Heparin) 5,000 units SC Q12 [facility] PRN Reason: Protocol Last Admin: 07/30/17 10:00 Dose: 5,000 units Hydralazine HCl (Apresoline) 50 mg PO Q8 [facility] Last Admin: 07/30/17 16:27 Dose: 50 mg Insulin Human Regular (Humulin R) 0 units SC ACHS [facility] PRN Reason: Protocol Last Admin: 07/30/17 16:28 Dose: Not Given Levetiracetam (Keppra) 500 mg PO Q12H [facility] Last Admin: 07/30/17 10:01 Dose: 500 mg Levothyroxine Sodium (Synthroid) 50 mcg PO DAILY@0630 [facility] Last Admin: 07/30/17 05:47 Dose: 50 mcg Lidocaine (Lidoderm) 2 ea TD DAILY [facility] Last Admin: 07/30/17 10:05 Dose: 2 ea Lisinopril (Zestril) 40 mg PO DAILY [facility] Last Admin: 07/30/17 10:03 Dose: 40 mg Losartan Potassium (Cozaar) 25 mg PO DAILY [facility] Last Admin: 07/30/17 09:59 Dose: 25 mg Sodium Bicarbonate (Sodium Bicarbonate Tab) 1,300 mg PO Q8 [facility] Last Admin: 07/02/17 16:23 Dose: 1,300 mg Spironolactone (Aldactone) 25 mg PO BID [facility] Last Admin: 07/30/17 16:27 Dose: 25 mg Thiamine HCl (Vitamin B1 Tab) 100 mg PO DAILY [facility] Last Admin: 07/30/17 10:02 Dose: 100 mg - Labs Labs: 07/30/17 04:45 07/30/17 04:45 PT 15.3 Seconds (9.8-13.1) H 07/18/17 05:30 INR 1.4 (0.9-1.2) H 07/18/17 05:30 APTT 34.2 Seconds (25.6-37.1) 07/18/17 05:30 - Constitutional Appears: Non-toxic, No Acute Distress - Head Exam Head Exam: ATRAUMATIC, NORMAL INSPECTION - Eye Exam Eye Exam: EOMI, Normal appearance - ENT Exam ENT Exam: Mucous Membranes Moist - Respiratory Exam Respiratory Exam: Decreased Breath Sounds (b/l L>R), NORMAL BREATHING PATTERN - Cardiovascular Exam Cardiovascular Exam: REGULAR RHYTHM, +S1, +S2 - GI/Abdominal Exam GI & Abdominal Exam: Soft, Normal Bowel Sounds - Extremities Exam Extremities Exam: Normal Capillary Refill - Neurological Exam Neurological Exam: Awake - Psychiatric Exam Psychiatric exam: Normal Affect - Skin Skin Exam: Dry, Warm Assessment and Plan - Assessment and Plan (Free Text) Assessment: 66M currently stable, CXR shows stability in effusions. Goals remain to continue with strengthening, nutrition, and pleural effusion control. Patient declining Physical Therapy. Plan: 1) Pulmonary: Acute respiratory failure secondary to recurrent pleural effusions thought to be caused by nephrotic syndrome. Continuing to do well on 4LNC with CXR showing stable bilateral effusions. - 4L nasal cannula - c/w Chest PT Q4H via bed programming - Suctioning to induce coughing and removal of secretions Q4H - c/w Pulmonary recommendations for mucomyst, bronchodilator. - Will send for IR thoracentesis as clinically indicated CT Surgery Consult (Dr Gannon) appreciated: Chest tubes discontinued, IR for thoracentesis PRN recollection. CT surgery sign off. Pulmonary Consult (Dr Raymond)appreciated: Chest PT, bronchodilators, mucomyst, c /w current management ID Consult (Dr Dolan) appreciated: d/c Cefepime, culture if febrile, c/w Fluconazole PO for 3wks more from (07/25/17) Nephrology Consult (Dr Luz) appreciated: c/w medically controlling nephrotic syndrome with ACEI/CCB, Aldactone and Lasix started (monitor for hyperkalemia), started ARB yesterday. 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 f/u Nephrology recs, patient with hypomagnesemia and hypokalemia, both replaced. It would seem potassium levels are not an issue with current lasix regimen combined with ACEI/ARBs/and spironolactone. - Aspirin stopped in anticipation of the need for thoracentesis Nephrology Consult (Dr Luz) appreciated: Add ARB, c/w ACEI/Cardiazem/ Spironolactone, Hydralazine, Lasix 3) Renal: Current regimen is tentatively working for nephrotic syndrome. 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 NO EVIDENCE OF MONOCLONAL LIGHT OR HEAVY CHAIN- RELATED RENAL DISEASE. Renal duplex: no renal vein thrombosis - CKD stage 4: f/u Nephrology recs, monitor BUN/Cr - Anemia: remaining stable but no increase, EPO MWF - pt incontinent but voiding 4) Endocrinology: Stable, improving, f/u endocrinology recommendations, last TSH - 3.31, last Prolactin 27.1 - Prolactinemia: improving, monitor for now (last 27.1) - Hypothyroid: TSH stabilized, c/w Synthroid (last TSH 3.31) - DMII: SSI Lispro, Accu-checks, Hypoglycemic Bundle 5) Infectious Disease: Improving, no clinical indication of infection at this time - HAP: Prolactin: 0.21, no anitbiotics at this time, culture if febrile - c/w Fluconazole for suspected fungal infection Infectious Disease Consult (Dr Dolan) appreciated: c/w Fluconazole at this time 6) Neurology: Stable - c/w Keppra 500mg, PO, Q12H Neurology Consult (Dr Nicholas) appreciated: c/w Keppra, ASA being held, signed off 7) Skin: Overall doing very well thanks to the great care from nursing - Skin tear: healing site on LEFT dorsum of hand, healing on lower back x2, - Sacral-Stage I: healing - c/w heal boots - c/w pressure off-loading 8) Deconditioning - PT/OT, all activity as tolerated - Modified Dysphagia with thin liquids - Consult Dietary: Recommend 60g Protein and modified dysphagia 9) DVT prophylaxis - Heparin 5,000U, SC, Q12H
--- NOTE | 2017-07-30 22:09 | CP.PCM.PN ---
Subjective - Date & Time of Evaluation Date of Evaluation: 07/30/17 Time of Evaluation: 21:00 - Subjective Subjective: Patient reports ambulating today; tolerating diet; shortness of breath intermittently (not currently); Objective - Vital Signs/Intake and Output Vital Signs (last 24 hours): Temp Pulse Resp BP Pulse Ox 98.1 F 92 H 16 147/65 96 07/30/17 20:10 07/30/17 21:26 07/30/17 20:10 07/30/17 21:26 07/30/17 20:10 Intake and Output: 07/30/17 07/31/17 18:59 06:59 Intake Total 540 Output Total 400 Balance 140 - Medications Medications: Current Medications Acetylcysteine (Acetylcysteine 20%) 2 ml INH RBID [facility] Last Admin: 07/30/17 19:16 Dose: Not Given Albuterol/Ipratropium (Duoneb 3 Mg/0.5 Mg (3 Ml) Ud) 3 ml INH RQ6 [facility] Last Admin: 07/30/17 19:15 Dose: 3 ml Amlodipine Besylate (Norvasc) 5 mg PO Q12H [facility] Last Admin: 07/30/17 21:26 Dose: 5 mg Bacitracin (Bacitracin Oint) 1 applic TOP DAILY [facility] Last Admin: 07/30/17 09:59 Dose: 1 applic Calcium Acetate (Phoslo) 2,001 mg PO 0830,1200,1830 [facility] Last Admin: 07/14/17 12:26 Dose: 2,001 mg Dextrose (Dextrose 50% Inj) 0 ml IV STAT PRN; Protocol PRN Reason: Hypoglycemia Protocol Dextrose (Glutose 15) 0 gm PO ONCE PRN; Protocol PRN Reason: Hypoglycemia Protocol Dextrose (Dextrose 50% Inj) 50 ml IVP Q1H PRN PRN Reason: Hypoglycemia Dextrose (Dextrose 50% Inj) 0 ml IV STAT PRN; Protocol PRN Reason: Hypoglycemia Protocol Dextrose (Glutose 15) 0 gm PO ONCE PRN; Protocol PRN Reason: Hypoglycemia Protocol Diltiazem HCl (Cardizem Cd) 360 mg PO DAILY [facility] Last Admin: 07/30/17 12:33 Dose: 360 mg Epoetin Roel (Procrit) 14,000 unit SC MWF [facility] Last Admin: 07/30/17 12:35 Dose: 14,000 unit Fluconazole (Diflucan) 200 mg PO DAILY [facility] PRN Reason: Protocol Last Admin: 07/30/17 10:00 Dose: 200 mg Furosemide (Lasix) 40 mg IVP BID [facility] Last Admin: 07/30/17 16:29 Dose: 40 mg Glucagon (Glucagen Diagnostic Kit) 0 mg IM STAT PRN; Protocol PRN Reason: Hypoglycemia Protocol Glucagon (Glucagen Diagnostic Kit) 0 mg IM STAT PRN; Protocol PRN Reason: Hypoglycemia Protocol Heparin Sodium (Porcine) (Heparin) 5,000 units SC Q12 [facility] PRN Reason: Protocol Last Admin: 07/30/17 21:26 Dose: 5,000 units Hydralazine HCl (Apresoline) 50 mg PO Q8 [facility] Last Admin: 07/30/17 16:27 Dose: 50 mg Insulin Human Regular (Humulin R) 0 units SC ACHS [facility] PRN Reason: Protocol Last Admin: 07/30/17 16:28 Dose: Not Given Levetiracetam (Keppra) 500 mg PO Q12H [facility] Last Admin: 07/30/17 21:26 Dose: 500 mg Levothyroxine Sodium (Synthroid) 50 mcg PO DAILY@0630 [facility] Last Admin: 07/30/17 05:47 Dose: 50 mcg Lidocaine (Lidoderm) 2 ea TD DAILY [facility] Last Admin: 07/30/17 10:05 Dose: 2 ea Lisinopril (Zestril) 40 mg PO DAILY [facility] Last Admin: 07/30/17 10:03 Dose: 40 mg Losartan Potassium (Cozaar) 25 mg PO DAILY [facility] Last Admin: 07/30/17 09:59 Dose: 25 mg Sodium Bicarbonate (Sodium Bicarbonate Tab) 1,300 mg PO Q8 [facility] Last Admin: 07/02/17 16:23 Dose: 1,300 mg Spironolactone (Aldactone) 25 mg PO BID [facility] Last Admin: 07/30/17 16:27 Dose: 25 mg Thiamine HCl (Vitamin B1 Tab) 100 mg PO DAILY [facility] Last Admin: 07/30/17 10:02 Dose: 100 mg - Labs Labs: 07/30/17 04:45 07/30/17 04:45 PT 15.3 Seconds (9.8-13.1) H 07/18/17 05:30 INR 1.4 (0.9-1.2) H 07/18/17 05:30 APTT 34.2 Seconds (25.6-37.1) 07/18/17 05:30 - Constitutional Appears: Non-toxic, No Acute Distress - Eye Exam Eye Exam: absent: Scleral icterus - ENT Exam ENT Exam: Mucous Membranes Moist - Respiratory Exam Respiratory Exam: Clear to Ausculation Bilateral. absent: Respiratory Distress - Cardiovascular Exam Cardiovascular Exam: RRR, +S1, +S2 - GI/Abdominal Exam GI & Abdominal Exam: Soft. absent: Distended, Tenderness - Extremities Exam Additional comments: edema of dependent areas, much improved; - Neurological Exam Neurological Exam: Alert, Awake - Psychiatric Exam Psychiatric exam: Normal Affect, Normal Mood. absent: Agitated - Skin Skin Exam: Warm. absent: Cyanosis Assessment and Plan (1) Chronic kidney disease, stage 3 (moderate) Assessment & Plan: Secondary to diabetic nephropathy, possible worsened by chronic NSAID use; renal function currently stable on aggressive KEVIN blockade and diuretic regimen ; goal is to reduce proteinuria; 24 hr urine protein collection in progress, looking for improvement from previous 9g proteinuria; Status: Chronic (2) Acute renal failure Status: Resolved (3) Nephrotic syndrome Status: Chronic (4) Pleural effusion Status: Chronic (5) Hypertensive CKD (chronic kidney disease) Assessment & Plan: BP control improving, goal is eventually <130/80; cardizem dose just increased, continue rest of meds; will consider switching to PO diuretics soon (bumex 1 mg bid); Status: Acute (6) Hypothermia Status: Acute (7) Altered mental status Status: Acute (8) SIRS (systemic inflammatory response syndrome) Status: Acute (9) Anemia Assessment & Plan: Hgb much improved on EPO, now slightly above goal (10-11g); will hold next dose and restart at 10,000 u qMWF; Status: Chronic (10) Monoclonal gammopathy Status: Chronic (11) Hypernatremia Assessment & Plan: Mild and stable, continue to encourage PO water intake; Status: Acute
[2017-07-31] MEDS: Albuterol-Ipratrop 3 mg / 0.5 (3 ml) UD INH SCH ×4 (01:41→20:09)
[2017-07-31] MEDS: Levothyroxine 50 MCG TAB PO SCH (06:21)
[2017-07-31 06:59] LABS: CALCIUM 8.4 mg/dL (8.4-10.2)
[2017-07-31 07:00] LABS: HEMOGLOBIN 11.1 g/dL (12.0-18.0); MEAN CELL VOLUME 89.8 fl (80.0-94.0); MEAN CORPUSCULAR HEMOGLOBIN 28.9 pg (27.0-31.0); MEAN CORPUSCULAR HGB CONC 32.1 g/dL (33.0-37.0); RBC 3.84 Mil/uL (4.40-5.90); RED CELL DISTRIBUTION WIDTH 17.4 % (11.5-14.5); WHITE BLOOD COUNT 7.3 K/uL (4.8-10.8)
[2017-07-31] MEDS: Acetylcysteine 20% Inhal Soln (4ml) INH SCH ×2 (08:05→20:09)
--- NOTE | 2017-07-31 09:30 | CP.PCM.PN ---
Subjective - Date & Time of Evaluation Date of Evaluation: 07/31/17 Time of Evaluation: 09:30 - Subjective Subjective: clinically unchanged no chest pains/sob cxr unchanged imp-recurrent pleural effusions due to nephrotic syndrome will continue current rx Objective - Vital Signs/Intake and Output Vital Signs (last 24 hours): Temp Pulse Resp BP Pulse Ox 98.1 F 78 20 136/75 94 L 07/31/17 04:43 07/31/17 04:43 07/31/17 04:43 07/31/17 04:43 07/31/17 04:43 - Medications Medications: Current Medications Acetylcysteine (Acetylcysteine 20%) 2 ml INH RBID [facility] Last Admin: 07/31/17 08:05 Dose: 2 ml Albuterol/Ipratropium (Duoneb 3 Mg/0.5 Mg (3 Ml) Ud) 3 ml INH RQ6 [facility] Last Admin: 07/31/17 08:05 Dose: 3 ml Amlodipine Besylate (Norvasc) 5 mg PO Q12H [facility] Last Admin: 07/30/17 21:26 Dose: 5 mg Bacitracin (Bacitracin Oint) 1 applic TOP DAILY [facility] Last Admin: 07/30/17 09:59 Dose: 1 applic Calcium Acetate (Phoslo) 2,001 mg PO 0830,1200,1830 [facility] Last Admin: 07/14/17 12:26 Dose: 2,001 mg Dextrose (Dextrose 50% Inj) 0 ml IV STAT PRN; Protocol PRN Reason: Hypoglycemia Protocol Dextrose (Glutose 15) 0 gm PO ONCE PRN; Protocol PRN Reason: Hypoglycemia Protocol Dextrose (Dextrose 50% Inj) 50 ml IVP Q1H PRN PRN Reason: Hypoglycemia Dextrose (Dextrose 50% Inj) 0 ml IV STAT PRN; Protocol PRN Reason: Hypoglycemia Protocol Dextrose (Glutose 15) 0 gm PO ONCE PRN; Protocol PRN Reason: Hypoglycemia Protocol Diltiazem HCl (Cardizem Cd) 360 mg PO DAILY [facility] Last Admin: 07/30/17 12:33 Dose: 360 mg Epoetin Roel (Procrit) 14,000 unit SC MWF [facility] Last Admin: 07/30/17 12:35 Dose: 14,000 unit Fluconazole (Diflucan) 200 mg PO DAILY [facility] PRN Reason: Protocol Last Admin: 07/30/17 10:00 Dose: 200 mg Furosemide (Lasix) 40 mg IVP BID [facility] Last Admin: 07/30/17 16:29 Dose: 40 mg Glucagon (Glucagen Diagnostic Kit) 0 mg IM STAT PRN; Protocol PRN Reason: Hypoglycemia Protocol Glucagon (Glucagen Diagnostic Kit) 0 mg IM STAT PRN; Protocol PRN Reason: Hypoglycemia Protocol Heparin Sodium (Porcine) (Heparin) 5,000 units SC Q12 [facility] PRN Reason: Protocol Last Admin: 07/30/17 21:26 Dose: 5,000 units Hydralazine HCl (Apresoline) 50 mg PO Q8 [facility] Last Admin: 07/31/17 02:08 Dose: 50 mg Insulin Human Regular (Humulin R) 0 units SC ACHS [facility] PRN Reason: Protocol Last Admin: 07/30/17 22:50 Dose: Not Given Levetiracetam (Keppra) 500 mg PO Q12H [facility] Last Admin: 07/30/17 21:26 Dose: 500 mg Levothyroxine Sodium (Synthroid) 50 mcg PO DAILY@0630 [facility] Last Admin: 07/31/17 06:21 Dose: 50 mcg Lidocaine (Lidoderm) 2 ea TD DAILY [facility] Last Admin: 07/30/17 10:05 Dose: 2 ea Lisinopril (Zestril) 40 mg PO DAILY [facility] Last Admin: 07/30/17 10:03 Dose: 40 mg Losartan Potassium (Cozaar) 25 mg PO DAILY [facility] Last Admin: 07/30/17 09:59 Dose: 25 mg Repaglinide (Prandin) 1 mg PO TIDAC [facility] Sodium Bicarbonate (Sodium Bicarbonate Tab) 1,300 mg PO Q8 [facility] Last Admin: 07/02/17 16:23 Dose: 1,300 mg Spironolactone (Aldactone) 25 mg PO BID [facility] Last Admin: 07/30/17 16:27 Dose: 25 mg Thiamine HCl (Vitamin B1 Tab) 100 mg PO DAILY [facility] Last Admin: 07/30/17 10:02 Dose: 100 mg - Labs Labs: 07/31/17 06:00 07/31/17 06:00 PT 15.3 Seconds (9.8-13.1) H 07/18/17 05:30 INR 1.4 (0.9-1.2) H 07/18/17 05:30 APTT 34.2 Seconds (25.6-37.1) 07/18/17 05:30
[2017-07-31] MEDS: Bacitracin OINT 15GM TOP SCH (10:07)
[2017-07-31] MEDS: diltiaZEM 180 mg/24 Hours CD Cap PO SCH (10:08)
[2017-07-31] MEDS: Lidocaine 5% Patch TD SCH (10:10)
[2017-07-31] MEDS: Insulin Regular 100 units/ml SC SCH ×4 (10:13→21:31)
--- NOTE | 2017-07-31 10:20 | CP.PCM.PN ---
Subjective - Date & Time of Evaluation Date of Evaluation: 07/31/17 Time of Evaluation: 07:00 - Subjective Subjective: Patient seen and examined bedside. There are no acute events overnight. The patient is laying comfortably in bed NAD. The patient has 24 hour urine being collected. Patient is cooperating w/ PT. Patient has pulmonary bed in use and sites of chest tubes healing appropriately. Objective - Vital Signs/Intake and Output Vital Signs (last 24 hours): Temp Pulse Resp BP Pulse Ox 98.5 F 86 19 153/68 H 92 L 07/31/17 10:15 07/31/17 10:15 07/31/17 10:15 07/31/17 10:15 07/31/17 10:15 - Medications Medications: Current Medications Acetylcysteine (Acetylcysteine 20%) 2 ml INH RBID [facility] Last Admin: 07/31/17 08:05 Dose: 2 ml Albuterol/Ipratropium (Duoneb 3 Mg/0.5 Mg (3 Ml) Ud) 3 ml INH RQ6 [facility] Last Admin: 07/31/17 08:05 Dose: 3 ml Amlodipine Besylate (Norvasc) 5 mg PO Q12H [facility] Last Admin: 07/31/17 10:11 Dose: 5 mg Bacitracin (Bacitracin Oint) 1 applic TOP DAILY [facility] Last Admin: 07/31/17 10:07 Dose: 1 applic Calcium Acetate (Phoslo) 2,001 mg PO 0830,1200,1830 [facility] Last Admin: 07/14/17 12:26 Dose: 2,001 mg Dextrose (Dextrose 50% Inj) 0 ml IV STAT PRN; Protocol PRN Reason: Hypoglycemia Protocol Dextrose (Glutose 15) 0 gm PO ONCE PRN; Protocol PRN Reason: Hypoglycemia Protocol Dextrose (Dextrose 50% Inj) 50 ml IVP Q1H PRN PRN Reason: Hypoglycemia Dextrose (Dextrose 50% Inj) 0 ml IV STAT PRN; Protocol PRN Reason: Hypoglycemia Protocol Dextrose (Glutose 15) 0 gm PO ONCE PRN; Protocol PRN Reason: Hypoglycemia Protocol Diltiazem HCl (Cardizem Cd) 360 mg PO DAILY [facility] Last Admin: 07/31/17 10:08 Dose: 360 mg Epoetin Roel (Procrit) 14,000 unit SC MWF [facility] Last Admin: 07/30/17 12:35 Dose: 14,000 unit Fluconazole (Diflucan) 200 mg PO DAILY [facility] PRN Reason: Protocol Last Admin: 07/31/17 10:09 Dose: 200 mg Furosemide (Lasix) 40 mg IVP BID [facility] Last Admin: 07/31/17 10:10 Dose: 40 mg Glucagon (Glucagen Diagnostic Kit) 0 mg IM STAT PRN; Protocol PRN Reason: Hypoglycemia Protocol Glucagon (Glucagen Diagnostic Kit) 0 mg IM STAT PRN; Protocol PRN Reason: Hypoglycemia Protocol Heparin Sodium (Porcine) (Heparin) 5,000 units SC Q12 [facility] PRN Reason: Protocol Last Admin: 07/31/17 10:09 Dose: 5,000 units Hydralazine HCl (Apresoline) 50 mg PO Q8 [facility] Last Admin: 07/31/17 10:06 Dose: 50 mg Insulin Human Regular (Humulin R) 0 units SC ACHS [facility] PRN Reason: Protocol Last Admin: 07/31/17 10:13 Dose: Not Given Levetiracetam (Keppra) 500 mg PO Q12H [facility] Last Admin: 07/31/17 10:09 Dose: 500 mg Levothyroxine Sodium (Synthroid) 50 mcg PO DAILY@0630 [facility] Last Admin: 07/31/17 06:21 Dose: 50 mcg Lidocaine (Lidoderm) 2 ea TD DAILY [facility] Last Admin: 07/31/17 10:10 Dose: 2 ea Lisinopril (Zestril) 40 mg PO DAILY [facility] Last Admin: 07/31/17 10:12 Dose: 40 mg Losartan Potassium (Cozaar) 25 mg PO DAILY [facility] Last Admin: 07/31/17 10:08 Dose: 25 mg Repaglinide (Prandin) 1 mg PO TIDAC [facility] Last Admin: 07/31/17 10:11 Dose: 1 mg Sodium Bicarbonate (Sodium Bicarbonate Tab) 1,300 mg PO Q8 [facility] Last Admin: 07/02/17 16:23 Dose: 1,300 mg Spironolactone (Aldactone) 25 mg PO BID [facility] Last Admin: 07/31/17 10:06 Dose: 25 mg Thiamine HCl (Vitamin B1 Tab) 100 mg PO DAILY [facility] Last Admin: 07/31/17 10:12 Dose: 100 mg - Labs Labs: 07/31/17 06:00 07/31/17 06:00 PT 15.3 Seconds (9.8-13.1) H 07/18/17 05:30 INR 1.4 (0.9-1.2) H 07/18/17 05:30 APTT 34.2 Seconds (25.6-37.1) 07/18/17 05:30 - Constitutional Appears: No Acute Distress - Head Exam Head Exam: ATRAUMATIC, NORMAL INSPECTION - Eye Exam Eye Exam: Normal appearance - ENT Exam ENT Exam: Mucous Membranes Moist - Neck Exam Neck Exam: absent: Tenderness - Respiratory Exam Respiratory Exam: Decreased Breath Sounds. absent: Wheezes, Respiratory Distress - Cardiovascular Exam Cardiovascular Exam: REGULAR RHYTHM. absent: Tachycardia - GI/Abdominal Exam GI & Abdominal Exam: Soft, Normal Bowel Sounds. absent: Distended, Tenderness - Extremities Exam Extremities Exam: Normal Capillary Refill. absent: Calf Tenderness - Neurological Exam Neurological Exam: Alert, Awake - Skin Skin Exam: Dry, Warm Assessment and Plan - Assessment and Plan (Free Text) Assessment: 66 y/o man w/ pmh of HTN, DM, DM nephropathy, monoclonal gammopathy, recurrent L pleural effusion admitted for sepsis, Hypothermia, CHINTAN on CKD. Currently stable Plan: 1) Acute respiratory failure secondary to recurrent pleural effusions. Most likely 2/2 nephrotic syndrome. - Continuing to do well on 4LNC - CXR showing stable bilateral effusions. - c/w Chest PT Q4H via bed programming - Suctioning to induce coughing and removal of secretions Q4H - c/w Pulmonary recommendations for mucomyst, bronchodilator. - Will send for IR thoracentesis as clinically indicated - CT Surgery Consult, Dr Gannon, recommendations appreciated: Chest tubes discontinued, IR for thoracentesis PRN recollection. CT surgery sign off. - Pulmonary Consult, Dr Raymond, recommendations appreciated: Chest PT, bronchodilators, mucomyst, c/w current management - ID Consult, Dr Dolan, recommendations appreciated: d/c Cefepime, culture if febrile, c/w Fluconazole PO for 3wks more from (07/25/17) - Nephrology Consult, Dr Luz, recommendations appreciated: c/w medically controlling nephrotic syndrome with ACEI/CCB, Aldactone and Lasix started ( monitor for hyperkalemia), started ARB yesterday. 2) HTN due to CKD - preCHF: Echo 05/31/17 normal EF 60-65% - Continuing to improve but renal function gradually worsening as is expected as per Nephrology - Nephrology Consult, Dr Luz, recommendations appreciated: c/w ACEI/Cardiazem /Spironolactone, ARB, Hydralazine, Lasix 3) Nephrotic Syndrome - electrolytes stable - biopsy 06/05/17- nodular glomerulosclerosis/ ~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 NO EVIDENCE OF MONOCLONAL LIGHT OR HEAVY CHAIN-RELATED RENAL DISEASE. - Renal duplex: no renal vein thrombosis - CKD stage 4: f/u Nephrology recs, monitor BUN/Cr - Anemia: remaining stable but no increase, EPO MWF - pt incontinent but voiding - f/u 24 hour urine, protein and Cr 4) Hypothyroidism - f/u endocrinology recommendations - TSH 2.93 - c/w Synthroid 5) Prolactinemia - Prolactin 27.1 - improving, monitor for now 6) DM type 2 - SSI Lispro - Accu-checks - Hypoglycemic Bundle 7) Seizure - c/w Keppra 500mg, PO, Q12H - Neurology Consult, Dr Nicholas, recommendations appreciated: c/w Keppra, ASA being held, signed off 8) Skin breakdown - Skin tear: healing site on LEFT dorsum of hand, healing on lower back x2, - Sacral-Stage I: healing - c/w heal boots - c/w pressure off-loading 9) Deconditioning - PT/OT, all activity as tolerated - Modified Dysphagia with thin liquids - Consult Dietary: Recommend 60g Protein and modified dysphagia 10) DVT prophylaxis - Heparin 5,000U, SC, Q12H
--- NOTE | 2017-07-31 19:12 | PN ---
DATE: ENDOCRINOLOGY FOLLOWUP NOTE LOCATION: In the room 663. SUBJECTIVE: This is a 66-year-old male with recent acute respiratory failure and underlying pleural effusion and since then improved clinically and hemodynamically as noted thereof. His glycemic levels are fluctuating related to the his oral intake as noted. The glucose levels have ranged from 113 to 175 mg/dL. Latest chemistry showed a BUN of 37, sodium 145, potassium 3.7, chloride 107, CO2 of 28, glucose 123, and creatinine 2.2. So, at this time, we will continue Prandin given as 1.0 mg p.o. t.i.d. before meals as ordered. We will continue also the low dose levothyroxine given as 50 mcg once daily as ordered. We will titrate incrementally as indicated to optimize metabolic control. We will follow and advise accordingly. Bettina Mann MD
[2017-07-31 19:53] LABS: URINE CREATININE 43.5 mg/dL
[2017-07-31 19:56] LABS: U CREAT 24HOUR URINE 598.1 mg/24hr (800-2800); URINE CREATININE 43.5 mg/dl
[2017-07-31 21:32] LABS: URINE 24 HOUR TOTAL PROTEIN 9487.5 mg/24hr (42-225)
[2017-08-01] MEDS: Albuterol-Ipratrop 3 mg / 0.5 (3 ml) UD INH SCH ×4 (01:06→20:48)
[2017-08-01] MEDS: Levothyroxine 50 MCG TAB PO SCH (07:00)
[2017-08-01] MEDS: Acetylcysteine 20% Inhal Soln (4ml) INH SCH ×2 (07:16→20:58)
[2017-08-01] MEDS: Insulin Regular 100 units/ml SC SCH ×4 (07:18→22:00)
--- NOTE | 2017-08-01 08:05 | CP.PCM.PN ---
Subjective - Date & Time of Evaluation Date of Evaluation: 08/01/17 Time of Evaluation: 07:45 - Subjective Subjective: Patient seen and examined bedside. There are no acute events overnight. The patient is laying comfortably in bed NAD. The patient had 24 hour urine collected. Salazar has been D/C'ed. Patient refused PT yesterday. Patient has pulmonary bed in use and sites of chest tubes healing appropriately. Patient denies headaches, chest pain, SOB, abdominal pain, nausea, vomiting, diarrhea, or fever. Objective - Vital Signs/Intake and Output Vital Signs (last 24 hours): Temp Pulse Resp BP Pulse Ox 98.4 F 82 18 150/75 95 08/01/17 00:03 08/01/17 01:21 08/01/17 00:03 08/01/17 01:21 08/01/17 00:03 - Medications Medications: Current Medications Acetylcysteine (Acetylcysteine 20%) 2 ml INH RBID [facility] Last Admin: 08/01/17 07:16 Dose: 2 ml Albuterol/Ipratropium (Duoneb 3 Mg/0.5 Mg (3 Ml) Ud) 3 ml INH RQ6 [facility] Last Admin: 08/01/17 07:16 Dose: 3 ml Amlodipine Besylate (Norvasc) 5 mg PO Q12H [facility] Last Admin: 07/31/17 21:23 Dose: 5 mg Bacitracin (Bacitracin Oint) 1 applic TOP DAILY [facility] Last Admin: 07/31/17 10:07 Dose: 1 applic Calcium Acetate (Phoslo) 2,001 mg PO 0830,1200,1830 [facility] Last Admin: 07/14/17 12:26 Dose: 2,001 mg Dextrose (Dextrose 50% Inj) 0 ml IV STAT PRN; Protocol PRN Reason: Hypoglycemia Protocol Dextrose (Glutose 15) 0 gm PO ONCE PRN; Protocol PRN Reason: Hypoglycemia Protocol Dextrose (Dextrose 50% Inj) 50 ml IVP Q1H [facility] PRN Reason: Hypoglycemia Dextrose (Dextrose 50% Inj) 0 ml IV STAT PRN; Protocol PRN Reason: Hypoglycemia Protocol Dextrose (Glutose 15) 0 gm PO ONCE PRN; Protocol PRN Reason: Hypoglycemia Protocol Diltiazem HCl (Cardizem Cd) 360 mg PO DAILY [facility] Last Admin: 07/31/17 10:08 Dose: 360 mg Epoetin Roel (Procrit) 14,000 unit SC MWF [facility] Last Admin: 07/30/17 12:35 Dose: 14,000 unit Fluconazole (Diflucan) 200 mg PO DAILY [facility] PRN Reason: Protocol Last Admin: 07/31/17 10:09 Dose: 200 mg Furosemide (Lasix) 40 mg IVP BID [facility] Last Admin: 07/31/17 17:43 Dose: 40 mg Glucagon (Glucagen Diagnostic Kit) 0 mg IM STAT PRN; Protocol PRN Reason: Hypoglycemia Protocol Glucagon (Glucagen Diagnostic Kit) 0 mg IM STAT PRN; Protocol PRN Reason: Hypoglycemia Protocol Heparin Sodium (Porcine) (Heparin) 5,000 units SC Q12 [facility] PRN Reason: Protocol Last Admin: 07/31/17 21:24 Dose: 5,000 units Hydralazine HCl (Apresoline) 50 mg PO Q8 [facility] Last Admin: 08/01/17 01:21 Dose: 50 mg Insulin Human Regular (Humulin R) 0 units SC ACHS [facility] PRN Reason: Protocol Last Admin: 08/01/17 07:18 Dose: Not Given Levetiracetam (Keppra) 500 mg PO Q12H [facility] Last Admin: 07/31/17 21:24 Dose: 500 mg Levothyroxine Sodium (Synthroid) 50 mcg PO DAILY@0630 [facility] Last Admin: 08/01/17 07:00 Dose: 50 mcg Lidocaine (Lidoderm) 2 ea TD DAILY [facility] Last Admin: 07/31/17 10:10 Dose: 2 ea Lisinopril (Zestril) 40 mg PO DAILY [facility] Last Admin: 07/31/17 10:12 Dose: 40 mg Losartan Potassium (Cozaar) 25 mg PO DAILY [facility] Last Admin: 07/31/17 10:08 Dose: 25 mg Mirtazapine (Remeron) 30 mg PO HS [facility] Last Admin: 07/31/17 21:24 Dose: 30 mg Repaglinide (Prandin) 1 mg PO TIDAC [facility] Last Admin: 07/31/17 16:55 Dose: 1 mg Sodium Bicarbonate (Sodium Bicarbonate Tab) 1,300 mg PO Q8 [facility] Last Admin: 07/02/17 16:23 Dose: 1,300 mg Spironolactone (Aldactone) 25 mg PO BID [facility] Last Admin: 07/31/17 16:54 Dose: 25 mg Thiamine HCl (Vitamin B1 Tab) 100 mg PO DAILY [facility] Last Admin: 07/31/17 10:12 Dose: 100 mg - Labs Labs: 07/31/17 06:00 07/31/17 19:00 PT 15.3 Seconds (9.8-13.1) H 07/18/17 05:30 INR 1.4 (0.9-1.2) H 07/18/17 05:30 APTT 34.2 Seconds (25.6-37.1) 07/18/17 05:30 - Constitutional Appears: No Acute Distress - Head Exam Head Exam: ATRAUMATIC, NORMAL INSPECTION, NORMOCEPHALIC - Eye Exam Eye Exam: Normal appearance - ENT Exam ENT Exam: Mucous Membranes Moist - Neck Exam Neck Exam: Full ROM. absent: Tenderness - Respiratory Exam Respiratory Exam: Decreased Breath Sounds. absent: Wheezes, Respiratory Distress - Cardiovascular Exam Cardiovascular Exam: REGULAR RHYTHM. absent: Tachycardia - GI/Abdominal Exam GI & Abdominal Exam: Soft, Normal Bowel Sounds. absent: Distended, Tenderness - Extremities Exam Extremities Exam: absent: Calf Tenderness, Tenderness - Neurological Exam Neurological Exam: Alert, Awake - Skin Skin Exam: Dry, Warm Assessment and Plan - Assessment and Plan (Free Text) Assessment: 66 y/o man w/ pmh of HTN, DM, DM nephropathy, monoclonal gammopathy, recurrent L pleural effusion admitted for sepsis, Hypothermia, CHINTAN on CKD. Currently stable Plan: 1) Acute respiratory failure secondary to recurrent pleural effusions. Most likely 2/2 nephrotic syndrome. - Continuing to do well on 4LNC - CXR showing stable bilateral effusions. - c/w Chest PT Q4H via bed programming - Suctioning to induce coughing and removal of secretions Q4H - c/w Pulmonary recommendations for mucomyst, bronchodilator. - Will send for IR thoracentesis as clinically indicated - CT Surgery Consult, Dr Gannon, recommendations appreciated: Chest tubes discontinued, IR for thoracentesis PRN recollection. CT surgery sign off. - Pulmonary Consult, Dr Raymond, recommendations appreciated: Chest PT, bronchodilators, mucomyst, c/w current management - ID Consult, Dr Dolan, recommendations appreciated: d/c Cefepime, culture if febrile, c/w Fluconazole PO for 3wks more from (07/25/17) - Nephrology Consult, Dr Luz, recommendations appreciated: c/w medically controlling nephrotic syndrome with ACEI/CCB, Aldactone and Lasix started ( monitor for hyperkalemia), started on ARB. 2) HTN due to CKD - preCHF: Echo 05/31/17 normal EF 60-65% - Continuing to improve but renal function gradually worsening as is expected as per Nephrology - Nephrology Consult, Dr Luz, recommendations appreciated: c/w ACEI/Cardiazem /Spironolactone, ARB, Hydralazine, Lasix 3) Nephrotic Syndrome - electrolytes stable - biopsy 06/05/17- nodular glomerulosclerosis/ ~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 NO EVIDENCE OF MONOCLONAL LIGHT OR HEAVY CHAIN-RELATED RENAL DISEASE. - Renal duplex: no renal vein thrombosis - CKD stage 4: f/u Nephrology recs, monitor BUN/Cr - Anemia: remaining stable but no increase, EPO MWF - pt incontinent but voiding - 24 hour urine, protein 9487.5 - 24 hour urine, Cr 598.1 - 24 hour urine, Cr clearance 18.0 4) Hypothyroidism - endocrinology recommendations appreciated - TSH 2.93 - c/w Synthroid 50 mcg PO daily 5) Prolactinemia - Prolactin 27.1 - improving, monitor for now 6) DM type 2 - prandin 1 mg PO TIDAC - SSI Lispro - Accu-checks - Hypoglycemic Bundle 7) Seizure - c/w Keppra 500mg, PO, Q12H - Neurology Consult, Dr Nicholas, recommendations appreciated: c/w Keppra, ASA being held, signed off 8) Skin breakdown - Skin tear: healing site on LEFT dorsum of hand, healing on lower back x2, - Sacral-Stage I: healing - c/w heal boots - c/w pressure off-loading 9) Depression - history of depression - restarted remeron 30 mg PO HS 10) Deconditioning - PT/OT, all activity as tolerated - Modified Dysphagia with thin liquids - Consult Dietary: Recommend 60g Protein and modified dysphagia 11) DVT prophylaxis - Heparin 5,000U, SC, Q12H dispo: contact social media marketing specialist regarding possible guardianship
[2017-08-01] MEDS: diltiaZEM 180 mg/24 Hours CD Cap PO SCH (08:45)
[2017-08-01] MEDS: Bacitracin OINT 15GM TOP SCH (08:46)
[2017-08-01] MEDS: Lidocaine 5% Patch TD SCH (10:09)
--- NOTE | 2017-08-01 19:21 | CP.PCM.PN ---
Subjective - Date & Time of Evaluation Date of Evaluation: 08/01/17 Time of Evaluation: 15:45 - Subjective Subjective: Reports tolerating diet, no nausea/vomiting; walking with PT; shortness of breath at times; Objective - Vital Signs/Intake and Output Vital Signs (last 24 hours): Temp Pulse Resp BP Pulse Ox 98.2 F 78 20 144/69 95 08/01/17 16:34 08/01/17 16:34 08/01/17 16:34 08/01/17 16:34 08/01/17 16:34 - Medications Medications: Current Medications Acetylcysteine (Acetylcysteine 20%) 2 ml INH RBID [facility] Last Admin: 08/01/17 07:16 Dose: 2 ml Albuterol/Ipratropium (Duoneb 3 Mg/0.5 Mg (3 Ml) Ud) 3 ml INH RQ6 [facility] Last Admin: 08/01/17 13:19 Dose: Not Given Amlodipine Besylate (Norvasc) 5 mg PO Q12H [facility] Last Admin: 08/01/17 08:45 Dose: 5 mg Bacitracin (Bacitracin Oint) 1 applic TOP DAILY [facility] Last Admin: 08/01/17 08:46 Dose: 1 applic Calcium Acetate (Phoslo) 2,001 mg PO 0830,1200,1830 [facility] Last Admin: 07/14/17 12:26 Dose: 2,001 mg Dextrose (Dextrose 50% Inj) 0 ml IV STAT PRN; Protocol PRN Reason: Hypoglycemia Protocol Dextrose (Glutose 15) 0 gm PO ONCE PRN; Protocol PRN Reason: Hypoglycemia Protocol Dextrose (Dextrose 50% Inj) 50 ml IVP Q1H PRN PRN Reason: Hypoglycemia Dextrose (Dextrose 50% Inj) 0 ml IV STAT PRN; Protocol PRN Reason: Hypoglycemia Protocol Dextrose (Glutose 15) 0 gm PO ONCE PRN; Protocol PRN Reason: Hypoglycemia Protocol Diltiazem HCl (Cardizem Cd) 360 mg PO DAILY [facility] Last Admin: 08/01/17 08:45 Dose: 360 mg Epoetin Roel (Procrit) 14,000 unit SC MWF [facility] Last Admin: 07/30/17 12:35 Dose: 14,000 unit Fluconazole (Diflucan) 200 mg PO DAILY [facility] PRN Reason: Protocol Last Admin: 08/01/17 08:47 Dose: 200 mg Furosemide (Lasix) 40 mg IVP BID [facility] Last Admin: 08/01/17 16:32 Dose: 40 mg Glucagon (Glucagen Diagnostic Kit) 0 mg IM STAT PRN; Protocol PRN Reason: Hypoglycemia Protocol Glucagon (Glucagen Diagnostic Kit) 0 mg IM STAT PRN; Protocol PRN Reason: Hypoglycemia Protocol Heparin Sodium (Porcine) (Heparin) 5,000 units SC Q12 [facility] PRN Reason: Protocol Last Admin: 08/01/17 10:08 Dose: 5,000 units Hydralazine HCl (Apresoline) 50 mg PO Q8 [facility] Last Admin: 08/01/17 16:31 Dose: 50 mg Insulin Human Regular (Humulin R) 0 units SC ACHS [facility] PRN Reason: Protocol Last Admin: 08/01/17 18:43 Dose: Not Given Levetiracetam (Keppra) 500 mg PO Q12H [facility] Last Admin: 08/01/17 08:45 Dose: 500 mg Levothyroxine Sodium (Synthroid) 50 mcg PO DAILY@0630 [facility] Last Admin: 08/01/17 07:00 Dose: 50 mcg Lidocaine (Lidoderm) 2 ea TD DAILY [facility] Last Admin: 08/01/17 10:09 Dose: 2 ea Lisinopril (Zestril) 40 mg PO DAILY [facility] Last Admin: 08/01/17 10:10 Dose: 40 mg Losartan Potassium (Cozaar) 25 mg PO DAILY [facility] Last Admin: 08/01/17 10:08 Dose: 25 mg Mirtazapine (Remeron) 30 mg PO HS [facility] Last Admin: 07/31/17 21:24 Dose: 30 mg Repaglinide (Prandin) 1 mg PO TIDAC [facility] Last Admin: 08/01/17 16:32 Dose: 1 mg Sodium Bicarbonate (Sodium Bicarbonate Tab) 1,300 mg PO Q8 [facility] Last Admin: 07/02/17 16:23 Dose: 1,300 mg Spironolactone (Aldactone) 25 mg PO BID [facility] Last Admin: 08/01/17 16:31 Dose: 25 mg Thiamine HCl (Vitamin B1 Tab) 100 mg PO DAILY [facility] Last Admin: 08/01/17 10:10 Dose: 100 mg - Labs Labs: 07/31/17 06:00 07/31/17 19:00 PT 15.3 Seconds (9.8-13.1) H 07/18/17 05:30 INR 1.4 (0.9-1.2) H 07/18/17 05:30 APTT 34.2 Seconds (25.6-37.1) 07/18/17 05:30 - Constitutional Appears: Non-toxic, No Acute Distress - Eye Exam Eye Exam: Normal appearance. absent: Scleral icterus - ENT Exam ENT Exam: Mucous Membranes Moist - Respiratory Exam Respiratory Exam: Clear to Ausculation Bilateral. absent: Respiratory Distress - Cardiovascular Exam Cardiovascular Exam: RRR Additional comments: systolic murmur - GI/Abdominal Exam GI & Abdominal Exam: Soft. absent: Distended, Tenderness - Extremities Exam Additional comments: edema of dependent areas; - Neurological Exam Neurological Exam: Alert, Awake - Psychiatric Exam Psychiatric exam: Normal Mood. absent: Agitated - Skin Skin Exam: Warm. absent: Cyanosis Assessment and Plan (1) Chronic kidney disease, stage 3 (moderate) Assessment & Plan: Secondary to severe diabetic nephropathy with nephrotic sydrome; renal function stable lately after resolution of ATN; repeat 24 hr urine protein with patient on aggressive KEVIN blockade, BP control and other hemodynamicaly mediated anti- proteinuric measures; still with ~9g proteinuria; will continue same management for now; no role for immunosuppressive therapy; Status: Chronic (2) Acute renal failure Status: Resolved (3) Nephrotic syndrome Status: Chronic (4) Pleural effusion Assessment & Plan: Appears stable on exam; continuing with treatment of nephrotic syndrome and aggressive diuretics; Status: Chronic (5) Hypertensive CKD (chronic kidney disease) Assessment & Plan: BP control fluctuating; changes made recently with increased dose of cardizem; will continue to monitor; goal <130/80; Status: Acute (6) Hypothermia Status: Acute (7) Altered mental status Status: Acute (8) SIRS (systemic inflammatory response syndrome) Status: Acute (9) Anemia Assessment & Plan: Hgb increasing, holding EPO for now; Status: Chronic (10) Monoclonal gammopathy Status: Chronic (11) Hypernatremia Assessment & Plan: Stable, encourage PO fluid intake; Status: Acute
[2017-08-02] MEDS: Albuterol-Ipratrop 3 mg / 0.5 (3 ml) UD INH SCH ×5 (01:04→19:33)
[2017-08-02] MEDS: Levothyroxine 50 MCG TAB PO SCH (06:42)
[2017-08-02] MEDS: Insulin Regular 100 units/ml SC SCH ×4 (07:00→22:00)
[2017-08-02 07:02] LABS: BASO # 0.1 K/uL (0.0-0.2); BASO % 1.2 % (0.0-2.0); EOS # 0.2 K/uL (0.0-0.7); EOS % 2.1 % (0.0-4.0); HEMOGLOBIN 12.3 g/dL (12.0-18.0); LYMPH # 0.9 K/uL (1.0-4.3); LYMPH % 12.3 % (20.0-40.0); MEAN CELL VOLUME 90.4 fl (80.0-94.0); MEAN CORPUSCULAR HEMOGLOBIN 28.5 pg (27.0-31.0); MEAN CORPUSCULAR HGB CONC 31.5 g/dL (33.0-37.0); MEAN PLATELET VOLUME 10.4 fl (7.2-11.7); MONO # 0.5 K/uL (0.0-0.8); NEUT # 5.9 K/uL (1.8-7.0); NEUT % 78.4 % (50.0-75.0); NRBC % 0.1 % (0.0-0.0); RBC 4.32 Mil/uL (4.40-5.90); RED CELL DISTRIBUTION WIDTH 17.7 % (11.5-14.5); WHITE BLOOD COUNT 7.6 K/uL (4.8-10.8)
[2017-08-02 07:25] LABS: ALB/GLOB RATIO 0.8 (1.0-2.1); ALBUMIN 3.1 g/dL (3.5-5.0); CALCIUM 8.5 mg/dL (8.4-10.2)
[2017-08-02] MEDS: Acetylcysteine 20% Inhal Soln (4ml) INH SCH ×2 (09:15→19:28)
[2017-08-02] MEDS: Lidocaine 5% Patch TD SCH (09:26)
[2017-08-02] MEDS: diltiaZEM 180 mg/24 Hours CD Cap PO SCH (09:27)
[2017-08-02] MEDS: Bacitracin OINT 15GM TOP SCH (09:29)
--- NOTE | 2017-08-02 10:47 | CP.PCM.PN ---
Subjective - Date & Time of Evaluation Date of Evaluation: 08/02/17 Time of Evaluation: 09:00 - Subjective Subjective: Patient seen and examined bedside. There are no acute events overnight. The patient is laying comfortably in bed, NAD. Patient participated in PT yesterday. Patient complains of right sided chest discomfort where tubes were placed. Patient has pulmonary bed in use and sites of chest tubes healing appropriately. Patient denies headaches, chest pain, SOB, abdominal pain, nausea, vomiting, diarrhea, or fever. Objective - Vital Signs/Intake and Output Vital Signs (last 24 hours): Temp Pulse Resp BP Pulse Ox 98 F 89 20 149/75 98 08/02/17 08:32 08/02/17 08:32 08/02/17 08:32 08/02/17 09:40 08/02/17 08:32 Intake and Output: 08/02/17 08/02/17 06:59 18:59 Intake Total 50 Output Total 1 Balance 49 - Medications Medications: Current Medications Acetylcysteine (Acetylcysteine 20%) 2 ml INH RBID [facility] Last Admin: 08/02/17 09:15 Dose: Not Given Albuterol/Ipratropium (Duoneb 3 Mg/0.5 Mg (3 Ml) Ud) 3 ml INH RQ6 [facility] Last Admin: 08/02/17 08:09 Dose: 3 ml Amlodipine Besylate (Norvasc) 5 mg PO Q12H [facility] Last Admin: 08/02/17 09:28 Dose: 5 mg Bacitracin (Bacitracin Oint) 1 applic TOP DAILY [facility] Last Admin: 08/02/17 09:29 Dose: 1 applic Bumetanide (Bumex) 2 mg PO BID [facility] Calcium Acetate (Phoslo) 2,001 mg PO 0830,1200,1830 [facility] Last Admin: 07/14/17 12:26 Dose: 2,001 mg Dextrose (Dextrose 50% Inj) 0 ml IV STAT PRN; Protocol PRN Reason: Hypoglycemia Protocol Dextrose (Glutose 15) 0 gm PO ONCE PRN; Protocol PRN Reason: Hypoglycemia Protocol Dextrose (Dextrose 50% Inj) 50 ml IVP Q1H PRN PRN Reason: Hypoglycemia Dextrose (Dextrose 50% Inj) 0 ml IV STAT PRN; Protocol PRN Reason: Hypoglycemia Protocol Dextrose (Glutose 15) 0 gm PO ONCE PRN; Protocol PRN Reason: Hypoglycemia Protocol Diltiazem HCl (Cardizem Cd) 360 mg PO DAILY [facility] Last Admin: 08/02/17 09:27 Dose: 360 mg Fluconazole (Diflucan) 200 mg PO DAILY [facility] PRN Reason: Protocol Last Admin: 08/02/17 09:27 Dose: 200 mg Glucagon (Glucagen Diagnostic Kit) 0 mg IM STAT PRN; Protocol PRN Reason: Hypoglycemia Protocol Glucagon (Glucagen Diagnostic Kit) 0 mg IM STAT PRN; Protocol PRN Reason: Hypoglycemia Protocol Heparin Sodium (Porcine) (Heparin) 5,000 units SC Q12 [facility] PRN Reason: Protocol Last Admin: 08/02/17 09:28 Dose: 5,000 units Hydralazine HCl (Apresoline) 50 mg PO Q8 [facility] Last Admin: 08/02/17 09:28 Dose: 50 mg Insulin Human Regular (Humulin R) 0 units SC ACHS [facility] PRN Reason: Protocol Last Admin: 08/02/17 07:00 Dose: Not Given Levetiracetam (Keppra) 500 mg PO Q12H [facility] Last Admin: 08/02/17 09:28 Dose: 500 mg Levothyroxine Sodium (Synthroid) 50 mcg PO DAILY@0630 [facility] Last Admin: 08/02/17 06:42 Dose: 50 mcg Lidocaine (Lidoderm) 2 ea TD DAILY [facility] Last Admin: 08/02/17 09:26 Dose: 2 ea Lisinopril (Zestril) 40 mg PO DAILY [facility] Last Admin: 08/02/17 09:27 Dose: 40 mg Losartan Potassium (Cozaar) 25 mg PO DAILY [facility] Last Admin: 08/02/17 09:28 Dose: 25 mg Mirtazapine (Remeron) 30 mg PO HS [facility] Last Admin: 08/01/17 21:56 Dose: 30 mg Repaglinide (Prandin) 1 mg PO TIDAC [facility] Last Admin: 08/02/17 09:27 Dose: 1 mg Sodium Bicarbonate (Sodium Bicarbonate Tab) 1,300 mg PO Q8 [facility] Last Admin: 07/02/17 16:23 Dose: 1,300 mg Spironolactone (Aldactone) 25 mg PO BID [facility] Last Admin: 08/02/17 09:28 Dose: 25 mg Thiamine HCl (Vitamin B1 Tab) 100 mg PO DAILY [facility] Last Admin: 08/02/17 09:28 Dose: 100 mg - Labs Labs: 08/02/17 05:30 08/02/17 05:30 PT 15.3 Seconds (9.8-13.1) H 07/18/17 05:30 INR 1.4 (0.9-1.2) H 07/18/17 05:30 APTT 34.2 Seconds (25.6-37.1) 07/18/17 05:30 - Constitutional Appears: No Acute Distress - Head Exam Head Exam: ATRAUMATIC, NORMAL INSPECTION, NORMOCEPHALIC - Eye Exam Eye Exam: Normal appearance - ENT Exam ENT Exam: Mucous Membranes Moist - Neck Exam Neck Exam: Full ROM - Respiratory Exam Respiratory Exam: Decreased Breath Sounds. absent: Wheezes, Respiratory Distress - Cardiovascular Exam Cardiovascular Exam: REGULAR RHYTHM. absent: Tachycardia - GI/Abdominal Exam GI & Abdominal Exam: Soft, Normal Bowel Sounds. absent: Distended, Tenderness - Extremities Exam Extremities Exam: absent: Calf Tenderness, Tenderness - Neurological Exam Neurological Exam: Alert, Awake. absent: Oriented x3 - Skin Skin Exam: Dry, Warm Assessment and Plan - Assessment and Plan (Free Text) Assessment: 66 y/o man w/ pmh of HTN, DM, DM nephropathy, monoclonal gammopathy, recurrent L pleural effusion admitted for sepsis, Hypothermia, CHINTAN on CKD. Currently stable Plan: 1) Acute respiratory failure secondary to recurrent pleural effusions. Most likely 2/2 nephrotic syndrome. - Continuing to do well on 4LNC - c/w Chest PT Q4H via bed programming - Suctioning to induce coughing and removal of secretions Q4H - c/w Pulmonary recommendations for mucomyst, bronchodilator. - Will send for IR thoracentesis as clinically indicated - CT Surgery Consult, Dr Gannon, recommendations appreciated: Chest tubes discontinued, IR for thoracentesis PRN recollection. CT surgery sign off. - Pulmonary Consult, Dr Raymond, recommendations appreciated: Chest PT, bronchodilators, mucomyst, c/w current management - ID Consult, Dr Dolan, recommendations appreciated: d/c Cefepime, culture if febrile, c/w Fluconazole PO for 3wks more from (07/25/17) - Nephrology Consult, Dr Luz, recommendations appreciated: c/w medically controlling nephrotic syndrome with ACEI/CCB, Aldactone and Lasix started ( monitor for hyperkalemia), started on ARB. 2) HTN due to CKD - preCHF: Echo 05/31/17 normal EF 60-65% - Continuing to improve but renal function gradually worsening as is expected as per Nephrology - Nephrology Consult, Dr Luz, recommendations appreciated: c/w ACEI/Cardiazem /Spironolactone, ARB, Hydralazine, Lasix 3) Nephrotic Syndrome - electrolytes stable - biopsy 06/05/17- nodular glomerulosclerosis/ ~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 NO EVIDENCE OF MONOCLONAL LIGHT OR HEAVY CHAIN-RELATED RENAL DISEASE. - Renal duplex: no renal vein thrombosis - CKD stage 4: f/u Nephrology recs, monitor BUN/Cr - Anemia: remaining stable but no increase, EPO MWF - pt incontinent but voiding - 24 hour urine, protein 9487.5 - 24 hour urine, Cr 598.1 - 24 hour urine, Cr clearance 18.0 - as per nephrology: Secondary to severe diabetic nephropathy with nephrotic sydrome; renal function stable lately after resolution of ATN; repeat 24 hr urine protein with patient on aggressive KEVIN blockade, BP control and other hemodynamicaly mediated anti-proteinuric measures; still with ~9g proteinuria; will continue same management for now; no role for immunosuppressive therapy 4) Hypothyroidism - endocrinology recommendations appreciated - TSH 2.93 - c/w Synthroid 50 mcg PO daily 5) Prolactinemia - Prolactin 27.1 - improving, monitor for now 6) DM type 2 - prandin 1 mg PO TIDAC - SSI Lispro - Accu-checks - Hypoglycemic Bundle 7) Seizure - c/w Keppra 500mg, PO, Q12H - Neurology Consult, Dr Nicholas, recommendations appreciated: c/w Keppra, ASA being held, signed off 8) Skin breakdown - Skin tear: healing site on LEFT dorsum of hand, healing on lower back x2, - Sacral-Stage I: healing - c/w heal boots - c/w pressure off-loading 9) Depression - history of depression - on remeron 30 mg PO HS 10) Deconditioning - PT/OT consulted and following patient - Modified Dysphagia with thin liquids - Consult Dietary: Recommend 60g Protein and modified dysphagia 11) DVT prophylaxis - Heparin 5,000U, SC, Q12H dispo: contact psych social worker regarding initiation for possible guardianship
--- NOTE | 2017-08-02 11:18 | CP.PCM.PN ---
Subjective - Date & Time of Evaluation Date of Evaluation: 08/02/17 Time of Evaluation: 11:18 - Subjective Subjective: NO NEW PULMONARY FINDINGS NO SOB AT REST LUNGS-BIBASILAR DULLNESS HEART-S1S2 CXR-RECURRENT PLEURAL EFFUSIONS[STABLE] PLAN-NO FURTHER PULMONARY INTERVENTION FOR NOW WILL SIGN OFF CASE AND SEE AGAIN AT YOUR REQUEST Objective - Vital Signs/Intake and Output Vital Signs (last 24 hours): Temp Pulse Resp BP Pulse Ox 98 F 89 20 149/75 98 08/02/17 08:32 08/02/17 08:32 08/02/17 08:32 08/02/17 09:40 08/02/17 08:32 Intake and Output: 08/02/17 08/02/17 06:59 18:59 Intake Total 50 Output Total 1 Balance 49 - Medications Medications: Current Medications Acetylcysteine (Acetylcysteine 20%) 2 ml INH RBID [facility] Last Admin: 08/02/17 09:15 Dose: Not Given Albuterol/Ipratropium (Duoneb 3 Mg/0.5 Mg (3 Ml) Ud) 3 ml INH RQ6 [facility] Last Admin: 08/02/17 08:09 Dose: 3 ml Amlodipine Besylate (Norvasc) 5 mg PO Q12H [facility] Last Admin: 08/02/17 09:28 Dose: 5 mg Bacitracin (Bacitracin Oint) 1 applic TOP DAILY [facility] Last Admin: 08/02/17 09:29 Dose: 1 applic Bumetanide (Bumex) 2 mg PO BID [facility] Calcium Acetate (Phoslo) 2,001 mg PO 0830,1200,1830 [facility] Last Admin: 07/14/17 12:26 Dose: 2,001 mg Dextrose (Dextrose 50% Inj) 0 ml IV STAT PRN; Protocol PRN Reason: Hypoglycemia Protocol Dextrose (Glutose 15) 0 gm PO ONCE PRN; Protocol PRN Reason: Hypoglycemia Protocol Dextrose (Dextrose 50% Inj) 50 ml IVP Q1H PRN PRN Reason: Hypoglycemia Dextrose (Dextrose 50% Inj) 0 ml IV STAT PRN; Protocol PRN Reason: Hypoglycemia Protocol Dextrose (Glutose 15) 0 gm PO ONCE PRN; Protocol PRN Reason: Hypoglycemia Protocol Diltiazem HCl (Cardizem Cd) 360 mg PO DAILY [facility] Last Admin: 08/02/17 09:27 Dose: 360 mg Fluconazole (Diflucan) 200 mg PO DAILY [facility] PRN Reason: Protocol Last Admin: 08/02/17 09:27 Dose: 200 mg Glucagon (Glucagen Diagnostic Kit) 0 mg IM STAT PRN; Protocol PRN Reason: Hypoglycemia Protocol Glucagon (Glucagen Diagnostic Kit) 0 mg IM STAT PRN; Protocol PRN Reason: Hypoglycemia Protocol Heparin Sodium (Porcine) (Heparin) 5,000 units SC Q12 [facility] PRN Reason: Protocol Last Admin: 08/02/17 09:28 Dose: 5,000 units Hydralazine HCl (Apresoline) 50 mg PO Q8 [facility] Last Admin: 08/02/17 09:28 Dose: 50 mg Insulin Human Regular (Humulin R) 0 units SC ACHS [facility] PRN Reason: Protocol Last Admin: 08/02/17 07:00 Dose: Not Given Levetiracetam (Keppra) 500 mg PO Q12H [facility] Last Admin: 08/02/17 09:28 Dose: 500 mg Levothyroxine Sodium (Synthroid) 50 mcg PO DAILY@0630 [facility] Last Admin: 08/02/17 06:42 Dose: 50 mcg Lidocaine (Lidoderm) 2 ea TD DAILY [facility] Last Admin: 08/02/17 09:26 Dose: 2 ea Lisinopril (Zestril) 40 mg PO DAILY [facility] Last Admin: 08/02/17 09:27 Dose: 40 mg Losartan Potassium (Cozaar) 25 mg PO DAILY [facility] Last Admin: 08/02/17 09:28 Dose: 25 mg Mirtazapine (Remeron) 30 mg PO HS [facility] Last Admin: 08/01/17 21:56 Dose: 30 mg Repaglinide (Prandin) 1 mg PO TIDAC [facility] Last Admin: 08/02/17 09:27 Dose: 1 mg Sodium Bicarbonate (Sodium Bicarbonate Tab) 1,300 mg PO Q8 [facility] Last Admin: 07/02/17 16:23 Dose: 1,300 mg Spironolactone (Aldactone) 25 mg PO BID [facility] Last Admin: 08/02/17 09:28 Dose: 25 mg Thiamine HCl (Vitamin B1 Tab) 100 mg PO DAILY [facility] Last Admin: 08/02/17 09:28 Dose: 100 mg - Labs Labs: 08/02/17 05:30 08/02/17 05:30 PT 15.3 Seconds (9.8-13.1) H 01/19/18 05:30 INR 1.4 (0.9-1.2) H 07/18/17 05:30 APTT 34.2 Seconds (25.6-37.1) 07/18/17 05:30
[2017-08-03] MEDS: Albuterol-Ipratrop 3 mg / 0.5 (3 ml) UD INH SCH ×5 (01:08→19:39)
--- NOTE | 2017-08-03 05:58 | PCM.RRT ---
<Mohit Rod - Last Filed: 08/03/17 06:38> [employer] Nurse Assessment - Situation [employer] Responder Arrival Time: 11:12 [employer] Reason for Call: Respiratory Distress, O2 Saturation below 90% [employer] Called By: RN - IV IV Inserted during [employer]?: No - Respiratory Oxygen Delivery Method: Mask Received Nebulizer Treatments: Yes Was the Patient Ventilated with Bag/Mask 100% O2?: Yes Secretions Suctioned?: Yes Was the Patient Intubated?: No Was the Patient Placed on a Ventilator?: No - Ventilator Settings FIO2 (% Oxygen): 40 - Diagnostic Test Ordered EKG: Yes Chest X-Ray: Yes CPR started during [employer]?: No - [place] Coma Scale Coma Scale Eye Opening: Spontaneous Coma Scale Motor: Obeys Commands Movement - Recommendations [employer] Level of Care Recommendations: Transfer to Telemetry I.Reason for [employer] - A) Acute Change in Patient: (Select all that apply): Staff member or family is worried about patient Subjective: 66 y/o man w/ pmh of HTN, DM, DM nephropathy, monoclonal gammopathy, recurrent L pleural effusion admitted for sepsis, Hypothermia, CHINTAN on CKD had [employer] called this morning for hypoxia and witnessed seizure by RN. Patient was saturating below 80% and was started w/ bag mask ventilation. Patient improved O2 saturation with duoneb treatment at 97-99%. Intubation was considered but not done due to rapid response and improvement in saturation w/ treatment. Patient to be transferred to Tele for closer monitoring. - Neurological Status (Select all that apply): Alert, Responsive - Respiratory Oxygen Delivery Method: Face Mask @%, BiPAP @% - Constitutional Appears: No Acute Distress - Head Head Exam: ATRAUMATIC, NORMAL INSPECTION, NORMOCEPHALIC - Eyes Eye Exam: Normal appearance - Respiratory Exam Respiratory Exam: Decreased Breath Sounds, Rales, Respiratory Distress. absent : Rhonchi, Wheezes - Cardiovascular Exam Cardiovascular Exam: Murmur - GI/Abdominal Exam GI & Abdominal Exam: Soft, Tenderness. absent: Distended - Neurological Exam Neurological Exam: Alert, Awake - Extremities Exam Extremities Exam: absent: Calf Tenderness, Pedal Edema, Tenderness Plan - Assessment of Findings&Treatment Plan 66 y/o man w/ pmh of HTN, DM, DM nephropathy, monoclonal gammopathy, recurrent L pleural effusion admitted for sepsis, Hypothermia, CHINTAN on CKD had [employer] called this morning for hypoxia and witnessed seizure by RN. - transfer to Tele for closer monitoring - high flow nasal O2: 30L, 60% FiO2, 33 C - ABG - cbc - cmp - keppra level - duoneb - ativan prn <Jacobo Martins - Last Filed: 08/03/17 07:45> [employer] Nurse Assessment - Vital Signs Vital Signs: Rapid Response Vital Sign Blood Pressure 152/89 Pulse Rate 72 Respiratory Rate 6 Temperature 97.5 F Oxygen Saturation 43 - Vital Signs at end of [employer] Vital Signs at end of [employer]: Rapid Response End Vital Sign Blood Pressure 140/55 Pulse Rate 100 Respiratory Rate 33 Temperature 97.8 F O2 Sat by Pulse Oximetry 93 Attending/Attestation - Attestation I have personally seen and examined this patient.: No I have fully participated in the care of the patient.: No I have reviewed all pertinent clinical information, including history, physical exam and plan: No Notes (Text): 08/03/17 07:01 I saw and examined this patient shoulder to shoulder with Dr Rod. The assessment and Plan above represent my direct input. [employer] called on the patient who was having agonal respiration and Desaturation in Oxygenation to 70s I&P: #. Impending Repiratory Arrest r/o Post Ict5al The patient was given positive pressure ventilation with bag valve mask. A treatment with Duoneb was given and the patinte began to become active with improvement in his respiration and saturation improving to 96% with the Treatment. He became fully aroused Decision made not to Intubate but transfer the patient to the telemetry Unit and start him on High flow Oxygen. Total Critical Care time 35minutes Jacobo Martins MD
[2017-08-03] MEDS: Levothyroxine 50 MCG TAB PO SCH (06:00)
[2017-08-03] MEDS ORDERED: Albuterol-Ipratrop 3 mg / 0.5 (3 ml) UD INH STA (06:07)
[2017-08-03 06:20] LABS: ABG ALLEN TEST YES; ARTERIAL BLOOD GAS HCO3 29.5 mmol/L (21-28); ARTERIAL BLOOD GAS O2 CAPACITY 16.3 mL/dL (16-24); ARTERIAL BLOOD GAS O2 CONTENT 15.5 ML/dL (15-23); ARTERIAL BLOOD GAS O2 SAT 95.2 % (95-98); ARTERIAL BLOOD GAS PCO2 55 mm/Hg (35-45); ARTERIAL BLOOD GAS PH 7.38 (7.35-7.45); ARTERIAL BLOOD GAS PO2 72 mm/Hg (80-100); ARTERIAL BLOOD GAS TCO2 34.2 mmol/L (22-28)
[2017-08-03] MEDS: Insulin Regular 100 units/ml SC SCH ×4 (06:46→22:27)
--- NOTE | 2017-08-03 08:19 | CP.PCM.PN ---
Subjective - Date & Time of Evaluation Date of Evaluation: 08/03/17 Time of Evaluation: 08:00 - Subjective Subjective: Kris was seen and examined at bedside this morning. He was seen sitting upright at 60 degrees with NC on 2L O2. Pulm function bed to help with respiratory function. Objective - Vital Signs/Intake and Output Vital Signs (last 24 hours): Temp Pulse Resp BP Pulse Ox 98 F 102 H 24 125/55 L 96 08/03/17 06:16 08/03/17 06:16 08/03/17 06:20 08/03/17 06:16 08/03/17 06:16 - Medications Medications: Current Medications Acetylcysteine (Acetylcysteine 20%) 2 ml INH RBID [facility] [place] Last Admin: 08/02/17 19:28 Dose: Not Given Albuterol/Ipratropium (Duoneb 3 Mg/0.5 Mg (3 Ml) Ud) 3 ml INH RQ6 [facility] [place] Last Admin: 08/03/17 07:42 Dose: 3 ml Amlodipine Besylate (Norvasc) 5 mg PO Q12H [facility] [place] Last Admin: 08/02/17 21:35 Dose: 5 mg Bacitracin (Bacitracin Oint) 1 applic TOP DAILY [facility] [place] Last Admin: 08/02/17 09:29 Dose: 1 applic Bumetanide (Bumex) 2 mg PO BID [facility] [place] Last Admin: 08/02/17 17:35 Dose: 2 mg Calcium Acetate (Phoslo) 2,001 mg PO 0830,1200,1830 [facility] [place] Last Admin: 07/14/17 12:26 Dose: 2,001 mg Dextrose (Dextrose 50% Inj) 0 ml IV STAT PRN; Protocol PRN Reason: Hypoglycemia Protocol Dextrose (Glutose 15) 0 gm PO ONCE PRN; Protocol PRN Reason: Hypoglycemia Protocol Dextrose (Dextrose 50% Inj) 50 ml IVP Q1H PRN PRN Reason: Hypoglycemia Dextrose (Dextrose 50% Inj) 0 ml IV STAT PRN; Protocol PRN Reason: Hypoglycemia Protocol Dextrose (Glutose 15) 0 gm PO ONCE PRN; Protocol PRN Reason: Hypoglycemia Protocol Diltiazem HCl (Cardizem Cd) 360 mg PO DAILY [facility] [place] Last Admin: 08/02/17 09:27 Dose: 360 mg Fluconazole (Diflucan) 200 mg PO DAILY [facility] PRN Reason: Protocol Last Admin: 02/03/18 09:27 Dose: 200 mg Glucagon (Glucagen Diagnostic Kit) 0 mg IM STAT PRN; Protocol PRN Reason: Hypoglycemia Protocol Glucagon (Glucagen Diagnostic Kit) 0 mg IM STAT PRN; Protocol PRN Reason: Hypoglycemia Protocol Heparin Sodium (Porcine) (Heparin) 5,000 units SC Q12 [facility] PRN Reason: Protocol Last Admin: 08/02/17 21:34 Dose: 5,000 units Hydralazine HCl (Apresoline) 50 mg PO Q8 [facility] [place] Last Admin: 08/03/17 01:22 Dose: Not Given Insulin Human Regular (Humulin R) 0 units SC ACHS [facility] PRN Reason: Protocol Last Admin: 08/03/17 06:46 Dose: Not Given Levetiracetam (Keppra) 500 mg PO Q12H [facility] [place] Last Admin: 08/02/17 21:34 Dose: 500 mg Levothyroxine Sodium (Synthroid) 50 mcg PO DAILY@0630 [facility] [place] Last Admin: 08/03/17 06:00 Dose: Not Given Lidocaine (Lidoderm) 2 ea TD DAILY [facility] [place] Last Admin: 08/02/17 09:26 Dose: 2 ea Lisinopril (Zestril) 40 mg PO DAILY [facility] [place] Last Admin: 08/02/17 09:27 Dose: 40 mg Lorazepam (Ativan) 2 mg IVP Q6 PRN PRN Reason: Seizure activity Losartan Potassium (Cozaar) 25 mg PO DAILY [facility] [place] Last Admin: 08/02/17 09:28 Dose: 25 mg Mirtazapine (Remeron) 30 mg PO HS [facility] [place] Last Admin: 08/02/17 21:34 Dose: 30 mg Repaglinide (Prandin) 1 mg PO TIDAC [facility] [place] Last Admin: 08/02/17 17:35 Dose: 1 mg Sodium Bicarbonate (Sodium Bicarbonate Tab) 1,300 mg PO Q8 [facility] [place] Last Admin: 07/02/17 16:23 Dose: 1,300 mg Spironolactone (Aldactone) 25 mg PO BID [facility] [place] Last Admin: 08/02/17 17:35 Dose: 25 mg Thiamine HCl (Vitamin B1 Tab) 100 mg PO DAILY [facility] [place] Last Admin: 08/02/17 09:28 Dose: 100 mg - Labs Labs: 08/02/17 05:30 08/02/17 05:30 PT 15.3 Seconds (9.8-13.1) H 07/18/17 05:30 INR 1.4 (0.9-1.2) H 07/18/17 05:30 APTT 34.2 Seconds (25.6-37.1) 07/18/17 05:30 - Constitutional Appears: No Acute Distress - Eye Exam Eye Exam: EOMI, Normal appearance - Neck Exam Neck Exam: Full ROM - Respiratory Exam Respiratory Exam: Wheezes Additional comments: crackles heard on lung bases - Cardiovascular Exam Cardiovascular Exam: REGULAR RHYTHM, +S1, +S2 - GI/Abdominal Exam GI & Abdominal Exam: Soft, Normal Bowel Sounds - Neurological Exam Neurological Exam: Awake, CN II-XII Intact - Psychiatric Exam Psychiatric exam: Normal Affect, Normal Mood Assessment and Plan - Assessment and Plan (Free Text) Plan: 66 y/o man w/ pmh of HTN, DM, DM nephropathy, monoclonal gammopathy, recurrent L pleural effusion admitted for sepsis, Hypothermia, CHINTAN on CKD. Plan: 1) Acute respiratory failure secondary to recurrent pleural effusions. Most likely 2/2 nephrotic syndrome. - Continuing to do well on 4LNC; and high flow O2 - c/w Chest PT Q4H via bed programming - Suctioning to induce coughing and removal of secretions Q4H - c/w Pulmonary recommendations for mucomyst, bronchodilator. - Will send for IR thoracentesis as clinically indicated - CT Surgery Consult, Dr Gannon, recommendations appreciated: Chest tubes discontinued, IR for thoracentesis PRN recollection. CT surgery sign off. - Pulmonary Consult, Dr Raymond, recommendations appreciated: Chest PT, bronchodilators, mucomyst, c/w current management - ID Consult, Dr Dolan, recommendations appreciated: d/c Cefepime, culture if febrile, c/w Fluconazole PO for 3wks more from (07/25/17) - Nephrology Consult, Dr Luz, recommendations appreciated: c/w medically controlling nephrotic syndrome with ACEI/CCB, Aldactone and Lasix started ( monitor for hyperkalemia), started on ARB. 2) HTN due to CKD - preCHF: Echo 05/31/17 normal EF 60-65% - Continuing to improve but renal function gradually worsening as is expected as per Nephrology - Nephrology Consult, Dr Luz, recommendations appreciated: c/w ACEI/Cardiazem /Spironolactone, ARB, Hydralazine, Lasix 3) Nephrotic Syndrome - electrolytes stable - biopsy 06/05/17- nodular glomerulosclerosis/ ~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 NO EVIDENCE OF MONOCLONAL LIGHT OR HEAVY CHAIN-RELATED RENAL DISEASE. - Renal duplex: no renal vein thrombosis - CKD stage 4: f/u Nephrology recs, monitor BUN/Cr - Anemia: remaining stable but no increase, EPO MWF - pt incontinent but voiding - 24 hour urine, protein 9487.5 - 24 hour urine, Cr 598.1 - 24 hour urine, Cr clearance 18.0 - as per nephrology: Secondary to severe diabetic nephropathy with nephrotic sydrome; renal function stable lately after resolution of ATN; repeat 24 hr urine protein with patient on aggressive KEVIN blockade, BP control and other hemodynamicaly mediated anti-proteinuric measures; still with ~9g proteinuria; will continue same management for now; no role for immunosuppressive therapy 4) Hypothyroidism - endocrinology recommendations appreciated - TSH 2.93 - c/w Synthroid 50 mcg PO daily 5) Prolactinemia - Prolactin 27.1 - improving, monitor for now 6) DM type 2 - prandin 1 mg PO TIDAC - SSI Lispro - Accu-checks - Hypoglycemic Bundle 7) Seizure - c/w Keppra 500mg, PO, Q12H - Neurology Consult, Dr Nicholas, recommendations appreciated: c/w Keppra, ASA being held, signed off 8) Skin breakdown - Skin tear: healing site on LEFT dorsum of hand, healing on lower back x2, - Sacral-Stage I: healing - c/w heal boots - c/w pressure off-loading 9) Depression - history of depression - on remeron 30 mg PO HS 10) Deconditioning - PT/OT consulted and following patient - Modified Dysphagia with thin liquids - Consult Dietary: Recommend 60g Protein and modified dysphagia 11) DVT prophylaxis - Heparin 5,000U, SC, Q12H dispo: contact social service coordinator regarding initiation for possible guardianship
[2017-08-03] MEDS: Bacitracin OINT 15GM TOP SCH (08:44)
[2017-08-03] MEDS: diltiaZEM 180 mg/24 Hours CD Cap PO SCH (08:44)
[2017-08-03] MEDS: Lidocaine 5% Patch TD SCH (08:49)
--- NOTE | 2017-08-03 09:52 | RAD ---
HISTORY: Hypoxia/SOB COMPARISON: Chest radiograph dated 07/30/2017. FINDINGS: LUNGS: Pulmonary vascular congestion. Bibasilar atelectasis. PLEURA: Stable small to moderate right and moderate to large left pleural effusions no pneumothorax apparent. CARDIOVASCULAR: Atherosclerotic aortic calcifications. Cardiomediastinal silhouette stably enlarged. OSSEOUS STRUCTURES: Unchanged. VISUALIZED UPPER ABDOMEN: Normal. OTHER FINDINGS: Left subclavian access central venous catheter, unchanged. IMPRESSION: Stable small to moderate right and moderate to large left pleural effusions. No significant interval change.
[2017-08-03 11:01] LABS: HEMOGLOBIN 12.4 g/dL (12.0-18.0); MEAN CELL VOLUME 91.7 fl (80.0-94.0); MEAN CORPUSCULAR HEMOGLOBIN 28.4 pg (27.0-31.0); RBC 4.38 Mil/uL (4.40-5.90); RED CELL DISTRIBUTION WIDTH 18.5 % (11.5-14.5); WHITE BLOOD COUNT 15.8 K/uL (4.8-10.8)
[2017-08-03 11:18] LABS: ALB/GLOB RATIO 0.8 (1.0-2.1); CALCIUM 8.8 mg/dL (8.4-10.2)
[2017-08-03 12:27] LABS: ABG ALLEN TEST YES; ARTERIAL BLOOD GAS HCO3 31.1 mmol/L (21-28); ARTERIAL BLOOD GAS HEMOGLOBIN 12.2 g/dL (11.7-17.4); ARTERIAL BLOOD GAS O2 CAPACITY 16.5 mL/dL (16-24); ARTERIAL BLOOD GAS O2 CONTENT 15.3 ML/dL (15-23); ARTERIAL BLOOD GAS O2 SAT 92.5 % (95-98); ARTERIAL BLOOD GAS PCO2 48 mm/Hg (35-45); ARTERIAL BLOOD GAS PH 7.45 (7.35-7.45); ARTERIAL BLOOD GAS PO2 59 mm/Hg (80-100); ARTERIAL BLOOD GAS TCO2 34.9 mmol/L (22-28)
[2017-08-03] MEDS: Cefepime 1 GM in Sodium Chloride 0.9% 100 ML IVPB SCH (17:26)
[2017-08-03] MEDS: Sodium Chloride 0.45% 1,000 ML IV SCH (17:27)
--- NOTE | 2017-08-03 19:32 | PN ---
ENDOCRINOLOGY FOLLOWUP NOTE DATE: ROOM: 663. SUBJECTIVE: This is a 66-year-old male with recent uncontrolled type 2 insulin-requiring diabetes now being followed closely for metabolic management. His glycemic levels are fluctuating as noted overnight with glucose levels ranging from 218-233 mg/dL. The latest chemistry showed a BUN of 55, sodium 150, potassium 4.1, chloride 106, CO2 of 33, glucose 213 and creatinine 2.8. So at this time because of the supervening hyperglycemic accelerations, we will start him once again on basal insulin with Levemir to be given as 12 units subcu at bedtime daily to start tonight. We will also increase the Prandin to 2 mg p.o. t.i.d. before meals to start today as ordered. We will continue the levothyroxine given as 50 mcg once daily as ordered. We will titrate incrementally as indicated to optimize metabolic control. We will follow and advise accordingly. Bettina Mann MD
[2017-08-03] MEDS: Acetylcysteine 20% Inhal Soln (4ml) INH SCH (19:40)
[2017-08-03] MEDS ORDERED: Insulin Detemir 100 Units/ml Inj SC SCH (22:00)
[2017-08-04] MEDS: Albuterol-Ipratrop 3 mg / 0.5 (3 ml) UD INH SCH ×4 (01:10→19:35)
[2017-08-04] MEDS: Dextrose 50% SYRINGE Inj (50 ml) IV PRN ×2 (05:45→11:36)
[2017-08-04] MEDS: Sodium Chloride 0.45% 1,000 ML IV SCH (06:17)
[2017-08-04 06:19] LABS: HEMOGLOBIN 9.4 g/dL (12.0-18.0); MEAN CELL VOLUME 92.5 fl (80.0-94.0); MEAN CORPUSCULAR HEMOGLOBIN 28.3 pg (27.0-31.0); MEAN CORPUSCULAR HGB CONC 30.6 g/dL (33.0-37.0); RBC 3.31 Mil/uL (4.40-5.90); RED CELL DISTRIBUTION WIDTH 17.9 % (11.5-14.5); WHITE BLOOD COUNT 12.6 K/uL (4.8-10.8)
[2017-08-04] MEDS: Levothyroxine 50 MCG TAB PO SCH (06:19)
[2017-08-04] MEDS: Acetylcysteine 20% Inhal Soln (4ml) INH SCH ×2 (07:49→19:35)
[2017-08-04] MEDS ORDERED: Dextrose 5%/0.9% NS 1,000 ML IV SCH (08:45)
[2017-08-04] MEDS ORDERED: Dextrose 5%/0.45% NS 1,000 ML IV SCH (09:00)
--- NOTE | 2017-08-04 09:02 | CP.PCM.PN ---
Subjective - Date & Time of Evaluation Date of Evaluation: 08/04/17 Time of Evaluation: 07:30 - Subjective Subjective: Patient seen and examined bedside. The patient was hypoglycemic overnight. The patient is laying in bed on BiPap, NAD. Patient complains of right sided chest discomfort where tubes were placed. Patient has pulmonary bed in use and sites of chest tubes healing appropriately. Objective - Vital Signs/Intake and Output Vital Signs (last 24 hours): Temp Pulse Resp BP Pulse Ox 96.2 F L 66 20 131/61 98 08/04/17 08:00 08/04/17 08:00 08/04/17 08:00 08/04/17 08:00 08/04/17 08:00 - Medications Medications: Current Medications Acetylcysteine (Acetylcysteine 20%) 2 ml INH RBID [facility] Last Admin: 08/04/17 07:49 Dose: 2 ml Albuterol/Ipratropium (Duoneb 3 Mg/0.5 Mg (3 Ml) Ud) 3 ml INH RQ6 [facility] Last Admin: 08/04/17 07:49 Dose: 3 ml Amlodipine Besylate (Norvasc) 5 mg PO Q12H [facility] Last Admin: 08/03/17 22:31 Dose: 5 mg Bacitracin (Bacitracin Oint) 1 applic TOP DAILY [facility] Last Admin: 08/03/17 08:44 Dose: 1 applic Bumetanide (Bumex) 2 mg PO DAILY [facility] Calcium Acetate (Phoslo) 2,001 mg PO 0830,1200,1830 [facility] Last Admin: 07/14/17 12:26 Dose: 2,001 mg Dextrose (Dextrose 50% Inj) 0 ml IV STAT PRN; Protocol PRN Reason: Hypoglycemia Protocol Last Admin: 08/04/17 05:45 Dose: 50 ml Dextrose (Glutose 15) 0 gm PO ONCE PRN; Protocol PRN Reason: Hypoglycemia Protocol Dextrose (Dextrose 50% Inj) 50 ml IVP Q1H PRN PRN Reason: Hypoglycemia Dextrose (Dextrose 50% Inj) 0 ml IV STAT PRN; Protocol PRN Reason: Hypoglycemia Protocol Dextrose (Glutose 15) 0 gm PO ONCE PRN; Protocol PRN Reason: Hypoglycemia Protocol Diltiazem HCl (Cardizem Cd) 360 mg PO DAILY [facility] Last Admin: 08/03/17 08:44 Dose: 360 mg Fluconazole (Diflucan) 200 mg PO DAILY [facility] PRN Reason: Protocol Last Admin: 08/03/17 08:46 Dose: 200 mg Glucagon (Glucagen Diagnostic Kit) 0 mg IM STAT PRN; Protocol PRN Reason: Hypoglycemia Protocol Glucagon (Glucagen Diagnostic Kit) 0 mg IM STAT PRN; Protocol PRN Reason: Hypoglycemia Protocol Heparin Sodium (Porcine) (Heparin) 5,000 units SC Q12 [facility] PRN Reason: Protocol Last Admin: 08/03/17 22:33 Dose: 5,000 units Cefepime HCl 1 gm/ Sodium (Chloride) 100 mls @ 100 mls/hr IVPB DAILY [facility] PRN Reason: Protocol Last Admin: 08/03/17 17:26 Dose: 100 mls/hr Dextrose/Sodium Chloride (Dextrose 5%/0.45% Ns 1000 Ml) 1,000 mls @ 60 mls/hr IV .[id number] [facility] Stop: 08/05/17 08:49 Insulin Detemir (Levemir) 12 units SC HS [facility] Last Admin: 08/03/17 22:32 Dose: 12 units Insulin Human Regular (Humulin R) 0 units SC ACHS [facility] PRN Reason: Protocol Last Admin: 08/03/17 22:27 Dose: Not Given Levetiracetam (Keppra) 500 mg PO Q12H [facility] Last Admin: 08/03/17 22:31 Dose: 500 mg Levothyroxine Sodium (Synthroid) 50 mcg PO DAILY@0630 [facility] Last Admin: 08/04/17 06:19 Dose: 50 mcg Lidocaine (Lidoderm) 2 ea TD DAILY [facility] Last Admin: 08/03/17 08:49 Dose: 2 ea Lisinopril (Zestril) 40 mg PO DAILY [facility] Last Admin: 08/03/17 08:46 Dose: 40 mg Lorazepam (Ativan) 2 mg IVP Q6 PRN PRN Reason: Seizure activity Losartan Potassium (Cozaar) 25 mg PO DAILY [facility] Last Admin: 08/03/17 08:45 Dose: 25 mg Mirtazapine (Remeron) 30 mg PO HS [facility] Last Admin: 08/03/17 22:32 Dose: 30 mg Ondansetron HCl (Zofran Inj) 4 mg IVP Q6 PRN PRN Reason: Nausea/Vomiting Repaglinide (Prandin) 2 mg PO TIDAC [facility] Last Admin: 08/03/17 17:28 Dose: 2 mg Sodium Bicarbonate (Sodium Bicarbonate Tab) 1,300 mg PO Q8 [facility] Last Admin: 07/02/17 16:23 Dose: 1,300 mg Spironolactone (Aldactone) 25 mg PO BID [facility] Last Admin: 08/03/17 17:28 Dose: 25 mg Thiamine HCl (Vitamin B1 Tab) 100 mg PO DAILY [facility] Last Admin: 08/03/17 08:46 Dose: 100 mg - Labs Labs: 08/04/17 05:41 08/04/17 05:41 PT 15.3 Seconds (9.8-13.1) H 07/18/17 05:30 INR 1.4 (0.9-1.2) H 07/18/17 05:30 APTT 34.2 Seconds (25.6-37.1) 07/18/17 05:30 - Constitutional Appears: No Acute Distress - Head Exam Head Exam: ATRAUMATIC, NORMAL INSPECTION, NORMOCEPHALIC - Eye Exam Eye Exam: Normal appearance - Neck Exam Neck Exam: absent: Tenderness - Respiratory Exam Respiratory Exam: Wheezes. absent: Respiratory Distress Additional comments: mild crackles heard on lung bases, on BiPap - Cardiovascular Exam Cardiovascular Exam: REGULAR RHYTHM, Murmur Additional comments: systolic murmur - GI/Abdominal Exam GI & Abdominal Exam: Soft, Normal Bowel Sounds. absent: Distended, Tenderness - Extremities Exam Extremities Exam: absent: Calf Tenderness, Pedal Edema, Tenderness - Neurological Exam Neurological Exam: Alert, Awake. absent: Oriented x3 - Skin Skin Exam: Dry Assessment and Plan - Assessment and Plan (Free Text) Assessment: 66 y/o man w/ pmh of HTN, DM, DM nephropathy, monoclonal gammopathy, recurrent L pleural effusion admitted for sepsis, Hypothermia, CHINTAN on CKD. Plan: 1) Acute respiratory failure secondary to recurrent pleural effusions. Most likely 2/2 nephrotic syndrome. - s/p [employer] 08/03, transferred to [facility] - on BiPap, saturating 98% - bumetanide 2 mg PO daily - cefepime 1 gm IV daily restarted due to elevated WBC - therapuetic thoracocentesis w/ IR today - c/w Chest PT Q4H via bed programming - Suctioning to induce coughing and removal of secretions Q4H - c/w Pulmonary recommendations for mucomyst, bronchodilator - CT Surgery Consult, Dr Gannon, recommendations appreciated: Chest tubes discontinued, IR for thoracentesis PRN recollection. CT surgery sign off. - Pulmonary Consult, Dr Raymond, recommendations appreciated: Chest PT, bronchodilators, mucomyst, c/w current management - ID Consult, Dr Dolan, recommendations appreciated: d/c Cefepime, culture if febrile, c/w Fluconazole PO for 3wks more from (07/25/17) - Nephrology Consult, Dr Luz, recommendations appreciated: c/w medically controlling nephrotic syndrome with ACEI/CCB, Aldactone and Lasix started ( monitor for hyperkalemia), started on ARB. 2) Hypoglycemia - patient blood glucose <20 overnight - given d50 as per hypoglycemic protocol - patient poor PO intake - started on IVF D5W @ 60 mL/hr - monitor for acute changes 3) HTN due to CKD - preCHF: Echo 05/31/17 normal EF 60-65% - Continuing to improve but renal function gradually worsening as is expected as per Nephrology - Nephrology Consult, Dr Luz, recommendations appreciated: c/w ACEI/Cardiazem /Spironolactone, ARB, Hydralazine, Lasix 4) Nephrotic Syndrome - electrolytes stable - biopsy 06/05/17- nodular glomerulosclerosis/ ~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 NO EVIDENCE OF MONOCLONAL LIGHT OR HEAVY CHAIN-RELATED RENAL DISEASE. - Renal duplex: no renal vein thrombosis - CKD stage 4: f/u Nephrology recs, monitor BUN/Cr - Anemia: remaining stable but no increase, EPO MWF - pt incontinent but voiding - 24 hour urine, protein 9487.5 - 24 hour urine, Cr 598.1 - 24 hour urine, Cr clearance 18.0 - as per nephrology: Secondary to severe diabetic nephropathy with nephrotic sydrome; renal function stable lately after resolution of ATN; repeat 24 hr urine protein with patient on aggressive KEVIN blockade, BP control and other hemodynamicaly mediated anti-proteinuric measures; still with ~9g proteinuria; will continue same management for now; no role for immunosuppressive therapy 5) Hypothyroidism - endocrinology recommendations appreciated - TSH 2.93 - c/w Synthroid 50 mcg PO daily 6) Prolactinemia - Prolactin 27.1 - improving, monitor for now 7) DM type 2 - prandin 1 mg PO TIDAC - reduced levemir to 5 units SC HS - SSI Lispro - Accu-checks - Hypoglycemic Bundle 8) Seizure - c/w Keppra 500mg, PO, Q12H - Neurology Consult, Dr Nicholas, recommendations appreciated: c/w Keppra, ASA being held, signed off 9) Skin breakdown - Skin tear: healing site on LEFT dorsum of hand, healing on lower back x2, - Sacral-Stage I: healing - c/w heal boots - c/w pressure off-loading 10) Depression - history of depression - on remeron 30 mg PO HS 11) Deconditioning - PT/OT consulted and following patient - Modified Dysphagia with thin liquids - Consult Dietary: Recommend 60g Protein and modified dysphagia 12) DVT prophylaxis - Heparin 5,000U, SC, Q12H dispo: contact clinical social worker regarding initiation for possible guardianship
--- NOTE | 2017-08-04 09:24 | PN ---
ENDOCRINOLOGY FOLLOWUP NOTE DATE: LOCATION: In room 663. SUBJECTIVE: This is a 66-year-old male with recent acute respiratory failure and underlying pleural effusion and has since then improved clinically and hemodynamically as noted thereof. His glycemic levels are fluctuating, but much improved at this time and the glucose levels have ranged from 76 to 150 and 179 mg/dL. His latest chemistry showed a BUN of 37, sodium 145, potassium 3.7, chloride 107, CO2 of 28, glucose 123, and creatinine 2.2. So, at this time, we will continue the low-dose oral hypoglycemic drug therapy as given with Prandin given as 1 mg p.o. t.i.d. before meals as ordered. We will continue also the low-dose levothyroxine given as 50 mcg once daily as ordered. We will titrate incremental as indicated to optimize metabolic control. We will follow. Bettina Mann MD
[2017-08-04] MEDS: Cefepime 1 GM in Sodium Chloride 0.9% 100 ML IVPB SCH (10:43)
[2017-08-04] MEDS: Bacitracin OINT 15GM TOP SCH (10:47)
[2017-08-04] MEDS: Insulin Regular 100 units/ml SC SCH ×4 (10:48→22:50)
[2017-08-04] MEDS: Lidocaine 5% Patch TD SCH (10:48)
[2017-08-04] MEDS: diltiaZEM 180 mg/24 Hours CD Cap PO SCH (11:39)
[2017-08-04] MEDS ORDERED: Insulin Detemir 100 Units/ml Inj SC SCH (11:41)
[2017-08-04 12:54] LABS: MEAN CELL VOLUME 91.5 fl (80.0-94.0); MEAN CORPUSCULAR HEMOGLOBIN 28.3 pg (27.0-31.0); MEAN CORPUSCULAR HGB CONC 30.9 g/dL (33.0-37.0); RBC 3.89 Mil/uL (4.40-5.90); RED CELL DISTRIBUTION WIDTH 18.1 % (11.5-14.5); WHITE BLOOD COUNT 12.7 K/uL (4.8-10.8)
[2017-08-04] MEDS ORDERED: Lidocaine 1% Inj (20ml) ONE (14:07)
--- NOTE | 2017-08-04 14:26 | PCM.SURG1 ---
Surgeon's Initial Post Op Note - Surgeon's Notes Surgeon: Jermaine Malik MD Plasterer Maintenance: None Type of Anesthesia: Local Pre-Operative Diagnosis: symptomatic pleural effusions Operative Findings: large right pleural effusion Post-Operative Diagnosis: same Operation Performed: Ultrasound guided RIGHT thoracentesis Specimen/Specimens Removed: 1.2 liters serosanguinous fluid removed Estimated Blood Loss: EBL {In ML}: 0 Date of Surgery/Procedure: 08/04/17 Time of Surgery/Procedure: 14:15
--- NOTE | 2017-08-04 20:17 | CP.PCM.PN ---
Subjective - Date & Time of Evaluation Date of Evaluation: 08/04/17 Time of Evaluation: 12:00 - Subjective Subjective: Patient with increasing shortness of breath, had to be put on high flow O2/BIPAP ;not eating much; Objective - Vital Signs/Intake and Output Vital Signs (last 24 hours): Temp Pulse Resp BP Pulse Ox 97.3 F L 77 20 137/55 L 99 08/04/17 20:10 08/04/17 20:10 08/04/17 20:10 08/04/17 20:10 08/04/17 20:10 Intake and Output: 08/04/17 08/05/17 18:59 06:59 Intake Total 600 Balance 600 - Medications Medications: Current Medications Acetylcysteine (Acetylcysteine 20%) 2 ml INH RBID [facility] Last Admin: 08/04/17 19:35 Dose: 2 ml Albuterol/Ipratropium (Duoneb 3 Mg/0.5 Mg (3 Ml) Ud) 3 ml INH RQ6 [facility] Last Admin: 08/04/17 19:35 Dose: 3 ml Amlodipine Besylate (Norvasc) 5 mg PO Q12H [facility] Last Admin: 08/04/17 11:38 Dose: 5 mg Bacitracin (Bacitracin Oint) 1 applic TOP DAILY [facility] Last Admin: 08/04/17 10:47 Dose: 1 applic Bumetanide (Bumex) 2 mg PO DAILY [facility] Calcium Acetate (Phoslo) 2,001 mg PO 0830,1200,1830 [facility] Last Admin: 07/14/17 12:26 Dose: 2,001 mg Dextrose (Dextrose 50% Inj) 0 ml IV STAT PRN; Protocol PRN Reason: Hypoglycemia Protocol Last Admin: 08/04/17 11:36 Dose: 50 ml Dextrose (Glutose 15) 0 gm PO ONCE PRN; Protocol PRN Reason: Hypoglycemia Protocol Dextrose (Dextrose 50% Inj) 50 ml IVP Q1H PRN PRN Reason: Hypoglycemia Dextrose (Dextrose 50% Inj) 0 ml IV STAT PRN; Protocol PRN Reason: Hypoglycemia Protocol Dextrose (Glutose 15) 0 gm PO ONCE PRN; Protocol PRN Reason: Hypoglycemia Protocol Diltiazem HCl (Cardizem Cd) 360 mg PO DAILY [facility] Last Admin: 08/04/17 11:39 Dose: 360 mg Fluconazole (Diflucan) 200 mg PO DAILY [facility] PRN Reason: Protocol Last Admin: 08/04/17 11:38 Dose: 200 mg Glucagon (Glucagen Diagnostic Kit) 0 mg IM STAT PRN; Protocol PRN Reason: Hypoglycemia Protocol Glucagon (Glucagen Diagnostic Kit) 0 mg IM STAT PRN; Protocol PRN Reason: Hypoglycemia Protocol Heparin Sodium (Porcine) (Heparin) 5,000 units SC Q12 [facility] PRN Reason: Protocol Last Admin: 08/04/17 10:46 Dose: 5,000 units Cefepime HCl 1 gm/ Sodium (Chloride) 100 mls @ 100 mls/hr IVPB DAILY [facility] PRN Reason: Protocol Last Admin: 08/04/17 10:43 Dose: 100 mls/hr Dextrose (Dextrose 5% In Water 1000 Ml) 1,000 mls @ 60 mls/hr IV .[id number] [facility] Stop: 08/05/17 12:02 Last Admin: 08/04/17 13:00 Dose: 60 mls/hr Insulin Human Regular (Humulin R) 0 units SC ACHS [facility] PRN Reason: Protocol Last Admin: 08/04/17 17:52 Dose: Not Given Levetiracetam (Keppra) 500 mg PO Q12H [facility] Last Admin: 08/04/17 11:38 Dose: 500 mg Levothyroxine Sodium (Synthroid) 50 mcg PO DAILY@0630 [facility] Last Admin: 08/04/17 06:19 Dose: 50 mcg Lidocaine (Lidoderm) 2 ea TD DAILY [facility] Last Admin: 08/04/17 10:48 Dose: 2 ea Lisinopril (Zestril) 40 mg PO DAILY [facility] Last Admin: 08/04/17 11:40 Dose: 40 mg Lorazepam (Ativan) 2 mg IVP Q6 PRN PRN Reason: Seizure activity Losartan Potassium (Cozaar) 25 mg PO DAILY [facility] Last Admin: 08/04/17 11:37 Dose: 25 mg Mirtazapine (Remeron) 30 mg PO HS [facility] Last Admin: 08/03/17 22:32 Dose: 30 mg Ondansetron HCl (Zofran Inj) 4 mg IVP Q6 PRN PRN Reason: Nausea/Vomiting Repaglinide (Prandin) 2 mg PO TIDAC [facility] Last Admin: 08/04/17 17:53 Dose: Not Given Sodium Bicarbonate (Sodium Bicarbonate Tab) 1,300 mg PO Q8 [facility] Last Admin: 07/02/17 16:23 Dose: 1,300 mg Spironolactone (Aldactone) 25 mg PO BID [facility] Last Admin: 08/04/17 11:40 Dose: 25 mg Thiamine HCl (Vitamin B1 Tab) 100 mg PO DAILY [facility] Last Admin: 08/04/17 11:39 Dose: 100 mg - Labs Labs: 08/04/17 12:30 08/04/17 05:41 PT 15.3 Seconds (9.8-13.1) H 07/18/17 05:30 INR 1.4 (0.9-1.2) H 07/18/17 05:30 APTT 34.2 Seconds (25.6-37.1) 07/18/17 05:30 - Constitutional Appears: Non-toxic, No Acute Distress - Eye Exam Eye Exam: absent: Scleral icterus - ENT Exam ENT Exam: Mucous Membranes Moist - Respiratory Exam Additional comments: mildly tachypneic, decreased breath sounds at bases; - Cardiovascular Exam Cardiovascular Exam: RRR, +S1, +S2 - GI/Abdominal Exam GI & Abdominal Exam: Soft. absent: Distended, Tenderness - Extremities Exam Additional comments: edema of dependent areas; - Psychiatric Exam Psychiatric exam: absent: Agitated - Skin Skin Exam: Warm. absent: Cyanosis Assessment and Plan (1) Chronic kidney disease, stage 3 (moderate) Assessment & Plan: Mild increases in serum creatinine hemodynamically mediated; low PO intake so will hold loop diuretics temporarily; Status: Chronic (2) Acute renal failure Status: Resolved (3) Nephrotic syndrome Assessment & Plan: Severe proteinuria despite efforts to control it; continue KEVIN blockade and aggressive BP control; Status: Chronic (4) Pleural effusion Assessment & Plan: Recurrent despite being on aggressive diuretic regimen; awaiting thoracentesis; no half-way solution; Status: Chronic (5) Hypertensive CKD (chronic kidney disease) Assessment & Plan: BP overall better controlled, continue current meds; Status: Acute (6) Hypothermia Status: Acute (7) Altered mental status Status: Acute (8) SIRS (systemic inflammatory response syndrome) Status: Acute (9) Anemia Assessment & Plan: Hgb stable, holding EPO temporarily, will restart at lower dose; Status: Chronic (10) Monoclonal gammopathy Status: Chronic (11) Hypernatremia Assessment & Plan: Relatively stable, will change IVF to D5W at 60 cc/hr (1/2NS started yesterday to avoid hyperglycemia); Status: Acute
--- NOTE | 2017-08-04 20:17 | PN ---
ENDOCRINOLOGY FOLLOWUP NOTE DATE: LOCATION: In room 414. SUBJECTIVE: This is a 66-year-old male with recent uncontrolled type 2 insulin-requiring diabetes, apparently was kept n.p.o. with variable and nil oral intake subsequent to that and developed supervening hypoglycemic levels overnight as noted. The glucose values have ranged from less than 20 to 23 and 119 and 195 mg/dL. LABORATORY DATA: The latest chemistry showed a BUN of 59, sodium of 149, potassium of 3.7, chloride of 110, CO2 of 31, glucose of 158, and creatinine of 2.5. ASSESSMENT AND PLAN: So, at this time, we will discontinue the Levemir for now, which was lowered from 10 to 5 units subtaneously once daily as ordered. We will continue the oral hypoglycemic therapy with Prandin given as 2 mg p.o. t.i.d. before meals as ordered. We will titrate incremental as indicated to optimize metabolic control. We will continue also the low-dose correction scale using regular insulin as ordered. Bettina Mann MD
[2017-08-05] MEDS: Albuterol-Ipratrop 3 mg / 0.5 (3 ml) UD INH SCH ×4 (01:03→19:37)
[2017-08-05] MEDS: Levothyroxine 50 MCG TAB PO SCH (07:02)
[2017-08-05] MEDS: Insulin Regular 100 units/ml SC SCH ×4 (07:03→21:27)
[2017-08-05] MEDS: Acetylcysteine 20% Inhal Soln (4ml) INH SCH ×3 (07:43→19:37)
--- NOTE | 2017-08-05 08:53 | CP.PCM.PN ---
Subjective - Date & Time of Evaluation Date of Evaluation: 08/05/17 Time of Evaluation: 08:30 - Subjective Subjective: Patient seen and examined bedside. The patient's blood sugars now elevated, last glucose was 159. The patient is laying in bed on high flow NC, NAD. The patient is more awake and verbal this morning. Patient complains of right sided chest discomfort where tubes were placed. Patient has pulmonary bed in use and sites of chest tubes healing appropriately. Objective - Vital Signs/Intake and Output Vital Signs (last 24 hours): Temp Pulse Resp BP Pulse Ox 97.8 F 76 18 145/63 98 08/05/17 08:48 08/05/17 08:48 08/05/17 08:48 08/05/17 08:48 08/05/17 08:48 Intake and Output: 08/05/17 08/05/17 06:59 18:59 Intake Total 660 Output Total 300 Balance 360 - Medications Medications: Current Medications Acetylcysteine (Acetylcysteine 20%) 2 ml INH RBID [facility] Last Admin: 08/04/17 19:35 Dose: 2 ml Albuterol/Ipratropium (Duoneb 3 Mg/0.5 Mg (3 Ml) Ud) 3 ml INH RQ6 [facility] Last Admin: 08/05/17 07:43 Dose: 3 ml Amlodipine Besylate (Norvasc) 5 mg PO Q12H [facility] Last Admin: 08/04/17 22:49 Dose: 5 mg Bacitracin (Bacitracin Oint) 1 applic TOP DAILY [facility] Last Admin: 08/04/17 10:47 Dose: 1 applic Bumetanide (Bumex) 2 mg PO DAILY [facility] Calcium Acetate (Phoslo) 2,001 mg PO 0830,1200,1830 [facility] Last Admin: 07/14/17 12:26 Dose: 2,001 mg Dextrose (Dextrose 50% Inj) 0 ml IV STAT PRN; Protocol PRN Reason: Hypoglycemia Protocol Last Admin: 08/04/17 11:36 Dose: 50 ml Dextrose (Glutose 15) 0 gm PO ONCE PRN; Protocol PRN Reason: Hypoglycemia Protocol Dextrose (Dextrose 50% Inj) 50 ml IVP Q1H PRN PRN Reason: Hypoglycemia Dextrose (Dextrose 50% Inj) 0 ml IV STAT PRN; Protocol PRN Reason: Hypoglycemia Protocol Dextrose (Glutose 15) 0 gm PO ONCE PRN; Protocol PRN Reason: Hypoglycemia Protocol Diltiazem HCl (Cardizem Cd) 360 mg PO DAILY [facility] Last Admin: 08/04/17 11:39 Dose: 360 mg Fluconazole (Diflucan) 200 mg PO DAILY [facility] PRN Reason: Protocol Last Admin: 08/04/17 11:38 Dose: 200 mg Glucagon (Glucagen Diagnostic Kit) 0 mg IM STAT PRN; Protocol PRN Reason: Hypoglycemia Protocol Glucagon (Glucagen Diagnostic Kit) 0 mg IM STAT PRN; Protocol PRN Reason: Hypoglycemia Protocol Heparin Sodium (Porcine) (Heparin) 5,000 units SC Q12 [facility] PRN Reason: Protocol Last Admin: 08/04/17 22:00 Dose: 5,000 units Cefepime HCl 1 gm/ Sodium (Chloride) 100 mls @ 100 mls/hr IVPB DAILY [facility] PRN Reason: Protocol Last Admin: 08/04/17 10:43 Dose: 100 mls/hr Dextrose (Dextrose 5% In Water 1000 Ml) 1,000 mls @ 60 mls/hr IV .[id number] [facility] Stop: 08/05/17 12:02 Last Admin: 08/05/17 05:00 Dose: 60 mls/hr Insulin Human Regular (Humulin R) 0 units SC ACHS [facility] PRN Reason: Protocol Last Admin: 08/05/17 07:03 Dose: Not Given Levetiracetam (Keppra) 500 mg PO Q12H [facility] Last Admin: 08/04/17 22:49 Dose: 500 mg Levothyroxine Sodium (Synthroid) 50 mcg PO DAILY@0630 [facility] Last Admin: 08/05/17 07:02 Dose: Not Given Lidocaine (Lidoderm) 2 ea TD DAILY [facility] Last Admin: 08/04/17 10:48 Dose: 2 ea Lisinopril (Zestril) 40 mg PO DAILY [facility] Last Admin: 08/04/17 11:40 Dose: 40 mg Lorazepam (Ativan) 2 mg IVP Q6 PRN PRN Reason: Seizure activity Losartan Potassium (Cozaar) 25 mg PO DAILY [facility] Last Admin: 08/04/17 11:37 Dose: 25 mg Mirtazapine (Remeron) 30 mg PO HS [facility] Last Admin: 08/04/17 22:50 Dose: 30 mg Ondansetron HCl (Zofran Inj) 4 mg IVP Q6 PRN PRN Reason: Nausea/Vomiting Repaglinide (Prandin) 2 mg PO TIDAC [facility] Last Admin: 08/04/17 17:53 Dose: Not Given Sodium Bicarbonate (Sodium Bicarbonate Tab) 1,300 mg PO Q8 [facility] Last Admin: 07/02/17 16:23 Dose: 1,300 mg Spironolactone (Aldactone) 25 mg PO BID [facility] Last Admin: 08/04/17 11:40 Dose: 25 mg Thiamine HCl (Vitamin B1 Tab) 100 mg PO DAILY [facility] Last Admin: 08/04/17 11:39 Dose: 100 mg - Labs Labs: 08/04/17 12:30 08/04/17 05:41 PT 15.3 Seconds (9.8-13.1) H 07/18/17 05:30 INR 1.4 (0.9-1.2) H 07/18/17 05:30 APTT 34.2 Seconds (25.6-37.1) 07/18/17 05:30 - Constitutional Appears: No Acute Distress - Head Exam Head Exam: ATRAUMATIC, NORMAL INSPECTION, NORMOCEPHALIC - ENT Exam ENT Exam: Mucous Membranes Moist - Neck Exam Neck Exam: Full ROM - Respiratory Exam Respiratory Exam: Wheezes. absent: Respiratory Distress Additional comments: mild crackles heard on lung bases, on high flow NC - Cardiovascular Exam Cardiovascular Exam: REGULAR RHYTHM, Murmur Additional comments: systolic murmur - GI/Abdominal Exam GI & Abdominal Exam: Soft, Normal Bowel Sounds. absent: Distended, Tenderness - Extremities Exam Extremities Exam: absent: Calf Tenderness, Pedal Edema, Tenderness - Neurological Exam Neurological Exam: Alert, Awake - Skin Skin Exam: Dry, Normal Color, Warm Assessment and Plan - Assessment and Plan (Free Text) Assessment: 66 y/o man w/ pmh of HTN, DM, DM nephropathy, monoclonal gammopathy, recurrent L pleural effusion admitted for sepsis, Hypothermia, CHINTAN on CKD. Plan: 1) Acute respiratory failure secondary to recurrent pleural effusions. Most likely 2/2 nephrotic syndrome. 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 CT surgery sign off. - Pulmonary Consult, Dr Raymond, recommendations appreciated: Chest PT, bronchodilators, mucomyst, c/w current management - ID Consult, Dr Dolan, recommendations appreciated: d/c Cefepime, culture if febrile, c/w Fluconazole PO for 3wks more from (07/25/17) - Nephrology Consult, Dr Luz, recommendations appreciated: c/w medically controlling nephrotic syndrome with ACEI/CCB, Aldactone and Lasix started ( monitor for hyperkalemia), started on ARB. 2) Hypoglycemia - resolved - patient blood glucose 159 - given d50 as per hypoglycemic protocol - patient poor PO intake - started on IVF D5W @ 60 mL/hr - monitor for acute changes - consider DC D5W if patient taking PO 3) HTN due to CKD - preCHF: Echo 05/31/17 normal EF 60-65% - Continuing to improve but renal function gradually worsening as is expected as per Nephrology - Nephrology Consult, Dr Luz, recommendations appreciated: c/w ACEI/Cardiazem /Spironolactone, ARB, Hydralazine, Lasix 4) Nephrotic Syndrome - electrolytes stable - biopsy 06/05/17- nodular glomerulosclerosis/ ~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 NO EVIDENCE OF MONOCLONAL LIGHT OR HEAVY CHAIN-RELATED RENAL DISEASE. - Renal duplex: no renal vein thrombosis - CKD stage 4: f/u Nephrology recs, monitor BUN/Cr - Anemia: remaining stable but no increase, EPO MWF - pt incontinent but voiding - 24 hour urine, protein 9487.5 - 24 hour urine, Cr 598.1 - 24 hour urine, Cr clearance 18.0 - as per nephrology: Secondary to severe diabetic nephropathy with nephrotic sydrome; renal function stable lately after resolution of ATN; repeat 24 hr urine protein with patient on aggressive KEVIN blockade, BP control and other hemodynamicaly mediated anti-proteinuric measures; still with ~9g proteinuria; will continue same management for now; no role for immunosuppressive therapy 5) Hypothyroidism - endocrinology recommendations appreciated - TSH 2.93 - c/w Synthroid 50 mcg PO daily 6) Prolactinemia - Prolactin 27.1 - improving, monitor for now 7) DM type 2 - prandin 1 mg PO TIDAC - reduced levemir to 5 units SC HS - SSI Lispro - Accu-checks - Hypoglycemic Bundle 8) Seizure - c/w Keppra 500mg, PO, Q12H - Neurology Consult, Dr Nicholas, recommendations appreciated: c/w Keppra, ASA being held, signed off 9) Skin breakdown - Skin tear: healing site on LEFT dorsum of hand, healing on lower back x2, - Sacral-Stage I: healing - c/w heal boots - c/w pressure off-loading 10) Depression - history of depression - on remeron 30 mg PO HS - psych re-consulted for decision making capacity, recommendations appreciated: patient does not have capacity to make medical decisions at this time 11) Deconditioning - PT/OT consulted and following patient - Modified Dysphagia with thin liquids - Consult Dietary: Recommend 60g Protein and modified dysphagia 12) DVT prophylaxis - Heparin 5,000U, SC, Q12H dispo: contact social group worker regarding initiation for possible guardianship
[2017-08-05 09:02] LABS: ABG ALLEN TEST YES; ARTERIAL BLOOD GAS HCO3 26.6 mmol/L (21-28); ARTERIAL BLOOD GAS HEMOGLOBIN 11.7 g/dL (11.7-17.4); ARTERIAL BLOOD GAS O2 CAPACITY 15.9 mL/dL (16-24); ARTERIAL BLOOD GAS O2 CONTENT 15.2 ML/dL (15-23); ARTERIAL BLOOD GAS O2 SAT 95.3 % (95-98); ARTERIAL BLOOD GAS PCO2 43 mm/Hg (35-45); ARTERIAL BLOOD GAS PH 7.41 (7.35-7.45); ARTERIAL BLOOD GAS PO2 66 mm/Hg (80-100); ARTERIAL BLOOD GAS TCO2 28.6 mmol/L (22-28)
[2017-08-05] MEDS: Cefepime 1 GM in Sodium Chloride 0.9% 100 ML IVPB SCH (09:12)
[2017-08-05] MEDS: Lidocaine 5% Patch TD SCH (09:17)
[2017-08-05] MEDS: diltiaZEM 180 mg/24 Hours CD Cap PO SCH (09:18)
[2017-08-05] MEDS: Bacitracin OINT 15GM TOP SCH (09:19)
--- NOTE | 2017-08-05 14:28 | CP.PCM.CON ---
History of Present Illness - History of Present Illness History of Present Illness: Psychiatry consult follow-up note Patient previously seen by Dr. Guy on 07/18/17 and was found to lack capacity to make medical decisions at that time. HPI: 66 year old male with PMH of HTN, DM, CKD, w/ nephrotic syndrome, monoclonal gammopathy, recurrent L pleural effusion, admitted with hypothermia, and altered mental status. Patient then had subsequent respiratory failure requiring intubation, now extubated. Patient is unable to engage in conversation appropriately. He is alert and makes eye contact, but does not answer the questions asked. He can not state the location or date. He can not explain why he is in the hospital, nor can he understand or explain the risks or benefits of treatment. MSE: A + O x 1, good eye contact, soft speech, thought process- incoherent, non- linear, unable to appropriately answer questions about mood or psychosis, but has not been observed to be internally preoccupied and responding to internal stimuli. Poor insight/judgment. Impression: 66 yo male, w/ likely neurocognitive impairment, does not have capacity to make medical decisions at this time. Past Patient History - Infectious Disease Hx of Infectious Diseases: None - Tetanus Immunizations Tetanus Immunization: Unknown - Past Medical History & Family History Past Medical History?: Yes - Past Social History Alcohol: None Drugs: Denies - CARDIAC Hx Cardiac Disorders: Yes Hx Hypertension: Yes - PULMONARY Hx Chronic Obstructive Pulmonary Disease (COPD): No - NEUROLOGICAL HX Cerebrovascular Accident: No - HEENT Hx HEENT Problems: No - RENAL Hx Renal Failure: Yes (CKD stage 3, nephrotic syndrome) - ENDOCRINE/METABOLIC Hx Diabetes Mellitus Type 2: Yes - HEMATOLOGICAL/ONCOLOGICAL Hx Anemia: Yes Hx Human Immunodeficiency Virus (HIV): No Hx Sickle Cell Disease: No - INTEGUMENTARY Hx Dermatological Problems: No - MUSCULOSKELETAL/RHEUMATOLOGICAL Hx Arthritis: No Hx Rheumatoid Arthritis: No - GASTROINTESTINAL Hx Crohn's Disease: No Hx Diverticulitis: No Hx Gall Bladder Disease: No Hx Gastritis: No Hx Pancreatitis: No - GENITOURINARY/GYNECOLOGICAL Hx Genitourinary Disorders: No - PSYCHIATRIC Hx Anxiety: Yes Hx Bipolar Disorder: Yes Hx Depression: Yes Hx Paranoia: No Hx Post Traumatic Stress Disorder: No Hx Schizophrenia: No - SURGICAL HISTORY Hx Surgeries: No - ANESTHESIA Hx Anesthesia: Yes Hx Anesthesia Reactions: No Hx Malignant Hyperthermia: No Meds Allergies/Adverse Reactions: Allergies Allergy/AdvReac Type Severity Reaction Status Date / Time No Known Allergies Allergy Verified 05/21/17 16:02 - Medications Medications: Current Medications Acetylcysteine (Acetylcysteine 20%) 2 ml INH RBID [facility] Last Admin: 08/05/17 08:56 Dose: 2 ml Albuterol/Ipratropium (Duoneb 3 Mg/0.5 Mg (3 Ml) Ud) 3 ml INH RQ6 [facility] Last Admin: 08/05/17 14:00 Dose: 3 ml Amlodipine Besylate (Norvasc) 5 mg PO Q12H [facility] Last Admin: 08/05/17 09:17 Dose: 5 mg Bacitracin (Bacitracin Oint) 1 applic TOP DAILY [facility] Last Admin: 08/05/17 09:19 Dose: 1 applic Bumetanide (Bumex) 2 mg PO DAILY [facility] Calcium Acetate (Phoslo) 2,001 mg PO 0830,1200,1830 [facility] Last Admin: 07/14/17 12:26 Dose: 2,001 mg Dextrose (Dextrose 50% Inj) 0 ml IV STAT PRN; Protocol PRN Reason: Hypoglycemia Protocol Last Admin: 08/04/17 11:36 Dose: 50 ml Dextrose (Glutose 15) 0 gm PO ONCE PRN; Protocol PRN Reason: Hypoglycemia Protocol Dextrose (Dextrose 50% Inj) 50 ml IVP Q1H PRN PRN Reason: Hypoglycemia Dextrose (Dextrose 50% Inj) 0 ml IV STAT PRN; Protocol PRN Reason: Hypoglycemia Protocol Dextrose (Glutose 15) 0 gm PO ONCE PRN; Protocol PRN Reason: Hypoglycemia Protocol Diltiazem HCl (Cardizem Cd) 360 mg PO DAILY [facility] Last Admin: 08/05/17 09:18 Dose: 360 mg Fluconazole (Diflucan) 200 mg PO DAILY [facility] PRN Reason: Protocol Last Admin: 08/05/17 09:21 Dose: 200 mg Glucagon (Glucagen Diagnostic Kit) 0 mg IM STAT PRN; Protocol PRN Reason: Hypoglycemia Protocol Glucagon (Glucagen Diagnostic Kit) 0 mg IM STAT PRN; Protocol PRN Reason: Hypoglycemia Protocol Heparin Sodium (Porcine) (Heparin) 5,000 units SC Q12 [facility] PRN Reason: Protocol Last Admin: 08/05/17 09:17 Dose: 5,000 units Cefepime HCl 1 gm/ Sodium (Chloride) 100 mls @ 100 mls/hr IVPB DAILY [facility] PRN Reason: Protocol Last Admin: 08/05/17 09:12 Dose: 100 mls/hr Insulin Human Regular (Humulin R) 0 units SC ACHS [facility] PRN Reason: Protocol Last Admin: 08/05/17 12:27 Dose: 3 units Levetiracetam (Keppra) 500 mg PO Q12H [facility] Last Admin: 08/05/17 09:21 Dose: 500 mg Levothyroxine Sodium (Synthroid) 50 mcg PO DAILY@0630 [facility] Last Admin: 08/05/17 07:02 Dose: Not Given Lidocaine (Lidoderm) 2 ea TD DAILY [facility] Last Admin: 08/05/17 09:17 Dose: Not Given Lisinopril (Zestril) 40 mg PO DAILY [facility] Last Admin: 08/05/17 09:15 Dose: 40 mg Lorazepam (Ativan) 2 mg IVP Q6 PRN PRN Reason: Seizure activity Losartan Potassium (Cozaar) 25 mg PO DAILY [facility] Last Admin: 08/05/17 09:18 Dose: 25 mg Mirtazapine (Remeron) 30 mg PO HS [facility] Last Admin: 08/04/17 22:50 Dose: 30 mg Ondansetron HCl (Zofran Inj) 4 mg IVP Q6 PRN PRN Reason: Nausea/Vomiting Repaglinide (Prandin) 2 mg PO TIDAC [facility] Last Admin: 08/05/17 12:28 Dose: 2 mg Sodium Bicarbonate (Sodium Bicarbonate Tab) 1,300 mg PO Q8 [facility] Last Admin: 07/02/17 16:23 Dose: 1,300 mg Spironolactone (Aldactone) 25 mg PO BID [facility] Last Admin: 08/04/17 11:40 Dose: 25 mg Thiamine HCl (Vitamin B1 Tab) 100 mg PO DAILY [facility] Last Admin: 08/05/17 09:16 Dose: 100 mg Results - Vital Signs Recent Vital Signs: Last Vital Signs Temp 97.5 F L 08/05/17 13:00 Pulse 73 08/05/17 13:00 Resp 18 08/05/17 13:00 BP 133/63 08/05/17 13:00 Pulse Ox 98 08/05/17 13:00 - Labs Result Diagrams: 08/04/17 12:30 08/04/17 05:41 Labs: Laboratory Results - last 24 hr 08/04/17 08/04/17 08/05/17 17:17 21:58 05:49 pCO2 pO2 HCO3 ABG pH ABG Total CO2 ABG O2 Saturation ABG O2 Content ABG Base Excess ABG Hemoglobin ABG Carboxyhemoglobin POC ABG HHb (Measured) ABG Methemoglobin ABG O2 Capacity Andry Test A-a O2 Difference Hgb O2 Saturation FiO2 POC Glucose (mg/dL) 195 H 225 H 159 H 08/05/17 08/05/17 08:52 11:36 pCO2 43 pO2 66 L HCO3 26.6 ABG pH 7.41 ABG Total CO2 28.6 H ABG O2 Saturation 95.3 ABG O2 Content 15.2 ABG Base Excess 2.3 ABG Hemoglobin 11.7 ABG Carboxyhemoglobin 1.5 POC ABG HHb (Measured) 4.6 ABG Methemoglobin 1.6 ABG O2 Capacity 15.9 L Andry Test Yes A-a O2 Difference 308.0 Hgb O2 Saturation 92.3 L FiO2 60.0 POC Glucose (mg/dL) 259 H
--- NOTE | 2017-08-05 19:11 | CP.PCM.PN ---
Subjective - Date & Time of Evaluation Date of Evaluation: 08/05/17 Time of Evaluation: 19:09 - Subjective Subjective: 66 yo M w/ pmh of htn, dm, CKD IIIB w/ nephrotic syndrome from DM nephropathy, recurrent pleural effusions; s/p 1.2L removed via R lung thoracentesis yesterday; per nursing staff, ate all his food today; is continent and urinating well; denies shortness of breath currently; Objective - Vital Signs/Intake and Output Vital Signs (last 24 hours): Temp Pulse Resp BP Pulse Ox 97.4 F L 70 20 128/50 L 98 08/05/17 16:12 08/05/17 16:12 08/05/17 18:20 08/05/17 16:12 08/05/17 16:12 Intake and Output: 08/05/17 08/06/17 18:59 06:59 Intake Total 1840 Balance 1840 - Medications Medications: Current Medications Acetylcysteine (Acetylcysteine 20%) 2 ml INH RBID [facility] Last Admin: 08/05/17 08:56 Dose: 2 ml Albuterol/Ipratropium (Duoneb 3 Mg/0.5 Mg (3 Ml) Ud) 3 ml INH RQ6 [facility] Last Admin: 08/05/17 14:00 Dose: 3 ml Amlodipine Besylate (Norvasc) 5 mg PO Q12H [facility] Last Admin: 08/05/17 09:17 Dose: 5 mg Bacitracin (Bacitracin Oint) 1 applic TOP DAILY [facility] Last Admin: 08/05/17 09:19 Dose: 1 applic Bumetanide (Bumex) 2 mg PO DAILY [facility] Bumetanide (Bumex) 1 mg PO BID [facility] Calcium Acetate (Phoslo) 2,001 mg PO 0830,1200,1830 [facility] Last Admin: 07/14/17 12:26 Dose: 2,001 mg Dextrose (Dextrose 50% Inj) 0 ml IV STAT PRN; Protocol PRN Reason: Hypoglycemia Protocol Last Admin: 08/04/17 11:36 Dose: 50 ml Dextrose (Glutose 15) 0 gm PO ONCE PRN; Protocol PRN Reason: Hypoglycemia Protocol Dextrose (Dextrose 50% Inj) 50 ml IVP Q1H PRN PRN Reason: Hypoglycemia Dextrose (Dextrose 50% Inj) 0 ml IV STAT PRN; Protocol PRN Reason: Hypoglycemia Protocol Dextrose (Glutose 15) 0 gm PO ONCE PRN; Protocol PRN Reason: Hypoglycemia Protocol Diltiazem HCl (Cardizem Cd) 360 mg PO DAILY [facility] Last Admin: 08/05/17 09:18 Dose: 360 mg Fluconazole (Diflucan) 200 mg PO DAILY [facility] PRN Reason: Protocol Last Admin: 08/05/17 09:21 Dose: 200 mg Glucagon (Glucagen Diagnostic Kit) 0 mg IM STAT PRN; Protocol PRN Reason: Hypoglycemia Protocol Glucagon (Glucagen Diagnostic Kit) 0 mg IM STAT PRN; Protocol PRN Reason: Hypoglycemia Protocol Heparin Sodium (Porcine) (Heparin) 5,000 units SC Q12 [facility] PRN Reason: Protocol Last Admin: 08/05/17 09:17 Dose: 5,000 units Cefepime HCl 1 gm/ Sodium (Chloride) 100 mls @ 100 mls/hr IVPB DAILY [facility] PRN Reason: Protocol Last Admin: 08/05/17 09:12 Dose: 100 mls/hr Insulin Human Regular (Humulin R) 0 units SC ACHS [facility] PRN Reason: Protocol Last Admin: 08/05/17 16:42 Dose: Not Given Levetiracetam (Keppra) 500 mg PO Q12H [facility] Last Admin: 08/05/17 09:21 Dose: 500 mg Levothyroxine Sodium (Synthroid) 50 mcg PO DAILY@0630 [facility] Last Admin: 08/05/17 07:02 Dose: Not Given Lidocaine (Lidoderm) 2 ea TD DAILY [facility] Last Admin: 08/05/17 09:17 Dose: Not Given Lisinopril (Zestril) 40 mg PO DAILY [facility] Last Admin: 08/05/17 09:15 Dose: 40 mg Lorazepam (Ativan) 2 mg IVP Q6 PRN PRN Reason: Seizure activity Losartan Potassium (Cozaar) 25 mg PO DAILY [facility] Last Admin: 08/05/17 09:18 Dose: 25 mg Mirtazapine (Remeron) 30 mg PO HS [facility] Last Admin: 08/04/17 22:50 Dose: 30 mg Ondansetron HCl (Zofran Inj) 4 mg IVP Q6 PRN PRN Reason: Nausea/Vomiting Repaglinide (Prandin) 2 mg PO TIDAC [facility] Last Admin: 08/05/17 16:43 Dose: Not Given Sodium Bicarbonate (Sodium Bicarbonate Tab) 1,300 mg PO Q8 [facility] Last Admin: 07/02/17 16:23 Dose: 1,300 mg Spironolactone (Aldactone) 25 mg PO BID [facility] Last Admin: 08/04/17 11:40 Dose: 25 mg Thiamine HCl (Vitamin B1 Tab) 100 mg PO DAILY [facility] Last Admin: 08/05/17 09:16 Dose: 100 mg - Labs Labs: 08/04/17 12:30 08/04/17 05:41 PT 15.3 Seconds (9.8-13.1) H 07/18/17 05:30 INR 1.4 (0.9-1.2) H 07/18/17 05:30 APTT 34.2 Seconds (25.6-37.1) 07/18/17 05:30 - Constitutional Appears: Non-toxic, No Acute Distress - Eye Exam Eye Exam: Normal appearance. absent: Scleral icterus - ENT Exam ENT Exam: Mucous Membranes Moist - Respiratory Exam Respiratory Exam: absent: Respiratory Distress Additional comments: decreased breath sounds at L base; - Cardiovascular Exam Cardiovascular Exam: RRR, +S1, +S2 - GI/Abdominal Exam GI & Abdominal Exam: Soft. absent: Distended, Tenderness - Exam Exam: absent: Bladder Distension - Extremities Exam Additional comments: edema of dependent areas; - Neurological Exam Neurological Exam: Alert, Awake - Psychiatric Exam Psychiatric exam: absent: Agitated - Skin Skin Exam: Warm. absent: Cyanosis Assessment and Plan (1) Chronic kidney disease, stage 3 (moderate) Assessment & Plan: Relatively stable renal function with some hemodynamically mediated fluctuations in serum creatinine; goal is to continue anti-proteinuric measures ; will restart diuretics tomorrow since patient just started eating today; Status: Chronic (2) Acute renal failure Status: Resolved (3) Nephrotic syndrome Status: Chronic (4) Pleural effusion Assessment & Plan: Unfortunately recurring despite being on aggressive diuresis; will likely need repeated thoracentesis; Status: Chronic (5) Hypertensive CKD (chronic kidney disease) Assessment & Plan: BP relatively well controlled; restarting diuretics tomorrow with lower bumex dose, 1 mg bid, and aldactone 25 mg bid; Status: Acute (6) Hypothermia Status: Acute (7) Altered mental status Status: Acute (8) SIRS (systemic inflammatory response syndrome) Assessment & Plan: On cefepime 1 g daily, dosed for renal insufficiency; no renal dose adjustment for fluconazole; Status: Acute (9) Anemia Assessment & Plan: Holding EPO, monitor hgb, will restart once <11g; Status: Chronic (10) Monoclonal gammopathy Status: Chronic (11) Hypernatremia Assessment & Plan: No repeat bmp available; D5W given overnight; encouraging patient to drink more water; Status: Acute
--- NOTE | 2017-08-05 21:25 | PN ---
ENDOCRINOLOGY FOLLOWUP NOTE DATE: LOCATION: In room 414. SUBJECTIVE: This is a 66-year-old male with recent uncontrolled type 2 insulin requiring diabetes, now being followed closely for metabolic management. He had previous acute respiratory failure with bilateral pleural effusion as noted. His glucose values are variable, but improved because also of the of his oral intake and the glucose values today have ranged from 159 to 259 and 225 mg/dL. ASSESSMENT AND PLAN: So, at this time, we will discontinue the Levemir given overnight to await administration manager hypoglycemia. We will continue however the Prandin given as 2 mg p.o. t.i.d. before meals as ordered. We will continue also the low-dose levothyroxine given as 50 mcg once daily as given. We will obtain serial chemistry and supplement accordingly as needed. We will follow. Bettina Mann MD
[2017-08-06] MEDS: Albuterol-Ipratrop 3 mg / 0.5 (3 ml) UD INH SCH ×4 (01:02→19:27)
[2017-08-06] MEDS: Levothyroxine 50 MCG TAB PO SCH (06:10)
[2017-08-06 06:45] LABS: HEMOGLOBIN 10.5 g/dL (12.0-18.0); MEAN CELL VOLUME 89.2 fl (80.0-94.0); MEAN CORPUSCULAR HEMOGLOBIN 27.9 pg (27.0-31.0); MEAN CORPUSCULAR HGB CONC 31.2 g/dL (33.0-37.0); RBC 3.76 Mil/uL (4.40-5.90); RED CELL DISTRIBUTION WIDTH 17.3 % (11.5-14.5); WHITE BLOOD COUNT 7.3 K/uL (4.8-10.8)
[2017-08-06 07:07] LABS: CALCIUM 7.6 mg/dL (8.4-10.2)
[2017-08-06] MEDS: Acetylcysteine 20% Inhal Soln (4ml) INH SCH ×2 (08:18→19:26)
--- NOTE | 2017-08-06 09:06 | CP.PCM.PN ---
Subjective - Date & Time of Evaluation Date of Evaluation: 08/06/17 Time of Evaluation: 07:45 - Subjective Subjective: Patient seen and examined bedside. The patient's blood sugars stable, last glucose was 119. The patient is laying in bed on high flow NC, NAD. Patient to be switched to NC 4 L. The patient is awake and verbal this morning. Patient has pulmonary bed in use and sites of chest tubes healing appropriately. Objective - Vital Signs/Intake and Output Vital Signs (last 24 hours): Temp Pulse Resp BP Pulse Ox 98.8 F 78 18 132/56 L 92 L 08/06/17 08:08 08/06/17 08:08 08/06/17 08:32 08/06/17 08:08 08/06/17 08:08 Intake and Output: 08/06/17 08/06/17 06:59 18:59 Intake Total 40 Balance 40 - Medications Medications: Current Medications Acetylcysteine (Acetylcysteine 20%) 2 ml INH RBID [facility] Last Admin: 08/06/17 08:18 Dose: 2 ml Albuterol/Ipratropium (Duoneb 3 Mg/0.5 Mg (3 Ml) Ud) 3 ml INH RQ6 [facility] Last Admin: 08/06/17 08:18 Dose: 3 ml Amlodipine Besylate (Norvasc) 5 mg PO Q12H [facility] Last Admin: 08/05/17 21:26 Dose: 5 mg Bacitracin (Bacitracin Oint) 1 applic TOP DAILY [facility] Last Admin: 08/05/17 09:19 Dose: 1 applic Bumetanide (Bumex) 2 mg PO DAILY [facility] Bumetanide (Bumex) 1 mg PO BID [facility] Calcium Acetate (Phoslo) 2,001 mg PO 0830,1200,1830 [facility] Last Admin: 07/14/17 12:26 Dose: 2,001 mg Dextrose (Dextrose 50% Inj) 0 ml IV STAT PRN; Protocol PRN Reason: Hypoglycemia Protocol Last Admin: 08/04/17 11:36 Dose: 50 ml Dextrose (Glutose 15) 0 gm PO ONCE PRN; Protocol PRN Reason: Hypoglycemia Protocol Dextrose (Dextrose 50% Inj) 50 ml IVP Q1H PRN PRN Reason: Hypoglycemia Dextrose (Dextrose 50% Inj) 0 ml IV STAT PRN; Protocol PRN Reason: Hypoglycemia Protocol Dextrose (Glutose 15) 0 gm PO ONCE PRN; Protocol PRN Reason: Hypoglycemia Protocol Diltiazem HCl (Cardizem Cd) 360 mg PO DAILY [facility] Last Admin: 08/05/17 09:18 Dose: 360 mg Fluconazole (Diflucan) 200 mg PO DAILY [facility] PRN Reason: Protocol Last Admin: 08/05/17 09:21 Dose: 200 mg Glucagon (Glucagen Diagnostic Kit) 0 mg IM STAT PRN; Protocol PRN Reason: Hypoglycemia Protocol Glucagon (Glucagen Diagnostic Kit) 0 mg IM STAT PRN; Protocol PRN Reason: Hypoglycemia Protocol Heparin Sodium (Porcine) (Heparin) 5,000 units SC Q12 [facility] PRN Reason: Protocol Last Admin: 08/05/17 21:26 Dose: 5,000 units Cefepime HCl 1 gm/ Sodium (Chloride) 100 mls @ 100 mls/hr IVPB DAILY [facility] PRN Reason: Protocol Last Admin: 08/05/17 09:12 Dose: 100 mls/hr Insulin Human Regular (Humulin R) 0 units SC ACHS [facility] PRN Reason: Protocol Last Admin: 08/05/17 21:27 Dose: Not Given Levetiracetam (Keppra) 500 mg PO Q12H [facility] Last Admin: 08/05/17 21:26 Dose: 500 mg Levothyroxine Sodium (Synthroid) 50 mcg PO DAILY@0630 [facility] Last Admin: 08/06/17 06:10 Dose: 50 mcg Lidocaine (Lidoderm) 2 ea TD DAILY [facility] Last Admin: 08/05/17 09:17 Dose: Not Given Lisinopril (Zestril) 40 mg PO DAILY [facility] Last Admin: 08/05/17 09:15 Dose: 40 mg Lorazepam (Ativan) 2 mg IVP Q6 PRN PRN Reason: Seizure activity Losartan Potassium (Cozaar) 25 mg PO DAILY [facility] Last Admin: 08/05/17 09:18 Dose: 25 mg Mirtazapine (Remeron) 30 mg PO HS [facility] Last Admin: 08/05/17 21:26 Dose: 30 mg Ondansetron HCl (Zofran Inj) 4 mg IVP Q6 PRN PRN Reason: Nausea/Vomiting Repaglinide (Prandin) 2 mg PO TIDAC [facility] Last Admin: 08/05/17 16:43 Dose: Not Given Sodium Bicarbonate (Sodium Bicarbonate Tab) 1,300 mg PO Q8 [facility] Last Admin: 07/02/17 16:23 Dose: 1,300 mg Spironolactone (Aldactone) 25 mg PO BID [facility] Last Admin: 08/04/17 11:40 Dose: 25 mg Thiamine HCl (Vitamin B1 Tab) 100 mg PO DAILY [facility] Last Admin: 08/05/17 09:16 Dose: 100 mg - Labs Labs: 08/06/17 05:30 08/06/17 05:30 PT 15.3 Seconds (9.8-13.1) H 07/18/17 05:30 INR 1.4 (0.9-1.2) H 07/18/17 05:30 APTT 34.2 Seconds (25.6-37.1) 07/18/17 05:30 - Constitutional Appears: No Acute Distress - Head Exam Head Exam: ATRAUMATIC, NORMAL INSPECTION, NORMOCEPHALIC - Eye Exam Eye Exam: Normal appearance - ENT Exam ENT Exam: Mucous Membranes Dry - Neck Exam Neck Exam: absent: Tenderness - Respiratory Exam Respiratory Exam: Wheezes. absent: Respiratory Distress Additional comments: mild crackles heard on lung bases, on high flow NC - Cardiovascular Exam Cardiovascular Exam: REGULAR RHYTHM, Murmur Additional comments: Systolic murmur - GI/Abdominal Exam GI & Abdominal Exam: Soft, Normal Bowel Sounds. absent: Distended, Tenderness - Extremities Exam Extremities Exam: absent: Calf Tenderness, Pedal Edema, Tenderness - Neurological Exam Neurological Exam: Alert, Awake - Skin Skin Exam: Dry Assessment and Plan - Assessment and Plan (Free Text) Assessment: 66 y/o man w/ pmh of HTN, DM, DM nephropathy, monoclonal gammopathy, recurrent L pleural effusion admitted for sepsis, Hypothermia, CHINTAN on CKD. Plan: 1) Acute respiratory failure secondary to recurrent pleural effusions. Most likely 2/2 nephrotic syndrome. 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, transferred to [facility] - on high flow NC, 30 L, 640% FiO2, 33 C, saturating 93% - bumetanide 1 mg PO daily - cefepime 1 gm IV daily restarted due to elevated WBC - s/p therapuetic thoracocentesis w/ IR 08/04; drained 1.2 L - c/w Chest PT Q4H via bed programming - Suctioning - Pulmonary recommendations for mucomyst, bronchodilator - ID Consult, Dr Dolan, recommendations appreciated: c/w Fluconazole PO for 3wks more from (07/25/17) 2) Hypoglycemia - resolved - patient blood glucose 119 - patient poor PO intake - patient taking PO again - DC'ed on IVF D5W @ 60 mL/hr - monitor for acute changes 3) HTN due to CKD - preCHF: Echo 05/31/17 normal EF 60-65% - Continuing to improve but renal function gradually worsening as is expected as per Nephrology - Nephrology Consult, Dr Luz, recommendations appreciated: c/w ACEI/Cardiazem /Spironolactone, ARB, Hydralazine, Lasix 4) Nephrotic Syndrome - biopsy 06/05/17- nodular glomerulosclerosis/ ~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 - Renal duplex: no renal vein thrombosis - CKD stage 4: f/u Nephrology recommendations - as per nephrology: Secondary to severe diabetic nephropathy with nephrotic sydrome; renal function stable lately after resolution of ATN; repeat 24 hr urine protein with patient on aggressive KEVIN blockade, BP control and other hemodynamicaly mediated anti-proteinuric measures; still with ~9g proteinuria; will continue same management for now; no role for immunosuppressive therapy 5) Anemia - remaining stable but no increase, EPO MWF 6) Hypothyroidism - TSH 2.93 - c/w Synthroid 50 mcg PO daily 7) Prolactinemia - Prolactin 27.1 - improving, monitor for now 8) DM type 2 - prandin 1 mg PO TIDAC - reduced levemir to 5 units SC HS - Lispro 8) Seizure - c/w Keppra 500mg, PO, Q12H - Neurology Consult, Dr Nicholas, recommendations appreciated: c/w Keppra, ASA held, signed off 9) Skin breakdown - Skin tear: healing site on LEFT dorsum of hand, healing on lower back x2, - Sacral-Stage I: healing - c/w heal boots - c/w pressure off-loading 10) Depression - history of depression - on remeron 30 mg PO HS - psych re-consulted for decision making capacity, recommendations appreciated: patient does not have capacity to make medical decisions at this time 11) Deconditioning - PT/OT consulted and following patient 12) Diet - Modified Dysphagia with thin liquids - Consult Dietary: Recommend 60g Protein and modified dysphagia 13) DVT prophylaxis - Heparin 5,000U, SC, Q12H 14) Disposition - contact child welfare social worker regarding initiation for possible guardianship - psych consult, Dr. Bird, recommendations appreciated: deemed to not have capacity to make medical decisions at this time line: triple lumen catheter, left subclavian
[2017-08-06] MEDS: Insulin Regular 100 units/ml SC SCH ×4 (09:45→22:50)
[2017-08-06] MEDS: Bacitracin OINT 15GM TOP SCH (09:48)
[2017-08-06] MEDS: Lidocaine 5% Patch TD SCH (09:50)
[2017-08-06] MEDS: Cefepime 1 GM in Sodium Chloride 0.9% 100 ML IVPB SCH (09:53)
[2017-08-06] MEDS: diltiaZEM 180 mg/24 Hours CD Cap PO SCH (09:58)
--- NOTE | 2017-08-06 18:55 | CP.PCM.PN ---
Subjective - Date & Time of Evaluation Date of Evaluation: 08/06/17 Time of Evaluation: 18:53 - Subjective Subjective: 66 yo M w/ pmh of htn, dm, CKD IIIB w/ nephrotic syndrome from DM nephropathy, recurrent pleural effusions; Patient tolerating diet well; incontinent at times; denies shortness of breath ( changed from high flow O2 to 4L via NC); Objective - Vital Signs/Intake and Output Vital Signs (last 24 hours): Temp Pulse Resp BP Pulse Ox 98.0 F 66 20 130/62 94 L 08/06/17 15:24 08/06/17 15:24 08/06/17 15:24 08/06/17 15:24 08/06/17 15:24 Intake and Output: 08/06/17 08/06/17 06:59 18:59 Intake Total 40 400 Output Total 100 Balance 40 300 - Medications Medications: Current Medications Acetylcysteine (Acetylcysteine 20%) 2 ml INH RBID [facility] Last Admin: 08/06/17 08:18 Dose: 2 ml Albuterol/Ipratropium (Duoneb 3 Mg/0.5 Mg (3 Ml) Ud) 3 ml INH RQ6 [facility] Last Admin: 08/06/17 13:28 Dose: 3 ml Amlodipine Besylate (Norvasc) 5 mg PO Q12H [facility] Last Admin: 08/06/17 09:49 Dose: 5 mg Bacitracin (Bacitracin Oint) 1 applic TOP DAILY [facility] Last Admin: 08/06/17 09:48 Dose: 1 applic Bumetanide (Bumex) 1 mg PO BID [facility] Last Admin: 08/06/17 17:13 Dose: 1 mg Calcium Acetate (Phoslo) 2,001 mg PO 0830,1200,1830 [facility] Last Admin: 07/14/17 12:26 Dose: 2,001 mg Dextrose (Dextrose 50% Inj) 0 ml IV STAT PRN; Protocol PRN Reason: Hypoglycemia Protocol Last Admin: 08/04/17 11:36 Dose: 50 ml Dextrose (Glutose 15) 0 gm PO ONCE PRN; Protocol PRN Reason: Hypoglycemia Protocol Dextrose (Dextrose 50% Inj) 50 ml IVP Q1H PRN PRN Reason: Hypoglycemia Dextrose (Dextrose 50% Inj) 0 ml IV STAT PRN; Protocol PRN Reason: Hypoglycemia Protocol Dextrose (Glutose 15) 0 gm PO ONCE PRN; Protocol PRN Reason: Hypoglycemia Protocol Diltiazem HCl (Cardizem Cd) 360 mg PO DAILY [facility] Last Admin: 08/06/17 09:58 Dose: 360 mg Epoetin Roel (Procrit) 10,000 unit SC MWF [facility] Fluconazole (Diflucan) 200 mg PO DAILY [facility] PRN Reason: Protocol Last Admin: 08/06/17 09:51 Dose: 200 mg Glucagon (Glucagen Diagnostic Kit) 0 mg IM STAT PRN; Protocol PRN Reason: Hypoglycemia Protocol Glucagon (Glucagen Diagnostic Kit) 0 mg IM STAT PRN; Protocol PRN Reason: Hypoglycemia Protocol Heparin Sodium (Porcine) (Heparin) 5,000 units SC Q12 [facility] PRN Reason: Protocol Last Admin: 08/06/17 09:50 Dose: 5,000 units Cefepime HCl 1 gm/ Sodium (Chloride) 100 mls @ 100 mls/hr IVPB DAILY [facility] PRN Reason: Protocol Last Admin: 08/06/17 09:53 Dose: 100 mls/hr Insulin Human Regular (Humulin R) 0 units SC ACHS [facility] PRN Reason: Protocol Last Admin: 08/06/17 17:12 Dose: Not Given Levetiracetam (Keppra) 500 mg PO Q12H [facility] Last Admin: 08/06/17 09:50 Dose: 500 mg Levothyroxine Sodium (Synthroid) 50 mcg PO DAILY@0630 [facility] Last Admin: 08/06/17 06:10 Dose: 50 mcg Lidocaine (Lidoderm) 2 ea TD DAILY [facility] Last Admin: 08/06/17 09:50 Dose: Not Given Lisinopril (Zestril) 40 mg PO DAILY [facility] Last Admin: 08/06/17 09:47 Dose: 40 mg Lorazepam (Ativan) 2 mg IVP Q6 PRN PRN Reason: Seizure activity Losartan Potassium (Cozaar) 25 mg PO DAILY [facility] Last Admin: 08/06/17 09:55 Dose: 25 mg Mirtazapine (Remeron) 30 mg PO HS [facility] Last Admin: 08/05/17 21:26 Dose: 30 mg Ondansetron HCl (Zofran Inj) 4 mg IVP Q6 PRN PRN Reason: Nausea/Vomiting Repaglinide (Prandin) 2 mg PO TIDAC [facility] Last Admin: 02/07/18 17:12 Dose: Not Given Spironolactone (Aldactone) 25 mg PO BID [facility] Last Admin: 08/06/17 17:14 Dose: 25 mg Thiamine HCl (Vitamin B1 Tab) 100 mg PO DAILY [facility] Last Admin: 08/06/17 09:47 Dose: 100 mg - Labs Labs: 08/06/17 05:30 08/06/17 05:30 PT 15.3 Seconds (9.8-13.1) H 07/18/17 05:30 INR 1.4 (0.9-1.2) H 07/18/17 05:30 APTT 34.2 Seconds (25.6-37.1) 07/18/17 05:30 - Constitutional Appears: Non-toxic, No Acute Distress - Eye Exam Eye Exam: absent: Scleral icterus - ENT Exam ENT Exam: Mucous Membranes Moist - Respiratory Exam Respiratory Exam: Clear to Ausculation Bilateral. absent: Respiratory Distress Additional comments: decreased sounds at L base; - Cardiovascular Exam Cardiovascular Exam: RRR, +S1, +S2. absent: Gallop - GI/Abdominal Exam GI & Abdominal Exam: Soft. absent: Distended, Tenderness - Exam Exam: absent: Bladder Distension - Extremities Exam Additional comments: moderate edema of dependent areas, has some ankle edema; - Neurological Exam Neurological Exam: Alert, Awake - Psychiatric Exam Psychiatric exam: absent: Agitated - Skin Skin Exam: Warm. absent: Cyanosis Assessment and Plan (1) Chronic kidney disease, stage 3 (moderate) Assessment & Plan: CKD IIIB w/ nephrotic syndrome; stable renal function; continue anti- proteinuric measures; Status: Chronic (2) Acute renal failure Status: Resolved (3) Nephrotic syndrome Assessment & Plan: Lower ext edema may be increasing again; restarted on diuretics with bumex 1 mg PO bid, will monitor; Status: Chronic (4) Pleural effusion Status: Chronic (5) Hypertensive CKD (chronic kidney disease) Assessment & Plan: BP well controlled for now, continue current meds; Status: Acute (6) Hypothermia Status: Acute (7) Altered mental status Status: Acute (8) SIRS (systemic inflammatory response syndrome) Status: Acute (9) Anemia Assessment & Plan: EPO restarted at 10,000 u qMWF (first dose tomorrow), monitor hgb periodically; Status: Chronic (10) Monoclonal gammopathy Status: Chronic (11) Hypernatremia Status: Acute
--- NOTE | 2017-08-06 23:11 | PN ---
ENDOCRINOLOGY FOLLOWUP NOTE DATE: LOCATION: Room 414. SUBJECTIVE: This is a 66-year-old male with recent uncontrolled type 2 insulin-requiring diabetes now being followed closely for metabolic management. He has been taken off basal insulin therapy because of very nil and suboptimal portions as noted. His glycemic levels are fluctuating but improved and the latest glucose levels have ranged from 119 to 250 mg/dL. It was 134 at bedtime last night. The latest chemistry showed a BUN of 58, sodium 143, potassium 4.2, chloride 107, CO2 of 26, glucose 81 and creatinine 2.2. So at this time, we will continue only the oral hypoglycemic therapy given as Prandin at 2 mg p.o. t.i.d. before meals as ordered. We will continue also the low-dose correction scale using Humalog insulin as given. We will also continue his low-dose liver thyroxine given as 50 mcg daily as ordered. We will titrate incrementally as indicated to optimize metabolic control. We will follow. Bettina Mann MD
[2017-08-07] MEDS: Albuterol-Ipratrop 3 mg / 0.5 (3 ml) UD INH SCH ×4 (01:02→19:38)
[2017-08-07 06:05] LABS: HEMOGLOBIN 11.2 g/dL (12.0-18.0); MEAN CELL VOLUME 89.7 fl (80.0-94.0); MEAN CORPUSCULAR HEMOGLOBIN 28.5 pg (27.0-31.0); MEAN CORPUSCULAR HGB CONC 31.8 g/dL (33.0-37.0); RBC 3.93 Mil/uL (4.40-5.90); WHITE BLOOD COUNT 7.5 K/uL (4.8-10.8)
[2017-08-07] MEDS: Levothyroxine 50 MCG TAB PO SCH (06:40)
--- NOTE | 2017-08-07 07:16 | CP.PCM.PN ---
Subjective - Date & Time of Evaluation Date of Evaluation: 08/07/17 Time of Evaluation: 07:15 - Subjective Subjective: Patient seen and examined bedside. The patient's blood sugars stable, last glucose was 151. The patient is laying in bed on room air, NAD. Patient on NC 4 L. The patient is awake and verbal this morning. Patient has pulmonary bed in use and sites of chest tubes healing appropriately. Objective - Vital Signs/Intake and Output Vital Signs (last 24 hours): Temp Pulse Resp BP Pulse Ox 98.6 F 77 18 143/63 94 L 08/07/17 05:00 08/07/17 05:00 08/07/17 05:00 08/07/17 05:00 08/07/17 05:00 Intake and Output: 08/07/17 08/07/17 06:59 18:59 Intake Total 0 Balance 0 - Medications Medications: Current Medications Acetylcysteine (Acetylcysteine 20%) 2 ml INH RBID [facility] Last Admin: 08/06/17 19:26 Dose: 2 ml Albuterol/Ipratropium (Duoneb 3 Mg/0.5 Mg (3 Ml) Ud) 3 ml INH RQ6 [facility] Last Admin: 08/07/17 01:02 Dose: 3 ml Amlodipine Besylate (Norvasc) 5 mg PO Q12H [facility] Last Admin: 08/06/17 22:48 Dose: 5 mg Bacitracin (Bacitracin Oint) 1 applic TOP DAILY [facility] Last Admin: 08/06/17 09:48 Dose: 1 applic Bumetanide (Bumex) 1 mg PO BID [facility] Last Admin: 08/06/17 17:13 Dose: 1 mg Calcium Acetate (Phoslo) 2,001 mg PO 0830,1200,1830 [facility] Last Admin: 07/14/17 12:26 Dose: 2,001 mg Dextrose (Dextrose 50% Inj) 0 ml IV STAT PRN; Protocol PRN Reason: Hypoglycemia Protocol Last Admin: 08/04/17 11:36 Dose: 50 ml Dextrose (Glutose 15) 0 gm PO ONCE PRN; Protocol PRN Reason: Hypoglycemia Protocol Dextrose (Dextrose 50% Inj) 50 ml IVP Q1H PRN PRN Reason: Hypoglycemia Dextrose (Dextrose 50% Inj) 0 ml IV STAT PRN; Protocol PRN Reason: Hypoglycemia Protocol Dextrose (Glutose 15) 0 gm PO ONCE PRN; Protocol PRN Reason: Hypoglycemia Protocol Diltiazem HCl (Cardizem Cd) 360 mg PO DAILY [facility] Last Admin: 08/06/17 09:58 Dose: 360 mg Epoetin Roel (Procrit) 10,000 unit SC MWF [facility] Fluconazole (Diflucan) 200 mg PO DAILY [facility] PRN Reason: Protocol Last Admin: 08/06/17 09:51 Dose: 200 mg Glucagon (Glucagen Diagnostic Kit) 0 mg IM STAT PRN; Protocol PRN Reason: Hypoglycemia Protocol Glucagon (Glucagen Diagnostic Kit) 0 mg IM STAT PRN; Protocol PRN Reason: Hypoglycemia Protocol Heparin Sodium (Porcine) (Heparin) 5,000 units SC Q12 [facility] PRN Reason: Protocol Last Admin: 08/06/17 23:00 Dose: Not Given Cefepime HCl 1 gm/ Sodium (Chloride) 100 mls @ 100 mls/hr IVPB DAILY [facility] PRN Reason: Protocol Last Admin: 08/06/17 09:53 Dose: 100 mls/hr Insulin Human Regular (Humulin R) 0 units SC ACHS [facility] PRN Reason: Protocol Last Admin: 08/06/17 22:50 Dose: Not Given Levetiracetam (Keppra) 500 mg PO Q12H [facility] Last Admin: 08/06/17 22:48 Dose: 500 mg Levothyroxine Sodium (Synthroid) 50 mcg PO DAILY@0630 [facility] Last Admin: 08/07/17 06:40 Dose: 50 mcg Lidocaine (Lidoderm) 2 ea TD DAILY [facility] Last Admin: 08/06/17 09:50 Dose: Not Given Lisinopril (Zestril) 40 mg PO DAILY [facility] Last Admin: 08/06/17 09:47 Dose: 40 mg Lorazepam (Ativan) 2 mg IVP Q6 PRN PRN Reason: Seizure activity Losartan Potassium (Cozaar) 25 mg PO DAILY [facility] Last Admin: 08/06/17 09:55 Dose: 25 mg Mirtazapine (Remeron) 30 mg PO HS [facility] Last Admin: 08/06/17 22:49 Dose: 30 mg Ondansetron HCl (Zofran Inj) 4 mg IVP Q6 PRN PRN Reason: Nausea/Vomiting Repaglinide (Prandin) 2 mg PO TIDAC [facility] Last Admin: 08/06/17 17:12 Dose: Not Given Spironolactone (Aldactone) 25 mg PO BID [facility] Last Admin: 08/06/17 17:14 Dose: 25 mg Thiamine HCl (Vitamin B1 Tab) 100 mg PO DAILY [facility] Last Admin: 08/06/17 09:47 Dose: 100 mg - Labs Labs: 08/07/17 05:00 08/06/17 05:30 PT 15.3 Seconds (9.8-13.1) H 07/18/17 05:30 INR 1.4 (0.9-1.2) H 07/18/17 05:30 APTT 34.2 Seconds (25.6-37.1) 07/18/17 05:30 - Constitutional Appears: No Acute Distress - Head Exam Head Exam: ATRAUMATIC, NORMAL INSPECTION, NORMOCEPHALIC - Eye Exam Eye Exam: Normal appearance - ENT Exam ENT Exam: Mucous Membranes Dry - Respiratory Exam Respiratory Exam: absent: Rhonchi, Wheezes, Respiratory Distress Additional comments: mild crackles heard on lung bases, on NC 4L - Cardiovascular Exam Cardiovascular Exam: REGULAR RHYTHM, Murmur Additional comments: Systolic murmur at left mid-sternum - GI/Abdominal Exam GI & Abdominal Exam: Soft, Normal Bowel Sounds. absent: Distended, Tenderness - Extremities Exam Extremities Exam: absent: Calf Tenderness, Pedal Edema, Tenderness - Neurological Exam Neurological Exam: Alert, Awake - Skin Skin Exam: Dry Assessment and Plan - Assessment and Plan (Free Text) Assessment: 66 y/o man w/ pmh of HTN, DM, DM nephropathy, monoclonal gammopathy, recurrent L pleural effusion admitted for sepsis, Hypothermia, CHINTAN on CKD. Plan: 1) Acute respiratory failure secondary to recurrent pleural effusions. Most likely 2/2 nephrotic syndrome. 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, transferred to [facility] - on NC, 4 L, saturating 94% - bumetanide 1 mg PO daily - cefepime 1 gm IV daily restarted due to elevated WBC - s/p therapuetic thoracocentesis w/ IR 08/04; drained 1.2 L - c/w Chest PT Q4H via bed programming - Suctioning - Pulmonary recommendations for mucomyst, bronchodilator - ID Consult, Dr Dolan, recommendations appreciated: c/w Fluconazole PO for 3wks more from (07/25/17) 2) Hypoglycemia - resolved - patient blood glucose 151 - patient poor PO intake - patient taking PO again - monitor for acute changes 3) HTN due to CKD - preCHF: Echo 05/31/17 normal EF 60-65% - Continuing to improve but renal function gradually worsening as is expected as per Nephrology - Nephrology Consult, Dr Luz, recommendations appreciated: c/w ACEI/Cardiazem /Spironolactone, ARB, Hydralazine, Lasix 4) Nephrotic Syndrome - biopsy 06/05/17- nodular glomerulosclerosis/ ~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 - Renal duplex: no renal vein thrombosis - CKD stage 4: f/u Nephrology recommendations - as per nephrology: Secondary to severe diabetic nephropathy with nephrotic sydrome; renal function stable lately after resolution of ATN; repeat 24 hr urine protein with patient on aggressive KEVIN blockade, BP control and other hemodynamicaly mediated anti-proteinuric measures; still with ~9g proteinuria; will continue same management for now; no role for immunosuppressive therapy 5) Anemia - remaining stable but no increase, EPO MWF 6) Hypothyroidism - TSH 2.93 - c/w Synthroid 50 mcg PO daily 7) Prolactinemia - Prolactin 27.1 - improving, monitor for now 8) DM type 2 - prandin 2 mg PO TIDAC - DC'ed levemir to 5 units SC HS - Lispro 8) Seizure - c/w Keppra 500mg, PO, Q12H - Neurology Consult, Dr Nicholas, recommendations appreciated: c/w Keppra, ASA held, signed off 9) Skin breakdown - Skin tear: healing site on LEFT dorsum of hand, healing on lower back x2, - Sacral-Stage I: healing - c/w heal boots - c/w pressure off-loading 10) Depression - history of depression - on remeron 30 mg PO HS - psych re-consulted for decision making capacity, recommendations appreciated: patient does not have capacity to make medical decisions at this time 11) Deconditioning - PT/OT consulted and following patient 12) Diet - Modified Dysphagia with thin liquids - Consult Dietary: Recommend 60g Protein and modified dysphagia 13) DVT prophylaxis - Heparin 5,000U, SC, Q12H 14) Disposition - transfer patient to Med[facility]urg - contact social worker school regarding initiation for possible guardianship - psych consult, Dr. Bird, recommendations appreciated: deemed to not have capacity to make medical decisions at this time line: triple lumen catheter, left subclavian
[2017-08-07] MEDS: Insulin Regular 100 units/ml SC SCH ×4 (07:30→22:41)
[2017-08-07 07:42] LABS: CALCIUM 8.1 mg/dL (8.4-10.2)
[2017-08-07] MEDS: Acetylcysteine 20% Inhal Soln (4ml) INH SCH ×2 (08:04→19:38)
[2017-08-07] MEDS: Cefepime 1 GM in Sodium Chloride 0.9% 100 ML IVPB SCH (10:00)
[2017-08-07] MEDS: Bacitracin OINT 15GM TOP SCH (10:02)
[2017-08-07] MEDS: diltiaZEM 180 mg/24 Hours CD Cap PO SCH (10:03)
[2017-08-07] MEDS: Lidocaine 5% Patch TD SCH (10:09)
--- NOTE | 2017-08-07 21:52 | PN ---
ENDOCRINOLOGY FOLLOWUP NOTE DATE: LOCATION: In room 414. SUBJECTIVE: This is a 66-year-old male with recent uncontrolled type 2 diabetes and hypothyroidism, now being followed closely for metabolic management. His glycemic levels are fluctuating, but much improved at this time, and the latest glucose levels have ranged from 151 to 182 mg/dL. His latest chemistry showed a BUN of 57, sodium 141, potassium 4.4, chloride 107, CO2 27, glucose 152, and creatinine 2.3. So, at this time, we will continue the same Prandin given as 2 mg p.o. t.i.d. before meals as ordered. He is currently only on the low-dose correction scale using Humalog insulin as given. He has been taken off all Levemir or basal insulin as ordered. We will continue also the levothyroxine given as 50 mcg daily as ordered. We will titrate incremental as indicated to optimize metabolic control. We will follow the patient. Bettina Mann MD
--- NOTE | 2017-08-07 22:01 | CP.PCM.PN ---
Subjective - Date & Time of Evaluation Date of Evaluation: 08/07/17 Time of Evaluation: 19:00 - Subjective Subjective: Patient reports eating well; no shortness of breath; no nausea/vomiting; Objective - Vital Signs/Intake and Output Vital Signs (last 24 hours): Temp Pulse Resp BP Pulse Ox 97.5 F L 75 16 145/64 98 08/07/17 20:05 08/07/17 20:05 08/07/17 20:05 08/07/17 20:05 08/07/17 20:05 - Medications Medications: Current Medications Acetylcysteine (Acetylcysteine 20%) 2 ml INH RBID [facility] Last Admin: 08/07/17 19:38 Dose: 2 ml Albuterol/Ipratropium (Duoneb 3 Mg/0.5 Mg (3 Ml) Ud) 3 ml INH RQ6 [facility] Last Admin: 08/07/17 19:38 Dose: 3 ml Amlodipine Besylate (Norvasc) 5 mg PO Q12H [facility] Last Admin: 08/07/17 10:00 Dose: 5 mg Bacitracin (Bacitracin Oint) 1 applic TOP DAILY [facility] Last Admin: 08/07/17 10:02 Dose: 1 applic Bumetanide (Bumex) 1 mg PO BID [facility] Last Admin: 08/07/17 18:07 Dose: 1 mg Calcium Acetate (Phoslo) 2,001 mg PO 0830,1200,1830 [facility] Last Admin: 07/14/17 12:26 Dose: 2,001 mg Dextrose (Dextrose 50% Inj) 0 ml IV STAT PRN; Protocol PRN Reason: Hypoglycemia Protocol Last Admin: 08/04/17 11:36 Dose: 50 ml Dextrose (Glutose 15) 0 gm PO ONCE PRN; Protocol PRN Reason: Hypoglycemia Protocol Dextrose (Dextrose 50% Inj) 50 ml IVP Q1H PRN PRN Reason: Hypoglycemia Dextrose (Dextrose 50% Inj) 0 ml IV STAT PRN; Protocol PRN Reason: Hypoglycemia Protocol Dextrose (Glutose 15) 0 gm PO ONCE PRN; Protocol PRN Reason: Hypoglycemia Protocol Diltiazem HCl (Cardizem Cd) 360 mg PO DAILY [facility] Last Admin: 08/07/17 10:03 Dose: 360 mg Epoetin Roel (Procrit) 10,000 unit SC F [facility] Fluconazole (Diflucan) 200 mg PO DAILY [facility] PRN Reason: Protocol Last Admin: 08/07/17 10:05 Dose: 200 mg Glucagon (Glucagen Diagnostic Kit) 0 mg IM STAT PRN; Protocol PRN Reason: Hypoglycemia Protocol Glucagon (Glucagen Diagnostic Kit) 0 mg IM STAT PRN; Protocol PRN Reason: Hypoglycemia Protocol Heparin Sodium (Porcine) (Heparin) 5,000 units SC Q12 [facility] PRN Reason: Protocol Last Admin: 08/07/17 10:28 Dose: Not Given Cefepime HCl 1 gm/ Sodium (Chloride) 100 mls @ 100 mls/hr IVPB DAILY [facility] PRN Reason: Protocol Last Admin: 08/07/17 10:00 Dose: 100 mls/hr Insulin Human Regular (Humulin R) 0 units SC ACHS [facility] PRN Reason: Protocol Last Admin: 08/07/17 18:08 Dose: Not Given Levetiracetam (Keppra) 500 mg PO Q12H [facility] Last Admin: 08/07/17 10:04 Dose: 500 mg Levothyroxine Sodium (Synthroid) 50 mcg PO DAILY@0630 [facility] Last Admin: 08/07/17 06:40 Dose: 50 mcg Lidocaine (Lidoderm) 2 ea TD DAILY [facility] Last Admin: 08/07/17 10:09 Dose: Not Given Lisinopril (Zestril) 40 mg PO DAILY [facility] Last Admin: 08/07/17 10:00 Dose: 40 mg Lorazepam (Ativan) 2 mg IVP Q6 PRN PRN Reason: Seizure activity Losartan Potassium (Cozaar) 25 mg PO DAILY [facility] Last Admin: 08/07/17 10:05 Dose: 25 mg Mirtazapine (Remeron) 30 mg PO HS [facility] Last Admin: 08/06/17 22:49 Dose: 30 mg Ondansetron HCl (Zofran Inj) 4 mg IVP Q6 PRN PRN Reason: Nausea/Vomiting Repaglinide (Prandin) 2 mg PO TIDAC [facility] Last Admin: 08/07/17 18:08 Dose: Not Given Spironolactone (Aldactone) 25 mg PO BID [facility] Last Admin: 08/07/17 18:07 Dose: 25 mg Thiamine HCl (Vitamin B1 Tab) 100 mg PO DAILY [facility] Last Admin: 08/07/17 10:03 Dose: 100 mg - Labs Labs: 08/07/17 05:00 08/07/17 05:53 PT 15.3 Seconds (9.8-13.1) H 07/18/17 05:30 INR 1.4 (0.9-1.2) H 07/18/17 05:30 APTT 34.2 Seconds (25.6-37.1) 07/18/17 05:30 - Constitutional Appears: Non-toxic, No Acute Distress - Eye Exam Eye Exam: absent: Scleral icterus - ENT Exam ENT Exam: Mucous Membranes Moist - Respiratory Exam Respiratory Exam: Clear to Ausculation Bilateral. absent: Respiratory Distress - Cardiovascular Exam Cardiovascular Exam: RRR, +S1, +S2 - GI/Abdominal Exam GI & Abdominal Exam: Soft. absent: Distended, Tenderness - Exam Additional comments: no bladder distention; - Neurological Exam Neurological Exam: Alert, Awake - Psychiatric Exam Psychiatric exam: Normal Mood. absent: Agitated - Skin Skin Exam: Warm. absent: Cyanosis Assessment and Plan (1) Chronic kidney disease, stage 3 (moderate) Assessment & Plan: CKD IIIB, stable renal function lately; continue current anti-proteinuric measures; Status: Chronic (2) Acute renal failure Status: Resolved (3) Nephrotic syndrome Status: Chronic (4) Pleural effusion Status: Chronic (5) Hypertensive CKD (chronic kidney disease) Assessment & Plan: BP relatively well controlled, continue current meds; may need to increase bumex dose if edema increases (2mg in am, 1 mg in pm); Status: Acute (6) Hypothermia Status: Acute (7) Altered mental status Status: Acute (8) SIRS (systemic inflammatory response syndrome) Status: Acute (9) Anemia Assessment & Plan: Hgb just above goal, will change EPO to be dosed just once a week; Status: Chronic (10) Monoclonal gammopathy Status: Chronic (11) Hypernatremia Assessment & Plan: Resolved; encourage adequate PO fluid intake; Status: Acute
[2017-08-08] MEDS: Albuterol-Ipratrop 3 mg / 0.5 (3 ml) UD INH SCH ×4 (01:02→20:03)
[2017-08-08] MEDS: Levothyroxine 50 MCG TAB PO SCH (06:53)
--- NOTE | 2017-08-08 07:37 | CP.PCM.PN ---
<Mohit Rod - Last Filed: 08/08/17 13:47> Subjective - Date & Time of Evaluation Date of Evaluation: 08/08/17 Time of Evaluation: 07:15 - Subjective Subjective: Patient seen and examined bedside. The patient's blood sugars stable, last glucose was 252. The patient is laying in bed on room air, NAD. Patient on NC 4 L. The patient is awake and verbal this morning. Patient has pulmonary bed in use and sites of chest tubes healing appropriately. Objective - Vital Signs/Intake and Output Vital Signs (last 24 hours): Temp Pulse Resp BP Pulse Ox 97.9 F 77 18 144/65 94 L 08/08/17 05:35 08/08/17 05:35 08/08/17 05:35 08/08/17 05:35 08/08/17 05:35 Intake and Output: 08/08/17 08/08/17 06:59 18:59 Intake Total 100 Balance 100 - Medications Medications: Current Medications Acetylcysteine (Acetylcysteine 20%) 2 ml INH RBID [facility] Last Admin: 08/07/17 19:38 Dose: 2 ml Albuterol/Ipratropium (Duoneb 3 Mg/0.5 Mg (3 Ml) Ud) 3 ml INH RQ6 [facility] Last Admin: 08/08/17 01:02 Dose: Not Given Amlodipine Besylate (Norvasc) 5 mg PO Q12H [facility] Last Admin: 08/07/17 22:42 Dose: 5 mg Bacitracin (Bacitracin Oint) 1 applic TOP DAILY [facility] Last Admin: 08/07/17 10:02 Dose: 1 applic Bumetanide (Bumex) 1 mg PO BID [facility] Last Admin: 08/07/17 18:07 Dose: 1 mg Calcium Acetate (Phoslo) 2,001 mg PO 0830,1200,1830 [facility] Last Admin: 07/14/17 12:26 Dose: 2,001 mg Dextrose (Dextrose 50% Inj) 0 ml IV STAT PRN; Protocol PRN Reason: Hypoglycemia Protocol Last Admin: 08/04/17 11:36 Dose: 50 ml Dextrose (Glutose 15) 0 gm PO ONCE PRN; Protocol PRN Reason: Hypoglycemia Protocol Dextrose (Dextrose 50% Inj) 50 ml IVP Q1H PRN PRN Reason: Hypoglycemia Dextrose (Dextrose 50% Inj) 0 ml IV STAT PRN; Protocol PRN Reason: Hypoglycemia Protocol Dextrose (Glutose 15) 0 gm PO ONCE PRN; Protocol PRN Reason: Hypoglycemia Protocol Diltiazem HCl (Cardizem Cd) 360 mg PO DAILY [facility] Last Admin: 08/07/17 10:03 Dose: 360 mg Epoetin Roel (Procrit) 10,000 unit SC MWF [facility] Fluconazole (Diflucan) 200 mg PO DAILY [facility] PRN Reason: Protocol Last Admin: 08/07/17 10:05 Dose: 200 mg Glucagon (Glucagen Diagnostic Kit) 0 mg IM STAT PRN; Protocol PRN Reason: Hypoglycemia Protocol Glucagon (Glucagen Diagnostic Kit) 0 mg IM STAT PRN; Protocol PRN Reason: Hypoglycemia Protocol Heparin Sodium (Porcine) (Heparin) 5,000 units SC Q12 [facility] PRN Reason: Protocol Last Admin: 08/07/17 22:40 Dose: Not Given Cefepime HCl 1 gm/ Sodium (Chloride) 100 mls @ 100 mls/hr IVPB DAILY [facility] PRN Reason: Protocol Last Admin: 08/07/17 10:00 Dose: 100 mls/hr Insulin Human Regular (Humulin R) 0 units SC ACHS [facility] PRN Reason: Protocol Last Admin: 08/07/17 22:41 Dose: Not Given Levetiracetam (Keppra) 500 mg PO Q12H [facility] Last Admin: 08/07/17 22:41 Dose: 500 mg Levothyroxine Sodium (Synthroid) 50 mcg PO DAILY@0630 [facility] Last Admin: 08/08/17 06:53 Dose: 50 mcg Lidocaine (Lidoderm) 2 ea TD DAILY [facility] Last Admin: 08/07/17 10:09 Dose: Not Given Lisinopril (Zestril) 40 mg PO DAILY [facility] Last Admin: 08/07/17 10:00 Dose: 40 mg Lorazepam (Ativan) 2 mg IVP Q6 PRN PRN Reason: Seizure activity Losartan Potassium (Cozaar) 25 mg PO DAILY [facility] Last Admin: 08/07/17 10:05 Dose: 25 mg Mirtazapine (Remeron) 30 mg PO HS [facility] Last Admin: 08/07/17 22:42 Dose: 30 mg Ondansetron HCl (Zofran Inj) 4 mg IVP Q6 PRN PRN Reason: Nausea/Vomiting Repaglinide (Prandin) 2 mg PO TIDAC [facility] Last Admin: 08/07/17 18:08 Dose: Not Given Spironolactone (Aldactone) 25 mg PO BID [facility] Last Admin: 08/07/17 18:07 Dose: 25 mg Thiamine HCl (Vitamin B1 Tab) 100 mg PO DAILY [facility] Last Admin: 08/07/17 10:03 Dose: 100 mg - Labs Labs: 08/07/17 05:00 08/07/17 05:53 PT 15.3 Seconds (9.8-13.1) H 07/18/17 05:30 INR 1.4 (0.9-1.2) H 07/18/17 05:30 APTT 34.2 Seconds (25.6-37.1) 07/18/17 05:30 - Constitutional Appears: No Acute Distress - Head Exam Head Exam: ATRAUMATIC, NORMAL INSPECTION, NORMOCEPHALIC - Eye Exam Eye Exam: Normal appearance - ENT Exam ENT Exam: Mucous Membranes Dry - Neck Exam Neck Exam: absent: Tenderness - Respiratory Exam Respiratory Exam: absent: Rales, Rhonchi, Wheezes, Respiratory Distress Additional comments: mild crackles heard on lung bases, on NC 4L - Cardiovascular Exam Cardiovascular Exam: REGULAR RHYTHM Additional comments: Systolic murmur at left mid-sternum - GI/Abdominal Exam GI & Abdominal Exam: Soft, Normal Bowel Sounds. absent: Distended, Tenderness - Extremities Exam Extremities Exam: absent: Calf Tenderness, Pedal Edema, Tenderness - Neurological Exam Neurological Exam: Alert, Awake, Oriented x3 - Skin Skin Exam: Dry Assessment and Plan - Assessment and Plan (Free Text) Assessment: 66 y/o man w/ pmh of HTN, DM, DM nephropathy, monoclonal gammopathy, recurrent L pleural effusion admitted for sepsis, Hypothermia, CHINTAN on CKD. Plan: 1) Acute respiratory failure secondary to recurrent pleural effusions. Most likely 2/2 nephrotic syndrome. 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, transferred to [facility] on NC, 4 L, saturating 94% - bumetanide 1 mg PO daily - cefepime 1 gm IV daily restarted due to elevated WBC - s/p therapuetic thoracocentesis w/ IR 08/04; drained 1.2 L - c/w Chest PT Q4H via bed programming - Suctioning - Pulmonary recommendations for mucomyst, bronchodilator - ID Consult, Dr Dolan, recommendations appreciated: c/w Fluconazole PO for 3wks more from (07/25/17) - f/u CXR 2) Hypoglycemia - resolved - patient blood glucose 252 - patient poor PO intake - patient taking PO again - monitor for acute changes 3) HTN due to CKD - preCHF: Echo 05/31/17 normal EF 60-65% - Continuing to improve but renal function gradually worsening as is expected as per Nephrology - Nephrology Consult, Dr Luz, recommendations appreciated: c/w ACEI/Cardiazem /Spironolactone, ARB, Hydralazine, Lasix 4) Nephrotic Syndrome - biopsy 06/05/17- nodular glomerulosclerosis/ ~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 - Renal duplex: no renal vein thrombosis - CKD stage 4: f/u Nephrology recommendations - as per nephrology: Secondary to severe diabetic nephropathy with nephrotic sydrome; renal function stable lately after resolution of ATN; repeat 24 hr urine protein with patient on aggressive KEVIN blockade, BP control and other hemodynamicaly mediated anti-proteinuric measures; still with ~9g proteinuria; will continue same management for now; no role for immunosuppressive therapy 5) Anemia - remaining stable but no increase, EPO MWF 6) Hypothyroidism - TSH 2.93 - c/w Synthroid 50 mcg PO daily 7) Prolactinemia - Prolactin 27.1 - improving, monitor for now 8) DM type 2 - prandin 2 mg PO TIDAC - DC'ed levemir to 5 units SC HS - Lispro - consider restarting levemir again 8) Seizure - c/w Keppra 500mg, PO, Q12H - Neurology Consult, Dr Nicholas, recommendations appreciated: c/w Keppra, ASA held, signed off - re-consulting neurology for seizure history and AMS 9) Skin breakdown - Skin tear: healing site on LEFT dorsum of hand, healing on lower back x2, - Sacral-Stage I: healing - c/w heal boots - c/w pressure off-loading 10) Depression - history of depression - on remeron 30 mg PO HS - psych re-consulted for decision making capacity, recommendations appreciated: patient does not have capacity to make medical decisions at this time - f/u EEG and head CT w/o contrast 11) Deconditioning - PT/OT consulted and following patient 12) Diet - Modified Dysphagia with thin liquids - Consult Dietary: Recommend 60g Protein and modified dysphagia 13) DVT prophylaxis - Heparin 5,000U, SC, Q12H 14) Disposition - transfer patient to [facility] - contact high school social studies teacher regarding initiation for possible guardianship - psych consult, Dr. Bird, recommendations appreciated: deemed to not have capacity to make medical decisions at this time line: triple lumen catheter, left subclavian <Rocio Whitt - Last Filed: 08/09/17 09:35> Objective - Vital Signs/Intake and Output Vital Signs (last 24 hours): Temp Pulse Resp BP Pulse Ox 98.1 F 62 20 152/72 H 97 08/09/17 08:50 08/09/17 09:19 08/09/17 08:50 08/09/17 09:19 08/09/17 08:50 Intake and Output: 08/09/17 08/09/17 06:59 18:59 Intake Total 50 Output Total 1 Balance 49 - Medications Medications: Current Medications Acetylcysteine (Acetylcysteine 20%) 2 ml INH RBID [facility] Last Admin: 08/09/17 08:19 Dose: 2 ml Albuterol/Ipratropium (Duoneb 3 Mg/0.5 Mg (3 Ml) Ud) 3 ml INH RQ6 [facility] Last Admin: 08/09/17 08:20 Dose: 3 ml Amlodipine Besylate (Norvasc) 5 mg PO Q12H [facility] Last Admin: 08/09/17 09:18 Dose: 5 mg Bacitracin (Bacitracin Oint) 1 applic TOP DAILY [facility] Last Admin: 08/08/17 16:40 Dose: Not Given Bumetanide (Bumex) 1 mg PO BID [facility] Last Admin: 08/09/17 09:12 Dose: 1 mg Calcium Acetate (Phoslo) 2,001 mg PO 0830,1200,1830 [facility] Last Admin: 07/14/17 12:26 Dose: 2,001 mg Dextrose (Dextrose 50% Inj) 0 ml IV STAT PRN; Protocol PRN Reason: Hypoglycemia Protocol Last Admin: 08/04/17 11:36 Dose: 50 ml Dextrose (Glutose 15) 0 gm PO ONCE PRN; Protocol PRN Reason: Hypoglycemia Protocol Dextrose (Dextrose 50% Inj) 50 ml IVP Q1H PRN PRN Reason: Hypoglycemia Dextrose (Dextrose 50% Inj) 0 ml IV STAT PRN; Protocol PRN Reason: Hypoglycemia Protocol Dextrose (Glutose 15) 0 gm PO ONCE PRN; Protocol PRN Reason: Hypoglycemia Protocol Diltiazem HCl (Cardizem Cd) 360 mg PO DAILY [facility] Last Admin: 08/09/17 09:16 Dose: 360 mg Epoetin Roel (Procrit) 10,000 unit SC FRI [facility] Fluconazole (Diflucan) 200 mg PO DAILY [facility] PRN Reason: Protocol Last Admin: 08/09/17 09:17 Dose: 200 mg Glucagon (Glucagen Diagnostic Kit) 0 mg IM STAT PRN; Protocol PRN Reason: Hypoglycemia Protocol Glucagon (Glucagen Diagnostic Kit) 0 mg IM STAT PRN; Protocol PRN Reason: Hypoglycemia Protocol Heparin Sodium (Porcine) (Heparin) 5,000 units SC Q12 [facility] PRN Reason: Protocol Last Admin: 08/09/17 09:17 Dose: 5,000 units Cefepime HCl 1 gm/ Sodium (Chloride) 100 mls @ 100 mls/hr IVPB DAILY [facility] PRN Reason: Protocol Last Admin: 08/09/17 09:17 Dose: 100 mls/hr Insulin Human Regular (Humulin R) 0 units SC ACHS [facility] PRN Reason: Protocol Last Admin: 08/09/17 07:30 Dose: Not Given Lactic Acid (Lac-Hydrin 12% Lotion (225 G)) 1 applic TOP TID [facility] Last Admin: 08/09/17 09:17 Dose: 1 applic Levetiracetam (Keppra) 500 mg PO Q12H [facility] Last Admin: 08/09/17 09:17 Dose: 500 mg Levothyroxine Sodium (Synthroid) 50 mcg PO DAILY@0630 [facility] Last Admin: 08/09/17 06:56 Dose: 50 mcg Lidocaine (Lidoderm) 2 ea TD DAILY [facility] Last Admin: 08/09/17 09:18 Dose: 2 ea Lisinopril (Zestril) 40 mg PO DAILY [facility] Last Admin: 08/09/17 09:19 Dose: 40 mg Lorazepam (Ativan) 2 mg IVP Q6 PRN PRN Reason: Seizure activity Losartan Potassium (Cozaar) 25 mg PO DAILY [facility] Last Admin: 08/09/17 09:17 Dose: 25 mg Mirtazapine (Remeron) 30 mg PO HS [facility] Last Admin: 08/08/17 21:36 Dose: 30 mg Ondansetron HCl (Zofran Inj) 4 mg IVP Q6 PRN PRN Reason: Nausea/Vomiting Repaglinide (Prandin) 2 mg PO TIDAC [facility] Last Admin: 08/09/17 09:18 Dose: Not Given Spironolactone (Aldactone) 25 mg PO BID [facility] Last Admin: 08/09/17 09:12 Dose: 25 mg Thiamine HCl (Vitamin B1 Tab) 100 mg PO DAILY [facility] Last Admin: 08/09/17 09:18 Dose: 100 mg - Labs Labs: 08/07/17 05:00 08/07/17 05:53 PT 15.3 Seconds (9.8-13.1) H 07/18/17 05:30 INR 1.4 (0.9-1.2) H 07/18/17 05:30 APTT 34.2 Seconds (25.6-37.1) 07/18/17 05:30 Attending/Attestation - Attestation I have personally seen and examined this patient.: Yes I have fully participated in the care of the patient.: Yes I have reviewed all pertinent clinical information, including history, physical exam and plan: Yes Notes (Text): 08/09/17 09:34 ATTESTATION ATTENDING NOTE PATIENT SEEN AND EXAMINED. CASE DISCUSSED WITH RESIDENT. AGREE WITH FINDINGS AND PLAN.
[2017-08-08] MEDS: Acetylcysteine 20% Inhal Soln (4ml) INH SCH ×2 (08:10→20:03)
[2017-08-08] MEDS: Lidocaine 5% Patch TD SCH (08:36)
[2017-08-08] MEDS: Cefepime 1 GM in Sodium Chloride 0.9% 100 ML IVPB SCH (08:37)
[2017-08-08] MEDS: diltiaZEM 180 mg/24 Hours CD Cap PO SCH (08:39)
[2017-08-08] MEDS: Insulin Regular 100 units/ml SC SCH ×4 (08:43→22:00)
[2017-08-08] MEDS ORDERED: EPOETIN ALFA 10,000 UNIT/ML ML SC SCH (09:00)
--- NOTE | 2017-08-08 13:30 | US ---
PROCEDURE: ULTRASOUND-GUIDED THORACENTESIS CLINICAL HISTORY: 66-year-old male with symptomatic pleural effusion is referred to Interventional Radiology for ultrasound-guided thoracentesis. COMPARISON: Chest radiograph dated 08/03/2017 PROCEDURE: 1. Ultrasound-guided right thoracentesis. PRE-PROCEDURE FINDINGS: 1. Large volume pleural effusion. POST-PROCEDURE FINDINGS: 1. No evidence of post-procedural complication. INTERVENTIONAL RADIOLOGIST: Jermaine Malik M.D. (the attending was present for the entire procedure) ANESTHESIA: None. MEDICATION: Lidocaine 1% for local subcutaneous analgesia. COMPLICATIONS: None. PROCEDURE DESCRIPTION AND FINDINGS: The risks, benefits, alternatives and possible complications of the procedure were fully discussed; all questions were answered and informed consent was obtained. The patient was brought into the interventional suite and a pre-procedure 'time-out' was performed. The patient was placed in the seated position. Preliminary ultrasound images of the right hemithorax demonstrate a large simple appearing pleural effusion. The right hemithorax was prepped and draped in the usual sterile fashion. Maximum sterile barrier precautions were maintained throughout the entire procedure. Following subcutaneous infiltration of lidocaine 1% for local analgesia, under ultrasound guidance, a 5 [place] centesis catheter was advanced into right pleural space with real-time visualization of needle entry. The ultrasound images were permanently recorded and submitted to the PACS. The inner stylet was removed with prompt return of straw-colored fluid. The catheter was attached to gentle vacuum suction. A total of 1200 mL of serosanguineous fluid was aspirated. The drainage catheter was then removed. A sterile adhesive bandage was placed over the puncture site. The patient tolerated the procedure well without immediate post-procedure complications and was transferred back to the floor in stable condition. IMPRESSION: SUCCESSFUL ULTRASOUND-GUIDED RIGHT THERAPEUTIC THORACENTESIS.
--- NOTE | 2017-08-08 15:02 | RAD ---
PROCEDURE: CHEST RADIOGRAPH, 1 VIEW HISTORY: pleural effusion COMPARISON: Chest radiograph dated 08/03/2017. FINDINGS: LUNGS: Pulmonary vascular congestion. Bibasilar atelectasis. PLEURA: Stable moderate to large left pleural effusion. Minimal/small right pleural effusion post recent thoracentesis. CARDIOVASCULAR: Atherosclerotic aortic calcifications. Cardiomediastinal silhouette stably enlarged. OSSEOUS STRUCTURES: Unchanged. VISUALIZED UPPER ABDOMEN: Normal. OTHER FINDINGS: Left subclavian access venous catheter, unchanged. IMPRESSION: Stable moderate to large left pleural effusion. Minimal/ small right pleural effusion post recent thoracentesis. No appreciable pneumothorax.
--- NOTE | 2017-08-08 15:34 | CT ---
PROCEDURE: CT HEAD WITHOUT CONTRAST. HISTORY: ?seizure episode, as per neuro COMPARISON: MRI brain dated 07/04/2017. TECHNIQUE: Axial computed tomography images were obtained through the head/brain without intravenous contrast. Radiation dose: Total exam DLP = 872.3 mGy-cm. This CT exam was performed using one or more of the following dose reduction techniques: Automated exposure control, adjustment of the mA and/or kV according to patient size, and/or use of iterative reconstruction technique. FINDINGS: HEMORRHAGE: No intracranial hemorrhage. BRAIN: No mass effect or edema. Mild atrophy. Chronic periventricular white matter microvascular ischemic changes. Left genu of external capsule lacunar infarction. VENTRICLES: Mildly prominent. No hydrocephalus. CALVARIUM: Unremarkable. PARANASAL SINUSES: Unremarkable as visualized. No significant inflammatory changes. MASTOID AIR CELLS: Unremarkable as visualized. No inflammatory changes. OTHER FINDINGS: None. IMPRESSION: No acute intracranial pathology.
[2017-08-08] MEDS: Bacitracin OINT 15GM TOP SCH (16:40)
--- NOTE | 2017-08-08 19:48 | CP.PCM.PN ---
Subjective - Date & Time of Evaluation Date of Evaluation: 08/08/17 Time of Evaluation: 15:45 - Subjective Subjective: Patient tolerating diet; no nausea/vomiting; no sob; Objective - Vital Signs/Intake and Output Vital Signs (last 24 hours): Temp Pulse Resp BP Pulse Ox 98.1 F 76 18 148/67 95 08/08/17 16:14 08/08/17 16:14 08/08/17 16:14 08/08/17 16:14 08/08/17 16:14 Intake and Output: 08/08/17 08/09/17 18:59 06:59 Intake Total 1050 Output Total 600 Balance 450 - Medications Medications: Current Medications Acetylcysteine (Acetylcysteine 20%) 2 ml INH RBID [facility] Last Admin: 08/08/17 08:10 Dose: 2 ml Albuterol/Ipratropium (Duoneb 3 Mg/0.5 Mg (3 Ml) Ud) 3 ml INH RQ6 [facility] Last Admin: 08/08/17 13:11 Dose: Not Given Amlodipine Besylate (Norvasc) 5 mg PO Q12H [facility] Last Admin: 08/08/17 08:38 Dose: 5 mg Bacitracin (Bacitracin Oint) 1 applic TOP DAILY [facility] Last Admin: 08/08/17 16:40 Dose: Not Given Bumetanide (Bumex) 1 mg PO BID [facility] Last Admin: 08/08/17 16:44 Dose: 1 mg Calcium Acetate (Phoslo) 2,001 mg PO 0830,1200,1830 [facility] Last Admin: 07/14/17 12:26 Dose: 2,001 mg Dextrose (Dextrose 50% Inj) 0 ml IV STAT PRN; Protocol PRN Reason: Hypoglycemia Protocol Last Admin: 08/04/17 11:36 Dose: 50 ml Dextrose (Glutose 15) 0 gm PO ONCE PRN; Protocol PRN Reason: Hypoglycemia Protocol Dextrose (Dextrose 50% Inj) 50 ml IVP Q1H PRN PRN Reason: Hypoglycemia Dextrose (Dextrose 50% Inj) 0 ml IV STAT PRN; Protocol PRN Reason: Hypoglycemia Protocol Dextrose (Glutose 15) 0 gm PO ONCE PRN; Protocol PRN Reason: Hypoglycemia Protocol Diltiazem HCl (Cardizem Cd) 360 mg PO DAILY [facility] Last Admin: 08/08/17 08:39 Dose: 360 mg Epoetin Roel (Procrit) 10,000 unit SC FRI [facility] Fluconazole (Diflucan) 200 mg PO DAILY [facility] PRN Reason: Protocol Last Admin: 08/08/17 08:38 Dose: 200 mg Glucagon (Glucagen Diagnostic Kit) 0 mg IM STAT PRN; Protocol PRN Reason: Hypoglycemia Protocol Glucagon (Glucagen Diagnostic Kit) 0 mg IM STAT PRN; Protocol PRN Reason: Hypoglycemia Protocol Heparin Sodium (Porcine) (Heparin) 5,000 units SC Q12 [facility] PRN Reason: Protocol Last Admin: 08/08/17 08:40 Dose: 5,000 units Cefepime HCl 1 gm/ Sodium (Chloride) 100 mls @ 100 mls/hr IVPB DAILY [facility] PRN Reason: Protocol Last Admin: 08/08/17 08:37 Dose: 100 mls/hr Insulin Human Regular (Humulin R) 0 units SC ACHS [facility] PRN Reason: Protocol Last Admin: 08/08/17 16:49 Dose: Not Given Lactic Acid (Lac-Hydrin 12% Lotion (225 G)) 1 applic TOP TID [facility] Last Admin: 08/08/17 16:43 Dose: 1 applic Levetiracetam (Keppra) 500 mg PO Q12H [facility] Last Admin: 08/08/17 08:36 Dose: 500 mg Levothyroxine Sodium (Synthroid) 50 mcg PO DAILY@0630 [facility] Last Admin: 08/08/17 06:53 Dose: 50 mcg Lidocaine (Lidoderm) 2 ea TD DAILY [facility] Last Admin: 08/08/17 08:36 Dose: 2 ea Lisinopril (Zestril) 40 mg PO DAILY [facility] Last Admin: 08/08/17 08:42 Dose: 40 mg Lorazepam (Ativan) 2 mg IVP Q6 PRN PRN Reason: Seizure activity Losartan Potassium (Cozaar) 25 mg PO DAILY [facility] Last Admin: 08/08/17 08:40 Dose: 25 mg Mirtazapine (Remeron) 30 mg PO HS [facility] Last Admin: 08/07/17 22:42 Dose: 30 mg Ondansetron HCl (Zofran Inj) 4 mg IVP Q6 PRN PRN Reason: Nausea/Vomiting Repaglinide (Prandin) 2 mg PO TIDAC [facility] Last Admin: 08/08/17 16:45 Dose: 2 mg Spironolactone (Aldactone) 25 mg PO BID [facility] Last Admin: 08/08/17 16:44 Dose: 25 mg Thiamine HCl (Vitamin B1 Tab) 100 mg PO DAILY [facility] Last Admin: 08/08/17 08:39 Dose: 100 mg - Labs Labs: 08/07/17 05:00 08/07/17 05:53 PT 15.3 Seconds (9.8-13.1) H 07/18/17 05:30 INR 1.4 (0.9-1.2) H 07/18/17 05:30 APTT 34.2 Seconds (25.6-37.1) 07/18/17 05:30 - Constitutional Appears: Non-toxic, No Acute Distress - Eye Exam Eye Exam: Normal appearance. absent: Scleral icterus - ENT Exam ENT Exam: Mucous Membranes Moist - Respiratory Exam Respiratory Exam: Clear to Ausculation Bilateral, Respiratory Distress Additional comments: decreased sounds at L base; - Cardiovascular Exam Cardiovascular Exam: RRR. absent: Gallop Additional comments: soft systolic murmur - GI/Abdominal Exam GI & Abdominal Exam: Soft. absent: Distended, Tenderness - Exam Exam: absent: Bladder Distension - Extremities Exam Additional comments: mild leg edema; - Neurological Exam Neurological Exam: Alert, Awake - Psychiatric Exam Psychiatric exam: absent: Agitated - Skin Skin Exam: Warm. 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
--- NOTE | 2017-08-09 00:36 | PN ---
ENDOCRINOLOGY FOLLOWUP NOTE DATE: LOCATION: Room 414. SUBJECTIVE: This is a 66-year-old male with recent uncontrolled type 2 insulin-requiring diabetes now being followed closely for metabolic management. His glucose values are fluctuating, but improved and the glucose levels have ranged from 95-200 and 252 mg/dL. With the variability of his oral intake and suboptimal meal portions, we will hold off dose titration at this time and keep him on the Prandin given as 2 mg t.i.d. before meals as ordered. We will consider the addition of basal insulin if hyperglycemic fluctuations persist thereof. We will continue the levothyroxine given as 50 mcg once daily as ordered. We will titrate incremental as indicated to optimize metabolic control. We will follow. Bettina Mann MD
[2017-08-09] MEDS: Levothyroxine 50 MCG TAB PO SCH (06:56)
[2017-08-09] MEDS: Insulin Regular 100 units/ml SC SCH ×4 (07:30→22:00)
--- NOTE | 2017-08-09 07:52 | CP.PCM.PN ---
<Mohit Rod - Last Filed: 08/09/17 12:45> Subjective - Date & Time of Evaluation Date of Evaluation: 08/09/17 Time of Evaluation: 07:52 - Subjective Subjective: Patient seen and examined bedside. The patient was transferred to [facility] last night. The patient's blood sugars inconsistent, last glucose was 63. Seen by endocrine and decided to continue prandin and correction scale. The patient is laying in bed finishing breathing treatment, NAD. Patient on NC 4 L. The patient is awake and verbal this morning. Patient has pulmonary bed in use and sites of chest tubes healing appropriately. Objective - Vital Signs/Intake and Output Vital Signs (last 24 hours): Temp Pulse Resp BP Pulse Ox 98.4 F 86 19 148/79 93 L 08/09/17 00:31 08/09/17 00:31 08/09/17 00:31 08/09/17 00:31 08/09/17 00:31 - Medications Medications: Current Medications Acetylcysteine (Acetylcysteine 20%) 2 ml INH RBID [facility] Last Admin: 08/08/17 20:03 Dose: Not Given Albuterol/Ipratropium (Duoneb 3 Mg/0.5 Mg (3 Ml) Ud) 3 ml INH RQ6 [facility] Last Admin: 08/08/17 20:03 Dose: Not Given Amlodipine Besylate (Norvasc) 5 mg PO Q12H [facility] Last Admin: 08/08/17 21:36 Dose: 5 mg Bacitracin (Bacitracin Oint) 1 applic TOP DAILY [facility] Last Admin: 08/08/17 16:40 Dose: Not Given Bumetanide (Bumex) 1 mg PO BID [facility] Last Admin: 08/08/17 16:44 Dose: 1 mg Calcium Acetate (Phoslo) 2,001 mg PO 0830,1200,1830 [facility] Last Admin: 07/14/17 12:26 Dose: 2,001 mg Dextrose (Dextrose 50% Inj) 0 ml IV STAT PRN; Protocol PRN Reason: Hypoglycemia Protocol Last Admin: 08/04/17 11:36 Dose: 50 ml Dextrose (Glutose 15) 0 gm PO ONCE PRN; Protocol PRN Reason: Hypoglycemia Protocol Dextrose (Dextrose 50% Inj) 50 ml IVP Q1H PRN PRN Reason: Hypoglycemia Dextrose (Dextrose 50% Inj) 0 ml IV STAT PRN; Protocol PRN Reason: Hypoglycemia Protocol Dextrose (Glutose 15) 0 gm PO ONCE PRN; Protocol PRN Reason: Hypoglycemia Protocol Diltiazem HCl (Cardizem Cd) 360 mg PO DAILY [facility] Last Admin: 08/08/17 08:39 Dose: 360 mg Epoetin Roel (Procrit) 10,000 unit SC FRI [facility] Fluconazole (Diflucan) 200 mg PO DAILY [facility] PRN Reason: Protocol Last Admin: 08/08/17 08:38 Dose: 200 mg Glucagon (Glucagen Diagnostic Kit) 0 mg IM STAT PRN; Protocol PRN Reason: Hypoglycemia Protocol Glucagon (Glucagen Diagnostic Kit) 0 mg IM STAT PRN; Protocol PRN Reason: Hypoglycemia Protocol Heparin Sodium (Porcine) (Heparin) 5,000 units SC Q12 [facility] PRN Reason: Protocol Last Admin: 08/08/17 21:35 Dose: 5,000 units Cefepime HCl 1 gm/ Sodium (Chloride) 100 mls @ 100 mls/hr IVPB DAILY [facility] PRN Reason: Protocol Last Admin: 08/08/17 08:37 Dose: 100 mls/hr Insulin Human Regular (Humulin R) 0 units SC ACHS [facility] PRN Reason: Protocol Last Admin: 08/08/17 22:00 Dose: Not Given Lactic Acid (Lac-Hydrin 12% Lotion (225 G)) 1 applic TOP TID [facility] Last Admin: 08/08/17 16:43 Dose: 1 applic Levetiracetam (Keppra) 500 mg PO Q12H [facility] Last Admin: 08/08/17 21:36 Dose: 500 mg Levothyroxine Sodium (Synthroid) 50 mcg PO DAILY@0630 [facility] Last Admin: 08/09/17 06:56 Dose: 50 mcg Lidocaine (Lidoderm) 2 ea TD DAILY [facility] Last Admin: 08/08/17 08:36 Dose: 2 ea Lisinopril (Zestril) 40 mg PO DAILY [facility] Last Admin: 08/08/17 08:42 Dose: 40 mg Lorazepam (Ativan) 2 mg IVP Q6 PRN PRN Reason: Seizure activity Losartan Potassium (Cozaar) 25 mg PO DAILY [facility] Last Admin: 08/08/17 08:40 Dose: 25 mg Mirtazapine (Remeron) 30 mg PO HS [facility] Last Admin: 08/08/17 21:36 Dose: 30 mg Ondansetron HCl (Zofran Inj) 4 mg IVP Q6 PRN PRN Reason: Nausea/Vomiting Repaglinide (Prandin) 2 mg PO TIDAC [facility] Last Admin: 08/08/17 16:45 Dose: 2 mg Spironolactone (Aldactone) 25 mg PO BID [facility] Last Admin: 08/08/17 16:44 Dose: 25 mg Thiamine HCl (Vitamin B1 Tab) 100 mg PO DAILY [facility] Last Admin: 08/08/17 08:39 Dose: 100 mg - Labs Labs: 08/07/17 05:00 08/07/17 05:53 PT 15.3 Seconds (9.8-13.1) H 07/18/17 05:30 INR 1.4 (0.9-1.2) H 07/18/17 05:30 APTT 34.2 Seconds (25.6-37.1) 07/18/17 05:30 - Constitutional Appears: No Acute Distress - Head Exam Head Exam: ATRAUMATIC, NORMAL INSPECTION, NORMOCEPHALIC - Eye Exam Eye Exam: Normal appearance - ENT Exam ENT Exam: Mucous Membranes Dry - Neck Exam Neck Exam: absent: Tenderness - Respiratory Exam Respiratory Exam: Rales. absent: Rhonchi, Wheezes, Respiratory Distress Additional comments: mild crackles heard on lung bases, on NC 4L - Cardiovascular Exam Cardiovascular Exam: REGULAR RHYTHM Additional comments: Systolic murmur at left mid-sternum - GI/Abdominal Exam GI & Abdominal Exam: Soft, Normal Bowel Sounds. absent: Distended, Tenderness - Extremities Exam Extremities Exam: absent: Calf Tenderness, Pedal Edema, Tenderness - Neurological Exam Neurological Exam: Alert, Awake, Oriented x3 - Skin Skin Exam: Dry Assessment and Plan - Assessment and Plan (Free Text) Assessment: 66 y/o man w/ pmh of HTN, DM, DM nephropathy, monoclonal gammopathy, recurrent L pleural effusion admitted for sepsis, Hypothermia, CHINTAN on CKD. Plan: 1) Acute respiratory failure secondary to recurrent pleural effusions. Most likely 2/2 nephrotic syndrome. - on NC, 4 L, saturating 97% - bumetanide 1 mg PO daily - cefepime 1 gm IV daily day 6 - s/p therapuetic thoracocentesis w/ IR 08/04; drained 1.2 L - c/w Chest PT Q4H via bed programming - Suctioning - Pulmonary recommendations for mucomyst, bronchodilator - ID Consult, Dr Dolan, recommendations appreciated: c/w Fluconazole PO for 3wks more from (07/25/17) - CXR 08/08: stable left pleural effusion, minimal right pleural effusion, no pneumothorax 2) Hypoglycemia - resolved - patient blood glucose 63 - patient taking PO but inconsistently - on correction scale - basal insulin held as per endocrine - monitor for acute changes 3) HTN due to CKD - preCHF: Echo 05/31/17 normal EF 60-65% - Continuing to improve but renal function gradually worsening as is expected as per Nephrology - Nephrology Consult, Dr Luz, recommendations appreciated: c/w ACEI/Cardiazem /Spironolactone, ARB, Hydralazine, bumex 4) Nephrotic Syndrome - biopsy 06/05/17- nodular glomerulosclerosis/ ~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 - Renal duplex: no renal vein thrombosis - CKD stage 4: f/u Nephrology recommendations - as per nephrology: Secondary to severe diabetic nephropathy with nephrotic sydrome; renal function stable lately after resolution of ATN; repeat 24 hr urine protein with patient on aggressive KEVIN blockade, BP control and other hemodynamicaly mediated anti-proteinuric measures; still with ~9g proteinuria; will continue same management for now; no role for immunosuppressive therapy 5) Anemia - remaining stable but no increase, EPO MWF 6) Hypothyroidism - TSH 2.93 - c/w Synthroid 50 mcg PO daily 7) Prolactinemia - Prolactin 27.1 - improving, monitor for now 8) DM type 2 - prandin 2 mg PO TIDAC - DC'ed levemir to 5 units SC HS - Lispro 8) Seizure - c/w Keppra 500mg, PO, Q12H - Neurology Consult, Dr Nicholas, recommendations appreciated: c/w Adrianara ASA held, signed off - re-consulting neurology for seizure history and AMS - CT head 08/08: shows no intracranial bleed, no acute pathology, chronic ischemic changes - f/u EEG 9) Skin breakdown - Skin tear: healing site on LEFT dorsum of hand, healing on lower back x2, - Sacral-Stage I: healing - c/w heal boots - c/w pressure off-loading - c/w lac-hydrin lotion 10) Depression - history of depression - on remeron 30 mg PO HS - psych re-consulted for decision making capacity, recommendations appreciated: patient does not have capacity to make medical decisions at this time 11) Deconditioning - PT/OT consulted and following patient 12) Diet - Modified Dysphagia with thin liquids - Consult Dietary: Recommend 60g Protein and modified dysphagia 13) DVT prophylaxis - Heparin 5,000U, SC, Q12H 14) Disposition - transfer patient to [facility] - contact older adult social work specialist regarding initiation for possible guardianship - psych consult, Dr. Bird, recommendations appreciated: deemed to not have capacity to make medical decisions at this time line: triple lumen catheter, left subclavian <Rocio Whitt - Last Filed: 08/10/17 08:39> Objective - Vital Signs/Intake and Output Vital Signs (last 24 hours): Temp Pulse Resp BP Pulse Ox 98.3 F 79 20 157/71 H 97 08/10/17 08:06 08/10/17 08:06 08/10/17 08:06 08/10/17 08:06 08/10/17 08:06 - Medications Medications: Current Medications Acetylcysteine (Acetylcysteine 20%) 2 ml INH RBID [facility] Last Admin: 08/09/17 19:05 Dose: 2 ml Albuterol/Ipratropium (Duoneb 3 Mg/0.5 Mg (3 Ml) Ud) 3 ml INH RQ6 [facility] Last Admin: 08/10/17 02:03 Dose: Not Given Amlodipine Besylate (Norvasc) 5 mg PO Q12H [facility] Last Admin: 08/09/17 20:58 Dose: 5 mg Bacitracin (Bacitracin Oint) 1 applic TOP DAILY [facility] Last Admin: 08/09/17 13:12 Dose: Not Given Bumetanide (Bumex) 1 mg PO BID [facility] Last Admin: 08/09/17 17:38 Dose: Not Given Calcium Acetate (Phoslo) 2,001 mg PO 0830,1200,1830 [facility] Last Admin: 07/14/17 12:26 Dose: 2,001 mg Dextrose (Dextrose 50% Inj) 0 ml IV STAT PRN; Protocol PRN Reason: Hypoglycemia Protocol Last Admin: 08/04/17 11:36 Dose: 50 ml Dextrose (Glutose 15) 0 gm PO ONCE PRN; Protocol PRN Reason: Hypoglycemia Protocol Dextrose (Dextrose 50% Inj) 50 ml IVP Q1H PRN PRN Reason: Hypoglycemia Dextrose (Dextrose 50% Inj) 0 ml IV STAT PRN; Protocol PRN Reason: Hypoglycemia Protocol Dextrose (Glutose 15) 0 gm PO ONCE PRN; Protocol PRN Reason: Hypoglycemia Protocol Diltiazem HCl (Cardizem Cd) 360 mg PO DAILY [facility] Last Admin: 08/09/17 09:16 Dose: 360 mg Epoetin Roel (Procrit) 10,000 unit SC FRI [facility] Fluconazole (Diflucan) 200 mg PO DAILY [facility] PRN Reason: Protocol Last Admin: 08/09/17 09:17 Dose: 200 mg Glucagon (Glucagen Diagnostic Kit) 0 mg IM STAT PRN; Protocol PRN Reason: Hypoglycemia Protocol Glucagon (Glucagen Diagnostic Kit) 0 mg IM STAT PRN; Protocol PRN Reason: Hypoglycemia Protocol Heparin Sodium (Porcine) (Heparin) 5,000 units SC Q12 [facility] PRN Reason: Protocol Last Admin: 08/09/17 20:50 Dose: Not Given Hydralazine HCl (Apresoline) 25 mg PO TID [facility] Last Admin: 08/09/17 17:38 Dose: Not Given Cefepime HCl 1 gm/ Sodium (Chloride) 100 mls @ 100 mls/hr IVPB DAILY [facility] PRN Reason: Protocol Last Admin: 08/09/17 09:17 Dose: 100 mls/hr Insulin Human Regular (Humulin R) 0 units SC ACHS [facility] PRN Reason: Protocol Last Admin: 08/10/17 06:44 Dose: Not Given Lactic Acid (Lac-Hydrin 12% Lotion (225 G)) 1 applic TOP TID [facility] Last Admin: 08/09/17 17:34 Dose: 1 applic Levetiracetam (Keppra) 500 mg PO Q12H [facility] Last Admin: 08/09/17 20:57 Dose: 500 mg Levothyroxine Sodium (Synthroid) 50 mcg PO DAILY@0630 [facility] Last Admin: 08/10/17 06:43 Dose: 50 mcg Lidocaine (Lidoderm) 2 ea TD DAILY [facility] Last Admin: 08/09/17 09:36 Dose: Not Given Lisinopril (Zestril) 40 mg PO DAILY [facility] Last Admin: 08/09/17 09:19 Dose: 40 mg Lorazepam (Ativan) 2 mg IVP Q6 PRN PRN Reason: Seizure activity Losartan Potassium (Cozaar) 25 mg PO DAILY [facility] Last Admin: 08/09/17 09:17 Dose: 25 mg Mirtazapine (Remeron) 30 mg PO HS [facility] Last Admin: 08/09/17 21:00 Dose: 30 mg Ondansetron HCl (Zofran Inj) 4 mg IVP Q6 PRN PRN Reason: Nausea/Vomiting Repaglinide (Prandin) 2 mg PO TIDAC [facility] Last Admin: 08/09/17 17:37 Dose: Not Given Spironolactone (Aldactone) 25 mg PO BID [facility] Last Admin: 08/09/17 17:38 Dose: Not Given Thiamine HCl (Vitamin B1 Tab) 100 mg PO DAILY [facility] Last Admin: 08/09/17 09:18 Dose: 100 mg - Labs Labs: 08/07/17 05:00 08/07/17 05:53 PT 15.3 Seconds (9.8-13.1) H 07/18/17 05:30 INR 1.4 (0.9-1.2) H 07/18/17 05:30 APTT 34.2 Seconds (25.6-37.1) 07/18/17 05:30 Attending/Attestation - Attestation I have personally seen and examined this patient.: Yes I have fully participated in the care of the patient.: Yes I have reviewed all pertinent clinical information, including history, physical exam and plan: Yes Notes (Text): 08/10/17 08:38 ATTESTATIN ATTENDING STATEMENT PATIENT SEEN AND EXAMINED. CASE DISCUSSED WITH RESIDENT. AGREE WITH FINDINGS AND PLAN.
[2017-08-09] MEDS: Albuterol-Ipratrop 3 mg / 0.5 (3 ml) UD INH SCH ×4 (08:19→19:05)
[2017-08-09] MEDS: Acetylcysteine 20% Inhal Soln (4ml) INH SCH ×2 (08:19→19:05)
[2017-08-09] MEDS: diltiaZEM 180 mg/24 Hours CD Cap PO SCH (09:16)
[2017-08-09] MEDS: Cefepime 1 GM in Sodium Chloride 0.9% 100 ML IVPB SCH (09:17)
[2017-08-09] MEDS: Lidocaine 5% Patch TD SCH ×2 (09:18→09:36)
[2017-08-09] MEDS: Bacitracin OINT 15GM TOP SCH (13:12)
--- NOTE | 2017-08-09 13:44 | PN ---
DATE: ENDO FOLLOWUP NOTE LOCATION: Room 668. SUBJECTIVE: This is a 66-year-old male with recent uncontrolled type 2 diabetes and hypothyroidism, now being followed closely for metabolic management. His glycemic levels were low normal over with the fasting glucose today of 63 mg/dL. It was 180 to 219 yesterday as noted. His oral intake is extremely variable and suboptimal as per the nursing staff, so at this time, we will continue the low-dose oral hypoglycemic drug therapy as given with Prandin given as 2 mg p.o. t.i.d. before meals as ordered. We will titrate incrementally as indicated to optimize metabolic control. We will follow and advice accordingly. Bettina Mann MD
[2017-08-10] MEDS: Albuterol-Ipratrop 3 mg / 0.5 (3 ml) UD INH SCH ×4 (02:03→19:25)
[2017-08-10] MEDS: Levothyroxine 50 MCG TAB PO SCH (06:43)
[2017-08-10] MEDS: Insulin Regular 100 units/ml SC SCH ×4 (06:44→22:10)
--- NOTE | 2017-08-10 08:19 | CP.PCM.PN ---
<Johnnie Swan T - Last Filed: 08/10/17 12:36> Subjective - Date & Time of Evaluation Date of Evaluation: 08/10/17 Time of Evaluation: 08:00 - Subjective Subjective: Pt seen and examined at bedside. Denies any overnight complaints or problems, but is only alert to self and not date nor location. Does not appear to be in any respiratory distress or any other type of discomfort. Objective - Vital Signs/Intake and Output Vital Signs (last 24 hours): Temp Pulse Resp BP Pulse Ox 98.3 F 79 20 157/71 H 97 08/10/17 08:06 08/10/17 08:06 08/10/17 08:06 08/10/17 08:06 08/10/17 08:06 - Medications Medications: Current Medications Acetylcysteine (Acetylcysteine 20%) 2 ml INH RBID [facility] Last Admin: 08/09/17 19:05 Dose: 2 ml Albuterol/Ipratropium (Duoneb 3 Mg/0.5 Mg (3 Ml) Ud) 3 ml INH RQ6 [facility] Last Admin: 08/10/17 02:03 Dose: Not Given Amlodipine Besylate (Norvasc) 5 mg PO Q12H [facility] Last Admin: 08/09/17 20:58 Dose: 5 mg Bacitracin (Bacitracin Oint) 1 applic TOP DAILY [facility] Last Admin: 08/09/17 13:12 Dose: Not Given Bumetanide (Bumex) 1 mg PO BID [facility] Last Admin: 08/09/17 17:38 Dose: Not Given Calcium Acetate (Phoslo) 2,001 mg PO 0830,1200,1830 [facility] Last Admin: 07/14/17 12:26 Dose: 2,001 mg Dextrose (Dextrose 50% Inj) 0 ml IV STAT PRN; Protocol PRN Reason: Hypoglycemia Protocol Last Admin: 08/04/17 11:36 Dose: 50 ml Dextrose (Glutose 15) 0 gm PO ONCE PRN; Protocol PRN Reason: Hypoglycemia Protocol Dextrose (Dextrose 50% Inj) 50 ml IVP Q1H PRN PRN Reason: Hypoglycemia Dextrose (Dextrose 50% Inj) 0 ml IV STAT PRN; Protocol PRN Reason: Hypoglycemia Protocol Dextrose (Glutose 15) 0 gm PO ONCE PRN; Protocol PRN Reason: Hypoglycemia Protocol Diltiazem HCl (Cardizem Cd) 360 mg PO DAILY [facility] Last Admin: 08/09/17 09:16 Dose: 360 mg Epoetin Roel (Procrit) 10,000 unit SC FRI [facility] Fluconazole (Diflucan) 200 mg PO DAILY [facility] PRN Reason: Protocol Last Admin: 08/09/17 09:17 Dose: 200 mg Glucagon (Glucagen Diagnostic Kit) 0 mg IM STAT PRN; Protocol PRN Reason: Hypoglycemia Protocol Glucagon (Glucagen Diagnostic Kit) 0 mg IM STAT PRN; Protocol PRN Reason: Hypoglycemia Protocol Heparin Sodium (Porcine) (Heparin) 5,000 units SC Q12 [facility] PRN Reason: Protocol Last Admin: 08/09/17 20:50 Dose: Not Given Hydralazine HCl (Apresoline) 25 mg PO TID [facility] Last Admin: 08/09/17 17:38 Dose: Not Given Cefepime HCl 1 gm/ Sodium (Chloride) 100 mls @ 100 mls/hr IVPB DAILY [facility] PRN Reason: Protocol Last Admin: 08/09/17 09:17 Dose: 100 mls/hr Insulin Human Regular (Humulin R) 0 units SC ACHS [facility] PRN Reason: Protocol Last Admin: 08/10/17 06:44 Dose: Not Given Lactic Acid (Lac-Hydrin 12% Lotion (225 G)) 1 applic TOP TID [facility] Last Admin: 08/09/17 17:34 Dose: 1 applic Levetiracetam (Keppra) 500 mg PO Q12H [facility] Last Admin: 08/09/17 20:57 Dose: 500 mg Levothyroxine Sodium (Synthroid) 50 mcg PO DAILY@0630 [facility] Last Admin: 08/10/17 06:43 Dose: 50 mcg Lidocaine (Lidoderm) 2 ea TD DAILY [facility] Last Admin: 08/09/17 09:36 Dose: Not Given Lisinopril (Zestril) 40 mg PO DAILY [facility] Last Admin: 08/09/17 09:19 Dose: 40 mg Lorazepam (Ativan) 2 mg IVP Q6 PRN PRN Reason: Seizure activity Losartan Potassium (Cozaar) 25 mg PO DAILY [facility] Last Admin: 08/09/17 09:17 Dose: 25 mg Mirtazapine (Remeron) 30 mg PO HS [facility] Last Admin: 08/09/17 21:00 Dose: 30 mg Ondansetron HCl (Zofran Inj) 4 mg IVP Q6 PRN PRN Reason: Nausea/Vomiting Repaglinide (Prandin) 2 mg PO TIDAC [facility] Last Admin: 08/09/17 17:37 Dose: Not Given Spironolactone (Aldactone) 25 mg PO BID [facility] Last Admin: 08/09/17 17:38 Dose: Not Given Thiamine HCl (Vitamin B1 Tab) 100 mg PO DAILY [facility] Last Admin: 08/09/17 09:18 Dose: 100 mg - Labs Labs: 08/07/17 05:00 08/07/17 05:53 PT 15.3 Seconds (9.8-13.1) H 07/18/17 05:30 INR 1.4 (0.9-1.2) H 07/18/17 05:30 APTT 34.2 Seconds (25.6-37.1) 07/18/17 05:30 - Additional Findings Additional findings: - Constitutional Appears: No Acute Distress - Eye Exam Eye Exam: Normal appearance - ENT Exam ENT Exam: Mucous Membranes Dry - Respiratory Exam Respiratory Exam: Rales. absent: Rhonchi, Wheezes, Respiratory Distress Additional comments: mild crackles heard on lung bases, on NC 4L - Cardiovascular Exam Cardiovascular Exam: REGULAR RHYTHM Additional comments: Systolic murmur at left mid-sternum - GI/Abdominal Exam GI & Abdominal Exam: Soft, Normal Bowel Sounds. absent: Distended, Tenderness - Extremities Exam Extremities Exam: absent: Calf Tenderness, Pedal Edema, Tenderness - Skin Skin Exam: Dry Assessment and Plan - Assessment and Plan (Free Text) Plan: 66 y/o man w/ pmh of HTN, DM, DM nephropathy, monoclonal gammopathy, recurrent L pleural effusion admitted for sepsis, Hypothermia, CHINTAN on CKD. 1) Acute respiratory failure secondary to recurrent pleural effusions. Most likely 2/2 nephrotic syndrome. - on NC, 4 L, currently sat at 96-97% - no tachypnea noted on physical exam - bumetanide 1 mg PO daily - cefepime 1 gm IV daily day 7 - s/p therapuetic thoracocentesis w/ IR 08/04; drained 1.2 L - c/w Chest PT Q4H via bed programming - Suctioning - Pulmonary recommendations for mucomyst, bronchodilator - ID Consult, Dr Dolan, recommendations appreciated: c/w Fluconazole PO for 3wks more from (07/25/17) - CXR 08/08: stable left pleural effusion, minimal right pleural effusion, no pneumothorax 2) Hypoglycemia - resolved - patient blood glucose 63 - patient taking PO but inconsistently - on correction scale - basal insulin held as per endocrine - monitor for acute changes 3) HTN due to CKD - preCHF: Echo 05/31/17 normal EF 60-65% - Continuing to improve but renal function gradually worsening as is expected as per Nephrology - Nephrology Consult, Dr Luz, recommendations appreciated: c/w ACEI/Cardiazem /Spironolactone, ARB, Hydralazine, bumex 4) Nephrotic Syndrome - biopsy 06/05/17- nodular glomerulosclerosis/ ~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 - Renal duplex: no renal vein thrombosis - CKD stage 4: f/u Nephrology recommendations - as per nephrology: Secondary to severe diabetic nephropathy with nephrotic sydrome; renal function stable lately after resolution of ATN; repeat 24 hr urine protein with patient on aggressive KEVIN blockade, BP control and other hemodynamicaly mediated anti-proteinuric measures; still with ~9g proteinuria; will continue same management for now; no role for immunosuppressive therapy 5) Anemia - remaining stable but no increase, EPO MWF 6) Hypothyroidism - TSH 2.93 - c/w Synthroid 50 mcg PO daily 7) Prolactinemia - Prolactin 27.1 - improving, monitor for now 8) DM type 2 - prandin 2 mg PO TIDAC - DC'ed levemir to 5 units SC HS - Lispro 8) Seizure - c/w Keppra 500mg, PO, Q12H - Neurology Consult, Dr Nicholas, recommendations appreciated: c/w Keppra, ASA held, signed off - re-consulting neurology for seizure history and AMS - CT head 08/08: shows no intracranial bleed, no acute pathology, chronic ischemic changes - f/u EEG 9) Skin breakdown - Skin tear: healing site on LEFT dorsum of hand, healing on lower back x2, - Sacral-Stage I: healing - c/w heal boots - c/w pressure off-loading - c/w lac-hydrin lotion 10) Depression - history of depression - on remeron 30 mg PO HS - psych re-consulted for decision making capacity, recommendations appreciated: patient does not have capacity to make medical decisions at this time 11) Deconditioning - PT/OT consulted and following patient 12) Diet - Modified Dysphagia with thin liquids - Consult Dietary: Recommend 60g Protein and modified dysphagia 13) DVT prophylaxis - Heparin 5,000U, SC, Q12H 14) Disposition - transfer patient to [facility] - contact public health social worker regarding initiation for possible guardianship - psych consult, Dr. Bird, recommendations appreciated: deemed to not have capacity to make medical decisions at this time line: triple lumen catheter, left subclavian <Rocio Whitt - Last Filed: 08/11/17 10:23> Objective - Vital Signs/Intake and Output Vital Signs (last 24 hours): Temp Pulse Resp BP Pulse Ox 97.9 F 93 H 20 143/73 93 L 08/11/17 08:34 08/11/17 10:15 08/11/17 08:34 08/11/17 10:15 08/11/17 08:34 - Medications Medications: Current Medications Acetylcysteine (Acetylcysteine 20%) 2 ml INH RBID [facility] Last Admin: 08/11/17 07:09 Dose: 2 ml Albuterol/Ipratropium (Duoneb 3 Mg/0.5 Mg (3 Ml) Ud) 3 ml INH RQ6 [facility] Last Admin: 08/11/17 07:09 Dose: 3 ml Amlodipine Besylate (Norvasc) 5 mg PO Q12H [facility] Last Admin: 08/11/17 10:13 Dose: 5 mg Bacitracin (Bacitracin Oint) 1 applic TOP DAILY [facility] Last Admin: 08/10/17 11:48 Dose: Not Given Bumetanide (Bumex) 1 mg PO BID [facility] Last Admin: 08/11/17 10:09 Dose: 1 mg Calcium Acetate (Phoslo) 2,001 mg PO 0830,1200,1830 [facility] Last Admin: 07/14/17 12:26 Dose: 2,001 mg Dextrose (Dextrose 50% Inj) 0 ml IV STAT PRN; Protocol PRN Reason: Hypoglycemia Protocol Last Admin: 08/04/17 11:36 Dose: 50 ml Dextrose (Glutose 15) 0 gm PO ONCE PRN; Protocol PRN Reason: Hypoglycemia Protocol Dextrose (Dextrose 50% Inj) 50 ml IVP Q1H PRN PRN Reason: Hypoglycemia Dextrose (Dextrose 50% Inj) 0 ml IV STAT PRN; Protocol PRN Reason: Hypoglycemia Protocol Dextrose (Glutose 15) 0 gm PO ONCE PRN; Protocol PRN Reason: Hypoglycemia Protocol Diltiazem HCl (Cardizem Cd) 360 mg PO DAILY [facility] Last Admin: 08/11/17 10:09 Dose: 360 mg Epoetin Roel (Procrit) 10,000 unit SC FRI [facility] Fluconazole (Diflucan) 200 mg PO DAILY [facility] PRN Reason: Protocol Last Admin: 08/11/17 10:11 Dose: 200 mg Glucagon (Glucagen Diagnostic Kit) 0 mg IM STAT PRN; Protocol PRN Reason: Hypoglycemia Protocol Glucagon (Glucagen Diagnostic Kit) 0 mg IM STAT PRN; Protocol PRN Reason: Hypoglycemia Protocol Heparin Sodium (Porcine) (Heparin) 5,000 units SC Q12 [facility] PRN Reason: Protocol Last Admin: 08/11/17 10:11 Dose: Not Given Hydralazine HCl (Apresoline) 25 mg PO TID [facility] Last Admin: 08/11/17 10:07 Dose: 25 mg Cefepime HCl 1 gm/ Sodium (Chloride) 100 mls @ 100 mls/hr IVPB DAILY [facility] PRN Reason: Protocol Last Admin: 08/11/17 10:13 Dose: 100 mls/hr Insulin Human Regular (Humulin R) 0 units SC ACHS [facility] PRN Reason: Protocol Last Admin: 08/11/17 10:11 Dose: Not Given Lactic Acid (Lac-Hydrin 12% Lotion (225 G)) 1 applic TOP TID [facility] Last Admin: 08/11/17 10:12 Dose: 1 applic Levetiracetam (Keppra) 500 mg PO Q12H [facility] Last Admin: 08/11/17 10:06 Dose: 500 mg Levothyroxine Sodium (Synthroid) 50 mcg PO DAILY@0630 [facility] Last Admin: 08/11/17 06:16 Dose: 50 mcg Lidocaine (Lidoderm) 2 ea TD DAILY [facility] Last Admin: 08/11/17 10:12 Dose: 2 ea Lisinopril (Zestril) 40 mg PO DAILY [facility] Last Admin: 08/11/17 10:15 Dose: 40 mg Lorazepam (Ativan) 2 mg IVP Q6 PRN PRN Reason: Seizure activity Losartan Potassium (Cozaar) 25 mg PO DAILY [facility] Last Admin: 08/11/17 10:10 Dose: 25 mg Mirtazapine (Remeron) 30 mg PO HS [facility] Last Admin: 08/10/17 23:19 Dose: 30 mg Ondansetron HCl (Zofran Inj) 4 mg IVP Q6 PRN PRN Reason: Nausea/Vomiting Repaglinide (Prandin) 2 mg PO TIDAC [facility] Last Admin: 08/11/17 10:15 Dose: Not Given Spironolactone (Aldactone) 25 mg PO BID [facility] Last Admin: 08/11/17 10:07 Dose: 25 mg Thiamine HCl (Vitamin B1 Tab) 100 mg PO DAILY [facility] Last Admin: 08/11/17 10:16 Dose: 100 mg - Labs Labs: 08/10/17 10:30 08/11/17 06:10 PT 15.3 Seconds (9.8-13.1) H 07/18/17 05:30 INR 1.4 (0.9-1.2) H 07/18/17 05:30 APTT 34.2 Seconds (25.6-37.1) 07/18/17 05:30 Attending/Attestation - Attestation I have personally seen and examined this patient.: Yes I have fully participated in the care of the patient.: Yes I have reviewed all pertinent clinical information, including history, physical exam and plan: Yes Notes (Text): 08/11/17 10:23 ATTENDING NOTE - ATTESTATION PATIENT SEEN AND EXAMINED. CASE DISCUSSED WITH RESIDENT. AGREE WITH FINDINGS AND PLAN.
[2017-08-10] MEDS: Acetylcysteine 20% Inhal Soln (4ml) INH SCH ×2 (08:44→19:25)
[2017-08-10 11:40] LABS: CALCIUM 7.9 mg/dL (8.4-10.2)
[2017-08-10 11:43] LABS: HEMOGLOBIN 10.9 g/dL (12.0-18.0); MEAN CELL VOLUME 89.5 fl (80.0-94.0); MEAN CORPUSCULAR HGB CONC 31.3 g/dL (33.0-37.0); RBC 3.89 Mil/uL (4.40-5.90); RED CELL DISTRIBUTION WIDTH 17.8 % (11.5-14.5); WHITE BLOOD COUNT 7.8 K/uL (4.8-10.8)
[2017-08-10] MEDS: diltiaZEM 180 mg/24 Hours CD Cap PO SCH (11:48)
[2017-08-10] MEDS: Bacitracin OINT 15GM TOP SCH (11:48)
[2017-08-10] MEDS: Lidocaine 5% Patch TD SCH (11:49)
--- NOTE | 2017-08-10 12:16 | PN ---
DATE: ENDO FOLLOWUP NOTE LOCATION: Room 668. SUBJECTIVE: This is a 66-year-old male with recent uncontrolled type 2 insulin requiring diabetes, now being followed closely for metabolic management. His glycemic levels are fluctuating as his oral intake is also quite suboptimal and variable at this time. His glucose values have ranged from 96 mg/dL to 126 mg/dL. His latest chemistry showed BUN of 41, sodium of 146, potassium of 4.7, chloride of 111, CO2 of 28, glucose of 98, and creatinine of 1.9. So at this time, we will continue the same low-dose oral hypoglycemic drug therapy as given with Prandin given as 2 mg p.o. t.i.d. before meals as ordered. We will continue also the low-dose correction scale using regular insulin as given. We will follow and advice accordingly. Bettina Mann MD
[2017-08-10] MEDS: Cefepime 1 GM in Sodium Chloride 0.9% 100 ML IVPB SCH (12:39)
[2017-08-11] MEDS: Albuterol-Ipratrop 3 mg / 0.5 (3 ml) UD INH SCH ×4 (01:01→19:00)
[2017-08-11] MEDS: Levothyroxine 50 MCG TAB PO SCH (06:16)
[2017-08-11 07:05] LABS: ALB/GLOB RATIO 0.8 (1.0-2.1); ALBUMIN 2.8 g/dL (3.5-5.0); CALCIUM 8.3 mg/dL (8.4-10.2)
[2017-08-11] MEDS: Acetylcysteine 20% Inhal Soln (4ml) INH SCH ×2 (07:09→19:00)
[2017-08-11 07:15] LABS: T4 7.06 ug/dl (5.5-11.0)
--- NOTE | 2017-08-11 07:33 | CP.PCM.PN ---
Subjective - Date & Time of Evaluation Date of Evaluation: 08/11/17 Time of Evaluation: 07:33 - Subjective Subjective: Patient seen and examined bedside. The patient was transferred to [facility] last night. The patient's blood sugars inconsistent, last glucose was 69. Seen by nutrition and endocrine. The patient is laying, NAD. Patient on NC 4 L. The patient is awake and verbal this morning. Patient has pulmonary bed in use and sites of chest tubes healing appropriately. Objective - Vital Signs/Intake and Output Vital Signs (last 24 hours): Temp Pulse Resp BP Pulse Ox 98.4 F 77 20 157/72 H 97 08/11/17 00:10 08/11/17 00:10 08/11/17 00:10 08/11/17 00:10 08/11/17 00:10 - Medications Medications: Current Medications Acetylcysteine (Acetylcysteine 20%) 2 ml INH RBID [facility] Last Admin: 08/11/17 07:09 Dose: 2 ml Albuterol/Ipratropium (Duoneb 3 Mg/0.5 Mg (3 Ml) Ud) 3 ml INH RQ6 [facility] Last Admin: 08/11/17 07:09 Dose: 3 ml Amlodipine Besylate (Norvasc) 5 mg PO Q12H [facility] Last Admin: 08/10/17 22:50 Dose: 5 mg Bacitracin (Bacitracin Oint) 1 applic TOP DAILY [facility] Last Admin: 08/10/17 11:48 Dose: Not Given Bumetanide (Bumex) 1 mg PO BID [facility] Last Admin: 08/10/17 17:07 Dose: 1 mg Calcium Acetate (Phoslo) 2,001 mg PO 0830,1200,1830 [facility] Last Admin: 07/14/17 12:26 Dose: 2,001 mg Dextrose (Dextrose 50% Inj) 0 ml IV STAT PRN; Protocol PRN Reason: Hypoglycemia Protocol Last Admin: 08/04/17 11:36 Dose: 50 ml Dextrose (Glutose 15) 0 gm PO ONCE PRN; Protocol PRN Reason: Hypoglycemia Protocol Dextrose (Dextrose 50% Inj) 50 ml IVP Q1H PRN PRN Reason: Hypoglycemia Dextrose (Dextrose 50% Inj) 0 ml IV STAT PRN; Protocol PRN Reason: Hypoglycemia Protocol Dextrose (Glutose 15) 0 gm PO ONCE PRN; Protocol PRN Reason: Hypoglycemia Protocol Diltiazem HCl (Cardizem Cd) 360 mg PO DAILY [facility] Last Admin: 08/10/17 11:48 Dose: Not Given Epoetin Roel (Procrit) 10,000 unit SC FRI [facility] Fluconazole (Diflucan) 200 mg PO DAILY [facility] PRN Reason: Protocol Last Admin: 08/10/17 13:07 Dose: Not Given Glucagon (Glucagen Diagnostic Kit) 0 mg IM STAT PRN; Protocol PRN Reason: Hypoglycemia Protocol Glucagon (Glucagen Diagnostic Kit) 0 mg IM STAT PRN; Protocol PRN Reason: Hypoglycemia Protocol Heparin Sodium (Porcine) (Heparin) 5,000 units SC Q12 [facility] PRN Reason: Protocol Last Admin: 08/10/17 21:00 Dose: Not Given Hydralazine HCl (Apresoline) 25 mg PO TID [facility] Last Admin: 08/10/17 17:07 Dose: 25 mg Cefepime HCl 1 gm/ Sodium (Chloride) 100 mls @ 100 mls/hr IVPB DAILY [facility] PRN Reason: Protocol Last Admin: 08/10/17 12:39 Dose: 100 mls/hr Insulin Human Regular (Humulin R) 0 units SC ACHS [facility] PRN Reason: Protocol Last Admin: 08/10/17 22:10 Dose: Not Given Lactic Acid (Lac-Hydrin 12% Lotion (225 G)) 1 applic TOP TID [facility] Last Admin: 08/10/17 17:10 Dose: 1 applic Levetiracetam (Keppra) 500 mg PO Q12H [facility] Last Admin: 08/10/17 23:20 Dose: 500 mg Levothyroxine Sodium (Synthroid) 50 mcg PO DAILY@0630 [facility] Last Admin: 08/11/17 06:16 Dose: 50 mcg Lidocaine (Lidoderm) 2 ea TD DAILY [facility] Last Admin: 08/10/17 11:49 Dose: Not Given Lisinopril (Zestril) 40 mg PO DAILY [facility] Last Admin: 08/10/17 11:49 Dose: Not Given Lorazepam (Ativan) 2 mg IVP Q6 PRN PRN Reason: Seizure activity Losartan Potassium (Cozaar) 25 mg PO DAILY [facility] Last Admin: 08/10/17 11:48 Dose: Not Given Mirtazapine (Remeron) 30 mg PO HS [facility] Last Admin: 08/10/17 23:19 Dose: 30 mg Ondansetron HCl (Zofran Inj) 4 mg IVP Q6 PRN PRN Reason: Nausea/Vomiting Repaglinide (Prandin) 2 mg PO TIDAC [facility] Last Admin: 08/10/17 17:09 Dose: 2 mg Spironolactone (Aldactone) 25 mg PO BID [facility] Last Admin: 08/10/17 17:07 Dose: 25 mg Thiamine HCl (Vitamin B1 Tab) 100 mg PO DAILY [facility] Last Admin: 08/10/17 11:49 Dose: Not Given - Labs Labs: 08/10/17 10:30 08/11/17 06:10 PT 15.3 Seconds (9.8-13.1) H 07/18/17 05:30 INR 1.4 (0.9-1.2) H 07/18/17 05:30 APTT 34.2 Seconds (25.6-37.1) 07/18/17 05:30 - Constitutional Appears: No Acute Distress - Head Exam Head Exam: ATRAUMATIC, NORMAL INSPECTION, NORMOCEPHALIC - Eye Exam Eye Exam: Normal appearance - ENT Exam ENT Exam: Mucous Membranes Dry - Neck Exam Neck Exam: absent: Tenderness - Respiratory Exam Respiratory Exam: Rales. absent: Rhonchi, Wheezes, Respiratory Distress Additional comments: mild crackles heard on lung bases, on NC 4L - Cardiovascular Exam Cardiovascular Exam: REGULAR RHYTHM Additional comments: Systolic murmur at left mid-sternum - GI/Abdominal Exam GI & Abdominal Exam: Soft, Normal Bowel Sounds. absent: Distended, Tenderness - Extremities Exam Extremities Exam: absent: Calf Tenderness, Pedal Edema, Tenderness - Neurological Exam Neurological Exam: Alert, Awake, Oriented x3 - Skin Skin Exam: Dry Assessment and Plan - Assessment and Plan (Free Text) Assessment: 66 y/o man w/ pmh of HTN, DM, DM nephropathy, monoclonal gammopathy, recurrent L pleural effusion admitted for sepsis, Hypothermia, CHINTAN on CKD. Plan: 1) Acute respiratory failure secondary to recurrent pleural effusions. Most likely 2/2 nephrotic syndrome. - on NC, 4 L, saturating 97% - bumetanide 1 mg PO daily - cefepime 1 gm IV daily day 8 - s/p therapuetic thoracocentesis w/ IR 08/04; drained 1.2 L - c/w Chest PT Q4H via bed programming - Suctioning - Pulmonary recommendations for mucomyst, bronchodilator - ID Consult, Dr Dolan, recommendations appreciated: c/w Fluconazole PO for 3wks more from (07/25/17) - CXR 08/08: stable left pleural effusion, minimal right pleural effusion, no pneumothorax 2) Hyperkalemia - K+ 5.4 - kayexelate 15 mg PO - f/u BMP - monitor for acute changes 3) Hypoglycemia - resolved - patient blood glucose 69 - patient taking PO but inconsistently - on correction scale - basal insulin held as per endocrine - monitor for acute changes 4) HTN due to CKD - preCHF: Echo 05/31/17 normal EF 60-65% - Continuing to improve but renal function gradually worsening as is expected as per Nephrology - Nephrology Consult, Dr Luz, recommendations appreciated: c/w ACEI/Cardiazem /Spironolactone, ARB, Hydralazine, bumex 5) Nephrotic Syndrome - biopsy 06/05/17- nodular glomerulosclerosis/ ~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 - Renal duplex: no renal vein thrombosis - CKD stage 4: f/u Nephrology recommendations - as per nephrology: Secondary to severe diabetic nephropathy with nephrotic sydrome; renal function stable lately after resolution of ATN; repeat 24 hr urine protein with patient on aggressive KEVIN blockade, BP control and other hemodynamicaly mediated anti-proteinuric measures; still with ~9g proteinuria; will continue same management for now; no role for immunosuppressive therapy 6) Anemia - remaining stable but no increase, EPO weekly on Friday's 7) Hypothyroidism - TSH 4.19 - c/w Synthroid 50 mcg PO daily 8) Prolactinemia - Prolactin 27.1 - improving, monitor for now 9) DM type 2 - prandin 2 mg PO TIDAC - DC'ed levemir to 5 units SC HS - Lispro 10) Seizure - c/w Keppra 500mg, PO, Q12H - Neurology Consult, Dr Nicholas, recommendations appreciated: c/w Keppra, ASA held, signed off - re-consulting neurology for seizure history and AMS - CT head 08/08: shows no intracranial bleed, no acute pathology, chronic ischemic changes - f/u EEG 11) Skin breakdown - Skin tear: healing site on LEFT dorsum of hand, healing on lower back x2, - Sacral-Stage I: healing - c/w heal boots - c/w pressure off-loading - c/w lac-hydrin lotion 12) Depression - History of depression - on remeron 30 mg PO HS - psych re-consulted for decision making capacity, recommendations appreciated: patient does not have capacity to make medical decisions at this time 13) Deconditioning - PT/OT consulted and following patient 14) Diet - Modified Dysphagia with thin liquids - Consult Dietary: Recommend 60g Protein and modified dysphagia - on glucerna shake 8 oz - 3 day calorie count - speech and swallow re-consulted - dietary recommendations appreciated 15) DVT prophylaxis - Heparin 5,000U, SC, Q12H 16) Disposition - transfer patient to [facility] - contact social media editor regarding initiation for possible guardianship - psych consult, Dr. Bird, recommendations appreciated: deemed to not have capacity to make medical decisions at this time line: triple lumen catheter, left subclavian
[2017-08-11] MEDS: diltiaZEM 180 mg/24 Hours CD Cap PO SCH (10:09)
[2017-08-11] MEDS: Insulin Regular 100 units/ml SC SCH ×3 (10:11→22:31)
[2017-08-11] MEDS: Lidocaine 5% Patch TD SCH ×2 (10:12→10:53)
[2017-08-11] MEDS: Cefepime 1 GM in Sodium Chloride 0.9% 100 ML IVPB SCH (10:13)
[2017-08-11] MEDS ORDERED: Sod Polystyrene Sulf 15 gm/60 ml Susp PO ONE ×2 (11:30→12:16)
--- NOTE | 2017-08-11 16:03 | PCM.EEG ---
Electroencephalogram Report - Electroencephalogram Report Procedure Date: 08/11/17 Interpretation: Indication: Possible seizure. Medications were reviewed. Technical: This is a digitally recorded electroencephalogram. The international 10-20 electrode placement system is used for scalp electrode placement. Eighteen channels of scalp EEG are recorded Another channel was used for for ECG. The data are stored digitally and reviewed in reformatted montages for optimal display. Background: 9 to 10 hertz alpha activity was seen. Maximal over the posterior head region. These activities are symmetric on both sides. They attenuated with eye opening. Small amount of beta activities are seen. Description: No focal slowing was seen. No seizure like activity was observed during this recording. Patient entered into periods of drowsiness and light sleep. No abnormality was seen. Impression: Normal awake and drowsy EEG. No focal slowing no seizure like activity was observed. Correlation with clinical findings is needed.
[2017-08-11] MEDS: Bacitracin OINT 15GM TOP SCH (16:22)
--- NOTE | 2017-08-11 18:36 | CP.PCM.PN ---
Subjective - Date & Time of Evaluation Date of Evaluation: 08/11/17 Time of Evaluation: 18:34 - Subjective Subjective: 66 yo M w/ pmh of htn, dm, CKD IIIB w/ severe diabetic nephropathy and nephrotic syndrom, recurrent pleural effusion; Patient eating about half of his food per nursing staff; had 2 large BM today even before being given kayexalate; denies shortness of breath on room air; Objective - Vital Signs/Intake and Output Vital Signs (last 24 hours): Temp Pulse Resp BP Pulse Ox 98.1 F 82 20 133/65 94 L 08/11/17 16:08 08/11/17 16:21 08/11/17 16:08 08/11/17 16:21 08/11/17 16:08 - Medications Medications: Current Medications Acetylcysteine (Acetylcysteine 20%) 2 ml INH RBID REPLACED BY [facility] Last Admin: 08/11/17 07:09 Dose: 2 ml Albuterol/Ipratropium (Duoneb 3 Mg/0.5 Mg (3 Ml) Ud) 3 ml INH RQ6 REPLACED BY [facility] Last Admin: 08/11/17 13:03 Dose: 3 ml Amlodipine Besylate (Norvasc) 5 mg PO Q12H REPLACED BY [facility] Last Admin: 08/11/17 10:13 Dose: 5 mg Bacitracin (Bacitracin Oint) 1 applic TOP DAILY REPLACED BY [facility] Last Admin: 08/11/17 16:22 Dose: 1 applic Bumetanide (Bumex) 1 mg PO BID REPLACED BY [facility] Last Admin: 08/11/17 16:23 Dose: 1 mg Calcium Acetate (Phoslo) 2,001 mg PO 0830,1200,1830 REPLACED BY [facility] Last Admin: 07/14/17 12:26 Dose: 2,001 mg Dextrose (Dextrose 50% Inj) 0 ml IV STAT PRN; Protocol PRN Reason: Hypoglycemia Protocol Last Admin: 08/04/17 11:36 Dose: 50 ml Dextrose (Glutose 15) 0 gm PO ONCE PRN; Protocol PRN Reason: Hypoglycemia Protocol Dextrose (Dextrose 50% Inj) 0 ml IV STAT PRN; Protocol PRN Reason: Hypoglycemia Protocol Dextrose (Glutose 15) 0 gm PO ONCE PRN; Protocol PRN Reason: Hypoglycemia Protocol Diltiazem HCl (Cardizem Cd) 360 mg PO DAILY REPLACED BY [facility] Last Admin: 08/11/17 10:09 Dose: 360 mg Epoetin Roel (Procrit) 10,000 unit SC FRI REPLACED BY [facility] Fluconazole (Diflucan) 200 mg PO DAILY THOMAS PRN Reason: Protocol Last Admin: 08/11/17 10:11 Dose: 200 mg Glucagon (Glucagen Diagnostic Kit) 0 mg IM STAT PRN; Protocol PRN Reason: Hypoglycemia Protocol Glucagon (Glucagen Diagnostic Kit) 0 mg IM STAT PRN; Protocol PRN Reason: Hypoglycemia Protocol Heparin Sodium (Porcine) (Heparin) 5,000 units SC Q12 THOMAS PRN Reason: Protocol Last Admin: 08/11/17 10:11 Dose: Not Given Hydralazine HCl (Apresoline) 25 mg PO TID REPLACED BY [facility] Last Admin: 08/11/17 16:21 Dose: 25 mg Cefepime HCl 1 gm/ Sodium (Chloride) 100 mls @ 100 mls/hr IVPB DAILY REPLACED BY [facility] PRN Reason: Protocol Last Admin: 08/11/17 10:13 Dose: 100 mls/hr Insulin Human Regular (Humulin R) 0 units SC ACHS REPLACED BY [facility] PRN Reason: Protocol Last Admin: 08/11/17 16:35 Dose: Not Given Lactic Acid (Lac-Hydrin 12% Lotion (225 G)) 1 applic TOP TID REPLACED BY [facility] Last Admin: 08/11/17 16:37 Dose: 1 applic Levetiracetam (Keppra) 500 mg PO Q12H REPLACED BY [facility] Last Admin: 08/11/17 10:06 Dose: 500 mg Levothyroxine Sodium (Synthroid) 50 mcg PO DAILY@0630 REPLACED BY [facility] Last Admin: 08/11/17 06:16 Dose: 50 mcg Lidocaine (Lidoderm) 2 ea TD DAILY REPLACED BY [facility] Last Admin: 08/11/17 10:53 Dose: Not Given Lisinopril (Zestril) 40 mg PO DAILY REPLACED BY [facility] Last Admin: 08/11/17 10:15 Dose: 40 mg Lorazepam (Ativan) 2 mg IVP Q6 PRN PRN Reason: Seizure activity Losartan Potassium (Cozaar) 25 mg PO DAILY REPLACED BY [facility] Last Admin: 08/11/17 10:10 Dose: 25 mg Mirtazapine (Remeron) 30 mg PO HS REPLACED BY [facility] Last Admin: 08/10/17 23:19 Dose: 30 mg Ondansetron HCl (Zofran Inj) 4 mg IVP Q6 PRN PRN Reason: Nausea/Vomiting Repaglinide (Prandin) 2 mg PO TIDAC REPLACED BY [facility] Last Admin: 08/11/17 16:38 Dose: 2 mg Spironolactone (Aldactone) 25 mg PO BID REPLACED BY [facility] Last Admin: 08/11/17 16:21 Dose: 25 mg Thiamine HCl (Vitamin B1 Tab) 100 mg PO DAILY REPLACED BY [facility] Last Admin: 08/11/17 10:16 Dose: 100 mg - Labs Labs: 08/10/17 10:30 08/11/17 06:10 PT 15.3 Seconds (9.8-13.1) H 07/18/17 05:30 INR 1.4 (0.9-1.2) H 07/18/17 05:30 APTT 34.2 Seconds (25.6-37.1) 07/18/17 05:30 - Constitutional Appears: Non-toxic, No Acute Distress - Eye Exam Eye Exam: absent: Scleral icterus - ENT Exam ENT Exam: Mucous Membranes Moist - Respiratory Exam Respiratory Exam: absent: Respiratory Distress Additional comments: decreased breath sounds at L base; - Cardiovascular Exam Cardiovascular Exam: RRR, +S1, +S2 - GI/Abdominal Exam GI & Abdominal Exam: Soft. absent: Distended, Tenderness - Extremities Exam Additional comments: mild edema of dependent area - Neurological Exam Neurological Exam: Alert, Awake - Psychiatric Exam Psychiatric exam: Normal Mood. absent: Agitated - Skin Skin Exam: Warm. absent: Cyanosis Assessment and Plan (1) Chronic kidney disease, stage 3 (moderate) Assessment & Plan: Stable renal function, actually improving further (from acute insults); mild hyperkalemia seen today, possibly from being over-diuresed; gave dose of kayexalate 15 g, will re-assess with labs tomorrow; for now, will NOT hold KEVIN blockade/aldactone as we are trying to combat proteinuria and keep patient as "dry" as possible in the setting of severe recurrent pleural effusions; Status: Chronic (2) Acute renal failure Status: Resolved (3) Nephrotic syndrome Assessment & Plan: see above; Status: Chronic (4) Pleural effusion Assessment & Plan: see above; Status: Chronic (5) Hypertensive CKD (chronic kidney disease) Assessment & Plan: BP control fluctuating, hydralazine 25 mg tid added most recently; continue current regimen including bumex 1 mg bid;; Status: Acute (6) Hypothermia Status: Acute (7) Altered mental status Status: Acute (8) SIRS (systemic inflammatory response syndrome) Status: Acute (9) Anemia Assessment & Plan: Hgb at goal; EPO dose reduced to just once weekly, 10,000 u, continue; Status: Chronic (10) Monoclonal gammopathy Status: Chronic (11) Hypernatremia Assessment & Plan: Mild, encourage more PO fluid intake; Status: Acute
[2017-08-12] MEDS: Albuterol-Ipratrop 3 mg / 0.5 (3 ml) UD INH SCH ×5 (01:00→20:31)
--- NOTE | 2017-08-12 01:16 | PN ---
ENDOCRINOLOGY FOLLOWUP NOTE DATE: LOCATION: In room 668 SUBJECTIVE: This is a 66-year-old male with recent uncontrolled type 2 diabetes, hypertension, currently being followed closely for metabolic management. His glycemic levels are fluctuating, but improved and the glucose values have ranged from 69 to 139 and 197 mg/dL. His latest chemistry showed a BUN of 39, sodium 147, potassium 5.4, chloride 112, CO2 of 26, glucose 91, and creatinine 1.8. So, at this time, we will continue the same low-dose oral hypoglycemic therapy with Prandin given as 2 mg t.i.d. before meals as ordered. We will titrate incrementally as indicated to optimize metabolic control. We will also continue the levothyroxine therapy as given. We will obtain serial chemistries and supplement accordingly as needed. We will follow. Bettina Mann MD
[2017-08-12 06:26] LABS: HEMOGLOBIN 12.1 g/dL (12.0-18.0); MEAN CELL VOLUME 89.1 fl (80.0-94.0); MEAN CORPUSCULAR HEMOGLOBIN 28.1 pg (27.0-31.0); MEAN CORPUSCULAR HGB CONC 31.6 g/dL (33.0-37.0); RBC 4.29 Mil/uL (4.40-5.90); RED CELL DISTRIBUTION WIDTH 17.7 % (11.5-14.5); WHITE BLOOD COUNT 6.5 K/uL (4.8-10.8)
[2017-08-12 06:39] LABS: CALCIUM 8.2 mg/dL (8.4-10.2)
--- NOTE | 2017-08-12 06:47 | CP.PCM.PN ---
Subjective - Date & Time of Evaluation Date of Evaluation: 08/12/17 Time of Evaluation: 06:47 - Subjective Subjective: Patient seen and examined bedside. The patient's blood sugars inconsistent, last glucose was 77. Seen speech and swallow. The patient is laying in bed, NAD. Patient breathing room air. The patient is awake and verbal this morning. Patient has pulmonary bed in use and sites of chest tubes healing appropriately. Objective - Vital Signs/Intake and Output Vital Signs (last 24 hours): Temp Pulse Resp BP Pulse Ox 97.8 F 76 19 159/70 H 95 08/12/17 00:35 08/12/17 00:35 08/12/17 00:35 08/12/17 00:35 08/12/17 00:35 - Medications Medications: Current Medications Acetylcysteine (Acetylcysteine 20%) 2 ml INH RBID [facility] Last Admin: 08/11/17 19:00 Dose: 2 ml Albuterol/Ipratropium (Duoneb 3 Mg/0.5 Mg (3 Ml) Ud) 3 ml INH RQ6 [facility] Last Admin: 08/12/17 01:00 Dose: 3 ml Amlodipine Besylate (Norvasc) 5 mg PO Q12H [facility] Last Admin: 08/11/17 20:56 Dose: 5 mg Bacitracin (Bacitracin Oint) 1 applic TOP DAILY [facility] Last Admin: 08/11/17 16:22 Dose: 1 applic Bumetanide (Bumex) 1 mg PO BID [facility] Last Admin: 08/11/17 16:23 Dose: 1 mg Calcium Acetate (Phoslo) 2,001 mg PO 0830,1200,1830 [facility] Last Admin: 07/14/17 12:26 Dose: 2,001 mg Dextrose (Dextrose 50% Inj) 0 ml IV STAT PRN; Protocol PRN Reason: Hypoglycemia Protocol Last Admin: 08/04/17 11:36 Dose: 50 ml Dextrose (Glutose 15) 0 gm PO ONCE PRN; Protocol PRN Reason: Hypoglycemia Protocol Dextrose (Dextrose 50% Inj) 0 ml IV STAT PRN; Protocol PRN Reason: Hypoglycemia Protocol Dextrose (Glutose 15) 0 gm PO ONCE PRN; Protocol PRN Reason: Hypoglycemia Protocol Diltiazem HCl (Cardizem Cd) 360 mg PO DAILY [facility] Last Admin: 08/11/17 10:09 Dose: 360 mg Epoetin Roel (Procrit) 10,000 unit SC FRI [facility] Fluconazole (Diflucan) 200 mg PO DAILY [facility] PRN Reason: Protocol Last Admin: 08/11/17 10:11 Dose: 200 mg Glucagon (Glucagen Diagnostic Kit) 0 mg IM STAT PRN; Protocol PRN Reason: Hypoglycemia Protocol Glucagon (Glucagen Diagnostic Kit) 0 mg IM STAT PRN; Protocol PRN Reason: Hypoglycemia Protocol Heparin Sodium (Porcine) (Heparin) 5,000 units SC Q12 THOMAS PRN Reason: Protocol Last Admin: 08/11/17 20:55 Dose: 5,000 units Hydralazine HCl (Apresoline) 25 mg PO TID [facility] Last Admin: 08/11/17 16:21 Dose: 25 mg Cefepime HCl 1 gm/ Sodium (Chloride) 100 mls @ 100 mls/hr IVPB DAILY [facility] PRN Reason: Protocol Last Admin: 08/11/17 10:13 Dose: 100 mls/hr Insulin Human Regular (Humulin R) 0 units SC ACHS [facility] PRN Reason: Protocol Last Admin: 08/11/17 22:31 Dose: Not Given Lactic Acid (Lac-Hydrin 12% Lotion (225 G)) 1 applic TOP TID [facility] Last Admin: 08/11/17 16:37 Dose: 1 applic Levetiracetam (Keppra) 500 mg PO Q12H [facility] Last Admin: 08/11/17 20:55 Dose: 500 mg Levothyroxine Sodium (Synthroid) 50 mcg PO DAILY@0630 [facility] Last Admin: 08/11/17 06:16 Dose: 50 mcg Lidocaine (Lidoderm) 2 ea TD DAILY [facility] Last Admin: 08/11/17 10:53 Dose: Not Given Lisinopril (Zestril) 40 mg PO DAILY [facility] Last Admin: 08/11/17 10:15 Dose: 40 mg Lorazepam (Ativan) 2 mg IVP Q6 PRN PRN Reason: Seizure activity Losartan Potassium (Cozaar) 25 mg PO DAILY [facility] Last Admin: 08/11/17 10:10 Dose: 25 mg Mirtazapine (Remeron) 30 mg PO HS [facility] Last Admin: 08/11/17 22:00 Dose: 30 mg Ondansetron HCl (Zofran Inj) 4 mg IVP Q6 PRN PRN Reason: Nausea/Vomiting Repaglinide (Prandin) 2 mg PO TIDAC [facility] Last Admin: 08/11/17 16:38 Dose: 2 mg Spironolactone (Aldactone) 25 mg PO BID [facility] Last Admin: 08/11/17 16:21 Dose: 25 mg Thiamine HCl (Vitamin B1 Tab) 100 mg PO DAILY [facility] Last Admin: 08/11/17 10:16 Dose: 100 mg - Labs Labs: 08/12/17 06:05 08/12/17 06:05 PT 15.3 Seconds (9.8-13.1) H 07/18/17 05:30 INR 1.4 (0.9-1.2) H 07/18/17 05:30 APTT 34.2 Seconds (25.6-37.1) 07/18/17 05:30 - Constitutional Appears: No Acute Distress - Head Exam Head Exam: ATRAUMATIC, NORMAL INSPECTION, NORMOCEPHALIC - Eye Exam Eye Exam: Normal appearance - ENT Exam ENT Exam: Mucous Membranes Dry - Neck Exam Neck Exam: absent: Tenderness - Respiratory Exam Respiratory Exam: Rales. absent: Rhonchi, Wheezes, Respiratory Distress Additional comments: mild crackles heard on lung bases, on room air - Cardiovascular Exam Cardiovascular Exam: REGULAR RHYTHM Additional comments: Systolic murmur at left mid-sternum - GI/Abdominal Exam GI & Abdominal Exam: Soft, Normal Bowel Sounds. absent: Distended, Tenderness - Extremities Exam Extremities Exam: absent: Calf Tenderness, Pedal Edema, Tenderness - Neurological Exam Neurological Exam: Alert, Awake - Skin Skin Exam: Dry Assessment and Plan - Assessment and Plan (Free Text) Assessment: 66 y/o man w/ pmh of HTN, DM, DM nephropathy, monoclonal gammopathy, recurrent L pleural effusion admitted for sepsis, Hypothermia, CHINTAN on CKD. Plan: 1) Acute respiratory failure secondary to recurrent pleural effusions. Most likely 2/2 nephrotic syndrome. - on room air, saturating 95% - bumetanide 1 mg PO daily - cefepime 1 gm IV daily day 9 - s/p therapuetic thoracocentesis w/ IR 08/04; drained 1.2 L - c/w Chest PT Q4H via bed programming - Suctioning - Pulmonary recommendations for mucomyst, bronchodilator - ID Consult, Dr Dolan, recommendations appreciated: c/w Fluconazole PO for 3wks more from (07/25/17) - CXR 08/08: stable left pleural effusion, minimal right pleural effusion, no pneumothorax 2) Hyperkalemia - K+ 5.2 - kayexelate 15 mg PO - f/u BMP - monitor for acute changes - continue diuresis as per nephro 3) Hypoglycemia - resolved - patient blood glucose 77 - patient taking PO but inconsistently - on correction scale - basal insulin held as per endocrine - monitor for acute changes 4) HTN due to CKD - preCHF: Echo 05/31/17 normal EF 60-65% - Continuing to improve but renal function gradually worsening as is expected as per Nephrology - Nephrology Consult, Dr Luz, recommendations appreciated: c/w ACEI/Cardiazem /Spironolactone, ARB, Hydralazine, bumex 5) Nephrotic Syndrome - biopsy 06/05/17- nodular glomerulosclerosis/ ~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 - Renal duplex: no renal vein thrombosis - CKD stage 4: f/u Nephrology recommendations - as per nephrology: Secondary to severe diabetic nephropathy with nephrotic sydrome; renal function stable lately after resolution of ATN; repeat 24 hr urine protein with patient on aggressive KEVIN blockade, BP control and other hemodynamicaly mediated anti-proteinuric measures; still with ~9g proteinuria; will continue same management for now; no role for immunosuppressive therapy 6) Anemia - remaining stable but no increase, EPO weekly on Friday's 7) Hypothyroidism - TSH 4.19 - c/w Synthroid 50 mcg PO daily 8) Prolactinemia - Prolactin 27.1 - improving, monitor for now 9) DM type 2 - prandin 2 mg PO TIDAC - DC'ed levemir to 5 units SC HS - Lispro 10) Seizure - c/w Keppra 500mg, PO, Q12H - Neurology Consult, Dr Nicholas, recommendations appreciated: c/w KARINA Whitfield held, signed off - re-consulting neurology for seizure history and AMS - CT head 08/08: shows no intracranial bleed, no acute pathology, chronic ischemic changes - EEG: Normal awake and drowsy EEG. No focal slowing no seizure like activity was observed 11) Skin breakdown - Skin tear: healing site on LEFT dorsum of hand, healing on lower back x2, - Sacral-Stage I: healing - c/w heal boots - c/w pressure off-loading - c/w lac-hydrin lotion 12) Depression - History of depression - on remeron 30 mg PO HS - psych re-consulted for decision making capacity, recommendations appreciated: patient does not have capacity to make medical decisions at this time 13) Deconditioning - PT/OT consulted and following patient 14) Diet - Modified Dysphagia with thin liquids - Consult Dietary: Recommend 60g Protein and modified dysphagia - on glucerna shake 8 oz - 3 day calorie count - speech and swallow re-consulted, recommendations appreciated - dietary recommendations appreciated 15) DVT prophylaxis - Heparin 5,000U, SC, Q12H 16) Disposition - transfer patient to [facility] [place] - contact social service manager regarding initiation for possible guardianship - psych consult, Dr. Bird, recommendations appreciated: deemed to not have capacity to make medical decisions at this time line: triple lumen catheter, left subclavian
[2017-08-12] MEDS: Levothyroxine 50 MCG TAB PO SCH (06:54)
[2017-08-12] MEDS: Acetylcysteine 20% Inhal Soln (4ml) INH SCH ×2 (08:31→20:31)
[2017-08-12] MEDS ORDERED: Sod Polystyrene Sulf 15 gm/60 ml Susp PO ONE (08:55)
[2017-08-12] MEDS: Bacitracin OINT 15GM TOP SCH (09:06)
[2017-08-12] MEDS: diltiaZEM 180 mg/24 Hours CD Cap PO SCH (09:07)
[2017-08-12] MEDS: Insulin Regular 100 units/ml SC SCH ×4 (09:08→22:03)
[2017-08-12] MEDS: Cefepime 1 GM in Sodium Chloride 0.9% 100 ML IVPB SCH (09:09)
[2017-08-12] MEDS: Lidocaine 5% Patch TD SCH (09:12)
--- NOTE | 2017-08-12 16:40 | CP.PCM.PCO ---
Physician Communication Note - Physician Communication Note Physician Communication Note: Additional Comments - Additional Comments Additional Comments: Sutures removed from chest tube and thoracocentesis sites on the right axilla. Suture removal approved by Dr. Gannon. Patient tolerated removal well. Covered w / bacitracin and dressed.
[2017-08-12] MEDS: Bacitracin 500 Units/gm Oint Foilpak UD TOP SCH (17:11)
--- NOTE | 2017-08-12 23:45 | PN ---
ENDOCRINOLOGY FOLLOWUP NOTE DATE: LOCATION: In room #668 SUBJECTIVE: This is a 66-year-old male with recent uncontrolled type 2 diabetes, currently being followed closely for metabolic management. His glucose levels are fluctuating but improved and the latest glucose levels have ranged from 77 to 122 and 151 mg/dL. His latest chemistry showed a BUN of 36, sodium 148, potassium 5.2, chloride 113, CO2 of 28, glucose 78, and creatinine 1.9. So, at this time, we will continue the same oral hypoglycemic drug therapy given as Prandin at 2 mg p.o. t.i.d. before meals as ordered. We will continue also the levothyroxine given as 50 mcg daily as ordered. We will obtain serial chemistries and supplement accordingly as needed. We will follow. Bettina Mann MD
[2017-08-13] MEDS: Albuterol-Ipratrop 3 mg / 0.5 (3 ml) UD INH SCH ×4 (01:04→19:35)
[2017-08-13 06:46] LABS: HEMOGLOBIN 11.6 g/dL (12.0-18.0); MEAN CORPUSCULAR HEMOGLOBIN 28.5 pg (27.0-31.0); RBC 4.07 Mil/uL (4.40-5.90); RED CELL DISTRIBUTION WIDTH 17.5 % (11.5-14.5); WHITE BLOOD COUNT 7.1 K/uL (4.8-10.8)
[2017-08-13] MEDS: Levothyroxine 50 MCG TAB PO SCH (06:46)
[2017-08-13] MEDS: Insulin Regular 100 units/ml SC SCH ×4 (07:00→21:38)
--- NOTE | 2017-08-13 07:50 | CP.PCM.PN ---
Subjective - Date & Time of Evaluation Date of Evaluation: 08/13/17 Time of Evaluation: 07:25 - Subjective Subjective: Patient seen and examined bedside. The patient's blood sugars inconsistent, last glucose was 71. The patient is laying in bed, NAD. Patient breathing room air. The patient is awake and verbal this morning. Patient has pulmonary bed in use and sites of chest tubes healing appropriately. Objective - Vital Signs/Intake and Output Vital Signs (last 24 hours): Temp Pulse Resp BP Pulse Ox 98 F 77 19 154/70 H 96 08/13/17 00:32 08/13/17 00:32 08/13/17 00:32 08/13/17 00:32 08/13/17 00:32 - Medications Medications: Current Medications Acetylcysteine (Acetylcysteine 20%) 2 ml INH RBID [facility] Last Admin: 08/12/17 20:31 Dose: 2 ml Albuterol/Ipratropium (Duoneb 3 Mg/0.5 Mg (3 Ml) Ud) 3 ml INH RQ6 [facility] Last Admin: 08/13/17 01:04 Dose: 3 ml Amlodipine Besylate (Norvasc) 5 mg PO Q12H [facility] Last Admin: 08/12/17 21:22 Dose: 5 mg Bacitracin (Bacitracin Oint) 1 applic TOP DAILY [facility] Last Admin: 08/12/17 09:06 Dose: 1 applic Bacitracin (Bacitracin) 1 ea TOP TID [facility] Last Admin: 08/12/17 17:11 Dose: 1 ea Bumetanide (Bumex) 1 mg PO BID [facility] Last Admin: 08/12/17 17:11 Dose: 1 mg Calcium Acetate (Phoslo) 2,001 mg PO 0830,1200,1830 [facility] Last Admin: 07/14/17 12:26 Dose: 2,001 mg Dextrose (Dextrose 50% Inj) 0 ml IV STAT PRN; Protocol PRN Reason: Hypoglycemia Protocol Last Admin: 08/04/17 11:36 Dose: 50 ml Dextrose (Glutose 15) 0 gm PO ONCE PRN; Protocol PRN Reason: Hypoglycemia Protocol Dextrose (Dextrose 50% Inj) 0 ml IV STAT PRN; Protocol PRN Reason: Hypoglycemia Protocol Dextrose (Glutose 15) 0 gm PO ONCE PRN; Protocol PRN Reason: Hypoglycemia Protocol Diltiazem HCl (Cardizem Cd) 360 mg PO DAILY [facility] Last Admin: 08/12/17 09:07 Dose: 360 mg Epoetin Roel (Procrit) 10,000 unit SC FRI [facility] Fluconazole (Diflucan) 200 mg PO DAILY [facility] PRN Reason: Protocol Last Admin: 08/12/17 09:06 Dose: 200 mg Glucagon (Glucagen Diagnostic Kit) 0 mg IM STAT PRN; Protocol PRN Reason: Hypoglycemia Protocol Glucagon (Glucagen Diagnostic Kit) 0 mg IM STAT PRN; Protocol PRN Reason: Hypoglycemia Protocol Heparin Sodium (Porcine) (Heparin) 5,000 units SC Q12 [facility] PRN Reason: Protocol Last Admin: 08/12/17 21:23 Dose: 5,000 units Hydralazine HCl (Apresoline) 25 mg PO TID [facility] Last Admin: 08/12/17 17:10 Dose: 25 mg Cefepime HCl 1 gm/ Sodium (Chloride) 100 mls @ 100 mls/hr IVPB DAILY [facility] PRN Reason: Protocol Last Admin: 08/12/17 09:09 Dose: 100 mls/hr Insulin Human Regular (Humulin R) 0 units SC ACHS [facility] PRN Reason: Protocol Last Admin: 08/13/17 07:00 Dose: Not Given Lactic Acid (Lac-Hydrin 12% Lotion (225 G)) 1 applic TOP TID [facility] Last Admin: 08/12/17 17:12 Dose: 1 applic Levetiracetam (Keppra) 500 mg PO Q12H [facility] Last Admin: 08/12/17 21:23 Dose: 500 mg Levothyroxine Sodium (Synthroid) 50 mcg PO DAILY@0630 [facility] Last Admin: 08/13/17 06:46 Dose: 50 mcg Lidocaine (Lidoderm) 2 ea TD DAILY [facility] Last Admin: 08/12/17 09:12 Dose: 2 ea Lisinopril (Zestril) 40 mg PO DAILY [facility] Last Admin: 08/12/17 09:15 Dose: 40 mg Lorazepam (Ativan) 2 mg IVP Q6 PRN PRN Reason: Seizure activity Losartan Potassium (Cozaar) 25 mg PO DAILY [facility] Last Admin: 08/12/17 09:16 Dose: 25 mg Mirtazapine (Remeron) 30 mg PO HS [facility] Last Admin: 08/12/17 21:24 Dose: 30 mg Ondansetron HCl (Zofran Inj) 4 mg IVP Q6 PRN PRN Reason: Nausea/Vomiting Repaglinide (Prandin) 2 mg PO TIDAC [facility] Last Admin: 08/12/17 17:11 Dose: 2 mg Spironolactone (Aldactone) 25 mg PO BID [facility] Last Admin: 08/12/17 17:10 Dose: 25 mg Thiamine HCl (Vitamin B1 Tab) 100 mg PO DAILY [facility] Last Admin: 08/12/17 09:15 Dose: 100 mg - Labs Labs: 08/13/17 05:50 08/13/17 05:50 PT 15.3 Seconds (9.8-13.1) H 07/18/17 05:30 INR 1.4 (0.9-1.2) H 07/18/17 05:30 APTT 34.2 Seconds (25.6-37.1) 07/18/17 05:30 - Constitutional Appears: No Acute Distress - Head Exam Head Exam: ATRAUMATIC, NORMAL INSPECTION, NORMOCEPHALIC - Eye Exam Eye Exam: Normal appearance - ENT Exam ENT Exam: Mucous Membranes Dry - Neck Exam Neck Exam: Full ROM. absent: Tenderness - Respiratory Exam Respiratory Exam: Rales. absent: Rhonchi, Wheezes, Respiratory Distress Additional comments: mild crackles heard on lung bases, on room air - Cardiovascular Exam Cardiovascular Exam: REGULAR RHYTHM Additional comments: Systolic murmur at left mid-sternum - GI/Abdominal Exam GI & Abdominal Exam: Soft, Normal Bowel Sounds. absent: Distended, Tenderness - Extremities Exam Extremities Exam: absent: Calf Tenderness, Pedal Edema, Tenderness - Neurological Exam Neurological Exam: Alert, Awake, Oriented x3 - Skin Skin Exam: Dry Assessment and Plan - Assessment and Plan (Free Text) Assessment: 66 y/o man w/ pmh of HTN, DM, DM nephropathy, monoclonal gammopathy, recurrent L pleural effusion admitted for sepsis, Hypothermia, CHINTAN on CKD. Plan: 1) Acute respiratory failure secondary to recurrent pleural effusions. Most likely 2/2 nephrotic syndrome. - on room air, saturating 95% - bumetanide 1 mg PO daily - cefepime 1 gm IV daily day 10 - s/p therapuetic thoracocentesis w/ IR 08/04; drained 1.2 L - c/w Chest PT Q4H via bed programming - Suctioning - Pulmonary recommendations for mucomyst, bronchodilator - ID Consult, Dr Dolan, recommendations appreciated: c/w Fluconazole PO for 3wks more from (07/25/17) ends 08/15/2017 - CXR 08/08: stable left pleural effusion, minimal right pleural effusion, no pneumothorax 2) Hyperkalemia - K+ 5.6 - kayexelate 15 mg PO today and every other day - EKG: sinus rhythm w/ 1st degree AV block, prolonged QTc, no peaked T-waves - f/u BMP - monitor for acute changes - continue diuresis as per nephro 3) Hypoglycemia - resolved - patient blood glucose 71 - patient taking PO but inconsistently - on correction scale - basal insulin held as per endocrine - monitor for acute changes 4) HTN due to CKD - preCHF: Echo 05/31/17 normal EF 60-65% - Continuing to improve but renal function gradually worsening as is expected as per Nephrology - Nephrology Consult, Dr Luz, recommendations appreciated: c/w ACEI/Cardiazem /Spironolactone, ARB, Hydralazine, bumex 5) Nephrotic Syndrome - biopsy 06/05/17- nodular glomerulosclerosis/ ~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 - Renal duplex: no renal vein thrombosis - CKD stage 4: f/u Nephrology recommendations - as per nephrology: Secondary to severe diabetic nephropathy with nephrotic sydrome; renal function stable lately after resolution of ATN; repeat 24 hr urine protein with patient on aggressive KEVIN blockade, BP control and other hemodynamicaly mediated anti-proteinuric measures; still with ~9g proteinuria; will continue same management for now; no role for immunosuppressive therapy 6) Anemia - remaining stable but no increase, EPO weekly on Friday's 7) Hypothyroidism - TSH 4.19 - c/w Synthroid 50 mcg PO daily 8) Prolactinemia - Prolactin 27.1 - improving, monitor for now 9) DM type 2 - prandin 2 mg PO TIDAC - DC'ed levemir to 5 units SC HS - Lispro 10) Seizure - c/w Keppra 500mg, PO, Q12H - Neurology Consult, Dr Nicholas, recommendations appreciated: c/w KARINA Whitfield held, signed off - re-consulting neurology for seizure history and AMS - CT head 08/08: shows no intracranial bleed, no acute pathology, chronic ischemic changes - EEG: Normal awake and drowsy EEG. No focal slowing no seizure like activity was observed 11) Skin breakdown - Skin tear: healing site on LEFT dorsum of hand, healing on lower back x2, - Sacral-Stage I: healing - c/w heal boots - c/w pressure off-loading - c/w lac-hydrin lotion 12) Depression - History of depression - on remeron 30 mg PO HS - psych re-consulted for decision making capacity, recommendations appreciated: patient does not have capacity to make medical decisions at this time 13) Deconditioning - PT/OT consulted and following patient 14) Diet - Modified Dysphagia with thin liquids - Consult Dietary: Recommend 60g Protein and modified dysphagia - on glucerna shake 8 oz - 3 day calorie count - speech and swallow re-consulted, recommendations appreciated - dietary recommendations appreciated 15) DVT prophylaxis - Heparin 5,000U, SC, Q12H 16) Disposition - transfer patient to [facility] - contact licensed social worker regarding initiation for possible guardianship - psych consult, Dr. Bird, recommendations appreciated: deemed to not have capacity to make medical decisions at this time line: triple lumen catheter, left subclavian
[2017-08-13] MEDS: Acetylcysteine 20% Inhal Soln (4ml) INH SCH ×2 (08:00→19:35)
[2017-08-13 08:48] LABS: CALCIUM 8.3 mg/dL (8.4-10.2)
[2017-08-13] MEDS: diltiaZEM 180 mg/24 Hours CD Cap PO SCH (09:00)
[2017-08-13] MEDS: Lidocaine 5% Patch TD SCH (09:03)
[2017-08-13] MEDS: Cefepime 1 GM in Sodium Chloride 0.9% 100 ML IVPB SCH (09:03)
[2017-08-13] MEDS ORDERED: Sod Polystyrene Sulf 15 gm/60 ml Susp PO ONE (10:01)
[2017-08-13] MEDS ORDERED: methylPREDNISolone 60 MG in Sodium Chloride 0.9% 50 ML IVPB ONE (11:22)
--- NOTE | 2017-08-13 11:33 | CP.PCM.CON ---
History of Present Illness - History of Present Illness History of Present Illness: 66 y/o homeless male admitted with respiratory distress Consult called for ? CHF Pt denies chest pain SOB/CRUZ PMH: Hypertension Pleural Effusions Nephrotic Syndrome Anemia DM II Past Patient History - Infectious Disease Hx of Infectious Diseases: None - Tetanus Immunizations Tetanus Immunization: Unknown - Past Medical History & Family History Past Medical History?: Yes - Past Social History Alcohol: None Drugs: Denies - CARDIAC Hx Cardiac Disorders: Yes Hx Hypertension: Yes - PULMONARY Hx Chronic Obstructive Pulmonary Disease (COPD): No - NEUROLOGICAL HX Cerebrovascular Accident: No - HEENT Hx HEENT Problems: No - RENAL Hx Renal Failure: Yes (CKD stage 3, nephrotic syndrome) - ENDOCRINE/METABOLIC Hx Diabetes Mellitus Type 2: Yes - HEMATOLOGICAL/ONCOLOGICAL Hx Anemia: Yes Hx Human Immunodeficiency Virus (HIV): No Hx Sickle Cell Disease: No - INTEGUMENTARY Hx Dermatological Problems: No - MUSCULOSKELETAL/RHEUMATOLOGICAL Hx Arthritis: No Hx Rheumatoid Arthritis: No - GASTROINTESTINAL Hx Crohn's Disease: No Hx Diverticulitis: No Hx Gall Bladder Disease: No Hx Gastritis: No Hx Pancreatitis: No - GENITOURINARY/GYNECOLOGICAL Hx Genitourinary Disorders: No - PSYCHIATRIC Hx Anxiety: Yes Hx Bipolar Disorder: Yes Hx Depression: Yes Hx Paranoia: No Hx Post Traumatic Stress Disorder: No Hx Schizophrenia: No - SURGICAL HISTORY Hx Surgeries: No - ANESTHESIA Hx Anesthesia: Yes Hx Anesthesia Reactions: No Hx Malignant Hyperthermia: No Meds Allergies/Adverse Reactions: Allergies Allergy/AdvReac Type Severity Reaction Status Date / Time No Known Allergies Allergy Verified 05/21/17 16:02 - Medications Medications: Current Medications Acetylcysteine (Acetylcysteine 20%) 2 ml INH RBID [facility]PL[facility] Last Admin: 08/13/17 08:00 Dose: 2 ml Albuterol/Ipratropium (Duoneb 3 Mg/0.5 Mg (3 Ml) Ud) 3 ml INH RQ6 [facility] Last Admin: 08/13/17 07:59 Dose: 3 ml Amlodipine Besylate (Norvasc) 5 mg PO Q12H [facility] Last Admin: 08/13/17 09:03 Dose: 5 mg Bacitracin (Bacitracin Oint) 1 applic TOP DAILY [facility] Last Admin: 08/12/17 09:06 Dose: 1 applic Bacitracin (Bacitracin) 1 ea TOP TID [facility] Last Admin: 08/12/17 17:11 Dose: 1 ea Bumetanide (Bumex) 1 mg PO BID [facility] Last Admin: 08/13/17 09:00 Dose: 1 mg Calcium Acetate (Phoslo) 2,001 mg PO 0830,1200,1830 [facility] Last Admin: 07/14/17 12:26 Dose: 2,001 mg Dextrose (Dextrose 50% Inj) 0 ml IV STAT PRN; Protocol PRN Reason: Hypoglycemia Protocol Last Admin: 08/04/17 11:36 Dose: 50 ml Dextrose (Glutose 15) 0 gm PO ONCE PRN; Protocol PRN Reason: Hypoglycemia Protocol Dextrose (Dextrose 50% Inj) 0 ml IV STAT PRN; Protocol PRN Reason: Hypoglycemia Protocol Dextrose (Glutose 15) 0 gm PO ONCE PRN; Protocol PRN Reason: Hypoglycemia Protocol Diltiazem HCl (Cardizem Cd) 360 mg PO DAILY [facility] Last Admin: 08/13/17 09:00 Dose: 360 mg Epoetin Roel (Procrit) 10,000 unit SC FRI [facility] Fluconazole (Diflucan) 200 mg PO DAILY [facility] PRN Reason: Protocol Last Admin: 08/13/17 09:02 Dose: 200 mg Glucagon (Glucagen Diagnostic Kit) 0 mg IM STAT PRN; Protocol PRN Reason: Hypoglycemia Protocol Glucagon (Glucagen Diagnostic Kit) 0 mg IM STAT PRN; Protocol PRN Reason: Hypoglycemia Protocol Heparin Sodium (Porcine) (Heparin) 5,000 units SC Q12 [facility] PRN Reason: Protocol Last Admin: 08/13/17 09:04 Dose: 5,000 units Hydralazine HCl (Apresoline) 25 mg PO TID [facility] Last Admin: 08/13/17 09:01 Dose: 25 mg Cefepime HCl 1 gm/ Sodium (Chloride) 100 mls @ 100 mls/hr IVPB DAILY [facility] PRN Reason: Protocol Last Admin: 08/13/17 09:03 Dose: 100 mls/hr Insulin Human Regular (Humulin R) 0 units SC ACHS [facility] PRN Reason: Protocol Last Admin: 08/13/17 07:00 Dose: Not Given Lactic Acid (Lac-Hydrin 12% Lotion (225 G)) 1 applic TOP TID [facility] Last Admin: 08/13/17 09:03 Dose: 1 applic Levetiracetam (Keppra) 500 mg PO Q12H [facility] Last Admin: 08/13/17 09:02 Dose: 500 mg Levothyroxine Sodium (Synthroid) 50 mcg PO DAILY@0630 [facility] Last Admin: 08/13/17 06:46 Dose: 50 mcg Lidocaine (Lidoderm) 2 ea TD DAILY [facility] Last Admin: 08/13/17 09:03 Dose: 2 ea Lisinopril (Zestril) 40 mg PO DAILY [facility] Last Admin: 08/13/17 09:01 Dose: 40 mg Lorazepam (Ativan) 2 mg IVP Q6 PRN PRN Reason: Seizure activity Losartan Potassium (Cozaar) 25 mg PO DAILY [facility] Last Admin: 08/13/17 09:02 Dose: 25 mg Methylprednisolone (Solu-Medrol) 60 mg IV ONCE ONE Stop: 08/13/17 11:31 Mirtazapine (Remeron) 30 mg PO HS [facility] Last Admin: 08/12/17 21:24 Dose: 30 mg Ondansetron HCl (Zofran Inj) 4 mg IVP Q6 PRN PRN Reason: Nausea/Vomiting Repaglinide (Prandin) 2 mg PO TIDAC [facility] Last Admin: 08/13/17 09:01 Dose: 2 mg Spironolactone (Aldactone) 25 mg PO BID [facility] Last Admin: 08/13/17 09:02 Dose: 25 mg Thiamine HCl (Vitamin B1 Tab) 100 mg PO DAILY [facility] Last Admin: 08/13/17 09:02 Dose: 100 mg Physical Exam - Constitutional Appears: Unkempt, Older Than Stated Age - Respiratory Exam Respiratory Exam: Decreased Breath Sounds, NORMAL BREATHING PATTERN Additional comments: No rales or rhonchi - Cardiovascular Exam Cardiovascular Exam: REGULAR RHYTHM Results - Vital Signs Recent Vital Signs: Last Vital Signs Temp 98.3 F 08/13/17 08:29 Pulse 83 08/13/17 09:03 Resp 20 08/13/17 08:29 BP 151/79 H 08/13/17 09:03 Pulse Ox 100 08/13/17 08:29 - Labs Result Diagrams: 08/13/17 05:50 08/13/17 05:50 Labs: Laboratory Results - last 24 hr 08/12/17 08/12/17 08/12/17 11:31 16:29 21:50 WBC RBC Hgb Hct MCV MCH MCHC RDW Plt Count Sodium Potassium Chloride Carbon Dioxide Anion Gap BUN Creatinine Est GFR ( Amer) Est GFR (Non-Af Amer) POC Glucose (mg/dL) 151 H 126 H 203 H Random Glucose Calcium Phosphorus Magnesium 08/13/17 08/13/17 08/13/17 05:50 05:50 05:56 WBC 7.1 RBC 4.07 L Hgb 11.6 L Hct 36.2 MCV 89.0 MCH 28.5 MCHC 32.0 L RDW 17.5 H Plt Count 318 Sodium 146 Potassium 5.6 H Chloride 113 H Carbon Dioxide 26 Anion Gap 13 BUN 33 H Creatinine 1.8 H Est GFR ( Amer) 46 Est GFR (Non-Af Amer) 38 POC Glucose (mg/dL) 71 Random Glucose 77 Calcium 8.3 L Phosphorus 4.6 H Magnesium 2.2 08/13/17 11:06 WBC RBC Hgb Hct MCV MCH MCHC RDW Plt Count Sodium Potassium Chloride Carbon Dioxide Anion Gap BUN Creatinine Est GFR ( Amer) Est GFR (Non-Af Amer) POC Glucose (mg/dL) 134 H Random Glucose Calcium Phosphorus Magnesium Assessment & Plan (1) Altered mental status Status: Acute Priority: High (2) DM2 (diabetes mellitus, type 2) Status: Acute (3) MGUS (monoclonal gammopathy of unknown significance) Status: Acute (4) Pleural effusion Status: Acute (5) Anemia of renal disease Status: Acute (6) Hypertensive CKD (chronic kidney disease) Status: Acute (7) Diabetes mellitus type 2 in nonobese Status: Chronic (8) Nephrotic syndrome Status: Chronic Priority: High
[2017-08-13] MEDS: Bacitracin 500 Units/gm Oint Foilpak UD TOP SCH ×3 (11:42→16:36)
[2017-08-13] MEDS: Bacitracin OINT 15GM TOP SCH (11:43)
--- NOTE | 2017-08-13 14:23 | CARD ---
APPROVED REPORT EKG Measurement Heart [id number] ID [id number] <Conclusion> Sinus rhythm with 1st degree AV block with fusion complexes Possible Left atrial enlargement Low voltage QRS Prolonged QT Abnormal ECG
--- NOTE | 2017-08-13 19:09 | CP.PCM.PN ---
Subjective - Date & Time of Evaluation Date of Evaluation: 08/13/17 Time of Evaluation: 19:00 - Subjective Subjective: Patient denies shortness of breath; tolerating diet; Objective - Vital Signs/Intake and Output Vital Signs (last 24 hours): Temp Pulse Resp BP Pulse Ox 97.8 F 81 20 141/72 94 L 08/13/17 16:10 08/13/17 16:36 08/13/17 16:10 08/13/17 16:36 08/13/17 16:10 - Medications Medications: Current Medications Acetylcysteine (Acetylcysteine 20%) 2 ml INH RBID [facility] Last Admin: 08/13/17 08:00 Dose: 2 ml Albuterol/Ipratropium (Duoneb 3 Mg/0.5 Mg (3 Ml) Ud) 3 ml INH RQ6 [facility] Last Admin: 08/13/17 13:04 Dose: 3 ml Amlodipine Besylate (Norvasc) 5 mg PO Q12H [facility] Last Admin: 08/13/17 09:03 Dose: 5 mg Bacitracin (Bacitracin Oint) 1 applic TOP DAILY [facility] Last Admin: 08/13/17 11:43 Dose: 1 applic Bacitracin (Bacitracin) 1 ea TOP TID [facility] Last Admin: 08/13/17 16:36 Dose: 1 ea Bumetanide (Bumex) 1 mg PO BID [facility] Last Admin: 08/13/17 16:36 Dose: 1 mg Calcium Acetate (Phoslo) 2,001 mg PO 0830,1200,1830 [facility] Last Admin: 07/14/17 12:26 Dose: 2,001 mg Dextrose (Dextrose 50% Inj) 0 ml IV STAT PRN; Protocol PRN Reason: Hypoglycemia Protocol Last Admin: 08/04/17 11:36 Dose: 50 ml Dextrose (Glutose 15) 0 gm PO ONCE PRN; Protocol PRN Reason: Hypoglycemia Protocol Dextrose (Dextrose 50% Inj) 0 ml IV STAT PRN; Protocol PRN Reason: Hypoglycemia Protocol Dextrose (Glutose 15) 0 gm PO ONCE PRN; Protocol PRN Reason: Hypoglycemia Protocol Diltiazem HCl (Cardizem Cd) 360 mg PO DAILY [facility] Last Admin: 08/13/17 09:00 Dose: 360 mg Epoetin Roel (Procrit) 10,000 unit SC FRI [facility] Fluconazole (Diflucan) 200 mg PO DAILY [facility] PRN Reason: Protocol Last Admin: 08/13/17 09:02 Dose: 200 mg Glucagon (Glucagen Diagnostic Kit) 0 mg IM STAT PRN; Protocol PRN Reason: Hypoglycemia Protocol Glucagon (Glucagen Diagnostic Kit) 0 mg IM STAT PRN; Protocol PRN Reason: Hypoglycemia Protocol Heparin Sodium (Porcine) (Heparin) 5,000 units SC Q12 [facility] PRN Reason: Protocol Last Admin: 08/13/17 12:19 Dose: Not Given Hydralazine HCl (Apresoline) 25 mg PO TID [facility] Last Admin: 08/13/17 16:36 Dose: 25 mg Cefepime HCl 1 gm/ Sodium (Chloride) 100 mls @ 100 mls/hr IVPB DAILY [facility] PRN Reason: Protocol Last Admin: 08/13/17 09:03 Dose: 100 mls/hr Insulin Human Regular (Humulin R) 0 units SC ACHS [facility] PRN Reason: Protocol Last Admin: 08/13/17 11:44 Dose: Not Given Lactic Acid (Lac-Hydrin 12% Lotion (225 G)) 1 applic TOP TID [facility] Last Admin: 08/13/17 16:37 Dose: 1 applic Levetiracetam (Keppra) 500 mg PO Q12H [facility] Last Admin: 08/13/17 09:02 Dose: 500 mg Levothyroxine Sodium (Synthroid) 50 mcg PO DAILY@0630 [facility] Last Admin: 08/13/17 06:46 Dose: 50 mcg Lidocaine (Lidoderm) 2 ea TD DAILY [facility] Last Admin: 08/13/17 09:03 Dose: 2 ea Lisinopril (Zestril) 40 mg PO DAILY [facility] Last Admin: 08/13/17 09:01 Dose: 40 mg Lorazepam (Ativan) 2 mg IVP Q6 PRN PRN Reason: Seizure activity Losartan Potassium (Cozaar) 25 mg PO DAILY [facility] Last Admin: 08/13/17 09:02 Dose: 25 mg Mirtazapine (Remeron) 30 mg PO HS [facility] Last Admin: 08/12/17 21:24 Dose: 30 mg Ondansetron HCl (Zofran Inj) 4 mg IVP Q6 PRN PRN Reason: Nausea/Vomiting Repaglinide (Prandin) 2 mg PO TIDAC [facility] Last Admin: 08/13/17 16:37 Dose: 2 mg Spironolactone (Aldactone) 25 mg PO BID [facility] Last Admin: 08/13/17 16:38 Dose: 25 mg Thiamine HCl (Vitamin B1 Tab) 100 mg PO DAILY [facility] Last Admin: 08/13/17 09:02 Dose: 100 mg - Labs Labs: 08/13/17 05:50 08/13/17 05:50 PT 15.3 Seconds (9.8-13.1) H 07/18/17 05:30 INR 1.4 (0.9-1.2) H 07/18/17 05:30 APTT 34.2 Seconds (25.6-37.1) 07/18/17 05:30 - Constitutional Appears: Non-toxic, No Acute Distress - Eye Exam Eye Exam: Normal appearance. absent: Scleral icterus - ENT Exam ENT Exam: Mucous Membranes Moist - Respiratory Exam Respiratory Exam: Clear to Ausculation Bilateral. absent: Respiratory Distress - Cardiovascular Exam Cardiovascular Exam: RRR, +S1, +S2 - GI/Abdominal Exam GI & Abdominal Exam: Soft. absent: Distended, Tenderness - Exam Additional comments: no bladder distention; - Extremities Exam Additional comments: no leg edema - Neurological Exam Neurological Exam: Alert, Awake - Psychiatric Exam Psychiatric exam: Normal Mood. absent: Agitated - Skin Skin Exam: Warm. absent: Cyanosis Assessment and Plan (1) Chronic kidney disease, stage 3 (moderate) Assessment & Plan: Stable renal function; continue to maximize KEVIN blockade and anti-proteinuric measures; Status: Chronic (2) Acute renal failure Status: Resolved (3) Nephrotic syndrome Status: Chronic (4) Pleural effusion Status: Chronic (5) Hypertensive CKD (chronic kidney disease) Assessment & Plan: BP overall better controlled; continue current regimen; Status: Acute (6) Hypothermia Status: Acute (7) Altered mental status Status: Acute (8) SIRS (systemic inflammatory response syndrome) Status: Acute (9) Anemia Assessment & Plan: Hgb stable, continue weekly EPO; Status: Chronic (10) Monoclonal gammopathy Status: Chronic (11) Hypernatremia Status: Acute (12) Hyperkalemia Assessment & Plan: Was expected to occur eventually as patient is on aggressive KEVIN blockade, will continue same; kayexalate 15 g given today, will re-assess with labs tomorrow; Status: Acute
--- NOTE | 2017-08-13 19:13 | PN ---
ENDOCRINOLOGY FOLLOWUP NOTE DATE: LOCATION: In room 668 SUBJECTIVE: This is a 66-year-old male with recent acute respiratory failure, now being followed closely for metabolic management. His oral intake remains quite variable and suboptimal at this time and the latest glucose levels have ranged from 71 to 134 mg/dL. The latest chemistry showed a BUN of 33, sodium 146, potassium 5.6, chloride 113, CO2 of 26, glucose 77, and creatinine 1.8. So, at this time, we will continue the low-dose oral hypoglycemic drug therapy as given with Prandin given as 2 mg p.o. t.i.d. before meals as ordered. We will titrate incrementally as indicated to optimize metabolic control. We will follow. Bettina Mann MD
[2017-08-14] MEDS: Albuterol-Ipratrop 3 mg / 0.5 (3 ml) UD INH SCH ×4 (02:45→19:56)
[2017-08-14] MEDS: Levothyroxine 50 MCG TAB PO SCH (05:30)
[2017-08-14 06:32] LABS: CALCIUM 8.2 mg/dL (8.4-10.2)
[2017-08-14 06:35] LABS: HEMOGLOBIN 11.3 g/dL (12.0-18.0); MEAN CELL VOLUME 88.9 fl (80.0-94.0); MEAN CORPUSCULAR HEMOGLOBIN 28.2 pg (27.0-31.0); MEAN CORPUSCULAR HGB CONC 31.8 g/dL (33.0-37.0); RBC 3.98 Mil/uL (4.40-5.90); RED CELL DISTRIBUTION WIDTH 17.2 % (11.5-14.5); WHITE BLOOD COUNT 7.9 K/uL (4.8-10.8)
--- NOTE | 2017-08-14 06:56 | CP.PCM.PN ---
Subjective - Date & Time of Evaluation Date of Evaluation: 08/14/17 Time of Evaluation: 06:56 - Subjective Subjective: Patient seen and examined bedside. The patient's blood sugars inconsistent, last glucose was 261. The patient is laying in bed, NAD. Patient breathing room air. The patient is awake and verbal this morning. Patient has pulmonary bed in use and sites of chest tubes healing appropriately. Objective - Vital Signs/Intake and Output Vital Signs (last 24 hours): Temp Pulse Resp BP Pulse Ox 98 F 79 19 145/71 96 08/14/17 00:07 08/14/17 00:07 08/14/17 00:07 08/14/17 00:07 08/14/17 00:07 - Medications Medications: Current Medications Acetylcysteine (Acetylcysteine 20%) 2 ml INH RBID [facility] Last Admin: 08/13/17 19:35 Dose: 2 ml Albuterol/Ipratropium (Duoneb 3 Mg/0.5 Mg (3 Ml) Ud) 3 ml INH RQ6 [facility] Last Admin: 08/14/17 02:45 Dose: Not Given Amlodipine Besylate (Norvasc) 5 mg PO Q12H [facility] Last Admin: 08/13/17 21:01 Dose: 5 mg Bacitracin (Bacitracin Oint) 1 applic TOP DAILY [facility] Last Admin: 08/13/17 11:43 Dose: 1 applic Bacitracin (Bacitracin) 1 ea TOP TID [facility] Last Admin: 08/13/17 16:36 Dose: 1 ea Bumetanide (Bumex) 1 mg PO BID [facility] Last Admin: 08/13/17 16:36 Dose: 1 mg Calcium Acetate (Phoslo) 2,001 mg PO 0830,1200,1830 [facility] Last Admin: 07/14/17 12:26 Dose: 2,001 mg Dextrose (Dextrose 50% Inj) 0 ml IV STAT PRN; Protocol PRN Reason: Hypoglycemia Protocol Last Admin: 08/04/17 11:36 Dose: 50 ml Dextrose (Glutose 15) 0 gm PO ONCE PRN; Protocol PRN Reason: Hypoglycemia Protocol Dextrose (Dextrose 50% Inj) 0 ml IV STAT PRN; Protocol PRN Reason: Hypoglycemia Protocol Dextrose (Glutose 15) 0 gm PO ONCE PRN; Protocol PRN Reason: Hypoglycemia Protocol Diltiazem HCl (Cardizem Cd) 360 mg PO DAILY [facility] Last Admin: 08/13/17 09:00 Dose: 360 mg Epoetin Roel (Procrit) 10,000 unit SC FRI [facility] Fluconazole (Diflucan) 200 mg PO DAILY [facility] PRN Reason: Protocol Last Admin: 08/13/17 09:02 Dose: 200 mg Glucagon (Glucagen Diagnostic Kit) 0 mg IM STAT PRN; Protocol PRN Reason: Hypoglycemia Protocol Glucagon (Glucagen Diagnostic Kit) 0 mg IM STAT PRN; Protocol PRN Reason: Hypoglycemia Protocol Heparin Sodium (Porcine) (Heparin) 5,000 units SC Q12 [facility] PRN Reason: Protocol Last Admin: 08/13/17 21:04 Dose: Not Given Hydralazine HCl (Apresoline) 25 mg PO TID [facility] Last Admin: 08/13/17 16:36 Dose: 25 mg Cefepime HCl 1 gm/ Sodium (Chloride) 100 mls @ 100 mls/hr IVPB DAILY [facility] PRN Reason: Protocol Last Admin: 08/13/17 09:03 Dose: 100 mls/hr Insulin Human Regular (Humulin R) 0 units SC ACHS [facility] PRN Reason: Protocol Last Admin: 08/13/17 21:38 Dose: Not Given Lactic Acid (Lac-Hydrin 12% Lotion (225 G)) 1 applic TOP TID [facility] Last Admin: 08/13/17 16:37 Dose: 1 applic Levetiracetam (Keppra) 500 mg PO Q12H [facility] Last Admin: 08/13/17 21:01 Dose: 500 mg Levothyroxine Sodium (Synthroid) 50 mcg PO DAILY@0630 [facility] Last Admin: 08/14/17 05:30 Dose: 50 mcg Lidocaine (Lidoderm) 2 ea TD DAILY [facility] Last Admin: 08/13/17 09:03 Dose: 2 ea Lisinopril (Zestril) 40 mg PO DAILY [facility] Last Admin: 08/13/17 09:01 Dose: 40 mg Lorazepam (Ativan) 2 mg IVP Q6 PRN PRN Reason: Seizure activity Losartan Potassium (Cozaar) 25 mg PO DAILY [facility] Last Admin: 08/13/17 09:02 Dose: 25 mg Mirtazapine (Remeron) 30 mg PO HS [facility] Last Admin: 08/13/17 21:01 Dose: 30 mg Ondansetron HCl (Zofran Inj) 4 mg IVP Q6 PRN PRN Reason: Nausea/Vomiting Repaglinide (Prandin) 2 mg PO TIDAC [facility] Last Admin: 08/13/17 16:37 Dose: 2 mg Spironolactone (Aldactone) 25 mg PO BID [facility] Last Admin: 08/13/17 16:38 Dose: 25 mg Thiamine HCl (Vitamin B1 Tab) 100 mg PO DAILY [facility] Last Admin: 08/13/17 09:02 Dose: 100 mg - Labs Labs: 08/13/17 05:50 08/14/17 05:40 PT 15.3 Seconds (9.8-13.1) H 07/18/17 05:30 INR 1.4 (0.9-1.2) H 07/18/17 05:30 APTT 34.2 Seconds (25.6-37.1) 07/18/17 05:30 - Constitutional Appears: No Acute Distress - Head Exam Head Exam: ATRAUMATIC, NORMAL INSPECTION, NORMOCEPHALIC - Eye Exam Eye Exam: Normal appearance - ENT Exam ENT Exam: Mucous Membranes Dry - Neck Exam Neck Exam: Full ROM. absent: Tenderness - Respiratory Exam Respiratory Exam: Rales. absent: Rhonchi, Wheezes, Respiratory Distress Additional comments: mild crackles heard on lung bases, on room air - Cardiovascular Exam Cardiovascular Exam: REGULAR RHYTHM Additional comments: Systolic murmur at left mid-sternum - GI/Abdominal Exam GI & Abdominal Exam: Soft, Normal Bowel Sounds. absent: Distended, Tenderness - Extremities Exam Extremities Exam: absent: Calf Tenderness, Pedal Edema, Tenderness - Neurological Exam Neurological Exam: Alert, Awake, Oriented x3 - Skin Skin Exam: Dry Assessment and Plan - Assessment and Plan (Free Text) Assessment: 66 y/o man w/ pmh of HTN, DM, DM nephropathy, monoclonal gammopathy, recurrent L pleural effusion admitted for sepsis, Hypothermia, CHINTAN on CKD. Plan: 1) Acute respiratory failure secondary to recurrent pleural effusions. Most likely 2/2 nephrotic syndrome. - on room air, saturating 95% - bumetanide 1 mg PO daily - cefepime 1 gm IV daily day 11 - s/p therapuetic thoracocentesis w/ IR 08/04; drained 1.2 L - c/w Chest PT Q4H via bed programming - Suctioning - Pulmonary recommendations for mucomyst, bronchodilator - ID Consult, Dr Dolan, recommendations appreciated: c/w Fluconazole PO for 3wks more from (07/25/17) ends 08/15/2017 - CXR 08/08: stable left pleural effusion, minimal right pleural effusion, no pneumothorax - f/u CXR 2) Hyperkalemia - K+ 5.7 - kayexelate 30 mg PO today - fludrocortisone 0.1 mg PO once given today - EKG: sinus rhythm w/ 1st degree AV block, prolonged QTc, no peaked T-waves - f/u BMP - monitor for acute changes - continue diuresis as per nephro 3) Hypoglycemia - resolved - patient blood glucose 274 - patient taking PO but inconsistently - on correction scale - basal insulin held as per endocrine - monitor for acute changes 4) HTN due to CKD - preCHF: Echo 05/31/17 normal EF 60-65% - Continuing to improve but renal function gradually worsening as is expected as per Nephrology - Nephrology Consult, Dr Luz, recommendations appreciated: c/w ACEI/Cardiazem /Spironolactone, ARB, Hydralazine, bumex 5) Nephrotic Syndrome - biopsy 06/05/17- nodular glomerulosclerosis/ ~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 - Renal duplex: no renal vein thrombosis - CKD stage 4: f/u Nephrology recommendations - as per nephrology: Secondary to severe diabetic nephropathy with nephrotic sydrome; renal function stable lately after resolution of ATN; repeat 24 hr urine protein with patient on aggressive KEVIN blockade, BP control and other hemodynamicaly mediated anti-proteinuric measures; still with ~9g proteinuria; will continue same management for now; no role for immunosuppressive therapy 6) Anemia - remaining stable but no increase, EPO weekly on Friday's 7) Hypothyroidism - TSH 4.19 - c/w Synthroid 50 mcg PO daily 8) Prolactinemia - Prolactin 27.1 - improving, monitor for now 9) DM type 2 - prandin 2 mg PO TIDAC - DC'ed levemir to 5 units SC HS - Lispro - blood glucose elevated, taking PO more, started on IV corticosteroids for pain 10) Seizure - c/w Keppra 500mg, PO, Q12H - Neurology Consult, Dr Nicholas, recommendations appreciated: c/w Roseann, KARINA held, signed off - re-consulting neurology for seizure history and AMS - CT head 08/08: shows no intracranial bleed, no acute pathology, chronic ischemic changes - EEG: Normal awake and drowsy EEG. No focal slowing no seizure like activity was observed 11) Skin breakdown - Skin tear: healing site on LEFT dorsum of hand, healing on lower back x2, - Sacral-Stage I: healing - no heal skin ulcers - c/w heal boots - c/w pressure off-loading - c/w lac-hydrin lotion 12) Depression - History of depression - on remeron 30 mg PO HS - psych re-consulted for decision making capacity, recommendations appreciated: patient does not have capacity to make medical decisions at this time 13) Deconditioning - PT/OT consulted and following patient 14) Diet - Modified Dysphagia with thin liquids - Consult Dietary: Recommend 60g Protein and modified dysphagia - on glucerna shake 8 oz - 3 day calorie count - speech and swallow re-consulted, recommendations appreciated - dietary recommendations appreciated 15) DVT prophylaxis - Heparin 5,000U, SC, Q12H 16) Disposition - transfer patient to [facility] - contact psych social worker regarding initiation for possible guardianship - psych consult, Dr. Bird, recommendations appreciated: deemed to not have capacity to make medical decisions at this time line: triple lumen catheter, left subclavian
[2017-08-14] MEDS: Acetylcysteine 20% Inhal Soln (4ml) INH SCH ×2 (07:59→20:25)
[2017-08-14] MEDS ORDERED: Sod Polystyrene Sulf 15 gm/60 ml Susp PO ONE (08:50)
[2017-08-14] MEDS: diltiaZEM 180 mg/24 Hours CD Cap PO SCH (09:31)
[2017-08-14] MEDS: Lidocaine 5% Patch TD SCH (09:34)
[2017-08-14] MEDS: Cefepime 1 GM in Sodium Chloride 0.9% 100 ML IVPB SCH (09:35)
[2017-08-14] MEDS: Bacitracin 500 Units/gm Oint Foilpak UD TOP SCH ×3 (09:42→16:39)
[2017-08-14] MEDS: Insulin Regular 100 units/ml SC SCH ×4 (09:45→22:23)
[2017-08-14] MEDS: Bacitracin OINT 15GM TOP SCH (09:54)
[2017-08-14] MEDS ORDERED: MethylPREDNISolone 40 mg Vial IVP ONE (10:15)
--- NOTE | 2017-08-14 10:50 | CP.PCM.PN ---
Subjective - Date & Time of Evaluation Date of Evaluation: 08/14/17 Time of Evaluation: 10:00 - Subjective Subjective: Pt denies SOB BNP: 4150 Treatment at this time is appropriate Objective - Vital Signs/Intake and Output Vital Signs (last 24 hours): Temp Pulse Resp BP Pulse Ox 98.4 F 69 20 152/73 H 98 08/14/17 08:12 08/14/17 09:33 08/14/17 08:12 08/14/17 09:33 08/14/17 08:12 - Medications Medications: Current Medications Acetylcysteine (Acetylcysteine 20%) 2 ml INH RBID [facility] Last Admin: 08/14/17 07:59 Dose: 2 ml Albuterol/Ipratropium (Duoneb 3 Mg/0.5 Mg (3 Ml) Ud) 3 ml INH RQ6 [facility] Last Admin: 08/14/17 07:59 Dose: 3 ml Amlodipine Besylate (Norvasc) 5 mg PO Q12H [facility] Last Admin: 08/14/17 09:33 Dose: 5 mg Bacitracin (Bacitracin Oint) 1 applic TOP DAILY [facility] Last Admin: 08/14/17 09:54 Dose: 1 applic Bacitracin (Bacitracin) 1 ea TOP TID [facility] Last Admin: 08/14/17 09:42 Dose: 1 ea Bumetanide (Bumex) 1 mg PO BID [facility] Last Admin: 08/14/17 09:30 Dose: 1 mg Calcium Acetate (Phoslo) 2,001 mg PO 0830,1200,1830 [facility] Last Admin: 07/14/17 12:26 Dose: 2,001 mg Dextrose (Dextrose 50% Inj) 0 ml IV STAT PRN; Protocol PRN Reason: Hypoglycemia Protocol Last Admin: 08/04/17 11:36 Dose: 50 ml Dextrose (Glutose 15) 0 gm PO ONCE PRN; Protocol PRN Reason: Hypoglycemia Protocol Dextrose (Dextrose 50% Inj) 0 ml IV STAT PRN; Protocol PRN Reason: Hypoglycemia Protocol Dextrose (Glutose 15) 0 gm PO ONCE PRN; Protocol PRN Reason: Hypoglycemia Protocol Diltiazem HCl (Cardizem Cd) 360 mg PO DAILY [facility] Last Admin: 08/14/17 09:31 Dose: 360 mg Epoetin Roel (Procrit) 10,000 unit SC FRI [facility] Fluconazole (Diflucan) 200 mg PO DAILY [facility] PRN Reason: Protocol Last Admin: 08/14/17 09:30 Dose: 200 mg Glucagon (Glucagen Diagnostic Kit) 0 mg IM STAT PRN; Protocol PRN Reason: Hypoglycemia Protocol Glucagon (Glucagen Diagnostic Kit) 0 mg IM STAT PRN; Protocol PRN Reason: Hypoglycemia Protocol Heparin Sodium (Porcine) (Heparin) 5,000 units SC Q12 [facility] PRN Reason: Protocol Last Admin: 08/14/17 09:45 Dose: 5,000 units Hydralazine HCl (Apresoline) 25 mg PO TID [facility] Last Admin: 08/14/17 09:29 Dose: 25 mg Cefepime HCl 1 gm/ Sodium (Chloride) 100 mls @ 100 mls/hr IVPB DAILY [facility] PRN Reason: Protocol Last Admin: 08/14/17 09:35 Dose: 100 mls/hr Insulin Human Regular (Humulin R) 0 units SC ACHS [facility] PRN Reason: Protocol Last Admin: 08/14/17 09:45 Dose: 3 units Lactic Acid (Lac-Hydrin 12% Lotion (225 G)) 1 applic TOP TID [facility] Last Admin: 08/14/17 09:28 Dose: 1 applic Levetiracetam (Keppra) 500 mg PO Q12H [facility] Last Admin: 08/14/17 09:30 Dose: 500 mg Levothyroxine Sodium (Synthroid) 50 mcg PO DAILY@0630 [facility] Last Admin: 08/14/17 05:30 Dose: 50 mcg Lidocaine (Lidoderm) 2 ea TD DAILY [facility] Last Admin: 08/14/17 09:34 Dose: 2 ea Lisinopril (Zestril) 40 mg PO DAILY [facility] Last Admin: 08/14/17 09:33 Dose: 40 mg Lorazepam (Ativan) 2 mg IVP Q6 PRN PRN Reason: Seizure activity Losartan Potassium (Cozaar) 25 mg PO DAILY [facility] Last Admin: 08/14/17 09:32 Dose: 25 mg Mirtazapine (Remeron) 30 mg PO HS [facility] Last Admin: 08/13/17 21:01 Dose: 30 mg Ondansetron HCl (Zofran Inj) 4 mg IVP Q6 PRN PRN Reason: Nausea/Vomiting Repaglinide (Prandin) 2 mg PO TIDAC [facility] Last Admin: 08/14/17 09:32 Dose: 2 mg Spironolactone (Aldactone) 25 mg PO BID [facility] Last Admin: 08/14/17 09:29 Dose: 25 mg Thiamine HCl (Vitamin B1 Tab) 100 mg PO DAILY [facility] Last Admin: 08/14/17 09:30 Dose: 100 mg - Labs Labs: 08/14/17 05:40 08/14/17 05:40 PT 15.3 Seconds (9.8-13.1) H 07/18/17 05:30 INR 1.4 (0.9-1.2) H 07/18/17 05:30 APTT 34.2 Seconds (25.6-37.1) 07/18/17 05:30 Assessment and Plan (1) Altered mental status Status: Acute (2) DM2 (diabetes mellitus, type 2) Status: Acute (3) MGUS (monoclonal gammopathy of unknown significance) Status: Acute (4) Pleural effusion Status: Acute (5) Anemia of renal disease Status: Acute (6) Hypertensive CKD (chronic kidney disease) Status: Acute (7) Diabetes mellitus type 2 in nonobese Status: Chronic (8) Nephrotic syndrome Status: Chronic
[2017-08-14] MEDS ORDERED: methylPREDNISolone 40 MG in Sodium Chloride 0.9% 50 ML IVPB ONE (11:00)
--- NOTE | 2017-08-14 19:26 | CP.PCM.PN ---
Subjective - Date & Time of Evaluation Date of Evaluation: 08/14/17 Time of Evaluation: 17:00 - Subjective Subjective: Patient very slow to take kayexalate, had to be given mixed in pudding; otherwise, denies shortness of breath; no nausea/vomiting; Objective - Vital Signs/Intake and Output Vital Signs (last 24 hours): Temp Pulse Resp BP Pulse Ox 97.9 F 82 20 126/61 95 08/14/17 17:02 08/14/17 17:02 08/14/17 17:02 08/14/17 17:02 08/14/17 17:02 - Medications Medications: Current Medications Acetylcysteine (Acetylcysteine 20%) 2 ml INH RBID [facility] Last Admin: 08/14/17 07:59 Dose: 2 ml Albuterol/Ipratropium (Duoneb 3 Mg/0.5 Mg (3 Ml) Ud) 3 ml INH RQ6 [facility] Last Admin: 08/14/17 13:47 Dose: 3 ml Amlodipine Besylate (Norvasc) 5 mg PO Q12H [facility] Last Admin: 08/14/17 09:33 Dose: 5 mg Bacitracin (Bacitracin Oint) 1 applic TOP DAILY [facility] Last Admin: 08/14/17 09:54 Dose: 1 applic Bacitracin (Bacitracin) 1 ea TOP TID [facility] Last Admin: 08/14/17 16:39 Dose: 1 ea Bumetanide (Bumex) 1 mg PO BID [facility] Last Admin: 08/14/17 16:39 Dose: 1 mg Calcium Acetate (Phoslo) 2,001 mg PO 0830,1200,1830 [facility] Last Admin: 07/14/17 12:26 Dose: 2,001 mg Dextrose (Dextrose 50% Inj) 0 ml IV STAT PRN; Protocol PRN Reason: Hypoglycemia Protocol Last Admin: 08/04/17 11:36 Dose: 50 ml Dextrose (Glutose 15) 0 gm PO ONCE PRN; Protocol PRN Reason: Hypoglycemia Protocol Dextrose (Dextrose 50% Inj) 0 ml IV STAT PRN; Protocol PRN Reason: Hypoglycemia Protocol Dextrose (Glutose 15) 0 gm PO ONCE PRN; Protocol PRN Reason: Hypoglycemia Protocol Diltiazem HCl (Cardizem Cd) 360 mg PO DAILY [facility] Last Admin: 08/14/17 09:31 Dose: 360 mg Epoetin Roel (Procrit) 10,000 unit SC FRI [facility] Fluconazole (Diflucan) 200 mg PO DAILY [facility] PRN Reason: Protocol Last Admin: 08/14/17 09:30 Dose: 200 mg Glucagon (Glucagen Diagnostic Kit) 0 mg IM STAT PRN; Protocol PRN Reason: Hypoglycemia Protocol Glucagon (Glucagen Diagnostic Kit) 0 mg IM STAT PRN; Protocol PRN Reason: Hypoglycemia Protocol Heparin Sodium (Porcine) (Heparin) 5,000 units SC Q12 [facility] PRN Reason: Protocol Last Admin: 08/14/17 09:45 Dose: 5,000 units Hydralazine HCl (Apresoline) 25 mg PO TID [facility] Last Admin: 08/14/17 16:38 Dose: 25 mg Cefepime HCl 1 gm/ Sodium (Chloride) 100 mls @ 100 mls/hr IVPB DAILY [facility] PRN Reason: Protocol Last Admin: 08/14/17 09:35 Dose: 100 mls/hr Insulin Human Regular (Humulin R) 0 units SC ACHS [facility] PRN Reason: Protocol Last Admin: 08/14/17 16:39 Dose: 3 units Lactic Acid (Lac-Hydrin 12% Lotion (225 G)) 1 applic TOP TID [facility] Last Admin: 08/14/17 16:40 Dose: 1 applic Levetiracetam (Keppra) 500 mg PO Q12H [facility] Last Admin: 08/14/17 09:30 Dose: 500 mg Levothyroxine Sodium (Synthroid) 50 mcg PO DAILY@0630 [facility] Last Admin: 08/14/17 05:30 Dose: 50 mcg Lidocaine (Lidoderm) 2 ea TD DAILY [facility] Last Admin: 08/14/17 09:34 Dose: 2 ea Lisinopril (Zestril) 40 mg PO DAILY [facility] Last Admin: 08/14/17 09:33 Dose: 40 mg Lorazepam (Ativan) 2 mg IVP Q6 PRN PRN Reason: Seizure activity Losartan Potassium (Cozaar) 25 mg PO DAILY [facility] Last Admin: 08/14/17 09:32 Dose: 25 mg Mirtazapine (Remeron) 30 mg PO HS [facility] Last Admin: 08/13/17 21:01 Dose: 30 mg Ondansetron HCl (Zofran Inj) 4 mg IVP Q6 PRN PRN Reason: Nausea/Vomiting Repaglinide (Prandin) 2 mg PO TIDAC [facility] Last Admin: 08/14/17 16:40 Dose: 2 mg Spironolactone (Aldactone) 25 mg PO BID [facility] Last Admin: 08/14/17 16:38 Dose: 25 mg Thiamine HCl (Vitamin B1 Tab) 100 mg PO DAILY [facility] Last Admin: 08/14/17 09:30 Dose: 100 mg - Labs Labs: 08/14/17 05:40 08/14/17 05:40 PT 15.3 Seconds (9.8-13.1) H 07/18/17 05:30 INR 1.4 (0.9-1.2) H 07/18/17 05:30 APTT 34.2 Seconds (25.6-37.1) 07/18/17 05:30 - Constitutional Appears: Non-toxic, No Acute Distress - Eye Exam Eye Exam: absent: Scleral icterus - ENT Exam ENT Exam: Mucous Membranes Moist - Respiratory Exam Respiratory Exam: Clear to Ausculation Bilateral. absent: Respiratory Distress - Cardiovascular Exam Cardiovascular Exam: RRR, +S1, +S2 - GI/Abdominal Exam GI & Abdominal Exam: Soft. absent: Distended, Tenderness - Extremities Exam Additional comments: mild ankle edema b/l - Neurological Exam Neurological Exam: Alert, Awake - Psychiatric Exam Psychiatric exam: Normal Affect, Normal Mood. absent: Agitated - Skin Skin Exam: Warm. absent: Cyanosis Assessment and Plan (1) Chronic kidney disease, stage 3 (moderate) Assessment & Plan: Stable renal function; avoid nephrotoxic meds (NSAIDS, phosphate enema, etc); Status: Chronic (2) Acute renal failure Status: Resolved (3) Nephrotic syndrome Assessment & Plan: Trying to control with KEVIN blockade; holding aldactone due to hyperkalemia, continue rest of meds; Status: Chronic (4) Pleural effusion Status: Chronic (5) Hypertensive CKD (chronic kidney disease) Assessment & Plan: Better controlled, continue anti-htn regimen; can expect BP to increase temporarily due to being given florinef (and holding aldactone) due to high K; Status: Acute (6) Hypothermia Status: Acute (7) Altered mental status Status: Acute (8) SIRS (systemic inflammatory response syndrome) Status: Acute (9) Anemia Assessment & Plan: Hgb decreasing slightly but still above goal (10-11g) for advanced CKD; continue EPO 10,000 u weekly; Status: Chronic (10) Monoclonal gammopathy Status: Chronic (11) Hypernatremia Status: Acute (12) Hyperkalemia Assessment & Plan: Not responding well to kayexalate; refused repeat dose this evening; holding aldactone, will continue with florinef daily; will do forced diuresis temporarily (IVF and IV diuretics); giving small dose of levemir (5u) until sugars better controlled (due to steroids); will continue kayexalate tomorrow; Status: Acute
[2017-08-14 20:23] LABS: CALCIUM 8.5 mg/dL (8.4-10.2)
--- NOTE | 2017-08-14 22:30 | PN ---
ENDOCRINOLOGY FOLLOWUP NOTE DATE: LOCATION: In room 668. SUBJECTIVE: This is a 66-year-old male with recent uncontrolled type 2 diabetes, now with glycemic fluctuations as noted thereof. His glucose levels today have ranged from 170 to 261 mg/dL. His latest chemistry showed a BUN of 38, sodium 143, potassium 5.7, chloride 110, CO2 of 25, glucose 274, and creatinine 1.9. So, at this time, we will continue the same oral hypoglycemic drug therapy as given with Prandin given as 2 mg p.o. t.i.d. before meals as ordered. We will titrate incremental as indicated to optimize metabolic control. We will obtain serial chemistries and supplement accordingly as needed. We will follow. Bettina Mann MD
[2017-08-14] MEDS: Sodium Chloride 0.9% 1,000 ML IV SCH (22:50)
[2017-08-14] MEDS: Insulin Detemir 100 Units/ml Inj SC SCH (22:59)
[2017-08-14] MEDS: Sod Polystyrene Sulf 15 gm/60 ml Susp PO ONE ×2 (23:00)
[2017-08-15] MEDS: Albuterol-Ipratrop 3 mg / 0.5 (3 ml) UD INH SCH ×5 (01:22→19:16)
[2017-08-15] MEDS: Levothyroxine 50 MCG TAB PO SCH (05:49)
[2017-08-15] MEDS ORDERED: Sod Polystyrene Sulf 15 gm/60 ml Susp PO ONE (06:00)
[2017-08-15 06:43] LABS: HEMOGLOBIN 10.9 g/dL (12.0-18.0); MEAN CELL VOLUME 89.4 fl (80.0-94.0); MEAN CORPUSCULAR HEMOGLOBIN 27.6 pg (27.0-31.0); MEAN CORPUSCULAR HGB CONC 30.9 g/dL (33.0-37.0); RBC 3.94 Mil/uL (4.40-5.90); RED CELL DISTRIBUTION WIDTH 17.6 % (11.5-14.5); WHITE BLOOD COUNT 16.7 K/uL (4.8-10.8)
[2017-08-15] MEDS: Acetylcysteine 20% Inhal Soln (4ml) INH SCH ×2 (07:25→19:16)
[2017-08-15 08:29] LABS: CALCIUM 8.1 mg/dL (8.4-10.2)
--- NOTE | 2017-08-15 08:49 | CP.PCM.PN ---
Subjective - Date & Time of Evaluation Date of Evaluation: 08/15/17 Time of Evaluation: 08:49 - Subjective Subjective: Patient seen and examined bedside. The patient's blood sugars inconsistent, last glucose was 171. The patient is laying in bed, NAD. Patient breathing room air. The patient is awake and verbal this morning. Patient has pulmonary bed in use and sites of chest tubes healing appropriately. Objective - Vital Signs/Intake and Output Vital Signs (last 24 hours): Temp Pulse Resp BP Pulse Ox 97.9 F 99 H 18 138/66 93 L 08/15/17 08:29 08/15/17 08:29 08/15/17 08:29 08/15/17 08:29 08/15/17 08:29 - Medications Medications: Current Medications Acetylcysteine (Acetylcysteine 20%) 2 ml INH RBID [facility] Last Admin: 08/15/17 07:25 Dose: 2 ml Albuterol/Ipratropium (Duoneb 3 Mg/0.5 Mg (3 Ml) Ud) 3 ml INH RQ6 [facility] Last Admin: 08/15/17 07:25 Dose: 3 ml Amlodipine Besylate (Norvasc) 5 mg PO Q12H [facility] Last Admin: 08/14/17 21:30 Dose: 5 mg Bacitracin (Bacitracin Oint) 1 applic TOP DAILY [facility] Last Admin: 08/14/17 09:54 Dose: 1 applic Bacitracin (Bacitracin) 1 ea TOP TID [facility] Last Admin: 08/14/17 16:39 Dose: 1 ea Bumetanide (Bumex) 1 mg PO BID [facility] Last Admin: 08/14/17 16:39 Dose: 1 mg Calcium Acetate (Phoslo) 2,001 mg PO 0830,1200,1830 [facility] Last Admin: 07/14/17 12:26 Dose: 2,001 mg Dextrose (Dextrose 50% Inj) 0 ml IV STAT PRN; Protocol PRN Reason: Hypoglycemia Protocol Last Admin: 08/04/17 11:36 Dose: 50 ml Dextrose (Glutose 15) 0 gm PO ONCE PRN; Protocol PRN Reason: Hypoglycemia Protocol Dextrose (Dextrose 50% Inj) 0 ml IV STAT PRN; Protocol PRN Reason: Hypoglycemia Protocol Dextrose (Glutose 15) 0 gm PO ONCE PRN; Protocol PRN Reason: Hypoglycemia Protocol Diltiazem HCl (Cardizem Cd) 360 mg PO DAILY [facility] Last Admin: 08/14/17 09:31 Dose: 360 mg Epoetin Roel (Procrit) 10,000 unit SC FRI [facility] Fluconazole (Diflucan) 200 mg PO DAILY [facility] PRN Reason: Protocol Last Admin: 08/14/17 09:30 Dose: 200 mg Fludrocortisone Acetate (Florinef) 0.1 mg PO DAILY [facility] Glucagon (Glucagen Diagnostic Kit) 0 mg IM STAT PRN; Protocol PRN Reason: Hypoglycemia Protocol Glucagon (Glucagen Diagnostic Kit) 0 mg IM STAT PRN; Protocol PRN Reason: Hypoglycemia Protocol Heparin Sodium (Porcine) (Heparin) 5,000 units SC Q12 [facility] PRN Reason: Protocol Last Admin: 08/14/17 21:35 Dose: Not Given Hydralazine HCl (Apresoline) 25 mg PO TID [facility] Last Admin: 08/14/17 16:38 Dose: 25 mg Cefepime HCl 1 gm/ Sodium (Chloride) 100 mls @ 100 mls/hr IVPB DAILY [facility] PRN Reason: Protocol Last Admin: 08/14/17 09:35 Dose: 100 mls/hr Sodium Chloride (Sodium Chloride 0.9%) 1,000 mls @ 100 mls/hr IV .Q10H [facility] Stop: 08/15/17 22:28 Last Admin: 08/14/17 22:50 Dose: 100 mls/hr Insulin Detemir (Levemir) 5 units SC [facility] Last Admin: 08/14/17 22:59 Dose: 5 u Insulin Human Regular (Humulin R) 0 units SC ACHS [facility] PRN Reason: Protocol Last Admin: 08/14/17 22:23 Dose: Not Given Lactic Acid (Lac-Hydrin 12% Lotion (225 G)) 1 applic TOP TID [facility] Last Admin: 08/14/17 16:40 Dose: 1 applic Levetiracetam (Keppra) 500 mg PO Q12H [facility] Last Admin: 08/14/17 21:28 Dose: 500 mg Levothyroxine Sodium (Synthroid) 50 mcg PO DAILY@0630 [facility] Last Admin: 08/15/17 05:49 Dose: 50 mcg Lidocaine (Lidoderm) 2 ea TD DAILY [facility] Last Admin: 08/14/17 09:34 Dose: 2 ea Lisinopril (Zestril) 40 mg PO DAILY [facility] Last Admin: 08/14/17 09:33 Dose: 40 mg Lorazepam (Ativan) 2 mg IVP Q6 PRN PRN Reason: Seizure activity Losartan Potassium (Cozaar) 25 mg PO DAILY [facility] Last Admin: 08/14/17 09:32 Dose: 25 mg Mirtazapine (Remeron) 30 mg PO HS [facility] Last Admin: 08/14/17 21:28 Dose: 30 mg Ondansetron HCl (Zofran Inj) 4 mg IVP Q6 PRN PRN Reason: Nausea/Vomiting Repaglinide (Prandin) 2 mg PO TIDAC [facility] Last Admin: 08/14/17 16:40 Dose: 2 mg Spironolactone (Aldactone) 25 mg PO BID [facility] Last Admin: 08/14/17 16:38 Dose: 25 mg Thiamine HCl (Vitamin B1 Tab) 100 mg PO DAILY [facility] Last Admin: 08/14/17 09:30 Dose: 100 mg - Labs Labs: 08/15/17 06:55 08/15/17 06:55 PT 15.3 Seconds (9.8-13.1) H 07/18/17 05:30 INR 1.4 (0.9-1.2) H 07/18/17 05:30 APTT 34.2 Seconds (25.6-37.1) 07/18/17 05:30 - Constitutional Appears: No Acute Distress - Head Exam Head Exam: ATRAUMATIC, NORMAL INSPECTION, NORMOCEPHALIC - Eye Exam Eye Exam: Normal appearance - ENT Exam ENT Exam: Mucous Membranes Dry - Neck Exam Neck Exam: Full ROM. absent: Tenderness - Respiratory Exam Respiratory Exam: Rales. absent: Rhonchi, Wheezes, Respiratory Distress Additional comments: mild crackles heard on lung bases, on room air - Cardiovascular Exam Cardiovascular Exam: REGULAR RHYTHM Additional comments: Systolic murmur at left mid-sternum - GI/Abdominal Exam GI & Abdominal Exam: Soft, Normal Bowel Sounds. absent: Distended, Tenderness - Extremities Exam Extremities Exam: absent: Calf Tenderness, Pedal Edema, Tenderness - Neurological Exam Neurological Exam: Alert, Awake, Oriented x3 - Skin Skin Exam: Dry Assessment and Plan - Assessment and Plan (Free Text) Assessment: 66 y/o man w/ pmh of HTN, DM, DM nephropathy, monoclonal gammopathy, recurrent L pleural effusion admitted for sepsis, Hypothermia, CHINTAN on CKD. Plan: 1) Acute respiratory failure secondary to recurrent pleural effusions. Most likely 2/2 nephrotic syndrome. - on room air, saturating 93% - bumetanide 1 mg PO daily - cefepime 1 gm IV daily day 12 - s/p therapuetic thoracocentesis w/ IR 08/04; drained 1.2 L - c/w Chest PT Q4H via bed programming - Suctioning - Pulmonary recommendations for mucomyst, bronchodilator - ID Consult, Dr Dolan, recommendations appreciated: c/w Fluconazole PO for 3wks more from (07/25/17) ends 08/15/2017 - CXR 08/08: stable left pleural effusion, minimal right pleural effusion, no pneumothorax - f/u CXR 2) Hyperkalemia - improved - K+ 4.7 - kayexelate 30 mg PO today - fludrocortisone 0.1 mg PO daily - spironolactone held - EKG: sinus rhythm w/ 1st degree AV block, prolonged QTc, no peaked T-waves - f/u BMP - monitor for acute changes - continue diuresis and IVF as per nephro 3) Hypoglycemia - resolved - patient blood glucose 171 - patient taking PO but inconsistently - on correction scale - basal insulin held as per endocrine - monitor for acute changes 4) HTN due to CKD - preCHF: Echo 05/31/17 normal EF 60-65% - Continuing to improve but renal function gradually worsening as is expected as per Nephrology - Nephrology Consult, Dr Luz, recommendations appreciated: c/w ACEI/Cardiazem /Spironolactone, ARB, Hydralazine, bumex 5) Nephrotic Syndrome - biopsy 06/05/17- nodular glomerulosclerosis/ ~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 - Renal duplex: no renal vein thrombosis - CKD stage 4: f/u Nephrology recommendations - as per nephrology: Secondary to severe diabetic nephropathy with nephrotic sydrome; renal function stable lately after resolution of ATN; repeat 24 hr urine protein with patient on aggressive KEVIN blockade, BP control and other hemodynamicaly mediated anti-proteinuric measures; still with ~9g proteinuria; will continue same management for now; no role for immunosuppressive therapy 6) Anemia - remaining stable but no increase, EPO weekly on Friday's 7) Hypothyroidism - TSH 4.19 - c/w Synthroid 50 mcg PO daily 8) Prolactinemia - Prolactin 27.1 - improving, monitor for now 9) DM type 2 - prandin 2 mg PO TIDAC - DC'ed levemir to 5 units SC HS - Lispro - blood glucose elevated, taking PO more, started on IV corticosteroids for pain 10) Seizure - c/w Keppra 500mg, PO, Q12H - Neurology Consult, Dr Nicholas, recommendations appreciated: c/w Keppra, ASA held, signed off - re-consulting neurology for seizure history and AMS - CT head 08/08: shows no intracranial bleed, no acute pathology, chronic ischemic changes - EEG: Normal awake and drowsy EEG. No focal slowing no seizure like activity was observed 11) Skin breakdown - Skin tear: healing site on LEFT dorsum of hand, healing on lower back x2, - Sacral-Stage I: healing - no heal skin ulcers - c/w heal boots - c/w pressure off-loading - c/w lac-hydrin lotion 12) Depression - History of depression - on remeron 30 mg PO HS - psych re-consulted for decision making capacity, recommendations appreciated: patient does not have capacity to make medical decisions at this time 13) Deconditioning - PT/OT consulted and following patient 14) Diet - Modified Dysphagia with thin liquids - Consult Dietary: Recommend 60g Protein and modified dysphagia - finely chopped, 2 gm Na restriction - glucerna shake daily - speech and swallow re-consulted, recommendations appreciated - dietary recommendations appreciated 15) DVT prophylaxis - Heparin 5,000U, SC, Q12H 16) Disposition - transfer patient to [facility] - contact foster care social worker regarding initiation for possible guardianship - psych consult, Dr. Bird, recommendations appreciated: deemed to not have capacity to make medical decisions at this time line: triple lumen catheter, left subclavian
--- NOTE | 2017-08-15 09:36 | RAD ---
PROCEDURE: CHEST RADIOGRAPH, 1 VIEW HISTORY: pleural effusion COMPARISON: Chest radiograph dated 08/08/2017. FINDINGS: LUNGS: Right mid lung and left basilar atelectasis. PLEURA: Moderate left pleural effusion. Trace right pleural effusion. No appreciable pneumothorax. CARDIOVASCULAR: Atherosclerotic aortic calcifications. Cardiomediastinal silhouette stably enlarged. OSSEOUS STRUCTURES: Unchanged. VISUALIZED UPPER ABDOMEN: Normal. OTHER FINDINGS: Left subclavian access central venous catheter, unchanged. IMPRESSION: Moderate left and trace right pleural effusions.
[2017-08-15] MEDS: Bacitracin OINT 15GM TOP SCH (09:59)
[2017-08-15] MEDS: Lidocaine 5% Patch TD SCH (10:02)
[2017-08-15] MEDS: Insulin Regular 100 units/ml SC SCH ×4 (10:03→21:12)
[2017-08-15] MEDS: diltiaZEM 180 mg/24 Hours CD Cap PO SCH (10:05)
[2017-08-15] MEDS: Cefepime 1 GM in Sodium Chloride 0.9% 100 ML IVPB SCH (10:06)
[2017-08-15] MEDS: Bacitracin 500 Units/gm Oint Foilpak UD TOP SCH ×3 (10:09→17:12)
[2017-08-15] MEDS: Sodium Chloride 0.9% 1,000 ML IV SCH (10:27)
[2017-08-15] MEDS: EPOETIN ALFA 10,000 UNIT/ML ML SC SCH ×2 (10:39→10:49)
[2017-08-15] MEDS: Insulin Detemir 100 Units/ml Inj SC SCH (21:14)
[2017-08-16] MEDS: Albuterol-Ipratrop 3 mg / 0.5 (3 ml) UD INH SCH ×4 (01:07→20:40)
--- NOTE | 2017-08-16 01:45 | PN ---
ENDOCRINOLOGY FOLLOWUP NOTE DATE: LOCATION: In room 668 SUBJECTIVE: This is a 66-year-old male with recent uncontrolled type 2 diabetes now being followed closely for metabolic management. His oral intake is quite variable at this time with supervening glycemic fluctuations as noted and glucose levels have ranged from 136 to 181 mg/dL. His latest chemistry showed a BUN of 38, sodium 147, potassium 4.7, chloride 111, CO2 of 25, glucose 171, and creatinine 1.9. So, at this time, we will continue the low-dose oral hypoglycemic drug therapy as given with Prandin given as 2 mg p.o. t.i.d. before meals as ordered. We will titrate incrementally as indicated to optimize metabolic control. We will follow and advise accordingly. Bettina Mann MD
[2017-08-16] MEDS: Levothyroxine 50 MCG TAB PO SCH (06:58)
[2017-08-16] MEDS: Acetylcysteine 20% Inhal Soln (4ml) INH SCH ×2 (08:18→20:40)
[2017-08-16] MEDS: Bacitracin OINT 15GM TOP SCH (08:43)
[2017-08-16] MEDS: Lidocaine 5% Patch TD SCH (09:33)
[2017-08-16] MEDS: Bacitracin 500 Units/gm Oint Foilpak UD TOP SCH ×3 (09:33→17:19)
--- NOTE | 2017-08-16 09:33 | CP.PCM.PN ---
Subjective - Date & Time of Evaluation Date of Evaluation: 08/16/17 Time of Evaluation: 09:33 - Subjective Subjective: Patient seen and examined bedside. The patient's blood sugars inconsistent, last glucose was 74. The patient is laying in bed, NAD. Patient breathing room air. The patient had breakfast bedside but the patient reports that he does not want to eat it because he does not like the taste. The patient is awake and verbal this morning. Patient has pulmonary bed in use and sites of chest tubes healing appropriately. Objective - Vital Signs/Intake and Output Vital Signs (last 24 hours): Temp Pulse Resp BP Pulse Ox 97.3 F L 80 19 155/71 H 96 08/16/17 08:50 08/16/17 08:50 08/16/17 08:50 08/16/17 08:50 08/16/17 08:50 - Medications Medications: Current Medications Acetylcysteine (Acetylcysteine 20%) 2 ml INH RBID [facility] Last Admin: 08/16/17 08:18 Dose: 2 ml Albuterol/Ipratropium (Duoneb 3 Mg/0.5 Mg (3 Ml) Ud) 3 ml INH RQ6 [facility] Last Admin: 08/16/17 08:18 Dose: 3 ml Amlodipine Besylate (Norvasc) 5 mg PO Q12H [facility] Last Admin: 08/15/17 21:05 Dose: 5 mg Bacitracin (Bacitracin Oint) 1 applic TOP DAILY [facility] Last Admin: 08/16/17 08:43 Dose: 1 applic Bacitracin (Bacitracin) 1 ea TOP TID [facility] Last Admin: 08/15/17 17:12 Dose: 1 ea Bumetanide (Bumex) 1 mg PO BID [facility] Last Admin: 08/15/17 17:13 Dose: 1 mg Calcium Acetate (Phoslo) 2,001 mg PO 0830,1200,1830 [facility] Last Admin: 07/14/17 12:26 Dose: 2,001 mg Dextrose (Dextrose 50% Inj) 0 ml IV STAT PRN; Protocol PRN Reason: Hypoglycemia Protocol Last Admin: 08/04/17 11:36 Dose: 50 ml Dextrose (Glutose 15) 0 gm PO ONCE PRN; Protocol PRN Reason: Hypoglycemia Protocol Dextrose (Dextrose 50% Inj) 0 ml IV STAT PRN; Protocol PRN Reason: Hypoglycemia Protocol Dextrose (Glutose 15) 0 gm PO ONCE PRN; Protocol PRN Reason: Hypoglycemia Protocol Diltiazem HCl (Cardizem Cd) 360 mg PO DAILY [facility] Last Admin: 08/15/17 10:05 Dose: 360 mg Epoetin Roel (Procrit) 10,000 unit SC FRI [facility] Last Admin: 08/15/17 10:49 Dose: Not Given Fluconazole (Diflucan) 200 mg PO DAILY [facility] PRN Reason: Protocol Last Admin: 08/15/17 10:05 Dose: 200 mg Fludrocortisone Acetate (Florinef) 0.1 mg PO DAILY [facility] Last Admin: 08/15/17 10:04 Dose: 0.1 mg Glucagon (Glucagen Diagnostic Kit) 0 mg IM STAT PRN; Protocol PRN Reason: Hypoglycemia Protocol Glucagon (Glucagen Diagnostic Kit) 0 mg IM STAT PRN; Protocol PRN Reason: Hypoglycemia Protocol Heparin Sodium (Porcine) (Heparin) 5,000 units SC Q12 [facility] PRN Reason: Protocol Last Admin: 08/15/17 21:05 Dose: Not Given Hydralazine HCl (Apresoline) 25 mg PO TID [facility] Last Admin: 08/15/17 17:12 Dose: 25 mg Cefepime HCl 1 gm/ Sodium (Chloride) 100 mls @ 100 mls/hr IVPB DAILY [facility] PRN Reason: Protocol Last Admin: 08/15/17 10:06 Dose: 100 mls/hr Insulin Detemir (Levemir) 5 units SC HS [facility] Last Admin: 08/15/17 21:14 Dose: 5 u Insulin Human Regular (Humulin R) 0 units SC ACHS [facility] PRN Reason: Protocol Last Admin: 08/15/17 21:12 Dose: Not Given Lactic Acid (Lac-Hydrin 12% Lotion (225 G)) 1 applic TOP TID [facility] Last Admin: 08/16/17 08:43 Dose: 1 applic Levetiracetam (Keppra) 500 mg PO Q12H [facility] Last Admin: 08/15/17 21:01 Dose: 500 mg Levothyroxine Sodium (Synthroid) 50 mcg PO DAILY@0630 [facility] Last Admin: 08/16/17 06:58 Dose: 50 mcg Lidocaine (Lidoderm) 2 ea TD DAILY [facility] Last Admin: 08/15/17 10:02 Dose: 2 ea Lisinopril (Zestril) 40 mg PO DAILY [facility] Last Admin: 08/15/17 10:09 Dose: 40 mg Lorazepam (Ativan) 2 mg IVP Q6 PRN PRN Reason: Seizure activity Losartan Potassium (Cozaar) 25 mg PO DAILY [facility] Last Admin: 08/15/17 10:05 Dose: 25 mg Mirtazapine (Remeron) 30 mg PO HS [facility] Last Admin: 08/15/17 21:01 Dose: 30 mg Ondansetron HCl (Zofran Inj) 4 mg IVP Q6 PRN PRN Reason: Nausea/Vomiting Repaglinide (Prandin) 2 mg PO TIDAC [facility] Last Admin: 08/15/17 17:14 Dose: 2 mg Spironolactone (Aldactone) 25 mg PO BID [facility] Last Admin: 08/14/17 16:38 Dose: 25 mg Thiamine HCl (Vitamin B1 Tab) 100 mg PO DAILY [facility] Last Admin: 08/15/17 10:00 Dose: 100 mg - Labs Labs: 08/15/17 06:55 08/15/17 06:55 PT 15.3 Seconds (9.8-13.1) H 07/18/17 05:30 INR 1.4 (0.9-1.2) H 07/18/17 05:30 APTT 34.2 Seconds (25.6-37.1) 07/18/17 05:30 - Constitutional Appears: No Acute Distress - Head Exam Head Exam: ATRAUMATIC, NORMAL INSPECTION, NORMOCEPHALIC - Eye Exam Eye Exam: Normal appearance - ENT Exam ENT Exam: Mucous Membranes Dry - Neck Exam Neck Exam: Full ROM. absent: Tenderness - Respiratory Exam Respiratory Exam: Rales. absent: Rhonchi, Wheezes, Respiratory Distress Additional comments: mild crackles heard on lung bases, on room air - Cardiovascular Exam Cardiovascular Exam: REGULAR RHYTHM Additional comments: Systolic murmur at left mid-sternum - GI/Abdominal Exam GI & Abdominal Exam: Soft, Normal Bowel Sounds. absent: Distended, Tenderness - Extremities Exam Extremities Exam: absent: Calf Tenderness, Pedal Edema, Tenderness - Neurological Exam Neurological Exam: Alert, Awake - Skin Skin Exam: Dry Assessment and Plan - Assessment and Plan (Free Text) Assessment: 66 y/o man w/ pmh of HTN, DM, DM nephropathy, monoclonal gammopathy, recurrent L pleural effusion admitted for sepsis, Hypothermia, CIHNTAN on CKD. Plan: 1) Acute respiratory failure secondary to recurrent pleural effusions. Most likely 2/2 nephrotic syndrome. - on room air, saturating 96% - bumetanide 1 mg PO daily - cefepime 1 gm IV daily day 13, will DC 08/18 as per ID - s/p therapuetic thoracocentesis w/ IR 08/04; drained 1.2 L - c/w Chest PT Q4H via bed programming - Suctioning - Pulmonary recommendations for mucomyst, bronchodilator - ID Consult, Dr Dolan, recommendations appreciated: c/w Fluconazole PO for 3wks more from (07/25/17) ends 08/15/2017 - CXR 08/08: stable left pleural effusion, minimal right pleural effusion, no pneumothorax - CXR 08/15/2017: moderate left and trace right pleural effusions 2) Hyperkalemia - improved - K+ 4.7 - kayexelate 30 mg PO today - fludrocortisone 0.1 mg PO daily - spironolactone held - EKG: sinus rhythm w/ 1st degree AV block, prolonged QTc, no peaked T-waves - f/u BMP - monitor for acute changes 3) Hypoglycemia - resolved - patient blood glucose 74 - patient taking PO but inconsistently - on correction scale - basal insulin held as per endocrine - monitor for acute changes 4) HTN due to CKD - preCHF: Echo 05/31/17 normal EF 60-65% - Continuing to improve but renal function gradually worsening as is expected as per Nephrology - Nephrology Consult, Dr Luz, recommendations appreciated: c/w ACEI/Cardiazem /Spironolactone, ARB, Hydralazine, bumex 5) Nephrotic Syndrome - biopsy 06/05/17- nodular glomerulosclerosis/ ~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 - Renal duplex: no renal vein thrombosis - CKD stage 4: f/u Nephrology recommendations - as per nephrology: Secondary to severe diabetic nephropathy with nephrotic sydrome; renal function stable lately after resolution of ATN; repeat 24 hr urine protein with patient on aggressive KEVIN blockade, BP control and other hemodynamicaly mediated anti-proteinuric measures; still with ~9g proteinuria; will continue same management for now; no role for immunosuppressive therapy 6) Anemia - remaining stable but no increase, EPO weekly on Friday's 7) Hypothyroidism - TSH 4.19 - c/w Synthroid 50 mcg PO daily 8) Prolactinemia - Prolactin 27.1 - improving, monitor for now 9) DM type 2 - prandin 2 mg PO TIDAC - c/w levemir to 5 units SC HS, as per nephro - Lispro - blood glucose elevated, taking PO more, started on IV corticosteroids for pain 10) Seizure - c/w Keppra 500mg, PO, Q12H - Neurology Consult, Dr Nicholas, recommendations appreciated: c/w Keppra, ASA held, signed off - re-consulting neurology for seizure history and AMS - CT head 08/08: shows no intracranial bleed, no acute pathology, chronic ischemic changes - EEG: Normal awake and drowsy EEG. No focal slowing no seizure like activity was observed 11) Skin breakdown - Skin tear: healing site on LEFT dorsum of hand, healing on lower back x2, - Sacral-Stage I: healing - no heal skin ulcers - c/w heal boots - c/w pressure off-loading - c/w lac-hydrin lotion 12) Depression - History of depression - on remeron 30 mg PO HS - psych re-consulted for decision making capacity, recommendations appreciated: patient does not have capacity to make medical decisions at this time 13) Deconditioning - PT/OT consulted and following patient 14) Diet - Modified Dysphagia with thin liquids - Consult Dietary: Recommend 60g Protein and modified dysphagia - finely chopped, 2 gm Na restriction - glucerna shake daily - speech and swallow re-consulted, recommendations appreciated - dietary recommendations appreciated 15) DVT prophylaxis - Heparin 5,000U, SC, Q12H 16) Disposition - transfer patient to [facility] - contact high school social studies teacher regarding initiation for possible guardianship - psych consult, Dr. Bird, recommendations appreciated: deemed to not have capacity to make medical decisions at this time line: triple lumen catheter, left subclavian
[2017-08-16] MEDS: Cefepime 1 GM in Sodium Chloride 0.9% 100 ML IVPB SCH (09:35)
[2017-08-16] MEDS: diltiaZEM 180 mg/24 Hours CD Cap PO SCH (09:36)
[2017-08-16] MEDS: Insulin Regular 100 units/ml SC SCH ×4 (09:37→22:57)
[2017-08-16 10:57] LABS: CALCIUM 8.2 mg/dL (8.4-10.2)
--- NOTE | 2017-08-16 17:38 | PN ---
DATE: ENDO FOLLOWUP NOTE LOCATION: In room 668. SUBJECTIVE: This is a 66-year-old male with recent acute respiratory failure, now being followed closely for metabolic management. His glycemic levels are fluctuating but much improved at this time and the latest chemistry showed a BUN of 32, sodium 145, potassium was 4.1, chloride 110, CO2 25, glucose 173 and creatinine 1.7. His glucose levels have ranged from 74-125 and 166 mg/dL. So at this time would recommend the same low-dose oral hypoglycemic drug therapy as given with Prandin given as 2 mg t.i.d. before meals as ordered. He has been started on the Levemir at 5 units at bedtime as given. We will continue the low-dose correction scale using regular insulin as given. We will continue also the levothyroxine given as 50 mcg once daily as ordered. We will titrate incrementally as indicated to optimize metabolic control. We will follow and advise accordingly. Bettina Mann MD
[2017-08-16] MEDS: Insulin Detemir 100 Units/ml Inj SC SCH (22:56)
[2017-08-17] MEDS: Albuterol-Ipratrop 3 mg / 0.5 (3 ml) UD INH SCH ×3 (01:02→19:20)
[2017-08-17] MEDS: Dextrose 50% SYRINGE Inj (50 ml) IV PRN (05:30)
[2017-08-17] MEDS: Levothyroxine 50 MCG TAB PO SCH (05:54)
[2017-08-17 07:24] LABS: CALCIUM 8.3 mg/dL (8.4-10.2)
[2017-08-17 07:30] LABS: HEMOGLOBIN 11.6 g/dL (12.0-18.0); MEAN CELL VOLUME 88.5 fl (80.0-94.0); MEAN CORPUSCULAR HEMOGLOBIN 27.9 pg (27.0-31.0); MEAN CORPUSCULAR HGB CONC 31.6 g/dL (33.0-37.0); RBC 4.14 Mil/uL (4.40-5.90); RED CELL DISTRIBUTION WIDTH 17.1 % (11.5-14.5)
[2017-08-17] MEDS: Acetylcysteine 20% Inhal Soln (4ml) INH SCH ×2 (09:15→19:21)
[2017-08-17] MEDS: Bacitracin OINT 15GM TOP SCH (10:02)
[2017-08-17] MEDS: diltiaZEM 180 mg/24 Hours CD Cap PO SCH (10:03)
[2017-08-17] MEDS: Cefepime 1 GM in Sodium Chloride 0.9% 100 ML IVPB SCH (10:06)
[2017-08-17] MEDS: Lidocaine 5% Patch TD SCH (10:06)
[2017-08-17] MEDS: Insulin Regular 100 units/ml SC SCH ×4 (10:07→23:25)
[2017-08-17] MEDS: Bacitracin 500 Units/gm Oint Foilpak UD TOP SCH ×3 (10:12→18:15)
--- NOTE | 2017-08-17 10:23 | CP.PCM.PN ---
Subjective - Date & Time of Evaluation Date of Evaluation: 08/17/17 Time of Evaluation: 09:00 - Subjective Subjective: Patient seen and examined at bedside. He is lying comfortably in bed in no acute distress. He is alert and oriented to person and place. Patient had been refusing food since he did not like the taste however yesterday evening a friend brought him food, which he ate. Patient was started on levemir basal insulin but had hypoglycemic episode early this AM. D50 was given and repeat blood sugar was 101. Objective - Vital Signs/Intake and Output Vital Signs (last 24 hours): Temp Pulse Resp BP Pulse Ox 98.3 F 60 18 155/60 H 97 08/17/17 00:16 08/17/17 10:08 08/17/17 08:51 08/17/17 10:08 08/17/17 08:51 - Medications Medications: Current Medications Acetylcysteine (Acetylcysteine 20%) 2 ml INH RBID [facility] Last Admin: 08/17/17 09:15 Dose: 2 ml Albuterol/Ipratropium (Duoneb 3 Mg/0.5 Mg (3 Ml) Ud) 3 ml INH RQ6 [facility] Last Admin: 08/17/17 01:02 Dose: 3 ml Amlodipine Besylate (Norvasc) 5 mg PO Q12H [facility] Last Admin: 08/17/17 10:05 Dose: 5 mg Bacitracin (Bacitracin Oint) 1 applic TOP DAILY [facility] Last Admin: 08/17/17 10:02 Dose: 1 applic Bacitracin (Bacitracin) 1 ea TOP TID [facility] Last Admin: 08/17/17 10:12 Dose: 1 ea Bumetanide (Bumex) 1 mg PO BID [facility] Last Admin: 08/17/17 10:03 Dose: 1 mg Calcium Acetate (Phoslo) 2,001 mg PO 0830,1200,1830 [facility] Last Admin: 07/14/17 12:26 Dose: 2,001 mg Dextrose (Dextrose 50% Inj) 0 ml IV STAT PRN; Protocol PRN Reason: Hypoglycemia Protocol Last Admin: 08/17/17 05:30 Dose: 50 ml Dextrose (Glutose 15) 0 gm PO ONCE PRN; Protocol PRN Reason: Hypoglycemia Protocol Dextrose (Dextrose 50% Inj) 0 ml IV STAT PRN; Protocol PRN Reason: Hypoglycemia Protocol Dextrose (Glutose 15) 0 gm PO ONCE PRN; Protocol PRN Reason: Hypoglycemia Protocol Diltiazem HCl (Cardizem Cd) 360 mg PO DAILY [facility] Last Admin: 08/17/17 10:03 Dose: 360 mg Epoetin Roel (Procrit) 10,000 unit SC FRI [facility] Last Admin: 08/15/17 10:49 Dose: Not Given Glucagon (Glucagen Diagnostic Kit) 0 mg IM STAT PRN; Protocol PRN Reason: Hypoglycemia Protocol Glucagon (Glucagen Diagnostic Kit) 0 mg IM STAT PRN; Protocol PRN Reason: Hypoglycemia Protocol Heparin Sodium (Porcine) (Heparin) 5,000 units SC Q12 [facility]OM[facility] PRN Reason: Protocol Last Admin: 08/17/17 10:07 Dose: 5,000 units Hydralazine HCl (Apresoline) 25 mg PO TID [facility] Last Admin: 08/17/17 10:01 Dose: 25 mg Cefepime HCl 1 gm/ Sodium (Chloride) 100 mls @ 100 mls/hr IVPB DAILY [facility] PRN Reason: Protocol Last Admin: 08/17/17 10:06 Dose: 100 mls/hr Insulin Detemir (Levemir) 5 units SC HS [facility] Last Admin: 08/16/17 22:56 Dose: 5 u Insulin Human Regular (Humulin R) 0 units SC ACHS [facility] PRN Reason: Protocol Last Admin: 08/17/17 10:07 Dose: Not Given Lactic Acid (Lac-Hydrin 12% Lotion (225 G)) 1 applic TOP TID [facility] Last Admin: 08/17/17 10:00 Dose: 1 applic Levetiracetam (Keppra) 500 mg PO Q12H [facility] Last Admin: 08/17/17 10:07 Dose: 500 mg Levothyroxine Sodium (Synthroid) 50 mcg PO DAILY@0630 [facility] Last Admin: 08/17/17 05:54 Dose: 50 mcg Lidocaine (Lidoderm) 2 ea TD DAILY [facility] Last Admin: 08/17/17 10:06 Dose: 2 ea Lisinopril (Zestril) 40 mg PO DAILY [facility] Last Admin: 08/17/17 10:04 Dose: 40 mg Lorazepam (Ativan) 2 mg IVP Q6 PRN PRN Reason: Seizure activity Losartan Potassium (Cozaar) 25 mg PO DAILY [facility] Last Admin: 08/17/17 10:08 Dose: 25 mg Mirtazapine (Remeron) 30 mg PO HS [facility] Last Admin: 08/16/17 21:21 Dose: 30 mg Ondansetron HCl (Zofran Inj) 4 mg IVP Q6 PRN PRN Reason: Nausea/Vomiting Repaglinide (Prandin) 2 mg PO TIDAC [facility] Last Admin: 08/17/17 10:02 Dose: 2 mg Spironolactone (Aldactone) 25 mg PO BID [facility] Last Admin: 08/14/17 16:38 Dose: 25 mg Thiamine HCl (Vitamin B1 Tab) 100 mg PO DAILY [facility] Last Admin: 08/17/17 10:04 Dose: 100 mg - Labs Labs: 08/17/17 05:30 08/17/17 05:30 PT 15.3 Seconds (9.8-13.1) H 07/18/17 05:30 INR 1.4 (0.9-1.2) H 07/18/17 05:30 APTT 34.2 Seconds (25.6-37.1) 07/18/17 05:30 - Constitutional Appears: Non-toxic, No Acute Distress - Head Exam Head Exam: ATRAUMATIC, NORMAL INSPECTION - Eye Exam Eye Exam: Normal appearance - Respiratory Exam Respiratory Exam: absent: Wheezes Additional comments: b/l air entry present with mild crackles noted at lung bases b/l. speaking in full sentences with no signs of respiratory distress. - Cardiovascular Exam Cardiovascular Exam: REGULAR RHYTHM, RRR, +S1, +S2, Murmur (systolic) - GI/Abdominal Exam GI & Abdominal Exam: Soft, Normal Bowel Sounds. absent: Distended, Tenderness - Extremities Exam Extremities Exam: absent: Calf Tenderness, Pedal Edema - Neurological Exam Neurological Exam: Alert, Awake Additional comments: Oriented to person and place Assessment and Plan - Assessment and Plan (Free Text) Assessment: 66 y/o M with PMH including HTN, DM2, Diabetic nephropathy, Monoclonal gammopathy and Recurrent Left pleural effusion admitted for sepsis, Hypothermia , CHINTAN on CKD. Plan: Acute respiratory failure secondary to recurrent pleural effusions, improved -Most likely 2/2 nephrotic syndrome. -Currently saturating at 96-97% on room air -Bumetanide 1 mg PO daily -S/p therapuetic thoracocentesis w/ IR on 08/04; drained 1.2 L -Cefepime 1 gm IV daily (Day 14), Will DC on 08/18 as per ID -C/w Chest PT Q4H via bed programming -Pulmonary recommendations for mucomyst, bronchodilator -ID Consult, Dr Dolan, recommendations appreciated -Completed 3 week course of PO Fluconazole from (07/25/17 - 08/15/17) - CXR 08/08: stable left pleural effusion, minimal right pleural effusion, no pneumothorax - CXR 08/15/2017: moderate left and trace right pleural effusions Hyperkalemia, resolved -K: 3.8 today Hypoglycemia -Patient had blood glucose of 24 overnight and D50 was administered with repeat glucose of 101 -Has been taking PO but inconsistently -Has been on prandin 2mg PO TID with meals and basal levemir 5u SC HS -Will discontinue prandin and levemir and follow blood glucose -Continue correctional scale -Hypoglycemia precautions HTN due to CKD -preCHF: Echo 05/31/17 normal EF 60-65% -Continuing to improve but renal function gradually worsening as is expected as per Nephrology -Nephrology Consult, Dr Luz, recommendations appreciated: c/w ACEI, ARB, Cardiazem, Hydralazine, bumex Nephrotic Syndrome -Biopsy 06/05/17- nodular glomerulosclerosis/ ~40 % globally sclerosed glomeruli( class III), 10-15 % segmentally sclerosed glomeruli, focal moderate interstitial fibrosis and mod vascular sclerosis, including marked hyaline arteriolosclerosis. -Renal duplex: no renal vein thrombosis -CKD stage 4: f/u Nephrology recommendations -As per nephrology: Secondary to severe diabetic nephropathy with nephrotic sydrome; renal function stable lately after resolution of ATN; repeat 24 hr urine protein with patient on aggressive KEVIN blockade, BP control and other hemodynamicaly mediated anti-proteinuric measures; still with ~9g proteinuria; will continue same management for now; no role for immunosuppressive therapy Anemia -Likely due to kidney disease and anemia of chronic disease -Hgb/Hct: 11.6/36.6 -EPO weekly on Friday's Hypothyroidism -Last TSH 4.19 on 08/11/17 -Continue Synthroid 50 mcg PO daily Prolactinemia, improving -Last Prolactin: 27.1 on 07/19/17 -Will monitor DM type 2, with hypoglycemic episodes -Currently on prandin 2 mg PO TIDAC and Levemir to 5 units SC HS, as per nephro -Sliding scale -ACCUcheck ACHS -Hypoglycemia precautions History of Seizure -C/w Keppra 500mg, PO, Q12H -Neurology Consult, Dr Nicholas, recommendations appreciated: c/w Keppra, ASA held, signed off -Re-consulting neurology for seizure history and AMS -CT head 08/08: shows no intracranial bleed, no acute pathology, chronic ischemic changes -EEG: Normal awake and drowsy EEG. No focal slowing no seizure like activity was observed Depression -History of depression -Remeron 30 mg PO HS -Psych re-consulted for decision making capacity, recommendations appreciated: patient does not have capacity to make medical decisions at this time Deconditioning -PT/OT consulted and following patient DVT prophylaxis -Heparin 5,000U, SC, Q12H Disposition -Pending social psychologist regarding initiation for possible guardianship -Psych consult, Dr. Bird, recommendations appreciated: deemed to not have capacity to make medical decisions at this time line: triple lumen catheter, left subclavian
--- NOTE | 2017-08-17 18:09 | PN ---
ENDOCRINOLOGY FOLLOWUP NOTE DATE: LOCATION: In room 668 SUBJECTIVE: This is a 66-year-old male with recent uncontrolled type 2 insulin-requiring diabetes developing overnight fasting hypoglycemia as expected with the low-dose basal insulin initiated by the medical staff. His glucose values have ranged today from 101 to 198 mg/dL. It dropped to as low as 24 mg/dL today as noted. So, at this time, we will discontinue the basal insulin given as Levemir at bedtime. So, at this time, we will continue the Prandin given as 2 mg p.o. t.i.d. before meals as ordered. We will obtain serial chemistries and supplement accordingly as needed. We will follow. Bettina Mann MD
[2017-08-18] MEDS: Albuterol-Ipratrop 3 mg / 0.5 (3 ml) UD INH SCH ×4 (01:00→19:12)
[2017-08-18] MEDS: Levothyroxine 50 MCG TAB PO SCH (05:50)
[2017-08-18] MEDS: Insulin Regular 100 units/ml SC SCH ×4 (06:30→23:35)
--- NOTE | 2017-08-18 07:05 | CP.PCM.PN ---
Subjective - Date & Time of Evaluation Date of Evaluation: 08/18/17 Time of Evaluation: 07:05 - Subjective Subjective: Patient seen and examined at bedside. He is lying comfortably in bed in no acute distress. He is alert and oriented to person and time. Patient has been refusing hospital food but is eating food brought to him from outside by a friend. Patient currently only on correction scale, blood glucose this morning 122. Objective - Vital Signs/Intake and Output Vital Signs (last 24 hours): Temp Pulse Resp BP Pulse Ox 97.8 F 75 18 150/74 100 08/18/17 00:55 08/18/17 00:55 08/18/17 00:55 08/18/17 00:55 08/18/17 00:55 - Medications Medications: Current Medications Acetylcysteine (Acetylcysteine 20%) 2 ml INH RBID [facility] Last Admin: 08/17/17 19:21 Dose: Not Given Albuterol/Ipratropium (Duoneb 3 Mg/0.5 Mg (3 Ml) Ud) 3 ml INH RQ6 [facility] Last Admin: 08/18/17 01:00 Dose: 3 ml Amlodipine Besylate (Norvasc) 5 mg PO Q12H [facility] Last Admin: 08/17/17 21:54 Dose: 5 mg Bacitracin (Bacitracin Oint) 1 applic TOP DAILY [facility] Last Admin: 08/17/17 10:02 Dose: 1 applic Bacitracin (Bacitracin) 1 ea TOP TID [facility] Last Admin: 08/17/17 18:15 Dose: Not Given Bumetanide (Bumex) 1 mg PO BID [facility] Last Admin: 08/17/17 18:14 Dose: 1 mg Calcium Acetate (Phoslo) 2,001 mg PO 0830,1200,1830 [facility] Last Admin: 07/14/17 12:26 Dose: 2,001 mg Dextrose (Dextrose 50% Inj) 0 ml IV STAT PRN; Protocol PRN Reason: Hypoglycemia Protocol Last Admin: 08/17/17 05:30 Dose: 50 ml Dextrose (Glutose 15) 0 gm PO ONCE PRN; Protocol PRN Reason: Hypoglycemia Protocol Dextrose (Dextrose 50% Inj) 0 ml IV STAT PRN; Protocol PRN Reason: Hypoglycemia Protocol Dextrose (Glutose 15) 0 gm PO ONCE PRN; Protocol PRN Reason: Hypoglycemia Protocol Diltiazem HCl (Cardizem Cd) 360 mg PO DAILY [facility] Last Admin: 08/17/17 10:03 Dose: 360 mg Epoetin Roel (Procrit) 10,000 unit SC FRI [facility] Last Admin: 08/15/17 10:49 Dose: Not Given Glucagon (Glucagen Diagnostic Kit) 0 mg IM STAT PRN; Protocol PRN Reason: Hypoglycemia Protocol Glucagon (Glucagen Diagnostic Kit) 0 mg IM STAT PRN; Protocol PRN Reason: Hypoglycemia Protocol Heparin Sodium (Porcine) (Heparin) 5,000 units SC Q12 [facility] PRN Reason: Protocol Last Admin: 08/17/17 22:05 Dose: Not Given Hydralazine HCl (Apresoline) 25 mg PO TID [facility] Last Admin: 08/17/17 18:13 Dose: 25 mg Cefepime HCl 1 gm/ Sodium (Chloride) 100 mls @ 100 mls/hr IVPB DAILY [facility] PRN Reason: Protocol Last Admin: 08/17/17 10:06 Dose: 100 mls/hr Insulin Human Regular (Humulin R) 0 units SC ACHS [facility] PRN Reason: Protocol Last Admin: 08/18/17 06:30 Dose: Not Given Lactic Acid (Lac-Hydrin 12% Lotion (225 G)) 1 applic TOP TID [facility] Last Admin: 08/17/17 18:14 Dose: 1 applic Levetiracetam (Keppra) 500 mg PO Q12H [facility] Last Admin: 08/17/17 21:54 Dose: 500 mg Levothyroxine Sodium (Synthroid) 50 mcg PO DAILY@0630 [facility] Last Admin: 08/18/17 05:50 Dose: 50 mcg Lidocaine (Lidoderm) 2 ea TD DAILY [facility] Last Admin: 08/17/17 10:06 Dose: 2 ea Lisinopril (Zestril) 40 mg PO DAILY [facility] Last Admin: 08/17/17 10:04 Dose: 40 mg Lorazepam (Ativan) 2 mg IVP Q6 PRN PRN Reason: Seizure activity Losartan Potassium (Cozaar) 25 mg PO DAILY [facility] Last Admin: 08/17/17 10:08 Dose: 25 mg Mirtazapine (Remeron) 30 mg PO HS [facility] Last Admin: 08/17/17 21:54 Dose: 30 mg Ondansetron HCl (Zofran Inj) 4 mg IVP Q6 PRN PRN Reason: Nausea/Vomiting Spironolactone (Aldactone) 25 mg PO BID [facility] Last Admin: 08/14/17 16:38 Dose: 25 mg Thiamine HCl (Vitamin B1 Tab) 100 mg PO DAILY [facility] Last Admin: 08/17/17 10:04 Dose: 100 mg - Labs Labs: 08/17/17 05:30 08/17/17 05:30 PT 15.3 Seconds (9.8-13.1) H 07/18/17 05:30 INR 1.4 (0.9-1.2) H 07/18/17 05:30 APTT 34.2 Seconds (25.6-37.1) 07/18/17 05:30 - Constitutional Appears: Non-toxic, No Acute Distress - Head Exam Head Exam: ATRAUMATIC, NORMAL INSPECTION, NORMOCEPHALIC - Eye Exam Eye Exam: Normal appearance - Respiratory Exam Respiratory Exam: Rales. absent: Wheezes Additional comments: mild bibasilar crackles, speaking in full sentences, no respiratory distress - Cardiovascular Exam Cardiovascular Exam: REGULAR RHYTHM, Murmur Additional comments: systolic murmur - GI/Abdominal Exam GI & Abdominal Exam: Soft, Normal Bowel Sounds. absent: Distended, Tenderness - Extremities Exam Extremities Exam: absent: Calf Tenderness, Pedal Edema, Tenderness - Neurological Exam Neurological Exam: Alert, Awake - Skin Skin Exam: Dry Assessment and Plan - Assessment and Plan (Free Text) Assessment: 66 y/o M with PMH including HTN, DM2, Diabetic nephropathy, Monoclonal gammopathy and Recurrent Left pleural effusion admitted for sepsis, Hypothermia , CHINTAN on CKD. Plan: Acute respiratory failure secondary to recurrent pleural effusions, improved - Most likely 2/2 nephrotic syndrome. - Currently saturating at 100% on room air - Bumetanide 1 mg PO daily - S/p therapuetic thoracocentesis w/ IR on 08/04; drained 1.2 L - DC on 08/18 as per ID, Cefepime 1 gm IV daily (Day 15) - C/w Chest PT Q4H via bed programming - Pulmonary recommendations for mucomyst, bronchodilator - ID Consult, Dr Dolan, recommendations appreciated - Completed 3 week course of PO Fluconazole from (07/25/17 - 08/15/17) - CXR 08/08: stable left pleural effusion, minimal right pleural effusion, no pneumothorax - CXR 08/15/2017: moderate left and trace right pleural effusions Hyperkalemia, resolved - K: 3.8 today Hypoglycemia - improved - blood glucose this morning 122 - Has been taking PO but inconsistently - DC'ed prandin and levemir - Continue correctional scale - Hypoglycemia precautions HTN due to CKD - preCHF: Echo 05/31/17 normal EF 60-65% - Continuing to improve but renal function gradually worsening as is expected as per Nephrology - Nephrology Consult, Dr Luz, recommendations appreciated: c/w ACEI, ARB, Cardiazem, Hydralazine, bumex Nephrotic Syndrome - Biopsy 06/05/17- nodular glomerulosclerosis/ ~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 - Renal duplex: no renal vein thrombosis - CKD stage 4: f/u Nephrology recommendations - As per nephrology: Secondary to severe diabetic nephropathy with nephrotic sydrome; renal function stable lately after resolution of ATN; repeat 24 hr urine protein with patient on aggressive KEVIN blockade, BP control and other hemodynamicaly mediated anti-proteinuric measures; still with ~9g proteinuria; will continue same management for now; no role for immunosuppressive therapy Anemia - Likely due to kidney disease and anemia of chronic disease - Hgb/Hct: 11.6/36.6 - EPO weekly on Friday's Hypothyroidism - Last TSH 4.19 on 08/11/17 - Continue Synthroid 50 mcg PO daily Prolactinemia, improving - Last Prolactin: 27.1 on 07/19/17 - Will monitor DM type 2, with hypoglycemic episodes - Currently on prandin 2 mg PO TIDAC and Levemir to 5 units SC HS, as per nephro - correction scale - ACCUcheck ACHS - Hypoglycemia precautions - f/u HbA1c History of Seizure - C/w Keppra 500mg, PO, Q12H - Neurology Consult, Dr Nicholas, recommendations appreciated: c/w KARINA Whitfield held, signed off - Re-consulted neurology for seizure history and AMS - CT head 08/08: shows no intracranial bleed, no acute pathology, chronic ischemic changes - EEG: Normal awake and drowsy EEG. No focal slowing no seizure like activity was observed Depression - History of depression - Remeron 30 mg PO HS - Psych re-consulted for decision making capacity, recommendations appreciated: patient does not have capacity to make medical decisions at this time Deconditioning - PT/OT re-consulted for mobility assessment DVT prophylaxis - Heparin 5,000U, SC, Q12H Disposition - Pending social group worker regarding initiation for possible guardianship - Psych consult, Dr. Bird, recommendations appreciated: deemed to not have capacity to make medical decisions at this time line: triple lumen catheter, left subclavian
[2017-08-18] MEDS: Acetylcysteine 20% Inhal Soln (4ml) INH SCH ×2 (08:07→19:12)
[2017-08-18] MEDS: Bacitracin OINT 15GM TOP SCH (09:36)
[2017-08-18] MEDS: Bacitracin 500 Units/gm Oint Foilpak UD TOP SCH ×3 (09:36→17:37)
[2017-08-18] MEDS: Lidocaine 5% Patch TD SCH (09:37)
[2017-08-18] MEDS: Cefepime 1 GM in Sodium Chloride 0.9% 100 ML IVPB SCH (09:42)
[2017-08-18] MEDS: diltiaZEM 180 mg/24 Hours CD Cap PO SCH (09:46)
--- NOTE | 2017-08-18 21:55 | PN ---
ENDOCRINOLOGY FOLLOWUP NOTE DATE: LOCATION: In room 668 SUBJECTIVE: This is a 66-year-old male with recent uncontrolled type 2 diabetes, now being followed closely for metabolic management. His glycemic levels are fluctuating, but improved and the glucose values have ranged from 122 to 179 and 181 mg/dL. So, at this time, we will continue the low-dose Prandin given as 2 mg p.o. t.i.d. before meals as ordered. We will titrate indicated to optimize metabolic control. We will obtain serial chemistries and supplement accordingly as needed. We will follow. Bettina Mann MD
--- NOTE | 2017-08-18 22:04 | CP.PCM.PN ---
Subjective - Date & Time of Evaluation Date of Evaluation: 08/18/17 Time of Evaluation: 19:15 - Subjective Subjective: Patient tolerating diet, wants more salt in his food; denies sob, nausea/ vomiting; Objective - Vital Signs/Intake and Output Vital Signs (last 24 hours): Temp Pulse Resp BP Pulse Ox 98.1 F 80 20 140/70 97 08/18/17 16:30 08/18/17 20:51 08/18/17 16:30 08/18/17 20:51 08/18/17 16:30 - Medications Medications: Current Medications Acetylcysteine (Acetylcysteine 20%) 2 ml INH RBID [facility] Last Admin: 08/18/17 19:12 Dose: 2 ml Albuterol/Ipratropium (Duoneb 3 Mg/0.5 Mg (3 Ml) Ud) 3 ml INH RQ6 [facility] Last Admin: 08/18/17 19:12 Dose: 3 ml Amlodipine Besylate (Norvasc) 5 mg PO Q12H [facility] Last Admin: 08/18/17 20:51 Dose: 5 mg Bacitracin (Bacitracin Oint) 1 applic TOP DAILY [facility] Last Admin: 08/18/17 09:36 Dose: Not Given Bacitracin (Bacitracin) 1 ea TOP TID [facility] Last Admin: 08/18/17 17:37 Dose: 1 ea Bumetanide (Bumex) 1 mg PO BID [facility] Last Admin: 08/18/17 17:37 Dose: 1 mg Calcium Acetate (Phoslo) 2,001 mg PO 0830,1200,1830 [facility] Last Admin: 07/14/17 12:26 Dose: 2,001 mg Dextrose (Dextrose 50% Inj) 0 ml IV STAT PRN; Protocol PRN Reason: Hypoglycemia Protocol Last Admin: 08/17/17 05:30 Dose: 50 ml Dextrose (Glutose 15) 0 gm PO ONCE PRN; Protocol PRN Reason: Hypoglycemia Protocol Dextrose (Dextrose 50% Inj) 0 ml IV STAT PRN; Protocol PRN Reason: Hypoglycemia Protocol Dextrose (Glutose 15) 0 gm PO ONCE PRN; Protocol PRN Reason: Hypoglycemia Protocol Diltiazem HCl (Cardizem Cd) 360 mg PO DAILY [facility] Last Admin: 08/18/17 09:46 Dose: 360 mg Epoetin Roel (Procrit) 10,000 unit SC FRI [facility] Last Admin: 08/15/17 10:49 Dose: Not Given Glucagon (Glucagen Diagnostic Kit) 0 mg IM STAT PRN; Protocol PRN Reason: Hypoglycemia Protocol Glucagon (Glucagen Diagnostic Kit) 0 mg IM STAT PRN; Protocol PRN Reason: Hypoglycemia Protocol Heparin Sodium (Porcine) (Heparin) 5,000 units SC Q12 [facility] PRN Reason: Protocol Last Admin: 08/18/17 21:01 Dose: Not Given Hydralazine HCl (Apresoline) 25 mg PO TID [facility] Last Admin: 08/18/17 17:38 Dose: 25 mg Insulin Human Regular (Humulin R) 0 units SC ACHS [facility] PRN Reason: Protocol Last Admin: 08/18/17 17:38 Dose: Not Given Lactic Acid (Lac-Hydrin 12% Lotion (225 G)) 1 applic TOP TID [facility] Last Admin: 08/18/17 17:36 Dose: 1 applic Levetiracetam (Keppra) 500 mg PO Q12H [facility] Last Admin: 08/18/17 20:50 Dose: 500 mg Levothyroxine Sodium (Synthroid) 50 mcg PO DAILY@0630 [facility] Last Admin: 08/18/17 05:50 Dose: 50 mcg Lidocaine (Lidoderm) 2 ea TD DAILY [facility] Last Admin: 08/18/17 09:37 Dose: 2 ea Lisinopril (Zestril) 40 mg PO DAILY [facility] Last Admin: 08/18/17 09:35 Dose: 40 mg Lorazepam (Ativan) 2 mg IVP Q6 PRN PRN Reason: Seizure activity Losartan Potassium (Cozaar) 25 mg PO DAILY [facility] Last Admin: 08/18/17 09:35 Dose: 25 mg Mirtazapine (Remeron) 30 mg PO HS [facility] Last Admin: 08/18/17 21:01 Dose: 30 mg Ondansetron HCl (Zofran Inj) 4 mg IVP Q6 PRN PRN Reason: Nausea/Vomiting Spironolactone (Aldactone) 25 mg PO BID [facility] Last Admin: 08/14/17 16:38 Dose: 25 mg Thiamine HCl (Vitamin B1 Tab) 100 mg PO DAILY [facility] Last Admin: 08/18/17 09:37 Dose: 100 mg - Labs Labs: 08/17/17 05:30 08/17/17 05:30 PT 15.3 Seconds (9.8-13.1) H 07/18/17 05:30 INR 1.4 (0.9-1.2) H 07/18/17 05:30 APTT 34.2 Seconds (25.6-37.1) 07/18/17 05:30 - Constitutional Appears: Non-toxic, No Acute Distress - Eye Exam Eye Exam: Normal appearance. absent: Scleral icterus - ENT Exam ENT Exam: Mucous Membranes Moist - Respiratory Exam Respiratory Exam: Clear to Ausculation Bilateral. absent: Respiratory Distress Additional comments: decreased breath sounds at b/l bases; - Cardiovascular Exam Cardiovascular Exam: RRR, +S1, +S2 - GI/Abdominal Exam GI & Abdominal Exam: Soft. absent: Distended, Tenderness - Extremities Exam Additional comments: no leg edema; - Neurological Exam Neurological Exam: Alert, Awake - Psychiatric Exam Psychiatric exam: Normal Mood. absent: Agitated - Skin Skin Exam: Warm. absent: Cyanosis Assessment and Plan (1) Chronic kidney disease, stage 3 (moderate) Assessment & Plan: Stable renal function; trying to maximize anti-proteinuric/KEVIN blockade therapy in the setting of severe nephrotic syndrome; Status: Chronic (2) Acute renal failure Status: Resolved (3) Nephrotic syndrome Status: Chronic (4) Pleural effusion Assessment & Plan: Appears aysmptomatic despite exam indicating effusions recurring; monitor regularly for need for thoracentesis; Status: Chronic (5) Hypertensive CKD (chronic kidney disease) Assessment & Plan: Off aldactone due to hyperkalemia; BP above goal (<130/80); increasing losartan to 50 mg daily; monitor K; Status: Acute (6) Hypothermia Status: Acute (7) Altered mental status Status: Acute (8) SIRS (systemic inflammatory response syndrome) Status: Acute (9) Anemia Assessment & Plan: Hgb above goal (10-11g); will again hold EPO and restart once hgb trending down or <111 g); Status: Chronic (10) Monoclonal gammopathy Status: Chronic (11) Hypernatremia Status: Acute (12) Hyperkalemia Assessment & Plan: Improved with florinef, has not recurred since holding aldactone; florinef stopped due to concern for sodium retention; continue to hold aldactone; Status: Acute
[2017-08-19] MEDS: Albuterol-Ipratrop 3 mg / 0.5 (3 ml) UD INH SCH ×4 (01:00→20:09)
[2017-08-19] MEDS: Levothyroxine 50 MCG TAB PO SCH (05:30)
[2017-08-19 06:42] LABS: MEAN CELL VOLUME 88.9 fl (80.0-94.0); MEAN CORPUSCULAR HEMOGLOBIN 27.4 pg (27.0-31.0); MEAN CORPUSCULAR HGB CONC 30.8 g/dL (33.0-37.0); RBC 4.38 Mil/uL (4.40-5.90); RED CELL DISTRIBUTION WIDTH 17.1 % (11.5-14.5); WHITE BLOOD COUNT 7.7 K/uL (4.8-10.8)
[2017-08-19] MEDS: Insulin Regular 100 units/ml SC SCH ×4 (06:48→21:43)
[2017-08-19 07:03] LABS: CALCIUM 8.2 mg/dL (8.4-10.2)
[2017-08-19] MEDS: Acetylcysteine 20% Inhal Soln (4ml) INH SCH ×2 (08:13→20:10)
[2017-08-19] MEDS: Bacitracin OINT 15GM TOP SCH (08:37)
[2017-08-19] MEDS: Bacitracin 500 Units/gm Oint Foilpak UD TOP SCH ×4 (08:37→18:29)
[2017-08-19] MEDS: diltiaZEM 180 mg/24 Hours CD Cap PO SCH (08:38)
[2017-08-19] MEDS: Lidocaine 5% Patch TD SCH (08:39)
--- NOTE | 2017-08-19 08:44 | CP.PCM.PN ---
Subjective - Date & Time of Evaluation Date of Evaluation: 08/19/17 Time of Evaluation: 07:25 - Subjective Subjective: Patient seen and examined at bedside. He is lying comfortably in bed in no acute distress. He is alert and oriented to person, place, and time. Patient has been refusing hospital food but is eating food brought to him from outside by a friend. Patient currently only on correction scale, blood glucose this morning 104. Objective - Vital Signs/Intake and Output Vital Signs (last 24 hours): Temp Pulse Resp BP Pulse Ox 98.2 F 72 18 140/68 96 08/19/17 08:21 08/19/17 08:21 08/19/17 08:21 08/19/17 08:21 08/19/17 08:21 - Medications Medications: Current Medications Acetylcysteine (Acetylcysteine 20%) 2 ml INH RBID [facility] Last Admin: 08/19/17 08:13 Dose: 2 ml Albuterol/Ipratropium (Duoneb 3 Mg/0.5 Mg (3 Ml) Ud) 3 ml INH RQ6 [facility] Last Admin: 08/19/17 08:13 Dose: 3 ml Amlodipine Besylate (Norvasc) 5 mg PO Q12H [facility] Last Admin: 08/19/17 08:41 Dose: 5 mg Bacitracin (Bacitracin Oint) 1 applic TOP DAILY [facility] Last Admin: 08/19/17 08:37 Dose: Not Given Bacitracin (Bacitracin) 1 ea TOP TID [facility] Last Admin: 08/19/17 08:37 Dose: Not Given Bumetanide (Bumex) 1 mg PO BID [facility] Last Admin: 08/19/17 08:37 Dose: 1 mg Calcium Acetate (Phoslo) 2,001 mg PO 0830,1200,1830 [facility] Last Admin: 07/14/17 12:26 Dose: 2,001 mg Dextrose (Dextrose 50% Inj) 0 ml IV STAT PRN; Protocol PRN Reason: Hypoglycemia Protocol Last Admin: 08/17/17 05:30 Dose: 50 ml Dextrose (Glutose 15) 0 gm PO ONCE PRN; Protocol PRN Reason: Hypoglycemia Protocol Dextrose (Dextrose 50% Inj) 0 ml IV STAT PRN; Protocol PRN Reason: Hypoglycemia Protocol Dextrose (Glutose 15) 0 gm PO ONCE PRN; Protocol PRN Reason: Hypoglycemia Protocol Diltiazem HCl (Cardizem Cd) 360 mg PO DAILY [facility] Last Admin: 08/19/17 08:38 Dose: 360 mg Epoetin Roel (Procrit) 10,000 unit SC FRI [facility] Last Admin: 08/15/17 10:49 Dose: Not Given Glucagon (Glucagen Diagnostic Kit) 0 mg IM STAT PRN; Protocol PRN Reason: Hypoglycemia Protocol Glucagon (Glucagen Diagnostic Kit) 0 mg IM STAT PRN; Protocol PRN Reason: Hypoglycemia Protocol Heparin Sodium (Porcine) (Heparin) 5,000 units SC Q12 [facility] PRN Reason: Protocol Last Admin: 08/19/17 08:39 Dose: Not Given Hydralazine HCl (Apresoline) 25 mg PO TID [facility] Last Admin: 08/19/17 08:36 Dose: 25 mg Insulin Human Regular (Humulin R) 0 units SC ACHS [facility] PRN Reason: Protocol Last Admin: 08/19/17 06:48 Dose: Not Given Lactic Acid (Lac-Hydrin 12% Lotion (225 G)) 1 applic TOP TID [facility] Last Admin: 08/19/17 08:39 Dose: 1 applic Levetiracetam (Keppra) 500 mg PO Q12H [facility] Last Admin: 08/19/17 08:39 Dose: 500 mg Levothyroxine Sodium (Synthroid) 50 mcg PO DAILY@0630 [facility] Last Admin: 08/19/17 05:30 Dose: 50 mcg Lidocaine (Lidoderm) 2 ea TD DAILY [facility] Last Admin: 08/19/17 08:39 Dose: 2 ea Lisinopril (Zestril) 40 mg PO DAILY [facility] Last Admin: 08/19/17 08:42 Dose: 40 mg Lorazepam (Ativan) 2 mg IVP Q6 PRN PRN Reason: Seizure activity Losartan Potassium (Cozaar) 50 mg PO DAILY [facility] Last Admin: 08/19/17 08:38 Dose: 50 mg Mirtazapine (Remeron) 30 mg PO HS [facility] Last Admin: 08/18/17 21:01 Dose: 30 mg Ondansetron HCl (Zofran Inj) 4 mg IVP Q6 PRN PRN Reason: Nausea/Vomiting Spironolactone (Aldactone) 25 mg PO BID [facility] Last Admin: 08/14/17 16:38 Dose: 25 mg Thiamine HCl (Vitamin B1 Tab) 100 mg PO DAILY [facility] Last Admin: 08/19/17 08:41 Dose: 100 mg - Labs Labs: 08/19/17 06:10 08/19/17 06:10 PT 15.3 Seconds (9.8-13.1) H 07/18/17 05:30 INR 1.4 (0.9-1.2) H 07/18/17 05:30 APTT 34.2 Seconds (25.6-37.1) 07/18/17 05:30 - Constitutional Appears: Non-toxic, No Acute Distress - Head Exam Head Exam: ATRAUMATIC, NORMAL INSPECTION, NORMOCEPHALIC - Eye Exam Eye Exam: Normal appearance - ENT Exam ENT Exam: Mucous Membranes Moist - Neck Exam Neck Exam: Full ROM. absent: Tenderness - Respiratory Exam Respiratory Exam: Rales. absent: Wheezes Additional comments: mild bibasilar crackles, speaking in full sentences, no respiratory distress - Cardiovascular Exam Cardiovascular Exam: REGULAR RHYTHM, Murmur Additional comments: systolic murmur - GI/Abdominal Exam GI & Abdominal Exam: Soft, Normal Bowel Sounds. absent: Distended, Tenderness - Extremities Exam Extremities Exam: absent: Calf Tenderness, Pedal Edema, Tenderness - Neurological Exam Neurological Exam: Alert, Awake, Oriented x3 - Skin Skin Exam: Dry Assessment and Plan - Assessment and Plan (Free Text) Assessment: 66 y/o M with PMH including HTN, DM2, Diabetic nephropathy, Monoclonal gammopathy and Recurrent Left pleural effusion admitted for sepsis, Hypothermia , CHINTAN on CKD. Plan: Acute respiratory failure secondary to recurrent pleural effusions, improved - Most likely 2/2 nephrotic syndrome. - Currently saturating at 100% on room air - Bumetanide 1 mg PO daily - S/p therapuetic thoracocentesis w/ IR on 08/04; drained 1.2 L - DC on 08/18 as per ID, Cefepime 1 gm IV daily (Day 15) - C/w Chest PT Q4H via bed programming - Pulmonary recommendations for mucomyst, bronchodilator - ID Consult, Dr Dolan, recommendations appreciated - Completed 3 week course of PO Fluconazole from (07/25/17 - 08/15/17) - CXR 08/08: stable left pleural effusion, minimal right pleural effusion, no pneumothorax - CXR 08/15/2017: moderate left and trace right pleural effusions Hyperkalemia, resolved - K: 4.9 today Hypoglycemia - improved - blood glucose this morning 104 - Has been taking PO but inconsistently - DC'ed prandin and levemir - Continue correctional scale - Hypoglycemia precautions HTN due to CKD - preCHF: Echo 05/31/17 normal EF 60-65% - Continuing to improve but renal function gradually worsening as is expected as per Nephrology - Nephrology Consult, Dr Luz, recommendations appreciated: c/w ACEI, ARB, Cardiazem, Hydralazine, bumex - increased losartan to 50 mg PO daily, as per nephro Nephrotic Syndrome - Biopsy 06/05/17- nodular glomerulosclerosis/ ~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 - Renal duplex: no renal vein thrombosis - CKD stage 4: f/u Nephrology recommendations - As per nephrology: Secondary to severe diabetic nephropathy with nephrotic sydrome; renal function stable lately after resolution of ATN; repeat 24 hr urine protein with patient on aggressive KEVIN blockade, BP control and other hemodynamicaly mediated anti-proteinuric measures; still with ~9g proteinuria; will continue same management for now; no role for immunosuppressive therapy Anemia - Likely due to kidney disease and anemia of chronic disease - Hgb/Hct: 11.6/36.6 - EPO weekly on , held due to stable Hb, will resume if below 11 as per nephro Hypothyroidism - Last TSH 4.19 on 08/11/17 - Continue Synthroid 50 mcg PO daily Prolactinemia, improving - Last Prolactin: 27.1 on 07/19/17 - Will monitor DM type 2, with hypoglycemic episodes - Currently on prandin 2 mg PO TIDAC and Levemir to 5 units SC HS, as per nephro - correction scale - ACCUcheck ACHS - Hypoglycemia precautions - f/u HbA1c History of Seizure - C/w Keppra 500mg, PO, Q12H - Neurology Consult, Dr Nicholas, recommendations appreciated: c/w Keppra, ASA held, signed off - Re-consulted neurology for seizure history and AMS - CT head 08/08: shows no intracranial bleed, no acute pathology, chronic ischemic changes - EEG: Normal awake and drowsy EEG. No focal slowing no seizure like activity was observed Depression - History of depression - Remeron 30 mg PO HS - Psych re-consulted for decision making capacity, recommendations appreciated: patient does not have capacity to make medical decisions at this time Deconditioning - PT/OT re-consulted for mobility assessment Diet - poor PO intake due disliking hospital food, will eat food brought to him from outside - speech/swallow eval re-consulted DVT prophylaxis - Heparin 5,000U, SC, Q12H Disposition - Pending social work faculty member regarding initiation for possible guardianship - Psych consult, Dr. Bird, recommendations appreciated: deemed to not have capacity to make medical decisions at this time line: triple lumen catheter, left subclavian
--- NOTE | 2017-08-19 23:05 | PN ---
ENDOCRINOLOGY FOLLOWUP NOTE DATE: LOCATION: In room 668 SUBJECTIVE: This is a 66-year-old male with recent uncontrolled type 2 diabetes, now being followed closely for metabolic management. His glucose values are fluctuating and are ranging from 104 to 173 mg/dL. His oral intake remains quite variable and suboptimal at this time. The latest chemistry showed a BUN of 36, sodium 142, potassium 4.9, chloride 110, CO2 of 29, glucose 91, and creatinine 1.6. So, at this time, we will restart lower dose of the oral hypoglycemic therapy with Prandin to be given as 1 mg p.o. t.i.d. before meals as ordered. We will titrate incremental as indicated to optimize metabolic control. We will follow and advise accordingly. Bettina Mann MD
[2017-08-20] MEDS: Albuterol-Ipratrop 3 mg / 0.5 (3 ml) UD INH SCH ×4 (01:00→19:07)
[2017-08-20] MEDS: Levothyroxine 50 MCG TAB PO SCH (06:15)
[2017-08-20] MEDS: Acetylcysteine 20% Inhal Soln (4ml) INH SCH ×2 (07:49→19:07)
--- NOTE | 2017-08-20 08:51 | CP.PCM.PN ---
Subjective - Date & Time of Evaluation Date of Evaluation: 08/20/17 Time of Evaluation: 06:40 - Subjective Subjective: Patient seen and examined at bedside. He is lying comfortably in bed in no acute distress. He is alert and oriented to person, place, and time. Patient has been refusing hospital food but is eating food brought to him from outside by a friend. Patient re-evaluated by speech/swallow yesterday. Patient currently only on correction scale, blood glucose this morning 181. Objective - Vital Signs/Intake and Output Vital Signs (last 24 hours): Temp Pulse Resp BP Pulse Ox 98.2 F 77 20 142/69 94 L 08/20/17 08:21 08/20/17 08:21 08/20/17 08:21 08/20/17 08:21 08/20/17 08:21 - Medications Medications: Current Medications Acetylcysteine (Acetylcysteine 20%) 2 ml INH RBID [facility] Last Admin: 08/20/17 07:49 Dose: 2 ml Albuterol/Ipratropium (Duoneb 3 Mg/0.5 Mg (3 Ml) Ud) 3 ml INH RQ6 [facility] Last Admin: 08/20/17 07:50 Dose: 3 ml Amlodipine Besylate (Norvasc) 5 mg PO Q12H [facility] Last Admin: 08/19/17 21:44 Dose: Not Given Bacitracin (Bacitracin Oint) 1 applic TOP DAILY [facility] Last Admin: 08/19/17 08:37 Dose: Not Given Bacitracin (Bacitracin) 1 ea TOP TID [facility] Last Admin: 08/19/17 18:29 Dose: 1 ea Bumetanide (Bumex) 1 mg PO BID [facility] Last Admin: 08/19/17 17:05 Dose: 1 mg Calcium Acetate (Phoslo) 2,001 mg PO 0830,1200,1830 [facility] Last Admin: 07/14/17 12:26 Dose: 2,001 mg Dextrose (Dextrose 50% Inj) 0 ml IV STAT PRN; Protocol PRN Reason: Hypoglycemia Protocol Last Admin: 08/17/17 05:30 Dose: 50 ml Dextrose (Glutose 15) 0 gm PO ONCE PRN; Protocol PRN Reason: Hypoglycemia Protocol Dextrose (Dextrose 50% Inj) 0 ml IV STAT PRN; Protocol PRN Reason: Hypoglycemia Protocol Dextrose (Glutose 15) 0 gm PO ONCE PRN; Protocol PRN Reason: Hypoglycemia Protocol Diltiazem HCl (Cardizem Cd) 360 mg PO DAILY [facility] Last Admin: 08/19/17 08:38 Dose: 360 mg Epoetin Roel (Procrit) 10,000 unit SC FRI [facility] Last Admin: 08/15/17 10:49 Dose: Not Given Glucagon (Glucagen Diagnostic Kit) 0 mg IM STAT PRN; Protocol PRN Reason: Hypoglycemia Protocol Glucagon (Glucagen Diagnostic Kit) 0 mg IM STAT PRN; Protocol PRN Reason: Hypoglycemia Protocol Heparin Sodium (Porcine) (Heparin) 5,000 units SC Q12 [facility] PRN Reason: Protocol Last Admin: 08/19/17 21:43 Dose: Not Given Hydralazine HCl (Apresoline) 25 mg PO TID [facility] Last Admin: 08/19/17 17:05 Dose: 25 mg Insulin Human Regular (Humulin R) 0 units SC ACHS [facility] PRN Reason: Protocol Last Admin: 08/19/17 21:43 Dose: Not Given Lactic Acid (Lac-Hydrin 12% Lotion (225 G)) 1 applic TOP TID [facility] Last Admin: 08/19/17 17:03 Dose: 1 applic Levetiracetam (Keppra) 500 mg PO Q12H [facility] Last Admin: 08/19/17 21:44 Dose: Not Given Levothyroxine Sodium (Synthroid) 50 mcg PO DAILY@0630 [facility] Last Admin: 08/20/17 06:15 Dose: 50 mcg Lidocaine (Lidoderm) 2 ea TD DAILY [facility] Last Admin: 08/19/17 08:39 Dose: 2 ea Lisinopril (Zestril) 40 mg PO DAILY [facility] Last Admin: 08/19/17 08:42 Dose: 40 mg Lorazepam (Ativan) 2 mg IVP Q6 PRN PRN Reason: Seizure activity Losartan Potassium (Cozaar) 50 mg PO DAILY [facility] Last Admin: 08/19/17 08:38 Dose: 50 mg Mirtazapine (Remeron) 30 mg PO HS [facility] Last Admin: 08/19/17 21:44 Dose: Not Given Ondansetron HCl (Zofran Inj) 4 mg IVP Q6 PRN PRN Reason: Nausea/Vomiting Repaglinide (Prandin) 1 mg PO TIDAC [facility] Last Admin: 08/19/17 17:05 Dose: 1 mg Spironolactone (Aldactone) 25 mg PO BID [facility] Last Admin: 08/14/17 16:38 Dose: 25 mg Thiamine HCl (Vitamin B1 Tab) 100 mg PO DAILY [facility] Last Admin: 08/19/17 08:41 Dose: 100 mg - Labs Labs: 08/19/17 06:10 08/19/17 06:10 PT 15.3 Seconds (9.8-13.1) H 07/18/17 05:30 INR 1.4 (0.9-1.2) H 07/18/17 05:30 APTT 34.2 Seconds (25.6-37.1) 07/18/17 05:30 - Constitutional Appears: No Acute Distress - Head Exam Head Exam: ATRAUMATIC, NORMAL INSPECTION, NORMOCEPHALIC - Eye Exam Eye Exam: Normal appearance - ENT Exam ENT Exam: Mucous Membranes Moist - Neck Exam Neck Exam: Full ROM. absent: Tenderness - Respiratory Exam Respiratory Exam: Rales. absent: Rhonchi, Wheezes, Respiratory Distress Additional comments: mild bibasilar crackles, speaking in full sentences, no respiratory distress - Cardiovascular Exam Cardiovascular Exam: REGULAR RHYTHM, Murmur. absent: Tachycardia Additional comments: systolic murmur - GI/Abdominal Exam GI & Abdominal Exam: Soft, Normal Bowel Sounds. absent: Distended, Tenderness - Extremities Exam Extremities Exam: absent: Calf Tenderness, Pedal Edema, Tenderness - Neurological Exam Neurological Exam: Alert, Awake, Oriented x3 - Skin Skin Exam: Dry Assessment and Plan - Assessment and Plan (Free Text) Assessment: 66 y/o M with PMH including HTN, DM2, Diabetic nephropathy, Monoclonal gammopathy and Recurrent Left pleural effusion admitted for sepsis, Hypothermia , CHINTAN on CKD. Plan: Acute respiratory failure secondary to recurrent pleural effusions, improved - Most likely 2/2 nephrotic syndrome. - Currently saturating at 94% on room air - Bumetanide 1 mg PO daily - S/p therapuetic thoracocentesis w/ IR on 08/04; drained 1.2 L - DC'ed on 08/18 as per ID, Cefepime 1 gm IV daily (completed to Day 15) - C/w Chest PT Q4H via bed programming - Pulmonary recommendations for mucomyst, bronchodilator - ID Consult, Dr Dolan, recommendations appreciated - Completed 3 week course of PO Fluconazole from (07/25/17 - 08/15/17) - CXR 08/08: stable left pleural effusion, minimal right pleural effusion, no pneumothorax - CXR 08/15/2017: moderate left and trace right pleural effusions Hyperkalemia, resolved - K: 4.9 Hypoglycemia - improved - blood glucose this morning 181 - Has been taking PO but inconsistently - DC'ed prandin and levemir - Continue correctional scale - Hypoglycemia precautions HTN due to CKD - preCHF: Echo 05/31/17 normal EF 60-65% - Continuing to improve but renal function gradually worsening as is expected as per Nephrology - Nephrology Consult, Dr Luz, recommendations appreciated: c/w ACEI, ARB, Cardiazem, Hydralazine, bumex - c/w losartan 50 mg PO daily, as per nephro Nephrotic Syndrome - Biopsy 06/05/17- nodular glomerulosclerosis/ ~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 - Renal duplex: no renal vein thrombosis - CKD stage 4: f/u Nephrology recommendations - As per nephrology: Secondary to severe diabetic nephropathy with nephrotic sydrome; renal function stable lately after resolution of ATN; repeat 24 hr urine protein with patient on aggressive KEVIN blockade, BP control and other hemodynamicaly mediated anti-proteinuric measures; still with ~9g proteinuria; will continue same management for now; no role for immunosuppressive therapy Anemia - Likely due to kidney disease and anemia of chronic disease - Hgb/Hct: 11.6/36.6 - EPO weekly on , held due to stable Hb, will resume if below 11 as per nephro Hypothyroidism - Last TSH 4.19 on 08/11/17 - Continue Synthroid 50 mcg PO daily Prolactinemia, improving - Last Prolactin: 27.1 on 07/19/17 - Will monitor DM type 2, with hypoglycemic episodes - Currently on prandin 2 mg PO TIDAC - correction scale - ACCUcheck ACHS - Hypoglycemia precautions - HbA1c: 5.7% History of Seizure - C/w Keppra 500mg, PO, Q12H - Neurology Consult, Dr Nicholas, recommendations appreciated: c/w KARINA Whitfield held, signed off - Re-consulted neurology for seizure history and AMS - CT head 08/08: shows no intracranial bleed, no acute pathology, chronic ischemic changes - EEG: Normal awake and drowsy EEG. No focal slowing no seizure like activity was observed Depression - History of depression - Remeron 30 mg PO HS - Psych re-consulted for decision making capacity, recommendations appreciated: patient does not have capacity to make medical decisions at this time Deconditioning - PT/OT re-consulted for mobility assessment Diet - poor PO intake due disliking hospital food, will eat food brought to him from outside - speech/swallow eval re-consulted, recommendations appreciated: remain w/ finely chopped diet, with exceptions for bite sized portions for specific foods listed in consultation - tuna fish, grilled cheese, pancakes, [place] toast, and penne pasta DVT prophylaxis - Heparin 5,000U, SC, Q12H, patient refuses at times Disposition - Pending social service liaison regarding initiation for possible guardianship - Psych consult, Dr. Bird, recommendations appreciated: deemed to not have capacity to make medical decisions at this time line: triple lumen catheter, left subclavian
[2017-08-20] MEDS: Lidocaine 5% Patch TD SCH (09:16)
[2017-08-20] MEDS: diltiaZEM 180 mg/24 Hours CD Cap PO SCH (09:16)
[2017-08-20] MEDS: Insulin Regular 100 units/ml SC SCH ×4 (09:19→22:19)
[2017-08-20] MEDS: Bacitracin 500 Units/gm Oint Foilpak UD TOP SCH ×3 (09:19→16:54)
[2017-08-20] MEDS: Bacitracin OINT 15GM TOP SCH (09:19)
--- NOTE | 2017-08-20 21:43 | CP.PCM.PN ---
Subjective - Date & Time of Evaluation Date of Evaluation: 08/20/17 Time of Evaluation: 19:40 - Subjective Subjective: Denies shortness of breath; tolerating diet; not ambulating much; Objective - Vital Signs/Intake and Output Vital Signs (last 24 hours): Temp Pulse Resp BP Pulse Ox 97.8 F 67 20 139/67 97 08/20/17 16:12 08/20/17 16:12 08/20/17 16:12 08/20/17 16:12 08/20/17 16:12 - Medications Medications: Current Medications Acetylcysteine (Acetylcysteine 20%) 2 ml INH RBID [facility] Last Admin: 08/20/17 19:07 Dose: 2 ml Albuterol/Ipratropium (Duoneb 3 Mg/0.5 Mg (3 Ml) Ud) 3 ml INH RQ6 [facility] Last Admin: 08/20/17 19:07 Dose: 3 ml Amlodipine Besylate (Norvasc) 5 mg PO Q12H [facility] Last Admin: 08/20/17 09:17 Dose: 5 mg Bacitracin (Bacitracin Oint) 1 applic TOP DAILY [facility] Last Admin: 08/20/17 09:19 Dose: 1 applic Bacitracin (Bacitracin) 1 ea TOP TID [facility] Last Admin: 08/20/17 16:54 Dose: 1 ea Bumetanide (Bumex) 1 mg PO BID [facility] Last Admin: 08/20/17 16:55 Dose: 1 mg Calcium Acetate (Phoslo) 2,001 mg PO 0830,1200,1830 [facility] Last Admin: 07/14/17 12:26 Dose: 2,001 mg Dextrose (Dextrose 50% Inj) 0 ml IV STAT PRN; Protocol PRN Reason: Hypoglycemia Protocol Last Admin: 08/17/17 05:30 Dose: 50 ml Dextrose (Glutose 15) 0 gm PO ONCE PRN; Protocol PRN Reason: Hypoglycemia Protocol Dextrose (Dextrose 50% Inj) 0 ml IV STAT PRN; Protocol PRN Reason: Hypoglycemia Protocol Dextrose (Glutose 15) 0 gm PO ONCE PRN; Protocol PRN Reason: Hypoglycemia Protocol Diltiazem HCl (Cardizem Cd) 360 mg PO DAILY [facility] Last Admin: 08/20/17 09:16 Dose: 360 mg Epoetin Roel (Procrit) 10,000 unit SC FRI [facility] Last Admin: 08/15/17 10:49 Dose: Not Given Glucagon (Glucagen Diagnostic Kit) 0 mg IM STAT PRN; Protocol PRN Reason: Hypoglycemia Protocol Glucagon (Glucagen Diagnostic Kit) 0 mg IM STAT PRN; Protocol PRN Reason: Hypoglycemia Protocol Heparin Sodium (Porcine) (Heparin) 5,000 units SC Q12 [facility] PRN Reason: Protocol Last Admin: 08/20/17 09:20 Dose: Not Given Hydralazine HCl (Apresoline) 25 mg PO TID [facility] Last Admin: 08/20/17 16:55 Dose: 25 mg Insulin Human Regular (Humulin R) 0 units SC ACHS [facility] PRN Reason: Protocol Last Admin: 08/20/17 16:56 Dose: Not Given Lactic Acid (Lac-Hydrin 12% Lotion (225 G)) 1 applic TOP TID [facility] Last Admin: 08/20/17 16:54 Dose: 1 applic Levetiracetam (Keppra) 500 mg PO Q12H [facility] Last Admin: 08/20/17 09:19 Dose: 500 mg Levothyroxine Sodium (Synthroid) 50 mcg PO DAILY@0630 [facility] Last Admin: 08/20/17 06:15 Dose: 50 mcg Lidocaine (Lidoderm) 2 ea TD DAILY [facility] Last Admin: 08/20/17 09:16 Dose: 2 ea Lisinopril (Zestril) 40 mg PO DAILY [facility] Last Admin: 08/20/17 09:18 Dose: 40 mg Lorazepam (Ativan) 2 mg IVP Q6 PRN PRN Reason: Seizure activity Losartan Potassium (Cozaar) 50 mg PO DAILY [facility] Last Admin: 08/20/17 09:21 Dose: 50 mg Mirtazapine (Remeron) 30 mg PO HS [facility] Last Admin: 08/19/17 21:44 Dose: Not Given Ondansetron HCl (Zofran Inj) 4 mg IVP Q6 PRN PRN Reason: Nausea/Vomiting Repaglinide (Prandin) 1 mg PO TIDAC [facility] Last Admin: 08/20/17 16:55 Dose: 1 mg Spironolactone (Aldactone) 25 mg PO BID [facility] Last Admin: 08/14/17 16:38 Dose: 25 mg Thiamine HCl (Vitamin B1 Tab) 100 mg PO DAILY [facility] Last Admin: 08/20/17 09:18 Dose: 100 mg - Labs Labs: 08/19/17 06:10 08/19/17 06:10 PT 15.3 Seconds (9.8-13.1) H 07/18/17 05:30 INR 1.4 (0.9-1.2) H 07/18/17 05:30 APTT 34.2 Seconds (25.6-37.1) 07/18/17 05:30 - Constitutional Appears: Non-toxic, No Acute Distress - Eye Exam Eye Exam: absent: Scleral icterus - ENT Exam ENT Exam: Mucous Membranes Moist - Respiratory Exam Respiratory Exam: absent: Respiratory Distress Additional comments: minimal rales; - Cardiovascular Exam Cardiovascular Exam: RRR, +S1, +S2 - GI/Abdominal Exam GI & Abdominal Exam: Soft. absent: Distended, Tenderness - Exam Exam: absent: Bladder Distension - Extremities Exam Additional comments: no leg edema; - Neurological Exam Neurological Exam: Alert, Awake - Psychiatric Exam Psychiatric exam: Normal Mood. absent: Agitated - Skin Skin Exam: Warm. absent: Cyanosis Assessment and Plan (1) Chronic kidney disease, stage 3 (moderate) Assessment & Plan: Stable electrolyte and volume status; continuing with aggressive KEVIN blockade ( ARON-I and ARB) in the setting of severe nephrotic syndrome and recurrent pleural effusions; continue to monitor for hyperkalemia; Status: Chronic (2) Acute renal failure Status: Resolved (3) Nephrotic syndrome Status: Chronic (4) Pleural effusion Status: Chronic (5) Hypertensive CKD (chronic kidney disease) Assessment & Plan: Better controlled after increasing losartan dose; continue current meds; continue to hold aldactone due to hyperkalemia; Status: Acute (6) Hypothermia Status: Acute (7) Altered mental status Status: Acute (8) SIRS (systemic inflammatory response syndrome) Status: Acute (9) Anemia Assessment & Plan: Hgb above goal; holding further EPO doses for now; Status: Chronic (10) Monoclonal gammopathy Status: Chronic (11) Hypernatremia Status: Acute (12) Hyperkalemia Assessment & Plan: Most recently controlled; need to ensure patient is on low K diet; may still need kayaxalate every other day; Status: Acute
--- NOTE | 2017-08-20 22:38 | PN ---
ENDOCRINOLOGY FOLLOWUP NOTE DATE: LOCATION: Room 668. SUBJECTIVE: This is a 67-year-old male with recent uncontrolled type 2 insulin-requiring diabetes now being followed closely for metabolic management. His glycemic levels are fluctuating, but much improved at this time and has been off basal insulin as noted. His glucose values have ranged from 167-181 and 259 mg/dL. So at this time, we will continue the low-dose oral hypoglycemic drug therapy as given with Prandin given as 1 mg t.i.d. before meals as ordered. We will titrate incrementally as indicated to optimize metabolic control. We will obtain serial chemistries and supplement accordingly as needed. We will follow and advise accordingly. Bettina Mann MD
[2017-08-21] MEDS: Albuterol-Ipratrop 3 mg / 0.5 (3 ml) UD INH SCH ×4 (01:00→19:51)
[2017-08-21] MEDS: Levothyroxine 50 MCG TAB PO SCH (07:45)
[2017-08-21] MEDS: Acetylcysteine 20% Inhal Soln (4ml) INH SCH ×2 (08:37→19:51)
[2017-08-21] MEDS: diltiaZEM 180 mg/24 Hours CD Cap PO SCH (09:23)
[2017-08-21] MEDS: Insulin Regular 100 units/ml SC SCH ×4 (09:24→21:46)
[2017-08-21] MEDS: Lidocaine 5% Patch TD SCH (09:26)
[2017-08-21] MEDS: Bacitracin OINT 15GM TOP SCH (09:27)
[2017-08-21] MEDS: Bacitracin 500 Units/gm Oint Foilpak UD TOP SCH ×3 (09:28→17:05)
--- NOTE | 2017-08-21 09:51 | CP.PCM.PN ---
Subjective - Date & Time of Evaluation Date of Evaluation: 08/21/17 Time of Evaluation: 07:10 - Subjective Subjective: Patient seen and examined at bedside. He is lying comfortably in bed in no acute distress. He is alert and oriented to person, place, and time. Patient has been refusing hospital food but is eating food brought to him from outside by a friend. Patient blood glucose this morning 112. Objective - Vital Signs/Intake and Output Vital Signs (last 24 hours): Temp Pulse Resp BP Pulse Ox 98.0 F 73 20 154/70 H 95 08/21/17 08:21 08/21/17 09:26 08/21/17 08:21 08/21/17 09:26 08/21/17 08:21 - Medications Medications: Current Medications Acetylcysteine (Acetylcysteine 20%) 2 ml INH RBID [facility] Last Admin: 08/21/17 08:37 Dose: 2 ml Albuterol/Ipratropium (Duoneb 3 Mg/0.5 Mg (3 Ml) Ud) 3 ml INH RQ6 [facility] Last Admin: 08/21/17 08:38 Dose: 3 ml Amlodipine Besylate (Norvasc) 5 mg PO Q12H [facility] Last Admin: 08/20/17 22:20 Dose: 5 mg Bacitracin (Bacitracin Oint) 1 applic TOP DAILY [facility] Last Admin: 08/21/17 09:27 Dose: 1 applic Bacitracin (Bacitracin) 1 ea TOP TID [facility] Last Admin: 08/21/17 09:28 Dose: 1 ea Bumetanide (Bumex) 1 mg PO BID [facility] Last Admin: 08/21/17 09:24 Dose: 1 mg Calcium Acetate (Phoslo) 2,001 mg PO 0830,1200,1830 [facility] Last Admin: 07/14/17 12:26 Dose: 2,001 mg Dextrose (Dextrose 50% Inj) 0 ml IV STAT PRN; Protocol PRN Reason: Hypoglycemia Protocol Last Admin: 08/17/17 05:30 Dose: 50 ml Dextrose (Glutose 15) 0 gm PO ONCE PRN; Protocol PRN Reason: Hypoglycemia Protocol Dextrose (Dextrose 50% Inj) 0 ml IV STAT PRN; Protocol PRN Reason: Hypoglycemia Protocol Dextrose (Glutose 15) 0 gm PO ONCE PRN; Protocol PRN Reason: Hypoglycemia Protocol Diltiazem HCl (Cardizem Cd) 360 mg PO DAILY [facility] Last Admin: 08/21/17 09:23 Dose: 360 mg Glucagon (Glucagen Diagnostic Kit) 0 mg IM STAT PRN; Protocol PRN Reason: Hypoglycemia Protocol Glucagon (Glucagen Diagnostic Kit) 0 mg IM STAT PRN; Protocol PRN Reason: Hypoglycemia Protocol Heparin Sodium (Porcine) (Heparin) 5,000 units SC Q12 [facility] PRN Reason: Protocol Last Admin: 08/21/17 09:22 Dose: Not Given Hydralazine HCl (Apresoline) 25 mg PO TID [facility] Last Admin: 08/21/17 09:26 Dose: 25 mg Insulin Human Regular (Humulin R) 0 units SC ACHS [facility] PRN Reason: Protocol Last Admin: 08/21/17 09:24 Dose: Not Given Lactic Acid (Lac-Hydrin 12% Lotion (225 G)) 1 applic TOP TID [facility] Last Admin: 08/21/17 09:24 Dose: 1 applic Levetiracetam (Keppra) 500 mg PO Q12H [facility] Last Admin: 08/21/17 09:23 Dose: 500 mg Levothyroxine Sodium (Synthroid) 50 mcg PO DAILY@0630 [facility] Last Admin: 08/21/17 07:45 Dose: Not Given Lidocaine (Lidoderm) 2 ea TD DAILY [facility] Last Admin: 08/21/17 09:26 Dose: 2 ea Lisinopril (Zestril) 40 mg PO DAILY [facility] Last Admin: 08/21/17 09:24 Dose: 40 mg Lorazepam (Ativan) 2 mg IVP Q6 PRN PRN Reason: Seizure activity Losartan Potassium (Cozaar) 50 mg PO DAILY [facility] Last Admin: 08/21/17 09:25 Dose: 50 mg Mirtazapine (Remeron) 30 mg PO HS [facility] Last Admin: 08/20/17 22:20 Dose: 30 mg Ondansetron HCl (Zofran Inj) 4 mg IVP Q6 PRN PRN Reason: Nausea/Vomiting Repaglinide (Prandin) 1 mg PO TIDAC [facility] Last Admin: 08/21/17 09:25 Dose: 1 mg Spironolactone (Aldactone) 25 mg PO BID [facility] Last Admin: 08/14/17 16:38 Dose: 25 mg Thiamine HCl (Vitamin B1 Tab) 100 mg PO DAILY [facility] Last Admin: 08/21/17 09:23 Dose: 100 mg - Labs Labs: 08/19/17 06:10 08/19/17 06:10 PT 15.3 Seconds (9.8-13.1) H 07/18/17 05:30 INR 1.4 (0.9-1.2) H 07/18/17 05:30 APTT 34.2 Seconds (25.6-37.1) 07/18/17 05:30 - Constitutional Appears: No Acute Distress - Head Exam Head Exam: ATRAUMATIC, NORMAL INSPECTION, NORMOCEPHALIC - Eye Exam Eye Exam: Normal appearance - ENT Exam ENT Exam: Mucous Membranes Moist - Neck Exam Neck Exam: Full ROM. absent: Tenderness - Respiratory Exam Respiratory Exam: Rales. absent: Rhonchi, Wheezes, Respiratory Distress Additional comments: mild bibasilar crackles, speaking in full sentences, no respiratory distress - Cardiovascular Exam Cardiovascular Exam: REGULAR RHYTHM, Murmur. absent: Tachycardia Additional comments: systolic murmur - GI/Abdominal Exam GI & Abdominal Exam: Soft, Normal Bowel Sounds. absent: Distended, Tenderness - Extremities Exam Extremities Exam: absent: Calf Tenderness, Pedal Edema, Tenderness - Neurological Exam Neurological Exam: Alert, Awake, Oriented x3 - Skin Skin Exam: Dry Assessment and Plan - Assessment and Plan (Free Text) Assessment: 66 y/o M with PMH including HTN, DM2, Diabetic nephropathy, Monoclonal gammopathy and Recurrent Left pleural effusion admitted for sepsis, Hypothermia , CHINTAN on CKD. Plan: Acute respiratory failure secondary to recurrent pleural effusions, improved - Most likely 2/2 nephrotic syndrome. - Currently saturating at 95% on room air - Bumetanide 1 mg PO daily - S/p therapuetic thoracocentesis w/ IR on 08/04; drained 1.2 L - DC'ed on 08/18 as per ID, Cefepime 1 gm IV daily (completed to Day 15) - C/w Chest PT Q4H via bed programming - Pulmonary recommendations for mucomyst, bronchodilator - ID Consult, Dr Dolan, recommendations appreciated - Completed 3 week course of PO Fluconazole from (07/25/17 - 08/15/17) - CXR 08/08: stable left pleural effusion, minimal right pleural effusion, no pneumothorax - CXR 08/15/2017: moderate left and trace right pleural effusions Hyperkalemia - K: 5.3 - kayexalate 15 gm PO ordered - f/u bmp Left Upper Extremity Pain - complained of pain today - still has triple lumen catheter, consider removal - patient refusing heparin - full ROM, no masses, no cords - monitor for acute changes Hypoglycemia - improved - blood glucose this morning 112 - Has been taking PO but inconsistently - DC'ed prandin and levemir - Continue correctional scale - Hypoglycemia precautions HTN due to CKD - preCHF: Echo 05/31/17 normal EF 60-65% - Continuing to improve but renal function gradually worsening as is expected as per Nephrology - Nephrology Consult, Dr Luz, recommendations appreciated: c/w ACEI, ARB, Cardiazem, Hydralazine, bumex - c/w losartan 50 mg PO daily, as per nephro Nephrotic Syndrome - Biopsy 06/05/17- nodular glomerulosclerosis/ ~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 - Renal duplex: no renal vein thrombosis - CKD stage 4: f/u Nephrology recommendations - As per nephrology: Secondary to severe diabetic nephropathy with nephrotic sydrome; renal function stable lately after resolution of ATN; repeat 24 hr urine protein with patient on aggressive KEVIN blockade, BP control and other hemodynamicaly mediated anti-proteinuric measures; still with ~9g proteinuria; will continue same management for now; no role for immunosuppressive therapy Anemia - Likely due to kidney disease and anemia of chronic disease - Hgb/Hct: 12.0/39.0 - EPO weekly on , held due to stable Hb, will resume if below 11 as per nephro Hypothyroidism - Last TSH 4.19 on 08/11/17 - Continue Synthroid 50 mcg PO daily Prolactinemia, improving - Last Prolactin: 27.1 on 07/19/17 - Will monitor DM type 2, with hypoglycemic episodes - Currently on prandin 2 mg PO TIDAC - correction scale - ACCUcheck ACHS - Hypoglycemia precautions - HbA1c: 5.7% History of Seizure - C/w Keppra 500mg, PO, Q12H - Neurology Consult, Dr Nicholas, recommendations appreciated: c/w KARINA Whitfield held, signed off - Re-consulted neurology for seizure history and AMS - CT head 08/08: shows no intracranial bleed, no acute pathology, chronic ischemic changes - EEG: Normal awake and drowsy EEG. No focal slowing no seizure like activity was observed Depression - History of depression - Remeron 30 mg PO HS - Psych re-consulted for decision making capacity, recommendations appreciated: patient does not have capacity to make medical decisions at this time Deconditioning - PT/OT re-consulted for mobility assessment Diet - poor PO intake due disliking hospital food, will eat food brought to him from outside - speech/swallow eval re-consulted, recommendations appreciated: remain w/ finely chopped diet, with exceptions for bite sized portions for specific foods listed in consultation - tuna fish, grilled cheese, pancakes, Georgian toast, and penne pasta DVT prophylaxis - Heparin 5,000U, SC, Q12H, patient refuses at times Disposition - Pending social service assistant regarding initiation for possible guardianship - Psych consult, Dr. Bird, recommendations appreciated: deemed to not have capacity to make medical decisions at this time line: triple lumen catheter, left subclavian
[2017-08-21 10:02] LABS: CALCIUM 8.3 mg/dL (8.4-10.2)
[2017-08-21] MEDS ORDERED: Sod Polystyrene Sulf 15 gm/60 ml Susp PO ONE (10:35)
[2017-08-22] MEDS: Albuterol-Ipratrop 3 mg / 0.5 (3 ml) UD INH SCH ×4 (01:03→19:20)
[2017-08-22 06:36] LABS: HEMOGLOBIN 12.5 g/dL (12.0-18.0); MEAN CELL VOLUME 88.2 fl (80.0-94.0); MEAN CORPUSCULAR HEMOGLOBIN 28.5 pg (27.0-31.0); MEAN CORPUSCULAR HGB CONC 32.3 g/dL (33.0-37.0); RBC 4.4 Mil/uL (4.40-5.90); RED CELL DISTRIBUTION WIDTH 17.4 % (11.5-14.5); WHITE BLOOD COUNT 5.9 K/uL (4.8-10.8)
[2017-08-22 06:46] LABS: CALCIUM 8.4 mg/dL (8.4-10.2)
[2017-08-22] MEDS: Levothyroxine 50 MCG TAB PO SCH (06:48)
[2017-08-22] MEDS: Insulin Regular 100 units/ml SC SCH ×4 (06:48→22:55)
[2017-08-22] MEDS: Acetylcysteine 20% Inhal Soln (4ml) INH SCH ×2 (07:34→19:20)
--- NOTE | 2017-08-22 08:36 | PN ---
ENDOCRINOLOGY FOLLOWUP NOTE DATE: LOCATION: Room 668. SUBJECTIVE: This is a 67-year-old male with recent uncontrolled type 2 diabetes now being followed closely for metabolic management. His glycemic levels are fluctuating depending on the variability of his oral intake as noted. His glucose levels have ranged from 112 to 284 mg/dL. His latest chemistry showed a BUN of 43, sodium 143, potassium 5.3, chloride 112, CO2 of 23, glucose 141 and creatinine 1.6. So at this time we will modify and titrate his oral hypoglycemic therapy with Prandin to be given as 2 mg p.o. t.i.d. before meals as ordered. We will titrate incrementally as indicated to optimize metabolic control. We will follow and advise accordingly. Bettina Mann MD
[2017-08-22] MEDS: diltiaZEM 180 mg/24 Hours CD Cap PO SCH (08:48)
[2017-08-22] MEDS: Bacitracin OINT 15GM TOP SCH (08:49)
[2017-08-22] MEDS: Lidocaine 5% Patch TD SCH (08:49)
[2017-08-22] MEDS: Bacitracin 500 Units/gm Oint Foilpak UD TOP SCH ×3 (08:49→16:00)
--- NOTE | 2017-08-22 08:56 | RAD ---
PROCEDURE: CHEST RADIOGRAPH, 1 VIEW HISTORY: Pleural effusion COMPARISON: 08/15/2017. FINDINGS: LUNGS: The lungs are well inflated. There is right basilar atelectasis. PLEURA: Moderate left pleural effusion. Suspect loculated fluid in the right major fissure. CARDIOVASCULAR: Stable. Atherosclerotic aortic arch calcifications are present. OSSEOUS STRUCTURES: No significant abnormalities. VISUALIZED UPPER ABDOMEN: Normal. OTHER FINDINGS: None. IMPRESSION: No change in moderate left pleural effusion and suspected loculated fluid in the right major fissure. Underlying left lower lobe airspace disease cannot be excluded.
--- NOTE | 2017-08-22 09:03 | CP.PCM.PN ---
Subjective - Date & Time of Evaluation Date of Evaluation: 08/22/17 Time of Evaluation: 06:55 - Subjective Subjective: Patient seen and examined at bedside. He is lying comfortably in bed in no acute distress. He is alert and oriented to person, place, and time. Patient had complaints of general body pain last night relieved w/ tylenol. Patient blood glucose this morning 96. Objective - Vital Signs/Intake and Output Vital Signs (last 24 hours): Temp Pulse Resp BP Pulse Ox 97.4 F L 75 20 147/68 95 08/22/17 08:14 08/22/17 08:47 08/22/17 08:14 08/22/17 08:47 08/22/17 08:14 - Medications Medications: Current Medications Acetylcysteine (Acetylcysteine 20%) 2 ml INH RBID [facility] Last Admin: 08/22/17 07:34 Dose: 2 ml Albuterol/Ipratropium (Duoneb 3 Mg/0.5 Mg (3 Ml) Ud) 3 ml INH RQ6 [facility] Last Admin: 08/22/17 07:35 Dose: 3 ml Amlodipine Besylate (Norvasc) 5 mg PO Q12H [facility] Last Admin: 08/22/17 08:47 Dose: 5 mg Bacitracin (Bacitracin Oint) 1 applic TOP DAILY [facility] Last Admin: 08/22/17 08:49 Dose: 1 applic Bacitracin (Bacitracin) 1 ea TOP TID [facility] Last Admin: 08/22/17 08:49 Dose: 1 ea Bumetanide (Bumex) 1 mg PO BID [facility] Last Admin: 08/22/17 08:48 Dose: 1 mg Dextrose (Dextrose 50% Inj) 0 ml IV STAT PRN; Protocol PRN Reason: Hypoglycemia Protocol Last Admin: 08/17/17 05:30 Dose: 50 ml Dextrose (Glutose 15) 0 gm PO ONCE PRN; Protocol PRN Reason: Hypoglycemia Protocol Dextrose (Dextrose 50% Inj) 0 ml IV STAT PRN; Protocol PRN Reason: Hypoglycemia Protocol Dextrose (Glutose 15) 0 gm PO ONCE PRN; Protocol PRN Reason: Hypoglycemia Protocol Diltiazem HCl (Cardizem Cd) 360 mg PO DAILY [facility] Last Admin: 08/22/17 08:48 Dose: 360 mg Glucagon (Glucagen Diagnostic Kit) 0 mg IM STAT PRN; Protocol PRN Reason: Hypoglycemia Protocol Glucagon (Glucagen Diagnostic Kit) 0 mg IM STAT PRN; Protocol PRN Reason: Hypoglycemia Protocol Heparin Sodium (Porcine) (Heparin) 5,000 units SC Q12 [facility] PRN Reason: Protocol Last Admin: 08/22/17 08:49 Dose: Not Given Hydralazine HCl (Apresoline) 50 mg PO TID [facility] Last Admin: 08/22/17 08:48 Dose: 50 mg Insulin Human Regular (Humulin R) 0 units SC ACHS [facility] PRN Reason: Protocol Last Admin: 08/22/17 06:48 Dose: Not Given Lactic Acid (Lac-Hydrin 12% Lotion (225 G)) 1 applic TOP TID [facility] Last Admin: 08/22/17 08:48 Dose: 1 applic Levetiracetam (Keppra) 500 mg PO Q12H [facility] Last Admin: 08/22/17 08:48 Dose: 500 mg Levothyroxine Sodium (Synthroid) 50 mcg PO DAILY@0630 [facility] Last Admin: 08/22/17 06:48 Dose: 50 mcg Lidocaine (Lidoderm) 2 ea TD DAILY [facility] Last Admin: 08/22/17 08:49 Dose: 2 ea Lisinopril (Zestril) 40 mg PO DAILY [facility] Last Admin: 08/22/17 08:47 Dose: 40 mg Lorazepam (Ativan) 2 mg IVP Q6 PRN PRN Reason: Seizure activity Losartan Potassium (Cozaar) 50 mg PO DAILY [facility] Last Admin: 08/22/17 08:49 Dose: 50 mg Mirtazapine (Remeron) 30 mg PO HS [facility] Last Admin: 08/21/17 21:06 Dose: 30 mg Ondansetron HCl (Zofran Inj) 4 mg IVP Q6 PRN PRN Reason: Nausea/Vomiting Repaglinide (Prandin) 2 mg PO TIDAC [facility] Last Admin: 08/22/17 08:47 Dose: 2 mg Spironolactone (Aldactone) 25 mg PO BID [facility] Last Admin: 08/14/17 16:38 Dose: 25 mg Thiamine HCl (Vitamin B1 Tab) 100 mg PO DAILY [facility] Last Admin: 08/22/17 08:50 Dose: 100 mg - Labs Labs: 08/22/17 05:00 08/22/17 05:00 PT 15.3 Seconds (9.8-13.1) H 01/19/18 05:30 INR 1.4 (0.9-1.2) H 07/18/17 05:30 APTT 34.2 Seconds (25.6-37.1) 07/18/17 05:30 - Constitutional Appears: No Acute Distress - Head Exam Head Exam: ATRAUMATIC, NORMAL INSPECTION, NORMOCEPHALIC - Eye Exam Eye Exam: Normal appearance - ENT Exam ENT Exam: Mucous Membranes Moist - Neck Exam Neck Exam: Full ROM. absent: Tenderness - Respiratory Exam Respiratory Exam: Rales. absent: Rhonchi, Wheezes, Respiratory Distress Additional comments: mild bibasilar crackles, speaking in full sentences, no respiratory distress - Cardiovascular Exam Cardiovascular Exam: REGULAR RHYTHM. absent: Tachycardia Additional comments: systolic murmur - GI/Abdominal Exam GI & Abdominal Exam: Soft, Normal Bowel Sounds. absent: Distended, Tenderness - Extremities Exam Extremities Exam: absent: Calf Tenderness, Pedal Edema, Tenderness - Neurological Exam Neurological Exam: Alert, Awake, Oriented x3 - Skin Skin Exam: Dry Assessment and Plan - Assessment and Plan (Free Text) Assessment: 66 y/o M with PMH including HTN, DM2, Diabetic nephropathy, Monoclonal gammopathy and Recurrent Left pleural effusion admitted for sepsis, Hypothermia , CHINTAN on CKD. Plan: Acute respiratory failure secondary to recurrent pleural effusions, improved - Most likely 2/2 nephrotic syndrome. - Currently saturating at 95% on room air - Bumetanide 1 mg PO daily - S/p therapuetic thoracocentesis w/ IR on 08/04; drained 1.2 L - DC'ed on 08/18 as per ID, Cefepime 1 gm IV daily (completed to Day 15) - C/w Chest PT Q4H via bed programming - Pulmonary recommendations for mucomyst, bronchodilator - ID Consult, Dr Dolan, recommendations appreciated - Completed 3 week course of PO Fluconazole from (07/25/17 - 08/15/17) - CXR 08/08: stable left pleural effusion, minimal right pleural effusion, no pneumothorax - CXR 08/15/2017: moderate left and trace right pleural effusions - CXR 08/22/2017: no change in moderate left pleural effusion and suspected loculated fluid in right major fissure. Underlying left lower lobe airspace disease cannot be excluded Hyperkalemia - K: 5.4 - kayexalate 15 gm PO ordered - f/u bmp Left Upper Extremity Pain - complained of pain yesterday, but no complaint today - still has triple lumen catheter, consider removal - patient refusing heparin, permitted heparin last night - full ROM, no masses, no cords - physical therapy evaluation and treatment ordered - monitor for acute changes Hypoglycemia - improved - blood glucose this morning 96 - Has been taking PO but inconsistently - DC'ed prandin and levemir - Continue correctional scale - Hypoglycemia precautions HTN due to CKD - preCHF: Echo 05/31/17 normal EF 60-65% - Continuing to improve but renal function gradually worsening as is expected as per Nephrology - Nephrology Consult, Dr Luz, recommendations appreciated: c/w ACEI, ARB, Cardiazem, Hydralazine, bumex - c/w losartan 50 mg PO daily, as per nephro Nephrotic Syndrome - Biopsy 06/05/17- nodular glomerulosclerosis/ ~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 - Renal duplex: no renal vein thrombosis - CKD stage 4: f/u Nephrology recommendations - As per nephrology: Secondary to severe diabetic nephropathy with nephrotic sydrome; renal function stable lately after resolution of ATN; repeat 24 hr urine protein with patient on aggressive KEVIN blockade, BP control and other hemodynamicaly mediated anti-proteinuric measures; still with ~9g proteinuria; will continue same management for now; no role for immunosuppressive therapy Anemia - Likely due to kidney disease and anemia of chronic disease - Hgb/Hct: 12.5/38.8 - EPO weekly on , held due to stable Hb, will resume if below 11 as per nephro Hypothyroidism - Last TSH 4.19 on 08/11/17 - Continue Synthroid 50 mcg PO daily Prolactinemia, improving - Last Prolactin: 27.1 on 07/19/17 - Will monitor DM type 2, with hypoglycemic episodes - Currently on prandin 2 mg PO TIDAC - correction scale - ACCUcheck ACHS - Hypoglycemia precautions - HbA1c: 5.7% History of Seizure - C/w Keppra 500mg, PO, Q12H - Neurology Consult, Dr Nicholas, recommendations appreciated: c/w Keppra, ASA held, signed off - Re-consulted neurology for seizure history and AMS - CT head 08/08: shows no intracranial bleed, no acute pathology, chronic ischemic changes - EEG: Normal awake and drowsy EEG. No focal slowing no seizure like activity was observed Depression - History of depression - Remeron 30 mg PO HS - Psych re-consulted for decision making capacity, recommendations appreciated: patient does not have capacity to make medical decisions at this time Deconditioning - PT/OT re-consulted for mobility assessment Diet - poor PO intake due disliking hospital food, will eat food brought to him from outside - speech/swallow eval re-consulted, recommendations appreciated: remain w/ finely chopped diet, with exceptions for bite sized portions for specific foods listed in consultation - tuna fish, grilled cheese, pancakes, Swedish toast, and penne pasta DVT prophylaxis - Heparin 5,000U, SC, Q12H, patient refuses at times Disposition - Pending social services manager regarding initiation for possible guardianship - Psych consult, Dr. Bird, recommendations appreciated: deemed to not have capacity to make medical decisions at this time line: triple lumen catheter, left subclavian
[2017-08-22] MEDS: Sod Polystyrene Sulf 15 gm/60 ml Susp PO ONE ×2 (15:59→16:39)
--- NOTE | 2017-08-22 23:49 | PN ---
ENDOCRINOLOGY FOLLOWUP NOTE DATE: LOCATION: Room 668. SUBJECTIVE: This is a 67-year-old male with recent uncontrolled type 2 insulin-requiring diabetes now being followed closely for metabolic management. His glycemic levels are much improved at this time and the glucose values have ranged from 96 to 171 mg/dL. His latest chemistry showed a BUN of 43, sodium 143, potassium 5.4, chloride 109, CO2 of 25, glucose 103 and creatinine 1.7. So at this time, we will continue the Prandin given as 2 mg p.o. t.i.d. before meals as ordered. We will titrate incrementally as indicated to optimize metabolic control. We will obtain serial chemistries and supplement accordingly needed. We will follow. Bettina Mann MD
[2017-08-23] MEDS ORDERED: Sod Polystyrene Sulf 15 gm/60 ml Susp PO ONE ×2 (00:15→09:38)
[2017-08-23] MEDS: Albuterol-Ipratrop 3 mg / 0.5 (3 ml) UD INH SCH ×4 (01:00→19:05)
[2017-08-23] MEDS: Levothyroxine 50 MCG TAB PO SCH (06:36)
[2017-08-23] MEDS: Acetylcysteine 20% Inhal Soln (4ml) INH SCH ×2 (07:45→19:05)
[2017-08-23 08:46] LABS: CALCIUM 8.2 mg/dL (8.4-10.2)
[2017-08-23] MEDS: Bacitracin OINT 15GM TOP SCH (09:00)
[2017-08-23] MEDS: Bacitracin 500 Units/gm Oint Foilpak UD TOP SCH ×3 (09:00→17:00)
--- NOTE | 2017-08-23 09:21 | CP.PCM.PN ---
Subjective - Date & Time of Evaluation Date of Evaluation: 08/23/17 Time of Evaluation: 08:30 - Subjective Subjective: Patient seen and examined at bedside. He is lying comfortably in bed in no acute distress. He is alert and oriented to person, place, and time. Patient reports mild right sided axillary pain w/ respiration. Patient blood glucose this morning 75. Objective - Vital Signs/Intake and Output Vital Signs (last 24 hours): Temp Pulse Resp BP Pulse Ox 98.3 F 88 20 142/71 97 08/23/17 08:18 08/23/17 08:18 08/23/17 08:18 08/23/17 08:18 08/23/17 08:18 - Medications Medications: Current Medications Acetylcysteine (Acetylcysteine 20%) 2 ml INH RBID [facility] Last Admin: 08/23/17 07:45 Dose: Not Given Albuterol/Ipratropium (Duoneb 3 Mg/0.5 Mg (3 Ml) Ud) 3 ml INH RQ6 [facility] Last Admin: 08/23/17 07:45 Dose: Not Given Amlodipine Besylate (Norvasc) 5 mg PO Q12H [facility] Last Admin: 08/22/17 21:07 Dose: 5 mg Bacitracin (Bacitracin Oint) 1 applic TOP DAILY [facility] Last Admin: 08/22/17 08:49 Dose: 1 applic Bacitracin (Bacitracin) 1 ea TOP TID [facility] Last Admin: 08/22/17 16:00 Dose: 1 ea Bumetanide (Bumex) 1 mg PO BID [facility] Last Admin: 08/22/17 16:01 Dose: 1 mg Dextrose (Dextrose 50% Inj) 0 ml IV STAT PRN; Protocol PRN Reason: Hypoglycemia Protocol Last Admin: 08/17/17 05:30 Dose: 50 ml Dextrose (Glutose 15) 0 gm PO ONCE PRN; Protocol PRN Reason: Hypoglycemia Protocol Dextrose (Dextrose 50% Inj) 0 ml IV STAT PRN; Protocol PRN Reason: Hypoglycemia Protocol Dextrose (Glutose 15) 0 gm PO ONCE PRN; Protocol PRN Reason: Hypoglycemia Protocol Diltiazem HCl (Cardizem Cd) 360 mg PO DAILY [facility] Last Admin: 08/22/17 08:48 Dose: 360 mg Glucagon (Glucagen Diagnostic Kit) 0 mg IM STAT PRN; Protocol PRN Reason: Hypoglycemia Protocol Glucagon (Glucagen Diagnostic Kit) 0 mg IM STAT PRN; Protocol PRN Reason: Hypoglycemia Protocol Heparin Sodium (Porcine) (Heparin) 5,000 units SC Q12 [facility] PRN Reason: Protocol Last Admin: 08/22/17 21:30 Dose: 5,000 units Hydralazine HCl (Apresoline) 50 mg PO TID [facility] Last Admin: 08/22/17 16:00 Dose: 50 mg Insulin Human Regular (Humulin R) 0 units SC ACHS [facility] PRN Reason: Protocol Last Admin: 08/22/17 22:55 Dose: Not Given Lactic Acid (Lac-Hydrin 12% Lotion (225 G)) 1 applic TOP TID [facility] Last Admin: 08/22/17 16:00 Dose: 1 applic Levetiracetam (Keppra) 500 mg PO Q12H [facility] Last Admin: 08/22/17 21:07 Dose: 500 mg Levothyroxine Sodium (Synthroid) 50 mcg PO DAILY@0630 [facility] Last Admin: 08/23/17 06:36 Dose: 50 mcg Lidocaine (Lidoderm) 2 ea TD DAILY [facility] Last Admin: 08/22/17 08:49 Dose: 2 ea Lisinopril (Zestril) 40 mg PO DAILY [facility] Last Admin: 08/22/17 08:47 Dose: 40 mg Lorazepam (Ativan) 2 mg IVP Q6 PRN PRN Reason: Seizure activity Losartan Potassium (Cozaar) 50 mg PO DAILY [facility] Last Admin: 08/22/17 08:49 Dose: 50 mg Mirtazapine (Remeron) 30 mg PO HS [facility] Last Admin: 08/22/17 21:07 Dose: 30 mg Ondansetron HCl (Zofran Inj) 4 mg IVP Q6 PRN PRN Reason: Nausea/Vomiting Repaglinide (Prandin) 2 mg PO TIDAC [facility] Last Admin: 08/22/17 16:00 Dose: 2 mg Spironolactone (Aldactone) 25 mg PO BID [facility] Last Admin: 08/14/17 16:38 Dose: 25 mg Thiamine HCl (Vitamin B1 Tab) 100 mg PO DAILY [facility] Last Admin: 08/22/17 08:50 Dose: 100 mg - Labs Labs: 08/22/17 05:00 08/23/17 07:20 PT 15.3 Seconds (9.8-13.1) H 07/18/17 05:30 INR 1.4 (0.9-1.2) H 07/18/17 05:30 APTT 34.2 Seconds (25.6-37.1) 07/18/17 05:30 - Constitutional Appears: No Acute Distress - Head Exam Head Exam: ATRAUMATIC, NORMAL INSPECTION, NORMOCEPHALIC - Eye Exam Eye Exam: Normal appearance - ENT Exam ENT Exam: Mucous Membranes Moist - Neck Exam Neck Exam: Full ROM. absent: Tenderness - Respiratory Exam Respiratory Exam: Rales. absent: Rhonchi, Wheezes, Respiratory Distress Additional comments: mild bibasilar crackles, speaking in full sentences, no respiratory distress - Cardiovascular Exam Cardiovascular Exam: REGULAR RHYTHM. absent: Tachycardia Additional comments: systolic murmur - GI/Abdominal Exam GI & Abdominal Exam: Soft, Normal Bowel Sounds. absent: Distended, Tenderness - Extremities Exam Extremities Exam: absent: Calf Tenderness, Pedal Edema, Tenderness - Neurological Exam Neurological Exam: Alert, Awake, Oriented x3 - Skin Skin Exam: Dry Assessment and Plan - Assessment and Plan (Free Text) Assessment: 66 y/o M with PMH including HTN, DM2, Diabetic nephropathy, Monoclonal gammopathy and Recurrent Left pleural effusion admitted for sepsis, Hypothermia , CHINTAN on CKD. Plan: Acute respiratory failure secondary to recurrent pleural effusions, improved - Most likely 2/2 nephrotic syndrome. - Currently saturating at 95% on room air - Bumetanide 1 mg PO daily - S/p therapuetic thoracocentesis w/ IR on 08/04; drained 1.2 L - DC'ed on 08/18 as per ID, Cefepime 1 gm IV daily (completed to Day 15) - C/w Chest PT Q4H via bed programming - Pulmonary recommendations for mucomyst, bronchodilator - ID Consult, Dr Dolan, recommendations appreciated - Completed 3 week course of PO Fluconazole from (07/25/17 - 08/15/17) - CXR 08/08: stable left pleural effusion, minimal right pleural effusion, no pneumothorax - CXR 08/15/2017: moderate left and trace right pleural effusions - CXR 08/22/2017: no change in moderate left pleural effusion and suspected loculated fluid in right major fissure. Underlying left lower lobe airspace disease cannot be excluded Hyperkalemia - K: 5.9 - losartan held until K+ normalizes - kayexalate 15 gm PO ordered - florinef 0.1 mg daily - forced diuresis w/ IVF NS 1L @75 mL/hr and lasix 20 mg - restrict K+ in diet - f/u EKG - f/u bmp Left Upper Extremity Pain - improved - complained of pain yesterday, but no complaint today - full ROM, no masses, no cords - physical therapy consulted, recommendations appreciated - monitor for acute changes Hypoglycemia - improved - blood glucose this morning 75 - Has been taking PO but inconsistently - on prandin 2 mg PO TIDAC - DC'ed levemir - Continue correctional scale - Hypoglycemia precautions HTN due to CKD - preCHF: Echo 05/31/17 normal EF 60-65% - Continuing to improve but renal function gradually worsening as is expected as per Nephrology - Nephrology Consult, Dr Luz, recommendations appreciated: c/w ACEI, ARB, Cardiazem, Hydralazine, bumex - c/w losartan 50 mg PO daily, as per nephro Nephrotic Syndrome - Biopsy 06/05/17- nodular glomerulosclerosis/ ~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 - Renal duplex: no renal vein thrombosis - CKD stage 4: f/u Nephrology recommendations - As per nephrology: Secondary to severe diabetic nephropathy with nephrotic sydrome; renal function stable lately after resolution of ATN; repeat 24 hr urine protein with patient on aggressive KEVIN blockade, BP control and other hemodynamicaly mediated anti-proteinuric measures; still with ~9g proteinuria; will continue same management for now; no role for immunosuppressive therapy Anemia - Likely due to kidney disease and anemia of chronic disease - Hgb/Hct: 12.5/38.8 - EPO weekly on , held due to stable Hb, will resume if below 11 as per nephro Hypothyroidism - Last TSH 4.19 on 08/11/17 - Continue Synthroid 50 mcg PO daily Prolactinemia, improving - Last Prolactin: 27.1 on 07/19/17 - Will monitor DM type 2, with hypoglycemic episodes - on prandin 2 mg PO TIDAC - correction scale - ACCUcheck ACHS - Hypoglycemia precautions - HbA1c: 5.7% History of Seizure - C/w Keppra 500mg, PO, Q12H - Neurology Consult, Dr Nicholas, recommendations appreciated: c/w Keppra, ASA held, signed off - Re-consulted neurology for seizure history and AMS - CT head 08/08: shows no intracranial bleed, no acute pathology, chronic ischemic changes - EEG: Normal awake and drowsy EEG. No focal slowing no seizure like activity was observed Depression - History of depression - Remeron 30 mg PO HS - Psych re-consulted for decision making capacity, recommendations appreciated: patient does not have capacity to make medical decisions at this time Deconditioning - PT/OT re-consulted for mobility assessment Diet - poor PO intake due disliking hospital food, will eat food brought to him from outside - speech/swallow eval re-consulted, recommendations appreciated: remain w/ finely chopped diet, with exceptions for bite sized portions for specific foods listed in consultation - tuna fish, grilled cheese, pancakes, [place]riot toast, and penne pasta DVT prophylaxis - Heparin 5,000U, SC, Q12H, patient refuses at times Disposition - Pending director social regarding initiation for possible guardianship - Psych consult, Dr. Bird, recommendations appreciated: deemed to not have capacity to make medical decisions at this time line: triple lumen catheter, left subclavian
[2017-08-23] MEDS: diltiaZEM 180 mg/24 Hours CD Cap PO SCH (09:36)
[2017-08-23] MEDS: Insulin Regular 100 units/ml SC SCH ×4 (09:37→22:00)
[2017-08-23] MEDS: Lidocaine 5% Patch TD SCH (09:38)
[2017-08-23] MEDS ORDERED: Sodium Chloride 0.9% 1,000 ML IV SCH (09:45)
--- NOTE | 2017-08-23 11:22 | CP.PCM.PN ---
Subjective - Date & Time of Evaluation Date of Evaluation: 08/23/17 Time of Evaluation: 11:20 - Subjective Subjective: Patient denies any shortness of breath; is in chair, hasn't ambulated today; has a bag of half empty plantains at bedside, doesn't know who brought it there; Objective - Vital Signs/Intake and Output Vital Signs (last 24 hours): Temp Pulse Resp BP Pulse Ox 98.3 F 88 20 142/71 97 08/23/17 08:18 08/23/17 09:40 08/23/17 08:18 08/23/17 09:40 08/23/17 08:18 - Medications Medications: Current Medications Acetylcysteine (Acetylcysteine 20%) 2 ml INH RBID [facility] Last Admin: 08/23/17 07:45 Dose: Not Given Albuterol/Ipratropium (Duoneb 3 Mg/0.5 Mg (3 Ml) Ud) 3 ml INH RQ6 [facility] Last Admin: 08/23/17 07:45 Dose: Not Given Amlodipine Besylate (Norvasc) 5 mg PO Q12H [facility] Last Admin: 08/23/17 09:39 Dose: 5 mg Bacitracin (Bacitracin Oint) 1 applic TOP DAILY [facility] Last Admin: 08/22/17 08:49 Dose: 1 applic Bacitracin (Bacitracin) 1 ea TOP TID [facility] Last Admin: 08/22/17 16:00 Dose: 1 ea Bumetanide (Bumex) 1 mg PO BID [facility] Last Admin: 08/23/17 09:34 Dose: 1 mg Dextrose (Dextrose 50% Inj) 0 ml IV STAT PRN; Protocol PRN Reason: Hypoglycemia Protocol Last Admin: 08/17/17 05:30 Dose: 50 ml Dextrose (Glutose 15) 0 gm PO ONCE PRN; Protocol PRN Reason: Hypoglycemia Protocol Dextrose (Dextrose 50% Inj) 0 ml IV STAT PRN; Protocol PRN Reason: Hypoglycemia Protocol Dextrose (Glutose 15) 0 gm PO ONCE PRN; Protocol PRN Reason: Hypoglycemia Protocol Diltiazem HCl (Cardizem Cd) 360 mg PO DAILY [facility] Last Admin: 08/23/17 09:36 Dose: 360 mg Fludrocortisone Acetate (Florinef) 0.1 mg PO DAILY [facility] Furosemide (Lasix) 20 mg IVP ONCE ONE Stop: 08/23/17 14:01 Glucagon (Glucagen Diagnostic Kit) 0 mg IM STAT PRN; Protocol PRN Reason: Hypoglycemia Protocol Glucagon (Glucagen Diagnostic Kit) 0 mg IM STAT PRN; Protocol PRN Reason: Hypoglycemia Protocol Heparin Sodium (Porcine) (Heparin) 5,000 units SC Q12 [facility] PRN Reason: Protocol Last Admin: 08/23/17 09:37 Dose: 5,000 units Hydralazine HCl (Apresoline) 50 mg PO TID [facility] Last Admin: 08/23/17 09:35 Dose: 50 mg Sodium Chloride (Sodium Chloride 0.9%) 1,000 mls @ 75 mls/hr IV .[id number] [facility] Stop: 08/23/17 23:04 Insulin Human Regular (Humulin R) 0 units SC ACHS [facility] PRN Reason: Protocol Lactic Acid (Lac-Hydrin 12% Lotion (225 G)) 1 applic TOP TID [facility] Last Admin: 08/22/17 16:00 Dose: 1 applic Levetiracetam (Keppra) 500 mg PO Q12H [facility] Levothyroxine Sodium (Synthroid) 50 mcg PO DAILY@0630 [facility] Last Admin: 08/23/17 06:36 Dose: 50 mcg Lidocaine (Lidoderm) 2 ea TD DAILY [facility] Last Admin: 08/23/17 09:38 Dose: 2 ea Lisinopril (Zestril) 40 mg PO DAILY [facility] Last Admin: 08/23/17 09:40 Dose: 40 mg Lorazepam (Ativan) 2 mg IVP Q6 PRN PRN Reason: Seizure activity Losartan Potassium (Cozaar) 50 mg PO DAILY [facility] Last Admin: 08/23/17 09:36 Dose: 50 mg Mirtazapine (Remeron) 30 mg PO HS [facility] Last Admin: 08/22/17 21:07 Dose: 30 mg Ondansetron HCl (Zofran Inj) 4 mg IVP Q6 PRN PRN Reason: Nausea/Vomiting Repaglinide (Prandin) 2 mg PO TIDAC [facility] Last Admin: 08/23/17 09:39 Dose: 2 mg Spironolactone (Aldactone) 25 mg PO BID [facility] Last Admin: 08/14/17 16:38 Dose: 25 mg Thiamine HCl (Vitamin B1 Tab) 100 mg PO DAILY [facility] Last Admin: 08/23/17 09:39 Dose: 100 mg - Labs Labs: 08/22/17 05:00 08/23/17 07:20 PT 15.3 Seconds (9.8-13.1) H 07/18/17 05:30 INR 1.4 (0.9-1.2) H 07/18/17 05:30 APTT 34.2 Seconds (25.6-37.1) 07/18/17 05:30 - Constitutional Appears: Non-toxic, No Acute Distress - Eye Exam Eye Exam: absent: Scleral icterus - ENT Exam ENT Exam: Mucous Membranes Moist - Respiratory Exam Respiratory Exam: absent: Respiratory Distress Additional comments: Markedly decreased breath sounds at bases L > R; - Cardiovascular Exam Cardiovascular Exam: RRR, +S1, +S2 - GI/Abdominal Exam GI & Abdominal Exam: Soft. absent: Distended, Tenderness - Extremities Exam Additional comments: trace leg edema; - Neurological Exam Neurological Exam: Alert, Awake - Psychiatric Exam Psychiatric exam: Normal Mood. absent: Agitated - Skin Skin Exam: Warm. absent: Cyanosis Assessment and Plan (1) Hyperkalemia Assessment & Plan: In the setting of patient being on aggressive KEVIN blockade due to severe nephrotic syndrome; patient also with dietary indescretion (has plantains and empty orange juice cup at bedside); -kayexate 15 g daily; there is a more palatable option (veltassa) but not yet on formulary here; -florinef 0.1 mg daily until hyperkalemia resolves; monitor volume status as this can cause Na retention; -starting 1L NS at 75 cc/hr; dose of IV lasix 20 mg this afternoon; continue bumex 1 mg PO bid; -patient counseled on need for dietary K restriction; discussed with nursing staff as well; Status: Acute (2) Chronic kidney disease, stage 3 (moderate) Assessment & Plan: Secondary to diabetic nephropathy with severe nephrotic syndrome; renal function currently at baseline and stable; -avoid potential nephrotoxic insults (NSAIDS, fleets phosphate enema); Status: Chronic (3) Acute renal failure Status: Resolved (4) Nephrotic syndrome Assessment & Plan: ~9 g proteinuria; benefit of dietary protein restriction is unclear; if hypoalbuminemia not improving, will recommend not to restrict dietary protein intake; Status: Chronic (5) Pleural effusion Assessment & Plan: Persistent bilateral effusions on exam but clinically patient asymptomatic; re- assess periodically for thoracentesis; Status: Chronic (6) Hypertensive CKD (chronic kidney disease) Assessment & Plan: BP control fluctuating; hydralazine dose just increased; continue rest of meds ( holding losartan temporarily until K improved); Status: Acute (7) Hypothermia Status: Acute (8) Altered mental status Status: Acute (9) SIRS (systemic inflammatory response syndrome) Status: Acute (10) Anemia Assessment & Plan: Hgb above goal, holding EPO; checking iron studies; Status: Chronic (11) Monoclonal gammopathy Status: Chronic (12) Hypernatremia Status: Acute
--- NOTE | 2017-08-23 12:03 | PN ---
DATE: ENDO FOLLOWUP NOTE LOCATION: Room 668. SUBJECTIVE: This is a 67-year-old male with recent uncontrolled type 2 diabetes now being followed closely for metabolic management. His oral intake is quite variable as per the nursing staff and his latest glucose levels have been fluctuating, ranging from 75-224 and 279 mg/dL. His latest chemistry showed BUN of 45, sodium of 145, potassium of 5.9, chloride of 112, CO2 of 26, glucose of 81, and creatinine of 1.6. So at this time, we will continue then the very low dose oral hypoglycemic therapy as given with Prandin given as 2 mg p.o. t.i.d. before meals as ordered. We will continue the low-dose correction scale using regular insulin as given. We will also continue the levothyroxine given as 50 mcg once daily as ordered. We will obtain serial thyroid studies and titrate his dose regimen accordingly. We will follow and advice accordingly. Bettina Mann MD
[2017-08-23] MEDS: levETIRAcetam 100 mg/ml (5ml) Oral Syringe PO SCH ×2 (15:05→21:49)
[2017-08-24] MEDS: Albuterol-Ipratrop 3 mg / 0.5 (3 ml) UD INH SCH ×4 (01:56→19:26)
[2017-08-24] MEDS: Levothyroxine 50 MCG TAB PO SCH (06:32)
[2017-08-24] MEDS: Acetylcysteine 20% Inhal Soln (4ml) INH SCH ×2 (07:11→19:26)
[2017-08-24 07:43] LABS: IRON 61 ug/dL (49-181)
[2017-08-24 07:46] LABS: ALB/GLOB RATIO 0.7 (1.0-2.1); ALBUMIN 2.4 g/dL (3.5-5.0); CALCIUM 8.1 mg/dL (8.4-10.2)
[2017-08-24 07:53] LABS: % IRON SATURATION 34 % (20-55); TOTAL IRON BINDING CAPACITY 176 ug/dL (250-450)
[2017-08-24] MEDS: Insulin Regular 100 units/ml SC SCH ×4 (09:44→22:25)
[2017-08-24] MEDS: Bacitracin OINT 15GM TOP SCH (09:45)
[2017-08-24] MEDS: levETIRAcetam 100 mg/ml (5ml) Oral Syringe PO SCH ×2 (09:45→22:20)
[2017-08-24] MEDS: Lidocaine 5% Patch TD SCH (09:47)
[2017-08-24] MEDS: diltiaZEM 180 mg/24 Hours CD Cap PO SCH (09:49)
[2017-08-24] MEDS: Bacitracin 500 Units/gm Oint Foilpak UD TOP SCH ×3 (09:49→17:21)
--- NOTE | 2017-08-24 10:04 | CP.PCM.PN ---
Subjective - Date & Time of Evaluation Date of Evaluation: 08/24/17 Time of Evaluation: :25 - Subjective Subjective: Patient seen and examined at bedside. Awake,alert, cooperative with exam, follows commands. No acute events overnight. Tolerating PO diet. Objective - Vital Signs/Intake and Output Vital Signs (last 24 hours): Temp Pulse Resp BP Pulse Ox 98.2 F 83 20 156/70 H 96 08/24/17 08:17 08/24/17 09:51 08/24/17 08:17 08/24/17 09:51 08/24/17 08:17 - Medications Medications: Current Medications Acetylcysteine (Acetylcysteine 20%) 2 ml INH RBID [facility] Last Admin: 08/24/17 07:11 Dose: Not Given Albuterol/Ipratropium (Duoneb 3 Mg/0.5 Mg (3 Ml) Ud) 3 ml INH RQ6 [facility] Last Admin: 08/24/17 07:11 Dose: Not Given Amlodipine Besylate (Norvasc) 5 mg PO Q12H [facility] Last Admin: 08/24/17 09:48 Dose: 5 mg Bacitracin (Bacitracin Oint) 1 applic TOP DAILY [facility] Last Admin: 08/24/17 09:45 Dose: 1 applic Bacitracin (Bacitracin) 1 ea TOP TID [facility] Last Admin: 08/24/17 09:49 Dose: 1 ea Bumetanide (Bumex) 1 mg PO BID [facility] Last Admin: 08/24/17 09:46 Dose: 1 mg Dextrose (Dextrose 50% Inj) 0 ml IV STAT PRN; Protocol PRN Reason: Hypoglycemia Protocol Last Admin: 08/17/17 05:30 Dose: 50 ml Dextrose (Glutose 15) 0 gm PO ONCE PRN; Protocol PRN Reason: Hypoglycemia Protocol Dextrose (Dextrose 50% Inj) 0 ml IV STAT PRN; Protocol PRN Reason: Hypoglycemia Protocol Dextrose (Glutose 15) 0 gm PO ONCE PRN; Protocol PRN Reason: Hypoglycemia Protocol Diltiazem HCl (Cardizem Cd) 360 mg PO DAILY [facility] Last Admin: 08/24/17 09:49 Dose: 360 mg Fludrocortisone Acetate (Florinef) 0.1 mg PO DAILY [facility] Last Admin: 08/23/17 11:41 Dose: 0.1 mg Glucagon (Glucagen Diagnostic Kit) 0 mg IM STAT PRN; Protocol PRN Reason: Hypoglycemia Protocol Glucagon (Glucagen Diagnostic Kit) 0 mg IM STAT PRN; Protocol PRN Reason: Hypoglycemia Protocol Heparin Sodium (Porcine) (Heparin) 5,000 units SC Q12 [facility] PRN Reason: Protocol Last Admin: 08/24/17 10:00 Dose: Not Given Hydralazine HCl (Apresoline) 50 mg PO TID [facility] Last Admin: 08/24/17 09:51 Dose: 50 mg Insulin Human Regular (Humulin R) 0 units SC ACHS [facility] PRN Reason: Protocol Last Admin: 08/24/17 09:44 Dose: Not Given Lactic Acid (Lac-Hydrin 12% Lotion (225 G)) 1 applic TOP TID [facility] Last Admin: 08/24/17 09:45 Dose: 1 applic Levetiracetam (Keppra) 500 mg PO Q12H [facility] Last Admin: 08/24/17 09:45 Dose: 500 mg Levothyroxine Sodium (Synthroid) 50 mcg PO DAILY@0630 [facility] Last Admin: 08/24/17 06:32 Dose: 50 mcg Lidocaine (Lidoderm) 2 ea TD DAILY [facility] Last Admin: 08/24/17 09:47 Dose: 2 ea Lisinopril (Zestril) 40 mg PO DAILY [facility] Last Admin: 08/24/17 09:46 Dose: 40 mg Lorazepam (Ativan) 2 mg IVP Q6 PRN PRN Reason: Seizure activity Losartan Potassium (Cozaar) 50 mg PO DAILY [facility] Last Admin: 08/23/17 09:36 Dose: 50 mg Mirtazapine (Remeron) 30 mg PO HS [facility] Last Admin: 08/23/17 21:36 Dose: 30 mg Ondansetron HCl (Zofran Inj) 4 mg IVP Q6 PRN PRN Reason: Nausea/Vomiting Repaglinide (Prandin) 2 mg PO TIDAC [facility] Last Admin: 08/24/17 09:46 Dose: 2 mg Spironolactone (Aldactone) 25 mg PO BID [facility] Last Admin: 08/14/17 16:38 Dose: 25 mg Thiamine HCl (Vitamin B1 Tab) 100 mg PO DAILY [facility] Last Admin: 08/24/17 09:48 Dose: 100 mg - Labs Labs: 08/22/17 05:00 08/24/17 05:20 PT 15.3 Seconds (9.8-13.1) H 07/18/17 05:30 INR 1.4 (0.9-1.2) H 07/18/17 05:30 APTT 34.2 Seconds (25.6-37.1) 07/18/17 05:30 - Constitutional Appears: Cachectic, Chronically Ill - Head Exam Head Exam: ATRAUMATIC, NORMOCEPHALIC - Eye Exam Eye Exam: EOMI - ENT Exam ENT Exam: Mucous Membranes Moist - Neck Exam Neck Exam: Full ROM Additional comments: left subclavian triple lumen catheter in place, dressing c/d/i - Respiratory Exam Respiratory Exam: Rales - Cardiovascular Exam Cardiovascular Exam: REGULAR RHYTHM - GI/Abdominal Exam GI & Abdominal Exam: Soft, Normal Bowel Sounds. absent: Distended, Tenderness - Extremities Exam Extremities Exam: Full ROM (bilateral LE darker skin discoloration). absent: Pedal Edema - Neurological Exam Neurological Exam: Alert, Awake, CN II-XII Intact - Psychiatric Exam Psychiatric exam: Normal Affect, Normal Mood - Skin Skin Exam: Dry, Normal Color, Warm Assessment and Plan - Assessment and Plan (Free Text) Assessment: 67 yr old M admitted for sepsis, Hypothermia, CHINTAN on CKD. Patient has uncontrolled hypertension, uncontrolled diabetes type 2, diabetic nephropathy, monoclonal gammopathy and recurrent Left pleural effusion. Plan: Acute respiratory failure secondary to recurrent pleural effusions, improved - Most likely 2/2 nephrotic syndrome. - Currently saturating at 96% on room air - continue Bumetanide 1 mg PO daily - S/p therapuetic thoracocentesis w/ IR on 08/04; drained 1.2 L - completed 15 days of Cefepime 1 gm IV daily-discontinued per ID - continue Chest PT Q4H via bed programming - Pulmonary recommendations for mucomyst, bronchodilator - ID Consult, Dr Dolan, recommendations appreciated - Completed 3 week course of PO Fluconazole from (07/25/17 - 08/15/17) - CXR 08/08: stable left pleural effusion, minimal right pleural effusion, no pneumothorax - CXR 08/15/2017: moderate left and trace right pleural effusions - CXR 08/22/2017: no change in moderate left pleural effusion and suspected loculated fluid in right major fissure. Underlying left lower lobe airspace disease cannot be excluded Hyperkalemia - improved , s/p IVF, kayexalate, lasix 20 mg once, florinef and held losartan, K: 5.0 this AM - resume Losartan tomorrow - discontinue florinef 0.1 mg daily after today's dose - restrict K+ in diet - bmp wnl today Hypoglycemia - improved - blood glucose this morning 70 - inconsistent PO intake - on prandin 2 mg PO TIDAC - discontinued levemir - Continue correctional scale - Hypoglycemia precautions HTN due to CKD - chronic, uncontrolled -preCHF: Echo 05/31/17 normal EF 60-65% - Continuing to improve but renal function stable - Nephrology Consult, Dr Luz, recommendations appreciated: continue ACEI, ARB , Cardiazem, Hydralazine, bumex - losartan 50 mg PO daily, as per nephro Nephrotic Syndrome - Biopsy 06/05/17- nodular glomerulosclerosis/ ~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 - Renal duplex: no renal vein thrombosis - CKD stage 4: f/u Nephrology recommendations - As per nephrology: Secondary to severe diabetic nephropathy with nephrotic sydrome; renal function stable lately after resolution of ATN; repeat 24 hr urine protein with patient on aggressive KEVIN blockade, BP control and other hemodynamicaly mediated anti-proteinuric measures; still with ~9g proteinuria; will continue same management for now; no role for immunosuppressive therapy Anemia - Likely due to kidney disease and anemia of chronic disease - Hgb/Hct: 12.5/38.8, iron studies consistent with anemia of chronic disease - EPO held due to stable Hb, will resume weekly on if Hgb below 11 as per nephro Hypothyroidism -acute, stable - Last TSH 4.19 on 08/11/17 - Continue Synthroid 50 mcg PO daily -endocrinology on board: Dr Mann; will follow recommendations Prolactinemia, improving - Last Prolactin: 27.1 on 07/19/17 - f/u prolactin level DM type 2, with hypoglycemic episodes -chronic, controlled - on prandin 2 mg PO TIDAC - correction scale - ACCUcheck ACHS - Hypoglycemia precautions - HbA1c: 5.7% History of Seizure - chronic, controlled -continue Keppra 500mg PO Q12H - Neurology Consult, Dr Nicholas, recommendations appreciated: c/w Roseann, ASA held, signed off - Re-consulted neurology for seizure history and AMS - CT head 08/08: shows no intracranial bleed, no acute pathology, chronic ischemic changes - EEG: Normal awake and drowsy EEG. No focal slowing no seizure like activity was observed Depression -chronic, controlled - Remeron 30 mg PO HS - Psych re-consulted for decision making capacity, recommendations appreciated: patient does not have capacity to make medical decisions at this time Deconditioning - PT/OT re-consulted for mobility assessment Diet - poor PO intake due disliking hospital food, will eat food brought to him from outside - speech/swallow eval re-consulted, recommendations appreciated: remain w/ finely chopped diet, with exceptions for bite sized portions for specific foods listed in consultation - tuna fish, grilled cheese, pancakes, [place] toast, and penne pasta DVT prophylaxis - Heparin 5,000U, SC, Q12H, patient refuses intermittently Disposition - Pending hospital social worker regarding initiation for possible guardianship - Psych consult, Dr. Bird, recommendations appreciated: deemed to not have capacity to make medical decisions at this time line: triple lumen catheter, left subclavian
[2017-08-24] MEDS ORDERED: Sod Polystyrene Sulf 15 gm/60 ml Susp PO ONE (11:30)
--- NOTE | 2017-08-24 14:12 | PN ---
DATE: ENDOCRINOLOGY FOLLOWUP NOTE LOCATION: Room 661. SUBJECTIVE: This is a 66-year-old male with recent uncontrolled type 2 diabetes now being followed closely for metabolic management. His oral intake is quite variable at this time and developed low normal glycemic values overnight as noted. LABORATORY DATA: The repeat chemistries today showed a BUN of 43, sodium 145, potassium 5.0, chloride 108, CO2 27, glucose 51 and creatinine 1.5. His glucose levels this morning have ranged from 70-181 mg/dL. It was 99 at bedtime last night. PLAN: So for now, we will modify and lower the low-dose oral hypoglycemic therapy with Prandin to be given at 0.5 mg p.o. t.i.d. before meals as ordered. We will titrate incrementally as indicated to optimize metabolic control. We will follow and advise accordingly. Bettina Mann MD
[2017-08-25] MEDS: Albuterol-Ipratrop 3 mg / 0.5 (3 ml) UD INH SCH ×4 (01:08→19:40)
[2017-08-25] MEDS: Levothyroxine 50 MCG TAB PO SCH (06:32)
[2017-08-25 06:49] LABS: CALCIUM 8.2 mg/dL (8.4-10.2)
[2017-08-25] MEDS: Insulin Regular 100 units/ml SC SCH ×4 (06:57→21:57)
[2017-08-25] MEDS: Acetylcysteine 20% Inhal Soln (4ml) INH SCH ×2 (08:30→19:40)
[2017-08-25] MEDS: Sod Polystyrene Sulf 15 gm/60 ml Susp PO ONE ×2 (09:57→10:58)
[2017-08-25] MEDS: levETIRAcetam 100 mg/ml (5ml) Oral Syringe PO SCH ×3 (10:20→21:31)
[2017-08-25] MEDS: Lidocaine 5% Patch TD SCH (10:25)
[2017-08-25] MEDS: diltiaZEM 180 mg/24 Hours CD Cap PO SCH (10:36)
[2017-08-25] MEDS: Bacitracin OINT 15GM TOP SCH (10:36)
[2017-08-25] MEDS: Bacitracin 500 Units/gm Oint Foilpak UD TOP SCH ×3 (10:37→16:43)
--- NOTE | 2017-08-25 10:47 | CP.PCM.PN ---
Subjective - Date & Time of Evaluation Date of Evaluation: 08/25/17 Time of Evaluation: 07:35 - Subjective Subjective: Patient seen and examined at bedside. He is lying comfortably in bed in no acute distress. He is alert and oriented to person, place, and time. Patient reports bilateral arm ache, seen by physical therapy. Patient blood glucose this morning 80. Objective - Vital Signs/Intake and Output Vital Signs (last 24 hours): Temp Pulse Resp BP Pulse Ox 97.8 F 76 20 165/76 H 96 08/25/17 07:51 08/25/17 10:36 08/25/17 07:51 08/25/17 10:36 08/25/17 07:51 - Medications Medications: Current Medications Acetylcysteine (Acetylcysteine 20%) 2 ml INH RBID [facility] Last Admin: 08/25/17 08:30 Dose: Not Given Albuterol/Ipratropium (Duoneb 3 Mg/0.5 Mg (3 Ml) Ud) 3 ml INH RQ6 [facility] Last Admin: 08/25/17 08:30 Dose: Not Given Amlodipine Besylate (Norvasc) 5 mg PO Q12H [facility] Last Admin: 08/25/17 10:29 Dose: 5 mg Bacitracin (Bacitracin Oint) 1 applic TOP DAILY [facility] Last Admin: 08/25/17 10:36 Dose: 1 applic Bacitracin (Bacitracin) 1 ea TOP TID [facility] Last Admin: 08/25/17 10:37 Dose: 1 ea Bumetanide (Bumex) 1 mg PO BID [facility] Last Admin: 08/25/17 10:32 Dose: 1 mg Dextrose (Dextrose 50% Inj) 0 ml IV STAT PRN; Protocol PRN Reason: Hypoglycemia Protocol Last Admin: 08/17/17 05:30 Dose: 50 ml Dextrose (Glutose 15) 0 gm PO ONCE PRN; Protocol PRN Reason: Hypoglycemia Protocol Dextrose (Dextrose 50% Inj) 0 ml IV STAT PRN; Protocol PRN Reason: Hypoglycemia Protocol Dextrose (Glutose 15) 0 gm PO ONCE PRN; Protocol PRN Reason: Hypoglycemia Protocol Diltiazem HCl (Cardizem Cd) 360 mg PO DAILY [facility] Last Admin: 08/25/17 10:36 Dose: 360 mg Glucagon (Glucagen Diagnostic Kit) 0 mg IM STAT PRN; Protocol PRN Reason: Hypoglycemia Protocol Glucagon (Glucagen Diagnostic Kit) 0 mg IM STAT PRN; Protocol PRN Reason: Hypoglycemia Protocol Heparin Sodium (Porcine) (Heparin) 5,000 units SC Q12 [facility] PRN Reason: Protocol Last Admin: 08/25/17 10:38 Dose: Not Given Hydralazine HCl (Apresoline) 50 mg PO TID [facility] Last Admin: 08/25/17 10:31 Dose: 50 mg Insulin Human Regular (Humulin R) 0 units SC ACHS [facility] PRN Reason: Protocol Last Admin: 08/25/17 06:57 Dose: Not Given Lactic Acid (Lac-Hydrin 12% Lotion (225 G)) 1 applic TOP TID [facility] Last Admin: 08/25/17 10:28 Dose: 1 applic Levetiracetam (Keppra) 500 mg PO Q12H [facility] Last Admin: 08/25/17 10:29 Dose: 500 mg Levothyroxine Sodium (Synthroid) 50 mcg PO DAILY@0630 [facility] Last Admin: 08/25/17 06:32 Dose: 50 mcg Lidocaine (Lidoderm) 2 ea TD DAILY [facility] Last Admin: 08/25/17 10:25 Dose: 2 ea Lisinopril (Zestril) 40 mg PO DAILY [facility] Last Admin: 08/25/17 10:32 Dose: 40 mg Lorazepam (Ativan) 2 mg IVP Q6 PRN PRN Reason: Seizure activity Losartan Potassium (Cozaar) 50 mg PO DAILY [facility] Last Admin: 08/23/17 09:36 Dose: 50 mg Mirtazapine (Remeron) 30 mg PO HS [facility] Last Admin: 08/24/17 22:20 Dose: 30 mg Ondansetron HCl (Zofran Inj) 4 mg IVP Q6 PRN PRN Reason: Nausea/Vomiting Repaglinide (Prandin) 0.5 mg PO TIDAC [facility] Last Admin: 08/25/17 08:31 Dose: 0.5 mg Spironolactone (Aldactone) 25 mg PO BID [facility] Last Admin: 08/14/17 16:38 Dose: 25 mg Thiamine HCl (Vitamin B1 Tab) 100 mg PO DAILY [facility] Last Admin: 08/25/17 10:29 Dose: 100 mg - Labs Labs: 08/22/17 05:00 08/25/17 05:35 PT 15.3 Seconds (9.8-13.1) H 01/19/18 05:30 INR 1.4 (0.9-1.2) H 07/18/17 05:30 APTT 34.2 Seconds (25.6-37.1) 07/18/17 05:30 - Constitutional Appears: No Acute Distress, Chronically Ill - Head Exam Head Exam: ATRAUMATIC, NORMAL INSPECTION, NORMOCEPHALIC - Eye Exam Eye Exam: Normal appearance - ENT Exam ENT Exam: Mucous Membranes Moist - Neck Exam Neck Exam: Full ROM. absent: Tenderness Additional comments: left subclavian triple lumen catheter in place, dressing c/d/i - Respiratory Exam Respiratory Exam: Rales. absent: Decreased Breath Sounds, Rhonchi, Wheezes, Respiratory Distress Additional comments: mild bibasilar crackles, speaking in full sentences, no respiratory distress - Cardiovascular Exam Cardiovascular Exam: REGULAR RHYTHM. absent: Tachycardia Additional comments: systolic murmur - GI/Abdominal Exam GI & Abdominal Exam: Soft, Normal Bowel Sounds. absent: Distended, Tenderness - Extremities Exam Extremities Exam: absent: Calf Tenderness, Pedal Edema, Tenderness - Neurological Exam Neurological Exam: Alert, Awake, Oriented x3 - Skin Skin Exam: Dry Assessment and Plan - Assessment and Plan (Free Text) Assessment: 67 y/o M with PMH including HTN, DM2, Diabetic nephropathy, Monoclonal gammopathy and Recurrent Left pleural effusion admitted for sepsis, Hypothermia , CHINTAN on CKD. Plan: Acute respiratory failure secondary to recurrent pleural effusions, improved - Most likely 2/2 nephrotic syndrome. - Currently saturating at 96% on room air - Bumetanide 1 mg PO daily - S/p therapuetic thoracocentesis w/ IR on 08/04; drained 1.2 L - DC'ed on 08/18 as per ID, Cefepime 1 gm IV daily (completed to Day 15) - C/w Chest PT Q4H via bed programming - Pulmonary recommendations for mucomyst, bronchodilator - ID Consult, Dr Dolan, recommendations appreciated - Completed 3 week course of PO Fluconazole from (07/25/17 - 08/15/17) - CXR 08/08: stable left pleural effusion, minimal right pleural effusion, no pneumothorax - CXR 08/15/2017: moderate left and trace right pleural effusions - CXR 08/22/2017: no change in moderate left pleural effusion and suspected loculated fluid in right major fissure. Underlying left lower lobe airspace disease cannot be excluded Hyperkalemia - K: 5.2 - losartan held until K+ normalizes - kayexalate 15 gm PO ordered - restrict K+ in diet - EKG 08/23/2017: sinus rhythm with 1st degree AV block, no peaked T wave - f/u bmp Hypoglycemia - improved - blood glucose this morning 80 - Has been taking PO but inconsistently - start prandin 0.5 mg PO TIDAC - DC'ed levemir - Continue correctional scale - Hypoglycemia precautions HTN due to CKD - preCHF: Echo 05/31/17 normal EF 60-65% - Continuing to improve but renal function gradually worsening as is expected as per Nephrology - Nephrology Consult, Dr Luz, recommendations appreciated: c/w ACEI, ARB, Cardiazem, Hydralazine, bumex - c/w losartan 50 mg PO daily, as per nephro Nephrotic Syndrome - Biopsy 06/05/17- nodular glomerulosclerosis/ ~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 - Renal duplex: no renal vein thrombosis - CKD stage 4: f/u Nephrology recommendations - As per nephrology: Secondary to severe diabetic nephropathy with nephrotic sydrome; renal function stable lately after resolution of ATN; repeat 24 hr urine protein with patient on aggressive KEVIN blockade, BP control and other hemodynamicaly mediated anti-proteinuric measures; still with ~9g proteinuria; will continue same management for now; no role for immunosuppressive therapy Anemia - Likely due to kidney disease and anemia of chronic disease - Hgb/Hct: 12.5/38.8 - EPO weekly on , held due to stable Hb, will resume if below 11 as per nephro Hypothyroidism - Last TSH 4.19 on 08/11/17 - Continue Synthroid 50 mcg PO daily Prolactinemia, improving - Last Prolactin: 27.1 on 07/19/17 - Will monitor DM type 2, with hypoglycemic episodes - start prandin 0.5 mg PO TIDAC - correction scale - ACCUcheck ACHS - Hypoglycemia precautions - HbA1c: 5.7% History of Seizure - C/w Keppra 500mg, PO, Q12H - Neurology Consult, Dr Nicholas, recommendations appreciated: c/w Keppra, ASA held, signed off - Re-consulted neurology for seizure history and AMS - CT head 08/08: shows no intracranial bleed, no acute pathology, chronic ischemic changes - EEG: Normal awake and drowsy EEG. No focal slowing no seizure like activity was observed Depression - History of depression - Remeron 30 mg PO HS - Psych re-consulted for decision making capacity, recommendations appreciated: patient does not have capacity to make medical decisions at this time Deconditioning - PT/OT re-consulted for mobility assessment Diet - poor PO intake due disliking hospital food, will eat food brought to him from outside - speech/swallow eval re-consulted, recommendations appreciated: remain w/ finely chopped diet, with exceptions for bite sized portions for specific foods listed in consultation - tuna fish, grilled cheese, pancakes, Romanian toast, and penne pasta DVT prophylaxis - Heparin 5,000U, SC, Q12H, patient refuses at times Disposition - Pending social media content specialist regarding initiation for possible guardianship - Psych consult, Dr. Bird, recommendations appreciated: deemed to not have capacity to make medical decisions at this time line: triple lumen catheter, left subclavian
[2017-08-25 12:37] LABS: PROLACTIN 16.6 ng/mL (3.7-17.9)
--- NOTE | 2017-08-25 15:23 | PN ---
DATE: ENDO FOLLOWUP NOTE LOCATION: Room 661. SUBJECTIVE: This is a 66-year-old male with recent uncontrolled type 2 diabetes who continues to have variable oral intake with suboptimal meal portions and supervening low normal glycemic profiles episodically as noted thereof. His latest glucose levels have ranged from 80-107 and 163 mg/dL. The latest chemistry showed BUN of 42, sodium of 145, potassium of 5.2, chloride of 107, CO2 of 28, glucose of 78, and creatinine of 1.7. So at this time, we will lower his oral hypoglycemic therapy as ordered with Prandin to be given as 0.5 mg p.o. t.i.d. before meals as ordered. We will titrate incrementally as indicated to optimize metabolic control. We will obtain serial chemistries and supplement accordingly as needed. We will follow. Bettina Mann MD
[2017-08-25] MEDS ORDERED: Sod Polystyrene Sulf 15 gm/60 ml Susp PO ONE ×2 (18:34→23:39)
--- NOTE | 2017-08-25 21:24 | CARD ---
APPROVED REPORT EKG Measurement Heart [id number] <Conclusion> Sinus rhythm with 1st degree AV block Otherwise normal ECG
[2017-08-26] MEDS: Albuterol-Ipratrop 3 mg / 0.5 (3 ml) UD INH SCH ×4 (01:08→19:40)
[2017-08-26] MEDS: Levothyroxine 50 MCG TAB PO SCH (06:19)
[2017-08-26] MEDS: Insulin Regular 100 units/ml SC SCH ×4 (06:45→22:57)
[2017-08-26] MEDS: Acetylcysteine 20% Inhal Soln (4ml) INH SCH ×2 (07:30→19:40)
--- NOTE | 2017-08-26 08:33 | CP.PCM.PN ---
Subjective - Date & Time of Evaluation Date of Evaluation: 08/26/17 Time of Evaluation: 07:25 - Subjective Subjective: Patient seen and examined at bedside. He is lying comfortably in bed in no acute distress. Patient had general body pain last night relieved w/ tylenol. He is alert and oriented to person, place, and time. Patient reports denies pain this morning. Patient blood glucose this morning 89. Objective - Vital Signs/Intake and Output Vital Signs (last 24 hours): Temp Pulse Resp BP Pulse Ox 97.4 F L 82 18 148/68 97 08/26/17 07:56 08/26/17 07:56 08/26/17 07:56 08/26/17 07:56 08/26/17 07:56 - Medications Medications: Current Medications Acetylcysteine (Acetylcysteine 20%) 2 ml INH RBID [facility] Last Admin: 08/26/17 07:30 Dose: 2 ml Albuterol/Ipratropium (Duoneb 3 Mg/0.5 Mg (3 Ml) Ud) 3 ml INH RQ6 [facility] Last Admin: 08/26/17 07:30 Dose: 3 ml Amlodipine Besylate (Norvasc) 5 mg PO Q12H [facility] Last Admin: 08/25/17 21:28 Dose: 5 mg Bacitracin (Bacitracin Oint) 1 applic TOP DAILY [facility] Last Admin: 08/25/17 10:36 Dose: 1 applic Bacitracin (Bacitracin) 1 ea TOP TID [facility] Last Admin: 08/25/17 16:43 Dose: 1 ea Bumetanide (Bumex) 1 mg PO BID [facility] Last Admin: 08/25/17 18:50 Dose: 1 mg Calcitriol (Rocaltrol) 0.25 mcg PO MWF [facility] Dextrose (Dextrose 50% Inj) 0 ml IV STAT PRN; Protocol PRN Reason: Hypoglycemia Protocol Last Admin: 08/17/17 05:30 Dose: 50 ml Dextrose (Glutose 15) 0 gm PO ONCE PRN; Protocol PRN Reason: Hypoglycemia Protocol Dextrose (Dextrose 50% Inj) 0 ml IV STAT PRN; Protocol PRN Reason: Hypoglycemia Protocol Dextrose (Glutose 15) 0 gm PO ONCE PRN; Protocol PRN Reason: Hypoglycemia Protocol Diltiazem HCl (Cardizem Cd) 360 mg PO DAILY [facility] Last Admin: 08/25/17 10:36 Dose: 360 mg Ergocalciferol (Drisdol 50,000 Intl Units Cap) 1 cap PO Q7D [facility] Glucagon (Glucagen Diagnostic Kit) 0 mg IM STAT PRN; Protocol PRN Reason: Hypoglycemia Protocol Glucagon (Glucagen Diagnostic Kit) 0 mg IM STAT PRN; Protocol PRN Reason: Hypoglycemia Protocol Heparin Sodium (Porcine) (Heparin) 5,000 units SC Q12 [facility] PRN Reason: Protocol Last Admin: 08/25/17 21:31 Dose: 5,000 units Hydralazine HCl (Apresoline) 50 mg PO TID [facility] Last Admin: 08/25/17 16:45 Dose: 50 mg Insulin Human Regular (Humulin R) 0 units SC ACHS [facility] PRN Reason: Protocol Last Admin: 08/26/17 06:45 Dose: Not Given Lactic Acid (Lac-Hydrin 12% Lotion (225 G)) 1 applic TOP TID [facility] Last Admin: 08/25/17 16:37 Dose: 1 applic Levetiracetam (Keppra) 500 mg PO Q12H [facility] Last Admin: 08/25/17 21:31 Dose: 500 mg Levothyroxine Sodium (Synthroid) 50 mcg PO DAILY@0630 [facility] Last Admin: 08/26/17 06:19 Dose: 50 mcg Lidocaine (Lidoderm) 2 ea TD DAILY [facility] Last Admin: 08/25/17 10:25 Dose: 2 ea Lisinopril (Zestril) 40 mg PO DAILY [facility] Last Admin: 08/25/17 10:32 Dose: 40 mg Lorazepam (Ativan) 2 mg IVP Q6 PRN PRN Reason: Seizure activity Losartan Potassium (Cozaar) 50 mg PO DAILY [facility] Last Admin: 08/23/17 09:36 Dose: 50 mg Mirtazapine (Remeron) 30 mg PO HS [facility] Last Admin: 08/25/17 21:30 Dose: 30 mg Ondansetron HCl (Zofran Inj) 4 mg IVP Q6 PRN PRN Reason: Nausea/Vomiting Repaglinide (Prandin) 0.5 mg PO TIDAC [facility] Last Admin: 08/25/17 16:40 Dose: 0.5 mg Spironolactone (Aldactone) 25 mg PO BID [facility] Last Admin: 08/14/17 16:38 Dose: 25 mg Thiamine HCl (Vitamin B1 Tab) 100 mg PO DAILY [facility] Last Admin: 08/25/17 10:29 Dose: 100 mg - Labs Labs: 08/22/17 05:00 08/26/17 05:20 PT 15.3 Seconds (9.8-13.1) H 07/18/17 05:30 INR 1.4 (0.9-1.2) H 07/18/17 05:30 APTT 34.2 Seconds (25.6-37.1) 07/18/17 05:30 - Constitutional Appears: No Acute Distress, Chronically Ill - Head Exam Head Exam: ATRAUMATIC, NORMAL INSPECTION, NORMOCEPHALIC - Eye Exam Eye Exam: Normal appearance - ENT Exam ENT Exam: Mucous Membranes Moist - Neck Exam Neck Exam: Full ROM. absent: Tenderness Additional comments: left subclavian triple lumen catheter in place, dressing c/d/i - Respiratory Exam Respiratory Exam: Clear to Ausculation Bilateral, Rales. absent: Rhonchi, Wheezes, Respiratory Distress Additional comments: mild bibasilar crackles, speaking in full sentences, no respiratory distress - Cardiovascular Exam Cardiovascular Exam: REGULAR RHYTHM. absent: Tachycardia Additional comments: systolic murmur - GI/Abdominal Exam GI & Abdominal Exam: Soft, Normal Bowel Sounds. absent: Distended, Tenderness - Extremities Exam Extremities Exam: absent: Calf Tenderness, Pedal Edema, Tenderness - Neurological Exam Neurological Exam: Alert, Awake, Oriented x3 - Skin Skin Exam: Dry Assessment and Plan - Assessment and Plan (Free Text) Assessment: 67 y/o M with PMH including HTN, DM2, Diabetic nephropathy, Monoclonal gammopathy and Recurrent Left pleural effusion admitted for sepsis, Hypothermia , CHINTAN on CKD. Plan: Acute respiratory failure secondary to recurrent pleural effusions, improved - Most likely 2/2 nephrotic syndrome - Currently saturating at 97% on room air - Bumetanide 1 mg PO daily - C/w Chest PT Q4H via bed programming - Pulmonary recommendations for mucomyst, bronchodilator - ID Consult, Dr Dolan, recommendations appreciated - c/w weekly CXR on Fridays - CXR 08/22/2017: no change in moderate left pleural effusion and suspected loculated fluid in right major fissure. Underlying left lower lobe airspace disease cannot be excluded Hyperkalemia - K: 5.7 - losartan held until K+ normalizes - kayexalate 15 gm PO ordered - restrict K+ in diet - EKG 08/23/2017: sinus rhythm with 1st degree AV block, no peaked T wave - f/u bmp Hypoglycemia - improved - blood glucose this morning 80 - Has been taking PO but inconsistently - c/w prandin 0.5 mg PO TIDAC - DC'ed levemir - Continue correctional scale - Hypoglycemia precautions HTN due to CKD - preCHF: Echo 05/31/17 normal EF 60-65% - Continuing to improve but renal function gradually worsening as is expected as per Nephrology - Nephrology Consult, Dr Luz, recommendations appreciated: c/w ACEI, ARB, Cardiazem, Hydralazine, bumex - c/w losartan 50 mg PO daily, as per nephro Nephrotic Syndrome - Biopsy 06/05/17- nodular glomerulosclerosis/ ~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 - Renal duplex: no renal vein thrombosis - CKD stage 4: f/u Nephrology recommendations - As per nephrology: Secondary to severe diabetic nephropathy with nephrotic sydrome; renal function stable lately after resolution of ATN; repeat 24 hr urine protein with patient on aggressive KEVIN blockade, BP control and other hemodynamicaly mediated anti-proteinuric measures; still with ~9g proteinuria; will continue same management for now; no role for immunosuppressive therapy Anemia - Likely due to kidney disease and anemia of chronic disease - Hgb/Hct: 12.5/38.8 - EPO weekly on , held due to stable Hb, will resume if below 11 as per nephro Hypothyroidism - Last TSH 4.19 on 08/11/17 - Continue Synthroid 50 mcg PO daily Prolactinemia, improving - Last Prolactin: 27.1 on 07/19/17 - Will monitor DM type 2, with hypoglycemic episodes - c/w prandin 0.5 mg PO TIDAC - correction scale - ACCUcheck ACHS - Hypoglycemia precautions - HbA1c: 5.7% History of Seizure - C/w Keppra 500mg, PO, Q12H - Neurology Consult, Dr Nicholas, recommendations appreciated: c/w Adrianara, ASA held, signed off - Re-consulted neurology for seizure history and AMS - CT head 08/08: shows no intracranial bleed, no acute pathology, chronic ischemic changes - EEG: Normal awake and drowsy EEG. No focal slowing no seizure like activity was observed Depression - History of depression - Remeron 30 mg PO HS - Psych re-consulted for decision making capacity, recommendations appreciated: patient does not have capacity to make medical decisions at this time Deconditioning - PT/OT re-consulted for mobility assessment Diet - poor PO intake due disliking hospital food, will eat food brought to him from outside - speech/swallow eval re-consulted, recommendations appreciated: remain w/ finely chopped diet, with exceptions for bite sized portions for specific foods listed in consultation - tuna fish, grilled cheese, pancakes, Portuguese toast, and penne pasta DVT prophylaxis - Heparin 5,000U, SC, Q12H, patient refuses at times Disposition - Pending social work professor regarding initiation for possible guardianship - Psych consult, Dr. Bird, recommendations appreciated: deemed to not have capacity to make medical decisions at this time line: triple lumen catheter, left subclavian
[2017-08-26] MEDS ORDERED: Sod Polystyrene Sulf 15 gm/60 ml Susp PO ONE (09:00)
[2017-08-26] MEDS: Bacitracin 500 Units/gm Oint Foilpak UD TOP SCH ×3 (10:16→16:53)
[2017-08-26] MEDS: levETIRAcetam 100 mg/ml (5ml) Oral Syringe PO SCH ×2 (10:50→21:51)
[2017-08-26] MEDS: Lidocaine 5% Patch TD SCH (11:08)
[2017-08-26] MEDS: Bacitracin OINT 15GM TOP SCH (11:16)
[2017-08-26] MEDS: diltiaZEM 180 mg/24 Hours CD Cap PO SCH (11:17)
--- NOTE | 2017-08-26 18:42 | PN ---
ENDOCRINOLOGY FOLLOWUP NOTE DATE: LOCATION: In room 661. SUBJECTIVE: This is a -year-old male with recent uncontrolled type 2 diabetes, currently on low dose oral hypoglycemic therapy with persistent variability of his oral intake and suboptimal meal portions as noted. His glucose values are fluctuating, but improved and the levels overnight showed glucose levels of 89 to 119 and 175 mg/dL. His latest chemistry showed a BUN of 45, sodium 145, potassium 5.7, chloride 107, CO2 of 28, glucose 97 and creatinine 1.6. So at this time, we will continue the low dose Prandin given as 0.5 mg p.o. t.i.d. before meals as ordered. We will titrate incremental as indicated to optimize metabolic control. We will obtain serial chemistries and supplement accordingly needed. We will follow. Bettina Mann MD
--- NOTE | 2017-08-26 21:25 | CP.PCM.PN ---
Subjective - Date & Time of Evaluation Date of Evaluation: 08/26/17 Time of Evaluation: 21:20 - Subjective Subjective: Per house staff, patient not liking hospital food; concern for malnutrition with ~15 lb weight loss over past several weeks; patient reports eating well; denies shortness of breath; Objective - Vital Signs/Intake and Output Vital Signs (last 24 hours): Temp Pulse Resp BP Pulse Ox 98.2 F 83 19 163/76 H 95 08/26/17 16:29 08/26/17 16:58 08/26/17 16:29 08/26/17 16:58 08/26/17 16:29 - Medications Medications: Current Medications Acetylcysteine (Acetylcysteine 20%) 2 ml INH RBID [facility] Last Admin: 08/26/17 19:40 Dose: 2 ml Albuterol/Ipratropium (Duoneb 3 Mg/0.5 Mg (3 Ml) Ud) 3 ml INH RQ6 [facility] Last Admin: 08/26/17 19:40 Dose: 3 ml Amlodipine Besylate (Norvasc) 5 mg PO Q12H [facility] Last Admin: 08/26/17 11:08 Dose: 5 mg Bacitracin (Bacitracin Oint) 1 applic TOP DAILY [facility] Last Admin: 08/26/17 11:16 Dose: 1 applic Bacitracin (Bacitracin) 1 ea TOP TID [facility] Last Admin: 08/26/17 16:53 Dose: 1 ea Bumetanide (Bumex) 1 mg PO BID [facility] Last Admin: 08/26/17 17:04 Dose: 1 mg Calcitriol (Rocaltrol) 0.25 mcg PO MWF [facility] Chlorthalidone (Hygroton) 25 mg PO DAILY [facility] Dextrose (Dextrose 50% Inj) 0 ml IV STAT PRN; Protocol PRN Reason: Hypoglycemia Protocol Last Admin: 08/17/17 05:30 Dose: 50 ml Dextrose (Glutose 15) 0 gm PO ONCE PRN; Protocol PRN Reason: Hypoglycemia Protocol Dextrose (Dextrose 50% Inj) 0 ml IV STAT PRN; Protocol PRN Reason: Hypoglycemia Protocol Dextrose (Glutose 15) 0 gm PO ONCE PRN; Protocol PRN Reason: Hypoglycemia Protocol Diltiazem HCl (Cardizem Cd) 360 mg PO DAILY [facility] Last Admin: 08/26/17 11:17 Dose: 360 mg Ergocalciferol (Drisdol 50,000 Intl Units Cap) 1 cap PO Q7D [facility] Glucagon (Glucagen Diagnostic Kit) 0 mg IM STAT PRN; Protocol PRN Reason: Hypoglycemia Protocol Glucagon (Glucagen Diagnostic Kit) 0 mg IM STAT PRN; Protocol PRN Reason: Hypoglycemia Protocol Heparin Sodium (Porcine) (Heparin) 5,000 units SC Q12 [facility] PRN Reason: Protocol Last Admin: 08/26/17 10:25 Dose: Not Given Hydralazine HCl (Apresoline) 50 mg PO TID [facility] Last Admin: 08/26/17 16:58 Dose: 50 mg Insulin Human Regular (Humulin R) 0 units SC ACHS [facility] PRN Reason: Protocol Last Admin: 08/26/17 17:21 Dose: Not Given Lactic Acid (Lac-Hydrin 12% Lotion (225 G)) 1 applic TOP TID [facility] Last Admin: 08/26/17 16:49 Dose: 1 applic Levetiracetam (Keppra) 500 mg PO Q12H [facility] Last Admin: 08/26/17 10:50 Dose: Not Given Levothyroxine Sodium (Synthroid) 50 mcg PO DAILY@0630 [facility] Last Admin: 08/26/17 06:19 Dose: 50 mcg Lidocaine (Lidoderm) 2 ea TD DAILY [facility] Last Admin: 08/26/17 11:08 Dose: 2 ea Lisinopril (Zestril) 40 mg PO DAILY [facility] Last Admin: 08/26/17 11:06 Dose: 40 mg Lorazepam (Ativan) 2 mg IVP Q6 PRN PRN Reason: Seizure activity Losartan Potassium (Cozaar) 50 mg PO DAILY [facility] Last Admin: 08/23/17 09:36 Dose: 50 mg Mirtazapine (Remeron) 30 mg PO HS [facility] Last Admin: 08/25/17 21:30 Dose: 30 mg Ondansetron HCl (Zofran Inj) 4 mg IVP Q6 PRN PRN Reason: Nausea/Vomiting Repaglinide (Prandin) 0.5 mg PO TIDAC [facility] Last Admin: 08/26/17 17:00 Dose: 0.5 mg Spironolactone (Aldactone) 25 mg PO BID [facility] Last Admin: 08/14/17 16:38 Dose: 25 mg Thiamine HCl (Vitamin B1 Tab) 100 mg PO DAILY [facility] Last Admin: 08/26/17 11:10 Dose: 100 mg - Labs Labs: 08/22/17 05:00 08/26/17 05:20 PT 15.3 Seconds (9.8-13.1) H 07/18/17 05:30 INR 1.4 (0.9-1.2) H 07/18/17 05:30 APTT 34.2 Seconds (25.6-37.1) 07/18/17 05:30 - Constitutional Appears: Non-toxic, No Acute Distress - Eye Exam Eye Exam: absent: Scleral icterus - ENT Exam ENT Exam: Mucous Membranes Moist - Respiratory Exam Respiratory Exam: Clear to Ausculation Bilateral. absent: Respiratory Distress - Cardiovascular Exam Cardiovascular Exam: RRR Additional comments: systolic murmur - GI/Abdominal Exam GI & Abdominal Exam: Soft. absent: Distended, Tenderness - Exam Exam: absent: Bladder Distension - Extremities Exam Additional comments: minimal lower leg edema; - Neurological Exam Neurological Exam: Alert, Awake - Psychiatric Exam Psychiatric exam: Normal Affect. absent: Agitated - Skin Skin Exam: Warm. absent: Cyanosis Assessment and Plan (1) Hyperkalemia Assessment & Plan: Persistent despite low K diet but relatively stable; expected consequence of being on KEVIN blockade for nephrotic syndrome; -continue kayexalate 15 g daily; -will add thiazide diuretic for further kaliuresis; -will continue to hold losartan for now; -holding off on florinef unless hyperkalemia worsens (BP elevated, kayexalate itself is a significant sodium load); -monitor outside food for K content; Status: Acute (2) Malnutrition Assessment & Plan: With marked hypoalbuminemia in the setting of nephrotic syndrome; agree with letting patient eat what he desires with the exception of high potassium food; excess Na can be removed via additional diuresis (part of weight loss is due to diuresis which is our intent in order to prevent recurrence of pleural effusons) ; additionally, should not restrict protein content in this setting as the overall benefit in nephrotic syndrome is questionable; Status: Acute (3) Hypertensive CKD (chronic kidney disease) Assessment & Plan: BP elevated, likely due to excess Na load from being on daily kayexalate; adding chlorthalidone to diuretic regimen; continue rest of meds including both dihyropyridine and non-dihydropyridine CCB; avoid B-tamara as this can worsen hyperkalemia; Status: Acute (4) Chronic kidney disease, stage 3 (moderate) Assessment & Plan: Stable renal function; continue anti-proteinuric measures; will consider restarting losartan once K in a safe range; Status: Chronic (5) Acute renal failure Status: Resolved (6) Nephrotic syndrome Status: Chronic (7) Pleural effusion Status: Chronic (8) Hypothermia Status: Acute (9) Altered mental status Status: Acute (10) SIRS (systemic inflammatory response syndrome) Status: Acute (11) Anemia Status: Chronic (12) Monoclonal gammopathy Status: Chronic (13) Hypernatremia Status: Acute
[2017-08-27] MEDS: Albuterol-Ipratrop 3 mg / 0.5 (3 ml) UD INH SCH ×4 (01:00→20:02)
[2017-08-27] MEDS: Levothyroxine 50 MCG TAB PO SCH (06:34)
[2017-08-27] MEDS: Acetylcysteine 20% Inhal Soln (4ml) INH SCH ×2 (07:06→20:02)
--- NOTE | 2017-08-27 07:51 | CP.PCM.PN ---
Subjective - Date & Time of Evaluation Date of Evaluation: 08/27/17 Time of Evaluation: 07:15 - Subjective Subjective: Patient seen and examined at bedside. He is lying comfortably in bed in no acute distress. Patient reports cramping and weakness of the lower extremities bilaterally. Seen by physical therapy but refused services. He is alert and oriented to person, place, and time. Patient blood glucose this morning 225. Objective - Vital Signs/Intake and Output Vital Signs (last 24 hours): Temp Pulse Resp BP Pulse Ox 98.6 F 95 H 20 152/70 H 99 08/26/17 23:35 08/26/17 23:35 08/26/17 23:35 08/26/17 23:35 08/26/17 23:35 - Medications Medications: Current Medications Acetylcysteine (Acetylcysteine 20%) 2 ml INH RBID [facility] Last Admin: 08/27/17 07:06 Dose: Not Given Albuterol/Ipratropium (Duoneb 3 Mg/0.5 Mg (3 Ml) Ud) 3 ml INH RQ6 [facility] Last Admin: 08/27/17 07:06 Dose: Not Given Amlodipine Besylate (Norvasc) 5 mg PO Q12H [facility] Last Admin: 08/26/17 21:39 Dose: 5 mg Bacitracin (Bacitracin Oint) 1 applic TOP DAILY [facility] Last Admin: 08/26/17 11:16 Dose: 1 applic Bacitracin (Bacitracin) 1 ea TOP TID [facility] Last Admin: 08/26/17 16:53 Dose: 1 ea Bumetanide (Bumex) 1 mg PO BID [facility] Last Admin: 08/26/17 17:04 Dose: 1 mg Calcitriol (Rocaltrol) 0.25 mcg PO MWF [facility] Chlorthalidone (Hygroton) 25 mg PO DAILY [facility] Dextrose (Dextrose 50% Inj) 0 ml IV STAT PRN; Protocol PRN Reason: Hypoglycemia Protocol Last Admin: 08/17/17 05:30 Dose: 50 ml Dextrose (Glutose 15) 0 gm PO ONCE PRN; Protocol PRN Reason: Hypoglycemia Protocol Dextrose (Dextrose 50% Inj) 0 ml IV STAT PRN; Protocol PRN Reason: Hypoglycemia Protocol Dextrose (Glutose 15) 0 gm PO ONCE PRN; Protocol PRN Reason: Hypoglycemia Protocol Diltiazem HCl (Cardizem Cd) 360 mg PO DAILY [facility] Last Admin: 08/26/17 11:17 Dose: 360 mg Ergocalciferol (Drisdol 50,000 Intl Units Cap) 1 cap PO Q7D [facility] Glucagon (Glucagen Diagnostic Kit) 0 mg IM STAT PRN; Protocol PRN Reason: Hypoglycemia Protocol Glucagon (Glucagen Diagnostic Kit) 0 mg IM STAT PRN; Protocol PRN Reason: Hypoglycemia Protocol Heparin Sodium (Porcine) (Heparin) 5,000 units SC Q12 [facility] PRN Reason: Protocol Last Admin: 08/26/17 21:38 Dose: Not Given Hydralazine HCl (Apresoline) 50 mg PO TID [facility] Last Admin: 08/26/17 16:58 Dose: 50 mg Hydrochlorothiazide (Microzide) 12.5 mg PO ONCE ONE Stop: 08/27/17 21:36 Insulin Human Regular (Humulin R) 0 units SC ACHS [facility] PRN Reason: Protocol Last Admin: 08/26/17 22:57 Dose: Not Given Lactic Acid (Lac-Hydrin 12% Lotion (225 G)) 1 applic TOP TID [facility] Last Admin: 08/26/17 16:49 Dose: 1 applic Levetiracetam (Keppra) 500 mg PO Q12H [facility] Last Admin: 08/26/17 21:51 Dose: 500 mg Levothyroxine Sodium (Synthroid) 50 mcg PO DAILY@0630 [facility] Last Admin: 08/27/17 06:34 Dose: 50 mcg Lidocaine (Lidoderm) 2 ea TD DAILY [facility] Last Admin: 08/26/17 11:08 Dose: 2 ea Lisinopril (Zestril) 40 mg PO DAILY [facility] Last Admin: 08/26/17 11:06 Dose: 40 mg Lorazepam (Ativan) 2 mg IVP Q6 PRN PRN Reason: Seizure activity Losartan Potassium (Cozaar) 50 mg PO DAILY [facility] Last Admin: 08/23/17 09:36 Dose: 50 mg Mirtazapine (Remeron) 30 mg PO HS [facility] Last Admin: 08/26/17 21:39 Dose: 30 mg Ondansetron HCl (Zofran Inj) 4 mg IVP Q6 PRN PRN Reason: Nausea/Vomiting Repaglinide (Prandin) 0.5 mg PO TIDAC [facility] Last Admin: 08/26/17 17:00 Dose: 0.5 mg Spironolactone (Aldactone) 25 mg PO BID [facility] Last Admin: 08/14/17 16:38 Dose: 25 mg Thiamine HCl (Vitamin B1 Tab) 100 mg PO DAILY [facility] Last Admin: 08/26/17 11:10 Dose: 100 mg - Labs Labs: 08/22/17 05:00 08/27/17 05:30 PT 15.3 Seconds (9.8-13.1) H 07/18/17 05:30 INR 1.4 (0.9-1.2) H 07/18/17 05:30 APTT 34.2 Seconds (25.6-37.1) 07/18/17 05:30 - Constitutional Appears: No Acute Distress, Chronically Ill - Head Exam Head Exam: ATRAUMATIC, NORMAL INSPECTION, NORMOCEPHALIC - Eye Exam Eye Exam: Normal appearance - ENT Exam ENT Exam: Mucous Membranes Moist - Neck Exam Neck Exam: Full ROM. absent: Tenderness Additional comments: left subclavian triple lumen catheter in place, dressing c/d/i - Respiratory Exam Respiratory Exam: Rales. absent: Rhonchi, Wheezes, Respiratory Distress Additional comments: mild bibasilar crackles, speaking in full sentences, no respiratory distress - Cardiovascular Exam Cardiovascular Exam: REGULAR RHYTHM, Murmur. absent: Tachycardia Additional comments: systolic murmur - GI/Abdominal Exam GI & Abdominal Exam: Soft, Normal Bowel Sounds. absent: Distended, Tenderness - Extremities Exam Extremities Exam: absent: Calf Tenderness, Pedal Edema, Tenderness - Neurological Exam Neurological Exam: Alert, Awake, Oriented x3 - Skin Skin Exam: Dry Assessment and Plan - Assessment and Plan (Free Text) Assessment: 67 y/o M with PMH including HTN, DM2, Diabetic nephropathy, Monoclonal gammopathy and Recurrent Left pleural effusion admitted for sepsis, Hypothermia , CHINTAN on CKD. Plan: Acute respiratory failure secondary to recurrent pleural effusions, improved - Most likely 2/2 nephrotic syndrome - Currently saturating at 97% on room air - Bumetanide 1 mg PO daily - C/w Chest PT Q4H via bed programming - Pulmonary recommendations for mucomyst, bronchodilator - ID Consult, Dr Dolan, recommendations appreciated - c/w weekly CXR on Fridays - CXR 08/22/2017: no change in moderate left pleural effusion and suspected loculated fluid in right major fissure. Underlying left lower lobe airspace disease cannot be excluded Hyperkalemia - K: 5.3 - losartan held until K+ normalizes - kayexalate 15 gm PO ordered - restrict K+ in diet - EKG 08/23/2017: sinus rhythm with 1st degree AV block, no peaked T wave - f/u bmp Hypoglycemia - improved - blood glucose this morning 225 - Has been taking PO but inconsistently - c/w prandin 0.5 mg PO TIDAC - DC'ed levemir - Continue correctional scale - Hypoglycemia precautions HTN due to CKD - preCHF: Echo 05/31/17 normal EF 60-65% - Continuing to improve but renal function gradually worsening as is expected as per Nephrology - Nephrology Consult, Dr Luz, recommendations appreciated: c/w ACEI, ARB, Cardiazem, Hydralazine, bumex - c/w losartan 50 mg PO daily, as per nephro Nephrotic Syndrome - Biopsy 06/05/17- nodular glomerulosclerosis/ ~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 - Renal duplex: no renal vein thrombosis - CKD stage 4: f/u Nephrology recommendations - As per nephrology: Secondary to severe diabetic nephropathy with nephrotic sydrome; renal function stable lately after resolution of ATN; repeat 24 hr urine protein with patient on aggressive KEVIN blockade, BP control and other hemodynamicaly mediated anti-proteinuric measures; still with ~9g proteinuria; will continue same management for now; no role for immunosuppressive therapy Anemia - Likely due to kidney disease and anemia of chronic disease - Hgb/Hct: 12.5/38.8 - EPO weekly on , held due to stable Hb, will resume if below 11 as per nephro Hypothyroidism - Last TSH 4.19 on 08/11/17 - Continue Synthroid 50 mcg PO daily Prolactinemia, improving - Last Prolactin: 27.1 on 07/19/17 - Will monitor DM type 2, with hypoglycemic episodes - c/w prandin 0.5 mg PO TIDAC - correction scale - ACCUcheck ACHS - Hypoglycemia precautions - HbA1c: 5.7% History of Seizure - C/w Keppra 500mg, PO, Q12H - Neurology Consult, Dr Nicholas, recommendations appreciated: c/w Roseann, ASA held, signed off - Re-consulted neurology for seizure history and AMS - CT head 08/08: shows no intracranial bleed, no acute pathology, chronic ischemic changes - EEG: Normal awake and drowsy EEG. No focal slowing no seizure like activity was observed Depression - History of depression - Remeron 30 mg PO HS - Psych re-consulted for decision making capacity, recommendations appreciated: patient does not have capacity to make medical decisions at this time Deconditioning - PT/OT re-consulted for mobility assessment Diet - poor PO intake due disliking hospital food, will eat food brought to him from outside - moderate consistent carbohydrate, 3 gm Na, 2 gm K, 60 gm protein - speech/swallow eval re-consulted, recommendations appreciated: remain w/ finely chopped diet, with exceptions for bite sized portions for specific foods listed in consultation - tuna fish, grilled cheese, pancakes, Slovenian toast, and penne pasta DVT prophylaxis - Heparin 5,000U, SC, Q12H, patient refuses at times Disposition - Pending child welfare social worker regarding initiation for possible guardianship - Psych consult, Dr. Bird, recommendations appreciated: deemed to not have capacity to make medical decisions at this time line: triple lumen catheter, left subclavian
[2017-08-27] MEDS: levETIRAcetam 100 mg/ml (5ml) Oral Syringe PO SCH ×2 (09:32→21:49)
[2017-08-27] MEDS: diltiaZEM 180 mg/24 Hours CD Cap PO SCH (09:34)
[2017-08-27] MEDS: Bacitracin OINT 15GM TOP SCH (09:36)
[2017-08-27] MEDS: Bacitracin 500 Units/gm Oint Foilpak UD TOP SCH ×3 (09:36→17:34)
[2017-08-27] MEDS: Lidocaine 5% Patch TD SCH (09:43)
[2017-08-27] MEDS: Insulin Regular 100 units/ml SC SCH ×4 (09:44→21:50)
--- NOTE | 2017-08-27 18:16 | PN ---
ENDOCRINOLOGY FOLLOWUP NOTE DATE: LOCATION: Room 661. SUBJECTIVE: This is a 67-year-old male with recent acute respiratory failure and underlying pleural effusion and is now being followed closely for metabolic management. His oral intake remains quite variable with suboptimal meal portions as noted. His glucose values are fluctuating, but improved and the glucose levels have ranged from 135-187 and 225 mg/dL. His latest chemistry showed a BUN of 46, sodium 146, potassium 5.3, chloride 109, CO2 of 28, glucose 96 and creatinine 1.7. So at this time, we will titrate once again his Prandin given at a very low dose of 0.5 to 1 mg p.o. t.i.d. before meals as ordered. We will obtain serial chemistries and supplement accordingly needed. We will follow and advise accordingly. Bettina Mann MD
[2017-08-28] MEDS: Albuterol-Ipratrop 3 mg / 0.5 (3 ml) UD INH SCH ×4 (01:54→19:35)
[2017-08-28] MEDS: Levothyroxine 50 MCG TAB PO SCH (06:16)
[2017-08-28] MEDS: Acetylcysteine 20% Inhal Soln (4ml) INH SCH (07:21)
[2017-08-28] MEDS: diltiaZEM 180 mg/24 Hours CD Cap PO SCH (08:16)
[2017-08-28] MEDS: Bacitracin 500 Units/gm Oint Foilpak UD TOP SCH ×3 (08:17→16:50)
[2017-08-28] MEDS: Insulin Regular 100 units/ml SC SCH ×4 (08:18→22:00)
[2017-08-28] MEDS: Lidocaine 5% Patch TD SCH (08:19)
[2017-08-28] MEDS: Bacitracin OINT 15GM TOP SCH (08:20)
[2017-08-28] MEDS ORDERED: Sod Polystyrene Sulf 15 gm/60 ml Susp PO ONE (11:47)
[2017-08-28] MEDS: levETIRAcetam 100 mg/ml (5ml) Oral Syringe PO SCH ×2 (12:10→21:41)
--- NOTE | 2017-08-28 19:20 | CP.PCM.PN ---
Subjective - Date & Time of Evaluation Date of Evaluation: 08/28/17 Time of Evaluation: 07:00 - Subjective Subjective: Patient seen and examined at bedside with attending. 67M denies SOB or chest pain, but c/o RIGHT shoulder discomfort occasionally. Otherwise, he expresses being unhappy with the food. Objective - Vital Signs/Intake and Output Vital Signs (last 24 hours): Temp Pulse Resp BP Pulse Ox 36.8 C 77 20 139/66 95 08/28/17 16:30 08/28/17 17:28 08/28/17 16:30 08/28/17 17:28 08/28/17 16:30 - Medications Medications: Current Medications Acetylcysteine (Acetylcysteine 20%) 2 ml INH RBID [facility] Last Admin: 08/28/17 07:21 Dose: 2 ml Albuterol/Ipratropium (Duoneb 3 Mg/0.5 Mg (3 Ml) Ud) 3 ml INH RQ6 [facility] Last Admin: 08/28/17 13:33 Dose: 3 ml Amlodipine Besylate (Norvasc) 5 mg PO Q12H [facility] Last Admin: 08/28/17 08:18 Dose: 5 mg Bacitracin (Bacitracin Oint) 1 applic TOP DAILY [facility] Last Admin: 08/28/17 08:20 Dose: Not Given Bacitracin (Bacitracin) 1 ea TOP TID [facility] Last Admin: 08/28/17 16:50 Dose: 1 ea Bumetanide (Bumex) 1 mg PO BID [facility] Last Admin: 08/28/17 17:30 Dose: Not Given Calcitriol (Rocaltrol) 0.25 mcg PO MWF [facility] Last Admin: 08/27/17 09:33 Dose: 0.25 mcg Chlorthalidone (Hygroton) 25 mg PO DAILY [facility] Last Admin: 08/28/17 12:08 Dose: 25 mg Dextrose (Dextrose 50% Inj) 0 ml IV STAT PRN; Protocol PRN Reason: Hypoglycemia Protocol Last Admin: 08/17/17 05:30 Dose: 50 ml Dextrose (Glutose 15) 0 gm PO ONCE PRN; Protocol PRN Reason: Hypoglycemia Protocol Dextrose (Dextrose 50% Inj) 0 ml IV STAT PRN; Protocol PRN Reason: Hypoglycemia Protocol Dextrose (Glutose 15) 0 gm PO ONCE PRN; Protocol PRN Reason: Hypoglycemia Protocol Diltiazem HCl (Cardizem Cd) 360 mg PO DAILY [facility] Ergocalciferol (Drisdol 50,000 Intl Units Cap) 1 cap PO Q7D [facility] Glucagon (Glucagen Diagnostic Kit) 0 mg IM STAT PRN; Protocol PRN Reason: Hypoglycemia Protocol Glucagon (Glucagen Diagnostic Kit) 0 mg IM STAT PRN; Protocol PRN Reason: Hypoglycemia Protocol Heparin Sodium (Porcine) (Heparin) 5,000 units SC Q12 [facility] PRN Reason: Protocol Last Admin: 08/28/17 08:20 Dose: Not Given Hydralazine HCl (Apresoline) 50 mg PO TID [facility] Last Admin: 08/28/17 17:28 Dose: Not Given Insulin Human Regular (Humulin R) 0 units SC ACHS [facility] PRN Reason: Protocol Last Admin: 08/28/17 16:50 Dose: Not Given Lactic Acid (Lac-Hydrin 12% Lotion (225 G)) 1 applic TOP TID [facility] Last Admin: 08/28/17 17:30 Dose: Not Given Levetiracetam (Keppra) 500 mg PO Q12H [facility] Last Admin: 08/28/17 12:10 Dose: 500 mg Levothyroxine Sodium (Synthroid) 50 mcg PO DAILY@0630 [facility] Last Admin: 08/28/17 06:16 Dose: 50 mcg Lidocaine (Lidoderm) 2 ea TD DAILY [facility] Last Admin: 08/28/17 08:19 Dose: 2 ea Lisinopril (Zestril) 40 mg PO DAILY [facility] Last Admin: 08/28/17 12:15 Dose: 40 mg Lorazepam (Ativan) 2 mg IVP Q6 PRN PRN Reason: Seizure activity Losartan Potassium (Cozaar) 50 mg PO DAILY [facility] Last Admin: 08/23/17 09:36 Dose: 50 mg Mirtazapine (Remeron) 30 mg PO HS [facility] Last Admin: 08/27/17 21:50 Dose: 30 mg Ondansetron HCl (Zofran Inj) 4 mg IVP Q6 PRN PRN Reason: Nausea/Vomiting Repaglinide (Prandin) 1 mg PO TIDAC [facility] Last Admin: 08/28/17 17:31 Dose: Not Given Thiamine HCl (Vitamin B1 Tab) 100 mg PO DAILY [facility] Last Admin: 08/28/17 08:18 Dose: 100 mg - Labs Labs: 08/22/17 05:00 08/28/17 05:50 PT 15.3 Seconds (9.8-13.1) H 07/18/17 05:30 INR 1.4 (0.9-1.2) H 07/18/17 05:30 APTT 34.2 Seconds (25.6-37.1) 07/18/17 05:30 - Constitutional Appears: Non-toxic, Older Than Stated Age, Cachectic - Eye Exam Eye Exam: Normal appearance - ENT Exam ENT Exam: Mucous Membranes Moist - Respiratory Exam Respiratory Exam: Decreased Breath Sounds (bilaterally), NORMAL BREATHING PATTERN - Cardiovascular Exam Cardiovascular Exam: REGULAR RHYTHM, +S1, +S2 - GI/Abdominal Exam GI & Abdominal Exam: Soft, Normal Bowel Sounds - Extremities Exam Extremities Exam: Normal Capillary Refill - Neurological Exam Neurological Exam: Alert, Awake - Psychiatric Exam Psychiatric exam: Normal Affect, Normal Mood - Skin Skin Exam: Dry, Warm Assessment and Plan - Assessment and Plan (Free Text) Assessment: 67M, homeless, with profound health issues that are currently stabilized with a multitude of medications to include oxygen. He is not medically or financially stable for discharge to home at this time. Plan: CKD: Nephrology Consult (Dr Luz) greatly appreciated- c/w all recommendations to include stopping ARB and monitoring K+ and BP DM: Endocrinology Consult (Dr Mann) appreciated- pt may have glucose impairment, but will c/w recommendations at this time HTN: Currently not well-controlled but controlling renal/pulmonary conditions are being considered in management DVT Prophylaxis: SC Heparin
--- NOTE | 2017-08-29 01:21 | PN ---
ENDOCRINOLOGY FOLLOWUP NOTE DATE: LOCATION: Room 661. SUBJECTIVE: This is a 67-year-old male with recent uncontrolled type 2 diabetes with improving oral intake as noted and also improved glycemic profile otherwise. His latest glucose levels have ranged from 75-115 mg/dL. His latest chemistries include a BUN of 49, sodium 141, potassium 5.6, chloride 108, CO2 of 25, glucose 95 and creatinine 1.8. So at this time, we will continue the modified oral hypoglycemic therapy with Prandin given as 1 mg p.o. t.i.d. before meals as ordered. We will obtain serial chemistries and supplement accordingly needed. We will follow. Bettina Mann MD
[2017-08-29] MEDS: Albuterol-Ipratrop 3 mg / 0.5 (3 ml) UD INH SCH ×4 (01:48→19:19)
[2017-08-29] MEDS: Levothyroxine 50 MCG TAB PO SCH (06:45)
[2017-08-29] MEDS: Acetylcysteine 20% Inhal Soln (4ml) INH SCH ×2 (07:04→19:19)
[2017-08-29] MEDS: Insulin Regular 100 units/ml SC SCH ×4 (07:19→21:35)
[2017-08-29] MEDS: Bacitracin 500 Units/gm Oint Foilpak UD TOP SCH ×3 (08:55→16:04)
[2017-08-29] MEDS: diltiaZEM 180 mg/24 Hours CD Cap PO SCH (08:55)
[2017-08-29] MEDS: Bacitracin OINT 15GM TOP SCH (08:57)
[2017-08-29] MEDS: Lidocaine 5% Patch TD SCH (08:58)
[2017-08-29] MEDS: levETIRAcetam 100 mg/ml (5ml) Oral Syringe PO SCH ×3 (08:59→21:37)
[2017-08-29 10:38] LABS: BASO # 0.1 K/uL (0.0-0.2); BASO % 2.9 % (0.0-2.0); EOS # 0.4 K/uL (0.0-0.7); EOS % 6.7 % (0.0-4.0); LYMPH # 1.2 K/uL (1.0-4.3); LYMPH % 23.7 % (20.0-40.0); MEAN CELL VOLUME 86.9 fl (80.0-94.0); MEAN CORPUSCULAR HEMOGLOBIN 28.4 pg (27.0-31.0); MEAN CORPUSCULAR HGB CONC 32.6 g/dL (33.0-37.0); MEAN PLATELET VOLUME 9.5 fl (7.2-11.7); MONO # 0.2 K/uL (0.0-0.8); MONO % 4.6 % (0.0-10.0); NEUT # 3.2 K/uL (1.8-7.0); NEUT % 62.1 % (50.0-75.0); NRBC % 0.1 % (0.0-0.0); RBC 3.86 Mil/uL (4.40-5.90); RED CELL DISTRIBUTION WIDTH 17.1 % (11.5-14.5); WHITE BLOOD COUNT 5.2 K/uL (4.8-10.8)
[2017-08-29 10:54] LABS: ALB/GLOB RATIO 0.8 (1.0-2.1); ALBUMIN 2.5 g/dL (3.5-5.0); CALCIUM 8.2 mg/dL (8.4-10.2)
--- NOTE | 2017-08-29 12:08 | CP.PCM.PN ---
Subjective - Date & Time of Evaluation Date of Evaluation: 08/29/17 Time of Evaluation: 08:00 - Subjective Subjective: No acute overnight events. Pt seen and examined this morning in the am. Seen eating breakfast. States he is cooperating with PT/OT. Denies cp, sob, cough, dysuria, fever, chills. Objective - Vital Signs/Intake and Output Vital Signs (last 24 hours): Temp Pulse Resp BP Pulse Ox 97.9 F 75 20 150/72 94 L 08/29/17 08:09 08/29/17 08:54 08/29/17 08:09 08/29/17 08:54 08/29/17 08:09 - Medications Medications: Current Medications Acetylcysteine (Acetylcysteine 20%) 2 ml INH RBID [facility] Last Admin: 08/29/17 07:04 Dose: Not Given Albuterol/Ipratropium (Duoneb 3 Mg/0.5 Mg (3 Ml) Ud) 3 ml INH RQ6 [facility] Last Admin: 08/29/17 07:04 Dose: Not Given Amlodipine Besylate (Norvasc) 5 mg PO Q12H [facility] Last Admin: 08/29/17 08:56 Dose: 5 mg Bacitracin (Bacitracin Oint) 1 applic TOP DAILY [facility] Last Admin: 08/29/17 08:57 Dose: 1 applic Bacitracin (Bacitracin) 1 ea TOP TID [facility] Last Admin: 08/29/17 08:55 Dose: 1 ea Bumetanide (Bumex) 1 mg PO BID [facility] Last Admin: 08/29/17 08:55 Dose: 1 mg Calcitriol (Rocaltrol) 0.25 mcg PO MWF [facility] Last Admin: 08/29/17 08:58 Dose: 0.25 mcg Chlorthalidone (Hygroton) 25 mg PO DAILY [facility] Last Admin: 08/29/17 08:56 Dose: 25 mg Dextrose (Dextrose 50% Inj) 0 ml IV STAT PRN; Protocol PRN Reason: Hypoglycemia Protocol Last Admin: 08/17/17 05:30 Dose: 50 ml Dextrose (Glutose 15) 0 gm PO ONCE PRN; Protocol PRN Reason: Hypoglycemia Protocol Dextrose (Dextrose 50% Inj) 0 ml IV STAT PRN; Protocol PRN Reason: Hypoglycemia Protocol Dextrose (Glutose 15) 0 gm PO ONCE PRN; Protocol PRN Reason: Hypoglycemia Protocol Diltiazem HCl (Cardizem Cd) 360 mg PO DAILY [facility] Last Admin: 08/29/17 08:55 Dose: 360 mg Ergocalciferol (Drisdol 50,000 Intl Units Cap) 1 cap PO Q7D [facility] Glucagon (Glucagen Diagnostic Kit) 0 mg IM STAT PRN; Protocol PRN Reason: Hypoglycemia Protocol Glucagon (Glucagen Diagnostic Kit) 0 mg IM STAT PRN; Protocol PRN Reason: Hypoglycemia Protocol Heparin Sodium (Porcine) (Heparin) 5,000 units SC Q12 [facility] PRN Reason: Protocol Last Admin: 08/29/17 08:56 Dose: Not Given Hydralazine HCl (Apresoline) 50 mg PO TID [facility] Last Admin: 08/29/17 08:56 Dose: 50 mg Insulin Human Regular (Humulin R) 0 units SC ACHS [facility] PRN Reason: Protocol Last Admin: 08/29/17 07:19 Dose: Not Given Lactic Acid (Lac-Hydrin 12% Lotion (225 G)) 1 applic TOP TID [facility] Last Admin: 08/29/17 08:57 Dose: 1 applic Levetiracetam (Keppra) 500 mg PO Q12H [facility] Last Admin: 08/28/17 21:41 Dose: 500 mg Levothyroxine Sodium (Synthroid) 50 mcg PO DAILY@0630 [facility] Last Admin: 08/29/17 06:45 Dose: 50 mcg Lidocaine (Lidoderm) 2 ea TD DAILY [facility] Last Admin: 08/29/17 08:58 Dose: 2 ea Lisinopril (Zestril) 40 mg PO DAILY [facility] Last Admin: 08/29/17 08:54 Dose: 40 mg Lorazepam (Ativan) 2 mg IVP Q6 PRN PRN Reason: Seizure activity Losartan Potassium (Cozaar) 50 mg PO DAILY [facility] Last Admin: 08/23/17 09:36 Dose: 50 mg Mirtazapine (Remeron) 30 mg PO HS [facility] Last Admin: 08/28/17 21:41 Dose: 30 mg Ondansetron HCl (Zofran Inj) 4 mg IVP Q6 PRN PRN Reason: Nausea/Vomiting Repaglinide (Prandin) 1 mg PO TIDAC [facility] Last Admin: 08/29/17 08:54 Dose: 1 mg Thiamine HCl (Vitamin B1 Tab) 100 mg PO DAILY [facility] Last Admin: 08/29/17 10:08 Dose: Not Given - Labs Labs: 08/29/17 10:34 08/29/17 10:34 PT 15.3 Seconds (9.8-13.1) H 07/18/17 05:30 INR 1.4 (0.9-1.2) H 07/18/17 05:30 APTT 34.2 Seconds (25.6-37.1) 07/18/17 05:30 - Constitutional Appears: Well, Non-toxic, Older Than Stated Age, Cachectic, Chronically Ill - ENT Exam ENT Exam: Mucous Membranes Moist - Respiratory Exam Respiratory Exam: Clear to Ausculation Bilateral. absent: Rales, Wheezes - Cardiovascular Exam Cardiovascular Exam: REGULAR RHYTHM, +S1, +S2. absent: Murmur - GI/Abdominal Exam GI & Abdominal Exam: Soft, Normal Bowel Sounds. absent: Tenderness - Extremities Exam Extremities Exam: absent: Calf Tenderness, Pedal Edema - Back Exam Back Exam: absent: CVA tenderness (L), CVA tenderness (R) - Neurological Exam Neurological Exam: Alert, Awake, Oriented x3 - Psychiatric Exam Psychiatric exam: Normal Affect Assessment and Plan - Assessment and Plan (Free Text) Assessment: 67 y/o M with PMH including HTN, DM2, Diabetic nephropathy, Monoclonal gammopathy and Recurrent Left pleural effusion admitted for sepsis, Hypothermia , CHINTAN on CKD. Plan: Acute respiratory failure secondary to recurrent pleural effusions, improved - Most likely 2/2 nephrotic syndrome - Currently saturating at 97% on room air - Bumetanide 1 mg PO daily - C/w Chest PT Q4H via bed programming - Pulmonary recommendations for mucomyst, bronchodilator - ID Consult, Dr Dolan consult appreciated - c/w weekly CXR on Fridays - CXR 08/22/2017: no change in moderate left pleural effusion and suspected loculated fluid in right major fissure. Underlying left lower lobe airspace disease cannot be excluded Hyperkalemia - K: 5.4 today - losartan held until K+ normalizes - kayexalate 15 gm PO ordered- pt refused today despite teachings - restrict K+ in diet - EKG 08/23/2017: sinus rhythm with 1st degree AV block, no peaked T wave -Avoid Beta tamara - f/u am BMP Hypoglycemia - improved - blood glucose this morning 225 - Has been taking PO but inconsistently - c/w prandin 0.5 mg PO TIDAC - DC'ed levemir - Continue correctional scale - Hypoglycemia precautions HTN due to CKD -BP in 150's systolic -Sports Medicine Trainer, Dr. Luz, on board - preCHF: Echo 05/31/17 normal EF 60-65% - Continuing to improve but renal function gradually worsening as is expected as per Nephrology - Nephrology Consult, Dr Luz, recommendations appreciated: c/w ACEI, ARB, Cardiazem, Hydralazine, bumex. 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 - Renal duplex: no renal vein thrombosis - CKD stage 4: f/u Nephrology recommendations - As per nephrology: Secondary to severe diabetic nephropathy with nephrotic sydrome; renal function stable lately after resolution of ATN; repeat 24 hr urine protein with patient on aggressive KEVIN blockade, BP control and other hemodynamicaly mediated anti-proteinuric measures; still with ~9g proteinuria; will continue same management for now; no role for immunosuppressive therapy Anemia - Likely due to kidney disease and anemia of chronic disease - Hgb/Hct: .6 - EPO weekly on , held due to stable Hb, will resume if below 11 as per nephro Hypothyroidism - Last TSH 4.19 on 08/11/17 - Continue Synthroid 50 mcg PO daily Prolactinemia, improving - Last Prolactin: 27.1 on 07/19/17 - Will monitor DM type 2, with hypoglycemic episodes - c/w prandin 0.5 mg PO TIDAC - correction scale - ACCUcheck ACHS - Hypoglycemia precautions - HbA1c: 5.7% History of Seizure - C/w Keppra 500mg, PO, Q12H - Neurology Consult, Dr Nicholas, recommendations appreciated: c/w Keppra, ASA held, signed off - Re-consulted neurology for seizure history and AMS - CT head 08/08: shows no intracranial bleed, no acute pathology, chronic ischemic changes - EEG: Normal awake and drowsy EEG. No focal slowing no seizure like activity was observed Depression - History of depression - Remeron 30 mg PO HS - Psych re-consulted for decision making capacity, recommendations appreciated: patient does not have capacity to make medical decisions at this time Deconditioning - PT/OT re-consulted for mobility assessment Diet - poor PO intake due disliking hospital food, will eat food brought to him from outside - moderate consistent carbohydrate, 3 gm Na, 2 gm K, 60 gm protein - speech/swallow eval re-consulted, recommendations appreciated: remain w/ finely chopped diet, with exceptions for bite sized portions for specific foods listed in consultation - tuna fish, grilled cheese, pancakes, Austrian toast, and penne pasta DVT prophylaxis - Heparin 5,000U, SC, Q12H, patient refused today Disposition - Pending social media project manager regarding initiation for possible guardianship - Psych consult, Dr. Bird, recommendations appreciated: deemed to not have capacity to make medical decisions at this time line: triple lumen catheter, left subclavian
--- NOTE | 2017-08-29 15:36 | CP.PCM.PN ---
Subjective - Date & Time of Evaluation Date of Evaluation: 08/29/17 Time of Evaluation: 15:34 - Subjective Subjective: Patient complaining about lack of salt in food; denies sob; ambulating little; Objective - Vital Signs/Intake and Output Vital Signs (last 24 hours): Temp Pulse Resp BP Pulse Ox 98.4 F 84 17 156/74 H 95 08/29/17 12:19 08/29/17 12:20 08/29/17 12:19 08/29/17 12:20 08/29/17 12:19 - Medications Medications: Current Medications Acetylcysteine (Acetylcysteine 20%) 2 ml INH RBID [facility] Last Admin: 08/29/17 07:04 Dose: Not Given Albuterol/Ipratropium (Duoneb 3 Mg/0.5 Mg (3 Ml) Ud) 3 ml INH RQ6 [facility] Last Admin: 08/29/17 13:26 Dose: Not Given Amlodipine Besylate (Norvasc) 5 mg PO Q12H [facility] Last Admin: 08/29/17 08:56 Dose: 5 mg Bacitracin (Bacitracin Oint) 1 applic TOP DAILY [facility] Last Admin: 08/29/17 08:57 Dose: 1 applic Bacitracin (Bacitracin) 1 ea TOP TID [facility] Last Admin: 08/29/17 12:21 Dose: Not Given Bumetanide (Bumex) 1 mg PO BID [facility] Last Admin: 08/29/17 08:55 Dose: 1 mg Calcitriol (Rocaltrol) 0.25 mcg PO MWF [facility] Last Admin: 08/29/17 08:58 Dose: 0.25 mcg Calcium Acetate (Phoslo) 667 mg PO [facility] Chlorthalidone (Hygroton) 25 mg PO DAILY [facility] Last Admin: 08/29/17 08:56 Dose: 25 mg Dextrose (Dextrose 50% Inj) 0 ml IV STAT PRN; Protocol PRN Reason: Hypoglycemia Protocol Last Admin: 08/17/17 05:30 Dose: 50 ml Dextrose (Glutose 15) 0 gm PO ONCE PRN; Protocol PRN Reason: Hypoglycemia Protocol Dextrose (Dextrose 50% Inj) 0 ml IV STAT PRN; Protocol PRN Reason: Hypoglycemia Protocol Dextrose (Glutose 15) 0 gm PO ONCE PRN; Protocol PRN Reason: Hypoglycemia Protocol Diltiazem HCl (Cardizem Cd) 360 mg PO DAILY [facility] Last Admin: 08/29/17 08:55 Dose: 360 mg Ergocalciferol (Drisdol 50,000 Intl Units Cap) 1 cap PO Q7D [facility] Glucagon (Glucagen Diagnostic Kit) 0 mg IM STAT PRN; Protocol PRN Reason: Hypoglycemia Protocol Glucagon (Glucagen Diagnostic Kit) 0 mg IM STAT PRN; Protocol PRN Reason: Hypoglycemia Protocol Heparin Sodium (Porcine) (Heparin) 5,000 units SC Q12 [facility] PRN Reason: Protocol Last Admin: 08/29/17 08:56 Dose: Not Given Hydralazine HCl (Apresoline) 50 mg PO TID [facility] Last Admin: 08/29/17 12:20 Dose: 50 mg Insulin Human Regular (Humulin R) 0 units SC ACHS [facility] PRN Reason: Protocol Last Admin: 08/29/17 12:21 Dose: Not Given Lactic Acid (Lac-Hydrin 12% Lotion (225 G)) 1 applic TOP TID [facility] Last Admin: 08/29/17 12:21 Dose: Not Given Levetiracetam (Keppra) 500 mg PO Q12H [facility] Last Admin: 08/29/17 12:20 Dose: 500 mg Levothyroxine Sodium (Synthroid) 50 mcg PO DAILY@0630 [facility] Last Admin: 08/29/17 06:45 Dose: 50 mcg Lidocaine (Lidoderm) 2 ea TD DAILY [facility] Last Admin: 08/29/17 08:58 Dose: 2 ea Lisinopril (Zestril) 40 mg PO DAILY [facility] Last Admin: 08/29/17 08:54 Dose: 40 mg Lorazepam (Ativan) 2 mg IVP Q6 PRN PRN Reason: Seizure activity Losartan Potassium (Cozaar) 50 mg PO DAILY [facility] Last Admin: 08/23/17 09:36 Dose: 50 mg Mirtazapine (Remeron) 30 mg PO HS [facility] Last Admin: 08/28/17 21:41 Dose: 30 mg Ondansetron HCl (Zofran Inj) 4 mg IVP Q6 PRN PRN Reason: Nausea/Vomiting Repaglinide (Prandin) 1 mg PO TIDAC [facility] Last Admin: 08/29/17 12:21 Dose: 1 mg Sodium Polystyrene Sulfonate (Kayexalate Susp) 15 gm PO DAILY [facility] Thiamine HCl (Vitamin B1 Tab) 100 mg PO DAILY [facility] Last Admin: 08/29/17 10:08 Dose: Not Given - Labs Labs: 08/29/17 10:34 08/29/17 10:34 PT 15.3 Seconds (9.8-13.1) H 07/18/17 05:30 INR 1.4 (0.9-1.2) H 07/18/17 05:30 APTT 34.2 Seconds (25.6-37.1) 07/18/17 05:30 - Constitutional Appears: Non-toxic, No Acute Distress, Cachectic - Eye Exam Eye Exam: absent: Scleral icterus - ENT Exam ENT Exam: Mucous Membranes Moist - Respiratory Exam Respiratory Exam: absent: Respiratory Distress Additional comments: decreased breath sounds at b/l bases; - Cardiovascular Exam Cardiovascular Exam: RRR, +S1, +S2 - GI/Abdominal Exam GI & Abdominal Exam: Soft. absent: Distended, Tenderness - Exam Exam: absent: Bladder Distension - Extremities Exam Additional comments: mild b/l ankle edema; - Neurological Exam Neurological Exam: Alert, Awake - Psychiatric Exam Psychiatric exam: absent: Agitated - Skin Skin Exam: Warm. absent: Cyanosis Assessment and Plan (1) Hyperkalemia Assessment & Plan: Mild but persistent despite getting daily kayexalate 15g lately; will continue the same; continuing with lisinopril but holding losartan; Status: Acute (2) Malnutrition Assessment & Plan: Discussed with systems program manager today; agree with higher Na diet in order to make food more palatable; will d/c protein restriction as well; need to maintain K restriction; Status: Acute (3) Hypertensive CKD (chronic kidney disease) Assessment & Plan: BP elevated off losartan but cannot continue until hyperkalemia controlled; continue rest of meds including chlorthalidone for now; avoid B-blockers due to hyperkalemia; can consider increasing hydralazine dose if BP persistently elevated; may have to restart clonidine; Status: Acute (4) Chronic kidney disease, stage 3 (moderate) Assessment & Plan: Serum creatinine elevated, possibly due to being over-diuresed from chlorthalidone; continue to monitor renal function periodically; Status: Chronic (5) Acute renal failure Status: Resolved (6) Nephrotic syndrome Status: Chronic (7) Pleural effusion Status: Chronic (8) Hypothermia Status: Acute (9) Altered mental status Status: Acute (10) SIRS (systemic inflammatory response syndrome) Status: Acute (11) Anemia Assessment & Plan: Hgb dropping off EPO; now at upper limit of goal; will restart EPO at lower dose once BP improved; Status: Chronic (12) Monoclonal gammopathy Status: Chronic (13) Hypernatremia Status: Acute (14) Chronic kidney disease-mineral and bone disorder Assessment & Plan: Phos elevated on calcitriol, will decrease dose to once weekly and re-assess before starting phos binder; Status: Chronic
[2017-08-29] MEDS: Sod Polystyrene Sulf 15 gm/60 ml Susp PO SCH (16:04)
--- NOTE | 2017-08-29 19:16 | PN ---
DATE: ENDO FOLLOWUP NOTE LOCATION: In room 661. This is a 67-year-old male with recent acute respiratory failure with underlying pleural effusion and is now being followed closely for metabolic management. His glycemic levels are fluctuating but much improved at this time and the latest glucose values have ranged from 91-146 and 155 mg/dL. His latest chemistry showed a BUN of 58, sodium 141, potassium 5.4, chloride 107, CO2 26, glucose 140 and creatinine 2.1. So at this time, we will continue the same low-dose oral hypoglycemic therapy with Prandin given as 1 mg p.o. t.i.d. before meals as ordered. We will titrate incremental as indicated to optimize metabolic control. We will follow and advise accordingly. Bettina Mann MD
[2017-08-30] MEDS: Albuterol-Ipratrop 3 mg / 0.5 (3 ml) UD INH SCH ×2 (00:59→07:11)
[2017-08-30] MEDS: Insulin Regular 100 units/ml SC SCH ×4 (06:52→22:43)
[2017-08-30] MEDS: Levothyroxine 50 MCG TAB PO SCH (06:53)
[2017-08-30] MEDS: Acetylcysteine 20% Inhal Soln (4ml) INH SCH ×2 (07:11→19:52)
[2017-08-30 07:30] LABS: CALCIUM 8.2 mg/dL (8.4-10.2)
[2017-08-30] MEDS: Lidocaine 5% Patch TD SCH (09:17)
[2017-08-30] MEDS: levETIRAcetam 100 mg/ml (5ml) Oral Syringe PO SCH ×3 (09:17→22:42)
[2017-08-30] MEDS: diltiaZEM 180 mg/24 Hours CD Cap PO SCH (09:17)
[2017-08-30] MEDS: Bacitracin 500 Units/gm Oint Foilpak UD TOP SCH ×3 (09:19→16:24)
[2017-08-30] MEDS: Bacitracin OINT 15GM TOP SCH (09:19)
[2017-08-30] MEDS: Sod Polystyrene Sulf 15 gm/60 ml Susp PO SCH ×2 (09:22→11:28)
--- NOTE | 2017-08-30 11:17 | CP.PCM.PN ---
Subjective - Date & Time of Evaluation Date of Evaluation: 08/30/17 Time of Evaluation: 08:00 - Subjective Subjective: Hypoglycemic episodes overnight. As per RN, insulin was held, pt was given juice, and repeat POC Glucose was wnl. Pt seen and examined this morning. States he has been eating his food but feels like there is no taste. Denies sob , cp, abdominal pain, fever, chills. Ambulating with assistance. Urination normal. Objective - Vital Signs/Intake and Output Vital Signs (last 24 hours): Temp Pulse Resp BP Pulse Ox 97.6 F 67 20 152/73 H 96 08/30/17 07:57 08/30/17 07:57 08/30/17 07:57 08/30/17 07:57 08/30/17 07:57 - Medications Medications: Current Medications Acetylcysteine (Acetylcysteine 20%) 2 ml INH RBID [facility] Last Admin: 08/30/17 07:11 Dose: Not Given Amlodipine Besylate (Norvasc) 5 mg PO Q12H [facility] Last Admin: 08/30/17 09:18 Dose: 5 mg Bacitracin (Bacitracin Oint) 1 applic TOP DAILY [facility] Last Admin: 08/30/17 09:19 Dose: Not Given Bacitracin (Bacitracin) 1 ea TOP TID [facility] Last Admin: 08/30/17 09:19 Dose: Not Given Bumetanide (Bumex) 1 mg PO BID [facility] Last Admin: 08/30/17 09:18 Dose: 1 mg Calcitriol (Rocaltrol) 0.25 mcg PO FRI [facility] Chlorthalidone (Hygroton) 25 mg PO DAILY [facility] Last Admin: 08/30/17 09:18 Dose: 25 mg Dextrose (Dextrose 50% Inj) 0 ml IV STAT PRN; Protocol PRN Reason: Hypoglycemia Protocol Last Admin: 08/17/17 05:30 Dose: 50 ml Dextrose (Glutose 15) 0 gm PO ONCE PRN; Protocol PRN Reason: Hypoglycemia Protocol Dextrose (Dextrose 50% Inj) 0 ml IV STAT PRN; Protocol PRN Reason: Hypoglycemia Protocol Dextrose (Glutose 15) 0 gm PO ONCE PRN; Protocol PRN Reason: Hypoglycemia Protocol Diltiazem HCl (Cardizem Cd) 360 mg PO DAILY [facility] Last Admin: 08/30/17 09:17 Dose: 360 mg Ergocalciferol (Drisdol 50,000 Intl Units Cap) 1 cap PO Q7D [facility] Glucagon (Glucagen Diagnostic Kit) 0 mg IM STAT PRN; Protocol PRN Reason: Hypoglycemia Protocol Glucagon (Glucagen Diagnostic Kit) 0 mg IM STAT PRN; Protocol PRN Reason: Hypoglycemia Protocol Heparin Sodium (Porcine) (Heparin) 5,000 units SC Q12 [facility] PRN Reason: Protocol Last Admin: 08/30/17 09:19 Dose: Not Given Hydralazine HCl (Apresoline) 50 mg PO TID [facility] Last Admin: 08/30/17 09:17 Dose: 50 mg Insulin Human Regular (Humulin R) 0 units SC ACHS [facility] PRN Reason: Protocol Last Admin: 08/30/17 06:52 Dose: Not Given Lactic Acid (Lac-Hydrin 12% Lotion (225 G)) 1 applic TOP TID [facility] Last Admin: 08/30/17 09:18 Dose: 1 applic Levetiracetam (Keppra) 500 mg PO Q12H [facility] Last Admin: 08/29/17 21:37 Dose: 500 mg Levothyroxine Sodium (Synthroid) 50 mcg PO DAILY@0630 [facility] Last Admin: 08/30/17 06:53 Dose: 50 mcg Lidocaine (Lidoderm) 2 ea TD DAILY [facility] Last Admin: 08/30/17 09:17 Dose: 2 ea Lisinopril (Zestril) 40 mg PO DAILY [facility] Last Admin: 08/30/17 09:18 Dose: 40 mg Lorazepam (Ativan) 2 mg IVP Q6 PRN PRN Reason: Seizure activity Losartan Potassium (Cozaar) 50 mg PO DAILY [facility] Last Admin: 08/23/17 09:36 Dose: 50 mg Mirtazapine (Remeron) 30 mg PO HS [facility] Last Admin: 08/29/17 21:38 Dose: 30 mg Sodium Polystyrene Sulfonate (Kayexalate Susp) 15 gm PO DAILY [facility] Last Admin: 08/29/17 16:04 Dose: 15 gm Thiamine HCl (Vitamin B1 Tab) 100 mg PO DAILY [facility] Last Admin: 08/30/17 09:18 Dose: 100 mg - Labs Labs: 08/29/17 10:34 08/30/17 05:30 PT 15.3 Seconds (9.8-13.1) H 07/18/17 05:30 INR 1.4 (0.9-1.2) H 07/18/17 05:30 APTT 34.2 Seconds (25.6-37.1) 07/18/17 05:30 - Constitutional Appears: Well, No Acute Distress, Cachectic, Chronically Ill - ENT Exam ENT Exam: Mucous Membranes Moist - Respiratory Exam Respiratory Exam: Clear to Ausculation Bilateral. absent: Accessory Muscle Use , Rales, Wheezes - Cardiovascular Exam Cardiovascular Exam: REGULAR RHYTHM, +S1, +S2. absent: Murmur - GI/Abdominal Exam GI & Abdominal Exam: Soft, Normal Bowel Sounds. absent: Distended, Tenderness - Neurological Exam Neurological Exam: Alert, Awake, Oriented x3 Assessment and Plan - Assessment and Plan (Free Text) Assessment: 67 y/o M with PMH including HTN, DM2, Diabetic nephropathy, Monoclonal gammopathy and Recurrent Left pleural effusion admitted for sepsis, Hypothermia , CHINTAN on CKD. Plan: Acute respiratory failure secondary to recurrent pleural effusions, improved - Most likely 2/2 nephrotic syndrome - Currently saturating at 97% on room air - Bumetanide 1 mg PO daily - C/w Chest PT Q4H via bed programming - Pulmonary recommendations for mucomyst, bronchodilator - ID Consult, Dr Dolan consult appreciated - c/w weekly CXR on Fridays - CXR 08/22/2017: no change in moderate left pleural effusion and suspected loculated fluid in right major fissure. Underlying left lower lobe airspace disease cannot be excluded Hyperkalemia - K: 5.1 today - losartan held until K+ normalizes - kayexalate 15 gm PO ordered- pt refused today despite teachings - restrict K+ in diet - EKG 08/23/2017: sinus rhythm with 1st degree AV block, no peaked T wave -Avoid Beta tamara - f/u am BMP Hypoglycemia - - Recently having hypoglycemic episodes over the past 2-3 days. Upon review of fasting blood glucose levels over the past 2 weeks, Prandin d/c'd. Glucose checks will continue until tomorrow and will be dc'd. - Has been taking PO but inconsistently - D/W prandin 0.5 mg PO TIDAC - DC'ed levemir - Correctional Scale d/c'd - Hypoglycemia precautions in place HTN due to CKD -BP in 150's systolic -[place], Dr. Luz, on board - preCHF: Echo 05/31/17 normal EF 60-65% - Continuing to improve but renal function gradually worsening as is expected as per Nephrology - Nephrology Consult, Dr Luz, recommendations appreciated: c/w ACEI, ARB, Cardiazem, Hydralazine, bumex. 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 - Renal duplex: no renal vein thrombosis - CKD stage 4: f/u Nephrology recommendations - As per nephrology: Secondary to severe diabetic nephropathy with nephrotic sydrome; renal function stable lately after resolution of ATN; repeat 24 hr urine protein with patient on aggressive KEVIN blockade, BP control and other hemodynamicaly mediated anti-proteinuric measures; still with ~9g proteinuria; will continue same management for now; no role for immunosuppressive therapy Anemia - Likely due to kidney disease and anemia of chronic disease - Hgb/Hct: .6 - EPO weekly on , held due to stable Hb, will resume if below 11 as per nephro Hypothyroidism - Last TSH 4.19 on 08/11/17 - Continue Synthroid 50 mcg PO daily Prolactinemia, improving - Last Prolactin: 27.1 on 07/19/17 - Will monitor DM type 2, with hypoglycemic episodes - c/w prandin 0.5 mg PO TIDAC - correction scale - ACCUcheck ACHS - Hypoglycemia precautions - HbA1c: 5.7% History of Seizure - C/w Keppra 500mg, PO, Q12H - Neurology Consult, Dr Nicholas, recommendations appreciated: c/w Keppra, ASA held, signed off - Re-consulted neurology for seizure history and AMS - CT head 08/08: shows no intracranial bleed, no acute pathology, chronic ischemic changes - EEG: Normal awake and drowsy EEG. No focal slowing no seizure like activity was observed Depression - History of depression - Remeron 30 mg PO HS - Psych re-consulted for decision making capacity, recommendations appreciated: patient does not have capacity to make medical decisions at this time Deconditioning - PT/OT re-consulted for mobility assessment Diet - poor PO intake due disliking hospital food, will eat food brought to him from outside - moderate consistent carbohydrate, 3 gm Na, 2 gm K, 60 gm protein - speech/swallow eval re-consulted, recommendations appreciated: remain w/ finely chopped diet, with exceptions for bite sized portions for specific foods listed in consultation - tuna fish, grilled cheese, pancakes, Jamaican toast, and penne pasta DVT prophylaxis - Heparin 5,000U, SC, Q12H, patient refused today Disposition - Pending social sciences instructor regarding initiation for possible guardianship - Psych consult, Dr. Bird, recommendations appreciated: deemed to not have capacity to make medical decisions at this time line: triple lumen catheter, left subclavian
[2017-08-31] MEDS: Levothyroxine 50 MCG TAB PO SCH (06:59)
[2017-08-31] MEDS: Insulin Regular 100 units/ml SC SCH ×4 (06:59→22:07)
[2017-08-31] MEDS: Acetylcysteine 20% Inhal Soln (4ml) INH SCH ×2 (08:08→19:48)
--- NOTE | 2017-08-31 09:18 | CP.PCM.PN ---
Subjective - Date & Time of Evaluation Date of Evaluation: 08/31/17 Time of Evaluation: 07:05 - Subjective Subjective: Patient seen and examined at bedside with attending. 67M focused on eating his pancakes and eggs denies chest pain or SOB. He reports he is having some intermittent mild RIGHT shoulder pain, but when pressed for further, clarifying information shrugs his shoulders. Objective - Vital Signs/Intake and Output Vital Signs (last 24 hours): Temp Pulse Resp BP Pulse Ox 36.4 C 66 18 124/67 97 08/31/17 08:04 08/31/17 08:04 08/31/17 08:04 08/31/17 08:04 08/31/17 08:04 - Medications Medications: Current Medications Acetylcysteine (Acetylcysteine 20%) 2 ml INH RBID [facility] Last Admin: 08/31/17 08:08 Dose: Not Given Amlodipine Besylate (Norvasc) 5 mg PO Q12H [facility] Last Admin: 08/30/17 21:42 Dose: 5 mg Bacitracin (Bacitracin Oint) 1 applic TOP DAILY [facility] Last Admin: 08/30/17 09:19 Dose: Not Given Bacitracin (Bacitracin) 1 ea TOP TID [facility] Last Admin: 08/30/17 16:24 Dose: Not Given Bumetanide (Bumex) 1 mg PO BID [facility] Last Admin: 08/30/17 16:24 Dose: 1 mg Calcitriol (Rocaltrol) 0.25 mcg PO FRI [facility] Chlorthalidone (Hygroton) 25 mg PO DAILY [facility] Last Admin: 08/30/17 09:18 Dose: 25 mg Dextrose (Dextrose 50% Inj) 0 ml IV STAT PRN; Protocol PRN Reason: Hypoglycemia Protocol Dextrose (Glutose 15) 0 gm PO ONCE PRN; Protocol PRN Reason: Hypoglycemia Protocol Diltiazem HCl (Cardizem Cd) 360 mg PO DAILY [facility] Last Admin: 08/30/17 09:17 Dose: 360 mg Ergocalciferol (Drisdol 50,000 Intl Units Cap) 1 cap PO Q7D [facility] Glucagon (Glucagen Diagnostic Kit) 0 mg IM STAT PRN; Protocol PRN Reason: Hypoglycemia Protocol Heparin Sodium (Porcine) (Heparin) 5,000 units SC Q12 [facility] PRN Reason: Protocol Last Admin: 08/30/17 21:47 Dose: Not Given Hydralazine HCl (Apresoline) 50 mg PO TID [facility] Last Admin: 08/30/17 16:23 Dose: 50 mg Insulin Human Regular (Humulin R) 0 units SC ACHS [facility] PRN Reason: Protocol Last Admin: 08/31/17 06:59 Dose: Not Given Lactic Acid (Lac-Hydrin 12% Lotion (225 G)) 1 applic TOP TID [facility] Last Admin: 08/30/17 16:23 Dose: 1 applic Levetiracetam (Keppra) 500 mg PO Q12H [facility] Last Admin: 08/30/17 22:42 Dose: 500 mg Levothyroxine Sodium (Synthroid) 50 mcg PO DAILY@0630 [facility] Last Admin: 08/31/17 06:59 Dose: 50 mcg Lidocaine (Lidoderm) 2 ea TD DAILY [facility] Last Admin: 08/30/17 09:17 Dose: 2 ea Lisinopril (Zestril) 40 mg PO DAILY [facility] Last Admin: 08/30/17 09:18 Dose: 40 mg Lorazepam (Ativan) 2 mg IVP Q6 PRN PRN Reason: Seizure activity Losartan Potassium (Cozaar) 50 mg PO DAILY [facility] Last Admin: 08/23/17 09:36 Dose: 50 mg Mirtazapine (Remeron) 30 mg PO HS [facility] Last Admin: 08/30/17 22:42 Dose: 30 mg Sodium Polystyrene Sulfonate (Kayexalate Susp) 15 gm PO DAILY [facility] Last Admin: 08/30/17 11:28 Dose: Not Given Thiamine HCl (Vitamin B1 Tab) 100 mg PO DAILY [facility] Last Admin: 08/30/17 09:18 Dose: 100 mg - Labs Labs: 08/29/17 10:34 08/30/17 05:30 PT 15.3 Seconds (9.8-13.1) H 07/18/17 05:30 INR 1.4 (0.9-1.2) H 07/18/17 05:30 APTT 34.2 Seconds (25.6-37.1) 07/18/17 05:30 - Constitutional Appears: Cachectic - Eye Exam Eye Exam: Normal appearance - ENT Exam ENT Exam: Mucous Membranes Moist - Respiratory Exam Respiratory Exam: Clear to Ausculation Bilateral, NORMAL BREATHING PATTERN - Cardiovascular Exam Cardiovascular Exam: REGULAR RHYTHM, +S1, +S2 - GI/Abdominal Exam GI & Abdominal Exam: Soft, Normal Bowel Sounds - Extremities Exam Extremities Exam: Normal Capillary Refill - Neurological Exam Neurological Exam: Alert, Awake - Psychiatric Exam Psychiatric exam: Normal Mood - Skin Skin Exam: Dry, Warm Assessment and Plan - Assessment and Plan (Free Text) Assessment: 67M, homeless, with profound health issues that are currently stabilized with a multitude of medications to include oxygen. He is not medically or financially stable for discharge to home at this time. Plan: CKD: Nephrology Consult (Dr Luz) greatly appreciated- c/w all recommendations to include stopping ARB, K+-5.1, re-check 3/5, BP has improved DM: Endocrinology Consult (Dr Mann) appreciated- pt may have glucose impairment, but intermittent hypoglycemic episodes prompted cessation of Prandin and no further hypoglycemia HTN: Better controlled, will continue current medications and monitoring DVT Prophylaxis: SC Heparin
[2017-08-31] MEDS: diltiaZEM 180 mg/24 Hours CD Cap PO SCH (10:47)
[2017-08-31] MEDS: Bacitracin OINT 15GM TOP SCH (10:48)
[2017-08-31] MEDS: Sod Polystyrene Sulf 15 gm/60 ml Susp PO SCH (10:57)
[2017-08-31] MEDS: levETIRAcetam 100 mg/ml (5ml) Oral Syringe PO SCH ×2 (10:58→21:42)
[2017-08-31] MEDS: Bacitracin 500 Units/gm Oint Foilpak UD TOP SCH ×3 (11:07→16:28)
[2017-08-31] MEDS: Lidocaine 5% Patch TD SCH (11:13)
--- NOTE | 2017-08-31 15:09 | PN ---
DATE: ENDO FOLLOWUP NOTE LOCATION: Room 661. SUBJECTIVE: This is a 66-year-old male with recent uncontrolled type 2 insulin-requiring diabetes now being followed closely for metabolic management. He has been taken off all insulin therapy and even all the oral hypoglycemic therapy because of supervening low normal glycemic levels, especially with the variability of his oral intake as noted thereof. His glucose values today have ranged from 91 to 158 and 164 mg/dL. His latest chemistry showed BUN of 58, sodium of 141, potassium of 5.4, chloride of 107, CO2 of 26, glucose of 140, and creatinine of 2.1. So at this time, we will continue the low-dose correction scale using regular insulin as ordered. We will hold off the resumption of any oral hypoglycemic drug therapy for now as given. We will follow and advice accordingly. Bettina Mann MD
[2017-09-01] MEDS: Levothyroxine 50 MCG TAB PO SCH (06:55)
[2017-09-01] MEDS: Insulin Regular 100 units/ml SC SCH ×4 (06:58→22:00)
[2017-09-01 07:14] LABS: CALCIUM 8.3 mg/dL (8.4-10.2)
[2017-09-01] MEDS: Acetylcysteine 20% Inhal Soln (4ml) INH SCH ×2 (08:00→19:09)
--- NOTE | 2017-09-01 08:28 | PN ---
DATE: ENDO FOLLOWUP NOTE LOCATION: Room 661. SUBJECTIVE: This is a 67-year-old male with recent uncontrolled type 2 diabetes now being followed closely for metabolic management. His oral intake remains quite variable at this time as noted. His glycemic values are fluctuating, but much improved as noted. His glucose values were actually normal overnight, which was 59 at bedtime and this morning was 64 mg/dL. The latest chemistries showed BUN of 55, sodium of 144, potassium of 5.1, chloride of 108, CO2 of 25, glucose of 66, and creatinine of 1.9. So at this time, we will actually discontinue the Prandin given as 1 mg p.o. t.i.d. before meals as ordered. We will observe his glycemic fluctuations, otherwise, and once again, determine the need to resume the oral hypoglycemic drug therapy as indicated. He has a very low-dose correction scale with Humalog insulin to be given only above 300 mg/dL. We will obtain serial chemistry and supplement accordingly as needed. We will follow this. Bettina Mann MD
[2017-09-01] MEDS: diltiaZEM 180 mg/24 Hours CD Cap PO SCH (08:49)
[2017-09-01] MEDS: Bacitracin 500 Units/gm Oint Foilpak UD TOP SCH ×3 (08:50→16:43)
[2017-09-01] MEDS: Lidocaine 5% Patch TD SCH (08:51)
[2017-09-01] MEDS: Sod Polystyrene Sulf 15 gm/60 ml Susp PO SCH (08:53)
[2017-09-01] MEDS: Bacitracin OINT 15GM TOP SCH (08:57)
[2017-09-01] MEDS: levETIRAcetam 100 mg/ml (5ml) Oral Syringe PO SCH ×2 (09:09→21:02)
--- NOTE | 2017-09-01 12:01 | CP.PCM.PN ---
Subjective - Date & Time of Evaluation Date of Evaluation: 09/01/17 Time of Evaluation: 08:00 - Subjective Subjective: No acute overnight events. Pt seen and examined this morning. No complaints. States arm pain is improved. Tolerating regular diet. Ambulating. BM regular. Urination normal. Denies cp, sob, cough, n/v, fever, chills. Objective - Vital Signs/Intake and Output Vital Signs (last 24 hours): Temp Pulse Resp BP Pulse Ox 98.3 F 80 20 167/80 H 94 L 09/01/17 07:51 09/01/17 08:54 09/01/17 07:51 09/01/17 08:54 09/01/17 07:51 - Medications Medications: Current Medications Acetylcysteine (Acetylcysteine 20%) 2 ml INH RBID [facility] Last Admin: 08/31/17 19:48 Dose: Not Given Amlodipine Besylate (Norvasc) 5 mg PO Q12H [facility] Last Admin: 09/01/17 08:53 Dose: 5 mg Bacitracin (Bacitracin Oint) 1 applic TOP DAILY [facility] Last Admin: 09/01/17 08:57 Dose: 1 applic Bacitracin (Bacitracin) 1 ea TOP TID [facility] Last Admin: 09/01/17 08:50 Dose: 1 ea Bumetanide (Bumex) 1 mg PO BID [facility] Last Admin: 09/01/17 08:49 Dose: 1 mg Calcitriol (Rocaltrol) 0.25 mcg PO FRI [facility] Dextrose (Dextrose 50% Inj) 0 ml IV STAT PRN; Protocol PRN Reason: Hypoglycemia Protocol Dextrose (Glutose 15) 0 gm PO ONCE PRN; Protocol PRN Reason: Hypoglycemia Protocol Diltiazem HCl (Cardizem Cd) 360 mg PO DAILY [facility] Last Admin: 09/01/17 08:49 Dose: 360 mg Ergocalciferol (Drisdol 50,000 Intl Units Cap) 1 cap PO Q7D [facility] Glucagon (Glucagen Diagnostic Kit) 0 mg IM STAT PRN; Protocol PRN Reason: Hypoglycemia Protocol Heparin Sodium (Porcine) (Heparin) 5,000 units SC Q12 [facility] PRN Reason: Protocol Last Admin: 09/01/17 08:56 Dose: Not Given Hydralazine HCl (Apresoline) 75 mg PO Q8H [facility] Sodium Chloride (Sodium Chloride 0.9%) 1,000 mls @ 75 mls/hr IV .[id number] [facility] Stop: 09/02/17 12:39 Insulin Human Regular (Humulin R) 0 units SC ACHS [facility] PRN Reason: Protocol Last Admin: 09/01/17 06:58 Dose: Not Given Lactic Acid (Lac-Hydrin 12% Lotion (225 G)) 1 applic TOP TID [facility] Last Admin: 09/01/17 08:48 Dose: 1 applic Levetiracetam (Keppra) 500 mg PO Q12H [facility] Last Admin: 09/01/17 09:09 Dose: 500 mg Levothyroxine Sodium (Synthroid) 50 mcg PO DAILY@0630 [facility] Last Admin: 09/01/17 06:55 Dose: 50 mcg Lidocaine (Lidoderm) 2 ea TD DAILY [facility] Last Admin: 09/01/17 08:51 Dose: 2 ea Lisinopril (Zestril) 40 mg PO DAILY [facility] Last Admin: 09/01/17 08:54 Dose: 40 mg Losartan Potassium (Cozaar) 50 mg PO DAILY [facility] Last Admin: 08/23/17 09:36 Dose: 50 mg Mirtazapine (Remeron) 30 mg PO HS [facility] Last Admin: 08/31/17 21:42 Dose: 30 mg Sodium Polystyrene Sulfonate (Kayexalate Susp) 15 gm PO DAILY [facility] Last Admin: 09/01/17 08:53 Dose: 15 gm Thiamine HCl (Vitamin B1 Tab) 100 mg PO DAILY [facility] Last Admin: 09/01/17 08:56 Dose: 100 mg - Labs Labs: 08/29/17 10:34 09/01/17 05:55 PT 15.3 Seconds (9.8-13.1) H 07/18/17 05:30 INR 1.4 (0.9-1.2) H 07/18/17 05:30 APTT 34.2 Seconds (25.6-37.1) 07/18/17 05:30 - Constitutional Appears: Well, No Acute Distress, Cachectic, Chronically Ill - Head Exam Head Exam: ATRAUMATIC - ENT Exam ENT Exam: Mucous Membranes Moist - Respiratory Exam Respiratory Exam: Clear to Ausculation Bilateral. absent: Rales, Wheezes - Cardiovascular Exam Cardiovascular Exam: REGULAR RHYTHM, +S1, +S2. absent: Murmur - GI/Abdominal Exam GI & Abdominal Exam: Soft, Normal Bowel Sounds. absent: Tenderness - Neurological Exam Neurological Exam: Alert, Awake, Oriented x3 - Psychiatric Exam Psychiatric exam: Normal Affect Assessment and Plan - Assessment and Plan (Free Text) Assessment: 67M, homeless, with profound health issues that are currently stabilized with a multitude of medications to include oxygen. He is not medically or financially stable for discharge to home at this time. Plan: #CKD -Secondary to nephrotic syndrome -Nephrology Consult (Dr Luz) greatly appreciated- c/w all recommendations to include stopping ARB, K+-5.1, re-check 3/5, BP has improved #Muscle pain -Pt intermittently complaining of muscle pain, in different locations -Tylenol 650mg PO Q6 #Hyperkalemia -5.6 today -Continue to monitor, am BNP -Nephrology, Dr. Davidson #HTN -BP stable, improved -C/w with antihypertensive regimen #DM -Endocrinology Consult (Dr Mann) appreciated- pt may have glucose impairment, but intermittent hypoglycemic episodes prompted cessation of Prandin and no further hypoglycemia HTN: Better controlled, will continue current medications and monitoring DVT Prophylaxis: SC Heparin
[2017-09-01] MEDS: Sodium Chloride 0.9% 1,000 ML IV SCH ×2 (13:56→23:55)
[2017-09-01 17:30] LABS: URINE BILIRUBIN NEGATIVE (NEGATIVE); URINE BLOOD NEGATIVE (NEGATIVE); URINE CLARITY CLEAR (Clear); URINE COLOR STRAW (YELLOW); URINE GLUCOSE (UA) 150 mg/dL (Normal); URINE LEUKOCYTE ESTERASE SMALL Leu/uL (Negative); URINE PROTEIN >=500 mg/dL (NEGATIVE); URINE UROBILINOGEN 0.2-1.0 mg/dL (0.2-1.0)
--- NOTE | 2017-09-01 18:33 | PN ---
ENDOCRINOLOGY FOLLOWUP NOTE DATE: LOCATION: In room 661 SUBJECTIVE: This is a 67-year-old male with recent uncontrolled type 2 diabetes, now with improved glycemic profile and currently has been taken off oral hypoglycemic therapy as noted. His glucose levels have ranged from 91 to 164 mg/dL. His latest chemistry showed a BUN of 64, sodium 142, potassium 5.6, chloride 107, CO2 of 24, glucose 84, and creatinine 2.4. So, at this time, we will continue the low-dose correction scale using regular insulin as given and hold off the resumption of his oral hypoglycemic therapy for now. We will obtain serial chemistries and supplement accordingly as needed. We will follow. Bettina Mann MD
[2017-09-02] MEDS: Levothyroxine 50 MCG TAB PO SCH (06:25)
[2017-09-02 07:10] LABS: ALB/GLOB RATIO 0.8 (1.0-2.1); ALBUMIN 2.4 g/dL (3.5-5.0); ALT/SGPT 30 U/L (21-72); AST/SGOT 18 U/L (17-59); BLOOD UREA NITROGEN 64 mg/dl (9-20); CALCIUM 8.2 mg/dL (8.4-10.2); GFR AFRICAN-AMERICAN 38; GFR NON-AFRICAN AMERICAN 32
[2017-09-02] MEDS: Acetylcysteine 20% Inhal Soln (4ml) INH SCH (07:16)
[2017-09-02] MEDS: Insulin Regular 100 units/ml SC SCH ×5 (08:25→22:06)
[2017-09-02] MEDS: Sod Polystyrene Sulf 15 gm/60 ml Susp PO SCH (08:34)
[2017-09-02] MEDS: diltiaZEM 180 mg/24 Hours CD Cap PO SCH (08:34)
[2017-09-02] MEDS: Bacitracin 500 Units/gm Oint Foilpak UD TOP SCH ×3 (08:49→17:09)
[2017-09-02] MEDS: Lidocaine 5% Patch TD SCH (08:52)
[2017-09-02] MEDS: Ergocalciferol 50,000 Intl Units Cap PO SCH (08:52)
[2017-09-02] MEDS: Bacitracin OINT 15GM TOP SCH (08:53)
[2017-09-02] MEDS: levETIRAcetam 100 mg/ml (5ml) Oral Syringe PO SCH ×2 (09:07→22:05)
--- NOTE | 2017-09-02 09:21 | CP.PCM.PN ---
Subjective - Date & Time of Evaluation Date of Evaluation: 09/02/17 Time of Evaluation: 08:00 - Subjective Subjective: No acute overnight events. Pt seen sleeping in bed comfortably. No complaints. States he feels better today. Denied pain. Ambulating. Urinating normally. Regular BM. Tolerating diet. Objective - Vital Signs/Intake and Output Vital Signs (last 24 hours): Temp Pulse Resp BP Pulse Ox 97.3 F L 71 20 164/79 H 96 09/02/17 07:43 09/02/17 08:50 09/02/17 07:43 09/02/17 08:50 09/02/17 07:43 - Medications Medications: Current Medications Acetylcysteine (Acetylcysteine 20%) 2 ml INH RBID [facility] Last Admin: 09/02/17 07:16 Dose: Not Given Amlodipine Besylate (Norvasc) 5 mg PO Q12H [facility] Last Admin: 09/02/17 08:35 Dose: 5 mg Bacitracin (Bacitracin Oint) 1 applic TOP DAILY [facility] Last Admin: 09/02/17 08:53 Dose: 1 applic Bacitracin (Bacitracin) 1 ea TOP TID [facility] Last Admin: 09/02/17 08:49 Dose: 1 ea Bumetanide (Bumex) 1 mg PO BID [facility] Last Admin: 09/02/17 08:47 Dose: 1 mg Calcitriol (Rocaltrol) 0.25 mcg PO FRI [facility] Calcium Acetate (Phoslo) 667 mg PO WM [facility] Dextrose (Dextrose 50% Inj) 0 ml IV STAT PRN; Protocol PRN Reason: Hypoglycemia Protocol Dextrose (Glutose 15) 0 gm PO ONCE PRN; Protocol PRN Reason: Hypoglycemia Protocol Diltiazem HCl (Cardizem Cd) 360 mg PO DAILY [facility] Last Admin: 09/02/17 08:34 Dose: 360 mg Ergocalciferol (Drisdol 50,000 Intl Units Cap) 1 cap PO Q7D [facility] Last Admin: 09/02/17 08:52 Dose: 1 cap Glucagon (Glucagen Diagnostic Kit) 0 mg IM STAT PRN; Protocol PRN Reason: Hypoglycemia Protocol Heparin Sodium (Porcine) (Heparin) 5,000 units SC Q12 [facility] PRN Reason: Protocol Last Admin: 09/01/17 21:02 Dose: 5,000 units Hydralazine HCl (Apresoline) 75 mg PO Q8H [facility] Last Admin: 09/02/17 06:25 Dose: 75 mg Insulin Human Regular (Humulin R) 0 units SC ACHS [facility] PRN Reason: Protocol Last Admin: 09/01/17 22:00 Dose: Not Given Lactic Acid (Lac-Hydrin 12% Lotion (225 G)) 1 applic TOP TID [facility] Last Admin: 09/02/17 08:49 Dose: 1 applic Levetiracetam (Keppra) 500 mg PO Q12H [facility] Last Admin: 09/01/17 21:02 Dose: 500 mg Levothyroxine Sodium (Synthroid) 50 mcg PO DAILY@0630 [facility] Last Admin: 09/02/17 06:25 Dose: 50 mcg Lidocaine (Lidoderm) 2 ea TD DAILY [facility] Last Admin: 09/02/17 08:52 Dose: 2 ea Lisinopril (Zestril) 40 mg PO DAILY [facility] Last Admin: 09/02/17 08:50 Dose: 40 mg Losartan Potassium (Cozaar) 50 mg PO DAILY [facility] Last Admin: 08/23/17 09:36 Dose: 50 mg Mirtazapine (Remeron) 30 mg PO HS [facility] Last Admin: 09/01/17 21:03 Dose: 30 mg Sodium Polystyrene Sulfonate (Kayexalate Susp) 15 gm PO DAILY [facility] Last Admin: 09/02/17 08:34 Dose: 15 gm Thiamine HCl (Vitamin B1 Tab) 100 mg PO DAILY [facility] Last Admin: 09/02/17 08:51 Dose: 100 mg - Labs Labs: 08/29/17 10:34 09/02/17 05:50 PT 15.3 Seconds (9.8-13.1) H 07/18/17 05:30 INR 1.4 (0.9-1.2) H 07/18/17 05:30 APTT 34.2 Seconds (25.6-37.1) 07/18/17 05:30 - Constitutional Appears: Well, Non-toxic, Cachectic, Chronically Ill - ENT Exam ENT Exam: Mucous Membranes Moist - Respiratory Exam Respiratory Exam: Clear to Ausculation Bilateral. absent: Rales, Wheezes - Cardiovascular Exam Cardiovascular Exam: REGULAR RHYTHM, +S1, +S2. absent: Murmur - GI/Abdominal Exam GI & Abdominal Exam: Soft, Normal Bowel Sounds. absent: Distended, Tenderness - Extremities Exam Extremities Exam: Normal Inspection - Neurological Exam Neurological Exam: Alert, Awake, Normal Gait - Skin Skin Exam: Normal Color Assessment and Plan - Assessment and Plan (Free Text) Assessment: 67M, homeless, with profound health issues that are currently stabilized with a multitude of medications to include oxygen. He is not medically or financially stable for discharge to home at this time. Plan: #HTN, uncontrolled -BP 160's -Hydralazine started yesterday -C/w with antihypertensive regimen -Losartan was held bc of elevated potassium, but may be started with improvement in potassium levels -Will continue to monitor #CKD -Secondary to nephrotic syndrome -Nephrology Consult (Dr Luz) greatly appreciated- c/w all recommendations #Hyperkalemia, improved -5.1 today -Losartan held, avoid bblocker -Continue to monitor, am BNP -Daily kayexelate, pt refusing -Nephrology, Dr. Luz #hyperphosphatemia -6.5 today -Phoslo stared as per collin #Muscle pain, resolved -Pt intermittently complaining of muscle pain, in different locations -Tylenol 650mg PO Q6 #DM -Endocrinology Consult (Dr Mann) appreciated- pt may have glucose impairment, but intermittent hypoglycemic episodes prompted cessation of Prandin and no further hypoglycemia -Pt refusing accuchecks DVT Prophylaxis: -SC Heparin. Pt refusing heparin. Ambulating
--- NOTE | 2017-09-02 13:30 | PN ---
DATE: ENDO FOLLOWUP NOTE LOCATION: Room 661. SUBJECTIVE: This is a 66-year-old male with recent uncontrolled type 2 diabetes, now improved glycemic profile as noted overnight. His glucose values have ranged from 97 mg/dL to 164 mg/dL. His latest chemistry showed BUN of 64, sodium of 142, potassium of 5.1, chloride of 107, CO2 of 24, glucose of 97, and creatinine of 2.1. So at this time, we will continue the low-dose correction scale using regular insulin as ordered. We will also hold off the resumption of his oral hypoglycemic drug therapy as given. We will obtain serial chemistries and supplement accordingly as needed. We will follow. Bettina Mann MD
[2017-09-03] MEDS: Lidocaine 5% Patch TD SCH (08:29)
[2017-09-03] MEDS: Bacitracin OINT 15GM TOP SCH (08:30)
[2017-09-03] MEDS: Bacitracin 500 Units/gm Oint Foilpak UD TOP SCH ×3 (08:30→16:47)
[2017-09-03] MEDS: Levothyroxine 50 MCG TAB PO SCH (08:35)
[2017-09-03] MEDS: diltiaZEM 180 mg/24 Hours CD Cap PO SCH (08:35)
[2017-09-03] MEDS: Sod Polystyrene Sulf 15 gm/60 ml Susp PO SCH (08:46)
[2017-09-03] MEDS: levETIRAcetam 100 mg/ml (5ml) Oral Syringe PO SCH ×2 (09:00→21:20)
--- NOTE | 2017-09-03 11:00 | CP.PCM.PN ---
Subjective - Date & Time of Evaluation Date of Evaluation: 09/03/17 Time of Evaluation: 10:56 - Subjective Subjective: Patient had 2 BM yesterday, 1 more this morning; refused kayexalate today and meds overnight; Objective - Vital Signs/Intake and Output Vital Signs (last 24 hours): Temp Pulse Resp BP Pulse Ox 98.3 F 84 20 177/75 H 95 09/03/17 07:49 09/03/17 07:49 09/03/17 07:49 09/03/17 07:49 09/03/17 07:49 - Medications Medications: Current Medications Amlodipine Besylate (Norvasc) 5 mg PO Q12H [facility] Last Admin: 09/03/17 08:34 Dose: 5 mg Bacitracin (Bacitracin Oint) 1 applic TOP DAILY [facility] Last Admin: 09/03/17 08:30 Dose: 1 applic Bacitracin (Bacitracin) 1 ea TOP TID [facility] Last Admin: 09/03/17 08:30 Dose: 1 ea Bumetanide (Bumex) 1 mg PO BID [facility] Last Admin: 09/03/17 08:35 Dose: 1 mg Calcitriol (Rocaltrol) 0.25 mcg PO FRI [facility] Calcium Acetate (Phoslo) 667 mg PO WM [facility] Last Admin: 09/03/17 08:33 Dose: 667 mg Diltiazem HCl (Cardizem Cd) 360 mg PO DAILY [facility] Last Admin: 09/03/17 08:35 Dose: 360 mg Ergocalciferol (Drisdol 50,000 Intl Units Cap) 1 cap PO Q7D [facility] Last Admin: 09/02/17 08:52 Dose: 1 cap Heparin Sodium (Porcine) (Heparin) 5,000 units SC Q12 [facility] PRN Reason: Protocol Last Admin: 09/03/17 08:31 Dose: Not Given Hydralazine HCl (Apresoline) 100 mg PO Q8H [facility] Last Admin: 09/03/17 05:46 Dose: Not Given Lactic Acid (Lac-Hydrin 12% Lotion (225 G)) 1 applic TOP TID [facility] Last Admin: 09/03/17 08:34 Dose: 1 applic Levetiracetam (Keppra) 500 mg PO Q12H [facility] Last Admin: 09/03/17 09:00 Dose: 500 mg Levothyroxine Sodium (Synthroid) 50 mcg PO DAILY@0630 [facility] Last Admin: 09/03/17 08:35 Dose: 50 mcg Lidocaine (Lidoderm) 2 ea TD DAILY [facility] Last Admin: 09/03/17 08:29 Dose: 2 ea Lisinopril (Zestril) 40 mg PO DAILY [facility] Last Admin: 09/03/17 08:33 Dose: 40 mg Losartan Potassium (Cozaar) 50 mg PO DAILY [facility] Last Admin: 08/23/17 09:36 Dose: 50 mg Mirtazapine (Remeron) 30 mg PO HS [facility] Last Admin: 09/02/17 22:04 Dose: Not Given Sodium Polystyrene Sulfonate (Kayexalate Susp) 15 gm PO DAILY [facility] Last Admin: 09/03/17 08:46 Dose: Not Given Thiamine HCl (Vitamin B1 Tab) 100 mg PO DAILY [facility] Last Admin: 09/03/17 08:33 Dose: 100 mg - Labs Labs: 08/29/17 10:34 09/02/17 05:50 PT 15.3 Seconds (9.8-13.1) H 07/18/17 05:30 INR 1.4 (0.9-1.2) H 07/18/17 05:30 APTT 34.2 Seconds (25.6-37.1) 07/18/17 05:30 - Constitutional Appears: Non-toxic, No Acute Distress - Eye Exam Eye Exam: absent: Scleral icterus - Respiratory Exam Respiratory Exam: Clear to Ausculation Bilateral. absent: Respiratory Distress - Cardiovascular Exam Cardiovascular Exam: RRR, +S1, +S2 - GI/Abdominal Exam GI & Abdominal Exam: Soft. absent: Distended, Tenderness - Exam Exam: absent: Bladder Distension - Extremities Exam Additional comments: minimal lower leg edema b/l - Neurological Exam Neurological Exam: Alert, Awake - Psychiatric Exam Psychiatric exam: absent: Agitated - Skin Skin Exam: Warm. absent: Cyanosis Assessment and Plan (1) Hyperkalemia Assessment & Plan: Mild but persistent with patient getting kayexalate intermittently; can give florinef 0.1 mg periodically as well with extra bumex 1 mg dose; Status: Acute (2) Malnutrition Assessment & Plan: Still marked hypoalbuminemia in the setting of nephrotic syndrome; protein restriction discontinued; consider daily protein supplement; Status: Acute (3) Hypertensive CKD (chronic kidney disease) Assessment & Plan: BP uncontrolled; hydralazine dose increased further although patient not always compliant; continue rest of meds; checking sujit/renin level to better assess intravascular volume status; Status: Acute (4) Chronic kidney disease, stage 3 (moderate) Assessment & Plan: Serum creatinine fluctuating due to hemodynamic factors; avoid nephrotoxic agents; continue to maintain adequate BP and glycemic control; Status: Chronic (5) Acute renal failure Status: Resolved (6) Nephrotic syndrome Status: Chronic (7) Pleural effusion Assessment & Plan: Stable, monitor; Status: Chronic (8) Hypothermia Status: Acute (9) Altered mental status Status: Acute (10) SIRS (systemic inflammatory response syndrome) Status: Acute (11) Anemia Assessment & Plan: Hgb dropping off EPO, will monitor and restart EPO if hgb drops further (goal 10 -11g); Status: Chronic (12) Monoclonal gammopathy Status: Chronic (13) Hypernatremia Status: Acute (14) Chronic kidney disease-mineral and bone disorder Assessment & Plan: On calcitriol and ergocalciferol, will monitor PTH level monthly; Status: Chronic
--- NOTE | 2017-09-03 12:13 | CP.PCM.PN ---
Subjective - Date & Time of Evaluation Date of Evaluation: 09/03/17 Time of Evaluation: 08:00 - Subjective Subjective: Seem and evaluated at the bedside this morning. Pt states he often refuses medication because he feels it is giving him diarrhea. I spoke with pt about the importance of taking antihypertensives. Pt states he would comply but does not want to take the "one for potassium." Tolerating diet. Normal urination. Ambulating to go to chair. Objective - Vital Signs/Intake and Output Vital Signs (last 24 hours): Temp Pulse Resp BP Pulse Ox 98.3 F 84 20 177/75 H 95 09/03/17 07:49 09/03/17 07:49 09/03/17 07:49 09/03/17 07:49 09/03/17 07:49 - Medications Medications: Current Medications Amlodipine Besylate (Norvasc) 5 mg PO Q12H [facility] Last Admin: 09/03/17 08:34 Dose: 5 mg Bacitracin (Bacitracin Oint) 1 applic TOP DAILY [facility] Last Admin: 09/03/17 08:30 Dose: 1 applic Bacitracin (Bacitracin) 1 ea TOP TID [facility] Last Admin: 09/03/17 08:30 Dose: 1 ea Bumetanide (Bumex) 1 mg PO BID [facility] Last Admin: 09/03/17 08:35 Dose: 1 mg Calcitriol (Rocaltrol) 0.25 mcg PO FRI [facility] Calcium Acetate (Phoslo) 667 mg PO WM [facility] Last Admin: 09/03/17 08:33 Dose: 667 mg Diltiazem HCl (Cardizem Cd) 360 mg PO DAILY [facility] Last Admin: 09/03/17 08:35 Dose: 360 mg Ergocalciferol (Drisdol 50,000 Intl Units Cap) 1 cap PO Q7D [facility] Last Admin: 09/02/17 08:52 Dose: 1 cap Heparin Sodium (Porcine) (Heparin) 5,000 units SC Q12 [facility] PRN Reason: Protocol Last Admin: 09/03/17 08:31 Dose: Not Given Hydralazine HCl (Apresoline) 100 mg PO Q8H [facility] Last Admin: 09/03/17 05:46 Dose: Not Given Lactic Acid (Lac-Hydrin 12% Lotion (225 G)) 1 applic TOP TID [facility] Last Admin: 09/03/17 08:34 Dose: 1 applic Levetiracetam (Keppra) 500 mg PO Q12H [facility] Last Admin: 09/03/17 09:00 Dose: 500 mg Levothyroxine Sodium (Synthroid) 50 mcg PO DAILY@0630 [facility] Last Admin: 09/03/17 08:35 Dose: 50 mcg Lidocaine (Lidoderm) 2 ea TD DAILY [facility] Last Admin: 09/03/17 08:29 Dose: 2 ea Lisinopril (Zestril) 40 mg PO DAILY [facility] Last Admin: 09/03/17 08:33 Dose: 40 mg Losartan Potassium (Cozaar) 50 mg PO DAILY [facility] Last Admin: 08/23/17 09:36 Dose: 50 mg Mirtazapine (Remeron) 30 mg PO HS [facility] Last Admin: 09/02/17 22:04 Dose: Not Given Sodium Polystyrene Sulfonate (Kayexalate Susp) 15 gm PO DAILY [facility] Last Admin: 09/03/17 08:46 Dose: Not Given Thiamine HCl (Vitamin B1 Tab) 100 mg PO DAILY [facility] Last Admin: 09/03/17 08:33 Dose: 100 mg - Labs Labs: 08/29/17 10:34 09/02/17 05:50 PT 15.3 Seconds (9.8-13.1) H 07/18/17 05:30 INR 1.4 (0.9-1.2) H 07/18/17 05:30 APTT 34.2 Seconds (25.6-37.1) 07/18/17 05:30 - Constitutional Appears: Well, Non-toxic, Cachectic, Chronically Ill - ENT Exam ENT Exam: Mucous Membranes Moist - Respiratory Exam Respiratory Exam: Clear to Ausculation Bilateral. absent: Rales, Wheezes - Cardiovascular Exam Cardiovascular Exam: REGULAR RHYTHM. absent: +S1, +S2 - GI/Abdominal Exam GI & Abdominal Exam: Soft. absent: Distended, Tenderness - Extremities Exam Extremities Exam: Normal Inspection - Neurological Exam Neurological Exam: Alert, Awake, Oriented x3 - Psychiatric Exam Psychiatric exam: Normal Affect Assessment and Plan - Assessment and Plan (Free Text) Assessment: 67M, homeless, with profound health issues that are currently stabilized with a multitude of medications to include oxygen. He is not medically or financially stable for discharge to home at this time. Plan: #HTN, uncontrolled -BP 160's overnight. -Isobutylene Operator Chief, Dr. Luz on board. Increased hydralazine but pt has been refusing meds. Lorne/Renin levels sent to better assess intravascular volume status. Consultation greatly appreciated. -C/w with antihypertensive regimen -Will continue to monitor and continue to encourage and educate patient on antihypertensive medication #CKD -Secondary to nephrotic syndrome -Nephrology Consult (Dr Luz) greatly appreciated- c/w all recommendations -Avoid nephrotoxic meds #Hyperkalemia, resolved -3.8 today -Continue to monitor, am BNP -Kayexelate d/c'd -Nephrology, Dr. Luz #Hyperphosphatemia -6.5 today -c/w phosplo #Muscle pain, resolved -Pt intermittently complaining of muscle pain, in different locations -Tylenol 650mg PO Q6 -Will speak to Pt regarding what parameters limit physical therapy session. Pt states he is willing to cooperate. #DM -Endocrinology Consult (Dr Mann) appreciated- pt may have glucose impairment, but intermittent hypoglycemic episodes prompted cessation of Prandin and no further hypoglycemia -Hga1c= 5.7 on 08/19. POCG wnl. Insulin, ISS, hypoglycemic protocol, and Accuchecks d/c'd for now. Will reassess in 2 weeks DVT Prophylaxis: -SC Heparin. Pt refusing heparin. Ambulating
[2017-09-03 12:29] LABS: HEMOGLOBIN 10.8 g/dL (12.0-18.0); MEAN CELL VOLUME 87.2 fl (80.0-94.0); MEAN CORPUSCULAR HEMOGLOBIN 28.7 pg (27.0-31.0); MEAN CORPUSCULAR HGB CONC 32.9 g/dL (33.0-37.0); RBC 3.75 Mil/uL (4.40-5.90); RED CELL DISTRIBUTION WIDTH 17.4 % (11.5-14.5); WHITE BLOOD COUNT 7.4 K/uL (4.8-10.8)
--- NOTE | 2017-09-03 15:33 | PN ---
DATE: ENDO FOLLOWUP NOTE LOCATION: Room 661. SUBJECTIVE: This is a 66-year-old male with recent uncontrolled type 2 insulin-requiring diabetes, now taken off all insulin therapy and given oral hypoglycemic therapy with improved glycemic profile as noted thereof. His glucose levels have ranged from 158 mg/dL to 164 mg/dL. His latest chemistries showed BUN of 62, sodium of 144, potassium of 3.8, chloride of 108, CO2 of 24, glucose of 177, and creatinine of 2.0. So at this time, we will continue the low-dose correction scale using regular insulin as ordered. We are holding off the resumption of any kind of oral hypoglycemic drug therapy because of the near optimal metabolic profile as noted thereof with underlying very poor and variable oral intake at this time. We will obtain serial chemistries and supplement accordingly as needed. We will follow. Bettina Mann MD
[2017-09-04] MEDS: diltiaZEM 180 mg/24 Hours CD Cap PO SCH ×2 (09:01→15:26)
[2017-09-04] MEDS: Sod Polystyrene Sulf 15 gm/60 ml Susp PO SCH (09:01)
[2017-09-04] MEDS: Levothyroxine 50 MCG TAB PO SCH (09:03)
[2017-09-04] MEDS: levETIRAcetam 100 mg/ml (5ml) Oral Syringe PO SCH ×3 (09:05→22:46)
[2017-09-04] MEDS: Lidocaine 5% Patch TD SCH (09:06)
[2017-09-04] MEDS: Bacitracin OINT 15GM TOP SCH (13:01)
--- NOTE | 2017-09-04 13:20 | CP.PCM.HP ---
Past Patient History - Infectious Disease Hx of Infectious Diseases: None - Tetanus Immunizations Tetanus Immunization: Unknown - Past Medical History & Family History Past Medical History?: Yes - Past Social History Alcohol: None Drugs: Denies - CARDIAC Hx Cardiac Disorders: Yes Hx Hypertension: Yes - PULMONARY Hx Chronic Obstructive Pulmonary Disease (COPD): No - NEUROLOGICAL HX Cerebrovascular Accident: No - HEENT Hx HEENT Problems: No - RENAL Hx Renal Failure: Yes (CKD stage 3, nephrotic syndrome) - ENDOCRINE/METABOLIC Hx Diabetes Mellitus Type 2: Yes - HEMATOLOGICAL/ONCOLOGICAL Hx Anemia: Yes Hx Human Immunodeficiency Virus (HIV): No Hx Sickle Cell Disease: No - INTEGUMENTARY Hx Dermatological Problems: No - MUSCULOSKELETAL/RHEUMATOLOGICAL Hx Arthritis: No Hx Rheumatoid Arthritis: No - GASTROINTESTINAL Hx Crohn's Disease: No Hx Diverticulitis: No Hx Gall Bladder Disease: No Hx Gastritis: No Hx Pancreatitis: No - GENITOURINARY/GYNECOLOGICAL Hx Genitourinary Disorders: No - PSYCHIATRIC Hx Anxiety: Yes Hx Bipolar Disorder: Yes Hx Depression: Yes Hx Paranoia: No Hx Post Traumatic Stress Disorder: No Hx Schizophrenia: No - SURGICAL HISTORY Hx Surgeries: No - ANESTHESIA Hx Anesthesia: Yes Hx Anesthesia Reactions: No Hx Malignant Hyperthermia: No Meds Allergies/Adverse Reactions: Allergies Allergy/AdvReac Type Severity Reaction Status Date / Time No Known Allergies Allergy Verified 05/21/17 16:02 Results - Vital Signs Recent Vital Signs: Last Vital Signs Temp 98.1 F 09/04/17 08:03 Pulse 86 09/04/17 08:03 Resp 20 09/04/17 08:03 BP 163/72 H 09/04/17 08:03 Pulse Ox 96 09/04/17 08:03 - Labs Result Diagrams: 09/03/17 11:04 09/03/17 11:04 Labs: Laboratory Results - last 24 hr 09/03/17 16:02 POC Glucose (mg/dL) 183 H
--- NOTE | 2017-09-04 15:44 | CP.PCM.PN ---
Subjective - Date & Time of Evaluation Date of Evaluation: 09/04/17 Time of Evaluation: 08:00 - Subjective Subjective: Pt seen and examined this morning at the bedside. Pt reports lower cramping abdominal pain and increased bm. Denies n/v, chills. Pt has been refusing meds as per RN. Pt states he does not want to take his medication because it gives him diarrhea. I explained to patient that we are no longer giving him kayexelate as his potassium is normal. Pt states he will be more agreeable to taking medication. Pt was given Tyelenol and reassessed after 30min. States he is comfrotable. Objective - Vital Signs/Intake and Output Vital Signs (last 24 hours): Temp Pulse Resp BP Pulse Ox 97.8 F 86 20 181/77 H 96 09/04/17 15:42 09/04/17 15:42 09/04/17 15:42 09/04/17 15:42 09/04/17 15:42 - Medications Medications: Current Medications Acetaminophen (Tylenol 325mg Tab) 650 mg PO Q6 PRN PRN Reason: Pain, Mild (1-3) Last Admin: 09/04/17 09:19 Dose: 650 mg Amlodipine Besylate (Norvasc) 5 mg PO Q12H [facility] Last Admin: 09/04/17 09:02 Dose: Not Given Bacitracin (Bacitracin Oint) 1 applic TOP DAILY [facility] Last Admin: 09/04/17 13:01 Dose: 1 applic Bacitracin (Bacitracin) 1 ea TOP TID [facility] Last Admin: 09/03/17 16:47 Dose: 1 ea Bumetanide (Bumex) 1 mg PO BID [facility] Last Admin: 09/04/17 15:25 Dose: 1 mg Calcitriol (Rocaltrol) 0.25 mcg PO FRI [facility] Calcium Acetate (Phoslo) 667 mg PO WM [facility] Last Admin: 09/04/17 15:28 Dose: 667 mg Diltiazem HCl (Cardizem Cd) 360 mg PO DAILY [facility] Last Admin: 09/04/17 15:26 Dose: 360 mg Ergocalciferol (Drisdol 50,000 Intl Units Cap) 1 cap PO Q7D [facility] Last Admin: 09/02/17 08:52 Dose: 1 cap Heparin Sodium (Porcine) (Heparin) 5,000 units SC Q12 [facility] PRN Reason: Protocol Last Admin: 09/04/17 15:29 Dose: 5,000 units Hydralazine HCl (Apresoline) 100 mg PO Q8H [facility] Last Admin: 09/04/17 15:23 Dose: 100 mg Lactic Acid (Lac-Hydrin 12% Lotion (225 G)) 1 applic TOP TID [facility] Last Admin: 09/04/17 13:00 Dose: 1 applic Levetiracetam (Keppra) 500 mg PO Q12H [facility] Last Admin: 09/04/17 15:27 Dose: 500 mg Levothyroxine Sodium (Synthroid) 50 mcg PO DAILY@0630 [facility] Last Admin: 09/04/17 09:03 Dose: Not Given Lidocaine (Lidoderm) 2 ea TD DAILY [facility] Last Admin: 09/04/17 09:06 Dose: 2 ea Lisinopril (Zestril) 40 mg PO DAILY [facility] Last Admin: 09/04/17 15:29 Dose: 40 mg Losartan Potassium (Cozaar) 50 mg PO DAILY [facility] Last Admin: 08/23/17 09:36 Dose: 50 mg Mirtazapine (Remeron) 30 mg PO HS [facility] Last Admin: 09/03/17 21:21 Dose: Not Given Sodium Polystyrene Sulfonate (Kayexalate Susp) 15 gm PO DAILY [facility] Last Admin: 09/04/17 09:01 Dose: Not Given Thiamine HCl (Vitamin B1 Tab) 100 mg PO DAILY [facility] Last Admin: 09/04/17 15:28 Dose: 100 mg - Labs Labs: 09/03/17 11:04 09/03/17 11:04 PT 15.3 Seconds (9.8-13.1) H 07/18/17 05:30 INR 1.4 (0.9-1.2) H 07/18/17 05:30 APTT 34.2 Seconds (25.6-37.1) 07/18/17 05:30 - Constitutional Appears: Well, Non-toxic, Cachectic, Chronically Ill - ENT Exam ENT Exam: Mucous Membranes Moist - Respiratory Exam Respiratory Exam: Clear to Ausculation Bilateral. absent: Rales, Wheezes - Cardiovascular Exam Cardiovascular Exam: REGULAR RHYTHM, +S1, +S2. absent: Murmur - GI/Abdominal Exam GI & Abdominal Exam: Soft, Tenderness (Mild tenderness in left ), Normal Bowel Sounds - Back Exam Back Exam: NORMAL INSPECTION - Neurological Exam Neurological Exam: Alert, Awake. absent: Oriented x3 Assessment and Plan - Assessment and Plan (Free Text) Assessment: 67M, homeless, with profound health issues that are currently stabilized with a multitude of medications to include oxygen. He is not medically or financially stable for discharge to home at this time. Plan: #HTN, uncontrolled -BP 160's overnight. -Patient Assessment Coordinator, Dr. Luz on board. Increased hydralazine but pt has been refusing meds. Lorne/Renin levels sent to better assess intravascular volume status. Consultation greatly appreciated. -C/w with antihypertensive regimen -Will continue to monitor and continue to encourage and educate patient on antihypertensive medication #Increased BM -likely side effect 2/2 to kayexelate. Las dose >48hrs ago, perhaps residual effect -no fever, white count -C diff toxin and stool studies sent -continue to monitor #CKD -Secondary to nephrotic syndrome -Nephrology Consult (Dr Luz) greatly appreciated- c/w all recommendations -Avoid nephrotoxic meds #Hyperkalemia, resolved -3.8 today -Continue to monitor, am BNP -Kayexelate d/c'd -Nephrology, Dr. Luz #Hyperphosphatemia -6.5 today -c/w phosplo #Muscle pain, resolved -Pt intermittently complaining of muscle pain, in different locations -Tylenol 650mg PO Q6 -Will speak to Pt regarding what parameters limit physical therapy session. Pt states he is willing to cooperate. #DM -Endocrinology Consult (Dr Mann) appreciated- pt may have glucose impairment, but intermittent hypoglycemic episodes prompted cessation of Prandin and no further hypoglycemia -Hga1c= 5.7 on 08/19. POCG wnl. Insulin, ISS, hypoglycemic protocol, and Accuchecks d/c'd for now. Will reassess in 2 weeks DVT Prophylaxis: -SC Heparin. Pt refusing heparin. Ambulating
--- NOTE | 2017-09-04 18:35 | PN ---
ENDOCRINOLOGY FOLLOWUP NOTE DATE: LOCATION: In room 661 SUBJECTIVE: This is a -izoz-til male with known history of type 2 diabetes and hypertension and also underlying hypothyroidism and is now being followed closely for metabolic management. His glycemic levels are near optimal as noted with glucose values ranging from 158 to 183 mg/dL. His latest chemistry showed a BUN of 62, sodium 144, potassium 3.8, chloride 108, CO2 of 24, glucose 177, and creatinine 2.0. So, at this time, we will continue the low-dose correction scale using regular insulin as ordered and we will hold off the resumption of any oral hypoglycemic drug therapy as given. We will obtain serial chemistries and serial thyroid studies and titrate his dose regimen accordingly. We will continue the levothyroxine given as 50 mcg once daily as ordered. We will follow. Bettina Mann MD
[2017-09-04] MEDS: Bacitracin 500 Units/gm Oint Foilpak UD TOP SCH (22:44)
[2017-09-05 07:14] LABS: MEAN CELL VOLUME 87.4 fl (80.0-94.0); MEAN CORPUSCULAR HEMOGLOBIN 27.8 pg (27.0-31.0); MEAN CORPUSCULAR HGB CONC 31.9 g/dL (33.0-37.0); RBC 3.96 Mil/uL (4.40-5.90); RED CELL DISTRIBUTION WIDTH 17.4 % (11.5-14.5); WHITE BLOOD COUNT 6.9 K/uL (4.8-10.8)
[2017-09-05 07:40] LABS: CALCIUM 8.3 mg/dL (8.4-10.2)
[2017-09-05] MEDS: Lidocaine 5% Patch TD SCH (08:37)
[2017-09-05] MEDS: Bacitracin 500 Units/gm Oint Foilpak UD TOP SCH ×3 (08:40→17:37)
[2017-09-05] MEDS: Bacitracin OINT 15GM TOP SCH (08:40)
[2017-09-05] MEDS: diltiaZEM 180 mg/24 Hours CD Cap PO SCH (08:41)
[2017-09-05] MEDS: Levothyroxine 50 MCG TAB PO SCH (08:43)
--- NOTE | 2017-09-05 10:29 | CP.PCM.PN ---
Subjective - Date & Time of Evaluation Date of Evaluation: 09/05/17 Time of Evaluation: 08:00 - Subjective Subjective: No acute overnight events. Patient seen and examined this morning. PT still complaining of diarrhea. Reports abdominal pain, improved from yesterday. Seen eating comfortably. Mild cough, non productive. No cp, sob, palpatations, LE edema, n/v, chills. Objective - Vital Signs/Intake and Output Vital Signs (last 24 hours): Temp Pulse Resp BP Pulse Ox 98.5 F 71 18 140/66 95 09/05/17 07:50 09/05/17 07:50 09/05/17 07:50 09/05/17 07:50 09/05/17 07:50 - Medications Medications: Current Medications Acetaminophen (Tylenol 325mg Tab) 650 mg PO Q6 PRN PRN Reason: Pain, Mild (1-3) Last Admin: 09/04/17 18:06 Dose: 650 mg Amlodipine Besylate (Norvasc) 10 mg PO DAILY [facility] Bacitracin (Bacitracin Oint) 1 applic TOP DAILY [facility] Last Admin: 09/05/17 08:40 Dose: 1 applic Bacitracin (Bacitracin) 1 ea TOP TID [facility] Last Admin: 09/05/17 08:40 Dose: 1 ea Bumetanide (Bumex) 1 mg PO BID [facility] Last Admin: 09/05/17 08:40 Dose: 1 mg Calcitriol (Rocaltrol) 0.25 mcg PO FRI [facility] Last Admin: 09/05/17 08:43 Dose: Not Given Calcium Acetate (Phoslo) 667 mg PO WM [facility] Last Admin: 09/05/17 08:43 Dose: 667 mg Diltiazem HCl (Cardizem Cd) 360 mg PO DAILY [facility] Last Admin: 09/05/17 08:41 Dose: 360 mg Doxazosin Mesylate (Cardura) 1 mg PO HS [facility] Last Admin: 09/05/17 03:51 Dose: Not Given Ergocalciferol (Drisdol 50,000 Intl Units Cap) 1 cap PO Q7D [facility] Last Admin: 09/02/17 08:52 Dose: 1 cap Heparin Sodium (Porcine) (Heparin) 5,000 units SC Q12 [facility] PRN Reason: Protocol Last Admin: 09/05/17 08:38 Dose: Not Given Hydralazine HCl (Apresoline) 100 mg PO Q8H [facility] Last Admin: 09/05/17 07:19 Dose: Not Given Lactic Acid (Lac-Hydrin 12% Lotion (225 G)) 1 applic TOP TID [facility] Last Admin: 09/05/17 08:54 Dose: 1 applic Levetiracetam (Keppra) 500 mg PO Q12H [facility] Last Admin: 09/04/17 22:46 Dose: Not Given Levothyroxine Sodium (Synthroid) 50 mcg PO DAILY@0630 [facility] Last Admin: 09/05/17 08:43 Dose: 50 mcg Lidocaine (Lidoderm) 2 ea TD DAILY [facility] Last Admin: 09/05/17 08:37 Dose: 2 ea Lisinopril (Zestril) 40 mg PO DAILY [facility] Last Admin: 09/05/17 08:43 Dose: 40 mg Losartan Potassium (Cozaar) 50 mg PO DAILY [facility] Last Admin: 08/23/17 09:36 Dose: 50 mg Mirtazapine (Remeron) 30 mg PO HS [facility] Last Admin: 09/04/17 22:47 Dose: Not Given Thiamine HCl (Vitamin B1 Tab) 100 mg PO DAILY [facility] Last Admin: 09/05/17 08:43 Dose: 100 mg - Labs Labs: 09/05/17 06:45 09/05/17 06:45 PT 15.3 Seconds (9.8-13.1) H 07/18/17 05:30 INR 1.4 (0.9-1.2) H 07/18/17 05:30 APTT 34.2 Seconds (25.6-37.1) 07/18/17 05:30 - Constitutional Appears: Non-toxic, No Acute Distress, Cachectic, Chronically Ill - ENT Exam ENT Exam: Mucous Membranes Moist - Respiratory Exam Respiratory Exam: Clear to Ausculation Bilateral. absent: Rales, Wheezes - Cardiovascular Exam Cardiovascular Exam: REGULAR RHYTHM, +S1, +S2. absent: Murmur - GI/Abdominal Exam GI & Abdominal Exam: Soft. absent: Distended, Tenderness - Extremities Exam Extremities Exam: Normal Capillary Refill, Normal Inspection - Neurological Exam Neurological Exam: Alert, Awake, Oriented x3 - Psychiatric Exam Psychiatric exam: Normal Affect - Skin Skin Exam: Normal Color Assessment and Plan - Assessment and Plan (Free Text) Assessment: Assessment: 67M, homeless, with profound health issues that are currently stabilized with a multitude of medications to include oxygen. He is not medically or financially stable for discharge to home at this time. Pt currently starting treatment for Cdiff. Plan: #HTN, uncontrolled -BP 150's overnight. -Transmission Repairer, Dr. Luz on board. Increased hydralazine but pt has been refusing meds. Lorne/Renin levels sent to better assess intravascular volume status. Consultation greatly appreciated. -C/w with antihypertensive regimen -Will continue to monitor and continue to encourage and educate patient on antihypertensive medication #Diarrhea -C diff + -Vanco po started -no fever, white count -C diff toxin and stool studies sent -continue to monitor #CKD -Secondary to nephrotic syndrome -Nephrology Consult (Dr Luz) greatly appreciated- c/w all recommendations -Avoid nephrotoxic meds #Hyperkalemia, resolved -4.0 today -Continue to monitor, am BNP -Nephrology, Dr. Luz #Hyperphosphatemia -6.5 -c/w phosplo #Muscle pain, resolved -Pt intermittently complaining of muscle pain, in different locations -Tylenol 650mg PO Q6 -Will speak to Pt regarding what parameters limit physical therapy session. Pt states he is willing to cooperate. #DM -Endocrinology Consult (Dr Mann) appreciated- pt may have glucose impairment, but intermittent hypoglycemic episodes prompted cessation of Prandin and no further hypoglycemia -Hga1c= 5.7 on 08/19. POCG wnl. Insulin, ISS, hypoglycemic protocol, and Accuchecks d/c'd for now. Will reassess in 2 weeks DVT Prophylaxis: -SC Heparin. Pt refusing heparin. Ambulating
[2017-09-05] MEDS: levETIRAcetam 100 mg/ml (5ml) Oral Syringe PO SCH ×2 (12:35→21:49)
[2017-09-05] MEDS: Vancomycin 500 mg (Oral/Rectal USE) PO SCH ×3 (13:00→21:49)
--- NOTE | 2017-09-05 13:52 | PN ---
DATE: ENDO FOLLOWUP NOTE LOCATION: Room 661. SUBJECTIVE: This is a 66-year-old male with recent uncontrolled type 2 diabetes, now taken off all oral hypoglycemic therapy because of the variability of his oral intake and the latest glucose levels have ranged from 158 mg/dL to 183 mg/dL. The latest chemistry showed BUN of 62, sodium of 144, potassium of 3.8, chloride of 108, CO2 of 24, glucose of 177, and creatinine of 2.0. So at this time, we will continue the low-dose correction scale using regular insulin as given and hold off the resumption of his oral hypoglycemic drug therapy as given. We will continue also the low-dose levothyroxine given as 50 mcg daily as ordered. We will obtain serial thyroid studies and adjust his dose regimen accordingly. Bettina Mann MD
--- NOTE | 2017-09-05 22:29 | CP.PCM.PN ---
Subjective - Date & Time of Evaluation Date of Evaluation: 09/05/17 Time of Evaluation: 17:45 - Subjective Subjective: Patient with multiple episodes of BM yesterday; none today; started on PO vanco today; otherwise, still not eating well, says the food makes him nauseous; Objective - Vital Signs/Intake and Output Vital Signs (last 24 hours): Temp Pulse Resp BP Pulse Ox 98.6 F 65 20 145/64 96 09/05/17 15:48 09/05/17 21:37 09/05/17 15:48 09/05/17 21:37 09/05/17 15:48 - Medications Medications: Current Medications Acetaminophen (Tylenol 325mg Tab) 650 mg PO Q6 PRN PRN Reason: Pain, Mild (1-3) Last Admin: 09/04/17 18:06 Dose: 650 mg Amlodipine Besylate (Norvasc) 10 mg PO DAILY [facility] Bacitracin (Bacitracin Oint) 1 applic TOP DAILY [facility] Last Admin: 09/05/17 08:40 Dose: 1 applic Bacitracin (Bacitracin) 1 ea TOP TID [facility] Last Admin: 09/05/17 17:37 Dose: Not Given Bumetanide (Bumex) 1 mg PO BID [facility] Last Admin: 09/05/17 17:36 Dose: 1 mg Calcitriol (Rocaltrol) 0.25 mcg PO FRI [facility] Last Admin: 09/05/17 08:43 Dose: Not Given Calcium Acetate (Phoslo) 667 mg PO WM [facility] Last Admin: 09/05/17 17:37 Dose: 667 mg Diltiazem HCl (Cardizem Cd) 360 mg PO DAILY [facility] Last Admin: 09/05/17 08:41 Dose: 360 mg Doxazosin Mesylate (Cardura) 1 mg PO HS [facility] Last Admin: 09/05/17 03:51 Dose: Not Given Ergocalciferol (Drisdol 50,000 Intl Units Cap) 1 cap PO Q7D [facility] Last Admin: 09/02/17 08:52 Dose: 1 cap Heparin Sodium (Porcine) (Heparin) 5,000 units SC Q12 [facility] PRN Reason: Protocol Last Admin: 09/05/17 21:27 Dose: Not Given Hydralazine HCl (Apresoline) 100 mg PO Q8H [facility] Last Admin: 09/05/17 21:37 Dose: 100 mg Lactic Acid (Lac-Hydrin 12% Lotion (225 G)) 1 applic TOP TID [facility] Last Admin: 09/05/17 17:36 Dose: 1 applic Levetiracetam (Keppra) 500 mg PO Q12H [facility] Last Admin: 09/05/17 21:49 Dose: 500 mg Levothyroxine Sodium (Synthroid) 50 mcg PO DAILY@0630 [facility] Last Admin: 09/05/17 08:43 Dose: 50 mcg Lidocaine (Lidoderm) 2 ea TD DAILY [facility] Last Admin: 09/05/17 08:37 Dose: 2 ea Lisinopril (Zestril) 40 mg PO DAILY [facility] Last Admin: 09/05/17 08:43 Dose: 40 mg Losartan Potassium (Cozaar) 50 mg PO DAILY [facility] Last Admin: 08/23/17 09:36 Dose: 50 mg Mirtazapine (Remeron) 30 mg PO HS [facility] Last Admin: 09/05/17 21:49 Dose: Not Given Thiamine HCl (Vitamin B1 Tab) 100 mg PO DAILY [facility] Last Admin: 09/05/17 08:43 Dose: 100 mg Vancomycin HCl (Vancocin (Oral/Rectal Use)) 125 mg PO QID [facility] PRN Reason: Protocol Last Admin: 09/05/17 21:49 Dose: 125 mg - Labs Labs: 09/05/17 06:45 09/05/17 06:45 PT 15.3 Seconds (9.8-13.1) H 07/18/17 05:30 INR 1.4 (0.9-1.2) H 07/18/17 05:30 APTT 34.2 Seconds (25.6-37.1) 07/18/17 05:30 - Constitutional Appears: Non-toxic, No Acute Distress, Cachectic - Eye Exam Eye Exam: absent: Scleral icterus - Respiratory Exam Respiratory Exam: Clear to Ausculation Bilateral. absent: Respiratory Distress Additional comments: decreased breath sounds at bases L > R - Cardiovascular Exam Cardiovascular Exam: RRR, +S1, +S2 - GI/Abdominal Exam GI & Abdominal Exam: Soft. absent: Distended, Tenderness - Extremities Exam Additional comments: no significant leg edema; - Neurological Exam Neurological Exam: Alert, Awake - Psychiatric Exam Psychiatric exam: absent: Agitated - Skin Skin Exam: Warm. absent: Cyanosis Assessment and Plan (1) Hyperkalemia Assessment & Plan: Currently resolved but in the setting of multiple BM; holding kayexalate for now ; monitor; Status: Acute (2) Malnutrition Assessment & Plan: Still not eating well; will start nepro supplement; Status: Acute (3) Hypertensive CKD (chronic kidney disease) Assessment & Plan: BP better controlled lately but in the setting of volume depletion/poor PO intake; monitor; continue current meds for now; holding off on cardura for now; Status: Acute (4) Chronic kidney disease, stage 3 (moderate) Assessment & Plan: Stable renal funciton, monitor; Status: Chronic (5) Acute renal failure Status: Resolved (6) Nephrotic syndrome Status: Chronic (7) Pleural effusion Status: Chronic (8) Hypothermia Status: Acute (9) Altered mental status Status: Acute (10) SIRS (systemic inflammatory response syndrome) Status: Acute (11) Anemia Assessment & Plan: Hgb stable, at upper limit of goal; will monitor and restart EPO at 4,000 u weekly; Status: Chronic (12) Monoclonal gammopathy Status: Chronic (13) Hypernatremia Status: Acute (14) Chronic kidney disease-mineral and bone disorder Assessment & Plan: Secondary hyperparathyroidism; continue calcitriol 0.25 mcg and ergocalciferol 50,000 u weekly; continue phoslo 1 tab w/ meals; Status: Chronic
[2017-09-06] MEDS: Levothyroxine 50 MCG TAB PO SCH (06:57)
[2017-09-06 07:09] LABS: HEMOGLOBIN 10.7 g/dL (12.0-18.0); MEAN CELL VOLUME 86.8 fl (80.0-94.0); MEAN CORPUSCULAR HEMOGLOBIN 28.5 pg (27.0-31.0); MEAN CORPUSCULAR HGB CONC 32.8 g/dL (33.0-37.0); RBC 3.74 Mil/uL (4.40-5.90); RED CELL DISTRIBUTION WIDTH 17.5 % (11.5-14.5); WHITE BLOOD COUNT 5.4 K/uL (4.8-10.8)
[2017-09-06 07:11] LABS: CALCIUM 8.4 mg/dL (8.4-10.2)
[2017-09-06 07:27] LABS: T4 5.81 ug/dl (5.5-11.0)
--- NOTE | 2017-09-06 08:14 | RAD ---
HISTORY: Chronic pleural effusion COMPARISON: 08/22/2017 FINDINGS: LUNGS: No active pulmonary disease. PLEURA: Stable left pleural effusion. CARDIOVASCULAR: Normal. OSSEOUS STRUCTURES: No significant abnormalities. VISUALIZED UPPER ABDOMEN: Normal. OTHER FINDINGS: Left PICC line in place. IMPRESSION: Stable left pleural effusion. Underlying mass not excluded.
[2017-09-06] MEDS: Lidocaine 5% Patch TD SCH ×2 (08:47→08:50)
[2017-09-06] MEDS: Bacitracin 500 Units/gm Oint Foilpak UD TOP SCH ×3 (08:50→16:52)
[2017-09-06] MEDS: Bacitracin OINT 15GM TOP SCH (08:50)
[2017-09-06] MEDS: levETIRAcetam 100 mg/ml (5ml) Oral Syringe PO SCH ×2 (09:03→21:16)
[2017-09-06] MEDS: Vancomycin 500 mg (Oral/Rectal USE) PO SCH ×4 (09:04→21:19)
[2017-09-06] MEDS: diltiaZEM 180 mg/24 Hours CD Cap PO SCH (09:05)
--- NOTE | 2017-09-06 12:03 | CP.PCM.PN ---
Subjective - Date & Time of Evaluation Date of Evaluation: 09/06/17 Time of Evaluation: 10:00 - Subjective Subjective: Pt seen and examined this morning. Seen lyign in bed comfortably. States he is still having abdominal pain (same as yesterday) and diarrhea. Denies n/v/cp, sob. Report mild cough. Objective - Vital Signs/Intake and Output Vital Signs (last 24 hours): Temp Pulse Resp BP Pulse Ox 98.2 F 66 20 155/67 H 94 L 09/06/17 08:31 09/06/17 08:31 09/06/17 08:31 09/06/17 08:31 09/06/17 08:31 - Medications Medications: Current Medications Acetaminophen (Tylenol 325mg Tab) 650 mg PO Q6 PRN PRN Reason: Pain, Mild (1-3) Last Admin: 09/04/17 18:06 Dose: 650 mg Amlodipine Besylate (Norvasc) 10 mg PO DAILY [facility] Last Admin: 09/06/17 09:04 Dose: 10 mg Bacitracin (Bacitracin Oint) 1 applic TOP DAILY [facility] Last Admin: 09/06/17 08:50 Dose: Not Given Bacitracin (Bacitracin) 1 ea TOP TID [facility] Last Admin: 09/06/17 08:50 Dose: Not Given Bumetanide (Bumex) 1 mg PO BID [facility] Last Admin: 09/06/17 09:06 Dose: 1 mg Calcitriol (Rocaltrol) 0.25 mcg PO FRI [facility] Last Admin: 09/05/17 08:43 Dose: Not Given Calcium Acetate (Phoslo) 667 mg PO WM [facility] Last Admin: 09/06/17 09:04 Dose: 667 mg Diltiazem HCl (Cardizem Cd) 360 mg PO DAILY [facility] Last Admin: 09/06/17 09:05 Dose: 360 mg Doxazosin Mesylate (Cardura) 1 mg PO HS [facility] Last Admin: 09/05/17 03:51 Dose: Not Given Ergocalciferol (Drisdol 50,000 Intl Units Cap) 1 cap PO Q7D [facility] Last Admin: 09/02/17 08:52 Dose: 1 cap Heparin Sodium (Porcine) (Heparin) 5,000 units SC Q12 [facility] PRN Reason: Protocol Last Admin: 09/06/17 08:48 Dose: Not Given Hydralazine HCl (Apresoline) 100 mg PO Q8H [facility] Last Admin: 09/06/17 05:34 Dose: Not Given Lactic Acid (Lac-Hydrin 12% Lotion (225 G)) 1 applic TOP TID [facility] Last Admin: 09/06/17 08:47 Dose: 1 applic Levetiracetam (Keppra) 500 mg PO Q12H [facility] Last Admin: 09/06/17 09:03 Dose: 500 mg Levothyroxine Sodium (Synthroid) 50 mcg PO DAILY@0630 [facility] Last Admin: 09/06/17 06:57 Dose: Not Given Lidocaine (Lidoderm) 2 ea TD DAILY [facility] Last Admin: 09/06/17 08:50 Dose: Not Given Lisinopril (Zestril) 40 mg PO DAILY [facility] Last Admin: 09/06/17 09:03 Dose: 40 mg Losartan Potassium (Cozaar) 50 mg PO DAILY [facility] Last Admin: 08/23/17 09:36 Dose: 50 mg Mirtazapine (Remeron) 30 mg PO HS [facility] Last Admin: 09/05/17 21:49 Dose: Not Given Thiamine HCl (Vitamin B1 Tab) 100 mg PO DAILY [facility] Last Admin: 09/06/17 09:03 Dose: 100 mg Vancomycin HCl (Vancocin (Oral/Rectal Use)) 125 mg PO QID [facility] PRN Reason: Protocol Last Admin: 09/06/17 09:04 Dose: 125 mg - Labs Labs: 09/06/17 05:20 09/06/17 05:20 PT 15.3 Seconds (9.8-13.1) H 07/18/17 05:30 INR 1.4 (0.9-1.2) H 07/18/17 05:30 APTT 34.2 Seconds (25.6-37.1) 07/18/17 05:30 - Constitutional Appears: Well, Non-toxic, Cachectic, Chronically Ill - ENT Exam ENT Exam: Mucous Membranes Moist - Respiratory Exam Respiratory Exam: Clear to Ausculation Bilateral, Rales (Mild rales appreciated in left lower base), NORMAL BREATHING PATTERN. absent: Chest Wall Tenderness, Wheezes, Respiratory Distress - Cardiovascular Exam Cardiovascular Exam: REGULAR RHYTHM, +S1, +S2 - GI/Abdominal Exam GI & Abdominal Exam: Soft. absent: Distended, Tenderness - Extremities Exam Extremities Exam: absent: Pedal Edema - Neurological Exam Neurological Exam: Alert, Awake, Oriented x3 Assessment and Plan - Assessment and Plan (Free Text) Assessment: 67M, homeless, with profound health issues that are currently stabilized with a multitude of medications to include oxygen. He is not medically or financially stable for discharge to home at this time. Pt currently starting treatment for Cdiff. Plan: #HTN, -BP 140's overnight -Echo Vasc Tech, Dr. Luz on board. -C/w with antihypertensive regimen #Diarrhea -C diff + -C/w vanco po -no fever, white count -continue to monitor #Anemia -Hg, 10.7 -Echo Vasc Tech planning for weekly EPO #CKD -Crea 1.9 -Secondary to nephrotic syndrome -Nephrology Consult (Dr Luz) greatly appreciated- c/w all recommendations -Avoid nephrotoxic meds #Chronic Pleural Effusion, stable -repeat Cxray showed stability in size -Pt not complaining of respiratory symptoms and o2 sats wnl -Will continue to monitor #Hyperkalemia, resolved -4.0 today -Continue to monitor, am BNP -Nephrology, Dr. Luz #Hyperphosphatemia -6.5 -c/w phosplo #Muscle pain, resolved -Pt intermittently complaining of muscle pain, in different locations -Tylenol 650mg PO Q6 -Will speak to Pt regarding what parameters limit physical therapy session. Pt states he is willing to cooperate. #DM -Endocrinology Consult (Dr Mann) appreciated- pt may have glucose impairment, but intermittent hypoglycemic episodes prompted cessation of Prandin and no further hypoglycemia -Hga1c= 5.7 on 08/19. POCG wnl. Insulin, ISS, hypoglycemic protocol, and Accuchecks d/c'd for now. Will reassess in 2 weeks DVT Prophylaxis: -SC Heparin. Pt refusing heparin. Ambulating
--- NOTE | 2017-09-06 13:32 | PN ---
DATE: ENDO FOLLOWUP NOTE LOCATION: Room 661. SUBJECTIVE: This is a 66-year-old male with recent acute respiratory failure with underlying pleural effusion and is now being followed closely for metabolic management. His oral intake remains quite suboptimal and variable at this time and the latest glucose levels have ranged from 105 mg/dL to 107 mg/dL. The latest chemistry showed BUN of 67, sodium of 142, potassium of 4.1, chloride of 111, CO2 of 21, glucose of 105, and creatinine of 1.9. His latest thyroid study showed T4 of 5.8 with the TSH of 4.19. So at this time, we will continue the low-dose levothyroxine given at 50 mcg once daily in the morning as ordered. We will obtain serial chemistries and supplement accordingly as needed. We will follow and advise accordingly. Bettina Mann MD
[2017-09-07] MEDS: Levothyroxine 50 MCG TAB PO SCH (06:42)
[2017-09-07] MEDS: Bacitracin 500 Units/gm Oint Foilpak UD TOP SCH ×3 (08:48→16:10)
[2017-09-07] MEDS: Bacitracin OINT 15GM TOP SCH (08:49)
[2017-09-07] MEDS: diltiaZEM 180 mg/24 Hours CD Cap PO SCH ×2 (08:50→09:13)
[2017-09-07] MEDS: Lidocaine 5% Patch TD SCH (08:51)
[2017-09-07] MEDS: Vancomycin 500 mg (Oral/Rectal USE) PO SCH ×5 (08:53→21:49)
[2017-09-07] MEDS: levETIRAcetam 100 mg/ml (5ml) Oral Syringe PO SCH ×2 (09:13→09:20)
--- NOTE | 2017-09-07 10:51 | PN ---
DATE: ENDO FOLLOWUP NOTE LOCATION: Room 661. SUBJECTIVE: This is a 66-year-old male with recent uncontrolled type 2 diabetes, now with improved glycemic profile and has been taken off all oral hypoglycemic therapy as noted. His glucose levels today have ranged from 105 mg/dL to 107 mg/dL. The latest chemistry showed BUN of 67, sodium of 142, potassium of 4.1, chloride of 111, CO2 of 21, glucose of 105, and creatinine of 1.9. His latest thyroid levels showed T4 of 5.81 with TSH of 4.19. So at this time, we will continue the low-dose levothyroxine given as 50 mcg once daily as ordered. We will titrate incrementally as indicated to optimize metabolic control. We will follow. Bettina Mann MD
--- NOTE | 2017-09-07 14:23 | CP.PCM.PN ---
Subjective - Date & Time of Evaluation Date of Evaluation: 09/07/17 Time of Evaluation: 10:00 - Subjective Subjective: Pt seen and examined at bedside, reports still having lots of diarrhea, and he would like to be cleaned. otherwise no another complaints, tolerating diet well. Nurses notes reviewed Objective - Vital Signs/Intake and Output Vital Signs (last 24 hours): Temp Pulse Resp BP Pulse Ox 97.1 F L 65 20 164/64 H 91 L 09/07/17 07:52 09/07/17 13:21 09/07/17 07:52 09/07/17 13:21 09/07/17 07:52 - Medications Medications: Current Medications Acetaminophen (Tylenol 325mg Tab) 650 mg PO Q6 PRN PRN Reason: Pain, Mild (1-3) Last Admin: 09/04/17 18:06 Dose: 650 mg Amlodipine Besylate (Norvasc) 10 mg PO DAILY [facility] Last Admin: 09/07/17 09:02 Dose: 10 mg Bacitracin (Bacitracin Oint) 1 applic TOP DAILY [facility] Last Admin: 09/07/17 08:49 Dose: 1 applic Bacitracin (Bacitracin) 1 ea TOP TID [facility] Last Admin: 09/07/17 12:39 Dose: 1 ea Bumetanide (Bumex) 1 mg PO BID [facility] Last Admin: 09/07/17 13:31 Dose: 1 mg Calcitriol (Rocaltrol) 0.25 mcg PO FRI [facility] Last Admin: 09/05/17 08:43 Dose: Not Given Calcium Acetate (Phoslo) 667 mg PO WM [facility] Last Admin: 09/07/17 12:38 Dose: 667 mg Diltiazem HCl (Cardizem Cd) 360 mg PO DAILY [facility] Last Admin: 09/07/17 09:13 Dose: Not Given Doxazosin Mesylate (Cardura) 1 mg PO HS [facility] Last Admin: 09/05/17 03:51 Dose: Not Given Ergocalciferol (Drisdol 50,000 Intl Units Cap) 1 cap PO Q7D [facility] Last Admin: 09/02/17 08:52 Dose: 1 cap Hydralazine HCl (Apresoline) 100 mg PO Q8H [facility] Last Admin: 09/07/17 13:21 Dose: 100 mg Lactic Acid (Lac-Hydrin 12% Lotion (225 G)) 1 applic TOP TID [facility] Last Admin: 09/07/17 12:38 Dose: 1 applic Levothyroxine Sodium (Synthroid) 50 mcg PO DAILY@0630 [facility] Last Admin: 09/07/17 06:42 Dose: 50 mcg Lidocaine (Lidoderm) 2 ea TD DAILY [facility] Last Admin: 09/07/17 08:51 Dose: 2 ea Lisinopril (Zestril) 40 mg PO DAILY [facility] Last Admin: 09/07/17 08:50 Dose: 40 mg Losartan Potassium (Cozaar) 50 mg PO DAILY [facility] Last Admin: 08/23/17 09:36 Dose: 50 mg Mirtazapine (Remeron) 30 mg PO HS [facility] Last Admin: 09/06/17 21:16 Dose: 30 mg Thiamine HCl (Vitamin B1 Tab) 100 mg PO DAILY [facility] Last Admin: 09/07/17 09:14 Dose: Not Given Vancomycin HCl (Vancocin (Oral/Rectal Use)) 125 mg PO QID [facility] PRN Reason: Protocol Last Admin: 09/07/17 12:39 Dose: 125 mg - Labs Labs: 09/06/17 05:20 09/06/17 05:20 PT 15.3 Seconds (9.8-13.1) H 07/18/17 05:30 INR 1.4 (0.9-1.2) H 07/18/17 05:30 APTT 34.2 Seconds (25.6-37.1) 07/18/17 05:30 - Constitutional Appears: No Acute Distress - ENT Exam ENT Exam: Mucous Membranes Moist - Respiratory Exam Respiratory Exam: NORMAL BREATHING PATTERN - Cardiovascular Exam Cardiovascular Exam: +S1, +S2. absent: Tachycardia - GI/Abdominal Exam GI & Abdominal Exam: Soft, Normal Bowel Sounds. absent: Tenderness - Extremities Exam Extremities Exam: absent: Calf Tenderness, Pedal Edema - Neurological Exam Neurological Exam: Alert, Awake Assessment and Plan - Assessment and Plan (Free Text) Assessment: 67M, homeless, with profound health issues that are currently stabilized with a multitude of medications to include oxygen. He is not medically or financially stable for discharge to home at this time. currently on treatment for Cdiff, antibiotic day#3 Plan: C.diff -C/w Vanco PO day 3 -no fever, white count -continue to monitor #HTN, -BP 140's overnight -Fishing Captain, Dr. Luz on board. -C/w with antihypertensive regimen #Anemia -Hg, 10.7 -Fishing Captain planning for weekly EPO #CKD -Crea 1.9 -Secondary to nephrotic syndrome -Nephrology Consult (Dr Luz) greatly appreciated- c/w all recommendations -Avoid nephrotoxic meds #Chronic Pleural Effusion, stable -repeat Cxray showed stability in size -Pt not complaining of respiratory symptoms and o2 sats wnl -Will continue to monitor #Hyperkalemia, resolved -4.0 today -Continue to monitor, am BNP -Nephrology, Dr. Luz #Hyperphosphatemia -6.5 -c/w phosplo #Muscle pain, resolved -Pt intermittently complaining of muscle pain, in different locations -Tylenol 650mg PO Q6 -Will speak to Pt regarding what parameters limit physical therapy session. Pt states he is willing to cooperate. #DM -Endocrinology Consult (Dr Mann) appreciated- pt may have glucose impairment, but intermittent hypoglycemic episodes prompted cessation of Prandin and no further hypoglycemia -Hga1c= 5.7 on 08/19. POCG wnl. Insulin, ISS, hypoglycemic protocol, and Accuchecks d/c'd for now. Will reassess in 2 weeks DVT Prophylaxis: -SC Heparin. Pt refusing heparin. Ambulating
[2017-09-07] MEDS ORDERED: Albuterol-Ipratrop 3 mg / 0.5 (3 ml) UD INH PRN (15:45)
[2017-09-08] MEDS: Levothyroxine 50 MCG TAB PO SCH (06:30)
[2017-09-08] MEDS: Bacitracin OINT 15GM TOP SCH (08:51)
[2017-09-08] MEDS: Bacitracin 500 Units/gm Oint Foilpak UD TOP SCH ×3 (08:52→16:43)
[2017-09-08] MEDS: diltiaZEM 180 mg/24 Hours CD Cap PO SCH (08:54)
[2017-09-08] MEDS: Lidocaine 5% Patch TD SCH (09:01)
[2017-09-08] MEDS: Vancomycin 500 mg (Oral/Rectal USE) PO SCH ×4 (09:09→22:17)
--- NOTE | 2017-09-08 10:54 | CP.PCM.PN ---
Subjective - Date & Time of Evaluation Date of Evaluation: 09/08/17 Time of Evaluation: 08:00 - Subjective Subjective: No acute overnight events. Pt seen and examined at the bedside this am. Pt states he has been havig diarrhea with some improvement since yesterday. Tolerating diet. Ambulated from bed to chair. Agreeable to some medications- declining +2 meds at a time. Objective - Vital Signs/Intake and Output Vital Signs (last 24 hours): Temp Pulse Resp BP Pulse Ox 98.3 F 85 20 149/69 95 09/08/17 07:56 09/08/17 09:10 09/08/17 07:56 09/08/17 09:10 09/08/17 07:56 - Medications Medications: Current Medications Acetaminophen (Tylenol 325mg Tab) 650 mg PO Q6 PRN PRN Reason: Pain, Mild (1-3) Last Admin: 09/04/17 18:06 Dose: 650 mg Albuterol/Ipratropium (Duoneb 3 Mg/0.5 Mg (3 Ml) Ud) 3 ml INH RQ6 PRN PRN Reason: Shortness of Breath Last Admin: 09/07/17 17:22 Dose: 3 ml Amlodipine Besylate (Norvasc) 10 mg PO DAILY [facility] Last Admin: 09/08/17 09:02 Dose: 10 mg Bacitracin (Bacitracin Oint) 1 applic TOP DAILY [facility] Last Admin: 09/08/17 08:51 Dose: 1 applic Bacitracin (Bacitracin) 1 ea TOP TID [facility] Last Admin: 09/08/17 08:52 Dose: 1 ea Bumetanide (Bumex) 1 mg PO BID [facility] Last Admin: 09/08/17 08:53 Dose: 1 mg Calcitriol (Rocaltrol) 0.25 mcg PO FRI [facility] Last Admin: 09/05/17 08:43 Dose: Not Given Calcium Acetate (Phoslo) 667 mg PO WM [facility] Last Admin: 09/08/17 09:12 Dose: 667 mg Diltiazem HCl (Cardizem Cd) 360 mg PO DAILY [facility] Last Admin: 09/08/17 08:54 Dose: 360 mg Doxazosin Mesylate (Cardura) 1 mg PO HS [facility] Last Admin: 09/05/17 03:51 Dose: Not Given Ergocalciferol (Drisdol 50,000 Intl Units Cap) 1 cap PO Q7D [facility] Last Admin: 09/02/17 08:52 Dose: 1 cap Heparin Sodium (Porcine) (Heparin) 5,000 units SC Q8 [facility] PRN Reason: Protocol Hydralazine HCl (Apresoline) 100 mg PO Q8H [facility] Last Admin: 09/08/17 06:29 Dose: 100 mg Lactic Acid (Lac-Hydrin 12% Lotion (225 G)) 1 applic TOP TID [facility] Last Admin: 09/08/17 08:59 Dose: 1 applic Levetiracetam (Keppra) 500 mg PO BID [facility] Levothyroxine Sodium (Synthroid) 50 mcg PO DAILY@0630 [facility] Last Admin: 09/08/17 06:30 Dose: 50 mcg Lisinopril (Zestril) 40 mg PO DAILY [facility] Last Admin: 09/08/17 09:10 Dose: 40 mg Losartan Potassium (Cozaar) 50 mg PO DAILY [facility] Last Admin: 08/23/17 09:36 Dose: 50 mg Mirtazapine (Remeron) 30 mg PO HS [facility] Last Admin: 09/07/17 21:48 Dose: 30 mg Vancomycin HCl (Vancocin (Oral/Rectal Use)) 125 mg PO QID [facility] PRN Reason: Protocol Last Admin: 09/08/17 09:09 Dose: 125 mg - Labs Labs: 09/06/17 05:20 09/06/17 05:20 PT 15.3 Seconds (9.8-13.1) H 07/18/17 05:30 INR 1.4 (0.9-1.2) H 07/18/17 05:30 APTT 34.2 Seconds (25.6-37.1) 07/18/17 05:30 - Constitutional Appears: Well, No Acute Distress, Cachectic - ENT Exam ENT Exam: Mucous Membranes Moist - Respiratory Exam Respiratory Exam: Clear to Ausculation Bilateral, Rales (mild left basilar rales ). absent: Rhonchi, Wheezes, Respiratory Distress - Cardiovascular Exam Cardiovascular Exam: REGULAR RHYTHM, +S1, +S2 - GI/Abdominal Exam GI & Abdominal Exam: Soft, Normal Bowel Sounds. absent: Distended, Tenderness - Extremities Exam Extremities Exam: absent: Pedal Edema - Neurological Exam Neurological Exam: Alert, Awake, Normal Gait Assessment and Plan - Assessment and Plan (Free Text) Assessment: 67M, homeless, with profound health issues that are currently stabilized with a multitude of medications to include oxygen. He is not medically or financially stable for discharge to home at this time. Currently on treatment for Cdiff, antibiotic day#4 Plan: #C.diff -C/w Vanco PO day 4 -no fever, white count -continue to monitor -Diarrhea improvement #HTN, -Normotensive overnight -Religious Leader, Dr. Luz on board. -C/w with antihypertensive regimen #Anemia -Hg, 10.7 -Religious Leader planning for weekly EPO -F/U cbc #CKD -Crea 1.9 -Secondary to nephrotic syndrome -Nephrology Consult (Dr Luz) greatly appreciated- c/w all recommendations -Avoid nephrotoxic meds -F/U BMP #Chronic Pleural Effusion, stable -repeat Cxray showed stability in size -Pt not complaining of respiratory symptoms and o2 sats wnl -Will continue to monitor #Hyperkalemia, resolved -4.0 -Continue to monitor, am BNP -Nephrology, Dr. Luz #Hyperphosphatemia -6.5 -c/w phosplo -f/u am phosphorous #Muscle pain, resolved -Pt intermittently complaining of muscle pain, in different locations -Tylenol 650mg PO Q6 -Will speak to Pt regarding what parameters limit physical therapy session. Pt states he is willing to cooperate. #DM -Endocrinology Consult (Dr Mann) appreciated- pt may have glucose impairment, but intermittent hypoglycemic episodes prompted cessation of Prandin and no further hypoglycemia -Hga1c= 5.7 on 08/19. POCG wnl. Insulin, ISS, hypoglycemic protocol, and Accuchecks d/c'd for now. Will reassess in 2 weeks DVT Prophylaxis: -SC Heparin. Pt refusing heparin. Ambulating
[2017-09-08] MEDS: levETIRAcetam 100 mg/ml (5ml) Oral Syringe PO SCH (16:45)
--- NOTE | 2017-09-09 00:42 | PN ---
ENDOCRINOLOGY FOLLOWUP NOTE DATE: LOCATION: In room 661 SUBJECTIVE: This is a 67-year-old male with known history of type 2 diabetes and hypothyroidism with recent acute respiratory failure and underlying pleural effusion and is now being followed closely for metabolic management. He remains clinically and biochemically euthyroid at this time and the latest thyroid studies shows a T4 of 5.8 with a TSH of 4.19. His latest chemistry showed a BUN of 67, sodium 142, potassium 4.1, chloride 111, CO2 of 21, glucose 105, and creatinine 1.9. So, at this time, we will continue the levothyroxine given as 50 mcg once daily in the morning as ordered. We will also continue the low-dose correction scale using regular insulin as given. We will titrate incremental as indicated to optimize metabolic control. We will follow. Bettina Mann MD
[2017-09-09 06:29] LABS: HEMOGLOBIN 11.2 g/dL (12.0-18.0); MEAN CELL VOLUME 88.4 fl (80.0-94.0); MEAN CORPUSCULAR HEMOGLOBIN 28.2 pg (27.0-31.0); MEAN CORPUSCULAR HGB CONC 31.9 g/dL (33.0-37.0); RBC 3.96 Mil/uL (4.40-5.90); RED CELL DISTRIBUTION WIDTH 18.2 % (11.5-14.5); WHITE BLOOD COUNT 6.7 K/uL (4.8-10.8)
[2017-09-09] MEDS: Levothyroxine 50 MCG TAB PO SCH (06:45)
[2017-09-09 06:47] LABS: CALCIUM 8.7 mg/dL (8.4-10.2)
[2017-09-09] MEDS: Bacitracin 500 Units/gm Oint Foilpak UD TOP SCH ×3 (08:49→16:46)
[2017-09-09] MEDS: Bacitracin OINT 15GM TOP SCH (08:50)
[2017-09-09] MEDS: diltiaZEM 180 mg/24 Hours CD Cap PO SCH (08:51)
[2017-09-09] MEDS: levETIRAcetam 100 mg/ml (5ml) Oral Syringe PO SCH ×2 (08:52→16:48)
[2017-09-09] MEDS: Vancomycin 500 mg (Oral/Rectal USE) PO SCH ×4 (08:53→21:39)
--- NOTE | 2017-09-09 09:30 | CP.PCM.PN ---
Subjective - Date & Time of Evaluation Date of Evaluation: 09/09/17 Time of Evaluation: 09:00 - Subjective Subjective: Overnight, pt was noted to have a drop in his O2 sat to 91-92 as per RN. Pt seen and examined this morning at the bedside. Denies any sob, seen breathing comfortably. Pt complains of generalized muscle pain, especially in his arms. Reports that his diarrhea has improved. Tolerating diet. Urination normal. Pt has been refusing physical therapy sessions. After speaking with him this morning, pt is agreeable to participate with physical therapy. Mild phlegm cough, non productive, same as yesterday, not worsening. No fever, chills Objective - Vital Signs/Intake and Output Vital Signs (last 24 hours): Temp Pulse Resp BP Pulse Ox 97.6 F 58 L 18 163/79 H 96 09/09/17 07:45 09/09/17 07:45 09/09/17 07:45 09/09/17 08:54 09/09/17 07:45 - Medications Medications: Current Medications Acetaminophen (Tylenol 325mg Tab) 650 mg PO Q6 [facility] Albuterol/Ipratropium (Duoneb 3 Mg/0.5 Mg (3 Ml) Ud) 3 ml INH RQ6 PRN PRN Reason: Shortness of Breath Last Admin: 09/07/17 17:22 Dose: 3 ml Amlodipine Besylate (Norvasc) 10 mg PO DAILY [facility] Last Admin: 09/09/17 08:53 Dose: 10 mg Bacitracin (Bacitracin Oint) 1 applic TOP DAILY [facility] Last Admin: 09/09/17 08:50 Dose: 1 applic Bacitracin (Bacitracin) 1 ea TOP TID [facility] Last Admin: 09/09/17 08:49 Dose: 1 ea Bumetanide (Bumex) 1 mg PO BID [facility] Last Admin: 09/09/17 08:50 Dose: 1 mg Calcitriol (Rocaltrol) 0.25 mcg PO FRI [facility] Last Admin: 09/05/17 08:43 Dose: Not Given Calcium Acetate (Phoslo) 667 mg PO WM [facility] Last Admin: 09/09/17 08:53 Dose: 667 mg Diltiazem HCl (Cardizem Cd) 360 mg PO DAILY [facility] Last Admin: 09/09/17 08:51 Dose: 360 mg Doxazosin Mesylate (Cardura) 1 mg PO HS [facility] Last Admin: 09/05/17 03:51 Dose: Not Given Ergocalciferol (Drisdol 50,000 Intl Units Cap) 1 cap PO Q7D [facility] Last Admin: 09/02/17 08:52 Dose: 1 cap Heparin Sodium (Porcine) (Heparin) 5,000 units SC Q8 [facility] PRN Reason: Protocol Last Admin: 09/09/17 08:59 Dose: Not Given Hydralazine HCl (Apresoline) 100 mg PO Q8H [facility] Last Admin: 09/09/17 06:45 Dose: Not Given Lactic Acid (Lac-Hydrin 12% Lotion (225 G)) 1 applic TOP TID [facility] Last Admin: 09/09/17 08:53 Dose: 1 applic Levetiracetam (Keppra) 500 mg PO BID [facility] Last Admin: 09/09/17 08:52 Dose: 500 mg Levothyroxine Sodium (Synthroid) 50 mcg PO DAILY@0630 [facility] Last Admin: 09/09/17 06:45 Dose: Not Given Lisinopril (Zestril) 40 mg PO DAILY [facility] Last Admin: 09/09/17 08:54 Dose: 40 mg Losartan Potassium (Cozaar) 50 mg PO DAILY [facility] Last Admin: 08/23/17 09:36 Dose: 50 mg Mirtazapine (Remeron) 30 mg PO [facility] Last Admin: 09/08/17 22:21 Dose: 30 mg Vancomycin HCl (Vancocin (Oral/Rectal Use)) 125 mg PO QID [facility] PRN Reason: Protocol Last Admin: 09/09/17 08:53 Dose: 125 mg - Labs Labs: 09/09/17 05:35 09/09/17 05:35 PT 15.3 Seconds (9.8-13.1) H 07/18/17 05:30 INR 1.4 (0.9-1.2) H 07/18/17 05:30 APTT 34.2 Seconds (25.6-37.1) 07/18/17 05:30 - Constitutional Appears: Well, Non-toxic, No Acute Distress, Cachectic, Chronically Ill - ENT Exam ENT Exam: Mucous Membranes Moist - Respiratory Exam Respiratory Exam: Clear to Ausculation Bilateral, Rales (LEft lower lung base ( stable)). absent: Accessory Muscle Use, Rhonchi, Wheezes, Respiratory Distress - Cardiovascular Exam Cardiovascular Exam: REGULAR RHYTHM, +S1, +S2. absent: Murmur - GI/Abdominal Exam GI & Abdominal Exam: Soft. absent: Distended, Tenderness - Neurological Exam Neurological Exam: Alert, Awake, Oriented x3 - Psychiatric Exam Psychiatric exam: Normal Affect Assessment and Plan - Assessment and Plan (Free Text) Assessment: 67M, homeless, with profound health issues that are currently stabilized with a multitude of medications to include oxygen. He is not medically or financially stable for discharge to home at this time. Currently on treatment for Cdiff, antibiotic day#5 Plan: #C.diff -Clinically improving, 1 soft BM yesterday. Pt reports abdominal pain improved -C/w Vanco PO day 5 -no fever, white count -continue to monitor -Diarrhea improvement #HTN, -Normotensive overnight. BP elevated this morning in 160s, pt had refused -Recovery Operator Helper, Dr. Luz on board. -C/w with antihypertensive regimen #Anemia -Hg, 11.7 today (stable) -Recovery Operator Helper planning for weekly EPO -F/U cbc #CKD -Crea 2.0 today -Secondary to nephrotic syndrome -Nephrology Consult (Dr Luz) greatly appreciated- c/w all recommendations -Avoid nephrotoxic meds -F/U BMP #Chronic Pleural Effusion, stable -repeat Cxray showed stability in size (09/05) -Pt not complaining of respiratory symptoms and o2 sats wnl (1 episode of 02 sat in 91-92 overnight, wnl all day) -Will continue to monitor #Hyperkalemia, resolved -4.0 -Continue to monitor, am BNP -Nephrology, Dr. Luz #Hyperphosphatemia -6.5 -c/w phosplo -f/u am phosphorous #Muscle pain -Pt intermittently complaining of muscle pain, in different locations -Tylenol 650mg PO Q6 scheduled -Physical therapy eval and treat placed today. Pt agreeable to participate #DM -Endocrinology Consult (Dr Mann) appreciated- pt may have glucose impairment, but intermittent hypoglycemic episodes prompted cessation of Prandin and no further hypoglycemia -Hga1c= 5.7 on 08/19. POCG wnl. Insulin, ISS, hypoglycemic protocol, and Accuchecks d/c'd for now. Will reassess in 2 weeks DVT Prophylaxis: -SC Heparin. Pt refusing heparin. Ambulating
[2017-09-09] MEDS: Ergocalciferol 50,000 Intl Units Cap PO SCH (10:54)
--- NOTE | 2017-09-09 22:20 | CP.PCM.PN ---
Subjective - Date & Time of Evaluation Date of Evaluation: 09/09/17 Time of Evaluation: 12:30 - Subjective Subjective: Had some BM earlier today but more formed; denies sob despite having O2 desat into low 90's, wasn't symptomatic at the time per nursing; Objective - Vital Signs/Intake and Output Vital Signs (last 24 hours): Temp Pulse Resp BP Pulse Ox 97.4 F L 82 20 140/64 97 09/09/17 15:36 09/09/17 21:38 09/09/17 15:36 09/09/17 22:00 09/09/17 15:36 - Medications Medications: Current Medications Acetaminophen (Tylenol 325mg Tab) 650 mg PO Q6 [facility] Last Admin: 09/09/17 16:59 Dose: 650 mg Albuterol/Ipratropium (Duoneb 3 Mg/0.5 Mg (3 Ml) Ud) 3 ml INH RQ6 PRN PRN Reason: Shortness of Breath Last Admin: 09/07/17 17:22 Dose: 3 ml Amlodipine Besylate (Norvasc) 10 mg PO DAILY [facility] Last Admin: 09/09/17 08:53 Dose: 10 mg Bacitracin (Bacitracin Oint) 1 applic TOP DAILY [facility] Last Admin: 09/09/17 08:50 Dose: 1 applic Bacitracin (Bacitracin) 1 ea TOP TID [facility] Last Admin: 09/09/17 16:46 Dose: 1 ea Bumetanide (Bumex) 1 mg PO BID [facility] Last Admin: 09/09/17 16:47 Dose: 1 mg Calcitriol (Rocaltrol) 0.25 mcg PO FRI [facility] Last Admin: 09/05/17 08:43 Dose: Not Given Calcium Acetate (Phoslo) 667 mg PO WM [facility] Last Admin: 09/09/17 18:22 Dose: 667 mg Diltiazem HCl (Cardizem Cd) 360 mg PO DAILY [facility] Last Admin: 09/09/17 08:51 Dose: 360 mg Doxazosin Mesylate (Cardura) 1 mg PO HS [facility] Last Admin: 09/05/17 03:51 Dose: Not Given Ergocalciferol (Drisdol 50,000 Intl Units Cap) 1 cap PO Q7D [facility] Last Admin: 09/09/17 10:54 Dose: 1 cap Heparin Sodium (Porcine) (Heparin) 5,000 units SC Q8 [facility] PRN Reason: Protocol Last Admin: 09/09/17 16:47 Dose: Not Given Hydralazine HCl (Apresoline) 100 mg PO Q8H [facility] Last Admin: 09/09/17 21:38 Dose: 100 mg Lactic Acid (Lac-Hydrin 12% Lotion (225 G)) 1 applic TOP TID [facility] Last Admin: 09/09/17 16:48 Dose: 1 applic Levetiracetam (Keppra) 500 mg PO BID [facility] Last Admin: 09/09/17 16:48 Dose: 500 mg Levothyroxine Sodium (Synthroid) 50 mcg PO DAILY@0630 [facility] Last Admin: 09/09/17 06:45 Dose: Not Given Lisinopril (Zestril) 40 mg PO DAILY [facility] Last Admin: 09/09/17 08:54 Dose: 40 mg Losartan Potassium (Cozaar) 50 mg PO DAILY [facility] Last Admin: 08/23/17 09:36 Dose: 50 mg Mirtazapine (Remeron) 30 mg PO HS [facility] Last Admin: 09/09/17 21:38 Dose: 30 mg Vancomycin HCl (Vancocin (Oral/Rectal Use)) 125 mg PO QID [facility] PRN Reason: Protocol Last Admin: 09/09/17 21:39 Dose: 125 mg - Labs Labs: 09/09/17 05:35 09/09/17 05:35 PT 15.3 Seconds (9.8-13.1) H 07/18/17 05:30 INR 1.4 (0.9-1.2) H 07/18/17 05:30 APTT 34.2 Seconds (25.6-37.1) 07/18/17 05:30 - Constitutional Appears: Non-toxic, No Acute Distress - Eye Exam Eye Exam: absent: Scleral icterus - ENT Exam ENT Exam: Mucous Membranes Moist - Respiratory Exam Respiratory Exam: absent: Clear to Ausculation Bilateral, Respiratory Distress - Cardiovascular Exam Cardiovascular Exam: RRR, +S1, +S2 - GI/Abdominal Exam GI & Abdominal Exam: Soft. absent: Distended, Tenderness - Exam Exam: absent: Bladder Distension - Extremities Exam Additional comments: minimal leg edema; - Neurological Exam Neurological Exam: Alert, Awake - Psychiatric Exam Psychiatric exam: Normal Mood. absent: Agitated - Skin Skin Exam: Warm. absent: Cyanosis Assessment and Plan (1) Hyperkalemia Assessment & Plan: Resolved for now in the setting of increased stool losses; monitor; will likely recur after once diarrhea resolved; Status: Acute (2) Malnutrition Assessment & Plan: Started on nepro, 3 times per day, for protein supplementation but with subsequent azotemia (BUN significantly out of proportion to creat); will decrease to just once a day; Status: Acute (3) Hypertensive CKD (chronic kidney disease) Assessment & Plan: BP better controlled lately but in the setting of possible volume depletion from diarrhea; sujit and renin levels not elevated prior to diarrhea which indicates that patient was not volume depleted at that time and may allow for higher diuretic dosing, will consider once diarrhea completely resolves; continue current meds for now; Status: Acute (4) Chronic kidney disease, stage 3 (moderate) Assessment & Plan: Relatively stable renal function, monitor; avoid nephrotoxic agents (NSAIDS, phoshpate enema, careful antiobiotic selection, etc); Status: Chronic (5) Acute renal failure Status: Resolved (6) Nephrotic syndrome Status: Chronic (7) Pleural effusion Status: Chronic (8) Hypothermia Status: Acute (9) Altered mental status Status: Acute (10) SIRS (systemic inflammatory response syndrome) Status: Acute (11) Anemia Assessment & Plan: Off EPO since almost past 1 month; hgb stable; will monitor; Status: Chronic (12) Monoclonal gammopathy Status: Chronic (13) Hypernatremia Status: Acute (14) Chronic kidney disease-mineral and bone disorder Assessment & Plan: Phos mildly elevated, continue phoslo 1 tab w/ meals; continue calcitriol 0.25 mcg weekly for elevated PTH; Status: Chronic
[2017-09-10] MEDS: Levothyroxine 50 MCG TAB PO SCH (05:45)
[2017-09-10 06:55] LABS: BASO % 0.8 % (0.0-2.0); EOS # 0.3 K/uL (0.0-0.7); EOS % 5.1 % (0.0-4.0); LYMPH # 1.7 K/uL (1.0-4.3); MEAN CELL VOLUME 87.4 fl (80.0-94.0); MEAN CORPUSCULAR HGB CONC 32.1 g/dL (33.0-37.0); MEAN PLATELET VOLUME 10.2 fl (7.2-11.7); MONO # 0.5 K/uL (0.0-0.8); MONO % 8.6 % (0.0-10.0); NEUT # 3.3 K/uL (1.8-7.0); NEUT % 56.5 % (50.0-75.0); NRBC % 0.1 % (0.0-0.0); RBC 3.92 Mil/uL (4.40-5.90); RED CELL DISTRIBUTION WIDTH 17.7 % (11.5-14.5); WHITE BLOOD COUNT 5.9 K/uL (4.8-10.8)
[2017-09-10 06:56] LABS: CALCIUM 8.4 mg/dL (8.4-10.2)
--- NOTE | 2017-09-10 08:30 | PN ---
DATE: ENDO FOLLOWUP NOTE LOCATION: Room 661. SUBJECTIVE: This is a 67-year-old male with recent acute respiratory failure, underlying pleural effusion and is now being followed closely for metabolic management. His glycemic levels are fluctuating, but much improved at this time and the latest glucose levels have ranged from 105 mg/dL to 121 mg/dL. The latest chemistry showed BUN of 88, sodium of , potassium of 4.3, chloride of 109, CO2 of 23, glucose of 121, and creatinine 2.0. He has been taken off all oral hypoglycemic therapy as noted. He remains clinically and biochemically euthyroid at this time and the latest thyroid study showed T4 of 5.81 with TSH of 4.19. So, we will continue the same low-dose oral levothyroxine therapy given as 50 mcg once daily in the morning as ordered. We will obtain serial chemistries and supplement accordingly as needed. Bettina Mann MD
[2017-09-10] MEDS: Vancomycin 500 mg (Oral/Rectal USE) PO SCH ×4 (09:17→21:25)
[2017-09-10] MEDS: levETIRAcetam 100 mg/ml (5ml) Oral Syringe PO SCH ×2 (09:19→17:14)
[2017-09-10] MEDS: diltiaZEM 180 mg/24 Hours CD Cap PO SCH (09:19)
[2017-09-10] MEDS: Bacitracin OINT 15GM TOP SCH (09:20)
[2017-09-10] MEDS: Bacitracin 500 Units/gm Oint Foilpak UD TOP SCH ×3 (09:20→17:23)
--- NOTE | 2017-09-10 10:16 | CP.PCM.PN ---
Subjective - Date & Time of Evaluation Date of Evaluation: 09/10/17 Time of Evaluation: 08:00 - Subjective Subjective: No acute overnight events. Pt evaluated at the bedside this morning. Reports he "feels much better." But later complains that he has been getting mild occasional right sided chest wall pain, exacerbated with deep inspiration and cough. Reports diarrhea has improved. Participated with physical therapy yesterday (in bed ROM exercises). Urination normal. No other complaints. Objective - Vital Signs/Intake and Output Vital Signs (last 24 hours): Temp Pulse Resp BP Pulse Ox 97.2 F L 61 20 110/70 95 09/10/17 07:44 09/10/17 09:19 09/10/17 07:44 09/10/17 09:19 09/10/17 07:44 - Medications Medications: Current Medications Acetaminophen (Tylenol 325mg Tab) 650 mg PO Q6 [facility] Last Admin: 09/10/17 05:52 Dose: 650 mg Albuterol/Ipratropium (Duoneb 3 Mg/0.5 Mg (3 Ml) Ud) 3 ml INH RQ6 PRN PRN Reason: Shortness of Breath Last Admin: 09/07/17 17:22 Dose: 3 ml Amlodipine Besylate (Norvasc) 10 mg PO DAILY [facility] Last Admin: 09/10/17 09:17 Dose: 10 mg Bacitracin (Bacitracin Oint) 1 applic TOP DAILY [facility] Last Admin: 09/10/17 09:20 Dose: 1 applic Bacitracin (Bacitracin) 1 ea TOP TID [facility] Last Admin: 09/10/17 09:20 Dose: 1 ea Bumetanide (Bumex) 1 mg PO BID [facility] Last Admin: 09/10/17 09:16 Dose: 1 mg Calcitriol (Rocaltrol) 0.25 mcg PO FRI [facility] Last Admin: 09/05/17 08:43 Dose: Not Given Calcium Acetate (Phoslo) 667 mg PO WM [facility] Last Admin: 09/10/17 09:16 Dose: 667 mg Diltiazem HCl (Cardizem Cd) 360 mg PO DAILY [facility] Last Admin: 09/10/17 09:19 Dose: 360 mg Doxazosin Mesylate (Cardura) 1 mg PO HS [facility] Last Admin: 09/05/17 03:51 Dose: Not Given Ergocalciferol (Drisdol 50,000 Intl Units Cap) 1 cap PO Q7D [facility] Last Admin: 09/09/17 10:54 Dose: 1 cap Heparin Sodium (Porcine) (Heparin) 5,000 units SC Q8 [facility] PRN Reason: Protocol Last Admin: 09/10/17 09:29 Dose: Not Given Hydralazine HCl (Apresoline) 100 mg PO Q8H [facility] Last Admin: 09/10/17 05:53 Dose: 100 mg Lactic Acid (Lac-Hydrin 12% Lotion (225 G)) 1 applic TOP TID [facility] Last Admin: 09/10/17 09:15 Dose: 1 applic Levetiracetam (Keppra) 500 mg PO BID [facility] Last Admin: 09/10/17 09:19 Dose: 500 mg Levothyroxine Sodium (Synthroid) 50 mcg PO DAILY@0630 [facility] Last Admin: 09/10/17 05:45 Dose: 50 mcg Lisinopril (Zestril) 40 mg PO DAILY [facility] Last Admin: 09/10/17 09:19 Dose: 40 mg Losartan Potassium (Cozaar) 50 mg PO DAILY [facility] Last Admin: 08/23/17 09:36 Dose: 50 mg Mirtazapine (Remeron) 30 mg PO HS [facility] Last Admin: 09/09/17 21:38 Dose: 30 mg Vancomycin HCl (Vancocin (Oral/Rectal Use)) 125 mg PO QID [facility] PRN Reason: Protocol Last Admin: 09/10/17 09:17 Dose: 125 mg - Labs Labs: 09/10/17 05:40 09/10/17 05:40 PT 15.3 Seconds (9.8-13.1) H 07/18/17 05:30 INR 1.4 (0.9-1.2) H 07/18/17 05:30 APTT 34.2 Seconds (25.6-37.1) 07/18/17 05:30 - Constitutional Appears: Well, Cachectic, Chronically Ill - Eye Exam Eye Exam: Normal appearance - ENT Exam ENT Exam: Mucous Membranes Moist - Respiratory Exam Respiratory Exam: Chest Wall Tenderness (Right anterior chest wall tenderness on deep palpation and touch, thorocotomy scar wnl, no signs of infection), Clear to Ausculation Bilateral, Rales (Mild rales in left lung base). absent: Wheezes - Cardiovascular Exam Cardiovascular Exam: REGULAR RHYTHM, +S1, +S2. absent: Murmur - GI/Abdominal Exam GI & Abdominal Exam: Soft, Normal Bowel Sounds. absent: Distended, Guarding, Tenderness - Extremities Exam Extremities Exam: absent: Pedal Edema - Neurological Exam Neurological Exam: Alert, Awake, Oriented x3 - Psychiatric Exam Psychiatric exam: Normal Affect - Skin Skin Exam: Normal Color Assessment and Plan - Assessment and Plan (Free Text) Assessment: 67M, homeless, with profound health issues that are currently stabilized with a multitude of medications to include oxygen. He is not medically or financially stable for discharge to home at this time. Currently on treatment for Cdiff, antibiotic day#6 Plan: #C.diff -Clinically improving, 1 soft BM yesterday. 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 150's this morning -[facility], Dr. Luz on board. -C/w with antihypertensive regimen #Anemia -Hg, 11.0 today (stable) -Emergency Medicine planning for weekly EPO -F/U cbc #CKD -Crea 2.0 today -Secondary to nephrotic syndrome -Nephrology Consult (Dr Luz) greatly appreciated- c/w all recommendations -Avoid nephrotoxic meds -F/U BMP #Chronic Pleural Effusion, stable -repeat Cxray showed stability in size (09/05) -Pt not complaining of respiratory symptoms and o2 sats wnl (1 episode of 02 sat in 91-92 overnight, wnl all day) -Will continue to monitor-Weekly repeat Cxrays* Next Cxray planned for 09/12 #Hyperkalemia, resolved -4.0 -Continue to monitor, am BNP -Nephrology, Dr. Luz #Hyperphosphatemia -6.5 -c/w phosplo -f/u am phosphorous #Muscle pain -Pt intermittently complaining of muscle pain, in different locations -Tylenol 650mg PO Q6 scheduled -Physical therapy eval and treat placed today. Pt agreeable to participate #DM -Endocrinology Consult (Dr Mann) appreciated- pt may have glucose impairment, but intermittent hypoglycemic episodes prompted cessation of Prandin and no further hypoglycemia -Hga1c= 5.7 on 08/19. POCG wnl. Insulin, ISS, hypoglycemic protocol, and Accuchecks d/c'd for now. Will reassess in 2 weeks DVT Prophylaxis: -SC Heparin. Pt refusing heparin. Ambulating
--- NOTE | 2017-09-10 21:00 | PN ---
ENDOCRINOLOGY FOLLOWUP NOTE DATE: LOCATION: Room 661. SUBJECTIVE: This is a 67-year-old male with recent uncontrolled type 2 diabetes, now with improved metabolic profile and has been taken off the fingerstick glucose testing at this time as he has to remain with near optimal glycemic profile as noted. The latest chemistry showed a BUN of 94, sodium 145, potassium 4.4, chloride 108, CO2 of 22, glucose 126 and creatinine 2.0. His latest thyroid study showed a T4 of 5.81 with a TSH of 4.19. So at this time, we will continue the same low-dose levothyroxine given as 50 mcg once daily as ordered and we will hold off the resumption of any kind of oral hypoglycemic therapy for now. We will obtain serial chemistries and supplement accordingly needed. We will follow Bettina Mann MD
[2017-09-11] MEDS: Levothyroxine 50 MCG TAB PO SCH (06:04)
[2017-09-11] MEDS: levETIRAcetam 100 mg/ml (5ml) Oral Syringe PO SCH ×2 (09:22→17:13)
[2017-09-11] MEDS: Bacitracin OINT 15GM TOP SCH (09:22)
[2017-09-11] MEDS: Vancomycin 500 mg (Oral/Rectal USE) PO SCH ×4 (09:23→22:10)
[2017-09-11] MEDS: Bacitracin 500 Units/gm Oint Foilpak UD TOP SCH ×3 (09:24→17:13)
[2017-09-11] MEDS: diltiaZEM 180 mg/24 Hours CD Cap PO SCH (09:24)
--- NOTE | 2017-09-11 12:07 | CP.PCM.PN ---
Subjective - Date & Time of Evaluation Date of Evaluation: 09/11/17 Time of Evaluation: 08:00 - Subjective Subjective: Pt seen and examined in the am. Found sleeping in bed. Stated he is comfortable but is still having right sided chest wall pain. Pt refused Lyrica offered to him last night. I explained to the pt that the medication was for his chest wall pain. Diarrhea improving as per RN, 1 soft BM. Otherwise pt has no complaints. Objective - Vital Signs/Intake and Output Vital Signs (last 24 hours): Temp Pulse Resp BP Pulse Ox 97.3 F L 87 20 163/75 H 96 09/11/17 07:43 09/11/17 09:26 09/11/17 07:43 09/11/17 09:26 09/11/17 07:43 - Medications Medications: Current Medications Acetaminophen (Tylenol 325mg Tab) 650 mg PO Q6 [facility] Last Admin: 09/11/17 09:41 Dose: 650 mg Albuterol/Ipratropium (Duoneb 3 Mg/0.5 Mg (3 Ml) Ud) 3 ml INH RQ6 PRN PRN Reason: Shortness of Breath Last Admin: 09/07/17 17:22 Dose: 3 ml Amlodipine Besylate (Norvasc) 10 mg PO DAILY [facility] Last Admin: 09/11/17 09:26 Dose: 10 mg Bacitracin (Bacitracin Oint) 1 applic TOP DAILY [facility] Last Admin: 09/11/17 09:22 Dose: 1 applic Bacitracin (Bacitracin) 1 ea TOP TID [facility] Last Admin: 09/11/17 09:24 Dose: 1 ea Bumetanide (Bumex) 1 mg PO BID [facility] Last Admin: 09/11/17 09:29 Dose: 1 mg Calcitriol (Rocaltrol) 0.25 mcg PO FRI [facility] Last Admin: 09/05/17 08:43 Dose: Not Given Calcium Acetate (Phoslo) 667 mg PO WM [facility] Last Admin: 09/11/17 09:24 Dose: 667 mg Diltiazem HCl (Cardizem Cd) 360 mg PO DAILY [facility] Last Admin: 09/11/17 09:24 Dose: 360 mg Doxazosin Mesylate (Cardura) 1 mg PO HS [facility] Last Admin: 09/05/17 03:51 Dose: Not Given Ergocalciferol (Drisdol 50,000 Intl Units Cap) 1 cap PO Q7D [facility] Last Admin: 09/09/17 10:54 Dose: 1 cap Heparin Sodium (Porcine) (Heparin) 5,000 units SC Q8 [facility] PRN Reason: Protocol Last Admin: 09/11/17 09:26 Dose: Not Given Hydralazine HCl (Apresoline) 100 mg PO Q8H [facility] Last Admin: 09/11/17 06:04 Dose: 100 mg Lactic Acid (Lac-Hydrin 12% Lotion (225 G)) 1 applic TOP TID [facility] Last Admin: 09/11/17 09:22 Dose: 1 applic Levetiracetam (Keppra) 500 mg PO BID [facility] Last Admin: 09/11/17 09:22 Dose: 500 mg Levothyroxine Sodium (Synthroid) 50 mcg PO DAILY@0630 [facility] Last Admin: 09/11/17 06:04 Dose: 50 mcg Lisinopril (Zestril) 40 mg PO DAILY [facility] Last Admin: 09/11/17 09:25 Dose: 40 mg Losartan Potassium (Cozaar) 50 mg PO DAILY [facility] Last Admin: 08/23/17 09:36 Dose: 50 mg Mirtazapine (Remeron) 30 mg PO HS [facility] Last Admin: 09/10/17 21:26 Dose: 30 mg Pregabalin (Lyrica) 75 mg PO QPM [facility] Last Admin: 09/10/17 09:27 Dose: Not Given Vancomycin HCl (Vancocin (Oral/Rectal Use)) 125 mg PO QID [facility] PRN Reason: Protocol Last Admin: 09/11/17 09:23 Dose: 125 mg - Labs Labs: 09/10/17 05:40 09/10/17 05:40 PT 15.3 Seconds (9.8-13.1) H 07/18/17 05:30 INR 1.4 (0.9-1.2) H 07/18/17 05:30 APTT 34.2 Seconds (25.6-37.1) 07/18/17 05:30 - Constitutional Appears: Well, Non-toxic, Cachectic - Eye Exam Eye Exam: Normal appearance - ENT Exam ENT Exam: Mucous Membranes Moist - Respiratory Exam Respiratory Exam: Chest Wall Tenderness (Right lower lung base), Decreased Breath Sounds, Clear to Ausculation Bilateral, Rales (left lung base), NORMAL BREATHING PATTERN - Cardiovascular Exam Cardiovascular Exam: REGULAR RHYTHM, +S1, +S2. absent: Murmur - GI/Abdominal Exam GI & Abdominal Exam: Soft. absent: Distended, Tenderness - Extremities Exam Extremities Exam: absent: Pedal Edema - Neurological Exam Neurological Exam: Alert, Awake, Oriented x3 - Skin Skin Exam: Normal Color Assessment and Plan - Assessment and Plan (Free Text) Assessment: 67M, homeless, with profound health issues that are currently stabilized with a multitude of medications to include oxygen. He is not medically or financially stable for discharge to home at this time. Currently on treatment for Cdiff, antibiotic day#7 Plan: #C.diff -Clinically improving. 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 -Continue to re-assess response #HTN -Normotensive overnight. 150's this morning -[facility], Dr. Luz on board. -C/w with antihypertensive regimen #Anemia -Hg, 11.0 today (stable) -[facility] planning for weekly EPO -F/U cbc #CKD -Crea 2.0 today -Secondary to nephrotic syndrome -Nephrology Consult (Dr Luz) greatly appreciated- c/w all recommendations -Avoid nephrotoxic meds -F/U BMP #Chronic Pleural Effusion, stable -repeat Cxray showed stability in size (09/05) -Pt not complaining of respiratory symptoms and o2 sats wnl (1 episode of 02 sat in 91-92 overnight, wnl all day) -Will continue to monitor-Weekly repeat Cxrays* Next Cxray planned for 09/12 #Hyperkalemia, resolved -4.0 -Continue to monitor, am BNP -Nephrology, Dr. Luz #Hyperphosphatemia -6.5 -c/w phosplo -f/u am phosphorous #Muscle pain -Pt intermittently complaining of muscle pain, in different locations -Tylenol 650mg PO Q6 scheduled -Physical therapy eval and treat placed today. Pt agreeable to participate #DM -Endocrinology Consult (Dr Mann) appreciated- pt may have glucose impairment, but intermittent hypoglycemic episodes prompted cessation of Prandin and no further hypoglycemia -Hga1c= 5.7 on 08/19. POCG wnl. Insulin, ISS, hypoglycemic protocol, and Accuchecks d/c'd for now. Will reassess in 2 weeks DVT Prophylaxis: -SC Heparin. Pt refusing heparin. Ambulating
--- NOTE | 2017-09-11 22:53 | CP.PCM.PN ---
Subjective - Date & Time of Evaluation Date of Evaluation: 09/11/17 Time of Evaluation: 17:30 - Subjective Subjective: Eating well per nursing staff; no shortness of breath; no more diarrhea; Objective - Vital Signs/Intake and Output Vital Signs (last 24 hours): Temp Pulse Resp BP Pulse Ox 98.1 F 74 20 146/78 94 L 09/11/17 16:03 09/11/17 22:02 09/11/17 16:03 09/11/17 22:02 09/11/17 16:03 - Medications Medications: Current Medications Acetaminophen (Tylenol 325mg Tab) 650 mg PO Q6 [facility] Last Admin: 09/11/17 22:07 Dose: 650 mg Albuterol/Ipratropium (Duoneb 3 Mg/0.5 Mg (3 Ml) Ud) 3 ml INH RQ6 PRN PRN Reason: Shortness of Breath Last Admin: 09/07/17 17:22 Dose: 3 ml Amlodipine Besylate (Norvasc) 10 mg PO DAILY [facility] Last Admin: 09/11/17 09:26 Dose: 10 mg Bacitracin (Bacitracin Oint) 1 applic TOP DAILY [facility] Last Admin: 09/11/17 09:22 Dose: 1 applic Bacitracin (Bacitracin) 1 ea TOP TID [facility] Last Admin: 09/11/17 17:13 Dose: 1 ea Bumetanide (Bumex) 1 mg PO BID [facility] Last Admin: 09/11/17 17:14 Dose: 1 mg Calcitriol (Rocaltrol) 0.25 mcg PO FRI [facility] Last Admin: 09/05/17 08:43 Dose: Not Given Calcium Acetate (Phoslo) 667 mg PO WM [facility] Last Admin: 09/11/17 19:47 Dose: 667 mg Diltiazem HCl (Cardizem Cd) 360 mg PO DAILY [facility] Last Admin: 09/11/17 09:24 Dose: 360 mg Doxazosin Mesylate (Cardura) 1 mg PO HS [facility] Last Admin: 09/05/17 03:51 Dose: Not Given Ergocalciferol (Drisdol 50,000 Intl Units Cap) 1 cap PO Q7D [facility] Last Admin: 09/09/17 10:54 Dose: 1 cap Heparin Sodium (Porcine) (Heparin) 5,000 units SC Q8 [facility] PRN Reason: Protocol Last Admin: 09/11/17 17:16 Dose: Not Given Hydralazine HCl (Apresoline) 100 mg PO Q8H [facility] Last Admin: 09/11/17 22:02 Dose: 100 mg Lactic Acid (Lac-Hydrin 12% Lotion (225 G)) 1 applic TOP TID [facility] Last Admin: 09/11/17 17:13 Dose: 1 applic Levetiracetam (Keppra) 500 mg PO BID [facility] Last Admin: 09/11/17 17:13 Dose: 500 mg Levothyroxine Sodium (Synthroid) 50 mcg PO DAILY@0630 [facility] Last Admin: 09/11/17 06:04 Dose: 50 mcg Lisinopril (Zestril) 40 mg PO DAILY [facility] Last Admin: 09/11/17 09:25 Dose: 40 mg Losartan Potassium (Cozaar) 50 mg PO DAILY [facility] Last Admin: 08/23/17 09:36 Dose: 50 mg Mirtazapine (Remeron) 30 mg PO HS [facility] Last Admin: 09/11/17 22:05 Dose: 30 mg Pregabalin (Lyrica) 75 mg PO QPM [facility] Last Admin: 09/11/17 18:46 Dose: 75 mg Vancomycin HCl (Vancocin (Oral/Rectal Use)) 125 mg PO QID [facility] PRN Reason: Protocol Last Admin: 09/11/17 22:10 Dose: 125 mg - Labs Labs: 09/10/17 05:40 09/10/17 05:40 PT 15.3 Seconds (9.8-13.1) H 07/18/17 05:30 INR 1.4 (0.9-1.2) H 07/18/17 05:30 APTT 34.2 Seconds (25.6-37.1) 07/18/17 05:30 - Constitutional Appears: Non-toxic, No Acute Distress, Cachectic - Eye Exam Eye Exam: absent: Scleral icterus - ENT Exam ENT Exam: Mucous Membranes Moist - Respiratory Exam Respiratory Exam: absent: Rales, Respiratory Distress Additional comments: decreased breath sounds at bases L >> R - Cardiovascular Exam Cardiovascular Exam: RRR, +S1, +S2 - GI/Abdominal Exam GI & Abdominal Exam: Soft. absent: Distended, Tenderness - Exam Exam: absent: Bladder Distension - Extremities Exam Additional comments: no leg edema; - Neurological Exam Neurological Exam: Alert, Awake - Psychiatric Exam Psychiatric exam: Normal Mood. absent: Agitated - Skin Skin Exam: Warm. absent: Cyanosis Assessment and Plan (1) Hyperkalemia Assessment & Plan: Currently resolved after having diarrhea; will likely recur; monitor; Status: Acute (2) Malnutrition Status: Acute (3) Hypertensive CKD (chronic kidney disease) Assessment & Plan: BP controlled lately; sujit/renin level done recently indicating that patient not volume depleted (would expect both renin and sujit to be elevated if he were) , may have some room to increase diuretics; also, not on maximal KEVIN blockade but limited by recurrent hyperkalemia; will continue current meds for now; Status: Acute (4) Chronic kidney disease, stage 3 (moderate) Assessment & Plan: With severe nephrotic syndrome; overall poor prognosis and can expect progression to ESRD in next 1-2 yrs; monitor; Status: Chronic (5) Acute renal failure Status: Resolved (6) Nephrotic syndrome Status: Chronic (7) Pleural effusion Assessment & Plan: Recurrent with L effusion again accumulating; will need thoracentesis eventually ; doubt we can do any more medical management to prevent recurrence; Status: Chronic (8) Hypothermia Status: Acute (9) Altered mental status Status: Acute (10) SIRS (systemic inflammatory response syndrome) Status: Acute (11) Anemia Assessment & Plan: Hgb stable, EPO currently on hold, will restart as needed; Status: Chronic (12) Monoclonal gammopathy Status: Chronic (13) Hypernatremia Status: Acute (14) Chronic kidney disease-mineral and bone disorder Assessment & Plan: PTH and phos elevated; continue phoslo with meals and ergocalciferol 50,000 u weekly; repeat PTH monthly; Status: Chronic
--- NOTE | 2017-09-12 01:15 | PN ---
ENDOCRINOLOGY FOLLOWUP NOTE DATE: LOCATION: In room 661 SUBJECTIVE: This is a -[id number]-ohz male with known history of type 2 diabetes, hypertension, and underlying hypothyroidism and is now being followed closely for metabolic management. His glucose values are fluctuating, but much improved at this time and the latest chemistry showed a BUN of 94, sodium 145, potassium 4.4, chloride 108, CO2 of 22, glucose 126, and creatinine 2.0. His latest thyroid studies showed a T4 of 5.8 with a TSH of 4.19. So, at this time, we will continue the same low-dose levothyroxine given as 50 mcg once daily as ordered. We will also continue the serial chemistries as ordered, but we will hold off any further fingerstick glucose testing even any low-dose correction scale as previously ordered. We will follow and advise accordingly. Bettina Mann MD
[2017-09-12] MEDS: Levothyroxine 50 MCG TAB PO SCH (05:50)
[2017-09-12 06:21] LABS: HEMOGLOBIN 10.7 g/dL (12.0-18.0); MEAN CELL VOLUME 88.9 fl (80.0-94.0); MEAN CORPUSCULAR HEMOGLOBIN 27.6 pg (27.0-31.0); RBC 3.87 Mil/uL (4.40-5.90); RED CELL DISTRIBUTION WIDTH 18.1 % (11.5-14.5)
--- NOTE | 2017-09-12 07:51 | RAD ---
HISTORY: Monitor chronic pleural effusion COMPARISON: Frontal chest radiograph 09/05/2017. FINDINGS: Left upper extremity PICC unchanged in position. LUNGS: Persistent moderate left pleural effusion is unchanged with underlying airspace disease or even lesion not excluded here. Trace airspace disease remains at the medial right lung zone inferiorly. No right pleural effusion. No definite pneumothorax bilaterally. PLEURA: As above. CARDIOVASCULAR: Cardiac silhouette appears stable. No definite pulmonary vascular derangement identified. OSSEOUS STRUCTURES: No significant abnormalities. VISUALIZED UPPER ABDOMEN: Normal. OTHER FINDINGS: None. IMPRESSION: Left pleural effusion unchanged with underlying airspace disease or even lesion not excluded once again. Trace patchy density is seen at the medial inferior right lung zone. No pneumothorax bilaterally.
[2017-09-12 07:58] LABS: CALCIUM 8.6 mg/dL (8.4-10.2)
[2017-09-12] MEDS: Bacitracin 500 Units/gm Oint Foilpak UD TOP SCH ×3 (09:00→17:23)
[2017-09-12] MEDS ORDERED: Epoetin Alfa 4000 UNIT/ML Inj SC SCH (09:00)
[2017-09-12] MEDS ORDERED: Sod Polystyrene Sulf 15 gm/60 ml Susp PO ONE (09:22)
--- NOTE | 2017-09-12 09:26 | CP.PCM.PN ---
Subjective - Date & Time of Evaluation Date of Evaluation: 09/12/17 Time of Evaluation: 08:00 - Subjective Subjective: Pt seen and examined at bedside this am. No complaints. States diarrhea has resolved. Chest wall pain still presents but better today. Refusing kayexelate, I educated pt on the importance of the medication for his health. Pt still refusing. Objective - Vital Signs/Intake and Output Vital Signs (last 24 hours): Temp Pulse Resp BP Pulse Ox 97.6 F 54 L 20 142/67 97 09/12/17 07:49 09/12/17 07:49 09/12/17 07:49 09/12/17 07:49 09/12/17 07:49 - Medications Medications: Current Medications Acetaminophen (Tylenol 325mg Tab) 650 mg PO Q6 [facility] Last Admin: 09/12/17 04:49 Dose: Not Given Albuterol/Ipratropium (Duoneb 3 Mg/0.5 Mg (3 Ml) Ud) 3 ml INH RQ6 PRN PRN Reason: Shortness of Breath Last Admin: 09/07/17 17:22 Dose: 3 ml Amlodipine Besylate (Norvasc) 10 mg PO DAILY [facility] Last Admin: 09/11/17 09:26 Dose: 10 mg Bacitracin (Bacitracin Oint) 1 applic TOP DAILY [facility] Last Admin: 09/11/17 09:22 Dose: 1 applic Bacitracin (Bacitracin) 1 ea TOP TID [facility] Last Admin: 09/11/17 17:13 Dose: 1 ea Bumetanide (Bumex) 1 mg PO BID [facility] Last Admin: 09/11/17 17:14 Dose: 1 mg Calcitriol (Rocaltrol) 0.25 mcg PO FRI [facility] Last Admin: 09/05/17 08:43 Dose: Not Given Calcium Acetate (Phoslo) 667 mg PO WM [facility] Last Admin: 09/11/17 19:47 Dose: 667 mg Diltiazem HCl (Cardizem Cd) 360 mg PO DAILY [facility] Last Admin: 09/11/17 09:24 Dose: 360 mg Doxazosin Mesylate (Cardura) 1 mg PO HS [facility] Last Admin: 09/05/17 03:51 Dose: Not Given Ergocalciferol (Drisdol 50,000 Intl Units Cap) 1 cap PO Q7D [facility] Last Admin: 09/09/17 10:54 Dose: 1 cap Heparin Sodium (Porcine) (Heparin) 5,000 units SC Q8 [facility] PRN Reason: Protocol Last Admin: 09/12/17 00:53 Dose: 5,000 units Hydralazine HCl (Apresoline) 100 mg PO Q8H [facility] Last Admin: 09/12/17 05:48 Dose: 100 mg Lactic Acid (Lac-Hydrin 12% Lotion (225 G)) 1 applic TOP TID [facility] Last Admin: 09/11/17 17:13 Dose: 1 applic Levetiracetam (Keppra) 500 mg PO BID [facility] Last Admin: 09/11/17 17:13 Dose: 500 mg Levothyroxine Sodium (Synthroid) 50 mcg PO DAILY@0630 [facility] Last Admin: 09/12/17 05:50 Dose: 50 mcg Lisinopril (Zestril) 40 mg PO DAILY [facility] Last Admin: 09/11/17 09:25 Dose: 40 mg Losartan Potassium (Cozaar) 50 mg PO DAILY [facility] Last Admin: 08/23/17 09:36 Dose: 50 mg Mirtazapine (Remeron) 30 mg PO HS [facility] Last Admin: 09/11/17 22:05 Dose: 30 mg Pregabalin (Lyrica) 75 mg PO QPM [facility] Last Admin: 09/11/17 18:46 Dose: 75 mg Vancomycin HCl (Vancocin (Oral/Rectal Use)) 125 mg PO QID [facility] PRN Reason: Protocol Last Admin: 09/11/17 22:10 Dose: 125 mg - Labs Labs: 09/12/17 05:45 09/12/17 05:45 PT 15.3 Seconds (9.8-13.1) H 07/18/17 05:30 INR 1.4 (0.9-1.2) H 07/18/17 05:30 APTT 34.2 Seconds (25.6-37.1) 07/18/17 05:30 - Constitutional Appears: Well, Non-toxic, No Acute Distress, Cachectic, Chronically Ill - Respiratory Exam Respiratory Exam: Rales (Left lung base). absent: Accessory Muscle Use, Rhonchi , Wheezes, Respiratory Distress, Stridor - Cardiovascular Exam Cardiovascular Exam: REGULAR RHYTHM, +S1, +S2. absent: Murmur - GI/Abdominal Exam GI & Abdominal Exam: Soft, Normal Bowel Sounds. absent: Tenderness - Neurological Exam Neurological Exam: Alert, Awake, Oriented x3 - Psychiatric Exam Psychiatric exam: Normal Affect Assessment and Plan - Assessment and Plan (Free Text) Assessment: 67M, homeless, with profound health issues that are currently stabilized with a multitude of medications to include oxygen. He is not medically or financially stable for discharge to home at this time. Currently on treatment for Cdiff, antibiotic day#8. Serial Cxray due today for monitoring of chronic pleural effusion. Plan: #C.diff -Clinically improved. -C/w Vanco PO day 8 (will continue for 10-14 days) -no fever, white count -continue to monitor #Chest wall pain, chronic -Mild, intermittent, +Allodynia. 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 -Continue to re-assess response #HTN -Normotensive overnight. 150's this morning -[employer], Dr. Luz on board. -C/w with antihypertensive regimen #Anemia -Hg, 11.0 today (stable) -[employer] planning for weekly EPO -F/U cbc #CKD -Crea 2.0 today -Secondary to nephrotic syndrome -Nephrology Consult (Dr Luz) greatly appreciated- c/w all recommendations -Avoid nephrotoxic meds -F/U BMP #Chronic Pleural Effusion, stable -repeat Cxray showed stability in size (09/05) -Pt not complaining of respiratory symptoms and o2 sats wnl (1 episode of 02 sat in 91-92 overnight, wnl all day) -Will continue to monitor-Weekly repeat Cxrays* Next Cxray planned for today #Hyperkalemia, acute -5.4 today -Kayexelate x1 ordered -Continue to monitor, am BNP -Nephrology, Dr. Luz #Hyperphosphatemia -6.5 -c/w phosplo -f/u am phosphorous #Muscle pain -Pt intermittently complaining of muscle pain, in different locations -Tylenol 650mg PO Q6 scheduled -Physical therapy eval and treat placed today. Pt agreeable to participate #DM -Endocrinology Consult (Dr Mann) appreciated- pt may have glucose impairment, but intermittent hypoglycemic episodes prompted cessation of Prandin and no further hypoglycemia -Hga1c= 5.7 on 08/19. POCG wnl. Insulin, ISS, hypoglycemic protocol, and Accuchecks d/c'd for now. Will reassess in 2 weeks DVT Prophylaxis: -SC Heparin. Pt refusing heparin. Ambulating
[2017-09-12] MEDS: levETIRAcetam 100 mg/ml (5ml) Oral Syringe PO SCH ×2 (10:21→17:25)
[2017-09-12] MEDS: diltiaZEM 180 mg/24 Hours CD Cap PO SCH (10:22)
[2017-09-12] MEDS: Vancomycin 500 mg (Oral/Rectal USE) PO SCH ×4 (10:26→22:02)
[2017-09-12] MEDS: Sod Polystyrene Sulf 15 gm/60 ml Susp PO ONE ×2 (10:33→11:03)
[2017-09-12] MEDS: Bacitracin OINT 15GM TOP SCH ×2 (13:46→17:23)
--- NOTE | 2017-09-12 14:11 | PN ---
DATE: ENDO FOLLOWUP NOTE LOCATION: Room 661. SUBJECTIVE: This is a 66-year-old male with recent uncontrolled type 2 diabetes, currently taken off all oral glycemic therapy and is now being followed closely for metabolic management. He also remains clinically and biochemically euthyroid at this time and the latest thyroid study showed T4 of 5.81 with the TSH of 4.19. His latest chemistry showed BUN of , sodium of 144, potassium of 5.4, chloride of 109, CO2 of 23, glucose of 98, and creatinine of 2.4. So at this time, we will continue the same levothyroxine given at 50 mcg once daily as ordered. There is no indication at this time to resume his oral hypoglycemic therapy as given. We will follow. Bettina Mann MD
[2017-09-13] MEDS: Levothyroxine 50 MCG TAB PO SCH (06:51)
[2017-09-13 06:59] LABS: CALCIUM 8.6 mg/dL (8.4-10.2)
[2017-09-13] MEDS ORDERED: Albuterol-Ipratrop 3 mg / 0.5 (3 ml) UD INH SCH (08:00)
[2017-09-13] MEDS ORDERED: Albuterol 0.083% Inhal Sol (2.5 mg/3 mL) UD INH STA (08:13)
[2017-09-13] MEDS ORDERED: Sod Polystyrene Sulf 15 gm/60 ml Susp PO ONE ×2 (08:18→18:09)
[2017-09-13] MEDS ORDERED: Insulin Regular 100 units/ml SC STA (08:31)
[2017-09-13] MEDS ORDERED: Dextrose 50% SYRINGE Inj (50 ml) IVP STA (08:33)
[2017-09-13] MEDS ORDERED: Calcium Gluconate 4.65 mEq/10 ml Inj IV ONE (08:42)
[2017-09-13] MEDS: Bacitracin 500 Units/gm Oint Foilpak UD TOP SCH ×2 (10:12→13:38)
[2017-09-13] MEDS: diltiaZEM 180 mg/24 Hours CD Cap PO SCH (10:13)
[2017-09-13] MEDS: levETIRAcetam 100 mg/ml (5ml) Oral Syringe PO SCH ×2 (10:14→17:06)
[2017-09-13] MEDS: Vancomycin 500 mg (Oral/Rectal USE) PO SCH ×4 (10:16→21:23)
--- NOTE | 2017-09-13 12:25 | CP.PCM.PN ---
Addendum entered and electronically signed by Lynette Olivo MD 09/13/17 15:44: Repeat BMP shows potassium 5.7 F/U evening BMP. Original Note: Subjective - Date & Time of Evaluation Date of Evaluation: 09/13/17 Time of Evaluation: 09:00 - Subjective Subjective: Pt seen this am. Has been refusing kayexelate the previous days. I spoke to pt again regarding the severe risks to his heart rhythm if he declines kayexelate. Pt complains that it gives him diarrhea. After educating, he became agreeable, but later declined as per RN. Pt otherwise has no complaint other than non productive phlegminous cough and right pleuritic chest pain which ahs not changed in intensity. Denies sob, muscle weakness, palpitations. Diarrhea improving. Tolerating regular diet. Objective - Vital Signs/Intake and Output Vital Signs (last 24 hours): Temp Pulse Resp BP Pulse Ox 97.5 F L 67 20 132/67 95 09/13/17 07:51 09/13/17 10:15 09/13/17 07:51 09/13/17 10:15 09/13/17 07:51 - Medications Medications: Current Medications Acetaminophen (Tylenol 325mg Tab) 650 mg PO Q6 [facility] Last Admin: 09/13/17 10:20 Dose: 650 mg Albuterol/Ipratropium (Duoneb 3 Mg/0.5 Mg (3 Ml) Ud) 3 ml INH RQ4 [facility] Amlodipine Besylate (Norvasc) 10 mg PO DAILY [facility] Last Admin: 09/13/17 10:15 Dose: 10 mg Bacitracin (Bacitracin Oint) 1 applic TOP DAILY [facility] Last Admin: 09/12/17 17:23 Dose: 1 applic Bacitracin (Bacitracin) 1 ea TOP TID [facility] Last Admin: 09/13/17 10:12 Dose: 1 ea Bumetanide (Bumex) 1 mg PO BID [facility] Last Admin: 09/13/17 10:12 Dose: 1 mg Calcitriol (Rocaltrol) 0.25 mcg PO FRI [facility] Last Admin: 09/12/17 10:25 Dose: 0.25 mcg Calcium Acetate (Phoslo) 667 mg PO WM [facility] Last Admin: 09/13/17 10:16 Dose: 667 mg Diltiazem HCl (Cardizem Cd) 360 mg PO DAILY [facility] Last Admin: 09/13/17 10:13 Dose: 360 mg Doxazosin Mesylate (Cardura) 1 mg PO HS [facility] Last Admin: 09/05/17 03:51 Dose: Not Given Ergocalciferol (Drisdol 50,000 Intl Units Cap) 1 cap PO Q7D [facility] Last Admin: 09/09/17 10:54 Dose: 1 cap Heparin Sodium (Porcine) (Heparin) 5,000 units SC Q8 [facility] PRN Reason: Protocol Last Admin: 09/13/17 10:14 Dose: Not Given Hydralazine HCl (Apresoline) 100 mg PO Q8H [facility] Last Admin: 09/13/17 06:52 Dose: Not Given Lactic Acid (Lac-Hydrin 12% Lotion (225 G)) 1 applic TOP TID [facility] Last Admin: 09/13/17 10:14 Dose: 1 applic Levetiracetam (Keppra) 500 mg PO BID [facility] Last Admin: 09/13/17 10:14 Dose: 500 mg Levothyroxine Sodium (Synthroid) 50 mcg PO DAILY@0630 [facility] Last Admin: 09/13/17 06:51 Dose: Not Given Lisinopril (Zestril) 40 mg PO DAILY [facility] Last Admin: 09/12/17 10:26 Dose: 40 mg Losartan Potassium (Cozaar) 50 mg PO DAILY [facility] Last Admin: 08/23/17 09:36 Dose: 50 mg Mirtazapine (Remeron) 30 mg PO HS [facility] Last Admin: 09/12/17 21:11 Dose: 30 mg Pregabalin (Lyrica) 75 mg PO QPM [facility] Last Admin: 09/12/17 17:34 Dose: 75 mg Vancomycin HCl (Vancocin (Oral/Rectal Use)) 125 mg PO QID [facility] PRN Reason: Protocol Last Admin: 09/13/17 10:16 Dose: 125 mg - Labs Labs: 09/12/17 05:45 09/13/17 05:30 PT 15.3 Seconds (9.8-13.1) H 07/18/17 05:30 INR 1.4 (0.9-1.2) H 07/18/17 05:30 APTT 34.2 Seconds (25.6-37.1) 07/18/17 05:30 - Constitutional Appears: Non-toxic, No Acute Distress, Cachectic, Chronically Ill - Head Exam Head Exam: NORMAL INSPECTION - Eye Exam Eye Exam: Normal appearance - ENT Exam ENT Exam: Mucous Membranes Moist - Respiratory Exam Respiratory Exam: Chest Wall Tenderness, Rales (Right lower lung ), NORMAL BREATHING PATTERN. absent: Wheezes - Cardiovascular Exam Cardiovascular Exam: REGULAR RHYTHM, +S1, +S2. absent: Murmur - GI/Abdominal Exam GI & Abdominal Exam: Soft, Normal Bowel Sounds. absent: Distended, Tenderness - Extremities Exam Extremities Exam: Normal Inspection - Neurological Exam Neurological Exam: Alert, Awake, Oriented x3 - Psychiatric Exam Psychiatric exam: Normal Affect - Skin Skin Exam: Normal Color Assessment and Plan - Assessment and Plan (Free Text) Assessment: 67M, homeless, with profound health issues that are currently stabilized with a multitude of medications to include oxygen. He is not medically or financially stable for discharge to home at this time. Currently on treatment for Cdiff, antibiotic day#9. Plan: #C.diff -Clinically improved -C/w Vanco PO day 9 (will continue for 10-14 days) -no fever, white count -continue to monitor #Hyperkalemia -6.5 this morning w/ EKG Changes (1st degree block, Peaked T waves), asymptomatic -s/p Calcium Gluconate (2g), Insulin 10, D50, and ALbuterol 10 -Kayexelate -f/u am afternoon BMP #Chest wall pain, chronic -Mild, intermittent, +Allodynia. 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 -Continue to re-assess response #HTN -Normotensive overnight. 150's this morning -[employer] Analyst, Dr. Luz on board. -C/w with antihypertensive regimen #Anemia -Hg, 11.0 today (stable) -[employer] Analyst planning for weekly EPO -F/U cbc #CKD -Crea 2.0 today -Secondary to nephrotic syndrome -Nephrology Consult (Dr Luz) greatly appreciated- c/w all recommendations -Avoid nephrotoxic meds -F/U BMP #Chronic Pleural Effusion, stable -repeat Cxray showed stability in size (09/12) -Pt not complaining of respiratory symptoms and o2 sats wnl (1 episode of 02 sat in 91-92 overnight, wnl all day) -Will continue to monitor-Weekly repeat Cxrays* Next Cxray planned for today #Hyperkalemia, acute -5.4 today -Kayexelate x1 ordered -Continue to monitor, am BNP -Nephrology, Dr. Luz #Hyperphosphatemia -6.5 -c/w phosplo -f/u am phosphorous #Muscle pain -Pt intermittently complaining of muscle pain, in different locations -Tylenol 650mg PO Q6 scheduled -Physical therapy eval and treat placed today. Pt agreeable to participate #DM -Endocrinology Consult (Dr Mann) appreciated- pt may have glucose impairment, but intermittent hypoglycemic episodes prompted cessation of Prandin and no further hypoglycemia -Hga1c= 5.7 on 08/19. POCG wnl. Insulin, ISS, hypoglycemic protocol, and Accuchecks d/c'd for now. Will reassess in 2 weeks DVT Prophylaxis: -SC Heparin. Pt refusing heparin. Ambulating
[2017-09-13 12:57] LABS: CALCIUM 9.3 mg/dL (8.4-10.2)
--- NOTE | 2017-09-13 14:49 | CARD ---
APPROVED REPORT EKG Measurement Heart [id number] <Conclusion> Sinus rhythm with 1st degree AV block Otherwise normal ECG
--- NOTE | 2017-09-13 14:52 | CARD ---
APPROVED REPORT EKG Measurement Heart [id number] <Conclusion> Sinus rhythm with 1st degree AV block Low voltage QRS Borderline ECG
[2017-09-13] MEDS: Albuterol-Ipratrop 3 mg / 0.5 (3 ml) UD INH SCH ×2 (16:14→19:44)
[2017-09-13 16:46] LABS: CALCIUM 9.2 mg/dL (8.4-10.2)
[2017-09-13] MEDS: Sodium Chloride 0.9% 1,000 ML IV SCH (17:08)
--- NOTE | 2017-09-13 19:19 | CP.PCM.PCO ---
Addendum Addendum: 09/13/17 19:15 Patient seen and evaluated bedside Patient cooperative, asymptomatic, had 6 BM samall diarrhea with kayexalate PE CV: NSR, no rales, diminished breath sonund bibasal GI: well hydrated, IV fluids running Patient with chronic hyperkalemia. today in the morning 6.5 This afternoon K 5.8 after receiving in the morning Isnulin, D50, Ca gluconate, kayexalate 30 EKG repeated in the afternoon, same chronic peak t wave V4,V5,V6 Given other dose Kayexalate 30 mg. timothy repeat BMP 23:30 case discuassed with attendint
[2017-09-13 23:43] LABS: CALCIUM 8.4 mg/dL (8.4-10.2)
[2017-09-14] MEDS: Albuterol-Ipratrop 3 mg / 0.5 (3 ml) UD INH SCH ×7 (00:03→23:43)
[2017-09-14 04:04] LABS: MEAN CELL VOLUME 88.2 fl (80.0-94.0); MEAN CORPUSCULAR HEMOGLOBIN 28.2 pg (27.0-31.0); RBC 3.2 Mil/uL (4.40-5.90); RED CELL DISTRIBUTION WIDTH 17.7 % (11.5-14.5); WHITE BLOOD COUNT 7.4 K/uL (4.8-10.8)
[2017-09-14 04:22] LABS: CALCIUM 8.2 mg/dL (8.4-10.2)
[2017-09-14] MEDS: Sodium Chloride 0.9% 1,000 ML IV SCH (05:08)
[2017-09-14] MEDS: Levothyroxine 50 MCG TAB PO SCH (06:12)
[2017-09-14] MEDS: diltiaZEM 180 mg/24 Hours CD Cap PO SCH (08:51)
[2017-09-14] MEDS: Vancomycin 500 mg (Oral/Rectal USE) PO SCH ×4 (08:53→22:30)
[2017-09-14] MEDS: levETIRAcetam 100 mg/ml (5ml) Oral Syringe PO SCH ×2 (08:53→17:08)
--- NOTE | 2017-09-14 10:11 | CP.PCM.PN ---
Subjective - Date & Time of Evaluation Date of Evaluation: 09/14/17 Time of Evaluation: 09:30 - Subjective Subjective: 67M seen and examined at bedside with attending. Pt feeling "okay" but still c/o RLE calf pain. Otherwise, he denies chest pain or SOB. Objective - Vital Signs/Intake and Output Vital Signs (last 24 hours): Temp Pulse Resp BP Pulse Ox 36.4 C 81 20 137/71 100 09/14/17 08:00 09/14/17 09:12 09/14/17 08:00 09/14/17 09:12 09/14/17 08:00 Intake and Output: 09/14/17 09/14/17 06:59 18:59 Intake Total 2140 Output Total 400 Balance 1740 - Medications Medications: Current Medications Acetaminophen (Tylenol 325mg Tab) 650 mg PO Q6 [facility] Last Admin: 09/14/17 09:12 Dose: Not Given Albuterol/Ipratropium (Duoneb 3 Mg/0.5 Mg (3 Ml) Ud) 3 ml INH RQ4 [facility] Last Admin: 09/14/17 07:14 Dose: 3 ml Amlodipine Besylate (Norvasc) 10 mg PO DAILY [facility] Last Admin: 09/14/17 08:51 Dose: 10 mg Bumetanide (Bumex) 1 mg PO BID [facility] Last Admin: 09/14/17 08:52 Dose: 1 mg Calcitriol (Rocaltrol) 0.25 mcg PO FRI [facility] Last Admin: 09/12/17 10:25 Dose: 0.25 mcg Calcium Acetate (Phoslo) 667 mg PO WM [facility] Last Admin: 09/14/17 08:50 Dose: 667 mg Diltiazem HCl (Cardizem Cd) 360 mg PO DAILY [facility] Last Admin: 09/14/17 08:51 Dose: 360 mg Doxazosin Mesylate (Cardura) 1 mg PO HS [facility] Last Admin: 09/05/17 03:51 Dose: Not Given Ergocalciferol (Drisdol 50,000 Intl Units Cap) 1 cap PO Q7D [facility] Last Admin: 09/09/17 10:54 Dose: 1 cap Heparin Sodium (Porcine) (Heparin) 5,000 units SC Q8 [facility] PRN Reason: Protocol Last Admin: 09/14/17 08:52 Dose: Not Given Hydralazine HCl (Apresoline) 100 mg PO Q8H [facility] Last Admin: 09/14/17 06:11 Dose: 100 mg Sodium Chloride (Sodium Chloride 0.9%) 1,000 mls @ 75 mls/hr IV .[id number] [facility] Stop: 09/14/17 16:54 Last Admin: 09/14/17 05:08 Dose: 75 mls/hr Lactic Acid (Lac-Hydrin 12% Lotion (225 G)) 1 applic TOP TID [facility] Last Admin: 09/14/17 09:02 Dose: 1 applic Levetiracetam (Keppra) 500 mg PO BID [facility] Last Admin: 09/14/17 08:53 Dose: 500 mg Levothyroxine Sodium (Synthroid) 50 mcg PO DAILY@0630 [facility] Last Admin: 09/14/17 06:12 Dose: 50 mcg Lisinopril (Zestril) 40 mg PO DAILY [facility] Last Admin: 09/14/17 09:12 Dose: 40 mg Losartan Potassium (Cozaar) 50 mg PO DAILY [facility] Last Admin: 08/23/17 09:36 Dose: 50 mg Mirtazapine (Remeron) 30 mg PO HS [facility] Last Admin: 09/14/17 05:50 Dose: Not Given Pregabalin (Lyrica) 75 mg PO QPM [facility] Last Admin: 09/13/17 18:27 Dose: 75 mg Vancomycin HCl (Vancocin (Oral/Rectal Use)) 125 mg PO QID [facility] PRN Reason: Protocol Last Admin: 09/14/17 08:53 Dose: 125 mg - Labs Labs: 09/14/17 03:30 09/14/17 03:30 PT 15.3 Seconds (9.8-13.1) H 07/18/17 05:30 INR 1.4 (0.9-1.2) H 07/18/17 05:30 APTT 34.2 Seconds (25.6-37.1) 07/18/17 05:30 - Constitutional Appears: Non-toxic, No Acute Distress, Older Than Stated Age, Cachectic, Chronically Ill - Head Exam Head Exam: ATRAUMATIC, NORMAL INSPECTION - ENT Exam ENT Exam: Mucous Membranes Moist - Respiratory Exam Respiratory Exam: Decreased Breath Sounds (b/l bases are decreased L>R), Rhonchi (RIGHT primarily), NORMAL BREATHING PATTERN. absent: Wheezes, Respiratory Distress - Cardiovascular Exam Cardiovascular Exam: REGULAR RHYTHM - GI/Abdominal Exam GI & Abdominal Exam: Soft, Normal Bowel Sounds. absent: Tenderness - Extremities Exam Extremities Exam: Calf Tenderness (RIGHT without erythema, BUT palpable cord, and ttp), Normal Capillary Refill. absent: Pedal Edema - Neurological Exam Neurological Exam: Alert, Awake - Psychiatric Exam Psychiatric exam: Normal Affect, Normal Mood - Skin Skin Exam: Dry, Warm Assessment and Plan - Assessment and Plan (Free Text) Assessment: 67M with complex co-morbidities that result in recurrent/resultant acute decompensations. Most recently patient had acute hyperkalemia that was successfully treated with insulin/glucose/calcium/albuterol/kayexelate. Improved at this time with improved EKG findings, Nephrology aware. Plan: - CKD: Nephrology consult appreciated, stable, chronic, c/w medications as recommended - Hyperkalemia: manage with kayexelate (pt resistant due to associated diarrhea) - HTN: controlled as per Nephrology - C. diff: improved, on PO vancomycin - b/l pleural effusions: stable due to nephrology management, Weekly CXRs - DVT Prophyalxis: SC Heparin - RLE pain: Venous duplex is pending although low suspicion for DVT
[2017-09-14] MEDS ORDERED: Sod Polystyrene Sulf 15 gm/60 ml Susp PO ONE (13:16)
--- NOTE | 2017-09-14 14:14 | PN ---
DATE: ENDOCRINOLOGY FOLLOWUP NOTE LOCATION: Room number 661. SUBJECTIVE: This is a 67-year-old male with recent acute respiratory failure and underlying pleural effusion and is now being followed closely for metabolic management. He remains clinically and biochemically euthyroid at this time. LABORATORY DATA: The latest chemistries showed a BUN of 95, sodium of 145, potassium of 5.4, chloride of 108, CO2 of 26, glucose of 128 and creatinine of 2.4. His latest thyroid studies showed a T4 of 5.8 with a TSH of 4.19. IMPRESSION AND PLAN: So at this time, we will continue the same levothyroxine given as 50 mcg once daily as ordered. We will titrate incremental as indicated to optimize metabolic control. We will hold the resumption of his oral hypoglycemic therapy as his oral intake remains variable and suboptimal at this time. We will follow and advise accordingly. Bettina Mann MD
--- NOTE | 2017-09-14 17:24 | US ---
PROCEDURE: Bilateral lower extremity venous duplex Doppler. HISTORY: r/o RLE DVT COMPARISON: None available. TECHNIQUE: Bilateral common femoral, superficial femoral, popliteal and posterior tibial veins were evaluated. Flow was assessed with color Doppler, compressibility, assessment of phasic flow and augmentation response. FINDINGS: COMMON FEMORAL VEIN: Right CFV: Unremarkable. Left CFV: Unremarkable. SUPERFICIAL FEMORAL VEIN: Right SFV: Unremarkable. Left SFV: Unremarkable. POPLITEAL VEIN: Right Popliteal: Unremarkable. Left Popliteal: Unremarkable. POSTERIOR TIBIAL VEIN: Right PTV: Unremarkable. Left PTV: Unremarkable. OTHER FINDINGS: None. IMPRESSION: No evidence of deep venous thrombosis.
[2017-09-15] MEDS: Albuterol-Ipratrop 3 mg / 0.5 (3 ml) UD INH SCH ×6 (03:46→23:59)
[2017-09-15] MEDS: Levothyroxine 50 MCG TAB PO SCH (06:36)
[2017-09-15 07:12] LABS: CALCIUM 7.9 mg/dL (8.4-10.2)
--- NOTE | 2017-09-15 08:58 | PN ---
DATE: ENDO FOLLOWUP NOTE LOCATION: Room 661. SUBJECTIVE: This is a 67-year-old male with recent acute respiratory failure and now being followed closely for metabolic management. He also has underlying hypothyroidism and is tolerating the levothyroxine replacement therapy as given. His latest thyroid study showed T4 of 5.8 with the TSH of 4.19. His glycemic levels have remained near optimal at this time. The latest chemistry showed BUN of 94, sodium of 145, potassium of 4.4, chloride of 108, CO2 of 22, glucose of 126, and creatinine of 2.0. So at this time, we will continue the same levothyroxine given as 50 mcg once daily as ordered. We will hold off the resumption of his oral hypoglycemic drug therapy as given. We will obtain serial chemistries and supplement accordingly as needed. We will follow. Bettina Mann MD
[2017-09-15] MEDS: diltiaZEM 180 mg/24 Hours CD Cap PO SCH (09:45)
[2017-09-15] MEDS: Vancomycin 500 mg (Oral/Rectal USE) PO SCH ×4 (09:46→23:09)
[2017-09-15] MEDS: levETIRAcetam 100 mg/ml (5ml) Oral Syringe PO SCH ×2 (09:46→16:58)
--- NOTE | 2017-09-15 10:23 | CP.PCM.PN ---
Subjective - Date & Time of Evaluation Date of Evaluation: 09/15/17 Time of Evaluation: 08:00 - Subjective Subjective: Pt seen and examined at the bedside. Seen sleeping comfortably. When awoken, complaints of mild chest pain on deep expiration. No diarrhea. Tolerating diet. Out of bed to chair during all meals. Objective - Vital Signs/Intake and Output Vital Signs (last 24 hours): Temp Pulse Resp BP Pulse Ox 97.9 F 89 20 154/64 H 91 L 09/15/17 07:53 09/15/17 09:47 09/15/17 07:53 09/15/17 09:47 09/15/17 07:53 - Medications Medications: Current Medications Acetaminophen (Tylenol 325mg Tab) 650 mg PO Q6 [facility] Last Admin: 09/15/17 09:54 Dose: 650 mg Albuterol/Ipratropium (Duoneb 3 Mg/0.5 Mg (3 Ml) Ud) 3 ml INH RQ4 [facility] Last Admin: 09/15/17 08:21 Dose: 3 ml Amlodipine Besylate (Norvasc) 10 mg PO DAILY [facility] Last Admin: 09/15/17 09:46 Dose: 10 mg Bumetanide (Bumex) 1 mg PO Q8@0100,0900,1700 [facility] Last Admin: 09/15/17 09:45 Dose: 1 mg Calcitriol (Rocaltrol) 0.25 mcg PO FRI [facility] Last Admin: 09/12/17 10:25 Dose: 0.25 mcg Calcium Acetate (Phoslo) 667 mg PO WM [facility] Last Admin: 09/15/17 09:41 Dose: 667 mg Diltiazem HCl (Cardizem Cd) 360 mg PO DAILY [facility] Last Admin: 09/15/17 09:45 Dose: 360 mg Doxazosin Mesylate (Cardura) 1 mg PO HS [facility] Last Admin: 09/05/17 03:51 Dose: Not Given Ergocalciferol (Drisdol 50,000 Intl Units Cap) 1 cap PO Q7D [facility] Last Admin: 09/09/17 10:54 Dose: 1 cap Heparin Sodium (Porcine) (Heparin) 5,000 units SC Q8 [facility] PRN Reason: Protocol Last Admin: 09/15/17 00:15 Dose: Not Given Hydralazine HCl (Apresoline) 100 mg PO Q8H [facility] Last Admin: 09/15/17 06:09 Dose: 100 mg Lactic Acid (Lac-Hydrin 12% Lotion (225 G)) 1 applic TOP TID [facility] Last Admin: 09/15/17 09:48 Dose: 1 applic Levetiracetam (Keppra) 500 mg PO BID [facility] Last Admin: 09/15/17 09:46 Dose: 500 mg Levothyroxine Sodium (Synthroid) 50 mcg PO DAILY@0630 [facility] Last Admin: 09/15/17 06:36 Dose: 50 mcg Lisinopril (Zestril) 40 mg PO DAILY [facility] Last Admin: 09/15/17 09:47 Dose: 40 mg Losartan Potassium (Cozaar) 50 mg PO DAILY [facility] Last Admin: 08/23/17 09:36 Dose: 50 mg Mirtazapine (Remeron) 30 mg PO HS [facility] Last Admin: 09/14/17 22:27 Dose: 30 mg Pregabalin (Lyrica) 75 mg PO QPM [facility] Last Admin: 09/14/17 18:17 Dose: 75 mg Vancomycin HCl (Vancocin (Oral/Rectal Use)) 125 mg PO QID [facility] PRN Reason: Protocol Last Admin: 09/15/17 09:46 Dose: 125 mg - Labs Labs: 09/14/17 03:30 09/15/17 06:30 PT 15.3 Seconds (9.8-13.1) H 07/18/17 05:30 INR 1.4 (0.9-1.2) H 07/18/17 05:30 APTT 34.2 Seconds (25.6-37.1) 07/18/17 05:30 - Constitutional Appears: Non-toxic, Cachectic, Chronically Ill - Head Exam Head Exam: NORMAL INSPECTION - Eye Exam Eye Exam: Normal appearance - ENT Exam ENT Exam: Mucous Membranes Moist - Respiratory Exam Respiratory Exam: Chest Wall Tenderness (Right lower lung near chest tube site) , Decreased Breath Sounds (LEft lower lung base), Rales. absent: Rhonchi, Wheezes, Respiratory Distress - Cardiovascular Exam Cardiovascular Exam: REGULAR RHYTHM, +S1, +S2. absent: Murmur - GI/Abdominal Exam GI & Abdominal Exam: Soft. absent: Distended, Tenderness - Extremities Exam Extremities Exam: absent: Pedal Edema - Neurological Exam Neurological Exam: Alert, Awake, Oriented x3 - Psychiatric Exam Psychiatric exam: Normal Affect Assessment and Plan - Assessment and Plan (Free Text) Assessment: Assessment: 67M, homeless, with profound health issues that are currently stabilized with a multitude of medications to include oxygen. He is not medically or financially stable for discharge to home at this time. Currently on treatment for Cdiff, antibiotic day#11. Plan: #C.diff -Clinically improved -C/w Vanco PO day 11 (stop after 14 days) -no fever, white count -continue to monitor #Hyperkalemia -5.3 this morning -c/w scheduled albuterol -Kayexelate 15 today -f/u am BMP -Lisinopril held #Chest wall pain, chronic -Mild, intermittent, +Allodynia. 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 -Continue to re-assess response #HTN -Normotensive overnight. 150's this morning -Room Cooler Installer, Dr. Luz on board. -C/w with antihypertensive regimen #Anemia -Hg, 9 today (stable) -Room Cooler Installer planning for weekly EPO -F/U cbc #CKD -Crea 2.2 today -Secondary to nephrotic syndrome -Nephrology Consult (Dr Luz) greatly appreciated- c/w all recommendations -Avoid nephrotoxic meds -F/U BMP #Chronic Pleural Effusion, stable -repeat Cxray showed stability in size (09/12) -Pt not complaining of respiratory symptoms and o2 sats wnl (1 episode of 02 sat in 91-92 overnight, wnl all day) -Will continue to monitor-Weekly repeat Cxrays* Next Cxray planned for today #Hyperphosphatemia -6.5 -c/w phosplo -f/u am phosphorous #Muscle pain -Pt intermittently complaining of muscle pain, in different locations -Tylenol 650mg PO Q6 scheduled -Physical therapy eval and treat placed today. Pt agreeable to participate #DM -Endocrinology Consult (Dr Mann) appreciated- pt may have glucose impairment, but intermittent hypoglycemic episodes prompted cessation of Prandin and no further hypoglycemia -Hga1c= 5.7 on 08/19. POCG wnl. Insulin, ISS, hypoglycemic protocol, and Accuchecks d/c'd for now. Will reassess in 2 weeks DVT Prophylaxis: -SC Heparin. Pt refusing heparin. Ambulating. BL LE doppler negative for DVT ()
[2017-09-15] MEDS ORDERED: Sod Polystyrene Sulf 15 gm/60 ml Susp PO ONE (10:48)
--- NOTE | 2017-09-15 10:53 | CARD ---
APPROVED REPORT EKG Measurement Heart [id number] <Conclusion> Sinus rhythm with 1st degree AV block Possible Left atrial enlargement Prolonged QT Abnormal ECG
--- NOTE | 2017-09-15 20:52 | PN ---
ENDOCRINOLOGY FOLLOWUP NOTE DATE: LOCATION: In room 661 SUBJECTIVE: This is a 67-year-old male with known history of hypothyroidism and tolerating a low-dose levothyroxine replacement therapy as given. His glycemic profile has remained near optimal and does not require any kind of oral hypoglycemic therapy as noted. So, at this time, we will continue the levothyroxine given as 50 mcg once daily as ordered and we will recommend serial thyroid studies to be done every 4 to 6 weeks if the patient is discharged from the hospital for dose adjustments thereof. We will sign off from the endocrine care of the patient at this time. Bettina Mann MD
[2017-09-16] MEDS: Albuterol-Ipratrop 3 mg / 0.5 (3 ml) UD INH SCH ×6 (03:56→23:14)
[2017-09-16] MEDS: Levothyroxine 50 MCG TAB PO SCH (06:02)
[2017-09-16 06:41] LABS: HEMOGLOBIN 8.8 g/dL (12.0-18.0); MEAN CELL VOLUME 87.9 fl (80.0-94.0); MEAN CORPUSCULAR HEMOGLOBIN 28.4 pg (27.0-31.0); MEAN CORPUSCULAR HGB CONC 32.3 g/dL (33.0-37.0); RBC 3.12 Mil/uL (4.40-5.90); RED CELL DISTRIBUTION WIDTH 17.7 % (11.5-14.5); WHITE BLOOD COUNT 8.8 K/uL (4.8-10.8)
[2017-09-16 06:43] LABS: CALCIUM 7.8 mg/dL (8.4-10.2)
[2017-09-16] MEDS: diltiaZEM 180 mg/24 Hours CD Cap PO SCH (09:28)
[2017-09-16] MEDS: Ergocalciferol 50,000 Intl Units Cap PO SCH (09:29)
[2017-09-16] MEDS: levETIRAcetam 100 mg/ml (5ml) Oral Syringe PO SCH ×2 (09:30→17:04)
[2017-09-16] MEDS: Vancomycin 500 mg (Oral/Rectal USE) PO SCH ×4 (09:33→21:40)
[2017-09-16] MEDS: Epoetin Alfa 4000 UNIT/ML Inj SC SCH ×2 (09:34→15:51)
[2017-09-16] MEDS ORDERED: Sod Polystyrene Sulf 15 gm/60 ml Susp PO ONE (09:53)
--- NOTE | 2017-09-16 12:19 | CP.PCM.PN ---
Subjective - Date & Time of Evaluation Date of Evaluation: 09/16/17 Time of Evaluation: 09:00 - Subjective Subjective: Pt seen and examined at the bedside. Resting comfortably. Complained of right lower leg pain. Tolerating diet. Objective - Vital Signs/Intake and Output Vital Signs (last 24 hours): Temp Pulse Resp BP Pulse Ox 97.8 F 79 20 149/64 95 09/16/17 07:51 09/16/17 09:31 09/16/17 07:51 09/16/17 09:31 09/16/17 07:51 Intake and Output: 09/16/17 09/16/17 06:59 18:59 Output Total 1 Balance -1 - Medications Medications: Current Medications Acetaminophen (Tylenol 325mg Tab) 650 mg PO Q6 [facility] Last Admin: 09/16/17 09:37 Dose: 650 mg Albuterol/Ipratropium (Duoneb 3 Mg/0.5 Mg (3 Ml) Ud) 3 ml INH RQ4 [facility] Last Admin: 09/16/17 11:11 Dose: 3 ml Amlodipine Besylate (Norvasc) 10 mg PO DAILY [facility] Last Admin: 09/16/17 09:31 Dose: 10 mg Bumetanide (Bumex) 1 mg PO Q8@0100,0900,1700 [facility] Last Admin: 09/16/17 09:28 Dose: 1 mg Calcitriol (Rocaltrol) 0.25 mcg PO FRI [facility] Last Admin: 09/12/17 10:25 Dose: 0.25 mcg Calcium Acetate (Phoslo) 667 mg PO WM [facility] Last Admin: 09/16/17 09:32 Dose: 667 mg Diltiazem HCl (Cardizem Cd) 360 mg PO DAILY [facility] Last Admin: 09/16/17 09:28 Dose: 360 mg Doxazosin Mesylate (Cardura) 1 mg PO HS [facility] Last Admin: 09/05/17 03:51 Dose: Not Given Epoetin Roel (Procrit) 4,000 unit SC TTS [facility] Last Admin: 09/16/17 09:34 Dose: 4,000 unit Ergocalciferol (Drisdol 50,000 Intl Units Cap) 1 cap PO Q7D [facility] Last Admin: 09/16/17 09:29 Dose: 1 cap Heparin Sodium (Porcine) (Heparin) 5,000 units SC Q8 [facility] PRN Reason: Protocol Last Admin: 09/16/17 09:29 Dose: Not Given Hydralazine HCl (Apresoline) 100 mg PO Q8H [facility] Last Admin: 09/16/17 06:02 Dose: 100 mg Lactic Acid (Lac-Hydrin 12% Lotion (225 G)) 1 applic TOP TID [facility] Last Admin: 09/16/17 09:31 Dose: 1 applic Levetiracetam (Keppra) 500 mg PO BID [facility] Last Admin: 09/16/17 09:30 Dose: 500 mg Levothyroxine Sodium (Synthroid) 50 mcg PO DAILY@0630 [facility] Last Admin: 09/16/17 06:02 Dose: 50 mcg Lidocaine (Lidoderm) 1 ea TD DAILY [facility] Losartan Potassium (Cozaar) 50 mg PO DAILY [facility] Last Admin: 08/23/17 09:36 Dose: 50 mg Mirtazapine (Remeron) 30 mg PO HS [facility] Last Admin: 09/15/17 23:10 Dose: 30 mg Pregabalin (Lyrica) 75 mg PO QPM [facility] Last Admin: 09/15/17 17:16 Dose: 75 mg Vancomycin HCl (Vancocin (Oral/Rectal Use)) 125 mg PO QID [facility] PRN Reason: Protocol Last Admin: 09/16/17 09:33 Dose: 125 mg - Labs Labs: 09/16/17 05:45 09/16/17 05:45 PT 15.3 Seconds (9.8-13.1) H 07/18/17 05:30 INR 1.4 (0.9-1.2) H 07/18/17 05:30 APTT 34.2 Seconds (25.6-37.1) 07/18/17 05:30 - Constitutional Appears: Non-toxic, No Acute Distress, Cachectic, Chronically Ill - Head Exam Head Exam: NORMAL INSPECTION - Eye Exam Eye Exam: Normal appearance - ENT Exam ENT Exam: Mucous Membranes Moist - Respiratory Exam Respiratory Exam: Chest Wall Tenderness, Rales (left lwoer lung base). absent: Wheezes - Cardiovascular Exam Cardiovascular Exam: REGULAR RHYTHM, +S1, +S2. absent: Murmur - GI/Abdominal Exam GI & Abdominal Exam: Soft, Normal Bowel Sounds. absent: Distended, Tenderness - Extremities Exam Extremities Exam: Full ROM, Normal Capillary Refill, Normal Inspection. absent : Calf Tenderness, Joint Swelling, Pedal Edema, Tenderness - Neurological Exam Neurological Exam: Alert, Awake, Oriented x3 - Psychiatric Exam Psychiatric exam: Normal Mood - Skin Skin Exam: Normal Color Assessment and Plan - Assessment and Plan (Free Text) Assessment: 67M, homeless, with profound health issues that are currently stabilized with a multitude of medications to include oxygen. He is not medically or financially stable for discharge to home at this time. Currently on treatment for Cdiff, antibiotic day#12. Plan: #C.diff -Clinically improved -C/w Vanco PO day 12 (stop after 14 days) -no fever, white count -continue to monitor #Hyperkalemia -5.1 this morning -c/w scheduled albuterol -Kayexelate 15 today -f/u am BMP -Lisinopril held #Chest wall pain, chronic -Mild, intermittent, +Allodynia. 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 -Continue to re-assess response #HTN -Normotensive overnight. 150's this morning -Astronomy Instructor, Dr. Luz on board. -C/w with antihypertensive regimen #Anemia -Hg, 8.8 today (stable) -Procrit Sc TTHSat, starting today -F/U cbc #CKD -Crea 2.5 today -Secondary to nephrotic syndrome -Nephrology Consult (Dr Luz) greatly appreciated- c/w all recommendations -Avoid nephrotoxic meds -F/U BMP #Chronic Pleural Effusion, stable -repeat Cxray showed stability in size (09/12) -Pt not complaining of respiratory symptoms and o2 sats wnl (1 episode of 02 sat in 91-92 overnight, wnl all day) -Will continue to monitor-Weekly repeat Cxrays* Next Cxray planned for today #Hyperphosphatemia -6.5 -c/w phosplo -f/u am phosphorous #Muscle pain, R Lower leg -Pt intermittently complaining of muscle pain, in different locations -Tylenol 650mg PO Q6 scheduled -Lidocaine patches #DM -Endocrinology Consult (Dr Mann) appreciated- pt may have glucose impairment, but intermittent hypoglycemic episodes prompted cessation of Prandin and no further hypoglycemia -Hga1c= 5.7 on 08/19. POCG wnl. Insulin, ISS, hypoglycemic protocol, and Accuchecks d/c'd for now. Will reassess in 2 weeks DVT Prophylaxis: -SC Heparin. Pt refusing heparin. Ambulating. BL LE doppler negative for DVT ()
[2017-09-16] MEDS: Sod Polystyrene Sulf 15 gm/60 ml Susp PO ONE ×2 (12:29→12:46)
[2017-09-16] MEDS: Lidocaine 5% Patch TD SCH (15:15)
--- NOTE | 2017-09-16 22:44 | CP.PCM.PN ---
Subjective - Date & Time of Evaluation Date of Evaluation: 09/16/17 Time of Evaluation: 20:45 - Subjective Subjective: Patient denies shortness of breath; tolerating diet; not wanting to take kayexalate due increased BM; Objective - Vital Signs/Intake and Output Vital Signs (last 24 hours): Temp Pulse Resp BP Pulse Ox 97.8 F 82 20 142/62 95 09/16/17 15:34 09/16/17 21:41 09/16/17 15:34 09/16/17 21:41 09/16/17 15:34 Intake and Output: 09/16/17 09/17/17 18:59 06:59 Intake Total 300 Balance 300 - Medications Medications: Current Medications Acetaminophen (Tylenol 325mg Tab) 650 mg PO Q6 [facility] Last Admin: 09/16/17 21:41 Dose: 650 mg Albuterol/Ipratropium (Duoneb 3 Mg/0.5 Mg (3 Ml) Ud) 3 ml INH RQ4 [facility] Last Admin: 09/16/17 19:24 Dose: 3 ml Amlodipine Besylate (Norvasc) 10 mg PO DAILY [facility] Last Admin: 09/16/17 09:31 Dose: 10 mg Bumetanide (Bumex) 1 mg PO BID [facility] Calcitriol (Rocaltrol) 0.25 mcg PO FRI [facility] Last Admin: 09/12/17 10:25 Dose: 0.25 mcg Calcium Acetate (Phoslo) 667 mg PO WM [facility] Last Admin: 09/16/17 17:31 Dose: 667 mg Diltiazem HCl (Cardizem Cd) 360 mg PO DAILY [facility] Last Admin: 09/16/17 09:28 Dose: 360 mg Doxazosin Mesylate (Cardura) 1 mg PO HS [facility] Last Admin: 09/05/17 03:51 Dose: Not Given Epoetin Roel (Procrit) 4,000 unit SC MWF [facility] Ergocalciferol (Drisdol 50,000 Intl Units Cap) 1 cap PO Q7D [facility] Last Admin: 09/16/17 09:29 Dose: 1 cap Heparin Sodium (Porcine) (Heparin) 5,000 units SC Q8 [facility] PRN Reason: Protocol Last Admin: 09/16/17 17:03 Dose: Not Given Hydralazine HCl (Apresoline) 100 mg PO Q8H [facility] Last Admin: 09/16/17 21:41 Dose: 100 mg Lactic Acid (Lac-Hydrin 12% Lotion (225 G)) 1 applic TOP TID [facility] Last Admin: 09/16/17 17:04 Dose: 1 applic Levetiracetam (Keppra) 500 mg PO BID [facility] Last Admin: 09/16/17 17:04 Dose: 500 mg Levothyroxine Sodium (Synthroid) 50 mcg PO DAILY@0630 [facility] Last Admin: 09/16/17 06:02 Dose: 50 mcg Lidocaine (Lidoderm) 1 ea TD DAILY [facility] Last Admin: 09/16/17 15:15 Dose: 1 ea Losartan Potassium (Cozaar) 50 mg PO DAILY [facility] Last Admin: 08/23/17 09:36 Dose: 50 mg Mirtazapine (Remeron) 30 mg PO HS [facility] Last Admin: 09/16/17 21:42 Dose: 30 mg Pregabalin (Lyrica) 75 mg PO QPM [facility] Last Admin: 09/16/17 17:24 Dose: 75 mg Vancomycin HCl (Vancocin (Oral/Rectal Use)) 125 mg PO QID [facility] PRN Reason: Protocol Last Admin: 09/16/17 21:40 Dose: 125 mg - Labs Labs: 09/16/17 05:45 09/16/17 05:45 PT 15.3 Seconds (9.8-13.1) H 07/18/17 05:30 INR 1.4 (0.9-1.2) H 07/18/17 05:30 APTT 34.2 Seconds (25.6-37.1) 07/18/17 05:30 - Constitutional Appears: Non-toxic, No Acute Distress, Cachectic - Eye Exam Eye Exam: absent: Scleral icterus - ENT Exam ENT Exam: Mucous Membranes Moist - Respiratory Exam Respiratory Exam: absent: Respiratory Distress Additional comments: decreased breath sounds on L; - Cardiovascular Exam Cardiovascular Exam: RRR, +S1, +S2 - GI/Abdominal Exam GI & Abdominal Exam: Soft. absent: Distended, Tenderness - Exam Exam: absent: Bladder Distension - Extremities Exam Additional comments: no leg edema; - Neurological Exam Neurological Exam: Alert, Awake - Psychiatric Exam Psychiatric exam: absent: Agitated - Skin Skin Exam: Warm. absent: Cyanosis Assessment and Plan (1) Hyperkalemia Assessment & Plan: Persistent but now off lisinopril since today; refusing kayexalate intermittently despite being counseled; will monitor; Status: Acute (2) Malnutrition Status: Acute (3) Hypertensive CKD (chronic kidney disease) Assessment & Plan: BP relatively controlled on current regimen; volume status had been controlled with diuretics and KEVIN blockade but now taken off lisinopril due to hyperkalemia and non-compliance with kayexalate; -will decrease bumex 1 mg back to bid dosing; continue with rest of meds; Status: Acute (4) Chronic kidney disease, stage 3 (moderate) Assessment & Plan: Renal function had worsened lately but likely the effect of being volume depleted from diuretics; should see some improvement in serum creatininie now that off lisinopril; -avoid nephrotoxic agents -continue to maintain adequate glycemic and anti-htn control -needs KEVIN blockade for anti-proteinuric effect but limited by hyperkalemia; Status: Chronic (5) Acute renal failure Status: Resolved (6) Nephrotic syndrome Status: Chronic (7) Pleural effusion Assessment & Plan: Recurrent L sided effusion; recommend to drain intermittently; Status: Chronic (8) Hypothermia Status: Acute (9) Altered mental status Status: Acute (10) SIRS (systemic inflammatory response syndrome) Status: Acute (11) Anemia Assessment & Plan: Hgb dropping, will check iron studies and restart EPO (refused dose today); Status: Chronic (12) Monoclonal gammopathy Status: Chronic (13) Hypernatremia Status: Acute (14) Chronic kidney disease-mineral and bone disorder Assessment & Plan: Ca level dropping in the setting of worsened renal function; checking PTH level monthly; continue ergocalciferol 50,000 u weekly; Status: Chronic
[2017-09-17] MEDS: Albuterol-Ipratrop 3 mg / 0.5 (3 ml) UD INH SCH ×6 (03:30→23:18)
[2017-09-17 06:29] LABS: HEMOGLOBIN 8.5 g/dL (12.0-18.0); MEAN CELL VOLUME 88.9 fl (80.0-94.0); MEAN CORPUSCULAR HEMOGLOBIN 27.4 pg (27.0-31.0); MEAN CORPUSCULAR HGB CONC 30.9 g/dL (33.0-37.0); RBC 3.12 Mil/uL (4.40-5.90); RED CELL DISTRIBUTION WIDTH 18.2 % (11.5-14.5); WHITE BLOOD COUNT 11.9 K/uL (4.8-10.8)
[2017-09-17] MEDS: Levothyroxine 50 MCG TAB PO SCH (06:36)
[2017-09-17 07:38] LABS: CALCIUM 8.2 mg/dL (8.4-10.2)
--- NOTE | 2017-09-17 08:21 | CP.PCM.PN ---
Subjective - Date & Time of Evaluation Date of Evaluation: 09/17/17 Time of Evaluation: 08:00 - Subjective Subjective: Overnight, pt O2 sat dropped to low 80's as per RN. Pt was not dyspnic and did not have any respiratory complaints. Pt was placed on Nasal cannula and eventually upgraded to a face mask which improved his O2 sat. RN also endorsed 2 sites of bleeding near superficial veins that were seen yesterday. Pt was seen this am sitting comfortably with face mask in place. Pt denied shortness of breath. Reported left sided chest pain that was pleuritic and reproducible to palpation. Complains of LE pain BL. Pt is tolerating diet, good appetite (asked for breakfast this morning). No dysuria. Objective - Vital Signs/Intake and Output Vital Signs (last 24 hours): Temp Pulse Resp BP Pulse Ox 98.1 F 80 20 146/66 92 L 09/17/17 08:12 09/17/17 08:12 09/17/17 08:12 09/17/17 08:12 09/17/17 08:12 Intake and Output: 09/17/17 09/17/17 06:59 18:59 Output Total 450 Balance -450 - Medications Medications: Current Medications Acetaminophen (Tylenol 325mg Tab) 650 mg PO Q6 [facility] Last Admin: 09/17/17 04:09 Dose: 650 mg Albuterol/Ipratropium (Duoneb 3 Mg/0.5 Mg (3 Ml) Ud) 3 ml INH RQ4 [facility] Last Admin: 09/17/17 07:41 Dose: 3 ml Amlodipine Besylate (Norvasc) 10 mg PO DAILY [facility] Last Admin: 09/16/17 09:31 Dose: 10 mg Bumetanide (Bumex) 1 mg PO BID [facility] Calcitriol (Rocaltrol) 0.25 mcg PO FRI [facility] Last Admin: 09/12/17 10:25 Dose: 0.25 mcg Calcium Acetate (Phoslo) 667 mg PO WM [facility] Last Admin: 09/16/17 17:31 Dose: 667 mg Diltiazem HCl (Cardizem Cd) 360 mg PO DAILY [facility] Last Admin: 09/16/17 09:28 Dose: 360 mg Doxazosin Mesylate (Cardura) 1 mg PO HS [facility] Last Admin: 09/05/17 03:51 Dose: Not Given Epoetin Roel (Procrit) 4,000 unit SC MWF [facility] Ergocalciferol (Drisdol 50,000 Intl Units Cap) 1 cap PO Q7D [facility] Last Admin: 09/16/17 09:29 Dose: 1 cap Heparin Sodium (Porcine) (Heparin) 5,000 units SC Q8 [facility] PRN Reason: Protocol Last Admin: 09/17/17 01:34 Dose: 5,000 units Hydralazine HCl (Apresoline) 100 mg PO Q8H [facility] Last Admin: 09/17/17 06:36 Dose: 100 mg Lactic Acid (Lac-Hydrin 12% Lotion (225 G)) 1 applic TOP TID [facility] Last Admin: 09/16/17 17:04 Dose: 1 applic Levetiracetam (Keppra) 500 mg PO BID [facility] Last Admin: 09/16/17 17:04 Dose: 500 mg Levothyroxine Sodium (Synthroid) 50 mcg PO DAILY@0630 [facility] Last Admin: 09/17/17 06:36 Dose: 50 mcg Lidocaine (Lidoderm) 1 ea TD DAILY [facility] Last Admin: 09/16/17 15:15 Dose: 1 ea Losartan Potassium (Cozaar) 50 mg PO DAILY [facility] Last Admin: 08/23/17 09:36 Dose: 50 mg Mirtazapine (Remeron) 30 mg PO HS [facility] Last Admin: 09/16/17 21:42 Dose: 30 mg Pregabalin (Lyrica) 75 mg PO QPM [facility] Last Admin: 09/16/17 17:24 Dose: 75 mg Vancomycin HCl (Vancocin (Oral/Rectal Use)) 125 mg PO QID [facility] PRN Reason: Protocol Last Admin: 09/16/17 21:40 Dose: 125 mg - Labs Labs: 09/17/17 05:55 09/17/17 05:55 PT 15.3 Seconds (9.8-13.1) H 07/18/17 05:30 INR 1.4 (0.9-1.2) H 07/18/17 05:30 APTT 34.2 Seconds (25.6-37.1) 07/18/17 05:30 - Constitutional Appears: Non-toxic, No Acute Distress, Cachectic, Chronically Ill - Head Exam Head Exam: NORMAL INSPECTION - Eye Exam Eye Exam: Normal appearance - ENT Exam ENT Exam: Mucous Membranes Moist - Neck Exam Neck Exam: Normal Inspection - Respiratory Exam Respiratory Exam: Chest Wall Tenderness (Left upper lobes), Decreased Breath Sounds, Rales (Left upper lobe rales appreciated. Reduced breath sounds BL). absent: Accessory Muscle Use, Wheezes, Respiratory Distress - Cardiovascular Exam Cardiovascular Exam: REGULAR RHYTHM, +S1, +S2. absent: Murmur - GI/Abdominal Exam GI & Abdominal Exam: Soft. absent: Tenderness - Skin Additional comments: Right forearm, ruptured blister with minimal bleeding. Left medial arm, bleeding skin abrasion with minimal bleeding. Left triple lumen cathther in place. No erythema or tenderness. Assessment and Plan - Assessment and Plan (Free Text) Assessment: 67M, homeless, with profound health issues that are currently stabilized with a multitude of medications to include oxygen. He is not medically or financially stable for discharge to home at this time. Currently on treatment for Cdiff, antibiotic day#13. Chronic pleural effusion shown to be worsening today. Plan: IR guided thoracentesis order placed for pleural effusions. Lasix IV. F/U Cxray after procedure. Plan for Picc tomorrow. INR in am. Plan: #Chronic Pleural Effusion, worsening -Pt not complaining of respiratory symptoms but had 1 episode of hypoxia overnight. -Repeat Cxray from today showed increase in BL pleural effusions, See report -Will continue to monitor-Weekly repeat Cxrays* -Lasiv 40mg IV x1 -NC 3 L, keep O2 sat 90-94% #C.diff -Clinically improved -C/w Vanco PO day 13 (stop after 14 days) -no fever, white count -continue to monitor #Hyperkalemia -5.2 this morning -c/w scheduled albuterol -Kayexelate 15 today- pt refused yesterdays Kayexalte -f/u am BMP -Lisinopril held #Chest wall pain, chronic -Mild, intermittent, +Allodynia. 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 -Curb Setter Helper, Dr. Luz on board. -C/w with antihypertensive regimen #CKD -Crea 2.5 today -Secondary to nephrotic syndrome -Nephrology Consult (Dr Luz) greatly appreciated- c/w all recommendations -Avoid nephrotoxic meds -F/U BMP #Hyperphosphatemia -8.3 -Increase Phosphlo dosage to 2 tablets with meals -f/u am phosphorous #Muscle pain, R Lower leg -Pt intermittently complaining of muscle pain, in different locations -Lidocaine patches -Oral morphine sched q6 #DM -Endocrinology Consult (Dr Mann) appreciated- pt may have glucose impairment, but intermittent hypoglycemic episodes prompted cessation of Prandin and no further hypoglycemia -Hga1c= 5.7 on 08/19. POCG wnl. Insulin, ISS, hypoglycemic protocol, and Accuchecks d/c'd for now. Will reassess in 2 weeks DVT Prophylaxis: -SC Heparin. Pt refusing heparin. Ambulating. BL LE doppler negative for DVT () -
--- NOTE | 2017-09-17 08:50 | RAD ---
HISTORY: dyspnea COMPARISON: 09/12/2017 FINDINGS: LUNGS: Left basal dense opacification. Interval increased hazy opacification right lung base PLEURA: The prior moderate left pleural effusion has further increased in size. Compressive atelectasis here inferred. Additional concomitant underlying pathology not excluded. Interval right pleural effusion. Probable mild minimal compressive atelectasis here. CARDIOVASCULAR: Mild cardiomegaly. Central pulmonary venous congestion increased since prior exam OSSEOUS STRUCTURES: No significant abnormalities. VISUALIZED UPPER ABDOMEN: Normal. OTHER FINDINGS: Left-sided PICC line similar in position IMPRESSION: Interval increasing bilateral pleural effusions. Concomitant compressive atelectasis inferred left much more than right
[2017-09-17] MEDS: Lidocaine 5% Patch TD SCH (08:58)
[2017-09-17] MEDS: levETIRAcetam 100 mg/ml (5ml) Oral Syringe PO SCH ×2 (08:59→18:25)
[2017-09-17] MEDS: diltiaZEM 180 mg/24 Hours CD Cap PO SCH (09:00)
[2017-09-17] MEDS ORDERED: Epoetin Alfa 4000 UNIT/ML Inj SC SCH (09:00)
[2017-09-17] MEDS: Vancomycin 500 mg (Oral/Rectal USE) PO SCH ×3 (09:05→16:41)
[2017-09-17] MEDS: Morphine 15 mg Immediate Release Tab PO SCH ×2 (10:23→16:25)
--- NOTE | 2017-09-17 23:47 | CP.PCM.PCO ---
Addendum Addendum: 09/17/17 23:32 CC: called by nurse for desaturation to high 80s/low 90s on high flow at 10L. States patient appeared 'out of it', kept taking his mask off Respiratory was paged and bedside when I arrived to examine the patient. Patient was on high flow at 20L with O2 sat of 95%, receiving scheduled duoneb treatment States he is having some difficulty breathing, no chest pain. Gen: cachectic male, lying in bed in mild respiratory distress, but awake, alert and responding appropriately to questions. Cardio: +murmur, S1S2+ Lungs: right lung culver clear to auscultation anteriorly/posterior. left lung absent breath sounds throughout, anteriorly and posteriorly. Abd: no distention/tenderness Ext: no pedal edema. A/P : 67 year old male with multiple comorbidities with acute desaturation likely 2' to worsening left sided pleural effusion. Patient had been desaturating throughout the day today, and is for possible thoracentesis with IR tomorrow. Patients O2 sat improved with increase in high flow. Given this increased requirement on FIO2 on high flow, will transfer the patient to telemetry for closer monitoring. Chest XR to reevaluate effusion Encouraged patient to leave mask in place, discussed the plan with him. [place] PGY 2
[2017-09-18] MEDS: Morphine 15 mg Immediate Release Tab PO SCH ×5 (00:08→22:17)
[2017-09-18] MEDS: Vancomycin 500 mg (Oral/Rectal USE) PO SCH ×5 (00:08→22:18)
[2017-09-18 00:44] LABS: ABG ALLEN TEST YES; ARTERIAL BLOOD GAS HCO3 27.4 mmol/L (21-28); ARTERIAL BLOOD GAS O2 CAPACITY 16.5 mL/dL (16-24); ARTERIAL BLOOD GAS O2 CONTENT 15.9 ML/dL (15-23); ARTERIAL BLOOD GAS O2 SAT 96.4 % (95-98); ARTERIAL BLOOD GAS PCO2 41 mm/Hg (35-45); ARTERIAL BLOOD GAS PH 7.44 (7.35-7.45); ARTERIAL BLOOD GAS PO2 69 mm/Hg (80-100); ARTERIAL BLOOD GAS TCO2 29.1 mmol/L (22-28)
--- NOTE | 2017-09-18 02:33 | PCM.RRT ---
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 Nurse reported that O2 Sat was 80%. O: -Vital Signs: O2 Sat 92%; BP 118/71; HR 94 -Physical Exam: > Gen: Pt awake, alert, not in acute distress, resting on bed, responsive to stimulation and verbal. > HEENT: Head atraumatic, normocephalic, oropharynx with moist mucous membranes. > CV: S1 S2 present > Lungs: Markedly decreased breath sound on L lung culver. > EXT: No cyanosis. GIS SOFTWARE ENGINEER Interventions: --ABG ordered. --Optimized O2 flow by nasal cannula. --Sat O2 increased to 97 %. --Pt stable, awake and alert, not in acute distress. --Primary team made aware of GIS SOFTWARE ENGINEER. A/P 67 y/o M with a PMHx of HTN, DM, CKD and multiple health issues was admitted for sepsis, presented oxygen desaturation. --F/u ABG, and already ordered CXR. --High Flow Oxygen ordered --Transfer to Telemetry. --Monitor Vital signs. GIS SOFTWARE ENGINEER End: 00:39 GIS SOFTWARE ENGINEER Leader: Dr Chaves, hospitalist chronometer assembler and adjuster. GIS SOFTWARE ENGINEER Residents: Dr Magana PGY-2, Dr Cosme PGY-1. <Santana Chaves - Last Filed: 09/18/17 06:10> GIS SOFTWARE ENGINEER Nurse Assessment - Vital Signs Vital Signs: Rapid Response Vital Sign Blood Pressure 137/64 Pulse Rate 94 Respiratory Rate 21 Temperature 98.8 F Oxygen Saturation 96 - Vital Signs at end of GIS SOFTWARE ENGINEER Vital Signs at end of GIS SOFTWARE ENGINEER: Rapid Response End Vital Sign Blood Pressure 146/65 Pulse Rate 96 Respiratory Rate 22 Temperature 98.8 F O2 Sat by Pulse Oximetry 94
[2017-09-18] MEDS: Albuterol-Ipratrop 3 mg / 0.5 (3 ml) UD INH SCH ×5 (04:38→19:29)
[2017-09-18] MEDS: Levothyroxine 50 MCG TAB PO SCH (05:33)
[2017-09-18 05:35] LABS: HEMOGLOBIN 9.3 g/dL (12.0-18.0); MEAN CELL VOLUME 88.7 fl (80.0-94.0); MEAN CORPUSCULAR HGB CONC 31.6 g/dL (33.0-37.0); RBC 3.3 Mil/uL (4.40-5.90); RED CELL DISTRIBUTION WIDTH 18.4 % (11.5-14.5); WHITE BLOOD COUNT 9.5 K/uL (4.8-10.8)
[2017-09-18 05:40] LABS: CALCIUM 8.6 mg/dL (8.4-10.2)
[2017-09-18 06:30] LABS: INR 1.1 (0.9-1.2); PROTHROMBIN TIME 11.7 Seconds (9.8-13.1)
--- NOTE | 2017-09-18 08:17 | RAD ---
HISTORY: reeval pleural effusion, desaturation COMPARISON: 09/17/2017 FINDINGS: LUNGS: No active pulmonary disease. PLEURA: Interval complete opacification left hemithorax - interval further increased left pleural effusion with inferred left compressive atelectasis. Additional concomitant underlying pathology not excluded. Hazy opacity right lung base compatible with right pleural fluid layering and concomitant atelectasis and or infiltrate. CARDIOVASCULAR: Left heart border obscured OSSEOUS STRUCTURES: No significant abnormalities. VISUALIZED UPPER ABDOMEN: Normal. OTHER FINDINGS: Left-sided PICC line similar to slightly more advanced position estimated tip in superior vena cava. IMPRESSION: Interval opacification left scott thorax. Additional interval increased pleural effusion with compressive atelectasis inferred. Right basal pleural-parenchymal opacity -right pleural fluid with atelectasis and/or infiltrate here - similar
[2017-09-18] MEDS: levETIRAcetam 100 mg/ml (5ml) Oral Syringe PO SCH ×2 (08:48→17:35)
[2017-09-18] MEDS ORDERED: diltiaZEM 180 mg/24 Hours CD Cap PO SCH (09:00)
[2017-09-18] MEDS ORDERED: Lidocaine 5% Patch TD SCH (09:00)
--- NOTE | 2017-09-18 10:34 | RAD ---
HISTORY: Worsening Pleural Effusion COMPARISON: Portable chest 09/18/2017. FINDINGS: LUNGS: Left central venous line unchanged in position. Marked airspace disease at the left lung is again suggested with limited patchy atelectasis or infiltrate again seen the right base. PLEURA: Trace right pleural effusion remains with complete opacification left hemithorax persisting. Attenuation is quite sharp at the distal left mainstem bronchus and the pattern may be a combination of postobstructive atelectasis and left pleural effusion. CARDIOVASCULAR: No definite right-sided pulmonary vascular derangement. Left heart border and vasculature are obscured by a left hemithorax opacification. OSSEOUS STRUCTURES: No significant abnormalities. VISUALIZED UPPER ABDOMEN: Normal. OTHER FINDINGS: None. IMPRESSION: No signal change in probable combination of postobstructive atelectasis and large left pleural effusion as well as limited patchy density at the right base and trace right pleural effusion. No pneumothorax bilaterally. No active disease.
--- NOTE | 2017-09-18 12:42 | CP.PCM.PN ---
Subjective - Date & Time of Evaluation Date of Evaluation: 09/18/17 Time of Evaluation: 08:00 - Subjective Subjective: Overnight, rapid response called by RN because pt O2 sat noted to be in low 80' s. Cxray remarkable for complete opacification of lungs. Pt started on Bipap and transferred to ICU. Seen this am. On High flow. Pt ws alert and responsive to questioning. Stated his breathing was "okay." Objective - Vital Signs/Intake and Output Vital Signs (last 24 hours): Temp Pulse Resp BP Pulse Ox 98.5 F 84 26 H 121/61 97 09/18/17 12:00 09/18/17 12:00 09/18/17 12:00 09/18/17 12:00 09/18/17 12:00 - Medications Medications: Current Medications Albuterol/Ipratropium (Duoneb 3 Mg/0.5 Mg (3 Ml) Ud) 3 ml INH RQ4 [facility] Last Admin: 09/18/17 11:10 Dose: 3 ml Amlodipine Besylate (Norvasc) 10 mg PO DAILY [facility] Last Admin: 09/18/17 09:12 Dose: 10 mg Bumetanide (Bumex) 1 mg PO BID [facility] Last Admin: 09/18/17 11:33 Dose: 1 mg Calcitriol (Rocaltrol) 0.25 mcg PO FRI [facility] Calcium Acetate (Phoslo) 1,334 mg PO WM [facility] Last Admin: 09/18/17 11:34 Dose: 1,334 mg Diltiazem HCl (Cardizem Cd) 360 mg PO DAILY [facility] Last Admin: 09/18/17 08:48 Dose: 360 mg Doxazosin Mesylate (Cardura) 1 mg PO HS [facility] Epoetin Roel (Procrit) 4,000 unit SC MWF [facility] Ergocalciferol (Drisdol 50,000 Intl Units Cap) 1 cap PO Q7D [facility] Heparin Sodium (Porcine) (Heparin) 5,000 units SC Q8 [facility] PRN Reason: Protocol Last Admin: 09/18/17 01:43 Dose: Not Given Hydralazine HCl (Apresoline) 100 mg PO Q8 [facility] Last Admin: 09/18/17 08:54 Dose: 100 mg Lactic Acid (Lac-Hydrin 12% Lotion (225 G)) 1 applic TOP TID [facility] Last Admin: 09/18/17 08:47 Dose: 1 applic Levetiracetam (Keppra) 500 mg PO BID [facility] Last Admin: 09/18/17 08:48 Dose: 500 mg Levothyroxine Sodium (Synthroid) 50 mcg PO DAILY@0630 [facility] Last Admin: 09/18/17 05:33 Dose: 50 mcg Lidocaine (Lidoderm) 1 ea TD DAILY [facility] Last Admin: 09/18/17 08:49 Dose: 1 ea Losartan Potassium (Cozaar) 50 mg PO DAILY [facility] Mirtazapine (Remeron) 30 mg PO HS [facility] Morphine Sulfate (Morphine Immediate Release Tab) 15 mg PO Q6 [facility] Last Admin: 09/18/17 04:46 Dose: 15 mg Vancomycin HCl (Vancocin (Oral/Rectal Use)) 125 mg PO QID [facility] PRN Reason: Protocol Last Admin: 09/18/17 08:55 Dose: 125 mg - Labs Labs: 09/18/17 04:25 09/18/17 04:25 PT 11.7 Seconds (9.8-13.1) 09/18/17 04:25 INR 1.1 (0.9-1.2) 09/18/17 04:25 APTT 34.2 Seconds (25.6-37.1) 07/18/17 05:30 - Constitutional Appears: Non-toxic (On high flow NC), No Acute Distress, Cachectic, Chronically Ill - Head Exam Head Exam: NORMAL INSPECTION - Eye Exam Eye Exam: Normal appearance - ENT Exam ENT Exam: Mucous Membranes Moist - Respiratory Exam Respiratory Exam: Decreased Breath Sounds (Markedly reduced breath sounds on left side, Left lower base rales appreciated. ), Rales. absent: Rhonchi, Wheezes - Cardiovascular Exam Cardiovascular Exam: REGULAR RHYTHM, +S1, +S2. absent: Murmur - GI/Abdominal Exam GI & Abdominal Exam: Soft, Normal Bowel Sounds. absent: Distended, Tenderness - Extremities Exam Extremities Exam: Full ROM. absent: Pedal Edema Assessment and Plan - Assessment and Plan (Free Text) Assessment: Assessment: 67M, homeless, with profound health issues that are currently stabilized with a multitude of medications to include oxygen. He is not medically or financially stable for discharge to home at this time. Currently on treatment for Cdiff, antibiotic day#13. Chronic pleural effusion shown to be worsening today. Plan: For IR guided thoracentesis or chest tube placement today (spoke with IR, Dr. Cheung). Chest physiotherapy q 1hr. F/U Cxray in the afternoon. Plan for Picc today. Plan: #Hypoxic respiratory failure 2/2 to worsening BL peural effusions -Pt O2 sat 80's overnight + dyspnic -Comfortable today on high flow O2 -Repeat Cxray from today showed full opacification of left lung with increased right pleural effusion, See report -C/w High flow O2 -Chest physiotherapy q 1hr -F/u repeat Cxray in afternoon #C.diff -Clinically improved -C/w Vanco PO day 14, will d/c after today -no fever, white count -continue to monitor #Hyperkalemia -5.5 this morning -c/w scheduled albuterol -Kayexelate 15 today- pt refused yesterday -f/u am BMP -Lisinopril held #Chest wall pain, chronic -Mild, intermittent, +Allodynia. 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 -Automobile Body Repairer, Dr. Luz on board. -C/w with antihypertensive regimen #CKD -Crea 2.4 today -Secondary to nephrotic syndrome -Nephrology Consult (Dr Luz) greatly appreciated- c/w all recommendations -Avoid nephrotoxic meds -F/U BMP #Hyperphosphatemia -8.3 -Increase Phosphlo dosage to 2 tablets with meals -f/u am phosphorous #Muscle pain, R Lower leg -Pt intermittently complaining of muscle pain, in different locations -Lidocaine patches -Oral morphine sched q6 #DM -Endocrinology Consult (Dr Mann) appreciated- pt may have glucose impairment, but intermittent hypoglycemic episodes prompted cessation of Prandin and no further hypoglycemia -Hga1c= 5.7 on 08/19. POCG wnl. Insulin, ISS, hypoglycemic protocol, and Accuchecks d/c'd for now. Will reassess in 2 weeks DVT Prophylaxis: -SC Heparin. Pt refusing heparin. Ambulating. BL LE doppler negative for DVT ()
[2017-09-18] MEDS ORDERED: Lidocaine 1% Inj (20ml) ONE (14:04)
--- NOTE | 2017-09-18 14:39 | CP.PCM.PCO ---
Addendum Addendum: Patient was transferred to ICU post COOPERER evaluation for respiratory distress and found to have complete opacification of the left hemithorax. Patient exhibits Dementia; and currently there is no family available nor does the patient exhibit any sound decision-making capacity to make an informed decision and to give consent for these procedures which now include thoracentesis and PICC line placement by the interventional radiologist. As one of the physicians in the intensive care unit assisting in his care; and to uphold the patients best interests and to provide a standard of care for this patient; I am in agreement with Dr. Kelley, to provide consent for this patient on his behalf.
--- NOTE | 2017-09-18 14:49 | PCM.SURG1 ---
Surgeon's Initial Post Op Note - Surgeon's Notes Surgeon: Antonio Rebolledo MD Junior Web Designer: NONE Type of Anesthesia: Local Pre-Operative Diagnosis: Pleural effusion, respiratory difficulty, infection Operative Findings: US showed large left pleural effusion. US showed patent left basilic vein. Post-Operative Diagnosis: Pleural effusion, respiratory difficulty, infection Operation Performed: US guided left pleural drainage catheter placement for symptomatic left pleural effusion. Single lumen picc placement left basilic vein, 37 cm. Tip of picc is in the SVC. Specimen/Specimens Removed: none Estimated Blood Loss: EBL {In ML}: 3 Blood Products Given: N/A Drains Used: No Drains Post-Op Condition: Fair Date of Surgery/Procedure: 09/18/17 Time of Surgery/Procedure: 14:45
--- NOTE | 2017-09-18 16:07 | RAD ---
HISTORY: Worsening pleural effusion COMPARISON: Portable chest 09/18/2017 6:30 a.m.. FINDINGS: Left-sided opacity is markedly diminished status post prior thoracentesis in the interval. Residual opacity at the left base likely reflects mild residual left pleural effusion with underlying atelectasis or infiltrate not excluded. Mild right pleural effusion is borderline increased. Limited right basilar atelectasis or infiltrate is in question once again and overall appearance of the right base is not significantly changed. No pneumothorax bilaterally. Left central venous line apparently replaced by left upper extremity PICC with tip terminating at the distal superior vena cava. CARDIOVASCULAR: Cardiomegaly evident. No definite pulmonary vascular derangement. OSSEOUS STRUCTURES: No significant abnormalities. VISUALIZED UPPER ABDOMEN: Left nephrostomy or other drainage catheter identified in the left upper quadrant/ flank abdomen. OTHER FINDINGS: None. IMPRESSION: Significant improvement in aeration of left lung status post left thoracentesis with [id number] left pleural fluid residual noted. No pneumothorax bilaterally. Underlying airspace disease not excluded the left base and is stable and remains mild at the right base. Minimal increased right pleural effusion. Left PICC replaces left central venous line as described above. Incidental left nephrostomy or peritoneal drainage catheter noted left upper quadrant abdomen.
--- NOTE | 2017-09-18 18:31 | CP.PCM.PCO ---
Physician Communication Note - Physician Communication Note Physician Communication Note: Patient now has PICC line, triple lumen catheter was removed.
[2017-09-18 20:05] LABS: IRON 34 ug/dL (49-181)
[2017-09-18 20:15] LABS: % IRON SATURATION 16 % (20-55); TOTAL IRON BINDING CAPACITY 215 ug/dL (250-450)
--- NOTE | 2017-09-18 20:48 | CP.PCM.PN ---
Subjective - Date & Time of Evaluation Date of Evaluation: 09/18/17 Time of Evaluation: 12:45 - Subjective Subjective: Patient transferred to tele/ICU due to hypoxia, found to have large L pleural effusion; subsequently underwent placement of L pleural catheter by IR; Objective - Vital Signs/Intake and Output Vital Signs (last 24 hours): Temp Pulse Resp BP Pulse Ox 98.8 F 76 17 129/65 100 09/18/17 16:41 09/18/17 18:40 09/18/17 19:49 09/18/17 18:40 09/18/17 18:40 Intake and Output: 09/18/17 09/19/17 18:59 06:59 Intake Total 600 Output Total 1340 Balance -740 - Medications Medications: Current Medications Albuterol/Ipratropium (Duoneb 3 Mg/0.5 Mg (3 Ml) Ud) 3 ml INH RQ4 [facility] Last Admin: 09/18/17 19:29 Dose: 3 ml Amlodipine Besylate (Norvasc) 10 mg PO DAILY [facility] Last Admin: 09/18/17 09:12 Dose: 10 mg Bumetanide (Bumex) 1 mg PO BID [facility] Last Admin: 09/18/17 17:33 Dose: 1 mg Calcitriol (Rocaltrol) 0.25 mcg PO FRI [facility] Calcium Acetate (Phoslo) 1,334 mg PO WM [facility] Last Admin: 09/18/17 17:37 Dose: 1,334 mg Diltiazem HCl (Cardizem Cd) 360 mg PO DAILY [facility] Last Admin: 09/18/17 08:48 Dose: 360 mg Doxazosin Mesylate (Cardura) 1 mg PO HS [facility] Epoetin Roel (Procrit) 4,000 unit SC MWF [facility] Ergocalciferol (Drisdol 50,000 Intl Units Cap) 1 cap PO Q7D [facility] Heparin Sodium (Porcine) (Heparin) 5,000 units SC Q8 [facility] PRN Reason: Protocol Last Admin: 09/18/17 01:43 Dose: Not Given Hydralazine HCl (Apresoline) 100 mg PO Q8 [facility] Last Admin: 09/18/17 17:34 Dose: 100 mg Lactic Acid (Lac-Hydrin 12% Lotion (225 G)) 1 applic TOP TID [facility] Last Admin: 09/18/17 17:36 Dose: 1 applic Levetiracetam (Keppra) 500 mg PO BID [facility] Last Admin: 09/18/17 17:35 Dose: 500 mg Levothyroxine Sodium (Synthroid) 50 mcg PO DAILY@0630 [facility] Last Admin: 09/18/17 05:33 Dose: 50 mcg Lidocaine (Lidoderm) 1 ea TD DAILY [facility] Last Admin: 09/18/17 08:49 Dose: 1 ea Losartan Potassium (Cozaar) 50 mg PO DAILY [facility] Mirtazapine (Remeron) 30 mg PO HS [facility] Morphine Sulfate (Morphine Immediate Release Tab) 15 mg PO Q6 [facility] Last Admin: 09/18/17 17:36 Dose: Not Given Vancomycin HCl (Vancocin (Oral/Rectal Use)) 125 mg PO QID [facility] PRN Reason: Protocol Last Admin: 09/18/17 17:33 Dose: 125 mg - Labs Labs: 09/18/17 04:25 09/18/17 04:25 PT 11.7 Seconds (9.8-13.1) 09/18/17 04:25 INR 1.1 (0.9-1.2) 09/18/17 04:25 APTT 34.2 Seconds (25.6-37.1) 07/18/17 05:30 - Constitutional Appears: Chronically Ill - Eye Exam Eye Exam: absent: Scleral icterus - ENT Exam ENT Exam: Mucous Membranes Moist - Respiratory Exam Respiratory Exam: Clear to Ausculation Bilateral. absent: Respiratory Distress Additional comments: decreased breath sounds on L; - Cardiovascular Exam Cardiovascular Exam: RRR, +S1, +S2 - GI/Abdominal Exam GI & Abdominal Exam: Soft. absent: Distended, Tenderness - Extremities Exam Additional comments: 1+ b/l leg edema; - Neurological Exam Neurological Exam: Alert, Awake - Psychiatric Exam Psychiatric exam: Normal Mood. absent: Agitated - Skin Skin Exam: Warm. absent: Cyanosis Assessment and Plan (1) Hyperkalemia Assessment & Plan: Persistent despite being off ARON inhibitor; due to advanced renal insufficiency ; has been getting kayexalate frequently although patient also refuses it frequently; kayexalate resulting in large sodium load which may be worsening his volume status; will try to obtain veltassa as an alternative, is a calcium based exchange resin that allows us to avoid the sodium load (non-formulary form being given to pharmacy); dose will be 16.8 g daily; patient counseled on need for medication adherence and the danger of hyperkalemia; Status: Acute (2) Malnutrition Status: Acute (3) Hypertensive CKD (chronic kidney disease) Assessment & Plan: BP controlled lately; continue current meds including bumex 1 mg bid to maintain adequate volume status; Status: Acute (4) Chronic kidney disease, stage 3 (moderate) Assessment & Plan: Renal insufficiency progressing, worsened by our need to diurese patient; halfway prognosis poor with need for dialysis likely in the next 6-12 months; Status: Chronic (5) Acute renal failure Status: Resolved (6) Nephrotic syndrome Status: Chronic (7) Pleural effusion Assessment & Plan: Recurrent L sided effusion, possibly worsened by our efforts to control K ( kayexalate, intermittent IVF); agree with placing pigtail catheter to avoid recurrence; Status: Chronic (8) Hypothermia Status: Acute (9) Altered mental status Status: Acute (10) SIRS (systemic inflammatory response syndrome) Status: Acute (11) Anemia Assessment & Plan: Hgb dropping lately below goal (10-11g), restarted on EPO, will monitor; Status: Chronic (12) Monoclonal gammopathy Status: Chronic (13) Hypernatremia Status: Acute (14) Chronic kidney disease-mineral and bone disorder Assessment & Plan: Phos elevated, phoslo increased to 2 tabs w/ meals, monitor; Status: Chronic - Assessment and Plan (Free Text) Assessment: Critical care time spent > 35 minutes;
[2017-09-19] MEDS: Albuterol-Ipratrop 3 mg / 0.5 (3 ml) UD INH SCH ×6 (00:10→19:53)
[2017-09-19] MEDS: Morphine 15 mg Immediate Release Tab PO SCH (03:50)
[2017-09-19 05:40] LABS: HEMOGLOBIN 8.5 g/dL (12.0-18.0); MEAN CELL VOLUME 89.5 fl (80.0-94.0); MEAN CORPUSCULAR HEMOGLOBIN 27.8 pg (27.0-31.0); MEAN CORPUSCULAR HGB CONC 31.1 g/dL (33.0-37.0); RBC 3.05 Mil/uL (4.40-5.90); RED CELL DISTRIBUTION WIDTH 18.6 % (11.5-14.5); WHITE BLOOD COUNT 8.7 K/uL (4.8-10.8)
[2017-09-19] MEDS: Levothyroxine 50 MCG TAB PO SCH (05:52)
[2017-09-19 06:30] LABS: ALB/GLOB RATIO 0.8 (1.0-2.1); ALBUMIN 2.7 g/dL (3.5-5.0); CALCIUM 8.4 mg/dL (8.4-10.2)
[2017-09-19] MEDS ORDERED: Sod Polystyrene Sulf 15 gm/60 ml Susp PO STA (06:33)
[2017-09-19] MEDS ORDERED: Insulin Regular 100 units/ml IVP STA (06:34)
[2017-09-19] MEDS ORDERED: Dextrose 50% SYRINGE Inj (50 ml) IVP ONE (06:34)
[2017-09-19] MEDS ORDERED: Sodium Chloride 0.9% 1,000 ML IV SCH (06:45)
[2017-09-19 07:13] LABS: ABG ALLEN TEST YES; ARTERIAL BLOOD GAS HCO3 25.7 mmol/L (21-28); ARTERIAL BLOOD GAS HEMOGLOBIN 8.6 g/dL (11.7-17.4); ARTERIAL BLOOD GAS O2 CAPACITY 11.8 mL/dL (16-24); ARTERIAL BLOOD GAS O2 CONTENT 10.4 ML/dL (15-23); ARTERIAL BLOOD GAS PCO2 45 mm/Hg (35-45); ARTERIAL BLOOD GAS PH 7.38 (7.35-7.45); ARTERIAL BLOOD GAS PO2 48 mm/Hg (80-100)
[2017-09-19] MEDS ORDERED: Calcium Gluconate 4.65 mEq/10 ml Inj IV ONE (07:47)
[2017-09-19] MEDS ORDERED: Insulin Regular 100 units/ml IV STA (07:50)
[2017-09-19] MEDS ORDERED: Dextrose 50% SYRINGE Inj (50 ml) IVP STA ×3 (07:50→11:42)
[2017-09-19 07:51] LABS: VENOUS BLOOD GAS BASE EXCESS -3.9 mmol/L (0.0-2.0); VENOUS BLOOD GAS PCO2 127 mmHg (40-60); VENOUS BLOOD GAS PO2 26 mm/Hg (30-55); VENOUS BLOOD PH 6.97 (7.32-7.43)
[2017-09-19] MEDS ORDERED: Chlorhexidine Gluconate 1 APPL/PKT TP ONE (07:57)
[2017-09-19 08:05] LABS: ABG ALLEN TEST YES; ARTERIAL BLOOD GAS HCO3 18.5 mmol/L (21-28); ARTERIAL BLOOD GAS O2 SAT 99.7 % (95-98); ARTERIAL BLOOD GAS PCO2 121 mm/Hg (35-45); ARTERIAL BLOOD GAS PH 6.92 (7.35-7.45); ARTERIAL BLOOD GAS PO2 159 mm/Hg (80-100); ARTERIAL BLOOD GAS TCO2 28.5 mmol/L (22-28)
[2017-09-19] MEDS ORDERED: Epoetin Alfa 4000 UNIT/ML Inj SC SCH (09:00)
[2017-09-19] MEDS ORDERED: Sodium Bicarbonate 7.5% (0.9 MEQ/ML) 50ML INJ IV ONE (09:00)
[2017-09-19] MEDS ORDERED: Calcium Gluconate 4.65 mEq/10 ml Inj ONE (09:00)
[2017-09-19] MEDS: levETIRAcetam 100 mg/ml (5ml) Oral Syringe PO SCH ×2 (09:30→17:35)
--- NOTE | 2017-09-19 09:33 | CP.PCM.PCO ---
Assessment/Plan - Assessment and Plan (Free Text) Assessment: Pt coded this am and was intubated. Pt has been seen by 2 physicians and deemed not capable of making decisions. Await court to decide Decision Making Capacity pt 's memory has only continued to worsen. Often times pt believes he is at home or in [place]. pt has lost weight and can no longer to walk independently pt even needs assistance with feeding. pt does not have any family. Pt has been refusing medical care- refused medications including Kaxyelate and Lovenox Pt has been DNR/DNI in the past will reinstate as pt's medical condition has worsened. Pt has remained Hyperkalemic despite being off his ARON/ARB. Cr continue to rise. pt continues to require aggressive diuresis and chest tube placement Pt will limited life expectancy and poor quality of life . Currently pt is intubated, not responding to sternal rubs. pupils are fixed. Due to frail medical condition and limited life expectancy pt is not a candidate for further aggressive care Will write order for DNR/DNI please also refer to Dr. Mata's note -as the second phyisician for DNR.
--- NOTE | 2017-09-19 09:33 | CP.PCM.PN ---
Objective - Vital Signs/Intake and Output Vital Signs (last 24 hours): Temp Pulse Resp BP Pulse Ox 97.9 F 77 13 116/63 94 L 09/19/17 08:00 09/19/17 06:03 09/19/17 06:03 09/19/17 06:03 09/19/17 06:03 Intake and Output: 09/19/17 09/19/17 06:59 18:59 Intake Total 285 Output Total 550 Balance -265 - Medications Medications: Current Medications Albuterol/Ipratropium (Duoneb 3 Mg/0.5 Mg (3 Ml) Ud) 3 ml INH RQ4 [facility] Last Admin: 09/19/17 08:19 Dose: 3 ml Amlodipine Besylate (Norvasc) 10 mg PO DAILY [facility] Last Admin: 09/18/17 09:12 Dose: 10 mg Bumetanide (Bumex) 1 mg PO BID [facility] Last Admin: 09/18/17 17:33 Dose: 1 mg Calcitriol (Rocaltrol) 0.25 mcg PO FRI [facility] Calcium Acetate (Phoslo) 1,334 mg PO WM [facility] Last Admin: 09/18/17 17:37 Dose: 1,334 mg Diltiazem HCl (Cardizem Cd) 360 mg PO DAILY [facility] Last Admin: 09/18/17 08:48 Dose: 360 mg Doxazosin Mesylate (Cardura) 1 mg PO HS [facility] Epoetin Roel (Procrit) 4,000 unit SC MWF [facility] Ergocalciferol (Drisdol 50,000 Intl Units Cap) 1 cap PO Q7D [facility] Heparin Sodium (Porcine) (Heparin) 5,000 units SC Q8 [facility] PRN Reason: Protocol Last Admin: 09/19/17 00:33 Dose: 5,000 units Hydralazine HCl (Apresoline) 100 mg PO Q8 [facility] Last Admin: 09/19/17 01:03 Dose: 100 mg Sodium Chloride (Sodium Chloride 0.9%) 1,000 mls @ 100 mls/hr IV .Q10H [facility] Stop: 09/20/17 06:32 Last Admin: 09/19/17 06:46 Dose: 100 mls/hr Lactic Acid (Lac-Hydrin 12% Lotion (225 G)) 1 applic TOP TID [facility] Last Admin: 09/18/17 17:36 Dose: 1 applic Levetiracetam (Keppra) 500 mg PO BID [facility] Last Admin: 09/18/17 17:35 Dose: 500 mg Levothyroxine Sodium (Synthroid) 50 mcg PO DAILY@0630 [facility] Last Admin: 09/19/17 05:52 Dose: 50 mcg Lidocaine (Lidoderm) 1 ea TD DAILY [facility] Last Admin: 09/18/17 08:49 Dose: 1 ea Losartan Potassium (Cozaar) 50 mg PO DAILY [facility] Mirtazapine (Remeron) 30 mg PO HS [facility] Last Admin: 09/18/17 22:17 Dose: 30 mg Morphine Sulfate (Morphine Immediate Release Tab) 15 mg PO Q6 [facility] Last Admin: 09/19/17 03:50 Dose: 15 mg Vancomycin HCl (Vancocin (Oral/Rectal Use)) 125 mg PO QID [facility] PRN Reason: Protocol Last Admin: 09/18/17 22:18 Dose: 125 mg - Labs Labs: 09/19/17 04:20 09/19/17 04:20 PT 11.7 Seconds (9.8-13.1) 09/18/17 04:25 INR 1.1 (0.9-1.2) 09/18/17 04:25 APTT 34.2 Seconds (25.6-37.1) 07/18/17 05:30
[2017-09-19 09:40] LABS: CALCIUM 8.3 mg/dL (8.4-10.2)
--- NOTE | 2017-09-19 09:44 | RAD ---
HISTORY: Worsening Pleural Effusion COMPARISON: Comparison chest 09/18/2017 FINDINGS: No change left-sided PICC line LUNGS: No current study re- demonstrates bilateral pleural effusions and presumed bibasilar atelectasis ; bibasilar atelectasis not excluded PLEURA: No significant pleural effusion identified, no pneumothorax apparent. CARDIOVASCULAR: Heart remains enlarged. OSSEOUS STRUCTURES: No significant abnormalities. VISUALIZED UPPER ABDOMEN: Normal. OTHER FINDINGS: None. IMPRESSION: Bibasilar effusions left larger than right. Bibasilar atelectasis; however concomitant lower lobe infiltrates not excluded
[2017-09-19 09:49] LABS: INR 1.1 (0.9-1.2); PROTHROMBIN TIME 12.1 Seconds (9.8-13.1)
--- NOTE | 2017-09-19 09:53 | CARD ---
APPROVED REPORT EKG Measurement Heart Dait381ICQR [place] [id number] <Conclusion> Sinus rhythm with 1st degree AV block Low voltage QRS Cannot rule out Anterior infarct, age undetermined Abnormal ECG artefact present
[2017-09-19 09:58] LABS: HEMOGLOBIN 8.8 g/dL (12.0-18.0); MEAN CELL VOLUME 89.5 fl (80.0-94.0); MEAN CORPUSCULAR HEMOGLOBIN 28.1 pg (27.0-31.0); MEAN CORPUSCULAR HGB CONC 31.3 g/dL (33.0-37.0); RBC 3.15 Mil/uL (4.40-5.90); RED CELL DISTRIBUTION WIDTH 18.2 % (11.5-14.5); WHITE BLOOD COUNT 8.5 K/uL (4.8-10.8)
--- NOTE | 2017-09-19 10:05 | RAD ---
HISTORY: Status post intubation. COMPARISON: No prior. FINDINGS: In situ ETT, tip of which lies approximately 4.77 cm above endy. In situ NGT, the tip of which lies just below EG junction and should be advanced. No change left-sided PICC line. LUNGS: Note that the left lung base partially obscured by overlying cardiac defibrillator pants however patchy bilateral lower lobe infiltrates and bilateral effusions left larger than right again seen. PLEURA: No significant pleural effusion identified, no pneumothorax apparent. CARDIOVASCULAR: Normal. OSSEOUS STRUCTURES: No significant abnormalities. VISUALIZED UPPER ABDOMEN: Normal. OTHER FINDINGS: None. IMPRESSION: Distal aspect NGT lies just below EG junction and should be advanced. ETT and PICC line as above. Patchy bilateral lower lobe opacities right greater than left may represent infiltrate and/or atelectasis Suspect small bilateral effusions. Interval improvement vascular congestive changes seen on prior study . Note these findings were discussed with Dr. Mata at approximately 1005 a.m. with written down and read back verification.
--- NOTE | 2017-09-19 10:22 | CP.CCUPN ---
CCU Subjective - Physician Review Subjective (Free Text): ROBERTO RODNEY note: Roberto Rodney called after nurse noted patient to be apneic, Code team responded, at this time chest excursions noted and pulses were palpable; this then quickly deteriorated to apnea again. CPR and ACLS protocol initiated. High quality chest compressions were ensured. senior director of [employer] revealed sinus bradycardia and an initial dose of 0.5 mg of atropine IV push was given; systolic pressure approximately 89. Ambubug ventilations were provided at this time. Palpable pulses were lost again and chest compressions were resumed. Decision made to intubate orally: 8.0 mm ET tube was inserted sky-tracheally after a large amount of pooled secretions were noted in the posterior pharynx on direct laryngoscopy. ET tube was passed through 23 cm ad the lips with satisfactory breath sounds bilaterally and color change on the ETCO2 device. Copious yellow secretions were suctioned from the ETT. Rhythm deteriorated to asystole for a short period of time and additional Atropine given with Epinephrine. Acute treatment also given for hyperkalemia according to todays AM labs. Bicarb, D50W, Insulin and calcium gluconate given. IVF challenge with 1 liter NSS given as well as starting Norepinephrine infusion. Final rhythm achieved was sinus tachycardia with adventist of pulses. PH 6.92 post-code and additional bicarbonate given. Post-resuscitation, patient appears comatose, pupils 4mm size and non-reactive , he is triggering the vent at 18/ min on AC 16. Post- code EKG shows sinus tachy with 1st deg AVB, and low voltage.
--- NOTE | 2017-09-19 10:27 | PCM.PROC ---
Procedures Attestation:: I certify that I have explained the specified Operation(s) or Procedure(s), risks, benefits and reasonable alternatives to the Patient and/or other person responsible. The opportunity was given to ask questions and all questions answered - Arterial Line Right Femoral Aseptic technique was employed throughout the procedure: Chloraprep Antiseptic: 2 minute prep for Femoral Time Out Performed: Yes Pt. placed on Pulse Ox Monitor: Yes Central Line Prep: Chlorhexidine-Alcohol Combination Ultrasound Used for Placement: No Gauge (Size): 20 gauge (6 inch angiocath) Technique Used: Guide Wire Technique Secured by: Suture Post procedure dressing: Chlorhexidine disc (Biopatch) Patient Tolerated Procedure: well Immediate Complications: none Additional Comments: Procedure done under emergent conditions Post Cardiac Arrest and under vasopressor support.
--- NOTE | 2017-09-19 10:57 | CP.PCM.PCO ---
Addendum Addendum: I have discussed this mornings current events with PMD, Dr. Kelley. A pre -terminal event occurred this Am and he was resuscitated form sudden due to resp arrest leading to a cardiac arrest. Post-resuscitation, he is in a deep coma and has anoxic encephalopathy. I agree with Dr. Kelleys determination and that his overall prognosis has worsened with a higher mortality risk. He may not survive another Code Blue event. Given all these circumstances as well as the ones listed by Dr. Kelley, a DNR order would be appropriate since further resuscitative efforts would be futile.
[2017-09-19 11:35] LABS: ABG ALLEN TEST YES; ARTERIAL BLOOD GAS HCO3 29.9 mmol/L (21-28); ARTERIAL BLOOD GAS O2 CAPACITY 11.1 mL/dL (16-24); ARTERIAL BLOOD GAS O2 CONTENT 10.9 ML/dL (15-23); ARTERIAL BLOOD GAS O2 SAT 98.3 % (95-98); ARTERIAL BLOOD GAS PCO2 41 mm/Hg (35-45); ARTERIAL BLOOD GAS PH 7.48 (7.35-7.45); ARTERIAL BLOOD GAS PO2 67 mm/Hg (80-100); ARTERIAL BLOOD GAS TCO2 31.8 mmol/L (22-28)
[2017-09-19] MEDS ORDERED: Dextrose 50% SYRINGE Inj (50 ml) ONE (11:37)
[2017-09-19] MEDS ORDERED: Albuterol 0.083% Inhal Sol (2.5 mg/3 mL) UD INH STA (11:40)
--- NOTE | 2017-09-19 12:55 | CP.PCM.PN ---
Subjective - Date & Time of Evaluation Date of Evaluation: 09/19/17 Time of Evaluation: 08:00 - Subjective Subjective: Code Blue was called on pt in the am (see code note for details). Pt was resuscitated and intubated. After code, pt's neurological scale was GCS 3: No eye opening, No verbal response, no Motor response. Objective - Vital Signs/Intake and Output Vital Signs (last 24 hours): Temp Pulse Resp BP Pulse Ox 97.7 F 84 16 138/71 100 09/19/17 12:13 09/19/17 12:13 09/19/17 12:13 09/19/17 12:13 09/19/17 12:13 Intake and Output: 09/19/17 09/19/17 06:59 18:59 Intake Total 285 Output Total 550 Balance -265 - Medications Medications: Current Medications Albuterol/Ipratropium (Duoneb 3 Mg/0.5 Mg (3 Ml) Ud) 3 ml INH RQ4 [facility] Last Admin: 09/19/17 11:24 Dose: 3 ml Amlodipine Besylate (Norvasc) 10 mg PO DAILY [facility] Last Admin: 09/18/17 09:12 Dose: 10 mg Bumetanide (Bumex) 1 mg PO BID [facility] Last Admin: 09/18/17 17:33 Dose: 1 mg Calcitriol (Rocaltrol) 0.25 mcg PO FRI [facility] Calcium Acetate (Phoslo) 1,334 mg PO WM [facility] Last Admin: 09/18/17 17:37 Dose: 1,334 mg Diltiazem HCl (Cardizem Cd) 360 mg PO DAILY [facility] Last Admin: 09/18/17 08:48 Dose: 360 mg Doxazosin Mesylate (Cardura) 1 mg PO HS [facility] Epoetin Roel (Procrit) 4,000 unit SC MWF [facility] Ergocalciferol (Drisdol 50,000 Intl Units Cap) 1 cap PO Q7D [facility] Heparin Sodium (Porcine) (Heparin) 5,000 units SC Q8 [facility] PRN Reason: Protocol Last Admin: 09/19/17 00:33 Dose: 5,000 units Hydralazine HCl (Apresoline) 100 mg PO Q8 [facility] Last Admin: 09/19/17 01:03 Dose: 100 mg Sodium Chloride (Sodium Chloride 0.9%) 1,000 mls @ 100 mls/hr IV .Q10H [facility] Stop: 09/20/17 06:32 Last Admin: 09/19/17 06:46 Dose: 100 mls/hr Lactic Acid (Lac-Hydrin 12% Lotion (225 G)) 1 applic TOP TID [facility] Last Admin: 09/18/17 17:36 Dose: 1 applic Levetiracetam (Keppra) 500 mg PO BID [facility] Last Admin: 09/18/17 17:35 Dose: 500 mg Levothyroxine Sodium (Synthroid) 50 mcg PO DAILY@0630 [facility] Last Admin: 09/19/17 05:52 Dose: 50 mcg Lidocaine (Lidoderm) 1 ea TD DAILY [facility] Last Admin: 09/18/17 08:49 Dose: 1 ea Losartan Potassium (Cozaar) 50 mg PO DAILY [facility] Mirtazapine (Remeron) 30 mg PO HS [facility] Last Admin: 09/18/17 22:17 Dose: 30 mg Morphine Sulfate (Morphine Immediate Release Tab) 15 mg PO Q6 [facility] Last Admin: 09/19/17 03:50 Dose: 15 mg - Labs Labs: 09/19/17 09:11 09/19/17 09:11 PT 12.1 Seconds (9.8-13.1) 09/19/17 09:11 INR 1.1 (0.9-1.2) 09/19/17 09:11 APTT 34.2 Seconds (25.6-37.1) 07/18/17 05:30 - Constitutional Appears: Cachectic, Chronically Ill, Other (comatose ) - Head Exam Head Exam: NORMAL INSPECTION - Eye Exam Eye Exam: Normal appearance Pupil Exam: Fixed - ENT Exam ENT Exam: Mucous Membranes Moist - Respiratory Exam Respiratory Exam: Decreased Breath Sounds (Left sided), Rales (Left lower rales ). absent: Accessory Muscle Use, Wheezes - Cardiovascular Exam Cardiovascular Exam: REGULAR RHYTHM, +S1, +S2. absent: Murmur - GI/Abdominal Exam GI & Abdominal Exam: Soft, Tenderness. absent: Distended - Neurological Exam Neurological Exam: Reflexes Normal. absent: Alert (GCS 3) Assessment and Plan - Assessment and Plan (Free Text) Assessment: Assessment: 67M, homeless, with profound health issues that are currently stabilized with a multitude of medications to include oxygen. He is not medically or financially stable for discharge to home at this time. Currently on treatment for Cdiff, antibiotic day#13. Chronic pleural effusion shown to be worsening today. Plan: Pt coded in the am, he was resuscitated and intubated but is currently comatose (GCS3) likely from anoxic brain injury. Given Pt's limited life expectancy and poor quality of life, the decision to re- instate his DNR/DNI status via 2 physician sign off was made. #Hypoxic respiratory failure 2/2 to worsening BL peural effusions -Pt O2 sat 80's overnight + dyspnic -Intubated -C/w High flow O2 -Chest physiotherapy q 1hr -F/u repeat Cxray in afternoon #C.diff -Clinically improved -Completed course of Vanco po x 14 days -no fever, white count #Hyperkalemia, chronic -6.5 this morning. Received Insulin, D50, and Albuterol -c/w scheduled albuterol -Kayexelate 15 today- pt refused yesterday -f/u am BMP -Lisinopril held #Anemia -Hg, 9.3 today -Procrit Sc TTHSat -Iron studies sent -F/U cbc #HTN -Normotensive overnight. -Rental Car [employer]erry Driver, Dr. Luz on board. -C/w with antihypertensive regimen #CKD -Crea 2.4 today -Secondary to nephrotic syndrome -Nephrology Consult (Dr Luz) greatly appreciated- c/w all recommendations -Avoid nephrotoxic meds -F/U BMP #Hyperphosphatemia -8.3 -Increase Phosphlo dosage to 2 tablets with meals -f/u am phosphorous #Muscle pain, R Lower leg -Pt intermittently complaining of muscle pain, in different locations -Lidocaine patches -Oral morphine sched q6 #DM -Endocrinology Consult (Dr Mann) appreciated- pt may have glucose impairment, but intermittent hypoglycemic episodes prompted cessation of Prandin and no further hypoglycemia -Hga1c= 5.7 on 08/19. POCG wnl. Insulin, ISS, hypoglycemic protocol, and Accuchecks d/c'd for now. Will reassess in 2 weeks DVT Prophylaxis: -SC Heparin. Pt refusing heparin. Ambulating. BL LE doppler negative for DVT ()
--- NOTE | 2017-09-19 14:39 | VASCULAR ---
PROCEDURE: Date of procedure: 09/18/2017 Procedure: 1. Placement of a left chest tube for large pleural effusion Medications: 6cc 1 percent lidocaine HISTORY: Large left pleural effusion TECHNIQUE: Following informed consent and procedure time-out, the patient's left anterior chest was marked, prepped and draped in the usual sterile fashion. Ultrasound showed a large loculated left pleural effusion. After the skin was anesthetized with 1% lidocaine and the Pt was sedated by the anesthesiologist, a [place] catheter was advanced under ultrasound guidance into the pleural space. The catheter was exchanged over an 035 guidewire and tract was dilated to accommodate a 8.5 Swedish pigtail catheter formed within the pleural space. There is return of slight serosanguinous fluid. The catheter was secured to patient's skin. A xeroform dressing was applied. The catheter was then attached to a pleurovac. Postprocedure x-ray showed a left chest tube. IMPRESSION: Placement of an 8.5 Swedish left chest tube. There were no immediate complications.
--- NOTE | 2017-09-19 15:25 | VASCULAR ---
PROCEDURE: Date of procedure: 09/18/2017 Procedure: 1. Placement of a right arm PICC with ultrasound and fluoroscopic guidance, CPT 98733 2. PICC tip confirmation with spot radiograph and is in the superior vena cava Medications: 1 percent lidocaine Total Fluoro time: 7.5 seconds Radiation: 1.18 mGy EBL: 2 cc HISTORY: Infection requiring long-term IV antibiotics TECHNIQUE: Following informed consent and procedure time-out, the patient was placed supine on the interventional table and the right arm prepped and draped in the usual sterile fashion. Ultrasound showed a patent and compressible right basilic vein. After the skin was anesthetized with lidocaine, the basilic vein was accessed with micro micropuncture technique using ultrasound guidance. A guidewire was then advanced under fluoroscopic guidance into the superior vena cava. An image documenting ultrasound guidance for vascular access was permanently saved. The length of the single-lumen 4 Indonesian PICC was trimmed to 37 centimeters and advanced through a peel-away sheath. The PICC was position with tip of PICC confirm a spot radiograph the superior vena cava. The PICC was secured to the patient's skin. The PICC was flushed. A biopatch and sterile dressing was applied. IMPRESSION: Placement of a single-lumen 4 Indonesian PICC trimmed to 37 centimeters via right basilic vein. The tip of the PICC is confirmed with spot radiograph and is in the superior vena cava.
--- NOTE | 2017-09-19 15:57 | CP.PCM.PN ---
Subjective - Date & Time of Evaluation Date of Evaluation: 09/19/17 Time of Evaluation: 15:55 - Subjective Subjective: 67 yo M w/ htn, dm, CKD IIIB/IV with severe nephrotic syndrome, recurrent pleural effusions, recently plagued by hyperkalemia, prolonged hospital course, today suffered prolonged cardiac arrest after being found to have respiratory arrest; patient intubated and started on vasopressor support; Objective - Vital Signs/Intake and Output Vital Signs (last 24 hours): Temp Pulse Resp BP Pulse Ox 97.7 F 99 H 13 136/65 98 09/19/17 12:13 09/19/17 14:00 09/19/17 14:00 09/19/17 14:00 09/19/17 14:00 Intake and Output: 09/19/17 09/19/17 06:59 18:59 Intake Total 285 Output Total 550 Balance -265 - Medications Medications: Current Medications Albuterol/Ipratropium (Duoneb 3 Mg/0.5 Mg (3 Ml) Ud) 3 ml INH RQ4 [facility] Last Admin: 09/19/17 11:24 Dose: 3 ml Amlodipine Besylate (Norvasc) 10 mg PO DAILY [facility] Last Admin: 09/18/17 09:12 Dose: 10 mg Bumetanide (Bumex) 1 mg PO BID [facility] Last Admin: 09/18/17 17:33 Dose: 1 mg Calcitriol (Rocaltrol) 0.25 mcg PO FRI [facility] Calcium Acetate (Phoslo) 1,334 mg PO WM [facility] Last Admin: 09/18/17 17:37 Dose: 1,334 mg Diltiazem HCl (Cardizem Cd) 360 mg PO DAILY [facility] Last Admin: 09/18/17 08:48 Dose: 360 mg Doxazosin Mesylate (Cardura) 1 mg PO HS [facility] Epoetin Roel (Procrit) 4,000 unit SC MWF [facility] Ergocalciferol (Drisdol 50,000 Intl Units Cap) 1 cap PO Q7D [facility] Heparin Sodium (Porcine) (Heparin) 5,000 units SC Q8 [facility] PRN Reason: Protocol Last Admin: 09/19/17 00:33 Dose: 5,000 units Hydralazine HCl (Apresoline) 100 mg PO Q8 [facility] Last Admin: 09/19/17 01:03 Dose: 100 mg Sodium Chloride (Sodium Chloride 0.9%) 1,000 mls @ 100 mls/hr IV .Q10H [facility] Stop: 09/20/17 06:32 Last Admin: 09/19/17 06:46 Dose: 100 mls/hr Lactic Acid (Lac-Hydrin 12% Lotion (225 G)) 1 applic TOP TID [facility] Last Admin: 09/18/17 17:36 Dose: 1 applic Levetiracetam (Keppra) 500 mg PO BID [facility] Last Admin: 09/18/17 17:35 Dose: 500 mg Levothyroxine Sodium (Synthroid) 50 mcg PO DAILY@0630 [facility] Last Admin: 09/19/17 05:52 Dose: 50 mcg Lidocaine (Lidoderm) 1 ea TD DAILY [facility] Last Admin: 09/18/17 08:49 Dose: 1 ea Mirtazapine (Remeron) 30 mg PO HS [facility] Last Admin: 09/18/17 22:17 Dose: 30 mg Morphine Sulfate (Morphine Immediate Release Tab) 15 mg PO Q6 [facility] Last Admin: 09/19/17 03:50 Dose: 15 mg - Labs Labs: 09/19/17 09:11 09/19/17 09:11 PT 12.1 Seconds (9.8-13.1) 09/19/17 09:11 INR 1.1 (0.9-1.2) 09/19/17 09:11 APTT 34.2 Seconds (25.6-37.1) 07/18/17 05:30 - Constitutional Appears: No Acute Distress, Chronically Ill - Eye Exam Eye Exam: absent: Scleral icterus - ENT Exam ENT Exam: Mucous Membranes Moist - Respiratory Exam Additional comments: rhonchorous breath sounds, more pronounced on L; - Cardiovascular Exam Cardiovascular Exam: RRR, +S1, +S2 - GI/Abdominal Exam GI & Abdominal Exam: Soft. absent: Distended - Exam Exam: Bladder Distension - Extremities Exam Additional comments: mild b/l leg edema; - Neurological Exam Additional comments: not responsive to noxious stimuli; - Skin Skin Exam: Warm. absent: Cyanosis Assessment and Plan (1) Hyperkalemia Status: Acute (2) Malnutrition Status: Acute (3) Hypertensive CKD (chronic kidney disease) Status: Acute (4) Chronic kidney disease, stage 3 (moderate) Status: Chronic (5) Acute renal failure Status: Resolved (6) Nephrotic syndrome Status: Chronic (7) Pleural effusion Status: Chronic (8) Hypothermia Status: Acute (9) Altered mental status Status: Acute (10) SIRS (systemic inflammatory response syndrome) Status: Acute (11) Anemia Status: Chronic (12) Monoclonal gammopathy Status: Chronic (13) Hypernatremia Status: Acute (14) Chronic kidney disease-mineral and bone disorder Status: Chronic - Assessment and Plan (Free Text) Assessment: 1- s/p Cardiac Arrest - Prolonged arrest before achieving ROSC; has some neurologic function but overall appears to have suffered severe anoxic injury; inciting cause of arrest not entirely clear (respiratory arrest due to aspiration? Hyperkalemia?); Overall very poor prognosis for quality of life; re-instating DNR is very reasonable decision for patient who has no family that can be contacted as any further aggressive measures are likely futile; if patient has suffered acute kidney injury on top of already advanced CKD, would not pursue hemodialysis; 2- Hyperkalemia - Treated medically by insulin, kayexalate, florinef and IVF this morning; should continue on daily kayexalate 15 g via NGT; 3- CKD IIIB/IV - Progressively worsening renal function with severe nephrotic syndrome; cannot tolerate KEVIN blockade due to hyperkalemia; continue to maintain adequate BP control; 4- Hypertensive CKD - Currently hypotensive on small amount of vasopressor support; can restart PO meds gradually once patient stabilizes; 5- Anemia of CKD - Hgb below goal; iron sat low; restarted EPO this week; will give IV iron; 6- CKD Mineral Bone Disease - Phos elevated; patient should be started on tube feeds with nepro; hold phos binders for now;
[2017-09-20] MEDS: Albuterol-Ipratrop 3 mg / 0.5 (3 ml) UD INH SCH ×7 (00:29→23:20)
[2017-09-20 05:18] LABS: ABG ALLEN TEST YES; ARTERIAL BLOOD GAS HCO3 28.7 mmol/L (21-28); ARTERIAL BLOOD GAS O2 CAPACITY 11.1 mL/dL (16-24); ARTERIAL BLOOD GAS O2 SAT 99.4 % (95-98); ARTERIAL BLOOD GAS PCO2 46 mm/Hg (35-45); ARTERIAL BLOOD GAS PH 7.42 (7.35-7.45); ARTERIAL BLOOD GAS PO2 86 mm/Hg (80-100); ARTERIAL BLOOD GAS TCO2 31.2 mmol/L (22-28)
[2017-09-20] MEDS: Levothyroxine 50 MCG TAB PO SCH (05:58)
[2017-09-20 06:31] LABS: HEMOGLOBIN 7.7 g/dL (12.0-18.0); MEAN CELL VOLUME 89.5 fl (80.0-94.0); MEAN CORPUSCULAR HEMOGLOBIN 27.8 pg (27.0-31.0); MEAN CORPUSCULAR HGB CONC 31.1 g/dL (33.0-37.0); RBC 2.76 Mil/uL (4.40-5.90); RED CELL DISTRIBUTION WIDTH 18.5 % (11.5-14.5)
[2017-09-20 06:42] LABS: CALCIUM 8.3 mg/dL (8.4-10.2)
[2017-09-20] MEDS: levETIRAcetam 100 mg/ml (5ml) Oral Syringe PO SCH ×2 (08:34→17:23)
--- NOTE | 2017-09-20 09:58 | RAD ---
HISTORY: ETT placement; L chest pigtail COMPARISON: No prior. FINDINGS: In situ ETT, tip of which lies approximately 5.1 cm above endy. In situ NGT, the tip of which lies left upper quadrant of the abdomen left-sided PICC line unchanged Left sided pigtail chest tube catheter is again noted. LUNGS: The re- demonstrated is left lower lobe opacity that may represent some combination of residual effusion atelectasis and/or infiltrate. Vague opacity also noted in the right lung base. PLEURA: As above. No pneumothorax apparent. CARDIOVASCULAR: Normal. OSSEOUS STRUCTURES: No significant abnormalities. VISUALIZED UPPER ABDOMEN: Normal. OTHER FINDINGS: None. IMPRESSION: Support lines and tubes as above. Residual left lower lobe opacity likely representing some combination of effusion with left lower lobe atelectasis and or infiltrate. Suspect mild right basilar atelectasis.
--- NOTE | 2017-09-20 12:01 | CP.PCM.PN ---
Subjective - Date & Time of Evaluation Date of Evaluation: 09/20/17 Time of Evaluation: 09:50 - Subjective Subjective: Pt seen and examined at bedside, currently comfort care. intubated, not responsive to touch. Nurses notes reviewed for overnight events Objective - Vital Signs/Intake and Output Vital Signs (last 24 hours): Temp Pulse Resp BP Pulse Ox 98.8 F 101 H 12 130/50 L 100 09/20/17 08:00 09/20/17 10:00 09/20/17 10:00 09/20/17 10:00 09/20/17 10:00 Intake and Output: 09/20/17 09/20/17 06:59 18:59 Intake Total 570 354 Output Total 500 Balance 70 354 - Medications Medications: Current Medications Albuterol/Ipratropium (Duoneb 3 Mg/0.5 Mg (3 Ml) Ud) 3 ml INH RQ4 [facility] Last Admin: 09/20/17 10:59 Dose: 3 ml Amlodipine Besylate (Norvasc) 10 mg PO DAILY [facility] Last Admin: 09/18/17 09:12 Dose: 10 mg Bumetanide (Bumex) 1 mg PO BID [facility] Last Admin: 09/20/17 08:19 Dose: 1 mg Calcitriol (Rocaltrol) 0.25 mcg PO FRI [facility] Last Admin: 09/19/17 09:41 Dose: Not Given Calcium Acetate (Phoslo) 1,334 mg PO WM [facility] Last Admin: 09/20/17 08:35 Dose: 1,334 mg Diltiazem HCl (Cardizem Cd) 360 mg PO DAILY [facility] Last Admin: 09/18/17 08:48 Dose: 360 mg Doxazosin Mesylate (Cardura) 1 mg PO HS [facility] Epoetin Roel (Procrit) 4,000 unit SC MWF [facility] Last Admin: 09/19/17 09:40 Dose: 4,000 unit Ergocalciferol (Drisdol 50,000 Intl Units Cap) 1 cap PO Q7D [facility] Heparin Sodium (Porcine) (Heparin) 5,000 units SC Q8 [facility] PRN Reason: Protocol Last Admin: 09/20/17 08:33 Dose: 5,000 units Hydralazine HCl (Apresoline) 100 mg PO Q8 [facility] Last Admin: 09/19/17 01:03 Dose: 100 mg Lactic Acid (Lac-Hydrin 12% Lotion (225 G)) 1 applic TOP TID [facility] Last Admin: 09/20/17 08:34 Dose: 1 applic Levetiracetam (Keppra) 500 mg PO BID [facility] Last Admin: 09/20/17 08:34 Dose: 500 mg Levothyroxine Sodium (Synthroid) 50 mcg PO DAILY@0630 [facility] Last Admin: 09/20/17 05:58 Dose: 50 mcg Lidocaine (Lidoderm) 1 ea TD DAILY [facility] Last Admin: 09/18/17 08:49 Dose: 1 ea Mirtazapine (Remeron) 30 mg PO HS [facility] Last Admin: 09/18/17 22:17 Dose: 30 mg Morphine Sulfate (Morphine Immediate Release Tab) 15 mg PO Q6 [facility] Last Admin: 09/19/17 03:50 Dose: 15 mg - Labs Labs: 09/20/17 05:30 09/20/17 05:30 PT 12.1 Seconds (9.8-13.1) 09/19/17 09:11 INR 1.1 (0.9-1.2) 09/19/17 09:11 APTT 34.2 Seconds (25.6-37.1) 07/18/17 05:30 - Constitutional Appears: Cachectic, Chronically Ill - Respiratory Exam Respiratory Exam: Decreased Breath Sounds Additional comments: ventilator assisted breathing - Cardiovascular Exam Cardiovascular Exam: REGULAR RHYTHM, +S1, +S2 - GI/Abdominal Exam GI & Abdominal Exam: Soft - Neurological Exam Neurological Exam: absent: Alert - Skin Skin Exam: Dry, Mottled Assessment and Plan - Assessment and Plan (Free Text) Assessment: 67M, homeless, with profound health issues that are currently stabilized with a multitude of medications to include oxygen. He is not medically or financially stable for discharge to home at this time. Completed C.diff treatment on . Chronic pleural effusion Plan: Pt coded yesterday (09/20/17), he was resuscitated and intubated but is currently comatose (GCS3) likely from anoxic brain injury. Given Pt's limited life expectancy and poor quality of life, the decision to re- instate his DNR/DNI status via 2 physician sign off was made. Pt is currently comfort care continue with current care as ordered continue to monitor for signs of pain and medicate accordingly continue with all medications as ordered
--- NOTE | 2017-09-20 12:31 | CP.CCUPN ---
CCU Subjective - Physician Review Events Since Last Encounter (Free Text): 09/20/17 12:26 Unresponsive On vent, no spontaneous breathing effort BP stable, Good urine output. CCU Objective - Vital Signs / Intake & Output Vital Signs (Last 4 hours): Vital Signs Pulse Resp BP Pulse Ox 09/20/17 10:00 101 H 12 130/50 L 100 Intake and Output (Last 8hrs): Intake & Output 09/19/17 09/20/17 09/20/17 22:59 06:59 14:59 Intake Total 1325 450 354 Output Total 1634 500 Balance -309 -50 354 Intake: IV 1175 4 Tube Feeding 150 300 200 Free Water Flush 150 150 Output: Chest Tube Drainage 534 150 Left Lateral Chest 150 Left Upper Lateral Chest 534 Urine 1100 350 Urethral (Salazar) 1100 350 Other: # Bowel Movements 0 1 - Physical Exam Narrative Physical Exam (Free Text): 09/20/17 12:27 P.E Neck: No JVD Lungs: decreased breath sound,s bases Heart: No gallop Abdomen: soft Ext: +1 edema. Head: Positive for: Atraumatic, Normocephalic Pupils: Positive for: PERRL Extroacular Muscles: Positive for: EOMI Conjunctiva: Negative for: Icteric Mouth: Positive for: Moist Mucous Membranes Nose (External): Negative for: Lesions Neck: Positive for: Normal Range of Motion (Supple ), Other (central line: left chest wall in place with dressing, clean and dry.) Respiratory/Chest: Positive for: Good Air Exchange, Rhonchi (Left basilar and mild lung rhonchi greater on the left than right ). Negative for: Respiratory Distress, Tachypneic Cardiovascular: Positive for: Regular Rate and Rhythm, Normal S1, S2. Negative for: Tachycardic, Bradycardic Abdomen: Negative for: Tenderness, Distention, Guarding Genitourinary Male: Positive for: Penile Swelling, Testicle Swelling Upper Extremity: Positive for: Edema (bilat upper extremity edema noted no change from previous exam but equal pulses bilaterally ), NORMAL PULSES, Capillary Refill < 2s Lower Extremity: Negative for: Edema, CALF TENDERNESS Neurological: Positive for: CN II-XII Intact Skin: Positive for: Warm, Dry, Other (supeficial abrasion of left hand healing well ) Psychiatric: Positive for: Alert, Oriented x 3 - Medications Active Medications: Active Medications Generic Name Dose Route Start Last Admin Trade Name Miltonq PRN Reason Stop Dose Admin Albuterol/Ipratropium 3 ml 09/18/17 04:00 09/20/17 10:59 Duoneb 3 Mg/0.5 Mg (3 Ml) Ud INH 3 ml RQ4 [facility] Administration Amlodipine Besylate 10 mg 09/18/17 09:00 09/18/17 09:12 Norvasc PO 10 mg DAILY [facility] Administration Bumetanide 1 mg 09/18/17 09:00 09/20/17 08:19 Bumex PO 1 mg BID [facility] Administration Calcitriol 0.25 mcg 09/19/17 09:00 09/19/17 09:41 Rocaltrol PO Not Given FRI [facility] Calcium Acetate 1,334 mg 09/18/17 07:30 09/20/17 08:35 Phoslo PO 1,334 mg WM [facility] Administration Diltiazem HCl 360 mg 09/18/17 09:00 09/18/17 08:48 Cardizem Cd PO 360 mg DAILY [facility] Administration Doxazosin Mesylate 1 mg 09/18/17 22:00 Cardura PO HS [facility] Epoetin Roel 4,000 unit 09/19/17 09:00 09/19/17 09:40 Procrit SC 4,000 unit MWF [facility] Administration Ergocalciferol 1 cap 09/23/17 09:00 Drisdol 50,000 Intl Units Cap PO Q7D [facility] Heparin Sodium (Porcine) 5,000 units 09/18/17 01:00 09/20/17 08:33 Heparin SC 5,000 units Q8 [facility] Administration Protocol Hydralazine HCl 100 mg 09/18/17 09:00 09/19/17 01:03 Apresoline PO 100 mg Q8 [facility] Administration Lactic Acid 1 applic 09/18/17 09:00 09/20/17 08:34 Lac-Hydrin 12% Lotion (225 G) TOP 1 applic TID [facility] Administration Levetiracetam 500 mg 09/18/17 09:00 09/20/17 08:34 Keppra PO 500 mg BID [facility] Administration Levothyroxine Sodium 50 mcg 09/18/17 06:30 09/20/17 05:58 Synthroid PO 50 mcg DAILY@0630 [facility] Administration Lidocaine 1 ea 09/18/17 09:00 09/18/17 08:49 Lidoderm TD 1 ea DAILY [facility] Administration Mirtazapine 30 mg 09/18/17 22:00 09/18/17 22:17 Remeron PO 30 mg HS [facility] Administration Morphine Sulfate 15 mg 09/18/17 04:00 09/19/17 03:50 Morphine Immediate Release Tab PO 15 mg Q6 [facility] Administration - Patient Studies Lab Studies: Microbiology Studies 09/18/17 06:10 MRSA Culture (Admit) - Final Nose MRSA NOT DETECTED Lab Studies 09/20/17 09/20/17 09/20/17 Range/Units 12:00 05:51 05:30 WBC (4.8-10.8) K/uL RBC (4.40-5.90) Mil/uL Hgb (12.0-18.0) g/dL Hct (35.0-51.0) % MCV (80.0-94.0) fl MCH (27.0-31.0) pg MCHC (33.0-37.0) g/dL RDW (11.5-14.5) % Plt Count (130-400) K/uL pCO2 (35-45) mm/Hg pO2 (80-100) mm/Hg HCO3 (21-28) mmol/L ABG pH (7.35-7.45) ABG Total CO2 (22-28) mmol/L ABG O2 Saturation (95-98) % ABG O2 Content (15-23) ML/dL ABG Base Excess (-2.0-3.0) mmol/L ABG Hemoglobin (11.7-17.4) g/dL ABG Carboxyhemoglobin (0.5-1.5) % POC ABG HHb (Measured) (0.0-5.0) % ABG Methemoglobin (0.0-3.0) % ABG O2 Capacity (16-24) mL/dL Andry Test A-a O2 Difference mm/Hg Hgb O2 Saturation (95.0-98.0) % Vent Mode Mechanical Rate FiO2 % Tidal Volume PEEP Sodium 147 (132-148) mmol/l Potassium 5.0 (3.6-5.0) MMOL/L Chloride 109 H (98-107) mmol/L Carbon Dioxide 29 (22-30) mmol/L Anion Gap 14 (10-20) BUN 70 H (9-20) mg/dl Creatinine 2.4 H (0.8-1.5) mg/dl Est GFR ( Amer) 33 Est GFR (Non-Af Amer) 27 POC Glucose (mg/dL) 149 H 139 H (65-110) mg/dL Random Glucose 148 H (75-110) mg/dL Calcium 8.3 L (8.4-10.2) mg/dL 09/20/17 09/20/17 09/19/17 Range/Units 05:30 04:48 21:12 WBC 13.0 H D (4.8-10.8) K/uL RBC 2.76 L (4.40-5.90) Mil/uL Hgb 7.7 L (12.0-18.0) g/dL Hct 24.7 L (35.0-51.0) % MCV 89.5 (80.0-94.0) fl MCH 27.8 (27.0-31.0) pg MCHC 31.1 L (33.0-37.0) g/dL RDW 18.5 H (11.5-14.5) % Plt Count 185 (130-400) K/uL pCO2 46 H (35-45) mm/Hg pO2 86 (80-100) mm/Hg HCO3 28.7 H (21-28) mmol/L ABG pH 7.42 (7.35-7.45) ABG Total CO2 31.2 H (22-28) mmol/L ABG O2 Saturation 99.4 H (95-98) % ABG O2 Content 11.0 L (15-23) ML/dL ABG Base Excess 4.8 H (-2.0-3.0) mmol/L ABG Hemoglobin 8.0 L (11.7-17.4) g/dL ABG Carboxyhemoglobin 1.8 H (0.5-1.5) % POC ABG HHb (Measured) 0.6 (0.0-5.0) % ABG Methemoglobin 0.7 (0.0-3.0) % ABG O2 Capacity 11.1 L (16-24) mL/dL Andry Test Yes A-a O2 Difference 213.0 mm/Hg Hgb O2 Saturation 96.8 (95.0-98.0) % Vent Mode A/c Mechanical Rate 12 FiO2 50.0 % Tidal Volume 450 PEEP 3 Sodium (132-148) mmol/l Potassium (3.6-5.0) MMOL/L Chloride (98-107) mmol/L Carbon Dioxide (22-30) mmol/L Anion Gap (10-20) BUN (9-20) mg/dl Creatinine (0.8-1.5) mg/dl Est GFR ( Amer) Est GFR (Non-Af Amer) POC Glucose (mg/dL) 116 H (65-110) mg/dL Random Glucose (75-110) mg/dL Calcium (8.4-10.2) mg/dL 09/19/17 Range/Units 15:37 WBC (4.8-10.8) K/uL RBC (4.40-5.90) Mil/uL Hgb (12.0-18.0) g/dL Hct (35.0-51.0) % MCV (80.0-94.0) fl MCH (27.0-31.0) pg MCHC (33.0-37.0) g/dL RDW (11.5-14.5) % Plt Count (130-400) K/uL pCO2 (35-45) mm/Hg pO2 (80-100) mm/Hg HCO3 (21-28) mmol/L ABG pH (7.35-7.45) ABG Total CO2 (22-28) mmol/L ABG O2 Saturation (95-98) % ABG O2 Content (15-23) ML/dL ABG Base Excess (-2.0-3.0) mmol/L ABG Hemoglobin (11.7-17.4) g/dL ABG Carboxyhemoglobin (0.5-1.5) % POC ABG HHb (Measured) (0.0-5.0) % ABG Methemoglobin (0.0-3.0) % ABG O2 Capacity (16-24) mL/dL Andry Test A-a O2 Difference mm/Hg Hgb O2 Saturation (95.0-98.0) % Vent Mode Mechanical Rate FiO2 % Tidal Volume PEEP Sodium (132-148) mmol/l Potassium (3.6-5.0) MMOL/L Chloride (98-107) mmol/L Carbon Dioxide (22-30) mmol/L Anion Gap (10-20) BUN (9-20) mg/dl Creatinine (0.8-1.5) mg/dl Est GFR ( Amer) Est GFR (Non-Af Amer) POC Glucose (mg/dL) 117 H (65-110) mg/dL Random Glucose (75-110) mg/dL Calcium (8.4-10.2) mg/dL Laboratory Results - last 24 hr 09/19/17 09/19/17 09/20/17 15:37 21:12 04:48 WBC RBC Hgb Hct MCV MCH MCHC RDW Plt Count pCO2 46 H pO2 86 HCO3 28.7 H ABG pH 7.42 ABG Total CO2 31.2 H ABG O2 Saturation 99.4 H ABG O2 Content 11.0 L ABG Base Excess 4.8 H ABG Hemoglobin 8.0 L ABG Carboxyhemoglobin 1.8 H POC ABG HHb (Measured) 0.6 ABG Methemoglobin 0.7 ABG O2 Capacity 11.1 L Andry Test Yes A-a O2 Difference 213.0 Hgb O2 Saturation 96.8 Vent Mode A/c Mechanical Rate 12 FiO2 50.0 Tidal Volume 450 PEEP 3 Sodium Potassium Chloride Carbon Dioxide Anion Gap BUN Creatinine Est GFR ( Amer) Est GFR (Non-Af Amer) POC Glucose (mg/dL) 117 H 116 H Random Glucose Calcium 09/20/17 09/20/17 09/20/17 05:30 05:30 05:51 WBC 13.0 H D RBC 2.76 L Hgb 7.7 L Hct 24.7 L MCV 89.5 MCH 27.8 MCHC 31.1 L RDW 18.5 H Plt Count 185 pCO2 pO2 HCO3 ABG pH ABG Total CO2 ABG O2 Saturation ABG O2 Content ABG Base Excess ABG Hemoglobin ABG Carboxyhemoglobin POC ABG HHb (Measured) ABG Methemoglobin ABG O2 Capacity Andry Test A-a O2 Difference Hgb O2 Saturation Vent Mode Mechanical Rate FiO2 Tidal Volume PEEP Sodium 147 Potassium 5.0 Chloride 109 H Carbon Dioxide 29 Anion Gap 14 BUN 70 H Creatinine 2.4 H Est GFR ( Amer) 33 Est GFR (Non-Af Amer) 27 POC Glucose (mg/dL) 139 H Random Glucose 148 H Calcium 8.3 L 09/20/17 12:00 WBC RBC Hgb Hct MCV MCH MCHC RDW Plt Count pCO2 pO2 HCO3 ABG pH ABG Total CO2 ABG O2 Saturation ABG O2 Content ABG Base Excess ABG Hemoglobin ABG Carboxyhemoglobin POC ABG HHb (Measured) ABG Methemoglobin ABG O2 Capacity Andry Test A-a O2 Difference Hgb O2 Saturation Vent Mode Mechanical Rate FiO2 Tidal Volume PEEP Sodium Potassium Chloride Carbon Dioxide Anion Gap BUN Creatinine Est GFR ( Amer) Est GFR (Non-Af Amer) POC Glucose (mg/dL) 149 H Random Glucose Calcium Fingerstick Blood Sugar Results: 139 Assessment/Plan - Assessment and Plan (Free Text) Assessment: 1- s/p Cardiac Arrest and sever brain anoxic injury: Prolonged arrest before achieving ROSC; Overall very poor prognosis for quality of life; re-instating DNR is very reasonable decision for patient who has no family that can be contacted as any further aggressive measures are likely futile; if patient has suffered acute kidney injury on top of already advanced CKD, would not pursue hemodialysis; 2- Hyperkalemia - Improved, K is 5.0 and has good urine output. 3- CKD IIIB/IV - Progressively worsening renal function with severe nephrotic syndrome; cannot tolerate KEVIN blockade due to hyperkalemia; continue to maintain adequate BP control; Efficiency [employer] Blasting is 2.4 today,was 2.5 yesterday. 4- Hypertensive CKD -BP well controlled, not on any pressors and also not on any BP meds at the moment. 5- Anemia of CKD - Hgb below goal; iron sat low; restarted EPO this week; will give IV iron; 6- CKD Mineral Bone Disease - Phos elevated; patient should be started on tube feeds with nepro; hold phos binders for now; 7-Pleural effusion: recurrent: left CT draing.
[2017-09-20] MEDS: Acetaminophen 650mg/20.3ml solution UD PO PRN (13:57)
--- NOTE | 2017-09-20 23:21 | CP.PCM.PN ---
Subjective - Date & Time of Evaluation Date of Evaluation: 09/20/17 Time of Evaluation: 12:30 - Subjective Subjective: Patient remains vented, now off pressors; unresponsive per nursing staff; started on tube feed with suplena at 50 cc/hr; Objective - Vital Signs/Intake and Output Vital Signs (last 24 hours): Temp Pulse Resp BP Pulse Ox 99.2 F 110 H 16 170/64 H 100 09/20/17 20:00 09/20/17 22:00 09/20/17 22:00 09/20/17 22:00 09/20/17 22:00 Intake and Output: 09/20/17 09/21/17 18:59 06:59 Intake Total 964 294 Output Total 960 Balance 4 294 - Medications Medications: Current Medications Acetaminophen (Tylenol 650mg/20.3ml Solution Ud) 650 mg PO Q4 PRN PRN Reason: for Temp. of 100.5 and above Last Admin: 09/20/17 13:57 Dose: 650 mg Albuterol/Ipratropium (Duoneb 3 Mg/0.5 Mg (3 Ml) Ud) 3 ml INH RQ4 [facility] Last Admin: 09/20/17 23:20 Dose: 3 ml Amlodipine Besylate (Norvasc) 10 mg PO DAILY [facility] Last Admin: 09/18/17 09:12 Dose: 10 mg Bumetanide (Bumex) 1 mg PO BID [facility] Last Admin: 09/20/17 17:20 Dose: 1 mg Calcitriol (Rocaltrol) 0.25 mcg PO FRI [facility] Last Admin: 09/19/17 09:41 Dose: Not Given Calcium Acetate (Phoslo) 1,334 mg PO WM [facility] Last Admin: 09/20/17 18:00 Dose: 1,334 mg Diltiazem HCl (Cardizem Cd) 360 mg PO DAILY [facility] Last Admin: 09/18/17 08:48 Dose: 360 mg Doxazosin Mesylate (Cardura) 1 mg PO HS [facility] Epoetin Roel (Procrit) 4,000 unit SC MWF [facility] Last Admin: 09/19/17 09:40 Dose: 4,000 unit Ergocalciferol (Drisdol 50,000 Intl Units Cap) 1 cap PO Q7D [facility] Heparin Sodium (Porcine) (Heparin) 5,000 units SC Q8 [facility] PRN Reason: Protocol Last Admin: 09/20/17 17:22 Dose: 5,000 units Hydralazine HCl (Apresoline) 100 mg PO Q8 [facility] Last Admin: 09/19/17 01:03 Dose: 100 mg Lactic Acid (Lac-Hydrin 12% Lotion (225 G)) 1 applic TOP TID [facility] Last Admin: 09/20/17 17:23 Dose: 1 applic Levetiracetam (Keppra) 500 mg PO BID [facility] Last Admin: 09/20/17 17:23 Dose: 500 mg Levothyroxine Sodium (Synthroid) 50 mcg PO DAILY@0630 [facility] Last Admin: 09/20/17 05:58 Dose: 50 mcg Lidocaine (Lidoderm) 1 ea TD DAILY [facility] Last Admin: 09/18/17 08:49 Dose: 1 ea Mirtazapine (Remeron) 30 mg PO HS [facility] Last Admin: 09/18/17 22:17 Dose: 30 mg Morphine Sulfate (Morphine Immediate Release Tab) 15 mg PO Q6 [facility] Last Admin: 09/19/17 03:50 Dose: 15 mg - Labs Labs: 09/20/17 05:30 09/20/17 05:30 PT 12.1 Seconds (9.8-13.1) 09/19/17 09:11 INR 1.1 (0.9-1.2) 09/19/17 09:11 APTT 34.2 Seconds (25.6-37.1) 07/18/17 05:30 - Constitutional Appears: Chronically Ill - Eye Exam Eye Exam: absent: Scleral icterus - ENT Exam ENT Exam: Mucous Membranes Moist - Respiratory Exam Respiratory Exam: absent: Respiratory Distress - Cardiovascular Exam Cardiovascular Exam: RRR, +S1, +S2 - GI/Abdominal Exam GI & Abdominal Exam: Soft. absent: Distended - Exam Exam: absent: Bladder Distension - Extremities Exam Additional comments: mild leg edema b/l - Neurological Exam Additional comments: minimal responsiveness to noxious stimuli - Skin Skin Exam: Warm. absent: Cyanosis Assessment and Plan (1) Hyperkalemia Assessment & Plan: Stable, monitor; on low K feeds (getting about 1g per day with suplena); Status: Acute (2) Malnutrition Status: Acute (3) Hypertensive CKD (chronic kidney disease) Assessment & Plan: Off pressors, anti-htn agents not yet started except for diuretics; can start gradually; Status: Chronic (4) Chronic kidney disease, stage 3 (moderate) Assessment & Plan: CKD IIIB/IV with 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; poor overall prognosis; relatively stable renal function despite cardiac arrest; continue adequate anti- htn control; Status: Chronic (5) Acute renal failure Status: Resolved (6) Nephrotic syndrome Status: Chronic (7) Pleural effusion Assessment & Plan: L pigtail catheter still draining; stable FIO2 requirement; monitor; Status: Chronic (8) Hypothermia Status: Acute (9) Altered mental status Status: Acute (10) SIRS (systemic inflammatory response syndrome) Status: Acute (11) Anemia Assessment & Plan: Hgb dropping, increasing EPO to 10,000 u qMWF; starting IV iron loading ( venofer 100 mg daily x 10 days); Status: Chronic (12) Monoclonal gammopathy Status: Chronic (13) Hypernatremia Status: Acute (14) Chronic kidney disease-mineral and bone disorder Assessment & Plan: On calcitriol 0.25 mcg weekly, continue; check PTH monthly, phos periodically; Status: Chronic
[2017-09-21] MEDS: Acetaminophen 650mg/20.3ml solution UD PO PRN (00:07)
[2017-09-21] MEDS: Albuterol-Ipratrop 3 mg / 0.5 (3 ml) UD INH SCH ×6 (05:00→23:54)
[2017-09-21 06:00] LABS: HEMOGLOBIN 7.3 g/dL (12.0-18.0); MEAN CELL VOLUME 90.7 fl (80.0-94.0); MEAN CORPUSCULAR HEMOGLOBIN 27.6 pg (27.0-31.0); MEAN CORPUSCULAR HGB CONC 30.4 g/dL (33.0-37.0); RBC 2.65 Mil/uL (4.40-5.90); RED CELL DISTRIBUTION WIDTH 18.6 % (11.5-14.5); WHITE BLOOD COUNT 11.9 K/uL (4.8-10.8)
[2017-09-21 06:18] LABS: ALB/GLOB RATIO 0.7 (1.0-2.1); ALBUMIN 2.4 g/dL (3.5-5.0); CALCIUM 8.6 mg/dL (8.4-10.2)
[2017-09-21 06:31] LABS: ABG ALLEN TEST YES; ARTERIAL BLOOD GAS HCO3 29.3 mmol/L (21-28); ARTERIAL BLOOD GAS HEMOGLOBIN 7.4 g/dL (11.7-17.4); ARTERIAL BLOOD GAS O2 CAPACITY 10.7 mL/dL (16-24); ARTERIAL BLOOD GAS O2 CONTENT 10.7 ML/dL (15-23); ARTERIAL BLOOD GAS O2 SAT 99.9 % (95-98); ARTERIAL BLOOD GAS PCO2 50 mm/Hg (35-45); ARTERIAL BLOOD GAS PO2 171 mm/Hg (80-100); ARTERIAL BLOOD GAS TCO2 32.5 mmol/L (22-28)
[2017-09-21] MEDS: Levothyroxine 50 MCG TAB PO SCH (06:33)
--- NOTE | 2017-09-21 09:00 | RAD ---
HISTORY: vented COMPARISON: Comparison chest 09/20/2017 FINDINGS: In situ ETT, tip of which lies approximately 5.88 cm above endy. NGT tip overlies left upper quadrant of the abdomen. No change pigtail chest tube catheter overlying the left lung base. Left sided PICC line with tip in the SVC also unchanged LUNGS: Bilateral lower lobe atelectasis and or infiltrates with small to medium size residual left-sided effusion. PLEURA: No significant pleural effusion identified, no pneumothorax apparent. CARDIOVASCULAR: Stable OSSEOUS STRUCTURES: No significant abnormalities. VISUALIZED UPPER ABDOMEN: Normal. OTHER FINDINGS: None. IMPRESSION: Support lines and tubes as above. Bibasilar atelectasis and/or infiltrates and residual left-sided effusion
[2017-09-21] MEDS: levETIRAcetam 100 mg/ml (5ml) Oral Syringe PO SCH ×2 (09:17→17:45)
--- NOTE | 2017-09-21 10:25 | CP.CCUPN ---
CCU Subjective - Physician Review Events Since Last Encounter (Free Text): 09/21/17 10:23 No change in condition, still unresponsive and on vent. YUE is now high, was low and Meds were on hold, CCU Objective - Vital Signs / Intake & Output Vital Signs (Last 4 hours): Vital Signs Temp Pulse Resp BP Pulse Ox 09/21/17 08:00 98.4 F 95 H 12 158/56 H 100 Intake and Output (Last 8hrs): Intake & Output 09/20/17 09/21/17 09/21/17 22:59 06:59 14:59 Intake Total 704 542 110 Output Total 960 1180 Balance -256 -638 110 Weight 117 lb 6.4 oz Intake: IV 24 22 10 Tube Feeding 330 320 100 Free Water Flush 350 200 Output: Chest Tube Drainage 60 80 Left Lateral Chest 60 80 Urine 900 1100 Urethral (Salazar) 900 1100 Other: # Bowel Movements 1 1 - Physical Exam Narrative Physical Exam (Free Text): 09/21/17 10:24 P/E Neck: No JVD Lungs: Decreased breath sounds, bases, bilaterally Abdomen: soft, non-tender Ext: No edema heart: no gallop Head: Positive for: Atraumatic, Normocephalic Pupils: Positive for: PERRL Extroacular Muscles: Positive for: EOMI Conjunctiva: Negative for: Icteric Mouth: Positive for: Moist Mucous Membranes Nose (External): Negative for: Lesions Neck: Positive for: Normal Range of Motion (Supple ), Other (central line: left chest wall in place with dressing, clean and dry.) Respiratory/Chest: Positive for: Good Air Exchange, Rhonchi (Left basilar and mild lung rhonchi greater on the left than right ). Negative for: Respiratory Distress, Tachypneic Cardiovascular: Positive for: Regular Rate and Rhythm, Normal S1, S2. Negative for: Tachycardic, Bradycardic Abdomen: Negative for: Tenderness, Distention, Guarding Genitourinary Male: Positive for: Penile Swelling, Testicle Swelling Upper Extremity: Positive for: Edema (bilat upper extremity edema noted no change from previous exam but equal pulses bilaterally ), NORMAL PULSES, Capillary Refill < 2s Lower Extremity: Negative for: Edema, CALF TENDERNESS Neurological: Positive for: CN II-XII Intact Skin: Positive for: Warm, Dry, Other (supeficial abrasion of left hand healing well ) Psychiatric: Positive for: Alert, Oriented x 3 - Medications Active Medications: Active Medications Generic Name Dose Route Start Last Admin Trade Name Abbi PRN Reason Stop Dose Admin Acetaminophen 650 mg 09/20/17 13:37 09/21/17 00:07 Tylenol 650mg/20.3ml Solution Ud PO 650 mg Q4 PRN Administration for Temp. of 100.5 and above Albuterol/Ipratropium 3 ml 09/18/17 04:00 09/21/17 07:13 Duoneb 3 Mg/0.5 Mg (3 Ml) Ud INH 3 ml RQ4 [facility] Administration Amlodipine Besylate 10 mg 09/18/17 09:00 09/18/17 09:12 Norvasc PO 10 mg DAILY [facility] Administration Bumetanide 1 mg 09/18/17 09:00 09/20/17 17:20 Bumex PO 1 mg BID [facility] Administration Calcitriol 0.25 mcg 09/19/17 09:00 09/19/17 09:41 Rocaltrol PO Not Given FRI [facility] Calcium Acetate 1,334 mg 09/18/17 07:30 09/21/17 06:32 Phoslo PO 1,334 mg WM [facility] Administration Diltiazem HCl 360 mg 09/18/17 09:00 09/18/17 08:48 Cardizem Cd PO 360 mg DAILY [facility] Administration Doxazosin Mesylate 1 mg 09/18/17 22:00 Cardura PO HS [facility] Epoetin Roel 10,000 unit 09/22/17 09:00 Procrit SC MWF [facility] Ergocalciferol 1 cap 09/23/17 09:00 Drisdol 50,000 Intl Units Cap PO Q7D [facility] Heparin Sodium (Porcine) 5,000 units 09/18/17 01:00 09/21/17 09:17 Heparin SC 5,000 units Q8 [facility] Administration Protocol Hydralazine HCl 100 mg 09/18/17 09:00 09/19/17 01:03 Apresoline PO 100 mg Q8 [facility] Administration Iron Sucrose 100 mg/ Sodium 105 mls @ 105 mls/hr 09/21/17 09:00 09/21/17 10: 11 Chloride IVPB 10/01/17 09:01 105 mls/hr DAILY [facility] Administration Lactic Acid 1 applic 09/18/17 09:00 09/21/17 09:17 Lac-Hydrin 12% Lotion (225 G) TOP 1 applic TID [facility] Administration Levetiracetam 500 mg 09/18/17 09:00 09/21/17 09:17 Keppra PO 500 mg BID [facility] Administration Levothyroxine Sodium 50 mcg 09/18/17 06:30 09/21/17 06:33 Synthroid PO 50 mcg DAILY@0630 [facility] Administration Lidocaine 1 ea 09/18/17 09:00 09/18/17 08:49 Lidoderm TD 1 ea DAILY [facility] Administration Mirtazapine 30 mg 09/18/17 22:00 09/18/17 22:17 Remeron PO 30 mg HS [facility] Administration Morphine Sulfate 15 mg 09/18/17 04:00 09/19/17 03:50 Morphine Immediate Release Tab PO 15 mg Q6 [facility] Administration - Patient Studies Lab Studies: Microbiology Studies 09/19/17 09:55 Gram Stain - Final Trachasp Sputum Culture - Preliminary Gram Negative Diaz 09/19/17 19:02 Urine Culture - Final Urine,Salazar No Growth (<1,000 CFU/ML) Lab Studies 09/21/17 09/21/17 09/21/17 Range/Units 05:20 05:20 05:09 WBC 11.9 H (4.8-10.8) K/uL RBC 2.65 L (4.40-5.90) Mil/uL Hgb 7.3 L (12.0-18.0) g/dL Hct 24.0 L (35.0-51.0) % MCV 90.7 (80.0-94.0) fl MCH 27.6 (27.0-31.0) pg MCHC 30.4 L (33.0-37.0) g/dL RDW 18.6 H (11.5-14.5) % Plt Count 171 (130-400) K/uL pCO2 50 H (35-45) mm/Hg pO2 171 H (80-100) mm/Hg HCO3 29.3 H (21-28) mmol/L ABG pH 7.40 (7.35-7.45) ABG Total CO2 32.5 H (22-28) mmol/L ABG O2 Saturation 99.9 H (95-98) % ABG O2 Content 10.7 L (15-23) ML/dL ABG Base Excess 5.6 H (-2.0-3.0) mmol/L ABG Hemoglobin 7.4 L (11.7-17.4) g/dL ABG Carboxyhemoglobin 1.2 (0.5-1.5) % POC ABG HHb (Measured) 0.1 (0.0-5.0) % ABG Methemoglobin 0.3 (0.0-3.0) % ABG O2 Capacity 10.7 L (16-24) mL/dL Andry Test Yes A-a O2 Difference 123.0 mm/Hg Hgb O2 Saturation 98.5 H (95.0-98.0) % Vent Mode A/c Mechanical Rate 12 FiO2 50.0 % Tidal Volume 450 PEEP 3 Sodium 149 H (132-148) mmol/l Potassium 4.6 (3.6-5.0) MMOL/L Chloride 110 H (98-107) mmol/L Carbon Dioxide 30 (22-30) mmol/L Anion Gap 14 (10-20) BUN 68 H (9-20) mg/dl Creatinine 2.4 H (0.8-1.5) mg/dl Est GFR ( Amer) 33 Est GFR (Non-Af Amer) 27 POC Glucose (mg/dL) (65-110) mg/dL Random Glucose 198 H (75-110) mg/dL Calcium 8.6 (8.4-10.2) mg/dL Total Bilirubin 0.3 (0.2-1.3) mg/dl AST 23 (17-59) U/L ALT 38 (21-72) U/L Alkaline Phosphatase 230 H D (38-126) U/L Total Protein 5.6 L (6.3-8.2) G/DL Albumin 2.4 L (3.5-5.0) g/dL Globulin 3.3 (2.2-3.9) gm/dL Albumin/Globulin Ratio 0.7 L (1.0-2.1) 09/21/17 09/20/17 09/20/17 Range/Units 04:31 21:17 16:49 WBC (4.8-10.8) K/uL RBC (4.40-5.90) Mil/uL Hgb (12.0-18.0) g/dL Hct (35.0-51.0) % MCV (80.0-94.0) fl MCH (27.0-31.0) pg MCHC (33.0-37.0) g/dL RDW (11.5-14.5) % Plt Count (130-400) K/uL pCO2 (35-45) mm/Hg pO2 (80-100) mm/Hg HCO3 (21-28) mmol/L ABG pH (7.35-7.45) ABG Total CO2 (22-28) mmol/L ABG O2 Saturation (95-98) % ABG O2 Content (15-23) ML/dL ABG Base Excess (-2.0-3.0) mmol/L ABG Hemoglobin (11.7-17.4) g/dL ABG Carboxyhemoglobin (0.5-1.5) % POC ABG HHb (Measured) (0.0-5.0) % ABG Methemoglobin (0.0-3.0) % ABG O2 Capacity (16-24) mL/dL Andry Test A-a O2 Difference mm/Hg Hgb O2 Saturation (95.0-98.0) % Vent Mode Mechanical Rate FiO2 % Tidal Volume PEEP Sodium (132-148) mmol/l Potassium (3.6-5.0) MMOL/L Chloride (98-107) mmol/L Carbon Dioxide (22-30) mmol/L Anion Gap (10-20) BUN (9-20) mg/dl Creatinine (0.8-1.5) mg/dl Est GFR ( Amer) Est GFR (Non-Af Amer) POC Glucose (mg/dL) 210 H 130 H 173 H (65-110) mg/dL Random Glucose (75-110) mg/dL Calcium (8.4-10.2) mg/dL Total Bilirubin (0.2-1.3) mg/dl AST (17-59) U/L ALT (21-72) U/L Alkaline Phosphatase (38-126) U/L Total Protein (6.3-8.2) G/DL Albumin (3.5-5.0) g/dL Globulin (2.2-3.9) gm/dL Albumin/Globulin Ratio (1.0-2.1) 03/24/18 Range/Units 12:00 WBC (4.8-10.8) K/uL RBC (4.40-5.90) Mil/uL Hgb (12.0-18.0) g/dL Hct (35.0-51.0) % MCV (80.0-94.0) fl MCH (27.0-31.0) pg MCHC (33.0-37.0) g/dL RDW (11.5-14.5) % Plt Count (130-400) K/uL pCO2 (35-45) mm/Hg pO2 (80-100) mm/Hg HCO3 (21-28) mmol/L ABG pH (7.35-7.45) ABG Total CO2 (22-28) mmol/L ABG O2 Saturation (95-98) % ABG O2 Content (15-23) ML/dL ABG Base Excess (-2.0-3.0) mmol/L ABG Hemoglobin (11.7-17.4) g/dL ABG Carboxyhemoglobin (0.5-1.5) % POC ABG HHb (Measured) (0.0-5.0) % ABG Methemoglobin (0.0-3.0) % ABG O2 Capacity (16-24) mL/dL Andry Test A-a O2 Difference mm/Hg Hgb O2 Saturation (95.0-98.0) % Vent Mode Mechanical Rate FiO2 % Tidal Volume PEEP Sodium (132-148) mmol/l Potassium (3.6-5.0) MMOL/L Chloride (98-107) mmol/L Carbon Dioxide (22-30) mmol/L Anion Gap (10-20) BUN (9-20) mg/dl Creatinine (0.8-1.5) mg/dl Est GFR ( Amer) Est GFR (Non-Af Amer) POC Glucose (mg/dL) 149 H (65-110) mg/dL Random Glucose (75-110) mg/dL Calcium (8.4-10.2) mg/dL Total Bilirubin (0.2-1.3) mg/dl AST (17-59) U/L ALT (21-72) U/L Alkaline Phosphatase (38-126) U/L Total Protein (6.3-8.2) G/DL Albumin (3.5-5.0) g/dL Globulin (2.2-3.9) gm/dL Albumin/Globulin Ratio (1.0-2.1) Laboratory Results - last 24 hr 09/20/17 09/20/17 09/20/17 12:00 16:49 21:17 WBC RBC Hgb Hct MCV MCH MCHC RDW Plt Count pCO2 pO2 HCO3 ABG pH ABG Total CO2 ABG O2 Saturation ABG O2 Content ABG Base Excess ABG Hemoglobin ABG Carboxyhemoglobin POC ABG HHb (Measured) ABG Methemoglobin ABG O2 Capacity Andry Test A-a O2 Difference Hgb O2 Saturation Vent Mode Mechanical Rate FiO2 Tidal Volume PEEP Sodium Potassium Chloride Carbon Dioxide Anion Gap BUN Creatinine Est GFR ( Amer) Est GFR (Non-Af Amer) POC Glucose (mg/dL) 149 H 173 H 130 H Random Glucose Calcium Total Bilirubin AST ALT Alkaline Phosphatase Total Protein Albumin Globulin Albumin/Globulin Ratio 09/21/17 09/21/17 09/21/17 04:31 05:09 05:20 WBC 11.9 H RBC 2.65 L Hgb 7.3 L Hct 24.0 L MCV 90.7 MCH 27.6 MCHC 30.4 L RDW 18.6 H Plt Count 171 pCO2 50 H pO2 171 H HCO3 29.3 H ABG pH 7.40 ABG Total CO2 32.5 H ABG O2 Saturation 99.9 H ABG O2 Content 10.7 L ABG Base Excess 5.6 H ABG Hemoglobin 7.4 L ABG Carboxyhemoglobin 1.2 POC ABG HHb (Measured) 0.1 ABG Methemoglobin 0.3 ABG O2 Capacity 10.7 L Andry Test Yes A-a O2 Difference 123.0 Hgb O2 Saturation 98.5 H Vent Mode A/c Mechanical Rate 12 FiO2 50.0 Tidal Volume 450 PEEP 3 Sodium Potassium Chloride Carbon Dioxide Anion Gap BUN Creatinine Est GFR ( Amer) Est GFR (Non-Af Amer) POC Glucose (mg/dL) 210 H Random Glucose Calcium Total Bilirubin AST ALT Alkaline Phosphatase Total Protein Albumin Globulin Albumin/Globulin Ratio 09/21/17 05:20 WBC RBC Hgb Hct MCV MCH MCHC RDW Plt Count pCO2 pO2 HCO3 ABG pH ABG Total CO2 ABG O2 Saturation ABG O2 Content ABG Base Excess ABG Hemoglobin ABG Carboxyhemoglobin POC ABG HHb (Measured) ABG Methemoglobin ABG O2 Capacity Andry Test A-a O2 Difference Hgb O2 Saturation Vent Mode Mechanical Rate FiO2 Tidal Volume PEEP Sodium 149 H Potassium 4.6 Chloride 110 H Carbon Dioxide 30 Anion Gap 14 BUN 68 H Creatinine 2.4 H Est GFR ( Amer) 33 Est GFR (Non-Af Amer) 27 POC Glucose (mg/dL) Random Glucose 198 H Calcium 8.6 Total Bilirubin 0.3 AST 23 ALT 38 Alkaline Phosphatase 230 H D Total Protein 5.6 L Albumin 2.4 L Globulin 3.3 Albumin/Globulin Ratio 0.7 L Fingerstick Blood Sugar Results: 210 Assessment/Plan - Assessment and Plan (Free Text) Assessment: 1- s/p Cardiac Arrest and sever brain anoxic injury: Prolonged arrest before achieving ROSC; Overall very poor prognosis for quality of life; re-instating DNR is very reasonable decision for patient who has no family that can be contacted as any further aggressive measures are likely futile; if patient has suffered acute kidney injury on top of already advanced CKD, would not pursue hemodialysis; No indications for HD at this point. 2- Hyperkalemia - Improved, 3- CKD IIIB/IV - Progressively worsening renal function with severe nephrotic syndrome; cannot tolerate KEVIN blockade due to hyperkalemia; continue to maintain adequate BP control; Scallop Dredger is 2.4 today,was 2.4 yesterday. 4- Hypertensive CKD -Bp was low after card arrest, was on multiple meds, BP is high again today 166/67, will start Amlodipine 10 mg, if needed other meds will added. 5- Anemia of CKD - Hgb stabe, 7.3; 6- Hypenatremia: Mild , 149, will monitor, will start free water or IVF d5w if clare to > 150 7-Pleural effusion: recurrent: left CT draing.
--- NOTE | 2017-09-21 12:46 | CP.PCM.PN ---
Subjective - Date & Time of Evaluation Date of Evaluation: 09/21/17 Time of Evaluation: 10:00 - Subjective Subjective: Pt seen and examined at bedside. Unresponsive to verbal or tactile stimulation. No pupillary reflex. Intubated on vent. Objective - Vital Signs/Intake and Output Vital Signs (last 24 hours): Temp Pulse Resp BP Pulse Ox 98.4 F 95 H 12 168/59 H 100 09/21/17 08:00 09/21/17 10:00 09/21/17 10:00 09/21/17 10:00 09/21/17 10:00 Intake and Output: 09/21/17 09/21/17 06:59 18:59 Intake Total 836 400 Output Total 1180 Balance -344 400 - Medications Medications: Current Medications Acetaminophen (Tylenol 650mg/20.3ml Solution Ud) 650 mg PO Q4 PRN PRN Reason: for Temp. of 100.5 and above Last Admin: 09/21/17 00:07 Dose: 650 mg Albuterol/Ipratropium (Duoneb 3 Mg/0.5 Mg (3 Ml) Ud) 3 ml INH RQ4 [facility] Last Admin: 09/21/17 11:08 Dose: 3 ml Amlodipine Besylate (Norvasc) 10 mg PO DAILY [facility] Last Admin: 09/18/17 09:12 Dose: 10 mg Bumetanide (Bumex) 1 mg PO BID [facility] Last Admin: 09/20/17 17:20 Dose: 1 mg Calcitriol (Rocaltrol) 0.25 mcg PO FRI [facility] Last Admin: 09/19/17 09:41 Dose: Not Given Calcium Acetate (Phoslo) 1,334 mg PO WM [facility] Last Admin: 09/21/17 06:32 Dose: 1,334 mg Diltiazem HCl (Cardizem Cd) 360 mg PO DAILY [facility] Last Admin: 09/18/17 08:48 Dose: 360 mg Doxazosin Mesylate (Cardura) 1 mg PO HS [facility] Epoetin Roel (Procrit) 10,000 unit SC MWF [facility] Ergocalciferol (Drisdol 50,000 Intl Units Cap) 1 cap PO Q7D [facility] Heparin Sodium (Porcine) (Heparin) 5,000 units SC Q8 [facility] PRN Reason: Protocol Last Admin: 09/21/17 09:17 Dose: 5,000 units Hydralazine HCl (Apresoline) 100 mg PO Q8 [facility] Last Admin: 09/19/17 01:03 Dose: 100 mg Iron Sucrose 100 mg/ Sodium (Chloride) 105 mls @ 105 mls/hr IVPB DAILY [facility] Stop: 10/01/17 09:01 Last Admin: 09/21/17 10:11 Dose: 105 mls/hr Lactic Acid (Lac-Hydrin 12% Lotion (225 G)) 1 applic TOP TID [facility] Last Admin: 09/21/17 09:17 Dose: 1 applic Levetiracetam (Keppra) 500 mg PO BID [facility] Last Admin: 09/21/17 09:17 Dose: 500 mg Levothyroxine Sodium (Synthroid) 50 mcg PO DAILY@0630 [facility] Last Admin: 09/21/17 06:33 Dose: 50 mcg Lidocaine (Lidoderm) 1 ea TD DAILY [facility] Last Admin: 09/18/17 08:49 Dose: 1 ea Mirtazapine (Remeron) 30 mg PO HS [facility] Last Admin: 09/18/17 22:17 Dose: 30 mg Morphine Sulfate (Morphine Immediate Release Tab) 15 mg PO Q6 [facility] Last Admin: 09/19/17 03:50 Dose: 15 mg - Labs Labs: 09/21/17 05:20 09/21/17 05:20 PT 12.1 Seconds (9.8-13.1) 09/19/17 09:11 INR 1.1 (0.9-1.2) 09/19/17 09:11 APTT 34.2 Seconds (25.6-37.1) 07/18/17 05:30 - Constitutional Appears: Other (Comatose Glascow Coma Scale 3) - Head Exam Head Exam: ATRAUMATIC - Eye Exam Eye Exam: absent: PERRL - ENT Exam ENT Exam: Mucous Membranes Moist - Respiratory Exam Respiratory Exam: Rales. absent: Wheezes Additional comments: Pleural effusion draining via chest tube, Left chest wall - Cardiovascular Exam Cardiovascular Exam: REGULAR RHYTHM, +S1, +S2. absent: Murmur - GI/Abdominal Exam GI & Abdominal Exam: Soft. absent: Distended Additional comments: On tube feeding. - Extremities Exam Extremities Exam: Pedal Edema Additional comments: Upper and lower extremities pitting edema (hands and feet) - Neurological Exam Neurological Exam: absent: Alert, Awake Assessment and Plan - Assessment and Plan (Free Text) Assessment: 67M, homeless, with profound health issues that are currently stabilized with a multitude of medications to include oxygen. Pt now comatose s/p cardiac arrest on 09/19. Intubated on ventilation. Plan: Given Pt's limited life expectancy and poor quality of life, the decision to re- instate his DNR/DNI status via 2 physician sign off was made. Currently off pressors. Tube Feeding w/ low K. Hg dropping, IV Venofer started as per nephrology. Pleural effusions s/p chest tube, currently draining. Repeat Cxray shows today bibasilar infiltrates with Lsided peural effusion Comfort care as ordered Continue with all current medications as ordered. Cardizem held. DNR/DNI
[2017-09-22] MEDS: Albuterol-Ipratrop 3 mg / 0.5 (3 ml) UD INH SCH ×6 (04:50→23:58)
[2017-09-22 05:08] LABS: ABG ALLEN TEST YES; ARTERIAL BLOOD GAS HCO3 29.8 mmol/L (21-28); ARTERIAL BLOOD GAS HEMOGLOBIN 8.6 g/dL (11.7-17.4); ARTERIAL BLOOD GAS O2 CONTENT 11.9 ML/dL (15-23); ARTERIAL BLOOD GAS O2 SAT 99.4 % (95-98); ARTERIAL BLOOD GAS PCO2 50 mm/Hg (35-45); ARTERIAL BLOOD GAS PH 7.41 (7.35-7.45); ARTERIAL BLOOD GAS PO2 91 mm/Hg (80-100); ARTERIAL BLOOD GAS TCO2 33.2 mmol/L (22-28)
[2017-09-22 05:33] LABS: HEMOGLOBIN 8.2 g/dL (12.0-18.0); MEAN CELL VOLUME 89.8 fl (80.0-94.0); MEAN CORPUSCULAR HEMOGLOBIN 28.3 pg (27.0-31.0); MEAN CORPUSCULAR HGB CONC 31.5 g/dL (33.0-37.0); RBC 2.89 Mil/uL (4.40-5.90); RED CELL DISTRIBUTION WIDTH 18.7 % (11.5-14.5); WHITE BLOOD COUNT 10.2 K/uL (4.8-10.8)
[2017-09-22] MEDS: Levothyroxine 50 MCG TAB PO SCH (06:33)
--- NOTE | 2017-09-22 08:38 | RAD ---
HISTORY: vented COMPARISON: Portable chest 09/21/2017. FINDINGS: Endotracheal and nasogastric tubes appear unchanged in position. LUNGS: Limited patchy atelectasis or infiltrate seen the left base once again, unchanged. None is identified at the right. PLEURA: No pneumothorax bilaterally or right pleural effusion. Stable minimal left pleural effusion. Left pleural drainage catheter in position once again. CARDIOVASCULAR: Normal. OSSEOUS STRUCTURES: No significant abnormalities. VISUALIZED UPPER ABDOMEN: Normal. OTHER FINDINGS: None. IMPRESSION: Stable minimal left pleural effusion as well as likely atelectasis or infiltrate at the left base. Remaining lung culver clear.
[2017-09-22] MEDS: levETIRAcetam 100 mg/ml (5ml) Oral Syringe PO SCH ×2 (08:43→18:00)
[2017-09-22 08:52] LABS: ALB/GLOB RATIO 0.7 (1.0-2.1); ALBUMIN 2.6 g/dL (3.5-5.0); CALCIUM 9.2 mg/dL (8.4-10.2)
[2017-09-22] MEDS ORDERED: EPOETIN ALFA 10,000 UNIT/ML ML SC SCH (09:00)
--- NOTE | 2017-09-22 12:41 | CP.PCM.PN ---
Subjective - Date & Time of Evaluation Date of Evaluation: 09/22/17 Time of Evaluation: 08:00 - Subjective Subjective: Pt seen and examined at bedside. Unresponsive to verbal or tactile stimulation. No pupillary reflex. Intubated on vent. Objective - Vital Signs/Intake and Output Vital Signs (last 24 hours): Temp Pulse Resp BP Pulse Ox 99.8 F H 97 H 13 146/74 100 09/22/17 12:00 09/22/17 12:00 09/22/17 12:00 09/22/17 12:00 09/22/17 12:00 Intake and Output: 09/22/17 09/22/17 06:59 18:59 Intake Total 771 80 Output Total 1450 Balance -679 80 - Medications Medications: Current Medications Acetaminophen (Tylenol 650mg/20.3ml Solution Ud) 650 mg PO Q4 PRN PRN Reason: for Temp. of 100.5 and above Last Admin: 09/21/17 00:07 Dose: 650 mg Albuterol/Ipratropium (Duoneb 3 Mg/0.5 Mg (3 Ml) Ud) 3 ml INH RQ4 [facility] Last Admin: 09/22/17 11:10 Dose: 3 ml Amlodipine Besylate (Norvasc) 10 mg PO DAILY [facility] Last Admin: 09/22/17 08:52 Dose: 10 mg Bumetanide (Bumex) 1 mg PO BID [facility] Last Admin: 09/20/17 17:20 Dose: 1 mg Calcitriol (Rocaltrol) 0.25 mcg PO FRI [facility] Last Admin: 09/19/17 09:41 Dose: Not Given Calcium Acetate (Phoslo) 1,334 mg PO WM [facility] Last Admin: 09/22/17 12:09 Dose: 1,334 mg Diltiazem HCl (Cardizem Cd) 360 mg PO DAILY [facility] Last Admin: 09/18/17 08:48 Dose: 360 mg Doxazosin Mesylate (Cardura) 1 mg PO HS [facility] Epoetin Roel (Procrit) 10,000 unit SC MWF [facility] Last Admin: 09/22/17 08:49 Dose: 10,000 unit Ergocalciferol (Drisdol 50,000 Intl Units Cap) 1 cap PO Q7D [facility] Heparin Sodium (Porcine) (Heparin) 5,000 units SC Q8 [facility] PRN Reason: Protocol Last Admin: 09/22/17 08:44 Dose: 5,000 units Hydralazine HCl (Apresoline) 100 mg PO Q8 [facility] Last Admin: 09/19/17 01:03 Dose: 100 mg Iron Sucrose 100 mg/ Sodium (Chloride) 105 mls @ 105 mls/hr IVPB DAILY [facility] Stop: 10/01/17 09:01 Last Admin: 09/22/17 12:06 Dose: 105 mls/hr Lactic Acid (Lac-Hydrin 12% Lotion (225 G)) 1 applic TOP TID [facility] Last Admin: 09/22/17 12:10 Dose: 1 applic Levetiracetam (Keppra) 500 mg PO BID [facility] Last Admin: 09/22/17 08:43 Dose: 500 mg Levothyroxine Sodium (Synthroid) 50 mcg PO DAILY@0630 [facility] Last Admin: 09/22/17 06:33 Dose: 50 mcg Lidocaine (Lidoderm) 1 ea TD DAILY [facility] Last Admin: 09/18/17 08:49 Dose: 1 ea Mirtazapine (Remeron) 30 mg PO HS [facility] Last Admin: 09/18/17 22:17 Dose: 30 mg Morphine Sulfate (Morphine Immediate Release Tab) 15 mg PO Q6 [facility] Last Admin: 09/19/17 03:50 Dose: 15 mg - Labs Labs: 09/22/17 05:00 09/22/17 05:00 PT 12.1 Seconds (9.8-13.1) 09/19/17 09:11 INR 1.1 (0.9-1.2) 09/19/17 09:11 APTT 34.2 Seconds (25.6-37.1) 07/18/17 05:30 - Constitutional Appears: Other (Comatose GCS 3) - Head Exam Head Exam: ATRAUMATIC, NORMAL INSPECTION - Eye Exam Eye Exam: Normal appearance Pupil Exam: absent: PERRL - ENT Exam ENT Exam: Mucous Membranes Moist - Respiratory Exam Respiratory Exam: Decreased Breath Sounds, Rales (Lef lower base). absent: Accessory Muscle Use, Wheezes Additional comments: Active chest rise, no signs of respiratory distress - Cardiovascular Exam Cardiovascular Exam: REGULAR RHYTHM, +S1, +S2. absent: Murmur - GI/Abdominal Exam GI & Abdominal Exam: Soft. absent: Distended, Tenderness - Extremities Exam Extremities Exam: Pedal Edema Additional comments: Pitting edema of hands and arms - Neurological Exam Neurological Exam: Alert, Awake, Oriented x3 Assessment and Plan - Assessment and Plan (Free Text) Assessment: 67M, homeless, with profound health issues that are currently stabilized with a multitude of medications to include oxygen. Pt now comatose s/p cardiac arrest on 09/19. Intubated on ventilation. Plan: Given Pt's limited life expectancy and poor quality of life, the decision to re- instate his DNR/DNI status via 2 physician sign off was made. Currently off pressors. Tube Feeding w/ low K. Hg dropping, IV Venofer started as per nephrology. Pleural effusions s/p chest tube, currently draining. Repeat Cxray shows today bibasilar infiltrates with Lsided peural effusion Comfort care as ordered Continue with all current medications as ordered. Norvasc started today for rising BP's. Will attempt to reach pt's person of contact (multiple attempts have been made in past with no success)
--- NOTE | 2017-09-22 15:04 | CP.CCUPN ---
CCU Subjective - Physician Review Events Since Last Encounter (Free Text): 09/22/17 18:37 The patient was Seen/interviewed and examined by me at the bedside during ICU round, Medical records reviewed and Management issues were discussed and formulated with the house staff. Events reviewed No change in condition, still unresponsive and on vent. YUE is now high, was low and Meds were on hold Patient unresponsive to painful stimuli CCU Objective - Vital Signs / Intake & Output Vital Signs (Last 4 hours): Vital Signs Temp Pulse Resp BP Pulse Ox 09/22/17 12:00 99.8 F H 97 H 13 146/74 100 Intake and Output (Last 8hrs): Intake & Output 09/22/17 09/22/17 09/22/17 06:59 14:59 22:59 Intake Total 492 400 Output Total 1450 Balance -958 400 Weight 109 lb 12.8 oz Intake: IV 22 Tube Feeding 320 200 Free Water Flush 150 200 Output: Chest Tube Drainage 250 Left Lateral Chest 250 Urine 1200 Urethral (Salazar) 1200 Other: # Bowel Movements 1 1 - Physical Exam Head: Positive for: Atraumatic, Normocephalic Pupils: Positive for: PERRL Extroacular Muscles: Positive for: EOMI Conjunctiva: Negative for: Icteric Mouth: Positive for: Moist Mucous Membranes Nose (External): Negative for: Lesions Neck: Positive for: Normal Range of Motion (Supple ), Other (central line: left chest wall in place with dressing, clean and dry.) Respiratory/Chest: Positive for: Good Air Exchange, Rhonchi (Left basilar and mild lung rhonchi greater on the left than right ). Negative for: Respiratory Distress, Tachypneic Cardiovascular: Positive for: Regular Rate and Rhythm, Normal S1, S2. Negative for: Tachycardic, Bradycardic Abdomen: Negative for: Tenderness, Distention, Guarding Genitourinary Male: Positive for: Penile Swelling, Testicle Swelling Upper Extremity: Positive for: Edema (bilat upper extremity edema noted no change from previous exam but equal pulses bilaterally ), NORMAL PULSES, Capillary Refill < 2s Lower Extremity: Negative for: Edema, CALF TENDERNESS Neurological: Negative for: Speech Normal, Motor Func Grossly Intact Skin: Positive for: Warm, Dry, Other (supeficial abrasion of left hand healing well ) Psychiatric: Positive for: Other (Patient unresponsive to painful stimuli) - Medications Active Medications: Active Medications Generic Name Dose Route Start Last Admin Trade Name Freq PRN Reason Stop Dose Admin Acetaminophen 650 mg 09/20/17 13:37 09/21/17 00:07 Tylenol 650mg/20.3ml Solution Ud PO 650 mg Q4 PRN Administration for Temp. of 100.5 and above Albuterol/Ipratropium 3 ml 09/18/17 04:00 09/22/17 11:10 Duoneb 3 Mg/0.5 Mg (3 Ml) Ud INH 3 ml RQ4 [facility] Administration Amlodipine Besylate 10 mg 09/18/17 09:00 09/22/17 08:52 Norvasc PO 10 mg DAILY [facility] Administration Bumetanide 1 mg 09/18/17 09:00 09/20/17 17:20 Bumex PO 1 mg BID [facility] Administration Calcitriol 0.25 mcg 09/19/17 09:00 09/19/17 09:41 Rocaltrol PO Not Given FRI [facility] Calcium Acetate 1,334 mg 09/18/17 07:30 09/22/17 12:09 Phoslo PO 1,334 mg WM [facility] Administration Diltiazem HCl 360 mg 09/18/17 09:00 09/18/17 08:48 Cardizem Cd PO 360 mg DAILY [facility] Administration Doxazosin Mesylate 1 mg 09/18/17 22:00 Cardura PO HS [facility] Epoetin Roel 10,000 unit 09/22/17 09:00 09/22/17 08:49 Procrit SC 10,000 unit MWF [facility] Administration Ergocalciferol 1 cap 09/23/17 09:00 Drisdol 50,000 Intl Units Cap PO Q7D [facility] Heparin Sodium (Porcine) 5,000 units 09/18/17 01:00 09/22/17 08:44 Heparin SC 5,000 units Q8 [facility] Administration Protocol Hydralazine HCl 100 mg 09/18/17 09:00 09/19/17 01:03 Apresoline PO 100 mg Q8 [facility] Administration Iron Sucrose 100 mg/ Sodium 105 mls @ 105 mls/hr 09/21/17 09:00 09/22/17 12: 06 Chloride IVPB 10/01/17 09:01 105 mls/hr DAILY [facility] Administration Lactic Acid 1 applic 09/18/17 09:00 09/22/17 12:10 Lac-Hydrin 12% Lotion (225 G) TOP 1 applic TID [facility] Administration Levetiracetam 500 mg 09/18/17 09:00 09/22/17 08:43 Keppra PO 500 mg BID [facility] Administration Levothyroxine Sodium 50 mcg 09/18/17 06:30 09/22/17 06:33 Synthroid PO 50 mcg DAILY@0630 [facility] Administration Lidocaine 1 ea 09/18/17 09:00 09/18/17 08:49 Lidoderm TD 1 ea DAILY [facility] Administration Mirtazapine 30 mg 09/18/17 22:00 09/18/17 22:17 Remeron PO 30 mg HS [facility] Administration Morphine Sulfate 15 mg 09/18/17 04:00 09/19/17 03:50 Morphine Immediate Release Tab PO 15 mg Q6 [facility] Administration - Patient Studies Lab Studies: Microbiology Studies 09/19/17 09:55 Gram Stain - Final Trachasp Sputum Culture - Final Klebsiella Pneumoniae Ssp Pneu Lab Studies 09/22/17 09/22/17 09/22/17 Range/Units 11:35 05:03 05:00 WBC (4.8-10.8) K/uL RBC (4.40-5.90) Mil/uL Hgb (12.0-18.0) g/dL Hct (35.0-51.0) % MCV (80.0-94.0) fl MCH (27.0-31.0) pg MCHC (33.0-37.0) g/dL RDW (11.5-14.5) % Plt Count (130-400) K/uL pCO2 50 H (35-45) mm/Hg pO2 91 (80-100) mm/Hg HCO3 29.8 H (21-28) mmol/L ABG pH 7.41 (7.35-7.45) ABG Total CO2 33.2 H (22-28) mmol/L ABG O2 Saturation 99.4 H (95-98) % ABG O2 Content 11.9 L (15-23) ML/dL ABG Base Excess 6.2 H (-2.0-3.0) mmol/L ABG Hemoglobin 8.6 L (11.7-17.4) g/dL ABG Carboxyhemoglobin 1.7 H (0.5-1.5) % POC ABG HHb (Measured) 0.6 (0.0-5.0) % ABG Methemoglobin 0.9 (0.0-3.0) % ABG O2 Capacity 12.0 L (16-24) mL/dL Andry Test Yes A-a O2 Difference 132.0 mm/Hg Hgb O2 Saturation 96.8 (95.0-98.0) % Vent Mode A/c Mechanical Rate 12 FiO2 40.0 % Tidal Volume 450 PEEP 5 Sodium 148 (132-148) mmol/l Potassium 4.4 (3.6-5.0) MMOL/L Chloride 107 (98-107) mmol/L Carbon Dioxide 31 H (22-30) mmol/L Anion Gap 14 (10-20) BUN 58 H (9-20) mg/dl Creatinine 2.2 H (0.8-1.5) mg/dl Est GFR ( Amer) 36 Est GFR (Non-Af Amer) 30 POC Glucose (mg/dL) 200 H (65-110) mg/dL Random Glucose 164 H (75-110) mg/dL Calcium 9.2 (8.4-10.2) mg/dL Total Bilirubin 0.2 (0.2-1.3) mg/dl AST 35 (17-59) U/L ALT 28 (21-72) U/L Alkaline Phosphatase 273 H (38-126) U/L Total Protein 6.2 L (6.3-8.2) G/DL Albumin 2.6 L (3.5-5.0) g/dL Globulin 3.5 (2.2-3.9) gm/dL Albumin/Globulin Ratio 0.7 L (1.0-2.1) 09/22/17 09/22/17 09/21/17 Range/Units 05:00 04:21 21:03 WBC 10.2 (4.8-10.8) K/uL RBC 2.89 L (4.40-5.90) Mil/uL Hgb 8.2 L (12.0-18.0) g/dL Hct 26.0 L (35.0-51.0) % MCV 89.8 (80.0-94.0) fl MCH 28.3 (27.0-31.0) pg MCHC 31.5 L (33.0-37.0) g/dL RDW 18.7 H (11.5-14.5) % Plt Count 201 (130-400) K/uL pCO2 (35-45) mm/Hg pO2 (80-100) mm/Hg HCO3 (21-28) mmol/L ABG pH (7.35-7.45) ABG Total CO2 (22-28) mmol/L ABG O2 Saturation (95-98) % ABG O2 Content (15-23) ML/dL ABG Base Excess (-2.0-3.0) mmol/L ABG Hemoglobin (11.7-17.4) g/dL ABG Carboxyhemoglobin (0.5-1.5) % POC ABG HHb (Measured) (0.0-5.0) % ABG Methemoglobin (0.0-3.0) % ABG O2 Capacity (16-24) mL/dL Andry Test A-a O2 Difference mm/Hg Hgb O2 Saturation (95.0-98.0) % Vent Mode Mechanical Rate FiO2 % Tidal Volume PEEP Sodium (132-148) mmol/l Potassium (3.6-5.0) MMOL/L Chloride (98-107) mmol/L Carbon Dioxide (22-30) mmol/L Anion Gap (10-20) BUN (9-20) mg/dl Creatinine (0.8-1.5) mg/dl Est GFR ( Amer) Est GFR (Non-Af Amer) POC Glucose (mg/dL) 170 H 174 H (65-110) mg/dL Random Glucose (75-110) mg/dL Calcium (8.4-10.2) mg/dL Total Bilirubin (0.2-1.3) mg/dl AST (17-59) U/L ALT (21-72) U/L Alkaline Phosphatase (38-126) U/L Total Protein (6.3-8.2) G/DL Albumin (3.5-5.0) g/dL Globulin (2.2-3.9) gm/dL Albumin/Globulin Ratio (1.0-2.1) 09/21/17 Range/Units 17:00 WBC (4.8-10.8) K/uL RBC (4.40-5.90) Mil/uL Hgb (12.0-18.0) g/dL Hct (35.0-51.0) % MCV (80.0-94.0) fl MCH (27.0-31.0) pg MCHC (33.0-37.0) g/dL RDW (11.5-14.5) % Plt Count (130-400) K/uL pCO2 (35-45) mm/Hg pO2 (80-100) mm/Hg HCO3 (21-28) mmol/L ABG pH (7.35-7.45) ABG Total CO2 (22-28) mmol/L ABG O2 Saturation (95-98) % ABG O2 Content (15-23) ML/dL ABG Base Excess (-2.0-3.0) mmol/L ABG Hemoglobin (11.7-17.4) g/dL ABG Carboxyhemoglobin (0.5-1.5) % POC ABG HHb (Measured) (0.0-5.0) % ABG Methemoglobin (0.0-3.0) % ABG O2 Capacity (16-24) mL/dL Andry Test A-a O2 Difference mm/Hg Hgb O2 Saturation (95.0-98.0) % Vent Mode Mechanical Rate FiO2 % Tidal Volume PEEP Sodium (132-148) mmol/l Potassium (3.6-5.0) MMOL/L Chloride (98-107) mmol/L Carbon Dioxide (22-30) mmol/L Anion Gap (10-20) BUN (9-20) mg/dl Creatinine (0.8-1.5) mg/dl Est GFR ( Amer) Est GFR (Non-Af Amer) POC Glucose (mg/dL) 152 H (65-110) mg/dL Random Glucose (75-110) mg/dL Calcium (8.4-10.2) mg/dL Total Bilirubin (0.2-1.3) mg/dl AST (17-59) U/L ALT (21-72) U/L Alkaline Phosphatase (38-126) U/L Total Protein (6.3-8.2) G/DL Albumin (3.5-5.0) g/dL Globulin (2.2-3.9) gm/dL Albumin/Globulin Ratio (1.0-2.1) Laboratory Results - last 24 hr 09/21/17 09/21/17 09/22/17 17:00 21:03 04:21 WBC RBC Hgb Hct MCV MCH MCHC RDW Plt Count pCO2 pO2 HCO3 ABG pH ABG Total CO2 ABG O2 Saturation ABG O2 Content ABG Base Excess ABG Hemoglobin ABG Carboxyhemoglobin POC ABG HHb (Measured) ABG Methemoglobin ABG O2 Capacity Andry Test A-a O2 Difference Hgb O2 Saturation Vent Mode Mechanical Rate FiO2 Tidal Volume PEEP Sodium Potassium Chloride Carbon Dioxide Anion Gap BUN Creatinine Est GFR ( Amer) Est GFR (Non-Af Amer) POC Glucose (mg/dL) 152 H 174 H 170 H Random Glucose Calcium Total Bilirubin AST ALT Alkaline Phosphatase Total Protein Albumin Globulin Albumin/Globulin Ratio 09/22/17 09/22/17 09/22/17 05:00 05:00 05:03 WBC 10.2 RBC 2.89 L Hgb 8.2 L Hct 26.0 L MCV 89.8 MCH 28.3 MCHC 31.5 L RDW 18.7 H Plt Count 201 pCO2 50 H pO2 91 HCO3 29.8 H ABG pH 7.41 ABG Total CO2 33.2 H ABG O2 Saturation 99.4 H ABG O2 Content 11.9 L ABG Base Excess 6.2 H ABG Hemoglobin 8.6 L ABG Carboxyhemoglobin 1.7 H POC ABG HHb (Measured) 0.6 ABG Methemoglobin 0.9 ABG O2 Capacity 12.0 L Andry Test Yes A-a O2 Difference 132.0 Hgb O2 Saturation 96.8 Vent Mode A/c Mechanical Rate 12 FiO2 40.0 Tidal Volume 450 PEEP 5 Sodium 148 Potassium 4.4 Chloride 107 Carbon Dioxide 31 H Anion Gap 14 BUN 58 H Creatinine 2.2 H Est GFR ( Amer) 36 Est GFR (Non-Af Amer) 30 POC Glucose (mg/dL) Random Glucose 164 H Calcium 9.2 Total Bilirubin 0.2 AST 35 ALT 28 Alkaline Phosphatase 273 H Total Protein 6.2 L Albumin 2.6 L Globulin 3.5 Albumin/Globulin Ratio 0.7 L 09/22/17 11:35 WBC RBC Hgb Hct MCV MCH MCHC RDW Plt Count pCO2 pO2 HCO3 ABG pH ABG Total CO2 ABG O2 Saturation ABG O2 Content ABG Base Excess ABG Hemoglobin ABG Carboxyhemoglobin POC ABG HHb (Measured) ABG Methemoglobin ABG O2 Capacity Andry Test A-a O2 Difference Hgb O2 Saturation Vent Mode Mechanical Rate FiO2 Tidal Volume PEEP Sodium Potassium Chloride Carbon Dioxide Anion Gap BUN Creatinine Est GFR ( Amer) Est GFR (Non-Af Amer) POC Glucose (mg/dL) 200 H Random Glucose Calcium Total Bilirubin AST ALT Alkaline Phosphatase Total Protein Albumin Globulin Albumin/Globulin Ratio Fingerstick Blood Sugar Results: 200 Review of Systems - Review of Systems Systems not reviewed;Unavailable: Intubated Critical Care Progress Note - Ventilator Checklist Head of Bed 30 Degrees: Yes Daily Sedation Vacation: Yes Daily Assessment of Readiness to Wean: Yes Daily Spontaneous Breathing Trial: Yes PUD Prophalyxis: Yes DVT Prophylaxis: Yes Oral Care with Chlorhexidine Gluconate {CHG}: Yes Assessment/Plan (1) Cardiac arrest Current Visit: Yes Status: Acute Comment: Prolonged Cardiac Arrest and sever brain anoxic injury with ROSC Patient unresponsive to painful stimuli (2) Anoxic brain damage Current Visit: Yes Status: Acute (3) Acute respiratory failure Current Visit: Yes Status: Acute (4) Pleural effusion Current Visit: Yes Status: Acute Comment: S/P thoracocentesis and chest tube (5) Sepsis Current Visit: Yes Status: Acute (6) Acute renal failure Current Visit: Yes Status: Resolved
[2017-09-22] MEDS: Acetaminophen 650mg/20.3ml solution UD PO PRN (22:35)
[2017-09-23] MEDS: Albuterol-Ipratrop 3 mg / 0.5 (3 ml) UD INH SCH ×4 (03:52→15:52)
[2017-09-23 04:31] LABS: ABG ALLEN TEST YES; ARTERIAL BLOOD GAS HCO3 31.1 mmol/L (21-28); ARTERIAL BLOOD GAS HEMOGLOBIN 7.3 g/dL (11.7-17.4); ARTERIAL BLOOD GAS O2 CAPACITY 10.1 mL/dL (16-24); ARTERIAL BLOOD GAS O2 CONTENT 10.2 ML/dL (15-23); ARTERIAL BLOOD GAS O2 SAT 100.6 % (95-98); ARTERIAL BLOOD GAS PCO2 43 mm/Hg (35-45); ARTERIAL BLOOD GAS PH 7.48 (7.35-7.45); ARTERIAL BLOOD GAS PO2 91 mm/Hg (80-100); ARTERIAL BLOOD GAS TCO2 33.3 mmol/L (22-28)
[2017-09-23 05:35] LABS: CALCIUM 9.2 mg/dL (8.4-10.2)
[2017-09-23] MEDS ORDERED: Acetaminophen 650mg/20.3ml solution UD PO PRN (05:35)
[2017-09-23 06:11] LABS: HEMOGLOBIN 7.4 g/dL (12.0-18.0); MEAN CELL VOLUME 89.4 fl (80.0-94.0); MEAN CORPUSCULAR HEMOGLOBIN 28.5 pg (27.0-31.0); MEAN CORPUSCULAR HGB CONC 31.9 g/dL (33.0-37.0); RBC 2.59 Mil/uL (4.40-5.90); WHITE BLOOD COUNT 8.7 K/uL (4.8-10.8)
[2017-09-23] MEDS ORDERED: Levothyroxine 50 MCG TAB PO SCH (06:30)
[2017-09-23] MEDS ORDERED: Ergocalciferol 50,000 Intl Units Cap PO SCH ×2 (09:00)
[2017-09-23] MEDS ORDERED: diltiaZEM 180 mg/24 Hours CD Cap PO SCH (09:00)
[2017-09-23] MEDS: Morphine 15 mg Immediate Release Tab PO SCH ×2 (09:56→17:04)
[2017-09-23] MEDS: Lidocaine 5% Patch TD SCH (09:58)
[2017-09-23] MEDS: levETIRAcetam 100 mg/ml (5ml) Oral Syringe PO SCH ×2 (10:04→16:54)
--- NOTE | 2017-09-23 10:04 | RAD ---
HISTORY: intubated COMPARISON: Chest radiograph dated 09/22/2017. FINDINGS: LUNGS: Left basilar atelectasis. PLEURA: Small left pleural effusion. No pneumothorax apparent. CARDIOVASCULAR: Atherosclerotic aortic calcifications. Cardiomediastinal silhouette stably enlarged. OSSEOUS STRUCTURES: Unchanged. VISUALIZED UPPER ABDOMEN: Normal. OTHER FINDINGS: Endotracheal and enteric tubes, unchanged. Left upper extremity PICC, unchanged. Left basilar pigtail chest tube, unchanged. IMPRESSION: Stable small left pleural effusion with pigtail chest tube in place. No significant interval change.
--- NOTE | 2017-09-23 12:13 | CP.CCUPN ---
CCU Subjective - Physician Review Events Since Last Encounter (Free Text): 09/23/17 12:08 persistent vegetative state. CCU Objective - Vital Signs / Intake & Output Vital Signs (Last 4 hours): Vital Signs Temp Pulse Resp BP Pulse Ox 09/23/17 10:10 99 H 150/75 09/23/17 10:03 99 H 150/75 09/23/17 10:01 99 H 155/66 H 09/23/17 08:38 98.5 F 92 H 15 147/71 100 Intake and Output (Last 8hrs): Intake & Output 09/22/17 09/23/17 09/23/17 22:59 06:59 14:59 Intake Total 650 482 Output Total 800 510 Balance -150 -28 Intake: IV 20 12 Tube Feeding 330 320 Free Water Flush 300 150 Output: Chest Tube Drainage 100 110 Left Lateral Chest 100 110 Urine 700 400 Urethral (Salazar) 700 400 Other: # Bowel Movements 1 0 - Physical Exam Physical Exam Limitations: Positive for: Altered Mental Status Head: Positive for: Atraumatic, Normocephalic Pupils: Positive for: PERRL Extroacular Muscles: Positive for: EOMI Conjunctiva: Negative for: Icteric Mouth: Positive for: Moist Mucous Membranes Nose (External): Negative for: Lesions Neck: Positive for: Normal Range of Motion (Supple ), Other (central line: left chest wall in place with dressing, clean and dry.) Respiratory/Chest: Positive for: Good Air Exchange, Rhonchi (Left basilar and mild lung rhonchi greater on the left than right ). Negative for: Respiratory Distress, Tachypneic Cardiovascular: Positive for: Regular Rate and Rhythm, Normal S1, S2. Negative for: Tachycardic, Bradycardic Abdomen: Negative for: Tenderness, Distention, Guarding Genitourinary Male: Positive for: Penile Swelling, Testicle Swelling Upper Extremity: Positive for: Edema (bilat upper extremity edema noted no change from previous exam but equal pulses bilaterally ), NORMAL PULSES, Capillary Refill < 2s Lower Extremity: Negative for: Edema, CALF TENDERNESS Neurological: Negative for: GCS=15 (GCS 3), Speech Normal, Motor Func Grossly Intact Skin: Positive for: Warm, Dry, Other (supeficial abrasion of left hand healing well ) Psychiatric: Positive for: Other (Patient unresponsive to painful stimuli). Negative for: Alert, Oriented x 3 - Medications Active Medications: Active Medications Generic Name Dose Route Start Last Admin Trade Name Freq PRN Reason Stop Dose Admin Acetaminophen 650 mg 09/23/17 05:35 Tylenol 650mg/20.3ml Solution Ud PO Q4 PRN for Temp. of 100.5 and above Albuterol/Ipratropium 3 ml 09/23/17 08:00 09/23/17 11:18 Duoneb 3 Mg/0.5 Mg (3 Ml) Ud INH 3 ml RQ4 [facility]OMAS Administration Amlodipine Besylate 10 mg 09/23/17 09:00 09/23/17 10:03 Norvasc PO 10 mg DAILY [facility]OMAS Administration Bumetanide 1 mg 09/23/17 09:00 09/23/17 10:01 Bumex PO 1 mg BID THOMAS Administration Calcitriol 0.25 mcg 09/26/17 09:00 Rocaltrol PO FRI [facility] Calcium Acetate 1,334 mg 09/23/17 07:30 09/23/17 10:02 Phoslo PO 1,334 mg WM [facility]OMAS Administration Diltiazem HCl 360 mg 09/23/17 09:00 09/23/17 10:01 Cardizem Cd PO 360 mg DAILY [facility] Administration Doxazosin Mesylate 1 mg 09/23/17 22:00 Cardura PO HS [facility] Epoetin Roel 10,000 unit 09/24/17 09:00 Procrit SC MWF [facility] Ergocalciferol 1 cap 09/23/17 09:00 Drisdol 50,000 Intl Units Cap PO Q7D [facility] Heparin Sodium (Porcine) 5,000 units 09/23/17 09:00 09/23/17 10:04 Heparin SC 5,000 units Q8 [facility]OM[facility] Administration Protocol Hydralazine HCl 100 mg 09/23/17 07:00 09/23/17 10:10 Apresoline PO 100 mg Q8H [facility] Administration Iron Sucrose 100 mg/ Sodium 105 mls @ 105 mls/hr 09/23/17 09:00 09/23/17 10: 07 Chloride IVPB 10/01/17 09:01 105 mls/hr DAILY [facility] Administration Lactic Acid 1 applic 09/23/17 09:00 09/23/17 09:56 Lac-Hydrin 12% Lotion (225 G) TOP 1 applic TID THOMAS Administration Levetiracetam 500 mg 09/23/17 09:00 09/23/17 10:04 Keppra PO 500 mg BID [facility] Administration Levothyroxine Sodium 50 mcg 09/23/17 06:30 09/23/17 06:52 Synthroid PO 50 mcg DAILY@0630 [facility] Administration Lidocaine 1 ea 09/23/17 09:00 09/23/17 09:58 Lidoderm TD Not Given DAILY [facility] Mirtazapine 30 mg 09/23/17 22:00 Remeron PO HS [facility] Morphine Sulfate 15 mg 09/23/17 10:00 09/23/17 09:56 Morphine Immediate Release Tab PO Not Given Q6 [facility]OMAS - Patient Studies Lab Studies: Microbiology Studies 09/19/17 09:55 Gram Stain - Final Trachasp Sputum Culture - Final Klebsiella Pneumoniae Ssp Pneu Lab Studies 09/23/17 09/23/17 09/23/17 Range/Units 11:21 06:07 04:20 WBC (4.8-10.8) K/uL RBC (4.40-5.90) Mil/uL Hgb (12.0-18.0) g/dL Hct (35.0-51.0) % MCV (80.0-94.0) fl MCH (27.0-31.0) pg MCHC (33.0-37.0) g/dL RDW (11.5-14.5) % Plt Count (130-400) K/uL pCO2 (35-45) mm/Hg pO2 (80-100) mm/Hg HCO3 (21-28) mmol/L ABG pH (7.35-7.45) ABG Total CO2 (22-28) mmol/L ABG O2 Saturation (95-98) % ABG O2 Content (15-23) ML/dL ABG Base Excess (-2.0-3.0) mmol/L ABG Hemoglobin (11.7-17.4) g/dL ABG Carboxyhemoglobin (0.5-1.5) % POC ABG HHb (Measured) (0.0-5.0) % ABG Methemoglobin (0.0-3.0) % ABG O2 Capacity (16-24) mL/dL Andry Test A-a O2 Difference mm/Hg Hgb O2 Saturation (95.0-98.0) % Vent Mode Mechanical Rate FiO2 % Tidal Volume PEEP Sodium 149 H (132-148) mmol/l Potassium 4.1 (3.6-5.0) MMOL/L Chloride 110 H (98-107) mmol/L Carbon Dioxide 28 (22-30) mmol/L Anion Gap 15 (10-20) BUN 58 H (9-20) mg/dl Creatinine 2.3 H (0.8-1.5) mg/dl Est GFR ( Amer) 34 Est GFR (Non-Af Amer) 29 POC Glucose (mg/dL) 224 H 226 H (65-110) mg/dL Random Glucose 218 H (75-110) mg/dL Calcium 9.2 (8.4-10.2) mg/dL 09/23/17 09/23/17 09/22/17 Range/Units 04:20 04:20 21:19 WBC 8.7 (4.8-10.8) K/uL RBC 2.59 L (4.40-5.90) Mil/uL Hgb 7.4 L (12.0-18.0) g/dL Hct 23.2 L (35.0-51.0) % MCV 89.4 (80.0-94.0) fl MCH 28.5 (27.0-31.0) pg MCHC 31.9 L (33.0-37.0) g/dL RDW 18.0 H (11.5-14.5) % Plt Count 170 (130-400) K/uL pCO2 43 (35-45) mm/Hg pO2 91 (80-100) mm/Hg HCO3 31.1 H (21-28) mmol/L ABG pH 7.48 H (7.35-7.45) ABG Total CO2 33.3 H (22-28) mmol/L ABG O2 Saturation 100.6 H (95-98) % ABG O2 Content 10.2 L (15-23) ML/dL ABG Base Excess 7.8 H (-2.0-3.0) mmol/L ABG Hemoglobin 7.3 L (11.7-17.4) g/dL ABG Carboxyhemoglobin 2.4 H (0.5-1.5) % POC ABG HHb (Measured) -0.6 L (0.0-5.0) % ABG Methemoglobin 0.2 (0.0-3.0) % ABG O2 Capacity 10.1 L (16-24) mL/dL Andry Test Yes A-a O2 Difference 140.0 mm/Hg Hgb O2 Saturation 98.0 (95.0-98.0) % Vent Mode Prvc/ac Mechanical Rate 450 FiO2 40.0 % Tidal Volume 12 PEEP 5 Sodium (132-148) mmol/l Potassium (3.6-5.0) MMOL/L Chloride (98-107) mmol/L Carbon Dioxide (22-30) mmol/L Anion Gap (10-20) BUN (9-20) mg/dl Creatinine (0.8-1.5) mg/dl Est GFR ( Amer) Est GFR (Non-Af Amer) POC Glucose (mg/dL) 248 H (65-110) mg/dL Random Glucose (75-110) mg/dL Calcium (8.4-10.2) mg/dL 09/22/17 Range/Units 16:20 WBC (4.8-10.8) K/uL RBC (4.40-5.90) Mil/uL Hgb (12.0-18.0) g/dL Hct (35.0-51.0) % MCV (80.0-94.0) fl MCH (27.0-31.0) pg MCHC (33.0-37.0) g/dL RDW (11.5-14.5) % Plt Count (130-400) K/uL pCO2 (35-45) mm/Hg pO2 (80-100) mm/Hg HCO3 (21-28) mmol/L ABG pH (7.35-7.45) ABG Total CO2 (22-28) mmol/L ABG O2 Saturation (95-98) % ABG O2 Content (15-23) ML/dL ABG Base Excess (-2.0-3.0) mmol/L ABG Hemoglobin (11.7-17.4) g/dL ABG Carboxyhemoglobin (0.5-1.5) % POC ABG HHb (Measured) (0.0-5.0) % ABG Methemoglobin (0.0-3.0) % ABG O2 Capacity (16-24) mL/dL Andry Test A-a O2 Difference mm/Hg Hgb O2 Saturation (95.0-98.0) % Vent Mode Mechanical Rate FiO2 % Tidal Volume PEEP Sodium (132-148) mmol/l Potassium (3.6-5.0) MMOL/L Chloride (98-107) mmol/L Carbon Dioxide (22-30) mmol/L Anion Gap (10-20) BUN (9-20) mg/dl Creatinine (0.8-1.5) mg/dl Est GFR ( Amer) Est GFR (Non-Af Amer) POC Glucose (mg/dL) 186 H (65-110) mg/dL Random Glucose (75-110) mg/dL Calcium (8.4-10.2) mg/dL Laboratory Results - last 24 hr 09/22/17 09/22/17 09/23/17 16:20 21:19 04:20 WBC RBC Hgb Hct MCV MCH MCHC RDW Plt Count pCO2 43 pO2 91 HCO3 31.1 H ABG pH 7.48 H ABG Total CO2 33.3 H ABG O2 Saturation 100.6 H ABG O2 Content 10.2 L ABG Base Excess 7.8 H ABG Hemoglobin 7.3 L ABG Carboxyhemoglobin 2.4 H POC ABG HHb (Measured) -0.6 L ABG Methemoglobin 0.2 ABG O2 Capacity 10.1 L Andry Test Yes A-a O2 Difference 140.0 Hgb O2 Saturation 98.0 Vent Mode Prvc/ac Mechanical Rate 450 FiO2 40.0 Tidal Volume 12 PEEP 5 Sodium Potassium Chloride Carbon Dioxide Anion Gap BUN Creatinine Est GFR ( Amer) Est GFR (Non-Af Amer) POC Glucose (mg/dL) 186 H 248 H Random Glucose Calcium 09/23/17 09/23/17 09/23/17 04:20 04:20 06:07 WBC 8.7 RBC 2.59 L Hgb 7.4 L Hct 23.2 L MCV 89.4 MCH 28.5 MCHC 31.9 L RDW 18.0 H Plt Count 170 pCO2 pO2 HCO3 ABG pH ABG Total CO2 ABG O2 Saturation ABG O2 Content ABG Base Excess ABG Hemoglobin ABG Carboxyhemoglobin POC ABG HHb (Measured) ABG Methemoglobin ABG O2 Capacity Andry Test A-a O2 Difference Hgb O2 Saturation Vent Mode Mechanical Rate FiO2 Tidal Volume PEEP Sodium 149 H Potassium 4.1 Chloride 110 H Carbon Dioxide 28 Anion Gap 15 BUN 58 H Creatinine 2.3 H Est GFR ( Amer) 34 Est GFR (Non-Af Amer) 29 POC Glucose (mg/dL) 226 H Random Glucose 218 H Calcium 9.2 09/23/17 11:21 WBC RBC Hgb Hct MCV MCH MCHC RDW Plt Count pCO2 pO2 HCO3 ABG pH ABG Total CO2 ABG O2 Saturation ABG O2 Content ABG Base Excess ABG Hemoglobin ABG Carboxyhemoglobin POC ABG HHb (Measured) ABG Methemoglobin ABG O2 Capacity Andry Test A-a O2 Difference Hgb O2 Saturation Vent Mode Mechanical Rate FiO2 Tidal Volume PEEP Sodium Potassium Chloride Carbon Dioxide Anion Gap BUN Creatinine Est GFR ( Amer) Est GFR (Non-Af Amer) POC Glucose (mg/dL) 224 H Random Glucose Calcium Fingerstick Blood Sugar Results: 248 Review of Systems - Review of Systems Systems not reviewed;Unavailable: Altered Mental Status Assessment/Plan (1) Anoxic brain damage Assessment and plan: Patient has been unresponsive for days. Given his prolonged cardiac arrest, he has significant anoxic brain injury. It has been discussed with Dr. Patrick Cannon that there is no hope of recovery. Two physician decision, including myself, we will withdraw the patient from mechanical ventilation and he will be made comfortable. Critical Care time 35 minutes Current Visit: Yes Status: Acute
--- NOTE | 2017-09-23 12:33 | CP.PCM.PN ---
Subjective - Date & Time of Evaluation Date of Evaluation: 09/23/17 Time of Evaluation: 12:30 - Subjective Subjective: Pt seen and examined at bedside, still on comfort care. Intubated and not responsive to touch or painful stimuli. Nurses notes reviewed for overnight events Objective - Vital Signs/Intake and Output Vital Signs (last 24 hours): Temp Pulse Resp BP Pulse Ox 99.0 F 97 H 16 136/58 L 99 09/23/17 12:00 09/23/17 12:00 09/23/17 12:00 09/23/17 12:00 09/23/17 12:00 Intake and Output: 09/23/17 09/23/17 06:59 18:59 Intake Total 822 Output Total 750 Balance 72 - Medications Medications: Current Medications Acetaminophen (Tylenol 650mg/20.3ml Solution Ud) 650 mg PO Q4 PRN PRN Reason: for Temp. of 100.5 and above Albuterol/Ipratropium (Duoneb 3 Mg/0.5 Mg (3 Ml) Ud) 3 ml INH RQ4 [facility] Last Admin: 09/23/17 11:18 Dose: 3 ml Amlodipine Besylate (Norvasc) 10 mg PO DAILY [facility] Last Admin: 09/23/17 10:03 Dose: 10 mg Bumetanide (Bumex) 1 mg PO BID [facility] Last Admin: 09/23/17 10:01 Dose: 1 mg Calcitriol (Rocaltrol) 0.25 mcg PO FRI [facility] Calcium Acetate (Phoslo) 1,334 mg PO WM [facility] Last Admin: 09/23/17 10:02 Dose: 1,334 mg Diltiazem HCl (Cardizem Cd) 360 mg PO DAILY [facility] Last Admin: 09/23/17 10:01 Dose: 360 mg Doxazosin Mesylate (Cardura) 1 mg PO HS [facility] Epoetin Roel (Procrit) 10,000 unit SC MWF [facility] Ergocalciferol (Drisdol 50,000 Intl Units Cap) 1 cap PO Q7D [facility] Heparin Sodium (Porcine) (Heparin) 5,000 units SC Q8 [facility]OM[facility] PRN Reason: Protocol Last Admin: 09/23/17 10:04 Dose: 5,000 units Hydralazine HCl (Apresoline) 100 mg PO Q8H [facility] Last Admin: 09/23/17 10:10 Dose: 100 mg Iron Sucrose 100 mg/ Sodium (Chloride) 105 mls @ 105 mls/hr IVPB DAILY [facility] Stop: 10/01/17 09:01 Last Admin: 09/23/17 10:07 Dose: 105 mls/hr Lactic Acid (Lac-Hydrin 12% Lotion (225 G)) 1 applic TOP TID [facility] Last Admin: 09/23/17 09:56 Dose: 1 applic Levetiracetam (Keppra) 500 mg PO BID [facility] Last Admin: 09/23/17 10:04 Dose: 500 mg Levothyroxine Sodium (Synthroid) 50 mcg PO DAILY@0630 [facility] Last Admin: 09/23/17 06:52 Dose: 50 mcg Lidocaine (Lidoderm) 1 ea TD DAILY [facility] Last Admin: 09/23/17 09:58 Dose: Not Given Mirtazapine (Remeron) 30 mg PO HS [facility] Morphine Sulfate (Morphine Immediate Release Tab) 15 mg PO Q6 [facility] Last Admin: 09/23/17 09:56 Dose: Not Given - Labs Labs: 09/23/17 04:20 09/23/17 04:20 PT 12.1 Seconds (9.8-13.1) 09/19/17 09:11 INR 1.1 (0.9-1.2) 09/19/17 09:11 APTT 34.2 Seconds (25.6-37.1) 07/18/17 05:30 - Constitutional Appears: Cachectic, Chronically Ill - Respiratory Exam Respiratory Exam: Decreased Breath Sounds Additional comments: Ventilator assisted breathing - Cardiovascular Exam Cardiovascular Exam: REGULAR RHYTHM, +S1, +S2 - GI/Abdominal Exam GI & Abdominal Exam: Soft. absent: Distended - Neurological Exam Neurological Exam: absent: Alert, Awake, Oriented x3 - Skin Skin Exam: Dry, Mottled Assessment and Plan - Assessment and Plan (Free Text) Assessment: 67M, homeless, with profound health issues that are currently stabilized with a multitude of medications that includes oxygen. He is not medically or financially stable for discharge to home at this time. Completed C.diff treatment on 09/18/17. Chronic pleural effusion. Currently on comfort care Plan: Pt is currently on comfort care Continue with current care as ordered Continue to monitor for signs of pain and medicate accordingly Continue with all medications as ordered
--- NOTE | 2017-09-23 14:04 | CP.PCM.PCO ---
Assessment/Plan - Assessment and Plan (Free Text) Assessment: Seen in ICU No improvement in medical condition pt does not respond to name calling or sternal rub pt is vent dependent with poor quality of life Pt's condition has been deteriorating over the last few months. Pt has been bed bound. at times with lung white out due to mucous plugging. Despite aggressive RAAS blockade pt's condition has continue to worsen. Discussed with residential glazier agreeable to terminal extubation Assessment & Plan - Assessment and Plan (Free Text) Assessment: 2 physician termminal extubation pt refer to residential glazier note
--- NOTE | 2017-09-23 18:12 | CP.PCM.PN ---
Subjective - Date & Time of Evaluation Date of Evaluation: 09/23/17 Time of Evaluation: 16:00 - Subjective Subjective: SEEN IN ICU ON RENAL F/U RENAL FUNCTION STABLE .. e GFR 29 ML /M K IS NOW OK HYPERNATREMIA NOTED .. NEEDS HYPOTONIC IVF CASE D/W [employer] Objective - Vital Signs/Intake and Output Vital Signs (last 24 hours): Temp Pulse Resp BP Pulse Ox 100.2 F H 97 H 24 149/63 94 L 09/23/17 16:00 09/23/17 16:00 09/23/17 16:00 09/23/17 16:00 09/23/17 16:00 Intake and Output: 09/23/17 09/23/17 06:59 18:59 Intake Total 822 250 Output Total 750 Balance 72 250 - Medications Medications: Current Medications Acetaminophen (Tylenol 650mg/20.3ml Solution Ud) 650 mg PO Q4 PRN PRN Reason: for Temp. of 100.5 and above Albuterol/Ipratropium (Duoneb 3 Mg/0.5 Mg (3 Ml) Ud) 3 ml INH RQ4 [facility] Last Admin: 09/23/17 15:52 Dose: 3 ml Amlodipine Besylate (Norvasc) 10 mg PO DAILY [facility] Last Admin: 09/23/17 10:03 Dose: 10 mg Bumetanide (Bumex) 1 mg PO BID [facility] Last Admin: 09/23/17 16:52 Dose: Not Given Calcitriol (Rocaltrol) 0.25 mcg PO FRI [facility] Calcium Acetate (Phoslo) 1,334 mg PO WM [facility] Last Admin: 09/23/17 17:40 Dose: Not Given Diltiazem HCl (Cardizem Cd) 360 mg PO DAILY [facility] Last Admin: 09/23/17 10:01 Dose: 360 mg Doxazosin Mesylate (Cardura) 1 mg PO HS [facility] Epoetin Roel (Procrit) 10,000 unit SC MWF [facility] Ergocalciferol (Drisdol 50,000 Intl Units Cap) 1 cap PO Q7D [facility] Last Admin: 09/23/17 15:36 Dose: Not Given Heparin Sodium (Porcine) (Heparin) 5,000 units SC Q8 [facility] PRN Reason: Protocol Last Admin: 09/23/17 16:54 Dose: 5,000 units Hydralazine HCl (Apresoline) 100 mg PO Q8H [facility] Last Admin: 09/23/17 16:52 Dose: Not Given Iron Sucrose 100 mg/ Sodium (Chloride) 105 mls @ 105 mls/hr IVPB DAILY [facility] Stop: 10/01/17 09:01 Last Admin: 09/23/17 10:07 Dose: 105 mls/hr Lactic Acid (Lac-Hydrin 12% Lotion (225 G)) 1 applic TOP TID [facility] Last Admin: 09/23/17 17:01 Dose: 1 applic Levetiracetam (Keppra) 500 mg PO BID [facility] Last Admin: 09/23/17 16:54 Dose: Not Given Levothyroxine Sodium (Synthroid) 50 mcg PO DAILY@0630 [facility] Last Admin: 09/23/17 06:52 Dose: 50 mcg Lidocaine (Lidoderm) 1 ea TD DAILY [facility] Last Admin: 09/23/17 09:58 Dose: Not Given Mirtazapine (Remeron) 30 mg PO HS [facility] Morphine Sulfate (Morphine Immediate Release Tab) 15 mg PO Q6 [facility] Last Admin: 09/23/17 17:04 Dose: Not Given - Labs Labs: 09/23/17 04:20 09/23/17 04:20 PT 12.1 Seconds (9.8-13.1) 09/19/17 09:11 INR 1.1 (0.9-1.2) 09/19/17 09:11 APTT 34.2 Seconds (25.6-37.1) 07/18/17 05:30
[2017-09-24 06:08] LABS: HEMOGLOBIN 8.9 g/dL (12.0-18.0); MEAN CELL VOLUME 89.6 fl (80.0-94.0); MEAN CORPUSCULAR HEMOGLOBIN 28.1 pg (27.0-31.0); MEAN CORPUSCULAR HGB CONC 31.4 g/dL (33.0-37.0); RBC 3.16 Mil/uL (4.40-5.90); RED CELL DISTRIBUTION WIDTH 18.3 % (11.5-14.5)
[2017-09-24 06:13] LABS: CALCIUM 9.5 mg/dL (8.4-10.2)
[2017-09-24] MEDS ORDERED: EPOETIN ALFA 10,000 UNIT/ML ML SC SCH (09:00)
[2017-09-24] MEDS: Lidocaine 5% Patch TD SCH (09:41)
[2017-09-24] MEDS ORDERED: Chlorhexidine Gluconate 1 APPL/PKT TP ONE (09:50)
--- NOTE | 2017-09-24 13:13 | CP.CCUPN ---
CCU Subjective - Physician Review Subjective (Free Text): Events regarding terminal extubation noted yesterday. He remains comatose and unresponsive to stimuli, nor is he exhibiting any purposeful movements. Hemodynamics and oxygenation are stable on 50% Ventimask, off vasopressors. Other Vitals and I/Os reviewed. Temperature max is 100.4 yesterday. Negative fluid balance of 1.0 L noted. Left pigtail chest catheter drained approx. 160 ml overnight. ROS: No other pertinent negs or positives on 10+ system review: Obtunded PMSFH: All other historical Nursing and physician documentation reviewed to date; no new pertinent info noted relevant to current medical problems. EXAM- HEENT: no icterus, no gaze preference, pupils equal and reactive, corneal reflexes present, no icterus NECK: No JVD, supple, carotids equal upstroke bilat/no bruits CHEST: decreased BS bases, otherwise clear bilat, no wheezes audible, left chest tube/pigtail intact HEART: regular distant, S1S2, no rubs. ABD: soft, no distention, no tympany, no palp tenderness, BS hypoactive EXT: No peripheral/ digital cyanosis, no calf tenderness or palpable cords, distal pulses intact and symmetrical. NEURO: absent tone in all extremities SKIN: no rashes, warm and dry. LABS: WBC= 9.0 HGB= 8.9 PLTs= 231 K Na= 154 K= 4.1 CL= 112 HCO3= 29 BUN/Cr= 59/2.4 BS= 172 MAJOR PROBLEMS: 1. Anoxic encephalopathy 2. Terminal extubation from acute respiratory failure for recurrent bilateral pleural effusions 3. CHINTAN with hypernatremia 4. Chronic disease anemia PLAN: 1. DNR status reconfirmed. 2. Medical care directed towards comfort care. 3. Last CXR from yesterday reviewed: Left lung shows residual effusion versus basilar / lobar atelectasis. Since no further improvement in CXR findings over the past week, consider Pigtail catheter removal . 4. Ethics committee meeting to discuss further goals of care versus comfort measures only. CCU Objective - Vital Signs / Intake & Output Vital Signs (Last 4 hours): Vital Signs Temp Pulse Resp BP Pulse Ox 09/24/17 12:00 98.8 F 94 H 21 151/70 H 96 09/24/17 10:00 98 H 25 H 168/72 H 100 Intake and Output (Last 8hrs): Intake & Output 09/23/17 09/24/17 09/24/17 22:59 06:59 14:59 Intake Total 120 30 30 Output Total 760 650 Balance -640 -620 30 Intake: IV 20 30 30 Intake, Piggyback 100 Free Water Flush 0 Output: Chest Tube Drainage 60 100 Left Lateral Chest 60 100 Urine 700 550 Urethral (Salazar) 700 550 Other: # Bowel Movements 0 1 - Physical Exam Head: Positive for: Atraumatic, Normocephalic Pupils: Positive for: PERRL Extroacular Muscles: Positive for: EOMI Conjunctiva: Negative for: Icteric Mouth: Positive for: Moist Mucous Membranes Nose (External): Negative for: Lesions Neck: Positive for: Normal Range of Motion (Supple ), Other (central line: left chest wall in place with dressing, clean and dry.) Respiratory/Chest: Positive for: Good Air Exchange, Rhonchi (Left basilar and mild lung rhonchi greater on the left than right ). Negative for: Respiratory Distress, Tachypneic Cardiovascular: Positive for: Regular Rate and Rhythm, Normal S1, S2. Negative for: Tachycardic, Bradycardic Abdomen: Negative for: Tenderness, Distention, Guarding Genitourinary Male: Positive for: Penile Swelling, Testicle Swelling Upper Extremity: Positive for: Edema (bilat upper extremity edema noted no change from previous exam but equal pulses bilaterally ), NORMAL PULSES, Capillary Refill < 2s Lower Extremity: Negative for: Edema, CALF TENDERNESS Neurological: Negative for: GCS=15 (GCS 3), Speech Normal, Motor Func Grossly Intact Skin: Positive for: Warm, Dry, Other (supeficial abrasion of left hand healing well ) Psychiatric: Positive for: Other (Patient unresponsive to painful stimuli). Negative for: Alert, Oriented x 3 - Medications Active Medications: Active Medications Generic Name Dose Route Start Last Admin Trade Name Freq PRN Reason Stop Dose Admin Acetaminophen 650 mg 09/23/17 05:35 Tylenol 650mg/20.3ml Solution Ud PO Q4 PRN for Temp. of 100.5 and above Levetiracetam 500 mg 09/23/17 09:00 09/23/17 16:54 Keppra PO Not Given BID [facility] Lidocaine 1 ea 09/23/17 09:00 09/24/17 09:41 Lidoderm TD Not Given DAILY [facility] Lorazepam 2 mg 09/23/17 19:01 Ativan IVP Q6 PRN Agitation - Patient Studies Lab Studies: Lab Studies 09/24/17 09/24/17 09/24/17 Range/Units 11:52 04:20 04:20 WBC 9.0 (4.8-10.8) K/uL RBC 3.16 L (4.40-5.90) Mil/uL Hgb 8.9 L (12.0-18.0) g/dL Hct 28.3 L (35.0-51.0) % MCV 89.6 (80.0-94.0) fl MCH 28.1 (27.0-31.0) pg MCHC 31.4 L (33.0-37.0) g/dL RDW 18.3 H (11.5-14.5) % Plt Count 231 (130-400) K/uL Sodium 154 H (132-148) mmol/l Potassium 4.1 (3.6-5.0) MMOL/L Chloride 112 H (98-107) mmol/L Carbon Dioxide 29 (22-30) mmol/L Anion Gap 17 (10-20) BUN 59 H (9-20) mg/dl Creatinine 2.4 H (0.8-1.5) mg/dl Est GFR ( Amer) 33 Est GFR (Non-Af Amer) 27 POC Glucose (mg/dL) 144 H (65-110) mg/dL Random Glucose 172 H (75-110) mg/dL Calcium 9.5 (8.4-10.2) mg/dL 09/23/17 Range/Units 21:48 WBC (4.8-10.8) K/uL RBC (4.40-5.90) Mil/uL Hgb (12.0-18.0) g/dL Hct (35.0-51.0) % MCV (80.0-94.0) fl MCH (27.0-31.0) pg MCHC (33.0-37.0) g/dL RDW (11.5-14.5) % Plt Count (130-400) K/uL Sodium (132-148) mmol/l Potassium (3.6-5.0) MMOL/L Chloride (98-107) mmol/L Carbon Dioxide (22-30) mmol/L Anion Gap (10-20) BUN (9-20) mg/dl Creatinine (0.8-1.5) mg/dl Est GFR ( Amer) Est GFR (Non-Af Amer) POC Glucose (mg/dL) 149 H (65-110) mg/dL Random Glucose (75-110) mg/dL Calcium (8.4-10.2) mg/dL Laboratory Results - last 24 hr 09/23/17 09/24/17 09/24/17 21:48 04:20 04:20 WBC 9.0 RBC 3.16 L Hgb 8.9 L Hct 28.3 L MCV 89.6 MCH 28.1 MCHC 31.4 L RDW 18.3 H Plt Count 231 Sodium 154 H Potassium 4.1 Chloride 112 H Carbon Dioxide 29 Anion Gap 17 BUN 59 H Creatinine 2.4 H Est GFR ( Amer) 33 Est GFR (Non-Af Amer) 27 POC Glucose (mg/dL) 149 H Random Glucose 172 H Calcium 9.5 09/24/17 11:52 WBC RBC Hgb Hct MCV MCH MCHC RDW Plt Count Sodium Potassium Chloride Carbon Dioxide Anion Gap BUN Creatinine Est GFR ( Amer) Est GFR (Non-Af Amer) POC Glucose (mg/dL) 144 H Random Glucose Calcium Fingerstick Blood Sugar Results: 248
--- NOTE | 2017-09-24 14:43 | CP.PCM.PN ---
Subjective - Date & Time of Evaluation Date of Evaluation: 09/24/17 Time of Evaluation: 08:25 - Subjective Subjective: Pt terminally extubated 09/23/17, pt seen at bedside this morning, comatosed unresponsive. nurses notes reviewed. Objective - Vital Signs/Intake and Output Vital Signs (last 24 hours): Temp Pulse Resp BP Pulse Ox 98.8 F 94 H 21 151/70 H 96 09/24/17 12:00 09/24/17 12:00 09/24/17 12:00 09/24/17 12:00 09/24/17 12:00 Intake and Output: 09/24/17 09/24/17 06:59 18:59 Intake Total 50 30 Output Total 900 Balance -850 30 - Medications Medications: Current Medications Acetaminophen (Tylenol 650mg/20.3ml Solution Ud) 650 mg PO Q4 PRN PRN Reason: for Temp. of 100.5 and above Levetiracetam (Keppra) 500 mg PO BID [facility] Last Admin: 09/23/17 16:54 Dose: Not Given Lidocaine (Lidoderm) 1 ea TD DAILY [facility] Last Admin: 09/24/17 09:41 Dose: Not Given Lorazepam (Ativan) 2 mg IVP Q6 PRN PRN Reason: Agitation - Labs Labs: 09/24/17 04:20 09/24/17 04:20 PT 12.1 Seconds (9.8-13.1) 09/19/17 09:11 INR 1.1 (0.9-1.2) 09/19/17 09:11 APTT 34.2 Seconds (25.6-37.1) 07/18/17 05:30 - Constitutional Appears: Other - Respiratory Exam Respiratory Exam: Decreased Breath Sounds - Cardiovascular Exam Cardiovascular Exam: REGULAR RHYTHM - GI/Abdominal Exam GI & Abdominal Exam: Soft, Hypoactive Bowel Sounds - Extremities Exam Additional comments: upper extremities appears fluid filled bilaterally Assessment and Plan - Assessment and Plan (Free Text) Assessment: 67M, homeless, with profound health issues who suffered anxious brain injury on hospital day 88 after a 40minute code; pt was terminally extubated on 09/24/16 from acute respiratory failure for recurrent bilateral pleural effusion Pt currently [facility] Ethics committee meeting scheduled for Friday09/26/17 Continue with medications as ordered
[2017-09-24] MEDS: levETIRAcetam 100 mg/ml (5ml) Oral Syringe PO SCH ×2 (18:20→18:26)
[2017-09-25] MEDS: levETIRAcetam 100 mg/ml (5ml) Oral Syringe PO SCH ×2 (08:54→18:58)
[2017-09-25] MEDS: Lidocaine 5% Patch TD SCH (08:55)
--- NOTE | 2017-09-25 16:50 | CP.PCM.PN ---
Subjective - Date & Time of Evaluation Date of Evaluation: 09/25/17 Time of Evaluation: 13:00 - Subjective Subjective: Pt seen at bedside, off oxygen temporarily, chest tube continues to drain. pt remains unresponsive. nurses notes reviewed Objective - Vital Signs/Intake and Output Vital Signs (last 24 hours): Temp Pulse Resp BP Pulse Ox 98.2 F 101 H 28 H 168/73 H 92 L 09/25/17 16:23 09/25/17 16:23 09/25/17 16:23 09/25/17 16:23 09/25/17 16:23 Intake and Output: 09/25/17 09/25/17 06:59 18:59 Intake Total 410 335 Output Total 610 350 Balance -200 -15 - Medications Medications: Current Medications Acetaminophen (Tylenol 650mg/20.3ml Solution Ud) 650 mg PO Q4 PRN PRN Reason: for Temp. of 100.5 and above Levetiracetam (Keppra) 500 mg PO BID [facility] Last Admin: 09/25/17 08:54 Dose: 500 mg Lidocaine (Lidoderm) 1 ea TD DAILY [facility] Last Admin: 09/25/17 08:55 Dose: Not Given Lorazepam (Ativan) 2 mg IVP Q6 PRN PRN Reason: Agitation - Labs Labs: 09/24/17 04:20 09/24/17 04:20 PT 12.1 Seconds (9.8-13.1) 09/19/17 09:11 INR 1.1 (0.9-1.2) 09/19/17 09:11 APTT 34.2 Seconds (25.6-37.1) 07/18/17 05:30 - Constitutional Appears: Chronically Ill, Other - Head Exam Head Exam: NORMOCEPHALIC - Respiratory Exam Respiratory Exam: Decreased Breath Sounds - Cardiovascular Exam Cardiovascular Exam: +S1, +S2 - GI/Abdominal Exam GI & Abdominal Exam: Soft, Hypoactive Bowel Sounds - Extremities Exam Additional comments: upper extremity edema bilaterally - Neurological Exam Neurological Exam: absent: Alert, Awake Assessment and Plan - Assessment and Plan (Free Text) Assessment: 67M, homeless, with profound health issues who suffered anoxic brain injury on hospital day 88 after a 40minute code; pt was terminally extubated on 09/24/16 from acute respiratory failure for recurrent bilateral pleural effusion Pt remains unresponsive, giving a trial of been off oxygen today Pt currently [facility] Ethics committee meeting scheduled for Friday09/26/17 Continue with medications as ordered DNR/DNI
[2017-09-26 08:10] VITALS: BP 151/68; PULSE 94; RESP 16; TEMP 98.6; O2SAT 90
[2017-09-26] MEDS: Lidocaine 5% Patch TD SCH (08:56)
[2017-09-26] MEDS: levETIRAcetam 100 mg/ml (5ml) Oral Syringe PO SCH (08:56)
--- NOTE | 2017-09-26 15:20 | CP.PCM.PCO ---
Assessment/Plan - Assessment and Plan (Free Text) Assessment: chart reviewd in preparation for ethic meeting pt had 26 er visits/ admisison in 2013 pt has been here since 05/2017 pt has dm/htn/ex smoke pt has had LE edema/ anasarca since 2016 Unclear if pt has been compliant with his meds since he is homeless. no family sleeps in van. 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 no longer able to walk independently, must be fed and has lost 50lbs. pt remains on [address] with nasal cannuli on [facility]
--- NOTE | 2017-09-26 15:47 | CP.PCM.PRO ---
Pronouncement of Note - Clinical Findings Physical Exam: No Response Verbal/Painful Stimuli, Absent Peripheral Pulses{ Carotid & Femoral}, Absent Heart & Breath Sounds, Absence of Vital Signs - Pronouncement Time Time of Pronouncement of : 15:27 - Notifications Pronouncement Notifications: Atending Notified Principal Programmer Notified: No - Autopsy Autopsy Requested: No [place]
== END 2017-09-26 15:27 | DRG 584 ==
LOC: H.ER 19:47 → H.ERHOLD 20:40 → H.ICU/CCU 22:02 → H.TEL 06-24 12:02 → H.ICU/CCU 06-29 17:30 → H.TEL 07-28 23:25 → H.MEDSURG1 07-31 01:05 → H.TEL 08-03 06:03 → H.MEDSURG1 08-08 18:43 → H.ICU/CCU 09-18 00:39 → H.MEDSURG1 09-25 16:10
PROVIDERS: ADMIT Family Medicine Geriatric Medicine; ATTEND Family Medicine Geriatric Medicine
PROC: 06HN33Z Insertion of Infusion Device into Left Femoral Vein, Percutaneous Approach (ICD-10-PCS; 2017-06-23)
PROC: 0W9B3ZZ Drainage of Left Pleural Cavity, Percutaneous Approach (ICD-10-PCS; 2017-06-25)
PROC: 0W9B3ZX Drainage of Left Pleural Cavity, Percutaneous Approach, Diagnostic (ICD-10-PCS; 2017-06-25)
PROC: 0BH17EZ Insertion of Endotracheal Airway into Trachea, Via Natural or Artificial Opening (ICD-10-PCS; 2017-06-29)
PROC: 5A12012 Performance of Cardiac Output, Single, Manual (ICD-10-PCS; 2017-06-29)
PROC: 0BH17EZ Insertion of Endotracheal Airway into Trachea, Via Natural or Artificial Opening (ICD-10-PCS; 2017-07-04)
PROC: 5A1955Z Respiratory Ventilation, Greater than 96 Consecutive Hours (ICD-10-PCS; 2017-07-04)
PROC: 30233N1 Transfusion of Nonautologous Red Blood Cells into Peripheral Vein, Percutaneous Approach (ICD-10-PCS; 2017-07-06)
PROC: 0W9B30Z Drainage of Left Pleural Cavity with Drainage Device, Percutaneous Approach (ICD-10-PCS; principal; 2017-07-08)
PROC: 05H533Z Insertion of Infusion Device into Right Subclavian Vein, Percutaneous Approach (ICD-10-PCS; 2017-07-09)
PROC: 05H633Z Insertion of Infusion Device into Left Subclavian Vein, Percutaneous Approach (ICD-10-PCS; 2017-07-09)
PROC: 0W9900Z Drainage of Right Pleural Cavity with Drainage Device, Open Approach (ICD-10-PCS; 2017-07-15)
PROC: 0WP8X0Z Removal of Drainage Device from Chest Wall, External Approach (ICD-10-PCS; 2017-07-15)
PROC: 0BBN0ZX Excision of Right Pleura, Open Approach, Diagnostic (ICD-10-PCS; 2017-07-15)
PROC: 6A550Z2 Pheresis of Platelets, Single (ICD-10-PCS; 2017-07-15)
PROC: 0W993ZZ Drainage of Right Pleural Cavity, Percutaneous Approach (ICD-10-PCS; 2017-08-04)
PROC: 02HV33Z Insertion of Infusion Device into Superior Vena Cava, Percutaneous Approach (ICD-10-PCS; 2017-09-18)
PROC: 0W9B30Z Drainage of Left Pleural Cavity with Drainage Device, Percutaneous Approach (ICD-10-PCS; 2017-09-18)
PROC: 04HK33Z Insertion of Infusion Device into Right Femoral Artery, Percutaneous Approach (ICD-10-PCS; 2017-09-19)
PROC: 0BH17EZ Insertion of Endotracheal Airway into Trachea, Via Natural or Artificial Opening (ICD-10-PCS; 2017-09-19)
DX: A41.9 Sepsis, unspecified organism (principal); J18.9 Pneumonia, unspecified organism; G92 Toxic encephalopathy; J96.02 Acute respiratory failure with hypercapnia; J96.01 Acute respiratory failure with hypoxia; G93.1 Anoxic brain damage, not elsewhere classified; N17.0 Acute kidney failure with tubular necrosis; I50.33 Acute on chronic diastolic (congestive) heart failure; R65.21 Severe sepsis with septic shock; L89.152 Pressure ulcer of sacral region, stage 2; E11.22 Type 2 diabetes mellitus with diabetic chronic kidney disease; N39.0 Urinary tract infection, site not specified; N04.9 Nephrotic syndrome with unspecified morphologic changes; E11.21 Type 2 diabetes mellitus with diabetic nephropathy; E11.319 Type 2 diabetes mellitus with unspecified diabetic retinopathy without macular edema; E11.42 Type 2 diabetes mellitus with diabetic polyneuropathy; D69.59 Other secondary thrombocytopenia; I46.9 Cardiac arrest, cause unspecified; J91.8 Pleural effusion in other conditions classified elsewhere; F03.90 Unspecified dementia, unspecified severity, without behavioral disturbance, psychotic disturbance, mood disturbance, and anxiety; E87.5 Hyperkalemia; E87.0 Hyperosmolality and hypernatremia; I13.0 Hypertensive heart and chronic kidney disease with heart failure and stage 1 through stage 4 chronic kidney disease, or unspecified chronic kidney disease; N18.4 Chronic kidney disease, stage 4 (severe); E46 Unspecified protein-calorie malnutrition; E11.649 Type 2 diabetes mellitus with hypoglycemia without coma; A04.72 Enterocolitis due to Clostridium difficile, not specified as recurrent; R56.9 Unspecified convulsions; Z59.0 Homelessness; E11.65 Type 2 diabetes mellitus with hyperglycemia; D47.2 Monoclonal gammopathy; D63.1 Anemia in chronic kidney disease; N25.81 Secondary hyperparathyroidism of renal origin; Y95 Nosocomial condition; G89.29 Other chronic pain; L60.3 Nail dystrophy; Z66 Do not resuscitate; Z51.5 Encounter for palliative care; E22.1 Hyperprolactinemia; E03.9 Hypothyroidism, unspecified; E83.39 Other disorders of phosphorus metabolism; R68.0 Hypothermia, not associated with low environmental temperature; J95.811 Postprocedural pneumothorax; Z72.0 Tobacco use; Z78.1 Physical restraint status; T17.898A Other foreign object in other parts of respiratory tract causing other injury, initial encounter